=== PATIENT | female | born 1940 | race Caucasian/White ===

== ENCOUNTER 2023-04-19 10:06 | Outpatient (REF) | payer MEDICARE, SELFPAY ==
[2023-04-19 11:56] LABS: Hematocrit 41.5 % (36.0-48.0); Hemoglobin 12.7 g/dL (12.0-16.0); Mean Corpuscular HGB Conc 30.6 g/dL (29.9-35.2); Mean Corpuscular Hemoglobin 26.7 pg (26.7-34.0); Mean Corpuscular Volume 87.4 fL (81.0-99.0); Platelet Count 524 10^3/uL (150-450); Red Blood Count 4.75 10^6/uL (4.20-5.40); Red Cell Distribution Width 16.8 % (11.0-15.0); White Blood Count 25.1 10^3/uL (4.0-11.0)
[2023-04-19 12:40] LABS: Segmented Neut Absolute Manual 22.59 10^3/uL (1.4-6.5)
== END 2023-04-19 10:07 ==
LOC: LAB 10:06
PROVIDERS: PCP Family Medicine; Visit Provider Family Medicine
DX: R71.8 Other abnormality of red blood cells (principal)
CPT/HCPCS: 36415; 85007; 85025; 85027

== ENCOUNTER 2023-07-29 01:03 | Outpatient (REF) | payer MEDICARE, MEDICAID, SELFPAY ==
[2023-07-29 06:58] LABS: Basophils Absolute Auto 0.2 10^3/uL (0.0-0.1); Basophils Percent Auto 0.8 % (0.2-2.0); Eosinophils Percent Auto 0.1 % (0.9-7.0); Hematocrit 43.4 % (36.0-48.0); Hemoglobin 12.8 g/dL (12.0-16.0); Immature Granulocytes Abs Auto 0.49 10^3/uL (0.00-0.03); Immature Granulocytes Pct Auto 2.1 % (0.0-0.5); Lymphocytes Absolute Auto 1.8 10^3/uL (1.2-3.8); Lymphocytes Percent Auto 7.5 % (20.5-60.0); Mean Corpuscular HGB Conc 29.5 g/dL (29.9-35.2); Mean Corpuscular Hemoglobin 24.6 pg (26.7-34.0); Mean Corpuscular Volume 83.3 fL (81.0-99.0); Mean Platelet Volume 9.4 fL (9.5-13.5); Monocytes Absolute Auto 0.4 10^3/uL (0.3-0.8); Monocytes Percent Auto 1.7 % (1.7-12.0); Neutrophils Absolute Auto 20.7 10^3/uL (1.4-6.5); Neutrophils Percent Auto 87.8 % (43.0-75.0); Platelet Count 295 10^3/uL (150-450); Red Blood Count 5.21 10^6/uL (4.20-5.40); Red Cell Distribution Width 22.8 % (11.0-15.0); White Blood Count 23.6 10^3/uL (4.0-11.0)
== END 2023-07-29 01:04 | disposition home or self-care (01) ==
LOC: LAB 01:03
PROVIDERS: PCP Family Medicine; Visit Provider Family Medicine
DX: R71.8 Other abnormality of red blood cells (principal); D72.825 Bandemia
CPT/HCPCS: 36415; 85025

== ENCOUNTER 2023-08-09 14:19 | Outpatient (REF) | payer MEDICARE, MEDICAID, SELFPAY ==
[2023-08-09 14:46] LABS: Bilirubin Urine NEGATIVE (NEGATIVE); Blood Urine TRACE-I (NEGATIVE); Clarity Urine SL CLOUDY (CLEAR); Color Urine LT. YELLOW (YELLOW); Glucose Urine UA NEGATIVE (NEGATIVE); Ketones Urine NEGATIVE (NEGATIVE); Leukocyte Esterase Urine SMALL (NEGATIVE); Nitrite Urine NEGATIVE (NEGATIVE); Protein Urine 30 mg/dL (NEG/TRACE); Urobilinogen Urine 0.2 EU/dL (0.2-1.0)
[2023-08-09 14:48] LABS: Urine Microscopic Indicated YES
[2023-08-09 15:11] LABS: Bacteria Urine SMALL #/HPF (NONE SEEN); WBC Urine 75-100 #/HPF (NONE SEEN)
[2023-08-09 15:12] LABS: Cast Seen? NONE SEEN #/LPF (NONE SEEN); Crystals Seen? None Seen #/HPF (None Seen); Mucus Urine NONE SEEN (NONE SEEN); Squamous Epithelial Cell Urine RARE #/LPF (NONE/RARE); Urine Culture Indicated YES
== END 2023-08-09 14:20 | disposition home or self-care (01) ==
LOC: LAB 14:19
PROVIDERS: PCP Family Medicine; Visit Provider Family Medicine
DX: R41.0 Disorientation, unspecified (principal)
CPT/HCPCS: 81001; 87086; 87150; 87186

== ENCOUNTER 2023-08-14 12:52 | Outpatient (OUT) | payer MEDICARE, MEDICAID, SELFPAY ==
--- NOTE | 2023-08-14 13:40 | MM_ITS ---
Patient: MASSIEL HUNT Exam Date: 08/14/2023 : 1940 Gender:F Ordering : Non-Staff Physician Admission #: [id number] Family : DR NESTOR SANDOVAL M.D. Order #: [id number] CLICK HERE TO VIEW EXAM RADIOLOGY REPORT PROCEDURE: MM TOMOSYNTHESIS SCREENING BI COMPARISON: MG MAMM SCREEN 3D RAI CAD, 08/08/2022. INDICATIONS: Screening Calculator Name NCI Breast Cancer Risk Assessment Tool 5 Year Breast Cancer Risk n/a% Lifetime Breast Cancer Risk n/a% Personal Breast Cancer Yes, Left, Lumpectomy, Unknown age Personal Ovarian Cancer No Treatments Lumpectomy Family Cancers Sister with thyroid cancer at age 30; Sister with skin cancer at age 68; Brother with colon cancer at age 77. LOCATION: [facility] BREAST COMPOSITION: Heterogeneously dense,which may obscure small masses. FINDINGS: DIAGNOSTIC CATEGORY 2--BENIGN FINDING. NO CHANGE FROM COMPARISON. Scattered benign-appearing calcifications are present. Scattered benign-appearing lymph nodes are present. Scattered benign-appearing nodules are present. RIGHT BREAST: No significant suspicious finding. LEFT BREAST: No significant suspicious finding. Asymmetrically small in size. Area of architectural distortion in the upper-outer quadrant deep to a linear scar marker, stable RECOMMENDATIONS: ROUTINE MAMMOGRAM AND CLINICAL EVALUATION IN 12 MONTHS. PLEASE NOTE: A NORMAL MAMMOGRAM DOES NOT EXCLUDE THE POSSIBILITY OF BREAST CANCER. A CLINICALLY SUSPICIOUS PALPABLE LUMP SHOULD BE BIOPSIED. Dictated by: Reji Roque MD on 08/14/2023 at 14:28 Approved by: Reji Roque MD on 08/14/2023 at 14:38
== END 2023-08-14 12:53 | disposition home or self-care (01) ==
LOC: MAMMO 12:52
PROVIDERS: PCP Family Medicine
DX: Z12.31 Encounter for screening mammogram for malignant neoplasm of breast (principal); Z80.0 Family history of malignant neoplasm of digestive organs; Z80.8 Family history of malignant neoplasm of other organs or systems
CPT/HCPCS: 77063; 77067

== ENCOUNTER 2023-08-28 04:29 | Outpatient (REF) | payer MEDICARE, MEDICAID, SELFPAY ==
[2023-08-28 09:40] LABS: Basophils Absolute Auto 0.3 10^3/uL (0.0-0.1); Basophils Percent Auto 0.9 % (0.2-2.0); Eosinophils Percent Auto 0.1 % (0.9-7.0); Hematocrit 47.7 % (36.0-48.0); Hemoglobin 14.3 g/dL (12.0-16.0); Immature Granulocytes Abs Auto 1.12 10^3/uL (0.00-0.03); Immature Granulocytes Pct Auto 3.5 % (0.0-0.5); Lymphocytes Percent Auto 6.3 % (20.5-60.0); Mean Corpuscular Hemoglobin 24.8 pg (26.7-34.0); Mean Corpuscular Volume 82.8 fL (81.0-99.0); Mean Platelet Volume 9.8 fL (9.5-13.5); Monocytes Absolute Auto 0.4 10^3/uL (0.3-0.8); Monocytes Percent Auto 1.4 % (1.7-12.0); Neutrophils Absolute Auto 27.8 10^3/uL (1.4-6.5); Neutrophils Percent Auto 87.8 % (43.0-75.0); Platelet Count 380 10^3/uL (150-450); Red Blood Count 5.76 10^6/uL (4.20-5.40); Red Cell Distribution Width 20.8 % (11.0-15.0)
[2023-08-28 11:03] LABS: Scan Results NEGATIVE; White Blood Count 31.6 10^3/uL (4.0-11.0)
== END 2023-08-28 04:30 | disposition home or self-care (01) ==
LOC: LAB 04:29
PROVIDERS: PCP Family Medicine; Visit Provider Family Medicine
DX: D45 Polycythemia vera (principal); I10 Essential (primary) hypertension
CPT/HCPCS: 36415

== ENCOUNTER 2023-09-18 07:33 | Outpatient (REF) | payer MEDICARE, MEDICAID, SELFPAY ==
[2023-09-18 07:46] LABS: Hematocrit 50.9 % (36.0-48.0); Hemoglobin 15.6 g/dL (12.0-16.0); Mean Corpuscular HGB Conc 30.6 g/dL (29.9-35.2); Mean Corpuscular Hemoglobin 25.4 pg (26.7-34.0); Mean Corpuscular Volume 82.8 fL (81.0-99.0); Platelet Count 312 10^3/uL (150-450); Red Blood Count 6.15 10^6/uL (4.20-5.40); Red Cell Distribution Width 19.9 % (11.0-15.0)
[2023-09-18 08:19] LABS: Alanine Aminotransferase 26 U/L (14-59); Albumin Globulin Ratio 0.7; Albumin Level 3.2 g/dL (3.4-5.0); Alkaline Phosphatase 82 U/L (46-116); Anion Gap 14.3; Aspartate Amino Transferase 29 U/L (15-37); BUN Creatinine Ratio 18.5; Bilirubin Total 0.6 mg/dL (0.2-1.0); Calcium 9.6 mg/dL (8.5-10.1); Carbon Dioxide 22.9 mmol/L (21.0-32.0); Chloride 102 mmol/L (98-107); Estimated GFR (African America 28 (>=60); Estimated GFR (Non-African Ame 23 (>=60); Globulin 4.3 g/dL; Glucose 113 mg/dL (74-106); Potassium 4.2 mmol/L (3.5-5.1); Sodium 135 mmol/L (136-145); Total Protein 7.5 g/dL (6.4-8.2)
[2023-09-18 08:42] LABS: White Blood Count 30.4 10^3/uL (4.0-11.0)
[2023-09-18 08:43] LABS: Band Neutrophils Absolute 0.6 10^3/uL (0.0-0.3); Lymphocytes Absolute Manual 2.43 10^3/uL (1.20-3.80); Monocytes Absolute Manual 1.21 10^3/uL (0.30-0.80); Segmented Neut Absolute Manual 26.14 10^3/uL (1.4-6.5)
== END 2023-09-18 07:34 | disposition home or self-care (01) ==
LOC: LAB 07:33
PROVIDERS: PCP Family Medicine; Visit Provider Family Medicine
DX: N18.30 Chronic kidney disease, stage 3 unspecified (principal); D47.1 Chronic myeloproliferative disease; E08.42 Diabetes mellitus due to underlying condition with diabetic polyneuropathy
CPT/HCPCS: 36415; 80053; 85027

== ENCOUNTER 2023-10-04 04:39 | Outpatient (REF) | payer MEDICARE, MEDICAID, SELFPAY ==
[2023-10-04 09:29] LABS: Calcium 9.6 mg/dL (8.5-10.1); Carbon Dioxide 24.8 mmol/L (21.0-32.0); Chloride 103 mmol/L (98-107); Estimated GFR (African America 28 (>=60); Estimated GFR (Non-African Ame 23 (>=60); Glucose 97 mg/dL (74-106); Potassium 3.8 mmol/L (3.5-5.1); Sodium 140 mmol/L (136-145)
== END 2023-10-04 04:40 | disposition home or self-care (01) ==
LOC: LAB 04:39
PROVIDERS: PCP Family Medicine; Visit Provider Family Medicine
DX: N28.9 Disorder of kidney and ureter, unspecified (principal); N18.9 Chronic kidney disease, unspecified
CPT/HCPCS: 36415; 80048

== ENCOUNTER 2023-10-14 06:46 | Outpatient (REF) | payer MEDICARE, MEDICAID, SELFPAY ==
[2023-10-14 10:02] LABS: Hematocrit 47.2 % (36.0-48.0); Hemoglobin 14.4 g/dL (12.0-16.0); Mean Corpuscular HGB Conc 30.5 g/dL (29.9-35.2); Mean Corpuscular Volume 82.1 fL (81.0-99.0); Mean Platelet Volume 9.6 fL (9.5-13.5); Platelet Count 387 10^3/uL (150-450); Red Blood Count 5.75 10^6/uL (4.20-5.40); Red Cell Distribution Width 18.9 % (11.0-15.0); White Blood Count 28.3 10^3/uL (4.0-11.0)
[2023-10-14 10:24] LABS: Segmented Neut Absolute Manual 25.18 10^3/uL (1.4-6.5)
[2023-10-14 10:25] LABS: Band Neutrophils Absolute 0.6 10^3/uL (0.0-0.3); Lymphocytes Absolute Manual 1.98 10^3/uL (1.20-3.80); Monocytes Absolute Manual 0.56 10^3/uL (0.30-0.80)
== END 2023-10-14 06:47 | disposition home or self-care (01) ==
LOC: LAB 06:46
PROVIDERS: PCP Family Medicine; Visit Provider Family Medicine
DX: Z51.81 Encounter for therapeutic drug level monitoring (principal)
CPT/HCPCS: 36415; 85027

== ENCOUNTER 2023-10-28 05:56 | Outpatient (REF) | payer MEDICARE, MEDICAID, SELFPAY ==
[2023-10-28 09:20] LABS: Hematocrit 50.5 % (36.0-48.0); Mean Corpuscular HGB Conc 29.7 g/dL (29.9-35.2); Mean Corpuscular Hemoglobin 24.7 pg (26.7-34.0); Mean Corpuscular Volume 83.1 fL (81.0-99.0); Mean Platelet Volume 9.8 fL (9.5-13.5); Platelet Count 424 10^3/uL (150-450); Red Blood Count 6.08 10^6/uL (4.20-5.40); Red Cell Distribution Width 19.1 % (11.0-15.0)
[2023-10-28 09:52] LABS: Band Neutrophils Absolute 0.3 10^3/uL (0.0-0.3); Lymphocytes Absolute Manual 3.29 10^3/uL (1.20-3.80); Monocytes Absolute Manual 0.65 10^3/uL (0.30-0.80); Segmented Neut Absolute Manual 28.62 10^3/uL (1.4-6.5); White Blood Count 32.9 10^3/uL (4.0-11.0)
[2023-10-28 09:53] LABS: Anisocytosis 1+; Microcytosis 1+
== END 2023-10-28 05:57 | disposition home or self-care (01) ==
LOC: LAB 05:56
PROVIDERS: PCP Family Medicine; Visit Provider Family Medicine
DX: D64.9 Anemia, unspecified (principal)
CPT/HCPCS: 36415; 85027

== ENCOUNTER 2023-11-27 01:50 | Outpatient (REF) | payer MEDICARE, MEDICAID, SELFPAY ==
--- OUTSIDE RECORDS SUMMARY | 2023-11-27 01:57 | XMS_ITS | CCD ---
Author Name Unknown Address [id number] [place] [address] Organization [facility] Care Team Providers Care Environmental Health And Safety Leader Name Role Phone ARA ROBB Attending Unavailable PETRA ARAIZA Attending Unavailable SELF, SELF Referring Unavailable [facility] Referring Unavailable PETRA ARAIZA Attending Unavailable PETRA ARAIZA Referring Unavailable PETRA ARAIZA Attending Unavailable LOU RANDHAWA Admitting Unavailable LOU RANDHAWA Attending Unavailable BENNIE ALBRIGHT Primary Care Unavailable BENNIE ALBRIGHT Referring Unavailable Duy, Samueli Attending Unavailable SELF, REFERRED Referring Unavailable NATALEE BENNIE Primary Care Unavailable Duy, Hani Admitting Unavailable ALASTAL, YASEEN Admitting Unavailable ISREALSTAL, YASEEN Attending Unavailable BENNIE ALBRIGHT Referring Unavailable NATALEE BENNIE Primary Care Unavailable VÍCTOR, BECK Primary Care Unavailable NATALEE ., DR AVERY Admitting Unavailable HOSailaja ., DR AVERY Attending Unavailable HOY ., DR AVERY Consulting Unavailable VÍCTOR, BECK Primary Care Unavailable ERVIN, BARRAGAN Admitting Unavailable ERVINLAUREL Attending Unavailable ERVIN, BARRAGAN Consulting Unavailable VÍCTOR, BECK Primary Care Unavailable TRACI CARMICHAEL Attending Unavailable JESSICA CARMICHAELA Jany Consulting Unavailable AMOL, TRACI C Admitting Unavailable VÍCTOR, BECK Primary Care Unavailable JOSE CARMICHAELINDA C Admitting Unavailable TRACI CARMICHAEL Attending Unavailable NATALEE ., DR AVERY Admitting Unavailable NATALEE ., DR AVERY Attending Unavailable NATALEE ., DR AVERY Consulting Unavailable [place], DR ROGE Shoemaker Consulting Unavailable JOMAR, DR SON Azevedo Attending UnavailBECK Johnson Primary Care Unavailable JOMAR, DR SON Azevedo Consulting Unavaildario HADLEY, DR SON Azevedo Admitting Unavailabl e WALTER ., TRUPTI MAKI Consulting Unavaildario EDDY, FERMÍN Consulting Unavailable ROGE GORDON Consulting Unavailable MARIETTA MARTEL Consulting Unavailable CLARA HE Consulting Unavailable MENDOZA ., DR FARSHAD Rose Consulting Unavaila ble FAWWAOg, SAN H Admitting Unavailable FARONNY, SAN H Attending Unavailable NATALEE ., DR AVERY Consulting Unavailable CHERYL ., DR JOSHUA Rose Consulting Unavailable QUINCY, DR ROGE Shoemaker Consulting Unavailable RIVERA, DR JORGE Lopez Consulting Unavailable NADERER, DR BLAIRE Love Consulting Unavailable HAY ., DR CLAROS Consulting Unavailable SAMSA ., IJEOMA Consulting Unavailable CLARITZA, SHAIKH Levon Consulting Unavailable BROOKE COSTELLO Consulting Unavailable YOUNG, ROGE Consulting Unavailable KERRI SCHULTZ Consulting Unavailable CATRACHO LEWSI Consulting Unavailable BECK RENEE Primary Care Unavailable NATALEE ., DR AVERY Admitting Unavailable NATALEE ., DR AVERY Attending Unavailable NATALEE ., DR AVERY Consulting Unavailable TRACI CARMICHAEL Attending Unavailable MOUKAMARY LOU MCNULTY Attending Unavailable APLINGANTONIO Attending Unavailable APLINGANTONIO Attending Unavailable APLANTONIO TIJERINA Referring Unavailable Allergies Allergy Classification Reported Allergen(s) Allergy Type Date of Onset Reaction(s) Facility (2 sources) Ciprofloxacin Drug Allergy 03-23-2022 [facility] Repository Problems Active Problems Problem Classification Problem Date Documented Da te Episodic/Chronic Cancer of breast (1 source) Malignant neoplasm of unspecified site of left female breast; Translations: [MAL WILDA UNS SITE LT FEMALE BREAST] Onset: 02-08-2023 Chronic Cardiac dysrhythmias (7 sources) Unspecified atrial fibrillation; Translations: [Paroxysmal atrial fibrillation] Onset: 07-28-2022 Chronic Chronic kidney disease (2 sources) Chronic kidney disease, unspecified; Translations: [Chronic kidney disease, unspecified] Onset: 09-20-2023 Chronic Coagulation and hemorrhagic disorders (1 source) Coagulation defect, unspecified; Translations: [COAGULATION DEFECT UNSPECIFIED] Onset: 04-05-2022 Chronic Delirium, dementia, and amnestic and other cognitive disorders (1 source) Unspecified dementia without behavioral disturbance; Translations: [UNS PARI W/O BEHAVIORAL DIST] Onset: 04-05-2022 Chronic Diabetes mellitus with complications (2 sources) Type 2 diabetes mellitus with hyperglycemia; Translations: [Type 2 diabetes mellitus with diabetic chronic kidney disease] Onset: 04-05-2022 Chronic Diabetes mellitus without complication (1 source) Type 2 diabetes mellitus without complications; Translations: [TYPE 2 DM WITHOUT COMPLICATIONS] Onset: 02-08-2023 Chronic Diseases of white blood cells (5 sources) Elevated white blood cell count, unspecified; Translations: [Bandemia] Onset: 01-18-2023 Chronic E Codes: Fall (1 source) Other fall on same level, initial encounter; Translations: [OTHER FALL ON SAME LEVEL INITIAL] Onset: 02-08-2023 Episodic Genitourinary symptoms and ill-defined conditions (1 source) Personal history of urinary (tract) infections; Translations: [PERS HX URINARY TRACT INFECTIONS] Onset: 02-08-2023 Episodic Leukemias (4 sources) Chronic lymphocytic leukemia of B-cell type not having achieved remission; Translations: [CLL B-CELL TYPE NOT ACHIEVED REMISS] Onset: 03-08-2023 Chronic Neoplasms of unspecified nature or uncertain behavior (1 source) Polycythemia vera; Translations: [POLYCYTHEMIA VERA] Onset: 04-05-2022 Chronic Other aftercare (5 sources) Other terminal superintendent (current) drug therapy; Translations: [OTH MCFP CURRENT DRUG THERAPY] Onset: 02-08-2023 Episodic Other aftercare (1 source) custodial (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 of aspirin; Translations: [MCFP CURRENT USE OF ASPIRIN] Onset: 03-06-2023 Episodic Other aftercare (1 source) custodial (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 of non-steroidal anti-inflammatories (NSAID); Translations: [MCFP USE NSAID] Onset: 02-08-2023 Episodic Other connective tissue disease (2 sources) Repeated falls; Translations: [Repeated falls] Onset: 09-20-2023 Episodic Other diseases of kidney and ureters (2 sources) Disorder of kidney and ureter, unspecified; Translations: [Disorder of kidney and ureter, unspecified] Onset: 09-20-2023 Episodic Other fractures (1 source) Unspecified fracture of right acetabulum, initial encounter for closed fracture; Translations: [UNS FX RT ACETAB INITIAL CLOS FX] Onset: 02-08-2023 Episodic Other fractures (1 source) Other specified fracture of right pubis, initial encounter for closed fracture; Translations: [OTHER SPEC FX RT PUBIS INIT CLOS FX] Onset: 02-08-2023 Episodic Other non-traumatic joint disorders (3 sources) Pain in right hip; Translations: [PAIN IN RIGHT HIP] Onset: 02-06-2023 Episodic Other nutritional; endocrine; and metabolic disorders (1 source) Other disorders of bilirubin metabolism; 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 Other nutritional; endocrine; and metabolic disorders (1 source) Obesity, unspecified; Translations: [OBESITY UNSPECIFIED] Onset: 04-05-2022 Chronic Residual codes; unclassified (1 source) Acquired absence of unspecified breast and nipple; Translations: [ACQUIRED ABSENCE UNS BREAST AND NIPPLE] Onset: 02-08-2023 Episodic Screening and history of mental health and substance abuse codes (1 source) Personal history of nicotine dependence; Translations: [PERSONAL HISTORY OF NICOTINE DEPEND] Onset: 02-08-2023 Episodic Unclassified (1 source) OTHER TOXIC ENCEPHALOPATHY; Translations: [OTHER TOXIC ENCEPHALOPATHY] Onset: 04-05-2022 Unclassified (1 source) CONTACT W/AND (SUSP) EXPOS COVID-19; Translations: [CONTACT W/AND (SUSP) EXPOS COVID-19] Onset: 04-05-2022 Unclassified (1 source) CHRN KIDNEY DISEASE STG 3 UNSP; Translations: [CHRN KIDNEY DISEASE STG 3 UNSP] Onset: 04-05-2022 Urinary tract infections (1 source) Urinary tract infection, site not specified; Translations: [UTI SITE NOT SPECIFIED] Onset: 02-08-2023 Episodic Past or Other Problems Problem Classification Problem Date Documented Da te Episodic/Chronic Acute and unspecified renal failure (1 source) Acute kidney failure, unspecified; Translations: [ACUTE KIDNEY FAILURE UNSPECIFIED] Onset: 04-05-2022 Episodic Aspiration pneumonitis; food/vomitus (1 source) Pneumonitis due to inhalation of food and vomit; Translations: [PNEUMONITIS D/T INHAL FOOD AND VOMIT] Onset: 04-05-2022 Episodic Cancer of breast (1 source) Personal history of malignant neoplasm of breast; Translations: [PERS HX MALIGNANT NEOPLASM BREAST] Onset: 04-05-2022 Episodic Cardiac dysrhythmias (3 sources) Tachycardia, unspecified; Translations: [TACHYCARDIA UNSPECIFIED] Onset: 12-25-2022 Episodic Leukemias (1 source) Myelodysplastic disease, 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; Translations: [MYELODYSPLASTIC DZ NOT CLASSIFIED] Onset: 04-05-2022 Episodic Malaise and fatigue (1 source) Weakness; Translations: [WEAKNESS] Onset: 04-05-2022 Episodic Nonmalignant breast conditions (1 source) Unspecified lump in the left breast, unspecified quadrant; Translations: [UNS LUMP IN LT BREAST UNS QUADRANT] Onset: 04-05-2022 Episodic Other aftercare (1 source) 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; Translations: [MCFP CURRENT USE OF INSULIN] Onset: 04-05-2022 Episodic Other aftercare (1 source) 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 exterminator (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 of anticoagulants; Translations: [TEMPLATE LAYOUT WORKER CURRNT USE ANTICOAGULANTS] Onset: 04-05-2022 Episodic Other gastrointestinal disorders (4 sources) Dysphagia, oropharyngeal phase; Translations: [DYSPHAGIA OROPHARYNGEAL PHASE] Onset: 05-08-2022 Episodic Other liver diseases (1 source) Abnormal levels of other serum enzymes; Translations: [ABNORMAL LEVELS OTHER SERUM ENZYMES] Onset: 04-05-2022 Episodic Other lower respiratory disease (3 sources) Other forms of dyspnea; Translations: [OTHER FORMS OF DYSPNEA] Onset: 12-25-2022 Episodic Other lower respiratory disease (1 source) Other nonspecific abnormal finding of lung field; Translations: [OTH NONSPECIFIC ABN FIND LNG FIELD] Onset: 04-05-2022 Episodic Other nutritional; endocrine; and metabolic disorders (1 source) Body mass index (BMI) 29.0-29.9, adult; Translations: [BODY MASS INDEX BMI 29.0-29.9 ADULT] Onset: 04-05-2022 Episodic Pancreatic disorders (not diabetes) (1 source) Biliary acute pancreatitis without necrosis or infection; Translations: [BILIARY ACUTE PANCREATIT WO NEC/INF] Onset: 04-05-2022 Episodic Pleurisy; pneumothorax; pulmonary collapse (1 source) Pleural effusion, not elsewhere classified; Translations: [PLEURAL EFFUSION NEC] Onset: 04-05-2022 Episodic Respiratory failure; insufficiency; arrest (adult) (1 source) Acute respiratory failure with hypoxia; Translations: [ACUTE RESPIRATORY FAIL W/HYPOXIA] Onset: 04-05-2022 Episodic Septicemia (except in labor) (4 sources) Sepsis, unspecified organism; Translations: [Sepsis due to Escherichia coli [E. coli]] Onset: 03-22-2022 Episodic Results Test Name Value Interpretation Reference Range Facility Office Visiton 09-20-2023 Follow-up visit [id number] Jennifer Tafoya 1940 F Date Provider Department Center 09/20/2023 MARY LOU FELIZ CARD [facility] Family History Problem Relation Age of Onset Diabetes Sister Diabetes Brother Diabetes Maternal Grandfather Family Status - Relation Status Age at Sister Brother Maternal Grandfather Level of Service:[address] [place] OFFICE/OUTPATIENT ESTABLISHED MOD MDM 30-39 MIN Reason for Visit and Comments: Follow-up [302004] Normal [facility] CBC W MANUAL DIFFon 03-08-20 23 ANISOCYTOSIS 1+ Normal [facility] Comment on above: Performed By: #### C OMDI ####[facility] [address] [place] [address]Dr. Yiroxi Barragan ATYPICAL LYMPH # Normal [facility] Comment on above: Performed By: #### C BCJERSON ####[facility] [address] [place] [address]Dr. Yilan Barragan ATYPICAL LYMPH % Normal [facility] Comment on above: Performed By: #### C BCMAN ####[facility] [address] [place] [address]Dr. Yilan Barragan BAND # 1.3 103/ul Critically high 0.0-0.3 [facility] Comment on above: Performed By: #### C BCMAN ####[facility] [address] [place] [address]Dr. Yilan Barragan BAND % 4 % Normal 0-5 [facility] Comment on above: Performed By: #### C BCMAN ####[facility] [address] [place] [address]Dr. Yilan Barragan BASOM # 0.00 103/ul Normal 0.00-0.10 [facility] Comment on above: Performed By: #### C BCMAN ####[facility] [address] [place], [place] [address]Dr. Yilan Barragan BASOM % 0.0 % Critically low 0.2-2.0 [facility] Comment on above: Performed By: #### C OMID ####[facility] [address] [place] [address]Dr. Bhavani Barragan BLAST # Normal [facility] Comment on above: Performed By: #### C OMID ####[facility] [address] [place] [id number]. Bhavani Barragan BLAST % Normal [facility] Comment on above: Performed By: #### C OMID ####[facility] [address] [place] [address]Dr. Bhavani Barragan CORRECTED WBC Normal 4.0-11.0 The [facility] Comment on above: Performed By: #### C OMID ####[facility] [address] [place] [address]Dr. Bhavani Barragan EOS # 0.00 103/ul Normal 0.00-0.70 [facility] Comment on above: Performed By: #### C OMID ####[facility] [address] [place], [place] [address]Dr. Bhavani Barragan EOS% 0.0 % Critically low 0.9-7.0 [facility] Comment on above: Performed By: #### C OMID ####[facility] [address] [place], [place] [address]Dr. Bhavani Barragan HCT 38.1 % Normal 36.0-48.0 [facility] Comment on above: Performed By: #### C OMID ####[facility] [address] [place] [address]Dr. Bhavani Barragan HGB 11.6 g/dl Critically low 12.0-16.0 [facility] Comment on above: Performed By: #### C OMID ####[facility] [address] [place], [place] [address]Dr. Bhavani Barragan LYMPHM # 1.58 103/ul Normal 1.20-3.80 [facility] Comment on above: Performed By: #### C OMID ####[facility] [address] [place], [place] [address]Dr. Bhavani Barragan LYMPHM% 5.0 % Critically low 20.5-60.0 [facility] Comment on above: Performed By: #### C OMID ####[facility] [address] [place] [id number]. Bhavani Barragan MCH 29.7 pg Normal 26.7-34.0 [facility] Comment on above: Performed By: #### C OMID ####[facility] [address] [place] [id number]. Bhavani Barragan MCHC 30.4 g/dl Normal 29.9-35.2 [facility] Comment on above: Performed By: #### C OMID ####[facility] [address] [place] [address]Dr. Bhavani Barragan MCV 97.7 fL Normal 81.0-99.0 [facility] Comment on above: Performed By: #### C OMID ####[facility] [address] [place] [address]Dr. Bhavani Barragan METAMYELOCYTE # Normal [facility] Comment on above: Performed By: #### C OMID ####[facility] [address] [place] [address]Dr. Bhavani Barragan METAMYELOCYTE % Normal [facility] Comment on above: Performed By: #### C OMID ####[facility] [address] [place] [address]Dr. Bhavani Barragan MONOM# 0.95 103/ul Critically high 0.30-0.80 [facility] Comment on above: Performed By: #### C OMID ####[facility] [address] [place] [phone]. Bhavani Barragan MONOM% 3.0 % Normal 1.7-12.0 [facility] Comment on above: Performed By: #### C OMID ####[facility] [address] [place] [address]Dr. Bhavani Barragan MPV 10.6 fL Normal 9.5-13.5 [facility] Comment on above: Performed By: #### C ALICIAMAN ####[facility] [address] [place], [place] [address]Gx. Bhavani Barragan MYELOCYTE # Normal [facility] Comment on above: Performed By: #### C BCMAN ####[facility] [address] [place], [place] [address]Sb. Bhavani Barragan MYELOCYTE % Normal [facility] Comment on above: Performed By: #### C BCMAN ####[facility] [address] [place], [place] [address]Vx. Bhavani Barragan NRBC Normal [facility] Comment on above: Performed By: #### C BCMAN ####[facility] [address] [place] [phone]. Bhavani Barragan PLT 280 103/ul Normal 150-450 [facility] Comment on above: Performed By: #### C BCJERSON ####[facility] [address] [place] [phone]. Bhavani Barragan RBC 3.90 106/ul Critically low 4.20-5.40 [facility] Comment on above: Performed By: #### C BCJERSON ####[facility] [address] [place] [phone]. Bhavani Barragan RDW 18.2 % Critically high 11.0-15.0 [facility] Comment on above: Performed By: #### C BCJERSON ####[facility] [address] [place] [phone]. Bhavani Barragan SEG # 27.90 103/ul Critically high 1.40-6.50 [facility] Comment on above: Performed By: #### C BCJERSON ####[facility] [address] [place], [place] [address]Jf. Bhavani Barragan SEG % 88.0 % Critically high 43.0-75.0 [facility] Comment on above: Performed By: #### C BCMAN ####[facility] [address] [place], [place] [address]Ss. Bhavani Barragan WBC 31.7 103/ul Critically high 4.0-11.0 [facility] Comment on above: Performed By: #### C ALICIAMAN ####[facility] [address] [place] [address]Dr. Bhavani Barragan PERIPHERAL SMEARon 3 Pathologist Cyto stain Nom (Cvx/Vag) [ID] DR. AFTAB SCHAFER Normal [facility] Comment on above: Result Comment: Revi ew of peripheral smear reveals RBCs with anisocytosis. The platelets areadequate in number with normal morphology. There is leukocytosis withneutrophilia. The WBC morphology is unremarkable. No atypical lymphocytes orimmature blasts are seen. The findings are suggestive of a reactive process.Clinical correlation is recommended. Performed By: #### P ERSMR ####[facility] [address] [place], [place] [address]Dr. Bhavani Barragan CBC W MANUAL DIFFon 03-01-20 23 ANISOCYTOSIS 1+ Normal [facility] Comment on above: Performed By: #### C OMID ####[facility] [address] [place], [place] [address]Dr. Bhavani Barragan ATYPICAL LYMPH # Normal [facility] Comment on above: Performed By: #### C OMID ####[facility] [address] [place], [place] [address]Dr. Bhavani Barragan ATYPICAL LYMPH % Normal [facility] Comment on above: Performed By: #### C OMID ####[facility] [address] [place] [address]Dr. Bhavani Barragan BAND # 1.8 103/ul Critically high 0.0-0.3 [facility] Comment on above: Performed By: #### C BCMAN ####[facility] [address] [place] [address]Dr. Bhavani Barragan BAND % 5 % Normal 0-5 [facility] Comment on above: Performed By: #### C BCMAN ####[facility] [address] [place] [address]Dr. Bhavani Barragan BASOM # 0.00 103/ul Normal 0.00-0.10 [facility] Comment on above: Performed By: #### C OMID ####[facility] [address] [place] [phone]. Bhavani Barragan BASOM % 0.0 % Critically low 0.2-2.0 [facility] Comment on above: Performed By: #### C BCMAN ####[facility] [address] [place] [phone]. Bhavani Barragan BLAST # Normal [facility] Comment on above: Performed By: #### C BCMAN ####[facility] [address] [place] [address]Dr. Bhavani Barragan BLAST % Normal [facility] Comment on above: Performed By: #### C BCMAN ####[facility] [address] [place] [address]Dr. Bhavani Barragan CORRECTED WBC Normal 4.0-11.0 [facility] Comment on above: Performed By: #### C BCJERSON ####[facility] [address] [place], [place] [address]Dr. Bhavani Barragan EOS # 0.00 103/ul Normal 0.00-0.70 [facility] Comment on above: Performed By: #### C BCJERSON ####[facility] [address] [place] [address]Dr. Bhavani Barragan EOS% 0.0 % Critically low 0.9-7.0 [facility] Comment on above: Performed By: #### C BCJERSON ####[facility] [address] [place] [address]Dr. Bhavani Barragan HCT 32.6 % Critically low 36.0-48.0 [facility] Comment on above: Performed By: #### C BCMAN ####[facility] [address] [place], [place] [address]Dr. Bhavani Barragan HGB 10.0 g/dl Critically low 12.0-16.0 [facility] Comment on above: Performed By: #### C BCMAN ####[facility] [address] [place], [place] [address]Dr. Bhavani Barragan LYMPHM # 1.75 103/ul Normal 1.20-3.80 [facility] Comment on above: Performed By: #### C OMID ####[facility] [address] [place] [phone]. Bhavani Barragan LYMPHM% 5.0 % Critically low 20.5-60.0 [facility] Comment on above: Performed By: #### C OMID ####[facility] [address] [place] [phone]. Bhavani Barragan MCH 29.6 pg Normal 26.7-34.0 [facility] Comment on above: Performed By: #### C OMID ####[facility] [address] [place] [phone]. Bhavani Barragan MCHC 30.7 g/dl Normal 29.9-35.2 [facility] Comment on above: Performed By: #### C OMID ####[facility] [address] [place] [address]Dr. Bhavani Barragan MCV 96.4 fL Normal 81.0-99.0 [facility] Comment on above: Performed By: #### C OMID ####[facility] [address] [place] [phone]. Bhavani Barragan METAMYELOCYTE # Normal [facility] Comment on above: Performed By: #### C OMID ####[facility] [address] [place] [phone]. Bhavani Barragan METAMYELOCYTE % Normal [facility] Comment on above: Performed By: #### C OMID ####[facility] [address]avus[address] [place] [phone]. Bhavani Barragan MONOM# 0.70 103/ul Normal 0.30-0.80 [facility] Comment on above: Performed By: #### C OMID ####[facility] [address] [place] [phone]. Bhavani Barragan MONOM% 2.0 % Normal 1.7-12.0 [facility] Comment on above: Performed By: #### C OMID ####[facility] [address] [place], [place] [address]Dr. Bhavani Barragan MPV 9.8 fL Normal 9.5-13.5 [facility] Comment on above: Performed By: #### C OMID ####[facility] [address] [place], [place] [address]Yi. Bhavani Barragan MYELOCYTE # Normal [facility] Comment on above: Performed By: #### C OMID ####[facility] [address] [place] [phone]. Bhavani Barragan MYELOCYTE % Normal [facility] Comment on above: Performed By: #### C OMID ####[facility] [address]orph[address] [place] [phone]. Bhavani Barragan NRBC Normal [facility] Comment on above: Performed By: #### C OMID ####[facility] [address]ox[address] [place] [phone]. Bhavani Barragan PLT 382 103/ul Normal 150-450 [facility] Comment on above: Performed By: #### C OMID ####[facility] [address]ib[address]wd[address] [place] [phone]. Bhavani Barragan RBC 3.38 106/ul Critically low 4.20-5.40 [facility] Comment on above: Performed By: #### C OMID ####[facility] [address]kwwnkvr[address] [place] [address]Dr. Bhavani Barragan RDW 17.7 % Critically high 11.0-15.0 [facility] Comment on above: Performed By: #### C OMID ####[facility] Dqwskbnegv4[address] [place] [phone]. Bhavani Barragan SEG # 30.80 103/ul Critically high 1.40-6.50 [facility] Comment on above: Performed By: #### C OMID ####[facility] Ekezbgdwav9[address] [place] [id number]. Bhavani Barragan SEG % 88.0 % Critically high 43.0-75.0 [facility] Comment on above: Performed By: #### C OMID ####[facility] Sumtlextal[address] [place] [address]Dr. Bhavani Barragan WBC 35.0 103/ul Critically high 4.0-11.0 [facility] Comment on above: Performed By: #### C BCMAN ####[facility] Sxwxugrqsc[address] [place] [address]Dr. Bhavani Barragan PROF 14(COMP METB)on 023 Albumin [Mass/Vol] 2.6 g/dL Critically low 3.4-5.0 [facility] Comment on above: Performed By: #### C MP, TSH ####[facility] Zhscsnnlun[address] [place] [address]Dr. Bhavani Barragan Albumin/Globulin [Mass ratio] 0.6 {ratio} Normal [facility] Comment on above: Performed By: #### C MP, TSH ####[facility] Ggqhhzrfav[address] [place] [address]Dr. Bhavani Barragan ALP [Catalytic activity/Vol] 117 U/L Critically high 46-116 [facility] Comment on above: Performed By: #### C MP, TSH ####[facility] Gfueliqutw[address] [place] [address]Dr. Bhavani Barragan ALT [Catalytic activity/Vol] 11 U/L Critically low 14-59 [facility] Comment on above: Performed By: #### C MP, TSH ####[facility] Cqyewsyzav[address] [place] [address]Dr. Bhavani Barragan Anion gap [Moles/Vol] 13.0 mmol/L Normal [facility] Comment on above: Performed By: #### C MP, TSH ####[facility] Wfhvjzffbq56[address] [place] [address]Dr. Bhavani Barragan AST [Catalytic activity/Vol] 19 U/L Normal 15-37 [facility] Comment on above: Performed By: #### C MP, TSH ####[facility] Vpsqftdbqa7[address] [place] [address]Dr. Bhavani Barragan Bilirubin [Mass/Vol] 0.4 mg/dL Normal 0.2-1.0 [facility] Comment on above: Performed By: #### C MP, TSH ####[facility] Elnrrmqike8867 [place] [phone]. Bhavani Barragan Calcium [Mass/Vol] 8.9 mg/dL Normal 8.5-10.1 [facility] Comment on above: Performed By: #### C MP, TSH ####[facility] Hlflugjwiv[address] [place] [address]Dr. Bhavani Barragan Chloride [Moles/Vol] 103 mmol/L Normal 98-107 [facility] Comment on above: Performed By: #### C MP, TSH ####[facility] Przbqrpqoc9304 [place] [address]Dr. Bhavani Barragan CO2 [Moles/Vol] 26.8 mmol/L Normal 21.0-32.0 [facility] Comment on above: Performed By: #### C MP, TSH ####[facility] Mcjvlmdsbs[address] [place] [address]Dr. Bhavani Barragan Creatinine [Mass/Vol] 1.44 mg/dL Critically high 0.55-1.02 [facility] Comment on above: Performed By: #### C MP, TSH ####[facility] Svcmsxngzt2[address] [place] [address]Dr. Bhavani Barragan EGFR-AF SING[place]AN 42 mL/min/1.73m2 Critically low >=60 [facility] Comment on above: Performed By: #### C MP, TSH ####[facility] Orccdozmnb[address] [place], [place] [address]Dr. Bhavani Barragan EGFR-NON AF [place]APOREAN 35 mL/min/1.73m2 Critically low >=60 [facility] Comment on above: Performed By: #### C MP, TSH ####[facility] Ordcvufnyl[address] [place] [address]Dr. Bhavani Barragan Globulin (S) [Mass/Vol] 4.4 g/dL Normal [facility] Comment on above: Performed By: #### C MP, TSH ####[facility] Yrpcpdxuel2743 [place] [address]Dr. Bhavani Barragan Glucose [Mass/Vol] 90 mg/dL Normal 74-106 [facility] Comment on above: Performed By: #### C MP, TSH ####[facility] Srefndjokg5[address] [place] [address]Dr. Bhavani Barragan Potassium [Moles/Vol] 4.8 mmol/L Normal 3.5-5.1 [facility] Comment on above: Performed By: #### C MP, TSH ####[facility] Olekdwfzda4379 [place] [phone]. Bhavani Barragan Protein [Mass/Vol] 7.0 g/dL Normal 6.4-8.2 [facility] Comment on above: Performed By: #### C MP, TSH ####[facility] Aonamhwqwx64[address] [place] [address]Dr. Bhavani Barragan Sodium [Moles/Vol] 138 mmol/L Normal 136-145 [facility] Comment on above: Performed By: #### C MP, TSH ####[facility] Jhmakjjlug[address] [place], [place] [address]Dr. Bhavani Barragan Urea nitrogen [Mass/Vol] 32.0 mg/dL Critically high 7.0-18.0 [facility] Comment on above: Performed By: #### C MP, TSH ####[facility] Zrqiadqffp[address] [place], [place] [address]Dr. Bhavani Barragan Urea nitrogen/Creatinine [Mass ratio] 22.2 mg/mg Normal [facility] Comment on above: Performed By: #### C MP, TSH ####[facility] Cffmunceqw027[address] [place] [address]Dr. Bhavani Barragan TSHon 03-01-2023 TSH 3.630 uIU/mL Normal 0.358-3.740 [facility] Comment on above: Performed By: #### C MP, TSH ####[facility] Znmbphhyth[address] [place], [place] [address]Dr. Bhavani Barragan CULTURE URINEon 02-09-2023 CULTURE URINE Normal [facility] Comment on above: Performed By: #### U RCX ####[facility] Tgwtqoyarz637[address] [place], [place] [address]Dr. Bhavani Barragan CBC W MANUAL DIFFon 02-07-20 ANISOCYTOSIS 1+ Normal [facility] Comment on above: Performed By: #### C BCJERSON ####[facility] Qwfjdsaeme50[address] [place] [address]Dr. Bhavani Barragan ATYPICAL LYMPH # Normal [facility] Comment on above: Performed By: #### C OMID ####[facility] Nrlvnntowi17[address] [place] [phone]. Yilan Barragan ATYPICAL LYMPH % Normal [facility] Comment on above: Performed By: #### C BCJERSON ####[facility] Yvbwktctox60[address] [place] [address]Dr. Bhavani Barragan BAND # 1.2 103/ul Critically high 0.0-0.3 [facility] Comment on above: Performed By: #### C OMID ####[facility] Lopmjzlnzg30[address] [place] [address]Dr. Jayceelan Barragan BAND % 5 % Normal 0-5 [facility] Comment on above: Performed By: #### C OMID ####[facility] Jqpheluswg[address] [place], [place] [address]Dr. Bhavani Barragan BASOM # 0.00 103/ul Normal 0.00-0.10 [facility] Comment on above: Performed By: #### C OMID ####[facility] Yrhqisxhjo49[address] [place] [address]Dr. Bhavani Barragan BASOM % 0.0 % Critically low 0.2-2.0 [facility] Comment on above: Performed By: #### C OMID ####[facility] Gxusperbai85[address] [place] [address]Dr. Bhavani Barragan BLAST # Normal [facility] Comment on above: Performed By: #### C OMID ####[facility] Ibbjgmxxhs[address] [place], [place] [address]Dr. Jayceelan Barragan BLAST % Normal [facility] Comment on above: Performed By: #### C OMID ####[facility] Gjhzxikedv[address] [place], [place] [address]Dr. Jayceelan Barragan CORRECTED WBC Normal 4.0-11.0 [facility] Comment on above: Performed By: #### C OMID ####[facility] Mqerwbjdkq9525 [place], [place] [address]Rq. Bhavani Barragan EOS # 0.00 103/ul Normal 0.00-0.70 [facility] Comment on above: Performed By: #### C OMID ####[facility] Ejwnelnlho0058 [place], [place] [address]Hu. Bhavani Barragan EOS% 0.0 % Critically low 0.9-7.0 [facility] Comment on above: Performed By: #### C OMID ####[facility] Yjasakyrxj6737 [place], [place] [address]Ep. Bhavani Barragan HCT 39.3 % Normal 36.0-48.0 [facility] Comment on above: Performed By: #### C OMID ####[facility] Vpjiwdqwac14[address] [place] [phone]. Bhavani Barragan HGB 12.6 g/dl Normal 12.0-16.0 [facility] Comment on above: Performed By: #### C OMID ####[facility] Mucbmmwgby9931 [place] [phone]. Bhavani Barragan LYMPHM # 2.11 103/ul Normal 1.20-3.80 [facility] Comment on above: Performed By: #### C OMID ####[facility] Rmmzcqaxxg5198 [place] [phone]. Bhavani Barragan LYMPHM% 9.0 % Critically low 20.5-60.0 [facility] Comment on above: Performed By: #### C OMID ####[facility] Glerhzcdab3186 [place], [place] [address]Fw. Bhavani Barragan MCH 29.6 pg Normal 26.7-34.0 [facility] Comment on above: Performed By: #### C OMID ####[facility] Foxbehjeot4[address] [place] [phone]. Bhavani Barragan MCHC 32.1 g/dl Normal 29.9-35.2 [facility] Comment on above: Performed By: #### C OMID ####[facility] Dhzskaoyjq2382 [place] [phone]. Bhavani Barragan MCV 92.3 fL Normal 81.0-99.0 [facility] Comment on above: Performed By: #### C OMID ####[facility] E[address]jmzpco[address] [place] [phone]. Bhavani Barragan METAMYELOCYTE # Normal [facility] Comment on above: Performed By: #### C OMID ####[facility] Qujxifzzks5633 [place] [phone]. Bhavani Barragan METAMYELOCYTE % Normal [facility] Comment on above: Performed By: #### C OMID ####[facility] Opihpygvmf[address] [place], [place] [address]Dr. Bhavani Barragan MONOM# 0.94 103/ul Critically high 0.30-0.80 [facility] Comment on above: Performed By: #### C OMID ####[facility] Oozjhbnany[address] [place], [place] [address]Dr. Bhavani Barragan MONOM% 4.0 % Normal 1.7-12.0 [facility] Comment on above: Performed By: #### C OMID ####[facility] [address]qyziliuj[address] [place], [place] [address]Dr. Bhavani Barragan MPV 11.0 fL Normal 9.5-13.5 [facility] Comment on above: Performed By: #### C OMID ####[facility] [address]agyqkwu[address] [place], [place] [address]Dr. Bhavani Barragan MYELOCYTE # Normal [facility] Comment on above: Performed By: #### C OMID ####[facility] Uvslumrcyr[address] [place], [place] [address]Dr. Bhavani Barragan MYELOCYTE % Normal [facility] Comment on above: Performed By: #### C OMID ####[facility] Igzbcvgqqg[address] [place], [place] [address]Dr. Bhavani Barragan NRBC Normal [facility] Comment on above: Performed By: #### C OMID ####[facility] Wlexhugiuf1828 [place], [place] [address]Mp. Bhavani Barragan PLT 198 103/ul Normal 150-450 [facility] Comment on above: Performed By: #### Jany ANNE ####[facility] Xuxstrxgcx7826 [place] [phone]. Bhavani Barragan RBC 4.26 106/ul Normal 4.20-5.40 [facility] Comment on above: Performed By: #### Jany ANNE ####[facility] Arzulqahyi0529 [place] [phone]. Bhavani Barragan RDW 16.3 % Critically high 11.0-15.0 [facility] Comment on above: Performed By: #### Jany ANNE ####[facility] Gpkcxwecxz2585 [place] [phone]. Bhavani Barragan SEG # 19.19 103/ul Critically high 1.40-6.50 [facility] Comment on above: Performed By: #### Jany ANNE ####[facility] Hryejhrhix9596 [place] [phone]. Bhavani Barragan SEG % 82.0 % Critically high 43.0-75.0 [facility] Comment on above: Performed By: #### Jany ANNE ####[facility] Zhmkhjglad76[address] [place] [phone]. Bhavani Barragan WBC 23.4 103/ul Critically high 4.0-11.0 [facility] Comment on above: Performed By: #### Jany ANNE ####[facility] Txxeizognp39[address] [place] [phone]. Bhavani Barragan CT LSPINE WO CONon 3 CT LSPINE WO CON Normal [facility] CT PELVIS WO CONon 3 CT PELVIS WO CON Normal [facility] CULTURE BLOODon 02-06-2023 Microscopic examination of blood, culture Culture Observations: NO GROWTH AT 5 DAYS. Normal [facility] Comment on above: Performed By: #### B LDCX2 ####[facility] Ksvymfkwue26[address] [place] [address]Dr. Bhavani Barragan Performed By: #### B LDCX1 ####[facility] Rzwfcvgotq6599 [place] [address]Dr. Bhavani Barragan Covid-19 PCR (CVDTB)on 01-17 SARS-CoV-2 (COVID-19) RNA MATTHEW+probe Ql (Unsp spec) Not detected Normal NOT DETECTED [facility] Comment on above: Result Comment: When diagnostic testing is negative, the possibility of a false negative should be considered inthe context of a patient's recent exposures and the presence of clinical signs and symptomsconsistent with SARS-CoV-2.This test is not yet approved or cleared by the [place] FDA. When there are no FDA-approved or cleared tests available, and other criteria are met, FDA can make tests available under an emergency access mechanism called an Emergency Use Authorization (EUA). The EUA for this test is supported by the [place] of Health and Human Service's declaration that circumstances exist to justify the emergency use of in vitro diagnostics for the detection and/or diagnosis of the virus that causes COVID-19. This EUA will remain in effect for the duration of the COVID-19 declaration justifying emergency of IVDs, unless it is terminated or revoked by the FDA (after which the test may no longer be used). Performed By: #### C VDTBH ####[facility] Bhjclsecqo[address] [place], [place] [address]Dr. Bhavani Barragan ER URINE PROFILEon 3 Bilirubin Ql (U) Negative Normal NEGATIVE [facility] Comment on above: Performed By: #### U MICRO, ERUR ####[facility] Ykyyqlgoob[address] [place], [place] [address]Dr. Bhavani Barragan Clarity (U) SL CLOUDY Abnormal CLEAR [facility] Comment on above: Performed By: #### U MICRO, ERUR ####[facility] Jbrmgabnoh196[address] [place], [place] [address]Dr. Bhavani Barragan Color (U) LT. YELLOW Normal YELLOW [facility] Comment on above: Performed By: #### U MICRO, ERUR ####[facility] Yubraexuvb[address] [place], [place] [address]Dr. Bhavani Barragan ERUAHD A micrscopic examination will be performed if indicated. Normal [facility] Comment on above: Performed By: #### U MICRO, ERUR ####[facility] Ktbewjzytr8[address] [place] [address]Dr. Bhavani Barragan Glucose Ql (U) Negative Normal NEGATIVE [facility] Comment on above: Performed By: #### U MICRO, ERUR ####[facility] Devqvwnhsc630[address] [place], [place] [address]Dr. Bhavani Barragan Hemoglobin Ql (U) TRACE-INTACT Abnormal NEGATIVE [facility] Comment on above: Performed By: #### U MICRO, ERUR ####[facility] Zudapsmgpq79[address] [place], [place] [address]Dr. Bhavani Barragan Ketones Ql (U) Negative Normal NEGATIVE [facility] Comment on above: Performed By: #### U MICRO, ERUR ####[facility] Jmxxogntaa[address] [place], [place] [address]Dr. Bhavani Barragan LEUKOCYTES SMALL Abnormal NEGATIVE [facility] Comment on above: Performed By: #### U MICRO, ERUR ####[facility] Wnygpjyhan[address] [place], [place] [address]Dr. Bhavani Barragan Nitrite Ql (U) Positive Abnormal NEGATIVE [facility] Comment on above: Performed By: #### U MICRO, ERUR ####[facility] Ealyvpjohh[address] [place], [place] [address]Dr. Bhavani Barragan pH (U) 6.0 [pH] Normal 5-9 [facility] Comment on above: Performed By: #### U MICRO, ERUR ####[facility] Nprnugroqw[address] [place], [place] [address]Dr. Bhavani Barragan Protein (U) [Mass/Vol] 30 mg/dL Abnormal NEGATIVE/ TRACE [facility] Comment on above: Performed By: #### U MICRO, ERUR ####[facility] Xytxvgnfln[address] [place], [place] [address]Dr. Bhavani Barragan SPEC GRAVITY 1.020 Normal 1.005-<=1.02 5 [facility] Comment on above: Performed By: #### U MICRO, ERUR ####[facility] Tkbcfniamo[address] [place] [address]Dr. Bhavani Barragan UR MICRO IND INDICATED Normal [facility] Comment on above: Performed By: #### U MICRO, ERUR ####[facility] Rgkpgsszcp[address] [place], [place] [address]Dr. Bhavani Barragan Urobilinogen Qn (U) 0.2 {Ridge'U}/dL Normal 0.2 - 1. 0 [facility] Comment on above: Performed By: #### U MICRO, ERUR ####[facility] Uggikopong[address] [place], [place] [address]Dr. Bhavani Barragan LACTATE/LACTIC ACIDon 2022 Lactate [Moles/Vol] 1.5 mmol/L Normal 0.4-2.0 [facility] Comment on above: Performed By: #### L ACT ####[facility] Wulmsmqnip[address] [place], [place] [address]Dr. Bhavani Barragan PROF CHEM 8 (BAS METB)on Anion gap [Moles/Vol] 14.7 mmol/L Normal [facility] Comment on above: Performed By: #### B MP ####[facility] Wlcenorfyd[address] [place], [place] [address]Dr. Bhavani Barragan Calcium [Mass/Vol] 8.2 mg/dL Critically low 8.5-10.1 [facility] Comment on above: Performed By: #### B MP ####[facility] X[address]zqfnvyhf[address] [place], [place] [address]Dr. Bhavani Barragan Chloride [Moles/Vol] 103 mmol/L Normal 98-107 [facility] Comment on above: Performed By: #### B MP ####[facility] Bjnzczujnz[address] [place], [place] [address]Dr. Bhavani Barragan CO2 [Moles/Vol] 22.4 mmol/L Normal 21.0-32.0 [facility] Comment on above: Performed By: #### B MP ####[facility] Hdesqlzamx135[address] [place], [place] [address]Dr. Bhavani Barragan Creatinine [Mass/Vol] 1.39 mg/dL Critically high 0.55-1.02 [facility] Comment on above: Performed By: #### B MP ####[facility] Uqmrsntxsz5[address] [place] [address]Dr. Bhavani Barragan EGFR-AF [place] 44 mL/min/1.73m2 Critically low >=60 [facility] Comment on above: Performed By: #### B MP ####[facility] Rttyazaebw02[address] [place] [phone]. Bhavani Barragan EGFR-NON AF [place] 36 mL/min/1.73m2 Critically low >=60 [facility] Comment on above: Performed By: #### B MP ####[facility] Liabbpwoks[address] [place] [address]Dr. Bhavani Barragan Glucose [Mass/Vol] 161 mg/dL Critically high 74-106 [facility] Comment on above: Performed By: #### B MP ####[facility] Upwdexkdtw9[address] [place] [address]Dr. Bhavani Barragan Potassium [Moles/Vol] 4.1 mmol/L Normal 3.5-5.1 [facility] Comment on above: Performed By: #### B MP ####[facility] Envrqkvvbm[address] [place], [place] [address]Dr. Bhavani Barragan Sodium [Moles/Vol] 136 mmol/L Normal 136-145 [facility] Comment on above: Performed By: #### B MP ####[facility] Kjiblkgmxq14[address] [place] [address]Dr. Bhavani Barragan Urea nitrogen [Mass/Vol] 23.0 mg/dL Critically high 7.0-18.0 [facility] Comment on above: Performed By: #### B MP ####[facility] Hjfsripvhr[address] [place], [place] [address]Dr. Bhavani Barragan Urea nitrogen/Creatinine [Mass ratio] 16.5 mg/mg Normal [facility] Comment on above: Performed By: #### B MP ####[facility] Llghqgqstn3020 [place] [phone]. Bhavani Barragan PROTIMEon 02-06-2023 INR Coag (PPP) [Relative time] 1.12 {INR} Normal [facility] Comment on above: Performed By: #### P TT, PT ####[facility] Ztwcsgnpdb[address] [place], [place] [address]Dr. Bhavani Barragan INR GUIDELINES SEE BELOW Normal [facility] Comment on above: Result Comment: WALKER RED INR: 2.0 - 3.0 CONDITIONS NOT LISTED BELOW 2.5 - 3.5 FOR PROSTHETIC HEART VALVE REPLACEMENT 2.5 - 3.5 RECURRENT THROMBOSIS Performed By: #### P TT, PT ####[facility] Dikppyokgb415[address] [place], [place] [address]Dr. Bhavani Barragan PT Coag (PPP) [Time] 11.8 s Critically high 9.0-11.6 [facility] Comment on above: Performed By: #### P TT, PT ####[facility] [address]fhtwafp[address] [place], [place] [address]Dr. Bhavani Barragan PTTon 02-06-2023 aPTT Coag (Bld) [Time] 23.8 s Normal 22.3-36.2 [facility] Comment on above: Performed By: #### P TT, PT ####[facility] Fhekkxcask[address] [place], [place] [address]Dr. Bhavani Barragan URINE MICROSCOPIC ONLYon BACTERIA LARGE Abnormal NONE SEEN [facility] Comment on above: Performed By: #### U MICRO, ERUR ####[facility] [address]oymnvaxj[address] [place], [place] [address]Dr. Bhavani Barragan Bacteria identified Cx Nom (U) INDICATED Normal [facility] Comment on above: Performed By: #### U MICRO, ERUR ####[facility] Aubynkbogc[address] [place], [place] [address]Dr. Bhavani Barragan CAST NONE SEEN Normal NONE SEEN [facility] Comment on above: Performed By: #### U MICRO, ERUR ####[facility] Adpeqnnhbt[address] [place], [place] [address]Dr. Bhavani Barragan Crystals LM Nom (Urine sed) NONE SEEN Normal NONE SEEN [facility] Comment on above: Performed By: #### U MICRO, ERUR ####[facility] Xntordyhwv6414 [place] [phone]. Bhavani Barragan Epithelial cells LM Ql (Urine sed) RARE Normal NONE SEEN /RARE [facility] Comment on above: Performed By: #### U MICRO, ERUR ####[facility] Zddpetiunr0449 [place], [place] [address]Ja. Bhavani Barragan MUCOUS NONE SEEN Normal NONE SEEN [facility] Comment on above: Performed By: #### U MICRO, ERUR ####[facility] Huatikickv[address] [place] [phone]. Bhavani Barragan RBC 0-2 Normal 0-2 [facility] Comment on above: Performed By: #### U MICRO, ERUR ####[facility] J[address]qjdekmv[address] [place] [address]Dr. Bhavani Barragan WBC 10-20 Abnormal NONE SEEN [facility] Comment on above: Performed By: #### U MICRO, ERUR ####[facility] Bwjobnorar5[address] [place] [phone]. Bhavani Barragan XR CHEST 1 Von 02-06-2023 XR CHEST 1 V Normal [facility] XR FEMUR RTon 02-06-2023 XR FEMUR RT Normal [facility] Orders Onlyon 01-22-2023 Orders Only [id number] Jennifer Tafoya 1940 F Date Provider [facility] Family History Problem Relation Age of Onset Diabetes Sister Diabetes Brother Diabetes Maternal Grandfather Family Status - Relation Status Age at Sister Brother Maternal Grandfather Normal [facility] CBC AUTO DIFFon 01-18-2023 BASO # 0.1 103/ul Normal 0.0-0.1 [facility] Comment on above: Performed By: #### C BC ####[facility] [address]qwxytpcic[address] [place] [address]Dr. Bhavani Barragan Basophils/100 WBC (Bld) 0.7 % Normal 0.2-2.0 [facility] Comment on above: Performed By: #### C BC ####[facility] [address]smrroei[address] [place] [address]Dr. Bhavani Barragan EO # 0.0 103/ul Normal 0.0-0.7 [facility] Comment on above: Performed By: #### C BC ####[facility] Xzslxbshig[address] [place] [address]Dr. Bhavani Barragan Eosinophils/100 WBC (Bld) 0.2 % Critically low 0.9-7.0 [facility] Comment on above: Performed By: #### C BC ####[facility] [address] [place], [place] [address]Dr. Bhavani Barragan Erythrocyte distribution width (RBC) [Ratio] 16.4 % Critically high 11.0-15.0 [facility] Comment on above: Performed By: #### C BC ####[facility] Hun[address]facon[address] [place], [place] [address]Dr. Bhavani Barragan Hematocrit (Bld) [Volume fraction] 41.5 % Normal 36.0-48.0 [facility] Comment on above: Performed By: #### C BC ####[facility] [address] [place], [place] [address]Dr. Bhavani Barragan Hemoglobin (Bld) [Mass/Vol] 13.0 g/dL Normal 12.0-16.0 [facility] Comment on above: Performed By: #### C BC ####[facility] [address] [place], [place] [address]Dr. Bhavani Barragan IG # 0.24 10e3/ul Critically high 0.00-0.03 The [facility] Comment on above: Performed By: #### C BC ####[facility] [address] [place], [place] [address]Dr. Bhavani Barragan IG % 1.3 % Critically high 0.0-0.5 The [facility] Comment on above: Performed By: #### C BC ####[facility] [address] [place], [place] [address]Dr. Bhavani Barragan LYMPH # 1.5 103/ul Normal 1.2-3.8 [facility] Comment on above: Performed By: #### C BC ####[facility] [address] [place] [id number]. Bhavani Barragan Lymphocytes/100 WBC (Bld) 8.1 % Critically low 20.5-60.0 [facility] Comment on above: Performed By: #### C BC ####[facility] [address] [place] [id number]. Jayceeroxi Barragan MANUAL DIFF REQ NO Normal The [facility] Comment on above: Performed By: #### C BC ####[facility] [address] [place] [id number]. Bhavani Laurel MCH (RBC) [Entitic mass] 28.9 pg Normal 26.7-34.0 [facility] Comment on above: Performed By: #### C BC ####[facility] [address] [place] [address]Dr. Bhavani Laurel MCHC (RBC) [Mass/Vol] 31.3 g/dL Normal 29.9-35.2 [facility] Comment on above: Performed By: #### C BC ####[facility] [address] [place] [address]Dr. Bhavani Laurel MCV (RBC) [Entitic vol] 92.2 fL Normal 81.0-99.0 [facility] Comment on above: Performed By: #### C BC ####[facility] [address] [place] [address]Dr. Bhavani Barragan MONO # 0.2 103/ul Critically low 0.3-0.8 The [facility] Comment on above: Performed By: #### C BC ####[facility] [address] [place] [address]Dr. Jayceeroxi Barragan Monocytes/100 WBC (Bld) 1.3 % Critically low 1.7-12.0 [facility] Comment on above: Performed By: #### C BC ####[facility] [address]pcxol[address] [place] [address]Dr. Bhavani Barragan NEUT # 16.0 103/ul Critically high 1.4-6.5 The [facility] Comment on above: Performed By: #### C BC ####[facility] [address] [place] [address]Dr. Bhavani Barragan Neutrophils/100 WBC (Bld) 88.4 % Critically high 43.0-75.0 [facility] Comment on above: Performed By: #### C BC ####[facility] [address] [place] [address]Dr. Bhavani Barragan Platelet mean volume (Bld) [Entitic vol] 12.1 fL Normal 9.5-13.5 [facility] Comment on above: Performed By: #### C BC ####[facility] [address]up[address] [place] [address]Dr. Bhavani Barragan PLT 170 103/ul Normal 150-450 [facility] Comment on above: Performed By: #### C BC ####[facility] [address]yt[address] [place] [address]Dr. Bhavani Barragan RBC 4.50 106/ul Normal 4.20-5.40 [facility] Comment on above: Performed By: #### C BC ####[facility] [address]ts[address] [place] [address]Dr. Bhavani Barragan WBC 18.1 103/ul Critically high 4.0-11.0 The [facility] Comment on above: Performed By: #### C BC ####[facility] [address] [place] [address]Dr. Bhavani Barragan ECHOCARDIO M/2D COMPLETEon 0 01-18-2023 ECHOCARDIO M/2D COMPLETE Normal [facility] Office Visiton 12-25-2022 Follow-up visit [id number] Jennifer Tafoya 1940 F Date Provider Department Center 12/25/2022 TRACI L[facility]A [facility] Family History Problem Relation Age of Onset Diabetes Sister Diabetes Brother Diabetes Maternal Grandfather Family Status - Relation Status Age at Sister Brother Maternal Grandfather Level of Service:10247 [place] OFFICE/OUTPATIENT ESTABLISHED MOD MDM 30-39 MIN Reason for Visit and Comments: Atrial Fibrillation [80] Normal [facility] Endoscopy Reporton 2 Endoscopy Report MR#: [id number] [facility] Pt. Name: María Elena Tafoya Surgery Date: 06/26/2022 Room #: 0C Date of : 1940 PROCEDURE NOTE ATTENDING: You Barillas M.D. PROCEDURE: ERCP. ANESTHESIA: General anesthesia. INDICATIONS: This is an 81-year-old female patient who underwent ERCP 2 months ago for CBD stone, which were removed. Post ERCP, she developed post sphincterotomy bleeding for which she had another ERCP and placement of metallic biliary stent for tamponading with complete hemostasis. The patient presented today for repeat ERCP and stent removal. DESCRIPTION OF PROCEDURE: Informed consent was obtained from the patient after explaining the procedure, benefits, risks, and alternatives. Procedure risks including infection, bleeding, perforation, aspiration, oversedation, anesthesia with complications. The patient was positioned in left lateral position. Anesthesia medications were given by anesthesia team in the room. The patient was under general anesthesia. Side-viewing Olympus video duodenoscope was introduced from the patient's oral cavity into the esophagus, then the first and second part of duodenum with no difficulties. Examination of the major papilla showed no evidence of a stent seen at the major papilla. Examination with fluoroscopy also showed no residual stent seen, so it appeared that the stent has completely migrated distally and is no longer in the biliary tree. Rx-44 sphincterotome loaded by 0.035-inch guidewire was used for biliary cannulation. The biliary cannulation was achieved with no difficulties. Contrast was injected and it showed slightly dilated common bile duct, but no evidence of stones. Injecting below, balloon retrieval catheter 12-15 mm was used to sweep the common bile duct with no stones seen in sweeping. Final clearance of the common bile duct was achieved. The scope was then withdrawn out of the patient. The patient tolerated the procedure well with no acute complications. FINDINGS: 1. Evidence of previous sphincterotomy was seen. 2. Complete spontaneous distal migration of the metallic stent from the biliary tree. The stent was no longer seen in the biliary tree. RECOMMENDATIONS: 1. Followup as needed. 2. We will get abdominal x-ray to see if the stent is still retained somewhere else in the abdomen and follow up as needed. Electronically Signed by: You Barillas M.D. 06/28/2022 02:37 P You Barillas M.D. Date Dict: 06/26/2022/11:02 Kate/You Barillas M.D. Date Trans: 06/27/2022 03:26 A/erik [id number] cc: Bennie Albright M.D. [address], [place] [address] [facility] ABDOMEN 1 on 06-26-2022 ABDOMEN 1 [facility] Department of Radiology [address] [place] [address] ======== Patient Name: MARÍA ELENA TAFOYA : 1940 Sex: F Age: Race: White Pt. Location: OUTP Patient Status: O Ordered Date: 06/26/2022 11:10:00 AM Completed Date: 06/26/2022 11:41 AM Requesting Provider: YOU BARILLAS Attending Provider: YOU BARILLAS Report Copy To: Signs & Symptoms: Check Stent Position, NO History: Comments: Check Stent Position, NO Exam: ABDOMEN 1 ======== ABDOMEN 1 06/26/2022 11:41 AM CLINICAL INDICATIONS: Check Stent Position, NO TECHNOLOGIST COMMENTS: Check Stent Position, QUESTION FOR THE RADIOLOGIST: Check Stent Position, NO PROTOCOL: AP(PA) view was obtained. COMPARISON: None FINDINGS: There is a small amount contrast in the small bowel and a small amount of gas within the biliary system felt to be secondary to the recently performed ERCP. No definite stent is identified. The bowel gas pattern is nonspecific. IMPRESSION: Residual contrast material in the small bowel and gas within the biliary system was performed ERCP. Otherwise normal abdomen. No definite stent is identified. Electronically signed: Roge Bah. Transcribed by: [email or web address], User Resident: Electronically Signed by: ROGE BAH @ 06/26/2022 11:52 AM Normal [facility] Comment on above: Order Comment: Check Stent Position, NO ERCPon 06-26-2022 ERCP [facility] Department of Radiology [address] [place] [id number] ======== Patient Name: MARÍA ELENA TAFOYA : 1940 Sex: F Age: Race: White Pt. Location: [facility] Patient Status: Ordered Date: 06/26/2022 5:00:00 AM Completed Date: 06/26/2022 10:56 AM Requesting Provider: ELIU BRAUN Attending Provider: Report Copy To: Signs & Symptoms: K80.50 Calculus of bile duct w/o cholangitis or cholecyst w/o obst I10 History: [place] Comments: , Appointment Date: 06/26/2022 , Appointment Time: 1014 , Appointment Date: 06/26/2022 , Appointment Time: 1014 , , , Ordering Provider - ELIU BRAUN MD , Exam: ERCP ======== ERCP 06/26/2022 10:56 AM CLINICAL INDICATIONS: K80.50 Calculus of bile duct w/o cholangitis or cholecyst w/o obst I10 TECH COMMENTS:ERCP with Dr Barillas. Fluoro time 1 minute 27 seconds 26.88 mGy 9 images sent COMPARISON: None. FINDINGS: 11 images are submitted for review from ERCP performed by the GI lab. Endoscope is passed in an antegrade fashion, and the tip of the endoscope lies in the second portion of the duodenum. The common bile duct was cannulated and contrast injected in a retrograde direction, opacifying the biliary tree. . Fluoroscopy Time: 88 seconds. IMPRESSION: Intraoperative imaging during ERCP. Refer to final operative report. Please see the GI procedure note for further details. Electronically signed: FARSHAD SILVA. Transcribed by: [email or web address], User Resident: Electronically Signed by: FARSHAD SILVA @ 06/27/2022 09:15 AM Normal [facility] Comment on above: Order Comment: , [place] ointment Date: 06/26/2022 , Appointment Time: 1015 , Appointment Date: 06/26/2022 , Appointment Time: 1015 , , , Ordering Provider - ELIU BRAUN MD , POC GLUCOSE LABon 06-26-2022 Glucose [Mass/Vol] 121 mg/dL High 70-100 [facility] Comment on above: Performed By: #### 8 [id number] #### [facility] [address] [place] [address], [facility] Glucose [Mass/Vol] 116 mg/dL High 70-100 [facility] Comment on above: Performed By: #### 8 5499 #### [facility] [address] [place] [address], [facility] POC SARS COV2 IDon 2 SARS-CoV-2 (COVID-19) RNA MATTHEW+probe Ql (Unsp spec) Negative Normal NEGATIVE [facility] Comment on above: Result Comment: ID N OW COVID-19 assay performed on the ID NOW Instrument is a rapid molecular in vitro diagnostic test utilizing an isothermal nucleic acid amplification technology intended for the qualitative detection of nucleic acid from the SARS-CoV-2 virus in direct anterior nasal (nasal), nasopharyngeal or throat swabs from individuals who are suspected of COVID-19 by their healthcare provider within the first seven days of the onset of symptoms. Testing is limited to laboratories certified under the Clinical Laboratory Improvement Amendments of 1988 (CLIA), 42 U.S.C. ???263a,that meet the requirements to perform high, moderate, or waived complexity tests. The ID NOW COVID-19 assay is also authorized for use at the Point of Care (POC), i.e., in patient care settings operating under a CLIA Certificate of Waiver, Certificate of Compliance, or Certificate of Accreditation. Performed By: #### 8 [id number] #### [facility] [address] [place] [address], [facility] XR MODIFIED BARIUM SWALLOWon 05-08-2022 XR MODIFIED BARIUM SWALLOW Normal [facility] POC GLUCOSE LABon 04-16-2022 Glucose [Mass/Vol] 103 mg/dL High 70-100 [facility] Comment on above: Performed By: #### 8 5499 ####[facility] [place] [address], [facility] POC GLUCOSE LABon 04-15-2022 Glucose [Mass/Vol] 112 mg/dL High 70-100 [facility] Comment on above: Performed By: #### 8 5499 #### [facility] [address] [place] [address], [facility] Glucose [Mass/Vol] 131 mg/dL High 70-100 The [facility] Comment on above: Performed By: #### 8 [id number] #### [facility] [address] [place] [address], [facility] Glucose [Mass/Vol] 122 mg/dL High 70-100 [facility] Comment on above: Performed By: #### 5 0608 #### [facility] [address] [place] [address], [place] Glucose [Mass/Vol] 118 mg/dL High 70-100 [facility] Comment on above: Performed By: #### 8 5499 #### [facility] [address] [place] [address], [place] BASIC METABOLIC PANELon 05-2 Calcium [Mass/Vol] 8.1 mg/dL Low 8.6-10.3 [facility] Comment on above: Order Comment: No: D o not add to previous draw Performed By: #### 2 2706 #### [facility] [address] [place] [address], [place] Chloride [Moles/Vol] 104 mmol/L Normal 98-107 [facility] Comment on above: Order Comment: No: D o not add to previous draw Performed By: #### 2 2706 #### [facility] [address] [place] [address], [place] CO2 [Moles/Vol] 27 mmol/L Normal 21-31 The [facility] Comment on above: Order Comment: No: D o not add to previous draw Performed By: #### 2 2706 #### [facility] [address] [place] [address], [place] Creatinine [Mass/Vol] 1.34 mg/dL High 0.60-1.20 [facility] Comment on above: Order Comment: No: D o not add to previous draw Performed By: #### 2 2706 #### [facility] [address] [place] [address], [place] eGFR- 46 ml/min/1.73sq m Abnormal >60 The [facility] Comment on above: Order Comment: No: D o not add to previous draw Result Comment: Calc ulation may not be valid for patients over 70 years Performed By: #### 2 2706 #### [facility] [address] [place] [address], [facility] eGFR- non- 38 ml/min/1.73sq m Abnormal >60 [facility] Comment on above: Order Comment: No: D o not add to previous draw Result Comment: Calc ulation may not be valid for patients over 70 years Performed By: #### 2 2706 #### [facility] [address] [place] [address], [facility] Glucose [Mass/Vol] 106 mg/dL High 70-100 The [facility] Comment on above: Order Comment: No: D o not add to previous draw Performed By: #### 2 2706 #### [facility] [address] [place] [address], [facility] Potassium [Moles/Vol] 4.9 mmol/L Normal 3.5-5.1 [facility] Comment on above: Order Comment: No: D o not add to previous draw Performed By: #### 2 2706 #### [facility] [address] [place] [address], [place] Sodium [Moles/Vol] 135 mmol/L Low 136-145 [facility] Comment on above: Order Comment: No: D o not add to previous draw Performed By: #### 2 2706 #### [facility] [address] [place] [address], [facility] Urea nitrogen [Mass/Vol] 22 mg/dL Normal 7-25 [facility] Comment on above: Order Comment: No: D o not add to previous draw Performed By: #### 2 2706 #### [facility] [address] [place] [address], [facility] CBC COMPLETE BLOOD COUNTon 0 - Erythrocyte distribution width (RBC) [Ratio] 20.9 % High 11.5-15.0 [facility] Comment on above: Order Comment: No: D o not add to previous draw Performed By: #### 8 [id number] #### [facility] [address] [place] [address], [facility] Hematocrit (Bld) [Volume fraction] 27.5 % Low 36.0-45.0 [facility] Comment on above: Order Comment: No: D o not add to previous draw Performed By: #### 8 [id number] #### [facility] [address] [place] [address], [facility] Hemoglobin (Bld) [Mass/Vol] 8.5 g/dL Low 12.0-15.0 [facility] Comment on above: Order Comment: No: D o not add to previous draw Performed By: #### 8 5499 #### [facility] [address] [place] [address], [facility] IMM PLATELET FRAC 10.2 % High 0.8-6.3 The [facility] Comment on above: Order Comment: No: D o not add to previous draw Performed By: #### 8 5499 #### [facility] [address] [place] [address], [facility] MCH (RBC) [Entitic mass] 31.1 pg Normal 27.0-33.0 [facility] Comment on above: Order Comment: No: D o not add to previous draw Performed By: #### 8 [id number] #### [facility] [address] [place] [address], [facility] MCHC (RBC) [Mass/Vol] 30.9 g/dL Low 32.0-35.0 [facility] Comment on above: Order Comment: No: D o not add to previous draw Performed By: #### 8 [id number] #### [facility] [address] [place] [address], [facility] MCV (RBC) [Entitic vol] 100.7 fL High 82.0-98.0 [facility] Comment on above: Order Comment: No: D o not add to previous draw Performed By: #### 8 [id number] #### [facility] [address] [place] [address], [facility] Nucleated RBC/100 WBC (Bld) [Ratio] 0 % Normal 0-0 [facility] Comment on above: Order Comment: No: D o not add to previous draw Performed By: #### 8 5499 #### [facility] [address] [place] [address], [place] PLAT ESTIMATE Normal Normal The [facility] Comment on above: Order Comment: No: D o not add to previous draw Result Comment: EDTA smear shows platelet clumping, see platelet estimate Performed By: #### 8 5499 #### [facility] [address] [place] [address], [facility] RBC (Bld) [#/Vol] 2.73 10*6/uL Low 3.80-5.00 [facility] Comment on above: Order Comment: No: D o not add to previous draw Performed By: #### 8 5499 #### [facility] [address] [place] [address], [facility] WBC (Bld) [#/Vol] 19.62 10*3/uL High 4.00-10.60 [facility] Comment on above: Order Comment: No: D o not add to previous draw Performed By: #### 8 5499 #### [facility] [address] [place] [address], [facility] MAGNESIUM BLOODon 04-14-2022 Magnesium [Mass/Vol] 1.9 mg/dL Normal 1.9-2.7 [facility] Comment on above: Order Comment: No: D o not add to previous draw Performed By: #### 2 3306 #### [facility] [address] [place] [address], [facility] POC GLUCOSE LABon 04-14-2022 Glucose [Mass/Vol] 117 mg/dL High 70-100 The [facility] Comment on above: Performed By: #### 3 0313 #### [facility] [address] [place] [address], [place] Glucose [Mass/Vol] 119 mg/dL High 70-100 [facility] Comment on above: Performed By: #### 8 5499 #### [facility] [address] [place] [address], [place] Glucose [Mass/Vol] 113 mg/dL High 70-100 [facility] Comment on above: Performed By: #### 8 5499 #### [facility] [address] [place] [address], [place] Glucose [Mass/Vol] 112 mg/dL High 70-100 [facility] Comment on above: Performed By: #### 8 5499 #### [facility] [address] [place] [address], [place] BASIC METABOLIC PANELon 05-2 Calcium [Mass/Vol] 8.4 mg/dL Low 8.6-10.3 [facility] Comment on above: Order Comment: Bleed , altereed mental status Performed By: #### 4 1000, , 78513 ####[facility] [place] [address], [place] Chloride [Moles/Vol] 105 mmol/L Normal 98-107 [facility] Comment on above: Order Comment: Bleed , altereed mental status Performed By: #### 4 999, , 18939 ####[facility] [place] [address], [place] CO2 [Moles/Vol] 24 mmol/L Normal 21-31 The [facility] Comment on above: Order Comment: Bleed , altereed mental status Performed By: #### 4 1000, , 69745 ####[facility] [place] [address], [place] Creatinine [Mass/Vol] 1.31 mg/dL High 0.60-1.20 [facility] Comment on above: Order Comment: Bleed , altereed mental status Performed By: #### 4 1000, , 26243 ####[facility] eGFR- 47 ml/min/1.73sq m Abnormal >60 The [facility] Comment on above: Order Comment: Bleed , altereed mental status Result Comment: Calc ulation may not be valid for patients over 70 years Performed By: #### 4 1000, , 32890 ####[facility] eGFR- non- 39 ml/min/1.73sq m Abnormal >60 [facility] Comment on above: Order Comment: Bleed , altereed mental status Result Comment: Calc ulation may not be valid for patients over 70 years Performed By: #### 4 1000, , 61398 ####[facility] [place] [address], [facility] Glucose [Mass/Vol] 85 mg/dL Normal 70-100 The [facility] Comment on above: Order Comment: Bleed , altereed mental status Performed By: #### 4 1000, , 78799 ####[facility] [place] [address], [facility] Potassium [Moles/Vol] 5.2 mmol/L High 3.5-5.1 [facility] Comment on above: Order Comment: Bleed , altereed mental status Performed By: #### 4 1000, , 56618 ####[facility] [place] [address], [place] Sodium [Moles/Vol] 137 mmol/L Normal 136-145 [facility] Comment on above: Order Comment: Bleed , altereed mental status Performed By: #### 4 1000, , 42266 ####[facility] [place] [address], [facility] Urea nitrogen [Mass/Vol] 21 mg/dL Normal 7-25 [facility] Comment on above: Order Comment: Bleed , altereed mental status Performed By: #### 4 1000, [address]7230, 31210 ####[facility] [place] [address], [facility] CBC COMPLETE BLOOD COUNTon 04-13-2022 Erythrocyte distribution width (RBC) [Ratio] 20.4 % High 11.5-15.0 [facility] Comment on above: Order Comment: No: D o not add to previous draw Performed By: #### 8 [id number] #### [facility] [address] [place] [address], [facility] Hematocrit (Bld) [Volume fraction] 29.2 % Low 36.0-45.0 [facility] Comment on above: Order Comment: No: D o not add to previous draw Performed By: #### 8 5499 #### [facility] [address] [place] [address], [facility] Hemoglobin (Bld) [Mass/Vol] 9.0 g/dL Low 12.0-15.0 [facility] Comment on above: Order Comment: No: D o not add to previous draw Performed By: #### 8 5499 #### [facility] [address] [place] [address], [facility] MCH (RBC) [Entitic mass] 31.0 pg Normal 27.0-33.0 [facility] Comment on above: Order Comment: No: D o not add to previous draw Performed By: #### 8 [id number] #### [facility] [address] [place] [address], [facility] MCHC (RBC) [Mass/Vol] 30.8 g/dL Low 32.0-35.0 [facility] Comment on above: Order Comment: No: D o not add to previous draw Performed By: #### 8 [id number] #### [facility] [address] [place] [address], [facility] MCV (RBC) [Entitic vol] 100.7 fL High 82.0-98.0 [facility] Comment on above: Order Comment: No: D o not add to previous draw Performed By: #### 8 [id number] #### [facility] [address] [place] [address], [facility] Nucleated RBC/100 WBC (Bld) [Ratio] 0 % Normal 0-0 [facility] Comment on above: Order Comment: No: D o not add to previous draw Performed By: #### 8 [id number] #### [facility] [address] [facility] [place] [address], [facility] PLAT CNT 148 10*3/uL Low 150-400 [facility] Comment on above: Order Comment: No: D o not add to previous draw Performed By: #### 8 [id number] #### [facility] [address] [facility] [place] [address], [facility] RBC (Bld) [#/Vol] 2.90 10*6/uL Low 3.80-5.00 [facility] Comment on above: Order Comment: No: D o not add to previous draw Performed By: #### 8 [id number] #### [facility] [address] [place] [address], [facility] WBC (Bld) [#/Vol] 22.15 10*3/uL High 4.00-10.60 [facility] Comment on above: Order Comment: No: D o not add to previous draw Performed By: #### 8 [id number] #### [facility] [address] [place] [id number], [facility] MAGNESIUM BLOODon 04-13-2022 Magnesium [Mass/Vol] 1.7 mg/dL Low 1.9-2.7 [facility] Comment on above: Order Comment: Bleed , altereed mental status Performed By: #### 4 1000, 92808, 34849 ####[facility] [place] [address], [place] PHOSPHORUS BLOODon Phosphate [Mass/Vol] 4.7 mg/dL Normal 2.5-5.0 [facility] Comment on above: Order Comment: Bleed , altereed mental status Performed By: #### 4 1000, 17914, 28889 ####[facility] [place] [address], [place] POC GLUCOSE LABon 04-13-2022 Glucose [Mass/Vol] 119 mg/dL High 70-100 [facility] Comment on above: Performed By: #### 8 5499 #### [facility] [address] [place] [address], [place] Glucose [Mass/Vol] 116 mg/dL High 70-100 [facility] Comment on above: Performed By: #### 8 5499 #### [facility] [address] [place] [address], [place] Glucose [Mass/Vol] 129 mg/dL High 70-100 [facility] Comment on above: Performed By: #### 8 5499 #### [facility] [address] [place] [address], [place] Glucose [Mass/Vol] 109 mg/dL High 70-100 [facility] Comment on above: Performed By: #### 8 5499 ####[facility] [place] [address], [place] POTASSIUM BLOODon 04-13-2022 Potassium [Moles/Vol] 4.7 mmol/L Normal 3.5-5.1 [facility] Comment on above: Order Comment: No: D o not add to previous draw Performed By: #### 2 2706 #### [facility] [address] [place] [address], [place] BASIC METABOLIC PANELon 05- Calcium [Mass/Vol] 8.5 mg/dL Low 8.6-10.3 [facility] Comment on above: Order Comment: Bleed , altereed mental status Performed By: #### 1 0, 34282, 24775 ####[facility] [place] [address], [facility] Chloride [Moles/Vol] 106 mmol/L Normal 98-107 [facility] Comment on above: Order Comment: Bleed , altereed mental status Performed By: #### 1 0, 51986, 70490 ####[facility] [place] [address], [facility] CO2 [Moles/Vol] 24 mmol/L Normal 21-31 [facility] Comment on above: Order Comment: Bleed , altereed mental status Performed By: #### 1 0, , 51134 ####[facility] [place] [address], [facility] Creatinine [Mass/Vol] 1.34 mg/dL High 0.60-1.20 [facility] Comment on above: Order Comment: Bleed , altereed mental status Performed By: #### 1 0, 56315, 86542 ####[facility] eGFR- 46 ml/min/1.73sq m Abnormal >60 [facility] Comment on above: Order Comment: Bleed , altereed mental status Result Comment: Calc ulation may not be valid for patients over 70 years Performed By: #### 1 0070, 50883, 38701 ####[facility] eGFR- non- 38 ml/min/1.73sq m Abnormal >60 [facility] Comment on above: Order Comment: Bleed , altereed mental status Result Comment: Calc ulation may not be valid for patients over 70 years Performed By: #### 1 0, 44089, 09628 ####[facility] [facility] [id number], [facility] Glucose [Mass/Vol] 83 mg/dL Normal 70-100 [facility] Comment on above: Order Comment: Bleed , altereed mental status Performed By: #### 1 0, 97882, 52692 ####[facility] [facility].[place] [address], [facility] Potassium [Moles/Vol] 4.5 mmol/L Normal 3.5-5.1 [facility] Comment on above: Order Comment: Bleed , altereed mental status Performed By: #### 1 0, 35911, 73961 ####[facility] [facility] [address], [facility] Sodium [Moles/Vol] 137 mmol/L Normal 136-145 [facility] Comment on above: Order Comment: Bleed , altereed mental status Performed By: #### 1 0, 74357, 60822 ####[facility] [place] [address], [facility] Urea nitrogen [Mass/Vol] 25 mg/dL Normal 7-25 [facility] Comment on above: Order Comment: Bleed , altereed mental status Performed By: #### 1 0, 74426, 23499 ####[facility] [place] [address], [facility] CBC COMPLETE BLOOD COUNTon 0 - Erythrocyte distribution width (RBC) [Ratio] 19.9 % High 11.5-15.0 [facility] Comment on above: Order Comment: No: D o not add to previous draw Performed By: #### 8 5499 #### [facility] [address] [place] [address], [facility] Hematocrit (Bld) [Volume fraction] 28.9 % Low 36.0-45.0 [facility] Comment on above: Order Comment: No: D o not add to previous draw Performed By: #### 8 5499 #### [facility] [address] [place] [address], [facility] Hemoglobin (Bld) [Mass/Vol] 8.7 g/dL Low 12.0-15.0 [facility] Comment on above: Order Comment: No: D o not add to previous draw Performed By: #### 8 5499 #### [facility] [address] [place] [address], [facility] MCH (RBC) [Entitic mass] 30.1 pg Normal 27.0-33.0 [facility] Comment on above: Order Comment: No: D o not add to previous draw Performed By: #### 8 5499 #### [facility] [address] [place] [address], [facility] MCHC (RBC) [Mass/Vol] 30.1 g/dL Low 32.0-35.0 [facility] Comment on above: Order Comment: No: D o not add to previous draw Performed By: #### 8 5499 #### [facility] [address] [place] [address], [facility] MCV (RBC) [Entitic vol] 100.0 fL High 82.0-98.0 [facility] Comment on above: Order Comment: No: D o not add to previous draw Performed By: #### 8 5499 #### [facility] [address] [place] [address], [facility] Nucleated RBC/100 WBC (Bld) [Ratio] 0 % Normal 0-0 [facility] Comment on above: Order Comment: No: D o not add to previous draw Performed By: #### 8 5499 #### [facility] [address] [place] [address], [facility] PLAT CNT 186 10*3/uL Normal 150-400 [facility] Comment on above: Order Comment: No: D o not add to previous draw Performed By: #### 8 5499 #### [facility] [address] [place] [address], [facility] RBC (Bld) [#/Vol] 2.89 10*6/uL Low 3.80-5.00 [facility] Comment on above: Order Comment: No: D o not add to previous draw Performed By: #### 8 5499 #### [facility] [address] [place] [address], [place] WBC (Bld) [#/Vol] 21.99 10*3/uL High 4.00-10.60 [facility] Comment on above: Order Comment: No: D o not add to previous draw Performed By: #### 8 5499 #### [facility] [address] [place] [id number], [facility] LIVER BATTERYon 04-12-2022 Albumin [Mass/Vol] 3.0 g/dL Low 3.5-5.7 [facility] Comment on above: Order Comment: Bleed , altereed mental status Performed By: #### 1 0, 40045, 37122 ####[facility] [place] [address], [facility] ALKALINE PHOSPH 87 IU/L Normal 34-104 [facility] Comment on above: Order Comment: Bleed , altereed mental status Performed By: #### 1 0, 90636, 75684 ####[facility] [place] [address], [facility] ALT [Catalytic activity/Vol] 7 U/L Normal 7-52 [facility] Comment on above: Order Comment: Bleed , altereed mental status Performed By: #### 1 0, 04874, 98472 ####[facility] [place] [address], [facility] AST [Catalytic activity/Vol] 11 U/L Low 13-39 [facility] Comment on above: Order Comment: Bleed , altereed mental status Performed By: #### 1 0070, 91481, 95389 ####[facility] Bilirubin [Mass/Vol] 0.8 mg/dL Normal 0.3-1.0 [facility] Comment on above: Order Comment: Bleed , altereed mental status Performed By: #### 1 0070, 32283, 28992 ####[facility] [place] [address], [facility] Bilirubin.direct [Mass/Vol] 0.2 mg/dL Normal 0.0-0.2 [facility] Comment on above: Order Comment: Bleed , altereed mental status Performed By: #### 1 0, 12263, 70483 ####[facility] [place] [address], [facility] Protein [Mass/Vol] 6.0 g/dL Normal 6.0-8.3 [facility] Comment on above: Order Comment: Bleed , altereed mental status Performed By: #### 1 0070, 73275, 06025 ####[facility] MAGNESIUM BLOODon 04-12-2022 Magnesium [Mass/Vol] 1.9 mg/dL Normal 1.9-2.7 [facility] Comment on above: Order Comment: Bleed , altereed mental status Performed By: #### 1 0070, 69748, 62258 ####[facility] [facility] Operative Reporton Operative Report MR#: [id number] [facility] Pt. Name: María Elena Tafoya Room #: CCCI Discharge Date: Birthdate: 1940 OPERATIVE REPORT DATE OF SURGERY: 04/12/2022 SURGEON: Sharla Lizama MD Operative report: Laparoscopic cholecystectomy Location: [facility] main or Preoperative diagnosis: Gallstone pancreatitis Postoperative diagnosis: Gallstone pancreatitis Operation performed: Laparoscopic cholecystectomy Surgeon: Sharla Lizama MD Advanced Solutions Architect: Dillon Thomas MD (resident pgy5) Estimated blood loss: 40 mL Wound classification: Clean contaminated Specimens: Gallbladder for permanent specimen Anesthesia: General anesthesia Local anesthetic: Quarter percent ropivacaine with epinephrine, total 15 mL used for subcutaneous and subfascial infiltration Indication: This is a 81-year-old woman who presented on 04/01/2022 with abdominal pain secondary to gallstone pancreatitis and choledocholithiasis. Patient underwent ERCP on 04/02/2022. Postoperatively patient's pancreatitis recovered without issues and patient was able to tolerate diet without pain. Initially patient was hesitant about cholecystectomy, after discussion about risks and benefits of cholecystectomy patient eventually chose to proceed with surgery. Details of the procedure: The patient was greeted in the preoperative holding area. History and physical and surgical consent was updated. Preoperative antibiotic with cefazolin was given. The patient was brought to the operating suite and placed on the surgical table in a supine position with both arms out. Safety straps and SCDs were applied. General anesthesia was induced without complications. Abdominal surgical site was prepped with chlorhexidine and allowed full 3 minutes to dry. Abdominal surgical site was squared off with sterile surgical towels and laparoscopy drape was placed in usual sterile fashion. Per incision safety timeout was performed. Abdominal entry was performed at right upper quadrant subcostal region midclavicular line using 5 mm Optiview. After abdominal entry the abdomen was insufflated. Entry site was checked for trauma, there were no visceral trauma noted. A 5 mm port was placed at the supraumbilical site. A 12 mm port was placed at the epigastric site. Another 5 mm port was placed at the right subcostal region anterior axillary line. Using an atraumatic wavy grasper the fundus of the gallbladder was grasped and retracted anteriorly and cephalad. The infundibulum of the gallbladder was retracted medially and laterally as the peritoneum over the cholecystic triangle was scored open using monopolar electrocautery. Fibrofatty connective tissue within the cholecystic triangle was taken down using monopolar electrocautery and bluntly using laparoscopic Kitner. The cystic duct was isolated using [place] dissector. The cystic artery was also isolated using [place] dissector. The cystic artery was secured using large Hem-o-gualberto clips, 1 clip proximal and 1 clip distal. The cystic artery was divided using laparoscopic scissors. The cystic duct appeared larger than normal in caliber, however considering the etiology of choledocholithiasis this is expected. The cystic duct was secured using large Hem-o-gualberto clips, 2 clips proximal and 1 clip distal. The cystic duct was divided using laparoscopic scissors. The gallbladder was mobilized off of the gallbladder fossa using monopolar electrocautery. There was 1 posterior cystic artery that we encountered after a significant portion of the gallbladder had been mobilized, the posterior cystic artery was secured using another large Hem-o-gualberto clip. Gallbladder was mobilized off of the gallbladder fossa and placed into the Endo Catch bag. Abdomen was suctioned and irrigated. The gallbladder was removed via the epigastric port site. The ports were removed and abdomen was desufflated. Incision sites were closed using buried interrupted 4-0 Monocryl sutures. Skin glue was applied over the incision sites. The patient was extubated without complications and transferred to the postop recovery suite in stable condition. Complications: None Electronically Signed by: Sharla Lizama MD 04/12/2022 05:25 P Sharla Lizama MD Date Dict: 04/12/2022/05:18 P/Sharla Lizama MD Date Trans: 04/12/2022 05:18 P/ [id number] cc: Bennie Albright M.D. [address] [id number] [place] [facility] Operative Report MR#: [id number] [facility] Pt. Name: María Elena Tafoya Room #: 5AB [id number] Discharge Date: Birthdate: 1940 OPERATIVE REPORT DATE OF SURGERY: 04/12/2022 SURGEON: Sharla Lizama MD Operative report: Laparoscopic cholecystectomy Location: [facility] main or Preoperative diagnosis: Gallstone pancreatitis Postoperative diagnosis: Gallstone pancreatitis Operation performed: Laparoscopic cholecystectomy Surgeon: Sharla Lizama MD Advanced Solutions Architect: Dillon Thomas MD (resident pgy5) Estimated blood loss: 40 mL Wound classification: Clean contaminated Specimens: Gallbladder for permanent specimen Anesthesia: General anesthesia Local anesthetic: Quarter percent ropivacaine with epinephrine, total 15 mL used for subcutaneous and subfascial infiltration Indication: This is a 81-year-old woman who presented on 04/01/2022 with abdominal pain secondary to gallstone pancreatitis and choledocholithiasis. Patient underwent ERCP on 04/02/2022. Postoperatively patient's pancreatitis recovered without issues and patient was able to tolerate diet without pain. Initially patient was hesitant about cholecystectomy, after discussion about risks and benefits of cholecystectomy patient eventually chose to proceed with surgery. Details of the procedure: The patient was greeted in the preoperative holding area. History and physical and surgical consent was updated. Preoperative antibiotic with cefazolin was given. The patient was brought to the operating suite and placed on the surgical table in a supine position with both arms out. Safety straps and SCDs were applied. General anesthesia was induced without complications. Abdominal surgical site was prepped with chlorhexidine and allowed full 3 minutes to dry. Abdominal surgical site was squared off with sterile surgical towels and laparoscopy drape was placed in usual sterile fashion. Per incision safety timeout was performed. Abdominal entry was performed at right upper quadrant subcostal region midclavicular line using 5 mm Optiview. After abdominal entry the abdomen was insufflated. Entry site was checked for trauma, there were no visceral trauma noted. A 5 mm port was placed at the supraumbilical site. A 12 mm port was placed at the epigastric site. Another 5 mm port was placed at the right subcostal region anterior axillary line. Using an atraumatic wavy grasper the fundus of the gallbladder was grasped and retracted anteriorly and cephalad. The infundibulum of the gallbladder was retracted medially and laterally as the peritoneum over the cholecystic triangle was scored open using monopolar electrocautery. Fibrofatty connective tissue within the cholecystic triangle was taken down using monopolar electrocautery and bluntly using laparoscopic Kitner. The cystic duct was isolated using [place] dissector. The cystic artery was also isolated using [place] dissector. The cystic artery was secured using large Hem-o-gualberto clips, 1 clip proximal and 1 clip distal. The cystic artery was divided using laparoscopic scissors. The cystic duct appeared larger than normal in caliber, however considering the etiology of choledocholithiasis this is expected. The cystic duct was secured using large Hem-o-gualberto clips, 2 clips proximal and 1 clip distal. The cystic duct was divided using laparoscopic scissors. The gallbladder was mobilized off of the gallbladder fossa using monopolar electrocautery. There was 1 posterior cystic artery that we encountered after a significant portion of the gallbladder had been mobilized, the posterior cystic artery was secured using another large Hem-o-gualberto clip. Gallbladder was mobilized off of the gallbladder fossa and placed into the Endo Catch bag. Abdomen was suctioned and irrigated. The gallbladder was removed via the epigastric port site. The ports were removed and abdomen was desufflated. Incision sites were closed using buried interrupted 4-0 Monocryl sutures. Skin glue was applied over the incision sites. The patient was extubated without complications and transferred to the postop recovery suite in stable condition. Complications: None Electronically Signed by: Sharla Lizama MD 04/12/2022 05:25 P Sharla Lizama MD Date Dict: 04/12/2022/05:18 P/Sharla Lizama MD Date Trans: 04/12/2022 05:18 P/ [id number] cc: Bennie Albright M.D. [address] [id number] Normal [facility] POC GLUCOSE LABon 04-12-2022 Glucose [Mass/Vol] 122 mg/dL High 70-100 [facility] Comment on above: Performed By: #### 8 5499 #### [facility] [address] [place] [address], [place] Glucose [Mass/Vol] 167 mg/dL High 70-100 [facility] Comment on above: Performed By: #### 8 5499 ####[facility] [place] [address], [place] Glucose [Mass/Vol] 105 mg/dL High 70-100 [facility] Comment on above: Performed By: #### 3 0313 #### [facility] [address] [place] [address], [facility] Glucose [Mass/Vol] 111 mg/dL High 70-100 [facility] Comment on above: Performed By: #### 8 5499 ####[facility] [facility] Glucose [Mass/Vol] 109 mg/dL High 70-100 [facility] Comment on above: Performed By: #### 3 0313 #### [facility] [address] POC SARS COV2 IDon 2 SARS-CoV-2 (COVID-19) RNA MATTHEW+probe Ql (Unsp spec) Negative Normal NEGATIVE [facility] Comment on above: Result Comment: ID N OW COVID-19 assay performed on the ID NOW Instrument is a rapid molecular in vitro diagnostic test utilizing an isothermal nucleic acid amplification technology intended for the qualitative detection of nucleic acid from the SARS-CoV-2 virus in direct anterior nasal (nasal), nasopharyngeal or throat swabs from individuals who are suspected of COVID-19 by their healthcare provider within the first seven days of the onset of symptoms. Testing is limited to laboratories certified under the Clinical Laboratory Improvement Amendments of 1988 (CLIA), 42 U.S.C. ???263a,that meet the requirements to perform high, moderate, or waived complexity tests. The ID NOW COVID-19 assay is also authorized for use at the Point of Care (POC), i.e., in patient care settings operating under a CLIA Certificate of Waiver, Certificate of Compliance, or Certificate of Accreditation. Performed By: #### 8 5499 #### [facility] [address] BASIC METABOLIC PANELon 05- Calcium [Mass/Vol] 8.3 mg/dL Low 8.6-10.3 [facility] Comment on above: Order Comment: No: D o not add to previous draw Performed By: #### 8 5499 #### [facility] [address] [place] [address], [place] Chloride [Moles/Vol] 106 mmol/L Normal 98-107 [facility] Comment on above: Order Comment: No: D o not add to previous draw Performed By: #### 8 5499 #### [facility] [address] [place] [address], [place] CO2 [Moles/Vol] 23 mmol/L Normal 21-31 [facility] Comment on above: Order Comment: No: D o not add to previous draw Performed By: #### 8 5499 #### [facility] [address] [place] [address], [place] Creatinine [Mass/Vol] 1.21 mg/dL High 0.60-1.20 [facility] Comment on above: Order Comment: No: D o not add to previous draw Performed By: #### 8 5499 #### [facility] [address] [place] [address], [place] eGFR- 51 ml/min/1.73sq m Abnormal >60 [facility] Comment on above: Order Comment: No: D o not add to previous draw Result Comment: Calc ulation may not be valid for patients over 70 years Performed By: #### 8 5499 #### [facility] [address] [place] [address], [place] eGFR- non- 42 ml/min/1.73sq m Abnormal >60 [facility] Comment on above: Order Comment: No: D o not add to previous draw Result Comment: Calc ulation may not be valid for patients over 70 years Performed By: #### 8 [id number] #### [facility] [address] [place] [address], [place] Glucose [Mass/Vol] 91 mg/dL Normal 70-100 [facility] Comment on above: Order Comment: No: D o not add to previous draw Performed By: #### 8 [id number] #### [facility] [address] [place] [address], [facility] Potassium [Moles/Vol] 4.5 mmol/L Normal 3.5-5.1 [facility] Comment on above: Order Comment: No: D o not add to previous draw Performed By: #### 8 [id number] #### [facility] [address] [place] [address], [place] Sodium [Moles/Vol] 138 mmol/L Normal 136-145 [facility] Comment on above: Order Comment: No: D o not add to previous draw Performed By: #### 8 [id number] #### [facility] [address] [place] [address], [facility] Urea nitrogen [Mass/Vol] 22 mg/dL Normal 7-25 [facility] Comment on above: Order Comment: No: D o not add to previous draw Performed By: #### 8 [id number] #### [facility] [address] [place] [address], [facility] CBC COMPLETE BLOOD COUNTon 0 04-11-2022 Erythrocyte distribution width (RBC) [Ratio] 19.6 % High 11.5-15.0 [facility] Comment on above: Order Comment: No: D o not add to previous draw Performed By: #### 5 [id number] #### [facility] [address] [place] [address], [place] Hematocrit (Bld) [Volume fraction] 29.5 % Low 36.0-45.0 [facility] Comment on above: Order Comment: No: D o not add to previous draw Performed By: #### 5 [id number] #### [facility] [address] [place] [address], [place] Hemoglobin (Bld) [Mass/Vol] 9.2 g/dL Low 12.0-15.[address] [facility] [facility] Comment on above: Order Comment: No: D o not add to previous draw Performed By: #### 5 [id number] #### [facility] [address] [address], [facility] MCH (RBC) [Entitic mass] 31.0 pg Normal 27.0-33.0 [facility] Comment on above: Order Comment: No: D o not add to previous draw Performed By: #### 5 [id number] #### [facility] [address] [place] [address], [facility] MCHC (RBC) [Mass/Vol] 31.2 g/dL Low 32.0-35.0 [facility] Comment on above: Order Comment: No: D o not add to previous draw Performed By: #### 5 [id number] #### [facility] [address] [place] [address], [facility] MCV (RBC) [Entitic vol] 99.3 fL High 82.0-98.0 [facility] Comment on above: Order Comment: No: D o not add to previous draw Performed By: #### 5 [id number] #### [facility] [address] Nucleated RBC/100 WBC (Bld) [Ratio] 0 % Normal 0-0 [facility] Comment on above: Order Comment: No: D o not add to previous draw Performed By: #### 5 [id number] #### [facility] [address] [place] [address], [facility] PLAT CNT 277 10*3/uL Normal 150-400 [facility] Comment on above: Order Comment: No: D o not add to previous draw Performed By: #### 5 [id number] #### [facility] [address] [place] [address], [facility] RBC (Bld) [#/Vol] 2.97 10*6/uL Low 3.80-5.00 The [facility] Comment on above: Order Comment: No: D o not add to previous draw Performed By: #### 5 [id number] #### [facility] [address] [place] [address], [facility] WBC (Bld) [#/Vol] 20.81 10*3/uL High 4.00-10.60 [facility] Comment on above: Order Comment: No: D o not add to previous draw Performed By: #### 5 [id number] #### [facility] [address] [place] [address], [facility] LIVER BATTERYon 04-11-2022 Albumin [Mass/Vol] 3.1 g/dL Low 3.5-5.7 [facility] Comment on above: Order Comment: No: D o not add to previous draw Performed By: #### 8 [id number] #### [facility] [address] [place] [address], [facility] ALKALINE PHOSPH 92 IU/L Normal 34-104 The [facility] Comment on above: Order Comment: No: D o not add to previous draw Performed By: #### 8 [id number] #### [facility] [address] [place] [address], [facility] ALT [Catalytic activity/Vol] 7 U/L Normal 7-52 [facility] Comment on above: Order Comment: No: D o not add to previous draw Performed By: #### 8 [id number] #### [facility] [address] [place] [address], [place] AST [Catalytic activity/Vol] 9 U/L Low 13-39 [facility] Comment on above: Order Comment: No: D o not add to previous draw Performed By: #### 8 [id number] #### [facility] [address] [place] [address], [place] Bilirubin [Mass/Vol] 0.8 mg/dL Normal 0.3-1.0 [facility] Comment on above: Order Comment: No: D o not add to previous draw Performed By: #### 8 [id number] #### [facility] [address] [place] [address], [facility] Bilirubin.direct [Mass/Vol] 0.3 mg/dL High 0.0-0.2 [facility] Comment on above: Order Comment: No: D o not add to previous draw Performed By: #### 8 [id number] #### [facility] [address] [place] [address], [place] Protein [Mass/Vol] 5.7 g/dL Low 6.0-8.3 [facility] Comment on above: Order Comment: No: D o not add to previous draw Performed By: #### 8 [id number] #### [facility] [address] [place] [address], [place] MAGNESIUM BLOODon 04-11-2022 Magnesium [Mass/Vol] 1.7 mg/dL Low 1.9-2.7 [facility] Comment on above: Order Comment: No: D o not add to previous draw Performed By: #### 8 [id number] #### [facility] [address] [place] [address], [place] POC GLUCOSE LABon 04-11-2022 Glucose [Mass/Vol] 143 mg/dL High 70-100 [facility] Comment on above: Performed By: #### 8 [id number] #### [facility] [address] [place] [address], [place] Glucose [Mass/Vol] 142 mg/dL High 70-100 [facility] Comment on above: Performed By: #### 8 [id number] ####[facility] [place] [address], [place] Glucose [Mass/Vol] 125 mg/dL High 70-100 [facility] Comment on above: Performed By: #### 8 [id number] #### [facility] [address] [place] [address], [facility] Glucose [Mass/Vol] 113 mg/dL High 70-100 [facility] Comment on above: Performed By: #### 3 [id number] #### [facility] [address] [place] [address], [facility] URINE SMITH STAIN/EOSon EOSINOPHIL SMEAR NONE SEEN Normal NSN The [facility] Comment on above: Order Comment: No: D o not add to previous draw [place] Normal [facility] Comment on above: Order Comment: No: D o not add to previous draw Result Comment: Test Performed by [facility] [address] [place] [address] - Mkhwkzqw 04/11/2022 22:02 BASIC METABOLIC PANELon 05-2 Calcium [Mass/Vol] 8.3 mg/dL Low 8.6-10.3 [facility] Comment on above: Order Comment: No: D o not add to previous draw Performed By: #### 8 [id number] #### [facility] [address] [place] [address], [facility] Chloride [Moles/Vol] 107 mmol/L Normal 98-107 [facility] Comment on above: Order Comment: No: D o not add to previous draw Performed By: #### 8 [id number] #### [facility] [address] [place] [address], [facility] CO2 [Moles/Vol] 23 mmol/L Normal 21-31 The [facility] Comment on above: Order Comment: No: D o not add to previous draw Performed By: #### 8 [id number] #### [facility] [address] [place] [address], [facility] Creatinine [Mass/Vol] 1.40 mg/dL High 0.60-1.20 [facility] Comment on above: Order Comment: No: D o not add to previous draw Performed By: #### 8 [id number] #### [facility] [address] [place] [address], [place] eGFR- 44 ml/min/1.73sq m Abnormal >60 [facility] Comment on above: Order Comment: No: D o not add to previous draw Result Comment: Calc ulation may not be valid for patients over 70 years Performed By: #### 8 [id number] #### [facility] [address] [place] [address], [place] eGFR- non- 36 ml/min/1.73sq m Abnormal >60 [facility] Comment on above: Order Comment: No: D o not add to previous draw Result Comment: Calc ulation may not be valid for patients over 70 years Performed By: #### 8 [id number] #### [facility] [address] [place] [address], [place] Glucose [Mass/Vol] 101 mg/dL High 70-100 [facility] Comment on above: Order Comment: No: D o not add to previous draw Performed By: #### 8 [id number] #### [facility] [address] [place] [address], [place] Potassium [Moles/Vol] 4.1 mmol/L Normal 3.5-5.1 [facility] Comment on above: Order Comment: No: D o not add to previous draw Performed By: #### 8 [id number] #### [facility] [address] [place] [address], [place] Sodium [Moles/Vol] 138 mmol/L Normal 136-145 [facility] Comment on above: Order Comment: No: D o not add to previous draw Performed By: #### 8 [id number] #### [facility] [address] [place] [address], [place] Urea nitrogen [Mass/Vol] 25 mg/dL Normal 7-25 [facility] Comment on above: Order Comment: No: D o not add to previous draw Performed By: #### 8 [id number] #### [facility] [address] CBC COMPLETE BLOOD COUNTon 0 - Erythrocyte distribution width (RBC) [Ratio] 19.9 % High 11.5-15.0 [facility] Comment on above: Order Comment: No: D o not add to previous draw Performed By: #### 5 [id number] #### [facility] [address] [place] [address], [facility] Hematocrit (Bld) [Volume fraction] 29.1 % Low 36.0-45.0 [facility] Comment on above: Order Comment: No: D o not add to previous draw Performed By: #### 5 [id number] #### [facility] [address] Hemoglobin (Bld) [Mass/Vol] 9.1 g/dL Low 12.0-15.0 [facility] Comment on above: Order Comment: No: D o not add to previous draw Performed By: #### 5 [id number] #### [facility] [address] [facility] [place] [address], [facility] MCH (RBC) [Entitic mass] 30.6 pg Normal 27.0-33.0 [facility] Comment on above: Order Comment: No: D o not add to previous draw Performed By: #### 5 [id number] #### [facility] [address] [place] [address], [facility] MCHC (RBC) [Mass/Vol] 31.3 g/dL Low 32.0-35.0 [facility] Comment on above: Order Comment: No: D o not add to previous draw Performed By: #### 5 [id number] #### [facility] [address] [place] [address], [facility] MCV (RBC) [Entitic vol] 98.0 fL Normal 82.0-98.0 [facility] Comment on above: Order Comment: No: D o not add to previous draw Performed By: #### 5 [id number] #### [facility] [address] [facility] [place] [address], [facility] Nucleated RBC/100 WBC (Bld) [Ratio] 0 % Normal 0-0 [facility] Comment on above: Order Comment: No: D o not add to previous draw Performed By: #### 5 [id number] #### [facility] [address] [place] [address], [facility] PLAT CNT 281 10*3/uL Normal 150-400 [facility] Comment on above: Order Comment: No: D o not add to previous draw Performed By: #### 5 [id number] #### [facility] [address] [place] [address], [facility] RBC (Bld) [#/Vol] 2.97 10*6/uL Low 3.80-5.00 [facility] Comment on above: Order Comment: No: D o not add to previous draw Performed By: #### 5 [id number] #### [facility] [address] [place] [address], [facility] WBC (Bld) [#/Vol] 19.64 10*3/uL High 4.00-10.60 [facility] Comment on above: Order Comment: No: D o not add to previous draw Performed By: #### 5 [id number] #### [facility] [address] [place] [address], [facility] MAGNESIUM BLOODon 04-10-2022 Magnesium [Mass/Vol] 1.6 mg/dL Low 1.9-2.7 [facility] Comment on above: Order Comment: No: D o not add to previous draw Performed By: #### 8 [id number] #### [facility] [address] [place] [address], [facility] POC GLUCOSE LABon 04-10-2022 Glucose [Mass/Vol] 154 mg/dL High 70-100 [facility] Comment on above: Performed By: #### 8 [id number] #### [facility] [address] [place] [address], [place] Glucose [Mass/Vol] 120 mg/dL High 70-100 [facility] Comment on above: Performed By: #### 3 [id number] #### [facility] [address] [place] [address], [place] Glucose [Mass/Vol] 131 mg/dL High 70-100 [facility] Comment on above: Performed By: #### 8 [id number] ####[facility] [place] [address], [place] Glucose [Mass/Vol] 114 mg/dL High 70-100 [facility] Comment on above: Performed By: #### 8 [id number] #### [facility] [address] [place] [address], [place] BASIC METABOLIC PANELon 05-2 -2021 Calcium [Mass/Vol] 8.7 mg/dL Normal 8.6-10.3 [facility] Comment on above: Order Comment: No: D o not add to previous draw Performed By: #### 8 [id number] #### [facility] [address] [place] [address], [place] Chloride [Moles/Vol] 104 mmol/L Normal 98-107 [facility] Comment on above: Order Comment: No: D o not add to previous draw Performed By: #### 8 [id number] #### [facility] [address] [place] [address], [place] CO2 [Moles/Vol] 24 mmol/L Normal 21-31 The [facility] Comment on above: Order Comment: No: D o not add to previous draw Performed By: #### 8 [id number] #### [facility] [address] [place] [address], [place] Creatinine [Mass/Vol] 1.29 mg/dL High 0.60-1.20 [facility] Comment on above: Order Comment: No: D o not add to previous draw Performed By: #### 8 [id number] #### [facility] [address] [place] [address], [place] eGFR- 48 ml/min/1.73sq m Abnormal >60 [facility] Comment on above: Order Comment: No: D o not add to previous draw Result Comment: Calc ulation may not be valid for patients over 70 years Performed By: #### 8 [id number] #### [facility] [address] [place] [address], [place] eGFR- non- 39 ml/min/1.73sq m Abnormal >60 [facility] Comment on above: Order Comment: No: D o not add to previous draw Result Comment: Calc ulation may not be valid for patients over 70 years Performed By: #### 8 [id number] #### [facility] [address] [place] [address], [place] Glucose [Mass/Vol] 90 mg/dL Normal 70-100 [facility] Comment on above: Order Comment: No: D o not add to previous draw Performed By: #### 8 [id number] #### [facility] [address] [place] [address], [place] Potassium [Moles/Vol] 4.3 mmol/L Normal 3.5-5.1 [facility] Comment on above: Order Comment: No: D o not add to previous draw Performed By: #### 8 [id number] #### [facility] [address] [place] [address], [place] Sodium [Moles/Vol] 137 mmol/L Normal 136-145 [facility] Comment on above: Order Comment: No: D o not add to previous draw Performed By: #### 8 [id number] #### [facility] [address] [place] [address], [place] Urea nitrogen [Mass/Vol] 16 mg/dL Normal 7-25 [facility] Comment on above: Order Comment: No: D o not add to previous draw Performed By: #### 8 [id number] #### [facility] [address] [place] [id number], [facility] CBC COMPLETE BLOOD COUNTon 0 - Erythrocyte distribution width (RBC) [Ratio] 19.4 % High 11.5-15.0 [facility] Comment on above: Order Comment: No: D o not add to previous draw Performed By: #### 8 [id number] #### [facility] [address] [place] [address], [facility] Hematocrit (Bld) [Volume fraction] 29.9 % Low 36.0-45.0 [facility] Comment on above: Order Comment: No: D o not add to previous draw Performed By: #### 8 [id number] #### [facility] [address] [place] [address], [facility] Hemoglobin (Bld) [Mass/Vol] 9.4 g/dL Low 12.0-15.0 [facility] Comment on above: Order Comment: No: D o not add to previous draw Performed By: #### 8 [id number] #### [facility] [address] [place] [address], [facility] MCH (RBC) [Entitic mass] 30.4 pg Normal 27.0-33.0 [facility] Comment on above: Order Comment: No: D o not add to previous draw Performed By: #### 8 [id number] #### [facility] [address] [place] [address], [place] MCHC (RBC) [Mass/Vol] 31.4 g/dL Low 32.0-35.0 [facility] Comment on above: Order Comment: No: D o not add to previous draw Performed By: #### 8 [id number] #### [facility] [address] [place] [address], [facility] MCV (RBC) [Entitic vol] 96.8 fL Normal 82.0-98.0 [facility] Comment on above: Order Comment: No: D o not add to previous draw Performed By: #### 8 [id number] #### [facility] [address] [place] [address], [facility] Nucleated RBC/100 WBC (Bld) [Ratio] 0 % Normal 0-0 [facility] Comment on above: Order Comment: No: D o not add to previous draw Performed By: #### 8 [id number] #### [facility] [address] [place] [address], [facility] PLAT CNT 325 10*3/uL Normal 150-400 [facility] Comment on above: Order Comment: No: D o not add to previous draw Performed By: #### 8 [id number] #### [facility] [address] [place] [address], [facility] RBC (Bld) [#/Vol] 3.09 10*6/uL Low 3.80-5.00 [facility] Comment on above: Order Comment: No: D o not add to previous draw Performed By: #### 8 [id number] #### [facility] [address] [place] [address], [facility] WBC (Bld) [#/Vol] 21.91 10*3/uL High 4.00-10.60 [facility] Comment on above: Order Comment: No: D o not add to previous draw Performed By: #### 8 [id number] #### [facility] [address] [place] [address], [facility] CREATININE URINE RANDOMon Creatinine (U) [Mass/Vol] 40.0 mg/dL Normal [facility] Comment on above: Order Comment: The A ptima SARS-CoV-2 assay is a nucleic acid amplification test intended for the qualitative detection of RNA from SARS-CoV-2 isolated and purified from nasopharyngeal ([employer]),oropharyngeal (OP), nasal swab, sputum, and bronchoalveolar lavage (BAL) specimens from patients with signs and symptoms of infection who are suspected of COVID-19. Results are for the identification of SARS-CoV-2 RNA. The SARS-CoV-2 RNA is generally detectable during the acute phase of infection. The Aptima SARS-CoV-2 Assay on the [employer] system is intended for use by laboratory personnel specifically instructed and trained in the operation of the [employer] system. The Aptima SARS-CoV-2 assay is only for use under the Food and Drug Administration Emergency Use Authorization. Testing is limited to laboratories certified under the Clinical Laboratory Improvement Amendments of 1988 (CLIA), 42 U.S.C. ???263a, to perform high complexity tests. Not Detected: Not detected does not preclude SARS-CoV-2 infection and should not be used as the sole basis for patient management decisions. Not detected results must be combined with clinical observations, patient history, and epidemiological information. Result Comment: Ther e are no established reference values for random urine specimens Performed By: #### 3 [id number] #### [facility] [address] [place] [address], [facility] MAGNESIUM BLOODon 04-09-2022 Magnesium [Mass/Vol] 1.9 mg/dL Normal 1.9-2.7 [facility] Comment on above: Order Comment: No: D o not add to previous draw Performed By: #### 8 [id number] #### [facility] [address] [place] [address], [facility] OSMOLALITY URINEon OSMOLALITY 317 mOsm/kg Normal 50-1400 [facility] Comment on above: Order Comment: The A ptima SARS-CoV-2 assay is a nucleic acid amplification test intended for the qualitative detection of RNA from SARS-CoV-2 isolated and purified from nasopharyngeal ([employer]),oropharyngeal (OP), nasal swab, sputum, and bronchoalveolar lavage (BAL) specimens from patients with signs and symptoms of infection who are suspected of COVID-19. Results are for the identification of SARS-CoV-2 RNA. The SARS-CoV-2 RNA is generally detectable during the acute phase of infection. The Aptima SARS-CoV-2 Assay on the [employer] system is intended for use by laboratory personnel specifically instructed and trained in the operation of the [employer] system. The Aptima SARS-CoV-2 assay is only for use under the Food and Drug Administration Emergency Use Authorization. Testing is limited to laboratories certified under the Clinical Laboratory Improvement Amendments of 1988 (CLIA), 42 U.S.C. ???263a, to perform high complexity tests. Not Detected: Not detected does not preclude SARS-CoV-2 infection and should not be used as the sole basis for patient management decisions. Not detected results must be combined with clinical observations, patient history, and epidemiological information. Performed By: #### 3 [id number] #### [facility] [address] [place] [address], [facility] POC GLUCOSE LABon 04-09-2022 Glucose [Mass/Vol] 159 mg/dL High 70-100 [facility] Comment on above: Performed By: #### [id number] #### [facility] [address] [place] [address], [facility] Glucose [Mass/Vol] 141 mg/dL High 70-100 [facility] Comment on above: Performed By: #### 8 [id number] #### [facility] [address] [place] [address], [facility] Glucose [Mass/Vol] 337 mg/dL High 70-100 [facility] Comment on above: Performed By: #### 8 [id number] #### [facility] [address] [place] [address], [facility] Glucose [Mass/Vol] 113 mg/dL High 70-100 [facility] Comment on above: Order Comment: NOTE: Result Checked Performed By: #### 3 [id number] #### [facility] [address] [place] [address], [facility] SODIUM URINE RANDOMon 2021 Sodium (U) [Moles/Vol] 105 mmol/L Normal [facility] Comment on above: Order Comment: The A ptima SARS-CoV-2 assay is a nucleic acid amplification test intended for the qualitative detection of RNA from SARS-CoV-2 isolated and purified from nasopharyngeal ([employer] SKIN),oropharyngeal (OP), nasal swab, sputum, and bronchoalveolar lavage (BAL) specimens from patients with signs and symptoms of infection who are suspected of COVID-19. Results are for the identification of SARS-CoV-2 RNA. The SARS-CoV-2 RNA is generally detectable during the acute phase of infection. The Aptima SARS-CoV-2 Assay on the [employer] system is intended for use by laboratory personnel specifically instructed and trained in the operation of the [employer] system. The Aptima SARS-CoV-2 assay is only for use under the Food and Drug Administration Emergency Use Authorization. Testing is limited to laboratories certified under the Clinical Laboratory Improvement Amendments of 1988 (CLIA), 42 U.S.C. ???263a, to perform high complexity tests. Not Detected: Not detected does not preclude SARS-CoV-2 infection and should not be used as the sole basis for patient management decisions. Not detected results must be combined with clinical observations, patient history, and epidemiological information. Result Comment: Ther e are no established reference values for random urine specimens Performed By: #### 3 [id number] #### [address] UA,MICROSCOPIC REQUIREDon Appearance (U) CLEAR Normal CLEAR The [facility] Comment on above: Order Comment: No: D o not add to previous draw Performed By: #### 8 [id number] #### [facility] [address] Bilirubin Ql (U) Negative Normal NEGATIVE The [facility] Comment on above: Order Comment: No: D o not add to previous draw Performed By: #### 8 [id number] #### [address] BUDDING YEAST FEW Abnormal NONE SEEN The [facility] Comment on above: Order Comment: No: D o not add to previous draw Performed By: #### 8 [id number] #### [facility] [address] [place] [address], [place] Color (U) YELLOW Normal YELLOW [facility] Comment on above: Order Comment: No: D o not add to previous draw Performed By: #### 8 [id number] #### [facility] [address] [place] [address], [place] EPIS NONE SEEN Normal FEW,OCC,NONE SEEN [facility] Comment on above: Order Comment: No: D o not add to previous draw Performed By: #### 8 [id number] #### [facility] [address] [place] [address], [place] Glucose Ql (U) Negative Normal NEGATIVE The [facility] Comment on above: Order Comment: No: D o not add to previous draw Performed By: #### 8 [id number] #### [facility] [address] [place] [address], [place] Hemoglobin Ql (U) SMALL Abnormal NEGATIVE The [facility] Comment on above: Order Comment: No: D o not add to previous draw Performed By: #### 8 [id number] #### [facility] [address] [place] [address], [place] KETONE Negative Normal NEGATIVE [facility] Comment on above: Order Comment: No: D o not add to previous draw Performed By: #### 8 [id number] #### [facility] [address] [place] [address], [place] LEUK LUIS ANTONIO Negative Normal NEGATIVE [facility] Comment on above: Order Comment: No: D o not add to previous draw Performed By: #### 8 [id number] #### [facility] [address] [place] [address], [place] Nitrite Ql (U) Negative Normal NEGATIVE The [facility] Comment on above: Order Comment: No: D o not add to previous draw Performed By: #### 8 [id number] #### [facility] [address] [place] [address], [place] pH (U) 7.0 [pH] Normal 5.0-8.0 [facility] Comment on above: Order Comment: No: D o not add to previous draw Performed By: #### 8 [id number] #### [facility] [address] [place] [address], [facility] Protein Ql (U) Negative Normal NEGATIVE The [facility] Comment on above: Order Comment: No: D o not add to previous draw Performed By: #### 8 [id number] #### [facility] [address] [place] [address], [facility] RBC 0-2 Abnormal NONE SEEN The [facility] Comment on above: Order Comment: No: D o not add to previous draw Performed By: #### 8 [id number] #### [facility] [address] [facility]. [address] SPEC GRAV 1.008 Low 1.015-1.020 The [facility] Comment on above: Order Comment: No: D o not add to previous draw Performed By: #### 8 [id number] #### [facility] [address] [place] [address], [facility] WBC UA NONE SEEN Normal NONE SEEN [facility] Comment on above: Order Comment: No: D o not add to previous draw Performed By: #### 8 [id number] #### [facility] [address] [facility]. [address] *BLOOD CULTUREon 04-08-2022 *BLOOD CULTURE Clinical Report: (D) Specimen: BLOOD CULTURE Collected: 04/08/2022 18:50 Status: Final Last Updated: 04/14/2022 06:21 CULT RES (Final) No Growth Day 5 Normal [facility] Comment on above: Performed By: #### 3 0313 #### [facility] [address] [facility]. [address] *BLOOD CULTURE Clinical Report: (D) Specimen: BLOOD CULTURE Collected: 04/08/2022 15:33 Status: Final Last Updated: 04/14/2022 06:21 (1) Per denisha Fernandez.labs to be drawn at three CULT RES (Final) No Growth Day 5 Normal [facility] Comment on above: Order Comment: No: D o not add to previous draw Performed By: #### 5 0608 #### [facility] [address] [place] [address], [place] BASIC METABOLIC PANELon 03-19 Calcium [Mass/Vol] 8.9 mg/dL Normal 8.6-10.3 [facility] Comment on above: Order Comment: No: D o not add to previous draw Performed By: #### 2 2706 #### [facility] [address] [place] [address], [place] Chloride [Moles/Vol] 105 mmol/L Normal 98-107 [facility] Comment on above: Order Comment: No: D o not add to previous draw Performed By: #### 2 2706 #### [facility] [address] [place] [address], [place] CO2 [Moles/Vol] 24 mmol/L Normal 21-31 [facility] Comment on above: Order Comment: No: D o not add to previous draw Performed By: #### 2 2706 #### [facility] [address] [place] [address], [place] Creatinine [Mass/Vol] 1.03 mg/dL Normal 0.60-1.20 [facility] Comment on above: Order Comment: No: D o not add to previous draw Performed By: #### 2 2706 #### [facility] [address] [place] [address], [place] eGFR- non- 51 ml/min/1.73sq m Abnormal >60 The [facility] Comment on above: Order Comment: No: D o not add to previous draw Result Comment: Calc ulation may not be valid for patients over 70 years Performed By: #### 2 2706 #### [facility] [address] [place] [address], [facility] GFR/1.73 sq M.predicted among blacks MDRD (S/P/Bld) [Vol rate/Area] mL/min/{1.73_m2} Normal >60 [facility] Comment on above: Order Comment: No: D o not add to previous draw Result Comment: Calc ulation may not be valid for patients over 70 years Performed By: #### 2 2706 #### [facility] [address] [place] [address], [facility] Glucose [Mass/Vol] 113 mg/dL High 70-100 [facility] Comment on above: Order Comment: No: D o not add to previous draw Performed By: #### 2 2706 #### [facility] [address] [place] [address], [facility] Potassium [Moles/Vol] 4.1 mmol/L Normal 3.5-5.1 [facility] Comment on above: Order Comment: No: D o not add to previous draw Performed By: #### 2 2706 #### [facility] [address] [place] [address], [facility] Sodium [Moles/Vol] 136 mmol/L Normal 136-145 [facility] Comment on above: Order Comment: No: D o not add to previous draw Performed By: #### 2 2706 #### [facility] [address] [place] [address], [place] Urea nitrogen [Mass/Vol] 11 mg/dL Normal 7-25 [facility] Comment on above: Order Comment: No: D o not add to previous draw Performed By: #### 2 2706 #### [facility] [address] [place] [address], [place] CBC W/DIFFon 04-08-2022 ABS IMM GRANS 0.4 10*3/uL High 0.0-0.2 The [facility] Comment on above: Performed By: #### 8 [id number] #### [facility] [address] [place] [address], [facility] ABS NEUTROPHILS 24.5 10*3/uL High 1.6-7.6 The [facility] Comment on above: Performed By: #### 8 [id number] #### [facility] [address] [place] [address], [facility] ANISO Moderate Normal [facility] Comment on above: Performed By: #### 8 [id number] #### [facility] [address] [place] [address], [facility] Basophils (Bld) [#/Vol] 0.2 10*3/uL Normal 0.0-0.2 [facility] Comment on above: Performed By: #### 8 [id number] #### [facility] [address] [place] [address], [facility] Basophils/100 WBC (Bld) 0.6 % Normal 0.0-1.0 [facility] Comment on above: Performed By: #### 8 [id number] #### [facility] [address] [place] [address], [facility] Eosinophils (Bld) [#/Vol] 0.0 10*3/uL Normal 0.0-0.5 [facility] Comment on above: Performed By: #### 8 [id number] #### [facility] [address] [place] [address], [facility] Eosinophils/100 WBC (Bld) 0.1 % Normal 0.0-6.0 [facility] Comment on above: Performed By: #### 8 [id number] #### [facility] [address] [place] [address], [facility] Erythrocyte distribution width (RBC) [Ratio] 19.1 % High 11.5-15.0 [facility] Comment on above: Performed By: #### 8 [id number] #### [facility] [address] [facility] [address], [facility] Hematocrit (Bld) [Volume fraction] 32.3 % Low 36.0-45.0 [facility] Comment on above: Performed By: #### 8 [id number] #### [facility] [address] [place] [address], [facility] Hemoglobin (Bld) [Mass/Vol] 10.1 g/dL Low 12.0-15.0 [facility] Comment on above: Performed By: #### 8 [id number] #### [facility] [address] [place] [address], [facility] IMMATURE GRANS 1.5 % High 0.0-1.0 The [facility] Comment on above: Performed By: #### 8 [id number] #### [facility] [address] Lymphocytes (Bld) [#/Vol] 1.5 10*3/uL Normal 1.2-4.0 [facility] Comment on above: Performed By: #### 8 5499 #### [facility] [address] [place] [address], [facility] Lymphocytes/100 WBC (Bld) 5.5 % Low 20.0-45.0 [facility] Comment on above: Performed By: #### 8 [id number] #### [facility] [address] [facility]. [address] MCH (RBC) [Entitic mass] 30.4 pg Normal 27.0-33.0 [facility] Comment on above: Performed By: #### 8 [id number] #### [facility] [address] [place] [address], [facility] MCHC (RBC) [Mass/Vol] 31.3 g/dL Low 32.0-35.0 [facility] Comment on above: Performed By: #### 8 [id number] #### [facility] [address] [place] [address], [facility] MCV (RBC) [Entitic vol] 97.3 fL Normal 82.0-98.0 [facility] Comment on above: Performed By: #### 8 [id number] #### [facility] [address] [place] [address], [facility] Monocytes (Bld) [#/Vol] 0.6 10*3/uL Normal 0.1-1.0 [facility] Comment on above: Performed By: #### 8 [id number] #### [facility] [address] [place] [address], [facility] MONOS 2.1 % Low 5.0-12.0 [facility] Comment on above: Performed By: #### 8 [id number] #### [facility] [address] [place] [address], [facility] Neutrophils/100 WBC (Bld) 90.2 % High 40.0-72.0 [facility] Comment on above: Performed By: #### 8 [id number] #### [facility] [address] [place] [address], [facility] Nucleated RBC/100 WBC (Bld) [Ratio] 0 % Normal 0-0 [facility] Comment on above: Performed By: #### 8 [id number] #### [facility] [address] [place] [address], [facility] PLAT CNT 321 10*3/uL Normal 150-400 [facility] Comment on above: Performed By: #### 8 [id number] #### [facility] [address] [place] [address], [facility] POIK Slight Normal [facility] Comment on above: Performed By: #### 8 [id number] #### [facility] [address] [place] [address], [facility] POLY Slight Normal [facility] Comment on above: Performed By: #### 8 [id number] #### [facility] [address] [place] [address], [place] RBC (Bld) [#/Vol] 3.32 10*6/uL Low 3.80-5.00 The [facility] Comment on above: Performed By: #### 8 [id number] #### [facility] [address] [place] [address], [place] WBC (Bld) [#/Vol] 27.12 10*3/uL High 4.00-10.60 [facility] Comment on above: Performed By: #### 8 [id number] #### [facility] [address] [place] [address], [place] MAGNESIUM BLOODon 04-08-2022 Magnesium [Mass/Vol] 1.4 mg/dL Low 1.9-2.7 [facility] Comment on above: Order Comment: No: D o not add to previous draw Performed By: #### 2 2706 #### [facility] [address] [place] [address], [place] POC GLUCOSE LABon 04-08-2022 Glucose [Mass/Vol] 129 mg/dL High 70-100 [facility] Comment on above: Performed By: #### 8 [id number] #### [facility] [address] [place] [address], [place] Glucose [Mass/Vol] 130 mg/dL High 70-100 [facility] Comment on above: Performed By: #### 5 0608 #### [facility] [address] [place] [address], [place] Glucose [Mass/Vol] 132 mg/dL High 70-100 [facility] Comment on above: Performed By: #### 8 [id number] #### [facility] [address] [place] [address], [place] Glucose [Mass/Vol] 129 mg/dL High 70-100 [facility] Comment on above: Performed By: #### 8 [id number] #### [facility] [address] [place] [address], [facility] BASIC METABOLIC PANELon 05-2 Calcium [Mass/Vol] 7.8 mg/dL Low 8.6-10.3 [facility] Comment on above: Order Comment: No: D o not add to previous draw Performed By: #### 8 [id number] #### [facility] [address] [place] [address], [facility] Chloride [Moles/Vol] 107 mmol/L Normal 98-107 [facility] Comment on above: Order Comment: No: D o not add to previous draw Performed By: #### 8 [id number] #### [facility] [address] [place] [address], [place] CO2 [Moles/Vol] 26 mmol/L Normal 21-31 The [facility] Comment on above: Order Comment: No: D o not add to previous draw Performed By: #### 8 [id number] #### [facility] [address] [place] [address], [facility] Creatinine [Mass/Vol] 1.14 mg/dL Normal 0.60-1.20 [facility] Comment on above: Order Comment: No: D o not add to previous draw Performed By: #### 8 [id number] #### [facility] [address] [place] [id number], [facility] eGFR- 55 ml/min/1.73sq m Abnormal >60 The [facility] Comment on above: Order Comment: No: D o not add to previous draw Result Comment: Calc ulation may not be valid for patients over 70 years Performed By: #### 8 [id number] #### [facility] [address] [place] [address], [facility] eGFR- non- 45 ml/min/1.73sq m Abnormal >60 [facility] Comment on above: Order Comment: No: D o not add to previous draw Result Comment: Calc ulation may not be valid for patients over 70 years Performed By: #### 8 [id number] #### [facility] [address] [place] [address], [place] Glucose [Mass/Vol] 96 mg/dL Normal 70-100 The [facility] Comment on above: Order Comment: No: D o not add to previous draw Performed By: #### 8 [id number] #### [facility] [address] [place] [address], [place] Potassium [Moles/Vol] 4.0 mmol/L Normal 3.5-5.1 [facility] Comment on above: Order Comment: No: D o not add to previous draw Performed By: #### 8 [id number] #### [facility] [address] [place] [address], [place] Sodium [Moles/Vol] 139 mmol/L Normal 136-145 [facility] Comment on above: Order Comment: No: D o not add to previous draw Performed By: #### 8 [id number] #### [facility] [address] [place] [address], [place] Urea nitrogen [Mass/Vol] 13 mg/dL Normal 7-25 [facility] Comment on above: Order Comment: No: D o not add to previous draw Performed By: #### 8 [id number] #### [facility] [address] [place] [address], [place] CBC COMPLETE BLOOD COUNTon 0 - Erythrocyte distribution width (RBC) [Ratio] 19.3 % High 11.5-15.0 [facility] Comment on above: Order Comment: No: D o not add to previous draw Performed By: #### 5 0608 #### [facility] [address] [place] [address], [place] Hematocrit (Bld) [Volume fraction] 27.9 % Low 36.0-45.0 [facility] Comment on above: Order Comment: No: D o not add to previous draw Performed By: #### 5 0608 #### [facility] [address] [place] [address], [facility] Hemoglobin (Bld) [Mass/Vol] 8.4 g/dL Low 12.0-15.0 [facility] Comment on above: Order Comment: No: D o not add to previous draw Performed By: #### 5 0608 #### [facility] [address] [place] [address], [facility] MCH (RBC) [Entitic mass] 29.9 pg Normal 27.0-33.0 [facility] Comment on above: Order Comment: No: D o not add to previous draw Performed By: #### 5 0608 #### [facility] [address] [place] [address], [facility] MCHC (RBC) [Mass/Vol] 30.1 g/dL Low 32.0-35.0 [facility] Comment on above: Order Comment: No: D o not add to previous draw Performed By: #### 5 0608 #### [facility] [address] [place] [address], [facility] MCV (RBC) [Entitic vol] 99.3 fL High 82.0-98.0 [facility] Comment on above: Order Comment: No: D o not add to previous draw Performed By: #### 5 0608 #### [facility] [address] [place] [address], [facility] Nucleated RBC/100 WBC (Bld) [Ratio] 0 % Normal 0-0 [facility] Comment on above: Order Comment: No: D o not add to previous draw Performed By: #### 5 0608 #### [facility] [address] [place] [address], [facility] PLAT CNT 281 10*3/uL Normal 150-400 [facility] Comment on above: Order Comment: No: D o not add to previous draw Performed By: #### 5 0608 #### [facility] [address] [place] [address], [place] RBC (Bld) [#/Vol] 2.81 10*6/uL Low 3.80-5.00 The [facility] Comment on above: Order Comment: No: D o not add to previous draw Performed By: #### 5 0608 #### [facility] [address] [place] [address], [place] WBC (Bld) [#/Vol] 22.46 10*3/uL High 4.00-10.60 [facility] Comment on above: Order Comment: No: D o not add to previous draw Performed By: #### 5 0608 #### [facility] [address] [place] [address], [place] MAGNESIUM BLOODon 04-07-2022 Magnesium [Mass/Vol] 1.7 mg/dL Low 1.9-2.7 [facility] Comment on above: Order Comment: No: D o not add to previous draw Performed By: #### 8 [id number] #### [facility] [address] [place] [address], [place] POC GLUCOSE LABon 04-07-2022 Glucose [Mass/Vol] 192 mg/dL High 70-100 [facility] Comment on above: Performed By: #### 8 [id number] ####[facility] [place] [address], [place] Glucose [Mass/Vol] 139 mg/dL High 70-100 [facility] Comment on above: Performed By: #### 8 [id number] #### [facility] [address] [place] [address], [place] Glucose [Mass/Vol] 144 mg/dL High 70-100 [facility] Comment on above: Performed By: #### 8 [id number] #### [facility] [address] [place] [address], [place] Glucose [Mass/Vol] 111 mg/dL High 70-100 [facility] Comment on above: Performed By: #### 8 [id number] #### [facility] [address] [place] [address], [place] BASIC METABOLIC PANELon 05-2 0-2021 Calcium [Mass/Vol] 8.2 mg/dL Low 8.6-10.3 [facility] Comment on above: Order Comment: Bleed , altereed mental status Performed By: #### 0 0071, 89113, 28418, 45011, 67041 ####[facility] [place] [address], [facility] Chloride [Moles/Vol] 106 mmol/L Normal 98-107 [facility] Comment on above: Order Comment: Bleed , altereed mental status Performed By: #### 0 0071, 97857, 05336, 04100, 37906 ####[facility] [place] [address], [facility] CO2 [Moles/Vol] 27 mmol/L Normal 21-31 The [facility] Comment on above: Order Comment: Bleed , altereed mental status Performed By: #### 0 0071, 54298, 93545, 73933, 97616 ####[facility] [place] [address], [facility] Creatinine [Mass/Vol] 1.07 mg/dL Normal 0.60-1.20 [facility] Comment on above: Order Comment: Bleed , altereed mental status Performed By: #### 0 0071, 29638, 07441, 35199, 00605 ####[facility] [place] [address], [facility] eGFR- 59 ml/min/1.73sq m Abnormal >60 [facility] Comment on above: Order Comment: Bleed , altereed mental status Result Comment: Calc ulation may not be valid for patients over 70 years Performed By: #### 0 0071, 91923, 49666, 21762, 64670 ####[facility] [place] [address], [facility] eGFR- non- 49 ml/min/1.73sq m Abnormal >60 [facility] Comment on above: Order Comment: Bleed , altereed mental status Result Comment: Calc ulation may not be valid for patients over 70 years Performed By: #### 0 0071, 27715, 50422, 62344, 76235 ####[facility] [place] [address], [facility] Glucose [Mass/Vol] 100 mg/dL Normal 70-100 [facility] Comment on above: Order Comment: Bleed , altereed mental status Performed By: #### 0 0071, 29745, 84491, 70588, 65665 ####[facility] [place] [address], [place] Potassium [Moles/Vol] 4.0 mmol/L Normal 3.5-5.1 [facility] Comment on above: Order Comment: Bleed , altereed mental status Performed By: #### 0 0071, 46776, 31190, 13034, 44369 ####[facility] [place] [address], [place] Sodium [Moles/Vol] 139 mmol/L Normal 136-145 [facility] Comment on above: Order Comment: Bleed , altereed mental status Performed By: #### 0 0071, [id number], 68243, 03985, 47584 ####[facility] [place] [address], [place] Urea nitrogen [Mass/Vol] 15 mg/dL Normal 7-25 [facility] Comment on above: Order Comment: Bleed , altereed mental status Performed By: #### 0 0071, 46790, 79127, 20159, 35848 ####[facility] [facility] BNP (B-TYPE NATRIURETIC PEPT KAELA)on 04-06-2022 Natriuretic peptide B (Bld) [Mass/Vol] 487 pg/mL High 0-100 The [facility] Comment on above: Order Comment: Yes: Add to Previous draw if able Result Comment: Give n the appropriate clinical setting a BNP result of >100 pg/mL indicates congestive heart failure. Performed By: #### 8 [id number] #### [facility] [address] [place] [address], [facility] CBC W/DIFFon 04-06-2022 ABS IMM GRANS 0.5 10*3/uL High 0.0-0.2 The [facility] Comment on above: Order Comment: No: D o not add to previous draw Performed By: #### 8 [id number] #### [facility] [address] [place] [address], [facility] ABS NEUTROPHILS 18.4 10*3/uL High 1.6-7.6 The [facility] Comment on above: Order Comment: No: D o not add to previous draw Performed By: #### 8 [id number] #### [facility] [address] [place] [address], [facility] Basophils (Bld) [#/Vol] 0.1 10*3/uL Normal 0.0-0.2 [facility] Comment on above: Order Comment: No: D o not add to previous draw Performed By: #### 8 [id number] #### [facility] [address] [place] [address], [facility] Basophils/100 WBC (Bld) 0.5 % Normal 0.0-1.0 [facility] Comment on above: Order Comment: No: D o not add to previous draw Performed By: #### 8 [id number] #### [facility] [address] Eosinophils (Bld) [#/Vol] 0.0 10*3/uL Normal 0.0-0.5 [facility] Comment on above: Order Comment: No: D o not add to previous draw Performed By: #### 8 [id number] #### [facility] [address] [place] [address], [facility] Eosinophils/100 WBC (Bld) 0.0 % Normal 0.0-6.0 [facility] Comment on above: Order Comment: No: D o not add to previous draw Performed By: #### 8 [id number] #### [facility] [address] Erythrocyte distribution width (RBC) [Ratio] 19.4 % High 11.5-15.0 [facility] Comment on above: Order Comment: No: D o not add to previous draw Performed By: #### 8 [id number] #### [facility] [address] [facility] Hematocrit (Bld) [Volume fraction] 28.6 % Low 36.0-45.0 [facility] Comment on above: Order Comment: No: D o not add to previous draw Performed By: #### 8 [id number] #### [facility] [address] [facility] Hemoglobin (Bld) [Mass/Vol] 8.8 g/dL Low 12.0-15.0 [facility] Comment on above: Order Comment: No: D o not add to previous draw Performed By: #### 8 [id number] #### [facility] [address] [place] [address], [facility] IMMATURE GRANS 2.3 % High 0.0-1.0 The [facility] Comment on above: Order Comment: No: D o not add to previous draw Performed By: #### 8 [id number] #### [facility] [address] [facility] [address] Lymphocytes (Bld) [#/Vol] 1.5 10*3/uL Normal 1.2-4.0 [facility] Comment on above: Order Comment: No: D o not add to previous draw Performed By: #### 8 [id number] #### [facility] [address] [place] [address], [facility] Lymphocytes/100 WBC (Bld) 7.2 % Low 20.0-45.0 [facility] Comment on above: Order Comment: No: D o not add to previous draw Performed By: #### 8 [id number] #### [facility] [address] [place] [address], [facility] MCH (RBC) [Entitic mass] 30.1 pg Normal 27.0-33.0 [facility] Comment on above: Order Comment: No: D o not add to previous draw Performed By: #### 8 [id number] #### [facility] [address] [place] [address], [facility] MCHC (RBC) [Mass/Vol] 30.8 g/dL Low 32.0-35.0 [facility] Comment on above: Order Comment: No: D o not add to previous draw Performed By: #### 8 [id number] #### [facility] [address] [place] [address], [facility] MCV (RBC) [Entitic vol] 97.9 fL Normal 82.0-98.0 [facility] Comment on above: Order Comment: No: D o not add to previous draw Performed By: #### 8 [id number] #### [facility] [address] [place] [address], [facility] Monocytes (Bld) [#/Vol] 0.3 10*3/uL Normal 0.1-1.0 [facility] Comment on above: Order Comment: No: D o not add to previous draw Performed By: #### 8 [id number] #### [facility] [address] [place] [address], [facility] MONOS 1.6 % Low 5.0-12.0 [facility] Comment on above: Order Comment: No: D o not add to previous draw Performed By: #### 8 [id number] #### [facility] [address] [place] [id number], [facility] Neutrophils/100 WBC (Bld) 88.4 % High 40.0-72.0 [facility] Comment on above: Order Comment: No: D o not add to previous draw Performed By: #### 8 [id number] #### [facility] [address] [place] [address], [facility] Nucleated RBC/100 WBC (Bld) [Ratio] 0 % Normal 0-0 [facility] Comment on above: Order Comment: No: D o not add to previous draw Performed By: #### 8 [id number] #### [facility] [address] [facility] [place] [id number], [facility] PLAT CNT 279 10*3/uL Normal 150-400 [facility] Comment on above: Order Comment: No: D o not add to previous draw Performed By: #### 8 [id number] #### [facility] [address] [facility] [address], [facility] RBC (Bld) [#/Vol] 2.92 10*6/uL Low 3.80-5.00 The [facility] Comment on above: Order Comment: No: D o not add to previous draw Performed By: #### 8 [id number] #### [facility] [address] [facility] [place] [address], [place] WBC (Bld) [#/Vol] 20.84 10*3/uL High 4.00-10.60 [facility] Comment on above: Order Comment: No: D o not add to previous draw Performed By: #### 8 [id number] #### [facility] [address] [place] [id number], [facility] DIGOXINon 04-06-2022 Digoxin [Mass/Vol] 1.0 ng/mL Normal 0.7-2.0 The [facility] Comment on above: Performed By: #### 0 0071, 58127, 84717, 05923, 28391 ####[facility] [place] [address], [place] LIPASE BLOODon 04-06-2022 LIPASE 68 Units/L Normal 11-82 [facility] Comment on above: Performed By: #### 0 0071, 52536, 94031, 17584, 25551 ####[facility] [place] [address], [place] MAGNESIUM BLOODon 04-06-2022 Magnesium [Mass/Vol] 1.6 mg/dL Low 1.9-2.7 [facility] Comment on above: Order Comment: Bleed , altereed mental status Performed By: #### 0 0071, 90982, 42170, 44779, 39907 ####[facility] [place] [address], [place] PHOSPHORUS BLOODon 2 Phosphate [Mass/Vol] 3.5 mg/dL Normal 2.5-5.0 [facility] Comment on above: Order Comment: No: D o not add to previous draw Performed By: #### 8 [id number] #### [facility] [address] [place] [address], [place] POC GLUCOSE LABon 04-06-2022 Glucose [Mass/Vol] 121 mg/dL High 70-100 [facility] Comment on above: Performed By: #### 3 0313 #### [facility] [address] [place] [address], [place] Glucose [Mass/Vol] 171 mg/dL High 70-100 [facility] Comment on above: Performed By: #### 8 [id number] #### [facility] [address] [place] [address], [place] Glucose [Mass/Vol] 178 mg/dL High 70-100 [facility] Comment on above: Performed By: #### 8 [id number] #### [facility] [address] [facility] [place] [address], [facility] Glucose [Mass/Vol] 102 mg/dL High 70-100 [facility] Comment on above: Performed By: #### 5 0608 #### [facility] [address] APTTon 04-05-2022 aPTT Coag (Bld) [Time] 29.7 s Normal 25.0-35.0 [facility] Comment on above: Order Comment: No: D o not add to previous draw Result Comment: ALL RESULTS MUST BE INTERPRETED WITH RESPECT TO BLOOD DRAWING ARTIFACT OR DILUTION ERROR OF ANTICOAGULANT AT THE TIME OF SAMPLING. THE APTT SHOULD NOT BE USED TO MONITOR UNFRACTIONATED HEPARIN THERAPY, THIS LABORATORY NO LONGER HAS AN ESTABLISHED THERAPEUTIC RANGE BASED ON THE APTT. IT IS RECOMMENDED THAT THE [facility] - HEPARIN ASSAY (ANTI-XA ACTIVITY) BE USED FOR THIS PURPOSE. Performed By: #### 8 [id number] #### [facility] [address] [place] [address], [facility] CBC W/DIFFon 04-05-2022 ABS IMM GRANS 0.4 10*3/uL High 0.0-0.2 The [facility] Comment on above: Order Comment: No: D o not add to previous draw Performed By: #### 8 [id number] #### [facility] [address] [place] [address], [facility] ABS NEUTROPHILS 19.7 10*3/uL High 1.6-7.6 The [facility] Comment on above: Order Comment: No: D o not add to previous draw Performed By: #### 8 [id number] #### [facility] [address] [place] [address], [facility] ANISO Moderate Normal [facility] Comment on above: Order Comment: No: D o not add to previous draw Performed By: #### 8 [id number] #### [facility] [address] [place] [address], [facility] Basophils (Bld) [#/Vol] 0.2 10*3/uL Normal 0.0-0.2 [facility] Comment on above: Order Comment: No: D o not add to previous draw Performed By: #### 8 [id number] #### [facility] [address] [place] [address], [facility] Basophils/100 WBC (Bld) 0.7 % Normal 0.0-1.0 [facility] Comment on above: Order Comment: No: D o not add to previous draw Performed By: #### 8 [id number] #### [facility] [address] [place] [id number], [facility] Eosinophils (Bld) [#/Vol] 0.0 10*3/uL Normal 0.0-0.5 [facility] Comment on above: Order Comment: No: D o not add to previous draw Performed By: #### 8 [id number] #### [facility] [address] [place] [address], [facility] Eosinophils/100 WBC (Bld) 0.1 % Normal 0.0-6.0 [facility] Comment on above: Order Comment: No: D o not add to previous draw Performed By: #### 8 [id number] #### [facility] [address] [facility] [place] [address], [facility] Erythrocyte distribution width (RBC) [Ratio] 19.5 % High 11.5-15.0 [facility] Comment on above: Order Comment: No: D o not add to previous draw Performed By: #### 8 [id number] #### [facility] [address] [place] [address], [facility] Hematocrit (Bld) [Volume fraction] 27.8 % Low 36.0-45.0 [facility] Comment on above: Order Comment: No: D o not add to previous draw Performed By: #### 8 [id number] #### [facility] [address] [place] [address], [facility] Hemoglobin (Bld) [Mass/Vol] 8.6 g/dL Low 12.0-15.0 [facility] Comment on above: Order Comment: No: D o not add to previous draw Performed By: #### 8 [id number] #### [facility] [address] [facility] [place] [address], [facility] IMMATURE GRANS 2.0 % High 0.0-1.0 The [facility] Comment on above: Order Comment: No: D o not add to previous draw Performed By: #### 8 [id number] #### [facility] [address] [facility] [place] [address], [facility] Lymphocytes (Bld) [#/Vol] 1.4 10*3/uL Normal 1.2-4.0 [facility] Comment on above: Order Comment: No: D o not add to previous draw Performed By: #### 8 [id number] #### [facility] [address] [place] [address], [facility] Lymphocytes/100 WBC (Bld) 6.5 % Low 20.0-45.0 [facility] Comment on above: Order Comment: No: D o not add to previous draw Performed By: #### 8 [id number] #### [facility] [address] [place] [address], [facility] MCH (RBC) [Entitic mass] 30.3 pg Normal 27.0-33.0 [facility] Comment on above: Order Comment: No: D o not add to previous draw Performed By: #### 8 [id number] #### [facility] [address] [place] [address], [facility] MCHC (RBC) [Mass/Vol] 30.9 g/dL Low 32.0-35.0 [facility] Comment on above: Order Comment: No: D o not add to previous draw Performed By: #### 8 [id number] #### [facility] [address] [place] [address], [facility] MCV (RBC) [Entitic vol] 97.9 fL Normal 82.0-98.0 [facility] Comment on above: Order Comment: No: D o not add to previous draw Performed By: #### 8 [id number] #### [facility] [address] [place] [address], [facility] Monocytes (Bld) [#/Vol] 0.4 10*3/uL Normal 0.1-1.0 [facility] Comment on above: Order Comment: No: D o not add to previous draw Performed By: #### 8 [id number] #### [facility] [address] [place] [address], [facility] MONOS 1.9 % Low 5.0-12.0 [facility] Comment on above: Order Comment: No: D o not add to previous draw Performed By: #### 8 [id number] #### [facility] [address] [place] [address], [facility] Neutrophils/100 WBC (Bld) 88.8 % High 40.0-72.0 [facility] Comment on above: Order Comment: No: D o not add to previous draw Performed By: #### 8 [id number] #### [facility] [address] [place] [address], [facility] Nucleated RBC/100 WBC (Bld) [Ratio] 0 % Normal 0-0 [facility] Comment on above: Order Comment: No: D o not add to previous draw Performed By: #### 8 [id number] #### [facility] [address] [place] [address], [facility] PLAT CNT 303 10*3/uL Normal 150-400 [facility] Comment on above: Order Comment: No: D o not add to previous draw Performed By: #### 8 [id number] #### [facility] [address] [place] [address], [facility] POIK Slight Normal [facility] Comment on above: Order Comment: No: D o not add to previous draw Performed By: #### 8 [id number] #### [facility] [address] [place] [address], [facility] POLY Slight Normal [facility] Comment on above: Order Comment: No: D o not add to previous draw Performed By: #### 8 [id number] #### [facility] [address] [place] [address], [facility] RBC (Bld) [#/Vol] 2.84 10*6/uL Low 3.80-5.00 [facility] Comment on above: Order Comment: No: D o not add to previous draw Performed By: #### 8 [id number] #### [facility] [address] [place] [address], [facility] WBC (Bld) [#/Vol] 22.20 10*3/uL High 4.00-10.60 [facility] Comment on above: Order Comment: No: D o not add to previous draw Performed By: #### 8 [id number] #### [facility] [address] [place] [address], [facility] COMP METABOLIC PANELon 04-05 Albumin [Mass/Vol] 2.5 g/dL Low 3.5-5.7 [facility] Comment on above: Order Comment: The A ptima SARS-CoV-2 assay is a nucleic acid amplification test intended for the qualitative detection of RNA from SARS-CoV-2 isolated and purified from nasopharyngeal ([employer]),oropharyngeal (OP), nasal swab, sputum, and bronchoalveolar lavage (BAL) specimens from patients with signs and symptoms of infection who are suspected of COVID-19. Results are for the identification of SARS-CoV-2 RNA. The SARS-CoV-2 RNA is generally detectable during the acute phase of infection. The Aptima SARS-CoV-2 Assay on the [employer] system is intended for use by laboratory personnel specifically instructed and trained in the operation of the [employer] system. The Aptima SARS-CoV-2 assay is only for use under the Food and Drug Administration Emergency Use Authorization. Testing is limited to laboratories certified under the Clinical Laboratory Improvement Amendments of 1988 (CLIA), 42 U.S.C. ???263a, to perform high complexity tests. Not Detected: Not detected does not preclude SARS-CoV-2 infection and should not be used as the sole basis for patient management decisions. Not detected results must be combined with clinical observations, patient history, and epidemiological information. Performed By: #### 3 [id number] #### [facility] [address] [facility] ALKALINE PHOSPH 100 IU/L Normal 34-104 [facility] Comment on above: Order Comment: The A ptima SARS-CoV-2 assay is a nucleic acid amplification test intended for the qualitative detection of RNA from SARS-CoV-2 isolated and purified from nasopharyngeal ([employer]),oropharyngeal (OP), nasal swab, sputum, and bronchoalveolar lavage (BAL) specimens from patients with signs and symptoms of infection who are suspected of COVID-19. Results are for the identification of SARS-CoV-2 RNA. The SARS-CoV-2 RNA is generally detectable during the acute phase of infection. The Aptima SARS-CoV-2 Assay on the [employer] system is intended for use by laboratory personnel specifically instructed and trained in the operation of the [employer] system. The Aptima SARS-CoV-2 assay is only for use under the Food and Drug Administration Emergency Use Authorization. Testing is limited to laboratories certified under the Clinical Laboratory Improvement Amendments of 1988 (CLIA), 42 U.S.C. ???263a, to perform high complexity tests. Not Detected: Not detected does not preclude SARS-CoV-2 infection and should not be used as the sole basis for patient management decisions. Not detected results must be combined with clinical observations, patient history, and epidemiological information. Performed By: #### 3 [id number] #### [facility] [address] [place] [address], [facility] ALT [Catalytic activity/Vol] 13 U/L Normal 7-52 [facility] Comment on above: Order Comment: The A ptima SARS-CoV-2 assay is a nucleic acid amplification test intended for the qualitative detection of RNA from SARS-CoV-2 isolated and purified from nasopharyngeal ([employer]),oropharyngeal (OP), nasal swab, sputum, and bronchoalveolar lavage (BAL) specimens from patients with signs and symptoms of infection who are suspected of COVID-19. Results are for the identification of SARS-CoV-2 RNA. The SARS-CoV-2 RNA is generally detectable during the acute phase of infection. The Aptima SARS-CoV-2 Assay on the [employer] system is intended for use by laboratory personnel specifically instructed and trained in the operation of the [employer] system. The Aptima SARS-CoV-2 assay is only for use under the Food and Drug Administration Emergency Use Authorization. Testing is limited to laboratories certified under the Clinical Laboratory Improvement Amendments of 1988 (CLIA), 42 U.S.C. ???263a, to perform high complexity tests. Not Detected: Not detected does not preclude SARS-CoV-2 infection and should not be used as the sole basis for patient management decisions. Not detected results must be combined with clinical observations, patient history, and epidemiological information. Performed By: #### 3 1792 #### [address] AST [Catalytic activity/Vol] 12 U/L Low 13-39 [facility] Comment on above: Order Comment: The A ptima SARS-CoV-2 assay is a nucleic acid amplification test intended for the qualitative detection of RNA from SARS-CoV-2 isolated and purified from nasopharyngeal ([employer]),oropharyngeal (OP), nasal swab, sputum, and bronchoalveolar lavage (BAL) specimens from patients with signs and symptoms of infection who are suspected of COVID-19. Results are for the identification of SARS-CoV-2 RNA. The SARS-CoV-2 RNA is generally detectable during the acute phase of infection. The Aptima SARS-CoV-2 Assay on the [employer] system is intended for use by laboratory personnel specifically instructed and trained in the operation of the [employer] system. The Aptima SARS-CoV-2 assay is only for use under the Food and Drug Administration Emergency Use Authorization. Testing is limited to laboratories certified under the Clinical Laboratory Improvement Amendments of 1988 (CLIA), 42 U.S.C. ???263a, to perform high complexity tests. Not Detected: Not detected does not preclude SARS-CoV-2 infection and should not be used as the sole basis for patient management decisions. Not detected results must be combined with clinical observations, patient history, and epidemiological information. Performed By: #### 3 [id number] #### [facility] [address] [place] [address], [facility] Bilirubin [Mass/Vol] 0.8 mg/dL Normal 0.3-1.0 [facility] Comment on above: Order Comment: The A ptima SARS-CoV-2 assay is a nucleic acid amplification test intended for the qualitative detection of RNA from SARS-CoV-2 isolated and purified from nasopharyngeal ([employer]),oropharyngeal (OP), nasal swab, sputum, and bronchoalveolar lavage (BAL) specimens from patients with signs and symptoms of infection who are suspected of COVID-19. Results are for the identification of SARS-CoV-2 RNA. The SARS-CoV-2 RNA is generally detectable during the acute phase of infection. The Aptima SARS-CoV-2 Assay on the [employer] system is intended for use by laboratory personnel specifically instructed and trained in the operation of the [employer] system. The Aptima SARS-CoV-2 assay is only for use under the Food and Drug Administration Emergency Use Authorization. Testing is limited to laboratories certified under the Clinical Laboratory Improvement Amendments of 1988 (CLIA), 42 U.S.C. ???263a, to perform high complexity tests. Not Detected: Not detected does not preclude SARS-CoV-2 infection and should not be used as the sole basis for patient management decisions. Not detected results must be combined with clinical observations, patient history, and epidemiological information. Performed By: #### 3 179 #### [facility] [address] [place] [address], [facility] Calcium [Mass/Vol] 8.1 mg/dL Low 8.6-10.3 [facility] Comment on above: Order Comment: The A ptima SARS-CoV-2 assay is a nucleic acid amplification test intended for the qualitative detection of RNA from SARS-CoV-2 isolated and purified from nasopharyngeal ([employer]),oropharyngeal (OP), nasal swab, sputum, and bronchoalveolar lavage (BAL) specimens from patients with signs and symptoms of infection who are suspected of COVID-19. Results are for the identification of SARS-CoV-2 RNA. The SARS-CoV-2 RNA is generally detectable during the acute phase of infection. The Aptima SARS-CoV-2 Assay on the [employer] system is intended for use by laboratory personnel specifically instructed and trained in the operation of the [employer] system. The Aptima SARS-CoV-2 assay is only for use under the Food and Drug Administration Emergency Use Authorization. Testing is limited to laboratories certified under the Clinical Laboratory Improvement Amendments of 1988 (CLIA), 42 U.S.C. ???263a, to perform high complexity tests. Not Detected: Not detected does not preclude SARS-CoV-2 infection and should not be used as the sole basis for patient management decisions. Not detected results must be combined with clinical observations, patient history, and epidemiological information. Performed By: #### 3 [id number] #### [address] Chloride [Moles/Vol] 106 mmol/L Normal 98-107 [facility] Comment on above: Order Comment: The A ptima SARS-CoV-2 assay is a nucleic acid amplification test intended for the qualitative detection of RNA from SARS-CoV-2 isolated and purified from nasopharyngeal ([employer]),oropharyngeal (OP), nasal swab, sputum, and bronchoalveolar lavage (BAL) specimens from patients with signs and symptoms of infection who are suspected of COVID-19. Results are for the identification of SARS-CoV-2 RNA. The SARS-CoV-2 RNA is generally detectable during the acute phase of infection. The Aptima SARS-CoV-2 Assay on the [employer] system is intended for use by laboratory personnel specifically instructed and trained in the operation of the [employer] system. The Aptima SARS-CoV-2 assay is only for use under the Food and Drug Administration Emergency Use Authorization. Testing is limited to laboratories certified under the Clinical Laboratory Improvement Amendments of 1988 (CLIA), 42 U.S.C. ???263a, to perform high complexity tests. Not Detected: Not detected does not preclude SARS-CoV-2 infection and should not be used as the sole basis for patient management decisions. Not detected results must be combined with clinical observations, patient history, and epidemiological information. Performed By: #### 3 [id number] #### [facility] [address] [place] [address], [facility] CO2 [Moles/Vol] 26 mmol/L Normal 21-31 [facility] Comment on above: Order Comment: The A ptima SARS-CoV-2 assay is a nucleic acid amplification test intended for the qualitative detection of RNA from SARS-CoV-2 isolated and purified from nasopharyngeal ([employer]),oropharyngeal (OP), nasal swab, sputum, and bronchoalveolar lavage (BAL) specimens from patients with signs and symptoms of infection who are suspected of COVID-19. Results are for the identification of SARS-CoV-2 RNA. The SARS-CoV-2 RNA is generally detectable during the acute phase of infection. The Aptima SARS-CoV-2 Assay on the [employer] system is intended for use by laboratory personnel specifically instructed and trained in the operation of the [employer] system. The Aptima SARS-CoV-2 assay is only for use under the Food and Drug Administration Emergency Use Authorization. Testing is limited to laboratories certified under the Clinical Laboratory Improvement Amendments of 1988 (CLIA), 42 U.S.C. ???263a, to perform high complexity tests. Not Detected: Not detected does not preclude SARS-CoV-2 infection and should not be used as the sole basis for patient management decisions. Not detected results must be combined with clinical observations, patient history, and epidemiological information. Performed By: #### 3 [id number] #### [facility] [address] [place] [address], [facility] Creatinine [Mass/Vol] 1.24 mg/dL High 0.60-1.20 [facility] Comment on above: Order Comment: The A ptima SARS-CoV-2 assay is a nucleic acid amplification test intended for the qualitative detection of RNA from SARS-CoV-2 isolated and purified from nasopharyngeal ([employer]),oropharyngeal (OP), nasal swab, sputum, and bronchoalveolar lavage (BAL) specimens from patients with signs and symptoms of infection who are suspected of COVID-19. Results are for the identification of SARS-CoV-2 RNA. The SARS-CoV-2 RNA is generally detectable during the acute phase of infection. The Aptima SARS-CoV-2 Assay on the [employer] system is intended for use by laboratory personnel specifically instructed and trained in the operation of the [employer] system. The Aptima SARS-CoV-2 assay is only for use under the Food and Drug Administration Emergency Use Authorization. Testing is limited to laboratories certified under the Clinical Laboratory Improvement Amendments of 1988 (CLIA), 42 U.S.C. ???263a, to perform high complexity tests. Not Detected: Not detected does not preclude SARS-CoV-2 infection and should not be used as the sole basis for patient management decisions. Not detected results must be combined with clinical observations, patient history, and epidemiological information. Performed By: #### 3 1792 #### [facility] [address] eGFR- 50 ml/min/1.73sq m Abnormal >60 [facility] Comment on above: Order Comment: The A ptima SARS-CoV-2 assay is a nucleic acid amplification test intended for the qualitative detection of RNA from SARS-CoV-2 isolated and purified from nasopharyngeal ([employer]),oropharyngeal (OP), nasal swab, sputum, and bronchoalveolar lavage (BAL) specimens from patients with signs and symptoms of infection who are suspected of COVID-19. Results are for the identification of SARS-CoV-2 RNA. The SARS-CoV-2 RNA is generally detectable during the acute phase of infection. The Aptima SARS-CoV-2 Assay on the [employer] system is intended for use by laboratory personnel specifically instructed and trained in the operation of the [employer] system. The Aptima SARS-CoV-2 assay is only for use under the Food and Drug Administration Emergency Use Authorization. Testing is limited to laboratories certified under the Clinical Laboratory Improvement Amendments of 1988 (CLIA), 42 U.S.C. ???263a, to perform high complexity tests. Not Detected: Not detected does not preclude SARS-CoV-2 infection and should not be used as the sole basis for patient management decisions. Not detected results must be combined with clinical observations, patient history, and epidemiological information. Result Comment: Calc ulation may not be valid for patients over 70 years Performed By: #### 3 [id number] #### [facility] [address] [facility] eGFR- non- 42 ml/min/1.73sq m Abnormal >60 [facility] Comment on above: Order Comment: The A ptima SARS-CoV-2 assay is a nucleic acid amplification test intended for the qualitative detection of RNA from SARS-CoV-2 isolated and purified from nasopharyngeal ([employer]),oropharyngeal (OP), nasal swab, sputum, and bronchoalveolar lavage (BAL) specimens from patients with signs and symptoms of infection who are suspected of COVID-19. Results are for the identification of SARS-CoV-2 RNA. The SARS-CoV-2 RNA is generally detectable during the acute phase of infection. The Aptima SARS-CoV-2 Assay on the [employer] system is intended for use by laboratory personnel specifically instructed and trained in the operation of the [employer] system. The Aptima SARS-CoV-2 assay is only for use under the Food and Drug Administration Emergency Use Authorization. Testing is limited to laboratories certified under the Clinical Laboratory Improvement Amendments of 1988 (CLIA), 42 U.S.C. ???263a, to perform high complexity tests. Not Detected: Not detected does not preclude SARS-CoV-2 infection and should not be used as the sole basis for patient management decisions. Not detected results must be combined with clinical observations, patient history, and epidemiological information. Result Comment: Calc ulation may not be valid for patients over 70 years Performed By: #### 3 [id number] #### [facility] [address] [place] [address], [facility] Glucose [Mass/Vol] 95 mg/dL Normal 70-100 [facility] Comment on above: Order Comment: The A ptima SARS-CoV-2 assay is a nucleic acid amplification test intended for the qualitative detection of RNA from SARS-CoV-2 isolated and purified from nasopharyngeal ([employer]),oropharyngeal (OP), nasal swab, sputum, and bronchoalveolar lavage (BAL) specimens from patients with signs and symptoms of infection who are suspected of COVID-19. Results are for the identification of SARS-CoV-2 RNA. The SARS-CoV-2 RNA is generally detectable during the acute phase of infection. The Aptima SARS-CoV-2 Assay on the [employer] system is intended for use by laboratory personnel specifically instructed and trained in the operation of the [employer] system. The Aptima SARS-CoV-2 assay is only for use under the Food and Drug Administration Emergency Use Authorization. Testing is limited to laboratories certified under the Clinical Laboratory Improvement Amendments of 1988 (CLIA), 42 U.S.C. ???263a, to perform high complexity tests. Not Detected: Not detected does not preclude SARS-CoV-2 infection and should not be used as the sole basis for patient management decisions. Not detected results must be combined with clinical observations, patient history, and epidemiological information. Performed By: #### 3 1792 #### [address] Potassium [Moles/Vol] 4.1 mmol/L Normal 3.5-5.1 [facility] Comment on above: Order Comment: The A ptima SARS-CoV-2 assay is a nucleic acid amplification test intended for the qualitative detection of RNA from SARS-CoV-2 isolated and purified from nasopharyngeal ([employer]),oropharyngeal (OP), nasal swab, sputum, and bronchoalveolar lavage (BAL) specimens from patients with signs and symptoms of infection who are suspected of COVID-19. Results are for the identification of SARS-CoV-2 RNA. The SARS-CoV-2 RNA is generally detectable during the acute phase of infection. The Aptima SARS-CoV-2 Assay on the [employer] system is intended for use by laboratory personnel specifically instructed and trained in the operation of the [employer] system. The Aptima SARS-CoV-2 assay is only for use under the Food and Drug Administration Emergency Use Authorization. Testing is limited to laboratories certified under the Clinical Laboratory Improvement Amendments of 1988 (CLIA), 42 U.S.C. ???263a, to perform high complexity tests. Not Detected: Not detected does not preclude SARS-CoV-2 infection and should not be used as the sole basis for patient management decisions. Not detected results must be combined with clinical observations, patient history, and epidemiological information. Performed By: #### 3 1792 #### [facility] [address] Protein [Mass/Vol] 5.0 g/dL Low 6.0-8.3 [facility] Comment on above: Order Comment: The A ptima SARS-CoV-2 assay is a nucleic acid amplification test intended for the qualitative detection of RNA from SARS-CoV-2 isolated and purified from nasopharyngeal ([employer]),oropharyngeal (OP), nasal swab, sputum, and bronchoalveolar lavage (BAL) specimens from patients with signs and symptoms of infection who are suspected of COVID-19. Results are for the identification of SARS-CoV-2 RNA. The SARS-CoV-2 RNA is generally detectable during the acute phase of infection. The Aptima SARS-CoV-2 Assay on the [employer] system is intended for use by laboratory personnel specifically instructed and trained in the operation of the [employer] system. The Aptima SARS-CoV-2 assay is only for use under the Food and Drug Administration Emergency Use Authorization. Testing is limited to laboratories certified under the Clinical Laboratory Improvement Amendments of 1988 (CLIA), 42 U.S.C. ???263a, to perform high complexity tests. Not Detected: Not detected does not preclude SARS-CoV-2 infection and should not be used as the sole basis for patient management decisions. Not detected results must be combined with clinical observations, patient history, and epidemiological information. Performed By: #### 3 1792 #### [facility] [address] [place] [address], [facility] Sodium [Moles/Vol] 138 mmol/L Normal 136-145 [facility] Comment on above: Order Comment: The A ptima SARS-CoV-2 assay is a nucleic acid amplification test intended for the qualitative detection of RNA from SARS-CoV-2 isolated and purified from nasopharyngeal ([employer]),oropharyngeal (OP), nasal swab, sputum, and bronchoalveolar lavage (BAL) specimens from patients with signs and symptoms of infection who are suspected of COVID-19. Results are for the identification of SARS-CoV-2 RNA. The SARS-CoV-2 RNA is generally detectable during the acute phase of infection. The Aptima SARS-CoV-2 Assay on the [employer] system is intended for use by laboratory personnel specifically instructed and trained in the operation of the [employer] system. The Aptima SARS-CoV-2 assay is only for use under the Food and Drug Administration Emergency Use Authorization. Testing is limited to laboratories certified under the Clinical Laboratory Improvement Amendments of 1988 (CLIA), 42 U.S.C. ???263a, to perform high complexity tests. Not Detected: Not detected does not preclude SARS-CoV-2 infection and should not be used as the sole basis for patient management decisions. Not detected results must be combined with clinical observations, patient history, and epidemiological information. Performed By: #### 3 [id number] #### [facility] [address] Urea nitrogen [Mass/Vol] 24 mg/dL Normal 7-25 [facility] Comment on above: Order Comment: The A ptima SARS-CoV-2 assay is a nucleic acid amplification test intended for the qualitative detection of RNA from SARS-CoV-2 isolated and purified from nasopharyngeal ([employer]),oropharyngeal (OP), nasal swab, sputum, and bronchoalveolar lavage (BAL) specimens from patients with signs and symptoms of infection who are suspected of COVID-19. Results are for the identification of SARS-CoV-2 RNA. The SARS-CoV-2 RNA is generally detectable during the acute phase of infection. The Aptima SARS-CoV-2 Assay on the [employer] system is intended for use by laboratory personnel specifically instructed and trained in the operation of the [employer] system. The Aptima SARS-CoV-2 assay is only for use under the Food and Drug Administration Emergency Use Authorization. Testing is limited to laboratories certified under the Clinical Laboratory Improvement Amendments of 1988 (CLIA), 42 U.S.C. ???263a, to perform high complexity tests. Not Detected: Not detected does not preclude SARS-CoV-2 infection and should not be used as the sole basis for patient management decisions. Not detected results must be combined with clinical observations, patient history, and epidemiological information. Performed By: #### 3 [id number] #### [facility] [address] [place] [id number], [facility] HEMOGLOBINon 04-05-2022 Hemoglobin (Bld) [Mass/Vol] 8.9 g/dL Low 12.0-15.0 [facility] Comment on above: Order Comment: No: D o not add to previous draw Performed By: #### 8 [id number] #### [facility] [address] [place] [address], [facility] Hemoglobin (Bld) [Mass/Vol] 10.1 g/dL Low 12.0-15.0 [facility] Comment on above: Order Comment: No: D o not add to previous draw Performed By: #### 8 [id number] #### [facility] [address] [place] [address], [facility] MAGNESIUM BLOODon 04-05-2022 Magnesium [Mass/Vol] 1.6 mg/dL Low 1.9-2.7 [facility] Comment on above: Order Comment: The A ptima SARS-CoV-2 assay is a nucleic acid amplification test intended for the qualitative detection of RNA from SARS-CoV-2 isolated and purified from nasopharyngeal ([employer]),oropharyngeal (OP), nasal swab, sputum, and bronchoalveolar lavage (BAL) specimens from patients with signs and symptoms of infection who are suspected of COVID-19. Results are for the identification of SARS-CoV-2 RNA. The SARS-CoV-2 RNA is generally detectable during the acute phase of infection. The Aptima SARS-CoV-2 Assay on the [employer] system is intended for use by laboratory personnel specifically instructed and trained in the operation of the [employer] system. The Aptima SARS-CoV-2 assay is only for use under the Food and Drug Administration Emergency Use Authorization. Testing is limited to laboratories certified under the Clinical Laboratory Improvement Amendments of 1988 (CLIA), 42 U.S.C. ???263a, to perform high complexity tests. Not Detected: Not detected does not preclude SARS-CoV-2 infection and should not be used as the sole basis for patient management decisions. Not detected results must be combined with clinical observations, patient history, and epidemiological information. Performed By: #### 3 1792 #### [facility] [address] [place] [address], [facility] PHOSPHORUS BLOODon 2 Phosphate [Mass/Vol] 3.5 mg/dL Normal 2.5-5.0 [facility] Comment on above: Order Comment: The A ptima SARS-CoV-2 assay is a nucleic acid amplification test intended for the qualitative detection of RNA from SARS-CoV-2 isolated and purified from nasopharyngeal ([employer]),oropharyngeal (OP), nasal swab, sputum, and bronchoalveolar lavage (BAL) specimens from patients with signs and symptoms of infection who are suspected of COVID-19. Results are for the identification of SARS-CoV-2 RNA. The SARS-CoV-2 RNA is generally detectable during the acute phase of infection. The Aptima SARS-CoV-2 Assay on the [employer] system is intended for use by laboratory personnel specifically instructed and trained in the operation of the [employer] system. The Aptima SARS-CoV-2 assay is only for use under the Food and Drug Administration Emergency Use Authorization. Testing is limited to laboratories certified under the Clinical Laboratory Improvement Amendments of 1988 (CLIA), 42 U.S.C. ???263a, to perform high complexity tests. Not Detected: Not detected does not preclude SARS-CoV-2 infection and should not be used as the sole basis for patient management decisions. Not detected results must be combined with clinical observations, patient history, and epidemiological information. Performed By: #### 3 [id number] #### [facility] [address] [place] [address], [facility] POC GLUCOSE LABon 04-05-2022 Glucose [Mass/Vol] 115 mg/dL High 70-100 [facility] Comment on above: Performed By: #### 5 [id number] #### [facility] [address] [place] [address], [facility] Glucose [Mass/Vol] 119 mg/dL High 70-100 [facility] Comment on above: Performed By: #### 8 [id number] #### [facility] [address] [place] [address], [facility] Glucose [Mass/Vol] 145 mg/dL High 70-100 [facility] Comment on above: Performed By: #### 8 [id number] #### [facility] [address] [place] [address], [place] Glucose [Mass/Vol] 108 mg/dL High 70-100 [facility] Comment on above: Performed By: #### 8 [id number] #### [facility] [address] [place] [address], [place] Glucose [Mass/Vol] 117 mg/dL High 70-100 [facility] Comment on above: Performed By: #### 8 [id number] #### [facility] [address] [place] [address], [facility] PROTHROMBIN TIMEon 2 INR Coag (PPP) [Relative time] 1.13 {INR} Normal 0.91-1.16 [facility] Comment on above: Order Comment: No: D o not add to previous draw Result Comment: ACCC P RECOMMENDED INR FOR WARFARIN THERAPY ------ ------- CONDITION INR PROPHYLAXIS OF VENOUS THROMBOSIS 2-3 (HIGH-RISK SURGERY) TREATMENT OF VENOUS THROMBOSIS 2-3 TREATMENT OF PULMONARY EMBOLISM 2-3 PREVENTION OF SYSTEMIC EMBOLISM: 2-3 ACUTE MYOCARDIAL INFARCTION TISSUE HEART VALVES VALVULAR HEART DISEASE ATRIAL FIBRILLATION RECURRENT SYSTEMIC EMBOLISM MECHANICAL HEART VALVE 2.5-3.5 FROM: ORAL ANTICOAGULANTS. MECHANISM OF ACTION, CLINICAL EFFECTIVENESS, AND OPTIMAL THERAPEUTIC RANGE. CHEST 1995;108:231S-246S. Performed By: #### 8 [id number] #### [facility] [address] [place] [address], [facility] PT Coag (PPP) [Time] 14.5 s Normal 12.3-14.8 [facility] Comment on above: Order Comment: No: D o not add to previous draw Result Comment: ALL RESULTS MUST BE INTERPRETED WITH RESPECT TO BLOOD DRAWING ARTIFACT OR DILUTION ERROR OF ANTICOAGULANT AT THE TIME OF SAMPLING. Performed By: #### 8 [id number] #### [facility] [address] [place] [address], [facility] APTTon 04-04-2022 aPTT Coag (Bld) [Time] 31.2 s Normal 25.0-35.0 [facility] Comment on above: Order Comment: No: D o not add to previous draw Result Comment: ALL RESULTS MUST BE INTERPRETED WITH RESPECT TO BLOOD DRAWING ARTIFACT OR DILUTION ERROR OF ANTICOAGULANT AT THE TIME OF SAMPLING. THE APTT SHOULD NOT BE USED TO MONITOR UNFRACTIONATED HEPARIN THERAPY, THIS LABORATORY NO LONGER HAS AN ESTABLISHED THERAPEUTIC RANGE BASED ON THE APTT. IT IS RECOMMENDED THAT THE [facility] - HEPARIN ASSAY (ANTI-XA ACTIVITY) BE USED FOR THIS PURPOSE. Performed By: #### 8 [id number] #### [facility] [address] [place] [address], [facility] ARTERIAL BLOOD GAS WITH ICAo n 04-04-2022 BASE EXCESS 0 mmol/L Normal -2-3 [facility] Comment on above: Performed By: #### 8 [id number] #### [facility] [address] [place] [address], [facility] DELIVERY SYSTEMS NASAL CANNULA Normal [facility] Comment on above: Performed By: #### 8 [id number] #### [facility] [address] [place] [address], [facility] HCO3 (Bld) [Moles/Vol] 26 mmol/L Normal 21-28 [facility] Comment on above: Performed By: #### 8 [id number] #### [facility] [address] [place] [address], [facility] IONIZED CALCIUM 1.18 mmol/L Normal 1.13-1.32 [facility] Comment on above: Performed By: #### 8 [id number] #### [facility] [address] [place] [address], [facility] LPM 2.0 LPM Normal [facility] Comment on above: Performed By: #### 8 [id number] #### [facility] [address] [place] [address], [facility] Oxygen (Bld) [Partial pressure] 74 mm[Hg] Low 83-108 [facility] Comment on above: Performed By: #### 8 [id number] #### [facility] [address] [place] [address], [facility] Oxygen saturation in Blood 95.4 % Normal 94.0-97.0 [facility] Comment on above: Performed By: #### 8 [id number] #### [facility] [address] [place] [address], [facility] PCO2 45 mmHg Normal 35-45 [facility] Comment on above: Performed By: #### 8 [id number] #### [facility] [address] [place] [address], [facility] pH (Bld) 7.37 [pH] Normal 7.35-7.45 [facility] Comment on above: Performed By: #### 8 [id number] #### [facility] [address] [place] [address], [facility] CBC W/DIFFon 04-04-2022 ABS IMM GRANS 0.7 10*3/uL High 0.0-0.2 The [facility] Comment on above: Order Comment: No: D o not add to previous draw Performed By: #### 8 [id number] #### [facility] [address] [place] [address], [facility] ABS NEUTROPHILS 19.9 10*3/uL High 1.6-7.6 The [facility] Comment on above: Order Comment: No: D o not add to previous draw Performed By: #### 8 [id number] #### [facility] [address] [place] [address], [facility] ANISO Moderate Normal [facility] Comment on above: Order Comment: No: D o not add to previous draw Performed By: #### 8 [id number] #### [facility] [address] [place] [address], [facility] Basophils (Bld) [#/Vol] 0.2 10*3/uL Normal 0.0-0.2 [facility] Comment on above: Order Comment: No: D o not add to previous draw Performed By: #### 8 [id number] #### [facility] [address] [place] [address], [facility] Basophils/100 WBC (Bld) 0.7 % Normal 0.0-1.0 [facility] Comment on above: Order Comment: No: D o not add to previous draw Performed By: #### 8 [id number] #### [facility] [address] [place] [address], [facility] Eosinophils (Bld) [#/Vol] 0.0 10*3/uL Normal 0.0-0.5 [facility] Comment on above: Order Comment: No: D o not add to previous draw Performed By: #### 8 [id number] #### [facility] [address] [place] [address], [facility] Eosinophils/100 WBC (Bld) 0.1 % Normal 0.0-6.0 [facility] Comment on above: Order Comment: No: D o not add to previous draw Performed By: #### 8 [id number] #### [facility] [address] [place] [address], [place] Erythrocyte distribution width (RBC) [Ratio] 20.2 % High 11.5-15.0 [facility] Comment on above: Order Comment: No: D o not add to previous draw Performed By: #### 8 [id number] #### [facility] [address] [place] [address], [facility] Hematocrit (Bld) [Volume fraction] 28.0 % Low 36.0-45.0 [facility] Comment on above: Order Comment: No: D o not add to previous draw Performed By: #### 8 [id number] #### [facility] [address] [place] [address], [facility] Hemoglobin (Bld) [Mass/Vol] 8.8 g/dL Low 12.0-15.0 [facility] Comment on above: Order Comment: No: D o not add to previous draw Performed By: #### 8 [id number] #### [facility] [address] [place] [id number], [facility] IMMATURE GRANS 3.0 % High 0.0-1.0 The [facility] Comment on above: Order Comment: No: D o not add to previous draw Performed By: #### 8 [id number] #### [facility] [address] [facility] [place] [address], [facility] Lymphocytes (Bld) [#/Vol] 1.1 10*3/uL Low 1.2-4.0 [facility] Comment on above: Order Comment: No: D o not add to previous draw Performed By: #### 8 [id number] #### [facility] [address] [place] [address], [facility] Lymphocytes/100 WBC (Bld) 5.1 % Low 20.0-45.0 [facility] Comment on above: Order Comment: No: D o not add to previous draw Performed By: #### 8 [id number] #### [facility] [address] [place] [id number], [facility] MCH (RBC) [Entitic mass] 29.9 pg Normal 27.0-33.0 [facility] Comment on above: Order Comment: No: D o not add to previous draw Performed By: #### 8 [id number] #### [facility] [address] [address], [facility] MCHC (RBC) [Mass/Vol] 31.4 g/dL Low 32.0-35.0 [facility] Comment on above: Order Comment: No: D o not add to previous draw Performed By: #### 8 [id number] #### [facility] [address] [place] [address], [facility] MCV (RBC) [Entitic vol] 95.2 fL Normal 82.0-98.0 [facility] Comment on above: Order Comment: No: D o not add to previous draw Performed By: #### 8 [id number] #### [facility] [address] [place] [address], [facility] Monocytes (Bld) [#/Vol] 0.4 10*3/uL Normal 0.1-1.0 [facility] Comment on above: Order Comment: No: D o not add to previous draw Performed By: #### 8 [id number] #### [facility] [address] [place] [address], [facility] MONOS 2.0 % Low 5.0-12.0 [facility] Comment on above: Order Comment: No: D o not add to previous draw Performed By: #### 8 [id number] #### [facility] [address] [place] [address], [facility] Neutrophils/100 WBC (Bld) 89.1 % High 40.0-72.0 [facility] Comment on above: Order Comment: No: D o not add to previous draw Performed By: #### 8 [id number] #### [facility] [address] [place] [address], [facility] Nucleated RBC/100 WBC (Bld) [Ratio] 0 % Normal 0-0 [facility] Comment on above: Order Comment: No: D o not add to previous draw Performed By: #### 8 [id number] #### [facility] [address] [place] [address], [facility] PLAT CNT 303 10*3/uL Normal 150-400 The [facility] Comment on above: Order Comment: No: D o not add to previous draw Performed By: #### 8 [id number] #### [facility] [address] [place] [address], [facility] POIK Slight Normal [facility] Comment on above: Order Comment: No: D o not add to previous draw Performed By: #### 8 [id number] #### [facility] [address] [place] [address], [facility] POLY Slight Normal [facility] Comment on above: Order Comment: No: D o not add to previous draw Performed By: #### 8 [id number] #### [facility] [address] [place] [address], [facility] RBC (Bld) [#/Vol] 2.94 10*6/uL Low 3.80-5.00 [facility] Comment on above: Order Comment: No: D o not add to previous draw Performed By: #### 8 [id number] #### [facility] [address] [place] [address], [facility] WBC (Bld) [#/Vol] 22.35 10*3/uL High 4.00-10.60 [facility] Comment on above: Order Comment: No: D o not add to previous draw Performed By: #### 8 [id number] #### [facility] [address] [place] [id number], [facility] COMP METABOLIC PANELon 04-04 Albumin [Mass/Vol] 2.4 g/dL Low 3.5-5.7 [facility] Comment on above: Order Comment: No: D o not add to previous draw Performed By: #### 8 [id number] #### [facility] [address] [place] [address], [place] ALKALINE PHOSPH 92 IU/L Normal 34-104 The [facility] Comment on above: Order Comment: No: D o not add to previous draw Performed By: #### 8 [id number] #### [facility] [address] [place] [address], [place] ALT [Catalytic activity/Vol] 12 U/L Normal 7-52 [facility] Comment on above: Order Comment: No: D o not add to previous draw Performed By: #### 8 [id number] #### [facility] [address] [place] [address], [place] AST [Catalytic activity/Vol] 10 U/L Low 13-39 [facility] Comment on above: Order Comment: No: D o not add to previous draw Performed By: #### 8 [id number] #### [facility] [address] [place] [address], [place] Bilirubin [Mass/Vol] 1.0 mg/dL Normal 0.3-1.0 [facility] Comment on above: Order Comment: No: D o not add to previous draw Performed By: #### 8 [id number] #### [facility] [address] [place] [address], [place] Calcium [Mass/Vol] 7.7 mg/dL Low 8.6-10.3 The [facility] Comment on above: Order Comment: No: D o not add to previous draw Performed By: #### 8 [id number] #### [facility] [address] [place] [address], [place] Chloride [Moles/Vol] 110 mmol/L High 98-107 [facility] Comment on above: Order Comment: No: D o not add to previous draw Performed By: #### 8 [id number] #### [facility] [address] [place] [address], [place] CO2 [Moles/Vol] 24 mmol/L Normal 21-31 The [facility] Comment on above: Order Comment: No: D o not add to previous draw Performed By: #### 8 [id number] #### [facility] [address] [place] [address], [place] Creatinine [Mass/Vol] 1.18 mg/dL Normal 0.60-1.20 [facility] Comment on above: Order Comment: No: D o not add to previous draw Performed By: #### 8 [id number] #### [facility] [address] [place] [address], [place] eGFR- 53 ml/min/1.73sq m Abnormal >60 [facility] Comment on above: Order Comment: No: D o not add to previous draw Result Comment: Calc ulation may not be valid for patients over 70 years Performed By: #### 8 [id number] #### [facility] [address] [place] [address], [place] eGFR- non- 44 ml/min/1.73sq m Abnormal >60 [facility] Comment on above: Order Comment: No: D o not add to previous draw Result Comment: Calc ulation may not be valid for patients over 70 years Performed By: #### 8 [id number] #### [facility] [address] [place] [address], [place] Glucose [Mass/Vol] 90 mg/dL Normal 70-100 The [facility] Comment on above: Order Comment: No: D o not add to previous draw Performed By: #### 8 [id number] #### [facility] [address] [place] [address], [place] Potassium [Moles/Vol] 4.3 mmol/L Normal 3.5-5.1 [facility] Comment on above: Order Comment: No: D o not add to previous draw Performed By: #### 8 [id number] #### [facility] [address] [place] [address], [place] Protein [Mass/Vol] 4.8 g/dL Low 6.0-8.3 [facility] Comment on above: Order Comment: No: D o not add to previous draw Performed By: #### 8 [id number] #### [facility] [address] [place] [address], [facility] Sodium [Moles/Vol] 140 mmol/L Normal 136-145 [facility] Comment on above: Order Comment: No: D o not add to previous draw Performed By: #### 8 [id number] #### [facility] [address] [place] [id number], [facility] Urea nitrogen [Mass/Vol] 37 mg/dL High 7-25 [facility] Comment on above: Order Comment: No: D o not add to previous draw Performed By: #### 8 [id number] #### [facility] [address] Endoscopy Reporton 2 Endoscopy Report MR#: [id number] [facility] Pt. Name: María Elena Tafoya Surgery Date: 04/03/2022 Room #: [facility] [id number] Date of : 1940 PROCEDURE NOTE ATTENDING: Elizabeth Olivo M.D. PROCEDURE PERFORMED: ERCP with biliary stent placement and controlled bleeding from site of sphincterotomy. MEDICATIONS: General anesthesia administered by Anesthesia team. INDICATIONS: Post sphincterotomy GI bleeding. PROCEDURE IN DETAIL: After obtaining the informed consent, which included the risks, benefits, alternatives, and complications; complications including bleeding, perforation, and reaction to medication and pancreatitis, the patient was placed in the semiprone position after receiving general anesthesia administered by anesthesia team after which the Olympus video side-viewing duodenoscope was introduced through the mouth, down to the esophagus, stomach, then to the 1st and 2nd part of the duodenum with no difficulties. Old blood was noted within the stomach and clot with fresh blood was noted at the level of the papilla. This was cleaned and irrigated with water. With the use of RX-44 sphincterotome loaded with a 0.035 inch guidewire, the common bile duct was cannulated selectively. Contrast was injected. The filling defect was noted within the distal common bile duct. The sphincterotome was then removed over the guidewire and the site of sphincterotomy was injected with 14 mL of 1:10,000 epinephrine and then was flushed with another 6 mL of epinephrine. Another 10 mL of epinephrine were flushed inside the bile duct without injecting it. Injector needle was then removed and 12 x 15 mm injecting below retrieval balloon catheter was then advanced over the guidewire into the common bile duct. The common bile duct was swept a few times and blood clots were removed from the common bile duct. No filling defect was noted after removing the blood clots. No active bleeding was identified. The retrieval balloon catheter was removed over the guidewire and a 10 mm x 40 mm fully covered self-expandable metallic biliary stent was placed into the common bile duct to topple at the site of the bleeding at the level of the sphincterotomy. Two Endoclips were deployed at the site of sphincterotomy. Complete hemostasis was achieved. Bile was noted flowing through the biliary stent. The scope was then withdrawn and the patient tolerated the procedure well and sent to the recovery room in stable condition. The procedure was performed under fluoroscopic guidance and I did interpretation of the fluoroscopic images. IMPRESSION: Post sphincterotomy and GI bleeding was identified. This was successfully treated with injection of epinephrine placing metallic fully covered self-expandable 10 mm x 40 mm biliary stent to topple at the site followed by clipping site of sphincterotomy with two Endoclips. Complete hemostasis was achieved. PLAN: 1. Keep the patient n.p.o. and hold anticoagulation. 2. Follow H and H and transfuse PRBC for hemoglobin less than 7. 3. Consider PPI b.i.d. 4. We will consider to reobserve the patient in medical ICU. 5. We will plan for common bile duct stent removal. Electronically Signed by: Elizabeth Olivo M.D. 04/27/2022 10:51 A Elizabeth Olivo M.D. Date Dict: 04/03/2022/01:39 P/Elizabeth Olivo M.D. Date Trans: 04/04/2022 04:28 A/mmo [id number] cc: Bennie Albright M.D. [address], [place] [address] Normal [facility] HEMOGLOBINon 04-04-2022 Hemoglobin (Bld) [Mass/Vol] 9.4 g/dL Low 12.0-15.0 [facility] Comment on above: Order Comment: No: D o not add to previous draw Performed By: #### 8 [id number] #### [facility] [address] [facility] [place] [address], [facility] Hemoglobin (Bld) [Mass/Vol] 9.5 g/dL Low 12.0-15.0 [facility] Comment on above: Order Comment: No: D o not add to previous draw Performed By: #### 5 [id number] #### [facility] [address] [place] [address], [facility] Hemoglobin (Bld) [Mass/Vol] 8.9 g/dL Low 12.0-15.0 [facility] Comment on above: Order Comment: No: D o not add to previous draw Performed By: #### 8 [id number] #### [facility] [address] [facility] [place] [address], [facility] MAGNESIUM BLOODon 04-04-2022 Magnesium [Mass/Vol] 1.6 mg/dL Low 1.9-2.7 [facility] Comment on above: Order Comment: No: D o not add to previous draw Performed By: #### 8 [id number] #### [facility] [address] [facility] [place] [address], [facility] PHOSPHORUS BLOODon Phosphate [Mass/Vol] 3.8 mg/dL Normal 2.5-5.0 [facility] Comment on above: Order Comment: No: D o not add to previous draw Performed By: #### 8 [id number] #### [facility] [address] [facility] [place] [address], [facility] POC GLUCOSE LABon 04-04-2022 Glucose [Mass/Vol] 123 mg/dL High 70-100 [facility] Comment on above: Performed By: #### 5 0608 #### [facility] [address] [place] [address], [place] Glucose [Mass/Vol] 152 mg/dL High 70-100 The [facility] Comment on above: Performed By: #### 8 [id number] ####[facility] [place] [address], [place] Glucose [Mass/Vol] 111 mg/dL High 70-100 [facility] Comment on above: Performed By: #### 8 [id number] #### [facility] [address] [place] [address], [place] Glucose [Mass/Vol] 109 mg/dL High 70-100 [facility] Comment on above: Performed By: #### 8 [id number] #### [facility] [address] [place] [address], [place] Glucose [Mass/Vol] 94 mg/dL Normal 70-100 [facility] Comment on above: Performed By: #### 8 [id number] ####[facility] [place] [address], [place] PROTHROMBIN TIMEon INR Coag (PPP) [Relative time] 1.18 {INR} High 0.91-1.16 [facility] Comment on above: Order Comment: No: D o not add to previous draw Result Comment: ACCC P RECOMMENDED INR FOR WARFARIN THERAPY ------ ------- CONDITION INR PROPHYLAXIS OF VENOUS THROMBOSIS 2-3 (HIGH-RISK SURGERY) TREATMENT OF VENOUS THROMBOSIS 2-3 TREATMENT OF PULMONARY EMBOLISM 2-3 PREVENTION OF SYSTEMIC EMBOLISM: 2-3 ACUTE MYOCARDIAL INFARCTION TISSUE HEART VALVES VALVULAR HEART DISEASE ATRIAL FIBRILLATION RECURRENT SYSTEMIC EMBOLISM MECHANICAL HEART VALVE 2.5-3.5 FROM: ORAL ANTICOAGULANTS. MECHANISM OF ACTION, CLINICAL EFFECTIVENESS, AND OPTIMAL THERAPEUTIC RANGE. CHEST 1995;108:231S-246S. Performed By: #### 8 [id number] #### [address] PT Coag (PPP) [Time] 14.9 s High 12.3-14.8 [facility] Comment on above: Order Comment: No: D o not add to previous draw Result Comment: ALL RESULTS MUST BE INTERPRETED WITH RESPECT TO BLOOD DRAWING ARTIFACT OR DILUTION ERROR OF ANTICOAGULANT AT THE TIME OF SAMPLING. Performed By: #### 8 [id number] #### [address] UFH HEPARIN ASSAYon 04-04-20 UNFRACTIONATED HEPARIN 0.11 IU/mL Critically low 0.30-0.70 [facility] Comment on above: Result Comment: RESU LTS CHECKED AND CALLED. ACCURATELY READ BACK BY CHAZ LAWLER RN @ [phone] Rivaroxaban and Apixaban will interfere with the anti Xa assay used to monitor UFH and LMWH. Performed By: #### 8 [id number] #### [facility] [address] US GALLBLADDERon 04-04-2022 US GALLBLADDER [facility] Department of Radiology [address] [place] [id number] ======== Patient Name: MARÍA ELENA TAFOYA : 1940 Sex: F Age: Race: NA Pt. Location: [id number] Patient Status: I Ordered Date: 04/03/2022 8:05:00 AM Completed Date: 04/04/2022 07:19 AM Requesting Provider: LOU RANDHAWA Attending Provider: IRA PAT Report Copy To: Signs & Symptoms: RUQ/Abdominal Pain History: See Comments Comments: Stones Exam: US GALLBLADDER ======== US GALLBLADDER 04/04/2022 7:19 AM SIGNS AND SYMPTOMS: RUQ/Abdominal Pain TECHNOLOGIST COMMENTS: QUESTION FOR THE RADIOLOGIST: Stones TECHNIQUE: Limited abdominal ultrasound. COMPARISON: none FINDINGS: The gallbladder appeared normal in size and shape. The gallbladder wall appeared thickened and edematous. Echogenic foci were noted dependently within the gallbladder lumen. Bob's sign was said to be negative. The bile duct measured 14 mm and is known to contain a Wallstent. Focal echogenicity within bile duct visualized on image 32. IMPRESSION: Small calculi or sludge within gallbladder lumen. Wall thickening without dilatation may represent chronic cholecystitis. Suspect retained bile duct calculi. Electronically signed: Brooke Verduzco. Transcribed by: [email or web address], User Resident: Electronically Signed by: BROOKE VERDUZCO @ 04/04/2022 07:46 AM Normal [facility] Comment on above: Order Comment: Stone s VENOUS BLOOD GASon 2 BASE EXCESS 2 mmol/L Normal [facility] Comment on above: Performed By: #### 8 [id number] #### [address] [place] [address], [facility] HCO3 (Bld) [Moles/Vol] 27 mmol/L Normal [facility] Comment on above: Performed By: #### 8 [id number] #### [facility] [address] [place] [address], [facility] Oxygen (Bld) [Partial pressure] 72 mm[Hg] Critically high 35-45 The [facility] Comment on above: Performed By: #### 8 [id number] #### [facility] [address] [place] [address], [facility] Oxygen saturation in Blood 93.8 % High 65.0-75.0 [facility] Comment on above: Performed By: #### 8 [id number] #### [facility] [address] [place] [address], [facility] PCO2 42 mmHg Normal [facility] Comment on above: Performed By: #### 8 [id number] #### [facility] [address] [place] [address], [facility] pH (Bld) 7.41 [pH] Normal 7.31-7.41 [facility] Comment on above: Performed By: #### 8 [id number] #### [facility] [address] [place] [address], [facility] APTTon 04-03-2022 aPTT Coag (Bld) [Time] 32.6 s Normal 25.0-35.0 [facility] Comment on above: Order Comment: Yes: Add to Previous draw if ablept is in or Result Comment: ALL RESULTS MUST BE INTERPRETED WITH RESPECT TO BLOOD DRAWING ARTIFACT OR DILUTION ERROR OF ANTICOAGULANT AT THE TIME OF SAMPLING. THE APTT SHOULD NOT BE USED TO MONITOR UNFRACTIONATED HEPARIN THERAPY, THIS LABORATORY NO LONGER HAS AN ESTABLISHED THERAPEUTIC RANGE BASED ON THE APTT. IT IS RECOMMENDED THAT THE UFH - HEPARIN ASSAY (ANTI-XA ACTIVITY) BE USED FOR THIS PURPOSE. Performed By: #### 8 [id number] #### [facility] [address] [place] [address], [facility] ARTERIAL BLOOD GAS WITH ICAo n 04-03-2022 BASE EXCESS 2 mmol/L Normal -2-3 [facility] Comment on above: Performed By: #### 8 [id number] #### [facility] [address] [place] [address], [facility] [employer] [place] Normal [facility] Comment on above: Performed By: #### 8 [id number] #### [facility] [address] [place] [address], [facility] HCO3 (Bld) [Moles/Vol] 25 mmol/L Normal 21-28 [facility] Comment on above: Performed By: #### 8 [id number] #### [facility] [address] [place] [address], [facility] IONIZED CALCIUM 1.24 mmol/L Normal 1.13-1.32 [facility] Comment on above: Performed By: #### 8 [id number] #### [facility] [address] [place] [address], [facility] LPM 4.0 LPM Normal [facility] Comment on above: Performed By: #### 8 [id number] #### [facility] [address] [place] [address], [place] Oxygen (Bld) [Partial pressure] 76 mm[Hg] Low 83-108 [facility] Comment on above: Performed By: #### 8 [id number] #### [facility] [address] [place] [address], [facility] Oxygen saturation in Blood 94.0 % Normal 94.0-97.0 [facility] Comment on above: Performed By: #### 8 [id number] #### [facility] [address] [place] [address], [place] PCO2 34 mmHg Low 35-45 [facility] Comment on above: Performed By: #### 8 [id number] #### [facility] [address] [place] [address], [place] pH (Bld) 7.48 [pH] High 7.35-7.45 The [facility] Comment on above: Performed By: #### 8 [id number] #### [facility] [address] [place] [address], [facility] BASIC METABOLIC PANELon 05-1 Calcium [Mass/Vol] 8.5 mg/dL Low 8.6-10.3 [facility] Comment on above: Order Comment: No: D o not add to previous draw Performed By: #### 8 [id number] #### [facility] [facility] [address] [place] [address], [facility] Chloride [Moles/Vol] 108 mmol/L High 98-107 [facility] Comment on above: Order Comment: No: D o not add to previous draw Performed By: #### 8 [id number] #### [facility] [address] [place] [address], [facility] CO2 [Moles/Vol] 25 mmol/L Normal 21-31 [facility] Comment on above: Order Comment: No: D o not add to previous draw Performed By: #### 8 [id number] #### [facility] [address] [place] [address], [facility] Creatinine [Mass/Vol] 0.96 mg/dL Normal 0.60-1.20 [facility] Comment on above: Order Comment: No: D o not add to previous draw Performed By: #### 8 [id number] #### [facility] [address] [place] [address], [facility] eGFR- non- 56 ml/min/1.73sq m Abnormal >60 [facility] Comment on above: Order Comment: No: D o not add to previous draw Result Comment: Calc ulation may not be valid for patients over 70 years Performed By: #### 8 [id number] #### [facility] [address] [place] [id number], [facility] GFR/1.73 sq M.predicted among blacks MDRD (S/P/Bld) [Vol rate/Area] mL/min/{1.73_m2} Normal >60 [facility] Comment on above: Order Comment: No: D o not add to previous draw Result Comment: Calc ulation may not be valid for patients over 70 years Performed By: #### 8 [id number] #### [facility] [address] [place] [address], [place] Glucose [Mass/Vol] 122 mg/dL High 70-100 [facility] Comment on above: Order Comment: No: D o not add to previous draw Performed By: #### 8 [id number] #### [facility] [address] [place] [address], [place] Potassium [Moles/Vol] 5.5 mmol/L High 3.5-5.1 [facility] Comment on above: Order Comment: No: D o not add to previous draw Performed By: #### 8 [id number] #### [facility] [address] [place] [address], [place] Sodium [Moles/Vol] 137 mmol/L Normal 136-145 [facility] Comment on above: Order Comment: No: D o not add to previous draw Performed By: #### 8 [id number] #### [facility] [address] [place] [address], [place] Urea nitrogen [Mass/Vol] 30 mg/dL High 7-25 [facility] Comment on above: Order Comment: No: D o not add to previous draw Performed By: #### 8 [id number] #### [facility] [address] [place] [address], [place] BLOOD STOOL GUAIACon 022 BLD STOOL GUAIAC Positive Abnormal NEGATIVE [facility] Comment on above: Order Comment: No: D o not add to previous draw Performed By: #### 2 [id number] #### [facility] [address] [place] [address], [place] CALCIUM IONIZED CBGLon 04-03 IONIZED CALCIUM 1.18 mmol/L Normal 1.12-1.30 [facility] Comment on above: Performed By: #### 8 [id number] #### [facility] [address] [facility]. [address] CBC COMPLETE BLOOD COUNTon 0 04-03-2022 Erythrocyte distribution width (RBC) [Ratio] 17.9 % High 11.5-15.0 [facility] Comment on above: Order Comment: No: D o not add to previous draw Performed By: #### 5 [id number] #### [facility] [address] [facility] [address] Hematocrit (Bld) [Volume fraction] 34.4 % Low 36.0-45.0 [facility] Comment on above: Order Comment: No: D o not add to previous draw Performed By: #### 5 [id number] #### [facility] [address] [facility] [address] Hemoglobin (Bld) [Mass/Vol] 10.6 g/dL Low 12.0-15.0 [facility] Comment on above: Order Comment: No: D o not add to previous draw Performed By: #### 5 [id number] #### [facility] [address] [facility] [place] [address], [facility] MCH (RBC) [Entitic mass] 30.3 pg Normal 27.0-33.0 [facility] Comment on above: Order Comment: No: D o not add to previous draw Performed By: #### 5 [id number] #### [facility] [address] [place] [address], [facility] MCHC (RBC) [Mass/Vol] 30.8 g/dL Low 32.0-35.0 [facility] Comment on above: Order Comment: No: D o not add to previous draw Performed By: #### 5 [id number] #### [facility] [address] [place] [address], [facility] MCV (RBC) [Entitic vol] 98.3 fL High 82.0-98.0 [facility] Comment on above: Order Comment: No: D o not add to previous draw Performed By: #### 5 [id number] #### [facility] [address] [place] [address], [facility] Nucleated RBC/100 WBC (Bld) [Ratio] 0 % Normal 0-0 [facility] Comment on above: Order Comment: No: D o not add to previous draw Performed By: #### 5 [id number] #### [facility] [address] [place] [address], [facility] PLAT CNT 396 10*3/uL Normal 150-400 [facility] Comment on above: Order Comment: No: D o not add to previous draw Performed By: #### 5 [id number] #### [facility] [address] [place] [address], [facility] RBC (Bld) [#/Vol] 3.50 10*6/uL Low 3.80-5.00 [facility] Comment on above: Order Comment: No: D o not add to previous draw Performed By: #### 5 [id number] #### [facility] [address] [facility] [address], [facility] WBC (Bld) [#/Vol] 34.46 10*3/uL High 4.00-10.60 [facility] Comment on above: Order Comment: No: D o not add to previous draw Performed By: #### 5 [id number] #### [facility] [address] [place] [address], [facility] CT BRAIN WO CONTRASTon 04-03 CT BRAIN WO CONTRAST [facility] Department of Radiology [address] [place] [address] [id number] ======== Patient Name: MARÍA ELENA TAFOYA : 1940 Sex: F Age: Race: NA Pt. Location: [place] [address] Patient Status: I Ordered Date: 04/03/2022 8:30:00 PM Completed Date: 04/03/2022 08:52 PM Requesting Provider: MARY LOU EDMONDS Attending Provider: IRA PAT Report Copy To: Signs & Symptoms: Bleed History: See Comments Comments: Bleed, altereed mental status Exam: CT BRAIN WO CONTRAST ======== CT BRAIN WO CONTRAST 04/03/2022 8:52 PM CLINICAL INDICATIONS: Bleed TECHNOLOGIST COMMENTS: rn states pt is having right facial droop and right side weakness QUESTION FOR THE RADIOLOGIST: Bleed alterpipe mental status PROTOCOL: Axial CT images of the head were obtained without IV contrast. TECHNIQUE: Multidetector CT axial slices of the head without IV contrast. Multiplanar reformats were performed and viewed on a separate workstation and reviewed to further define anatomy and possible pathology. All CT scans at this facility use dose modulation, iterative reconstruction, and/or weight based dosing when appropriate to reduce radiation dose to as low as reasonably achievable COMPARISON: None. FINDINGS: No territorial region of diminished riley-white differentiation. No intracranial hemorrhage. No sign of ventricular outflow obstruction. Mild to moderate global parenchymal volume loss, compensatory enlargement of the subarachnoid spaces, ventricular system. Mild heterogeneity throughout the deep deep and periventricular white matter, most often seen in setting of chronic microvascular ischemia. Intracranial vascular calcifications. Unremarkable appearance of the: Orbits, temporal bone structures, paranasal sinuses, scalp soft tissues IMPRESSION: No convincing acute intracranial abnormality, by CT. If there is persistent concern for ischemia, consider MR. Electronically signed: Darrel Chang. Transcribed by: [email or web address], User Resident: Electronically Signed by: DARREL CHANG @ 04/03/2022 09:21 PM Normal [facility] Comment on above: Order Comment: dione Noe mental status ERCPon 04-03-2022 ERCP [facility] Department of Radiology [address] [place] [phone] ======== Patient Name: MARÍA ELENA TAFOYA : 1940 Sex: F Age: Race: NA Pt. Location: [address] [place] [address] Patient Status: I Ordered Date: 04/03/2022 8:50:00 AM Completed Date: 04/03/2022 10:55 AM Requesting Provider: ELIU BRAUN Attending Provider: ELIZABETH OLIVO Report Copy To: Signs & Symptoms: Abdomen Pain Generalized History: Comments: Check Stent Position Exam: ERCP ======== ERCP 04/03/2022 10:55 AM CLINICAL INDICATIONS: Abdomen Pain Generalized TECH COMMENTS:Intra op c-arm, ERCP, EGD with stent placement. Hx of GI bleed Dr. Olivo Fluoro Time: 2 min. 26 sec. mGy: 27.37 Images: 4 C-arm out at 10:55 am COMPARISON: None. FINDINGS: 4 images are submitted for review from ERCP performed by the GI lab. Endoscope is passed in an antegrade fashion, and the tip of the endoscope lies in the second portion of the duodenum. The common bile duct was cannulated and contrast injected in a retrograde direction, opacifying the biliary tree. A Wallstent was placed.. Fluoroscopy Time: 2 minutes and 26 seconds. IMPRESSION: This dictation is for documentation purposes only. Please see the GI procedure note for further details. Electronically signed: Brooke Verduzco. Transcribed by: [email or web address], User Resident: Electronically Signed by: BROOKE VERDUZCO @ 04/03/2022 12:52 PM Normal [facility] Comment on above: Order Comment: Check Stent Position HEMATOCRITon 04-03-2022 Hematocrit (Bld) [Volume fraction] 27.5 % Low 36.0-45.0 [facility] Comment on above: Order Comment: No: D o not add to previous draw Performed By: #### 8 [id number] #### [facility] [address] [place] [address], [facility] Hematocrit (Bld) [Volume fraction] 31.1 % Low 36.0-45.0 [facility] Comment on above: Order Comment: No: D o not add to previous draw Performed By: #### 8 [id number] #### [facility] [address] [place] [address], [facility] Hematocrit (Bld) [Volume fraction] 32.2 % Low 36.0-45.0 [facility] Comment on above: Order Comment: No: D o not add to previous draw Performed By: #### 8 [id number] #### [facility] [address] [place] [address], [facility] HEMOGLOBINon 04-03-2022 Hemoglobin (Bld) [Mass/Vol] 8.8 g/dL Low 12.0-15.0 [facility] Comment on above: Order Comment: No: D o not add to previous draw Performed By: #### 8 [id number] #### [facility] [address] [place] [address], [facility] Hemoglobin (Bld) [Mass/Vol] 9.8 g/dL Low 12.0-15.0 [facility] Comment on above: Order Comment: No: D o not add to previous draw Performed By: #### 8 [id number] #### [facility] [address] [place] [address], [facility] Hemoglobin (Bld) [Mass/Vol] 9.9 g/dL Low 12.0-15.0 [facility] Comment on above: Order Comment: No: D o not add to previous draw Performed By: #### 8 [id number] #### [facility] [address] [place] [address], [place] LIPASE BLOODon 04-03-2022 LIPASE 149 Units/L High 11-82 [facility] Comment on above: Order Comment: No: D o not add to previous draw Performed By: #### 8 [id number] #### [facility] [address] [place] [address], [facility] LIVER BATTERYon 04-03-2022 Albumin [Mass/Vol] 2.8 g/dL Low 3.5-5.7 [facility] Comment on above: Order Comment: No: D o not add to previous draw Performed By: #### 8 [id number] #### [facility] [address] [place] [address], [facility] ALKALINE PHOSPH 137 IU/L High 34-104 [facility] Comment on above: Order Comment: No: D o not add to previous draw Performed By: #### 8 [id number] #### [facility] [address] [place] [address], [place] ALT [Catalytic activity/Vol] 18 U/L Normal 7-52 [facility] Comment on above: Order Comment: No: D o not add to previous draw Performed By: #### 8 [id number] #### [facility] [address] [place] [address], [place] AST [Catalytic activity/Vol] 8 U/L Low 13-39 [facility] Comment on above: Order Comment: No: D o not add to previous draw Performed By: #### 8 [id number] #### [facility] [address] [place] [address], [facility] Bilirubin [Mass/Vol] 1.5 mg/dL High 0.3-1.0 [facility] Comment on above: Order Comment: No: D o not add to previous draw Performed By: #### 8 [id number] #### [facility] [address] [place] [address], [facility] Bilirubin.direct [Mass/Vol] 0.6 mg/dL High 0.0-0.2 [facility] Comment on above: Order Comment: No: D o not add to previous draw Performed By: #### 8 [id number] #### [facility] [address] [place] [address], [facility] Protein [Mass/Vol] 5.8 g/dL Low 6.0-8.3 [facility] Comment on above: Order Comment: No: D o not add to previous draw Performed By: #### 8 [id number] #### [facility] [address] [place] [address], [facility] MAGNESIUM BLOODon 04-03-2022 Magnesium [Mass/Vol] 2.0 mg/dL Normal 1.9-2.7 [facility] Comment on above: Order Comment: No: D o not add to previous draw Performed By: #### 8 [id number] #### [facility] [address] [place] [address], [facility] PHOSPHORUS BLOODon 2 Phosphate [Mass/Vol] 4.2 mg/dL Normal 2.5-5.0 [facility] Comment on above: Order Comment: No: D o not add to previous draw Performed By: #### 8 [id number] #### [facility] [address] [facility] [place] [address], [facility] POC GLUCOSE LABon 04-03-2022 Glucose [Mass/Vol] 121 mg/dL High 70-100 [facility] Comment on above: Performed By: #### 8 [id number] #### [facility] [address] [place] [address], [facility] Glucose [Mass/Vol] 147 mg/dL High 70-100 [facility] Comment on above: Performed By: #### 8 [id number] #### [facility] [address] [place] [address], [facility] Glucose [Mass/Vol] 133 mg/dL High 70-100 [facility] Comment on above: Performed By: #### 3 [id number] #### [facility] [address] [place] [address], [facility] PROTHROMBIN TIMEon 2 INR Coag (PPP) [Relative time] 1.23 {INR} High 0.91-1.16 [facility] Comment on above: Order Comment: Yes: Add to Previous draw if ablePt is in OR Result Comment: ACCC P RECOMMENDED INR FOR WARFARIN THERAPY ------ ------- CONDITION INR PROPHYLAXIS OF VENOUS THROMBOSIS 2-3 (HIGH-RISK SURGERY) TREATMENT OF VENOUS THROMBOSIS 2-3 TREATMENT OF PULMONARY EMBOLISM 2-3 PREVENTION OF SYSTEMIC EMBOLISM: 2-3 ACUTE MYOCARDIAL INFARCTION TISSUE HEART VALVES VALVULAR HEART DISEASE ATRIAL FIBRILLATION RECURRENT SYSTEMIC EMBOLISM MECHANICAL HEART VALVE 2.5-3.5 FROM: ORAL ANTICOAGULANTS. MECHANISM OF ACTION, CLINICAL EFFECTIVENESS, AND OPTIMAL THERAPEUTIC RANGE. CHEST 1995;108:231S-246S. Performed By: #### 8 [id number] #### [facility] [address] [place] [address], [place] PT Coag (PPP) [Time] 15.5 s High 12.3-14.8 [facility] Comment on above: Order Comment: Yes: Add to Previous draw if ablePt is in OR Result Comment: ALL RESULTS MUST BE INTERPRETED WITH RESPECT TO BLOOD DRAWING ARTIFACT OR DILUTION ERROR OF ANTICOAGULANT AT THE TIME OF SAMPLING. Performed By: #### 8 [id number] #### [facility] [address] [place] [address], [facility] RBC'S 1 UNITon 04-03-2022 CROSSMATCH INTERP 1 COMP Normal [facility] Comment on above: Performed By: #### 8 [id number] #### [facility] [address] [place] [address], [facility] PRODUCT CODE 1 E0336 Normal [facility] Comment on above: Performed By: #### 8 [id number] #### [facility] [address] [place] [address], [facility] PRODUCT STATUS 1 RE Normal [facility] Comment on above: Result Comment: Resu lt changed by IF on 04/07/2022 06:43. The previous value was XM. Performed By: #### 8 [id number] #### [facility] [address] [facility] [place] [address], [facility] UNIT ABO 1 A Normal [facility] Comment on above: Performed By: #### 8 [id number] #### [facility] [address] [place] [address], [facility] UNIT ID 1 [id number] Normal [facility] Comment on above: Performed By: #### 8 [id number] #### [facility] [address] [place] [address], [facility] UNIT RH 1 Negative Normal [facility] Comment on above: Performed By: #### 8 [id number] #### [facility] [address] [place] [address], [facility] RBC'S 2 UNITSon 04-03-2022 CROSSMATCH INTERP 1 COMP Normal [facility] Comment on above: Performed By: #### 8 [id number] #### [facility] [address] [place] [address], [place] CROSSMATCH INTERP 2 COMP Normal [facility] Comment on above: Performed By: #### 8 [id number] #### [facility] [address] [place] [address], [facility] PRODUCT CODE 1 E0686 Normal [facility] Comment on above: Performed By: #### 8 [id number] #### [facility] [address] [place] [address], [facility] PRODUCT CODE 2 E0336 Normal [facility] Comment on above: Performed By: #### 8 [id number] #### [facility] [address] [place] [address], [facility] PRODUCT STATUS 1 PT Normal [facility] Comment on above: Result Comment: Resu lt changed by IF on 04/03/2022 10:21. The previous value was XM. Result changed by IF on 04/04/2022 00:30. The previous value was IS. Performed By: #### 8 [id number] #### [facility] [address] [place] [address], [facility] PRODUCT STATUS 2 PT Normal [facility] Comment on above: Result Comment: Resu lt changed by IF on 04/03/2022 10:21. The previous value was XM. Result changed by IF on 04/03/2022 11:27. The previous value was IS. Result changed by IF on 04/03/2022 12:23. The previous value was XM. Result changed by IF on 04/04/2022 00:30. The previous value was IS. Performed By: #### 8 [id number] #### [facility] [address] [place] [address], [place] UNIT ABO 1 A Normal [facility] Comment on above: Performed By: #### 8 [id number] #### [facility] [address] UNIT ABO 2 A Normal [facility] Comment on above: Performed By: #### 8 [id number] #### [facility] [address] UNIT ID 1 [id number] Normal The [facility] Comment on above: Performed By: #### 8 [id number] #### [facility] [address] UNIT ID 2 [id number] Normal [facility] Comment on above: Performed By: #### 8 [id number] #### [facility] [address] UNIT RH 1 Negative Normal [facility] Comment on above: Performed By: #### 8 [id number] #### [facility] [address] UNIT RH 2 Negative Normal [facility] Comment on above: Performed By: #### 8 [id number] #### [facility] [address] [facility]. [address] TYPE AND SCREENon 04-03-2022 ABO INTERPRETATION AB Normal [facility] Comment on above: Performed By: #### 8 [id number] #### [facility] [address] [facility] RH INTERPRETATION Negative Normal [facility] Comment on above: Performed By: #### 8 [id number] #### [facility] [address] [facility] UFH HEPARIN ASSAYon 04-03-20 22 UNFRACTIONATED HEPARIN 0.28 IU/mL Low 0.30-0.70 [facility] Comment on above: Result Comment: Kristy roxaban and Apixaban will interfere with the anti Xa assay used to monitor UFH and LMWH. Performed By: #### 8 [id number] #### [facility] [address] [place] [address], [facility] VENOUS BLOOD GAS W/COOXon BASE EXCESS -3 mmol/L Normal [facility] Comment on above: Order Comment: RESUL TS CHECKED AND CALLED. ACCURATELY READ BACK BY AYANNA PHIPPS Performed By: #### 8 [id number] #### [facility] [address] [place] [address], [facility] COHB 2 % Normal [facility] Comment on above: Order Comment: RESUL TS CHECKED AND CALLED. ACCURATELY READ BACK BY AYANNA PHIPPS Performed By: #### 8 [id number] #### [facility] [address] [place] [address], [facility] HCO3 (Bld) [Moles/Vol] 25 mmol/L Normal [facility] Comment on above: Order Comment: RESUL TS CHECKED AND CALLED. ACCURATELY READ BACK BY AYANNA PHIPPS Performed By: #### 8 [id number] #### [facility] [address] [place] [address], [facility] METHB 0.3 % Normal [facility] Comment on above: Order Comment: RESUL TS CHECKED AND CALLED. ACCURATELY READ BACK BY AYANNA PHIPPS Performed By: #### 8 [id number] #### [facility] [address] [place] [address], [facility] Oxygen (Bld) [Partial pressure] 31 mm[Hg] Low 35-45 [facility] Comment on above: Order Comment: RESUL TS CHECKED AND CALLED. ACCURATELY READ BACK BY AYANNA PHIPPS Performed By: #### 8 [id number] #### [facility] [address] [place] [address], [facility] Oxygen saturation in Blood 38.0 % Low 65.0-75.0 [facility] Comment on above: Order Comment: RESUL TS CHECKED AND CALLED. ACCURATELY READ BACK BY AYANNA PHIPPS Performed By: #### 8 [id number] #### [facility] [address] [place] [address], [facility] PCO2 53 mmHg Normal [facility] Comment on above: Order Comment: RESUL TS CHECKED AND CALLED. ACCURATELY READ BACK BY AYANNA PHIPPS Performed By: #### 8 [id number] #### [facility] [address] [place] [address], [facility] pH (Bld) 7.28 [pH] Low 7.31-7.41 [facility] Comment on above: Order Comment: RESUL TS CHECKED AND CALLED. ACCURATELY READ BACK BY AYANNA PHIPPS Performed By: #### 8 [id number] #### [facility] [address] [place] [address], [facility] THB 9.2 g/dL Normal [facility] Comment on above: Order Comment: RESUL TS CHECKED AND CALLED. ACCURATELY READ BACK BY AYANNA PHIPPS Performed By: #### 8 [id number] #### [facility] [address] BASIC METABOLIC PANELon 05-1 Calcium [Mass/Vol] 8.5 mg/dL Low 8.6-10.3 [facility] Comment on above: Order Comment: The A ptima SARS-CoV-2 assay is a nucleic acid amplification test intended for the qualitative detection of RNA from SARS-CoV-2 isolated and purified from nasopharyngeal ([employer]),oropharyngeal (OP), nasal swab, sputum, and bronchoalveolar lavage (BAL) specimens from patients with signs and symptoms of infection who are suspected of COVID-19. Results are for the identification of SARS-CoV-2 RNA. The SARS-CoV-2 RNA is generally detectable during the acute phase of infection. The Aptima SARS-CoV-2 Assay on the [employer] system is intended for use by laboratory personnel specifically instructed and trained in the operation of the [employer] system. The Aptima SARS-CoV-2 assay is only for use under the Food and Drug Administration Emergency Use Authorization. Testing is limited to laboratories certified under the Clinical Laboratory Improvement Amendments of 1988 (CLIA), 42 U.S.C. ???263a, to perform high complexity tests. Not Detected: Not detected does not preclude SARS-CoV-2 infection and should not be used as the sole basis for patient management decisions. Not detected results must be combined with clinical observations, patient history, and epidemiological information. Performed By: #### 3 [id number] #### [facility] [address] [place] [address], [facility] Chloride [Moles/Vol] 104 mmol/L Normal 98-107 [facility] Comment on above: Order Comment: The A ptima SARS-CoV-2 assay is a nucleic acid amplification test intended for the qualitative detection of RNA from SARS-CoV-2 isolated and purified from nasopharyngeal ([employer]),oropharyngeal (OP), nasal swab, sputum, and bronchoalveolar lavage (BAL) specimens from patients with signs and symptoms of infection who are suspected of COVID-19. Results are for the identification of SARS-CoV-2 RNA. The SARS-CoV-2 RNA is generally detectable during the acute phase of infection. The Aptima SARS-CoV-2 Assay on the [employer] system is intended for use by laboratory personnel specifically instructed and trained in the operation of the [employer] system. The Aptima SARS-CoV-2 assay is only for use under the Food and Drug Administration Emergency Use Authorization. Testing is limited to laboratories certified under the Clinical Laboratory Improvement Amendments of 1988 (CLIA), 42 U.S.C. ???263a, to perform high complexity tests. Not Detected: Not detected does not preclude SARS-CoV-2 infection and should not be used as the sole basis for patient management decisions. Not detected results must be combined with clinical observations, patient history, and epidemiological information. Performed By: #### 3 [id number] #### [facility] [address] [place] [address], [facility] CO2 [Moles/Vol] 23 mmol/L Normal 21-31 [facility] Comment on above: Order Comment: The A ptima SARS-CoV-2 assay is a nucleic acid amplification test intended for the qualitative detection of RNA from SARS-CoV-2 isolated and purified from nasopharyngeal ([employer]),oropharyngeal (OP), nasal swab, sputum, and bronchoalveolar lavage (BAL) specimens from patients with signs and symptoms of infection who are suspected of COVID-19. Results are for the identification of SARS-CoV-2 RNA. The SARS-CoV-2 RNA is generally detectable during the acute phase of infection. The Aptima SARS-CoV-2 Assay on the [employer] system is intended for use by laboratory personnel specifically instructed and trained in the operation of the [employer] system. The Aptima SARS-CoV-2 assay is only for use under the Food and Drug Administration Emergency Use Authorization. Testing is limited to laboratories certified under the Clinical Laboratory Improvement Amendments of 1988 (CLIA), 42 U.S.C. ???263a, to perform high complexity tests. Not Detected: Not detected does not preclude SARS-CoV-2 infection and should not be used as the sole basis for patient management decisions. Not detected results must be combined with clinical observations, patient history, and epidemiological information. Performed By: #### 3 1792 #### [address] Creatinine [Mass/Vol] 1.00 mg/dL Normal 0.60-1.20 [facility] Comment on above: Order Comment: The A ptima SARS-CoV-2 assay is a nucleic acid amplification test intended for the qualitative detection of RNA from SARS-CoV-2 isolated and purified from nasopharyngeal ([employer]),oropharyngeal (OP), nasal swab, sputum, and bronchoalveolar lavage (BAL) specimens from patients with signs and symptoms of infection who are suspected of COVID-19. Results are for the identification of SARS-CoV-2 RNA. The SARS-CoV-2 RNA is generally detectable during the acute phase of infection. The Aptima SARS-CoV-2 Assay on the [employer] system is intended for use by laboratory personnel specifically instructed and trained in the operation of the [employer] system. The Aptima SARS-CoV-2 assay is only for use under the Food and Drug Administration Emergency Use Authorization. Testing is limited to laboratories certified under the Clinical Laboratory Improvement Amendments of 1988 (CLIA), 42 U.S.C. ???263a, to perform high complexity tests. Not Detected: Not detected does not preclude SARS-CoV-2 infection and should not be used as the sole basis for patient management decisions. Not detected results must be combined with clinical observations, patient history, and epidemiological information. Performed By: #### 3 1792 #### [facility] [address] [place] [address], [facility] eGFR- non- 53 ml/min/1.73sq m Abnormal >60 [facility] Comment on above: Order Comment: The A ptima SARS-CoV-2 assay is a nucleic acid amplification test intended for the qualitative detection of RNA from SARS-CoV-2 isolated and purified from nasopharyngeal ([employer]),oropharyngeal (OP), nasal swab, sputum, and bronchoalveolar lavage (BAL) specimens from patients with signs and symptoms of infection who are suspected of COVID-19. Results are for the identification of SARS-CoV-2 RNA. The SARS-CoV-2 RNA is generally detectable during the acute phase of infection. The Aptima SARS-CoV-2 Assay on the [employer] system is intended for use by laboratory personnel specifically instructed and trained in the operation of the [employer] system. The Aptima SARS-CoV-2 assay is only for use under the Food and Drug Administration Emergency Use Authorization. Testing is limited to laboratories certified under the Clinical Laboratory Improvement Amendments of 1988 (CLIA), 42 U.S.C. ???263a, to perform high complexity tests. Not Detected: Not detected does not preclude SARS-CoV-2 infection and should not be used as the sole basis for patient management decisions. Not detected results must be combined with clinical observations, patient history, and epidemiological information. Result Comment: Calc ulation may not be valid for patients over 70 years Performed By: #### 3 1792 #### [facility] [address] [place] [address], [facility] GFR/1.73 sq M.predicted among blacks MDRD (S/P/Bld) [Vol rate/Area] mL/min/{1.73_m2} Normal >60 [facility] Comment on above: Order Comment: The A ptima SARS-CoV-2 assay is a nucleic acid amplification test intended for the qualitative detection of RNA from SARS-CoV-2 isolated and purified from nasopharyngeal ([employer]),oropharyngeal (OP), nasal swab, sputum, and bronchoalveolar lavage (BAL) specimens from patients with signs and symptoms of infection who are suspected of COVID-19. Results are for the identification of SARS-CoV-2 RNA. The SARS-CoV-2 RNA is generally detectable during the acute phase of infection. The Aptima SARS-CoV-2 Assay on the [employer] system is intended for use by laboratory personnel specifically instructed and trained in the operation of the [employer] system. The Aptima SARS-CoV-2 assay is only for use under the Food and Drug Administration Emergency Use Authorization. Testing is limited to laboratories certified under the Clinical Laboratory Improvement Amendments of 1988 (CLIA), 42 U.S.C. ???263a, to perform high complexity tests. Not Detected: Not detected does not preclude SARS-CoV-2 infection and should not be used as the sole basis for patient management decisions. Not detected results must be combined with clinical observations, patient history, and epidemiological information. Result Comment: Calc ulation may not be valid for patients over 70 years Performed By: #### 3 1792 #### [facility] [address] Glucose [Mass/Vol] 87 mg/dL Normal 70-100 [facility] Comment on above: Order Comment: The A ptima SARS-CoV-2 assay is a nucleic acid amplification test intended for the qualitative detection of RNA from SARS-CoV-2 isolated and purified from nasopharyngeal ([employer]),oropharyngeal (OP), nasal swab, sputum, and bronchoalveolar lavage (BAL) specimens from patients with signs and symptoms of infection who are suspected of COVID-19. Results are for the identification of SARS-CoV-2 RNA. The SARS-CoV-2 RNA is generally detectable during the acute phase of infection. The Aptima SARS-CoV-2 Assay on the [employer] system is intended for use by laboratory personnel specifically instructed and trained in the operation of the [employer] system. The Aptima SARS-CoV-2 assay is only for use under the Food and Drug Administration Emergency Use Authorization. Testing is limited to laboratories certified under the Clinical Laboratory Improvement Amendments of 1988 (CLIA), 42 U.S.C. ???263a, to perform high complexity tests. Not Detected: Not detected does not preclude SARS-CoV-2 infection and should not be used as the sole basis for patient management decisions. Not detected results must be combined with clinical observations, patient history, and epidemiological information. Performed By: #### 3 1799 #### [facility] [address] [place] [address], [facility] Potassium [Moles/Vol] 4.1 mmol/L Normal 3.5-5.1 [facility] Comment on above: Order Comment: The A ptima SARS-CoV-2 assay is a nucleic acid amplification test intended for the qualitative detection of RNA from SARS-CoV-2 isolated and purified from nasopharyngeal ([employer]),oropharyngeal (OP), nasal swab, sputum, and bronchoalveolar lavage (BAL) specimens from patients with signs and symptoms of infection who are suspected of COVID-19. Results are for the identification of SARS-CoV-2 RNA. The SARS-CoV-2 RNA is generally detectable during the acute phase of infection. The Aptima SARS-CoV-2 Assay on the [employer] system is intended for use by laboratory personnel specifically instructed and trained in the operation of the [employer] system. The Aptima SARS-CoV-2 assay is only for use under the Food and Drug Administration Emergency Use Authorization. Testing is limited to laboratories certified under the Clinical Laboratory Improvement Amendments of 1988 (CLIA), 42 U.S.C. ???263a, to perform high complexity tests. Not Detected: Not detected does not preclude SARS-CoV-2 infection and should not be used as the sole basis for patient management decisions. Not detected results must be combined with clinical observations, patient history, and epidemiological information. Performed By: #### 3 1792 #### [facility] [address] [place] [address], [facility] Sodium [Moles/Vol] 135 mmol/L Low 136-145 [facility] Comment on above: Order Comment: The A ptima SARS-CoV-2 assay is a nucleic acid amplification test intended for the qualitative detection of RNA from SARS-CoV-2 isolated and purified from nasopharyngeal ([employer]),oropharyngeal (OP), nasal swab, sputum, and bronchoalveolar lavage (BAL) specimens from patients with signs and symptoms of infection who are suspected of COVID-19. Results are for the identification of SARS-CoV-2 RNA. The SARS-CoV-2 RNA is generally detectable during the acute phase of infection. The Aptima SARS-CoV-2 Assay on the [employer] system is intended for use by laboratory personnel specifically instructed and trained in the operation of the [employer] system. The Aptima SARS-CoV-2 assay is only for use under the Food and Drug Administration Emergency Use Authorization. Testing is limited to laboratories certified under the Clinical Laboratory Improvement Amendments of 1988 (CLIA), 42 U.S.C. ???263a, to perform high complexity tests. Not Detected: Not detected does not preclude SARS-CoV-2 infection and should not be used as the sole basis for patient management decisions. Not detected results must be combined with clinical observations, patient history, and epidemiological information. Performed By: #### 3 1792 #### [address] Urea nitrogen [Mass/Vol] 17 mg/dL Normal 7-25 [facility] Comment on above: Order Comment: The A ptima SARS-CoV-2 assay is a nucleic acid amplification test intended for the qualitative detection of RNA from SARS-CoV-2 isolated and purified from nasopharyngeal ([employer]),oropharyngeal (OP), nasal swab, sputum, and bronchoalveolar lavage (BAL) specimens from patients with signs and symptoms of infection who are suspected of COVID-19. Results are for the identification of SARS-CoV-2 RNA. The SARS-CoV-2 RNA is generally detectable during the acute phase of infection. The Aptima SARS-CoV-2 Assay on the [employer] system is intended for use by laboratory personnel specifically instructed and trained in the operation of the [employer] system. The Aptima SARS-CoV-2 assay is only for use under the Food and Drug Administration Emergency Use Authorization. Testing is limited to laboratories certified under the Clinical Laboratory Improvement Amendments of 1988 (CLIA), 42 U.S.C. ???263a, to perform high complexity tests. Not Detected: Not detected does not preclude SARS-CoV-2 infection and should not be used as the sole basis for patient management decisions. Not detected results must be combined with clinical observations, patient history, and epidemiological information. Performed By: #### 3 1792 #### [facility] [address] [place] [address], [facility] CALCIUM IONIZED CBGLon 04-02 IONIZED CALCIUM 1.15 mmol/L Normal 1.12-1.30 [facility] Comment on above: Performed By: #### 8 [id number] #### [facility] [address] [place] [address], [facility] CBC W/DIFFon 04-02-2022 ABS IMM GRANS 0.5 10*3/uL High 0.0-0.2 [facility] Comment on above: Order Comment: No: D o not add to previous draw Performed By: #### 8 [id number] #### [facility] [address] [place] [address], [facility] ABS NEUTROPHILS 27.8 10*3/uL High 1.6-7.6 [facility] Comment on above: Order Comment: No: D o not add to previous draw Performed By: #### 8 [id number] #### [facility] [address] [place] [address], [facility] Basophils (Bld) [#/Vol] 0.2 10*3/uL Normal 0.0-0.2 [facility] Comment on above: Order Comment: No: D o not add to previous draw Performed By: #### 8 [id number] #### [facility] [address] [place] [address], [facility] Basophils/100 WBC (Bld) 0.7 % Normal 0.0-1.0 [facility] Comment on above: Order Comment: No: D o not add to previous draw Performed By: #### 8 [id number] #### [facility] [address] [place] [address], [facility] Eosinophils (Bld) [#/Vol] 0.0 10*3/uL Normal 0.0-0.5 [facility] Comment on above: Order Comment: No: D o not add to previous draw Performed By: #### 8 [id number] #### [facility] [address] [place] [address], [facility] Eosinophils/100 WBC (Bld) 0.1 % Normal 0.0-6.0 [facility] Comment on above: Order Comment: No: D o not add to previous draw Performed By: #### 8 [id number] #### [facility] [address] [place] [address], [facility] Erythrocyte distribution width (RBC) [Ratio] 17.5 % High 11.5-15.0 [facility] Comment on above: Order Comment: No: D o not add to previous draw Performed By: #### 8 [id number] #### [facility] [address] [place] [address], [facility] Hematocrit (Bld) [Volume fraction] 39.1 % Normal 36.0-45.0 [facility] Comment on above: Order Comment: No: D o not add to previous draw Performed By: #### 8 [id number] #### [facility] [address] [place] [address], [facility] Hemoglobin (Bld) [Mass/Vol] 12.1 g/dL Normal 12.0-15.0 [facility] Comment on above: Order Comment: No: D o not add to previous draw Performed By: #### 8 [id number] #### [facility] [address] [place] [address], [facility] IMMATURE GRANS 1.8 % High 0.0-1.0 [facility] Comment on above: Order Comment: No: D o not add to previous draw Performed By: #### 8 [id number] #### [facility] [address] [place] [address], [facility] Lymphocytes (Bld) [#/Vol] 1.1 10*3/uL Low 1.2-4.0 [facility] Comment on above: Order Comment: No: D o not add to previous draw Performed By: #### 8 [id number] #### [facility] [address] [facility] [place] [address], [facility] Lymphocytes/100 WBC (Bld) 3.5 % Low 20.0-45.0 [facility] Comment on above: Order Comment: No: D o not add to previous draw Performed By: #### 8 [id number] #### [facility] [address] [facility] [place] [address], [facility] MCH (RBC) [Entitic mass] 30.1 pg Normal 27.0-33.0 [facility] Comment on above: Order Comment: No: D o not add to previous draw Performed By: #### 8 [id number] #### [facility] [address] [facility] [place] [address], [facility] MCHC (RBC) [Mass/Vol] 30.9 g/dL Low 32.0-35.0 [facility] Comment on above: Order Comment: No: D o not add to previous draw Performed By: #### 8 [id number] #### [facility] [address] [facility] [place] [id number], [facility] MCV (RBC) [Entitic vol] 97.3 fL Normal 82.0-98.0 [facility] Comment on above: Order Comment: No: D o not add to previous draw Performed By: #### 8 [id number] #### [facility] [address] [place] [address], [facility] Monocytes (Bld) [#/Vol] 0.6 10*3/uL Normal 0.1-1.0 [facility] Comment on above: Order Comment: No: D o not add to previous draw Performed By: #### 8 [id number] #### [facility] [address] [place] [id number], [facility] MONOS 1.8 % Low 5.0-12.0 [facility] Comment on above: Order Comment: No: D o not add to previous draw Performed By: #### 8 [id number] #### [facility] [address] [place] [address], [facility] Neutrophils/100 WBC (Bld) 92.1 % High 40.0-72.0 [facility] Comment on above: Order Comment: No: D o not add to previous draw Performed By: #### 8 [id number] #### [facility] [address] [place] [address], [place] Nucleated RBC/100 WBC (Bld) [Ratio] 0 % Normal 0-0 [facility] Comment on above: Order Comment: No: D o not add to previous draw Performed By: #### 8 [id number] #### [facility] [address] [facility] [place] [address], [facility] PLAT CNT 370 10*3/uL Normal 150-400 [facility] Comment on above: Order Comment: No: D o not add to previous draw Performed By: #### 8 [id number] #### [facility] [address] [facility] [place] [address], [facility] RBC (Bld) [#/Vol] 4.02 10*6/uL Normal 3.80-5.00 [facility] Comment on above: Order Comment: No: D o not add to previous draw Performed By: #### 8 [id number] #### [facility] [address] [facility] [place] [address], [place] WBC (Bld) [#/Vol] 30.18 10*3/uL High 4.00-10.60 [facility] Comment on above: Order Comment: No: D o not add to previous draw Performed By: #### 8 [id number] #### [facility] [address] [facility] [place] [address], [place] ERCPon 04-02-2022 [facility] Department of Radiology [address] [place] [address] [id number] ======== Patient Name: MARÍA ELENA TAFOYA : 1940 Sex: F Age: Race: NA Pt. Location: [id number] Patient Status: I Ordered Date: 04/02/2022 3:40:00 PM Completed Date: 04/02/2022 06:07 PM Requesting Provider: ELIU BRAUN Attending Provider: IRA PAT Report Copy To: Signs & Symptoms: Abdomen Pain Generalized History: Comments: Check Stent Position Exam: ERCP ======== ERCP 04/02/2022 6:08 PM CLINICAL INDICATIONS: Abdomen Pain Generalized TECH COMMENTS:ERCP with Dr Olivo. FL time 4.24 minutes. 42.38 mGy. # of images 7 + dose. HFW COMPARISON: None. FINDINGS: 7 images are submitted for review from ERCP performed by the GI lab. Endoscope is passed in an antegrade fashion, and the tip of the endoscope lies in the second portion of the duodenum. The common bile duct was cannulated and contrast injected in a retrograde direction, opacifying the biliary tree. Fluoroscopy Time: 4.24 minutes. IMPRESSION: This dictation is for documentation purposes only. Please see the GI procedure note for further details. Electronically signed: Brooke Verdzuco. Transcribed by: [email or web address], User Resident: Electronically Signed by: BROOKE VERDUZCO @ 04/03/2022 09:48 AM Normal [facility] Comment on above: Order Comment: Check Stent Position Endoscopy Reporton Endoscopy Report MR#: [id number] [facility] Pt. Name: María Elena Tafoya Surgery Date: 04/02/2022 Room #: B 817111 Date of : 1940 PROCEDURE NOTE ATTENDING: Elizabeth Olivo M.D. TAX FORM PREPARER: Felipe Gallo MD. PROCEDURE: ERCP with biliary sphincterotomy and stone removal. INDICATION: This is an 81-year-old female who presented with abdominal pain and abnormal LFTs. She was noted to have choledocholithiasis on MRCP. An ERCP was indicated for CBD stone removal. ANESTHESIA: General anesthesia. CONSENT: Informed consent was obtained after explaining risks including bleeding, perforation, reaction to medication, aspiration, benefits and alternatives to the patient, the patient verbalized understanding and agreed to proceed with the procedure. DESCRIPTION OF PROCEDURE: The patient was placed in semiprone position. Oxygen and cardiac monitoring equipment were attached. The patient's vital signs were continuously monitored throughout the procedure. After appropriate sedation was achieved, an Olympus side-viewing duodenoscope was advanced under direct vision from patient's oral cavity into esophagus, stomach, 1st and 2nd part of duodenum with no difficulties to the level of major papilla. An RX 44 sphincterotome loaded with 0.035 inch guidewire was then advanced to the level of major papilla and CBD was selectively cannulated. The CBD was then deeply cannulated. Contrast was injected. Flow was adequate. I personally interpreted the images. The initial cholangiogram showed 2 filling defects in distal CBD. Biliary sphincterotomy was performed. The sphincterotome was then removed and a 12-15 mm injecting below retrieval balloon catheter was then advanced to the level of major papilla and multiple balloon sweeps were performed and 2 CBD stones were removed. The final cholangiogram did not show any filling defects. The endoscope was then withdrawn out of the patient's oral cavity. There were no immediate complications. The patient tolerated the procedure well. ERCP FINDINGS: The major papilla appeared small. The CBD was selectively cannulated. Initial cholangiogram showed 2 filling defects in distal CBD and dilated proximal biliary tree. Biliary sphincterotomy was performed. Multiple balloon sweeps were performed and 2 black-colored CBD stones were removed. The final cholangiogram did not show any filling defect. RECOMMENDATIONS: 1. N.p.o. today. 2. Monitor LFTs. 3. Hold anticoagulation for 5 days if okay with the prescriber. 4. Consider general surgical consultation to consider cholecystectomy. Electronically Signed by: Elizabeth Olivo M.D. 04/12/2022 05:08 P Elizabeth Olivo M.D. I was present for the entire procedure from insertion of the scope until it was withdrawn. Date Dict: 04/02/2022/05:45 P/Felipe Gallo MD Date Trans: 04/02/2022 07:10 P/mmo [id number] cc: Bennie Albright M.D. [address] [place] [address] [place] [facility] LIVER BATTERYon 04-02-2022 Albumin [Mass/Vol] 3.0 g/dL Low 3.5-5.7 [facility] Comment on above: Order Comment: The A ptima SARS-CoV-2 assay is a nucleic acid amplification test intended for the qualitative detection of RNA from SARS-CoV-2 isolated and purified from nasopharyngeal ([employer]),oropharyngeal (OP), nasal swab, sputum, and bronchoalveolar lavage (BAL) specimens from patients with signs and symptoms of infection who are suspected of COVID-19. Results are for the identification of SARS-CoV-2 RNA. The SARS-CoV-2 RNA is generally detectable during the acute phase of infection. The Aptima SARS-CoV-2 Assay on the [employer] system is intended for use by laboratory personnel specifically instructed and trained in the operation of the [employer] system. The Aptima SARS-CoV-2 assay is only for use under the Food and Drug Administration Emergency Use Authorization. Testing is limited to laboratories certified under the Clinical Laboratory Improvement Amendments of 1988 (CLIA), 42 U.S.C. ???263a, to perform high complexity tests. Not Detected: Not detected does not preclude SARS-CoV-2 infection and should not be used as the sole basis for patient management decisions. Not detected results must be combined with clinical observations, patient history, and epidemiological information. Performed By: #### 3 [id number] #### [facility] [address] ALKALINE PHOSPH 174 IU/L High 34-104 [facility] Comment on above: Order Comment: The A ptima SARS-CoV-2 assay is a nucleic acid amplification test intended for the qualitative detection of RNA from SARS-CoV-2 isolated and purified from nasopharyngeal ([employer]),oropharyngeal (OP), nasal swab, sputum, and bronchoalveolar lavage (BAL) specimens from patients with signs and symptoms of infection who are suspected of COVID-19. Results are for the identification of SARS-CoV-2 RNA. The SARS-CoV-2 RNA is generally detectable during the acute phase of infection. The Aptima SARS-CoV-2 Assay on the [employer] system is intended for use by laboratory personnel specifically instructed and trained in the operation of the [employer] system. The Aptima SARS-CoV-2 assay is only for use under the Food and Drug Administration Emergency Use Authorization. Testing is limited to laboratories certified under the Clinical Laboratory Improvement Amendments of 1988 (CLIA), 42 U.S.C. ???263a, to perform high complexity tests. Not Detected: Not detected does not preclude SARS-CoV-2 infection and should not be used as the sole basis for patient management decisions. Not detected results must be combined with clinical observations, patient history, and epidemiological information. Performed By: #### 3 [id number] #### [facility] [address] ALT [Catalytic activity/Vol] 21 U/L Normal 7-52 [facility] Comment on above: Order Comment: The A ptima SARS-CoV-2 assay is a nucleic acid amplification test intended for the qualitative detection of RNA from SARS-CoV-2 isolated and purified from nasopharyngeal ([employer]),oropharyngeal (OP), nasal swab, sputum, and bronchoalveolar lavage (BAL) specimens from patients with signs and symptoms of infection who are suspected of COVID-19. Results are for the identification of SARS-CoV-2 RNA. The SARS-CoV-2 RNA is generally detectable during the acute phase of infection. The Aptima SARS-CoV-2 Assay on the [employer] system is intended for use by laboratory personnel specifically instructed and trained in the operation of the [employer] system. The Aptima SARS-CoV-2 assay is only for use under the Food and Drug Administration Emergency Use Authorization. Testing is limited to laboratories certified under the Clinical Laboratory Improvement Amendments of 1988 (CLIA), 42 U.S.C. ???263a, to perform high complexity tests. Not Detected: Not detected does not preclude SARS-CoV-2 infection and should not be used as the sole basis for patient management decisions. Not detected results must be combined with clinical observations, patient history, and epidemiological information. Performed By: #### 3 [id number] #### [facility] [address] [place] [address], [facility] AST [Catalytic activity/Vol] 9 U/L Low 13-39 [facility] Comment on above: Order Comment: The A ptima SARS-CoV-2 assay is a nucleic acid amplification test intended for the qualitative detection of RNA from SARS-CoV-2 isolated and purified from nasopharyngeal ([employer]),oropharyngeal (OP), nasal swab, sputum, and bronchoalveolar lavage (BAL) specimens from patients with signs and symptoms of infection who are suspected of COVID-19. Results are for the identification of SARS-CoV-2 RNA. The SARS-CoV-2 RNA is generally detectable during the acute phase of infection. The Aptima SARS-CoV-2 Assay on the [employer] system is intended for use by laboratory personnel specifically instructed and trained in the operation of the [employer] system. The Aptima SARS-CoV-2 assay is only for use under the Food and Drug Administration Emergency Use Authorization. Testing is limited to laboratories certified under the Clinical Laboratory Improvement Amendments of 1988 (CLIA), 42 U.S.C. ???263a, to perform high complexity tests. Not Detected: Not detected does not preclude SARS-CoV-2 infection and should not be used as the sole basis for patient management decisions. Not detected results must be combined with clinical observations, patient history, and epidemiological information. Performed By: #### 3 [id number] #### [facility] [address] [place] [address], [facility] Bilirubin [Mass/Vol] 1.9 mg/dL High 0.3-1.0 [facility] Comment on above: Order Comment: The A ptima SARS-CoV-2 assay is a nucleic acid amplification test intended for the qualitative detection of RNA from SARS-CoV-2 isolated and purified from nasopharyngeal ([employer]),oropharyngeal (OP), nasal swab, sputum, and bronchoalveolar lavage (BAL) specimens from patients with signs and symptoms of infection who are suspected of COVID-19. Results are for the identification of SARS-CoV-2 RNA. The SARS-CoV-2 RNA is generally detectable during the acute phase of infection. The Aptima SARS-CoV-2 Assay on the [employer] system is intended for use by laboratory personnel specifically instructed and trained in the operation of the [employer] system. The Aptima SARS-CoV-2 assay is only for use under the Food and Drug Administration Emergency Use Authorization. Testing is limited to laboratories certified under the Clinical Laboratory Improvement Amendments of 1988 (CLIA), 42 U.S.C. ???263a, to perform high complexity tests. Not Detected: Not detected does not preclude SARS-CoV-2 infection and should not be used as the sole basis for patient management decisions. Not detected results must be combined with clinical observations, patient history, and epidemiological information. Performed By: #### 3 [id number] #### [address] Bilirubin.direct [Mass/Vol] 0.8 mg/dL High 0.0-0.2 [facility] Comment on above: Order Comment: The A ptima SARS-CoV-2 assay is a nucleic acid amplification test intended for the qualitative detection of RNA from SARS-CoV-2 isolated and purified from nasopharyngeal ([employer]),oropharyngeal (OP), nasal swab, sputum, and bronchoalveolar lavage (BAL) specimens from patients with signs and symptoms of infection who are suspected of COVID-19. Results are for the identification of SARS-CoV-2 RNA. The SARS-CoV-2 RNA is generally detectable during the acute phase of infection. The Aptima SARS-CoV-2 Assay on the [employer] system is intended for use by laboratory personnel specifically instructed and trained in the operation of the [employer] system. The Aptima SARS-CoV-2 assay is only for use under the Food and Drug Administration Emergency Use Authorization. Testing is limited to laboratories certified under the Clinical Laboratory Improvement Amendments of 1988 (CLIA), 42 U.S.C. ???263a, to perform high complexity tests. Not Detected: Not detected does not preclude SARS-CoV-2 infection and should not be used as the sole basis for patient management decisions. Not detected results must be combined with clinical observations, patient history, and epidemiological information. Performed By: #### 3 [id number] #### [facility] [address] [place] [address], [facility] Protein [Mass/Vol] 6.1 g/dL Normal 6.0-8.3 [facility] Comment on above: Order Comment: The A ptima SARS-CoV-2 assay is a nucleic acid amplification test intended for the qualitative detection of RNA from SARS-CoV-2 isolated and purified from nasopharyngeal ([employer]),oropharyngeal (OP), nasal swab, sputum, and bronchoalveolar lavage (BAL) specimens from patients with signs and symptoms of infection who are suspected of COVID-19. Results are for the identification of SARS-CoV-2 RNA. The SARS-CoV-2 RNA is generally detectable during the acute phase of infection. The Aptima SARS-CoV-2 Assay on the [employer] system is intended for use by laboratory personnel specifically instructed and trained in the operation of the [employer] system. The Aptima SARS-CoV-2 assay is only for use under the Food and Drug Administration Emergency Use Authorization. Testing is limited to laboratories certified under the Clinical Laboratory Improvement Amendments of 1988 (CLIA), 42 U.S.C. ???263a, to perform high complexity tests. Not Detected: Not detected does not preclude SARS-CoV-2 infection and should not be used as the sole basis for patient management decisions. Not detected results must be combined with clinical observations, patient history, and epidemiological information. Performed By: #### 3 [id number] #### [facility] [address] [place] [address], [facility] MAGNESIUM BLOODon 04-02-2022 Magnesium [Mass/Vol] 1.3 mg/dL Low 1.9-2.7 [facility] Comment on above: Order Comment: The A ptima SARS-CoV-2 assay is a nucleic acid amplification test intended for the qualitative detection of RNA from SARS-CoV-2 isolated and purified from nasopharyngeal ([employer]),oropharyngeal (OP), nasal swab, sputum, and bronchoalveolar lavage (BAL) specimens from patients with signs and symptoms of infection who are suspected of COVID-19. Results are for the identification of SARS-CoV-2 RNA. The SARS-CoV-2 RNA is generally detectable during the acute phase of infection. The Aptima SARS-CoV-2 Assay on the [employer] system is intended for use by laboratory personnel specifically instructed and trained in the operation of the [employer] system. The Aptima SARS-CoV-2 assay is only for use under the Food and Drug Administration Emergency Use Authorization. Testing is limited to laboratories certified under the Clinical Laboratory Improvement Amendments of 1988 (CLIA), 42 U.S.C. ???263a, to perform high complexity tests. Not Detected: Not detected does not preclude SARS-CoV-2 infection and should not be used as the sole basis for patient management decisions. Not detected results must be combined with clinical observations, patient history, and epidemiological information. Performed By: #### 3 [id number] #### [facility] [address] [place] [address], [facility] PHOSPHORUS BLOODon 2 Phosphate [Mass/Vol] 2.9 mg/dL Normal 2.5-5.0 [facility] Comment on above: Order Comment: The A ptima SARS-CoV-2 assay is a nucleic acid amplification test intended for the qualitative detection of RNA from SARS-CoV-2 isolated and purified from nasopharyngeal ([employer]),oropharyngeal (OP), nasal swab, sputum, and bronchoalveolar lavage (BAL) specimens from patients with signs and symptoms of infection who are suspected of COVID-19. Results are for the identification of SARS-CoV-2 RNA. The SARS-CoV-2 RNA is generally detectable during the acute phase of infection. The Aptima SARS-CoV-2 Assay on the [employer] system is intended for use by laboratory personnel specifically instructed and trained in the operation of the [employer] system. The Aptima SARS-CoV-2 assay is only for use under the Food and Drug Administration Emergency Use Authorization. Testing is limited to laboratories certified under the Clinical Laboratory Improvement Amendments of 1988 (CLIA), 42 U.S.C. ???263a, to perform high complexity tests. Not Detected: Not detected does not preclude SARS-CoV-2 infection and should not be used as the sole basis for patient management decisions. Not detected results must be combined with clinical observations, patient history, and epidemiological information. Performed By: #### 3 [id number] #### [facility] [address] [place] [address], [facility] POC GLUCOSE LABon 04-02-2022 Glucose [Mass/Vol] 126 mg/dL High 70-100 [facility] Comment on above: Performed By: #### 8 [id number] #### [facility] [address] [place] [address], [facility] Glucose [Mass/Vol] 102 mg/dL High 70-100 [facility] Comment on above: Performed By: #### 8 [id number] ####[facility] [place] [address], [facility] Glucose [Mass/Vol] 123 mg/dL High 70-100 [facility] Comment on above: Performed By: #### 8 [id number] #### [facility] [address] [place] [address], [facility] Glucose [Mass/Vol] 96 mg/dL Normal 70-100 [facility] Comment on above: Performed By: #### 8 [id number] #### [facility] [address] [place] [address], [facility] POC [facility]2 (COVID-19) RNA MATTHEW+probe Ql (Unsp spec) Negative Normal NEGATIVE [facility] Comment on above: Result Comment: ID N OW COVID-19 assay performed on the ID NOW Instrument is a rapid molecular in vitro diagnostic test utilizing an isothermal nucleic acid amplification technology intended for the qualitative detection of nucleic acid from the SARS-CoV-2 virus in direct anterior nasal (nasal), nasopharyngeal or throat swabs from individuals who are suspected of COVID-19 by their healthcare provider within the first seven days of the onset of symptoms. Testing is limited to laboratories certified under the Clinical Laboratory Improvement Amendments of 1988 (CLIA), 42 U.S.C. ???263a,that meet the requirements to perform high, moderate, or waived complexity tests. The ID NOW COVID-19 assay is also authorized for use at the Point of Care (POC), i.e., in patient care settings operating under a CLIA Certificate of Waiver, Certificate of Compliance, or Certificate of Accreditation. Performed By: #### 3 [id number] #### [facility] [address] [place] [address], [facility] PROTHROMBIN TIMEon 2 INR Coag (PPP) [Relative time] 1.21 {INR} High 0.91-1.16 [facility] Comment on above: Order Comment: No: D o not add to previous draw Result Comment: ACCC P RECOMMENDED INR FOR WARFARIN THERAPY ------ ------- CONDITION INR PROPHYLAXIS OF VENOUS THROMBOSIS 2-3 (HIGH-RISK SURGERY) TREATMENT OF VENOUS THROMBOSIS 2-3 TREATMENT OF PULMONARY EMBOLISM 2-3 PREVENTION OF SYSTEMIC EMBOLISM: 2-3 ACUTE MYOCARDIAL INFARCTION TISSUE HEART VALVES VALVULAR HEART DISEASE ATRIAL FIBRILLATION RECURRENT SYSTEMIC EMBOLISM MECHANICAL HEART VALVE 2.5-3.5 FROM: ORAL ANTICOAGULANTS. MECHANISM OF ACTION, CLINICAL EFFECTIVENESS, AND OPTIMAL THERAPEUTIC RANGE. CHEST 1995;108:231S-246S. Performed By: #### 8 [id number] #### [facility] [address] [place] [address], [facility] PT Coag (PPP) [Time] 15.3 s High 12.3-14.8 [facility] Comment on above: Order Comment: No: D o not add to previous draw Result Comment: ALL RESULTS MUST BE INTERPRETED WITH RESPECT TO BLOOD DRAWING ARTIFACT OR DILUTION ERROR OF ANTICOAGULANT AT THE TIME OF SAMPLING. Performed By: #### 8 [id number] #### [facility] [address] UFH HEPARIN ASSAYon 04-02-20 UNFRACTIONATED HEPARIN 0.96 IU/mL Critically high 0.30-0.70 [facility] Comment on above: Result Comment: Resu lt checked and called. Accurately read back by Eyal Griffin RN at 0543 Rivaroxaban and Apixaban will interfere with the anti Xa assay used to monitor UFH and LMWH. Performed By: #### 8 [id number] #### [facility] [address] [facility] [address] *SARS-CoV-2 COVID-19on 04-01 SARS-CoV-2 (COVID-19) RNA MATTHEW+probe Ql (Unsp spec) Not detected Normal Not Detected [facility] Comment on above: Order Comment: The A ptima SARS-CoV-2 assay is a nucleic acid amplification test intended for the qualitative detection of RNA from SARS-CoV-2 isolated and purified from nasopharyngeal ([employer]),oropharyngeal (OP), nasal swab, sputum, and bronchoalveolar lavage (BAL) specimens from patients with signs and symptoms of infection who are suspected of COVID-19. Results are for the identification of SARS-CoV-2 RNA. The SARS-CoV-2 RNA is generally detectable during the acute phase of infection. The Aptima SARS-CoV-2 Assay on the [employer] system is intended for use by laboratory personnel specifically instructed and trained in the operation of the [employer] system. The Aptima SARS-CoV-2 assay is only for use under the Food and Drug Administration Emergency Use Authorization. Testing is limited to laboratories certified under the Clinical Laboratory Improvement Amendments of 1988 (CLIA), 42 U.S.C. ???263a, to perform high complexity tests. Not Detected: Not detected does not preclude SARS-CoV-2 infection and should not be used as the sole basis for patient management decisions. Not detected results must be combined with clinical observations, patient history, and epidemiological information. Performed By: #### 3 [id number] #### [facility] [address] [facility]. [address] AMMONIAon 04-01-2022 Ammonia (P) [Mass/Vol] ug/dL Critically low 11-32 [facility] Comment on above: Performed By: #### A MM ####[facility] [address] [place], [place] [address]Dr. Bhavani Barragan APTTon 04-01-2022 aPTT Coag (Bld) [Time] 35.4 s High 25.0-35.0 [facility] Comment on above: Order Comment: No: D o not add to previous draw Result Comment: ALL RESULTS MUST BE INTERPRETED WITH RESPECT TO BLOOD DRAWING ARTIFACT OR DILUTION ERROR OF ANTICOAGULANT AT THE TIME OF SAMPLING. THE APTT SHOULD NOT BE USED TO MONITOR UNFRACTIONATED HEPARIN THERAPY, THIS LABORATORY NO LONGER HAS AN ESTABLISHED THERAPEUTIC RANGE BASED ON THE APTT. IT IS RECOMMENDED THAT THE UFH - HEPARIN ASSAY (ANTI-XA ACTIVITY) BE USED FOR THIS PURPOSE. Performed By: #### 8 [id number] #### [facility] [address] [facility]. [address] CBC AUTO DIFFon 04-01-2022 BASO # 0.2 103/ul Critically high 0.0-0.1 [facility] Comment on above: Performed By: #### C BC ####[facility] [address] [place], [place] [address]Dr. Bhavani Barragan Basophils/100 WBC (Bld) 0.6 % Normal 0.2-2.0 [facility] Comment on above: Performed By: #### C BC ####[facility] [address] [place] [address]DrLydia Barragan EO # 0.0 103/ul Normal 0.0-0.7 [facility] Comment on above: Performed By: #### C BC ####[facility] [address] [place] [id number] Barragan Eosinophils/100 WBC (Bld) 0.1 % Critically low 0.9-7.0 [facility] Comment on above: Performed By: #### C BC ####[facility] [address] [place] [address]Dr. Bhavani Barragan Erythrocyte distribution width (RBC) [Ratio] 17.8 % Critically high 11.0-15.0 [facility] Comment on above: Performed By: #### C BC ####[facility] [address] [place], [place] [address]DrLydia Barragan Hematocrit (Bld) [Volume fraction] 39.0 % Normal 36.0-48.0 [facility] Comment on above: Performed By: #### C BC ####[facility] [address] [place], [place] [address]DrLydia Barragan Hemoglobin (Bld) [Mass/Vol] 11.9 g/dL Critically low 12.0-16.0 [facility] Comment on above: Performed By: #### C BC ####[facility] [address] [place], [place] [address]Dr. Bhavani Barragan IG # 0.74 10e3/ul Critically high 0.00-0.03 [facility] Comment on above: Performed By: #### C BC ####[facility] [address] [place], [place] [address]Dr. Bhavani Barragan IG % 2.2 % Critically high 0.0-0.5 [facility] Comment on above: Performed By: #### C BC ####[facility] [address] [place], [place] [address]DrLydia Barragan LYMPH # 0.9 103/ul Critically low 1.2-3.8 [facility] Comment on above: Performed By: #### C BC ####[facility] [address] [place], [place] [address]DrLydia Barragan Lymphocytes/100 WBC (Bld) 2.7 % Critically low 20.5-60.0 [facility] Comment on above: Performed By: #### C BC ####[facility] [address] [place], [place] [address]DrLydia Barragan MANUAL DIFF REQ NO Normal [facility] Comment on above: Performed By: #### C BC ####[facility] [address] [place] [address]Dr. Bhavani Barragan MCH (RBC) [Entitic mass] 29.8 pg Normal 26.7-34.0 [facility] Comment on above: Performed By: #### C BC ####[facility] [address] [place] [address]DrLydia Barragan MCHC (RBC) [Mass/Vol] 30.5 g/dL Normal 29.9-35.2 [facility] Comment on above: Performed By: #### C BC ####[facility] [address] [place], [place] [address]DrLydia Barragan MCV (RBC) [Entitic vol] 97.5 fL Normal 81.0-99.0 [facility] Comment on above: Performed By: #### C BC ####[facility] [address] [place], [place] [address]DrLydia Barragan MONO # 0.6 103/ul Normal 0.3-0.8 [facility] Comment on above: Performed By: #### C BC ####[facility] [address] [place], [place] [address]DrLydia Barragan Monocytes/100 WBC (Bld) 1.7 % Normal 1.7-12.0 [facility] Comment on above: Performed By: #### C BC ####[facility] [address] [place], [place] [address]DrLydia Barragan NEUT # 30.7 103/ul Critically high 1.4-6.5 The [facility] Comment on above: Performed By: #### C BC ####[facility] [address] [place], [place] [address]DrLydia Barragan Neutrophils/100 WBC (Bld) 92.7 % Critically high 43.0-75.0 The [facility] Comment on above: Performed By: #### C BC ####[facility] Oiayu[address]yel[address] [place], [place] [address]DrLydia Barragan Platelet mean volume (Bld) [Entitic vol] 9.8 fL Normal 9.5-13.5 The [facility] Comment on above: Performed By: #### C BC ####[facility] [address] [place] [id number]. Bhavani Barragan PLT 372 103/ul Normal 150-450 The [facility] Comment on above: Performed By: #### C BC ####[facility] Niibiwhrpd[address] [place] [id number]. Bhavani Barragan RBC 4.00 106/ul Critically low 4.20-5.40 The [facility] Comment on above: Performed By: #### C BC ####[facility] Y[address]xonhop[address] [place] [id number]. Bhavani Barragan WBC 33.2 103/ul Critically high 4.0-11.0 The [facility] Comment on above: Performed By: #### C BC ####[facility] Ykmfmeudpz[address] [place] [id number]. Bhavani Barragan CBC W/DIFFon 04-01-2022 ABS IMM GRANS 0.7 10*3/uL High 0.0-0.2 The [facility] Comment on above: Order Comment: No: D o not add to previous draw Performed By: #### 8 [id number] #### [facility] [address] [place] [address], [facility] ABS NEUTROPHILS 30.0 10*3/uL High 1.6-7.6 The [facility] Comment on above: Order Comment: No: D o not add to previous draw Performed By: #### 8 [id number] #### [facility] [address] [facility]. [place] [id number], [facility] Basophils (Bld) [#/Vol] 0.2 10*3/uL Normal 0.0-0.2 The [facility] Comment on above: Order Comment: No: D o not add to previous draw Performed By: #### 8 [id number] #### [facility] [address] [place] [address], [facility] Basophils/100 WBC (Bld) 0.5 % Normal 0.0-1.0 The [facility] Comment on above: Order Comment: No: D o not add to previous draw Performed By: #### 8 [id number] #### [facility] [address] [place] [address], [facility] Eosinophils (Bld) [#/Vol] 0.0 10*3/uL Normal 0.0-0.5 The [facility] Comment on above: Order Comment: No: D o not add to previous draw Performed By: #### 8 [id number] #### [facility] [address] [place] [address], [facility] Eosinophils/100 WBC (Bld) 0.1 % Normal 0.0-6.0 The [facility] Comment on above: Order Comment: No: D o not add to previous draw Performed By: #### 8 [id number] #### [facility] [address] [place] [address], [facility] Erythrocyte distribution width (RBC) [Ratio] 18.3 % High 11.5-15.0 The [facility] Comment on above: Order Comment: No: D o not add to previous draw Performed By: #### 8 [id number] #### [facility] [address] [place] [address], [facility] Hematocrit (Bld) [Volume fraction] 40.4 % Normal 36.0-45.0 The [facility] Comment on above: Order Comment: No: D o not add to previous draw Performed By: #### 8 [id number] #### [facility] [address] [place] [address], [facility] Hemoglobin (Bld) [Mass/Vol] 12.9 g/dL Normal 12.0-15.0 The [facility] Comment on above: Order Comment: No: D o not add to previous draw Performed By: #### 8 5499 #### [facility] [address] IMMATURE GRANS 2.1 % High 0.0-1.0 The [facility] Comment on above: Order Comment: No: D o not add to previous draw Performed By: #### 8 5499 #### [facility] [address] [place] [address], [facility] Lymphocytes (Bld) [#/Vol] 0.8 10*3/uL Low 1.2-4.0 The [facility] Comment on above: Order Comment: No: D o not add to previous draw Performed By: #### 8 5499 #### [facility] [address] [place] [address], [facility] Lymphocytes/100 WBC (Bld) 2.6 % Low 20.0-45.0 The [facility] Comment on above: Order Comment: No: D o not add to previous draw Performed By: #### 8 5499 #### [facility] [address] [place] [address], [facility] MCH (RBC) [Entitic mass] 30.6 pg Normal 27.0-33.0 The [facility] Comment on above: Order Comment: No: D o not add to previous draw Performed By: #### 8 5499 #### [facility] [address] [place] [address], [facility] MCHC (RBC) [Mass/Vol] 31.9 g/dL Low 32.0-35.0 The [facility] Comment on above: Order Comment: No: D o not add to previous draw Performed By: #### 8 5499 #### [facility] [address] [place] [address], [facility] MCV (RBC) [Entitic vol] 96.0 fL Normal 82.0-98.0 The [facility] Comment on above: Order Comment: No: D o not add to previous draw Performed By: #### 8 5499 #### [facility] [address] [facility] [place] [address], [facility] Monocytes (Bld) [#/Vol] 0.5 10*3/uL Normal 0.1-1.0 [facility] Comment on above: Order Comment: No: D o not add to previous draw Performed By: #### 8 [id number] #### [facility] [address] [place] [address], [place] MONOS 1.7 % Low 5.0-12.0 The [facility] Comment on above: Order Comment: No: D o not add to previous draw Performed By: #### 8 5499 #### [facility] [address] [place] [address], [place] Neutrophils/100 WBC (Bld) 93.0 % High 40.0-72.0 The [facility] Comment on above: Order Comment: No: D o not add to previous draw Performed By: #### 8 5499 #### [facility] [address] [place] [address], [place] Nucleated RBC/100 WBC (Bld) [Ratio] 0 % Normal 0-0 The [facility] Comment on above: Order Comment: No: D o not add to previous draw Performed By: #### 8 5499 #### [facility] [address] [place] [address], [place] PLAT CNT 375 10*3/uL Normal 150-400 The [facility] Comment on above: Order Comment: No: D o not add to previous draw Performed By: #### 8 [id number] #### [facility] [address] [place] [address], [place] RBC (Bld) [#/Vol] 4.21 10*6/uL Normal 3.80-5.00 The [facility] Comment on above: Order Comment: No: D o not add to previous draw Performed By: #### 8 [id number] #### [facility] [address] [place] [address], [place] WBC (Bld) [#/Vol] 32.19 10*3/uL High 4.00-10.60 The [facility] Comment on above: Order Comment: No: D o not add to previous draw Performed By: #### 8 5499 #### [facility] [address] [place] [address], [facility] COMP METABOLIC PANELon 04-01 Albumin [Mass/Vol] 3.1 g/dL Low 3.5-5.7 The [facility] Comment on above: Order Comment: No: D o not add to previous draw Performed By: #### 2 2706 #### [facility] [address] [place] [address], [facility] ALKALINE PHOSPH 208 IU/L High 34-104 The [facility] Comment on above: Order Comment: No: D o not add to previous draw Performed By: #### 2 2706 #### [facility] [address] [place] [address], [facility] ALT [Catalytic activity/Vol] 27 U/L Normal 7-52 The [facility] Comment on above: Order Comment: No: D o not add to previous draw Performed By: #### 2 2706 #### [facility] [address] [place] [address], [facility] AST [Catalytic activity/Vol] 12 U/L Low 13-39 The [facility] Comment on above: Order Comment: No: D o not add to previous draw Performed By: #### 2 2706 #### [facility] [address] [place] [address], [place] Bilirubin [Mass/Vol] 1.8 mg/dL High 0.3-1.0 The [facility] Comment on above: Order Comment: No: D o not add to previous draw Performed By: #### 2 2706 #### [facility] [address] [place] [address], [place] Calcium [Mass/Vol] 8.3 mg/dL Low 8.6-10.3 The [facility] Comment on above: Order Comment: No: D o not add to previous draw Performed By: #### 2 2706 #### [facility] [address] [place] [address], [place] Chloride [Moles/Vol] 103 mmol/L Normal 98-107 The [facility] Comment on above: Order Comment: No: D o not add to previous draw Performed By: #### 2 2706 #### [facility] [address] [place] [address], [place] CO2 [Moles/Vol] 20 mmol/L Low 21-31 The [facility] Comment on above: Order Comment: No: D o not add to previous draw Performed By: #### 2 2706 #### [facility] [address] [place] [address], [place] Creatinine [Mass/Vol] 1.12 mg/dL Normal 0.60-1.20 The [facility] Comment on above: Order Comment: No: D o not add to previous draw Performed By: #### 2 2706 #### [facility] [address] [place] [address], [facility] eGFR- 56 ml/min/1.73sq m Abnormal >60 The [facility] Comment on above: Order Comment: No: D o not add to previous draw Result Comment: Calc ulation may not be valid for patients over 70 years Performed By: #### 2 2706 #### [facility] [address] [place] [address], [place] eGFR- non- 47 ml/min/1.73sq m Abnormal >60 The [facility] Comment on above: Order Comment: No: D o not add to previous draw Result Comment: Calc ulation may not be valid for patients over 70 years Performed By: #### 2 2706 #### [facility] [address] [place] [address], [place] Glucose [Mass/Vol] 110 mg/dL High 70-100 The [facility] Comment on above: Order Comment: No: D o not add to previous draw Performed By: #### 2 2706 #### [facility] [address] [place] [address], [facility] Potassium [Moles/Vol] 4.1 mmol/L Normal 3.5-5.1 The [facility] Comment on above: Order Comment: No: D o not add to previous draw Performed By: #### 2 2706 #### [facility] [address] [place] [id number], [facility] Protein [Mass/Vol] 6.1 g/dL Normal 6.0-8.3 The [facility] Comment on above: Order Comment: No: D o not add to previous draw Performed By: #### 2 2706 #### [facility] [address] [place] [address], [facility] Sodium [Moles/Vol] 134 mmol/L Low 136-145 [facility] Comment on above: Order Comment: No: D o not add to previous draw Performed By: #### 2 2706 #### [facility] [address] [place] [address], [facility] Urea nitrogen [Mass/Vol] 21 mg/dL Normal 7-25 The [facility] Comment on above: Order Comment: No: D o not add to previous draw Performed By: #### 2 2706 #### [facility] [address] [place] [id number], [facility] DIGOXINon 04-01-2022 Digoxin [Mass/Vol] 0.6 ng/mL Low 0.7-2.0 The [facility] Comment on above: Performed By: #### 2 2706 #### [facility] [address] [place] [address], [facility] DIRECT BILIon 04-01-2022 Bilirubin.direct [Mass/Vol] 0.7 mg/dL High 0.0-0.2 The [facility] Comment on above: Order Comment: No: D o not add to previous draw Performed By: #### 2 2706 #### [facility] [address] [place] [address], [facility] LIPASEon 04-01-2022 Lipase [Catalytic activity/Vol] 2234.0 U/L Critically high 73.0-393.0 [facility] Comment on above: Performed By: #### L IPA, CMP ####[facility] [address] [place] [address]Dr. Bhavani Barragan LIPASE BLOODon 04-01-2022 LIPASE 354 Units/L High 11-82 The [facility] Comment on above: Order Comment: No: D o not add to previous draw Performed By: #### 2 2706 #### [facility] [address] [place] [address], [facility] POC GLUCOSE LABon 04-01-2022 Glucose [Mass/Vol] 114 mg/dL High 70-100 The [facility] Comment on above: Performed By: #### 8 5499 #### [facility] [address] [facility] [place] [address], [place] Glucose [Mass/Vol] 113 mg/dL High 70-100 The [facility] Comment on above: Performed By: #### 8 5499 #### [facility] [address] [place] [address], [place] Glucose [Mass/Vol] 101 mg/dL High 70-100 The [facility] Comment on above: Performed By: #### 3 0313 #### [facility] [address] [place] [address], [place] PROF 14(COMP METB)on 022 Albumin [Mass/Vol] 2.0 g/dL Critically low 3.4-5.0 [facility] Comment on above: Performed By: #### L IPA, CMP ####[facility] [address] [place] [address]Dr. Bhavani Barragan Albumin/Globulin [Mass ratio] 0.5 {ratio} Normal [facility] Comment on above: Performed By: #### L IPA, CMP ####[facility] [address] [place] [address]Dr. Bhavani Laurel ALP [Catalytic activity/Vol] 247 U/L Critically high 46-116 [facility] Comment on above: Performed By: #### L IPA, CMP ####[facility] [address] [place] [address]Dr. Bhavani Barragan ALT [Catalytic activity/Vol] 50 U/L Normal 14-59 [facility] Comment on above: Performed By: #### L IPA, CMP ####[facility] [address] [place], [place] [address]Dr. Bhavani Barragan Anion gap [Moles/Vol] 11.2 mmol/L Normal [facility] Comment on above: Performed By: #### L IPA, CMP ####[facility] [address] [place], [place] [address]Dr. Bhavani Barragan AST [Catalytic activity/Vol] 19 U/L Normal 15-37 [facility] Comment on above: Performed By: #### L IPA, CMP ####[facility] [address] [place], [place] [address]Dr. Bhavani Barragan Bilirubin [Mass/Vol] 1.5 mg/dL Critically high 0.2-1.0 [facility] Comment on above: Performed By: #### L IPA, CMP ####[facility] [address] [place] [address]Dr. Bhavani Barragan Calcium [Mass/Vol] 8.1 mg/dL Critically low 8.5-10.1 Th [facility] Comment on above: Performed By: #### L IPA, CMP ####[facility] [address] [place], [place] [address]Dr. Bhavani Barragan Chloride [Moles/Vol] 105 mmol/L Normal 98-107 [facility] Comment on above: Performed By: #### L IPA, CMP ####[facility] Ynssef[address] [place], [place] [address]Dr. Bhavani Barragan CO2 [Moles/Vol] 25.1 mmol/L Normal 21.0-32.0 [facility] Comment on above: Performed By: #### L IPA, CMP ####[facility] [address] [place] [address]Dr. Bhavani Barragan Creatinine [Mass/Vol] 1.39 mg/dL Critically high 0.55-1.02 [facility] Comment on above: Performed By: #### L IPA, CMP ####[facility] [address] [place] [address]Dr. Bhavani Laurel EGFR-AF [place]AN 44 mL/min/1.73m2 Critically low >=60 [facility] Comment on above: Performed By: #### L IPA, CMP ####[facility] [address] [place] [address]Dr. Jayceeroxi Barragan EGFR-NON AF [place] 36 mL/min/1.73m2 Critically low >=60 [facility] Comment on above: Performed By: #### L IPA, CMP ####[facility] [address] [place] [address]Dr. Jayceeroxi Barragan Globulin (S) [Mass/Vol] 4.3 g/dL Normal [facility] Comment on above: Performed By: #### L IPA, CMP ####[facility] [address] [place] [address]Dr. Bhavani Barragan Glucose [Mass/Vol] 113 mg/dL Critically high 74-106 [facility] Comment on above: Performed By: #### L IPA, CMP ####[facility] [address] [place] [address]Dr. Bhavani Barragan Potassium [Moles/Vol] 4.3 mmol/L Normal 3.5-5.1 [facility] Comment on above: Performed By: #### L IPA, CMP ####[facility] [address]ccx[address] [place] [address]Dr. Bhavani Barragan Protein [Mass/Vol] 6.3 g/dL Critically low 6.4-8.2 Th [facility] Comment on above: Performed By: #### L IPA, CMP ####[facility] [address]te[address] [place], [place] [address]Dr. Bhavani Barragan Sodium [Moles/Vol] 137 mmol/L Normal 136-145 [facility] Comment on above: Performed By: #### L IPA, CMP ####[facility] [address]im[address] [place], [place] [address]Dr. Bhavani Barragan Urea nitrogen [Mass/Vol] 26.0 mg/dL Critically high 7.0-18.0 [facility] Comment on above: Performed By: #### L IPA, CMP ####[facility] [address] [place], [place] [address]Dr. Bhavani Barragan Urea nitrogen/Creatinine [Mass ratio] 18.7 mg/mg Normal [facility] Comment on above: Performed By: #### L IPA, CMP ####[facility] Cx[address]lw[address] [place], [place] [address]Dr. Bhavani Barragan PROTIMEon 04-01-2022 INR Coag (PPP) [Relative time] 1.14 {INR} Normal [facility] Comment on above: Performed By: #### P TT, PT ####[facility] [address] [place], [place] [address]Dr. Bhavani Barragan INR GUIDELINES SEE BELOW Normal [facility] Comment on above: Result Comment: WALKER RED INR: 2.0 - 3.0 CONDITIONS NOT LISTED BELOW 2.5 - 3.5 FOR PROSTHETIC HEART VALVE REPLACEMENT 2.5 - 3.5 RECURRENT THROMBOSIS Performed By: #### P TT, PT ####[facility] X[address]vs[address] [place], [place] [address]Dr. Bhavani Barragan PT Coag (PPP) [Time] 12.2 s Critically high 9.0-11.6 [facility] Comment on above: Performed By: #### P TT, PT ####[facility] [address] [place], [place] [address]Dr. Bhavani Barragan PTTon 04-01-2022 aPTT Coag (Bld) [Time] 25.4 s Normal 22.3-36.2 [facility] Comment on above: Performed By: #### P TT, PT ####[facility] [address] [place] [address]Dr. Bhavani Barragan TROPONIN-Ion 04-01-2022 Troponin I.cardiac [Mass/Vol] 0.02 ng/mL Normal 0.00-0.04 [facility] Comment on above: Result Comment: REFE RENCE RANGES: 0.00 - 0.04 ng/ml NORMAL 0.05 - 0.50 ng/ml INDETERMINATE > 0.50 ng/ml CONSISTENT WITH AN M.I. Performed By: #### 2 2706 #### [facility] [address] [place] [address], [facility] UFH HEPARIN ASSAYon 04-01-20 22 UNFRACTIONATED HEPARIN >1.00 Critically high 0.30-0.70 [facility] Comment on above: Result Comment: Resu lt checked and called. Accurately read back by EYAL GRIFFIN RN ON 04/01/2022 AT 22:07 Rivaroxaban and Apixaban will interfere with the anti Xa assay used to monitor UFH and LMWH. Performed By: #### 8 [id number] #### [facility] [address] [place] [address], [facility] UNFRACTIONATED HEPARIN >1.00 Critically high 0.30-0.70 [facility] Comment on above: Result Comment: Resu lt checked and called. Accurately read back by YANICK MICHAELS RN ON 04/01/2022 AT 16:07 Rivaroxaban and Apixaban will interfere with the anti Xa assay used to monitor UFH and LMWH. Performed By: #### 8 [id number] #### [facility] [address] [place] [address], [facility] AMMONIAon 03-31-2022 Ammonia (P) [Mass/Vol] ug/dL Critically low 11-32 [facility] Comment on above: Performed By: #### A MM ####[facility] [address] [place] [address]Dr. Bhavani Barragan CBC AUTO DIFFon 03-31-2022 BASO # 0.1 103/ul Normal 0.0-0.1 [facility] Comment on above: Performed By: #### C BC ####[facility] [address] [place], [place] [address]Dr. Bhavani Barragan Basophils/100 WBC (Bld) 0.4 % Normal 0.2-2.0 [facility] Comment on above: Performed By: #### C BC ####[facility] [address] [place], [place] [address]Dr. Bhavani Barragan EO # 0.0 103/ul Normal 0.0-0.7 [facility] Comment on above: Performed By: #### C BC ####[facility] Cof[address] [place], [place] [address]Dr. Bhavani Barragan Eosinophils/100 WBC (Bld) 0.1 % Critically low 0.9-7.0 [facility] Comment on above: Performed By: #### C BC ####[facility] [address]jvf[address] [place], [place] [address]Dr. Bhavani Barragan Erythrocyte distribution width (RBC) [Ratio] 17.7 % Critically high 11.0-15.0 [facility] Comment on above: Performed By: #### C BC ####[facility] [address]rorn[address] [place], [place] [address]Dr. Bhavani Barragan Hematocrit (Bld) [Volume fraction] 36.5 % Normal 36.0-48.0 [facility] Comment on above: Performed By: #### C BC ####[facility] [address]im[address]xr[address] [place], [place] [address]Dr. Bhavani Barragan Hemoglobin (Bld) [Mass/Vol] 11.5 g/dL Critically low 12.0-16.0 [facility] Comment on above: Performed By: #### C BC ####[facility] A[address]ameihht[address] [place], [place] [address]Dr. Bhavani Barragan IG # 0.38 10e3/ul Critically high 0.00-0.03 [facility] Comment on above: Performed By: #### C BC ####[facility] [address] [place], [place] [address]DrLydia Barragan IG % 1.2 % Critically high 0.0-0.5 [facility] Comment on above: Performed By: #### C BC ####[facility] [address] [place] [address]DrLydia Barragan LYMPH # 0.7 103/ul Critically low 1.2-3.8 The [facility] Comment on above: Performed By: #### C BC ####[facility] I[address]fje[address] [place], [place] [address]DrLydia Barragan Lymphocytes/100 WBC (Bld) 2.4 % Critically low 20.5-60.0 [facility] Comment on above: Performed By: #### C BC ####[facility] Jbf[address]enn[address] [place], [place] [address]DrLydia Barragan MANUAL DIFF REQ NO Normal [facility] Comment on above: Performed By: #### C BC ####[facility] [address] [place], [place] [address]DrLydia Barragan MCH (RBC) [Entitic mass] 30.3 pg Normal 26.7-34.0 [facility] Comment on above: Performed By: #### C BC ####[facility] [address]hmw[address] [place], [place] [address]DrLydia Barragan MCHC (RBC) [Mass/Vol] 31.5 g/dL Normal 29.9-35.2 [facility] Comment on above: Performed By: #### C BC ####[facility] [address] [place], [place] [address]DrLydia Barragan MCV (RBC) [Entitic vol] 96.3 fL Normal 81.0-99.0 [facility] Comment on above: Performed By: #### C BC ####[facility] [address] [place], [place] [address]DrLydia Barragan MONO # 0.8 103/ul Normal 0.3-0.8 [facility] Comment on above: Performed By: #### C BC ####[facility] [address] [place], [place] [address]DrLydia Barragan Monocytes/100 WBC (Bld) 2.5 % Normal 1.7-12.0 [facility] Comment on above: Performed By: #### C BC ####[facility] [address] [place] [address]Dr. Bhavani Barragan NEUT # 29.0 103/ul Critically high 1.4-6.5 The [facility] Comment on above: Performed By: #### C BC ####[facility] [address] [place] [id number]. Bhavani Barragan Neutrophils/100 WBC (Bld) 93.4 % Critically high 43.0-75.0 [facility] Comment on above: Performed By: #### C BC ####[facility] [address]em[address] [place], [place] [address]Dr. Bhavani Barragan Platelet mean volume (Bld) [Entitic vol] 10.5 fL Normal 9.5-13.5 [facility] Comment on above: Performed By: #### C BC ####[facility] Dohvuhvayq239[address] [place], [place] [address]Dr. Bhavani Barragan PLT 346 103/ul Normal 150-450 [facility] Comment on above: Performed By: #### C BC ####[facility] Vjmxfpzpby616[address] [place], [place] [address]Dr. Bhavani Barragan RBC 3.79 106/ul Critically low 4.20-5.40 [facility] Comment on above: Performed By: #### C BC ####[facility] Dkgihhdmjr53[address] [place], [place] [address]Dr. Bhavani Barragan WBC 31.0 103/ul Critically high 4.0-11.0 The [facility] Comment on above: Performed By: #### C BC ####[facility] Ynmkhjqset147[address] [place], [place] [address]Dr. Bhavani Barragan CT CHEST WO CONon 03-31-2022 CT CHEST WO CON Normal [facility] LIPASEon 03-31-2022 Lipase [Catalytic activity/Vol] 3577.0 U/L Critically high 73.0-393.0 [facility] Comment on above: Performed By: #### L IPA ####[facility] [address]sz[address] [place] [address]Dr. Bhavani Barragan MRI ABDOMEN WO CONon 022 MRI ABDOMEN WO CON Normal [facility] POINT OF CARE GLUCOSEon 03-18 Glucose [Mass/Vol] 153 mg/dL Critically high 74-106 [facility] Comment on above: Performed By: #### P OCGLUC ####[facility] O[address]zqjhm[address] [place] [address]Dr. Bhavani Barragan Glucose [Mass/Vol] 158 mg/dL Critically high 74-106 [facility] Comment on above: Performed By: #### P OCGLUC ####[facility] Mzscvcgzui611[address] [place], [place] [address]Dr. Bhavani Barragan Glucose [Mass/Vol] 120 mg/dL Critically high 74-106 [facility] Comment on above: Performed By: #### P OCGLUC ####[facility] Yseclasjxh[address] [place], [place] [address]Dr. Bhavani Barragan Glucose [Mass/Vol] 74 mg/dL Normal 74-106 [facility] Comment on above: Performed By: #### P OCGLUC ####[facility] Haqwrtxzka96[address] [place], [place] [address]Dr. Bhavani Barragan PROF 14(COMP METB)on 022 Albumin [Mass/Vol] 1.9 g/dL Critically low 3.4-5.0 [facility] Comment on above: Performed By: #### C MP ####[facility] Igxfswafov[address] [place] [address]Dr. Bhavani Barragan Albumin/Globulin [Mass ratio] 0.5 {ratio} Normal [facility] Comment on above: Performed By: #### C MP ####[facility] Sqryupbspf232[address] [place], [place] [address]Dr. Bhavani Barragan ALP [Catalytic activity/Vol] 283 U/L Critically high 46-116 [facility] Comment on above: Performed By: #### C MP ####[facility] Caegileqqz316[address] [place], [place] [address]Dr. Bhavani Barragan ALT [Catalytic activity/Vol] 64 U/L Critically high 14-59 [facility] Comment on above: Performed By: #### C MP ####[facility] S[address]cbcelss[address] [place] [address]Dr. Jayceeroxi Laurel Anion gap [Moles/Vol] 11.6 mmol/L Normal [facility] Comment on above: Performed By: #### C MP ####[facility] Clnpvqwywy280[address] [place], [place] [address]Dr. Jayceeroxi Barragan AST [Catalytic activity/Vol] 52 U/L Critically high 15-37 [facility] Comment on above: Performed By: #### C MP ####[facility] Jqpiqotcza70[address] [place], [place] [address]Dr. Bhavani Barragan Bilirubin [Mass/Vol] 2.8 mg/dL Critically high 0.2-1.0 [facility] Comment on above: Performed By: #### C MP ####[facility] Ysypzrrkbj37[address] [place], [place] [address]Dr. Bhavani Barragan Calcium [Mass/Vol] 7.9 mg/dL Critically low 8.5-10.1 [facility] Comment on above: Performed By: #### C MP ####[facility] Oltlgtcztv9534[address] [place], [place] [address]Dr. Bhavani Barragan Chloride [Moles/Vol] 102 mmol/L Normal 98-107 [facility] Comment on above: Performed By: #### C MP ####[facility] Ytoqwfndlf39[address] [place], [place] [address]Dr. Bhavani Barragan CO2 [Moles/Vol] 27.4 mmol/L Normal 21.0-32.0 The [facility] Comment on above: Performed By: #### C MP ####[facility] Zsacxypfuq638[address] [place], [place] [address]Dr. Bhavani Barragan Creatinine [Mass/Vol] 1.48 mg/dL Critically high 0.55-1.02 [facility] Comment on above: Performed By: #### C MP ####[facility] Jqvbfbzekv269[address] [place], [place] [address]Dr. Bhavani Barragan EGFR-AF SINGAPOREAN 41 mL/min/1.73m2 Critically low >=60 [facility] Comment on above: Performed By: #### C MP ####[facility] Ifcalsvyhl[address] [place] [id number]. Bhavani Laurel EGFR-NON AF [place]INGAPOREAN 34 mL/min/1.73m2 Critically low >=60 [facility] Comment on above: Performed By: #### C MP ####[facility] Supkqscfxv8064 [place] [phone]. Bhavani Laurel Globulin (S) [Mass/Vol] 4.0 g/dL Normal [facility] Comment on above: Performed By: #### C MP ####[facility] Smiusjyzqa[address] [place] [address]Dr. Bhavani Laurel Glucose [Mass/Vol] 84 mg/dL Normal 74-106 [facility] Comment on above: Performed By: #### C MP ####[facility] Mliffrdxpo6684 [place] [phone]. Bhavani Laurel Potassium [Moles/Vol] 4.0 mmol/L Normal 3.5-5.1 [facility] Comment on above: Performed By: #### C MP ####[facility] H[address]wtsxmpl[address] [place], [place] [address]Dr. Bhavani Laurel Protein [Mass/Vol] 5.9 g/dL Critically low 6.4-8.2 [facility] Comment on above: Performed By: #### C MP ####[facility] Mspglufiei2224 [place] [phone]. Bhavani Laurel Sodium [Moles/Vol] 137 mmol/L Normal 136-145 [facility] Comment on above: Performed By: #### C MP ####[facility] Cecixfqzkr8393 [place] [phone]. Bhavani Laurel Urea nitrogen [Mass/Vol] 26.0 mg/dL Critically high 7.0-18.0 [facility] Comment on above: Performed By: #### C MP ####[facility] Aftxggrpje4657 [place] [phone]. Jayceeroxi Barragan Urea nitrogen/Creatinine [Mass ratio] 17.6 mg/mg Normal [facility] Comment on above: Performed By: #### C MP ####[facility] [address]rbgwojj[address] [place] [address]DrLydia Bhavani Abrragan PROTIMEon 03-31-2022 INR Coag (PPP) [Relative time] 1.34 {INR} Normal [facility] Comment on above: Performed By: #### P T, PTT ####[facility] Xhtgfzecbj[address] [place], [place] [address]DrLydia Jayceeroxi Barragan INR GUIDELINES SEE BELOW Normal [facility] Comment on above: Result Comment: WALKER RED INR: 2.0 - 3.0 CONDITIONS NOT LISTED BELOW 2.5 - 3.5 FOR PROSTHETIC HEART VALVE REPLACEMENT 2.5 - 3.5 RECURRENT THROMBOSIS Performed By: #### P T, PTT ####[facility] Blcgvafhyb474[address] [place], [place] [address]Dr. Bhavani Barragan PT Coag (PPP) [Time] 14.2 s Critically high 9.0-11.6 [facility] Comment on above: Performed By: #### P T, PTT ####[facility] Htxtwagurx[address] [place], [place] [address]DrLydia Jayceeroxi Barragan PTTon 03-31-2022 aPTT Coag (Bld) [Time] 37.6 s Critically high 22.3-36.2 [facility] Comment on above: Performed By: #### P T, PTT ####[facility] Illtupuyso415[address] [place], [place] [address]DrLydia Bhavani Barragan XR CHEST 1 Von 03-31-2022 XR CHEST 1 V Normal [facility] AMMONIAon 03-30-2022 Ammonia (P) [Moles/Vol] 30 umol/L Normal - [facility] Comment on above: Performed By: #### A MM ####[facility] Awzrsuopsm3732[address] [place], [place] [address]DrLydia Barragan CBC W MANUAL DIFFon 03-30-20 ATYPICAL LYMPH # Normal [facility] Comment on above: Performed By: #### C BCMAN ####[facility] G[address]nuyvlbh3[address] [place] [phone]. Bhavani Barragan ATYPICAL LYMPH % Normal [facility] Comment on above: Performed By: #### C BCMAN ####[facility] Yvgciczixo9110 [place] [phone]. Yilan Barragan BAND # Normal 0.0-0.3 [facility] Comment on above: Performed By: #### C BCMAN ####[facility] Wmrkefklto[address] [place] [address]Dr. Yilan Barragan BAND % Normal 0-5 [facility] Comment on above: Performed By: #### C BCJERSON ####[facility] Mopfdlcabv98[address] [place], [place] [address]Dr. Yiroxi Barragan BASOM # 0.00 103/ul Normal 0.00-0.10 [facility] Comment on above: Performed By: #### C OMID ####[facility] Gvugcuvfdv[address] [place], [place] [address]Dr. Yiroxi Barragan BASOM % 0.0 % Critically low 0.2-2.0 [facility] Comment on above: Performed By: #### C OMID ####[facility] Xpdhtfnwiz74[address] [place], [place] [address]Dr. Yilan Barragan BLAST # Normal [facility] Comment on above: Performed By: #### C OMID ####[facility] Zlovzznney224[address] [place], [place] [address]Dr. Yilan Barragan BLAST % Normal [facility] Comment on above: Performed By: #### C BCJERSON ####[facility] Uoxwswnnbd745[address] [place], [place] [address]Dr. Bhavani Barragan CORRECTED WBC Normal 4.0-11.0 [facility] Comment on above: Performed By: #### C OMID ####[facility] Orpftdurou638[address] [place], [place] [address]Dr. Yilan Barragan EOS # 0.00 103/ul Normal 0.00-0.70 [facility] Comment on above: Performed By: #### C OMID ####[facility] Jplvdnxtqf2843 [place] [phone]. Bhavani Barragan EOS% 0.0 % Critically low 0.9-7.0 [facility] Comment on above: Performed By: #### C OMID ####[facility] Ezfjksgxzq7734 [place] [phone]. Bhavani Barragan HCT 39.8 % Normal 36.0-48.0 [facility] Comment on above: Performed By: #### C OMID ####[facility] Tjywammcco0265 [place] [phone]. Bhavani Barragan HGB 12.2 g/dl Normal 12.0-16.0 [facility] Comment on above: Performed By: #### C OMID ####[facility] Rqzmewpgfa0196 [place] [address]Dr. Bhavani Barragan LYMPHM # 0.56 103/ul Critically low 1.20-3.80 [facility] Comment on above: Performed By: #### C OMID ####[facility] Jyntoyoaar[address] [place] [address]Dr. Bhavani Barragan LYMPHM% 2.0 % Critically low 20.5-60.0 [facility] Comment on above: Performed By: #### C OMID ####[facility] Axqjzrpfty0184 [place] [phone]. Bhavani Barragan MCH 29.7 pg Normal 26.7-34.0 [facility] Comment on above: Performed By: #### C OMID ####[facility] Avjrjrcauo3866 [place] [phone]. Bhavani Barragan MCHC 30.7 g/dl Normal 29.9-35.2 [facility] Comment on above: Performed By: #### C OMID ####[facility] Cngserwmkn[address] [place], [place] [address]Dr. Bhavani Barragan MCV 96.8 fL Normal 81.0-99.0 [facility] Comment on above: Performed By: #### C OMID ####[facility] Idcwnjxdjt[address] [place], [place] [address]Dr. Bhavani Barragan METAMYELOCYTE # Normal [facility] Comment on above: Performed By: #### C OMID ####[facility] Imihfotipl7141 [place], [place] [address]Co. Bhavani Barragan METAMYELOCYTE % Normal [facility] Comment on above: Performed By: #### C OMID ####[facility] Dgyranyoog7881 [place], [place] [address]Jo. Bhavani Barragan MONOM# 0.28 103/ul Critically low 0.30-0.80 [facility] Comment on above: Performed By: #### C OMID ####[facility] Akjaoxlwpy0966 [place] [phone]. Bhavani Barragan MONOM% 1.0 % Critically low 1.7-12.0 [facility] Comment on above: Performed By: #### C OMID ####[facility] Iqcxltzdks6170 [place] [phone]. Bhavani Laurel MPV 10.2 fL Normal 9.5-13.5 [facility] Comment on above: Performed By: #### C OMID ####[facility] Ixsadnfddl3113 [place] [phone]. Bhavani Barragan MYELOCYTE # Normal [facility] Comment on above: Performed By: #### C OMID ####[facility] Sgkkbablhy3335 [place], [place] [address]Bb. Bhavani Barragan MYELOCYTE % Normal [facility] Comment on above: Performed By: #### C OMID ####[facility] Kbitmwhrqp20[address] [place] [phone]. Bhavani Barragan NRBC Normal [facility] Comment on above: Performed By: #### C OMID ####[facility] Rxhmydnmrj6392 [place] [phone]. Bhavani Laurel PLT 371 103/ul Normal 150-450 [facility] Comment on above: Performed By: #### C OMID ####[facility] Mpgtmiyyvm3155 [place] [phone]. Bhavani Barragan RBC 4.11 106/ul Critically low 4.20-5.40 [facility] Comment on above: Performed By: #### C BCMAN ####[facility] Vjncgzyowa9353 [place], [place] [address]Nk. Bhavani Barargan RDW 17.4 % Critically high 11.0-15.0 [facility] Comment on above: Performed By: #### C BCMAN ####[facility] Cxjbludawh3452 [place], [place] [address]Bg. Bhavani Barragan SEG # 27.35 103/ul Critically high 1.40-6.50 [facility] Comment on above: Performed By: #### C BCMAN ####[facility] Ofqyhefdob4720 [place], [place] [address]Fa. Bhavani Barragan SEG % 97.0 % Critically high 43.0-75.0 [facility] Comment on above: Performed By: #### C BCMAN ####[facility] Pyfoknzpsx9747 [place], [place] [address]Gp. Bhavani Barragan WBC 28.2 103/ul Critically high 4.0-11.0 [facility] Comment on above: Performed By: #### C BCMAN ####[facility] Roluwajral7453 [place] [phone] Barragan POINT OF CARE GLUCOSEon 03-18 Glucose [Mass/Vol] 92 mg/dL Normal 74-106 [facility] Comment on above: Performed By: #### P OCGLUC ####[facility] Beidigjnhu1754 [place] [phone]. Bhavani Laurel Glucose [Mass/Vol] 122 mg/dL Critically high 74-106 [facility] Comment on above: Result Comment: Foll ow Protocol Performed By: #### P OCGLUC ####[facility] Vrtjoqmkyc8671 [place] [phone]. Bhavani Laurel Glucose [Mass/Vol] 107 mg/dL Critically high 74-106 [facility] Comment on above: Performed By: #### P OCGLUC ####[facility] Gipppalcjd6818 [place] [phone] Barragan PROF 14(COMP METB)on 022 Albumin [Mass/Vol] 2.0 g/dL Critically low 3.4-5.0 [facility] Comment on above: Performed By: #### C MP ####[facility] Gghcrufmmb8925 [place] [address]Dr. Bhavani Barragan Albumin/Globulin [Mass ratio] 0.5 {ratio} Normal [facility] Comment on above: Performed By: #### C MP ####[facility] Kdugjgkbvz8329 [place] [address]Dr. Bhavani Barragan ALP [Catalytic activity/Vol] 298 U/L Critically high 46-116 [facility] Comment on above: Performed By: #### C MP ####[facility] Ovxgtcrvau65[address] [place], [place] [address]Dr. Bhavani Barragan ALT [Catalytic activity/Vol] 94 U/L Critically high 14-59 [facility] Comment on above: Performed By: #### C MP ####[facility] Jsixnxajsm59[address] [place], [place] [address]Dr. Bhavani Barragan Anion gap [Moles/Vol] 12.8 mmol/L Normal [facility] Comment on above: Performed By: #### C MP ####[facility] Efkxwamncz122[address] [place], [place] [address]Dr. Bhavani Barragan AST [Catalytic activity/Vol] 73 U/L Critically high 15-37 [facility] Comment on above: Performed By: #### C MP ####[facility] Khrpbukuta9[address] [place], [place] [address]Dr. Bhavani Barragan Bilirubin [Mass/Vol] 3.6 mg/dL Critically high 0.2-1.0 [facility] Comment on above: Performed By: #### C MP ####[facility] Zxakersiim3375[address] [place], [place] [address]Dr. Bhavani Barragan Calcium [Mass/Vol] 7.8 mg/dL Critically low 8.5-10.1 [facility] Comment on above: Performed By: #### C MP ####[facility] Zgfwqweyzx10[address] [place], [place] [address]Dr. Bhavani Barragan Chloride [Moles/Vol] 103 mmol/L Normal 98-107 [facility] Comment on above: Performed By: #### C MP ####[facility] Kekukjbkoq613[address] [place], [place] [address]Dr. Bhavani Laurel CO2 [Moles/Vol] 25.2 mmol/L Normal 21.0-32.0 [facility] Comment on above: Performed By: #### C MP ####[facility] Jbjriocvfm81[address] [place], [place] [address]Dr. Bhavani Laurel Creatinine [Mass/Vol] 1.38 mg/dL Critically high 0.55-1.02 [facility] Comment on above: Performed By: #### C MP ####[facility] Whcnzhuvhe054[address] [place], [place] [address]Dr. Bhavani Barragan EGFR-AF S[place]AN 44 mL/min/1.73m2 Critically low >=60 [facility] Comment on above: Performed By: #### C MP ####[facility] Ippeijayxd640[address] [place], [place] [address]Dr. Bhavani Laurel EGFR-NON AF [place]AN 37 mL/min/1.73m2 Critically low >=60 [facility] Comment on above: Performed By: #### C MP ####[facility] Juqdbemnla564[address] [place], [place] [address]Dr. Bhavani Barragan Globulin (S) [Mass/Vol] 4.1 g/dL Normal [facility] Comment on above: Performed By: #### C MP ####[facility] Kltpyuxumq786[address] [place], [place] [address]Dr. Bhavani Barragan Glucose [Mass/Vol] 109 mg/dL Critically high 74-106 [facility] Comment on above: Performed By: #### C MP ####[facility] Psvsyvnmvp427[address] [place], [place] [address]Dr. Bhavani Barragan Potassium [Moles/Vol] 4.0 mmol/L Normal 3.5-5.1 [facility] Comment on above: Performed By: #### C MP ####[facility] Irolsaerlw35[address] [place], [place] [address]Dr. Bhavani Barragan Protein [Mass/Vol] 6.1 g/dL Critically low 6.4-8.2 [facility] Comment on above: Performed By: #### C MP ####[facility] Ixnekediij686[address] [place], [place] [address]Dr. Bhavani Barragan Sodium [Moles/Vol] 137 mmol/L Normal 136-145 [facility] Comment on above: Performed By: #### C MP ####[facility] Cbbtxrgxvz9[address] [place], [place] [address]Dr. Bhavani Barragan Urea nitrogen [Mass/Vol] 22.0 mg/dL Critically high 7.0-18.0 [facility] Comment on above: Performed By: #### C MP ####[facility] Clakismvbp46[address] [place], [place] [address]Dr. Bhavani Barragan Urea nitrogen/Creatinine [Mass ratio] 15.9 mg/mg Normal [facility] Comment on above: Performed By: #### C MP ####[facility] Cupmymgyeh1805[address] [place], [place] [address]Dr. Bhavani Barragan PROTIMEon 03-30-2022 INR Coag (PPP) [Relative time] 1.28 {INR} Normal [facility] Comment on above: Performed By: #### P T, PTT ####[facility] Khhulxgkpt[address] [place], [place] [address]Dr. Bhavani Barragan INR GUIDELINES SEE BELOW Normal [facility] Comment on above: Result Comment: WALKER RED INR: 2.0 - 3.0 CONDITIONS NOT LISTED BELOW 2.5 - 3.5 FOR PROSTHETIC HEART VALVE REPLACEMENT 2.5 - 3.5 RECURRENT THROMBOSIS Performed By: #### P T, PTT ####[facility] Dxvxclfjgm97[address] [place], [place] [address]Dr. Bhavani Barragan PT Coag (PPP) [Time] 13.6 s Critically high 9.0-11.6 [facility] Comment on above: Performed By: #### P T, PTT ####[facility] Tlnhyvlcko975[address] [place], [place] [address]Dr. Bhavani Barragan PTTon 03-30-2022 aPTT Coag (Bld) [Time] 34.9 s Normal 22.3-36.2 [facility] Comment on above: Performed By: #### P T, PTT ####[facility] Tcqqzbxeyf06[address] [place], [place] [address]Dr. Bhavani Barragan US SINGLE QUAD RT UPPERon US SINGLE QUAD RT UPPER Normal [facility] AMMONIAon 03-29-2022 Ammonia (P) [Moles/Vol] 17 umol/L Normal 11-32 [facility] Comment on above: Performed By: #### A MM ####[facility] Qicrpjwupt420[address] [place], [place] [address]Dr. Bhavani Barragan CBC W MANUAL DIFFon 03-29-20 ANISOCYTOSIS 2+ Normal [facility] Comment on above: Performed By: #### C BCMAN ####[facility] Bcxsowctpk100[address] [place], [place] [address]Dr. Bhavani Barragan ATYPICAL LYMPH # Normal [facility] Comment on above: Performed By: #### C BCMAN ####[facility] Wyfasxhaup405[address] [place], [place] [address]Dr. Bhavani Barragan ATYPICAL LYMPH % Normal [facility] Comment on above: Performed By: #### C BCMAN ####[facility] Tvwzrislav[address] [place], [place] [address]Dr. Bhavani Barragan BAND # 1.2 103/ul Critically high 0.0-0.3 [facility] Comment on above: Performed By: #### C BCMAN ####[facility] Etjkyceijo158[address] [place], [place] [address]Dr. Bhavani Barragan BAND % 4 % Normal 0-5 [facility] Comment on above: Performed By: #### C BCMAN ####[facility] Lffrhfbjeg210[address] [place], [place] [address]Dr. Bhavani Barragan BASOM # 0.00 103/ul Normal 0.00-0.10 [facility] Comment on above: Performed By: #### C BCMAN ####[facility] Ibjbqvewcr120[address] [place], [place] [address]Dr. Bhavani Barragan BASOM % 0.0 % Critically low 0.2-2.0 [facility] Comment on above: Performed By: #### C BCJERSON ####[facility] [address]fzayhmb[address] [place] [address]Dr. Bhavani Barragan BLAST # Normal [facility] Comment on above: Performed By: #### C OMID ####[facility] Nwtkvywxyw9774 [place] [id number]. Bhavani Barragan BLAST % Normal [facility] Comment on above: Performed By: #### C BCJERSON ####[facility] Hvlzorjglp29[address] [place] [address]Dr. Bhavani Barragan CORRECTED WBC Normal 4.0-11.0 [facility] Comment on above: Performed By: #### C OMID ####[facility] [address]qcnynerc24[address] [place] [address]Dr. Bhavani Barragan EOS # 0.00 103/ul Normal 0.00-0.70 [facility] Comment on above: Performed By: #### C OMID ####[facility] Xxovgzbvgt4411 [place] [address]Dr. Bhavani Barragan EOS% 0.0 % Critically low 0.9-7.0 [facility] Comment on above: Performed By: #### C OMID ####[facility] Ybcxwdeaui85[address] [place] [address]Dr. Bhavani Barragan HCT 41.4 % Normal 36.0-48.0 [facility] Comment on above: Performed By: #### C OMID ####[facility] Oxdkbszgyv48[address] [place] [address]Dr. Bhavain Barragan HGB 12.6 g/dl Normal 12.0-16.0 [facility] Comment on above: Performed By: #### C OMID ####[facility] V[address]sqszsnl[address] [place], [place] [address]Dr. Bhavani Barragan LYMPHM # 0.62 103/ul Critically low 1.20-3.80 [facility] Comment on above: Performed By: #### C OMID ####[facility] [address]wziecx[address] [place], [place] [address]Dr. Bhavani Barragan LYMPHM% 2.0 % Critically low 20.5-60.0 The [facility] Comment on above: Performed By: #### C OMID ####[facility] Jitfbyrovr28[address] [place] [phone]. Bhavani Barragan MCH 29.6 pg Normal 26.7-34.0 [facility] Comment on above: Performed By: #### C OMID ####[facility] Jqircjnxsu4416 [place] [phone]. Bhavani Barragan MCHC 30.4 g/dl Normal 29.9-35.2 [facility] Comment on above: Performed By: #### C OMID ####[facility] Xfgfjqzkxb[address] [place] [address]Dr. Bhavani Barragan MCV 97.4 fL Normal 81.0-99.0 [facility] Comment on above: Performed By: #### C OMID ####[facility] Loojmobsre[address] [place], [place] [address]Dr. Bhavani Barragan METAMYELOCYTE # Normal [facility] Comment on above: Performed By: #### C OMID ####[facility] Dyczuldtdr[address] [place] [address]Dr. Bhavani Barragan METAMYELOCYTE % Normal [facility] Comment on above: Performed By: #### C OMID ####[facility] Kufauofekb[address] [place] [address]Dr. Bhavani Barragan MONOM# 0.93 103/ul Critically high 0.30-0.80 The [facility] Comment on above: Performed By: #### C OMID ####[facility] Xtettqtcvc0326 [place] [phone]. Bhavani Barragan MONOM% 3.0 % Normal 1.7-12.0 [facility] Comment on above: Performed By: #### C OMID ####[facility] Yilzvvsamr9583 [place] [phone]. Bhavani Barragan MPV 9.7 fL Normal 9.5-13.5 [facility] Comment on above: Performed By: #### C OMID ####[facility] Mxhupgqruc3153 [place], [place] [address]Vp. Bhavani Barragan MYELOCYTE # Normal [facility] Comment on above: Performed By: #### C BCMAN ####[facility] Dgkrdoerct0506 [place], [place] [address]Hu. Bhavani Barragan MYELOCYTE % Normal [facility] Comment on above: Performed By: #### C BCMAN ####[facility] Amfrmbybfm5273 [place], [place] [address]Qk. Bhavani Barragan NRBC Normal [facility] Comment on above: Performed By: #### C BCJERSON ####[facility] Qqlhegbzam0292 [place] [phone]. Bhavani Barragan PLT 362 103/ul Normal 150-450 [facility] Comment on above: Performed By: #### C BCJERSON ####[facility] Oopmglfgie6684 [place] [phone]. Bhavani Barragan RBC 4.25 106/ul Normal 4.20-5.40 [facility] Comment on above: Performed By: #### C BCJERSON ####[facility] Dsyygnjbqd4737 [place] [phone]. Bhavani Barragan RDW 17.2 % Critically high 11.0-15.0 [facility] Comment on above: Performed By: #### C BCJERSON ####[facility] Xovxjdxbrc3551 [place] [phone]. Bhavani Barragan SEG # 28.12 103/ul Critically high 1.40-6.50 [facility] Comment on above: Performed By: #### C BCMAN ####[facility] Jtbufuejjn2557 [place], [place] [address]Yj. Bhavani Barragan SEG % 91.0 % Critically high 43.0-75.0 [facility] Comment on above: Performed By: #### C BCMAN ####[facility] Aamopivpqu4523 [place], [place] [address]Cl. Bhavani Barragan WBC 30.9 103/ul Critically high 4.0-11.0 [facility] Comment on above: Result Comment: repe ated Performed By: #### C BCMAN ####[facility] Mbkybhinuw8814 [place] [phone]. Bhavani Laurel CT ABD/PELV W CONon 03-29-[address] ABD/PELV W CON Normal [facility] POINT OF CARE GLUCOSEon 03-18 Glucose [Mass/Vol] 102 mg/dL Normal 74-106 [facility] Comment on above: Performed By: #### P OCGLUC ####[facility] Nyxpqlumxy027[address] [place] [address]Dr. Bhavani Barragan Glucose [Mass/Vol] 100 mg/dL Normal 74-106 [facility] Comment on above: Performed By: #### P OCGLUC ####[facility] Ldlglinaec5414 [place] [address]Dr. Jayceeroxi Barragan Glucose [Mass/Vol] 132 mg/dL Critically high 74-106 [facility] Comment on above: Performed By: #### P OCGLUC ####[facility] Jyqiunzfzg0980 [place] [address]Dr. Bhavani Barragan Glucose [Mass/Vol] 130 mg/dL Critically high 74-106 [facility] Comment on above: Performed By: #### P OCGLUC ####[facility] Awsiwydlor6300 [place] [address]Dr. Bhavani Barragan PROF 14(COMP METB)on 022 Albumin [Mass/Vol] 2.1 g/dL Critically low 3.4-5.0 [facility] Comment on above: Performed By: #### C MP ####[facility] Zbtymefirl5609 [place] [address]Dr. Bhavani Barragan Albumin/Globulin [Mass ratio] 0.6 {ratio} Normal [facility] Comment on above: Performed By: #### C MP ####[facility] Slnleqacei1391 [place] [address]Dr. Bhavani Barragan ALP [Catalytic activity/Vol] 277 U/L Critically high 46-116 [facility] Comment on above: Performed By: #### C MP ####[facility] Utyoszjfuh6281 [place] [phone]. Bhavani Barragan ALT [Catalytic activity/Vol] 90 U/L Critically high 14-59 [facility] Comment on above: Performed By: #### C MP ####[facility] Doijrlzcbx3712 [place] [phone]. Bhavani Barragan Anion gap [Moles/Vol] 13.1 mmol/L Normal [facility] Comment on above: Performed By: #### C MP ####[facility] Bopfqhwofo7773 [place] [address]Dr. Bhavani Barragan AST [Catalytic activity/Vol] 56 U/L Critically high 15-37 [facility] Comment on above: Performed By: #### C MP ####[facility] Rxxzrinspb9588 [place] [address]Dr. Bhavani Barragan Bilirubin [Mass/Vol] 4.1 mg/dL Critically high 0.2-1.0 [facility] Comment on above: Performed By: #### C MP ####[facility] Jxjsepjhkv[address] [place], [place] [address]Dr. Bhavani Barragan Calcium [Mass/Vol] 7.9 mg/dL Critically low 8.5-10.1 [facility] Comment on above: Performed By: #### C MP ####[facility] Wkhdqkvbss[address] [place], [place] [address]Dr. Bhavani Barragan Chloride [Moles/Vol] 103 mmol/L Normal 98-107 [facility] Comment on above: Performed By: #### C MP ####[facility] Cguhzwpfoe9995 [place] [address]Dr. Bhavani Barragan CO2 [Moles/Vol] 25.9 mmol/L Normal 21.0-32.0 The [facility] Comment on above: Performed By: #### C MP ####[facility] Xcfvljcttw9819 [place] [address]Dr. Bhavani Barragan Creatinine [Mass/Vol] 1.32 mg/dL Critically high 0.55-1.02 [facility] Comment on above: Performed By: #### C MP ####[facility] Ktksaemgfh9796 [place] [phone]. Bhavani Barragan EGFR-AF SINGAPOREAN 47 mL/min/1.73m2 Critically low >=60 [facility] Comment on above: Performed By: #### C MP ####[facility] Rntmwjwerw4251 [place] [phone]. Bhavani Barragan EGFR-NON AF SINGAPOREAN 39 mL/min/1.73m2 Critically low >=60 [facility] Comment on above: Performed By: #### C MP ####[facility] Yakpglgwea1455 [place] [phone]. Bhavani Barragan Globulin (S) [Mass/Vol] 3.7 g/dL Normal [facility] Comment on above: Performed By: #### C MP ####[facility] Jmfjydlmek5562 [place] [phone]. Bhavani Barragan Glucose [Mass/Vol] 133 mg/dL Critically high 74-106 [facility] Comment on above: Performed By: #### C MP ####[facility] Crksatbevy2231 [place] [phone]. Bhavani Barragan Potassium [Moles/Vol] 4.0 mmol/L Normal 3.5-5.1 [facility] Comment on above: Performed By: #### C MP ####[facility] Dekthxqanp8313 [place] [phone]. Bhavani Barragan Protein [Mass/Vol] 5.8 g/dL Critically low 6.4-8.2 [facility] Comment on above: Performed By: #### C MP ####[facility] Jblvsvnnxu0829 [place] [phone]. Bhavani Barragan Sodium [Moles/Vol] 138 mmol/L Normal 136-145 [facility] Comment on above: Performed By: #### C MP ####[facility] Yjpesdvrhf9527 [place] [phone]. Bhavani Barragan Urea nitrogen [Mass/Vol] 19.0 mg/dL Critically high 7.0-18.0 [facility] Comment on above: Performed By: #### C MP ####[facility] Kolfjdqwpo0720 [place] [address]Dr. Bhavani Barragan Urea nitrogen/Creatinine [Mass ratio] 14.4 mg/mg Normal [facility] Comment on above: Performed By: #### C MP ####[facility] Qrsqvbzcrn[address] [place], [place] [address]Dr. Bhavani Barragan PROTIMEon 03-29-2022 INR Coag (PPP) [Relative time] 1.33 {INR} Normal [facility] Comment on above: Performed By: #### P T, PTT ####[facility] Ytklbnolga96[address] [place], [place] [address]Dr. Bhavani Barragan INR GUIDELINES SEE BELOW Normal [facility] Comment on above: Result Comment: WALKER RED INR: 2.0 - 3.0 CONDITIONS NOT LISTED BELOW 2.5 - 3.5 FOR PROSTHETIC HEART VALVE REPLACEMENT 2.5 - 3.5 RECURRENT THROMBOSIS Performed By: #### P T, PTT ####[facility] Arxzprlmsm[address] [place], [place] [address]Dr. Bhavani Barragan PT Coag (PPP) [Time] 14.1 s Critically high 9.0-11.6 [facility] Comment on above: Performed By: #### P T, PTT ####[facility] Zjeuoyerjv[address] [place], [place] [address]Dr. Bhavani Barragan PTTon 03-29-2022 aPTT Coag (Bld) [Time] 36.0 s Normal 22.3-36.2 [facility] Comment on above: Performed By: #### P T, PTT ####[facility] Pyyykdpgbn105[address] [place], [place] [address]Dr. Bhavani Barragan AMMONIAon 03-28-2022 Ammonia (P) [Moles/Vol] 22 umol/L Normal - [facility] Comment on above: Performed By: #### A MM ####[facility] Geihfmevqa[address] [place], [place] [address]Dr. Bhavani Barragan CBC W MANUAL DIFFon 03-28-20 ANISOCYTOSIS 2+ Normal [facility] Comment on above: Performed By: #### C BCMAN ####[facility] Dccfkgcfnb4442 [place] [phone]. Bhavani Barragan ATYPICAL LYMPH # Normal [facility] Comment on above: Performed By: #### C BCMAN ####[facility] Lopaenvzhy9888 [place] [address]Dr. Bhavani Barragan ATYPICAL LYMPH % Normal [facility] Comment on above: Performed By: #### C BCJERSON ####[facility] Tvhiyqniim9551 [place] [address]Dr. Bhavani Barragan BAND # 0.8 103/ul Critically high 0.0-0.3 [facility] Comment on above: Performed By: #### C OMID ####[facility] Jhcwceytjc[address] [place], [place] [address]Dr. Bhavani Barragan BAND % 3 % Normal 0-5 [facility] Comment on above: Performed By: #### C OMID ####[facility] Xchqlfqxox30[address] [place], [place] [address]Dr. Bhavani Barragan BASOM # 0.00 103/ul Normal 0.00-0.10 [facility] Comment on above: Performed By: #### C OMID ####[facility] Mnncstxuna92[address] [place], [place] [address]Dr. Bhavani Barragan BASOM % 0.0 % Critically low 0.2-2.0 [facility] Comment on above: Performed By: #### C OMID ####[facility] Odwsmqecrg89[address] [place], [place] [address]Dr. Bhavani Barragan BLAST # Normal [facility] Comment on above: Performed By: #### C OMID ####[facility] Xdnlojjrhp75[address] [place], [place] [address]Dr. Bhavani Barragan BLAST % Normal [facility] Comment on above: Performed By: #### C OMID ####[facility] Tzismamkmh64[address] [place], [place] [address]Dr. Bhavani Barragan CORRECTED WBC Normal 4.0-11.0 The [facility] Comment on above: Performed By: #### C OMID ####[facility] Sou[address]xc[address] [place] [address]Cz. Bhavani Barragan EOS # 0.00 103/ul Normal 0.00-0.70 [facility] Comment on above: Performed By: #### C OMID ####[facility] Ajlfsibvch6310 [place] [phone]. Bhavani Barragan EOS% 0.0 % Critically low 0.9-7.0 [facility] Comment on above: Performed By: #### C OMID ####[facility] Njiwdoojer4895 [place] [phone]. Bhavani Barragan HCT 38.9 % Normal 36.0-48.0 [facility] Comment on above: Performed By: #### C OMID ####[facility] Wvihxgcpbk9303 [place] [phone]. Bhavani Barragan HGB 11.9 g/dl Critically low 12.0-16.0 [facility] Comment on above: Performed By: #### C OMID ####[facility] Kposobmiof9289 [place] [phone]. Bhavani Barragan LYMPHM # 0.78 103/ul Critically low 1.20-3.80 [facility] Comment on above: Performed By: #### C OMID ####[facility] Ufwwhqcadj4099 [place] [phone]. Bhavani Barrgaan LYMPHM% 3.0 % Critically low 20.5-60.0 [facility] Comment on above: Performed By: #### C OMID ####[facility] Ghjfvfugik6010 [place] [phone]. Bhavani Barragan MCH 29.8 pg Normal 26.7-34.0 [facility] Comment on above: Performed By: #### C OMID ####[facility] Elxdotahks2785 [place] [phone]. Bhavani Barragan MCHC 30.6 g/dl Normal 29.9-35.2 [facility] Comment on above: Performed By: #### C OMID ####[facility] Svwvbiiizz3151 [place] [phone]. Bhavani Barragan MCV 97.3 fL Normal 81.0-99.0 [facility] Comment on above: Performed By: #### C OMID ####[facility] Fbcfuhoqal6963 [place] [phone]. Bhavani Barragan METAMYELOCYTE # Normal [facility] Comment on above: Performed By: #### C OMID ####[facility] Yqhbkjpxxf6507 [place], [place] [address]At. Bhavani Barragan METAMYELOCYTE % Normal [facility] Comment on above: Performed By: #### C OMID ####[facility] Fxiuueyqac0451 [place] [phone]. Bhavani Barragan MONOM# 0.78 103/ul Normal 0.30-0.80 [facility] Comment on above: Performed By: #### C OMID ####[facility] Araeraidab2153 [place] [phone]. Bhavani Barragan MONOM% 3.0 % Normal 1.7-12.0 [facility] Comment on above: Performed By: #### C OMID ####[facility] Rnfsqxctnh1538 [place] [phone]. Bhavani Barragan MPV 10.6 fL Normal 9.5-13.5 [facility] Comment on above: Performed By: #### C OMID ####[facility] Vwwilauvbf4142 [place] [phone]. Bhavani Barragan MYELOCYTE # Normal [facility] Comment on above: Performed By: #### C OMID ####[facility] Degzyscnvb1816 [place] [phone]. Bhavani Barragan MYELOCYTE % Normal [facility] Comment on above: Performed By: #### C OMID ####[facility] Zmmmnmqcer[address] [place], [place] [address]Dr. Bhavani Barragan NRBC Normal [facility] Comment on above: Performed By: #### C OMID ####[facility] Pqhjwxypjd9329 [place] [phone]. Bhavani Barragan PLT 402 103/ul Normal 150-450 [facility] Comment on above: Performed By: #### C OMID ####[facility] Bimshqlmon4852 [place], [place] [address]Do. Bhavani Barragan RBC 4.00 106/ul Critically low 4.20-5.40 [facility] Comment on above: Performed By: #### C OMID ####[facility] Celgktisvt8139 [place], [place] [address]Ls. Bhavani Barragan RDW 16.7 % Critically high 11.0-15.0 [facility] Comment on above: Performed By: #### C OMID ####[facility] Qkykccjkuc7682 [place], [place] [address]Cz. Bhavani Barragan SEG # 23.66 103/ul Critically high 1.40-6.50 [facility] Comment on above: Performed By: #### C OMID ####[facility] Ztkrywqdmh4154 [place], [place] [address]Ml. Bhavani Barragan SEG % 91.0 % Critically high 43.0-75.0 [facility] Comment on above: Performed By: #### C OMID ####[facility] Qjwaiiofpe0359 [place], [place] [address]Na. Bhavani Laurel WBC 26.0 103/ul Critically high 4.0-11.0 [facility] Comment on above: Performed By: #### C OMID ####[facility] Mxsqoovyzr0546 [place], [place] [address]DcLydia Barragan PROF 14(COMP METB)on 022 Albumin [Mass/Vol] 2.1 g/dL Critically low 3.4-5.0 [facility] Comment on above: Performed By: #### C MP ####[facility] Kkoijptxzo9422 [place], [place] [address]RtLydia Barragan Albumin/Globulin [Mass ratio] 0.6 {ratio} Normal [facility] Comment on above: Performed By: #### C MP ####[facility] Cspexhrzzl5758 [place], [place] [address]OsLydia Barragan ALP [Catalytic activity/Vol] 235 U/L Critically high 46-116 [facility] Comment on above: Performed By: #### C MP ####[facility] Aeilixbnka9492 [place] [phone]. Bhavani Barragan ALT [Catalytic activity/Vol] 112 U/L Critically high 14-59 [facility] Comment on above: Performed By: #### C MP ####[facility] Rwpnqpxjxk1569 [place] [phone]. Bhavani Barragan Anion gap [Moles/Vol] 12.3 mmol/L Normal [facility] Comment on above: Performed By: #### C MP ####[facility] Xtlmwfwbhl0585 [place] [phone]. Bhavani Barragan AST [Catalytic activity/Vol] 57 U/L Critically high 15-37 [facility] Comment on above: Performed By: #### C MP ####[facility] Leqpqfhedu0985 [place] [phone]. Bhavani Laurel Bilirubin [Mass/Vol] 1.6 mg/dL Critically high 0.2-1.0 [facility] Comment on above: Performed By: #### C MP ####[facility] Edvkduksyl6363 [place] [phone]. Bhavani Laurel Calcium [Mass/Vol] 7.6 mg/dL Critically low 8.5-10.1 [facility] Comment on above: Performed By: #### C MP ####[facility] Ieasxbxjji8776 [place] [phone]. Bhavani Laurel Chloride [Moles/Vol] 104 mmol/L Normal 98-107 [facility] Comment on above: Performed By: #### C MP ####[facility] Sgsnjgrnje8784 [place] [phone]. Bhavani Laurel CO2 [Moles/Vol] 25.5 mmol/L Normal 21.0-32.0 The [facility] Comment on above: Performed By: #### C MP ####[facility] Xfwsgyqncs3047 [place] [phone]. Bhavani Laurel Creatinine [Mass/Vol] 1.28 mg/dL Critically high 0.55-1.02 [facility] Comment on above: Performed By: #### C MP ####[facility] Xyliwsdvyy6328 [place] [phone]. Bhavani Barragan EGFR-AF SINGAPOREAN 48 mL/min/1.73m2 Critically low >=60 [facility] Comment on above: Performed By: #### C MP ####[facility] Zsqwbmuqwo6428 [place] [phone]. Bhavani Barragna EGFR-NON AF SINGAPOREAN 40 mL/min/1.73m2 Critically low >=60 [facility] Comment on above: Performed By: #### C MP ####[facility] Qmjitoitbx2699 [place] [phone]. Bhavani Laurel Globulin (S) [Mass/Vol] 3.7 g/dL Normal [facility] Comment on above: Performed By: #### C MP ####[facility] Xgepgnfzxl5484 [place] [address]Dr. Bhavani Barragan Glucose [Mass/Vol] 69 mg/dL Critically low 74-106 [facility] Comment on above: Performed By: #### C MP ####[facility] Hzfvdbesep4871 [place] [phone]. Bhavani Laurel Potassium [Moles/Vol] 3.8 mmol/L Normal 3.5-5.1 [facility] Comment on above: Performed By: #### C MP ####[facility] Odyhgldycr3537 [place] [phone]. Bhavani Barragan Protein [Mass/Vol] 5.8 g/dL Critically low 6.4-8.2 [facility] Comment on above: Performed By: #### C MP ####[facility] Lqyczfqkqq5916 [place] [address]Dr. Bhavani Barragan Sodium [Moles/Vol] 138 mmol/L Normal 136-145 [facility] Comment on above: Performed By: #### C MP ####[facility] Cbnqsnrnok6554 [place] [phone]. Bhavani Laurel Urea nitrogen [Mass/Vol] 18.0 mg/dL Normal 7.0-18.0 [facility] Comment on above: Performed By: #### C MP ####[facility] Tfnlfxldbi[address] [place], [place] [address]Dr. Bhavani Barragan Urea nitrogen/Creatinine [Mass ratio] 14.1 mg/mg Normal [facility] Comment on above: Performed By: #### C MP ####[facility] Vcwcfneyuj[address] [place], [place] [address]Dr. Bhavani Barragan PROTIMEon 03-28-2022 INR Coag (PPP) [Relative time] 1.38 {INR} Normal [facility] Comment on above: Performed By: #### P T, PTT ####[facility] Vhvvhougno[address] [place], [place] [address]Dr. Bhavani Barragan INR GUIDELINES SEE BELOW Normal [facility] Comment on above: Result Comment: WALKER RED INR: 2.0 - 3.0 CONDITIONS NOT LISTED BELOW 2.5 - 3.5 FOR PROSTHETIC HEART VALVE REPLACEMENT 2.5 - 3.5 RECURRENT THROMBOSIS Performed By: #### P T, PTT ####[facility] Jtlacymhwp[address] [place], [place] [address]Dr. Bhavani Barragan PT Coag (PPP) [Time] 14.6 s Critically high 9.0-11.6 [facility] Comment on above: Performed By: #### P T, PTT ####[facility] Dcjdagmbje44[address] [place], [place] [address]Dr. Bhavani Barragan PTTon 03-28-2022 aPTT Coag (Bld) [Time] 36.6 s Critically high 22.3-36.2 [facility] Comment on above: Performed By: #### P T, PTT ####[facility] Sltpffaeja157[address] [place], [place] [address]Dr. Bhavani Barragan RESPIRATORY PANEL PLUSon Adenovirus Not detected Normal NOT DETECTED [facility] Comment on above: Performed By: #### R SPLUS ####[facility] Zypdsveelp1970[address] [place], [place] [address]Dr. Bhavani Barragan B. Parapertusis Not detected Normal NOT DETECTED [facility] Comment on above: Performed By: #### R SPLUS ####[facility] Vhfpwhyfhs6925 [place] [address]Dr. Yiroxi Barragan B. Pertussis Not detected Normal NOT DETECTED The [facility] Comment on above: Performed By: #### R SPLUS ####[facility] Rvavncnofx[address] [place], [place] [address]Dr. Yilan Barragan Chlamydia Pneumoniae Not detected Normal NOT DETECTED [facility] Comment on above: Performed By: #### R SPLUS ####[facility] Auatxgabhb994[address] [place], [place] [address]Dr. Yiroxi Barragan Coronavirus 229E Not detected Normal NOT DETECTED [facility] Comment on above: Performed By: #### R SPLUS ####[facility] Cezdalczir45[address] [place], [place] [address]Dr. Yiroxi Barragan Coronavirus HKU1 Not detected Normal NOT DETECTED [facility] Comment on above: Performed By: #### R SPLUS ####[facility] Emvirimkci24[address] [place], [place] [address]Dr. Yilan Barragan Coronavirus NL63 Not detected Normal NOT DETECTED [facility] Comment on above: Performed By: #### R SPLUS ####[facility] Kiarbdfzqr[address] [place], [place] [address]Dr. Yilan Barragan Coronavirus OC43 Not detected Normal NOT DETECTED [facility] Comment on above: Performed By: #### R SPLUS ####[facility] Dcbyguhfhm065[address] [place], [place] [address]Dr. Yilan Barragan Influenza A H1 2009 Not detected Normal NOT DETECTED [facility] Comment on above: Performed By: #### R SPLUS ####[facility] Iivijtexwc108[address] [place], [place] [address]Dr. Yilan Barragan Influenza A H3 Not detected Normal NOT DETECTED The [facility] Comment on above: Performed By: #### R SPLUS ####[facility] Javunmkgas299[address] [place], [place] [address]Dr. Yilan Barragan Influenza B Not detected Normal NOT DETECTED The [facility] Comment on above: Performed By: #### R SPLUS ####[facility] Lmcuamflrf[address] [place] [address]Dr. Bhavani Barragan Metapneumovirus Not detected Normal NOT DETECTED The [facility] Comment on above: Performed By: #### R SPLUS ####[facility] Hnxdhkhrce37[address] [place] [address]Dr. Bhavani Barragan Mycoplas. Pneumoniae Not detected Normal NOT DETECTED [facility] Comment on above: Performed By: #### R SPLUS ####[facility] Fkpvpyvwnv40[address] [place] [address]Dr. Bhavani Barragan Parainfluenza 1 Not detected Normal NOT DETECTED The [facility] Comment on above: Performed By: #### R SPLUS ####[facility] Bquphbnvxt36[address] [place], [place] [address]Dr. Bhavani Barragan Parainfluenza 2 Not detected Normal NOT DETECTED The [facility] Comment on above: Performed By: #### R SPLUS ####[facility] Uwquuahwqw[address] [place], [place] [address]Dr. Bhavani Barragan Parainfluenza 3 Not detected Normal NOT DETECTED The [facility] Comment on above: Performed By: #### R SPLUS ####[facility] Hocyiwzvqm211[address] [place], [place] [address]Dr. Bhavani Barragan Parainfluenza 4 Not detected Normal NOT DETECTED The [facility] Comment on above: Performed By: #### R SPLUS ####[facility] Hztvsllcqi8218[address] [place], [place] [address]Dr. Bhavani Barragan Rhino/Enterovirus Not detected Normal NOT DETECTED [facility] Comment on above: Performed By: #### R SPLUS ####[facility] Upadzsahxy[address] [place] [address]Dr. Bhavani Barragan RP2 Header 1 RESPIRATORY PANEL: VIRUSES Normal [facility] Comment on above: Performed By: #### R SPLUS ####[facility] Nnjmkozngf232[address] [place], [place] [address]Dr. Jayceelan Barragan RP2 Header 2 RESPIRATORY PANEL: BACTERIA Normal [facility] Comment on above: Performed By: #### R SPLUS ####[facility] Pesdfwatve0273 [place] [address]Dr. Bhavani Barragan RSV Not detected Normal NOT DETECTED The [facility] Comment on above: Performed By: #### R SPLUS ####[facility] Hgqzxwitss8868 [place] [address]Dr. Bhavani Barragan SARS-CoV-2 (COVID-19) RNA MATTHEW+probe Ql (Unsp spec) Not detected Normal NOT DETECTED [facility] Comment on above: Performed By: #### R SPLUS ####[facility] Ozpwsupmrz978[address] [place], [place] [address]Dr. Bhavani Barragan AMMONIAon 03-27-2022 Ammonia (P) [Moles/Vol] 22 umol/L Normal 11-32 [facility] Comment on above: Performed By: #### A MM ####[facility] Srmthdkvwu[address] [place], [place] [address]Dr. Bhavani Barragan BLOOD GASES BTYon 03-27-2022 02 MODE NASAL CANNULA Normal The [facility] Comment on above: Performed By: #### A BG ####[facility] Izjhwssmlu986[address] [place], [place] [address]Dr. Bhavani Barragan ALLENS TEST Positive Normal [facility] Comment on above: Performed By: #### A BG ####[facility] Hbcgsivmwc214[address] [place], [place] [address]Dr. Bhavani Barragan Base excess Calc (Bld) [Moles/Vol] 1.4 mmol/L Normal -2.0-2.0 [facility] Comment on above: Performed By: #### A BG ####[facility] Cndxmehjzz26[address] [place], [place] [address]Dr. Bhavani Barragan BIPAP PRESSURE Normal The [facility] Comment on above: Performed By: #### A BG ####[facility] Epicpumxiy6622[address] [place], [place] [address]Dr. Bhavani Barragan CO2 [Moles/Vol] 50.8 mmol/L Critically high 23.0-28.0 [facility] Comment on above: Performed By: #### A BG ####[facility] Ldaazrjkrb[address] [place], [place] [address]Dr. Bhavani Barragan CPAP Normal [facility] Comment on above: Performed By: #### A BG ####[facility] Yipintfmzc4474 [place] [address]Dr. Bhavani Barragan FIO2 Normal [facility] Comment on above: Performed By: #### A BG ####[facility] Jgrumamddf054[address] [place], [place] [address]Dr. Bhavani Barragan HCO3 (Bld) [Moles/Vol] 25.6 mmol/L Normal 22.0-26.0 [facility] Comment on above: Performed By: #### A BG ####[facility] Oaekzjakbw34[address] [place], [place] [address]Dr. Bhavani Barragan LPM 5 Normal [facility] Comment on above: Performed By: #### A BG ####[facility] Mcahgplpfs2632[address] [place], [place] [address]Dr. Bhavani Barragan MINUTE VOLUME Normal [facility] Comment on above: Performed By: #### A BG ####[facility] Sjxkwhyuzf3[address] [place], [place] [address]Dr. Bhavani Barragan Oxygen (Bld) [Partial pressure] 56.6 mm[Hg] Critically low 80.0-100.0 [facility] Comment on above: Performed By: #### A BG ####[facility] Mxwrwzdufk30[address] [place], [place] [address]Dr. Bhavani Barragan Oxygen saturation in Blood 91.3 % Critically low 95.0-100.0 [facility] Comment on above: Performed By: #### A BG ####[facility] Unujwwiovu617[address] [place], [place] [address]Dr. Bhavani Barragan PCO2 36.1 mmHg Normal 35.0-45.0 [facility] Comment on above: Performed By: #### A BG ####[facility] Sgtnbcwpbz117[address] [place], [place] [address]Dr. Bhavani Barragan PEEP Normal [facility] Comment on above: Performed By: #### A BG ####[facility] Ehibeqynqu552[address] [place], [place] [address]Dr. Bhavani Barragan pH (Bld) 7.454 [pH] Critically high 7.350-7.450 The [facility] Comment on above: Performed By: #### A BG ####[facility] Qderwwzchq06[address] [place] [address]Dr. Bhavani Barragan PIP [facility] Comment on above: Performed By: #### A BG ####[facility] Qvlrjyqepp0452 [place] [address]Dr. Bhavani Barragan PS [facility] Comment on above: Performed By: #### A BG ####[facility] Dbkeqhagbj6442 [place] [address]Dr. Bhavani Barragan PUNCTURE SITE LR Normal The [facility] Comment on above: Performed By: #### A BG ####[facility] Skaumuqsgk807[address] [place], [place] [address]Dr. Bhavani Barragan RATE [facility] Comment on above: Performed By: #### A BG ####[facility] Dxmkcxkoye194[address] [place], [place] [address]Dr. Bhavani Barragan VENT MODE [facility] Comment on above: Performed By: #### A BG ####[facility] Byyxpryuos936[address] [place], [place] [address]Dr. Bhavani Barragan VT [facility] Comment on above: Performed By: #### A BG ####[facility] Ljhthrnwla20[address] [place], [place] [address]Dr. Bhavani Barragan CBC W MANUAL DIFFon 03-27-20 22 ANISOCYTOSIS 2+ [facility] Comment on above: Performed By: #### C BCMAN ####[facility] Vghqmggfzy97[address] [place] [address]Dr. Bhavani Barragan ATYPICAL LYMPH # Normal [facility] Comment on above: Performed By: #### C BCMAN ####[facility] Umlkigyyee87[address] [place], [place] [address]Dr. Bhavani Barragan ATYPICAL LYMPH % [facility] Comment on above: Performed By: #### C BCMAN ####[facility] Oqyrsdixyj961[address] [place], [place] [address]Dr. Bhavani Barragan BAND # 1.5 103/ul Critically high 0.0-0.3 [facility] Comment on above: Performed By: #### C BCMAN ####[facility] Ikpaferczb8535 [place] [address]Dr. Bhavani Barragan BAND % 5 % Normal 0-5 [facility] Comment on above: Performed By: #### C BCMAN ####[facility] Umvlbwfsae2[address] [place] [address]Dr. Bhavani Barragan BASOM # 0.00 103/ul Normal 0.00-0.10 [facility] Comment on above: Performed By: #### C BCJERSON ####[facility] Dhwndwccqo565[address] [place], [place] [address]Dr. Bhavani Barragan BASOM % 0.0 % Critically low 0.2-2.0 The [facility] Comment on above: Performed By: #### C BCJERSON ####[facility] Okonhlhtgc957[address] [place], [place] [address]Dr. Bhavani Barragan BLAST # Normal [facility] Comment on above: Performed By: #### C BCJERSON ####[facility] Zvucawxpiq7[address] [place], [place] [address]Dr. Bhavani Barragan BLAST % Normal [facility] Comment on above: Performed By: #### C BCJERSON ####[facility] Yswjgwbgkr[address] [place], [place] [address]Dr. Bhavani Barragan CORRECTED WBC Normal 4.0-11.0 The [facility] Comment on above: Performed By: #### C BCMAN ####[facility] Quwnaijqvp805[address] [place], [place] [address]Dr. Bhavani Barragan EOS # 0.00 103/ul Normal 0.00-0.70 [facility] Comment on above: Performed By: #### C BCMAN ####[facility] Xssefaekpk54[address] [place], [place] [address]Dr. Bhavani Barragan EOS% 0.0 % Critically low 0.9-7.0 The [facility] Comment on above: Performed By: #### C BCMAN ####[facility] K[address]vt[address]qxsu0154 [place], [place] [address]Dm. Bhavani Barragan HCT 41.4 % Normal 36.0-48.0 [facility] Comment on above: Performed By: #### C OMID ####[facility] Okthehcnky0967 [place], [place] [address]Wj. Bhavani Barragan HGB 13.0 g/dl Normal 12.0-16.0 [facility] Comment on above: Performed By: #### C OMID ####[facility] Vaviwfgpcb4955 [place] [address]Dr. Bhavani Barragan LYMPHM # 0.60 103/ul Critically low 1.20-3.80 [facility] Comment on above: Performed By: #### C OMID ####[facility] Vhzjwdhvaw1048 [place] [address]Dr. Bhavani Barragan LYMPHM% 2.0 % Critically low 20.5-60.0 The [facility] Comment on above: Performed By: #### C OMID ####[facility] Iejygcdmao3868 [place] [address]Dr. Bhavani Barragan MCH 30.1 pg Normal 26.7-34.0 [facility] Comment on above: Performed By: #### C OMID ####[facility] Qxlwibpivh0188 [place] [address]Dr. Bhavani Barragan MCHC 31.4 g/dl Normal 29.9-35.2 [facility] Comment on above: Performed By: #### C OMID ####[facility] Fpxemwhxbq3841 [place] [address]Dr. Bhavani Barragan MCV 95.8 fL Normal 81.0-99.0 [facility] Comment on above: Performed By: #### C OMID ####[facility] Rmlhhnuuyd6830 [place] [address]Dr. Bhavani Barragan METAMYELOCYTE # Normal [facility] Comment on above: Performed By: #### C OMID ####[facility] Eebchsgjuh8046 [place] [address]Dr. Bhavani Barragan METAMYELOCYTE % Normal [facility] Comment on above: Performed By: #### C OMID ####[facility] Sqirodxwqj0897 [place], [place] [address]Qy. Bhavani Barragan MONOM# 0.91 103/ul Critically high 0.30-0.80 [facility] Comment on above: Performed By: #### C OMID ####[facility] Enjtywxxzf8166 [place], [place] [address]Cm. Bhavani Barragan MONOM% 3.0 % Normal 1.7-12.0 [facility] Comment on above: Performed By: #### C OMID ####[facility] Jzwpvegnyq9447 [place], [place] [address]Tw. Bhavani Barragan MPV 10.4 fL Normal 9.5-13.5 [facility] Comment on above: Performed By: #### C OMID ####[facility] Jcfbqspiqb1292 [place] [phone]. Bhavani Barragan MYELOCYTE # Normal [facility] Comment on above: Performed By: #### C OMID ####[facility] Kqbegqlkiw0781 [place], [place] [address]Vs. Bhavani Barragan MYELOCYTE % Normal [facility] Comment on above: Performed By: #### C OMID ####[facility] Almhhongwc0522 [place], [place] [address]Vy. Bhavani Barragan NRBC Normal [facility] Comment on above: Performed By: #### C OMID ####[facility] Vylmiqtjby9734 [place] [phone]. Bhavani Barragan PLT 431 103/ul Normal 150-450 [facility] Comment on above: Performed By: #### C OMID ####[facility] Hnwroabkiy6416 [place] [phone]. Bhavani Barragan RBC 4.32 106/ul Normal 4.20-5.40 [facility] Comment on above: Performed By: #### C OMID ####[facility] Vsgnpujyyy4130 [place], [place] [address]Yx. Bhavani Barragan RDW 16.4 % Critically high 11.0-15.0 [facility] Comment on above: Performed By: #### C BCMAN ####[facility] Kttnfwzcqg2948 [place] [phone]. Bhavani Barragan SEG # 27.18 103/ul Critically high 1.40-6.50 [facility] Comment on above: Performed By: #### C BCMAN ####[facility] Pdvbixjksz6552 [place] [phone]. Bhavani Barragan SEG % 90.0 % Critically high 43.0-75.0 [facility] Comment on above: Performed By: #### C BCMAN ####[facility] Ixtawrmdfv9660 [place] [address]Dr. Bhavani Barragan WBC 30.2 103/ul Critically high 4.0-11.0 [facility] Comment on above: Performed By: #### C BCMAN ####[facility] Dwnwmdzqpm04[address] [place] [address]Dr. Bhavani Barragan CTA CHEST WO W CONon 022 CTA CHEST WO W CON Normal [facility] POINT OF CARE GLUCOSEon 03-18 0-2021 Glucose [Mass/Vol] 94 mg/dL Normal 74-106 [facility] Comment on above: Performed By: #### P OCGLUC ####[facility] Svzhbjoags5176 [place] [address]Dr. Bhavani Barragan Glucose [Mass/Vol] 131 mg/dL Critically high 74-106 [facility] Comment on above: Performed By: #### P OCGLUC ####[facility] Tlystbabxs5435 [place] [address]Dr. Bhavani Barragan Glucose [Mass/Vol] 134 mg/dL Critically high 74-106 [facility] Comment on above: Performed By: #### P OCGLUC ####[facility] Eetijzwhqa0607 [place] [address]Dr. Bhavani Barragan PROF 14(COMP METB)on 022 Albumin [Mass/Vol] 2.4 g/dL Critically low 3.4-5.0 [facility] Comment on above: Performed By: #### C MP ####[facility] Kjrloskxdc0947 [place] [phone]. Bhavani Barragan Albumin/Globulin [Mass ratio] 0.6 {ratio} Normal [facility] Comment on above: Performed By: #### C MP ####[facility] Ubfkjzdgqy4373 [place] [phone]. Bhavani Barragan ALP [Catalytic activity/Vol] 306 U/L Critically high 46-116 [facility] Comment on above: Performed By: #### C MP ####[facility] Hcuathhxzh7364 [place] [address]Dr. Bhavani Barragan ALT [Catalytic activity/Vol] 152 U/L Critically high 14-59 [facility] Comment on above: Performed By: #### C MP ####[facility] Qlducvkkyb84[address] [place], [place] [address]Dr. Bhavani Barragan Anion gap [Moles/Vol] 8.1 mmol/L Normal [facility] Comment on above: Performed By: #### C MP ####[facility] Spwylkljne517[address] [place], [place] [address]Dr. Bhavani Laurel AST [Catalytic activity/Vol] 98 U/L Critically high 15-37 [facility] Comment on above: Performed By: #### C MP ####[facility] Keilwbehee[address] [place] [address]Dr. Bhavani Laurel Bilirubin [Mass/Vol] 2.7 mg/dL Critically high 0.2-1.0 [facility] Comment on above: Performed By: #### C MP ####[facility] Ugllbzseuc6682 [place] [address]Dr. Bhavani Laurel Calcium [Mass/Vol] 7.4 mg/dL Critically low 8.5-10.1 [facility] Comment on above: Performed By: #### C MP ####[facility] Dtnbbfinnm337[address] [place], [place] [address]Dr. Bhavani Barragan Chloride [Moles/Vol] 103 mmol/L Normal 98-107 [facility] Comment on above: Performed By: #### C MP ####[facility] Qsfxsmoxmt2749 [place] [address]Dr. Bhavani Barragan CO2 [Moles/Vol] 24.7 mmol/L Normal 21.0-32.0 [facility] Comment on above: Performed By: #### C MP ####[facility] Gtxabnqrxh2673 [place] [address]Dr. Bhavani Barragan Creatinine [Mass/Vol] 1.07 mg/dL Critically high 0.55-1.02 [facility] Comment on above: Performed By: #### C MP ####[facility] Qwethewdbs6634[address] [place], [place] [address]Dr. Bhavani Barragan EGFR-AF SINGAPOREAN 60 mL/min/1.73m2 Normal >=60 [facility] Comment on above: Performed By: #### C MP ####[facility] Ogojfquyiy[address] [place], [place] [address]Dr. Bhavani Barragan EGFR-NON AF [place]OREAN 49 mL/min/1.73m2 Critically low >=60 [facility] Comment on above: Performed By: #### C MP ####[facility] Rjgzytkbbw345[address] [place], [place] [address]Dr. Bhavani Barragan Globulin (S) [Mass/Vol] 3.8 g/dL Normal [facility] Comment on above: Performed By: #### C MP ####[facility] Wzyumzpwwn9144 [place] [address]Dr. Bhavani Barragan Glucose [Mass/Vol] 140 mg/dL Critically high 74-106 [facility] Comment on above: Performed By: #### C MP ####[facility] Jrvxowpklv3375 [place] [address]Dr. Bhavani Barragan Potassium [Moles/Vol] 3.8 mmol/L Normal 3.5-5.1 [facility] Comment on above: Performed By: #### C MP ####[facility] Fyqohbbxzu215[address] [place], [place] [address]Dr. Bhavani Barragan Protein [Mass/Vol] 6.2 g/dL Critically low 6.4-8.2 [facility] Comment on above: Performed By: #### C MP ####[facility] Omoclftrqo0948 [place] [phone]. Bhavani Barragan Sodium [Moles/Vol] 132 mmol/L Critically low 136-145 [facility] Comment on above: Performed By: #### C MP ####[facility] Edqilrqisv9765 [place] [phone]. Bhavani Barragan Urea nitrogen [Mass/Vol] 15.0 mg/dL Normal 7.0-18.0 [facility] Comment on above: Performed By: #### C MP ####[facility] Zzjsqzszud0760 [place] [address]Dr. Bhavani Barragan Urea nitrogen/Creatinine [Mass ratio] 14.0 mg/mg Normal [facility] Comment on above: Performed By: #### C MP ####[facility] Wytkxstboc1398 [place] [address]Dr. Bhavani Barragan PROTIMEon 03-27-2022 INR Coag (PPP) [Relative time] 1.37 {INR} Normal [facility] Comment on above: Performed By: #### P T, PTT ####[facility] Uofckwjayq[address] [place] [address]Dr. Bhavani Barragan INR GUIDELINES SEE BELOW Normal [facility] Comment on above: Result Comment: WALKER RED INR: 2.0 - 3.0 CONDITIONS NOT LISTED BELOW 2.5 - 3.5 FOR PROSTHETIC HEART VALVE REPLACEMENT 2.5 - 3.5 RECURRENT THROMBOSIS Performed By: #### P T, PTT ####[facility] Pbkisifarb[address] [place], [place] [address]Dr. Bhavani Barragan PT Coag (PPP) [Time] 14.5 s Critically high 9.0-11.6 [facility] Comment on above: Performed By: #### P T, PTT ####[facility] Rwxnksqybq[address] [place], [place] [address]Dr. Bhavani Barragan PTTon 03-27-2022 aPTT Coag (Bld) [Time] 34.2 s Normal 22.3-36.2 [facility] Comment on above: Performed By: #### P T, PTT ####[facility] Bfplauikdz[address] [place] [address]Dr. Bhavani Laurel XR ABD FLAT_UPon 03-27-2022 XR ABD FLAT_UP Normal [facility] XR CHEST 1 Von 03-27-2022 XR CHEST 1 V Normal [facility] AMMONIAon 03-26-2022 Ammonia (P) [Moles/Vol] 26 umol/L Normal 11-32 [facility] Comment on above: Performed By: #### A MM ####[facility] Agtwaxflle5[address] [place] [address]Dr. Bhavani Barragan CBC AUTO DIFFon 03-26-2022 BASO # 0.2 103/ul Critically high 0.0-0.1 [facility] Comment on above: Performed By: #### C BC ####[facility] Jkzhtovaqk9946 [place] [address]Dr. Bhavani Barragan Basophils/100 WBC (Bld) 0.8 % Normal 0.2-2.0 [facility] Comment on above: Performed By: #### C BC ####[facility] Bljsnybnfx[address] [place], [place] [address]Dr. Bhavani Barragan EO # 0.0 103/ul Normal 0.0-0.7 [facility] Comment on above: Performed By: #### C BC ####[facility] Hhpgbhdoij4986 [place] [address]Dr. Bhavani Barragan Eosinophils/100 WBC (Bld) 0.1 % Critically low 0.9-7.0 [facility] Comment on above: Performed By: #### C BC ####[facility] Hosbymrleu3[address] [place] [address]Dr. Bhavani Barragan Erythrocyte distribution width (RBC) [Ratio] 16.0 % Critically high 11.0-15.0 [facility] Comment on above: Performed By: #### C BC ####[facility] Mwcqchuxjx3046 [place] [address]Dr. Bhavani Barragan Hematocrit (Bld) [Volume fraction] 43.9 % Normal 36.0-48.0 [facility] Comment on above: Performed By: #### C BC ####[facility] Fcwxdigkcq2515 [place] [phone]. Bhavani Barragan Hemoglobin (Bld) [Mass/Vol] 13.6 g/dL Normal 12.0-16.0 [facility] Comment on above: Performed By: #### C BC ####[facility] Chvxbgtipe0871 [place] [phone]. Bhavani Barragan IG # 0.78 10e3/ul Critically high 0.00-0.03 [facility] Comment on above: Performed By: #### C BC ####[facility] Fkjdvqpoge4586 [place] [address]Dr. Bhavani Barragan IG % 3.5 % Critically high 0.0-0.5 [facility] Comment on above: Performed By: #### C BC ####[facility] Ahkfnoxcjc18[address] [place] [address]Dr. Bhavani Barragan LYMPH # 0.9 103/ul Critically low 1.2-3.8 [facility] Comment on above: Performed By: #### C BC ####[facility] Bjapgdfnvz2718 [place] [address]Dr. Bhavani Barragan Lymphocytes/100 WBC (Bld) 3.9 % Critically low 20.5-60.0 [facility] Comment on above: Performed By: #### C BC ####[facility] Jqbxhrotua1119 [place] [address]Dr. Bhavani Barragan MANUAL DIFF REQ NO Normal [facility] Comment on above: Performed By: #### C BC ####[facility] Pagamxymlh6[address] [place], [place] [address]Dr. Bhavani Barragan MCH (RBC) [Entitic mass] 30.0 pg Normal 26.7-34.0 [facility] Comment on above: Performed By: #### C BC ####[facility] Fybagjqitr[address] [place], [place] [address]Dr. Bhavani Barragan MCHC (RBC) [Mass/Vol] 31.0 g/dL Normal 29.9-35.2 [facility] Comment on above: Performed By: #### C BC ####[facility] Yjqxrmcqzz0978 [place] [phone]. Bhavani Barragan MCV (RBC) [Entitic vol] 96.9 fL Normal 81.0-99.0 [facility] Comment on above: Performed By: #### C BC ####[facility] Uijmjpndxd7436 [place] [phone]. Bhavani Barragan MONO # 0.6 103/ul Normal 0.3-0.8 [facility] Comment on above: Performed By: #### C BC ####[facility] [address]buajlt[address] [place], [place] [address]Dr. Bhavani Barragan Monocytes/100 WBC (Bld) 2.7 % Normal 1.7-12.0 [facility] Comment on above: Performed By: #### C BC ####[facility] Qfzcidkzgl[address] [place], [place] [address]Dr. Bhavani Barragan NEUT # 20.1 103/ul Critically high 1.4-6.5 The [facility] Comment on above: Performed By: #### C BC ####[facility] Ypxuchjiyr[address] [place], [place] [id number]. Bhavani Barragan Neutrophils/100 WBC (Bld) 89.0 % Critically high 43.0-75.0 [facility] Comment on above: Performed By: #### C BC ####[facility] Ixvgrexvev5[address] [place], [place] [address]Dr. Bhavani Barragan Platelet mean volume (Bld) [Entitic vol] 9.7 fL Normal 9.5-13.5 [facility] Comment on above: Performed By: #### C BC ####[facility] [address] [place] [phone]. Bhavani Barragan PLT 434 103/ul Normal 150-450 [facility] Comment on above: Performed By: #### C BC ####[facility] Jltkeiezad3098 [place] [phone]. Jayceeroxi Laurel RBC 4.53 106/ul Normal 4.20-5.40 [facility] Comment on above: Performed By: #### C BC ####[facility] Srgobaguyb[address] [place] [address]Dr. Bhavani Barragan WBC 22.6 103/ul Critically high 4.0-11.0 [facility] Comment on above: Performed By: #### C BC ####[facility] Vjwbtzfqwt[address] [place] [address]Dr. Bhavani Barragan ECHOCARDIO M/2D COMPLETEon 0 03-26-2022 ECHOCARDIO M/2D COMPLETE Normal [facility] POINT OF CARE GLUCOSEon Glucose [Mass/Vol] 166 mg/dL Critically high 74-106 [facility] Comment on above: Performed By: #### P OCGLUC ####[facility] Kxgpthkldj9[address] [place], [place] [address]Dr. Bhavani Barragan Glucose [Mass/Vol] 148 mg/dL Critically high 74-106 [facility] Comment on above: Performed By: #### P OCGLUC ####[facility] Xqhhmkknzb[address] [place], [place] [address]Dr. Bhavani Barragan PROF 14(COMP METB)on 022 Albumin [Mass/Vol] 2.4 g/dL Critically low 3.4-5.0 [facility] Comment on above: Performed By: #### C MP ####[facility] Fwfvafipms[address] [place], [place] [address]Dr. Bhavani Barragan Albumin/Globulin [Mass ratio] 0.6 {ratio} Normal [facility] Comment on above: Performed By: #### C MP ####[facility] [address]afsem[address] [place] [address]Dr. Bhavani Barragan ALP [Catalytic activity/Vol] 310 U/L Critically high 46-116 [facility] Comment on above: Performed By: #### C MP ####[facility] Cjbqtjtunj62[address] [place], [place] [address]Dr. Bhavani Barragan ALT [Catalytic activity/Vol] 194 U/L Critically high 14-59 [facility] Comment on above: Performed By: #### C MP ####[facility] Ywgmnpcosr918[address] [place], [place] [address]Dr. Bhavani Barragan Anion gap [Moles/Vol] 8.2 mmol/L Normal [facility] Comment on above: Performed By: #### C MP ####[facility] Lwiqkzyjjy36[address] [place], [place] [address]Dr. Bhavani Laurel AST [Catalytic activity/Vol] 133 U/L Critically high 15-37 [facility] Comment on above: Performed By: #### C MP ####[facility] Uizmelfazh428[address] [place], [place] [address]Dr. Bhavani Barragan Bilirubin [Mass/Vol] 2.8 mg/dL Critically high 0.2-1.0 [facility] Comment on above: Performed By: #### C MP ####[facility] Xcqdjkvufb33[address] [place], [place] [address]Dr. Bhavani Barragan Calcium [Mass/Vol] 7.7 mg/dL Critically low 8.5-10.1 [facility] Comment on above: Performed By: #### C MP ####[facility] Ttqewbixff0132[address] [place], [place] [address]Dr. Bhavani Barragan Chloride [Moles/Vol] 105 mmol/L Normal 98-107 [facility] Comment on above: Performed By: #### C MP ####[facility] Nrykylvhjd425[address] [place], [place] [address]Dr. Bhavani Barragan CO2 [Moles/Vol] 25.8 mmol/L Normal 21.0-32.0 [facility] Comment on above: Performed By: #### C MP ####[facility] Whidvuaqaw[address] [place], [place] [address]Dr. Bhavani Barragan Creatinine [Mass/Vol] 1.07 mg/dL Critically high 0.55-1.02 [facility] Comment on above: Performed By: #### C MP ####[facility] Zrbhnrjcfv[address] [place], [place] [address]Dr. Bhavani Barragan EGFR-AF SINGAPOREAN 60 mL/min/1.73m2 Normal >=60 [facility] Comment on above: Performed By: #### C MP ####[facility] Kbggmybjtc117[address] [place], [place] [address]Dr. Bhavani Barragan EGFR-NON AF [place]INGAPOREAN 49 mL/min/1.73m2 Critically low >=60 [facility] Comment on above: Performed By: #### C MP ####[facility] Ploeczymal[address] [place] [address]Dr. Jayceeroxi Laurel Globulin (S) [Mass/Vol] 3.8 g/dL Normal [facility] Comment on above: Performed By: #### C MP ####[facility] Uxdmscoopp27[address] [place] [address]Dr. Bhavani Barragan Glucose [Mass/Vol] 90 mg/dL Normal 74-106 [facility] Comment on above: Performed By: #### C MP ####[facility] Zxtvudtchr769[address] [place], [place] [address]Dr. Bhavani Barragan Potassium [Moles/Vol] 4.0 mmol/L Normal 3.5-5.1 [facility] Comment on above: Performed By: #### C MP ####[facility] Xtlnbrofmj257[address] [place], [place] [address]Dr. Bhavani Barragan Protein [Mass/Vol] 6.2 g/dL Critically low 6.4-8.2 [facility] Comment on above: Performed By: #### C MP ####[facility] Pqrmvwgvpc55[address] [place], [place] [address]Dr. Bhavani Barragan Sodium [Moles/Vol] 135 mmol/L Critically low 136-145 [facility] Comment on above: Performed By: #### C MP ####[facility] Uisuchzxis569[address] [place], [place] [address]Dr. Bhavani Barragan Urea nitrogen [Mass/Vol] 14.0 mg/dL Normal 7.0-18.0 [facility] Comment on above: Performed By: #### C MP ####[facility] Njywxehhbe179[address] [place], [place] [address]Dr. Bhavani Barragan Urea nitrogen/Creatinine [Mass ratio] 13.1 mg/mg Normal [facility] Comment on above: Performed By: #### C MP ####[facility] Ooueifnnis9[address] [place], [place] [address]Dr. Bhavani Barragan PROTIMEon 03-26-2022 INR Coag (PPP) [Relative time] 1.31 {INR} Normal [facility] Comment on above: Performed By: #### P T, PTT ####[facility] Fsdpoeusxy68[address] [place], [place] [address]DrLydia Braragan INR GUIDELINES SEE BELOW Normal [facility] Comment on above: Result Comment: WALKER RED INR: 2.0 - 3.0 CONDITIONS NOT LISTED BELOW 2.5 - 3.5 FOR PROSTHETIC HEART VALVE REPLACEMENT 2.5 - 3.5 RECURRENT THROMBOSIS Performed By: #### P T, PTT ####[facility] Aajedlutgn773[address] [place], [place] [address]Dr. Bhavani Barragan PT Coag (PPP) [Time] 13.9 s Critically high 9.0-11.6 [facility] Comment on above: Performed By: #### P T, PTT ####[facility] Ltxbiunook[address] [place], [place] [address]DrLydia Barragan PTTon 03-26-2022 aPTT Coag (Bld) [Time] 32.8 s Normal 22.3-36.2 [facility] Comment on above: Performed By: #### P T, PTT ####[facility] Qxiydfhycr[address] [place], [place] [address]DrLydia Barragan AMMONIAon 03-25-2022 Ammonia (P) [Moles/Vol] 17 umol/L Normal 11-32 [facility] Comment on above: Performed By: #### A MM ####[facility] Ctneeiwban[address] [place], [place] [address]DrLydia Barragan CBC W MANUAL DIFFon 03-25-20 22 ATYPICAL LYMPH # Normal [facility] Comment on above: Performed By: #### C BCMAN ####[facility] Ubctrfbqbl356[address] [place], [place] [address]DrLydia Barragan ATYPICAL LYMPH % Normal [facility] Comment on above: Performed By: #### C BCMAN ####[facility] Oorneukbej[address] [place], [place] [address]DrLydia Barragan BAND # 0.3 103/ul Normal 0.0-0.3 [facility] Comment on above: Performed By: #### C BCJERSON ####[facility] Vog[address]ayttt[address] [place] [phone]. Bhavani Barragan BAND % 1 % Normal 0-5 [facility] Comment on above: Performed By: #### C BCJERSON ####[facility] Mtxvvrinbv9901 [place] [phone]. Bhavani Barragan BASOM # 0.27 103/ul Critically high 0.00-0.10 [facility] Comment on above: Performed By: #### C BCJERSON ####[facility] Ytkyeotsan[address] [place] [address]Dr. Bhavani Barragan BASOM % 1.0 % Normal 0.2-2.0 [facility] Comment on above: Performed By: #### C OMID ####[facility] Yvsvdukhgs36[address] [place] [address]Dr. Bhavani Barragan BLAST # Normal [facility] Comment on above: Performed By: #### C BCJERSON ####[facility] A[address]nyzmcp[address] [place], [place] [address]Dr. Bhavani Barragan BLAST % Normal [facility] Comment on above: Performed By: #### C BCJERSON ####[facility] Iqdvwxhbwe[address] [place] [address]Dr. Bhavani Barragan CORRECTED WBC Normal 4.0-11.0 [facility] Comment on above: Performed By: #### C BCJERSON ####[facility] Ifyqqfzeus15[address] [place] [address]Dr. Bhavani Barragan EOS # 0.00 103/ul Normal 0.00-0.70 [facility] Comment on above: Performed By: #### C BCJERSON ####[facility] Zehmdyufpy34[address] [place], [place] [address]Dr. Bhavani Barragan EOS% 0.0 % Critically low 0.9-7.0 [facility] Comment on above: Performed By: #### C BCJERSON ####[facility] Dhhkkmiaeu85[address] [place], [place] [address]Dr. Bhavani Barragan HCT 41.6 % Normal 36.0-48.0 [facility] Comment on above: Performed By: #### C BCJERSON ####[facility] Lhjdnhplcx4336 [place] [phone]. Bhavani Barragan HGB 12.8 g/dl Normal 12.0-16.0 [facility] Comment on above: Performed By: #### C BCJERSON ####[facility] Fgoahmtkka6[address] [place] [phone]. Bhavani Barragan LYMPHM # 0.80 103/ul Critically low 1.20-3.80 [facility] Comment on above: Performed By: #### C OMID ####[facility] Hpmvwivues6243 [place] [phone]. Bhavani Barragan LYMPHM% 3.0 % Critically low 20.5-60.0 [facility] Comment on above: Performed By: #### C OMID ####[facility] Idlqrinkre3497 [place] [phone]. Bhavani Barragan MCH 29.4 pg Normal 26.7-34.0 [facility] Comment on above: Performed By: #### C OMID ####[facility] Kyvbrnwiqr4264 [place] [phone]. Bhavani Barragan MCHC 30.8 g/dl Normal 29.9-35.2 [facility] Comment on above: Performed By: #### C OMID ####[facility] S[address]kbkrqwwx[address] [place] [phone]. Bhavani Barragan MCV 95.6 fL Normal 81.0-99.0 [facility] Comment on above: Performed By: #### C BCJERSON ####[facility] Rmliqytsvy[address] [place], [place] [address]Pp. Bhavani Barragan METAMYELOCYTE # Normal [facility] Comment on above: Performed By: #### C BCJERSON ####[facility] Lqykitxuuc9758 [place], [place] [address]Wr. Bhavani Barragan METAMYELOCYTE % Normal [facility] Comment on above: Performed By: #### C BCJERSON ####[facility] Sllqygymqg1414 [place], [place] [address]Qb. Bhavani Barragan MONOM# 0.80 103/ul Normal 0.30-0.80 [facility] Comment on above: Performed By: #### C OMID ####[facility] Wzstwzoukf8318 [place] [phone]. Bhavani Barragan MONOM% 3.0 % Normal 1.7-12.0 [facility] Comment on above: Performed By: #### C OMID ####[facility] Exdyqhsuej7538 [place] [phone]. Bhavani Barragan MPV 9.9 fL Normal 9.5-13.5 [facility] Comment on above: Performed By: #### C OMID ####[facility] Mzsvhstsgz1184 [place] [phone]. Bhavani Barragan MYELOCYTE # Normal [facility] Comment on above: Performed By: #### C OMID ####[facility] Uozdvnbjto1602 [place] [phone]. Bhavani Barragan MYELOCYTE % Normal [facility] Comment on above: Performed By: #### C OMID ####[facility] Isrrrvaebf9345 [place] [phone]. Bhavani Barragan NRBC Normal [facility] Comment on above: Performed By: #### C OMID ####[facility] Ykmywmehbg2700 [place] [phone]. Bhavani Barragan PLT 448 103/ul Normal 150-450 [facility] Comment on above: Performed By: #### C OMID ####[facility] Is[address]irmqcce0562 [place], [place] [address]Iv. Bhavani Barragan RBC 4.35 106/ul Normal 4.20-5.40 [facility] Comment on above: Performed By: #### C OMID ####[facility] Lkcrmndbmm4541 [place] [phone]. Bhavani Barragan RDW 16.0 % Critically high 11.0-15.0 [facility] Comment on above: Performed By: #### C OMID ####[facility] Pfinfllnoc9002 [place], [place] [address]Wq. Bhavani Barragan SEG # 24.38 103/ul Critically high 1.40-6.50 The [facility] Comment on above: Performed By: #### C BCMAN ####[facility] Zfjqudoezf0900 [place] [phone]. Bhavani Barragan SEG % 92.0 % Critically high 43.0-75.0 [facility] Comment on above: Performed By: #### C BCMAN ####[facility] Qhnerxypzn5767 [place] [phone]. Bhavani Barragan WBC 26.5 103/ul Critically high 4.0-11.0 [facility] Comment on above: Performed By: #### C BCMAN ####[facility] Tyvcctcdvv2967 [place] [phone]. Bhavani Barragan DIFFERENTIAL MANUALon 2021 ATYPICAL LYMPH # Normal [facility] Comment on above: Performed By: #### D IFF ####[facility] Wufnqapweg5701 [place] [phone]. Bhavani Barragan ATYPICAL LYMPH % Normal [facility] Comment on above: Performed By: #### D IFF ####[facility] Yvfzpaiovg1445 [place] [phone]. Bhavani Barragan BAND # 0.3 103/ul Normal 0.0-0.3 [facility] Comment on above: Performed By: #### D IFF ####[facility] Vgzmhtpgde0810 [place] [address]Dr. Bhavani Barragan BAND % 1 % Normal 0-5 [facility] Comment on above: Performed By: #### D IFF ####[facility] Gbwzwhmglx8603 [place] [phone]. Bhavani Barragan BASOM # 0.27 103/ul Critically high 0.00-0.10 [facility] Comment on above: Performed By: #### D IFF ####[facility] Zwmpbschqr3151 [place] [phone]. Bhavani Barragan BASOM % 1.0 % Normal 0.2-2.0 [facility] Comment on above: Performed By: #### D IFF ####[facility] Iyuavgmfux[address] [place] [address]Dr. Bhavani Barragan BLAST # Normal [facility] Comment on above: Performed By: #### D IFF ####[facility] Tytcehckae0771 [place] [phone]. Bhavani Barragan BLAST % Normal [facility] Comment on above: Performed By: #### D IFF ####[facility] Bqwiavwsmm[address] [place], [place] [address]Dr. Bhavani Barragan CORRECTED WBC Normal 4.0-11.0 [facility] Comment on above: Performed By: #### D IFF ####[facility] Dpbkkxxmfy6915[address] [place], [place] [address]Dr. Bhavani Barragan EOS # 0.00 103/ul Normal 0.00-0.70 [facility] Comment on above: Performed By: #### D IFF ####[facility] Mhguxlrasg02[address] [place], [place] [address]Dr. Bhavani Barragan EOS% 0.0 % Critically low 0.9-7.0 [facility] Comment on above: Performed By: #### D IFF ####[facility] Nlncvoaqas9[address] [place], [place] [address]Dr. Bhavani Barragan LYMPHM # 0.80 103/ul Critically low 1.20-3.80 [facility] Comment on above: Performed By: #### D IFF ####[facility] Snvdtycquf2967[address] [place], [place] [address]Dr. Bhavani Barragan LYMPHM% 3.0 % Critically low 20.5-60.0 [facility] Comment on above: Performed By: #### D IFF ####[facility] Xwuaxerekt210[address] [place], [place] [address]Dr. Bhavani Barragan METAMYELOCYTE # Normal [facility] Comment on above: Performed By: #### D IFF ####[facility] Xtejjdnkbu080[address] [place], [place] [address]Dr. Yilan Barragan METAMYELOCYTE % Normal [facility] Comment on above: Performed By: #### D IFF ####[facility] Otyreumoqh8690 [place] [phone]. Bhavani Barragan MONOM# 0.80 103/ul Normal 0.30-0.80 [facility] Comment on above: Performed By: #### D IFF ####[facility] Llhszkcxvt3782 [place] [phone]. Bhavani Barragan MONOM% 3.0 % Normal 1.7-12.0 [facility] Comment on above: Performed By: #### D IFF ####[facility] Unqnzkfnho0017 [place] [phone]. Bhavani Barragan MYELOCYTE # Normal [facility] Comment on above: Performed By: #### D IFF ####[facility] Qqjdysyxas2711 [place] [phone]. Bhavani Barragan MYELOCYTE % Normal [facility] Comment on above: Performed By: #### D IFF ####[facility] Ydhecftrza[address] [place], [place] [address]Dr. Bhavani Barragan NRBC Normal [facility] Comment on above: Performed By: #### D IFF ####[facility] Xnlmzxyehx4889 [place] [phone]. Bhavani Barragan SEG # 24.38 103/ul Critically high 1.40-6.50 [facility] Comment on above: Performed By: #### D IFF ####[facility] Mkzzjjnfai9715 [place] [phone]. Bhavani Barragan SEG % 92.0 % Critically high 43.0-75.0 [facility] Comment on above: Performed By: #### D IFF ####[facility] Fezpbaaaps3707 [place] [phone]. Bhavani Barragan WBC 26.5 103/ul Critically high 4.0-11.0 [facility] Comment on above: Performed By: #### D IFF ####[facility] Awdlvhuobz34[address] [place], [place] [address]Dr. Bhavani Barragan POINT OF CARE GLUCOSEon Glucose [Mass/Vol] 120 mg/dL Critically high 74-106 [facility] Comment on above: Performed By: #### P OCGLUC ####[facility] Nxfmgmiqyq5384 [place] [address]Dr. Bhavani Barragan Glucose [Mass/Vol] 98 mg/dL Normal 74-106 [facility] Comment on above: Performed By: #### P OCGLUC ####[facility] Eyxkcnuyuj2175 [place] [address]Dr. Bhavani Barragan PROF 14(COMP METB)on 022 Albumin [Mass/Vol] 2.3 g/dL Critically low 3.4-5.0 [facility] Comment on above: Performed By: #### C MP ####[facility] Pzfkcltbzx8[address] [place], [place] [address]Dr. Bhavani Barragan Albumin/Globulin [Mass ratio] 0.6 {ratio} Normal [facility] Comment on above: Performed By: #### C MP ####[facility] Tmweyefolx22[address] [place], [place] [address]Dr. Bhavani Barragan ALP [Catalytic activity/Vol] 309 U/L Critically high 46-116 [facility] Comment on above: Performed By: #### C MP ####[facility] Gizebyyvre715[address] [place], [place] [address]Dr. Bhavani Barragan ALT [Catalytic activity/Vol] 163 U/L Critically high 14-59 [facility] Comment on above: Performed By: #### C MP ####[facility] Ajoqdbzcop318[address] [place], [place] [address]Dr. Bhavani Barragan Anion gap [Moles/Vol] 12.2 mmol/L Normal [facility] Comment on above: Performed By: #### C MP ####[facility] Yxngjmrpxa9436[address] [place], [place] [address]Dr. Bhavani Barragan AST [Catalytic activity/Vol] 103 U/L Critically high 15-37 [facility] Comment on above: Performed By: #### C MP ####[facility] Bewgrkychn5992 [place] [address]Dr. Bhavani Barragan Bilirubin [Mass/Vol] 1.5 mg/dL Critically high 0.2-1.0 [facility] Comment on above: Performed By: #### C MP ####[facility] Mjtpqeiraz8[address] [place], [place] [address]Dr. Bhavani Barragan Calcium [Mass/Vol] 7.3 mg/dL Critically low 8.5-10.1 [facility] Comment on above: Performed By: #### C MP ####[facility] Ozjhpejdpa77[address] [place], [place] [address]Dr. Bhavani Barragan Chloride [Moles/Vol] 107 mmol/L Normal 98-107 [facility] Comment on above: Performed By: #### C MP ####[facility] Pobltndxev496[address] [place], [place] [address]Dr. Bhavani Barragan CO2 [Moles/Vol] 21.9 mmol/L Normal 21.0-32.0 [facility] Comment on above: Performed By: #### C MP ####[facility] Tvnkgslzjy56[address] [place], [place] [address]Dr. Bhavani Barragan Creatinine [Mass/Vol] 1.22 mg/dL Critically high 0.55-1.02 [facility] Comment on above: Performed By: #### C MP ####[facility] Mgazjzugsq58[address] [place], [place] [address]Dr. Bhavani Laurel EGFR-AF [place]AN 51 mL/min/1.73m2 Critically low >=60 [facility] Comment on above: Performed By: #### C MP ####[facility] Vszunfbkxd46[address] [place], [place] [address]Dr. Bhavani Laurel EGFR-NON AF [place]AN 42 mL/min/1.73m2 Critically low >=60 [facility] Comment on above: Performed By: #### C MP ####[facility] Xtplfbbjzo095[address] [place], [place] [address]Dr. Bhavani Laurel Globulin (S) [Mass/Vol] 3.7 g/dL Normal [facility] Comment on above: Performed By: #### C MP ####[facility] Mkqrqexllj8835 [place] [phone]. Bhavani Barragan Glucose [Mass/Vol] 165 mg/dL Critically high 74-106 [facility] Comment on above: Performed By: #### C MP ####[facility] Wtxtxifoli5089 [place] [address]Dr. Bhavani Barragan Potassium [Moles/Vol] 4.1 mmol/L Normal 3.5-5.1 [facility] Comment on above: Performed By: #### C MP ####[facility] Ycoegdbcts4313 [place] [address]Dr. Bhavani Barragan Protein [Mass/Vol] 6.0 g/dL Critically low 6.4-8.2 [facility] Comment on above: Performed By: #### C MP ####[facility] Zlughphdbm95[address] [place], [place] [address]Dr. Bhavani Barragan Sodium [Moles/Vol] 137 mmol/L Normal 136-145 [facility] Comment on above: Performed By: #### C MP ####[facility] Uqhxphvlgs200[address] [place], [place] [address]Dr. Bhavani Laurel Urea nitrogen [Mass/Vol] 18.0 mg/dL Normal 7.0-18.0 [facility] Comment on above: Performed By: #### C MP ####[facility] [address]qfjrv4[address] [place] [address]Dr. Jayceeroxi Barragan Urea nitrogen/Creatinine [Mass ratio] 14.8 mg/mg Normal [facility] Comment on above: Performed By: #### C MP ####[facility] Mahvdxskyr23[address] [place] [address]Dr. Jayceeroxi Barragan PROTIMEon 03-25-2022 INR Coag (PPP) [Relative time] 1.18 {INR} Normal [facility] Comment on above: Performed By: #### P TT, PT ####[facility] [address]axvcdfza7[address] [place] [address]Dr. Jayceeroxi Laurel INR GUIDELINES SEE BELOW Normal [facility] Comment on above: Result Comment: WALKER RED INR: 2.0 - 3.0 CONDITIONS NOT LISTED BELOW 2.5 - 3.5 FOR PROSTHETIC HEART VALVE REPLACEMENT 2.5 - 3.5 RECURRENT THROMBOSIS Performed By: #### P TT, PT ####[facility] Iypoidkgdx[address] [place], [place] [address]Dr. Bhavani Barragan PT Coag (PPP) [Time] 12.6 s Critically high 9.0-11.6 [facility] Comment on above: Performed By: #### P TT, PT ####[facility] Zxsommowrx[address] [place], [place] [address]Dr. Bhavani Barragan PTTon 03-25-2022 aPTT Coag (Bld) [Time] 30.6 s Normal 22.3-36.2 [facility] Comment on above: Performed By: #### P TT, PT ####[facility] Ghdxqwxclt[address] [place], [place] [address]Dr. Bhavani Barragan AMMONIAon 03-24-2022 Ammonia (P) [Moles/Vol] 38 umol/L Critically high 11-32 [facility] Comment on above: Performed By: #### A MM ####[facility] Amwrlatalt[address] [place], [place] [address]Dr. Bhavani Barragan BNPon 03-24-2022 Natriuretic peptide B (Bld) [Mass/Vol] 2420.0 pg/mL Critically high <=1,800.0 [facility] Comment on above: Result Comment: repe ated Performed By: #### B [employer], CMP ####[facility] Lksqldcowd[address] [place], [place] [address]Dr. Bhavani Barragan CARDIAC ANDREA 3-6on 2 CK [Catalytic activity/Vol] 20 U/L Critically low 26-192 [facility] Comment on above: Performed By: #### C MREP ####[facility] Ljcpwmfczp[address] [place], [place] [address]Dr. Bhavani Barragan CK.MB [Mass/Vol] ng/mL Normal <=3.60 The [facility] Comment on above: Performed By: #### C MREP ####[facility] Khheuishxv[address] [place], [place] [address]Dr. Bhavani Barragan HSTROP 42.4 pg/mL Normal 4.0-51.3 [facility] Comment on above: Result Comment: CUT- OFF POINTS HAVE BEEN ESTABLISHED BASED ON THE FOURTH UNIVERSAL DEFINITIONS OF MYOCARDIALINFARCTION. THE UPPER REFERENCE LIMIT (URL) OF TROPONIN, DEFINED THE 99TH PERCENTILE OFcTnI DISTRIBUTION IN A REFERENCE POPULATION, HAS BEEN CONFIRMED THE DECISION THRESHOLDFOR [place] DIAGNOSIS. Performed By: #### C MREP ####[facility] [address]xpix[address] [place] [address]Dr. Bhavani Barragan CK [Catalytic activity/Vol] 17 U/L Critically low 26-192 [facility] Comment on above: Performed By: #### C MREP ####[facility] [address]sewyvazdx[address] [place] [address]Dr. Bhavani Laurel CK.MB [Mass/Vol] 0.51 ng/mL Normal <=3.60 [facility] Comment on above: Performed By: #### C MREP ####[facility] Nxaoyqfsmm74[address] [place], [place] [address]Dr. Bhavani Barragan HSTROP 45.4 pg/mL Normal 4.0-51.3 [facility] Comment on above: Result Comment: CUT- OFF POINTS HAVE BEEN ESTABLISHED BASED ON THE FOURTH UNIVERSAL DEFINITIONS OF MYOCARDIALINFARCTION. THE UPPER REFERENCE LIMIT (URL) OF TROPONIN, DEFINED THE 99TH PERCENTILE OFcTnI DISTRIBUTION IN A REFERENCE POPULATION, HAS BEEN CONFIRMED THE DECISION THRESHOLDFOR [place] DIAGNOSIS. Performed By: #### C MREP ####[facility] [address] [place] [address]Dr. Bhavani Laurel CBC W MANUAL DIFFon 03-24-20 22 ANISOCYTOSIS 1+ Normal [facility] Comment on above: Performed By: #### C BCMAN ####[facility] [address]ozbx[address] [place] [address]Dr. Bhavani Barragan ATYPICAL LYMPH # Normal [facility] Comment on above: Performed By: #### C BCMAN ####[facility] X[address]qofduy[address] [place] [address]Dr. Bhavani Barragan ATYPICAL LYMPH % Normal [facility] Comment on above: Performed By: #### C BCMAN ####[facility] Erx[address]rttlkb[address] [place] [id number]. Yilan Barragan BAND # 0.8 103/ul Critically high 0.0-0.3 [facility] Comment on above: Performed By: #### C BCMAN ####[facility] X[address]uahtdzfm[address] [place] [address]Dr. Yilan Barragan BAND % 3 % Normal 0-5 [facility] Comment on above: Performed By: #### C BCJERSON ####[facility] [address]unhaa[address] [place] [address]Dr. Yilan Barragan BASOM # 0.00 103/ul Normal 0.00-0.10 [facility] Comment on above: Performed By: #### C OMID ####[facility] D[address]fdejxys[address] [place] [address]Dr. Yilan Barragan BASOM % 0.0 % Critically low 0.2-2.0 The [facility] Comment on above: Performed By: #### C BCJERSON ####[facility] Clqyxcgocp[address] [place] [address]Dr. Yilan Barragan BLAST # Normal [facility] Comment on above: Performed By: #### C OMID ####[facility] Suoygnuxnu[address] [place], [place] [address]Dr. Yilan Barragan BLAST % Normal [facility] Comment on above: Performed By: #### C OMID ####[facility] [address]iabblkp[address] [place] [address]Dr. Yilan Barragan CORRECTED WBC Normal 4.0-11.0 [facility] Comment on above: Performed By: #### C BCJERSON ####[facility] [address]qqcvel[address] [place] [address]Dr. Yilan Barragan EOS # 0.00 103/ul Normal 0.00-0.70 [facility] Comment on above: Performed By: #### C BCJERSON ####[facility] Iklaacyqah[address] [place] [address]Dr. Yilan Barragan EOS% 0.0 % Critically low 0.9-7.0 The [facility] Comment on above: Performed By: #### Jany ANNE ####[facility] [address]asm[address] [place], [place] [address]Km. Bhavani Barragan HCT 44.0 % Normal 36.0-48.0 [facility] Comment on above: Performed By: #### Jany ANNE ####[facility] Ct[address]reyby[address] [place], [place] [address]Hx. Bhavani Barragan HGB 13.3 g/dl Normal 12.0-16.0 [facility] Comment on above: Performed By: #### Jany ANNE ####[facility] Kuilmcjdzu8[address] [place], [place] [address]Jg. Bhavani Barragan LYMPHM # 1.08 103/ul Critically low 1.20-3.80 [facility] Comment on above: Performed By: #### Jany ANNE ####[facility] Cxuacpcxja0[address] [place] [phone]. Bhavani Barragan LYMPHM% 4.0 % Critically low 20.5-60.0 [facility] Comment on above: Performed By: #### Jany ANNE ####[facility] Glvdtzjbox40[address] [place] [phone]. Bhavani Barragan MCH 29.6 pg Normal 26.7-34.0 [facility] Comment on above: Performed By: #### Jany ANNE ####[facility] Jodhvjtrgy3934 [place] [phone]. Bhavani Barragan MCHC 30.2 g/dl Normal 29.9-35.2 [facility] Comment on above: Performed By: #### Jany ANNE ####[facility] Gyfcjwmrrh3164 [place], [place] [address]Ad. Bhavani Barragan MCV 97.8 fL Normal 81.0-99.0 [facility] Comment on above: Performed By: #### Jany ANNE ####[facility] Tsuigtmcgv6570 [place] [phone]. Bhavani Barragan METAMYELOCYTE # Normal [facility] Comment on above: Performed By: #### Jany ANNE ####[facility] Bqdjettgum75[address] [place] [address]Dr. Bhavani Barragan METAMYELOCYTE % Normal [facility] Comment on above: Performed By: #### C OMID ####[facility] Jdzqtiahqs3920 [place] [phone]. Bhavani Barragan MONOM# 0.54 103/ul Normal 0.30-0.80 [facility] Comment on above: Performed By: #### C OMID ####[facility] Hmfwsymttz9287 [place] [phone]. Bhavani Barragan MONOM% 2.0 % Normal 1.7-12.0 [facility] Comment on above: Performed By: #### C OMID ####[facility] Sluvfiydnt87[address] [place] [phone]. Bhavani Laurel MPV 10.3 fL Normal 9.5-13.5 [facility] Comment on above: Performed By: #### C OMID ####[facility] Eonpwnndly18[address] [place] [phone]. Bhavani Barragan MYELOCYTE # Normal [facility] Comment on above: Performed By: #### C OMID ####[facility] Wzpffrupqz3454 [place] [phone]. Jayceeroxi Barragan MYELOCYTE % Normal [facility] Comment on above: Performed By: #### C OMID ####[facility] Cnfzyenlgr5076 [place] [phone]. Bhavani Barragan NRBC Normal [facility] Comment on above: Performed By: #### C OMID ####[facility] Gmqypmzqyf029[address] [place] [phone]. Jayceeroxi Laurel PLT 424 103/ul Normal 150-450 [facility] Comment on above: Performed By: #### C OMID ####[facility] Ienlxkkjgs9505 [place] [phone]. Jayceeroxi Laurel RBC 4.50 106/ul Normal 4.20-5.40 [facility] Comment on above: Performed By: #### C OMID ####[facility] Iwaovgrrnj6939 [place] [phone]. Bhavani Barragan RDW 15.9 % Critically high 11.0-15.0 [facility] Comment on above: Performed By: #### C OMID ####[facility] Vlkacbknfj9313 [place] [phone]. Bhavani Barragan SEG # 24.48 103/ul Critically high 1.40-6.50 [facility] Comment on above: Performed By: #### C BCMAN ####[facility] Rxrcwdyuqg7325 [place] [phone]. Bhavani Laurel SEG % 91.0 % Critically high 43.0-75.0 [facility] Comment on above: Performed By: #### C BCJERSON ####[facility] Ievdhbxfno9613 [place] [phone] Bhavani Laurel WBC 26.9 103/ul Critically high 4.0-11.0 [facility] Comment on above: Performed By: #### C OMID ####[facility] Ghdbuoikfr96[address] [place] [address]Dr. Jayceeroxi Laurel CULTURE URINEon 03-24-2022 CULTURE URINE Normal [facility] Comment on above: Performed By: #### U RCX ####[facility] Pgospayroi8592 [place] [phone]. Bhavani Barragan POINT OF CARE GLUCOSEon 05- Glucose [Mass/Vol] 113 mg/dL Critically high 74-106 [facility] Comment on above: Performed By: #### P OCGLUC ####[facility] Hwysifihbq5043 [place] [phone] Barragan Glucose [Mass/Vol] 103 mg/dL Normal 74-106 [facility] Comment on above: Performed By: #### P OCGLUC ####[facility] Lbxnxetvbr2850 [place] [address]DrLydia Barragan Glucose [Mass/Vol] 134 mg/dL Critically high 74-106 [facility] Comment on above: Performed By: #### P OCGLUC ####[facility] Bdzorubpmk5639 [place] [address]DrLydia Barragan PROF 14(COMP METB)on 022 Albumin [Mass/Vol] 2.3 g/dL Critically low 3.4-5.0 [facility] Comment on above: Performed By: #### B [employer], CMP ####[facility] Rmrcqbuetg0968 [place] [address]Dr. Bhavani Barragan Albumin/Globulin [Mass ratio] 0.6 {ratio} Normal [facility] Comment on above: Performed By: #### B [employer], CMP ####[facility] Lywdnzyepl8910 [place] [address]Dr. Bhavani Barragan ALP [Catalytic activity/Vol] 239 U/L Critically high 46-116 [facility] Comment on above: Performed By: #### B [employer], CMP ####[facility] Cfvrey[address]lx[address] [place], [place] [address]Dr. Bhavani Barragan ALT [Catalytic activity/Vol] 185 U/L Critically high 14-59 [facility] Comment on above: Performed By: #### B [employer], CMP ####[facility] Idxqugxhlr[address] [place], [place] [address]Dr. Bhavani Barragan Anion gap [Moles/Vol] 13.8 mmol/L Normal [facility] Comment on above: Performed By: #### B [employer], CMP ####[facility] F[address]wietbtpt[address] [place], [place] [address]Dr. Bhavani Barragan AST [Catalytic activity/Vol] 64 U/L Critically high 15-37 [facility] Comment on above: Performed By: #### B [employer], CMP ####[facility] Xelirdphsi8724 [place] [address]Dr. Bhavani Barragan Bilirubin [Mass/Vol] 0.6 mg/dL Normal 0.2-1.0 [facility] Comment on above: Performed By: #### B [employer], CMP ####[facility] Svnyvcuznp[address] [place], [place] [address]Dr. Bhavani Barragan Calcium [Mass/Vol] 7.3 mg/dL Critically low 8.5-10.1 [facility] Comment on above: Performed By: #### B [employer], CMP ####[facility] Egppeojafs6102 [place] [address]Dr. Bhavani Barragan Chloride [Moles/Vol] 105 mmol/L Normal 98-107 [facility] Comment on above: Performed By: #### B [employer], CMP ####[facility] Qsrticbhly67[address] [place], [place] [address]Dr. Bhavani Barragan CO2 [Moles/Vol] 20.9 mmol/L Critically low 21.0-32.0 [facility] Comment on above: Performed By: #### B [employer], CMP ####[facility] Gwpypmmhdh[address] [place], [place] [address]Dr. Bhavani Barragan Creatinine [Mass/Vol] 1.24 mg/dL Critically high 0.55-1.02 [facility] Comment on above: Performed By: #### B [employer], CMP ####[facility] Snkiwtitgf5[address] [place], [place] [address]Dr. Jayceeroxi Laurel EGFR-AF SINGAPOREAN 50 mL/min/1.73m2 Critically low >=60 [facility] Comment on above: Performed By: #### B [employer], CMP ####[facility] Nnqryofovo01[address] [place], [place] [address]Dr. Bhavani Laurel EGFR-NON AF [place] 41 mL/min/1.73m2 Critically low >=60 [facility] Comment on above: Performed By: #### B [employer], CMP ####[facility] Oxxpguadww54[address] [place], [place] [address]Dr. Jayceeroxi Laurel Globulin (S) [Mass/Vol] 3.8 g/dL Normal [facility] Comment on above: Performed By: #### B [employer], CMP ####[facility] Jvmquatscm3393 [place] [address]Dr. Jayceeroxi Laurel Glucose [Mass/Vol] 164 mg/dL Critically high 74-106 [facility] Comment on above: Performed By: #### B [employer], CMP ####[facility] Cqxamumsdg[address] [place], [place] [address]Dr. Bhavani Barragan Potassium [Moles/Vol] 3.7 mmol/L Normal 3.5-5.1 [facility] Comment on above: Performed By: #### B [employer], CMP ####[facility] Uogqsnbekb57[address] [place] [address]Dr. Bhavani Barragan Protein [Mass/Vol] 6.1 g/dL Critically low 6.4-8.2 [facility] Comment on above: Performed By: #### B [employer], CMP ####[facility] Uqwkeuuhfm[address] [place], [place] [address]Dr. Bhavani Barragan Sodium [Moles/Vol] 136 mmol/L Normal 136-145 [facility] Comment on above: Performed By: #### B [employer], CMP ####[facility] R[address]hpgkrkd90[address] [place], [place] [address]Dr. Bhavani Barragan Urea nitrogen [Mass/Vol] 23.0 mg/dL Critically high 7.0-18.0 [facility] Comment on above: Performed By: #### B [employer], CMP ####[facility] L[address]msfzwzow[address] [place], [place] [address]Dr. Bhavani Barragan Urea nitrogen/Creatinine [Mass ratio] 18.5 mg/mg Normal [facility] Comment on above: Performed By: #### B [employer], CMP ####[facility] Tbkhmroezu[address] [place], [place] [address]Dr. Bhavani Barragan PROTIMEon 03-24-2022 INR Coag (PPP) [Relative time] 1.19 {INR} Normal [facility] Comment on above: Performed By: #### P TT, PT ####[facility] [address]jymrdrxv[address] [place], [place] [address]Dr. Bhavani Barragan INR GUIDELINES SEE BELOW Normal [facility] Comment on above: Result Comment: WALKER RED INR: 2.0 - 3.0 CONDITIONS NOT LISTED BELOW 2.5 - 3.5 FOR PROSTHETIC HEART VALVE REPLACEMENT 2.5 - 3.5 RECURRENT THROMBOSIS Performed By: #### P TT, PT ####[facility] [address]wvfnqag[address] [place], [place] [address]Dr. Bhavani Barragan PT Coag (PPP) [Time] 12.7 s Critically high 9.0-11.6 [facility] Comment on above: Performed By: #### P TT, PT ####[facility] Ylgzursfna[address] [place] [address]Dr. Bhavani Barragan PTTon 03-24-2022 aPTT Coag (Bld) [Time] 29.4 s Normal 22.3-36.2 [facility] Comment on above: Performed By: #### P TT, PT ####[facility] Cqdrlixqaf[address] [place], [place] [address]Dr. Bhavani Barragan AMMONIAon 03-23-2022 Ammonia (P) [Moles/Vol] 26 umol/L Normal 11-32 [facility] Comment on above: Performed By: #### A MM ####[facility] Zdhkvxfvul[address] [place], [place] [address]Dr. Bhavani Barragan AMYLASEon 03-23-2022 Amylase [Catalytic activity/Vol] 21 U/L Critically low 25-115 [facility] Comment on above: Performed By: #### A MY, LIPA, BNP ####[facility] Hxlwjgiozn[address] [place], [place] [address]Dr. Bhavani Barragan BNPon 03-23-2022 Natriuretic peptide B (Bld) [Mass/Vol] 6713.0 pg/mL Critically high <=1,800.0 [facility] Comment on above: Result Comment: repe ated Performed By: #### B [employer], CMP ####[facility] Nkbnklvxsv289[address] [place], [place] [address]Dr. Bhavani Barragan Natriuretic peptide B (Bld) [Mass/Vol] 6961.0 pg/mL Critically high <=1,800.0 [facility] Comment on above: Performed By: #### A MY, LIPA, BNP ####[facility] Dngjkfgubr174[address] [place], [place] [address]Dr. Bhavani Barragan CBC W MANUAL DIFFon 03-23-20 22 ANISOCYTOSIS 1+ Normal [facility] Comment on above: Performed By: #### C OMID ####[facility] Amkvpznqjj62[address] [place], [place] [address]Dr. Bhavani Barragan ATYPICAL LYMPH # Normal [facility] Comment on above: Performed By: #### C OMID ####[facility] Nnewwimuoz75[address] [place] [phone]. Bhavani Barragan ATYPICAL LYMPH % Normal [facility] Comment on above: Performed By: #### C BCJERSON ####[facility] Ygwfzxixmw0910 [place] [phone]. Bhavani Barragan BAND # 0.6 103/ul Critically high 0.0-0.3 [facility] Comment on above: Performed By: #### C BCJERSON ####[facility] Kygcjfpkkk25[address] [place] [address]Dr. Yilan Barragan BAND % 2 % Normal 0-5 [facility] Comment on above: Performed By: #### C BCJERSON ####[facility] Jscuvyvdid[address] [place] [address]Dr. Bhavani Barragan BASOM # 0.00 103/ul Normal 0.00-0.10 [facility] Comment on above: Performed By: #### C OMID ####[facility] Irjmbtzfoo12[address] [place], [place] [address]Dr. Bhavani Barragan BASOM % 0.0 % Critically low 0.2-2.0 [facility] Comment on above: Performed By: #### C BCJERSON ####[facility] Xomhjgtjzf[address] [place] [address]Dr. Jayceelan Barragan BLAST # Normal [facility] Comment on above: Performed By: #### C OMID ####[facility] Mmxnqftfgm[address] [place] [address]Dr. Yilan Barragan BLAST % Normal [facility] Comment on above: Performed By: #### C OMID ####[facility] Cpqbnqljkl7[address] [place] [address]Dr. Bhavani Barragan CORRECTED WBC Normal 4.0-11.0 [facility] Comment on above: Performed By: #### C BCJERSON ####[facility] Kavzgivsxy[address] [place] [address]Dr. Bhavani Barragan EOS # 0.30 103/ul Normal 0.00-0.70 [facility] Comment on above: Performed By: #### C BCJERSON ####[facility] Yfzzalnfis6[address] [place], [place] [address]Zr. Bhavani Barragan EOS% 1.0 % Normal 0.9-7.0 [facility] Comment on above: Performed By: #### C OMID ####[facility] Qqzuyeczws3470 [place], [place] [address]Vr. Bhavani Barragan HCT 48.1 % Critically high 36.0-48.0 [facility] Comment on above: Performed By: #### C OMID ####[facility] Mahsgphjsh9965 [place], [place] [address]Xw. Bhavani Barragan HGB 14.6 g/dl Normal 12.0-16.0 [facility] Comment on above: Performed By: #### C OMID ####[facility] Kkelugszxl9808 [place] [phone]. Bhavani Barragan LYMPHM # 0.90 103/ul Critically low 1.20-3.80 [facility] Comment on above: Performed By: #### C OMID ####[facility] Qabdmcxxri8512 [place] [phone]. Bhavani Barragan LYMPHM% 3.0 % Critically low 20.5-60.0 [facility] Comment on above: Performed By: #### C OMID ####[facility] Azsguqldlq2360 [place] [phone]. Bhavani Barragan MCH 29.4 pg Normal 26.7-34.0 [facility] Comment on above: Performed By: #### C OMID ####[facility] Ubnwzdgsda7667 [place], [place] [address]At. Bhavani Barragan MCHC 30.4 g/dl Normal 29.9-35.2 [facility] Comment on above: Performed By: #### C OMID ####[facility] Eyliczvrsh9220 [place] [phone]. Bhavani Barragan MCV 96.8 fL Normal 81.0-99.0 [facility] Comment on above: Performed By: #### C OMID ####[facility] Tebsbfioza4[address] [place] [address]Dr. Bhavani Barragan METAMYELOCYTE # Normal [facility] Comment on above: Performed By: #### C OMID ####[facility] Lxottwqild8421 [place] [phone]. Bhavani Barragan METAMYELOCYTE % Normal [facility] Comment on above: Performed By: #### C OMID ####[facility] Yizzojhclp3420 [place] [phone]. Bhavani Barragan MONOM# 0.60 103/ul Normal 0.30-0.80 [facility] Comment on above: Performed By: #### C OMID ####[facility] Rietkjdpnw9[address] [place] [address]Dr. Bhavani Barragan MONOM% 2.0 % Normal 1.7-12.0 [facility] Comment on above: Performed By: #### C OMID ####[facility] Lyirnzzryi95[address] [place] [address]Dr. Bhavani Barragan MPV 10.2 fL Normal 9.5-13.5 [facility] Comment on above: Performed By: #### C OMID ####[facility] Uudndsfyai4542 [place] [address]Dr. Bhavani Barragan MYELOCYTE # Normal [facility] Comment on above: Performed By: #### C OMID ####[facility] Cefqbyviqf5970 [place] [phone]. Bhavani Barragan MYELOCYTE % Normal [facility] Comment on above: Performed By: #### C OMID ####[facility] Huxbsntytj8928 [place] [phone]. Bhavani Barragan NRBC Normal [facility] Comment on above: Performed By: #### C OMID ####[facility] Ypsqmngdhi8440 [place] [phone]. Bhavani Barragan PLT 391 103/ul Normal 150-450 [facility] Comment on above: Performed By: #### C OMID ####[facility] Pcyobkcdor9220 [place] [phone]. Bhavani Barragan RBC 4.97 106/ul Normal 4.20-5.40 [facility] Comment on above: Performed By: #### C BCMAN ####[facility] Nqunuueuhw14[address] [place] [address]Dr. Bhavani Barragan RDW 15.8 % Critically high 11.0-15.0 [facility] Comment on above: Performed By: #### C BCMAN ####[facility] Sdibbfqndu8801 [place] [address]Dr. Bhavani Barragan SEG # 27.60 103/ul Critically high 1.40-6.50 [facility] Comment on above: Performed By: #### C BCMAN ####[facility] Jtphbckkxd4322 [place] [address]Dr. Bhavani Barragan SEG % 92.0 % Critically high 43.0-75.0 [facility] Comment on above: Performed By: #### C BCMAN ####[facility] [address]fmoliebo[address] [place], [place] [address]Dr. Bhavani Barragan WBC 30.0 103/ul Critically high 4.0-11.0 [facility] Comment on above: Performed By: #### C BCMAN ####[facility] [address]ujkjyvp[address] [place], [place] [address]Dr. Bhavani Barragan LIPASEon 03-23-2022 Lipase [Catalytic activity/Vol] 35.0 U/L Critically low 73.0-393.0 [facility] Comment on above: Performed By: #### A MY, LIPA, BNP ####[facility] Vcaaldscfn[address] [place], [place] [address]Dr. Bhavani Barragan POINT OF CARE GLUCOSEon 05-0 Glucose [Mass/Vol] 141 mg/dL Critically high 74-106 [facility] Comment on above: Performed By: #### P OCGLUC ####[facility] Bvtwrcrafd[address] [place], [place] [address]Dr. Bhavani Barragan Glucose [Mass/Vol] 107 mg/dL Critically high 74-106 [facility] Comment on above: Performed By: #### P OCGLUC ####[facility] O[address]sl[address] [place], [place] [address]Dr. Bhavani Barragan Glucose [Mass/Vol] 152 mg/dL Critically high 74-106 [facility] Comment on above: Performed By: #### P OCGLUC ####[facility] [address] [place] [address]Dr. Bhavani Barragan PROF 14(COMP METB)on 022 Albumin [Mass/Vol] 2.4 g/dL Critically low 3.4-5.0 [facility] Comment on above: Performed By: #### B [employer], CMP ####[facility] M[address]twddkqu[address] [place] [address]Dr. Bhavani Barragan Albumin/Globulin [Mass ratio] 0.6 {ratio} Normal [facility] Comment on above: Performed By: #### B [employer], CMP ####[facility] Gmvgnwiiyw[address] [place], [place] [address]Dr. Bhavani Barragan ALP [Catalytic activity/Vol] 298 U/L Critically high 46-116 [facility] Comment on above: Performed By: #### B [employer], CMP ####[facility] [address]og[address] [place] [address]Dr. Bhavani Barragan ALT [Catalytic activity/Vol] 280 U/L Critically high 14-59 [facility] Comment on above: Performed By: #### B [employer], CMP ####[facility] S[address]zysun[address] [place] [address]Dr. Bhavani Barragan Anion gap [Moles/Vol] 15.2 mmol/L Normal [facility] Comment on above: Performed By: #### B [employer], CMP ####[facility] Ezsldplbpq[address] [place], [place] [address]Dr. Bhavani Barragan AST [Catalytic activity/Vol] 146 U/L Critically high 15-37 [facility] Comment on above: Performed By: #### B [employer], CMP ####[facility] Vocqiejzdk[address] [place], [place] [address]Dr. Bhavani Braragan Bilirubin [Mass/Vol] 1.8 mg/dL Critically high 0.2-1.0 [facility] Comment on above: Performed By: #### B [employer], CMP ####[facility] [address]mfspot[address] [place] [id number]. Bhavani Barragan Calcium [Mass/Vol] 7.7 mg/dL Critically low 8.5-10.1 [facility] Comment on above: Performed By: #### B [employer], CMP ####[facility] Ezlbbetxao[address] [place] [phone]. Bhavani Barragan Chloride [Moles/Vol] 105 mmol/L Normal 98-107 [facility] Comment on above: Performed By: #### B [employer], CMP ####[facility] U[address]afmdiix[address] [place] [address]Dr. Bhavani Barragan CO2 [Moles/Vol] 22.0 mmol/L Normal 21.0-32.0 [facility] Comment on above: Performed By: #### B [employer], CMP ####[facility] Keaarlnyby[address] [place], [place] [address]Dr. Bhavani Barragan Creatinine [Mass/Vol] 1.44 mg/dL Critically high 0.55-1.02 [facility] Comment on above: Performed By: #### B [employer], CMP ####[facility] Zzwesruddk[address] [place], [place] [address]Dr. Bhavani Barragan EGFR-AF SING[place]OREAN 42 mL/min/1.73m2 Critically low >=60 [facility] Comment on above: Performed By: #### B [employer], CMP ####[facility] Nbzyanpxuk[address] [place], [place] [address]Dr. Bhavani Barragan EGFR-NON AF [place]AN 35 mL/min/1.73m2 Critically low >=60 [facility] Comment on above: Performed By: #### B [employer], CMP ####[facility] Febpsszvlx[address] [place], [place] [address]Dr. Bhavani Barragan Globulin (S) [Mass/Vol] 4.0 g/dL Normal [facility] Comment on above: Performed By: #### B [employer], CMP ####[facility] Miuzigmmco7[address] [place], [place] [address]Dr. Bhavani Laurel Glucose [Mass/Vol] 136 mg/dL Critically high 74-106 [facility] Comment on above: Performed By: #### B [employer], CMP ####[facility] Scmspqwrrx[address] [place], [place] [address]Dr. Bhavani Barragan Potassium [Moles/Vol] 4.2 mmol/L Normal 3.5-5.1 [facility] Comment on above: Performed By: #### B [employer], CMP ####[facility] Yzhcpblbro056[address] [place], [place] [address]Dr. Bhavani Barragan Protein [Mass/Vol] 6.4 g/dL Normal 6.4-8.2 [facility] Comment on above: Performed By: #### B [employer], CMP ####[facility] Noknvurcmg[address] [place], [place] [address]Dr. Bhavani Barragan Sodium [Moles/Vol] 138 mmol/L Normal 136-145 [facility] Comment on above: Performed By: #### B [employer], CMP ####[facility] Xfchuxsvap[address] [place], [place] [address]Dr. Bhavani Barragan Urea nitrogen [Mass/Vol] 23.0 mg/dL Critically high 7.0-18.0 [facility] Comment on above: Performed By: #### B [employer], CMP ####[facility] Dqxxlqsymh[address] [place], [place] [address]Dr. Bhavani Barragan Urea nitrogen/Creatinine [Mass ratio] 16.0 mg/mg Normal [facility] Comment on above: Performed By: #### B [employer], CMP ####[facility] Axbczsrmoc[address] [place], [place] [address]Dr. Bhavani Barragan PROTIMEon 03-23-2022 INR Coag (PPP) [Relative time] 1.53 {INR} Normal [facility] Comment on above: Performed By: #### P TT, PT ####[facility] Qxpjxzbugc639[address] [place], [place] [address]Dr. Bhavani Barragan INR GUIDELINES SEE BELOW Normal [facility] Comment on above: Result Comment: WALKER RED INR: 2.0 - 3.0 CONDITIONS NOT LISTED BELOW 2.5 - 3.5 FOR PROSTHETIC HEART VALVE REPLACEMENT 2.5 - 3.5 RECURRENT THROMBOSIS Performed By: #### P TT, PT ####[facility] [address] [place] [address]Dr. Bhavani Barragan PT Coag (PPP) [Time] 16.1 s Critically high 9.0-11.6 [facility] Comment on above: Performed By: #### P TT, PT ####[facility] Excjehmtjw[address] [place], [place] [address]Dr. Bhavani Barragan PTTon 03-23-2022 aPTT Coag (Bld) [Time] 29.9 s Normal 22.3-36.2 [facility] Comment on above: Performed By: #### P TT, PT ####[facility] Hohfpcuiqn[address] [place], [place] [address]Dr. Bhavani Barragan BILIRUBIN CONJUGATED (DIRECT )on 03-22-2022 BILI, CONJUGATED 2.3 mg/dL Critically high 0.0-0.2 [facility] Comment on above: Performed By: #### D RAI ####[facility] Ynhulwxphh[address] [place], [place] [address]Dr. Bhavani Barragan BNPon 03-22-2022 Natriuretic peptide B (Bld) [Mass/Vol] 2436.0 pg/mL Critically high <=1,800.0 [facility] Comment on above: Result Comment: this BNP was run on specimen from ER drawn on 03/22 at 1606 Performed By: #### B [employer] ####[facility] Ojvqfzqlsv[address] [place], [place] [address]Dr. Bhavani Barragan CBC W MANUAL DIFFon 03-22-20 22 ATYPICAL LYMPH # Normal [facility] Comment on above: Performed By: #### C BCJERSON ####[facility] J[address]nu[address] [place], [place] [address]Dr. Bhavani Barragan ATYPICAL LYMPH % Normal [facility] Comment on above: Performed By: #### C BCMAN ####[facility] Djxciwvzkm[address] [place], [place] [address]Dr. Bhavani Barragan BAND # 0.9 103/ul Critically high 0.0-0.3 [facility] Comment on above: Performed By: #### C BCMAN ####[facility] A[address]unukor[address] [place] [phone]. Yiroxi Barragan BAND % 3 % Normal 0-5 [facility] Comment on above: Performed By: #### C BCJERSON ####[facility] Ccwvpcbevu[address] [place] [phone]. Yiroxi Barragan BASOM # 0.00 103/ul Normal 0.00-0.10 [facility] Comment on above: Performed By: #### C BCJERSON ####[facility] [address]owxrr[address] [place] [address]Dr. Yiroxi Barragan BASOM % 0.0 % Critically low 0.2-2.0 [facility] Comment on above: Performed By: #### C BCJERSON ####[facility] [address]pbzvg[address] [place] [address]Dr. Yiroxi Barragan BLAST # Normal [facility] Comment on above: Performed By: #### C BCJERSON ####[facility] J[address]okcoq[address] [place] [address]Dr. Yilan Barragan BLAST % Normal [facility] Comment on above: Performed By: #### C BCJERSON ####[facility] [address]kybmxo[address] [place] [address]Dr. Bhavani Barragan CORRECTED WBC Normal 4.0-11.0 [facility] Comment on above: Performed By: #### C OMID ####[facility] [address]coer[address] [place] [address]Dr. Bhavani Barragan EOS # 0.00 103/ul Normal 0.00-0.70 [facility] Comment on above: Performed By: #### C BCJERSON ####[facility] [address]natphpz[address] [place] [address]Dr. Bhavani Barragan EOS% 0.0 % Critically low 0.9-7.0 [facility] Comment on above: Performed By: #### C BCJERSON ####[facility] [address]njgwd[address] [place] [address]Dr. Yiroxi Barragan HCT 44.6 % Normal 36.0-48.0 [facility] Comment on above: Performed By: #### C BCMAN ####[facility] [address] [place], [place] [address]Wy. Bhavani Barragan HGB 13.9 g/dl Normal 12.0-16.0 [facility] Comment on above: Performed By: #### Jany ANNE ####[facility] Wfq[address]tdrof[address] [place], [place] [address]Vv. Bhavani Barragan LYMPHM # 0.60 103/ul Critically low 1.20-3.80 [facility] Comment on above: Performed By: #### Jany ANNE ####[facility] [address]epkui[address] [place] [phone]. Bhavani Barragan LYMPHM% 2.0 % Critically low 20.5-60.0 [facility] Comment on above: Performed By: #### Jany ANNE ####[facility] Awvwzfvxlq[address] [place] [phone]. Bhavani Barragan MCH 29.8 pg Normal 26.7-34.0 [facility] Comment on above: Performed By: #### Jany ANNE ####[facility] Ucjdnprzbd[address] [place] [address]Dr. Bhavani Barragan MCHC 31.2 g/dl Normal 29.9-35.2 [facility] Comment on above: Performed By: #### Jany ANNE ####[facility] Qyjrtrhfmv9[address] [place] [phone]. Bhavani Barragan MCV 95.7 fL Normal 81.0-99.0 [facility] Comment on above: Performed By: #### Jany ANNE ####[facility] Wenmniwjga[address] [place], [place] [address]Df. Bhavani Barragan METAMYELOCYTE # Normal [facility] Comment on above: Performed By: #### Jany ANNE ####[facility] Gjeefykqnj[address] [place] [phone]. Bhavani Barragan METAMYELOCYTE % Normal [facility] Comment on above: Performed By: #### Jany ANNE ####[facility] Zdbdssvrsu5[address] [place] [phone]. Bhavani Barragan MONOM# 0.60 103/ul Normal 0.30-0.80 [facility] Comment on above: Performed By: #### C OMID ####[facility] Epeddsesjk4[address] [place] [phone]. Bhavani Barragan MONOM% 2.0 % Normal 1.7-12.0 [facility] Comment on above: Performed By: #### C OMID ####[facility] Hndqlsewrz[address] [place] [phone]. Bhavani Barragan MPV 9.7 fL Normal 9.5-13.5 [facility] Comment on above: Performed By: #### C BCJERSON ####[facility] Edx[address]ldhsl[address] [place] [address]Dr. Bhavani Barragan MYELOCYTE # Normal [facility] Comment on above: Performed By: #### C OMID ####[facility] [address]emsawn[address] [place], [place] [address]Dr. Bhavani Barragan MYELOCYTE % Normal [facility] Comment on above: Performed By: #### C OMID ####[facility] Z[address]rltaadjz[address] [place] [address]Dr. Bhavani Barragan NRBC Normal [facility] Comment on above: Performed By: #### C OMID ####[facility] Uvsjsntjds6[address] [place] [phone]. Bhavani Barragan PLT 436 103/ul Normal 150-450 [facility] Comment on above: Performed By: #### C OMID ####[facility] Elhdvwpxsp9[address] [place] [phone]. Bhavani Barragan RBC 4.66 106/ul Normal 4.20-5.40 [facility] Comment on above: Performed By: #### C OMID ####[facility] Toql[address]ymz[address] [place], [place] [address]Dr. Jayceeroxi Laurel RDW 15.2 % Critically high 11.0-15.0 [facility] Comment on above: Performed By: #### C OMID ####[facility] Mjlfqlizfu[address] [place], [place] [address]Dr. Bhavani Barragan SEG # 28.09 103/ul Critically high 1.40-6.50 [facility] Comment on above: Performed By: #### C OMID ####[facility] Divxbthlvt5186 [place], [place] [address]Jc. Bhavani Barragan SEG % 93.0 % Critically high 43.0-75.0 [facility] Comment on above: Performed By: #### C ALICIAMAN ####[facility] Aov[address]helto1358 [place], [place] [address]Et. Bhavani Barragan WBC 30.2 103/ul Critically high 4.0-11.0 [facility] Comment on above: Result Comment: test repeated critical value verified Performed By: #### C OMID ####[facility] Cf[address]hnjmzu5388 [place], [place] [address]TpLydia Barragan CULTURE BLOODon 03-22-2022 Microscopic examination of blood, culture Culture Observations: NO GROWTH AT 5 DAYS. Normal [facility] Comment on above: Performed By: #### B LDCX2 ####[facility] V[address]cdqje4808 [place], [place] [address]Xs. Bhavani Barragan Performed By: #### B LDCX1 ####[facility] Gszsmnwwzw[address] [place] [phone]. Bhavani Barragan Covid-19 PCR (CVDTB)on SARS-CoV-2 (COVID-19) RNA MATTHEW+probe Ql (Unsp spec) Not detected Normal NOT DETECTED [facility] Comment on above: Result Comment: When diagnostic testing is negative, the possibility of a false negative should be considered inthe context of a patient's recent exposures and the presence of clinical signs and symptomsconsistent with SARS-CoV-2.This test is not yet approved or cleared by the [place] FDA. When there are no FDA-approved or cleared tests available, and other criteria are met, FDA can make tests available under an emergency access mechanism called an Emergency Use Authorization (EUA). The EUA for this test is supported by the [place] of Health and Human Service's declaration that circumstances exist to justify the emergency use of in vitro diagnostics for the detection and/or diagnosis of the virus that causes COVID-19. This EUA will remain in effect for the duration of the COVID-19 declaration justifying emergency of IVDs, unless it is terminated or revoked by the FDA (after which the test may no longer be used). Performed By: #### C VDTB ####[facility] [address]axry[address] [place] [address]Dr. Bhavani Barragan ER URINE PROFILEon 2 Bilirubin Ql (U) MODERATE Abnormal NEGATIVE [facility] Comment on above: Performed By: #### U MICRO, ERUR ####[facility] Tobietxpii[address] [place], [place] [address]Dr. Bhavani Barragan Clarity (U) CLEAR Normal CLEAR [facility] Comment on above: Performed By: #### U MICRO, ERUR ####[facility] Evffxujdzj[address] [place], [place] [address]Dr. Bhavani Barragan Color (U) YELLOW Normal YELLOW [facility] Comment on above: Performed By: #### U MICRO, ERUR ####[facility] Jdrlrdiskx[address] [place], [place] [address]Dr. Bhavani Barragan ERUAHD A micrscopic examination will be performed if indicated. Normal [facility] Comment on above: Performed By: #### U MICRO, ERUR ####[facility] Svnenymuxc[address] [place], [place] [address]Dr. Bhavani Barragan Glucose Ql (U) Negative Normal NEGATIVE [facility] Comment on above: Performed By: #### U MICRO, ERUR ####[facility] Hpvxoluwjw[address] [place], [place] [address]Dr. Bhavani Barragan Hemoglobin Ql (U) TRACE-INTACT Abnormal NEGATIVE The [facility] Comment on above: Performed By: #### U MICRO, ERUR ####[facility] Xaupbtpvxl[address] [place], [place] [address]Dr. Bhavani Barragan Ketones Ql (U) Negative Normal NEGATIVE [facility] Comment on above: Performed By: #### U MICRO, ERUR ####[facility] Iqsahgtoie[address] [place], [place] [address]Dr. Bhavani Barragan LEUKOCYTES LARGE Abnormal NEGATIVE [facility] Comment on above: Performed By: #### U MICRO, ERUR ####[facility] [address]ybvchrc[address] [place] [address]Dr. Bhvaani Barragan Nitrite Ql (U) Negative Normal NEGATIVE [facility] Comment on above: Performed By: #### U MICRO, ERUR ####[facility] S[address]ynvvhuf[address] [place] [address]Dr. Bhavani Barragan pH (U) 5.5 [pH] Normal 5-9 [facility] Comment on above: Performed By: #### U MICRO, ERUR ####[facility] [address]irjhu[address] [place] [address]Dr. Bhavani Barragan Protein (U) [Mass/Vol] 30 mg/dL Abnormal NEGATIVE/ TRACE [facility] Comment on above: Performed By: #### U MICRO, ERUR ####[facility] Hujnckirsa[address] [place], [place] [address]Dr. Bhavani Barragan SPEC GRAVITY 1.020 Normal 1.005-<=1.[address] [place] [address] Comment on above: Performed By: #### U MICRO, ERUR ####[facility] Nyumoqrhql[address] [place], [place] [address]Dr. Bhavani Barragan UR MICRO IND INDICATED Normal [facility] Comment on above: Performed By: #### U MICRO, ERUR ####[facility] Eex[address]ysnrxr[address] [place] [address]Dr. Bhavani Barragan Urobilinogen Qn (U) 4 {Ridge'U}/dL Abnormal 0.2 - 1.0 [facility] Comment on above: Performed By: #### U MICRO, ERUR ####[facility] Ysnpotbrsk[address] [place], [place] [address]Dr. Bhavani Barragan LACTATE/LACTIC ACIDon 2021 Lactate [Moles/Vol] 0.9 mmol/L Normal 0.4-2.0 [facility] Comment on above: Performed By: #### L ACT ####[facility] Bavhgwvygo347[address] [place], [place] [address]Dr. Bhavani Barragan Lactate [Moles/Vol] 1.2 mmol/L Normal 0.4-2.0 [facility] Comment on above: Performed By: #### L ACT ####[facility] Yeonngivmt[address] [place] [address]Dr. Bhavani Barragan POINT OF CARE GLUCOSEon Glucose [Mass/Vol] 188 mg/dL Critically high 74-106 [facility] Comment on above: Performed By: #### P OCGLUC ####[facility] Xofyfvisyz[address] [place], [place] [address]DrLydia Barragan PROF 14(COMP METB)on 022 Albumin [Mass/Vol] 2.9 g/dL Critically low 3.4-5.0 [facility] Comment on above: Performed By: #### C MP ####[facility] Jrjefdrniv[address] [place], [place] [address]Dr. Bhavani Barragan Albumin/Globulin [Mass ratio] 0.7 {ratio} Normal [facility] Comment on above: Performed By: #### C MP ####[facility] Mhgesacown[address] [place], [place] [address]Dr. Bhavani Barragan ALP [Catalytic activity/Vol] 372 U/L Critically high 46-116 [facility] Comment on above: Performed By: #### C MP ####[facility] Lwihebxjvj[address] [place], [place] [address]Dr. Bhavani Barragan ALT [Catalytic activity/Vol] 402 U/L Critically high 14-59 [facility] Comment on above: Performed By: #### C MP ####[facility] [address]rmtqpdtvg[address] [place] [address]Dr. Bhavani Barragan Anion gap [Moles/Vol] 10.6 mmol/L Normal [facility] Comment on above: Performed By: #### C MP ####[facility] Dygxuebbno[address] [place], [place] [address]Dr. Bhavani Barragan AST [Catalytic activity/Vol] 346 U/L Critically high 15-37 [facility] Comment on above: Performed By: #### C MP ####[facility] Kekzwlxrpb[address] [place], [place] [address]Dr. Bhavani Barragan Bilirubin [Mass/Vol] 2.8 mg/dL Critically high 0.2-1.0 [facility] Comment on above: Performed By: #### C MP ####[facility] V[address]xbultoov[address] [place], [place] [address]Dr. Bhavani Barragan Calcium [Mass/Vol] 7.9 mg/dL Critically low 8.5-10.1 [facility] Comment on above: Performed By: #### C MP ####[facility] H[address]aqwucbl[address] [place], [place] [address]Dr. Bhavani Barragan Chloride [Moles/Vol] 106 mmol/L Normal 98-107 [facility] Comment on above: Performed By: #### C MP ####[facility] Onydwyuanp405[address] [place], [place] [address]Dr. Bhavani Barragan CO2 [Moles/Vol] 23.5 mmol/L Normal 21.0-32.0 [facility] Comment on above: Performed By: #### C MP ####[facility] [address]mweydkwvp[address] [place], [place] [address]Dr. Bhavani Barragan Creatinine [Mass/Vol] 1.57 mg/dL Critically high 0.55-1.02 [facility] Comment on above: Performed By: #### C MP ####[facility] Ydiluicbof[address] [place], [place] [address]Dr. Bhavani Laurel EGFR-AF [place] 38 mL/min/1.73m2 Critically low >=60 [facility] Comment on above: Performed By: #### C MP ####[facility] X[address]vqumccok[address] [place], [place] [address]Dr. Bhavani Laurel EGFR-NON AF [place] 32 mL/min/1.73m2 Critically low >=60 [facility] Comment on above: Performed By: #### C MP ####[facility] [address]iqxotjuax[address] [place], [place] [address]Dr. Bhavani Laurel Globulin (S) [Mass/Vol] 4.0 g/dL Normal [facility] Comment on above: Performed By: #### C MP ####[facility] Tgzhuxidjm[address] [place], [place] [address]Dr. Jayceeroxi Barragan Glucose [Mass/Vol] 151 mg/dL Critically high 74-106 [facility] Comment on above: Performed By: #### C MP ####[facility] [address]nj[address]juy[address] [place] [address]Dr. Jayceeroxi Barragan Potassium [Moles/Vol] 4.1 mmol/L Normal 3.5-5.1 [facility] Comment on above: Performed By: #### C MP ####[facility] [address]jwshf[address] [place] [address]Dr. Jayceeroxi Barragan Protein [Mass/Vol] 6.9 g/dL Normal 6.4-8.2 [facility] Comment on above: Performed By: #### C MP ####[facility] [address]zzdqdvlt[address] [place] [address]Dr. Bhavani Barragan Sodium [Moles/Vol] 136 mmol/L Normal 136-145 [facility] Comment on above: Performed By: #### C MP ####[facility] [address]unwhuccxe[address] [place] [address]Dr. Bhavani Barragan Urea nitrogen [Mass/Vol] 23.0 mg/dL Critically high 7.0-18.0 [facility] Comment on above: Performed By: #### C MP ####[facility] [address]vfonkfdv[address] [place] [address]Dr. Bhavani Barragan Urea nitrogen/Creatinine [Mass ratio] 14.6 mg/mg Normal [facility] Comment on above: Performed By: #### C MP ####[facility] [address]mzsy[address] [place] [address]Dr. Bhavani Barragan URINE MICROSCOPIC ONLYon BACTERIA LARGE Abnormal NONE SEEN [facility] Comment on above: Performed By: #### U MICRO, ERUR ####[facility] [facility] [id number] [place] [address]Dr. Bhavani Barragan Bacteria identified Cx Nom (U) INDICATED Normal [facility] Comment on above: Performed By: #### U MICRO, ERUR ####[facility] [id number] [place] [address]Dr. Bhavani Barragan CAST NONE SEEN Normal NONE SEEN [facility] Comment on above: Performed By: #### U MICRO, ERUR ####[facility] [address] [place] [address]Dr. Bhavani Barragan Crystals LM Nom (Urine sed) NONE SEEN Normal NONE SEEN [facility] Comment on above: Performed By: #### U MICRO, ERUR ####[facility] [id number] [place] [address]Dr. Bhavani Barragna Epithelial cells LM Ql (Urine sed) FEW Abnormal NONE SEEN /RARE [facility] Comment on above: Performed By: #### U MICRO, ERUR ####[facility] [address] [place] [address]Dr. Bhavani Barragan MUCOUS NONE SEEN Normal NONE SEEN [facility] Comment on above: Performed By: #### U MICRO, ERUR ####[facility] [address] [place], [place] [address]Dr. Bhavani Barragan RBC 2-5 Abnormal 0-2 [facility] Comment on above: Performed By: #### U MICRO, ERUR ####[facility] [address] [place], [place] [address]Dr. Bhavani Barragan WBC (U) [#/Vol] /uL Abnormal NONE SEEN [facility] Comment on above: Performed By: #### U MICRO, ERUR ####[facility] [address] [place], [place] [address]Dr. Bhavani Barragan US SINGLE QUAD RT UPPERon US SINGLE QUAD RT UPPER Normal [facility] XR CHEST 1 Von 03-22-2022 XR CHEST 1 V Normal [facility] CBC AND ELECTRONIC DIFFon Basophils (Bld) [#/Vol] 0.23 10*3/uL High 0.00-0.15 [facility] Comment on above: Performed By: #### R ETIC, [id number] #### [facility] (DEFAULT) [address] [address] Basophils/100 WBC (Bld) 0.9 % Normal [facility] Comment on above: Performed By: #### R ETIC, [id number] #### [facility] (DEFAULT) [address] [place] [address] DIFF STATUS Electronic Differential Normal [facility] Comment on above: Performed By: #### R ETIC, [id number] #### [facility] (DEFAULT) [address] [place] [address] Eosinophils (Bld) [#/Vol] 10*3/uL Normal 0.00-0.42 [facility] Comment on above: Performed By: #### R ETIC, [id number] #### [facility] (DEFAULT) [address] [address] Eosinophils/100 WBC (Bld) 0.0 % Normal [facility] Comment on above: Performed By: #### R ETIC, [id number] #### [facility] (DEFAULT) [address] [place] [address] Hematocrit (Bld) [Volume fraction] 52.1 % High 34.9-44.3 [facility] Comment on above: Performed By: #### R ETIC, [id number] #### [facility] (DEFAULT) [address] [address] Hemoglobin (Bld) [Mass/Vol] 16.8 g/dL High 11.4-15.2 [facility] Comment on above: Performed By: #### R ETIC, [id number] #### [facility] (DEFAULT) [address] [place] [address] Immature Grans % 1.3 % Normal [facility] Comment on above: Performed By: #### R ETIC, [id number] #### [facility] (DEFAULT) [address] [address] Immature Grans Absolute 0.34 K/uL High <=0.09 [facility] Comment on above: Performed By: #### R ETIC, [id number] #### [facility] (DEFAULT) [address] [address] Lymphocytes (Bld) [#/Vol] 1.24 10*3/uL Normal 1.16-3.51 [facility] Comment on above: Performed By: #### R ETIC, [id number] #### [facility] (DEFAULT) [address] [place] [address] Lymphocytes/100 WBC (Bld) 4.9 % Normal [facility] Comment on above: Performed By: #### R ETIC, [id number] #### [facility] (DEFAULT) [address] [place] [address] MCV (RBC) [Entitic vol] 97.4 fL Normal 79.6-97.7 [facility] Comment on above: Performed By: #### R ETIC, [id number] #### [facility] (DEFAULT) [address] [place] [address] Mean Cell Hgb 31.4 pg Normal 25.9-33.9 [facility] Comment on above: Performed By: #### R ETIC, [id number] #### [facility] (DEFAULT) [address] [place] [address] 50059 Mean Cell Hgb Conc 32.2 g/dL Normal 31.4-35.9 [facility] Comment on above: Performed By: #### R ETIC, [id number] #### [facility] (DEFAULT) [address] [place] [address] Monocytes (Bld) [#/Vol] 0.47 10*3/uL Normal 0.22-0.87 [facility] Comment on above: Performed By: #### R ETIC, [id number] #### [facility] (DEFAULT) [address] [address] Monocytes/100 WBC (Bld) 1.9 % Normal [facility] Comment on above: Performed By: #### R ETIC, [id number] #### [facility] (DEFAULT) [address] [place] [address]990 Nucleated RBC 0.1 /100 WBC Normal <=0.2 [facility] Comment on above: Performed By: #### R ETIC, [id number] #### [facility] (DEFAULT) [address] [place] [address] 63898 Platelet mean volume (Bld) [Entitic vol] 11.1 fL Normal 8.5-12.2 [facility] Comment on above: Performed By: #### R ETIC, [id number] #### [facility] (DEFAULT) [address] [place] [address] Platelets (Bld) [#/Vol] 174 10*3/uL Normal 150-393 [facility] Comment on above: Performed By: #### R ETIC, [id number] #### [facility] (DEFAULT) [address] [place] [address]381 RBC (Bld) [#/Vol] 5.35 10*6/uL High 3.91-5.04 [facility] Comment on above: Performed By: #### R ETIC, [id number] #### [facility] (DEFAULT) [address] [place] [address] 00513 RBC Distribution 16.3 % High 10.8-14.9 [facility] Comment on above: Performed By: #### R ETIC, [id number] #### [facility] (DEFAULT) [address] [place] [address] 6[address]19 Segs + Bands Auto 91.0 % Normal [facility] Comment on above: Performed By: #### R ETIC, [id number] #### [facility] (DEFAULT) [address] [place] [address] Segs + Bands,Absolute Auto 23.08 K/uL High 1.64-7.28 [facility] Comment on above: Performed By: #### R ETIC, [id number] #### [facility] (DEFAULT) [address] [place] [address] WBC (Bld) [#/Vol] 25.37 10*3/uL High 3.99-11.19 [facility] Comment on above: Performed By: #### R ETIC, [id number] #### [facility] (DEFAULT) [address] [place] [address] 25863 CMPN WITHOUT GLUCOSEon 11-02 Albumin [Mass/Vol] 4.3 g/dL Normal 3.5-5.0 [facility] Comment on above: Performed By: #### C MPNG #### [facility] (DEFAULT) [address] [place] [address] 12353 ALP [Catalytic activity/Vol] 80 U/L Normal 32-126 [facility] Comment on above: Performed By: #### C MPNG #### [facility] (DEFAULT) [address] [place] [address]26 ALT [Catalytic activity/Vol] 8 U/L Low 9-48 [facility] Comment on above: Performed By: #### C MPNG #### [facility] (DEFAULT) [address] [place] [address] 24716 Anion gap [Moles/Vol] 13 mmol/L Normal 7-17 [facility] Comment on above: Performed By: #### C MPNG #### [facility] (DEFAULT) [address] [place] [address] 81385 AST [Catalytic activity/Vol] 14 U/L Normal 14-40 [facility] Comment on above: Performed By: #### C MPNG #### [facility] (DEFAULT) [address] [place] [address] 96269 Bilirubin [Mass/Vol] 0.5 mg/dL Normal <1.5 [facility] Comment on above: Performed By: #### C MPNG #### [facility] (DEFAULT) [address] [address] Calcium [Mass/Vol] 9.1 mg/dL Normal 8.6-10.5 [facility] Comment on above: Performed By: #### C MPNG #### [facility] (DEFAULT) [address] [place] [address] 06125 Chloride [Moles/Vol] 108 mmol/L Normal 98-108 [facility] Comment on above: Performed By: #### C MPNG #### [facility] (DEFAULT) [address] [place] [address] 31710 CO2 [Moles/Vol] 21 mmol/L Low 22-30 [facility] Comment on above: Performed By: #### C MPNG #### [facility] (DEFAULT) [address] [place] [address] 47447 Creatinine [Mass/Vol] 1.36 mg/dL High 0.50-1.20 [facility] Comment on above: Performed By: #### C MPNG #### [facility] (DEFAULT) [address] [place] [address] 47433 EST GFR, 45 mL/min/1.73sqM Low >=60 [facility] Comment on above: Performed By: #### C MPNG #### [facility] (DEFAULT) [address] [place] [address] 73950 EST GFR,Non 37 mL/min/1.73sqM Low >=60 [facility] Comment on above: Performed By: #### C MPNG #### [facility] (DEFAULT) [address] [place] [address] 22771 Potassium [Moles/Vol] 5.0 mmol/L Normal 3.5-5.0 [facility] Comment on above: Performed By: #### C MPNG #### [facility] (DEFAULT) [address] [place] [address] 29088 Protein [Mass/Vol] 7.6 g/dL Normal 6.4-8.3 [facility] Comment on above: Performed By: #### C MPNG #### [facility] (DEFAULT) [address] [place] [address] 12837 Sodium [Moles/Vol] 137 mmol/L Normal 133-143 [facility] Comment on above: Performed By: #### C MPNG #### [facility] (DEFAULT) [address] [place] [address] 90999 Urea nitrogen [Mass/Vol] 42 mg/dL High 7- [facility] Comment on above: Performed By: #### C MPNG #### [facility] (DEFAULT) [address] [place] [address] 45956 Urea nitrogen/Creatinine [Mass ratio] 31 mg/mg Normal [facility] Comment on above: Performed By: #### C MPNG #### [facility] (DEFAULT) [address] [place] [address] 68864 FERRITINon 11-02-2021 Ferritin [Mass/Vol] 19.2 ng/mL Normal 10.0-291.0 [facility] Comment on above: Performed By: #### F ERIB #### [facility] (DEFAULT) [address] [place] [address] 16583 RETICULOCYTESon 11-02-2021 Retic Absolute 0.1177 M/uL High 0.0324-0.114 2 [facility] Comment on above: Performed By: #### R ETIC, [id number] #### [facility] (DEFAULT) [address] [place] [address] 77933 Retic Count 2.20 % Normal 0.74-2.54 [facility] Comment on above: Performed By: #### R ETIC, [id number] #### [facility] (DEFAULT) [address] [place] [address] 26244 CBC AND ELECTRONIC DIFFon Basophils (Bld) [#/Vol] 0.20 10*3/uL High 0.00-0.15 [facility] Comment on above: Performed By: #### L [id number] #### [facility] (DEFAULT) [address] [place] [address] 46848 Basophils/100 WBC (Bld) 0.9 % Normal [facility] Comment on above: Performed By: #### L [id number] #### [facility] (DEFAULT) [address] [address] DIFF STATUS Electronic Differential Normal [facility] Comment on above: Performed By: #### L [id number] #### [facility] (DEFAULT) [address] [address] Eosinophils (Bld) [#/Vol] 10*3/uL Normal 0.00-0.42 [facility] Comment on above: Performed By: #### L [id number] #### [facility] (DEFAULT) [address] [address] Eosinophils/100 WBC (Bld) 0.1 % Normal [facility] Comment on above: Performed By: #### L [id number] #### [facility] (DEFAULT) [address] [address] Hematocrit (Bld) [Volume fraction] 47.4 % High 34.9-44.3 [facility] Comment on above: Performed By: #### L [id number] #### [facility] (DEFAULT) [address] [address] Hemoglobin (Bld) [Mass/Vol] 15.4 g/dL High 11.4-15.2 [facility] Comment on above: Performed By: #### L [id number] #### [facility] (DEFAULT) [address] [address] Immature Grans % 3.0 % Normal [facility] Comment on above: Performed By: #### L [id number] #### [facility] (DEFAULT) [address] [address] Immature Grans Absolute 0.67 K/uL High <=0.09 [facility] Comment on above: Performed By: #### L [id number] #### [facility] (DEFAULT) [address] [address] Lymphocytes (Bld) [#/Vol] 1.12 10*3/uL Low 1.16-3.51 [facility] Comment on above: Performed By: #### L [id number] #### [facility] (DEFAULT) [address] [place] [address] 92635 Lymphocytes/100 WBC (Bld) 5.0 % Normal [facility] Comment on above: Performed By: #### L [id number] #### [facility] (DEFAULT) [address] [place] [address]606 MCV (RBC) [Entitic vol] 101.5 fL High 79.6-97.7 [facility] Comment on above: Performed By: #### L [id number] #### [facility] (DEFAULT) [address] [place] [address] 19363 Mean Cell Hgb 33.0 pg Normal 25.9-33.9 [facility] Comment on above: Performed By: #### L [id number] #### [facility] (DEFAULT) [address] [place] [address] 88736 Mean Cell Hgb Conc 32.5 g/dL Normal 31.4-35.9 [facility] Comment on above: Performed By: #### L [id number] #### [facility] (DEFAULT) [address] [place] [address] 24000 Monocytes (Bld) [#/Vol] 0.51 10*3/uL Normal 0.22-0.87 [facility] Comment on above: Performed By: #### L [id number] #### [facility] (DEFAULT) [address] [place] [address] 13744 Monocytes/100 WBC (Bld) 2.3 % Normal [facility] Comment on above: Performed By: #### L [id number] #### [facility] (DEFAULT) [address] [place] [address] 50971 Nucleated RBC 0.1 /100 WBC Normal <=0.2 [facility] Comment on above: Performed By: #### L [id number] #### [facility] (DEFAULT) [address] [place] [address] 86116 Platelet mean volume (Bld) [Entitic vol] 10.4 fL Normal 8.5-12.2 [facility] Comment on above: Performed By: #### L [id number] #### [facility] (DEFAULT) [address] [address] Platelets (Bld) [#/Vol] 289 10*3/uL Normal 150-393 [facility] Comment on above: Performed By: #### L [id number] #### [facility] (DEFAULT) [address] [address] RBC (Bld) [#/Vol] 4.67 10*6/uL Normal 3.91-5.04 [facility] Comment on above: Performed By: #### L [id number] #### [facility] (DEFAULT) [address] [address] RBC Distribution 14.8 % Normal 10.8-14.9 [facility] Comment on above: Performed By: #### L [id number] #### [facility] (DEFAULT) [address] [address] Segs + Bands Auto 88.7 % Normal [facility] Comment on above: Performed By: #### L [id number] #### [facility] (DEFAULT) [address] [address] Segs + Bands,Absolute Auto 20.03 K/uL High 1.64-7.28 [facility] Comment on above: Performed By: #### L [id number] #### [facility] (DEFAULT) [address] [address] WBC (Bld) [#/Vol] 22.56 10*3/uL High 3.99-11.19 [facility] Comment on above: Performed By: #### L [id number] #### [facility] (DEFAULT) [address] [address] IMMUNOPHENOTYPING,PERIPH BLO ODon 08-17-2021 BKR DX CODE Use Ordering Normal [facility] Comment on above: Order Comment: IMMUN OPHENOTYPING DIAGNOSIS PATIENT NAME: MARÍA ELENA TAFOYA : 1940 ACCN#: [id number] REVIEWED BY: LAURA Moreno [id number] SAMPLE TYPE: Peripheral Blood LABORATORY INTERPRETATION: There is no immunophenotypic evidence of an abnormal population of B lymphocytes, T lymphocytes or myeloid blasts. PHENOTYPIC DESCRIPTION: Flow cytometric analysis of a peripheral blood was performed using a ten color technique with a gating strategy based on CD45 staining and light side scatter characteristics. Lymphocytes represent 6.1 % of the total events analyzed. Of the lymphocytes: 4.4 % are B cells (CD19+) with a [place]:Lambda ratio of 2:2 , 73.5 % are T cells (CD3+) with a CD4:CD8 ratio of 2.2 and an absolute CD4+/CD3+ count of 549 ABS/mm3 and 23.7 % are NK cells (positive for CD56 and/or CD16 and negative for CD3). ==== MARKER DESCRIPTION LYM REG% ABS/mm3 NORMAL % NML ABS ==== ABSOLUTE LYMPHOCYTE COUNT [phone] ==== CD19+ B CELL 4.4 49 2.0-21.0 20-1008 CD19+/CD20+ B CELL 4.6 52 2.0-21.0 20-1008 SIG SURFACE IG 4 K/L KAPPA/LAMBDA 2:2 RATIO CD2+ T CELL 88.8 995 70.0-92.0 700-4416 CD3+ T CELL 73.5 823 59.0-92.0 590-4416 CD4+/CD3- T CELL 0.1 CD4+/CD3+ T HELPER 49.0 549 32.0-62.0 320-2976 CD8+/CD3- T CELL 9.0 CD8+/CD3+ T SUPPRESSOR 22.0 246 11.0-40.0 110-1920 HSRA CD4/CD8 2.2 RATIO CD5+/CD19- T CELL 74.0 CD5+/CD19+ 0.4 CD23+ B CELL SUBSET 3.0 CD19+/CD10+ 0.0 CD10+ KENTRELL 0.0 CD7+/CD2- T CELL 5.3 CD7+/CD2+ T CELL 81.3 CD13+/HLA DR- MONO/GRAN 0.[address]+/CD13+ 0.2 HLADR+/CD13- 5.1 CD14+/CD13- 0.1 CD13+/CD14+ 0.1 CD56/16+/CD3- NATURAL KILLER 23.7 265 3.0-25.0 30-1200 ==== MARKERS TESTED: CD10, CD13, CD14, CD19, CD2, CD20, CD23, CD3, CD4, CD45, CD5, CD56/16, CD7, CD8, HLA DR, KAPPA, LAMBDA MARKERS BILLED: 17 This test was developed and its performance characteristics determined The [facility] at [facility]. It has not been cleared or approved by the FDA. This laboratory is certified under the Clinical Laboratory Improvement Amendments (CLIA) as qualified to perform high complexity clinical laboratory testing. This test is used for clinical purposes. It should not be regarded as investigational or for research. The [facility] Flow Cytometry Laboratory lower limit of CLL MRD detection is 0.1% of the gated lymphocytes. Performed By: #### P BIPP #### [facility] ([facility]) [address] [place] [address] Flow Interpretation See Comment Normal [facility] Comment on above: Order Comment: IMMUN OPHENOTYPING DIAGNOSIS PATIENT NAME: MARÍA ELENA TAFOYA : 1940 ACCN#: [id number] REVIEWED BY: LAURA Moreno [id number] SAMPLE TYPE: Peripheral Blood LABORATORY INTERPRETATION: There is no immunophenotypic evidence of an abnormal population of B lymphocytes, T lymphocytes or myeloid blasts. PHENOTYPIC DESCRIPTION: Flow cytometric analysis of a peripheral blood was performed using a ten color technique with a gating strategy based on CD45 staining and light side scatter characteristics. Lymphocytes represent 6.1 % of the total events analyzed. Of the lymphocytes: 4.4 % are B cells (CD19+) with a [place]:Lambda ratio of 2:2 , 73.5 % are T cells (CD3+) with a CD4:CD8 ratio of 2.2 and an absolute CD4+/CD3+ count of 549 ABS/mm3 and 23.7 % are NK cells (positive for CD56 and/or CD16 and negative for CD3). ==== MARKER DESCRIPTION LYM REG% ABS/mm3 NORMAL % NML ABS ==== ABSOLUTE LYMPHOCYTE COUNT [phone] ==== CD19+ B CELL 4.4 49 2.0-21.0 20-1008 CD19+/CD20+ B CELL 4.6 52 2.0-21.0 20-1008 SIG SURFACE IG 4 K/L KAPPA/LAMBDA 2:2 RATIO CD2+ T CELL 88.8 995 70.0-92.0 700-4416 CD3+ T CELL 73.5 823 59.0-92.0 590-4416 CD4+/CD3- T CELL 0.1 CD4+/CD3+ T HELPER 49.0 549 32.0-62.0 320-2976 CD8+/CD3- T CELL 9.0 CD8+/CD3+ T SUPPRESSOR 22.0 246 11.0-40.0 110-1920 HSRA CD4/CD8 2.2 RATIO CD5+/CD19- T CELL 74.0 CD5+/CD19+ 0.4 CD23+ B CELL SUBSET 3.0 CD19+/CD10+ 0.0 CD10+ KENTRELL 0.0 CD7+/CD2- T CELL 5.3 CD7+/CD2+ T CELL 81.3 CD13+/HLA DR- MONO/GRAN 0.[address]+/CD13+ 0.2 HLADR+/CD13- 5.1 CD14+/CD13- 0.1 CD13+/CD14+ 0.1 CD56/16+/CD3- NATURAL KILLER 23.7 265 3.0-25.0 30-1200 ==== MARKERS TESTED: CD10, CD13, CD14, CD19, CD2, CD20, CD23, CD3, CD4, CD45, CD5, CD56/16, CD7, CD8, HLA DR, KAPPA, LAMBDA MARKERS BILLED: 17 This test was developed and its performance characteristics determined The [facility] at [facility]. It has not been cleared or approved by the FDA. This laboratory is certified under the Clinical Laboratory Improvement Amendments (CLIA) as qualified to perform high complexity clinical laboratory testing. This test is used for clinical purposes. It should not be regarded as investigational or for research. The [facility] Flow Cytometry Laboratory lower limit of CLL MRD detection is 0.1% of the gated lymphocytes. Performed By: #### P BIPP #### [facility] ([facility]) [address] [place] [address] Flow Interpreted by: Efrem Charlton MD [facility] Comment on above: Order Comment: IMMUN OPHENOTYPING DIAGNOSIS PATIENT NAME: MARÍA ELENA ATFOYA : 1940 ACCN#: [id number] REVIEWED BY: LAURA Moreno [id number] SAMPLE TYPE: Peripheral Blood LABORATORY INTERPRETATION: There is no immunophenotypic evidence of an abnormal population of B lymphocytes, T lymphocytes or myeloid blasts. PHENOTYPIC DESCRIPTION: Flow cytometric analysis of a peripheral blood was performed using a ten color technique with a gating strategy based on CD45 staining and light side scatter characteristics. Lymphocytes represent 6.1 % of the total events analyzed. Of the lymphocytes: 4.4 % are B cells (CD19+) with a [place]:Lambda ratio of 2:2 , 73.5 % are T cells (CD3+) with a CD4:CD8 ratio of 2.2 and an absolute CD4+/CD3+ count of 549 ABS/mm3 and 23.7 % are NK cells (positive for CD56 and/or CD16 and negative for CD3). ==== MARKER DESCRIPTION LYM REG% ABS/mm3 NORMAL % NML ABS ==== ABSOLUTE LYMPHOCYTE COUNT [phone] ==== CD19+ B CELL 4.4 49 2.0-21.0 20-1008 CD19+/CD20+ B CELL 4.6 52 2.0-21.0 20-1008 SIG SURFACE IG 4 K/L KAPPA/LAMBDA 2:2 RATIO CD2+ T CELL 88.8 995 70.0-92.0 700-4416 CD3+ T CELL 73.5 823 59.0-92.0 590-4416 CD4+/CD3- T CELL 0.1 CD4+/CD3+ T HELPER 49.0 549 32.0-62.0 320-2976 CD8+/CD3- T CELL 9.0 CD8+/CD3+ T SUPPRESSOR 22.0 246 11.0-40.0 110-1920 HSRA CD4/CD8 2.2 RATIO CD5+/CD19- T CELL 74.0 CD5+/CD19+ 0.4 CD23+ B CELL SUBSET 3.0 CD19+/CD10+ 0.0 CD10+ KENTRELL 0.0 CD7+/CD2- T CELL 5.3 CD7+/CD2+ T CELL 81.3 CD13+/HLA DR- MONO/GRAN 0.[address]+/CD13+ 0.2 HLADR+/CD13- 5.1 CD14+/CD13- 0.1 CD13+/CD14+ 0.1 CD56/16+/CD3- NATURAL KILLER 23.7 265 3.0-25.0 30-1200 ==== MARKERS TESTED: CD10, CD13, CD14, CD19, CD2, CD20, CD23, CD3, CD4, CD45, CD5, CD56/16, CD7, CD8, HLA DR, KAPPA, LAMBDA MARKERS BILLED: 17 This test was developed and its performance characteristics determined The [facility] at [facility]. It has not been cleared or approved by the FDA. This laboratory is certified under the Clinical Laboratory Improvement Amendments (CLIA) as qualified to perform high complexity clinical laboratory testing. This test is used for clinical purposes. It should not be regarded as investigational or for research. The [facility] Flow Cytometry Laboratory lower limit of CLL MRD detection is 0.1% of the gated lymphocytes. Performed By: #### P BIPP #### [facility] (DEFAULT) [address] [address] [id number] MUTATION DETECTION , BLOODon 08-17-2021 Receiving Status Accessioned in Lab Normal [facility] Comment on above: Performed By: #### J AK2B #### [facility] (DEFAULT) [address] [address] Performed By: #### B CRSCR #### [facility] (DEFAULT) [address] [address] CBC with Differentialon 01-17 Basophils (Bld) [#/Vol] 0.20 thou/mcL Normal 0.00-0.20 [facility] Comment on above: Performed By: #### 5 7021-8 #### [address] [address] Basophils/100 WBC (Bld) 0.9 % Normal 0.0-2.0 [facility] Comment on above: Performed By: #### 5 7021-8 #### [facility] [address] [place] [address] Eosinophils (Bld) [#/Vol] 0.00 thou/mcL Normal 0.00-0.70 [facility] Comment on above: Performed By: #### 5 7021-8 #### [facility] [address] [place] [address] Eosinophils/100 WBC (Bld) 0.1 % Normal 0.0-7.0 [facility] Comment on above: Performed By: #### 5 7021-8 #### [facility] [address] [place] [address] Erythrocyte distribution width (RBC) [Entitic vol] 17.1 % High 11.0-14.8 [facility] Comment on above: Performed By: #### 5 7021-8 #### [facility] [address] [place] [address] Hematocrit (Bld) [Volume fraction] 36.3 % Normal 35.0-45.0 [facility] Comment on above: Performed By: #### 5 7021-8 #### [address] [address] Hemoglobin (Bld) [Mass/Vol] 11.8 g/dL Low 12.0-16.0 [facility] Comment on above: Performed By: #### 5 7021-8 #### [address] [address] Lymphocytes (Bld) [#/Vol] 1.40 thou/mcL Normal 1.00-4.80 [facility] Comment on above: Performed By: #### 5 7021-8 #### [address] [address] Lymphocytes/100 WBC (Bld) 7.1 % Low 22.0-44.0 [facility] Comment on above: Performed By: #### 5 7021-8 #### [address] [address] MCH (RBC) [Entitic mass] 33.0 Picograms Normal 27.0-34.0 [facility] Comment on above: Performed By: #### 5 7021-8 #### [address] [address] MCHC (RBC) [Mass/Vol] 32.5 g/dL Normal 32.0-36.0 [facility] Comment on above: Performed By: #### 5 7021-8 #### [address] [address] MCV (RBC) [Entitic vol] 101.7 fL High 80.0-97.0 [facility] Comment on above: Performed By: #### 5 7021-8 #### [address] [address] Monocytes (Bld) [#/Vol] 0.50 thou/mcL Normal 0.00-0.90 [facility] Comment on above: Performed By: #### 5 7021-8 #### [address] [address] Monocytes/100 WBC (Bld) 2.7 % Normal 0.0-12.0 [facility] Comment on above: Performed By: #### 5 7021-8 #### [facility] [address] [place] [address] Neutrophils (Bld) [#/Vol] 18.10 thou/mcL High 1.80-7.70 [facility] Comment on above: Performed By: #### 5 7021-8 #### [facility] [address] [place] [address] Neutrophils/100 WBC (Bld) 89.2 % High 40.0-70.0 [facility] Comment on above: Performed By: #### 5 7021-8 #### [facility] [address] [place] [address] Platelet mean volume (Bld) [Entitic vol] 8.2 fL Normal 6.2-12.1 [facility] Comment on above: Performed By: #### 5 7021-8 #### [facility] [address] [place] [address] Platelets (Bld) [#/Vol] 355 thou/mcL Normal 142-424 [facility] Comment on above: Performed By: #### 5 7021-8 #### [facility] [address] [place] [address] RBC (Bld) [#/Vol] 3.57 million/mcL Low 3.80-5.10 [facility] Comment on above: Performed By: #### 5 7021-8 #### [facility] [address] [place] [address] WBC (Bld) [#/Vol] 20.3 thou/mcL High 4.6-10.2 [facility] Comment on above: Performed By: #### 5 7021-8 #### [facility] [address] [place] [address] Ammoniaon 09-27-2020 Ammonia (P) [Mass/Vol] 21 umol/L Normal 9-30 [facility] Comment on above: Order Comment: Items in this order include: Ammonia Testing Performed By: [facility] [address] [place] [address] Dr. Donnie Jean, Rn Referral Items in this order include: Ammonia Testing Performed By: [facility] [address] [place] [address] Dr. Donnie Jean, Rn Referral Performed By: #### C 709 #### [facility]. [address] [place] [address] Suite - [place] [id number] B12/Folateon 09-27-2020 Cobalamin (Vitamin B12) [Mass/Vol] 683 pg/mL Normal 239-931 [facility] Comment on above: Order Comment: Items in this order include: Culture, Urine Testing Performed By: [facility] [address] [place] [address] Dr. Donnie Jean, Rn Referral Result Comment: Plea se note: Over the counter high dose supplements of Biotin that are 20 to 300 times greater than the adequate daily intake of 30 mcg/day for adults may cause a bias of 10% or more to be observed in the measured Vitamin B-12 concentrations. Performed By: #### C 734 #### [facility] [address] [place] [address] [place] [address] Folate 9.26 ng/mL Normal 2.80-20.00 [facility] Comment on above: Order Comment: Items in this order include: Culture, Urine Testing Performed By: [facility] [address] [place], [place] [id number] Dr. Donnie Jean, Rn Referral Result Comment: Plea se note: Over the counter high dose supplements of Biotin that are 20 to 300 times greater than the adequate daily intake of 30 mcg/day for adults may cause a bias of 10% or more to be observed in the measured Folate concentrations. Performed By: #### C 734 #### [facility], [facility]. [address] [place] [address] [address] [place] [address] CBC with differentialon 09-18 Erythrocyte distribution width (RBC) [Ratio] 15.4 % Normal 11.5-15.5 [facility] Comment on above: Order Comment: Items in this order include: Culture, Urine Testing Performed By: [facility] [address] [facility] [place] [address] Dr. Donnie Jean, Rn Referral Performed By: #### C 734 #### [facility] [address] [facility] [address] [place] [address] Hematocrit (Bld) [Volume fraction] 39.8 % Normal 37.0-47.0 [facility] Comment on above: Order Comment: Items in this order include: Culture, Urine Testing Performed By: [facility] [address] [place] [address]. [place] [address] Dr. Donnie Jean, Rn Referral Performed By: #### C 734 #### [facility] [address] [place] [address] [address] [place] [address] Hemoglobin (Bld) [Mass/Vol] 12.3 g/dL Normal 11.5-15.5 [facility] Comment on above: Order Comment: Items in this order include: Culture, Urine Testing Performed By: [facility] [address] [place] [address]. [place] [address] Dr. Donnie Jean, Rn Referral Performed By: #### C 734 #### [facility] [address] [facility] [address] [place] [address] MCH (RBC) [Entitic mass] 34.2 pg High 27.0-31.0 [facility] Comment on above: Order Comment: Items in this order include: Culture, Urine Testing Performed By: [facility] [place] [address] Dr. Donnie Jean, Rn Referral Performed By: #### C 734 #### [facility] [address] [place] [address] [address] [place] [address] MCHC (RBC) [Mass/Vol] 30.9 g/dL Low 32.0-36.0 [facility] Comment on above: Order Comment: Items in this order include: Culture, Urine Testing Performed By: [facility] [address] [place] [address]. [place] [address] Dr. Donnie Jean, Rn Referral Performed By: #### C 734 #### [facility] [address] [place] [address] [address] [place] [address] MCV (RBC) [Entitic vol] 110.6 fL High 78.0-100.0 [facility] Comment on above: Order Comment: Items in this order include: Culture, Urine Testing Performed By: [facility] [address] [place] [address]. [place] [address] Dr. Donnie Jean, Rn Referral Performed By: #### C 734 #### [facility] [address] [place] [address] [address] [place] [address] Platelet mean volume (Bld) [Entitic vol] 10.2 fL Normal 8.9-12.6 [facility] Comment on above: Order Comment: Items in this order include: Culture, Urine Testing Performed By: [facility] [address] [place] [address]. [place] [address] Dr. Donnie Jean, Rn Referral Performed By: #### C 734 #### [facility] [address] [place] [address] [place] [address] Platelets (Bld) [#/Vol] 423 K CUMM High 130-400 [facility] Comment on above: Order Comment: Items in this order include: Culture, Urine Testing Performed By: [facility] [address] [place] [address]. [place] [address] Dr. Donnie Jean, Rn Referral Performed By: #### C 734 #### [facility] [address] [place] [address] [address] [place] [address] RBC (Bld) [#/Vol] 3.60 M CUMM Low 3.80-5.10 [facility] Comment on above: Order Comment: Items in this order include: Culture, Urine Testing Performed By: [facility] [address] [place] [address]. [place] [address] Dr. Donnie Jean, Rn Referral Performed By: #### C 734 #### [facility] [address] [place] [address] [address] [place] [address] WBC (Bld) [#/Vol] 28.2 K CUMM Critically high 3.8-10.6 [facility] Comment on above: Order Comment: Items in this order include: Culture, Urine Testing Performed By: [facility] [address] [place] [address]. [place] [address] Dr. Donnie Jean, Rn Referral Performed By: #### C 734 #### [facility] [address] [place] [address] [address] [place] [address] Comprehensive Metabolic Pane donnie 09-27-2020 Albumin [Mass/Vol] 4.4 g/dL Normal 3.5-5.0 [facility] Comment on above: Order Comment: Items in this order include: Comprehensive Metabolic Panel, CBC with differential, TSH w/ reflex to FT4, B12/Folate, , , , Manual Differential if Indicated, Slide Scan, MicroscopeTesting Performed By: [facility] [address] [place] [address]. [place] [address] Dr. Donnie Jean, Rn Referral Performed By: #### C 709 #### [facility] [address] [place] [address] [address] [place] [address] Alk Phos 68 U/L Normal 23-159 [facility] Comment on above: Order Comment: Items in this order include: Comprehensive Metabolic Panel, CBC with differential, TSH w/ reflex to FT4, B12/Folate, , , , Manual Differential if Indicated, Slide Scan, MicroscopeTesting Performed By: [facility] [address] [place] [address]. [place] [address] Dr. Donnie Jean, Rn Referral Performed By: #### C 709 #### [facility], [facility]. [address] [place] [address] [address] [place] [address] ALT [Catalytic activity/Vol] 15 U/L Normal 0-38 [facility] Comment on above: Order Comment: Items in this order include: Comprehensive Metabolic Panel, CBC with differential, TSH w/ reflex to FT4, B12/Folate, , , , Manual Differential if Indicated, Slide Scan, MicroscopeTesting Performed By: [facility] [address] [place] [address] Dr. Donnie Jean, Rn Referral Performed By: #### C 709 #### [facility] [address] [place] [address] [address] [place] [address] AST [Catalytic activity/Vol] 21 U/L Normal 11-43 [facility] Comment on above: Order Comment: Items in this order include: Comprehensive Metabolic Panel, CBC with differential, TSH w/ reflex to FT4, B12/Folate, , , , Manual Differential if Indicated, Slide Scan, MicroscopeTesting Performed By: [facility] [address] [place] [address] Dr. Donnie Jean, Rn Referral Performed By: #### C 709 #### [facility], [facility]. [address] [place] [address] [address] [place] [address] Bilirubin [Mass/Vol] 0.5 mg/dL Normal 0.2-1.3 [facility] Comment on above: Order Comment: Items in this order include: Comprehensive Metabolic Panel, CBC with differential, TSH w/ reflex to FT4, B12/Folate, , , , Manual Differential if Indicated, Slide Scan, MicroscopeTesting Performed By: [facility] [address] [place] [address] Dr. Donnie Jean, Rn Referral Performed By: #### C 709 #### [facility], [facility]. [address] [place] [address] [address] [place] [address] Calcium [Mass/Vol] 9.7 mg/dL Normal 8.5-10.5 [facility] Comment on above: Order Comment: Items in this order include: Comprehensive Metabolic Panel, CBC with differential, TSH w/ reflex to FT4, B12/Folate, , , , Manual Differential if Indicated, Slide Scan, MicroscopeTesting Performed By: [facility] [address] [place] [address] [address] [address] Donnie Jean, Rn Referral Performed By: #### C 709 #### [facility] [address] [place] [address] [place] [address] Chloride [Moles/Vol] 111 mmol/L High 98-107 [facility] Comment on above: Order Comment: Items in this order include: Comprehensive Metabolic Panel, CBC with differential, TSH w/ reflex to FT4, B12/Folate, , , , Manual Differential if Indicated, Slide Scan, MicroscopeTesting Performed By: [facility] [address] [place] [address]. [place] [address] Dr. Donnie Jean, Rn Referral Performed By: #### C 709 #### [facility] [address] [place] [address] [place] [address] CO2 [Moles/Vol] 16.0 mmol/L Low 21.0-32.0 [facility] Comment on above: Order Comment: Items in this order include: Comprehensive Metabolic Panel, CBC with differential, TSH w/ reflex to FT4, B12/Folate, , , , Manual Differential if Indicated, Slide Scan, MicroscopeTesting Performed By: [facility] [address] [place] [address] [address] [address] Donnie Jean, Rn Referral Performed By: #### C 709 #### [facility] [address] [place] [address] [address] [place] [address] Creatinine [Mass/Vol] 1.6 mg/dL High 0.1-1.2 [facility] Comment on above: Order Comment: Items in this order include: Comprehensive Metabolic Panel, CBC with differential, TSH w/ reflex to FT4, B12/Folate, , , , Manual Differential if Indicated, Slide Scan, MicroscopeTesting Performed By: [facility] [address] [place] [address] [address] [address] Donnie Jean, Rn Referral Performed By: #### C 709 #### [facility], [facility]. [address] [place] [address] [place] [address] GFR/1.73 sq M.predicted MDRD (S/P/Bld) [Vol rate/Area] 31 mL/min per 1.73 Low >60 [facility] Comment on above: Order Comment: Items in this order include: Comprehensive Metabolic Panel, CBC with differential, TSH w/ reflex to FT4, B12/Folate, , , , Manual Differential if Indicated, Slide Scan, MicroscopeTesting Performed By: [facility] [address] [place] [address] Dr. Donnie Jean, Rn Referral Result Comment: The GFR estimate is not adjusted for race. If the patient's race is -[place], the GFR estimate must be multiplied by a factor of 1.21. Performed By: #### C 709 #### [facility]. [address] [place] [address] [address] [place] [address] Glucose [Mass/Vol] 112 mg/dL High 74-100 [facility] Comment on above: Order Comment: Items in this order include: Comprehensive Metabolic Panel, CBC with differential, TSH w/ reflex to FT4, B12/Folate, , , , Manual Differential if Indicated, Slide Scan, MicroscopeTesting Performed By: [facility] [address] [place] [address] Dr. Donnie Jean, Rn Referral Performed By: #### C 709 #### [facility], [facility]. [address] [place] [address] [place] [address] Potassium [Moles/Vol] 5.4 mmol/L High 3.5-5.3 [facility] Comment on above: Order Comment: Items in this order include: Comprehensive Metabolic Panel, CBC with differential, TSH w/ reflex to FT4, B12/Folate, , , , Manual Differential if Indicated, Slide Scan, MicroscopeTesting Performed By: [facility] [address] [place] [address] [address] [address] Donnie Jean, Rn Referral Performed By: #### C 709 #### [facility]. [address] [place] [address] [place] [address] Protein [Mass/Vol] 7.4 g/dL Normal 6.3-8.4 [facility] Comment on above: Order Comment: Items in this order include: Comprehensive Metabolic Panel, CBC with differential, TSH w/ reflex to FT4, B12/Folate, , , , Manual Differential if Indicated, Slide Scan, MicroscopeTesting Performed By: [facility] [address] [place] [address] Dr. Donnie Jean, Rn Referral Performed By: #### C 709 #### [facility]. [address] [place] [address] [place] [address] Sodium [Moles/Vol] 140 mmol/L Normal 135-145 [facility] Comment on above: Order Comment: Items in this order include: Comprehensive Metabolic Panel, CBC with differential, TSH w/ reflex to FT4, B12/Folate, , , , Manual Differential if Indicated, Slide Scan, MicroscopeTesting Performed By: [facility] [address] [place] [address] Dr. Donnie Jean, Rn Referral Performed By: #### C 709 #### [facility], [facility]. [address] [place] [address] [place] [address] Urea nitrogen [Mass/Vol] 40 mg/dL High 6-22 [facility] Comment on above: Order Comment: Items in this order include: Comprehensive Metabolic Panel, CBC with differential, TSH w/ reflex to FT4, B12/Folate, , , , Manual Differential if Indicated, Slide Scan, MicroscopeTesting Performed By: [facility] [address] [place] [address] [address] [address] Donnie Jean, Rn Referral Performed By: #### C 709 #### [facility], [facility]. [address] [place] [address] [place] [address] Culture, Urineon 09-27-2020 RPT Microbiology results Normal [facility] Comment on above: Order Comment: Items in this order include: Culture, Urine Testing Performed By: [facility] [address] [place] [address]. [place] [address] Dr. Donnie Jean, Rn Referral Result Comment: Kaylee l Result: No growth at 24 hours. Performed By: #### C 734 #### [facility], [facility]. [address] [place] [address] [address] [place] [address] Manual Differential if Indic atedon 09-27-2020 Anisocytosis Ql (Bld) SLIGHT Normal [facility] Comment on above: Order Comment: Items in this order include: Culture, Urine Testing Performed By: [facility] [address] [place] [address] Dr. Donnie Jean, Rn Referral Performed By: #### C 734 #### [facility] [address] [place] [address] Hellier Cells SLIGHT Normal [facility] Comment on above: Order Comment: Items in this order include: Culture, Urine Testing Performed By: [facility] [address] [place] [address] Dr. Donnie Jean, Rn Referral Performed By: #### C 734 #### [facility] [address] [place] [address] Lymphocytes 2 % Low 20-51 [facility] Comment on above: Order Comment: Items in this order include: Culture, Urine Testing Performed By: [facility] [address] [place] [address] Dr. Donnie Jean, Rn Referral Performed By: #### C 734 #### [facility] [address] [place] [address] Macrocytes Ql (Bld) SLIGHT Normal [facility] Comment on above: Order Comment: Items in this order include: Culture, Urine Testing Performed By: [facility] [address] [place] [address] Dr. Donnie Jean, Rn Referral Performed By: #### C 734 #### [facility] [address] [place] [address] Metamyelocytes 1 % Normal <2 [facility] Comment on above: Order Comment: Items in this order include: Culture, Urine Testing Performed By: [facility] [place] [address] Dr. Donnie Jean, Rn Referral Performed By: #### C 734 #### [facility] [address] [place] [address] Monocytes 2 % Normal 2-9 [facility] Comment on above: Order Comment: Items in this order include: Culture, Urine Testing Performed By: [facility] [address] [place] [address] Dr. Donnie Jean, Rn Referral Performed By: #### C 734 #### [facility] [address] [place] [address] Neutrophils 95 % High 42-75 [facility] Comment on above: Order Comment: Items in this order include: Culture, Urine Testing Performed By: [facility] [address] [place] [address] Dr. Donnie Jean, Rn Referral Performed By: #### C 734 #### [facility] [address] [place] [address] Ovalocytes SLIGHT Normal [facility] Comment on above: Order Comment: Items in this order include: Culture, Urine Testing Performed By: [facility] [address] [place] [address] Dr. Donnie Jean, Rn Referral Performed By: #### C 734 #### [facility] [address] [place] [address] Poikilocytosis MODERATE Normal [facility] Comment on above: Order Comment: Items in this order include: Culture, Urine Testing Performed By: [facility] [address] [place] [address] Dr. Donnie Jean, Rn Referral Performed By: #### C 734 #### [facility] [address] [place] [address] Polychromasia SLIGHT Normal [facility] Comment on above: Order Comment: Items in this order include: Culture, Urine Testing Performed By: [facility] [address] [place] [address] Dr. Donnie Jean, Rn Referral Performed By: #### C 734 #### [facility] [address] [place] [address] [address] [place] [address] Target Cells SLIGHT Normal [facility] Comment on above: Order Comment: Items in this order include: Culture, Urine Testing Performed By: [facility] [facility] [address] [place] [address]. [place] [id number] Dr. Donnie Jean, Rn Referral Performed By: #### C 734 #### [facility] [address] [place] [address] [address] [place] [address] Slide Scan, Microscopeon Platelets (Bld) [#/Vol] RESULTS MAY BE INACCURATE DUE TO PLATELET CLUMPING; SUGGEST REDRAW PLT COUNT IN BLUE-TOP (CITRATED TUBE). ALL OTHER CBC PARAMETERS ARE UNAFFECTED BY THIS IN VITRO PHENOMENON. Normal [facility] Comment on above: Order Comment: Items in this order include: Culture, Urine Testing Performed By: [facility] [address] [place], [place] [id number] Dr. Donnie Jean, Rn Referral Performed By: #### C 734 #### [facility] [address] [place] [address] [address] [place] [id number] TSH w/ reflex to FT4on 09-27 TSH Qn 4.30 MIU/mL Normal 0.50-6.00 [facility] Comment on above: Order Comment: Items in this order include: Culture, Urine Testing Performed By: [facility] [address] [place] [address]. [place] [address] Dr. Donnie Jean, Rn Referral Performed By: #### C 734 #### [facility] [address] [place] [address] [address] [place] [address] CBC with differentialon Erythrocyte distribution width (RBC) [Ratio] 15.4 % Normal 11.5-15.5 [facility] Comment on above: Order Comment: Items in this order include: Comprehensive Metabolic Panel, Lipid Panel, Uric Acid , Vit D 25 [place] (Total), CBC with differential, HgbA1C, , , , Slide Scan if Indicated, Manual Differential if IndicatedTesting Performed By: [facility] [address] [place] [address] Donnie Jean, Rn Referral Performed By: #### C 709 #### [facility]. [address] [place] [address] [address] [place] [address] Hematocrit (Bld) [Volume fraction] 37.9 % Normal 37.0-47.0 [facility] Comment on above: Order Comment: Items in this order include: Comprehensive Metabolic Panel, Lipid Panel, Uric Acid , Vit D 25 [place] (Total), CBC with differential, HgbA1C, , , , Slide Scan if Indicated, Manual Differential if IndicatedTesting Performed By: [facility] [address] [place] [address] Donnie Jean, Rn Referral Performed By: #### C 709 #### [facility], [facility]. [address] [place] [address] [address] [place] [address] Hemoglobin (Bld) [Mass/Vol] 12.1 g/dL Normal 11.5-15.5 [facility] Comment on above: Order Comment: Items in this order include: Comprehensive Metabolic Panel, Lipid Panel, Uric Acid , Vit D 25 [place] (Total), CBC with differential, HgbA1C, , , , Slide Scan if Indicated, Manual Differential if IndicatedTesting Performed By: [facility] [address] [place] [address] Donnie Jean, Rn Referral Performed By: #### C 709 #### [facility], [facility]. [address] [place] [address] [address] [place] [address] MCH (RBC) [Entitic mass] 35.7 pg High 27.0-31.0 [facility] Comment on above: Order Comment: Items in this order include: Comprehensive Metabolic Panel, Lipid Panel, Uric Acid , Vit D 25 [place] (Total), CBC with differential, HgbA1C, , , , Slide Scan if Indicated, Manual Differential if IndicatedTesting Performed By: [facility] [address] [place] [address] [place] [address] [address] Donnie Jean, Rn Referral Performed By: #### C 709 #### [facility] [address] [place] [address] [address] [place] [address] MCHC (RBC) [Mass/Vol] 31.9 g/dL Low 32.0-36.0 [facility] Comment on above: Order Comment: Items in this order include: Comprehensive Metabolic Panel, Lipid Panel, Uric Acid , Vit D 25 [place] (Total), CBC with differential, HgbA1C, , , , Slide Scan if Indicated, Manual Differential if IndicatedTesting Performed By: [facility] [address] [place] [address] Donnie Jean, Rn Referral Performed By: #### C 709 #### [facility] [address] [place] [address] [address] [place] [address] MCV (RBC) [Entitic vol] 111.8 fL High 78.0-100.0 [facility] Comment on above: Order Comment: Items in this order include: Comprehensive Metabolic Panel, Lipid Panel, Uric Acid , Vit D 25 [place] (Total), CBC with differential, HgbA1C, , , , Slide Scan if Indicated, Manual Differential if IndicatedTesting Performed By: [facility] [address] [place] [address] Donnie Jean, Rn Referral Performed By: #### C 709 #### [facility] [address] [place] [address] [address] [place] [address] Platelet mean volume (Bld) [Entitic vol] 10.5 fL Normal 8.9-12.6 [facility] Comment on above: Order Comment: Items in this order include: Comprehensive Metabolic Panel, Lipid Panel, Uric Acid , Vit D 25 [place] (Total), CBC with differential, HgbA1C, , , , Slide Scan if Indicated, Manual Differential if IndicatedTesting Performed By: [facility] [address] [place] [address] Donnie Jean, Rn Referral Performed By: #### C 709 #### [facility] [address] [place] [address] Platelets (Bld) [#/Vol] 356 K CUMM Normal 130-400 [facility] Comment on above: Order Comment: Items in this order include: Comprehensive Metabolic Panel, Lipid Panel, Uric Acid , Vit D 25 [place] (Total), CBC with differential, HgbA1C, , , , Slide Scan if Indicated, Manual Differential if IndicatedTesting Performed By: [facility] [address] [place] [address]. [place] [address] Dr. Donnie Jean, Rn Referral Performed By: #### C 709 #### [facility], [facility]. [address] [place] [address] [address] [place] [address] RBC (Bld) [#/Vol] 3.39 M CUMM Low 3.80-5.10 [facility] Comment on above: Order Comment: Items in this order include: Comprehensive Metabolic Panel, Lipid Panel, Uric Acid , Vit D 25 [place] (Total), CBC with differential, HgbA1C, , , , Slide Scan if Indicated, Manual Differential if IndicatedTesting Performed By: [facility] [address] [place] [address]. [place] [address] Dr. Donnie Jean, Rn Referral Performed By: #### Jany 709 #### [facility] [address] [place] [address] [address] [place] [address] WBC (Bld) [#/Vol] 18.3 K CUMM High 3.8-10.6 [facility] Comment on above: Order Comment: Items in this order include: Comprehensive Metabolic Panel, Lipid Panel, Uric Acid , Vit D 25 [place] (Total), CBC with differential, HgbA1C, , , , Slide Scan if Indicated, Manual Differential if IndicatedTesting Performed By: [facility] [address] [place] [address]. [place] [address] Dr. Donnie Jean, Rn Referral Performed By: #### C 709 #### [facility] [address] [place] [address] Comprehensive Metabolic Pane donnie 06-21-2020 Albumin [Mass/Vol] 4.4 g/dL Normal 3.5-5.0 [facility] Comment on above: Order Comment: Items in this order include: Comprehensive Metabolic Panel, Lipid Panel, Uric Acid , Vit D 25 [place] (Total), CBC with differential, HgbA1C, , , , Slide Scan if Indicated, Manual Differential if IndicatedTesting Performed By: [facility] [address] [place] [address] Dr. Donnie Jena, Lab DirectorItems in this order include: Comprehensive Metabolic Panel, Lipid Panel, Uric Acid , Vit D 25 [place] (Total), CBC with differential, HgbA1C, , , , Manual Differential if Indicated Performed By: #### C 709 #### [facility], [facility]. [address] [place] [address] [address] [place] [id number] Alk Phos 66 U/L Normal 23-159 [facility] Comment on above: Order Comment: Items in this order include: Comprehensive Metabolic Panel, Lipid Panel, Uric Acid , Vit D 25 [place] (Total), CBC with differential, HgbA1C, , , , Slide Scan if Indicated, Manual Differential if IndicatedTesting Performed By: [facility] [address] [place] [address] Donnie Jean, Lab DirectorItems in this order include: Comprehensive Metabolic Panel, Lipid Panel, Uric Acid , Vit D 25 [place] (Total), CBC with differential, HgbA1C, , , , Manual Differential if Indicated Performed By: #### C 709 #### [facility] [address] [place] [address] [address] [place] [address] ALT [Catalytic activity/Vol] 9 U/L Normal 0-38 [facility] Comment on above: Order Comment: Items in this order include: Comprehensive Metabolic Panel, Lipid Panel, Uric Acid , Vit D 25 [place] (Total), CBC with differential, HgbA1C, , , , Slide Scan if Indicated, Manual Differential if IndicatedTesting Performed By: [facility] [address] [place] [address] Donnie Jean, Lab DirectorItems in this order include: Comprehensive Metabolic Panel, Lipid Panel, Uric Acid , Vit D 25 [place] (Total), CBC with differential, HgbA1C, , , , Manual Differential if Indicated Performed By: #### C 709 #### [facility], [facility]. [address] [place] [address] [address] [place] [address] AST [Catalytic activity/Vol] 17 U/L Normal 11-43 [facility] Comment on above: Order Comment: Items in this order include: Comprehensive Metabolic Panel, Lipid Panel, Uric Acid , Vit D 25 [place] (Total), CBC with differential, HgbA1C, , , , Slide Scan if Indicated, Manual Differential if IndicatedTesting Performed By: [facility] [address] [place] [address]. [place] [address] Dr. Donnie Jean, Lab DirectorItems in this order include: Comprehensive Metabolic Panel, Lipid Panel, Uric Acid , Vit D 25 [place] (Total), CBC with differential, HgbA1C, , , , Manual Differential if Indicated Performed By: #### C 709 #### [facility], [facility]. [address] [place] [address] [address] [place] [address] Bilirubin [Mass/Vol] 0.3 mg/dL Normal 0.2-1.3 [facility] Comment on above: Order Comment: Items in this order include: Comprehensive Metabolic Panel, Lipid Panel, Uric Acid , Vit D 25 [place] (Total), CBC with differential, HgbA1C, , , , Slide Scan if Indicated, Manual Differential if IndicatedTesting Performed By: [facility] [address] [place] [address]. [place] [address] Dr. Donnie Jean, Lab DirectorItems in this order include: Comprehensive Metabolic Panel, Lipid Panel, Uric Acid , Vit D 25 [place] (Total), CBC with differential, HgbA1C, , , , Manual Differential if Indicated Performed By: #### C 709 #### [facility], [facility]. [address] [place] [address] [address] [place] [address] Calcium [Mass/Vol] 10.1 mg/dL Normal 8.5-10.5 [facility] Comment on above: Order Comment: Items in this order include: Comprehensive Metabolic Panel, Lipid Panel, Uric Acid , Vit D 25 [place] (Total), CBC with differential, HgbA1C, , , , Slide Scan if Indicated, Manual Differential if IndicatedTesting Performed By: [facility] [address] [place] [address]. [place] [address] Dr. Donnie Jean, Lab DirectorItems in this order include: Comprehensive Metabolic Panel, Lipid Panel, Uric Acid , Vit D 25 [place] (Total), CBC with differential, HgbA1C, , , , Manual Differential if Indicated Performed By: #### C 709 #### [facility] [address] [place] [address] [address] [place] [address] Chloride [Moles/Vol] 106 mmol/L Normal 98-107 [facility] Comment on above: Order Comment: Items in this order include: Comprehensive Metabolic Panel, Lipid Panel, Uric Acid , Vit D 25 [place] (Total), CBC with differential, HgbA1C, , , , Slide Scan if Indicated, Manual Differential if IndicatedTesting Performed By: [facility] [address] [place] [address] Dr. Donnie Jean, Lab DirectorItems in this order include: Comprehensive Metabolic Panel, Lipid Panel, Uric Acid , Vit D 25 [place] (Total), CBC with differential, HgbA1C, , , , Manual Differential if Indicated Performed By: #### C 709 #### [facility] [address] [place] [address] [place] [address] CO2 [Moles/Vol] 17.0 mmol/L Low 21.0-32.0 [facility] Comment on above: Order Comment: Items in this order include: Comprehensive Metabolic Panel, Lipid Panel, Uric Acid , Vit D 25 [place] (Total), CBC with differential, HgbA1C, , , , Slide Scan if Indicated, Manual Differential if IndicatedTesting Performed By: [facility] [address] [place] [address]. [place] [address] Dr. Donnie Jean, Lab DirectorItems in this order include: Comprehensive Metabolic Panel, Lipid Panel, Uric Acid , Vit D 25 [place] (Total), CBC with differential, HgbA1C, , , , Manual Differential if Indicated Performed By: #### C 709 #### [facility] [address] [place] [address] [place] [address] Creatinine [Mass/Vol] 1.5 mg/dL High 0.1-1.2 [facility] Comment on above: Order Comment: Items in this order include: Comprehensive Metabolic Panel, Lipid Panel, Uric Acid , Vit D 25 [place] (Total), CBC with differential, HgbA1C, , , , Slide Scan if Indicated, Manual Differential if IndicatedTesting Performed By: [facility] [address] [place] [address] Donnie Jean, Lab DirectorItems in this order include: Comprehensive Metabolic Panel, Lipid Panel, Uric Acid , Vit D 25 [place] (Total), CBC with differential, HgbA1C, , , , Manual Differential if Indicated Performed By: #### C 709 #### [facility], [facility]. [address] [place] [address] [address] [place] [address] GFR/1.73 sq M.predicted MDRD (S/P/Bld) [Vol rate/Area] 33 mL/min per 1.73 Low >60 [facility] Comment on above: Order Comment: Items in this order include: Comprehensive Metabolic Panel, Lipid Panel, Uric Acid , Vit D 25 [place] (Total), CBC with differential, HgbA1C, , , , Slide Scan if Indicated, Manual Differential if IndicatedTesting Performed By: [facility] [address] [place] [address] [address] Donnie Jean, Lab DirectorItems in this order include: Comprehensive Metabolic Panel, Lipid Panel, Uric Acid , Vit D 25 [place] (Total), CBC with differential, HgbA1C, , , , Manual Differential if Indicated Result Comment: The GFR estimate is not adjusted for race. If the patient's race is -[place], the GFR estimate must be multiplied by a factor of 1.21. Performed By: #### C 709 #### [facility], [facility]. [address] [place] [address] [place] [address] Glucose [Mass/Vol] 108 mg/dL High 74-100 [facility] Comment on above: Order Comment: Items in this order include: Comprehensive Metabolic Panel, Lipid Panel, Uric Acid , Vit D 25 [place] (Total), CBC with differential, HgbA1C, , , , Slide Scan if Indicated, Manual Differential if IndicatedTesting Performed By: [facility] [address] [place] [address] Donnie eJan, Lab DirectorItems in this order include: Comprehensive Metabolic Panel, Lipid Panel, Uric Acid , Vit D 25 [place] (Total), CBC with differential, HgbA1C, , , , Manual Differential if Indicated Performed By: #### C 709 #### [facility] [address] [place] [address] [address] [place] [address] Potassium [Moles/Vol] 4.7 mmol/L Normal 3.5-5.3 [facility] Comment on above: Order Comment: Items in this order include: Comprehensive Metabolic Panel, Lipid Panel, Uric Acid , Vit D 25 [place] (Total), CBC with differential, HgbA1C, , , , Slide Scan if Indicated, Manual Differential if IndicatedTesting Performed By: [facility] [address] [place] [address] Donnie Jean, Lab DirectorItems in this order include: Comprehensive Metabolic Panel, Lipid Panel, Uric Acid , Vit D 25 [place] (Total), CBC with differential, HgbA1C, , , , Manual Differential if Indicated Performed By: #### C 709 #### [facility], [address] [place] [address] Protein [Mass/Vol] 7.4 g/dL Normal 6.3-8.4 [facility] Comment on above: Order Comment: Items in this order include: Comprehensive Metabolic Panel, Lipid Panel, Uric Acid , Vit D 25 [place] (Total), CBC with differential, HgbA1C, , , , Slide Scan if Indicated, Manual Differential if IndicatedTesting Performed By: [facility] [address] [place] [address] Donnie Jean, Lab DirectorItems in this order include: Comprehensive Metabolic Panel, Lipid Panel, Uric Acid , Vit D 25 [place] (Total), CBC with differential, HgbA1C, , , , Manual Differential if Indicated Performed By: #### C 709 #### [facility] [address] [facility] [address] [place] [address] Sodium [Moles/Vol] 139 mmol/L Normal 135-145 [facility] Comment on above: Order Comment: Items in this order include: Comprehensive Metabolic Panel, Lipid Panel, Uric Acid , Vit D 25 [place] (Total), CBC with differential, HgbA1C, , , , Slide Scan if Indicated, Manual Differential if IndicatedTesting Performed By: [facility] [address] [place] [address]. [place] [address] Dr. Donnie Jean, Lab DirectorItems in this order include: Comprehensive Metabolic Panel, Lipid Panel, Uric Acid , Vit D 25 [place] (Total), CBC with differential, HgbA1C, , , , Manual Differential if Indicated Performed By: #### C 709 #### [facility], [facility]. [address] [place] [address] [address] [place] [address] Urea nitrogen [Mass/Vol] 36 mg/dL High 6-22 [facility] Comment on above: Order Comment: Items in this order include: Comprehensive Metabolic Panel, Lipid Panel, Uric Acid , Vit D 25 [place] (Total), CBC with differential, HgbA1C, , , , Slide Scan if Indicated, Manual Differential if IndicatedTesting Performed By: [facility] [address] [place] [address]. [place] [address] Dr. Donnie Jean, Lab DirectorItems in this order include: Comprehensive Metabolic Panel, Lipid Panel, Uric Acid , Vit D 25 [place] (Total), CBC with differential, HgbA1C, , , , Manual Differential if Indicated Performed By: #### C 709 #### [facility] [address] [place] [address] [address] [place] [address] [id number] 06-21-2020 HbA1c (Bld) [Mass fraction] 6.3 % High <5.7 [facility] Comment on above: Order Comment: Items in this order include: Comprehensive Metabolic Panel, Lipid Panel, Uric Acid , Vit D 25 [place] (Total), CBC with differential, HgbA1C, , , , Slide Scan if Indicated, Manual Differential if IndicatedTesting Performed By: [facility] [address] [place] [address]. [place] [address] Dr. Donnie Jean, Lab DirectorItems in this order include: Comprehensive Metabolic Panel, Lipid Panel, Uric Acid , Vit D 25 [place] (Total), CBC with differential, HgbA1C, , , , Manual Differential if Indicated Result Comment: Refe rence Interval: Normal: below 5.7%. Prediabetes: 5.7% to 6.4%. Diabetes: 6.5% or above. Performed By: #### C 709 #### [facility] [address] [facility] [address] [place] [address] Lipid Panelon 06-21-2020 Cholesterol [Mass/Vol] 124 mg/dL Normal <200 [facility] Comment on above: Performed By: #### C 709 #### [facility] [address] [place] [address] [place] [address] Cholesterol in HDL [Mass/Vol] 34 mg/dL Low >50 [facility] Comment on above: Performed By: #### C 709 #### [facility] [address] [facility] [place] [address] Cholesterol in LDL [Mass/Vol] 49 mg/dL Normal <130 [facility] Comment on above: Performed By: #### C 709 #### [facility] [address] [facility] [place] [address] Cholesterol.total/C holesterol in HDL [Mass ratio] 3.6 {ratio} Normal <4.0 [facility] Comment on above: Performed By: #### C 709 #### [facility] [address] [facility] [address] [place] [address] Non-HDL Chol 90 Normal LDL Goal + 30 [facility] Comment on above: Result Comment: LDL and Non-HDL goal dependent upon individual risk Performed By: #### C 709 #### [facility] [address] [facility] [address] [place] [address] Triglyceride [Mass/Vol] 206 mg/dL High <150 [facility] Comment on above: Performed By: #### C 709 #### [facility] [address] [place] [address] [address] [place] [address] VLDL-Calc 41 mg/dl High <30 [facility] Comment on above: Performed By: #### C 709 #### [facility] [address] [place] [address] [address] [place] [address] Manual Differential if Indic atedon 06-21-2020 Anisocytosis Ql (Bld) MODERATE Normal [facility] Comment on above: Order Comment: Items in this order include: Comprehensive Metabolic Panel, Lipid Panel, Uric Acid , Vit D 25 [place] (Total), CBC with differential, HgbA1C, , , , Slide Scan if Indicated, Manual Differential if IndicatedTesting Performed By: [facility] [address] [place] [address]. [place] [address] Dr. Donnie Jean, Lab DirectorItems in this order include: Comprehensive Metabolic Panel, Lipid Panel, Uric Acid , Vit D 25 [place] (Total), CBC with differential, HgbA1C, , , , Manual Differential if IndicatedReceived comment: User comments: Slide comments: Performed By: #### C 709 #### [facility] [address] [place] [address] [address] [place] [address] Basophils 1 % Normal [facility] Comment on above: Order Comment: Items in this order include: Comprehensive Metabolic Panel, Lipid Panel, Uric Acid , Vit D 25 [place] (Total), CBC with differential, HgbA1C, , , , Slide Scan if Indicated, Manual Differential if IndicatedTesting Performed By: [facility] [address] [place] [address]. [place] [address] Dr. Donnie Jean, Lab DirectorItems in this order include: Comprehensive Metabolic Panel, Lipid Panel, Uric Acid , Vit D 25 [place] (Total), CBC with differential, HgbA1C, , , , Manual Differential if IndicatedReceived comment: User comments: Slide comments: Performed By: #### C 709 #### [facility] [address] [place] [address] [address] [place] [address] Lymphocytes 7 % Low 20-51 [facility] Comment on above: Order Comment: Items in this order include: Comprehensive Metabolic Panel, Lipid Panel, Uric Acid , Vit D 25 [place] (Total), CBC with differential, HgbA1C, , , , Slide Scan if Indicated, Manual Differential if IndicatedTesting Performed By: [facility] [address] [place] [address] Dr. Donnie Jean, Lab DirectorItems in this order include: Comprehensive Metabolic Panel, Lipid Panel, Uric Acid , Vit D 25 [place] (Total), CBC with differential, HgbA1C, , , , Manual Differential if IndicatedReceived comment: User comments: Slide comments: Performed By: #### C 709 #### [facility] [address] [place] [address] [address] [place] [address] Macrocytes Ql (Bld) SLIGHT Normal [facility] Comment on above: Order Comment: Items in this order include: Comprehensive Metabolic Panel, Lipid Panel, Uric Acid , Vit D 25 [place] (Total), CBC with differential, HgbA1C, , , , Slide Scan if Indicated, Manual Differential if IndicatedTesting Performed By: [facility] [address] [place] [address] Dr. Donnie Jean, Lab DirectorItems in this order include: Comprehensive Metabolic Panel, Lipid Panel, Uric Acid , Vit D 25 [place] (Total), CBC with differential, HgbA1C, , , , Manual Differential if IndicatedReceived comment: User comments: Slide comments: Performed By: #### C 709 #### [facility] [address] [place] [address] [address] [place] [address] Metamyelocytes 3 % High <2 [facility] Comment on above: Order Comment: Items in this order include: Comprehensive Metabolic Panel, Lipid Panel, Uric Acid , Vit D 25 [place] (Total), CBC with differential, HgbA1C, , , , Slide Scan if Indicated, Manual Differential if IndicatedTesting Performed By: [facility] [address] [place] [address] Donnie Jean, Lab DirectorItems in this order include: Comprehensive Metabolic Panel, Lipid Panel, Uric Acid , Vit D 25 OH (Total), CBC with differential, HgbA1C, , , , Manual Differential if IndicatedReceived comment: User comments: Slide comments: Performed By: #### C 709 #### [facility] [address] [place] [address] [address] [place] [address] Microcytes SLIGHT Normal SLIGHT [facility] Comment on above: Order Comment: Items in this order include: Comprehensive Metabolic Panel, Lipid Panel, Uric Acid , Vit D 25 OH (Total), CBC with differential, HgbA1C, , , , Slide Scan if Indicated, Manual Differential if IndicatedTesting Performed By: [facility] [address] [place] [address]. [place] [address] Dr. Donnie Jean, Lab DirectorItems in this order include: Comprehensive Metabolic Panel, Lipid Panel, Uric Acid , Vit D 25 OH (Total), CBC with differential, HgbA1C, , , , Manual Differential if IndicatedReceived comment: User comments: Slide comments: Performed By: #### C 709 #### [facility] [address] [place] [address] [place] [address] Neutrophils 89 % High 42-75 [facility] Comment on above: Order Comment: Items in this order include: Comprehensive Metabolic Panel, Lipid Panel, Uric Acid , Vit D 25 OH (Total), CBC with differential, HgbA1C, , , , Slide Scan if Indicated, Manual Differential if IndicatedTesting Performed By: [facility] [address] [place] [address]. [place] [address] Dr. Donnie Jean, Lab DirectorItems in this order include: Comprehensive Metabolic Panel, Lipid Panel, Uric Acid , Vit D 25 OH (Total), CBC with differential, HgbA1C, , , , Manual Differential if IndicatedReceived comment: User comments: Slide comments: Performed By: #### C 709 #### [facility] [address] [place] [address] [address] [place] [address] Polychromasia SLIGHT Normal [facility] Comment on above: Order Comment: Items in this order include: Comprehensive Metabolic Panel, Lipid Panel, Uric Acid , Vit D 25 [place] (Total), CBC with differential, HgbA1C, , , , Slide Scan if Indicated, Manual Differential if IndicatedTesting Performed By: [facility] [address] [place] [address] Donnie Jean, Lab DirectorItems in this order include: Comprehensive Metabolic Panel, Lipid Panel, Uric Acid , Vit D 25 OH (Total), CBC with differential, HgbA1C, , , , Manual Differential if IndicatedReceived comment: User comments: Slide comments: Performed By: #### C 709 #### [facility] [address] [place] [address] [place] [address] Uric Acidon 06-21-2020 Urate [Mass/Vol] 9.0 mg/dL High 2.5-6.2 [facility] Comment on above: Performed By: #### C 709 #### [facility] [address] [place] [address] [place] [address] Vit D 25 OH (Total)on 2019 Vit D 25 OH (Total) 36.9 ng/ml Normal 31.0-100.0 [facility] Comment on above: Order Comment: Items in this order include: Comprehensive Metabolic Panel, Lipid Panel, Uric Acid , Vit D 25 OH (Total), CBC with differential, HgbA1C, , , , Slide Scan if Indicated, Manual Differential if IndicatedTesting Performed By: [facility] [address] [place] [address] Donnie Jean, Lab DirectorItems in this order include: Comprehensive Metabolic Panel, Lipid Panel, Uric Acid , Vit D 25 [place] (Total), CBC with differential, HgbA1C, , , , Manual Differential if Indicated Result Comment: Defi ciency <10 ng/ml Insufficiency 10-30 ng/ml Sufficiency 31-100 ng/ml Toxicity >100 ng/ml Performed By: #### C 709 #### [facility] [address] [place] [address] [place] [address] MA Mammo Digital Diag RT w t virgilio (NB)on 02-03-2020 MA Mammo Digital Diag RT w mark (NB) EXAMINATION TYPE: MA Mammo Digital Diag RT w mrak (NB) DATE OF EXAM : 02/03/2020 2:19 PM Digital Breast Tomosynthesis Diagnostic Mammogram with Computer Aided Detection PATIENT HISTORY: Menarche at age 14. First Full-Term at age 20. Postmenopausal. Breast cancer, left, age 76. Breast cancer, left, age 76. Previous chest radiation therapy. Currently using Tamoxifen, beginning at age 76 for 3 years. 11/16/2016, Malignant MA US Bx Breast Perc 1st Lesion LT on the left side. 11/05/2017, Benign MA Stereo Bx Breast Perc 1st Lesion LT on the left side. 1986, Benign Excisional Biopsy on the left side. 12/17/2016, Malignant Lumpectomy on the left side. PRIOR STUDIES: 11/01/2016, 10/21/2017, 04/24/2018, 01/28/2019, 02/01/2020 REASON FOR STUDY: Breast Asymmetry. TECHNIQUE: Multiple low dose images were obtained in each projection. These low-dose images were reconstructed into 1 mm thick slices and reviewed on the soft copy workstation along with additional reconstructed standard digital bilateral mammogram images. Computer-aided detection utilizing R2CAD reader has been performed. BREAST COMPOSITION: There are scattered areas of fibroglandular density FINDINGS: The asymmetry mid subareolar region right breast on MLO view recent screening mammogram is consistent with superimposition of breast tissues. There is no suspicious abnormality within the right breast which is not significantly changed. IMPRESSION: No mammographic evidence of breast malignancy BI-RADS Code: 1-Negative RECOMMENDATION: 1. Screening Mammogram in 1 year COMMENTS: Results of the exam were discussed with the patient and will be immediately mailed to the patient. [place] thanks you for the opportunity to care for your patient. Workstation ID: [id number] - [id number] FINAL REPORT Dictated By: Jazlyn Stuart MD 02/03/2020 14:27 Assigned Physician: Jazlyn Staurt MD Reviewed and Electronically Signed By: Jazlyn Stuart MD 02/03/2020 14:28 Transcribed by: OSKAR 02/03/2020 14:27 Technologist: PRINCE Cam [facility] Mammo Digital Screen bila t w mark(NB)on 02-01-2020 MA Mammo Digital Screen bilat w mark(NB) EXAMINATION TYPE: MA Mammo Digital Screen bilat w mark(NB) DATE OF EXAM : 02/01/2020 1:10 PM Digital Breast Tomosynthesis Screening Mammogram with Computer Aided Detection PATIENT HISTORY: Menarche at age 14. First Full-Term at age 20. Postmenopausal. Breast cancer, left, age 76. Breast cancer, left, age 76. Previous chest radiation therapy. Currently using Tamoxifen, beginning at age 76 for 2 years. 11/16/2016, Malignant MA US Bx Breast Perc 1st Lesion LT on the left side. 11/05/2017, Benign MA Stereo Bx Breast Perc 1st Lesion LT on the left side. 1987, Benign Excisional Biopsy on the left side. 12/17/2016, Malignant Lumpectomy on the left side. PRIOR STUDIES: 05/15/2016, 11/01/2016, 10/21/2017, 04/24/2018, 01/28/2019 REASON FOR STUDY: Breast Screening. TECHNIQUE: Multiple low dose images were obtained in each projection. These low-dose images were reconstructed into 1 mm thick slices and reviewed on the soft copy workstation along with additional reconstructed standard digital bilateral mammogram images. Computer-aided detection utilizing Thubrikar Aortic ValveCAD reader has been performed. BREAST COMPOSITION: There are scattered areas of fibroglandular density FINDINGS: An irregular shaped 8mm asymmetry is present mid subareolar region right breast on MLO view new since prior studies. Left postlumpectomy changes are present. There is no suspicious abnormality within the left breast. IMPRESSION: New asymmetry subareolar region right breast RECOMMENDATION: Diagnostic Tomosynthesis Right Diagnostic Ultrasound Right BI-RADS Code: 0-Needs Additional Imaging Evaluation The findings and recommendations will be called directly to the patient prior department staff who will schedule the diagnostic evaluation. Additionally, the results of the examination will be immediately mailed to the patient. [place] thanks you for the opportunity to care for your patient. Workstation ID: [id number] - [id number] FINAL REPORT Dictated By: Jazlyn Stuart MD 02/01/2020 14:28 Assigned Physician: Jazlyn Stuart MD Reviewed and Electronically Signed By: Jazlyn Stuart MD 02/01/2020 14:29 Transcribed by: OSKAR 02/01/2020 14:28 Technologist: JEROME Cam [facility] CBC with differentialon Erythrocyte distribution width (RBC) [Ratio] 14.7 % Normal 11.5-15.5 [facility] Comment on above: Order Comment: Items in this order include: Cholesterol, Comprehensive Metabolic Panel, Direct LDL , HDL, Uric Acid , CBC with differential, HgbA1C, , , Slide Scan if Indicated, Manual Differential if Indicated Testing Performed By: [facility] [address] [place] [address]. [place] [address] Dr. Donnie Jean, Rn Referral Items in this order include: Cholesterol, Comprehensive Metabolic Panel, Direct LDL , HDL, Uric Acid , CBC with differential, HgbA1C, , , Slide Scan if Indicated, Manual Differential if Indicated Testing Performed By: [facility] [address] [place] [address]. [place] [address] Dr. Donnie Jean, Rn Referral Items in this order include: Cholesterol, Comprehensive Metabolic Panel, Direct LDL , HDL, Uric Acid , CBC with differential, HgbA1C, , , Slide Scan if Indicated, Manual Differential if Indicated Testing Performed By: [facility] [address] [place] [address] Dr. Donnie Jean, Rn Referral Performed By: #### C 120, C141, C116, C406, C4521, C118, C47, C4523, C215 #### [facility], [facility]. [address] [place] [address] [address] [place] [address] Hematocrit (Bld) [Volume fraction] 40.6 % Normal 37.0-47.0 [facility] Comment on above: Order Comment: Items in this order include: Cholesterol, Comprehensive Metabolic Panel, Direct LDL , HDL, Uric Acid , CBC with differential, HgbA1C, , , Slide Scan if Indicated, Manual Differential if Indicated Testing Performed By: [facility] [address] [place] [address]. [place] [address] Dr. Donnie Jean, Rn Referral Items in this order include: Cholesterol, Comprehensive Metabolic Panel, Direct LDL , HDL, Uric Acid , CBC with differential, HgbA1C, , , Slide Scan if Indicated, Manual Differential if Indicated Testing Performed By: [facility] [address] [place] [address]. [place] [address] Dr. Donnie Jean, Rn Referral Items in this order include: Cholesterol, Comprehensive Metabolic Panel, Direct LDL , HDL, Uric Acid , CBC with differential, HgbA1C, , , Slide Scan if Indicated, Manual Differential if Indicated Testing Performed By: [facility] [address] [place] [address]. [place] [address] Dr. Donnie Jean, Rn Referral Performed By: #### C 120, C141, C116, C406, C4521, C118, C47, C4523, C215 #### [facility] [facility] [address] [place] [address] Hemoglobin (Bld) [Mass/Vol] 12.9 g/dL Normal 11.5-15.5 [facility] Comment on above: Order Comment: Items in this order include: Cholesterol, Comprehensive Metabolic Panel, Direct LDL , HDL, Uric Acid , CBC with differential, HgbA1C, , , Slide Scan if Indicated, Manual Differential if Indicated Testing Performed By: [facility] [address] [place] [address]. [place] [address] Dr. Donnie Jean, Rn Referral Items in this order include: Cholesterol, Comprehensive Metabolic Panel, Direct LDL , HDL, Uric Acid , CBC with differential, HgbA1C, , , Slide Scan if Indicated, Manual Differential if Indicated Testing Performed By: [facility] [address] [place] [address] Dr. Donnie Jean, Rn Referral Items in this order include: Cholesterol, Comprehensive Metabolic Panel, Direct LDL , HDL, Uric Acid , CBC with differential, HgbA1C, , , Slide Scan if Indicated, Manual Differential if Indicated Testing Performed By: [facility] [address] [place] [address]. [place] [address] Dr. Donnie Jean, Rn Referral Performed By: #### C 120, C141, C116, C406, C4521, C118, C47, C4523, C215 #### [facility] [address] [facility] [address] [place] [address] MCH (RBC) [Entitic mass] 35.1 pg High 27.0-31.0 [facility] Comment on above: Order Comment: Items in this order include: Cholesterol, Comprehensive Metabolic Panel, Direct LDL , HDL, Uric Acid , CBC with differential, HgbA1C, , , Slide Scan if Indicated, Manual Differential if Indicated Testing Performed By: [facility] [address] [place] [address]. [place] [address] Dr. Donnie Jean, Rn Referral Items in this order include: Cholesterol, Comprehensive Metabolic Panel, Direct LDL , HDL, Uric Acid , CBC with differential, HgbA1C, , , Slide Scan if Indicated, Manual Differential if Indicated Testing Performed By: [facility] [address] [place] [address]. [place] [address] Dr. Donnie Jean, Rn Referral Items in this order include: Cholesterol, Comprehensive Metabolic Panel, Direct LDL , HDL, Uric Acid , CBC with differential, HgbA1C, , , Slide Scan if Indicated, Manual Differential if Indicated Testing Performed By: [facility] [address] [place] [address]. [place] [address] Dr. Donnie Jean, Rn Referral Performed By: #### C 120, C141, C116, C406, C4521, C118, C47, C4523, C215 #### [facility] [address] [place] [address] [address] [place] [address] MCHC (RBC) [Mass/Vol] 31.8 g/dL Low 32.0-36.0 [facility] Comment on above: Order Comment: Items in this order include: Cholesterol, Comprehensive Metabolic Panel, Direct LDL , HDL, Uric Acid , CBC with differential, HgbA1C, , , Slide Scan if Indicated, Manual Differential if Indicated Testing Performed By: [facility] [address] [place], [place] [address] [place] [address] Dr. Donnie Jean, Rn Referral Items in this order include: Cholesterol, Comprehensive Metabolic Panel, Direct LDL , HDL, Uric Acid , CBC with differential, HgbA1C, , , Slide Scan if Indicated, Manual Differential if Indicated Testing Performed By: [facility] [address] [place], [place] [address] [place] [address] Dr. Donnie Jean, Rn Referral Items in this order include: Cholesterol, Comprehensive Metabolic Panel, Direct LDL , HDL, Uric Acid , CBC with differential, HgbA1C, , , Slide Scan if Indicated, Manual Differential if Indicated Testing Performed By: [facility] [address] [place], [place] [id number] Dr. Donnie Jean, Rn Referral Performed By: #### C 120, C141, C116, C406, C4521, C118, C47, C4523, C215 #### [facility] [address] [place] [address] [address] [place] [address] MCV (RBC) [Entitic vol] 110.6 fL High 78.0-100.0 [facility] Comment on above: Order Comment: Items in this order include: Cholesterol, Comprehensive Metabolic Panel, Direct LDL , HDL, Uric Acid , CBC with differential, HgbA1C, , , Slide Scan if Indicated, Manual Differential if Indicated Testing Performed By: [facility] [address] [place], [place] [id number] Dr. Donnie Jean, Rn Referral Items in this order include: Cholesterol, Comprehensive Metabolic Panel, Direct LDL , HDL, Uric Acid , CBC with differential, HgbA1C, , , Slide Scan if Indicated, Manual Differential if Indicated Testing Performed By: [facility] [address] [place] [address] [address] [address] Donnie Jean, Rn Referral Items in this order include: Cholesterol, Comprehensive Metabolic Panel, Direct LDL , HDL, Uric Acid , CBC with differential, HgbA1C, , , Slide Scan if Indicated, Manual Differential if Indicated Testing Performed By: [facility] [address] [place] [address] [address] [address] Donnie Jean, Rn Referral Performed By: #### C 120, C141, C116, C406, C4521, C118, C47, C4523, C215 #### [facility] [address] [facility] [address] [place] [address] Platelet mean volume (Bld) [Entitic vol] 10.6 fL Normal 8.9-12.6 [facility] Comment on above: Order Comment: Items in this order include: Cholesterol, Comprehensive Metabolic Panel, Direct LDL , HDL, Uric Acid , CBC with differential, HgbA1C, , , Slide Scan if Indicated, Manual Differential if Indicated Testing Performed By: [facility] [address] [place] [address] Dr. Donnie Jean, Rn Referral Items in this order include: Cholesterol, Comprehensive Metabolic Panel, Direct LDL , HDL, Uric Acid , CBC with differential, HgbA1C, , , Slide Scan if Indicated, Manual Differential if Indicated Testing Performed By: [facility] [address] [place] [address] Dr. Donnie Jean, Rn Referral Items in this order include: Cholesterol, Comprehensive Metabolic Panel, Direct LDL , HDL, Uric Acid , CBC with differential, HgbA1C, , , Slide Scan if Indicated, Manual Differential if Indicated Testing Performed By: [facility] [address] [place] [address] Dr. Donnie Jean, Rn Referral Performed By: #### C 120, C141, C116, C406, C4521, C118, C47, C4523, C215 #### [facility], [facility]. [address] [place] [address] [address] [place] [address] Platelets (Bld) [#/Vol] 302 K CUMM Normal 130-400 [facility] Comment on above: Order Comment: Items in this order include: Cholesterol, Comprehensive Metabolic Panel, Direct LDL , HDL, Uric Acid , CBC with differential, HgbA1C, , , Slide Scan if Indicated, Manual Differential if Indicated Testing Performed By: [facility] [address] [place] [address] Dr. Donnie Jean, Rn Referral Items in this order include: Cholesterol, Comprehensive Metabolic Panel, Direct LDL , HDL, Uric Acid , CBC with differential, HgbA1C, , , Slide Scan if Indicated, Manual Differential if Indicated Testing Performed By: [facility] [address] [place] [address] Dr. Donnie Jean, Rn Referral Items in this order include: Cholesterol, Comprehensive Metabolic Panel, Direct LDL , HDL, Uric Acid , CBC with differential, HgbA1C, , , Slide Scan if Indicated, Manual Differential if Indicated Testing Performed By: [facility] [address] [facility] [place] [address] Dr. Donnie Jean, Rn Referral Performed By: #### C 120, C141, C116, C406, C4521, C118, C47, C4523, C215 #### [facility] [address] [place] [address] RBC (Bld) [#/Vol] 3.67 M CUMM Low 3.80-5.10 [facility] Comment on above: Order Comment: Items in this order include: Cholesterol, Comprehensive Metabolic Panel, Direct LDL , HDL, Uric Acid , CBC with differential, HgbA1C, , , Slide Scan if Indicated, Manual Differential if Indicated Testing Performed By: [facility] [address] [place] [address]. [place] [id number] Dr. Donnie Jean, Rn Referral Items in this order include: Cholesterol, Comprehensive Metabolic Panel, Direct LDL , HDL, Uric Acid , CBC with differential, HgbA1C, , , Slide Scan if Indicated, Manual Differential if Indicated Testing Performed By: [facility] [facility] [place] [address] Dr. Donnie Jean, Rn Referral Items in this order include: Cholesterol, Comprehensive Metabolic Panel, Direct LDL , HDL, Uric Acid , CBC with differential, HgbA1C, , , Slide Scan if Indicated, Manual Differential if Indicated Testing Performed By: [facility] [facility] [place] [address] Dr. Donnie Jean, Rn Referral Performed By: #### C 120, C141, C116, C406, C4521, C118, C47, C4523, C215 #### [facility] [address] [place] [address] WBC (Bld) [#/Vol] 19.7 K CUMM High 3.8-10.6 [facility] Comment on above: Order Comment: Items in this order include: Cholesterol, Comprehensive Metabolic Panel, Direct LDL , HDL, Uric Acid , CBC with differential, HgbA1C, , , Slide Scan if Indicated, Manual Differential if Indicated Testing Performed By: [facility] [address] [place] [address]. [place] [id number] Dr. Donnie Jean, Rn Referral Items in this order include: Cholesterol, Comprehensive Metabolic Panel, Direct LDL , HDL, Uric Acid , CBC with differential, HgbA1C, , , Slide Scan if Indicated, Manual Differential if Indicated Testing Performed By: [facility] [address] [place] [address]. [place] [address] Dr. Donnie Jean, Rn Referral Items in this order include: Cholesterol, Comprehensive Metabolic Panel, Direct LDL , HDL, Uric Acid , CBC with differential, HgbA1C, , , Slide Scan if Indicated, Manual Differential if Indicated Testing Performed By: [facility] [address] [place] [address]. [place] [id number] Dr. Donnie Jean, Rn Referral Performed By: #### C 120, C141, C116, C406, C4521, C118, C47, C4523, C215 #### [facility] [address] [facility] [address] [place] [address] Cholesterolon 01-18-2020 Cholesterol [Mass/Vol] 112 mg/dL Normal <200 [facility] Comment on above: Order Comment: Items in this order include: Cholesterol, Comprehensive Metabolic Panel, Direct LDL , HDL, Uric Acid , CBC with differential, HgbA1C, , , Slide Scan if Indicated, Manual Differential if Indicated Testing Performed By: [facility] [address] [place] [address]. [place] [address] Dr. Donnie Jean, Rn Referral Performed By: #### C 120, C141, C116, C406, C4521, C118, C47, C4523, C215 #### [facility] [address] [facility] [address] [place] [address] Comprehensive Metabolic Pane donnie 01-18-2020 Albumin [Mass/Vol] 4.0 g/dL Normal 3.5-5.0 [facility] Comment on above: Performed By: #### C 120, C141, C116, C406, C4521, C118, C47, C4523, C215 #### [facility] [address] [place] [address] Alk Phos 74 U/L Normal 23-159 [facility] Comment on above: Performed By: #### C 120, C141, C116, C406, C4521, C118, C47, C4523, C215 #### [facility] [address] [place] [address] ALT [Catalytic activity/Vol] 18 U/L Normal 0-38 [facility] Comment on above: Performed By: #### C 120, C141, C116, C406, C4521, C118, C47, C4523, C215 #### [facility] [address] [place] [address] AST [Catalytic activity/Vol] 22 U/L Normal 11-43 [facility] Comment on above: Performed By: #### C 120, C141, C116, C406, C4521, C118, C47, C4523, C215 #### [facility] [address] [facility] [address] [place] [address] Bilirubin [Mass/Vol] 0.6 mg/dL Normal 0.2-1.3 [facility] Comment on above: Performed By: #### C 120, C141, C116, C406, C4521, C118, C47, C4523, C215 #### [facility] [address] [place] [address] Calcium [Mass/Vol] 9.2 mg/dL Normal 8.5-10.5 [facility] Comment on above: Performed By: #### C 120, C141, C116, C406, C4521, C118, C47, C4523, C215 #### [facility] [address] [place] [address] Chloride [Moles/Vol] 101 mmol/L Normal 98-107 [facility] Comment on above: Performed By: #### C 120, C141, C116, C406, C4521, C118, C47, C4523, C215 #### [facility] [address] [place] [address] CO2 [Moles/Vol] 22.0 mmol/L Normal 21.0-32.0 [facility] Comment on above: Performed By: #### C 120, C141, C116, C406, C4521, C118, C47, C4523, C215 #### [facility] [address] [facility] [address] [place] [address] Creatinine [Mass/Vol] 1.2 mg/dL Normal 0.1-1.2 [facility] Comment on above: Performed By: #### C 120, C141, C116, C406, C4521, C118, C47, C4523, C215 #### [facility] [address] [facility] [address] [place] [address] GFR/1.73 sq M.predicted MDRD (S/P/Bld) [Vol rate/Area] 43 mL/min per 1.73 Low >60 [facility] Comment on above: Result Comment: The GFR estimate is not adjusted for race. If the patient's race is -[place], the GFR estimate must be multiplied by a factor of 1.21. Performed By: #### C 120, C141, C116, C406, C4521, C118, C47, C4523, C215 #### [facility] [address] [place] [address] Glucose [Mass/Vol] 157 mg/dL High 74-100 [facility] Comment on above: Performed By: #### C 120, C141, C116, C406, C4521, C118, C47, C4523, C215 #### [facility] [address] [place] [address] Potassium [Moles/Vol] 4.3 mmol/L Normal 3.5-5.3 [facility] Comment on above: Performed By: #### C 120, C141, C116, C406, C4521, C118, C47, C4523, C215 #### [facility] [address] [facility] [address] [place] [address] Protein [Mass/Vol] 6.7 g/dL Normal 6.3-8.4 [facility] Comment on above: Performed By: #### C 120, C141, C116, C406, C4521, C118, C47, C4523, C215 #### [facility] [facility] [address] [place] [address] Sodium [Moles/Vol] 136 mmol/L Normal 135-145 [facility] Comment on above: Performed By: #### C 120, C141, C116, C406, C4521, C118, C47, C4523, C215 #### [facility] [facility] [address] [place] [address] Urea nitrogen [Mass/Vol] 25 mg/dL High 6-22 [facility] Comment on above: Performed By: #### C 120, C141, C116, C406, C4521, C118, C47, C4523, C215 #### [facility] [address] [place] [address] [address] [place] [address] Direct LDLon 01-18-2020 Cholesterol in LDL [Mass/Vol] 49 mg/dL Normal <130 [facility] Comment on above: Order Comment: Items in this order include: Cholesterol, Comprehensive Metabolic Panel, Direct LDL , HDL, Uric Acid , CBC with differential, HgbA1C, , , Slide Scan if Indicated, Manual Differential if Indicated Testing Performed By: [facility] [address] [place] [address]. [place] [address] Dr. Donnie Jean, Rn Referral Result Comment: LDL goal dependent upon individual risk Performed By: #### C 120, C141, C116, C406, C4521, C118, C47, C4523, C215 #### [facility] [address] [place] [address] HDLon 01-18-2020 Cholesterol in HDL [Mass/Vol] 30 mg/dL Low >50 [facility] Comment on above: Performed By: #### C 120, C141, C116, C406, C4521, C118, C47, C4523, C215 #### [facility] [address] [place] [address] [id number] 01-18-2020 HbA1c (Bld) [Mass fraction] 6.7 % High <5.7 [facility] Comment on above: Order Comment: Items in this order include: Cholesterol, Comprehensive Metabolic Panel, Direct LDL , HDL, Uric Acid , CBC with differential, HgbA1C, , , Slide Scan if Indicated, Manual Differential if IndicatedTesting Performed By: [facility] [facility] [place] [address] Dr. Donnie Jean, Rn Referral Result Comment: Refe rence Interval: Normal: below 5.7%. Prediabetes: 5.7% to 6.4%. Diabetes: 6.5% or above. Performed By: #### C 709 #### [facility] [address] [place] [address] Manual Differential if Indic atedon 01-18-2020 Anisocytosis Ql (Bld) SLIGHT Normal [facility] Comment on above: Order Comment: Recei mandy comment: User comments: Slide comments: Performed By: #### C 120, C141, C116, C406, C4521, C118, C47, C4523, C215 #### [facility] [address] [place] [address] Performed By: #### C 709 #### [facility] [address] [place] [address] Basophils 2 % Normal [facility] Comment on above: Order Comment: Recei mandy comment: User comments: Slide comments: Performed By: #### C 120, C141, C116, C406, C4521, C118, C47, C4523, C215 #### [facility] [address] [place] [address] Hellier Cells SLIGHT Normal [facility] Comment on above: Order Comment: Recei mandy comment: User comments: Slide comments: Performed By: #### C 120, C141, C116, C406, C4521, C118, C47, C4523, C215 #### [facility] [address] [place] [address] Performed By: #### C 709 #### [facility] [address] [place] [address] Hypochromasia SLIGHT Normal SLIGHT [facility] Comment on above: Order Comment: Recei mandy comment: User comments: Slide comments: Performed By: #### C 120, C141, C116, C406, C4521, C118, C47, C4523, C215 #### [facility] [address] [place] [address] Performed By: #### C 709 #### [facility] [address] [place] [address] Lymphocytes 4 % Low 20-51 [facility] Comment on above: Order Comment: Recei mandy comment: User comments: Slide comments: Performed By: #### C 120, C141, C116, C406, C4521, C118, C47, C4523, C215 #### [facility] [address] [place] [address] Macrocytes Ql (Bld) SLIGHT Normal [facility] Comment on above: Order Comment: Recei mandy comment: User comments: Slide comments: Performed By: #### C 120, C141, C116, C406, C4521, C118, C47, C4523, C215 #### [facility] [address] [place] [address] Performed By: #### C 709 #### [facility] [address] [place] [address] Monocytes 3 % Normal 2-9 [facility] Comment on above: Order Comment: Recei mandy comment: User comments: Slide comments: Performed By: #### C 120, C141, C116, C406, C4521, C118, C47, C4523, C215 #### [facility] [address] [place] [address] Neutrophils 91 % High 42-75 [facility] Comment on above: Order Comment: Recei mandy comment: User comments: Slide comments: Performed By: #### C 120, C141, C116, C406, C4521, C118, C47, C4523, C215 #### [facility] [address] [place] [address] Ovalocytes SLIGHT Normal [facility] Comment on above: Order Comment: Recei mandy comment: User comments: Slide comments: Performed By: #### C 120, C141, C116, C406, C4521, C118, C47, C4523, C215 #### [facility] [address] [place] [address] Performed By: #### C 709 #### [facility] [address] [place] [address] Poikilocytosis SLIGHT Normal [facility] Comment on above: Order Comment: Recei mandy comment: User comments: Slide comments: Performed By: #### C 120, C141, C116, C406, C4521, C118, C47, C4523, C215 #### [facility] [address] [place] [address] Performed By: #### C 709 #### [facility] [address] [place] [address] Polychromasia SLIGHT Normal [facility] Comment on above: Order Comment: Jorge L galvan comment: User comments: Slide comments: Performed By: #### C 120, C141, C116, C406, C4521, C118, C47, C4523, C215 #### [facility] [address] [place] [address] Performed By: #### C 709 #### [facility] [address] [place] [address] Uric Acidon 01-18-2020 Urate [Mass/Vol] 5.2 mg/dL Normal 2.5-6.2 [facility] Comment on above: Performed By: #### C 120, C141, C116, C406, C4521, C118, C47, C4523, C215 #### [facility] [address] [place] [address] Encounters Encounter Date Encounter Type Care Provider Facility Start: 10-21-2023 End: 10-21-2023 ambulatory ANTONIO B APLING Not Available Start: 09-30-2023 End: 10-01-2023 ambulatory ANTONIO B APLING Not Available Start: 09-20-2023 End: 09-20-[address] [facility] Start: 03-08-2023 End: 03-08-2023 ambulatory BECK RENEE Facility:[facility] Start: 03-01-2023 End: 03-01-2023 ambulatory BECK RENEE Facility:[facility] Start: 02-19-2023 ambulatory BECK RENEE Facility: [facility] Start: 02-06-2023 End: 02-06-[address] SON HADLEY Facility:[facility] Start: 01-18-2023 End: 01-19-2023 ambulatory BECK RENEE Facility:[facility] Start: 01-18-2023 End: 01-18-2023 ambulatory BECK RENEE Facility:[facility] Start: 12-25-2022 End: 12-25-2022 ambulatory TRACI AMOL [facility] Start: 06-26-2022 End: 06-27-2022 ambulatory YOU BARILLAS Facility:[facility] Start: 05-08-2022 End: 05-09-[address] BENNIE ALBRIGHT . Facility:[facility] Start: 04-03-2022 End: 04-18-2022 ambulatory LOU RANDHAWA Facility:[facility] Start: 04-01-2022 End: 04-16-2022 Evaluation and management of inpatient Genaro Gordillo Facility:[facility] Start: 03-22-2022 End: 04-01-2022 Evaluation and management of inpatient DR FARSHAD DONALDSON . Facility: Start: 11-02-2021 ambulatory PETRA ARAIZA Facility :[facility] Start: 08-17-2021 ambulatory KRZYSZTOF TEMPLELAN Og TURNER CAZENOVIA Facility:[facility] Start: 07-21-2020 End: 07-21-2020 Patient encounter procedure A[facility] Procedures Date Procedure Procedure Detail Performing Clinician Start: 04-03-2022 Antibody screen LOU MUNIZ Comment on above: Performed By: #### 8 5499 #### [facility] [address] Payers Date Payer Category Payer Medicare [id number] 1960 Medicaid [id number] 1960 Medicare [id number] 1960 Private Health Insurance 101 [id number] 1940 Unknown [id number] 1940 Unknown [id number] [id number] 1940 Unknown [id number] 2. 840.1.390643.3.579.2.594 1940 Unknown [id number] 2. 840.1.518954.3.579.2.594 1940 Unknown [id number] .. 40.1.190553.3.579.2.647 1940 Unknown [id number] 2.16.8 40.1.995331.3.579.2.647 1939 Unknown [id number] 2.16.8 40.1.797624.3.579.2.647 1939 Unknown [id number] 2.16.84 0.1.983067.3.579.2.593 1940 Unknown [id number] 2.16.84 0.1.718392.3.579.2.593 1940 Unknown [id number] 2.16.84 0.1.148332.3.579.2.593 1939 Unknown [id number] 2.16.84 0.1.719382.3.579.2.593 1939 Unknown [id number] 2.16.84 0.1.138033.3.579.2.593 1939 Unknown [id number] 2.16.84 0.1.731135.3.579.2.593 1939 Unknown [id number] 2.16.84 0.1.214876.3.579.2.593 1939 Unknown [id number] 2.16.84 0.1.970074.3.579.2.593 1939 Unknown [id number] 2.16.840 .1.103073.3.579.2.1259 1939 Unknown [id number] 2.16.840 .1.889596.3.579.2.1259 1939 Unknown [id number] 2.16.840. 1.374534.3.579.2.1259 Progress note 09-20-2023 Note Date & Type Note Facility 09-20-2023 Note [facility] Subjective María Elena Tafoya is a 83 y.o. year old female patient being seen for Follow-up Patient Active Problem List Diagnosis Bradycardia PAF (paroxysmal atrial fibrillation) (CMS/HCC) Anemia due to blood loss Atherosclerosis of aorta (CMS/HCC) Family History Problem Relation Name Age of Onset Diabetes Sister Diabetes Brother Diabetes Maternal Grandfather Social History Tobacco Use Smoking status: Former Types: Cigarettes Smokeless tobacco: Never Substance Use Topics Alcohol use: Not Currently HPI María Elena is seen in follow-up. She is a 83-year-old woman who in March 2022 was admitted to the [facility] and then [facility] with acute gallstone pancreatitis, acute blood loss anemia, hypovolemic shock, leukocytosis with prior history of CLL, in that setting she had atrial fibrillation with rapid ventricular response. She was managed medically. She reverted to sinus rhythm. She was seen in follow-up in clinic and an event monitor was ordered and showed evidence of wide-complex tachycardia but no clear atrial fibrillation. This was then investigated by a stress test and an echocardiogram that were not revealing for evidence of ischemia. She had normal ventricular function by echocardiogram. Today she reports that she has been doing well. Her main issue is recurrent falls with resultant hip fracture and wrist fracture. She is not very ambulatory. She denies angina and heart failure symptoms. She follows with oncology regarding her blood disorder. Review of Systems All other systems reviewed and are negative. Objective Visit Vitals BP 110/50 (BP Location: Left arm, Patient Position: Sitting, BP Cuff Size: Adult) Pulse 56 Resp 11 Ht 1.651 m (5' 5 ) Wt 76.2 kg (168 lb) SpO2 98% BMI 27.96 kg/m??? OB Status Postmenopausal Smoking Status Former BSA 1.87 m??? Physical Exam Constitutional: Appearance: She is well-developed. She is not ill-appearing. Comments: frail HENT: Head: Normocephalic and atraumatic. Nose: Nose normal. Eyes: General: No scleral icterus. Pupils: Pupils are equal, round, and reactive to light. Neck: Thyroid: No thyromegaly. Vascular: No JVD. Cardiovascular: Rate and Rhythm: Regular rhythm. Bradycardia present. Pulses: Radial pulses are 2+ on the right side and 2+ on the left side. Heart sounds: Normal heart sounds. No murmur heard. No friction rub. No gallop. Pulmonary: Effort: Pulmonary effort is normal. No respiratory distress. Breath sounds: Normal breath sounds. No wheezing or rales. Chest: Chest wall: No tenderness. Abdominal: General: Bowel sounds are normal. There is no distension. Palpations: Abdomen is soft. Tenderness: There is no abdominal tenderness. Musculoskeletal: General: No swelling. Cervical back: Neck supple. Comments: In wheelchair Skin: General: Skin is warm and dry. Neurological: General: No focal deficit present. Mental Status: She is alert and oriented to person, place, and time. Psychiatric: Mood and Affect: Mood normal. Behavior: Behavior is cooperative. Judgment: Judgment normal. Allergies No Known Allergies Medications Current Outpatient Medications: allopurinol (Zyloprim) 100 mg tablet, Take 1 tablet every day by oral route for 30 days., Disp: , Rfl: amiodarone (Pacerone) 200 mg tablet, Take 1 tablet (200 mg) by mouth every other day., Disp: 15 tablet, Rfl: 5 aspirin 81 mg chewable tablet, Chew 1 tablet every day by oral route., Disp: , Rfl: cholecalciferol (Vitamin D-3) 25 MCG (1000 UT) tablet, , Disp: , Rfl: docusate sodium (Colace) 100 mg capsule, , Disp: , Rfl: letrozole (Femara) 2.5 mg chemo tablet, Take 1 tablet every day by oral route for 30 days., Disp: , Rfl: metoprolol tartrate (Lopressor) 25 mg tablet, Take 0.5 tablets twice a day by oral route., Disp: , Rfl: traMADol (Ultram) 50 mg tablet, , Disp: , Rfl: Recent Labs No visits with results within 6 Month(s) from this visit. Latest known visit with results is: Hospital Outpatient Visit on 06/26/2022 Component Date Value POC SARS COV-2, NAAT 06/26/2022 NEGATIVE Glucose POC 06/26/2022 116 (H) Glucose POC 06/26/2022 121 (H) 09/18/2023: WBC 30, hemoglobin 15.6, platelets 312, sodium 135, potassium 4.2, BUN 38, creatinine 2.05. eGFR 23. Imaging and other tests Stress test 02/07/2023: Small fixed apical perfusion defect On gated analysis, there is hypokinetic motion of the apex. LVEF is 49 %. Transient ischemic dilatation ratio (TID) is 1.17. On attenuation correction CT, small bilateral pleural effusions present. The Lexiscan ECG was negative for ischemia. Impression: * Intermediate risk for a cardiovascular event with small apical perfusion defect and LVEF 49%. Echocardiogram 02/07/2023: Left Ventricle: Left ventricle appears normal in size. There is mild concentric increased wall thickness/hypertrophy. Systolic function (more content not included)... [facility] Progress note 12-25-2022 Note Date & Type Note Facility 12-25-2022 Note Cardiovascular [facility] SUBJECTIVE Chief Complaint Patient presents with Atrial Fibrillation María Elena Tafoya is a 82 y.o. female here for follow-up. HPI She is an 82-year-old woman who was admitted in March 2022 to [facility] and then [facility] with acute gallstone pancreatitis, acute blood loss anemia, hypovolemic shock, leukocytosis with history of CLL, atrial fibrillation with rapid ventricular response, pneumonia and respiratory failure in addition to acute on chronic kidney disease. She has prior history of vascular dementia, protein malnutrition, breast cancer. 12/25/2022 -She presents to clinic today for follow-up. She is accompanied by her sister, Jessenia. -She had an event monitor that noted episodes of wide complex tachycardia (possible VT vs aberrant a.fib). -She notes maybe a couple times of month episodes of dizziness, typically while she is sitting, lasts no more than 30 seconds then resolves on its own. -She ambulates with a walker, she does not do much exertion. -She denies CP, dyspnea, orthopnea, PND, LE edema, palpitations, bleeding issues. Patient Active Problem List Diagnosis Bradycardia PAF (paroxysmal atrial fibrillation) (CMS/HCC) Anemia due to blood loss Past Medical History: Diagnosis Date Atrial fibrillation (CMS/HCC) Blood loss anemia Bradycardia Lower extremity edema Ventricular tachycardia Family History Problem Relation Name Age of Onset Diabetes Sister Diabetes Brother Diabetes Maternal Grandfather Social History Tobacco Use Smoking status: Former Types: Cigarettes Smokeless tobacco: Never Substance Use Topics Alcohol use: Not Currently No Known Allergies Review of Systems Constitutional: Negative. Cardiovascular: Negative for chest pain, dyspnea on exertion, irregular heartbeat, leg swelling, near-syncope, orthopnea, palpitations, paroxysmal nocturnal dyspnea and syncope. Neurological: Positive for dizziness. OBJECTIVE Visit Vitals BP 131/82 (BP Location: Left arm, Patient Position: Sitting) Pulse 72 Ht 1.651 m (5' 5 ) Wt 76.2 kg (168 lb) SpO2 95% BMI 27.96 kg/m??? OB Status Postmenopausal Smoking Status Former BSA 1.87 m??? Medications: Current Outpatient Medications: allopurinol (Zyloprim) 100 mg tablet, Take 1 tablet every day by oral route for 30 days., Disp: , Rfl: aspirin 81 mg chewable tablet, Chew 1 tablet every day by oral route., Disp: , Rfl: cholecalciferol (Vitamin D-3) 25 MCG (1000 UT) tablet, , Disp: , Rfl: docusate sodium (Colace) 100 mg capsule, , Disp: , Rfl: hydroxyurea (Hydrea) 500 mg capsule, Take 1 capsule every day by oral route for 30 days., Disp: , Rfl: insulin lispro (HumaLOG) 100 unit/mL injection, , Disp: , Rfl: letrozole (Femara) 2.5 mg chemo tablet, Take 1 tablet every day by oral route for 30 days., Disp: , Rfl: metoprolol tartrate (Lopressor) 25 mg tablet, Take 0.5 tablets twice a day by oral route., Disp: , Rfl: oxybutynin (Ditropan) 5 mg tablet, Take 1 tablet every day by oral route for 30 days., Disp: , Rfl: pantoprazole (ProtoNix) 40 mg EC tablet, Take 40 mg by mouth before breakfast., Disp: , Rfl: tamsulosin (Flomax) 0.4 mg 24 hr capsule, Take 1 capsule every day by oral route for 30 days., Disp: , Rfl: valproate (valproic acid) 250 mg/5 mL oral solution, , Disp: , Rfl: amiodarone (Pacerone) 200 mg tablet, Take 1 tablet (200 mg) by mouth every other day., Disp: 15 tablet, Rfl: 5 Physical Exam Vitals reviewed. Constitutional: Appearance: Normal appearance. She is normal weight. Comments: Ambulates with walker HENT: Head: Normocephalic and atraumatic. Right Ear: External ear normal. Left Ear: External ear normal. Eyes: Extraocular Movements: Extraocular movements intact. Conjunctiva/sclera: Conjunctivae normal. Pupils: Pupils are equal, round, and reactive to light. Neck: Vascular: No carotid bruit. Cardiovascular: Rate and Rhythm: Normal rate and regular rhythm. Pulses: Normal pulses. Heart sounds: Normal heart sounds. Pulmonary: Effort: Pulmonary effort is normal. Breath sounds: Normal breath sounds. Abdominal: General: Bowel sounds are normal. Palpations: Abdomen is soft. Musculoskeletal: Cervical back: Neck supple. Right lower leg: No edema. Left lower leg: No edema. Skin: General: Skin is warm and dry. Neurological: General: No focal deficit present. Mental Status: She is alert and oriented to person, place, and time. Psychiatric: Mood and Affect: Mood normal. Behavior: Behavior normal. Thought Content: Thought content normal. Judgment: Judgment normal. Labs/Testing/Procedures: Event monitor 08/2022 -sinus rhythm with episodes of wide complex tachycardia (a.fib with aberrancy vs ventricular tachycardia). Hospital Outpatient Visit on 06/26/2022 Component Date Value Ref Range Status POC SARS COV-2, NAAT 06/26/2022 NEGATIVE NEGATIVE Final Glucose POC 06/26/2022 11 (more content not included)... [facility] Progress note 12-25-2022 Note Date & Type Note Facility 12-25-2022 Note Patient here for fol low up VT on event monitor per Dr. Leos. Patient denies chest pain and SOB. Feels good. Review of Systems All other systems reviewed and are negative. [facility] Discharge summary note 04-16-2022 Note Date & Type Note Facility 04-16-2022 Note MR#: [id number] [facility] Pt. Name: María Elena Tafoya Admitted: 04/01/2022 Discharged: 04/16/2022 Date of : 1940 Physician: Genaro Gordillo MD DISCHARGE SUMMARY ADDENDUM: I took care of this patient since April 14, and she is leaving today on April 16. The patient was pending discharge placement. The discharge summary already was dictated. For the last couple days, the patient been doing fairly well after her cholecystectomy as well as a gallstone pancreatitis and tolerating her diet. The only thing was lingering little bit is her leukocytosis that felt to be infectious in etiology versus leukemoid reaction. The patient being discharged today and to repeat her CBC tomorrow and to follow up on that make sure her WBC count is improving and back to normal. Again, the patient seems to be tolerating her diet and in no acute distress. PHYSICAL EXAMINATION: HEENT: Eyes, extraocular muscles intact. NECK: Supple. No JVD or adenopathy. LUNGS: Clear to auscultation. HEART: Regularly irregular. ABDOMEN: Soft. Positive bowel sounds. EXTREMITIES: Positive pulses. NEUROLOGIC: The patient is pleasantly confused at times and in no acute distress. Again, the main issue on discharge today is to follow up on her WBC counts and being off antibiotics to make sure resolution. Electronically Signed by: Genaro Gordillo MD 04/24/2022 12:47 P Genaro Gordillo MD Date Dict: 04/16/2022/09:27 A/Genaro Gordillo MD Date Trans: 04/16/2022 09:55 A/erik [id number] cc: Bennie Albright M.D. [address] [address] [facility] Discharge summary note 04-13-2022 Note Date & Type Note Facility 04-13-2022 Note MR#: [id number] [facility] Pt. Name: María Elena Tafoya Admitted: 04/01/2022 Discharged: 04/13/2022 Date of : 1940 Physician: Lucian Ji MD DISCHARGE SUMMARY PRIMARY CARE PHYSICIAN: Bennie Albright M.D. PRINCIPAL DIAGNOSES: 1. Acute gallstone pancreatitis. 2. Acute blood loss anemia secondary to postprocedural sphincterectomy bleeding. 3. Hypovolemic shock secondary to above. 4. Leukocytosis with a history of known chronic lymphocytic leukemia. 5. Atrial fibrillation with RVR. 6. Sick sinus syndrome/tachybrady syndrome. 7. Aspiration pneumonia. 8. Acute hypercapnic and hypoxic respiratory failure. 9. Acute kidney injury on chronic kidney disease 3. 10. Insulin dependent diabetes mellitus 2. 11. Hypertension. 12. Vascular dementia. 13. Protein calorie malnutrition. 14. History of breast cancer. 15. Urinary retention status post Chaney removal and failing voiding trial. CONSULTATIONS: This admission included Cardiology, General Surgery, Gastroenterology, and Infectious Disease. PROCEDURES DURING THIS ADMISSION: Included: On 04/02, ERCP with biliary sphincterectomy and stone removal. 04/03 was a repeat ERCP with biliary stent placement. 04/12, the patient had a lap-cholecystectomy. The patient initially had multiple blood transfusions secondary to postprocedural sphincterectomy bleeding. HOSPITAL COURSE: This patient is an 81-year-old female with a past medical history as above, who was transferred from [facility] secondary to gallstone induced acute pancreatitis. She initially presented there with weakness secondary to UTI, found to have an JAYLON and abnormal liver function. She also developed atrial fibrillation with RVR and hypoxia likely secondary to aspiration pneumonia. She was started on Zosyn with improvement of respiratory status, however, discontinued any oxygen during her stay. The patient's initial lipase was elevated at 35. She did have leukocytosis of 30,000 in the setting of CLL versus acute pancreatitis. Ultrasound was revealing gallbladder thickening with dependent sludge, but negative sonographic Bob sign and the patient was admitted to [facility] for further treatment. She was aggressively rehydrated and had her ERCP x2 as per above, first one was complicated with acute bleeding with hypovolemic shock, which did resolve after blood transfusions and resuscitation. Of note, the patient also went into atrial fibrillation RVR and remained in atrial fibrillation during the stay, however, also had sick sinus/tachy-marion syndrome. Cardiology was on board. She was on amiodarone, digoxin, diltiazem, and metoprolol prior to admission. Cardiology did discontinue her diltiazem and digoxin and only continued the patient on amiodarone 200 mg daily. She was loaded with 400 mg for a week and her last dose of that is 04/13 in the evening; on 04/14, she will be on 200 mg of amiodarone daily and the patient is also taking metoprolol tartrate 12.5 mg every 12 hours with holding parameters given her tachy-marion syndrome as she has marion down into the 40s and gets tachy at 120. Cardiology has put a consult out to Interventional Cardiology to follow up with the patient in the outpatient setting as she would benefit from a pacemaker and the patient knows that they will be following up with her. Initially, the patient did not want to have sheyla completed, however, on 04/11 she eventually agreed and understood the importance and General Surgery took her to surgery on 04/12 and had a lap-sheyla with no complications. Of note, she did have elevated leukocytosis, which was in the setting of CLL. ID was consulted. Blood cultures were negative and they were not recommending any antibiotics at this time. 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 She was on Eliquis for now and will be also having an outpatient evaluation for Watchman procedure. In regard to her anterior aspiration pneumonia and hypoxic/hypercapnic respiratory failure, she remained on 2 L supplemental O2. She received short course of 3 days of Zosyn and was not really in any acute respiratory distress. At this time, she had mild JAYLON secondary to hypovolemia, which essentially resolved after some gentle IV fluid hydration and otherwise, the patient is essentially stable. No acute distress and was appropriate for discharge, however, it was noted that the patient did have her Chaney removed a couple days ago, however, was failing her voiding trial after Chaney removal and did require multiple straight caths with most recent one having retention of 600 mL in her bladder and we have ordered to replace the Chaney at this time and to repeat a voiding trial at the longterm in 1-3 days and follow up with provider at that facility, however, her discharge is currently pending precert, so if she does remain at this facility, we may also just discontinue (more content not included)... [facility] Summary Purpose Family History No Family History Records FoundNo Family History Records FoundNo Family History Records FoundNo Family History Records FoundNo Family History Records FoundNo Family History Records FoundNo Family History Records FoundNo Family History Records FoundNo Family History Records Found Advance Directives No Advanced Directives Records FoundNo Advanced Directives Records FoundNo Advanced Directives Records FoundNo Advanced Directives Records FoundNo Advanced Directives Records FoundNo Advanced Directives Records FoundNo Advanced Directives Records FoundNo Advanced Directives Records FoundNo Advanced Directives Records Found Additional Source Comments INFORMATION SOURCE (unrecogn ized section and content) DATE CREATED AUTHOR 02/04/2020 [facility] DATE CREATED AUTHOR AUTHOR'S ORGANIZ ATION 08/23/2020 [facility] DATE CREATED AUTHOR AUTHOR'S ORGANIZ ATION 09/28/2020 [facility] DATE CREATED AUTHOR AUTHOR'S ORGANIZ ATION 02/12/2021 [facility] DATE CREATED AUTHOR AUTHOR'S ORGANIZ ATION 02/07/2022 [facility] DATE CREATED AUTHOR AUTHOR'S ORGANIZ ATION 07/13/2022 [facility] DATE CREATED AUTHOR AUTHOR'S ORGANIZ ATION 03/15/2023 [facility] DATE CREATED AUTHOR AUTHOR'S ORGANIZ ATION 09/21/2023 [facility] DATE CREATED AUTHOR AUTHOR'S ORGANIZ ATION 10/22/2023 [facility] [employer] FOR RECORDS PERTAINING TO PATIENTS WHO ARE OR HAVE BEEN ENROLLED IN A CHEMICAL DEPENDENCY/SUBSTANCEABUSE PROGRAM, SOME INFORMATION MAY BE OMITTED. This clinical summary was aggregated from multiple sources. Caution should be exercised in using it in the provision of clinical care. This summary normalizes information from multiple sources, and as a consequence, information in this document may materially change the coding, format and clinical context of patient data. In addition, data may be omitted in some cases. CLINICAL DECISIONS SHOULD BE BASED ON THE PRIMARY CLINICAL RECORDS. [facility] [employer] [facility]. provides no warranty or guarantee of the accuracy or completeness of information in this document.
[2023-11-27 08:39] LABS: Hematocrit 52.9 % (36.0-48.0); Hemoglobin 15.9 g/dL (12.0-16.0); Mean Corpuscular HGB Conc 30.1 g/dL (29.9-35.2); Mean Corpuscular Hemoglobin 24.5 pg (26.7-34.0); Mean Corpuscular Volume 81.6 fL (81.0-99.0); Mean Platelet Volume 9.7 fL (9.5-13.5); Platelet Count 394 10^3/uL (150-450); Red Blood Count 6.48 10^6/uL (4.20-5.40); Red Cell Distribution Width 19.9 % (11.0-15.0)
[2023-11-27 10:17] LABS: White Blood Count 35.9 10^3/uL (4.0-11.0)
[2023-11-27 10:33] LABS: Band Neutrophils Absolute 0.7 10^3/uL (0.0-0.3); Eosinophils Absolute Manual 1.07 10^3/uL (0.00-0.70); Lymphocytes Absolute Manual 2.51 10^3/uL (1.20-3.80); Monocytes Absolute Manual 1.07 10^3/uL (0.30-0.80); Segmented Neut Absolute Manual 30.15 10^3/uL (1.4-6.5)
[2023-11-27 10:36] LABS: Basophils Abs Manual 0.35 10^3/uL (0.00-0.10)
[2023-11-27 10:37] LABS: Ovalocytes 1+; Poikilocytosis 1+; Tear Drop Cells 1+
== END 2023-11-27 01:51 | disposition home or self-care (01) ==
LOC: LAB 01:50
PROVIDERS: PCP Family Medicine; Visit Provider Family Medicine
DX: R71.8 Other abnormality of red blood cells (principal); D72.829 Elevated white blood cell count, unspecified; D72.825 Bandemia
CPT/HCPCS: 36415; 85027; 87624

== ENCOUNTER 2024-01-27 01:30 | Outpatient (REF) | payer MEDICARE, MEDICAID, SELFPAY ==
--- OUTSIDE RECORDS SUMMARY | 2024-01-27 01:36 | XMS_ITS | CCD ---
Author Name Unknown Address [address] [place] [address] Organization [employer] Care Team Providers Care Senior Insight Manager Name Role Phone ARA ROBB Attending Unavailable PETRA ARAIZA Attending Unavailable SELF, SELF Referring Unavailable [facility], OTHER Referring Unavailable PETRA ARAIZA Attending Unavailable PETRA ARAIZA Referring Unavailable PETRA ARAIZA Attending Unavailable LOU RANDHAWA Admitting Unavailable LOU RANDHAWA Attending Unavailable BENNIE ALBRIGHT Primary Care Unavailable BENNIE ALBRIGHT Referring Unavailable Duy, Samueli Attending Unavailable SELF, REFERRED Referring Unavailable HOY, BENNIE Primary Care Unavailable Duy, Hani Admitting Unavailable ALASTAL, YASEEN Admitting Unavailable ALASTAL, YASEEN Attending Unavailable BENNIE ALBRIGHT Referring Unavailable BENNIE ALBRIGHT Primary Care Unavailable VÍCTOR, BECK Primary Care Unavailable NATALEE Freeman, DR AVERY Admitting Unavailable NATALEE Freeman, DR AVERY Attending Unavailable SELENEY .DR AVERY Consulting Unavailable VÍCTOR, BECK Primary Care Unavailable ERVIN, LAUREL Admitting Unavailable LAUREL MUELLER Attending Unavailable ERVIN, BARRAGAN Consulting Unavailable VÍCTOR, BECK Primary Care Unavailable TRACI CARMICHAEL Attending Unavailable TRACI CARMICHAEL Consulting Unavailable JESSICA CARMICHAELA Jany Admitting Unavailable VÍCTOR, BECK Primary Care Unavailable JESSICA CARMICHAELA C Admitting Unavailable TRACI CARMICHAEL Attending Unavailable DR BENNIE VERDIN Admitting Unavailable DR BENNIE VERDIN Attending Unavailable DR BENNIE VERDIN Consulting Unavailable LEMON GROVE, DR ROGE Shoemaker Consulting Unavailable JOMAR, DR SON Azevedo Attending UnavailBECK Johnson Primary Care Unavailable JOMAR, DR SON Azevedo Consulting Unavaildario HADLEY, DR SON Azevedo Admitting Unavaildario WATSON ., TRUPTI MAKI Consulting UnavailFERMÍN Gomez Consulting Unavailable ROGE GORDON Consulting Unavailable MARIETTA MARTEL Consulting Unavailable NERI, CLARA Consulting Unavailable GRMAGDY ., DR FARSHAD Rose Consulting Unavaila jose carlos JERRY, H Admitting Unavailable CLARITZA, H Attending Unavailable NATALEE ., DR AVERY Consulting Unavailable CHERYL ., DR JOSHUA Rose Consulting Unavailable WEST, DR ROGE Shoemaker Consulting Unavailable ZINEO, DR JORGE Lopez Consulting Unavailable NADERER, DR BLAIRE Love Consulting Unavailable HAY ., DR CLAROS Consulting Unavailable SAMSA ., IJEOMA Consulting Unavailable CLARITZA, H Consulting Unavailable BROOKE COSTELLO Consulting Unavailable YOUNG, ROGE Consulting Unavailable ANTOINE, KERRI Consulting Unavailable CATRACHO LEWIS Consulting Unavailable VÍCTOR, BECK Primary Care Unavailable NATALEE ., DR AVERY Admitting Unavailable NATALEE ., DR AVERY Attending Unavailable NATALEE ., DR AVERY Consulting Unavailable TRACI CARMICHAEL Attending Unavailable MOUKARBELMARY LOU Attending Unavailable APLING, ANTONIO Stoddard Attending Unavailable APLING, ANTONIO Stoddard Attending Unavailable APLING, ANTONIO Stoddard Attending Unavailable APLING, ANTONIO Stoddard Referring Unavailable Unavailable Primary Care Provider UnavailKEELEY Lopez Referring Unavailable LEIGHTON HORVATH Attending Unavaildario e Allergies Allergy Classification Reported Allergen(s) Allergy Type Date of Onset Reaction(s) Facility (2 sources) Ciprofloxacin Drug Allergy 03-23-2022 [facility] Repository (2 sources) Dexamethasone; Translations: [DEXAMETHASONE] Drug Allergy 06-27-2023 [facility] (2 sources) Erythromycin; Translations: [ERYTHROMYCIN BASE] Drug Allergy 06-27-2023 [facility] (2 sources) Neomycin; Translations: [NEOMYCIN SULFATE] Drug Allergy 06-27-2023 [facility] (2 sources) Polymyxin B; Translations: [POLYMYXIN B] Drug Allergy 06-27-2023 [facility] (2 sources) Tobramycin; Translations: [TOBRAMYCIN] Drug Allergy 06-27-2023 [facility] Medications Current Medications Medication Drug Class(es) Dates Sig (Normalized) Sig (Original) acetaminophen 325 mg oral tablet (1 source) take 2 tablets by mouth every four hours as needed for pain and fever acetaminophen (TYLENOL) 325 mg tablet Take 2 tablets (650 mg total) by mouth every 4 (four) hours as needed for pain or fever. 0 Active allopurinol 100 mg oral tablet (1 source) Xanthine Oxidase Inhibitor take 1 tablet by mouth in the morning allopurinoL (ZYLOPRIM) 100 mg tablet Take 1 tablet (100 mg total) by mouth in the morning. 0 Active aluminum hydroxide 40 mg/ml / magnesium hydroxide 40 mg/ml / simethicone 4 mg/ml oral suspension (1 source) take 15 mL by mouth every four hours as needed alum-mag hydroxide-simeth (MAALOX) 200-200-20 mg/5 mL suspension Take 15 mL by mouth every 4 (four) hours as needed for indigestion. 0 Active amiodarone hydrochloride 200 mg oral tablet (1 source) Antiarrhythmic take 1 tablet by mouth in the morning amiodarone (PACERONE) 200 mg tablet Take 1 tablet (200 mg total) by mouth in the morning. 0 Active ascorbic acid 500 mg oral tablet (1 source) Vitamin C take 1 tablet by mouth in the morning ascorbic acid (VITAMIN C) 500 mg tablet Take 1 tablet (500 mg total) by mouth in the morning. 0 Active aspirin 81 mg delayed release oral tablet (1 source) Platelet Aggregation Inhibitor, Nonsteroidal Anti-inflammatory Drug take 1 tablet by mouth in the morning aspirin 81 mg Take 1 tablet (81 mg total) by mouth in the morning. 0 Active calcium carbonate 1500 mg oral tablet (1 source) take 1 tablet by mouth in the morning, then take 1 tablet by mouth at mealtime calcium carbonate (OS-IVETTE) 600 mg (1,500 mg) tablet Take 1 tablet (600 mg total) by mouth in the morning and 1 tablet (600 mg total) in the evening. Take with meals. 0 Active cholecalciferol 0.025 mg oral tablet (1 source) Vitamin D take 1 tablet by mouth in the morning cholecalciferol (VITAMIN D3) 1,000 units tablet Take 1 tablet (1,000 Units total) by mouth in the morning. 0 Active hydroxyurea 500 mg oral capsule (1 source) Antimetabolite take 1 capsule by mouth once daily hydroxyurea (HYDREA) 500 mg chemo capsule Take 1 capsule every day by oral route for 30 days. 0 Active 3 ml insulin glargine 100 unt/ml pen injector (1 source) Insulin Analog insulin glargine (LANTUS SOLOSTAR U-100 INSULIN) 100 unit/mL (3 mL) insulin pen 3 ml insulin lispro 100 unt/ml pen injector (1 source) Insulin Analog insulin lispro (HumaLOG KwikPen Insulin) 100 unit/mL insulin pen letrozole 2.5 mg oral tablet (1 source) Aromatase Inhibitor take 1 tablet by mouth once daily letrozole (FEMARA) 2.5 mg chemo tablet Take 1 tablet by mouth nightly 0 Active loperamide hydrochloride 2 mg oral tablet (1 source) Opioid Agonist loperamide (IMOD IUM A-D) 2 mg tablet metoprolol tartrate 25 mg oral tablet (1 source) beta-Adrenergic Damaris take 1 tablet by mouth in the morning, then take 1 tablet by mouth at bedtime metoprolol tartrate (LOPRESSOR) 25 mg tablet Take 1 tablet (25 mg total) by mouth in the morning and 1 tablet (25 mg total) before bedtime. 0 Active ondansetron 4 mg oral tablet (1 source) Serotonin-3 Receptor Antagonist ondansetron (ZOFRAN) 4 mg tablet oxybutynin chloride 5 mg oral tablet (1 source) Cholinergic Muscarinic Antagonist Start: 01-26-2023 oxybutynin (DITROPAN) 5 mg tablet pantoprazole 40 mg delayed release oral tablet (1 source) Proton Pump Inhibitor take 1 tablet by mouth twice daily pantoprazole (PROTONIX) 40 mg EC tablet Take 1 tablet twice a day by oral route for 30 days. 0 Active polyethylene glycol 3350 03612 mg powder for oral solution (1 source) Osmotic Laxative polyethylene gl ycol (GLYCOLAX) 17 gram packet Take 17 g by mouth daily as needed (constipation). 0 Active sennosides, retirement 8.6 mg oral tablet (1 source) senna (SENOKOT) 8.6 mg tablet Take 1 tablet (8.6 mg total) by mouth as needed. 0 Active tamsulosin hydrochloride 0.4 mg oral capsule (1 source) alpha-Adrenergic Damaris take 1 capsule by mouth once daily tamsulosin (FLOMAX) 0.4 mg capsule Take 1 capsule every day by oral route for 30 days. 0 Active traMADol hydrochloride 50 mg oral tablet (1 source) Opioid Agonist Start: 08-07-2023 traMADoL (ULTRAM) 50 mg tablet Problems Active Problems Problem Classification Problem Date Documented Date Episodic/Chronic Cancer of breast (1 source) Malignant neoplasm of unspecified site of left female breast; Translations: [MAL WILDA UNS SITE LT FEMALE BREAST] Onset: 02-08-2023 Chronic Cardiac dysrhythmias (8 sources) Unspecified atrial fibrillation; Translations: [Paroxysmal atrial fibrillation] Onset: 07-28-2022 Chronic Chronic kidney disease (2 sources) Chronic kidney disease, unspecified; Translations: [Chronic kidney disease, unspecified] Onset: 09-20-2023 Chronic Coagulation and hemorrhagic disorders (1 source) Coagulation defect, unspecified; Translations: [COAGULATION DEFECT UNSPECIFIED] Onset: 04-05-2022 Chronic Deficiency and other anemia (1 source) Anemia due to blood loss; Translations: [Iron deficiency anemia secondary to blood loss (chronic)] Onset: 07-28-2022 02-07-2023 Chronic Delirium, dementia, and amnestic and other [...] 02-08-2023 Chronic Diseases of white blood cells (6 sources) Elevated white blood cell count, unspecified; Translations: [Bandemia] Onset: 01-18-2022 Chronic E Codes: Fall (1 source) Other [...] Neoplasms of unspecified nature or uncertain behavior (2 sources) Polycythemia vera; Translations: [Polycythemia vera (clinical)] Onset: 01-18-2022 01-18-2022 Chronic Other aftercare (5 sources) Other termite control representative (current) drug therapy; Translations: [OTH ELECTROENCEPHALOGRAPHIC TECHNICIAN CURRENT DRUG THERAPY] Onset: 02-08-2023 Episodic Other aftercare (1 source) terminal supervisor (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 of aspirin; Translations: [CARE HOME CURRENT USE OF ASPIRIN] Onset: 03-06-2023 Episodic Other aftercare (1 source) shelter (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 of non-steroidal anti-inflammatories (NSAID); Translations: [CARE HOME USE NSAID] Onset: 02-08-2023 Episodic Other connective [...] INIT CLOS FX] Onset: 02-08-2023 Episodic Other fractures (2 sources) Closed fracture of right acetabulum; Translations: [Unspecified fracture of right acetabulum, subsequent encounter for fracture with routine healing] Onset: 03-10-2023 01-07-2024 Episodic Other fractures (1 source) Unspecified fracture of right acetabulum, subsequent encounter for fracture with routine healing; Translations: [Unspecified fracture of right acetabulum, subsequent encounter for fracture with routine healing] Onset: 01-07-2024 Episodic Other non-traumatic joint disorders (3 sources) Pain in right hip; Translations: [PAIN IN RIGHT HIP] Onset: 02-06-2023 Episodic Other nutritional; endocrine; and metabolic disorders (1 source) Other disorders of bilirubin metabolism; 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 Other nutritional; endocrine; and metabolic disorders (1 source) Obesity, unspecified; Translations: [OBESITY UNSPECIFIED] Onset: 04-05-2022 Chronic Peripheral and visceral atherosclerosis (1 source) Atherosclerosis of aorta; Translations: [Atherosclerosis of aorta] Onset: 01-22-2023 02-07-2023 Chronic Residual codes; unclassified (1 source) Acquired [...] KIDNEY DISEASE STG 3 UNSP] Onset: 04-05-2022 Unclassified (1 source) Establish Care Onset: 01-06-2024 Urinary tract infections (1 source) Urinary tract [...] VOMIT] Onset: 04-05-2022 Episodic Cancer of breast (2 sources) Personal history of malignant neoplasm of breast; Translations: [History of malignant neoplasm of breast] Onset: 04-05-2022 07-26-2022 Episodic Cardiac dysrhythmias (4 sources) Tachycardia, unspecified; Translations: [Bradycardia] Onset: 07-28-2022 Episodic Fracture of neck of femur (hip) (1 source) Closed fracture of hip; Translations: [Fracture of unspecified part of neck of right femur, initial encounter for closed fracture] Onset: 02-07-2023 02-07-2023 Episodic Leukemias (1 source) Myelodysplastic disease, 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; Translations: [MYELODYSPLASTIC DZ NOT CLASSIFIED] Onset: 04-05-2022 Episodic Malaise and fatigue (1 source) Weakness; Translations: [WEAKNESS] Onset: 04-05-2022 Episodic Nonmalignant breast conditions (1 source) Unspecified lump in the left breast, unspecified quadrant; Translations: [UNS LUMP IN LT BREAST UNS QUADRANT] Onset: 04-05-2022 Episodic Other aftercare (1 source) shelter (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 of insulin; Translations: [ELECTROENCEPHALOGRAPHIC TECHNICIAN CURRENT USE OF INSULIN] Onset: 04-05-2022 Episodic Other aftercare (1 source) terminal supervisor (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 of anticoagulants; Translations: [ELECTROENCEPHALOGRAPHIC TECHNICIAN CURRNT USE ANTICOAGULANTS] Onset: 04-05-2022 Episodic Other [...] Test Name Value Interpretation Reference Range Facility XR PELVIS MIN 3 VWSon 2023 XR PELVIS MIN 3 VWS XR PELVIS MIN 3 VWS Comparison May 30, 2023 XR PELVIS MIN 3 VWS Closed displaced fracture of right acetabulum with routine healing, unspecified portion of acetabulum, subsequent encounter Impression: 1. Stable appearance of fracture and transfixing hardware. Stable positioning and alignment. Finalized by Ruddy Sanders MD on 01/07/2024 3:[address] [facility] Office Visiton 09-20-2023 Follow-up visit [id number] Jennifer Tafoya leo Love 1940 F Date Provider Department Center 09/20/2023 MARY LOU FELIZ [facility] Family History Problem Relation Age of Onset Diabetes Sister Diabetes Brother Diabetes Maternal Grandfather Family Status - Relation Status Age at Sister Brother Maternal Grandfather Level of Service:03433 LA OFFICE/OUTPATIENT ESTABLISHED MOD MDM 30-39 MIN Reason for Visit and Comments: Follow-up [975386] Normal [facility] CBC W MANUAL DIFFon 03-08-20 23 ANISOCYTOSIS 1+ Normal [facility] Comment on above: Performed By: #### C OMID ####[facility] [address] [place] [address]Dr. Bhavani Barragan ATYPICAL LYMPH # Normal [facility] Comment on above: Performed By: #### C OMID ####[facility] [address] [place] [address]Dr. Jayceelan Barragan ATYPICAL LYMPH % Normal [facility] Comment on above: Performed By: #### C BCMAN ####[facility] [address] [place] [address]Dr. Jayceelan Barragan BAND # 1.3 103/ul Critically high 0.0-0.3 [facility] Comment on above: Performed By: #### C OMID ####[facility] [address] [place] [address]Dr. Jayceelan Barragan BAND % 4 % Normal 0-5 [facility] Comment on above: Performed By: #### C OMID ####[facility] [address] [place] [address]Dr. Bhavani Barragan BASOM # 0.00 103/ul Normal 0.00-0.10 [facility] Comment on above: Performed By: #### C BCMAN ####[facility] [address] [place] [address]Dr. Bhavani Barragan BASOM % 0.0 % Critically low 0.2-2.[address] [facility] Comment on above: Performed By: #### C BCMAN ####[facility] [address] [place] [address]Dr. Bhavani Barragan BLAST # Normal [facility] Comment on above: Performed By: #### C BCJERSON ####[facility] [address] [place], [place] [address]Dr. Bhavani Barragan BLAST % Normal [facility] Comment on above: Performed By: #### C BCJERSON ####[facility] [address] [place], [place] [address]Dr. Bhavani Barragan CORRECTED WBC Normal 4.0-11.0 [facility] Comment on above: Performed By: #### C BCJERSON ####[facility] [address] [place], [place] [address]Dr. Bhavani Barragan EOS # 0.00 103/ul Normal 0.00-0.70 [facility] Comment on above: Performed By: #### C BCJERSON ####[facility] [address] [place], [place] [address]Dr. Bhavani Barragan EOS% 0.0 % Critically low 0.9-7.[address] [facility] Comment on above: Performed By: #### C BCMAN ####[facility] [address] [place], [place] [address]Dr. Bhavani Barragan HCT 38.1 % Normal 36.0-48.0 [facility] Comment on above: Performed By: #### C BCMAN ####[facility] [address] [place], [place] [address]Dr. Bhavani Barragan HGB 11.6 g/dl Critically low 12.0-16.[address] [facility] Comment on above: Performed By: #### Jany ANNE ####[facility] [address] [place], [place] [address]Zq. Bhavani Barragan LYMPHM # 1.58 103/ul Normal 1.20-3.80 [facility] Comment on above: Performed By: #### C OMID ####[facility] [address] [place] [id number]. Bhavani Barragan LYMPHM% 5.0 % Critically low 20.5-60.0 [facility] Comment on above: Performed By: #### C OMID ####[facility] [address] [place] [id number]. Bhavani Barragan MCH 29.7 pg Normal 26.7-34.0 [facility] Comment on above: Performed By: #### Jany ANNE ####[facility] [address] [place] [id number]. Bhavani Barragan MCHC 30.4 g/dl Normal 29.9-35.2 [facility] Comment on above: Performed By: #### Jany ANNE ####[facility] [address] [place] [id number]. Bhavani Barragan MCV 97.7 fL Normal 81.0-99.0 [facility] Comment on above: Performed By: #### Jany ANNE ####[facility] [address] [place] [id number]. Bhavani Barragan METAMYELOCYTE # Normal [facility] Comment on above: Performed By: #### Jany ANNE ####[facility] [address] [place] [id number]. Bhavani Barragan METAMYELOCYTE % Normal [facility] Comment on above: Performed By: #### Jany ANNE ####[facility] [address] [place] [id number]. Bhaavni Barragan MONOM# 0.95 103/ul Critically high 0.30-0.80 [facility] Comment on above: Performed By: #### Jany ANNE ####[facility] [address] [place] [id number]. Bhavani Barragan MONOM% 3.0 % Normal 1.7-12.0 [facility] Comment on above: Performed By: #### C OMID ####[facility] [address] [place] [id number]. Bhavani Barragan MPV 10.6 fL Normal 9.5-13.5 [facility] Comment on above: Performed By: #### C OMID ####[facility] [address] [place] [id number]. Bhavani Barragan MYELOCYTE # Normal [facility] Comment on above: Performed By: #### C OMID ####[facility] [address] [place] [id number]. Bhavani Barragan MYELOCYTE % Normal [facility] Comment on above: Performed By: #### C OMID ####[facility] [address] [place] [id number]. Bhavani Barragan NRBC Normal [facility] Comment on above: Performed By: #### C OMID ####[facility] [address] [place] [id number]. Bhavani Barragan PLT 280 103/ul Normal 150-450 [facility] Comment on above: Performed By: #### C OMID ####[facility] [address] [place] [id number]. Bhavani Barragan RBC 3.90 106/ul Critically low 4.20-5.40 [facility] Comment on above: Performed By: #### C OMID ####[facility] [address] [place] [id number]. Bhavani Barragan RDW 18.2 % Critically high 11.0-15.0 [facility] Comment on above: Performed By: #### C OMID ####[facility] [address] [place] [id number]. Bhavani Barragan SEG # 27.90 103/ul Critically high 1.40-6.50 [facility] Comment on above: Performed By: #### C OMID ####[facility] [address] [place], [place] [address]Dr. Bhavani Barragan SEG % 88.0 % Critically high 43.0-75.0 [facility] Comment on above: Performed By: #### C OMID ####[facility] [address] [place] [id number]. Bhavani Barragan WBC 31.7 103/ul Critically high 4.0-11.0 [facility] Comment on above: Performed By: #### C OMID ####[facility] [address] [place] [id number]. Bhavani Barragan PERIPHERAL SMEARon 3 Pathologist Cyto stain Nom (Cvx/Vag) [ID] DR. AFTAB SCHAFER Normal [facility] Comment on above: Result Comment: Revi ew of peripheral smear reveals RBCs with anisocytosis. The platelets areadequate in number with normal morphology. There is leukocytosis withneutrophilia. The WBC morphology is unremarkable. No atypical lymphocytes orimmature blasts are seen. The findings are suggestive of a reactive process.Clinical correlation is recommended. Performed By: #### P ERSMR ####[facility] [address] [place] [address]Dr. Bhavani Barragan CBC W MANUAL DIFFon 03-01-20 23 ANISOCYTOSIS 1+ Normal [facility] Comment on above: Performed By: #### C OMID ####[facility] [address] [place] [id number]. Bhavani Barragan ATYPICAL LYMPH # Normal [facility] Comment on above: Performed By: #### C OMID ####[facility] [address] [place] [id number]. Bhavani Barragan ATYPICAL LYMPH % Normal [facility] Comment on above: Performed By: #### C OMID ####[facility] [address]abs[address] [place] [id number]. Bhavani Barragan BAND # 1.8 103/ul Critically high 0.0-0.3 [facility] Comment on above: Performed By: #### C OMID ####[facility] [address] [place] [id number]. Bhavani Barragan BAND % 5 % Normal 0-5 [facility] Comment on above: Performed By: #### C BCJERSON ####[facility] [address] [place] [address]Dr. Bhavani Barragan BASOM # 0.00 103/ul Normal 0.00-0.10 [facility] Comment on above: Performed By: #### C BCJERSON ####[facility] [address] [place] [address]Dr. Bhavani Barragan BASOM % 0.0 % Critically low 0.2-2.[address] [facility] Comment on above: Performed By: #### C BCMAN ####[facility] [address] [place] [address]Dr. Bhavani Barragan BLAST # Normal [facility] Comment on above: Performed By: #### C BCJERSON ####[facility] [address] [place] [address]Dr. Bhavani Barragan BLAST % Normal [facility] Comment on above: Performed By: #### C BCJERSON ####[facility] [address] [place] [address]Dr. Bhavani Barragan CORRECTED WBC Normal 4.0-11.0 [facility] Comment on above: Performed By: #### C BCJERSON ####[facility] [address] [place] [address]Dr. Bhavani Barragan EOS # 0.00 103/ul Normal 0.00-0.70 [facility] Comment on above: Performed By: #### C BCJERSON ####[facility] [address] [place] [address]Dr. Bhavani Barragan EOS% 0.0 % Critically low 0.9-7.[address] [facility] Comment on above: Performed By: #### C BCJERSON ####[facility] [address] [place] [address]Dr. Bhavani Barragan HCT 32.6 % Critically low 36.0-48.[address] [facility] Comment on above: Performed By: #### C BCJERSON ####[facility] [address] [place], [place] [address]Dr. Bhavani Barragan HGB 10.0 g/dl Critically low 12.0-16.0 [facility] Comment on above: Performed By: #### Jany ANNE ####[facility] [address]fp[address] [place] [id number]. Bhavani Barragan LYMPHM # 1.75 103/ul Normal 1.20-3.80 [facility] Comment on above: Performed By: #### Jany ANNE ####[facility] [address] [place] [id number]. Bhavani Barragan LYMPHM% 5.0 % Critically low 20.5-60.0 [facility] Comment on above: Performed By: #### Jany ANNE ####[facility] [address] [place] [address]Dr. Bhavani Barragan MCH 29.6 pg Normal 26.7-34.0 [facility] Comment on above: Performed By: #### Jany ANNE ####[facility] Ajlyiurkjp7914 [place] [address]Dr. Bhavani Barragan MCHC 30.7 g/dl Normal 29.9-35.2 [facility] Comment on above: Performed By: #### Jany ANNE ####[facility] Pvqqcfnlxw8508 [place] [address]Dr. Bhavani Barragan MCV 96.4 fL Normal 81.0-99.0 [facility] Comment on above: Performed By: #### Jany ANNE ####[facility] Uomlzzjwpv8461 [place] [address]Dr. Bhavani Barragan METAMYELOCYTE # Normal [facility] Comment on above: Performed By: #### Jany ANNE ####[facility] Ordxxafazu9334 [place] [id number]. Bhavani Barragan METAMYELOCYTE % Normal [facility] Comment on above: Performed By: #### Jany ANNE ####[facility] Dqwhkwjjbs5359 [place] [address]Dr. Bhavani Barragan MONOM# 0.70 103/ul Normal 0.30-0.80 [facility] Comment on above: Performed By: #### C OMID ####[facility] Xxbsftkuka4336 [place], [place] [address]Xy. Bhavani Barragan MONOM% 2.0 % Normal 1.7-12.0 [facility] Comment on above: Performed By: #### C OMID ####[facility] Varxthollt3795 [place], [place] [address]Lb. Bhavani Barragan MPV 9.8 fL Normal 9.5-13.5 [facility] Comment on above: Performed By: #### C BCJERSON ####[facility] Tpampswrit6511 [place], [place] [address]Ll. Bhavani Barragan MYELOCYTE # Normal [facility] Comment on above: Performed By: #### C OMID ####[facility] Iizqihicdr4705 [place] [id number]. Bhavani Barragan MYELOCYTE % Normal [facility] Comment on above: Performed By: #### C OMID ####[facility] Qnwuuwmnbk1664 [place] [id number]. Bhavani Barragan NRBC Normal [facility] Comment on above: Performed By: #### C OMID ####[facility] Hpoljsogcl9854 [place] [phone]. Bhavani Barragan PLT 382 103/ul Normal 150-450 [facility] Comment on above: Performed By: #### C OMID ####[facility] Rbohznxftm0801 [place] [id number]. Bhavani Barragan RBC 3.38 106/ul Critically low 4.20-5.40 [facility] Comment on above: Performed By: #### C OMID ####[facility] Klfcfegcbn1956 [place] [id number]. Bhavani Barragan RDW 17.7 % Critically high 11.0-15.0 [facility] Comment on above: Performed By: #### C OMID ####[facility] Ycvabuyzba4362 [place] [phone]. Bhavani Barragan SEG # 30.80 103/ul Critically high 1.40-6.50 [facility] Comment on above: Performed By: #### C ALICIAMAN ####[facility] Qyxqcqyvvm9370 [place] [phone]. Bhavani Barragan SEG % 88.0 % Critically high 43.0-75.0 [facility] Comment on above: Performed By: #### C ALICIAMAN ####[facility] Jtubcmdxdw4547 [place] [phone]. Bhavani Barragan WBC 35.0 103/ul Critically high 4.0-11.0 [facility] Comment on above: Performed By: #### C OMID ####[facility] Cewkaodson1322 [place] [phone]. Bhavani Barragan PROF 14(COMP METB)on 023 Albumin [Mass/Vol] 2.6 g/dL Critically low 3.4-5.0 [facility] Comment on above: Performed By: #### C MP, TSH ####[facility] Hpllowxrmf5719 [place] [address]Dr. Bhavani Barragan Albumin/Globulin [Mass ratio] 0.6 {ratio} Normal [facility] Comment on above: Performed By: #### C MP, TSH ####[facility] Fjdsifotco8443 [place] [address]Dr. Bhavani Barragan ALP [Catalytic activity/Vol] 117 U/L Critically high 46-116 [facility] Comment on above: Performed By: #### C MP, TSH ####[facility] Jrvigmjqmf2636 [place] [address]Dr. Bhavani Barragan ALT [Catalytic activity/Vol] 11 U/L Critically low 14-59 [facility] Comment on above: Performed By: #### C MP, TSH ####[facility] Vuaylomwvs2235 [place] [phone]. Bhavani Barragan Anion gap [Moles/Vol] 13.0 mmol/L Normal [facility] Comment on above: Performed By: #### C MP, TSH ####[facility] Lqbofsgxuo0972 [place] [phone]. Bhavani Barragan AST [Catalytic activity/Vol] 19 U/L Normal 15-37 [facility] Comment on above: Performed By: #### C MP, TSH ####[facility] Qxwzmupwcj9964 [place] [address]Dr. Bhavani Barragan Bilirubin [Mass/Vol] 0.4 mg/dL Normal 0.2-1.0 [facility] Comment on above: Performed By: #### C MP, TSH ####[facility] Nfwcnxgkab2576 [place] [address]Dr. Bhavani Laurel Calcium [Mass/Vol] 8.9 mg/dL Normal 8.5-10.1 [facility] Comment on above: Performed By: #### C MP, TSH ####[facility] Fzypmxwegr3825 [place] [address]Dr. Jayceeroxi Barragan Chloride [Moles/Vol] 103 mmol/L Normal 98-107 [facility] Comment on above: Performed By: #### C MP, TSH ####[facility] Ipyjfwxqbq68[address] [place], [place] [address]Dr. Jayceeroxi Barragan CO2 [Moles/Vol] 26.8 mmol/L Normal 21.0-32.0 [facility] Comment on above: Performed By: #### C MP, TSH ####[facility] Llsigsrenp401[address] [place], [place] [address]Dr. Bhavani Laurel Creatinine [Mass/Vol] 1.44 mg/dL Critically high 0.55-1.02 [facility] Comment on above: Performed By: #### C MP, TSH ####[facility] Epgqupntcn528[address] [place], [place] [address]Dr. Bhavani Laurel EGFR-AF MICRONESIAN 42 mL/min/1.73m2 Critically low >=60 [facility] Comment on above: Performed By: #### C MP, TSH ####[facility] Wkchhghakm86[address] [place], [place] [address]Dr. Bhavani Barragan EGFR-NON AF MICRONESIAN 35 mL/min/1.73m2 Critically low >=60 [facility] Comment on above: Performed By: #### C MP, TSH ####[facility] Bfqvlpamul499[address] [place], [place] [address]Dr. Bhavani Barragan Globulin (S) [Mass/Vol] 4.4 g/dL Normal [facility] Comment on above: Performed By: #### C MP, TSH ####[facility] Buvewsxepg0783 [place] [address]Dr. Bhavani Barragan Glucose [Mass/Vol] 90 mg/dL Normal 74-106 [facility] Comment on above: Performed By: #### C MP, TSH ####[facility] Osiilrjjkd1846 [place] [address]Dr. Bhavani Barragan Potassium [Moles/Vol] 4.8 mmol/L Normal 3.5-5.1 [facility] Comment on above: Performed By: #### C ALISTAIR, TSH ####[facility] Vcqwhexzdz44[address] [place], [place] [address]Dr. Bhavani Barragan Protein [Mass/Vol] 7.0 g/dL Normal 6.4-8.2 [facility] Comment on above: Performed By: #### C ALISTAIR, TSH ####[facility] Lrydpydvsx12[address] [place], [place] [address]Dr. Bhavani Barragan Sodium [Moles/Vol] 138 mmol/L Normal 136-145 [facility] Comment on above: Performed By: #### C ALISTAIR, TSH ####[facility] Tumvjwvwzv[address] [place], [place] [address]Dr. Bhavani Barragan Urea nitrogen [Mass/Vol] 32.0 mg/dL Critically high 7.0-18.0 [facility] Comment on above: Performed By: #### C ALISTAIR, TSH ####[facility] Vncrslvida98[address] [place], [place] [address]Dr. Bhavani Barragan Urea nitrogen/Creatinine [Mass ratio] 22.2 mg/mg Normal [facility] Comment on above: Performed By: #### C MP, TSH ####[facility] Rbompihfms200[address] [place], [place] [address]Dr. Bhavani Barragan TSHon 03-01-2023 TSH 3.630 uIU/mL Normal 0.358-3.740 [facility] Comment on above: Performed By: #### C ALISTAIR, TSH ####[facility] Jhkdatshsh2616 [place] [phone]. Bhavani Barragan CULTURE URINEon 02-09-2023 CULTURE URINE Normal [facility] Comment on above: Performed By: #### U RCX ####[facility] Ipmagbtanb3293 [place] [phone]. Bhavani Barragan CBC W MANUAL DIFFon 02-07-20 23 ANISOCYTOSIS 1+ Normal [facility] Comment on above: Performed By: #### C BCMAN ####[facility] Frucrlobql9675 [place] [address]Dr. Bhavani Barragan ATYPICAL LYMPH # Normal [facility] Comment on above: Performed By: #### C BCMAN ####[facility] Ombrrfozba[address] [place], [place] [address]Dr. Bhavani Barragan ATYPICAL LYMPH % Normal [facility] Comment on above: Performed By: #### C BCJERSON ####[facility] Xspeiofukh69[address] [place], [place] [address]Dr. Bhavani Barragan BAND # 1.2 103/ul Critically high 0.0-0.3 [facility] Comment on above: Performed By: #### C BCJERSON ####[facility] Zqvaijakdj7[address] [place], [place] [address]Dr. Bhavani Barragan BAND % 5 % Normal 0-5 [facility] Comment on above: Performed By: #### C BCMAN ####[facility] Cghdncgftc9121 [place] [address]Dr. Bhavani Barragan BASOM # 0.00 103/ul Normal 0.00-0.10 [facility] Comment on above: Performed By: #### C BCMAN ####[facility] Rstzayhrps9426 [place] [address]Dr. Bhavani Barragan BASOM % 0.0 % Critically low 0.2-2.[address] [facility] Comment on above: Performed By: #### C BCMAN ####[facility] Qrzeljxjfq5344 [place] [address]Dr. Bhavani Barragan BLAST # Normal [facility] Comment on above: Performed By: #### C BCMAN ####[facility] Dbyupqvrez2323 [place] [phone]. Bhavani Barragan BLAST % Normal [facility] Comment on above: Performed By: #### C OMID ####[facility] Hzvsfiezrt7746 [place] [phone]. Bhavani Barragan CORRECTED WBC Normal 4.0-11.0 [facility] Comment on above: Performed By: #### C OMID ####[facility] Raxcrtofjk1199 [place] [phone]. Bhavani Barragan EOS # 0.00 103/ul Normal 0.00-0.70 [facility] Comment on above: Performed By: #### C OMID ####[facility] Vpccnrbxim9640 [place] [address]Dr. Bhavani Barragan EOS% 0.0 % Critically low 0.9-7.[address] [facility] Comment on above: Performed By: #### C OMID ####[facility] Scrwedqdzy55[address] [place], [place] [address]Dr. Bhavani Barragan HCT 39.3 % Normal 36.0-48.0 [facility] Comment on above: Performed By: #### C OMID ####[facility] Avomzhkvap[address] [place], [place] [address]Dr. Bhavani Barragan HGB 12.6 g/dl Normal 12.0-16.0 [facility] Comment on above: Performed By: #### C OMID ####[facility] Zqelaotsjh925[address] [place], [place] [address]Dr. Bhavani Barragan LYMPHM # 2.11 103/ul Normal 1.20-3.80 [facility] Comment on above: Performed By: #### C OMID ####[facility] Fubzxqqqfe69[address] [place], [place] [address]Dr. Bhavani Barragan LYMPHM% 9.0 % Critically low 20.5-60.[address] [facility] Comment on above: Performed By: #### C OMID ####[facility] Czviwtwwux14[address] [place], [place] [address]Dr. Bhavani Barragan MCH 29.6 pg Normal 26.7-34.0 [facility] Comment on above: Performed By: #### C MOID ####[facility] Xupvjlqoli3352 [place] [phone]. Bhavani Barragan MCHC 32.1 g/dl Normal 29.9-35.2 [facility] Comment on above: Performed By: #### C OMDI ####[facility] Jtewmdqgri0986 [place] [phone]. Bhavani Barragan MCV 92.3 fL Normal 81.0-99.0 [facility] Comment on above: Performed By: #### C BCJERSON ####[facility] Mwnhjsnosv000[address] [place], [place] [address]Dr. Bhavani Barragan METAMYELOCYTE # Normal [facility] Comment on above: Performed By: #### C OMID ####[facility] Jjxrxgpumj02[address] [place], [place] [id number]. Bhavani Barragan METAMYELOCYTE % Normal [facility] Comment on above: Performed By: #### C OMID ####[facility] Iokkzechrt3794 [place] [phone]. Bhavani Barragan MONOM# 0.94 103/ul Critically high 0.30-0.80 [facility] Comment on above: Performed By: #### C OMID ####[facility] Zpgymkjobv1288 [place] [phone]. Bhavani Barragan MONOM% 4.0 % Normal 1.7-12.0 [facility] Comment on above: Performed By: #### C OMID ####[facility] Ocbvwjbens1299 [place] [phone]. Bhavani Barragan MPV 11.0 fL Normal 9.5-13.5 [facility] Comment on above: Performed By: #### C OMID ####[facility] Djpabnkcqr9522 [place] [phone]. Bhavani Barragan MYELOCYTE # Normal [facility] Comment on above: Performed By: #### C OMID ####[facility] Nvomsosidd[address] [place], [place] [address]Dr. Bhavani Barragan MYELOCYTE % Normal [facility] Comment on above: Performed By: #### C OMID ####[facility] Gdevjwlcis0787 [place] [phone]. Bhavani Barragan NRBC Normal [facility] Comment on above: Performed By: #### C OMID ####[facility] Xjrojhzayf5392 [place] [phone]. Bhavani Barragan PLT 198 103/ul Normal 150-450 [facility] Comment on above: Performed By: #### C OMID ####[facility] Smmiigjjwj0220 [place], [place] [address]Nk. Bhavani Barragan RBC 4.26 106/ul Normal 4.20-5.40 [facility] Comment on above: Performed By: #### C OMID ####[facility] Emgipkrzdc4954 [place] [phone]. Bhavani Barragan RDW 16.3 % Critically high 11.0-15.0 [facility] Comment on above: Performed By: #### C OMID ####[facility] Kjpolqirqe0542 [place] [phone]. Bhavani Barragan SEG # 19.19 103/ul Critically high 1.40-6.50 [facility] Comment on above: Performed By: #### C OMID ####[facility] Qefuynjoez5311 [place] [phone]. Bhavani Barragan SEG % 82.0 % Critically high 43.0-75.0 [facility] Comment on above: Performed By: #### C OMID ####[facility] Dnincqjapm0212 [place] [phone]. Bhavani Barragan WBC 23.4 103/ul Critically high 4.0-11.0 [facility] Comment on above: Performed By: #### C OMID ####[facility] Xqfobhqfmx3368 [place] [phone]. Bhavani Barragan CT LSPINE WO CONon 3 CT LSPINE WO CON Normal [facility] CT PELVIS WO CONon 3 CT PELVIS WO CON Normal [facility] CULTURE BLOODon 02-06-2023 Microscopic examination of blood, culture Culture Observations: NO GROWTH AT 5 DAYS. Normal The [facility] Comment on above: Performed By: #### B LDCX2 ####[facility] Nrtotlmtya8740 [place] [phone]. Bhavani Barragan Performed By: #### B LDCX1 ####[facility] Juejziexyi6633 [place] [address]Dr. Bhavani Barragan Covid-19 PCR (CVDTB)on 01-17 SARS-CoV-2 (COVID-19) RNA MATTHEW+probe Ql (Unsp spec) Not detected Normal NOT DETECTED [facility] Comment on above: Result Comment: When [...] for this test is supported by the [place] of Health and Human Service's declaration that [...] be used). Performed By: #### C VDTBH ####[facility] Ajiymhnjuj9908 [place] [phone]. Bhavani Barragan ER URINE PROFILEon 3 Bilirubin Ql (U) Negative Normal NEGATIVE [facility] Comment on above: Performed By: #### U MICRO, ERUR ####[facility] Zqlopwtgpw0046 [place] [phone]. Bhavani Barragan Clarity (U) SL CLOUDY Abnormal CLEAR [facility] Comment on above: Performed By: #### U MICRO, ERUR ####[facility] Pmutichbbr[address] [place], [place] [address]Dr. Bhavani Barragan Color (U) LT. YELLOW Normal YELLOW [facility] Comment on above: Performed By: #### U MICRO, ERUR ####[facility] Blwtcybion7[address] [place], [place] [address]Dr. Bhavani Barragan ERUAHD A micrscopic examination will be performed if indicated. Normal [facility] Comment on above: Performed By: #### U MICRO, ERUR ####[facility] Mbvgumikqn704[address] [place], [place] [address]Dr. Bhavani Barragan Glucose Ql (U) Negative Normal NEGATIVE [facility] Comment on above: Performed By: #### U MICRO, ERUR ####[facility] Dkigjinizr815[address] [place], [place] [address]Dr. Bhavani Barragan Hemoglobin Ql (U) TRACE-INTACT Abnormal NEGATIVE [facility] Comment on above: Performed By: #### U MICRO, ERUR ####[facility] Vraypegnxr209[address] [place], [place] [address]Dr. Bhavani Barragan Ketones Ql (U) Negative Normal NEGATIVE The [facility] Comment on above: Performed By: #### U MICRO, ERUR ####[facility] Znowruqhaz39[address] [place], [place] [address]Dr. Bhavani Barragan LEUKOCYTES SMALL Abnormal NEGATIVE [facility] Comment on above: Performed By: #### U MICRO, ERUR ####[facility] Dwcqnncxgv8[address] [place], [place] [address]Dr. Bhavani Barragan Nitrite Ql (U) Positive Abnormal NEGATIVE [facility] Comment on above: Performed By: #### U MICRO, ERUR ####[facility] Tbhhdjqdzq136[address] [place], [place] [address]Dr. Bhavani Barragan pH (U) 6.0 [pH] Normal 5-9 [facility] Comment on above: Performed By: #### U MICRO, ERUR ####[facility] Kwbibzxqir8908[address] [place], [place] [address]Dr. Bhavani Barragan Protein (U) [Mass/Vol] 30 mg/dL Abnormal NEGATIVE/ TRACE [facility] Comment on above: Performed By: #### U MICRO, ERUR ####[facility] Mvmaxjhfgz3594 [place] [address]Dr. Bhavani Barragan SPEC GRAVITY 1.020 Normal 1.005-<=1.02 5 [facility] Comment on above: Performed By: #### U MICRO, ERUR ####[facility] Fenleqlqty7171 [place] [address]Dr. Bhavani Barragan UR MICRO IND INDICATED Normal [facility] Comment on above: Performed By: #### U MICRO, ERUR ####[facility] Tjzjoegttn4547 [place] [address]Dr. Bhavani Barragan Urobilinogen Qn (U) 0.2 {Ridge'U}/dL Normal 0.2 - 1. 0 [facility] Comment on above: Performed By: #### U MICRO, ERUR ####[facility] Ykzffifbjy207[address] [place], [place] [address]Dr. Bhavani Barragan LACTATE/LACTIC ACIDon 2022 Lactate [Moles/Vol] 1.5 mmol/L Normal 0.4-2.0 [facility] Comment on above: Performed By: #### L ACT ####[facility] Adgivoflua4227[address] [place], [place] [address]Dr. Bhavani Barragan PROF CHEM 8 (BAS METB)on Anion gap [Moles/Vol] 14.7 mmol/L Normal [facility] Comment on above: Performed By: #### B MP ####[facility] Muntwfsdib8[address] [place], [place] [address]Dr. Bhavani Barragan Calcium [Mass/Vol] 8.2 mg/dL Critically low 8.5-10.1 [facility] Comment on above: Performed By: #### B MP ####[facility] Gfphdecgxf6[address] [place], [place] [address]Dr. Bhavani Barragan Chloride [Moles/Vol] 103 mmol/L Normal 98-107 [facility] Comment on above: Performed By: #### B MP ####[facility] Enixezptrb1340[address] [place], [place] [address]Dr. Bhavani Barragan CO2 [Moles/Vol] 22.4 mmol/L Normal 21.0-32.0 [facility] Comment on above: Performed By: #### B MP ####[facility] Rnqeqcaael6880 [place] [address]Dr. Bhavani Barragan Creatinine [Mass/Vol] 1.39 mg/dL Critically high 0.55-1.02 [facility] Comment on above: Performed By: #### B MP ####[facility] Bpfjyelmzn9116 [place] [address]Dr. Bhavani Barragan EGFR-AF MICRONESIAN 44 mL/min/1.73m2 Critically low >=60 [facility] Comment on above: Performed By: #### B MP ####[facility] Xhhridrxrx9381 [place] [address]Dr. Bhavani Barragan EGFR-NON AF MICRONESIAN 36 mL/min/1.73m2 Critically low >=60 [facility] Comment on above: Performed By: #### B MP ####[facility] Mrlxyvpowi15[address] [place], [place] [address]Dr. Bhavani Barragan Glucose [Mass/Vol] 161 mg/dL Critically high 74-106 T [facility] Comment on above: Performed By: #### B MP ####[facility] Ludznzmtma080[address] [place], [place] [address]Dr. Bhavani Laurel Potassium [Moles/Vol] 4.1 mmol/L Normal 3.5-5.1 [facility] Comment on above: Performed By: #### B MP ####[facility] Mjcyjnzfis1343 [place] [address]Dr. Bhavani Barragan Sodium [Moles/Vol] 136 mmol/L Normal 136-145 [facility] Comment on above: Performed By: #### B MP ####[facility] Uenppenjpj9475[address] [place], [place] [address]Dr. Bhavani Barragan Urea nitrogen [Mass/Vol] 23.0 mg/dL Critically high 7.0-18.0 [facility] Comment on above: Performed By: #### B MP ####[facility] Oqolnynbhr6387[address] [place], [place] [address]Dr. Bhavani Barragan Urea nitrogen/Creatinine [Mass ratio] 16.5 mg/mg Normal [facility] Comment on above: Performed By: #### B MP ####[facility] Qswfiqnhqp09[address] [place], [place] [address]Dr. Bhavain Barragan PROTIMEon 02-06-2023 INR Coag (PPP) [Relative time] 1.12 {INR} Normal [facility] Comment on above: Performed By: #### P TT, PT ####[facility] Azovcygdsy99[address] [place], [place] [address]Dr. Bhavani Barragan INR GUIDELINES SEE BELOW Normal The [facility] Comment on above: Result Comment: WALKER RED INR: 2.0 - 3.0 CONDITIONS NOT LISTED BELOW 2.5 - 3.5 FOR PROSTHETIC HEART VALVE REPLACEMENT 2.5 - 3.5 RECURRENT THROMBOSIS Performed By: #### P TT, PT ####[facility] Wvfudzdxkl87[address] [place], [place] [address]Dr. Bhavani Barragan PT Coag (PPP) [Time] 11.8 s Critically high 9.0-11.6 [facility] Comment on above: Performed By: #### P TT, PT ####[facility] Mxqfgkuafb66[address] [place], [place] [address]Dr. Bhavani Barragan PTTon 02-06-2023 aPTT Coag (Bld) [Time] 23.8 s Normal 22.3-36.2 [facility] Comment on above: Performed By: #### P TT, PT ####[facility] Csahpjehrk[address] [place], [place] [address]Dr. Bhavani Barragan URINE MICROSCOPIC ONLYon BACTERIA LARGE Abnormal NONE SEEN The [facility] Comment on above: Performed By: #### U MICRO, ERUR ####[facility] Zujoutjwtq3475[address] [place], [place] [address]Dr. Bhavani Barragan Bacteria identified Cx Nom (U) INDICATED Normal [facility] Comment on above: Performed By: #### U MICRO, ERUR ####[facility] Poakngdcja5[address] [place], [place] [address]Dr. Bhavani Barragan CAST NONE SEEN Normal NONE SEEN [facility] Comment on above: Performed By: #### U MICRO, ERUR ####[facility] Zynogteqwt7596 [place] [address]Dr. Bhavani Barragan Crystals LM Nom (Urine sed) NONE SEEN Normal NONE SEEN [facility] Comment on above: Performed By: #### U MICRO, ERUR ####[facility] Cgzwayslcv4251 [place] [phone]. Bhavani Barragan Epithelial cells LM Ql (Urine sed) RARE Normal NONE SEEN /RARE [facility] Comment on above: Performed By: #### U MICRO, ERUR ####[facility] Xmjzikfimv6319 [place] [address]Dr. Bhavani Barragan MUCOUS NONE SEEN Normal NONE SEEN [facility] Comment on above: Performed By: #### U MICRO, ERUR ####[facility] Xcdpjegaps3039 [place] [address]Dr. Bhavnai Barragan RBC 0-2 Normal 0-2 [facility] Comment on above: Performed By: #### U MICRO, ERUR ####[facility] Owksjbebqr0116 [place] [phone]. Bhavani Barragan WBC 10-20 Abnormal NONE SEEN [facility] Comment on above: Performed By: #### U MICRO, ERUR ####[facility] [address] [place] [address]Dr. Bhavani Barragan XR CHEST 1 Von 02-06-2023 XR CHEST 1 V Normal [facility] XR FEMUR RTon 02-06-2023 XR FEMUR RT Normal [facility] Orders Onlyon 01-22-2023 Orders Only [id number] Jennifer Tafoya 1940 F Date Provider Department Center 01/22/[address] Family History Problem Relation Age of Onset Diabetes Sister Diabetes Brother Diabetes Maternal Grandfather Family Status - Relation Status Age at Sister Brother Maternal Grandfather Normal [facility] CBC AUTO DIFFon 01-18-2023 BASO # 0.1 103/ul Normal 0.0-0.1 [facility] Comment on above: Performed By: #### C BC ####[facility] [address] [place] [id number]. Bhavani Barragan Basophils/100 WBC (Bld) 0.7 % Normal 0.2-2.0 [facility] Comment on above: Performed By: #### C BC ####[facility] [address] [place], [place] [id number]. Bhavani Barragan EO # 0.0 103/ul Normal 0.0-0.7 [facility] Comment on above: Performed By: #### C BC ####[facility] [address] [place] [id number]. Bhavani Barragan Eosinophils/100 WBC (Bld) 0.2 % Critically low 0.9-7.0 [facility] Comment on above: Performed By: #### C BC ####[facility] [address] [place], [place] [address]Dr. Bhavani Barragan Erythrocyte distribution width (RBC) [Ratio] 16.4 % Critically high 11.0-15.0 [facility] Comment on above: Performed By: #### C BC ####[facility] [address] [place], [place] [address]Dr. Bhavani Barragan Hematocrit (Bld) [Volume fraction] 41.5 % Normal 36.0-48.0 [facility] Comment on above: Performed By: #### C BC ####[facility] [address]nf[address] [place], [place] [address]Dr. Bhavani Braragan Hemoglobin (Bld) [Mass/Vol] 13.0 g/dL Normal 12.0-16.0 [facility] Comment on above: Performed By: #### C BC ####[facility] [address] [place], [place] [id number]. Bhavani Barragan IG # 0.24 10e3/ul Critically high 0.00-0.03 [facility] Comment on above: Performed By: #### C BC ####[facility] [address] [place], [place] [address]Dr. Bhavani Barragan IG % 1.3 % Critically high 0.0-0.5 [facility] Comment on above: Performed By: #### C BC ####[facility] [address] [place] [id number] Barragan LYMPH # 1.5 103/ul Normal 1.2-3.8 [facility] Comment on above: Performed By: #### C BC ####[facility] [address] [place] [phone]. Bhavani Barragan Lymphocytes/100 WBC (Bld) 8.1 % Critically low 20.5-60.0 [facility] Comment on above: Performed By: #### C BC ####[facility] [address] [place] [address]DrLydia Barragan MANUAL DIFF REQ NO Normal [facility] Comment on above: Performed By: #### C BC ####[facility] [address] [place] [id number] Barragan MCH (RBC) [Entitic mass] 28.9 pg Normal 26.7-34.0 [facility] Comment on above: Performed By: #### C BC ####[facility] [address] [place] [id number]. Bhavani Barragan MCHC (RBC) [Mass/Vol] 31.3 g/dL Normal 29.9-35.2 [facility] Comment on above: Performed By: #### C BC ####[facility] [address] [place] [id number] Barragan MCV (RBC) [Entitic vol] 92.2 fL Normal 81.0-99.0 [facility] Comment on above: Performed By: #### C BC ####[facility] [address] [place] [id number] Barragan MONO # 0.2 103/ul Critically low 0.3-0.8 [facility] Comment on above: Performed By: #### C BC ####[facility] [address] [place] [id number] Barragan Monocytes/100 WBC (Bld) 1.3 % Critically low 1.7-12.0 [facility] Comment on above: Performed By: #### C BC ####[facility] [address] [place] [address]Dr. Bhavani Barragan NEUT # 16.0 103/ul Critically high 1.4-6.5 [facility] Comment on above: Performed By: #### C BC ####[facility] [address] [place] [address]Dr. Bhavani Barragan Neutrophils/100 WBC (Bld) 88.4 % Critically high 43.0-75.0 [facility] Comment on above: Performed By: #### C BC ####[facility] [address] [place] [address]Dr. Bhavani Barragan Platelet mean volume (Bld) [Entitic vol] 12.1 fL Normal 9.5-13.5 [facility] Comment on above: Performed By: #### C BC ####[facility] [address] [place] [address]Dr. Bhavani Barragan PLT 170 103/ul Normal 150-450 [facility] Comment on above: Performed By: #### C BC ####[facility] [address] [place] [address]Dr. Bhavani Barragan RBC 4.50 106/ul Normal 4.20-5.40 [facility] Comment on above: Performed By: #### C BC ####[facility] [address] [place] [address]Dr. Bhavani Barragan WBC 18.1 103/ul Critically high 4.0-11.0 [facility] Comment on above: Performed By: #### C BC ####[facility] [address] [place] [phone]. Bhavani Barragan ECHOCARDIO M/2D COMPLETEon 0 01-18-2023 ECHOCARDIO M/2D COMPLETE Normal [facility] Office Visiton 12-25-2022 Follow-up visit [id number] Jennifer Tafoya 1940 F Date Provider Department Center 12/25/2022 TRACI LICEA [facility] Family History Problem Relation Age of Onset Diabetes Sister Diabetes Brother Diabetes Maternal Grandfather Family Status - Relation Status Age at Sister Brother Maternal Grandfather Level of Service:12811 LA OFFICE/OUTPATIENT ESTABLISHED MOD [facility] 30-39 MIN Reason for Visit and Comments: Atrial Fibrillation [80] Normal [facility] Endoscopy Reporton Endoscopy Report MR#: [id number] [facility] Pt. Name: María Elena Tafoya Surgery Date: 06/26/2022 Room #: 0 Date of : 1940 PROCEDURE NOTE ATTENDING: [...] P You Barillas M.D. Date Dict: 06/26/2022/11:02 A/You Barillas M.D. Date Trans: 06/27/2022 03:26 A/erik [id number] cc: Bennie Albright M.D. [address], [facility] [phone] [place] [facility] ABDOMEN 1 [facility] 06-26-2022 ABDOMEN 1 [facility] Department of Radiology [address] [place] [phone] ======== Patient Name: MARÍA ELENA TAFOYA : 1940 Sex: F Age: Race: White Pt. Location: OUTP Patient Status: O Ordered Date: 06/26/2022 11:10:00 AM Completed Date: 06/26/2022 11:41 AM Requesting Provider: YOU BARILLAS Attending Provider: YOU BARILLAS Report Copy To: Signs & Symptoms: Check Stent Position, NO History: Comments: Check Stent Position, NO Exam: ABDOMEN 1 ======== ABDOMEN 1 VW 06/26/2022 11:41 AM CLINICAL INDICATIONS: Check Stent [...] identified. Electronically signed: Roge Bah. Transcribed by: [email or web address], User Resident: Electronically Signed by: ROGE BAH @ 06/26/2022 11:52 AM Normal [facility] Comment on above: Order Comment: Check Stent Position, NO ERCPon 06-26-2022 ERCP [facility] Department of Radiology [address] [place] [phone] ======== Patient Name: MARÍA ELENA TAFOYA : 1940 Sex: F Age: Race: White Pt. 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 Electronically signed: FARSHAD SILVA. Transcribed by: [email or web address], User Resident: Electronically Signed by: FARSHAD SILVA @ 06/27/2022 09:15 AM Normal [facility] Comment on above: Order Comment: , [place] ointment Date: 06/26/2022 , Appointment Time: 101 , Appointment Date: 06/26/2022 , Appointment Time: 1014 , , , Ordering Provider - ELIU BRAUN MD , POC GLUCOSE LABon 06-26-2022 Glucose [Mass/Vol] 121 mg/dL High 70-100 [facility] Comment on above: Performed By: #### 8 5499 #### [facility] [address] [facility] [place] [address], [facility] Glucose [Mass/Vol] 116 mg/dL High 70-100 [facility] Comment on above: Performed By: #### 8 5499 #### [facility] [address] [facility] [place] [address], [facility] POC SARS COV2 IDon 2 SARS-CoV-2 (COVID-19) RNA MATTHEW+probe Ql (Unsp spec) Negative Normal NEGATIVE [facility] Comment on above: Result Comment: ID [...] Accreditation. Performed By: #### 8 5499 #### [facility] [address] [facility] [place] [address], [facility] XR MODIFIED BARIUM SWALLOWon 05-08-2022 XR MODIFIED BARIUM SWALLOW Normal [facility] POC GLUCOSE LABon 04-16-2022 Glucose [Mass/Vol] 103 mg/dL High 70-100 [facility] Comment on above: Performed By: #### 8 5499 ####[facility] [facility] [place] [address], [facility] POC GLUCOSE LABon 04-15-2022 Glucose [Mass/Vol] 112 mg/dL High 70-100 [facility] Comment on above: Performed By: #### 8 5499 #### [facility] [address] [facility] [place] [address], [facility] Glucose [Mass/Vol] 131 mg/dL High 70-100 [facility] Comment on above: Performed By: #### 8 5499 #### [facility] [address] [place] [address], [place] Glucose [Mass/Vol] 122 mg/dL High 70-100 [facility] Comment on above: Performed By: #### 5 0608 #### [facility] [address] [place] [address], [place] Glucose [Mass/Vol] 118 mg/dL High 70-100 [facility] Comment on above: Performed By: #### 8 5499 #### [facility] [address] [place] [address], [place] BASIC METABOLIC PANELon 05-2 Calcium [Mass/Vol] 8.1 mg/dL Low 8.6-10.3 [facility] Comment on above: Order Comment: No: D o not add to previous draw Performed By: #### 2 2706 #### [facility] [address] [place] [address], [place] Chloride [Moles/Vol] 104 mmol/L Normal 98-107 [facility] Comment on above: Order Comment: No: D o not add to previous draw Performed By: #### 2 2706 #### [facility] [address] [place] [address], [place] CO2 [Moles/Vol] 27 mmol/L Normal 21-31 The [facility] Comment on above: Order Comment: No: D o not add to previous draw Performed By: #### 2 2706 #### [facility] [address] [place] [address], [place] Creatinine [Mass/Vol] 1.34 mg/dL High 0.60-1.20 [facility] Comment on above: Order Comment: No: D o not add to previous draw Performed By: #### 2 2706 #### [facility] [address] [place] [address], [facility] eGFR- 46 ml/min/1.73sq m Abnormal >60 The [facility] Comment on above: Order Comment: No: D o not add to previous draw Result Comment: Calc ulation may not be valid for patients over 70 years Performed By: #### 2 2706 #### [facility] [address] [place] [address], [place] eGFR- non- 38 ml/min/1.73sq m Abnormal >60 [facility] Comment on above: Order Comment: No: D o not add to previous draw Result Comment: Calc ulation may not be valid for patients over 70 years Performed By: #### 2 2706 #### [facility] [address] [place] [address], [place] Glucose [Mass/Vol] 106 mg/dL High 70-100 [facility] Comment on above: Order Comment: No: D o not add to previous draw Performed By: #### 2 2706 #### [facility] [address] [place] [address], [place] Potassium [Moles/Vol] 4.9 mmol/L Normal 3.5-5.1 [facility] Comment on above: Order Comment: No: D o not add to previous draw Performed By: #### 2 2706 #### [facility] [address] [place] [address], [place] Sodium [Moles/Vol] 135 mmol/L Low 136-145 [facility] Comment on above: Order Comment: No: D o not add to previous draw Performed By: #### 2 2706 #### [facility] [address] [place] [address], [place] Urea nitrogen [Mass/Vol] 22 mg/dL Normal 7-25 [facility] Comment on above: Order Comment: No: D o not add to previous draw Performed By: #### 2 2706 #### [facility] [address] CBC COMPLETE BLOOD COUNTon 04-14-2022 Erythrocyte distribution width (RBC) [Ratio] 20.9 % High 11.5-15.0 [facility] Comment on above: Order Comment: No: D o not add to previous draw Performed By: #### 8 5499 #### [facility] [address] [place] [address], [facility] Hematocrit (Bld) [Volume fraction] 27.5 % Low 36.0-45.0 [facility] Comment on above: Order Comment: No: D o not add to previous draw Performed By: #### 8 5499 #### [facility] [address] [place] [address], [facility] Hemoglobin (Bld) [Mass/Vol] 8.5 g/dL Low 12.0-15.0 [facility] Comment on above: Order Comment: No: D o not add to previous draw Performed By: #### 8 5499 #### [facility] [address] [facility] [address], [facility] IMM PLATELET FRAC 10.2 % High 0.8-6.3 The [facility] Comment on above: Order Comment: No: D o not add to previous draw Performed By: #### 8 5499 #### [facility] [address] [facility] [place] [address], [facility] MCH (RBC) [Entitic mass] 31.1 pg Normal 27.0-33.0 [facility] Comment on above: Order Comment: No: D o not add to previous draw Performed By: #### 8 5499 #### [facility] [address] [facility] [place] [place] [address], [facility] MCHC (RBC) [Mass/Vol] 30.9 g/dL Low 32.0-35.0 [facility] Comment on above: Order Comment: No: D o not add to previous draw Performed By: #### 8 5499 #### [facility] [address] [place] [address], [facility] MCV (RBC) [Entitic vol] 100.7 fL High 82.0-98.0 [facility] Comment on above: Order Comment: No: D o not add to previous draw Performed By: #### 8 5499 #### [facility] [address] [place] [address], [facility] Nucleated RBC/100 WBC (Bld) [Ratio] 0 % Normal 0-0 [facility] Comment on above: Order Comment: No: D o not add to previous draw Performed By: #### 8 5499 #### [facility] [address] [place] [address], [facility] PLAT ESTIMATE Normal Normal [facility] Comment on above: Order Comment: No: D o not add to previous draw Result Comment: EDTA smear shows platelet clumping, see platelet estimate Performed By: #### 8 5499 #### [facility] [address] [place] [id number], [facility] RBC (Bld) [#/Vol] 2.73 10*6/uL Low 3.80-5.00 The [facility] Comment on above: Order Comment: No: D o not add to previous draw Performed By: #### 8 5499 #### [facility] [address] [place] [address], [facility] WBC (Bld) [#/Vol] 19.62 10*3/uL High 4.00-10.60 [facility] Comment on above: Order Comment: No: D o not add to previous draw Performed By: #### 8 5499 #### [facility] [address] [place] [id number], [facility] MAGNESIUM BLOODon 04-14-2022 Magnesium [Mass/Vol] 1.9 mg/dL Normal 1.9-2.7 [facility] Comment on above: Order Comment: No: D o not add to previous draw Performed By: #### 2 2706 #### [facility] [address] [place] [address], [place] POC GLUCOSE LABon 04-14-2022 Glucose [Mass/Vol] 117 mg/dL High 70-100 [facility] Comment on above: Performed By: #### 3 0313 #### [facility] [address] [place] [address], [place] Glucose [Mass/Vol] 119 mg/dL High 70-100 [facility] Comment on above: Performed By: #### 8 5499 #### [facility] [address] [place] [address], [place] Glucose [Mass/Vol] 113 mg/dL High 70-100 [facility] Comment on above: Performed By: #### 8 5499 #### [facility] [address] [place] [address], [place] Glucose [Mass/Vol] 112 mg/dL High 70-100 [facility] Comment on above: Performed By: #### 8 5499 #### [facility] [address] [place] [address], [place] BASIC METABOLIC PANELon 03-19 Calcium [Mass/Vol] 8.4 mg/dL Low 8.6-10.3 [facility] Comment on above: Order Comment: Bleed , altereed mental status Performed By: #### 4 1000, , 12122 ####[facility] [place] [address], [place] Chloride [Moles/Vol] 105 mmol/L Normal 98-107 [facility] Comment on above: Order Comment: Bleed , altereed mental status Performed By: #### 4 1000, 595[address], 03307 ####[facility] [place] [address], [place] CO2 [Moles/Vol] 24 mmol/L Normal 21-31 The [facility] Comment on above: Order Comment: Bleed , altereed mental status Performed By: #### 4 1000, , 19656 ####[facility] Creatinine [Mass/Vol] 1.31 mg/dL High 0.60-1.20 [facility] Comment on above: Order Comment: Bleed , altereed mental status Performed By: #### 4 1000, , 97601 ####[facility] [facility].[address] eGFR- 47 ml/min/1.73sq m Abnormal >60 The [facility] Comment on above: Order Comment: Bleed , altereed mental status Result Comment: Calc ulation may not be valid for patients over 70 years Performed By: #### 4 1000, , 13718 ####[facility] eGFR- non- 39 ml/min/1.73sq m Abnormal >60 The [facility] Comment on above: Order Comment: Bleed , altereed mental status Result Comment: Calc ulation may not be valid for patients over 70 years Performed By: #### 4 1000, , 14905 ####[facility] [facility] [place] [address], [facility] Glucose [Mass/Vol] 85 mg/dL Normal 70-[address] [facility] Comment on above: Order Comment: Bleed , altereed mental status Performed By: #### 4 1000, , 04009 ####[facility] [facility] [place] [address], [facility] Potassium [Moles/Vol] 5.2 mmol/L High 3.5-5.1 [facility] Comment on above: Order Comment: Bleed , altereed mental status Performed By: #### 4 1000, , 99102 ####[facility] [place] [address], [facility] Sodium [Moles/Vol] 137 mmol/L Normal 136-145 [facility] Comment on above: Order Comment: Bleed , altereed mental status Performed By: #### 4 1000, [address], 01415 ####[facility] Urea nitrogen [Mass/Vol] 21 mg/dL Normal 7-25 [facility] Comment on above: Order Comment: Bleed , altereed mental status Performed By: #### 4 1000, 03531, 39749 ####[facility] [facility] CBC COMPLETE BLOOD COUNTon 0 - Erythrocyte distribution width (RBC) [Ratio] 20.4 % High 11.5-15.0 [facility] Comment on above: Order Comment: No: D o not add to previous draw Performed By: #### 8 6569 #### [facility] [address] [place] [address], [facility] Hematocrit (Bld) [Volume fraction] 29.2 % Low 36.0-45.0 [facility] Comment on above: Order Comment: No: D o not add to previous draw Performed By: #### 8 1009 #### [facility] [address] [place] [address], [facility] Hemoglobin (Bld) [Mass/Vol] 9.0 g/dL Low 12.0-15.0 [facility] Comment on above: Order Comment: No: D o not add to previous draw Performed By: #### 8 4158 #### [facility] [address] [place] [address], [facility] MCH (RBC) [Entitic mass] 31.0 pg Normal 27.0-33.0 [facility] Comment on above: Order Comment: No: D o not add to previous draw Performed By: #### 8 8989 #### [facility] [address] [place] [id number], [facility] MCHC (RBC) [Mass/Vol] 30.8 g/dL Low 32.0-35.0 [facility] Comment on above: Order Comment: No: D o not add to previous draw Performed By: #### 8 5499 #### [facility] [address] [place] [address], [facility] MCV (RBC) [Entitic vol] 100.7 fL High 82.0-98.0 [facility] Comment on above: Order Comment: No: D o not add to previous draw Performed By: #### 8 5499 #### [facility] [address] [place] [id number], [facility] Nucleated RBC/100 WBC (Bld) [Ratio] 0 % Normal 0-0 [facility] Comment on above: Order Comment: No: D o not add to previous draw Performed By: #### 8 5499 #### [facility] [address] [place] [address], [facility] PLAT CNT 148 10*3/uL Low 150-400 The [facility] Comment on above: Order Comment: No: D o not add to previous draw Performed By: #### 8 5499 #### [facility] [address] [place] [id number], [facility] RBC (Bld) [#/Vol] 2.90 10*6/uL Low 3.80-5.00 [facility] Comment on above: Order Comment: No: D o not add to previous draw Performed By: #### 8 5499 #### [facility] [address] [place] [id number], [place] WBC (Bld) [#/Vol] 22.15 10*3/uL High 4.00-10.60 [facility] Comment on above: Order Comment: No: D o not add to previous draw Performed By: #### 8 5499 #### [facility] [address] [place] [address], [place] MAGNESIUM BLOODon 04-13-2022 Magnesium [Mass/Vol] 1.7 mg/dL Low 1.9-2.7 [facility] Comment on above: Order Comment: Bleed , altereed mental status Performed By: #### 4 1000, 66022, 42662 ####[facility] [place] [address], [place] PHOSPHORUS BLOODon Phosphate [Mass/Vol] 4.7 mg/dL Normal 2.5-5.0 [facility] Comment on above: Order Comment: Bleed , altereed mental status Performed By: #### 4 1000, 72573, 08363 ####[facility] [place] [address], [place] POC GLUCOSE LABon 04-13-2022 Glucose [Mass/Vol] 119 mg/dL High 70-100 [facility] Comment on above: Performed By: #### 8 5499 #### [facility] [address] [place] [address], [place] Glucose [Mass/Vol] 116 mg/dL High 70-100 [facility] Comment on above: Performed By: #### 8 5499 #### [facility] [address] [place] [address], [place] Glucose [Mass/Vol] 129 mg/dL High 70-100 [facility] Comment on above: Performed By: #### 8 5499 #### [facility] [address] [place] [address], [place] Glucose [Mass/Vol] 109 mg/dL High 70-100 [facility] Comment on above: Performed By: #### 8 5499 ####[facility] [place] [address], [place] POTASSIUM BLOODon 04-13-2022 Potassium [Moles/Vol] 4.7 mmol/L Normal 3.5-5.1 [facility] Comment on above: Order Comment: No: D o not add to previous draw Performed By: #### 2 1016 #### [facility] [address] [place] [address], [facility] BASIC METABOLIC PANELon 03-19 Calcium [Mass/Vol] 8.5 mg/dL Low 8.6-10.3 [facility] Comment on above: Order Comment: Bleed , altereed mental status Performed By: #### 1 0070, 78359, 71402 ####[facility] [place] [place] [address], [facility] Chloride [Moles/Vol] 106 mmol/L Normal 98-107 [facility] Comment on above: Order Comment: Bleed , altereed mental status Performed By: #### 1 0070, 24932, 22697 ####[facility] [place] [address], [facility] CO2 [Moles/Vol] 24 mmol/L Normal 21-31 The [facility] Comment on above: Order Comment: Bleed , altereed mental status Performed By: #### 1 0070, 86975, 15757 ####[facility] [facility] [place] [address], [facility] Creatinine [Mass/Vol] 1.34 mg/dL High 0.60-1.20 [facility] Comment on above: Order Comment: Bleed , altereed mental status Performed By: #### 1 0070, 68374, 84674 ####[facility] [place] [address], [facility] eGFR- 46 ml/min/1.73sq m Abnormal >60 The [facility] Comment on above: Order Comment: Bleed , altereed mental status Result Comment: Calc ulation may not be valid for patients over 70 years Performed By: #### 1 0070, 20271, 49341 ####[facility] [place] [address], [facility] eGFR- non- 38 ml/min/1.73sq m Abnormal >60 [facility] Comment on above: Order Comment: Bleed , altereed mental status Result Comment: Calc ulation may not be valid for patients over 70 years Performed By: #### 1 0, 06826, 57370 ####[facility] [place] [address], [place] Glucose [Mass/Vol] 83 mg/dL Normal 70-100 [facility] Comment on above: Order Comment: Bleed , altereed mental status Performed By: #### 1 0, 96781, 56800 ####[facility] [place] [address], [place] Potassium [Moles/Vol] 4.5 mmol/L Normal 3.5-5.1 [facility] Comment on above: Order Comment: Bleed , altereed mental status Performed By: #### 1 0, 31006, 39413 ####[facility] [place] [address], [place] Sodium [Moles/Vol] 137 mmol/L Normal 136-145 [facility] Comment on above: Order Comment: Bleed , altereed mental status Performed By: #### 1 0, 51223, 09701 ####[facility] [place] [address], [place] Urea nitrogen [Mass/Vol] 25 mg/dL Normal 7-25 [facility] Comment on above: Order Comment: Bleed , altereed mental status Performed By: #### 1 0, 61461, 67557 ####[facility] [place] [address], [place] CBC COMPLETE BLOOD COUNTon 0 04-12-2022 Erythrocyte distribution width (RBC) [Ratio] 19.9 % High 11.5-15.0 [facility] Comment on above: Order Comment: No: D o not add to previous draw Performed By: #### 8 5499 #### [facility] [address] [place] [address], [facility] Hematocrit (Bld) [Volume fraction] 28.9 % Low 36.0-45.0 [facility] Comment on above: Order Comment: No: D o not add to previous draw Performed By: #### 8 5499 #### [facility] [address] [place] [address], [facility] Hemoglobin (Bld) [Mass/Vol] 8.7 g/dL Low 12.0-15.0 [facility] Comment on above: Order Comment: No: D o not add to previous draw Performed By: #### 8 5499 #### [facility] [address] [place] [address], [facility] MCH (RBC) [Entitic mass] 30.1 pg Normal 27.0-33.0 [facility] Comment on above: Order Comment: No: D o not add to previous draw Performed By: #### 8 5499 #### [facility] [address] [facility] [place] [address], [facility] MCHC (RBC) [Mass/Vol] 30.1 g/dL Low 32.0-35.0 [facility] Comment on above: Order Comment: No: D o not add to previous draw Performed By: #### 8 5499 #### [facility] [address] [place] [id number], [facility] MCV (RBC) [Entitic vol] 100.0 fL High 82.0-98.0 [facility] Comment on above: Order Comment: No: D o not add to previous draw Performed By: #### 8 5499 #### [facility] [address] [place] [id number], [facility] Nucleated RBC/100 WBC (Bld) [Ratio] 0 % Normal 0-0 [facility] Comment on above: Order Comment: No: D o not add to previous draw Performed By: #### 8 5499 #### [facility] [address] [place] [address], [facility] PLAT CNT 186 10*3/uL Normal 150-400 The [facility] Comment on above: Order Comment: No: D o not add to previous draw Performed By: #### 8 5499 #### [facility] [address] [place] [address], [facility] RBC (Bld) [#/Vol] 2.89 10*6/uL Low 3.80-5.00 [facility] Comment on above: Order Comment: No: D o not add to previous draw Performed By: #### 8 5499 #### [facility] [address] [place] [address], [facility] WBC (Bld) [#/Vol] 21.99 10*3/uL High 4.00-10.60 [facility] Comment on above: Order Comment: No: D o not add to previous draw Performed By: #### 8 5499 #### [facility] [address] [place] [address], [facility] LIVER BATTERYon 04-12-2022 Albumin [Mass/Vol] 3.0 g/dL Low 3.5-5.[address] [facility] Comment on above: Order Comment: Bleed , altereed mental status Performed By: #### 1 0070, 54897, 65989 ####[facility] [facility] ALKALINE PHOSPH 87 IU/L Normal 34-104 [facility] Comment on above: Order Comment: Bleed , altereed mental status Performed By: #### 1 0070, 69208, 06002 ####[facility] ALT [Catalytic activity/Vol] 7 U/L Normal 7-52 [facility] Comment on above: Order Comment: Bleed , altereed mental status Performed By: #### 1 0, 84248, 96202 ####[facility] [place] [address], [facility] AST [Catalytic activity/Vol] 11 U/L Low 13-39 [facility] Comment on above: Order Comment: Bleed , altereed mental status Performed By: #### 1 0, 47121, 68078 ####[facility] [place] [address], [facility] Bilirubin [Mass/Vol] 0.8 mg/dL Normal 0.3-1.0 [facility] Comment on above: Order Comment: Bleed , altereed mental status Performed By: #### 1 0, , 04829 ####[facility] [place] [address], [facility] Bilirubin.direct [Mass/Vol] 0.2 mg/dL Normal 0.0-0.2 [facility] Comment on above: Order Comment: Bleed , altereed mental status Performed By: #### 1 0, , 87008 ####[facility] [place] [address], [facility] Protein [Mass/Vol] 6.0 g/dL Normal 6.0-8.3 [facility] Comment on above: Order Comment: Bleed , altereed mental status Performed By: #### 1 0, , 45368 ####[facility] [id number], [place] MAGNESIUM BLOODon 04-12-2022 Magnesium [Mass/Vol] 1.9 mg/dL Normal 1.9-2.7 [facility] Comment on above: Order Comment: Bleed , altereed mental status Performed By: #### 1 0, 46664, 19782 ####[facility] [place], [place] [address] [place] [address] Operative Reporton Operative Report MR#: [id number] # [facility] Pt. Name: María Elena Tafoya Room #: CCCI Discharge Date: Birthdate: 1940 OPERATIVE REPORT DATE OF SURGERY: 04/12/2022 SURGEON: Sharla Lizama MD Operative report: Laparoscopic cholecystectomy Location: [facility] main or Preoperative diagnosis: Gallstone pancreatitis Postoperative diagnosis: Gallstone pancreatitis Operation performed: Laparoscopic cholecystectomy Surgeon: Sharla Lizama MD Associate Account Executive: Dillon Thomas MD (resident pgy5) Estimated blood [...] Lizama MD Date Trans: 04/12/2022 05:18 P/ [id number] cc: Bennie Albright M.D. [address] [facility] Kate [facility] [id number] Normal [facility] Operative Report MR#: [id number] I [facility] Pt. Name: María Elena Tafoya Room #: [id number] Discharge Date: Birthdate: 1940 OPERATIVE REPORT DATE OF SURGERY: 04/12/2022 SURGEON: Sharla Lizama MD Operative report: Laparoscopic cholecystectomy Location: [facility] main or Preoperative diagnosis: Gallstone pancreatitis Postoperative diagnosis: Gallstone pancreatitis Operation performed: Laparoscopic cholecystectomy Surgeon: Sharla Lizama MD Associate Account Executive: Dillon Thomas MD (resident pgy5) Estimated blood [...] Lizama MD Date Trans: 04/12/2022 05:18 P/ [id number] cc: Bennie Albright M.D. [place] [id number] [facility] [address] Normal [facility] POC GLUCOSE LABon 04-12-2022 Glucose [Mass/Vol] 122 mg/dL High 70-100 [facility] Comment on above: Performed By: #### 8 5499 #### [facility] [address] [place] [address], [place] Glucose [Mass/Vol] 167 mg/dL High 70-100 [facility] Comment on above: Performed By: #### 8 5499 ####[facility] [place] [address], [place] Glucose [Mass/Vol] 105 mg/dL High 70-100 [facility] Comment on above: Performed By: #### 3 0313 #### [facility] [address] [place] [address], [place] Glucose [Mass/Vol] 111 mg/dL High 70-100 [facility] Comment on above: Performed By: #### 8 5499 ####[facility] [place] [address], [place] Glucose [Mass/Vol] 109 mg/dL High 70-100 [facility] Comment on above: Performed By: #### 3 0313 #### [facility] [address] [place] [address], [facility] POC SARS COV2 IDon 2 SARS-CoV-2 (COVID-19) RNA MATTHEW+probe Ql (Unsp spec) Negative Normal NEGATIVE [facility] Comment on above: Result Comment: ID [...] Accreditation. Performed By: #### 8 5499 #### [facility] [address] [place] [address], [facility] BASIC METABOLIC PANELon 05-2 Calcium [Mass/Vol] 8.3 mg/dL Low 8.6-10.[address] [facility] Comment on above: Order Comment: No: D o not add to previous draw Performed By: #### 8 5499 #### [facility] [address] [place] [address], [facility] Chloride [Moles/Vol] 106 mmol/L Normal 98-107 [facility] Comment on above: Order Comment: No: D o not add to previous draw Performed By: #### 8 5499 #### [facility] [address] [place] [address], [facility] CO2 [Moles/Vol] 23 mmol/L Normal 21-31 [facility] Comment on above: Order Comment: No: D o not add to previous draw Performed By: #### 8 5499 #### [facility] [address] [place] [id number], [facility] Creatinine [Mass/Vol] 1.21 mg/dL High 0.60-1.20 [facility] Comment on above: Order Comment: No: D o not add to previous draw Performed By: #### 8 5499 #### [facility] [address] [place] [address], [facility] eGFR- 51 ml/min/1.73sq m Abnormal >60 [facility] Comment on above: Order Comment: No: D o not add to previous draw Result Comment: Calc ulation may not be valid for patients over 70 years Performed By: #### 8 5499 #### [facility] [address] [place] [id number], [facility] eGFR- non- 42 ml/min/1.73sq m Abnormal >60 [facility] Comment on above: Order Comment: No: D o not add to previous draw Result Comment: Calc ulation may not be valid for patients over 70 years Performed By: #### 8 5499 #### [facility] [address] [place] [address], [place] Glucose [Mass/Vol] 91 mg/dL Normal 70-100 [facility] Comment on above: Order Comment: No: D o not add to previous draw Performed By: #### 8 5499 #### [facility] [address] [place] [address], [place] Potassium [Moles/Vol] 4.5 mmol/L Normal 3.5-5.1 [facility] Comment on above: Order Comment: No: D o not add to previous draw Performed By: #### 8 5499 #### [facility] [address] [place] [address], [place] Sodium [Moles/Vol] 138 mmol/L Normal 136-145 [facility] Comment on above: Order Comment: No: D o not add to previous draw Performed By: #### 8 5499 #### [facility] [address] [place] [address], [place] Urea nitrogen [Mass/Vol] 22 mg/dL Normal 7-25 [facility] Comment on above: Order Comment: No: D o not add to previous draw Performed By: #### 8 5499 #### [facility] [address] [place] [address], [place] CBC COMPLETE BLOOD COUNTon 0 - Erythrocyte distribution width (RBC) [Ratio] 19.6 % High 11.5-15.0 [facility] Comment on above: Order Comment: No: D o not add to previous draw Performed By: #### 5 0608 #### [facility] [address] [place] [address], [place] Hematocrit (Bld) [Volume fraction] 29.5 % Low 36.0-45.0 [facility] Comment on above: Order Comment: No: D o not add to previous draw Performed By: #### 5 0608 #### [facility] [address] [place] [address], [facility] Hemoglobin (Bld) [Mass/Vol] 9.2 g/dL Low 12.0-15.0 [facility] Comment on above: Order Comment: No: D o not add to previous draw Performed By: #### 5 0608 #### [facility] [address] [place] [address], [facility] MCH (RBC) [Entitic mass] 31.0 pg Normal 27.0-33.0 [facility] Comment on above: Order Comment: No: D o not add to previous draw Performed By: #### 5 0608 #### [facility] [address] [place] [address], [facility] MCHC (RBC) [Mass/Vol] 31.2 g/dL Low 32.0-35.0 [facility] Comment on above: Order Comment: No: D o not add to previous draw Performed By: #### 5 0608 #### [facility] [address] [facility] [place] [address], [facility] MCV (RBC) [Entitic vol] 99.3 fL High 82.0-98.0 [facility] Comment on above: Order Comment: No: D o not add to previous draw Performed By: #### 5 0608 #### [facility] [address] [facility] [place] [address], [facility] Nucleated RBC/100 WBC (Bld) [Ratio] 0 % Normal 0-0 [facility] Comment on above: Order Comment: No: D o not add to previous draw Performed By: #### 5 0608 #### [facility] [address] [place] [id number], [facility] PLAT CNT 277 10*3/uL Normal 150-400 [facility] Comment on above: Order Comment: No: D o not add to previous draw Performed By: #### 5 0608 #### [facility] [address] [place] [address], [place] RBC (Bld) [#/Vol] 2.97 10*6/uL Low 3.80-5.00 [facility] Comment on above: Order Comment: No: D o not add to previous draw Performed By: #### 5 0608 #### [facility] [address] [place] [address], [place] WBC (Bld) [#/Vol] 20.81 10*3/uL High 4.00-10.60 [facility] Comment on above: Order Comment: No: D o not add to previous draw Performed By: #### 5 0608 #### [facility] [address] [place] [address], [facility] LIVER BATTERYon 04-11-2022 Albumin [Mass/Vol] 3.1 g/dL Low 3.5-5.[address] [facility] Comment on above: Order Comment: No: D o not add to previous draw Performed By: #### 8 5499 #### [facility] [address] [place] [address], [facility] ALKALINE PHOSPH 92 IU/L Normal 34-104 [facility] Comment on above: Order Comment: No: D o not add to previous draw Performed By: #### 8 5499 #### [facility] [address] [place] [address], [place] ALT [Catalytic activity/Vol] 7 U/L Normal 7-52 [facility] Comment on above: Order Comment: No: D o not add to previous draw Performed By: #### 8 5499 #### [facility] [address] [place] [address], [place] AST [Catalytic activity/Vol] 9 U/L Low 13-39 [facility] Comment on above: Order Comment: No: D o not add to previous draw Performed By: #### 8 5499 #### [facility] [address] [place] [address], [place] Bilirubin [Mass/Vol] 0.8 mg/dL Normal 0.3-1.0 [facility] Comment on above: Order Comment: No: D o not add to previous draw Performed By: #### 8 5499 #### [facility] [address] [place] [address], [place] Bilirubin.direct [Mass/Vol] 0.3 mg/dL High 0.0-0.2 [facility] Comment on above: Order Comment: No: D o not add to previous draw Performed By: #### 8 5499 #### [facility] [address] [place] [address], [place] Protein [Mass/Vol] 5.7 g/dL Low 6.0-8.3 [facility] Comment on above: Order Comment: No: D o not add to previous draw Performed By: #### 8 5499 #### [facility] [address] [place] [address], [place] MAGNESIUM BLOODon 04-11-2022 Magnesium [Mass/Vol] 1.7 mg/dL Low 1.9-2.7 [facility] Comment on above: Order Comment: No: D o not add to previous draw Performed By: #### 8 5499 #### [facility] [address] [place] [address], [place] POC GLUCOSE LABon 04-11-2022 Glucose [Mass/Vol] 143 mg/dL High 70-100 [facility] Comment on above: Performed By: #### 8 5499 #### [facility] [address] [place] [address], [place] Glucose [Mass/Vol] 142 mg/dL High 70-100 [facility] Comment on above: Performed By: #### 8 5499 ####[facility] [place] [address], [place] Glucose [Mass/Vol] 125 mg/dL High 70-100 [facility] Comment on above: Performed By: #### 8 5499 #### [facility] [address] [place] [address], [place] Glucose [Mass/Vol] 113 mg/dL High 70-100 [facility] Comment on above: Performed By: #### 3 0313 #### [facility] [address] [place] [address], [place] URINE SMITH STAIN/EOSon EOSINOPHIL SMEAR NONE SEEN Normal NSN [facility] Comment on above: Order Comment: No: D o not add to previous draw [place] Normal [facility] Comment on above: Order Comment: No: D o not add to previous draw Result Comment: Test Performed by [employer] [address] [place] [id number] - Released 04/11/2022 22:02 BASIC METABOLIC PANELon 05-2 Calcium [Mass/Vol] 8.3 mg/dL Low 8.6-10.3 [facility] Comment on above: Order Comment: No: D o not add to previous draw Performed By: #### 8 5499 #### [facility] [address] [place] [address], [place] Chloride [Moles/Vol] 107 mmol/L Normal 98-107 [facility] Comment on above: Order Comment: No: D o not add to previous draw Performed By: #### 8 5499 #### [facility] [address] [place] [address], [place] CO2 [Moles/Vol] 23 mmol/L Normal 21-31 [facility] Comment on above: Order Comment: No: D o not add to previous draw Performed By: #### 8 5499 #### [facility] [address] [place] [address], [facility] Creatinine [Mass/Vol] 1.40 mg/dL High 0.60-1.20 [facility] Comment on above: Order Comment: No: D o not add to previous draw Performed By: #### 8 5499 #### [facility] [address] [place] [address], [facility] eGFR- 44 ml/min/1.73sq m Abnormal >60 [facility] Comment on above: Order Comment: No: D o not add to previous draw Result Comment: Calc ulation may not be valid for patients over 70 years Performed By: #### 8 5499 #### [facility] [address] [place] [address], [facility] eGFR- non- 36 ml/min/1.73sq m Abnormal >60 [facility] Comment on above: Order Comment: No: D o not add to previous draw Result Comment: Calc ulation may not be valid for patients over 70 years Performed By: #### 8 5499 #### [facility] [address] [place] [address], [place] Glucose [Mass/Vol] 101 mg/dL High 70-100 [facility] Comment on above: Order Comment: No: D o not add to previous draw Performed By: #### 8 5499 #### [facility] [address] [place] [address], [place] Potassium [Moles/Vol] 4.1 mmol/L Normal 3.5-5.1 [facility] Comment on above: Order Comment: No: D o not add to previous draw Performed By: #### 8 5499 #### [facility] [address] [place] [address], [place] Sodium [Moles/Vol] 138 mmol/L Normal 136-145 [facility] Comment on above: Order Comment: No: D o not add to previous draw Performed By: #### 8 5499 #### [facility] [address] [place] [address], [facility] Urea nitrogen [Mass/Vol] 25 mg/dL Normal 7-25 [facility] Comment on above: Order Comment: No: D o not add to previous draw Performed By: #### 8 5499 #### [facility] [address] CBC COMPLETE BLOOD COUNTon 0 - Erythrocyte distribution width (RBC) [Ratio] 19.9 % High 11.5-15.0 [facility] Comment on above: Order Comment: No: D o not add to previous draw Performed By: #### 5 0608 #### [facility] [address] [place] [address], [facility] Hematocrit (Bld) [Volume fraction] 29.1 % Low 36.0-45.0 [facility] Comment on above: Order Comment: No: D o not add to previous draw Performed By: #### 5 0608 #### [facility] [address] Hemoglobin (Bld) [Mass/Vol] 9.1 g/dL Low 12.0-15.0 [facility] Comment on above: Order Comment: No: D o not add to previous draw Performed By: #### 5 0608 #### [facility] [address] [place] [address], [facility] MCH (RBC) [Entitic mass] 30.6 pg Normal 27.0-33.0 [facility] Comment on above: Order Comment: No: D o not add to previous draw Performed By: #### 5 0608 #### [facility] [address] [place] [address], [facility] MCHC (RBC) [Mass/Vol] 31.3 g/dL Low 32.0-35.0 [facility] Comment on above: Order Comment: No: D o not add to previous draw Performed By: #### 5 0608 #### [facility] [address] [place] [address], [facility] MCV (RBC) [Entitic vol] 98.0 fL Normal 82.0-98.0 [facility] Comment on above: Order Comment: No: D o not add to previous draw Performed By: #### 5 0608 #### [facility] [address] [place] [address], [facility] Nucleated RBC/100 WBC (Bld) [Ratio] 0 % Normal 0-0 [facility] Comment on above: Order Comment: No: D o not add to previous draw Performed By: #### 5 0608 #### [facility] [address] [place] [address], [facility] PLAT CNT 281 10*3/uL Normal 150-400 [facility] Comment on above: Order Comment: No: D o not add to previous draw Performed By: #### 5 0608 #### [facility] [address] [facility] [place] [address], [facility] RBC (Bld) [#/Vol] 2.97 10*6/uL Low 3.80-5.00 [facility] Comment on above: Order Comment: No: D o not add to previous draw Performed By: #### 5 0608 #### [facility] [address] [facility] [place] [place] [address], [facility] WBC (Bld) [#/Vol] 19.64 10*3/uL High 4.00-10.60 [facility] Comment on above: Order Comment: No: D o not add to previous draw Performed By: #### 5 0608 #### [facility] [address] [place] [id number], [facility] MAGNESIUM BLOODon 04-10-2022 Magnesium [Mass/Vol] 1.6 mg/dL Low 1.9-2.7 [facility] Comment on above: Order Comment: No: D o not add to previous draw Performed By: #### 8 [id number] #### [facility] [facility] [address] [place] [address], [place] POC GLUCOSE LABon 04-10-2022 Glucose [Mass/Vol] 154 mg/dL High 70-100 [facility] Comment on above: Performed By: #### 8 [id number] #### [facility] [address] [place] [address], [place] Glucose [Mass/Vol] 120 mg/dL High 70-100 [facility] Comment on above: Performed By: #### 3 0313 #### [facility] [address] [place] [address], [place] Glucose [Mass/Vol] 131 mg/dL High 70-100 [facility] Comment on above: Performed By: #### 8 [id number] ####[facility] [place] [address], [place] Glucose [Mass/Vol] 114 mg/dL High 70-100 [facility] Comment on above: Performed By: #### 8 [id number] #### [facility] [address] [place] [address], [place] BASIC METABOLIC PANELon 03-19 Calcium [Mass/Vol] 8.7 mg/dL Normal 8.6-10.3 [facility] Comment on above: Order Comment: No: D o not add to previous draw Performed By: #### 8 [id number] #### [facility] [address] [place] [address], [place] Chloride [Moles/Vol] 104 mmol/L Normal 98-107 [facility] Comment on above: Order Comment: No: D o not add to previous draw Performed By: #### 8 [id number] #### [facility] [address] [place] [address], [place] CO2 [Moles/Vol] 24 mmol/L Normal 21-31 [facility] Comment on above: Order Comment: No: D o not add to previous draw Performed By: #### 8 [id number] #### [facility] [address] [place] [address], [facility] Creatinine [Mass/Vol] 1.29 mg/dL High 0.60-1.20 [facility] Comment on above: Order Comment: No: D o not add to previous draw Performed By: #### 8 [id number] #### [facility] [address] [place] [address], [facility] eGFR- 48 ml/min/1.73sq m Abnormal >60 [facility] Comment on above: Order Comment: No: D o not add to previous draw Result Comment: Calc ulation may not be valid for patients over 70 years Performed By: #### 8 [id number] #### [facility] [address] [place] [address], [facility] eGFR- non- 39 ml/min/1.73sq m Abnormal >60 [facility] Comment on above: Order Comment: No: D o not add to previous draw Result Comment: Calc ulation may not be valid for patients over 70 years Performed By: #### 8 [id number] #### [facility] [address] [place] [address], [place] Glucose [Mass/Vol] 90 mg/dL Normal 70-[address] [facility] Comment on above: Order Comment: No: D o not add to previous draw Performed By: #### 8 [id number] #### [facility] [address] [place] [address], [place] Potassium [Moles/Vol] 4.3 mmol/L Normal 3.5-5.1 [facility] Comment on above: Order Comment: No: D o not add to previous draw Performed By: #### 8 [id number] #### [facility] [address] [place] [address], [place] Sodium [Moles/Vol] 137 mmol/L Normal 136-145 [facility] Comment on above: Order Comment: No: D o not add to previous draw Performed By: #### 8 [id number] #### [facility] [address] [place] [address], [place] Urea nitrogen [Mass/Vol] 16 mg/dL Normal 7-25 [facility] Comment on above: Order Comment: No: D o not add to previous draw Performed By: #### 8 [id number] #### [facility] [address] [place] [address], [facility] CBC COMPLETE BLOOD COUNTon - Erythrocyte distribution width (RBC) [Ratio] 19.4 % High 11.5-15.0 [facility] Comment on above: Order Comment: No: D o not add to previous draw Performed By: #### 8 [id number] #### [facility] [address] [place] [id number], [facility] Hematocrit (Bld) [Volume fraction] 29.9 % Low 36.0-45.0 [facility] Comment on above: Order Comment: No: D o not add to previous draw Performed By: #### 8 [id number] #### [facility] [address] [place] [address], [place] Hemoglobin (Bld) [Mass/Vol] 9.4 g/dL Low 12.0-15.0 [facility] Comment on above: Order Comment: No: D o not add to previous draw Performed By: #### 8 [id number] #### [facility] [address] [place] [address], [place] MCH (RBC) [Entitic mass] 30.4 pg Normal 27.0-33.0 [facility] Comment on above: Order Comment: No: D o not add to previous draw Performed By: #### 8 [id number] #### [facility] [address] [place] MCHC (RBC) [Mass/Vol] 31.4 g/dL Low 32.0-35.0 [facility] Comment on above: Order Comment: No: D o not add to previous draw Performed By: #### 8 [id number] #### [facility] [address] [place] [id number], [facility] MCV (RBC) [Entitic vol] 96.8 fL Normal 82.0-98.0 [facility] Comment on above: Order Comment: No: D o not add to previous draw Performed By: #### 8 [id number] #### [facility] [address] [place] [address], [facility] Nucleated RBC/100 WBC (Bld) [Ratio] 0 % Normal 0-0 [facility] Comment on above: Order Comment: No: D o not add to previous draw Performed By: #### 8 [id number] #### [facility] [address] [place] [address], [facility] PLAT CNT 325 10*3/uL Normal 150-400 [facility] Comment on above: Order Comment: No: D o not add to previous draw Performed By: #### 8 [id number] #### [facility] [address] [place] [address], [facility] RBC (Bld) [#/Vol] 3.09 10*6/uL Low 3.80-5.00 [facility] Comment on above: Order Comment: No: D o not add to previous draw Performed By: #### 8 [id number] #### [facility] [address] [place] [id number], [place] WBC (Bld) [#/Vol] 21.91 10*3/uL High 4.00-10.60 [facility] Comment on above: Order Comment: No: D o not add to previous draw Performed By: #### 8 [id number] #### [facility] [address] [place] [id number], [facility] CREATININE URINE RANDOMon 05 -23-2022 Creatinine (U) [Mass/Vol] 40.0 mg/dL Normal [facility] Comment on above: Order Comment: The A ptima SARS-CoV-2 assay is a nucleic acid amplification test intended for the qualitative detection of RNA from SARS-CoV-2 isolated and purified from nasopharyngeal (LUNCH COOK),oropharyngeal (OP), nasal swab, sputum, and bronchoalveolar lavage (BAL) specimens from patients with signs and symptoms of infection who are suspected of COVID-19. Results are for the identification of SARS-CoV-2 RNA. The SARS-CoV-2 RNA is generally detectable during the acute phase of infection. The Aptima SARS-CoV-2 Assay on the Sleep.FM and Sleep.FM Fusion system is intended for use by laboratory personnel specifically instructed and trained in the operation of the Harmony and Sleep.FM Fusion system. The Aptima SARS-CoV-2 assay is [...] specimens Performed By: #### 3 [id number] #### [facility] [address] [place] [address], [facility] MAGNESIUM BLOODon 04-09-2022 Magnesium [Mass/Vol] 1.9 mg/dL Normal 1.9-2.7 [facility] Comment on above: Order Comment: No: D o not add to previous draw Performed By: #### 8 [id number] #### [facility] [address] [place] [address], [facility] OSMOLALITY URINEon OSMOLALITY 317 mOsm/kg Normal 50-1400 [facility] Comment on above: Order Comment: The A ptima SARS-CoV-2 assay is a nucleic acid amplification test intended for the qualitative detection of RNA from SARS-CoV-2 isolated and purified from nasopharyngeal (LUNCH COOK),oropharyngeal (OP), nasal swab, sputum, and bronchoalveolar lavage (BAL) specimens from patients with signs and symptoms of infection who are suspected of COVID-19. Results are for the identification of SARS-CoV-2 RNA. The SARS-CoV-2 RNA is generally detectable during the acute phase of infection. The Aptima SARS-CoV-2 Assay on the Sleep.FM and Sleep.FM Fusion system is intended for use by laboratory personnel specifically instructed and trained in the operation of the Harmony and Harmony Fusion system. The Aptima SARS-CoV-2 assay is [...] information. Performed By: #### 3 [id number] #### [facility] [address] [place] [address], [facility] POC GLUCOSE LABon 04-09-2022 Glucose [Mass/Vol] 159 mg/dL High 70-100 [facility] Comment on above: Performed By: #### 8 [id number] #### [facility] [address] [place] [address], [place] Glucose [Mass/Vol] 141 mg/dL High 70-100 [facility] Comment on above: Performed By: #### 8 [id number] #### [facility] [address] [place] [address], [place] Glucose [Mass/Vol] 337 mg/dL High 70-100 [facility] Comment on above: Performed By: #### 8 [id number] #### [facility] [address] [place] [address], [place] Glucose [Mass/Vol] 113 mg/dL High 70-100 [facility] Comment on above: Order Comment: NOTE: Result Checked Performed By: #### 3 0313 #### [facility] [address] [facility] [place] [address], [facility] SODIUM URINE RANDOMon 2021 Sodium (U) [Moles/Vol] 105 mmol/L Normal [facility] Comment on above: Order Comment: The A ptima SARS-CoV-2 assay is a nucleic acid amplification test intended for the qualitative detection of RNA from SARS-CoV-2 isolated and purified from nasopharyngeal (LUNCH COOK),oropharyngeal (OP), nasal swab, sputum, and bronchoalveolar lavage (BAL) specimens from patients with signs and symptoms of infection who are suspected of COVID-19. Results are for the identification of SARS-CoV-2 RNA. The SARS-CoV-2 RNA is generally detectable during the acute phase of infection. The Aptima SARS-CoV-2 Assay on the Sleep.FM and Sleep.FM Fusion system is intended for use by laboratory personnel specifically instructed and trained in the operation of the Harmony and Sleep.FM Fusion system. The Aptima SARS-CoV-2 assay is [...] specimens Performed By: #### 3 [id number] #### [facility] [address] [facility] [place] [address], [facility] UA,MICROSCOPIC REQUIREDon Appearance (U) CLEAR Normal CLEAR [facility] Comment on above: Order Comment: No: D o not add to previous draw Performed By: #### 8 [id number] #### [facility] [address] [facility] [place] [address], [facility] Bilirubin Ql (U) Negative Normal NEGATIVE [facility] Comment on above: Order Comment: No: D o not add to previous draw Performed By: #### 8 [id number] #### [facility] [address] [place] [address], [place] BUDDING YEAST FEW Abnormal NONE SEEN [facility] Comment on above: Order Comment: No: D o not add to previous draw Performed By: #### 8 [id number] #### [facility] [address] [place] [address], [place] Color (U) YELLOW Normal YELLOW [facility] Comment on above: Order Comment: No: D o not add to previous draw Performed By: #### 8 [id number] #### [facility] [address] [place] [address], [place] EPIS NONE SEEN Normal FEW,OCC,NONE SEEN [facility] Comment on above: Order Comment: No: D o not add to previous draw Performed By: #### 8 [id number] #### [facility] [address] [place] [address], [place] Glucose Ql (U) Negative Normal NEGATIVE The [facility] Comment on above: Order Comment: No: D o not add to previous draw Performed By: #### 8 [id number] #### [facility] [address] [place] [address], [place] Hemoglobin Ql (U) SMALL Abnormal NEGATIVE [facility] Comment on above: Order Comment: No: D o not add to previous draw Performed By: #### 8 [id number] #### [facility] [address] [place] [address], [place] KETONE Negative Normal NEGATIVE [facility] Comment on above: Order Comment: No: D o not add to previous draw Performed By: #### 8 [id number] #### [facility] [address] [place] [address], [place] LEUK LUIS ANTONIO Negative Normal NEGATIVE [facility] Comment on above: Order Comment: No: D o not add to previous draw Performed By: #### 8 [id number] #### [facility] [address] [facility] [place] [place] [address], [facility] Nitrite Ql (U) Negative Normal NEGATIVE The [facility] Comment on above: Order Comment: No: D o not add to previous draw Performed By: #### 8 [id number] #### [facility] [address] [facility] [place] [address], [facility] pH (U) 7.0 [pH] Normal 5.0-8.0 [facility] Comment on above: Order Comment: No: D o not add to previous draw Performed By: #### 8 [id number] #### [facility] [address] [place] [address], [facility] Protein Ql (U) Negative Normal NEGATIVE The [facility] Comment on above: Order Comment: No: D o not add to previous draw Performed By: #### 8 [id number] #### [facility] [address] [facility] [place] [address], [facility] RBC 0-2 Abnormal NONE SEEN [facility] Comment on above: Order Comment: No: D o not add to previous draw Performed By: #### 8 [id number] #### [facility] [address] SPEC GRAV 1.008 Low 1.015-1.020 [facility] Comment on above: Order Comment: No: D o not add to previous draw Performed By: #### 8 [id number] #### [facility] [address] [place] [address], [facility] WBC UA NONE SEEN Normal NONE SEEN [facility] Comment on above: Order Comment: No: D o not add to previous draw Performed By: #### 8 [id number] #### [facility] [address] *BLOOD CULTUREon 04-08-2022 *BLOOD CULTURE Clinical Report: (D) Specimen: BLOOD CULTURE Collected: 04/08/2022 18:50 Status: Final Last Updated: 04/14/2022 06:21 CULT RES (Final) No Growth Day 5 Normal [facility] Comment on above: Performed By: #### 3 0313 #### [facility] [address] [place] [address], [facility] *BLOOD CULTURE Clinical Report: (D) Specimen: BLOOD CULTURE Collected: 04/08/2022 15:33 Status: Final Last Updated: 04/14/2022 06:21 (1) Per denisha Fernandez.labs to be drawn at three CULT RES (Final) No Growth Day 5 Normal [facility] Comment on above: Order Comment: No: D o not add to previous draw Performed By: #### 5 0608 #### [facility] [address] [facility] [place] [address], [facility] BASIC METABOLIC PANELon 03-19 Calcium [Mass/Vol] 8.9 mg/dL Normal 8.6-10.[address] [facility] Comment on above: Order Comment: No: D o not add to previous draw Performed By: #### 2 2706 #### [facility] [address] [place] [address], [place] Chloride [Moles/Vol] 105 mmol/L Normal 98-107 [facility] Comment on above: Order Comment: No: D o not add to previous draw Performed By: #### 2 2706 #### [facility] [address] [place] [address], [place] CO2 [Moles/Vol] 24 mmol/L Normal 21-31 [facility] Comment on above: Order Comment: No: D o not add to previous draw Performed By: #### 2 2706 #### [facility] [address] [place] [address], [place] Creatinine [Mass/Vol] 1.03 mg/dL Normal 0.60-1.20 [facility] Comment on above: Order Comment: No: D o not add to previous draw Performed By: #### 2 2706 #### [facility] [address] [place] [address], [place] eGFR- non- 51 ml/min/1.73sq m Abnormal >60 [facility] Comment on above: Order Comment: No: D o not add to previous draw Result Comment: Calc ulation may not be valid for patients over 70 years Performed By: #### 2 2706 #### [facility] [address] [place] [address], [place] GFR/1.73 sq M.predicted among blacks MDRD (S/P/Bld) [Vol rate/Area] mL/min/{1.73_m2} Normal >60 [facility] Comment on above: Order Comment: No: D o not add to previous draw Result Comment: Calc ulation may not be valid for patients over 70 years Performed By: #### 2 2706 #### [facility] [address] [place] [address], [place] Glucose [Mass/Vol] 113 mg/dL High 70-100 [facility] Comment on above: Order Comment: No: D o not add to previous draw Performed By: #### 2 2706 #### [facility] [address] [place] [address], [place] Potassium [Moles/Vol] 4.1 mmol/L Normal 3.5-5.1 [facility] Comment on above: Order Comment: No: D o not add to previous draw Performed By: #### 2 2706 #### [facility] [address] [place] [address], [place] Sodium [Moles/Vol] 136 mmol/L Normal 136-145 [facility] Comment on above: Order Comment: No: D o not add to previous draw Performed By: #### 2 2706 #### [facility] [address] [place] [address], [place] Urea nitrogen [Mass/Vol] 11 mg/dL Normal 7-25 [facility] Comment on above: Order Comment: No: D o not add to previous draw Performed By: #### 2 2706 #### [facility] [address] [place] [address], [facility] CBC W/DIFFon 04-08-2022 ABS IMM GRANS 0.4 10*3/uL High 0.0-0.2 The [facility] Comment on above: Performed By: #### 8 [id number] #### [facility] [address] [facility] [address], [facility] ABS NEUTROPHILS 24.5 10*3/uL High 1.6-7.6 [facility] Comment on above: Performed By: #### 8 [id number] #### [facility] [address] [facility] [address], [facility] ANISO Moderate Normal [facility] Comment on above: Performed By: #### 8 [id number] #### [facility] [address] [facility] [address], [facility] Basophils (Bld) [#/Vol] 0.2 10*3/uL Normal 0.0-0.2 [facility] Comment on above: Performed By: #### 8 [id number] #### [facility] [address] [facility] [place] [address], [facility] Basophils/100 WBC (Bld) 0.6 % Normal 0.0-1.0 [facility] Comment on above: Performed By: #### 8 [id number] #### [facility] [address] [facility] [address], [facility] Eosinophils (Bld) [#/Vol] 0.0 10*3/uL Normal 0.0-0.5 [facility] Comment on above: Performed By: #### 8 [id number] #### [facility] [address] [place] [address], [facility] Eosinophils/100 WBC (Bld) 0.1 % Normal 0.0-6.0 [facility] Comment on above: Performed By: #### 8 [id number] #### [facility] [address] [facility] [address] Erythrocyte distribution width (RBC) [Ratio] 19.1 % High 11.5-15.0 [facility] Comment on above: Performed By: #### 8 [id number] #### [facility] [address] [facility] [place] [address], [facility] Hematocrit (Bld) [Volume fraction] 32.3 % Low 36.0-45.0 [facility] Comment on above: Performed By: #### 8 [id number] #### [facility] [address] [facility] [address], [facility] Hemoglobin (Bld) [Mass/Vol] 10.1 g/dL Low 12.0-15.0 [facility] Comment on above: Performed By: #### 8 [id number] #### [facility] [address] [facility]. [address] IMMATURE GRANS 1.5 % High 0.0-1.0 The [facility] Comment on above: Performed By: #### 8 [id number] #### [facility] [address] [facility] [address], [facility] Lymphocytes (Bld) [#/Vol] 1.5 10*3/uL Normal 1.2-4.0 [facility] Comment on above: Performed By: #### 8 [id number] #### [facility] [address] [facility] [address], [facility] Lymphocytes/100 WBC (Bld) 5.5 % Low 20.0-45.0 [facility] Comment on above: Performed By: #### 8 [id number] #### [facility] [address] [place] [address], [facility] MCH (RBC) [Entitic mass] 30.4 pg Normal 27.0-33.0 [facility] Comment on above: Performed By: #### 8 [id number] #### [facility] [address] [facility]. [address] MCHC (RBC) [Mass/Vol] 31.3 g/dL Low 32.0-35.0 [facility] Comment on above: Performed By: #### 8 [id number] #### [facility] [address] [facility] [address], [facility] MCV (RBC) [Entitic vol] 97.3 fL Normal 82.0-98.0 [facility] Comment on above: Performed By: #### 8 [id number] #### [facility] [address] [place] [address], [facility] Monocytes (Bld) [#/Vol] 0.6 10*3/uL Normal 0.1-1.0 [facility] Comment on above: Performed By: #### 8 [id number] #### [facility] [address] [facility]. [address] MONOS 2.1 % Low 5.0-12.0 [facility] Comment on above: Performed By: #### 8 [id number] #### [facility] [address] Neutrophils/100 WBC (Bld) 90.2 % High 40.0-72.0 [facility] Comment on above: Performed By: #### 8 [id number] #### [facility] [address] [facility]. [address] Nucleated RBC/100 WBC (Bld) [Ratio] 0 % Normal 0-0 [facility] Comment on above: Performed By: #### 8 [id number] #### [facility] [address] [facility] [address], [facility] PLAT CNT 321 10*3/uL Normal 150-400 The [facility] Comment on above: Performed By: #### 8 [id number] #### [facility] [address] [place] [address], [facility] POIK Slight Normal [facility] Comment on above: Performed By: #### 8 [id number] #### [facility] [address] [place] [address], [place] POLY Slight Normal [facility] Comment on above: Performed By: #### 8 [id number] #### [facility] [address] [place] [address], [place] RBC (Bld) [#/Vol] 3.32 10*6/uL Low 3.80-5.00 [facility] Comment on above: Performed By: #### 8 [id number] #### [facility] [address] [place] [address], [place] WBC (Bld) [#/Vol] 27.12 10*3/uL High 4.00-10.60 [facility] Comment on above: Performed By: #### 8 [id number] #### [facility] [address] [place] [address], [facility] MAGNESIUM BLOODon 04-08-2022 Magnesium [Mass/Vol] 1.4 mg/dL Low 1.9-2.7 [facility] Comment on above: Order Comment: No: D o not add to previous draw Performed By: #### 2 2706 #### [facility] [address] [place] [address], [facility] POC GLUCOSE LABon 04-08-2022 Glucose [Mass/Vol] 129 mg/dL High 70-100 [facility] Comment on above: Performed By: #### 8 [id number] #### [facility] [address] [place] [address], [place] Glucose [Mass/Vol] 130 mg/dL High 70-100 [facility] Comment on above: Performed By: #### 5 0608 #### [facility] [address] [place] [address], [place] Glucose [Mass/Vol] 132 mg/dL High 70-100 [facility] Comment on above: Performed By: #### 8 [id number] #### [facility] [address] [place] [address], [place] Glucose [Mass/Vol] 129 mg/dL High 70-100 [facility] Comment on above: Performed By: #### 8 [id number] #### [facility] [address] [place] [address], [facility] BASIC METABOLIC PANELon 05-2 Calcium [Mass/Vol] 7.8 mg/dL Low 8.6-10.3 [facility] Comment on above: Order Comment: No: D o not add to previous draw Performed By: #### 8 [id number] #### [facility] [address] [place] [address], [place] Chloride [Moles/Vol] 107 mmol/L Normal 98-107 [facility] Comment on above: Order Comment: No: D o not add to previous draw Performed By: #### 8 [id number] #### [facility] [address] [place] [address], [place] CO2 [Moles/Vol] 26 mmol/L Normal 21-31 The [facility] Comment on above: Order Comment: No: D o not add to previous draw Performed By: #### 8 [id number] #### [facility] [address] [place] [address], [place] Creatinine [Mass/Vol] 1.14 mg/dL Normal 0.60-1.20 [facility] Comment on above: Order Comment: No: D o not add to previous draw Performed By: #### 8 [id number] #### [facility] [address] [place] [address], [place] eGFR- 55 ml/min/1.73sq m Abnormal >60 The [facility] Comment on above: Order Comment: No: D o not add to previous draw Result Comment: Calc ulation may not be valid for patients over 70 years Performed By: #### 8 [id number] #### [facility] [address] [place] [address], [place] eGFR- non- 45 ml/min/1.73sq m Abnormal >60 The [facility] Comment on above: Order Comment: No: D o not add to previous draw Result Comment: Calc ulation may not be valid for patients over 70 years Performed By: #### 8 [id number] #### [facility] [address] [place] [address], [place] Glucose [Mass/Vol] 96 mg/dL Normal 70-100 The [facility] Comment on above: Order Comment: No: D o not add to previous draw Performed By: #### 8 [id number] #### [facility] [address] [place] [address], [place] Potassium [Moles/Vol] 4.0 mmol/L Normal 3.5-5.1 [facility] Comment on above: Order Comment: No: D o not add to previous draw Performed By: #### 8 [id number] #### [facility] [address] [place] [address], [place] Sodium [Moles/Vol] 139 mmol/L Normal 136-145 [facility] Comment on above: Order Comment: No: D o not add to previous draw Performed By: #### 8 [id number] #### [facility] [address] [place] [address], [place] Urea nitrogen [Mass/Vol] 13 mg/dL Normal 7-25 [facility] Comment on above: Order Comment: No: D o not add to previous draw Performed By: #### 8 [id number] #### [facility] [address] [place] [address], [place] CBC COMPLETE BLOOD COUNTon 0 - Erythrocyte distribution width (RBC) [Ratio] 19.3 % High 11.5-15.0 [facility] Comment on above: Order Comment: No: D o not add to previous draw Performed By: #### 5 [id number] #### [facility] [address] [place] [address], [facility] Hematocrit (Bld) [Volume fraction] 27.9 % Low 36.0-45.0 [facility] Comment on above: Order Comment: No: D o not add to previous draw Performed By: #### 5 0608 #### [facility] [address] [place] [address], [facility] Hemoglobin (Bld) [Mass/Vol] 8.4 g/dL Low 12.0-15.0 [facility] Comment on above: Order Comment: No: D o not add to previous draw Performed By: #### 5 0608 #### [facility] [address] [facility] [place] [address], [facility] MCH (RBC) [Entitic mass] 29.9 pg Normal 27.0-33.0 [facility] Comment on above: Order Comment: No: D o not add to previous draw Performed By: #### 5 0608 #### [facility] [address] [facility] [place] [address], [facility] MCHC (RBC) [Mass/Vol] 30.1 g/dL Low 32.0-35.0 [facility] Comment on above: Order Comment: No: D o not add to previous draw Performed By: #### 5 0608 #### [facility] [address] [facility] [place] [address], [facility] MCV (RBC) [Entitic vol] 99.3 fL High 82.0-98.0 [facility] Comment on above: Order Comment: No: D o not add to previous draw Performed By: #### 5 0608 #### [facility] [address] [place] [address], [facility] Nucleated RBC/100 WBC (Bld) [Ratio] 0 % Normal 0-0 [facility] Comment on above: Order Comment: No: D o not add to previous draw Performed By: #### 5 0608 #### [facility] [address] [place] [address], [place] PLAT CNT 281 10*3/uL Normal 150-400 The [facility] Comment on above: Order Comment: No: D o not add to previous draw Performed By: #### 5 0608 #### [facility] [address] [place] [address], [facility] RBC (Bld) [#/Vol] 2.81 10*6/uL Low 3.80-5.00 The [facility] Comment on above: Order Comment: No: D o not add to previous draw Performed By: #### 5 0608 #### [facility] [address] [place] [address], [place] WBC (Bld) [#/Vol] 22.46 10*3/uL High 4.00-10.60 [facility] Comment on above: Order Comment: No: D o not add to previous draw Performed By: #### 5 0608 #### [facility] [address] [place] [id number], [facility] MAGNESIUM BLOODon 04-07-2022 Magnesium [Mass/Vol] 1.7 mg/dL Low 1.9-2.7 [facility] Comment on above: Order Comment: No: D o not add to previous draw Performed By: #### 8 [id number] #### [facility] [address] [place] [address], [facility] POC GLUCOSE LABon 04-07-2022 Glucose [Mass/Vol] 192 mg/dL High 70-100 [facility] Comment on above: Performed By: #### 8 [id number] ####[facility] [id number], [place] Glucose [Mass/Vol] 139 mg/dL High 70-100 [facility] Comment on above: Performed By: #### 8 [id number] #### [facility] [address] [place] [address], [place] Glucose [Mass/Vol] 144 mg/dL High 70-100 [facility] Comment on above: Performed By: #### 8 [id number] #### [facility] [address] [place] [address], [place] Glucose [Mass/Vol] 111 mg/dL High 70-100 [facility] Comment on above: Performed By: #### 8 [id number] #### [facility] [address] [place] [address], [place] BASIC METABOLIC PANELon 05-2 -2021 Calcium [Mass/Vol] 8.2 mg/dL Low 8.6-10.3 [facility] Comment on above: Order Comment: Bleed , altereed mental status Performed By: #### 0 0071, 73664, 20127, 55455, 36120 ####[facility] [place] [address], [place] Chloride [Moles/Vol] 106 mmol/L Normal 98-107 [facility] Comment on above: Order Comment: Bleed , altereed mental status Performed By: #### 0 0071, 78040, 90277, 12486, 72109 ####[facility] [place] [address], [place] CO2 [Moles/Vol] 27 mmol/L Normal 21-31 [facility] Comment on above: Order Comment: Bleed , altereed mental status Performed By: #### 0 0071, 88638, 29521, 19623, 35294 ####[facility] [place] [address], [place] Creatinine [Mass/Vol] 1.07 mg/dL Normal 0.60-1.20 [facility] Comment on above: Order Comment: Bleed , altereed mental status Performed By: #### 0 0071, 05836, 23381, 33311, 40890 ####[facility] [place] [address], [facility] eGFR- 59 ml/min/1.73sq m Abnormal >60 [facility] Comment on above: Order Comment: Bleed , altereed mental status Result Comment: Calc ulation may not be valid for patients over 70 years Performed By: #### 0 0071, 59296, 36724, 38562, 14372 ####[facility] [place] [address], [facility] eGFR- non- 49 ml/min/1.73sq m Abnormal >60 [facility] Comment on above: Order Comment: Bleed , altereed mental status Result Comment: Calc ulation may not be valid for patients over 70 years Performed By: #### 0 0071, 69771, 02339, 43058, 10638 ####[facility] [place] [address], [facility] Glucose [Mass/Vol] 100 mg/dL Normal 70-100 [facility] Comment on above: Order Comment: Bleed , altereed mental status Performed By: #### 0 0071, 13304, 45691, 63485, 49482 ####[facility] [place] [address], [place] Potassium [Moles/Vol] 4.0 mmol/L Normal 3.5-5.1 [facility] Comment on above: Order Comment: Bleed , altereed mental status Performed By: #### 0 0071, 11082, 45339, 93218, 78574 ####[facility] [place] [address], [place] Sodium [Moles/Vol] 139 mmol/L Normal 136-145 [facility] Comment on above: Order Comment: Bleed , altereed mental status Performed By: #### 0 0071, 59204, 94559, 43977, 38742 ####[facility] Urea nitrogen [Mass/Vol] 15 mg/dL Normal 7-25 [facility] Comment on above: Order Comment: Bleed , altereed mental status Performed By: #### 0 0071, 99243, 91014, 96080, 22914 ####[facility] BNP (B-TYPE NATRIURETIC PEPT KAELA)on 04-06-2022 Natriuretic peptide B (Bld) [Mass/Vol] 487 pg/mL High 0-100 The [facility] Comment on above: Order Comment: Yes: Add to Previous draw if able Result Comment: Give n the appropriate clinical setting a BNP result of >100 pg/mL indicates congestive heart failure. Performed By: #### 8 [id number] #### [facility] [address] CBC W/DIFFon 04-06-2022 ABS IMM GRANS 0.5 10*3/uL High 0.0-0.2 The [facility] Comment on above: Order Comment: No: D o not add to previous draw Performed By: #### 8 [id number] #### [facility] [address] ABS NEUTROPHILS 18.4 10*3/uL High 1.6-7.6 The [facility] Comment on above: Order Comment: No: D o not add to previous draw Performed By: #### 8 [id number] #### [facility] [address] [place] [address], [facility] Basophils (Bld) [#/Vol] 0.1 10*3/uL Normal 0.0-0.2 [facility] Comment on above: Order Comment: No: D o not add to previous draw Performed By: #### 8 5499 #### [facility] [address] [place] [id number], [facility] Basophils/100 WBC (Bld) 0.5 % Normal 0.0-1.0 [facility] Comment on above: Order Comment: No: D o not add to previous draw Performed By: #### 8 [id number] #### [facility] [address] [place] [address], [facility] Eosinophils (Bld) [#/Vol] 0.0 10*3/uL Normal 0.0-0.5 [facility] Comment on above: Order Comment: No: D o not add to previous draw Performed By: #### 8 [id number] #### [facility] [address] [place] [address], [facility] Eosinophils/100 WBC (Bld) 0.0 % Normal 0.0-6.0 [facility] Comment on above: Order Comment: No: D o not add to previous draw Performed By: #### 8 [id number] #### [facility] [address] [place] [address], [facility] Erythrocyte distribution width (RBC) [Ratio] 19.4 % High 11.5-15.0 [facility] Comment on above: Order Comment: No: D o not add to previous draw Performed By: #### 8 [id number] #### [facility] [address] [place] [address], [facility] Hematocrit (Bld) [Volume fraction] 28.6 % Low 36.0-45.0 [facility] Comment on above: Order Comment: No: D o not add to previous draw Performed By: #### 8 [id number] #### [facility] [address] [place] [address], [facility] Hemoglobin (Bld) [Mass/Vol] 8.8 g/dL Low 12.0-15.0 [facility] Comment on above: Order Comment: No: D o not add to previous draw Performed By: #### 8 [id number] #### [facility] [address] [place] [address], [facility] IMMATURE GRANS 2.3 % High 0.0-1.0 The [facility] Comment on above: Order Comment: No: D o not add to previous draw Performed By: #### 8 [id number] #### [facility] [address] [facility] [place] [address], [facility] Lymphocytes (Bld) [#/Vol] 1.5 10*3/uL Normal 1.2-4.0 [facility] Comment on above: Order Comment: No: D o not add to previous draw Performed By: #### 8 [id number] #### [facility] [address] [place] [address], [facility] Lymphocytes/100 WBC (Bld) 7.2 % Low 20.0-45.0 [facility] Comment on above: Order Comment: No: D o not add to previous draw Performed By: #### 8 [id number] #### [facility] [address] [facility] [place] [address], [facility] MCH (RBC) [Entitic mass] 30.1 pg Normal 27.0-33.0 [facility] Comment on above: Order Comment: No: D o not add to previous draw Performed By: #### 8 [id number] #### [facility] [address] [place] [address], [facility] MCHC (RBC) [Mass/Vol] 30.8 g/dL Low 32.0-35.0 [facility] Comment on above: Order Comment: No: D o not add to previous draw Performed By: #### 8 [id number] #### [facility] [address] [facility] [place] [address], [facility] MCV (RBC) [Entitic vol] 97.9 fL Normal 82.0-98.0 [facility] Comment on above: Order Comment: No: D o not add to previous draw Performed By: #### 8 [id number] #### [facility] [address] [facility] [place] [address], [facility] Monocytes (Bld) [#/Vol] 0.3 10*3/uL Normal 0.1-1.0 [facility] Comment on above: Order Comment: No: D o not add to previous draw Performed By: #### 8 [id number] #### [facility] [address] [place] [id number], [facility] MONOS 1.6 % Low 5.0-12.0 [facility] Comment on above: Order Comment: No: D o not add to previous draw Performed By: #### 8 [id number] #### [facility] [address] [place] [address], [facility] Neutrophils/100 WBC (Bld) 88.4 % High 40.0-72.0 [facility] Comment on above: Order Comment: No: D o not add to previous draw Performed By: #### 8 [id number] #### [facility] [address] [place] [address], [facility] Nucleated RBC/100 WBC (Bld) [Ratio] 0 % Normal 0-0 [facility] Comment on above: Order Comment: No: D o not add to previous draw Performed By: #### 8 [id number] #### [facility] [address] [place] [id number], [place] PLAT CNT 279 10*3/uL Normal 150-400 The [facility] Comment on above: Order Comment: No: D o not add to previous draw Performed By: #### 8 [id number] #### [facility] [address] [place] [address], [place] RBC (Bld) [#/Vol] 2.92 10*6/uL Low 3.80-5.00 The [facility] Comment on above: Order Comment: No: D o not add to previous draw Performed By: #### 8 [id number] #### [facility] [address] [place] [address], [place] WBC (Bld) [#/Vol] 20.84 10*3/uL High 4.00-10.60 [facility] Comment on above: Order Comment: No: D o not add to previous draw Performed By: #### 8 [id number] #### [facility] [address] [facility] [place] [address], [facility] DIGOXINon 04-06-2022 Digoxin [Mass/Vol] 1.0 ng/mL Normal 0.7-2.0 [facility] Comment on above: Performed By: #### 0 0071, 03933, 51215, 32965, 84437 ####[facility] [facility] [place] [address], [facility] LIPASE BLOODon 04-06-2022 LIPASE 68 Units/L Normal 11-82 [facility] Comment on above: Performed By: #### 0 0071, 76405, 95911, 02445, 25941 ####[facility] [facility] MAGNESIUM BLOODon 04-06-2022 Magnesium [Mass/Vol] 1.6 mg/dL Low 1.9-2.7 [facility] Comment on above: Order Comment: Bleed , altereed mental status Performed By: #### 0 0071, 02322, 36176, 20499, 03718 ####[facility] [facility] [place] [address], [facility] PHOSPHORUS BLOODon Phosphate [Mass/Vol] 3.5 mg/dL Normal 2.5-5.0 [facility] Comment on above: Order Comment: No: D o not add to previous draw Performed By: #### 8 [id number] #### [facility] [address] [facility] [place] [address], [facility] POC GLUCOSE LABon 04-06-2022 Glucose [Mass/Vol] 121 mg/dL High 70-100 [facility] Comment on above: Performed By: #### 3 0313 #### [facility] [address] [place] [address], [facility] Glucose [Mass/Vol] 171 mg/dL High 70-100 [facility] Comment on above: Performed By: #### 8 [id number] #### [facility] [address] [place] [address], [place] Glucose [Mass/Vol] 178 mg/dL High 70-100 [facility] Comment on above: Performed By: #### 8 [id number] #### [facility] [address] [place] [address], [place] Glucose [Mass/Vol] 102 mg/dL High 70-100 [facility] Comment on above: Performed By: #### 5 0608 #### [facility] [address] [facility] [place] [address], [facility] APTTon 04-05-2022 aPTT Coag (Bld) [Time] 29.7 s Normal 25.0-35.0 [facility] Comment on above: Order Comment: [...] PURPOSE. Performed By: #### 8 [id number] #### [facility] [address] [place] [address], [place] CBC W/DIFFon 04-05-2022 ABS IMM GRANS 0.4 10*3/uL High 0.0-0.2 The [facility] Comment on above: Order Comment: No: D o not add to previous draw Performed By: #### 8 [id number] #### [facility] [address] [place] [address], [place] ABS NEUTROPHILS 19.7 10*3/uL High 1.6-7.6 The [facility] Comment on above: Order Comment: No: D o not add to previous draw Performed By: #### 8 [id number] #### [facility] [address] [place] [address], [facility] ANISO Moderate Normal [facility] Comment on above: Order Comment: No: D o not add to previous draw Performed By: #### 8 [id number] #### [facility] [address] [place] [address], [facility] Basophils (Bld) [#/Vol] 0.2 10*3/uL Normal 0.0-0.2 [facility] Comment on above: Order Comment: No: D o not add to previous draw Performed By: #### 8 [id number] #### [facility] [address] [place] [address], [facility] Basophils/100 WBC (Bld) 0.7 % Normal 0.0-1.0 [facility] Comment on above: Order Comment: No: D o not add to previous draw Performed By: #### 8 [id number] #### [facility] [address] [place] [address], [facility] Eosinophils (Bld) [#/Vol] 0.0 10*3/uL Normal 0.0-0.5 [facility] Comment on above: Order Comment: No: D o not add to previous draw Performed By: #### 8 [id number] #### [facility] [address] [place] [address], [facility] Eosinophils/100 WBC (Bld) 0.1 % Normal 0.0-6.0 [facility] Comment on above: Order Comment: No: D o not add to previous draw Performed By: #### 8 [id number] #### [facility] [address] [place] [address], [place] Erythrocyte distribution width (RBC) [Ratio] 19.5 % High 11.5-15.0 [facility] Comment on above: Order Comment: No: D o not add to previous draw Performed By: #### 8 [id number] #### [facility] [address] [facility] [address], [facility] Hematocrit (Bld) [Volume fraction] 27.8 % Low 36.0-45.0 [facility] Comment on above: Order Comment: No: D o not add to previous draw Performed By: #### 8 [id number] #### [facility] [address] [facility] [place] [place] [address], [facility] Hemoglobin (Bld) [Mass/Vol] 8.6 g/dL Low 12.0-15.0 [facility] Comment on above: Order Comment: No: D o not add to previous draw Performed By: #### 8 [id number] #### [facility] [address] [facility] [place] [address], [facility] IMMATURE GRANS 2.0 % High 0.0-1.0 The [facility] Comment on above: Order Comment: No: D o not add to previous draw Performed By: #### 8 [id number] #### [facility] [address] [facility] [address], [facility] Lymphocytes (Bld) [#/Vol] 1.4 10*3/uL Normal 1.2-4.0 [facility] Comment on above: Order Comment: No: D o not add to previous draw Performed By: #### 8 [id number] #### [facility] [address] [facility] [place] [address], [facility] Lymphocytes/100 WBC (Bld) 6.5 % Low 20.0-45.0 [facility] Comment on above: Order Comment: No: D o not add to previous draw Performed By: #### 8 [id number] #### [facility] [address] [place] [address], [facility] MCH (RBC) [Entitic mass] 30.3 pg Normal 27.0-33.0 [facility] Comment on above: Order Comment: No: D o not add to previous draw Performed By: #### 8 [id number] #### [facility] [address] [place] [address], [facility] MCHC (RBC) [Mass/Vol] 30.9 g/dL Low 32.0-35.0 [facility] Comment on above: Order Comment: No: D o not add to previous draw Performed By: #### 8 [id number] #### [facility] [address] [place] [address], [facility] MCV (RBC) [Entitic vol] 97.9 fL Normal 82.0-98.0 [facility] Comment on above: Order Comment: No: D o not add to previous draw Performed By: #### 8 [id number] #### [facility] [address] [place] [address], [facility] Monocytes (Bld) [#/Vol] 0.4 10*3/uL Normal 0.1-1.0 [facility] Comment on above: Order Comment: No: D o not add to previous draw Performed By: #### 8 [id number] #### [facility] [address] [facility] [address], [facility] MONOS 1.9 % Low 5.0-12.0 [facility] Comment on above: Order Comment: No: D o not add to previous draw Performed By: #### 8 [id number] #### [facility] [address] [facility] [place] [address], [facility] Neutrophils/100 WBC (Bld) 88.8 % High 40.0-72.0 [facility] Comment on above: Order Comment: No: D o not add to previous draw Performed By: #### 8 [id number] #### [facility] [address] [place] [address], [facility] Nucleated RBC/100 WBC (Bld) [Ratio] 0 % Normal 0-0 [facility] Comment on above: Order Comment: No: D o not add to previous draw Performed By: #### 8 [id number] #### [facility] [address] [place] [address], [facility] PLAT CNT 303 10*3/uL Normal 150-400 The [facility] Comment on above: Order Comment: No: D o not add to previous draw Performed By: #### 8 [id number] #### [facility] [address] [place] [address], [facility] POIK Slight Normal [facility] Comment on above: Order Comment: No: D o not add to previous draw Performed By: #### 8 [id number] #### [facility] [address] [place] [address], [facility] POLY Slight Normal [facility] Comment on above: Order Comment: No: D o not add to previous draw Performed By: #### 8 [id number] #### [facility] [address] [place] [address], [facility] RBC (Bld) [#/Vol] 2.84 10*6/uL Low 3.80-5.00 [facility] Comment on above: Order Comment: No: D o not add to previous draw Performed By: #### 8 [id number] #### [facility] [address] [place] [address], [facility] WBC (Bld) [#/Vol] 22.20 10*3/uL High 4.00-10.60 [facility] Comment on above: Order Comment: No: D o not add to previous draw Performed By: #### 8 [id number] #### [facility] [address] [place] [address], [facility] COMP METABOLIC PANELon 04-05 Albumin [Mass/Vol] 2.5 g/dL Low 3.5-5.7 [facility] Comment on above: Order Comment: The [employer] SARS-CoV-2 assay is a nucleic acid amplification test intended for the qualitative detection of RNA from SARS-CoV-2 isolated and purified from nasopharyngeal (LUNCH COOK),oropharyngeal (OP), nasal swab, sputum, and bronchoalveolar lavage (BAL) specimens from patients with signs and symptoms of infection who are suspected of COVID-19. Results are for the identification of SARS-CoV-2 RNA. The SARS-CoV-2 RNA is generally detectable during the acute phase of infection. The [employer] SARS-CoV-2 Assay on the Harmony and Harmony Fusion system is intended for use by laboratory personnel specifically instructed and trained in the operation of the Harmony [employer] system. The Aptima SARS-CoV-2 assay is [...] information. Performed By: #### 3 1792 #### [address] ALKALINE PHOSPH 100 IU/L Normal 34-104 [facility] Comment on above: Order Comment: The A ptima SARS-CoV-2 assay is a nucleic acid amplification test intended for the qualitative detection of RNA from SARS-CoV-2 isolated and purified from nasopharyngeal (LUNCH COOK),oropharyngeal (OP), nasal swab, sputum, and bronchoalveolar lavage (BAL) specimens from patients with signs and symptoms of infection who are suspected of COVID-19. Results are for the identification of SARS-CoV-2 RNA. The SARS-CoV-2 RNA is generally detectable during the acute phase of infection. The Aptima SARS-CoV-2 Assay on the Harmony [employer] Fusion system is intended for use by laboratory personnel specifically instructed and trained in the operation of the Harmony and [employer] system. The Aptima SARS-CoV-2 assay is [...] information. Performed By: #### 3 1792 #### [facility] [address] ALT [Catalytic activity/Vol] 13 U/L Normal 7-52 [facility] Comment on above: Order Comment: The A ptima SARS-CoV-2 assay is a nucleic acid amplification test intended for the qualitative detection of RNA from SARS-CoV-2 isolated and purified from nasopharyngeal (LUNCH COOK),oropharyngeal (OP), nasal swab, sputum, and bronchoalveolar lavage (BAL) specimens from patients with signs and symptoms of infection who are suspected of COVID-19. Results are for the identification of SARS-CoV-2 RNA. The SARS-CoV-2 RNA is generally detectable during the acute phase of infection. The Aptima SARS-CoV-2 Assay on the Sleep[employer] and Sleep[employer]FM Fusion system is intended for use by laboratory personnel specifically instructed and trained in the operation of the Harmony and Sleep[employer] Fusion system. The Aptima SARS-CoV-2 assay is [...] information. Performed By: #### 3 1792 #### [facility] [address] AST [Catalytic activity/Vol] 12 U/L Low 13-39 The [facility] Comment on above: Order Comment: The A ptima SARS-CoV-2 assay is a nucleic acid amplification test intended for the qualitative detection of RNA from SARS-CoV-2 isolated and purified from nasopharyngeal (LUNCH COOK),oropharyngeal (OP), nasal swab, sputum, and bronchoalveolar lavage (BAL) specimens from patients with signs and symptoms of infection who are suspected of COVID-19. Results are for the identification of SARS-CoV-2 RNA. The SARS-CoV-2 RNA is generally detectable during the acute phase of infection. The Aptima SARS-CoV-2 Assay on the Harmony and Harm[employer] Fusion system is intended for use by laboratory personnel specifically instructed and trained in the operation of the Harmony and [employer] Fusion system. The Aptima SARS-CoV-2 assay is [...] information. Performed By: #### 3 1792 #### [facility] [address] Bilirubin [Mass/Vol] 0.8 mg/dL Normal 0.3-1.0 [facility] Comment on above: Order Comment: The A ptima SARS-CoV-2 assay is a nucleic acid amplification test intended for the qualitative detection of RNA from SARS-CoV-2 isolated and purified from nasopharyngeal (LUNCH COOK),oropharyngeal (OP), nasal swab, sputum, and bronchoalveolar lavage (BAL) specimens from patients with signs and symptoms of infection who are suspected of COVID-19. Results are for the identification of SARS-CoV-2 RNA. The SARS-CoV-2 RNA is generally detectable during the acute phase of infection. The Aptima SARS-CoV-2 Assay on the Harmony and Harm[employer] Fusion system is intended for use by laboratory personnel specifically instructed and trained in the operation of the Harmony and Harm[employer] Fusion system. The Aptima SARS-CoV-2 assay is [...] and epidemiological information. Performed By: #### 3 2452 #### [facility] [address] [place] [address], [facility] Calcium [Mass/Vol] 8.1 mg/dL Low 8.6-10.3 The [facility] Comment on above: Order Comment: The A ptima SARS-CoV-2 assay is a nucleic acid amplification test intended for the qualitative detection of RNA from SARS-CoV-2 isolated and purified from nasopharyngeal (LUNCH COOK),oropharyngeal (OP), nasal swab, sputum, and bronchoalveolar lavage (BAL) specimens from patients with signs and symptoms of infection who are suspected of COVID-19. Results are for the identification of SARS-CoV-2 RNA. The SARS-CoV-2 RNA is generally detectable during the acute phase of infection. The Aptima SARS-CoV-2 Assay on the [employer] system is intended for use by laboratory personnel specifically instructed and trained in the operation of the Harmony and Sleep[employer]FM Fusion system. The Aptima SARS-CoV-2 assay is [...] information. Performed By: #### 3 1792 #### [facility] [address] [facility] [place] [address], [facility] Chloride [Moles/Vol] 106 mmol/L Normal 98-107 [facility] Comment on above: Order Comment: The A ptima SARS-CoV-2 assay is a nucleic acid amplification test intended for the qualitative detection of RNA from SARS-CoV-2 isolated and purified from nasopharyngeal (LUNCH COOK),oropharyngeal (OP), nasal swab, sputum, and bronchoalveolar lavage (BAL) specimens from patients with signs and symptoms of infection who are suspected of COVID-19. Results are for the identification of SARS-CoV-2 RNA. The SARS-CoV-2 RNA is generally detectable during the acute phase of infection. The Aptima SARS-CoV-2 Assay on the Harmony and Harm[employer] Fusion system is intended for use by laboratory personnel specifically instructed and trained in the operation of the Harmony and Harm[employer] Fusion system. The Aptima SARS-CoV-2 assay is [...] information. Performed By: #### 3 1792 #### [facility] [address] [place] [address], [facility] CO2 [Moles/Vol] 26 mmol/L Normal 21-31 [facility] Comment on above: Order Comment: The A ptima SARS-CoV-2 assay is a nucleic acid amplification test intended for the qualitative detection of RNA from SARS-CoV-2 isolated and purified from nasopharyngeal (LUNCH COOK),oropharyngeal (OP), nasal swab, sputum, and bronchoalveolar lavage (BAL) specimens from patients with signs and symptoms of infection who are suspected of COVID-19. Results are for the identification of SARS-CoV-2 RNA. The SARS-CoV-2 RNA is generally detectable during the acute phase of infection. The Aptima SARS-CoV-2 Assay on the Harmony and Harm[employer] Fusion system is intended for use by laboratory personnel specifically instructed and trained in the operation of the Harmony and [employer] Fusion system. The Aptima SARS-CoV-2 assay is [...] information. Performed By: #### 3 1792 #### [facility] [address] [place] [address], [facility] Creatinine [Mass/Vol] 1.24 mg/dL High 0.60-1.20 [facility] Comment on above: Order Comment: The A ptima SARS-CoV-2 assay is a nucleic acid amplification test intended for the qualitative detection of RNA from SARS-CoV-2 isolated and purified from nasopharyngeal (LUNCH COOK),oropharyngeal (OP), nasal swab, sputum, and bronchoalveolar lavage (BAL) specimens from patients with signs and symptoms of infection who are suspected of COVID-19. Results are for the identification of SARS-CoV-2 RNA. The SARS-CoV-2 RNA is generally detectable during the acute phase of infection. The Aptima SARS-CoV-2 Assay on the Sleep[employer] and Sleep[employer]FM Fusion system is intended for use by laboratory personnel specifically instructed and trained in the operation of the Sleep[employer]FM and Sleep[employer]FM Fusion system. The Aptima SARS-CoV-2 assay is [...] information. Performed By: #### 3 1792 #### [facility] [address] eGFR- 50 ml/min/1.73sq m Abnormal >60 The [facility] Comment on above: Order Comment: The A ptima SARS-CoV-2 assay is a nucleic acid amplification test intended for the qualitative detection of RNA from SARS-CoV-2 isolated and purified from nasopharyngeal (LUNCH COOK),oropharyngeal (OP), nasal swab, sputum, and bronchoalveolar lavage (BAL) specimens from patients with signs and symptoms of infection who are suspected of COVID-19. Results are for the identification of SARS-CoV-2 RNA. The SARS-CoV-2 RNA is generally detectable during the acute phase of infection. The Aptima SARS-CoV-2 Assay on the Sleep[employer]FM and Sleep[employer]FM Fusion system is intended for use by laboratory personnel specifically instructed and trained in the operation of the Sleep[employer]FM and Harmony Fusion system. The Aptima SARS-CoV-2 assay is [...] years Performed By: #### 3 1792 #### [facility] [address] [place] [address], [facility] eGFR- non- 42 ml/min/1.73sq m Abnormal >60 The [facility] Comment on above: Order Comment: The A ptima SARS-CoV-2 assay is a nucleic acid amplification test intended for the qualitative detection of RNA from SARS-CoV-2 isolated and purified from nasopharyngeal (LUNCH COOK),oropharyngeal (OP), nasal swab, sputum, and bronchoalveolar lavage (BAL) specimens from patients with signs and symptoms of infection who are suspected of COVID-19. Results are for the identification of SARS-CoV-2 RNA. The SARS-CoV-2 RNA is generally detectable during the acute phase of infection. The Aptima SARS-CoV-2 Assay on the Harmony and Harm[employer] Fusion system is intended for use by laboratory personnel specifically instructed and trained in the operation of the Harmony and Harmony Fusion system. The Aptima SARS-CoV-2 assay is [...] years Performed By: #### 3 1792 #### [facility] [address] [place] [address], [facility] Glucose [Mass/Vol] 95 mg/dL Normal 70-100 [facility] Comment on above: Order Comment: The A ptima SARS-CoV-2 assay is a nucleic acid amplification test intended for the qualitative detection of RNA from SARS-CoV-2 isolated and purified from nasopharyngeal (LUNCH COOK),oropharyngeal (OP), nasal swab, sputum, and bronchoalveolar lavage (BAL) specimens from patients with signs and symptoms of infection who are suspected of COVID-19. Results are for the identification of SARS-CoV-2 RNA. The SARS-CoV-2 RNA is generally detectable during the acute phase of infection. The Aptima SARS-CoV-2 Assay on the Sleep[employer]FM and Sleep[employer]FM Fusion system is intended for use by laboratory personnel specifically instructed and trained in the operation of the Harmony and Harmony Fusion system. The Aptima SARS-CoV-2 assay is [...] information. Performed By: #### 3 1792 #### [facility] [address] [place] [address], [facility] Potassium [Moles/Vol] 4.1 mmol/L Normal 3.5-5.1 [facility] Comment on above: Order Comment: The A ptima SARS-CoV-2 assay is a nucleic acid amplification test intended for the qualitative detection of RNA from SARS-CoV-2 isolated and purified from nasopharyngeal (LUNCH COOK),oropharyngeal (OP), nasal swab, sputum, and bronchoalveolar lavage (BAL) specimens from patients with signs and symptoms of infection who are suspected of COVID-19. Results are for the identification of SARS-CoV-2 RNA. The SARS-CoV-2 RNA is generally detectable during the acute phase of infection. The Aptima SARS-CoV-2 Assay on the Harmony and Harmony Fusion system is intended for use by laboratory personnel specifically instructed and trained in the operation of the Harmony and Harmony Fusion system. The Aptima SARS-CoV-2 assay is [...] information. Performed By: #### 3 1792 #### [facility] [address] [place] [address], [facility] Protein [Mass/Vol] 5.0 g/dL Low 6.0-8.3 [facility] Comment on above: Order Comment: The A ptima SARS-CoV-2 assay is a nucleic acid amplification test intended for the qualitative detection of RNA from SARS-CoV-2 isolated and purified from nasopharyngeal (LUNCH COOK),oropharyngeal (OP), nasal swab, sputum, and bronchoalveolar lavage (BAL) specimens from patients with signs and symptoms of infection who are suspected of COVID-19. Results are for the identification of SARS-CoV-2 RNA. The SARS-CoV-2 RNA is generally detectable during the acute phase of infection. The Aptima SARS-CoV-2 Assay on the Harmony and Harmony Fusion system is intended for use by laboratory personnel specifically instructed and trained in the operation of the Harmony and [employer] Fusion system. The Aptima SARS-CoV-2 assay is [...] information. Performed By: #### 3 1792 #### [facility] [address] [place] [address], [facility] Sodium [Moles/Vol] 138 mmol/L Normal 136-145 [facility] Comment on above: Order Comment: The A ptima SARS-CoV-2 assay is a nucleic acid amplification test intended for the qualitative detection of RNA from SARS-CoV-2 isolated and purified from nasopharyngeal (LUNCH COOK),oropharyngeal (OP), nasal swab, sputum, and bronchoalveolar lavage (BAL) specimens from patients with signs and symptoms of infection who are suspected of COVID-19. Results are for the identification of SARS-CoV-2 RNA. The SARS-CoV-2 RNA is generally detectable during the acute phase of infection. The Aptima SARS-CoV-2 Assay on the Harmony and Harmony Fusion system is intended for use by laboratory personnel specifically instructed and trained in the operation of the Harmony and Harmony Fusion system. The Aptima SARS-CoV-2 assay is [...] information. Performed By: #### 3 1792 #### [address] Urea nitrogen [Mass/Vol] 24 mg/dL Normal 7-25 [facility] Comment on above: Order Comment: The A ptima SARS-CoV-2 assay is a nucleic acid amplification test intended for the qualitative detection of RNA from SARS-CoV-2 isolated and purified from nasopharyngeal (LUNCH COOK),oropharyngeal (OP), nasal swab, sputum, and bronchoalveolar lavage (BAL) specimens from patients with signs and symptoms of infection who are suspected of COVID-19. Results are for the identification of SARS-CoV-2 RNA. The SARS-CoV-2 RNA is generally detectable during the acute phase of infection. The Aptima SARS-CoV-2 Assay on the Harmony and Harmony Fusion system is intended for use by laboratory personnel specifically instructed and trained in the operation of the Harmony and [employer]ony Fusion system. The Aptima SARS-CoV-2 assay is [...] information. Performed By: #### 3 1792 #### [facility] [address] [facility] [address] HEMOGLOBINon 04-05-2022 Hemoglobin (Bld) [Mass/Vol] 8.9 g/dL Low 12.0-15.0 [facility] Comment on above: Order Comment: No: D o not add to previous draw Performed By: #### 8 [id number] #### [facility] [address] Hemoglobin (Bld) [Mass/Vol] 10.1 g/dL Low 12.0-15.0 [facility] Comment on above: Order Comment: No: D o not add to previous draw Performed By: #### 8 [id number] #### [facility] [address] MAGNESIUM BLOODon 04-05-2022 Magnesium [Mass/Vol] 1.6 mg/dL Low 1.9-2.7 [facility] Comment on above: Order Comment: The A ptima SARS-CoV-2 assay is a nucleic acid amplification test intended for the qualitative detection of RNA from SARS-CoV-2 isolated and purified from nasopharyngeal (LUNCH COOK),oropharyngeal (OP), nasal swab, sputum, and bronchoalveolar lavage (BAL) specimens from patients with signs and symptoms of infection who are suspected of COVID-19. Results are for the identification of SARS-CoV-2 RNA. The SARS-CoV-2 RNA is generally detectable during the acute phase of infection. The Aptima SARS-CoV-2 Assay on the Harmony and Harmony Fusion system is intended for use by laboratory personnel specifically instructed and trained in the operation of the Harmony and Harmony Fusion system. The Aptima SARS-CoV-2 assay is [...] information. Performed By: #### 3 1792 #### [facility] [address] [place] [address], [facility] PHOSPHORUS BLOODon 2 Phosphate [Mass/Vol] 3.5 mg/dL Normal 2.5-5.0 [facility] Comment on above: Order Comment: The A ptima SARS-CoV-2 assay is a nucleic acid amplification test intended for the qualitative detection of RNA from SARS-CoV-2 isolated and purified from nasopharyngeal (LUNCH COOK),oropharyngeal (OP), nasal swab, sputum, and bronchoalveolar lavage (BAL) specimens from patients with signs and symptoms of infection who are suspected of COVID-19. Results are for the identification of SARS-CoV-2 RNA. The SARS-CoV-2 RNA is generally detectable during the acute phase of infection. The Aptima SARS-CoV-2 Assay on the Sleep[employer] and Harmony Fusion system is intended for use by laboratory personnel specifically instructed and trained in the operation of the Harmony and Harmony Fusion system. The Aptima SARS-CoV-2 assay is [...] and epidemiological information. Performed By: #### 3 0402 #### [facility] [address] [facility] [place] [address], [facility] POC GLUCOSE LABon 04-05-2022 Glucose [Mass/Vol] 115 mg/dL High 70-100 [facility] Comment on above: Performed By: #### 5 0608 #### [facility] [address] [place] [address], [place] Glucose [Mass/Vol] 119 mg/dL High 70-100 [facility] Comment on above: Performed By: #### 8 [id number] #### [facility] [address] [place] [address], [place] Glucose [Mass/Vol] 145 mg/dL High 70-100 [facility] Comment on above: Performed By: #### 8 [id number] #### [facility] [address] [place] [address], [place] Glucose [Mass/Vol] 108 mg/dL High 70-100 [facility] Comment on above: Performed By: #### 8 [id number] #### [facility] [address] [place] [address], [place] Glucose [Mass/Vol] 117 mg/dL High 70-100 [facility] Comment on above: Performed By: #### 8 [id number] #### [facility] [address] [place] [address], [facility] PROTHROMBIN TIMEon 2 INR Coag (PPP) [Relative time] 1.13 {INR} Normal 0.91-1.16 [facility] Comment on above: Order Comment: No: [...] 1995;[id number]. Performed By: #### 8 [id number] #### [facility] [address] PT Coag (PPP) [Time] 14.5 s Normal 12.3-14.8 [facility] Comment on above: Order Comment: No: D o not add to previous draw Result Comment: ALL RESULTS MUST BE INTERPRETED WITH RESPECT TO BLOOD DRAWING ARTIFACT OR DILUTION ERROR OF ANTICOAGULANT AT THE TIME OF SAMPLING. Performed By: #### 8 [id number] #### [facility] [address] APTTon 04-04-2022 aPTT Coag (Bld) [Time] 31.2 s Normal 25.0-35.0 [facility] Comment on above: Order Comment: No: [...] PURPOSE. Performed By: #### 8 [id number] #### [facility] [address] ARTERIAL BLOOD GAS WITH ICAo n 04-04-2022 BASE EXCESS 0 mmol/L Normal -2-3 [facility] Comment on above: Performed By: #### 8 [id number] #### [facility] [address] DELIVERY SYSTEMS NASAL CANNULA Normal [facility] Comment on above: Performed By: #### 8 [id number] #### [facility] [address] [place] [address], [facility] HCO3 (Bld) [Moles/Vol] 26 mmol/L Normal 21-28 [facility] Comment on above: Performed By: #### 8 [id number] #### [facility] [address] [place] [address], [facility] IONIZED CALCIUM 1.18 mmol/L Normal 1.13-1.32 [facility] Comment on above: Performed By: #### 8 [id number] #### [facility] [address] [place] [address], [facility] LPM 2.0 LPM Normal [facility] Comment on above: Performed By: #### 8 [id number] #### [facility] [address] [place] [address], [facility] Oxygen (Bld) [Partial pressure] 74 mm[Hg] Low 83-108 [facility] Comment on above: Performed By: #### 8 [id number] #### [facility] [address] [facility] [place] [address], [facility] Oxygen saturation in Blood 95.4 % Normal 94.0-97.0 [facility] Comment on above: Performed By: #### 8 [id number] #### [facility] [address] [facility] [place] [address], [facility] PCO2 45 mmHg Normal 35-45 [facility] Comment on above: Performed By: #### 8 [id number] #### [facility] [address] [place] [address], [facility] pH (Bld) 7.37 [pH] Normal 7.35-7.45 [facility] Comment on above: Performed By: #### 8 [id number] #### [facility] [address] [place] [address], [facility] CBC W/DIFFon 04-04-2022 ABS IMM GRANS 0.7 10*3/uL High 0.0-0.2 The [facility] Comment on above: Order Comment: No: D o not add to previous draw Performed By: #### 8 [id number] #### [facility] [address] [place] [address], [place] ABS NEUTROPHILS 19.9 10*3/uL High 1.6-7.6 [facility] Comment on above: Order Comment: No: D o not add to previous draw Performed By: #### 8 [id number] #### [facility] [address] [place] [address], [place] ANISO Moderate Normal [facility] Comment on above: Order Comment: No: D o not add to previous draw Performed By: #### 8 [id number] #### [facility] [address] [place] [address], [place] Basophils (Bld) [#/Vol] 0.2 10*3/uL Normal 0.0-0.2 [facility] Comment on above: Order Comment: No: D o not add to previous draw Performed By: #### 8 [id number] #### [facility] [address] [place] [address], [place] Basophils/100 WBC (Bld) 0.7 % Normal 0.0-1.0 [facility] Comment on above: Order Comment: No: D o not add to previous draw Performed By: #### 8 [id number] #### [facility] [address] [place] [address], [place] Eosinophils (Bld) [#/Vol] 0.0 10*3/uL Normal 0.0-0.5 [facility] Comment on above: Order Comment: No: D o not add to previous draw Performed By: #### 8 [id number] #### [facility] [address] [place] [address], [place] Eosinophils/100 WBC (Bld) 0.1 % Normal 0.0-6.0 [facility] Comment on above: Order Comment: No: D o not add to previous draw Performed By: #### 8 [id number] #### [facility] [address] [place] [address], [facility] Erythrocyte distribution width (RBC) [Ratio] 20.2 % High 11.5-15.0 [facility] Comment on above: Order Comment: No: D o not add to previous draw Performed By: #### 8 [id number] #### [facility] [address] [place] [id number], [facility] Hematocrit (Bld) [Volume fraction] 28.0 % Low 36.0-45.0 [facility] Comment on above: Order Comment: No: D o not add to previous draw Performed By: #### 8 [id number] #### [facility] [address] [place] [id number], [facility] Hemoglobin (Bld) [Mass/Vol] 8.8 g/dL Low 12.0-15.0 [facility] Comment on above: Order Comment: No: D o not add to previous draw Performed By: #### 8 [id number] #### [facility] [address] [facility] [place] [place] [address], [facility] IMMATURE GRANS 3.0 % High 0.0-1.0 The [facility] Comment on above: Order Comment: No: D o not add to previous draw Performed By: #### 8 [id number] #### [facility] [address] [place] [address], [facility] Lymphocytes (Bld) [#/Vol] 1.1 10*3/uL Low 1.2-4.0 [facility] Comment on above: Order Comment: No: D o not add to previous draw Performed By: #### 8 [id number] #### [facility] [address] [place] [id number], [facility] Lymphocytes/100 WBC (Bld) 5.1 % Low 20.0-45.0 [facility] Comment on above: Order Comment: No: D o not add to previous draw Performed By: #### 8 [id number] #### [facility] [address] [place] [address], [facility] MCH (RBC) [Entitic mass] 29.9 pg Normal 27.0-33.0 The [facility] Comment on above: Order Comment: No: D o not add to previous draw Performed By: #### 8 [id number] #### [facility] [address] [place] [id number], [facility] MCHC (RBC) [Mass/Vol] 31.4 g/dL Low 32.0-35.0 [facility] Comment on above: Order Comment: No: D o not add to previous draw Performed By: #### 8 [id number] #### [facility] [address] [place] [id number], [facility] MCV (RBC) [Entitic vol] 95.2 fL Normal 82.0-98.0 [facility] Comment on above: Order Comment: No: D o not add to previous draw Performed By: #### 8 [id number] #### [facility] [address] [facility] [place] [address], [facility] Monocytes (Bld) [#/Vol] 0.4 10*3/uL Normal 0.1-1.0 [facility] Comment on above: Order Comment: No: D o not add to previous draw Performed By: #### 8 [id number] #### [facility] [address] [facility] [place] [address], [facility] MONOS 2.0 % Low 5.0-12.0 [facility] Comment on above: Order Comment: No: D o not add to previous draw Performed By: #### 8 [id number] #### [facility] [address] [place] [address], [facility] Neutrophils/100 WBC (Bld) 89.1 % High 40.0-72.0 [facility] Comment on above: Order Comment: No: D o not add to previous draw Performed By: #### 8 [id number] #### [facility] [address] [place] [address], [facility] Nucleated RBC/100 WBC (Bld) [Ratio] 0 % Normal 0-0 [facility] Comment on above: Order Comment: No: D o not add to previous draw Performed By: #### 8 [id number] #### [facility] [address] [place] [address], [place] PLAT CNT 303 10*3/uL Normal 150-400 [facility] Comment on above: Order Comment: No: D o not add to previous draw Performed By: #### 8 [id number] #### [facility] [address] [place] [address], [facility] POIK Slight Normal [facility] Comment on above: Order Comment: No: D o not add to previous draw Performed By: #### 8 [id number] #### [facility] [address] [place] [address], [place] POLY Slight Normal [facility] Comment on above: Order Comment: No: D o not add to previous draw Performed By: #### 8 [id number] #### [facility] [address] [place] [address], [place] RBC (Bld) [#/Vol] 2.94 10*6/uL Low 3.80-5.00 [facility] Comment on above: Order Comment: No: D o not add to previous draw Performed By: #### 8 [id number] #### [facility] [address] [place] [address], [place] WBC (Bld) [#/Vol] 22.35 10*3/uL High 4.00-10.60 [facility] Comment on above: Order Comment: No: D o not add to previous draw Performed By: #### 8 [id number] #### [facility] [address] [place] [address], [place] COMP METABOLIC PANELon 04-04 Albumin [Mass/Vol] 2.4 g/dL Low 3.5-5.7 [facility] Comment on above: Order Comment: No: D o not add to previous draw Performed By: #### 8 [id number] #### [facility] [address] [place] [address], [place] ALKALINE PHOSPH 92 IU/L Normal 34-104 [facility] Comment on above: Order Comment: No: D o not add to previous draw Performed By: #### 8 [id number] #### [facility] [address] [place] [address], [place] ALT [Catalytic activity/Vol] 12 U/L Normal 7-52 [facility] Comment on above: Order Comment: No: D o not add to previous draw Performed By: #### 8 [id number] #### [facility] [address] [place] [address], [place] AST [Catalytic activity/Vol] 10 U/L Low 13-39 [facility] Comment on above: Order Comment: No: D o not add to previous draw Performed By: #### 8 [id number] #### [facility] [address] [place] [address], [place] Bilirubin [Mass/Vol] 1.0 mg/dL Normal 0.3-1.0 [facility] Comment on above: Order Comment: No: D o not add to previous draw Performed By: #### 8 [id number] #### [facility] [address] [place] [address], [place] Calcium [Mass/Vol] 7.7 mg/dL Low 8.6-10.3 [facility] Comment on above: Order Comment: No: D o not add to previous draw Performed By: #### 8 [id number] #### [facility] [address] [place] [address], [place] Chloride [Moles/Vol] 110 mmol/L High 98-107 [facility] Comment on above: Order Comment: No: D o not add to previous draw Performed By: #### 8 [id number] #### [facility] [address] [place] [address], [place] CO2 [Moles/Vol] 24 mmol/L Normal 21-31 [facility] Comment on above: Order Comment: No: D o not add to previous draw Performed By: #### 8 [id number] #### [facility] [address] [place] [address], [place] Creatinine [Mass/Vol] 1.18 mg/dL Normal 0.60-1.20 [facility] Comment on above: Order Comment: No: D o not add to previous draw Performed By: #### 8 [id number] #### [facility] [address] [place] [address], [facility] eGFR- 53 ml/min/1.73sq m Abnormal >60 The [facility] Comment on above: Order Comment: No: D o not add to previous draw Result Comment: Calc ulation may not be valid for patients over 70 years Performed By: #### 8 [id number] #### [facility] [address] [place] [address], [place] eGFR- non- 44 ml/min/1.73sq m Abnormal >60 [facility] Comment on above: Order Comment: No: D o not add to previous draw Result Comment: Calc ulation may not be valid for patients over 70 years Performed By: #### 8 [id number] #### [facility] [address] [place] [address], [place] Glucose [Mass/Vol] 90 mg/dL Normal 70-[address] [facility] Comment on above: Order Comment: No: D o not add to previous draw Performed By: #### 8 [id number] #### [facility] [address] [place] [address], [place] Potassium [Moles/Vol] 4.3 mmol/L Normal 3.5-5.1 [facility] Comment on above: Order Comment: No: D o not add to previous draw Performed By: #### 8 [id number] #### [facility] [address] [place] [address], [facility] Protein [Mass/Vol] 4.8 g/dL Low 6.0-8.3 [facility] Comment on above: Order Comment: No: D o not add to previous draw Performed By: #### 8 [id number] #### [facility] [address] [place] [address], [place] Sodium [Moles/Vol] 140 mmol/L Normal 136-145 [facility] Comment on above: Order Comment: No: D o not add to previous draw Performed By: #### 8 [id number] #### [facility] [address] [place] [address], [facility] Urea nitrogen [Mass/Vol] 37 mg/dL High 7-25 [facility] Comment on above: Order Comment: No: D o not add to previous draw Performed By: #### 8 [id number] #### [facility] [address] [place] [address], [facility] Endoscopy Reporton 2 Endoscopy Report MR#: [id number] [facility] Pt. Name: María Elena Tafoya Surgery Date: 04/03/2022 Room #: [facility] [id number] Date of : 1940 PROCEDURE NOTE ATTENDING: [...] A Elizabeth Olivo M.D. Date Dict: 04/03/2022/01:39 Janet Olivo M.D. Date Trans: 04/04/2022 04:28 A/erik [id number] cc: Bennie Albright M.D. [address], [place] [address] Normal [facility] HEMOGLOBINon 04-04-2022 Hemoglobin (Bld) [Mass/Vol] 9.4 g/dL Low 12.0-15.0 [facility] Comment on above: Order Comment: No: D o not add to previous draw Performed By: #### 8 [id number] #### [facility] [address] [place] [address], [facility] Hemoglobin (Bld) [Mass/Vol] 9.5 g/dL Low 12.0-15.0 [facility] Comment on above: Order Comment: No: D o not add to previous draw Performed By: #### 5 0608 #### [facility] [address] [facility] [place] [address], [facility] Hemoglobin (Bld) [Mass/Vol] 8.9 g/dL Low 12.0-15.0 [facility] Comment on above: Order Comment: No: D o not add to previous draw Performed By: #### 8 [id number] #### [facility] [address] [facility] [place] [address], [facility] MAGNESIUM BLOODon 04-04-2022 Magnesium [Mass/Vol] 1.6 mg/dL Low 1.9-2.7 [facility] Comment on above: Order Comment: No: D o not add to previous draw Performed By: #### 8 [id number] #### [facility] [address] [facility] [place] [address], [place] PHOSPHORUS BLOODon 2 Phosphate [Mass/Vol] 3.8 mg/dL Normal 2.5-5.0 [facility] Comment on above: Order Comment: No: D o not add to previous draw Performed By: #### 8 [id number] #### [facility] [address] [place] [address], [place] POC GLUCOSE LABon 04-04-2022 Glucose [Mass/Vol] 123 mg/dL High 70-100 [facility] Comment on above: Performed By: #### 5 0608 #### [facility] [address] [place] [address], [place] Glucose [Mass/Vol] 152 mg/dL High 70-100 [facility] Comment on above: Performed By: #### 8 [id number] ####[facility] [place] [address], [place] Glucose [Mass/Vol] 111 mg/dL High 70-100 [facility] Comment on above: Performed By: #### 8 [id number] #### [facility] [address] [place] [address], [place] Glucose [Mass/Vol] 109 mg/dL High 70-100 [facility] Comment on above: Performed By: #### 8 [id number] #### [facility] [address] [place] [address], [place] Glucose [Mass/Vol] 94 mg/dL Normal 70-100 [facility] Comment on above: Performed By: #### 8 [id number] ####[facility] [place] [address], [place] PROTHROMBIN TIMEon 2 INR Coag (PPP) [Relative time] 1.18 {INR} High 0.91-1.16 [facility] Comment on above: Order Comment: [...] 1995;108:[id number]. Performed By: #### 8 5499 #### [facility] [address] PT Coag (PPP) [Time] 14.9 s High 12.3-14.8 [facility] Comment on above: Order Comment: No: D o not add to previous draw Result Comment: ALL RESULTS MUST BE INTERPRETED WITH RESPECT TO BLOOD DRAWING ARTIFACT OR DILUTION ERROR OF ANTICOAGULANT AT THE TIME OF SAMPLING. Performed By: #### 8 [id number] #### [facility] [address] UFH HEPARIN ASSAYon 04-04-20 UNFRACTIONATED HEPARIN 0.11 IU/mL Critically low 0.30-0.70 [facility] Comment on above: Result Comment: RESU LTS CHECKED AND CALLED. ACCURATELY READ BACK BY CHAZ LAWLER RN @ 1036 Rivaroxaban and Apixaban will interfere with the anti Xa assay used to monitor UFH and LMWH. Performed By: #### 8 [id number] #### [facility] [address] US GALLBLADDERon 04-04-2022 US GALLBLADDER [facility] Department of Radiology [address] [place] [address] ======== Patient Name: MARÍA ELENA TAFOYA : 1940 Sex: F Age: Race: NA Pt. Location: [address] [place] [address] Patient Status: I Ordered Date: 04/03/2022 8:05:00 [...] calculi. Electronically signed: Brooke Verduzco. Transcribed by: [email or web address], User Resident: Electronically Signed by: BROOKE VERDUZCO @ 04/04/2022 07:46 AM Normal [facility] Comment on above: Order Comment: Stone s VENOUS BLOOD GASon BASE EXCESS 2 mmol/L Normal [facility] Comment on above: Performed By: #### 8 [id number] #### [facility] [address] [place] [address], [facility] HCO3 (Bld) [Moles/Vol] 27 mmol/L Normal [facility] Comment on above: Performed By: #### 8 [id number] #### [facility] [address] [place] [address], [facility] Oxygen (Bld) [Partial pressure] 72 mm[Hg] Critically high 35-45 [facility] Comment on above: Performed By: #### 8 [id number] #### [facility] [address] Oxygen saturation in Blood 93.8 % High 65.0-75.0 [facility] Comment on above: Performed By: #### 8 [id number] #### [facility] [address] [place] [address], [facility] PCO2 42 mmHg Normal [facility] Comment on above: Performed By: #### 8 [id number] #### [facility] [address] [place] [address], [facility] pH (Bld) 7.41 [pH] Normal 7.31-7.41 [facility] Comment on above: Performed By: #### 8 [id number] #### [facility] [address] [place] [id number], [facility] APTTon 04-03-2022 aPTT Coag (Bld) [Time] 32.6 s Normal 25.0-35.0 [facility] Comment on above: Order Comment: [...] PURPOSE. Performed By: #### 8 [id number] #### [facility] [address] ARTERIAL BLOOD GAS WITH ICAo n 04-03-2022 BASE EXCESS 2 mmol/L Normal -2-3 [facility] Comment on above: Performed By: #### 8 [id number] #### [facility] [address] [place] [address], [facility] [employer] [place] Normal [facility] Comment on above: Performed By: #### 8 [id number] #### [facility] [address] [facility] [address] HCO3 (Bld) [Moles/Vol] 25 mmol/L Normal 21-28 [facility] Comment on above: Performed By: #### 8 [id number] #### [facility] [address] IONIZED CALCIUM 1.24 mmol/L Normal 1.13-1.32 [facility] Comment on above: Performed By: #### 8 [id number] #### [facility] [address] LPM 4.0 LPM Normal [facility] Comment on above: Performed By: #### 8 [id number] #### [facility] [address] Oxygen (Bld) [Partial pressure] 76 mm[Hg] Low 83-108 [facility] Comment on above: Performed By: #### 8 [id number] #### [facility] [address] [place] [address], [facility] Oxygen saturation in Blood 94.0 % Normal 94.0-97.0 [facility] Comment on above: Performed By: #### 8 [id number] #### [facility] [address] [facility] [place] [place] [address], [facility] PCO2 34 mmHg Low 35-45 [facility] Comment on above: Performed By: #### 8 [id number] #### [facility] [address] [place] [address], [facility] pH (Bld) 7.48 [pH] High 7.35-7.45 [facility] Comment on above: Performed By: #### 8 [id number] #### [facility] [address] [place] [address], [facility] BASIC METABOLIC PANELon 05-1 Calcium [Mass/Vol] 8.5 mg/dL Low 8.6-10.[address] [facility] Comment on above: Order Comment: No: D o not add to previous draw Performed By: #### 8 [id number] #### [facility] [address] [place] [address], [facility] Chloride [Moles/Vol] 108 mmol/L High 98-107 [facility] Comment on above: Order Comment: No: D o not add to previous draw Performed By: #### 8 [id number] #### [facility] [address] [facility] [place] [address], [facility] CO2 [Moles/Vol] 25 mmol/L Normal 21-31 [facility] Comment on above: Order Comment: No: D o not add to previous draw Performed By: #### 8 [id number] #### [facility] [address] [place] [address], [facility] Creatinine [Mass/Vol] 0.96 mg/dL Normal 0.60-1.20 [facility] Comment on above: Order Comment: No: D o not add to previous draw Performed By: #### 8 [id number] #### [facility] [address] [place] [address], [facility] eGFR- non- 56 ml/min/1.73sq m Abnormal >60 [facility] Comment on above: Order Comment: No: D o not add to previous draw Result Comment: Calc ulation may not be valid for patients over 70 years Performed By: #### 8 [id number] #### [facility] [address] [place] [address], [place] GFR/1.73 sq M.predicted among blacks MDRD (S/P/Bld) [Vol rate/Area] mL/min/{1.73_m2} Normal >60 [facility] Comment on above: Order Comment: No: D o not add to previous draw Result Comment: Calc ulation may not be valid for patients over 70 years Performed By: #### 8 [id number] #### [facility] [address] [place] [address], [place] Glucose [Mass/Vol] 122 mg/dL High 70-100 [facility] Comment on above: Order Comment: No: D o not add to previous draw Performed By: #### 8 [id number] #### [facility] [address] [place] [address], [place] Potassium [Moles/Vol] 5.5 mmol/L High 3.5-5.1 [facility] Comment on above: Order Comment: No: D o not add to previous draw Performed By: #### 8 [id number] #### [facility] [address] [place] [address], [place] Sodium [Moles/Vol] 137 mmol/L Normal 136-145 [facility] Comment on above: Order Comment: No: D o not add to previous draw Performed By: #### 8 [id number] #### [facility] [address] [place] [address], [place] Urea nitrogen [Mass/Vol] 30 mg/dL High 7-25 [facility] Comment on above: Order Comment: No: D o not add to previous draw Performed By: #### 8 [id number] #### [facility] [address] [place] [address], [place] BLOOD STOOL GUAIACon 022 BLD STOOL GUAIAC Positive Abnormal NEGATIVE [facility] Comment on above: Order Comment: No: D o not add to previous draw Performed By: #### 2 2706 #### [facility] [address] [place] [address], [facility] CALCIUM IONIZED CBGLon 04-03 IONIZED CALCIUM 1.18 mmol/L Normal 1.12-1.30 [facility] Comment on above: Performed By: #### 8 [id number] #### [facility] [address] [place] [id number], [facility] CBC COMPLETE BLOOD COUNTon 04-03-2022 Erythrocyte distribution width (RBC) [Ratio] 17.9 % High 11.5-15.0 [facility] Comment on above: Order Comment: No: D o not add to previous draw Performed By: #### 5 0608 #### [facility] [address] [place] [address], [facility] Hematocrit (Bld) [Volume fraction] 34.4 % Low 36.0-45.0 [facility] Comment on above: Order Comment: No: D o not add to previous draw Performed By: #### 5 0608 #### [facility] [address] [place] [id number], [facility] Hemoglobin (Bld) [Mass/Vol] 10.6 g/dL Low 12.0-15.0 [facility] Comment on above: Order Comment: No: D o not add to previous draw Performed By: #### 5 0608 #### [facility] [address] [place] [id number], [facility] MCH (RBC) [Entitic mass] 30.3 pg Normal 27.0-33.0 [facility] Comment on above: Order Comment: No: D o not add to previous draw Performed By: #### 5 0608 #### [facility] [address] MCHC (RBC) [Mass/Vol] 30.8 g/dL Low 32.0-35.0 [facility] Comment on above: Order Comment: No: D o not add to previous draw Performed By: #### 5 0608 #### [facility] [address] [place] [id number], [facility] MCV (RBC) [Entitic vol] 98.3 fL High 82.0-98.0 [facility] Comment on above: Order Comment: No: D o not add to previous draw Performed By: #### 5 0608 #### [facility] [address] [place] [address], [facility] Nucleated RBC/100 WBC (Bld) [Ratio] 0 % Normal 0-0 [facility] Comment on above: Order Comment: No: D o not add to previous draw Performed By: #### 5 0608 #### [facility] [address] [place] [address], [facility] PLAT CNT 396 10*3/uL Normal 150-400 [facility] Comment on above: Order Comment: No: D o not add to previous draw Performed By: #### 5 0608 #### [facility] [address] [place] [address], [facility] RBC (Bld) [#/Vol] 3.50 10*6/uL Low 3.80-5.00 [facility] Comment on above: Order Comment: No: D o not add to previous draw Performed By: #### 5 0608 #### [facility] [address] [place] [id number], [facility] WBC (Bld) [#/Vol] 34.46 10*3/uL High 4.00-10.60 [facility] Comment on above: Order Comment: No: D o not add to previous draw Performed By: #### 5 0608 #### [facility] [address] [place] [id number] BRAIN WO CONTRASTon 04-03 CT BRAIN WO CONTRAST [facility] Department of Radiology [address] [place] [address] ======== Patient Name: MARÍA ELENA TAFOYA : 1940 Sex: F Age: Race: NA Pt. Location: [place] [address] Patient Status: I Ordered Date: 04/03/2022 8:30:00 PM Completed Date: 04/03/2022 08:52 PM Requesting Provider: MARY LOU EDMONDS Attending Provider: IRA PAT Report Copy To: Signs & Symptoms: Bleed History: See Comments Comments: dione Noe mental status Exam: CT BRAIN WO CONTRAST ======== CT BRAIN WO CONTRAST 04/03/2022 8:52 PM CLINICAL INDICATIONS: Bleed TECHNOLOGIST COMMENTS: rn states pt is having right facial droop and right side weakness QUESTION FOR THE RADIOLOGIST: Blegraham alterpipe mental status PROTOCOL: Axial CT images [...] there is persistent concern for ischemia, consider MRLydia Electronically signed: Darrel Chang. Transcribed by: [email or web address], User Resident: Electronically Signed by: DARREL CHANG @ 04/03/2022 09:21 PM Normal [facility] Comment on above: Order Comment: Bleed , altereed mental status ERCPon 04-03-2022 ERCP [facility] Department of Radiology [address] [place] [address] ======== Patient Name: MARÍA ELENA TAFOYA : 1940 Sex: F Age: Race: NA Pt. Location: [id number] Patient Status: I Ordered Date: 04/03/2022 8:50:00 [...] details. Electronically signed: Brooke Verduzco. Transcribed by: [email or web address], User Resident: Electronically Signed by: BROOKE VERDUZCO @ 04/03/2022 12:52 PM Normal [facility] Comment on above: Order Comment: Check Stent Position HEMATOCRITon 04-03-2022 Hematocrit (Bld) [Volume fraction] 27.5 % Low 36.0-45.0 [facility] Comment on above: Order Comment: No: D o not add to previous draw Performed By: #### 8 [id number] #### [facility] [address] [place] [address], [facility] Hematocrit (Bld) [Volume fraction] 31.1 % Low 36.0-45.0 [facility] Comment on above: Order Comment: No: D o not add to previous draw Performed By: #### 8 [id number] #### [facility] [address] [place] [address], [facility] Hematocrit (Bld) [Volume fraction] 32.2 % Low 36.0-45.0 [facility] Comment on above: Order Comment: No: D o not add to previous draw Performed By: #### 8 [id number] #### [facility] [address] [place] [id number], [facility] HEMOGLOBINon 04-03-2022 Hemoglobin (Bld) [Mass/Vol] 8.8 g/dL Low 12.0-15.0 [facility] Comment on above: Order Comment: No: D o not add to previous draw Performed By: #### 8 [id number] #### [facility] [address] [place] [address], [facility] Hemoglobin (Bld) [Mass/Vol] 9.8 g/dL Low 12.0-15.0 [facility] Comment on above: Order Comment: No: D o not add to previous draw Performed By: #### 8 [id number] #### [facility] [address] [place] [address], [facility] Hemoglobin (Bld) [Mass/Vol] 9.9 g/dL Low 12.0-15.0 [facility] Comment on above: Order Comment: No: D o not add to previous draw Performed By: #### 8 [id number] #### [facility] [address] [place] [id number], [facility] LIPASE BLOODon 04-03-2022 LIPASE 149 Units/L High 11-82 [facility] Comment on above: Order Comment: No: D o not add to previous draw Performed By: #### 8 [id number] #### [facility] [address] [place] [address], [facility] LIVER BATTERYon 04-03-2022 Albumin [Mass/Vol] 2.8 g/dL Low 3.5-5.[address] [facility] Comment on above: Order Comment: No: D o not add to previous draw Performed By: #### 8 [id number] #### [facility] [address] [place] [id number], [facility] ALKALINE PHOSPH 137 IU/L High 34-104 [facility] Comment on above: Order Comment: No: D o not add to previous draw Performed By: #### 8 [id number] #### [facility] [address] [place] [address], [facility] ALT [Catalytic activity/Vol] 18 U/L Normal 7-52 [facility] Comment on above: Order Comment: No: D o not add to previous draw Performed By: #### 8 [id number] #### [facility] [address] [place] [address], [place] AST [Catalytic activity/Vol] 8 U/L Low 13-39 [facility] Comment on above: Order Comment: No: D o not add to previous draw Performed By: #### 8 [id number] #### [facility] [address] [place] [address], [place] Bilirubin [Mass/Vol] 1.5 mg/dL High 0.3-1.0 [facility] Comment on above: Order Comment: No: D o not add to previous draw Performed By: #### 8 [id number] #### [facility] [address] [place] [address], [place] Bilirubin.direct [Mass/Vol] 0.6 mg/dL High 0.0-0.2 [facility] Comment on above: Order Comment: No: D o not add to previous draw Performed By: #### 8 [id number] #### [facility] [address] [place] [address], [place] Protein [Mass/Vol] 5.8 g/dL Low 6.0-8.3 [facility] Comment on above: Order Comment: No: D o not add to previous draw Performed By: #### 8 [id number] #### [facility] [address] [place] [address], [place] MAGNESIUM BLOODon 04-03-2022 Magnesium [Mass/Vol] 2.0 mg/dL Normal 1.9-2.7 [facility] Comment on above: Order Comment: No: D o not add to previous draw Performed By: #### 8 [id number] #### [facility] [address] [place] [address], [place] PHOSPHORUS BLOODon Phosphate [Mass/Vol] 4.2 mg/dL Normal 2.5-5.0 [facility] Comment on above: Order Comment: No: D o not add to previous draw Performed By: #### 8 [id number] #### [facility] [address] [place] [address], [facility] POC GLUCOSE LABon 04-03-2022 Glucose [Mass/Vol] 121 mg/dL High 70-100 [facility] Comment on above: Performed By: #### 8 [id number] #### [facility] [address] [place] [address], [place] Glucose [Mass/Vol] 147 mg/dL High 70-100 [facility] Comment on above: Performed By: #### 8 [id number] #### [facility] [address] [place] [address], [facility] Glucose [Mass/Vol] 133 mg/dL High 70-100 [facility] Comment on above: Performed By: #### 3 [id number] #### [facility] [address] [place] [address], [facility] PROTHROMBIN TIMEon INR Coag (PPP) [Relative time] 1.23 {INR} High 0.91-1.16 [facility] Comment on above: Order Comment: [...] 1995;[id number]. Performed By: #### 8 [id number] #### [facility] [address] [place] [address], [facility] PT Coag (PPP) [Time] 15.5 s High 12.3-14.8 [facility] Comment on above: Order Comment: Yes: Add to Previous draw if ablePt is in [place] Result Comment: ALL RESULTS MUST BE INTERPRETED WITH RESPECT TO BLOOD DRAWING ARTIFACT OR DILUTION ERROR OF ANTICOAGULANT AT THE TIME OF SAMPLING. Performed By: #### 8 [id number] #### [facility] [address] [facility] [place] [address], [facility] RBC'S 1 UNITon 04-03-2022 CROSSMATCH INTERP 1 COMP Normal [facility] Comment on above: Performed By: #### 8 [id number] #### [facility] [address] [facility]. [address] PRODUCT CODE 1 E0336 Normal [facility] Comment on above: Performed By: #### 8 [id number] #### [facility] [address] [facility]. [address] PRODUCT STATUS 1 RE Normal [facility] Comment on above: Result Comment: Resu lt changed by IF on 04/07/2022 06:43. The previous value was XM. Performed By: #### 8 [id number] #### [facility] [address] [facility]. [address] UNIT ABO 1 A Normal [facility] Comment on above: Performed By: #### 8 [id number] #### [facility] [address] [facility]. [address] UNIT ID 1 [id number] Normal [facility] Comment on above: Performed By: #### 8 [id number] #### [facility] [address] [facility] [place] [address], [facility] UNIT RH 1 Negative Normal [facility] Comment on above: Performed By: #### 8 [id number] #### [facility] [address] [place] [address], [facility] RBC'S 2 UNITSon 04-03-2022 CROSSMATCH INTERP 1 COMP Normal [facility] Comment on above: Performed By: #### 8 [id number] #### [facility] [address] [place] [address], [facility] CROSSMATCH INTERP 2 COMP Normal [facility] Comment on above: Performed By: #### 8 [id number] #### [facility] [address] PRODUCT CODE 1 [id number] Normal [facility] Comment on above: Performed By: #### 8 [id number] #### [facility] [address] [place] [address], [facility] PRODUCT CODE 2 E0336 Normal [facility] Comment on above: Performed By: #### 8 [id number] #### [facility] [address] [place] [address], [facility] PRODUCT STATUS 1 PT Normal [facility] Comment on above: Result Comment: Resu lt changed by IF on 04/03/2022 10:21. The previous value was XM. Result changed by IF on 04/04/2022 00:30. The previous value was IS. Performed By: #### 8 [id number] #### [facility] [address] [place] [address], [facility] PRODUCT STATUS 2 PT Normal [facility] Comment on above: Result Comment: Resu lt changed by IF on 04/03/2022 10:21. The previous value was XM. Result changed by IF on 04/03/2022 11:27. The previous value was IS. Result changed by IF on 04/03/2022 12:23. The previous value was XM. Result changed by IF on 04/04/2022 00:30. The previous value was IS. Performed By: #### 8 [id number] #### [facility] [address] [place] [address], [facility] UNIT ABO 1 A Normal [facility] Comment on above: Performed By: #### 8 [id number] #### [facility] [address] [place] [address], [place] UNIT ABO 2 A Normal [facility] Comment on above: Performed By: #### 8 [id number] #### [facility] [address] [place] [address], [facility] UNIT ID 1 [id number] Normal [facility] Comment on above: Performed By: #### 8 [id number] #### [facility] [address] [place] [address], [facility] UNIT ID 2 [id number] Normal [facility] Comment on above: Performed By: #### 8 [id number] #### [facility] [address] [place] [address], [place] UNIT RH 1 Negative Normal [facility] Comment on above: Performed By: #### 8 [id number] #### [facility] [address] [place] [address], [place] UNIT RH 2 Negative Normal [facility] Comment on above: Performed By: #### 8 [id number] #### [facility] [address] [place] [address], [place] TYPE AND SCREENon 04-03-2022 ABO INTERPRETATION AB Normal [facility] Comment on above: Performed By: #### 8 [id number] #### [facility] [address] [place] [address], [place] RH INTERPRETATION Negative Normal [facility] Comment on above: Performed By: #### 8 [id number] #### [facility] [address] UFH HEPARIN ASSAYon 04-03-20 UNFRACTIONATED HEPARIN 0.28 IU/mL Low 0.30-0.70 [facility] Comment on above: Result Comment: Kristy roxaban and Apixaban will interfere with the anti Xa assay used to monitor UFH and LMWH. Performed By: #### 8 [id number] #### [facility] [address] VENOUS BLOOD GAS W/COOXon BASE EXCESS -3 mmol/L Normal [facility] Comment on above: Order Comment: RESUL TS CHECKED AND CALLED. ACCURATELY READ BACK BY AYANNA PHIPPS Performed By: #### 8 [id number] #### [facility] [address] COHB 2 % Normal [facility] Comment on above: Order Comment: RESUL TS CHECKED AND CALLED. ACCURATELY READ BACK BY AYANNA PHIPPS Performed By: #### 8 [id number] #### [facility] [address] [facility] [place] [address], [facility] HCO3 (Bld) [Moles/Vol] 25 mmol/L Normal [facility] Comment on above: Order Comment: RESUL TS CHECKED AND CALLED. ACCURATELY READ BACK BY AYANNA PHIPPS Performed By: #### 8 [id number] #### [facility] [address] [facility] [place] [address], [facility] METHB 0.3 % Normal [facility] Comment on above: Order Comment: RESUL TS CHECKED AND CALLED. ACCURATELY READ BACK BY AYANNA PHIPPS Performed By: #### 8 [id number] #### [facility] [address] [facility] [place] [address], [facility] Oxygen (Bld) [Partial pressure] 31 mm[Hg] Low 35-45 [facility] Comment on above: Order Comment: RESUL TS CHECKED AND CALLED. ACCURATELY READ BACK BY AYANNA PHIPPS Performed By: #### 8 [id number] #### [facility] [address] [facility]. [address] Oxygen saturation in Blood 38.0 % Low 65.0-75.0 [facility] Comment on above: Order Comment: RESUL TS CHECKED AND CALLED. ACCURATELY READ BACK BY AYANNA PHIPPS Performed By: #### 8 [id number] #### [facility] [address] [place] [address], [facility] PCO2 53 mmHg Normal [facility] Comment on above: Order Comment: RESUL TS CHECKED AND CALLED. ACCURATELY READ BACK BY AYANNA PHIPPS Performed By: #### 8 [id number] #### [facility] [address] [facility]. [address] pH (Bld) 7.28 [pH] Low 7.31-7.41 [facility] Comment on above: Order Comment: RESUL TS CHECKED AND CALLED. ACCURATELY READ BACK BY AYANNA PHIPPS Performed By: #### 8 [id number] #### [facility] [address] [facility]. [address] THB 9.2 g/dL Normal [facility] Comment on above: Order Comment: RESUL TS CHECKED AND CALLED. ACCURATELY READ BACK BY AYANNA PHIPPS Performed By: #### 8 [id number] #### [facility] [address] [facility]. [address] BASIC METABOLIC PANELon 05-1 Calcium [Mass/Vol] 8.5 mg/dL Low 8.6-10.3 [facility] Comment on above: Order Comment: The A ptima SARS-CoV-2 assay is a nucleic acid amplification test intended for the qualitative detection of RNA from SARS-CoV-2 isolated and purified from nasopharyngeal (LUNCH COOK),oropharyngeal (OP), nasal swab, sputum, and bronchoalveolar lavage (BAL) specimens from patients with signs and symptoms of infection who are suspected of COVID-19. Results are for the identification of SARS-CoV-2 RNA. The SARS-CoV-2 RNA is generally detectable during the acute phase of infection. The Aptima SARS-CoV-2 Assay on the Sleep.FM and Triviala system is intended for use by laboratory personnel specifically instructed and trained in the operation of the Harmony and Harmony Fusion system. The Aptima SARS-CoV-2 assay is [...] information. Performed By: #### 3 [id number] #### [facility] [address] [place] [address], [facility] Chloride [Moles/Vol] 104 mmol/L Normal 98-107 [facility] Comment on above: Order Comment: The A ptima SARS-CoV-2 assay is a nucleic acid amplification test intended for the qualitative detection of RNA from SARS-CoV-2 isolated and purified from nasopharyngeal (LUNCH COOK),oropharyngeal (OP), nasal swab, sputum, and bronchoalveolar lavage (BAL) specimens from patients with signs and symptoms of infection who are suspected of COVID-19. Results are for the identification of SARS-CoV-2 RNA. The SARS-CoV-2 RNA is generally detectable during the acute phase of infection. The Aptima SARS-CoV-2 Assay on the Harmony and Harmony Fusion system is intended for use by laboratory personnel specifically instructed and trained in the operation of the Harmony and Harmony Fusion system. The Aptima SARS-CoV-2 assay is [...] information. Performed By: #### 3 [id number] #### [facility] [address] [place] [address], [place] CO2 [Moles/Vol] 23 mmol/L Normal 21-31 [facility] Comment on above: Order Comment: The A ptima SARS-CoV-2 assay is a nucleic acid amplification test intended for the qualitative detection of RNA from SARS-CoV-2 isolated and purified from nasopharyngeal (LUNCH COOK),oropharyngeal (OP), nasal swab, sputum, and bronchoalveolar lavage (BAL) specimens from patients with signs and symptoms of infection who are suspected of COVID-19. Results are for the identification of SARS-CoV-2 RNA. The SARS-CoV-2 RNA is generally detectable during the acute phase of infection. The Aptima SARS-CoV-2 Assay on the Harmony and Harmony Fusion system is intended for use by laboratory personnel specifically instructed and trained in the operation of the Harmony and Harmony Fusion system. The Aptima SARS-CoV-2 assay is [...] information. Performed By: #### 3 [id number] #### [place] [address] Creatinine [Mass/Vol] 1.00 mg/dL Normal 0.60-1.20 [facility] Comment on above: Order Comment: The A ptima SARS-CoV-2 assay is a nucleic acid amplification test intended for the qualitative detection of RNA from SARS-CoV-2 isolated and purified from nasopharyngeal (LUNCH COOK),oropharyngeal (OP), nasal swab, sputum, and bronchoalveolar lavage (BAL) specimens from patients with signs and symptoms of infection who are suspected of COVID-19. Results are for the identification of SARS-CoV-2 RNA. The SARS-CoV-2 RNA is generally detectable during the acute phase of infection. The Aptima SARS-CoV-2 Assay on the Harmony and Harmony Fusion system is intended for use by laboratory personnel specifically instructed and trained in the operation of the Harmony and Harmony Fusion system. The Aptima SARS-CoV-2 assay is [...] information. Performed By: #### 3 [id number] #### [facility] [address] [facility] [place] [address], [facility] eGFR- non- 53 ml/min/1.73sq m Abnormal >60 [facility] Comment on above: Order Comment: The A ptima SARS-CoV-2 assay is a nucleic acid amplification test intended for the qualitative detection of RNA from SARS-CoV-2 isolated and purified from nasopharyngeal (LUNCH COOK),oropharyngeal (OP), nasal swab, sputum, and bronchoalveolar lavage (BAL) specimens from patients with signs and symptoms of infection who are suspected of COVID-19. Results are for the identification of SARS-CoV-2 RNA. The SARS-CoV-2 RNA is generally detectable during the acute phase of infection. The Aptima SARS-CoV-2 Assay on the Harmony and Harmony Fusion system is intended for use by laboratory personnel specifically instructed and trained in the operation of the Harmony and Harmony Fusion system. The Aptima SARS-CoV-2 assay is [...] over 70 years Performed By: #### 3 [id number] #### [facility] [address] [place] [address], [facility] GFR/1.73 sq M.predicted among blacks MDRD (S/P/Bld) [Vol rate/Area] mL/min/{1.73_m2} Normal >60 [facility] Comment on above: Order Comment: The A ptima SARS-CoV-2 assay is a nucleic acid amplification test intended for the qualitative detection of RNA from SARS-CoV-2 isolated and purified from nasopharyngeal (LUNCH COOK),oropharyngeal (OP), nasal swab, sputum, and bronchoalveolar lavage (BAL) specimens from patients with signs and symptoms of infection who are suspected of COVID-19. Results are for the identification of SARS-CoV-2 RNA. The SARS-CoV-2 RNA is generally detectable during the acute phase of infection. The Aptima SARS-CoV-2 Assay on the Sleep.FM and Sleep.FM Fusion system is intended for use by laboratory personnel specifically instructed and trained in the operation of the Sleep.FM and Sleep.FM Fusion system. The Aptima SARS-CoV-2 assay is [...] years Performed By: #### 3 [id number] #### [facility] [address] Glucose [Mass/Vol] 87 mg/dL Normal 70-100 [facility] Comment on above: Order Comment: The A ptima SARS-CoV-2 assay is a nucleic acid amplification test intended for the qualitative detection of RNA from SARS-CoV-2 isolated and purified from nasopharyngeal (LUNCH COOK),oropharyngeal (OP), nasal swab, sputum, and bronchoalveolar lavage (BAL) specimens from patients with signs and symptoms of infection who are suspected of COVID-19. Results are for the identification of SARS-CoV-2 RNA. The SARS-CoV-2 RNA is generally detectable during the acute phase of infection. The Aptima SARS-CoV-2 Assay on the Sleep.FM and Sleep.FM Fusion system is intended for use by laboratory personnel specifically instructed and trained in the operation of the Harmony and Harmony Fusion system. The Aptima SARS-CoV-2 assay is [...] information. Performed By: #### 3 [id number] #### [facility] [address] [place] [address], [facility] Potassium [Moles/Vol] 4.1 mmol/L Normal 3.5-5.1 [facility] Comment on above: Order Comment: The A ptima SARS-CoV-2 assay is a nucleic acid amplification test intended for the qualitative detection of RNA from SARS-CoV-2 isolated and purified from nasopharyngeal (LUNCH COOK),oropharyngeal (OP), nasal swab, sputum, and bronchoalveolar lavage (BAL) specimens from patients with signs and symptoms of infection who are suspected of COVID-19. Results are for the identification of SARS-CoV-2 RNA. The SARS-CoV-2 RNA is generally detectable during the acute phase of infection. The Aptima SARS-CoV-2 Assay on the Harmony and Harmony Fusion system is intended for use by laboratory personnel specifically instructed and trained in the operation of the Harmony and Harmony Fusion system. The Aptima SARS-CoV-2 assay is [...] information. Performed By: #### 3 [id number] #### [facility] [address] [place] [address], [place] Sodium [Moles/Vol] 135 mmol/L Low 136-[address] [facility] Comment on above: Order Comment: The A ptima SARS-CoV-2 assay is a nucleic acid amplification test intended for the qualitative detection of RNA from SARS-CoV-2 isolated and purified from nasopharyngeal (LUNCH COOK),oropharyngeal (OP), nasal swab, sputum, and bronchoalveolar lavage (BAL) specimens from patients with signs and symptoms of infection who are suspected of COVID-19. Results are for the identification of SARS-CoV-2 RNA. The SARS-CoV-2 RNA is generally detectable during the acute phase of infection. The Aptima SARS-CoV-2 Assay on the Harmony and Harmony Fusion system is intended for use by laboratory personnel specifically instructed and trained in the operation of the Harmony and Harmony Fusion system. The Aptima SARS-CoV-2 assay is [...] information. Performed By: #### 3 1792 #### [address] Urea nitrogen [Mass/Vol] 17 mg/dL Normal 7-25 [facility] Comment on above: Order Comment: The A ptima SARS-CoV-2 assay is a nucleic acid amplification test intended for the qualitative detection of RNA from SARS-CoV-2 isolated and purified from nasopharyngeal (LUNCH COOK),oropharyngeal (OP), nasal swab, sputum, and bronchoalveolar lavage (BAL) specimens from patients with signs and symptoms of infection who are suspected of COVID-19. Results are for the identification of SARS-CoV-2 RNA. The SARS-CoV-2 RNA is generally detectable during the acute phase of infection. The Aptima SARS-CoV-2 Assay on the Harmony and Harmony Fusion system is intended for use by laboratory personnel specifically instructed and trained in the operation of the Harmony and Harmony Fusion system. The Aptima SARS-CoV-2 assay is [...] information. Performed By: #### 3 1792 #### [address] CALCIUM IONIZED CBGLon 04-02 IONIZED CALCIUM 1.15 mmol/L Normal 1.12-1.30 [facility] Comment on above: Performed By: #### 8 [id number] #### [address] CBC W/DIFFon 04-02-2022 ABS IMM GRANS 0.5 10*3/uL High 0.0-0.2 [facility] Comment on above: Order Comment: No: D o not add to previous draw Performed By: #### 8 [id number] #### [address] ABS NEUTROPHILS 27.8 10*3/uL High 1.6-7.6 [facility] Comment on above: Order Comment: No: D o not add to previous draw Performed By: #### 8 [id number] #### [address] Basophils (Bld) [#/Vol] 0.2 10*3/uL Normal 0.0-0.2 [facility] Comment on above: Order Comment: No: D o not add to previous draw Performed By: #### 8 [id number] #### [facility] [address] Basophils/100 WBC (Bld) 0.7 % Normal 0.0-1.0 [facility] Comment on above: Order Comment: No: D o not add to previous draw Performed By: #### 8 [id number] #### [facility] [address] [place] [address], [facility] Eosinophils (Bld) [#/Vol] 0.0 10*3/uL Normal 0.0-0.5 [facility] Comment on above: Order Comment: No: D o not add to previous draw Performed By: #### 8 [id number] #### [facility] [address] [place] [id number], [facility] Eosinophils/100 WBC (Bld) 0.1 % Normal 0.0-6.0 [facility] Comment on above: Order Comment: No: D o not add to previous draw Performed By: #### 8 [id number] #### [facility] [address] [place] [address], [facility] Erythrocyte distribution width (RBC) [Ratio] 17.5 % High 11.5-15.0 [facility] Comment on above: Order Comment: No: D o not add to previous draw Performed By: #### 8 [id number] #### [facility] [address] [place] [address], [facility] Hematocrit (Bld) [Volume fraction] 39.1 % Normal 36.0-45.0 [facility] Comment on above: Order Comment: No: D o not add to previous draw Performed By: #### 8 [id number] #### [facility] [address] [place] [id number], [facility] Hemoglobin (Bld) [Mass/Vol] 12.1 g/dL Normal 12.0-15.0 [facility] Comment on above: Order Comment: No: D o not add to previous draw Performed By: #### 8 [id number] #### [facility] [address] [place] [id number], [place] IMMATURE GRANS 1.8 % High 0.0-1.0 [facility] Comment on above: Order Comment: No: D o not add to previous draw Performed By: #### 8 [id number] #### [facility] [address] [place] [address], [facility] Lymphocytes (Bld) [#/Vol] 1.1 10*3/uL Low 1.2-4.0 [facility] Comment on above: Order Comment: No: D o not add to previous draw Performed By: #### 8 [id number] #### [facility] [address] [place] [address], [facility] Lymphocytes/100 WBC (Bld) 3.5 % Low 20.0-45.0 [facility] Comment on above: Order Comment: No: D o not add to previous draw Performed By: #### 8 [id number] #### [facility] [address] [place] [address], [facility] MCH (RBC) [Entitic mass] 30.1 pg Normal 27.0-33.0 [facility] Comment on above: Order Comment: No: D o not add to previous draw Performed By: #### 8 [id number] #### [facility] [address] [facility] [place] [address], [facility] MCHC (RBC) [Mass/Vol] 30.9 g/dL Low 32.0-35.0 [facility] Comment on above: Order Comment: No: D o not add to previous draw Performed By: #### 8 [id number] #### [facility] [address] [facility] [place] [address], [facility] MCV (RBC) [Entitic vol] 97.3 fL Normal 82.0-98.0 [facility] Comment on above: Order Comment: No: D o not add to previous draw Performed By: #### 8 [id number] #### [facility] [address] [place] [id number], [facility] Monocytes (Bld) [#/Vol] 0.6 10*3/uL Normal 0.1-1.0 The [facility] Comment on above: Order Comment: No: D o not add to previous draw Performed By: #### 8 [id number] #### [facility] [address] [place] [address], [place] MONOS 1.8 % Low 5.0-12.0 [facility] Comment on above: Order Comment: No: D o not add to previous draw Performed By: #### 8 [id number] #### [facility] [address] [place] [address], [place] Neutrophils/100 WBC (Bld) 92.1 % High 40.0-72.0 [facility] Comment on above: Order Comment: No: D o not add to previous draw Performed By: #### 8 [id number] #### [facility] [address] [place] [address], [place] Nucleated RBC/100 WBC (Bld) [Ratio] 0 % Normal 0-0 [facility] Comment on above: Order Comment: No: D o not add to previous draw Performed By: #### 8 [id number] #### [facility] [address] [place] [address], [place] PLAT CNT 370 10*3/uL Normal 150-400 The [facility] Comment on above: Order Comment: No: D o not add to previous draw Performed By: #### 8 [id number] #### [facility] [address] [place] [address], [place] RBC (Bld) [#/Vol] 4.02 10*6/uL Normal 3.80-5.00 The [facility] Comment on above: Order Comment: No: D o not add to previous draw Performed By: #### 8 [id number] #### [facility] [address] [place] [address], [place] WBC (Bld) [#/Vol] 30.18 10*3/uL High 4.00-10.60 [facility] Comment on above: Order Comment: No: D o not add to previous draw Performed By: #### 8 [id number] #### [address] [address], [facility] ERCPon 04-02-2022 ERCP [facility] Department of Radiology [address] [place] [id number] ======== Patient Name: MARÍA ELENA TAFOYA : 1940 Sex: F Age: Race: NA Pt. Location: [id number] Patient Status: I Ordered Date: 04/02/2022 3:40:00 [...] details. Electronically signed: Brooke Verduzco. Transcribed by: [email or web address], User Resident: Electronically Signed by: BROOKE VERDUZCO @ 04/03/2022 09:48 AM Normal [facility] Comment on above: Order Comment: Check Stent Position Endoscopy Reporton Endoscopy Report MR#: [id number] [facility] Pt. Name: María Elena Tafoya Surgery Date: 04/02/2022 Room #: [id number] Date of : 1940 PROCEDURE NOTE ATTENDING: Elizabeth Olivo M.D. DERRICK OPERATOR: Felipe Gallo MD. PROCEDURE: ERCP with biliary [...] P/Felipe Gallo MD Date Trans: 04/02/2022 07:10 P/erik DN_JN:[id number] cc: Bennie Albright M.D. [address] [facility] [phone] [place] [facility] LIVER BATTERYon 04-02-2022 Albumin [Mass/Vol] 3.0 g/dL Low 3.5-5.7 [facility] Comment on above: Order Comment: The A ptima SARS-CoV-2 assay is a nucleic acid amplification test intended for the qualitative detection of RNA from SARS-CoV-2 isolated and purified from nasopharyngeal (LUNCH COOK),oropharyngeal (OP), nasal swab, sputum, and bronchoalveolar lavage (BAL) specimens from patients with signs and symptoms of infection who are suspected of COVID-19. Results are for the identification of SARS-CoV-2 RNA. The SARS-CoV-2 RNA is generally detectable during the acute phase of infection. The Aptima SARS-CoV-2 Assay on the Sleep.FM and Sleep.FM Fusion system is intended for use by laboratory personnel specifically instructed and trained in the operation of the Harmony and Sleep.FM Fusion system. The Aptima SARS-CoV-2 assay is [...] information. Performed By: #### 3 [id number] #### [facility] [address] [facility] [address], [facility] ALKALINE PHOSPH 174 IU/L High 34-104 [facility] Comment on above: Order Comment: The A ptima SARS-CoV-2 assay is a nucleic acid amplification test intended for the qualitative detection of RNA from SARS-CoV-2 isolated and purified from nasopharyngeal (LUNCH COOK),oropharyngeal (OP), nasal swab, sputum, and bronchoalveolar lavage (BAL) specimens from patients with signs and symptoms of infection who are suspected of COVID-19. Results are for the identification of SARS-CoV-2 RNA. The SARS-CoV-2 RNA is generally detectable during the acute phase of infection. The Aptima SARS-CoV-2 Assay on the Harmony and Harmony Fusion system is intended for use by laboratory personnel specifically instructed and trained in the operation of the Harmony and Harmony Fusion system. The Aptima SARS-CoV-2 assay is [...] information. Performed By: #### 3 1792 #### [facility] [address] [facility] [address], [facility] ALT [Catalytic activity/Vol] 21 U/L Normal 7-52 [facility] Comment on above: Order Comment: The A ptima SARS-CoV-2 assay is a nucleic acid amplification test intended for the qualitative detection of RNA from SARS-CoV-2 isolated and purified from nasopharyngeal (LUNCH COOK),oropharyngeal (OP), nasal swab, sputum, and bronchoalveolar lavage (BAL) specimens from patients with signs and symptoms of infection who are suspected of COVID-19. Results are for the identification of SARS-CoV-2 RNA. The SARS-CoV-2 RNA is generally detectable during the acute phase of infection. The Aptima SARS-CoV-2 Assay on the Harmony and Harmony Fusion system is intended for use by laboratory personnel specifically instructed and trained in the operation of the Harmony and Harmony Fusion system. The Aptima SARS-CoV-2 assay is [...] information. Performed By: #### 3 1792 #### [address] AST [Catalytic activity/Vol] 9 U/L Low 13-39 [facility] Comment on above: Order Comment: The A ptima SARS-CoV-2 assay is a nucleic acid amplification test intended for the qualitative detection of RNA from SARS-CoV-2 isolated and purified from nasopharyngeal (LUNCH COOK),oropharyngeal (OP), nasal swab, sputum, and bronchoalveolar lavage (BAL) specimens from patients with signs and symptoms of infection who are suspected of COVID-19. Results are for the identification of SARS-CoV-2 RNA. The SARS-CoV-2 RNA is generally detectable during the acute phase of infection. The Aptima SARS-CoV-2 Assay on the Harmony and Harmony Fusion system is intended for use by laboratory personnel specifically instructed and trained in the operation of the Harmony and Harmony Fusion system. The Aptima SARS-CoV-2 assay is [...] information. Performed By: #### 3 1792 #### [facility] [address] Bilirubin [Mass/Vol] 1.9 mg/dL High 0.3-1.0 [facility] Comment on above: Order Comment: The A ptima SARS-CoV-2 assay is a nucleic acid amplification test intended for the qualitative detection of RNA from SARS-CoV-2 isolated and purified from nasopharyngeal (LUNCH COOK),oropharyngeal (OP), nasal swab, sputum, and bronchoalveolar lavage (BAL) specimens from patients with signs and symptoms of infection who are suspected of COVID-19. Results are for the identification of SARS-CoV-2 RNA. The SARS-CoV-2 RNA is generally detectable during the acute phase of infection. The Aptima SARS-CoV-2 Assay on the Sleep.FM and Sleep.FM Fusion system is intended for use by laboratory personnel specifically instructed and trained in the operation of the Harmony and Sleep.FM Fusion system. The Aptima SARS-CoV-2 assay is [...] information. Performed By: #### 3 1792 #### [facility] [address] Bilirubin.direct [Mass/Vol] 0.8 mg/dL High 0.0-0.2 [facility] Comment on above: Order Comment: The A ptima SARS-CoV-2 assay is a nucleic acid amplification test intended for the qualitative detection of RNA from SARS-CoV-2 isolated and purified from nasopharyngeal (LUNCH COOK),oropharyngeal (OP), nasal swab, sputum, and bronchoalveolar lavage (BAL) specimens from patients with signs and symptoms of infection who are suspected of COVID-19. Results are for the identification of SARS-CoV-2 RNA. The SARS-CoV-2 RNA is generally detectable during the acute phase of infection. The Aptima SARS-CoV-2 Assay on the Harmony and Harmony Fusion system is intended for use by laboratory personnel specifically instructed and trained in the operation of the Harmony and Harmony Fusion system. The Aptima SARS-CoV-2 assay is [...] information. Performed By: #### 3 1792 #### [facility] [address] Protein [Mass/Vol] 6.1 g/dL Normal 6.0-8.3 [facility] Comment on above: Order Comment: The A ptima SARS-CoV-2 assay is a nucleic acid amplification test intended for the qualitative detection of RNA from SARS-CoV-2 isolated and purified from nasopharyngeal (LUNCH COOK),oropharyngeal (OP), nasal swab, sputum, and bronchoalveolar lavage (BAL) specimens from patients with signs and symptoms of infection who are suspected of COVID-19. Results are for the identification of SARS-CoV-2 RNA. The SARS-CoV-2 RNA is generally detectable during the acute phase of infection. The Aptima SARS-CoV-2 Assay on the Harmony and Harmony Fusion system is intended for use by laboratory personnel specifically instructed and trained in the operation of the Harmony and Harmony Fusion system. The Aptima SARS-CoV-2 assay is [...] and epidemiological information. Performed By: #### 3 7872 #### [facility] [address] [facility] [place] [address], [facility] MAGNESIUM BLOOD 04-02-2022 Magnesium [Mass/Vol] 1.3 mg/dL Low 1.9-2.7 [facility] Comment on above: Order Comment: The A ptima SARS-CoV-2 assay is a nucleic acid amplification test intended for the qualitative detection of RNA from SARS-CoV-2 isolated and purified from nasopharyngeal (LUNCH COOK),oropharyngeal (OP), nasal swab, sputum, and bronchoalveolar lavage (BAL) specimens from patients with signs and symptoms of infection who are suspected of COVID-19. Results are for the identification of SARS-CoV-2 RNA. The SARS-CoV-2 RNA is generally detectable during the acute phase of infection. The Aptima SARS-CoV-2 Assay on the Sleep.FM and Sleep.FM Fusion system is intended for use by laboratory personnel specifically instructed and trained in the operation of the Harmony and Sleep.FM Fusion system. The Aptima SARS-CoV-2 assay is [...] information. Performed By: #### 3 1792 #### [facility] [address] [facility] [place] [address], [facility] PHOSPHORUS BLOOD Phosphate [Mass/Vol] 2.9 mg/dL Normal 2.5-5.0 [facility] Comment on above: Order Comment: The A ptima SARS-CoV-2 assay is a nucleic acid amplification test intended for the qualitative detection of RNA from SARS-CoV-2 isolated and purified from nasopharyngeal (LUNCH COOK),oropharyngeal (OP), nasal swab, sputum, and bronchoalveolar lavage (BAL) specimens from patients with signs and symptoms of infection who are suspected of COVID-19. Results are for the identification of SARS-CoV-2 RNA. The SARS-CoV-2 RNA is generally detectable during the acute phase of infection. The Aptima SARS-CoV-2 Assay on the Harmony and Harmony Fusion system is intended for use by laboratory personnel specifically instructed and trained in the operation of the Harmony and Harmony Fusion system. The Aptima SARS-CoV-2 assay is [...] information. Performed By: #### 3 1792 #### [facility] [address] [facility] [place] [address], [facility] POC GLUCOSE LABon 04-02-2022 Glucose [Mass/Vol] 126 mg/dL High 70-100 The [facility] Comment on above: Performed By: #### 8 [id number] #### [facility] [address] [place] [address], [facility] Glucose [Mass/Vol] 102 mg/dL High 70-100 The [facility] Comment on above: Performed By: #### 8 [id number] ####[facility] [facility] [place] [address], [facility] Glucose [Mass/Vol] 123 mg/dL High 70-100 The [facility] Comment on above: Performed By: #### 8 5499 #### [facility] [address] [place] [address], [place] Glucose [Mass/Vol] 96 mg/dL Normal 70-100 The [facility] Comment on above: Performed By: #### 8 5499 #### [facility] [address] [place] [address], [place] POC SARS COV2 IDon 2 SARS-CoV-2 (COVID-19) RNA MATTHEW+probe Ql (Unsp spec) Negative Normal NEGATIVE [facility] Comment on above: Result Comment: ID Vandana OW COVID-19 assay performed on the ID [...] Accreditation. Performed By: #### 3 1921 #### [facility] [address] PROTHROMBIN TIMEon 2 INR Coag (PPP) [Relative time] 1.21 {INR} High 0.91-1.16 [facility] Comment on above: Order Comment: [...] 1995;[id number]. Performed By: #### 8 5499 #### [facility] [address] PT Coag (PPP) [Time] 15.3 s High 12.3-14.8 [facility] Comment on above: Order Comment: No: D o not add to previous draw Result Comment: ALL RESULTS MUST BE INTERPRETED WITH RESPECT TO BLOOD DRAWING ARTIFACT OR DILUTION ERROR OF ANTICOAGULANT AT THE TIME OF SAMPLING. Performed By: #### 8 [id number] #### [facility] [address] UFH HEPARIN ASSAYon 04-02-20 22 UNFRACTIONATED HEPARIN 0.96 IU/mL Critically high 0.30-0.70 [facility] Comment on above: Result Comment: Resu lt checked and called. Accurately read back by Eyal Griffin RN at 0543 Rivaroxaban and Apixaban will interfere with the anti Xa assay used to monitor UFH and LMWH. Performed By: #### 8 [id number] #### [facility] [address] *SARS-CoV-2 COVID-19on 04-01 SARS-CoV-2 (COVID-19) RNA MATTHEW+probe Ql (Unsp spec) Not detected Normal Not Detected [facility] Comment on above: Order Comment: The A ptima SARS-CoV-2 assay is a nucleic acid amplification test intended for the qualitative detection of RNA from SARS-CoV-2 isolated and purified from nasopharyngeal (LUNCH COOK),oropharyngeal (OP), nasal swab, sputum, and bronchoalveolar lavage (BAL) specimens from patients with signs and symptoms of infection who are suspected of COVID-19. Results are for the identification of SARS-CoV-2 RNA. The SARS-CoV-2 RNA is generally detectable during the acute phase of infection. The Aptima SARS-CoV-2 Assay on the Harmony and Harmony Fusion system is intended for use by laboratory personnel specifically instructed and trained in the operation of the Harmony and Harmony Fusion system. The Aptima SARS-CoV-2 assay is [...] information. Performed By: #### 3 1792 #### [facility] [address] [facility]. [address] AMMONIAon 04-01-2022 Ammonia (P) [Mass/Vol] ug/dL Critically low 11-32 The [facility] Comment on above: Performed By: #### A MM ####[facility] [address] [place], [place] [address]Dr. Bhavani Barragan APTTon 04-01-2022 aPTT Coag (Bld) [Time] 35.4 s High 25.0-35.0 [facility] Comment on above: Order Comment: [...] PURPOSE. Performed By: #### 8 [id number] #### [facility] [address] [facility]. [address] CBC AUTO DIFFon 04-01-2022 BASO # 0.2 103/ul Critically high 0.0-0.1 The [facility] Comment on above: Performed By: #### C BC ####[facility] [address] [place] [address]Dr. Bhavani Barragan Basophils/100 WBC (Bld) 0.6 % Normal 0.2-2.0 The [facility] Comment on above: Performed By: #### C BC ####[facility] [address] [place] [id number]. Bhavani Barragan EO # 0.0 103/ul Normal 0.0-0.7 The [facility] Comment on above: Performed By: #### C BC ####[facility] [address] [place] [address]Dr. Bhavani Barragan Eosinophils/100 WBC (Bld) 0.1 % Critically low 0.9-7.0 The [facility] Comment on above: Performed By: #### C BC ####[facility] [address] [place], [place] [address]Dr. Bhavani Barragan Erythrocyte distribution width (RBC) [Ratio] 17.8 % Critically high 11.0-15.0 The [facility] Comment on above: Performed By: #### C BC ####[facility] [address] [place], [place] [address]Dr. Bhavani Barragan Hematocrit (Bld) [Volume fraction] 39.0 % Normal 36.0-48.0 The [facility] Comment on above: Performed By: #### C BC ####[facility] [address] [place], [place] [id number]. Bhavani Barragan Hemoglobin (Bld) [Mass/Vol] 11.9 g/dL Critically low 12.0-16.0 The [facility] Comment on above: Performed By: #### C BC ####[facility] [address] [place] [address]Dr. Bhavani Barragan IG # 0.74 10e3/ul Critically high 0.00-0.03 The [facility] Comment on above: Performed By: #### C BC ####[facility] [address] [place], [place] [address]Dr. Bhavani Barragan IG % 2.2 % Critically high 0.0-0.5 The [facility] Comment on above: Performed By: #### C BC ####[facility] [address] [place], [place] [address]Dr. Bhavani Barragan LYMPH # 0.9 103/ul Critically low 1.2-3.[address] [facility] Comment on above: Performed By: #### C BC ####[facility] [address] [place] [id number]. Bhavani Barragan Lymphocytes/100 WBC (Bld) 2.7 % Critically low 20.5-60.0 The [facility] Comment on above: Performed By: #### C BC ####[facility] [address] [place] [id number]. Bhavani Laurel MANUAL DIFF REQ NO Normal The [facility] Comment on above: Performed By: #### C BC ####[facility] [address] [place] [address]Dr. Bhavani Laurel MCH (RBC) [Entitic mass] 29.8 pg Normal 26.7-34.0 The [facility] Comment on above: Performed By: #### C BC ####[facility] [address] [place], [place] [address]Dr. Bhavani Laurel MCHC (RBC) [Mass/Vol] 30.5 g/dL Normal 29.9-35.2 The [facility] Comment on above: Performed By: #### C BC ####[facility] [address] [place] [address]Dr. Bhavani Barragan MCV (RBC) [Entitic vol] 97.5 fL Normal 81.0-99.0 The [facility] Comment on above: Performed By: #### C BC ####[facility] [address] [place] [address]Dr. Jayceeroxi Laurel MONO # 0.6 103/ul Normal 0.3-0.8 The [facility] Comment on above: Performed By: #### C BC ####[facility] [address] [place] [address]Dr. Bhavani Laurel Monocytes/100 WBC (Bld) 1.7 % Normal 1.7-12.0 The [facility] Comment on above: Performed By: #### C BC ####[facility] [address] [place], [place] [address]Dr. Jayceeroxi Barragan NEUT # 30.7 103/ul Critically high 1.4-6.5 The [facility] Comment on above: Performed By: #### C BC ####[facility] [address] [place], [place] [address]Jp. Bhavani Barragan Neutrophils/100 WBC (Bld) 92.7 % Critically high 43.0-75.0 [facility] Comment on above: Performed By: #### C BC ####[facility] [address] [place] [id number]. Bhavani Barragan Platelet mean volume (Bld) [Entitic vol] 9.8 fL Normal 9.5-13.5 [facility] Comment on above: Performed By: #### C BC ####[facility] [address] [place] [id number]. Bhavani Barragan PLT 372 103/ul Normal 150-450 The [facility] Comment on above: Performed By: #### C BC ####[facility] [address] [place] [address]Dr. Bhavani Barragan RBC 4.00 106/ul Critically low 4.20-5.40 The [facility] Comment on above: Performed By: #### C BC ####[facility] [address] [place], [place] [address]Dg. Bhavani Barragan WBC 33.2 103/ul Critically high 4.0-11.0 The [facility] Comment on above: Performed By: #### C BC ####[facility] [address] [place] [id number]. Bhavani Barragan CBC W/DIFFon 04-01-2022 ABS IMM GRANS 0.7 10*3/uL High 0.0-0.2 The [facility] Comment on above: Order Comment: No: D o not add to previous draw Performed By: #### 8 5499 #### [facility] [address] [place] [address], [facility] ABS NEUTROPHILS 30.0 10*3/uL High 1.6-7.6 The [facility] Comment on above: Order Comment: No: D o not add to previous draw Performed By: #### 8 5499 #### [facility] [address] [place] [id number], [facility] Basophils (Bld) [#/Vol] 0.2 10*3/uL Normal 0.0-0.2 [facility] Comment on above: Order Comment: No: D o not add to previous draw Performed By: #### 8 5499 #### [facility] [address] [place] [address], [place] Basophils/100 WBC (Bld) 0.5 % Normal 0.0-1.0 [facility] Comment on above: Order Comment: No: D o not add to previous draw Performed By: #### 8 5499 #### [facility] [address] [place] [id number], [facility] Eosinophils (Bld) [#/Vol] 0.0 10*3/uL Normal 0.0-0.5 [facility] Comment on above: Order Comment: No: D o not add to previous draw Performed By: #### 8 5499 #### [facility] [address] [place] [address], [place] Eosinophils/100 WBC (Bld) 0.1 % Normal 0.0-6.0 [facility] Comment on above: Order Comment: No: D o not add to previous draw Performed By: #### 8 5499 #### [facility] [address] [place] [id number], [facility] Erythrocyte distribution width (RBC) [Ratio] 18.3 % High 11.5-15.0 [facility] Comment on above: Order Comment: No: D o not add to previous draw Performed By: #### 8 5499 #### [facility] [address] [place] [id number], [place] Hematocrit (Bld) [Volume fraction] 40.4 % Normal 36.0-45.0 [facility] Comment on above: Order Comment: No: D o not add to previous draw Performed By: #### 8 5499 #### [facility] [address] [place] [address], [facility] Hemoglobin (Bld) [Mass/Vol] 12.9 g/dL Normal 12.0-15.0 [facility] Comment on above: Order Comment: No: D o not add to previous draw Performed By: #### 8 5499 #### [facility] [address] [place] [address], [facility] IMMATURE GRANS 2.1 % High 0.0-1.0 The [facility] Comment on above: Order Comment: No: D o not add to previous draw Performed By: #### 8 5499 #### [facility] [address] [place] [address], [facility] Lymphocytes (Bld) [#/Vol] 0.8 10*3/uL Low 1.2-4.0 The [facility] Comment on above: Order Comment: No: D o not add to previous draw Performed By: #### 8 5499 #### [facility] [address] [facility] [place] [address], [facility] Lymphocytes/100 WBC (Bld) 2.6 % Low 20.0-45.0 [facility] Comment on above: Order Comment: No: D o not add to previous draw Performed By: #### 8 5499 #### [facility] [address] [facility] [place] [address], [facility] MCH (RBC) [Entitic mass] 30.6 pg Normal 27.0-33.0 [facility] Comment on above: Order Comment: No: D o not add to previous draw Performed By: #### 8 5499 #### [facility] [address] [facility]. [place] [id number], [facility] MCHC (RBC) [Mass/Vol] 31.9 g/dL Low 32.0-35.0 [facility] Comment on above: Order Comment: No: D o not add to previous draw Performed By: #### 8 5499 #### [facility] [address] [place] [address], [facility] MCV (RBC) [Entitic vol] 96.0 fL Normal 82.0-98.0 [facility] Comment on above: Order Comment: No: D o not add to previous draw Performed By: #### 8 [id number] #### [facility] [address] [place] [id number], [facility] Monocytes (Bld) [#/Vol] 0.5 10*3/uL Normal 0.1-1.0 [facility] Comment on above: Order Comment: No: D o not add to previous draw Performed By: #### 8 [id number] #### [facility] [address] [facility] [place] [address], [facility] [facility] 1.7 % Low 5.0-12.0 [facility] Comment on above: Order Comment: No: D o not add to previous draw Performed By: #### 8 [id number] #### [facility] [address] [facility] [place] [address], [facility] Neutrophils/100 WBC (Bld) 93.0 % High 40.0-72.0 [facility] Comment on above: Order Comment: No: D o not add to previous draw Performed By: #### 8 [id number] #### [facility] [address] [facility] [place] [address], [facility] Nucleated RBC/100 WBC (Bld) [Ratio] 0 % Normal 0-0 [facility] Comment on above: Order Comment: No: D o not add to previous draw Performed By: #### 8 [id number] #### [facility] [address] [place] [id number], [place] PLAT CNT 375 10*3/uL Normal 150-400 The [facility] Comment on above: Order Comment: No: D o not add to previous draw Performed By: #### 8 [id number] #### [facility] [address] [place] [id number], [facility] RBC (Bld) [#/Vol] 4.21 10*6/uL Normal 3.80-5.00 [facility] Comment on above: Order Comment: No: D o not add to previous draw Performed By: #### 8 [id number] #### [facility] [address] [place] [address], [facility] WBC (Bld) [#/Vol] 32.19 10*3/uL High 4.00-10.60 [facility] Comment on above: Order Comment: No: D o not add to previous draw Performed By: #### 8 [id number] #### [facility] [address] [place] [address], [facility] COMP METABOLIC PANELon 04-01 Albumin [Mass/Vol] 3.1 g/dL Low 3.5-5.[address] [facility] Comment on above: Order Comment: No: D o not add to previous draw Performed By: #### 2 2706 #### [facility] [address] [place] [address], [place] ALKALINE PHOSPH 208 IU/L High 34-104 The [facility] Comment on above: Order Comment: No: D o not add to previous draw Performed By: #### 2 2706 #### [facility] [address] [place] [address], [place] ALT [Catalytic activity/Vol] 27 U/L Normal 7-52 [facility] Comment on above: Order Comment: No: D o not add to previous draw Performed By: #### 2 2706 #### [facility] [address] [place] [address], [place] AST [Catalytic activity/Vol] 12 U/L Low 13-39 [facility] Comment on above: Order Comment: No: D o not add to previous draw Performed By: #### 2 2706 #### [facility] [address] [place] [address], [place] Bilirubin [Mass/Vol] 1.8 mg/dL High 0.3-1.0 The [facility] Comment on above: Order Comment: No: D o not add to previous draw Performed By: #### 2 2706 #### [facility] [address] [place] [address], [place] Calcium [Mass/Vol] 8.3 mg/dL Low 8.6-10.[address] [facility] Comment on above: Order Comment: No: D o not add to previous draw Performed By: #### 2 2706 #### [facility] [address] [place] [address], [place] Chloride [Moles/Vol] 103 mmol/L Normal 98-107 [facility] Comment on above: Order Comment: No: D o not add to previous draw Performed By: #### 2 2706 #### [facility] [address] [place] [address], [place] CO2 [Moles/Vol] 20 mmol/L Low 21-31 [facility] Comment on above: Order Comment: No: D o not add to previous draw Performed By: #### 2 2706 #### [facility] [address] [place] [address], [place] Creatinine [Mass/Vol] 1.12 mg/dL Normal 0.60-1.20 [facility] Comment on above: Order Comment: No: D o not add to previous draw Performed By: #### 2 2706 #### [facility] [address] [place] [address], [place] eGFR- 56 ml/min/1.73sq m Abnormal >60 [facility] Comment on above: Order Comment: No: D o not add to previous draw Result Comment: Calc ulation may not be valid for patients over 70 years Performed By: #### 2 2976 #### [facility] [address] [place] [address], [place] eGFR- non- 47 ml/min/1.73sq m Abnormal >60 [facility] Comment on above: Order Comment: No: D o not add to previous draw Result Comment: Calc ulation may not be valid for patients over 70 years Performed By: #### 2 2706 #### [facility] [address] [place] [address], [place] Glucose [Mass/Vol] 110 mg/dL High 70-100 [facility] Comment on above: Order Comment: No: D o not add to previous draw Performed By: #### 2 2706 #### [facility] [address] [place] [address], [place] Potassium [Moles/Vol] 4.1 mmol/L Normal 3.5-5.1 [facility] Comment on above: Order Comment: No: D o not add to previous draw Performed By: #### 2 2706 #### [facility] [address] [place] [address], [place] Protein [Mass/Vol] 6.1 g/dL Normal 6.0-8.3 [facility] Comment on above: Order Comment: No: D o not add to previous draw Performed By: #### 2 2706 #### [facility] [address] [place] [address], [place] Sodium [Moles/Vol] 134 mmol/L Low 136-145 [facility] Comment on above: Order Comment: No: D o not add to previous draw Performed By: #### 2 2706 #### [facility] [address] [place] [address], [place] Urea nitrogen [Mass/Vol] 21 mg/dL Normal 7-25 [facility] Comment on above: Order Comment: No: D o not add to previous draw Performed By: #### 2 2706 #### [facility] [address] [place] [address], [place] DIGOXINon 04-01-2022 Digoxin [Mass/Vol] 0.6 ng/mL Low 0.7-2.0 [facility] Comment on above: Performed By: #### 2 2706 #### [facility] [address] [place] [address], [place] DIRECT BILIon 04-01-2022 Bilirubin.direct [Mass/Vol] 0.7 mg/dL High 0.0-0.2 [facility] Comment on above: Order Comment: No: D o not add to previous draw Performed By: #### 2 2706 #### [facility] [address] [place] [address], [place] LIPASEon 04-01-2022 Lipase [Catalytic activity/Vol] 2234.0 U/L Critically high 73.0-393.0 [facility] Comment on above: Performed By: #### L IPA, CMP ####[facility] [address] [place], [place] [address]Lj. Bhavani Barragan LIPASE BLOODon 04-01-2022 LIPASE 354 Units/L High 11-82 The [facility] Comment on above: Order Comment: No: D o not add to previous draw Performed By: #### 2 2706 #### [facility] [address] [place] [address], [place] POC GLUCOSE LABon 04-01-2022 Glucose [Mass/Vol] 114 mg/dL High 70-100 [facility] Comment on above: Performed By: #### 8 5499 #### [facility] [address] [place] [address], [place] Glucose [Mass/Vol] 113 mg/dL High 70-100 [facility] Comment on above: Performed By: #### 8 5499 #### [facility] [address] [place] [address], [place] Glucose [Mass/Vol] 101 mg/dL High 70-100 [facility] Comment on above: Performed By: #### 3 0313 #### [facility] PROF 14(COMP METB)on 022 Albumin [Mass/Vol] 2.0 g/dL Critically low 3.4-5.0 [facility] Comment on above: Performed By: #### L IPA, CMP ####[facility] [address]sw[address] [place] [id number]. Bhavani Barragan Albumin/Globulin [Mass ratio] 0.5 {ratio} Normal [facility] Comment on above: Performed By: #### L IPA, CMP ####[facility] [address] [place] [address]Dr. Bhavani Barragan ALP [Catalytic activity/Vol] 247 U/L Critically high 46-116 [facility] Comment on above: Performed By: #### L IPA, CMP ####[facility] Evgyrh[address]wc[address]46 [place] [address]Dr. Bhavani Barragan ALT [Catalytic activity/Vol] 50 U/L Normal 14-59 [facility] Comment on above: Performed By: #### L IPA, CMP ####[facility] Vepcximaxm2979 [place] [address]Dr. Bhavani Barragan Anion gap [Moles/Vol] 11.2 mmol/L Normal [facility] Comment on above: Performed By: #### L IPA, CMP ####[facility] Clflyljxln0650 [place] [address]Dr. Bhavani Barragan AST [Catalytic activity/Vol] 19 U/L Normal 15-37 [facility] Comment on above: Performed By: #### L IPA, CMP ####[facility] Dst[address] [place], [place] [address]Dr. Bhavani Barragan Bilirubin [Mass/Vol] 1.5 mg/dL Critically high 0.2-1.0 [facility] Comment on above: Performed By: #### L IPA, CMP ####[facility] Kmqcbffhma5215 [place] [address]Dr. Bhavani Barragan Calcium [Mass/Vol] 8.1 mg/dL Critically low 8.5-10.1 [facility] Comment on above: Performed By: #### L IPA, CMP ####[facility] Frkwxvnhtx0267 [place] [address]Dr. Bhavani Barragan Chloride [Moles/Vol] 105 mmol/L Normal 98-107 [facility] Comment on above: Performed By: #### L IPA, CMP ####[facility] [address] [place], [place] [address]Dr. Bhavani Barragan CO2 [Moles/Vol] 25.1 mmol/L Normal 21.0-32.0 [facility] Comment on above: Performed By: #### L IPA, CMP ####[facility] Jngtcond[address] [place], [place] [address]Dr. Bhavani Barragan Creatinine [Mass/Vol] 1.39 mg/dL Critically high 0.55-1.02 [facility] Comment on above: Performed By: #### L IPA, CMP ####[facility] [address]fe[address] [place], [place] [address]Dr. Bhavani Barragan EGFR-AF MICRONESIAN 44 mL/min/1.73m2 Critically low >=60 [facility] Comment on above: Performed By: #### L IPA, CMP ####[facility] H[address]ht[address]rc[address] [place], [place] [address]Dr. Bhavani Barragan EGFR-NON AF MICRONESIAN 36 mL/min/1.73m2 Critically low >=60 [facility] Comment on above: Performed By: #### L IPA, CMP ####[facility] [address] [place], [place] [address]Dr. Bhavani Barragan Globulin (S) [Mass/Vol] 4.3 g/dL Normal [facility] Comment on above: Performed By: #### L IPA, CMP ####[facility] Qxdszqkbrr[address] [place], [place] [address]Dr. Bhavani Barragan Glucose [Mass/Vol] 113 mg/dL Critically high 74-106 T [facility] Comment on above: Performed By: #### L IPA, CMP ####[facility] [address] [place], [place] [address]Dr. Bhavani Barragan Potassium [Moles/Vol] 4.3 mmol/L Normal 3.5-5.1 [facility] Comment on above: Performed By: #### L IPA, CMP ####[facility] [address] [place], [place] [address]Dr. Bhavani Barragan Protein [Mass/Vol] 6.3 g/dL Critically low 6.4-8.2 Th e [facility] Comment on above: Performed By: #### L IPA, CMP ####[facility] [address] [place], [place] [address]Dr. Bhavani Barragan Sodium [Moles/Vol] 137 mmol/L Normal 136-145 [facility] Comment on above: Performed By: #### L IPA, CMP ####[facility] Todv[address]gs[address] [place], [place] [address]Dr. Bhavani Barragan Urea nitrogen [Mass/Vol] 26.0 mg/dL Critically high 7.0-18.0 [facility] Comment on above: Performed By: #### L IPA, CMP ####[facility] [address] [place], [place] [address]Dr. Bhavani Barragan Urea nitrogen/Creatinine [Mass ratio] 18.7 mg/mg Normal [facility] Comment on above: Performed By: #### L IPA, CMP ####[facility] [address] [place], [place] [address]Dr. Bhavani Barragan PROTIMEon 04-01-2022 INR Coag (PPP) [Relative time] 1.14 {INR} Normal [facility] Comment on above: Performed By: #### P TT, PT ####[facility] [address] [place], [place] [address]Dr. Bhavani Barragan INR GUIDELINES SEE BELOW Normal The [facility] Comment on above: Result Comment: WALKER RED INR: 2.0 - 3.0 CONDITIONS NOT LISTED BELOW 2.5 - 3.5 FOR PROSTHETIC HEART VALVE REPLACEMENT 2.5 - 3.5 RECURRENT THROMBOSIS Performed By: #### P TT, PT ####[facility] [address]ou[address] [place], [place] [address]Dr. Bhavani Barragan PT Coag (PPP) [Time] 12.2 s Critically high 9.0-11.6 [facility] Comment on above: Performed By: #### P TT, PT ####[facility] [address] [place], [place] [address]Gg. Bhavani Barragan PTTon 04-01-2022 aPTT Coag (Bld) [Time] 25.4 s Normal 22.3-36.2 The [facility] Comment on above: Performed By: #### P TT, PT ####[facility] [address] [place], [place] [address]Hc. Bhavani Barragan TROPONIN-Ion 04-01-2022 Troponin I.cardiac [Mass/Vol] 0.02 ng/mL Normal 0.00-0.04 [facility] Comment on above: Result Comment: REFE RENCE RANGES: 0.00 - 0.04 ng/ml NORMAL 0.05 - 0.50 ng/ml INDETERMINATE > 0.50 ng/ml CONSISTENT WITH AN M.I. Performed By: #### 2 2706 #### [facility] [address] [facility]. [address] UFH HEPARIN ASSAYon 04-01-20 UNFRACTIONATED HEPARIN >1.00 Critically high 0.30-0.70 [facility] Comment on above: Result Comment: Resu lt checked and called. Accurately read back by EYAL GRIFFIN RN ON 04/01/2022 AT 22:07 Rivaroxaban and Apixaban will interfere with the anti Xa assay used to monitor UFH and LMWH. Performed By: #### 8 5499 #### [facility] [address] [facility]. [address] UNFRACTIONATED HEPARIN >1.00 Critically high 0.30-0.70 [facility] Comment on above: Result Comment: Resu lt checked and called. Accurately read back by YANICK MICHAELS RN ON 04/01/2022 AT 16:07 Rivaroxaban and Apixaban will interfere with the anti Xa assay used to monitor UFH and LMWH. Performed By: #### 8 [id number] #### [facility] [address] [facility] [address], [facility] AMMONIAon 03-31-2022 Ammonia (P) [Mass/Vol] ug/dL Critically low 11-32 The [facility] Comment on above: Performed By: #### A MM ####[facility] [address]fe[address] [place], [place] [address]Dr. Bhavani Barragan CBC AUTO DIFFon 03-31-2022 BASO # 0.1 103/ul Normal 0.0-0.1 The [facility] Comment on above: Performed By: #### C BC ####[facility] [address] [place], [place] [address]Dr. Jayceeroxi Barragan Basophils/100 WBC (Bld) 0.4 % Normal 0.2-2.0 The [facility] Comment on above: Performed By: #### C BC ####[facility] [address]xoz[address] [place], [place] [address]Dr. Bhavani Barragan EO # 0.0 103/ul Normal 0.0-0.7 The [facility] Comment on above: Performed By: #### C BC ####[facility] [address] [place], [place] [address]Dr. Jayceeroxi Barragan Eosinophils/100 WBC (Bld) 0.1 % Critically low 0.9-7.0 The [facility] Comment on above: Performed By: #### C BC ####[facility] [address] [place], [place] [address]Dr. Jayceeroxi Barragan Erythrocyte distribution width (RBC) [Ratio] 17.7 % Critically high 11.0-15.0 The [facility] Comment on above: Performed By: #### C BC ####[facility] [address] [place], [place] [address]Dr. Jayceeroxi Barragan Hematocrit (Bld) [Volume fraction] 36.5 % Normal 36.0-48.0 The [facility] Comment on above: Performed By: #### C BC ####[facility] [address] [place], [place] [address]Dr. Bhavani Barragan Hemoglobin (Bld) [Mass/Vol] 11.5 g/dL Critically low 12.0-16.0 The [facility] Comment on above: Performed By: #### C BC ####[facility] [address] [place] [id number]. Bhavani Barragan IG # 0.38 10e3/ul Critically high 0.00-0.03 [facility] Comment on above: Performed By: #### C BC ####[facility] [address]qi[address] [place] [id number]. Bhavani Barragan IG % 1.2 % Critically high 0.0-0.5 The [facility] Comment on above: Performed By: #### C BC ####[facility] [address]qwg[address] [place] [address]Dr. Bhavani Barragan LYMPH # 0.7 103/ul Critically low 1.2-3.[address] [facility] Comment on above: Performed By: #### C BC ####[facility] [address]zd[address]qsed[address] [place] [address]Dr. Jayceeroxi Barragan Lymphocytes/100 WBC (Bld) 2.4 % Critically low 20.5-60.0 [facility] Comment on above: Performed By: #### C BC ####[facility] [address]le[address] [place] [address]Dr. Bhavani Barragan MANUAL DIFF REQ NO Normal The [facility] Comment on above: Performed By: #### C BC ####[facility] [address]lelojmmil[address] [place] [address]Dr. Bhavani Barragan MCH (RBC) [Entitic mass] 30.3 pg Normal 26.7-34.0 [facility] Comment on above: Performed By: #### C BC ####[facility] If[address] [place], [place] [address]Dr. Bhavani Barragan MCHC (RBC) [Mass/Vol] 31.5 g/dL Normal 29.9-35.2 The [facility] Comment on above: Performed By: #### C BC ####[facility] [address]qqpugnv[address] [place] [address]Dr. Bhavani Barragan MCV (RBC) [Entitic vol] 96.3 fL Normal 81.0-99.0 [facility] Comment on above: Performed By: #### C BC ####[facility] Yqpzpsdxth9951 [place] [id number]. Bhavani Barragan MONO # 0.8 103/ul Normal 0.3-0.8 The [facility] Comment on above: Performed By: #### C BC ####[facility] Jbwzbvkhxe7436 [place] [id number]. Bhavani Barragan Monocytes/100 WBC (Bld) 2.5 % Normal 1.7-12.0 The [facility] Comment on above: Performed By: #### C BC ####[facility] Indxzdhllg8944 [place] [phone]. Bhavani Barragan NEUT # 29.0 103/ul Critically high 1.4-6.5 The [facility] Comment on above: Performed By: #### C BC ####[facility] Npqvwxxppg4702 [place] [phone]. Bhavani Barragan Neutrophils/100 WBC (Bld) 93.4 % Critically high 43.0-75.0 The [facility] Comment on above: Performed By: #### C BC ####[facility] Qegxhjqras5791 [place] [phone]. Bhavani Barragan Platelet mean volume (Bld) [Entitic vol] 10.5 fL Normal 9.5-13.5 The [facility] Comment on above: Performed By: #### C BC ####[facility] Ztcptubwmk7686 [place] [phone]. Bhavani Barragan PLT 346 103/ul Normal 150-450 [facility] Comment on above: Performed By: #### C BC ####[facility] Juccwpvzgj1175 [place] [phone]. Bhavani Barragan RBC 3.79 106/ul Critically low 4.20-5.40 [facility] Comment on above: Performed By: #### C BC ####[facility] Cbxnjhvprc0633 [place] [phone]. Bhavani Barragan WBC 31.0 103/ul Critically high 4.0-11.0 [facility] Comment on above: Performed By: #### C BC ####[facility] Accepvpdkw[address] [place] [address]Dr. Bhavani Barragan CT CHEST WO CONon 03-31-2022 CT CHEST WO CON Normal The [facility] LIPASEon 03-31-2022 Lipase [Catalytic activity/Vol] 3577.0 U/L Critically high 73.0-393.0 [facility] Comment on above: Performed By: #### L IPA ####[facility] Yuvetcomkg9[address] [place] [address]Dr. Bhavani Laurel MRI ABDOMEN WO CONon 022 MRI ABDOMEN WO CON Normal The [facility] POINT OF CARE GLUCOSEon 03-18 Glucose [Mass/Vol] 153 mg/dL Critically high 74-106 [facility] Comment on above: Performed By: #### P OCGLUC ####[facility] [address] [place], [place] [address]Dr. Bhavani Barragan Glucose [Mass/Vol] 158 mg/dL Critically high 74-106 [facility] Comment on above: Performed By: #### P OCGLUC ####[facility] Iq[address]jukgb[address] [place], [place] [address]Dr. Bhavani Barragan Glucose [Mass/Vol] 120 mg/dL Critically high 74-106 [facility] Comment on above: Performed By: #### P OCGLUC ####[facility] Uvytqfwgzp2927 [place] [address]Dr. Jayceeroxi Laurel Glucose [Mass/Vol] 74 mg/dL Normal 74-106 [facility] Comment on above: Performed By: #### P OCGLUC ####[facility] Egdeqhtfyr69[address] [place] [address]Dr. Bhavani Barragan PROF 14(COMP METB)on 022 Albumin [Mass/Vol] 1.9 g/dL Critically low 3.4-5.0 [facility] Comment on above: Performed By: #### C MP ####[facility] Sdopreocxl94[address] [place] [address]Dr. Bhavani Barragan Albumin/Globulin [Mass ratio] 0.5 {ratio} Normal [facility] Comment on above: Performed By: #### C MP ####[facility] Btbqiehdkc5625 [place] [phone]. Bhavani Barragan ALP [Catalytic activity/Vol] 283 U/L Critically high 46-116 [facility] Comment on above: Performed By: #### C MP ####[facility] Juyatwvsgd4945 [place] [phone]. Bhavani Barragan ALT [Catalytic activity/Vol] 64 U/L Critically high 14-59 The [facility] Comment on above: Performed By: #### C MP ####[facility] Fybtwsrdkq4126 [place] [phone]. Bhavani Barragan Anion gap [Moles/Vol] 11.6 mmol/L Normal [facility] Comment on above: Performed By: #### C MP ####[facility] Uotbsxxyir[address] [place] [address]Dr. Bhavani Barragan AST [Catalytic activity/Vol] 52 U/L Critically high 15-37 [facility] Comment on above: Performed By: #### C MP ####[facility] Itzzpmkgzu2433 [place] [address]Dr. Bhavani Barragan Bilirubin [Mass/Vol] 2.8 mg/dL Critically high 0.2-1.0 [facility] Comment on above: Performed By: #### C MP ####[facility] Uxcgxeqerw2020 [place] [phone]. Bhavani Barragan Calcium [Mass/Vol] 7.9 mg/dL Critically low 8.5-10.1 Th [facility] Comment on above: Performed By: #### C MP ####[facility] Nzsbmupimm9348 [place] [phone]. Bhavani Barragan Chloride [Moles/Vol] 102 mmol/L Normal 98-107 [facility] Comment on above: Performed By: #### C MP ####[facility] Hjvqpbbkeq5107 [place] [phone]. Bhavani Barragan CO2 [Moles/Vol] 27.4 mmol/L Normal 21.0-32.0 [facility] Comment on above: Performed By: #### C MP ####[facility] Fqemnkprgr9088 [place] [phone]. Bhavani Barragan Creatinine [Mass/Vol] 1.48 mg/dL Critically high 0.55-1.02 [facility] Comment on above: Performed By: #### C MP ####[facility] [address]ssdrpfic[address] [place], [place] [address]Yn. Bhavani Barragan EGFR-AF MICRONESIAN 41 mL/min/1.73m2 Critically low >=60 [facility] Comment on above: Performed By: #### C MP ####[facility] Mwntfbzhsh5060 [place] [phone]. Bhavani Barragan EGFR-NON AF MICRONESIAN 34 mL/min/1.73m2 Critically low >=60 [facility] Comment on above: Performed By: #### C MP ####[facility] Znfthgxjta4386 [place] [phone]. Bhavani Barragan Globulin (S) [Mass/Vol] 4.0 g/dL Normal [facility] Comment on above: Performed By: #### C MP ####[facility] Rgoqmemdoe9665 [place] [phone]. Bhavani Barragan Glucose [Mass/Vol] 84 mg/dL Normal 74-106 [facility] Comment on above: Performed By: #### C MP ####[facility] Bcgbotmwnt7202 [place] [phone]. Bhavani Barragan Potassium [Moles/Vol] 4.0 mmol/L Normal 3.5-5.1 [facility] Comment on above: Performed By: #### C MP ####[facility] Om[address]ajthft8[address] [place] [phone]. Bhavani Barragan Protein [Mass/Vol] 5.9 g/dL Critically low 6.4-8.2 Th [facility] Comment on above: Performed By: #### C MP ####[facility] [address]pvb[address] [place] [id number]. Bhavani Barragan Sodium [Moles/Vol] 137 mmol/L Normal 136-145 [facility] Comment on above: Performed By: #### C MP ####[facility] Owdwjaerni[address] [place] [address]Dr. Bhavani Barragan Urea nitrogen [Mass/Vol] 26.0 mg/dL Critically high 7.0-18.0 The [facility] Comment on above: Performed By: #### C MP ####[facility] Rlkxkmbted1347 [place] [address]Dr. Bhavani Barragan Urea nitrogen/Creatinine [Mass ratio] 17.6 mg/mg Normal The [facility] Comment on above: Performed By: #### C MP ####[facility] Jdzwomigmt8846 [place] [address]Dr. Bhavani Barragan PROTIMEon 03-31-2022 INR Coag (PPP) [Relative time] 1.34 {INR} Normal The [facility] Comment on above: Performed By: #### P T, PTT ####[facility] Gwzheq[address]ccs[address] [place], [place] [address]Dr. Bhavani Barragan INR GUIDELINES SEE BELOW Normal The [facility] Comment on above: Result Comment: WALKER RED INR: 2.0 - 3.0 CONDITIONS NOT LISTED BELOW 2.5 - 3.5 FOR PROSTHETIC HEART VALVE REPLACEMENT 2.5 - 3.5 RECURRENT THROMBOSIS Performed By: #### P T, PTT ####[facility] Vmthvzxzsd[address] [place], [place] [address]Dr. Bhavani Barragan PT Coag (PPP) [Time] 14.2 s Critically high 9.0-11.6 The [facility] Comment on above: Performed By: #### P T, PTT ####[facility] Igznopjiti033[address] [place], [place] [address]Dr. Bhavani Barragan PTTon 03-31-2022 aPTT Coag (Bld) [Time] 37.6 s Critically high 22.3-36.2 The [facility] Comment on above: Performed By: #### P T, PTT ####[facility] Swdzajrqoy[address] [place], [place] [address]Dr. Bhavani Barragan XR CHEST 1 Von 03-31-2022 XR CHEST 1 V Normal The [facility] AMMONIAon 03-30-2022 Ammonia (P) [Moles/Vol] 30 umol/L Normal 11-32 The [facility] Comment on above: Performed By: #### A MM ####[facility] Yeuepmqqpp1046 [place] [address]Dr. Bhavani Barragan CBC W MANUAL DIFFon 03-30-20 22 ATYPICAL LYMPH # Normal The [facility] Comment on above: Performed By: #### C OMID ####[facility] Vwjtlicphc8442 [place] [address]Dr. Bhavani Barragan ATYPICAL LYMPH % Normal The [facility] Comment on above: Performed By: #### C OMID ####[facility] Ffmsunghin2234 [place] [address]Dr. Bhavani Laurel BAND # Normal 0.0-0.3 The [facility] Comment on above: Performed By: #### Jany ANNE ####[facility] Mojyiffjun[address] [place], [place] [address]Dr. Bhavani Barragan BAND % Normal 0-5 The [facility] Comment on above: Performed By: #### Jany ANNE ####[facility] Ccldnudniq[address] [place], [place] [address]Dr. Bhavani Barragan BASOM # 0.00 103/ul Normal 0.00-0.10 The [facility] Comment on above: Performed By: #### Jany ANNE ####[facility] Gfcreyeurc0702 [place] [address]Dr. Bhavani Barragan BASOM % 0.0 % Critically low 0.2-2.[address] [facility] Comment on above: Performed By: #### Jany ANNE ####[facility] Uabvtrvwmc7158 [place] [address]Dr. Bhavani Barragan BLAST # Normal The [facility] Comment on above: Performed By: #### Jany ANNE ####[facility] Qspsgoigid037[address] [place], [place] [address]Dr. Bhavani Barragan BLAST % Normal The [facility] Comment on above: Performed By: #### Jany ANNE ####[facility] Ttkjzdbqfd0476 [place] [address]Dr. Bhavani Barragan CORRECTED WBC Normal 4.0-11.0 The [facility] Comment on above: Performed By: #### C OMID ####[facility] Gflriyivry5153 [place], [place] [address]Cq. Bhavani Barargan EOS # 0.00 103/ul Normal 0.00-0.70 [facility] Comment on above: Performed By: #### C OMID ####[facility] Hwfmmrtqxx9844 [place] [id number]. Bhavani Barragan EOS% 0.0 % Critically low 0.9-7.0 [facility] Comment on above: Performed By: #### C OMID ####[facility] Uhyoxgbfsb0070 [place] [id number]. Bhavani Barragan HCT 39.8 % Normal 36.0-48.0 [facility] Comment on above: Performed By: #### C OMID ####[facility] Uhwkshkgis9406 [place] [id number]. Bhavani Barragan HGB 12.2 g/dl Normal 12.0-16.0 [facility] Comment on above: Performed By: #### Jany ANNE ####[facility] Lmyadxpqze3029 [place] [id number]. Bhavani Barragan LYMPHM # 0.56 103/ul Critically low 1.20-3.80 The [facility] Comment on above: Performed By: #### Jany ANNE ####[facility] Wcfkygdada6183 [place] [id number]. Bhavani Barragan LYMPHM% 2.0 % Critically low 20.5-60.[address] [facility] Comment on above: Performed By: #### Jany ANNE ####[facility] Jujkezjbti9978 [place] [id number]. Bhavani Barragan MCH 29.7 pg Normal 26.7-34.0 The [facility] Comment on above: Performed By: #### C OMID ####[facility] Dbxpkihkon9236 [place] [id number]. Bhavani Barragan MCHC 30.7 g/dl Normal 29.9-35.2 The [facility] Comment on above: Performed By: #### C OMID ####[facility] Tsnzgxeskx6712 [place] [id number]. Bhavani Barragan MCV 96.8 fL Normal 81.0-99.0 [facility] Comment on above: Performed By: #### C OMID ####[facility] Zymfnkrluo5866 [place] [id number]. Bhavani Barragan METAMYELOCYTE # Normal The [facility] Comment on above: Performed By: #### C OMID ####[facility] Jvmldochip7828 [place] [address]Dr. Bhavani Barragan METAMYELOCYTE % Normal [facility] Comment on above: Performed By: #### C OMID ####[facility] Rxvnfjoqlp538[address] [place], [place] [address]Dr. Bhavani Barragan MONOM# 0.28 103/ul Critically low 0.30-0.80 [facility] Comment on above: Performed By: #### C OMID ####[facility] Slugjnmkak[address] [place], [place] [address]Dr. Bhavani Barragan MONOM% 1.0 % Critically low 1.7-12.0 [facility] Comment on above: Performed By: #### Jany ANNE ####[facility] Fzfhrpunji698[address] [place], [place] [address]Dr. Bhavani Barragan MPV 10.2 fL Normal 9.5-13.5 [facility] Comment on above: Performed By: #### C OMID ####[facility] P[address]qcsgjthg[address] [place], [place] [address]Dr. Bhavani Barragan MYELOCYTE # Normal The [facility] Comment on above: Performed By: #### C OMID ####[facility] Citcqfkrad3598 [place] [address]Dr. Bhavani Barragan MYELOCYTE % Normal The [facility] Comment on above: Performed By: #### C OMID ####[facility] Rpnkxdtpyw0692 [place] [address]Dr. Bhavani Barragan NRBC Normal [facility] Comment on above: Performed By: #### C OMID ####[facility] Efpmgxhphk2454 [place], [place] [address]Aa. Bhavani Barragan PLT 371 103/ul Normal 150-450 [facility] Comment on above: Performed By: #### C OMID ####[facility] Hjudkahfcs0639 [place], [place] [address]Sk. Bhavani Barragan RBC 4.11 106/ul Critically low 4.20-5.40 [facility] Comment on above: Performed By: #### C OMID ####[facility] Qnibteyubm9673 [place] [id number]. Bhavani Barragan RDW 17.4 % Critically high 11.0-15.0 [facility] Comment on above: Performed By: #### C OMID ####[facility] Jfzzltvumr1977 [place] [id number]. Bhavani Barragan SEG # 27.35 103/ul Critically high 1.40-6.50 [facility] Comment on above: Performed By: #### C OMID ####[facility] Jkmqvymvfz1298 [place] [id number]. Bhavani Barragan SEG % 97.0 % Critically high 43.0-75.0 [facility] Comment on above: Performed By: #### C OMID ####[facility] Xntkksghjv8768 [place] [id number]. Bhavani Barragan WBC 28.2 103/ul Critically high 4.0-11.0 [facility] Comment on above: Performed By: #### C OMID ####[facility] Gbygtkwwxy4998 [place] [id number]. Bhavani Barraagn POINT OF CARE GLUCOSEon 05-1 Glucose [Mass/Vol] 92 mg/dL Normal 74-106 [facility] Comment on above: Performed By: #### P OCGLUC ####[facility] Fkcjmqaljj6899 [place] [id number]. Bhavani Barragan Glucose [Mass/Vol] 122 mg/dL Critically high 74-106 [facility] Comment on above: Result Comment: Foll ow Protocol Performed By: #### P OCGLUC ####[facility] Vbwivlemlb5984 [place] [address]Dr. Bhavani Barragan Glucose [Mass/Vol] 107 mg/dL Critically high 74-106 T [facility] Comment on above: Performed By: #### P OCGLUC ####[facility] Jesuucwfmm65[address] [place], [place] [address]Dr. Bhavani Barragan PROF 14(COMP METB)on 022 Albumin [Mass/Vol] 2.0 g/dL Critically low 3.4-5.0 Th e [facility] Comment on above: Performed By: #### C MP ####[facility] Mblxylihnj712[address] [place], [place] [address]Dr. Bhavani Barragan Albumin/Globulin [Mass ratio] 0.5 {ratio} Normal [facility] Comment on above: Performed By: #### C MP ####[facility] Wuxhtjogqm206[address] [place], [place] [address]Dr. Bhavani Barragan ALP [Catalytic activity/Vol] 298 U/L Critically high 46-116 [facility] Comment on above: Performed By: #### C MP ####[facility] Iqzzpsycqu998[address] [place], [place] [address]Dr. Bhavani Barragan ALT [Catalytic activity/Vol] 94 U/L Critically high 14-59 [facility] Comment on above: Performed By: #### C MP ####[facility] Bswzqysxrv500[address] [place], [place] [address]Dr. Bhavani Barragan Anion gap [Moles/Vol] 12.8 mmol/L Normal [facility] Comment on above: Performed By: #### C MP ####[facility] Ijhddpageu354[address] [place], [place] [address]Dr. Bhavani Barragan AST [Catalytic activity/Vol] 73 U/L Critically high 15-37 [facility] Comment on above: Performed By: #### C MP ####[facility] Weqavvjqey0059[address] [place], [place] [address]Dr. Bhavani Barragan Bilirubin [Mass/Vol] 3.6 mg/dL Critically high 0.2-1.0 [facility] Comment on above: Performed By: #### C MP ####[facility] Sqymojjtpx4444 [place] [id number]. Bhavani Barragan Calcium [Mass/Vol] 7.8 mg/dL Critically low 8.5-10.1 Th [facility] Comment on above: Performed By: #### C MP ####[facility] Prrhhilace3561 [place] [id number]. Bhavani Barragan Chloride [Moles/Vol] 103 mmol/L Normal 98-107 [facility] Comment on above: Performed By: #### C MP ####[facility] Icjmedgqvo4576 [place] [id number]. Bhavani Barragan CO2 [Moles/Vol] 25.2 mmol/L Normal 21.0-32.0 [facility] Comment on above: Performed By: #### C MP ####[facility] Hjmtlqfbzf0434 [place] [id number]. Bhavani Barragan Creatinine [Mass/Vol] 1.38 mg/dL Critically high 0.55-1.02 [facility] Comment on above: Performed By: #### C MP ####[facility] Alidbejuiw3000 [place] [id number]. Bhavani Barragan EGFR-AF MICRONESIAN 44 mL/min/1.73m2 Critically low >=60 [facility] Comment on above: Performed By: #### C MP ####[facility] Gwhbjquwjb9354 [place] [id number]. Bhavani Laurel EGFR-NON AF MICRONESIAN 37 mL/min/1.73m2 Critically low >=60 [facility] Comment on above: Performed By: #### C MP ####[facility] Hvbzencvtn8282 [place] [id number]. Bhavani Barragan Globulin (S) [Mass/Vol] 4.1 g/dL Normal [facility] Comment on above: Performed By: #### C MP ####[facility] Nevdxifgra9909 [place] [id number]. Bhavani Laurel Glucose [Mass/Vol] 109 mg/dL Critically high 74-106 T [facility] Comment on above: Performed By: #### C MP ####[facility] Kpzirlwoun8116 [place] [id number]. Bhavani Barragan Potassium [Moles/Vol] 4.0 mmol/L Normal 3.5-5.1 [facility] Comment on above: Performed By: #### C MP ####[facility] Zbktjpjbgm[address] [place], [place] [address]Dr. Bhavani Barragan Protein [Mass/Vol] 6.1 g/dL Critically low 6.4-8.2 Th [facility] Comment on above: Performed By: #### C MP ####[facility] Gbjknlepkk5[address] [place], [place] [address]Dr. Bhavani Barragan Sodium [Moles/Vol] 137 mmol/L Normal 136-145 [facility] Comment on above: Performed By: #### C MP ####[facility] Jkghquritn99[address] [place], [place] [address]Dr. Bhavani Barragan Urea nitrogen [Mass/Vol] 22.0 mg/dL Critically high 7.0-18.0 [facility] Comment on above: Performed By: #### C MP ####[facility] Limgkcvbfq05[address] [place], [place] [address]Dr. Bhavani Barragan Urea nitrogen/Creatinine [Mass ratio] 15.9 mg/mg Normal [facility] Comment on above: Performed By: #### C MP ####[facility] Atwpjdnowt197[address] [place], [place] [address]Dr. Bhavani Barragan PROTIMEon 03-30-2022 INR Coag (PPP) [Relative time] 1.28 {INR} Normal [facility] Comment on above: Performed By: #### P T, PTT ####[facility] Ujsnnwmseh9214[address] [place], [place] [address]Dr. Bhavani Barragan INR GUIDELINES SEE BELOW Normal [facility] Comment on above: Result Comment: WALKER RED INR: 2.0 - 3.0 CONDITIONS NOT LISTED BELOW 2.5 - 3.5 FOR PROSTHETIC HEART VALVE REPLACEMENT 2.5 - 3.5 RECURRENT THROMBOSIS Performed By: #### P T, PTT ####[facility] Kjalsijgko6[address] [place], [place] [address]Dr. Bhavani Barragan PT Coag (PPP) [Time] 13.6 s Critically high 9.0-11.6 The [facility] Comment on above: Performed By: #### P T, PTT ####[facility] Pfzdisdgxj5494 [place] [address]Dr. Bahvani Barragan PTTon 03-30-2022 aPTT Coag (Bld) [Time] 34.9 s Normal 22.3-36.2 The [facility] Comment on above: Performed By: #### P T, PTT ####[facility] Stgunqkylw911[address] [place], [place] [address]Dr. Jayceeroxi Barragan US SINGLE QUAD RT UPPERon US SINGLE QUAD RT UPPER Normal The [facility] AMMONIAon 03-29-2022 Ammonia (P) [Moles/Vol] 17 umol/L Normal 11-32 The [facility] Comment on above: Performed By: #### A MM ####[facility] Uedmggvlhl4[address] [place], [place] [address]Dr. Jayceeroxi Laurel CBC W MANUAL DIFFon 03-29-20 ANISOCYTOSIS 2+ Normal The [facility] Comment on above: Performed By: #### C OMID ####[facility] Nrogwxrvsc33[address] [place], [place] [address]Dr. Jayceeroxi Barragan ATYPICAL LYMPH # Normal [facility] Comment on above: Performed By: #### C BCMAN ####[facility] Akvdtcgrqv68[address] [place], [place] [address]Dr. Bhavani Barragan ATYPICAL LYMPH % Normal [facility] Comment on above: Performed By: #### C BCMAN ####[facility] Egwfdveygd5600 [place] [address]Dr. Bhavani Barragan BAND # 1.2 103/ul Critically high 0.0-0.3 [facility] Comment on above: Performed By: #### C BCMAN ####[facility] Ypwqbgoykk9491 [place] [address]Dr. Bhavani Barragan BAND % 4 % Normal 0-5 The [facility] Comment on above: Performed By: #### C BCMAN ####[facility] Tftnyzgjkl6101 [place] [address]Dr. Bhavani Barragan BASOM # 0.00 103/ul Normal 0.00-0.10 [facility] Comment on above: Performed By: #### C OMID ####[facility] Rpagaidsgx0897 [place] [address]Dr. Bhavani Barragan BASOM % 0.0 % Critically low 0.2-2.[address] [facility] Comment on above: Performed By: #### C BCJERSON ####[facility] Vvmweyxjlk1527 [place] [address]Dr. Bhavani Barragan BLAST # Normal [facility] Comment on above: Performed By: #### C OMID ####[facility] Zcyaftbraq[address] [place], [place] [address]Dr. Bhavani Barragan BLAST % Normal [facility] Comment on above: Performed By: #### C OMID ####[facility] Vqzzpzgpei318[address] [place], [place] [address]Dr. Bhavani Barragan CORRECTED WBC Normal 4.0-11.0 The [facility] Comment on above: Performed By: #### C OMID ####[facility] Mgaewvwwgl[address] [place], [place] [address]Dr. Bhavani Barragan EOS # 0.00 103/ul Normal 0.00-0.70 [facility] Comment on above: Performed By: #### C OMID ####[facility] Qtbebipyjm8885[address] [place], [place] [address]Dr. Bhavani Barragan EOS% 0.0 % Critically low 0.9-7.[address] [facility] Comment on above: Performed By: #### C OMID ####[facility] Yzmsepelmg8[address] [place], [place] [address]Dr. Bhavani Barragan HCT 41.4 % Normal 36.0-48.0 [facility] Comment on above: Performed By: #### C OMID ####[facility] Xmmzchnjag794[address] [place], [place] [address]Dr. Bhavani Barragan HGB 12.6 g/dl Normal 12.0-16.0 [facility] Comment on above: Performed By: #### C OMID ####[facility] Ywgucedhej9271 [place], [place] [address]Gj. Bhavani Barragan LYMPHM # 0.62 103/ul Critically low 1.20-3.80 [facility] Comment on above: Performed By: #### C OMID ####[facility] Oyfidgxbgz6830 [place] [id number]. Bhavani Barragan LYMPHM% 2.0 % Critically low 20.5-60.[address] [facility] Comment on above: Performed By: #### C OMID ####[facility] Dwcziafdgr0993 [place] [id number]. Bhavani Barragan MCH 29.6 pg Normal 26.7-34.0 [facility] Comment on above: Performed By: #### C OMID ####[facility] Jslvbxqews4627 [place] [id number]. Bhavani Barragan MCHC 30.4 g/dl Normal 29.9-35.2 [facility] Comment on above: Performed By: #### C OMID ####[facility] Fvafgaxusq7038 [place] [phone]. Bhavani Barragan MCV 97.4 fL Normal 81.0-99.0 The [facility] Comment on above: Performed By: #### C OMID ####[facility] Yrbkhpaxgo0539 [place] [phone]. Bhavani Barragan METAMYELOCYTE # Normal [facility] Comment on above: Performed By: #### C OMID ####[facility] Qxpdznnrib4875 [place] [id number]. Bhavani Barragan METAMYELOCYTE % Normal [facility] Comment on above: Performed By: #### C OMID ####[facility] Jmaqcaollx7684 [place] [id number]. Bhavani Barragan MONOM# 0.93 103/ul Critically high 0.30-0.80 [facility] Comment on above: Performed By: #### C OMID ####[facility] Mzivyrnhjn0493 [place] [id number]. Bhavani Barragan MONOM% 3.0 % Normal 1.7-12.0 [facility] Comment on above: Performed By: #### C OMID ####[facility] Gguyaqimnv2331 [place] [phone]. Bhavani Barragan MPV 9.7 fL Normal 9.5-13.5 [facility] Comment on above: Performed By: #### C OMID ####[facility] Eyvwbdmkoi1858 [place] [phone]. Bhavani Barragan MYELOCYTE # Normal [facility] Comment on above: Performed By: #### C OMID ####[facility] Bbrltfmwqc2932 [place] [phone]. Bhavani Barragan MYELOCYTE % Normal [facility] Comment on above: Performed By: #### C OMID ####[facility] Wcqlsraywx2509 [place] [phone]. Bhavani Barragan NRBC Normal [facility] Comment on above: Performed By: #### C OMID ####[facility] Zbaipztpcy2135 [place] [phone]. Bhavani Barragan PLT 362 103/ul Normal 150-450 [facility] Comment on above: Performed By: #### C OMID ####[facility] Gfvxhrjkze3854 [place] [phone]. Bhavani Barragan RBC 4.25 106/ul Normal 4.20-5.40 [facility] Comment on above: Performed By: #### C OMID ####[facility] Daxgpkvfub5870 [place] [phone]. Bhavani Barragan RDW 17.2 % Critically high 11.0-15.0 [facility] Comment on above: Performed By: #### C OMID ####[facility] Jtcijgbtsn6388 [place] [phone]. Bhavani Barragan SEG # 28.12 103/ul Critically high 1.40-6.50 [facility] Comment on above: Performed By: #### C OMID ####[facility] Kjfmhimwks8128 [place] [phone]. Bhavani Barragan SEG % 91.0 % Critically high 43.0-75.0 [facility] Comment on above: Performed By: #### C BCMAN ####[facility] Gwxmdkbrlx7425 [place] [phone]. Bhavani Barragan WBC 30.9 103/ul Critically high 4.0-11.0 [facility] Comment on above: Result Comment: repe ated Performed By: #### C BCMAN ####[facility] Ngaepnglch4678 [place] [phone]. Bhavani Barragan CT ABD/PELV W CONon 03-29-20 CT ABD/PELV W CON Normal [facility] POINT OF CARE GLUCOSEon 03-18 Glucose [Mass/Vol] 102 mg/dL Normal 74-106 [facility] Comment on above: Performed By: #### P OCGLUC ####[facility] Kvrddbcsko9024 [place] [address]Dr. Bhavani Laurel Glucose [Mass/Vol] 100 mg/dL Normal 74-106 [facility] Comment on above: Performed By: #### P OCGLUC ####[facility] Bfwcckqjtx4323 [place] [phone]. Bhavani Barragan Glucose [Mass/Vol] 132 mg/dL Critically high 74-106 [facility] Comment on above: Performed By: #### P OCGLUC ####[facility] Axvjsrnayw0025 [place] [phone]. Bhavani Laurel Glucose [Mass/Vol] 130 mg/dL Critically high 74-106 [facility] Comment on above: Performed By: #### P OCGLUC ####[facility] Auettzbhcr2064 [place] [phone] Barragan PROF 14(COMP METB)on 022 Albumin [Mass/Vol] 2.1 g/dL Critically low 3.4-5.0 [facility] Comment on above: Performed By: #### C MP ####[facility] Uznjxoguxc1429 [place] [address]DrLydia Bhavani Laurel Albumin/Globulin [Mass ratio] 0.6 {ratio} Normal [facility] Comment on above: Performed By: #### C MP ####[facility] Vrwsjnpfsy2615 [place] [address]Dr. Bhavani Barragan ALP [Catalytic activity/Vol] 277 U/L Critically high 46-116 [facility] Comment on above: Performed By: #### C MP ####[facility] Plcxqavldk0692 [place] [address]Dr. Bhavani Barragan ALT [Catalytic activity/Vol] 90 U/L Critically high 14-59 [facility] Comment on above: Performed By: #### C MP ####[facility] Jonnipvnwg2142 [place] [address]Dr. Bhavani Laurel Anion gap [Moles/Vol] 13.1 mmol/L Normal [facility] Comment on above: Performed By: #### C MP ####[facility] Bqstehrpap3106 [place] [address]Dr. Bhavani Laurel AST [Catalytic activity/Vol] 56 U/L Critically high 15-37 [facility] Comment on above: Performed By: #### C MP ####[facility] Aqjlschuoc5451 [place] [address]Dr. Bhavani Laurel Bilirubin [Mass/Vol] 4.1 mg/dL Critically high 0.2-1.0 [facility] Comment on above: Performed By: #### C MP ####[facility] Rkcidaciwb7936 [place] [address]Dr. Jayceeroxi Laurel Calcium [Mass/Vol] 7.9 mg/dL Critically low 8.5-10.1 Th [facility] Comment on above: Performed By: #### C MP ####[facility] Ycpeyfdbgy350[address] [place] [address]Dr. Bhavani Barragan Chloride [Moles/Vol] 103 mmol/L Normal 98-107 [facility] Comment on above: Performed By: #### C MP ####[facility] Nsjenwhgbc0030 [place] [address]Dr. Bhavani Barragan CO2 [Moles/Vol] 25.9 mmol/L Normal 21.0-32.0 [facility] Comment on above: Performed By: #### C MP ####[facility] Zcijvejsbb1778 [place], [place] [address]Zd. Bhavani Barragan Creatinine [Mass/Vol] 1.32 mg/dL Critically high 0.55-1.02 [facility] Comment on above: Performed By: #### C MP ####[facility] Jqanccfmhk5129 [place], [place] [address]Pm. Bhavani Barragan EGFR-AF MICRONESIAN 47 mL/min/1.73m2 Critically low >=60 [facility] Comment on above: Performed By: #### C MP ####[facility] Wodefsclwj5571 [place] [id number]. Bhavani Barragan EGFR-NON AF MICRONESIAN 39 mL/min/1.73m2 Critically low >=60 [facility] Comment on above: Performed By: #### C MP ####[facility] Ojipgifnjk7539 [place] [phone]. Bhavani Barragan Globulin (S) [Mass/Vol] 3.7 g/dL Normal [facility] Comment on above: Performed By: #### C MP ####[facility] Ahjlvpnrgs5965 [place] [phone]. Bhavani Barragan Glucose [Mass/Vol] 133 mg/dL Critically high 74-106 [facility] Comment on above: Performed By: #### C MP ####[facility] Qisvppswbj9139 [place] [phone]. Bhavani Barragan Potassium [Moles/Vol] 4.0 mmol/L Normal 3.5-5.1 [facility] Comment on above: Performed By: #### C MP ####[facility] Qlcgovzoms9807 [place], [place] [address]Dx. Bhavani Barragan Protein [Mass/Vol] 5.8 g/dL Critically low 6.4-8.2 Th [facility] Comment on above: Performed By: #### C MP ####[facility] Yezyevhyvj1795 [place] [phone]. Bhavani Barragan Sodium [Moles/Vol] 138 mmol/L Normal 136-145 [facility] Comment on above: Performed By: #### C MP ####[facility] Hdpqqbhtdt[address] [place], [place] [address]Dr. Bhavani Barragan Urea nitrogen [Mass/Vol] 19.0 mg/dL Critically high 7.0-18.0 [facility] Comment on above: Performed By: #### C MP ####[facility] Adpiolspgc864[address] [place], [place] [address]Dr. Bhavani Barragan Urea nitrogen/Creatinine [Mass ratio] 14.4 mg/mg Normal [facility] Comment on above: Performed By: #### C MP ####[facility] Esqilukery6969[address] [place], [place] [address]Dr. Jayceeroxi Laurel PROTIMEon 03-29-2022 INR Coag (PPP) [Relative time] 1.33 {INR} Normal [facility] Comment on above: Performed By: #### P T, PTT ####[facility] Mcvwpbwabj14[address] [place], [place] [address]Dr. Bhavani Barragan INR GUIDELINES SEE BELOW Normal The [facility] Comment on above: Result Comment: WALKER RED INR: 2.0 - 3.0 CONDITIONS NOT LISTED BELOW 2.5 - 3.5 FOR PROSTHETIC HEART VALVE REPLACEMENT 2.5 - 3.5 RECURRENT THROMBOSIS Performed By: #### P T, PTT ####[facility] Dmgkuhyyac07[address] [place], [place] [address]Dr. Bhavani Barragan PT Coag (PPP) [Time] 14.1 s Critically high 9.0-11.6 The [facility] Comment on above: Performed By: #### P T, PTT ####[facility] Qagzmihufm9264[address] [place], [place] [address]Dr. Bhavani Barragan PTTon 03-29-2022 aPTT Coag (Bld) [Time] 36.0 s Normal 22.3-36.2 [facility] Comment on above: Performed By: #### P T, PTT ####[facility] Ffnaqhvmln7[address] [place], [place] [address]Dr. Bhavani Barragan AMMONIAon 03-28-2022 Ammonia (P) [Moles/Vol] 22 umol/L Normal 11-32 The [facility] Comment on above: Performed By: #### A MM ####[facility] Tqxqnvlaad0539 [place] [address]Dr. Bhavani Barragan CBC W MANUAL DIFFon 03-28-20 22 ANISOCYTOSIS 2+ Normal [facility] Comment on above: Performed By: #### C BCJERSON ####[facility] Rsipivqreb9406 [place] [address]Dr. Bhavani Barragan ATYPICAL LYMPH # Normal The [facility] Comment on above: Performed By: #### C BCJERSON ####[facility] Ypckjfjkzb6644 [place] [address]Dr. Yiroxi Barragan ATYPICAL LYMPH % Normal [facility] Comment on above: Performed By: #### C OMID ####[facility] Rftfhzvxun68[address] [place], [place] [address]Dr. Bhavani Barragan BAND # 0.8 103/ul Critically high 0.0-0.3 The [facility] Comment on above: Performed By: #### C BCJERSON ####[facility] Rzqanlrjgz[address] [place], [place] [address]Dr. Yilan Barragan BAND % 3 % Normal 0-5 The [facility] Comment on above: Performed By: #### C BCEJRSON ####[facility] Dinmxarprh914[address] [place], [place] [address]Dr. Bhavani Barragan BASOM # 0.00 103/ul Normal 0.00-0.10 The [facility] Comment on above: Performed By: #### C BCJERSON ####[facility] Qyedmzcqdp16[address] [place], [place] [address]Dr. Bhavani Barragan BASOM % 0.0 % Critically low 0.2-2.[address] [facility] Comment on above: Performed By: #### C BCMAN ####[facility] Ygxjlgtemr80[address] [place], [place] [address]Dr. Jayceelan Barragan BLAST # Normal The [facility] Comment on above: Performed By: #### C BCJERSON ####[facility] Pymikbltcp456[address] [place], [place] [address]Dr. Yilan Barragan BLAST % Normal The [facility] Comment on above: Performed By: #### C OMID ####[facility] Jrrtpxmlin1021 [place] [phone]. Bhavani Barragan CORRECTED WBC Normal 4.0-11.0 The [facility] Comment on above: Performed By: #### C OMID ####[facility] Gipjxojlvh1859 [place] [phone]. Bhavani Barragan EOS # 0.00 103/ul Normal 0.00-0.70 [facility] Comment on above: Performed By: #### C OMID ####[facility] Gmvalmcddk0822 [place] [phone]. Bhavani Barragan EOS% 0.0 % Critically low 0.9-7.[address] [facility] Comment on above: Performed By: #### C OMID ####[facility] Hgzpcqhwgx6678 [place] [phone]. Bhavani Barragan HCT 38.9 % Normal 36.0-48.0 [facility] Comment on above: Performed By: #### C OMID ####[facility] Mvngypjrjo1615 [place] [phone]. Bhavani Barragan HGB 11.9 g/dl Critically low 12.0-16.[address] [facility] Comment on above: Performed By: #### Jany ANNE ####[facility] Mkwtnmsxmr2505 [place] [phone]. Bhavani Barragan LYMPHM # 0.78 103/ul Critically low 1.20-3.80 The [facility] Comment on above: Performed By: #### C OMID ####[facility] Ufbosqohrw5203 [place] [phone]. Bhavani Barragan LYMPHM% 3.0 % Critically low 20.5-60.[address] [facility] Comment on above: Performed By: #### C OMID ####[facility] Hzpequhyyn7973 [place] [phone]. Bhavani Barragan MCH 29.8 pg Normal 26.7-34.0 The [facility] Comment on above: Performed By: #### C OMID ####[facility] Xftrnwootz0704 [place] [phone]. Bhavani Barragan MCHC 30.6 g/dl Normal 29.9-35.2 The [facility] Comment on above: Performed By: #### C OMID ####[facility] Zqqilpvknl5042 [place] [phone]. Bhavani Barragan MCV 97.3 fL Normal 81.0-99.0 The [facility] Comment on above: Performed By: #### C OMID ####[facility] Sziyipnjjo9905 [place] [phone]. Bhavani Barragan METAMYELOCYTE # Normal The [facility] Comment on above: Performed By: #### C OMID ####[facility] Vgfmazeunq9096 [place] [phone]. Bhavani Barragan METAMYELOCYTE % Normal The [facility] Comment on above: Performed By: #### Jany ANNE ####[facility] Wqvwokuasi13[address] [place], [place] [address]Dr. Bhavani Barragan MONOM# 0.78 103/ul Normal 0.30-0.80 [facility] Comment on above: Performed By: #### Jany ANNE ####[facility] Ostwudtqtk[address] [place], [place] [address]Dr. Bhavani Barragan MONOM% 3.0 % Normal 1.7-12.0 [facility] Comment on above: Performed By: #### Jany ANNE ####[facility] Xtjxhgwpyv[address] [place], [place] [address]Dr. Bhavani Barragan MPV 10.6 fL Normal 9.5-13.5 The [facility] Comment on above: Performed By: #### Jany ANNE ####[facility] Mzmstysivs4956 [place] [phone]. Bhavani Barragan MYELOCYTE # Normal The [facility] Comment on above: Performed By: #### Jany ANNE ####[facility] Jaleabrwpp6036 [place] [phone]. Bhavani Barragan MYELOCYTE % Normal The [facility] Comment on above: Performed By: #### Jany ANNE ####[facility] Hrfkqfizdm4260 [place], [place] [address]Nj. Bhavani Barragan NRBC Normal [facility] Comment on above: Performed By: #### C OMID ####[facility] Pplcllxpag4170 [place], [place] [address]Lh. Bhavani Barragan PLT 402 103/ul Normal 150-450 [facility] Comment on above: Performed By: #### C OMID ####[facility] Okxoaadzqq6657 [place] [phone]. Bhavani Barragan RBC 4.00 106/ul Critically low 4.20-5.40 [facility] Comment on above: Performed By: #### C OMID ####[facility] Lavjpsovvs6263 [place] [phone]. Bhavani Barragan RDW 16.7 % Critically high 11.0-15.0 [facility] Comment on above: Performed By: #### C OMID ####[facility] Kftgbkpxxz6612 [place] [phone]. Bhavani Barragan SEG # 23.66 103/ul Critically high 1.40-6.50 [facility] Comment on above: Performed By: #### C OMID ####[facility] Hfaiwfxcxc1151 [place] [phone]. Bhavani Barragan SEG % 91.0 % Critically high 43.0-75.0 [facility] Comment on above: Performed By: #### C OMID ####[facility] Qmyhqnidhc5535 [place] [phone]. Bhavani Barragan WBC 26.0 103/ul Critically high 4.0-11.0 [facility] Comment on above: Performed By: #### C OMID ####[facility] Pmchonxvhl3226 [place] [phone]. Bhavani Barragan PROF 14(COMP METB)on 022 Albumin [Mass/Vol] 2.1 g/dL Critically low 3.4-5.0 [facility] Comment on above: Performed By: #### C MP ####[facility] Bjickuhquj2951 [place] [address]Dr. Bhavani Laurel Albumin/Globulin [Mass ratio] 0.6 {ratio} Normal [facility] Comment on above: Performed By: #### C MP ####[facility] Zjxqosdrir7610 [place] [address]Dr. Jayceeroxi Barragan ALP [Catalytic activity/Vol] 235 U/L Critically high 46-116 [facility] Comment on above: Performed By: #### C MP ####[facility] Udrzeyvdcd94[address] [place], [place] [address]Dr. Bhavani Barragan ALT [Catalytic activity/Vol] 112 U/L Critically high 14-59 [facility] Comment on above: Performed By: #### C MP ####[facility] Fapsvusxkh6097[address] [place], [place] [address]Dr. Bhavani Barragan Anion gap [Moles/Vol] 12.3 mmol/L Normal [facility] Comment on above: Performed By: #### C MP ####[facility] Cxahjjcvpb4230[address] [place], [place] [address]Dr. Jayceeroxi Barragan AST [Catalytic activity/Vol] 57 U/L Critically high 15-37 [facility] Comment on above: Performed By: #### C MP ####[facility] Ihbtkaerxy718[address] [place], [place] [address]Dr. Bhavani Barragan Bilirubin [Mass/Vol] 1.6 mg/dL Critically high 0.2-1.0 [facility] Comment on above: Performed By: #### C MP ####[facility] Otxdudzmvt9[address] [place], [place] [address]Dr. Bhavani Barragan Calcium [Mass/Vol] 7.6 mg/dL Critically low 8.5-10.1 Th e [facility] Comment on above: Performed By: #### C MP ####[facility] Aigeqriyvx246[address] [place], [place] [address]Dr. Bhavani Barragan Chloride [Moles/Vol] 104 mmol/L Normal 98-107 The [facility] Comment on above: Performed By: #### C MP ####[facility] Dpviyrpcmu125[address] [place], [place] [address]Dr. Bhavani Barragan CO2 [Moles/Vol] 25.5 mmol/L Normal 21.0-32.0 [facility] Comment on above: Performed By: #### C MP ####[facility] Imssykrgda4[address] [place], [place] [address]Dr. Bhavani Laurel Creatinine [Mass/Vol] 1.28 mg/dL Critically high 0.55-1.02 [facility] Comment on above: Performed By: #### C MP ####[facility] Kpnuzkvhtk13[address] [place], [place] [address]Dr. Bhavani Laurel EGFR-AF MICRONESIAN 48 mL/min/1.73m2 Critically low >=60 [facility] Comment on above: Performed By: #### C MP ####[facility] Bfujfcydnf1717[address] [place], [place] [address]Dr. Bhavani Barragan EGFR-NON AF MICRONESIAN 40 mL/min/1.73m2 Critically low >=60 [facility] Comment on above: Performed By: #### C MP ####[facility] Okedfdspng724[address] [place], [place] [address]Dr. Jayceeroxi Barragan Globulin (S) [Mass/Vol] 3.7 g/dL Normal [facility] Comment on above: Performed By: #### C MP ####[facility] Bqxqtvgsju4499[address] [place], [place] [address]Dr. Bhavani Barragan Glucose [Mass/Vol] 69 mg/dL Critically low 74-106 Th [facility] Comment on above: Performed By: #### C MP ####[facility] Yrnsuzsyzs8798[address] [place], [place] [address]Dr. Bhavani Barragan Potassium [Moles/Vol] 3.8 mmol/L Normal 3.5-5.1 [facility] Comment on above: Performed By: #### C MP ####[facility] Rusvbgqilm8267[address] [place], [place] [address]Dr. Bhavani Barragan Protein [Mass/Vol] 5.8 g/dL Critically low 6.4-8.2 Th [facility] Comment on above: Performed By: #### C MP ####[facility] Qsvzwjezlg20264[address] [place], [place] [address]Dr. Bhavani Barragan Sodium [Moles/Vol] 138 mmol/L Normal 136-145 The [facility] Comment on above: Performed By: #### C MP ####[facility] Ogwkwhwaxu7827 [place] [address]Dr. Bhavani Barragan Urea nitrogen [Mass/Vol] 18.0 mg/dL Normal 7.0-18.0 [facility] Comment on above: Performed By: #### C MP ####[facility] Fdhrjhvlfp5437[address] [place], [place] [address]Dr. Bhavani Barragan Urea nitrogen/Creatinine [Mass ratio] 14.1 mg/mg Normal [facility] Comment on above: Performed By: #### C MP ####[facility] Wtvkycfruo6540[address] [place], [place] [address]Dr. Bhavani Barragan PROTIMEon 03-28-2022 INR Coag (PPP) [Relative time] 1.38 {INR} Normal [facility] Comment on above: Performed By: #### P T, PTT ####[facility] Malzhkuuwl9035[address] [place], [place] [address]Dr. Bhavani Barragan INR GUIDELINES SEE BELOW Normal The [facility] Comment on above: Result Comment: WALKER RED INR: 2.0 - 3.0 CONDITIONS NOT LISTED BELOW 2.5 - 3.5 FOR PROSTHETIC HEART VALVE REPLACEMENT 2.5 - 3.5 RECURRENT THROMBOSIS Performed By: #### P T, PTT ####[facility] Hvvobxrtcj7514[address] [place], [place] [address]Dr. Bhavani Barragan PT Coag (PPP) [Time] 14.6 s Critically high 9.0-11.6 The [facility] Comment on above: Performed By: #### P T, PTT ####[facility] Pdqwbccuyv9097[address] [place], [place] [address]Dr. Bhavani Barragan PTTon 03-28-2022 aPTT Coag (Bld) [Time] 36.6 s Critically high 22.3-36.2 [facility] Comment on above: Performed By: #### P T, PTT ####[facility] Fofzxvffvd16[address] [place], [place] [address]Dr. Bhavani Barragan RESPIRATORY PANEL PLUSon Adenovirus Not detected Normal NOT DETECTED The [facility] Comment on above: Performed By: #### R SPLUS ####[facility] Gnrdzqrkuu4812[address] [place], [place] [address]Dr. Bhavani Barragan B. Parapertusis Not detected Normal NOT DETECTED The [facility] Comment on above: Performed By: #### R SPLUS ####[facility] Bfffiryerv2667[address] [place], [place] [address]Dr. Bhavani Barragan B. Pertussis Not detected Normal NOT DETECTED [facility] Comment on above: Performed By: #### R SPLUS ####[facility] Garjvaactq9938[address] [place], [place] [address]Dr. Bhavani Barragan Chlamydia Pneumoniae Not detected Normal NOT DETECTED The [facility] Comment on above: Performed By: #### R SPLUS ####[facility] Jmnolvufvq6345[address] [place], [place] [address]Dr. roxi Barragan Coronavirus 229E Not detected Normal NOT DETECTED The [facility] Comment on above: Performed By: #### R SPLUS ####[facility] Preoaggaza0933[address] [place], [place] [address]Dr. roxi Barragan Coronavirus HKU1 Not detected Normal NOT DETECTED The [facility] Comment on above: Performed By: #### R SPLUS ####[facility] Ttpkralbpa2497[address] [place], [place] [address]Dr. [facility] Coronavirus NL63 Not detected Normal NOT DETECTED The [facility] Comment on above: Performed By: #### R SPLUS ####[facility] Ukxgijflhu9449[address] [place], [place] [address]Dr. [facility] Coronavirus OC43 Not detected Normal NOT DETECTED The [facility] Comment on above: Performed By: #### R SPLUS ####[facility] Rohthpxgoq5870[address] [place], [place] [address]Dr. Jayceeroxi Barragan Influenza A H1 2009 Not detected Normal NOT DETECTED [facility] Comment on above: Performed By: #### R SPLUS ####[facility] Hmdrlixzta[address] [place], [place] [address]Dr. Bhavani Barragan Influenza A H3 Not detected Normal NOT DETECTED The [facility] Comment on above: Performed By: #### R SPLUS ####[facility] Knilsyhydt3[address] [place] [address]Dr. hBavani Barragan Influenza B Not detected Normal NOT DETECTED [facility] Comment on above: Performed By: #### R SPLUS ####[facility] Dklgutfgfo2027[address] [place], [place] [address]Dr. Bhavani Barragan Metapneumovirus Not detected Normal NOT DETECTED The [facility] Comment on above: Performed By: #### R SPLUS ####[facility] Xgukribqsk8057[address] [place], [place] [address]Dr. Bhavani Barragan Mycoplas. Pneumoniae Not detected Normal NOT DETECTED The [facility] Comment on above: Performed By: #### R SPLUS ####[facility] Mknttwqmwj155[address] [place], [place] [address]Dr. Bhavani Barragan Parainfluenza 1 Not detected Normal NOT DETECTED The [facility] Comment on above: Performed By: #### R SPLUS ####[facility] Ttjtunfhqy316[address] [place], [place] [address]Dr. Bhavani Barragan Parainfluenza 2 Not detected Normal NOT DETECTED The [facility] Comment on above: Performed By: #### R SPLUS ####[facility] Hrdmpgeuip332[address] [place], [place] [address]Dr. Bhavani Barragan Parainfluenza 3 Not detected Normal NOT DETECTED The [facility] Comment on above: Performed By: #### R SPLUS ####[facility] Yexffmtpvr0614[address] [place], [place] [address]Dr. Bhavani Barragan Parainfluenza 4 Not detected Normal NOT DETECTED The [facility] Comment on above: Performed By: #### R SPLUS ####[facility] Qdyryyzmee8432[address] [place], [place] [address]Dr. Bhavani Barragan Rhino/Enterovirus Not detected Normal NOT DETECTED The [facility] Comment on above: Performed By: #### R SPLUS ####[facility] Pkjjjadeit776[address] [place], [place] [address]Dr. Bhavani Barragan RP2 Header 1 RESPIRATORY PANEL: VIRUSES Normal The [facility] Comment on above: Performed By: #### R SPLUS ####[facility] Nbythxedrb6795[address] [place], [place] [address]Dr. Bhavani Barragan RP2 Header 2 RESPIRATORY PANEL: BACTERIA Normal The [facility] Comment on above: Performed By: #### R SPLUS ####[facility] Otpmwpzzqv2097[address] [place], [place] [address]Dr. Bhavani Barragan RSV Not detected Normal NOT DETECTED The [facility] Comment on above: Performed By: #### R SPLUS ####[facility] Dmwrgppllk[address] [place], [place] [address]Dr. Bhavani Barragan SARS-CoV-2 (COVID-19) RNA MATTHEW+probe Ql (Unsp spec) Not detected Normal NOT DETECTED [facility] Comment on above: Performed By: #### R SPLUS ####[facility] Yzpandmipy158[address] [place], [place] [address]Dr. Bhavani Barragan AMMONIAon 03-27-2022 Ammonia (P) [Moles/Vol] 22 umol/L Normal 11-32 [facility] Comment on above: Performed By: #### A MM ####[facility] Zbsekhragp7[address] [place], [place] [address]Dr. Bhavani Barragan BLOOD GASES BTYon 03-27-2022 02 MODE NASAL CANNULA Normal The [facility] Comment on above: Performed By: #### A BG ####[facility] Qklzkjpwam8397[address] [place], [place] [address]Dr. Bhavani Barragan ALLENS TEST Positive Normal The [facility] Comment on above: Performed By: #### A BG ####[facility] Glmbgadgbl1767[address] [place], [place] [address]Dr. Bhavani Barragan Base excess Calc (Bld) [Moles/Vol] 1.4 mmol/L Normal -2.0-2.0 [facility] Comment on above: Performed By: #### A BG ####[facility] Qkpmczotet99264[address] [place], [place] [address]Dr. Bhavani Barragan BIPAP PRESSURE Normal The [facility] Comment on above: Performed By: #### A BG ####[facility] Dmklumiwhp8920 [place] [address]Dr. Bhavani Barragan CO2 [Moles/Vol] 50.8 mmol/L Critically high 23.0-28.0 The [facility] Comment on above: Performed By: #### A BG ####[facility] Conlqijrvg[address] [place] [address]Dr. Bhavani Barragan CPAP Normal [facility] Comment on above: Performed By: #### A BG ####[facility] Wtuvwlivay3670 [place] [address]Dr. Bhavani Barragan FIO2 Normal [facility] Comment on above: Performed By: #### A BG ####[facility] Fixyddzgwk023[address] [place], [place] [address]Dr. Bhavani Barragan HCO3 (Bld) [Moles/Vol] 25.6 mmol/L Normal 22.0-26.0 The [facility] Comment on above: Performed By: #### A BG ####[facility] Dfvqsuyibq3[address] [place], [place] [address]Dr. Bhavain Barragan LPM 5 Normal The [facility] Comment on above: Performed By: #### A BG ####[facility] Nciqebxwjr17[address] [place], [place] [address]Dr. Bhavani Barragan MINUTE VOLUME Normal The [facility] Comment on above: Performed By: #### A BG ####[facility] Xmlroeljqr7745[address] [place], [place] [address]Dr. Bhavani Barragan Oxygen (Bld) [Partial pressure] 56.6 mm[Hg] Critically low 80.0-100.0 The [facility] Comment on above: Performed By: #### A BG ####[facility] Rcewxnatuq5257[address] [place], [place] [address]Dr. Bhavani Barragan Oxygen saturation in Blood 91.3 % Critically low 95.0-100.0 The [facility] Comment on above: Performed By: #### A BG ####[facility] [address]miefosgk217[address] [place], [place] [address]Dr. Bhavani Barragan PCO2 36.1 mmHg Normal 35.0-45.0 The [facility] Comment on above: Performed By: #### A BG ####[facility] Aodxonvqxt6770 [address] [place] [address]Dr. Bhavani Barragan PEEP [facility] Comment on above: Performed By: #### A BG ####[facility] Cirwoubqlc6427 [place] [address]Dr. Bhavani Barragan pH (Bld) 7.454 [pH] Critically high 7.350-7.450 [facility] Comment on above: Performed By: #### A BG ####[facility] Rzhhuvsnmv7786 [place] [address]Dr. Bhavani Barragan PIP [facility] Comment on above: Performed By: #### A BG ####[facility] Wslmgrfgwt[address] [place], [place] [address]Dr. Bhavani Barragan PS [facility] Comment on above: Performed By: #### A BG ####[facility] Gptadxktoe[address] [place], [place] [address]Dr. Bhavani Barragan PUNCTURE SITE LR Normal [facility] Comment on above: Performed By: #### A BG ####[facility] Bhkythzovk[address] [place], [place] [address]Dr. Bhavani Barragan RATE [facility] Comment on above: Performed By: #### A BG ####[facility] Lqjqrhimbd5674 [place] [address]Dr. Bhavani Barragan VENT MODE [facility] Comment on above: Performed By: #### A BG ####[facility] Kaxgmvlxba6350 [place] [address]Dr. Bhavani Barragan [place] [facility] Comment on above: Performed By: #### A BG ####[facility] Jkaoxwjeaq17[address] [place], [place] [address]Dr. Bhavani Barragan CBC W MANUAL DIFFon 03-27-20 22 ANISOCYTOSIS 2+ [facility] Comment on above: Performed By: #### C BCMAN ####[facility] Hcjdybakkw[address] [place], [place] [address]Dr. Bhavani Barragan ATYPICAL LYMPH # Normal [facility] Comment on above: Performed By: #### C BCMAN ####[facility] Jwvhxstifx4925 [place] [phone]. Bhavani Barragan ATYPICAL LYMPH % Normal [facility] Comment on above: Performed By: #### C BCMAN ####[facility] Dfvddwdvms0018 [place], [place] [address]Qs. Yilan Barragan BAND # 1.5 103/ul Critically high 0.0-0.3 [facility] Comment on above: Performed By: #### C BCMAN ####[facility] Vbeepzimzk8480 [place] [phone]. Yilan Barragan BAND % 5 % Normal 0-5 [facility] Comment on above: Performed By: #### C BCJERSON ####[facility] Eqmssikjjk5789 [place] [phone]. Bhavani Barragan BASOM # 0.00 103/ul Normal 0.00-0.10 [facility] Comment on above: Performed By: #### C BCJERSON ####[facility] Bgqhshbdjn6423 [place] [address]Dr. Bhavani Barragan BASOM % 0.0 % Critically low 0.2-2.[address] [facility] Comment on above: Performed By: #### C BCMAN ####[facility] Zkabfhpywl0001 [place] [phone]. Bhavani Barragan BLAST # Normal [facility] Comment on above: Performed By: #### C BCJERSON ####[facility] Rbsqrcxcwh1499 [place] [phone]. Yilan Barragan BLAST % Normal [facility] Comment on above: Performed By: #### C BCJERSON ####[facility] Ojizhymvtx8868 [place] [phone]. Bhavani Barragan CORRECTED WBC Normal 4.0-11.0 The [facility] Comment on above: Performed By: #### C BCJERSON ####[facility] Avwdhzpsfv1500 [place] [phone]. Jayceelan Barragan EOS # 0.00 103/ul Normal 0.00-0.70 [facility] Comment on above: Performed By: #### C OMID ####[facility] Vlihyrlija8760 [place], [place] [address]Tr. Bhavani Barragan EOS% 0.0 % Critically low 0.9-7.0 [facility] Comment on above: Performed By: #### C OMID ####[facility] Grxvkjgich0123 [place], [place] [address]Ok. Bhavani Barragan HCT 41.4 % Normal 36.0-48.0 [facility] Comment on above: Performed By: #### C OMDI ####[facility] Dodviwxypt7493 [place], [place] [address]Ya. Bhavani Barragan HGB 13.0 g/dl Normal 12.0-16.0 [facility] Comment on above: Performed By: #### C OMID ####[facility] Fnwjdbcdvz7986 [place], [place] [address]Nc. Bhavani Barragan LYMPHM # 0.60 103/ul Critically low 1.20-3.80 [facility] Comment on above: Performed By: #### C OMID ####[facility] Lwihtpaxds7984 [place], [place] [address]Vm. Bhavani Barragan LYMPHM% 2.0 % Critically low 20.5-60.[address] [facility] Comment on above: Performed By: #### C OMID ####[facility] Ypnjiuksis2901 [place], [place] [address]Zu. Bhavani Barragan MCH 30.1 pg Normal 26.7-34.0 [facility] Comment on above: Performed By: #### C OMID ####[facility] Hrnqvmqoev5344 [place], [place] [address]Fj. Bhavani Barragan MCHC 31.4 g/dl Normal 29.9-35.2 [facility] Comment on above: Performed By: #### C OMID ####[facility] Dpjahdzain8213 [place], [place] [address]Yx. Bhavani Barragan MCV 95.8 fL Normal 81.0-99.0 [facility] Comment on above: Performed By: #### C OMID ####[facility] Gkycuhfpwx0850 [place] [phone]. Bhavani Barragan METAMYELOCYTE # Normal [facility] Comment on above: Performed By: #### C OMID ####[facility] Flcejdbjjj9790 [place] [phone]. Bhavani Barragan METAMYELOCYTE % Normal [facility] Comment on above: Performed By: #### C OMID ####[facility] Pmuibistpc6320 [place] [phone]. Bhavani Barragan MONOM# 0.91 103/ul Critically high 0.30-0.80 [facility] Comment on above: Performed By: #### C OMID ####[facility] Kordczyrsd46[address] [place], [place] [address]Dr. Bhavani Barragan MONOM% 3.0 % Normal 1.7-12.0 [facility] Comment on above: Performed By: #### C OMID ####[facility] Zbziibjmzy[address] [place], [place] [address]Dr. Bhavani Barragan MPV 10.4 fL Normal 9.5-13.5 [facility] Comment on above: Performed By: #### Jany ANNE ####[facility] Lmsugmmcuf8[address] [place], [place] [address]Dr. Bhavani Barragan MYELOCYTE # Normal [facility] Comment on above: Performed By: #### C OMID ####[facility] Vseluueedh1898 [place] [address]Dr. Bhavani Barragan MYELOCYTE % Normal [facility] Comment on above: Performed By: #### C OMID ####[facility] Nszsqfqqsp4212 [place] [phone]. Bhavani Barragan NRBC Normal [facility] Comment on above: Performed By: #### C OMID ####[facility] Mbowftwkqb212[address] [place], [place] [address]Dr. Bhavani Barragan PLT 431 103/ul Normal 150-450 [facility] Comment on above: Performed By: #### C OMID ####[facility] Kzusodhhwp384[address] [place], [place] [address]Dr. Bhavani Barrgaan RBC 4.32 106/ul Normal 4.20-5.40 [facility] Comment on above: Performed By: #### C OMID ####[facility] Yamwzzxhft4216 [place] [address]Dr. Bhavani Barragan RDW 16.4 % Critically high 11.0-15.0 [facility] Comment on above: Performed By: #### C OMID ####[facility] Skxtzdbhcu4176 [place] [address]Dr. Bhavani Barragan SEG # 27.18 103/ul Critically high 1.40-6.50 [facility] Comment on above: Performed By: #### C OMID ####[facility] Jwlhqqrjvy8482 [place] [address]Dr. Bhavani Barragan SEG % 90.0 % Critically high 43.0-75.0 [facility] Comment on above: Performed By: #### C OMID ####[facility] Eircmjujpz4046 [place] [address]Dr. Bhavani Barragan WBC 30.2 103/ul Critically high 4.0-11.0 [facility] Comment on above: Performed By: #### C OMID ####[facility] Rfcrckyqol2926 [place] [address]Dr. Bhavani Barragan CTA CHEST WO W CONon 022 CTA CHEST WO W CON Normal [facility] POINT OF CARE GLUCOSEon 03-18 Glucose [Mass/Vol] 94 mg/dL Normal 74-106 [facility] Comment on above: Performed By: #### P OCGLUC ####[facility] Ttraygaldo2173 [place] [address]Dr. Bhavani Barragan Glucose [Mass/Vol] 131 mg/dL Critically high 74-106 [facility] Comment on above: Performed By: #### P OCGLUC ####[facility] Tratjbfiyb6231 [place] [address]Dr. Bhavani Barragan Glucose [Mass/Vol] 134 mg/dL Critically high 74-106 [facility] Comment on above: Performed By: #### P OCGLUC ####[facility] Eslcflyocl9949 [place] [address]Dr. Bhavani Barragan PROF 14(COMP METB)on 022 Albumin [Mass/Vol] 2.4 g/dL Critically low 3.4-5.0 [facility] Comment on above: Performed By: #### C MP ####[facility] Tjukvvjmlr4981 [place] [address]Dr. Bhavani Barragan Albumin/Globulin [Mass ratio] 0.6 {ratio} Normal [facility] Comment on above: Performed By: #### C MP ####[facility] Lrqfgbpgbg[address] [place], [place] [address]Dr. Bhavani Barragan ALP [Catalytic activity/Vol] 306 U/L Critically high 46-116 [facility] Comment on above: Performed By: #### C MP ####[facility] Bkavvlyjta17[address] [place], [place] [address]Dr. Bhavani Barragan ALT [Catalytic activity/Vol] 152 U/L Critically high 14-59 [facility] Comment on above: Performed By: #### C MP ####[facility] Rulyitiubt56[address] [place], [place] [address]Dr. Bhavani Barragan Anion gap [Moles/Vol] 8.1 mmol/L Normal [facility] Comment on above: Performed By: #### C MP ####[facility] Tnavmfhbvd6639[address] [place], [place] [address]Dr. Bhavani Barragan AST [Catalytic activity/Vol] 98 U/L Critically high 15-37 [facility] Comment on above: Performed By: #### C MP ####[facility] Pamvovmkmr6[address] [place], [place] [address]Dr. Bhavani Barragan Bilirubin [Mass/Vol] 2.7 mg/dL Critically high 0.2-1.0 [facility] Comment on above: Performed By: #### C MP ####[facility] Hqfkramhbg070[address] [place], [place] [address]Dr. Bhavani Barragan Calcium [Mass/Vol] 7.4 mg/dL Critically low 8.5-10.1 Th [facility] Comment on above: Performed By: #### C MP ####[facility] Rueuprxabi1028 [place] [phone]. Bhavani Barragan Chloride [Moles/Vol] 103 mmol/L Normal 98-107 [facility] Comment on above: Performed By: #### C MP ####[facility] Uapejjugyx0034 [place] [phone]. Bhavani Barragan CO2 [Moles/Vol] 24.7 mmol/L Normal 21.0-32.0 [facility] Comment on above: Performed By: #### C MP ####[facility] Pdddpsjjij2800 [place] [address]Dr. Bhavani Barragan Creatinine [Mass/Vol] 1.07 mg/dL Critically high 0.55-1.02 [facility] Comment on above: Performed By: #### C MP ####[facility] Ikongjiltm1211[address] [place], [place] [address]Dr. Bhavani Laurel EGFR-AF MICRONESIAN 60 mL/min/1.73m2 Normal >=60 [facility] Comment on above: Performed By: #### C MP ####[facility] Fzojwpybmr7946 [place] [address]Dr. Bhavani Barragan EGFR-NON AF MICRONESIAN 49 mL/min/1.73m2 Critically low >=60 [facility] Comment on above: Performed By: #### C MP ####[facility] Qbbuibhqkr0198 [place] [address]Dr. Bhavani Barragan Globulin (S) [Mass/Vol] 3.8 g/dL Normal [facility] Comment on above: Performed By: #### C MP ####[facility] Usxwucylcp7375 [place] [phone]. Bhavani Laurel Glucose [Mass/Vol] 140 mg/dL Critically high 74-106 T [facility] Comment on above: Performed By: #### C MP ####[facility] Aejycoojol2107 [place] [address]Dr. Bhavani Laurel Potassium [Moles/Vol] 3.8 mmol/L Normal 3.5-5.1 [facility] Comment on above: Performed By: #### C MP ####[facility] Kaxalrhtrl3064 [place] [address]Dr. Bhavani Barragan Protein [Mass/Vol] 6.2 g/dL Critically low 6.4-8.2 Th [facility] Comment on above: Performed By: #### C MP ####[facility] Zlschvbfmx8170[address] [place], [place] [address]Dr. Bhavani Barragan Sodium [Moles/Vol] 132 mmol/L Critically low 136-145 Th [facility] Comment on above: Performed By: #### C MP ####[facility] Tnhntkxlmw096[address] [place], [place] [address]Dr. Bhavani Barragan Urea nitrogen [Mass/Vol] 15.0 mg/dL Normal 7.0-18.0 [facility] Comment on above: Performed By: #### C MP ####[facility] Ourjfalylh227344 [address] [place], [place] [address]Dr. Bhavani Barragan Urea nitrogen/Creatinine [Mass ratio] 14.0 mg/mg Normal [facility] Comment on above: Performed By: #### C MP ####[facility] Xwolwqxvia1710[address] [place], [place] [address]Dr. Bhavani Barragan PROTIMEon 03-27-2022 INR Coag (PPP) [Relative time] 1.37 {INR} Normal [facility] Comment on above: Performed By: #### P T, PTT ####[facility] Scyoaxqzuq3635[address] [place], [place] [address]Dr. Bhavani Barragan INR GUIDELINES SEE BELOW Normal The [facility] Comment on above: Result Comment: WALKER RED INR: 2.0 - 3.0 CONDITIONS NOT LISTED BELOW 2.5 - 3.5 FOR PROSTHETIC HEART VALVE REPLACEMENT 2.5 - 3.5 RECURRENT THROMBOSIS Performed By: #### P T, PTT ####[facility] Neqaytggdy525[address] [place], [place] [address]Dr. Bhavani Barragan PT Coag (PPP) [Time] 14.5 s Critically high 9.0-11.6 [facility] Comment on above: Performed By: #### P T, PTT ####[facility] Kslgqdpfgd8717 [place] [phone]. Bhavani Barragan PTTon 03-27-2022 aPTT Coag (Bld) [Time] 34.2 s Normal 22.3-36.2 [facility] Comment on above: Performed By: #### P T, PTT ####[facility] Wkayhltfsg459[address] [place], [place] [address]Dr. Bhavani Barragan XR ABD FLAT_UPon 03-27-2022 XR ABD FLAT_UP Normal The [facility] XR CHEST 1 Von 03-27-2022 XR CHEST 1 V Normal [facility] AMMONIAon 03-26-2022 Ammonia (P) [Moles/Vol] 26 umol/L Normal 11-32 [facility] Comment on above: Performed By: #### A MM ####[facility] Jyhpkuwbvk4617[address] [place], [place] [address]Dr. Bhavani Barragan CBC AUTO DIFFon 03-26-2022 BASO # 0.2 103/ul Critically high 0.0-0.1 [facility] Comment on above: Performed By: #### C BC ####[facility] Qrmgrfjutz0847[address] [place], [place] [address]Dr. Bhavani Laurel Basophils/100 WBC (Bld) 0.8 % Normal 0.2-2.0 [facility] Comment on above: Performed By: #### C BC ####[facility] Zokerefant005[address] [place], [place] [address]Dr. Bhavani Laurel EO # 0.0 103/ul Normal 0.0-0.7 [facility] Comment on above: Performed By: #### C BC ####[facility] Hahgoqizih114[address] [place], [place] [address]Dr. Bhavani Barragan Eosinophils/100 WBC (Bld) 0.1 % Critically low 0.9-7.0 [facility] Comment on above: Performed By: #### C BC ####[facility] Fceqxsxycw9888[address] [place], [place] [address]Dr. Bhavani Barragan Erythrocyte distribution width (RBC) [Ratio] 16.0 % Critically high 11.0-15.0 [facility] Comment on above: Performed By: #### C BC ####[facility] Jlajbfirdh3817 [place] [address]Dr. Bhavani Barragan Hematocrit (Bld) [Volume fraction] 43.9 % Normal 36.0-48.0 [facility] Comment on above: Performed By: #### C BC ####[facility] Gwtssheplk6420 [place] [address]Dr. Bhavani Laurel Hemoglobin (Bld) [Mass/Vol] 13.6 g/dL Normal 12.0-16.0 [facility] Comment on above: Performed By: #### C BC ####[facility] Nmjeorwwjc3434[address] [place], [place] [address]Dr. Bhavani Barragan IG # 0.78 10e3/ul Critically high 0.00-0.03 [facility] Comment on above: Performed By: #### C BC ####[facility] Vxoavxpafp5452 [place] [address]Dr. Bhavani Barragan IG % 3.5 % Critically high 0.0-0.5 [facility] Comment on above: Performed By: #### C BC ####[facility] Mjligoxcnx027[address] [place], [place] [address]DrLydia Barragan LYMPH # 0.9 103/ul Critically low 1.2-3.[address] [facility] Comment on above: Performed By: #### C BC ####[facility] Lvaisfcbhj674[address] [place], [place] [address]DrLydia Barragan Lymphocytes/100 WBC (Bld) 3.9 % Critically low 20.5-60.0 [facility] Comment on above: Performed By: #### C BC ####[facility] Ncfuovijec3347[address] [place], [place] [address]DrLydia Barragan MANUAL DIFF REQ NO Normal [facility] Comment on above: Performed By: #### C BC ####[facility] Ygxjhwjrhs8423[address] [place], [place] [address]Dr. Bhavani Barragan MCH (RBC) [Entitic mass] 30.0 pg Normal 26.7-34.0 [facility] Comment on above: Performed By: #### C BC ####[facility] Hqnpvrhsnn2955 [place] [phone]. Bhavani Barragan MCHC (RBC) [Mass/Vol] 31.0 g/dL Normal 29.9-35.2 [facility] Comment on above: Performed By: #### C BC ####[facility] Vpisxqeswg9808 [place] [phone] Barragan MCV (RBC) [Entitic vol] 96.9 fL Normal 81.0-99.0 [facility] Comment on above: Performed By: #### C BC ####[facility] Xxbrhdhyyu32[address] [place], [place] [address]DrLydia Barragan MONO # 0.6 103/ul Normal 0.3-0.8 [facility] Comment on above: Performed By: #### C BC ####[facility] Gewpmajxvc44[address] [place], [place] [address]Dr. Bhavani Barragan Monocytes/100 WBC (Bld) 2.7 % Normal 1.7-12.0 [facility] Comment on above: Performed By: #### C BC ####[facility] Atobmboavt13[address] [place], [place] [address]DrLydia Barragan NEUT # 20.1 103/ul Critically high 1.4-6.5 [facility] Comment on above: Performed By: #### C BC ####[facility] Wcfaryhxrl3820[address] [place], [place] [address]DrLydia Barragan Neutrophils/100 WBC (Bld) 89.0 % Critically high 43.0-75.0 [facility] Comment on above: Performed By: #### C BC ####[facility] Qwqljefzhg9250[address] [place], [place] [address]DrLydia Barragan Platelet mean volume (Bld) [Entitic vol] 9.7 fL Normal 9.5-13.5 [facility] Comment on above: Performed By: #### C BC ####[facility] Puqjhioqfb406[address] [place], [place] [address]Dr. Bhavani Barragan PLT 434 103/ul Normal 150-450 [facility] Comment on above: Performed By: #### C BC ####[facility] Qvgdycuoeo4833 [place] [address]Dr. Bhavani Barragan RBC 4.53 106/ul Normal 4.20-5.40 [facility] Comment on above: Performed By: #### C BC ####[facility] Pgqcahtise2272 [place] [phone]. Bhavani Barragan WBC 22.6 103/ul Critically high 4.0-11.0 [facility] Comment on above: Performed By: #### C BC ####[facility] Sotdsjtaws0608 [place] [phone]. Jayceeroxi Laurel ECHOCARDIO M/2D COMPLETEon 0 03-26-2022 ECHOCARDIO M/2D COMPLETE Normal [facility] POINT OF CARE GLUCOSEon - Glucose [Mass/Vol] 166 mg/dL Critically high 74-106 [facility] Comment on above: Performed By: #### P OCGLUC ####[facility] Khglxcroal7919 [place] [address]Dr. Jayceeroxi Barragan Glucose [Mass/Vol] 148 mg/dL Critically high 74-106 [facility] Comment on above: Performed By: #### P OCGLUC ####[facility] Jnnkxdswae9890 [place] [address]Dr. Bhavani Barragan PROF 14(COMP METB)on 022 Albumin [Mass/Vol] 2.4 g/dL Critically low 3.4-5.0 [facility] Comment on above: Performed By: #### C MP ####[facility] Yknnuoscao8332 [place] [phone]. Jayceeroxi Barragan Albumin/Globulin [Mass ratio] 0.6 {ratio} Normal [facility] Comment on above: Performed By: #### C MP ####[facility] Xbneplfwic2829 [place] [address]Dr. Bhavani Barragan ALP [Catalytic activity/Vol] 310 U/L Critically high 46-116 [facility] Comment on above: Performed By: #### C MP ####[facility] Qplelwtfaa0605 [place] [phone]. Bhavani Barragan ALT [Catalytic activity/Vol] 194 U/L Critically high 14-59 [facility] Comment on above: Performed By: #### C MP ####[facility] Vfvirvehaj9843 [place] [address]Dr. Bhvaani Barragan Anion gap [Moles/Vol] 8.2 mmol/L Normal [facility] Comment on above: Performed By: #### C MP ####[facility] Ccwldypiom7804 [place] [phone]. Bhavani Barragan AST [Catalytic activity/Vol] 133 U/L Critically high 15-37 [facility] Comment on above: Performed By: #### C MP ####[facility] Vijwrbcmvl0883 [place] [address]Dr. Bhavani Barragan Bilirubin [Mass/Vol] 2.8 mg/dL Critically high 0.2-1.0 [facility] Comment on above: Performed By: #### C MP ####[facility] Mhvltrdqla1079 [place] [address]Dr. Bhavani Barragan Calcium [Mass/Vol] 7.7 mg/dL Critically low 8.5-10.1 Th [facility] Comment on above: Performed By: #### C MP ####[facility] Okkumqqrum4588 [place] [address]Dr. Bhavani Barragan Chloride [Moles/Vol] 105 mmol/L Normal 98-107 [facility] Comment on above: Performed By: #### C MP ####[facility] Rddayknxac5910 [place] [address]Dr. Bhavani Barragan CO2 [Moles/Vol] 25.8 mmol/L Normal 21.0-32.0 [facility] Comment on above: Performed By: #### C MP ####[facility] Zkjnhpsmci9674 [place] [phone]. Bhavani Barragan Creatinine [Mass/Vol] 1.07 mg/dL Critically high 0.55-1.02 [facility] Comment on above: Performed By: #### C MP ####[facility] Rbqrootofn9827 [place] [phone]. Bhavani Barragan EGFR-AF MICRONESIAN 60 mL/min/1.73m2 Normal >=60 Th [facility] Comment on above: Performed By: #### C MP ####[facility] Jrdmrlpigd0457 [place] [phone]. Bhavani Barragan EGFR-NON AF MICRONESIAN 49 mL/min/1.73m2 Critically low >=60 [facility] Comment on above: Performed By: #### C MP ####[facility] Niqzriavth6500 [place] [phone]. Bhavani Barragan Globulin (S) [Mass/Vol] 3.8 g/dL Normal [facility] Comment on above: Performed By: #### C MP ####[facility] Cyucflcknx2829 [place] [phone]. Bhavani Barragan Glucose [Mass/Vol] 90 mg/dL Normal 74-106 [facility] Comment on above: Performed By: #### C MP ####[facility] Pewlfsptpr5540 [place] [phone]. Bhavani Barragan Potassium [Moles/Vol] 4.0 mmol/L Normal 3.5-5.1 [facility] Comment on above: Performed By: #### C MP ####[facility] Lwxqcrunht3051 [place] [phone]. Bhavani Barragan Protein [Mass/Vol] 6.2 g/dL Critically low 6.4-8.2 [facility] Comment on above: Performed By: #### C MP ####[facility] Bepodwiudn1646 [place] [phone]. Bhavani Barragan Sodium [Moles/Vol] 135 mmol/L Critically low 136-145 Th [facility] Comment on above: Performed By: #### C MP ####[facility] Ksyvuurwed9608 [place] [place] [id number]. Bhavani Barragan Urea nitrogen [Mass/Vol] 14.0 mg/dL Normal 7.0-18.0 [facility] Comment on above: Performed By: #### C MP ####[facility] Jngxsmhxsc50[address] [place] [address]Dr. Bhavani Barragan Urea nitrogen/Creatinine [Mass ratio] 13.1 mg/mg Normal [facility] Comment on above: Performed By: #### C MP ####[facility] Hbesacliyv5554 [place] [address]Dr. Bhavani Barragan PROTIMEon 03-26-2022 INR Coag (PPP) [Relative time] 1.31 {INR} Normal The [facility] Comment on above: Performed By: #### P T, PTT ####[facility] Dskzoaogtl[address] [place], [place] [address]Dr. Bhavani Barragan INR GUIDELINES SEE BELOW Normal The [facility] Comment on above: Result Comment: WALKER RED INR: 2.0 - 3.0 CONDITIONS NOT LISTED BELOW 2.5 - 3.5 FOR PROSTHETIC HEART VALVE REPLACEMENT 2.5 - 3.5 RECURRENT THROMBOSIS Performed By: #### P T, PTT ####[facility] Zqcnzsutdr[address] [place], [place] [address]Dr. Bhavani Barragan PT Coag (PPP) [Time] 13.9 s Critically high 9.0-11.6 The [facility] Comment on above: Performed By: #### P T, PTT ####[facility] Alwoduqmlb[address] [place], [place] [address]Dr. Bhavani Barragan PTTon 03-26-2022 aPTT Coag (Bld) [Time] 32.8 s Normal 22.3-36.2 The [facility] Comment on above: Performed By: #### P T, PTT ####[facility] Qrxbatdkwf324[address] [place], [place] [address]Dr. Bhavani Barragan AMMONIAon 03-25-2022 Ammonia (P) [Moles/Vol] 17 umol/L Normal 11-32 The [facility] Comment on above: Performed By: #### A MM ####[facility] Fvdfavfyzk5115 [place] [address]Dr. Bhavani Barragan CBC W MANUAL DIFFon 03-25-20 22 ATYPICAL LYMPH # Normal The [facility] Comment on above: Performed By: #### C BCMAN ####[facility] Vctjehcpdn5344 [place] [address]Dr. Bhavani Barragan ATYPICAL LYMPH % Normal The [facility] Comment on above: Performed By: #### C BCJERSON ####[facility] Necrmwccmw6805 [place] [address]Dr. Yilan Barragan BAND # 0.3 103/ul Normal 0.0-0.3 The [facility] Comment on above: Performed By: #### C BCJERSON ####[facility] Ieiugwraol2961 [place] [address]Dr. Yilan Barragan BAND % 1 % Normal 0-5 The [facility] Comment on above: Performed By: #### C OMID ####[facility] Ntwrlgqnew3[address] [place], [place] [address]Dr. Bhavani Barragan BASOM # 0.27 103/ul Critically high 0.00-0.10 [facility] Comment on above: Performed By: #### C OMID ####[facility] Nxedvvanlt[address] [place], [place] [address]Dr. Yiroxi Barragan BASOM % 1.0 % Normal 0.2-2.0 The [facility] Comment on above: Performed By: #### C OMID ####[facility] Ecjycneyse[address] [place], [place] [address]Dr. Yiroxi Barragan BLAST # Normal The [facility] Comment on above: Performed By: #### C OMID ####[facility] Wnsdsilwts9[address] [place], [place] [address]Dr. Bhavani Barragan BLAST % Normal The [facility] Comment on above: Performed By: #### C OMID ####[facility] Mabwjiginu4508 [place] [address]Dr. Bhavani Barragan CORRECTED WBC Normal 4.0-11.0 The [facility] Comment on above: Performed By: #### C OMID ####[facility] Sqfhnkretl0953 [place] [address]Dr. Jayceelan Barragan EOS # 0.00 103/ul Normal 0.00-0.70 The [facility] Comment on above: Performed By: #### C OMID ####[facility] Ulkjlfwrkb0352 [place], [place] [address]Px. Bhavani Barragan EOS% 0.0 % Critically low 0.9-7.[address] [facility] Comment on above: Performed By: #### Jany ANNE ####[facility] Adwklknevm1937 [place], [place] [address]Ot. Bhavani Barragan HCT 41.6 % Normal 36.0-48.0 The [facility] Comment on above: Performed By: #### Jany ANNE ####[facility] Asxjwwilil5155 [place], [place] [address]Er. Bhavani Barragan HGB 12.8 g/dl Normal 12.0-16.0 The [facility] Comment on above: Performed By: #### aJny ANNE ####[facility] Heizmdsyau8439 [place] [id number]. Bhavani Barragan LYMPHM # 0.80 103/ul Critically low 1.20-3.80 The [facility] Comment on above: Performed By: #### Jany ANNE ####[facility] Movszxmnfa2939 [place] [id number]. Bhavani Barragan LYMPHM% 3.0 % Critically low 20.5-60.[address] [facility] Comment on above: Performed By: #### Jany ANNE ####[facility] Gkkbcilxqm8145 [place] [id number]. Bhavani Barragan MCH 29.4 pg Normal 26.7-34.0 The [facility] Comment on above: Performed By: #### Jany ANNE ####[facility] Cqswdgknqz6953 [place], [place] [address]Nh. Bhavani Barragan MCHC 30.8 g/dl Normal 29.9-35.2 The [facility] Comment on above: Performed By: #### Jany ANNE ####[facility] Xxamtxkqfi9845 [place] [id number]. Bhavani Barragan MCV 95.6 fL Normal 81.0-99.0 The [facility] Comment on above: Performed By: #### Jany ANNE ####[facility] Tuvebtixtz6020 [place] [id number]. Bhavani Barragan METAMYELOCYTE # Normal The [facility] Comment on above: Performed By: #### C OMID ####[facility] Uvorlviyly2624 [place], [place] [address]Xu. Bhavani Barragan METAMYELOCYTE % Normal The [facility] Comment on above: Performed By: #### C OMID ####[facility] Kjulhmnjyj7203 [place], [place] [address]Zk. Bhavani Barragan MONOM# 0.80 103/ul Normal 0.30-0.80 [facility] Comment on above: Performed By: #### C OMID ####[facility] Uzcezjaryw8603 [place], [place] [address]Dw. Bhavani Barragan MONOM% 3.0 % Normal 1.7-12.0 [facility] Comment on above: Performed By: #### C OMID ####[facility] Zifytfwtvt7756 [place] [phone]. Bhavani Barragan MPV 9.9 fL Normal 9.5-13.5 [facility] Comment on above: Performed By: #### C OMID ####[facility] Tqdbwwuksq8698 [place], [place] [address]Ts. Bhavani Barragan MYELOCYTE # Normal The [facility] Comment on above: Performed By: #### C OMID ####[facility] Fhujodsiyq4122 [place], [place] [address]Hs. Bhavani Barragan MYELOCYTE % Normal The [facility] Comment on above: Performed By: #### C OMID ####[facility] Wyebyycsdi3062 [place], [place] [address]Hh. Bhavani Barragan NRBC Normal The [facility] Comment on above: Performed By: #### C OMID ####[facility] Hbiiovodgh7266 [place] [phone]. Bhavani Barragan PLT 448 103/ul Normal 150-450 The [facility] Comment on above: Performed By: #### C OMID ####[facility] Mvwaaxxqso6065 [place], [place] [address]Bq. Bhavani Laurel RBC 4.35 106/ul Normal 4.20-5.40 The [facility] Comment on above: Performed By: #### C BCMAN ####[facility] Ofwquvppti1832 [place], [place] [address]Jw. Bhavani Barragan RDW 16.0 % Critically high 11.0-15.0 The [facility] Comment on above: Performed By: #### C BCMAN ####[facility] Utyxxobjxe4694 [place], [place] [address]Fl. Bhavani Barragan SEG # 24.38 103/ul Critically high 1.40-6.50 [facility] Comment on above: Performed By: #### C BCMAN ####[facility] Amhxmlzgna1647 [place] [phone]. Bhavani Barragan SEG % 92.0 % Critically high 43.0-75.0 The [facility] Comment on above: Performed By: #### C OMID ####[facility] Yioqtsdhae4071 [place] [phone]. Bhavani Barragan WBC 26.5 103/ul Critically high 4.0-11.0 [facility] Comment on above: Performed By: #### C BCMAN ####[facility] Fdrtciphcl8409 [place] [phone]. Bhavani Barragan DIFFERENTIAL MANUALon 2021 ATYPICAL LYMPH # Normal The [facility] Comment on above: Performed By: #### D IFF ####[facility] Abmasnhwyi5755 [place] [phone]. Bhavani Barragan ATYPICAL LYMPH % Normal [facility] Comment on above: Performed By: #### D IFF ####[facility] Itigwoobxr6776 [place] [phone]. Bhavani Barragan BAND # 0.3 103/ul Normal 0.0-0.3 The [facility] Comment on above: Performed By: #### D IFF ####[facility] Dgzfajlrgv1965 [place] [phone]. Bhavani Barragan BAND % 1 % Normal 0-5 The [facility] Comment on above: Performed By: #### D IFF ####[facility] Kbhqhwnbsy9044 [place] [address]Dr. Bhavani Barragan BASOM # 0.27 103/ul Critically high 0.00-0.10 [facility] Comment on above: Performed By: #### D IFF ####[facility] Pkchmmwelh7659 [place] [address]Dr. Bhavani Barragan BASOM % 1.0 % Normal 0.2-2.0 The [facility] Comment on above: Performed By: #### D IFF ####[facility] Daptwuswic6354 [place] [address]Dr. Bhavani Barragan BLAST # Normal The [facility] Comment on above: Performed By: #### D IFF ####[facility] Hhaomvzzuu207[address] [place], [place] [address]Dr. Bhavani Barragan BLAST % Normal The [facility] Comment on above: Performed By: #### D IFF ####[facility] Umbxylszrd55[address] [place], [place] [address]Dr. Bhavani Barragan CORRECTED WBC Normal 4.0-11.0 The [facility] Comment on above: Performed By: #### D IFF ####[facility] R[address]irfqhsb7[address] [place], [place] [address]Dr. Bhavani Barragan EOS # 0.00 103/ul Normal 0.00-0.70 The [facility] Comment on above: Performed By: #### D IFF ####[facility] Iaefsxotmi098[address] [place], [place] [address]Dr. Bhavani Barragan EOS% 0.0 % Critically low 0.9-7.[address] [facility] Comment on above: Performed By: #### D IFF ####[facility] Alelwxxukn887[address] [place], [place] [address]Dr. Bhavani Barragan LYMPHM # 0.80 103/ul Critically low 1.20-3.80 The [facility] Comment on above: Performed By: #### D IFF ####[facility] Nzfykyxieb9632[address] [place], [place] [address]Dr. Bhavani Barragan LYMPHM% 3.0 % Critically low 20.5-60.[address] [facility] Comment on above: Performed By: #### D IFF ####[facility] Njpryflfjr5156 [place] [phone]. Bhavani Barragan METAMYELOCYTE # Normal [facility] Comment on above: Performed By: #### D IFF ####[facility] Zftmvgttes9662 [place] [phone]. Yiroxi Barragan METAMYELOCYTE % Normal The [facility] Comment on above: Performed By: #### D IFF ####[facility] Eyvpepsmop8928 [place] [phone]. Bhavani Barragan MONOM# 0.80 103/ul Normal 0.30-0.80 [facility] Comment on above: Performed By: #### D IFF ####[facility] Vhscmshbnm60[address] [place], [place] [address]Dr. Bhavani Barragan MONOM% 3.0 % Normal 1.7-12.0 [facility] Comment on above: Performed By: #### D IFF ####[facility] Ohbubdldtv8[address] [place], [place] [address]Dr. Bhavani Barragan MYELOCYTE # Normal [facility] Comment on above: Performed By: #### D IFF ####[facility] Wkpztvztho70[address] [place], [place] [address]Dr. Yiroxi Barragan MYELOCYTE % Normal The [facility] Comment on above: Performed By: #### D IFF ####[facility] Zolrgswwok[address] [place], [place] [address]Dr. Bhavani Barragan NRBC Normal The [facility] Comment on above: Performed By: #### D IFF ####[facility] Bbzzvnzxdt8969 [place] [phone]. Bhavani Barragan SEG # 24.38 103/ul Critically high 1.40-6.50 [facility] Comment on above: Performed By: #### D IFF ####[facility] Rbyghdadtr8[address] [place], [place] [address]Dr. Bhavani Barragan SEG % 92.0 % Critically high 43.0-75.0 [facility] Comment on above: Performed By: #### D IFF ####[facility] Zxaaluzfuu8824 [place] [phone]. Bhavani Barragan WBC 26.5 103/ul Critically high 4.0-11.0 [facility] Comment on above: Performed By: #### D IFF ####[facility] Ucxyzyqbmw4908 [place] [address]Dr. Bhavani Barragan POINT OF CARE GLUCOSEon 05-0 Glucose [Mass/Vol] 120 mg/dL Critically high 74-106 T [facility] Comment on above: Performed By: #### P OCGLUC ####[facility] Pwuklbsdiz4998 [place] [address]Dr. Bhavani Barragan Glucose [Mass/Vol] 98 mg/dL Normal 74-106 [facility] Comment on above: Performed By: #### P OCGLUC ####[facility] Veeeslmhrp7359 [place] [address]Dr. Bhavani Barragan PROF 14(COMP METB)on 022 Albumin [Mass/Vol] 2.3 g/dL Critically low 3.4-5.0 [facility] Comment on above: Performed By: #### C MP ####[facility] Ladhmhjxuv6405 [place] [address]Dr. Bhavani Barragan Albumin/Globulin [Mass ratio] 0.6 {ratio} Normal [facility] Comment on above: Performed By: #### C MP ####[facility] Ramfedvpuj3402 [place] [address]Dr. Bhavani Barragan ALP [Catalytic activity/Vol] 309 U/L Critically high 46-116 [facility] Comment on above: Performed By: #### C MP ####[facility] Kkjwdvsxst3732 [place] [address]Dr. Bhavani Barragan ALT [Catalytic activity/Vol] 163 U/L Critically high 14-59 [facility] Comment on above: Performed By: #### C MP ####[facility] Srmonqbmqg6676 [place] [address]Dr. Bhavani Barragan Anion gap [Moles/Vol] 12.2 mmol/L Normal [facility] Comment on above: Performed By: #### C MP ####[facility] Ishuiwfick1398 [place] [phone]. Bhavani Barragan AST [Catalytic activity/Vol] 103 U/L Critically high 15-37 The [facility] Comment on above: Performed By: #### C MP ####[facility] Fsctcppzde7291 [place] [phone]. Bhavani Barragan Bilirubin [Mass/Vol] 1.5 mg/dL Critically high 0.2-1.0 [facility] Comment on above: Performed By: #### C MP ####[facility] Lrqdopxvcf1879 [place] [address]Dr. Bhavani Barragan Calcium [Mass/Vol] 7.3 mg/dL Critically low 8.5-10.1 Th e [facility] Comment on above: Performed By: #### C MP ####[facility] Lphxtobcts[address] [place], [place] [address]Dr. Bhavani Barragan Chloride [Moles/Vol] 107 mmol/L Normal 98-107 The [facility] Comment on above: Performed By: #### C MP ####[facility] Zrqiyeodlj6[address] [place], [place] [address]Dr. Bhavani Barragan CO2 [Moles/Vol] 21.9 mmol/L Normal 21.0-32.0 [facility] Comment on above: Performed By: #### C MP ####[facility] Gfdgekizzo88[address] [place], [place] [address]Dr. Bhavani Barragan Creatinine [Mass/Vol] 1.22 mg/dL Critically high 0.55-1.02 [facility] Comment on above: Performed By: #### C MP ####[facility] Xtrdnkqtlp8685 [place] [phone]. Bhavani Laurel EGFR-AF MICRONESIAN 51 mL/min/1.73m2 Critically low >=60 The [facility] Comment on above: Performed By: #### C MP ####[facility] Jwgoedxkds3952 [place] [address]Dr. Jayceeroxi Laurel EGFR-NON AF MICRONESIAN 42 mL/min/1.73m2 Critically low >=60 The [facility] Comment on above: Performed By: #### C MP ####[facility] Gxekvfnooq4614 [place] [address]Dr. Bhavani Barragan Globulin (S) [Mass/Vol] 3.7 g/dL Normal [facility] Comment on above: Performed By: #### C MP ####[facility] Fvbijasmyw3993 [place] [address]Dr. Bhavani Barragan Glucose [Mass/Vol] 165 mg/dL Critically high 74-106 [facility] Comment on above: Performed By: #### C MP ####[facility] Obioafhmqj1561 [place] [address]Dr. Bhavani Barragan Potassium [Moles/Vol] 4.1 mmol/L Normal 3.5-5.1 [facility] Comment on above: Performed By: #### C MP ####[facility] Hgoyqwpfah0769 [place] [address]Dr. Bhavani Barragan Protein [Mass/Vol] 6.0 g/dL Critically low 6.4-8.2 Th [facility] Comment on above: Performed By: #### C MP ####[facility] Bprbnpilfr9733 [place] [address]Dr. Bhavani Barragan Sodium [Moles/Vol] 137 mmol/L Normal 136-145 [facility] Comment on above: Performed By: #### C MP ####[facility] Qglnvvbypz2817 [place] [address]Dr. Bhavani Barragan Urea nitrogen [Mass/Vol] 18.0 mg/dL Normal 7.0-18.0 [facility] Comment on above: Performed By: #### C MP ####[facility] Tdiqqkqgou411[address] [place], [place] [address]Dr. Bhavani Barragan Urea nitrogen/Creatinine [Mass ratio] 14.8 mg/mg Normal [facility] Comment on above: Performed By: #### C MP ####[facility] Qfioqkrqau3853 [place] [address]Dr. Bhavani Laurel PROTIMEon 03-25-2022 INR Coag (PPP) [Relative time] 1.18 {INR} Normal The [facility] Comment on above: Performed By: #### P TT, PT ####[facility] Omotxzqzdy5299 [place] [address]Dr. Bhavani Barragan INR GUIDELINES SEE BELOW Normal The [facility] Comment on above: Result Comment: WALKER RED INR: 2.0 - 3.0 CONDITIONS NOT LISTED BELOW 2.5 - 3.5 FOR PROSTHETIC HEART VALVE REPLACEMENT 2.5 - 3.5 RECURRENT THROMBOSIS Performed By: #### P TT, PT ####[facility] Xdadjapgrv8363 [place] [address]Dr. Bhavani Barragan PT Coag (PPP) [Time] 12.6 s Critically high 9.0-11.6 The [facility] Comment on above: Performed By: #### P TT, PT ####[facility] Rpifhcmgwq2900 [place] [address]Dr. Jayceeroxi Barragan PTTon 03-25-2022 aPTT Coag (Bld) [Time] 30.6 s Normal 22.3-36.2 The [facility] Comment on above: Performed By: #### P TT, PT ####[facility] Vysdssmccr5309 [place] [address]Dr. roxi Barragan AMMONIAon 03-24-2022 Ammonia (P) [Moles/Vol] 38 umol/L Critically high 11-32 The [facility] Comment on above: Performed By: #### A MM ####[facility] Xokeumtnpn60[address] [place], [place] [address]Dr. roxi Barragan BNPon 03-24-2022 Natriuretic peptide B (Bld) [Mass/Vol] 2420.0 pg/mL Critically high <=1,800.0 The [facility] Comment on above: Result Comment: repe ated Performed By: #### B LUNCH COOK, CMP ####[facility] Ibkiurytjt7[address] [place], [place] [address]Dr. Bhavani Barragan CARDIAC ANDREA 3-6on 2 CK [Catalytic activity/Vol] 20 U/L Critically low 26-192 The [facility] Comment on above: Performed By: #### C MREP ####[facility] Hpxrysqlvr1284 [place] [phone]. Bhavani Barragan CK.MB [Mass/Vol] ng/mL Normal <=3.60 [facility] Comment on above: Performed By: #### C MREP ####[facility] Qdvtwidfpa8469 [place] [phone]. Bhavani Barragan HSTROP 42.4 pg/mL Normal 4.0-51.3 The [facility] Comment on above: Result Comment: CUT- OFF POINTS HAVE BEEN ESTABLISHED BASED ON THE FOURTH UNIVERSAL DEFINITIONS OF MYOCARDIALINFARCTION. THE UPPER REFERENCE LIMIT (URL) OF TROPONIN, DEFINED THE 99TH PERCENTILE OFcTnI DISTRIBUTION IN A REFERENCE POPULATION, HAS BEEN CONFIRMED THE DECISION THRESHOLDFOR HI DIAGNOSIS. Performed By: #### C MREP ####[facility] Pgfnjgtdej0259 [place] [address]Dr. Bhavani Barragan CK [Catalytic activity/Vol] 17 U/L Critically low 26-192 The [facility] Comment on above: Performed By: #### C MREP ####[facility] Ccmrbguxih7912 [place] [phone]. Bhavani Barragan CK.MB [Mass/Vol] 0.51 ng/mL Normal <=3.60 [facility] Comment on above: Performed By: #### C MREP ####[facility] Vnnsbpbrun6740 [place] [address]Dr. Bhavani Barragan HSTROP 45.4 pg/mL Normal 4.0-51.3 The [facility] Comment on above: Result Comment: CUT- OFF POINTS HAVE BEEN ESTABLISHED BASED ON THE [facility] UNIVERSAL DEFINITIONS OF MYOCARDIALINFARCTION. THE UPPER REFERENCE LIMIT (URL) OF TROPONIN, DEFINED THE 99TH PERCENTILE OFcTnI DISTRIBUTION IN A REFERENCE POPULATION, HAS BEEN CONFIRMED THE DECISION THRESHOLDFOR HI DIAGNOSIS. Performed By: #### C MREP ####[facility] Jbbitoyfhf6437 [place] [address]Dr. Bhavani Barragan CBC W MANUAL DIFFon 03-24-20 22 ANISOCYTOSIS 1+ Normal The [facility] Comment on above: Performed By: #### C BCMAN ####[facility] Jwfdchayxp4797 [place] [phone]. Bhavani Barragan ATYPICAL LYMPH # Normal [facility] Comment on above: Performed By: #### C BCMAN ####[facility] Airycyprbh1428 [place] [address]Dr. Bhavani Barragan ATYPICAL LYMPH % Normal [facility] Comment on above: Performed By: #### C BCMAN ####[facility] Ujzhfahvzw3614 [place] [phone]. Bhavani Barragan BAND # 0.8 103/ul Critically high 0.0-0.3 [facility] Comment on above: Performed By: #### C BCMAN ####[facility] Tousynvfwm9934 [place] [address]Dr. Bhavani Barragan BAND % 3 % Normal 0-5 The [facility] Comment on above: Performed By: #### C OMID ####[facility] Jmtauxzaeo064[address] [place], [place] [address]Dr. Bhavani Barragan BASOM # 0.00 103/ul Normal 0.00-0.10 The [facility] Comment on above: Performed By: #### C BCJERSON ####[facility] Vttcpmkfgr2879 [place] [address]Dr. Bhavani Barragan BASOM % 0.0 % Critically low 0.2-2.[address] [facility] Comment on above: Performed By: #### C OMID ####[facility] Kbbggauebv6722 [place] [address]Dr. Bhavani Barragan BLAST # Normal [facility] Comment on above: Performed By: #### C BCJERSON ####[facility] Oqwqlmcbwc9661 [place] [address]Dr. Bhavani Barragan BLAST % Normal [facility] Comment on above: Performed By: #### C OMID ####[facility] Ukypoggdir994[address] [place], [place] [address]Dr. Bhavani Barragan CORRECTED WBC Normal 4.0-11.0 The [facility] Comment on above: Performed By: #### C OMID ####[facility] Dypaoxpgxh57[address] [place], [place] [address]DrLydia Barragan EOS # 0.00 103/ul Normal 0.00-0.70 [facility] Comment on above: Performed By: #### C OMID ####[facility] Ecrigvwgbe2068 [place], [place] [address]UxLydia Barragan EOS% 0.0 % Critically low 0.9-7.[address] [facility] Comment on above: Performed By: #### C OMID ####[facility] Zbkcfnklxb2615 [place], [place] [address]Vb. Bhavani Barragan HCT 44.0 % Normal 36.0-48.0 The [facility] Comment on above: Performed By: #### C OMID ####[facility] Ezivxpgazy7375 [place] [phone]. Bhavani Barragan HGB 13.3 g/dl Normal 12.0-16.0 The [facility] Comment on above: Performed By: #### C OMID ####[facility] Iaskpcudzn3224 [place] [phone]. Bhavani Barragan LYMPHM # 1.08 103/ul Critically low 1.20-3.80 [facility] Comment on above: Performed By: #### C OMID ####[facility] Xdmxdviycy7137 [place] [phone]. Bhavani Barragan LYMPHM% 4.0 % Critically low 20.5-60.[address] [facility] Comment on above: Performed By: #### C OMID ####[facility] Saroaauadg1211 [place] [phone]. Bhavani Barragan MCH 29.6 pg Normal 26.7-34.0 The [facility] Comment on above: Performed By: #### C OMID ####[facility] Bojlymleye8254 [place] [phone]. Bhavani Barragan MCHC 30.2 g/dl Normal 29.9-35.2 The [facility] Comment on above: Performed By: #### C OMID ####[facility] [facility] [address] [place] [id number] Barragan MCV 97.8 fL Normal 81.0-99.0 [facility] Comment on above: Performed By: #### C OMID ####[facility] Whlsmgsyvi86[address] [place] [id number]. Bhavani Barragan METAMYELOCYTE # Normal [facility] Comment on above: Performed By: #### C OMID ####[facility] Kqvghxeqbr7724 [place] [id number]. Bhavani Barragan METAMYELOCYTE % Normal [facility] Comment on above: Performed By: #### C OMID ####[facility] Ufxiyqatzo6816 [place] [id number]. Bhavani Barragan MONOM# 0.54 103/ul Normal 0.30-0.80 [facility] Comment on above: Performed By: #### C OMID ####[facility] [address]zwlw[address] [place], [place] [address]Dr. Bhavani Barragan MONOM% 2.0 % Normal 1.7-12.0 [facility] Comment on above: Performed By: #### C OMID ####[facility] Ecysbtemdk[address] [place], [place] [address]Dr. Bhavani Barragan MPV 10.3 fL Normal 9.5-13.5 [facility] Comment on above: Performed By: #### C OMID ####[facility] Ygoyjfkeoy[address] [place], [place] [address]Dr. Bhavani Barragan MYELOCYTE # Normal [facility] Comment on above: Performed By: #### C OMID ####[facility] Nkddzdsivx[address] [place], [place] [id number]. Bhavani Barragan MYELOCYTE % Normal [facility] Comment on above: Performed By: #### C OMID ####[facility] Dfqemmdcha[address] [place], [place] [address]Dr. Bhavani Barragan NRBC Normal [facility] Comment on above: Performed By: #### C OMID ####[facility] Rqxjimxufa[address] [place] [id number]. Bhavani Barragan PLT 424 103/ul Normal 150-450 [facility] Comment on above: Performed By: #### C OMID ####[facility] Doeuapcfag32[address] [place], [place] [address]Ok. Bhavani Barragan RBC 4.50 106/ul Normal 4.20-5.40 [facility] Comment on above: Performed By: #### C OMID ####[facility] Anvvxzeypb2493 [place], [place] [address]Sn. Bhavani Barragan RDW 15.9 % Critically high 11.0-15.0 [facility] Comment on above: Performed By: #### C OMID ####[facility] Vcnwhkplzo0527 [place], [place] [address]Nq. Bhavani Barragan SEG # 24.48 103/ul Critically high 1.40-6.50 [facility] Comment on above: Performed By: #### C OMID ####[facility] Bhjkeafhio7520 [place], [place] [address]Hp. Bhavani Barragan SEG % 91.0 % Critically high 43.0-75.0 [facility] Comment on above: Performed By: #### C OMID ####[facility] Ftzagturek3883 [place], [place] [address]Ta. Bhavani Barragan WBC 26.9 103/ul Critically high 4.0-11.0 [facility] Comment on above: Performed By: #### C OMID ####[facility] Smhgkghqlg7685 [place], [place] [address]Jb. Bhavani Barragan CULTURE URINEon 03-24-2022 CULTURE URINE Normal [facility] Comment on above: Performed By: #### U RCX ####[facility] Zkbtisvrdp1501 [place], [place] [address]Fh. Bhavani Barragan POINT OF CARE GLUCOSEon 05-0 Glucose [Mass/Vol] 113 mg/dL Critically high 74-106 [facility] Comment on above: Performed By: #### P OCGLUC ####[facility] Qhkkauedjs8473 [place], [place] [address]Qr. Bhavani Barragan Glucose [Mass/Vol] 103 mg/dL Normal 74-106 [facility] Comment on above: Performed By: #### P OCGLUC ####[facility] Qsdksokeko7125 [place] [id number]. Bhavani Barragan Glucose [Mass/Vol] 134 mg/dL Critically high 74-106 T [facility] Comment on above: Performed By: #### P OCGLUC ####[facility] Odblbftzyk[address] [place] [address]Dr. Bhavani Barragan PROF 14(COMP METB)on 022 Albumin [Mass/Vol] 2.3 g/dL Critically low 3.4-5.0 [facility] Comment on above: Performed By: #### B LUNCH COOK, CMP ####[facility] Mdxrexwuhp[address] [place] [address]Dr. Bhavani Barragan Albumin/Globulin [Mass ratio] 0.6 {ratio} Normal [facility] Comment on above: Performed By: #### B LUNCH COOK, CMP ####[facility] Wkdnzevjcy[address] [place], [place] [address]Dr. Bhavani Barragan ALP [Catalytic activity/Vol] 239 U/L Critically high 46-116 [facility] Comment on above: Performed By: #### B LUNCH COOK, CMP ####[facility] Xjbelhcpkd67[address] [place] [address]Dr. Bhavani Barragan ALT [Catalytic activity/Vol] 185 U/L Critically high 14-59 [facility] Comment on above: Performed By: #### B LUNCH COOK, CMP ####[facility] Mjwdmujzka1062 [place] [address]Dr. Bhavani Barragan Anion gap [Moles/Vol] 13.8 mmol/L Normal [facility] Comment on above: Performed By: #### B LUNCH COOK, CMP ####[facility] Ddcidgbadt7475 [place] [address]Dr. Bhavani Barragan AST [Catalytic activity/Vol] 64 U/L Critically high 15-37 [facility] Comment on above: Performed By: #### B LUNCH COOK, CMP ####[facility] Aqbuslctvs9771 [place] [address]Dr. Bhavani Barragan Bilirubin [Mass/Vol] 0.6 mg/dL Normal 0.2-1.0 [facility] Comment on above: Performed By: #### B LUNCH COOK, CMP ####[facility] Jjhzpficgl7101 [place] [address]Dr. Bhavani Barragan Calcium [Mass/Vol] 7.3 mg/dL Critically low 8.5-10.1 [facility] Comment on above: Performed By: #### B LUNCH COOK, CMP ####[facility] Bhviwtdnft220[address] [place], [place] [address]Dr. Bhavani Barragan Chloride [Moles/Vol] 105 mmol/L Normal 98-107 [facility] Comment on above: Performed By: #### B LUNCH COOK, CMP ####[facility] Ootfxbswar116[address] [place], [place] [address]Dr. Bhavani Barragan CO2 [Moles/Vol] 20.9 mmol/L Critically low 21.0-32.0 [facility] Comment on above: Performed By: #### B LUNCH COOK, CMP ####[facility] Pbazmyzwci623[address] [place], [place] [address]Dr. Bhavani Barragan Creatinine [Mass/Vol] 1.24 mg/dL Critically high 0.55-1.02 [facility] Comment on above: Performed By: #### B LUNCH COOK, CMP ####[facility] Wlatctweal7[address] [place], [place] [address]Dr. Bhavani Barragan EGFR-AF MICRONESIAN 50 mL/min/1.73m2 Critically low >=60 [facility] Comment on above: Performed By: #### B LUNCH COOK, CMP ####[facility] Vllnifguzs358[address] [place], [place] [address]Dr. Bhavani Barragan EGFR-NON AF MICRONESIAN 41 mL/min/1.73m2 Critically low >=60 [facility] Comment on above: Performed By: #### B LUNCH COOK, CMP ####[facility] Wnsvutrufb9077[address] [place], [place] [address]Dr. Bhavani Barragan Globulin (S) [Mass/Vol] 3.8 g/dL Normal [facility] Comment on above: Performed By: #### B LUNCH COOK, CMP ####[facility] Lsvbbvcdgc3147[address] [place], [place] [address]Dr. Bhavani Laurel Glucose [Mass/Vol] 164 mg/dL Critically high 74-106 T [facility] Comment on above: Performed By: #### B LUNCH COOK, CMP ####[facility] Xvymrwaeha6[address] [place], [place] [address]Dr. Bhavani Barragan Potassium [Moles/Vol] 3.7 mmol/L Normal 3.5-5.1 [facility] Comment on above: Performed By: #### B LUNCH COOK, CMP ####[facility] Pvdgyspwjj429[address] [place], [place] [address]Dr. Bhavani Barragan Protein [Mass/Vol] 6.1 g/dL Critically low 6.4-8.2 Th [facility] Comment on above: Performed By: #### B LUNCH COOK, CMP ####[facility] Waztcruqqk8314[address] [place], [place] [address]Dr. Bhavani Barragan Sodium [Moles/Vol] 136 mmol/L Normal 136-145 [facility] Comment on above: Performed By: #### B LUNCH COOK, CMP ####[facility] Duhwsbznpt170[address] [place], [place] [address]Dr. Bhavani Barragan Urea nitrogen [Mass/Vol] 23.0 mg/dL Critically high 7.0-18.0 [facility] Comment on above: Performed By: #### B LUNCH COOK, CMP ####[facility] Yttlwxzwih05[address] [place], [place] [address]Dr. Bhavani Barragan Urea nitrogen/Creatinine [Mass ratio] 18.5 mg/mg Normal [facility] Comment on above: Performed By: #### B LUNCH COOK, CMP ####[facility] Tvqzkbctbs16[address] [place], [place] [address]Dr. Bhavani Barragan PROTIMEon 03-24-2022 INR Coag (PPP) [Relative time] 1.19 {INR} Normal [facility] Comment on above: Performed By: #### P TT, PT ####[facility] Rskozkosdh[address] [place], [place] [address]Dr. Bhavani Barragan INR GUIDELINES SEE BELOW Normal [facility] Comment on above: Result Comment: WALKER RED INR: 2.0 - 3.0 CONDITIONS NOT LISTED BELOW 2.5 - 3.5 FOR PROSTHETIC HEART VALVE REPLACEMENT 2.5 - 3.5 RECURRENT THROMBOSIS Performed By: #### P TT, PT ####[facility] Csbsqzdvrv26[address] [place], [place] [address]Dr. Bhavani Barragan PT Coag (PPP) [Time] 12.7 s Critically high 9.0-11.6 [facility] Comment on above: Performed By: #### P TT, PT ####[facility] Ttqpklandm069[address] [place], [place] [address]Dr. Bhavani Barragan PTTon 03-24-2022 aPTT Coag (Bld) [Time] 29.4 s Normal 22.3-36.2 [facility] Comment on above: Performed By: #### P TT, PT ####[facility] Zylgpjqmdd7316[address] [place], [place] [address]Dr. Bhavani Barragan AMMONIAon 03-23-2022 Ammonia (P) [Moles/Vol] 26 umol/L Normal 11-32 [facility] Comment on above: Performed By: #### A MM ####[facility] Pxjeibxkzs67[address] [place], [place] [address]Dr. Bhavani Barragan AMYLASEon 03-23-2022 Amylase [Catalytic activity/Vol] 21 U/L Critically low 25-115 [facility] Comment on above: Performed By: #### A MY, LIPA, BNP ####[facility] Khvgnathhw076[address] [place], [place] [address]Dr. Bhavani Barragan BNPon 03-23-2022 Natriuretic peptide B (Bld) [Mass/Vol] 6713.0 pg/mL Critically high <=1,800.0 [facility] Comment on above: Result Comment: repe ated Performed By: #### B LUNCH COOK, CMP ####[facility] Mhaglocspp9035[address] [place], [place] [address]Dr. Bhavani Barragan Natriuretic peptide B (Bld) [Mass/Vol] 6961.0 pg/mL Critically high <=1,800.0 [facility] Comment on above: Performed By: #### A MY, LIPA, BNP ####[facility] Lrxokzzksc[address] [place], [place] [address]Dr. Bhavani Barragan CBC W MANUAL DIFFon 03-23-20 22 ANISOCYTOSIS 1+ Normal [facility] Comment on above: Performed By: #### C BCMAN ####[facility] [address]aq[address]jqsx[address] [place] [address]Dr. Bhavani Barragan ATYPICAL LYMPH # Normal [facility] Comment on above: Performed By: #### C BCMAN ####[facility] Fyaddeolgz9006 [place] [id number]. Bhavani Barragan ATYPICAL LYMPH % Normal [facility] Comment on above: Performed By: #### C BCJERSON ####[facility] Fbqyhkuxco[address] [place], [place] [address]Dr. Bhavani Barragan BAND # 0.6 103/ul Critically high 0.0-0.3 [facility] Comment on above: Performed By: #### C BCJERSON ####[facility] Dapjzdupdi95[address] [place], [place] [address]Dr. Bhavani Barragan BAND % 2 % Normal 0-5 [facility] Comment on above: Performed By: #### C OMID ####[facility] Hyinupennu699[address] [place], [place] [address]Dr. Bhavani Barragan BASOM # 0.00 103/ul Normal 0.00-0.10 [facility] Comment on above: Performed By: #### C BCJERSON ####[facility] Sxzscoplkn7[address] [place], [place] [address]Dr. Bhavani Barragan BASOM % 0.0 % Critically low 0.2-2.[address] [facility] Comment on above: Performed By: #### C BCJERSON ####[facility] Mchtrotvtb[address] [place], [place] [address]Dr. Bhavani Barragan BLAST # Normal [facility] Comment on above: Performed By: #### C BCMAN ####[facility] Unieggcvig[address] [place], [place] [address]Dr. Bhavani Barragan BLAST % Normal [facility] Comment on above: Performed By: #### C BCJERSON ####[facility] Tfnonwxavd169[address] [place], [place] [address]Dr. Yiroxi Barragan CORRECTED WBC Normal 4.0-11.0 [facility] Comment on above: Performed By: #### C BCMAN ####[facility] Ntmfessupb2833 [place] [id number]. Bhavani Barragan EOS # 0.30 103/ul Normal 0.00-0.70 [facility] Comment on above: Performed By: #### C BCJERSNO ####[facility] Bvmgfkgqtb7158 [place] [phone]. Bhavani Barragan EOS% 1.0 % Normal 0.9-7.0 [facility] Comment on above: Performed By: #### C BCJERSON ####[facility] Nmormbbfma3423 [place] [phone]. Bhavani Barragan HCT 48.1 % Critically high 36.0-48.0 [facility] Comment on above: Performed By: #### C OMID ####[facility] Nioxxpukvk23[address] [place] [address]Dr. Bhavani Barragan HGB 14.6 g/dl Normal 12.0-16.0 [facility] Comment on above: Performed By: #### C OMID ####[facility] Ceqvtswinp1323 [place] [phone]. Bhavani Barragan LYMPHM # 0.90 103/ul Critically low 1.20-3.80 [facility] Comment on above: Performed By: #### C OMID ####[facility] Wuaurswmpc4789 [place] [phone]. Bhavani Barragan LYMPHM% 3.0 % Critically low 20.5-60.[address] [facility] Comment on above: Performed By: #### C BCJERSON ####[facility] Fqjihypmme4043 [place] [id number]. Bhavani Barragan MCH 29.4 pg Normal 26.7-34.0 [facility] Comment on above: Performed By: #### C OMID ####[facility] Wslbqgruot3600 [place] [phone]. Bhavani Barragan MCHC 30.4 g/dl Normal 29.9-35.2 [facility] Comment on above: Performed By: #### C OMID ####[facility] Vyytaskmjo9559 [place] [phone]. Bhavani Barragan MCV 96.8 fL Normal 81.0-99.0 [facility] Comment on above: Performed By: #### Jany ANNE ####[facility] Fevmpqlvkd5473 [place] [phone]. Bhavani Barragan METAMYELOCYTE # Normal [facility] Comment on above: Performed By: #### C OMID ####[facility] Fucfetdcup1777 [place] [address]Dr. Bhavani Barragan METAMYELOCYTE % Normal [facility] Comment on above: Performed By: #### C OMID ####[facility] Pucrpktthl67[address] [place], [place] [address]Dr. Bhavani Barragan MONOM# 0.60 103/ul Normal 0.30-0.80 [facility] Comment on above: Performed By: #### Jany ANNE ####[facility] Dcmwfcgbyr[address] [place], [place] [address]Dr. Bhavani Barragan MONOM% 2.0 % Normal 1.7-12.0 [facility] Comment on above: Performed By: #### Jany ANNE ####[facility] Cemtjspfkb[address] [place], [place] [address]Dr. Bhavani Barragan MPV 10.2 fL Normal 9.5-13.5 [facility] Comment on above: Performed By: #### Jany ANNE ####[facility] Sitbqkjzin6[address] [place], [place] [address]Dr. Bhavani Barragan MYELOCYTE # Normal [facility] Comment on above: Performed By: #### C OMID ####[facility] Mqmjkcajam[address] [place], [place] [address]Dr. Bhavani Barragan MYELOCYTE % Normal [facility] Comment on above: Performed By: #### Jany ANNE ####[facility] Hmblbgaihv[address] [place], [place] [address]Dr. Bhavani Barragna NRBC Normal [facility] Comment on above: Performed By: #### Jany ANNE ####[facility] Dxdyyuibtg7684 [place], [place] [address]Aw. Bhavani Barragan PLT 391 103/ul Normal 150-450 [facility] Comment on above: Performed By: #### C OMID ####[facility] Akwimtaols0707 [place] [phone]. Bhavani Barragan RBC 4.97 106/ul Normal 4.20-5.40 [facility] Comment on above: Performed By: #### C OMID ####[facility] Euhewqaluk8256 [place] [phone]. Bhavani Barragan RDW 15.8 % Critically high 11.0-15.0 [facility] Comment on above: Performed By: #### C OMID ####[facility] Oaegfzjnoj1719 [place] [phone]. Bhavani Barragan SEG # 27.60 103/ul Critically high 1.40-6.50 [facility] Comment on above: Performed By: #### Jany ANNE ####[facility] Nxwbrlrgnu4274 [place] [phone]. Bhavani Barragan SEG % 92.0 % Critically high 43.0-75.0 [facility] Comment on above: Performed By: #### Jany ANNE ####[facility] Bzesjbjjmm4571 [place] [phone]. Bhavani Barragan WBC 30.0 103/ul Critically high 4.0-11.0 [facility] Comment on above: Performed By: #### Jany ANNE ####[facility] Qpvebuufhl5354 [place] [phone]. Bhavani Barragan LIPASEon 03-23-2022 Lipase [Catalytic activity/Vol] 35.0 U/L Critically low 73.0-393.0 [facility] Comment on above: Performed By: #### A MY, LIPA, BNP ####[facility] Ewvbaqigim6145 [place] [phone]. Bhavani Barragan POINT OF CARE GLUCOSEon Glucose [Mass/Vol] 141 mg/dL Critically high 74-106 [facility] Comment on above: Performed By: #### P OCGLUC ####[facility] Xwfgykojpf0104 [place] [address]Dr. Bhavani Braragan Glucose [Mass/Vol] 107 mg/dL Critically high 74-106 [facility] Comment on above: Performed By: #### P OCGLUC ####[facility] Tmivrwlobf1394 [place] [address]Dr. Bhavani Barragan Glucose [Mass/Vol] 152 mg/dL Critically high 74-106 [facility] Comment on above: Performed By: #### P OCGLUC ####[facility] Wdwgorukmm2929 [place] [address]Dr. Bhavani Barragan PROF 14(COMP METB)on 022 Albumin [Mass/Vol] 2.4 g/dL Critically low 3.4-5.0 [facility] Comment on above: Performed By: #### B LUNCH COOK, CMP ####[facility] Yhknlwsgrh[address] [place], [place] [address]Dr. Bhavani Barragan Albumin/Globulin [Mass ratio] 0.6 {ratio} Normal [facility] Comment on above: Performed By: #### B LUNCH COOK, CMP ####[facility] Gtucipscms[address] [place], [place] [address]Dr. Bhavani Barragan ALP [Catalytic activity/Vol] 298 U/L Critically high 46-116 [facility] Comment on above: Performed By: #### B LUNCH COOK, CMP ####[facility] Nmvgiqztro7431 [place] [address]Dr. Bhavani Barragan ALT [Catalytic activity/Vol] 280 U/L Critically high 14-59 [facility] Comment on above: Performed By: #### B LUNCH COOK, CMP ####[facility] Sqkiayiitg6608 [place] [address]Dr. Bhavani Barragan Anion gap [Moles/Vol] 15.2 mmol/L Normal [facility] Comment on above: Performed By: #### B LUNCH COOK, CMP ####[facility] Gtfadehbhc0203 [place] [address]Dr. Bhavani Barragan AST [Catalytic activity/Vol] 146 U/L Critically high 15-37 [facility] Comment on above: Performed By: #### B LUNCH COOK, CMP ####[facility] Ydesnxthvg0406 [place] [address]Dr. Bhavani Barragan Bilirubin [Mass/Vol] 1.8 mg/dL Critically high 0.2-1.0 [facility] Comment on above: Performed By: #### B LUNCH COOK, CMP ####[facility] Euudykjauy[address] [place], [place] [address]Dr. Jayceeroxi Laurel Calcium [Mass/Vol] 7.7 mg/dL Critically low 8.5-10.1 Th e [facility] Comment on above: Performed By: #### B LUNCH COOK, CMP ####[facility] Fhjewqyvuo[address] [place], [place] [address]Dr. Jayceeroxi Laurel Chloride [Moles/Vol] 105 mmol/L Normal 98-107 [facility] Comment on above: Performed By: #### B LUNCH COOK, CMP ####[facility] Auimybpata595[address] [place], [place] [address]Dr. Jayceeroxi Laurel CO2 [Moles/Vol] 22.0 mmol/L Normal 21.0-32.0 [facility] Comment on above: Performed By: #### B LUNCH COOK, CMP ####[facility] Tivowfvvrb5764[address] [place], [place] [address]Dr. Bhavani Laurel Creatinine [Mass/Vol] 1.44 mg/dL Critically high 0.55-1.02 [facility] Comment on above: Performed By: #### B LUNCH COOK, CMP ####[facility] Bczvvpijhf7327[address] [place], [place] [address]Dr. Jayceeroxi Laurel EGFR-AF MICRONESIAN 42 mL/min/1.73m2 Critically low >=60 [facility] Comment on above: Performed By: #### B LUNCH COOK, CMP ####[facility] Eoojduwhaj0264[address] [place], [place] [address]Dr. Jayceeroxi Laurel EGFR-NON AF MICRONESIAN 35 mL/min/1.73m2 Critically low >=60 [facility] Comment on above: Performed By: #### B LUNCH COOK, CMP ####[facility] Duojigotut6160[address] [place], [place] [address]Dr. Bhavani Barragan Globulin (S) [Mass/Vol] 4.0 g/dL Normal [facility] Comment on above: Performed By: #### B LUNCH COOK, CMP ####[facility] Ujuvwyftqr0910[address] [place], [place] [address]Dr. Bhavani Barragan Glucose [Mass/Vol] 136 mg/dL Critically high 74-106 [facility] Comment on above: Performed By: #### B LUNCH COOK, CMP ####[facility] Cwioutbiqu747[address] [place], [place] [address]Dr. Bhavani Barragan Potassium [Moles/Vol] 4.2 mmol/L Normal 3.5-5.1 [facility] Comment on above: Performed By: #### B LUNCH COOK, CMP ####[facility] Svxxxvqgkt100[address] [place], [place] [address]Dr. Bhavani Barragan Protein [Mass/Vol] 6.4 g/dL Normal 6.4-8.2 [facility] Comment on above: Performed By: #### B LUNCH COOK, CMP ####[facility] Edbwznsjqn0417[address] [place], [place] [address]Dr. Bhavani Barragan Sodium [Moles/Vol] 138 mmol/L Normal 136-145 [facility] Comment on above: Performed By: #### B LUNCH COOK, CMP ####[facility] Qtgvucumcp6425[address] [place], [place] [address]Dr. Bhavani Barragan Urea nitrogen [Mass/Vol] 23.0 mg/dL Critically high 7.0-18.0 [facility] Comment on above: Performed By: #### B LUNCH COOK, CMP ####[facility] Atououctox60[address] [place], [place] [address]Dr. Bhavani Barragan Urea nitrogen/Creatinine [Mass ratio] 16.0 mg/mg Normal [facility] Comment on above: Performed By: #### B LUNCH COOK, CMP ####[facility] Kwyqqukyga[address] [place], [place] [address]Dr. Bhavani Barragan PROTIMEon 03-23-2022 INR Coag (PPP) [Relative time] 1.53 {INR} Normal [facility] Comment on above: Performed By: #### P TT, PT ####[facility] Rutwfcqgcr[address] [place], [place] [address]Dr. Bhavani Barragan INR GUIDELINES SEE BELOW Normal The [facility] Comment on above: Result Comment: WALKER RED INR: 2.0 - 3.0 CONDITIONS NOT LISTED BELOW 2.5 - 3.5 FOR PROSTHETIC HEART VALVE REPLACEMENT 2.5 - 3.5 RECURRENT THROMBOSIS Performed By: #### P TT, PT ####[facility] Txjxszjidp[address] [place], [place] [address]Dr. Bhavani Barragan PT Coag (PPP) [Time] 16.1 s Critically high 9.0-11.6 [facility] Comment on above: Performed By: #### P TT, PT ####[facility] Vzjgigemaq[address] [place], [place] [address]Dr. Bhavani Barragan PTTon 03-23-2022 aPTT Coag (Bld) [Time] 29.9 s Normal 22.3-36.2 [facility] Comment on above: Performed By: #### P TT, PT ####[facility] Whwnfvjdvx[address] [place], [place] [address]Dr. Bhavani Barragan BILIRUBIN CONJUGATED (DIRECT )on 03-22-2022 BILI, CONJUGATED 2.3 mg/dL Critically high 0.0-0.2 [facility] Comment on above: Performed By: #### D RAI ####[facility] Odkokv[address]ql[address] [place], [place] [address]Dr. Bhavani Barragan BNPon 03-22-2022 Natriuretic peptide B (Bld) [Mass/Vol] 2436.0 pg/mL Critically high <=1,800.0 [facility] Comment on above: Result Comment: this BNP was run on specimen from ER drawn on 03/22 at 1606 Performed By: #### B LUNCH COOK ####[facility] [address] [place], [place] [address]Dr. Bhavani Barragan CBC W MANUAL DIFFon 03-22-20 22 ATYPICAL LYMPH # Normal [facility] Comment on above: Performed By: #### C BCMAN ####[facility] [address]ecgsdkxmg[address] [place], [place] [address]Dr. Yilan Barragan ATYPICAL LYMPH % Normal [facility] Comment on above: Performed By: #### C BCMAN ####[facility] Pncmbypfae3296 [place] [id number]. Yiroxi Barragan BAND # 0.9 103/ul Critically high 0.0-0.3 The [facility] Comment on above: Performed By: #### C BCMAN ####[facility] Drefsknqkt6209 [place] [phone]. Yilan Barragan BAND % 3 % Normal 0-5 [facility] Comment on above: Performed By: #### C BCMAN ####[facility] Dkybruahsi6320 [place] [id number]. Yiroxi Barragan BASOM # 0.00 103/ul Normal 0.00-0.10 [facility] Comment on above: Performed By: #### C BCMAN ####[facility] Pescocxdkb[address] [place] [address]Dr. Bhavani Barragan BASOM % 0.0 % Critically low 0.2-2.[address] [facility] Comment on above: Performed By: #### C BCMAN ####[facility] Ooxehijwub6986 [place] [phone]. Yilan Barragan BLAST # Normal [facility] Comment on above: Performed By: #### C BCMAN ####[facility] Fjbflqmkxy8049 [place] [phone]. Yiroxi Barragan BLAST % Normal [facility] Comment on above: Performed By: #### C BCJERSON ####[facility] Mjqhcrztfd0833 [place] [phone]. Bhavani Barragan CORRECTED WBC Normal 4.0-11.0 The [facility] Comment on above: Performed By: #### C BCMAN ####[facility] Soxlibxjdi6770 [place] [phone]. Bhavani Barragan EOS # 0.00 103/ul Normal 0.00-0.70 [facility] Comment on above: Performed By: #### C BCJERSON ####[facility] [address]frx[address] [place], [place] [address]Dr. Yilan Barragan EOS% 0.0 % Critically low 0.9-7.0 [facility] Comment on above: Performed By: #### C OMID ####[facility] Ngzvtxjmmy1682 [place] [phone]. Bhavani Barragan HCT 44.6 % Normal 36.0-48.0 [facility] Comment on above: Performed By: #### C OMID ####[facility] Azxhlfjfok6675 [place] [phone]. Bhavani Barragan HGB 13.9 g/dl Normal 12.0-16.0 [facility] Comment on above: Performed By: #### C OMID ####[facility] Wqycqqjjcj6972 [place] [phone]. Bhavani Barragan LYMPHM # 0.60 103/ul Critically low 1.20-3.80 [facility] Comment on above: Performed By: #### Jany ANNE ####[facility] Vbrvvtrwda1728 [place] [phone]. Bhavani Barragan LYMPHM% 2.0 % Critically low 20.5-60.0 [facility] Comment on above: Performed By: #### Jany ANNE ####[facility] Gjvmdidtdm8701 [place] [phone]. Bhavani Barragan MCH 29.8 pg Normal 26.7-34.0 [facility] Comment on above: Performed By: #### Jany ANNE ####[facility] Tnwerpmigk3166 [place] [phone]. Bhavani Barragan MCHC 31.2 g/dl Normal 29.9-35.2 [facility] Comment on above: Performed By: #### C OMID ####[facility] Mbceonskge1824 [place] [phone]. Bhavani Barragan MCV 95.7 fL Normal 81.0-99.0 [facility] Comment on above: Performed By: #### Jany ANNE ####[facility] Ngyqhuujpw0390 [place] [phone]. Bhavani Barragan METAMYELOCYTE # Normal [facility] Comment on above: Performed By: #### C OMID ####[facility] [address]cfhoah[address] [place], [place] [address]Sl. Bhavani Barragan METAMYELOCYTE % Normal [facility] Comment on above: Performed By: #### C OMID ####[facility] Bayyidmlqp7786 [place], [place] [address]Gw. Bhavani Barragan MONOM# 0.60 103/ul Normal 0.30-0.80 [facility] Comment on above: Performed By: #### C OMID ####[facility] Gwzflomycr6602 [place] [phone]. Bhavani Barragan MONOM% 2.0 % Normal 1.7-12.0 [facility] Comment on above: Performed By: #### C OMID ####[facility] Dcrtsybrtn5319 [place] [phone]. Bhavani Barragan MPV 9.7 fL Normal 9.5-13.5 [facility] Comment on above: Performed By: #### C OMID ####[facility] Pquurccime0498 [place] [phone]. Bhavani Barragan MYELOCYTE # Normal [facility] Comment on above: Performed By: #### C OMID ####[facility] Swpgosztda4154 [place] [phone]. Bhavani Barragan MYELOCYTE % Normal [facility] Comment on above: Performed By: #### C OMID ####[facility] Xtggwftrxj2350 [place] [phone]. Bhavani Barragan NRBC Normal [facility] Comment on above: Performed By: #### C OMID ####[facility] Ltwrazwhij8595 [place] [phone]. Bhavani Barragan PLT 436 103/ul Normal 150-450 [facility] Comment on above: Performed By: #### C OMID ####[facility] Ytwdhflvcj2750 [place] [phone]. Bhavani Barragan RBC 4.66 106/ul Normal 4.20-5.40 [facility] Comment on above: Performed By: #### C OMID ####[facility] Qdsxoeyedf2657 [place], [place] [address]Hy. Bhavani Barragan RDW 15.2 % Critically high 11.0-15.0 [facility] Comment on above: Performed By: #### C OMID ####[facility] Khxllymppd0678 [place], [place] [address]Fh. Bhavani Barragan SEG # 28.09 103/ul Critically high 1.40-6.50 [facility] Comment on above: Performed By: #### C OMID ####[facility] Kxeiwgcxiu6228 [place], [place] [address]Da. Bhavani Barragan SEG % 93.0 % Critically high 43.0-75.0 [facility] Comment on above: Performed By: #### C OMID ####[facility] Nrgztvmiwz2897 [place] [phone]. Bhavani Barragan WBC 30.2 103/ul Critically high 4.0-11.0 [facility] Comment on above: Result Comment: test repeated critical value verified Performed By: #### C OMID ####[facility] Hdjeinjjyl8514 [place] [phone]. Bhavani Barragan CULTURE BLOODon 03-22-2022 Microscopic examination of blood, culture Culture Observations: NO GROWTH AT 5 DAYS. Normal [facility] Comment on above: Performed By: #### B LDCX2 ####[facility] Maozonqcyi1847 [place] [phone]. Bhavani Barragan Performed By: #### B LDCX1 ####[facility] Qmyzwakuyv2202 [place] [phone]. Bhavani Barragan Covid-19 PCR (CVDTB)on SARS-CoV-2 (COVID-19) RNA MATTHEW+probe Ql (Unsp spec) Not detected Normal NOT DETECTED [facility] Comment on above: Result Comment: When [...] for this test is supported by the [place] of Health and Human Service's declaration that [...] be used). Performed By: #### C VDTB ####[facility] Adnsitzcdg[address] [place], [place] [address]Dr. Bhavani Barragan ER URINE PROFILEon 2 Bilirubin Ql (U) MODERATE Abnormal NEGATIVE [facility] Comment on above: Performed By: #### U MICRO, ERUR ####[facility] Tlnaytasep[address] [place], [place] [address]Dr. Bhavani Barragan Clarity (U) CLEAR Normal CLEAR [facility] Comment on above: Performed By: #### U MICRO, ERUR ####[facility] [address]ucoagyuv[address] [place], [place] [address]Dr. Bhavani Barragan Color (U) YELLOW Normal YELLOW [facility] Comment on above: Performed By: #### U MICRO, ERUR ####[facility] Ssrzxnkkes[address] [place], [place] [address]Dr. Bhavani Barragan ERUAHD A micrscopic examination will be performed if indicated. Normal [facility] Comment on above: Performed By: #### U MICRO, ERUR ####[facility] Etndbuwqmn[address] [place], [place] [address]Dr. Bhavani Barragan Glucose Ql (U) Negative Normal NEGATIVE The [facility] Comment on above: Performed By: #### U MICRO, ERUR ####[facility] Cwzxnkodwl[address] [place], [place] [address]Dr. Bhavani Barragan Hemoglobin Ql (U) TRACE-INTACT Abnormal NEGATIVE [facility] Comment on above: Performed By: #### U MICRO, ERUR ####[facility] Qyxeuuopkn7599 [place] [address]Dr. Bhavani Barragan Ketones Ql (U) Negative Normal NEGATIVE The [facility] Comment on above: Performed By: #### U MICRO, ERUR ####[facility] Bdefycbopa0290 [place] [address]Dr. Bhavani Barragan LEUKOCYTES LARGE Abnormal NEGATIVE [facility] Comment on above: Performed By: #### U MICRO, ERUR ####[facility] Pqrdggusmo[address] [place], [place] [address]Dr. Bhavani Barragan Nitrite Ql (U) Negative Normal NEGATIVE The [facility] Comment on above: Performed By: #### U MICRO, ERUR ####[facility] V[address]jjoahklf[address] [place], [place] [address]Dr. Bhavani Barragan pH (U) 5.5 [pH] Normal 5-9 [facility] Comment on above: Performed By: #### U MICRO, ERUR ####[facility] Bnmmuwfbrg[address] [place], [place] [address]Dr. Bhavani Barragan Protein (U) [Mass/Vol] 30 mg/dL Abnormal NEGATIVE/ TRACE [facility] Comment on above: Performed By: #### U MICRO, ERUR ####[facility] Hynrnsuhyg[address] [place], [place] [address]Dr. Bhavani Barragan SPEC GRAVITY 1.020 Normal 1.005-<=1.02 5 [facility] Comment on above: Performed By: #### U MICRO, ERUR ####[facility] Iroojcjjlo[address] [place], [place] [address]Dr. Bhavani Barragan UR MICRO IND INDICATED Normal [facility] Comment on above: Performed By: #### U MICRO, ERUR ####[facility] Bnksueaqrc[address] [place], [place] [address]Dr. Bhavani Barragan Urobilinogen Qn (U) 4 {Ridge'U}/dL Abnormal 0.2 - 1.0 [facility] Comment on above: Performed By: #### U MICRO, ERUR ####[facility] Orucjtpeln3[address] [place], [place] [address]Dr. Bhavani Barragan LACTATE/LACTIC ACIDon 05-05- 2022 Lactate [Moles/Vol] 0.9 mmol/L Normal 0.4-2.0 [facility] Comment on above: Performed By: #### L ACT ####[facility] Ckzlokmmxi8267 [place] [address]Dr. Bhavani Barragan Lactate [Moles/Vol] 1.2 mmol/L Normal 0.4-2.0 [facility] Comment on above: Performed By: #### L ACT ####[facility] Wzihtmggvx[address] [place], [place] [address]Dr. Bhavani Barragan POINT OF CARE GLUCOSEon Glucose [Mass/Vol] 188 mg/dL Critically high 74-106 [facility] Comment on above: Performed By: #### P OCGLUC ####[facility] N[address]qqfzqrp[address] [place], [place] [address]Dr. Bhavani Barragan PROF 14(COMP METB)on 022 Albumin [Mass/Vol] 2.9 g/dL Critically low 3.4-5.0 [facility] Comment on above: Performed By: #### C MP ####[facility] [address]qgkiydx10[address] [place], [place] [address]Dr. Bhavani Barragan Albumin/Globulin [Mass ratio] 0.7 {ratio} [facility] Comment on above: Performed By: #### C MP ####[facility] Thgudsskfa[address] [place], [place] [address]Dr. Bhavani Barragan ALP [Catalytic activity/Vol] 372 U/L Critically high 46-116 [facility] Comment on above: Performed By: #### C MP ####[facility] Rymxjihsve[address] [place], [place] [address]Dr. Bhavani Barragan ALT [Catalytic activity/Vol] 402 U/L Critically high 14-59 [facility] Comment on above: Performed By: #### C MP ####[facility] Kmweymkono2376 [place] [address]Dr. Bhavani Barragan Anion gap [Moles/Vol] 10.6 mmol/L Normal [facility] Comment on above: Performed By: #### C MP ####[facility] Aoqohcyhpt2941 [place] [address]Dr. Bhavani Barragan AST [Catalytic activity/Vol] 346 U/L Critically high 15-37 [facility] Comment on above: Performed By: #### C MP ####[facility] Drlkygalvs3179 [place] [phone]. Bhavani Barragan Bilirubin [Mass/Vol] 2.8 mg/dL Critically high 0.2-1.0 [facility] Comment on above: Performed By: #### C MP ####[facility] [address]vohklpqku[address] [place], [place] [address]Dr. Bhavani Barragan Calcium [Mass/Vol] 7.9 mg/dL Critically low 8.5-10.1 [facility] Comment on above: Performed By: #### C MP ####[facility] [address]wvtyirn[address] [place], [place] [address]Dr. Bhavani Barragan Chloride [Moles/Vol] 106 mmol/L Normal 98-107 [facility] Comment on above: Performed By: #### C MP ####[facility] Amgnnrrcyj6[address] [place], [place] [address]Dr. Bhavani Barragan CO2 [Moles/Vol] 23.5 mmol/L Normal 21.0-32.0 [facility] Comment on above: Performed By: #### C MP ####[facility] Sqqnlowziy4[address] [place], [place] [address]Dr. Bhavani Barragan Creatinine [Mass/Vol] 1.57 mg/dL Critically high 0.55-1.02 [facility] Comment on above: Performed By: #### C MP ####[facility] Qqbiashcit57[address] [place], [place] [address]Dr. Bhavani Laurel EGFR-AF MICRONESIAN 38 mL/min/1.73m2 Critically low >=60 [facility] Comment on above: Performed By: #### C MP ####[facility] [address]laesbvgk[address] [place], [place] [address]Dr. Bhavani Laurel EGFR-NON AF MICRONESIAN 32 mL/min/1.73m2 Critically low >=60 [facility] Comment on above: Performed By: #### C MP ####[facility] Zsnoctfemp5762 [place] [address]Dr. Bhavani Barragan Globulin (S) [Mass/Vol] 4.0 g/dL Normal [facility] Comment on above: Performed By: #### C MP ####[facility] Febkptnznh6275 [place] [address]Dr. Bhavani Barragan Glucose [Mass/Vol] 151 mg/dL Critically high 74-106 [facility] Comment on above: Performed By: #### C MP ####[facility] Ljyggybzky3103 [place] [address]Dr. Bhavani Barragan Potassium [Moles/Vol] 4.1 mmol/L Normal 3.5-5.1 [facility] Comment on above: Performed By: #### C MP ####[facility] Bptaheyhfr2[address] [place], [place] [address]Dr. Bhavani Barragan Protein [Mass/Vol] 6.9 g/dL Normal 6.4-8.2 [facility] Comment on above: Performed By: #### C MP ####[facility] Zolqlixbxk6[address] [place], [place] [address]Dr. Bhavani Barragan Sodium [Moles/Vol] 136 mmol/L Normal 136-145 [facility] Comment on above: Performed By: #### C MP ####[facility] Kseyxgxlsf[address] [place], [place] [address]Dr. Bhavani Barragan Urea nitrogen [Mass/Vol] 23.0 mg/dL Critically high 7.0-18.0 [facility] Comment on above: Performed By: #### C MP ####[facility] Gehnracubt6[address] [place], [place] [address]Dr. Bhavani Barragan Urea nitrogen/Creatinine [Mass ratio] 14.6 mg/mg Normal [facility] Comment on above: Performed By: #### C MP ####[facility] Xddnqdekbi1396 [place] [address]Dr. Bhavani Barragan URINE MICROSCOPIC ONLYon BACTERIA LARGE Abnormal NONE SEEN [facility] Comment on above: Performed By: #### U MICRO, ERUR ####[facility] Whrvuqvann5904 [place] [address]Dr. Bhavani Barragan Bacteria identified Cx Nom (U) INDICATED Normal [facility] Comment on above: Performed By: #### U MICRO, ERUR ####[facility] Rszbcmoxyp6026 [place] [address]Dr. Bhavani Barragan CAST NONE SEEN Normal NONE SEEN [facility] Comment on above: Performed By: #### U MICRO, ERUR ####[facility] Dxjjzjhoxf0416 [place] [address]Dr. Bhavani Barragan Crystals LM Nom (Urine sed) NONE SEEN Normal NONE SEEN [facility] Comment on above: Performed By: #### U MICRO, ERUR ####[facility] Bifsffoowg3516 [place] [address]Dr. Bhavani Barragan Epithelial cells LM Ql (Urine sed) FEW Abnormal NONE SEEN /RARE [facility] Comment on above: Performed By: #### U MICRO, ERUR ####[facility] Xotbzgtzqs[address] [place], [place] [address]Dr. Bhavani Barragan MUCOUS NONE SEEN Normal NONE SEEN [facility] Comment on above: Performed By: #### U MICRO, ERUR ####[facility] Ckoyczbazc[address] [place], [place] [address]Dr. Bhavani Barragan RBC 2-5 Abnormal 0-2 [facility] Comment on above: Performed By: #### U MICRO, ERUR ####[facility] C[address]znonywn[address] [place], [place] [address]Dr. Bhavani Barragan WBC (U) [#/Vol] /uL Abnormal NONE SEEN [facility] Comment on above: Performed By: #### U MICRO, ERUR ####[facility] N[address]xzwoyict[address] [place], [place] [address]Dr. Bhavani Barragan US SINGLE QUAD RT UPPERon US SINGLE QUAD RT UPPER Normal [facility] XR CHEST 1 Von 03-22-2022 XR CHEST 1 V Normal [facility] CBC AND ELECTRONIC DIFFon Basophils (Bld) [#/Vol] 0.23 10*3/uL High 0.00-0.15 [facility] Comment on above: Performed By: #### R KERLINE, [id number] #### [facility] [place] [facility] (DEFAULT) [address] [address] Basophils/100 WBC (Bld) 0.9 % Normal [facility] Comment on above: Performed By: #### R KERLINE, [id number] #### [facility] [place] [facility] (DEFAULT) [address] [address] DIFF STATUS Electronic Differential Normal [facility] Comment on above: Performed By: #### R KERLINE, [id number] #### [facility] [place] [facility] (DEFAULT) [address] [address] Eosinophils (Bld) [#/Vol] 10*3/uL Normal 0.00-0.42 [facility] Comment on above: Performed By: #### R KERLINE, [id number] #### [facility] (DEFAULT) [address] [address] Eosinophils/100 WBC (Bld) 0.0 % Normal [facility] Comment on above: Performed By: #### R KERLINE, [id number] #### [facility] (DEFAULT) [address] [place] [address] Hematocrit (Bld) [Volume fraction] 52.1 % High 34.9-44.3 [facility] Comment on above: Performed By: #### R ETIJany, [id number] #### [facility] [place] [facility] (DEFAULT) [address] [address] Hemoglobin (Bld) [Mass/Vol] 16.8 g/dL High 11.4-15.2 [facility] Comment on above: Performed By: #### R ETIJany, [id number] #### [facility] [place] [facility] (DEFAULT) [address] [address] Immature Grans % 1.3 % Normal [facility] Comment on above: Performed By: #### R ETIJany, [id number] #### [facility] [place] [facility] (DEFAULT) [address] [address] Immature Grans Absolute 0.34 K/uL High <=0.09 [facility] Comment on above: Performed By: #### R ETIC, [id number] #### [facility] [place] [facility] (DEFAULT) [address] [address] Lymphocytes (Bld) [#/Vol] 1.24 10*3/uL Normal 1.16-3.51 [facility] Comment on above: Performed By: #### R ETIC, [id number] #### [facility] (DEFAULT) [address] [address] Lymphocytes/100 WBC (Bld) 4.9 % Normal [facility] Comment on above: Performed By: #### R ETIC, [id number] #### [facility] (DEFAULT) [address] [address] MCV (RBC) [Entitic vol] 97.4 fL Normal 79.6-97.7 [facility] Comment on above: Performed By: #### R ETIC, [id number] #### [facility] (DEFAULT) [address] [address] Mean Cell Hgb 31.4 pg Normal 25.9-33.9 [facility] Comment on above: Performed By: #### R ETIC, [id number] #### [facility] (DEFAULT) [address] [address] Mean Cell Hgb Conc 32.2 g/dL Normal 31.4-35.9 [facility] Comment on above: Performed By: #### R ETIC, [id number] #### [facility] [place] [facility] (DEFAULT) [address] [address] Monocytes (Bld) [#/Vol] 0.47 10*3/uL Normal 0.22-0.87 [facility] Comment on above: Performed By: #### R ETIC, [id number] #### [facility] (DEFAULT) [address] [place] [address] Monocytes/100 WBC (Bld) 1.9 % Normal [facility] Comment on above: Performed By: #### R ETIC, [id number] #### [facility] [place] [facility] (DEFAULT) [address] [place] [address] Nucleated RBC 0.1 /100 WBC Normal <=0.2 [facility] Comment on above: Performed By: #### R ETIC, [id number] #### [facility] [place] [facility] (DEFAULT) [address] [place] [address] Platelet mean volume (Bld) [Entitic vol] 11.1 fL Normal 8.5-12.2 [facility] Comment on above: Performed By: #### R ETIC, [id number] #### [facility] [place] [facility] (DEFAULT) [address] [place] [address] Platelets (Bld) [#/Vol] 174 10*3/uL Normal 150-393 [facility] Comment on above: Performed By: #### R ETIC, [id number] #### [facility] [place] [facility] (DEFAULT) [address] [address] RBC (Bld) [#/Vol] 5.35 10*6/uL High 3.91-5.04 [facility] Comment on above: Performed By: #### R ETIC, [id number] #### [facility] (DEFAULT) [address] [place] [address] RBC Distribution 16.3 % High 10.8-14.9 [facility] Comment on above: Performed By: #### R ETIC, [id number] #### [facility] (DEFAULT) [address] [place] [address] Segs + Bands Auto 91.0 % Normal [facility] Comment on above: Performed By: #### R ETIC, [id number] #### [facility] [place] [facility] (DEFAULT) [address] [place] [address] Segs + Bands,Absolute Auto 23.08 K/uL High 1.64-7.28 [facility] Comment on above: Performed By: #### R KERLINE, [id number] #### [facility] (DEFAULT) [address] [place] [address] WBC (Bld) [#/Vol] 25.37 10*3/uL High 3.99-11.19 [facility] Comment on above: Performed By: #### R KERLINE, [id number] #### [facility] (DEFAULT) [address] [place] [address] CMPN WITHOUT GLUCOSEon 11-02 Albumin [Mass/Vol] 4.3 g/dL Normal 3.5-5.0 [facility] Comment on above: Performed By: #### C MPNG #### [facility] [place] [facility] (DEFAULT) [address] [place] [address] ALP [Catalytic activity/Vol] 80 U/L Normal 32-126 [facility] Comment on above: Performed By: #### C MPNG #### [facility] [place] [facility] (DEFAULT) [address] [place] [address] ALT [Catalytic activity/Vol] 8 U/L Low 9-48 [facility] Comment on above: Performed By: #### C MPNG #### [facility] [place] [facility] (DEFAULT) [address] [place] [address] Anion gap [Moles/Vol] 13 mmol/L Normal 7-17 [facility] Comment on above: Performed By: #### C MPNG #### [facility] [place] [facility] (DEFAULT) [address] [place] [address] AST [Catalytic activity/Vol] 14 U/L Normal 14-40 [facility] Comment on above: Performed By: #### C MPNG #### [facility] (DEFAULT) [address] [place] [address] Bilirubin [Mass/Vol] 0.5 mg/dL Normal <1.5 [facility] Comment on above: Performed By: #### C MPNG #### [facility] (DEFAULT) [address] [place] [id number] Calcium [Mass/Vol] 9.1 mg/dL Normal 8.6-10.5 [facility] Comment on above: Performed By: #### C MPNG #### [facility] (DEFAULT) [address] [place] [address] Chloride [Moles/Vol] 108 mmol/L Normal 98-108 [facility] Comment on above: Performed By: #### C MPNG #### [facility] (DEFAULT) [address] [place] [address] CO2 [Moles/Vol] 21 mmol/L Low 22-30 [facility] Comment on above: Performed By: #### C MPNG #### [facility] (DEFAULT) [address] [place] [address] Creatinine [Mass/Vol] 1.36 mg/dL High 0.50-1.20 [facility] Comment on above: Performed By: #### C MPNG #### [facility] (DEFAULT) [address] [place] [address] EST GFR, 45 mL/min/1.73sqM Low >=60 [facility] Comment on above: Performed By: #### C MPNG #### [facility] (DEFAULT) [address] [place] [address] EST GFR,Non 37 mL/min/1.73sqM Low >=60 [facility] Comment on above: Performed By: #### C MPNG #### [facility] (DEFAULT) [address] [place] [address] Potassium [Moles/Vol] 5.0 mmol/L Normal 3.5-5.0 [facility] Comment on above: Performed By: #### C MPNG #### [facility] (DEFAULT) [address] [place] [address] Protein [Mass/Vol] 7.6 g/dL Normal 6.4-8.3 [facility] Comment on above: Performed By: #### C MPNG #### [facility] (DEFAULT) [address] [address] Sodium [Moles/Vol] 137 mmol/L Normal 133-143 [facility] Comment on above: Performed By: #### C MPNG #### [facility] (DEFAULT) [address] [address] Urea nitrogen [Mass/Vol] 42 mg/dL High 06-08 [facility] Comment on above: Performed By: #### C MPNG #### [facility] (DEFAULT) [address] [address] Urea nitrogen/Creatinine [Mass ratio] 31 mg/mg Normal [facility] Comment on above: Performed By: #### C MPNG #### [facility] (DEFAULT) [address] [address] FERRITINon 11-02-2021 Ferritin [Mass/Vol] 19.2 ng/mL Normal 10.0-291.0 [facility] Comment on above: Performed By: #### F ERIB #### [facility] (DEFAULT) [address] [address] RETICULOCYTESon 11-02-2021 Retic Absolute 0.1177 M/uL High 0.0324-0.114 2 [facility] Comment on above: Performed By: #### John CHURCHILL, [id number] #### [facility] (DEFAULT) [address] [address] Retic Count 2.20 % Normal 0.74-2.54 [facility] Comment on above: Performed By: #### John CHURCHILL, [id number] #### [facility] (DEFAULT) [address] [address] CBC AND ELECTRONIC DIFFon Basophils (Bld) [#/Vol] 0.20 10*3/uL High 0.00-0.15 [facility] Comment on above: Performed By: #### L AB980 #### [facility] (DEFAULT) [address] [address] Basophils/100 WBC (Bld) 0.9 % Normal [facility] Comment on above: Performed By: #### L AB980 #### [facility] (DEFAULT) [address] [address] DIFF STATUS Electronic Differential Normal [facility] Comment on above: Performed By: #### L AB980 #### [facility] (DEFAULT) [address] [address] Eosinophils (Bld) [#/Vol] 10*3/uL Normal 0.00-0.42 [facility] Comment on above: Performed By: #### L AB980 #### [facility] (DEFAULT) [address] [address] Eosinophils/100 WBC (Bld) 0.1 % Normal [facility] Comment on above: Performed By: #### L AB980 #### [facility] (DEFAULT) [address] [address] Hematocrit (Bld) [Volume fraction] 47.4 % High 34.9-44.3 [facility] Comment on above: Performed By: #### L AB980 #### [facility] (DEFAULT) [address] [address] Hemoglobin (Bld) [Mass/Vol] 15.4 g/dL High 11.4-15.2 [facility] Comment on above: Performed By: #### L AB980 #### [facility] (DEFAULT) [address] [address] Immature Grans % 3.0 % Normal [facility] Comment on above: Performed By: #### L AB980 #### [facility] (DEFAULT) [address] [address] Immature Grans Absolute 0.67 K/uL High <=0.09 [facility] Comment on above: Performed By: #### L AB980 #### [facility] (DEFAULT) [address] [address] Lymphocytes (Bld) [#/Vol] 1.12 10*3/uL Low 1.16-3.51 [facility] Comment on above: Performed By: #### L AB980 #### [facility] (DEFAULT) [address] [address] Lymphocytes/100 WBC (Bld) 5.0 % Normal [facility] Comment on above: Performed By: #### L AB980 #### [facility] (DEFAULT) [address] [address] MCV (RBC) [Entitic vol] 101.5 fL High 79.6-97.7 [facility] Comment on above: Performed By: #### L AB980 #### [facility] (DEFAULT) [address] [address] Mean Cell Hgb 33.0 pg Normal 25.9-33.9 [facility] Comment on above: Performed By: #### L AB980 #### [facility] (DEFAULT) [address] [address] Mean Cell Hgb Conc 32.5 g/dL Normal 31.4-35.9 [facility] Comment on above: Performed By: #### L AB980 #### [facility] (DEFAULT) [address] [address] Monocytes (Bld) [#/Vol] 0.51 10*3/uL Normal 0.22-0.87 [facility] Comment on above: Performed By: #### L AB980 #### [facility] (DEFAULT) [address] [address] Monocytes/100 WBC (Bld) 2.3 % Normal [facility] Comment on above: Performed By: #### L AB980 #### [facility] (DEFAULT) [address] [place] [address] Nucleated RBC 0.1 /100 WBC Normal <=0.2 [facility] Comment on above: Performed By: #### L AB980 #### [facility] (DEFAULT) [address] [place] [address] Platelet mean volume (Bld) [Entitic vol] 10.4 fL Normal 8.5-12.2 [facility] Comment on above: Performed By: #### L AB980 #### [facility] (DEFAULT) [address] [place] [address] Platelets (Bld) [#/Vol] 289 10*3/uL Normal 150-393 [facility] Comment on above: Performed By: #### L AB980 #### [facility] (DEFAULT) [address] [place] [address] RBC (Bld) [#/Vol] 4.67 10*6/uL Normal 3.91-5.04 [facility] Comment on above: Performed By: #### L AB980 #### [facility] (DEFAULT) [address] [address] RBC Distribution 14.8 % Normal 10.8-14.9 [facility] Comment on above: Performed By: #### L AB980 #### [facility] (DEFAULT) [address] [address] Segs + Bands Auto 88.7 % Normal [facility] Comment on above: Performed By: #### L AB980 #### [facility] (DEFAULT) [address] [place] [address] Segs + Bands,Absolute Auto 20.03 K/uL High 1.64-7.28 [facility] Comment on above: Performed By: #### L AB980 #### [facility] (DEFAULT) [address] [place] [address] WBC (Bld) [#/Vol] 22.56 10*3/uL High 3.99-11.19 [facility] Comment on above: Performed By: #### L AB980 #### [facility] (DEFAULT) [address] [place] [address] IMMUNOPHENOTYPING,CHAPIN Louis 08-17-2021 BKR DX CODE Use Ordering Normal [facility] Comment on above: Order Comment: IMMUN OPHENOTYPING DIAGNOSIS PATIENT NAME: MARÍA ELENA TAFOYA : 1940 ACCN#: [id number] REVIEWED BY: LAURA Moreno [id number] SAMPLE TYPE: Peripheral Blood LABORATORY INTERPRETATION: There [...] % are B cells (CD19+) with a Fisk:Lambda ratio of 2:2 , 73.5 % are T cells (CD3+) with a CD4:CD8 ratio of 2.2 and an absolute CD4+/CD3+ count of 549 ABS/mm3 and 23.7 % are NK cells (positive for CD56 and/or CD16 and negative for CD3). ==== MARKER DESCRIPTION LYM REG% ABS/mm3 NORMAL % NML ABS ==== ABSOLUTE LYMPHOCYTE COUNT [phone] ==== CD19+ B CELL 4.4 49 2.0-21.0 [...] determined The Flow Cytometry Laboratory at [facility]. It has not been cleared or approved by the FDA. This laboratory is certified under the Clinical Laboratory Improvement Amendments (CLIA) as qualified to perform high complexity clinical laboratory testing. This test is used for clinical purposes. It should not be regarded as investigational or for research. The [facility] Flow Cytometry Laboratory lower limit of CLL MRD detection is 0.1% of the gated lymphocytes. Performed By: #### P BIPP #### [facility] (DEFAULT) [address] [place] [address] Flow Interpretation See Comment Normal [facility] Comment on above: Order Comment: IMMUN OPHENOTYPING DIAGNOSIS PATIENT NAME: MARÍA ELENA TAFOYA : 1940 ACCN#: [id number] REVIEWED BY: LAURA Moreno [id number] SAMPLE TYPE: Peripheral Blood LABORATORY INTERPRETATION: There [...] % are B cells (CD19+) with a Fisk:Lambda ratio of 2:2 , 73.5 % are T cells (CD3+) with a CD4:CD8 ratio of 2.2 and an absolute CD4+/CD3+ count of 549 ABS/mm3 and 23.7 % are NK cells (positive for CD56 and/or CD16 and negative for CD3). ==== MARKER DESCRIPTION LYM REG% ABS/mm3 NORMAL % NML ABS ==== ABSOLUTE LYMPHOCYTE COUNT [phone] ==== CD19+ B CELL 4.4 49 2.0-21.0 [...] determined The Flow Cytometry Laboratory at [facility]. It has not been cleared or approved by the FDA. This laboratory is certified under the Clinical Laboratory Improvement Amendments (CLIA) as qualified to perform high complexity clinical laboratory testing. This test is used for clinical purposes. It should not be regarded as investigational or for research. The [facility] Flow Cytometry Laboratory lower limit of CLL MRD detection is 0.1% of the gated lymphocytes. Performed By: #### P BIPP #### [facility] ([facility]) [address] [place] [address] Flow Interpreted by: Efrem Charlton MD [facility] Comment on above: Order Comment: IMMUN OPHENOTYPING DIAGNOSIS PATIENT NAME: MARÍA ELENA TAFOYA : 1940 ACCN#: [id number] REVIEWED BY: LAURA Moreno [id number] SAMPLE TYPE: Peripheral Blood LABORATORY INTERPRETATION: There [...] % are B cells (CD19+) with a Fisk:Lambda ratio of 2:2 , 73.5 % are T cells (CD3+) with a CD4:CD8 ratio of 2.2 and an absolute CD4+/CD3+ count of 549 ABS/mm3 and 23.7 % are NK cells (positive for CD56 and/or CD16 and negative for CD3). ==== MARKER DESCRIPTION LYM REG% ABS/mm3 NORMAL % NML ABS ==== ABSOLUTE LYMPHOCYTE COUNT [phone] ==== CD19+ B CELL 4.4 49 2.0-21.0 [...] determined The Flow Cytometry Laboratory at [facility]. It has not been cleared or approved by the FDA. This laboratory is certified under the Clinical Laboratory Improvement Amendments (CLIA) as qualified to perform high complexity clinical laboratory testing. This test is used for clinical purposes. It should not be regarded as investigational or for research. The [facility] Flow Cytometry Laboratory lower limit of CLL MRD detection is 0.1% of the gated lymphocytes. Performed By: #### P BIPP #### [facility] (DEFAULT) [address] [place] [address] [id number] MUTATION DETECTION , BLOODon 08-17-2021 Receiving Status Accessioned in Lab Normal [facility] Comment on above: Performed By: #### J AK2B #### [facility] (DEFAULT) [address] [place] [address] Performed By: #### B CRSCR #### [facility] (DEFAULT) [address] [place] [address] CBC with Differentialon 01-17 Basophils (Bld) [#/Vol] 0.20 thou/mcL Normal 0.00-0.20 [facility] Comment on above: Performed By: #### 5 7021-8 #### [facility] [address] [place] [address] Basophils/100 WBC (Bld) 0.9 % Normal 0.0-2.0 [facility] Comment on above: Performed By: #### 5 7021-8 #### [facility] [address] [place] [address] Eosinophils (Bld) [#/Vol] 0.00 thou/mcL Normal 0.00-0.70 [facility] Comment on above: Performed By: #### 5 7021-8 #### [facility] [address] [place] [address] Eosinophils/100 WBC (Bld) 0.1 % Normal 0.0-7.0 [facility] Comment on above: Performed By: #### 5 7021-8 #### [facility] [address] [place] [address] Erythrocyte distribution width (RBC) [Entitic vol] 17.1 % High 11.0-14.8 [facility] Comment on above: Performed By: #### 5 7021-8 #### [facility] [address] [place] [address] Hematocrit (Bld) [Volume fraction] 36.3 % Normal 35.0-45.0 [facility] Comment on above: Performed By: #### 5 7021-8 #### [facility] [address] [place] [address] Hemoglobin (Bld) [Mass/Vol] 11.8 g/dL Low 12.0-16.0 [facility] Comment on above: Performed By: #### 5 7021-8 #### [address] [address] Lymphocytes (Bld) [#/Vol] 1.40 thou/mcL Normal 1.00-4.80 [facility] Comment on above: Performed By: #### 5 7021-8 #### [address] [address] Lymphocytes/100 WBC (Bld) 7.1 % Low 22.0-44.0 [facility] Comment on above: Performed By: #### 5 7021-8 #### [address] [address] MCH (RBC) [Entitic mass] 33.0 Picograms Normal 27.0-34.0 [facility] Comment on above: Performed By: #### 5 7021-8 #### [facility] [address] [place] [address] MCHC (RBC) [Mass/Vol] 32.5 g/dL Normal 32.0-36.0 [facility] Comment on above: Performed By: #### 5 7021-8 #### [facility] [address] [place] [address] MCV (RBC) [Entitic vol] 101.7 fL High 80.0-97.0 [facility] Comment on above: Performed By: #### 5 7021-8 #### [facility] [address] [place] [address] Monocytes (Bld) [#/Vol] 0.50 thou/mcL Normal 0.00-0.90 [facility] Comment on above: Performed By: #### 5 7021-8 #### [facility] [address] [place] [address] Monocytes/100 WBC (Bld) 2.7 % Normal 0.0-12.0 [facility] Comment on above: Performed By: #### 5 7021-8 #### [facility] [address] [place] [address] Neutrophils (Bld) [#/Vol] 18.10 thou/mcL High 1.80-7.70 [facility] Comment on above: Performed By: #### 5 7021-8 #### [facility] [address] [place] [address] Neutrophils/100 WBC (Bld) 89.2 % High 40.0-70.0 [facility] Comment on above: Performed By: #### 5 7021-8 #### [facility] [address] [place] [address] Platelet mean volume (Bld) [Entitic vol] 8.2 fL Normal 6.2-12.1 [facility] Comment on above: Performed By: #### 5 7021-8 #### [facility] [address] [place] [address] Platelets (Bld) [#/Vol] 355 thou/mcL Normal 142-424 [facility] Comment on above: Performed By: #### 5 7021-8 #### [facility] [address] [place] [address] RBC (Bld) [#/Vol] 3.57 million/mcL Low 3.80-5.10 [facility] Comment on above: Performed By: #### 5 7021-8 #### [facility] [address] [place] [address] WBC (Bld) [#/Vol] 20.3 thou/mcL High 4.6-10.2 [facility] Comment on above: Performed By: #### 5 7021-8 #### [facility] [address] [place] [address] Ammoniaon 09-27-2020 Ammonia (P) [Mass/Vol] 21 umol/L Normal 9-30 [facility] Comment on above: Order Comment: Items in this order include: Ammonia Testing Performed By: [facility] [address] [place] [address]. [place] [address] Dr. Donnie Jean, Color Printer Operator Items in this order include: Ammonia Testing Performed By: [facility] [address] [place] [address]. [place] [address] Dr. Donnie Jean, Color Printer Operator Performed By: #### C 709 #### [facility]. [address] [place] [address] [address] [place] [address] B12/Folateon 09-27-2020 Cobalamin (Vitamin B12) [Mass/Vol] 683 pg/mL Normal 239-931 [facility] Comment on above: Order Comment: Items in this order include: Culture, Urine Testing Performed By: [facility] [address] [place] [address]. [place] [address] Dr. Donnie Jean, Color Printer Operator Result Comment: Plea se note: Over the counter high dose supplements of Biotin that are 20 to 300 times greater than the adequate daily intake of 30 mcg/day for adults may cause a bias of 10% or more to be observed in the measured Vitamin B-12 concentrations. Performed By: #### C 734 #### [facility] [address] [place] [address] [address] [place] [address] Folate 9.26 ng/mL Normal 2.80-20.00 [facility] Comment on above: Order Comment: Items in this order include: Culture, Urine Testing Performed By: [facility] [address] [place] [address] [address] [address] Donnie Jean, Color Printer Operator Result Comment: Plea se note: Over the counter high dose supplements of Biotin that are 20 to 300 times greater than the adequate daily intake of 30 mcg/day for adults may cause a bias of 10% or more to be observed in the measured Folate concentrations. Performed By: #### C 734 #### [facility] [address] [place] [address] [address] [place] [address] CBC with differentialon 09-18 Erythrocyte distribution width (RBC) [Ratio] 15.4 % Normal 11.5-15.5 [facility] Comment on above: Order Comment: Items in this order include: Culture, Urine Testing Performed By: [facility] [address] [place], [place] [id number] Dr. Donnie Jean, Color Printer Operator Performed By: #### C 734 #### [facility], [facility]. [address] [place] [address] [address] [place] [address] Hematocrit (Bld) [Volume fraction] 39.8 % Normal 37.0-47.0 [facility] Comment on above: Order Comment: Items in this order include: Culture, Urine Testing Performed By: [facility] [address] [place] [address] [address] [address] Donnie Jean, Color Printer Operator Performed By: #### C 734 #### [facility] [address] [place] [address] [address] [place] [address] Hemoglobin (Bld) [Mass/Vol] 12.3 g/dL Normal 11.5-15.5 [facility] Comment on above: Order Comment: Items in this order include: Culture, Urine Testing Performed By: [facility] [address] [place] [address]. [place] [address] Dr. Donnie Jean, Color Printer Operator Performed By: #### C 734 #### [facility] [address] [place] [address] [address] [place] [address] MCH (RBC) [Entitic mass] 34.2 pg High 27.0-31.0 [facility] Comment on above: Order Comment: Items in this order include: Culture, Urine Testing Performed By: [facility] [address] [place] [address]. [place] [address] Dr. Donnie Jean, Color Printer Operator Performed By: #### C 734 #### [facility] [address] [place] [address] MCHC (RBC) [Mass/Vol] 30.9 g/dL Low 32.0-36.0 [facility] Comment on above: Order Comment: Items in this order include: Culture, Urine Testing Performed By: [facility] [address] [place] [address] Dr. Donnie Jean, Color Printer Operator Performed By: #### C 734 #### [facility] [address] [place] [address] MCV (RBC) [Entitic vol] 110.6 fL High 78.0-100.0 [facility] Comment on above: Order Comment: Items in this order include: Culture, Urine Testing Performed By: [facility] [address] [place] [address] Dr. Donnie Jean, Color Printer Operator Performed By: #### C 734 #### [facility] [address] [place] [address] Platelet mean volume (Bld) [Entitic vol] 10.2 fL Normal 8.9-12.6 [facility] Comment on above: Order Comment: Items in this order include: Culture, Urine Testing Performed By: [facility] [address] [place] [address] Dr. Donnie Jean, Color Printer Operator Performed By: #### C 734 #### [facility] [address] [place] [address] Platelets (Bld) [#/Vol] 423 K CUMM High 130-400 [facility] Comment on above: Order Comment: Items in this order include: Culture, Urine Testing Performed By: [facility] [address] [place] [address] Dr. Donnie Jean, Color Printer Operator Performed By: #### C 734 #### [facility] [address] [place] [address] RBC (Bld) [#/Vol] 3.60 M CUMM Low 3.80-5.10 [facility] Comment on above: Order Comment: Items in this order include: Culture, Urine Testing Performed By: [facility] [address] [place] [address]. [place] [id number] Dr. Donnie Jean, Color Printer Operator Performed By: #### C 734 #### [facility] [address] [place] [address] [address] [place] [address] WBC (Bld) [#/Vol] 28.2 K CUMM Critically high 3.8-10.6 [facility] Comment on above: Order Comment: Items in this order include: Culture, Urine Testing Performed By: [facility] [address] [place], [place] [id number] Dr. Donnie Jean, Color Printer Operator Performed By: #### C 734 #### [facility], [facility]. [address] [place] [address] [address] [place] [address] Comprehensive Metabolic Pane [facility] 09-27-2020 Albumin [Mass/Vol] 4.4 g/dL Normal 3.5-5.0 [facility] Comment on above: Order Comment: Items in this order include: Comprehensive Metabolic Panel, CBC with differential, TSH w/ reflex to FT4, B12/Folate, , , , Manual Differential if Indicated, Slide Scan, MicroscopeTesting Performed By: [facility] [address] [place] [address]. [place] [id number] Dr. Donnie Jean, Color Printer Operator Performed By: #### C 709 #### [facility] [address] [place] [address] [address] [place] [address] Alk Phos 68 U/L Normal 23-159 [facility] Comment on above: Order Comment: Items in this order include: Comprehensive Metabolic Panel, CBC with differential, TSH w/ reflex to FT4, B12/Folate, , , , Manual Differential if Indicated, Slide Scan, MicroscopeTesting Performed By: [facility] [address] [place] [address]. [place] [address] Dr. Donnie Jean, Color Printer Operator Performed By: #### C 709 #### [facility], [facility]. [address] [place] [address] ALT [Catalytic activity/Vol] 15 U/L Normal 0-38 [facility] Comment on above: Order Comment: Items in this order include: Comprehensive Metabolic Panel, CBC with differential, TSH w/ reflex to FT4, B12/Folate, , , , Manual Differential if Indicated, Slide Scan, MicroscopeTesting Performed By: [facility] [address] [place] [address]. [place] [address] Dr. Donnie Jean, Color Printer Operator Performed By: #### C 709 #### [facility], [facility]. [address] [place] [address] [address] [place] [address] AST [Catalytic activity/Vol] 21 U/L Normal 11-43 [facility] Comment on above: Order Comment: Items in this order include: Comprehensive Metabolic Panel, CBC with differential, TSH w/ reflex to FT4, B12/Folate, , , , Manual Differential if Indicated, Slide Scan, MicroscopeTesting Performed By: [facility] [address] [place] [address]. [place] [address] Dr. Donnie Jean, Color Printer Operator Performed By: #### C 709 #### [facility], [facility]. [address] [place] [address] [address] [place] [address] Bilirubin [Mass/Vol] 0.5 mg/dL Normal 0.2-1.3 [facility] Comment on above: Order Comment: Items in this order include: Comprehensive Metabolic Panel, CBC with differential, TSH w/ reflex to FT4, B12/Folate, , , , Manual Differential if Indicated, Slide Scan, MicroscopeTesting Performed By: [facility] [address] [place] [address]. [place] [address] Dr. Donnie Jean, Color Printer Operator Performed By: #### C 709 #### [facility], [facility]. [address] [place] [address] [address] [place] [address] Calcium [Mass/Vol] 9.7 mg/dL Normal 8.5-10.5 [facility] Comment on above: Order Comment: Items in this order include: Comprehensive Metabolic Panel, CBC with differential, TSH w/ reflex to FT4, B12/Folate, , , , Manual Differential if Indicated, Slide Scan, MicroscopeTesting Performed By: [facility] [address] [place] [address]. [place] [address] Dr. Donnie Jean, Color Printer Operator Performed By: #### C 709 #### [facility] [address] [place] [address] [address] [place] [address] Chloride [Moles/Vol] 111 mmol/L High 98-107 [facility] Comment on above: Order Comment: Items in this order include: Comprehensive Metabolic Panel, CBC with differential, TSH w/ reflex to FT4, B12/Folate, , , , Manual Differential if Indicated, Slide Scan, MicroscopeTesting Performed By: [facility] [address] [place] [address] Dr. Donnie Jean, Color Printer Operator Performed By: #### C 709 #### [facility] [address] [place] [address] [address] [place] [address] CO2 [Moles/Vol] 16.0 mmol/L Low 21.0-32.0 [facility] Comment on above: Order Comment: Items in this order include: Comprehensive Metabolic Panel, CBC with differential, TSH w/ reflex to FT4, B12/Folate, , , , Manual Differential if Indicated, Slide Scan, MicroscopeTesting Performed By: [facility] [address] [place] [address]. [place] [address] Dr. Donnie Jean, Color Printer Operator Performed By: #### C 709 #### [facility] [address] [place] [address] [address] [place] [address] Creatinine [Mass/Vol] 1.6 mg/dL High 0.1-1.2 [facility] Comment on above: Order Comment: Items in this order include: Comprehensive Metabolic Panel, CBC with differential, TSH w/ reflex to FT4, B12/Folate, , , , Manual Differential if Indicated, Slide Scan, MicroscopeTesting Performed By: [facility] [address] [place] [address]. [place] [id number] Dr. Donnie Jean, Color Printer Operator Performed By: #### C 709 #### [facility], [facility]. [address] [place] [address] [address] [place] [address] GFR/1.73 sq M.predicted MDRD (S/P/Bld) [Vol rate/Area] 31 mL/min per 1.73 Low >60 [facility] Comment on above: Order Comment: Items in this order include: Comprehensive Metabolic Panel, CBC with differential, TSH w/ reflex to FT4, B12/Folate, , , , Manual Differential if Indicated, Slide Scan, MicroscopeTesting Performed By: [facility] [address] [place] [address] Dr. Donnie Jean, Color Printer Operator Result Comment: The GFR estimate is not adjusted for race. If the patient's race is -[place], the GFR estimate must be multiplied by a factor of 1.21. Performed By: #### Jany 709 #### [facility], [facility]. [address] [place] [address] [address] [place] [address] Glucose [Mass/Vol] 112 mg/dL High 74-[address] [facility] Comment on above: Order Comment: Items in this order include: Comprehensive Metabolic Panel, CBC with differential, TSH w/ reflex to FT4, B12/Folate, , , , Manual Differential if Indicated, Slide Scan, MicroscopeTesting Performed By: [facility] [address] [place] [address] [address] [address] Donnie Jean, Color Printer Operator Performed By: #### C 709 #### [facility], [facility]. [address] [place] [address] [place] [address] Potassium [Moles/Vol] 5.4 mmol/L High 3.5-5.3 [facility] Comment on above: Order Comment: Items in this order include: Comprehensive Metabolic Panel, CBC with differential, TSH w/ reflex to FT4, B12/Folate, , , , Manual Differential if Indicated, Slide Scan, MicroscopeTesting Performed By: [facility] [address] [place] [address] [address] [address] Donnie Jean, Color Printer Operator Performed By: #### C 709 #### [facility] [address] [facility] [address] [place] [address] Protein [Mass/Vol] 7.4 g/dL Normal 6.3-8.4 [facility] Comment on above: Order Comment: Items in this order include: Comprehensive Metabolic Panel, CBC with differential, TSH w/ reflex to FT4, B12/Folate, , , , Manual Differential if Indicated, Slide Scan, MicroscopeTesting Performed By: [facility] [address] [place] [address]. [place] [address] Dr. Donnie Jean, Color Printer Operator Performed By: #### C 709 #### [facility], [facility]. [address] [place] [address] [place] [address] Sodium [Moles/Vol] 140 mmol/L Normal 135-145 [facility] Comment on above: Order Comment: Items in this order include: Comprehensive Metabolic Panel, CBC with differential, TSH w/ reflex to FT4, B12/Folate, , , , Manual Differential if Indicated, Slide Scan, MicroscopeTesting Performed By: [facility] [address] [place] [address]. [place] [address] Dr. Donnie Jean, Color Printer Operator Performed By: #### C 709 #### [facility], [facility]. [address] [place] [address] [place] [address] Urea nitrogen [Mass/Vol] 40 mg/dL High 6-22 [facility] Comment on above: Order Comment: Items in this order include: Comprehensive Metabolic Panel, CBC with differential, TSH w/ reflex to FT4, B12/Folate, , , , Manual Differential if Indicated, Slide Scan, MicroscopeTesting Performed By: [facility] [address] [place] [address]. [place] [address] Dr. Donnie Jean, Color Printer Operator Performed By: #### C 709 #### [facility], [facility]. [address] [place] [address] [address] [place] [address] Culture, Urineon 09-27-2020 RPT Microbiology results Normal [facility] Comment on above: Order Comment: Items in this order include: Culture, Urine Testing Performed By: [facility] [place] [address] Dr. Donnie Jean, Color Printer Operator Result Comment: Kaylee l Result: No growth at 24 hours. Performed By: #### C 734 #### [facility] [address] [place] [address] Manual Differential if Indic atedon 09-27-2020 Anisocytosis Ql (Bld) SLIGHT Normal [facility] Comment on above: Order Comment: Items in this order include: Culture, Urine Testing Performed By: [facility] [address] [place] [address]. [place] [address] Dr. Donnie Jean, Color Printer Operator Performed By: #### C 734 #### [facility] [address] [place] [address] Rd [address] [place] [address] Carls[place] Cells SLIGHT Normal [facility] Comment on above: Order Comment: Items in this order include: Culture, Urine Testing Performed By: [facility] [address] [place] [address]. [place] [address] Dr. Donnie Jean, Color Printer Operator Performed By: #### C 734 #### [facility] [address] [place] [address] [address] [place] [address] Lymphocytes 2 % Low 20-51 [facility] Comment on above: Order Comment: Items in this order include: Culture, Urine Testing Performed By: [facility] [address] [place] [address]. [place] [address] Dr. Donnie Jean, Color Printer Operator Performed By: #### C 734 #### [facility] [address] [place] [address] Macrocytes Ql (Bld) SLIGHT Normal [facility] Comment on above: Order Comment: Items in this order include: Culture, Urine Testing Performed By: [facility] [place] [address] Dr. Donnie Jean, Color Printer Operator Performed By: #### C 734 #### [facility] [address] [place] [address] Metamyelocytes 1 % Normal <2 [facility] Comment on above: Order Comment: Items in this order include: Culture, Urine Testing Performed By: [facility] [address] [place] [place] [address] Dr. Donnie Jean, Color Printer Operator Performed By: #### C 734 #### [facility] [address] [place] [address] Monocytes 2 % Normal 2-9 [facility] Comment on above: Order Comment: Items in this order include: Culture, Urine Testing Performed By: [facility] [address] [place] [address] Dr. Donnie Jean, Color Printer Operator Performed By: #### C 734 #### [facility] [address] [place] [address] Neutrophils 95 % High 42-75 [facility] Comment on above: Order Comment: Items in this order include: Culture, Urine Testing Performed By: [facility] [address] [place] [place] [address] Dr. Donnie Jean, Color Printer Operator Performed By: #### C 734 #### [facility] [address] [place] [address] Ovalocytes SLIGHT Normal [facility] Comment on above: Order Comment: Items in this order include: Culture, Urine Testing Performed By: [facility] [address] [place] [address] Dr. Donnie Jean, Color Printer Operator Performed By: #### C 734 #### [facility] [address] [place] [address] Poikilocytosis MODERATE Normal [facility] Comment on above: Order Comment: Items in this order include: Culture, Urine Testing Performed By: [facility] [address] [facility] [address] [place] [address] Dr. Donnie Jean, Color Printer Operator Performed By: #### C 734 #### [facility] [address] [facility] [address] [place] [address] Polychromasia SLIGHT Normal [facility] Comment on above: Order Comment: Items in this order include: Culture, Urine Testing Performed By: [facility] [facility] [place] [address] Dr. Donnie Jean, Color Printer Operator Performed By: #### C 734 #### [facility] [address] [place] [address] [place] [address] Target Cells SLIGHT Normal [facility] Comment on above: Order Comment: Items in this order include: Culture, Urine Testing Performed By: [facility] [address] [place] [address]. [place] [address] Dr. Donnie Jean, Color Printer Operator Performed By: #### C 734 #### [facility] [address] [place] [address] [address] [place] [address] Slide Scan, Microscopeon Platelets (Bld) [#/Vol] RESULTS MAY BE INACCURATE DUE TO PLATELET CLUMPING; SUGGEST REDRAW PLT COUNT IN BLUE-TOP (CITRATED TUBE). ALL OTHER CBC PARAMETERS ARE UNAFFECTED BY THIS IN VITRO PHENOMENON. Normal [facility] Comment on above: Order Comment: Items in this order include: Culture, Urine Testing Performed By: [facility] [address] [place] [address]. [place] [address] Dr. Donnie Jean, Color Printer Operator Performed By: #### C 734 #### [facility] [address] [place] [address] [place] [address] TSH w/ reflex to FT4on 09-27 TSH Qn 4.30 MIU/mL Normal 0.50-6.00 [facility] Comment on above: Order Comment: Items in this order include: Culture, Urine Testing Performed By: [facility] [address] [place] [address]. [place] [address] Dr. Donnie Jean, Color Printer Operator Performed By: #### C 734 #### [facility] [address] [place] [address] [place] [address] CBC with differentialon Erythrocyte distribution width (RBC) [Ratio] 15.4 % Normal 11.5-15.5 [facility] Comment on above: Order Comment: Items in this order include: Comprehensive Metabolic Panel, Lipid Panel, Uric Acid , Vit D 25 [place] (Total), CBC with differential, HgbA1C, , , , Slide Scan if Indicated, Manual Differential if IndicatedTesting Performed By: [facility] [address] [place], [place] [id number] Dr. Donnie Jean, Color Printer Operator Performed By: #### C 709 #### [facility], [facility]. [address] [place] [address] [place] [address] Hematocrit (Bld) [Volume fraction] 37.9 % Normal 37.0-47.0 [facility] Comment on above: Order Comment: Items in this order include: Comprehensive Metabolic Panel, Lipid Panel, Uric Acid , Vit D 25 [place] (Total), CBC with differential, HgbA1C, , , , Slide Scan if Indicated, Manual Differential if IndicatedTesting Performed By: [facility] [address] [place] [address] [address] [address] Donnie Jean, Color Printer Operator Performed By: #### C 709 #### [facility], [facility]. [address] [place] [address] [place] [address] Hemoglobin (Bld) [Mass/Vol] 12.1 g/dL Normal 11.5-15.5 [facility] Comment on above: Order Comment: Items in this order include: Comprehensive Metabolic Panel, Lipid Panel, Uric Acid , Vit D 25 [place] (Total), CBC with differential, HgbA1C, , , , Slide Scan if Indicated, Manual Differential if IndicatedTesting Performed By: [facility] [address] [place] [address] [address] [address] Donnie Jean, Color Printer Operator Performed By: #### C 709 #### [facility], [facility]. [address] [place] [address] [place] [address] MCH (RBC) [Entitic mass] 35.7 pg High 27.0-31.0 [facility] Comment on above: Order Comment: Items in this order include: Comprehensive Metabolic Panel, Lipid Panel, Uric Acid , Vit D 25 [place] (Total), CBC with differential, HgbA1C, , , , Slide Scan if Indicated, Manual Differential if IndicatedTesting Performed By: [facility] [address] [place] [address]. [place] [address] Dr. Donnie Jean, Color Printer Operator Performed By: #### C 709 #### [facility] [address] [place] [address] [place] [address] MCHC (RBC) [Mass/Vol] 31.9 g/dL Low 32.0-36.0 [facility] Comment on above: Order Comment: Items in this order include: Comprehensive Metabolic Panel, Lipid Panel, Uric Acid , Vit D 25 [place] (Total), CBC with differential, HgbA1C, , , , Slide Scan if Indicated, Manual Differential if IndicatedTesting Performed By: [facility] [address] [place] [address] [address] [address] Donnie Jean, Color Printer Operator Performed By: #### C 709 #### [facility] [address] [place] [address] [place] [address] MCV (RBC) [Entitic vol] 111.8 fL High 78.0-100.0 [facility] Comment on above: Order Comment: Items in this order include: Comprehensive Metabolic Panel, Lipid Panel, Uric Acid , Vit D 25 [place] (Total), CBC with differential, HgbA1C, , , , Slide Scan if Indicated, Manual Differential if IndicatedTesting Performed By: [facility] [address] [place] [address] [address] [address] Donnie Jean, Color Printer Operator Performed By: #### C 709 #### [facility]. [address] [place] [address] [place] [address] Platelet mean volume (Bld) [Entitic vol] 10.5 fL Normal 8.9-12.6 [facility] Comment on above: Order Comment: Items in this order include: Comprehensive Metabolic Panel, Lipid Panel, Uric Acid , Vit D 25 [place] (Total), CBC with differential, HgbA1C, , , , Slide Scan if Indicated, Manual Differential if IndicatedTesting Performed By: [facility] [address] [place] [address]. [place] [address] Dr. Donnie Jean, Color Printer Operator Performed By: #### C 709 #### [facility] [address] [place] [address] [address] [place] [address] Platelets (Bld) [#/Vol] 356 K CUMM Normal 130-400 [facility] Comment on above: Order Comment: Items in this order include: Comprehensive Metabolic Panel, Lipid Panel, Uric Acid , Vit D 25 [place] (Total), CBC with differential, HgbA1C, , , , Slide Scan if Indicated, Manual Differential if IndicatedTesting Performed By: [facility] [address] [place] [address]. [place] [address] Dr. Donnie Jean, Color Printer Operator Performed By: #### C 709 #### [facility], [facility]. [address] [place] [address] [address] [place] [address] RBC (Bld) [#/Vol] 3.39 M CUMM Low 3.80-5.10 [facility] Comment on above: Order Comment: Items in this order include: Comprehensive Metabolic Panel, Lipid Panel, Uric Acid , Vit D 25 [place] (Total), CBC with differential, HgbA1C, , , , Slide Scan if Indicated, Manual Differential if IndicatedTesting Performed By: [facility] [address] [place] [address]. [place] [address] Dr. Donnie Jean, Color Printer Operator Performed By: #### C 709 #### [facility] [address] [place] [address] [address] [place] [address] WBC (Bld) [#/Vol] 18.3 K CUMM High 3.8-10.6 [facility] Comment on above: Order Comment: Items in this order include: Comprehensive Metabolic Panel, Lipid Panel, Uric Acid , Vit D 25 [place] (Total), CBC with differential, HgbA1C, , , , Slide Scan if Indicated, Manual Differential if IndicatedTesting Performed By: [facility] [address] [place] [address]. [place] [address] Dr. Donnie Jean, Color Printer Operator Performed By: #### C 709 #### [facility], [facility]. [address] [place] [address] [address] [place] [address] Comprehensive Metabolic Pane donnie 06-21-2020 Albumin [Mass/Vol] 4.4 g/dL Normal 3.5-5.[address] [facility] Comment on above: Order Comment: Items in this order include: Comprehensive Metabolic Panel, Lipid Panel, Uric Acid , Vit D 25 [place] (Total), CBC with differential, HgbA1C, , , , Slide Scan if Indicated, Manual Differential if IndicatedTesting Performed By: [facility] [address] [place], [place] [id number] Dr. Donnie Jean, Lab DirectorItems in this order include: Comprehensive Metabolic Panel, Lipid Panel, Uric Acid , Vit D 25 [place] (Total), CBC with differential, HgbA1C, , , , Manual Differential if Indicated Performed By: #### C 709 #### [facility]. [address] [place] [address] [address] [place] [address] Alk Phos 66 U/L Normal 23-159 [facility] Comment on above: Order Comment: Items in this order include: Comprehensive Metabolic Panel, Lipid Panel, Uric Acid , Vit D 25 [place] (Total), CBC with differential, HgbA1C, , , , Slide Scan if Indicated, Manual Differential if IndicatedTesting Performed By: [facility] [address] [place] [address]. [place] [address] Dr. Donnie Jean, Lab DirectorItems in this order include: Comprehensive Metabolic Panel, Lipid Panel, Uric Acid , Vit D 25 [place] (Total), CBC with differential, HgbA1C, , , , Manual Differential if Indicated Performed By: #### C 709 #### [facility]. [address] [place] [address] [address] [place] [address] ALT [Catalytic activity/Vol] 9 U/L Normal 0-38 [facility] Comment on above: Order Comment: Items in this order include: Comprehensive Metabolic Panel, Lipid Panel, Uric Acid , Vit D 25 [place] (Total), CBC with differential, HgbA1C, , , , Slide Scan if Indicated, Manual Differential if IndicatedTesting Performed By: [facility] [address] [place], [place] [id number] Dr. Donnie Jean, Lab DirectorItems in this order include: Comprehensive Metabolic Panel, Lipid Panel, Uric Acid , Vit D 25 [place] (Total), CBC with differential, HgbA1C, , , , Manual Differential if Indicated Performed By: #### C 709 #### [facility] [address] [place] [address] [address] [place] [address] AST [Catalytic activity/Vol] 17 U/L Normal 11-43 [facility] Comment on above: Order Comment: Items in this order include: Comprehensive Metabolic Panel, Lipid Panel, Uric Acid , Vit D 25 [place] (Total), CBC with differential, HgbA1C, , , , Slide Scan if Indicated, Manual Differential if IndicatedTesting Performed By: [facility] [address] [place], [place] [id number] Dr. Donnie Jean, Lab DirectorItems in this order include: Comprehensive Metabolic Panel, Lipid Panel, Uric Acid , Vit D 25 [place] (Total), CBC with differential, HgbA1C, , , , Manual Differential if Indicated Performed By: #### C 709 #### [facility]. [address] [place] [address] [address] [place] [address] Bilirubin [Mass/Vol] 0.3 mg/dL Normal 0.2-1.3 [facility] Comment on above: Order Comment: Items in this order include: Comprehensive Metabolic Panel, Lipid Panel, Uric Acid , Vit D 25 [place] (Total), CBC with differential, HgbA1C, , , , Slide Scan if Indicated, Manual Differential if IndicatedTesting Performed By: [facility] [address] [place] [address] [address] [address] Donnie Jean, Lab DirectorItems in this order include: Comprehensive Metabolic Panel, Lipid Panel, Uric Acid , Vit D 25 [place] (Total), CBC with differential, HgbA1C, , , , Manual Differential if Indicated Performed By: #### C 709 #### [facility] [address] [place] [address] [address] [place] [address] Calcium [Mass/Vol] 10.1 mg/dL Normal 8.5-10.[address] [facility] Comment on above: Order Comment: Items in this order include: Comprehensive Metabolic Panel, Lipid Panel, Uric Acid , Vit D 25 [place] (Total), CBC with differential, HgbA1C, , , , Slide Scan if Indicated, Manual Differential if IndicatedTesting Performed By: [facility] [address] [place] [address]. [place] [address] Dr. Donnie Jean, Lab DirectorItems in this order include: Comprehensive Metabolic Panel, Lipid Panel, Uric Acid , Vit D 25 [place] (Total), CBC with differential, HgbA1C, , , , Manual Differential if Indicated Performed By: #### C 709 #### [facility], [facility]. [address] [place] [address] [address] [place] [address] Chloride [Moles/Vol] 106 mmol/L Normal 98-107 [facility] Comment on above: Order Comment: Items in this order include: Comprehensive Metabolic Panel, Lipid Panel, Uric Acid , Vit D 25 [place] (Total), CBC with differential, HgbA1C, , , , Slide Scan if Indicated, Manual Differential if IndicatedTesting Performed By: [facility] [address] [place] [address] [address] Donnie Jean, Lab DirectorItems in this order include: Comprehensive Metabolic Panel, Lipid Panel, Uric Acid , Vit D 25 [place] (Total), CBC with differential, HgbA1C, , , , Manual Differential if Indicated Performed By: #### C 709 #### [facility] [address] [place] [address] [address] [place] [address] CO2 [Moles/Vol] 17.0 mmol/L Low 21.0-32.0 [facility] Comment on above: Order Comment: Items in this order include: Comprehensive Metabolic Panel, Lipid Panel, Uric Acid , Vit D 25 [place] (Total), CBC with differential, HgbA1C, , , , Slide Scan if Indicated, Manual Differential if IndicatedTesting Performed By: [facility] [address] [place], [place] [address], [place] [address] Dr. Donnie Jean, Lab DirectorItems in this order include: Comprehensive Metabolic Panel, Lipid Panel, Uric Acid , Vit D 25 [place] (Total), CBC with differential, HgbA1C, , , , Manual Differential if Indicated Performed By: #### C 709 #### [facility], [facility]. [address] [place] [address] [address] [place] [address] Creatinine [Mass/Vol] 1.5 mg/dL High 0.1-1.2 [facility] Comment on above: Order Comment: Items in this order include: Comprehensive Metabolic Panel, Lipid Panel, Uric Acid , Vit D 25 [place] (Total), CBC with differential, HgbA1C, , , , Slide Scan if Indicated, Manual Differential if IndicatedTesting Performed By: [facility] [address] [place] [address] [address] Donnie Jean, Lab DirectorItems in this order include: Comprehensive Metabolic Panel, Lipid Panel, Uric Acid , Vit D 25 [place] (Total), CBC with differential, HgbA1C, , , , Manual Differential if Indicated Performed By: #### C 709 #### [facility], [facility]. [address] [place] [address] [address] [place] [address] GFR/1.73 sq M.predicted MDRD (S/P/Bld) [Vol rate/Area] 33 mL/min per 1.73 Low >60 [facility] Comment on above: Order Comment: Items in this order include: Comprehensive Metabolic Panel, Lipid Panel, Uric Acid , Vit D 25 [place] (Total), CBC with differential, HgbA1C, , , , Slide Scan if Indicated, Manual Differential if IndicatedTesting Performed By: [facility] [address] [place] [address] [address] [address] Donnie Jean, Lab DirectorItems in this order include: Comprehensive Metabolic Panel, Lipid Panel, Uric Acid , Vit D 25 [place] (Total), CBC with differential, HgbA1C, , , , Manual Differential if Indicated Result Comment: The GFR estimate is not adjusted for race. If the patient's race is -[place], the GFR estimate must be multiplied by a factor of 1.21. Performed By: #### C 709 #### [facility] [address] [place] [address] [address] [place] [address] Glucose [Mass/Vol] 108 mg/dL High 74-[address] [facility] Comment on above: Order Comment: Items in this order include: Comprehensive Metabolic Panel, Lipid Panel, Uric Acid , Vit D 25 [place] (Total), CBC with differential, HgbA1C, , , , Slide Scan if Indicated, Manual Differential if IndicatedTesting Performed By: [facility] [address] [place] [address]. [place] [address] Dr. Donnie Jean, Lab DirectorItems in this order include: Comprehensive Metabolic Panel, Lipid Panel, Uric Acid , Vit D 25 [place] (Total), CBC with differential, HgbA1C, , , , Manual Differential if Indicated Performed By: #### C 709 #### [facility] [address] [place] [address] [address] [place] [address] Potassium [Moles/Vol] 4.7 mmol/L Normal 3.5-5.3 [facility] Comment on above: Order Comment: Items in this order include: Comprehensive Metabolic Panel, Lipid Panel, Uric Acid , Vit D 25 [place] (Total), CBC with differential, HgbA1C, , , , Slide Scan if Indicated, Manual Differential if IndicatedTesting Performed By: [facility] [address] [place] [address]. [place] [address] Dr. Donnie Jean, Lab DirectorItems in this order include: Comprehensive Metabolic Panel, Lipid Panel, Uric Acid , Vit D 25 [place] (Total), CBC with differential, HgbA1C, , , , Manual Differential if Indicated Performed By: #### C 709 #### [facility] [address] [place] [address] [address] [place] [address] Protein [Mass/Vol] 7.4 g/dL Normal 6.3-8.[address] [facility] Comment on above: Order Comment: Items in this order include: Comprehensive Metabolic Panel, Lipid Panel, Uric Acid , Vit D 25 [place] (Total), CBC with differential, HgbA1C, , , , Slide Scan if Indicated, Manual Differential if IndicatedTesting Performed By: [facility] [address] [place] [address]. [place] [address] Dr. Donnie Jean, Lab DirectorItems in this order include: Comprehensive Metabolic Panel, Lipid Panel, Uric Acid , Vit D 25 [place] (Total), CBC with differential, HgbA1C, , , , Manual Differential if Indicated Performed By: #### C 709 #### [facility] [address] [place] [address] [place] [address] Sodium [Moles/Vol] 139 mmol/L Normal 135-[address] [facility] Comment on above: Order Comment: Items in this order include: Comprehensive Metabolic Panel, Lipid Panel, Uric Acid , Vit D 25 [place] (Total), CBC with differential, HgbA1C, , , , Slide Scan if Indicated, Manual Differential if IndicatedTesting Performed By: [facility] [address] [place] [address]. [place] [address] Dr. Donnie Jean, Lab DirectorItems in this order include: Comprehensive Metabolic Panel, Lipid Panel, Uric Acid , Vit D 25 [place] (Total), CBC with differential, HgbA1C, , , , Manual Differential if Indicated Performed By: #### C 709 #### [facility] [address] [place] [address] [address] [place] [address] Urea nitrogen [Mass/Vol] 36 mg/dL High 6-22 [facility] Comment on above: Order Comment: Items in this order include: Comprehensive Metabolic Panel, Lipid Panel, Uric Acid , Vit D 25 [place] (Total), CBC with differential, HgbA1C, , , , Slide Scan if Indicated, Manual Differential if IndicatedTesting Performed By: [facility] [address] [place] [address]. [place] [address] Dr. Donnie Jean, Lab DirectorItems in this order include: Comprehensive Metabolic Panel, Lipid Panel, Uric Acid , Vit D 25 [place] (Total), CBC with differential, HgbA1C, , , , Manual Differential if Indicated Performed By: #### C 709 #### [facility] [address] [place] [address] [place] [address] [id number] 06-21-2020 HbA1c (Bld) [Mass fraction] 6.3 % High <5.7 [facility] Comment on above: Order Comment: Items in this order include: Comprehensive Metabolic Panel, Lipid Panel, Uric Acid , Vit D 25 [place] (Total), CBC with differential, HgbA1C, , , , Slide Scan if Indicated, Manual Differential if IndicatedTesting Performed By: [facility] [facility] [place] [address] Dr. Donnie Jean, Lab DirectorItems in this order include: Comprehensive Metabolic Panel, Lipid Panel, Uric Acid , Vit D 25 [place] (Total), CBC with differential, HgbA1C, , , , Manual Differential if Indicated Result Comment: Refe rence Interval: Normal: below 5.7%. Prediabetes: 5.7% to 6.4%. Diabetes: 6.5% or above. Performed By: #### C 709 #### [facility] [address] [facility] [place] [address] Lipid Panelon 06-21-2020 Cholesterol [Mass/Vol] 124 mg/dL Normal <200 [facility] Comment on above: Performed By: #### C 709 #### [facility] [address] [facility] [place] [address] Cholesterol in HDL [Mass/Vol] 34 mg/dL Low >50 [facility] Comment on above: Performed By: #### C 709 #### [facility] [address] [facility] [place] [address] Cholesterol in LDL [Mass/Vol] 49 mg/dL Normal <130 [facility] Comment on above: Performed By: #### C 709 #### [facility] [address] [facility] [address] [place] [address] Cholesterol.total/C holesterol in HDL [Mass ratio] 3.6 {ratio} Normal <4.0 [facility] Comment on above: Performed By: #### C 709 #### [facility] [address] [facility] [address] [place] [address] Non-HDL Chol 90 Normal LDL Goal + 30 [facility] Comment on above: Result Comment: LDL and Non-HDL goal dependent upon individual risk Performed By: #### C 709 #### [facility] [address] [facility] [place] [address] Triglyceride [Mass/Vol] 206 mg/dL High <150 [facility] Comment on above: Performed By: #### C 709 #### [facility] [address] [facility] [place] [address] VLDL-Calc 41 mg/dl High <30 [facility] Comment on above: Performed By: #### C 709 #### [facility] [address] [place] [address] [place] [address] Manual Differential if Indic atedon 06-21-2020 Anisocytosis Ql (Bld) MODERATE Normal [facility] Comment on above: Order Comment: Items in this order include: Comprehensive Metabolic Panel, Lipid Panel, Uric Acid , Vit D 25 [place] (Total), CBC with differential, HgbA1C, , , , Slide Scan if Indicated, Manual Differential if IndicatedTesting Performed By: [facility] [address] [place] [address]. [place] [address] Dr. Donnie Jean, Lab DirectorItems in this order include: Comprehensive Metabolic Panel, Lipid Panel, Uric Acid , Vit D 25 [place] (Total), CBC with differential, HgbA1C, , , , Manual Differential if IndicatedReceived comment: User comments: Slide comments: Performed By: #### C 709 #### [facility] [address] [place] [address] [place] [address] Basophils 1 % Normal [facility] Comment on above: Order Comment: Items in this order include: Comprehensive Metabolic Panel, Lipid Panel, Uric Acid , Vit D 25 [place] (Total), CBC with differential, HgbA1C, , , , Slide Scan if Indicated, Manual Differential if IndicatedTesting Performed By: [facility] [address] [place] [address]. [place] [address] Dr. Donnie Jean, Lab DirectorItems in this order include: Comprehensive Metabolic Panel, Lipid Panel, Uric Acid , Vit D 25 [place] (Total), CBC with differential, HgbA1C, , , , Manual Differential if IndicatedReceived comment: User comments: Slide comments: Performed By: #### C 709 #### [facility] [address] [place] [address] [address] [place] [address] Lymphocytes 7 % Low 20-51 [facility] Comment on above: Order Comment: Items in this order include: Comprehensive Metabolic Panel, Lipid Panel, Uric Acid , Vit D 25 [place] (Total), CBC with differential, HgbA1C, , , , Slide Scan if Indicated, Manual Differential if IndicatedTesting Performed By: [facility] [address] [place] [address]. [place] [address] Dr. Donnie Jean, Lab DirectorItems in this order include: Comprehensive Metabolic Panel, Lipid Panel, Uric Acid , Vit D 25 [place] (Total), CBC with differential, HgbA1C, , , , Manual Differential if IndicatedReceived comment: User comments: Slide comments: Performed By: #### C 709 #### [facility] [address] [place] [address] [address] [place] [address] Macrocytes Ql (Bld) SLIGHT Normal [facility] Comment on above: Order Comment: Items in this order include: Comprehensive Metabolic Panel, Lipid Panel, Uric Acid , Vit D 25 [place] (Total), CBC with differential, HgbA1C, , , , Slide Scan if Indicated, Manual Differential if IndicatedTesting Performed By: [facility] [address] [place] [address]. [place] [address] Dr. Donnie Jean, Lab DirectorItems in this order include: Comprehensive Metabolic Panel, Lipid Panel, Uric Acid , Vit D 25 [place] (Total), CBC with differential, HgbA1C, , , , Manual Differential if IndicatedReceived comment: User comments: Slide comments: Performed By: #### C 709 #### [facility] [address] [place] [address] [address] [place] [address] Metamyelocytes 3 % High <2 [facility] Comment on above: Order Comment: Items in this order include: Comprehensive Metabolic Panel, Lipid Panel, Uric Acid , Vit D 25 [place] (Total), CBC with differential, HgbA1C, , , , Slide Scan if Indicated, Manual Differential if IndicatedTesting Performed By: [facility] [address] [place] [address]. [place] [address] Dr. Donnie Jean, Lab DirectorItems in this order include: Comprehensive Metabolic Panel, Lipid Panel, Uric Acid , Vit D 25 [place] (Total), CBC with differential, HgbA1C, , , , Manual Differential if IndicatedReceived comment: User comments: Slide comments: Performed By: #### C 709 #### [facility] [address] [place] [address] [address] [place] [id number] Microcytes SLIGHT Normal SLIGHT [facility] Comment on above: Order Comment: Items in this order include: Comprehensive Metabolic Panel, Lipid Panel, Uric Acid , Vit D 25 [place] (Total), CBC with differential, HgbA1C, , , , Slide Scan if Indicated, Manual Differential if IndicatedTesting Performed By: [facility] [address] [place] [address] Dr. Donnie Jean, Lab DirectorItems in this order include: Comprehensive Metabolic Panel, Lipid Panel, Uric Acid , Vit D 25 [place] (Total), CBC with differential, HgbA1C, , , , Manual Differential if IndicatedReceived comment: User comments: Slide comments: Performed By: #### C 709 #### [facility] [address] [place] [address] [address] - [place] [id number] Neutrophils 89 % High 42-75 [facility] Comment on above: Order Comment: Items in this order include: Comprehensive Metabolic Panel, Lipid Panel, Uric Acid , Vit D 25 [place] (Total), CBC with differential, HgbA1C, , , , Slide Scan if Indicated, Manual Differential if IndicatedTesting Performed By: [facility] [address] [place] [address]. [place] [id number] Dr. Donnie Jean, Lab DirectorItems in this order include: Comprehensive Metabolic Panel, Lipid Panel, Uric Acid , Vit D 25 [place] (Total), CBC with differential, HgbA1C, , , , Manual Differential if IndicatedReceived comment: User comments: Slide comments: Performed By: #### C 709 #### [facility] [address] [place] [address] Polychromasia SLIGHT Normal [facility] Comment on above: Order Comment: Items in this order include: Comprehensive Metabolic Panel, Lipid Panel, Uric Acid , Vit D 25 [place] (Total), CBC with differential, HgbA1C, , , , Slide Scan if Indicated, Manual Differential if IndicatedTesting Performed By: [facility] [address] [place] [address]. [place] [address] Dr. Donnie Jean, Lab DirectorItems in this order include: Comprehensive Metabolic Panel, Lipid Panel, Uric Acid , Vit D 25 [place] (Total), CBC with differential, HgbA1C, , , , Manual Differential if IndicatedReceived comment: User comments: Slide comments: Performed By: #### C 709 #### [facility] [address] [place] [address] [address] [place] [address] Uric Acidon 06-21-2020 Urate [Mass/Vol] 9.0 mg/dL High 2.5-6.2 [facility] Comment on above: Performed By: #### C 709 #### [facility] [address] [place] [address] [address] [place] [address] Vit D 25 [place] (Total)on 2019 Vit D 25 [place] (Total) 36.9 ng/ml Normal 31.0-100.0 [facility] Comment on above: Order Comment: Items in this order include: Comprehensive Metabolic Panel, Lipid Panel, Uric Acid , Vit D 25 [place] (Total), CBC with differential, HgbA1C, , , , Slide Scan if Indicated, Manual Differential if IndicatedTesting Performed By: [facility] [address] [place] [address]. [place] [address] Dr. Donnie Jean, Lab DirectorItems in this order include: Comprehensive Metabolic Panel, Lipid Panel, Uric Acid , Vit D 25 [place] (Total), CBC with differential, HgbA1C, , , , Manual Differential if Indicated Result Comment: Defi ciency <10 ng/ml Insufficiency 10-30 ng/ml Sufficiency 31-100 ng/ml Toxicity >100 ng/ml Performed By: #### C 709 #### [facility] [address] [facility] [address] [place] [address] MA Mammo Digital Diag RT w t virgilio (NB)on 02-03-2020 MA Mammo Digital Diag RT w mark (NB) EXAMINATION TYPE: MA Mammo Digital Diag RT w mark (NB) DATE OF EXAM : 02/03/2020 2:19 [...] Stuart MD 02/03/2020 14:27 Assigned Physician: Jazlyn Stuart MD Reviewed and Electronically Signed By: Jazlyn Stuart MD 02/03/2020 14:28 Transcribed by: OSKAR 02/03/2020 14:27 Technologist: PRINCE Cam [facility] Mammo Digital Screen bila t w mark(NB)on [...] will be immediately mailed to the patient. [facility] thanks you for the opportunity to care for your patient. Workstation ID: [id number] FINAL REPORT Dictated By: Jazlyn Stuart MD 02/01/2020 14:28 Assigned Physician: Jazlyn Stuart MD Reviewed and Electronically Signed By: Jazlyn Stuart MD 02/01/2020 14:29 Transcribed by: OSKAR 02/01/2020 14:28 Technologist: JEROME Cam [facility] CBC with differentialon Erythrocyte distribution width (RBC) [Ratio] 14.7 % Normal 11.5-15.5 [facility] Comment on above: Order Comment: Items in this order include: Cholesterol, Comprehensive Metabolic Panel, Direct LDL , HDL, Uric Acid , CBC with differential, HgbA1C, , , Slide Scan if Indicated, Manual Differential if Indicated Testing Performed By: [facility] [address] [place] [address]. [place] [address] Dr. Donnie Jean, Color Printer Operator Items in this order include: Cholesterol, Comprehensive Metabolic Panel, Direct LDL , HDL, Uric Acid , CBC with differential, HgbA1C, , , Slide Scan if Indicated, Manual Differential if Indicated Testing Performed By: [facility] [address] [place], [place] [address] [place] [address] Dr. Donnie Jean, Color Printer Operator Items in this order include: Cholesterol, Comprehensive Metabolic Panel, Direct LDL , HDL, Uric Acid , CBC with differential, HgbA1C, , , Slide Scan if Indicated, Manual Differential if Indicated Testing Performed By: [facility] [address] [place] [address]. [place] [address] Dr. Donnie Jean, Color Printer Operator Performed By: #### C 120, C141, C116, C406, C4521, C118, C47, C4523, C215 #### [facility] [address] [place] [address] [address] [place] [address] Hematocrit (Bld) [Volume fraction] 40.6 % Normal 37.0-47.0 [facility] Comment on above: Order Comment: Items in this order include: Cholesterol, Comprehensive Metabolic Panel, Direct LDL , HDL, Uric Acid , CBC with differential, HgbA1C, , , Slide Scan if Indicated, Manual Differential if Indicated Testing Performed By: [facility] [address] [place] [address]. [place] [address] Dr. Donnie Jean, Color Printer Operator Items in this order include: Cholesterol, Comprehensive Metabolic Panel, Direct LDL , HDL, Uric Acid , CBC with differential, HgbA1C, , , Slide Scan if Indicated, Manual Differential if Indicated Testing Performed By: [facility] [address] [place] [address]. [place] [address] Dr. Donnie Jean, Color Printer Operator Items in this order include: Cholesterol, Comprehensive Metabolic Panel, Direct LDL , HDL, Uric Acid , CBC with differential, HgbA1C, , , Slide Scan if Indicated, Manual Differential if Indicated Testing Performed By: [facility] [address] [place] [address]. [place] [address] Dr. Donnie Jean, Color Printer Operator Performed By: #### C 120, C141, C116, C406, C4521, C118, C47, C4523, C215 #### [facility], [facility]. [address] [place] [address] [address] [place] [address] Hemoglobin (Bld) [Mass/Vol] 12.9 g/dL Normal 11.5-15.5 [facility] Comment on above: Order Comment: Items in this order include: Cholesterol, Comprehensive Metabolic Panel, Direct LDL , HDL, Uric Acid , CBC with differential, HgbA1C, , , Slide Scan if Indicated, Manual Differential if Indicated Testing Performed By: [facility] [address] [place] [address]. [place] [address] Dr. Donnie Jean, Color Printer Operator Items in this order include: Cholesterol, Comprehensive Metabolic Panel, Direct LDL , HDL, Uric Acid , CBC with differential, HgbA1C, , , Slide Scan if Indicated, Manual Differential if Indicated Testing Performed By: [facility] [address] [place] [address]. [place] [address] Dr. Donnie Jean, Color Printer Operator Items in this order include: Cholesterol, Comprehensive Metabolic Panel, Direct LDL , HDL, Uric Acid , CBC with differential, HgbA1C, , , Slide Scan if Indicated, Manual Differential if Indicated Testing Performed By: [facility] [address] [place] [address]. [place] [address] Dr. Donnie Jean, Color Printer Operator Performed By: #### C 120, C141, C116, C406, C4521, C118, C47, C4523, C215 #### [facility] [facility] [address] [place] [address] MCH (RBC) [Entitic mass] 35.1 pg High 27.0-31.0 [facility] Comment on above: Order Comment: Items in this order include: Cholesterol, Comprehensive Metabolic Panel, Direct LDL , HDL, Uric Acid , CBC with differential, HgbA1C, , , Slide Scan if Indicated, Manual Differential if Indicated Testing Performed By: [facility] [address] [place] [address] Dr. Donnie Jean, Color Printer Operator Items in this order include: Cholesterol, Comprehensive Metabolic Panel, Direct LDL , HDL, Uric Acid , CBC with differential, HgbA1C, , , Slide Scan if Indicated, Manual Differential if Indicated Testing Performed By: [facility] [address] [place] [address] Dr. Donnie Jean, Color Printer Operator Items in this order include: Cholesterol, Comprehensive Metabolic Panel, Direct LDL , HDL, Uric Acid , CBC with differential, HgbA1C, , , Slide Scan if Indicated, Manual Differential if Indicated Testing Performed By: [facility] [address] [place] [address] Dr. Donnie Jean, Color Printer Operator Performed By: #### C 120, C141, C116, C406, C4521, C118, C47, C4523, C215 #### [facility], [facility]. [address] [place] [address] [address] [place] [address] MCHC (RBC) [Mass/Vol] 31.8 g/dL Low 32.0-36.0 [facility] Comment on above: Order Comment: Items in this order include: Cholesterol, Comprehensive Metabolic Panel, Direct LDL , HDL, Uric Acid , CBC with differential, HgbA1C, , , Slide Scan if Indicated, Manual Differential if Indicated Testing Performed By: [facility] [address] [place] [address] Dr. Donnie Jean, Color Printer Operator Items in this order include: Cholesterol, Comprehensive Metabolic Panel, Direct LDL , HDL, Uric Acid , CBC with differential, HgbA1C, , , Slide Scan if Indicated, Manual Differential if Indicated Testing Performed By: [facility] [address] [place] [address] Dr. Donnie Jean, Color Printer Operator Items in this order include: Cholesterol, Comprehensive Metabolic Panel, Direct LDL , HDL, Uric Acid , CBC with differential, HgbA1C, , , Slide Scan if Indicated, Manual Differential if Indicated Testing Performed By: [facility] [address] [place] [address] Dr. Donnie Jean, Color Printer Operator Performed By: #### C 120, C141, C116, C406, C4521, C118, C47, C4523, C215 #### [facility], [facility]. [address] [place] [address] [address] [place] [address] MCV (RBC) [Entitic vol] 110.6 fL High 78.0-100.0 [facility] Comment on above: Order Comment: Items in this order include: Cholesterol, Comprehensive Metabolic Panel, Direct LDL , HDL, Uric Acid , CBC with differential, HgbA1C, , , Slide Scan if Indicated, Manual Differential if Indicated Testing Performed By: [facility] [address] [place] [address] Dr. Donnie Jean, Color Printer Operator Items in this order include: Cholesterol, Comprehensive Metabolic Panel, Direct LDL , HDL, Uric Acid , CBC with differential, HgbA1C, , , Slide Scan if Indicated, Manual Differential if Indicated Testing Performed By: [facility] [address] [place] [address] Dr. Donnie Jean, Color Printer Operator Items in this order include: Cholesterol, Comprehensive Metabolic Panel, Direct LDL , HDL, Uric Acid , CBC with differential, HgbA1C, , , Slide Scan if Indicated, Manual Differential if Indicated Testing Performed By: [facility] [address] [place] [address] Dr. Donnie Jean, Color Printer Operator Performed By: #### C 120, C141, C116, C406, C4521, C118, C47, C4523, C215 #### [facility] [address] [facility] [address] [place] [address] Platelet mean volume (Bld) [Entitic vol] 10.6 fL Normal 8.9-12.6 [facility] Comment on above: Order Comment: Items in this order include: Cholesterol, Comprehensive Metabolic Panel, Direct LDL , HDL, Uric Acid , CBC with differential, HgbA1C, , , Slide Scan if Indicated, Manual Differential if Indicated Testing Performed By: [facility] [address] [place] [address]. [place] [address] Dr. Donnie Jean, Color Printer Operator Items in this order include: Cholesterol, Comprehensive Metabolic Panel, Direct LDL , HDL, Uric Acid , CBC with differential, HgbA1C, , , Slide Scan if Indicated, Manual Differential if Indicated Testing Performed By: [facility] [address] [place] [address]. [place] [address] Dr. Donnie Jean, Color Printer Operator Items in this order include: Cholesterol, Comprehensive Metabolic Panel, Direct LDL , HDL, Uric Acid , CBC with differential, HgbA1C, , , Slide Scan if Indicated, Manual Differential if Indicated Testing Performed By: [facility] [address] [place] [address]. [place] [address] Dr. Donnie Jean, Color Printer Operator Performed By: #### C 120, C141, C116, C406, C4521, C118, C47, C4523, C215 #### [facility] [facility] [address] [place] [address] Platelets (Bld) [#/Vol] 302 K CUMM Normal 130-400 [facility] Comment on above: Order Comment: Items in this order include: Cholesterol, Comprehensive Metabolic Panel, Direct LDL , HDL, Uric Acid , CBC with differential, HgbA1C, , , Slide Scan if Indicated, Manual Differential if Indicated Testing Performed By: [facility] [address] [place] [address]. [place] [address] Dr. Donnie Jean, Color Printer Operator Items in this order include: Cholesterol, Comprehensive Metabolic Panel, Direct LDL , HDL, Uric Acid , CBC with differential, HgbA1C, , , Slide Scan if Indicated, Manual Differential if Indicated Testing Performed By: [facility] [address] [place] [address]. [place] [address] Dr. Donnie Jean, Color Printer Operator Items in this order include: Cholesterol, Comprehensive Metabolic Panel, Direct LDL , HDL, Uric Acid , CBC with differential, HgbA1C, , , Slide Scan if Indicated, Manual Differential if Indicated Testing Performed By: [facility] [address] [place] [address]. [place] [address] Dr. Donnie Jean, Color Printer Operator Performed By: #### C 120, C141, C116, C406, C4521, C118, C47, C4523, C215 #### [facility] [address] [place] [address] [address] [place] [address] RBC (Bld) [#/Vol] 3.67 M CUMM Low 3.80-5.[address] [facility] Comment on above: Order Comment: Items in this order include: Cholesterol, Comprehensive Metabolic Panel, Direct LDL , HDL, Uric Acid , CBC with differential, HgbA1C, , , Slide Scan if Indicated, Manual Differential if Indicated Testing Performed By: [facility] [address] [place] [address] [address] Dr. Donnie Jean, Color Printer Operator Items in this order include: Cholesterol, Comprehensive Metabolic Panel, Direct LDL , HDL, Uric Acid , CBC with differential, HgbA1C, , , Slide Scan if Indicated, Manual Differential if Indicated Testing Performed By: [facility] [address] [place] [address]. [place] [address] Dr. Donnie Jean, Color Printer Operator Items in this order include: Cholesterol, Comprehensive Metabolic Panel, Direct LDL , HDL, Uric Acid , CBC with differential, HgbA1C, , , Slide Scan if Indicated, Manual Differential if Indicated Testing Performed By: [facility] [address] [place] [address]. [place] [address] Dr. Donnie Jean, Color Printer Operator Performed By: #### C 120, C141, C116, C406, C4521, C118, C47, C4523, C215 #### [facility] [address] [facility] [address] [place] [address] WBC (Bld) [#/Vol] 19.7 K CUMM High 3.8-10.6 [facility] Comment on above: Order Comment: Items in this order include: Cholesterol, Comprehensive Metabolic Panel, Direct LDL , HDL, Uric Acid , CBC with differential, HgbA1C, , , Slide Scan if Indicated, Manual Differential if Indicated Testing Performed By: [facility] [address] [place] [address]. [place] [id number] Dr. Donnie Jean, Color Printer Operator Items in this order include: Cholesterol, Comprehensive Metabolic Panel, Direct LDL , HDL, Uric Acid , CBC with differential, HgbA1C, , , Slide Scan if Indicated, Manual Differential if Indicated Testing Performed By: [facility] [address] [place] [address]. [place] [address] Dr. Donnie Jean, Color Printer Operator Items in this order include: Cholesterol, Comprehensive Metabolic Panel, Direct LDL , HDL, Uric Acid , CBC with differential, HgbA1C, , , Slide Scan if Indicated, Manual Differential if Indicated Testing Performed By: [facility] [address] [place] [address]. [place] [address] Dr. Donnie Jean, Color Printer Operator Performed By: #### C 120, C141, C116, C406, C4521, C118, C47, C4523, C215 #### [facility] [address] [place] [address] [address] [place] [address] Cholesterolon 01-18-2020 Cholesterol [Mass/Vol] 112 mg/dL Normal <200 [facility] Comment on above: Order Comment: Items in this order include: Cholesterol, Comprehensive Metabolic Panel, Direct LDL , HDL, Uric Acid , CBC with differential, HgbA1C, , , Slide Scan if Indicated, Manual Differential if Indicated Testing Performed By: [facility] [address] [place] [address]. [place] [address] Dr. Donnie Jean, Color Printer Operator Performed By: #### C 120, C141, C116, C406, C4521, C118, C47, C4523, C215 #### [facility] [facility] [address] [place] [address] Comprehensive Metabolic Pane donnie 01-18-2020 Albumin [Mass/Vol] 4.0 g/dL Normal 3.5-5.0 [facility] Comment on above: Performed By: #### C 120, C141, C116, C406, C4521, C118, C47, C4523, C215 #### [facility] [address] [place] [address] Alk Phos 74 U/L Normal 23-159 [facility] Comment on above: Performed By: #### C 120, C141, C116, C406, C4521, C118, C47, C4523, C215 #### [facility] [address] [place] [address] ALT [Catalytic activity/Vol] 18 U/L Normal 0-38 [facility] Comment on above: Performed By: #### C 120, C141, C116, C406, C4521, C118, C47, C4523, C215 #### [facility] [address] [place] [address] AST [Catalytic activity/Vol] 22 U/L Normal 11-43 [facility] Comment on above: Performed By: #### C 120, C141, C116, C406, C4521, C118, C47, C4523, C215 #### [facility] [address] [place] [address] Bilirubin [Mass/Vol] 0.6 mg/dL Normal 0.2-1.3 [facility] Comment on above: Performed By: #### C 120, C141, C116, C406, C4521, C118, C47, C4523, C215 #### [facility] [address] [place] [address] Calcium [Mass/Vol] 9.2 mg/dL Normal 8.5-10.5 [facility] Comment on above: Performed By: #### C 120, C141, C116, C406, C4521, C118, C47, C4523, C215 #### [facility] [address] [place] [address] Chloride [Moles/Vol] 101 mmol/L Normal 98-107 [facility] Comment on above: Performed By: #### C 120, C141, C116, C406, C4521, C118, C47, C4523, C215 #### [facility] [address] [place] [address] CO2 [Moles/Vol] 22.0 mmol/L Normal 21.0-32.0 [facility] Comment on above: Performed By: #### C 120, C141, C116, C406, C4521, C118, C47, C4523, C215 #### [facility] [address] [place] [address] Creatinine [Mass/Vol] 1.2 mg/dL Normal 0.1-1.2 [facility] Comment on above: Performed By: #### C 120, C141, C116, C406, C4521, C118, C47, C4523, C215 #### [facility] [address] [place] [address] GFR/1.73 sq M.predicted MDRD (S/P/Bld) [Vol rate/Area] 43 mL/min per 1.73 Low >60 [facility] Comment on above: Result Comment: The GFR estimate is not adjusted for race. If the patient's race is -[place] Island[place], the GFR estimate must be multiplied by a factor of 1.21. Performed By: #### C 120, C141, C116, C406, C4521, C118, C47, C4523, C215 #### [facility] [address] [place] [address] Glucose [Mass/Vol] 157 mg/dL High 74-100 [facility] Comment on above: Performed By: #### C 120, C141, C116, C406, C4521, C118, C47, C4523, C215 #### [facility] [address] [facility] [place] [address] Potassium [Moles/Vol] 4.3 mmol/L Normal 3.5-5.3 [facility] Comment on above: Performed By: #### C 120, C141, C116, C406, C4521, C118, C47, C4523, C215 #### [facility] [address] [facility] [place] [address] Protein [Mass/Vol] 6.7 g/dL Normal 6.3-8.4 [facility] Comment on above: Performed By: #### C 120, C141, C116, C406, C4521, C118, C47, C4523, C215 #### [facility] [address] [facility] [place] [address] Sodium [Moles/Vol] 136 mmol/L Normal 135-145 [facility] Comment on above: Performed By: #### C 120, C141, C116, C406, C4521, C118, C47, C4523, C215 #### [facility] [address] [facility] [place] [address] Urea nitrogen [Mass/Vol] 25 mg/dL High 6-22 [facility] Comment on above: Performed By: #### C 120, C141, C116, C406, C4521, C118, C47, C4523, C215 #### [facility] [address] [facility] [address] [place] [address] Direct LDLon 01-18-2020 Cholesterol in LDL [Mass/Vol] 49 mg/dL Normal <130 [facility] Comment on above: Order Comment: Items in this order include: Cholesterol, Comprehensive Metabolic Panel, Direct LDL , HDL, Uric Acid , CBC with differential, HgbA1C, , , Slide Scan if Indicated, Manual Differential if Indicated Testing Performed By: [facility] [address] [place] [address]. [place] [address] Dr. Donnie Jean, Color Printer Operator Result Comment: LDL goal dependent upon individual risk Performed By: #### C 120, C141, C116, C406, C4521, C118, C47, C4523, C215 #### [facility] [address] [place] [id number] HDLon 01-18-2020 Cholesterol in HDL [Mass/Vol] 30 mg/dL Low >50 [facility] Comment on above: Performed By: #### C 120, C141, C116, C406, C4521, C118, C47, C4523, C215 #### [facility] [address] [place] [address] [address] [place] [id number] 01-18-2020 HbA1c (Bld) [Mass fraction] 6.7 % High <5.7 [facility] Comment on above: Order Comment: Items in this order include: Cholesterol, Comprehensive Metabolic Panel, Direct LDL , HDL, Uric Acid , CBC with differential, HgbA1C, , , Slide Scan if Indicated, Manual Differential if IndicatedTesting Performed By: [facility] [address] [place] [address]. [place] [address] Dr. Donnie Jean, Color Printer Operator Result Comment: Refe rence Interval: Normal: below 5.7%. Prediabetes: 5.7% to 6.4%. Diabetes: 6.5% or above. Performed By: #### C 709 #### [facility] [address] [facility] [facility] [address] [place] [address] Manual Differential if Indic atedon 01-18-2020 Anisocytosis Ql (Bld) SLIGHT Normal [facility] Comment on above: Order Comment: Recei mandy comment: User comments: Slide comments: Performed By: #### C 120, C141, C116, C406, C4521, C118, C47, C4523, C215 #### [facility] [address] [place] [address] Performed By: #### C 709 #### [facility] [address] [place] [address] Basophils 2 % Normal [facility] Comment on above: Order Comment: Recei mandy comment: User comments: Slide comments: Performed By: #### C 120, C141, C116, C406, C4521, C118, C47, C4523, C215 #### [facility] [address] [place] [address] Luna Cells SLIGHT Normal [facility] Comment on above: Order Comment: Recei mandy comment: User comments: Slide comments: Performed By: #### C 120, C141, C116, C406, C4521, C118, C47, C4523, C215 #### [facility] [address] [place] [address] Performed By: #### C 709 #### [facility] [address] [place] [address] Hypochromasia SLIGHT Normal SLIGHT [facility] Comment on above: Order Comment: Recei mandy comment: User comments: Slide comments: Performed By: #### C 120, C141, C116, C406, C4521, C118, C47, C4523, C215 #### [facility] [address] [place] [address] Performed By: #### C 709 #### [facility] [address] [place] [address] Lymphocytes 4 % Low 20-51 [facility] Comment on above: Order Comment: Recei mandy comment: User comments: Slide comments: Performed By: #### C 120, C141, C116, C406, C4521, C118, C47, C4523, C215 #### [facility] [address] [place] [address] Macrocytes Ql (Bld) SLIGHT Normal [facility] Comment on above: Order Comment: Recei mandy comment: User comments: Slide comments: Performed By: #### C 120, C141, C116, C406, C4521, C118, C47, C4523, C215 #### [facility] [address] [place] [address] Performed By: #### C 709 #### [facility] [address] [place] [address] Monocytes 3 % Normal 2-9 [facility] Comment on above: Order Comment: Recei mandy comment: User comments: Slide comments: Performed By: #### C 120, C141, C116, C406, C4521, C118, C47, C4523, C215 #### [facility] [address] [place] [address] Neutrophils 91 % High 42-75 [facility] Comment on above: Order Comment: Recei mandy comment: User comments: Slide comments: Performed By: #### C 120, C141, C116, C406, C4521, C118, C47, C4523, C215 #### [facility] [address] [place] [address] Ovalocytes SLIGHT Normal [facility] Comment on above: Order Comment: Recei mandy comment: User comments: Slide comments: Performed By: #### C 120, C141, C116, C406, C4521, C118, C47, C4523, C215 #### [facility] [address] [place] [address] Performed By: #### C 709 #### [facility] [address] [place] [address] Poikilocytosis SLIGHT Normal [facility] Comment on above: Order Comment: Recei mandy comment: User comments: Slide comments: Performed By: #### C 120, C141, C116, C406, C4521, C118, C47, C4523, C215 #### [facility] [address] [place] [address] Performed By: #### C 709 #### [facility] [address] [place] [address] Polychromasia SLIGHT Normal [facility] Comment on above: Order Comment: Jorge L galvan comment: User comments: Slide comments: Performed By: #### C 120, C141, C116, C406, C4521, C118, C47, C4523, C215 #### [facility] [address] [place] [address] Performed By: #### C 709 #### [facility] [address] [place] [address] Uric Acidon 01-18-2020 Urate [Mass/Vol] 5.2 mg/dL Normal 2.5-6.2 [facility] Comment on above: Performed By: #### C 120, C141, C116, C406, C4521, C118, C47, C4523, C215 #### [facility] [address] [place] [address] Vital Signs Date Time Vital Sign Value Performing Clinician Faci lity 01-06-2024 14:30-0500 Body height 162.6 cm Leighton Horvath MD Work Phone: [facility] 01-06-2024 14:30-0500 Body mass index (BMI) [Ratio] 29.02 kg/m2 Leighton Horvath MD Work Phone: [facility] 01-06-2024 14:30-0500 Body temperature 97.7 [degF] Leighton Horvath MD Work Phone: [facility] 01-06-2024 14:30-0500 Body weight 76.7 kg Leighton Horvath MD Work Phone: [facility] Encounters Encounter Date Encounter Type Care Provider Facility Start: 01-06-2024 End: 01-07-2024 ambulatory [facility] Start: 01-06-2024 End: 01-06-2024 Office outpatient visit 15 minutes Leighton Horvath MD Work Phone: [facility] Comment on above: Closed displaced fra cture of right acetabulum with routine healing, unspecified portion of acetabulum, subsequent encounter (Primary Dx) Start: 12-09-2023 End: 12-09-2023 ambulatory ANTONIO Stoddard APLING Not Available Start: 10-21-2023 End: 10-21-2023 ambulatory ANTONIO Stoddard APLING Not Available Start: 09-30-2023 End: 10-01-2023 ambulatory ANTONIO Stoddard APLING Not Available Start: 09-20-2023 End: 09-20-2023 ambulatory [facility] Start: 03-08-2023 End: 03-08-2023 ambulatory BECK RENEE Facility:[facility] Start: 03-01-2023 End: 03-01-2023 ambulatory BECK RENEE Facility:[facility] Start: 02-19-2023 ambulatory BECK RENEE Facility: [facility] Start: 02-06-2023 End: 02-06-[address] SON HADLEY Facility:[facility] Start: 01-18-2023 End: 01-19-2023 ambulatory BECK RENEE Facility:[facility] Start: 01-18-2023 End: 01-18-2023 ambulatory BECK RENEE Facility:[facility] Start: 12-25-2022 End: 12-25-2022 ambulatory TRACI [facility] Start: 06-26-2022 End: 06-27-2022 ambulatory YOU BARILLAS Facility:[facility] Start: 05-08-2022 End: 05-09-[address] BENNIE ALBRIGHT . Facility:[facility] Start: 04-03-2022 End: 04-18-2022 ambulatory LOU RANDHAWA Facility:[facility] Start: 04-01-2022 End: 04-16-2022 Evaluation and management of inpatient Genaro Gordillo Facility:[facility] Start: 03-22-2022 End: 04-01-2022 Evaluation and management of inpatient DR FARSHAD DONALDSON . Facility:[facility] Start: 11-02-2021 ambulatory CHICAMARIPOSA ARAIZA Facility :[facility] Start: 08-17-2021 ambulatory [facility] Start: 07-21-2020 End: 07-21-2020 Patient encounter procedure ARA COFFMAN [facility] Procedures Date Procedure Procedure Detail Performing Clinician Start: 01-06-2024 Follow-up visit Follow-up LEIGHTON HORVATH Start: 04-03-2022 Antibody screen LOU Mitchell CRISTY Comment on above: Performed By: #### 8 [id number] #### [address] Plan of Treatment Date Care Activity Detail Author Start: 01-06-2025 Adult BMI Screening Adult BMI Screening [facility] Start: 01-06-2025 Tobacco Screening Tobacco Screening [facility] Start: 07-30-2024 End: 07-30-2024 Patient encounter procedure 07/30/2024 1:00 PM EDT Office Visit Amairani Lowry [facility] [address] [place] [phone] Laurel Mueller MD [address] [place] [address] [address] [place], [place] [id number] Amairani Lowry [facility] Start: 07-19-2023 COVID-19 Vaccine ( season) COVID-19 Vaccine ( season) [facility] Start: 07-19-2023 Influenza vaccination [facility]ine [facility] Start: 07-09-2017 Administration of varicella zoster vaccine Zoster (Shingles) Vaccine (1 of 2) [facility] Start: 2004 Fall Risk Screening Fall Risk Screening [facility] [employer] Start: 1958 DTaP,Tdap and Td Vaccines (1 - Tdap) DTaP,Tdap and Td Vaccines (1 - Tdap) [facility] Start: 1958 Adult BMI Follow Up Plan Adult BMI Follow Up Plan [facility] Start: 1952 Depression Screening Depression Screening [facility] Start: 1940 Medicare Annual Wellness Visit Medicare Annual Wellness Visit [facility] Immunizations Immunization Date Immunization Notes Care Provider Fa turner 03-08-2022 COVID-19, mRNA, LNP- S, PF, 100mcg/0.5mL Dose Leighton Horvath MD Work Phone: [facility] 08-10-2021 pneumococcal conjuga te vaccine, 13 valent Leighton Horvath MD Work Phone: [facility] 08-22-2020 Influenza, High-dose , Quadrivalent Leighton Horvath MD Work Phone: [facility] 08-22-2020 pneumococcal conjuga te vaccine, 13 valent Leighton Horvath MD Work Phone: [facility] 08-22-2020 influenza virus vacc ine, unspecified formulation Leighton Horvath MD Work Phone: [facility] 05-10-2020 pneumococcal polysaccharide vaccine, 23 valent Leighton Horvath MD Work Phone: [facility] 09-21-2019 influenza, high dose seasonal, preservative-free Leighton Horvath MD Work Phone: [facility] 10-21-2018 influenza, high dose seasonal, preservative-free Leighton Horvath MD Work Phone: [facility] 05-14-2017 zoster vaccine, live Leighton Horvath MD Work Phone: [facility] 05-14-2017 zoster vaccine, unspecified formulation Leighton Horvath MD Work Phone: [facility] 09-10-2016 influenza, high dose seasonal, preservative-free Leighton Horvath MD Work Phone: [facility] 09-10-2016 pneumococcal conjuga te vaccine, 13 valent Leighton Horvath MD Work Phone: [facility] 09-01-2015 influenza, high dose seasonal, preservative-free Leighton Horvath MD Work Phone: [facility] 08-26-2014 influenza, seasonal, injectable Leighton Horvath MD Work Phone: [facility] 08-26-2014 pneumococcal polysaccharide vaccine, 23 valent Leighton Horvath MD [facility]: [facility] 08-26-2013 influenza, seasonal, injectable Leighton Horvath MD Work Phone: [facility] Payers Date Payer Category Payer Medicare [employer] MEDICARE UHC MEDICARE ADVANTAGE PPO [id number] 2022-Present [phone] [address] [address] [place] [address] [id number] 2021 Medicaid MEDICAID [facility] EDICAID [id number] 2021-Present [phone] [address] [place] [address] [id number] 2019 Medicare [id number] 1960 Medicaid [id number] 1959 Medicare [id number] 1959 Private Health Insurance [id number] 1939 Unknown [id number] 2.16.840.1.863089.3.579. 2.900 1939 Unknown [id number] 2.16.840.1.071013.3.579. 2.594 1939 Unknown [id number] 2.16.840.1.124676.3.579. 2.594 1939 Unknown [id number] 2.16.840.1.949144.3.579. 2.594 1939 Unknown [id number] 2.16.840.1.723352.3.579. 2.647 1939 Unknown [id number] 2.16.840.1.975169.3.579. 2.647 1939 Unknown [id number] 2.16.840.1.599846.3.579. 2.647 1939 Unknown [id number] 2.16.840.1.452751.3.579. 2.593 1939 Unknown [id number] 2.16.840.1.996361.3.579. 2.593 1939 Unknown [id number] 2.16.840.1.155930.3.579. 2.593 1939 Unknown [id number] 2.16.840.1.441565.3.579. 2.593 1939 Unknown [id number] 2.16.840.1.903813.3.579. 2.593 1939 Unknown [id number] 2.16.840.1.899207.3.579. 2.593 1939 Unknown [id number] 2.16.840.1.715324.3.579. 2.593 1939 Unknown [id number] 2.16.840.1.660888.3.579. 2.593 1939 Unknown [id number] 2.16.840.1.463715.3.579. 2.1259 1939 Unknown [id number] 2.16.840.1.280624.3.579. 2.1259 1939 Unknown [id number] 2.16.840.1.947964.3.579. 2.1259 1939 Unknown [id number] 2.16.840.1.581083.3.579. 2.1259 1939 Unknown [id number] 2.16.840.1.025314.3.579. 2.1286 1939 Unknown [id number] 2.16.840.1.163242.3.579. 2.1286 Social History Date Type Detail Facility Start: 02-07-2023 Tobacco smoking stat us [facility]IS Ex-smoker [facility] History of tobacco use Current smoker [facility] History of tobacco use Cigarette Smoker P [facility] Start: 02-07-2023 Tobacco use and exposure Smokeless tobacco non-user [facility] Start: 01-07-2024 Alcohol intake Ex-drinker (finding) [facility] Start: 01-06-2024 End: 01-07-2024 History of Social function [facility] Start: 01-06-2024 End: 01-07-2024 Tobacco use panel [facility] Are you worried or concerned that in the next two months you may not have stable housing that you own, rent or stay in as a part of a household? No [facility] Start: 1940 Sex Assigned At Female P [facility] Medical Equipment Procedure Code Equipment Code Equipment Origin al Text Equipment Identifier Dates Plate Bn [id number] m 1/3 Tblr 6 Hl Colr Ss .5mm 12mm Ns - [id number] Start: 02-08-2023 Screw Bn 26mm 4m m 6mm Sm Hex Sckt Canc Ss 2.5mm Ft Ns Sm - [id number] Start: 02-08-2023 Goals Date Patient Goal Desired Activity /State Personal health goal Comment on above: Formatting of this n ote might be different from the original. Evaluation of progress towards goal: Patient and family are planning to transition to SNF at discharge. History of Present illness Narrative 01-06-2024 Domonique Fernandez MD - 01/06/2024 2:30 PM ESTLeighton Horvath MD - 01/06/2024 2:30 PM EST Note Date & Type Note Facility 01-06-2024 History of Presen t illness Narrative CC: S/P ORIF right acetabular fracture Subjective: HPI DOS: 02/08/2023 11 months María Elena Tafoya is a 83 y.o. female who is here today for a follow-up visit. She is 11 months out from the above injury. The patient reports occasional pains in her right thigh with walking, but otherwise she has no complaints. She continues to work with PT/OT at her care facility. She utilizes a walker for short distances and a wheelchair for long distances. Denies fever/chills/numbness/tingling Past Medical, Surgical, and Family Histories: were reviewed during this visit. Social History Occupational History Not on file Tobacco Use Smoking status: Former Types: Cigarettes Smokeless tobacco: Never Vaping Use Vaping Use: Never used Substance and Sexual Activity Alcohol use: Not Currently Drug use: Never Sexual activity: Not on file Medications & allergies: were reviewed at during this visit. Objective: Physical Exam General: Well-developed well-nourished Mentation: Alert and oriented. Extremity Exam: Patient is seated comfortably in a wheelchair. She has very limited internal external rotation of her right hip while seated. No significant pain with this. Sensation intact to light touch to sural, saphenous, SPN, DPN, and tibial distributions. IMAGING: I personally viewed X-ray images of the pelvis AP and Judet views notable for intact hardware without lucency or failure in stable alignment compared to prior images. Diagnosis: History of right anterior column, posterior latoya transverse acetabular fracture s/p ORIF on 02/09/24 Plan: Patient is doing well ambulating with her weightbearing as tolerated at the facility. Discussed if she would like to discuss further care for fragility/osteoporosis medications, we could refer her to osteoporosis clinic. Otherwise, we discussed unless patient has new hip pain/concerns, we will have her follow up on an as needed basis. Domonique Fernandez MD Orthopaedic Surgery, PGY-2 01/06/24 2:46 PM Attending Attestation: I saw the patient. I performed the critical/rodriguez portions of the service. I was directly involved in the management and treatment plan of the patient. I reviewed the resident's note. Additional Notes/Findings: The patient seems comfortable sitting in a wheelchair. Gentle range of motion of her right hip is nontender. At this point she is stable post open reduction and internal fixation of her anterior column, posterior latoya transverse acetabular fracture. I am going to release this 83-year-old woman from routine follow up and have her come back on an as-needed basis. I do recommend that she consider follow-up in our osteoporosis clinic. Leighton Horvath MD documented in this encounter [employer] [employer] [facility] Progress note 09-20-2023 Note Date & Type Note Facility 09-20-2023 Note [place] [facility] Subjective María Elena Tafoya is a 83 [...] in March 2022 was admitted to the [facility] and then [facility] with acute gallstone pancreatitis, acute blood [...] thickness/hypertrophy. Systolic function (more content not included)... [facility] Progress note 12-25-2022 Note Date & Type Note Facility 12-25-2022 Note Cardiovascular Medic [facility] SUBJECTIVE Chief Complaint Patient presents with Atrial Fibrillation María Elena Tafoya is a 82 y.o. female here for follow-up. HPI She is an 82-year-old woman who was admitted in March 2022 to [facility] and then [facility] with acute gallstone pancreatitis, acute blood [...] POC 06/26/2022 11 (more content not included)... [facility] Progress note 12-25-2022 Note Date & Type Note Facility 12-25-2022 Note Patient here for fol low up [place] on event monitor per Dr. Leos. Patient denies chest pain and SOB. Feels good. Review of Systems All other systems reviewed and are negative. [facility] Discharge summary note 04-16-2022 Note Date & Type Note Facility 04-16-2022 Note MR#: [id number] I [facility] Pt. Name: María Elena Tafoya Admitted: [...] Gordillo MD Date Trans: 04/16/2022 09:55 A/erik [id number] cc: Bennie Albright M.D. [address] [address] [facility] Discharge summary note 04-13-2022 Note Date & Type Note Facility 04-13-2022 Note MR#: [id number] I [facility] Pt. Name: María Elena Tafoya Admitted: [...] history as above, who was transferred from [facility] secondary to gallstone induced acute pancreatitis. [...] sign and the patient was admitted to [facility] for further treatment. She was aggressively [...] to repeat a voiding trial at the detention in 1-3 days and follow up with provider at that facility, however, her discharge is currently pending precert, so if she does remain at this facility, we may also just discontinue (more content not included)... [facility] Evaluation note Note Date & Type Note Facility Evaluation note Diagnosis Closed displaced fracture of right acetabulum with routine healing, unspecified portion of acetabulum, subsequent encounter- Primary documented in this encounter [employer] [facility] Instructions Note Date & Type Note Facility Instructions Not on filedocumented in this en counter [facility] Family History No Family History Records FoundNo Family History Records FoundNo Family History Records FoundNo Family History Records FoundNo Family History Records FoundNo Family History Records FoundNo Family History Records FoundNo Family History Records FoundNo Family History Records FoundNo Family History Records Found Advance Directives No Advanced Directives Records FoundDocuments on File Type Date Recorded Patient [employer] Expl anation Advance Directive 01/18/2022 1:07 PM DNR Advance Directive 01/18/2022 11:00 AM [employer] ENGINEER Latest Code Status on File Code Status Date Activated Date Inactivated Comments Full Code 02/07/2023 12:03 AM 02/12/2023 3:45 PM Healthcare Agents on File Name Relationship Healthcare Agent Relationship Communication Andreea Liz Health Care Agent [email or web address] Additional Source Comments INFORMATION SOURCE (unrecogn ized section and content) DATE CREATED AUTHOR 02/04/[address] [facility] DATE CREATED AUTHOR AUTHOR'S ORGANIZ ATION 08/23/2020 [facility] DATE CREATED AUTHOR AUTHOR'S ORGANIZ ATION 09/28/2020 [facility] DATE CREATED AUTHOR AUTHOR'S ORGANIZ ATION 02/12/[address] [facility] DATE CREATED AUTHOR AUTHOR'S ORGANIZ ATION 02/07/2022 [facility] DATE CREATED AUTHOR AUTHOR'S ORGANIZ ATION 07/13/2022 [facility] DATE CREATED AUTHOR AUTHOR'S ORGANIZ ATION 03/15/2023 [facility] DATE CREATED AUTHOR AUTHOR'S ORGANIZ ATION 09/21/2023 [facility] DATE CREATED AUTHOR AUTHOR'S ORGANIZ ATION 12/09/2023 [facility] DATE CREATED AUTHOR AUTHOR'S ORGANIZ ATION 01/08/2024 [facility] Reason for Visit (unrecogniz ed section and content) Reason Comments Establish Care 6 month f/u right ac etabular fracture Follow-up FOR RECORDS PERTAINING TO PATIENTS WHO ARE [...] BE BASED ON THE PRIMARY CLINICAL RECORDS. [employer] [facility]. provides no warranty or guarantee of the accuracy or completeness of information in this document.
[2024-01-27 07:54] LABS: Hematocrit 47.2 % (36.0-48.0); Hemoglobin 14.4 g/dL (12.0-16.0); Mean Corpuscular HGB Conc 30.5 g/dL (29.9-35.2); Mean Corpuscular Hemoglobin 25.9 pg (26.7-34.0); Mean Corpuscular Volume 84.9 fL (81.0-99.0); Mean Platelet Volume 9.8 fL (9.5-13.5); Platelet Count 365 10^3/uL (150-450); Red Blood Count 5.56 10^6/uL (4.20-5.40); Red Cell Distribution Width 19.9 % (11.0-15.0); White Blood Count 26.4 10^3/uL (4.0-11.0)
[2024-01-27 13:03] LABS: Band Neutrophils Absolute 0.5 10^3/uL (0.0-0.3); Lymphocytes Absolute Manual 2.11 10^3/uL (1.20-3.80); Monocytes Absolute Manual 1.32 10^3/uL (0.30-0.80); Segmented Neut Absolute Manual 22.44 10^3/uL (1.4-6.5)
== END 2024-01-27 01:31 | disposition home or self-care (01) ==
LOC: LAB 01:30
PROVIDERS: PCP Family Medicine; Visit Provider Family Medicine
DX: D72.829 Elevated white blood cell count, unspecified (principal); R71.8 Other abnormality of red blood cells; D72.825 Bandemia; D45 Polycythemia vera
CPT/HCPCS: 36415; 85007; 85027

== ENCOUNTER 2024-02-26 06:03 | Outpatient (REF) | payer MEDICARE, MEDICAID, SELFPAY ==
--- OUTSIDE RECORDS SUMMARY | 2024-02-26 06:07 | XMS_ITS | CCD ---
Author Organization [facility] Care Team Providers Care Crystallography Teacher Name Role Phone ARA ROBB Attending Unavailable PETRA ARAIZA Attending Unavailable SELF, SELF Referring Unavailable [facility] Referring Unavailable PETRA ARAIZA Attending Unavailable PETRA ARAIZA Referring Unavailable PETRA ARAIZA Attending Unavailable LOU RANDHAWA Admitting Unavailable LOU RANDHAWA Attending Unavailable BENNIE ALBRIGHT Primary Care Unavailable BENNIE ALBRIGHT Referring Unavailable Samuel Gordilloi Attending Unavailable SELF, REFERRED Referring Unavailable BENNIE ALBRIGHT Primary Care Unavailable Duy, Hani Admitting Unavailable ALASTAL, YASEEN Admitting Unavailable NARGIS, YASEEN Attending Unavailable BENNIE ALBRIGHT Referring Unavailable BENNIE ALBRIGHT Primary Care Unavailable VÍCTOR, BECK Primary Care Unavailable HOSailaja ., DR AVERY Admitting Unavailable HOY ., DR AVERY Attending Unavailable HOY ., DR AVERY Consulting Unavailable VÍCTOR, BECK Primary Care Unavailable ERVIN, BARRAGAN Admitting Unavailable LAUREL MUELLER Attending Unavailable ERVIN, BARRAGAN Consulting Unavailable VÍCTOR, BECK Primary Care Unavailable JOSE CARMICHAELINDA C Attending Unavailable JESSICA CARMICHAELA C Consulting Unavailable AMOL, TRACI C Admitting Unavailable VÍCTOR, BECK Primary Care Unavailable AMOL, TRACI C Admitting Unavailable TRACI CARMICHAEL C Attending Unavailable NATALEE ., DR AVERY Admitting Unavailable HOY ., DR AVERY Attending Unavailable HOSailaja ., DR AVERY Consulting Unavailable QUINCY, DR ROGE Shoemaker Consulting Unavailable JOMAR, DR SON Azevedo Attending UnavailBECK Johnson Primary Care Unavailable JOMAR, DR SON Azevedo Consulting Unavaildario HADLEY, DR SON Azevedo Admitting Unavaildario WATSON ., TRPUTI MAKI Consulting Unavaildario EDDY, FERMÍN Consulting Unavailable ROGE GORDON Consulting Unavailable MARIETTA MARTEL Consulting Unavailable CLARA HE Consulting Unavailable GRMAGDY ., DR FARSHAD Rose Consulting Unavaila ble FAWWAD, SAN H Admitting Unavailable FAWWAD, SAN H Attending Unavailable NATALEE ., DR AVERY Consulting Unavailable CHERYL ., DR JOSHUA Rose Consulting Unavailable QUINCY, DR ROGE Shoemaker Consulting Unavailable RIVERA, DR JORGE Lopez Consulting Unavailable NADERER, DR BLAIRE Love Consulting Unavailable HAY ., DR CLAROS Consulting Unavailable SAMSA ., IJEOMA Consulting Unavailable FAWWAD, H Consulting Unavailable BROOKE COSTELLO Consulting Unavailable YOUNG, ROGE Consulting Unavailable ANTOINE, KERRI Consulting Unavailable CATRACHO LEWIS Consulting Unavailable BECK RENEE Primary Care Unavailable HOY ., DR AVERY Admitting Unavailable HOY ., DR AVERY Attending Unavailable HOY ., DR AVERY Consulting Unavailable TRACI CARMICHAEL Attending Unavailable MOUKARBELMARY LOU Attending Unavailable APLINGANTONIO Attending Unavailable APLINGANTONIO Attending Unavailable APLINGANTONIO Attending Unavailable APLINGANTONIO Referring Unavailable Unavailable Primary Care Provider UnavailKEELEY Lopez Referring Unavailable LEIGHTON HORVATH Attending Unavailabl e Allergies Allergy Classification Reported Allergen(s) Allergy Type Date of Onset Reaction(s) Facility (2 sources) Ciprofloxacin Drug Allergy 03-23-2022 [facility] Repository (2 sources) Dexamethasone; Translations: [DEXAMETHASONE] Drug Allergy 06-27-2023 [facility] [place] [facility] (2 sources) Erythromycin; Translations: [ERYTHROMYCIN BASE] Drug Allergy 06-27-2023 [facility] [place] [facility] (2 sources) Neomycin; Translations: [NEOMYCIN SULFATE] Drug Allergy 06-27-2023 [facility] [place] [facility] (2 sources) Polymyxin B; Translations: [POLYMYXIN B] Drug Allergy 06-27-2023 [facility] [place] [facility] (2 sources) Tobramycin; Translations: [TOBRAMYCIN] Drug Allergy 06-27-2023 [facility] [place] [facility] Medications Current Medications Medication Drug Class(es) Dates [...] 30 days. 0 Active polyethylene glycol 3350 91972 mg powder for oral solution (1 source) Osmotic Laxative polyethylene gl ycol (GLYCOLAX) 17 gram packet Take 17 g by mouth daily as needed (constipation). 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; Translations: [SENIOR CARE CURRENT USE OF ASPIRIN] Onset: 03-06-2023 Episodic Other aftercare (1 source) assisted (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 of non-steroidal anti-inflammatories (NSAID); Translations: [SENIOR CARE USE NSAID] Onset: 02-08-2023 Episodic Other connective [...] Onset: 04-05-2022 Episodic Other aftercare (1 source) assisted (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 of insulin; Translations: [SENIOR CARE CURRENT USE OF INSULIN] Onset: 04-05-2022 Episodic Other aftercare (1 source) assisted (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 of anticoagulants; Translations: [EXCELSIOR PICKER CURRNT USE ANTICOAGULANTS] Onset: 04-05-2022 Episodic Other [...] Sanders MD on 01/07/2024 3:35 AM Normal [facility] Office Visiton 09-20-2023 Follow-up visit [id number] Jennifer Tafoya elo Love 1940 F Date Provider Department Center 09/20/2023 MARY LOU F[facility] Family History Problem Relation Age of Onset Diabetes Sister Diabetes Brother Diabetes Maternal Grandfather Family Status - Relation Status Age at Sister Brother Maternal Grandfather Level of Service:88839 [place] OFFICE/OUTPATIENT ESTABLISHED MOD MDM 30-39 MIN Reason for Visit and Comments: Follow-up [717743] Normal [facility] CBC W MANUAL DIFFon 03-08-20 23 ANISOCYTOSIS 1+ Normal [facility] Comment on above: Performed By: #### C BCJERSON ####[facility] [address] [place] [address]Dr. Bhavani Barragan ATYPICAL LYMPH # Normal [facility] Comment on above: Performed By: #### C BCMAN ####[facility] G[address]qqoijc[address] [place] [address]Dr. Bhavani Barragan ATYPICAL LYMPH % Normal [facility] Comment on above: Performed By: #### C BCMAN ####[facility] Fqorrxfxuz[address] [place] [address]Dr. Bhavani Barragan BAND # 1.3 103/ul Critically high 0.0-0.3 [facility] Comment on above: Performed By: #### C BCMAN ####[facility] Scglzecfwq[address] [place] [address]Dr. Bhavani Barragan BAND % 4 % Normal 0-5 [facility] Comment on above: Performed By: #### C BCMAN ####[facility] Pyvyvqapxv[address] [place] [address]Dr. Bhavani Barragan BASOM # 0.00 103/ul Normal 0.00-0.10 [facility] Comment on above: Performed By: #### C BCJERSON ####[facility] Wtdmnwkcbx20[address] [place] [address]Dr. Bhavani Barragan BASOM % 0.0 % Critically low 0.2-2.0 [facility] Comment on above: Performed By: #### C BCJERSON ####[facility] Gwabjgfuzq[address] [place] [address]Dr. Bhavani Barragan BLAST # Normal [facility] Comment on above: Performed By: #### C BCJERSON ####[facility] Pliiebcepg[address] [place] [address]Dr. Bhavani Barragan BLAST % Normal [facility] Comment on above: Performed By: #### C OMID ####[facility] Skma[address] [place], [place] [address]Dr. Bhavani Barragan CORRECTED WBC Normal 4.0-11.[address] [facility] Comment on above: Performed By: #### C OMID ####[facility] [address] [place], [place] [address]Dr. Bhavani Barragan EOS # 0.00 103/ul Normal 0.00-0.70 [facility] Comment on above: Performed By: #### C OMID ####[facility] [address] [place], [place] [address]Dr. Bhavani Barragan EOS% 0.0 % Critically low 0.9-7.0 [facility] Comment on above: Performed By: #### C OMID ####[facility] Nsxyims[address] [place], [place] [address]Dr. Bhavani Barragan HCT 38.1 % Normal 36.0-48.0 [facility] Comment on above: Performed By: #### C OMID ####[facility] [address]fse[address] [place], [place] [address]Dr. Bhavani Barragan HGB 11.6 g/dl Critically low 12.0-16.0 [facility] Comment on above: Performed By: #### C OMID ####[facility] Mszuyq[address] [place], [place] [address]Dr. Bhavani Barragan LYMPHM # 1.58 103/ul Normal 1.20-3.80 [facility] Comment on above: Performed By: #### C OMID ####[facility] [address] [place] [id number]. Bhavani Barragan LYMPHM% 5.0 % Critically low 20.5-60.0 [facility] Comment on above: Performed By: #### C OMID ####[facility] Srrgxujspq[address] [place] [address]Dr. Bhavani Barragan MCH 29.7 pg Normal 26.7-34.0 [facility] Comment on above: Performed By: #### C OMID ####[facility] [address]ozaxqa[address] [place] [address]Dr. Bhavani Barragan MCHC 30.4 g/dl Normal 29.9-35.2 [facility] Comment on above: Performed By: #### Jany ANNE ####[facility] [address]tu[address] [place] [address]Dr. Bhavani Barragan MCV 97.7 fL Normal 81.0-99.0 [facility] Comment on above: Performed By: #### Jany ANNE ####[facility] Hfwgnwvwml[address] [place] [address]Dr. Bhavani Barragan METAMYELOCYTE # Normal [facility] Comment on above: Performed By: #### Jany ANNE ####[facility] Idjjwdkpys43[address] [place] [address]Dr. Bhavani Barragan METAMYELOCYTE % Normal [facility] Comment on above: Performed By: #### Jany ANNE ####[facility] Ltfylnycpr[address] [place] [address]Dr. Bhavani Barragan MONOM# 0.95 103/ul Critically high 0.30-0.80 [facility] Comment on above: Performed By: #### C OMID ####[facility] Siuidabvzf35[address] [place] [address]Dr. Bhavani Barragan MONOM% 3.0 % Normal 1.7-12.0 [facility] Comment on above: Performed By: #### C OMID ####[facility] Xpsacqdyyp5648 [place], [place] [address]Bl. Bhavani Barragan MPV 10.6 fL Normal 9.5-13.5 [facility] Comment on above: Performed By: #### C OMID ####[facility] Enatijqyyn0996 [place], [place] [address]Wh. Bhavani Barragan MYELOCYTE # Normal [facility] Comment on above: Performed By: #### C OMID ####[facility] K[address]vcbg1743 [place], [place] [address]Hr. Bhavani Barragan MYELOCYTE % Normal [facility] Comment on above: Performed By: #### C OMID ####[facility] Mfyytrtcfh[address] [place] [address]Dr. Bhavani Barragan NRBC Normal [facility] Comment on above: Performed By: #### C OMID ####[facility] Egxsccjddx12[address] [place] [address]Dr. Bhavani Barragan PLT 280 103/ul Normal 150-450 [facility] Comment on above: Performed By: #### C OMID ####[facility] Begphpxgmz8[address] [place] [address]Dr. Bhavani Barragan RBC 3.90 106/ul Critically low 4.20-5.40 [facility] Comment on above: Performed By: #### C OMID ####[facility] Cqvcnfrled25[address] [place] [address]Dr. Bhavani Barragan RDW 18.2 % Critically high 11.0-15.0 [facility] Comment on above: Performed By: #### C OMID ####[facility] Pcvwywfcdx6585 [place] [address]Dr. Bhavani Barragan SEG # 27.90 103/ul Critically high 1.40-6.50 [facility] Comment on above: Performed By: #### C OMID ####[facility] Oixdefckqd7[address] [place] [address]Dr. Bhavani Barragan SEG % 88.0 % Critically high 43.0-75.0 [facility] Comment on above: Performed By: #### C OMID ####[facility] Kspaictwqf66[address] [place] [address]Dr. Bhavani Barragan WBC 31.7 103/ul Critically high 4.0-11.0 [facility] Comment on above: Performed By: #### C OMID ####[facility] Efgkuqfxba56[address] [place] [address]Dr. Bhavani Barragan PERIPHERAL SMEARon 3 Pathologist Cyto stain Nom (Cvx/Vag) [ID] DR. AFTAB SCHAFER Normal [facility] Comment on above: Result Comment: Revi ew of peripheral smear reveals RBCs with anisocytosis. The platelets areadequate in number with normal morphology. There is leukocytosis withneutrophilia. The WBC morphology is unremarkable. No atypical lymphocytes orimmature blasts are seen. The findings are suggestive of a reactive process.Clinical correlation is recommended. Performed By: #### P ERSMR ####[facility] [address]vbtwf[address] [place] [address]Dr. Bhavani Barragan CBC W MANUAL DIFFon 03-01-20 23 ANISOCYTOSIS 1+ Normal [facility] Comment on above: Performed By: #### C OMID ####[facility] F[address]ldftaju[address] [place] [address]Dr. Bhavani Barragan ATYPICAL LYMPH # Normal [facility] Comment on above: Performed By: #### C OMID ####[facility] Mmpnpbzkrj2026 [place] [address]Dr. Bhavani Barragan ATYPICAL LYMPH % Normal [facility] Comment on above: Performed By: #### C OMID ####[facility] Mkhxvuovkt5260 [place] [address]Dr. Bhavani Barragan BAND # 1.8 103/ul Critically high 0.0-0.3 [facility] Comment on above: Performed By: #### C OMID ####[facility] Emxbkitlud5[address] [place] [address]Dr. Bhavani Barragan BAND % 5 % Normal 0-5 [facility] Comment on above: Performed By: #### C OMID ####[facility] Xdqlotpcoh1206 [place] [address]Dr. Bhavani Barragan BASOM # 0.00 103/ul Normal 0.00-0.10 [facility] Comment on above: Performed By: #### C BCMAN ####[facility] Rttgqlrttz2646 [place] [address]Dr. Bhavani Barragan BASOM % 0.0 % Critically low 0.2-2.0 [facility] Comment on above: Performed By: #### C BCMAN ####[facility] Ujcjsotais[address] [place] [address]Dr. Bhavani Barragan BLAST # Normal [facility] Comment on above: Performed By: #### C BCMAN ####[facility] Ibolmrscui[address] [place] [address]Dr. Bhavani Barragan BLAST % Normal [facility] Comment on above: Performed By: #### C BCJERSON ####[facility] [address]ir[address] [place], [place] [address]Dr. Bhavani Barragan CORRECTED WBC Normal 4.0-11.[address] [facility] Comment on above: Performed By: #### C BCJERSON ####[facility] Roeeqjpzur[address] [place] [address]Dr. Bhavani Barragan EOS # 0.00 103/ul Normal 0.00-0.70 [facility] Comment on above: Performed By: #### C BCMAN ####[facility] Kwnrzzubje[address] [place] [address]Dr. Bhavani Barragan EOS% 0.0 % Critically low 0.9-7.0 [facility] Comment on above: Performed By: #### C BCMAN ####[facility] Aeprkpztjz45[address] [place] [address]Dr. Bhavani Barragan HCT 32.6 % Critically low 36.0-48.0 [facility] Comment on above: Performed By: #### C BCMAN ####[facility] [address] [place], [place] [address]Dr. Bhavani Barragan HGB 10.0 g/dl Critically low 12.0-16.0 [facility] Comment on above: Performed By: #### Jany ANNE ####[facility] Qsuclwfjvo8924 [place] [address]Dr. Bhavani Barragan LYMPHM # 1.75 103/ul Normal 1.20-3.80 [facility] Comment on above: Performed By: #### Jany ANNE ####[facility] Oqcwrfgped5149 [place] [address]Dr. Bhavani Barragan LYMPHM% 5.0 % Critically low 20.5-60.[address] [facility] Comment on above: Performed By: #### C OMID ####[facility] Bwtdjlmmwc1196 [place] [address]Dr. Bhavani Barragan MCH 29.6 pg Normal 26.7-34.0 [facility] Comment on above: Performed By: #### Jany ANNE ####[facility] Zfskevqztc7399 [place] [address]Dr. Bhavani Barragan MCHC 30.7 g/dl Normal 29.9-35.2 [facility] Comment on above: Performed By: #### Jany ANNE ####[facility] Ywehybaeab75[address] [place] [address]Dr. Bhavani Barragan MCV 96.4 fL Normal 81.0-99.0 [facility] Comment on above: Performed By: #### Jany ANNE ####[facility] Tferxfjded6333 [place] [address]Dr. Bhavani Barragan METAMYELOCYTE # Normal [facility] Comment on above: Performed By: #### Jany ANNE ####[facility] Aacgsjjpzj2085 [place] [address]Dr. Bhavani Barragan METAMYELOCYTE % Normal [facility] Comment on above: Performed By: #### Jany ANNE ####[facility] Kdpxuicmpw8338 [place] [address]Dr. Bhavani Barragan MONOM# 0.70 103/ul Normal 0.30-0.80 [facility] Comment on above: Performed By: #### Jany ANNE ####[facility] Qryabmbjbb22[address] [place] [address]Dr. Bhavani Barragan MONOM% 2.0 % Normal 1.7-12.0 [facility] Comment on above: Performed By: #### C OMID ####[facility] Cakrxwtpdz28[address] [place] [address]Dr. Bhavani Barragan MPV 9.8 fL Normal 9.5-13.5 [facility] Comment on above: Performed By: #### C OMID ####[facility] Pnoyhuwpdb0679 [place] [address]Dr. Bhavani Barragan MYELOCYTE # Normal [facility] Comment on above: Performed By: #### C OMID ####[facility] Rqlxdlmpbf1713 [place] [address]Dr. Bhavani Barragan MYELOCYTE % Normal [facility] Comment on above: Performed By: #### C OMID ####[facility] Xnjhlriakh70[address] [place] [address]Dr. Bhavani Barragan NRBC Normal [facility] Comment on above: Performed By: #### C OMID ####[facility] Btndsukgmk4448 [place] [address]Dr. Bhavani Barragan PLT 382 103/ul Normal 150-450 [facility] Comment on above: Performed By: #### C OMID ####[facility] Mjshoccsbt4585 [place] [address]Dr. Bhavani Barragan RBC 3.38 106/ul Critically low 4.20-5.40 [facility] Comment on above: Performed By: #### C OMID ####[facility] Vbpahukwmn4901 [place] [address]Dr. Bhavani Barragan RDW 17.7 % Critically high 11.0-15.0 [facility] Comment on above: Performed By: #### C OMID ####[facility] Nwsbrfqlyx1639 [place] [address]Dr. Bhavani Barragan SEG # 30.80 103/ul Critically high 1.40-6.50 [facility] [place] [facility] Comment on above: Performed By: #### C OMID ####[facility] Qbyvjxaplx7655 [place] [address]Dr. Bhavani Barragan SEG % 88.0 % Critically high 43.0-75.0 [facility] Comment on above: Performed By: #### C OMID ####[facility] Ybwsbommfj9332 [place] [address]Dr. Bhavani Barragan WBC 35.0 103/ul Critically high 4.0-11.0 [facility] Comment on above: Performed By: #### C OMID ####[facility] Uxiuqftxwi27[address] [place] [address]Dr. Bhavani Barragan PROF 14(COMP METB)on 023 Albumin [Mass/Vol] 2.6 g/dL Critically low 3.4-5.0 [facility] Comment on above: Performed By: #### C MP, TSH ####[facility] Ayrhnyckza[address] [place] [address]Dr. Bhavani Barragan Albumin/Globulin [Mass ratio] 0.6 {ratio} Normal [facility] Comment on above: Performed By: #### C MP, TSH ####[facility] Nlqvkikedf5215 [place] [address]Dr. Bhavani Barragan ALP [Catalytic activity/Vol] 117 U/L Critically high 46-116 [facility] Comment on above: Performed By: #### C MP, TSH ####[facility] Suizbxrpse4730 [place] [address]Dr. Bhavani Barragan ALT [Catalytic activity/Vol] 11 U/L Critically low 14-59 [facility] Comment on above: Performed By: #### C MP, TSH ####[facility] Crthkcdqam0193 [place] [address]Dr. Bhavani Barragan Anion gap [Moles/Vol] 13.0 mmol/L Normal [facility] Comment on above: Performed By: #### C MP, TSH ####[facility] Tgrdadkgla8449 [place] [address]Dr. Bhavani Barragan AST [Catalytic activity/Vol] 19 U/L Normal 15-37 [facility] Comment on above: Performed By: #### C MP, TSH ####[facility] Miyipekpxn7614 [place] [address]Dr. Bhavani Barragan Bilirubin [Mass/Vol] 0.4 mg/dL Normal 0.2-1.0 [facility] Comment on above: Performed By: #### C MP, TSH ####[facility] [address]qnvlnhq[address] [place], [place] [address]Dr. Bhavani Barragan Calcium [Mass/Vol] 8.9 mg/dL Normal 8.5-10.1 [facility] Comment on above: Performed By: #### C MP, TSH ####[facility] Eqynyvomjr8[address] [place] [address]Dr. Bhavani Barragan Chloride [Moles/Vol] 103 mmol/L Normal 98-107 [facility] Comment on above: Performed By: #### C MP, TSH ####[facility] [address]mlcdejx[address] [place], [place] [address]Dr. Bhavani Barragan CO2 [Moles/Vol] 26.8 mmol/L Normal 21.0-32.0 [facility] Comment on above: Performed By: #### C MP, TSH ####[facility] K[address]kaojoek[address] [place], [place] [address]Dr. Bhavani Barragan Creatinine [Mass/Vol] 1.44 mg/dL Critically high 0.55-1.02 [facility] Comment on above: Performed By: #### C MP, TSH ####[facility] Zfwtgexiy[address] [place], [place] [address]Dr. Bhavani Barragan EGFR-AF ALBANIAN 42 mL/min/1.73m2 Critically low >=60 [facility] Comment on above: Performed By: #### C MP, TSH ####[facility] Z[address]fpwjlqk[address] [place], [place] [address]Dr. Bhavani Barragan EGFR-NON AF ALBANIAN 35 mL/min/1.73m2 Critically low >=60 [facility] Comment on above: Performed By: #### C MP, TSH ####[facility] Rbqtq[address]mlb[address] [place], [place] [address]Dr. Bhavani Barragan Globulin (S) [Mass/Vol] 4.4 g/dL Normal [facility] Comment on above: Performed By: #### C MP, TSH ####[facility] Nantubcbhg8768 [place] [id number]. Bhavani Barragan Glucose [Mass/Vol] 90 mg/dL Normal 74-[address] [facility] Comment on above: Performed By: #### C MP, TSH ####[facility] Uffdynehbo2243 [place] [address]Dr. Bhavani Barragan Potassium [Moles/Vol] 4.8 mmol/L Normal 3.5-5.1 [facility] Comment on above: Performed By: #### C MP, TSH ####[facility] Posfossdua7268 [place] [address]Dr. Bhavani Barragan Protein [Mass/Vol] 7.0 g/dL Normal 6.4-8.[address] [facility] Comment on above: Performed By: #### C MP, TSH ####[facility] Xmylylkqud[address] [place], [place] [address]Dr. Bhavani Barragan Sodium [Moles/Vol] 138 mmol/L Normal 136-[address] [facility] Comment on above: Performed By: #### C MP, TSH ####[facility] [address]akttezocy[address] [place], [place] [address]Dr. Bhavani Barragan Urea nitrogen [Mass/Vol] 32.0 mg/dL Critically high 7.0-18.0 [facility] Comment on above: Performed By: #### C MP, TSH ####[facility] Ifrzwbmaik[address] [place], [place] [address]Dr. Bhavani Barragan Urea nitrogen/Creatinine [Mass ratio] 22.2 mg/mg Normal [facility] Comment on above: Performed By: #### C MP, TSH ####[facility] [address]pan[address] [place] [address]Dr. Bhavani Barragan TSHon 03-01-2023 TSH 3.630 uIU/mL Normal 0.358-3.[address] [facility] Comment on above: Performed By: #### C MP, TSH ####[facility] Jwrmzagbgk[address] [place], [place] [address]Dr. Bhavani Barragan CULTURE URINEon 02-09-2023 CULTURE URINE Normal The [facility] Comment on above: Performed By: #### U RCX ####[facility] [address]fobje[address] [place] [address]Dr. Bhavani Barragan CBC W MANUAL DIFFon 02-07-20 ANISOCYTOSIS 1+ Normal [facility] Comment on above: Performed By: #### C BCMAN ####[facility] K[address]hikd[address] [place] [address]Dr. Bhavani Barragan ATYPICAL LYMPH # Normal [facility] Comment on above: Performed By: #### C BCMAN ####[facility] [address]ezyw[address]ih[address] [place], [place] [address]Dr. Bhavani Barragan ATYPICAL LYMPH % Normal [facility] Comment on above: Performed By: #### C BCMAN ####[facility] Josuovzmst[address] [place], [place] [address]Dr. Jayceeroxi Barragan BAND # 1.2 103/ul Critically high 0.0-0.3 [facility] Comment on above: Performed By: #### C BCMAN ####[facility] Glwxjjksdl[address] [place], [place] [address]Dr. Bhavani Laurel BAND % 5 % Normal 0-5 [facility] Comment on above: Performed By: #### C BCMAN ####[facility] Rlztivzztt[address] [place], [place] [address]Dr. Bhavani Barragan BASOM # 0.00 103/ul Normal 0.00-0.10 [facility] Comment on above: Performed By: #### C BCMAN ####[facility] Felqjsosnk[address] [place], [place] [address]Dr. Bhavani Laurel BASOM % 0.0 % Critically low 0.2-2.0 [facility] Comment on above: Performed By: #### C BCMAN ####[facility] Ctldjkrijm[address] [place], [place] [address]Dr. Bhavani Barragan BLAST # Normal [facility] Comment on above: Performed By: #### C BCMAN ####[facility] Ymaklxxteq[address] [place], [place] [address]Dr. Bhavani Barragan BLAST % Normal [facility] Comment on above: Performed By: #### C OMID ####[facility] Ydmzxdypue[address] [place] [id number]. Bhavani Barragan CORRECTED WBC Normal 4.0-11.0 [facility] Comment on above: Performed By: #### C OMID ####[facility] Atg[address]kiufy[address] [place] [address]Dr. Bhavani Barragan EOS # 0.00 103/ul Normal 0.00-0.70 [facility] Comment on above: Performed By: #### C OMID ####[facility] Cmhfxmifhz92[address] [place] [address]Dr. Bhavani Barragan EOS% 0.0 % Critically low 0.9-7.0 [facility] Comment on above: Performed By: #### C OMID ####[facility] Qriirhnkiw5[address] [place] [address]Dr. Bhavani Barragan HCT 39.3 % Normal 36.0-48.0 [facility] Comment on above: Performed By: #### C OMID ####[facility] Vfdpwagdxz92[address] [place] [address]Dr. Bhavani Barragan HGB 12.6 g/dl Normal 12.0-16.0 [facility] Comment on above: Performed By: #### C OMID ####[facility] Tkwhbroznf6[address] [place] [address]Dr. Bhavani Barragan LYMPHM # 2.11 103/ul Normal 1.20-3.80 [facility] Comment on above: Performed By: #### C OMID ####[facility] Clwpqyybgv022[address] [place] [address]Dr. Bhavani Barragan LYMPHM% 9.0 % Critically low 20.5-60.0 [facility] Comment on above: Performed By: #### C OMID ####[facility] Ntwnojonfi48[address] [place] [address]Dr. Bhavani Barragan MCH 29.6 pg Normal 26.7-34.0 [facility] Comment on above: Performed By: #### C OMID ####[facility] Kgduuhfpvm5[address] [place] [address]Dr. Bhavani Barragan MCHC 32.1 g/dl Normal 29.9-35.2 [facility] Comment on above: Performed By: #### Jany ANNE ####[facility] Kuvvtsfrvt69[address] [place] [address]Dr. Bhavani Barragan MCV 92.3 fL Normal 81.0-99.0 [facility] Comment on above: Performed By: #### C OMID ####[facility] Hoivsjkzqo[address] [place] [address]Dr. hBavani Barragan METAMYELOCYTE # Normal [facility] Comment on above: Performed By: #### Jany ANNE ####[facility] Lhwadeionp65[address] [place] [address]Dr. Bhavani Barragan METAMYELOCYTE % Normal [facility] Comment on above: Performed By: #### Jany ANNE ####[facility] Xrtibskcng[address] [place], [place] [address]Dr. Bhavani Barragan MONOM# 0.94 103/ul Critically high 0.30-0.80 [facility] Comment on above: Performed By: #### Jany ANNE ####[facility] Mkiptfnkch[address] [place], [place] [address]Dr. Bhavani Barragan MONOM% 4.0 % Normal 1.7-12.0 [facility] Comment on above: Performed By: #### Jany ANNE ####[facility] Cncorsvutw[address] [place] [address]Dr. Bhavani Barragan MPV 11.0 fL Normal 9.5-13.5 [facility] Comment on above: Performed By: #### Jany ANNE ####[facility] [address]zdquhfcw[address] [place], [place] [address]Dr. Bhavani Barragan MYELOCYTE # Normal [facility] Comment on above: Performed By: #### Jany ANNE ####[facility] Yphtiwcehk[address] [place], [place] [address]Dr. Bhavani Barragan MYELOCYTE % Normal [facility] Comment on above: Performed By: #### C OMID ####[facility] Hzzmagptlm2268 [place], [place] [address]Am. Bhavani Barragan NRBC Normal [facility] Comment on above: Performed By: #### C OMID ####[facility] Brrckufzfy23[address] [place] [address]Dr. Bhavani Barragan PLT 198 103/ul Normal 150-450 [facility] Comment on above: Performed By: #### C OMID ####[facility] Igpucspfqp10[address] [place] [address]Dr. Bhavani Barragan RBC 4.26 106/ul Normal 4.20-5.40 [facility] Comment on above: Performed By: #### C OMID ####[facility] Ffakbopfzb[address] [place] [address]Dr. Bhavani Barragan RDW 16.3 % Critically high 11.0-15.0 [facility] Comment on above: Performed By: #### C OMID ####[facility] Ihmhxmjleq44[address] [place] [address]Dr. Bhavani Barragan SEG # 19.19 103/ul Critically high 1.40-6.50 [facility] Comment on above: Performed By: #### C OMID ####[facility] Ebpknfbxnb2334 [place] [address]Dr. Bhavani Barragan SEG % 82.0 % Critically high 43.0-75.0 [facility] Comment on above: Performed By: #### Jany ANNE ####[facility] Vqrdcchylt00[address] [place] [address]Dr. Bhavani Barragan WBC 23.4 103/ul Critically high 4.0-11.0 [facility] Comment on above: Performed By: #### C OMID ####[facility] Lmvocvcvxe[address] [place], [place] [address]Dr. Bhavani Barragan CT LSPINE WO CONon 3 CT LSPINE WO CON Normal [facility] CT PELVIS WO CONon 3 CT PELVIS WO CON Normal [facility] CULTURE BLOODon 02-06-2023 Microscopic examination of blood, culture Culture Observations: NO GROWTH AT 5 DAYS. Normal [facility] Comment on above: Performed By: #### B LDCX2 ####[facility] Txtprjpcmj[address] [place] [address]Dr. Jayceeroxi Barragan Performed By: #### B LDCX1 ####[facility] Hklqqzlylv86[address] [place] [address]Dr. Bhavani Barragan Covid-19 PCR (CVDTB)on 01-17 SARS-CoV-2 (COVID-19) RNA MATTHEW+probe Ql (Unsp spec) Not detected Normal NOT DETECTED [facility] Comment on above: Result Comment: When [...] for this test is supported by the Orthodontist Vice President of Health and Human Service's declaration that [...] be used). Performed By: #### C VDTBH ####[facility] Ysczskachg[address] [place] [address]Dr. Bhavani Laurel ER URINE PROFILEon 3 Bilirubin Ql (U) Negative Normal NEGATIVE [facility] Comment on above: Performed By: #### U MICRO, ERUR ####[facility] Oqcxjgwdif[address] [place], [place] [address]Dr. Bhavani Barragan Clarity (U) SL CLOUDY Abnormal CLEAR [facility] Comment on above: Performed By: #### U MICRO, ERUR ####[facility] Mtkzdxrosh[address] [place], [place] [address]Dr. Yilan Barragan Color (U) LT. YELLOW Normal YELLOW [facility] Comment on above: Performed By: #### U MICRO, ERUR ####[facility] Uchbeggbtf[address] [place], [place] [address]Dr. Bhavani HSUD A micrscopic examination will be performed if indicated. Normal [facility] Comment on above: Performed By: #### U MICRO, ERUR ####[facility] Wbarzaekbp[address] [place], [place] [address]Dr. Bhavani Barragan Glucose Ql (U) Negative Normal NEGATIVE [facility] Comment on above: Performed By: #### U MICRO, ERUR ####[facility] Npcnuqmvpe[address] [place], [place] [address]Dr. Bhavani Barragan Hemoglobin Ql (U) TRACE-INTACT Abnormal NEGATIVE [facility] Comment on above: Performed By: #### U MICRO, ERUR ####[facility] Dlwrjpcvzp[address] [place], [place] [address]Dr. Bhavani Barragan Ketones Ql (U) Negative Normal NEGATIVE [facility] Comment on above: Performed By: #### U MICRO, ERUR ####[facility] Buqvceltpf[address] [place], [place] [address]Dr. Bhavani Barragan LEUKOCYTES SMALL Abnormal NEGATIVE [facility] Comment on above: Performed By: #### U MICRO, ERUR ####[facility] Adnxskedrp[address] [place], [place] [address]Dr. Bhavani Barragan Nitrite Ql (U) Positive Abnormal NEGATIVE [facility] Comment on above: Performed By: #### U MICRO, ERUR ####[facility] [address]rbhkqthp[address] [place], [place] [address]Dr. Bhavani Barragan pH (U) 6.0 [pH] Normal 5-9 [facility] Comment on above: Performed By: #### U MICRO, ERUR ####[facility] Ybhgdfouny[address] [place], [place] [address]Dr. Bhavani Barragan Protein (U) [Mass/Vol] 30 mg/dL Abnormal NEGATIVE/ TRACE [facility] Comment on above: Performed By: #### U MICRO, ERUR ####[facility] Ojsyahovgt[address] [place] [address]Dr. Bhavani Barragan SPEC GRAVITY 1.020 Normal 1.005-<=1.02 5 [facility] Comment on above: Performed By: #### U MICRO, ERUR ####[facility] Kuxnrsrblk6[address] [place] [address]Dr. Bhavani Barragan UR MICRO IND INDICATED Normal [facility] Comment on above: Performed By: #### U MICRO, ERUR ####[facility] Suqgxsgpal68[address] [place] [address]Dr. Bhavani Barragan Urobilinogen Qn (U) 0.2 {Ridge'U}/dL Normal 0.2 - 1. 0 [facility] Comment on above: Performed By: #### U MICRO, ERUR ####[facility] Nftsvhvgnf67[address] [place] [address]Dr. Bhavani Barragan LACTATE/LACTIC ACIDon 2022 Lactate [Moles/Vol] 1.5 mmol/L Normal 0.4-2.0 [facility] Comment on above: Performed By: #### L ACT ####[facility] Immlcgszyj[address] [place], [place] [address]Dr. Bhavani Barragan PROF CHEM 8 (BAS METB)on Anion gap [Moles/Vol] 14.7 mmol/L Normal [facility] Comment on above: Performed By: #### B MP ####[facility] Emhyinbnwk[address] [place] [address]Dr. Bhavani Barragan Calcium [Mass/Vol] 8.2 mg/dL Critically low 8.5-10.1 [facility] e [facility] Comment on above: Performed By: #### B MP ####[facility] Vmbqfruybv13[address] [place] [address]Dr. Bhavani Barragan Chloride [Moles/Vol] 103 mmol/L Normal 98-107 [facility] Comment on above: Performed By: #### B MP ####[facility] Mcofeyydum220[address] [place] [address]Dr. Bhavani Barragan CO2 [Moles/Vol] 22.4 mmol/L Normal 21.0-32.0 [facility] Comment on above: Performed By: #### B MP ####[facility] Nlbtquacsd3598 [place] [address]Dr. Jayceeroxi Laurel Creatinine [Mass/Vol] 1.39 mg/dL Critically high 0.55-1.02 [facility] Comment on above: Performed By: #### B MP ####[facility] Byrekvumph15[address] [place] [address]Dr. Bhavani Barragan EGFR-AF ALBANIAN 44 mL/min/1.73m2 Critically low >=60 [facility] Comment on above: Performed By: #### B MP ####[facility] Nkeanmwxfo65[address] [place] [address]Dr. Bhavani Barragan EGFR-NON AF ALBANIAN 36 mL/min/1.73m2 Critically low >=60 [facility] Comment on above: Performed By: #### B MP ####[facility] S[address]voqjvklf[address] [place], [place] [address]Dr. Bhavani Barragan Glucose [Mass/Vol] 161 mg/dL Critically high 74-106 [facility] Comment on above: Performed By: #### B MP ####[facility] Bzfcgoxjiv[address] [place], [place] [address]Dr. Bhavani Barragan Potassium [Moles/Vol] 4.1 mmol/L Normal 3.5-5.1 [facility] Comment on above: Performed By: #### B MP ####[facility] Fflnrkqahm[address] [place], [place] [address]Dr. Bhavani Barragan Sodium [Moles/Vol] 136 mmol/L Normal 136-145 [facility] Comment on above: Performed By: #### B MP ####[facility] Xpmtfmefse[address] [place], [place] [address]Dr. Bhavani Barragan Urea nitrogen [Mass/Vol] 23.0 mg/dL Critically high 7.0-18.0 [facility] Comment on above: Performed By: #### B MP ####[facility] [address]uc[address]ogrcaw[address] [place], [place] [address]Dr. Bhavani Barragan Urea nitrogen/Creatinine [Mass ratio] 16.5 mg/mg Normal [facility] Comment on above: Performed By: #### B MP ####[facility] Fmtdgqxptz[address] [place], [place] [address]Dr. Bhavani Barragan PROTIMEon 02-06-2023 INR Coag (PPP) [Relative time] 1.12 {INR} Normal [facility] Comment on above: Performed By: #### P TT, PT ####[facility] Lanjshseqp[address] [place], [place] [address]Dr. Bhavani Barragan INR GUIDELINES SEE BELOW Normal [facility] Comment on above: Result Comment: WALKER RED INR: 2.0 - 3.0 CONDITIONS NOT LISTED BELOW 2.5 - 3.5 FOR PROSTHETIC HEART VALVE REPLACEMENT 2.5 - 3.5 RECURRENT THROMBOSIS Performed By: #### P TT, PT ####[facility] [address]wjnnagbg[address] [place], [place] [address]Dr. Bhavani Barragan PT Coag (PPP) [Time] 11.8 s Critically high 9.0-11.6 [facility] Comment on above: Performed By: #### P TT, PT ####[facility] Sbpvuuahcn[address] [place], [place] [address]Dr. Bhavani Barragan PTTon 02-06-2023 aPTT Coag (Bld) [Time] 23.8 s Normal 22.3-36.2 [facility] Comment on above: Performed By: #### P TT, PT ####[facility] Zhlsjhzagl[address] [place], [place] [address]Dr. Bhavani Barragan URINE MICROSCOPIC ONLYon BACTERIA LARGE Abnormal NONE SEEN [facility] Comment on above: Performed By: #### U MICRO, ERUR ####[facility] Tykwyffzyf[address] [place], [place] [address]Dr. Bhavani Barragan Bacteria identified Cx Nom (U) INDICATED Normal [facility] Comment on above: Performed By: #### U MICRO, ERUR ####[facility] Ndjagnpien[address] [place], [place] [address]Dr. Bhavani Barragan CAST NONE SEEN Normal NONE SEEN [facility] Comment on above: Performed By: #### U MICRO, ERUR ####[facility] W[address]ookvesn[address] [place] [address]Dr. Bhavani Barragan Crystals LM Nom (Urine sed) NONE SEEN Normal NONE SEEN [facility] Comment on above: Performed By: #### U MICRO, ERUR ####[facility] Rktwzimlyn5354 [place] [address]Dr. Bhavani Barragan Epithelial cells LM Ql (Urine sed) RARE Normal NONE SEEN /RARE [facility] Comment on above: Performed By: #### U MICRO, ERUR ####[facility] Rigwmvqtqe30[address] [place] [address]Dr. Bhavani Barragan MUCOUS NONE SEEN Normal NONE SEEN [facility] Comment on above: Performed By: #### U MICRO, ERUR ####[facility] Oqsygfmypf9[address] [place] [address]Dr. Bhavani Barragan RBC 0-2 Normal 0-2 [facility] Comment on above: Performed By: #### U MICRO, ERUR ####[facility] Bmpsapypvx36[address] [place] [address]Dr. Bhavani Barragan WBC 10-20 Abnormal NONE SEEN [facility] Comment on above: Performed By: #### U MICRO, ERUR ####[facility] Bigwdxymsp[address] [place] [address]Dr. Bhavani Barragan XR CHEST 1 Von 02-06-2023 XR CHEST 1 V Normal [facility] XR FEMUR RTon 02-06-2023 XR FEMUR RT Normal [facility] Orders Onlyon 01-22-2023 Orders Only [id number] Jennifer Tafoya 1940 F Date Provider [facility] Family History Problem Relation Age of Onset Diabetes Sister Diabetes Brother Diabetes Maternal Grandfather Family Status - Relation Status Age at Sister Brother Maternal Grandfather Normal [facility] CBC AUTO DIFFon 01-18-2023 BASO # 0.1 103/ul Normal 0.0-0.1 [facility] Comment on above: Performed By: #### C BC ####[facility] Mktocmjymf[address] [place] [address]Dr. Bhavani Barragan Basophils/100 WBC (Bld) 0.7 % Normal 0.2-2.0 [facility] Comment on above: Performed By: #### C BC ####[facility] Fgebfubcby340[address] [place] [address]Dr. Bhavani Barragan EO # 0.0 103/ul Normal 0.0-0.7 [facility] Comment on above: Performed By: #### C BC ####[facility] K[address]wepyutp[address] [place] [address]Dr. Bhavani Barragan Eosinophils/100 WBC (Bld) 0.2 % Critically low 0.9-7.0 [facility] Comment on above: Performed By: #### C BC ####[facility] Mhpnadrnmm[address] [place], [place] [address]Dr. Bhavani Barragan Erythrocyte distribution width (RBC) [Ratio] 16.4 % Critically high 11.0-15.0 [facility] Comment on above: Performed By: #### C BC ####[facility] Yyspc[address]wgv[address] [place], [place] [address]Dr. Bhavani Barragan Hematocrit (Bld) [Volume fraction] 41.5 % Normal 36.0-48.0 [facility] Comment on above: Performed By: #### C BC ####[facility] Febwsdeank[address] [place], [place] [address]Dr. Bhavani Barragan Hemoglobin (Bld) [Mass/Vol] 13.0 g/dL Normal 12.0-16.0 [facility] Comment on above: Performed By: #### C BC ####[facility] Vgbrsmwhoc[address] [place] [address]Dr. Bhavani Barragan IG # 0.24 10e3/ul Critically high 0.00-0.03 [facility] Comment on above: Performed By: #### C BC ####[facility] [address]ywrlebsws[address] [place], [place] [address]Dr. Bhavani Barragan IG % 1.3 % Critically high 0.0-0.5 [facility] Comment on above: Performed By: #### C BC ####[facility] Feclxufdvh4624 [place], [place] [address]Db. Bhavani Barragan LYMPH # 1.5 103/ul Normal 1.2-3.8 [facility] Comment on above: Performed By: #### C BC ####[facility] Mjeyvakgun9043 [place], [place] [address]Tz. Bhavani Barragan Lymphocytes/100 WBC (Bld) 8.1 % Critically low 20.5-60.0 [facility] Comment on above: Performed By: #### C BC ####[facility] Vnzblhasuv8183 [place], [place] [address]Tp. Bhavani Laurel MANUAL DIFF REQ NO Normal [facility] Comment on above: Performed By: #### C BC ####[facility] Nwmjuhqvyr8079 [place], [place] [address]Ia. Bhavani Laurel MCH (RBC) [Entitic mass] 28.9 pg Normal 26.7-34.0 [facility] Comment on above: Performed By: #### C BC ####[facility] Nzbbycrgxj13[address] [place] [address]Dr. Bhavani Barragan MCHC (RBC) [Mass/Vol] 31.3 g/dL Normal 29.9-35.2 [facility] Comment on above: Performed By: #### C BC ####[facility] Tveiyhdnja1673 [place], [place] [address]Wm. Bhavani Barraagn MCV (RBC) [Entitic vol] 92.2 fL Normal 81.0-99.0 [facility] Comment on above: Performed By: #### C BC ####[facility] Wexkixmoka[address] [place] [address]Dr. Bhavani Barragan MONO # 0.2 103/ul Critically low 0.3-0.8 [facility] Comment on above: Performed By: #### C BC ####[facility] Lafnyayzja7196 [place], [place] [address]Tp. Bhavani Laurel Monocytes/100 WBC (Bld) 1.3 % Critically low 1.7-12.0 [facility] Comment on above: Performed By: #### C BC ####[facility] Zpktfyushp75[address] [place] [address]Dr. Bhavani Barragan NEUT # 16.0 103/ul Critically high 1.4-6.5 [facility] Comment on above: Performed By: #### C BC ####[facility] Dxnnnnrdgs6436 [place] [address]Dr. Bhavani Barragan Neutrophils/100 WBC (Bld) 88.4 % Critically high 43.0-75.0 [facility] Comment on above: Performed By: #### C BC ####[facility] Nsiuhalfgz[address] [place] [address]Dr. Bhavani Barragan Platelet mean volume (Bld) [Entitic vol] 12.1 fL Normal 9.5-13.5 [facility] Comment on above: Performed By: #### C BC ####[facility] Giziwfzppz6[address] [place] [address]Dr. Bhavani Barragan PLT 170 103/ul Normal 150-450 [facility] Comment on above: Performed By: #### C BC ####[facility] Bwrlshbeio[address] [place] [address]Dr. Bhavani Barragan RBC 4.50 106/ul Normal 4.20-5.40 [facility] Comment on above: Performed By: #### C BC ####[facility] Vwndaqunhm85[address] [place] [address]Dr. Bhavani Barragan WBC 18.1 103/ul Critically high 4.0-11.0 [facility] Comment on above: Performed By: #### C BC ####[facility] Cmzgzuinkq5[address] [place] [address]Dr. Bhavani Barragan ECHOCARDIO M/2D COMPLETEon 0 01-18-2023 ECHOCARDIO M/2D COMPLETE Normal [facility] Office Visiton 12-25-2022 Follow-up visit [id number] Jennifer Tafoya 1940 F Date Provider Department Center 12/25/2022 [facility] L[facility] Family History Problem Relation Age of Onset Diabetes Sister Diabetes Brother Diabetes Maternal Grandfather Family Status - Relation Status Age at Sister Brother Maternal Grandfather Level of Service:[address]771 [place] OFFICE/OUTPATIENT ESTABLISHED MOD MDM 30-39 MIN Reason for Visit and Comments: Atrial Fibrillation [80] Normal [facility] Endoscopy Reporton Endoscopy Report MR#: [id number] [facility] Pt. Name: María [facility] [...] Barillas M.D. Date Trans: 06/27/2022 03:26 A/erik [id number] cc: Bennie Albright M.D. [address], [place] [address] [facility] ABDOMEN 1 [facility] 06-26-2022 ABDOMEN 1 [facility] Department of Radiology [address] [place] [id number] ======== Patient Name: MARÍA ELENA TAFOYA [...] identified. Electronically signed: Roge Bah. Transcribed by: [email or web address], User Resident: Electronically Signed by: ROGE BAH @ 06/26/2022 11:52 AM Normal [facility] Comment on above: Order Comment: Check Stent Position, NO ERCPon 06-26-2022 ERCP [facility] Department of Radiology [address] [place] [id number] ======== Patient Name: MARÍA ELENA TAFOYA : 1940 Sex: F Age: Race: White Pt. Location: [facility] Patient Status: Ordered Date: 06/26/2022 5:00:00 AM [...] details. Electronically signed: FARSHAD SILVA. Transcribed by: [email or web address], User Resident: Electronically Signed by: FARSHAD SILVA @ 06/27/2022 09:15 AM Normal [facility] Comment on above: Order Comment: , [place] ointment Date: 06/26/2022 , Appointment Time: 1015 , Appointment Date: 06/26/2022 , Appointment Time: 1015 , , , Ordering Provider - ELIU BRAUN MD , POC GLUCOSE LABon 06-26-2022 Glucose [Mass/Vol] 121 mg/dL High 70-100 [facility] Comment on above: Performed By: #### 8 5499 #### [facility] [address] [facility] [place] [address], [facility] Glucose [Mass/Vol] 116 mg/dL High 70-100 [facility] Comment on above: Performed By: #### 8 5499 #### [facility] [address] POC SARS COV2 IDon 2 SARS-CoV-2 (COVID-19) RNA MATTHEW+probe Ql (Unsp spec) Negative Normal NEGATIVE [facility] Comment on above: Result Comment: ID [...] Accreditation. Performed By: #### 8 5499 #### [facility] [address] [place] [address], [facility] XR MODIFIED BARIUM SWALLOWon 05-08-2022 XR MODIFIED BARIUM SWALLOW Normal [facility] POC GLUCOSE LABon 04-16-2022 Glucose [Mass/Vol] 103 mg/dL High 70-100 [facility] Comment on above: Performed By: #### 8 5499 ####[facility] POC GLUCOSE LABon 04-15-2022 Glucose [Mass/Vol] 112 mg/dL High 70-100 [facility] Comment on above: Performed By: #### 8 5499 #### [facility] [address] [place] [address], [facility] Glucose [Mass/Vol] 131 mg/dL High 70-100 [facility] Comment on above: Performed By: #### 8 5499 #### [facility] [address] [place] [address], [place] Glucose [Mass/Vol] 122 mg/dL High 70-100 [facility] Comment on above: Performed By: #### 5 0608 #### [facility] [address] [place] [address], [place] Glucose [Mass/Vol] 118 mg/dL High 70-100 [facility] Comment on above: Performed By: #### 8 5499 #### [facility] [address] [place] [address], [place] BASIC METABOLIC PANELon 05-2 Calcium [Mass/Vol] 8.1 mg/dL Low 8.6-10.3 [facility] Comment on above: Order Comment: No: D o not add to previous draw Performed By: #### 2 2706 #### [facility] [address] [place] [address], [place] Chloride [Moles/Vol] 104 mmol/L Normal 98-107 [facility] Comment on above: Order Comment: No: D o not add to previous draw Performed By: #### 2 2706 #### [facility] [address] [place] [address], [place] CO2 [Moles/Vol] 27 mmol/L Normal 21-[address] [facility] Comment on above: Order Comment: No: D o not add to previous draw Performed By: #### 2 2706 #### [facility] [address] [place] [address], [place] Creatinine [Mass/Vol] 1.34 mg/dL High 0.60-1.20 [facility] Comment on above: Order Comment: No: D o not add to previous draw Performed By: #### 2 4376 #### [facility] [address] [place] [address], [place] eGFR- 46 ml/min/1.73sq m Abnormal >60 The [facility] Comment on above: Order Comment: No: D o not add to previous draw Result Comment: Calc ulation may not be valid for patients over 70 years Performed By: #### 2 2706 #### [facility] [address] [place] [address], [facility] eGFR- non- 38 ml/min/1.73sq m Abnormal >60 [facility] Comment on above: Order Comment: No: D o not add to previous draw Result Comment: Calc ulation may not be valid for patients over 70 years Performed By: #### 2 2706 #### [facility] [address] [place] [address], [place] Glucose [Mass/Vol] 106 mg/dL High 70-100 [facility] Comment on above: Order Comment: No: D o not add to previous draw Performed By: #### 2 2706 #### [facility] [address] [place] [address], [place] Potassium [Moles/Vol] 4.9 mmol/L Normal 3.5-5.1 [facility] Comment on above: Order Comment: No: D o not add to previous draw Performed By: #### 2 2706 #### [facility] [address] [place] [address], [place] Sodium [Moles/Vol] 135 mmol/L Low 136-145 [facility] Comment on above: Order Comment: No: D o not add to previous draw Performed By: #### 2 2706 #### [facility] [address] [place] [address], [place] Urea nitrogen [Mass/Vol] 22 mg/dL Normal 7-25 [facility] Comment on above: Order Comment: No: D o not add to previous draw Performed By: #### 2 2706 #### [facility] [address] [place] [address], [place] CBC COMPLETE BLOOD COUNTon 0 5-28-2022 Erythrocyte distribution width (RBC) [Ratio] 20.9 % High 11.5-15.0 [facility] Comment on above: Order Comment: No: D o not add to previous draw Performed By: #### 8 5499 #### [facility] [address] [place] [address], [facility] Hematocrit (Bld) [Volume fraction] 27.5 % Low 36.0-45.0 [facility] Comment on above: Order Comment: No: D o not add to previous draw Performed By: #### 8 5499 #### [facility] [address] [place] [address], [facility] Hemoglobin (Bld) [Mass/Vol] 8.5 g/dL Low 12.0-15.0 [facility] Comment on above: Order Comment: No: D o not add to previous draw Performed By: #### 8 5499 #### [facility] [address] [place] [address], [place] IMM PLATELET FRAC 10.2 % High 0.8-6.3 The [facility] Comment on above: Order Comment: No: D o not add to previous draw Performed By: #### 8 5499 #### [facility] [address] [place] [address], [place] MCH (RBC) [Entitic mass] 31.1 pg Normal 27.0-33.0 [facility] Comment on above: Order Comment: No: D o not add to previous draw Performed By: #### 8 5499 #### [facility] [address] [place] [address], [place] MCHC (RBC) [Mass/Vol] 30.9 g/dL Low 32.0-35.0 [facility] Comment on above: Order Comment: No: D o not add to previous draw Performed By: #### 8 5499 #### [facility] [address] [place] [address], [place] MCV (RBC) [Entitic vol] 100.7 fL High 82.0-98.0 [facility] Comment on above: Order Comment: No: D o not add to previous draw Performed By: #### 8 5499 #### [facility] [address] [place] [address], [facility] Nucleated RBC/100 WBC (Bld) [Ratio] 0 % Normal 0-0 [facility] Comment on above: Order Comment: No: D o not add to previous draw Performed By: #### 8 5499 #### [facility] [address] [place] [address], [facility] PLAT ESTIMATE Normal Normal The [facility] Comment on above: Order Comment: No: D o not add to previous draw Result Comment: EDTA smear shows platelet clumping, see platelet estimate Performed By: #### 8 5499 #### [facility] [address] [place] [address], [facility] RBC (Bld) [#/Vol] 2.73 10*6/uL Low 3.80-5.00 The [facility] Comment on above: Order Comment: No: D o not add to previous draw Performed By: #### 8 5499 #### [facility] [address] [place] [address], [place] WBC (Bld) [#/Vol] 19.62 10*3/uL High 4.00-10.60 [facility] Comment on above: Order Comment: No: D o not add to previous draw Performed By: #### 8 5499 #### [facility] [address] [place] [address], [facility] MAGNESIUM BLOODon 04-14-2022 Magnesium [Mass/Vol] 1.9 mg/dL Normal 1.9-2.7 [facility] Comment on above: Order Comment: No: D o not add to previous draw Performed By: #### 2 2706 #### [facility] [address] [place] [address], [place] POC GLUCOSE LABon 04-14-2022 Glucose [Mass/Vol] 117 mg/dL High 70-100 [facility] Comment on above: Performed By: #### 3 0313 #### [facility] [address] [place] [address], [place] Glucose [Mass/Vol] 119 mg/dL High 70-100 [facility] Comment on above: Performed By: #### 8 5499 #### [facility] [address] [place] [address], [place] Glucose [Mass/Vol] 113 mg/dL High 70-100 [facility] Comment on above: Performed By: #### 8 5499 #### [facility] [address] [place] [address], [place] Glucose [Mass/Vol] 112 mg/dL High 70-100 [facility] Comment on above: Performed By: #### 8 5499 #### [facility] [address] [place] [address], [place] BASIC METABOLIC PANELon 03-19 Calcium [Mass/Vol] 8.4 mg/dL Low 8.6-10.3 [facility] Comment on above: Order Comment: Bleed , altereed mental status Performed By: #### 4 1000, 13470, 00639 ####[facility] [place] [address], [place] Chloride [Moles/Vol] 105 mmol/L Normal 98-107 [facility] Comment on above: Order Comment: Bleed , altereed mental status Performed By: #### 4 1000, 77456, 47451 ####[facility] [place] [address], [place] CO2 [Moles/Vol] 24 mmol/L Normal 21-[address] [facility] Comment on above: Order Comment: Bleed , altereed mental status Performed By: #### 4 1000, , 54306 ####[facility] [place] [address], [facility] Creatinine [Mass/Vol] 1.31 mg/dL High 0.60-1.20 [facility] Comment on above: Order Comment: Bleed , altereed mental status Performed By: #### 4 1000, , 27433 ####[facility] [place] [address], [facility] eGFR- 47 ml/min/1.73sq m Abnormal >60 [facility] Comment on above: Order Comment: Bleed , altereed mental status Result Comment: Calc ulation may not be valid for patients over 70 years Performed By: #### 4 1000, , 24792 ####[facility] [place] [address], [facility] eGFR- non- 39 ml/min/1.73sq m Abnormal >60 [facility] Comment on above: Order Comment: Bleed , altereed mental status Result Comment: Calc ulation may not be valid for patients over 70 years Performed By: #### 4 1000, , 79395 ####[facility] [place] [address], [place] Glucose [Mass/Vol] 85 mg/dL Normal 70-100 [facility] Comment on above: Order Comment: Bleed , altereed mental status Performed By: #### 4 1000, , 29983 ####[facility] [place] [address], [place] Potassium [Moles/Vol] 5.2 mmol/L High 3.5-5.1 [facility] Comment on above: Order Comment: Bleed , altereed mental status Performed By: #### 4 1000, , 99525 ####[facility] [place] [address], [place] Sodium [Moles/Vol] 137 mmol/L Normal 136-145 [facility] Comment on above: Order Comment: Bleed , altereed mental status Performed By: #### 4 1000, 80256, 36766 ####[facility] [place] [address], [facility] Urea nitrogen [Mass/Vol] 21 mg/dL Normal 7-25 [facility] Comment on above: Order Comment: Bleed , altereed mental status Performed By: #### 4 1000, 80595, 94925 ####[facility] [address], [facility] CBC COMPLETE BLOOD COUNT04-13-2022 Erythrocyte distribution width (RBC) [Ratio] 20.4 % High 11.5-15.0 [facility] Comment on above: Order Comment: No: D o not add to previous draw Performed By: #### 8 2009 #### [facility] [address] [place] [address], [facility] Hematocrit (Bld) [Volume fraction] 29.2 % Low 36.0-45.0 [facility] Comment on above: Order Comment: No: D o not add to previous draw Performed By: #### 8 0899 #### [facility] [address] [place] [address], [place] Hemoglobin (Bld) [Mass/Vol] 9.0 g/dL Low 12.0-15.0 [facility] Comment on above: Order Comment: No: D o not add to previous draw Performed By: #### 8 7989 #### [facility] [address] [place] [address], [place] MCH (RBC) [Entitic mass] 31.0 pg Normal 27.0-33.0 [facility] Comment on above: Order Comment: No: D o not add to previous draw Performed By: #### 8 0338 #### [facility] [address] [place] [address], [facility] MCHC (RBC) [Mass/Vol] 30.8 g/dL Low 32.0-35.0 [facility] Comment on above: Order Comment: No: D o not add to previous draw Performed By: #### 8 5499 #### [facility] [address] [place] [address], [facility] MCV (RBC) [Entitic vol] 100.7 fL High 82.0-98.0 [facility] Comment on above: Order Comment: No: D o not add to previous draw Performed By: #### 8 5499 #### [facility] [address] [facility] [place] [address], [facility] Nucleated RBC/100 WBC (Bld) [Ratio] 0 % Normal 0-0 [facility] Comment on above: Order Comment: No: D o not add to previous draw Performed By: #### 8 5499 #### [facility] [address] [place] [address], [facility] PLAT CNT 148 10*3/uL Low 150-400 [facility] Comment on above: Order Comment: No: D o not add to previous draw Performed By: #### 8 5499 #### [facility] [address] [place] [address], [facility] RBC (Bld) [#/Vol] 2.90 10*6/uL Low 3.80-5.00 The [facility] Comment on above: Order Comment: No: D o not add to previous draw Performed By: #### 8 5499 #### [facility] [address] [place] [address], [facility] WBC (Bld) [#/Vol] 22.15 10*3/uL High 4.00-10.60 [facility] Comment on above: Order Comment: No: D o not add to previous draw Performed By: #### 8 5499 #### [facility] [address] [place] [address], [facility] MAGNESIUM BLOODon 04-13-2022 Magnesium [Mass/Vol] 1.7 mg/dL Low 1.9-2.7 [facility] Comment on above: Order Comment: Bleed , altereed mental status Performed By: #### 4 1000, 74663, 87445 ####[facility] [place] [address], [place] PHOSPHORUS BLOODon Phosphate [Mass/Vol] 4.7 mg/dL Normal 2.5-5.0 [facility] Comment on above: Order Comment: Bleed , altereed mental status Performed By: #### 4 1000, 15426, 87038 ####[facility] [facility] [place] [address], [place] POC GLUCOSE LABon 04-13-2022 Glucose [Mass/Vol] 119 mg/dL High 70-100 [facility] Comment on above: Performed By: #### 8 5499 #### [facility] [address] [place] [address], [place] Glucose [Mass/Vol] 116 mg/dL High 70-100 [facility] Comment on above: Performed By: #### 8 5499 #### [facility] [address] [place] [address], [place] Glucose [Mass/Vol] 129 mg/dL High 70-100 [facility] Comment on above: Performed By: #### 8 5499 #### [facility] [address] [place] [address], [place] Glucose [Mass/Vol] 109 mg/dL High 70-100 [facility] Comment on above: Performed By: #### 8 5499 ####[facility] [place] [address], [place] POTASSIUM BLOODon 04-13-2022 Potassium [Moles/Vol] 4.7 mmol/L Normal 3.5-5.1 [facility] Comment on above: Order Comment: No: D o not add to previous draw Performed By: #### 2 2706 #### [facility] [address] [place] [address], [facility] BASIC METABOLIC PANELon 05-2 Calcium [Mass/Vol] 8.5 mg/dL Low 8.6-10.3 [facility] Comment on above: Order Comment: Bleed , altereed mental status Performed By: #### 1 0070, , 30820 ####[facility] [place] [address], [facility] Chloride [Moles/Vol] 106 mmol/L Normal 98-107 [facility] Comment on above: Order Comment: Bleed , altereed mental status Performed By: #### 1 0, , 27205 ####[facility] [place] [address], [facility] CO2 [Moles/Vol] 24 mmol/L Normal 21-[address] [facility] Comment on above: Order Comment: Bleed , altereed mental status Performed By: #### 1 0, 77370, 19837 ####[facility] [place] [address], [facility] Creatinine [Mass/Vol] 1.34 mg/dL High 0.60-1.20 [facility] Comment on above: Order Comment: Bleed , altereed mental status Performed By: #### 1 0, 38546, 29889 ####[facility] [place] [address], [facility] eGFR- 46 ml/min/1.73sq m Abnormal >60 [facility] Comment on above: Order Comment: Bleed , altereed mental status Result Comment: Calc ulation may not be valid for patients over 70 years Performed By: #### 1 0, 81369, 39201 ####[facility] [place] [address], [facility] eGFR- non- 38 ml/min/1.73sq m Abnormal >60 [facility] Comment on above: Order Comment: Bleed , altereed mental status Result Comment: Calc ulation may not be valid for patients over 70 years Performed By: #### 1 0070, 95710, 38196 ####[facility] [address], [facility] Glucose [Mass/Vol] 83 mg/dL Normal 70-100 [facility] Comment on above: Order Comment: Bleed , altereed mental status Performed By: #### 1 0070, 54080, 22020 ####[facility] [facility] [place] [address], [facility] Potassium [Moles/Vol] 4.5 mmol/L Normal 3.5-5.1 [facility] Comment on above: Order Comment: Bleed , altereed mental status Performed By: #### 1 0, 75747, 41597 ####[facility] [place] [address], [facility] Sodium [Moles/Vol] 137 mmol/L Normal 136-145 [facility] Comment on above: Order Comment: Bleed , altereed mental status Performed By: #### 1 0, 24656, 12205 ####[facility] [facility] [place] [address], [facility] Urea nitrogen [Mass/Vol] 25 mg/dL Normal 7-25 [facility] Comment on above: Order Comment: Bleed , altereed mental status Performed By: #### 1 0070, 31198, 15911 ####[facility] [facility] [place] [address], [facility] CBC COMPLETE BLOOD COUNTon 0 - Erythrocyte distribution width (RBC) [Ratio] 19.9 % High 11.5-15.0 [facility] Comment on above: Order Comment: No: D o not add to previous draw Performed By: #### 8 5499 #### [facility] [address] [place] [address], [facility] Hematocrit (Bld) [Volume fraction] 28.9 % Low 36.0-45.0 [facility] Comment on above: Order Comment: No: D o not add to previous draw Performed By: #### 8 5499 #### [facility] [address] [place] [address], [facility] Hemoglobin (Bld) [Mass/Vol] 8.7 g/dL Low 12.0-15.0 [facility] Comment on above: Order Comment: No: D o not add to previous draw Performed By: #### 8 5499 #### [facility] [address] MCH (RBC) [Entitic mass] 30.1 pg Normal 27.0-33.0 [facility] Comment on above: Order Comment: No: D o not add to previous draw Performed By: #### 8 5499 #### [facility] [address] [facility] [place] [address], [facility] MCHC (RBC) [Mass/Vol] 30.1 g/dL Low 32.0-35.0 [facility] Comment on above: Order Comment: No: D o not add to previous draw Performed By: #### 8 5499 #### [facility] [address] [facility] [place] [address], [facility] MCV (RBC) [Entitic vol] 100.0 fL High 82.0-98.0 [facility] Comment on above: Order Comment: No: D o not add to previous draw Performed By: #### 8 5499 #### [facility] [address] [place] [address], [facility] Nucleated RBC/100 WBC (Bld) [Ratio] 0 % Normal 0-0 [facility] Comment on above: Order Comment: No: D o not add to previous draw Performed By: #### 8 5499 #### [facility] [address] [place] [address], [facility] PLAT CNT 186 10*3/uL Normal 150-400 [facility] Comment on above: Order Comment: No: D o not add to previous draw Performed By: #### 8 5499 #### [facility] [address] [place] [address], [facility] RBC (Bld) [#/Vol] 2.89 10*6/uL Low 3.80-5.00 [facility] Comment on above: Order Comment: No: D o not add to previous draw Performed By: #### 8 5499 #### [facility] [address] [place] [address], [facility] WBC (Bld) [#/Vol] 21.99 10*3/uL High 4.00-10.60 [facility] Comment on above: Order Comment: No: D o not add to previous draw Performed By: #### 8 5499 #### [facility] [address] [place] [id number], [facility] LIVER BATTERYon 04-12-2022 Albumin [Mass/Vol] 3.0 g/dL Low 3.5-5.7 [facility] Comment on above: Order Comment: Bleed , altereed mental status Performed By: #### 1 0, 94965, 29605 ####[facility] [place] [address], [facility] ALKALINE PHOSPH 87 IU/L Normal 34-[address] [facility] Comment on above: Order Comment: Bleed , altereed mental status Performed By: #### 1 0, 75686, 98216 ####[facility] [address], [facility] ALT [Catalytic activity/Vol] 7 U/L Normal 7-52 [facility] Comment on above: Order Comment: Bleed , altereed mental status Performed By: #### 1 0070, 76100, 20423 ####[facility] AST [Catalytic activity/Vol] 11 U/L Low 13-39 [facility] Comment on above: Order Comment: Bleed , altereed mental status Performed By: #### 1 0070, 47790, 77371 ####[facility] [place] [address], [facility] Bilirubin [Mass/Vol] 0.8 mg/dL Normal 0.3-1.0 [facility] Comment on above: Order Comment: Bleed , altereed mental status Performed By: #### 1 0070, 18614, 92342 ####[facility] Bilirubin.direct [Mass/Vol] 0.2 mg/dL Normal 0.0-0.2 [facility] Comment on above: Order Comment: Bleed , altereed mental status Performed By: #### 1 0, 25911, 86232 ####[facility] [place] [address], [facility] Protein [Mass/Vol] 6.0 g/dL Normal 6.0-8.3 [facility] Comment on above: Order Comment: Bleed , altereed mental status Performed By: #### 1 0, 02122, 29911 ####[facility] [place] [address], [facility] MAGNESIUM BLOODon 04-12-2022 Magnesium [Mass/Vol] 1.9 mg/dL Normal 1.9-2.7 [facility] Comment on above: Order Comment: Bleed , altereed mental status Performed By: #### 1 0070, [id number], [id number] ####[facility] [place] [address], [facility] Operative Reporton Operative Report MR#: [id number] # [facility] Pt. Name: María Elena Tafoya Room #: CCCI Discharge Date: Birthdate: 1940 OPERATIVE REPORT DATE OF SURGERY: 04/12/2022 SURGEON: Sharla Lizama MD Operative report: Laparoscopic cholecystectomy Location: [facility] main or Preoperative diagnosis: Gallstone pancreatitis Postoperative diagnosis: Gallstone pancreatitis Operation performed: Laparoscopic cholecystectomy Surgeon: Sharla Lizama MD Option Trader: Dillon Thomas MD (resident pgy5) Estimated blood [...] Lizama MD Date Trans: 04/12/2022 05:18 P/ [id number] cc: Bennie Albright M.D. [address] [facility] [id number] Normal [facility] Operative Report MR#: [id number] I [facility] Pt. Name: María Elena Tafoya Room #: [id number] Discharge Date: Birthdate: 1940 OPERATIVE REPORT DATE OF SURGERY: 04/12/2022 SURGEON: Sharla Lizama MD Operative report: Laparoscopic cholecystectomy Location: [facility] main or Preoperative diagnosis: Gallstone pancreatitis Postoperative diagnosis: Gallstone pancreatitis Operation performed: Laparoscopic cholecystectomy Surgeon: Sharla Lizama MD Option Trader: Dillon Thomas MD (resident pgy5) Estimated blood [...] Lizama MD Date Trans: 04/12/2022 05:18 P/ [id number] cc: Bennie Albright M.D. [address] [facility] [address] Normal [facility] POC GLUCOSE LABon 04-12-2022 Glucose [Mass/Vol] 122 mg/dL High 70-100 [facility] Comment on above: Performed By: #### 8 [id number] #### [facility] [address] [place] [address], [facility] Glucose [Mass/Vol] 167 mg/dL High 70-100 [facility] Comment on above: Performed By: #### 8 [id number] ####[facility] [place] [address], [facility] Glucose [Mass/Vol] 105 mg/dL High 70-100 [facility] Comment on above: Performed By: #### 3 0313 #### [facility] [address] [facility] [place] [address], [facility] Glucose [Mass/Vol] 111 mg/dL High 70-100 [facility] Comment on above: Performed By: #### 8 [id number] ####[facility] [facility] [place] [address], [facility] Glucose [Mass/Vol] 109 mg/dL High 70-100 [facility] Comment on above: Performed By: #### 3 0313 #### [facility] [address] POC SARS COV2 IDon 2 SARS-CoV-2 (COVID-19) RNA MATTHEW+probe Ql (Unsp spec) Negative Normal NEGATIVE [facility] Comment on above: Result Comment: ID [...] Accreditation. Performed By: #### 8 [id number] #### [facility] [address] [place] [address], [facility] BASIC METABOLIC PANELon 05-2 Calcium [Mass/Vol] 8.3 mg/dL Low 8.6-10.3 [facility] Comment on above: Order Comment: No: D o not add to previous draw Performed By: #### 8 [id number] #### [facility] [address] [place] [address], [place] Chloride [Moles/Vol] 106 mmol/L Normal 98-107 [facility] Comment on above: Order Comment: No: D o not add to previous draw Performed By: #### 8 [id number] #### [facility] [address] [place] [address], [place] CO2 [Moles/Vol] 23 mmol/L Normal 21-31 [facility] Comment on above: Order Comment: No: D o not add to previous draw Performed By: #### 8 [id number] #### [facility] [address] [place] [address], [facility] Creatinine [Mass/Vol] 1.21 mg/dL High 0.60-1.20 [facility] Comment on above: Order Comment: No: D o not add to previous draw Performed By: #### 8 [id number] #### [facility] [address] [place] [address], [facility] eGFR- 51 ml/min/1.73sq m Abnormal >60 [facility] Comment on above: Order Comment: No: D o not add to previous draw Result Comment: Calc ulation may not be valid for patients over 70 years Performed By: #### 8 [id number] #### [facility] [address] [place] [id number], [facility] eGFR- non- 42 ml/min/1.73sq m Abnormal >60 [facility] Comment on above: Order Comment: No: D o not add to previous draw Result Comment: Calc ulation may not be valid for patients over 70 years Performed By: #### 8 [id number] #### [facility] [address] [place] [address], [place] Glucose [Mass/Vol] 91 mg/dL Normal 70-100 [facility] Comment on above: Order Comment: No: D o not add to previous draw Performed By: #### 8 [id number] #### [facility] [address] [place] [address], [facility] Potassium [Moles/Vol] 4.5 mmol/L Normal 3.5-5.1 [facility] Comment on above: Order Comment: No: D o not add to previous draw Performed By: #### 8 [id number] #### [facility] [address] [place] [address], [place] Sodium [Moles/Vol] 138 mmol/L Normal 136-145 [facility] Comment on above: Order Comment: No: D o not add to previous draw Performed By: #### 8 [id number] #### [facility] [address] [place] [address], [facility] Urea nitrogen [Mass/Vol] 22 mg/dL Normal 7-25 [facility] Comment on above: Order Comment: No: D o not add to previous draw Performed By: #### 8 [id number] #### [facility] [address] [place] [address], [facility] CBC COMPLETE BLOOD COUNTon 0 04-11-2022 Erythrocyte distribution width (RBC) [Ratio] 19.6 % High 11.5-15.0 [facility] Comment on above: Order Comment: No: D o not add to previous draw Performed By: #### 5 0608 #### [facility] [address] [place] [address], [place] Hematocrit (Bld) [Volume fraction] 29.5 % Low 36.0-45.0 [facility] Comment on above: Order Comment: No: D o not add to previous draw Performed By: #### 5 0608 #### [facility] [address] [place] [address], [facility] Hemoglobin (Bld) [Mass/Vol] 9.2 g/dL Low 12.0-15.0 [facility] Comment on above: Order Comment: No: D o not add to previous draw Performed By: #### 5 0608 #### [facility] [address] [place] [address], [facility] MCH (RBC) [Entitic mass] 31.0 pg Normal 27.0-33.0 [facility] Comment on above: Order Comment: No: D o not add to previous draw Performed By: #### 5 0608 #### [facility] [address] [place] [address], [facility] MCHC (RBC) [Mass/Vol] 31.2 g/dL Low 32.0-35.0 [facility] Comment on above: Order Comment: No: D o not add to previous draw Performed By: #### 5 0608 #### [facility] [address] [facility] [place] [address], [facility] MCV (RBC) [Entitic vol] 99.3 fL High 82.0-98.0 [facility] Comment on above: Order Comment: No: D o not add to previous draw Performed By: #### 5 0608 #### [facility] [address] [facility]. [address] Nucleated RBC/100 WBC (Bld) [Ratio] 0 % Normal 0-0 [facility] Comment on above: Order Comment: No: D o not add to previous draw Performed By: #### 5 0608 #### [facility] [address] [facility] [place] [address], [facility] PLAT CNT 277 10*3/uL Normal 150-400 [facility] Comment on above: Order Comment: No: D o not add to previous draw Performed By: #### 5 0608 #### [facility] [address] [place] [address], [facility] RBC (Bld) [#/Vol] 2.97 10*6/uL Low 3.80-5.00 [facility] Comment on above: Order Comment: No: D o not add to previous draw Performed By: #### 5 0608 #### [facility] [address] [place] [address], [facility] WBC (Bld) [#/Vol] 20.81 10*3/uL High 4.00-10.60 [facility] Comment on above: Order Comment: No: D o not add to previous draw Performed By: #### 5 0608 #### [facility] [address] [place] [id number], [facility] LIVER BATTERYon 04-11-2022 Albumin [Mass/Vol] 3.1 g/dL Low 3.5-5.7 [facility] Comment on above: Order Comment: No: D o not add to previous draw Performed By: #### 8 [id number] #### [facility] [address] [place] [id number], [facility] ALKALINE PHOSPH 92 IU/L Normal 34-[address] [facility] Comment on above: Order Comment: No: D o not add to previous draw Performed By: #### 8 [id number] #### [facility] [address] [place] [address], [facility] ALT [Catalytic activity/Vol] 7 U/L Normal 7-52 [facility] Comment on above: Order Comment: No: D o not add to previous draw Performed By: #### 8 [id number] #### [facility] [address] [place] [id number], [facility] AST [Catalytic activity/Vol] 9 U/L Low 13-39 [facility] Comment on above: Order Comment: No: D o not add to previous draw Performed By: #### 8 [id number] #### [facility] [address] [place] [address], [place] Bilirubin [Mass/Vol] 0.8 mg/dL Normal 0.3-1.0 [facility] Comment on above: Order Comment: No: D o not add to previous draw Performed By: #### 8 [id number] #### [facility] [address] [place] [address], [place] Bilirubin.direct [Mass/Vol] 0.3 mg/dL High 0.0-0.2 [facility] Comment on above: Order Comment: No: D o not add to previous draw Performed By: #### 8 [id number] #### [facility] [address] [place] [address], [place] Protein [Mass/Vol] 5.7 g/dL Low 6.0-8.3 [facility] Comment on above: Order Comment: No: D o not add to previous draw Performed By: #### 8 [id number] #### [facility] [address] [place] [address], [place] MAGNESIUM BLOODon 04-11-2022 Magnesium [Mass/Vol] 1.7 mg/dL Low 1.9-2.7 [facility] Comment on above: Order Comment: No: D o not add to previous draw Performed By: #### 8 [id number] #### [facility] [address] [place] [address], [place] POC GLUCOSE LABon 04-11-2022 Glucose [Mass/Vol] 143 mg/dL High 70-100 [facility] Comment on above: Performed By: #### 8 [id number] #### [facility] [address] [place] [address], [place] Glucose [Mass/Vol] 142 mg/dL High 70-100 [facility] Comment on above: Performed By: #### 8 [id number] ####[facility] [place] [address], [facility] Glucose [Mass/Vol] 125 mg/dL High 70-100 [facility] Comment on above: Performed By: #### 8 [id number] #### [facility] [address] [place] [address], [place] Glucose [Mass/Vol] 113 mg/dL High 70-100 [facility] Comment on above: Performed By: #### 3 0313 #### [facility] [address] [place] [address], [place] URINE SMITH STAIN/EOSon EOSINOPHIL SMEAR NONE SEEN Normal NSN [facility] Comment on above: Order Comment: No: D o not add to previous draw [place] Normal [facility] Comment on above: Order Comment: No: D o not add to previous draw Result Comment: Test Performed by [employer] [address] [place] [id number] - Released 04/11/2022 22:02 BASIC METABOLIC PANELon 05-2 Calcium [Mass/Vol] 8.3 mg/dL Low 8.6-10.3 [facility] Comment on above: Order Comment: No: D o not add to previous draw Performed By: #### 8 [id number] #### [facility] [address] [place] [address], [place] Chloride [Moles/Vol] 107 mmol/L Normal 98-107 [facility] Comment on above: Order Comment: No: D o not add to previous draw Performed By: #### 8 [id number] #### [facility] [address] [place] [address], [place] CO2 [Moles/Vol] 23 mmol/L Normal 21-[address] [facility] Comment on above: Order Comment: No: D o not add to previous draw Performed By: #### 8 [id number] #### [facility] [address] [place] [address], [place] Creatinine [Mass/Vol] 1.40 mg/dL High 0.60-1.20 [facility] Comment on above: Order Comment: No: D o not add to previous draw Performed By: #### 8 [id number] #### [facility] [address] [place] [address], [facility] eGFR- 44 ml/min/1.73sq m Abnormal >60 [facility] Comment on above: Order Comment: No: D o not add to previous draw Result Comment: Calc ulation may not be valid for patients over 70 years Performed By: #### 8 [id number] #### [facility] [address] [place] [address], [facility] eGFR- non- 36 ml/min/1.73sq m Abnormal >60 [facility] Comment on above: Order Comment: No: D o not add to previous draw Result Comment: Calc ulation may not be valid for patients over 70 years Performed By: #### 8 [id number] #### [facility] [address] [place] [address], [place] Glucose [Mass/Vol] 101 mg/dL High 70-100 [facility] Comment on above: Order Comment: No: D o not add to previous draw Performed By: #### 8 [id number] #### [facility] [address] [place] [address], [place] Potassium [Moles/Vol] 4.1 mmol/L Normal 3.5-5.1 [facility] Comment on above: Order Comment: No: D o not add to previous draw Performed By: #### 8 [id number] #### [facility] [address] [place] [address], [place] Sodium [Moles/Vol] 138 mmol/L Normal 136-145 [facility] Comment on above: Order Comment: No: D o not add to previous draw Performed By: #### 8 [id number] #### [facility] [address] [place] [address], [place] Urea nitrogen [Mass/Vol] 25 mg/dL Normal 7-25 [facility] Comment on above: Order Comment: No: D o not add to previous draw Performed By: #### 8 [id number] #### [facility] [address] [facility] [address] CBC COMPLETE BLOOD COUNTon 0 - Erythrocyte distribution width (RBC) [Ratio] 19.9 % High 11.5-15.0 [facility] Comment on above: Order Comment: No: D o not add to previous draw Performed By: #### 5 0608 #### [facility] [address] Hematocrit (Bld) [Volume fraction] 29.1 % Low 36.0-45.0 [facility] Comment on above: Order Comment: No: D o not add to previous draw Performed By: #### 5 0608 #### [facility] [address] [facility] [address] Hemoglobin (Bld) [Mass/Vol] 9.1 g/dL Low 12.0-15.0 [facility] Comment on above: Order Comment: No: D o not add to previous draw Performed By: #### 5 0608 #### [facility] [address] [facility] [place] [address], [facility] MCH (RBC) [Entitic mass] 30.6 pg Normal 27.0-33.0 [facility] Comment on above: Order Comment: No: D o not add to previous draw Performed By: #### 5 0608 #### [facility] [address] [facility] [place] [address], [facility] MCHC (RBC) [Mass/Vol] 31.3 g/dL Low 32.0-35.0 [facility] Comment on above: Order Comment: No: D o not add to previous draw Performed By: #### 5 0608 #### [facility] [address] [place] [address], [facility] MCV (RBC) [Entitic vol] 98.0 fL Normal 82.0-98.0 [facility] Comment on above: Order Comment: No: D o not add to previous draw Performed By: #### 5 0608 #### [facility] [address] [facility] [place] [address], [facility] Nucleated RBC/100 WBC (Bld) [Ratio] 0 % Normal 0-0 [facility] Comment on above: Order Comment: No: D o not add to previous draw Performed By: #### 5 0608 #### [facility] [address] [place] [address], [facility] PLAT CNT 281 10*3/uL Normal 150-400 [facility] Comment on above: Order Comment: No: D o not add to previous draw Performed By: #### 5 0608 #### [facility] [address] [place] [address], [facility] RBC (Bld) [#/Vol] 2.97 10*6/uL Low 3.80-5.00 [facility] Comment on above: Order Comment: No: D o not add to previous draw Performed By: #### 5 0608 #### [facility] [address] [facility] [place] [address], [facility] WBC (Bld) [#/Vol] 19.64 10*3/uL High 4.00-10.60 [facility] Comment on above: Order Comment: No: D o not add to previous draw Performed By: #### 5 0608 #### [facility] [address] [facility] [place] [address], [facility] MAGNESIUM BLOODon 04-10-2022 Magnesium [Mass/Vol] 1.6 mg/dL Low 1.9-2.7 [facility] Comment on above: Order Comment: No: D o not add to previous draw Performed By: #### 8 [id number] #### [facility] [address] [place] [address], [place] POC GLUCOSE LABon 04-10-2022 Glucose [Mass/Vol] 154 mg/dL High 70-100 [facility] Comment on above: Performed By: #### 8 [id number] #### [facility] [address] [place] [address], [place] Glucose [Mass/Vol] 120 mg/dL High 70-100 [facility] Comment on above: Performed By: #### 3 0313 #### [facility] [address] [place] [address], [place] Glucose [Mass/Vol] 131 mg/dL High 70-100 [facility] Comment on above: Performed By: #### 8 [id number] ####[facility] [place] [address], [place] Glucose [Mass/Vol] 114 mg/dL High 70-100 [facility] Comment on above: Performed By: #### 8 [id number] #### [facility] [address] [place] [address], [place] BASIC METABOLIC PANELon 05 Calcium [Mass/Vol] 8.7 mg/dL Normal 8.6-10.3 [facility] Comment on above: Order Comment: No: D o not add to previous draw Performed By: #### 8 [id number] #### [facility] [address] [place] [address], [place] Chloride [Moles/Vol] 104 mmol/L Normal 98-107 [facility] Comment on above: Order Comment: No: D o not add to previous draw Performed By: #### 8 [id number] #### [facility] [address] [place] [address], [place] CO2 [Moles/Vol] 24 mmol/L Normal 21-[address] [facility] Comment on above: Order Comment: No: D o not add to previous draw Performed By: #### 8 [id number] #### [facility] [address] [place] [address], [place] Creatinine [Mass/Vol] 1.29 mg/dL High 0.60-1.20 [facility] Comment on above: Order Comment: No: D o not add to previous draw Performed By: #### 8 [id number] #### [facility] [address] [place] [address], [facility] eGFR- 48 ml/min/1.73sq m Abnormal >60 [facility] Comment on above: Order Comment: No: D o not add to previous draw Result Comment: Calc ulation may not be valid for patients over 70 years Performed By: #### 8 [id number] #### [facility] [address] [place] [address], [facility] eGFR- non- 39 ml/min/1.73sq m Abnormal >60 [facility] Comment on above: Order Comment: No: D o not add to previous draw Result Comment: Calc ulation may not be valid for patients over 70 years Performed By: #### 8 [id number] #### [facility] [address] [place] [address], [place] Glucose [Mass/Vol] 90 mg/dL Normal 70-100 [facility] Comment on above: Order Comment: No: D o not add to previous draw Performed By: #### 8 [id number] #### [facility] [address] [place] [address], [place] Potassium [Moles/Vol] 4.3 mmol/L Normal 3.5-5.1 [facility] Comment on above: Order Comment: No: D o not add to previous draw Performed By: #### 8 [id number] #### [facility] [address] [place] [address], [place] Sodium [Moles/Vol] 137 mmol/L Normal 136-145 The [facility] Comment on above: Order Comment: No: D o not add to previous draw Performed By: #### 8 [id number] #### [facility] [address] [place] [address], [facility] Urea nitrogen [Mass/Vol] 16 mg/dL Normal 7-25 [facility] Comment on above: Order Comment: No: D o not add to previous draw Performed By: #### 8 [id number] #### [facility] [address] [place] [address], [facility] CBC COMPLETE BLOOD COUNTon 0 - Erythrocyte distribution width (RBC) [Ratio] 19.4 % High 11.5-15.0 [facility] Comment on above: Order Comment: No: D o not add to previous draw Performed By: #### 8 [id number] #### [facility] [address] [place] [address], [facility] Hematocrit (Bld) [Volume fraction] 29.9 % Low 36.0-45.0 [facility] Comment on above: Order Comment: No: D o not add to previous draw Performed By: #### 8 [id number] #### [facility] [address] [place] [id number], [facility] Hemoglobin (Bld) [Mass/Vol] 9.4 g/dL Low 12.0-15.0 [facility] Comment on above: Order Comment: No: D o not add to previous draw Performed By: #### 8 [id number] #### [facility] [address] [place] [address], [facility] MCH (RBC) [Entitic mass] 30.4 pg Normal 27.0-33.0 [facility] Comment on above: Order Comment: No: D o not add to previous draw Performed By: #### 8 [id number] #### [facility] [address] [place] [address], [place] MCHC (RBC) [Mass/Vol] 31.4 g/dL Low 32.0-35.0 [facility] Comment on above: Order Comment: No: D o not add to previous draw Performed By: #### 8 [id number] #### [facility] [address] [place] [address], [facility] MCV (RBC) [Entitic vol] 96.8 fL Normal 82.0-98.0 [facility] Comment on above: Order Comment: No: D o not add to previous draw Performed By: #### 8 [id number] #### [facility] [address] [place] [address], [facility] Nucleated RBC/100 WBC (Bld) [Ratio] 0 % Normal 0-0 [facility] Comment on above: Order Comment: No: D o not add to previous draw Performed By: #### 8 [id number] #### [facility] [address] [place] [id number], [facility] PLAT CNT 325 10*3/uL Normal 150-400 [facility] Comment on above: Order Comment: No: D o not add to previous draw Performed By: #### 8 [id number] #### [facility] [address] [facility] [place] [address], [facility] RBC (Bld) [#/Vol] 3.09 10*6/uL Low 3.80-5.00 The [facility] Comment on above: Order Comment: No: D o not add to previous draw Performed By: #### 8 [id number] #### [facility] [address] [place] [id number], [place] WBC (Bld) [#/Vol] 21.91 10*3/uL High 4.00-10.60 [facility] Comment on above: Order Comment: No: D o not add to previous draw Performed By: #### 8 [id number] #### [facility] [address] [place] [address], [place] CREATININE URINE RANDOMon Creatinine (U) [Mass/Vol] 40.0 mg/dL Normal The [facility] [facility] Comment on above: Order Comment: The A ptima SARS-CoV-2 assay is a nucleic acid amplification test intended for the qualitative detection of RNA from SARS-CoV-2 isolated and purified from nasopharyngeal (TRAIN CALLER),oropharyngeal (OP), nasal swab, sputum, and bronchoalveolar lavage (BAL) specimens from patients with signs and symptoms of infection who are suspected of COVID-19. Results are for the identification of SARS-CoV-2 RNA. The SARS-CoV-2 RNA is generally detectable during the acute phase of infection. The Aptima SARS-CoV-2 Assay on the [employer] and [employer] Fusion system is intended for use by laboratory personnel specifically instructed and trained in the operation of the [employer] system. The Aptima SARS-CoV-2 assay is [...] specimens Performed By: #### 3 [id number] #### [facility] [address] [place] [address], [facility] MAGNESIUM BLOODon 04-09-2022 Magnesium [Mass/Vol] 1.9 mg/dL Normal 1.9-2.7 [facility] Comment on above: Order Comment: No: D o not add to previous draw Performed By: #### 8 [id number] #### [facility] [address] [place] [address], [facility] OSMOLALITY URINEon OSMOLALITY 317 mOsm/kg Normal 50-1400 [facility] Comment on above: Order Comment: The A ptima SARS-CoV-2 assay is a nucleic acid amplification test intended for the qualitative detection of RNA from SARS-CoV-2 isolated and purified from nasopharyngeal (TRAIN CALLER),oropharyngeal (OP), nasal swab, sputum, and bronchoalveolar lavage (BAL) specimens from patients with signs and symptoms of infection who are suspected of COVID-19. Results are for the identification of SARS-CoV-2 RNA. The SARS-CoV-2 RNA is generally detectable during the acute phase of infection. The Aptima SARS-CoV-2 Assay on the [employer] system is intended for use by laboratory personnel specifically instructed and trained in the operation of the [employer] system. The Aptima SARS-CoV-2 assay is [...] information. Performed By: #### 3 [id number] #### [facility] [address] POC GLUCOSE LABon 04-09-2022 Glucose [Mass/Vol] 159 mg/dL High 70-100 [facility] Comment on above: Performed By: #### 8 [id number] #### [facility] [address] [facility] [place] [address], [facility] Glucose [Mass/Vol] 141 mg/dL High 70-100 [facility] Comment on above: Performed By: #### 8 [id number] #### [facility] [address] [facility] [place] [address], [facility] Glucose [Mass/Vol] 337 mg/dL High 70-100 [facility] Comment on above: Performed By: #### 8 [id number] #### [facility] [address] [facility] [place] [address], [facility] Glucose [Mass/Vol] 113 mg/dL High 70-100 [facility] Comment on above: Order Comment: NOTE: Result Checked Performed By: #### 3 0313 #### [facility] SODIUM URINE RANDOMon 2021 Sodium (U) [Moles/Vol] 105 mmol/L Normal [facility] Comment on above: Order Comment: The A ptima SARS-CoV-2 assay is a nucleic acid amplification test intended for the qualitative detection of RNA from SARS-CoV-2 isolated and purified from nasopharyngeal (TRAIN CALLER),oropharyngeal (OP), nasal swab, sputum, and bronchoalveolar lavage (BAL) specimens from patients with signs and symptoms of infection who are suspected of COVID-19. Results are for the identification of SARS-CoV-2 RNA. The SARS-CoV-2 RNA is generally detectable during the acute phase of infection. The Aptima SARS-CoV-2 Assay on the [employer] system is intended for use by laboratory personnel specifically instructed and trained in the operation of the [employer] system. The Aptima SARS-CoV-2 assay is [...] specimens Performed By: #### 3 [id number] #### [address] UA,MICROSCOPIC REQUIREDon Appearance (U) CLEAR Normal CLEAR [facility] Comment on above: Order Comment: No: D o not add to previous draw Performed By: #### 8 [id number] #### [place] [address], [facility] Bilirubin Ql (U) Negative Normal NEGATIVE [facility] Comment on above: Order Comment: No: D o not add to previous draw Performed By: #### 8 [id number] #### [address] [place] [address], [place] BUDDING YEAST FEW Abnormal NONE SEEN [facility] Comment on above: Order Comment: No: D o not add to previous draw Performed By: #### 8 [id number] #### [facility] [address] [place] [address], [place] Color (U) YELLOW Normal YELLOW [facility] Comment on above: Order Comment: No: D o not add to previous draw Performed By: #### 8 [id number] #### [facility] [address] [place] [address], [place] EPIS NONE SEEN Normal FEW,OCC,NONE SEEN [facility] Comment on above: Order Comment: No: D o not add to previous draw Performed By: #### 8 [id number] #### [facility] [address] [place] [address], [place] Glucose Ql (U) Negative Normal NEGATIVE [facility] Comment on above: Order Comment: No: D o not add to previous draw Performed By: #### 8 [id number] #### [facility] [address] [place] [address], [place] Hemoglobin Ql (U) SMALL Abnormal NEGATIVE [facility] Comment on above: Order Comment: No: D o not add to previous draw Performed By: #### 8 [id number] #### [facility] [address] [place] [address], [place] KETONE Negative Normal NEGATIVE [facility] Comment on above: Order Comment: No: D o not add to previous draw Performed By: #### 8 [id number] #### [facility] [address] [place] [address], [place] LEUK LUIS ANTONIO Negative Normal NEGATIVE [facility] Comment on above: Order Comment: No: D o not add to previous draw Performed By: #### 8 [id number] #### [facility] [address] [place] [address], [place] Nitrite Ql (U) Negative Normal NEGATIVE [facility] Comment on above: Order Comment: No: D o not add to previous draw Performed By: #### 8 [id number] #### [facility] [address] [facility]. [address] pH (U) 7.0 [pH] Normal 5.0-8.0 [facility] Comment on above: Order Comment: No: D o not add to previous draw Performed By: #### 8 [id number] #### [facility] [address] [facility]. [address] Protein Ql (U) Negative Normal NEGATIVE [facility] Comment on above: Order Comment: No: D o not add to previous draw Performed By: #### 8 [id number] #### [facility] [address] [facility]. [address] RBC 0-2 Abnormal NONE SEEN [facility] Comment on above: Order Comment: No: D o not add to previous draw Performed By: #### 8 [id number] #### [facility] [address] [facility]. [address] SPEC GRAV 1.008 Low 1.015-1.020 [facility] Comment on above: Order Comment: No: D o not add to previous draw Performed By: #### 8 [id number] #### [facility] [address] [facility] [place] [address], [facility] WBC UA NONE SEEN Normal NONE SEEN [facility] Comment on above: Order Comment: No: D o not add to previous draw Performed By: #### 8 [id number] #### [facility] [address] *BLOOD CULTUREon 04-08-2022 *BLOOD CULTURE Clinical Report: (D) Specimen: BLOOD CULTURE Collected: 04/08/2022 18:50 Status: Final Last Updated: 04/14/2022 06:21 CULT RES (Final) No Growth Day 5 Normal [facility] Comment on above: Performed By: #### 3 0313 #### [facility] [address] [place] [address], [facility] *BLOOD CULTURE Clinical Report: (D) Specimen: BLOOD CULTURE Collected: 04/08/2022 15:33 Status: Final Last Updated: 04/14/2022 06:21 (1) Per denisha Fernandez.labs to be drawn at three CULT RES (Final) No Growth Day 5 Normal [facility] Comment on above: Order Comment: No: D o not add to previous draw Performed By: #### 5 [id number] #### [facility] [address] [place] [address], [facility] BASIC METABOLIC PANELon 03-19 Calcium [Mass/Vol] 8.9 mg/dL Normal 8.6-10.3 [facility] Comment on above: Order Comment: No: D o not add to previous draw Performed By: #### 2 2706 #### [facility] [address] [place] [address], [place] Chloride [Moles/Vol] 105 mmol/L Normal 98-107 [facility] Comment on above: Order Comment: No: D o not add to previous draw Performed By: #### 2 2706 #### [facility] [address] [place] [address], [place] CO2 [Moles/Vol] 24 mmol/L Normal 21-31 [facility] Comment on above: Order Comment: No: D o not add to previous draw Performed By: #### 2 2706 #### [facility] [address] [place] [address], [place] Creatinine [Mass/Vol] 1.03 mg/dL Normal 0.60-1.20 [facility] Comment on above: Order Comment: No: D o not add to previous draw Performed By: #### 2 2706 #### [facility] [address] [place] [address], [place] eGFR- non- 51 ml/min/1.73sq m Abnormal >60 [facility] Comment on above: Order Comment: No: D o not add to previous draw Result Comment: Calc ulation may not be valid for patients over 70 years Performed By: #### 2 2706 #### [facility] [address] [place] [address], [place] GFR/1.73 sq M.predicted among blacks MDRD (S/P/Bld) [Vol rate/Area] mL/min/{1.73_m2} Normal >60 [facility] Comment on above: Order Comment: No: D o not add to previous draw Result Comment: Calc ulation may not be valid for patients over 70 years Performed By: #### 2 2706 #### [facility] [address] [place] [address], [place] Glucose [Mass/Vol] 113 mg/dL High 70-100 [facility] Comment on above: Order Comment: No: D o not add to previous draw Performed By: #### 2 2706 #### [facility] [address] [place] [address], [place] Potassium [Moles/Vol] 4.1 mmol/L Normal 3.5-5.1 [facility] Comment on above: Order Comment: No: D o not add to previous draw Performed By: #### 2 2706 #### [facility] [address] [place] [address], [place] Sodium [Moles/Vol] 136 mmol/L Normal 136-145 [facility] Comment on above: Order Comment: No: D o not add to previous draw Performed By: #### 2 2706 #### [facility] [address] [place] [address], [place] Urea nitrogen [Mass/Vol] 11 mg/dL Normal 7-25 [facility] Comment on above: Order Comment: No: D o not add to previous draw Performed By: #### 2 2706 #### [facility] [address] [facility]. [address] CBC W/DIFFon 04-08-2022 ABS IMM GRANS 0.4 10*3/uL High 0.0-0.2 [facility] Comment on above: Performed By: #### 8 [id number] #### [facility] [address] [facility] [place] [address], [facility] ABS NEUTROPHILS 24.5 10*3/uL High 1.6-7.6 [facility] Comment on above: Performed By: #### 8 [id number] #### [facility] [address] [facility] [place] [address], [facility] ANISO Moderate Normal [facility] Comment on above: Performed By: #### 8 [id number] #### [facility] [address] [facility]. [address] Basophils (Bld) [#/Vol] 0.2 10*3/uL Normal 0.0-0.2 [facility] Comment on above: Performed By: #### 8 [id number] #### [facility] [address] [facility] [place] [address], [facility] Basophils/100 WBC (Bld) 0.6 % Normal 0.0-1.0 [facility] Comment on above: Performed By: #### 8 [id number] #### [facility] [address] [facility] [place] [address], [facility] Eosinophils (Bld) [#/Vol] 0.0 10*3/uL Normal 0.0-0.5 [facility] Comment on above: Performed By: #### 8 [id number] #### [facility] [address] [facility] [place] [address], [facility] Eosinophils/100 WBC (Bld) 0.1 % Normal 0.0-6.0 [facility] Comment on above: Performed By: #### 8 [id number] #### [facility] [address] [facility]. [address] Erythrocyte distribution width (RBC) [Ratio] 19.1 % High 11.5-15.0 [facility] Comment on above: Performed By: #### 8 [id number] #### [facility] [address] [facility] [place] [address], [facility] Hematocrit (Bld) [Volume fraction] 32.3 % Low 36.0-45.0 [facility] Comment on above: Performed By: #### 8 [id number] #### [facility] [address] [facility] [place] [address], [facility] Hemoglobin (Bld) [Mass/Vol] 10.1 g/dL Low 12.0-15.0 [facility] Comment on above: Performed By: #### 8 [id number] #### [facility] [address] [place] [address], [facility] IMMATURE GRANS 1.5 % High 0.0-1.0 [facility] Comment on above: Performed By: #### 8 [id number] #### [facility] [address] [facility] [place] [address], [facility] Lymphocytes (Bld) [#/Vol] 1.5 10*3/uL Normal 1.2-4.0 [facility] Comment on above: Performed By: #### 8 [id number] #### [facility] [address] [facility] [place] [address], [facility] Lymphocytes/100 WBC (Bld) 5.5 % Low 20.0-45.0 [facility] Comment on above: Performed By: #### 8 [id number] #### [facility] [address] [facility] [place] [address], [facility] MCH (RBC) [Entitic mass] 30.4 pg Normal 27.0-33.0 [facility] Comment on above: Performed By: #### 8 [id number] #### [facility] [address] [facility] [address] MCHC (RBC) [Mass/Vol] 31.3 g/dL Low 32.0-35.0 [facility] Comment on above: Performed By: #### 8 [id number] #### [facility] [address] [place] [address], [facility] MCV (RBC) [Entitic vol] 97.3 fL Normal 82.0-98.0 [facility] Comment on above: Performed By: #### 8 [id number] #### [facility] [address] [facility] [place] [address], [facility] Monocytes (Bld) [#/Vol] 0.6 10*3/uL Normal 0.1-1.0 [facility] Comment on above: Performed By: #### 8 [id number] #### [facility] [address] [facility] [place] [address], [facility] MONOS 2.1 % Low 5.0-12.0 [facility] Comment on above: Performed By: #### 8 [id number] #### [facility] [address] [facility] [place] [address], [facility] Neutrophils/100 WBC (Bld) 90.2 % High 40.0-72.0 [facility] Comment on above: Performed By: #### 8 [id number] #### [facility] [address] [facility] [place] [address], [facility] Nucleated RBC/100 WBC (Bld) [Ratio] 0 % Normal 0-0 [facility] Comment on above: Performed By: #### 8 [id number] #### [facility] [address] [facility] [place] [address], [facility] PLAT CNT 321 10*3/uL Normal 150-400 [facility] Comment on above: Performed By: #### 8 [id number] #### [facility] [address] [place] [address], [facility] POIK Slight Normal [facility] Comment on above: Performed By: #### 8 [id number] #### [facility] [address] [place] [address], [place] POLY Slight Normal [facility] Comment on above: Performed By: #### 8 [id number] #### [facility] [address] [place] [address], [place] RBC (Bld) [#/Vol] 3.32 10*6/uL Low 3.80-5.00 [facility] Comment on above: Performed By: #### 8 [id number] #### [facility] [address] [place] [address], [place] WBC (Bld) [#/Vol] 27.12 10*3/uL High 4.00-10.60 [facility] Comment on above: Performed By: #### 8 [id number] #### [facility] [address] [place] [address], [place] MAGNESIUM BLOODon 04-08-2022 Magnesium [Mass/Vol] 1.4 mg/dL Low 1.9-2.7 [facility] Comment on above: Order Comment: No: D o not add to previous draw Performed By: #### 2 2706 #### [facility] [address] [place] [address], [place] POC GLUCOSE LABon 04-08-2022 Glucose [Mass/Vol] 129 mg/dL High 70-100 [facility] Comment on above: Performed By: #### 8 [id number] #### [facility] [address] [place] [address], [place] Glucose [Mass/Vol] 130 mg/dL High 70-100 [facility] Comment on above: Performed By: #### 5 0608 #### [facility] [address] [place] [address], [place] Glucose [Mass/Vol] 132 mg/dL High 70-100 [facility] Comment on above: Performed By: #### 8 [id number] #### [facility] [address] [place] [address], [place] Glucose [Mass/Vol] 129 mg/dL High 70-100 [facility] Comment on above: Performed By: #### 8 [id number] #### [facility] [address] [place] [address], [place] BASIC METABOLIC PANELon 05-2 Calcium [Mass/Vol] 7.8 mg/dL Low 8.6-10.3 [facility] Comment on above: Order Comment: No: D o not add to previous draw Performed By: #### 8 [id number] #### [facility] [address] [place] [address], [place] Chloride [Moles/Vol] 107 mmol/L Normal 98-107 [facility] Comment on above: Order Comment: No: D o not add to previous draw Performed By: #### 8 [id number] #### [facility] [address] [place] [address], [place] CO2 [Moles/Vol] 26 mmol/L Normal 21-[address] [facility] Comment on above: Order Comment: No: D o not add to previous draw Performed By: #### 8 [id number] #### [facility] [address] [place] [address], [place] Creatinine [Mass/Vol] 1.14 mg/dL Normal 0.60-1.20 [facility] Comment on above: Order Comment: No: D o not add to previous draw Performed By: #### 8 [id number] #### [facility] [address] [place] [address], [place] eGFR- 55 ml/min/1.73sq m Abnormal >60 [facility] Comment on above: Order Comment: No: D o not add to previous draw Result Comment: Calc ulation may not be valid for patients over 70 years Performed By: #### 8 [id number] #### [facility] [address] [place] [address], [facility] eGFR- non- 45 ml/min/1.73sq m Abnormal >60 [facility] Comment on above: Order Comment: No: D o not add to previous draw Result Comment: Calc ulation may not be valid for patients over 70 years Performed By: #### 8 [id number] #### [facility] [address] [place] [address], [place] Glucose [Mass/Vol] 96 mg/dL Normal 70-100 [facility] Comment on above: Order Comment: No: D o not add to previous draw Performed By: #### 8 [id number] #### [facility] [address] [place] [address], [facility] Potassium [Moles/Vol] 4.0 mmol/L Normal 3.5-5.1 [facility] Comment on above: Order Comment: No: D o not add to previous draw Performed By: #### 8 [id number] #### [facility] [address] [place] [address], [place] Sodium [Moles/Vol] 139 mmol/L Normal 136-145 [facility] Comment on above: Order Comment: No: D o not add to previous draw Performed By: #### 8 [id number] #### [facility] [address] [place] [address], [facility] Urea nitrogen [Mass/Vol] 13 mg/dL Normal 7-25 [facility] Comment on above: Order Comment: No: D o not add to previous draw Performed By: #### 8 [id number] #### [facility] [address] [place] [id number], [facility] CBC COMPLETE BLOOD COUNTon 0 5- Erythrocyte distribution width (RBC) [Ratio] 19.3 % High 11.5-15.0 [facility] Comment on above: Order Comment: No: D o not add to previous draw Performed By: #### 5 0608 #### [facility] [address] [place] [address], [facility] Hematocrit (Bld) [Volume fraction] 27.9 % Low 36.0-45.0 [facility] Comment on above: Order Comment: No: D o not add to previous draw Performed By: #### 5 0608 #### [facility] [address] [facility] [place] [address], [facility] Hemoglobin (Bld) [Mass/Vol] 8.4 g/dL Low 12.0-15.0 [facility] Comment on above: Order Comment: No: D o not add to previous draw Performed By: #### 5 0608 #### [facility] [address] MCH (RBC) [Entitic mass] 29.9 pg Normal 27.0-33.0 [facility] Comment on above: Order Comment: No: D o not add to previous draw Performed By: #### 5 0608 #### [facility] [address] MCHC (RBC) [Mass/Vol] 30.1 g/dL Low 32.0-35.0 [facility] Comment on above: Order Comment: No: D o not add to previous draw Performed By: #### 5 0608 #### [facility] [address] [facility]. [address] MCV (RBC) [Entitic vol] 99.3 fL High 82.0-98.0 [facility] Comment on above: Order Comment: No: D o not add to previous draw Performed By: #### 5 0608 #### [facility] [address] [place] [address], [facility] Nucleated RBC/100 WBC (Bld) [Ratio] 0 % Normal 0-0 [facility] Comment on above: Order Comment: No: D o not add to previous draw Performed By: #### 5 0608 #### [facility] [address] [place] [address], [facility] PLAT CNT 281 10*3/uL Normal 150-400 [facility] Comment on above: Order Comment: No: D o not add to previous draw Performed By: #### 5 0608 #### [facility] [address] [place] [address], [facility] RBC (Bld) [#/Vol] 2.81 10*6/uL Low 3.80-5.00 [facility] Comment on above: Order Comment: No: D o not add to previous draw Performed By: #### 5 0608 #### [facility] [address] [place] [address], [facility] WBC (Bld) [#/Vol] 22.46 10*3/uL High 4.00-10.60 [facility] Comment on above: Order Comment: No: D o not add to previous draw Performed By: #### 5 0608 #### [facility] [address] [place] [id number], [facility] MAGNESIUM BLOODon 04-07-2022 Magnesium [Mass/Vol] 1.7 mg/dL Low 1.9-2.7 [facility] Comment on above: Order Comment: No: D o not add to previous draw Performed By: #### 8 [id number] #### [facility] [address] [place] [id number], [facility] POC GLUCOSE LABon 04-07-2022 Glucose [Mass/Vol] 192 mg/dL High 70-100 [facility] Comment on above: Performed By: #### 8 [id number] ####[facility] [address], [facility] Glucose [Mass/Vol] 139 mg/dL High 70-100 [facility] Comment on above: Performed By: #### 8 [id number] #### [facility] [address] [place] [address], [place] Glucose [Mass/Vol] 144 mg/dL High 70-100 [facility] Comment on above: Performed By: #### 8 [id number] #### [facility] [address] [place] [address], [place] Glucose [Mass/Vol] 111 mg/dL High 70-100 [facility] Comment on above: Performed By: #### 8 [id number] #### [facility] [address] [place] [address], [place] BASIC METABOLIC PANELon 05-2 0-2021 Calcium [Mass/Vol] 8.2 mg/dL Low 8.6-10.3 [facility] Comment on above: Order Comment: Bleed , altereed mental status Performed By: #### 0 0071, 42511, 46545, 39732, 37491 ####[facility] [place] [address], [place] Chloride [Moles/Vol] 106 mmol/L Normal 98-107 [facility] Comment on above: Order Comment: Bleed , altereed mental status Performed By: #### 0 0071, 21794, 03269, 64801, 67651 ####[facility] [place] [address], [place] CO2 [Moles/Vol] 27 mmol/L Normal 21-[address] [facility] Comment on above: Order Comment: Bleed , altereed mental status Performed By: #### 0 0071, 98171, 39701, 94564, 29388 ####[facility] [place] [address], [place] Creatinine [Mass/Vol] 1.07 mg/dL Normal 0.60-1.20 [facility] Comment on above: Order Comment: Bleed , altereed mental status Performed By: #### 0 0071, 21898, 55247, 53129, 24055 ####[facility] [place] [address], [facility] eGFR- 59 ml/min/1.73sq m Abnormal >60 [facility] Comment on above: Order Comment: Bleed , altereed mental status Result Comment: Calc ulation may not be valid for patients over 70 years Performed By: #### 0 0071, 59260, 18466, 15020, 65187 ####[facility] [place] [address], [facility] eGFR- non- 49 ml/min/1.73sq m Abnormal >60 [facility] Comment on above: Order Comment: Bleed , altereed mental status Result Comment: Calc ulation may not be valid for patients over 70 years Performed By: #### 0 0071, 25677, 06812, 21761, 02739 ####[facility] [place] [address], [facility] Glucose [Mass/Vol] 100 mg/dL Normal 70-100 [facility] Comment on above: Order Comment: Bleed , altereed mental status Performed By: #### 0 0071, 84051, 28927, 38965, 91595 ####[facility] [place] [address], [facility] Potassium [Moles/Vol] 4.0 mmol/L Normal 3.5-5.1 The [facility] Comment on above: Order Comment: Bleed , altereed mental status Performed By: #### 0 0071, 21908, 37181, 66746, 31705 ####[facility] [place] [address], [place] Sodium [Moles/Vol] 139 mmol/L Normal 136-145 [facility] Comment on above: Order Comment: Bleed , altereed mental status Performed By: #### 0 0071, 53337, 41494, 98629, 26297 ####[facility] Urea nitrogen [Mass/Vol] 15 mg/dL Normal 7-25 The [facility] Comment on above: Order Comment: Bleed , altereed mental status Performed By: #### 0 0071, 75465, 76481, 90104, 02097 ####[facility] BNP (B-TYPE NATRIURETIC PEPT KAELA)on 04-06-2022 Natriuretic peptide B (Bld) [Mass/Vol] 487 pg/mL High 0-100 [facility] Comment on above: Order Comment: Yes: Add to Previous draw if able Result Comment: Give n the appropriate clinical setting a BNP result of >100 pg/mL indicates congestive heart failure. Performed By: #### 8 [id number] #### [facility] [address] CBC W/DIFFon 04-06-2022 ABS IMM GRANS 0.5 10*3/uL High 0.0-0.2 The [facility] Comment on above: Order Comment: No: D o not add to previous draw Performed By: #### 8 [id number] #### [facility] [address] [place] [address], [facility] ABS NEUTROPHILS 18.4 10*3/uL High 1.6-7.6 The [facility] Comment on above: Order Comment: No: D o not add to previous draw Performed By: #### 8 [id number] #### [facility] [address] [facility] [place] [address], [facility] Basophils (Bld) [#/Vol] 0.1 10*3/uL Normal 0.0-0.2 The [facility] Comment on above: Order Comment: No: D o not add to previous draw Performed By: #### 8 [id number] #### [facility] [address] [facility] [place] [address], [facility] Basophils/100 WBC (Bld) 0.5 % Normal 0.0-1.0 The [facility] Comment on above: Order Comment: No: D o not add to previous draw Performed By: #### 8 [id number] #### [facility] [address] [facility] [place] [address], [facility] Eosinophils (Bld) [#/Vol] 0.0 10*3/uL Normal 0.0-0.5 The [facility] Comment on above: Order Comment: No: D o not add to previous draw Performed By: #### 8 [id number] #### [facility] [address] [facility] [place] [address], [facility] Eosinophils/100 WBC (Bld) 0.0 % Normal 0.0-6.0 The [facility] Comment on above: Order Comment: No: D o not add to previous draw Performed By: #### 8 [id number] #### [facility] [address] [facility] [address] Erythrocyte distribution width (RBC) [Ratio] 19.4 % High 11.5-15.0 The [facility] Comment on above: Order Comment: No: D o not add to previous draw Performed By: #### 8 [id number] #### [facility] [address] [facility] [place] [address], [facility] Hematocrit (Bld) [Volume fraction] 28.6 % Low 36.0-45.0 The [facility] Comment on above: Order Comment: No: D o not add to previous draw Performed By: #### 8 [id number] #### [facility] [address] [facility] [place] [address], [facility] Hemoglobin (Bld) [Mass/Vol] 8.8 g/dL Low 12.0-15.0 The [facility] Comment on above: Order Comment: No: D o not add to previous draw Performed By: #### 8 [id number] #### [facility] [address] [place] [address], [facility] IMMATURE GRANS 2.3 % High 0.0-1.0 The [facility] Comment on above: Order Comment: No: D o not add to previous draw Performed By: #### 8 [id number] #### [facility] [address] [facility] [place] [address], [facility] Lymphocytes (Bld) [#/Vol] 1.5 10*3/uL Normal 1.2-4.0 The [facility] Comment on above: Order Comment: No: D o not add to previous draw Performed By: #### 8 [id number] #### [facility] [address] [facility] [address], [facility] Lymphocytes/100 WBC (Bld) 7.2 % Low 20.0-45.0 The [facility] Comment on above: Order Comment: No: D o not add to previous draw Performed By: #### 8 [id number] #### [facility] [address] [facility] [place] [address], [facility] MCH (RBC) [Entitic mass] 30.1 pg Normal 27.0-33.0 The [facility] Comment on above: Order Comment: No: D o not add to previous draw Performed By: #### 8 [id number] #### [facility] [address] [facility] [place] [address], [facility] MCHC (RBC) [Mass/Vol] 30.8 g/dL Low 32.0-35.0 The [facility] Comment on above: Order Comment: No: D o not add to previous draw Performed By: #### 8 [id number] #### [facility] [address] [facility] [place] [id number], [facility] MCV (RBC) [Entitic vol] 97.9 fL Normal 82.0-98.0 The [facility] Comment on above: Order Comment: No: D o not add to previous draw Performed By: #### 8 [id number] #### [facility] [address] [place] [address], [facility] Monocytes (Bld) [#/Vol] 0.3 10*3/uL Normal 0.1-1.0 The [facility] Comment on above: Order Comment: No: D o not add to previous draw Performed By: #### 8 [id number] #### [facility] [address] [place] [id number], [facility] MONOS 1.6 % Low 5.0-12.0 The [facility] Comment on above: Order Comment: No: D o not add to previous draw Performed By: #### 8 [id number] #### [facility] [address] [place] [address], [facility] Neutrophils/100 WBC (Bld) 88.4 % High 40.0-72.0 The [facility] Comment on above: Order Comment: No: D o not add to previous draw Performed By: #### 8 [id number] #### [facility] [address] [place] [address], [facility] Nucleated RBC/100 WBC (Bld) [Ratio] 0 % Normal 0-0 The [facility] Comment on above: Order Comment: No: D o not add to previous draw Performed By: #### 8 [id number] #### [facility] [address] [place] [address], [facility] PLAT CNT 279 10*3/uL Normal 150-400 [facility] Comment on above: Order Comment: No: D o not add to previous draw Performed By: #### 8 [id number] #### [facility] [address] [place] [address], [facility] RBC (Bld) [#/Vol] 2.92 10*6/uL Low 3.80-5.00 The [facility] Comment on above: Order Comment: No: D o not add to previous draw Performed By: #### 8 [id number] #### [facility] [address] [place] [address], [place] WBC (Bld) [#/Vol] 20.84 10*3/uL High 4.00-10.60 The [facility] Comment on above: Order Comment: No: D o not add to previous draw Performed By: #### 8 [id number] #### [facility] [address] [place] [address], [facility] DIGOXINon 04-06-2022 Digoxin [Mass/Vol] 1.0 ng/mL Normal 0.7-2.0 [facility] Comment on above: Performed By: #### 0 0071, 96016, 33064, 49439, 33332 ####[facility] [place] [address], [facility] LIPASE BLOODon 04-06-2022 LIPASE 68 Units/L Normal 11-82 The [facility] Comment on above: Performed By: #### 0 0071, 31841, 34453, 03123, 26341 ####[facility] [place] [address], [facility] MAGNESIUM BLOODon 04-06-2022 Magnesium [Mass/Vol] 1.6 mg/dL Low 1.9-2.7 The [facility] Comment on above: Order Comment: Bleed , altereed mental status Performed By: #### 0 0071, 73137, 59483, 21932, 74483 ####[facility] [place] [address], [facility] PHOSPHORUS BLOODon 2 Phosphate [Mass/Vol] 3.5 mg/dL Normal 2.5-5.0 The [facility] Comment on above: Order Comment: No: D o not add to previous draw Performed By: #### 8 [id number] #### [facility] [address] [place] [address], [place] POC GLUCOSE LABon 04-06-2022 Glucose [Mass/Vol] 121 mg/dL High 70-100 [facility] Comment on above: Performed By: #### 3 0313 #### [facility] [address] [place] [address], [place] Glucose [Mass/Vol] 171 mg/dL High 70-100 [facility] Comment on above: Performed By: #### 8 [id number] #### [facility] [address] [place] [address], [facility] Glucose [Mass/Vol] 178 mg/dL High 70-100 [facility] Comment on above: Performed By: #### 8 [id number] #### [facility] [address] [facility] [place] [address], [facility] Glucose [Mass/Vol] 102 mg/dL High 70-100 [facility] Comment on above: Performed By: #### 5 0608 #### [facility] [address] [facility]. [address] APTTon 04-05-2022 aPTT Coag (Bld) [Time] 29.7 s Normal 25.0-35.0 The [facility] Comment on above: Order Comment: No: [...] PURPOSE. Performed By: #### 8 [id number] #### [facility] [address] [facility] [place] [address], [facility] CBC W/DIFFon 04-05-2022 ABS IMM GRANS 0.4 10*3/uL High 0.0-0.2 The [facility] Comment on above: Order Comment: No: D o not add to previous draw Performed By: #### 8 [id number] #### [facility] [address] [place] [address], [facility] ABS NEUTROPHILS 19.7 10*3/uL High 1.6-7.6 The [facility] Comment on above: Order Comment: No: D o not add to previous draw Performed By: #### 8 [id number] #### [facility] [address] [place] [address], [facility] ANISO Moderate Normal The [facility] Comment on above: Order Comment: No: D o not add to previous draw Performed By: #### 8 [id number] #### [facility] [address] [place] [id number], [facility] Basophils (Bld) [#/Vol] 0.2 10*3/uL Normal 0.0-0.2 The [facility] Comment on above: Order Comment: No: D o not add to previous draw Performed By: #### 8 [id number] #### [facility] [address] [place] [address], [facility] Basophils/100 WBC (Bld) 0.7 % Normal 0.0-1.0 The [facility] Comment on above: Order Comment: No: D o not add to previous draw Performed By: #### 8 [id number] #### [facility] [address] [place] [id number], [facility] Eosinophils (Bld) [#/Vol] 0.0 10*3/uL Normal 0.0-0.5 The [facility] Comment on above: Order Comment: No: D o not add to previous draw Performed By: #### 8 [id number] #### [facility] [address] [place] [address], [facility] Eosinophils/100 WBC (Bld) 0.1 % Normal 0.0-6.0 The [facility] Comment on above: Order Comment: No: D o not add to previous draw Performed By: #### 8 [id number] #### [facility] [address] [place] [address], [facility] Erythrocyte distribution width (RBC) [Ratio] 19.5 % High 11.5-15.0 The [facility] Comment on above: Order Comment: No: D o not add to previous draw Performed By: #### 8 [id number] #### [facility] [address] [place] [address], [facility] Hematocrit (Bld) [Volume fraction] 27.8 % Low 36.0-45.0 The [facility] Comment on above: Order Comment: No: D o not add to previous draw Performed By: #### 8 [id number] #### [facility] [address] [place] [id number], [facility] Hemoglobin (Bld) [Mass/Vol] 8.6 g/dL Low 12.0-15.0 The [facility] Comment on above: Order Comment: No: D o not add to previous draw Performed By: #### 8 [id number] #### [facility] [address] [facility] [place] [address], [facility] IMMATURE GRANS 2.0 % High 0.0-1.0 The [facility] Comment on above: Order Comment: No: D o not add to previous draw Performed By: #### 8 [id number] #### [facility] [address] [facility] [place] [address], [facility] Lymphocytes (Bld) [#/Vol] 1.4 10*3/uL Normal 1.2-4.0 The [facility] Comment on above: Order Comment: No: D o not add to previous draw Performed By: #### 8 [id number] #### [facility] [address] [place] [address], [facility] Lymphocytes/100 WBC (Bld) 6.5 % Low 20.0-45.0 The [facility] Comment on above: Order Comment: No: D o not add to previous draw Performed By: #### 8 [id number] #### [facility] [address] [place] [address], [facility] MCH (RBC) [Entitic mass] 30.3 pg Normal 27.0-33.0 [facility] Comment on above: Order Comment: No: D o not add to previous draw Performed By: #### 8 [id number] #### [facility] [address] [place] [id number], [facility] MCHC (RBC) [Mass/Vol] 30.9 g/dL Low 32.0-35.0 [facility] Comment on above: Order Comment: No: D o not add to previous draw Performed By: #### 8 [id number] #### [facility] [address] [place] [address], [facility] MCV (RBC) [Entitic vol] 97.9 fL Normal 82.0-98.0 The [facility] Comment on above: Order Comment: No: D o not add to previous draw Performed By: #### 8 [id number] #### [facility] [address] [place] [id number], [facility] Monocytes (Bld) [#/Vol] 0.4 10*3/uL Normal 0.1-1.0 The [facility] Comment on above: Order Comment: No: D o not add to previous draw Performed By: #### 8 [id number] #### [facility] [address] [place] [id number], [facility] MONOS 1.9 % Low 5.0-12.0 The [facility] Comment on above: Order Comment: No: D o not add to previous draw Performed By: #### 8 [id number] #### [facility] [address] [place] [address], [facility] Neutrophils/100 WBC (Bld) 88.8 % High 40.0-72.0 The [facility] Comment on above: Order Comment: No: D o not add to previous draw Performed By: #### 8 [id number] #### [facility] [address] [place] [id number], [facility] Nucleated RBC/100 WBC (Bld) [Ratio] 0 % Normal 0-0 [facility] Comment on above: Order Comment: No: D o not add to previous draw Performed By: #### 8 [id number] #### [facility] [address] [place] [address], [facility] PLAT CNT 303 10*3/uL Normal 150-400 [facility] Comment on above: Order Comment: No: D o not add to previous draw Performed By: #### 8 [id number] #### [facility] [address] [facility]. [address] POIK Slight Normal The [facility] Comment on above: Order Comment: No: D o not add to previous draw Performed By: #### 8 [id number] #### [facility] [address] [place] [address], [facility] POLY Slight Normal The [facility] Comment on above: Order Comment: No: D o not add to previous draw Performed By: #### 8 [id number] #### [facility] [address] RBC (Bld) [#/Vol] 2.84 10*6/uL Low 3.80-5.00 The [facility] Comment on above: Order Comment: No: D o not add to previous draw Performed By: #### 8 [id number] #### [facility] [address] [place] [address], [facility] WBC (Bld) [#/Vol] 22.20 10*3/uL High 4.00-10.60 [facility] Comment on above: Order Comment: No: D o not add to previous draw Performed By: #### 8 [id number] #### [facility] [address] COMP METABOLIC PANELon 04-05 Albumin [Mass/Vol] 2.5 g/dL Low 3.5-5.7 [facility] Comment on above: Order Comment: The A ptima SARS-CoV-2 assay is a nucleic acid amplification test intended for the qualitative detection of RNA from SARS-CoV-2 isolated and purified from nasopharyngeal (TRAIN CALLER),oropharyngeal (OP), nasal swab, sputum, and bronchoalveolar lavage (BAL) specimens from patients with signs and symptoms of infection who are suspected of COVID-19. Results are for the identification of SARS-CoV-2 RNA. The SARS-CoV-2 RNA is generally detectable during the acute phase of infection. The Aptima SARS-CoV-2 Assay on the [employer] system is intended for use by laboratory personnel specifically instructed and trained in the operation of the [employer] system. The Aptima SARS-CoV-2 assay is [...] information. Performed By: #### 3 1792 #### [facility] [address] ALKALINE PHOSPH 100 IU/L Normal 34-[address] [facility] Comment on above: Order Comment: The A ptima SARS-CoV-2 assay is a nucleic acid amplification test intended for the qualitative detection of RNA from SARS-CoV-2 isolated and purified from nasopharyngeal (TRAIN CALLER),oropharyngeal (OP), nasal swab, sputum, and bronchoalveolar lavage (BAL) specimens from patients with signs and symptoms of infection who are suspected of COVID-19. Results are for the identification of SARS-CoV-2 RNA. The SARS-CoV-2 RNA is generally detectable during the acute phase of infection. The Aptima SARS-CoV-2 Assay on the [employer] system is intended for use by laboratory personnel specifically instructed and trained in the operation of the [employer] system. The Aptima SARS-CoV-2 assay is [...] information. Performed By: #### 3 1792 #### [facility] [address] [facility]. [place], [place] [id number] [place] [address] ALT [Catalytic activity/Vol] 13 U/L Normal 7-52 The [facility] Comment on above: Order Comment: The A ptima SARS-CoV-2 assay is a nucleic acid amplification test intended for the qualitative detection of RNA from SARS-CoV-2 isolated and purified from nasopharyngeal (TRAIN CALLER),oropharyngeal (OP), nasal swab, sputum, and bronchoalveolar lavage (BAL) specimens from patients with signs and symptoms of infection who are suspected of COVID-19. Results are for the identification of SARS-CoV-2 RNA. The SARS-CoV-2 RNA is generally detectable during the acute phase of infection. The Aptima SARS-CoV-2 Assay on the [employer]s system is intended for use by laboratory personnel specifically instructed and trained in the operation of the [employer] Fusion system. The Aptima SARS-CoV-2 assay is [...] information. Performed By: #### 3 1792 #### [facility] [address] [facility] [place] [place] [address], [facility] AST [Catalytic activity/Vol] 12 U/L Low 13-39 The [facility] Comment on above: Order Comment: The A ptima SARS-CoV-2 assay is a nucleic acid amplification test intended for the qualitative detection of RNA from SARS-CoV-2 isolated and purified from nasopharyngeal (TRAIN CALLER),oropharyngeal (OP), nasal swab, sputum, and bronchoalveolar lavage (BAL) specimens from patients with signs and symptoms of infection who are suspected of COVID-19. Results are for the identification of SARS-CoV-2 RNA. The SARS-CoV-2 RNA is generally detectable during the acute phase of infection. The Aptima SARS-CoV-2 Assay on the [employer] system is intended for use by laboratory personnel specifically instructed and trained in the operation of the [employer] system. The Aptima SARS-CoV-2 assay is [...] information. Performed By: #### 3 1792 #### [facility] [address] Bilirubin [Mass/Vol] 0.8 mg/dL Normal 0.3-1.0 The [facility] Comment on above: Order Comment: The A ptima SARS-CoV-2 assay is a nucleic acid amplification test intended for the qualitative detection of RNA from SARS-CoV-2 isolated and purified from nasopharyngeal (TRAIN CALLER),oropharyngeal (OP), nasal swab, sputum, and bronchoalveolar lavage (BAL) specimens from patients with signs and symptoms of infection who are suspected of COVID-19. Results are for the identification of SARS-CoV-2 RNA. The SARS-CoV-2 RNA is generally detectable during the acute phase of infection. The Aptima SARS-CoV-2 Assay on the [employer] system is intended for use by laboratory personnel specifically instructed and trained in the operation of the [employer] system. The Aptima SARS-CoV-2 assay is [...] information. Performed By: #### 3 1792 #### [facility] [address] [facility] Calcium [Mass/Vol] 8.1 mg/dL Low 8.6-10.3 [facility] Comment on above: Order Comment: The A ptima SARS-CoV-2 assay is a nucleic acid amplification test intended for the qualitative detection of RNA from SARS-CoV-2 isolated and purified from nasopharyngeal (TRAIN CALLER),oropharyngeal (OP), nasal swab, sputum, and bronchoalveolar lavage (BAL) specimens from patients with signs and symptoms of infection who are suspected of COVID-19. Results are for the identification of SARS-CoV-2 RNA. The SARS-CoV-2 RNA is generally detectable during the acute phase of infection. The Aptima SARS-CoV-2 Assay on the [employer] Fusion system is intended for use by laboratory personnel specifically instructed and trained in the operation of the [employer] Fusion system. The Aptima SARS-CoV-2 assay is [...] information. Performed By: #### 3 1792 #### [facility] [employer]. [address] Chloride [Moles/Vol] 106 mmol/L Normal 98-107 The [facility] Comment on above: Order Comment: The A ptima SARS-CoV-2 assay is a nucleic acid amplification test intended for the qualitative detection of RNA from SARS-CoV-2 isolated and purified from nasopharyngeal (TRAIN CALLER),oropharyngeal (OP), nasal swab, sputum, and bronchoalveolar lavage (BAL) specimens from patients with signs and symptoms of infection who are suspected of COVID-19. Results are for the identification of SARS-CoV-2 RNA. The SARS-CoV-2 RNA is generally detectable during the acute phase of infection. The Aptima SARS-CoV-2 Assay on the [employer] system is intended for use by laboratory personnel specifically instructed and trained in the operation of the [employer] system. The Aptima SARS-CoV-2 assay is [...] information. Performed By: #### 3 1792 #### [facility] [address] [place] [address], [facility] CO2 [Moles/Vol] 26 mmol/L Normal 21-31 [facility] Comment on above: Order Comment: The A ptima SARS-CoV-2 assay is a nucleic acid amplification test intended for the qualitative detection of RNA from SARS-CoV-2 isolated and purified from nasopharyngeal (TRAIN CALLER),oropharyngeal (OP), nasal swab, sputum, and bronchoalveolar lavage (BAL) specimens from patients with signs and symptoms of infection who are suspected of COVID-19. Results are for the identification of SARS-CoV-2 RNA. The SARS-CoV-2 RNA is generally detectable during the acute phase of infection. The Aptima SARS-CoV-2 Assay on the [employer] system is intended for use by laboratory personnel specifically instructed and trained in the operation of the [employer] system. The Aptima SARS-CoV-2 assay is [...] information. Performed By: #### 3 [id number] #### [facility] [address] [place] [address], [facility] Creatinine [Mass/Vol] 1.24 mg/dL High 0.60-1.20 [facility] Comment on above: Order Comment: The A ptima SARS-CoV-2 assay is a nucleic acid amplification test intended for the qualitative detection of RNA from SARS-CoV-2 isolated and purified from nasopharyngeal (TRAIN CALLER),oropharyngeal (OP), nasal swab, sputum, and bronchoalveolar lavage (BAL) specimens from patients with signs and symptoms of infection who are suspected of COVID-19. Results are for the identification of SARS-CoV-2 RNA. The SARS-CoV-2 RNA is generally detectable during the acute phase of infection. The Aptima SARS-CoV-2 Assay on the [employer] system is intended for use by laboratory personnel specifically instructed and trained in the operation of the [employer] system. The Aptima SARS-CoV-2 assay is [...] information. Performed By: #### 3 [id number] #### [facility] [address] [facility] eGFR- 50 ml/min/1.73sq m Abnormal >60 [facility] Comment on above: Order Comment: The A ptima SARS-CoV-2 assay is a nucleic acid amplification test intended for the qualitative detection of RNA from SARS-CoV-2 isolated and purified from nasopharyngeal (TRAIN CALLER),oropharyngeal (OP), nasal swab, sputum, and bronchoalveolar lavage (BAL) specimens from patients with signs and symptoms of infection who are suspected of COVID-19. Results are for the identification of SARS-CoV-2 RNA. The SARS-CoV-2 RNA is generally detectable during the acute phase of infection. The Aptima SARS-CoV-2 Assay on the [employer] system is intended for use by laboratory personnel specifically instructed and trained in the operation of the [employer] system. The Aptima SARS-CoV-2 assay is [...] years Performed By: #### 3 [id number] #### [facility] [address] [facility] [place] [address], [facility] eGFR- non- 42 ml/min/1.73sq m Abnormal >60 [facility] Comment on above: Order Comment: The A ptima SARS-CoV-2 assay is a nucleic acid amplification test intended for the qualitative detection of RNA from SARS-CoV-2 isolated and purified from nasopharyngeal (TRAIN CALLER),oropharyngeal (OP), nasal swab, sputum, and bronchoalveolar lavage (BAL) specimens from patients with signs and symptoms of infection who are suspected of COVID-19. Results are for the identification of SARS-CoV-2 RNA. The SARS-CoV-2 RNA is generally detectable during the acute phase of infection. The Aptima SARS-CoV-2 Assay on the [employer] system is intended for use by laboratory personnel specifically instructed and trained in the operation of the [employer] system. The Aptima SARS-CoV-2 assay is [...] years Performed By: #### 3 [id number] #### [facility] [address] [place] [address], [facility] Glucose [Mass/Vol] 95 mg/dL Normal 70-100 [facility] Comment on above: Order Comment: The A ptima SARS-CoV-2 assay is a nucleic acid amplification test intended for the qualitative detection of RNA from SARS-CoV-2 isolated and purified from nasopharyngeal (TRAIN CALLER),oropharyngeal (OP), nasal swab, sputum, and bronchoalveolar lavage (BAL) specimens from patients with signs and symptoms of infection who are suspected of COVID-19. Results are for the identification of SARS-CoV-2 RNA. The SARS-CoV-2 RNA is generally detectable during the acute phase of infection. The Aptima SARS-CoV-2 Assay on the [employer] system is intended for use by laboratory personnel specifically instructed and trained in the operation of the [employer] system. The Aptima SARS-CoV-2 assay is [...] information. Performed By: #### 3 1792 #### [address] Potassium [Moles/Vol] 4.1 mmol/L Normal 3.5-5.1 [facility] Comment on above: Order Comment: The A ptima SARS-CoV-2 assay is a nucleic acid amplification test intended for the qualitative detection of RNA from SARS-CoV-2 isolated and purified from nasopharyngeal (TRAIN CALLER),oropharyngeal (OP), nasal swab, sputum, and bronchoalveolar lavage (BAL) specimens from patients with signs and symptoms of infection who are suspected of COVID-19. Results are for the identification of SARS-CoV-2 RNA. The SARS-CoV-2 RNA is generally detectable during the acute phase of infection. The Aptima SARS-CoV-2 Assay on the [employer] system is intended for use by laboratory personnel specifically instructed and trained in the operation of the [employer] system. The Aptima SARS-CoV-2 assay is [...] information. Performed By: #### 3 [id number] #### [facility] [address] [facility] [address], [facility] Protein [Mass/Vol] 5.0 g/dL Low 6.0-8.3 [facility] Comment on above: Order Comment: The A ptima SARS-CoV-2 assay is a nucleic acid amplification test intended for the qualitative detection of RNA from SARS-CoV-2 isolated and purified from nasopharyngeal (TRAIN CALLER),oropharyngeal (OP), nasal swab, sputum, and bronchoalveolar lavage (BAL) specimens from patients with signs and symptoms of infection who are suspected of COVID-19. Results are for the identification of SARS-CoV-2 RNA. The SARS-CoV-2 RNA is generally detectable during the acute phase of infection. The Aptima SARS-CoV-2 Assay on the [employer] system is intended for use by laboratory personnel specifically instructed and trained in the operation of the [employer] system. The Aptima SARS-CoV-2 assay is [...] and epidemiological information. Performed By: #### 3 1796 #### [facility] [address] [facility] [place] [address], [facility] Sodium [Moles/Vol] 138 mmol/L Normal 136-145 [facility] Comment on above: Order Comment: The A ptima SARS-CoV-2 assay is a nucleic acid amplification test intended for the qualitative detection of RNA from SARS-CoV-2 isolated and purified from nasopharyngeal (TRAIN CALLER),oropharyngeal (OP), nasal swab, sputum, and bronchoalveolar lavage (BAL) specimens from patients with signs and symptoms of infection who are suspected of COVID-19. Results are for the identification of SARS-CoV-2 RNA. The SARS-CoV-2 RNA is generally detectable during the acute phase of infection. The Aptima SARS-CoV-2 Assay on the [employer] system is intended for use by laboratory personnel specifically instructed and trained in the operation of the [employer] system. The Aptima SARS-CoV-2 assay is [...] information. Performed By: #### 3 [id number] #### [facility] [address] Urea nitrogen [Mass/Vol] 24 mg/dL Normal 7-25 [facility] Comment on above: Order Comment: The A ptima SARS-CoV-2 assay is a nucleic acid amplification test intended for the qualitative detection of RNA from SARS-CoV-2 isolated and purified from nasopharyngeal (TRAIN CALLER),oropharyngeal (OP), nasal swab, sputum, and bronchoalveolar lavage (BAL) specimens from patients with signs and symptoms of infection who are suspected of COVID-19. Results are for the identification of SARS-CoV-2 RNA. The SARS-CoV-2 RNA is generally detectable during the acute phase of infection. The Aptima SARS-CoV-2 Assay on the [employer] system is intended for use by laboratory personnel specifically instructed and trained in the operation of the [employer] system. The Aptima SARS-CoV-2 assay is [...] information. Performed By: #### 3 [id number] #### [facility] [address] [facility] [place] [address], [facility] HEMOGLOBINon 04-05-2022 Hemoglobin (Bld) [Mass/Vol] 8.9 g/dL Low 12.0-15.0 [facility] Comment on above: Order Comment: No: D o not add to previous draw Performed By: #### 8 [id number] #### [facility] [address] [facility] [place] [address], [facility] Hemoglobin (Bld) [Mass/Vol] 10.1 g/dL Low 12.0-15.0 [facility] Comment on above: Order Comment: No: D o not add to previous draw Performed By: #### 8 [id number] #### [facility] [address] [place] [address], [facility] MAGNESIUM BLOODon 04-05-2022 Magnesium [Mass/Vol] 1.6 mg/dL Low 1.9-2.7 [facility] Comment on above: Order Comment: The A ptima SARS-CoV-2 assay is a nucleic acid amplification test intended for the qualitative detection of RNA from SARS-CoV-2 isolated and purified from nasopharyngeal (TRAIN CALLER),oropharyngeal (OP), nasal swab, sputum, and bronchoalveolar lavage (BAL) specimens from patients with signs and symptoms of infection who are suspected of COVID-19. Results are for the identification of SARS-CoV-2 RNA. The SARS-CoV-2 RNA is generally detectable during the acute phase of infection. The Aptima SARS-CoV-2 Assay on the [employer] system is intended for use by laboratory personnel specifically instructed and trained in the operation of the [employer] system. The Aptima SARS-CoV-2 assay is [...] information. Performed By: #### 3 [id number] #### [facility] [address] [facility] [place] [address], [facility] PHOSPHORUS BLOODon 2 Phosphate [Mass/Vol] 3.5 mg/dL Normal 2.5-5.0 [facility] Comment on above: Order Comment: The A ptima SARS-CoV-2 assay is a nucleic acid amplification test intended for the qualitative detection of RNA from SARS-CoV-2 isolated and purified from nasopharyngeal (TRAIN CALLER),oropharyngeal (OP), nasal swab, sputum, and bronchoalveolar lavage (BAL) specimens from patients with signs and symptoms of infection who are suspected of COVID-19. Results are for the identification of SARS-CoV-2 RNA. The SARS-CoV-2 RNA is generally detectable during the acute phase of infection. The Aptima SARS-CoV-2 Assay on the [employer] system is intended for use by laboratory personnel specifically instructed and trained in the operation of the [employer] system. The Aptima SARS-CoV-2 assay is [...] information. Performed By: #### 3 [id number] #### [facility] [address] [place] [address], [facility] POC GLUCOSE LABon 04-05-2022 Glucose [Mass/Vol] 115 mg/dL High 70-100 [facility] Comment on above: Performed By: #### 5 [id number] #### [facility] [address] [place] [address], [place] Glucose [Mass/Vol] 119 mg/dL High 70-100 [facility] Comment on above: Performed By: #### 8 [id number] #### [facility] [address] [place] [address], [place] Glucose [Mass/Vol] 145 mg/dL High 70-100 [facility] Comment on above: Performed By: #### 8 [id number] #### [facility] [address] [place] [address], [place] Glucose [Mass/Vol] 108 mg/dL High 70-100 [facility] Comment on above: Performed By: #### 8 [id number] #### [facility] [address] [place] [address], [place] Glucose [Mass/Vol] 117 mg/dL High 70-100 [facility] Comment on above: Performed By: #### 8 [id number] #### [facility] [address] [place] [address], [facility] PROTHROMBIN TIMEon 2 INR Coag (PPP) [Relative time] 1.13 {INR} Normal 0.91-1.16 [facility] Comment on above: Order Comment: No: [...] 1995;[id number]. Performed By: #### 8 [id number] #### [facility] [address] [place] [address], [facility] PT Coag (PPP) [Time] 14.5 s Normal 12.3-14.8 [facility] Comment on above: Order Comment: No: D o not add to previous draw Result Comment: ALL RESULTS MUST BE INTERPRETED WITH RESPECT TO BLOOD DRAWING ARTIFACT OR DILUTION ERROR OF ANTICOAGULANT AT THE TIME OF SAMPLING. Performed By: #### 8 [id number] #### [facility] [address] [facility] APTTon 04-04-2022 aPTT Coag (Bld) [Time] 31.2 s Normal 25.0-35.0 [facility] Comment on above: Order Comment: [...] PURPOSE. Performed By: #### 8 [id number] #### [facility] [address] ARTERIAL BLOOD GAS WITH ICAo n 04-04-2022 BASE EXCESS 0 mmol/L Normal -2-3 [facility] Comment on above: Performed By: #### 8 [id number] #### [facility] [address] [facility] [place] [address], [facility] DEL[employer] NASAL CANNULA Normal [facility] Comment on above: Performed By: #### 8 [id number] #### [facility] [address] [place] [address], [facility] HCO3 (Bld) [Moles/Vol] 26 mmol/L Normal 21-28 [facility] Comment on above: Performed By: #### 8 [id number] #### [facility] [address] [place] [address], [facility] IONIZED CALCIUM 1.18 mmol/L Normal 1.13-1.32 [facility] Comment on above: Performed By: #### 8 [id number] #### [facility] [address] [facility] [place] [address], [facility] LPM 2.0 LPM Normal [facility] Comment on above: Performed By: #### 8 [id number] #### [facility] [address] [facility] [place] [address], [facility] Oxygen (Bld) [Partial pressure] 74 mm[Hg] Low 83-108 [facility] Comment on above: Performed By: #### 8 [id number] #### [facility] [address] [facility] Oxygen saturation in Blood 95.4 % Normal 94.0-97.0 [facility] Comment on above: Performed By: #### 8 [id number] #### [facility] [address] [facility] [place] [address], [facility] PCO2 45 mmHg Normal 35-45 [facility] Comment on above: Performed By: #### 8 [id number] #### [facility] [address] [facility] [place] [address], [facility] pH (Bld) 7.37 [pH] Normal 7.35-7.45 [facility] Comment on above: Performed By: #### 8 [id number] #### [facility] [address] [facility] [place] [address], [facility] CBC W/DIFFon 04-04-2022 ABS IMM GRANS 0.7 10*3/uL High 0.0-0.2 The [facility] Comment on above: Order Comment: No: D o not add to previous draw Performed By: #### 8 [id number] #### [facility] [address] [place] [address], [facility] ABS NEUTROPHILS 19.9 10*3/uL High 1.6-7.6 The [facility] Comment on above: Order Comment: No: D o not add to previous draw Performed By: #### 8 [id number] #### [facility] [address] [place] [address], [facility] ANISO Moderate Normal [facility] Comment on above: Order Comment: No: D o not add to previous draw Performed By: #### 8 [id number] #### [facility] [address] [place] [address], [facility] Basophils (Bld) [#/Vol] 0.2 10*3/uL Normal 0.0-0.2 [facility] Comment on above: Order Comment: No: D o not add to previous draw Performed By: #### 8 [id number] #### [facility] [address] [place] [address], [facility] Basophils/100 WBC (Bld) 0.7 % Normal 0.0-1.0 [facility] Comment on above: Order Comment: No: D o not add to previous draw Performed By: #### 8 [id number] #### [facility] [address] [place] [address], [facility] Eosinophils (Bld) [#/Vol] 0.0 10*3/uL Normal 0.0-0.5 [facility] Comment on above: Order Comment: No: D o not add to previous draw Performed By: #### 8 [id number] #### [facility] [address] [place] [address], [facility] Eosinophils/100 WBC (Bld) 0.1 % Normal 0.0-6.0 [facility] Comment on above: Order Comment: No: D o not add to previous draw Performed By: #### 8 [id number] #### [facility] [address] [place] [address], [facility] Erythrocyte distribution width (RBC) [Ratio] 20.2 % High 11.5-15.0 [facility] Comment on above: Order Comment: No: D o not add to previous draw Performed By: #### 8 [id number] #### [facility] [address] [place] [id number], [facility] Hematocrit (Bld) [Volume fraction] 28.0 % Low 36.0-45.0 [facility] Comment on above: Order Comment: No: D o not add to previous draw Performed By: #### 8 [id number] #### [facility] [address] [place] [id number], [facility] Hemoglobin (Bld) [Mass/Vol] 8.8 g/dL Low 12.0-15.0 [facility] Comment on above: Order Comment: No: D o not add to previous draw Performed By: #### 8 [id number] #### [facility] [address] [place] [address], [facility] IMMATURE GRANS 3.0 % High 0.0-1.0 [facility] Comment on above: Order Comment: No: D o not add to previous draw Performed By: #### 8 [id number] #### [facility] [address] [place] [address], [facility] Lymphocytes (Bld) [#/Vol] 1.1 10*3/uL Low 1.2-4.0 [facility] Comment on above: Order Comment: No: D o not add to previous draw Performed By: #### 8 [id number] #### [facility] [address] [place] [id number], [facility] Lymphocytes/100 WBC (Bld) 5.1 % Low 20.0-45.0 [facility] Comment on above: Order Comment: No: D o not add to previous draw Performed By: #### 8 [id number] #### [facility] [address] [place] [id number], [facility] MCH (RBC) [Entitic mass] 29.9 pg Normal 27.0-33.0 [facility] Comment on above: Order Comment: No: D o not add to previous draw Performed By: #### 8 [id number] #### [facility] [address] [place] [id number], [facility] MCHC (RBC) [Mass/Vol] 31.4 g/dL Low 32.0-35.0 [facility] Comment on above: Order Comment: No: D o not add to previous draw Performed By: #### 8 [id number] #### [facility] [address] [place] [id number], [facility] MCV (RBC) [Entitic vol] 95.2 fL Normal 82.0-98.0 [facility] Comment on above: Order Comment: No: D o not add to previous draw Performed By: #### 8 [id number] #### [facility] [address] [facility] [place] [id number], [facility] Monocytes (Bld) [#/Vol] 0.4 10*3/uL Normal 0.1-1.0 [facility] Comment on above: Order Comment: No: D o not add to previous draw Performed By: #### 8 [id number] #### [facility] [address] [facility] [place] [address], [facility] MONOS 2.0 % Low 5.0-12.0 [facility] Comment on above: Order Comment: No: D o not add to previous draw Performed By: #### 8 [id number] #### [facility] [address] [facility] [place] [address], [facility] Neutrophils/100 WBC (Bld) 89.1 % High 40.0-72.0 [facility] Comment on above: Order Comment: No: D o not add to previous draw Performed By: #### 8 [id number] #### [facility] [address] [place] [address], [facility] Nucleated RBC/100 WBC (Bld) [Ratio] 0 % Normal 0-0 [facility] Comment on above: Order Comment: No: D o not add to previous draw Performed By: #### 8 [id number] #### [facility] [address] [place] [address], [facility] PLAT CNT 303 10*3/uL Normal 150-400 [facility] Comment on above: Order Comment: No: D o not add to previous draw Performed By: #### 8 [id number] #### [facility] [address] [place] [address], [facility] POIK Slight Normal [facility] Comment on above: Order Comment: No: D o not add to previous draw Performed By: #### 8 [id number] #### [facility] [address] [place] [address], [facility] POLY Slight Normal [facility] Comment on above: Order Comment: No: D o not add to previous draw Performed By: #### 8 [id number] #### [facility] [address] [place] [id number], [facility] RBC (Bld) [#/Vol] 2.94 10*6/uL Low 3.80-5.00 [facility] Comment on above: Order Comment: No: D o not add to previous draw Performed By: #### 8 [id number] #### [facility] [address] [place] [address], [place] WBC (Bld) [#/Vol] 22.35 10*3/uL High 4.00-10.60 [facility] Comment on above: Order Comment: No: D o not add to previous draw Performed By: #### 8 [id number] #### [facility] [address] [place] [address], [facility] COMP METABOLIC PANELon 04-04 Albumin [Mass/Vol] 2.4 g/dL Low 3.5-5.7 [facility] Comment on above: Order Comment: No: D o not add to previous draw Performed By: #### 8 [id number] #### [facility] [address] [place] [address], [place] ALKALINE PHOSPH 92 IU/L Normal 34-[address] [facility] Comment on above: Order Comment: No: D o not add to previous draw Performed By: #### 8 [id number] #### [facility] [address] [place] [address], [place] ALT [Catalytic activity/Vol] 12 U/L Normal 7-52 [facility] Comment on above: Order Comment: No: D o not add to previous draw Performed By: #### 8 [id number] #### [facility] [address] [place] [address], [place] AST [Catalytic activity/Vol] 10 U/L Low 13-39 [facility] Comment on above: Order Comment: No: D o not add to previous draw Performed By: #### 8 [id number] #### [facility] [address] [place] [address], [place] Bilirubin [Mass/Vol] 1.0 mg/dL Normal 0.3-1.0 [facility] Comment on above: Order Comment: No: D o not add to previous draw Performed By: #### 8 [id number] #### [facility] [address] [place] [address], [place] Calcium [Mass/Vol] 7.7 mg/dL Low 8.6-10.3 [facility] Comment on above: Order Comment: No: D o not add to previous draw Performed By: #### 8 [id number] #### [facility] [address] [place] [address], [place] Chloride [Moles/Vol] 110 mmol/L High 98-107 [facility] Comment on above: Order Comment: No: D o not add to previous draw Performed By: #### 8 [id number] #### [facility] [address] [place] [address], [place] CO2 [Moles/Vol] 24 mmol/L Normal 21-31 [facility] Comment on above: Order Comment: No: D o not add to previous draw Performed By: #### 8 [id number] #### [facility] [address] [place] [address], [place] Creatinine [Mass/Vol] 1.18 mg/dL Normal 0.60-1.20 [facility] Comment on above: Order Comment: No: D o not add to previous draw Performed By: #### 8 [id number] #### [facility] [address] [place] [address], [facility] eGFR- 53 ml/min/1.73sq m Abnormal >60 [facility] Comment on above: Order Comment: No: D o not add to previous draw Result Comment: Calc ulation may not be valid for patients over 70 years Performed By: #### 8 [id number] #### [facility] [address] [place] [address], [place] eGFR- non- 44 ml/min/1.73sq m Abnormal >60 [facility] Comment on above: Order Comment: No: D o not add to previous draw Result Comment: Calc ulation may not be valid for patients over 70 years Performed By: #### 8 [id number] #### [facility] [address] [place] [address], [place] Glucose [Mass/Vol] 90 mg/dL Normal 70-100 [facility] Comment on above: Order Comment: No: D o not add to previous draw Performed By: #### 8 [id number] #### [facility] [address] [place] [address], [place] Potassium [Moles/Vol] 4.3 mmol/L Normal 3.5-5.1 [facility] Comment on above: Order Comment: No: D o not add to previous draw Performed By: #### 8 [id number] #### [facility] [address] [place] [address], [facility] Protein [Mass/Vol] 4.8 g/dL Low 6.0-8.3 [facility] Comment on above: Order Comment: No: D o not add to previous draw Performed By: #### 8 [id number] #### [facility] [address] [place] [address], [place] Sodium [Moles/Vol] 140 mmol/L Normal 136-145 [facility] Comment on above: Order Comment: No: D o not add to previous draw Performed By: #### 8 [id number] #### [facility] [address] [place] [address], [place] Urea nitrogen [Mass/Vol] 37 mg/dL High 7-25 [facility] Comment on above: Order Comment: No: D o not add to previous draw Performed By: #### 8 [id number] #### [facility] [address] [place] [address], [facility] Endoscopy Reporton 2 Endoscopy Report MR#: [id number] [facility] Pt. Name: María Elena Tafoya Surgery Date: 04/03/2022 Room #: [facility] [id number] Date of : 1940 PROCEDURE NOTE ATTENDING: [...] A Elizabeth Olivo M.D. Date Dict: 04/03/2022/01:39 Venkatesh/Elizabeth Olivo M.D. Date Trans: 04/04/2022 04:28 Kate/erik [id number] cc: Bennie Albright M.D. [address], [place] [phone] Normal [facility] HEMOGLOBINon 04-04-2022 Hemoglobin (Bld) [Mass/Vol] 9.4 g/dL Low 12.0-15.0 [facility] Comment on above: Order Comment: No: D o not add to previous draw Performed By: #### 8 [id number] #### [facility] [address] Hemoglobin (Bld) [Mass/Vol] 9.5 g/dL Low 12.0-15.0 [facility] Comment on above: Order Comment: No: D o not add to previous draw Performed By: #### 5 0608 #### [facility] [address] [place] [address], [facility] Hemoglobin (Bld) [Mass/Vol] 8.9 g/dL Low 12.0-15.0 [facility] Comment on above: Order Comment: No: D o not add to previous draw Performed By: #### 8 [id number] #### [facility] [address] [place] [address], [facility] MAGNESIUM BLOODon 04-04-2022 Magnesium [Mass/Vol] 1.6 mg/dL Low 1.9-2.7 [facility] Comment on above: Order Comment: No: D o not add to previous draw Performed By: #### 8 [id number] #### [facility] [address] [place] [address], [facility] PHOSPHORUS BLOODon Phosphate [Mass/Vol] 3.8 mg/dL Normal 2.5-5.0 [facility] Comment on above: Order Comment: No: D o not add to previous draw Performed By: #### 8 [id number] #### [facility] [address] [place] [address], [place] POC GLUCOSE LABon 04-04-2022 Glucose [Mass/Vol] 123 mg/dL High 70-100 [facility] Comment on above: Performed By: #### 5 0608 #### [facility] [address] [place] [address], [place] Glucose [Mass/Vol] 152 mg/dL High 70-100 [facility] Comment on above: Performed By: #### 8 [id number] ####[facility] [place] [address], [place] Glucose [Mass/Vol] 111 mg/dL High 70-100 [facility] Comment on above: Performed By: #### 8 [id number] #### [facility] [address] [place] [address], [place] Glucose [Mass/Vol] 109 mg/dL High 70-100 [facility] Comment on above: Performed By: #### 8 [id number] #### [facility] [address] [place] [address], [place] Glucose [Mass/Vol] 94 mg/dL Normal 70-100 [facility] Comment on above: Performed By: #### 8 [id number] ####[facility] [place] [address], [place] PROTHROMBIN TIMEon INR Coag (PPP) [Relative time] 1.18 {INR} High 0.91-1.16 [facility] Comment on above: Order Comment: No: [...] 1995;108:231S-246S. Performed By: #### 8 [id number] #### [address] PT Coag (PPP) [Time] 14.9 s High 12.3-14.8 [facility] Comment on above: Order Comment: No: D o not add to previous draw Result Comment: ALL RESULTS MUST BE INTERPRETED WITH RESPECT TO BLOOD DRAWING ARTIFACT OR DILUTION ERROR OF ANTICOAGULANT AT THE TIME OF SAMPLING. Performed By: #### 8 [id number] #### [address] UFH HEPARIN ASSAYon 04-04-20 UNFRACTIONATED HEPARIN 0.11 IU/mL Critically low 0.30-0.70 [facility] Comment on above: Result Comment: RESU LTS CHECKED AND CALLED. ACCURATELY READ BACK BY CHAZ LAWLER RN @ 2109 Rivaroxaban and Apixaban will interfere with the anti Xa assay used to monitor UFH and LMWH. Performed By: #### 8 [id number] #### [address] US GALLBLADDERon 04-04-2022 US GALLBLADDER [facility] Department of Radiology [address] [place] [id number] ======== Patient Name: MARÍA ELENA TAFOYA : 1940 Sex: F Age: Race: NA Pt. Location: [id number] Patient Status: I Ordered Date: 04/03/2022 8:05:00 [...] calculi. Electronically signed: Brooke Verduzco. Transcribed by: [email or web address], User Resident: Electronically Signed by: BROOKE VERDUZCO @ 04/04/2022 07:46 AM Normal [facility] Comment on above: Order Comment: Stone s VENOUS BLOOD GASon BASE EXCESS 2 mmol/L Normal [facility] Comment on above: Performed By: #### 8 [id number] #### [facility] [address] [place] [address], [facility] HCO3 (Bld) [Moles/Vol] 27 mmol/L Normal [facility] Comment on above: Performed By: #### 8 [id number] #### [facility] [address] [place] [address], [facility] Oxygen (Bld) [Partial pressure] 72 mm[Hg] Critically high 35-45 [facility] Comment on above: Performed By: #### 8 [id number] #### [facility] [address] [place] [address], [facility] Oxygen saturation in Blood 93.8 % High 65.0-75.0 [facility] Comment on above: Performed By: #### 8 [id number] #### [facility] [address] [place] [address], [facility] PCO2 42 mmHg Normal [facility] Comment on above: Performed By: #### 8 [id number] #### [facility] [address] [place] [address], [facility] pH (Bld) 7.41 [pH] Normal 7.31-7.41 [facility] Comment on above: Performed By: #### 8 [id number] #### [facility] [address] [place] [address], [facility] APTTon 04-03-2022 aPTT Coag (Bld) [Time] 32.6 s Normal 25.0-35.0 [facility] Comment on above: Order Comment: [...] PURPOSE. Performed By: #### 8 [id number] #### [facility] [address] [place] [address], [facility] ARTERIAL BLOOD GAS WITH ICAo n 04-03-2022 BASE EXCESS 2 mmol/L Normal -2-3 [facility] Comment on above: Performed By: #### 8 [id number] #### [facility] [address] [place] [address], [facility] [employer] [place] Normal [facility] Comment on above: Performed By: #### 8 [id number] #### [facility] [address] [place] [address], [facility] HCO3 (Bld) [Moles/Vol] 25 mmol/L Normal 21-28 [facility] Comment on above: Performed By: #### 8 [id number] #### [facility] [address] [place] [address], [facility] IONIZED CALCIUM 1.24 mmol/L Normal 1.13-1.32 [facility] Comment on above: Performed By: #### 8 [id number] #### [facility] [address] [place] [address], [facility] LPM 4.0 LPM Normal [facility] Comment on above: Performed By: #### 8 [id number] #### [facility] [address] [place] [address], [facility] Oxygen (Bld) [Partial pressure] 76 mm[Hg] Low 83-108 [facility] Comment on above: Performed By: #### 8 [id number] #### [facility] [address] [place] [address], [facility] Oxygen saturation in Blood 94.0 % Normal 94.0-97.0 [facility] Comment on above: Performed By: #### 8 [id number] #### [facility] [address] [place] [address], [facility] PCO2 34 mmHg Low 35-45 [facility] Comment on above: Performed By: #### 8 [id number] #### [facility] [address] [place] [address], [facility] pH (Bld) 7.48 [pH] High 7.35-7.45 [facility] Comment on above: Performed By: #### 8 [id number] #### [facility] [address] [place] [address], [facility] BASIC METABOLIC PANELon 05-1 Calcium [Mass/Vol] 8.5 mg/dL Low 8.6-10.3 [facility] Comment on above: Order Comment: No: D o not add to previous draw Performed By: #### 8 [id number] #### [facility] [address] [place] [address], [facility] Chloride [Moles/Vol] 108 mmol/L High 98-107 [facility] Comment on above: Order Comment: No: D o not add to previous draw Performed By: #### 8 [id number] #### [facility] [address] [place] [address], [facility] CO2 [Moles/Vol] 25 mmol/L Normal 21-31 [facility] Comment on above: Order Comment: No: D o not add to previous draw Performed By: #### 8 [id number] #### [facility] [address] [place] [id number], [facility] Creatinine [Mass/Vol] 0.96 mg/dL Normal 0.60-1.20 [facility] Comment on above: Order Comment: No: D o not add to previous draw Performed By: #### 8 [id number] #### [facility] [address] [place] [address], [facility] eGFR- non- 56 ml/min/1.73sq m Abnormal >60 [facility] Comment on above: Order Comment: No: D o not add to previous draw Result Comment: Calc ulation may not be valid for patients over 70 years Performed By: #### 8 [id number] #### [facility] [address] [place] [address], [place] GFR/1.73 sq M.predicted among blacks MDRD (S/P/Bld) [Vol rate/Area] mL/min/{1.73_m2} Normal >60 [facility] Comment on above: Order Comment: No: D o not add to previous draw Result Comment: Calc ulation may not be valid for patients over 70 years Performed By: #### 8 [id number] #### [facility] [address] [place] [address], [place] Glucose [Mass/Vol] 122 mg/dL High 70-100 [facility] Comment on above: Order Comment: No: D o not add to previous draw Performed By: #### 8 [id number] #### [facility] [address] [place] [address], [place] Potassium [Moles/Vol] 5.5 mmol/L High 3.5-5.1 [facility] Comment on above: Order Comment: No: D o not add to previous draw Performed By: #### 8 [id number] #### [facility] [address] [place] [address], [place] Sodium [Moles/Vol] 137 mmol/L Normal 136-145 [facility] Comment on above: Order Comment: No: D o not add to previous draw Performed By: #### 8 [id number] #### [facility] [address] [place] [address], [place] Urea nitrogen [Mass/Vol] 30 mg/dL High 7-25 [facility] Comment on above: Order Comment: No: D o not add to previous draw Performed By: #### 8 [id number] #### [facility] [address] [place] [address], [place] BLOOD STOOL GUAIACon 022 BLD STOOL GUAIAC Positive Abnormal NEGATIVE [facility] Comment on above: Order Comment: No: D o not add to previous draw Performed By: #### 2 2706 #### [facility] [address] [facility] [place] [address], [facility] CALCIUM IONIZED CBGLon 04-03 IONIZED CALCIUM 1.18 mmol/L Normal 1.12-1.30 [facility] Comment on above: Performed By: #### 8 [id number] #### [facility] [address] [facility] [address] CBC COMPLETE BLOOD COUNTon 0 04-03-2022 Erythrocyte distribution width (RBC) [Ratio] 17.9 % High 11.5-15.0 [facility] Comment on above: Order Comment: No: D o not add to previous draw Performed By: #### 5 0608 #### [facility] [address] [facility]. [address] Hematocrit (Bld) [Volume fraction] 34.4 % Low 36.0-45.0 [facility] Comment on above: Order Comment: No: D o not add to previous draw Performed By: #### 5 0608 #### [facility] [address] [facility] [place] [address], [facility] Hemoglobin (Bld) [Mass/Vol] 10.6 g/dL Low 12.0-15.0 [facility] Comment on above: Order Comment: No: D o not add to previous draw Performed By: #### 5 0608 #### [facility] [address] [facility] [place] [address], [facility] MCH (RBC) [Entitic mass] 30.3 pg Normal 27.0-33.0 [facility] Comment on above: Order Comment: No: D o not add to previous draw Performed By: #### 5 0608 #### [facility] [address] [place] [address], [facility] MCHC (RBC) [Mass/Vol] 30.8 g/dL Low 32.0-35.0 [facility] Comment on above: Order Comment: No: D o not add to previous draw Performed By: #### 5 0608 #### [facility] [address] [place] [address], [facility] MCV (RBC) [Entitic vol] 98.3 fL High 82.0-98.0 [facility] Comment on above: Order Comment: No: D o not add to previous draw Performed By: #### 5 0608 #### [facility] [address] [place] [id number], [facility] Nucleated RBC/100 WBC (Bld) [Ratio] 0 % Normal 0-0 [facility] Comment on above: Order Comment: No: D o not add to previous draw Performed By: #### 5 0608 #### [facility] [address] [place] [address], [place] PLAT CNT 396 10*3/uL Normal 150-400 [facility] Comment on above: Order Comment: No: D o not add to previous draw Performed By: #### 5 0608 #### [facility] [address] [place] [address], [facility] RBC (Bld) [#/Vol] 3.50 10*6/uL Low 3.80-5.00 [facility] Comment on above: Order Comment: No: D o not add to previous draw Performed By: #### 5 0608 #### [facility] [address] [place] [address], [place] WBC (Bld) [#/Vol] 34.46 10*3/uL High 4.00-10.60 [facility] Comment on above: Order Comment: No: D o not add to previous draw Performed By: #### 5 0608 #### [facility] [address] [place] [address], [facility] CT BRAIN WO CONTRASTon 04-03 CT BRAIN WO CONTRAST [facility] Department of Radiology [address] [place] [phone] ======== Patient Name: MARÍA ELENA TAFOYA : 1940 Sex: F Age: Race: NA Pt. Location: [place] [address] Patient Status: I Ordered Date: 04/03/2022 8:30:00 [...] right side weakness QUESTION FOR THE RADIOLOGIST: Bleed, altereed mental status PROTOCOL: Axial CT images of [...] for ischemia, consider MRLydia Electronically signed: Darrel Gordon. Transcribed by: [email or web address], User Resident: Electronically Signed by: DARREL Yesy BERNARDO @ 04/03/2022 09:21 PM Normal [facility] Comment on above: Order Comment: Bleed , altereed mental status ERCPon 04-03-2022 ERCP [facility] Department of Radiology [address] [place] [phone] ======== Patient Name: MARÍA ELENA TAFOYA : 1940 Sex: F Age: Race: NA Pt. Location: [id number] Patient Status: I Ordered Date: 04/03/2022 8:50:00 [...] details. Electronically signed: Brooke Verduzco. Transcribed by: [email or web address], User Resident: Electronically Signed by: BROOKE VERDUZCO @ 04/03/2022 12:52 PM Normal [facility] Comment on above: Order Comment: Check Stent Position HEMATOCRITon 04-03-2022 Hematocrit (Bld) [Volume fraction] 27.5 % Low 36.0-45.0 [facility] Comment on above: Order Comment: No: D o not add to previous draw Performed By: #### 8 [id number] #### [facility] [address] Hematocrit (Bld) [Volume fraction] 31.1 % Low 36.0-45.0 [facility] Comment on above: Order Comment: No: D o not add to previous draw Performed By: #### 8 [id number] #### [facility] [address] [place] [address], [facility] Hematocrit (Bld) [Volume fraction] 32.2 % Low 36.0-45.0 [facility] Comment on above: Order Comment: No: D o not add to previous draw Performed By: #### 8 [id number] #### [facility] [address] [place] [id number], [facility] HEMOGLOBINon 04-03-2022 Hemoglobin (Bld) [Mass/Vol] 8.8 g/dL Low 12.0-15.0 [facility] Comment on above: Order Comment: No: D o not add to previous draw Performed By: #### 8 [id number] #### [facility] [address] [place] [address], [facility] Hemoglobin (Bld) [Mass/Vol] 9.8 g/dL Low 12.0-15.0 [facility] Comment on above: Order Comment: No: D o not add to previous draw Performed By: #### 8 [id number] #### [facility] [address] [place] [address], [facility] Hemoglobin (Bld) [Mass/Vol] 9.9 g/dL Low 12.0-15.0 [facility] Comment on above: Order Comment: No: D o not add to previous draw Performed By: #### 8 [id number] #### [facility] [address] [place] [id number], [facility] LIPASE BLOODon 04-03-2022 LIPASE 149 Units/L High 11-82 [facility] Comment on above: Order Comment: No: D o not add to previous draw Performed By: #### 8 [id number] #### [facility] [address] [place] [address], [facility] LIVER BATTERYon 04-03-2022 Albumin [Mass/Vol] 2.8 g/dL Low 3.5-5.7 [facility] Comment on above: Order Comment: No: D o not add to previous draw Performed By: #### 8 [id number] #### [facility] [address] [place] [address], [facility] ALKALINE PHOSPH 137 IU/L High 34-104 [facility] Comment on above: Order Comment: No: D o not add to previous draw Performed By: #### 8 [id number] #### [facility] [address] [place] [address], [place] ALT [Catalytic activity/Vol] 18 U/L Normal 7-52 [facility] Comment on above: Order Comment: No: D o not add to previous draw Performed By: #### 8 [id number] #### [facility] [address] [place] [address], [facility] AST [Catalytic activity/Vol] 8 U/L Low 13-39 [facility] Comment on above: Order Comment: No: D o not add to previous draw Performed By: #### 8 [id number] #### [facility] [address] [place] [address], [place] Bilirubin [Mass/Vol] 1.5 mg/dL High 0.3-1.0 [facility] Comment on above: Order Comment: No: D o not add to previous draw Performed By: #### 8 [id number] #### [facility] [address] [place] [address], [place] Bilirubin.direct [Mass/Vol] 0.6 mg/dL High 0.0-0.2 [facility] Comment on above: Order Comment: No: D o not add to previous draw Performed By: #### 8 [id number] #### [facility] [address] [place] [address], [place] Protein [Mass/Vol] 5.8 g/dL Low 6.0-8.3 [facility] Comment on above: Order Comment: No: D o not add to previous draw Performed By: #### 8 [id number] #### [facility] [address] [place] [address], [place] MAGNESIUM BLOODon 04-03-2022 Magnesium [Mass/Vol] 2.0 mg/dL Normal 1.9-2.7 [facility] Comment on above: Order Comment: No: D o not add to previous draw Performed By: #### 8 [id number] #### [facility] [address] [place] [address], [place] PHOSPHORUS BLOODon Phosphate [Mass/Vol] 4.2 mg/dL Normal 2.5-5.0 [facility] Comment on above: Order Comment: No: D o not add to previous draw Performed By: #### 8 [id number] #### [facility] [address] [place] [address], [place] POC GLUCOSE LABon 04-03-2022 Glucose [Mass/Vol] 121 mg/dL High 70-100 [facility] Comment on above: Performed By: #### 8 [id number] #### [facility] [address] [place] [address], [place] Glucose [Mass/Vol] 147 mg/dL High 70-100 [facility] Comment on above: Performed By: #### 8 5499 #### [facility] [address] [place] [address], [place] Glucose [Mass/Vol] 133 mg/dL High 70-100 [facility] Comment on above: Performed By: #### 3 0313 #### [facility] [address] [place] [address], [facility] PROTHROMBIN TIMEon INR Coag (PPP) [Relative time] 1.23 {INR} High 0.91-1.16 [facility] Comment on above: Order Comment: Yes: [...] 1995;108:231S-246S. Performed By: #### 8 [id number] #### [facility] [address] [place] [address], [facility] PT Coag (PPP) [Time] 15.5 s High 12.3-14.8 [facility] Comment on above: Order Comment: Yes: Add to Previous draw if ablePt is in [place] Result Comment: ALL RESULTS MUST BE INTERPRETED WITH RESPECT TO BLOOD DRAWING ARTIFACT OR DILUTION ERROR OF ANTICOAGULANT AT THE TIME OF SAMPLING. Performed By: #### 8 [id number] #### [facility] [address] [place] [address], [facility] RBC'S 1 UNITon 04-03-2022 CROSSMATCH INTERP 1 COMP Normal [facility] Comment on above: Performed By: #### 8 [id number] #### [facility] [address] [facility] [place] [address], [facility] PRODUCT CODE 1 E0336 Normal [facility] Comment on above: Performed By: #### 8 [id number] #### [facility] [address] [facility] [place] [address], [facility] PRODUCT STATUS 1 RE Normal [facility] Comment on above: Result Comment: Resu lt changed by IF on 04/07/2022 06:43. The previous value was XM. Performed By: #### 8 [id number] #### [facility] [address] [facility] [place] [place] [address], [facility] UNIT ABO 1 A Normal [facility] Comment on above: Performed By: #### 8 [id number] #### [facility] [address] [facility] [place] [address], [facility] UNIT ID 1 [id number] Normal [facility] Comment on above: Performed By: #### 8 [id number] #### [facility] [address] [place] [address], [facility] UNIT RH 1 Negative Normal [facility] Comment on above: Performed By: #### 8 [id number] #### [facility] [address] [place] [address], [facility] RBC'S 2 UNITSon 04-03-2022 CROSSMATCH INTERP 1 COMP Normal [facility] Comment on above: Performed By: #### 8 [id number] #### [facility] [address] [place] [address], [facility] CROSSMATCH INTERP 2 COMP Normal [facility] Comment on above: Performed By: #### 8 [id number] #### [facility] [address] [place] [address], [facility] PRODUCT CODE 1 E0686 Normal [facility] Comment on above: Performed By: #### 8 [id number] #### [facility] [address] [place] [address], [facility] PRODUCT CODE 2 E0336 Normal [facility] Comment on above: Performed By: #### 8 [id number] #### [facility] [address] [place] [address], [facility] PRODUCT STATUS 1 PT Normal [facility] Comment on above: Result Comment: Resu lt changed by IF on 04/03/2022 10:21. The previous value was XM. Result changed by IF on 04/04/2022 00:30. The previous value was IS. Performed By: #### [id number] #### [facility] [address] [place] [address], [facility] PRODUCT STATUS 2 PT Normal The [facility] Comment on above: Result Comment: Resu lt changed by IF on 04/03/2022 10:21. The previous value was XM. Result changed by IF on 04/03/2022 11:27. The previous value was IS. Result changed by IF on 04/03/2022 12:23. The previous value was XM. Result changed by IF on 04/04/2022 00:30. The previous value was IS. Performed By: #### [id number] #### [facility] [address] [place] [address], [facility] UNIT ABO 1 A Normal The [facility] Comment on above: Performed By: #### 8 [id number] #### [facility] [address] [place] [address], [place] UNIT ABO 2 A Normal The [facility] Comment on above: Performed By: #### 8 [id number] #### [facility] [address] [place] [address], [facility] UNIT ID 1 [id number] Normal [address] [facility] Comment on above: Performed By: #### 8 [id number] #### [facility] [address] [place] [address], [facility] UNIT ID 2 [id number] Normal The [facility] Comment on above: Performed By: #### 8 [id number] #### [facility] [address] [place] [address], [facility] UNIT RH 1 Negative Normal The [facility] Comment on above: Performed By: #### 8 [id number] #### [facility] [address] [place] [address], [place] UNIT RH 2 Negative Normal The [facility] Comment on above: Performed By: #### 8 [id number] #### [facility] [address] [place] [address], [facility] TYPE AND SCREENon 04-03-2022 ABO INTERPRETATION AB Normal [facility] Comment on above: Performed By: #### 8 [id number] #### [facility] [address] [place] [address], [place] RH INTERPRETATION Negative Normal The [facility] Comment on above: Performed By: #### 8 [id number] #### [facility] [address] [place] [address], [place] UFH HEPARIN ASSAYon 04-03-20 22 UNFRACTIONATED HEPARIN 0.28 IU/mL Low 0.30-0.70 The [facility] Comment on above: Result Comment: Kristy roxaban and Apixaban will interfere with the anti Xa assay used to monitor UFH and LMWH. Performed By: #### 8 [id number] #### [facility] [address] [place] [address], [facility] VENOUS BLOOD GAS W/COOXon BASE EXCESS -3 mmol/L Normal The [facility] Comment on above: Order Comment: RESUL TS CHECKED AND CALLED. ACCURATELY READ BACK BY AYANNA PHIPPS Performed By: #### 8 [id number] #### [facility] [address] [facility] [place] [address], [facility] COHB 2 % Normal The [facility] Comment on above: Order Comment: RESUL TS CHECKED AND CALLED. ACCURATELY READ BACK BY AYANNA PHIPPS Performed By: #### 8 [id number] #### [facility] [address] [place] [address], [facility] HCO3 (Bld) [Moles/Vol] 25 mmol/L Normal The [facility] Comment on above: Order Comment: RESUL TS CHECKED AND CALLED. ACCURATELY READ BACK BY AYANNA PHIPPS Performed By: #### 8 [id number] #### [facility] [address] [place] [address], [facility] METHB 0.3 % Normal The [facility] Comment on above: Order Comment: RESUL TS CHECKED AND CALLED. ACCURATELY READ BACK BY AYANNA PHIPPS Performed By: #### 8 [id number] #### [facility] [address] [place] [address], [facility] Oxygen (Bld) [Partial pressure] 31 mm[Hg] Low 35-45 The [facility] Comment on above: Order Comment: RESUL TS CHECKED AND CALLED. ACCURATELY READ BACK BY AYANNA PHIPPS Performed By: #### 8 [id number] #### [facility] [address] [place] [address], [facility] Oxygen saturation in Blood 38.0 % Low 65.0-75.0 [facility] Comment on above: Order Comment: RESUL TS CHECKED AND CALLED. ACCURATELY READ BACK BY AYANNA PHIPPS Performed By: #### 8 [id number] #### [facility] [address] [facility] [place] [address], [facility] PCO2 53 mmHg Normal [facility] Comment on above: Order Comment: RESUL TS CHECKED AND CALLED. ACCURATELY READ BACK BY AYANNA PHIPPS Performed By: #### 8 [id number] #### [facility] [address] [facility] [address] pH (Bld) 7.28 [pH] Low 7.31-7.41 The [facility] Comment on above: Order Comment: RESUL TS CHECKED AND CALLED. ACCURATELY READ BACK BY AYANNA PHIPPS Performed By: #### 8 [id number] #### [facility] [address] [facility]. [address] THB 9.2 g/dL Normal The [facility] Comment on above: Order Comment: RESUL TS CHECKED AND CALLED. ACCURATELY READ BACK BY AYANNA PHIPPS Performed By: #### 8 [id number] #### [facility] [address] BASIC METABOLIC PANELon 05- Calcium [Mass/Vol] 8.5 mg/dL Low 8.6-10.3 The [facility] Comment on above: Order Comment: The A ptima SARS-CoV-2 assay is a nucleic acid amplification test intended for the qualitative detection of RNA from SARS-CoV-2 isolated and purified from nasopharyngeal (TRAIN CALLER),oropharyngeal (OP), nasal swab, sputum, and bronchoalveolar lavage (BAL) specimens from patients with signs and symptoms of infection who are suspected of COVID-19. Results are for the identification of SARS-CoV-2 RNA. The SARS-CoV-2 RNA is generally detectable during the acute phase of infection. The Aptima SARS-CoV-2 Assay on the Coolstuff and Coolstuff Fusion system is intended for use by laboratory personnel specifically instructed and trained in the operation of the [employer]man [employer] Fusion system. The Aptima SARS-CoV-2 assay is [...] information. Performed By: #### 3 [id number] #### [facility] [address] [place] [address], [facility] Chloride [Moles/Vol] 104 mmol/L Normal 98-107 The [facility] Comment on above: Order Comment: The A ptima SARS-CoV-2 assay is a nucleic acid amplification test intended for the qualitative detection of RNA from SARS-CoV-2 isolated and purified from nasopharyngeal (TRAIN CALLER),oropharyngeal (OP), nasal swab, sputum, and bronchoalveolar lavage (BAL) specimens from patients with signs and symptoms of infection who are suspected of COVID-19. Results are for the identification of SARS-CoV-2 RNA. The SARS-CoV-2 RNA is generally detectable during the acute phase of infection. The Aptima SARS-CoV-2 Assay on the [employer] Fusion system is intended for use by laboratory personnel specifically instructed and trained in the operation of the [employer] Fusion system. The Aptima SARS-CoV-2 assay is [...] and epidemiological information. Performed By: #### 3 [id number] #### [facility] [address] [place] [address], [place] CO2 [Moles/Vol] 23 mmol/L Normal 21-[address] [facility] Comment on above: Order Comment: The A ptima SARS-CoV-2 assay is a nucleic acid amplification test intended for the qualitative detection of RNA from SARS-CoV-2 isolated and purified from nasopharyngeal (TRAIN CALLER),oropharyngeal (OP), nasal swab, sputum, and bronchoalveolar lavage (BAL) specimens from patients with signs and symptoms of infection who are suspected of COVID-19. Results are for the identification of SARS-CoV-2 RNA. The SARS-CoV-2 RNA is generally detectable during the acute phase of infection. The Aptima SARS-CoV-2 Assay on the [employer] Fusion system is intended for use by laboratory personnel specifically instructed and trained in the operation of the [employer] Fusion system. The Aptima SARS-CoV-2 assay is [...] information. Performed By: #### 3 [id number] #### [address] Creatinine [Mass/Vol] 1.00 mg/dL Normal 0.60-1.20 The [facility] Comment on above: Order Comment: The A ptima SARS-CoV-2 assay is a nucleic acid amplification test intended for the qualitative detection of RNA from SARS-CoV-2 isolated and purified from nasopharyngeal (TRAIN CALLER),oropharyngeal (OP), nasal swab, sputum, and bronchoalveolar lavage (BAL) specimens from patients with signs and symptoms of infection who are suspected of COVID-19. Results are for the identification of SARS-CoV-2 RNA. The SARS-CoV-2 RNA is generally detectable during the acute phase of infection. The Aptima SARS-CoV-2 Assay on the [employer] Fusion system is intended for use by laboratory personnel specifically instructed and trained in the operation of the [employer] Fusion system. The Aptima SARS-CoV-2 assay is [...] information. Performed By: #### 3 [id number] #### [facility] [address] [facility]. [place], [place] [id number] [place] [address] eGFR- non- 53 ml/min/1.73sq m Abnormal >60 [facility] Comment on above: Order Comment: The A ptima SARS-CoV-2 assay is a nucleic acid amplification test intended for the qualitative detection of RNA from SARS-CoV-2 isolated and purified from nasopharyngeal (TRAIN CALLER),oropharyngeal (OP), nasal swab, sputum, and bronchoalveolar lavage (BAL) specimens from patients with signs and symptoms of infection who are suspected of COVID-19. Results are for the identification of SARS-CoV-2 RNA. The SARS-CoV-2 RNA is generally detectable during the acute phase of infection. The Aptima SARS-CoV-2 Assay on the [employer] Fusion system is intended for use by laboratory personnel specifically instructed and trained in the operation of the [employer] Fusion system. The Aptima SARS-CoV-2 assay is [...] over 70 years Performed By: #### 3 [id number] #### [facility] [address] GFR/1.73 sq M.predicted among blacks MDRD (S/P/Bld) [Vol rate/Area] mL/min/{1.73_m2} Normal >60 The [facility] Comment on above: Order Comment: The A ptima SARS-CoV-2 assay is a nucleic acid amplification test intended for the qualitative detection of RNA from SARS-CoV-2 isolated and purified from nasopharyngeal (TRAIN CALLER),oropharyngeal (OP), nasal swab, sputum, and bronchoalveolar lavage (BAL) specimens from patients with signs and symptoms of infection who are suspected of COVID-19. Results are for the identification of SARS-CoV-2 RNA. The SARS-CoV-2 RNA is generally detectable during the acute phase of infection. The Aptima SARS-CoV-2 Assay on the [employer] Fusion system is intended for use by laboratory personnel specifically instructed and trained in the operation of the [employer] Fusion system. The Aptima SARS-CoV-2 assay is [...] years Performed By: #### 3 [id number] #### [facility] [address] [facility] Glucose [Mass/Vol] 87 mg/dL Normal 70-100 [facility] Comment on above: Order Comment: The A ptima SARS-CoV-2 assay is a nucleic acid amplification test intended for the qualitative detection of RNA from SARS-CoV-2 isolated and purified from nasopharyngeal (TRAIN CALLER),oropharyngeal (OP), nasal swab, sputum, and bronchoalveolar lavage (BAL) specimens from patients with signs and symptoms of infection who are suspected of COVID-19. Results are for the identification of SARS-CoV-2 RNA. The SARS-CoV-2 RNA is generally detectable during the acute phase of infection. The Aptima SARS-CoV-2 Assay on the [employer] Fusion system is intended for use by laboratory personnel specifically instructed and trained in the operation of the [employer] Fusion system. The Aptima SARS-CoV-2 assay is [...] information. Performed By: #### 3 [id number] #### [facility] [address] [facility] [place] [place] [address], [facility] Potassium [Moles/Vol] 4.1 mmol/L Normal 3.5-5.1 [facility] Comment on above: Order Comment: The A ptima SARS-CoV-2 assay is a nucleic acid amplification test intended for the qualitative detection of RNA from SARS-CoV-2 isolated and purified from nasopharyngeal (TRAIN CALLER),oropharyngeal (OP), nasal swab, sputum, and bronchoalveolar lavage (BAL) specimens from patients with signs and symptoms of infection who are suspected of COVID-19. Results are for the identification of SARS-CoV-2 RNA. The SARS-CoV-2 RNA is generally detectable during the acute phase of infection. The Aptima SARS-CoV-2 Assay on the [employer] Fusion system is intended for use by laboratory personnel specifically instructed and trained in the operation of the [employer] Fusion system. The Aptima SARS-CoV-2 assay is [...] and epidemiological information. Performed By: #### 3 1127 #### [facility] [address] [place] [address], [facility] Sodium [Moles/Vol] 135 mmol/L Low 136-145 [facility] Comment on above: Order Comment: The A ptima SARS-CoV-2 assay is a nucleic acid amplification test intended for the qualitative detection of RNA from SARS-CoV-2 isolated and purified from nasopharyngeal (TRAIN CALLER),oropharyngeal (OP), nasal swab, sputum, and bronchoalveolar lavage (BAL) specimens from patients with signs and symptoms of infection who are suspected of COVID-19. Results are for the identification of SARS-CoV-2 RNA. The SARS-CoV-2 RNA is generally detectable during the acute phase of infection. The Aptima SARS-CoV-2 Assay on the [employer] Fusion system is intended for use by laboratory personnel specifically instructed and trained in the operation of the [employer] Fusion system. The Aptima SARS-CoV-2 assay is [...] information. Performed By: #### 3 [id number] #### [address] Urea nitrogen [Mass/Vol] 17 mg/dL Normal 7-25 The [facility] Comment on above: Order Comment: The A ptima SARS-CoV-2 assay is a nucleic acid amplification test intended for the qualitative detection of RNA from SARS-CoV-2 isolated and purified from nasopharyngeal (TRAIN CALLER),oropharyngeal (OP), nasal swab, sputum, and bronchoalveolar lavage (BAL) specimens from patients with signs and symptoms of infection who are suspected of COVID-19. Results are for the identification of SARS-CoV-2 RNA. The SARS-CoV-2 RNA is generally detectable during the acute phase of infection. The Aptima SARS-CoV-2 Assay on the [employer] Fusion system is intended for use by laboratory personnel specifically instructed and trained in the operation of the [employer] Fusion system. The Aptima SARS-CoV-2 assay is [...] information. Performed By: #### 3 [id number] #### [facility] [address] [place] [address], [facility] CALCIUM IONIZED CBGLon 04-02 IONIZED CALCIUM 1.15 mmol/L Normal 1.12-1.30 [facility] Comment on above: Performed By: #### 8 [id number] #### [facility] [address] [place] [address], [facility] CBC W/DIFFon 04-02-2022 ABS IMM GRANS 0.5 10*3/uL High 0.0-0.2 The [facility] Comment on above: Order Comment: No: D o not add to previous draw Performed By: #### 8 [id number] #### [facility] [address] [facility] [place] [address], [facility] ABS NEUTROPHILS 27.8 10*3/uL High 1.6-7.6 The [facility] Comment on above: Order Comment: No: D o not add to previous draw Performed By: #### 8 [id number] #### [facility] [address] [place] [address], [facility] Basophils (Bld) [#/Vol] 0.2 10*3/uL Normal 0.0-0.2 The [facility] Comment on above: Order Comment: No: D o not add to previous draw Performed By: #### 8 [id number] #### [facility] [address] [place] [address], [facility] Basophils/100 WBC (Bld) 0.7 % Normal 0.0-1.0 The [facility] Comment on above: Order Comment: No: D o not add to previous draw Performed By: #### 8 [id number] #### [facility] [address] [place] [address], [facility] Eosinophils (Bld) [#/Vol] 0.0 10*3/uL Normal 0.0-0.5 [facility] Comment on above: Order Comment: No: D o not add to previous draw Performed By: #### 8 [id number] #### [facility] [address] [place] [id number], [facility] Eosinophils/100 WBC (Bld) 0.1 % Normal 0.0-6.0 [facility] Comment on above: Order Comment: No: D o not add to previous draw Performed By: #### 8 [id number] #### [facility] [address] [facility] [place] [address], [facility] Erythrocyte distribution width (RBC) [Ratio] 17.5 % High 11.5-15.0 The [facility] Comment on above: Order Comment: No: D o not add to previous draw Performed By: #### 8 [id number] #### [facility] [address] [place] [address], [facility] Hematocrit (Bld) [Volume fraction] 39.1 % Normal 36.0-45.0 The [facility] Comment on above: Order Comment: No: D o not add to previous draw Performed By: #### 8 [id number] #### [facility] [address] [facility] [place] [address], [facility] Hemoglobin (Bld) [Mass/Vol] 12.1 g/dL Normal 12.0-15.0 The [facility] Comment on above: Order Comment: No: D o not add to previous draw Performed By: #### 8 [id number] #### [facility] [address] [facility] [place] [id number], [facility] IMMATURE GRANS 1.8 % High 0.0-1.0 The [facility] Comment on above: Order Comment: No: D o not add to previous draw Performed By: #### 8 [id number] #### [facility] [address] [place] [address], [facility] Lymphocytes (Bld) [#/Vol] 1.1 10*3/uL Low 1.2-4.0 The [facility] Comment on above: Order Comment: No: D o not add to previous draw Performed By: #### 8 [id number] #### [facility] [address] [facility] [place] [address], [facility] Lymphocytes/100 WBC (Bld) 3.5 % Low 20.0-45.0 The [facility] Comment on above: Order Comment: No: D o not add to previous draw Performed By: #### 8 [id number] #### [facility] [address] [place] [address], [facility] MCH (RBC) [Entitic mass] 30.1 pg Normal 27.0-33.0 The [facility] Comment on above: Order Comment: No: D o not add to previous draw Performed By: #### 8 [id number] #### [facility] [address] [place] [address], [facility] MCHC (RBC) [Mass/Vol] 30.9 g/dL Low 32.0-35.0 [facility] Comment on above: Order Comment: No: D o not add to previous draw Performed By: #### 8 [id number] #### [facility] [address] [place] [address], [facility] MCV (RBC) [Entitic vol] 97.3 fL Normal 82.0-98.0 [facility] Comment on above: Order Comment: No: D o not add to previous draw Performed By: #### 8 [id number] #### [facility] [address] [place] [address], [facility] Monocytes (Bld) [#/Vol] 0.6 10*3/uL Normal 0.1-1.0 The [facility] Comment on above: Order Comment: No: D o not add to previous draw Performed By: #### 8 [id number] #### [facility] [address] [place] [address], [place] MONOS 1.8 % Low 5.0-12.0 [facility] Comment on above: Order Comment: No: D o not add to previous draw Performed By: #### 8 [id number] #### [facility] [address] [place] [address], [place] Neutrophils/100 WBC (Bld) 92.1 % High 40.0-72.0 [facility] Comment on above: Order Comment: No: D o not add to previous draw Performed By: #### 8 [id number] #### [facility] [address] [place] [address], [facility] Nucleated RBC/100 WBC (Bld) [Ratio] 0 % Normal 0-0 The [facility] Comment on above: Order Comment: No: D o not add to previous draw Performed By: #### 8 [id number] #### [facility] [address] [place] [address], [place] PLAT CNT 370 10*3/uL Normal 150-400 [facility] Comment on above: Order Comment: No: D o not add to previous draw Performed By: #### 8 [id number] #### [facility] [address] [place] [address], [place] RBC (Bld) [#/Vol] 4.02 10*6/uL Normal 3.80-5.00 The [facility] Comment on above: Order Comment: No: D o not add to previous draw Performed By: #### 8 [id number] #### [facility] [address] [place] [address], [place] WBC (Bld) [#/Vol] 30.18 10*3/uL High 4.00-10.60 The [facility] Comment on above: Order Comment: No: D o not add to previous draw Performed By: #### 8 [id number] #### [facility] [address] [place] [address], [place] ERCPon 05-16-2022 ERCP [facility] Department of Radiology [address] [place] [address] ======== Patient Name: MARÍA ELENA TAFOYA : 1940 Sex: F Age: Race: NA Pt. Location: [id number] Patient Status: I Ordered Date: 04/02/2022 3:40:00 [...] details. Electronically signed: Brooke Verduzco. Transcribed by: [email or web address], User Resident: Electronically Signed by: BROOKE VERDUZCO @ 04/03/2022 09:48 AM Normal The [facility] Comment on above: Order Comment: Check Stent Position Endoscopy Reporton Endoscopy Report MR#: [id number] [facility] Pt. Name: María Elena Tafoya Surgery Date: 04/02/2022 Room #: 5AB [id number] Date of : 1940 PROCEDURE NOTE ATTENDING: Elizabeth Olivo M.D. LEAD ANDROID DEVELOPER: Felipe Gallo MD. PROCEDURE: ERCP with biliary [...] Gallo MD Date Trans: 04/02/2022 07:10 P/mmo [id number] cc: Bennie Albright M.D. [address] [facility] [address] Normal The [facility] LIVER BATTERYon 04-02-2022 Albumin [Mass/Vol] 3.0 g/dL Low 3.5-5.7 [facility] Comment on above: Order Comment: The A ptima SARS-CoV-2 assay is a nucleic acid amplification test intended for the qualitative detection of RNA from SARS-CoV-2 isolated and purified from nasopharyngeal (TRAIN CALLER),oropharyngeal (OP), nasal swab, sputum, and bronchoalveolar lavage (BAL) specimens from patients with signs and symptoms of infection who are suspected of COVID-19. Results are for the identification of SARS-CoV-2 RNA. The SARS-CoV-2 RNA is generally detectable during the acute phase of infection. The Aptima SARS-CoV-2 Assay on the [employer] Fusion system is intended for use by laboratory personnel specifically instructed and trained in the operation of the [employer] Fusion system. The Aptima SARS-CoV-2 assay is [...] information. Performed By: #### 3 [id number] #### [facility] [address] ALKALINE PHOSPH 174 IU/L High 34-104 [facility] Comment on above: Order Comment: The A ptima SARS-CoV-2 assay is a nucleic acid amplification test intended for the qualitative detection of RNA from SARS-CoV-2 isolated and purified from nasopharyngeal (TRAIN CALLER),oropharyngeal (OP), nasal swab, sputum, and bronchoalveolar lavage (BAL) specimens from patients with signs and symptoms of infection who are suspected of COVID-19. Results are for the identification of SARS-CoV-2 RNA. The SARS-CoV-2 RNA is generally detectable during the acute phase of infection. The Aptima SARS-CoV-2 Assay on the [employer] and [employer] Fusion system is intended for use by laboratory personnel specifically instructed and trained in the operation of the [employer] system. The Aptima SARS-CoV-2 assay is [...] information. Performed By: #### 3 [id number] #### [facility] [address] ALT [Catalytic activity/Vol] 21 U/L Normal 7-52 [facility] Comment on above: Order Comment: The A ptima SARS-CoV-2 assay is a nucleic acid amplification test intended for the qualitative detection of RNA from SARS-CoV-2 isolated and purified from nasopharyngeal (TRAIN CALLER),oropharyngeal (OP), nasal swab, sputum, and bronchoalveolar lavage (BAL) specimens from patients with signs and symptoms of infection who are suspected of COVID-19. Results are for the identification of SARS-CoV-2 RNA. The SARS-CoV-2 RNA is generally detectable during the acute phase of infection. The Aptima SARS-CoV-2 Assay on the [employer] system is intended for use by laboratory personnel specifically instructed and trained in the operation of the [employer] system. The Aptima SARS-CoV-2 assay is [...] information. Performed By: #### 3 1792 #### [facility] [address] AST [Catalytic activity/Vol] 9 U/L Low 13-39 The [facility] Comment on above: Order Comment: The A ptima SARS-CoV-2 assay is a nucleic acid amplification test intended for the qualitative detection of RNA from SARS-CoV-2 isolated and purified from nasopharyngeal (TRAIN CALLER),oropharyngeal (OP), nasal swab, sputum, and bronchoalveolar lavage (BAL) specimens from patients with signs and symptoms of infection who are suspected of COVID-19. Results are for the identification of SARS-CoV-2 RNA. The SARS-CoV-2 RNA is generally detectable during the acute phase of infection. The Aptima SARS-CoV-2 Assay on the [employer] system is intended for use by laboratory personnel specifically instructed and trained in the operation of the [employer] system. The Aptima SARS-CoV-2 assay is [...] and epidemiological information. Performed By: #### 3 0712 #### [facility] 3000 [facility]. [place], [place] [id number] [place] [address] Bilirubin [Mass/Vol] 1.9 mg/dL High 0.3-1.0 The [facility] Comment on above: Order Comment: The A ptima SARS-CoV-2 assay is a nucleic acid amplification test intended for the qualitative detection of RNA from SARS-CoV-2 isolated and purified from nasopharyngeal (TRAIN CALLER),oropharyngeal (OP), nasal swab, sputum, and bronchoalveolar lavage (BAL) specimens from patients with signs and symptoms of infection who are suspected of COVID-19. Results are for the identification of SARS-CoV-2 RNA. The SARS-CoV-2 RNA is generally detectable during the acute phase of infection. The Aptima SARS-CoV-2 Assay on the [employer] system is intended for use by laboratory personnel specifically instructed and trained in the operation of the [employer] system. The Aptima SARS-CoV-2 assay is [...] information. Performed By: #### 3 1792 #### [facility] [address] Bilirubin.direct [Mass/Vol] 0.8 mg/dL High 0.0-0.2 The [facility] Comment on above: Order Comment: The A ptima SARS-CoV-2 assay is a nucleic acid amplification test intended for the qualitative detection of RNA from SARS-CoV-2 isolated and purified from nasopharyngeal (TRAIN CALLER),oropharyngeal (OP), nasal swab, sputum, and bronchoalveolar lavage (BAL) specimens from patients with signs and symptoms of infection who are suspected of COVID-19. Results are for the identification of SARS-CoV-2 RNA. The SARS-CoV-2 RNA is generally detectable during the acute phase of infection. The Aptima SARS-CoV-2 Assay on the [employer] system is intended for use by laboratory personnel specifically instructed and trained in the operation of the [employer] system. The Aptima SARS-CoV-2 assay is [...] information. Performed By: #### 3 1792 #### [facility] [address] [employer] Protein [Mass/Vol] 6.1 g/dL Normal 6.0-8.3 [facility] Comment on above: Order Comment: The A ptima SARS-CoV-2 assay is a nucleic acid amplification test intended for the qualitative detection of RNA from SARS-CoV-2 isolated and purified from nasopharyngeal (TRAIN CALLER),oropharyngeal (OP), nasal swab, sputum, and bronchoalveolar lavage (BAL) specimens from patients with signs and symptoms of infection who are suspected of COVID-19. Results are for the identification of SARS-CoV-2 RNA. The SARS-CoV-2 RNA is generally detectable during the acute phase of infection. The Aptima SARS-CoV-2 Assay on the [employer] system is intended for use by laboratory personnel specifically instructed and trained in the operation of the [employer] system. The Aptima SARS-CoV-2 assay is [...] information. Performed By: #### 3 1792 #### [facility] [address] [place] [address], [facility] MAGNESIUM BLOOD 04-02-2022 Magnesium [Mass/Vol] 1.3 mg/dL Low 1.9-2.7 [facility] Comment on above: Order Comment: The A ptima SARS-CoV-2 assay is a nucleic acid amplification test intended for the qualitative detection of RNA from SARS-CoV-2 isolated and purified from nasopharyngeal (TRAIN CALLER),oropharyngeal (OP), nasal swab, sputum, and bronchoalveolar lavage (BAL) specimens from patients with signs and symptoms of infection who are suspected of COVID-19. Results are for the identification of SARS-CoV-2 RNA. The SARS-CoV-2 RNA is generally detectable during the acute phase of infection. The Aptima SARS-CoV-2 Assay on the goodideazs system is intended for use by laboratory personnel specifically instructed and trained in the operation of the [employer] system. The Aptima SARS-CoV-2 assay is [...] information. Performed By: #### 3 1792 #### [facility] [address] [place] [address], [facility] PHOSPHORUS BLOOD Phosphate [Mass/Vol] 2.9 mg/dL Normal 2.5-5.0 [facility] Comment on above: Order Comment: The A ptima SARS-CoV-2 assay is a nucleic acid amplification test intended for the qualitative detection of RNA from SARS-CoV-2 isolated and purified from nasopharyngeal (TRAIN CALLER),oropharyngeal (OP), nasal swab, sputum, and bronchoalveolar lavage (BAL) specimens from patients with signs and symptoms of infection who are suspected of COVID-19. Results are for the identification of SARS-CoV-2 RNA. The SARS-CoV-2 RNA is generally detectable during the acute phase of infection. The Aptima SARS-CoV-2 Assay on the [employer] system is intended for use by laboratory personnel specifically instructed and trained in the operation of the [employer] system. The Aptima SARS-CoV-2 assay is [...] information. Performed By: #### 3 1792 #### [facility] [address] POC GLUCOSE LABon 04-02-2022 Glucose [Mass/Vol] 126 mg/dL High 70-100 [facility] Comment on above: Performed By: #### 8 [id number] #### [facility] 3000 [place] [address], [facility] Glucose [Mass/Vol] 102 mg/dL High 70-100 [facility] Comment on above: Performed By: #### 8 5499 ####[facility] [place] [address], [facility] Glucose [Mass/Vol] 123 mg/dL High 70-100 [facility] Comment on above: Performed By: #### 8 [id number] #### [facility] [address] [place] [address], [facility] Glucose [Mass/Vol] 96 mg/dL Normal 70-100 [facility] Comment on above: Performed By: #### 8 [id number] #### [facility] [address] [place] [address], [facility] POC SARS COV2 IDon 2 SARS-CoV-2 (COVID-19) RNA MATTHEW+probe Ql (Unsp spec) Negative Normal NEGATIVE [facility] Comment on above: Result Comment: ID [...] Accreditation. Performed By: #### 3 1921 #### [address] PROTHROMBIN TIMEon 2 INR Coag (PPP) [Relative time] 1.21 {INR} High 0.91-1.16 [facility] Comment on above: Order Comment: No: [...] 1995;[id number]. Performed By: #### 8 [id number] #### [facility] 3000 [facility] [address] PT Coag (PPP) [Time] 15.3 s High 12.3-14.8 [facility] Comment on above: Order Comment: No: D o not add to previous draw Result Comment: ALL RESULTS MUST BE INTERPRETED WITH RESPECT TO BLOOD DRAWING ARTIFACT OR DILUTION ERROR OF ANTICOAGULANT AT THE TIME OF SAMPLING. Performed By: #### 8 [id number] #### [facility] [address] UFH HEPARIN ASSAYon 04-02-20 22 UNFRACTIONATED HEPARIN 0.96 IU/mL Critically high 0.30-0.70 [facility] Comment on above: Result Comment: Resu lt checked and called. Accurately read back by Eyal Griffin RN at 0543 Rivaroxaban and Apixaban will interfere with the anti Xa assay used to monitor UFH and LMWH. Performed By: #### 8 [id number] #### [facility] 3000 [facility]. [address] *SARS-CoV-2 COVID-19on 04-01 SARS-CoV-2 (COVID-19) RNA MATTHEW+probe Ql (Unsp spec) Not detected Normal Not Detected [facility] Comment on above: Order Comment: The A ptima SARS-CoV-2 assay is a nucleic acid amplification test intended for the qualitative detection of RNA from SARS-CoV-2 isolated and purified from nasopharyngeal (TRAIN CALLER),oropharyngeal (OP), nasal swab, sputum, and bronchoalveolar lavage (BAL) specimens from patients with signs and symptoms of infection who are suspected of COVID-19. Results are for the identification of SARS-CoV-2 RNA. The SARS-CoV-2 RNA is generally detectable during the acute phase of infection. The Aptima SARS-CoV-2 Assay on the [employer] system is intended for use by laboratory personnel specifically instructed and trained in the operation of the [employer] system. The Aptima SARS-CoV-2 assay is [...] information. Performed By: #### 3 1792 #### [facility] 3000 [facility]. [address] AMMONIAon 04-01-2022 Ammonia (P) [Mass/Vol] ug/dL Critically low 11-32 The [facility] Comment on above: Performed By: #### A MM ####[facility] [address] [place], [place] [address]DrLydia Barragan APTTon 04-01-2022 aPTT Coag (Bld) [Time] 35.4 s High 25.0-35.0 [facility] Comment on above: Order Comment: No: [...] PURPOSE. Performed By: #### 8 [id number] #### [facility] 3000 [facility]. [address] CBC AUTO DIFFon 04-01-2022 BASO # 0.2 103/ul Critically high 0.0-0.1 The [facility] Comment on above: Performed By: #### C BC ####[facility] [address] [place] [address]DrLydia Barragan Basophils/100 WBC (Bld) 0.6 % Normal 0.2-2.0 The [facility] Comment on above: Performed By: #### C BC ####[facility] [address] [place], [place] [address]DrLydia Barragan EO # 0.0 103/ul Normal 0.0-0.7 [facility] Comment on above: Performed By: #### C BC ####[facility] [address] [place] [address]Dr. Bhavani Laurel Eosinophils/100 WBC (Bld) 0.1 % Critically low 0.9-7.0 [facility] Comment on above: Performed By: #### C BC ####[facility] [address] [place], [place] [address]Dr. Jayceeroxi Laurel Erythrocyte distribution width (RBC) [Ratio] 17.8 % Critically high 11.0-15.0 [facility] Comment on above: Performed By: #### C BC ####[facility] [address] [place], [place] [address]Dr. Bhavani Barragan Hematocrit (Bld) [Volume fraction] 39.0 % Normal 36.0-48.0 [facility] Comment on above: Performed By: #### C BC ####[facility] [address] [place], [place] [address]Dr. Bhavani Barragan Hemoglobin (Bld) [Mass/Vol] 11.9 g/dL Critically low 12.0-16.0 [facility] Comment on above: Performed By: #### C BC ####[facility] [address] [place], [place] [address]Dr. Bhavani Barragan IG # 0.74 10e3/ul Critically high 0.00-0.03 [facility] Comment on above: Performed By: #### C BC ####[facility] [address] [place], [place] [address]Dr. Bhavani Barragan IG % 2.2 % Critically high 0.0-0.5 The [facility] Comment on above: Performed By: #### C BC ####[facility] [address] [place], [place] [address]DrLydia Barragan LYMPH # 0.9 103/ul Critically low 1.2-3.8 The [facility] Comment on above: Performed By: #### C BC ####[facility] [address] [place], [place] [address]DrLydia Barragan Lymphocytes/100 WBC (Bld) 2.7 % Critically low 20.5-60.0 [facility] Comment on above: Performed By: #### C BC ####[facility] [address] [place] [address]DrLydia Barragan MANUAL DIFF REQ NO Normal The [facility] Comment on above: Performed By: #### C BC ####[facility] [address] [place] [id number] Barragan MCH (RBC) [Entitic mass] 29.8 pg Normal 26.7-34.0 [facility] Comment on above: Performed By: #### C BC ####[facility] [address] [place], [place] [address]DrLydia Barragan MCHC (RBC) [Mass/Vol] 30.5 g/dL Normal 29.9-35.2 [facility] Comment on above: Performed By: #### C BC ####[facility] [address] [place], [place] [address]DrLydia Barragan MCV (RBC) [Entitic vol] 97.5 fL Normal 81.0-99.0 [facility] Comment on above: Performed By: #### C BC ####[facility] [address] [place], [place] [address]DrLydia Barragan MONO # 0.6 103/ul Normal 0.3-0.8 [facility] Comment on above: Performed By: #### C BC ####[facility] [address] [place], [place] [address]DrLydia Barragan Monocytes/100 WBC (Bld) 1.7 % Normal 1.7-12.0 [facility] Comment on above: Performed By: #### C BC ####[facility] [address] [place], [place] [address]DrLydia Barragan NEUT # 30.7 103/ul Critically high 1.4-6.5 The [facility] Comment on above: Performed By: #### C BC ####[facility] [address] [place], [place] [address]DrLydia Barragan Neutrophils/100 WBC (Bld) 92.7 % Critically high 43.0-75.0 [facility] Comment on above: Performed By: #### C BC ####[facility] [address] [place] [id number]. Bhavani Barragan Platelet mean volume (Bld) [Entitic vol] 9.8 fL Normal 9.5-13.5 [facility] Comment on above: Performed By: #### C BC ####[facility] [address] [place] [address]Dr. Bhavani Barragan PLT 372 103/ul Normal 150-450 [facility] Comment on above: Performed By: #### C BC ####[facility] [address] [place] [address]Dr. Bhavani Barragan RBC 4.00 106/ul Critically low 4.20-5.40 The [facility] Comment on above: Performed By: #### C BC ####[facility] [address] [place] [address]Dr. Bhavani Barragan WBC 33.2 103/ul Critically high 4.0-11.0 The [facility] Comment on above: Performed By: #### C BC ####[facility] [address] [place] [address]Dr. Bhavani Barragan CBC W/DIFFon 04-01-2022 ABS IMM GRANS 0.7 10*3/uL High 0.0-0.2 The [facility] Comment on above: Order Comment: No: D o not add to previous draw Performed By: #### 8 5499 #### [facility] [address] [place] [address], [facility] ABS NEUTROPHILS 30.0 10*3/uL High 1.6-7.6 The [facility] Comment on above: Order Comment: No: D o not add to previous draw Performed By: #### 8 5499 #### [facility] [address] [place] [address], [place] Basophils (Bld) [#/Vol] 0.2 10*3/uL Normal 0.0-0.2 The [facility] Comment on above: Order Comment: No: D o not add to previous draw Performed By: #### 8 5499 #### [facility] [address] [place] [address], [facility] Basophils/100 WBC (Bld) 0.5 % Normal 0.0-1.0 [facility] Comment on above: Order Comment: No: D o not add to previous draw Performed By: #### 8 5499 #### [facility] [address] [place] [address], [facility] Eosinophils (Bld) [#/Vol] 0.0 10*3/uL Normal 0.0-0.5 [facility] Comment on above: Order Comment: No: D o not add to previous draw Performed By: #### 8 5499 #### [facility] [address] [place] [address], [facility] Eosinophils/100 WBC (Bld) 0.1 % Normal 0.0-6.0 [facility] Comment on above: Order Comment: No: D o not add to previous draw Performed By: #### 8 [id number] #### [facility] 3000 [facility] [place] [address], [facility] Erythrocyte distribution width (RBC) [Ratio] 18.3 % High 11.5-15.0 [facility] Comment on above: Order Comment: No: D o not add to previous draw Performed By: #### 8 [id number] #### [facility] [address] [place] [address], [place] Hematocrit (Bld) [Volume fraction] 40.4 % Normal 36.0-45.0 [facility] Comment on above: Order Comment: No: D o not add to previous draw Performed By: #### 8 [id number] #### [facility] [address] [place] [address], [facility] Hemoglobin (Bld) [Mass/Vol] 12.9 g/dL Normal 12.0-15.0 [facility] Comment on above: Order Comment: No: D o not add to previous draw Performed By: #### 8 [id number] #### [facility] [address] [place] [address], [facility] IMMATURE GRANS 2.1 % High 0.0-1.0 The [facility] Comment on above: Order Comment: No: D o not add to previous draw Performed By: #### 8 [id number] #### [facility] [address] [place] [address], [facility] Lymphocytes (Bld) [#/Vol] 0.8 10*3/uL Low 1.2-4.0 [facility] Comment on above: Order Comment: No: D o not add to previous draw Performed By: #### 8 [id number] #### [facility] 3000 [facility] [place] [address], [facility] Lymphocytes/100 WBC (Bld) 2.6 % Low 20.0-45.0 [facility] Comment on above: Order Comment: No: D o not add to previous draw Performed By: #### 8 [id number] #### [facility] 3000 [facility] [place] [address], [facility] MCH (RBC) [Entitic mass] 30.6 pg Normal 27.0-33.0 [facility] Comment on above: Order Comment: No: D o not add to previous draw Performed By: #### 8 [id number] #### [facility] [address] [facility] [place] [address], [facility] MCHC (RBC) [Mass/Vol] 31.9 g/dL Low 32.0-35.0 [facility] Comment on above: Order Comment: No: D o not add to previous draw Performed By: #### 8 [id number] #### [facility] [address] [place] [id number], [facility] MCV (RBC) [Entitic vol] 96.0 fL Normal 82.0-98.0 [facility] Comment on above: Order Comment: No: D o not add to previous draw Performed By: #### 8 [id number] #### [facility] [address] [place] [address], [facility] Monocytes (Bld) [#/Vol] 0.5 10*3/uL Normal 0.1-1.0 [facility] Comment on above: Order Comment: No: D o not add to previous draw Performed By: #### 8 [id number] #### [facility] [address] [place] [id number], [facility] MONOS 1.7 % Low 5.0-12.0 [facility] Comment on above: Order Comment: No: D o not add to previous draw Performed By: #### 8 [id number] #### [facility] [address] [place] [id number], [facility] Neutrophils/100 WBC (Bld) 93.0 % High 40.0-72.0 [facility] Comment on above: Order Comment: No: D o not add to previous draw Performed By: #### 8 [id number] #### [facility] [address] [facility] [place] [address], [facility] Nucleated RBC/100 WBC (Bld) [Ratio] 0 % Normal 0-0 [facility] Comment on above: Order Comment: No: D o not add to previous draw Performed By: #### 8 [id number] #### [facility] [address] [place] [address], [facility] PLAT CNT 375 10*3/uL Normal 150-400 [facility] Comment on above: Order Comment: No: D o not add to previous draw Performed By: #### 8 [id number] #### [facility] [address] [place] [address], [facility] RBC (Bld) [#/Vol] 4.21 10*6/uL Normal 3.80-5.00 [facility] Comment on above: Order Comment: No: D o not add to previous draw Performed By: #### 8 [id number] #### [facility] [address] [place] [address], [facility] WBC (Bld) [#/Vol] 32.19 10*3/uL High 4.00-10.60 [facility] Comment on above: Order Comment: No: D o not add to previous draw Performed By: #### 8 [id number] #### [facility] [address] [place] [address], [facility] COMP METABOLIC PANELon 04-01 Albumin [Mass/Vol] 3.1 g/dL Low 3.5-5.7 [facility] Comment on above: Order Comment: No: D o not add to previous draw Performed By: #### 2 2706 #### [facility] [address] [facility] [place] [address], [facility] ALKALINE PHOSPH 208 IU/L High 34-104 [facility] Comment on above: Order Comment: No: D o not add to previous draw Performed By: #### 2 2706 #### [facility] [address] [facility] [place] [address], [facility] ALT [Catalytic activity/Vol] 27 U/L Normal 7-52 [facility] Comment on above: Order Comment: No: D o not add to previous draw Performed By: #### 2 2706 #### [facility] [address] [facility] [place] [address], [facility] AST [Catalytic activity/Vol] 12 U/L Low 13-39 [facility] Comment on above: Order Comment: No: D o not add to previous draw Performed By: #### 2 2706 #### [facility] [address] [place] [address], [facility] Bilirubin [Mass/Vol] 1.8 mg/dL High 0.3-1.0 [facility] Comment on above: Order Comment: No: D o not add to previous draw Performed By: #### 2 2706 #### [facility] [address] [place] [address], [place] Calcium [Mass/Vol] 8.3 mg/dL Low 8.6-10.3 [facility] Comment on above: Order Comment: No: D o not add to previous draw Performed By: #### 2 2706 #### [facility] [address] [place] [address], [place] Chloride [Moles/Vol] 103 mmol/L Normal 98-107 [facility] Comment on above: Order Comment: No: D o not add to previous draw Performed By: #### 2 2706 #### [facility] [address] [place] [address], [place] CO2 [Moles/Vol] 20 mmol/L Low 21-31 [facility] Comment on above: Order Comment: No: D o not add to previous draw Performed By: #### 2 2706 #### [facility] [address] [place] [address], [place] Creatinine [Mass/Vol] 1.12 mg/dL Normal 0.60-1.20 [facility] Comment on above: Order Comment: No: D o not add to previous draw Performed By: #### 2 2706 #### [facility] [address] [place] [address], [facility] eGFR- 56 ml/min/1.73sq m Abnormal >60 [facility] Comment on above: Order Comment: No: D o not add to previous draw Result Comment: Calc ulation may not be valid for patients over 70 years Performed By: #### 2 2706 #### [facility] [address] [place] [address], [place] eGFR- non- 47 ml/min/1.73sq m Abnormal >60 [facility] Comment on above: Order Comment: No: D o not add to previous draw Result Comment: Calc ulation may not be valid for patients over 70 years Performed By: #### 2 2706 #### [facility] [facility] [address] [place] [address], [facility] Glucose [Mass/Vol] 110 mg/dL High 70-100 [facility] Comment on above: Order Comment: No: D o not add to previous draw Performed By: #### 2 2706 #### [facility] [address] [place] [address], [facility] Potassium [Moles/Vol] 4.1 mmol/L Normal 3.5-5.1 The [facility] Comment on above: Order Comment: No: D o not add to previous draw Performed By: #### 2 2706 #### [facility] [address] [place] [address], [facility] Protein [Mass/Vol] 6.1 g/dL Normal 6.0-8.3 [facility] Comment on above: Order Comment: No: D o not add to previous draw Performed By: #### 2 2706 #### [facility] [address] [place] [address], [facility] Sodium [Moles/Vol] 134 mmol/L Low 136-145 [facility] Comment on above: Order Comment: No: D o not add to previous draw Performed By: #### 2 2706 #### [facility] [address] [place] [address], [facility] Urea nitrogen [Mass/Vol] 21 mg/dL Normal 7-25 The [facility] Comment on above: Order Comment: No: D o not add to previous draw Performed By: #### 2 2706 #### [facility] [address] [place] [address], [place] DIGOXINon 04-01-2022 Digoxin [Mass/Vol] 0.6 ng/mL Low 0.7-2.0 [facility] Comment on above: Performed By: #### 2 2686 #### [facility] [address] [place] [address], [place] DIRECT BILIon 04-01-2022 Bilirubin.direct [Mass/Vol] 0.7 mg/dL High 0.0-0.2 [facility] Comment on above: Order Comment: No: D o not add to previous draw Performed By: #### 2 2706 #### [facility] [address] [place] [address], [place] LIPASEon 04-01-2022 Lipase [Catalytic activity/Vol] 2234.0 U/L Critically high 73.0-393.0 [facility] Comment on above: Performed By: #### L IPA, CMP ####[facility] [address] [place] [id number]. Bhavani Barragan LIPASE BLOODon 04-01-2022 LIPASE 354 Units/L High 11-82 The [place] [facility] Comment on above: Order Comment: No: D o not add to previous draw Performed By: #### 2 2706 #### [facility] [address] [place] [address], [place] POC GLUCOSE LABon 04-01-2022 Glucose [Mass/Vol] 114 mg/dL High 70-100 [facility] Comment on above: Performed By: #### 8 5499 #### [facility] [address] [place] [address], [place] Glucose [Mass/Vol] 113 mg/dL High 70-100 [facility] Comment on above: Performed By: #### 8 5499 #### [facility] [address] [place] [address], [place] Glucose [Mass/Vol] 101 mg/dL High 70-100 [facility] Comment on above: Performed By: #### 3 0313 #### [facility] [address] [place] [address], [place] PROF 14(COMP METB)on 022 Albumin [Mass/Vol] 2.0 g/dL Critically low 3.4-5.0 [facility] Comment on above: Performed By: #### L IPA, CMP ####[facility] [address] [place] [address]Dr. Bhavnai Barragan Albumin/Globulin [Mass ratio] 0.5 {ratio} Normal [facility] Comment on above: Performed By: #### L IPA, CMP ####[facility] [address] [place] [address]Dr. Bhavani Barragan ALP [Catalytic activity/Vol] 247 U/L Critically high 46-116 [facility] Comment on above: Performed By: #### L IPA, CMP ####[facility] Xmrm[address]oku[address] [place], [place] [address]Dr. Bhavani Barragan ALT [Catalytic activity/Vol] 50 U/L Normal 14-59 [facility] Comment on above: Performed By: #### L IPA, CMP ####[facility] [address]hw[address]ms[address] [place], [place] [address]Dr. Bhavani Barragan Anion gap [Moles/Vol] 11.2 mmol/L Normal [facility] Comment on above: Performed By: #### L IPA, CMP ####[facility] Mphvzjswxc[address] [place], [place] [address]Dr. Bhavani Barragan AST [Catalytic activity/Vol] 19 U/L Normal 15-37 [facility] Comment on above: Performed By: #### L IPA, CMP ####[facility] J[address]cmqdjei[address] [place], [place] [address]Dr. Bhavani Barragan Bilirubin [Mass/Vol] 1.5 mg/dL Critically high 0.2-1.0 [facility] Comment on above: Performed By: #### L IPA, CMP ####[facility] Rmdxrcq[address] [place], [place] [address]Dr. Bhavani Barragan Calcium [Mass/Vol] 8.1 mg/dL Critically low 8.5-10.1 [facility] Comment on above: Performed By: #### L IPA, CMP ####[facility] [address] [place] [address]Dr. Bhavani Barragan Chloride [Moles/Vol] 105 mmol/L Normal 98-107 The [facility] Comment on above: Performed By: #### L IPA, CMP ####[facility] Jpgtiqaltt[address] [place], [place] [address]Dr. Bhavani Barragan CO2 [Moles/Vol] 25.1 mmol/L Normal 21.0-32.0 The [facility] Comment on above: Performed By: #### L IPA, CMP ####[facility] Lmivuhxoug[address] [place], [place] [address]Dr. Bhavani Barragan Creatinine [Mass/Vol] 1.39 mg/dL Critically high 0.55-1.02 [facility] Comment on above: Performed By: #### L IPA, CMP ####[facility] Br[address]ks[address] [place], [place] [address]Dr. Bhavani Barragan EGFR-AF ALBANIAN 44 mL/min/1.73m2 Critically low >=60 [facility] Comment on above: Performed By: #### L IPA, CMP ####[facility] Rjmiolzhew[address] [place], [place] [address]Dr. Bhavani Barragan EGFR-NON AF ALBANIAN 36 mL/min/1.73m2 Critically low >=60 The [facility] Comment on above: Performed By: #### L IPA, CMP ####[facility] Ffnfxmigqp[address] [place], [place] [address]Dr. Bhavani Barragan Globulin (S) [Mass/Vol] 4.3 g/dL Normal [facility] Comment on above: Performed By: #### L IPA, CMP ####[facility] Xaxecuzeyj[address] [place], [place] [address]Dr. Bhavani Barragan Glucose [Mass/Vol] 113 mg/dL Critically high 74-106 [facility] Comment on above: Performed By: #### L IPA, CMP ####[facility] Srpnixxkzj[address] [place], [place] [address]Dr. Bhavani Barragan Potassium [Moles/Vol] 4.3 mmol/L Normal 3.5-5.1 The [facility] Comment on above: Performed By: #### L IPA, CMP ####[facility] [address] [place] [address]Dr. Bhavani Barragan Protein [Mass/Vol] 6.3 g/dL Critically low 6.4-8.2 Th e [facility] Comment on above: Performed By: #### L IPA, CMP ####[facility] [address] [place] [address]Dr. Bhavani Barragan Sodium [Moles/Vol] 137 mmol/L Normal 136-145 [facility] Comment on above: Performed By: #### L IPA, CMP ####[facility] [address]cuc[address] [place], [place] [address]Dr. Bhavani Barragan Urea nitrogen [Mass/Vol] 26.0 mg/dL Critically high 7.0-18.0 [facility] Comment on above: Performed By: #### L IPA, CMP ####[facility] [address]ok[address] [place], [place] [address]Dr. Bhavani Barragan Urea nitrogen/Creatinine [Mass ratio] 18.7 mg/mg Normal [facility] Comment on above: Performed By: #### L IPA, CMP ####[facility] Wzltlyztdn[address] [place], [place] [address]Dr. Bhavani Barragan PROTIMEon 04-01-2022 INR Coag (PPP) [Relative time] 1.14 {INR} Normal [facility] Comment on above: Performed By: #### P TT, PT ####[facility] [address] [place], [place] [address]Dr. Bhavani Barragan INR GUIDELINES SEE BELOW Normal The [facility] Comment on above: Result Comment: WALKER RED INR: 2.0 - 3.0 CONDITIONS NOT LISTED BELOW 2.5 - 3.5 FOR PROSTHETIC HEART VALVE REPLACEMENT 2.5 - 3.5 RECURRENT THROMBOSIS Performed By: #### P TT, PT ####[facility] [address]zz[address] [place], [place] [address]Dr. Bhavani Barragan PT Coag (PPP) [Time] 12.2 s Critically high 9.0-11.6 [facility] Comment on above: Performed By: #### P TT, PT ####[facility] [address] [place], [place] [address]Ht. Bhavani Barragan PTTon 04-01-2022 aPTT Coag (Bld) [Time] 25.4 s Normal 22.3-36.2 [facility] Comment on above: Performed By: #### P TT, PT ####[facility] [address] [place], [place] [address]Az. Bhavani Barragan TROPONIN-Ion 04-01-2022 Troponin I.cardiac [Mass/Vol] 0.02 ng/mL Normal 0.00-0.04 [facility] Comment on above: Result Comment: REFE RENCE RANGES: 0.00 - 0.04 ng/ml NORMAL 0.05 - 0.50 ng/ml INDETERMINATE > 0.50 ng/ml CONSISTENT WITH AN M.I. Performed By: #### 2 2706 #### [facility] [address] UFH HEPARIN ASSAYon 04-01-20 UNFRACTIONATED HEPARIN >1.00 Critically high 0.30-0.70 [facility] Comment on above: Result Comment: Resu lt checked and called. Accurately read back by EYAL GRIFFIN RN ON 04/01/2022 AT 22:07 Rivaroxaban and Apixaban will interfere with the anti Xa assay used to monitor UFH and LMWH. Performed By: #### 8 [id number] #### [facility] 3000 [facility]. [address] UNFRACTIONATED HEPARIN >1.00 Critically high 0.30-0.70 The [facility] Comment on above: Result Comment: Resu lt checked and called. Accurately read back by YANICK MICHAELS RN ON 04/01/2022 AT 16:07 Rivaroxaban and Apixaban will interfere with the anti Xa assay used to monitor UFH and LMWH. Performed By: #### 8 [id number] #### [facility] 3000 [facility] [place] [place] [address], [facility] AMMONIAon 03-31-2022 Ammonia (P) [Mass/Vol] ug/dL Critically low 11-32 The [facility] Comment on above: Performed By: #### A MM ####[facility] [address] [place] [address]Dr. Bhavani Barragan CBC AUTO DIFFon 03-31-2022 BASO # 0.1 103/ul Normal 0.0-0.1 The [facility] Comment on above: Performed By: #### C BC ####[facility] Jkalveot[address] [place], [place] [address]Dr. Bhavani Barragan Basophils/100 WBC (Bld) 0.4 % Normal 0.2-2.0 [facility] Comment on above: Performed By: #### C BC ####[facility] X[address] [place], [place] [address]Dr. Bhavani Barragan EO # 0.0 103/ul Normal 0.0-0.7 [facility] Comment on above: Performed By: #### C BC ####[facility] Tvmuerwshz[address] [place], [place] [address]Dr. Bhavani Barragan Eosinophils/100 WBC (Bld) 0.1 % Critically low 0.9-7.0 The [facility] Comment on above: Performed By: #### C BC ####[facility] [address]qlleama[address] [place], [place] [address]Dr. Bhavani Barragan Erythrocyte distribution width (RBC) [Ratio] 17.7 % Critically high 11.0-15.0 [facility] Comment on above: Performed By: #### C BC ####[facility] Gianjmtbj[address] [place], [place] [address]Dr. Bhavani Barragan Hematocrit (Bld) [Volume fraction] 36.5 % Normal 36.0-48.0 [facility] Comment on above: Performed By: #### C BC ####[facility] Ieamrombeh[address] [place], [place] [address]Dr. Bhavani Barragan Hemoglobin (Bld) [Mass/Vol] 11.5 g/dL Critically low 12.0-16.0 [facility] Comment on above: Performed By: #### C BC ####[facility] [address] [place], [place] [address]Dr. Bhavani Barragan IG # 0.38 10e3/ul Critically high 0.00-0.03 [facility] Comment on above: Performed By: #### C BC ####[facility] [address] [place] [address]DrLydia Championroxi Laurel IG % 1.2 % Critically high 0.0-0.5 [facility] Comment on above: Performed By: #### C BC ####[facility] [address] [place] [address]DrLydia Barragan LYMPH # 0.7 103/ul Critically low 1.2-3.[address] [facility] Comment on above: Performed By: #### C BC ####[facility] [address] [place], [place] [address]DrLydia Barragan Lymphocytes/100 WBC (Bld) 2.4 % Critically low 20.5-60.0 [facility] Comment on above: Performed By: #### C BC ####[facility] [address]txk[address] [place], [place] [address]DrLydia Barragan MANUAL DIFF REQ NO Normal [facility] Comment on above: Performed By: #### C BC ####[facility] [address]om[address] [place], [place] [address]DrLydia Barragan MCH (RBC) [Entitic mass] 30.3 pg Normal 26.7-34.0 [facility] Comment on above: Performed By: #### C BC ####[facility] Xq[address]ug[address] [place], [place] [address]DrLydia Barragan MCHC (RBC) [Mass/Vol] 31.5 g/dL Normal 29.9-35.2 [facility] Comment on above: Performed By: #### C BC ####[facility] [address]xf[address]ugp[address] [place], [place] [address]DrLydia Barragan MCV (RBC) [Entitic vol] 96.3 fL Normal 81.0-99.0 [facility] Comment on above: Performed By: #### C BC ####[facility] Bnahowueqv[address] [place], [place] [address]Dr. Bhavani Barragan MONO # 0.8 103/ul Normal 0.3-0.8 [facility] Comment on above: Performed By: #### C BC ####[facility] [address] [place] [address]Dr. Bhavani Barragan Monocytes/100 WBC (Bld) 2.5 % Normal 1.7-12.0 [facility] Comment on above: Performed By: #### C BC ####[facility] [address] [place] [address]Dr. Bhavani Barragan NEUT # 29.0 103/ul Critically high 1.4-6.5 The [facility] Comment on above: Performed By: #### C BC ####[facility] [address] [place] [address]Dr. Bhavani Barragan Neutrophils/100 WBC (Bld) 93.4 % Critically high 43.0-75.0 [facility] Comment on above: Performed By: #### C BC ####[facility] [address]qrm[address] [place] [address]Dr. Bhavani Barragan Platelet mean volume (Bld) [Entitic vol] 10.5 fL Normal 9.5-13.5 [facility] Comment on above: Performed By: #### C BC ####[facility] [address] [place] [address]Dr. Bhavani Barragan PLT 346 103/ul Normal 150-450 [facility] Comment on above: Performed By: #### C BC ####[facility] [address]ew[address] [place] [address]Dr. Bhavani Barragan RBC 3.79 106/ul Critically low 4.20-5.40 The [facility] Comment on above: Performed By: #### C BC ####[facility] [address]fhz[address] [place] [address]Dr. Bhavani Barragan WBC 31.0 103/ul Critically high 4.0-11.0 The [facility] Comment on above: Performed By: #### C BC ####[facility] Y[address]ptbsjuk[address] [place] [address]Dr. Bhavani Barragan CT CHEST WO CONon 03-31-2022 CT CHEST WO CON Normal The [facility] LIPASEon 03-31-2022 Lipase [Catalytic activity/Vol] 3577.0 U/L Critically high 73.0-393.0 [facility] Comment on above: Performed By: #### L IPA ####[facility] [address] [place] [address]Dr. Bhavani Barragan MRI ABDOMEN WO CONon 022 MRI ABDOMEN WO CON Normal The [facility] POINT OF CARE GLUCOSEon 03-18 Glucose [Mass/Vol] 153 mg/dL Critically high 74-106 [facility] Comment on above: Performed By: #### P OCGLUC ####[facility] [address]afe[address]dryem[address] [place], [place] [address]Dr. Bhavani Barragan Glucose [Mass/Vol] 158 mg/dL Critically high 74-106 [facility] Comment on above: Performed By: #### P OCGLUC ####[facility] Thjxpxbhjy[address] [place], [place] [address]Dr. Bhavani Barragan Glucose [Mass/Vol] 120 mg/dL Critically high 74-106 [facility] Comment on above: Performed By: #### P OCGLUC ####[facility] Bbriujizzr[address] [place], [place] [address]Dr. Bhavani Barragan Glucose [Mass/Vol] 74 mg/dL Normal 74-106 [facility] Comment on above: Performed By: #### P OCGLUC ####[facility] [address]ktpdqcfxm[address] [place], [place] [address]Dr. Bhavani Barragan PROF 14(COMP METB)on 022 Albumin [Mass/Vol] 1.9 g/dL Critically low 3.4-5.0 [facility] Comment on above: Performed By: #### C MP ####[facility] Dkmfwembdx[address] [place], [place] [address]Dr. Bhavani Barragan Albumin/Globulin [Mass ratio] 0.5 {ratio} Normal [facility] Comment on above: Performed By: #### C MP ####[facility] Tlograsbfc[address] [place], [place] [address]Dr. Bhavani Barragan ALP [Catalytic activity/Vol] 283 U/L Critically high 46-116 [facility] Comment on above: Performed By: #### C MP ####[facility] [address]ls[address] [place] [address]Dr. Bhavani Barragan ALT [Catalytic activity/Vol] 64 U/L Critically high 14-59 [facility] Comment on above: Performed By: #### C MP ####[facility] Ls[address]qkdept[address] [place], [place] [address]Dr. Bhavani Laurel Anion gap [Moles/Vol] 11.6 mmol/L Normal [facility] Comment on above: Performed By: #### C MP ####[facility] T[address]akzmlfz[address] [place], [place] [address]Dr. Bhavani Laurel AST [Catalytic activity/Vol] 52 U/L Critically high 15-37 [facility] Comment on above: Performed By: #### C MP ####[facility] Vhkiugfuxf[address] [place], [place] [address]Dr. Bhavani Laurel Bilirubin [Mass/Vol] 2.8 mg/dL Critically high 0.2-1.0 [facility] Comment on above: Performed By: #### C MP ####[facility] [address]qlbp[address] [place], [place] [address]Dr. Bhavani Laurel Calcium [Mass/Vol] 7.9 mg/dL Critically low 8.5-10.1 [facility] Comment on above: Performed By: #### C MP ####[facility] [address]ihxpecr[address] [place], [place] [address]Dr. Bhavani Laurel Chloride [Moles/Vol] 102 mmol/L Normal 98-107 [facility] Comment on above: Performed By: #### C MP ####[facility] Smndtcpmae[address] [place], [place] [address]Dr. Bhavani Barragan CO2 [Moles/Vol] 27.4 mmol/L Normal 21.0-32.0 The [facility] Comment on above: Performed By: #### C MP ####[facility] Zqezvhquyt[address] [place], [place] [address]Dr. Jayceeroxi Barragan Creatinine [Mass/Vol] 1.48 mg/dL Critically high 0.55-1.02 [facility] Comment on above: Performed By: #### C MP ####[facility] [address] [place] [address]Dr. Bhavani Laurel EGFR-AF ALBANIAN 41 mL/min/1.73m2 Critically low >=60 [facility] Comment on above: Performed By: #### C MP ####[facility] C[address]dpvvwzj[address] [place] [address]Dr. Jayceeroxi Laurel EGFR-NON AF ALBANIAN 34 mL/min/1.73m2 Critically low >=60 [facility] Comment on above: Performed By: #### C MP ####[facility] [address]weaxtwi[address] [place], [place] [address]Dr. Bhavani Barragan Globulin (S) [Mass/Vol] 4.0 g/dL Normal [facility] Comment on above: Performed By: #### C MP ####[facility] Igtbknadur[address] [place], [place] [address]Dr. Bhavani Barragan Glucose [Mass/Vol] 84 mg/dL Normal 74-106 [facility] Comment on above: Performed By: #### C MP ####[facility] [address]lnygiq[address] [place], [place] [address]Dr. Bhavani Barragan Potassium [Moles/Vol] 4.0 mmol/L Normal 3.5-5.1 [facility] Comment on above: Performed By: #### C MP ####[facility] [address]cckiwxd[address] [place], [place] [address]Dr. Bhavani Barragan Protein [Mass/Vol] 5.9 g/dL Critically low 6.4-8.2 [facility] Comment on above: Performed By: #### C MP ####[facility] [address]xq[address]ailx[address] [place], [place] [address]Dr. Bhavani Barragan Sodium [Moles/Vol] 137 mmol/L Normal 136-145 [facility] Comment on above: Performed By: #### C MP ####[facility] Qpefkrjyyh[address] [place], [place] [address]Dr. Bhavani Barragan Urea nitrogen [Mass/Vol] 26.0 mg/dL Critically high 7.0-18.0 [facility] Comment on above: Performed By: #### C MP ####[facility] [address]ndwhooh[address] [place], [place] [address]Dr. Bhavani Barragan Urea nitrogen/Creatinine [Mass ratio] 17.6 mg/mg Normal [facility] Comment on above: Performed By: #### C MP ####[facility] [address]aihyorfbr[address] [place], [place] [address]Dr. Bhavani Laurel PROTIMEon 03-31-2022 INR Coag (PPP) [Relative time] 1.34 {INR} Normal [facility] Comment on above: Performed By: #### P T, PTT ####[facility] Xhfle[address] [place], [place] [address]Dr. Bhavani Laurel INR GUIDELINES SEE BELOW Normal The [facility] Comment on above: Result Comment: WALKER RED INR: 2.0 - 3.0 CONDITIONS NOT LISTED BELOW 2.5 - 3.5 FOR PROSTHETIC HEART VALVE REPLACEMENT 2.5 - 3.5 RECURRENT THROMBOSIS Performed By: #### P T, PTT ####[facility] Odwpbeqqzv[address] [place], [place] [address]Dr. Bhavani Barragan PT Coag (PPP) [Time] 14.2 s Critically high 9.0-11.6 [facility] Comment on above: Performed By: #### P T, PTT ####[facility] [address]mtjdle[address] [place], [place] [address]Dr. Bhavani Laurel PTTon 03-31-2022 aPTT Coag (Bld) [Time] 37.6 s Critically high 22.3-36.2 [facility] Comment on above: Performed By: #### P T, PTT ####[facility] [address]jzqyw[address]ut[address] [place], [place] [address]Dr. Bhavani Laurel XR CHEST 1 Von 03-31-2022 XR CHEST 1 V Normal [facility] AMMONIAon 03-30-2022 Ammonia (P) [Moles/Vol] 30 umol/L Normal 11-32 [facility] Comment on above: Performed By: #### A MM ####[facility] [address] [place] [address]Dr. Bhavani Barragan CBC W MANUAL DIFFon 03-30-20 22 ATYPICAL LYMPH # Normal The [facility] Comment on above: Performed By: #### C OMID ####[facility] [address] [place] [address]Dr. Bhavani Barragan ATYPICAL LYMPH % Normal The [facility] Comment on above: Performed By: #### C OMID ####[facility] [address] [place] [address]Dr. Bhavani Barragan BAND # Normal 0.0-0.3 [facility] Comment on above: Performed By: #### C OMID ####[facility] [address]dauifzkf[address] [place], [place] [address]Dr. Bhavani Barragan BAND % Normal 0-5 [facility] Comment on above: Performed By: #### C OMID ####[facility] Z[address]jwnm[address] [place], [place] [address]Dr. Bhavani Barragan BASOM # 0.00 103/ul Normal 0.00-0.10 [facility] Comment on above: Performed By: #### C OMID ####[facility] [address]uprilslr[address] [place], [place] [address]Dr. Bhavani Barragan BASOM % 0.0 % Critically low 0.2-2.0 [facility] Comment on above: Performed By: #### C OMID ####[facility] [address]wkfq[address] [place], [place] [address]Dr. Bhavani Barragan BLAST # Normal [facility] Comment on above: Performed By: #### C OMID ####[facility] Bfjaudmxcv[address] [place] [address]Dr. Bhavani Barragan BLAST % Normal [facility] Comment on above: Performed By: #### C OMID ####[facility] Kkhwuiqvkh[address] [place] [address]Dr. Bhavani Barragan CORRECTED WBC Normal 4.0-11.[address] [facility] Comment on above: Performed By: #### C OMID ####[facility] Fhilihvxig25[address] [place] [address]Dr. Bhavani Barragan EOS # 0.00 103/ul Normal 0.00-0.70 [facility] Comment on above: Performed By: #### C OMID ####[facility] Hxwyylrkgz7490 [place] [address]Dr. Bhavani Barragan EOS% 0.0 % Critically low 0.9-7.0 The [facility] Comment on above: Performed By: #### C OMID ####[facility] Uomxlqdqln3587 [place] [address]Dr. Bhavani Barragan HCT 39.8 % Normal 36.0-48.0 [facility] Comment on above: Performed By: #### C OMID ####[facility] Bnyblcasjg0690 [place] [address]Dr. Bhavani Barragan HGB 12.2 g/dl Normal 12.0-16.0 [facility] Comment on above: Performed By: #### C OMID ####[facility] Emvsfmjusy0499 [place] [address]Dr. Bhavani Barragan LYMPHM # 0.56 103/ul Critically low 1.20-3.80 The [facility] Comment on above: Performed By: #### C OMID ####[facility] Vezfmgkkeq5179 [place] [address]Dr. Bhavani Barragan LYMPHM% 2.0 % Critically low 20.5-60.0 The [facility] Comment on above: Performed By: #### C OMID ####[facility] Limqtuwolf6110 [place] [address]Dr. Bhavani Barragan MCH 29.7 pg Normal 26.7-34.0 [facility] Comment on above: Performed By: #### C OMID ####[facility] Wqyvsohkka6295 [place] [address]Dr. Bhavani Barragan MCHC 30.7 g/dl Normal 29.9-35.2 [facility] Comment on above: Performed By: #### C OMID ####[facility] Hbjyudrabt[address] [place], [place] [address]Dr. Bhavani Barragan MCV 96.8 fL Normal 81.0-99.0 The [facility] Comment on above: Performed By: #### C OMID ####[facility] Agghibuxma8484 [place], [place] [address]Yw. Bhavani Barragan METAMYELOCYTE # Normal The [facility] Comment on above: Performed By: #### C OMID ####[facility] Fmmexlmgtn8005 [place], [place] [address]Ai. Bhavani Barragan METAMYELOCYTE % Normal The [facility] Comment on above: Performed By: #### C OMID ####[facility] Cdvtvsrubp2567 [place], [place] [address]Ws. Bhavani Barragan MONOM# 0.28 103/ul Critically low 0.30-0.80 The [facility] Comment on above: Performed By: #### C OMID ####[facility] Nvbpdnewlc7042 [place] [address]Dr. Bhavani Barragan MONOM% 1.0 % Critically low 1.7-12.[address] [facility] Comment on above: Performed By: #### C OMID ####[facility] Orbvlwftue2245 [place] [address]Dr. Bhavani Barragan MPV 10.2 fL Normal 9.5-13.5 The [facility] Comment on above: Performed By: #### C OMID ####[facility] Luiscfjgdt6439 [place] [address]Dr. Bhavani Barragan MYELOCYTE # Normal [facility] Comment on above: Performed By: #### C OMID ####[facility] Dqowxnieni2752 [place], [place] [address]Jo. Bhavani Barragan MYELOCYTE % Normal [facility] Comment on above: Performed By: #### C OMID ####[facility] Snokpbtuhv1815 [place] [address]Dr. Bhavani Barragan NRBC Normal [facility] Comment on above: Performed By: #### C OMID ####[facility] Mqwwczluir8088 [place] [address]Dr. Bhavani Barragan PLT 371 103/ul Normal 150-450 [facility] Comment on above: Performed By: #### C BCMAN ####[facility] Qxbvklujlt7705 [place], [place] [address]Vg. Bhavani Barragan RBC 4.11 106/ul Critically low 4.20-5.40 [facility] Comment on above: Performed By: #### C BCMAN ####[facility] Mwphxqysxu2603 [place], [place] [address]Yf. Bhavani Barragan RDW 17.4 % Critically high 11.0-15.0 [facility] Comment on above: Performed By: #### C BCJERSON ####[facility] Bpejfpouus2439 [place], [place] [address]Lc. Bhavani Barragan SEG # 27.35 103/ul Critically high 1.40-6.50 [facility] Comment on above: Performed By: #### C BCJERSON ####[facility] Pwtsugulhr1051 [place], [place] [address]Vx. Bhavani Barragan SEG % 97.0 % Critically high 43.0-75.0 [facility] Comment on above: Performed By: #### C BCJERSON ####[facility] Ywmtaucpup4858 [place], [place] [address]Cx. Bhavani Barragan WBC 28.2 103/ul Critically high 4.0-11.0 [facility] Comment on above: Performed By: #### C BCMAN ####[facility] Vrfbgnaclk4658 [place], [place] [address]Yg. Bhavani Barragan POINT OF CARE GLUCOSEon 05- Glucose [Mass/Vol] 92 mg/dL Normal 74-106 [facility] Comment on above: Performed By: #### P OCGLUC ####[facility] Rendyaaqex6055 [place], [place] [address]Mb. Bhavani Barragan Glucose [Mass/Vol] 122 mg/dL Critically high 74-106 [facility] Comment on above: Result Comment: Foll ow Protocol Performed By: #### P OCGLUC ####[facility] Ndorosjzot9154 [place] [address]Dr. Bhavani Barragan Glucose [Mass/Vol] 107 mg/dL Critically high 74-106 T [facility] Comment on above: Performed By: #### P OCGLUC ####[facility] Ifwvnrwoac[address] [place], [place] [address]Dr. Bhavani Barragan PROF 14(COMP METB)on 022 Albumin [Mass/Vol] 2.0 g/dL Critically low 3.4-5.0 Th e [facility] Comment on above: Performed By: #### C MP ####[facility] Xmcvicdvtp[address] [place], [place] [address]Dr. Bhavani Barragan Albumin/Globulin [Mass ratio] 0.5 {ratio} Normal [facility] Comment on above: Performed By: #### C MP ####[facility] Bstfxadkjy[address] [place], [place] [address]Dr. Bhavani Barragan ALP [Catalytic activity/Vol] 298 U/L Critically high 46-116 [facility] Comment on above: Performed By: #### C MP ####[facility] Grnhwftmff[address] [place], [place] [address]Dr. Bhavani Barragan ALT [Catalytic activity/Vol] 94 U/L Critically high 14-59 [facility] Comment on above: Performed By: #### C MP ####[facility] Lwwfpiqjic[address] [place], [place] [address]Dr. Bhavani Barragan Anion gap [Moles/Vol] 12.8 mmol/L Normal [facility] Comment on above: Performed By: #### C MP ####[facility] Qubapnarlm[address] [place], [place] [address]Dr. Bhavani Barragan AST [Catalytic activity/Vol] 73 U/L Critically high 15-37 [facility] Comment on above: Performed By: #### C MP ####[facility] Srdmuewxpu[address] [place], [place] [address]Dr. Bhavani Barragan Bilirubin [Mass/Vol] 3.6 mg/dL Critically high 0.2-1.0 [facility] Comment on above: Performed By: #### C MP ####[facility] Bceggaoyrb[address] [place], [place] [address]Dr. Bhavani Barragan Calcium [Mass/Vol] 7.8 mg/dL Critically low 8.5-10.1 Th [facility] Comment on above: Performed By: #### C MP ####[facility] Qefsarmwyq125[address] [place], [place] [address]Dr. Bhavani Barragan Chloride [Moles/Vol] 103 mmol/L Normal 98-107 [facility] Comment on above: Performed By: #### C MP ####[facility] Dpenovkkig[address] [place], [place] [address]Dr. Bhavani Barragan CO2 [Moles/Vol] 25.2 mmol/L Normal 21.0-32.0 [facility] Comment on above: Performed By: #### C MP ####[facility] Knuhdkwkvc[address] [place], [place] [address]Dr. Bhavani Barragan Creatinine [Mass/Vol] 1.38 mg/dL Critically high 0.55-1.02 [facility] Comment on above: Performed By: #### C MP ####[facility] Segmumzasa[address] [place], [place] [address]Dr. Bhavani Barragan EGFR-AF ALBANIAN 44 mL/min/1.73m2 Critically low >=60 [facility] Comment on above: Performed By: #### C MP ####[facility] Qkbpocoirf[address] [place], [place] [address]Dr. Bhavani Barragan EGFR-NON AF ALBANIAN 37 mL/min/1.73m2 Critically low >=60 [facility] Comment on above: Performed By: #### C MP ####[facility] Yqaumvpxkj[address] [place], [place] [address]Dr. Bhavani Barragan Globulin (S) [Mass/Vol] 4.1 g/dL Normal [facility] Comment on above: Performed By: #### C MP ####[facility] Ldqiqwrwlb7[address] [place], [place] [address]Dr. Bhavani Barragan Glucose [Mass/Vol] 109 mg/dL Critically high 74-106 T [facility] Comment on above: Performed By: #### C MP ####[facility] Lygcaprgks[address] [place], [place] [address]Dr. Bhavani Barragan Potassium [Moles/Vol] 4.0 mmol/L Normal 3.5-5.1 [facility] Comment on above: Performed By: #### C MP ####[facility] Huvvybwvyu65[address] [place], [place] [address]Dr. Bhavani Barragan Protein [Mass/Vol] 6.1 g/dL Critically low 6.4-8.2 Th e [facility] Comment on above: Performed By: #### C MP ####[facility] Kkykcpzfsb[address] [place], [place] [address]Dr. Bhavani Barragan Sodium [Moles/Vol] 137 mmol/L Normal 136-145 [facility] Comment on above: Performed By: #### C MP ####[facility] Mqycrdldqj86[address] [place], [place] [address]Dr. Bhavani Barragan Urea nitrogen [Mass/Vol] 22.0 mg/dL Critically high 7.0-18.0 [facility] Comment on above: Performed By: #### C MP ####[facility] Bndpqfqdtu67[address] [place], [place] [address]Dr. Bhavani Barragan Urea nitrogen/Creatinine [Mass ratio] 15.9 mg/mg Normal [facility] Comment on above: Performed By: #### C MP ####[facility] Gisgrjatte[address] [place], [place] [address]Dr. Bhavani Barragan PROTIMEon 03-30-2022 INR Coag (PPP) [Relative time] 1.28 {INR} Normal [facility] Comment on above: Performed By: #### P T, PTT ####[facility] Lqryanzmmg[address] [place], [place] [address]Dr. Bhavani Barragan INR GUIDELINES SEE BELOW Normal The [facility] Comment on above: Result Comment: WALKER RED INR: 2.0 - 3.0 CONDITIONS NOT LISTED BELOW 2.5 - 3.5 FOR PROSTHETIC HEART VALVE REPLACEMENT 2.5 - 3.5 RECURRENT THROMBOSIS Performed By: #### P T, PTT ####[facility] Ryzlofiprq[address] [place], [place] [address]Dr. Bhavani Barragan PT Coag (PPP) [Time] 13.6 s Critically high 9.0-11.6 [facility] Comment on above: Performed By: #### P T, PTT ####[facility] Qdddlsegke[address] [place], [place] [address]Dr. Bhavani Barragan PTTon 03-30-2022 aPTT Coag (Bld) [Time] 34.9 s Normal 22.3-36.2 [facility] Comment on above: Performed By: #### P T, PTT ####[facility] Lkayetavht[address] [place], [place] [address]Dr. Bhavani Barragan US SINGLE QUAD RT UPPERon US SINGLE QUAD RT UPPER Normal [facility] AMMONIAon 03-29-2022 Ammonia (P) [Moles/Vol] 17 umol/L Normal 11-32 [facility] Comment on above: Performed By: #### A MM ####[facility] Npmmsakzbg[address] [place], [place] [address]Dr. Bhavani Barragan CBC W MANUAL DIFFon 03-29-20 ANISOCYTOSIS 2+ Normal [facility] Comment on above: Performed By: #### C OMID ####[facility] Ylbjhlsdsc[address] [place], [place] [address]Dr. Bhavani Laurel ATYPICAL LYMPH # Normal The [facility] Comment on above: Performed By: #### C OMID ####[facility] Ordatscmwz207[address] [place], [place] [address]Dr. Jayceeroxi Laurel ATYPICAL LYMPH % Normal The [facility] Comment on above: Performed By: #### C BCJERSON ####[facility] Pxmyvqglji[address] [place], [place] [address]Dr. Bhavani Barragan BAND # 1.2 103/ul Critically high 0.0-0.3 The [facility] Comment on above: Performed By: #### C BCJERSON ####[facility] Jbsmhloiai025[address] [place], [place] [address]Dr. Bhavani Barragan BAND % 4 % Normal 0-5 [facility] Comment on above: Performed By: #### C BCMAN ####[facility] Zkhjmhpxpe[address] [place], [place] [address]Dr. Bhavani Barragan BASOM # 0.00 103/ul Normal 0.00-0.10 [facility] Comment on above: Performed By: #### C OMID ####[facility] Mylxuqirkd1193 [place] [address]Dr. Bhavani Barragan BASOM % 0.0 % Critically low 0.2-2.0 [facility] Comment on above: Performed By: #### C BCJERSON ####[facility] Ngedsfbdqr7946 [place] [address]Dr. Bhavani Barragan BLAST # Normal [facility] Comment on above: Performed By: #### C OMID ####[facility] Rfkrxowvzl3305 [place] [address]Dr. Bhavani Barragan BLAST % Normal [facility] Comment on above: Performed By: #### C OMID ####[facility] Fibuhegkcg065[address] [place], [place] [address]Dr. Bhavani Barragan CORRECTED WBC Normal 4.0-11.[address] [facility] Comment on above: Performed By: #### C OMID ####[facility] Bueeojodmp[address] [place], [place] [address]Dr. Bhavani Barragan EOS # 0.00 103/ul Normal 0.00-0.70 [facility] Comment on above: Performed By: #### C OMID ####[facility] Pcrwyniclu[address] [place], [place] [address]Dr. Bhavani Barragan EOS% 0.0 % Critically low 0.9-7.0 [facility] Comment on above: Performed By: #### C OMID ####[facility] Ofwgxnhscq106[address] [place], [place] [address]Dr. Bhavani Barragan HCT 41.4 % Normal 36.0-48.0 [facility] Comment on above: Performed By: #### C OMID ####[facility] Ghohctfwbg[address] [place], [place] [address]Dr. Bhavani Barragan HGB 12.6 g/dl Normal 12.0-16.0 [facility] Comment on above: Performed By: #### C OMID ####[facility] Tsnspzovuh[address] [place], [place] [address]Dr. Bhavani Barragan LYMPHM # 0.62 103/ul Critically low 1.20-3.80 The [facility] Comment on above: Performed By: #### C OMID ####[facility] Vivwbxeajd1702 [place] [address]Dr. Bhavani Barragan LYMPHM% 2.0 % Critically low 20.5-60.0 [facility] Comment on above: Performed By: #### C OMID ####[facility] Dwztcjqpkl9151 [place] [address]Dr. Bhavani Barragan MCH 29.6 pg Normal 26.7-34.0 [facility] Comment on above: Performed By: #### C OMID ####[facility] Iniwqhqttc[address] [place], [place] [address]Dr. Bhavani Barragan MCHC 30.4 g/dl Normal 29.9-35.2 [facility] Comment on above: Performed By: #### Jany ANNE ####[facility] Buyancfple[address] [place], [place] [address]Dr. Bhavani Barragan MCV 97.4 fL Normal 81.0-99.0 [facility] Comment on above: Performed By: #### Jany ANNE ####[facility] Huolvfdhfx[address] [place], [place] [address]Dr. Bhavani Barragan METAMYELOCYTE # Normal The [facility] Comment on above: Performed By: #### Jany ANNE ####[facility] Wwayezuqts5490 [place] [address]Dr. Bhavani Barragan METAMYELOCYTE % Normal The [facility] Comment on above: Performed By: #### C OMID ####[facility] Risgnlsnvx9407 [place] [address]Dr. Bhavani Barragan MONOM# 0.93 103/ul Critically high 0.30-0.80 The [facility] Comment on above: Performed By: #### C OMID ####[facility] Yhqekgzzqh0772 [place] [address]Dr. Bhavani Barragan MONOM% 3.0 % Normal 1.7-12.0 [facility] Comment on above: Performed By: #### C OMID ####[facility] Vlqtremygx5829 [place], [place] [address]Tt. Bhavani Barragan MPV 9.7 fL Normal 9.5-13.5 [facility] Comment on above: Performed By: #### C OMID ####[facility] Upnezfxrgj2820 [place], [place] [address]Sj. Bhavani Barragan MYELOCYTE # Normal [facility] Comment on above: Performed By: #### C OMID ####[facility] Psijgqiykt3252 [place], [place] [address]Fg. Bhavani Barragan MYELOCYTE % Normal [facility] Comment on above: Performed By: #### C OMID ####[facility] Jxxygmhatc9803 [place] [address]Dr. Bhavani Barragan NRBC Normal [facility] Comment on above: Performed By: #### C OMID ####[facility] Jwfjsretyl5913 [place] [address]Dr. Bhavani Barragan PLT 362 103/ul Normal 150-450 [facility] Comment on above: Performed By: #### C OMID ####[facility] Xfvfexqaxy1337 [place] [address]Dr. Bhavani Barragan RBC 4.25 106/ul Normal 4.20-5.40 [facility] Comment on above: Performed By: #### C OMID ####[facility] Cjxoavlkyp7623 [place] [address]Dr. Bhavani Barragan RDW 17.2 % Critically high 11.0-15.0 The [facility] Comment on above: Performed By: #### C OMID ####[facility] Zulnclvdpe5412 [place], [place] [address]Oc. Bhavani Barragan SEG # 28.12 103/ul Critically high 1.40-6.50 [facility] Comment on above: Performed By: #### C OMID ####[facility] Mmqsswvtuc9168 [place] [address]Dr. Bhavani Barragan SEG % 91.0 % Critically high 43.0-75.0 [facility] Comment on above: Performed By: #### C BCMAN ####[facility] Jokwacvcpc8022 [place] [address]Dr. Bhavani Barragan WBC 30.9 103/ul Critically high 4.0-11.0 [facility] Comment on above: Result Comment: repe ated Performed By: #### C BCMAN ####[facility] Egeovvutyx4318 [place] [address]Dr. Bhavani Barragan CT ABD/PELV W CONon 03-29-[address] ABD/PELV W CON Normal [facility] POINT OF CARE GLUCOSEon 03-18 Glucose [Mass/Vol] 102 mg/dL Normal 74-106 [facility] Comment on above: Performed By: #### P OCGLUC ####[facility] Eaambfttgm0500 [place] [address]Dr. Bhavani Barragan Glucose [Mass/Vol] 100 mg/dL Normal 74-106 [facility] Comment on above: Performed By: #### P OCGLUC ####[facility] Toemiezxkr9527 [place] [address]Dr. Bhavani Barragan Glucose [Mass/Vol] 132 mg/dL Critically high 74-106 [facility] Comment on above: Performed By: #### P OCGLUC ####[facility] Nyrnzzsiux6043 [place] [address]Dr. Bhavani Barragan Glucose [Mass/Vol] 130 mg/dL Critically high 74-106 [facility] Comment on above: Performed By: #### P OCGLUC ####[facility] Tivkwxhwfm3476 [place] [address]Dr. Bhavani Laurel PROF 14(COMP METB)on 022 Albumin [Mass/Vol] 2.1 g/dL Critically low 3.4-5.0 [facility] Comment on above: Performed By: #### C MP ####[facility] Vwujzwxymh1202 [place] [address]Dr. Bhavani Barragan Albumin/Globulin [Mass ratio] 0.6 {ratio} Normal [facility] Comment on above: Performed By: #### C MP ####[facility] Gfishfkhmr5059 [place] [address]Dr. Bhavani Barragan ALP [Catalytic activity/Vol] 277 U/L Critically high 46-116 [facility] Comment on above: Performed By: #### C MP ####[facility] Sicuzaeubx4855 [place] [address]Dr. Bhavani Barragan ALT [Catalytic activity/Vol] 90 U/L Critically high 14-59 [facility] Comment on above: Performed By: #### C MP ####[facility] Gifszxmlzt3688 [place] [address]Dr. Bhavani Barragan Anion gap [Moles/Vol] 13.1 mmol/L Normal [facility] Comment on above: Performed By: #### C MP ####[facility] Hpdfcspnuu6699 [place] [address]Dr. Bhavani Barragan AST [Catalytic activity/Vol] 56 U/L Critically high 15-37 [facility] Comment on above: Performed By: #### C MP ####[facility] [address]lnrffojl[address] [place], [place] [address]Dr. Bhavani Barragan Bilirubin [Mass/Vol] 4.1 mg/dL Critically high 0.2-1.0 [facility] Comment on above: Performed By: #### C MP ####[facility] Imqkvfeows[address] [place], [place] [address]Dr. Bhavani Barragan Calcium [Mass/Vol] 7.9 mg/dL Critically low 8.5-10.1 [facility] Comment on above: Performed By: #### C MP ####[facility] Ctmkbiryvn9703 [place] [address]Dr. Bhavani Barragan Chloride [Moles/Vol] 103 mmol/L Normal 98-107 [facility] Comment on above: Performed By: #### C MP ####[facility] Bpuearekii0806 [place] [address]Dr. Bhavani Barragan CO2 [Moles/Vol] 25.9 mmol/L Normal 21.0-32.0 The [facility] Comment on above: Performed By: #### C MP ####[facility] Utajbyxucc7440 [place] [address]Dr. Bhavani Barragan Creatinine [Mass/Vol] 1.32 mg/dL Critically high 0.55-1.02 [facility] Comment on above: Performed By: #### C MP ####[facility] Gsupllovwr8202 [place] [address]Dr. Bhavani Barragan EGFR-AF ALBANIAN 47 mL/min/1.73m2 Critically low >=60 [facility] Comment on above: Performed By: #### C MP ####[facility] Tbtexeujkf9799 [place] [address]Dr. Bhavani Barragan EGFR-NON AF ALBANIAN 39 mL/min/1.73m2 Critically low >=60 [facility] Comment on above: Performed By: #### C MP ####[facility] Sipipohcdd8294 [place] [address]Dr. Bhavani Barragan Globulin (S) [Mass/Vol] 3.7 g/dL Normal [facility] Comment on above: Performed By: #### C MP ####[facility] Xymbodxubj4754 [place] [address]Dr. Bhavani Barragan Glucose [Mass/Vol] 133 mg/dL Critically high 74-106 [facility] Comment on above: Performed By: #### C MP ####[facility] Fkipudvhbg9832 [place] [address]Dr. Bhavani Barragan Potassium [Moles/Vol] 4.0 mmol/L Normal 3.5-5.1 [facility] Comment on above: Performed By: #### C MP ####[facility] Aspzhsftfo0286 [place] [address]Dr. Bhavani Barragan Protein [Mass/Vol] 5.8 g/dL Critically low 6.4-8.2 [facility] Comment on above: Performed By: #### C MP ####[facility] Dzqkwowhlo4485 [place] [address]Dr. Bhavani Barragan Sodium [Moles/Vol] 138 mmol/L Normal 136-145 [facility] Comment on above: Performed By: #### C MP ####[facility] [address]mbbis[address] [place] [address]Dr. Bhavani Barragan Urea nitrogen [Mass/Vol] 19.0 mg/dL Critically high 7.0-18.0 [facility] Comment on above: Performed By: #### C MP ####[facility] Pjpfbobxvk[address] [place] [address]Dr. Bhavani Barragan Urea nitrogen/Creatinine [Mass ratio] 14.4 mg/mg Normal [facility] Comment on above: Performed By: #### C MP ####[facility] Hsxinebedd[address] [place], [place] [address]Dr. Bhavani Barragan PROTIMEon 03-29-2022 INR Coag (PPP) [Relative time] 1.33 {INR} Normal [facility] Comment on above: Performed By: #### P T, PTT ####[facility] Yfzhyfdaru8[address] [place], [place] [address]Dr. Jayceeroxi Barragan INR GUIDELINES SEE BELOW Normal The [facility] Comment on above: Result Comment: WALKER RED INR: 2.0 - 3.0 CONDITIONS NOT LISTED BELOW 2.5 - 3.5 FOR PROSTHETIC HEART VALVE REPLACEMENT 2.5 - 3.5 RECURRENT THROMBOSIS Performed By: #### P T, PTT ####[facility] Czcdjhjtkd[address] [place], [place] [address]Dr. Bhavani Barragan PT Coag (PPP) [Time] 14.1 s Critically high 9.0-11.6 [facility] Comment on above: Performed By: #### P T, PTT ####[facility] Wsjuqixrfu[address] [place], [place] [address]Dr. Bhavani Barragan PTTon 03-29-2022 aPTT Coag (Bld) [Time] 36.0 s Normal 22.3-36.2 [facility] Comment on above: Performed By: #### P T, PTT ####[facility] Swogwqeowc[address] [place], [place] [address]Dr. Bhavani Barragan AMMONIAon 03-28-2022 Ammonia (P) [Moles/Vol] 22 umol/L Normal -32 [facility] Comment on above: Performed By: #### A MM ####[facility] Ydamxaxfxn[address] [place] [address]Dr. Bhavani Barragan CBC W MANUAL DIFFon 03-28-20 22 ANISOCYTOSIS 2+ Normal [facility] Comment on above: Performed By: #### C BCMAN ####[facility] Ivmsmetzio[address] [place] [address]Dr. Bhavani Barragan ATYPICAL LYMPH # Normal The [facility] Comment on above: Performed By: #### C BCMAN ####[facility] Xqctmfcell7[address] [place] [address]Dr. Bhavani Barragan ATYPICAL LYMPH % Normal The [facility] Comment on above: Performed By: #### C BCMAN ####[facility] Jxywkqfuri32[address] [place], [place] [address]Dr. Bhavani Barragan BAND # 0.8 103/ul Critically high 0.0-0.3 The [facility] Comment on above: Performed By: #### C BCMAN ####[facility] Nxhaybakeu[address] [place], [place] [address]Dr. Bhavani Barragan BAND % 3 % Normal 0-5 [facility] Comment on above: Performed By: #### C BCJERSON ####[facility] Znfrctrluw[address] [place], [place] [address]Dr. Bhavani Barragan BASOM # 0.00 103/ul Normal 0.00-0.10 [facility] Comment on above: Performed By: #### C BCMAN ####[facility] Kwdkmnypug[address] [place], [place] [address]Dr. Bhavani Barragan BASOM % 0.0 % Critically low 0.2-2.0 The [facility] Comment on above: Performed By: #### C BCMAN ####[facility] Rtszlsojyw[address] [place], [place] [address]Dr. Bhavani Barragan BLAST # Normal [facility] Comment on above: Performed By: #### C BCMAN ####[facility] Kwmeohqqzc41[address] [place], [place] [address]Dr. Bhavani Barragan BLAST % Normal [facility] Comment on above: Performed By: #### C BCMAN ####[facility] Nxcaohwyqu8865 [place], [place] [address]Ag. Bhavani Barragan CORRECTED WBC Normal 4.0-11.[address] [facility] Comment on above: Performed By: #### C OMID ####[facility] [address]xmjqywbhc[address] [place] [address]Dr. Bhavani Barragan EOS # 0.00 103/ul Normal 0.00-0.70 [facility] Comment on above: Performed By: #### C OMID ####[facility] Gshszeooet340[address] [place] [address]Dr. Bhavani Barragan EOS% 0.0 % Critically low 0.9-7.0 The [facility] Comment on above: Performed By: #### C OMID ####[facility] Yjsgzssaqi112[address] [place] [address]Dr. Bhavani Barragan HCT 38.9 % Normal 36.0-48.0 [facility] Comment on above: Performed By: #### C OMID ####[facility] Ekwbgsuayo10[address] [place] [address]Dr. Bhavani Barragan HGB 11.9 g/dl Critically low 12.0-16.0 The [facility] Comment on above: Performed By: #### C OMID ####[facility] Mculogfskb89[address] [place] [address]Dr. Bhavani Barragan LYMPHM # 0.78 103/ul Critically low 1.20-3.80 The [facility] Comment on above: Performed By: #### C OMID ####[facility] Mdhuwbjadd[address] [place] [address]Dr. Bhavani Barragan LYMPHM% 3.0 % Critically low 20.5-60.0 The [facility] Comment on above: Performed By: #### C OMID ####[facility] Fjmrrgkxex3[address] [place] [address]Dr. Bhavani Barragan MCH 29.8 pg Normal 26.7-34.0 [facility] Comment on above: Performed By: #### C OMID ####[facility] Uinkgudhwn[address] [place], [place] [address]Dr. Bhavani Barragan MCHC 30.6 g/dl Normal 29.9-35.2 [facility] Comment on above: Performed By: #### C OMID ####[facility] Cqrixawavr[address] [place] [address]Dr. Bhavani Barragan MCV 97.3 fL Normal 81.0-99.0 The [facility] Comment on above: Performed By: #### C OMID ####[facility] Tgwzqmkhvl05[address] [place] [address]Dr. Bhavani Barragan METAMYELOCYTE # Normal The [facility] Comment on above: Performed By: #### C OMID ####[facility] Jvunwttvdv9[address] [place] [address]Dr. Bhavani Barragan METAMYELOCYTE % Normal The [facility] Comment on above: Performed By: #### C OMID ####[facility] Uanonfqrld49[address] [place] [address]Dr. Bhavani Barragan MONOM# 0.78 103/ul Normal 0.30-0.80 The [facility] Comment on above: Performed By: #### C OMID ####[facility] Aqapsnplev87[address] [place] [address]Dr. Bhavani Barragan MONOM% 3.0 % Normal 1.7-12.0 [facility] Comment on above: Performed By: #### C OMID ####[facility] Buvcwdpsxk9[address] [place] [address]Dr. Bhavani Barragan MPV 10.6 fL Normal 9.5-13.5 [facility] Comment on above: Performed By: #### C OMID ####[facility] Hqjbbypcdx86[address] [place] [address]Dr. Bhavani Barragan MYELOCYTE # Normal [facility] Comment on above: Performed By: #### C OMID ####[facility] Cygehnllyq4[address] [place] [address]Dr. Bhavani Barragan MYELOCYTE % Normal [facility] Comment on above: Performed By: #### C OMID ####[facility] Lajfnybzmi0[address] [place], [place] [address]Dr. Bhavani Barragan NRBC Normal The [facility] Comment on above: Performed By: #### C OMID ####[facility] Blddtioxaf7359 [place], [place] [address]Vb. Bhavani Barragan PLT 402 103/ul Normal 150-450 The [facility] Comment on above: Performed By: #### C OMID ####[facility] Kxmrgsqnjk8364 [place], [place] [address]DfLydia Bhavani Laurel RBC 4.00 106/ul Critically low 4.20-5.40 [facility] Comment on above: Performed By: #### C OMID ####[facility] Rhckwcxyzl0184 [place], [place] [address]Lv. Bhavani Laurel RDW 16.7 % Critically high 11.0-15.0 [facility] Comment on above: Performed By: #### C OMID ####[facility] Oygtklwsqa1626 [place], [place] [address]JyLydia Barragan SEG # 23.66 103/ul Critically high 1.40-6.50 [facility] Comment on above: Performed By: #### C OMID ####[facility] Ljywhsvmps4781 [place], [place] [address]Fa. Bhavani Barragan SEG % 91.0 % Critically high 43.0-75.0 [facility] Comment on above: Performed By: #### C OMID ####[facility] Ufuhmmsisl2326 [place], [place] [address]WsLydia Bhavani Laurel WBC 26.0 103/ul Critically high 4.0-11.0 [facility] Comment on above: Performed By: #### C OMID ####[facility] Mbpmlrxzua1545 [place], [place] [address]RrLydia Barragan PROF 14(COMP METB)on 022 Albumin [Mass/Vol] 2.1 g/dL Critically low 3.4-5.0 [facility] Comment on above: Performed By: #### C MP ####[facility] Xejzlmqpzp2340 [place], [place] [address]BqLydia Barragan Albumin/Globulin [Mass ratio] 0.6 {ratio} Normal The [facility] Comment on above: Performed By: #### C MP ####[facility] Vtgczsqoir[address] [place] [address]Dr. Bhavani Barragan ALP [Catalytic activity/Vol] 235 U/L Critically high 46-116 The [facility] Comment on above: Performed By: #### C MP ####[facility] Nbveseqezi96[address] [place] [address]Dr. Bhavani Laurel ALT [Catalytic activity/Vol] 112 U/L Critically high 14-59 The [facility] Comment on above: Performed By: #### C MP ####[facility] Dwkztfqtaj95[address] [place] [address]Dr. Bhavani Barragan Anion gap [Moles/Vol] 12.3 mmol/L Normal The [facility] Comment on above: Performed By: #### C MP ####[facility] Lbqisafhon70[address] [place] [address]Dr. Bhavani Barragan AST [Catalytic activity/Vol] 57 U/L Critically high 15-37 [facility] Comment on above: Performed By: #### C MP ####[facility] Mqnhgqxdkd3603 [place] [address]Dr. Jayceeroxi Laurel Bilirubin [Mass/Vol] 1.6 mg/dL Critically high 0.2-1.0 [facility] Comment on above: Performed By: #### C MP ####[facility] Djojpmouqs035[address] [place] [address]Dr. Bhavani Barragan Calcium [Mass/Vol] 7.6 mg/dL Critically low 8.5-10.1 [facility] Comment on above: Performed By: #### C MP ####[facility] Inlgxdfskj57[address] [place] [address]Dr. Bhavani Barragan Chloride [Moles/Vol] 104 mmol/L Normal 98-107 [facility] Comment on above: Performed By: #### C MP ####[facility] Wirgmfcrde1454 [place] [address]Dr. Bhavani Barragan CO2 [Moles/Vol] 25.5 mmol/L Normal 21.0-32.0 [facility] Comment on above: Performed By: #### C MP ####[facility] Sfmvtsswqo[address] [place] [address]Dr. Bhavani Barragan Creatinine [Mass/Vol] 1.28 mg/dL Critically high 0.55-1.02 [facility] Comment on above: Performed By: #### C MP ####[facility] Pnzjbwpxgc4[address] [place] [address]Dr. Bhavani Barragan EGFR-AF ALBANIAN 48 mL/min/1.73m2 Critically low >=60 The [facility] Comment on above: Performed By: #### C MP ####[facility] Gkprmmdqox[address] [place] [address]Dr. Bhavani Barragan EGFR-NON AF ALBANIAN 40 mL/min/1.73m2 Critically low >=60 The [facility] Comment on above: Performed By: #### C MP ####[facility] Rgkvrzkhji9[address] [place] [address]Dr. Bhavani Barragan Globulin (S) [Mass/Vol] 3.7 g/dL Normal The [facility] Comment on above: Performed By: #### C MP ####[facility] Dqlmkgxwmt5777 [place] [address]Dr. Bhavani Barragan Glucose [Mass/Vol] 69 mg/dL Critically low 74-106 [facility] Comment on above: Performed By: #### C MP ####[facility] Bcivycqeej1624 [place] [address]Dr. Bhavani Barragan Potassium [Moles/Vol] 3.8 mmol/L Normal 3.5-5.1 [facility] Comment on above: Performed By: #### C MP ####[facility] Xaqhazsbmk2137 [place] [address]Dr. Bhavain Barragan Protein [Mass/Vol] 5.8 g/dL Critically low 6.4-8.2 Th [facility] Comment on above: Performed By: #### C MP ####[facility] Tfwpwodeqj3120 [place] [address]Dr. Bhavani Barragan Sodium [Moles/Vol] 138 mmol/L Normal 136-145 [facility] Comment on above: Performed By: #### C MP ####[facility] Covoblvemv2490 [place] [address]Dr. Bhavani Barragan Urea nitrogen [Mass/Vol] 18.0 mg/dL Normal 7.0-18.0 [facility] Comment on above: Performed By: #### C MP ####[facility] Cxmuzihsng367[address] [place], [place] [address]Dr. Bhavani Barragan Urea nitrogen/Creatinine [Mass ratio] 14.1 mg/mg Normal The [facility] Comment on above: Performed By: #### C MP ####[facility] Yftzgbhefn[address] [place], [place] [address]Dr. Bhavani Barragan PROTIMEon 03-28-2022 INR Coag (PPP) [Relative time] 1.38 {INR} Normal [facility] Comment on above: Performed By: #### P T, PTT ####[facility] Kqknltdppc[address] [place], [place] [address]Dr. Bhavani Barragan INR GUIDELINES SEE BELOW Normal The [facility] Comment on above: Result Comment: WALKER RED INR: 2.0 - 3.0 CONDITIONS NOT LISTED BELOW 2.5 - 3.5 FOR PROSTHETIC HEART VALVE REPLACEMENT 2.5 - 3.5 RECURRENT THROMBOSIS Performed By: #### P T, PTT ####[facility] Imuoqjzmea[address] [place], [place] [address]Dr. Bhavani Barragan PT Coag (PPP) [Time] 14.6 s Critically high 9.0-11.6 [facility] Comment on above: Performed By: #### P T, PTT ####[facility] Benfhissgl25[address] [place], [place] [address]Dr. Bhavani Barragan PTTon 03-28-2022 aPTT Coag (Bld) [Time] 36.6 s Critically high 22.3-36.2 [facility] Comment on above: Performed By: #### P T, PTT ####[facility] Exdiachcnz635[address] [place], [place] [address]Dr. Bhavani Barragan RESPIRATORY PANEL PLUSon Adenovirus Not detected Normal NOT DETECTED [facility] Comment on above: Performed By: #### R SPLUS ####[facility] Tyqnipbxut9373 [place] [address]Dr. Bhavani Barragan B. Parapertusis Not detected Normal NOT DETECTED The [facility] Comment on above: Performed By: #### R SPLUS ####[facility] Vomebqjsht5238 [place] [address]Dr. Bhavani Barragan B. Pertussis Not detected Normal NOT DETECTED The [facility] Comment on above: Performed By: #### R SPLUS ####[facility] Cyyqsedlgs[address] [place], [place] [address]Dr. Bhavani Barragan Chlamydia Pneumoniae Not detected Normal NOT DETECTED [facility] Comment on above: Performed By: #### R SPLUS ####[facility] Cwwdmbrbuj72[address] [place], [place] [address]Dr. Bhavani Barragan Coronavirus 229E Not detected Normal NOT DETECTED [facility] Comment on above: Performed By: #### R SPLUS ####[facility] Clfgsayrba77[address] [place], [place] [address]Dr. roxi Barragan Coronavirus HKU1 Not detected Normal NOT DETECTED [facility] Comment on above: Performed By: #### R SPLUS ####[facility] Oeakmtdnkz812[address] [place], [place] [address]Dr. Bhavani Barragan Coronavirus NL63 Not detected Normal NOT DETECTED [facility] Comment on above: Performed By: #### R SPLUS ####[facility] Sdzxckgbdq99[address] [place], [place] [address]Dr. Bhavani Barragan Coronavirus OC43 Not detected Normal NOT DETECTED [facility] Comment on above: Performed By: #### R SPLUS ####[facility] Szildhazmf[address] [place], [place] [address]Dr. Bhavani Barragan Influenza A H1 2009 Not detected Normal NOT DETECTED [facility] Comment on above: Performed By: #### R SPLUS ####[facility] Mjmnazrahi065[address] [place], [place] [address]Dr. Bhavani Barragan Influenza A H3 Not detected Normal NOT DETECTED The [facility] Comment on above: Performed By: #### R SPLUS ####[facility] Otccjplnfu9[address] [place] [address]Dr. Bhavani Barragan Influenza B Not detected Normal NOT DETECTED The [facility] Comment on above: Performed By: #### R SPLUS ####[facility] Wccwzhcbwd8116 [place] [address]Dr. Bhavani Barragan Metapneumovirus Not detected Normal NOT DETECTED The [facility] Comment on above: Performed By: #### R SPLUS ####[facility] Rzjomhzpwo4021 [place] [address]Dr. Jayceeroxi Barragan Mycoplas. Pneumoniae Not detected Normal NOT DETECTED [facility] Comment on above: Performed By: #### R SPLUS ####[facility] Hkfxrhcixn56[address] [place], [place] [address]Dr. Bhavani Barragan Parainfluenza 1 Not detected Normal NOT DETECTED The [facility] Comment on above: Performed By: #### R SPLUS ####[facility] Dcrtxkvmgw05[address] [place], [place] [address]Dr. Bhavani Barragan Parainfluenza 2 Not detected Normal NOT DETECTED [facility] Comment on above: Performed By: #### R SPLUS ####[facility] Jjdkfgurxc360[address] [place], [place] [address]Dr. Bhavani Barragan Parainfluenza 3 Not detected Normal NOT DETECTED The [facility] Comment on above: Performed By: #### R SPLUS ####[facility] Tkrfstmhro876[address] [place], [place] [address]Dr. Jayceeroxi Barragan Parainfluenza 4 Not detected Normal NOT DETECTED The [facility] Comment on above: Performed By: #### R SPLUS ####[facility] Xsribyvccs89[address] [place], [place] [address]Dr. Bhavani Barragan Rhino/Enterovirus Not detected Normal NOT DETECTED [facility] Comment on above: Performed By: #### R SPLUS ####[facility] Qnumlblnro232[address] [place], [place] [address]Dr. Bhavani Barragan RP2 Header 1 RESPIRATORY PANEL: VIRUSES Normal [facility] Comment on above: Performed By: #### R SPLUS ####[facility] Difwaqveqn8[address] [place] [address]Dr. Bhavani Barragan RP2 Header 2 RESPIRATORY PANEL: BACTERIA Normal [facility] Comment on above: Performed By: #### R SPLUS ####[facility] Yqfsiuafxp184[address] [place], [place] [address]Dr. Bhavani Barragan RSV Not detected Normal NOT DETECTED [facility] Comment on above: Performed By: #### R SPLUS ####[facility] Fhhwhwkwqw327[address] [place], [place] [address]Dr. Bhavani Barragan SARS-CoV-2 (COVID-19) RNA MATTHEW+probe Ql (Unsp spec) Not detected Normal NOT DETECTED [facility] Comment on above: Performed By: #### R SPLUS ####[facility] Xhwoxpaqvu25[address] [place], [place] [address]Dr. Bhavani Barragan AMMONIAon 03-27-2022 Ammonia (P) [Moles/Vol] 22 umol/L Normal 11-32 [facility] Comment on above: Performed By: #### A MM ####[facility] Cbnaixghdi[address] [place], [place] [address]Dr. Bhavani Barragan BLOOD GASES BTYon 03-27-2022 02 MODE NASAL CANNULA Normal The [facility] Comment on above: Performed By: #### A BG ####[facility] Vouvvltgjn[address] [place], [place] [address]Dr. Bhavani Barragan ALLENS TEST Positive Normal [facility] Comment on above: Performed By: #### A BG ####[facility] Bnokfbhecw39[address] [place], [place] [address]Dr. Bhavani Barragan Base excess Calc (Bld) [Moles/Vol] 1.4 mmol/L Normal -2.0-2.0 [facility] Comment on above: Performed By: #### A BG ####[facility] Zeelpwxsyp649[address] [place], [place] [address]Dr. Bhavani Barragan BIPAP PRESSURE Normal [facility] Comment on above: Performed By: #### A BG ####[facility] Kqfypcpxll435[address] [place], [place] [address]Dr. Bhavani Barragan CO2 [Moles/Vol] 50.8 mmol/L Critically high 23.0-28.0 [facility] Comment on above: Performed By: #### A BG ####[facility] Lolayqvzuy264[address] [place] [address]Dr. Bhavani Barragan CPAP Normal [facility] Comment on above: Performed By: #### A BG ####[facility] Kejfabpdpd3442 [place] [address]Dr. Bhavani Barragan FIO2 Normal [facility] Comment on above: Performed By: #### A BG ####[facility] Sivuealzgf[address] [place], [place] [address]Dr. Bhavani Barragan HCO3 (Bld) [Moles/Vol] 25.6 mmol/L Normal 22.0-26.0 [facility] Comment on above: Performed By: #### A BG ####[facility] Uukatlaslk08[address] [place], [place] [address]Dr. Bhavani Barragan LPM 5 Normal [facility] Comment on above: Performed By: #### A BG ####[facility] Gacnvekbfs232[address] [place], [place] [address]Dr. Bhavani Barragan MINUTE VOLUME Normal The [facility] Comment on above: Performed By: #### A BG ####[facility] Bujiltspox6[address] [place], [place] [address]Dr. Bhavani Barragan Oxygen (Bld) [Partial pressure] 56.6 mm[Hg] Critically low 80.0-100.0 [facility] Comment on above: Performed By: #### A BG ####[facility] Wfhesmutss[address] [place], [place] [address]Dr. Bhavani Barragan Oxygen saturation in Blood 91.3 % Critically low 95.0-100.0 [facility] Comment on above: Performed By: #### A BG ####[facility] Harcbdffso[address] [place], [place] [address]Dr. Bhavani Barragan PCO2 36.1 mmHg Normal 35.0-45.0 [facility] Comment on above: Performed By: #### A BG ####[facility] Ibjvqjadpg15[address] [place] [address]Dr. Bhavani Barragan PEEP Normal The [facility] Comment on above: Performed By: #### A BG ####[facility] Besibpemjv0[address] [place] [address]Dr. Bhavani Barragan pH (Bld) 7.454 [pH] Critically high 7.350-7.450 [facility] Comment on above: Performed By: #### A BG ####[facility] Zcuabodoal79[address] [place] [address]Dr. Bhavani Barragan PIP [facility] Comment on above: Performed By: #### A BG ####[facility] Wbzrymkhkc[address] [place], [place] [address]Dr. Bhavani Barragan PS [facility] Comment on above: Performed By: #### A BG ####[facility] Brqmggtovp[address] [place], [place] [address]Dr. Bhavani Barragan PUNCTURE SITE LR Normal The [facility] Comment on above: Performed By: #### A BG ####[facility] Jghkiiinvv[address] [place], [place] [address]Dr. Bhavani Barragan RATE [facility] Comment on above: Performed By: #### A BG ####[facility] Lsemkfkywh[address] [place], [place] [address]Dr. Bhavani Barragan VENT MODE [facility] Comment on above: Performed By: #### A BG ####[facility] Mrjlzkbevf23[address] [place] [address]Dr. Bhavani Barragan [facility] Comment on above: Performed By: #### A BG ####[facility] Uejpazgzip38[address] [place] [address]Dr. Bhavani Barragan CBC W MANUAL DIFFon 03-27-20 22 ANIS[address]YTOSIS 2+ [facility] Comment on above: Performed By: #### C BCMAN ####[facility] [facility] [address]scbv[address] [place] [address]Dr. Bhavani Barragan ATYPICAL LYMPH # Normal [facility] Comment on above: Performed By: #### C BCJERSON ####[facility] Umjsvunbzf[address] [place] [phone]. Bhavani Barragan ATYPICAL LYMPH % Normal The [facility] Comment on above: Performed By: #### C BCMAN ####[facility] Cklbkbtirg4087 [place] [id number]. Bhavani Barragan BAND # 1.5 103/ul Critically high 0.0-0.3 The [facility] Comment on above: Performed By: #### C BCMAN ####[facility] Nobemafgfg[address] [place] [address]Dr. Jayceelan Barragan BAND % 5 % Normal 0-5 [facility] Comment on above: Performed By: #### C OMID ####[facility] Jdbfpsdozw9[address] [place] [address]Dr. Bhavani Barragan BASOM # 0.00 103/ul Normal 0.00-0.10 [facility] Comment on above: Performed By: #### C OMID ####[facility] Augmxhihhq16[address] [place] [address]Dr. Bhavani Barragan BASOM % 0.0 % Critically low 0.2-2.0 The [facility] Comment on above: Performed By: #### C OMID ####[facility] Qnfhzifyoe[address] [place], [place] [address]Dr. Bhavani Barragan BLAST # Normal [facility] Comment on above: Performed By: #### C OMID ####[facility] Wktxludzxp3[address] [place] [address]Dr. Bhavani Barragan BLAST % Normal [facility] Comment on above: Performed By: #### C BCJERSON ####[facility] Uumjtsivqp[address] [place] [address]Dr. Bhavani Barragan CORRECTED WBC Normal 4.0-11.[address] [facility] Comment on above: Performed By: #### C OMID ####[facility] Gqeghdgqip[address] [place] [address]Dr. Bhavani Barragan EOS # 0.00 103/ul Normal 0.00-0.70 [facility] Comment on above: Performed By: #### C BCJERSON ####[facility] Oewqmdcznv7361 [place], [place] [address]Ge. Bhavani Barragan EOS% 0.0 % Critically low 0.9-7.0 The [facility] Comment on above: Performed By: #### Jany ANNE ####[facility] Xcfwusobee79[address] [place] [address]Dr. Bhavani Barragan HCT 41.4 % Normal 36.0-48.0 [facility] Comment on above: Performed By: #### Jany ANNE ####[facility] Znbwaboexk5389 [place] [address]Dr. Bhavani Barragan HGB 13.0 g/dl Normal 12.0-16.0 [facility] Comment on above: Performed By: #### Jany ANNE ####[facility] Thfqyxkiog8716 [place] [address]Dr. Bhavani Barragan LYMPHM # 0.60 103/ul Critically low 1.20-3.80 The [facility] Comment on above: Performed By: #### Jany ANNE ####[facility] Ahswwquoma8580 [place] [address]Dr. Bhavani Barragan LYMPHM% 2.0 % Critically low 20.5-60.0 The [facility] Comment on above: Performed By: #### Jany ANNE ####[facility] Itolwgvesg6727 [place] [address]Dr. Bhavani Barragan MCH 30.1 pg Normal 26.7-34.0 The [facility] Comment on above: Performed By: #### Jany ANNE ####[facility] Ybgrxwzdwb2726 [place] [address]Dr. Bhavani Barragan MCHC 31.4 g/dl Normal 29.9-35.2 [facility] Comment on above: Performed By: #### Jany ANNE ####[facility] Ohfvaokyvo4828 [place] [address]Dr. Bhavani Barragan MCV 95.8 fL Normal 81.0-99.0 [facility] Comment on above: Performed By: #### Jany ANNE ####[facility] Dkthirlgmj0511 [place] [address]Dr. Bhavani Barragan METAMYELOCYTE # Normal The [facility] Comment on above: Performed By: #### C OMID ####[facility] Lxdtastyoi8027 [place], [place] [address]Xn. Bhavani Barragan METAMYELOCYTE % Normal The [facility] Comment on above: Performed By: #### C OMID ####[facility] Zmxvskcybt0124 [place] [address]Dr. Bhavani Barragan MONOM# 0.91 103/ul Critically high 0.30-0.80 [facility] Comment on above: Performed By: #### C OMID ####[facility] Fucuaduyiy3808 [place] [address]Dr. Bhavani Barragan MONOM% 3.0 % Normal 1.7-12.0 The [facility] Comment on above: Performed By: #### C OMID ####[facility] Gwvssnhipa7351 [place] [address]Dr. Bhavani Barragan MPV 10.4 fL Normal 9.5-13.5 The [facility] Comment on above: Performed By: #### C OMID ####[facility] Hoorzukzrj6274 [place] [address]Dr. Bhavani Barragan MYELOCYTE # Normal [facility] Comment on above: Performed By: #### C OMID ####[facility] Hjrnkxvqcx3508 [place] [address]Dr. Bhavani Barragan MYELOCYTE % Normal [facility] Comment on above: Performed By: #### C OMID ####[facility] Quigiroqmr9434 [place] [address]Dr. Bhavani Barragan NRBC Normal [facility] Comment on above: Performed By: #### C OMID ####[facility] Xjbsnbgebw6017 [place] [address]Dr. Bhavani Barragan PLT 431 103/ul Normal 150-450 [facility] Comment on above: Performed By: #### C OMID ####[facility] Evzynjebpl5159 [place] [address]Dr. Jayceeroxi Laurel RBC 4.32 106/ul Normal 4.20-5.40 The [facility] Comment on above: Performed By: #### C BCMAN ####[facility] Vaijlvhzxt7953 [place] [address]Dr. Bhavani Barragan RDW 16.4 % Critically high 11.0-15.0 [facility] Comment on above: Performed By: #### C BCMAN ####[facility] Yeyvlojggw4933 [place] [address]Dr. Bhavani Barragan SEG # 27.18 103/ul Critically high 1.40-6.50 [facility] Comment on above: Performed By: #### C BCMAN ####[facility] Brlclroaub0838 [place] [address]Dr. Bhavani Barragan SEG % 90.0 % Critically high 43.0-75.0 [facility] Comment on above: Performed By: #### C BCMAN ####[facility] Lchqihujfn9844 [place] [address]Dr. Bhavani Barragan WBC 30.2 103/ul Critically high 4.0-11.0 [facility] Comment on above: Performed By: #### C BCMAN ####[facility] Nrhsqzmtaq6586 [place] [address]Dr. Bhavani Barragan CTA CHEST WO W CONon 03-27- 022 CTA CHEST WO W CON Normal [facility] POINT OF CARE GLUCOSEon 05 0 Glucose [Mass/Vol] 94 mg/dL Normal 74-106 [facility] Comment on above: Performed By: #### P OCGLUC ####[facility] Eovhetxily9959 [place] [address]Dr. Bhavani Barragan Glucose [Mass/Vol] 131 mg/dL Critically high 74-106 [facility] Comment on above: Performed By: #### P OCGLUC ####[facility] Yivrznftqi0348 [place] [address]Dr. Bhavani Barragan Glucose [Mass/Vol] 134 mg/dL Critically high 74-106 [facility] Comment on above: Performed By: #### P OCGLUC ####[facility] Yseczmdzod5205 [place] [address]Dr. Bhavani Barragan PROF 14(COMP METB)on 022 Albumin [Mass/Vol] 2.4 g/dL Critically low 3.4-5.0 [facility] Comment on above: Performed By: #### C MP ####[facility] Kexpfldrpl4799 [place] [address]Dr. Bhavani Barragan Albumin/Globulin [Mass ratio] 0.6 {ratio} Normal [facility] Comment on above: Performed By: #### C MP ####[facility] Giqberxxng5561 [place] [address]Dr. Bhavani Barragan ALP [Catalytic activity/Vol] 306 U/L Critically high 46-116 [facility] Comment on above: Performed By: #### C MP ####[facility] Beiixzkdjc2384 [place] [address]Dr. Bhavani Barragan ALT [Catalytic activity/Vol] 152 U/L Critically high 14-59 [facility] Comment on above: Performed By: #### C MP ####[facility] Xsokicpzrr[address] [place], [place] [address]Dr. Bhavani Barragan Anion gap [Moles/Vol] 8.1 mmol/L Normal [facility] Comment on above: Performed By: #### C MP ####[facility] Rhmkfyjglm[address] [place], [place] [address]Dr. Bhavani Barragan AST [Catalytic activity/Vol] 98 U/L Critically high 15-37 [facility] Comment on above: Performed By: #### C MP ####[facility] Wjngfbqqgt3812 [place] [address]Dr. Bhavani Barragan Bilirubin [Mass/Vol] 2.7 mg/dL Critically high 0.2-1.0 [facility] Comment on above: Performed By: #### C MP ####[facility] Jsoggioijh1640 [place] [address]Dr. Bhavani Barragan Calcium [Mass/Vol] 7.4 mg/dL Critically low 8.5-10.1 [facility] Comment on above: Performed By: #### C MP ####[facility] Dztddjmqty8413 [place] [phone]. Bhavani Barragan Chloride [Moles/Vol] 103 mmol/L Normal 98-107 [facility] Comment on above: Performed By: #### C MP ####[facility] Ludakxfndy6334 [place] [address]Dr. Bhavani Barragan CO2 [Moles/Vol] 24.7 mmol/L Normal 21.0-32.0 [facility] Comment on above: Performed By: #### C MP ####[facility] Bmmxzuofep9140 [place] [address]Dr. Bhavani Barragan Creatinine [Mass/Vol] 1.07 mg/dL Critically high 0.55-1.02 [facility] Comment on above: Performed By: #### C MP ####[facility] Azaxfkdqob[address] [place], [place] [address]Dr. Bhavani Laurel EGFR-AF ALBANIAN 60 mL/min/1.73m2 Normal >=60 Th [facility] Comment on above: Performed By: #### C MP ####[facility] Blwloddtzd[address] [place], [place] [address]Dr. Bhavani Laurel EGFR-NON AF ALBANIAN 49 mL/min/1.73m2 Critically low >=60 [facility] Comment on above: Performed By: #### C MP ####[facility] Mlnyluhkkp2700 [place] [address]Dr. Bhavani Laurel Globulin (S) [Mass/Vol] 3.8 g/dL Normal [facility] Comment on above: Performed By: #### C MP ####[facility] Mcbragpnwq8137 [place] [address]Dr. Bhavani Laurel Glucose [Mass/Vol] 140 mg/dL Critically high 74-106 T [facility] Comment on above: Performed By: #### C MP ####[facility] Fqdqosmvyq3024 [place] [address]Dr. Bhavani Laurel Potassium [Moles/Vol] 3.8 mmol/L Normal 3.5-5.1 [facility] Comment on above: Performed By: #### C MP ####[facility] Zamiirtpkv[address] [place], [place] [address]Dr. Bhavani Barragan Protein [Mass/Vol] 6.2 g/dL Critically low 6.4-8.2 Th [facility] Comment on above: Performed By: #### C MP ####[facility] Pmogvxqcbl[address] [place], [place] [address]Dr. Bhavani Barragan Sodium [Moles/Vol] 132 mmol/L Critically low 136-145 [facility] Comment on above: Performed By: #### C MP ####[facility] Wwuwrxumla[address] [place], [place] [address]Dr. Bhavani Barragan Urea nitrogen [Mass/Vol] 15.0 mg/dL Normal 7.0-18.0 [facility] Comment on above: Performed By: #### C MP ####[facility] Wnfdebnrjt[address] [place], [place] [address]Dr. Bhavani Barragan Urea nitrogen/Creatinine [Mass ratio] 14.0 mg/mg Normal [facility] Comment on above: Performed By: #### C MP ####[facility] Qiwahlgwfn[address] [place], [place] [address]Dr. Bhavani Barragan PROTIMEon 03-27-2022 INR Coag (PPP) [Relative time] 1.37 {INR} Normal [facility] Comment on above: Performed By: #### P T, PTT ####[facility] Kqgcyxgkfr[address] [place], [place] [address]Dr. Bhavani Barragan INR GUIDELINES SEE BELOW Normal [facility] Comment on above: Result Comment: WALKER RED INR: 2.0 - 3.0 CONDITIONS NOT LISTED BELOW 2.5 - 3.5 FOR PROSTHETIC HEART VALVE REPLACEMENT 2.5 - 3.5 RECURRENT THROMBOSIS Performed By: #### P T, PTT ####[facility] Aftrmdoxut6[address] [place], [place] [address]Dr. Bhavani Barragan PT Coag (PPP) [Time] 14.5 s Critically high 9.0-11.6 [facility] Comment on above: Performed By: #### P T, PTT ####[facility] [address]ntljypjal[address] [place], [place] [address]Dr. Bhavani Barragan PTTon 03-27-2022 aPTT Coag (Bld) [Time] 34.2 s Normal 22.3-36.2 [facility] Comment on above: Performed By: #### P T, PTT ####[facility] Qzqdqrwjha[address] [place], [place] [address]Dr. Bhavani Barragan XR ABD FLAT_UPon 03-27-2022 XR ABD FLAT_UP Normal [facility] XR CHEST 1 Von 03-27-2022 XR CHEST 1 V Normal [facility] AMMONIAon 03-26-2022 Ammonia (P) [Moles/Vol] 26 umol/L Normal 11-32 [facility] Comment on above: Performed By: #### A MM ####[facility] Tpbshkwsbt[address] [place], [place] [address]Dr. Bhavani Barragan CBC AUTO DIFFon 03-26-2022 BASO # 0.2 103/ul Critically high 0.0-0.1 The [facility] Comment on above: Performed By: #### C BC ####[facility] Jrdzqakpdn[address] [place], [place] [address]Dr. Jayceeroxi Barragan Basophils/100 WBC (Bld) 0.8 % Normal 0.2-2.0 [facility] Comment on above: Performed By: #### C BC ####[facility] [address]lgrvgqlv[address] [place], [place] [address]Dr. Bhavani Laurel EO # 0.0 103/ul Normal 0.0-0.7 [facility] Comment on above: Performed By: #### C BC ####[facility] Qghxhccjvr[address] [place], [place] [address]Dr. Jayceeroxi Barragan Eosinophils/100 WBC (Bld) 0.1 % Critically low 0.9-7.0 [facility] Comment on above: Performed By: #### C BC ####[facility] [address]ozkpdzzcw[address] [place], [place] [address]Dr. Bhavani Laurel Erythrocyte distribution width (RBC) [Ratio] 16.0 % Critically high 11.0-15.0 [facility] Comment on above: Performed By: #### C BC ####[facility] Zrvbxncihv4639 [place] [address]Dr. Bhavani Barragan Hematocrit (Bld) [Volume fraction] 43.9 % Normal 36.0-48.0 [facility] Comment on above: Performed By: #### C BC ####[facility] Owfsltppce4148 [place] [address]Dr. Bhavani Barragan Hemoglobin (Bld) [Mass/Vol] 13.6 g/dL Normal 12.0-16.0 [facility] Comment on above: Performed By: #### C BC ####[facility] Lbqjriblhn0512 [place] [address]Dr. Bhavani Barragan IG # 0.78 10e3/ul Critically high 0.00-0.03 [facility] Comment on above: Performed By: #### C BC ####[facility] Fyqhlalpfm2089 [place] [address]Dr. Bhavani Barragan IG % 3.5 % Critically high 0.0-0.5 [facility] Comment on above: Performed By: #### C BC ####[facility] Xkwivajjxv6725 [place] [address]Dr. Bhavani Barragan LYMPH # 0.9 103/ul Critically low 1.2-3.8 [facility] Comment on above: Performed By: #### C BC ####[facility] Prgoormeru3389 [place] [address]Dr. Bhavani Barragan Lymphocytes/100 WBC (Bld) 3.9 % Critically low 20.5-60.0 [facility] Comment on above: Performed By: #### C BC ####[facility] Mmwfgrcusk0987 [place] [address]Dr. Bhavani Barragan MANUAL DIFF REQ NO Normal [facility] Comment on above: Performed By: #### C BC ####[facility] Veyxnnadcm[address] [place], [place] [address]Dr. Jayceeroxi Barragan MCH (RBC) [Entitic mass] 30.0 pg Normal 26.7-34.0 [facility] Comment on above: Performed By: #### C BC ####[facility] Ppyfbwuqrr8252 [place] [address]Dr. Bhavani Barragan MCHC (RBC) [Mass/Vol] 31.0 g/dL Normal 29.9-35.2 [facility] Comment on above: Performed By: #### C BC ####[facility] Uepyjxtrii7347 [place] [address]Dr. Bhavani Barragan MCV (RBC) [Entitic vol] 96.9 fL Normal 81.0-99.0 [facility] Comment on above: Performed By: #### C BC ####[facility] Dyladjkvlr3249 [place] [address]Dr. Bhavani Barragan MONO # 0.6 103/ul Normal 0.3-0.8 [facility] Comment on above: Performed By: #### C BC ####[facility] Xbgcrgnciw0564 [place] [address]Dr. Jayceeroxi Barragan Monocytes/100 WBC (Bld) 2.7 % Normal 1.7-12.0 [facility] Comment on above: Performed By: #### C BC ####[facility] Rttthoewfv8105 [place] [address]Dr. Bhavani Barragan NEUT # 20.1 103/ul Critically high 1.4-6.5 The [facility] Comment on above: Performed By: #### C BC ####[facility] Auheqbrydu3047 [place] [address]Dr. Bhavani Laurel Neutrophils/100 WBC (Bld) 89.0 % Critically high 43.0-75.0 [facility] Comment on above: Performed By: #### C BC ####[facility] Txkgkcmzky6352 [place] [address]Dr. Bhavani Laurel Platelet mean volume (Bld) [Entitic vol] 9.7 fL Normal 9.5-13.5 [facility] Comment on above: Performed By: #### C BC ####[facility] Pqkvayebzl7487 [place] [address]Dr. Jayceeroxi Barragan PLT 434 103/ul Normal 150-450 [facility] Comment on above: Performed By: #### C BC ####[facility] Gxgtdbznry6266 [place] [address]Dr. Bhavani Barragan RBC 4.53 106/ul Normal 4.20-5.40 [facility] Comment on above: Performed By: #### C BC ####[facility] Blwdysorbo5168 [place] [address]Dr. Bhavani Barragan WBC 22.6 103/ul Critically high 4.0-11.0 [facility] Comment on above: Performed By: #### C BC ####[facility] Cgkxwqecmb9309 [place] [address]Dr. Bhavani Barragan ECHOCARDIO M/2D COMPLETEon 0 03-26-2022 ECHOCARDIO M/2D COMPLETE Normal [facility] POINT OF CARE GLUCOSEon Glucose [Mass/Vol] 166 mg/dL Critically high 74-106 [facility] Comment on above: Performed By: #### P OCGLUC ####[facility] Fkjmtgxtoo3379 [place] [address]Dr. Bhavani Barragan Glucose [Mass/Vol] 148 mg/dL Critically high 74-106 [facility] Comment on above: Performed By: #### P OCGLUC ####[facility] Fcawwsgebw[address] [place], [place] [address]Dr. Bhavani Barragan PROF 14(COMP METB)on 022 Albumin [Mass/Vol] 2.4 g/dL Critically low 3.4-5.0 [facility] Comment on above: Performed By: #### C MP ####[facility] Ajribgqjsm5525 [place] [address]Dr. Bhavani Barragan Albumin/Globulin [Mass ratio] 0.6 {ratio} Normal [facility] Comment on above: Performed By: #### C MP ####[facility] Qqpyfcmlmb9846 [place] [address]Dr. Bhavani Barragan ALP [Catalytic activity/Vol] 310 U/L Critically high 46-116 [facility] Comment on above: Performed By: #### C MP ####[facility] Llgnjhrcll1083 [place] [address]Dr. Bhavani Barragan ALT [Catalytic activity/Vol] 194 U/L Critically high 14-59 [facility] Comment on above: Performed By: #### C MP ####[facility] Cbmiklgpdi1215 [place] [address]Dr. Jayceeroxi Laurel Anion gap [Moles/Vol] 8.2 mmol/L Normal [facility] Comment on above: Performed By: #### C MP ####[facility] Qcjydqrmsj[address] [place], [place] [address]Dr. Bhavani Laurel AST [Catalytic activity/Vol] 133 U/L Critically high 15-37 [facility] Comment on above: Performed By: #### C MP ####[facility] Krpkrddymj54[address] [place], [place] [address]Dr. Bhavani Barragan Bilirubin [Mass/Vol] 2.8 mg/dL Critically high 0.2-1.0 [facility] Comment on above: Performed By: #### C MP ####[facility] Itolkedcng7[address] [place], [place] [address]Dr. Bhavani Barragan Calcium [Mass/Vol] 7.7 mg/dL Critically low 8.5-10.1 [facility] Comment on above: Performed By: #### C MP ####[facility] Sjjheninah[address] [place], [place] [address]Dr. Bhavani Barragan Chloride [Moles/Vol] 105 mmol/L Normal 98-107 [facility] Comment on above: Performed By: #### C MP ####[facility] Cyearcwuat90[address] [place], [place] [address]Dr. Bhavani Barragan CO2 [Moles/Vol] 25.8 mmol/L Normal 21.0-32.0 [facility] Comment on above: Performed By: #### C MP ####[facility] Gvhskdxsdc[address] [place], [place] [address]Dr. Bhavani Barragan Creatinine [Mass/Vol] 1.07 mg/dL Critically high 0.55-1.02 [facility] Comment on above: Performed By: #### C MP ####[facility] [address]qyaivvkm[address] [place], [place] [address]Dr. Bhavani Barragan EGFR-AF ALBANIAN 60 mL/min/1.73m2 Normal >=60 [facility] Comment on above: Performed By: #### C MP ####[facility] Cgzyheypmi9930 [place] [address]Dr. Bhavani Laurel EGFR-NON AF ALB[place]IAN 49 mL/min/1.73m2 Critically low >=60 [facility] Comment on above: Performed By: #### C MP ####[facility] Hknqheoiiy0845 [place] [address]Dr. Bhavani Laurel Globulin (S) [Mass/Vol] 3.8 g/dL Normal [facility] Comment on above: Performed By: #### C MP ####[facility] Wgjpotacwr[address] [place], [place] [address]Dr. Bhavani Barragan Glucose [Mass/Vol] 90 mg/dL Normal 74-106 [facility] Comment on above: Performed By: #### C MP ####[facility] Kvbleoclnr[address] [place], [place] [address]Dr. Bhavani Barragan Potassium [Moles/Vol] 4.0 mmol/L Normal 3.5-5.1 [facility] Comment on above: Performed By: #### C MP ####[facility] Dxfmqzvheb[address] [place], [place] [address]Dr. Jayceeroxi Laurel Protein [Mass/Vol] 6.2 g/dL Critically low 6.4-8.2 Th [facility] Comment on above: Performed By: #### C MP ####[facility] Otjknmsqlv[address] [place], [place] [address]Dr. Bhavani Barragan Sodium [Moles/Vol] 135 mmol/L Critically low 136-145 Th [facility] Comment on above: Performed By: #### C MP ####[facility] Rdifdrreos[address] [place], [place] [address]Dr. Bhavani Barragan Urea nitrogen [Mass/Vol] 14.0 mg/dL Normal 7.0-18.0 [facility] Comment on above: Performed By: #### C MP ####[facility] Jbrdrlptzm[address] [place], [place] [address]Dr. Bhavani Barragan Urea nitrogen/Creatinine [Mass ratio] 13.1 mg/mg Normal [facility] Comment on above: Performed By: #### C MP ####[facility] I[address]ilgkpnu[address] [place], [place] [address]DrLydia Barragan PROTIMEon 03-26-2022 INR Coag (PPP) [Relative time] 1.31 {INR} Normal [facility] Comment on above: Performed By: #### P T, PTT ####[facility] [address]eejixypr[address] [place], [place] [address]DrLydia Barragan INR GUIDELINES SEE BELOW Normal [facility] Comment on above: Result Comment: WALKER RED INR: 2.0 - 3.0 CONDITIONS NOT LISTED BELOW 2.5 - 3.5 FOR PROSTHETIC HEART VALVE REPLACEMENT 2.5 - 3.5 RECURRENT THROMBOSIS Performed By: #### P T, PTT ####[facility] [address] [place], [place] [address]Dr. Bhavani Barragan PT Coag (PPP) [Time] 13.9 s Critically high 9.0-11.6 [facility] Comment on above: Performed By: #### P T, PTT ####[facility] [address]rsq[address] [place], [place] [address]DrLydia Barragan PTTon 03-26-2022 aPTT Coag (Bld) [Time] 32.8 s Normal 22.3-36.2 [facility] Comment on above: Performed By: #### P T, PTT ####[facility] Ntvsjarq[address] [place], [place] [address]Dr. Bhavani Barragan AMMONIAon 03-25-2022 Ammonia (P) [Moles/Vol] 17 umol/L Normal 11-32 [facility] Comment on above: Performed By: #### A MM ####[facility] [address]whpxud[address]dw[address] [place], [place] [address]DrLydia Barragan CBC W MANUAL DIFFon 03-25-20 22 ATYPICAL LYMPH # Normal The [facility] Comment on above: Performed By: #### C BCMAN ####[facility] Dvsysoheyt[address] [place], [place] [address]Dr. Yilan Barragan ATYPICAL LYMPH % Normal [facility] Comment on above: Performed By: #### C BCMAN ####[facility] Wooltvdhhh[address] [place] [id number]. Bhavani Barragan BAND # 0.3 103/ul Normal 0.0-0.3 [facility] Comment on above: Performed By: #### C BCMAN ####[facility] Prjjoxfcwe[address] [place] [address]Dr. Jayceelan Barragan BAND % 1 % Normal 0-5 [facility] Comment on above: Performed By: #### C BCJERSON ####[facility] Traqjtfgsf3[address] [place] [address]Dr. Bhavani Barragan BASOM # 0.27 103/ul Critically high 0.00-0.10 The [facility] Comment on above: Performed By: #### C BCJERSON ####[facility] Fnvazbjlpm6[address] [place] [address]Dr. Bhavani Barragan BASOM % 1.0 % Normal 0.2-2.0 [facility] Comment on above: Performed By: #### C BCJERSON ####[facility] Cuiepfzkpe[address] [place] [address]Dr. Bhavani Barragan BLAST # Normal [facility] Comment on above: Performed By: #### C BCJERSON ####[facility] Jbnpetcrrt47[address] [place] [id number]. Bhavani Barragan BLAST % Normal [facility] Comment on above: Performed By: #### C BCJERSON ####[facility] Symoqogvrr[address] [place] [address]Dr. Bhavani Barragan CORRECTED WBC Normal 4.0-11.[address] [facility] Comment on above: Performed By: #### C OMID ####[facility] Vagnkpszrp03[address] [place] [address]Dr. Bhavani Barragan EOS # 0.00 103/ul Normal 0.00-0.70 [facility] Comment on above: Performed By: #### C BCJERSON ####[facility] Rajiaqubwf[address] [place], [place] [address]Dr. Bhavnai Barragan EOS% 0.0 % Critically low 0.9-7.[address] [facility] Comment on above: Performed By: #### C OMID ####[facility] Yjwpllymoc40[address] [place] [address]Dr. Bhavani Barragan HCT 41.6 % Normal 36.0-48.0 The [facility] Comment on above: Performed By: #### C OMID ####[facility] Ablnnuktvy5[address] [place] [address]Dr. Bhavani Barragan HGB 12.8 g/dl Normal 12.0-16.0 [facility] Comment on above: Performed By: #### C OMID ####[facility] Txweshtfbo28[address] [place] [address]Dr. Bhavani Barragan LYMPHM # 0.80 103/ul Critically low 1.20-3.80 [facility] Comment on above: Performed By: #### Jany ANNE ####[facility] Kvlmbrfkyq66[address] [place] [address]Dr. Bhavani Barragan LYMPHM% 3.0 % Critically low 20.5-60.[address] [facility] Comment on above: Performed By: #### Jany ANNE ####[facility] Ghwrbecqeb[address] [place], [place] [address]Dr. Bhavani Barragan MCH 29.4 pg Normal 26.7-34.0 [facility] Comment on above: Performed By: #### Jany ANNE ####[facility] Tddggzymna16[address] [place] [address]Dr. Bhavani Barragan MCHC 30.8 g/dl Normal 29.9-35.2 [facility] Comment on above: Performed By: #### Jany ANNE ####[facility] Iobtbmalck4428 [place] [id number]. Bhavani Barragan MCV 95.6 fL Normal 81.0-99.0 [facility] Comment on above: Performed By: #### Jany ANNE ####[facility] Rxweuhtsrf95[address] [place] [address]Dr. Bhavani Barragan METAMYELOCYTE # Normal The [facility] Comment on above: Performed By: #### C OMID ####[facility] Kmykepmcmh8294 [place], [place] [address]Lv. Bhavani Barragan METAMYELOCYTE % Normal The [facility] Comment on above: Performed By: #### C OMID ####[facility] Wyjbcmtwlv6949 [place], [place] [address]Ek. Bhavani Barragan MONOM# 0.80 103/ul Normal 0.30-0.80 [facility] Comment on above: Performed By: #### Jany ANNE ####[facility] Xrnpkkmhbz9110 [place], [place] [address]By. Bhavani aBrragan MONOM% 3.0 % Normal 1.7-12.0 [facility] Comment on above: Performed By: #### Jany ANNE ####[facility] Etxwrhmvnn0427 [place] [address]Dr. Bhavani Barragan MPV 9.9 fL Normal 9.5-13.5 [facility] Comment on above: Performed By: #### Jany ANNE ####[facility] Cbbjwpjznv8822 [place] [address]Dr. Bhavani Barragan MYELOCYTE # Normal [facility] Comment on above: Performed By: #### Jany ANNE ####[facility] Phhspniizc9533 [place] [address]Dr. Bhavani Barragan MYELOCYTE % Normal [facility] Comment on above: Performed By: #### Jany ANNE ####[facility] Ldhimoosfw5835 [place] [address]Dr. Bhavani Barragan NRBC Normal [facility] Comment on above: Performed By: #### aJny ANNE ####[facility] Jnoisqiqsi1844 [place], [place] [address]Dc. Bhavani Barragan PLT 448 103/ul Normal 150-450 [facility] Comment on above: Performed By: #### Jany ANNE ####[facility] Mytlbdsvta7731 [place], [place] [address]Cn. Bhavani Barragan RBC 4.35 106/ul Normal 4.20-5.40 [facility] Comment on above: Performed By: #### Jany ANNE ####[facility] Qoqcibbjhy1511 [place], [place] [address]Pk. Bhavani Barragan RDW 16.0 % Critically high 11.0-15.0 The [facility] Comment on above: Performed By: #### C BCMAN ####[facility] Mxgcqjaedw4825 [place], [place] [address]Pe. Bhavani Barragan SEG # 24.38 103/ul Critically high 1.40-6.50 The [place] [facility] Comment on above: Performed By: #### C BCMAN ####[facility] Ziofafaneu2231 [place] [address]Dr. Bhavani Barragan SEG % 92.0 % Critically high 43.0-75.0 The [facility] Comment on above: Performed By: #### C OMID ####[facility] Tpdmaihlre3325 [place] [address]Dr. Bhavani Barragan WBC 26.5 103/ul Critically high 4.0-11.0 The [facility] Comment on above: Performed By: #### C BCJERSON ####[facility] Riuynbdote0394 [place] [address]Dr. Bhavani Barragan DIFFERENTIAL MANUALon 2021 ATYPICAL LYMPH # Normal The [facility] Comment on above: Performed By: #### D IFF ####[facility] Eewumcdlhe9486 [place] [address]Dr. Bhavani Barragan ATYPICAL LYMPH % Normal [facility] Comment on above: Performed By: #### D IFF ####[facility] Lmxdkliqdc9996 [place] [address]Dr. Bhavani Barragan BAND # 0.3 103/ul Normal 0.0-0.3 [facility] Comment on above: Performed By: #### D IFF ####[facility] Uhwyvucizl75[address] [place] [address]Dr. Bhavani Barragan BAND % 1 % Normal 0-5 [facility] Comment on above: Performed By: #### D IFF ####[facility] Xuggpehuwa1951 [place] [address]Dr. Bhavani Barragan BASOM # 0.27 103/ul Critically high 0.00-0.10 [facility] Comment on above: Performed By: #### D IFF ####[facility] Kygfdqnqjl0598 [place] [address]Dr. Bhavani Barragan BASOM % 1.0 % Normal 0.2-2.0 [facility] Comment on above: Performed By: #### D IFF ####[facility] Tjhuujhzqi5061 [place] [address]Dr. Bhavani Barragan BLAST # Normal [facility] Comment on above: Performed By: #### D IFF ####[facility] Kfgcftksgv3088 [place] [address]Dr. Bhavani Barragan BLAST % Normal [facility] Comment on above: Performed By: #### D IFF ####[facility] Ykgdykwbfj[address] [place], [place] [address]Dr. Bhavani Barragan CORRECTED WBC Normal 4.0-11.[address] [facility] Comment on above: Performed By: #### D IFF ####[facility] Bgoutwylol[address] [place], [place] [address]Dr. Bhavani Barragan EOS # 0.00 103/ul Normal 0.00-0.70 [facility] Comment on above: Performed By: #### D IFF ####[facility] Irbqhqnxgc[address] [place], [place] [address]Dr. Bhavani Barragan EOS% 0.0 % Critically low 0.9-7.0 The [facility] Comment on above: Performed By: #### D IFF ####[facility] L[address]fwdgmxb[address] [place], [place] [address]Dr. Bhavani Barragan LYMPHM # 0.80 103/ul Critically low 1.20-3.80 The [facility] Comment on above: Performed By: #### D IFF ####[facility] [address]jswkvtzj[address] [place], [place] [address]Dr. Bhavani Barragan LYMPHM% 3.0 % Critically low 20.5-60.0 The [facility] Comment on above: Performed By: #### D IFF ####[facility] [address]qsxihvh[address] [place], [place] [address]Dr. Bhavani Barragan METAMYELOCYTE # Normal [facility] Comment on above: Performed By: #### D IFF ####[facility] Hiyjmyqkgg2873 [place] [phone]. Bhavani Barragan METAMYELOCYTE % Normal The [facility] Comment on above: Performed By: #### D IFF ####[facility] Txpmmobswz4754 [place] [address]Dr. Bhavani Barragan MONOM# 0.80 103/ul Normal 0.30-0.80 [facility] Comment on above: Performed By: #### D IFF ####[facility] Mvklbjcxcp8386 [place] [address]Dr. Bhavani Barragan MONOM% 3.0 % Normal 1.7-12.0 [facility] Comment on above: Performed By: #### D IFF ####[facility] [address]qauwgxep[address] [place], [place] [address]Dr. Bhavani Barragan MYELOCYTE # Normal [facility] Comment on above: Performed By: #### D IFF ####[facility] Iqkokwnpmt[address] [place], [place] [address]Dr. Bhavani Barragan MYELOCYTE % Normal [facility] Comment on above: Performed By: #### D IFF ####[facility] Eeyutzkyhg3233 [place] [address]Dr. Bhavani Barragan NRBC Normal [facility] Comment on above: Performed By: #### D IFF ####[facility] Jhmzvtuzws5948 [place] [address]Dr. Bhavani Barragan SEG # 24.38 103/ul Critically high 1.40-6.50 [facility] Comment on above: Performed By: #### D IFF ####[facility] Rwgljsjuyn[address] [place], [place] [address]Dr. Bhavani Barragan SEG % 92.0 % Critically high 43.0-75.0 [facility] Comment on above: Performed By: #### D IFF ####[facility] Dbnfevrgkt[address] [place], [place] [address]Dr. Bhavani Barragan WBC 26.5 103/ul Critically high 4.0-11.0 [facility] Comment on above: Performed By: #### D IFF ####[facility] Hgkbjwwdpk7863 [place] [address]Dr. Bhavani Barragan POINT OF CARE GLUCOSEon 05- Glucose [Mass/Vol] 120 mg/dL Critically high 74-106 [facility] Comment on above: Performed By: #### P OCGLUC ####[facility] Brknynbfte4954 [place] [address]Dr. Bhavani Barragan Glucose [Mass/Vol] 98 mg/dL Normal 74-106 [facility] Comment on above: Performed By: #### P OCGLUC ####[facility] Jhvedjxnjc1923 [place] [address]Dr. Bhavani Barragan PROF 14(COMP METB)on 022 Albumin [Mass/Vol] 2.3 g/dL Critically low 3.4-5.0 [facility] Comment on above: Performed By: #### C MP ####[facility] Vdcsrrfvkw4196 [place] [address]Dr. Bhavani Barragan Albumin/Globulin [Mass ratio] 0.6 {ratio} Normal [facility] Comment on above: Performed By: #### C MP ####[facility] Ksqygeqyyk4990 [place] [address]Dr. Bhavani Barragan ALP [Catalytic activity/Vol] 309 U/L Critically high 46-116 [facility] Comment on above: Performed By: #### C MP ####[facility] Razaoyckag9928 [place] [address]Dr. Bhavani Barragan ALT [Catalytic activity/Vol] 163 U/L Critically high 14-59 [facility] Comment on above: Performed By: #### C MP ####[facility] Lcpdosisrp5416 [place] [address]Dr. Bhavani Barragan Anion gap [Moles/Vol] 12.2 mmol/L Normal [facility] Comment on above: Performed By: #### C MP ####[facility] Fhauhmysdz5841 [place] [id number]. Bhavani Barragan AST [Catalytic activity/Vol] 103 U/L Critically high 15-37 [facility] Comment on above: Performed By: #### C MP ####[facility] Zbagkuizpl8692 [place] [address]Dr. Bhavani Barragan Bilirubin [Mass/Vol] 1.5 mg/dL Critically high 0.2-1.0 [facility] Comment on above: Performed By: #### C MP ####[facility] Rdrvqidbtl2812 [place] [address]Dr. Bhavani Barragan Calcium [Mass/Vol] 7.3 mg/dL Critically low 8.5-10.1 Th e [facility] Comment on above: Performed By: #### C MP ####[facility] Quhcimzvdz[address] [place], [place] [address]Dr. Bhavani Barragan Chloride [Moles/Vol] 107 mmol/L Normal 98-107 [facility] Comment on above: Performed By: #### C MP ####[facility] Qnlfiouxoo8[address] [place], [place] [address]Dr. Bhavani Barragan CO2 [Moles/Vol] 21.9 mmol/L Normal 21.0-32.0 The [facility] Comment on above: Performed By: #### C MP ####[facility] Lphajzobgq[address] [place], [place] [address]Dr. Bhavani Barragan Creatinine [Mass/Vol] 1.22 mg/dL Critically high 0.55-1.02 [facility] Comment on above: Performed By: #### C MP ####[facility] Tclphlftqp0042 [place] [address]Dr. Bhavani Barragan EGFR-AF ALBANIAN 51 mL/min/1.73m2 Critically low >=60 [facility] Comment on above: Performed By: #### C MP ####[facility] Gfrddsgbkn1029 [place] [address]Dr. Bhavani Barragan EGFR-NON AF ALBANIAN 42 mL/min/1.73m2 Critically low >=60 [facility] Comment on above: Performed By: #### C MP ####[facility] Tjbgrcjort8494 [place] [address]Dr. Bhavani Barragan Globulin (S) [Mass/Vol] 3.7 g/dL Normal [facility] Comment on above: Performed By: #### C MP ####[facility] Dmdtuqdflu6241 [place] [address]Dr. Bhavani Barragan Glucose [Mass/Vol] 165 mg/dL Critically high 74-106 T [facility] Comment on above: Performed By: #### C MP ####[facility] Xdoyowtetg2756 [place] [address]Dr. Bhavani Barragan Potassium [Moles/Vol] 4.1 mmol/L Normal 3.5-5.1 [facility] Comment on above: Performed By: #### C MP ####[facility] Lmnprqpzpj[address] [place], [place] [address]Dr. Bhavani Barragan Protein [Mass/Vol] 6.0 g/dL Critically low 6.4-8.2 [facility] Comment on above: Performed By: #### C MP ####[facility] Hbbkcjbbea[address] [place], [place] [address]Dr. Bhavani Barragan Sodium [Moles/Vol] 137 mmol/L Normal 136-145 [facility] Comment on above: Performed By: #### C MP ####[facility] [address]ztnzozzhr74[address] [place], [place] [address]Dr. Bhavani Barragan Urea nitrogen [Mass/Vol] 18.0 mg/dL Normal 7.0-18.0 [facility] Comment on above: Performed By: #### C MP ####[facility] Xysiunzspd[address] [place], [place] [address]Dr. Bhavani Barragan Urea nitrogen/Creatinine [Mass ratio] 14.8 mg/mg Normal [facility] Comment on above: Performed By: #### C MP ####[facility] Knbhnzjtao[address] [place], [place] [address]Dr. Bhavani Barragan PROTIMEon 03-25-2022 INR Coag (PPP) [Relative time] 1.18 {INR} Normal [facility] Comment on above: Performed By: #### P TT, PT ####[facility] Ggarqltdxl13[address] [place] [address]Dr. Bhavani Barragan INR GUIDELINES SEE BELOW Normal [facility] Comment on above: Result Comment: WALKER RED INR: 2.0 - 3.0 CONDITIONS NOT LISTED BELOW 2.5 - 3.5 FOR PROSTHETIC HEART VALVE REPLACEMENT 2.5 - 3.5 RECURRENT THROMBOSIS Performed By: #### P TT, PT ####[facility] Fenuhzhtzg[address] [place], [place] [address]Dr. Bhavani Barragan PT Coag (PPP) [Time] 12.6 s Critically high 9.0-11.6 [facility] Comment on above: Performed By: #### P TT, PT ####[facility] S[address]cljvxdn[address] [place], [place] [address]Dr. Bhavani Barragan PTTon 03-25-2022 aPTT Coag (Bld) [Time] 30.6 s Normal 22.3-36.2 [facility] Comment on above: Performed By: #### P TT, PT ####[facility] Knjorqehxh[address] [place], [place] [address]Dr. Bhavani Barragan AMMONIAon 03-24-2022 Ammonia (P) [Moles/Vol] 38 umol/L Critically high 11-32 [facility] Comment on above: Performed By: #### A MM ####[facility] [address]khvdmczuf[address] [place], [place] [address]Dr. Bhavani Barragan BNPon 03-24-2022 Natriuretic peptide B (Bld) [Mass/Vol] 2420.0 pg/mL Critically high <=1,800.0 [facility] Comment on above: Result Comment: repe ated Performed By: #### B TRAIN CALLER, CMP ####[facility] Pwwhijvhca[address] [place], [place] [address]Dr. Bhavani Barragan CARDIAC ANDREA 3-6on 2 CK [Catalytic activity/Vol] 20 U/L Critically low 26-192 [facility] Comment on above: Performed By: #### C MREP ####[facility] [address]kvfkrbb[address] [place], [place] [address]Dr. Bhavani Barragan CK.MB [Mass/Vol] ng/mL Normal <=3.60 [facility] Comment on above: Performed By: #### C MREP ####[facility] Zsrqtrpkib6470 [place] [address]Dr. Bhavani Barragan HSTROP 42.4 pg/mL Normal 4.0-51.3 [facility] Comment on above: Result Comment: CUT- OFF POINTS HAVE BEEN ESTABLISHED BASED ON THE FOURTH UNIVERSAL DEFINITIONS OF MYOCARDIALINFARCTION. THE UPPER REFERENCE LIMIT (URL) OF TROPONIN, DEFINED THE 99TH PERCENTILE OFcTnI DISTRIBUTION IN A REFERENCE POPULATION, HAS BEEN CONFIRMED THE DECISION THRESHOLDFOR KS DIAGNOSIS. Performed By: #### C MREP ####[facility] Dfgzadwunu5732 [place] [address]Dr. Bhavani Barragan CK [Catalytic activity/Vol] 17 U/L Critically low 26-192 [facility] Comment on above: Performed By: #### C MREP ####[facility] Hrjwhkwvuz[address] [place], [place] [address]Dr. Jayceeroxi Barragan CK.MB [Mass/Vol] 0.51 ng/mL Normal <=3.60 [facility] Comment on above: Performed By: #### C MREP ####[facility] Hocahuscio[address] [place], [place] [address]Dr. Bhavani Laurel HSTROP 45.4 pg/mL Normal 4.0-51.3 [facility] Comment on above: Result Comment: CUT- OFF POINTS HAVE BEEN ESTABLISHED BASED ON THE FOURTH UNIVERSAL DEFINITIONS OF MYOCARDIALINFARCTION. THE UPPER REFERENCE LIMIT (URL) OF TROPONIN, DEFINED THE 99TH PERCENTILE OFcTnI DISTRIBUTION IN A REFERENCE POPULATION, HAS BEEN CONFIRMED THE DECISION THRESHOLDFOR KS DIAGNOSIS. Performed By: #### C MREP ####[facility] Vgupfgxelg4256 [place] [address]Dr. Bhavani Barragan CBC W MANUAL DIFFon 03-24-20 22 ANISOCYTOSIS 1+ Normal [facility] Comment on above: Performed By: #### C BCMAN ####[facility] Hqobstqxsw8732 [place] [address]Dr. Bhavani Barragan ATYPICAL LYMPH # Normal [facility] Comment on above: Performed By: #### C OMID ####[facility] Pntktylpzt9645 [place] [id number]. Bhavani Barragan ATYPICAL LYMPH % Normal [facility] Comment on above: Performed By: #### C OMID ####[facility] Gsqufuowwe2934 [place], [place] [address]Zt. Yilan Barragan BAND # 0.8 103/ul Critically high 0.0-0.3 The [facility] Comment on above: Performed By: #### C OMID ####[facility] Jspwduwcgf7096 [place] [address]Dr. Yilan Barragan BAND % 3 % Normal 0-5 [facility] Comment on above: Performed By: #### C OMID ####[facility] Gpqvazlimj7592 [place] [address]Dr. Bhavani Barragan BASOM # 0.00 103/ul Normal 0.00-0.10 [facility] Comment on above: Performed By: #### C OMID ####[facility] Epvhjzfsqk1734 [place] [address]Dr. Bhavani Barragan BASOM % 0.0 % Critically low 0.2-2.0 [facility] Comment on above: Performed By: #### C OMID ####[facility] Ckazjmrokp2887 [place] [address]Dr. Yiroxi Barragan BLAST # Normal [facility] Comment on above: Performed By: #### C OMID ####[facility] Spudyykviy38[address] [place] [address]Dr. Yilan Barragan BLAST % Normal [facility] Comment on above: Performed By: #### C OMID ####[facility] Tfxmglpshd1709 [place] [address]Dr. Bhavani Barragan CORRECTED WBC Normal 4.0-11.[address] [facility] Comment on above: Performed By: #### C OMID ####[facility] Oeeyqvhvwt9184 [place] [id number]. Jayceelan Barragan EOS # 0.00 103/ul Normal 0.00-0.70 [facility] Comment on above: Performed By: #### Jany ANNE ####[facility] Jrynhuxadz1138 [place], [place] [address]Wj. Bhavani Barragan EOS% 0.0 % Critically low 0.9-7.0 [facility] Comment on above: Performed By: #### Jany ANNE ####[facility] Sluxcuazsw1514 [place], [place] [address]Ov. Bhavani Barragan HCT 44.0 % Normal 36.0-48.0 [facility] Comment on above: Performed By: #### C OMID ####[facility] Tjlqzreiar2697 [place], [place] [address]Zc. Bhavani Barragan HGB 13.3 g/dl Normal 12.0-16.0 [facility] Comment on above: Performed By: #### Jany ANNE ####[facility] Juqbpethzp4717 [place] [id number]. Bhavani Barragan LYMPHM # 1.08 103/ul Critically low 1.20-3.80 The [facility] Comment on above: Performed By: #### Jany ANNE ####[facility] Ntdpbbrsww9384 [place], [place] [address]Lo. Bhavani Barragan LYMPHM% 4.0 % Critically low 20.5-60.0 The [facility] Comment on above: Performed By: #### Jany ANNE ####[facility] Tioirgzphi2929 [place], [place] [address]Wf. Bhavani Barragan MCH 29.6 pg Normal 26.7-34.0 [facility] Comment on above: Performed By: #### Jany ANNE ####[facility] Fvhrrjlxnn8506 [place], [place] [address]Xl. Bhavani Barragan MCHC 30.2 g/dl Normal 29.9-35.2 [facility] Comment on above: Performed By: #### Jany ANNE ####[facility] Oidhedtwsr5486 [place], [place] [address]Xl. Bhavani Barragan MCV 97.8 fL Normal 81.0-99.0 [facility] Comment on above: Performed By: #### Jany ANNE ####[facility] Nxnifqtrmt6670 [place] [address]Dr. Bhavani Barragan METAMYELOCYTE # Normal [facility] Comment on above: Performed By: #### C OMID ####[facility] Dzzvfibene4112 [place] [address]Dr. Bhavani Barragan METAMYELOCYTE % Normal [facility] Comment on above: Performed By: #### C OMID ####[facility] Kldzxuezng6373 [place] [address]Dr. Bhavani Barragan MONOM# 0.54 103/ul Normal 0.30-0.80 [facility] Comment on above: Performed By: #### C OMID ####[facility] Ryjyidvqsb2340 [place] [address]Dr. Bhavani Barragan MONOM% 2.0 % Normal 1.7-12.0 [facility] Comment on above: Performed By: #### C OMID ####[facility] Ivweaxvytq[address] [place], [place] [address]Dr. Bhavani Barragan MPV 10.3 fL Normal 9.5-13.5 [facility] Comment on above: Performed By: #### C OMID ####[facility] Rxtuqdelgc[address] [place], [place] [address]Dr. Bhavani Barragan MYELOCYTE # Normal [facility] Comment on above: Performed By: #### C OMID ####[facility] Kyazstfxub0236 [place] [address]Dr. Bhavani Barragan MYELOCYTE % Normal [facility] Comment on above: Performed By: #### C OMID ####[facility] Bxmbmhqhxh6942 [place] [address]Dr. Bhavani Barragan NRBC Normal [facility] Comment on above: Performed By: #### C OMID ####[facility] Dhkpbrpvqr5036 [place] [address]Dr. Bhavani Barragan PLT 424 103/ul Normal 150-450 [facility] Comment on above: Performed By: #### C OMID ####[facility] Bprnuqcgzw2603 [place] [address]Dr. Bhavani Barragan RBC 4.50 106/ul Normal 4.20-5.40 [facility] Comment on above: Performed By: #### C OMID ####[facility] Ajbqisnldu1132 [place] [address]Dr. Bhavani Barragan RDW 15.9 % Critically high 11.0-15.0 [facility] Comment on above: Performed By: #### C OMID ####[facility] Nbjblrtygh6717 [place] [address]Dr. Bhavani Barragan SEG # 24.48 103/ul Critically high 1.40-6.50 [facility] Comment on above: Performed By: #### C OMID ####[facility] Fhjtpsbcpu6381 [place] [address]Dr. Bhavani Barragan SEG % 91.0 % Critically high 43.0-75.0 [facility] Comment on above: Performed By: #### C OMID ####[facility] Eztuqfdlpb8558 [place] [address]Dr. Bhavani Barragan WBC 26.9 103/ul Critically high 4.0-11.0 [facility] Comment on above: Performed By: #### C OMID ####[facility] Gzcqigcngz1134 [place] [address]Dr. Bhavani Barragan CULTURE URINEon 03-24-2022 CULTURE URINE Normal [facility] Comment on above: Performed By: #### U RCX ####[facility] Didgzwuwmf1099 [place] [address]Dr. Bhavani Barragan POINT OF CARE GLUCOSEon 05- Glucose [Mass/Vol] 113 mg/dL Critically high 74-106 [facility] Comment on above: Performed By: #### P OCGLUC ####[facility] Xbczxpmjzd3666 [place] [address]Dr. Bhavani Barragan Glucose [Mass/Vol] 103 mg/dL Normal 74-106 [facility] Comment on above: Performed By: #### P OCGLUC ####[facility] Rawtpuvrpz0296 [place] [address]Dr. Bhavani Barragan Glucose [Mass/Vol] 134 mg/dL Critically high 74-106 T [facility] Comment on above: Performed By: #### P OCGLUC ####[facility] Fzblsffchr4921 [place] [address]Dr. Jayceeroxi Barragan PROF 14(COMP METB)on 022 Albumin [Mass/Vol] 2.3 g/dL Critically low 3.4-5.0 [facility] Comment on above: Performed By: #### B TRAIN CALLER, CMP ####[facility] Qzwsgqjtlf[address] [place], [place] [address]Dr. Bhavani Barragan Albumin/Globulin [Mass ratio] 0.6 {ratio} Normal [facility] Comment on above: Performed By: #### B TRAIN CALLER, CMP ####[facility] Cekujynesa[address] [place], [place] [address]Dr. Bhavani Barragan ALP [Catalytic activity/Vol] 239 U/L Critically high 46-116 [facility] Comment on above: Performed By: #### B TRAIN CALLER, CMP ####[facility] Uhnndvudfb9[address] [place], [place] [address]Dr. Bhavani Barragan ALT [Catalytic activity/Vol] 185 U/L Critically high 14-59 [facility] Comment on above: Performed By: #### B TRAIN CALLER, CMP ####[facility] Gspkmdotar01[address] [place], [place] [address]Dr. Bhavani Barragan Anion gap [Moles/Vol] 13.8 mmol/L Normal [facility] Comment on above: Performed By: #### B TRAIN CALLER, CMP ####[facility] Mxjmtgyrfd104[address] [place], [place] [address]Dr. Bhavani Barragan AST [Catalytic activity/Vol] 64 U/L Critically high 15-37 [facility] Comment on above: Performed By: #### B TRAIN CALLER, CMP ####[facility] Rynvjolobf[address] [place], [place] [address]Dr. Bhavani Barragan Bilirubin [Mass/Vol] 0.6 mg/dL Normal 0.2-1.0 [facility] Comment on above: Performed By: #### B TRAIN CALLER, CMP ####[facility] Tsetwrfisz04[address] [place], [place] [address]Dr. Bhavani Barragan Calcium [Mass/Vol] 7.3 mg/dL Critically low 8.5-10.1 [facility] Comment on above: Performed By: #### B TRAIN CALLER, CMP ####[facility] Bjjhkemxya214[address] [place], [place] [address]Dr. Bhavani Barragan Chloride [Moles/Vol] 105 mmol/L Normal 98-107 [facility] Comment on above: Performed By: #### B TRAIN CALLER, CMP ####[facility] Oappakkmsi186[address] [place], [place] [address]Dr. Bhavani Barragan CO2 [Moles/Vol] 20.9 mmol/L Critically low 21.0-32.0 [facility] Comment on above: Performed By: #### B TRAIN CALLER, CMP ####[facility] Gvtrzbmzux[address] [place], [place] [address]Dr. Bhavani Barragan Creatinine [Mass/Vol] 1.24 mg/dL Critically high 0.55-1.02 [facility] Comment on above: Performed By: #### B TRAIN CALLER, CMP ####[facility] Qphiyavqyx[address] [place], [place] [address]Dr. Bhavani Barragan EGFR-AF ALBANIAN 50 mL/min/1.73m2 Critically low >=60 [facility] Comment on above: Performed By: #### B TRAIN CALLER, CMP ####[facility] Bxqcezzjwv[address] [place], [place] [address]Dr. Bhavani Barragan EGFR-NON AF ALBANIAN 41 mL/min/1.73m2 Critically low >=60 [facility] Comment on above: Performed By: #### B TRAIN CALLER, CMP ####[facility] Opzjihncao02[address] [place], [place] [address]Dr. Bhavani Barragan Globulin (S) [Mass/Vol] 3.8 g/dL Normal [facility] Comment on above: Performed By: #### B TRAIN CALLER, CMP ####[facility] Ocfqquvlgx[address] [place], [place] [address]Dr. Bhavani Barragan Glucose [Mass/Vol] 164 mg/dL Critically high 74-106 T [facility] Comment on above: Performed By: #### B TRAIN CALLER, CMP ####[facility] Eckhiluczk[address] [place], [place] [address]Dr. Jayceeroxi Barragan Potassium [Moles/Vol] 3.7 mmol/L Normal 3.5-5.1 [facility] Comment on above: Performed By: #### B TRAIN CALLER, CMP ####[facility] Vzhpulxife[address] [place], [place] [address]Dr. Jayceeroxi Barragan Protein [Mass/Vol] 6.1 g/dL Critically low 6.4-8.2 [facility] Comment on above: Performed By: #### B TRAIN CALLER, CMP ####[facility] Zcbdlfnvhd[address] [place], [place] [address]Dr. Bhavani Barragan Sodium [Moles/Vol] 136 mmol/L Normal 136-145 [facility] Comment on above: Performed By: #### B TRAIN CALLER, CMP ####[facility] Ucyyhphjwr[address] [place], [place] [address]Dr. Bhavani Barragan Urea nitrogen [Mass/Vol] 23.0 mg/dL Critically high 7.0-18.0 [facility] Comment on above: Performed By: #### B TRAIN CALLER, CMP ####[facility] Wgctmedycf[address] [place], [place] [address]Dr. Bhavani Barragan Urea nitrogen/Creatinine [Mass ratio] 18.5 mg/mg Normal [facility] Comment on above: Performed By: #### B TRAIN CALLER, CMP ####[facility] Geimbxjfpv[address] [place], [place] [address]Dr. Bhavani Barragan PROTIMEon 03-24-2022 INR Coag (PPP) [Relative time] 1.19 {INR} Normal [facility] Comment on above: Performed By: #### P TT, PT ####[facility] Tgugbujbxv224[address] [place], [place] [address]Dr. Bhvaani Barragan INR GUIDELINES SEE BELOW Normal [facility] Comment on above: Result Comment: WALKER RED INR: 2.0 - 3.0 CONDITIONS NOT LISTED BELOW 2.5 - 3.5 FOR PROSTHETIC HEART VALVE REPLACEMENT 2.5 - 3.5 RECURRENT THROMBOSIS Performed By: #### P TT, PT ####[facility] Hrdvzertab1257 [place] [address]Dr. Bhavani Barragan PT Coag (PPP) [Time] 12.7 s Critically high 9.0-11.6 [facility] Comment on above: Performed By: #### P TT, PT ####[facility] Fyrevatwei2841 [place] [address]Dr. Bhavani Barragan PTTon 03-24-2022 aPTT Coag (Bld) [Time] 29.4 s Normal 22.3-36.2 [facility] Comment on above: Performed By: #### P TT, PT ####[facility] Sjwnpbxsap[address] [place], [place] [address]Dr. Jayceeroxi Barragan AMMONIAon 03-23-2022 Ammonia (P) [Moles/Vol] 26 umol/L Normal 11-32 [facility] Comment on above: Performed By: #### A MM ####[facility] Srpgbsakge9[address] [place], [place] [address]Dr. Jayceeroxi Laurel AMYLASEon 03-23-2022 Amylase [Catalytic activity/Vol] 21 U/L Critically low 25-115 [facility] Comment on above: Performed By: #### A MY LIPA, BNP ####[facility] Xapcvfxfos[address] [place], [place] [address]Dr. Jayceeroxi Laurel BNPon 03-23-2022 Natriuretic peptide B (Bld) [Mass/Vol] 6713.0 pg/mL Critically high <=1,800.0 [facility] Comment on above: Result Comment: repe ated Performed By: #### B TRAIN CALLER, CMP ####[facility] Bjczjlftnf[address] [place], [place] [address]Dr. Bhavani Barragan Natriuretic peptide B (Bld) [Mass/Vol] 6961.0 pg/mL Critically high <=1,800.0 [facility] Comment on above: Performed By: #### A MY, LIPA, BNP ####[facility] Gfxakeeune[address] [place], [place] [address]Dr. Jayceeroxi Barragan CBC W MANUAL DIFFon 03-23-20 ANISOCYTOSIS 1+ Normal [facility] Comment on above: Performed By: #### C BCJERSON ####[facility] Oowvuoomai75[address] [place] [address]Dr. Yilan Barragan ATYPICAL LYMPH # Normal [facility] Comment on above: Performed By: #### C BCMAN ####[facility] Ozeumvnrml4148 [place] [address]Dr. Yilan Barragan ATYPICAL LYMPH % Normal [facility] Comment on above: Performed By: #### C BCJERSON ####[facility] Qzfwpyxbnf0881 [place] [address]Dr. Yilan Barragan BAND # 0.6 103/ul Critically high 0.0-0.3 [facility] Comment on above: Performed By: #### C OMID ####[facility] Nslfbguukg4006 [place] [address]Dr. Yilan Barragan BAND % 2 % Normal 0-5 [facility] Comment on above: Performed By: #### C OMID ####[facility] Oucpqkayuq[address] [place], [place] [address]Dr. Yilan Barragan BASOM # 0.00 103/ul Normal 0.00-0.10 [facility] Comment on above: Performed By: #### C OMID ####[facility] Gratvvrrby9[address] [place], [place] [address]Dr. Yilan Barragan BASOM % 0.0 % Critically low 0.2-2.0 [facility] Comment on above: Performed By: #### C OMID ####[facility] Avhohgjczc[address] [place], [place] [address]Dr. Yilan Barragan BLAST # Normal [facility] Comment on above: Performed By: #### C OMID ####[facility] Txstvafvvf[address] [place], [place] [address]Dr. Yilan Barragan BLAST % Normal [facility] Comment on above: Performed By: #### C BCJERSON ####[facility] Llfgkbpauh[address] [place], [place] [address]Dr. Jayceelan Barragan CORRECTED WBC Normal 4.0-11.[address] [facility] Comment on above: Performed By: #### C BCJERSON ####[facility] Qouhduybem2033 [place], [place] [address]Ll. Bhavani Barragan EOS # 0.30 103/ul Normal 0.00-0.70 [facility] Comment on above: Performed By: #### C OMID ####[facility] Tgibzcrtbc4782 [place], [place] [address]Jk. Bhavani Barragan EOS% 1.0 % Normal 0.9-7.0 [facility] Comment on above: Performed By: #### C OMID ####[facility] Hpbalktusc0837 [place], [place] [address]Qn. Bhavani Barragan HCT 48.1 % Critically high 36.0-48.0 [facility] Comment on above: Performed By: #### C OMID ####[facility] Fhtnrygdub5751 [place] [address]Dr. Bhavani Barragan HGB 14.6 g/dl Normal 12.0-16.0 [facility] Comment on above: Performed By: #### C OMID ####[facility] Rfqindjioo9196 [place] [address]Dr. Bhavani Barragan LYMPHM # 0.90 103/ul Critically low 1.20-3.80 [facility] Comment on above: Performed By: #### C OMID ####[facility] Sbocxqerca1616 [place] [address]Dr. Bhavani Barragan LYMPHM% 3.0 % Critically low 20.5-60.0 [facility] Comment on above: Performed By: #### C OMID ####[facility] Ajjmkvpcko5548 [place], [place] [address]Xg. Bhavani Barragan MCH 29.4 pg Normal 26.7-34.0 [facility] Comment on above: Performed By: #### C OMID ####[facility] Gabvywmmjt5873 [place] [address]Dr. Bhavani Barragan MCHC 30.4 g/dl Normal 29.9-35.2 [facility] Comment on above: Performed By: #### C OMID ####[facility] Lhsvhoaxoq9590 [place] [address]Dr. Bhavani Barragan MCV 96.8 fL Normal 81.0-99.0 [facility] Comment on above: Performed By: #### C OMID ####[facility] Qjcxsgoyjz2462 [place] [address]Dr. Bhavani Barragan METAMYELOCYTE # Normal [facility] Comment on above: Performed By: #### C OMID ####[facility] Sqfuvwnlrs4219 [place] [address]Dr. Bhavani Barragan METAMYELOCYTE % Normal [facility] Comment on above: Performed By: #### C OMID ####[facility] Ocyvwhdbwv[address] [place], [place] [address]Dr. Bhavani Barragan MONOM# 0.60 103/ul Normal 0.30-0.80 [facility] Comment on above: Performed By: #### C OMID ####[facility] Ergsfshxxv537[address] [place], [place] [address]Dr. Bhavani Barragan MONOM% 2.0 % Normal 1.7-12.0 [facility] Comment on above: Performed By: #### C OMID ####[facility] Penewxspou65[address] [place], [place] [address]Dr. Bhavani Laurel MPV 10.2 fL Normal 9.5-13.5 [facility] Comment on above: Performed By: #### C OMID ####[facility] [address]hmejnqrs[address] [place], [place] [address]Dr. Bhavani Barragan MYELOCYTE # Normal [facility] Comment on above: Performed By: #### C OMID ####[facility] Zqgewdrjba5643 [place] [address]Dr. Jayceeroxi Barragan MYELOCYTE % Normal [facility] Comment on above: Performed By: #### C OMID ####[facility] Emlfcdytqx[address] [place], [place] [address]Dr. Bhavani Barragan NRBC Normal [facility] Comment on above: Performed By: #### C OMID ####[facility] Fxzldnbpvv[address] [place], [place] [address]Dr. Bhavani Barragan PLT 391 103/ul Normal 150-450 [facility] Comment on above: Performed By: #### C BCMAN ####[facility] Zudwwogatd4004 [place] [address]Dr. Bhavani Barragan RBC 4.97 106/ul Normal 4.20-5.40 [facility] Comment on above: Performed By: #### C BCJERSON ####[facility] Zcutiidjll5338 [place] [address]Dr. Bhavani Barragan RDW 15.8 % Critically high 11.0-15.0 [facility] Comment on above: Performed By: #### C BCJERSON ####[facility] Tkvuclyvnd9599 [place] [address]Dr. Bhavnai Barragan SEG # 27.60 103/ul Critically high 1.40-6.50 [facility] Comment on above: Performed By: #### C OMID ####[facility] Vuiarvlyuv1263 [place] [address]Dr. Bhavani Barragan SEG % 92.0 % Critically high 43.0-75.0 [facility] Comment on above: Performed By: #### C OMID ####[facility] Srgjxzsynr[address] [place], [place] [address]Dr. Bhavani Barragan WBC 30.0 103/ul Critically high 4.0-11.0 [facility] Comment on above: Performed By: #### C OMID ####[facility] Axduprwaig5403 [place] [address]Dr. Bhavani Barragan LIPASEon 03-23-2022 Lipase [Catalytic activity/Vol] 35.0 U/L Critically low 73.0-393.0 [facility] Comment on above: Performed By: #### A MY, LIPA, BNP ####[facility] Nekdynetbw69[address] [place], [place] [address]Dr. Bhavani Barragan POINT OF CARE GLUCOSEon Glucose [Mass/Vol] 141 mg/dL Critically high 74-106 [facility] Comment on above: Performed By: #### P OCGLUC ####[facility] Nrajiwwwre9627 [place] [address]Dr. Bhavani Barragan Glucose [Mass/Vol] 107 mg/dL Critically high 74-106 [facility] Comment on above: Performed By: #### P OCGLUC ####[facility] Jxvyaonjpj0596 [place] [address]Dr. Jayceeroxi Barragan Glucose [Mass/Vol] 152 mg/dL Critically high 74-106 [facility] Comment on above: Performed By: #### P OCGLUC ####[facility] Haucbdhwmf6537 [place] [address]Dr. Bhavani Barragan PROF 14(COMP METB)on 022 Albumin [Mass/Vol] 2.4 g/dL Critically low 3.4-5.0 [facility] Comment on above: Performed By: #### B TRAIN CALLER, CMP ####[facility] Pcjwymlwqo[address] [place], [place] [address]Dr. Bhavani Barragan Albumin/Globulin [Mass ratio] 0.6 {ratio} Normal [facility] Comment on above: Performed By: #### B TRAIN CALLER, CMP ####[facility] Klsgvxwnxa[address] [place], [place] [address]Dr. Bhavani Barragan ALP [Catalytic activity/Vol] 298 U/L Critically high 46-116 [facility] Comment on above: Performed By: #### B TRAIN CALLER, CMP ####[facility] Xtkrgfpuez360[address] [place], [place] [address]Dr. Bhavani Barragan ALT [Catalytic activity/Vol] 280 U/L Critically high 14-59 [facility] Comment on above: Performed By: #### B TRAIN CALLER, CMP ####[facility] Hcalhquanb[address] [place], [place] [address]Dr. Bhavani Barragan Anion gap [Moles/Vol] 15.2 mmol/L Normal [facility] Comment on above: Performed By: #### B TRAIN CALLER, CMP ####[facility] Pckuprptrj[address] [place], [place] [address]Dr. Bhavani Barragan AST [Catalytic activity/Vol] 146 U/L Critically high 15-37 [facility] Comment on above: Performed By: #### B TRAIN CALLER, CMP ####[facility] Loirvurzrn4178 [place] [address]Dr. Bhavani Barragan Bilirubin [Mass/Vol] 1.8 mg/dL Critically high 0.2-1.0 [facility] Comment on above: Performed By: #### B TRAIN CALLER, CMP ####[facility] Agdzalbjyk1495 [place] [address]Dr. Bhavani Barragan Calcium [Mass/Vol] 7.7 mg/dL Critically low 8.5-10.1 [facility] Comment on above: Performed By: #### B TRAIN CALLER, CMP ####[facility] Prcoywskzh[address] [place], [place] [address]Dr. Bhavani Barragan Chloride [Moles/Vol] 105 mmol/L Normal 98-107 [facility] Comment on above: Performed By: #### B TRAIN CALLER, CMP ####[facility] Ctcxctkypq[address] [place], [place] [address]Dr. Bhavani Barragan CO2 [Moles/Vol] 22.0 mmol/L Normal 21.0-32.0 The [facility] Comment on above: Performed By: #### B TRAIN CALLER, CMP ####[facility] Mytcvnndpq[address] [place], [place] [address]Dr. Bhavani Barragan Creatinine [Mass/Vol] 1.44 mg/dL Critically high 0.55-1.02 [facility] Comment on above: Performed By: #### B TRAIN CALLER, CMP ####[facility] Rvobtprxep[address] [place], [place] [address]Dr. Bhavani Barragan EGFR-AF ALBANIAN 42 mL/min/1.73m2 Critically low >=60 [facility] Comment on above: Performed By: #### B TRAIN CALLER, CMP ####[facility] Fpyfvobnoa[address] [place], [place] [address]Dr. Bhavani Barragan EGFR-NON AF ALBANIAN 35 mL/min/1.73m2 Critically low >=60 [facility] Comment on above: Performed By: #### B TRAIN CALLER, CMP ####[facility] Nuzedjrfxi[address] [place], [place] [address]Dr. Bhavani Barragan Globulin (S) [Mass/Vol] 4.0 g/dL Normal [facility] Comment on above: Performed By: #### B TRAIN CALLER, CMP ####[facility] Rjkjqfxqws[address] [place], [place] [address]Dr. Bhavani Barragan Glucose [Mass/Vol] 136 mg/dL Critically high 74-106 [facility] Comment on above: Performed By: #### B TRAIN CALLER, CMP ####[facility] Nxdcyhtrjy[address] [place], [place] [address]Dr. Jayceeroxi Laurel Potassium [Moles/Vol] 4.2 mmol/L Normal 3.5-5.1 [facility] Comment on above: Performed By: #### B TRAIN CALLER, CMP ####[facility] Ybxeyshiva[address] [place], [place] [address]Dr. Bhavani Barragan Protein [Mass/Vol] 6.4 g/dL Normal 6.4-8.2 [facility] Comment on above: Performed By: #### B TRAIN CALLER, CMP ####[facility] Myeigxlfjj[address] [place], [place] [address]Dr. Bhavani Barragan Sodium [Moles/Vol] 138 mmol/L Normal 136-145 [facility] Comment on above: Performed By: #### B TRAIN CALLER, CMP ####[facility] Dyvhzbvtse[address] [place], [place] [address]Dr. Bhavani Barragan Urea nitrogen [Mass/Vol] 23.0 mg/dL Critically high 7.0-18.0 [facility] Comment on above: Performed By: #### B TRAIN CALLER, CMP ####[facility] Tsutj[address]cmg[address] [place], [place] [address]Dr. Bhavani Barragan Urea nitrogen/Creatinine [Mass ratio] 16.0 mg/mg Normal [facility] Comment on above: Performed By: #### B TRAIN CALLER, CMP ####[facility] Wvilbdsrzf[address] [place], [place] [address]Dr. Bhavani Barragan PROTIMEon 03-23-2022 INR Coag (PPP) [Relative time] 1.53 {INR} Normal [facility] Comment on above: Performed By: #### P TT, PT ####[facility] Galnndwbg[address] [place], [place] [address]Dr. Bhavani Barragan INR GUIDELINES SEE BELOW Normal [facility] Comment on above: Result Comment: WALKER RED INR: 2.0 - 3.0 CONDITIONS NOT LISTED BELOW 2.5 - 3.5 FOR PROSTHETIC HEART VALVE REPLACEMENT 2.5 - 3.5 RECURRENT THROMBOSIS Performed By: #### P TT, PT ####[facility] [address]qprdm[address] [place] [address]Dr. Bhavani Barragan PT Coag (PPP) [Time] 16.1 s Critically high 9.0-11.6 [facility] Comment on above: Performed By: #### P TT, PT ####[facility] Ahilgscwap[address] [place], [place] [address]Dr. Bhavani Barragan PTTon 03-23-2022 aPTT Coag (Bld) [Time] 29.9 s Normal 22.3-36.2 [facility] Comment on above: Performed By: #### P TT, PT ####[facility] Cmutvfuose[address] [place], [place] [address]Dr. Bhavani Barragan BILIRUBIN CONJUGATED (DIRECT )on 03-22-2022 BILI, CONJUGATED 2.3 mg/dL Critically high 0.0-0.2 [facility] Comment on above: Performed By: #### D RAI ####[facility] Lhibifdcjb[address] [place], [place] [address]Dr. Bhavani Barragan BNPon 03-22-2022 Natriuretic peptide B (Bld) [Mass/Vol] 2436.0 pg/mL Critically high <=1,800.0 [facility] Comment on above: Result Comment: this BNP was run on specimen from ER drawn on 03/22 at 1606 Performed By: #### B TRAIN CALLER ####[facility] Cq[address]iwj[address] [place], [place] [address]Dr. Bhavani Barragan CBC W MANUAL DIFFon 03-22-20 ATYPICAL LYMPH # Normal [facility] Comment on above: Performed By: #### C BCJERSON ####[facility] Yjev[address]ebou[address] [place], [place] [address]Dr. Bhavani Barragan ATYPICAL LYMPH % Normal [facility] Comment on above: Performed By: #### C BCMAN ####[facility] [address]jpt[address] [place] [id number]. Yilan Barragan BAND # 0.9 103/ul Critically high 0.0-0.3 The [facility] Comment on above: Performed By: #### C BCJERSON ####[facility] Ipsaapguxj[address] [place] [address]Dr. Yilan Barragan BAND % 3 % Normal 0-5 [facility] Comment on above: Performed By: #### C BCJERSON ####[facility] Knthwscksx[address] [place] [address]Dr. Yilan Barragan BASOM # 0.00 103/ul Normal 0.00-0.10 [facility] Comment on above: Performed By: #### C OMID ####[facility] Gpjmiwiiud[address] [place] [address]Dr. Yilan Barragan BASOM % 0.0 % Critically low 0.2-2.0 [facility] Comment on above: Performed By: #### C OMID ####[facility] Uisdfsktnj8[address] [place] [address]Dr. Yilan Barragan BLAST # Normal [facility] Comment on above: Performed By: #### C OMID ####[facility] Wljomdeij[address] [place], [place] [address]Dr. Yilan Barragan BLAST % Normal [facility] Comment on above: Performed By: #### C OMID ####[facility] Fdhhjfwybv[address] [place] [address]Dr. Yilan Barragan CORRECTED WBC Normal 4.0-11.[address] [facility] Comment on above: Performed By: #### C OMID ####[facility] Ngylrxdflv32[address] [place] [address]Dr. Yilan Barragan EOS # 0.00 103/ul Normal 0.00-0.70 [facility] Comment on above: Performed By: #### C BCJERSON ####[facility] Quldjppmzw9[address] [place] [address]Dr. Yilan Barragan EOS% 0.0 % Critically low 0.9-7.0 [facility] Comment on above: Performed By: #### Jany ANNE ####[facility] Mfrwmdgzct7472 [place], [place] [address]Rr. Bhavani Barragan HCT 44.6 % Normal 36.0-48.0 [facility] Comment on above: Performed By: #### Jany ANNE ####[facility] [address]qeykcuis[address] [place], [place] [address]Mr. Bhavani Barragan HGB 13.9 g/dl Normal 12.0-16.0 [facility] Comment on above: Performed By: #### Jany ANNE ####[facility] Nopyujhooi[address] [place] [address]Dr. Bhavani Barragan LYMPHM # 0.60 103/ul Critically low 1.20-3.80 The [facility] Comment on above: Performed By: #### Jany ANNE ####[facility] Byxqwhkmhm63[address] [place] [address]Dr. Bhavani Barragan LYMPHM% 2.0 % Critically low 20.5-60.0 [facility] Comment on above: Performed By: #### Jany ANNE ####[facility] Osjltpvsyn17[address] [place] [address]Dr. Bhavani Barragan MCH 29.8 pg Normal 26.7-34.0 [facility] Comment on above: Performed By: #### Jany ANNE ####[facility] Iuubzkzbkk0[address] [place] [address]Dr. Bhavani Barragan MCHC 31.2 g/dl Normal 29.9-35.2 [facility] Comment on above: Performed By: #### Jany ANNE ####[facility] Cyowktrwrz36[address] [place] [address]Dr. Bhavani Barragan MCV 95.7 fL Normal 81.0-99.0 [facility] Comment on above: Performed By: #### Jany ANNE ####[facility] Qfakyqcdkb4837 [place] [address]Dr. Bhavani Barragan METAMYELOCYTE # Normal The [facility] Comment on above: Performed By: #### Jany ANNE ####[facility] Bvsnsmowme5[address] [place] [address]Dr. Jayceeroxi Barragan METAMYELOCYTE % Normal [facility] Comment on above: Performed By: #### C OMID ####[facility] Rboxeqdwli6822 [place] [address]Dr. Bhavani Barragan MONOM# 0.60 103/ul Normal 0.30-0.80 [facility] Comment on above: Performed By: #### C OMID ####[facility] Pjbwrmofuq3403 [place] [address]Dr. Bhavani Barragan MONOM% 2.0 % Normal 1.7-12.0 [facility] Comment on above: Performed By: #### C OMID ####[facility] Ziphisbfzf8760 [place] [address]Dr. Bhavani Laurel MPV 9.7 fL Normal 9.5-13.5 [facility] Comment on above: Performed By: #### C OMID ####[facility] Pdcdqizdqv[address] [place], [place] [address]Dr. Bhavani Barragan MYELOCYTE # Normal [facility] Comment on above: Performed By: #### C OMID ####[facility] Axblkw[address]im[address] [place], [place] [address]Dr. Jayceeroxi Barragan MYELOCYTE % Normal [facility] Comment on above: Performed By: #### C OMID ####[facility] Juffurubqw07[address] [place] [address]Dr. Bhavani Barragan NRBC Normal [facility] Comment on above: Performed By: #### C OMID ####[facility] Ljgrtphsos5[address] [place] [address]Dr. Bhavani Barragan PLT 436 103/ul Normal 150-450 [facility] Comment on above: Performed By: #### C OMID ####[facility] Nuglfjqzpi33[address] [place] [address]Dr. Jayceeroxi Laurel RBC 4.66 106/ul Normal 4.20-5.40 [facility] Comment on above: Performed By: #### C OMID ####[facility] Tbacjs[address]gg[address] [place], [place] [address]Dr. Bhavani Barragan RDW 15.2 % Critically high 11.0-15.0 [facility] Comment on above: Performed By: #### C OMID ####[facility] Mppetimqxg4[address] [place] [address]DrLydia Barragan SEG # 28.09 103/ul Critically high 1.40-6.50 [facility] Comment on above: Performed By: #### C OMID ####[facility] Rsvztmolva80[address] [place] [address]DrLydia Barragan SEG % 93.0 % Critically high 43.0-75.0 [facility] Comment on above: Performed By: #### C OMID ####[facility] Vnaesdsfpz27[address] [place] [address]DrLydia Barragan WBC 30.2 103/ul Critically high 4.0-11.0 [facility] Comment on above: Result Comment: test repeated critical value verified Performed By: #### C OMID ####[facility] Vspymrupyw85[address] [place] [address]DrLydia Barragan CULTURE BLOODon 03-22-2022 Microscopic examination of blood, culture Culture Observations: NO GROWTH AT 5 DAYS. Normal [facility] Comment on above: Performed By: #### B LDCX2 ####[facility] Qtvqlmidto10[address] [place] [phone] Barragan Performed By: #### B LDCX1 ####[facility] Mvrzyljssf80[address] [place] [address]DrLydia Barragan [facility]on SARS-CoV-2 (COVID-19) RNA MATTHEW+probe Ql (Unsp spec) Not detected Normal NOT DETECTED [facility] Comment on above: Result Comment: When [...] for this test is supported by the [place] of Health and Human Service's declaration that [...] be used). Performed By: #### C VDTBH ####[facility] Acpboadwtj[address] [place], [place] [address]Dr. Bhavani Barragan ER URINE PROFILEon 2 Bilirubin Ql (U) MODERATE Abnormal NEGATIVE The [facility] Comment on above: Performed By: #### U MICRO, ERUR ####[facility] Vtczvnqkks[address] [place], [place] [address]Dr. Bhavani Barragan Clarity (U) CLEAR Normal CLEAR [facility] Comment on above: Performed By: #### U MICRO, ERUR ####[facility] Jappxprxsq[address] [place], [place] [address]Dr. Bhavani Barragan Color (U) YELLOW Normal YELLOW [facility] Comment on above: Performed By: #### U MICRO, ERUR ####[facility] Bwsxezasrs[address] [place], [place] [address]Dr. Bhavani Barragan ERUAHD A micrscopic examination will be performed if indicated. Normal [facility] Comment on above: Performed By: #### U MICRO, ERUR ####[facility] Kgehcdvimz[address] [place], [place] [address]Dr. Bhavani Barragan Glucose Ql (U) Negative Normal NEGATIVE [facility] Comment on above: Performed By: #### U MICRO, ERUR ####[facility] Pdtshumhhd[address] [place], [place] [address]Dr. Bhavani Barragan Hemoglobin Ql (U) TRACE-INTACT Abnormal NEGATIVE [facility] Comment on above: Performed By: #### U MICRO, ERUR ####[facility] Jkgikbhyox[address] [place], [place] [address]Dr. Bhavani Barragan Ketones Ql (U) Negative Normal NEGATIVE [facility] Comment on above: Performed By: #### U MICRO, ERUR ####[facility] Glqfebayec[address] [place] [address]Dr. Bhavani Barragan LEUKOCYTES LARGE Abnormal NEGATIVE [facility] Comment on above: Performed By: #### U MICRO, ERUR ####[facility] Pezskfsaeu[address] [place], [place] [address]Dr. Bhavani Barragan Nitrite Ql (U) Negative Normal NEGATIVE [facility] Comment on above: Performed By: #### U MICRO, ERUR ####[facility] Dzmbyflnqm[address] [place], [place] [address]Dr. Bhavani Barragan pH (U) 5.5 [pH] Normal 5-9 [facility] Comment on above: Performed By: #### U MICRO, ERUR ####[facility] Jwueovdvgt[address] [place], [place] [address]Dr. Bhavani Barragan Protein (U) [Mass/Vol] 30 mg/dL Abnormal NEGATIVE/ TRACE [facility] Comment on above: Performed By: #### U MICRO, ERUR ####[facility] Pbucjpvdqq[address] [place], [place] [address]Dr. Bhavani Barragan SPEC GRAVITY 1.020 Normal 1.005-<=1.[address] [place] [address] Comment on above: Performed By: #### U MICRO, ERUR ####[facility] Ifkmsnwkjy[address] [place], [place] [address]Dr. Bhavani Barragan UR MICRO IND INDICATED Normal [facility] Comment on above: Performed By: #### U MICRO, ERUR ####[facility] Hvjchomblk[address] [place], [place] [address]Dr. Bhavani Barragan Urobilinogen Qn (U) 4 {Ridge'U}/dL Abnormal 0.2 - 1.0 [facility] Comment on above: Performed By: #### U MICRO, ERUR ####[facility] Pxtwxkcbzj[address] [place], [place] [address]Dr. Bhavani Barragan LACTATE/LACTIC ACIDon 2021 Lactate [Moles/Vol] 0.9 mmol/L Normal 0.4-2.0 [facility] Comment on above: Performed By: #### L ACT ####[facility] Fodmktlztg[address] [place] [address]Dr. Bhavani Barragan Lactate [Moles/Vol] 1.2 mmol/L Normal 0.4-2.0 [facility] Comment on above: Performed By: #### L ACT ####[facility] Axbnmmghai0099 [place] [address]Dr. Bhavani Barragan POINT OF CARE GLUCOSEon Glucose [Mass/Vol] 188 mg/dL Critically high 74-106 [facility] Comment on above: Performed By: #### P OCGLUC ####[facility] Zaflhcrzop[address] [place], [place] [address]Dr. Bhavani Barragan PROF 14(COMP METB)on 022 Albumin [Mass/Vol] 2.9 g/dL Critically low 3.4-5.0 [facility] Comment on above: Performed By: #### C MP ####[facility] Lspcnpfsgv[address] [place], [place] [address]Dr. Bhavani Barragan Albumin/Globulin [Mass ratio] 0.7 {ratio} [facility] Comment on above: Performed By: #### C MP ####[facility] Oxtaxqkwem4[address] [place] [address]Dr. Bhavani Barragan ALP [Catalytic activity/Vol] 372 U/L Critically high 46-116 [facility] Comment on above: Performed By: #### C MP ####[facility] Ovmqwjvnew25[address] [place] [address]Dr. Bhavani Barragan ALT [Catalytic activity/Vol] 402 U/L Critically high 14-59 [facility] Comment on above: Performed By: #### C MP ####[facility] Fpflorjzuk[address] [place] [address]Dr. Bhavani Barragan Anion gap [Moles/Vol] 10.6 mmol/L Normal [facility] Comment on above: Performed By: #### C MP ####[facility] Nemgfllemo17[address] [place] [address]Dr. Bhavani Barragan AST [Catalytic activity/Vol] 346 U/L Critically high 15-37 [facility] Comment on above: Performed By: #### C MP ####[facility] Ixrrctlehp9086 [place] [address]Dr. Bhavani Barragan Bilirubin [Mass/Vol] 2.8 mg/dL Critically high 0.2-1.0 [facility] Comment on above: Performed By: #### C MP ####[facility] Qtbgozyppz[address] [place], [place] [address]Dr. Bhavani Barragan Calcium [Mass/Vol] 7.9 mg/dL Critically low 8.5-10.1 Th e [facility] Comment on above: Performed By: #### C MP ####[facility] Eseriwhebx43[address] [place], [place] [address]Dr. Bhavani Barragan Chloride [Moles/Vol] 106 mmol/L Normal 98-107 [facility] Comment on above: Performed By: #### C MP ####[facility] Gcvpkzwkxc[address] [place], [place] [address]Dr. Bhavani Barragan CO2 [Moles/Vol] 23.5 mmol/L Normal 21.0-32.0 [facility] Comment on above: Performed By: #### C MP ####[facility] Kh[address]mswkzva[address] [place], [place] [address]Dr. Bhavani Barragan Creatinine [Mass/Vol] 1.57 mg/dL Critically high 0.55-1.02 [facility] Comment on above: Performed By: #### C MP ####[facility] Pohhyzgfzw[address] [place] [address]Dr. Bhavani Barragan EGFR-AF ALBANIAN 38 mL/min/1.73m2 Critically low >=60 [facility] Comment on above: Performed By: #### C MP ####[facility] Phgrggnurk[address] [place], [place] [address]Dr. Bhavani Barragan EGFR-NON AF ALBANIAN 32 mL/min/1.73m2 Critically low >=60 [facility] Comment on above: Performed By: #### C MP ####[facility] Ydxysiashm[address]39 [place] [address]Dr. Bhavani Barragan Globulin (S) [Mass/Vol] 4.0 g/dL Normal [facility] Comment on above: Performed By: #### C MP ####[facility] Xdsknyvoss[address] [place], [place] [address]Dr. Bhavani Barragan Glucose [Mass/Vol] 151 mg/dL Critically high 74-106 T [facility] Comment on above: Performed By: #### C MP ####[facility] Cigdzeatvl[address] [place], [place] [address]Dr. Bhavani Barragan Potassium [Moles/Vol] 4.1 mmol/L Normal 3.5-5.1 [facility] Comment on above: Performed By: #### C MP ####[facility] Hvbheuizlw[address] [place], [place] [address]Dr. Bhavani Barragan Protein [Mass/Vol] 6.9 g/dL Normal 6.4-8.[address] [facility] Comment on above: Performed By: #### C MP ####[facility] Hmfhvwdxwx[address] [place], [place] [address]Dr. Bhavani Barragan Sodium [Moles/Vol] 136 mmol/L Normal 136-145 [facility] Comment on above: Performed By: #### C MP ####[facility] Tnbindobnm[address] [place], [place] [address]Dr. Bhavani Barragan Urea nitrogen [Mass/Vol] 23.0 mg/dL Critically high 7.0-18.0 [facility] Comment on above: Performed By: #### C MP ####[facility] Yhzepjdnvk[address] [place], [place] [address]Dr. Bhavani Barragan Urea nitrogen/Creatinine [Mass ratio] 14.6 mg/mg Normal [facility] Comment on above: Performed By: #### C MP ####[facility] Aoxmplynra[address] [place], [place] [address]Dr. Bhavani Barragan URINE MICROSCOPIC ONLYon BACTERIA LARGE Abnormal NONE SEEN [facility] Comment on above: Performed By: #### U MICRO, ERUR ####[facility] Vzosbpqjce[address] [place], [place] [address]Dr. Bhavani Barragan Bacteria identified Cx Nom (U) INDICATED Normal [facility] Comment on above: Performed By: #### U MICRO, ERUR ####[facility] H[address]qawvivs[address] [place] [address]Dr. Bhavani Barragan CAST NONE SEEN Normal NONE SEEN [facility] Comment on above: Performed By: #### U MICRO, ERUR ####[facility] Ujgwubrwxw38[address] [place] [address]Dr. Bhavani Barragan Crystals LM Nom (Urine sed) NONE SEEN Normal NONE SEEN [facility] Comment on above: Performed By: #### U MICRO, ERUR ####[facility] Qwmtnpwkxd1448 [place] [address]Dr. Bhavani Barragan Epithelial cells LM Ql (Urine sed) FEW Abnormal NONE SEEN /RARE [facility] Comment on above: Performed By: #### U MICRO, ERUR ####[facility] [address]qknpcxbo[address] [place] [address]Dr. Bhavani Barragan MUCOUS NONE SEEN Normal NONE SEEN [facility] Comment on above: Performed By: #### U MICRO, ERUR ####[facility] Sitabhxknr[address] [place] [address]Dr. Bhavani Barragan RBC 2-5 Abnormal 0-2 [facility] Comment on above: Performed By: #### U MICRO, ERUR ####[facility] Dlalczvvbk[address] [place] [address]Dr. Bhavani Barragan WBC (U) [#/Vol] /uL Abnormal NONE SEEN [facility] Comment on above: Performed By: #### U MICRO, ERUR ####[facility] Frraykibzt[address] [place] [address]Dr. Bhavani Barragan US SINGLE QUAD RT UPPERon US SINGLE QUAD RT UPPER Normal [facility] XR CHEST 1 Von 03-22-2022 XR CHEST 1 V Normal [facility] CBC AND ELECTRONIC DIFFon Basophils (Bld) [#/Vol] 0.23 10*3/uL High 0.00-0.15 [facility] Comment on above: Performed By: #### R ETIC, [id number] #### [facility] (DEFAULT) [address] [place] [address] Basophils/100 WBC (Bld) 0.9 % Normal [facility] Comment on above: Performed By: #### R ETIC, [id number] #### [facility] (DEFAULT) [address] [place] [address] DIFF STATUS Electronic Differential Normal [facility] Comment on above: Performed By: #### R ETIC, [id number] #### [facility] (DEFAULT) [address] [place] [address] Eosinophils (Bld) [#/Vol] 10*3/uL Normal 0.00-0.42 [facility] Comment on above: Performed By: #### R ETIC, [id number] #### [facility] (DEFAULT) [address] [place] [address] Eosinophils/100 WBC (Bld) 0.0 % Normal [facility] Comment on above: Performed By: #### R ETIC, [id number] #### [facility] (DEFAULT) [address] [place] [address]67 Hematocrit (Bld) [Volume fraction] 52.1 % High 34.9-44.3 [facility] Comment on above: Performed By: #### R ETIC, [id number] #### [facility] (DEFAULT) [address] [place] [address] Hemoglobin (Bld) [Mass/Vol] 16.8 g/dL High 11.4-15.2 [facility] Comment on above: Performed By: #### R ETIC, [id number] #### [facility] (DEFAULT) [address] [address] Immature Grans % 1.3 % Normal [facility] Comment on above: Performed By: #### R ETIC, [id number] #### [facility] (DEFAULT) [address] [place] [address] 14020 Immature Grans Absolute 0.34 K/uL High <=0.09 [facility] Comment on above: Performed By: #### R ETIC, [id number] #### [facility] (DEFAULT) [address] [place] [address]53 Lymphocytes (Bld) [#/Vol] 1.24 10*3/uL Normal 1.16-3.51 [facility] Comment on above: Performed By: #### R ETIC, [id number] #### [facility] (DEFAULT) [address] [place] [address] 71360 Lymphocytes/100 WBC (Bld) 4.9 % Normal [facility] Comment on above: Performed By: #### R ETIC, [id number] #### [facility] (DEFAULT) [address] [address] MCV (RBC) [Entitic vol] 97.4 fL Normal 79.6-97.7 [facility] Comment on above: Performed By: #### R ETIC, [id number] #### [facility] (DEFAULT) [address] [place] [address]2579 Mean Cell Hgb 31.4 pg Normal 25.9-33.9 [facility] Comment on above: Performed By: #### R ETIC, [id number] #### [facility] (DEFAULT) [address] [address] Mean Cell Hgb Conc 32.2 g/dL Normal 31.4-35.9 [facility] Comment on above: Performed By: #### R ETIC, [id number] #### [facility] (DEFAULT) [address] [place] [address] 08299 Monocytes (Bld) [#/Vol] 0.47 10*3/uL Normal 0.22-0.87 [facility] Comment on above: Performed By: #### R ETIC, [id number] #### [facility] (DEFAULT) [address] [place] [address]646 Monocytes/100 WBC (Bld) 1.9 % Normal [facility] Comment on above: Performed By: #### R ETIC, [id number] #### [facility] (DEFAULT) [address] [address] Nucleated RBC 0.1 /100 WBC Normal <=0.2 [place] Comment on above: Performed By: #### R ETIC, [id number] #### [facility] (DEFAULT) [address] [address] Platelet mean volume (Bld) [Entitic vol] 11.1 fL Normal 8.5-12.2 [facility] Comment on above: Performed By: #### R KELLYC, [id number] #### [facility] (DEFAULT) [address] [address] Platelets (Bld) [#/Vol] 174 10*3/uL Normal 150-393 [facility] Comment on above: Performed By: #### R ETIC, [id number] #### [facility] (DEFAULT) [address] [address] RBC (Bld) [#/Vol] 5.35 10*6/uL High 3.91-5.04 [facility] Comment on above: Performed By: #### R ETIC, [id number] #### [facility] (DEFAULT) [address] [address] RBC Distribution 16.3 % High 10.8-14.9 [facility] Comment on above: Performed By: #### R ETIC, [id number] #### [facility] (DEFAULT) [address] [address] Segs + Bands Auto 91.0 % Normal [facility] Comment on above: Performed By: #### R ETIC, [id number] #### [facility] (DEFAULT) [address] [address] Segs + Bands,Absolute Auto 23.08 K/uL High 1.64-7.28 [facility] Comment on above: Performed By: #### R ETIC, [id number] #### [facility] (DEFAULT) [address] [place] [address] WBC (Bld) [#/Vol] 25.37 10*3/uL High 3.99-11.19 [facility] Comment on above: Performed By: #### R KERLINE, [id number] #### [facility] (DEFAULT) [address] [place] [address] CMPN WITHOUT GLUCOSEon 11-02 Albumin [Mass/Vol] 4.3 g/dL Normal 3.5-5.0 [facility] Comment on above: Performed By: #### C MPNG #### [facility] (DEFAULT) [address] [place] [address] ALP [Catalytic activity/Vol] 80 U/L Normal 32-126 [facility] Comment on above: Performed By: #### C MPNG #### [facility] (DEFAULT) [address] [place] [address]77 ALT [Catalytic activity/Vol] 8 U/L Low 9-48 [facility] Comment on above: Performed By: #### C MPNG #### [facility] (DEFAULT) [address] [place] [address] Anion gap [Moles/Vol] 13 mmol/L Normal 7-17 [facility] Comment on above: Performed By: #### C MPNG #### [facility] (DEFAULT) [address] [place] [address] 9[address]66 AST [Catalytic activity/Vol] 14 U/L Normal 14-40 [facility] Comment on above: Performed By: #### C MPNG #### [facility] (DEFAULT) [address] [address] Bilirubin [Mass/Vol] 0.5 mg/dL Normal <1.5 [facility] Comment on above: Performed By: #### C MPNG #### [facility] (DEFAULT) [address] [place] [address] Calcium [Mass/Vol] 9.1 mg/dL Normal 8.6-10.5 [facility] Comment on above: Performed By: #### C MPNG #### [facility] (DEFAULT) [address] [place] [address] Chloride [Moles/Vol] 108 mmol/L Normal 98-108 [facility] Comment on above: Performed By: #### C MPNG #### [facility] (DEFAULT) [address] [place] [address] 48099 CO2 [Moles/Vol] 21 mmol/L Low 22-30 [place] Comment on above: Performed By: #### C MPNG #### [facility] (DEFAULT) [address] [place] [address] Creatinine [Mass/Vol] 1.36 mg/dL High 0.50-1.20 [facility] Comment on above: Performed By: #### C MPNG #### [facility] (DEFAULT) [address] [place] [address] EST GFR, 45 mL/min/1.73sqM Low >=60 [facility] Comment on above: Performed By: #### C MPNG #### [facility] (DEFAULT) [address] [place] [address] EST GFR,Non 37 mL/min/1.73sqM Low >=60 [facility] Comment on above: Performed By: #### C MPNG #### [facility] (DEFAULT) [address] [place] [address] Potassium [Moles/Vol] 5.0 mmol/L Normal 3.5-5.0 [facility] Comment on above: Performed By: #### C MPNG #### [facility] (DEFAULT) [address] [place] [address] Protein [Mass/Vol] 7.6 g/dL Normal 6.4-8.3 [facility] Comment on above: Performed By: #### C MPNG #### [facility] (DEFAULT) [address] [place] [address] Sodium [Moles/Vol] 137 mmol/L Normal 133-143 [facility] Comment on above: Performed By: #### C MPNG #### [facility] (DEFAULT) [address] [place] [address]42 Urea nitrogen [Mass/Vol] 42 mg/dL High 06-08 [facility] Comment on above: Performed By: #### C MPNG #### [facility] (DEFAULT) [address] [place] [address] Urea nitrogen/Creatinine [Mass ratio] 31 mg/mg Normal [facility] Comment on above: Performed By: #### C MPNG #### [facility] (DEFAULT) [address] [place] [address] FERRITINon 11-02-2021 Ferritin [Mass/Vol] 19.2 ng/mL Normal 10.0-291.0 [facility] Comment on above: Performed By: #### F ERIB #### [facility] (DEFAULT) [address] [place] [address] RETICULOCYTESon 11-02-2021 Retic Absolute 0.1177 M/uL High 0.0324-0.114 2 [facility] Comment on above: Performed By: #### R ETIC, [id number] #### [facility] (DEFAULT) [address] [place] [address] Retic Count 2.20 % Normal 0.74-2.54 [facility] Comment on above: Performed By: #### R ETIC, [id number] #### [facility] (DEFAULT) [address] [place] [address] CBC AND ELECTRONIC DIFFon Basophils (Bld) [#/Vol] 0.20 10*3/uL High 0.00-0.15 [facility] Comment on above: Performed By: #### L [id number] #### [facility] (DEFAULT) [address] [place] [address] Basophils/100 WBC (Bld) 0.9 % Normal [facility] Comment on above: Performed By: #### L [id number] #### [facility] (DEFAULT) [address] [place] [address] DIFF STATUS Electronic Differential Normal [facility] Comment on above: Performed By: #### L [id number] #### [facility] (DEFAULT) [address] [place] [address] Eosinophils (Bld) [#/Vol] 10*3/uL Normal 0.00-0.42 [facility] Comment on above: Performed By: #### L [id number] #### [facility] (DEFAULT) [address] [place] [address] Eosinophils/100 WBC (Bld) 0.1 % Normal [facility] Comment on above: Performed By: #### L [id number] #### [facility] (DEFAULT) [address] [place] [address] Hematocrit (Bld) [Volume fraction] 47.4 % High 34.9-44.3 [facility] Comment on above: Performed By: #### L [id number] #### [facility] (DEFAULT) [address] [place] [address] Hemoglobin (Bld) [Mass/Vol] 15.4 g/dL High 11.4-15.2 [facility] Comment on above: Performed By: #### L AB980 #### [facility] (DEFAULT) [address] [place] [address] Immature Grans % 3.0 % Normal [facility] Comment on above: Performed By: #### L [id number] #### [facility] (DEFAULT) [address] [place] [address] Immature Grans Absolute 0.67 K/uL High <=0.09 [facility] Comment on above: Performed By: #### L [id number] #### [facility] (DEFAULT) [address] [place] [address] Lymphocytes (Bld) [#/Vol] 1.12 10*3/uL Low 1.16-3.51 [facility] Comment on above: Performed By: #### L [id number] #### [facility] (DEFAULT) [address] [place] [address] Lymphocytes/100 WBC (Bld) 5.0 % Normal [facility] Comment on above: Performed By: #### L [id number] #### [facility] (DEFAULT) [address] [address] MCV (RBC) [Entitic vol] 101.5 fL High 79.6-97.7 [facility] Comment on above: Performed By: #### L [id number] #### [facility] (DEFAULT) [address] [address] Mean Cell Hgb 33.0 pg Normal 25.9-33.9 [facility] Comment on above: Performed By: #### L [id number] #### [facility] (DEFAULT) [address] [address] Mean Cell Hgb Conc 32.5 g/dL Normal 31.4-35.9 [facility] Comment on above: Performed By: #### L AB980 #### [facility] (DEFAULT) [address] [address] Monocytes (Bld) [#/Vol] 0.51 10*3/uL Normal 0.22-0.87 [facility] Comment on above: Performed By: #### L [id number] #### [facility] (DEFAULT) [address] [address] Monocytes/100 WBC (Bld) 2.3 % Normal [facility] Comment on above: Performed By: #### L [id number] #### [facility] (DEFAULT) [address] [address] Nucleated RBC 0.1 /100 WBC Normal <=0.2 [place] Comment on above: Performed By: #### L [id number] #### [facility] (DEFAULT) [address] [address] Platelet mean volume (Bld) [Entitic vol] 10.4 fL Normal 8.5-12.2 [facility] Comment on above: Performed By: #### L [id number] #### [facility] (DEFAULT) [address] [address] Platelets (Bld) [#/Vol] 289 10*3/uL Normal 150-393 [facility] Comment on above: Performed By: #### L [id number] #### [facility] (DEFAULT) [address] [address] RBC (Bld) [#/Vol] 4.67 10*6/uL Normal 3.91-5.04 [facility] Comment on above: Performed By: #### L [id number] #### [facility] (DEFAULT) [address] [address] RBC Distribution 14.8 % Normal 10.8-14.9 [facility] Comment on above: Performed By: #### L [id number] #### [facility] (DEFAULT) [address] [address] Segs + Bands Auto 88.7 % Normal [facility] Comment on above: Performed By: #### L [id number] #### [facility] (DEFAULT) [address] [address] Segs + Bands,Absolute Auto 20.03 K/uL High 1.64-7.28 [facility] Comment on above: Performed By: #### L [id number] #### [facility] (DEFAULT) [address] [address] WBC (Bld) [#/Vol] 22.56 10*3/uL High 3.99-11.19 [facility] Comment on above: Performed By: #### L [id number] #### [facility] (DEFAULT) [address] [place] [address] IMMUNOPHENOTYPING,PERIPH BLO ODon 08-17-2021 BKR DX CODE Use Ordering Normal [facility] Comment on above: Order Comment: IMMUN OPHENOTYPING DIAGNOSIS PATIENT NAME: MARÍA ELENA TAFOYA : 1940 ACCN#: [id number] REVIEWED BY: LAURA Moreno [id number] SAMPLE TYPE: Peripheral Blood LABORATORY INTERPRETATION: There [...] % are B cells (CD19+) with a [place]:Lambda ratio of 2:2 , 73.5 % are T cells (CD3+) with a CD4:CD8 ratio of 2.2 and an absolute CD4+/CD3+ count of 549 ABS/mm3 and 23.7 % are NK cells (positive for CD56 and/or CD16 and negative for CD3). ==== MARKER DESCRIPTION LYM REG% ABS/mm3 NORMAL % NML ABS ==== ABSOLUTE LYMPHOCYTE COUNT [phone] ==== CD19+ B CELL 4.4 49 2.0-21.0 [...] determined The Flow Cytometry Laboratory at [facility]. It has not been cleared or approved by the FDA. This laboratory is certified under the Clinical Laboratory Improvement Amendments (CLIA) as qualified to perform high complexity clinical laboratory testing. This test is used for clinical purposes. It should not be regarded as investigational or for research. The [facility] Flow Cytometry Laboratory lower limit of CLL MRD detection is 0.1% of the gated lymphocytes. Performed By: #### P BIPP #### [facility] (DEFAULT) [address] [place] [address] Flow Interpretation See Comment Normal [facility] Comment on above: Order Comment: IMMUN OPHENOTYPING DIAGNOSIS PATIENT NAME: MARÍA ELENA TAFOYA : 1940 ACCN#: [id number] REVIEWED BY: LAURA Moreno [id number] SAMPLE TYPE: Peripheral Blood LABORATORY INTERPRETATION: There [...] % are B cells (CD19+) with a [place]:Lambda ratio of 2:2 , 73.5 % are T cells (CD3+) with a CD4:CD8 ratio of 2.2 and an absolute CD4+/CD3+ count of 549 ABS/mm3 and 23.7 % are NK cells (positive for CD56 and/or CD16 and negative for CD3). ==== MARKER DESCRIPTION LYM REG% ABS/mm3 NORMAL % NML ABS ==== ABSOLUTE LYMPHOCYTE COUNT [phone] ==== CD19+ B CELL 4.4 49 2.0-21.0 [...] determined The [facility]ometry Laboratory at [facility]. It has not been cleared or approved by the FDA. This laboratory is certified under the Clinical Laboratory Improvement Amendments (CLIA) as qualified to perform high complexity clinical laboratory testing. This test is used for clinical purposes. It should not be regarded as investigational or for research. The [facility] Flow Cytometry Laboratory lower limit of CLL MRD detection is 0.1% of the gated lymphocytes. Performed By: #### P BIPP #### [facility] (DEFAULT) [address] [place] [address] Flow Interpreted by: Efrem Charlton MD [facility] Comment on above: Order Comment: IMMUN OPHENOTYPING DIAGNOSIS PATIENT NAME: MARÍA ELENA TAFOYA : 1940 ACCN#: [id number] REVIEWED BY: LAURA Moreno [id number] SAMPLE TYPE: Peripheral Blood LABORATORY INTERPRETATION: There [...] % are B cells (CD19+) with a [place]:Lambda ratio of 2:2 , 73.5 % are T cells (CD3+) with a CD4:CD8 ratio of 2.2 and an absolute CD4+/CD3+ count of 549 ABS/mm3 and 23.7 % are NK cells (positive for CD56 and/or CD16 and negative for CD3). ==== MARKER DESCRIPTION LYM REG% ABS/mm3 NORMAL % NML ABS ==== ABSOLUTE LYMPHOCYTE COUNT [phone] ==== CD19+ B CELL 4.4 49 2.0-21.0 [...] determined The Flow Cytometry Laboratory at [facility]. It has not been cleared or approved by the FDA. This laboratory is certified under the Clinical Laboratory Improvement Amendments (CLIA) as qualified to perform high complexity clinical laboratory testing. This test is used for clinical purposes. It should not be regarded as investigational or for research. The [facility] Flow Cytometry Laboratory lower limit of CLL MRD detection is 0.1% of the gated lymphocytes. Performed By: #### P BIPP #### [facility] (DEFAULT) [address] [address] [id number] MUTATION DETECTION , BLOODon 08-17-2021 Receiving Status Accessioned in Lab Normal [facility] Comment on above: Performed By: #### J AK2B #### [facility] (DEFAULT) [address] [place] [address] Performed By: #### B CRSCR #### [facility] (DEFAULT) [address] [place] [address] CBC with Differentialon 01-17 Basophils (Bld) [#/Vol] 0.20 thou/mcL Normal 0.00-0.20 [facility] Comment on above: Performed By: #### 5 7021-8 #### [facility] [address] [place] [address] Basophils/100 WBC (Bld) 0.9 % Normal 0.0-2.0 [facility] Comment on above: Performed By: #### 5 7021-8 #### [facility] [address] [place] [address] Eosinophils (Bld) [#/Vol] 0.00 thou/mcL Normal 0.00-0.70 [facility] Comment on above: Performed By: #### 5 7021-8 #### [facility] [address] [place] [address] Eosinophils/100 WBC (Bld) 0.1 % Normal 0.0-7.0 [facility] Comment on above: Performed By: #### 5 7021-8 #### [facility] [address] [place] [address] Erythrocyte distribution width (RBC) [Entitic vol] 17.1 % High 11.0-14.8 [facility] Comment on above: Performed By: #### 5 7021-8 #### [address] [address] Hematocrit (Bld) [Volume fraction] 36.3 % Normal 35.0-45.0 [facility] Comment on above: Performed By: #### 5 7021-8 #### [address] [address] Hemoglobin (Bld) [Mass/Vol] 11.8 g/dL Low 12.0-16.0 [facility] Comment on above: Performed By: #### 5 7021-8 #### [address] [address] Lymphocytes (Bld) [#/Vol] 1.40 thou/mcL Normal 1.00-4.80 [facility] Comment on above: Performed By: #### 5 7021-8 #### [address] [address] Lymphocytes/100 WBC (Bld) 7.1 % Low 22.0-44.0 [facility] Comment on above: Performed By: #### 5 7021-8 #### [address] [address] MCH (RBC) [Entitic mass] 33.0 Picograms Normal 27.0-34.0 [facility] Comment on above: Performed By: #### 5 7021-8 #### [address] [address] MCHC (RBC) [Mass/Vol] 32.5 g/dL Normal 32.0-36.0 [facility] Comment on above: Performed By: #### 5 7021-8 #### [address] [address] MCV (RBC) [Entitic vol] 101.7 fL High 80.0-97.0 [facility] Comment on above: Performed By: #### 5 7021-8 #### [address] [address] Monocytes (Bld) [#/Vol] 0.50 thou/mcL Normal 0.00-0.90 [facility] Comment on above: Performed By: #### 5 7021-8 #### [facility] [address] [place] [address] Monocytes/100 WBC (Bld) 2.7 % Normal 0.0-12.0 [facility] Comment on above: Performed By: #### 5 7021-8 #### [facility] [address] [place] [address] Neutrophils (Bld) [#/Vol] 18.10 thou/mcL High 1.80-7.70 [facility] Comment on above: Performed By: #### 5 7021-8 #### [facility] [address] [place] [address] Neutrophils/100 WBC (Bld) 89.2 % High 40.0-70.0 [facility] Comment on above: Performed By: #### 5 7021-8 #### [facility] [address] [place] [address] Platelet mean volume (Bld) [Entitic vol] 8.2 fL Normal 6.2-12.1 [facility] Comment on above: Performed By: #### 5 7021-8 #### [facility] [address] [place] [address] Platelets (Bld) [#/Vol] 355 thou/mcL Normal 142-424 [facility] Comment on above: Performed By: #### 5 7021-8 #### [facility] [address] [place] [address] RBC (Bld) [#/Vol] 3.57 million/mcL Low 3.80-5.10 [facility] Comment on above: Performed By: #### 5 7021-8 #### [facility] [address] [place] [address] WBC (Bld) [#/Vol] 20.3 thou/mcL High 4.6-10.2 [facility] Comment on above: Performed By: #### 5 7021-8 #### [facility] [address] [place] [address] Ammoniaon 09-27-2020 Ammonia (P) [Mass/Vol] 21 umol/L Normal 9-30 [facility] Comment on above: Order Comment: Items in this order include: Ammonia Testing Performed By: [facility] [address] [place] [address]. [place] [address] Dr. Donnie Jean, Poultry Picker Items in this order include: Ammonia Testing Performed By: [facility] [address] [place], [place] [id number] Dr. Donnie Jean, Poultry Picker Performed By: #### C 709 #### [facility] [address] [place] [address] [place] [address] B12/Folateon 09-27-2020 Cobalamin (Vitamin B12) [Mass/Vol] 683 pg/mL Normal 239-931 [facility] Comment on above: Order Comment: Items in this order include: Culture, Urine Testing Performed By: [facility] [address] [place] [address] [address] [address] Donnie Jean, Poultry Picker Result Comment: Plea se note: Over the counter high dose supplements of Biotin that are 20 to 300 times greater than the adequate daily intake of 30 mcg/day for adults may cause a bias of 10% or more to be observed in the measured Vitamin B-12 concentrations. Performed By: #### C 734 #### [facility] [address] [place] [address] [address] [place] [address] Folate 9.26 ng/mL Normal 2.80-20.00 [facility] Comment on above: Order Comment: Items in this order include: Culture, Urine Testing Performed By: [facility] [address] [place] [address] [address] Donnie Jean, Poultry Picker Result Comment: Plea se note: Over the counter high dose supplements of Biotin that are 20 to 300 times greater than the adequate daily intake of 30 mcg/day for adults may cause a bias of 10% or more to be observed in the measured Folate concentrations. Performed By: #### C 734 #### [facility] [address] [place] [address] CBC with differentialon 09-18 Erythrocyte distribution width (RBC) [Ratio] 15.4 % Normal 11.5-15.5 [facility] Comment on above: Order Comment: Items in this order include: Culture, Urine Testing Performed By: [facility] [address] [place] [address] Dr. Donnie Jean, Poultry Picker Performed By: #### C 734 #### [facility] [address] [place] [address] Hematocrit (Bld) [Volume fraction] 39.8 % Normal 37.0-47.0 [facility] Comment on above: Order Comment: Items in this order include: Culture, Urine Testing Performed By: [facility] [place] [address] Dr. Donnie Jean, Poultry Picker Performed By: #### C 734 #### [facility] [address] [place] [address] Hemoglobin (Bld) [Mass/Vol] 12.3 g/dL Normal 11.5-15.5 [facility] Comment on above: Order Comment: Items in this order include: Culture, Urine Testing Performed By: [facility] [place] [address] Dr. Donnie Jean, Poultry Picker Performed By: #### C 734 #### [facility] [address] [place] [address] MCH (RBC) [Entitic mass] 34.2 pg High 27.0-31.0 [facility] Comment on above: Order Comment: Items in this order include: Culture, Urine Testing Performed By: [facility] [address] [place] [address] Dr. Donnie Jean, Poultry Picker Performed By: #### C 734 #### [facility] [address] [place] [address] MCHC (RBC) [Mass/Vol] 30.9 g/dL Low 32.0-36.0 [facility] Comment on above: Order Comment: Items in this order include: Culture, Urine Testing Performed By: [facility] [address] [place] [address]. [place] [address] Dr. Donnie Jean, Poultry Picker Performed By: #### C 734 #### [facility] [address] [place] [address] [address] [place] [address] MCV (RBC) [Entitic vol] 110.6 fL High 78.0-100.0 [facility] Comment on above: Order Comment: Items in this order include: Culture, Urine Testing Performed By: [facility] [address] [place] [address]. [place] [address] Dr. Donnie Jean, Poultry Picker Performed By: #### C 734 #### [facility] [address] [place] [address] [address] [place] [address] Platelet mean volume (Bld) [Entitic vol] 10.2 fL Normal 8.9-12.6 [facility] Comment on above: Order Comment: Items in this order include: Culture, Urine Testing Performed By: [facility] [address] [place] [address]. [place] [address] Dr. Donnie Jean, Poultry Picker Performed By: #### C 734 #### [facility] [address] [place] [address] [address] [place] [address] Platelets (Bld) [#/Vol] 423 K CUMM High 130-400 [facility] Comment on above: Order Comment: Items in this order include: Culture, Urine Testing Performed By: [facility] [address] [place] [address]. [place] [address] Dr. Donnie Jean, Poultry Picker Performed By: #### C 734 #### [facility] [address] [place] [address] Rd [address] [place] [address] RBC (Bld) [#/Vol] 3.60 M CUMM Low 3.80-5.10 [facility] Comment on above: Order Comment: Items in this order include: Culture, Urine Testing Performed By: [facility] [address] [place] [address]. [place] [id number] Dr. Donnie Jean, Poultry Picker Performed By: #### C 734 #### [facility], [facility]. [address] [place] [address] [address] [place] [address] WBC (Bld) [#/Vol] 28.2 K CUMM Critically high 3.8-10.6 [facility] Comment on above: Order Comment: Items in this order include: Culture, Urine Testing Performed By: [facility] [address] [place] [address]. [place] [id number] Dr. Donnie Jean, Poultry Picker Performed By: #### C 734 #### [facility], [facility]. [address] [place] [address] [address] [place] [address] Comprehensive Metabolic Pane [facility] 09-27-2020 Albumin [Mass/Vol] 4.4 g/dL Normal 3.5-5.0 [facility] Comment on above: Order Comment: Items in this order include: Comprehensive Metabolic Panel, CBC with differential, TSH w/ reflex to FT4, B12/Folate, , , , Manual Differential if Indicated, Slide Scan, MicroscopeTesting Performed By: [facility] [address] [place] [address]. [place] [address] Dr. Donnie Jean, Poultry Picker Performed By: #### C 709 #### [facility], [facility]. [address] [place] [address] [address] [place] [address] Alk Phos 68 U/L Normal 23-159 [facility] Comment on above: Order Comment: Items in this order include: Comprehensive Metabolic Panel, CBC with differential, TSH w/ reflex to FT4, B12/Folate, , , , Manual Differential if Indicated, Slide Scan, MicroscopeTesting Performed By: [facility] [address] [place] [address]. [place] [address] Dr. Donnie Jean, Poultry Picker Performed By: #### C 709 #### [facility], [facility]. [address] [place] [address] [address] [place] [address] ALT [Catalytic activity/Vol] 15 U/L Normal 0-38 [facility] Comment on above: Order Comment: Items in this order include: Comprehensive Metabolic Panel, CBC with differential, TSH w/ reflex to FT4, B12/Folate, , , , Manual Differential if Indicated, Slide Scan, MicroscopeTesting Performed By: [facility] [address] [place] [address]. [place] [address] Dr. Donnie Jean, Poultry Picker Performed By: #### C 709 #### [facility], [facility]. [address] [place] [address] [address] [place] [address] AST [Catalytic activity/Vol] 21 U/L Normal 11-43 [facility] Comment on above: Order Comment: Items in this order include: Comprehensive Metabolic Panel, CBC with differential, TSH w/ reflex to FT4, B12/Folate, , , , Manual Differential if Indicated, Slide Scan, MicroscopeTesting Performed By: [facility] [address] [place] [address] [address] Donnie Jean, Poultry Picker Performed By: #### C 709 #### [facility], [facility]. [address] [place] [address] [address] [place] [address] Bilirubin [Mass/Vol] 0.5 mg/dL Normal 0.2-1.3 [facility] Comment on above: Order Comment: Items in this order include: Comprehensive Metabolic Panel, CBC with differential, TSH w/ reflex to FT4, B12/Folate, , , , Manual Differential if Indicated, Slide Scan, MicroscopeTesting Performed By: [facility] [address] [place] [address] [address] [address] Donnie Jean, Poultry Picker Performed By: #### C 709 #### [facility], [facility]. [address] [place] [address] [address] [place] [address] Calcium [Mass/Vol] 9.7 mg/dL Normal 8.5-10.[address] [facility] Comment on above: Order Comment: Items in this order include: Comprehensive Metabolic Panel, CBC with differential, TSH w/ reflex to FT4, B12/Folate, , , , Manual Differential if Indicated, Slide Scan, MicroscopeTesting Performed By: [facility] [address] [place] [address] Dr. Donnie Jean, Poultry Picker Performed By: #### C 709 #### [facility] [address] [place] [address] [address] [place] [address] Chloride [Moles/Vol] 111 mmol/L High 98-107 [facility] Comment on above: Order Comment: Items in this order include: Comprehensive Metabolic Panel, CBC with differential, TSH w/ reflex to FT4, B12/Folate, , , , Manual Differential if Indicated, Slide Scan, MicroscopeTesting Performed By: [facility] [address] [place] [address] Dr. Donnie Jean, Poultry Picker Performed By: #### C 709 #### [facility], [facility]. [address] [place] [address] [address] [place] [address] CO2 [Moles/Vol] 16.0 mmol/L Low 21.0-32.0 [facility] Comment on above: Order Comment: Items in this order include: Comprehensive Metabolic Panel, CBC with differential, TSH w/ reflex to FT4, B12/Folate, , , , Manual Differential if Indicated, Slide Scan, MicroscopeTesting Performed By: [facility] [address] [place] [address] Dr. Donnie Jean, Poultry Picker Performed By: #### C 709 #### [facility], [facility]. [address] [place] [address] [address] [place] [address] Creatinine [Mass/Vol] 1.6 mg/dL High 0.1-1.2 [facility] Comment on above: Order Comment: Items in this order include: Comprehensive Metabolic Panel, CBC with differential, TSH w/ reflex to FT4, B12/Folate, , , , Manual Differential if Indicated, Slide Scan, MicroscopeTesting Performed By: [facility] [address] [place] [address] [address] [address] Donnie Jean, Poultry Picker Performed By: #### C 709 #### [facility], [facility]. [address] [facility] [place] [address] GFR/1.73 sq M.predicted MDRD (S/P/Bld) [Vol rate/Area] 31 mL/min per 1.73 Low >60 [facility] Comment on above: Order Comment: Items in this order include: Comprehensive Metabolic Panel, CBC with differential, TSH w/ reflex to FT4, B12/Folate, , , , Manual Differential if Indicated, Slide Scan, MicroscopeTesting Performed By: [facility] [address] [place] [address] Dr. Donnie Jean, Poultry Picker Result Comment: The GFR estimate is not adjusted for race. If the patient's race is -[place]ub[place], the GFR estimate must be multiplied by a factor of 1.21. Performed By: #### C 709 #### [facility], [facility]. [address] [place] [address] [address] [place] [id number] Glucose [Mass/Vol] 112 mg/dL High 74-100 [facility] Comment on above: Order Comment: Items in this order include: Comprehensive Metabolic Panel, CBC with differential, TSH w/ reflex to FT4, B12/Folate, , , , Manual Differential if Indicated, Slide Scan, MicroscopeTesting Performed By: [facility] [address] [place] [address] Dr. Donnie Jean, Poultry Picker Performed By: #### C 709 #### [facility], [facility]. [address] [place] [address] [place] [address] Potassium [Moles/Vol] 5.4 mmol/L High 3.5-5.3 [facility] Comment on above: Order Comment: Items in this order include: Comprehensive Metabolic Panel, CBC with differential, TSH w/ reflex to FT4, B12/Folate, , , , Manual Differential if Indicated, Slide Scan, MicroscopeTesting Performed By: [facility] [address] [place] [address] [address] [address] Donnie Jean, Poultry Picker Performed By: #### C 709 #### [facility] [address] [place] [address] [address] [place] [address] Protein [Mass/Vol] 7.4 g/dL Normal 6.3-8.4 [facility] Comment on above: Order Comment: Items in this order include: Comprehensive Metabolic Panel, CBC with differential, TSH w/ reflex to FT4, B12/Folate, , , , Manual Differential if Indicated, Slide Scan, MicroscopeTesting Performed By: [facility] [address] [place] [address]. [place] [address] Dr. Donnie Jean, Poultry Picker Performed By: #### C 709 #### [facility], [facility]. [address] [place] [address] [place] [address] Sodium [Moles/Vol] 140 mmol/L Normal 135-145 [facility] Comment on above: Order Comment: Items in this order include: Comprehensive Metabolic Panel, CBC with differential, TSH w/ reflex to FT4, B12/Folate, , , , Manual Differential if Indicated, Slide Scan, MicroscopeTesting Performed By: [facility] [address] [place] [address] [address] [address] Donnie Jean, Poultry Picker Performed By: #### Jany 709 #### [facility], [facility]. [address] [place] [address] [place] [address] Urea nitrogen [Mass/Vol] 40 mg/dL High 6-22 [facility] Comment on above: Order Comment: Items in this order include: Comprehensive Metabolic Panel, CBC with differential, TSH w/ reflex to FT4, B12/Folate, , , , Manual Differential if Indicated, Slide Scan, MicroscopeTesting Performed By: [facility] [address] [place] [address] [address] [address] Donnie Jean, Poultry Picker Performed By: #### C 709 #### [facility], [facility]. [address] [place] [address] [address] [place] [address] Culture, Urineon 09-27-2020 RPT Microbiology results Normal [facility] Comment on above: Order Comment: Items in this order include: Culture, Urine Testing Performed By: [facility] [address] [place] [address], [place] [address] Dr. Donnie Jean, Poultry Picker Result Comment: Kaylee l Result: No growth at 24 hours. Performed By: #### C 734 #### [facility] [address] [place] [address] [address] [place] [address] Manual Differential if Indic atedon 09-27-2020 Anisocytosis Ql (Bld) SLIGHT Normal [facility] Comment on above: Order Comment: Items in this order include: Culture, Urine Testing Performed By: [facility] [address] [place] [address]. [place] [address] Dr. Donnie Jean, Poultry Picker Performed By: #### C 734 #### [facility] [address] [place] [address] [place] [address] Luna Cells SLIGHT Normal [facility] Comment on above: Order Comment: Items in this order include: Culture, Urine Testing Performed By: [facility] [address] [place] [address]. [place] [address] Dr. Donnie Jean, Poultry Picker Performed By: #### C 734 #### [facility] [address] [place] [address] [place] [address] Lymphocytes 2 % Low 20-51 [facility] Comment on above: Order Comment: Items in this order include: Culture, Urine Testing Performed By: [facility] [address] [place] [address]. [place] [address] Dr. Donnie Jean, Poultry Picker Performed By: #### C 734 #### [facility] [address] [place] [address] [address] [place] [address] Macrocytes Ql (Bld) SLIGHT Normal [facility] Comment on above: Order Comment: Items in this order include: Culture, Urine Testing Performed By: [facility] [address] [place] [address]. [place] [address] Dr. Donnie Jean, Poultry Picker Performed By: #### C 734 #### [facility] [address] [place] [address] [address] [place] [address] Metamyelocytes 1 % Normal <2 [facility] Comment on above: Order Comment: Items in this order include: Culture, Urine Testing Performed By: [facility] [address] [place] [address] Dr. Donnie Jean, Poultry Picker Performed By: #### C 734 #### [facility] [address] [place] [address] Monocytes 2 % Normal 2-9 [facility] Comment on above: Order Comment: Items in this order include: Culture, Urine Testing Performed By: [facility] [address] [place] [address] Dr. Donnie Jean, Poultry Picker Performed By: #### C 734 #### [facility] [address] [place] [address] Neutrophils 95 % High 42-75 [facility] Comment on above: Order Comment: Items in this order include: Culture, Urine Testing Performed By: [facility] [address] [place] [address] Dr. Donnie Jean, Poultry Picker Performed By: #### C 734 #### [facility] [address] [place] [address] Ovalocytes SLIGHT Normal [facility] Comment on above: Order Comment: Items in this order include: Culture, Urine Testing Performed By: [facility] [address] [place] [address] Dr. Donnie Jean, Poultry Picker Performed By: #### C 734 #### [facility] [address] [place] [address] Poikilocytosis MODERATE Normal [facility] Comment on above: Order Comment: Items in this order include: Culture, Urine Testing Performed By: [facility] [address] [place] [address] Dr. Donnie Jean, Poultry Picker Performed By: #### C 734 #### [facility] [address] [place] [address] Polychromasia SLIGHT Normal [facility] Comment on above: Order Comment: Items in this order include: Culture, Urine Testing Performed By: [facility] [address] [place] [address]. [place] [address] Dr. Donnie Jean, Poultry Picker Performed By: #### C 734 #### [facility] [address] [place] [address] [address] [place] [address] Target Cells SLIGHT Normal [facility] Comment on above: Order Comment: Items in this order include: Culture, Urine Testing Performed By: [facility] [address] [place] [address]. [place] [address] Dr. Donnie Jean, Poultry Picker Performed By: #### C 734 #### [facility] [address] [place] [address] [address] [place] [address] Slide Scan, Microscopeon Platelets (Bld) [#/Vol] RESULTS MAY BE INACCURATE DUE TO PLATELET CLUMPING; SUGGEST REDRAW PLT COUNT IN BLUE-TOP (CITRATED TUBE). ALL OTHER CBC PARAMETERS ARE UNAFFECTED BY THIS IN VITRO PHENOMENON. Normal [facility] Comment on above: Order Comment: Items in this order include: Culture, Urine Testing Performed By: [facility] [address] [place] [address]. [place] [address] Dr. Donnie Jean, Poultry Picker Performed By: #### C 734 #### [facility] [address] [place] [address] [address] [place] [address] TSH w/ reflex to FT4on 09-27 TSH Qn 4.30 MIU/mL Normal 0.50-6.00 [facility] Comment on above: Order Comment: Items in this order include: Culture, Urine Testing Performed By: [facility] [address] [place] [address]. [place] [address] Dr. Donnie Jean, Poultry Picker Performed By: #### C 734 #### [facility] [address] [place] [address] [place] [address] CBC with differentialon 08-0 4-2020 Erythrocyte distribution width (RBC) [Ratio] 15.4 % Normal 11.5-15.5 [facility] Comment on above: Order Comment: Items in this order include: Comprehensive Metabolic Panel, Lipid Panel, Uric Acid , Vit D 25 [place] (Total), CBC with differential, HgbA1C, , , , Slide Scan if Indicated, Manual Differential if IndicatedTesting Performed By: [facility] [address] [place] [address]. [place] [address] Dr. Donnie Jean, Poultry Picker Performed By: #### C 709 #### [facility], [facility]. [address] [place] [address] [place] [address] Hematocrit (Bld) [Volume fraction] 37.9 % Normal 37.0-47.0 [facility] Comment on above: Order Comment: Items in this order include: Comprehensive Metabolic Panel, Lipid Panel, Uric Acid , Vit D 25 [place] (Total), CBC with differential, HgbA1C, , , , Slide Scan if Indicated, Manual Differential if IndicatedTesting Performed By: [facility] [address] [place] [address] [address] [address] Donnie Jean, Poultry Picker Performed By: #### C 709 #### [facility], [facility]. [address] [place] [address] [place] [address] Hemoglobin (Bld) [Mass/Vol] 12.1 g/dL Normal 11.5-15.5 [facility] Comment on above: Order Comment: Items in this order include: Comprehensive Metabolic Panel, Lipid Panel, Uric Acid , Vit D 25 [place] (Total), CBC with differential, HgbA1C, , , , Slide Scan if Indicated, Manual Differential if IndicatedTesting Performed By: [facility] [address] [place] [address] [address] [address] Donnie Jean, Poultry Picker Performed By: #### C 709 #### [facility], [facility]. [address] [place] [address] [place] [address] MCH (RBC) [Entitic mass] 35.7 pg High 27.0-31.0 [facility] Comment on above: Order Comment: Items in this order include: Comprehensive Metabolic Panel, Lipid Panel, Uric Acid , Vit D 25 [place] (Total), CBC with differential, HgbA1C, , , , Slide Scan if Indicated, Manual Differential if IndicatedTesting Performed By: [facility] [address] [place] [address] Dr. Donnie Jean, Poultry Picker Performed By: #### C 709 #### [facility], [facility]. [address] [place] [address] [place] [address] MCHC (RBC) [Mass/Vol] 31.9 g/dL Low 32.0-36.0 [facility] Comment on above: Order Comment: Items in this order include: Comprehensive Metabolic Panel, Lipid Panel, Uric Acid , Vit D 25 [place] (Total), CBC with differential, HgbA1C, , , , Slide Scan if Indicated, Manual Differential if IndicatedTesting Performed By: [facility] [address] [place] [address] Dr. Donnie Jean, Poultry Picker Performed By: #### C 709 #### [facility], [facility]. [address] [place] [address] [place] [address] MCV (RBC) [Entitic vol] 111.8 fL High 78.0-100.0 [facility] Comment on above: Order Comment: Items in this order include: Comprehensive Metabolic Panel, Lipid Panel, Uric Acid , Vit D 25 [place] (Total), CBC with differential, HgbA1C, , , , Slide Scan if Indicated, Manual Differential if IndicatedTesting Performed By: [facility] [address] [place] [address] [address] [address] Donnie Jean, Poultry Picker Performed By: #### C 709 #### [facility], [facility]. [address] [place] [address] [place] [address] Platelet mean volume (Bld) [Entitic vol] 10.5 fL Normal 8.9-12.6 [facility] Comment on above: Order Comment: Items in this order include: Comprehensive Metabolic Panel, Lipid Panel, Uric Acid , Vit D 25 [place] (Total), CBC with differential, HgbA1C, , , , Slide Scan if Indicated, Manual Differential if IndicatedTesting Performed By: [facility] [address] [place] [address]. [place] [address] Dr. Donnie Jean, Poultry Picker Performed By: #### C 709 #### [facility], [facility]. [address] [place] [address] [address] [place] [address] Platelets (Bld) [#/Vol] 356 K CUMM Normal 130-400 [facility] Comment on above: Order Comment: Items in this order include: Comprehensive Metabolic Panel, Lipid Panel, Uric Acid , Vit D 25 [place] (Total), CBC with differential, HgbA1C, , , , Slide Scan if Indicated, Manual Differential if IndicatedTesting Performed By: [facility] [address] [place] [address]. [place] [address] Dr. Donnie Jean, Poultry Picker Performed By: #### C 709 #### [facility]. [address] [place] [address] [address] [place] [address] RBC (Bld) [#/Vol] 3.39 M CUMM Low 3.80-5.10 [facility] Comment on above: Order Comment: Items in this order include: Comprehensive Metabolic Panel, Lipid Panel, Uric Acid , Vit D 25 [place] (Total), CBC with differential, HgbA1C, , , , Slide Scan if Indicated, Manual Differential if IndicatedTesting Performed By: [facility] [address] [place] [address]. [place] [address] Dr. Donnie Jean, Poultry Picker Performed By: #### C 709 #### [facility], [facility]. [address] [place] [address] [address] [place] [address] WBC (Bld) [#/Vol] 18.3 K CUMM High 3.8-10.6 [facility] Comment on above: Order Comment: Items in this order include: Comprehensive Metabolic Panel, Lipid Panel, Uric Acid , Vit D 25 [place] (Total), CBC with differential, HgbA1C, , , , Slide Scan if Indicated, Manual Differential if IndicatedTesting Performed By: [facility] [address] [place] [address]. [place] [address] Dr. Donnie Jean, Poultry Picker Performed By: #### C 709 #### [facility], [facility]. [address] [place] [address] [place] [address] Comprehensive Metabolic Pane donnie 06-21-2020 Albumin [Mass/Vol] 4.4 g/dL Normal 3.5-5.0 [facility] Comment on above: Order Comment: Items in this order include: Comprehensive Metabolic Panel, Lipid Panel, Uric Acid , Vit D 25 [place] (Total), CBC with differential, HgbA1C, , , , Slide Scan if Indicated, Manual Differential if IndicatedTesting Performed By: [facility] [address] [place] [address]. [place] [id number] Dr. Donnie Jean, Lab DirectorItems in this order include: Comprehensive Metabolic Panel, Lipid Panel, Uric Acid , Vit D 25 [place] (Total), CBC with differential, HgbA1C, , , , Manual Differential if Indicated Performed By: #### C 709 #### [facility] [address] [place] [address] [place] [address] Alk Phos 66 U/L Normal 23-159 [facility] Comment on above: Order Comment: Items in this order include: Comprehensive Metabolic Panel, Lipid Panel, Uric Acid , Vit D 25 [place] (Total), CBC with differential, HgbA1C, , , , Slide Scan if Indicated, Manual Differential if IndicatedTesting Performed By: [facility] [facility] [address] [place] [address]. [place] [address] Dr. Donnie Jean, Lab DirectorItems in this order include: Comprehensive Metabolic Panel, Lipid Panel, Uric Acid , Vit D 25 [place] (Total), CBC with differential, HgbA1C, , , , Manual Differential if Indicated Performed By: #### C 709 #### [facility] [address] [place] [address] [address] [place] [address] ALT [Catalytic activity/Vol] 9 U/L Normal 0-38 [facility] Comment on above: Order Comment: Items in this order include: Comprehensive Metabolic Panel, Lipid Panel, Uric Acid , Vit D 25 [place] (Total), CBC with differential, HgbA1C, , , , Slide Scan if Indicated, Manual Differential if IndicatedTesting Performed By: [facility] [address] [place] [address]. [place] [address] Dr. Donnie Jean, Lab DirectorItems in this order include: Comprehensive Metabolic Panel, Lipid Panel, Uric Acid , Vit D 25 [place] (Total), CBC with differential, HgbA1C, , , , Manual Differential if Indicated Performed By: #### C 709 #### [facility] [address] [place] [address] [place] [address] AST [Catalytic activity/Vol] 17 U/L Normal 11-43 [facility] Comment on above: Order Comment: Items in this order include: Comprehensive Metabolic Panel, Lipid Panel, Uric Acid , Vit D 25 [place] (Total), CBC with differential, HgbA1C, , , , Slide Scan if Indicated, Manual Differential if IndicatedTesting Performed By: [facility] [address] [place] [address]. [place] [address] Dr. Donnie Jean, Lab DirectorItems in this order include: Comprehensive Metabolic Panel, Lipid Panel, Uric Acid , Vit D 25 [place] (Total), CBC with differential, HgbA1C, , , , Manual Differential if Indicated Performed By: #### C 709 #### [facility] [address] [place] [address] [place] [address] Bilirubin [Mass/Vol] 0.3 mg/dL Normal 0.2-1.3 [facility] Comment on above: Order Comment: Items in this order include: Comprehensive Metabolic Panel, Lipid Panel, Uric Acid , Vit D 25 [place] (Total), CBC with differential, HgbA1C, , , , Slide Scan if Indicated, Manual Differential if IndicatedTesting Performed By: [facility] [address] [place] [address]. [place] [address] Dr. Donnie Jean, Lab DirectorItems in this order include: Comprehensive Metabolic Panel, Lipid Panel, Uric Acid , Vit D 25 [place] (Total), CBC with differential, HgbA1C, , , , Manual Differential if Indicated Performed By: #### C 709 #### [facility] [address] [place] [address] [address] [place] [address] Calcium [Mass/Vol] 10.1 mg/dL Normal 8.5-10.5 [facility] Comment on above: Order Comment: Items in this order include: Comprehensive Metabolic Panel, Lipid Panel, Uric Acid , Vit D 25 [place] (Total), CBC with differential, HgbA1C, , , , Slide Scan if Indicated, Manual Differential if IndicatedTesting Performed By: [facility] [address] [place] [address]. [place] [address] Dr. Donnie Jean, Lab DirectorItems in this order include: Comprehensive Metabolic Panel, Lipid Panel, Uric Acid , Vit D 25 [place] (Total), CBC with differential, HgbA1C, , , , Manual Differential if Indicated Performed By: #### C 709 #### [facility] [address] [place] [address] [place] [address] Chloride [Moles/Vol] 106 mmol/L Normal 98-107 [facility] Comment on above: Order Comment: Items in this order include: Comprehensive Metabolic Panel, Lipid Panel, Uric Acid , Vit D 25 [place] (Total), CBC with differential, HgbA1C, , , , Slide Scan if Indicated, Manual Differential if IndicatedTesting Performed By: [facility] [address] [place] [address] [address] Donnie Jean, Lab DirectorItems in this order include: Comprehensive Metabolic Panel, Lipid Panel, Uric Acid , Vit D 25 [place] (Total), CBC with differential, HgbA1C, , , , Manual Differential if Indicated Performed By: #### C 709 #### [facility] [address] [place] [address] [place] [address] CO2 [Moles/Vol] 17.0 mmol/L Low 21.0-32.0 [facility] Comment on above: Order Comment: Items in this order include: Comprehensive Metabolic Panel, Lipid Panel, Uric Acid , Vit D 25 [place] (Total), CBC with differential, HgbA1C, , , , Slide Scan if Indicated, Manual Differential if IndicatedTesting Performed By: [facility] [address] [place] [address] [address] [address] Donnie Jean, Lab DirectorItems in this order include: Comprehensive Metabolic Panel, Lipid Panel, Uric Acid , Vit D 25 [place] (Total), CBC with differential, HgbA1C, , , , Manual Differential if Indicated Performed By: #### C 709 #### [facility], [facility]. [address] [place] [address] [place] [address] Creatinine [Mass/Vol] 1.5 mg/dL High 0.1-1.2 [facility] Comment on above: Order Comment: Items in this order include: Comprehensive Metabolic Panel, Lipid Panel, Uric Acid , Vit D 25 [place] (Total), CBC with differential, HgbA1C, , , , Slide Scan if Indicated, Manual Differential if IndicatedTesting Performed By: [facility] [address] [place] [address] Donnie Jean, Lab DirectorItems in this order include: Comprehensive Metabolic Panel, Lipid Panel, Uric Acid , Vit D 25 [place] (Total), CBC with differential, HgbA1C, , , , Manual Differential if Indicated Performed By: #### C 709 #### [address] [place] [address] GFR/1.73 sq M.predicted MDRD (S/P/Bld) [Vol rate/Area] 33 mL/min per 1.73 Low >60 [facility] Comment on above: Order Comment: Items in this order include: Comprehensive Metabolic Panel, Lipid Panel, Uric Acid , Vit D 25 [place] (Total), CBC with differential, HgbA1C, , , , Slide Scan if Indicated, Manual Differential if IndicatedTesting Performed By: [facility] [address] [place] [address] [address] [address] Donnie Jean, Lab DirectorItems in this order include: Comprehensive Metabolic Panel, Lipid Panel, Uric Acid , Vit D 25 [place] (Total), CBC with differential, HgbA1C, , , , Manual Differential if Indicated Result Comment: The GFR estimate is not adjusted for race. If the patient's race is -Cub[place], the GFR estimate must be multiplied by a factor of 1.21. Performed By: #### C 709 #### [facility], [facility]. [address] [place] [address] [address] [place] [address] Glucose [Mass/Vol] 108 mg/dL High 74-100 [facility] Comment on above: Order Comment: Items in this order include: Comprehensive Metabolic Panel, Lipid Panel, Uric Acid , Vit D 25 [place] (Total), CBC with differential, HgbA1C, , , , Slide Scan if Indicated, Manual Differential if IndicatedTesting Performed By: [facility] [address] [place] [address] [address] Donnie Jean, Lab DirectorItems in this order include: Comprehensive Metabolic Panel, Lipid Panel, Uric Acid , Vit D 25 [place] (Total), CBC with differential, HgbA1C, , , , Manual Differential if Indicated Performed By: #### C 709 #### [facility], [facility]. [address] [place] [address] [place] [address] Potassium [Moles/Vol] 4.7 mmol/L Normal 3.5-5.3 [facility] Comment on above: Order Comment: Items in this order include: Comprehensive Metabolic Panel, Lipid Panel, Uric Acid , Vit D 25 [place] (Total), CBC with differential, HgbA1C, , , , Slide Scan if Indicated, Manual Differential if IndicatedTesting Performed By: [facility] [address] [place] [address] [address] Donnie Jean, Lab DirectorItems in this order include: Comprehensive Metabolic Panel, Lipid Panel, Uric Acid , Vit D 25 [place] (Total), CBC with differential, HgbA1C, , , , Manual Differential if Indicated Performed By: #### C 709 #### [facility], [facility]. [address] [place] [address] [address] [place] [address] Protein [Mass/Vol] 7.4 g/dL Normal 6.3-8.4 [facility] Comment on above: Order Comment: Items in this order include: Comprehensive Metabolic Panel, Lipid Panel, Uric Acid , Vit D 25 [place] (Total), CBC with differential, HgbA1C, , , , Slide Scan if Indicated, Manual Differential if IndicatedTesting Performed By: [facility] [address] [place] [address] Donnie Jean, Lab DirectorItems in this order include: Comprehensive Metabolic Panel, Lipid Panel, Uric Acid , Vit D 25 [place] (Total), CBC with differential, HgbA1C, , , , Manual Differential if Indicated Performed By: #### C 709 #### [facility], [facility]. [address] [place] [address] [address] [place] [address] Sodium [Moles/Vol] 139 mmol/L Normal 135-145 [facility] Comment on above: Order Comment: Items in this order include: Comprehensive Metabolic Panel, Lipid Panel, Uric Acid , Vit D 25 [place] (Total), CBC with differential, HgbA1C, , , , Slide Scan if Indicated, Manual Differential if IndicatedTesting Performed By: [facility] [address] [place] [address]. [place] [address] Dr. Donnie Jean, Lab DirectorItems in this order include: Comprehensive Metabolic Panel, Lipid Panel, Uric Acid , Vit D 25 [place] (Total), CBC with differential, HgbA1C, , , , Manual Differential if Indicated Performed By: #### C 709 #### [facility], [facility]. [address] [place] [address] [place] [address] Urea nitrogen [Mass/Vol] 36 mg/dL High 6-22 [facility] Comment on above: Order Comment: Items in this order include: Comprehensive Metabolic Panel, Lipid Panel, Uric Acid , Vit D 25 [place] (Total), CBC with differential, HgbA1C, , , , Slide Scan if Indicated, Manual Differential if IndicatedTesting Performed By: [facility] [address] [place] [address]. [place] [address] Dr. Donnie Jean, Lab DirectorItems in this order include: Comprehensive Metabolic Panel, Lipid Panel, Uric Acid , Vit D 25 [place] (Total), CBC with differential, HgbA1C, , , , Manual Differential if Indicated Performed By: #### C 709 #### [facility], [facility]. [address] [place] [address] [address] [place] [address] [id number] 06-21-2020 HbA1c (Bld) [Mass fraction] 6.3 % High <5.7 [facility] Comment on above: Order Comment: Items in this order include: Comprehensive Metabolic Panel, Lipid Panel, Uric Acid , Vit D 25 [place] (Total), CBC with differential, HgbA1C, , , , Slide Scan if Indicated, Manual Differential if IndicatedTesting Performed By: [facility] [address] [place] [address]. [place] [address] Dr. Donnie Jean, Lab DirectorItems in this order include: Comprehensive Metabolic Panel, Lipid Panel, Uric Acid , Vit D 25 [place] (Total), CBC with differential, HgbA1C, , , , Manual Differential if Indicated Result Comment: Refe rence Interval: Normal: below 5.7%. Prediabetes: 5.7% to 6.4%. Diabetes: 6.5% or above. Performed By: #### C 709 #### [facility] [address] [place] [address] [place] [address] Lipid Panelon 06-21-2020 Cholesterol [Mass/Vol] 124 mg/dL Normal <200 [facility] Comment on above: Performed By: #### C 709 #### [facility] [address] [place] [address] [place] [address] Cholesterol in HDL [Mass/Vol] 34 mg/dL Low >50 [facility] Comment on above: Performed By: #### C 709 #### [facility] [address] [place] [address] [address] [place] [address] Cholesterol in LDL [Mass/Vol] 49 mg/dL Normal <130 [facility] Comment on above: Performed By: #### C 709 #### [facility] [address] [place] [address] [address] [place] [address] Cholesterol.total/C holesterol in HDL [Mass ratio] 3.6 {ratio} Normal <4.0 [facility] Comment on above: Performed By: #### C 709 #### [facility] [address] [place] [address] [address] [place] [address] Non-HDL Chol 90 Normal LDL Goal + 30 [facility] Comment on above: Result Comment: LDL and Non-HDL goal dependent upon individual risk Performed By: #### C 709 #### [facility] [address] [place] [address] [address] [place] [address] Triglyceride [Mass/Vol] 206 mg/dL High <150 [facility] Comment on above: Performed By: #### C 709 #### [facility] [address] [place] [address] [address] [place] [address] VLDL-Calc 41 mg/dl High <30 [facility] Comment on above: Performed By: #### C 709 #### [facility] [address] [place] [address] [address] [place] [address] Manual Differential if Indic atedon 06-21-2020 Anisocytosis Ql (Bld) MODERATE Normal [facility] Comment on above: Order Comment: Items in this order include: Comprehensive Metabolic Panel, Lipid Panel, Uric Acid , Vit D 25 [place] (Total), CBC with differential, HgbA1C, , , , Slide Scan if Indicated, Manual Differential if IndicatedTesting Performed By: [facility] [address] [place] [address] [address] Donnie Jean, Lab DirectorItems in this order include: Comprehensive Metabolic Panel, Lipid Panel, Uric Acid , Vit D 25 [place] (Total), CBC with differential, HgbA1C, , , , Manual Differential if IndicatedReceived comment: User comments: Slide comments: Performed By: #### C 709 #### [facility] [address] [place] [address] [address] [place] [address] Basophils 1 % Normal [facility] Comment on above: Order Comment: Items in this order include: Comprehensive Metabolic Panel, Lipid Panel, Uric Acid , Vit D 25 [place] (Total), CBC with differential, HgbA1C, , , , Slide Scan if Indicated, Manual Differential if IndicatedTesting Performed By: [facility] [address] [place] [address] [address] Donnie Jean, Lab DirectorItems in this order include: Comprehensive Metabolic Panel, Lipid Panel, Uric Acid , Vit D 25 [place] (Total), CBC with differential, HgbA1C, , , , Manual Differential if IndicatedReceived comment: User comments: Slide comments: Performed By: #### C 709 #### [facility] [address] [place] [address] [address] [place] [address] Lymphocytes 7 % Low 20-51 [facility] Comment on above: Order Comment: Items in this order include: Comprehensive Metabolic Panel, Lipid Panel, Uric Acid , Vit D 25 [place] (Total), CBC with differential, HgbA1C, , , , Slide Scan if Indicated, Manual Differential if IndicatedTesting Performed By: [facility] [address] [place] [address]. [place] [address] Dr. Donnie Jean, Lab DirectorItems in this order include: Comprehensive Metabolic Panel, Lipid Panel, Uric Acid , Vit D 25 [place] (Total), CBC with differential, HgbA1C, , , , Manual Differential if IndicatedReceived comment: User comments: Slide comments: Performed By: #### C 709 #### [facility] [address] [place] [address] [address] [place] [address] Macrocytes Ql (Bld) SLIGHT Normal [facility] Comment on above: Order Comment: Items in this order include: Comprehensive Metabolic Panel, Lipid Panel, Uric Acid , Vit D 25 [place] (Total), CBC with differential, HgbA1C, , , , Slide Scan if Indicated, Manual Differential if IndicatedTesting Performed By: [facility] [address] [place] [address]. [place] [address] Dr. Donnie Jean, Lab DirectorItems in this order include: Comprehensive Metabolic Panel, Lipid Panel, Uric Acid , Vit D 25 [place] (Total), CBC with differential, HgbA1C, , , , Manual Differential if IndicatedReceived comment: User comments: Slide comments: Performed By: #### C 709 #### [facility] [address] [place] [address] [address] [place] [address] Metamyelocytes 3 % High <2 [facility] Comment on above: Order Comment: Items in this order include: Comprehensive Metabolic Panel, Lipid Panel, Uric Acid , Vit D 25 [place] (Total), CBC with differential, HgbA1C, , , , Slide Scan if Indicated, Manual Differential if IndicatedTesting Performed By: [facility] [address] [place] [address]. [place] [address] Dr. Donnie Jean, Lab DirectorItems in this order include: Comprehensive Metabolic Panel, Lipid Panel, Uric Acid , Vit D 25 [place] (Total), CBC with differential, HgbA1C, , , , Manual Differential if IndicatedReceived comment: User comments: Slide comments: Performed By: #### C 709 #### [facility] [address] [place] [address] [address] [place] [address] Microcytes SLIGHT Normal SLIGHT [facility] Comment on above: Order Comment: Items in this order include: Comprehensive Metabolic Panel, Lipid Panel, Uric Acid , Vit D 25 [place] (Total), CBC with differential, HgbA1C, , , , Slide Scan if Indicated, Manual Differential if IndicatedTesting Performed By: [facility] [address] [place] [address]. [place] [address] Dr. Donnie Jean, Lab DirectorItems in this order include: Comprehensive Metabolic Panel, Lipid Panel, Uric Acid , Vit D 25 [place] (Total), CBC with differential, HgbA1C, , , , Manual Differential if IndicatedReceived comment: User comments: Slide comments: Performed By: #### C 709 #### [facility] [address] [place] [address] [address] - [place] [id number] Neutrophils 89 % High 42-75 [facility] Comment on above: Order Comment: Items in this order include: Comprehensive Metabolic Panel, Lipid Panel, Uric Acid , Vit D 25 [place] (Total), CBC with differential, HgbA1C, , , , Slide Scan if Indicated, Manual Differential if IndicatedTesting Performed By: [facility] [address] [place] [address]. [place] [address] Dr. Donnie Jean, Lab DirectorItems in this order include: Comprehensive Metabolic Panel, Lipid Panel, Uric Acid , Vit D 25 [place] (Total), CBC with differential, HgbA1C, , , , Manual Differential if IndicatedReceived comment: User comments: Slide comments: Performed By: #### C 709 #### [facility] [address] [place] [address] [place] [address] Polychromasia SLIGHT Normal [facility] Comment on above: Order Comment: Items in this order include: Comprehensive Metabolic Panel, Lipid Panel, Uric Acid , Vit D 25 [place] (Total), CBC with differential, HgbA1C, , , , Slide Scan if Indicated, Manual Differential if IndicatedTesting Performed By: [facility] [address] [place] [address]. [place] [address] Dr. Donnie Jean, Lab DirectorItems in this order include: Comprehensive Metabolic Panel, Lipid Panel, Uric Acid , Vit D 25 [place] (Total), CBC with differential, HgbA1C, , , , Manual Differential if IndicatedReceived comment: User comments: Slide comments: Performed By: #### C 709 #### [facility] [address] [place] [address] [place] [address] Uric Acidon 06-21-2020 Urate [Mass/Vol] 9.0 mg/dL High 2.5-6.2 [facility] Comment on above: Performed By: #### C 709 #### [facility] [address] [place] [address] [place] [address] Vit D 25 [place] (Total)on 2019 Vit D 25 [place] (Total) 36.9 ng/ml Normal 31.0-100.0 [facility] Comment on above: Order Comment: Items in this order include: Comprehensive Metabolic Panel, Lipid Panel, Uric Acid , Vit D 25 [place] (Total), CBC with differential, HgbA1C, , , , Slide Scan if Indicated, Manual Differential if IndicatedTesting Performed By: [facility] [address] [place] [address]. [place] [address] Dr. Donnie Jean, Lab DirectorItems in this order include: Comprehensive Metabolic Panel, Lipid Panel, Uric Acid , Vit D 25 [place] (Total), CBC with differential, HgbA1C, , , , Manual Differential if Indicated Result Comment: Defi ciency <10 ng/ml Insufficiency 10-30 ng/ml Sufficiency 31-100 ng/ml Toxicity >100 ng/ml Performed By: #### C 709 #### [facility] [address] [place] [address] [place] [address] SHADY Mammo Digital Diag RT w t virgilio [...] be immediately mailed to the patient. Jeffrey Ayoub thanks you for the opportunity to care for your patient. Workstation ID: [id number] - [id number] FINAL REPORT Dictated By: Jazlyn Stuart MD 02/03/2020 14:27 Assigned Physician: Jazlyn Stuart MD Reviewed and Electronically Signed By: Jazlyn Stuart MD 02/03/2020 14:28 Transcribed by: OSKAR 02/03/2020 14:27 Technologist: PRINCE Cam [facility] Mammo Digital Screen bila t w [...] will be immediately mailed to the patient. [place] thanks you for the opportunity to care for your patient. Workstation ID: [id number] - [id number] FINAL REPORT Dictated By: Jazlyn Stuart MD 02/01/2020 14:28 Assigned Physician: Jazlyn Stuart MD Reviewed and Electronically Signed By: Jazlyn Stuart MD 02/01/2020 14:29 Transcribed by: OSKAR 02/01/2020 14:28 Technologist: JEROME Cam [facility] CBC with differentialon Erythrocyte distribution width (RBC) [Ratio] 14.7 % Normal 11.5-15.5 [facility] Comment on above: Order Comment: Items in this order include: Cholesterol, Comprehensive Metabolic Panel, Direct LDL , HDL, Uric Acid , CBC with differential, HgbA1C, , , Slide Scan if Indicated, Manual Differential if Indicated Testing Performed By: [facility] [address] [place], [place] [email or web address] [place] [address] Dr. Donnie Jean, Poultry Picker Items in this order include: Cholesterol, Comprehensive Metabolic Panel, Direct LDL , HDL, Uric Acid , CBC with differential, HgbA1C, , , Slide Scan if Indicated, Manual Differential if Indicated Testing Performed By: [facility] [address] [place], [place] [address] [place] [address] Dr. Donnie Jean, Poultry Picker Items in this order include: Cholesterol, Comprehensive Metabolic Panel, Direct LDL , HDL, Uric Acid , CBC with differential, HgbA1C, , , Slide Scan if Indicated, Manual Differential if Indicated Testing Performed By: [facility] [address] [place], [place] [email or web address] [place] [address] Dr. Donnie Jean, Poultry Picker Performed By: #### C 120, C141, C116, C406, C4521, C118, C47, C4523, C215 #### [facility] [address] [place] [address] [address] [place] [address] Hematocrit (Bld) [Volume fraction] 40.6 % Normal 37.0-47.0 [facility] Comment on above: Order Comment: Items in this order include: Cholesterol, Comprehensive Metabolic Panel, Direct LDL , HDL, Uric Acid , CBC with differential, HgbA1C, , , Slide Scan if Indicated, Manual Differential if Indicated Testing Performed By: [facility] [address] [place], [place] [email or web address] [place] [address] Dr. Donnie Jean, Poultry Picker Items in this order include: Cholesterol, Comprehensive Metabolic Panel, Direct LDL , HDL, Uric Acid , CBC with differential, HgbA1C, , , Slide Scan if Indicated, Manual Differential if Indicated Testing Performed By: [facility] [address] [place] [address] Dr. Donnie Jean, Poultry Picker Items in this order include: Cholesterol, Comprehensive Metabolic Panel, Direct LDL , HDL, Uric Acid , CBC with differential, HgbA1C, , , Slide Scan if Indicated, Manual Differential if Indicated Testing Performed By: [facility] Laboratory [address] [place] [address] Dr. Donnie Jean, Poultry Picker Performed By: #### C 120, C141, C116, C406, C4521, C118, C47, C4523, C215 #### [facility], [facility]. [address] [place] [address] [address] [place] [address] Hemoglobin (Bld) [Mass/Vol] 12.9 g/dL Normal 11.5-15.5 [facility] Comment on above: Order Comment: Items in this order include: Cholesterol, Comprehensive Metabolic Panel, Direct LDL , HDL, Uric Acid , CBC with differential, HgbA1C, , , Slide Scan if Indicated, Manual Differential if Indicated Testing Performed By: [facility] [address] [place] [address] Dr. Donnie Jean, Poultry Picker Items in this order include: Cholesterol, Comprehensive Metabolic Panel, Direct LDL , HDL, Uric Acid , CBC with differential, HgbA1C, , , Slide Scan if Indicated, Manual Differential if Indicated Testing Performed By: [facility] [address] [place] [address] Dr. Donnie Jean, Poultry Picker Items in this order include: Cholesterol, Comprehensive Metabolic Panel, Direct LDL , HDL, Uric Acid , CBC with differential, HgbA1C, , , Slide Scan if Indicated, Manual Differential if Indicated Testing Performed By: [facility] [address] [place] [address] Dr. Donnie Jean, Poultry Picker Performed By: #### C 120, C141, C116, C406, C4521, C118, C47, C4523, C215 #### [facility] [address] [facility] [address] [place] [address] MCH (RBC) [Entitic mass] 35.1 pg High 27.0-31.0 [facility] Comment on above: Order Comment: Items in this order include: Cholesterol, Comprehensive Metabolic Panel, Direct LDL , HDL, Uric Acid , CBC with differential, HgbA1C, , , Slide Scan if Indicated, Manual Differential if Indicated Testing Performed By: [facility] [address] [place] [address]. [place] [id number] Dr. Donnie Jean, Poultry Picker Items in this order include: Cholesterol, Comprehensive Metabolic Panel, Direct LDL , HDL, Uric Acid , CBC with differential, HgbA1C, , , Slide Scan if Indicated, Manual Differential if Indicated Testing Performed By: [facility] [address] [place] [address]. [place] [address] Dr. Donnie Jean, Poultry Picker Items in this order include: Cholesterol, Comprehensive Metabolic Panel, Direct LDL , HDL, Uric Acid , CBC with differential, HgbA1C, , , Slide Scan if Indicated, Manual Differential if Indicated Testing Performed By: [facility] [address] [place] [address]. [place] [id number] Dr. Donnie Jean, Poultry Picker Performed By: #### C 120, C141, C116, C406, C4521, C118, C47, C4523, C215 #### [facility] [address] [place] [address] [address] [place] [address] MCHC (RBC) [Mass/Vol] 31.8 g/dL Low 32.0-36.0 [facility] Comment on above: Order Comment: Items in this order include: Cholesterol, Comprehensive Metabolic Panel, Direct LDL , HDL, Uric Acid , CBC with differential, HgbA1C, , , Slide Scan if Indicated, Manual Differential if Indicated Testing Performed By: [facility] [address] [place] [address]. [place] [id number] Dr. Donnie Jean, Poultry Picker Items in this order include: Cholesterol, Comprehensive Metabolic Panel, Direct LDL , HDL, Uric Acid , CBC with differential, HgbA1C, , , Slide Scan if Indicated, Manual Differential if Indicated Testing Performed By: [facility] [address] [place] [address] Dr. Donnie Jean, Poultry Picker Items in this order include: Cholesterol, Comprehensive Metabolic Panel, Direct LDL , HDL, Uric Acid , CBC with differential, HgbA1C, , , Slide Scan if Indicated, Manual Differential if Indicated Testing Performed By: [facility] [address] [place] [address] Dr. Donnie Jean, Poultry Picker Performed By: #### C 120, C141, C116, C406, C4521, C118, C47, C4523, C215 #### [facility] [address] [place] [address] [address] [place] [address] MCV (RBC) [Entitic vol] 110.6 fL High 78.0-100.0 [facility] Comment on above: Order Comment: Items in this order include: Cholesterol, Comprehensive Metabolic Panel, Direct LDL , HDL, Uric Acid , CBC with differential, HgbA1C, , , Slide Scan if Indicated, Manual Differential if Indicated Testing Performed By: [facility] [address] [place] [address] Dr. Donnie Jean, Poultry Picker Items in this order include: Cholesterol, Comprehensive Metabolic Panel, Direct LDL , HDL, Uric Acid , CBC with differential, HgbA1C, , , Slide Scan if Indicated, Manual Differential if Indicated Testing Performed By: [facility] [address] [place] [address] Dr. Donnie Jean, Poultry Picker Items in this order include: Cholesterol, Comprehensive Metabolic Panel, Direct LDL , HDL, Uric Acid , CBC with differential, HgbA1C, , , Slide Scan if Indicated, Manual Differential if Indicated Testing Performed By: [facility] [address] [place] [address] Dr. Donnie Jean, Poultry Picker Performed By: #### C 120, C141, C116, C406, C4521, C118, C47, C4523, C215 #### [facility] [address] [facility] [address] [place] [address] Platelet mean volume (Bld) [Entitic vol] 10.6 fL Normal 8.9-12.6 [facility] Comment on above: Order Comment: Items in this order include: Cholesterol, Comprehensive Metabolic Panel, Direct LDL , HDL, Uric Acid , CBC with differential, HgbA1C, , , Slide Scan if Indicated, Manual Differential if Indicated Testing Performed By: [facility] [address] [place] [address]. [place] [address] Dr. Donnie Jean, Poultry Picker Items in this order include: Cholesterol, Comprehensive Metabolic Panel, Direct LDL , HDL, Uric Acid , CBC with differential, HgbA1C, , , Slide Scan if Indicated, Manual Differential if Indicated Testing Performed By: [facility] [address] [place] [address]. [place] [id number] Dr. Donnie Jean, Poultry Picker Items in this order include: Cholesterol, Comprehensive Metabolic Panel, Direct LDL , HDL, Uric Acid , CBC with differential, HgbA1C, , , Slide Scan if Indicated, Manual Differential if Indicated Testing Performed By: [facility] [address] [place] [address]. [place] [address] Dr. Donnie Jean, Poultry Picker Performed By: #### C 120, C141, C116, C406, C4521, C118, C47, C4523, C215 #### [facility], [facility]. [address] [place] [address] [address] [place] [address] Platelets (Bld) [#/Vol] 302 K CUMM Normal 130-400 [facility] Comment on above: Order Comment: Items in this order include: Cholesterol, Comprehensive Metabolic Panel, Direct LDL , HDL, Uric Acid , CBC with differential, HgbA1C, , , Slide Scan if Indicated, Manual Differential if Indicated Testing Performed By: [facility] [address] [place] [address]. [place] [address] Dr. Donnie Jean, Poultry Picker Items in this order include: Cholesterol, Comprehensive Metabolic Panel, Direct LDL , HDL, Uric Acid , CBC with differential, HgbA1C, , , Slide Scan if Indicated, Manual Differential if Indicated Testing Performed By: [facility] [address] [place] [address] [place] [address] Dr. Donnie Jean, Poultry Picker Items in this order include: Cholesterol, Comprehensive Metabolic Panel, Direct LDL , HDL, Uric Acid , CBC with differential, HgbA1C, , , Slide Scan if Indicated, Manual Differential if Indicated Testing Performed By: [facility] [address] [place] [address] [place] [address] Dr. Donnie Jean, Poultry Picker Performed By: #### C 120, C141, C116, C406, C4521, C118, C47, C4523, C215 #### [facility] [address] [place] [address] RBC (Bld) [#/Vol] 3.67 M CUMM Low 3.80-5.10 [facility] Comment on above: Order Comment: Items in this order include: Cholesterol, Comprehensive Metabolic Panel, Direct LDL , HDL, Uric Acid , CBC with differential, HgbA1C, , , Slide Scan if Indicated, Manual Differential if Indicated Testing Performed By: [facility] [address] [place] [address] [place] [address] Dr. Donnie Jean, Poultry Picker Items in this order include: Cholesterol, Comprehensive Metabolic Panel, Direct LDL , HDL, Uric Acid , CBC with differential, HgbA1C, , , Slide Scan if Indicated, Manual Differential if Indicated Testing Performed By: [facility] [address] [place] [address]. [place] [address] Dr. Donnie Jean, Poultry Picker Items in this order include: Cholesterol, Comprehensive Metabolic Panel, Direct LDL , HDL, Uric Acid , CBC with differential, HgbA1C, , , Slide Scan if Indicated, Manual Differential if Indicated Testing Performed By: [facility] [address] [place] [address]. [place] [address] Dr. Donnie Jean, Poultry Picker Performed By: #### C 120, C141, C116, C406, C4521, C118, C47, C4523, C215 #### [facility] [address] [place] [address] WBC (Bld) [#/Vol] 19.7 K CUMM High 3.8-10.6 [facility] Comment on above: Order Comment: Items in this order include: Cholesterol, Comprehensive Metabolic Panel, Direct LDL , HDL, Uric Acid , CBC with differential, HgbA1C, , , Slide Scan if Indicated, Manual Differential if Indicated Testing Performed By: [facility] [address] [place] [address] Dr. Donnie Jean, Poultry Picker Items in this order include: Cholesterol, Comprehensive Metabolic Panel, Direct LDL , HDL, Uric Acid , CBC with differential, HgbA1C, , , Slide Scan if Indicated, Manual Differential if Indicated Testing Performed By: [facility] [place] [address] Dr. Donnie Jean, Poultry Picker Items in this order include: Cholesterol, Comprehensive Metabolic Panel, Direct LDL , HDL, Uric Acid , CBC with differential, HgbA1C, , , Slide Scan if Indicated, Manual Differential if Indicated Testing Performed By: [facility] [place] [address] Dr. Donnie Jean, Poultry Picker Performed By: #### C 120, C141, C116, C406, C4521, C118, C47, C4523, C215 #### [facility] [address] [place] [id number] Cholesterolon 01-18-2020 Cholesterol [Mass/Vol] 112 mg/dL Normal <200 [facility] Comment on above: Order Comment: Items in this order include: Cholesterol, Comprehensive Metabolic Panel, Direct LDL , HDL, Uric Acid , CBC with differential, HgbA1C, , , Slide Scan if Indicated, Manual Differential if Indicated Testing Performed By: [facility] [place] [id number] Dr. Donnie Jean, Poultry Picker Performed By: #### C 120, C141, C116, C406, C4521, C118, C47, C4523, C215 #### [facility] [address] [place] [address] Comprehensive Metabolic Pane donnie 03-02-2020 Albumin [Mass/Vol] 4.0 g/dL Normal 3.5-5.0 [facility] Comment on above: Performed By: #### C 120, C141, C116, C406, C4521, C118, C47, C4523, C215 #### [facility] [address] [place] [address] Alk Phos 74 U/L Normal 23-159 [facility] Comment on above: Performed By: #### C 120, C141, C116, C406, C4521, C118, C47, C4523, C215 #### [facility] [address] [facility] [address] [place] [address] ALT [Catalytic activity/Vol] 18 U/L Normal 0-38 [facility] Comment on above: Performed By: #### C 120, C141, C116, C406, C4521, C118, C47, C4523, C215 #### [facility] [address] [facility] [address] [place] [address] AST [Catalytic activity/Vol] 22 U/L Normal 11-43 [facility] Comment on above: Performed By: #### C 120, C141, C116, C406, C4521, C118, C47, C4523, C215 #### [facility] [address] [facility] [address] [place] [address] Bilirubin [Mass/Vol] 0.6 mg/dL Normal 0.2-1.3 [facility] Comment on above: Performed By: #### C 120, C141, C116, C406, C4521, C118, C47, C4523, C215 #### [facility] [address] [facility] [address] [place] [address] Calcium [Mass/Vol] 9.2 mg/dL Normal 8.5-10.5 [facility] Comment on above: Performed By: #### C 120, C141, C116, C406, C4521, C118, C47, C4523, C215 #### [facility] [address] [place] [address] Chloride [Moles/Vol] 101 mmol/L Normal 98-107 [facility] Comment on above: Performed By: #### C 120, C141, C116, C406, C4521, C118, C47, C4523, C215 #### [facility] [address] [place] [address] CO2 [Moles/Vol] 22.0 mmol/L Normal 21.0-32.0 [facility] Comment on above: Performed By: #### C 120, C141, C116, C406, C4521, C118, C47, C4523, C215 #### [facility] [address] [facility] [place] [address] Creatinine [Mass/Vol] 1.2 mg/dL Normal 0.1-1.2 [facility] Comment on above: Performed By: #### C 120, C141, C116, C406, C4521, C118, C47, C4523, C215 #### [facility] [address] [facility] [place] [address] GFR/1.73 sq M.predicted MDRD (S/P/Bld) [Vol rate/Area] 43 mL/min per 1.73 Low >60 [facility] Comment on above: Result Comment: The GFR estimate is not adjusted for race. If the patient's race is -Cub[place], the GFR estimate must be multiplied by a factor of 1.21. Performed By: #### C 120, C141, C116, C406, C4521, C118, C47, C4523, C215 #### [facility] [address] [place] [address] Glucose [Mass/Vol] 157 mg/dL High 74-100 [facility] Comment on above: Performed By: #### C 120, C141, C116, C406, C4521, C118, C47, C4523, C215 #### [facility] [address] [facility] [address] [place] [address] Potassium [Moles/Vol] 4.3 mmol/L Normal 3.5-5.3 [facility] Comment on above: Performed By: #### C 120, C141, C116, C406, C4521, C118, C47, C4523, C215 #### [facility] [address] [facility] [address] [place] [address] Protein [Mass/Vol] 6.7 g/dL Normal 6.3-8.4 [facility] Comment on above: Performed By: #### C 120, C141, C116, C406, C4521, C118, C47, C4523, C215 #### [facility] [address] [facility] [address] [place] [address] Sodium [Moles/Vol] 136 mmol/L Normal 135-145 [facility] Comment on above: Performed By: #### C 120, C141, C116, C406, C4521, C118, C47, C4523, C215 #### [facility] [facility] [address] [place] [address] Urea nitrogen [Mass/Vol] 25 mg/dL High 6-22 [facility] Comment on above: Performed By: #### C 120, C141, C116, C406, C4521, C118, C47, C4523, C215 #### [facility] [address] [facility] [address] [place] [address] Direct LDLon 01-18-2020 Cholesterol in LDL [Mass/Vol] 49 mg/dL Normal <130 [facility] Comment on above: Order Comment: Items in this order include: Cholesterol, Comprehensive Metabolic Panel, Direct LDL , HDL, Uric Acid , CBC with differential, HgbA1C, , , Slide Scan if Indicated, Manual Differential if Indicated Testing Performed By: [facility] [address] [place] [address]. [place] [id number] Dr. Donnie Jean, Poultry Picker Result Comment: LDL goal dependent upon individual risk Performed By: #### C 120, C141, C116, C406, C4521, C118, C47, C4523, C215 #### [facility] [address] [facility] [address] [place] [address] HDLon 01-18-2020 Cholesterol in HDL [Mass/Vol] 30 mg/dL Low >50 [facility] Comment on above: Performed By: #### C 120, C141, C116, C406, C4521, C118, C47, C4523, C215 #### [facility] [facility] [address] [place] [id number] 01-18-2020 HbA1c (Bld) [Mass fraction] 6.7 % High <5.7 [facility] Comment on above: Order Comment: Items in this order include: Cholesterol, Comprehensive Metabolic Panel, Direct LDL , HDL, Uric Acid , CBC with differential, HgbA1C, , , Slide Scan if Indicated, Manual Differential if IndicatedTesting Performed By: [facility] [address] [place] [address]. [place] [id number] Dr. Donnie Jean, Poultry Picker Result Comment: Refe rence Interval: Normal: below 5.7%. Prediabetes: 5.7% to 6.4%. Diabetes: 6.5% or above. Performed By: #### C 709 #### [facility] [facility] [place] [address] Manual Differential if Indic atedon 01-18-2020 Anisocytosis Ql (Bld) SLIGHT Normal [facility] Comment on above: Order Comment: Jorge L galvan comment: User comments: Slide comments: Performed By: #### C 120, C141, C116, C406, C4521, C118, C47, C4523, C215 #### [facility] [facility] [place] [address] Performed By: #### C 709 #### [facility] [address] [place] [address] Basophils 2 % Normal [facility] Comment on above: Order Comment: Recei mandy comment: User comments: Slide comments: Performed By: #### C 120, C141, C116, C406, C4521, C118, C47, C4523, C215 #### [facility] [address] [place] [address] [place] Cells SLIGHT Normal [facility] Comment on above: Order Comment: Recei mandy comment: User comments: Slide comments: Performed By: #### C 120, C141, C116, C406, C4521, C118, C47, C4523, C215 #### [facility] [address] [place] [address] Performed By: #### C 709 #### [facility] [address] [place] [address] Hypochromasia SLIGHT Normal SLIGHT [facility] Comment on above: Order Comment: Recei mandy comment: User comments: Slide comments: Performed By: #### C 120, C141, C116, C406, C4521, C118, C47, C4523, C215 #### [facility] [address] [place] [address] Performed By: #### C 709 #### [facility] [address] [place] [address] Lymphocytes 4 % Low 20-51 [facility] Comment on above: Order Comment: Recei mandy comment: User comments: Slide comments: Performed By: #### C 120, C141, C116, C406, C4521, C118, C47, C4523, C215 #### [facility] [address] [place] [address] Macrocytes Ql (Bld) SLIGHT Normal [facility] Comment on above: Order Comment: Recei mandy comment: User comments: Slide comments: Performed By: #### C 120, C141, C116, C406, C4521, C118, C47, C4523, C215 #### [facility] [address] [place] [address] Performed By: #### C 709 #### [facility] [address] [place] [address] Monocytes 3 % Normal 2-9 [facility] Comment on above: Order Comment: Recei mandy comment: User comments: Slide comments: Performed By: #### C 120, C141, C116, C406, C4521, C118, C47, C4523, C215 #### [facility] [address] [place] [address] Neutrophils 91 % High 42-75 [facility] Comment on above: Order Comment: Recei mandy comment: User comments: Slide comments: Performed By: #### C 120, C141, C116, C406, C4521, C118, C47, C4523, C215 #### [facility] [address] [place] [address] Ovalocytes SLIGHT Normal [facility] Comment on above: Order Comment: Recei mandy comment: User comments: Slide comments: Performed By: #### C 120, C141, C116, C406, C4521, C118, C47, C4523, C215 #### [facility] [address] [place] [address] Performed By: #### C 709 #### [facility] [address] [place] [address] Poikilocytosis SLIGHT Normal [facility] Comment on above: Order Comment: Recei mandy comment: User comments: Slide comments: Performed By: #### C 120, C141, C116, C406, C4521, C118, C47, C4523, C215 #### [facility] [address] [place] [address] Performed By: #### C 709 #### [facility] [address] [place] [address] Polychromasia SLIGHT Normal [facility] Comment on above: Order Comment: Jorge L galvan comment: User comments: Slide comments: Performed By: #### C 120, C141, C116, C406, C4521, C118, C47, C4523, C215 #### [facility] [address] [place] [address] Performed By: #### C 709 #### [facility] [address] [place] [address] Uric Acidon 01-18-2020 Urate [Mass/Vol] 5.2 mg/dL Normal 2.5-6.2 [facility] Comment on above: Performed By: #### C 120, C141, C116, C406, C4521, C118, C47, C4523, C215 #### [facility] [address] [place] [address] Vital Signs Date Time Vital Sign Value Performing Clinician Faci lity 01-06-2024 14:30-0500 Body height 162.6 cm Leighton Horvath MD Work Phone: [facility] 01-06-2024 14:30-0500 Body mass index (BMI) [Ratio] 29.02 kg/m2 Leighton Horvath MD Work Phone: [facility] 01-06-2024 14:30-0500 Body temperature 97.7 [degF] Leighton Horvath MD Work Phone: [facility] 01-06-2024 14:30-0500 Body weight 76.7 kg Leighton Horvath MD Work Phone: [facility] Encounters Encounter Date Encounter Type Care Provider Facility Start: 01-06-2024 End: 01-07-2024 ambulatory [facility] Start: 01-06-2024 End: 01-06-2024 Office outpatient visit 15 minutes Leighton Horvath MD Work Phone: [facility] Comment on above: Closed displaced fra cture of right acetabulum with routine healing, unspecified portion of acetabulum, subsequent encounter (Primary Dx) Start: 12-09-2023 End: 12-09-2023 ambulatory ANTONIO Stoddard [facility]PL[facility] Not Available Start: 10-21-2023 End: 10-21-2023 ambulatory ANTONIO Stoddard APLING Not Available Start: 09-30-2023 End: 10-01-2023 ambulatory ANTONIO Stoddard APLING Not Available Start: 09-20-2023 End: 09-20-2023 ambulatory [facility] Start: 03-08-2023 End: 03-08-2023 ambulatory BECK RENEE Facility:[facility] Start: 03-01-2023 End: 03-01-2023 ambulatory BECK RENEE Facility:[facility] Start: 02-19-2023 ambulatory BECK RENEE Facility: [facility] Start: 02-06-2023 End: 02-06-[address] SON HADLEY Facility:[facility] Start: 01-18-2023 End: 01-19-2023 ambulatory BECK RENEE Facility:[facility] Start: 01-18-2023 End: 01-18-2023 ambulatory BECK RENEE Facility:[facility] Start: 12-25-2022 End: 12-25-2022 [facility] Start: 06-26-2022 End: 06-27-2022 ambulatory YOU BARILLAS Facility:[facility] Start: 05-08-2022 End: 05-09-[address] BENNIE ALBRIGHT . Facility:[facility] Start: 04-03-2022 End: 04-18-2022 ambulatory LOU RANDHAWA Facility:[facility] Start: 04-01-2022 End: 04-16-2022 Evaluation and management of inpatient Genaro Torrezd Facility:[facility] Start: 03-22-2022 End: 04-01-2022 Evaluation and management of inpatient DR FARSHAD DONALDSON . Facility:[facility] Start: 11-02-2021 ambulatory CHICARO MARIANOCHELI Facility :[facility] Start: 08-17-2021 ambulatory [facility] Facility:[facility] Start: 07-21-2020 End: 07-21-2020 Patient encounter procedure ARA COFFMAN [facility] Procedures Date Procedure Procedure Detail Performing Clinician Start: 01-06-2024 Follow-up visit Follow-up LEIGHTON HORVATH Start: 04-03-2022 Antibody screen LOU Stephen CRISTY Comment on above: Performed By: #### [id number] #### [address] Plan of Treatment Date Care Activity Detail Author Start: 01-06-2025 Adult BMI Screening Adult BMI Screening [facility] [employer] Start: 01-06-2025 Tobacco Screening Tobacco Screening [facility] Start: 07-30-2024 End: 07-30-2024 Patient encounter procedure 07/30/2024 1:00 PM EDT Office Visit Amairani Lowry [facility] [address] [place] [id number] Laurel Mueller MD [address] [place] [address] [address] [place] [address] Amairani Lowry [facility] Start: 07-19-2023 COVID-19 Vaccine ( season) COVID-19 Vaccine ( season) [facility] [employer] [facility] Start: 07-19-2023 Influenza vaccination Influenza Vaccine [facility] [employer] [facility] Start: 07-09-2017 Administration of varicella zoster vaccine Zoster (Shingles) [facility] (1 of 2[facility] Start: 2004 Fall Risk Screening Fall [facility] Start: 1958 DTaP,Tdap and Td Vaccines (1 - Tdap) DTaP,Tdap and Td Vaccines (1 - Tdap) [facility] Start: 1957 Adult BMI Follow Up Plan Adult BMI Follow Up Plan [facility] Start: 1951 Depression Screening Depression Screening [facility] Start: 1940 Medicare Annual Wellness Visit Medicare Annual Wellness Visit [facility] Immunizations Immunization Date Immunization Notes Care Provider Junior tompkins 03-08-2022 COVID-19, mRNA, LNP- S, PF, 100mcg/0.5mL Dose Leighton Horvath MD Work Phone: [facility] 08-10-2021 pneumococcal conjuga te vaccine, 13 faraz Horvath MD Work Phone: [facility] 08-22-2020 Influenza, High-dose , Quadrivalent Leighton Horvath MD Work Phone: [facility] 08-22-2020 pneumococcal conjuga te vaccine, 13 faraz Horvath MD Work Phone: [facility] 08-22-2020 influenza virus vacc ine, unspecified formulation Leighton Horvath MD Work Phone: [facility] 05-10-2020 pneumococcal polysaccharide vaccine, 23 emmieent Leighton Horvath MD Work Phone: [facility] 09-21-2019 influenza, high dose seasonal, preservative-free Leighton Horvath MD Work Phone: [facility] 10-21-2018 influenza, high dose seasonal, preservative-free Leighton Horvath MD Work Phone: [facility] 05-14-2017 zoster vaccine, live Leighton Horvath MD Work Phone: [facility] 05-14-2017 zoster vaccine, unspecified formulation Leighton Horvath MD Work Phone: [facility] 09-10-2016 influenza, high dose seasonal, preservative-free Leighton Horvath MD Work Phone: [facility] 09-10-2016 pneumococcal conjuga te vaccine, 13 faraz Horvath MD Work Phone: [facility] 09-01-2015 influenza, high dose seasonal, preservative-free Leighton Horvath MD Work Phone: [employer] 08-26-2014 influenza, seasonal, injectable Leighton Horvath MD Work Phone: [employer] 08-26-2014 pneumococcal polysaccharide vaccine, 23 valent Leighton Horvath MD Work Phone: [employer] 08-26-2013 influenza, seasonal, injectable [facility] P[facility] Date Payer Category Payer Medicare [employer] MEDICARE UHC MEDICARE ADVANTAGE PPO [id number] 2022-Present [phone] [address] [address] [place] [address] [id number] 2021 Medicaid MEDICAID [facility] EDICAID [id number] 2021-Present [phone] [address] [place] [address] [id number] 2019 Medicare [id number] 1960 Medicaid [id number] 1959 Medicare [id number] 1959 Private Health Insurance [id number] 1939 Unknown [id number] 2.16.840.1.408700.3.579. 2.900 1939 Unknown [id number] 2.16.840.1.198836.3.579. 2.594 1939 Unknown [id number] 2.16.840.1.954121.3.579. 2.594 1939 Unknown [id number] 2.16.840.1.092919.3.579. 2.594 1939 Unknown [id number] 2.16.840.1.036034.3.579. 2.647 1939 Unknown [id number] 2.16.840.1.135570.3.579. 2.647 1939 Unknown [id number] 2.16.840.1.859013.3.579. 2.647 1939 Unknown [id number] 2.16.840.1.332386.3.579. 2.593 1939 Unknown [id number] 2.16.840.1.133680.3.579. 2.593 1939 Unknown [id number] 2.16.840.1.595905.3.579. 2.593 1939 Unknown [id number] 2.16.840.1.744504.3.579. 2.593 1939 Unknown [id number] 2.16.840.1.277734.3.579. 2.593 1939 Unknown [id number] 2.16.840.1.907845.3.579. 2.593 1939 Unknown [id number] 2.16.840.1.885445.3.579. 2.593 1939 Unknown [id number] 2.16.840.1.908838.3.579. 2.593 1939 Unknown [id number] 2.16.840.1.662989.3.579. 2.1259 1939 Unknown [id number] 2.16.840.1.614556.3.579. 2.1259 1939 Unknown [id number] 2.16.840.1.543901.3.579. 2.1259 1939 Unknown [id number] 2.16.840.1.850295.3.579. 2.1259 1939 Unknown [id number] 2.16.840.1.047541.3.579. 2.1286 1939 Unknown [id number] 2.16.840.1.398397.3.579. 2.1286 Social History Date Type Detail Facility Start: 02-07-2023 Tobacco smoking stat NHIS Ex-smoker [facility] History of tobacco use Current smoker [facility] History of tobacco use Cigarette Smoker [facility] Start: 02-07-2023 Tobacco use and exposure Smokeless tobacco non-user [facility] Start: 01-07-2024 Alcohol intake Ex-drinker (finding) [facility] Start: 01-06-2024 End: 01-07-2024 History of Social function [facility] Start: 01-06-2024 End: 01-07-2024 Tobacco use panel [facility] Are you worried or concerned that in the next two months you may not have stable housing that you own, rent or stay in as a part of a household? No [facility] Start: 1940 Sex Assigned At Female [facility] Medical Equipment Procedure Code Equipment Code Equipment Origin al Text Equipment Identifier Dates Plate Bn [id number] m / Tblr 6 Hl Colr Ss .5mm 12mm Ns - [id number] Start: 02-08-2023 Screw Bn 26mm 4m m 6mm Sm Hex Sckt Canc Ss 2.5mm Ft Ns Sm - [id number] Start: 02-08-2023 Goals Date Patient Goal Desired Activity /State Personal health goal Comment on above: Formatting of this n ote might be different from the original. Evaluation of progress towards goal: Patient and family are planning to transition to SNF at discharge. History of Present illness Narrative 01-06-2024 Domonique Fernandez MD - 01/06/2024 2:30 PM Anabell Horvath MD - 01/06/2024 2:30 PM EST [...] Leighton Horvath MD documented in this encounter [employer] Progress note 09-20-2023 Note Date & Type Note Facility 09-20-2023 Note [place] Cardiology - [facility] Subjective María Elena Tafoya is a [...] in March 2022 was admitted to the [facility] and then [facility] with acute gallstone pancreatitis, acute blood loss [...] thickness/hypertrophy. Systolic function (more content not included)... [facility] Progress note 12-25-2022 Note Date & Type Note Facility 12-25-2022 Note Cardiovascular Medic ine [facility] SUBJECTIVE Chief Complaint Patient presents with Atrial Fibrillation María Elena Tafoya is a 82 y.o. female here for follow-up. HPI She is an 82-year-old woman who was admitted in March 2022 to [facility] and then [facility] with acute gallstone pancreatitis, acute blood loss [...] POC 06/26/2022 11 (more content not included)... [facility] Progress note 12-25-2022 Note Date & Type Note Facility 12-25-2022 Note Patient here for fol low up [place] on event monitor per Dr. Leos. Patient denies chest pain and SOB. Feels good. Review of Systems All other systems reviewed and are negative. [facility] Discharge summary note 04-16-2022 Note Date & Type Note Facility 04-16-2022 Note MR#: [id number] [facility] Pt. Name: María Elena Tafoya Admitted: [...] Gordillo MD Date Trans: 04/16/2022 09:55 A/erik [id number] cc: Bennie Albright M.D. [address] [address] [facility] Discharge summary note 04-13-2022 Note Date & Type Note Facility 04-13-2022 Note MR#: [id number] [facility] Pt. Name: María Elena Tafoya Admitted: [...] history as above, who was transferred from [facility] secondary to gallstone induced acute pancreatitis. [...] sign and the patient was admitted to [facility] for further treatment. She was aggressively rehydrated [...] to repeat a voiding trial at the retirement in 1-3 days and follow up with provider at that facility, however, her discharge is currently pending precert, so if she does remain at this facility, we may also just discontinue (more content not included)... [facility] Evaluation note Note Date & Type Note Facility Evaluation note Diagnosis Closed displaced fracture of right acetabulum with routine healing, unspecified portion of acetabulum, subsequent encounter- Primary documented in this encounter [employer] Instructions Note Date & Type Note Facility Instructions Not on filedocumented in this en counter [facility] Summary Purpose Family History No Family History Records FoundNo Family History Records FoundNo Family History Records FoundNo Family History Records FoundNo Family History Records FoundNo Family History Records FoundNo Family History Records FoundNo Family History Records FoundNo Family History Records FoundNo Family History Records Found Advance Directives No Advanced Directives Records FoundDocuments on File Type Date Recorded 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 Expl 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 Advance Directive 01/18/2022 1:07 PM DNR Advance Directive 01/18/2022 11:00 AM [employer] 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 Latest Code Status on File Code Status Date Activated Date Inactivated Comments Full Code 02/07/2023 12:03 AM 02/12/2023 3:45 PM Healthcare Agents on File Name Relationship Healthcare Agent Relationship Communication Andreea Liz Health Care Agent .Schvey Additional Source Comments INFORMATION SOURCE (unrecogn ized section and content) DATE CREATED AUTHOR 02/04/2020 [facility] DATE CREATED AUTHOR AUTHOR'S ORGANIZ ATION 08/23/2020 [facility] DATE CREATED AUTHOR AUTHOR'S ORGANIZ ATION 09/28/2020 [facility] DATE CREATED AUTHOR AUTHOR'S ORGANIZ ATION 02/12/2021 [facility] DATE CREATED AUTHOR AUTHOR'S ORGANIZ ATION 02/07/2022 [facility] DATE CREATED AUTHOR AUTHOR'S ORGANIZ ATION 07/13/2022 [facility] DATE CREATED AUTHOR AUTHOR'S ORGANIZ ATION 03/15/2023 [facility] DATE CREATED AUTHOR AUTHOR'S ORGANIZ ATION 09/21/2023 [facility] DATE CREATED AUTHOR AUTHOR'S ORGANIZ ATION 12/09/2023 [facility] DATE CREATED AUTHOR AUTHOR'S ORGANIZ ATION 01/08/2024 [facility] Reason for Visit (unrecogniz ed section and [...] BE BASED ON THE PRIMARY CLINICAL RECORDS. [facility] [employer] [facility]. provides no warranty or guarantee of the accuracy or completeness of information in this document.
[2024-02-26 09:06] LABS: Hematocrit 48.7 % (36.0-48.0); Hemoglobin 14.8 g/dL (12.0-16.0); Mean Corpuscular HGB Conc 30.4 g/dL (29.9-35.2); Mean Corpuscular Hemoglobin 25.9 pg (26.7-34.0); Mean Corpuscular Volume 85.1 fL (81.0-99.0); Mean Platelet Volume 10.2 fL (9.5-13.5); Platelet Count 385 10^3/uL (150-450); Red Blood Count 5.72 10^6/uL (4.20-5.40); Red Cell Distribution Width 18.8 % (11.0-15.0); White Blood Count 27.6 10^3/uL (4.0-11.0)
[2024-02-26 09:46] LABS: Band Neutrophils Absolute 0.8 10^3/uL (0.0-0.3); Lymphocytes Absolute Manual 2.76 10^3/uL (1.20-3.80); Monocytes Absolute Manual 0.55 10^3/uL (0.30-0.80); Segmented Neut Absolute Manual 23.46 10^3/uL (1.4-6.5)
[2024-02-26 09:47] LABS: Anisocytosis 1+; Microcytosis 1+
== END 2024-02-26 06:04 | disposition home or self-care (01) ==
LOC: LAB 06:03
PROVIDERS: PCP Family Medicine; Visit Provider Family Medicine
DX: I10 Essential (primary) hypertension (principal)
CPT/HCPCS: 36415; 85007; 85027

== ENCOUNTER 2024-02-29 09:34 | Inpatient (IN) | payer MEDICARE, MEDICAID, SELFPAY ==
[2024-02-29] VITALS (37 sets, daily range): BP systolic 110–159; BP diastolic 63–88; PULSE 74–110; TEMP 36.1–38.2; O2SAT 89–98; BMI 29.6; BMI 25.9
--- OUTSIDE RECORDS SUMMARY | 2024-02-29 09:42 | XMS_ITS | CCD ---
Author Organization [facility] Care Team Providers Care Social Service Assistant Name Role Phone ARA ROBB Attending Unavailable PETRA ARAIZA Attending Unavailable SELF, SELF Referring Unavailable [facility] Referring Unavailable PETRA ARAIZA [...] Admitting Unavaildario WATSON ., TRUPTI MAKI Consulting Unavaildario EDDY, FERMÍN [...] sources) Ciprofloxacin Drug Allergy 03-23-2022 [facility] Repository (2 sources) Dexamethasone; Translations: [DEXAMETHASONE] Drug Allergy 06-27-2023 [facility] (2 sources) Erythromycin; Translations: [ERYTHROMYCIN BASE] Drug Allergy 06-27-2023 [facility] (2 sources) Neomycin; Translations: [NEOMYCIN SULFATE] Drug Allergy 06-27-2023 [facility] (2 sources) Polymyxin B; Translations: [POLYMYXIN B] Drug Allergy 06-27-2023 [facility] (2 sources) Tobramycin; Translations: [TOBRAMYCIN] Drug Allergy 06-27-2023 [facility] Medications Current Medications Medication Drug Class(es) [...] 30 days. 0 Active polyethylene glycol 3350 46859 mg powder for oral solution (1 source) Osmotic Laxative polyethylene gl ycol (GLYCOLAX) 17 gram packet Take 17 g by mouth daily as needed (constipation). 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; Translations: [SENIOR LIVING CURRENT USE OF ASPIRIN] Onset: 03-06-2023 Episodic Other aftercare (1 source) senior living (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 of non-steroidal anti-inflammatories (NSAID); Translations: [SENIOR LIVING USE NSAID] Onset: 02-08-2023 Episodic Other connective [...] Onset: 04-05-2022 Episodic Other aftercare (1 source) senior living (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 of insulin; Translations: [SENIOR LIVING CURRENT USE OF INSULIN] Onset: 04-05-2022 Episodic Other aftercare (1 source) senior living (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 of anticoagulants; Translations: [IMPREGNATOR OPERATOR CURRNT USE ANTICOAGULANTS] Onset: 04-05-2022 Episodic Other [...] Sanders MD on 01/07/2024 3:35 AM Normal [facility] Office Visiton 09-20-2023 Follow-up visit [id number] Jennifer Tafoya leo Love 1940 F Date Provider Department Center 09/20/2023 MARY LOU FELIZ [facility] Family History Problem Relation Age of Onset Diabetes Sister Diabetes Brother Diabetes Maternal Grandfather Family Status - Relation Status Age at Sister Brother Maternal Grandfather Level of Service:60323 [place] OFFICE/OUTPATIENT ESTABLISHED MOD MDM 30-39 MIN Reason for Visit and Comments: Follow-up [816578] Normal [facility] CBC W MANUAL DIFFon 03-08-20 23 ANISOCYTOSIS 1+ Normal [facility] Comment on above: Performed By: #### C BCJERSON ####[facility] [address] [place] [address]Dr. Bhavani Barragan ATYPICAL LYMPH # Normal [facility] Comment on above: Performed By: #### C BCMAN ####[facility] Vlfdcjgign[address] [place] [address]Dr. Bhavani Barragan ATYPICAL LYMPH % Normal [facility] Comment on above: Performed By: #### C BCMAN ####[facility] Ewsucjupwx04[address] [place] [address]Dr. Bhavani Barragan BAND # 1.3 103/ul Critically high 0.0-0.3 [facility] Comment on above: Performed By: #### C BCMAN ####[facility] F[address]uhtogop[address] [place] [address]Dr. Bhavani Barragan BAND % 4 % Normal 0-5 [facility] Comment on above: Performed By: #### C BCMAN ####[facility] Hgxwnvkdrh8260 [place] [address]Dr. Bhavani Barragan BASOM # 0.00 103/ul Normal 0.00-0.10 [facility] Comment on above: Performed By: #### C BCJERSON ####[facility] Mgubcwzalk18[address] [place] [address]Dr. Bhavani Barragan BASOM % 0.0 % Critically low 0.2-2.0 [facility] Comment on above: Performed By: #### C BCJERSON ####[facility] Ldtuqtmwkx4[address] [place] [address]Dr. Bhavani Barragan BLAST # Normal [facility] Comment on above: Performed By: #### C BCJERSON ####[facility] Uopeekymdw[address] [place] [address]Dr. Bhavani Barragan BLAST % Normal [facility] Comment on above: Performed By: #### C OMID ####[facility] Zscwlts[address] [place], [place] [address]Dr. Bhavani Barragan CORRECTED WBC Normal 4.0-11.0 [facility] Comment on above: Performed By: #### C OMID ####[facility] Vgoqmrzwcr[address] [place], [place] [address]Dr. Bhavani Barragan EOS # 0.00 103/ul Normal 0.00-0.70 [facility] Comment on above: Performed By: #### C OMID ####[facility] Wwrv[address]ud[address] [place], [place] [address]Dr. Bhavani Barragan EOS% 0.0 % Critically low 0.9-7.0 [facility] Comment on above: Performed By: #### C OMID ####[facility] Ijih[address] [place], [place] [address]Dr. Bhavani Barragan HCT 38.1 % Normal 36.0-48.0 [facility] Comment on above: Performed By: #### C OMID ####[facility] Xjpdtcprft[address] [place], [place] [address]Dr. Bhavani Barragan HGB 11.6 g/dl Critically low 12.0-16.0 [facility] Comment on above: Performed By: #### C OMID ####[facility] [address]pe[address] [place], [place] [address]Dr. Bhavani Barraagn LYMPHM # 1.58 103/ul Normal 1.20-3.80 [facility] Comment on above: Performed By: #### C OMID ####[facility] [address]w74[address] [place] [id number]. Bhavani Barragan LYMPHM% 5.0 % Critically low 20.5-60.0 [facility] Comment on above: Performed By: #### C OMID ####[facility] Algf[address]qbrs96[address] [place] [id number]. Bhavani Barragan MCH 29.7 pg Normal 26.7-34.0 [facility] Comment on above: Performed By: #### C OMID ####[facility] Uxsxegkmng54[address] [place] [address]Dr. Bhavani Barragan MCHC 30.4 g/dl Normal 29.9-35.2 [facility] Comment on above: Performed By: #### Jany ANNE ####[facility] Otckjgxrgd6[address] [place] [address]Dr. Bhavani Barragan MCV 97.7 fL Normal 81.0-99.0 [facility] Comment on above: Performed By: #### Jany ANNE ####[facility] Hjoylimvka[address] [place] [address]Dr. Bhavani Barragan METAMYELOCYTE # Normal [facility] Comment on above: Performed By: #### Jany ANNE ####[facility] [address]ypksqbmbp64[address] [place] [address]Dr. Bhavani Barragan METAMYELOCYTE % Normal [facility] Comment on above: Performed By: #### Jany ANNE ####[facility] [address]wcqptqqtw1773 [place] [id number]. Bhavani Barragan MONOM# 0.95 103/ul Critically high 0.30-0.80 [facility] Comment on above: Performed By: #### C OMID ####[facility] Sqemtybmrx[address] [place] [address]Dr. Bhavani Barragan MONOM% 3.0 % Normal 1.7-12.0 [facility] Comment on above: Performed By: #### C OMID ####[facility] [address] [place], [place] [address]Cc. Bhavani Barragan MPV 10.6 fL Normal 9.5-13.5 [facility] Comment on above: Performed By: #### C OMID ####[facility] [address]rm[address] [place], [place] [address]Hm. Bhavani Barragan MYELOCYTE # Normal [facility] Comment on above: Performed By: #### C OMID ####[facility] Muediooinr4976 [place], [place] [address]Dm. Bhavani Barragan MYELOCYTE % Normal [facility] Comment on above: Performed By: #### C OMID ####[facility] Lwlsuzeqxt35[address] [place] [id number]. Bhavani Barragan NRBC Normal [facility] Comment on above: Performed By: #### C OMID ####[facility] Qrsyqpqobl2446 [place] [id number]. Bhavani Barragan PLT 280 103/ul Normal 150-450 [facility] Comment on above: Performed By: #### C OMID ####[facility] Esrgevtrin37[address] [place] [id number]. Bhavani Barragan RBC 3.90 106/ul Critically low 4.20-5.40 [facility] Comment on above: Performed By: #### C OMID ####[facility] Ewluwxbnwl3[address] [place] [id number]. Bhavani Barragan RDW 18.2 % Critically high 11.0-15.0 [facility] Comment on above: Performed By: #### C OMID ####[facility] Ztmbluimfm0890 [place] [id number]. Bhavani Barragan SEG # 27.90 103/ul Critically high 1.40-6.50 [facility] Comment on above: Performed By: #### C OMID ####[facility] Objxiwwhku77[address] [place] [id number]. Bhavani Barragan SEG % 88.0 % Critically high 43.0-75.0 [facility] Comment on above: Performed By: #### C OMID ####[facility] Ilzmbadyhp8425 [place] [id number]. Bhavani Barragan WBC 31.7 103/ul Critically high 4.0-11.0 [facility] Comment on above: Performed By: #### C OMID ####[facility] Zcecdvkdla6743 [place] [phone]. Bhavani Barragan PERIPHERAL SMEARon 3 Pathologist Cyto stain Nom (Cvx/Vag) [ID] DR. AFTAB SCHAFER Normal [facility] Comment on above: Result Comment: Revi ew of peripheral smear reveals RBCs with anisocytosis. The platelets areadequate in number with normal morphology. There is leukocytosis withneutrophilia. The WBC morphology is unremarkable. No atypical lymphocytes orimmature blasts are seen. The findings are suggestive of a reactive process.Clinical correlation is recommended. Performed By: #### P ERSMR ####[facility] [address]umk[address] [place] [address]Dr. Bhavani Barragan CBC W MANUAL DIFFon 03-01-20 23 ANISOCYTOSIS 1+ Normal [facility] Comment on above: Performed By: #### C OMID ####[facility] Iukwxstrzi0433 [place] [id number]. Bhavani Barragan ATYPICAL LYMPH # Normal [facility] Comment on above: Performed By: #### C OMID ####[facility] C[address]pguuud98[address] [place] [phone]. Bhavani Barragan ATYPICAL LYMPH % Normal [facility] Comment on above: Performed By: #### C OMID ####[facility] Vylxhckqca5633 [place] [phone]. Bhavani Barragan BAND # 1.8 103/ul Critically high 0.0-0.3 [facility] Comment on above: Performed By: #### C OMID ####[facility] Wmuhvcvovn29[address] [place] [phone]. Bhavani Barragan BAND % 5 % Normal 0-5 [facility] Comment on above: Performed By: #### C OMID ####[facility] Pchjdwggok3440 [place] [phone]. Bhavani Barragan BASOM # 0.00 103/ul Normal 0.00-0.10 [facility] Comment on above: Performed By: #### C BCMAN ####[facility] Tvycnmoxmt5984 [place] [phone]. Bhavani Barragan BASOM % 0.0 % Critically low 0.2-2.0 [facility] Comment on above: Performed By: #### C BCMAN ####[facility] Unjtyabnpo19[address] [place] [address]Dr. Bhavani Barragan BLAST # Normal [facility] Comment on above: Performed By: #### C BCMAN ####[facility] Wekiaukdct[address] [place] [address]Dr. Bhavani Barragan BLAST % Normal [facility] Comment on above: Performed By: #### C BCJERSON ####[facility] Hztwrqdyld[address] [place], [place] [address]Dr. Bhavani Barragan CORRECTED WBC Normal 4.0-11.0 [facility] Comment on above: Performed By: #### C BCJERSON ####[facility] Plxnlvmhoj[address] [place] [address]Dr. Bhavani Barragan EOS # 0.00 103/ul Normal 0.00-0.70 [facility] Comment on above: Performed By: #### C BCMAN ####[facility] Ktudvqwdbx7798 [place] [address]Dr. Bhavani Barragan EOS% 0.0 % Critically low 0.9-7.0 [facility] Comment on above: Performed By: #### C BCMAN ####[facility] Qbresjmudn8881 [place] [address]Dr. Bhavani Barragan HCT 32.6 % Critically low 36.0-48.0 [facility] Comment on above: Performed By: #### C BCMAN ####[facility] [address]vzh[address] [place], [place] [address]Dr. Bhavani Barragan HGB 10.0 g/dl Critically low 12.0-16.0 [facility] Comment on above: Performed By: #### Jany ANNE ####[facility] Ekgeovoegk[address] [place] [phone]. Bhavani Barragan LYMPHM # 1.75 103/ul Normal 1.20-3.80 [facility] Comment on above: Performed By: #### Jany ANNE ####[facility] Agiyqrpskn4458 [place] [phone]. Bhavani Barragan LYMPHM% 5.0 % Critically low 20.5-60.0 [facility] Comment on above: Performed By: #### C OMID ####[facility] Warrpjxvpu3047 [place] [phone]. Bhavani Barragan MCH 29.6 pg Normal 26.7-34.0 [facility] Comment on above: Performed By: #### Jany ANNE ####[facility] Pwthgithka1324 [place] [phone]. Bhavani Barragan MCHC 30.7 g/dl Normal 29.9-35.2 [facility] Comment on above: Performed By: #### Jany ANNE ####[facility] Tzzjeoyrwc5973 [place] [phone]. Bhavani Barragan MCV 96.4 fL Normal 81.0-99.0 [facility] Comment on above: Performed By: #### Jany ANNE ####[facility] Fhpdeixitp4280 [place] [phone]. Bhavani Barragan METAMYELOCYTE # Normal [facility] Comment on above: Performed By: #### Jany ANNE ####[facility] Wluxhspoih9415 [place] [phone]. Bhavani Barragan METAMYELOCYTE % Normal [facility] Comment on above: Performed By: #### Jany ANNE ####[facility] Dcotxfxylp8878 [place] [phone]. Bhavani Barragan MONOM# 0.70 103/ul Normal 0.30-0.80 [facility] Comment on above: Performed By: #### Jany ANNE ####[facility] Jhqsoxwmcm5439 [place] [phone]. Bhavani Barragan MONOM% 2.0 % Normal 1.7-12.0 [facility] Comment on above: Performed By: #### C OMID ####[facility] Jlfszmubbp3236 [place] [phone]. Bhavani Barragan MPV 9.8 fL Normal 9.5-13.5 [facility] Comment on above: Performed By: #### C OMID ####[facility] Ycckvmengd0985 [place] [phone]. Bhavani Barragan MYELOCYTE # Normal [facility] Comment on above: Performed By: #### C OMID ####[facility] Ylbmbfybaa6933 [place] [phone]. Bhavani Barragan MYELOCYTE % Normal [facility] Comment on above: Performed By: #### C OMID ####[facility] Gwytxjeqcf1090 [place] [phone]. Bhavani Barragan NRBC Normal [facility] Comment on above: Performed By: #### C OMID ####[facility] Tnfsavcutn2599 [place] [phone]. Bhavani Barragan PLT 382 103/ul Normal 150-450 [facility] Comment on above: Performed By: #### C OMID ####[facility] Baovsxoozh0783 [place] [phone]. Bhavani Barragan RBC 3.38 106/ul Critically low 4.20-5.40 [facility] Comment on above: Performed By: #### C OMID ####[facility] Zinttnpiti3972 [place] [phone]. Bahvani Barragan RDW 17.7 % Critically high 11.0-15.0 [facility] Comment on above: Performed By: #### C OMID ####[facility] Vumdamwhbj2859 [place] [phone]. Bhavani Barragan SEG # 30.80 103/ul Critically high 1.40-6.50 The [facility] Comment on above: Performed By: #### C OMID ####[facility] Tsqeebvgjd6311 [place] [address]Dr. Bhavani Barragan SEG % 88.0 % Critically high 43.0-75.0 [facility] Comment on above: Performed By: #### C OMID ####[facility] Cedxnrfipv16[address] [place] [address]Dr. Bhavani Barragan WBC 35.0 103/ul Critically high 4.0-11.0 [facility] Comment on above: Performed By: #### C OMID ####[facility] Bidpjvhwkb1212 [place] [address]Dr. Bhavani Barragan PROF 14(COMP METB)on 023 Albumin [Mass/Vol] 2.6 g/dL Critically low 3.4-5.0 [facility] Comment on above: Performed By: #### C MP, TSH ####[facility] Shqtpovkyp9582 [place] [address]Dr. Bhavani Barragan Albumin/Globulin [Mass ratio] 0.6 {ratio} Normal [facility] Comment on above: Performed By: #### C MP, TSH ####[facility] Zvcvjlfmwv7263 [place] [address]Dr. Bhavani Barragan ALP [Catalytic activity/Vol] 117 U/L Critically high 46-116 [facility] Comment on above: Performed By: #### C MP, TSH ####[facility] Xacissobcd2235 [place] [address]Dr. Bhavani Barragan ALT [Catalytic activity/Vol] 11 U/L Critically low 14-59 [facility] Comment on above: Performed By: #### C MP, TSH ####[facility] Ycenvcqghp2044 [place] [address]Dr. Bhavani Barragan Anion gap [Moles/Vol] 13.0 mmol/L Normal [facility] Comment on above: Performed By: #### C MP, TSH ####[facility] Aftfqetsuw9431 [place] [address]Dr. Bhavani Barragan AST [Catalytic activity/Vol] 19 U/L Normal 15-37 [facility] Comment on above: Performed By: #### C MP, TSH ####[facility] Kwpdlnhksj2674 [place] [phone]. Bhavani Barragan Bilirubin [Mass/Vol] 0.4 mg/dL Normal 0.2-1.0 [facility] Comment on above: Performed By: #### C MP, TSH ####[facility] [address]qrm[address] [place], [place] [address]Dr. Bhavani Barragan Calcium [Mass/Vol] 8.9 mg/dL Normal 8.5-10.1 [facility] Comment on above: Performed By: #### C MP, TSH ####[facility] Xoyrytizml7909 [place] [address]Dr. Bhavani Barragan Chloride [Moles/Vol] 103 mmol/L Normal 98-107 [facility] Comment on above: Performed By: #### C MP, TSH ####[facility] Sy[address]pebacz[address] [place], [place] [address]Dr. Bhavani Barragan CO2 [Moles/Vol] 26.8 mmol/L Normal 21.0-32.0 [facility] Comment on above: Performed By: #### C MP, TSH ####[facility] Lclfjdmupf[address] [place], [place] [address]Dr. Bhavani Barragan Creatinine [Mass/Vol] 1.44 mg/dL Critically high 0.55-1.02 [facility] Comment on above: Performed By: #### C MP, TSH ####[facility] Qztvyzmkpn[address] [place], [place] [address]Dr. Bhavani Barragan EGFR-AF MOZAMBICAN 42 mL/min/1.73m2 Critically low >=60 [facility] Comment on above: Performed By: #### C MP, TSH ####[facility] Fuwolpbfqm[address] [place], [place] [address]Dr. Bhavani Barragan EGFR-NON AF MOZAMBICAN 35 mL/min/1.73m2 Critically low >=60 [facility] Comment on above: Performed By: #### C MP, TSH ####[facility] Wsbgejjxrz[address] [place], [place] [address]Dr. Bhavani Barragan Globulin (S) [Mass/Vol] 4.4 g/dL Normal [facility] Comment on above: Performed By: #### C MP, TSH ####[facility] Kfydqxnuog0498 [place] [phone]. Bhavani Barragan Glucose [Mass/Vol] 90 mg/dL Normal 74-106 [facility] Comment on above: Performed By: #### C MP, TSH ####[facility] Okccuyorso0549 [place] [address]Dr. Bhavani Barragan Potassium [Moles/Vol] 4.8 mmol/L Normal 3.5-5.1 [facility] Comment on above: Performed By: #### C MP, TSH ####[facility] Ofnipxgqch0095 [place] [address]Dr. Bhavani Barragan Protein [Mass/Vol] 7.0 g/dL Normal 6.4-8.2 [facility] Comment on above: Performed By: #### C MP, TSH ####[facility] Jplpnkgmmb[address] [place], [place] [address]Dr. Bhavani Barragan Sodium [Moles/Vol] 138 mmol/L Normal 136-145 [facility] Comment on above: Performed By: #### C MP, TSH ####[facility] Jnvrdmlyjm[address] [place], [place] [address]Dr. Bhavani Barragan Urea nitrogen [Mass/Vol] 32.0 mg/dL Critically high 7.0-18.0 [facility] Comment on above: Performed By: #### C MP, TSH ####[facility] Vaoomdhrwm[address] [place], [place] [address]Dr. Bhavani Barragan Urea nitrogen/Creatinine [Mass ratio] 22.2 mg/mg Normal [facility] Comment on above: Performed By: #### C MP, TSH ####[facility] Plkskcqvbd8218 [place] [address]Dr. Bhavani Barragan TSHon 03-01-2023 TSH 3.630 uIU/mL Normal 0.358-3.740 [facility] Comment on above: Performed By: #### C MP, TSH ####[facility] Bymrounlx[address] [place], [place] [address]Dr. hBavani Barragan CULTURE URINEon 02-09-2023 CULTURE URINE Normal [facility] Comment on above: Performed By: #### U RCX ####[facility] Mcmvrmuhwk2828 [place] [address]Dr. Bhavani Barragan CBC W MANUAL DIFFon 02-07-20 ANISOCYTOSIS 1+ Normal [facility] Comment on above: Performed By: #### C BCMAN ####[facility] Nwkwwioiwj1623 [place] [address]Dr. Bhavani Barragan ATYPICAL LYMPH # Normal [facility] Comment on above: Performed By: #### C BCMAN ####[facility] Anbirt[address]ym[address] [place], [place] [address]Dr. Bhavani Barragan ATYPICAL LYMPH % Normal [facility] Comment on above: Performed By: #### C BCMAN ####[facility] Ladxdbstml[address] [place], [place] [address]Dr. Jayceeroxi Barragan BAND # 1.2 103/ul Critically high 0.0-0.3 [facility] Comment on above: Performed By: #### C BCMAN ####[facility] Byqiibxhai[address] [place], [place] [address]Dr. Bhavani Laurel BAND % 5 % Normal 0-5 [facility] Comment on above: Performed By: #### C BCMAN ####[facility] Nubqgskioc[address] [place], [place] [address]Dr. Bhavani Barragan BASOM # 0.00 103/ul Normal 0.00-0.10 [facility] Comment on above: Performed By: #### C BCMAN ####[facility] Eytgnqqjvh4[address] [place], [place] [address]Dr. Bhavani Laurel BASOM % 0.0 % Critically low 0.2-2.0 The [facility] Comment on above: Performed By: #### C BCMAN ####[facility] Shpluowvhi[address] [place], [place] [address]Dr. Bhavani Barragan BLAST # Normal [facility] Comment on above: Performed By: #### C BCMAN ####[facility] Ltiogaokse[address] [place], [place] [address]Dr. Bhavani Barragan BLAST % Normal [facility] Comment on above: Performed By: #### C OMID ####[facility] Lfkcsgecqn0055 [place] [id number]. Bhavani Barragan CORRECTED WBC Normal 4.0-11.0 [facility] Comment on above: Performed By: #### C OMID ####[facility] Mbvxfbnvci9691 [place] [id number]. Bhavani Barragan EOS # 0.00 103/ul Normal 0.00-0.70 [facility] Comment on above: Performed By: #### C OMID ####[facility] Jzzzbbjcil3857 [place] [id number]. Bhavani Barragan EOS% 0.0 % Critically low 0.9-7.0 The [facility] Comment on above: Performed By: #### C OMID ####[facility] Ufwtqwdndd7554 [place] [id number]. Bhavani Barragan HCT 39.3 % Normal 36.0-48.0 [facility] Comment on above: Performed By: #### C OMID ####[facility] Snvvkjloqp4556 [place] [phone]. Bhavani Barragan HGB 12.6 g/dl Normal 12.0-16.0 [facility] Comment on above: Performed By: #### C OMID ####[facility] Yptdbsqgff7909 [place] [phone]. Bhavani Barragan LYMPHM # 2.11 103/ul Normal 1.20-3.80 [facility] Comment on above: Performed By: #### C OMID ####[facility] Dpkjwbukrh7752 [place] [id number]. Bhavani Barragan LYMPHM% 9.0 % Critically low 20.5-60.0 The [facility] Comment on above: Performed By: #### C OMID ####[facility] Zglmvnwwuv9031 [place] [id number]. Bhavani Barragan MCH 29.6 pg Normal 26.7-34.0 [facility] Comment on above: Performed By: #### C OMID ####[facility] Safecnlvsp1156 [place] [phone]. Bhavani Barragan MCHC 32.1 g/dl Normal 29.9-35.2 [facility] Comment on above: Performed By: #### Jany ANNE ####[facility] Ongbdsaeyu9699 [place] [id number]. Bhavani Barragan MCV 92.3 fL Normal 81.0-99.0 [facility] Comment on above: Performed By: #### C OMID ####[facility] Llhtknmnjt2530 [place] [address]Dr. Bhavani Barragan METAMYELOCYTE # Normal [facility] Comment on above: Performed By: #### Jany ANNE ####[facility] Hdmrgwzqul2617 [place] [address]Dr. Bhavani Barragan METAMYELOCYTE % Normal [facility] Comment on above: Performed By: #### Jany ANNE ####[facility] Bkjrartsli82[address] [place], [place] [address]Dr. Bhavani Barragan MONOM# 0.94 103/ul Critically high 0.30-0.80 [facility] Comment on above: Performed By: #### Jany ANNE ####[facility] Livphwikcp4368[address] [place], [place] [address]Dr. Bhavani Barragan MONOM% 4.0 % Normal 1.7-12.0 [facility] Comment on above: Performed By: #### Jany ANNE ####[facility] Lcssjlvzsu4199 [place] [address]Dr. Bhavani Barragan MPV 11.0 fL Normal 9.5-13.5 [facility] Comment on above: Performed By: #### Jany ANNE ####[facility] Vehjyzngdl[address] [place], [place] [address]Dr. Bhavani Barragan MYELOCYTE # Normal [facility] Comment on above: Performed By: #### Jany ANNE ####[facility] Wvwsoxqncg16[address] [place], [place] [address]Dr. Bhavani Barragan MYELOCYTE % Normal [facility] Comment on above: Performed By: #### C OMID ####[facility] Bbwtygduqe2849 [place], [place] [address]Td. Bhavani Barragan NRBC Normal [facility] Comment on above: Performed By: #### C OMID ####[facility] Pnipxgtaus0485 [place] [phone]. Bhavani Barragan PLT 198 103/ul Normal 150-450 [facility] Comment on above: Performed By: #### C OMID ####[facility] Vymjoiwsvn3634 [place] [phone]. Bhavani Barragan RBC 4.26 106/ul Normal 4.20-5.40 [facility] Comment on above: Performed By: #### C OMID ####[facility] Wpibkvgqth1321 [place] [address]Dr. Bhavani Barragan RDW 16.3 % Critically high 11.0-15.0 [facility] Comment on above: Performed By: #### C OMID ####[facility] Djtqmpqhka7429 [place] [phone]. Bhavani Barragan SEG # 19.19 103/ul Critically high 1.40-6.50 [facility] Comment on above: Performed By: #### C OMID ####[facility] Wtbuamiheo6946 [place] [phone]. Bhavani Barragan SEG % 82.0 % Critically high 43.0-75.0 [facility] Comment on above: Performed By: #### Jany ANNE ####[facility] Egvjvwgjjg1784 [place] [phone]. Bhavani Barragan WBC 23.4 103/ul Critically high 4.0-11.0 [facility] Comment on above: Performed By: #### C OMID ####[facility] Tgwxyaspdr[address] [place], [place] [address]Dr. Bhavani Barragan CT LSPINE WO CONon 3 CT LSPINE WO CON Normal [facility] CT PELVIS WO CONon 3 CT PELVIS WO CON Normal [facility] CULTURE BLOODon 02-06-2023 Microscopic examination of blood, culture Culture Observations: NO GROWTH AT 5 DAYS. Normal The [facility] Comment on above: Performed By: #### B LDCX2 ####[facility] Luarzqihdp9419 [place] [address]Dr. Jayceeroxi Barragan Performed By: #### B LDCX1 ####[facility] Dlctothnqd4670 [place] [address]Dr. Bhavani Barragan Covid-19 PCR (CVDTB)on 01-17 SARS-CoV-2 (COVID-19) RNA MATTHEW+probe Ql (Unsp spec) Not detected Normal NOT DETECTED [facility] Comment on above: Result Comment: When [...] for this test is supported by the [employer] of [employer] and Human Service's declaration that [...] used). Performed By: #### C VDTBH ####[facility] Vncayklrci5475 [place] [address]Dr. Bhavani Laurel ER URINE PROFILEon 3 Bilirubin Ql (U) Negative Normal NEGATIVE [facility] Comment on above: Performed By: #### U MICRO, ERUR ####[facility] Hobibclvzu5360[address] [place], [place] [address]Dr. Bhavani Barragan Clarity (U) SL CLOUDY Abnormal CLEAR [facility] Comment on above: Performed By: #### U MICRO, ERUR ####[facility] Sracgexlkh9158[address] [place], [place] [address]Dr. Yilan Barragan Color (U) LT. YELLOW Normal YELLOW [facility] Comment on above: Performed By: #### U MICRO, ERUR ####[facility] Rhhfrgwgqj486[address] [place], [place] [address]Dr. Bhavani HSUD A micrscopic examination will be performed if indicated. Normal [facility] Comment on above: Performed By: #### U MICRO, ERUR ####[facility] Tsxsbfwgcz098[address] [place], [place] [address]Dr. Bhavani Barragan Glucose Ql (U) Negative Normal NEGATIVE [facility] Comment on above: Performed By: #### U MICRO, ERUR ####[facility] Vfzaubresj5575[address] [place], [place] [address]Dr. Bhavani Barragan Hemoglobin Ql (U) TRACE-INTACT Abnormal NEGATIVE [facility] Comment on above: Performed By: #### U MICRO, ERUR ####[facility] Atagqomyxx4184[address] [place], [place] [address]Dr. Bhavani Barragan Ketones Ql (U) Negative Normal NEGATIVE [facility] Comment on above: Performed By: #### U MICRO, ERUR ####[facility] Njmqftyxnr77[address] [place], [place] [address]Dr. Bhavani Barragan LEUKOCYTES SMALL Abnormal NEGATIVE [facility] Comment on above: Performed By: #### U MICRO, ERUR ####[facility] Yhbhamgejf687[address] [place], [place] [address]Dr. Bhavani Barragan Nitrite Ql (U) Positive Abnormal NEGATIVE [facility] Comment on above: Performed By: #### U MICRO, ERUR ####[facility] Ccuyhqduoz85[address] [place], [place] [address]Dr. Bhavani Barragan pH (U) 6.0 [pH] Normal 5-9 [facility] Comment on above: Performed By: #### U MICRO, ERUR ####[facility] Eqdiscvplg037[address] [place], [place] [address]Dr. Bhavani Barragan Protein (U) [Mass/Vol] 30 mg/dL Abnormal NEGATIVE/ TRACE [facility] Comment on above: Performed By: #### U MICRO, ERUR ####[facility] Ggnwprzekj6788 [place] [address]Dr. Bhavani Barragan SPEC GRAVITY 1.020 Normal 1.005-<=1.02 5 [facility] Comment on above: Performed By: #### U MICRO, ERUR ####[facility] Oixevehlnl9336 [place] [address]Dr. Bhavani Barragan UR MICRO IND INDICATED Normal [facility] Comment on above: Performed By: #### U MICRO, ERUR ####[facility] Bxicxcscmx0390 [place] [address]Dr. Bhavani Barragan Urobilinogen Qn (U) 0.2 {Ridge'U}/dL Normal 0.2 - 1. 0 [facility] Comment on above: Performed By: #### U MICRO, ERUR ####[facility] Fbngymwags7464 [place] [address]Dr. Bhavani Barragan LACTATE/LACTIC ACIDon 2022 Lactate [Moles/Vol] 1.5 mmol/L Normal 0.4-2.0 [facility] Comment on above: Performed By: #### L ACT ####[facility] Plynuswrkx625[address] [place], [place] [address]Dr. Bhavani Barragan PROF CHEM 8 (BAS METB)on Anion gap [Moles/Vol] 14.7 mmol/L Normal [facility] Comment on above: Performed By: #### B MP ####[facility] Bxlhigfiqf3125 [place] [address]Dr. Bhavani Barragan Calcium [Mass/Vol] 8.2 mg/dL Critically low 8.5-10.1 Th e [facility] Comment on above: Performed By: #### B MP ####[facility] Cqcbwwtphw2170 [place] [address]Dr. Bhavani Barragan Chloride [Moles/Vol] 103 mmol/L Normal 98-107 [facility] Comment on above: Performed By: #### B MP ####[facility] Xzjfqfxzrb3820 [place] [address]Dr. Bhavani Barragan CO2 [Moles/Vol] 22.4 mmol/L Normal 21.0-32.0 [facility] Comment on above: Performed By: #### B MP ####[facility] Pyvzlghzqs6594 [place] [phone]. Jayceeroxi Laurel Creatinine [Mass/Vol] 1.39 mg/dL Critically high 0.55-1.02 [facility] Comment on above: Performed By: #### B MP ####[facility] Lrouvodkpq8893 [place] [phone]. Bhavani Barragan EGFR-AF MOZAMBICAN 44 mL/min/1.73m2 Critically low >=60 [facility] Comment on above: Performed By: #### B MP ####[facility] Lkkycejoyi7406 [place] [address]Dr. Bhavani Barragan EGFR-NON AF MOZAMBICAN 36 mL/min/1.73m2 Critically low >=60 [facility] Comment on above: Performed By: #### B MP ####[facility] Ezwrisunah697[address] [place], [place] [address]Dr. Bhavani Barragan Glucose [Mass/Vol] 161 mg/dL Critically high 74-106 [facility] Comment on above: Performed By: #### B MP ####[facility] Mqwjdacytl98[address] [place], [place] [address]Dr. Bhavani Barragan Potassium [Moles/Vol] 4.1 mmol/L Normal 3.5-5.1 [facility] Comment on above: Performed By: #### B MP ####[facility] Zhruplcvfj5265[address] [place], [place] [address]Dr. Bhavani Barragan Sodium [Moles/Vol] 136 mmol/L Normal 136-145 [facility] Comment on above: Performed By: #### B MP ####[facility] Ddgtjfbyid[address] [place], [place] [address]Dr. Bhavani Barragan Urea nitrogen [Mass/Vol] 23.0 mg/dL Critically high 7.0-18.0 [facility] Comment on above: Performed By: #### B MP ####[facility] Ofcafpympe[address] [place], [place] [address]Dr. Bhavani Barragan Urea nitrogen/Creatinine [Mass ratio] 16.5 mg/mg Normal [facility] Comment on above: Performed By: #### B MP ####[facility] Riffriwngt23[address] [place], [place] [address]Dr. Bhavani Barragan PROTIMEon 02-06-2023 INR Coag (PPP) [Relative time] 1.12 {INR} Normal [facility] Comment on above: Performed By: #### P TT, PT ####[facility] Weilxajimq838[address] [place], [place] [address]Dr. Bhavani Barragan INR GUIDELINES SEE BELOW Normal [facility] Comment on above: Result Comment: WALKER RED INR: 2.0 - 3.0 CONDITIONS NOT LISTED BELOW 2.5 - 3.5 FOR PROSTHETIC HEART VALVE REPLACEMENT 2.5 - 3.5 RECURRENT THROMBOSIS Performed By: #### P TT, PT ####[facility] Cjrmtefvua98[address] [place], [place] [address]Dr. Bhavani Barragan PT Coag (PPP) [Time] 11.8 s Critically high 9.0-11.6 [facility] Comment on above: Performed By: #### P TT, PT ####[facility] Ndiiunnzsr52[address] [place], [place] [address]Dr. Bhavani Barragan PTTon 02-06-2023 aPTT Coag (Bld) [Time] 23.8 s Normal 22.3-36.2 [facility] Comment on above: Performed By: #### P TT, PT ####[facility] Unjtgoiqxn8804[address] [place], [place] [address]Dr. Bhaavni Barragan URINE MICROSCOPIC ONLYon BACTERIA LARGE Abnormal NONE SEEN The [facility] Comment on above: Performed By: #### U MICRO, ERUR ####[facility] Ivaqcqikvx7[address] [place], [place] [address]Dr. Bhavani Barragan Bacteria identified Cx Nom (U) INDICATED Normal [facility] Comment on above: Performed By: #### U MICRO, ERUR ####[facility] Epjcvfuxuy[address] [place], [place] [address]Dr. Bhavani Barragan CAST NONE SEEN Normal NONE SEEN [facility] Comment on above: Performed By: #### U MICRO, ERUR ####[facility] Upzgnnqzuz2220 [place] [address]Dr. Bhavani Barragan Crystals LM Nom (Urine sed) NONE SEEN Normal NONE SEEN [facility] Comment on above: Performed By: #### U MICRO, ERUR ####[facility] Licctfeltg8073 [place] [phone]. Bhavani Barragan Epithelial cells LM Ql (Urine sed) RARE Normal NONE SEEN /RARE [facility] Comment on above: Performed By: #### U MICRO, ERUR ####[facility] Pawqznrfbt3063 [place] [phone]. Bhavani Barragan MUCOUS NONE SEEN Normal NONE SEEN [facility] Comment on above: Performed By: #### U MICRO, ERUR ####[facility] Amgckisxcg6959 [place] [address]Dr. Bhavani Barragan RBC 0-2 Normal 0-2 [facility] Comment on above: Performed By: #### U MICRO, ERUR ####[facility] Nrdjtivteg3975 [place] [address]Dr. Bhavani Barragan WBC 10-20 Abnormal NONE SEEN [facility] Comment on above: Performed By: #### U MICRO, ERUR ####[facility] Kmsasbntja3253 [place] [address]Dr. Bhavani Barragan XR CHEST 1 Von 02-06-2023 XR CHEST 1 V Normal [facility] XR FEMUR RTon 02-06-2023 XR FEMUR RT Normal [facility] Orders Onlyon 01-22-2023 Orders Only [id number] Jennifer Tafoya 1940 F Date Provider [facility] Family History Problem Relation Age of Onset Diabetes Sister Diabetes Brother Diabetes Maternal Grandfather Family Status - Relation Status Age at Sister Brother Maternal Grandfather Normal [facility] CBC AUTO DIFFon 01-18-2023 BASO # 0.1 103/ul Normal 0.0-0.1 [facility] Comment on above: Performed By: #### C BC ####[facility] Avhhxkpfje3564 [place] [phone]. Bhavani Barragan Basophils/100 WBC (Bld) 0.7 % Normal 0.2-2.0 [facility] Comment on above: Performed By: #### C BC ####[facility] Trlmhplyoe2478 [place] [phone]. Bhavani Barragan EO # 0.0 103/ul Normal 0.0-0.7 [facility] Comment on above: Performed By: #### C BC ####[facility] Quvbuvuvfs6160 [place] [address]Dr. Bhavani Barragan Eosinophils/100 WBC (Bld) 0.2 % Critically low 0.9-7.0 [facility] Comment on above: Performed By: #### C BC ####[facility] Ywitglytia18[address] [place], [place] [address]Dr. Bhavani Barragan Erythrocyte distribution width (RBC) [Ratio] 16.4 % Critically high 11.0-15.0 [facility] Comment on above: Performed By: #### C BC ####[facility] Inwurfcsew15[address] [place], [place] [address]Dr. Bhavani Barragan Hematocrit (Bld) [Volume fraction] 41.5 % Normal 36.0-48.0 [facility] Comment on above: Performed By: #### C BC ####[facility] Ikxfzbjqsa[address] [place], [place] [address]Dr. Bhavani Barragan Hemoglobin (Bld) [Mass/Vol] 13.0 g/dL Normal 12.0-16.0 [facility] Comment on above: Performed By: #### C BC ####[facility] Zpmizocnrt1639 [place] [phone]. Bhavani Barragan IG # 0.24 10e3/ul Critically high 0.00-0.03 The [facility] Comment on above: Performed By: #### C BC ####[facility] Mzqzusttfl[address] [place], [place] [address]Dr. Bhavani Barragan IG % 1.3 % Critically high 0.0-0.5 [facility] Comment on above: Performed By: #### C BC ####[facility] Gtsaozwogd6252 [place], [place] [address]Oi. Bhavani Barragan LYMPH # 1.5 103/ul Normal 1.2-3.8 [facility] Comment on above: Performed By: #### C BC ####[facility] Gqsbsrvlkb5739 [place], [place] [address]Za. Bhavani Barragan Lymphocytes/100 WBC (Bld) 8.1 % Critically low 20.5-60.0 [facility] Comment on above: Performed By: #### C BC ####[facility] Hx[address]jcpvra[address] [place], [place] [address]Ol. Bhavani Laurel MANUAL DIFF REQ NO Normal [facility] Comment on above: Performed By: #### C BC ####[facility] Xowxnezous9833 [place], [place] [address]Gu. Bhavani Laurel MCH (RBC) [Entitic mass] 28.9 pg Normal 26.7-34.0 [facility] Comment on above: Performed By: #### C BC ####[facility] Nnroyzyvvz5238 [place] [phone]. Bhavani Barragan MCHC (RBC) [Mass/Vol] 31.3 g/dL Normal 29.9-35.2 [facility] Comment on above: Performed By: #### C BC ####[facility] Eklnxofqhf1848 [place], [place] [address]Gd. Bhavani Barragan MCV (RBC) [Entitic vol] 92.2 fL Normal 81.0-99.0 [facility] Comment on above: Performed By: #### C BC ####[facility] Clhfrzgwkj8676 [place] [phone]. Bhavani Barragan MONO # 0.2 103/ul Critically low 0.3-0.8 [facility] Comment on above: Performed By: #### C BC ####[facility] Lxlxmbtrzc1595 [place], [place] [address]Ai. Bhavani Laurel Monocytes/100 WBC (Bld) 1.3 % Critically low 1.7-12.0 [facility] Comment on above: Performed By: #### C BC ####[facility] Tzobgyanlw6504 [place] [phone]. Bhavani Barragan NEUT # 16.0 103/ul Critically high 1.4-6.5 [facility] Comment on above: Performed By: #### C BC ####[facility] Ykmqepnxvl8458 [place] [phone]. Bhavani Barragan Neutrophils/100 WBC (Bld) 88.4 % Critically high 43.0-75.0 [facility] Comment on above: Performed By: #### C BC ####[facility] Xsxvejokhm1794 [place] [phone]. Bhavani Barragan Platelet mean volume (Bld) [Entitic vol] 12.1 fL Normal 9.5-13.5 [facility] Comment on above: Performed By: #### C BC ####[facility] Exlwydowit6871 [place] [phone]. Bhavani Barragan PLT 170 103/ul Normal 150-450 [facility] Comment on above: Performed By: #### C BC ####[facility] Qkpxlfvkch0727 [place] [phone]. Bhavani Barragan RBC 4.50 106/ul Normal 4.20-5.40 [facility] Comment on above: Performed By: #### C BC ####[facility] Zvzmwlisqy1138 [place] [phone]. Bhavani Barragan WBC 18.1 103/ul Critically high 4.0-11.0 [facility] Comment on above: Performed By: #### C BC ####[facility] Gqtgggzgec7654 [place] [phone]. Bhavani Barragan ECHOCARDIO M/2D COMPLETEon 0 01-18-2023 ECHOCARDIO M/2D COMPLETE Normal [facility] Office Visiton 12-25-2022 Follow-up visit [id number] Jennifer Tafoya 1940 F Date Provider Department Center 12/25/2022 TRACI LICEA [facility] Family History Problem Relation Age of Onset Diabetes Sister Diabetes Brother Diabetes Maternal Grandfather Family Status - Relation Status Age at Sister Brother Maternal Grandfather Level of Service:64186 [place] OFFICE/OUTPATIENT ESTABLISHED MOD MDM 30-39 MIN Reason for Visit and Comments: Atrial Fibrillation [80] Normal [facility] Endoscopy Reporton Endoscopy Report MR#: [id number] [facility] Pt. Name: María Elena Tafoya Surgery Date: [...] Barillas M.D. Date Trans: 06/27/2022 03:26 A/erik [id number] cc: Bennie Albright M.D. [address], [place] [address] [facility] ABDOMEN 1 [facility] 06-26-2022 ABDOMEN 1 [facility] Department of Radiology [address] [place] [id number] ======== Patient Name: MARÍA ELENA TAFOYA [...] identified. Electronically signed: Roge Bah. Transcribed by: [email or web address], User Resident: Electronically Signed by: ROGE BAH @ 06/26/2022 11:52 AM Normal The [facility] Comment on above: Order Comment: Check Stent Position, NO ERCPon 06-26-2022 ERCP [facility] Department of Radiology [address] [place] [id number] ======== Patient Name: MARÍA ELENA TAFOYA : 1940 Sex: F Age: Race: White Pt. Location: [facility] Patient Status: Ordered Date: 06/26/2022 5:00:00 AM [...] details. Electronically signed: FARSHAD SILVA. Transcribed by: [email or web address], User Resident: Electronically Signed by: FARSHAD SILVA @ 06/27/2022 09:15 AM Normal [facility] Comment on above: Order Comment: , [place] ointment Date: 06/26/2022 , Appointment Time: 1015 , Appointment Date: 06/26/2022 , Appointment Time: 1015 , , , Ordering Provider - ELIU BRAUN MD , POC GLUCOSE LABon 06-26-2022 Glucose [Mass/Vol] 121 mg/dL High 70-100 [facility] Comment on above: Performed By: #### 8 5499 #### [facility] [address] [facility] [place] [address], [facility] Glucose [Mass/Vol] 116 mg/dL High 70-100 The [facility] Comment on above: Performed By: #### 8 5499 #### [facility] [address] POC SARS COV2 IDon 2 SARS-CoV-2 (COVID-19) RNA MATTHEW+probe Ql (Unsp spec) Negative Normal NEGATIVE The [facility] Comment on above: Result Comment: ID N [...] Performed By: #### 8 5499 #### [facility] [address] [place] [address], [facility] XR MODIFIED BARIUM SWALLOWon 05-08-2022 XR MODIFIED BARIUM SWALLOW Normal [facility] POC GLUCOSE LABon 04-16-2022 Glucose [Mass/Vol] 103 mg/dL High 70-100 [facility] Comment on above: Performed By: #### 8 5499 ####[facility] [address] POC GLUCOSE LABon 04-15-2022 Glucose [Mass/Vol] 112 mg/dL High 70-100 [facility] Comment on above: Performed By: #### 8 5499 #### [facility] [address] [place] [address], [facility] Glucose [Mass/Vol] 131 mg/dL High 70-100 The [facility] Comment on above: Performed By: #### 8 5499 #### [facility] [address] [place] [address], [place] Glucose [Mass/Vol] 122 mg/dL High 70-100 The [facility] Comment on above: Performed By: #### 5 0608 #### [facility] [address] [place] [address], [place] Glucose [Mass/Vol] 118 mg/dL High 70-100 The [facility] Comment on above: Performed By: #### 8 5499 #### [facility] [address] [place] [address], [place] BASIC METABOLIC PANELon 05-2 Calcium [Mass/Vol] 8.1 mg/dL Low 8.6-10.3 The [facility] Comment on above: Order Comment: No: D o not add to previous draw Performed By: #### 2 2706 #### [facility] [address] [place] [address], [place] Chloride [Moles/Vol] 104 mmol/L Normal 98-107 The [facility] Comment on above: Order Comment: No: D o not add to previous draw Performed By: #### 2 2706 #### [facility] [address] [place] [address], [place] CO2 [Moles/Vol] 27 mmol/L Normal 21-31 The [facility] Comment on above: Order Comment: No: D o not add to previous draw Performed By: #### 2 2706 #### [facility] [address] [place] [address], [place] Creatinine [Mass/Vol] 1.34 mg/dL High 0.60-1.20 The [facility] Comment on above: Order Comment: No: D o not add to previous draw Performed By: #### 2 1096 #### [facility] [address] [place] [address], [place] eGFR- 46 ml/min/1.73sq m Abnormal >60 The [facility] Comment on above: Order Comment: No: D o not add to previous draw Result Comment: Calc ulation may not be valid for patients over 70 years Performed By: #### 2 2706 #### [facility] [address] [place] [address], [facility] eGFR- non- 38 ml/min/1.73sq m Abnormal >60 The [facility] Comment on above: Order Comment: No: D o not add to previous draw Result Comment: Calc ulation may not be valid for patients over 70 years Performed By: #### 2 2706 #### [facility] [address] [place] [address], [place] Glucose [Mass/Vol] 106 mg/dL High 70-100 The [facility] Comment on above: Order Comment: No: D o not add to previous draw Performed By: #### 2 2706 #### [facility] [address] [place] [address], [place] Potassium [Moles/Vol] 4.9 mmol/L Normal 3.5-5.1 The [facility] Comment on above: Order Comment: No: D o not add to previous draw Performed By: #### 2 2706 #### [facility] [address] [place] [address], [place] Sodium [Moles/Vol] 135 mmol/L Low 136-145 The [facility] Comment on above: Order Comment: No: D o not add to previous draw Performed By: #### 2 2706 #### [facility] [address] [place] [address], [place] Urea nitrogen [Mass/Vol] 22 mg/dL Normal 7-25 The [facility] Comment on above: Order Comment: No: D o not add to previous draw Performed By: #### 2 2706 #### [facility] [address] [place] [address], [place] CBC COMPLETE BLOOD COUNTon 0 5-28-2022 Erythrocyte distribution width (RBC) [Ratio] 20.9 % High 11.5-15.0 The [facility] Comment on above: Order Comment: No: D o not add to previous draw Performed By: #### 8 5499 #### [facility] [address] [place] [address], [facility] Hematocrit (Bld) [Volume fraction] 27.5 % Low 36.0-45.0 The [facility] Comment on above: Order Comment: No: D o not add to previous draw Performed By: #### 8 5499 #### [facility] [address] [place] [address], [facility] Hemoglobin (Bld) [Mass/Vol] 8.5 g/dL Low 12.0-15.0 The [facility] Comment on above: Order Comment: No: D o not add to previous draw Performed By: #### 8 5499 #### [facility] [address] [place] [address], [place] IMM PLATELET FRAC 10.2 % High 0.8-6.[address] [facility] Comment on above: Order Comment: No: D o not add to previous draw Performed By: #### 8 5499 #### [facility] [address] [place] [address], [place] MCH (RBC) [Entitic mass] 31.1 pg Normal 27.0-33.0 The [facility] Comment on above: Order Comment: No: D o not add to previous draw Performed By: #### 8 5499 #### [facility] [address] [place] [address], [place] MCHC (RBC) [Mass/Vol] 30.9 g/dL Low 32.0-35.0 The [facility] Comment on above: Order Comment: No: D o not add to previous draw Performed By: #### 8 5499 #### [facility] [address] [place] [address], [place] MCV (RBC) [Entitic vol] 100.7 fL High 82.0-98.0 The [facility] Comment on above: Order Comment: No: D o not add to previous draw Performed By: #### 8 5499 #### [facility] [address] [place] [id number], [facility] Nucleated RBC/100 WBC (Bld) [Ratio] 0 % Normal 0-0 The [facility] Comment on above: Order Comment: No: D o not add to previous draw Performed By: #### 8 5499 #### [facility] [address] [place] [address], [facility] PLAT ESTIMATE Normal Normal The [facility] Comment on above: Order Comment: No: D o not add to previous draw Result Comment: EDTA smear shows platelet clumping, see platelet estimate Performed By: #### 8 5499 #### [facility] [address] [place] [id number], [facility] RBC (Bld) [#/Vol] 2.73 10*6/uL Low 3.80-5.00 The [facility] Comment on above: Order Comment: No: D o not add to previous draw Performed By: #### 8 5499 #### [facility] [address] [place] [address], [place] WBC (Bld) [#/Vol] 19.62 10*3/uL High 4.00-10.60 The [facility] Comment on above: Order Comment: No: D o not add to previous draw Performed By: #### 8 5499 #### [facility] [address] [place] [id number], [facility] MAGNESIUM BLOODon 04-14-2022 Magnesium [Mass/Vol] 1.9 mg/dL Normal 1.9-2.7 The [facility] Comment on above: Order Comment: No: D o not add to previous draw Performed By: #### 2 2706 #### [facility] [address] [place] [address], [place] POC GLUCOSE LABon 04-14-2022 Glucose [Mass/Vol] 117 mg/dL High 70-100 The [facility] Comment on above: Performed By: #### 3 0313 #### [facility] [address] [place] [address], [place] Glucose [Mass/Vol] 119 mg/dL High 70-100 The [facility] Comment on above: Performed By: #### 8 5499 #### [facility] [address] [place] [address], [place] Glucose [Mass/Vol] 113 mg/dL High 70-100 The [facility] Comment on above: Performed By: #### 8 5499 #### [facility] [address] [place] [address], [place] Glucose [Mass/Vol] 112 mg/dL High 70-100 The [facility] Comment on above: Performed By: #### 8 5499 #### [facility] [address] [place] [address], [place] BASIC METABOLIC PANELon 03-19 Calcium [Mass/Vol] 8.4 mg/dL Low 8.6-10.3 The [facility] Comment on above: Order Comment: Bleed , altereed mental status Performed By: #### 4 1000, 29598, 80227 ####[facility] [place] [address], [place] Chloride [Moles/Vol] 105 mmol/L Normal 98-107 The [facility] Comment on above: Order Comment: Bleed , altereed mental status Performed By: #### 4 1000, 38437, 88927 ####[facility] [place] [address], [place] CO2 [Moles/Vol] 24 mmol/L Normal 21-31 The [facility] Comment on above: Order Comment: Bleed , altereed mental status Performed By: #### 4 1000, , 00428 ####[facility] [place] [address], [facility] Creatinine [Mass/Vol] 1.31 mg/dL High 0.60-1.20 [facility] Comment on above: Order Comment: Bleed , altereed mental status Performed By: #### 4 1000, , 51063 ####[facility] [place] [address], [facility] eGFR- 47 ml/min/1.73sq m Abnormal >60 The [facility] Comment on above: Order Comment: Bleed , altereed mental status Result Comment: Calc ulation may not be valid for patients over 70 years Performed By: #### 4 1000, , 62061 ####[facility] [place] [address], [facility] eGFR- non- 39 ml/min/1.73sq m Abnormal >60 The [facility] Comment on above: Order Comment: Bleed , altereed mental status Result Comment: Calc ulation may not be valid for patients over 70 years Performed By: #### 4 1000, , 02476 ####[facility] [place] [address], [place] Glucose [Mass/Vol] 85 mg/dL Normal 70-100 [facility] Comment on above: Order Comment: Bleed , altereed mental status Performed By: #### 4 1000, , 35664 ####[facility] [place] [address], [place] Potassium [Moles/Vol] 5.2 mmol/L High 3.5-5.1 The [facility] Comment on above: Order Comment: Bleed , altereed mental status Performed By: #### 4 1000, , 98511 ####[facility] [place] [address], [place] Sodium [Moles/Vol] 137 mmol/L Normal 136-145 The [facility] Comment on above: Order Comment: Bleed , altereed mental status Performed By: #### 4 1000, 65500, 46127 ####[facility] [place] [address], [facility] Urea nitrogen [Mass/Vol] 21 mg/dL Normal 7-25 The [facility] Comment on above: Order Comment: Bleed , altereed mental status Performed By: #### 4 1000, 72425, 68372 ####[facility] [id number], [facility] CBC COMPLETE BLOOD COUNT04-13-2022 Erythrocyte distribution width (RBC) [Ratio] 20.4 % High 11.5-15.0 The [facility] Comment on above: Order Comment: No: D o not add to previous draw Performed By: #### 8 2999 #### [facility] [address] [place] [address], [facility] Hematocrit (Bld) [Volume fraction] 29.2 % Low 36.0-45.0 The [facility] Comment on above: Order Comment: No: D o not add to previous draw Performed By: #### 8 1039 #### [facility] [address] [place] [address], [place] Hemoglobin (Bld) [Mass/Vol] 9.0 g/dL Low 12.0-15.0 The [facility] Comment on above: Order Comment: No: D o not add to previous draw Performed By: #### 8 6829 #### [facility] [address] [place] [address], [place] MCH (RBC) [Entitic mass] 31.0 pg Normal 27.0-33.0 The [facility] Comment on above: Order Comment: No: D o not add to previous draw Performed By: #### 8 3351 #### [facility] [address] [place] [address], [facility] MCHC (RBC) [Mass/Vol] 30.8 g/dL Low 32.0-35.0 The [facility] Comment on above: Order Comment: No: D o not add to previous draw Performed By: #### 8 5499 #### [facility] [address] [place] [id number], [facility] MCV (RBC) [Entitic vol] 100.7 fL High 82.0-98.0 The [facility] Comment on above: Order Comment: No: D o not add to previous draw Performed By: #### 8 5499 #### [facility] [address] [facility] [place] [address], [facility] Nucleated RBC/100 WBC (Bld) [Ratio] 0 % Normal 0-0 The [facility] Comment on above: Order Comment: No: D o not add to previous draw Performed By: #### 8 5499 #### [facility] [address] [place] [address], [facility] PLAT CNT 148 10*3/uL Low 150-400 The [facility] Comment on above: Order Comment: No: D o not add to previous draw Performed By: #### 8 5499 #### [facility] [address] [place] [address], [facility] RBC (Bld) [#/Vol] 2.90 10*6/uL Low 3.80-5.00 The [facility] Comment on above: Order Comment: No: D o not add to previous draw Performed By: #### 8 5499 #### [facility] [address] [place] [address], [facility] WBC (Bld) [#/Vol] 22.15 10*3/uL High 4.00-10.60 The [facility] Comment on above: Order Comment: No: D o not add to previous draw Performed By: #### 8 5499 #### [facility] [address] [place] [address], [facility] MAGNESIUM BLOODon 04-13-2022 Magnesium [Mass/Vol] 1.7 mg/dL Low 1.9-2.7 The [facility] Comment on above: Order Comment: Bleed , altereed mental status Performed By: #### 4 1000, 07820, 68379 ####[facility] [place] [address], [place] PHOSPHORUS BLOODon Phosphate [Mass/Vol] 4.7 mg/dL Normal 2.5-5.0 The [facility] Comment on above: Order Comment: Bleed , altereed mental status Performed By: #### 4 1000, 83118, 30341 ####[facility] [facility] [place] [address], [place] POC GLUCOSE LABon 04-13-2022 Glucose [Mass/Vol] 119 mg/dL High 70-100 The [facility] Comment on above: Performed By: #### 8 5499 #### [facility] [address] [place] [address], [place] Glucose [Mass/Vol] 116 mg/dL High 70-100 The [facility] Comment on above: Performed By: #### 8 5499 #### [facility] [address] [place] [address], [place] Glucose [Mass/Vol] 129 mg/dL High 70-100 [facility] Comment on above: Performed By: #### 8 5499 #### [facility] [address] [place] [address], [place] Glucose [Mass/Vol] 109 mg/dL High 70-100 [facility] Comment on above: Performed By: #### 8 5499 ####[facility] [place] [address], [place] POTASSIUM BLOODon 04-13-2022 Potassium [Moles/Vol] 4.7 mmol/L Normal 3.5-5.1 The [facility] Comment on above: Order Comment: No: D o not add to previous draw Performed By: #### 2 2706 #### [facility] [address] [place] [address], [facility] BASIC METABOLIC PANELon 05-2 Calcium [Mass/Vol] 8.5 mg/dL Low 8.6-10.3 [facility] Comment on above: Order Comment: Bleed , altereed mental status Performed By: #### 1 0070, , 62218 ####[facility] [place] [address], [facility] Chloride [Moles/Vol] 106 mmol/L Normal 98-107 The [facility] Comment on above: Order Comment: Bleed , altereed mental status Performed By: #### 1 0, , 06710 ####[facility] [place] [address], [facility] CO2 [Moles/Vol] 24 mmol/L Normal 21-31 The [facility] Comment on above: Order Comment: Bleed , altereed mental status Performed By: #### 1 0, 05741, 09068 ####[facility] [place] [address], [facility] Creatinine [Mass/Vol] 1.34 mg/dL High 0.60-1.20 The [facility] Comment on above: Order Comment: Bleed , altereed mental status Performed By: #### 1 0, 47640, 35176 ####[facility] [place] [address], [facility] eGFR- 46 ml/min/1.73sq m Abnormal >60 The [facility] Comment on above: Order Comment: Bleed , altereed mental status Result Comment: Calc ulation may not be valid for patients over 70 years Performed By: #### 1 0, 17746, 00705 ####[facility] [place] [address], [facility] eGFR- non- 38 ml/min/1.73sq m Abnormal >60 [facility] Comment on above: Order Comment: Bleed , altereed mental status Result Comment: Calc ulation may not be valid for patients over 70 years Performed By: #### 1 0070, 55082, 47107 ####[facility] [id number], [facility] Glucose [Mass/Vol] 83 mg/dL Normal 70-100 The [facility] Comment on above: Order Comment: Bleed , altereed mental status Performed By: #### 1 0070, 03365, 85398 ####[facility] [facility] [place] [address], [facility] Potassium [Moles/Vol] 4.5 mmol/L Normal 3.5-5.1 The [facility] Comment on above: Order Comment: Bleed , altereed mental status Performed By: #### 1 0, 24242, 71806 ####[facility] [place] [address], [facility] Sodium [Moles/Vol] 137 mmol/L Normal 136-145 [facility] Comment on above: Order Comment: Bleed , altereed mental status Performed By: #### 1 0, 76627, 72363 ####[facility] [facility] [place] [address], [facility] Urea nitrogen [Mass/Vol] 25 mg/dL Normal 7-25 The [facility] Comment on above: Order Comment: Bleed , altereed mental status Performed By: #### 1 0070, 85010, 48331 ####[facility] [facility] [place] [address], [facility] CBC COMPLETE BLOOD COUNTon 0 - Erythrocyte distribution width (RBC) [Ratio] 19.9 % High 11.5-15.0 The [facility] Comment on above: Order Comment: No: D o not add to previous draw Performed By: #### 8 5499 #### [facility] [address] [place] [address], [facility] Hematocrit (Bld) [Volume fraction] 28.9 % Low 36.0-45.0 The [facility] Comment on above: Order Comment: No: D o not add to previous draw Performed By: #### 8 5499 #### [facility] [address] [place] [address], [facility] Hemoglobin (Bld) [Mass/Vol] 8.7 g/dL Low 12.0-15.0 The [facility] Comment on above: Order Comment: No: D o not add to previous draw Performed By: #### 8 5499 #### [facility] [address] MCH (RBC) [Entitic mass] 30.1 pg Normal 27.0-33.0 The [facility] Comment on above: Order Comment: No: D o not add to previous draw Performed By: #### 8 5499 #### [facility] [address] [facility] [place] [address], [facility] MCHC (RBC) [Mass/Vol] 30.1 g/dL Low 32.0-35.0 The [facility] Comment on above: Order Comment: No: D o not add to previous draw Performed By: #### 8 5499 #### [facility] [address] [facility] [place] [address], [facility] MCV (RBC) [Entitic vol] 100.0 fL High 82.0-98.0 The [facility] Comment on above: Order Comment: No: D o not add to previous draw Performed By: #### 8 5499 #### [facility] [address] [place] [address], [facility] Nucleated RBC/100 WBC (Bld) [Ratio] 0 % Normal 0-0 The [facility] Comment on above: Order Comment: No: D o not add to previous draw Performed By: #### 8 5499 #### [facility] [address] [place] [address], [facility] PLAT CNT 186 10*3/uL Normal 150-400 The [facility] Comment on above: Order Comment: No: D o not add to previous draw Performed By: #### 8 5499 #### [facility] [address] [place] [address], [facility] RBC (Bld) [#/Vol] 2.89 10*6/uL Low 3.80-5.00 [facility] Comment on above: Order Comment: No: D o not add to previous draw Performed By: #### 8 5499 #### [facility] [address] [place] [address], [facility] WBC (Bld) [#/Vol] 21.99 10*3/uL High 4.00-10.60 [facility] Comment on above: Order Comment: No: D o not add to previous draw Performed By: #### 8 5499 #### [facility] [address] [place] [id number], [facility] LIVER BATTERYon 04-12-2022 Albumin [Mass/Vol] 3.0 g/dL Low 3.5-5.7 [facility] Comment on above: Order Comment: Bleed , altereed mental status Performed By: #### 1 0, 51205, 64245 ####[facility] [place] [address], [facility] ALKALINE PHOSPH 87 IU/L Normal 34-104 [facility] Comment on above: Order Comment: Bleed , altereed mental status Performed By: #### 1 0, 59205, 78643 ####[facility] [facility] [id number], [facility] ALT [Catalytic activity/Vol] 7 U/L Normal 7-52 The [facility] Comment on above: Order Comment: Bleed , altereed mental status Performed By: #### 1 0070, [id number], [id number] ####[facility] AST [Catalytic activity/Vol] 11 U/L Low 13-39 The [facility] Comment on above: Order Comment: Bleed , altereed mental status Performed By: #### 1 0070, 16061, 82945 ####[facility] [place] [address], [facility] Bilirubin [Mass/Vol] 0.8 mg/dL Normal 0.3-1.0 The [facility] Comment on above: Order Comment: Bleed , altereed mental status Performed By: #### 1 0070, 25310, 92954 ####[facility] Bilirubin.direct [Mass/Vol] 0.2 mg/dL Normal 0.0-0.2 The [facility] Comment on above: Order Comment: Bleed , altereed mental status Performed By: #### 1 0, 64904, 51211 ####[facility] [place] [address], [facility] Protein [Mass/Vol] 6.0 g/dL Normal 6.0-8.3 The [facility] Comment on above: Order Comment: Bleed , altereed mental status Performed By: #### 1 0, 21137, 77453 ####[facility] [place] [address], [facility] MAGNESIUM BLOODon 04-12-2022 Magnesium [Mass/Vol] 1.9 mg/dL Normal 1.9-2.7 The [facility] Comment on above: Order Comment: Bleed , altereed mental status Performed By: #### 1 0070, 17386, 20241 ####[facility] [place] [address], [facility] Operative Reporton Operative Report MR#: [id number] # [facility] Pt. Name: María Elena Tafoya Room #: CCCI Discharge Date: Birthdate: 1940 OPERATIVE REPORT DATE OF SURGERY: 04/12/2022 SURGEON: Sharla Lizama MD Operative report: Laparoscopic cholecystectomy Location: [facility] main or Preoperative diagnosis: Gallstone pancreatitis Postoperative diagnosis: Gallstone pancreatitis Operation performed: Laparoscopic cholecystectomy Surgeon: Sharla Lizama MD Us Administrative Law Judge: Dillon Thomas MD (resident pgy5) Estimated blood [...] Lizama MD Date Trans: 04/12/2022 05:18 P/ [id number]_JN:[id number] cc: Bennie Albright M.D. [address] [facility] [address] Normal The [facility] Operative Report MR#: [id number] I [facility] Pt. Name: María Elena Tafoya Room #: [id number] Discharge Date: Birthdate: 1940 OPERATIVE REPORT DATE OF SURGERY: 04/12/2022 SURGEON: Sharla Lizama MD Operative report: Laparoscopic cholecystectomy Location: [facility] main or Preoperative diagnosis: Gallstone pancreatitis Postoperative diagnosis: Gallstone pancreatitis Operation performed: Laparoscopic cholecystectomy Surgeon: Sharla Lizama MD Us Administrative Law Judge: Dillon Thomas MD (resident pgy5) Estimated blood [...] Lizama MD Date Trans: 04/12/2022 05:18 P/ [id number] cc: Bennie Albright M.D. [address] [facility] [address] Normal The [facility] POC GLUCOSE LABon 04-12-2022 Glucose [Mass/Vol] 122 mg/dL High 70-100 The [facility] Comment on above: Performed By: #### 8 5499 #### [facility] [address] [place] [address], [facility] Glucose [Mass/Vol] 167 mg/dL High 70-100 The [facility] Comment on above: Performed By: #### 8 5499 ####[facility] [place] [address], [facility] Glucose [Mass/Vol] 105 mg/dL High 70-100 The [facility] Comment on above: Performed By: #### 3 0313 #### [facility] [address] [facility] [place] [address], [facility] Glucose [Mass/Vol] 111 mg/dL High 70-100 The [facility] Comment on above: Performed By: #### 8 5499 ####[facility] [facility] [place] [address], [facility] Glucose [Mass/Vol] 109 mg/dL High 70-100 The [facility] Comment on above: Performed By: #### 3 0313 #### [facility] [address] POC SARS COV2 IDon 2 SARS-CoV-2 (COVID-19) RNA MATTHEW+probe Ql (Unsp spec) Negative Normal NEGATIVE The [facility] Comment on above: Result Comment: ID N [...] Performed By: #### 8 5499 #### [facility] [address] [place] [address], [facility] BASIC METABOLIC PANELon 05-2 Calcium [Mass/Vol] 8.3 mg/dL Low 8.6-10.3 [facility] Comment on above: Order Comment: No: D o not add to previous draw Performed By: #### 8 5499 #### [facility] [address] [place] [address], [place] Chloride [Moles/Vol] 106 mmol/L Normal 98-107 The [facility] Comment on above: Order Comment: No: D o not add to previous draw Performed By: #### 8 5499 #### [facility] [address] [place] [address], [place] CO2 [Moles/Vol] 23 mmol/L Normal 21-31 [facility] Comment on above: Order Comment: No: D o not add to previous draw Performed By: #### 8 5499 #### [facility] [address] [place] [address], [facility] Creatinine [Mass/Vol] 1.21 mg/dL High 0.60-1.20 The [facility] Comment on above: Order Comment: No: D o not add to previous draw Performed By: #### 8 5499 #### [facility] [address] [place] [address], [facility] eGFR- 51 ml/min/1.73sq m Abnormal >60 The [facility] Comment on above: Order Comment: No: D o not add to previous draw Result Comment: Calc ulation may not be valid for patients over 70 years Performed By: #### 8 5499 #### [facility] [address] [place] [id number], [facility] eGFR- non- 42 ml/min/1.73sq m Abnormal >60 The [facility] Comment on above: Order Comment: No: D o not add to previous draw Result Comment: Calc ulation may not be valid for patients over 70 years Performed By: #### 8 5499 #### [facility] [address] [place] [address], [place] Glucose [Mass/Vol] 91 mg/dL Normal 70-100 The [facility] Comment on above: Order Comment: No: D o not add to previous draw Performed By: #### 8 5499 #### [facility] [address] [place] [address], [facility] Potassium [Moles/Vol] 4.5 mmol/L Normal 3.5-5.1 The [facility] Comment on above: Order Comment: No: D o not add to previous draw Performed By: #### 8 5499 #### [facility] [address] [place] [address], [place] Sodium [Moles/Vol] 138 mmol/L Normal 136-145 The [facility] Comment on above: Order Comment: No: D o not add to previous draw Performed By: #### 8 5499 #### [facility] [address] [place] [address], [facility] Urea nitrogen [Mass/Vol] 22 mg/dL Normal 7-25 The [facility] Comment on above: Order Comment: No: D o not add to previous draw Performed By: #### 8 5499 #### [facility] [address] [place] [address], [facility] CBC COMPLETE BLOOD COUNTon 0 04-11-2022 Erythrocyte distribution width (RBC) [Ratio] 19.6 % High 11.5-15.0 The [facility] Comment on above: Order Comment: No: D o not add to previous draw Performed By: #### 5 0608 #### [facility] [address] [place] [address], [place] Hematocrit (Bld) [Volume fraction] 29.5 % Low 36.0-45.0 The [facility] Comment on above: Order Comment: No: D o not add to previous draw Performed By: #### 5 0608 #### [facility] [address] [place] [address], [facility] Hemoglobin (Bld) [Mass/Vol] 9.2 g/dL Low 12.0-15.0 The [facility] Comment on above: Order Comment: No: D o not add to previous draw Performed By: #### 5 0608 #### [facility] [address] [place] [address], [facility] MCH (RBC) [Entitic mass] 31.0 pg Normal 27.0-33.0 The [facility] Comment on above: Order Comment: No: D o not add to previous draw Performed By: #### 5 0608 #### [facility] [address] [place] [address], [facility] MCHC (RBC) [Mass/Vol] 31.2 g/dL Low 32.0-35.0 The [facility] Comment on above: Order Comment: No: D o not add to previous draw Performed By: #### 5 0608 #### [facility] [address] [facility] [place] [address], [facility] MCV (RBC) [Entitic vol] 99.3 fL High 82.0-98.0 The [facility] Comment on above: Order Comment: No: D o not add to previous draw Performed By: #### 5 0608 #### [facility] [address] [facility]. [address] Nucleated RBC/100 WBC (Bld) [Ratio] 0 % Normal 0-0 The [facility] Comment on above: Order Comment: No: D o not add to previous draw Performed By: #### 5 0608 #### [facility] [address] [facility] [place] [address], [facility] PLAT CNT 277 10*3/uL Normal 150-400 The [facility] Comment on above: Order Comment: No: D o not add to previous draw Performed By: #### 5 0608 #### [facility] [address] [place] [address], [facility] RBC (Bld) [#/Vol] 2.97 10*6/uL Low 3.80-5.00 [facility] Comment on above: Order Comment: No: D o not add to previous draw Performed By: #### 5 0608 #### [facility] [address] [place] [address], [facility] WBC (Bld) [#/Vol] 20.81 10*3/uL High 4.00-10.60 The [facility] Comment on above: Order Comment: No: D o not add to previous draw Performed By: #### 5 0608 #### [facility] [address] [place] [id number], [facility] LIVER BATTERYon 04-11-2022 Albumin [Mass/Vol] 3.1 g/dL Low 3.5-5.7 [facility] Comment on above: Order Comment: No: D o not add to previous draw Performed By: #### 8 [id number] #### [facility] [address] [place] [id number], [facility] ALKALINE PHOSPH 92 IU/L Normal 34-104 The [facility] Comment on above: Order Comment: No: D o not add to previous draw Performed By: #### 8 [id number] #### [facility] [address] [place] [address], [facility] ALT [Catalytic activity/Vol] 7 U/L Normal 7-52 The [facility] Comment on above: Order Comment: No: D o not add to previous draw Performed By: #### 8 5499 #### [facility] [address] [place] [id number], [facility] AST [Catalytic activity/Vol] 9 U/L Low 13-39 The [facility] Comment on above: Order Comment: No: D o not add to previous draw Performed By: #### 8 5499 #### [facility] [address] [place] [address], [place] Bilirubin [Mass/Vol] 0.8 mg/dL Normal 0.3-1.0 The [facility] Comment on above: Order Comment: No: D o not add to previous draw Performed By: #### 8 [id number] #### [facility] [address] [place] [address], [place] Bilirubin.direct [Mass/Vol] 0.3 mg/dL High 0.0-0.2 The [facility] Comment on above: Order Comment: No: D o not add to previous draw Performed By: #### 8 [id number] #### [facility] [address] [place] [address], [place] Protein [Mass/Vol] 5.7 g/dL Low 6.0-8.3 [facility] Comment on above: Order Comment: No: D o not add to previous draw Performed By: #### 8 5499 #### [facility] [address] [place] [address], [place] MAGNESIUM BLOODon 04-11-2022 Magnesium [Mass/Vol] 1.7 mg/dL Low 1.9-2.7 The [facility] Comment on above: Order Comment: No: D o not add to previous draw Performed By: #### 8 [id number] #### [facility] [address] [place] [address], [place] POC GLUCOSE LABon 04-11-2022 Glucose [Mass/Vol] 143 mg/dL High 70-100 [facility] Comment on above: Performed By: #### 8 [id number] #### [facility] [address] [place] [address], [place] Glucose [Mass/Vol] 142 mg/dL High 70-100 [facility] Comment on above: Performed By: #### 8 5499 ####[facility] [place] [address], [facility] Glucose [Mass/Vol] 125 mg/dL High 70-100 The [facility] Comment on above: Performed By: #### 8 5499 #### [facility] [address] [place] [address], [place] Glucose [Mass/Vol] 113 mg/dL High 70-100 The [facility] Comment on above: Performed By: #### 3 0313 #### [facility] [address] [place] [address], [place] URINE SMITH STAIN/EOSon EOSINOPHIL SMEAR NONE SEEN Normal NSN The [facility] Comment on above: Order Comment: No: D o not add to previous draw [place] Normal The [facility] Comment on above: Order Comment: No: D o not add to previous draw Result Comment: Test Performed by [employer] [address] [place] [id number] - Released 04/11/2022 22:02 BASIC METABOLIC PANELon 05-2 Calcium [Mass/Vol] 8.3 mg/dL Low 8.6-10.3 The [facility] Comment on above: Order Comment: No: D o not add to previous draw Performed By: #### 8 [id number] #### [facility] [address] [place] [address], [place] Chloride [Moles/Vol] 107 mmol/L Normal 98-107 The [facility] Comment on above: Order Comment: No: D o not add to previous draw Performed By: #### 8 5499 #### [facility] [address] [place] [address], [place] CO2 [Moles/Vol] 23 mmol/L Normal 21-31 The [facility] Comment on above: Order Comment: No: D o not add to previous draw Performed By: #### 8 5499 #### [facility] [address] [place] [address], [place] Creatinine [Mass/Vol] 1.40 mg/dL High 0.60-1.20 The [facility] Comment on above: Order Comment: No: D o not add to previous draw Performed By: #### 8 5499 #### [facility] [address] [place] [address], [facility] eGFR- 44 ml/min/1.73sq m Abnormal >60 The [facility] Comment on above: Order Comment: No: D o not add to previous draw Result Comment: Calc ulation may not be valid for patients over 70 years Performed By: #### 8 5499 #### [facility] [address] [place] [address], [facility] eGFR- non- 36 ml/min/1.73sq m Abnormal >60 The [facility] Comment on above: Order Comment: No: D o not add to previous draw Result Comment: Calc ulation may not be valid for patients over 70 years Performed By: #### 8 5499 #### [facility] [address] [place] [address], [place] Glucose [Mass/Vol] 101 mg/dL High 70-100 The [facility] Comment on above: Order Comment: No: D o not add to previous draw Performed By: #### 8 5499 #### [facility] [address] [place] [address], [place] Potassium [Moles/Vol] 4.1 mmol/L Normal 3.5-5.1 The [facility] Comment on above: Order Comment: No: D o not add to previous draw Performed By: #### 8 [id number] #### [facility] [address] [place] [address], [place] Sodium [Moles/Vol] 138 mmol/L Normal 136-145 [facility] Comment on above: Order Comment: No: D o not add to previous draw Performed By: #### 8 5499 #### [facility] [address] [place] [address], [place] Urea nitrogen [Mass/Vol] 25 mg/dL Normal 7-25 The [facility] Comment on above: Order Comment: No: D o not add to previous draw Performed By: #### 8 5499 #### [facility] [address] [facility] [address] CBC COMPLETE BLOOD COUNTon 0 - Erythrocyte distribution width (RBC) [Ratio] 19.9 % High 11.5-15.0 The [facility] Comment on above: Order Comment: No: D o not add to previous draw Performed By: #### 5 0608 #### [facility] [address] Hematocrit (Bld) [Volume fraction] 29.1 % Low 36.0-45.0 The [facility] Comment on above: Order Comment: No: D o not add to previous draw Performed By: #### 5 0608 #### [facility] [address] [facility] [address] Hemoglobin (Bld) [Mass/Vol] 9.1 g/dL Low 12.0-15.0 The [facility] Comment on above: Order Comment: No: D o not add to previous draw Performed By: #### 5 0608 #### [facility] [address] [facility] [place] [address], [facility] MCH (RBC) [Entitic mass] 30.6 pg Normal 27.0-33.0 The [facility] Comment on above: Order Comment: No: D o not add to previous draw Performed By: #### 5 0608 #### [facility] [address] [facility] [place] [address], [facility] MCHC (RBC) [Mass/Vol] 31.3 g/dL Low 32.0-35.0 The [facility] Comment on above: Order Comment: No: D o not add to previous draw Performed By: #### 5 0608 #### [facility] [address] [place] [address], [facility] MCV (RBC) [Entitic vol] 98.0 fL Normal 82.0-98.0 The [facility] Comment on above: Order Comment: No: D o not add to previous draw Performed By: #### 5 0608 #### [facility] [address] [facility] [place] [address], [facility] Nucleated RBC/100 WBC (Bld) [Ratio] 0 % Normal 0-0 The [facility] Comment on above: Order Comment: No: D o not add to previous draw Performed By: #### 5 0608 #### [facility] [address] [place] [address], [facility] PLAT CNT 281 10*3/uL Normal 150-400 The [facility] Comment on above: Order Comment: No: D o not add to previous draw Performed By: #### 5 0608 #### [facility] [address] [place] [address], [facility] RBC (Bld) [#/Vol] 2.97 10*6/uL Low 3.80-5.00 [facility] Comment on above: Order Comment: No: D o not add to previous draw Performed By: #### 5 0608 #### [facility] [address] [facility] [place] [address], [facility] WBC (Bld) [#/Vol] 19.64 10*3/uL High 4.00-10.60 The [facility] Comment on above: Order Comment: No: D o not add to previous draw Performed By: #### 5 0608 #### [facility] [address] [facility] [place] [address], [facility] MAGNESIUM BLOODon 04-10-2022 Magnesium [Mass/Vol] 1.6 mg/dL Low 1.9-2.7 The [facility] Comment on above: Order Comment: No: D o not add to previous draw Performed By: #### 8 [id number] #### [facility] [address] [place] [address], [place] POC GLUCOSE LABon 04-10-2022 Glucose [Mass/Vol] 154 mg/dL High 70-100 The [facility] Comment on above: Performed By: #### 8 [id number] #### [facility] [address] [place] [address], [place] Glucose [Mass/Vol] 120 mg/dL High 70-100 [facility] Comment on above: Performed By: #### 3 0313 #### [facility] [address] [place] [address], [place] Glucose [Mass/Vol] 131 mg/dL High 70-100 [facility] Comment on above: Performed By: #### 8 [id number] ####[facility] [place] [address], [place] Glucose [Mass/Vol] 114 mg/dL High 70-100 [facility] Comment on above: Performed By: #### 8 [id number] #### [facility] [address] [place] [address], [place] BASIC METABOLIC PANELon 05 Calcium [Mass/Vol] 8.7 mg/dL Normal 8.6-10.3 [facility] Comment on above: Order Comment: No: D o not add to previous draw Performed By: #### 8 [id number] #### [facility] [address] [place] [address], [place] Chloride [Moles/Vol] 104 mmol/L Normal 98-107 The [facility] Comment on above: Order Comment: No: D o not add to previous draw Performed By: #### 8 [id number] #### [facility] [address] [place] [address], [place] CO2 [Moles/Vol] 24 mmol/L Normal 21-31 The [facility] Comment on above: Order Comment: No: D o not add to previous draw Performed By: #### 8 [id number] #### [facility] [address] [place] [address], [place] Creatinine [Mass/Vol] 1.29 mg/dL High 0.60-1.20 The [facility] Comment on above: Order Comment: No: D o not add to previous draw Performed By: #### 8 [id number] #### [facility] [address] [place] [address], [facility] eGFR- 48 ml/min/1.73sq m Abnormal >60 The [facility] Comment on above: Order Comment: No: D o not add to previous draw Result Comment: Calc ulation may not be valid for patients over 70 years Performed By: #### 8 [id number] #### [facility] [address] [place] [address], [facility] eGFR- non- 39 ml/min/1.73sq m Abnormal >60 The [facility] Comment on above: Order Comment: No: D o not add to previous draw Result Comment: Calc ulation may not be valid for patients over 70 years Performed By: #### 8 [id number] #### [facility] [address] [place] [address], [place] Glucose [Mass/Vol] 90 mg/dL Normal 70-100 The [facility] Comment on above: Order Comment: No: D o not add to previous draw Performed By: #### 8 [id number] #### [facility] [address] [place] [address], [place] Potassium [Moles/Vol] 4.3 mmol/L Normal 3.5-5.1 The [facility] Comment on above: Order Comment: No: D o not add to previous draw Performed By: #### 8 [id number] #### [facility] [address] [place] [address], [place] Sodium [Moles/Vol] 137 mmol/L Normal 136-145 [facility] Comment on above: Order Comment: No: D o not add to previous draw Performed By: #### 8 [id number] #### [facility] [address] [place] [address], [facility] Urea nitrogen [Mass/Vol] 16 mg/dL Normal 7-25 The [facility] Comment on above: Order Comment: No: D o not add to previous draw Performed By: #### 8 [id number] #### [facility] [address] [place] [address], [facility] CBC COMPLETE BLOOD COUNTon 0 - Erythrocyte distribution width (RBC) [Ratio] 19.4 % High 11.5-15.0 The [facility] Comment on above: Order Comment: No: D o not add to previous draw Performed By: #### 8 [id number] #### [facility] [address] [place] [address], [facility] Hematocrit (Bld) [Volume fraction] 29.9 % Low 36.0-45.0 The [facility] Comment on above: Order Comment: No: D o not add to previous draw Performed By: #### 8 [id number] #### [facility] [address] [place] [id number], [facility] Hemoglobin (Bld) [Mass/Vol] 9.4 g/dL Low 12.0-15.0 The [facility] Comment on above: Order Comment: No: D o not add to previous draw Performed By: #### 8 [id number] #### [facility] [address] [place] [address], [facility] MCH (RBC) [Entitic mass] 30.4 pg Normal 27.0-33.0 The [facility] Comment on above: Order Comment: No: D o not add to previous draw Performed By: #### 8 [id number] #### [facility] [address] [place] [address], [place] MCHC (RBC) [Mass/Vol] 31.4 g/dL Low 32.0-35.0 The [facility] Comment on above: Order Comment: No: D o not add to previous draw Performed By: #### 8 [id number] #### [facility] [address] [place] [address], [facility] MCV (RBC) [Entitic vol] 96.8 fL Normal 82.0-98.0 The [facility] Comment on above: Order Comment: No: D o not add to previous draw Performed By: #### 8 [id number] #### [facility] [address] [place] [address], [facility] Nucleated RBC/100 WBC (Bld) [Ratio] 0 % Normal 0-0 The [facility] Comment on above: Order Comment: No: D o not add to previous draw Performed By: #### 8 [id number] #### [facility] [address] [place] [id number], [facility] PLAT CNT 325 10*3/uL Normal 150-400 The [facility] Comment on above: Order Comment: No: D o not add to previous draw Performed By: #### 8 [id number] #### [facility] [address] [facility] [place] [address], [facility] RBC (Bld) [#/Vol] 3.09 10*6/uL Low 3.80-5.00 The [facility] Comment on above: Order Comment: No: D o not add to previous draw Performed By: #### 8 [id number] #### [facility] [address] [place] [id number], [place] WBC (Bld) [#/Vol] 21.91 10*3/uL High 4.00-10.60 The [facility] Comment on above: Order Comment: No: D o not add to previous draw Performed By: #### 8 [id number] #### [facility] [address] [place] [address], [place] CREATININE URINE RANDOMon Creatinine (U) [Mass/Vol] 40.0 mg/dL Normal The [facility] Comment on above: Order Comment: The A ptima SARS-CoV-2 assay is a nucleic acid amplification test intended for the qualitative detection of RNA from SARS-CoV-2 isolated and purified from nasopharyngeal (RESEARCH SPECIALIST),oropharyngeal (OP), nasal swab, sputum, and bronchoalveolar lavage (BAL) specimens from patients with signs and symptoms of infection who are suspected of COVID-19. Results are for the identification of SARS-CoV-2 RNA. The SARS-CoV-2 RNA is generally detectable during the acute phase of infection. The Aptima SARS-CoV-2 Assay on the [employer] system is intended for use by laboratory personnel specifically instructed and trained in the operation of the [employer] system. The Aptima SARS-CoV-2 assay is [...] Performed By: #### 3 [id number] #### [facility] [address] [place] [address], [facility] MAGNESIUM BLOODon 04-09-2022 Magnesium [Mass/Vol] 1.9 mg/dL Normal 1.9-2.7 [facility] Comment on above: Order Comment: No: D o not add to previous draw Performed By: #### 8 [id number] #### [facility] [address] [place] [address], [facility] OSMOLALITY URINEon OSMOLALITY 317 mOsm/kg Normal 50-1400 The [facility] Comment on above: Order Comment: The A ptima SARS-CoV-2 assay is a nucleic acid amplification test intended for the qualitative detection of RNA from SARS-CoV-2 isolated and purified from nasopharyngeal (RESEARCH SPECIALIST),oropharyngeal (OP), nasal swab, sputum, and bronchoalveolar lavage (BAL) specimens from patients with signs and symptoms of infection who are suspected of COVID-19. Results are for the identification of SARS-CoV-2 RNA. The SARS-CoV-2 RNA is generally detectable during the acute phase of infection. The Aptima SARS-CoV-2 Assay on the [employer] system is intended for use by laboratory personnel specifically instructed and trained in the operation of the [employer] system. The Aptima SARS-CoV-2 assay is [...] Performed By: #### 3 [id number] #### [facility] [address] POC GLUCOSE LABon 04-09-2022 Glucose [Mass/Vol] 159 mg/dL High 70-100 The [facility] Comment on above: Performed By: #### 8 [id number] #### [facility] [address] [facility] [place] [address], [facility] Glucose [Mass/Vol] 141 mg/dL High 70-100 The [facility] Comment on above: Performed By: #### 8 [id number] #### [facility] [address] [facility] [place] [address], [facility] Glucose [Mass/Vol] 337 mg/dL High 70-100 The [facility] Comment on above: Performed By: #### 8 [id number] #### [facility] [address] [facility] [place] [address], [facility] Glucose [Mass/Vol] 113 mg/dL High 70-100 The [facility] Comment on above: Order Comment: NOTE: Result Checked Performed By: #### 3 0313 #### [facility] SODIUM URINE RANDOMon 2021 Sodium (U) [Moles/Vol] 105 mmol/L Normal [facility] Comment on above: Order Comment: The A ptima SARS-CoV-2 assay is a nucleic acid amplification test intended for the qualitative detection of RNA from SARS-CoV-2 isolated and purified from nasopharyngeal (RESEARCH SPECIALIST),oropharyngeal (OP), nasal swab, sputum, and bronchoalveolar lavage (BAL) specimens from patients with signs and symptoms of infection who are suspected of COVID-19. Results are for the identification of SARS-CoV-2 RNA. The SARS-CoV-2 RNA is generally detectable during the acute phase of infection. The Aptima SARS-CoV-2 Assay on the [employer] system is intended for use by laboratory personnel specifically instructed and trained in the operation of the [employer] system. The Aptima SARS-CoV-2 assay is [...] specimens Performed By: #### 3 [id number] #### [address] UA,MICROSCOPIC REQUIREDon Appearance (U) CLEAR Normal CLEAR The [facility] Comment on above: Order Comment: No: D o not add to previous draw Performed By: #### 8 [id number] #### [place] [address], [facility] Bilirubin Ql (U) Negative Normal NEGATIVE The [facility] Comment on above: Order Comment: No: D o not add to previous draw Performed By: #### 8 [id number] #### [address] [place] [address], [place] BUDDING YEAST FEW Abnormal NONE SEEN The [facility] Comment on above: Order Comment: No: D o not add to previous draw Performed By: #### 8 [id number] #### [facility] [address] [place] [address], [place] Color (U) YELLOW Normal YELLOW The [facility] Comment on above: Order Comment: No: D o not add to previous draw Performed By: #### 8 [id number] #### [facility] [address] [place] [address], [place] EPIS NONE SEEN Normal FEW,OCC,NONE SEEN The [facility] Comment on above: Order Comment: No: D o not add to previous draw Performed By: #### 8 [id number] #### [facility] [address] [place] [address], [place] Glucose Ql (U) Negative Normal NEGATIVE The [facility] Comment on above: Order Comment: No: D o not add to previous draw Performed By: #### 8 [id number] #### [facility] [address] [place] [address], [place] Hemoglobin Ql (U) SMALL Abnormal NEGATIVE The [facility] Comment on above: Order Comment: No: D o not add to previous draw Performed By: #### 8 [id number] #### [facility] [address] [place] [address], [place] KETONE Negative Normal NEGATIVE The [facility] Comment on above: Order Comment: No: D o not add to previous draw Performed By: #### 8 [id number] #### [facility] [address] [place] [address], [place] LEUK LUIS ANTONIO Negative Normal NEGATIVE The [facility] Comment on above: Order Comment: No: D o not add to previous draw Performed By: #### 8 [id number] #### [facility] [address] [place] [address], [place] Nitrite Ql (U) Negative Normal NEGATIVE The [facility] Comment on above: Order Comment: No: D o not add to previous draw Performed By: #### 8 [id number] #### [facility] 3000 [facility]. [address] pH (U) 7.0 [pH] Normal 5.0-8.0 The [facility] Comment on above: Order Comment: No: D o not add to previous draw Performed By: #### 8 [id number] #### [facility] [address] [facility]. [address] Protein Ql (U) Negative Normal NEGATIVE The [facility] Comment on above: Order Comment: No: D o not add to previous draw Performed By: #### 8 [id number] #### [facility] [address] [facility]. [address] RBC 0-2 Abnormal NONE SEEN The [facility] Comment on above: Order Comment: No: D o not add to previous draw Performed By: #### 8 [id number] #### [facility] [address] [facility]. [address] SPEC GRAV 1.008 Low 1.015-1.020 The [facility] Comment on above: Order Comment: No: D o not add to previous draw Performed By: #### 8 [id number] #### [facility] [address] [facility] [place] [address], [facility] WBC UA NONE SEEN Normal NONE SEEN The [facility] Comment on above: Order Comment: No: D o not add to previous draw Performed By: #### 8 [id number] #### [facility] [address] *BLOOD CULTUREon 04-08-2022 *BLOOD CULTURE Clinical Report: (D) Specimen: BLOOD CULTURE Collected: 04/08/2022 18:50 Status: Final Last Updated: 04/14/2022 06:21 CULT RES (Final) No Growth Day 5 Normal The [facility] Comment on above: Performed By: #### 3 0313 #### [facility] [address] [place] [address], [facility] *BLOOD CULTURE Clinical Report: (D) Specimen: BLOOD CULTURE Collected: 04/08/2022 15:33 Status: Final Last Updated: 04/14/2022 06:21 (1) Per denisha Fernandez.labs to be drawn at three CULT RES (Final) No Growth Day 5 Normal The [facility] Comment on above: Order Comment: No: D o not add to previous draw Performed By: #### 5 [id number] #### [facility] [address] [place] [address], [facility] BASIC METABOLIC PANELon 03-19 Calcium [Mass/Vol] 8.9 mg/dL Normal 8.6-10.3 [facility] Comment on above: Order Comment: No: D o not add to previous draw Performed By: #### 2 2706 #### [facility] [address] [place] [address], [place] Chloride [Moles/Vol] 105 mmol/L Normal 98-107 The [facility] Comment on above: Order Comment: No: D o not add to previous draw Performed By: #### 2 2706 #### [facility] [address] [place] [address], [place] CO2 [Moles/Vol] 24 mmol/L Normal 21-31 [facility] Comment on above: Order Comment: No: D o not add to previous draw Performed By: #### 2 2706 #### [facility] [address] [place] [address], [place] Creatinine [Mass/Vol] 1.03 mg/dL Normal 0.60-1.20 The [facility] Comment on above: Order Comment: No: D o not add to previous draw Performed By: #### 2 2706 #### [facility] [address] [place] [address], [place] eGFR- non- 51 ml/min/1.73sq m Abnormal >60 The [facility] Comment on above: Order Comment: No: D o not add to previous draw Result Comment: Calc ulation may not be valid for patients over 70 years Performed By: #### 2 2706 #### [facility] [address] [place] [address], [place] GFR/1.73 sq M.predicted among blacks MDRD (S/P/Bld) [Vol rate/Area] mL/min/{1.73_m2} Normal >60 The [facility] Comment on above: Order Comment: No: D o not add to previous draw Result Comment: Calc ulation may not be valid for patients over 70 years Performed By: #### 2 2706 #### [facility] [address] [place] [address], [place] Glucose [Mass/Vol] 113 mg/dL High 70-100 The [facility] Comment on above: Order Comment: No: D o not add to previous draw Performed By: #### 2 2706 #### [facility] [address] [place] [address], [place] Potassium [Moles/Vol] 4.1 mmol/L Normal 3.5-5.1 The [facility] Comment on above: Order Comment: No: D o not add to previous draw Performed By: #### 2 2706 #### [facility] [address] [place] [address], [place] Sodium [Moles/Vol] 136 mmol/L Normal 136-145 The [facility] Comment on above: Order Comment: No: D o not add to previous draw Performed By: #### 2 2706 #### [facility] [address] [place] [address], [place] Urea nitrogen [Mass/Vol] 11 mg/dL Normal 7-25 The [facility] Comment on above: Order Comment: No: D o not add to previous draw Performed By: #### 2 2706 #### [facility] [address] [facility]. [address] CBC W/DIFFon 04-08-2022 ABS IMM GRANS 0.4 10*3/uL High 0.0-0.2 The [facility] Comment on above: Performed By: #### 8 [id number] #### [facility] [address] [facility] [place] [address], [facility] ABS NEUTROPHILS 24.5 10*3/uL High 1.6-7.[address] [facility] Comment on above: Performed By: #### 8 [id number] #### [facility] [address] [facility] [place] [address], [facility] ANISO Moderate Normal The [facility] Comment on above: Performed By: #### 8 [id number] #### [facility] [address] [facility]. [address] Basophils (Bld) [#/Vol] 0.2 10*3/uL Normal 0.0-0.2 The [facility] Comment on above: Performed By: #### 8 [id number] #### [facility] [address] [facility] [place] [address], [facility] Basophils/100 WBC (Bld) 0.6 % Normal 0.0-1.0 The [facility] Comment on above: Performed By: #### 8 [id number] #### [facility] [address] [facility] [place] [address], [facility] Eosinophils (Bld) [#/Vol] 0.0 10*3/uL Normal 0.0-0.5 The [facility] Comment on above: Performed By: #### 8 [id number] #### [facility] [address] [facility] [place] [address], [facility] Eosinophils/100 WBC (Bld) 0.1 % Normal 0.0-6.0 The [facility] Comment on above: Performed By: #### 8 [id number] #### [facility] [address] [facility]. [address] Erythrocyte distribution width (RBC) [Ratio] 19.1 % High 11.5-15.0 The [facility] Comment on above: Performed By: #### 8 [id number] #### [facility] [address] [facility] [place] [address], [facility] Hematocrit (Bld) [Volume fraction] 32.3 % Low 36.0-45.0 The [facility] Comment on above: Performed By: #### 8 [id number] #### [facility] [address] [facility] [place] [address], [facility] Hemoglobin (Bld) [Mass/Vol] 10.1 g/dL Low 12.0-15.0 The [facility] Comment on above: Performed By: #### 8 [id number] #### [facility] [address] [place] [address], [facility] IMMATURE GRANS 1.5 % High 0.0-1.0 The [facility] Comment on above: Performed By: #### 8 [id number] #### [facility] [address] [facility] [place] [address], [facility] Lymphocytes (Bld) [#/Vol] 1.5 10*3/uL Normal 1.2-4.0 The [facility] Comment on above: Performed By: #### 8 [id number] #### [facility] [address] [facility] [place] [address], [facility] Lymphocytes/100 WBC (Bld) 5.5 % Low 20.0-45.0 The [facility] Comment on above: Performed By: #### 8 [id number] #### [facility] [address] [facility] [place] [address], [facility] MCH (RBC) [Entitic mass] 30.4 pg Normal 27.0-33.0 The [facility] Comment on above: Performed By: #### 8 [id number] #### [facility] [address] [facility] [address] MCHC (RBC) [Mass/Vol] 31.3 g/dL Low 32.0-35.0 The [facility] Comment on above: Performed By: #### 8 [id number] #### [facility] [address] [place] [address], [facility] MCV (RBC) [Entitic vol] 97.3 fL Normal 82.0-98.0 The [facility] Comment on above: Performed By: #### 8 [id number] #### [facility] [address] [facility] [place] [address], [facility] Monocytes (Bld) [#/Vol] 0.6 10*3/uL Normal 0.1-1.0 The [facility] Comment on above: Performed By: #### 8 [id number] #### [facility] [address] [facility] [place] [address], [facility] MONOS 2.1 % Low 5.0-12.0 The [facility] Comment on above: Performed By: #### 8 [id number] #### [facility] [address] [facility] [place] [address], [facility] Neutrophils/100 WBC (Bld) 90.2 % High 40.0-72.0 The [facility] Comment on above: Performed By: #### 8 [id number] #### [facility] [address] [facility] [place] [address], [facility] Nucleated RBC/100 WBC (Bld) [Ratio] 0 % Normal 0-0 The [facility] Comment on above: Performed By: #### 8 [id number] #### [facility] [address] [facility] [place] [address], [facility] PLAT CNT 321 10*3/uL Normal 150-400 The [facility] Comment on above: Performed By: #### 8 [id number] #### [facility] [address] [place] [address], [facility] POIK Slight Normal The [facility] Comment on above: Performed By: #### 8 [id number] #### [facility] [address] [place] [address], [place] POLY Slight Normal The [facility] Comment on above: Performed By: #### 8 [id number] #### [facility] [address] [place] [address], [place] RBC (Bld) [#/Vol] 3.32 10*6/uL Low 3.80-5.00 [facility] Comment on above: Performed By: #### 8 [id number] #### [facility] [address] [place] [address], [place] WBC (Bld) [#/Vol] 27.12 10*3/uL High 4.00-10.60 The [facility] Comment on above: Performed By: #### 8 [id number] #### [facility] [address] [place] [address], [place] MAGNESIUM BLOODon 04-08-2022 Magnesium [Mass/Vol] 1.4 mg/dL Low 1.9-2.7 The [facility] Comment on above: Order Comment: No: D o not add to previous draw Performed By: #### 2 2706 #### [facility] [address] [place] [address], [place] POC GLUCOSE LABon 04-08-2022 Glucose [Mass/Vol] 129 mg/dL High 70-100 The [facility] Comment on above: Performed By: #### 8 [id number] #### [facility] [address] [place] [address], [place] Glucose [Mass/Vol] 130 mg/dL High 70-100 The [facility] Comment on above: Performed By: #### 5 0608 #### [facility] [address] [place] [address], [place] Glucose [Mass/Vol] 132 mg/dL High 70-100 The [facility] Comment on above: Performed By: #### 8 [id number] #### [facility] [address] [place] [address], [place] Glucose [Mass/Vol] 129 mg/dL High 70-100 The [facility] Comment on above: Performed By: #### 8 [id number] #### [facility] [address] [place] [address], [place] BASIC METABOLIC PANELon 05-2 Calcium [Mass/Vol] 7.8 mg/dL Low 8.6-10.3 The [facility] Comment on above: Order Comment: No: D o not add to previous draw Performed By: #### 8 [id number] #### [facility] [address] [place] [address], [place] Chloride [Moles/Vol] 107 mmol/L Normal 98-107 The [facility] Comment on above: Order Comment: No: D o not add to previous draw Performed By: #### 8 [id number] #### [facility] [address] [place] [address], [place] CO2 [Moles/Vol] 26 mmol/L Normal 21-31 The [facility] Comment on above: Order Comment: No: D o not add to previous draw Performed By: #### 8 [id number] #### [facility] [address] [place] [address], [place] Creatinine [Mass/Vol] 1.14 mg/dL Normal 0.60-1.20 The [facility] Comment on above: Order Comment: No: D o not add to previous draw Performed By: #### 8 [id number] #### [facility] [address] [place] [address], [place] eGFR- 55 ml/min/1.73sq m Abnormal >60 The [facility] Comment on above: Order Comment: No: D o not add to previous draw Result Comment: Calc ulation may not be valid for patients over 70 years Performed By: #### 8 [id number] #### [facility] [address] [place] [address], [facility] eGFR- non- 45 ml/min/1.73sq m Abnormal >60 The [facility] Comment on above: Order Comment: No: D o not add to previous draw Result Comment: Calc ulation may not be valid for patients over 70 years Performed By: #### 8 [id number] #### [facility] [address] [place] [address], [place] Glucose [Mass/Vol] 96 mg/dL Normal 70-100 The [facility] Comment on above: Order Comment: No: D o not add to previous draw Performed By: #### 8 [id number] #### [facility] [address] [place] [address], [facility] Potassium [Moles/Vol] 4.0 mmol/L Normal 3.5-5.1 The [facility] Comment on above: Order Comment: No: D o not add to previous draw Performed By: #### 8 [id number] #### [facility] [address] [place] [address], [place] Sodium [Moles/Vol] 139 mmol/L Normal 136-145 [facility] Comment on above: Order Comment: No: D o not add to previous draw Performed By: #### 8 [id number] #### [facility] [address] [place] [address], [facility] Urea nitrogen [Mass/Vol] 13 mg/dL Normal 7-25 [facility] [facility] Comment on above: Order Comment: No: D o not add to previous draw Performed By: #### 8 [id number] #### [facility] [address] [place] [id number], [facility] CBC COMPLETE BLOOD COUNTon 0 5- Erythrocyte distribution width (RBC) [Ratio] 19.3 % High 11.5-15.0 The [facility] Comment on above: Order Comment: No: D o not add to previous draw Performed By: #### 5 0608 #### [facility] [address] [place] [address], [facility] Hematocrit (Bld) [Volume fraction] 27.9 % Low 36.0-45.0 The [facility] Comment on above: Order Comment: No: D o not add to previous draw Performed By: #### 5 0608 #### [facility] [address] [facility] [place] [address], [facility] Hemoglobin (Bld) [Mass/Vol] 8.4 g/dL Low 12.0-15.0 The [facility] Comment on above: Order Comment: No: D o not add to previous draw Performed By: #### 5 0608 #### [facility] [address] MCH (RBC) [Entitic mass] 29.9 pg Normal 27.0-33.0 The [facility] Comment on above: Order Comment: No: D o not add to previous draw Performed By: #### 5 0608 #### [facility] [address] MCHC (RBC) [Mass/Vol] 30.1 g/dL Low 32.0-35.0 The [facility] Comment on above: Order Comment: No: D o not add to previous draw Performed By: #### 5 0608 #### [facility] 3000 [facility]. [address] MCV (RBC) [Entitic vol] 99.3 fL High 82.0-98.0 The [facility] Comment on above: Order Comment: No: D o not add to previous draw Performed By: #### 5 0608 #### [facility] [address] [place] [address], [facility] Nucleated RBC/100 WBC (Bld) [Ratio] 0 % Normal 0-0 The [facility] Comment on above: Order Comment: No: D o not add to previous draw Performed By: #### 5 0608 #### [facility] [address] [place] [address], [facility] PLAT CNT 281 10*3/uL Normal 150-400 The [facility] Comment on above: Order Comment: No: D o not add to previous draw Performed By: #### 5 0608 #### [facility] [address] [place] [address], [facility] RBC (Bld) [#/Vol] 2.81 10*6/uL Low 3.80-5.00 The [facility] Comment on above: Order Comment: No: D o not add to previous draw Performed By: #### 5 0608 #### [facility] [address] [place] [address], [facility] WBC (Bld) [#/Vol] 22.46 10*3/uL High 4.00-10.60 The [facility] Comment on above: Order Comment: No: D o not add to previous draw Performed By: #### 5 0608 #### [facility] [address] [place] [id number], [facility] MAGNESIUM BLOODon 04-07-2022 Magnesium [Mass/Vol] 1.7 mg/dL Low 1.9-2.7 The [facility] Comment on above: Order Comment: No: D o not add to previous draw Performed By: #### 8 [id number] #### [facility] [address] [place] [id number], [facility] POC GLUCOSE LABon 04-07-2022 Glucose [Mass/Vol] 192 mg/dL High 70-100 The [facility] Comment on above: Performed By: #### 8 [id number] ####[facility] [id number], [facility] Glucose [Mass/Vol] 139 mg/dL High 70-100 The [facility] Comment on above: Performed By: #### 8 [id number] #### [facility] [address] [place] [address], [place] Glucose [Mass/Vol] 144 mg/dL High 70-100 The [facility] Comment on above: Performed By: #### 8 [id number] #### [facility] [address] [place] [address], [place] Glucose [Mass/Vol] 111 mg/dL High 70-100 The [facility] Comment on above: Performed By: #### 8 [id number] #### [facility] [address] [place] [address], [place] BASIC METABOLIC PANELon 05-2 0-2021 Calcium [Mass/Vol] 8.2 mg/dL Low 8.6-10.3 The [facility] Comment on above: Order Comment: Bleed , altereed mental status Performed By: #### 0 0071, 72651, 80619, 14626, 99435 ####[facility] [place] [address], [place] Chloride [Moles/Vol] 106 mmol/L Normal 98-107 The [facility] Comment on above: Order Comment: Bleed , altereed mental status Performed By: #### 0 0071, 77581, 07732, 79755, 27113 ####[facility] [place] [address], [place] CO2 [Moles/Vol] 27 mmol/L Normal 21-31 The [facility] Comment on above: Order Comment: Bleed , altereed mental status Performed By: #### 0 0071, 50803, 47354, 04288, 91071 ####[facility] [place] [address], [place] Creatinine [Mass/Vol] 1.07 mg/dL Normal 0.60-1.20 The [facility] Comment on above: Order Comment: Bleed , altereed mental status Performed By: #### 0 0071, 53911, 01559, 72759, 49516 ####[facility] [place] [address], [facility] eGFR- 59 ml/min/1.73sq m Abnormal >60 The [facility] Comment on above: Order Comment: Bleed , altereed mental status Result Comment: Calc ulation may not be valid for patients over 70 years Performed By: #### 0 0071, 87203, 24274, 27651, 46898 ####[facility] [place] [address], [facility] eGFR- non- 49 ml/min/1.73sq m Abnormal >60 The [facility] Comment on above: Order Comment: Bleed , altereed mental status Result Comment: Calc ulation may not be valid for patients over 70 years Performed By: #### 0 0071, 42838, 98742, 16168, 29100 ####[facility] [place] [address], [facility] Glucose [Mass/Vol] 100 mg/dL Normal 70-100 The [facility] Comment on above: Order Comment: Bleed , altereed mental status Performed By: #### 0 0071, 59034, 89244, 20244, 17540 ####[facility] [place] [address], [facility] Potassium [Moles/Vol] 4.0 mmol/L Normal 3.5-5.1 The [facility] Comment on above: Order Comment: Bleed , altereed mental status Performed By: #### 0 0071, 50259, 64934, 88576, 26285 ####[facility] [place] [address], [place] Sodium [Moles/Vol] 139 mmol/L Normal 136-145 The [facility] Comment on above: Order Comment: Bleed , altereed mental status Performed By: #### 0 0071, 80400, 00751, 34178, 40635 ####[facility] Urea nitrogen [Mass/Vol] 15 mg/dL Normal 7-25 The [facility] Comment on above: Order Comment: Bleed , altereed mental status Performed By: #### 0 0071, 59425, 48190, 73164, 78832 ####[facility] BNP (B-TYPE NATRIURETIC PEPT KAELA)on 04-06-2022 Natriuretic peptide B (Bld) [Mass/Vol] 487 pg/mL High 0-100 The [facility] Comment on above: Order Comment: Yes: Add to Previous draw if able Result Comment: Give n the appropriate clinical setting a BNP result of >100 pg/mL indicates congestive heart failure. Performed By: #### 8 [id number] #### [facility] [address] CBC W/DIFFon 04-06-2022 ABS IMM GRANS 0.5 10*3/uL High 0.0-0.2 The [facility] Comment on above: Order Comment: No: D o not add to previous draw Performed By: #### 8 5499 #### [facility] [address] [place] [address], [facility] ABS NEUTROPHILS 18.4 10*3/uL High 1.6-7.[address] [facility] Comment on above: Order Comment: No: D o not add to previous draw Performed By: #### 8 [id number] #### [facility] 3000 [facility] [place] [address], [facility] Basophils (Bld) [#/Vol] 0.1 10*3/uL Normal 0.0-0.2 The [facility] Comment on above: Order Comment: No: D o not add to previous draw Performed By: #### 8 [id number] #### [facility] [address] [facility] [place] [address], [facility] Basophils/100 WBC (Bld) 0.5 % Normal 0.0-1.0 The [facility] Comment on above: Order Comment: No: D o not add to previous draw Performed By: #### 8 [id number] #### [facility] [address] [facility] [place] [address], [facility] Eosinophils (Bld) [#/Vol] 0.0 10*3/uL Normal 0.0-0.5 The [facility] Comment on above: Order Comment: No: D o not add to previous draw Performed By: #### 8 [id number] #### [facility] [address] [facility] [place] [address], [facility] Eosinophils/100 WBC (Bld) 0.0 % Normal 0.0-6.0 The [facility] Comment on above: Order Comment: No: D o not add to previous draw Performed By: #### 8 [id number] #### [facility] [address] [facility] [address] Erythrocyte distribution width (RBC) [Ratio] 19.4 % High 11.5-15.0 The [facility] Comment on above: Order Comment: No: D o not add to previous draw Performed By: #### 8 [id number] #### [facility] [address] [facility] [place] [address], [facility] Hematocrit (Bld) [Volume fraction] 28.6 % Low 36.0-45.0 The [facility] Comment on above: Order Comment: No: D o not add to previous draw Performed By: #### 8 [id number] #### [facility] [address] [facility] [place] [address], [facility] Hemoglobin (Bld) [Mass/Vol] 8.8 g/dL Low 12.0-15.0 The [facility] Comment on above: Order Comment: No: D o not add to previous draw Performed By: #### 8 [id number] #### [facility] [address] [place] [address], [facility] IMMATURE GRANS 2.3 % High 0.0-1.0 The [facility] Comment on above: Order Comment: No: D o not add to previous draw Performed By: #### 8 [id number] #### [facility] [address] [facility] [place] [address], [facility] Lymphocytes (Bld) [#/Vol] 1.5 10*3/uL Normal 1.2-4.0 The [facility] Comment on above: Order Comment: No: D o not add to previous draw Performed By: #### 8 [id number] #### [facility] [address] [facility] [place] [address], [facility] Lymphocytes/100 WBC (Bld) 7.2 % Low 20.0-45.0 The [facility] Comment on above: Order Comment: No: D o not add to previous draw Performed By: #### 8 [id number] #### [facility] [address] [facility] [place] [address], [facility] MCH (RBC) [Entitic mass] 30.1 pg Normal 27.0-33.0 The [facility] Comment on above: Order Comment: No: D o not add to previous draw Performed By: #### 8 [id number] #### [facility] [address] [facility] [place] [address], [facility] MCHC (RBC) [Mass/Vol] 30.8 g/dL Low 32.0-35.0 The [facility] Comment on above: Order Comment: No: D o not add to previous draw Performed By: #### 8 [id number] #### [facility] [address] [facility] [place] [id number], [facility] MCV (RBC) [Entitic vol] 97.9 fL Normal 82.0-98.0 The [facility] Comment on above: Order Comment: No: D o not add to previous draw Performed By: #### 8 [id number] #### [facility] [address] [place] [address], [facility] Monocytes (Bld) [#/Vol] 0.3 10*3/uL Normal 0.1-1.0 The [facility] Comment on above: Order Comment: No: D o not add to previous draw Performed By: #### 8 [id number] #### [facility] [address] [place] [id number], [facility] MONOS 1.6 % Low 5.0-12.0 The [facility] Comment on above: Order Comment: No: D o not add to previous draw Performed By: #### 8 [id number] #### [facility] [address] [place] [address], [facility] Neutrophils/100 WBC (Bld) 88.4 % High 40.0-72.0 The [facility] Comment on above: Order Comment: No: D o not add to previous draw Performed By: #### 8 [id number] #### [facility] [address] [place] [address], [facility] Nucleated RBC/100 WBC (Bld) [Ratio] 0 % Normal 0-0 The [facility] Comment on above: Order Comment: No: D o not add to previous draw Performed By: #### 8 [id number] #### [facility] [address] [place] [address], [facility] PLAT CNT 279 10*3/uL Normal 150-400 The [facility] Comment on above: Order Comment: No: D o not add to previous draw Performed By: #### 8 [id number] #### [facility] [address] [place] [address], [facility] RBC (Bld) [#/Vol] 2.92 10*6/uL Low 3.80-5.00 The [facility] Comment on above: Order Comment: No: D o not add to previous draw Performed By: #### 8 [id number] #### [facility] [address] [place] [address], [place] WBC (Bld) [#/Vol] 20.84 10*3/uL High 4.00-10.60 The [facility] Comment on above: Order Comment: No: D o not add to previous draw Performed By: #### 8 [id number] #### [facility] [address] [place] [address], [facility] DIGOXINon 04-06-2022 Digoxin [Mass/Vol] 1.0 ng/mL Normal 0.7-2.0 [facility] Comment on above: Performed By: #### 0 0071, 58964, 08400, 43252, 82496 ####[facility] [place] [address], [facility] LIPASE BLOODon 04-06-2022 LIPASE 68 Units/L Normal 11-82 The [facility] Comment on above: Performed By: #### 0 0071, 59687, 84369, 31911, 89332 ####[facility] [place] [address], [facility] MAGNESIUM BLOODon 04-06-2022 Magnesium [Mass/Vol] 1.6 mg/dL Low 1.9-2.7 The [facility] Comment on above: Order Comment: Bleed , altereed mental status Performed By: #### 0 0071, 89050, 00456, 73023, 72947 ####[facility] [place] [address], [facility] PHOSPHORUS BLOODon 2 Phosphate [Mass/Vol] 3.5 mg/dL Normal 2.5-5.0 The [facility] Comment on above: Order Comment: No: D o not add to previous draw Performed By: #### 8 [id number] #### [facility] [address] [place] [address], [place] POC GLUCOSE LABon 04-06-2022 Glucose [Mass/Vol] 121 mg/dL High 70-100 The [facility] Comment on above: Performed By: #### 3 0313 #### [facility] [address] [place] [address], [place] Glucose [Mass/Vol] 171 mg/dL High 70-100 The [facility] Comment on above: Performed By: #### 8 [id number] #### [facility] [address] [place] [address], [facility] Glucose [Mass/Vol] 178 mg/dL High 70-100 The [facility] Comment on above: Performed By: #### 8 [id number] #### [facility] [address] [facility] [place] [address], [facility] Glucose [Mass/Vol] 102 mg/dL High 70-100 The [facility] Comment on above: Performed By: #### 5 0608 #### [facility] [address] [facility]. [address] APTTon 04-05-2022 aPTT Coag (Bld) [Time] 29.7 s Normal 25.0-35.0 The [facility] Comment on above: Order Comment: No: D [...] Performed By: #### 8 [id number] #### [facility] [address] [facility] [place] [address], [facility] CBC W/DIFFon 04-05-2022 ABS IMM GRANS 0.4 10*3/uL High 0.0-0.2 The [facility] Comment on above: Order Comment: No: D o not add to previous draw Performed By: #### 8 [id number] #### [facility] [address] [place] [address], [facility] ABS NEUTROPHILS 19.7 10*3/uL High 1.6-7.[address] [facility] Comment on above: Order Comment: No: D o not add to previous draw Performed By: #### 8 [id number] #### [facility] [address] [place] [address], [facility] ANISO Moderate Normal The [facility] Comment on above: Order Comment: No: D o not add to previous draw Performed By: #### 8 [id number] #### [facility] [address] [place] [id number], [facility] Basophils (Bld) [#/Vol] 0.2 10*3/uL Normal 0.0-0.2 The [facility] Comment on above: Order Comment: No: D o not add to previous draw Performed By: #### 8 [id number] #### [facility] [address] [place] [address], [facility] Basophils/100 WBC (Bld) 0.7 % Normal 0.0-1.0 The [facility] Comment on above: Order Comment: No: D o not add to previous draw Performed By: #### 8 [id number] #### [facility] [address] [place] [id number], [facility] Eosinophils (Bld) [#/Vol] 0.0 10*3/uL Normal 0.0-0.5 The [facility] Comment on above: Order Comment: No: D o not add to previous draw Performed By: #### 8 [id number] #### [facility] [address] [place] [address], [facility] Eosinophils/100 WBC (Bld) 0.1 % Normal 0.0-6.0 The [facility] Comment on above: Order Comment: No: D o not add to previous draw Performed By: #### 8 [id number] #### [facility] [address] [place] [address], [facility] Erythrocyte distribution width (RBC) [Ratio] 19.5 % High 11.5-15.0 The [facility] Comment on above: Order Comment: No: D o not add to previous draw Performed By: #### 8 [id number] #### [facility] [address] [place] [address], [facility] Hematocrit (Bld) [Volume fraction] 27.8 % Low 36.0-45.0 The [facility] Comment on above: Order Comment: No: D o not add to previous draw Performed By: #### 8 [id number] #### [facility] [address] [place] [id number], [facility] Hemoglobin (Bld) [Mass/Vol] 8.6 g/dL Low 12.0-15.0 The [facility] Comment on above: Order Comment: No: D o not add to previous draw Performed By: #### 8 [id number] #### [facility] [address] [facility] [place] [address], [facility] IMMATURE GRANS 2.0 % High 0.0-1.0 The [facility] Comment on above: Order Comment: No: D o not add to previous draw Performed By: #### 8 [id number] #### [facility] [address] [facility] [place] [address], [facility] Lymphocytes (Bld) [#/Vol] 1.4 10*3/uL Normal 1.2-4.0 The [facility] Comment on above: Order Comment: No: D o not add to previous draw Performed By: #### 8 [id number] #### [facility] [address] [place] [address], [facility] Lymphocytes/100 WBC (Bld) 6.5 % Low 20.0-45.0 The [facility] Comment on above: Order Comment: No: D o not add to previous draw Performed By: #### 8 [id number] #### [facility] [address] [place] [address], [facility] MCH (RBC) [Entitic mass] 30.3 pg Normal 27.0-33.0 The [facility] Comment on above: Order Comment: No: D o not add to previous draw Performed By: #### 8 [id number] #### [facility] [address] [place] [id number], [facility] MCHC (RBC) [Mass/Vol] 30.9 g/dL Low 32.0-35.0 The [facility] Comment on above: Order Comment: No: D o not add to previous draw Performed By: #### 8 [id number] #### [facility] [address] [place] [address], [facility] MCV (RBC) [Entitic vol] 97.9 fL Normal 82.0-98.0 The [facility] Comment on above: Order Comment: No: D o not add to previous draw Performed By: #### 8 [id number] #### [facility] [address] [place] [id number], [facility] Monocytes (Bld) [#/Vol] 0.4 10*3/uL Normal 0.1-1.0 The [facility] Comment on above: Order Comment: No: D o not add to previous draw Performed By: #### 8 [id number] #### [facility] [address] [place] [id number], [facility] MONOS 1.9 % Low 5.0-12.0 The [facility] Comment on above: Order Comment: No: D o not add to previous draw Performed By: #### 8 [id number] #### [facility] [address] [place] [id number], [facility] Neutrophils/100 WBC (Bld) 88.8 % High 40.0-72.0 The [facility] Comment on above: Order Comment: No: D o not add to previous draw Performed By: #### 8 [id number] #### [facility] [address] [place] [id number], [facility] Nucleated RBC/100 WBC (Bld) [Ratio] 0 % Normal 0-0 The [facility] Comment on above: Order Comment: No: D o not add to previous draw Performed By: #### 8 [id number] #### [facility] [address] [place] [address], [facility] PLAT CNT 303 10*3/uL Normal 150-400 The [facility] Comment on above: Order Comment: No: D o not add to previous draw Performed By: #### 8 [id number] #### [facility] [address] [facility]. [address] POIK Slight Normal The [facility] Comment on above: Order Comment: No: D o not add to previous draw Performed By: #### 8 [id number] #### [facility] [address] [place] [address], [facility] POLY Slight Normal The [facility] Comment on above: Order Comment: No: D o not add to previous draw Performed By: #### 8 [id number] #### [facility] [address] RBC (Bld) [#/Vol] 2.84 10*6/uL Low 3.80-5.00 The [facility] Comment on above: Order Comment: No: D o not add to previous draw Performed By: [id number] #### [facility] [address] [place] [address], [facility] WBC (Bld) [#/Vol] 22.20 10*3/uL High 4.00-10.60 [facility] Comment on above: Order Comment: No: D o not add to previous draw Performed By: #### [id number] #### [facility] [address] COMP METABOLIC PANELon 04-05 Albumin [Mass/Vol] 2.5 g/dL Low 3.5-5.7 The [facility] Comment on above: Order Comment: The A ptima SARS-CoV-2 assay is a nucleic acid amplification test intended for the qualitative detection of RNA from SARS-CoV-2 isolated and purified from nasopharyngeal (RESEARCH SPECIALIST),oropharyngeal (OP), nasal swab, sputum, and bronchoalveolar lavage (BAL) specimens from patients with signs and symptoms of infection who are suspected of COVID-19. Results are for the identification of SARS-CoV-2 RNA. The SARS-CoV-2 RNA is generally detectable during the acute phase of infection. The Aptima SARS-CoV-2 Assay on the [employer] system is intended for use by laboratory personnel specifically instructed and trained in the operation of the [employer] system. The Aptima SARS-CoV-2 assay is [...] Performed By: #### 3 1792 #### [facility] [address] ALKALINE PHOSPH 100 IU/L Normal 34-104 The [facility] Comment on above: Order Comment: The A ptima SARS-CoV-2 assay is a nucleic acid amplification test intended for the qualitative detection of RNA from SARS-CoV-2 isolated and purified from nasopharyngeal (RESEARCH SPECIALIST),oropharyngeal (OP), nasal swab, sputum, and bronchoalveolar lavage (BAL) specimens from patients with signs and symptoms of infection who are suspected of COVID-19. Results are for the identification of SARS-CoV-2 RNA. The SARS-CoV-2 RNA is generally detectable during the acute phase of infection. The Aptima SARS-CoV-2 Assay on the [employer] system is intended for use by laboratory personnel specifically instructed and trained in the operation of the [employer] system. The Aptima SARS-CoV-2 assay is [...] Performed By: #### 3 [id number] #### [facility] 3000 [facility] [place], [place] [id number] [place] [address] ALT [Catalytic activity/Vol] 13 U/L Normal 7-52 The [facility] Comment on above: Order Comment: The A ptima SARS-CoV-2 assay is a nucleic acid amplification test intended for the qualitative detection of RNA from SARS-CoV-2 isolated and purified from nasopharyngeal (RESEARCH SPECIALIST),oropharyngeal (OP), nasal swab, sputum, and bronchoalveolar lavage (BAL) specimens from patients with signs and symptoms of infection who are suspected of COVID-19. Results are for the identification of SARS-CoV-2 RNA. The SARS-CoV-2 RNA is generally detectable during the acute phase of infection. The Aptima SARS-CoV-2 Assay on the [employer] system is intended for use by laboratory personnel specifically instructed and trained in the operation of the [employer] system. The Aptima SARS-CoV-2 assay is [...] Performed By: #### 3 1792 #### [facility] 3000 [facility] [place] [address], [facility] AST [Catalytic activity/Vol] 12 U/L Low 13-39 The [facility] Comment on above: Order Comment: The A ptima SARS-CoV-2 assay is a nucleic acid amplification test intended for the qualitative detection of RNA from SARS-CoV-2 isolated and purified from nasopharyngeal (RESEARCH SPECIALIST),oropharyngeal (OP), nasal swab, sputum, and bronchoalveolar lavage (BAL) specimens from patients with signs and symptoms of infection who are suspected of COVID-19. Results are for the identification of SARS-CoV-2 RNA. The SARS-CoV-2 RNA is generally detectable during the acute phase of infection. The Aptima SARS-CoV-2 Assay on the [employer] system is intended for use by laboratory personnel specifically instructed and trained in the operation of the [employer] system. The Aptima SARS-CoV-2 assay is [...] Performed By: #### 3 1792 #### [facility] [address] Bilirubin [Mass/Vol] 0.8 mg/dL Normal 0.3-1.0 The [facility] Comment on above: Order Comment: The A ptima SARS-CoV-2 assay is a nucleic acid amplification test intended for the qualitative detection of RNA from SARS-CoV-2 isolated and purified from nasopharyngeal (RESEARCH SPECIALIST),oropharyngeal (OP), nasal swab, sputum, and bronchoalveolar lavage (BAL) specimens from patients with signs and symptoms of infection who are suspected of COVID-19. Results are for the identification of SARS-CoV-2 RNA. The SARS-CoV-2 RNA is generally detectable during the acute phase of infection. The Aptima SARS-CoV-2 Assay on the [employer] system is intended for use by laboratory personnel specifically instructed and trained in the operation of the [employer] system. The Aptima SARS-CoV-2 assay is [...] Performed By: #### 3 1792 #### [facility] 3000 [facility] Calcium [Mass/Vol] 8.1 mg/dL Low 8.6-10.3 The [facility] Comment on above: Order Comment: The A ptima SARS-CoV-2 assay is a nucleic acid amplification test intended for the qualitative detection of RNA from SARS-CoV-2 isolated and purified from nasopharyngeal (RESEARCH SPECIALIST),oropharyngeal (OP), nasal swab, sputum, and bronchoalveolar lavage (BAL) specimens from patients with signs and symptoms of infection who are suspected of COVID-19. Results are for the identification of SARS-CoV-2 RNA. The SARS-CoV-2 RNA is generally detectable during the acute phase of infection. The Aptima SARS-CoV-2 Assay on the [employer] system is intended for use by laboratory personnel specifically instructed and trained in the operation of the [employer] system. The Aptima SARS-CoV-2 assay is [...] Performed By: #### 3 1792 #### [facility] [employer]. [address] Chloride [Moles/Vol] 106 mmol/L Normal 98-107 The [facility] Comment on above: Order Comment: The A ptima SARS-CoV-2 assay is a nucleic acid amplification test intended for the qualitative detection of RNA from SARS-CoV-2 isolated and purified from nasopharyngeal (RESEARCH SPECIALIST),oropharyngeal (OP), nasal swab, sputum, and bronchoalveolar lavage (BAL) specimens from patients with signs and symptoms of infection who are suspected of COVID-19. Results are for the identification of SARS-CoV-2 RNA. The SARS-CoV-2 RNA is generally detectable during the acute phase of infection. The Aptima SARS-CoV-2 Assay on the [employer] system is intended for use by laboratory personnel specifically instructed and trained in the operation of the [employer] system. The Aptima SARS-CoV-2 assay is [...] Performed By: #### 3 1792 #### [facility] [address] [place] [address], [facility] CO2 [Moles/Vol] 26 mmol/L Normal 21-31 [facility] Comment on above: Order Comment: The A ptima SARS-CoV-2 assay is a nucleic acid amplification test intended for the qualitative detection of RNA from SARS-CoV-2 isolated and purified from nasopharyngeal (RESEARCH SPECIALIST),oropharyngeal (OP), nasal swab, sputum, and bronchoalveolar lavage (BAL) specimens from patients with signs and symptoms of infection who are suspected of COVID-19. Results are for the identification of SARS-CoV-2 RNA. The SARS-CoV-2 RNA is generally detectable during the acute phase of infection. The Aptima SARS-CoV-2 Assay on the [employer] system is intended for use by laboratory personnel specifically instructed and trained in the operation of the [employer] system. The Aptima SARS-CoV-2 assay is [...] Performed By: #### 3 1792 #### [facility] [address] [place] [address], [facility] Creatinine [Mass/Vol] 1.24 mg/dL High 0.60-1.20 The [facility] Comment on above: Order Comment: The A ptima SARS-CoV-2 assay is a nucleic acid amplification test intended for the qualitative detection of RNA from SARS-CoV-2 isolated and purified from nasopharyngeal (RESEARCH SPECIALIST),oropharyngeal (OP), nasal swab, sputum, and bronchoalveolar lavage (BAL) specimens from patients with signs and symptoms of infection who are suspected of COVID-19. Results are for the identification of SARS-CoV-2 RNA. The SARS-CoV-2 RNA is generally detectable during the acute phase of infection. The Aptima SARS-CoV-2 Assay on the [employer] system is intended for use by laboratory personnel specifically instructed and trained in the operation of the [employer] system. The Aptima SARS-CoV-2 assay is [...] Performed By: #### 3 1792 #### [facility] 3000 [facility] eGFR- 50 ml/min/1.73sq m Abnormal >60 The [facility] Comment on above: Order Comment: The A ptima SARS-CoV-2 assay is a nucleic acid amplification test intended for the qualitative detection of RNA from SARS-CoV-2 isolated and purified from nasopharyngeal (RESEARCH SPECIALIST),oropharyngeal (OP), nasal swab, sputum, and bronchoalveolar lavage (BAL) specimens from patients with signs and symptoms of infection who are suspected of COVID-19. Results are for the identification of SARS-CoV-2 RNA. The SARS-CoV-2 RNA is generally detectable during the acute phase of infection. The Aptima SARS-CoV-2 Assay on the [employer] system is intended for use by laboratory personnel specifically instructed and trained in the operation of the [employer] system. The Aptima SARS-CoV-2 assay is [...] Performed By: #### 3 1792 #### [facility] 3000 [facility] [place] [place] [address], [facility] eGFR- non- 42 ml/min/1.73sq m Abnormal >60 The [facility] Comment on above: Order Comment: The A ptima SARS-CoV-2 assay is a nucleic acid amplification test intended for the qualitative detection of RNA from SARS-CoV-2 isolated and purified from nasopharyngeal (RESEARCH SPECIALIST),oropharyngeal (OP), nasal swab, sputum, and bronchoalveolar lavage (BAL) specimens from patients with signs and symptoms of infection who are suspected of COVID-19. Results are for the identification of SARS-CoV-2 RNA. The SARS-CoV-2 RNA is generally detectable during the acute phase of infection. The Aptima SARS-CoV-2 Assay on the [employer] system is intended for use by laboratory personnel specifically instructed and trained in the operation of the [employer] system. The Aptima SARS-CoV-2 assay is [...] Performed By: #### 3 1792 #### [facility] [address] [place] [address], [facility] Glucose [Mass/Vol] 95 mg/dL Normal 70-100 [facility] Comment on above: Order Comment: The A ptima SARS-CoV-2 assay is a nucleic acid amplification test intended for the qualitative detection of RNA from SARS-CoV-2 isolated and purified from nasopharyngeal (RESEARCH SPECIALIST),oropharyngeal (OP), nasal swab, sputum, and bronchoalveolar lavage (BAL) specimens from patients with signs and symptoms of infection who are suspected of COVID-19. Results are for the identification of SARS-CoV-2 RNA. The SARS-CoV-2 RNA is generally detectable during the acute phase of infection. The Aptima SARS-CoV-2 Assay on the [employer] system is intended for use by laboratory personnel specifically instructed and trained in the operation of the [employer] system. The Aptima SARS-CoV-2 assay is [...] information. Performed By: #### 3 1792 #### [address] Potassium [Moles/Vol] 4.1 mmol/L Normal 3.5-5.1 The [facility] Comment on above: Order Comment: The A ptima SARS-CoV-2 assay is a nucleic acid amplification test intended for the qualitative detection of RNA from SARS-CoV-2 isolated and purified from nasopharyngeal (RESEARCH SPECIALIST),oropharyngeal (OP), nasal swab, sputum, and bronchoalveolar lavage (BAL) specimens from patients with signs and symptoms of infection who are suspected of COVID-19. Results are for the identification of SARS-CoV-2 RNA. The SARS-CoV-2 RNA is generally detectable during the acute phase of infection. The Aptima SARS-CoV-2 Assay on the [employer] system is intended for use by laboratory personnel specifically instructed and trained in the operation of the [employer] system. The Aptima SARS-CoV-2 assay is [...] Performed By: #### 3 1792 #### [facility] 3000 [facility] [place] [address], [facility] Protein [Mass/Vol] 5.0 g/dL Low 6.0-8.3 The [facility] Comment on above: Order Comment: The A ptima SARS-CoV-2 assay is a nucleic acid amplification test intended for the qualitative detection of RNA from SARS-CoV-2 isolated and purified from nasopharyngeal (RESEARCH SPECIALIST),oropharyngeal (OP), nasal swab, sputum, and bronchoalveolar lavage (BAL) specimens from patients with signs and symptoms of infection who are suspected of COVID-19. Results are for the identification of SARS-CoV-2 RNA. The SARS-CoV-2 RNA is generally detectable during the acute phase of infection. The Aptima SARS-CoV-2 Assay on the [employer] system is intended for use by laboratory personnel specifically instructed and trained in the operation of the [employer] system. The Aptima SARS-CoV-2 assay is [...] and epidemiological information. Performed By: #### 3 1793 #### [facility] 3000 [facility] [place] [address], [facility] Sodium [Moles/Vol] 138 mmol/L Normal 136-145 The [facility] Comment on above: Order Comment: The A ptima SARS-CoV-2 assay is a nucleic acid amplification test intended for the qualitative detection of RNA from SARS-CoV-2 isolated and purified from nasopharyngeal (RESEARCH SPECIALIST),oropharyngeal (OP), nasal swab, sputum, and bronchoalveolar lavage (BAL) specimens from patients with signs and symptoms of infection who are suspected of COVID-19. Results are for the identification of SARS-CoV-2 RNA. The SARS-CoV-2 RNA is generally detectable during the acute phase of infection. The Aptima SARS-CoV-2 Assay on the [employer] system is intended for use by laboratory personnel specifically instructed and trained in the operation of the [employer] system. The Aptima SARS-CoV-2 assay is [...] Performed By: #### 3 1792 #### [facility] [address] Urea nitrogen [Mass/Vol] 24 mg/dL Normal 7-25 The [facility] Comment on above: Order Comment: The A ptima SARS-CoV-2 assay is a nucleic acid amplification test intended for the qualitative detection of RNA from SARS-CoV-2 isolated and purified from nasopharyngeal (RESEARCH SPECIALIST),oropharyngeal (OP), nasal swab, sputum, and bronchoalveolar lavage (BAL) specimens from patients with signs and symptoms of infection who are suspected of COVID-19. Results are for the identification of SARS-CoV-2 RNA. The SARS-CoV-2 RNA is generally detectable during the acute phase of infection. The Aptima SARS-CoV-2 Assay on the [employer] system is intended for use by laboratory personnel specifically instructed and trained in the operation of the [employer] system. The Aptima SARS-CoV-2 assay is [...] Performed By: #### 3 1792 #### [facility] 3000 [facility] [place] [address], [facility] HEMOGLOBINon 04-05-2022 Hemoglobin (Bld) [Mass/Vol] 8.9 g/dL Low 12.0-15.0 The [facility] Comment on above: Order Comment: No: D o not add to previous draw Performed By: #### 8 [id number] #### [facility] [address] [facility] [place] [address], [facility] Hemoglobin (Bld) [Mass/Vol] 10.1 g/dL Low 12.0-15.0 The [facility] Comment on above: Order Comment: No: D o not add to previous draw Performed By: #### 8 [id number] #### [facility] 3000 [place] [address], [facility] MAGNESIUM BLOODon 04-05-2022 Magnesium [Mass/Vol] 1.6 mg/dL Low 1.9-2.7 The [facility] Comment on above: Order Comment: The A ptima SARS-CoV-2 assay is a nucleic acid amplification test intended for the qualitative detection of RNA from SARS-CoV-2 isolated and purified from nasopharyngeal (RESEARCH SPECIALIST),oropharyngeal (OP), nasal swab, sputum, and bronchoalveolar lavage (BAL) specimens from patients with signs and symptoms of infection who are suspected of COVID-19. Results are for the identification of SARS-CoV-2 RNA. The SARS-CoV-2 RNA is generally detectable during the acute phase of infection. The Aptima SARS-CoV-2 Assay on the [employer] system is intended for use by laboratory personnel specifically instructed and trained in the operation of the [employer] system. The Aptima SARS-CoV-2 assay is [...] Performed By: #### 3 1792 #### [facility] 3000 [facility] [place] [address], [facility] PHOSPHORUS BLOODon 2 Phosphate [Mass/Vol] 3.5 mg/dL Normal 2.5-5.0 [facility] Comment on above: Order Comment: The A ptima SARS-CoV-2 assay is a nucleic acid amplification test intended for the qualitative detection of RNA from SARS-CoV-2 isolated and purified from nasopharyngeal (RESEARCH SPECIALIST),oropharyngeal (OP), nasal swab, sputum, and bronchoalveolar lavage (BAL) specimens from patients with signs and symptoms of infection who are suspected of COVID-19. Results are for the identification of SARS-CoV-2 RNA. The SARS-CoV-2 RNA is generally detectable during the acute phase of infection. The Aptima SARS-CoV-2 Assay on the [employer] system is intended for use by laboratory personnel specifically instructed and trained in the operation of the [employer] system. The Aptima SARS-CoV-2 assay is [...] Performed By: #### 3 1792 #### [facility] 3000 [place] [address], [facility] POC GLUCOSE LABon 04-05-2022 Glucose [Mass/Vol] 115 mg/dL High 70-100 The [facility] Comment on above: Performed By: #### 5 [id number] #### [facility] [address] [place] [address], [place] Glucose [Mass/Vol] 119 mg/dL High 70-100 The [facility] Comment on above: Performed By: #### 8 [id number] #### [facility] [address] [place] [address], [place] Glucose [Mass/Vol] 145 mg/dL High 70-100 The [facility] Comment on above: Performed By: #### 8 [id number] #### [facility] [address] [place] [address], [place] Glucose [Mass/Vol] 108 mg/dL High 70-100 The [facility] Comment on above: Performed By: #### 8 [id number] #### [facility] [address] [place] [address], [place] Glucose [Mass/Vol] 117 mg/dL High 70-100 The [facility] Comment on above: Performed By: #### 8 [id number] #### [facility] [address] [place] [address], [facility] PROTHROMBIN TIMEon 2 INR Coag (PPP) [Relative time] 1.13 {INR} Normal 0.91-1.16 The [facility] Comment on above: Order Comment: No: D [...] Performed By: #### 8 [id number] #### [facility] [address] [place] [address], [facility] PT Coag (PPP) [Time] 14.5 s Normal 12.3-14.8 [facility] Comment on above: Order Comment: No: D o not add to previous draw Result Comment: ALL RESULTS MUST BE INTERPRETED WITH RESPECT TO BLOOD DRAWING ARTIFACT OR DILUTION ERROR OF ANTICOAGULANT AT THE TIME OF SAMPLING. Performed By: #### 8 [id number] #### [facility] 3000 [facility] [address] APTTon 04-04-2022 aPTT Coag (Bld) [Time] 31.2 s Normal 25.0-35.0 [facility] Comment on above: Order Comment: [...] Performed By: #### 8 [id number] #### [facility] [address] ARTERIAL BLOOD GAS WITH ICAo n 04-04-2022 BASE EXCESS 0 mmol/L Normal -2-3 The [facility] Comment on above: Performed By: #### 8 [id number] #### [facility] [address] [facility] [place] [address], [facility] DELIVERY SYSTEM[employer] NASAL CANNULA Normal The [facility] Comment on above: Performed By: #### 8 [id number] #### [facility] [address] [place] [address], [facility] HCO3 (Bld) [Moles/Vol] 26 mmol/L Normal 21-28 The [facility] Comment on above: Performed By: #### 8 [id number] #### [facility] [address] [place] [address], [facility] IONIZED CALCIUM 1.18 mmol/L Normal 1.13-1.[address] [facility] Comment on above: Performed By: #### 8 [id number] #### [facility] [address] [facility] [place] [address], [facility] LPM 2.0 LPM Normal [facility] Comment on above: Performed By: #### 8 [id number] #### [facility] [address] [facility] [place] [address], [facility] Oxygen (Bld) [Partial pressure] 74 mm[Hg] Low 83-108 The [facility] Comment on above: Performed By: #### 8 [id number] #### [facility] [address] [facility] Oxygen saturation in Blood 95.4 % Normal 94.0-97.0 The [facility] Comment on above: Performed By: #### 8 [id number] #### [facility] [address] [facility] [place] [address], [facility] PCO2 45 mmHg Normal 35-45 The [facility] Comment on above: Performed By: #### 8 [id number] #### [facility] [address] [facility] [address], [facility] pH (Bld) 7.37 [pH] Normal 7.35-7.45 The [facility] Comment on above: Performed By: #### 8 [id number] #### [facility] [address] [place] [address], [facility] CBC W/DIFFon 04-04-2022 ABS IMM GRANS 0.7 10*3/uL High 0.0-0.2 The [facility] Comment on above: Order Comment: No: D o not add to previous draw Performed By: #### 8 [id number] #### [facility] [address] [place] [address], [facility] ABS NEUTROPHILS 19.9 10*3/uL High 1.6-7.[address] [facility] Comment on above: Order Comment: No: D o not add to previous draw Performed By: #### 8 [id number] #### [facility] [address] [place] [address], [facility] ANISO Moderate Normal The [facility] Comment on above: Order Comment: No: D o not add to previous draw Performed By: #### 8 [id number] #### [facility] [address] [place] [address], [facility] Basophils (Bld) [#/Vol] 0.2 10*3/uL Normal 0.0-0.2 The [facility] Comment on above: Order Comment: No: D o not add to previous draw Performed By: #### 8 [id number] #### [facility] [address] [place] [address], [facility] Basophils/100 WBC (Bld) 0.7 % Normal 0.0-1.0 The [facility] Comment on above: Order Comment: No: D o not add to previous draw Performed By: #### 8 [id number] #### [facility] [address] [place] [address], [facility] Eosinophils (Bld) [#/Vol] 0.0 10*3/uL Normal 0.0-0.5 The [facility] Comment on above: Order Comment: No: D o not add to previous draw Performed By: #### 8 [id number] #### [facility] [address] [place] [address], [facility] Eosinophils/100 WBC (Bld) 0.1 % Normal 0.0-6.0 The [facility] Comment on above: Order Comment: No: D o not add to previous draw Performed By: #### 8 [id number] #### [facility] [address] [place] [address], [facility] Erythrocyte distribution width (RBC) [Ratio] 20.2 % High 11.5-15.0 The [facility] Comment on above: Order Comment: No: D o not add to previous draw Performed By: #### 8 [id number] #### [facility] [address] [place] [id number], [facility] Hematocrit (Bld) [Volume fraction] 28.0 % Low 36.0-45.0 The [facility] Comment on above: Order Comment: No: D o not add to previous draw Performed By: #### 8 [id number] #### [facility] [address] [place] [id number], [facility] Hemoglobin (Bld) [Mass/Vol] 8.8 g/dL Low 12.0-15.0 The [facility] Comment on above: Order Comment: No: D o not add to previous draw Performed By: #### 8 [id number] #### [facility] [address] [place] [address], [facility] IMMATURE GRANS 3.0 % High 0.0-1.0 The [facility] Comment on above: Order Comment: No: D o not add to previous draw Performed By: #### 8 [id number] #### [facility] [address] [place] [address], [facility] Lymphocytes (Bld) [#/Vol] 1.1 10*3/uL Low 1.2-4.0 The [facility] Comment on above: Order Comment: No: D o not add to previous draw Performed By: #### 8 [id number] #### [facility] [address] [place] [id number], [facility] Lymphocytes/100 WBC (Bld) 5.1 % Low 20.0-45.0 The [facility] Comment on above: Order Comment: No: D o not add to previous draw Performed By: #### 8 [id number] #### [facility] [address] [place] [id number], [facility] MCH (RBC) [Entitic mass] 29.9 pg Normal 27.0-33.0 The [facility] Comment on above: Order Comment: No: D o not add to previous draw Performed By: #### 8 [id number] #### [facility] [address] [place] [id number], [facility] MCHC (RBC) [Mass/Vol] 31.4 g/dL Low 32.0-35.0 The [facility] Comment on above: Order Comment: No: D o not add to previous draw Performed By: #### 8 [id number] #### [facility] [address] [place] [id number], [facility] MCV (RBC) [Entitic vol] 95.2 fL Normal 82.0-98.0 The [facility] Comment on above: Order Comment: No: D o not add to previous draw Performed By: #### 8 [id number] #### [facility] [address] [facility] [place] [id number], [facility] Monocytes (Bld) [#/Vol] 0.4 10*3/uL Normal 0.1-1.0 The [facility] Comment on above: Order Comment: No: D o not add to previous draw Performed By: #### 8 [id number] #### [facility] [address] [facility] [place] [address], [facility] MONOS 2.0 % Low 5.0-12.0 The [facility] Comment on above: Order Comment: No: D o not add to previous draw Performed By: #### 8 [id number] #### [facility] [address] [facility] [place] [address], [facility] Neutrophils/100 WBC (Bld) 89.1 % High 40.0-72.0 The [facility] Comment on above: Order Comment: No: D o not add to previous draw Performed By: #### 8 [id number] #### [facility] [address] [place] [address], [facility] Nucleated RBC/100 WBC (Bld) [Ratio] 0 % Normal 0-0 The [facility] Comment on above: Order Comment: No: D o not add to previous draw Performed By: #### 8 [id number] #### [facility] [address] [place] [address], [facility] PLAT CNT 303 10*3/uL Normal 150-400 The [facility] Comment on above: Order Comment: No: D o not add to previous draw Performed By: #### 8 [id number] #### [facility] [address] [place] [address], [facility] POIK Slight Normal The [facility] Comment on above: Order Comment: No: D o not add to previous draw Performed By: #### 8 [id number] #### [facility] [address] [place] [address], [facility] POLY Slight Normal The [facility] Comment on above: Order Comment: No: D o not add to previous draw Performed By: #### 8 [id number] #### [facility] [address] [place] [id number], [facility] RBC (Bld) [#/Vol] 2.94 10*6/uL Low 3.80-5.00 The [facility] Comment on above: Order Comment: No: D o not add to previous draw Performed By: #### 8 [id number] #### [facility] [address] [place] [address], [place] WBC (Bld) [#/Vol] 22.35 10*3/uL High 4.00-10.60 The [facility] Comment on above: Order Comment: No: D o not add to previous draw Performed By: #### 8 [id number] #### [facility] [address] [place] [address], [facility] COMP METABOLIC PANELon 04-04 Albumin [Mass/Vol] 2.4 g/dL Low 3.5-5.7 The [facility] Comment on above: Order Comment: No: D o not add to previous draw Performed By: #### 8 [id number] #### [facility] [address] [place] [address], [place] ALKALINE PHOSPH 92 IU/L Normal 34-104 The [facility] Comment on above: Order Comment: No: D o not add to previous draw Performed By: #### 8 [id number] #### [facility] [address] [place] [address], [place] ALT [Catalytic activity/Vol] 12 U/L Normal 7-52 The [facility] Comment on above: Order Comment: No: D o not add to previous draw Performed By: #### 8 [id number] #### [facility] [address] [place] [address], [place] AST [Catalytic activity/Vol] 10 U/L Low 13-39 The [facility] Comment on above: Order Comment: No: D o not add to previous draw Performed By: #### 8 [id number] #### [facility] [address] [place] [address], [place] Bilirubin [Mass/Vol] 1.0 mg/dL Normal 0.3-1.0 The [facility] Comment on above: Order Comment: No: D o not add to previous draw Performed By: #### 8 [id number] #### [facility] [address] [place] [address], [place] Calcium [Mass/Vol] 7.7 mg/dL Low 8.6-10.3 The [facility] Comment on above: Order Comment: No: D o not add to previous draw Performed By: #### 8 [id number] #### [facility] [address] [place] [address], [place] Chloride [Moles/Vol] 110 mmol/L High 98-107 The [facility] Comment on above: Order Comment: No: D o not add to previous draw Performed By: #### 8 [id number] #### [facility] [address] [place] [address], [place] CO2 [Moles/Vol] 24 mmol/L Normal 21-31 [facility] Comment on above: Order Comment: No: D o not add to previous draw Performed By: #### 8 [id number] #### [facility] [address] [place] [address], [place] Creatinine [Mass/Vol] 1.18 mg/dL Normal 0.60-1.20 The [facility] Comment on above: Order Comment: No: D o not add to previous draw Performed By: #### 8 [id number] #### [facility] [address] [place] [address], [facility] eGFR- 53 ml/min/1.73sq m Abnormal >60 The [facility] Comment on above: Order Comment: No: D o not add to previous draw Result Comment: Calc ulation may not be valid for patients over 70 years Performed By: #### 8 [id number] #### [facility] [address] [place] [address], [place] eGFR- non- 44 ml/min/1.73sq m Abnormal >60 The [facility] Comment on above: Order Comment: No: D o not add to previous draw Result Comment: Calc ulation may not be valid for patients over 70 years Performed By: #### 8 [id number] #### [facility] [address] [place] [address], [place] Glucose [Mass/Vol] 90 mg/dL Normal 70-100 [facility] Comment on above: Order Comment: No: D o not add to previous draw Performed By: #### 8 [id number] #### [facility] [address] [place] [address], [place] Potassium [Moles/Vol] 4.3 mmol/L Normal 3.5-5.1 The [facility] Comment on above: Order Comment: No: D o not add to previous draw Performed By: #### 8 [id number] #### [facility] [address] [place] [address], [facility] Protein [Mass/Vol] 4.8 g/dL Low 6.0-8.3 The [facility] Comment on above: Order Comment: No: D o not add to previous draw Performed By: #### 8 [id number] #### [facility] [address] [place] [address], [place] Sodium [Moles/Vol] 140 mmol/L Normal 136-145 The [facility] Comment on above: Order Comment: No: D o not add to previous draw Performed By: #### 8 [id number] #### [facility] [address] [place] [address], [place] Urea nitrogen [Mass/Vol] 37 mg/dL High 7-25 The [facility] Comment on above: Order Comment: No: D o not add to previous draw Performed By: #### 8 [id number] #### [facility] [address] [place] [address], [facility] Endoscopy Reporton 2 Endoscopy Report MR#: [id number] [facility] Pt. Name: María Elena Tafoya Surgery Date: 04/03/2022 Room #: [facility] [id number] Date of : 1940 PROCEDURE NOTE ATTENDING: [...] Olivo M.D. Date Trans: 04/04/2022 04:28 Kate/erik [id number] cc: Bennie Albright M.D. [address], [place] [id number] Normal The [facility] HEMOGLOBINon 04-04-2022 Hemoglobin (Bld) [Mass/Vol] 9.4 g/dL Low 12.0-15.0 The [facility] Comment on above: Order Comment: No: D o not add to previous draw Performed By: #### 8 [id number] #### [facility] [address] Hemoglobin (Bld) [Mass/Vol] 9.5 g/dL Low 12.0-15.0 The [facility] Comment on above: Order Comment: No: D o not add to previous draw Performed By: #### 5 [id number] #### [facility] [address] [place] [address], [facility] Hemoglobin (Bld) [Mass/Vol] 8.9 g/dL Low 12.0-15.0 The [facility] Comment on above: Order Comment: No: D o not add to previous draw Performed By: #### 8 [id number] #### [facility] [address] [place] [address], [facility] MAGNESIUM BLOODon 04-04-2022 Magnesium [Mass/Vol] 1.6 mg/dL Low 1.9-2.7 The [facility] Comment on above: Order Comment: No: D o not add to previous draw Performed By: #### 8 [id number] #### [facility] [address] [place] [address], [facility] PHOSPHORUS BLOODon Phosphate [Mass/Vol] 3.8 mg/dL Normal 2.5-5.0 The [facility] Comment on above: Order Comment: No: D o not add to previous draw Performed By: #### 8 [id number] #### [facility] [address] [place] [address], [place] POC GLUCOSE LABon 04-04-2022 Glucose [Mass/Vol] 123 mg/dL High 70-100 [facility] Comment on above: Performed By: #### 5 [id number] #### [facility] [address] [place] [address], [place] Glucose [Mass/Vol] 152 mg/dL High 70-100 The [facility] Comment on above: Performed By: #### 8 [id number] ####[facility] [place] [address], [place] Glucose [Mass/Vol] 111 mg/dL High 70-100 The [facility] Comment on above: Performed By: #### 8 [id number] #### [facility] [address] [place] [address], [place] Glucose [Mass/Vol] 109 mg/dL High 70-100 The [facility] Comment on above: Performed By: #### 8 [id number] #### [facility] [address] [place] [address], [place] Glucose [Mass/Vol] 94 mg/dL Normal 70-100 The [facility] Comment on above: Performed By: #### 8 [id number] ####[facility] [place] [address], [place] PROTHROMBIN TIMEon INR Coag (PPP) [Relative time] 1.18 {INR} High 0.91-1.16 The [facility] Comment on above: Order Comment: No: D [...] 1995;[id number]. Performed By: #### 8 [id number] #### [address] PT Coag (PPP) [Time] 14.9 s High 12.3-14.8 [facility] Comment on above: Order Comment: No: D o not add to previous draw Result Comment: ALL RESULTS MUST BE INTERPRETED WITH RESPECT TO BLOOD DRAWING ARTIFACT OR DILUTION ERROR OF ANTICOAGULANT AT THE TIME OF SAMPLING. Performed By: #### 8 [id number] #### [address] UFH HEPARIN ASSAYon 04-04-20 UNFRACTIONATED HEPARIN 0.11 IU/mL Critically low 0.30-0.70 The [facility] Comment on above: Result Comment: RESU LTS CHECKED AND CALLED. ACCURATELY READ BACK BY CHAZ LAWLER RN @ [phone] Rivaroxaban and Apixaban will interfere with the anti Xa assay used to monitor UFH and LMWH. Performed By: #### 8 [id number] #### [address] US GALLBLADDERon 04-04-2022 US GALLBLADDER [facility] Department of Radiology [address] [place] [id number] ======== Patient Name: MARÍA ELENA TAFOYA : 1940 Sex: F Age: Race: NA Pt. Location: [id number] Patient Status: I Ordered Date: 04/03/2022 8:05:00 [...] calculi. Electronically signed: Brooke Verduzco. Transcribed by: [email or web address], User Resident: Electronically Signed by: BROOKE VERDUZCO @ 04/04/2022 07:46 AM Normal The [facility] Comment on above: Order Comment: Stone s VENOUS BLOOD GASon BASE EXCESS 2 mmol/L Normal The [facility] Comment on above: Performed By: #### 8 [id number] #### [facility] [address] [place] [address], [facility] HCO3 (Bld) [Moles/Vol] 27 mmol/L Normal [facility] Comment on above: Performed By: #### 8 [id number] #### [facility] [address] [place] [address], [facility] Oxygen (Bld) [Partial pressure] 72 mm[Hg] Critically high 35-45 [facility] Comment on above: Performed By: #### 8 [id number] #### [facility] [address] [place] [address], [facility] Oxygen saturation in Blood 93.8 % High 65.0-75.0 [facility] Comment on above: Performed By: #### 8 [id number] #### [facility] [address] [place] [address], [facility] PCO2 42 mmHg Normal [facility] Comment on above: Performed By: #### 8 [id number] #### [facility] [address] [place] [address], [facility] pH (Bld) 7.41 [pH] Normal 7.31-7.41 [facility] Comment on above: Performed By: #### 8 [id number] #### [facility] [address] [place] [address], [facility] APTTon 04-03-2022 aPTT Coag (Bld) [Time] 32.6 s Normal 25.0-35.0 [facility] Comment on above: Order Comment: Yes: Add [...] Performed By: #### 8 [id number] #### [facility] [address] [place] [address], [facility] ARTERIAL BLOOD GAS WITH ICAo n 04-03-2022 BASE EXCESS 2 mmol/L Normal -2-3 [facility] Comment on above: Performed By: #### 8 [id number] #### [facility] [address] [place] [address], [facility] DELIVERY SYSTEMS NC Normal The [facility] Comment on above: Performed By: #### 8 [id number] #### [facility] [address] [place] [address], [facility] HCO3 (Bld) [Moles/Vol] 25 mmol/L Normal 21-28 The [facility] Comment on above: Performed By: #### 8 [id number] #### [facility] [address] [place] [address], [facility] IONIZED CALCIUM 1.24 mmol/L Normal 1.13-1.[address] [facility] Comment on above: Performed By: #### 8 [id number] #### [facility] [address] [place] [address], [facility] LPM 4.0 LPM Normal The [facility] Comment on above: Performed By: #### 8 [id number] #### [facility] [address] [place] [address], [facility] Oxygen (Bld) [Partial pressure] 76 mm[Hg] Low 83-108 [facility] Comment on above: Performed By: #### 8 [id number] #### [facility] [address] [place] [address], [facility] Oxygen saturation in Blood 94.0 % Normal 94.0-97.0 The [facility] Comment on above: Performed By: #### 8 [id number] #### [facility] [address] [place] [address], [facility] PCO2 34 mmHg Low 35-45 [facility] Comment on above: Performed By: #### 8 [id number] #### [facility] [address] [place] [address], [facility] pH (Bld) 7.48 [pH] High 7.35-7.45 The [facility] Comment on above: Performed By: #### 8 [id number] #### [facility] [address] [place] [address], [facility] BASIC METABOLIC PANELon 05-1 Calcium [Mass/Vol] 8.5 mg/dL Low 8.6-10.3 [facility] Comment on above: Order Comment: No: D o not add to previous draw Performed By: #### 8 [id number] #### [facility] [address] [place] [address], [facility] Chloride [Moles/Vol] 108 mmol/L High 98-107 The [facility] Comment on above: Order Comment: No: D o not add to previous draw Performed By: #### 8 [id number] #### [facility] [address] [place] [address], [facility] CO2 [Moles/Vol] 25 mmol/L Normal 21-31 [facility] Comment on above: Order Comment: No: D o not add to previous draw Performed By: #### 8 [id number] #### [facility] [address] [place] [id number], [facility] Creatinine [Mass/Vol] 0.96 mg/dL Normal 0.60-1.20 The [facility] Comment on above: Order Comment: No: D o not add to previous draw Performed By: #### 8 [id number] #### [facility] [address] [place] [address], [facility] eGFR- non- 56 ml/min/1.73sq m Abnormal >60 The [facility] Comment on above: Order Comment: No: D o not add to previous draw Result Comment: Calc ulation may not be valid for patients over 70 years Performed By: #### 8 [id number] #### [facility] [address] [place] [address], [place] GFR/1.73 sq M.predicted among blacks MDRD (S/P/Bld) [Vol rate/Area] mL/min/{1.73_m2} Normal >60 The [facility] Comment on above: Order Comment: No: D o not add to previous draw Result Comment: Calc ulation may not be valid for patients over 70 years Performed By: #### 8 [id number] #### [facility] [address] [place] [address], [place] Glucose [Mass/Vol] 122 mg/dL High 70-100 [facility] Comment on above: Order Comment: No: D o not add to previous draw Performed By: #### 8 [id number] #### [facility] [address] [place] [address], [place] Potassium [Moles/Vol] 5.5 mmol/L High 3.5-5.1 The [facility] Comment on above: Order Comment: No: D o not add to previous draw Performed By: #### 8 [id number] #### [facility] [address] [place] [address], [place] Sodium [Moles/Vol] 137 mmol/L Normal 136-145 [facility] Comment on above: Order Comment: No: D o not add to previous draw Performed By: #### 8 [id number] #### [facility] [address] [place] [address], [place] Urea nitrogen [Mass/Vol] 30 mg/dL High 7-25 The [facility] Comment on above: Order Comment: No: D o not add to previous draw Performed By: #### 8 [id number] #### [facility] [address] [place] [address], [place] BLOOD STOOL GUAIACon 022 BLD STOOL GUAIAC Positive Abnormal NEGATIVE The [facility] Comment on above: Order Comment: No: D o not add to previous draw Performed By: #### 2 2706 #### [facility] [address] [place] [address], [facility] CALCIUM IONIZED CBGLon 04-03 IONIZED CALCIUM 1.18 mmol/L Normal 1.12-1.[address] [facility] Comment on above: Performed By: #### 8 [id number] #### [facility] [address] [facility] [address] CBC COMPLETE BLOOD COUNTon 0 04-03-2022 Erythrocyte distribution width (RBC) [Ratio] 17.9 % High 11.5-15.0 The [facility] Comment on above: Order Comment: No: D o not add to previous draw Performed By: #### 5 [id number] #### [facility] [address] [facility]. [address] Hematocrit (Bld) [Volume fraction] 34.4 % Low 36.0-45.0 The [facility] Comment on above: Order Comment: No: D o not add to previous draw Performed By: #### 5 [id number] #### [facility] [address] [facility] [place] [address], [facility] Hemoglobin (Bld) [Mass/Vol] 10.6 g/dL Low 12.0-15.0 The [facility] Comment on above: Order Comment: No: D o not add to previous draw Performed By: #### 5 [id number] #### [facility] [address] [facility] [place] [address], [facility] MCH (RBC) [Entitic mass] 30.3 pg Normal 27.0-33.0 The [facility] Comment on above: Order Comment: No: D o not add to previous draw Performed By: #### 5 [id number] #### [facility] [address] [place] [address], [facility] MCHC (RBC) [Mass/Vol] 30.8 g/dL Low 32.0-35.0 The [facility] Comment on above: Order Comment: No: D o not add to previous draw Performed By: #### 5 [id number] #### [facility] [address] [place] [address], [facility] MCV (RBC) [Entitic vol] 98.3 fL High 82.0-98.0 The [facility] Comment on above: Order Comment: No: D o not add to previous draw Performed By: #### 5 [id number] #### [facility] [address] [place] [id number], [facility] Nucleated RBC/100 WBC (Bld) [Ratio] 0 % Normal 0-0 The [facility] Comment on above: Order Comment: No: D o not add to previous draw Performed By: #### 5 [id number] #### [facility] [address] [place] [address], [place] PLAT CNT 396 10*3/uL Normal 150-400 [facility] Comment on above: Order Comment: No: D o not add to previous draw Performed By: #### 5 [id number] #### [facility] [address] [place] [address], [facility] RBC (Bld) [#/Vol] 3.50 10*6/uL Low 3.80-5.00 [facility] Comment on above: Order Comment: No: D o not add to previous draw Performed By: #### 5 [id number] #### [facility] [address] [place] [address], [place] WBC (Bld) [#/Vol] 34.46 10*3/uL High 4.00-10.60 The [facility] Comment on above: Order Comment: No: D o not add to previous draw Performed By: #### 5 [id number] #### [facility] [address] [place] [address], [facility] CT BRAIN WO CONTRASTon 04-03 CT BRAIN WO CONTRAST [facility] Department of Radiology [address] [place] [id number] ======== Patient Name: MARÍA ELENA TAFOYA : 1940 Sex: F Age: Race: NA Pt. Location: [place] [address] Patient Status: I Ordered Date: 04/03/2022 8:30:00 [...] MRLydia Electronically signed: Darrel Gordon. Transcribed by: [email or web address], User Resident: Electronically Signed by: DARREL Yesy BERNARDO @ 04/03/2022 09:21 PM Normal The [facility] Comment on above: Order Comment: Bleed , altereed mental status ERCPon 04-03-2022 ERCP [facility] Department of Radiology [address] [place] [id number] ======== Patient Name: MARÍA ELENA TAFOYA : 1940 Sex: F Age: Race: NA Pt. Location: [id number] Patient Status: I Ordered Date: 04/03/2022 8:50:00 [...] details. Electronically signed: Brooke Verduzco. Transcribed by: [email or web address], User Resident: Electronically Signed by: BROOKE VERDUZCO @ 04/03/2022 12:52 PM Normal The [facility] Comment on above: Order Comment: Check Stent Position HEMATOCRITon 04-03-2022 Hematocrit (Bld) [Volume fraction] 27.5 % Low 36.0-45.0 The [facility] Comment on above: Order Comment: No: D o not add to previous draw Performed By: #### 8 [id number] #### [facility] [address] Hematocrit (Bld) [Volume fraction] 31.1 % Low 36.0-45.0 The [facility] Comment on above: Order Comment: No: D o not add to previous draw Performed By: #### 8 [id number] #### [facility] [address] [place] [address], [facility] Hematocrit (Bld) [Volume fraction] 32.2 % Low 36.0-45.0 The [facility] Comment on above: Order Comment: No: D o not add to previous draw Performed By: #### 8 [id number] #### [facility] [address] [place] [id number], [facility] HEMOGLOBINon 04-03-2022 Hemoglobin (Bld) [Mass/Vol] 8.8 g/dL Low 12.0-15.0 The [facility] Comment on above: Order Comment: No: D o not add to previous draw Performed By: #### 8 [id number] #### [facility] [address] [place] [address], [facility] Hemoglobin (Bld) [Mass/Vol] 9.8 g/dL Low 12.0-15.0 [facility] Comment on above: Order Comment: No: D o not add to previous draw Performed By: #### 8 [id number] #### [facility] [address] [place] [address], [facility] Hemoglobin (Bld) [Mass/Vol] 9.9 g/dL Low 12.0-15.0 The [facility] Comment on above: Order Comment: No: D o not add to previous draw Performed By: #### 8 [id number] #### [facility] [address] [place] [id number], [facility] LIPASE BLOODon 04-03-2022 LIPASE 149 Units/L High 11-82 [facility] Comment on above: Order Comment: No: D o not add to previous draw Performed By: #### 8 [id number] #### [facility] [address] [place] [address], [facility] LIVER BATTERYon 04-03-2022 Albumin [Mass/Vol] 2.8 g/dL Low 3.5-5.7 [facility] Comment on above: Order Comment: No: D o not add to previous draw Performed By: #### 8 [id number] #### [facility] [address] [place] [address], [facility] ALKALINE PHOSPH 137 IU/L High 34-104 [facility] Comment on above: Order Comment: No: D o not add to previous draw Performed By: #### 8 [id number] #### [facility] [address] [place] [address], [place] ALT [Catalytic activity/Vol] 18 U/L Normal 7-52 [facility] Comment on above: Order Comment: No: D o not add to previous draw Performed By: #### 8 [id number] #### [facility] [address] [place] [address], [facility] AST [Catalytic activity/Vol] 8 U/L Low 13-39 [facility] Comment on above: Order Comment: No: D o not add to previous draw Performed By: #### 8 [id number] #### [facility] [address] [place] [address], [place] Bilirubin [Mass/Vol] 1.5 mg/dL High 0.3-1.0 The [facility] Comment on above: Order Comment: No: D o not add to previous draw Performed By: #### 8 [id number] #### [facility] [address] [place] [address], [place] Bilirubin.direct [Mass/Vol] 0.6 mg/dL High 0.0-0.2 [facility] Comment on above: Order Comment: No: D o not add to previous draw Performed By: #### 8 [id number] #### [facility] [address] [place] [address], [place] Protein [Mass/Vol] 5.8 g/dL Low 6.0-8.3 The [facility] Comment on above: Order Comment: No: D o not add to previous draw Performed By: #### 8 [id number] #### [facility] [address] [place] [address], [place] MAGNESIUM BLOODon 04-03-2022 Magnesium [Mass/Vol] 2.0 mg/dL Normal 1.9-2.7 The [facility] Comment on above: Order Comment: No: D o not add to previous draw Performed By: #### 8 [id number] #### [facility] [address] [place] [address], [place] PHOSPHORUS BLOODon Phosphate [Mass/Vol] 4.2 mg/dL Normal 2.5-5.0 The [facility] Comment on above: Order Comment: No: D o not add to previous draw Performed By: #### 8 [id number] #### [facility] [address] [place] [address], [place] POC GLUCOSE LABon 04-03-2022 Glucose [Mass/Vol] 121 mg/dL High 70-100 The [facility] Comment on above: Performed By: #### 8 [id number] #### [facility] [address] [place] [address], [place] Glucose [Mass/Vol] 147 mg/dL High 70-100 The [facility] Comment on above: Performed By: #### 8 [id number] #### [facility] [address] [place] [address], [place] Glucose [Mass/Vol] 133 mg/dL High 70-100 [facility] Comment on above: Performed By: #### 3 0313 #### [facility] [address] [place] [address], [facility] PROTHROMBIN TIMEon INR Coag (PPP) [Relative time] 1.23 {INR} High 0.91-1.16 The [facility] Comment on above: Order Comment: Yes: Add [...] Performed By: #### 8 [id number] #### [facility] [address] [place] [address], [facility] PT Coag (PPP) [Time] 15.5 s High 12.3-14.8 [facility] Comment on above: Order Comment: Yes: Add to Previous draw if ablePt is in [place] Result Comment: ALL RESULTS MUST BE INTERPRETED WITH RESPECT TO BLOOD DRAWING ARTIFACT OR DILUTION ERROR OF ANTICOAGULANT AT THE TIME OF SAMPLING. Performed By: #### 8 [id number] #### [facility] [address] [place] [address], [facility] RBC'S 1 UNITon 04-03-2022 CROSSMATCH INTERP 1 COMP Normal [facility] Comment on above: Performed By: #### 8 [id number] #### [facility] [address] [facility] [place] [address], [facility] PRODUCT CODE 1 E0336 Normal [facility] Comment on above: Performed By: #### 8 [id number] #### [facility] [address] [facility] [place] [address], [facility] PRODUCT STATUS [address] [facility] Comment on above: Result Comment: Resu lt changed by IF on 04/07/2022 06:43. The previous value was XM. Performed By: #### 8 [id number] #### [facility] [address] [facility] [place] [address], [facility] UNIT ABO 1 A Normal [facility] Comment on above: Performed By: #### 8 [id number] #### [facility] [address] [facility] [place] [place] [address], [facility] UNIT ID 1 [id number] Normal The [facility] Comment on above: Performed By: #### 8 [id number] #### [facility] [address] [place] [address], [facility] UNIT RH 1 Negative Normal The [facility] Comment on above: Performed By: #### 8 [id number] #### [facility] [address] [place] [address], [facility] RBC'S 2 UNITSon 04-03-2022 CROSSMATCH INTERP 1 COMP Normal [facility] Comment on above: Performed By: #### 8 [id number] #### [facility] [address] [place] [address], [facility] CROSSMATCH INTERP 2 COMP Normal [facility] Comment on above: Performed By: #### 8 [id number] #### [facility] [address] [place] [address], [facility] PRODUCT CODE 1 E0686 Normal The [facility] Comment on above: Performed By: #### 8 [id number] #### [facility] [address] [place] [address], [facility] PRODUCT CODE 2 E0336 Normal The [facility] Comment on above: Performed By: #### 8 [id number] #### [facility] [address] [place] [address], [facility] PRODUCT STATUS [address] [facility] Comment on above: Result Comment: Resu lt changed by IF on 04/03/2022 10:21. The previous value was XM. Result changed by IF on 04/04/2022 00:30. The previous value was IS. Performed By: #### 8 [id number] #### [facility] [address] [place] [address], [facility] PRODUCT STATUS [address] [facility] Comment on above: Result Comment: Resu lt changed by IF on 04/03/2022 10:21. The previous value was XM. Result changed by IF on 04/03/2022 11:27. The previous value was IS. Result changed by IF on 04/03/2022 12:23. The previous value was XM. Result changed by IF on 04/04/2022 00:30. The previous value was IS. Performed By: #### 8 [id number] #### [facility] [address] [place] [address], [facility] UNIT ABO 1 A Normal The [facility] Comment on above: Performed By: #### 8 [id number] #### [facility] [address] [place] [address], [place] UNIT ABO 2 A Normal The [facility] Comment on above: Performed By: #### 8 [id number] #### [facility] [address] [place] [address], [facility] UNIT ID 1 [id number] Normal The [facility] Comment on above: Performed By: #### 8 [id number] #### [facility] [address] [place] [address], [facility] UNIT ID 2 [id number] Normal [facility] Comment on above: Performed By: #### 8 [id number] #### [facility] [address] [place] [address], [facility] UNIT RH 1 Negative Normal The [facility] Comment on above: Performed By: #### 8 [id number] #### [facility] [address] [place] [address], [place] UNIT RH 2 Negative Normal The [facility] Comment on above: Performed By: #### 8 [id number] #### [facility] [address] [place] [address], [facility] TYPE AND SCREENon 04-03-2022 ABO INTERPRETATION AB Normal [facility] Comment on above: Performed By: #### 8 [id number] #### [facility] [address] [place] [address], [place] RH INTERPRETATION Negative Normal The [facility] Comment on above: Performed By: #### 8 [id number] #### [facility] [address] [place] [address], [place] UFH HEPARIN ASSAYon 04-03-20 22 UNFRACTIONATED HEPARIN 0.28 IU/mL Low 0.30-0.70 The [facility] Comment on above: Result Comment: Kristy roxaban and Apixaban will interfere with the anti Xa assay used to monitor UFH and LMWH. Performed By: #### 8 [id number] #### [facility] [address] [place] [address], [facility] VENOUS BLOOD GAS W/COOXon BASE EXCESS -3 mmol/L Normal The [facility] Comment on above: Order Comment: RESUL TS CHECKED AND CALLED. ACCURATELY READ BACK BY AYANNA PHIPPS Performed By: #### 8 [id number] #### [facility] [address] [facility] [place] [address], [facility] COHB 2 % Normal The [facility] Comment on above: Order Comment: RESUL TS CHECKED AND CALLED. ACCURATELY READ BACK BY AYANNA PHIPPS Performed By: #### 8 [id number] #### [facility] [address] [place] [address], [facility] HCO3 (Bld) [Moles/Vol] 25 mmol/L Normal The [facility] Comment on above: Order Comment: RESUL TS CHECKED AND CALLED. ACCURATELY READ BACK BY AYANNA PHIPPS Performed By: #### 8 [id number] #### [facility] [address] [place] [address], [facility] METHB 0.3 % Normal The [facility] Comment on above: Order Comment: RESUL TS CHECKED AND CALLED. ACCURATELY READ BACK BY AYANNA PHIPPS Performed By: #### 8 [id number] #### [facility] [address] [place] [address], [facility] Oxygen (Bld) [Partial pressure] 31 mm[Hg] Low 35-45 The [facility] Comment on above: Order Comment: RESUL TS CHECKED AND CALLED. ACCURATELY READ BACK BY AYANNA PHIPPS Performed By: #### 8 [id number] #### [facility] [address] [place] [address], [facility] Oxygen saturation in Blood 38.0 % Low 65.0-75.0 [facility] Comment on above: Order Comment: RESUL TS CHECKED AND CALLED. ACCURATELY READ BACK BY AYANNA PHIPPS Performed By: #### 8 [id number] #### [facility] [address] [facility] [place] [address], [facility] PCO2 53 mmHg Normal [facility] Comment on above: Order Comment: RESUL TS CHECKED AND CALLED. ACCURATELY READ BACK BY AYANNA PHIPPS Performed By: #### 8 [id number] #### [facility] [address] [facility] [address] pH (Bld) 7.28 [pH] Low 7.31-7.41 The [facility] Comment on above: Order Comment: RESUL TS CHECKED AND CALLED. ACCURATELY READ BACK BY AYANNA PHIPPS Performed By: #### 8 [id number] #### [facility] [address] [facility]. [address] THB 9.2 g/dL Normal The [facility] Comment on above: Order Comment: RESUL TS CHECKED AND CALLED. ACCURATELY READ BACK BY AYANNA PHIPPS Performed By: #### 8 [id number] #### [facility] [address] BASIC METABOLIC PANELon 05- Calcium [Mass/Vol] 8.5 mg/dL Low 8.6-10.3 The [facility] Comment on above: Order Comment: The A ptima SARS-CoV-2 assay is a nucleic acid amplification test intended for the qualitative detection of RNA from SARS-CoV-2 isolated and purified from nasopharyngeal (RESEARCH SPECIALIST),oropharyngeal (OP), nasal swab, sputum, and bronchoalveolar lavage (BAL) specimens from patients with signs and symptoms of infection who are suspected of COVID-19. Results are for the identification of SARS-CoV-2 RNA. The SARS-CoV-2 RNA is generally detectable during the acute phase of infection. The Aptima SARS-CoV-2 Assay on the [employer] system is intended for use by laboratory personnel specifically instructed and trained in the operation of the [employer] system. The Aptima SARS-CoV-2 assay is [...] Performed By: #### 3 1792 #### [facility] [address] [place] [address], [facility] Chloride [Moles/Vol] 104 mmol/L Normal 98-107 The [facility] Comment on above: Order Comment: The A ptima SARS-CoV-2 assay is a nucleic acid amplification test intended for the qualitative detection of RNA from SARS-CoV-2 isolated and purified from nasopharyngeal (RESEARCH SPECIALIST),oropharyngeal (OP), nasal swab, sputum, and bronchoalveolar lavage (BAL) specimens from patients with signs and symptoms of infection who are suspected of COVID-19. Results are for the identification of SARS-CoV-2 RNA. The SARS-CoV-2 RNA is generally detectable during the acute phase of infection. The Aptima SARS-CoV-2 Assay on the [employer] system is intended for use by laboratory personnel specifically instructed and trained in the operation of the [employer] system. The Aptima SARS-CoV-2 assay is [...] and epidemiological information. Performed By: #### 3 0762 #### [facility] [address] [place] [address], [place] CO2 [Moles/Vol] 23 mmol/L Normal 21-31 The [facility] Comment on above: Order Comment: The A ptima SARS-CoV-2 assay is a nucleic acid amplification test intended for the qualitative detection of RNA from SARS-CoV-2 isolated and purified from nasopharyngeal (RESEARCH SPECIALIST),oropharyngeal (OP), nasal swab, sputum, and bronchoalveolar lavage (BAL) specimens from patients with signs and symptoms of infection who are suspected of COVID-19. Results are for the identification of SARS-CoV-2 RNA. The SARS-CoV-2 RNA is generally detectable during the acute phase of infection. The Aptima SARS-CoV-2 Assay on the [employer] system is intended for use by laboratory personnel specifically instructed and trained in the operation of the [employer] system. The Aptima SARS-CoV-2 assay is [...] information. Performed By: #### 3 1792 #### [address] Creatinine [Mass/Vol] 1.00 mg/dL Normal 0.60-1.20 The [facility] Comment on above: Order Comment: The A ptima SARS-CoV-2 assay is a nucleic acid amplification test intended for the qualitative detection of RNA from SARS-CoV-2 isolated and purified from nasopharyngeal (RESEARCH SPECIALIST),oropharyngeal (OP), nasal swab, sputum, and bronchoalveolar lavage (BAL) specimens from patients with signs and symptoms of infection who are suspected of COVID-19. Results are for the identification of SARS-CoV-2 RNA. The SARS-CoV-2 RNA is generally detectable during the acute phase of infection. The Aptima SARS-CoV-2 Assay on the [employer] system is intended for use by laboratory personnel specifically instructed and trained in the operation of the [employer] system. The Aptima SARS-CoV-2 assay is [...] Performed By: #### 3 [id number] #### [facility] [address] [facility] [place], [place] [id number] [place] [address] eGFR- non- 53 ml/min/1.73sq m Abnormal >60 The [facility] Comment on above: Order Comment: The A ptima SARS-CoV-2 assay is a nucleic acid amplification test intended for the qualitative detection of RNA from SARS-CoV-2 isolated and purified from nasopharyngeal (RESEARCH SPECIALIST),oropharyngeal (OP), nasal swab, sputum, and bronchoalveolar lavage (BAL) specimens from patients with signs and symptoms of infection who are suspected of COVID-19. Results are for the identification of SARS-CoV-2 RNA. The SARS-CoV-2 RNA is generally detectable during the acute phase of infection. The Aptima SARS-CoV-2 Assay on the [employer] system is intended for use by laboratory personnel specifically instructed and trained in the operation of the [employer] system. The Aptima SARS-CoV-2 assay is [...] over 70 years Performed By: #### 3 5281 #### [facility] [address] GFR/1.73 sq M.predicted among blacks MDRD (S/P/Bld) [Vol rate/Area] mL/min/{1.73_m2} Normal >60 The [facility] Comment on above: Order Comment: The A ptima SARS-CoV-2 assay is a nucleic acid amplification test intended for the qualitative detection of RNA from SARS-CoV-2 isolated and purified from nasopharyngeal (RESEARCH SPECIALIST),oropharyngeal (OP), nasal swab, sputum, and bronchoalveolar lavage (BAL) specimens from patients with signs and symptoms of infection who are suspected of COVID-19. Results are for the identification of SARS-CoV-2 RNA. The SARS-CoV-2 RNA is generally detectable during the acute phase of infection. The Aptima SARS-CoV-2 Assay on the [employer] system is intended for use by laboratory personnel specifically instructed and trained in the operation of the [employer] system. The Aptima SARS-CoV-2 assay is [...] Performed By: #### 3 [id number] #### [facility] [address] [facility] Glucose [Mass/Vol] 87 mg/dL Normal 70-100 [facility] Comment on above: Order Comment: The A ptima SARS-CoV-2 assay is a nucleic acid amplification test intended for the qualitative detection of RNA from SARS-CoV-2 isolated and purified from nasopharyngeal (RESEARCH SPECIALIST),oropharyngeal (OP), nasal swab, sputum, and bronchoalveolar lavage (BAL) specimens from patients with signs and symptoms of infection who are suspected of COVID-19. Results are for the identification of SARS-CoV-2 RNA. The SARS-CoV-2 RNA is generally detectable during the acute phase of infection. The Aptima SARS-CoV-2 Assay on the [employer] system is intended for use by laboratory personnel specifically instructed and trained in the operation of the [employer] system. The Aptima SARS-CoV-2 assay is [...] Performed By: #### 3 [id number] #### [facility] [address] [facility] [place] [address], [facility] Potassium [Moles/Vol] 4.1 mmol/L Normal 3.5-5.1 [facility] Comment on above: Order Comment: The A ptima SARS-CoV-2 assay is a nucleic acid amplification test intended for the qualitative detection of RNA from SARS-CoV-2 isolated and purified from nasopharyngeal (RESEARCH SPECIALIST),oropharyngeal (OP), nasal swab, sputum, and bronchoalveolar lavage (BAL) specimens from patients with signs and symptoms of infection who are suspected of COVID-19. Results are for the identification of SARS-CoV-2 RNA. The SARS-CoV-2 RNA is generally detectable during the acute phase of infection. The Aptima SARS-CoV-2 Assay on the [employer] system is intended for use by laboratory personnel specifically instructed and trained in the operation of the [employer] system. The Aptima SARS-CoV-2 assay is [...] and epidemiological information. Performed By: #### 3 [id number] #### [facility] [address] [place] [address], [facility] Sodium [Moles/Vol] 135 mmol/L Low 136-145 [facility] Comment on above: Order Comment: The A ptima SARS-CoV-2 assay is a nucleic acid amplification test intended for the qualitative detection of RNA from SARS-CoV-2 isolated and purified from nasopharyngeal (RESEARCH SPECIALIST),oropharyngeal (OP), nasal swab, sputum, and bronchoalveolar lavage (BAL) specimens from patients with signs and symptoms of infection who are suspected of COVID-19. Results are for the identification of SARS-CoV-2 RNA. The SARS-CoV-2 RNA is generally detectable during the acute phase of infection. The Aptima SARS-CoV-2 Assay on the [employer] system is intended for use by laboratory personnel specifically instructed and trained in the operation of the [employer] system. The Aptima SARS-CoV-2 assay is [...] information. Performed By: #### 3 1792 #### [address] Urea nitrogen [Mass/Vol] 17 mg/dL Normal 7-25 The [facility] Comment on above: Order Comment: The A ptima SARS-CoV-2 assay is a nucleic acid amplification test intended for the qualitative detection of RNA from SARS-CoV-2 isolated and purified from nasopharyngeal (RESEARCH SPECIALIST),oropharyngeal (OP), nasal swab, sputum, and bronchoalveolar lavage (BAL) specimens from patients with signs and symptoms of infection who are suspected of COVID-19. Results are for the identification of SARS-CoV-2 RNA. The SARS-CoV-2 RNA is generally detectable during the acute phase of infection. The Aptima SARS-CoV-2 Assay on the [employer] system is intended for use by laboratory personnel specifically instructed and trained in the operation of the [employer] system. The Aptima SARS-CoV-2 assay is [...] Performed By: #### 3 [id number] #### [facility] [address] [place] [address], [facility] CALCIUM IONIZED CBGLon 04-02 IONIZED CALCIUM 1.15 mmol/L Normal 1.12-1.[address] [facility] Comment on above: Performed By: #### 8 [id number] #### [facility] [address] [place] [address], [facility] CBC W/DIFFon 04-02-2022 ABS IMM GRANS 0.5 10*3/uL High 0.0-0.2 The [facility] Comment on above: Order Comment: No: D o not add to previous draw Performed By: #### 8 [id number] #### [facility] [address] [facility] [place] [address], [facility] ABS NEUTROPHILS 27.8 10*3/uL High 1.6-7.[address] [facility] Comment on above: Order Comment: No: D o not add to previous draw Performed By: #### 8 [id number] #### [facility] [address] [place] [address], [facility] Basophils (Bld) [#/Vol] 0.2 10*3/uL Normal 0.0-0.2 The [facility] Comment on above: Order Comment: No: D o not add to previous draw Performed By: #### 8 [id number] #### [facility] [address] [place] [address], [facility] Basophils/100 WBC (Bld) 0.7 % Normal 0.0-1.0 The [facility] Comment on above: Order Comment: No: D o not add to previous draw Performed By: #### 8 [id number] #### [facility] [address] [place] [address], [facility] Eosinophils (Bld) [#/Vol] 0.0 10*3/uL Normal 0.0-0.5 The [facility] Comment on above: Order Comment: No: D o not add to previous draw Performed By: #### 8 [id number] #### [facility] [address] [place] [id number], [facility] Eosinophils/100 WBC (Bld) 0.1 % Normal 0.0-6.0 The [facility] Comment on above: Order Comment: No: D o not add to previous draw Performed By: #### 8 [id number] #### [facility] [address] [facility] [place] [address], [facility] Erythrocyte distribution width (RBC) [Ratio] 17.5 % High 11.5-15.0 The [facility] Comment on above: Order Comment: No: D o not add to previous draw Performed By: #### 8 [id number] #### [facility] [address] [place] [address], [facility] Hematocrit (Bld) [Volume fraction] 39.1 % Normal 36.0-45.0 The [facility] Comment on above: Order Comment: No: D o not add to previous draw Performed By: #### 8 [id number] #### [facility] [address] [facility] [place] [address], [facility] Hemoglobin (Bld) [Mass/Vol] 12.1 g/dL Normal 12.0-15.0 The [facility] Comment on above: Order Comment: No: D o not add to previous draw Performed By: #### 8 [id number] #### [facility] [address] [facility] [place] [id number], [facility] IMMATURE GRANS 1.8 % High 0.0-1.0 The [facility] Comment on above: Order Comment: No: D o not add to previous draw Performed By: #### 8 [id number] #### [facility] [address] [place] [address], [facility] Lymphocytes (Bld) [#/Vol] 1.1 10*3/uL Low 1.2-4.0 The [facility] Comment on above: Order Comment: No: D o not add to previous draw Performed By: #### 8 [id number] #### [facility] [address] [facility] [place] [address], [facility] Lymphocytes/100 WBC (Bld) 3.5 % Low 20.0-45.0 The [facility] Comment on above: Order Comment: No: D o not add to previous draw Performed By: #### 8 [id number] #### [facility] [address] [place] [address], [facility] MCH (RBC) [Entitic mass] 30.1 pg Normal 27.0-33.0 The [facility] Comment on above: Order Comment: No: D o not add to previous draw Performed By: #### 8 [id number] #### [facility] [address] [place] [address], [facility] MCHC (RBC) [Mass/Vol] 30.9 g/dL Low 32.0-35.0 The [facility] Comment on above: Order Comment: No: D o not add to previous draw Performed By: #### 8 [id number] #### [facility] [address] [place] [address], [facility] MCV (RBC) [Entitic vol] 97.3 fL Normal 82.0-98.0 The [facility] Comment on above: Order Comment: No: D o not add to previous draw Performed By: #### 8 [id number] #### [facility] [address] [place] [address], [facility] Monocytes (Bld) [#/Vol] 0.6 10*3/uL Normal 0.1-1.0 The [facility] Comment on above: Order Comment: No: D o not add to previous draw Performed By: #### 8 [id number] #### [facility] [address] [place] [address], [place] MONOS 1.8 % Low 5.0-12.0 The [facility] Comment on above: Order Comment: No: D o not add to previous draw Performed By: #### 8 [id number] #### [facility] [address] [place] [address], [place] Neutrophils/100 WBC (Bld) 92.1 % High 40.0-72.0 The [facility] Comment on above: Order Comment: No: D o not add to previous draw Performed By: #### 8 [id number] #### [facility] [address] [place] [address], [facility] Nucleated RBC/100 WBC (Bld) [Ratio] 0 % Normal 0-0 The [facility] Comment on above: Order Comment: No: D o not add to previous draw Performed By: #### 8 [id number] #### [facility] [address] [place] [address], [place] PLAT CNT 370 10*3/uL Normal 150-400 The [facility] Comment on above: Order Comment: No: D o not add to previous draw Performed By: #### 8 [id number] #### [facility] [address] [place] [address], [place] RBC (Bld) [#/Vol] 4.02 10*6/uL Normal 3.80-5.00 The [facility] Comment on above: Order Comment: No: D o not add to previous draw Performed By: #### 8 [id number] #### [facility] [address] [place] [address], [place] WBC (Bld) [#/Vol] 30.18 10*3/uL High 4.00-10.60 The [facility] Comment on above: Order Comment: No: D o not add to previous draw Performed By: #### 8 [id number] #### [facility] [address] [place] [address], [place] ERCPon 05-16-2022 ERCP [facility] Department of Radiology [address] [place] [address] ======== Patient Name: MARÍA ELENA TAFOYA : 1940 Sex: F Age: Race: NA Pt. Location: [id number] Patient Status: I Ordered Date: 04/02/2022 3:40:00 [...] details. Electronically signed: Brooke Verduzco. Transcribed by: [email or web address], User Resident: Electronically Signed by: BROOKE VERDUZCO @ 04/03/2022 09:48 AM Normal The [facility] Comment on above: Order Comment: Check Stent Position Endoscopy Reporton Endoscopy Report MR#: [id number] [facility] Pt. Name: María Elena Tafoya Surgery Date: 04/02/2022 Room #: [id number] Date of : 1940 PROCEDURE NOTE ATTENDING: Elizabeth Olivo M.D. PASTE MIXING SUPERVISOR: Felipe Gallo MD. PROCEDURE: ERCP with biliary [...] Gallo MD Date Trans: 04/02/2022 07:10 P/mmo [id number] cc: Bennie Albright M.D. [address] [facility] [id number] Normal The [facility] LIVER BATTERYon 04-02-2022 Albumin [Mass/Vol] 3.0 g/dL Low 3.5-5.7 [facility] Comment on above: Order Comment: The A ptima SARS-CoV-2 assay is a nucleic acid amplification test intended for the qualitative detection of RNA from SARS-CoV-2 isolated and purified from nasopharyngeal (RESEARCH SPECIALIST),oropharyngeal (OP), nasal swab, sputum, and bronchoalveolar lavage (BAL) specimens from patients with signs and symptoms of infection who are suspected of COVID-19. Results are for the identification of SARS-CoV-2 RNA. The SARS-CoV-2 RNA is generally detectable during the acute phase of infection. The Aptima SARS-CoV-2 Assay on the [employer] system is intended for use by laboratory personnel specifically instructed and trained in the operation of the [employer] system. The Aptima SARS-CoV-2 assay is [...] Performed By: #### 3 1792 #### [facility] [address] ALKALINE PHOSPH 174 IU/L High 34-104 [facility] Comment on above: Order Comment: The A ptima SARS-CoV-2 assay is a nucleic acid amplification test intended for the qualitative detection of RNA from SARS-CoV-2 isolated and purified from nasopharyngeal (RESEARCH SPECIALIST),oropharyngeal (OP), nasal swab, sputum, and bronchoalveolar lavage (BAL) specimens from patients with signs and symptoms of infection who are suspected of COVID-19. Results are for the identification of SARS-CoV-2 RNA. The SARS-CoV-2 RNA is generally detectable during the acute phase of infection. The Aptima SARS-CoV-2 Assay on the [employer] system is intended for use by laboratory personnel specifically instructed and trained in the operation of the [employer] system. The Aptima SARS-CoV-2 assay is [...] Performed By: #### 3 1792 #### [facility] [address] ALT [Catalytic activity/Vol] 21 U/L Normal 7-52 [facility] Comment on above: Order Comment: The A ptima SARS-CoV-2 assay is a nucleic acid amplification test intended for the qualitative detection of RNA from SARS-CoV-2 isolated and purified from nasopharyngeal (RESEARCH SPECIALIST),oropharyngeal (OP), nasal swab, sputum, and bronchoalveolar lavage (BAL) specimens from patients with signs and symptoms of infection who are suspected of COVID-19. Results are for the identification of SARS-CoV-2 RNA. The SARS-CoV-2 RNA is generally detectable during the acute phase of infection. The Aptima SARS-CoV-2 Assay on the [employer] system is intended for use by laboratory personnel specifically instructed and trained in the operation of the [employer] system. The Aptima SARS-CoV-2 assay is [...] Performed By: #### 3 1792 #### [facility] [address] AST [Catalytic activity/Vol] 9 U/L Low 13-39 The [facility] Comment on above: Order Comment: The A ptima SARS-CoV-2 assay is a nucleic acid amplification test intended for the qualitative detection of RNA from SARS-CoV-2 isolated and purified from nasopharyngeal (RESEARCH SPECIALIST),oropharyngeal (OP), nasal swab, sputum, and bronchoalveolar lavage (BAL) specimens from patients with signs and symptoms of infection who are suspected of COVID-19. Results are for the identification of SARS-CoV-2 RNA. The SARS-CoV-2 RNA is generally detectable during the acute phase of infection. The Aptima SARS-CoV-2 Assay on the [employer] Fusion system is intended for use by laboratory personnel specifically instructed and trained in the operation of the [employer] system. The Aptima SARS-CoV-2 assay is [...] and epidemiological information. Performed By: #### 3 [id number] #### [facility] [address] [facility] [place], [place] [id number] [place] [address] Bilirubin [Mass/Vol] 1.9 mg/dL High 0.3-1.0 The [facility] Comment on above: Order Comment: The A ptima SARS-CoV-2 assay is a nucleic acid amplification test intended for the qualitative detection of RNA from SARS-CoV-2 isolated and purified from nasopharyngeal (RESEARCH SPECIALIST),oropharyngeal (OP), nasal swab, sputum, and bronchoalveolar lavage (BAL) specimens from patients with signs and symptoms of infection who are suspected of COVID-19. Results are for the identification of SARS-CoV-2 RNA. The SARS-CoV-2 RNA is generally detectable during the acute phase of infection. The Aptima SARS-CoV-2 Assay on the [employer] system is intended for use by laboratory personnel specifically instructed and trained in the operation of the [employer] system. The Aptima SARS-CoV-2 assay is [...] Performed By: #### 3 1792 #### [facility] [address] Bilirubin.direct [Mass/Vol] 0.8 mg/dL High 0.0-0.2 The [facility] Comment on above: Order Comment: The A ptima SARS-CoV-2 assay is a nucleic acid amplification test intended for the qualitative detection of RNA from SARS-CoV-2 isolated and purified from nasopharyngeal (RESEARCH SPECIALIST),oropharyngeal (OP), nasal swab, sputum, and bronchoalveolar lavage (BAL) specimens from patients with signs and symptoms of infection who are suspected of COVID-19. Results are for the identification of SARS-CoV-2 RNA. The SARS-CoV-2 RNA is generally detectable during the acute phase of infection. The Aptima SARS-CoV-2 Assay on the [employer] and [employer] Fusion system is intended for use by laboratory personnel specifically instructed and trained in the operation of the [employer] and [employer] system. The Aptima SARS-CoV-2 assay is [...] Performed By: #### 3 1792 #### [facility] [address] Protein [Mass/Vol] 6.1 g/dL Normal 6.0-8.3 The [facility] Comment on above: Order Comment: The A ptima SARS-CoV-2 assay is a nucleic acid amplification test intended for the qualitative detection of RNA from SARS-CoV-2 isolated and purified from nasopharyngeal (RESEARCH SPECIALIST),oropharyngeal (OP), nasal swab, sputum, and bronchoalveolar lavage (BAL) specimens from patients with signs and symptoms of infection who are suspected of COVID-19. Results are for the identification of SARS-CoV-2 RNA. The SARS-CoV-2 RNA is generally detectable during the acute phase of infection. The Aptima SARS-CoV-2 Assay on the [employer] system is intended for use by laboratory personnel specifically instructed and trained in the operation of the [employer] and [employer] system. The Aptima SARS-CoV-2 assay is [...] Performed By: #### 3 1792 #### [facility] [address] [place] [address], [facility] MAGNESIUM BLOOD 04-02-2022 Magnesium [Mass/Vol] 1.3 mg/dL Low 1.9-2.7 The [facility] Comment on above: Order Comment: The A ptima SARS-CoV-2 assay is a nucleic acid amplification test intended for the qualitative detection of RNA from SARS-CoV-2 isolated and purified from nasopharyngeal (RESEARCH SPECIALIST),oropharyngeal (OP), nasal swab, sputum, and bronchoalveolar lavage (BAL) specimens from patients with signs and symptoms of infection who are suspected of COVID-19. Results are for the identification of SARS-CoV-2 RNA. The SARS-CoV-2 RNA is generally detectable during the acute phase of infection. The Aptima SARS-CoV-2 Assay on the [employer] system is intended for use by laboratory personnel specifically instructed and trained in the operation of the [employer] and [employer] system. The Aptima SARS-CoV-2 assay is [...] Performed By: #### 3 1792 #### [facility] [address] [place] [address], [facility] PHOSPHORUS BLOOD Phosphate [Mass/Vol] 2.9 mg/dL Normal 2.5-5.0 The [facility] Comment on above: Order Comment: The A ptima SARS-CoV-2 assay is a nucleic acid amplification test intended for the qualitative detection of RNA from SARS-CoV-2 isolated and purified from nasopharyngeal (RESEARCH SPECIALIST),oropharyngeal (OP), nasal swab, sputum, and bronchoalveolar lavage (BAL) specimens from patients with signs and symptoms of infection who are suspected of COVID-19. Results are for the identification of SARS-CoV-2 RNA. The SARS-CoV-2 RNA is generally detectable during the acute phase of infection. The Aptima SARS-CoV-2 Assay on the [employer] and [employer] system is intended for use by laboratory personnel specifically instructed and trained in the operation of the [employer] and [employer] system. The Aptima SARS-CoV-2 assay is [...] Performed By: #### 3 1792 #### [facility] [address] POC GLUCOSE LABon 04-02-2022 Glucose [Mass/Vol] 126 mg/dL High 70-100 The [facility] Comment on above: Performed By: #### 8 [id number] #### [facility] [address] [place] [address], [facility] Glucose [Mass/Vol] 102 mg/dL High 70-100 The [facility] Comment on above: Performed By: #### 8 [id number] ####[facility] [place] [address], [facility] Glucose [Mass/Vol] 123 mg/dL High 70-100 The [facility] Comment on above: Performed By: #### 8 [id number] #### [facility] [address] [place] [address], [facility] Glucose [Mass/Vol] 96 mg/dL Normal 70-100 The [facility] Comment on above: Performed By: #### 8 [id number] #### [facility] [address] [place] [address], [facility] POC SARS COV2 IDon 2 SARS-CoV-2 (COVID-19) RNA MATTHEW+probe Ql (Unsp spec) Negative Normal NEGATIVE The [facility] Comment on above: Result Comment: ID N [...] Accreditation. Performed By: #### 3 1921 #### [address] PROTHROMBIN TIMEon 2 INR Coag (PPP) [Relative time] 1.21 {INR} High 0.91-1.16 The [facility] Comment on above: Order Comment: No: D [...] Performed By: #### 8 [id number] #### [facility] [address] [facility] [address] PT Coag (PPP) [Time] 15.3 s High 12.3-14.8 The [facility] Comment on above: Order Comment: No: D o not add to previous draw Result Comment: ALL RESULTS MUST BE INTERPRETED WITH RESPECT TO BLOOD DRAWING ARTIFACT OR DILUTION ERROR OF ANTICOAGULANT AT THE TIME OF SAMPLING. Performed By: #### 8 [id number] #### [facility] [address] UFH HEPARIN ASSAYon 04-02-20 22 UNFRACTIONATED HEPARIN 0.96 IU/mL Critically high 0.30-0.70 The [facility] Comment on above: Result Comment: Resu lt checked and called. Accurately read back by Eyal Griffin RN at 0543 Rivaroxaban and Apixaban will interfere with the anti Xa assay used to monitor UFH and LMWH. Performed By: #### 8 [id number] #### [facility] [address] [facility]. [address] *SARS-CoV-2 COVID-19on 04-01 SARS-CoV-2 (COVID-19) RNA MATTHEW+probe Ql (Unsp spec) Not detected Normal Not Detected The [facility] Comment on above: Order Comment: The A ptima SARS-CoV-2 assay is a nucleic acid amplification test intended for the qualitative detection of RNA from SARS-CoV-2 isolated and purified from nasopharyngeal (RESEARCH SPECIALIST),oropharyngeal (OP), nasal swab, sputum, and bronchoalveolar lavage (BAL) specimens from patients with signs and symptoms of infection who are suspected of COVID-19. Results are for the identification of SARS-CoV-2 RNA. The SARS-CoV-2 RNA is generally detectable during the acute phase of infection. The Aptima SARS-CoV-2 Assay on the [employer] system is intended for use by laboratory personnel specifically instructed and trained in the operation of the [employer] system. The Aptima SARS-CoV-2 assay is [...] Performed By: #### 3 [id number] #### [facility] [address] [facility]. [address] AMMONIAon 04-01-2022 Ammonia (P) [Mass/Vol] ug/dL Critically low 11-32 The [facility] Comment on above: Performed By: #### A MM ####[facility] [address] [place], [place] [address]DrLydia Barragan APTTon 04-01-2022 aPTT Coag (Bld) [Time] 35.4 s High 25.0-35.0 The [facility] Comment on above: Order Comment: No: D [...] Performed By: #### 8 [id number] #### [facility] [address] [facility]. [address] CBC AUTO DIFFon 04-01-2022 BASO # 0.2 103/ul Critically high 0.0-0.1 The [facility] Comment on above: Performed By: #### C BC ####[facility] [address] [place] [address]DrLydia Barragan Basophils/100 WBC (Bld) 0.6 % Normal 0.2-2.0 [facility] Comment on above: Performed By: #### C BC ####[facility] [address] [place], [place] [address]DrLydia Barragan EO # 0.0 103/ul Normal 0.0-0.7 The [facility] Comment on above: Performed By: #### C BC ####[facility] [address] [place] [address]Dr. Bhavani Laurel Eosinophils/100 WBC (Bld) 0.1 % Critically low 0.9-7.0 The [facility] Comment on above: Performed By: #### C BC ####[facility] [address] [place], [place] [address]Dr. Jayceeroxi Laurel Erythrocyte distribution width (RBC) [Ratio] 17.8 % Critically high 11.0-15.0 [facility] Comment on above: Performed By: #### C BC ####[facility] [address] [place], [place] [address]Dr. Bhavani Barragan Hematocrit (Bld) [Volume fraction] 39.0 % Normal 36.0-48.0 [facility] Comment on above: Performed By: #### C BC ####[facility] [address] [place], [place] [address]Dr. Bhavani Barragan Hemoglobin (Bld) [Mass/Vol] 11.9 g/dL Critically low 12.0-16.0 [facility] Comment on above: Performed By: #### C BC ####[facility] [address] [place], [place] [address]Dr. Bhavani Barragan IG # 0.74 10e3/ul Critically high 0.00-0.03 [facility] Comment on above: Performed By: #### C BC ####[facility] [id number] [address] [place], [place] [address]Dr. Bhavani Barragan IG % 2.2 % Critically high 0.0-0.5 The [facility] Comment on above: Performed By: #### C BC ####[facility] Nfbxdfgxwn[address] [place], [place] [address]DrLydia Barragan LYMPH # 0.9 103/ul Critically low 1.2-3.8 The [facility] Comment on above: Performed By: #### C BC ####[facility] Efwcyydeox[address] [place], [place] [address]DrLydia Barragan Lymphocytes/100 WBC (Bld) 2.7 % Critically low 20.5-60.0 The [facility] Comment on above: Performed By: #### C BC ####[facility] [address] [place] [address]DrLydia Barragan MANUAL DIFF REQ NO Normal [facility] Comment on above: Performed By: #### C BC ####[facility] Rzcgeybetv1659 [place] [id number] Barragan MCH (RBC) [Entitic mass] 29.8 pg Normal 26.7-34.0 The [facility] Comment on above: Performed By: #### C BC ####[facility] Rrqnzdwaiu[address] [place], [place] [address]DrLydia Barragan MCHC (RBC) [Mass/Vol] 30.5 g/dL Normal 29.9-35.2 The [facility] Comment on above: Performed By: #### C BC ####[facility] Ceagdqglig[address] [place], [place] [address]DrLydia Barragan MCV (RBC) [Entitic vol] 97.5 fL Normal 81.0-99.0 The [facility] Comment on above: Performed By: #### C BC ####[facility] Pgnguaedlz[address] [place], [place] [address]DrLydia Barragan MONO # 0.6 103/ul Normal 0.3-0.8 The [facility] Comment on above: Performed By: #### C BC ####[facility] Sfhaanrlmg[address] [place], [place] [address]DrLydia Barragan Monocytes/100 WBC (Bld) 1.7 % Normal 1.7-12.0 The [facility] Comment on above: Performed By: #### C BC ####[facility] Ldczjsrdun[address] [place], [place] [address]DrLydia Barragan NEUT # 30.7 103/ul Critically high 1.4-6.5 The [facility] Comment on above: Performed By: #### C BC ####[facility] Smaknloobs[address] [place], [place] [address]DrLydia Barragan Neutrophils/100 WBC (Bld) 92.7 % Critically high 43.0-75.0 The [facility] Comment on above: Performed By: #### C BC ####[facility] Xigwefcwzw49[address] [place] [id number]. Bhavani Barragan Platelet mean volume (Bld) [Entitic vol] 9.8 fL Normal 9.5-13.5 The [facility] Comment on above: Performed By: #### C BC ####[facility] Uy[address]wzj[address] [place] [phone]. Bhavani Barragan PLT 372 103/ul Normal 150-450 The [facility] Comment on above: Performed By: #### C BC ####[facility] Ylouawomjk33[address] [place] [phone]. Bhavani Barragan RBC 4.00 106/ul Critically low 4.20-5.40 [facility] Comment on above: Performed By: #### C BC ####[facility] Kqiqnuheyo750[address] [place] [phone]. Bhavani Barragan WBC 33.2 103/ul Critically high 4.0-11.0 The [facility] Comment on above: Performed By: #### C BC ####[facility] Rmimqbdhdi5[address] [place] [id number]. Bhavani Barragan CBC W/DIFFon 04-01-2022 ABS IMM GRANS 0.7 10*3/uL High 0.0-0.2 The [facility] Comment on above: Order Comment: No: D o not add to previous draw Performed By: #### 8 [id number] #### [facility] [address] [place] [address], [facility] ABS NEUTROPHILS 30.0 10*3/uL High 1.6-7.[address] [facility] Comment on above: Order Comment: No: D o not add to previous draw Performed By: #### 8 5499 #### [facility] [address] [place] [address], [place] Basophils (Bld) [#/Vol] 0.2 10*3/uL Normal 0.0-0.2 The [facility] Comment on above: Order Comment: No: D o not add to previous draw Performed By: #### 8 [id number] #### [facility] [address] [place] [address], [facility] Basophils/100 WBC (Bld) 0.5 % Normal 0.0-1.0 The [facility] Comment on above: Order Comment: No: D o not add to previous draw Performed By: #### 8 [id number] #### [facility] [address] [place] [address], [facility] Eosinophils (Bld) [#/Vol] 0.0 10*3/uL Normal 0.0-0.5 The [facility] Comment on above: Order Comment: No: D o not add to previous draw Performed By: #### 8 [id number] #### [facility] [address] [place] [address], [facility] Eosinophils/100 WBC (Bld) 0.1 % Normal 0.0-6.0 The [facility] Comment on above: Order Comment: No: D o not add to previous draw Performed By: #### 8 [id number] #### [facility] [address] [facility] [place] [address], [facility] Erythrocyte distribution width (RBC) [Ratio] 18.3 % High 11.5-15.0 The [facility] Comment on above: Order Comment: No: D o not add to previous draw Performed By: #### 8 [id number] #### [facility] [address] [place] [address], [place] Hematocrit (Bld) [Volume fraction] 40.4 % Normal 36.0-45.0 The [facility] Comment on above: Order Comment: No: D o not add to previous draw Performed By: #### 8 [id number] #### [facility] [address] [place] [address], [facility] Hemoglobin (Bld) [Mass/Vol] 12.9 g/dL Normal 12.0-15.0 The [facility] Comment on above: Order Comment: No: D o not add to previous draw Performed By: #### 8 [id number] #### [facility] [address] [place] [address], [facility] IMMATURE GRANS 2.1 % High 0.0-1.0 The [facility] Comment on above: Order Comment: No: D o not add to previous draw Performed By: #### 8 [id number] #### [facility] [address] [place] [address], [facility] Lymphocytes (Bld) [#/Vol] 0.8 10*3/uL Low 1.2-4.0 The [facility] Comment on above: Order Comment: No: D o not add to previous draw Performed By: #### 8 [id number] #### [facility] [address] [facility] [place] [place] [address], [facility] Lymphocytes/100 WBC (Bld) 2.6 % Low 20.0-45.0 The [facility] Comment on above: Order Comment: No: D o not add to previous draw Performed By: #### 8 [id number] #### [facility] [address] [facility] [place] [address], [facility] MCH (RBC) [Entitic mass] 30.6 pg Normal 27.0-33.0 The [facility] Comment on above: Order Comment: No: D o not add to previous draw Performed By: #### 8 [id number] #### [facility] [address] [facility] [place] [address], [facility] MCHC (RBC) [Mass/Vol] 31.9 g/dL Low 32.0-35.0 The [facility] Comment on above: Order Comment: No: D o not add to previous draw Performed By: #### 8 [id number] #### [facility] [address] [place] [id number], [facility] MCV (RBC) [Entitic vol] 96.0 fL Normal 82.0-98.0 The [facility] Comment on above: Order Comment: No: D o not add to previous draw Performed By: #### 8 [id number] #### [facility] [address] [place] [address], [facility] Monocytes (Bld) [#/Vol] 0.5 10*3/uL Normal 0.1-1.0 The [facility] Comment on above: Order Comment: No: D o not add to previous draw Performed By: #### 8 [id number] #### [facility] [address] [place] [id number], [facility] MONOS 1.7 % Low 5.0-12.0 The [facility] Comment on above: Order Comment: No: D o not add to previous draw Performed By: #### 8 [id number] #### [facility] [address] [place] [id number], [facility] Neutrophils/100 WBC (Bld) 93.0 % High 40.0-72.0 The [facility] Comment on above: Order Comment: No: D o not add to previous draw Performed By: #### 8 [id number] #### [facility] [address] [facility] [place] [address], [facility] Nucleated RBC/100 WBC (Bld) [Ratio] 0 % Normal 0-0 The [facility] Comment on above: Order Comment: No: D o not add to previous draw Performed By: #### 8 [id number] #### [facility] [address] [place] [address], [facility] PLAT CNT 375 10*3/uL Normal 150-400 The [facility] Comment on above: Order Comment: No: D o not add to previous draw Performed By: #### 8 [id number] #### [facility] [address] [place] [address], [facility] RBC (Bld) [#/Vol] 4.21 10*6/uL Normal 3.80-5.00 The [facility] Comment on above: Order Comment: No: D o not add to previous draw Performed By: #### 8 [id number] #### [facility] [address] [place] [address], [facility] WBC (Bld) [#/Vol] 32.19 10*3/uL High 4.00-10.60 [facility] Comment on above: Order Comment: No: D o not add to previous draw Performed By: #### 8 [id number] #### [facility] [address] [place] [address], [facility] COMP METABOLIC PANELon 04-01 Albumin [Mass/Vol] 3.1 g/dL Low 3.5-5.7 [facility] Comment on above: Order Comment: No: D o not add to previous draw Performed By: #### 2 2706 #### [facility] [address] [facility] [place] [address], [facility] ALKALINE PHOSPH 208 IU/L High 34-104 [facility] Comment on above: Order Comment: No: D o not add to previous draw Performed By: #### 2 2706 #### [facility] [address] [facility] [place] [address], [facility] ALT [Catalytic activity/Vol] 27 U/L Normal 7-52 The [facility] Comment on above: Order Comment: No: D o not add to previous draw Performed By: #### 2 2706 #### [facility] [address] [facility] [place] [address], [facility] AST [Catalytic activity/Vol] 12 U/L Low 13-39 The [facility] Comment on above: Order Comment: No: D o not add to previous draw Performed By: #### 2 2706 #### [facility] [address] [place] [address], [facility] Bilirubin [Mass/Vol] 1.8 mg/dL High 0.3-1.0 The [facility] Comment on above: Order Comment: No: D o not add to previous draw Performed By: #### 2 2706 #### [facility] [address] [place] [address], [place] Calcium [Mass/Vol] 8.3 mg/dL Low 8.6-10.3 [facility] Comment on above: Order Comment: No: D o not add to previous draw Performed By: #### 2 2706 #### [facility] [address] [place] [address], [place] Chloride [Moles/Vol] 103 mmol/L Normal 98-107 The [facility] Comment on above: Order Comment: No: D o not add to previous draw Performed By: #### 2 2706 #### [facility] [address] [place] [address], [place] CO2 [Moles/Vol] 20 mmol/L Low 21-31 [facility] Comment on above: Order Comment: No: D o not add to previous draw Performed By: #### 2 2706 #### [facility] [address] [place] [address], [place] Creatinine [Mass/Vol] 1.12 mg/dL Normal 0.60-1.20 The [facility] Comment on above: Order Comment: No: D o not add to previous draw Performed By: #### 2 2706 #### [facility] [address] [place] [address], [facility] eGFR- 56 ml/min/1.73sq m Abnormal >60 The [facility] Comment on above: Order Comment: No: D o not add to previous draw Result Comment: Calc ulation may not be valid for patients over 70 years Performed By: #### 2 2706 #### [facility] [address] [place] [address], [place] eGFR- non- 47 ml/min/1.73sq m Abnormal >60 The [facility] Comment on above: Order Comment: No: D o not add to previous draw Result Comment: Calc ulation may not be valid for patients over 70 years Performed By: #### 2 2706 #### [facility] [address] [place] [address], [facility] Glucose [Mass/Vol] 110 mg/dL High 70-100 The [facility] Comment on above: Order Comment: No: D o not add to previous draw Performed By: #### 2 2706 #### [facility] [address] [place] [address], [facility] Potassium [Moles/Vol] 4.1 mmol/L Normal 3.5-5.1 The [facility] Comment on above: Order Comment: No: D o not add to previous draw Performed By: #### 2 2706 #### [facility] [address] [place] [address], [facility] Protein [Mass/Vol] 6.1 g/dL Normal 6.0-8.3 [facility] Comment on above: Order Comment: No: D o not add to previous draw Performed By: #### 2 2706 #### [facility] [address] [place] [address], [facility] Sodium [Moles/Vol] 134 mmol/L Low 136-145 The [facility] Comment on above: Order Comment: No: D o not add to previous draw Performed By: #### 2 2706 #### [facility] [address] [place] [address], [facility] Urea nitrogen [Mass/Vol] 21 mg/dL Normal 7-25 The [facility] Comment on above: Order Comment: No: D o not add to previous draw Performed By: #### 2 2706 #### [facility] [address] [place] [address], [place] DIGOXINon 04-01-2022 Digoxin [Mass/Vol] 0.6 ng/mL Low 0.7-2.0 The [facility] Comment on above: Performed By: #### 2 0126 #### [facility] [address] [place] [address], [place] DIRECT BILIon 04-01-2022 Bilirubin.direct [Mass/Vol] 0.7 mg/dL High 0.0-0.2 [facility] Comment on above: Order Comment: No: D o not add to previous draw Performed By: #### 2 2706 #### [facility] [address] [place] [address], [place] LIPASEon 04-01-2022 Lipase [Catalytic activity/Vol] 2234.0 U/L Critically high 73.0-393.0 [facility] Comment on above: Performed By: #### L IPA, CMP ####[facility] [address] [place] [id number]. Bhavani Barragan LIPASE BLOODon 04-01-2022 LIPASE 354 Units/L High 11-82 The [facility] Comment on above: Order Comment: No: D o not add to previous draw Performed By: #### 2 2706 #### [facility] [address] [place] [address], [place] POC GLUCOSE LABon 04-01-2022 Glucose [Mass/Vol] 114 mg/dL High 70-100 The [facility] Comment on above: Performed By: #### 8 5499 #### [facility] [address] [place] [address], [place] Glucose [Mass/Vol] 113 mg/dL High 70-100 The [facility] Comment on above: Performed By: #### 8 5499 #### [facility] [address] [place] [address], [place] Glucose [Mass/Vol] 101 mg/dL High 70-100 The [facility] Comment on above: Performed By: #### 3 0313 #### [facility] [address] [place] [address], [place] PROF 14(COMP METB)on 022 Albumin [Mass/Vol] 2.0 g/dL Critically low 3.4-5.0 [facility] Comment on above: Performed By: #### L IPA, CMP ####[facility] [address] [place] [address]Dr. Bhavani Barragan Albumin/Globulin [Mass ratio] 0.5 {ratio} Normal [facility] Comment on above: Performed By: #### L IPA, CMP ####[facility] [address] [place] [address]Dr. Bhavani Barragan ALP [Catalytic activity/Vol] 247 U/L Critically high 46-116 [facility] Comment on above: Performed By: #### L IPA, CMP ####[facility] Awwbignwwa[address] [place], [place] [address]Dr. Bhavani Barragan ALT [Catalytic activity/Vol] 50 U/L Normal 14-59 [facility] Comment on above: Performed By: #### L IPA, CMP ####[facility] Bazkw[address] [place], [place] [address]Dr. Bhavani Barragan Anion gap [Moles/Vol] 11.2 mmol/L Normal [facility] Comment on above: Performed By: #### L IPA, CMP ####[facility] Eiskconkyb[address] [place], [place] [address]Dr. Bhavani Barragna AST [Catalytic activity/Vol] 19 U/L Normal 15-37 [facility] Comment on above: Performed By: #### L IPA, CMP ####[facility] Cwnzpdezru[address] [place], [place] [address]Dr. Bhavani Barragan Bilirubin [Mass/Vol] 1.5 mg/dL Critically high 0.2-1.0 [facility] Comment on above: Performed By: #### L IPA, CMP ####[facility] Mzrigcpnme[address] [place], [place] [address]Dr. Bhavani Barragan Calcium [Mass/Vol] 8.1 mg/dL Critically low 8.5-10.1 [facility] Comment on above: Performed By: #### L IPA, CMP ####[facility] [address] [place] [address]Dr. Bhavani Barragan Chloride [Moles/Vol] 105 mmol/L Normal 98-107 The [facility] Comment on above: Performed By: #### L IPA, CMP ####[facility] Qcgzrdwapm[address] [place], [place] [address]Dr. Bhavani Barragan CO2 [Moles/Vol] 25.1 mmol/L Normal 21.0-32.0 [facility] Comment on above: Performed By: #### L IPA, CMP ####[facility] Doxkwkaakh84[address] [place], [place] [address]Dr. Bhavani Barragan Creatinine [Mass/Vol] 1.39 mg/dL Critically high 0.55-1.02 [facility] Comment on above: Performed By: #### L IPA, CMP ####[facility] Swkegzkpgr[address] [place], [place] [address]Dr. Bhavani Barragan EGFR-AF MOZAMBICAN 44 mL/min/1.73m2 Critically low >=60 [facility] Comment on above: Performed By: #### L IPA, CMP ####[facility] A[address]im[address] [place], [place] [address]Dr. Bhavani Barragan EGFR-NON AF MOZAMBICAN 36 mL/min/1.73m2 Critically low >=60 The [facility] Comment on above: Performed By: #### L IPA, CMP ####[facility] [address]ptz[address] [place], [place] [address]Dr. Bhavani Barragan Globulin (S) [Mass/Vol] 4.3 g/dL Normal [facility] Comment on above: Performed By: #### L IPA, CMP ####[facility] Mtwn[address]ori[address] [place], [place] [address]Dr. Bhavani Barragan Glucose [Mass/Vol] 113 mg/dL Critically high 74-106 [facility] Comment on above: Performed By: #### L IPA, CMP ####[facility] Nlqnffbyqv232[address] [place], [place] [address]Dr. Bhavani Barragan Potassium [Moles/Vol] 4.3 mmol/L Normal 3.5-5.1 The [facility] Comment on above: Performed By: #### L IPA, CMP ####[facility] [address] [place] [address]Dr. Bhavani Barragan Protein [Mass/Vol] 6.3 g/dL Critically low 6.4-8.2 Th e [facility] Comment on above: Performed By: #### L IPA, CMP ####[facility] [address]wmaz[address] [place] [address]Dr. Bhavani Barragan Sodium [Moles/Vol] 137 mmol/L Normal 136-145 [facility] Comment on above: Performed By: #### L IPA, CMP ####[facility] [address] [place], [place] [address]Dr. Bhavani Barragan Urea nitrogen [Mass/Vol] 26.0 mg/dL Critically high 7.0-18.0 [facility] Comment on above: Performed By: #### L IPA, CMP ####[facility] X[address]ta[address] [place], [place] [address]Dr. Bhavani Barragan Urea nitrogen/Creatinine [Mass ratio] 18.7 mg/mg Normal [facility] Comment on above: Performed By: #### L IPA, CMP ####[facility] Y[address] [place], [place] [address]Dr. Bhavani Barragan PROTIMEon 04-01-2022 INR Coag (PPP) [Relative time] 1.14 {INR} Normal [facility] Comment on above: Performed By: #### P TT, PT ####[facility] R[address]rs[address] [place], [place] [address]Dr. Bhavani Barragan INR GUIDELINES SEE BELOW Normal The [facility] Comment on above: Result Comment: WALKER RED INR: 2.0 - 3.0 CONDITIONS NOT LISTED BELOW 2.5 - 3.5 FOR PROSTHETIC HEART VALVE REPLACEMENT 2.5 - 3.5 RECURRENT THROMBOSIS Performed By: #### P TT, PT ####[facility] L[address]xkw[address] [place], [place] [address]Dr. Bhavani Barragan PT Coag (PPP) [Time] 12.2 s Critically high 9.0-11.6 [facility] Comment on above: Performed By: #### P TT, PT ####[facility] [address] [place], [place] [address]Gl. Bhavani Barragan PTTon 04-01-2022 aPTT Coag (Bld) [Time] 25.4 s Normal 22.3-36.2 [facility] Comment on above: Performed By: #### P TT, PT ####[facility] [address] [place], [place] [address]Zb. Bhavani Barragan TROPONIN-Ion 04-01-2022 Troponin I.cardiac [Mass/Vol] 0.02 ng/mL Normal 0.00-0.04 [facility] Comment on above: Result Comment: REFE RENCE RANGES: 0.00 - 0.04 ng/ml NORMAL 0.05 - 0.50 ng/ml INDETERMINATE > 0.50 ng/ml CONSISTENT WITH AN M.I. Performed By: #### 2 2706 #### [facility] [address] UFH HEPARIN ASSAYon 04-01-20 UNFRACTIONATED HEPARIN >1.00 Critically high 0.30-0.70 [facility] Comment on above: Result Comment: Resu lt checked and called. Accurately read back by EYAL GRIFFIN RN ON 04/01/2022 AT 22:07 Rivaroxaban and Apixaban will interfere with the anti Xa assay used to monitor UFH and LMWH. Performed By: #### 8 [id number] #### [facility] 3000 [facility]. [address] UNFRACTIONATED HEPARIN >1.00 Critically high 0.30-0.70 The [facility] Comment on above: Result Comment: Resu lt checked and called. Accurately read back by YANICK MICHAELS RN ON 04/01/2022 AT 16:07 Rivaroxaban and Apixaban will interfere with the anti Xa assay used to monitor UFH and LMWH. Performed By: #### 8 [id number] #### [facility] [address] [facility] [place] [address], [facility] AMMONIAon 03-31-2022 Ammonia (P) [Mass/Vol] ug/dL Critically low 11-32 The [facility] Comment on above: Performed By: #### A MM ####[facility] [address] [place] [address]Dr. Bhavani Barragan CBC AUTO DIFFon 03-31-2022 BASO # 0.1 103/ul Normal 0.0-0.1 The [facility] Comment on above: Performed By: #### C BC ####[facility] [address] [place], [place] [address]Dr. Bhavani Barragan Basophils/100 WBC (Bld) 0.4 % Normal 0.2-2.0 [facility] Comment on above: Performed By: #### C BC ####[facility] Bjudtbgarb204[address] [place], [place] [address]Dr. Bhavani Barragan EO # 0.0 103/ul Normal 0.0-0.7 [facility] Comment on above: Performed By: #### C BC ####[facility] Uxyuygiqdo39[address] [place], [place] [address]Dr. Bhavani Barragan Eosinophils/100 WBC (Bld) 0.1 % Critically low 0.9-7.0 [facility] Comment on above: Performed By: #### C BC ####[facility] Vcwuaqxran90[address] [place], [place] [address]Dr. Bhavani Barragan Erythrocyte distribution width (RBC) [Ratio] 17.7 % Critically high 11.0-15.0 [facility] Comment on above: Performed By: #### C BC ####[facility] Drcoytxtgc846[address] [place], [place] [address]Dr. Bhavani Barragan Hematocrit (Bld) [Volume fraction] 36.5 % Normal 36.0-48.0 [facility] Comment on above: Performed By: #### C BC ####[facility] Msdqdndtfw[address] [place], [place] [address]Dr. Bhavani Barragan Hemoglobin (Bld) [Mass/Vol] 11.5 g/dL Critically low 12.0-16.0 [facility] Comment on above: Performed By: #### C BC ####[facility] Zhfyrvokem054[address] [place], [place] [address]Dr. Bhavani Barragan IG # 0.38 10e3/ul Critically high 0.00-0.03 [facility] Comment on above: Performed By: #### C BC ####[facility] Mguvdicvri[address] [place] [address]DrLydia Championroxi Laurel IG % 1.2 % Critically high 0.0-0.5 [facility] Comment on above: Performed By: #### C BC ####[facility] Kgltgjtpmo8822 [place] [address]DrLydia Barragan LYMPH # 0.7 103/ul Critically low 1.2-3.8 [facility] Comment on above: Performed By: #### C BC ####[facility] Ofotquwkfo8301[address] [place], [place] [address]DrLydia Barragan Lymphocytes/100 WBC (Bld) 2.4 % Critically low 20.5-60.0 [facility] Comment on above: Performed By: #### C BC ####[facility] Wyjhotfzvp206[address] [place], [place] [address]DrLydia Barragan MANUAL DIFF REQ NO Normal [facility] Comment on above: Performed By: #### C BC ####[facility] Bfaupfgtuy[address] [place], [place] [address]DrLydia Barragan MCH (RBC) [Entitic mass] 30.3 pg Normal 26.7-34.0 [facility] Comment on above: Performed By: #### C BC ####[facility] Cqasmsbyqd9620[address] [place], [place] [address]DrLydia Barragan MCHC (RBC) [Mass/Vol] 31.5 g/dL Normal 29.9-35.2 [facility] Comment on above: Performed By: #### C BC ####[facility] Vplukudyfi12[address] [place], [place] [address]DrLydia Barragan MCV (RBC) [Entitic vol] 96.3 fL Normal 81.0-99.0 [facility] Comment on above: Performed By: #### C BC ####[facility] Tcyvfcjyly859[address] [place], [place] [address]Dr. Bhavani Barragan MONO # 0.8 103/ul Normal 0.3-0.8 [facility] Comment on above: Performed By: #### C BC ####[facility] Umfxlwsjkx8642 [place] [id number]. Bhavani Barragan Monocytes/100 WBC (Bld) 2.5 % Normal 1.7-12.0 [facility] Comment on above: Performed By: #### C BC ####[facility] Swcwfkwwio4411 [place] [id number]. Bhavani Barragan NEUT # 29.0 103/ul Critically high 1.4-6.5 [facility] Comment on above: Performed By: #### C BC ####[facility] Dszkiyqkqq9617 [place] [id number]. Bhavani Barragan Neutrophils/100 WBC (Bld) 93.4 % Critically high 43.0-75.0 [facility] Comment on above: Performed By: #### C BC ####[facility] Nmwyzudjun2256 [place] [id number]. Bhavani Barragan Platelet mean volume (Bld) [Entitic vol] 10.5 fL Normal 9.5-13.5 [facility] Comment on above: Performed By: #### C BC ####[facility] Zgwnzoomci2221 [place] [phone]. Bhavani Barragan PLT 346 103/ul Normal 150-450 [facility] Comment on above: Performed By: #### C BC ####[facility] Nepbembeff3870 [place] [phone]. Bhavani Barragan RBC 3.79 106/ul Critically low 4.20-5.40 [facility] Comment on above: Performed By: #### C BC ####[facility] Mhanywwlhf0283 [place] [id number]. Bhavani Barragan WBC 31.0 103/ul Critically high 4.0-11.0 [facility] Comment on above: Performed By: #### C BC ####[facility] Xbhgmvfsyh3316 [place] [id number]. Bhavani Barragan CT CHEST WO CONon 03-31-2022 CT CHEST WO CON Normal [facility] LIPASEon 03-31-2022 Lipase [Catalytic activity/Vol] 3577.0 U/L Critically high 73.0-393.0 [facility] Comment on above: Performed By: #### L IPA ####[facility] Qrmshhcxuy5322 [place] [address]Dr. Bhavani Barragan MRI ABDOMEN WO CONon 022 MRI ABDOMEN WO CON Normal The [facility] POINT OF CARE GLUCOSEon 03-18 Glucose [Mass/Vol] 153 mg/dL Critically high 74-106 [facility] Comment on above: Performed By: #### P OCGLUC ####[facility] Icprhmeply59[address] [place], [place] [address]Dr. Bhavani Barragan Glucose [Mass/Vol] 158 mg/dL Critically high 74-106 [facility] Comment on above: Performed By: #### P OCGLUC ####[facility] Badigvtton3434[address] [place], [place] [address]Dr. Bhavani Barragan Glucose [Mass/Vol] 120 mg/dL Critically high 74-106 [facility] Comment on above: Performed By: #### P OCGLUC ####[facility] Qylquwoajb0677[address] [place], [place] [address]Dr. Bhavani Barragan Glucose [Mass/Vol] 74 mg/dL Normal 74-106 [facility] Comment on above: Performed By: #### P OCGLUC ####[facility] Khpmptovrb7510[address] [place], [place] [address]Dr. Bhavani Barragan PROF 14(COMP METB)on 022 Albumin [Mass/Vol] 1.9 g/dL Critically low 3.4-5.0 [facility] Comment on above: Performed By: #### C MP ####[facility] Mheipkcxou7810[address] [place], [place] [address]Dr. Bhavani Barragan Albumin/Globulin [Mass ratio] 0.5 {ratio} Normal [facility] Comment on above: Performed By: #### C MP ####[facility] Xfypvooygo1587[address] [place], [place] [address]Dr. Bhavani Barragan ALP [Catalytic activity/Vol] 283 U/L Critically high 46-116 [facility] Comment on above: Performed By: #### C MP ####[facility] Sncgmwzeoh0057 [place] [address]Dr. Bhavani Barragan ALT [Catalytic activity/Vol] 64 U/L Critically high 14-59 [facility] Comment on above: Performed By: #### C MP ####[facility] Kwknxkhweq979[address] [place], [place] [address]Dr. Bhavani Laurel Anion gap [Moles/Vol] 11.6 mmol/L Normal [facility] Comment on above: Performed By: #### C MP ####[facility] Ttpvamhlhv4[address] [place], [place] [address]Dr. Bhavani Laurel AST [Catalytic activity/Vol] 52 U/L Critically high 15-37 [facility] Comment on above: Performed By: #### C MP ####[facility] Btoaoozvzt898[address] [place], [place] [address]Dr. Bhavani Laurel Bilirubin [Mass/Vol] 2.8 mg/dL Critically high 0.2-1.0 [facility] Comment on above: Performed By: #### C MP ####[facility] Caaybqwelp817[address] [place], [place] [address]Dr. Bhavani Laurel Calcium [Mass/Vol] 7.9 mg/dL Critically low 8.5-10.1 [facility] Comment on above: Performed By: #### C MP ####[facility] Sgmibrvrlk1975[address] [place], [place] [address]Dr. Bhavani Laurel Chloride [Moles/Vol] 102 mmol/L Normal 98-107 [facility] Comment on above: Performed By: #### C MP ####[facility] Niofjnbcel2275[address] [place], [place] [address]Dr. Bhavani Barragan CO2 [Moles/Vol] 27.4 mmol/L Normal 21.0-32.0 [facility] Comment on above: Performed By: #### C MP ####[facility] Uysueuzcet118[address] [place], [place] [address]Dr. Jayceeroxi Barragan Creatinine [Mass/Vol] 1.48 mg/dL Critically high 0.55-1.02 [facility] Comment on above: Performed By: #### C MP ####[facility] Wbsbtpsqfc8464 [place] [address]Dr. Bhavani Laurel EGFR-AF MOZAMBICAN 41 mL/min/1.73m2 Critically low >=60 [facility] Comment on above: Performed By: #### C MP ####[facility] Qroblkhxap5517 [place] [address]Dr. Jayceeroxi Laurel EGFR-NON AF MOZAMBICAN 34 mL/min/1.73m2 Critically low >=60 [facility] Comment on above: Performed By: #### C MP ####[facility] Ljkrxklxlz2115[address] [place], [place] [address]Dr. Bhavani Barragan Globulin (S) [Mass/Vol] 4.0 g/dL Normal [facility] Comment on above: Performed By: #### C MP ####[facility] Okmfkozgtt3888[address] [place], [place] [address]Dr. Bhavani Barragan Glucose [Mass/Vol] 84 mg/dL Normal 74-106 [facility] Comment on above: Performed By: #### C MP ####[facility] Fkvgfvhywj6735[address] [place], [place] [address]Dr. Bhavani Barragan Potassium [Moles/Vol] 4.0 mmol/L Normal 3.5-5.1 [facility] Comment on above: Performed By: #### C MP ####[facility] Hxzollrmcb2548[address] [place], [place] [address]Dr. Bhavani Barragan Protein [Mass/Vol] 5.9 g/dL Critically low 6.4-8.2 [facility] Comment on above: Performed By: #### C MP ####[facility] Lonpzhudzi360[address] [place], [place] [address]Dr. Bhavani Barragan Sodium [Moles/Vol] 137 mmol/L Normal 136-145 [facility] Comment on above: Performed By: #### C MP ####[facility] Lfikdjtwal768[address] [place], [place] [address]Dr. Bhavani Barragan Urea nitrogen [Mass/Vol] 26.0 mg/dL Critically high 7.0-18.0 [facility] Comment on above: Performed By: #### C MP ####[facility] Npzaqzsoum08[address] [place], [place] [address]Dr. Bhavani Barragan Urea nitrogen/Creatinine [Mass ratio] 17.6 mg/mg Normal [facility] Comment on above: Performed By: #### C MP ####[facility] Etcfwatvqo703[address] [place], [place] [address]Dr. Bhavani Laurel PROTIMEon 03-31-2022 INR Coag (PPP) [Relative time] 1.34 {INR} Normal [facility] Comment on above: Performed By: #### P T, PTT ####[facility] Nsigcakelz187[address] [place], [place] [address]Dr. Bhavani Laurel INR GUIDELINES SEE BELOW Normal [facility] Comment on above: Result Comment: WALKER RED INR: 2.0 - 3.0 CONDITIONS NOT LISTED BELOW 2.5 - 3.5 FOR PROSTHETIC HEART VALVE REPLACEMENT 2.5 - 3.5 RECURRENT THROMBOSIS Performed By: #### P T, PTT ####[facility] Phcaxqxupo8834[address] [place], [place] [address]Dr. Bhavani Barragan PT Coag (PPP) [Time] 14.2 s Critically high 9.0-11.6 [facility] Comment on above: Performed By: #### P T, PTT ####[facility] Yvganixtsa6[address] [place], [place] [address]Dr. Bhavani Laurel PTTon 03-31-2022 aPTT Coag (Bld) [Time] 37.6 s Critically high 22.3-36.2 [facility] Comment on above: Performed By: #### P T, PTT ####[facility] Tyvesccevf1860[address] [place], [place] [address]Dr. Bhavani Laurel XR CHEST 1 Von 03-31-2022 XR CHEST 1 V Normal [facility] AMMONIAon 03-30-2022 Ammonia (P) [Moles/Vol] 30 umol/L Normal 11-32 [facility] Comment on above: Performed By: #### A MM ####[facility] Wnlkoovguq9832 [place] [address]Dr. Bhavani Barragan CBC W MANUAL DIFFon 03-30-20 22 ATYPICAL LYMPH # Normal [facility] Comment on above: Performed By: #### C OMID ####[facility] Fpchyhrrvn7354 [place] [address]Dr. Bhavani Barragan ATYPICAL LYMPH % Normal [facility] Comment on above: Performed By: #### C OMID ####[facility] Tokzhfuody7604 [place] [address]Dr. Bhavani Barragan BAND # Normal 0.0-0.3 [facility] Comment on above: Performed By: #### C OMID ####[facility] Sczpnbmayk360[address] [place], [place] [address]Dr. Bhavani Barragan BAND % Normal 0-5 [facility] Comment on above: Performed By: #### C OMID ####[facility] Eqnhlxnkqx1404[address] [place], [place] [address]Dr. Bhavani Barragan BASOM # 0.00 103/ul Normal 0.00-0.10 [facility] Comment on above: Performed By: #### C OMID ####[facility] Mfutdjljgg3834[address] [place], [place] [address]Dr. Bhavani Barragan BASOM % 0.0 % Critically low 0.2-2.0 [facility] Comment on above: Performed By: #### C OMID ####[facility] Himvwvbaph8358[address] [place], [place] [address]Dr. Bhavani Barragan BLAST # Normal [facility] Comment on above: Performed By: #### C OMID ####[facility] Eptvxhkdjx3642 [place] [address]Dr. Bhavani Barragan BLAST % Normal [facility] Comment on above: Performed By: #### C OMID ####[facility] Ylvjpvxths4175 [place] [address]Dr. Bhavani Barragan CORRECTED WBC Normal 4.0-11.0 [facility] Comment on above: Performed By: #### C OMID ####[facility] Trtrxpijqy5150 [place] [id number]. Bhavani Barragan EOS # 0.00 103/ul Normal 0.00-0.70 [facility] Comment on above: Performed By: #### C OMID ####[facility] Cooazxrbfv1554 [place] [phone]. Bhavani Barragan EOS% 0.0 % Critically low 0.9-7.0 [facility] Comment on above: Performed By: #### C OMID ####[facility] Nhsoorhwtz8959 [place] [phone]. Bhavani Barragan HCT 39.8 % Normal 36.0-48.0 [facility] Comment on above: Performed By: #### C OMID ####[facility] Bkrasownuz0792 [place] [address]Dr. Bhavani Barragan HGB 12.2 g/dl Normal 12.0-16.0 [facility] Comment on above: Performed By: #### C OMID ####[facility] Pflmwtyxdg7774 [place] [phone]. Bhavani Barragan LYMPHM # 0.56 103/ul Critically low 1.20-3.80 [facility] Comment on above: Performed By: #### C OMID ####[facility] Kbginrbjpq8088 [place] [phone]. Bhavani Barragan LYMPHM% 2.0 % Critically low 20.5-60.0 [facility] Comment on above: Performed By: #### C OMID ####[facility] Pehufhenod1794 [place] [phone]. Bhavani Barragan MCH 29.7 pg Normal 26.7-34.0 [facility] Comment on above: Performed By: #### C OMID ####[facility] Wfpjvspbzn7029 [place] [phone]. Bhavani Barragan MCHC 30.7 g/dl Normal 29.9-35.2 [facility] Comment on above: Performed By: #### C OMID ####[facility] Pttbexqlju[address] [place], [place] [address]Dr. Bhavani Barragan MCV 96.8 fL Normal 81.0-99.0 [facility] Comment on above: Performed By: #### C OMID ####[facility] [address]ev[address]kgumj33[address] [place], [place] [address]Oy. Bhavani Barragan METAMYELOCYTE # Normal [facility] Comment on above: Performed By: #### C OMID ####[facility] Nzriwdbhqu3599 [place], [place] [address]Uz. Bhavain Barragan METAMYELOCYTE % Normal [facility] Comment on above: Performed By: #### C OMID ####[facility] Icztqzhfdf6916 [place], [place] [address]Qb. Bhavani Barragan MONOM# 0.28 103/ul Critically low 0.30-0.80 [facility] Comment on above: Performed By: #### C OMID ####[facility] Fdupnhqptq5309 [place] [phone]. Bhavani Barragan MONOM% 1.0 % Critically low 1.7-12.0 [facility] Comment on above: Performed By: #### C OMID ####[facility] Xpdcqiyjoe5714 [place] [phone]. Bhavani Barragan MPV 10.2 fL Normal 9.5-13.5 [facility] Comment on above: Performed By: #### C OMID ####[facility] Hocxokpuaw0883 [place] [phone]. Bhavani Barragan MYELOCYTE # Normal [facility] Comment on above: Performed By: #### C OMID ####[facility] Wcdibcqeqp2538 [place], [place] [address]Pc. Bhavani Barragan MYELOCYTE % Normal [facility] Comment on above: Performed By: #### C OMID ####[facility] Yzqbbuysvf3634 [place] [phone]. Bhavani Barragan NRBC Normal [facility] Comment on above: Performed By: #### C OMID ####[facility] Zuovsdenho7859 [place] [phone]. Bhavani Barragan PLT 371 103/ul Normal 150-450 [facility] Comment on above: Performed By: #### C BCMAN ####[facility] Vekdogmvlb8502 [place], [place] [address]Eu. Bhavani Barragan RBC 4.11 106/ul Critically low 4.20-5.40 [facility] Comment on above: Performed By: #### C BCMAN ####[facility] Adxblqrfjf9125 [place], [place] [address]Pw. Bhavani Barragan RDW 17.4 % Critically high 11.0-15.0 [facility] Comment on above: Performed By: #### C BCJERSON ####[facility] Jstfbycwdx3108 [place], [place] [address]Eb. Bhavani Barragan SEG # 27.35 103/ul Critically high 1.40-6.50 [facility] Comment on above: Performed By: #### C BCJERSON ####[facility] Ljarbkdpah7940 [place], [place] [address]Ap. Bhavani Barragan SEG % 97.0 % Critically high 43.0-75.0 [facility] Comment on above: Performed By: #### C BCJERSON ####[facility] Hinnwezkwh2799 [place], [place] [address]Fu. Bhavani Barragan WBC 28.2 103/ul Critically high 4.0-11.0 [facility] Comment on above: Performed By: #### C BCMAN ####[facility] Dqohmlgmrt4793 [place], [place] [address]Ny. Bhavani Barragan POINT OF CARE GLUCOSEon 05- Glucose [Mass/Vol] 92 mg/dL Normal 74-106 [facility] Comment on above: Performed By: #### P OCGLUC ####[facility] Psoisozhns3266 [place], [place] [address]Df. Bhavani Barragan Glucose [Mass/Vol] 122 mg/dL Critically high 74-106 [facility] Comment on above: Result Comment: Foll ow Protocol Performed By: #### P OCGLUC ####[facility] Obbqwhaslq1965 [place] [phone]. Bhavani Barragan Glucose [Mass/Vol] 107 mg/dL Critically high 74-106 [facility] Comment on above: Performed By: #### P OCGLUC ####[facility] Avkzojqemp75[address] [place], [place] [address]Dr. Bhavani Barragan PROF 14(COMP METB)on 022 Albumin [Mass/Vol] 2.0 g/dL Critically low 3.4-5.0 Th e [facility] Comment on above: Performed By: #### C MP ####[facility] Qefpvwdkhh8648[address] [place], [place] [address]Dr. Bhavani Barragan Albumin/Globulin [Mass ratio] 0.5 {ratio} Normal [facility] Comment on above: Performed By: #### C MP ####[facility] Kmczgqhbhb7[address] [place], [place] [address]Dr. Bhavani Barragan ALP [Catalytic activity/Vol] 298 U/L Critically high 46-116 [facility] Comment on above: Performed By: #### C MP ####[facility] Owgpjzdzve858[address] [place], [place] [address]Dr. Bhavani Barragan ALT [Catalytic activity/Vol] 94 U/L Critically high 14-59 [facility] Comment on above: Performed By: #### C MP ####[facility] Yccyhrgwoa180[address] [place], [place] [address]Dr. Bhavani Barragan Anion gap [Moles/Vol] 12.8 mmol/L Normal [facility] Comment on above: Performed By: #### C MP ####[facility] Xskvybrrkw8287[address] [place], [place] [address]Dr. Bhavani Barragan AST [Catalytic activity/Vol] 73 U/L Critically high 15-37 [facility] Comment on above: Performed By: #### C MP ####[facility] Ldsnqcinup0314[address] [place], [place] [address]Dr. Bhavani Barragan Bilirubin [Mass/Vol] 3.6 mg/dL Critically high 0.2-1.0 [facility] Comment on above: Performed By: #### C MP ####[facility] Kindqgznsl8584[address] [place], [place] [address]Dr. Bhavani Barragan Calcium [Mass/Vol] 7.8 mg/dL Critically low 8.5-10.1 [facility] Comment on above: Performed By: #### C MP ####[facility] Etrvyzjadf417[address] [place], [place] [address]Dr. Bhavani Barragan Chloride [Moles/Vol] 103 mmol/L Normal 98-107 [facility] Comment on above: Performed By: #### C MP ####[facility] Temykhgeoi8[address] [place], [place] [address]Dr. Bhavani Barragan CO2 [Moles/Vol] 25.2 mmol/L Normal 21.0-32.0 [facility] Comment on above: Performed By: #### C MP ####[facility] Pwugaayynf295[address] [place], [place] [address]Dr. Bhavani Barragan Creatinine [Mass/Vol] 1.38 mg/dL Critically high 0.55-1.02 [facility] Comment on above: Performed By: #### C MP ####[facility] Eoqucjlonw[address] [place], [place] [address]Dr. Bhavani Barragan EGFR-AF MOZAMBICAN 44 mL/min/1.73m2 Critically low >=60 [facility] Comment on above: Performed By: #### C MP ####[facility] Dokewuvbyo422[address] [place], [place] [address]Dr. Bhavani Barragan EGFR-NON AF MOZAMBICAN 37 mL/min/1.73m2 Critically low >=60 [facility] Comment on above: Performed By: #### C MP ####[facility] Sgatlodkcj168[address] [place], [place] [address]Dr. Bhavani Barragan Globulin (S) [Mass/Vol] 4.1 g/dL Normal [facility] Comment on above: Performed By: #### C MP ####[facility] Pxycghssdd000[address] [place], [place] [address]Dr. Bhavani Barragan Glucose [Mass/Vol] 109 mg/dL Critically high 74-106 T [facility] Comment on above: Performed By: #### C MP ####[facility] Hlqoqcodif[address] [place], [place] [address]Dr. Bhavani Barragan Potassium [Moles/Vol] 4.0 mmol/L Normal 3.5-5.1 [facility] Comment on above: Performed By: #### C MP ####[facility] Mrsvenuwxg448[address] [place], [place] [address]Dr. Bhavani Barragan Protein [Mass/Vol] 6.1 g/dL Critically low 6.4-8.2 Th e [facility] Comment on above: Performed By: #### C MP ####[facility] Kxfzkmkd[address] [place], [place] [address]Dr. Bhavani Barragan Sodium [Moles/Vol] 137 mmol/L Normal 136-145 [facility] Comment on above: Performed By: #### C MP ####[facility] Fhwnskwgnh[address] [place], [place] [address]Dr. Bhavani Barragan Urea nitrogen [Mass/Vol] 22.0 mg/dL Critically high 7.0-18.0 [facility] Comment on above: Performed By: #### C MP ####[facility] Ohcfrbygfz[address] [place], [place] [address]Dr. Bhavani Barragan Urea nitrogen/Creatinine [Mass ratio] 15.9 mg/mg Normal [facility] Comment on above: Performed By: #### C MP ####[facility] Etbagkwuvl[address] [place], [place] [address]Dr. Bhavani Barragan PROTIMEon 03-30-2022 INR Coag (PPP) [Relative time] 1.28 {INR} Normal [facility] Comment on above: Performed By: #### P T, PTT ####[facility] Vogavyawsj[address] [place], [place] [address]Dr. Bhavani Barragan INR GUIDELINES SEE BELOW Normal [facility] Comment on above: Result Comment: WALKER RED INR: 2.0 - 3.0 CONDITIONS NOT LISTED BELOW 2.5 - 3.5 FOR PROSTHETIC HEART VALVE REPLACEMENT 2.5 - 3.5 RECURRENT THROMBOSIS Performed By: #### P T, PTT ####[facility] Zngcdgicvy[address] [place], [place] [address]Dr. Bhavani Barragan PT Coag (PPP) [Time] 13.6 s Critically high 9.0-11.6 [facility] Comment on above: Performed By: #### P T, PTT ####[facility] Bnwyfbhcxb7[address] [place], [place] [address]Dr. Bhavani Barragan PTTon 03-30-2022 aPTT Coag (Bld) [Time] 34.9 s Normal 22.3-36.2 The [facility] Comment on above: Performed By: #### P T, PTT ####[facility] Ezevfdhefy[address] [place], [place] [address]Dr. Bhavani Barragan US SINGLE QUAD RT UPPERon US SINGLE QUAD RT UPPER Normal The [facility] AMMONIAon 03-29-2022 Ammonia (P) [Moles/Vol] 17 umol/L Normal 11-32 The [facility] Comment on above: Performed By: #### A MM ####[facility] Weeqiibtnn32[address] [place], [place] [address]Dr. Bhavani Barragan CBC W MANUAL DIFFon 03-29-20 ANISOCYTOSIS 2+ Normal The [facility] Comment on above: Performed By: #### C OMID ####[facility] Neplhxrwaz8[address] [place], [place] [address]Dr. Bhavani Laurel ATYPICAL LYMPH # Normal [facility] Comment on above: Performed By: #### C OMID ####[facility] Mnbnzznlyc[address] [place], [place] [address]Dr. Jayceeroxi Laurel ATYPICAL LYMPH % Normal [facility] Comment on above: Performed By: #### C BCJERSON ####[facility] Dsrsactydq404[address] [place], [place] [address]Dr. Bhavani Barragan BAND # 1.2 103/ul Critically high 0.0-0.3 [facility] Comment on above: Performed By: #### C BCJERSON ####[facility] Bvzeqmtqzd726[address] [place], [place] [address]Dr. Bhavani Barragan BAND % 4 % Normal 0-5 The [facility] Comment on above: Performed By: #### C BCMAN ####[facility] Yzxhegvxgz77[address] [place], [place] [address]Dr. Bhavani Barragan BASOM # 0.00 103/ul Normal 0.00-0.10 The [facility] Comment on above: Performed By: #### C OMID ####[facility] [address] [place] [address]Dr. Bhavani Barragan BASOM % 0.0 % Critically low 0.2-2.0 The [facility] Comment on above: Performed By: #### C BCJERSON ####[facility] [address]wvbjhkq[address] [place] [address]Dr. Bhavani Barragan BLAST # Normal [facility] Comment on above: Performed By: #### C OMID ####[facility] Tecszsyxfc[address] [place] [address]Dr. Bhavani Barragan BLAST % Normal The [facility] Comment on above: Performed By: #### C OMID ####[facility] Mqobpkdcoi[address] [place], [place] [address]Dr. Bhavani Barragan CORRECTED WBC Normal 4.0-11.0 The [facility] Comment on above: Performed By: #### C OMID ####[facility] Ddmqpoyoer8154[address] [place], [place] [address]Dr. Bhavani Barragan EOS # 0.00 103/ul Normal 0.00-0.70 The [facility] Comment on above: Performed By: #### C OMID ####[facility] Bdyjogqiev67[address] [place], [place] [address]Dr. Bhavani Barragan EOS% 0.0 % Critically low 0.9-7.0 The [facility] Comment on above: Performed By: #### C OMID ####[facility] Kywwirssxz[address] [place], [place] [address]Dr. Bhavani Barragan HCT 41.4 % Normal 36.0-48.0 The [facility] Comment on above: Performed By: #### C OMID ####[facility] Mochdyprjj[address] [place], [place] [address]Dr. Bhavani Barragan HGB 12.6 g/dl Normal 12.0-16.0 The [facility] Comment on above: Performed By: #### C OMID ####[facility] Gqbfpkybtc6[address] [place], [place] [address]Dr. Bhavani Barragan LYMPHM # 0.62 103/ul Critically low 1.20-3.80 [facility] Comment on above: Performed By: #### C OMID ####[facility] [address]xb[address] [place] [address]Dr. Bhavani Barragan LYMPHM% 2.0 % Critically low 20.5-60.0 The [facility] Comment on above: Performed By: #### C OMID ####[facility] Xpxtpujoen[address] [place] [address]Dr. Bhavani Barragan MCH 29.6 pg Normal 26.7-34.0 The [facility] Comment on above: Performed By: #### C OMID ####[facility] [address]jzpizpj[address] [place], [place] [address]Dr. Bhavani Barragan MCHC 30.4 g/dl Normal 29.9-35.2 The [facility] Comment on above: Performed By: #### Jany ANNE ####[facility] Nmhvgkqmug[address] [place], [place] [address]Dr. Bhavani Barragan MCV 97.4 fL Normal 81.0-99.0 The [facility] Comment on above: Performed By: #### Jany ANNE ####[facility] Nchchbtvry[address] [place], [place] [address]Dr. Bhavani Barragan METAMYELOCYTE # Normal [facility] Comment on above: Performed By: #### Jany ANNE ####[facility] [address]um[address]zlh[address] [place] [address]Dr. Bhavani Barragan METAMYELOCYTE % Normal [facility] Comment on above: Performed By: #### C OMID ####[facility] [address]xscpezzih[address] [place] [address]Dr. Bhavani Barragan MONOM# 0.93 103/ul Critically high 0.30-0.80 [facility] Comment on above: Performed By: #### C OMID ####[facility] Tmfzvvectv6964 [place] [address]Dr. Bhavani Barragan MONOM% 3.0 % Normal 1.7-12.0 The [facility] Comment on above: Performed By: #### C OMID ####[facility] [address]ox[address] [place], [place] [address]Et. Bhavani Barragan MPV 9.7 fL Normal 9.5-13.5 [facility] Comment on above: Performed By: #### C OMID ####[facility] [address]qcc[address] [place], [place] [address]Ft. Bhavani Barragan MYELOCYTE # Normal [facility] Comment on above: Performed By: #### C OMID ####[facility] [address] [place], [place] [address]Gf. Bhavani Barragan MYELOCYTE % Normal [facility] Comment on above: Performed By: #### C OMID ####[facility] Dnswjjiouo4[address] [place] [id number]. Bhavani Barragan NRBC Normal [facility] Comment on above: Performed By: #### C OMID ####[facility] Ir[address]xqzaob87[address] [place] [id number]. Bhavani Barragan PLT 362 103/ul Normal 150-450 [facility] Comment on above: Performed By: #### C OMID ####[facility] Y[address]afmzizlo[address] [place] [id number]. Bhavani Barragan RBC 4.25 106/ul Normal 4.20-5.40 [facility] Comment on above: Performed By: #### C OMID ####[facility] Fhdliwylxr58[address] [place] [phone]. Bhavani Barragan RDW 17.2 % Critically high 11.0-15.0 [facility] Comment on above: Performed By: #### C OMID ####[facility] V[address]hjops[address]67 [place], [place] [address]Ub. Bhavani Barragan SEG # 28.12 103/ul Critically high 1.40-6.50 [facility] Comment on above: Performed By: #### C OMID ####[facility] [address]rsfhcz5737 [place] [id number]. Bhavani Barragan SEG % 91.0 % Critically high 43.0-75.0 [facility] Comment on above: Performed By: #### C BCMAN ####[facility] Retle[address]oclo[address] [place] [id number]. Bhavani Barragan WBC 30.9 103/ul Critically high 4.0-11.0 [facility] Comment on above: Result Comment: repe ated Performed By: #### C BCMAN ####[facility] Knp[address]kmbyf[address] [place] [id number]. Bhavani Barragan CT ABD/PELV W CONon 03-29-[address] ABD/PELV W CON Normal [facility] POINT OF CARE GLUCOSEon 03-18 Glucose [Mass/Vol] 102 mg/dL Normal 74-106 [facility] Comment on above: Performed By: #### P OCGLUC ####[facility] Ztsdpsxvcv6543 [place] [address]Dr. Bhavani Barragan Glucose [Mass/Vol] 100 mg/dL Normal 74-106 [facility] Comment on above: Performed By: #### P OCGLUC ####[facility] Qiatocrbas4302 [place] [address]Dr. Bhavani Barragan Glucose [Mass/Vol] 132 mg/dL Critically high 74-106 [facility] Comment on above: Performed By: #### P OCGLUC ####[facility] Yjnkyyzrsa55[address] [place] [address]Dr. Bhavani Barragan Glucose [Mass/Vol] 130 mg/dL Critically high 74-106 [facility] Comment on above: Performed By: #### P OCGLUC ####[facility] Sioissywxe[address] [place] [address]Dr. Bhavani Laurel PROF 14(COMP METB)on 022 Albumin [Mass/Vol] 2.1 g/dL Critically low 3.4-5.0 [facility] Comment on above: Performed By: #### C MP ####[facility] Tw[address]gmkara[address] [place] [address]Dr. Bhavani Barragan Albumin/Globulin [Mass ratio] 0.6 {ratio} Normal [facility] Comment on above: Performed By: #### C MP ####[facility] Cpiqgdcjfz3583 [place] [phone]. Bhavani Barragan ALP [Catalytic activity/Vol] 277 U/L Critically high 46-116 [facility] Comment on above: Performed By: #### C MP ####[facility] Iucykmcbrp2570 [place] [phone]. Bhavani Barragan ALT [Catalytic activity/Vol] 90 U/L Critically high 14-59 [facility] Comment on above: Performed By: #### C MP ####[facility] Fboiixjmqo1700 [place] [phone]. Bhavani Barragan Anion gap [Moles/Vol] 13.1 mmol/L Normal [facility] Comment on above: Performed By: #### C MP ####[facility] Iacfvjtefb3449 [place] [address]Dr. Bhavani Barragan AST [Catalytic activity/Vol] 56 U/L Critically high 15-37 [facility] Comment on above: Performed By: #### C MP ####[facility] Fwrqkbzcni[address] [place], [place] [address]Dr. Bhavani Barragan Bilirubin [Mass/Vol] 4.1 mg/dL Critically high 0.2-1.0 [facility] Comment on above: Performed By: #### C MP ####[facility] Ukkauktjto[address] [place], [place] [address]Dr. Bhavani Barragan Calcium [Mass/Vol] 7.9 mg/dL Critically low 8.5-10.1 [facility] Comment on above: Performed By: #### C MP ####[facility] Zjtrxmqips9419 [place] [address]Dr. Bhavani Barragan Chloride [Moles/Vol] 103 mmol/L Normal 98-107 [facility] Comment on above: Performed By: #### C MP ####[facility] Xlzwouulue5799 [place] [address]Dr. Bhavani Barragan CO2 [Moles/Vol] 25.9 mmol/L Normal 21.0-32.0 [facility] Comment on above: Performed By: #### C MP ####[facility] Iemhzpmxao8732 [place] [phone]. Bhavani Barragan Creatinine [Mass/Vol] 1.32 mg/dL Critically high 0.55-1.02 [facility] Comment on above: Performed By: #### C MP ####[facility] Wsxtgcaiiv2622 [place] [phone]. Bhavani Barragan EGFR-AF MOZAMBICAN 47 mL/min/1.73m2 Critically low >=60 [facility] Comment on above: Performed By: #### C MP ####[facility] Auiggrkuyd4447 [place] [phone]. Bhavani Barragan EGFR-NON AF MOZAMBICAN 39 mL/min/1.73m2 Critically low >=60 [facility] Comment on above: Performed By: #### C MP ####[facility] Mehcsigbjr0688 [place] [phone]. Bhavani Barragan Globulin (S) [Mass/Vol] 3.7 g/dL Normal [facility] Comment on above: Performed By: #### C MP ####[facility] Hpituvvgxv2915 [place] [phone]. Bhavani Barragan Glucose [Mass/Vol] 133 mg/dL Critically high 74-106 [facility] Comment on above: Performed By: #### C MP ####[facility] Lkqplhdbsh0111 [place] [phone]. Bhavani Barragan Potassium [Moles/Vol] 4.0 mmol/L Normal 3.5-5.1 [facility] Comment on above: Performed By: #### C MP ####[facility] Iqpzeidmug1080 [place] [phone]. Bhavani Barragan Protein [Mass/Vol] 5.8 g/dL Critically low 6.4-8.2 Th [facility] Comment on above: Performed By: #### C MP ####[facility] Mopswqklei0185 [place] [phone]. Bhavani Barragan Sodium [Moles/Vol] 138 mmol/L Normal 136-145 [facility] Comment on above: Performed By: #### C MP ####[facility] Lvlsthevrr6068 [place] [address]Dr. Bhavani Barragan Urea nitrogen [Mass/Vol] 19.0 mg/dL Critically high 7.0-18.0 [facility] Comment on above: Performed By: #### C MP ####[facility] Mbgqdeckll9741 [place] [address]Dr. Bhavani Barragan Urea nitrogen/Creatinine [Mass ratio] 14.4 mg/mg Normal [facility] Comment on above: Performed By: #### C MP ####[facility] Ylmdelcfgj[address] [place], [place] [address]Dr. Bhavani Barragan PROTIMEon 03-29-2022 INR Coag (PPP) [Relative time] 1.33 {INR} Normal [facility] Comment on above: Performed By: #### P T, PTT ####[facility] Ttezznweio377[address] [place], [place] [address]Dr. Jayceeroxi Barragan INR GUIDELINES SEE BELOW Normal [facility] Comment on above: Result Comment: WALKER RED INR: 2.0 - 3.0 CONDITIONS NOT LISTED BELOW 2.5 - 3.5 FOR PROSTHETIC HEART VALVE REPLACEMENT 2.5 - 3.5 RECURRENT THROMBOSIS Performed By: #### P T, PTT ####[facility] Bzrcczhzwq9[address] [place], [place] [address]Dr. Bhavani Barragan PT Coag (PPP) [Time] 14.1 s Critically high 9.0-11.6 [facility] Comment on above: Performed By: #### P T, PTT ####[facility] Icxdmchder[address] [place], [place] [address]Dr. Bhavani Barragan PTTon 03-29-2022 aPTT Coag (Bld) [Time] 36.0 s Normal 22.3-36.2 [facility] Comment on above: Performed By: #### P T, PTT ####[facility] Vwgaioftym12[address] [place], [place] [address]Dr. Bhavani Barragan AMMONIAon 03-28-2022 Ammonia (P) [Moles/Vol] 22 umol/L Normal -32 [facility] Comment on above: Performed By: #### A MM ####[facility] Khhplrgomb9[address] [place] [address]Dr. Bhavani Barragan CBC W MANUAL DIFFon 03-28-20 22 ANISOCYTOSIS 2+ Normal [facility] Comment on above: Performed By: #### C BCMAN ####[facility] Vkxoyuxcto7914 [place] [address]Dr. Bhavani Barragan ATYPICAL LYMPH # Normal [facility] Comment on above: Performed By: #### C BCMAN ####[facility] Mxuadjrocw9390 [place] [address]Dr. Bhavani Barragan ATYPICAL LYMPH % Normal [facility] Comment on above: Performed By: #### C BCMAN ####[facility] Piqisldduo[address] [place], [place] [address]Dr. Bhavani Barragan BAND # 0.8 103/ul Critically high 0.0-0.3 [facility] Comment on above: Performed By: #### C BCMAN ####[facility] Zibvwaangh[address] [place], [place] [address]Dr. Bhavani Barragan BAND % 3 % Normal 0-5 [facility] Comment on above: Performed By: #### C BCJERSON ####[facility] Usqlmoetcu34[address] [place], [place] [address]Dr. Bhavani Barragan BASOM # 0.00 103/ul Normal 0.00-0.10 [facility] Comment on above: Performed By: #### C BCMAN ####[facility] Dubuablrmi[address] [place], [place] [address]Dr. Bhavani Barragan BASOM % 0.0 % Critically low 0.2-2.0 [facility] Comment on above: Performed By: #### C BCMAN ####[facility] Xygupxwzxn8[address] [place], [place] [address]Dr. Bhavani Barragan BLAST # Normal [facility] Comment on above: Performed By: #### C BCMAN ####[facility] Cpowbyrxua8[address] [place], [place] [address]Dr. Bhavani Barragan BLAST % Normal [facility] Comment on above: Performed By: #### C BCMAN ####[facility] Fgnsygldpd0892 [place], [place] [address]Ib. Bhavani Barragan CORRECTED WBC Normal 4.0-11.0 [facility] Comment on above: Performed By: #### C OMID ####[facility] Zpmqhpezxm3300 [place] [phone]. Bhavani Barragan EOS # 0.00 103/ul Normal 0.00-0.70 [facility] Comment on above: Performed By: #### C OMID ####[facility] Fygeltewxs3777 [place] [phone]. Bhavani Barragan EOS% 0.0 % Critically low 0.9-7.0 [facility] Comment on above: Performed By: #### C OMID ####[facility] Nypjsihxbd4797 [place] [phone]. Bhavani Barragan HCT 38.9 % Normal 36.0-48.0 [facility] Comment on above: Performed By: #### C OMID ####[facility] Tvzgieqeyq4578 [place] [phone]. Bhavani Barragan HGB 11.9 g/dl Critically low 12.0-16.0 [facility] Comment on above: Performed By: #### C OMID ####[facility] Mctczylxgm6089 [place] [phone]. Bhavani Barragan LYMPHM # 0.78 103/ul Critically low 1.20-3.80 [facility] Comment on above: Performed By: #### C OMID ####[facility] Gsvauhikjr2021 [place] [phone]. Bhavani Barragan LYMPHM% 3.0 % Critically low 20.5-60.0 [facility] Comment on above: Performed By: #### C OMID ####[facility] Pediznpilu4488 [place] [phone]. Bhavani Barragan MCH 29.8 pg Normal 26.7-34.0 [facility] Comment on above: Performed By: #### C OMID ####[facility] Xwfgasrc[address] [place], [place] [address]Dr. Bhavani Barragan MCHC 30.6 g/dl Normal 29.9-35.2 [facility] Comment on above: Performed By: #### C OMID ####[facility] Prwijfqyqg5372 [place] [phone]. Bhavani Barragan MCV 97.3 fL Normal 81.0-99.0 [facility] Comment on above: Performed By: #### C OMID ####[facility] Gglgevxzlb9802 [place] [phone]. Bhavani Barragan METAMYELOCYTE # Normal [facility] Comment on above: Performed By: #### C OMID ####[facility] Znvxscdmeu8094 [place] [phone]. Bhavani Barragan METAMYELOCYTE % Normal [facility] Comment on above: Performed By: #### C OMID ####[facility] Mpuhzuunfi8496 [place] [phone]. Bhavani Barragan MONOM# 0.78 103/ul Normal 0.30-0.80 [facility] Comment on above: Performed By: #### C OMID ####[facility] Yojtnxsxcc4439 [place] [phone]. Bhavani Barragan MONOM% 3.0 % Normal 1.7-12.0 [facility] Comment on above: Performed By: #### C OMID ####[facility] Bxslmntqup1795 [place] [phone]. Bhavani Barragan MPV 10.6 fL Normal 9.5-13.5 [facility] Comment on above: Performed By: #### C OMID ####[facility] Hkpfhabelg2743 [place] [phone]. Bhavani Barragan MYELOCYTE # Normal [facility] Comment on above: Performed By: #### C OMID ####[facility] Dzfvvohmep2384 [place] [phone]. Bhavani Barragan MYELOCYTE % Normal [facility] Comment on above: Performed By: #### C OMID ####[facility] [address]jb[address]hzr[address] [place], [place] [address]Dr. Bhavani Barragan NRBC Normal [facility] Comment on above: Performed By: #### C OMID ####[facility] Fwjrezkxyj4296 [place], [place] [address]Is. Bhavani Barragan PLT 402 103/ul Normal 150-450 [facility] Comment on above: Performed By: #### C OMID ####[facility] Nqzredifxo9302 [place], [place] [address]TyLydia Bhavani Laurel RBC 4.00 106/ul Critically low 4.20-5.40 [facility] Comment on above: Performed By: #### C OMID ####[facility] Tinocgolbb7091 [place], [place] [address]Sl. Bhavani Laurel RDW 16.7 % Critically high 11.0-15.0 [facility] Comment on above: Performed By: #### C OMID ####[facility] Evprlbawqf0066 [place], [place] [address]BpLydia Barragan SEG # 23.66 103/ul Critically high 1.40-6.50 [facility] Comment on above: Performed By: #### C OMID ####[facility] Shcczujocc0828 [place], [place] [address]Xx. Bhavani Barragan SEG % 91.0 % Critically high 43.0-75.0 [facility] Comment on above: Performed By: #### C OMID ####[facility] Xqxwhnkdpn7172 [place], [place] [address]CrLydia Bhavani Laurel WBC 26.0 103/ul Critically high 4.0-11.0 [facility] Comment on above: Performed By: #### C OMID ####[facility] Dcgbpoapvb1003 [place], [place] [address]WgLydia Barragan PROF 14(COMP METB)on 022 Albumin [Mass/Vol] 2.1 g/dL Critically low 3.4-5.0 [facility] Comment on above: Performed By: #### C MP ####[facility] Kufsgnppbt3547 [place], [place] [address]RuLydia Barragan Albumin/Globulin [Mass ratio] 0.6 {ratio} Normal [facility] Comment on above: Performed By: #### C MP ####[facility] Jngrceccwm5[address] [place] [address]Dr. Bhavani Barragan ALP [Catalytic activity/Vol] 235 U/L Critically high 46-116 [facility] Comment on above: Performed By: #### C MP ####[facility] Gnlzpbojgk39[address] [place] [address]Dr. Bhavani Laurel ALT [Catalytic activity/Vol] 112 U/L Critically high 14-59 [facility] Comment on above: Performed By: #### C MP ####[facility] Gsobqsmfit6398 [place] [address]Dr. Bhavani Barragan Anion gap [Moles/Vol] 12.3 mmol/L Normal [facility] Comment on above: Performed By: #### C MP ####[facility] Munbfvnrzl67[address] [place] [address]Dr. Bhavani Barragan AST [Catalytic activity/Vol] 57 U/L Critically high 15-37 [facility] Comment on above: Performed By: #### C MP ####[facility] Pflexcmdqw8616 [place] [address]Dr. Jayceeroxi Laurel Bilirubin [Mass/Vol] 1.6 mg/dL Critically high 0.2-1.0 [facility] Comment on above: Performed By: #### C MP ####[facility] Wqccojfvga1572 [place] [address]Dr. Bhavani Barragan Calcium [Mass/Vol] 7.6 mg/dL Critically low 8.5-10.1 [facility] Comment on above: Performed By: #### C MP ####[facility] Gzcwlsrrbr7784 [place] [address]Dr. Bhavani Barragan Chloride [Moles/Vol] 104 mmol/L Normal 98-107 [facility] Comment on above: Performed By: #### C MP ####[facility] Joybnnhbsy4939 [place] [address]Dr. Bhavani Barragan CO2 [Moles/Vol] 25.5 mmol/L Normal 21.0-32.0 [facility] Comment on above: Performed By: #### C MP ####[facility] Hpseorbimg8399 [place] [id number]. Bhavani Barragan Creatinine [Mass/Vol] 1.28 mg/dL Critically high 0.55-1.02 [facility] Comment on above: Performed By: #### C MP ####[facility] Gtdycuhsds2195 [place] [phone]. Bhavani Barragan EGFR-AF MOZAMBICAN 48 mL/min/1.73m2 Critically low >=60 [facility] Comment on above: Performed By: #### C MP ####[facility] Vdwpbyixdd4091 [place] [phone]. Bhavani Barragan EGFR-NON AF MOZAMBICAN 40 mL/min/1.73m2 Critically low >=60 [facility] Comment on above: Performed By: #### C MP ####[facility] Lujqdmvuck4425 [place] [phone]. Bhavani Barragan Globulin (S) [Mass/Vol] 3.7 g/dL Normal [facility] Comment on above: Performed By: #### C MP ####[facility] Sfywrbummb2653 [place] [phone]. Bhavani Barragan Glucose [Mass/Vol] 69 mg/dL Critically low 74-106 [facility] Comment on above: Performed By: #### C MP ####[facility] Twqrubelkk9137 [place] [phone]. Bhavani Barragan Potassium [Moles/Vol] 3.8 mmol/L Normal 3.5-5.1 [facility] Comment on above: Performed By: #### C MP ####[facility] Tkxellxict4752 [place] [phone]. Bhavani Barragan Protein [Mass/Vol] 5.8 g/dL Critically low 6.4-8.2 [facility] Comment on above: Performed By: #### C MP ####[facility] Eeqkceugya5483 [place] [phone]. Bhavani Barragan Sodium [Moles/Vol] 138 mmol/L Normal 136-145 [facility] Comment on above: Performed By: #### C MP ####[facility] Dpauiliono8137 [place] [address]Dr. Bhavani Barragan Urea nitrogen [Mass/Vol] 18.0 mg/dL Normal 7.0-18.0 [facility] Comment on above: Performed By: #### C MP ####[facility] Hcoxfzioic[address] [place], [place] [address]Dr. Bhavani Barragan Urea nitrogen/Creatinine [Mass ratio] 14.1 mg/mg Normal [facility] Comment on above: Performed By: #### C MP ####[facility] Zdijhcgbsz[address] [place], [place] [address]Dr. Bhavani Barragan PROTIMEon 03-28-2022 INR Coag (PPP) [Relative time] 1.38 {INR} Normal [facility] Comment on above: Performed By: #### P T, PTT ####[facility] Tshatmvrui[address] [place], [place] [address]Dr. Bhavani Barragan INR GUIDELINES SEE BELOW Normal [facility] Comment on above: Result Comment: WALKER RED INR: 2.0 - 3.0 CONDITIONS NOT LISTED BELOW 2.5 - 3.5 FOR PROSTHETIC HEART VALVE REPLACEMENT 2.5 - 3.5 RECURRENT THROMBOSIS Performed By: #### P T, PTT ####[facility] Wiwkrabpyl869[address] [place], [place] [address]Dr. Bhavani Barragan PT Coag (PPP) [Time] 14.6 s Critically high 9.0-11.6 [facility] Comment on above: Performed By: #### P T, PTT ####[facility] Fxryvdbozr[address] [place], [place] [address]Dr. Bhavani Barragan PTTon 03-28-2022 aPTT Coag (Bld) [Time] 36.6 s Critically high 22.3-36.2 [facility] Comment on above: Performed By: #### P T, PTT ####[facility] Oiupcbwmdu[address] [place], [place] [address]Dr. Bhavani Barragan RESPIRATORY PANEL PLUSon Adenovirus Not detected Normal NOT DETECTED [facility] Comment on above: Performed By: #### R SPLUS ####[facility] Speucudxbn9101 [place] [address]Dr. Bhavani Barragan B. Parapertusis Not detected Normal NOT DETECTED [facility] Comment on above: Performed By: #### R SPLUS ####[facility] Ykqtpyblgn0424 [place] [address]Dr. Bhavani Barragan B. Pertussis Not detected Normal NOT DETECTED [facility] Comment on above: Performed By: #### R SPLUS ####[facility] Omuxfssfrq64[address] [place], [place] [address]Dr. Bhavani Barragan Chlamydia Pneumoniae Not detected Normal NOT DETECTED [facility] Comment on above: Performed By: #### R SPLUS ####[facility] Nsfjxzmnhl14[address] [place], [place] [address]Dr. Bhavani Barragan Coronavirus 229E Not detected Normal NOT DETECTED [facility] Comment on above: Performed By: #### R SPLUS ####[facility] Uzapprqwjq206[address] [place], [place] [address]Dr. roxi Barragan Coronavirus HKU1 Not detected Normal NOT DETECTED [facility] Comment on above: Performed By: #### R SPLUS ####[facility] Serkexonrb2[address] [place], [place] [address]Dr. Bhavani Barragan Coronavirus NL63 Not detected Normal NOT DETECTED [facility] Comment on above: Performed By: #### R SPLUS ####[facility] Yqznxzqale68[address] [place], [place] [address]Dr. Bhavani Barragan Coronavirus OC43 Not detected Normal NOT DETECTED [facility] Comment on above: Performed By: #### R SPLUS ####[facility] Ovfscdppkw06[address] [place], [place] [address]Dr. Bhavani Barragan Influenza A H1 2009 Not detected Normal NOT DETECTED [facility] Comment on above: Performed By: #### R SPLUS ####[facility] Brhmtorkxg293[address] [place], [place] [address]Dr. Bhavani Barragan Influenza A H3 Not detected Normal NOT DETECTED [facility] Comment on above: Performed By: #### R SPLUS ####[facility] Lueqgptfaq6250 [place] [address]Dr. Bhavani Barragan Influenza B Not detected Normal NOT DETECTED [facility] Comment on above: Performed By: #### R SPLUS ####[facility] Aokjimlmiy3273 [place] [address]Dr. Bhavani Barragan Metapneumovirus Not detected Normal NOT DETECTED [facility] Comment on above: Performed By: #### R SPLUS ####[facility] Aciprdwbkp9514 [place] [address]Dr. Jayceeroxi Barragan Mycoplas. Pneumoniae Not detected Normal NOT DETECTED [facility] Comment on above: Performed By: #### R SPLUS ####[facility] Qzqyaapdut004[address] [place], [place] [address]Dr. Bhavani Barragan Parainfluenza 1 Not detected Normal NOT DETECTED [facility] Comment on above: Performed By: #### R SPLUS ####[facility] Jfpzpcwunx355[address] [place], [place] [address]Dr. Bhavani Barragan Parainfluenza 2 Not detected Normal NOT DETECTED [facility] Comment on above: Performed By: #### R SPLUS ####[facility] Ghbuuctmcg[address] [place], [place] [address]Dr. Bhavani Barragan Parainfluenza 3 Not detected Normal NOT DETECTED [facility] Comment on above: Performed By: #### R SPLUS ####[facility] Nvnguukqct259[address] [place], [place] [address]Dr. Jayceeroxi Barragan Parainfluenza 4 Not detected Normal NOT DETECTED [facility] Comment on above: Performed By: #### R SPLUS ####[facility] Xroppvayhb[address] [place], [place] [address]Dr. Bhavani Barragan Rhino/Enterovirus Not detected Normal NOT DETECTED [facility] Comment on above: Performed By: #### R SPLUS ####[facility] Vmqdbpfquc423[address] [place], [place] [address]Dr. Bhavani Barragan RP2 Header 1 RESPIRATORY PANEL: VIRUSES Normal [facility] Comment on above: Performed By: #### R SPLUS ####[facility] Zhhfdrmzwq8631 [place] [address]Dr. Bhavani Barragan RP2 Header 2 RESPIRATORY PANEL: BACTERIA Normal [facility] Comment on above: Performed By: #### R SPLUS ####[facility] Zvvhpcpktc[address] [place], [place] [address]Dr. Bhavani Barragan RSV Not detected Normal NOT DETECTED [facility] Comment on above: Performed By: #### R SPLUS ####[facility] Mxebkqkico40[address] [place], [place] [address]Dr. Bhavani Barragan SARS-CoV-2 (COVID-19) RNA MATTHEW+probe Ql (Unsp spec) Not detected Normal NOT DETECTED [facility] Comment on above: Performed By: #### R SPLUS ####[facility] Cbrpcpvalc[address] [place], [place] [address]Dr. Bhavani Barragan AMMONIAon 03-27-2022 Ammonia (P) [Moles/Vol] 22 umol/L Normal 11-32 [facility] Comment on above: Performed By: #### A MM ####[facility] Qhxmruipfl01[address] [place], [place] [address]Dr. Bhavani Barragan BLOOD GASES BTYon 03-27-2022 02 MODE NASAL CANNULA Normal [facility] Comment on above: Performed By: #### A BG ####[facility] Dkjvlzpxhf[address] [place], [place] [address]Dr. Bhavani Barragan ALLENS TEST Positive Normal [facility] Comment on above: Performed By: #### A BG ####[facility] Uigblvyyin388[address] [place], [place] [address]Dr. Bhavani Barragan Base excess Calc (Bld) [Moles/Vol] 1.4 mmol/L Normal -2.0-2.0 [facility] Comment on above: Performed By: #### A BG ####[facility] Nzguvjnkww4[address] [place], [place] [address]Dr. Bhavani Barragan BIPAP PRESSURE Normal [facility] Comment on above: Performed By: #### A BG ####[facility] Rfkcndrjnm[address] [place], [place] [address]Dr. Bhavani Barragan CO2 [Moles/Vol] 50.8 mmol/L Critically high 23.0-28.0 [facility] Comment on above: Performed By: #### A BG ####[facility] Pbmslwaivh1373 [place] [address]Dr. Bhavani Barragan CPAP Normal [facility] Comment on above: Performed By: #### A BG ####[facility] Trmgksgcsl3713 [place] [address]Dr. Bhavani Barragan FIO2 Normal [facility] Comment on above: Performed By: #### A BG ####[facility] Awyplwkfde[address] [place], [place] [address]Dr. Bhavani Barragan HCO3 (Bld) [Moles/Vol] 25.6 mmol/L Normal 22.0-26.0 [facility] Comment on above: Performed By: #### A BG ####[facility] Kguvdblgnb[address] [place], [place] [address]Dr. Bhavani Barragan LPM 5 Normal [facility] Comment on above: Performed By: #### A BG ####[facility] Xnjfsnlmjy4[address] [place], [place] [address]Dr. Bhavani Barragan MINUTE VOLUME Normal [facility] Comment on above: Performed By: #### A BG ####[facility] Gniihhrryr17[address] [place], [place] [address]Dr. Bhavani Barragan Oxygen (Bld) [Partial pressure] 56.6 mm[Hg] Critically low 80.0-100.0 [facility] Comment on above: Performed By: #### A BG ####[facility] Jaqxeoynyy3[address] [place], [place] [address]Dr. Bhavani Barragan Oxygen saturation in Blood 91.3 % Critically low 95.0-100.0 [facility] Comment on above: Performed By: #### A BG ####[facility] Ltbcqxkrdd2007[address] [place], [place] [address]Dr. Bhavani Barragan PCO2 36.1 mmHg Normal 35.0-45.0 [facility] Comment on above: Performed By: #### A BG ####[facility] Ukshdvvgxg2621 [place] [address]Dr. Bhavani Barragan PEEP Normal [facility] Comment on above: Performed By: #### A BG ####[facility] Nxpmabeldo9923 [place] [address]Dr. Bhavani Barragan pH (Bld) 7.454 [pH] Critically high 7.350-7.450 [facility] Comment on above: Performed By: #### A BG ####[facility] Fmmnjytlzl4439 [place] [address]Dr. Bhavani Barragan PIP [facility] Comment on above: Performed By: #### A BG ####[facility] Axkfafnfaf[address] [place], [place] [address]Dr. Bhavani Barragan PS [facility] Comment on above: Performed By: #### A BG ####[facility] Gvmbsoxwxt[address] [place], [place] [address]Dr. Bhavani Barragan PUNCTURE SITE LR Normal [facility] Comment on above: Performed By: #### A BG ####[facility] Ukxvdfjtwo67[address] [place], [place] [address]Dr. Bhavani Barragan RATE [facility] Comment on above: Performed By: #### A BG ####[facility] Tcuibalkrz[address] [place], [place] [address]Dr. Bhavani Barragan VENT MODE [facility] Comment on above: Performed By: #### A BG ####[facility] Xobupqmxjy[address] [place] [address]Dr. Bhavani Barragan [place] [facility] Comment on above: Performed By: #### A BG ####[facility] Gwyoxtbpvz6389 [place] [address]Dr. Bhavani Barragan CBC W MANUAL DIFFon 03-27-20 22 ANISOCYTOSIS 2+ [facility] Comment on above: Performed By: #### C BCMAN ####[facility] Ykzrwlcugf8592 [place] [address]Dr. Bhavani Barragan ATYPICAL LYMPH # Normal [facility] Comment on above: Performed By: #### C BCJERSON ####[facility] Hqlufqcnjb5268 [place] [phone]. Bhavani Barragan ATYPICAL LYMPH % Normal [facility] Comment on above: Performed By: #### C BCMAN ####[facility] Zajzcytgtz7479 [place] [phone]. Bhavani Barragan BAND # 1.5 103/ul Critically high 0.0-0.3 [facility] Comment on above: Performed By: #### C BCMAN ####[facility] Llrfukxcdm1282 [place] [address]Dr. Jayceelan Barragan BAND % 5 % Normal 0-5 [facility] Comment on above: Performed By: #### C OMID ####[facility] Etlewnfqpl5405 [place] [address]Dr. Bhavani Barragan BASOM # 0.00 103/ul Normal 0.00-0.10 [facility] Comment on above: Performed By: #### C OMID ####[facility] Zjuptzhwgg7900 [place] [address]Dr. Bhavani Barragan BASOM % 0.0 % Critically low 0.2-2.0 [facility] Comment on above: Performed By: #### C OMID ####[facility] Mrvcpdtdtr[address] [place], [place] [address]Dr. Bhavani Barragan BLAST # Normal [facility] Comment on above: Performed By: #### C OMID ####[facility] Uavdwetlkz8500 [place] [address]Dr. Bhavani Barragan BLAST % Normal [facility] Comment on above: Performed By: #### C BCJERSON ####[facility] Gundbbwncw2365 [place] [address]Dr. Bhavani Barragan CORRECTED WBC Normal 4.0-11.0 [facility] Comment on above: Performed By: #### C OMID ####[facility] Sxcnvcwoeh0493 [place] [address]Dr. Bhavani Barragan EOS # 0.00 103/ul Normal 0.00-0.70 [facility] Comment on above: Performed By: #### C BCJERSON ####[facility] Ssseuaymxz7295 [place], [place] [address]Xb. Bhavani Barragan EOS% 0.0 % Critically low 0.9-7.0 [facility] Comment on above: Performed By: #### Jany ANNE ####[facility] Oivezlootc7746 [place] [phone]. Bhavani Barragan HCT 41.4 % Normal 36.0-48.0 [facility] Comment on above: Performed By: #### Jany ANNE ####[facility] Vizwhyzrls7750 [place] [phone]. Bhavani Barragan HGB 13.0 g/dl Normal 12.0-16.0 [facility] Comment on above: Performed By: #### Jany ANNE ####[facility] Mdkjzivxsv5525 [place] [phone]. Bhavani Barragan LYMPHM # 0.60 103/ul Critically low 1.20-3.80 [facility] Comment on above: Performed By: #### Jany ANNE ####[facility] Zzviqcriyz6100 [place] [phone]. Bhavani Barragan LYMPHM% 2.0 % Critically low 20.5-60.0 [facility] Comment on above: Performed By: #### Jany ANNE ####[facility] Ombkzclgkq1965 [place] [phone]. Bhavani Barragan MCH 30.1 pg Normal 26.7-34.0 [facility] Comment on above: Performed By: #### Jany ANNE ####[facility] Wnucnrwhac5559 [place] [phone]. Bhavani Barragan MCHC 31.4 g/dl Normal 29.9-35.2 [facility] Comment on above: Performed By: #### Jany ANNE ####[facility] Gfwoelxyur5603 [place] [phone]. Bhavani Barragan MCV 95.8 fL Normal 81.0-99.0 [facility] Comment on above: Performed By: #### Jany ANNE ####[facility] Jbjxfzcacy4613 [place] [phone]. Bhavani Barragan METAMYELOCYTE # Normal [facility] Comment on above: Performed By: #### C OMID ####[facility] Qpejxwanzk0277 [place], [place] [address]Wz. Bhavani Barragan METAMYELOCYTE % Normal [facility] Comment on above: Performed By: #### C OMID ####[facility] Xhfjcqojzi8344 [place] [phone]. Bhavani Barragan MONOM# 0.91 103/ul Critically high 0.30-0.80 [facility] Comment on above: Performed By: #### C OMID ####[facility] Qqxcidiuoi2927 [place] [phone]. Bhavani Barragan MONOM% 3.0 % Normal 1.7-12.0 [facility] Comment on above: Performed By: #### C OMID ####[facility] Awkikmppqf1336 [place] [phone]. Bhavani Barragan MPV 10.4 fL Normal 9.5-13.5 [facility] Comment on above: Performed By: #### C OMID ####[facility] Wbfapjcqau1658 [place] [phone]. Bhavani Barragan MYELOCYTE # Normal [facility] Comment on above: Performed By: #### C OMID ####[facility] Hvxpwhlrdv0178 [place] [phone]. Bhavani Barragan MYELOCYTE % Normal [facility] Comment on above: Performed By: #### C OMID ####[facility] Vbwqtrhsng7473 [place] [phone]. Bhavani Barragan NRBC Normal [facility] Comment on above: Performed By: #### C OMID ####[facility] Pwyplpujky8068 [place] [phone]. Bhavani Barragan PLT 431 103/ul Normal 150-450 [facility] Comment on above: Performed By: #### C OMID ####[facility] Tksvhpzklr3261 [place] [phone]. Jayceeroxi Laurel RBC 4.32 106/ul Normal 4.20-5.40 [facility] Comment on above: Performed By: #### C BCMAN ####[facility] Hycsxwaykg3877 [place] [phone]. Bhavani Barragan RDW 16.4 % Critically high 11.0-15.0 [facility] Comment on above: Performed By: #### C BCMAN ####[facility] Buynlrwsrr7308 [place] [phone]. Bhavani Barragna SEG # 27.18 103/ul Critically high 1.40-6.50 [facility] Comment on above: Performed By: #### C BCMAN ####[facility] Dncmmtlhhd1629 [place] [phone]. Bhavani Barragan SEG % 90.0 % Critically high 43.0-75.0 [facility] Comment on above: Performed By: #### C BCMAN ####[facility] Dxdotyvwps7371 [place] [address]Dr. Bhavani Barragan WBC 30.2 103/ul Critically high 4.0-11.0 [facility] Comment on above: Performed By: #### C BCMAN ####[facility] Sexcsnjmvp6308 [place] [address]Dr. Bhavani Barragan CTA CHEST WO W CONon 03-27- 022 CTA CHEST WO W CON Normal [facility] POINT OF CARE GLUCOSEon 05 0 Glucose [Mass/Vol] 94 mg/dL Normal 74-106 [facility] Comment on above: Performed By: #### P OCGLUC ####[facility] Kjrqrezpwx[address] [place] [address]Dr. Bhavani Barragan Glucose [Mass/Vol] 131 mg/dL Critically high 74-106 [facility] Comment on above: Performed By: #### P OCGLUC ####[facility] Pzmyiaawtp4490 [place] [address]Dr. Bhavani Barragan Glucose [Mass/Vol] 134 mg/dL Critically high 74-106 [facility] Comment on above: Performed By: #### P OCGLUC ####[facility] Tdxwvanlug[address] [place] [address]Dr. Bhavani Barragan PROF 14(COMP METB)on 022 Albumin [Mass/Vol] 2.4 g/dL Critically low 3.4-5.0 [facility] Comment on above: Performed By: #### C MP ####[facility] Mydwmxobcw35[address] [place] [address]Dr. Bhavani Barragan Albumin/Globulin [Mass ratio] 0.6 {ratio} Normal [facility] Comment on above: Performed By: #### C MP ####[facility] Lyzbpopnvg6956 [place] [address]Dr. Bhavani Barragan ALP [Catalytic activity/Vol] 306 U/L Critically high 46-116 [facility] Comment on above: Performed By: #### C MP ####[facility] Vuqbvngzdt2464 [place] [address]Dr. Bhavani Barragan ALT [Catalytic activity/Vol] 152 U/L Critically high 14-59 [facility] Comment on above: Performed By: #### C MP ####[facility] [address]kdpk[address]ktp[address] [place], [place] [address]Dr. Bhavani Barragan Anion gap [Moles/Vol] 8.1 mmol/L Normal [facility] Comment on above: Performed By: #### C MP ####[facility] Rbtdcmdpxd[address] [place], [place] [address]Dr. Bhavani Barragan AST [Catalytic activity/Vol] 98 U/L Critically high 15-37 [facility] Comment on above: Performed By: #### C MP ####[facility] Frfpiagcyr[address] [place] [address]Dr. Bhavani Barragan Bilirubin [Mass/Vol] 2.7 mg/dL Critically high 0.2-1.0 [facility] Comment on above: Performed By: #### C MP ####[facility] Eaxjtgmmum[address] [place] [address]Dr. Bhavani Barragan Calcium [Mass/Vol] 7.4 mg/dL Critically low 8.5-10.1 [facility] Comment on above: Performed By: #### C MP ####[facility] Dhsvlkcjap8[address] [place] [id number]. Bhavani Barragan Chloride [Moles/Vol] 103 mmol/L Normal 98-107 [facility] Comment on above: Performed By: #### C MP ####[facility] Wzggwudcbw59[address] [place] [address]Dr. Bhavani Barragan CO2 [Moles/Vol] 24.7 mmol/L Normal 21.0-32.0 [facility] Comment on above: Performed By: #### C MP ####[facility] Npldaydhsi8045 [place] [address]Dr. Bhvaani Barragan Creatinine [Mass/Vol] 1.07 mg/dL Critically high 0.55-1.02 [facility] Comment on above: Performed By: #### C MP ####[facility] Zercaiopmo[address] [place], [place] [address]Dr. Bhavani Laurel EGFR-AF MOZAMBICAN 60 mL/min/1.73m2 Normal >=60 [facility] Comment on above: Performed By: #### C MP ####[facility] Aufxdwoxtt[address] [place], [place] [address]Dr. Bhavani Laurel EGFR-NON AF MOZAMBICAN 49 mL/min/1.73m2 Critically low >=60 [facility] Comment on above: Performed By: #### C MP ####[facility] Ibkcrczoyy26[address] [place] [address]Dr. Bhavani Laurel Globulin (S) [Mass/Vol] 3.8 g/dL Normal [facility] Comment on above: Performed By: #### C MP ####[facility] Cqyjvvxfjt6179 [place] [address]Dr. Bhavani Laurel Glucose [Mass/Vol] 140 mg/dL Critically high 74-106 [facility] Comment on above: Performed By: #### C MP ####[facility] Gkbvcomphy2465 [place] [address]Dr. Bhavani Laurel Potassium [Moles/Vol] 3.8 mmol/L Normal 3.5-5.1 [facility] Comment on above: Performed By: #### C MP ####[facility] Jnarykvgod7[address] [place], [place] [address]Dr. Bhavani Barragan Protein [Mass/Vol] 6.2 g/dL Critically low 6.4-8.2 Th [facility] Comment on above: Performed By: #### C MP ####[facility] Shlkcykoxj[address] [place], [place] [address]Dr. Bhavani Barragan Sodium [Moles/Vol] 132 mmol/L Critically low 136-145 [facility] Comment on above: Performed By: #### C MP ####[facility] Ilmwjytcxh25[address] [place], [place] [address]Dr. Bhavani Barragan Urea nitrogen [Mass/Vol] 15.0 mg/dL Normal 7.0-18.0 [facility] Comment on above: Performed By: #### C MP ####[facility] Nccqqcekaa[address] [place], [place] [address]Dr. Bhavani Barragan Urea nitrogen/Creatinine [Mass ratio] 14.0 mg/mg Normal [facility] Comment on above: Performed By: #### C MP ####[facility] Ovmqcisxzm93[address] [place], [place] [address]Dr. Bhavani Barragan PROTIMEon 03-27-2022 INR Coag (PPP) [Relative time] 1.37 {INR} Normal [facility] Comment on above: Performed By: #### P T, PTT ####[facility] Xpmyxeiucc245[address] [place], [place] [address]Dr. Bhavani Barragan INR GUIDELINES SEE BELOW Normal [facility] Comment on above: Result Comment: WALKER RED INR: 2.0 - 3.0 CONDITIONS NOT LISTED BELOW 2.5 - 3.5 FOR PROSTHETIC HEART VALVE REPLACEMENT 2.5 - 3.5 RECURRENT THROMBOSIS Performed By: #### P T, PTT ####[facility] Nvycojezkk[address] [place], [place] [address]Dr. Bhavani Barragan PT Coag (PPP) [Time] 14.5 s Critically high 9.0-11.6 [facility] Comment on above: Performed By: #### P T, PTT ####[facility] Irxqnmnjjf25[address] [place], [place] [address]Dr. Bhavani Barragan PTTon 03-27-2022 aPTT Coag (Bld) [Time] 34.2 s Normal 22.3-36.2 [facility] Comment on above: Performed By: #### P T, PTT ####[facility] Ggkyykgqlq[address] [place], [place] [address]Dr. Bhavani Barragan XR ABD FLAT_UPon 03-27-2022 XR ABD FLAT_UP Normal [facility] XR CHEST 1 Von 03-27-2022 XR CHEST 1 V Normal [facility] AMMONIAon 03-26-2022 Ammonia (P) [Moles/Vol] 26 umol/L Normal 11-32 [facility] Comment on above: Performed By: #### A MM ####[facility] Mzgcbsdmft[address] [place], [place] [address]Dr. Bhavani Barragan CBC AUTO DIFFon 03-26-2022 BASO # 0.2 103/ul Critically high 0.0-0.1 [facility] Comment on above: Performed By: #### C BC ####[facility] Yhevfufrmd235[address] [place], [place] [address]Dr. Jayceeroxi Barragan Basophils/100 WBC (Bld) 0.8 % Normal 0.2-2.0 [facility] Comment on above: Performed By: #### C BC ####[facility] Rxrubowpdh[address] [place], [place] [address]Dr. Bhavani Laurel EO # 0.0 103/ul Normal 0.0-0.7 [facility] Comment on above: Performed By: #### C BC ####[facility] Gxdojipoyz[address] [place], [place] [address]Dr. Jayceeroxi Barragan Eosinophils/100 WBC (Bld) 0.1 % Critically low 0.9-7.0 [facility] Comment on above: Performed By: #### C BC ####[facility] Fchzrjmbnn248[address] [place], [place] [address]Dr. Bhavani Laurel Erythrocyte distribution width (RBC) [Ratio] 16.0 % Critically high 11.0-15.0 [facility] Comment on above: Performed By: #### C BC ####[facility] Gzdygcutkv[address] [place] [address]Dr. Bhavani Barragan Hematocrit (Bld) [Volume fraction] 43.9 % Normal 36.0-48.0 [facility] Comment on above: Performed By: #### C BC ####[facility] Sz[address]fqppuss35[address] [place] [address]Dr. Bhavani Barragan Hemoglobin (Bld) [Mass/Vol] 13.6 g/dL Normal 12.0-16.0 [facility] Comment on above: Performed By: #### C BC ####[facility] Oihxobkggn[address] [place] [address]Dr. Bhavani Barragan IG # 0.78 10e3/ul Critically high 0.00-0.03 [facility] Comment on above: Performed By: #### C BC ####[facility] Eprqfefedl14[address] [place] [address]Dr. Bhavani Barragan IG % 3.5 % Critically high 0.0-0.5 [facility] Comment on above: Performed By: #### C BC ####[facility] Mmxufgktmo95[address] [place] [address]Dr. Bhavani Barragan LYMPH # 0.9 103/ul Critically low 1.2-3.8 [facility] Comment on above: Performed By: #### C BC ####[facility] Wsriujrfhr34[address] [place] [address]Dr. Bhavani Barragan Lymphocytes/100 WBC (Bld) 3.9 % Critically low 20.5-60.0 [facility] Comment on above: Performed By: #### C BC ####[facility] Beorgosgav4[address] [place] [address]Dr. Bhavani Barragan MANUAL DIFF REQ NO Normal [facility] Comment on above: Performed By: #### C BC ####[facility] Vkvizdrxdi[address] [place], [place] [address]Dr. Jayceeroxi Barragan MCH (RBC) [Entitic mass] 30.0 pg Normal 26.7-34.0 [facility] Comment on above: Performed By: #### C BC ####[facility] F[address]hfliutb75[address] [place] [id number]. Bhavani Barragan MCHC (RBC) [Mass/Vol] 31.0 g/dL Normal 29.9-35.2 [facility] Comment on above: Performed By: #### C BC ####[facility] Ssmotmmywm3096 [place] [id number]. Bhavani Barragan MCV (RBC) [Entitic vol] 96.9 fL Normal 81.0-99.0 [facility] Comment on above: Performed By: #### C BC ####[facility] Ujzvuffbkq4259 [place] [id number]. Bhavani Barragan MONO # 0.6 103/ul Normal 0.3-0.8 [facility] Comment on above: Performed By: #### C BC ####[facility] Bkebrarjhq2744 [place] [phone]. Jayceeroxi Barragan Monocytes/100 WBC (Bld) 2.7 % Normal 1.7-12.0 [facility] Comment on above: Performed By: #### C BC ####[facility] Fuzrflijhz6670 [place] [phone]. Bhavani Barragan NEUT # 20.1 103/ul Critically high 1.4-6.5 [facility] Comment on above: Performed By: #### C BC ####[facility] Eikuafynau5073 [place] [phone]. Bhavani Laurel Neutrophils/100 WBC (Bld) 89.0 % Critically high 43.0-75.0 [facility] Comment on above: Performed By: #### C BC ####[facility] Zfjvvnvhnw1037 [place] [id number]. Bhavani Laurel Platelet mean volume (Bld) [Entitic vol] 9.7 fL Normal 9.5-13.5 [facility] Comment on above: Performed By: #### C BC ####[facility] Vrsjdcudvm1036 [place] [phone]. Jayceeroxi Barragan PLT 434 103/ul Normal 150-450 [facility] Comment on above: Performed By: #### C BC ####[facility] Zeewopiyqj3687 [place] [phone]. Bhavani Barragan RBC 4.53 106/ul Normal 4.20-5.40 [facility] Comment on above: Performed By: #### C BC ####[facility] Tjiuzlbgqf1704 [place] [address]Dr. Bhavani Barragan WBC 22.6 103/ul Critically high 4.0-11.0 [facility] Comment on above: Performed By: #### C BC ####[facility] Loriognoco450[address] [place] [address]Dr. Bhavani Barragan ECHOCARDIO M/2D COMPLETEon 0 03-26-2022 ECHOCARDIO M/2D COMPLETE Normal [facility] POINT OF CARE GLUCOSEon Glucose [Mass/Vol] 166 mg/dL Critically high 74-106 [facility] Comment on above: Performed By: #### P OCGLUC ####[facility] Dsisezkfsp5463 [place] [address]Dr. Bhavani Barragan Glucose [Mass/Vol] 148 mg/dL Critically high 74-106 [facility] Comment on above: Performed By: #### P OCGLUC ####[facility] Bfzreybovd[address] [place], [place] [address]Dr. Bhavani Barragan PROF 14(COMP METB)on 022 Albumin [Mass/Vol] 2.4 g/dL Critically low 3.4-5.0 [facility] Comment on above: Performed By: #### C MP ####[facility] Ppxhbgeahc5656 [place] [address]Dr. Bhavani Barragan Albumin/Globulin [Mass ratio] 0.6 {ratio} Normal [facility] Comment on above: Performed By: #### C MP ####[facility] Vvvbktpacp9200 [place] [address]Dr. Bhavani Barragan ALP [Catalytic activity/Vol] 310 U/L Critically high 46-116 [facility] Comment on above: Performed By: #### C MP ####[facility] Otrofemlks2243 [place] [address]Dr. Bhavani Barragan ALT [Catalytic activity/Vol] 194 U/L Critically high 14-59 [facility] Comment on above: Performed By: #### C MP ####[facility] Jvshtjmpvo7081 [place] [address]Dr. Jayceeroxi Laurel Anion gap [Moles/Vol] 8.2 mmol/L Normal [facility] Comment on above: Performed By: #### C MP ####[facility] Wsazdfskjo[address] [place], [place] [address]Dr. Bhavani Laurel AST [Catalytic activity/Vol] 133 U/L Critically high 15-37 [facility] Comment on above: Performed By: #### C MP ####[facility] Urlahupliy[address] [place], [place] [address]Dr. Bhavani Barragan Bilirubin [Mass/Vol] 2.8 mg/dL Critically high 0.2-1.0 [facility] Comment on above: Performed By: #### C MP ####[facility] Vpwuddjviq46[address] [place], [place] [address]Dr. Bhavani Barragna Calcium [Mass/Vol] 7.7 mg/dL Critically low 8.5-10.1 [facility] Comment on above: Performed By: #### C MP ####[facility] Fnqfguewdh[address] [place], [place] [address]Dr. Bhavani Barragan Chloride [Moles/Vol] 105 mmol/L Normal 98-107 [facility] Comment on above: Performed By: #### C MP ####[facility] Lxdezfryno10[address] [place], [place] [address]Dr. Bhavani Barragan CO2 [Moles/Vol] 25.8 mmol/L Normal 21.0-32.0 [facility] Comment on above: Performed By: #### C MP ####[facility] Gbmewhzwmp9170[address] [place], [place] [address]Dr. Bhavani Barragan Creatinine [Mass/Vol] 1.07 mg/dL Critically high 0.55-1.02 [facility] Comment on above: Performed By: #### C MP ####[facility] Kquenbrjjd065[address] [place], [place] [address]Dr. Bhavani Barragan EGFR-AF MOZAMBICAN 60 mL/min/1.73m2 Normal >=60 [facility] Comment on above: Performed By: #### C MP ####[facility] Dwwfkeeibg7659 [place] [address]Dr. Bhavani Laurel EGFR-NON AF MOZAMBICAN 49 mL/min/1.73m2 Critically low >=60 [facility] Comment on above: Performed By: #### C MP ####[facility] Ulzfnqscqp2689 [place] [address]Dr. Bhavani Laurel Globulin (S) [Mass/Vol] 3.8 g/dL Normal [facility] Comment on above: Performed By: #### C MP ####[facility] Ocmywjazkf[address] [place], [place] [address]Dr. Bhavani Barragan Glucose [Mass/Vol] 90 mg/dL Normal 74-106 [facility] Comment on above: Performed By: #### C MP ####[facility] Bdbxamiiht6[address] [place], [place] [address]Dr. Bhavani Barragan Potassium [Moles/Vol] 4.0 mmol/L Normal 3.5-5.1 [facility] Comment on above: Performed By: #### C MP ####[facility] Rnaqymaajq125[address] [place], [place] [address]Dr. Jayceeroxi Laurel Protein [Mass/Vol] 6.2 g/dL Critically low 6.4-8.2 [facility] Comment on above: Performed By: #### C MP ####[facility] Tvhssdxtpy[address] [place], [place] [address]Dr. Bhavani Barragan Sodium [Moles/Vol] 135 mmol/L Critically low 136-145 [facility] Comment on above: Performed By: #### C MP ####[facility] Mjmdsfkgbt978[address] [place], [place] [address]Dr. Bhavani Barragan Urea nitrogen [Mass/Vol] 14.0 mg/dL Normal 7.0-18.0 [facility] Comment on above: Performed By: #### C MP ####[facility] Itovmjcmvj576[address] [place], [place] [address]Dr. Bhavani Barragan Urea nitrogen/Creatinine [Mass ratio] 13.1 mg/mg Normal [facility] Comment on above: Performed By: #### C MP ####[facility] Vfpwhmtdpb[address] [place], [place] [address]DrLydia Barragan PROTIMEon 03-26-2022 INR Coag (PPP) [Relative time] 1.31 {INR} Normal [facility] Comment on above: Performed By: #### P T, PTT ####[facility] Ajyvybyhfl[address] [place], [place] [address]DrLydia Barragan INR GUIDELINES SEE BELOW Normal [facility] Comment on above: Result Comment: WALKER RED INR: 2.0 - 3.0 CONDITIONS NOT LISTED BELOW 2.5 - 3.5 FOR PROSTHETIC HEART VALVE REPLACEMENT 2.5 - 3.5 RECURRENT THROMBOSIS Performed By: #### P T, PTT ####[facility] Gkwpjmsgje[address] [place], [place] [address]Dr. Bhavani Barragan PT Coag (PPP) [Time] 13.9 s Critically high 9.0-11.6 [facility] Comment on above: Performed By: #### P T, PTT ####[facility] V[address]jczm[address] [place], [place] [address]DrLydia Barragan PTTon 03-26-2022 aPTT Coag (Bld) [Time] 32.8 s Normal 22.3-36.2 [facility] Comment on above: Performed By: #### P T, PTT ####[facility] Uhyzboggqq[address] [place], [place] [address]Dr. Bhavani Barragan AMMONIAon 03-25-2022 Ammonia (P) [Moles/Vol] 17 umol/L Normal 11-32 [facility] Comment on above: Performed By: #### A MM ####[facility] Xgjrdscrmw[address] [place], [place] [address]DrLydia Barragan CBC W MANUAL DIFFon 03-25-20 22 ATYPICAL LYMPH # Normal [facility] Comment on above: Performed By: #### C BCMAN ####[facility] Cmdtrcaulo[address] [place], [place] [address]Dr. Yilan Barragan ATYPICAL LYMPH % Normal [facility] Comment on above: Performed By: #### C BCMAN ####[facility] Tltuzibpzm8106 [place] [phone]. Bhavani Barragan BAND # 0.3 103/ul Normal 0.0-0.3 [facility] Comment on above: Performed By: #### C BCMAN ####[facility] Nnvbpjjlwl2389 [place] [address]Dr. Jayceelan Barragan BAND % 1 % Normal 0-5 [facility] Comment on above: Performed By: #### C BCJERSON ####[facility] Ujkbpfqpwq8781 [place] [address]Dr. Bhavani Barragan BASOM # 0.27 103/ul Critically high 0.00-0.10 [facility] Comment on above: Performed By: #### C BCJERSON ####[facility] Rwstrnwyft4815 [place] [address]Dr. Bhavani Barragan BASOM % 1.0 % Normal 0.2-2.0 [facility] Comment on above: Performed By: #### C BCJERSON ####[facility] Mnomjigrou[address] [place] [address]Dr. Bhavani Barragan BLAST # Normal [facility] Comment on above: Performed By: #### C BCJERSON ####[facility] Mybrwuxnqh68[address] [place] [phone]. Bhavani Barragan BLAST % Normal [facility] Comment on above: Performed By: #### C BCJERSON ####[facility] Mvgebgaeob4554 [place] [address]Dr. Bhavani Barragan CORRECTED WBC Normal 4.0-11.0 [facility] Comment on above: Performed By: #### C OMID ####[facility] Jvwiddtwco2416 [place] [address]Dr. Bhavani Barragan EOS # 0.00 103/ul Normal 0.00-0.70 [facility] Comment on above: Performed By: #### C BCJERSON ####[facility] Jmjdjgdgwj[address] [place], [place] [address]Dr. Bhavani Barragan EOS% 0.0 % Critically low 0.9-7.0 [facility] Comment on above: Performed By: #### C OMID ####[facility] Sosgsyquxw3364 [place] [address]Dr. Bhavani Barragan HCT 41.6 % Normal 36.0-48.0 [facility] Comment on above: Performed By: #### C OMID ####[facility] Epctqapvqj3461 [place] [phone]. Bhavani Barragan HGB 12.8 g/dl Normal 12.0-16.0 [facility] Comment on above: Performed By: #### C OMID ####[facility] Prtmlprecb6370 [place] [address]Dr. Bhavani Barragan LYMPHM # 0.80 103/ul Critically low 1.20-3.80 [facility] Comment on above: Performed By: #### Jany ANNE ####[facility] Wykqzapwsh82[address] [place] [address]Dr. Bhavani Barragan LYMPHM% 3.0 % Critically low 20.5-60.0 [facility] Comment on above: Performed By: #### Jany ANNE ####[facility] [address]xlhusvv[address] [place], [place] [address]Dr. Bhavani Barragan MCH 29.4 pg Normal 26.7-34.0 [facility] Comment on above: Performed By: #### Jany ANNE ####[facility] Odkqqhgiak7[address] [place] [address]Dr. Bhavani Barragan MCHC 30.8 g/dl Normal 29.9-35.2 [facility] Comment on above: Performed By: #### Jany ANNE ####[facility] Ebsfcoakle[address] [place] [phone]. Bhavani Barragan MCV 95.6 fL Normal 81.0-99.0 [facility] Comment on above: Performed By: #### Jany ANNE ####[facility] Chnanejynh2[address] [place] [address]Dr. Bhavani Barragan METAMYELOCYTE # Normal [facility] Comment on above: Performed By: #### C OMID ####[facility] [address]heywbkj34[address] [place], [place] [address]Yr. Bhavani Barragan METAMYELOCYTE % Normal [facility] Comment on above: Performed By: #### C OMID ####[facility] Swdvhblnxd1406 [place], [place] [address]Nw. Bhavani Barragan MONOM# 0.80 103/ul Normal 0.30-0.80 [facility] Comment on above: Performed By: #### Jany ANNE ####[facility] Iexfzonxpl3749 [place], [place] [address]Im. Bhavani Barragan MONOM% 3.0 % Normal 1.7-12.0 [facility] Comment on above: Performed By: #### Jany ANNE ####[facility] Tgqaqoeeyg4617 [place] [phone]. Bhavani Barragan MPV 9.9 fL Normal 9.5-13.5 [facility] Comment on above: Performed By: #### Jany ANNE ####[facility] Sjhykxiddb3993 [place] [phone]. Bhavani Barragan MYELOCYTE # Normal [facility] Comment on above: Performed By: #### Jany ANNE ####[facility] Snppzroyue4[address] [place] [phone]. Bhavani Barragan MYELOCYTE % Normal [facility] Comment on above: Performed By: #### Jany ANNE ####[facility] Augungigvi8570 [place] [phone]. Bhavani Barragan NRBC Normal [facility] Comment on above: Performed By: #### Jany ANNE ####[facility] Edeklbckmc3047 [place], [place] [address]Ft. Bhavani Barragan PLT 448 103/ul Normal 150-450 [facility] Comment on above: Performed By: #### Jany ANNE ####[facility] [address]qalmqanc9302 [place], [place] [address]Hm. Bhavani Barragan RBC 4.35 106/ul Normal 4.20-5.40 [facility] Comment on above: Performed By: #### Jany ANNE ####[facility] Xrwzqxbnxx6796 [place], [place] [address]Qk. Bhavani Barragan RDW 16.0 % Critically high 11.0-15.0 The [facility] Comment on above: Performed By: #### C BCMAN ####[facility] Mpbdfeennj4182 [place], [place] [address]Se. Bhavani Barragan SEG # 24.38 103/ul Critically high 1.40-6.50 The [facility] Comment on above: Performed By: #### C BCMAN ####[facility] Zmoxgvngmu3424 [place] [id number]. Bhavani Barragan SEG % 92.0 % Critically high 43.0-75.0 [facility] Comment on above: Performed By: #### C OMID ####[facility] Bosibjsxex3511 [place] [id number]. Bhavani Barragan WBC 26.5 103/ul Critically high 4.0-11.0 [facility] Comment on above: Performed By: #### C BCJERSON ####[facility] Nbcbtvvpnp9143 [place] [phone]. Bhavani Barragan DIFFERENTIAL MANUALon 2021 ATYPICAL LYMPH # Normal [facility] Comment on above: Performed By: #### D IFF ####[facility] Rppibjsnmq5007 [place] [id number]. Bhavani Barragan ATYPICAL LYMPH % Normal [facility] Comment on above: Performed By: #### D IFF ####[facility] Seynzassiy8238 [place] [id number]. Bhavani Barragan BAND # 0.3 103/ul Normal 0.0-0.3 [facility] Comment on above: Performed By: #### D IFF ####[facility] Obctdouywa34[address] [place] [address]Dr. Bhavani Barragan BAND % 1 % Normal 0-5 The [facility] Comment on above: Performed By: #### D IFF ####[facility] Iktyswcffq2970 [place] [phone]. Bhavani Barragan BASOM # 0.27 103/ul Critically high 0.00-0.10 [facility] Comment on above: Performed By: #### D IFF ####[facility] Qlxhwvhzhu3826 [place] [address]Dr. Bhavani Barragan BASOM % 1.0 % Normal 0.2-2.0 [facility] Comment on above: Performed By: #### D IFF ####[facility] Odfodkqqcf6920 [place] [address]Dr. Bhavani Barragan BLAST # Normal [facility] Comment on above: Performed By: #### D IFF ####[facility] Fhqeueuzmq1252 [place] [address]Dr. Bhavani Barragan BLAST % Normal [facility] Comment on above: Performed By: #### D IFF ####[facility] Nlafqlbykw[address] [place], [place] [address]Dr. Bhavani Barragan CORRECTED WBC Normal 4.0-11.0 The [facility] Comment on above: Performed By: #### D IFF ####[facility] Ounwsajrhu[address] [place], [place] [address]Dr. Bhavani Barragan EOS # 0.00 103/ul Normal 0.00-0.70 The [facility] Comment on above: Performed By: #### D IFF ####[facility] Chtjagrkkq[address] [place], [place] [address]Dr. Bhavani Barragan EOS% 0.0 % Critically low 0.9-7.0 The [facility] Comment on above: Performed By: #### D IFF ####[facility] Tipqspsyis18[address] [place], [place] [address]Dr. Bhavani Barragan LYMPHM # 0.80 103/ul Critically low 1.20-3.80 [facility] Comment on above: Performed By: #### D IFF ####[facility] Oklblrfdvg[address] [place], [place] [address]Dr. Bhavani Barragan LYMPHM% 3.0 % Critically low 20.5-60.0 The [facility] Comment on above: Performed By: #### D IFF ####[facility] Iujxhlalur[address] [place], [place] [address]Dr. Bhavani Barragan METAMYELOCYTE # Normal [facility] Comment on above: Performed By: #### D IFF ####[facility] Qyxqxtfexb3916 [place] [phone]. Bhavani Barragan METAMYELOCYTE % Normal [facility] Comment on above: Performed By: #### D IFF ####[facility] Kbcphejyrl0692 [place] [phone]. Bhavani Barragan MONOM# 0.80 103/ul Normal 0.30-0.80 [facility] Comment on above: Performed By: #### D IFF ####[facility] Qnuxoqrcar4783 [place] [address]Dr. Bhavani Barragan MONOM% 3.0 % Normal 1.7-12.0 [facility] Comment on above: Performed By: #### D IFF ####[facility] Vgdcmfxlre[address] [place], [place] [address]Dr. Bhavani Barragan MYELOCYTE # Normal [facility] Comment on above: Performed By: #### D IFF ####[facility] Ucaosfadjs[address] [place], [place] [address]Dr. Bhavani Barragan MYELOCYTE % Normal [facility] Comment on above: Performed By: #### D IFF ####[facility] Wfngqgpwnt1212 [place] [address]Dr. Bhavani Barragan NRBC Normal [facility] Comment on above: Performed By: #### D IFF ####[facility] Mngpsskmwc8738 [place] [address]Dr. Bhavani Barragan SEG # 24.38 103/ul Critically high 1.40-6.50 [facility] Comment on above: Performed By: #### D IFF ####[facility] Wdyckdsnhq[address] [place], [place] [address]Dr. Bhavani Barragan SEG % 92.0 % Critically high 43.0-75.0 [facility] Comment on above: Performed By: #### D IFF ####[facility] Tqahpx[address]df[address] [place], [place] [address]Dr. Bhavani Barragan WBC 26.5 103/ul Critically high 4.0-11.0 [facility] Comment on above: Performed By: #### D IFF ####[facility] Wmmtornxhc7177 [place] [address]Dr. Bhavani Barragan POINT OF CARE GLUCOSEon 05- Glucose [Mass/Vol] 120 mg/dL Critically high 74-106 [facility] Comment on above: Performed By: #### P OCGLUC ####[facility] Wojmepundu1378 [place] [address]Dr. Bhavani Barragan Glucose [Mass/Vol] 98 mg/dL Normal 74-106 [facility] Comment on above: Performed By: #### P OCGLUC ####[facility] Uiignqynib3573 [place] [address]Dr. Bhavani Barragan PROF 14(COMP METB)on 022 Albumin [Mass/Vol] 2.3 g/dL Critically low 3.4-5.0 [facility] Comment on above: Performed By: #### C MP ####[facility] Gwivexgdmm7949 [place] [address]Dr. Bhavani Barragan Albumin/Globulin [Mass ratio] 0.6 {ratio} Normal [facility] Comment on above: Performed By: #### C MP ####[facility] Xinymwwews8142 [place] [address]Dr. Bhavani Barragan ALP [Catalytic activity/Vol] 309 U/L Critically high 46-116 [facility] Comment on above: Performed By: #### C MP ####[facility] Zuohozmktb2904 [place] [address]Dr. Bhavani Barragan ALT [Catalytic activity/Vol] 163 U/L Critically high 14-59 [facility] Comment on above: Performed By: #### C MP ####[facility] Somdkxkhlf9680 [place] [address]Dr. Bhavani Barragan Anion gap [Moles/Vol] 12.2 mmol/L Normal [facility] Comment on above: Performed By: #### C MP ####[facility] Nfbymxysir0262 [place] [phone]. Bhavani Barragan AST [Catalytic activity/Vol] 103 U/L Critically high 15-37 [facility] Comment on above: Performed By: #### C MP ####[facility] Vxceznshpl7904 [place] [phone]. Bhavani Barragan Bilirubin [Mass/Vol] 1.5 mg/dL Critically high 0.2-1.0 The [facility] Comment on above: Performed By: #### C MP ####[facility] Difvkjfnod6333 [place] [address]Dr. hBavani Barragan Calcium [Mass/Vol] 7.3 mg/dL Critically low 8.5-10.1 Th e [facility] Comment on above: Performed By: #### C MP ####[facility] Kzpobryjlq[address] [place], [place] [address]Dr. Bhavani Barragan Chloride [Moles/Vol] 107 mmol/L Normal 98-107 [facility] Comment on above: Performed By: #### C MP ####[facility] Yuzfgdjuqy[address] [place], [place] [address]Dr. Bhavani Barragan CO2 [Moles/Vol] 21.9 mmol/L Normal 21.0-32.0 [facility] Comment on above: Performed By: #### C MP ####[facility] Vpmvniuhto[address] [place], [place] [address]Dr. Bhavani Barragan Creatinine [Mass/Vol] 1.22 mg/dL Critically high 0.55-1.02 [facility] Comment on above: Performed By: #### C MP ####[facility] Vxpyxgtyfy4703 [place] [phone]. Bhavani Barragan EGFR-AF MOZAMBICAN 51 mL/min/1.73m2 Critically low >=60 The [facility] Comment on above: Performed By: #### C MP ####[facility] Iodqygzwsc7568 [place] [phone]. Bhavani Barragan EGFR-NON AF MOZAMBICAN 42 mL/min/1.73m2 Critically low >=60 The [facility] Comment on above: Performed By: #### C MP ####[facility] Ecneiiiend3496 [place] [phone]. Bhavani Barragan Globulin (S) [Mass/Vol] 3.7 g/dL Normal [facility] Comment on above: Performed By: #### C MP ####[facility] Aifmnbcpeg6430 [place] [address]Dr. Bhavani Barragan Glucose [Mass/Vol] 165 mg/dL Critically high 74-106 [facility] Comment on above: Performed By: #### C MP ####[facility] Wlsemvlchc7457 [place] [address]Dr. Bhavani Braragan Potassium [Moles/Vol] 4.1 mmol/L Normal 3.5-5.1 [facility] Comment on above: Performed By: #### C MP ####[facility] Zizndnqssm[address] [place], [place] [address]Dr. Bhavani Barragan Protein [Mass/Vol] 6.0 g/dL Critically low 6.4-8.2 Th [facility] Comment on above: Performed By: #### C MP ####[facility] Xucnjwihyx[address] [place], [place] [address]Dr. Bhavani Barragan Sodium [Moles/Vol] 137 mmol/L Normal 136-145 [facility] Comment on above: Performed By: #### C MP ####[facility] Zixdaozyrb406[address] [place], [place] [address]Dr. Bhavani Barragan Urea nitrogen [Mass/Vol] 18.0 mg/dL Normal 7.0-18.0 [facility] Comment on above: Performed By: #### C MP ####[facility] Ypshyyaohq7[address] [place], [place] [address]Dr. Bhavani Barragan Urea nitrogen/Creatinine [Mass ratio] 14.8 mg/mg Normal [facility] Comment on above: Performed By: #### C MP ####[facility] Bxsmdntvjs[address] [place], [place] [address]Dr. Bhavani Barragan PROTIMEon 03-25-2022 INR Coag (PPP) [Relative time] 1.18 {INR} Normal [facility] Comment on above: Performed By: #### P TT, PT ####[facility] Zmsydhpezw8362 [place] [address]Dr. Bhavani Barragan INR GUIDELINES SEE BELOW Normal The [facility] Comment on above: Result Comment: WALKER RED INR: 2.0 - 3.0 CONDITIONS NOT LISTED BELOW 2.5 - 3.5 FOR PROSTHETIC HEART VALVE REPLACEMENT 2.5 - 3.5 RECURRENT THROMBOSIS Performed By: #### P TT, PT ####[facility] Pihvkilplx[address] [place], [place] [address]Dr. Bhavani Barragan PT Coag (PPP) [Time] 12.6 s Critically high 9.0-11.6 The [facility] Comment on above: Performed By: #### P TT, PT ####[facility] Ldvspekgfa[address] [place], [place] [address]Dr. Bhavani Barragan PTTon 03-25-2022 aPTT Coag (Bld) [Time] 30.6 s Normal 22.3-36.2 The [facility] Comment on above: Performed By: #### P TT, PT ####[facility] Iwqmfyvhxi22[address] [place], [place] [address]Dr. Bhavani Barragan AMMONIAon 03-24-2022 Ammonia (P) [Moles/Vol] 38 umol/L Critically high 11-32 The [facility] Comment on above: Performed By: #### A MM ####[facility] Vsaogdnuou[address] [place], [place] [address]Dr. Bhavani Barragan BNPon 03-24-2022 Natriuretic peptide B (Bld) [Mass/Vol] 2420.0 pg/mL Critically high <=1,800.0 The [facility] Comment on above: Result Comment: repe ated Performed By: #### B RESEARCH SPECIALIST, CMP ####[facility] Vjttfgnnrx[address] [place], [place] [address]Dr. Bhavani Barragan CARDIAC ANDREA 3-6on 2 CK [Catalytic activity/Vol] 20 U/L Critically low 26-192 [facility] Comment on above: Performed By: #### C MREP ####[facility] Uhxwmaplsv7[address] [place], [place] [address]Dr. Bhavani Barragan CK.MB [Mass/Vol] ng/mL Normal <=3.60 [facility] Comment on above: Performed By: #### C MREP ####[facility] Tltxjfxkas5496 [place] [address]Dr. Bhavani Barragan HSTROP 42.4 pg/mL Normal 4.0-51.3 The [facility] Comment on above: Result Comment: CUT- OFF POINTS HAVE BEEN ESTABLISHED BASED ON THE FOURTH UNIVERSAL DEFINITIONS OF MYOCARDIALINFARCTION. THE UPPER REFERENCE LIMIT (URL) OF TROPONIN, DEFINED THE 99TH PERCENTILE OFcTnI DISTRIBUTION IN A REFERENCE POPULATION, HAS BEEN CONFIRMED THE DECISION THRESHOLDFOR HI DIAGNOSIS. Performed By: #### C MREP ####[facility] Hliumqjjqa4232 [place] [address]Dr. Bhavani Barragan CK [Catalytic activity/Vol] 17 U/L Critically low 26-192 [facility] Comment on above: Performed By: #### C MREP ####[facility] Wojtvwwuco[address] [place], [place] [address]Dr. Jayceeroxi Barragan CK.MB [Mass/Vol] 0.51 ng/mL Normal <=3.60 [facility] Comment on above: Performed By: #### C MREP ####[facility] Zgasbmlnwl8[address] [place], [place] [address]Dr. Bhavani Laurel HSTROP 45.4 pg/mL Normal 4.0-51.3 The [facility] Comment on above: Result Comment: CUT- OFF POINTS HAVE BEEN ESTABLISHED BASED ON THE FOURTH UNIVERSAL DEFINITIONS OF MYOCARDIALINFARCTION. THE UPPER REFERENCE LIMIT (URL) OF TROPONIN, DEFINED THE 99TH PERCENTILE OFcTnI DISTRIBUTION IN A REFERENCE POPULATION, HAS BEEN CONFIRMED THE DECISION THRESHOLDFOR HI DIAGNOSIS. Performed By: #### C MREP ####[facility] Wnszveilga8[address] [place] [address]Dr. Bhavani Barragan CBC W MANUAL DIFFon 03-24-20 22 ANISOCYTOSIS 1+ Normal [facility] Comment on above: Performed By: #### C BCMAN ####[facility] Aqwqzozudd2558 [place] [address]Dr. Bhavani Barragan ATYPICAL LYMPH # Normal [facility] Comment on above: Performed By: #### C OMID ####[facility] Shdtjgwefs7050 [place] [phone]. Bhavani Barragan ATYPICAL LYMPH % Normal [facility] Comment on above: Performed By: #### C OMID ####[facility] Uwriztdaws7815 [place], [place] [address]Nx. Yilan Barragan BAND # 0.8 103/ul Critically high 0.0-0.3 [facility] Comment on above: Performed By: #### C OMID ####[facility] Rofmulzgnf1559 [place] [phone]. Yilan Barragan BAND % 3 % Normal 0-5 [facility] Comment on above: Performed By: #### C OMID ####[facility] Jtyqlkgoqy3001 [place] [address]Dr. Bhavani Barragan BASOM # 0.00 103/ul Normal 0.00-0.10 [facility] Comment on above: Performed By: #### C OMID ####[facility] Rwskbpbvzd8015 [place] [address]Dr. Bhavani Barragan BASOM % 0.0 % Critically low 0.2-2.0 The [facility] Comment on above: Performed By: #### C OMID ####[facility] Gnckvkwuwz7751 [place] [address]Dr. Yiroxi Barragan BLAST # Normal [facility] Comment on above: Performed By: #### C OMID ####[facility] Ebqljhtzjs8885 [place] [address]Dr. Yilan Barragan BLAST % Normal [facility] Comment on above: Performed By: #### C OMID ####[facility] Lqegxmaolh8860 [place] [address]Dr. Bhavani Barragan CORRECTED WBC Normal 4.0-11.0 [facility] Comment on above: Performed By: #### C OMID ####[facility] Plobfzxtdc5617 [place] [phone]. Jayceelan Barragan EOS # 0.00 103/ul Normal 0.00-0.70 [facility] Comment on above: Performed By: #### Jany ANNE ####[facility] Ymkolzoamz9803 [place], [place] [address]Ro. Bhavani Barragan EOS% 0.0 % Critically low 0.9-7.0 The [facility] Comment on above: Performed By: #### Jany ANNE ####[facility] Vkfhoirxue9762 [place], [place] [address]Yi. Bhavani Barragan HCT 44.0 % Normal 36.0-48.0 [facility] Comment on above: Performed By: #### C OMID ####[facility] Onfzilqqak4077 [place], [place] [address]Lk. Bhavani Barragan HGB 13.3 g/dl Normal 12.0-16.0 [facility] Comment on above: Performed By: #### Jany ANNE ####[facility] Dssyqbqflh0262 [place] [phone]. Bhavani Barragan LYMPHM # 1.08 103/ul Critically low 1.20-3.80 [facility] Comment on above: Performed By: #### Jany ANNE ####[facility] Tdqahtskwk2878 [place], [place] [address]Mz. Bhavani Barragan LYMPHM% 4.0 % Critically low 20.5-60.0 The [facility] Comment on above: Performed By: #### Jany ANNE ####[facility] Lziltqahfi5811 [place], [place] [address]Sz. Bhavani Barragan MCH 29.6 pg Normal 26.7-34.0 [facility] Comment on above: Performed By: #### Jany ANNE ####[facility] Jyqutuoxlp6457 [place], [place] [address]So. Bhavani Barragan MCHC 30.2 g/dl Normal 29.9-35.2 [facility] Comment on above: Performed By: #### Jany ANNE ####[facility] Euzcrsejft8990 [place], [place] [address]By. Bhavani Barragan MCV 97.8 fL Normal 81.0-99.0 [facility] Comment on above: Performed By: #### Jany ANNE ####[facility] Kptkyyztne7739 [place] [phone]. Bhavani Barragan METAMYELOCYTE # Normal [facility] Comment on above: Performed By: #### C OMID ####[facility] Ypnbvrtxtl9593 [place] [phone]. Bhavani Barragan METAMYELOCYTE % Normal [facility] Comment on above: Performed By: #### C OMID ####[facility] Pezzjxlvfc0464 [place] [phone]. Bhavani Barragan MONOM# 0.54 103/ul Normal 0.30-0.80 [facility] Comment on above: Performed By: #### C OMID ####[facility] Trupsvmlop7419 [place] [phone]. Bhavani Barragan MONOM% 2.0 % Normal 1.7-12.0 [facility] Comment on above: Performed By: #### C OMID ####[facility] [address]mwmwrlviz[address] [place], [place] [address]Dr. Bhavani Barragan MPV 10.3 fL Normal 9.5-13.5 [facility] Comment on above: Performed By: #### C OMID ####[facility] [address]vs[address]hrm[address] [place], [place] [address]Dr. Bhavani Barragan MYELOCYTE # Normal [facility] Comment on above: Performed By: #### C OMID ####[facility] Vtdqwwfgrz9387 [place] [phone]. Bhavani Barragan MYELOCYTE % Normal [facility] Comment on above: Performed By: #### C OMID ####[facility] Kddizsaikc6172 [place] [phone]. Bhavani Barragan NRBC Normal [facility] Comment on above: Performed By: #### C OMID ####[facility] Rsmranbwvf7491 [place] [phone]. Bhavani Barragan PLT 424 103/ul Normal 150-450 [facility] Comment on above: Performed By: #### C OMID ####[facility] Ihliwyxroz6327 [place] [phone]. Bhavani Barragan RBC 4.50 106/ul Normal 4.20-5.40 [facility] Comment on above: Performed By: #### C OMID ####[facility] Okaaogjwkf5714 [place] [phone]. Bhavani Barragan RDW 15.9 % Critically high 11.0-15.0 [facility] Comment on above: Performed By: #### C OMID ####[facility] Bfioyhasfc3145 [place] [phone]. Bhavani Barragan SEG # 24.48 103/ul Critically high 1.40-6.50 [facility] Comment on above: Performed By: #### C OMID ####[facility] Lrguilwpab8043 [place] [phone]. Bhavani Barragan SEG % 91.0 % Critically high 43.0-75.0 [facility] Comment on above: Performed By: #### C OMID ####[facility] Cwgoypwptv9690 [place] [phone]. Bhavani Barragan WBC 26.9 103/ul Critically high 4.0-11.0 [facility] Comment on above: Performed By: #### C OMID ####[facility] Hbazndwgrj5983 [place] [phone]. Bhavani Barragan CULTURE URINEon 03-24-[address] [facility] Comment on above: Performed By: #### U RCX ####[facility] Rtdhncthnn9493 [place] [phone]. Bhavani Barragan POINT OF CARE GLUCOSEon 05- Glucose [Mass/Vol] 113 mg/dL Critically high 74-106 [facility] Comment on above: Performed By: #### P OCGLUC ####[facility] Ntevcisugv2634 [place] [phone]. Bhavani Barragan Glucose [Mass/Vol] 103 mg/dL Normal 74-106 [facility] Comment on above: Performed By: #### P OCGLUC ####[facility] Gbqvfafpeg2863 [place] [phone]. Bhavani Barragan Glucose [Mass/Vol] 134 mg/dL Critically high 74-106 [facility] Comment on above: Performed By: #### P OCGLUC ####[facility] Zwdrmkkoeg4051 [place] [address]Dr. Jayceeroxi Barragan PROF 14(COMP METB)on 022 Albumin [Mass/Vol] 2.3 g/dL Critically low 3.4-5.0 Th [facility] Comment on above: Performed By: #### B RESEARCH SPECIALIST, CMP ####[facility] Ngovfcyedf[address] [place], [place] [address]Dr. Bhavani Barragan Albumin/Globulin [Mass ratio] 0.6 {ratio} Normal [facility] Comment on above: Performed By: #### B RESEARCH SPECIALIST, CMP ####[facility] Aprgtkzlkz[address] [place], [place] [address]Dr. Bhavani Barragan ALP [Catalytic activity/Vol] 239 U/L Critically high 46-116 [facility] Comment on above: Performed By: #### B RESEARCH SPECIALIST, CMP ####[facility] [address]anypmhncp[address] [place], [place] [address]Dr. Bhavani Barragan ALT [Catalytic activity/Vol] 185 U/L Critically high 14-59 [facility] [facility] Comment on above: Performed By: #### B RESEARCH SPECIALIST, CMP ####[facility] Y[address] [place], [place] [address]Dr. Bhavani Barragan Anion gap [Moles/Vol] 13.8 mmol/L Normal [facility] Comment on above: Performed By: #### B RESEARCH SPECIALIST, CMP ####[facility] Bczmtpgaws[address] [place], [place] [address]Dr. Bhavani Barragan AST [Catalytic activity/Vol] 64 U/L Critically high 15-37 [facility] Comment on above: Performed By: #### B RESEARCH SPECIALIST, CMP ####[facility] Opjxclurzj[address] [place], [place] [address]Dr. Bhavani Barragan Bilirubin [Mass/Vol] 0.6 mg/dL Normal 0.2-1.0 [facility] Comment on above: Performed By: #### B RESEARCH SPECIALIST, CMP ####[facility] Cwpbvyzrcz[address] [place], [place] [address]Dr. Bhavani Barragan Calcium [Mass/Vol] 7.3 mg/dL Critically low 8.5-10.1 [facility] Comment on above: Performed By: #### B RESEARCH SPECIALIST, CMP ####[facility] Xqnhwvzhdk[address] [place], [place] [address]Dr. Bhavani Barragan Chloride [Moles/Vol] 105 mmol/L Normal 98-107 [facility] Comment on above: Performed By: #### B RESEARCH SPECIALIST, CMP ####[facility] Rrlegbtzim9[address] [place], [place] [address]Dr. Bhavani Barragan CO2 [Moles/Vol] 20.9 mmol/L Critically low 21.0-32.0 [facility] Comment on above: Performed By: #### B RESEARCH SPECIALIST, CMP ####[facility] Jwnffepvqw8[address] [place], [place] [address]Dr. Bhavani Barragan Creatinine [Mass/Vol] 1.24 mg/dL Critically high 0.55-1.02 [facility] Comment on above: Performed By: #### B RESEARCH SPECIALIST, CMP ####[facility] Krkohpgqjo85[address] [place], [place] [address]Dr. Bhavani Barragan EGFR-AF MOZAMBICAN 50 mL/min/1.73m2 Critically low >=60 [facility] Comment on above: Performed By: #### B RESEARCH SPECIALIST, CMP ####[facility] Qppbrenssl[address] [place], [place] [address]Dr. Bhavani Barragan EGFR-NON AF MOZAMBICAN 41 mL/min/1.73m2 Critically low >=60 [facility] Comment on above: Performed By: #### B RESEARCH SPECIALIST, CMP ####[facility] Ftaxxonmqh[address] [place], [place] [address]Dr. Bhavani Barragan Globulin (S) [Mass/Vol] 3.8 g/dL Normal [facility] Comment on above: Performed By: #### B RESEARCH SPECIALIST, CMP ####[facility] Fcwflbfdtm00[address] [place], [place] [address]Dr. Bhavani Barragan Glucose [Mass/Vol] 164 mg/dL Critically high 74-106 [facility] Comment on above: Performed By: #### B RESEARCH SPECIALIST, CMP ####[facility] Tnnnnrpavp28[address] [place], [place] [address]Dr. Jayceeroxi Barragan Potassium [Moles/Vol] 3.7 mmol/L Normal 3.5-5.1 [facility] Comment on above: Performed By: #### B RESEARCH SPECIALIST, CMP ####[facility] Jaeqlptepl9864[address] [place], [place] [address]Dr. Jayceeroxi Barragan Protein [Mass/Vol] 6.1 g/dL Critically low 6.4-8.2 [facility] Comment on above: Performed By: #### B RESEARCH SPECIALIST, CMP ####[facility] Lsrvyprlbb2630[address] [place], [place] [address]Dr. Bhavani Barragan Sodium [Moles/Vol] 136 mmol/L Normal 136-145 [facility] Comment on above: Performed By: #### B RESEARCH SPECIALIST, CMP ####[facility] Hchspgkzxx9[address] [place], [place] [address]Dr. Bhavani Barragan Urea nitrogen [Mass/Vol] 23.0 mg/dL Critically high 7.0-18.0 [facility] Comment on above: Performed By: #### B RESEARCH SPECIALIST, CMP ####[facility] Ypimczhpzm[address]25[address] [place], [place] [address]Dr. Bhavani Barragan Urea nitrogen/Creatinine [Mass ratio] 18.5 mg/mg Normal [facility] Comment on above: Performed By: #### B RESEARCH SPECIALIST, CMP ####[facility] Efneeasibg[address] [place], [place] [address]Dr. Bhavani Barragan PROTIMEon 03-24-2022 INR Coag (PPP) [Relative time] 1.19 {INR} Normal [facility] Comment on above: Performed By: #### P TT, PT ####[facility] Zgxmaoamkz[address] [place], [place] [address]Dr. Bhavani Barragan INR GUIDELINES SEE BELOW Normal [facility] Comment on above: Result Comment: WALKER RED INR: 2.0 - 3.0 CONDITIONS NOT LISTED BELOW 2.5 - 3.5 FOR PROSTHETIC HEART VALVE REPLACEMENT 2.5 - 3.5 RECURRENT THROMBOSIS Performed By: #### P TT, PT ####[facility] [address] [place] [address]Dr. Bhavani Barragan PT Coag (PPP) [Time] 12.7 s Critically high 9.0-11.6 [facility] Comment on above: Performed By: #### P TT, PT ####[facility] [address]kw[address]rr[address] [place] [address]Dr. Bhavani Barragan PTTon 03-24-2022 aPTT Coag (Bld) [Time] 29.4 s Normal 22.3-36.2 [facility] Comment on above: Performed By: #### P TT, PT ####[facility] Hdyferjsst[address] [place], [place] [address]Dr. Jayceeroxi Barragan AMMONIAon 03-23-2022 Ammonia (P) [Moles/Vol] 26 umol/L Normal 11-32 [facility] Comment on above: Performed By: #### A MM ####[facility] Dfbbxwzkph95[address] [place], [place] [address]Dr. Jayceeroxi Laurel AMYLASEon 03-23-2022 Amylase [Catalytic activity/Vol] 21 U/L Critically low 25-115 [facility] Comment on above: Performed By: #### A MY LIPA, BNP ####[facility] Jjkyyceudf[address] [place], [place] [address]Dr. Jayceeroxi Laurel BNPon 03-23-2022 Natriuretic peptide B (Bld) [Mass/Vol] 6713.0 pg/mL Critically high <=1,800.0 [facility] Comment on above: Result Comment: repe ated Performed By: #### B RESEARCH SPECIALIST, CMP ####[facility] Beudewvvwn[address] [place], [place] [address]Dr. Bhavani Barragan Natriuretic peptide B (Bld) [Mass/Vol] 6961.0 pg/mL Critically high <=1,800.0 [facility] Comment on above: Performed By: #### A MY, LIPA, BNP ####[facility] Cfczqzqxie69[address] [place], [place] [address]Dr. Jayceeroxi Barragan CBC W MANUAL DIFFon 03-23-20 ANISOCYTOSIS 1+ Normal [facility] Comment on above: Performed By: #### C BCJERSON ####[facility] [address] [place] [address]Dr. Yilan Barragan ATYPICAL LYMPH # Normal [facility] Comment on above: Performed By: #### C BCMAN ####[facility] [address]ze[address] [place] [id number]. Yilan Barragan ATYPICAL LYMPH % Normal [facility] Comment on above: Performed By: #### C BCJERSON ####[facility] [address]fvpqmenju[address] [place] [address]Dr. Yilan Barragan BAND # 0.6 103/ul Critically high 0.0-0.3 [facility] Comment on above: Performed By: #### C OMID ####[facility] [address]cxdr[address] [place] [address]Dr. Yilan Barragan BAND % 2 % Normal 0-5 [facility] Comment on above: Performed By: #### C OMID ####[facility] Pasnxsouuv[address] [place], [place] [address]Dr. Yilan Barragan BASOM # 0.00 103/ul Normal 0.00-0.10 [facility] Comment on above: Performed By: #### C OMID ####[facility] Izejjavzrs[address] [place], [place] [address]Dr. Yilan Barragan BASOM % 0.0 % Critically low 0.2-2.0 [facility] Comment on above: Performed By: #### C OMID ####[facility] V[address]os[address]fjm[address] [place], [place] [address]Dr. Yilan Barragan BLAST # Normal [facility] Comment on above: Performed By: #### C OMID ####[facility] Rglpmbzyki6[address] [place], [place] [address]Dr. Yilan Barragan BLAST % Normal [facility] Comment on above: Performed By: #### C BCJERSON ####[facility] Ffogvrjyvi[address] [place], [place] [address]Dr. Jayceelan Barragan CORRECTED WBC Normal 4.0-11.0 [facility] Comment on above: Performed By: #### C BCJERSON ####[facility] [address] [place], [place] [address]Ac. Bhavani Barragan EOS # 0.30 103/ul Normal 0.00-0.70 [facility] Comment on above: Performed By: #### C OMID ####[facility] [address] [place], [place] [address]Jo. Bhavani Barragan EOS% 1.0 % Normal 0.9-7.0 [facility] Comment on above: Performed By: #### C OMID ####[facility] [address] [place], [place] [address]Mm. Bhavani Barragan HCT 48.1 % Critically high 36.0-48.0 [facility] Comment on above: Performed By: #### C OMID ####[facility] [address] [place] [id number]. Bhavani Barragan HGB 14.6 g/dl Normal 12.0-16.0 [facility] Comment on above: Performed By: #### C OMID ####[facility] [address]fjzz39[address] [place] [id number]. Bhavani Barragan LYMPHM # 0.90 103/ul Critically low 1.20-3.80 [facility] Comment on above: Performed By: #### C OMID ####[facility] [address] [place] [id number]. Bhavani Barragan LYMPHM% 3.0 % Critically low 20.5-60.0 [facility] Comment on above: Performed By: #### C OMID ####[facility] [address]ix[address]sfxf3[address] [place], [place] [address]Ie. Bhavani Barragan MCH 29.4 pg Normal 26.7-34.0 [facility] Comment on above: Performed By: #### C OMID ####[facility] S[address]jo[address]azd[address] [place] [id number]. Bhavani Barragan MCHC 30.4 g/dl Normal 29.9-35.2 [facility] Comment on above: Performed By: #### C OMID ####[facility] Ipnjbuaisc[address] [place] [id number]. Bhavani Barragan MCV 96.8 fL Normal 81.0-99.0 [facility] Comment on above: Performed By: #### C OMID ####[facility] W[address]fssbns8[address] [place] [id number]. Bhavani Barragan METAMYELOCYTE # Normal [facility] Comment on above: Performed By: #### C OMID ####[facility] Xc[address]we[address]fcu3[address] [place] [id number]. Bhavani Barragan METAMYELOCYTE % Normal [facility] Comment on above: Performed By: #### C OMID ####[facility] O[address]kvmxaak[address] [place], [place] [address]Dr. Bhavani Barragan MONOM# 0.60 103/ul Normal 0.30-0.80 [facility] Comment on above: Performed By: #### C OMID ####[facility] Xlbsamfajt364[address] [place], [place] [address]Dr. Bhavani Barragan MONOM% 2.0 % Normal 1.7-12.0 [facility] Comment on above: Performed By: #### C OMID ####[facility] Vuyiokmwuu9[address] [place], [place] [address]Dr. Bhavani Laurel MPV 10.2 fL Normal 9.5-13.5 [facility] Comment on above: Performed By: #### C OMID ####[facility] Wqcngcuqaq[address] [place], [place] [address]Dr. Bhavani Barragan MYELOCYTE # Normal [facility] Comment on above: Performed By: #### C OMID ####[facility] Son[address]ktlf[address] [place] [phone]. Jayceeroxi Barragan MYELOCYTE % Normal [facility] Comment on above: Performed By: #### C OMID ####[facility] Nriztkvdka[address] [place], [place] [address]Dr. Bhavani Barragan NRBC Normal [facility] Comment on above: Performed By: #### C OMID ####[facility] Qwfibtadkt9067[address] [place], [place] [address]Dr. Bhavani Barragan PLT 391 103/ul Normal 150-450 [facility] Comment on above: Performed By: #### C BCMAN ####[facility] Teyktfvdmy[address] [place] [phone]. Bhavani Barragan RBC 4.97 106/ul Normal 4.20-5.40 [facility] Comment on above: Performed By: #### C BCJERSON ####[facility] T[address]ojrpd[address] [place] [phone]. Bhavani Barragan RDW 15.8 % Critically high 11.0-15.0 [facility] Comment on above: Performed By: #### C BCJERSON ####[facility] Kdmqzsiyfz6[address] [place] [phone]. Bhavani Barragan SEG # 27.60 103/ul Critically high 1.40-6.50 [facility] Comment on above: Performed By: #### C OMID ####[facility] Dfdxvbiebk1783 [place] [phone]. Bhavani Barragan SEG % 92.0 % Critically high 43.0-75.0 [facility] Comment on above: Performed By: #### C OMID ####[facility] F[address]pj[address] [place], [place] [address]Dr. Bhavani Barragan WBC 30.0 103/ul Critically high 4.0-11.0 [facility] Comment on above: Performed By: #### C OMID ####[facility] Ab[address]qjlwpz98[address] [place] [phone]. Bhavani Barragan LIPASEon 03-23-2022 Lipase [Catalytic activity/Vol] 35.0 U/L Critically low 73.0-393.0 [facility] Comment on above: Performed By: #### A MY, LIPA, BNP ####[facility] [address]uw[address]jryq[address] [place], [place] [address]Dr. Bhavani Barragan POINT OF CARE GLUCOSEon Glucose [Mass/Vol] 141 mg/dL Critically high 74-106 [facility] Comment on above: Performed By: #### P OCGLUC ####[facility] [address]ht[address] [place] [address]Dr. Bhavani Barragan Glucose [Mass/Vol] 107 mg/dL Critically high 74-106 [facility] Comment on above: Performed By: #### P OCGLUC ####[facility] Gypzlgaeay75[address] [place] [address]Dr. Jayceeroxi Barragan Glucose [Mass/Vol] 152 mg/dL Critically high 74-106 [facility] Comment on above: Performed By: #### P OCGLUC ####[facility] Dqrvzemomv99[address] [place] [address]Dr. Bhavani Barragan PROF 14(COMP METB)on 022 Albumin [Mass/Vol] 2.4 g/dL Critically low 3.4-5.0 [facility] Comment on above: Performed By: #### B RESEARCH SPECIALIST, CMP ####[facility] Riycdhxwda8[address] [place], [place] [address]Dr. Bhavnai Barragan Albumin/Globulin [Mass ratio] 0.6 {ratio} Normal [facility] Comment on above: Performed By: #### B RESEARCH SPECIALIST, CMP ####[facility] Gderxfqnjn[address] [place], [place] [address]Dr. Bhavani Barragan ALP [Catalytic activity/Vol] 298 U/L Critically high 46-116 [facility] Comment on above: Performed By: #### B RESEARCH SPECIALIST, CMP ####[facility] Buwsmgbiio[address] [place], [place] [address]Dr. Bhavani Barragan ALT [Catalytic activity/Vol] 280 U/L Critically high 14-59 [facility] Comment on above: Performed By: #### B RESEARCH SPECIALIST, CMP ####[facility] Tsqohlwyxv398[address] [place], [place] [address]Dr. Bhavani Barragan Anion gap [Moles/Vol] 15.2 mmol/L Normal [facility] Comment on above: Performed By: #### B RESEARCH SPECIALIST, CMP ####[facility] Boxefkgytq67[address] [place], [place] [address]Dr. Bhavani Barragan AST [Catalytic activity/Vol] 146 U/L Critically high 15-37 [facility] Comment on above: Performed By: #### B RESEARCH SPECIALIST, CMP ####[facility] Acxatqmcqr6266 [place] [phone]. Bhavani Barragan Bilirubin [Mass/Vol] 1.8 mg/dL Critically high 0.2-1.0 [facility] Comment on above: Performed By: #### B RESEARCH SPECIALIST, CMP ####[facility] Tsrxdlyykt2245 [place] [phone]. Bhavani Barragan Calcium [Mass/Vol] 7.7 mg/dL Critically low 8.5-10.1 [facility] Comment on above: Performed By: #### B RESEARCH SPECIALIST, CMP ####[facility] Jsiakwgkof[address] [place], [place] [address]Dr. Bhavani Barragan Chloride [Moles/Vol] 105 mmol/L Normal 98-107 [facility] Comment on above: Performed By: #### B RESEARCH SPECIALIST, CMP ####[facility] Tjiechklgo[address] [place], [place] [address]Dr. Bhavani Barragan CO2 [Moles/Vol] 22.0 mmol/L Normal 21.0-32.0 [facility] Comment on above: Performed By: #### B RESEARCH SPECIALIST, CMP ####[facility] Kxmqesyfow26[address] [place], [place] [address]Dr. Bhavani Barragan Creatinine [Mass/Vol] 1.44 mg/dL Critically high 0.55-1.02 [facility] Comment on above: Performed By: #### B RESEARCH SPECIALIST, CMP ####[facility] Ahoidmghcc9[address] [place], [place] [address]Dr. Bhavani Barragan EGFR-AF MOZAMBICAN 42 mL/min/1.73m2 Critically low >=60 [facility] Comment on above: Performed By: #### B RESEARCH SPECIALIST, CMP ####[facility] R[address]tnlqr[address] [place], [place] [address]Dr. Bhavani Barragan EGFR-NON AF MOZAMBICAN 35 mL/min/1.73m2 Critically low >=60 [facility] Comment on above: Performed By: #### B RESEARCH SPECIALIST, CMP ####[facility] Resagzyzsz[address] [place], [place] [address]Dr. Bhavani Barragan Globulin (S) [Mass/Vol] 4.0 g/dL Normal [facility] Comment on above: Performed By: #### B RESEARCH SPECIALIST, CMP ####[facility] Vqmfbdigcn92[address] [place], [place] [address]Dr. Bhavani Barragan Glucose [Mass/Vol] 136 mg/dL Critically high 74-106 [facility] Comment on above: Performed By: #### B RESEARCH SPECIALIST, CMP ####[facility] Nsuiknbdre[address] [place], [place] [address]Dr. Jayceeroxi Laurel Potassium [Moles/Vol] 4.2 mmol/L Normal 3.5-5.1 [facility] Comment on above: Performed By: #### B RESEARCH SPECIALIST, CMP ####[facility] Crzugcexui[address] [place], [place] [address]Dr. Bhavani Barragan Protein [Mass/Vol] 6.4 g/dL Normal 6.4-8.2 [facility] Comment on above: Performed By: #### B RESEARCH SPECIALIST, CMP ####[facility] O[address]hjefofp[address] [place], [place] [address]Dr. Bhavani Barragan Sodium [Moles/Vol] 138 mmol/L Normal 136-145 [facility] Comment on above: Performed By: #### B RESEARCH SPECIALIST, CMP ####[facility] Twolsxhvcc[address] [place], [place] [address]Dr. Bhavani Barragan Urea nitrogen [Mass/Vol] 23.0 mg/dL Critically high 7.0-18.0 [facility] Comment on above: Performed By: #### B RESEARCH SPECIALIST, CMP ####[facility] Rroyhudtfy[address] [place], [place] [address]Dr. Bhavani Barragan Urea nitrogen/Creatinine [Mass ratio] 16.0 mg/mg Normal [facility] Comment on above: Performed By: #### B RESEARCH SPECIALIST, CMP ####[facility] Vroyrkguxd7[address] [place], [place] [address]Dr. Bhavani Barragan PROTIMEon 03-23-2022 INR Coag (PPP) [Relative time] 1.53 {INR} Normal [facility] Comment on above: Performed By: #### P TT, PT ####[facility] Qpepwitbqb[address] [place], [place] [address]Dr. Bhavani Barragan INR GUIDELINES SEE BELOW Normal [facility] Comment on above: Result Comment: WALKER RED INR: 2.0 - 3.0 CONDITIONS NOT LISTED BELOW 2.5 - 3.5 FOR PROSTHETIC HEART VALVE REPLACEMENT 2.5 - 3.5 RECURRENT THROMBOSIS Performed By: #### P TT, PT ####[facility] [address]zdszxvl5[address] [place] [address]Dr. Bhavani Barragan PT Coag (PPP) [Time] 16.1 s Critically high 9.0-11.6 [facility] Comment on above: Performed By: #### P TT, PT ####[facility] Oekllefwyl[address] [place], [place] [address]Dr. Bhavani Barragan PTTon 03-23-2022 aPTT Coag (Bld) [Time] 29.9 s Normal 22.3-36.2 [facility] Comment on above: Performed By: #### P TT, PT ####[facility] Htsvzcrkmw[address] [place], [place] [address]Dr. Bhavani Barragan BILIRUBIN CONJUGATED (DIRECT )on 03-22-2022 BILI, CONJUGATED 2.3 mg/dL Critically high 0.0-0.2 [facility] Comment on above: Performed By: #### D RAI ####[facility] Gvbwjm[address]bw[address] [place], [place] [address]Dr. Bhavani Barragan BNPon 03-22-2022 Natriuretic peptide B (Bld) [Mass/Vol] 2436.0 pg/mL Critically high <=1,800.0 [facility] Comment on above: Result Comment: this BNP was run on specimen from ER drawn on 03/22 at 1606 Performed By: #### B RESEARCH SPECIALIST ####[facility] Momkvpvejw[address] [place], [place] [address]Dr. Bhavani Barragan CBC W MANUAL DIFFon 03-22-20 ATYPICAL LYMPH # Normal [facility] Comment on above: Performed By: #### C BCJERSON ####[facility] J[address]sgopdco[address] [place], [place] [address]Dr. Bhavani Barragan ATYPICAL LYMPH % Normal [facility] Comment on above: Performed By: #### C BCMAN ####[facility] Jqtftyxsfn9639 [place] [phone]. Yilan Barragan BAND # 0.9 103/ul Critically high 0.0-0.3 [facility] Comment on above: Performed By: #### C BCJERSON ####[facility] Vtwtppmvzb3184 [place] [address]Dr. Yilan Barragan BAND % 3 % Normal 0-5 [facility] Comment on above: Performed By: #### C BCJERSON ####[facility] [address]fojbpxhu[address] [place] [address]Dr. Yilan Barragan BASOM # 0.00 103/ul Normal 0.00-0.10 [facility] Comment on above: Performed By: #### C OMID ####[facility] Fwftsbgjpf5048 [place] [address]Dr. Yilan Barragan BASOM % 0.0 % Critically low 0.2-2.0 [facility] Comment on above: Performed By: #### C OMID ####[facility] M[address]gouqtsm87[address] [place] [address]Dr. Yilan Barragan BLAST # Normal [facility] Comment on above: Performed By: #### C OMID ####[facility] [address]fc[address]wnsfaw[address] [place], [place] [address]Dr. Yilan Barragan BLAST % Normal [facility] Comment on above: Performed By: #### C OMID ####[facility] Hjdyzntqtm6065 [place] [address]Dr. Yilan Barragan CORRECTED WBC Normal 4.0-11.0 [facility] Comment on above: Performed By: #### C OMID ####[facility] Gczuprqier3[address] [place] [address]Dr. Yilan Barragan EOS # 0.00 103/ul Normal 0.00-0.70 [facility] Comment on above: Performed By: #### C BCJERSON ####[facility] [address]ngxpostrg[address] [place] [address]Dr. Yilan Barragan EOS% 0.0 % Critically low 0.9-7.0 The [facility] Comment on above: Performed By: #### Jany ANNE ####[facility] Rezotomiqf1442 [place], [place] [address]Pn. Bhavani Barragan HCT 44.6 % Normal 36.0-48.0 [facility] Comment on above: Performed By: #### Jany ANNE ####[facility] Crmklsjchm0249 [place], [place] [address]Yp. Bhavani Barragan HGB 13.9 g/dl Normal 12.0-16.0 [facility] Comment on above: Performed By: #### Jany ANNE ####[facility] Rdjmmoviuw4597 [place] [id number]. Bhavani Barragan LYMPHM # 0.60 103/ul Critically low 1.20-3.80 The [facility] Comment on above: Performed By: #### Jany ANNE ####[facility] Xfglaoouqw5192 [place] [id number]. Bhavani Barragan LYMPHM% 2.0 % Critically low 20.5-60.0 The [facility] Comment on above: Performed By: #### Jany ANNE ####[facility] Swdwkwwedd78[address] [place] [id number]. Bhavani Barragan MCH 29.8 pg Normal 26.7-34.0 [facility] Comment on above: Performed By: #### Jany ANNE ####[facility] Ocgwxbzpgh7188 [place] [phone]. Bhavani Barragan MCHC 31.2 g/dl Normal 29.9-35.2 [facility] Comment on above: Performed By: #### Jany ANNE ####[facility] Onjjmbqixr0693 [place] [id number]. Bhavani Barragan MCV 95.7 fL Normal 81.0-99.0 [facility] Comment on above: Performed By: #### Jany ANNE ####[facility] Nphlllrwun5036 [place] [phone]. Bhavani Barragan METAMYELOCYTE # Normal [facility] Comment on above: Performed By: #### Jany ANNE ####[facility] Zumwmmgjet5055 [place] [phone]. Jayceeroxi Barragan METAMYELOCYTE % Normal [facility] Comment on above: Performed By: #### C OMID ####[facility] Jpfyekljko0995 [place] [phone]. Bhavani Barragan MONOM# 0.60 103/ul Normal 0.30-0.80 [facility] Comment on above: Performed By: #### C OMID ####[facility] Qxzihpqzzt6622 [place] [phone]. Bhavani Barragan MONOM% 2.0 % Normal 1.7-12.0 [facility] Comment on above: Performed By: #### C OMID ####[facility] Qfstoygbed9159 [place] [phone]. Bhavani Laurel MPV 9.7 fL Normal 9.5-13.5 [facility] Comment on above: Performed By: #### C OMID ####[facility] [address]xct[address] [place], [place] [address]Dr. Bhavani Barragan MYELOCYTE # Normal [facility] Comment on above: Performed By: #### C OMID ####[facility] Hxofhdrzzp[address] [place], [place] [address]Dr. Jayceeroxi Barragan MYELOCYTE % Normal [facility] Comment on above: Performed By: #### C OMID ####[facility] Rjaxywmidg3025 [place] [phone]. Bhavani Barragan NRBC Normal [facility] Comment on above: Performed By: #### C OMID ####[facility] Nvztmdmchs7987 [place] [phone]. Bhavani Barragan PLT 436 103/ul Normal 150-450 [facility] Comment on above: Performed By: #### C OMID ####[facility] Nytsayhsru1914 [place] [phone]. Jayceeroxi Laurel RBC 4.66 106/ul Normal 4.20-5.40 [facility] Comment on above: Performed By: #### C OMID ####[facility] Klzmlxjfkd[address] [place], [place] [address]Dr. Bhavani Barragan RDW 15.2 % Critically high 11.0-15.0 [facility] Comment on above: Performed By: #### C OMID ####[facility] Xohlqlxcnq1912 [place] [phone] Barragan SEG # 28.09 103/ul Critically high 1.40-6.50 [facility] Comment on above: Performed By: #### C OMID ####[facility] Wnwicoyuxh5582 [place] [phone] Barragan SEG % 93.0 % Critically high 43.0-75.0 [facility] Comment on above: Performed By: #### C OMID ####[facility] Kenqlfiiob5647 [place] [address]DrLydia Barragan WBC 30.2 103/ul Critically high 4.0-11.0 [facility] Comment on above: Result Comment: test repeated critical value verified Performed By: #### C OMID ####[facility] Gdmlsjzvvw89[address] [place] [address]DrLydia Barragan CULTURE BLOODon 03-22-2022 Microscopic examination of blood, culture Culture Observations: NO GROWTH AT 5 DAYS. Normal [facility] Comment on above: Performed By: #### B LDCX2 ####[facility] Uvhcjcohiu0714 [place] [phone] Barragan Performed By: #### B LDCX1 ####[facility] Fcionpojoe1316 [place] [address]DrLydia Barragan Covid-19 PCR ([facility])on SARS-CoV-2 (COVID-19) RNA MATTHEW+probe Ql (Unsp spec) Not detected Normal NOT DETECTED [facility] Comment on above: Result Comment: When [...] for this test is supported by the [place] of Health and Human Service's declaration that [...] used). Performed By: #### C VDTBH ####[facility] Fshraclpbj[address] [place], [place] [address]Dr. Bhavani Barragan ER URINE PROFILEon 2 Bilirubin Ql (U) MODERATE Abnormal NEGATIVE [facility] Comment on above: Performed By: #### U MICRO, ERUR ####[facility] Kbqcoirjsa[address] [place], [place] [address]Dr. Bhavani aBrragan Clarity (U) CLEAR Normal CLEAR [facility] Comment on above: Performed By: #### U MICRO, ERUR ####[facility] Fbxooqyufe[address] [place], [place] [address]Dr. Bhavani Barragan Color (U) YELLOW Normal YELLOW [facility] Comment on above: Performed By: #### U MICRO, ERUR ####[facility] Uiounotmqv64[address] [place], [place] [address]Dr. Bhavani Barragan ERUAHD A micrscopic examination will be performed if indicated. Normal [facility] Comment on above: Performed By: #### U MICRO, ERUR ####[facility] Bhymmgtmjc09[address] [place], [place] [address]Dr. Bhavani Barragan Glucose Ql (U) Negative Normal NEGATIVE The [facility] Comment on above: Performed By: #### U MICRO, ERUR ####[facility] Rjltsgjmwz[address] [place], [place] [address]Dr. Bhavani Barragan Hemoglobin Ql (U) TRACE-INTACT Abnormal NEGATIVE [facility] Comment on above: Performed By: #### U MICRO, ERUR ####[facility] Ywyrylricx2[address] [place], [place] [address]Dr. Bhavani Barragan Ketones Ql (U) Negative Normal NEGATIVE [facility] Comment on above: Performed By: #### U MICRO, ERUR ####[facility] Nqxbjjrzcl2850 [place] [address]Dr. Bhavnai Barragan LEUKOCYTES LARGE Abnormal NEGATIVE [facility] Comment on above: Performed By: #### U MICRO, ERUR ####[facility] Ltkziembzm11[address] [place], [place] [address]Dr. Bhavani Barragan Nitrite Ql (U) Negative Normal NEGATIVE [facility] Comment on above: Performed By: #### U MICRO, ERUR ####[facility] Pnjhitauso[address] [place], [place] [address]Dr. Bhavani Barragan pH (U) 5.5 [pH] Normal 5-9 [facility] Comment on above: Performed By: #### U MICRO, ERUR ####[facility] Rgpfeyntqa[address] [place], [place] [address]Dr. Bhavani Barragan Protein (U) [Mass/Vol] 30 mg/dL Abnormal NEGATIVE/ TRACE [facility] Comment on above: Performed By: #### U MICRO, ERUR ####[facility] Xwfoyiyjkn[address] [place], [place] [address]Dr. Bhavani Barragan SPEC GRAVITY 1.020 Normal 1.005-<=1.[address] [place] [address] Comment on above: Performed By: #### U MICRO, ERUR ####[facility] Uzsforbh[address] [place], [place] [address]Dr. Bhavani Barragan UR MICRO IND INDICATED Normal [facility] Comment on above: Performed By: #### U MICRO, ERUR ####[facility] Gqaoafcvxw[address] [place], [place] [address]Dr. Bhavani Barragan Urobilinogen Qn (U) 4 {Ridge'U}/dL Abnormal 0.2 - 1.0 [facility] Comment on above: Performed By: #### U MICRO, ERUR ####[facility] Ammboundai[address] [place], [place] [address]Dr. Bhavani Barragan LACTATE/LACTIC ACIDon 2021 Lactate [Moles/Vol] 0.9 mmol/L Normal 0.4-2.0 [facility] Comment on above: Performed By: #### L ACT ####[facility] Zpljvtrvjx[address] [place] [address]Dr. Bhavani Barragan Lactate [Moles/Vol] 1.2 mmol/L Normal 0.4-2.0 [facility] Comment on above: Performed By: #### L ACT ####[facility] Tumvwqsegf8[address] [place] [address]Dr. Bhavani Barragan POINT OF CARE GLUCOSEon Glucose [Mass/Vol] 188 mg/dL Critically high 74-106 [facility] Comment on above: Performed By: #### P OCGLUC ####[facility] Wrhlnlpapx[address] [place], [place] [address]Dr. Bhavani Barragan PROF 14(COMP METB)on 022 Albumin [Mass/Vol] 2.9 g/dL Critically low 3.4-5.0 [facility] Comment on above: Performed By: #### C MP ####[facility] Xbiqkgresb[address] [place], [place] [address]Dr. Bhavani Barragan Albumin/Globulin [Mass ratio] 0.7 {ratio} [facility] Comment on above: Performed By: #### C MP ####[facility] [address] [place] [address]Dr. Bhavani Barragan ALP [Catalytic activity/Vol] 372 U/L Critically high 46-116 [facility] Comment on above: Performed By: #### C MP ####[facility] Gvfbvvqcwq5478 [place] [address]Dr. Bhavani Barragan ALT [Catalytic activity/Vol] 402 U/L Critically high 14-59 [facility] Comment on above: Performed By: #### C MP ####[facility] Pppftvsxof3351 [place] [address]Dr. Bhavani Barragan Anion gap [Moles/Vol] 10.6 mmol/L Normal [facility] Comment on above: Performed By: #### C MP ####[facility] Ivdpfvaahn4411 [place] [address]Dr. Bhavani Barragan AST [Catalytic activity/Vol] 346 U/L Critically high 15-37 [facility] Comment on above: Performed By: #### C MP ####[facility] Conttkbgal7208 [place] [address]Dr. Bhavani Barragan Bilirubin [Mass/Vol] 2.8 mg/dL Critically high 0.2-1.0 [facility] Comment on above: Performed By: #### C MP ####[facility] Qzxmjlglpc[address] [place], [place] [address]Dr. Bhavani Barragan Calcium [Mass/Vol] 7.9 mg/dL Critically low 8.5-10.1 Th e [facility] Comment on above: Performed By: #### C MP ####[facility] Nughosbuie[address] [place], [place] [address]Dr. Bhavani Barragan Chloride [Moles/Vol] 106 mmol/L Normal 98-107 [facility] Comment on above: Performed By: #### C MP ####[facility] Wymmfrrrwz[address] [place], [place] [address]Dr. Bhavani Barragan CO2 [Moles/Vol] 23.5 mmol/L Normal 21.0-32.0 [facility] Comment on above: Performed By: #### C MP ####[facility] Kjwyqbuwsu[address] [place], [place] [address]Dr. Bhavani Barragan Creatinine [Mass/Vol] 1.57 mg/dL Critically high 0.55-1.02 [facility] Comment on above: Performed By: #### C MP ####[facility] Oxvdxyawif[address] [place] [address]Dr. Bhavani Barragan EGFR-AF MOZAMBICAN 38 mL/min/1.73m2 Critically low >=60 [facility] Comment on above: Performed By: #### C MP ####[facility] Mjeitlzodw[address] [place], [place] [address]Dr. Bhavani Barragan EGFR-NON AF MOZAMBICAN 32 mL/min/1.73m2 Critically low >=60 [facility] Comment on above: Performed By: #### C MP ####[facility] Mcpbunylob68[address] [place] [address]Dr. Bhavani Barragan Globulin (S) [Mass/Vol] 4.0 g/dL Normal [facility] Comment on above: Performed By: #### C MP ####[facility] Yvgqhqhfjw[address] [place], [place] [address]Dr. Bhavani Barragan Glucose [Mass/Vol] 151 mg/dL Critically high 74-106 [facility] Comment on above: Performed By: #### C MP ####[facility] Hjvuairapi[address] [place], [place] [address]Dr. Bhavani Barragan Potassium [Moles/Vol] 4.1 mmol/L Normal 3.5-5.1 [facility] Comment on above: Performed By: #### C MP ####[facility] Ahwrqsshcc[address] [place], [place] [address]Dr. Bhavani Barragan Protein [Mass/Vol] 6.9 g/dL Normal 6.4-8.2 The [facility] Comment on above: Performed By: #### C MP ####[facility] Xubfmvrzjl[address] [place], [place] [address]Dr. Bhavani Barragan Sodium [Moles/Vol] 136 mmol/L Normal 136-145 [facility] Comment on above: Performed By: #### C MP ####[facility] Advnqkqqjr[address] [place], [place] [address]Dr. Bhavani Barragan Urea nitrogen [Mass/Vol] 23.0 mg/dL Critically high 7.0-18.0 [facility] Comment on above: Performed By: #### C MP ####[facility] Bbgkyjbwsm[address] [place], [place] [address]Dr. Bhavani Barragan Urea nitrogen/Creatinine [Mass ratio] 14.6 mg/mg Normal [facility] Comment on above: Performed By: #### C MP ####[facility] Zanorbhzxf[address] [place], [place] [address]Dr. Bhavani Barragan URINE MICROSCOPIC ONLYon BACTERIA LARGE Abnormal NONE SEEN The [facility] Comment on above: Performed By: #### U MICRO, ERUR ####[facility] Uddloghylz[address] [place], [place] [address]Dr. Bhavani Barragan Bacteria identified Cx Nom (U) INDICATED Normal [facility] Comment on above: Performed By: #### U MICRO, ERUR ####[facility] Wbehseujiy56[address] [place] [address]Dr. Bhavani Barragan CAST NONE SEEN Normal NONE SEEN [facility] Comment on above: Performed By: #### U MICRO, ERUR ####[facility] Ejnnbdwiwk1257 [place] [address]Dr. Bhavani Barragan Crystals LM Nom (Urine sed) NONE SEEN Normal NONE SEEN [facility] Comment on above: Performed By: #### U MICRO, ERUR ####[facility] Knddedmrfw4716 [place] [address]Dr. Bhavani Barragan Epithelial cells LM Ql (Urine sed) FEW Abnormal NONE SEEN /RARE [facility] Comment on above: Performed By: #### U MICRO, ERUR ####[facility] Nqhghetwda4774 [place] [address]Dr. Bhavani Barragan MUCOUS NONE SEEN Normal NONE SEEN [facility] Comment on above: Performed By: #### U MICRO, ERUR ####[facility] Zlhkaonimy66[address] [place] [address]Dr. Bhavani Barragan RBC 2-5 Abnormal 0-2 [facility] Comment on above: Performed By: #### U MICRO, ERUR ####[facility] Dwygrfvugx7929 [place] [address]Dr. Bhavani Barragan WBC (U) [#/Vol] /uL Abnormal NONE SEEN [facility] Comment on above: Performed By: #### U MICRO, ERUR ####[facility] Jnynjulwwi[address] [place] [address]Dr. Bhavani Barragan US SINGLE QUAD RT UPPERon US SINGLE QUAD RT UPPER Normal [facility] XR CHEST 1 Von 03-22-2022 XR CHEST 1 V Normal [facility] CBC AND ELECTRONIC DIFFon Basophils (Bld) [#/Vol] 0.23 10*3/uL High 0.00-0.15 [facility] Comment on above: Performed By: #### R ETIC, [id number] #### [facility] (DEFAULT) [address] [place] [address] Basophils/100 WBC (Bld) 0.9 % Normal [facility] Comment on above: Performed By: #### R ETIC, [id number] #### [facility] (DEFAULT) [address] [place] [address] DIFF STATUS Electronic Differential Normal [facility] Comment on above: Performed By: #### R ETIC, [id number] #### [facility] (DEFAULT) [address] [place] [address] Eosinophils (Bld) [#/Vol] 10*3/uL Normal 0.00-0.42 [facility] Comment on above: Performed By: #### R ETIC, [id number] #### [facility] (DEFAULT) [address] [place] [address] Eosinophils/100 WBC (Bld) 0.0 % Normal [facility] Comment on above: Performed By: #### R ETIC, [id number] #### [facility] (DEFAULT) [address] [place] [address]62 Hematocrit (Bld) [Volume fraction] 52.1 % High 34.9-44.3 [facility] Comment on above: Performed By: #### R ETIC, [id number] #### [facility] (DEFAULT) [address] [place] [address] Hemoglobin (Bld) [Mass/Vol] 16.8 g/dL High 11.4-15.2 [facility] Comment on above: Performed By: #### R ETIC, [id number] #### [facility] (DEFAULT) [address] [address] Immature Grans % 1.3 % Normal [facility] Comment on above: Performed By: #### R ETIC, [id number] #### [facility] (DEFAULT) [address] [place] [address] Immature Grans Absolute 0.34 K/uL High <=0.09 [facility] Comment on above: Performed By: #### R ETIC, [id number] #### [facility] (DEFAULT) [address] [place] [address] Lymphocytes (Bld) [#/Vol] 1.24 10*3/uL Normal 1.16-3.51 [facility] Comment on above: Performed By: #### R ETIC, [id number] #### [facility] (DEFAULT) [address] [place] [address]6847 Lymphocytes/100 WBC (Bld) 4.9 % Normal [facility] Comment on above: Performed By: #### R ETIC, [id number] #### [facility] (DEFAULT) [address] [address] MCV (RBC) [Entitic vol] 97.4 fL Normal 79.6-97.7 [facility] Comment on above: Performed By: #### R ETIC, [id number] #### [facility] (DEFAULT) [address] [place] [address]387 Mean Cell Hgb 31.4 pg Normal 25.9-33.9 [facility] Comment on above: Performed By: #### R ETIC, [id number] #### [facility] (DEFAULT) [address] [address] Mean Cell Hgb Conc 32.2 g/dL Normal 31.4-35.9 [facility] Comment on above: Performed By: #### R ETIC, [id number] #### [facility] (DEFAULT) [address] [place] [address]39 Monocytes (Bld) [#/Vol] 0.47 10*3/uL Normal 0.22-0.87 [facility] Comment on above: Performed By: #### R ETIC, [id number] #### [facility] (DEFAULT) [address] [place] [address] Monocytes/100 WBC (Bld) 1.9 % Normal [facility] Comment on above: Performed By: #### R ETIC, [id number] #### [facility] (DEFAULT) [address] [address] Nucleated RBC 0.1 /100 WBC Normal <=0.2 [facility] Comment on above: Performed By: #### R ETIC, [id number] #### [facility] (DEFAULT) [address] [address] Platelet mean volume (Bld) [Entitic vol] 11.1 fL Normal 8.5-12.2 [facility] Comment on above: Performed By: #### R KELLYC, [id number] #### [facility] (DEFAULT) [address] [address] Platelets (Bld) [#/Vol] 174 10*3/uL Normal 150-393 [facility] Comment on above: Performed By: #### R ETIC, [id number] #### [facility] (DEFAULT) [address] [address] RBC (Bld) [#/Vol] 5.35 10*6/uL High 3.91-5.04 [facility] Comment on above: Performed By: #### R ETIC, [id number] #### [facility] (DEFAULT) [address] [address] RBC Distribution 16.3 % High 10.8-14.9 [facility] Comment on above: Performed By: #### R ETIC, [id number] #### [facility] (DEFAULT) [address] [address] Segs + Bands Auto 91.0 % Normal [facility] Comment on above: Performed By: #### R ETIC, [id number] #### [facility] (DEFAULT) [address] [address] Segs + Bands,Absolute Auto 23.08 K/uL High 1.64-7.28 [facility] Comment on above: Performed By: #### R ETIC, [id number] #### [facility] (DEFAULT) [address] [place] [address] WBC (Bld) [#/Vol] 25.37 10*3/uL High 3.99-11.19 [facility] Comment on above: Performed By: #### R KERLINE, [id number] #### [facility] (DEFAULT) [address] [place] [address] CMPN WITHOUT GLUCOSEon 11-02 Albumin [Mass/Vol] 4.3 g/dL Normal 3.5-5.0 [facility] Comment on above: Performed By: #### C MPNG #### [facility] (DEFAULT) [address] [place] [address] ALP [Catalytic activity/Vol] 80 U/L Normal 32-126 [facility] Comment on above: Performed By: #### C MPNG #### [facility] (DEFAULT) [address] [place] [address]44 ALT [Catalytic activity/Vol] 8 U/L Low 9-48 [facility] Comment on above: Performed By: #### C MPNG #### [facility] (DEFAULT) [address] [place] [address]97 Anion gap [Moles/Vol] 13 mmol/L Normal 7-17 [facility] Comment on above: Performed By: #### C MPNG #### [facility] (DEFAULT) [address] [place] [address]8418 AST [Catalytic activity/Vol] 14 U/L Normal 14-40 [facility] Comment on above: Performed By: #### C MPNG #### [facility] (DEFAULT) [address] [address] Bilirubin [Mass/Vol] 0.5 mg/dL Normal <1.5 [facility] Comment on above: Performed By: #### C MPNG #### [facility] (DEFAULT) [address] [place] [address] Calcium [Mass/Vol] 9.1 mg/dL Normal 8.6-10.5 [facility] Comment on above: Performed By: #### C MPNG #### [facility] (DEFAULT) [address] [place] [address]479 Chloride [Moles/Vol] 108 mmol/L Normal 98-108 [facility] Comment on above: Performed By: #### C MPNG #### [facility] (DEFAULT) [address] [place] [address] CO2 [Moles/Vol] 21 mmol/L Low 22-30 [facility] Comment on above: Performed By: #### C MPNG #### [facility] [facility] (DEFAULT) [address] [place] [address] 97598 Creatinine [Mass/Vol] 1.36 mg/dL High 0.50-1.20 [facility] Comment on above: Performed By: #### C MPNG #### [facility] (DEFAULT) [address] [place] [address] 90826 EST GFR, 45 mL/min/1.73sqM Low >=60 [facility] Comment on above: Performed By: #### C MPNG #### [facility] (DEFAULT) [address] [place] [address] 45974 EST GFR,Non 37 mL/min/1.73sqM Low >=60 [facility] Comment on above: Performed By: #### C MPNG #### [facility] (DEFAULT) [address] [place] [address] 34578 Potassium [Moles/Vol] 5.0 mmol/L Normal 3.5-5.0 [facility] Comment on above: Performed By: #### C MPNG #### [facility] (DEFAULT) [address] [place] [address] 80915 Protein [Mass/Vol] 7.6 g/dL Normal 6.4-8.3 [facility] Comment on above: Performed By: #### C MPNG #### [facility] (DEFAULT) [address] [place] [address] 08925 Sodium [Moles/Vol] 137 mmol/L Normal 133-143 [facility] Comment on above: Performed By: #### C MPNG #### [facility] (DEFAULT) [address] [place] [address] 80607 Urea nitrogen [Mass/Vol] 42 mg/dL High 06-08 [facility] Comment on above: Performed By: #### C MPNG #### [facility] (DEFAULT) [address] [place] [address] 70295 Urea nitrogen/Creatinine [Mass ratio] 31 mg/mg Normal [facility] Comment on above: Performed By: #### C MPNG #### [facility] (DEFAULT) [address] [place] [address] 65826 FERRITINon 11-02-2021 Ferritin [Mass/Vol] 19.2 ng/mL Normal 10.0-291.0 [facility] Comment on above: Performed By: #### F ERIB #### [facility] (DEFAULT) [address] [place] [address] 05128 RETICULOCYTESon 11-02-2021 Retic Absolute 0.1177 M/uL High 0.0324-0.114 2 [facility] Comment on above: Performed By: #### R ETIC, [id number] #### [facility] (DEFAULT) [address] [place] [address] 17277 Retic Count 2.20 % Normal 0.74-2.54 [facility] Comment on above: Performed By: #### R ETIC, [id number] #### [facility] (DEFAULT) [address] [place] [address] 10575 CBC AND ELECTRONIC DIFFon Basophils (Bld) [#/Vol] 0.20 10*3/uL High 0.00-0.15 [facility] Comment on above: Performed By: #### L [id number] #### [facility] (DEFAULT) [address] [place] [address] 84320 Basophils/100 WBC (Bld) 0.9 % Normal [facility] Comment on above: Performed By: #### L [id number] #### [facility] (DEFAULT) [address] [place] [address] 92332 DIFF STATUS Electronic Differential Normal [facility] Comment on above: Performed By: #### L [id number] #### [facility] (DEFAULT) [address] [place] [address] 21658 Eosinophils (Bld) [#/Vol] 10*3/uL Normal 0.00-0.42 [facility] Comment on above: Performed By: #### L [id number] #### [facility] (DEFAULT) [address] [place] [address] 97916 Eosinophils/100 WBC (Bld) 0.1 % Normal [facility] Comment on above: Performed By: #### L AB980 #### [facility] (DEFAULT) [address] [place] [address] 00875 Hematocrit (Bld) [Volume fraction] 47.4 % High 34.9-44.3 [facility] Comment on above: Performed By: #### L AB980 #### [facility] (DEFAULT) [address] [place] [address] 70355 Hemoglobin (Bld) [Mass/Vol] 15.4 g/dL High 11.4-15.2 [facility] Comment on above: Performed By: #### L AB980 #### [facility] (DEFAULT) [address] [place] [address] 57560 Immature Grans % 3.0 % Normal [facility] Comment on above: Performed By: #### L AB980 #### [facility] (DEFAULT) [address] [place] [address] 28286 Immature Grans Absolute 0.67 K/uL High <=0.09 [facility] Comment on above: Performed By: #### L [id number] #### [facility] (DEFAULT) [address] [place] [address] 71470 Lymphocytes (Bld) [#/Vol] 1.12 10*3/uL Low 1.16-3.51 [facility] Comment on above: Performed By: #### L AB980 #### [facility] (DEFAULT) [address] [place] [address] 06031 Lymphocytes/100 WBC (Bld) 5.0 % Normal [facility] Comment on above: Performed By: #### L AB980 #### [facility] (DEFAULT) [address] [address] MCV (RBC) [Entitic vol] 101.5 fL High 79.6-97.7 [facility] Comment on above: Performed By: #### L AB980 #### [facility] (DEFAULT) [address] [address] Mean Cell Hgb 33.0 pg Normal 25.9-33.9 [facility] Comment on above: Performed By: #### L AB980 #### [facility] (DEFAULT) [address] [address] Mean Cell Hgb Conc 32.5 g/dL Normal 31.4-35.9 [facility] Comment on above: Performed By: #### L AB980 #### [facility] (DEFAULT) [address] [address] Monocytes (Bld) [#/Vol] 0.51 10*3/uL Normal 0.22-0.87 [facility] Comment on above: Performed By: #### L AB980 #### [facility] (DEFAULT) [address] [address] Monocytes/100 WBC (Bld) 2.3 % Normal [facility] Comment on above: Performed By: #### L AB980 #### [facility] (DEFAULT) [address] [address] Nucleated RBC 0.1 /100 WBC Normal <=0.2 [facility] Comment on above: Performed By: #### L AB980 #### [facility] (DEFAULT) [address] [address] Platelet mean volume (Bld) [Entitic vol] 10.4 fL Normal 8.5-12.2 [facility] Comment on above: Performed By: #### L AB980 #### [facility] (DEFAULT) [address] [address] Platelets (Bld) [#/Vol] 289 10*3/uL Normal 150-393 [facility] Comment on above: Performed By: #### L AB980 #### [facility] (DEFAULT) [address] [address] RBC (Bld) [#/Vol] 4.67 10*6/uL Normal 3.91-5.04 [facility] Comment on above: Performed By: #### L AB980 #### [facility] (DEFAULT) [address] [address] RBC Distribution 14.8 % Normal 10.8-14.9 [facility] Comment on above: Performed By: #### L AB980 #### [facility] (DEFAULT) [address] [address] Segs + Bands Auto 88.7 % Normal [facility] Comment on above: Performed By: #### L AB980 #### [facility] (DEFAULT) [address] [address] Segs + Bands,Absolute Auto 20.03 K/uL High 1.64-7.28 [facility] Comment on above: Performed By: #### L AB980 #### [facility] (DEFAULT) [address] [address] WBC (Bld) [#/Vol] 22.56 10*3/uL High 3.99-11.19 [facility] Comment on above: Performed By: #### L AB980 #### [facility] (DEFAULT) [address] [place] [address] IMMUNOPHENOTYPING,PERIPH BLO ODon 08-17-2021 BKR DX CODE Use Ordering Normal [facility] Comment on above: Order Comment: IMMUN OPHENOTYPING DIAGNOSIS PATIENT NAME: MARÍA ELENA TAFOYA : 1940 ACCN#: [id number] REVIEWED BY: LAURA Moreno [id number] SAMPLE TYPE: Peripheral Blood LABORATORY INTERPRETATION: There [...] % are B cells (CD19+) with a [place]:Lambda ratio of 2:2 , 73.5 % are T cells (CD3+) with a CD4:CD8 ratio of 2.2 and an absolute CD4+/CD3+ count of 549 ABS/mm3 and 23.7 % are NK cells (positive for CD56 and/or CD16 and negative for CD3). ==== MARKER DESCRIPTION LYM REG% ABS/mm3 NORMAL % NML ABS ==== ABSOLUTE LYMPHOCYTE COUNT [phone] ==== CD19+ B CELL 4.4 49 2.0-21.0 [...] determined The Flow Cytometry Laboratory at [facility]. It has not been cleared or approved by the FDA. This laboratory is certified under the Clinical Laboratory Improvement Amendments (CLIA) as qualified to perform high complexity clinical laboratory testing. This test is used for clinical purposes. It should not be regarded as investigational or for research. The [facility] Flow Cytometry Laboratory lower limit of CLL MRD detection is 0.1% of the gated lymphocytes. Performed By: #### P BIPP #### [facility] (DEFAULT) [address] [place] [address] Flow Interpretation See Comment Normal [facility] Comment on above: Order Comment: IMMUN OPHENOTYPING DIAGNOSIS PATIENT NAME: MARÍA ELENA TAFOYA : 1940 ACCN#: [id number] REVIEWED BY: LAURA Moreno [id number] SAMPLE TYPE: Peripheral Blood LABORATORY INTERPRETATION: There [...] % are B cells (CD19+) with a [place]:Lambda ratio of 2:2 , 73.5 % are T cells (CD3+) with a CD4:CD8 ratio of 2.2 and an absolute CD4+/CD3+ count of 549 ABS/mm3 and 23.7 % are NK cells (positive for CD56 and/or CD16 and negative for CD3). ==== MARKER DESCRIPTION LYM REG% ABS/mm3 NORMAL % NML ABS ==== ABSOLUTE LYMPHOCYTE COUNT [phone] ==== CD19+ B CELL 4.4 49 2.0-21.0 [...] determined The Flow Cytometry Laboratory at [facility]. It has not been cleared or approved by the FDA. This laboratory is certified under the Clinical Laboratory Improvement Amendments (CLIA) as qualified to perform high complexity clinical laboratory testing. This test is used for clinical purposes. It should not be regarded as investigational or for research. The [facility] Flow Cytometry Laboratory lower limit of CLL MRD detection is 0.1% of the gated lymphocytes. Performed By: #### P BIPP #### [facility] (DEFAULT) [address] [place] [address] Flow Interpreted by: Efrem Charlton MD [facility] Comment on above: Order Comment: IMMUN OPHENOTYPING DIAGNOSIS PATIENT NAME: MARÍA ELENA TAFOYA : 1940 ACCN#: [id number] REVIEWED BY: LAURA Moreno [id number] SAMPLE TYPE: Peripheral Blood LABORATORY INTERPRETATION: There [...] % are B cells (CD19+) with a [place]:Lambda ratio of 2:2 , 73.5 % are T cells (CD3+) with a CD4:CD8 ratio of 2.2 and an absolute CD4+/CD3+ count of 549 ABS/mm3 and 23.7 % are NK cells (positive for CD56 and/or CD16 and negative for CD3). ==== MARKER DESCRIPTION LYM REG% ABS/mm3 NORMAL % NML ABS ==== ABSOLUTE LYMPHOCYTE COUNT [phone] ==== CD19+ B CELL 4.4 49 2.0-21.0 [...] determined The Flow Cytometry Laboratory at [facility]. It has not been cleared or approved by the FDA. This laboratory is certified under the Clinical Laboratory Improvement Amendments (CLIA) as qualified to perform high complexity clinical laboratory testing. This test is used for clinical purposes. It should not be regarded as investigational or for research. The [facility] Flow Cytometry Laboratory lower limit of CLL MRD detection is 0.1% of the gated lymphocytes. Performed By: #### P BIPP #### [facility] (DEFAULT) [address] [address] [id number] MUTATION DETECTION , BLOODon 08-17-2021 Receiving Status Accessioned in Lab Normal [facility] Comment on above: Performed By: #### J AK2B #### [facility] (DEFAULT) [address] [place] [address]46 Performed By: #### B CRSCR #### [facility] (DEFAULT) [address] [place] [address] 38989 CBC with Differentialon 01-17 Basophils (Bld) [#/Vol] 0.20 thou/mcL Normal 0.00-0.20 [facility] Comment on above: Performed By: #### 5 7021-8 #### [facility] [address] [place] [address] 36576 Basophils/100 WBC (Bld) 0.9 % Normal 0.0-2.0 [facility] Comment on above: Performed By: #### 5 7021-8 #### [facility] [address] [place] [address] 74339 Eosinophils (Bld) [#/Vol] 0.00 thou/mcL Normal 0.00-0.70 [facility] Comment on above: Performed By: #### 5 7021-8 #### [facility] [address] [place] [address] 29407 Eosinophils/100 WBC (Bld) 0.1 % Normal 0.0-7.0 [facility] Comment on above: Performed By: #### 5 7021-8 #### [facility] [address] [place] [address] 66021 Erythrocyte distribution width (RBC) [Entitic vol] 17.1 % High 11.0-14.8 [facility] Comment on above: Performed By: #### 5 7021-8 #### [address] [address] Hematocrit (Bld) [Volume fraction] 36.3 % Normal 35.0-45.0 [facility] Comment on above: Performed By: #### 5 7021-8 #### [address] [address] Hemoglobin (Bld) [Mass/Vol] 11.8 g/dL Low 12.0-16.0 [facility] Comment on above: Performed By: #### 5 7021-8 #### [address] [address] Lymphocytes (Bld) [#/Vol] 1.40 thou/mcL Normal 1.00-4.80 [facility] Comment on above: Performed By: #### 5 7021-8 #### [address] [address] Lymphocytes/100 WBC (Bld) 7.1 % Low 22.0-44.0 [facility] Comment on above: Performed By: #### 5 7021-8 #### [address] [address] MCH (RBC) [Entitic mass] 33.0 Picograms Normal 27.0-34.0 [facility] Comment on above: Performed By: #### 5 7021-8 #### [address] [address] MCHC (RBC) [Mass/Vol] 32.5 g/dL Normal 32.0-36.0 [facility] Comment on above: Performed By: #### 5 7021-8 #### [address] [address] MCV (RBC) [Entitic vol] 101.7 fL High 80.0-97.0 [facility] Comment on above: Performed By: #### 5 7021-8 #### [address] [address] Monocytes (Bld) [#/Vol] 0.50 thou/mcL Normal 0.00-0.90 [facility] Comment on above: Performed By: #### 5 7021-8 #### [facility] [address] [place] [address]87 Monocytes/100 WBC (Bld) 2.7 % Normal 0.0-12.0 [facility] Comment on above: Performed By: #### 5 7021-8 #### [facility] [address] [place] [address] 63514 Neutrophils (Bld) [#/Vol] 18.10 thou/mcL High 1.80-7.70 [facility] Comment on above: Performed By: #### 5 7021-8 #### [facility] [address] [place] [address]791 Neutrophils/100 WBC (Bld) 89.2 % High 40.0-70.0 [facility] Comment on above: Performed By: #### 5 7021-8 #### [facility] [address] [place] [address]58 Platelet mean volume (Bld) [Entitic vol] 8.2 fL Normal 6.2-12.1 [facility] Comment on above: Performed By: #### 5 7021-8 #### [facility] [address] [place] [address]00 Platelets (Bld) [#/Vol] 355 thou/mcL Normal 142-424 [facility] Comment on above: Performed By: #### 5 7021-8 #### [facility] [address] [place] [address]281 RBC (Bld) [#/Vol] 3.57 million/mcL Low 3.80-5.10 [facility] Comment on above: Performed By: #### 5 7021-8 #### [facility] [address] [place] [address] WBC (Bld) [#/Vol] 20.3 thou/mcL High 4.6-10.2 [facility] Comment on above: Performed By: #### 5 7021-8 #### [facility] [address] [place] [address] Ammoniaon 09-27-2020 Ammonia (P) [Mass/Vol] 21 umol/L Normal 9-30 [facility] Comment on above: Order Comment: Items in this order include: Ammonia Testing Performed By: [facility] [address] [place] [address]. [place] [address] Dr. Donnie Jean, Commodities Broker Items in this order include: Ammonia Testing Performed By: [facility] [address] [place], [place] [id number] Dr. Donnie Jean, Commodities Broker Performed By: #### C 709 #### [facility]. [address] [place] [address] [place] [address] B12/Folateon 09-27-2020 Cobalamin (Vitamin B12) [Mass/Vol] 683 pg/mL Normal 239-931 [facility] Comment on above: Order Comment: Items in this order include: Culture, Urine Testing Performed By: [facility] [address] [place] [address] [address] [address] Donnie Jean, Commodities Broker Result Comment: Plea se note: Over the counter high dose supplements of Biotin that are 20 to 300 times greater than the adequate daily intake of 30 mcg/day for adults may cause a bias of 10% or more to be observed in the measured Vitamin B-12 concentrations. Performed By: #### C 734 #### [facility] [address] [place] [address] [address] [place] [address] Folate 9.26 ng/mL Normal 2.80-20.00 [facility] Comment on above: Order Comment: Items in this order include: Culture, Urine Testing Performed By: [facility] [address] [place] [address] Donnie Jean, Commodities Broker Result Comment: Plea se note: Over the counter high dose supplements of Biotin that are 20 to 300 times greater than the adequate daily intake of 30 mcg/day for adults may cause a bias of 10% or more to be observed in the measured Folate concentrations. Performed By: #### C 734 #### [facility] [address] [place] [address] CBC with differentialon 09-18 Erythrocyte distribution width (RBC) [Ratio] 15.4 % Normal 11.5-15.5 [facility] Comment on above: Order Comment: Items in this order include: Culture, Urine Testing Performed By: [facility] [address] [place] [address] Dr. Donnie Jean, Commodities Broker Performed By: #### C 734 #### [facility] [address] [place] [address] Hematocrit (Bld) [Volume fraction] 39.8 % Normal 37.0-47.0 [facility] Comment on above: Order Comment: Items in this order include: Culture, Urine Testing Performed By: [facility] [employer] [place] [address] Dr. Donnie Jean, Commodities Broker Performed By: #### C 734 #### [facility] [address] [place] [address] Hemoglobin (Bld) [Mass/Vol] 12.3 g/dL Normal 11.5-15.5 [facility] Comment on above: Order Comment: Items in this order include: Culture, Urine Testing Performed By: [facility] [employer] [place] [address] Dr. Donnie Jean, Commodities Broker Performed By: #### C 734 #### [facility] [address] [place] [address] MCH (RBC) [Entitic mass] 34.2 pg High 27.0-31.0 [facility] Comment on above: Order Comment: Items in this order include: Culture, Urine Testing Performed By: [facility] [address] [place] [address] Dr. Donnie Jean, Commodities Broker Performed By: #### C 734 #### [facility] [address] [place] [address] MCHC (RBC) [Mass/Vol] 30.9 g/dL Low 32.0-36.0 [facility] Comment on above: Order Comment: Items in this order include: Culture, Urine Testing Performed By: [facility] [address] [place] [address]. [place] [address] Dr. Donnie Jean, Commodities Broker Performed By: #### C 734 #### [facility] [address] [place] [address] [address] [place] [address] MCV (RBC) [Entitic vol] 110.6 fL High 78.0-100.0 [facility] Comment on above: Order Comment: Items in this order include: Culture, Urine Testing Performed By: [facility] [address] [place] [address]. [place] [address] Dr. Donnie Jean, Commodities Broker Performed By: #### C 734 #### [facility] [address] [place] [address] [address] [place] [address] Platelet mean volume (Bld) [Entitic vol] 10.2 fL Normal 8.9-12.6 [facility] Comment on above: Order Comment: Items in this order include: Culture, Urine Testing Performed By: [facility] [address] [place] [address]. [place] [address] Dr. Donnie Jean, Commodities Broker Performed By: #### C 734 #### [facility] [address] [place] [address] [address] [place] [address] Platelets (Bld) [#/Vol] 423 K CUMM High 130-400 [facility] Comment on above: Order Comment: Items in this order include: Culture, Urine Testing Performed By: [facility] [address] [place] [address]. [place] [address] Dr. Donnie Jean, Commodities Broker Performed By: #### C 734 #### [facility] [address] [place] [address] [address] [place] [address] RBC (Bld) [#/Vol] 3.60 M CUMM Low 3.80-5.10 [facility] Comment on above: Order Comment: Items in this order include: Culture, Urine Testing Performed By: [facility] [address] [place] [address]. [place] [id number] Dr. Donnie Jean, Commodities Broker Performed By: #### C 734 #### [facility], [facility]. [address] [place] [address] [address] [place] [address] WBC (Bld) [#/Vol] 28.2 K CUMM Critically high 3.8-10.6 [facility] Comment on above: Order Comment: Items in this order include: Culture, Urine Testing Performed By: [facility] [address] [place] [address]. [place] [id number] Dr. Donnie Jean, Commodities Broker Performed By: #### C 734 #### [facility], [facility]. [address] [place] [address] [address] [place] [address] Comprehensive Metabolic Pane [facility] 09-27-2020 Albumin [Mass/Vol] 4.4 g/dL Normal 3.5-5.0 [facility] Comment on above: Order Comment: Items in this order include: Comprehensive Metabolic Panel, CBC with differential, TSH w/ reflex to FT4, B12/Folate, , , , Manual Differential if Indicated, Slide Scan, MicroscopeTesting Performed By: [facility] [address] [place] [address]. [place] [address] Dr. Donnie Jean, Commodities Broker Performed By: #### C 709 #### [facility], [facility]. [address] [place] [address] [address] [place] [address] Alk Phos 68 U/L Normal 23-159 [facility] Comment on above: Order Comment: Items in this order include: Comprehensive Metabolic Panel, CBC with differential, TSH w/ reflex to FT4, B12/Folate, , , , Manual Differential if Indicated, Slide Scan, MicroscopeTesting Performed By: [facility] [address] [place] [address]. [place] [address] Dr. Donnie Jean, Commodities Broker Performed By: #### C 709 #### [facility], [facility]. [address] [place] [address] [address] [place] [address] ALT [Catalytic activity/Vol] 15 U/L Normal 0-38 [facility] Comment on above: Order Comment: Items in this order include: Comprehensive Metabolic Panel, CBC with differential, TSH w/ reflex to FT4, B12/Folate, , , , Manual Differential if Indicated, Slide Scan, MicroscopeTesting Performed By: [facility] [address] [place] [address]. [place] [address] Dr. Donnie Jean, Commodities Broker Performed By: #### C 709 #### [facility], [facility]. [address] [place] [address] [address] [place] [address] AST [Catalytic activity/Vol] 21 U/L Normal 11-43 [facility] Comment on above: Order Comment: Items in this order include: Comprehensive Metabolic Panel, CBC with differential, TSH w/ reflex to FT4, B12/Folate, , , , Manual Differential if Indicated, Slide Scan, MicroscopeTesting Performed By: [facility] [address] [place] [address] [address] Donnie Jean, Commodities Broker Performed By: #### C 709 #### [facility], [facility]. [address] [place] [address] [address] [place] [address] Bilirubin [Mass/Vol] 0.5 mg/dL Normal 0.2-1.3 [facility] Comment on above: Order Comment: Items in this order include: Comprehensive Metabolic Panel, CBC with differential, TSH w/ reflex to FT4, B12/Folate, , , , Manual Differential if Indicated, Slide Scan, MicroscopeTesting Performed By: [facility] [address] [place] [address] [address] Donnie Jaen, Commodities Broker Performed By: #### C 709 #### [facility], [facility]. [address] [place] [address] [address] [place] [address] Calcium [Mass/Vol] 9.7 mg/dL Normal 8.5-10.[address] [facility] Comment on above: Order Comment: Items in this order include: Comprehensive Metabolic Panel, CBC with differential, TSH w/ reflex to FT4, B12/Folate, , , , Manual Differential if Indicated, Slide Scan, MicroscopeTesting Performed By: [facility] [address] [place] [address] Dr. Donnie Jean, Commodities Broker Performed By: #### C 709 #### [facility] [address] [place] [address] [address] [place] [address] Chloride [Moles/Vol] 111 mmol/L High 98-107 [facility] Comment on above: Order Comment: Items in this order include: Comprehensive Metabolic Panel, CBC with differential, TSH w/ reflex to FT4, B12/Folate, , , , Manual Differential if Indicated, Slide Scan, MicroscopeTesting Performed By: [facility] [address] [place] [address] Dr. Donnie Jean, Commodities Broker Performed By: #### C 709 #### [facility], [facility]. [address] [place] [address] [address] [place] [address] CO2 [Moles/Vol] 16.0 mmol/L Low 21.0-32.0 [facility] Comment on above: Order Comment: Items in this order include: Comprehensive Metabolic Panel, CBC with differential, TSH w/ reflex to FT4, B12/Folate, , , , Manual Differential if Indicated, Slide Scan, MicroscopeTesting Performed By: [facility] [address] [place] [address] Dr. Donnie Jean, Commodities Broker Performed By: #### C 709 #### [facility], [facility]. [address] [place] [address] [address] [place] [address] Creatinine [Mass/Vol] 1.6 mg/dL High 0.1-1.2 [facility] Comment on above: Order Comment: Items in this order include: Comprehensive Metabolic Panel, CBC with differential, TSH w/ reflex to FT4, B12/Folate, , , , Manual Differential if Indicated, Slide Scan, MicroscopeTesting Performed By: [facility] [address] [place] [address] Donnie Jean, Commodities Broker Performed By: #### C 709 #### [facility], [facility]. [address] [facility] [place] [address] GFR/1.73 sq M.predicted MDRD (S/P/Bld) [Vol rate/Area] 31 mL/min per 1.73 Low >60 [facility] Comment on above: Order Comment: Items in this order include: Comprehensive Metabolic Panel, CBC with differential, TSH w/ reflex to FT4, B12/Folate, , , , Manual Differential if Indicated, Slide Scan, MicroscopeTesting Performed By: [facility] [address] [place] [address] Dr. Donnie Jean, Commodities Broker Result Comment: The GFR estimate is not adjusted for race. If the patient's race is -[place], the GFR estimate must be multiplied by a factor of 1.21. Performed By: #### C 709 #### [facility], [facility]. [address] [place] [address] [address] [place] [id number] Glucose [Mass/Vol] 112 mg/dL High 74-100 [facility] Comment on above: Order Comment: Items in this order include: Comprehensive Metabolic Panel, CBC with differential, TSH w/ reflex to FT4, B12/Folate, , , , Manual Differential if Indicated, Slide Scan, MicroscopeTesting Performed By: [facility] [address] [place] [address] Dr. Donnie Jean, Commodities Broker Performed By: #### C 709 #### [facility], [facility]. [address] [place] [address] [place] [address] Potassium [Moles/Vol] 5.4 mmol/L High 3.5-5.3 [facility] Comment on above: Order Comment: Items in this order include: Comprehensive Metabolic Panel, CBC with differential, TSH w/ reflex to FT4, B12/Folate, , , , Manual Differential if Indicated, Slide Scan, MicroscopeTesting Performed By: [facility] [address] [place] [address] Donnie Jean, Commodities Broker Performed By: #### C 709 #### [facility] [address] [place] [address] [address] [place] [address] Protein [Mass/Vol] 7.4 g/dL Normal 6.3-8.4 [facility] Comment on above: Order Comment: Items in this order include: Comprehensive Metabolic Panel, CBC with differential, TSH w/ reflex to FT4, B12/Folate, , , , Manual Differential if Indicated, Slide Scan, MicroscopeTesting Performed By: [facility] [address] [place] [address]. [place] [address] Dr. Donnie Jean, Commodities Broker Performed By: #### C 709 #### [facility], [facility]. [address] [place] [address] [place] [address] Sodium [Moles/Vol] 140 mmol/L Normal 135-145 [facility] Comment on above: Order Comment: Items in this order include: Comprehensive Metabolic Panel, CBC with differential, TSH w/ reflex to FT4, B12/Folate, , , , Manual Differential if Indicated, Slide Scan, MicroscopeTesting Performed By: [facility] [address] [place] [address] Donnie Jean, Commodities Broker Performed By: #### Jany 709 #### [facility], [facility]. [address] [place] [address] [place] [address] Urea nitrogen [Mass/Vol] 40 mg/dL High 6-22 [facility] Comment on above: Order Comment: Items in this order include: Comprehensive Metabolic Panel, CBC with differential, TSH w/ reflex to FT4, B12/Folate, , , , Manual Differential if Indicated, Slide Scan, MicroscopeTesting Performed By: [facility] [address] [place] [address] Donnie Jean, Commodities Broker Performed By: #### C 709 #### [facility], [facility]. [address] [place] [address] [address] [place] [address] Culture, Urineon 09-27-2020 RPT Microbiology results Normal [facility] Comment on above: Order Comment: Items in this order include: Culture, Urine Testing Performed By: [facility] [address] [place] [address], [place] [address] Dr. Donnie Jean, Commodities Broker Result Comment: Kaylee l Result: No growth at 24 hours. Performed By: #### C 734 #### [facility] [address] [place] [address] [address] [place] [address] Manual Differential if Indic atedon 09-27-2020 Anisocytosis Ql (Bld) SLIGHT Normal [facility] Comment on above: Order Comment: Items in this order include: Culture, Urine Testing Performed By: [facility] [address] [place] [address]. [place] [address] Dr. Donnie Jean, Commodities Broker Performed By: #### C 734 #### [facility] [address] [place] [address] [place] [address] Luna Cells SLIGHT Normal [facility] Comment on above: Order Comment: Items in this order include: Culture, Urine Testing Performed By: [facility] [address] [place] [address]. [place] [address] Dr. Donnie Jean, Commodities Broker Performed By: #### C 734 #### [facility] [address] [place] [address] [place] [address] Lymphocytes 2 % Low 20-51 [facility] Comment on above: Order Comment: Items in this order include: Culture, Urine Testing Performed By: [facility] [address] [place] [address]. [place] [address] Dr. Donnie Jean, Commodities Broker Performed By: #### C 734 #### [facility] [address] [place] [address] [address] [place] [address] Macrocytes Ql (Bld) SLIGHT Normal [facility] Comment on above: Order Comment: Items in this order include: Culture, Urine Testing Performed By: [facility] [address] [place] [address]. [place] [address] Dr. Donnie Jean, Commodities Broker Performed By: #### C 734 #### [facility] [address] [place] [address] [address] [place] [address] Metamyelocytes 1 % Normal <2 [facility] Comment on above: Order Comment: Items in this order include: Culture, Urine Testing Performed By: [facility] [address] [place] [address] Dr. Donnie Jean, Commodities Broker Performed By: #### C 734 #### [facility] [address] [place] [address] Monocytes 2 % Normal 2-9 [facility] Comment on above: Order Comment: Items in this order include: Culture, Urine Testing Performed By: [facility] [address] [place] [address] Dr. Donnie Jean, Commodities Broker Performed By: #### C 734 #### [facility] [address] [place] [address] Neutrophils 95 % High 42-75 [facility] Comment on above: Order Comment: Items in this order include: Culture, Urine Testing Performed By: [facility] [address] [place] [address] Dr. Donnie Jean, Commodities Broker Performed By: #### C 734 #### [facility] [address] [place] [address] Ovalocytes SLIGHT Normal [facility] Comment on above: Order Comment: Items in this order include: Culture, Urine Testing Performed By: [facility] [address] [place] [address] Dr. Donnie Jean, Commodities Broker Performed By: #### C 734 #### [facility] [address] [place] [address] Poikilocytosis MODERATE Normal [facility] Comment on above: Order Comment: Items in this order include: Culture, Urine Testing Performed By: [facility] [address] [place] [address] Dr. Donnie Jean, Commodities Broker Performed By: #### C 734 #### [facility] [address] [place] [address] Polychromasia SLIGHT Normal [facility] Comment on above: Order Comment: Items in this order include: Culture, Urine Testing Performed By: [facility] [address] [place] [address]. [place] [address] Dr. Donnie Jean, Commodities Broker Performed By: #### C 734 #### [facility] [address] [place] [address] [address] [place] [address] Target Cells SLIGHT Normal [facility] Comment on above: Order Comment: Items in this order include: Culture, Urine Testing Performed By: [facility] [address] [place] [address]. [place] [address] Dr. Donnie Jean, Commodities Broker Performed By: #### C 734 #### [facility] [address] [place] [address] [address] [place] [address] Slide Scan, Microscopeon Platelets (Bld) [#/Vol] RESULTS MAY BE INACCURATE DUE TO PLATELET CLUMPING; SUGGEST REDRAW PLT COUNT IN BLUE-TOP (CITRATED TUBE). ALL OTHER CBC PARAMETERS ARE UNAFFECTED BY THIS IN VITRO PHENOMENON. Normal [facility] Comment on above: Order Comment: Items in this order include: Culture, Urine Testing Performed By: [facility] [address] [place] [address]. [place] [address] Dr. Donnie Jean, Commodities Broker Performed By: #### C 734 #### [facility] [address] [place] [address] [address] [place] [address] TSH w/ reflex to FT4on 09-27 TSH Qn 4.30 MIU/mL Normal 0.50-6.00 [facility] Comment on above: Order Comment: Items in this order include: Culture, Urine Testing Performed By: [facility] [address] [place] [address]. [place] [address] Dr. Donnie Jean, Commodities Broker Performed By: #### C 734 #### [facility] [address] [place] [address] [place] [address] CBC with differentialon 08-0 4-2020 Erythrocyte distribution width (RBC) [Ratio] 15.4 % Normal 11.5-15.5 [facility] Comment on above: Order Comment: Items in this order include: Comprehensive Metabolic Panel, Lipid Panel, Uric Acid , Vit D 25 [place] (Total), CBC with differential, HgbA1C, , , , Slide Scan if Indicated, Manual Differential if IndicatedTesting Performed By: [facility] [address] [place] [address]. [place] [address] Dr. Donnie Jean, Commodities Broker Performed By: #### C 709 #### [facility], [facility]. [address] [place] [address] [place] [address] Hematocrit (Bld) [Volume fraction] 37.9 % Normal 37.0-47.0 [facility] Comment on above: Order Comment: Items in this order include: Comprehensive Metabolic Panel, Lipid Panel, Uric Acid , Vit D 25 [place] (Total), CBC with differential, HgbA1C, , , , Slide Scan if Indicated, Manual Differential if IndicatedTesting Performed By: [facility] [address] [place] [address] [address] [address] Donnie Jean, Commodities Broker Performed By: #### C 709 #### [facility], [facility]. [address] [place] [address] [place] [address] Hemoglobin (Bld) [Mass/Vol] 12.1 g/dL Normal 11.5-15.5 [facility] Comment on above: Order Comment: Items in this order include: Comprehensive Metabolic Panel, Lipid Panel, Uric Acid , Vit D 25 [place] (Total), CBC with differential, HgbA1C, , , , Slide Scan if Indicated, Manual Differential if IndicatedTesting Performed By: [facility] [address] [place] [address] [address] [address] Donnie Jean, Commodities Broker Performed By: #### C 709 #### [facility], [facility]. [address] [place] [address] [place] [address] MCH (RBC) [Entitic mass] 35.7 pg High 27.0-31.0 [facility] Comment on above: Order Comment: Items in this order include: Comprehensive Metabolic Panel, Lipid Panel, Uric Acid , Vit D 25 [place] (Total), CBC with differential, HgbA1C, , , , Slide Scan if Indicated, Manual Differential if IndicatedTesting Performed By: [facility] [address] [place] [address] Dr. Donnie Jean, Commodities Broker Performed By: #### C 709 #### [facility], [facility]. [address] [place] [address] [place] [address] MCHC (RBC) [Mass/Vol] 31.9 g/dL Low 32.0-36.0 [facility] Comment on above: Order Comment: Items in this order include: Comprehensive Metabolic Panel, Lipid Panel, Uric Acid , Vit D 25 [place] (Total), CBC with differential, HgbA1C, , , , Slide Scan if Indicated, Manual Differential if IndicatedTesting Performed By: [facility] [address] [place] [address] Dr. Donnie Jean, Commodities Broker Performed By: #### C 709 #### [facility], [facility]. [address] [place] [address] [place] [address] MCV (RBC) [Entitic vol] 111.8 fL High 78.0-100.0 [facility] Comment on above: Order Comment: Items in this order include: Comprehensive Metabolic Panel, Lipid Panel, Uric Acid , Vit D 25 [place] (Total), CBC with differential, HgbA1C, , , , Slide Scan if Indicated, Manual Differential if IndicatedTesting Performed By: [facility] [address] [place] [address] [address] [address] Donnie Jean, Commodities Broker Performed By: #### C 709 #### [facility], [facility]. [address] [place] [address] [place] [address] Platelet mean volume (Bld) [Entitic vol] 10.5 fL Normal 8.9-12.6 [facility] Comment on above: Order Comment: Items in this order include: Comprehensive Metabolic Panel, Lipid Panel, Uric Acid , Vit D 25 [place] (Total), CBC with differential, HgbA1C, , , , Slide Scan if Indicated, Manual Differential if IndicatedTesting Performed By: [facility] [address] [place] [address]. [place] [address] Dr. Donnie Jean, Commodities Broker Performed By: #### C 709 #### [facility], [facility]. [address] [place] [address] [address] [place] [address] Platelets (Bld) [#/Vol] 356 K CUMM Normal 130-400 [facility] Comment on above: Order Comment: Items in this order include: Comprehensive Metabolic Panel, Lipid Panel, Uric Acid , Vit D 25 [place] (Total), CBC with differential, HgbA1C, , , , Slide Scan if Indicated, Manual Differential if IndicatedTesting Performed By: [facility] [address] [place] [address]. [place] [address] Dr. Donnie Jean, Commodities Broker Performed By: #### C 709 #### [facility], [facility]. [address] [place] [address] [address] [place] [address] RBC (Bld) [#/Vol] 3.39 M CUMM Low 3.80-5.10 [facility] Comment on above: Order Comment: Items in this order include: Comprehensive Metabolic Panel, Lipid Panel, Uric Acid , Vit D 25 [place] (Total), CBC with differential, HgbA1C, , , , Slide Scan if Indicated, Manual Differential if IndicatedTesting Performed By: [facility] [address] [place] [address]. [place] [address] Dr. Donnie Jean, Commodities Broker Performed By: #### C 709 #### [facility], [facility]. [address] [place] [address] [address] [place] [address] WBC (Bld) [#/Vol] 18.3 K CUMM High 3.8-10.6 [facility] Comment on above: Order Comment: Items in this order include: Comprehensive Metabolic Panel, Lipid Panel, Uric Acid , Vit D 25 [place] (Total), CBC with differential, HgbA1C, , , , Slide Scan if Indicated, Manual Differential if IndicatedTesting Performed By: [facility] [address] [place] [address]. [place] [address] Dr. Donnie Jean, Commodities Broker Performed By: #### C 709 #### [facility], [facility]. [address] [place] [address] [place] [address] Comprehensive Metabolic Pane donnie 06-21-2020 Albumin [Mass/Vol] 4.4 g/dL Normal 3.5-5.0 [facility] Comment on above: Order Comment: Items in this order include: Comprehensive Metabolic Panel, Lipid Panel, Uric Acid , Vit D 25 [place] (Total), CBC with differential, HgbA1C, , , , Slide Scan if Indicated, Manual Differential if IndicatedTesting Performed By: [facility] [address] [place] [address]. [place] [id number] Dr. Donnie Jean, Lab DirectorItems in this order include: Comprehensive Metabolic Panel, Lipid Panel, Uric Acid , Vit D 25 [place] (Total), CBC with differential, HgbA1C, , , , Manual Differential if Indicated Performed By: #### C 709 #### [facility] [address] [place] [address] [place] [address] Alk Phos 66 U/L Normal 23-159 [facility] Comment on above: Order Comment: Items in this order include: Comprehensive Metabolic Panel, Lipid Panel, Uric Acid , Vit D 25 [place] (Total), CBC with differential, HgbA1C, , , , Slide Scan if Indicated, Manual Differential if IndicatedTesting Performed By: [facility] [address] [place] [address]. [place] [address] Dr. Donnie Jean, Lab DirectorItems in this order include: Comprehensive Metabolic Panel, Lipid Panel, Uric Acid , Vit D 25 [place] (Total), CBC with differential, HgbA1C, , , , Manual Differential if Indicated Performed By: #### C 709 #### [facility] [address] [place] [address] [address] [place] [address] ALT [Catalytic activity/Vol] 9 U/L Normal 0-38 [facility] Comment on above: Order Comment: Items in this order include: Comprehensive Metabolic Panel, Lipid Panel, Uric Acid , Vit D 25 [place] (Total), CBC with differential, HgbA1C, , , , Slide Scan if Indicated, Manual Differential if IndicatedTesting Performed By: [facility] [address] [place] [address]. [place] [address] Dr. Donnie Jean, Lab DirectorItems in this order include: Comprehensive Metabolic Panel, Lipid Panel, Uric Acid , Vit D 25 [place] (Total), CBC with differential, HgbA1C, , , , Manual Differential if Indicated Performed By: #### C 709 #### [facility] [address] [place] [address] [place] [address] AST [Catalytic activity/Vol] 17 U/L Normal 11-43 [facility] Comment on above: Order Comment: Items in this order include: Comprehensive Metabolic Panel, Lipid Panel, Uric Acid , Vit D 25 [place] (Total), CBC with differential, HgbA1C, , , , Slide Scan if Indicated, Manual Differential if IndicatedTesting Performed By: [facility] [address] [place] [address]. [place] [address] Dr. Donnie Jean, Lab DirectorItems in this order include: Comprehensive Metabolic Panel, Lipid Panel, Uric Acid , Vit D 25 [place] (Total), CBC with differential, HgbA1C, , , , Manual Differential if Indicated Performed By: #### C 709 #### [facility] [address] [place] [address] [place] [address] Bilirubin [Mass/Vol] 0.3 mg/dL Normal 0.2-1.3 [facility] Comment on above: Order Comment: Items in this order include: Comprehensive Metabolic Panel, Lipid Panel, Uric Acid , Vit D 25 [place] (Total), CBC with differential, HgbA1C, , , , Slide Scan if Indicated, Manual Differential if IndicatedTesting Performed By: [facility] [address] [place] [address]. [place] [address] Dr. Donnie Jean, Lab DirectorItems in this order include: Comprehensive Metabolic Panel, Lipid Panel, Uric Acid , Vit D 25 [place] (Total), CBC with differential, HgbA1C, , , , Manual Differential if Indicated Performed By: #### C 709 #### [facility] [address] [place] [address] [address] [place] [address] Calcium [Mass/Vol] 10.1 mg/dL Normal 8.5-10.5 [facility] Comment on above: Order Comment: Items in this order include: Comprehensive Metabolic Panel, Lipid Panel, Uric Acid , Vit D 25 [place] (Total), CBC with differential, HgbA1C, , , , Slide Scan if Indicated, Manual Differential if IndicatedTesting Performed By: [facility] [address] [place] [address]. [place] [address] Dr. Donnie Jean, Lab DirectorItems in this order include: Comprehensive Metabolic Panel, Lipid Panel, Uric Acid , Vit D 25 [place] (Total), CBC with differential, HgbA1C, , , , Manual Differential if Indicated Performed By: #### C 709 #### [facility] [address] [place] [address] [place] [address] Chloride [Moles/Vol] 106 mmol/L Normal 98-107 [facility] Comment on above: Order Comment: Items in this order include: Comprehensive Metabolic Panel, Lipid Panel, Uric Acid , Vit D 25 [place] (Total), CBC with differential, HgbA1C, , , , Slide Scan if Indicated, Manual Differential if IndicatedTesting Performed By: [facility] [address] [place] [address] [address] [address] Donnie Jean, Lab DirectorItems in this order include: Comprehensive Metabolic Panel, Lipid Panel, Uric Acid , Vit D 25 [place] (Total), CBC with differential, HgbA1C, , , , Manual Differential if Indicated Performed By: #### C 709 #### [facility] [address] [place] [address] [place] [address] CO2 [Moles/Vol] 17.0 mmol/L Low 21.0-32.0 [facility] Comment on above: Order Comment: Items in this order include: Comprehensive Metabolic Panel, Lipid Panel, Uric Acid , Vit D 25 [place] (Total), CBC with differential, HgbA1C, , , , Slide Scan if Indicated, Manual Differential if IndicatedTesting Performed By: [facility] [address] [place] [address] [address] [address] Donnie Jean, Lab DirectorItems in this order include: Comprehensive Metabolic Panel, Lipid Panel, Uric Acid , Vit D 25 [place] (Total), CBC with differential, HgbA1C, , , , Manual Differential if Indicated Performed By: #### C 709 #### [facility], [facility]. [address] [place] [address] [place] [address] Creatinine [Mass/Vol] 1.5 mg/dL High 0.1-1.2 [facility] Comment on above: Order Comment: Items in this order include: Comprehensive Metabolic Panel, Lipid Panel, Uric Acid , Vit D 25 [place] (Total), CBC with differential, HgbA1C, , , , Slide Scan if Indicated, Manual Differential if IndicatedTesting Performed By: [facility] [address] [place] [address] Donnie Jean, Lab DirectorItems in this order include: Comprehensive Metabolic Panel, Lipid Panel, Uric Acid , Vit D 25 [place] (Total), CBC with differential, HgbA1C, , , , Manual Differential if Indicated Performed By: #### C 709 #### [address] [place] [address] GFR/1.73 sq M.predicted MDRD (S/P/Bld) [Vol rate/Area] 33 mL/min per 1.73 Low >60 [facility] Comment on above: Order Comment: Items in this order include: Comprehensive Metabolic Panel, Lipid Panel, Uric Acid , Vit D 25 [place] (Total), CBC with differential, HgbA1C, , , , Slide Scan if Indicated, Manual Differential if IndicatedTesting Performed By: [facility] [address] [place] [address] Donnie Jean, Lab DirectorItems in this order include: Comprehensive Metabolic Panel, Lipid Panel, Uric Acid , Vit D 25 [place] (Total), CBC with differential, HgbA1C, , , , Manual Differential if Indicated Result Comment: The GFR estimate is not adjusted for race. If the patient's race is -[place], the GFR estimate must be multiplied by a factor of 1.21. Performed By: #### C 709 #### [facility], [facility]. [address] [place] [address] [address] [place] [address] Glucose [Mass/Vol] 108 mg/dL High 74-100 [facility] Comment on above: Order Comment: Items in this order include: Comprehensive Metabolic Panel, Lipid Panel, Uric Acid , Vit D 25 [place] (Total), CBC with differential, HgbA1C, , , , Slide Scan if Indicated, Manual Differential if IndicatedTesting Performed By: [facility] [address] [place] [address] Donnie Jean, Lab DirectorItems in this order include: Comprehensive Metabolic Panel, Lipid Panel, Uric Acid , Vit D 25 [place] (Total), CBC with differential, HgbA1C, , , , Manual Differential if Indicated Performed By: #### C 709 #### [facility], [facility]. [address] [place] [address] [place] [address] Potassium [Moles/Vol] 4.7 mmol/L Normal 3.5-5.3 [facility] Comment on above: Order Comment: Items in this order include: Comprehensive Metabolic Panel, Lipid Panel, Uric Acid , Vit D 25 [place] (Total), CBC with differential, HgbA1C, , , , Slide Scan if Indicated, Manual Differential if IndicatedTesting Performed By: [facility] [address] [place] [address] Donnie Jean, Lab DirectorItems in this order include: Comprehensive Metabolic Panel, Lipid Panel, Uric Acid , Vit D 25 [place] (Total), CBC with differential, HgbA1C, , , , Manual Differential if Indicated Performed By: #### C 709 #### [facility], [facility]. [address] [place] [address] [address] [place] [address] Protein [Mass/Vol] 7.4 g/dL Normal 6.3-8.4 [facility] Comment on above: Order Comment: Items in this order include: Comprehensive Metabolic Panel, Lipid Panel, Uric Acid , Vit D 25 [place] (Total), CBC with differential, HgbA1C, , , , Slide Scan if Indicated, Manual Differential if IndicatedTesting Performed By: [facility] [address] [place] [address] [address] Donnie Jean, Lab DirectorItems in this order include: Comprehensive Metabolic Panel, Lipid Panel, Uric Acid , Vit D 25 [place] (Total), CBC with differential, HgbA1C, , , , Manual Differential if Indicated Performed By: #### C 709 #### [facility], [facility]. [address] [place] [address] [address] [place] [address] Sodium [Moles/Vol] 139 mmol/L Normal 135-145 [facility] Comment on above: Order Comment: Items in this order include: Comprehensive Metabolic Panel, Lipid Panel, Uric Acid , Vit D 25 [place] (Total), CBC with differential, HgbA1C, , , , Slide Scan if Indicated, Manual Differential if IndicatedTesting Performed By: [facility] [address] [place] [address]. [place] [address] Dr. Donnie Jean, Lab DirectorItems in this order include: Comprehensive Metabolic Panel, Lipid Panel, Uric Acid , Vit D 25 [place] (Total), CBC with differential, HgbA1C, , , , Manual Differential if Indicated Performed By: #### C 709 #### [facility], [facility]. [address] [place] [address] [place] [address] Urea nitrogen [Mass/Vol] 36 mg/dL High 6-22 [facility] Comment on above: Order Comment: Items in this order include: Comprehensive Metabolic Panel, Lipid Panel, Uric Acid , Vit D 25 [place] (Total), CBC with differential, HgbA1C, , , , Slide Scan if Indicated, Manual Differential if IndicatedTesting Performed By: [facility] [address] [place] [address]. [place] [address] Dr. Donnie Jean, Lab DirectorItems in this order include: Comprehensive Metabolic Panel, Lipid Panel, Uric Acid , Vit D 25 [place] (Total), CBC with differential, HgbA1C, , , , Manual Differential if Indicated Performed By: #### C 709 #### [facility], [facility]. [address] [place] [address] [address] [place] [address] [id number] 06-21-2020 HbA1c (Bld) [Mass fraction] 6.3 % High <5.7 [facility] Comment on above: Order Comment: Items in this order include: Comprehensive Metabolic Panel, Lipid Panel, Uric Acid , Vit D 25 [place] (Total), CBC with differential, HgbA1C, , , , Slide Scan if Indicated, Manual Differential if IndicatedTesting Performed By: [facility] [address] [place] [address]. [place] [address] Dr. Donnie Jean, Lab DirectorItems in this order include: Comprehensive Metabolic Panel, Lipid Panel, Uric Acid , Vit D 25 [place] (Total), CBC with differential, HgbA1C, , , , Manual Differential if Indicated Result Comment: Refe rence Interval: Normal: below 5.7%. Prediabetes: 5.7% to 6.4%. Diabetes: 6.5% or above. Performed By: #### C 709 #### [facility] [address] [place] [address] [place] [address] Lipid Panelon 06-21-2020 Cholesterol [Mass/Vol] 124 mg/dL Normal <200 [facility] Comment on above: Performed By: #### C 709 #### [facility] [address] [place] [address] [place] [address] Cholesterol in HDL [Mass/Vol] 34 mg/dL Low >50 [facility] Comment on above: Performed By: #### C 709 #### [facility] [address] [place] [address] [address] [place] [address] Cholesterol in LDL [Mass/Vol] 49 mg/dL Normal <130 [facility] Comment on above: Performed By: #### C 709 #### [facility] [address] [place] [address] [address] [place] [address] Cholesterol.total/C holesterol in HDL [Mass ratio] 3.6 {ratio} Normal <4.0 [facility] Comment on above: Performed By: #### C 709 #### [facility] [address] [place] [address] [address] [place] [address] Non-HDL Chol 90 Normal LDL Goal + 30 [facility] Comment on above: Result Comment: LDL and Non-HDL goal dependent upon individual risk Performed By: #### C 709 #### [facility] [address] [place] [address] [address] [place] [address] Triglyceride [Mass/Vol] 206 mg/dL High <150 [facility] Comment on above: Performed By: #### C 709 #### [facility] [address] [place] [address] [address] [place] [address] VLDL-Calc 41 mg/dl High <30 [facility] Comment on above: Performed By: #### C 709 #### [facility] [address] [place] [address] [address] [place] [address] Manual Differential if Indic atedon 06-21-2020 Anisocytosis Ql (Bld) MODERATE Normal [facility] Comment on above: Order Comment: Items in this order include: Comprehensive Metabolic Panel, Lipid Panel, Uric Acid , Vit D 25 [place] (Total), CBC with differential, HgbA1C, , , , Slide Scan if Indicated, Manual Differential if IndicatedTesting Performed By: [facility] [address] [place] [address] [address] [address] Donnie Jean, Lab DirectorItems in this order include: Comprehensive Metabolic Panel, Lipid Panel, Uric Acid , Vit D 25 [place] (Total), CBC with differential, HgbA1C, , , , Manual Differential if IndicatedReceived comment: User comments: Slide comments: Performed By: #### C 709 #### [facility] [address] [place] [address] [address] [place] [address] Basophils 1 % Normal [facility] Comment on above: Order Comment: Items in this order include: Comprehensive Metabolic Panel, Lipid Panel, Uric Acid , Vit D 25 [place] (Total), CBC with differential, HgbA1C, , , , Slide Scan if Indicated, Manual Differential if IndicatedTesting Performed By: [facility] [address] [place] [address] Donine Jean, Lab DirectorItems in this order include: Comprehensive Metabolic Panel, Lipid Panel, Uric Acid , Vit D 25 [place] (Total), CBC with differential, HgbA1C, , , , Manual Differential if IndicatedReceived comment: User comments: Slide comments: Performed By: #### C 709 #### [facility] [address] [place] [address] [address] [place] [address] Lymphocytes 7 % Low 20-51 [facility] Comment on above: Order Comment: Items in this order include: Comprehensive Metabolic Panel, Lipid Panel, Uric Acid , Vit D 25 [place] (Total), CBC with differential, HgbA1C, , , , Slide Scan if Indicated, Manual Differential if IndicatedTesting Performed By: [facility] [address] [place] [address]. [place] [address] Dr. Donnie Jean, Lab DirectorItems in this order include: Comprehensive Metabolic Panel, Lipid Panel, Uric Acid , Vit D 25 [place] (Total), CBC with differential, HgbA1C, , , , Manual Differential if IndicatedReceived comment: User comments: Slide comments: Performed By: #### C 709 #### [facility] [address] [place] [address] [address] [place] [address] Macrocytes Ql (Bld) SLIGHT Normal [facility] Comment on above: Order Comment: Items in this order include: Comprehensive Metabolic Panel, Lipid Panel, Uric Acid , Vit D 25 [place] (Total), CBC with differential, HgbA1C, , , , Slide Scan if Indicated, Manual Differential if IndicatedTesting Performed By: [facility] [address] [place] [address]. [place] [address] Dr. Donnie Jena, Lab DirectorItems in this order include: Comprehensive Metabolic Panel, Lipid Panel, Uric Acid , Vit D 25 [place] (Total), CBC with differential, HgbA1C, , , , Manual Differential if IndicatedReceived comment: User comments: Slide comments: Performed By: #### C 709 #### [facility] [address] [place] [address] [address] [place] [address] Metamyelocytes 3 % High <2 [facility] Comment on above: Order Comment: Items in this order include: Comprehensive Metabolic Panel, Lipid Panel, Uric Acid , Vit D 25 [place] (Total), CBC with differential, HgbA1C, , , , Slide Scan if Indicated, Manual Differential if IndicatedTesting Performed By: [facility] [address] [place] [address]. [place] [address] Dr. Donnie Jean, Lab DirectorItems in this order include: Comprehensive Metabolic Panel, Lipid Panel, Uric Acid , Vit D 25 [place] (Total), CBC with differential, HgbA1C, , , , Manual Differential if IndicatedReceived comment: User comments: Slide comments: Performed By: #### C 709 #### [facility] [address] [place] [address] [address] [place] [address] Microcytes SLIGHT Normal SLIGHT [facility] Comment on above: Order Comment: Items in this order include: Comprehensive Metabolic Panel, Lipid Panel, Uric Acid , Vit D 25 [place] (Total), CBC with differential, HgbA1C, , , , Slide Scan if Indicated, Manual Differential if IndicatedTesting Performed By: [facility] [address] [place] [address]. [place] [address] Dr. Donnie Jean, Lab DirectorItems in this order include: Comprehensive Metabolic Panel, Lipid Panel, Uric Acid , Vit D 25 [place] (Total), CBC with differential, HgbA1C, , , , Manual Differential if IndicatedReceived comment: User comments: Slide comments: Performed By: #### C 709 #### [facility] [address] [place] [address] Suite - [place] [id number] Neutrophils 89 % High 42-75 [facility] Comment on above: Order Comment: Items in this order include: Comprehensive Metabolic Panel, Lipid Panel, Uric Acid , Vit D 25 [place] (Total), CBC with differential, HgbA1C, , , , Slide Scan if Indicated, Manual Differential if IndicatedTesting Performed By: [facility] [address] [place] [address]. [place] [address] Dr. Donnie Jean, Lab DirectorItems in this order include: Comprehensive Metabolic Panel, Lipid Panel, Uric Acid , Vit D 25 [place] (Total), CBC with differential, HgbA1C, , , , Manual Differential if IndicatedReceived comment: User comments: Slide comments: Performed By: #### C 709 #### [facility] [address] [place] [address] [place] [address] Polychromasia SLIGHT Normal [facility] Comment on above: Order Comment: Items in this order include: Comprehensive Metabolic Panel, Lipid Panel, Uric Acid , Vit D 25 [place] (Total), CBC with differential, HgbA1C, , , , Slide Scan if Indicated, Manual Differential if IndicatedTesting Performed By: [facility] [address] [place] [address]. [place] [address] Dr. Donnie Jean, Lab DirectorItems in this order include: Comprehensive Metabolic Panel, Lipid Panel, Uric Acid , Vit D 25 [place] (Total), CBC with differential, HgbA1C, , , , Manual Differential if IndicatedReceived comment: User comments: Slide comments: Performed By: #### C 709 #### [facility] [address] [place] [address] [place] [address] Uric Acidon 06-21-2020 Urate [Mass/Vol] 9.0 mg/dL High 2.5-6.2 [facility] Comment on above: Performed By: #### C 709 #### [facility] [address] [place] [address] [place] [address] Vit D 25 [place] (Total)on 2019 Vit D 25 [place] (Total) 36.9 ng/ml Normal 31.0-100.0 [facility] Comment on above: Order Comment: Items in this order include: Comprehensive Metabolic Panel, Lipid Panel, Uric Acid , Vit D 25 [place] (Total), CBC with differential, HgbA1C, , , , Slide Scan if Indicated, Manual Differential if IndicatedTesting Performed By: [facility] [address] [place] [address]. [place] [address] Dr. Donnie Jean, Lab DirectorItems in this order include: Comprehensive Metabolic Panel, Lipid Panel, Uric Acid , Vit D 25 [place] (Total), CBC with differential, HgbA1C, , , , Manual Differential if Indicated Result Comment: Defi ciency <10 ng/ml Insufficiency 10-30 ng/ml Sufficiency 31-100 ng/ml Toxicity >100 ng/ml Performed By: #### C 709 #### [facility] [address] [place] [address] [place] [address] SHADY Mammo Digital Diag RT w t [...] by: OSKAR 02/03/2020 14:27 Technologist: PRINCE Cam [facility] Mammo Digital Screen bila t w mark(NB)on [...] will be immediately mailed to the patient. [facility] thanks you for the opportunity to care for your patient. Workstation ID: [id number] - [id number] FINAL REPORT Dictated By: Jazlyn Stuart MD 02/01/2020 14:28 Assigned Physician: Jazlyn Stuart MD Reviewed and Electronically Signed By: Jazlyn Stuart MD 02/01/2020 14:29 Transcribed by: OSKAR 02/01/2020 14:28 Technologist: JEROME Cam [facility] CBC with differentialon Erythrocyte distribution width (RBC) [Ratio] 14.7 % Normal 11.5-15.5 [facility] Comment on above: Order Comment: Items in this order include: Cholesterol, Comprehensive Metabolic Panel, Direct LDL , HDL, Uric Acid , CBC with differential, HgbA1C, , , Slide Scan if Indicated, Manual Differential if Indicated Testing Performed By: [facility] [address] [place], [place] [address] [place] [address] Dr. Donnie Jean, Commodities Broker Items in this order include: Cholesterol, Comprehensive Metabolic Panel, Direct LDL , HDL, Uric Acid , CBC with differential, HgbA1C, , , Slide Scan if Indicated, Manual Differential if Indicated Testing Performed By: [facility] [address] [place], [place] [address] [facility] [place] [address] Dr. Donnie Jean, Commodities Broker Items in this order include: Cholesterol, Comprehensive Metabolic Panel, Direct LDL , HDL, Uric Acid , CBC with differential, HgbA1C, , , Slide Scan if Indicated, Manual Differential if Indicated Testing Performed By: [facility] [address] [place], [place] [address] [place] [address] Dr. Donnie Jean, Commodities Broker Performed By: #### C 120, C141, C116, C406, C4521, C118, C47, C4523, C215 #### [facility] [address] [place] [address] [address] [place] [address] Hematocrit (Bld) [Volume fraction] 40.6 % Normal 37.0-47.0 [facility] Comment on above: Order Comment: Items in this order include: Cholesterol, Comprehensive Metabolic Panel, Direct LDL , HDL, Uric Acid , CBC with differential, HgbA1C, , , Slide Scan if Indicated, Manual Differential if Indicated Testing Performed By: [facility] [address] [place], [place] [address] [place] [address] Dr. Donnie Jean, Commodities Broker Items in this order include: Cholesterol, Comprehensive Metabolic Panel, Direct LDL , HDL, Uric Acid , CBC with differential, HgbA1C, , , Slide Scan if Indicated, Manual Differential if Indicated Testing Performed By: [facility] [address] [place] [address] Dr. Donnie Jean, Commodities Broker Items in this order include: Cholesterol, Comprehensive Metabolic Panel, Direct LDL , HDL, Uric Acid , CBC with differential, HgbA1C, , , Slide Scan if Indicated, Manual Differential if Indicated Testing Performed By: [facility] [address] [place] [address] Dr. Donnie Jean, Commodities Broker Performed By: #### C 120, C141, C116, C406, C4521, C118, C47, C4523, C215 #### [facility], [facility]. [address] [place] [address] [address] [place] [address] Hemoglobin (Bld) [Mass/Vol] 12.9 g/dL Normal 11.5-15.5 [facility] Comment on above: Order Comment: Items in this order include: Cholesterol, Comprehensive Metabolic Panel, Direct LDL , HDL, Uric Acid , CBC with differential, HgbA1C, , , Slide Scan if Indicated, Manual Differential if Indicated Testing Performed By: [facility] [address] [place] [address] Dr. Donnie Jean, Commodities Broker Items in this order include: Cholesterol, Comprehensive Metabolic Panel, Direct LDL , HDL, Uric Acid , CBC with differential, HgbA1C, , , Slide Scan if Indicated, Manual Differential if Indicated Testing Performed By: [facility] [address] [place] [address] Dr. Donnie Jean, Commodities Broker Items in this order include: Cholesterol, Comprehensive Metabolic Panel, Direct LDL , HDL, Uric Acid , CBC with differential, HgbA1C, , , Slide Scan if Indicated, Manual Differential if Indicated Testing Performed By: [facility] [address] [place] [address] Dr. Donnie Jean, Commodities Broker Performed By: #### C 120, C141, C116, C406, C4521, C118, C47, C4523, C215 #### [facility] [address] [place] [address] MCH (RBC) [Entitic mass] 35.1 pg High 27.0-31.0 [facility] Comment on above: Order Comment: Items in this order include: Cholesterol, Comprehensive Metabolic Panel, Direct LDL , HDL, Uric Acid , CBC with differential, HgbA1C, , , Slide Scan if Indicated, Manual Differential if Indicated Testing Performed By: [facility] [address] [place] [address]. [place] [id number] Dr. Donnie Jean, Commodities Broker Items in this order include: Cholesterol, Comprehensive Metabolic Panel, Direct LDL , HDL, Uric Acid , CBC with differential, HgbA1C, , , Slide Scan if Indicated, Manual Differential if Indicated Testing Performed By: [facility] [address] [place] [address]. [place] [address] Dr. Donnie Jean, Commodities Broker Items in this order include: Cholesterol, Comprehensive Metabolic Panel, Direct LDL , HDL, Uric Acid , CBC with differential, HgbA1C, , , Slide Scan if Indicated, Manual Differential if Indicated Testing Performed By: [facility] [address] [place] [address]. [place] [id number] Dr. Donnie Jean, Commodities Broker Performed By: #### C 120, C141, C116, C406, C4521, C118, C47, C4523, C215 #### [facility] [address] [place] [address] [address] [place] [address] MCHC (RBC) [Mass/Vol] 31.8 g/dL Low 32.0-36.0 [facility] Comment on above: Order Comment: Items in this order include: Cholesterol, Comprehensive Metabolic Panel, Direct LDL , HDL, Uric Acid , CBC with differential, HgbA1C, , , Slide Scan if Indicated, Manual Differential if Indicated Testing Performed By: [facility] [address] [place] [address]. [place] [id number] Dr. Donnie Jean, Commodities Broker Items in this order include: Cholesterol, Comprehensive Metabolic Panel, Direct LDL , HDL, Uric Acid , CBC with differential, HgbA1C, , , Slide Scan if Indicated, Manual Differential if Indicated Testing Performed By: [facility] [address] [place] [address] Dr. Donnie Jean, Commodities Broker Items in this order include: Cholesterol, Comprehensive Metabolic Panel, Direct LDL , HDL, Uric Acid , CBC with differential, HgbA1C, , , Slide Scan if Indicated, Manual Differential if Indicated Testing Performed By: [facility] [address] [place] [address] Dr. Donnie Jean, Commodities Broker Performed By: #### C 120, C141, C116, C406, C4521, C118, C47, C4523, C215 #### [facility] [address] [place] [address] [address] [place] [address] MCV (RBC) [Entitic vol] 110.6 fL High 78.0-100.0 [facility] Comment on above: Order Comment: Items in this order include: Cholesterol, Comprehensive Metabolic Panel, Direct LDL , HDL, Uric Acid , CBC with differential, HgbA1C, , , Slide Scan if Indicated, Manual Differential if Indicated Testing Performed By: [facility] [address] [place] [address] Dr. Donnie Jean, Commodities Broker Items in this order include: Cholesterol, Comprehensive Metabolic Panel, Direct LDL , HDL, Uric Acid , CBC with differential, HgbA1C, , , Slide Scan if Indicated, Manual Differential if Indicated Testing Performed By: [facility] [address] [place] [address] Dr. Donnie Jean, Commodities Broker Items in this order include: Cholesterol, Comprehensive Metabolic Panel, Direct LDL , HDL, Uric Acid , CBC with differential, HgbA1C, , , Slide Scan if Indicated, Manual Differential if Indicated Testing Performed By: [facility] [address] [place] [address] Dr. Donnie Jean, Commodities Broker Performed By: #### C 120, C141, C116, C406, C4521, C118, C47, C4523, C215 #### [facility] [address] [place] [address] Platelet mean volume (Bld) [Entitic vol] 10.6 fL Normal 8.9-12.6 [facility] Comment on above: Order Comment: Items in this order include: Cholesterol, Comprehensive Metabolic Panel, Direct LDL , HDL, Uric Acid , CBC with differential, HgbA1C, , , Slide Scan if Indicated, Manual Differential if Indicated Testing Performed By: [facility] [address] [place] [address]. [place] [address] Dr. Donnie Jean, Commodities Broker Items in this order include: Cholesterol, Comprehensive Metabolic Panel, Direct LDL , HDL, Uric Acid , CBC with differential, HgbA1C, , , Slide Scan if Indicated, Manual Differential if Indicated Testing Performed By: [facility] [address] [place] [address]. [place] [id number] Dr. Donnie Jean, Commodities Broker Items in this order include: Cholesterol, Comprehensive Metabolic Panel, Direct LDL , HDL, Uric Acid , CBC with differential, HgbA1C, , , Slide Scan if Indicated, Manual Differential if Indicated Testing Performed By: [facility] [address] [place] [address]. [place] [address] Dr. Donnie Jean, Commodities Broker Performed By: #### C 120, C141, C116, C406, C4521, C118, C47, C4523, C215 #### [facility], [facility] [address] [place] [address] [address] [place] [address] Platelets (Bld) [#/Vol] 302 K CUMM Normal 130-400 [facility] Comment on above: Order Comment: Items in this order include: Cholesterol, Comprehensive Metabolic Panel, Direct LDL , HDL, Uric Acid , CBC with differential, HgbA1C, , , Slide Scan if Indicated, Manual Differential if Indicated Testing Performed By: [facility] [address] [place] [address]. [place] [address] Dr. Donnie Jean, Commodities Broker Items in this order include: Cholesterol, Comprehensive Metabolic Panel, Direct LDL , HDL, Uric Acid , CBC with differential, HgbA1C, , , Slide Scan if Indicated, Manual Differential if Indicated Testing Performed By: [facility] [address] [place] [address] [place] [address] Dr. Donnie Jean, Commodities Broker Items in this order include: Cholesterol, Comprehensive Metabolic Panel, Direct LDL , HDL, Uric Acid , CBC with differential, HgbA1C, , , Slide Scan if Indicated, Manual Differential if Indicated Testing Performed By: [facility] [address] [place] [address] [place] [address] Dr. Donnie Jean, Commodities Broker Performed By: #### C 120, C141, C116, C406, C4521, C118, C47, C4523, C215 #### [facility] [address] [place] [address] RBC (Bld) [#/Vol] 3.67 M CUMM Low 3.80-5.10 [facility] Comment on above: Order Comment: Items in this order include: Cholesterol, Comprehensive Metabolic Panel, Direct LDL , HDL, Uric Acid , CBC with differential, HgbA1C, , , Slide Scan if Indicated, Manual Differential if Indicated Testing Performed By: [facility] [address] [place] [address] [place] [address] Dr. Donnie Jean, Commodities Broker Items in this order include: Cholesterol, Comprehensive Metabolic Panel, Direct LDL , HDL, Uric Acid , CBC with differential, HgbA1C, , , Slide Scan if Indicated, Manual Differential if Indicated Testing Performed By: [facility] [address] [place] [address]. [place] [address] Dr. Donnie Jean, Commodities Broker Items in this order include: Cholesterol, Comprehensive Metabolic Panel, Direct LDL , HDL, Uric Acid , CBC with differential, HgbA1C, , , Slide Scan if Indicated, Manual Differential if Indicated Testing Performed By: [facility] [address] [place] [address]. [place] [address] Dr. Donnie Jean, Commodities Broker Performed By: #### C 120, C141, C116, C406, C4521, C118, C47, C4523, C215 #### [facility] [address] [place] [address] WBC (Bld) [#/Vol] 19.7 K CUMM High 3.8-10.6 [facility] Comment on above: Order Comment: Items in this order include: Cholesterol, Comprehensive Metabolic Panel, Direct LDL , HDL, Uric Acid , CBC with differential, HgbA1C, , , Slide Scan if Indicated, Manual Differential if Indicated Testing Performed By: [facility] [address] [place] [address] Dr. Donnie Jean, Commodities Broker Items in this order include: Cholesterol, Comprehensive Metabolic Panel, Direct LDL , HDL, Uric Acid , CBC with differential, HgbA1C, , , Slide Scan if Indicated, Manual Differential if Indicated Testing Performed By: [facility] [employer] [place] [address] Dr. Donnie Jean, Commodities Broker Items in this order include: Cholesterol, Comprehensive Metabolic Panel, Direct LDL , HDL, Uric Acid , CBC with differential, HgbA1C, , , Slide Scan if Indicated, Manual Differential if Indicated Testing Performed By: [facility] [employer] [place] [address] Dr. Donnie Jean, Commodities Broker Performed By: #### C 120, C141, C116, C406, C4521, C118, C47, C4523, C215 #### [facility] [address] [place] [id number] Cholesterolon 01-18-2020 Cholesterol [Mass/Vol] 112 mg/dL Normal <200 [facility] Comment on above: Order Comment: Items in this order include: Cholesterol, Comprehensive Metabolic Panel, Direct LDL , HDL, Uric Acid , CBC with differential, HgbA1C, , , Slide Scan if Indicated, Manual Differential if Indicated Testing Performed By: [facility] [employer] [place] [id number] Dr. Donnie Jean, Commodities Broker Performed By: #### C 120, C141, C116, C406, C4521, C118, C47, C4523, C215 #### [facility] [address] [place] [address] Comprehensive Metabolic Pane donnie 03-02-2020 Albumin [Mass/Vol] 4.0 g/dL Normal 3.5-5.0 [facility] Comment on above: Performed By: #### C 120, C141, C116, C406, C4521, C118, C47, C4523, C215 #### [facility] [address] [place] [address] Alk Phos 74 U/L Normal 23-159 [facility] Comment on above: Performed By: #### C 120, C141, C116, C406, C4521, C118, C47, C4523, C215 #### [facility] [address] [place] [address] ALT [Catalytic activity/Vol] 18 U/L Normal 0-38 [facility] Comment on above: Performed By: #### C 120, C141, C116, C406, C4521, C118, C47, C4523, C215 #### [facility] [address] [place] [address] AST [Catalytic activity/Vol] 22 U/L Normal 11-43 [facility] Comment on above: Performed By: #### C 120, C141, C116, C406, C4521, C118, C47, C4523, C215 #### [facility] [address] [place] [address] Bilirubin [Mass/Vol] 0.6 mg/dL Normal 0.2-1.3 [facility] Comment on above: Performed By: #### C 120, C141, C116, C406, C4521, C118, C47, C4523, C215 #### [facility] [address] [place] [address] Calcium [Mass/Vol] 9.2 mg/dL Normal 8.5-10.5 [facility] Comment on above: Performed By: #### C 120, C141, C116, C406, C4521, C118, C47, C4523, C215 #### [facility] [address] [place] [address] Chloride [Moles/Vol] 101 mmol/L Normal 98-107 [facility] Comment on above: Performed By: #### C 120, C141, C116, C406, C4521, C118, C47, C4523, C215 #### [facility] [address] [place] [address] CO2 [Moles/Vol] 22.0 mmol/L Normal 21.0-32.0 [facility] Comment on above: Performed By: #### C 120, C141, C116, C406, C4521, C118, C47, C4523, C215 #### [facility] [address] [place] [address] Creatinine [Mass/Vol] 1.2 mg/dL Normal 0.1-1.2 [facility] Comment on above: Performed By: #### C 120, C141, C116, C406, C4521, C118, C47, C4523, C215 #### [facility] [address] [place] [address] GFR/1.73 sq M.predicted MDRD (S/P/Bld) [Vol rate/Area] 43 mL/min per 1.73 Low >60 [facility] Comment on above: Result Comment: The GFR estimate is not adjusted for race. If the patient's race is -Pu[place]ican, the GFR estimate must be multiplied by a factor of 1.21. Performed By: #### C 120, C141, C116, C406, C4521, C118, C47, C4523, C215 #### [facility] [address] [place] [address] Glucose [Mass/Vol] 157 mg/dL High 74-100 [facility] Comment on above: Performed By: #### C 120, C141, C116, C406, C4521, C118, C47, C4523, C215 #### [facility] [address] [place] [address] Potassium [Moles/Vol] 4.3 mmol/L Normal 3.5-5.3 [facility] Comment on above: Performed By: #### C 120, C141, C116, C406, C4521, C118, C47, C4523, C215 #### [facility] [address] [place] [address] Protein [Mass/Vol] 6.7 g/dL Normal 6.3-8.4 [facility] Comment on above: Performed By: #### C 120, C141, C116, C406, C4521, C118, C47, C4523, C215 #### [facility] [address] [place] [address] Sodium [Moles/Vol] 136 mmol/L Normal 135-145 [facility] Comment on above: Performed By: #### C 120, C141, C116, C406, C4521, C118, C47, C4523, C215 #### [facility] [employer] [place] [address] Urea nitrogen [Mass/Vol] 25 mg/dL High 6-22 [facility] Comment on above: Performed By: #### C 120, C141, C116, C406, C4521, C118, C47, C4523, C215 #### [facility] [address] [place] [address] Direct LDLon 01-18-2020 Cholesterol in LDL [Mass/Vol] 49 mg/dL Normal <130 [facility] Comment on above: Order Comment: Items in this order include: Cholesterol, Comprehensive Metabolic Panel, Direct LDL , HDL, Uric Acid , CBC with differential, HgbA1C, , , Slide Scan if Indicated, Manual Differential if Indicated Testing Performed By: [facility] [address] [place] [address]. [place] [id number] Dr. Donnie Jean, Commodities Broker Result Comment: LDL goal dependent upon individual risk Performed By: #### C 120, C141, C116, C406, C4521, C118, C47, C4523, C215 #### [facility] [address] [place] [address] HDLon 01-18-2020 Cholesterol in HDL [Mass/Vol] 30 mg/dL Low >50 [facility] Comment on above: Performed By: #### C 120, C141, C116, C406, C4521, C118, C47, C4523, C215 #### [facility] [employer] [place] [id number] 01-18-2020 HbA1c (Bld) [Mass fraction] 6.7 % High <5.7 [facility] Comment on above: Order Comment: Items in this order include: Cholesterol, Comprehensive Metabolic Panel, Direct LDL , HDL, Uric Acid , CBC with differential, HgbA1C, , , Slide Scan if Indicated, Manual Differential if IndicatedTesting Performed By: [facility] [address] [place] [address]. [place] [id number] Dr. Donnie Jean, Commodities Broker Result Comment: Refe rence Interval: Normal: below 5.7%. Prediabetes: 5.7% to 6.4%. Diabetes: 6.5% or above. Performed By: #### C 709 #### [facility] [employer] [place] [address] Manual Differential if Indic atedon 01-18-2020 Anisocytosis Ql (Bld) SLIGHT Normal [facility] Comment on above: Order Comment: Jorge L galvan comment: User comments: Slide comments: Performed By: #### C 120, C141, C116, C406, C4521, C118, C47, C4523, C215 #### [facility] [employer] [place] [address] Performed By: #### C 709 #### [facility] [address] [place] [address] Basophils 2 % Normal [facility] Comment on above: Order Comment: Recei mandy comment: User comments: Slide comments: Performed By: #### C 120, C141, C116, C406, C4521, C118, C47, C4523, C215 #### [facility] [address] [place] [address] Villas Cells SLIGHT Normal [facility] Comment on above: Order Comment: Recei mandy comment: User comments: Slide comments: Performed By: #### C 120, C141, C116, C406, C4521, C118, C47, C4523, C215 #### [facility] [address] [place] [address] Performed By: #### C 709 #### [facility] [address] [place] [address] Hypochromasia SLIGHT Normal SLIGHT [facility] Comment on above: Order Comment: Recei mandy comment: User comments: Slide comments: Performed By: #### C 120, C141, C116, C406, C4521, C118, C47, C4523, C215 #### [facility] [address] [place] [address] Performed By: #### C 709 #### [facility] [address] [place] [address] Lymphocytes 4 % Low 20-51 [facility] Comment on above: Order Comment: Recei mandy comment: User comments: Slide comments: Performed By: #### C 120, C141, C116, C406, C4521, C118, C47, C4523, C215 #### [facility] [address] [place] [address] Macrocytes Ql (Bld) SLIGHT Normal [facility] Comment on above: Order Comment: Recei mandy comment: User comments: Slide comments: Performed By: #### C 120, C141, C116, C406, C4521, C118, C47, C4523, C215 #### [facility] [address] [place] [address] Performed By: #### C 709 #### [facility] [address] [place] [address] Monocytes 3 % Normal 2-9 [facility] Comment on above: Order Comment: Recei mandy comment: User comments: Slide comments: Performed By: #### C 120, C141, C116, C406, C4521, C118, C47, C4523, C215 #### [facility] [address] [place] [address] Neutrophils 91 % High 42-75 [facility] Comment on above: Order Comment: Recei mandy comment: User comments: Slide comments: Performed By: #### C 120, C141, C116, C406, C4521, C118, C47, C4523, C215 #### [facility] [address] [place] [address] Ovalocytes SLIGHT Normal [facility] Comment on above: Order Comment: Recei mandy comment: User comments: Slide comments: Performed By: #### C 120, C141, C116, C406, C4521, C118, C47, C4523, C215 #### [facility] [address] [place] [address] Performed By: #### C 709 #### [facility] [address] [place] [address] Poikilocytosis SLIGHT Normal [facility] Comment on above: Order Comment: Recei mandy comment: User comments: Slide comments: Performed By: #### C 120, C141, C116, C406, C4521, C118, C47, C4523, C215 #### [facility] [address] [place] [address] Performed By: #### C 709 #### [facility] [address] [place] [address] Polychromasia SLIGHT Normal [facility] Comment on above: Order Comment: Jorge L galvan comment: User comments: Slide comments: Performed By: #### C 120, C141, C116, C406, C4521, C118, C47, C4523, C215 #### [facility] [address] [place] [address] Performed By: #### C 709 #### [facility] [address] [place] [address] Uric Acidon 01-18-2020 Urate [Mass/Vol] 5.2 mg/dL Normal 2.5-6.2 [facility] Comment on above: Performed By: #### C 120, C141, C116, C406, C4521, C118, C47, C4523, C215 #### [facility] [address] [place] [address] Vital Signs Date Time Vital Sign Value Performing Clinician Faci lity 01-06-2024 14:30-0500 Body height 162.6 cm Leighton Horvath MD Work Phone: [facility] 01-06-2024 14:30-0500 Body mass index (BMI) [Ratio] 29.02 kg/m2 Leighton Horvath MD Work Phone: [facility] 01-06-2024 14:30-0500 Body temperature 97.7 [degF] Leighton Horvath MD Work Phone: [facility] 01-06-2024 14:30-0500 Body weight 76.7 kg Leighton Horvath MD Work Phone: [facility] Encounters Encounter Date Encounter Type Care Provider Facility Start: 01-06-2024 End: 01-07-2024 ambulatory [facility] Start: 01-06-2024 End: 01-06-2024 Office outpatient visit 15 minutes Leighton Horvath MD Work Phone: [facility] Comment on above: Closed displaced fra cture of right acetabulum with routine healing, unspecified portion of acetabulum, subsequent encounter (Primary Dx) Start: 12-09-2023 End: 12-09-2023 ambulatory ANTONIO Stoddard APLING Not Available Start: 10-21-2023 End: 10-21-2023 ambulatory ANTONIO Stoddard APLING Not Available Start: 09-30-2023 End: 10-01-2023 ambulatory ANTONIO Stoddard APLING Not Available Start: 09-20-2023 End: 09-20-2023 ambulatory [facility] Start: 03-08-2023 End: 03-08-2023 ambulatory BECK RENEE Facility:[facility] Start: 03-01-2023 End: 03-01-2023 ambulatory BECK RENEE Facility:[facility] Start: 02-19-2023 ambulatory BECK RENEE Facility: [facility] Start: 02-06-2023 End: 02-06-[address] SON HADLEY Facility:[facility] Start: 01-18-2023 End: 01-19-2023 ambulatory BECK RENEE Facility:[facility] Start: 01-18-2023 End: 01-18-2023 ambulatory BECK RENEE Facility:[facility] Start: 12-25-2022 End: 12-25-2022 [facility] Start: 06-26-2022 End: 06-27-2022 ambulatory YOU BARILLAS Facility:[facility] Start: 05-08-2022 End: 05-09-[address] BENNIE ALBRIGHT . Facility:[facility] Start: 04-03-2022 End: 04-18-2022 ambulatory LOU RANDHAWA Facility:[facility] Start: 04-01-2022 End: 04-16-2022 Evaluation and management of inpatient Genaro Torrezd Facility:[facility] Start: 03-22-2022 End: 04-01-2022 Evaluation and management of inpatient DR FARSHAD DONALDSON . Facility:[facility] Start: 11-02-2021 ambulatory CHICARO MARIANOCHELI Facility :[facility] Start: 08-17-2021 [facility]ulatory [facility] Facility:[facility] Start: 07-21-2020 End: 07-21-2020 Patient encounter procedure ARA COFFMAN [facility] Procedures Date Procedure Procedure Detail Performing Clinician Start: 01-06-2024 Follow-up visit Follow-up LEIGHTON HORVATH Start: 04-03-2022 Antibody screen LOU Stephen CRISTY Comment on above: Performed By: #### [id number] #### [address] Plan of Treatment Date Care Activity Detail Author Start: 01-06-2025 Adult BMI Screening Adult BMI Screening [facility] Start: 01-06-2025 Tobacco Screening Tobacco Screening [facility] Start: 07-30-2024 End: 07-30-2024 Patient encounter procedure 07/30/2024 1:00 PM EDT Office Visit Amairani Lowry [facility] - Medical Oncology [address] [place] [phone] Laurel Mueller MD [address] [place] [address] [address] [place] [address] Amairani Lowry [facility] Start: 07-19-2023 COVID-19 Vaccine ( season) COVID-19 Vaccine ( season) [facility] Start: 07-19-2023 Influenza vaccination Influenza Vaccine [facility] Start: 07-09-2017 Administration of varicella zoster vaccine Z[facility] (Shingles[facility] Start: 2004 Fall [facility]ening [facility] Start: 1958 DTaP,Tdap and Td Vaccines (1 - Tdap) DTaP,Tdap and Td Vaccines (1 - Tdap) [facility] Start: 1957 Adult BMI Follow Up Plan Adult [facility] Start: 1951 Depression Screening Depression Screening [facility] Start: 1940 Medicare Annual Wellness Visit Medicare Annual Wellness Visit [facility] Immunizations Immunization Date Immunization Notes Care Provider Junior tompkins 03-08-2022 COVID-19, mRNA, LNP- S, PF, 100mcg/0.5mL Dose Leighton Horvath MD Work Phone: [facility] 08-10-2021 pneumococcal conjuga te vaccine, 13 faraz Horvath MD Work Phone: [facility] 08-22-2020 Influenza, High-dose , Quadrivalent Leighton Horvath MD Work Phone: [facility] 08-22-2020 pneumococcal conjuga te vaccine, 13 faraz Horvath MD Work Phone: [facility] 08-22-2020 influenza virus vacc ine, unspecified formulation Leighton Horvath MD Work Phone: [facility] 05-10-2020 pneumococcal polysaccharide vaccine, 23 emmieent Leighton Horvath MD Work Phone: [facility] 09-21-2019 influenza, high dose seasonal, preservative-free Leighton Horvath MD Work Phone: [facility] 10-21-2018 influenza, high dose seasonal, preservative-free Leighton Horvath MD Work Phone: [facility] 05-14-2017 zoster vaccine, live Leighton Horvath MD Work Phone: [facility] 05-14-2017 zoster vaccine, unspecified formulation Leighton Horvath MD Work Phone: [facility] 09-10-2016 influenza, high dose seasonal, preservative-free Leighton Horvath MD Work Phone: [facility] 09-10-2016 pneumococcal conjuga te vaccine, 13 faraz Horvath MD Work Phone: [facility] 09-01-2015 influenza, high dose seasonal, preservative-free Leighton Horvath MD Work Phone: [employer] 08-26-2014 influenza, seasonal, injectable Leighton Horvath MD Work Phone: [employer] 08-26-2014 pneumococcal polysaccharide vaccine, 23 valent Leighton Horvath MD Work Phone: [employer] 08-26-2013 influenza, seasonal, injectable [facility]vath MD [facility] Payers Date Payer Category Payer Medicare [employer] MEDICARE UHC MEDICARE ADVANTAGE PPO [id number] 2022-Present [phone] [address] [address] [place] [address] [id number] [facility] EDICAID [id number] 2021-Present [phone] [address] [place] [address] [id number] 2019 Medicare [id number] Medicaid [id number] 1959 Medicare [id number] 1959 Private Health Insurance [id number] 1940 Unknown [id number] 2.16.840.1.564401.3.579. 2.900 1939 Unknown [id number] 2.16.840.1.312590.3.579. 2.594 1939 Unknown [id number] 2.16.840.1.670074.3.579. 2.594 1939 Unknown [id number] 2.16.840.1.242577.3.579. 2.594 1939 Unknown [id number] 2.16.840.1.550493.3.579. 2.647 1939 Unknown [id number] 2.16.840.1.636525.3.579. 2.647 1939 Unknown [id number] 2.16.840.1.967112.3.579. 2.647 1939 Unknown [id number] 2.16.840.1.295585.3.579. 2.593 1939 Unknown [id number] 2.16.840.1.503261.3.579. 2.593 1939 Unknown [id number] 2.16.840.1.554192.3.579. 2.593 1939 Unknown [id number] 2.16.840.1.284425.3.579. 2.593 1939 Unknown [id number] 2.16.840.1.966316.3.579. 2.593 1939 Unknown [id number] 2.16.840.1.409201.3.579. 2.593 1939 Unknown [id number] 2.16.840.1.109202.3.579. 2.593 1939 Unknown [id number] 2.16.840.1.114194.3.579. 2.593 1939 Unknown [id number] 2.16.840.1.046637.3.579. 2.1259 1939 Unknown [id number] 2.16.840.1.072673.3.579. 2.1259 1939 Unknown [id number] 2.16.840.1.686382.3.579. 2.1259 1939 Unknown [id number] 2.16.840.1.021601.3.579. 2.1259 1939 Unknown [id number] 2.16.840.1.739334.3.579. 2.1286 1939 Unknown [id number] 2.16.840.1.488215.3.579. 2.1286 Social History Date Type Detail Facility Start: 02-07-2023 Tobacco smoking stat NHIS Ex-smoker [facility] History of tobacco use Current smoker Pro [facility] History of tobacco use Cigarette Smoker P [facility] Start: 02-07-2023 Tobacco use and exposure Smokeless tobacco non-user [facility] Start: 01-07-2024 Alcohol intake Ex-drinker (finding) [facility] Start: 01-06-2024 End: 01-07-2024 History of Social function [facility] Start: 01-06-2024 End: 01-07-2024 Tobacco use panel [facility] Are you worried or concerned that in the next two months you may not have stable housing that you own, rent or stay in as a part of a household? No [facility] Start: 1940 Sex Assigned At Female P [facility] Medical Equipment Procedure Code Equipment Code Equipment Origin al Text Equipment Identifier Dates Plate Bn [id number] m / Tblr 6 Hl Colr Ss .5mm 12mm Ns - [id number] Start: 02-08-2023 Screw Bn 26mm 4m m 6mm Sm Hex Sckt Canc Ss 2.5mm Ft Ns Sm - [id number] Start: 02-08-2023 Goals Date Patient Goal [...] Leighton Horvath MD documented in this encounter [employer] [facility] Progress note 09-20-2023 Note Date & Type Note Facility 09-20-2023 Note [place] [facility] Subjective María Elena Tafoya [...] March 2022 was admitted to the [facility] and then [facility] with acute gallstone pancreatitis, acute blood [...] thickness/hypertrophy. Systolic function (more content not included)... [facility] Progress note 12-25-2022 Note Date & Type Note Facility 12-25-2022 Note Cardiovascular Medic [facility] SUBJECTIVE Chief Complaint Patient presents with Atrial Fibrillation María Elena Tafoya is a 82 y.o. female here for follow-up. HPI She is an 82-year-old woman who was admitted in March 2022 to [facility] and then [facility] with acute gallstone pancreatitis, acute blood [...] POC 06/26/2022 11 (more content not included)... [facility] Progress note 12-25-2022 Note Date & Type Note Facility 12-25-2022 Note Patient here for fol low up [place] on event monitor per Dr. Leos. Patient denies chest pain and SOB. Feels good. Review of Systems All other systems reviewed and are negative. [facility] Discharge summary note 04-16-2022 Note Date & Type Note Facility 04-16-2022 Note MR#: [id number] I [facility] Pt. Name: María Elena Tafoya Admitted: 04/01/2022 [...] Gordillo MD Date Trans: 04/16/2022 09:55 A/erik [id number] cc: Bennie Albright M.D. [address] [id number] [facility] Discharge summary note 04-13-2022 Note Date & Type Note Facility 04-13-2022 Note MR#: [id number] I [facility] Pt. Name: María Elena Tafoya Admitted: 04/01/2022 [...] as above, who was transferred from [facility] secondary to gallstone induced acute pancreatitis. [...] sign and the patient was admitted to [facility] for further treatment. She was aggressively [...] to repeat a voiding trial at the senior care in 1-3 days and follow up with provider at that facility, however, her discharge is currently pending precert, so if she does remain at this facility, we may also just discontinue (more content not included)... 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 Additional Source Comments INFORMATION SOURCE (unrecogn ized section and content) DATE CREATED AUTHOR 02/04/2020 [facility] DATE CREATED AUTHOR AUTHOR'S ORGANIZ ATION 08/23/2020 [facility] DATE CREATED AUTHOR AUTHOR'S ORGANIZ ATION 09/28/2020 [facility] DATE CREATED AUTHOR AUTHOR'S ORGANIZ ATION 02/12/2021 [facility] DATE CREATED AUTHOR AUTHOR'S ORGANIZ ATION 02/07/2022 [facility] DATE CREATED AUTHOR AUTHOR'S ORGANIZ ATION 07/13/2022 [facility] DATE CREATED AUTHOR AUTHOR'S ORGANIZ ATION 03/15/2023 [facility] DATE CREATED AUTHOR AUTHOR'S ORGANIZ ATION 09/21/2023 [facility] DATE CREATED AUTHOR AUTHOR'S ORGANIZ ATION 12/09/2023 [facility] DATE CREATED AUTHOR AUTHOR'S ORGANIZ ATION 01/08/2024 [facility] Reason for Visit (unrecogniz ed section [...] BE BASED ON THE PRIMARY CLINICAL RECORDS. [facility] [employer] [facility]. provides no warranty or guarantee of the accuracy or completeness of information in this document.
--- NOTE | 2024-02-29 09:43 | ECG_ITS ---
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
--- NOTE | 2024-02-29 09:43 | XR_ITS ---
The [address] [address] Patient Name: MASSIEL HUNT MRN: [id number] date: 1940 Sex: F Assigned Patient Location: ED.MAIN Current Patient Location: ER Accession/Order Number: [id number] Exam Date: 02/29/2024 10:14 Report Date: 02/29/2024 10:40 At the request of: FRIDA ARIZMENDI Procedure: XR chest 1V EXAM: XR chest 1V INDICATION: ams. COMPARISON: Chest radiograph 02/06/2023. TECHNIQUE: Single frontal view of the chest FINDINGS: Normal cardiomediastinal contours. Mild airspace opacities versus atelectasis in the left lower lung. No pleural effusion or pneumothorax. No acute osseous abnormality. XR/XR chest 1V IMPRESSION: Mild left lower lung airspace disease versus atelectasis. Electronically authenticated by: CHA JADE Date: 02/29/2024 10:40
--- NOTE | 2024-02-29 09:44 | ED_ITS ---
HPI - Altered Mental Status General Chief Complaint: Altered Mental Status Stated Complaint: Altered Mental Status Time Seen by Provider: 02/29/24 09:43 Source: caregiver Mode of arrival: ambulance Limitations: no limitations History of Present Illness HPI narrative: The patient have history of CLL presenting to us from a correction facility after she had a COVID-vaccine yesterday, the patient has been noted to be mostly weak and tired since yesterday, she also has some cough denying any abdominal pain or chest pain in the ER, it was noted that her pulse ox is 90% at room air. The patient does look if tired but she is denying any specific pain or complaints Related Data Allergies Allergy/AdvReac Type Severity Reaction Status Date / Time bacitracin Allergy Intermediate Verified 02/29/24 09:43 dexamethasone [From TobraDex] Allergy Intermediate Verified 02/29/24 09:43 erythromycin base Allergy Intermediate Verified 02/29/24 09:43 ibuprofen Allergy Intermediate Verified 02/29/24 09:43 Iodinated Contrast Media Allergy Intermediate Verified 02/29/24 09:43 Latex, Natural Rubber Allergy Intermediate Verified 02/29/24 09:43 neomycin Allergy Intermediate Verified 02/29/24 09:43 shellfish derived Allergy Intermediate Verified 02/29/24 09:43 Sulfa (Sulfonamide Allergy Intermediate Verified 02/29/24 09:43 Antibiotics) tobramycin [From TobraDex] Allergy Intermediate Verified 02/29/24 09:43 Review of Systems ROS Status of ROS 10 or more systems reviewed and unremark able except as noted in history and below Exam Narrative Exam Narrative: Nurses notes and vital signs reviewed and patient is not hypoxic. General: Well-appearing and in no apparent distress. Skin: Warm, dry, no pallor noted. No rash. Head: Normocephalic, atraumatic. Neck: Supple, non-tender. Eye: Pupils are equal, round and EOMI. No scleral icterus. Ears, Nose, Mouth, and Throat: TM are clear, no nasal mucosal hypertrophy. Oral mucosa is moist, no posterior oropharynx erythema, uvula is mid-line Cardiovascular: Regular Rate and Rhythm without murmur, gallop or rub. Respiratory: Decreased air entry in the bases. Back: No midline thoracic or lumbar vertebral tenderness. No CVA tenderness Musculoskeletal: normal ROM, no calf or popliteal tenderness, no lower extremity edema/swelling GI: Abdomen is soft, non-distended. Normal bowel sounds. No masses appreciated. No tenderness to palpation. No rebound, guarding, or rigidity noted. Neurological: A&O x4. No cranial nerve dysfunction observed. No truncal ataxia. Moves all extremities. Sensation intact. Psychiatric: Cooperative and interactive. Normal mood and affect. Constitutional Vital Signs, click to edit/add: Last Vital Signs Temp 98.0 F 02/29/24 09:38 Pulse 76 02/29/24 11:01 Resp 22 H 02/29/24 11:01 BP 144/76 H 02/29/24 10:00 Pulse Ox 95 02/29/24 11:01 O2 Del Method Nasal Cannula 02/29/24 11:01 O2 Flow Rate 2 02/29/24 11:01 Course Vital Signs Vital signs: Vital Signs Temperature 98.0 F 02/29/24 09:38 Pulse Rate 87 02/29/24 09:38 Respiratory Rate 18 02/29/24 09:38 Blood Pressure 144/86 H 02/29/24 09:38 Pulse Oximetry 90 L 02/29/24 09:38 Oxygen Delivery Method Room Air 02/29/24 09:38 Temperature 98.0 F 02/29/24 09:38 Pulse Rate 76 02/29/24 11:01 Respiratory Rate 22 H 02/29/24 11:01 Blood Pressure 144/76 H 02/29/24 10:00 Pulse Oximetry 95 02/29/24 11:01 Oxygen Delivery Method Nasal Cannula 02/29/24 11:01 Oxygen Delivery Flow Rate 2 02/29/24 11:01 MDM - Altered Mental Status MDM Narrative Medical decision making narrative: The patient EKG upon presentation showing sinus rhythm with a heart rate of [address] elevation or depression. The patient have a baseline leukocytosis it does not seem that she have a active treatment for CLL at the moment her baseline is 27 and right now she is not far away from baseline Chest x-ray shows possible infiltrate in the left lung The patient is requiring oxygen to maintain pulse ox of 93% with 2 L nasal cannula and she is 90% in room air The patient right now chemistry showing chronic kidney disease there is some acidosis which is mostly metabolic it could be secondary to the hyperglycemia that she had yesterday but with the patient lactic acid being elevated of 2.5 the patient will be covered for possible sepsis. IV fluids started according to the sepsis protocol the patient was started on doxycycline and ceftriaxone The patient also had a urinalysis that shows possible UTI will obtain urine culture The patient case was discussed with Dr. Arvizu and he agreed with above- mentioned plan The paperwork provided from the correction facility showed that the patient is a full code Sister at the bedside had her questions answered and she is aware of the patient current dx Lab Data Labs: Lab Results 02/29/24 02/29/24 02/29/24 Range/Units 09:53 09:57 09:59 WBC 28.0 H (4.0-11.0) 10^3/uL RBC 6.00 H (4.20-5.40) 10^6/uL Hgb 15.5 (12.0-16.0) g/dL Hct 50.7 H (36.0-48.0) % MCV 84.5 (81.0-99.0) fL MCH 25.8 L (26.7-34.0) pg MCHC 30.6 (29.9-35.2) g/dL RDW 18.8 H (11.0-15.0) % Plt Count 320 (150-450) 10^3/uL MPV 9.8 (9.5-13.5) fL Seg Neuts % (Manual) 83.0 Band Neutrophils % 10.0 H (0-5) % Lymphocytes % (Manual) 2.0 L (20.5-60.0) % Monocytes % (Manual) 4.0 (1.7-12.0) % Eosinophils % (Manual) 0.0 L (0.9-7.0) % Basophils % (Manual) 0.0 L (0.2-2.0) % Metamyelocytes % 1.0 Neutrophils # (Manual) 23.24 H (1.4-6.5) 10^3/uL Band Neutrophils # 2.8 H (0.0-0.3) 10^3/uL Lymphocytes # (Manual) 0.56 L (1.20-3.80) 10^3/uL Monocytes # (Manual) 1.12 H (0.30-0.80) 10^3/uL Eosinophils # (Manual) 0.00 (0.00-0.70) 10^3/uL Basophils # (Manual) 0.00 (0.00-0.10) 10^3/uL Metamyelocytes # 0.28 Sodium 137 (136-145) mmol/L Potassium 4.6 (3.5-5.1) mmol/L Chloride 102 (98-107) mmol/L Carbon Dioxide 20.1 L (21.0-32.0) mmol/L Anion Gap 19.5 BUN 34.0 H (7.0-18.0) mg/dL Creatinine 2.00 H (0.55-1.02) mg/dL Est GFR ( Amer) 29 L (>=60) Est GFR (Non-Af Amer) 24 L (>=60) BUN/Creatinine Ratio 17.0 Glucose 163 H (74-106) mg/dL Lactate 2.6 H* (0.4-2.0) mmol/L Calcium 9.2 (8.5-10.1) mg/dL Total Bilirubin 0.6 (0.2-1.0) mg/dL AST 38 H (15-37) U/L ALT 68 H (14-59) U/L Alkaline Phosphatase 92 (46-116) U/L Troponin I High Sens 29.7 (4.0-51.3) pg/mL Total Protein 7.6 (6.4-8.2) g/dL Albumin 3.0 L (3.4-5.0) g/dL Globulin 4.6 g/dL Albumin/Globulin Ratio 0.7 Urine Color Lt. yellow (YELLOW) Urine Clarity Clear (CLEAR) Urine pH 6.0 (5.0-9.0) Ur Specific [place] >=1.030 A (1.005-1.025) Urine Protein >=300 A (NEG/TRACE) mg/dL Urine Glucose (UA) Negative (NEGATIVE) mg/dL Urine Ketones Negative (NEGATIVE) mg/dL Urine Occult Blood Moderate A (NEGATIVE) Urine Nitrite Negative (NEGATIVE) Urine Bilirubin Negative (NEGATIVE) Urine Urobilinogen 0.2 (0.2-1.0) EU/dL Ur Leukocyte Esterase Large A (NEGATIVE) Urine RBC 10-20 A (0-2) #/HPF Urine WBC 75-100 A (NONE SEEN) #/HPF Ur Squamous Epith Cells None seen (NONE/RARE) #/LPF Urine Crystals None seen (None Seen) #/HPF Urine Bacteria Moderate A (NONE SEEN) #/HPF Urine Casts None seen (NONE SEEN) #/LPF Urine Mucus None seen (NONE SEEN) Ur Culture Indicated? Yes Adenovirus (PCR) Not detected (NOT DETECTE) C. pneumoniae DNA (PCR) Not detected (NOT DETECTE) Coronavirus Type OC43 Not detected (NOT DETECTE) Coronavirus Type HKU1 Not detected (NOT DETECTE) Coronavirus Type 229E Not detected (NOT DETECTE) Coronavirus Type NL63 Not detected (NOT DETECTE) Human Metapneumovir PCR Not detected (NOT DETECTE) M. pneumoniae (PCR) Not detected (NOT DETECTE) Parainfluenza PCR Not detected (NOT DETECTE) Parainfluenza 2 (PCR) Not detected (NOT DETECTE) Parainfluenza 3 (PCR) Not detected (NOT DETECTE) Parainfluenza 4 (PCR) Not detected (NOT DETECTE) RSV (RT-PCR) Not detected (NOT DETECTE) Entero/Rhino (PCR) Detected A (NOT DETECTE) SARS-CoV-2 (PCR) Not detected (NOT DETECTE) Bordetella pertussis (PCR) Not detected (NOT DETECTE) B parapertussis DNA PCR Not detected (NOT DETECTE) Influenza Type A (PCR) Not detected (NOT DETECTE) Influenza Type B (PCR) Not detected (NOT DETECTE) Discharge Plan Discharge Chief Complaint: Altered Mental Status Clinical Impression: Altered mental status Qualifiers: Altered mental status type: somnolence Qualified Code(s): R40.0 - Somnolence Sepsis Qualifiers: Sepsis type: sepsis due to unspecified organism Sepsis acute organ dysfunction status: with acute organ dysfunction Severe sepsis acute organ dysfunction type: unspecified Severe sepsis shock status: without septic shock Qualified Code(s): A41.9 - Sepsis, unspecified organism Pneumonia Qualifiers: Pneumonia type: due to unspecified organism Laterality: left Lung location: unspecified part of lung Qualified Code(s): J18.9 - Pneumonia, unspecified organism Patient Disposition: Admitted As Inpatient Time of Disposition Decision: 11:12
[2024-02-29 10:05] LABS: Adenovirus NOT DETECTED (NOT DETECTE); Bordetella parapertussis NOT DETECTED (NOT DETECTE); Coronavirus 229E NOT DETECTED (NOT DETECTE); Coronavirus HKU1 NOT DETECTED (NOT DETECTE); Coronavirus NL63 NOT DETECTED (NOT DETECTE); Coronavirus OC43 NOT DETECTED (NOT DETECTE); Human Metapneumovirus NOT DETECTED (NOT DETECTE); Influenza A NOT DETECTED (NOT DETECTE); Influenza B NOT DETECTED (NOT DETECTE); Mycoplasma pneumoniae NOT DETECTED (NOT DETECTE); Parainfluenza Virus 1 NOT DETECTED (NOT DETECTE); Parainfluenza Virus 2 NOT DETECTED (NOT DETECTE); Parainfluenza Virus 3 NOT DETECTED (NOT DETECTE); Parainfluenza Virus 4 NOT DETECTED (NOT DETECTE); Respiratory Syncytial Virus NOT DETECTED (NOT DETECTE); SARS-CoV-2 NOT DETECTED (NOT DETECTE)
[2024-02-29 10:12] LABS: Hematocrit 50.7 % (36.0-48.0); Hemoglobin 15.5 g/dL (12.0-16.0); Mean Corpuscular HGB Conc 30.6 g/dL (29.9-35.2); Mean Corpuscular Hemoglobin 25.8 pg (26.7-34.0); Mean Corpuscular Volume 84.5 fL (81.0-99.0); Mean Platelet Volume 9.8 fL (9.5-13.5); Platelet Count 320 10^3/uL (150-450); Red Cell Distribution Width 18.8 % (11.0-15.0)
[2024-02-29 10:13] LABS: Bilirubin Urine NEGATIVE (NEGATIVE); Blood Urine MODERATE (NEGATIVE); Clarity Urine CLEAR (CLEAR); Color Urine LT. YELLOW (YELLOW); Glucose Urine UA NEGATIVE (NEGATIVE); Ketones Urine NEGATIVE (NEGATIVE); Leukocyte Esterase Urine LARGE (NEGATIVE); Nitrite Urine NEGATIVE (NEGATIVE); Protein Urine >=300 mg/dL (NEG/TRACE); Specific Gravity Urine >=1.030 (1.005-1.025); Urobilinogen Urine 0.2 EU/dL (0.2-1.0)
[2024-02-29 10:14] LABS: Urine Microscopic Indicated YES
[2024-02-29 10:22] LABS: Anion Gap 19.5
[2024-02-29 10:25] LABS: Alanine Aminotransferase 68 U/L (14-59); Albumin Globulin Ratio 0.7; Alkaline Phosphatase 92 U/L (46-116); Aspartate Amino Transferase 38 U/L (15-37); Bilirubin Total 0.6 mg/dL (0.2-1.0); Calcium 9.2 mg/dL (8.5-10.1); Carbon Dioxide 20.1 mmol/L (21.0-32.0); Chloride 102 mmol/L (98-107); Estimated GFR (African America 29 (>=60); Estimated GFR (Non-African Ame 24 (>=60); Globulin 4.6 g/dL; Glucose 163 mg/dL (74-106); Potassium 4.6 mmol/L (3.5-5.1); Sodium 137 mmol/L (136-145); Total Protein 7.6 g/dL (6.4-8.2); Troponin I High Sensitivity 29.7 pg/mL (4.0-51.3)
[2024-02-29 10:35] LABS: Lactate/Lactic Acid 2.6 mmol/L (0.4-2.0)
[2024-02-29 10:38] LABS: WBC Urine 75-100 #/HPF (NONE SEEN)
[2024-02-29 10:39] LABS: Bacteria Urine MODERATE #/HPF (NONE SEEN); Cast Seen? NONE SEEN #/LPF (NONE SEEN); Crystals Seen? None Seen #/HPF (None Seen); Mucus Urine NONE SEEN (NONE SEEN); Squamous Epithelial Cell Urine NONE SEEN #/LPF (NONE/RARE); Urine Culture Indicated YES
[2024-02-29 10:52] LABS: Band Neutrophils Absolute 2.8 10^3/uL (0.0-0.3); Lymphocytes Absolute Manual 0.56 10^3/uL (1.20-3.80); Metamyelocytes Absolute Manual 0.28; Monocytes Absolute Manual 1.12 10^3/uL (0.30-0.80); Segmented Neut Absolute Manual 23.24 10^3/uL (1.4-6.5)
[2024-02-29] MEDS: 0.9 % SODIUM CHLORIDE 1,000 ML 999 ML IV (10:57)
[2024-02-29] MEDS: IPRATROPIUM/ALBUTEROL SULFATE 3 ML AMPUL.NEB IH ×3 (11:01→20:25)
[2024-02-29] MEDS: CEFTRIAXONE 1,000 MG in 0.9 % SODIUM CHLORIDE 50 ML 100 MG IV (11:08)
[2024-02-29 11:09] LABS: Human Rhinovirus/Enterovirus DETECTED (NOT DETECTE)
[2024-02-29 11:24] LABS: PROCALCITONIN 0.46 ng/mL (0.00-0.50)
[2024-02-29] MEDS: DOXYCYCLINE HYCLATE 100 MG in 0.9 % SODIUM CHLORIDE 100 ML IV (11:39)
--- OUTSIDE RECORDS SUMMARY | 2024-02-29 12:04 | XMS_ITS | CCD ---
Author Organization [facility] Care Team Providers Care Rehabilitation Worker Name Role Phone ARA ROBB Attending Unavailable PETRA ARAIZA Attending Unavailable SELF, SELF Referring Unavailable [facility] Referring Unavailable PETRA ARAIZA Attending [...] (2 sources) Ciprofloxacin Drug Allergy 03-23-2022 [facility] [place] Repository (2 sources) Dexamethasone; Translations: [DEXAMETHASONE] Drug Allergy 06-27-2023 [facility] (2 sources) Erythromycin; Translations: [ERYTHROMYCIN BASE] Drug Allergy 06-27-2023 [facility] (2 sources) Neomycin; Translations: [NEOMYCIN SULFATE] Drug Allergy 06-27-2023 [facility] (2 sources) Polymyxin B; Translations: [POLYMYXIN B] Drug Allergy 06-27-2023 [facility] (2 sources) Tobramycin; Translations: [TOBRAMYCIN] Drug Allergy 06-27-2023 [facility] Medications Current Medications Medication Drug Class(es) [...] 30 days. 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 of aspirin; Translations: [PRISON CURRENT USE OF ASPIRIN] Onset: 03-06-2023 Episodic Other aftercare (1 source) assisted (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 of non-steroidal anti-inflammatories (NSAID); Translations: [PRISON USE NSAID] Onset: 02-08-2023 Episodic Other connective [...] source) assisted (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 of insulin; Translations: [PRISON CURRENT USE OF INSULIN] Onset: 04-05-2022 Episodic Other aftercare (1 source) assisted (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 of anticoagulants; Translations: [OPERATIONS MANAGEMENT TRAINEE CURRNT USE ANTICOAGULANTS] Onset: 04-05-2022 Episodic Other [...] Sanders MD on 01/07/2024 3:35 AM Normal [facility] Office Visiton 09-20-2023 Follow-up visit [id number] Jennifer Tafoya leo Love 1940 F Date Provider Department Center 09/20/2023 MARY LOU FELIZ [facility] Family History Problem Relation Age of Onset Diabetes Sister Diabetes Brother Diabetes Maternal Grandfather Family Status - Relation Status Age at Sister Brother Maternal Grandfather Level of Service:07027 MT OFFICE/OUTPATIENT ESTABLISHED MOD MDM 30-39 MIN Reason for Visit and Comments: Follow-up [451178] Normal [facility] CBC W MANUAL DIFFon 03-08-20 23 ANISOCYTOSIS 1+ Normal [facility] [place] Comment on above: Performed By: #### C BCJERSON ####[facility] [place] Xvmuioiate[address] [place] [address]Dr. Bhavani Barragan ATYPICAL LYMPH # Normal [facility] Comment on above: Performed By: #### C BCMAN ####[facility] [place] Fzgcdghhae[address] [place] [address]Dr. Bhavani Barragan ATYPICAL LYMPH % Normal [facility] Comment on above: Performed By: #### C BCMAN ####[facility] [place] Zkdxjrhogu18[address] [place] [address]Dr. Bhavani Barragan BAND # 1.3 103/ul Critically high 0.0-0.[address] [facility] Comment on above: Performed By: #### C BCMAN ####[facility] [place] Pekfqklryl[address] [place] [address]Dr. Bhavani Barragan BAND % 4 % Normal 0-5 [facility] [place] Comment on above: Performed By: #### C BCMAN ####[facility] [place] Tpzpjkbgah5837 [place] [address]Dr. Bhavani Barragan BASOM # 0.00 103/ul Normal 0.00-0.10 [facility] [place] Comment on above: Performed By: #### C BCJERSON ####[facility] [place] Wraovlymfd16[address] [place] [address]Dr. Bhavani Barragan BASOM % 0.0 % Critically low 0.2-2.0 [facility] Comment on above: Performed By: #### C BCJERSON ####[facility] [place] Kvivslorfz17[address] [place] [address]Dr. Bhavani Barragan BLAST # Normal [facility] Comment on above: Performed By: #### C BCJERSON ####[facility] [place] Jgspkcugvr2502 [place] [address]Dr. Bhavani Barragan BLAST % Normal [facility] [place] Comment on above: Performed By: #### C OMID ####[facility] [place] Vodxepfbke[address] [place], [place] [address]Dr. Bhavani Barragan CORRECTED WBC Normal 4.0-11.0 [facility] Comment on above: Performed By: #### C OMID ####[facility] [place] Thfoyojdbo[address] [place], [place] [address]Dr. Bhavani Barragan EOS # 0.00 103/ul Normal 0.00-0.70 [facility] [place] Comment on above: Performed By: #### C OMID ####[facility] [place] Cbsiuitbgz[address] [place], [place] [address]Dr. Bhavani Barragan EOS% 0.0 % Critically low 0.9-7.0 [facility] Comment on above: Performed By: #### C OMID ####[facility] [place] Qcgbpfsxyp60[address] [place], [place] [address]Dr. Bhavani Barragan HCT 38.1 % Normal 36.0-48.0 [facility] [place] Comment on above: Performed By: #### C OMID ####[facility] [place] Jdpvhuzmlm39[address] [place], [place] [address]Dr. Bhavani Barragan HGB 11.6 g/dl Critically low 12.0-16.0 [facility] Comment on above: Performed By: #### C OMID ####[facility] [place] Lbrymkurxt[address] [place], [place] [address]Dr. Bhavani Barragan LYMPHM # 1.58 103/ul Normal 1.20-3.80 [facility] [place] Comment on above: Performed By: #### C OMID ####[facility] [place] Jqtxxvuxqh9[address] [place] [id number]. Bhavani Barragan LYMPHM% 5.0 % Critically low 20.5-60.0 [facility] Comment on above: Performed By: #### C OMID ####[facility] [place] Bsemadphkh9033 [place] [id number]. Bhavani Barragan MCH 29.7 pg Normal 26.7-34.0 [facility] [place] Comment on above: Performed By: #### C OMID ####[facility] [place] Znpfiqmrqp15[address] [place] [address]Dr. Bhavani Barragan MCHC 30.4 g/dl Normal 29.9-35.2 [facility] [place] Comment on above: Performed By: #### Jany ANNE ####[facility] [place] Dwedqhzuey[address] [place] [address]Dr. Bhavani Barragan MCV 97.7 fL Normal 81.0-99.0 [facility] [place] Comment on above: Performed By: #### Jany ANNE ####[facility] [place] Rhurszelab40[address] [place] [address]Dr. Bhavani Barragan METAMYELOCYTE # Normal [facility] Comment on above: Performed By: #### aJny ANNE ####[facility] [place] Jtuvfzdykt48[address] [place] [address]Dr. Bhavani Barragan METAMYELOCYTE % Normal [facility] Comment on above: Performed By: #### Jany ANNE ####[facility] [place] Pswdukrchm8343 [place] [id number]. Bhavani Barragan MONOM# 0.95 103/ul Critically high 0.30-0.80 [facility] Comment on above: Performed By: #### C OMID ####[facility] [place] Vxycktioqd06[address] [place] [address]Dr. Bhavani Barragan MONOM% 3.0 % Normal 1.7-12.0 [facility] [place] Comment on above: Performed By: #### C OMID ####[facility] [place] Gwjclzphcw32[address] [place], [place] [address]Sq. Bhavani Barragan MPV 10.6 fL Normal 9.5-13.5 [facility] Comment on above: Performed By: #### C OMID ####[facility] [place] Heuqkypagk[address] [place], [place] [address]Ln. Bhavani Barragan MYELOCYTE # Normal [facility] Comment on above: Performed By: #### C OMID ####[facility] [place] Capxlgdkmw1726 [place], [place] [address]Dt. Bhavani Barragan MYELOCYTE % Normal [facility] [place] Comment on above: Performed By: #### C OMID ####[facility] [place] [address] [place] [address]Dr. Bhavani Barragan NRBC Normal [facility] [place] Comment on above: Performed By: #### C OMID ####[facility] [place] Jxavarconu8251 [place] [address]Dr. Bhavani Barragan PLT 280 103/ul Normal 150-450 [facility] Comment on above: Performed By: #### C OMID ####[facility] [place] Mvzqmhrwhr36[address] [place] [address]Dr. Bhavani Barragan RBC 3.90 106/ul Critically low 4.20-5.40 [facility] Comment on above: Performed By: #### C OMID ####[facility] [place] Ptoeccbdas5739 [place] [address]Dr. Bhavani Barragan RDW 18.2 % Critically high 11.0-15.[address] [facility] Comment on above: Performed By: #### C OMID ####[facility] [place] Slqddifswg6820 [place] [address]Dr. Bhavani Barragan SEG # 27.90 103/ul Critically high 1.40-6.50 [facility] Comment on above: Performed By: #### C OMID ####[facility] [place] Klghmvtzbv9440 [place] [address]Dr. Bhavani Barragan SEG % 88.0 % Critically high 43.0-75.[address] [facility] Comment on above: Performed By: #### C OMID ####[facility] [place] Jwqnvsgljl6725 [place] [address]Dr. Bhavani Barragan WBC 31.7 103/ul Critically high 4.0-11.0 [facility] Comment on above: Performed By: #### C OMID ####[facility] [place] Qaigmdfeco8024 [place] [id number]. Bhavani Barragan PERIPHERAL SMEARon 3 Pathologist Cyto stain Nom (Cvx/Vag) [ID] DR. AFTAB SCHAFER Normal [facility] Comment on above: Result Comment: Revi ew of peripheral smear reveals RBCs with anisocytosis. The platelets areadequate in number with normal morphology. There is leukocytosis withneutrophilia. The WBC morphology is unremarkable. No atypical lymphocytes orimmature blasts are seen. The findings are suggestive of a reactive process.Clinical correlation is recommended. Performed By: #### P ERSMR ####[facility] [place] Cszalupqtm[address] [place] [address]Dr. Bhavani Barragan CBC W MANUAL DIFFon 03-01-20 23 ANISOCYTOSIS 1+ Normal [facility] [place] Comment on above: Performed By: #### C OMID ####[facility] [place] O[address]znkyp39[address] [place] [id number]. Bhavani Barragan ATYPICAL LYMPH # Normal [facility] Comment on above: Performed By: #### C OMID ####[facility] [place] Drzdzfvpod7763 [place] [id number]. Bhavani Barragan ATYPICAL LYMPH % Normal [facility] Comment on above: Performed By: #### C OMID ####[facility] [place] Fyopknqswp5274 [place] [address]Dr. Bhavani Barragan BAND # 1.8 103/ul Critically high 0.0-0.[address] [facility] Comment on above: Performed By: #### C OMID ####[facility] [place] Qlwfakguec9912 [place] [address]Dr. Bhavani Barragan BAND % 5 % Normal 0-5 [facility] [place] Comment on above: Performed By: #### C OMID ####[facility] [place] Cnxrsswmze3007 [place] [address]Dr. Bhavani Barragan BASOM # 0.00 103/ul Normal 0.00-0.10 [facility] [place] Comment on above: Performed By: #### C BCMAN ####[facility] [place] Jyyxpstviz8697 [place] [address]Dr. Bhavani Barragan BASOM % 0.0 % Critically low 0.2-2.0 [facility] Comment on above: Performed By: #### C BCMAN ####[facility] [place] Requxeutlb[address] [place] [address]Dr. Bhavani Barragan BLAST # Normal [facility] Comment on above: Performed By: #### C BCMAN ####[facility] [place] Qfsraiqdcv5804 [place] [address]Dr. Bhavani Barragan BLAST % Normal [facility] [place] Comment on above: Performed By: #### C BCJERSON ####[facility] [place] Pdzziresul[address] [place], [place] [address]Dr. Bhavani Barragan CORRECTED WBC Normal 4.0-11.0 [facility] Comment on above: Performed By: #### C BCJERSON ####[facility] [place] Fxwaawbvmu18[address] [place] [address]Dr. Bhavani Barragan EOS # 0.00 103/ul Normal 0.00-0.70 [facility] [place] Comment on above: Performed By: #### C BCMAN ####[facility] [place] Kswepzmlwl3[address] [place] [address]Dr. Bhavani Barragan EOS% 0.0 % Critically low 0.9-7.0 [facility] Comment on above: Performed By: #### C BCMAN ####[facility] [place] Xiiutehwlh55[address] [place] [address]Dr. Bhavani Barragan HCT 32.6 % Critically low 36.0-48.0 [facility] Comment on above: Performed By: #### C BCMAN ####[facility] [place] Kpyrxjwdtd[address] [place], [place] [address]Dr. Bhavani Barragan HGB 10.0 g/dl Critically low 12.0-16.0 [facility] Comment on above: Performed By: #### Jany ANNE ####[facility] [place] Lbrsraxwam0149 [place] [id number]. Bhavani Barragan LYMPHM # 1.75 103/ul Normal 1.20-3.80 [facility] [place] Comment on above: Performed By: #### Jany ANNE ####[facility] [place] Jktpelwdzq1332 [place] [address]Dr. Bhavani Barragan LYMPHM% 5.0 % Critically low 20.5-60.0 [facility] Comment on above: Performed By: #### C OMID ####[facility] [place] Kcqqgycbic3309 [place] [id number]. Bhavani Barragan MCH 29.6 pg Normal 26.7-34.0 [facility] [place] Comment on above: Performed By: #### Jany ANNE ####[facility] [place] Dqcyaqdksl6501 [place] [address]Dr. Bhavani Barragan MCHC 30.7 g/dl Normal 29.9-35.2 [facility] Comment on above: Performed By: #### Jany ANNE ####[facility] [place] Jvszqchakt6273 [place] [address]Dr. Bhavani Barragan MCV 96.4 fL Normal 81.0-99.0 [facility] [place] Comment on above: Performed By: #### Jany ANNE ####[facility] [place] Dcaxgxkikl0460 [place] [address]Dr. Bhavani Barragan METAMYELOCYTE # Normal [facility] Comment on above: Performed By: #### Jany ANNE ####[facility] [place] Ucgdmcppgc1360 [place] [address]Dr. Bhavani Barragan METAMYELOCYTE % Normal [facility] Comment on above: Performed By: #### Jany ANNE ####[facility] [place] Trmvygmvtt9330 [place] [address]Dr. Bhavani Barragan MONOM# 0.70 103/ul Normal 0.30-0.80 [facility] [place] Comment on above: Performed By: #### Jany ANNE ####[facility] [place] Xziggrrunr0112 [place] [address]Dr. Bhavani Barragan MONOM% 2.0 % Normal 1.7-12.0 [facility] [place] Comment on above: Performed By: #### C OMID ####[facility] [place] Yzcknzducz5172 [place] [address]Dr. Bhavani Barragan MPV 9.8 fL Normal 9.5-13.5 [facility] [place] Comment on above: Performed By: #### C OMID ####[facility] [place] Uzhocnfmer3830 [place] [id number]. Bhavani Barragan MYELOCYTE # Normal [facility] Comment on above: Performed By: #### C OMID ####[facility] [place] Cfmmttfphe6008 [place] [id number]. Bhavani Barragan MYELOCYTE % Normal [facility] [place] Comment on above: Performed By: #### C OMID ####[facility] [place] Xcckqgawoz9958 [place] [address]Dr. Bhavani Barragan NRBC Normal [facility] [place] Comment on above: Performed By: #### C OMID ####[facility] [place] Uacyrantzc3262 [place] [address]Dr. Bhavani Barragan PLT 382 103/ul Normal 150-450 [facility] [place] Comment on above: Performed By: #### C OMID ####[facility] [place] Csobrgdzbg3534 [place] [address]Dr. Bhavani Barragan RBC 3.38 106/ul Critically low 4.20-5.[address] [facility] Comment on above: Performed By: #### C OMID ####[facility] [place] Spawkrpqsl5104 [place] [address]Dr. Bhavani Barragan RDW 17.7 % Critically high 11.0-15.[address] [facility] Comment on above: Performed By: #### C OMID ####[facility] [place] Frcqkgjmar1935 [place] [address]Dr. Bhavani Barragan SEG # 30.80 103/ul Critically high 1.40-6.50 [facility] Comment on above: Performed By: #### C OMID ####[facility] [place] Yzboaukcxn0372 [place] [address]Dr. Bhavani Barragan SEG % 88.0 % Critically high 43.0-75.0 [facility] Comment on above: Performed By: #### C OMID ####[facility] [place] Zbuycchtwo3779 [place] [address]Dr. Bhavani Barragan WBC 35.0 103/ul Critically high 4.0-11.[address] [facility] Comment on above: Performed By: #### C OMID ####[facility] [place] Kalawhtvnl[address] [place] [address]Dr. Bhavani Barragan PROF 14(COMP METB)on 023 Albumin [Mass/Vol] 2.6 g/dL Critically low 3.4-5.0 [facility] Comment on above: Performed By: #### C MP, TSH ####[facility] [place] Qyzidfkgkv8725 [place] [address]Dr. Bhavani Barragan Albumin/Globulin [Mass ratio] 0.6 {ratio} Normal [facility] Comment on above: Performed By: #### C MP, TSH ####[facility] [place] Tswrshjhzo7523 [place] [address]Dr. Bhavani Barragan ALP [Catalytic activity/Vol] 117 U/L Critically high 46-116 [facility] Comment on above: Performed By: #### C MP, TSH ####[facility] [place] Agfauogjwt7768 [place] [address]Dr. Bhavani Barragan ALT [Catalytic activity/Vol] 11 U/L Critically low 14-59 [facility] Comment on above: Performed By: #### C MP, TSH ####[facility] [place] Saurfmvcle9846 [place] [address]Dr. Bhavani Barragan Anion gap [Moles/Vol] 13.0 mmol/L Normal [facility] Comment on above: Performed By: #### C MP, TSH ####[facility] [place] Wfzbvhszvz4078 [place] [address]Dr. Bhavani Barragan AST [Catalytic activity/Vol] 19 U/L Normal 15-37 [facility] Comment on above: Performed By: #### C MP, TSH ####[facility] [place] Mrecvizsgt6151 [place] [id number]. Bhavani Barragan Bilirubin [Mass/Vol] 0.4 mg/dL Normal 0.2-1.0 [facility] [place] Comment on above: Performed By: #### C MP, TSH ####[facility] [place] Rmjgcjvrii[address] [place], [place] [address]Dr. Bhavani Barragan Calcium [Mass/Vol] 8.9 mg/dL Normal 8.5-10.1 [facility] Comment on above: Performed By: #### C MP, TSH ####[facility] [place] Pdrcvddzpb0559 [place] [address]Dr. Bhavani Barragan Chloride [Moles/Vol] 103 mmol/L Normal 98-107 [facility] Comment on above: Performed By: #### C MP, TSH ####[facility] [place] Nkclprjmqy033[address] [place], [place] [address]Dr. Bhavani Barragan CO2 [Moles/Vol] 26.8 mmol/L Normal 21.0-32.0 [facility] Comment on above: Performed By: #### C MP, TSH ####[facility] [place] Gyrudvybnw[address] [place], [place] [address]Dr. Bhavani Barragan Creatinine [Mass/Vol] 1.44 mg/dL Critically high 0.55-1.02 [facility] Comment on above: Performed By: #### C MP, TSH ####[facility] [place] Wnylgmtupy3[address] [place], [place] [address]Dr. Bhavani Barragan EGFR-[place] 42 mL/min/1.73m2 Critically low >=60 [facility] [place] Comment on above: Performed By: #### C MP, TSH ####[facility] [place] Ucmfwadjvq[address] [place], [place] [address]Dr. Bhavani Barragan EGFR-NON AF [place]IZ[place] 35 mL/min/1.73m2 Critically low >=60 [facility] [place] Comment on above: Performed By: #### C MP, TSH ####[facility] [place] Ymvbzdotae954[address] [place], [place] [address]Dr. Bhavani Barragan Globulin (S) [Mass/Vol] 4.4 g/dL Normal [facility] Comment on above: Performed By: #### C MP, TSH ####[facility] [place] Cxhvsphakg5345 [place] [id number]. Bhavani Barragan Glucose [Mass/Vol] 90 mg/dL Normal 74-[address] [facility] Comment on above: Performed By: #### C MP, TSH ####[facility] [place] Dfipitzdrn3916 [place] [address]Dr. Bhavani Barragan Potassium [Moles/Vol] 4.8 mmol/L Normal 3.5-5.1 [facility] Comment on above: Performed By: #### C MP, TSH ####[facility] [place] Apglrsnstr0093 [place] [address]Dr. Bhavani Barragan Protein [Mass/Vol] 7.0 g/dL Normal 6.4-8.[address] [facility] Comment on above: Performed By: #### C MP, TSH ####[facility] [place] Nhqpeutgdo[address] [place], [place] [address]Dr. Bhavani Barragan Sodium [Moles/Vol] 138 mmol/L Normal 136-[address] [facility] Comment on above: Performed By: #### C MP, TSH ####[facility] [place] Zeyhgsforv7[address] [place], [place] [address]Dr. Bhavani Barragan Urea nitrogen [Mass/Vol] 32.0 mg/dL Critically high 7.0-18.0 [facility] Comment on above: Performed By: #### C MP, TSH ####[facility] [place] Xdouvqrnbc[address] [place], [place] [address]Dr. Bhavani Barragan Urea nitrogen/Creatinine [Mass ratio] 22.2 mg/mg Normal [facility] Comment on above: Performed By: #### C MP, TSH ####[facility] [place] Mtkxkhxnqx8097 [place] [address]Dr. Bhavani Barragan TSHon 03-01-2023 TSH 3.630 uIU/mL Normal 0.358-3.740 [facility] Comment on above: Performed By: #### C MP, TSH ####[facility] [place] Xmjlqcwgrv[address] [place], [place] [address]Dr. Bhavani Barragan CULTURE URINEon 02-09-2023 CULTURE URINE Normal [facility] Comment on above: Performed By: #### U RCX ####[facility] [place] Tumuwwfymz6[address] [place] [address]Dr. Bhavani Barragan CBC W MANUAL DIFFon 02-07-20 ANISOCYTOSIS 1+ Normal [facility] Comment on above: Performed By: #### C BCMAN ####[facility] [place] Sxxyalenfn3813 [place] [address]Dr. Bhavani Barragan ATYPICAL LYMPH # Normal [facility] Comment on above: Performed By: #### C BCMAN ####[facility] [place] Bgaicxhzwn[address] [place], [place] [address]Dr. Bhavani Barragan ATYPICAL LYMPH % Normal [facility] Comment on above: Performed By: #### C BCMAN ####[facility] [place] Fdbtpenwcy[address] [place], [place] [address]Dr. Jayceeroxi Barragan BAND # 1.2 103/ul Critically high 0.0-0.3 [facility] Comment on above: Performed By: #### C BCMAN ####[facility] [place] Glyubxasqt719[address] [place], [place] [address]Dr. Bhavani Laurel BAND % 5 % Normal 0-5 [facility] [place] Comment on above: Performed By: #### C BCMAN ####[facility] [place] Zbshizhqys[address] [place], [place] [address]Dr. Bhavani Barragan BASOM # 0.00 103/ul Normal 0.00-0.10 [facility] [place] Comment on above: Performed By: #### C BCMAN ####[facility] [place] Aqokupjbmn[address] [place], [place] [address]Dr. Bhavani Laurel BASOM % 0.0 % Critically low 0.2-2.0 [facility] Comment on above: Performed By: #### C BCMAN ####[facility] [place] Mwlyndjutj[address] [place], [place] [address]Dr. Bhavani Barragan BLAST # Normal [facility] Comment on above: Performed By: #### C BCMAN ####[facility] [place] Bwfyhkbtsf[address] [place], [place] [address]Dr. Bhavani Barragan BLAST % Normal [facility] Comment on above: Performed By: #### C OMID ####[facility] [place] Utzsigbilt[address] [place] [id number]. Bhavani Barragan CORRECTED WBC Normal 4.0-11.0 [facility] Comment on above: Performed By: #### C OMID ####[facility] [place] Zkjscqkimn[address] [place] [id number]. Bhavani Barragan EOS # 0.00 103/ul Normal 0.00-0.70 [facility] Comment on above: Performed By: #### C OMID ####[facility] [place] Ltoxomnewq[address] [place] [id number]. Bhavani Barragan EOS% 0.0 % Critically low 0.9-7.0 [facility] Comment on above: Performed By: #### C OMID ####[facility] [place] Dthhkwkrfp9[address] [place] [id number]. Bhavani Barragan HCT 39.3 % Normal 36.0-48.0 [facility] Comment on above: Performed By: #### C OMID ####[facility] [place] Hmahxglnes[address] [place] [id number]. Bhavani Barragan HGB 12.6 g/dl Normal 12.0-16.0 [facility] Comment on above: Performed By: #### C OMID ####[facility] [place] Izjfqpcvsf[address] [place] [id number]. Bhavani Barragan LYMPHM # 2.11 103/ul Normal 1.20-3.80 [facility] [place] Comment on above: Performed By: #### C OMID ####[facility] [place] Zhrrpoeqxo35[address] [place] [id number]. Bhavani Barragan LYMPHM% 9.0 % Critically low 20.5-60.0 [facility] Comment on above: Performed By: #### C OMID ####[facility] [place] Dskgwlpdkq57[address] [place] [id number]. Bhavani Barragan MCH 29.6 pg Normal 26.7-34.0 The [facility] [place] Comment on above: Performed By: #### C OMID ####[facility] [place] Wwrnjyatju6[address] [place] [id number]. Bhavani Barragan MCHC 32.1 g/dl Normal 29.9-35.2 [facility] Comment on above: Performed By: #### Jany ANNE ####[facility] [place] Tswtadlvdo32[address] [place] [id number]. Bhavani Barragan MCV 92.3 fL Normal 81.0-99.0 [facility] [place] Comment on above: Performed By: #### C OMID ####[facility] [place] Pvaftbnpdm[address] [place] [address]Dr. Bhavani Barragan METAMYELOCYTE # Normal [facility] Comment on above: Performed By: #### Jany ANNE ####[facility] [place] Jaorroemmn[address] [place] [address]Dr. Bhavani Barragan METAMYELOCYTE % Normal [facility] Comment on above: Performed By: #### Jany ANNE ####[facility] [place] Ijeakkahbx[address] [place], [place] [address]Dr. Bhavani Barragan MONOM# 0.94 103/ul Critically high 0.30-0.[address] [facility] Comment on above: Performed By: #### Jany ANNE ####[facility] [place] Ufybgejwmp[address] [place], [place] [address]Dr. Bhavani Barragan MONOM% 4.0 % Normal 1.7-12.0 [facility] Comment on above: Performed By: #### Jany ANNE ####[facility] [place] Xejyumcocm[address] [place] [address]Dr. Bhavani Barragan MPV 11.0 fL Normal 9.5-13.5 The [facility] [place] Comment on above: Performed By: #### Jany ANNE ####[facility] [place] Yypnlxdwud[address] [place], [place] [address]Dr. Bhavani Barragan MYELOCYTE # Normal The [facility] [place] Comment on above: Performed By: #### Jany ANNE ####[facility] [place] Kmymwaegij[address] [place], [place] [address]Dr. Bhavani Barragan MYELOCYTE % Normal The [facility] [place] Comment on above: Performed By: #### C OMID ####[facility] [place] Ekztgbzinq1155 [place], [place] [address]Je. Bhavani Barragan NRBC Normal The [facility] [place] Comment on above: Performed By: #### C OMID ####[facility] [place] Gxyyrlmvdl[address] [place] [id number]. Bhavani Barragan PLT 198 103/ul Normal 150-450 [facility] [place] Comment on above: Performed By: #### C OMID ####[facility] [place] Xbgvamfpad045[address] [place] [id number]. Bhavani Barragan RBC 4.26 106/ul Normal 4.20-5.40 [facility] [place] Comment on above: Performed By: #### C OMID ####[facility] [place] Ryidsxcqau[address] [place] [address]Dr. Bhavani Barragan RDW 16.3 % Critically high 11.0-15.[address] [facility] Comment on above: Performed By: #### C OMID ####[facility] [place] Hyahfvvzpz75[address] [place] [id number]. Bhavani Barragan SEG # 19.19 103/ul Critically high 1.40-6.50 [facility] Comment on above: Performed By: #### C OMID ####[facility] [place] Gmyuqhfpgz70[address] [place] [address]Dr. Bhavani Barragan SEG % 82.0 % Critically high 43.0-75.[address] [facility] Comment on above: Performed By: #### Jany ANNE ####[facility] [place] Azybtxwbzx9603 [place] [address]Dr. Bhavani Barragan WBC 23.4 103/ul Critically high 4.0-11.0 [facility] Comment on above: Performed By: #### C OMID ####[facility] [place] Pbtzofm[address] [place], [place] [address]Dr. Bhavani Barragan CT LSPINE WO CONon 3 CT LSPINE WO CON Normal [facility] CT PELVIS WO CONon 3 CT PELVIS WO CON Normal [facility] CULTURE BLOODon 02-06-2023 Microscopic examination of blood, culture Culture Observations: NO GROWTH AT 5 DAYS. Normal The [facility] [place] Comment on above: Performed By: #### B LDCX2 ####[facility] [place] Rrqvnkutdw[address] [place] [address]Dr. Jayceeroxi Barragan Performed By: #### B LDCX1 ####[facility] [place] Yjlhbjdplp[address] [place] [address]Dr. Bhavani Barragan Covid-19 PCR (CVDTB)on 01-17 SARS-CoV-2 (COVID-19) RNA MATTHEW+probe Ql (Unsp spec) Not detected Normal NOT DETECTED The [facility] [place] Comment on above: Result Comment: When diagnostic [...] for this test is supported by the Community Services Officer of Health and Human Service's declaration that [...] be used). Performed By: #### C VDTBH ####[facility] [place] Rbvwmfapjy22[address] [place] [address]Dr. Bhavani Laurel ER URINE PROFILEon 3 Bilirubin Ql (U) Negative Normal NEGATIVE [facility] Comment on above: Performed By: #### U MICRO, ERUR ####[facility] [place] Itfaff[address] [place], [place] [address]Dr. Bhavani Barragan Clarity (U) SL CLOUDY Abnormal CLEAR The [facility] [place] Comment on above: Performed By: #### U MICRO, ERUR ####[facility] [place] Rqnttdqiqo[address] [place], [place] [address]Dr. Yilan Barragan Color (U) LT. YELLOW Normal YELLOW [facility] Comment on above: Performed By: #### U MICRO, ERUR ####[facility] [place] Pwpyptcqno[address] [place], [place] [address]Dr. Bhavani HSUD A micrscopic examination will be performed if indicated. Normal The [facility] [place] Comment on above: Performed By: #### U MICRO, ERUR ####[facility] [place] Thzxcetvvb[address] [place], [place] [address]Dr. Bhavani Barragan Glucose Ql (U) Negative Normal NEGATIVE [facility] Comment on above: Performed By: #### U MICRO, ERUR ####[facility] [place] Hhbzizviac8[address] [place], [place] [address]Dr. Bhavani Barragan Hemoglobin Ql (U) TRACE-INTACT Abnormal NEGATIVE [facility] Comment on above: Performed By: #### U MICRO, ERUR ####[facility] [place] Vrylvtruey[address] [place], [place] [address]Dr. Bhavani Barragan Ketones Ql (U) Negative Normal NEGATIVE [facility] Comment on above: Performed By: #### U MICRO, ERUR ####[facility] [place] Xqhpsxwshl[address] [place], [place] [address]Dr. Bhavani Barragan LEUKOCYTES SMALL Abnormal NEGATIVE [facility] Comment on above: Performed By: #### U MICRO, ERUR ####[facility] [place] Cclxwsuhsw[address] [place], [place] [address]Dr. Bhavani Barragan Nitrite Ql (U) Positive Abnormal NEGATIVE [facility] Comment on above: Performed By: #### U MICRO, ERUR ####[facility] [place] Gqjoytihkj[address] [place], [place] [address]Dr. Bhavani Barragan pH (U) 6.0 [pH] Normal 5-9 [facility] Comment on above: Performed By: #### U MICRO, ERUR ####[facility] [place] Uymprejusk[address] [place], [place] [address]Dr. Bhavani Barragan Protein (U) [Mass/Vol] 30 mg/dL Abnormal NEGATIVE/ TRACE [facility] Comment on above: Performed By: #### U MICRO, ERUR ####[facility] [place] Xcqtpngodd[address] [place] [address]Dr. Bhavani Barragan SPEC GRAVITY 1.020 Normal 1.005-<=1.02 5 [facility] Comment on above: Performed By: #### U MICRO, ERUR ####[facility] [place] Ieljpsjvqg[address] [place] [address]Dr. Bhavani Barragan UR MICRO IND INDICATED Normal [facility] [place] Comment on above: Performed By: #### U MICRO, ERUR ####[facility] [place] Voxnvsyxgu[address] [place] [address]Dr. Bhavani Barragan Urobilinogen Qn (U) 0.2 {Ridge'U}/dL Normal 0.2 - 1. 0 The [facility] [place] Comment on above: Performed By: #### U MICRO, ERUR ####[facility] [place] Saltgjyqpw[address] [place] [address]Dr. Bhavani Barragan LACTATE/LACTIC ACIDon 2022 Lactate [Moles/Vol] 1.5 mmol/L Normal 0.4-2.0 [facility] Comment on above: Performed By: #### L ACT ####[facility] [place] Gatprpxksx[address] [place], [place] [address]Dr. Bhavani Barragan PROF CHEM 8 (BAS METB)on Anion gap [Moles/Vol] 14.7 mmol/L Normal [facility] Comment on above: Performed By: #### B MP ####[facility] [place] Qgiktrmcwy[address] [place] [address]Dr. Bhavani Barragan Calcium [Mass/Vol] 8.2 mg/dL Critically low 8.5-10.1 Th e [facility] [place] Comment on above: Performed By: #### B MP ####[facility] [place] Zyagwctpez[address] [place] [address]Dr. Bhavani Barragan Chloride [Moles/Vol] 103 mmol/L Normal 98-107 [facility] Comment on above: Performed By: #### B MP ####[facility] [place] Batqinuulv4[address] [place] [address]Dr. Bhavani Barragan CO2 [Moles/Vol] 22.4 mmol/L Normal 21.0-32.[address] [facility] Comment on above: Performed By: #### B MP ####[facility] [place] Jxsyupcjle57[address] [place] [address]Dr. Jayceeroxi Laurel Creatinine [Mass/Vol] 1.39 mg/dL Critically high 0.55-1.02 [facility] Comment on above: Performed By: #### B MP ####[facility] [place] Jgjllsqhye[address] [place] [address]Dr. Bhavani Barragan EGFR-[place] 44 mL/min/1.73m2 Critically low >=60 [facility] Comment on above: Performed By: #### B MP ####[facility] [place] Rzlaikzrqy[address] [place] [address]Dr. Bhavani Barragan EGFR-NON AF [place]IZ[place] 36 mL/min/1.73m2 Critically low >=60 [facility] Comment on above: Performed By: #### B MP ####[facility] [place] Klzwnspslh[address] [place], [place] [address]Dr. Bhavani Barragan Glucose [Mass/Vol] 161 mg/dL Critically high 74-106 [facility] Comment on above: Performed By: #### B MP ####[facility] [place] Anfvmvpnfh[address] [place], [place] [address]Dr. Bhavani Barragan Potassium [Moles/Vol] 4.1 mmol/L Normal 3.5-5.1 [facility] Comment on above: Performed By: #### B MP ####[facility] [place] Lutdlhoixq8[address] [place], [place] [address]Dr. Bhavani Barragan Sodium [Moles/Vol] 136 mmol/L Normal 136-145 [facility] Comment on above: Performed By: #### B MP ####[facility] [place] N[address]wk[address] [place], [place] [address]Dr. Bhavani Barragan Urea nitrogen [Mass/Vol] 23.0 mg/dL Critically high 7.0-18.0 [facility] Comment on above: Performed By: #### B MP ####[facility] [place] T[address]xyw[address] [place], [place] [address]Dr. Bhavani Barragan Urea nitrogen/Creatinine [Mass ratio] 16.5 mg/mg Normal The [facility] [place] Comment on above: Performed By: #### B MP ####[facility] [place] Sqjeblrsrr[address] [place], [place] [address]Dr. Bhavani Barragan PROTIMEon 02-06-2023 INR Coag (PPP) [Relative time] 1.12 {INR} Normal The [facility] [place] Comment on above: Performed By: #### P TT, PT ####[facility] [place] Znvzipgkwh[address] [place], [place] [address]Dr. Bhavani Barragan INR GUIDELINES SEE BELOW Normal [facility] Comment on above: Result Comment: WALKER RED INR: 2.0 - 3.0 CONDITIONS NOT LISTED BELOW 2.5 - 3.5 FOR PROSTHETIC HEART VALVE REPLACEMENT 2.5 - 3.5 RECURRENT THROMBOSIS Performed By: #### P TT, PT ####[facility] [place] Bjeecqraxn[address] [place], [place] [address]Dr. Bhavani Barragan PT Coag (PPP) [Time] 11.8 s Critically high 9.0-11.6 The [facility] [place] Comment on above: Performed By: #### P TT, PT ####[facility] [place] Zfuewhhejv[address] [place], [place] [address]Dr. Bhavani Barragan PTTon 02-06-2023 aPTT Coag (Bld) [Time] 23.8 s Normal 22.3-36.2 The [facility] [place] Comment on above: Performed By: #### P TT, PT ####[facility] [place] Liploefjwo[address] [place], [place] [address]Dr. Bhavani Barragan URINE MICROSCOPIC ONLYon BACTERIA LARGE Abnormal NONE SEEN The [facility] [place] Comment on above: Performed By: #### U MICRO, ERUR ####[facility] [place] Nnxkesiqll[address] [place], [place] [address]Dr. Bhavani Barragan Bacteria identified Cx Nom (U) INDICATED Normal The [facility] [place] Comment on above: Performed By: #### U MICRO, ERUR ####[facility] [place] Cxevknigoi[address] [place], [place] [address]Dr. Bhavani Barragan CAST NONE SEEN Normal NONE SEEN The [facility] [place] Comment on above: Performed By: #### U MICRO, ERUR ####[facility] [place] Fvgnuudmfk[address] [place] [address]Dr. Bhavani Barragan Crystals LM Nom (Urine sed) NONE SEEN Normal NONE SEEN The [facility] [place] Comment on above: Performed By: #### U MICRO, ERUR ####[facility] [place] Gqzcqlzjwj99[address] [place] [address]Dr. Bhavani Barragan Epithelial cells LM Ql (Urine sed) RARE Normal NONE SEEN /RARE The [facility] [place] Comment on above: Performed By: #### U MICRO, ERUR ####[facility] [place] Uvzvuibjie9[address] [place] [address]Dr. Bhavani Barragan MUCOUS NONE SEEN Normal NONE SEEN The [facility] [place] Comment on above: Performed By: #### U MICRO, ERUR ####[facility] [place] Ttosftyshj[address] [place] [address]Dr. Bhavani Barragan RBC 0-2 Normal 0-2 The [facility] [place] Comment on above: Performed By: #### U MICRO, ERUR ####[facility] [place] Oqdyzhidnw98[address] [place] [address]Dr. Bhavani Barragan WBC 10-20 Abnormal NONE SEEN The [facility] [place] Comment on above: Performed By: #### U MICRO, ERUR ####[facility] [place] P[address]wvijqmo[address] [place] [address]Dr. Bhavani Barragan XR CHEST 1 Von 02-06-2023 XR CHEST 1 V Normal [facility] [place] XR FEMUR RTon 02-06-2023 XR FEMUR RT Normal [facility] [place] Orders Onlyon 01-22-2023 Orders Only [id number] Jennifer Tafoya 1940 F Date Provider Department [facility]/2023 [facility] Family History Problem Relation Age of Onset Diabetes Sister Diabetes Brother Diabetes Maternal Grandfather Family Status - Relation Status Age at Sister Brother Maternal Grandfather Normal [facility] CBC AUTO DIFFon 01-18-2023 BASO # 0.1 103/ul Normal 0.0-0.1 The [facility] [place] Comment on above: Performed By: #### C BC ####[facility] [place] Mcdmxhtbrm[address] [place] [address]Dr. Bhavani Barragan Basophils/100 WBC (Bld) 0.7 % Normal 0.2-2.0 The [facility] [place] Comment on above: Performed By: #### C BC ####[facility] [place] Hycsvkppoq[address] [place] [address]Dr. Bhavani Barragan EO # 0.0 103/ul Normal 0.0-0.7 The [facility] [place] Comment on above: Performed By: #### C BC ####[facility] [place] Ysbqclxyhy[address] [place] [address]Dr. Bhavani Barragan Eosinophils/100 WBC (Bld) 0.2 % Critically low 0.9-7.0 The [facility] [place] Comment on above: Performed By: #### C BC ####[facility] [place] Xcpvsodkiy[address] [place], [place] [address]Dr. Bhavani Barragan Erythrocyte distribution width (RBC) [Ratio] 16.4 % Critically high 11.0-15.0 The [facility] [place] Comment on above: Performed By: #### C BC ####[facility] [place] V[address]ys[address] [place], [place] [address]Dr. Bhavani Barragan Hematocrit (Bld) [Volume fraction] 41.5 % Normal 36.0-48.0 The [facility] [place] Comment on above: Performed By: #### C BC ####[facility] [place] X[address]fe[address]we[address] [place], [place] [address]Dr. Bhavani Barragan Hemoglobin (Bld) [Mass/Vol] 13.0 g/dL Normal 12.0-16.0 The [facility] [place] Comment on above: Performed By: #### C BC ####[facility] [place] Bfxzuadcia[address] [place] [address]Dr. Bhavani Barragan IG # 0.24 10e3/ul Critically high 0.00-0.03 The [facility] Comment on above: Performed By: #### C BC ####[facility] [place] [address] [place], [place] [address]Dr. Bhavani Barragan IG % 1.3 % Critically high 0.0-0.[address] [facility] Comment on above: Performed By: #### C BC ####[facility] [place] Yrhnmlpwwb0746 [place], [place] [address]Th. Bhavani Barragan LYMPH # 1.5 103/ul Normal 1.2-3.8 The [facility] [place] Comment on above: Performed By: #### C BC ####[facility] [place] Itxlixbogb5013 [place], [place] [address]Nc. Bhavani Barragan Lymphocytes/100 WBC (Bld) 8.1 % Critically low 20.5-60.0 The [facility] [place] Comment on above: Performed By: #### C BC ####[facility] [place] Ofubxinocf5792 [place], [place] [address]Cn. Bhavani Laurel MANUAL DIFF REQ NO Normal [facility] Comment on above: Performed By: #### C BC ####[facility] [place] Jrwfjquiaw6166 [place], [place] [address]Wy. Bhavani Laurel MCH (RBC) [Entitic mass] 28.9 pg Normal 26.7-34.0 The [facility] [place] Comment on above: Performed By: #### C BC ####[facility] [place] Qnvhlzntsn7767 [place] [address]Dr. Bhavani Barragan MCHC (RBC) [Mass/Vol] 31.3 g/dL Normal 29.9-35.2 The [facility] [place] Comment on above: Performed By: #### C BC ####[facility] [place] Dvqgdctqfu8426 [place], [place] [address]Ul. Bhavani Barragan MCV (RBC) [Entitic vol] 92.2 fL Normal 81.0-99.0 The [facility] [place] Comment on above: Performed By: #### C BC ####[facility] [place] Ixeonukejr[address] [place] [address]Dr. Bhavani Barragan MONO # 0.2 103/ul Critically low 0.3-0.8 [facility] Comment on above: Performed By: #### C BC ####[facility] [place] Gemxrhfudg7735 [place], [place] [address]Cv. Bhavani Laurel Monocytes/100 WBC (Bld) 1.3 % Critically low 1.7-12.0 The [facility] [place] Comment on above: Performed By: #### C BC ####[facility] [place] Wnrleggdlq0653 [place] [address]Dr. Bhavani Barragan NEUT # 16.0 103/ul Critically high 1.4-6.5 [facility] Comment on above: Performed By: #### C BC ####[facility] [place] Xjtlawjtcz9779 [place] [address]Dr. Bhavani Barragan Neutrophils/100 WBC (Bld) 88.4 % Critically high 43.0-75.0 The [facility] [place] Comment on above: Performed By: #### C BC ####[facility] [place] Ncjxohwqow1349 [place] [address]Dr. Bhavani Barragan Platelet mean volume (Bld) [Entitic vol] 12.1 fL Normal 9.5-13.5 The [facility] [place] Comment on above: Performed By: #### C BC ####[facility] [place] Vjxgciacth264[address] [place] [address]Dr. Bhavani Barragan PLT 170 103/ul Normal 150-450 The [facility] [place] Comment on above: Performed By: #### C BC ####[facility] [place] Kwdvaiiggl2147 [place] [address]Dr. Bhavani Barragan RBC 4.50 106/ul Normal 4.20-5.40 The [facility] [place] Comment on above: Performed By: #### C BC ####[facility] [place] Nghcqytoef6862 [place] [address]Dr. Bhavani Barragan WBC 18.1 103/ul Critically high 4.0-11.0 [facility] Comment on above: Performed By: #### C BC ####[facility] [place] Dsznrtkaor9975 [place] [address]Dr. Bhavani Barragan ECHOCARDIO M/2D COMPLETEon 0 01-18-2023 ECHOCARDIO M/2D COMPLETE Normal [facility] [place] Office Visiton 12-25-2022 Follow-up visit [id number] Jennifer Tafoya 1940 F Date Provider Department Center 12/25/2022 TRACI LICEA [facility] Family History Problem Relation Age of Onset Diabetes Sister Diabetes Brother Diabetes Maternal Grandfather Family Status - Relation Status Age at Sister Brother Maternal Grandfather Level of Service:72585 [place] OFFICE/OUTPATIENT ESTABLISHED MOD MDM 30-39 MIN Reason for Visit and Comments: Atrial Fibrillation [80] Normal [facility] Endoscopy Reporton Endoscopy Report MR#: [id number] [facility] Pt. Name: María Elena Tafoya Surgery Date: [...] Barillas M.D. Date Trans: 06/27/2022 03:26 A/erik [id number] cc: Bennie Albright M.D. [address], [place] [address] [facility] ABDOMEN 1 [facility] 06-26-2022 ABDOMEN 1 [facility] Department of Radiology [address] [place] [id number] ======== Patient Name: MARÍA ELENA TAFOYA [...] identified. Electronically signed: Roge Bah. Transcribed by: [email or web address], User Resident: Electronically Signed by: ROGE BAH @ 06/26/2022 11:52 AM Normal The [facility] Comment on above: Order Comment: Check Stent Position, NO ERCPon 06-26-2022 ERCP [facility] Department of Radiology [address] [place] [id number] ======== Patient Name: MARÍA ELENA TAFOYA : 1940 Sex: F Age: Race: White Pt. Location: [facility] Patient Status: Ordered Date: 06/26/2022 5:00:00 AM [...] details. Electronically signed: FARSHAD SILVA. Transcribed by: [email or web address], User Resident: Electronically Signed by: FARSHAD SILVA @ 06/27/2022 09:15 AM Normal The [facility] Comment on above: Order Comment: , [place] ointment Date: 06/26/2022 , Appointment Time: 1015 , Appointment Date: 06/26/2022 , Appointment Time: 1015 , , , Ordering Provider - ELIU BRAUN MD , POC GLUCOSE LABon 06-26-2022 Glucose [Mass/Vol] 121 mg/dL High 70-100 [facility] Comment on above: Performed By: #### 8 [id number] #### [facility] [address] [facility] [place] [address], [facility] Glucose [Mass/Vol] 116 mg/dL High 70-100 [facility] Comment on above: Performed By: #### 8 [id number] #### [facility] [address] POC SARS COV2 IDon 2 SARS-CoV-2 (COVID-19) RNA MATTHEW+probe Ql (Unsp spec) Negative Normal NEGATIVE [facility] Comment on above: Result Comment: ID N [...] Accreditation. Performed By: #### 8 5499 #### [facility] [address] [place] [address], [facility] XR MODIFIED BARIUM SWALLOWon 05-08-2022 XR MODIFIED BARIUM SWALLOW Normal [facility] POC GLUCOSE LABon 04-16-2022 Glucose [Mass/Vol] 103 mg/dL High 70-100 [facility] Comment on above: Performed By: #### 8 5499 ####[facility] POC GLUCOSE LABon 04-15-2022 Glucose [Mass/Vol] 112 mg/dL High 70-100 [facility] Comment on above: Performed By: #### 8 5499 #### [facility] [address] [place] [address], [facility] Glucose [Mass/Vol] 131 mg/dL High 70-100 [facility] Comment on above: Performed By: #### 8 5499 #### [facility] [address] [place] [address], [place] Glucose [Mass/Vol] 122 mg/dL High 70-100 The [facility] Comment on above: Performed By: #### 5 0608 #### [facility] [address] [place] [address], [place] Glucose [Mass/Vol] 118 mg/dL High 70-100 [facility] Comment on above: Performed By: #### 8 5499 #### [facility] [address] [place] [address], [place] BASIC METABOLIC PANELon 05-2 Calcium [Mass/Vol] 8.1 mg/dL Low 8.6-10.3 The [facility] Comment on above: Order Comment: No: D o not add to previous draw Performed By: #### 2 2706 #### [facility] [address] [place] [address], [place] Chloride [Moles/Vol] 104 mmol/L Normal 98-107 [facility] Comment on above: Order Comment: No: D o not add to previous draw Performed By: #### 2 2706 #### [facility] [address] [place] [address], [place] CO2 [Moles/Vol] 27 mmol/L Normal 21-31 The [facility] Comment on above: Order Comment: No: D o not add to previous draw Performed By: #### 2 2706 #### [facility] [address] [place] [address], [place] Creatinine [Mass/Vol] 1.34 mg/dL High 0.60-1.20 [facility] Comment on above: Order Comment: No: D o not add to previous draw Performed By: #### 2 2836 #### [facility] [address] [place] [address], [place] eGFR- 46 ml/min/1.73sq m Abnormal >60 The [facility] Comment on above: Order Comment: No: D o not add to previous draw Result Comment: Calc ulation may not be valid for patients over 70 years Performed By: #### 2 2706 #### [facility] [address] [place] [address], [facility] eGFR- non- 38 ml/min/1.73sq m Abnormal >60 The [facility] Comment on above: Order Comment: No: D o not add to previous draw Result Comment: Calc ulation may not be valid for patients over 70 years Performed By: #### 2 2706 #### [facility] [address] [place] [address], [place] Glucose [Mass/Vol] 106 mg/dL High 70-100 The [facility] Comment on above: Order Comment: No: D o not add to previous draw Performed By: #### 2 2706 #### [facility] [address] [place] [address], [place] Potassium [Moles/Vol] 4.9 mmol/L Normal 3.5-5.1 [facility] Comment on above: Order Comment: No: D o not add to previous draw Performed By: #### 2 2706 #### [facility] [address] [place] [address], [place] Sodium [Moles/Vol] 135 mmol/L Low 136-145 The [facility] Comment on above: Order Comment: No: D o not add to previous draw Performed By: #### 2 2706 #### [facility] [address] [place] [address], [place] Urea nitrogen [Mass/Vol] 22 mg/dL Normal 7-25 [facility] Comment on above: Order Comment: No: D o not add to previous draw Performed By: #### 2 2706 #### [facility] [address] [place] [address], [place] CBC COMPLETE BLOOD COUNTon 0 5-28-2022 Erythrocyte distribution width (RBC) [Ratio] 20.9 % High 11.5-15.0 [facility] Comment on above: Order Comment: No: D o not add to previous draw Performed By: #### 8 5499 #### [facility] [address] [place] [address], [facility] Hematocrit (Bld) [Volume fraction] 27.5 % Low 36.0-45.0 [facility] Comment on above: Order Comment: No: D o not add to previous draw Performed By: #### 8 5499 #### [facility] [address] [place] [address], [facility] Hemoglobin (Bld) [Mass/Vol] 8.5 g/dL Low 12.0-15.0 [facility] Comment on above: Order Comment: No: D o not add to previous draw Performed By: #### 8 5499 #### [facility] [address] [place] [address], [place] IMM PLATELET FRAC 10.2 % High 0.8-6.3 The [facility] Comment on above: Order Comment: No: D o not add to previous draw Performed By: #### 8 5499 #### [facility] [address] [place] [address], [place] MCH (RBC) [Entitic mass] 31.1 pg Normal 27.0-33.0 [facility] Comment on above: Order Comment: No: D o not add to previous draw Performed By: #### 8 5499 #### [facility] [address] [place] [address], [place] MCHC (RBC) [Mass/Vol] 30.9 g/dL Low 32.0-35.0 [facility] Comment on above: Order Comment: No: D o not add to previous draw Performed By: #### 8 5499 #### [facility] [address] [place] [address], [place] MCV (RBC) [Entitic vol] 100.7 fL High 82.0-98.0 [facility] Comment on above: Order Comment: No: D o not add to previous draw Performed By: #### 8 5499 #### [facility] [address] [place] [id number], [facility] Nucleated RBC/100 WBC (Bld) [Ratio] 0 % Normal 0-0 [facility] Comment on above: Order Comment: No: D o not add to previous draw Performed By: #### 8 5499 #### [facility] [address] [place] [address], [facility] PLAT ESTIMATE Normal Normal The [facility] Comment on above: Order Comment: No: D o not add to previous draw Result Comment: EDTA smear shows platelet clumping, see platelet estimate Performed By: #### 8 5499 #### [facility] [address] [place] [id number], [facility] RBC (Bld) [#/Vol] 2.73 10*6/uL Low 3.80-5.00 The [facility] Comment on above: Order Comment: No: D o not add to previous draw Performed By: #### 8 5499 #### [facility] [address] [place] [address], [place] WBC (Bld) [#/Vol] 19.62 10*3/uL High 4.00-10.60 [facility] Comment on above: Order Comment: No: D o not add to previous draw Performed By: #### 8 5499 #### [facility] [address] [place] [id number], [facility] MAGNESIUM BLOODon 04-14-2022 Magnesium [Mass/Vol] 1.9 mg/dL Normal 1.9-2.7 [facility] Comment on above: Order Comment: No: D o not add to previous draw Performed By: #### 2 2706 #### [facility] [address] [place] [address], [place] POC GLUCOSE LABon 04-14-2022 Glucose [Mass/Vol] 117 mg/dL High 70-100 [facility] Comment on above: Performed By: #### 3 0313 #### [facility] [address] [place] [address], [place] Glucose [Mass/Vol] 119 mg/dL High 70-100 [facility] Comment on above: Performed By: #### 8 5499 #### [facility] [address] [place] [address], [place] Glucose [Mass/Vol] 113 mg/dL High 70-100 [facility] Comment on above: Performed By: #### 8 5499 #### [facility] [address] [place] [address], [place] Glucose [Mass/Vol] 112 mg/dL High 70-100 [facility] Comment on above: Performed By: #### 8 5499 #### [facility] [address] [place] [address], [place] BASIC METABOLIC PANELon 03-19 Calcium [Mass/Vol] 8.4 mg/dL Low 8.6-10.3 [facility] Comment on above: Order Comment: Bleed , altereed mental status Performed By: #### 4 1000, 30832, 47657 ####[facility] [place] [address], [place] Chloride [Moles/Vol] 105 mmol/L Normal 98-107 [facility] Comment on above: Order Comment: Bleed , altereed mental status Performed By: #### 4 1000, 22768, 16137 ####[facility] [place] [address], [place] CO2 [Moles/Vol] 24 mmol/L Normal 21-31 [facility] Comment on above: Order Comment: Bleed , altereed mental status Performed By: #### 4 1000, , 68930 ####[facility] [place] [address], [facility] Creatinine [Mass/Vol] 1.31 mg/dL High 0.60-1.20 [facility] Comment on above: Order Comment: Bleed , altereed mental status Performed By: #### 4 1000, , 51352 ####[facility] [place] [address], [facility] eGFR- 47 ml/min/1.73sq m Abnormal >60 The [facility] Comment on above: Order Comment: Bleed , altereed mental status Result Comment: Calc ulation may not be valid for patients over 70 years Performed By: #### 4 1000, , 35918 ####[facility] [place] [address], [facility] eGFR- non- 39 ml/min/1.73sq m Abnormal >60 [facility] Comment on above: Order Comment: Bleed , altereed mental status Result Comment: Calc ulation may not be valid for patients over 70 years Performed By: #### 4 1000, , 68898 ####[facility] [place] [address], [place] Glucose [Mass/Vol] 85 mg/dL Normal 70-100 [facility] Comment on above: Order Comment: Bleed , altereed mental status Performed By: #### 4 1000, , 14840 ####[facility] [place] [address], [place] Potassium [Moles/Vol] 5.2 mmol/L High 3.5-5.1 [facility] Comment on above: Order Comment: Bleed , altereed mental status Performed By: #### 4 1000, , 22268 ####[facility] [place] [address], [place] Sodium [Moles/Vol] 137 mmol/L Normal 136-145 [facility] Comment on above: Order Comment: Bleed , altereed mental status Performed By: #### 4 1000, 00795, 44442 ####[facility] [place] [address], [facility] Urea nitrogen [Mass/Vol] 21 mg/dL Normal 7-25 [facility] Comment on above: Order Comment: Bleed , altereed mental status Performed By: #### 4 1000, 28735, 14564 ####[facility] [id number], [facility] CBC COMPLETE BLOOD COUNT04-13-2022 Erythrocyte distribution width (RBC) [Ratio] 20.4 % High 11.5-15.0 [facility] Comment on above: Order Comment: No: D o not add to previous draw Performed By: #### 8 7259 #### [facility] [address] [place] [address], [facility] Hematocrit (Bld) [Volume fraction] 29.2 % Low 36.0-45.0 [facility] Comment on above: Order Comment: No: D o not add to previous draw Performed By: #### 8 0429 #### [facility] [address] [place] [address], [place] Hemoglobin (Bld) [Mass/Vol] 9.0 g/dL Low 12.0-15.0 [facility] Comment on above: Order Comment: No: D o not add to previous draw Performed By: #### 8 2269 #### [facility] [address] [place] [address], [place] MCH (RBC) [Entitic mass] 31.0 pg Normal 27.0-33.0 [facility] Comment on above: Order Comment: No: D o not add to previous draw Performed By: #### 8 0022 #### [facility] [address] [place] [address], [facility] MCHC (RBC) [Mass/Vol] 30.8 g/dL Low 32.0-35.0 [facility] Comment on above: Order Comment: No: D o not add to previous draw Performed By: #### 8 5499 #### [facility] [address] [place] [id number], [facility] MCV (RBC) [Entitic vol] 100.7 fL High 82.0-98.0 [facility] Comment on above: Order Comment: No: D o not add to previous draw Performed By: #### 8 5499 #### [facility] [address] [facility] [place] [address], [facility] Nucleated RBC/100 WBC (Bld) [Ratio] 0 % Normal 0-0 [facility] Comment on above: Order Comment: No: D o not add to previous draw Performed By: #### 8 5499 #### [facility] [address] [place] [address], [facility] PLAT CNT 148 10*3/uL Low 150-400 The [facility] Comment on above: Order Comment: No: D o not add to previous draw Performed By: #### 8 5499 #### [facility] [address] [place] [address], [facility] RBC (Bld) [#/Vol] 2.90 10*6/uL Low 3.80-5.00 The [facility] Comment on above: Order Comment: No: D o not add to previous draw Performed By: #### 8 5499 #### [facility] [address] [place] [address], [facility] WBC (Bld) [#/Vol] 22.15 10*3/uL High 4.00-10.60 [facility] Comment on above: Order Comment: No: D o not add to previous draw Performed By: #### 8 5499 #### [facility] [address] [place] [address], [facility] MAGNESIUM BLOODon 04-13-2022 Magnesium [Mass/Vol] 1.7 mg/dL Low 1.9-2.7 [facility] Comment on above: Order Comment: Bleed , altereed mental status Performed By: #### 4 1000, 52228, 14667 ####[facility] [place] [address], [place] PHOSPHORUS BLOODon Phosphate [Mass/Vol] 4.7 mg/dL Normal 2.5-5.0 [facility] Comment on above: Order Comment: Bleed , altereed mental status Performed By: #### 4 1000, 65797, 14083 ####[facility] [facility] [address], [place] POC GLUCOSE LABon 04-13-2022 Glucose [Mass/Vol] 119 mg/dL High 70-100 The [facility] Comment on above: Performed By: #### 8 5499 #### [facility] [address] [place] [address], [place] Glucose [Mass/Vol] 116 mg/dL High 70-100 [facility] Comment on above: Performed By: #### 8 5499 #### [facility] [address] [place] [address], [place] Glucose [Mass/Vol] 129 mg/dL High 70-100 [facility] Comment on above: Performed By: #### 8 5499 #### [facility] [address] [place] [address], [place] Glucose [Mass/Vol] 109 mg/dL High 70-100 [facility] Comment on above: Performed By: #### 8 5499 ####[facility] [place] [address], [place] POTASSIUM BLOODon 04-13-2022 Potassium [Moles/Vol] 4.7 mmol/L Normal 3.5-5.1 [facility] Comment on above: Order Comment: No: D o not add to previous draw Performed By: #### 2 2706 #### [facility] [address] [place] [address], [facility] BASIC METABOLIC PANELon 05-2 Calcium [Mass/Vol] 8.5 mg/dL Low 8.6-10.3 [facility] Comment on above: Order Comment: Bleed , altereed mental status Performed By: #### 1 0070, , 46068 ####[facility] [place] [address], [facility] Chloride [Moles/Vol] 106 mmol/L Normal 98-107 [facility] Comment on above: Order Comment: Bleed , altereed mental status Performed By: #### 1 0, , 44753 ####[facility] [place] [address], [facility] CO2 [Moles/Vol] 24 mmol/L Normal 21-31 [facility] Comment on above: Order Comment: Bleed , altereed mental status Performed By: #### 1 0, 58325, 64922 ####[facility] [place] [address], [facility] Creatinine [Mass/Vol] 1.34 mg/dL High 0.60-1.20 [facility] Comment on above: Order Comment: Bleed , altereed mental status Performed By: #### 1 0, 93484, 77049 ####[facility] [place] [address], [facility] eGFR- 46 ml/min/1.73sq m Abnormal >60 [facility] Comment on above: Order Comment: Bleed , altereed mental status Result Comment: Calc ulation may not be valid for patients over 70 years Performed By: #### 1 0, 33685, 79692 ####[facility] [place] [address], [facility] eGFR- non- 38 ml/min/1.73sq m Abnormal >60 [facility] Comment on above: Order Comment: Bleed , altereed mental status Result Comment: Calc ulation may not be valid for patients over 70 years Performed By: #### 1 0070, 32454, 01110 ####[facility] [id number], [facility] Glucose [Mass/Vol] 83 mg/dL Normal 70-100 [facility] Comment on above: Order Comment: Bleed , altereed mental status Performed By: #### 1 0070, 53999, 25133 ####[facility] [facility] [place] [address], [facility] Potassium [Moles/Vol] 4.5 mmol/L Normal 3.5-5.1 [facility] Comment on above: Order Comment: Bleed , altereed mental status Performed By: #### 1 0, 34166, 36923 ####[facility] [place] [address], [facility] Sodium [Moles/Vol] 137 mmol/L Normal 136-145 [facility] Comment on above: Order Comment: Bleed , altereed mental status Performed By: #### 1 0, 56243, 62560 ####[facility] [facility] [place] [address], [facility] Urea nitrogen [Mass/Vol] 25 mg/dL Normal 7-25 [facility] Comment on above: Order Comment: Bleed , altereed mental status Performed By: #### 1 0070, 29796, 73842 ####[facility] [facility] [place] [address], [facility] CBC COMPLETE BLOOD COUNTon 0 - Erythrocyte distribution width (RBC) [Ratio] 19.9 % High 11.5-15.0 [facility] Comment on above: Order Comment: No: D o not add to previous draw Performed By: #### 8 5499 #### [facility] [address] [place] [address], [facility] Hematocrit (Bld) [Volume fraction] 28.9 % Low 36.0-45.0 [facility] Comment on above: Order Comment: No: D o not add to previous draw Performed By: #### 8 5499 #### [facility] [address] [place] [address], [facility] Hemoglobin (Bld) [Mass/Vol] 8.7 g/dL Low 12.0-15.0 [facility] Comment on above: Order Comment: No: D o not add to previous draw Performed By: #### 8 5499 #### [facility] [address] MCH (RBC) [Entitic mass] 30.1 pg Normal 27.0-33.0 [facility] Comment on above: Order Comment: No: D o not add to previous draw Performed By: #### 8 5499 #### [facility] [address] [facility] [place] [address], [facility] MCHC (RBC) [Mass/Vol] 30.1 g/dL Low 32.0-35.0 [facility] Comment on above: Order Comment: No: D o not add to previous draw Performed By: #### 8 5499 #### [facility] [address] [facility] [place] [address], [facility] MCV (RBC) [Entitic vol] 100.0 fL High 82.0-98.0 [facility] Comment on above: Order Comment: No: D o not add to previous draw Performed By: #### 8 5499 #### [facility] [address] [place] [address], [facility] Nucleated RBC/100 WBC (Bld) [Ratio] 0 % Normal 0-0 [facility] Comment on above: Order Comment: No: D o not add to previous draw Performed By: #### 8 5499 #### [facility] [address] [place] [address], [facility] PLAT CNT 186 10*3/uL Normal 150-400 The [facility] Comment on above: Order Comment: No: D o not add to previous draw Performed By: #### 8 5499 #### [facility] [address] [place] [address], [facility] RBC (Bld) [#/Vol] 2.89 10*6/uL Low 3.80-5.00 [facility] Comment on above: Order Comment: No: D o not add to previous draw Performed By: #### 8 5499 #### [facility] [address] [place] [address], [facility] WBC (Bld) [#/Vol] 21.99 10*3/uL High 4.00-10.60 [facility] Comment on above: Order Comment: No: D o not add to previous draw Performed By: #### 8 5499 #### [facility] [address] [place] [id number], [facility] LIVER BATTERYon 04-12-2022 Albumin [Mass/Vol] 3.0 g/dL Low 3.5-5.7 [facility] Comment on above: Order Comment: Bleed , altereed mental status Performed By: #### 1 0, 50185, 27125 ####[facility] [place] [address], [facility] ALKALINE PHOSPH 87 IU/L Normal 34-104 [facility] Comment on above: Order Comment: Bleed , altereed mental status Performed By: #### 1 0, 96562, 15437 ####[facility] [id number], [facility] ALT [Catalytic activity/Vol] 7 U/L Normal 7-52 [facility] Comment on above: Order Comment: Bleed , altereed mental status Performed By: #### 1 0070, 88198, 62531 ####[facility] AST [Catalytic activity/Vol] 11 U/L Low 13-39 [facility] Comment on above: Order Comment: Bleed , altereed mental status Performed By: #### 1 0070, 36367, 89831 ####[facility] [place] [address], [facility] Bilirubin [Mass/Vol] 0.8 mg/dL Normal 0.3-1.0 [facility] Comment on above: Order Comment: Bleed , altereed mental status Performed By: #### 1 0070, 76181, 25866 ####[facility] Bilirubin.direct [Mass/Vol] 0.2 mg/dL Normal 0.0-0.2 [facility] Comment on above: Order Comment: Bleed , altereed mental status Performed By: #### 1 0, 21348, 98742 ####[facility] [place] [address], [facility] Protein [Mass/Vol] 6.0 g/dL Normal 6.0-8.3 [facility] Comment on above: Order Comment: Bleed , altereed mental status Performed By: #### 1 0, 44246, 24790 ####[facility] [place] [address], [facility] MAGNESIUM BLOODon 04-12-2022 Magnesium [Mass/Vol] 1.9 mg/dL Normal 1.9-2.7 [facility] Comment on above: Order Comment: Bleed , altereed mental status Performed By: #### 1 0070, 37462, 16576 ####[facility] [place] [address], [facility] Operative Reporton Operative Report MR#: [id number] # [facility] Pt. Name: María Elena Tafoya Room #: CCCI Discharge Date: Birthdate: 1940 OPERATIVE REPORT DATE OF SURGERY: 04/12/2022 SURGEON: Sharla Lizama MD Operative report: Laparoscopic cholecystectomy Location: [facility] main or Preoperative diagnosis: Gallstone pancreatitis Postoperative diagnosis: Gallstone pancreatitis Operation performed: Laparoscopic cholecystectomy Surgeon: Sharla Lizama MD Truck Body Builder: Dillon Thomas MD (resident pgy5) Estimated blood [...] Lizama MD Date Trans: 04/12/2022 05:18 P/ [id number] cc: Bennie Albright M.D. [address] [facility] [address] Normal The [facility] Operative Report MR#: [id number] I [facility] Pt. Name: María Elena Tafoya Room #: [id number] Discharge Date: Birthdate: 1940 OPERATIVE REPORT DATE OF SURGERY: 04/12/2022 SURGEON: Sharla Lizama MD Operative report: Laparoscopic cholecystectomy Location: [facility] main or Preoperative diagnosis: Gallstone pancreatitis Postoperative diagnosis: Gallstone pancreatitis Operation performed: Laparoscopic cholecystectomy Surgeon: Sharla Lizama MD Truck Body Builder: Dillon Thomas MD (resident pgy5) Estimated blood [...] Lizama MD Date Trans: 04/12/2022 05:18 P/ [id number] cc: Bennie Albright M.D. [address] [facility] [id number] Normal [facility] POC GLUCOSE LABon 04-12-2022 Glucose [Mass/Vol] 122 mg/dL High 70-100 [facility] Comment on above: Performed By: #### 8 [id number] #### [facility] [address] [place] [address], [facility] Glucose [Mass/Vol] 167 mg/dL High 70-100 [facility] Comment on above: Performed By: #### 8 [id number] ####[facility] [place] [address], [facility] Glucose [Mass/Vol] 105 mg/dL High 70-100 [facility] Comment on above: Performed By: #### 3 0313 #### [facility] [address] [facility] [place] [address], [facility] Glucose [Mass/Vol] 111 mg/dL High 70-100 [facility] Comment on above: Performed By: #### 8 [id number] ####[facility] [facility] [place] [address], [facility] Glucose [Mass/Vol] 109 mg/dL High 70-100 [facility] Comment on above: Performed By: #### 3 0313 #### [facility] [address] POC SARS COV2 IDon 2 SARS-CoV-2 (COVID-19) RNA MATTHEW+probe Ql (Unsp spec) Negative Normal NEGATIVE [facility] Comment on above: Result Comment: ID N [...] Accreditation. Performed By: #### 8 [id number] #### [facility] [address] [place] [address], [facility] BASIC METABOLIC PANELon 05-2 Calcium [Mass/Vol] 8.3 mg/dL Low 8.6-10.3 [facility] Comment on above: Order Comment: No: D o not add to previous draw Performed By: #### 8 [id number] #### [facility] [address] [place] [address], [place] Chloride [Moles/Vol] 106 mmol/L Normal 98-107 [facility] Comment on above: Order Comment: No: D o not add to previous draw Performed By: #### 8 [id number] #### [facility] [address] [place] [address], [place] CO2 [Moles/Vol] 23 mmol/L Normal 21-31 [facility] Comment on above: Order Comment: No: D o not add to previous draw Performed By: #### 8 [id number] #### [facility] [address] [place] [address], [facility] Creatinine [Mass/Vol] 1.21 mg/dL High 0.60-1.20 [facility] Comment on above: Order Comment: No: D o not add to previous draw Performed By: #### 8 [id number] #### [facility] [address] [place] [address], [facility] eGFR- 51 ml/min/1.73sq m Abnormal >60 [facility] Comment on above: Order Comment: No: D o not add to previous draw Result Comment: Calc ulation may not be valid for patients over 70 years Performed By: #### 8 [id number] #### [facility] [address] [place] [id number], [facility] eGFR- non- 42 ml/min/1.73sq m Abnormal >60 [facility] Comment on above: Order Comment: No: D o not add to previous draw Result Comment: Calc ulation may not be valid for patients over 70 years Performed By: #### 8 [id number] #### [facility] [address] [place] [address], [place] Glucose [Mass/Vol] 91 mg/dL Normal 70-100 [facility] Comment on above: Order Comment: No: D o not add to previous draw Performed By: #### 8 [id number] #### [facility] [address] [place] [address], [facility] Potassium [Moles/Vol] 4.5 mmol/L Normal 3.5-5.1 [facility] Comment on above: Order Comment: No: D o not add to previous draw Performed By: #### 8 [id number] #### [facility] [address] [place] [address], [place] Sodium [Moles/Vol] 138 mmol/L Normal 136-145 [facility] Comment on above: Order Comment: No: D o not add to previous draw Performed By: #### 8 [id number] #### [facility] [address] [place] [address], [facility] Urea nitrogen [Mass/Vol] 22 mg/dL Normal 7-25 [facility] Comment on above: Order Comment: No: D o not add to previous draw Performed By: #### 8 [id number] #### [facility] [address] [place] [address], [facility] CBC COMPLETE BLOOD COUNTon 0 04-11-2022 Erythrocyte distribution width (RBC) [Ratio] 19.6 % High 11.5-15.0 [facility] Comment on above: Order Comment: No: D o not add to previous draw Performed By: #### 5 0608 #### [facility] [address] [place] [address], [place] Hematocrit (Bld) [Volume fraction] 29.5 % Low 36.0-45.0 [facility] Comment on above: Order Comment: No: D o not add to previous draw Performed By: #### 5 0608 #### [facility] [address] [place] [address], [facility] Hemoglobin (Bld) [Mass/Vol] 9.2 g/dL Low 12.0-15.0 [facility] Comment on above: Order Comment: No: D o not add to previous draw Performed By: #### 5 0608 #### [facility] [address] [place] [address], [facility] MCH (RBC) [Entitic mass] 31.0 pg Normal 27.0-33.0 [facility] Comment on above: Order Comment: No: D o not add to previous draw Performed By: #### 5 0608 #### [facility] [address] [place] [address], [facility] MCHC (RBC) [Mass/Vol] 31.2 g/dL Low 32.0-35.0 [facility] Comment on above: Order Comment: No: D o not add to previous draw Performed By: #### 5 0608 #### [facility] [address] [facility] [place] [address], [facility] MCV (RBC) [Entitic vol] 99.3 fL High 82.0-98.0 [facility] Comment on above: Order Comment: No: D o not add to previous draw Performed By: #### 5 0608 #### [facility] [address] [facility]. [address] Nucleated RBC/100 WBC (Bld) [Ratio] 0 % Normal 0-0 [facility] Comment on above: Order Comment: No: D o not add to previous draw Performed By: #### 5 0608 #### [facility] [address] [facility] [place] [address], [facility] PLAT CNT 277 10*3/uL Normal 150-400 [facility] Comment on above: Order Comment: No: D o not add to previous draw Performed By: #### 5 0608 #### [facility] [address] [place] [address], [facility] RBC (Bld) [#/Vol] 2.97 10*6/uL Low 3.80-5.00 [facility] Comment on above: Order Comment: No: D o not add to previous draw Performed By: #### 5 0608 #### [facility] [address] [place] [address], [facility] WBC (Bld) [#/Vol] 20.81 10*3/uL High 4.00-10.60 [facility] Comment on above: Order Comment: No: D o not add to previous draw Performed By: #### 5 0608 #### [facility] [address] [place] [id number], [facility] LIVER BATTERYon 04-11-2022 Albumin [Mass/Vol] 3.1 g/dL Low 3.5-5.7 [facility] Comment on above: Order Comment: No: D o not add to previous draw Performed By: #### 8 [id number] #### [facility] [address] [place] [id number], [facility] ALKALINE PHOSPH 92 IU/L Normal 34-104 [facility] Comment on above: Order Comment: No: D o not add to previous draw Performed By: #### 8 [id number] #### [facility] [address] [place] [address], [facility] ALT [Catalytic activity/Vol] 7 U/L Normal 7-52 [facility] Comment on above: Order Comment: No: D o not add to previous draw Performed By: #### 8 [id number] #### [facility] [address] [place] [id number], [facility] AST [Catalytic activity/Vol] 9 U/L Low 13-39 [facility] Comment on above: Order Comment: No: D o not add to previous draw Performed By: #### 8 [id number] #### [facility] [address] [place] [address], [place] Bilirubin [Mass/Vol] 0.8 mg/dL Normal 0.3-1.0 [facility] Comment on above: Order Comment: No: D o not add to previous draw Performed By: #### 8 [id number] #### [facility] [address] [place] [address], [place] Bilirubin.direct [Mass/Vol] 0.3 mg/dL High 0.0-0.2 [facility] Comment on above: Order Comment: No: D o not add to previous draw Performed By: #### 8 [id number] #### [facility] [address] [place] [address], [place] Protein [Mass/Vol] 5.7 g/dL Low 6.0-8.3 [facility] Comment on above: Order Comment: No: D o not add to previous draw Performed By: #### 8 [id number] #### [facility] [address] [place] [address], [place] MAGNESIUM BLOODon 04-11-2022 Magnesium [Mass/Vol] 1.7 mg/dL Low 1.9-2.7 [facility] Comment on above: Order Comment: No: D o not add to previous draw Performed By: #### 8 [id number] #### [facility] [address] [place] [address], [place] POC GLUCOSE LABon 04-11-2022 Glucose [Mass/Vol] 143 mg/dL High 70-100 [facility] Comment on above: Performed By: #### 8 [id number] #### [facility] [address] [place] [address], [place] Glucose [Mass/Vol] 142 mg/dL High 70-100 [facility] Comment on above: Performed By: #### 8 [id number] ####[facility] [place] [address], [facility] Glucose [Mass/Vol] 125 mg/dL High 70-100 [facility] Comment on above: Performed By: #### 8 [id number] #### [facility] [address] [place] [address], [place] Glucose [Mass/Vol] 113 mg/dL High 70-100 [facility] Comment on above: Performed By: #### 3 0313 #### [facility] [address] [place] [address], [place] URINE SMITH STAIN/EOSon EOSINOPHIL SMEAR NONE SEEN Normal NSN [facility] Comment on above: Order Comment: No: D o not add to previous draw [place] Normal [facility] Comment on above: Order Comment: No: D o not add to previous draw Result Comment: Test Performed by [employer] [address] [place] [id number] - Released 04/11/2022 22:02 BASIC METABOLIC PANELon 05-2 Calcium [Mass/Vol] 8.3 mg/dL Low 8.6-10.3 [facility] Comment on above: Order Comment: No: D o not add to previous draw Performed By: #### 8 [id number] #### [facility] [address] [place] [address], [place] Chloride [Moles/Vol] 107 mmol/L Normal 98-107 [facility] Comment on above: Order Comment: No: D o not add to previous draw Performed By: #### 8 [id number] #### [facility] [address] [place] [address], [place] CO2 [Moles/Vol] 23 mmol/L Normal 21-31 [facility] Comment on above: Order Comment: No: D o not add to previous draw Performed By: #### 8 [id number] #### [facility] [address] [place] [address], [place] Creatinine [Mass/Vol] 1.40 mg/dL High 0.60-1.20 [facility] Comment on above: Order Comment: No: D o not add to previous draw Performed By: #### 8 [id number] #### [facility] [address] [place] [address], [facility] eGFR- 44 ml/min/1.73sq m Abnormal >60 [facility] Comment on above: Order Comment: No: D o not add to previous draw Result Comment: Calc ulation may not be valid for patients over 70 years Performed By: #### 8 [id number] #### [facility] [address] [place] [address], [facility] eGFR- non- 36 ml/min/1.73sq m Abnormal >60 [facility] Comment on above: Order Comment: No: D o not add to previous draw Result Comment: Calc ulation may not be valid for patients over 70 years Performed By: #### 8 [id number] #### [facility] [address] [place] [address], [place] Glucose [Mass/Vol] 101 mg/dL High 70-100 [facility] Comment on above: Order Comment: No: D o not add to previous draw Performed By: #### 8 5499 #### [facility] [address] [place] [address], [place] Potassium [Moles/Vol] 4.1 mmol/L Normal 3.5-5.1 [facility] Comment on above: Order Comment: No: D o not add to previous draw Performed By: #### 8 [id number] #### [facility] [address] [place] [address], [place] Sodium [Moles/Vol] 138 mmol/L Normal 136-145 [facility] Comment on above: Order Comment: No: D o not add to previous draw Performed By: #### 8 [id number] #### [facility] [address] [place] [address], [place] Urea nitrogen [Mass/Vol] 25 mg/dL Normal 7-25 [facility] Comment on above: Order Comment: No: D o not add to previous draw Performed By: #### 8 [id number] #### [facility] [address] [facility] [address] CBC COMPLETE BLOOD COUNTon 0 - Erythrocyte distribution width (RBC) [Ratio] 19.9 % High 11.5-15.0 [facility] Comment on above: Order Comment: No: D o not add to previous draw Performed By: #### 5 0608 #### [facility] [address] Hematocrit (Bld) [Volume fraction] 29.1 % Low 36.0-45.0 [facility] Comment on above: Order Comment: No: D o not add to previous draw Performed By: #### 5 0608 #### [facility] [address] [facility] [address] Hemoglobin (Bld) [Mass/Vol] 9.1 g/dL Low 12.0-15.0 [facility] Comment on above: Order Comment: No: D o not add to previous draw Performed By: #### 5 0608 #### [facility] [address] [facility] [place] [address], [facility] MCH (RBC) [Entitic mass] 30.6 pg Normal 27.0-33.0 [facility] Comment on above: Order Comment: No: D o not add to previous draw Performed By: #### 5 0608 #### [facility] [address] [facility] [place] [address], [facility] MCHC (RBC) [Mass/Vol] 31.3 g/dL Low 32.0-35.0 [facility] Comment on above: Order Comment: No: D o not add to previous draw Performed By: #### 5 0608 #### [facility] [address] [place] [address], [facility] MCV (RBC) [Entitic vol] 98.0 fL Normal 82.0-98.0 [facility] Comment on above: Order Comment: No: D o not add to previous draw Performed By: #### 5 0608 #### [facility] [address] [facility] [place] [address], [facility] Nucleated RBC/100 WBC (Bld) [Ratio] 0 % Normal 0-0 [facility] Comment on above: Order Comment: No: D o not add to previous draw Performed By: #### 5 0608 #### [facility] [address] [place] [address], [facility] PLAT CNT 281 10*3/uL Normal 150-400 [facility] Comment on above: Order Comment: No: D o not add to previous draw Performed By: #### 5 0608 #### [facility] [address] [place] [address], [facility] RBC (Bld) [#/Vol] 2.97 10*6/uL Low 3.80-5.00 [facility] Comment on above: Order Comment: No: D o not add to previous draw Performed By: #### 5 0608 #### [facility] [address] [facility] [place] [address], [facility] WBC (Bld) [#/Vol] 19.64 10*3/uL High 4.00-10.60 [facility] Comment on above: Order Comment: No: D o not add to previous draw Performed By: #### 5 0608 #### [facility] [address] [facility] [place] [address], [facility] MAGNESIUM BLOODon 04-10-2022 Magnesium [Mass/Vol] 1.6 mg/dL Low 1.9-2.7 [facility] Comment on above: Order Comment: No: D o not add to previous draw Performed By: #### 8 [id number] #### [facility] [address] [place] [address], [place] POC GLUCOSE LABon 04-10-2022 Glucose [Mass/Vol] 154 mg/dL High 70-100 [facility] Comment on above: Performed By: #### 8 [id number] #### [facility] [address] [place] [address], [place] Glucose [Mass/Vol] 120 mg/dL High 70-100 [facility] Comment on above: Performed By: #### 3 0313 #### [facility] [address] [place] [address], [place] Glucose [Mass/Vol] 131 mg/dL High 70-100 [facility] Comment on above: Performed By: #### 8 [id number] ####[facility] [place] [address], [place] Glucose [Mass/Vol] 114 mg/dL High 70-100 [facility] Comment on above: Performed By: #### 8 [id number] #### [facility] [address] [place] [address], [place] BASIC METABOLIC PANELon 05 Calcium [Mass/Vol] 8.7 mg/dL Normal 8.6-10.3 [facility] Comment on above: Order Comment: No: D o not add to previous draw Performed By: #### 8 [id number] #### [facility] [address] [place] [address], [place] Chloride [Moles/Vol] 104 mmol/L Normal 98-107 [facility] Comment on above: Order Comment: No: D o not add to previous draw Performed By: #### 8 [id number] #### [facility] [address] [place] [address], [place] CO2 [Moles/Vol] 24 mmol/L Normal 21-31 [facility] Comment on above: Order Comment: No: D o not add to previous draw Performed By: #### 8 [id number] #### [facility] [address] [place] [address], [place] Creatinine [Mass/Vol] 1.29 mg/dL High 0.60-1.20 [facility] Comment on above: Order Comment: No: D o not add to previous draw Performed By: #### 8 [id number] #### [facility] [address] [place] [address], [facility] eGFR- 48 ml/min/1.73sq m Abnormal >60 [facility] Comment on above: Order Comment: No: D o not add to previous draw Result Comment: Calc ulation may not be valid for patients over 70 years Performed By: #### 8 [id number] #### [facility] [address] [place] [address], [facility] eGFR- non- 39 ml/min/1.73sq m Abnormal >60 [facility] Comment on above: Order Comment: No: D o not add to previous draw Result Comment: Calc ulation may not be valid for patients over 70 years Performed By: #### 8 [id number] #### [facility] [address] [place] [address], [place] Glucose [Mass/Vol] 90 mg/dL Normal 70-100 [facility] Comment on above: Order Comment: No: D o not add to previous draw Performed By: #### 8 [id number] #### [facility] [address] [place] [address], [place] Potassium [Moles/Vol] 4.3 mmol/L Normal 3.5-5.1 [facility] Comment on above: Order Comment: No: D o not add to previous draw Performed By: #### 8 [id number] #### [facility] [address] [place] [address], [place] Sodium [Moles/Vol] 137 mmol/L Normal 136-145 [facility] Comment on above: Order Comment: No: D o not add to previous draw Performed By: #### 8 [id number] #### [facility] [address] [place] [address], [facility] Urea nitrogen [Mass/Vol] 16 mg/dL Normal 7-25 [facility] Comment on above: Order Comment: No: D o not add to previous draw Performed By: #### 8 [id number] #### [facility] [address] [place] [address], [facility] CBC COMPLETE BLOOD COUNTon 0 - Erythrocyte distribution width (RBC) [Ratio] 19.4 % High 11.5-15.0 [facility] Comment on above: Order Comment: No: D o not add to previous draw Performed By: #### 8 [id number] #### [facility] [address] [place] [address], [facility] Hematocrit (Bld) [Volume fraction] 29.9 % Low 36.0-45.0 [facility] Comment on above: Order Comment: No: D o not add to previous draw Performed By: #### 8 [id number] #### [facility] [address] [place] [id number], [facility] Hemoglobin (Bld) [Mass/Vol] 9.4 g/dL Low 12.0-15.0 [facility] Comment on above: Order Comment: No: D o not add to previous draw Performed By: #### 8 [id number] #### [facility] [address] [place] [address], [facility] MCH (RBC) [Entitic mass] 30.4 pg Normal 27.0-33.0 [facility] Comment on above: Order Comment: No: D o not add to previous draw Performed By: #### 8 [id number] #### [facility] [address] [place] [address], [place] MCHC (RBC) [Mass/Vol] 31.4 g/dL Low 32.0-35.0 [facility] Comment on above: Order Comment: No: D o not add to previous draw Performed By: #### 8 [id number] #### [facility] [address] [place] [address], [facility] MCV (RBC) [Entitic vol] 96.8 fL Normal 82.0-98.0 [facility] Comment on above: Order Comment: No: D o not add to previous draw Performed By: #### 8 [id number] #### [facility] [address] [place] [address], [facility] Nucleated RBC/100 WBC (Bld) [Ratio] 0 % Normal 0-0 [facility] Comment on above: Order Comment: No: D o not add to previous draw Performed By: #### 8 [id number] #### [facility] [address] [place] [id number], [facility] PLAT CNT 325 10*3/uL Normal 150-400 [facility] Comment on above: Order Comment: No: D o not add to previous draw Performed By: #### 8 [id number] #### [facility] [address] [facility] [place] [address], [facility] RBC (Bld) [#/Vol] 3.09 10*6/uL Low 3.80-5.00 The [facility] Comment on above: Order Comment: No: D o not add to previous draw Performed By: #### 8 [id number] #### [facility] [address] [place] [id number], [place] WBC (Bld) [#/Vol] 21.91 10*3/uL High 4.00-10.60 [facility] Comment on above: Order Comment: No: D o not add to previous draw Performed By: #### 8 [id number] #### [facility] [address] [place] [address], [place] CREATININE URINE RANDOMon Creatinine (U) [Mass/Vol] 40.0 mg/dL Normal The [facility] [place] [facility] Comment on above: Order Comment: The A ptima SARS-CoV-2 assay is a nucleic acid amplification test intended for the qualitative detection of RNA from SARS-CoV-2 isolated and purified from nasopharyngeal (CONSTRUCTION LABORER),oropharyngeal (OP), nasal swab, sputum, and bronchoalveolar lavage (BAL) specimens from patients with signs and symptoms of infection who are suspected of COVID-19. Results are for the identification of SARS-CoV-2 RNA. The SARS-CoV-2 RNA is generally detectable during the acute phase of infection. The Aptima SARS-CoV-2 Assay on the [email or web address] Fusion system is intended for use by laboratory personnel specifically instructed and trained in the operation of the [place] [employer] system. The Aptima SARS-CoV-2 assay is [...] specimens Performed By: #### 3 [id number] #### [facility] [address] [place] [address], [facility] MAGNESIUM BLOODon 04-09-2022 Magnesium [Mass/Vol] 1.9 mg/dL Normal 1.9-2.7 [facility] Comment on above: Order Comment: No: D o not add to previous draw Performed By: #### 8 [id number] #### [facility] [address] [place] [address], [facility] OSMOLALITY URINEon OSMOLALITY 317 mOsm/kg Normal 50-1400 [facility] Comment on above: Order Comment: The A ptima SARS-CoV-2 assay is a nucleic acid amplification test intended for the qualitative detection of RNA from SARS-CoV-2 isolated and purified from nasopharyngeal (CONSTRUCTION LABORER),oropharyngeal (OP), nasal swab, sputum, and bronchoalveolar lavage (BAL) specimens from patients with signs and symptoms of infection who are suspected of COVID-19. Results are for the identification of SARS-CoV-2 RNA. The SARS-CoV-2 RNA is generally detectable during the acute phase of infection. The [employer]ima SARS-CoV-2 Assay on the [place] [employer] system is intended for use by laboratory personnel specifically instructed and trained in the operation of the [place] [employer] system. The [employer] SARS-CoV-2 assay is [...] information. Performed By: #### 3 1792 #### [facility] [address] POC GLUCOSE LABon 04-09-2022 Glucose [Mass/Vol] 159 mg/dL High 70-100 [facility] Comment on above: Performed By: #### 8 [id number] #### [facility] [address] [facility] [place] [address], [facility] Glucose [Mass/Vol] 141 mg/dL High 70-100 [facility] Comment on above: Performed By: #### 8 [id number] #### [facility] [address] [facility] [place] [address], [facility] Glucose [Mass/Vol] 337 mg/dL High 70-100 [facility] Comment on above: Performed By: #### 8 [id number] #### [facility] [address] [facility] [place] [address], [facility] Glucose [Mass/Vol] 113 mg/dL High 70-100 [facility] Comment on above: Order Comment: NOTE: Result Checked Performed By: #### 3 0313 #### [facility] SODIUM URINE RANDOMon 2021 Sodium (U) [Moles/Vol] 105 mmol/L Normal [facility] Comment on above: Order Comment: The A ptima SARS-CoV-2 assay is a nucleic acid amplification test intended for the qualitative detection of RNA from SARS-CoV-2 isolated and purified from nasopharyngeal (CONSTRUCTION LABORER),oropharyngeal (OP), nasal swab, sputum, and bronchoalveolar lavage (BAL) specimens from patients with signs and symptoms of infection who are suspected of COVID-19. Results are for the identification of SARS-CoV-2 RNA. The SARS-CoV-2 RNA is generally detectable during the acute phase of infection. The Aptima SARS-CoV-2 Assay on the [employer] and [employer] Fusion system is intended for use by laboratory personnel specifically instructed and trained in the operation of the [place] [employer] [place] Fusion system. The Aptima SARS-CoV-2 assay is [...] specimens Performed By: #### 3 1792 #### [address] UA,MICROSCOPIC REQUIREDon Appearance (U) CLEAR Normal CLEAR The [facility] Comment on above: Order Comment: No: D o not add to previous draw Performed By: #### 8 5499 #### [place] [address], [facility] Bilirubin Ql (U) Negative Normal NEGATIVE [facility] Comment on above: Order Comment: No: D o not add to previous draw Performed By: #### 8 5499 #### [address] [place] [address], [place] BUDDING YEAST FEW Abnormal NONE SEEN The [facility] Comment on above: Order Comment: No: D o not add to previous draw Performed By: #### 8 5499 #### [facility] [address] [place] [address], [place] Color (U) YELLOW Normal YELLOW [facility] Comment on above: Order Comment: No: D o not add to previous draw Performed By: #### 8 5499 #### [facility] [address] [place] [address], [place] EPIS NONE SEEN Normal FEW,OCC,NONE SEEN [facility] Comment on above: Order Comment: No: D o not add to previous draw Performed By: #### 8 5499 #### [facility] [address] [place] [address], [place] Glucose Ql (U) Negative Normal NEGATIVE The [facility] Comment on above: Order Comment: No: D o not add to previous draw Performed By: #### 8 5499 #### [facility] [address] [place] [address], [place] Hemoglobin Ql (U) SMALL Abnormal NEGATIVE The [facility] Comment on above: Order Comment: No: D o not add to previous draw Performed By: #### 8 5499 #### [facility] [address] [place] [address], [place] KETONE Negative Normal NEGATIVE The [facility] Comment on above: Order Comment: No: D o not add to previous draw Performed By: #### 8 5499 #### [facility] [address] [place] [address], [place] LEUK LUIS ANTONIO Negative Normal NEGATIVE [facility] Comment on above: Order Comment: No: D o not add to previous draw Performed By: #### 8 5499 #### [facility] [address] [place] [address], [place] Nitrite Ql (U) Negative Normal NEGATIVE The [facility] Comment on above: Order Comment: No: D o not add to previous draw Performed By: #### 8 5499 #### [facility] [address] [facility]. [address] pH (U) 7.0 [pH] Normal 5.0-8.0 [facility] Comment on above: Order Comment: No: D o not add to previous draw Performed By: #### 8 5499 #### [facility] [address] [facility]. [address] Protein Ql (U) Negative Normal NEGATIVE The [facility] Comment on above: Order Comment: No: D o not add to previous draw Performed By: #### 8 5499 #### [facility] [address] [facility]. [address] RBC 0-2 Abnormal NONE SEEN [facility] Comment on above: Order Comment: No: D o not add to previous draw Performed By: #### 8 5499 #### [facility] [address] [facility]. [address] SPEC GRAV 1.008 Low 1.015-1.020 The [facility] Comment on above: Order Comment: No: D o not add to previous draw Performed By: #### 8 5499 #### [facility] [address] [facility] [place] [address], [facility] WBC UA NONE SEEN Normal NONE SEEN The [facility] Comment on above: Order Comment: No: D o not add to previous draw Performed By: #### 8 5499 #### [facility] [address] *BLOOD CULTUREon 04-08-2022 *BLOOD CULTURE Clinical Report: (D) Specimen: BLOOD CULTURE Collected: 04/08/2022 18:50 Status: Final Last Updated: 04/14/2022 06:21 CULT RES (Final) No Growth Day 5 Normal [facility] Comment on above: Performed By: #### 3 0313 #### [facility] [address] [place] [address], [facility] *BLOOD CULTURE Clinical Report: (D) Specimen: BLOOD CULTURE Collected: 04/08/2022 15:33 Status: Final Last Updated: 04/14/2022 06:21 (1) Per denisha Fernandez.labs to be drawn at three CULT RES (Final) No Growth Day 5 Normal [facility] Comment on above: Order Comment: No: D o not add to previous draw Performed By: #### 5 0608 #### [facility] [address] [place] [address], [facility] BASIC METABOLIC PANELon 03-19 Calcium [Mass/Vol] 8.9 mg/dL Normal 8.6-10.3 [facility] Comment on above: Order Comment: No: D o not add to previous draw Performed By: #### 2 2706 #### [facility] [address] [place] [address], [place] Chloride [Moles/Vol] 105 mmol/L Normal 98-107 [facility] Comment on above: Order Comment: No: D o not add to previous draw Performed By: #### 2 2706 #### [facility] [address] [place] [address], [place] CO2 [Moles/Vol] 24 mmol/L Normal 21-31 [facility] Comment on above: Order Comment: No: D o not add to previous draw Performed By: #### 2 2706 #### [facility] [address] [place] [address], [place] Creatinine [Mass/Vol] 1.03 mg/dL Normal 0.60-1.20 [facility] Comment on above: Order Comment: No: D o not add to previous draw Performed By: #### 2 2706 #### [facility] [address] [place] [address], [place] eGFR- non- 51 ml/min/1.73sq m Abnormal >60 The [facility] Comment on above: Order Comment: No: D o not add to previous draw Result Comment: Calc ulation may not be valid for patients over 70 years Performed By: #### 2 2706 #### [facility] [address] [place] [address], [place] GFR/1.73 sq M.predicted among blacks MDRD (S/P/Bld) [Vol rate/Area] mL/min/{1.73_m2} Normal >60 [facility] Comment on above: Order Comment: No: D o not add to previous draw Result Comment: Calc ulation may not be valid for patients over 70 years Performed By: #### 2 2706 #### [facility] [address] [place] [address], [place] Glucose [Mass/Vol] 113 mg/dL High 70-100 [facility] Comment on above: Order Comment: No: D o not add to previous draw Performed By: #### 2 2706 #### [facility] [address] [place] [address], [place] Potassium [Moles/Vol] 4.1 mmol/L Normal 3.5-5.1 [facility] Comment on above: Order Comment: No: D o not add to previous draw Performed By: #### 2 2706 #### [facility] [address] [place] [address], [place] Sodium [Moles/Vol] 136 mmol/L Normal 136-145 [facility] Comment on above: Order Comment: No: D o not add to previous draw Performed By: #### 2 2706 #### [facility] [address] [place] [address], [place] Urea nitrogen [Mass/Vol] 11 mg/dL Normal 7-25 [facility] Comment on above: Order Comment: No: D o not add to previous draw Performed By: #### 2 2706 #### [facility] 3000 [facility]. [address] CBC W/DIFFon 04-08-2022 ABS IMM GRANS 0.4 10*3/uL High 0.0-0.2 [facility] Comment on above: Performed By: #### 8 5499 #### [facility] [address] [facility] [place] [address], [facility] ABS NEUTROPHILS 24.5 10*3/uL High 1.6-7.6 The [facility] Comment on above: Performed By: #### 8 5499 #### [facility] [address] [facility] [place] [address], [facility] ANISO Moderate Normal [facility] Comment on above: Performed By: #### 8 5499 #### [facility] [address] [facility]. [address] Basophils (Bld) [#/Vol] 0.2 10*3/uL Normal 0.0-0.2 [facility] Comment on above: Performed By: #### 8 5499 #### [facility] [address] [facility] [place] [address], [facility] Basophils/100 WBC (Bld) 0.6 % Normal 0.0-1.0 [facility] Comment on above: Performed By: #### 8 5499 #### [facility] [address] [facility] [place] [address], [facility] Eosinophils (Bld) [#/Vol] 0.0 10*3/uL Normal 0.0-0.5 [facility] Comment on above: Performed By: #### 8 5499 #### [facility] [address] [facility] [place] [address], [facility] Eosinophils/100 WBC (Bld) 0.1 % Normal 0.0-6.0 [facility] Comment on above: Performed By: #### 8 5499 #### [facility] [address] [facility]. [address] Erythrocyte distribution width (RBC) [Ratio] 19.1 % High 11.5-15.0 [facility] Comment on above: Performed By: #### 8 5499 #### [facility] [address] [facility] [place] [address], [facility] Hematocrit (Bld) [Volume fraction] 32.3 % Low 36.0-45.0 [facility] Comment on above: Performed By: #### 8 5499 #### [facility] [address] [facility] [place] [address], [facility] Hemoglobin (Bld) [Mass/Vol] 10.1 g/dL Low 12.0-15.0 [facility] Comment on above: Performed By: #### 8 5499 #### [facility] [address] [place] [address], [facility] IMMATURE GRANS 1.5 % High 0.0-1.0 The [facility] Comment on above: Performed By: #### 8 5499 #### [facility] [address] [facility] [place] [address], [facility] Lymphocytes (Bld) [#/Vol] 1.5 10*3/uL Normal 1.2-4.0 [facility] Comment on above: Performed By: #### 8 5499 #### [facility] [address] [facility] [place] [address], [facility] Lymphocytes/100 WBC (Bld) 5.5 % Low 20.0-45.0 [facility] Comment on above: Performed By: #### 8 5499 #### [facility] [address] [facility] [place] [address], [facility] MCH (RBC) [Entitic mass] 30.4 pg Normal 27.0-33.0 [facility] Comment on above: Performed By: #### 8 5499 #### [facility] [address] [facility] [address] MCHC (RBC) [Mass/Vol] 31.3 g/dL Low 32.0-35.0 [facility] Comment on above: Performed By: #### 8 5499 #### [facility] [address] [place] [address], [facility] MCV (RBC) [Entitic vol] 97.3 fL Normal 82.0-98.0 [facility] Comment on above: Performed By: #### 8 5499 #### [facility] [address] [facility] [place] [address], [facility] Monocytes (Bld) [#/Vol] 0.6 10*3/uL Normal 0.1-1.0 [facility] Comment on above: Performed By: #### 8 5499 #### [facility] [address] [facility] [place] [address], [facility] MONOS 2.1 % Low 5.0-12.0 [facility] Comment on above: Performed By: #### 8 5499 #### [facility] [address] [facility] [place] [address], [facility] Neutrophils/100 WBC (Bld) 90.2 % High 40.0-72.0 [facility] Comment on above: Performed By: #### 8 5499 #### [facility] [address] [facility] [place] [address], [facility] Nucleated RBC/100 WBC (Bld) [Ratio] 0 % Normal 0-0 [facility] Comment on above: Performed By: #### 8 [id number] #### [facility] [address] [facility] [place] [address], [facility] PLAT CNT 321 10*3/uL Normal 150-400 [facility] Comment on above: Performed By: #### 8 5499 #### [facility] [address] [place] [address], [facility] POIK Slight Normal [facility] Comment on above: Performed By: #### 8 5499 #### [facility] [address] [place] [address], [place] POLY Slight Normal [facility] Comment on above: Performed By: #### 8 5499 #### [facility] [address] [place] [address], [place] RBC (Bld) [#/Vol] 3.32 10*6/uL Low 3.80-5.00 The [facility] Comment on above: Performed By: #### 8 5499 #### [facility] [address] [place] [address], [place] WBC (Bld) [#/Vol] 27.12 10*3/uL High 4.00-10.60 [facility] Comment on above: Performed By: #### 8 5499 #### [facility] [address] [place] [address], [place] MAGNESIUM BLOODon 04-08-2022 Magnesium [Mass/Vol] 1.4 mg/dL Low 1.9-2.7 [facility] Comment on above: Order Comment: No: D o not add to previous draw Performed By: #### 2 2706 #### [facility] [address] [place] [address], [place] POC GLUCOSE LABon 04-08-2022 Glucose [Mass/Vol] 129 mg/dL High 70-100 [facility] Comment on above: Performed By: #### 8 5499 #### [facility] [address] [place] [address], [place] Glucose [Mass/Vol] 130 mg/dL High 70-100 [facility] Comment on above: Performed By: #### 5 0608 #### [facility] [address] [place] [address], [place] Glucose [Mass/Vol] 132 mg/dL High 70-100 [facility] Comment on above: Performed By: #### 8 5499 #### [facility] [address] [place] [address], [place] Glucose [Mass/Vol] 129 mg/dL High 70-100 [facility] Comment on above: Performed By: #### 8 5499 #### [facility] [address] [place] [address], [place] BASIC METABOLIC PANELon 05-2 Calcium [Mass/Vol] 7.8 mg/dL Low 8.6-10.3 [facility] Comment on above: Order Comment: No: D o not add to previous draw Performed By: #### 8 5499 #### [facility] [address] [place] [address], [place] Chloride [Moles/Vol] 107 mmol/L Normal 98-107 [facility] Comment on above: Order Comment: No: D o not add to previous draw Performed By: #### 8 5499 #### [facility] [address] [place] [address], [place] CO2 [Moles/Vol] 26 mmol/L Normal 21-31 The [facility] Comment on above: Order Comment: No: D o not add to previous draw Performed By: #### 8 5499 #### [facility] [address] [place] [address], [place] Creatinine [Mass/Vol] 1.14 mg/dL Normal 0.60-1.20 [facility] Comment on above: Order Comment: No: D o not add to previous draw Performed By: #### 8 5499 #### [facility] [address] [place] [address], [place] eGFR- 55 ml/min/1.73sq m Abnormal >60 [facility] Comment on above: Order Comment: No: D o not add to previous draw Result Comment: Calc ulation may not be valid for patients over 70 years Performed By: #### 8 5499 #### [facility] [address] [place] [address], [facility] eGFR- non- 45 ml/min/1.73sq m Abnormal >60 [facility] Comment on above: Order Comment: No: D o not add to previous draw Result Comment: Calc ulation may not be valid for patients over 70 years Performed By: #### 8 5499 #### [facility] [address] [place] [address], [place] Glucose [Mass/Vol] 96 mg/dL Normal 70-100 [facility] Comment on above: Order Comment: No: D o not add to previous draw Performed By: #### 8 5499 #### [facility] [address] [place] [address], [facility] Potassium [Moles/Vol] 4.0 mmol/L Normal 3.5-5.1 [facility] Comment on above: Order Comment: No: D o not add to previous draw Performed By: #### 8 5499 #### [facility] [address] [place] [address], [place] Sodium [Moles/Vol] 139 mmol/L Normal 136-145 [facility] Comment on above: Order Comment: No: D o not add to previous draw Performed By: #### 8 5499 #### [facility] [address] [place] [address], [facility] Urea nitrogen [Mass/Vol] 13 mg/dL Normal 7-25 [facility] Comment on above: Order Comment: No: D o not add to previous draw Performed By: #### 8 [id number] #### [facility] [address] [place] [id number], [facility] CBC COMPLETE BLOOD COUNTon 0 5- Erythrocyte distribution width (RBC) [Ratio] 19.3 % High 11.5-15.0 [facility] Comment on above: Order Comment: No: D o not add to previous draw Performed By: #### 5 0608 #### [facility] [address] [place] [address], [facility] Hematocrit (Bld) [Volume fraction] 27.9 % Low 36.0-45.0 [facility] Comment on above: Order Comment: No: D o not add to previous draw Performed By: #### 5 0608 #### [facility] [address] [facility] [place] [address], [facility] Hemoglobin (Bld) [Mass/Vol] 8.4 g/dL Low 12.0-15.0 [facility] Comment on above: Order Comment: No: D o not add to previous draw Performed By: #### 5 0608 #### [facility] [address] MCH (RBC) [Entitic mass] 29.9 pg Normal 27.0-33.0 [facility] Comment on above: Order Comment: No: D o not add to previous draw Performed By: #### 5 0608 #### [facility] [address] MCHC (RBC) [Mass/Vol] 30.1 g/dL Low 32.0-35.0 [facility] Comment on above: Order Comment: No: D o not add to previous draw Performed By: #### 5 0608 #### [facility] 3000 [facility]. [address] MCV (RBC) [Entitic vol] 99.3 fL High 82.0-98.0 [facility] Comment on above: Order Comment: No: D o not add to previous draw Performed By: #### 5 0608 #### [facility] [address] [place] [address], [facility] Nucleated RBC/100 WBC (Bld) [Ratio] 0 % Normal 0-0 [facility] Comment on above: Order Comment: No: D o not add to previous draw Performed By: #### 5 0608 #### [facility] [address] [place] [address], [facility] PLAT CNT 281 10*3/uL Normal 150-400 [facility] Comment on above: Order Comment: No: D o not add to previous draw Performed By: #### 5 0608 #### [facility] [address] [place] [address], [facility] RBC (Bld) [#/Vol] 2.81 10*6/uL Low 3.80-5.00 [facility] Comment on above: Order Comment: No: D o not add to previous draw Performed By: #### 5 0608 #### [facility] [address] [place] [address], [facility] WBC (Bld) [#/Vol] 22.46 10*3/uL High 4.00-10.60 [facility] Comment on above: Order Comment: No: D o not add to previous draw Performed By: #### 5 0608 #### [facility] [address] [place] [id number], [facility] MAGNESIUM BLOODon 04-07-2022 Magnesium [Mass/Vol] 1.7 mg/dL Low 1.9-2.7 [facility] Comment on above: Order Comment: No: D o not add to previous draw Performed By: #### 8 [id number] #### [facility] [address] [place] [id number], [facility] POC GLUCOSE LABon 04-07-2022 Glucose [Mass/Vol] 192 mg/dL High 70-100 [facility] Comment on above: Performed By: #### 8 5499 ####[facility] [id number], [facility] Glucose [Mass/Vol] 139 mg/dL High 70-100 [facility] Comment on above: Performed By: #### 8 5499 #### [facility] [address] [place] [address], [place] Glucose [Mass/Vol] 144 mg/dL High 70-100 [facility] Comment on above: Performed By: #### 8 5499 #### [facility] [address] [place] [address], [place] Glucose [Mass/Vol] 111 mg/dL High 70-100 [facility] Comment on above: Performed By: #### 8 5499 #### [facility] [address] [place] [address], [place] BASIC METABOLIC PANELon 05-2 0-2021 Calcium [Mass/Vol] 8.2 mg/dL Low 8.6-10.3 [facility] Comment on above: Order Comment: Bleed , altereed mental status Performed By: #### 0 0071, 82484, 33577, 19067, 35636 ####[facility] [place] [address], [place] Chloride [Moles/Vol] 106 mmol/L Normal 98-107 [facility] Comment on above: Order Comment: Bleed , altereed mental status Performed By: #### 0 0071, 93943, 09197, 88032, 53021 ####[facility] [place] [address], [place] CO2 [Moles/Vol] 27 mmol/L Normal 21-31 [facility] Comment on above: Order Comment: Bleed , altereed mental status Performed By: #### 0 0071, 20072, 14463, 47431, 94720 ####[facility] [place] [address], [place] Creatinine [Mass/Vol] 1.07 mg/dL Normal 0.60-1.20 [facility] Comment on above: Order Comment: Bleed , altereed mental status Performed By: #### 0 0071, 12624, 94040, 62765, 37233 ####[facility] [place] [address], [facility] eGFR- 59 ml/min/1.73sq m Abnormal >60 [facility] Comment on above: Order Comment: Bleed , altereed mental status Result Comment: Calc ulation may not be valid for patients over 70 years Performed By: #### 0 0071, 20069, 09648, 99770, 35511 ####[facility] [place] [address], [facility] eGFR- non- 49 ml/min/1.73sq m Abnormal >60 [facility] Comment on above: Order Comment: Bleed , altereed mental status Result Comment: Calc ulation may not be valid for patients over 70 years Performed By: #### 0 0071, 46283, 85972, 06605, 88186 ####[facility] [place] [address], [facility] Glucose [Mass/Vol] 100 mg/dL Normal 70-100 [facility] Comment on above: Order Comment: Bleed , altereed mental status Performed By: #### 0 0071, 48469, 90943, 02210, 93900 ####[facility] [place] [address], [facility] Potassium [Moles/Vol] 4.0 mmol/L Normal 3.5-5.1 [facility] Comment on above: Order Comment: Bleed , altereed mental status Performed By: #### 0 0071, 81984, 11824, 38660, 10047 ####[facility] [place] [address], [place] Sodium [Moles/Vol] 139 mmol/L Normal 136-145 The [facility] Comment on above: Order Comment: Bleed , altereed mental status Performed By: #### 0 0071, 49008, 84738, 40309, 55356 ####[facility] Urea nitrogen [Mass/Vol] 15 mg/dL Normal 7-25 The [facility] Comment on above: Order Comment: Bleed , altereed mental status Performed By: #### 0 0071, 97635, 51660, 82955, 71797 ####[facility] BNP (B-TYPE NATRIURETIC PEPT KAELA)on 04-06-2022 Natriuretic peptide B (Bld) [Mass/Vol] 487 pg/mL High 0-100 The [facility] Comment on above: Order Comment: Yes: Add to Previous draw if able Result Comment: Give n the appropriate clinical setting a BNP result of >100 pg/mL indicates congestive heart failure. Performed By: #### 8 [id number] #### [facility] [address] CBC W/DIFFon 04-06-2022 ABS IMM GRANS 0.5 10*3/uL High 0.0-0.2 The [facility] Comment on above: Order Comment: No: D o not add to previous draw Performed By: #### 8 [id number] #### [facility] [address] [place] [address], [facility] ABS NEUTROPHILS 18.4 10*3/uL High 1.6-7.6 The [facility] Comment on above: Order Comment: No: D o not add to previous draw Performed By: #### 8 [id number] #### [facility] [address] [facility] [place] [address], [facility] Basophils (Bld) [#/Vol] 0.1 10*3/uL Normal 0.0-0.2 The [facility] Comment on above: Order Comment: No: D o not add to previous draw Performed By: #### 8 [id number] #### [facility] [address] [facility] [place] [address], [facility] Basophils/100 WBC (Bld) 0.5 % Normal 0.0-1.0 The [facility] Comment on above: Order Comment: No: D o not add to previous draw Performed By: #### 8 [id number] #### [facility] [address] [facility] [place] [address], [facility] Eosinophils (Bld) [#/Vol] 0.0 10*3/uL Normal 0.0-0.5 The [facility] Comment on above: Order Comment: No: D o not add to previous draw Performed By: #### 8 [id number] #### [facility] [address] [facility] [place] [address], [facility] Eosinophils/100 WBC (Bld) 0.0 % Normal 0.0-6.0 The [facility] Comment on above: Order Comment: No: D o not add to previous draw Performed By: #### 8 [id number] #### [facility] [address] [facility] [address] Erythrocyte distribution width (RBC) [Ratio] 19.4 % High 11.5-15.0 The [facility] Comment on above: Order Comment: No: D o not add to previous draw Performed By: #### 8 [id number] #### [facility] [address] [facility] [place] [address], [facility] Hematocrit (Bld) [Volume fraction] 28.6 % Low 36.0-45.0 The [facility] Comment on above: Order Comment: No: D o not add to previous draw Performed By: #### 8 [id number] #### [facility] [address] [facility] [place] [address], [facility] Hemoglobin (Bld) [Mass/Vol] 8.8 g/dL Low 12.0-15.0 The [facility] Comment on above: Order Comment: No: D o not add to previous draw Performed By: #### 8 [id number] #### [facility] [address] [place] [address], [facility] IMMATURE GRANS 2.3 % High 0.0-1.0 The [facility] Comment on above: Order Comment: No: D o not add to previous draw Performed By: #### 8 [id number] #### [facility] [address] [facility] [place] [address], [facility] Lymphocytes (Bld) [#/Vol] 1.5 10*3/uL Normal 1.2-4.0 The [facility] Comment on above: Order Comment: No: D o not add to previous draw Performed By: #### 8 [id number] #### [facility] [address] [facility] [place] [address], [facility] Lymphocytes/100 WBC (Bld) 7.2 % Low 20.0-45.0 The [facility] Comment on above: Order Comment: No: D o not add to previous draw Performed By: #### 8 [id number] #### [facility] [address] [facility] [place] [address], [facility] MCH (RBC) [Entitic mass] 30.1 pg Normal 27.0-33.0 The [facility] Comment on above: Order Comment: No: D o not add to previous draw Performed By: #### 8 [id number] #### [facility] [address] [facility] [place] [address], [facility] MCHC (RBC) [Mass/Vol] 30.8 g/dL Low 32.0-35.0 The [facility] Comment on above: Order Comment: No: D o not add to previous draw Performed By: #### 8 [id number] #### [facility] [address] [facility] [place] [id number], [facility] MCV (RBC) [Entitic vol] 97.9 fL Normal 82.0-98.0 The [facility] Comment on above: Order Comment: No: D o not add to previous draw Performed By: #### 8 [id number] #### [facility] [address] [place] [address], [facility] Monocytes (Bld) [#/Vol] 0.3 10*3/uL Normal 0.1-1.0 The [facility] Comment on above: Order Comment: No: D o not add to previous draw Performed By: #### 8 [id number] #### [facility] [address] [place] [id number], [facility] MONOS 1.6 % Low 5.0-12.0 The [facility] Comment on above: Order Comment: No: D o not add to previous draw Performed By: #### 8 [id number] #### [facility] [address] [place] [address], [facility] Neutrophils/100 WBC (Bld) 88.4 % High 40.0-72.0 The [facility] Comment on above: Order Comment: No: D o not add to previous draw Performed By: #### 8 [id number] #### [facility] [address] [place] [address], [facility] Nucleated RBC/100 WBC (Bld) [Ratio] 0 % Normal 0-0 The [facility] Comment on above: Order Comment: No: D o not add to previous draw Performed By: #### 8 [id number] #### [facility] [address] [place] [address], [facility] PLAT CNT 279 10*3/uL Normal 150-400 The [facility] Comment on above: Order Comment: No: D o not add to previous draw Performed By: #### 8 [id number] #### [facility] [address] [place] [address], [facility] RBC (Bld) [#/Vol] 2.92 10*6/uL Low 3.80-5.00 The [facility] Comment on above: Order Comment: No: D o not add to previous draw Performed By: #### 8 [id number] #### [facility] [address] [place] [address], [place] WBC (Bld) [#/Vol] 20.84 10*3/uL High 4.00-10.60 The [facility] Comment on above: Order Comment: No: D o not add to previous draw Performed By: #### 8 [id number] #### [facility] [address] [place] [address], [facility] DIGOXINon 04-06-2022 Digoxin [Mass/Vol] 1.0 ng/mL Normal 0.7-2.0 [facility] Comment on above: Performed By: #### 0 0071, 91119, 34278, 32652, 65021 ####[facility] [place] [address], [facility] LIPASE BLOODon 04-06-2022 LIPASE 68 Units/L Normal 11-82 The [facility] Comment on above: Performed By: #### 0 0071, 18040, 34996, 16209, 68854 ####[facility] [place] [address], [facility] MAGNESIUM BLOODon 04-06-2022 Magnesium [Mass/Vol] 1.6 mg/dL Low 1.9-2.7 The [facility] Comment on above: Order Comment: Bleed , altereed mental status Performed By: #### 0 0071, 40513, 27497, 72211, 63250 ####[facility] [place] [address], [facility] PHOSPHORUS BLOODon 2 Phosphate [Mass/Vol] 3.5 mg/dL Normal 2.5-5.0 The [facility] Comment on above: Order Comment: No: D o not add to previous draw Performed By: #### 8 [id number] #### [facility] [address] [place] [address], [place] POC GLUCOSE LABon 04-06-2022 Glucose [Mass/Vol] 121 mg/dL High 70-100 The [facility] Comment on above: Performed By: #### 3 0313 #### [facility] [address] [place] [address], [place] Glucose [Mass/Vol] 171 mg/dL High 70-100 The [facility] Comment on above: Performed By: #### 8 [id number] #### [facility] [address] [place] [address], [facility] Glucose [Mass/Vol] 178 mg/dL High 70-100 The [facility] Comment on above: Performed By: #### 8 5499 #### [facility] [address] [facility] [place] [address], [facility] Glucose [Mass/Vol] 102 mg/dL High 70-100 The [facility] Comment on above: Performed By: #### 5 0608 #### [facility] [address] [facility]. [address] APTTon 04-05-2022 aPTT Coag (Bld) [Time] 29.7 s Normal 25.0-35.0 The [facility] Comment on above: Order Comment: No: D [...] PURPOSE. Performed By: #### 8 [id number] #### [facility] [address] [facility] [place] [address], [facility] CBC W/DIFFon 04-05-2022 ABS IMM GRANS 0.4 10*3/uL High 0.0-0.2 The [facility] Comment on above: Order Comment: No: D o not add to previous draw Performed By: #### 8 [id number] #### [facility] [address] [place] [address], [facility] ABS NEUTROPHILS 19.7 10*3/uL High 1.6-7.6 The [facility] Comment on above: Order Comment: No: D o not add to previous draw Performed By: #### 8 [id number] #### [facility] [address] [place] [address], [facility] ANISO Moderate Normal The [facility] Comment on above: Order Comment: No: D o not add to previous draw Performed By: #### 8 5499 #### [facility] [address] [place] [id number], [facility] Basophils (Bld) [#/Vol] 0.2 10*3/uL Normal 0.0-0.2 The [facility] Comment on above: Order Comment: No: D o not add to previous draw Performed By: #### 8 [id number] #### [facility] [address] [place] [address], [facility] Basophils/100 WBC (Bld) 0.7 % Normal 0.0-1.0 The [facility] Comment on above: Order Comment: No: D o not add to previous draw Performed By: #### 8 [id number] #### [facility] [address] [place] [id number], [facility] Eosinophils (Bld) [#/Vol] 0.0 10*3/uL Normal 0.0-0.5 The [facility] Comment on above: Order Comment: No: D o not add to previous draw Performed By: #### 8 [id number] #### [facility] [address] [place] [address], [facility] Eosinophils/100 WBC (Bld) 0.1 % Normal 0.0-6.0 The [facility] Comment on above: Order Comment: No: D o not add to previous draw Performed By: #### 8 [id number] #### [facility] [address] [place] [address], [facility] Erythrocyte distribution width (RBC) [Ratio] 19.5 % High 11.5-15.0 The [facility] Comment on above: Order Comment: No: D o not add to previous draw Performed By: #### 8 [id number] #### [facility] [address] [place] [address], [facility] Hematocrit (Bld) [Volume fraction] 27.8 % Low 36.0-45.0 The [facility] Comment on above: Order Comment: No: D o not add to previous draw Performed By: #### 8 [id number] #### [facility] [address] [place] [id number], [facility] Hemoglobin (Bld) [Mass/Vol] 8.6 g/dL Low 12.0-15.0 [facility] Comment on above: Order Comment: No: D o not add to previous draw Performed By: #### 8 [id number] #### [facility] [address] [facility] [place] [address], [facility] IMMATURE GRANS 2.0 % High 0.0-1.0 The [facility] Comment on above: Order Comment: No: D o not add to previous draw Performed By: #### 8 [id number] #### [facility] [address] [facility] [place] [address], [facility] Lymphocytes (Bld) [#/Vol] 1.4 10*3/uL Normal 1.2-4.0 The [facility] Comment on above: Order Comment: No: D o not add to previous draw Performed By: #### 8 5499 #### [facility] [address] [place] [address], [facility] Lymphocytes/100 WBC (Bld) 6.5 % Low 20.0-45.0 [facility] Comment on above: Order Comment: No: D o not add to previous draw Performed By: #### 8 5499 #### [facility] [address] [place] [address], [facility] MCH (RBC) [Entitic mass] 30.3 pg Normal 27.0-33.0 [facility] Comment on above: Order Comment: No: D o not add to previous draw Performed By: #### 8 5499 #### [facility] [address] [place] [id number], [facility] MCHC (RBC) [Mass/Vol] 30.9 g/dL Low 32.0-35.0 [facility] Comment on above: Order Comment: No: D o not add to previous draw Performed By: #### 8 5499 #### [facility] [address] [place] [address], [facility] MCV (RBC) [Entitic vol] 97.9 fL Normal 82.0-98.0 [facility] Comment on above: Order Comment: No: D o not add to previous draw Performed By: #### 8 5499 #### [facility] [address] [place] [id number], [facility] Monocytes (Bld) [#/Vol] 0.4 10*3/uL Normal 0.1-1.0 [facility] Comment on above: Order Comment: No: D o not add to previous draw Performed By: #### 8 [id number] #### [facility] [address] [place] [id number], [facility] MONOS 1.9 % Low 5.0-12.0 [facility] Comment on above: Order Comment: No: D o not add to previous draw Performed By: #### 8 5499 #### [facility] [address] [place] [id number], [facility] Neutrophils/100 WBC (Bld) 88.8 % High 40.0-72.0 [facility] Comment on above: Order Comment: No: D o not add to previous draw Performed By: #### 8 5499 #### [facility] [address] [place] [id number], [facility] Nucleated RBC/100 WBC (Bld) [Ratio] 0 % Normal 0-0 [facility] Comment on above: Order Comment: No: D o not add to previous draw Performed By: #### 8 [id number] #### [facility] [address] [place] [address], [facility] PLAT CNT 303 10*3/uL Normal 150-400 The [facility] Comment on above: Order Comment: No: D o not add to previous draw Performed By: #### 8 5499 #### [facility] [address] [facility]. [address] POIK Slight Normal The [facility] Comment on above: Order Comment: No: D o not add to previous draw Performed By: #### 8 5499 #### [facility] [address] [place] [address], [facility] POLY Slight Normal The [facility] Comment on above: Order Comment: No: D o not add to previous draw Performed By: #### 8 5499 #### [facility] [address] RBC (Bld) [#/Vol] 2.84 10*6/uL Low 3.80-5.00 The [facility] Comment on above: Order Comment: No: D o not add to previous draw Performed By: #### 8 5499 #### [facility] [address] [place] [address], [facility] WBC (Bld) [#/Vol] 22.20 10*3/uL High 4.00-10.60 [facility] Comment on above: Order Comment: No: D o not add to previous draw Performed By: #### 8 5499 #### [facility] [address] COMP METABOLIC PANELon 04-05 Albumin [Mass/Vol] 2.5 g/dL Low 3.5-5.7 The [facility] Comment on above: Order Comment: The A ptima SARS-CoV-2 assay is a nucleic acid amplification test intended for the qualitative detection of RNA from SARS-CoV-2 isolated and purified from nasopharyngeal (CONSTRUCTION LABORER),oropharyngeal (OP), nasal swab, sputum, and bronchoalveolar lavage (BAL) specimens from patients with signs and symptoms of infection who are suspected of COVID-19. Results are for the identification of SARS-CoV-2 RNA. The SARS-CoV-2 RNA is generally detectable during the acute phase of infection. The Aptima SARS-CoV-2 Assay on the [place] [employer] system is intended for use by laboratory personnel specifically instructed and trained in the operation of the [place] [employer] system. The Aptima SARS-CoV-2 assay is [...] information. Performed By: #### 3 1792 #### [facility] [address] ALKALINE PHOSPH 100 IU/L Normal 34-104 The [facility] Comment on above: Order Comment: The A ptima SARS-CoV-2 assay is a nucleic acid amplification test intended for the qualitative detection of RNA from SARS-CoV-2 isolated and purified from nasopharyngeal (CONSTRUCTION LABORER),oropharyngeal (OP), nasal swab, sputum, and bronchoalveolar lavage (BAL) specimens from patients with signs and symptoms of infection who are suspected of COVID-19. Results are for the identification of SARS-CoV-2 RNA. The SARS-CoV-2 RNA is generally detectable during the acute phase of infection. The Aptima SARS-CoV-2 Assay on the [place] [employer] system is intended for use by laboratory personnel specifically instructed and trained in the operation of the [place] [employer] system. The Aptima SARS-CoV-2 assay is [...] information. Performed By: #### 3 1792 #### [facility] [address] [facility] [place], [place] [id number] [place] [address] ALT [Catalytic activity/Vol] 13 U/L Normal 7-52 [facility] Comment on above: Order Comment: The A ptima SARS-CoV-2 assay is a nucleic acid amplification test intended for the qualitative detection of RNA from SARS-CoV-2 isolated and purified from nasopharyngeal (CONSTRUCTION LABORER),oropharyngeal (OP), nasal swab, sputum, and bronchoalveolar lavage (BAL) specimens from patients with signs and symptoms of infection who are suspected of COVID-19. Results are for the identification of SARS-CoV-2 RNA. The SARS-CoV-2 RNA is generally detectable during the acute phase of infection. The Aptima SARS-CoV-2 Assay on the [employer] system is intended for use by laboratory personnel specifically instructed and trained in the operation of the [place] [employer] Fusion system. The Aptima SARS-CoV-2 assay is [...] information. Performed By: #### 3 1792 #### [facility] [address] [facility] [place] [address], [facility] AST [Catalytic activity/Vol] 12 U/L Low 13-39 [facility] Comment on above: Order Comment: The A ptima SARS-CoV-2 assay is a nucleic acid amplification test intended for the qualitative detection of RNA from SARS-CoV-2 isolated and purified from nasopharyngeal (CONSTRUCTION LABORER),oropharyngeal (OP), nasal swab, sputum, and bronchoalveolar lavage (BAL) specimens from patients with signs and symptoms of infection who are suspected of COVID-19. Results are for the identification of SARS-CoV-2 RNA. The SARS-CoV-2 RNA is generally detectable during the acute phase of infection. The Aptima SARS-CoV-2 Assay on the [place] [employer] system is intended for use by laboratory personnel specifically instructed and trained in the operation of the [place] [employer] system. The Aptima SARS-CoV-2 assay is [...] information. Performed By: #### 3 1792 #### [facility] [address] Bilirubin [Mass/Vol] 0.8 mg/dL Normal 0.3-1.0 The [facility] Comment on above: Order Comment: The A ptima SARS-CoV-2 assay is a nucleic acid amplification test intended for the qualitative detection of RNA from SARS-CoV-2 isolated and purified from nasopharyngeal (CONSTRUCTION LABORER),oropharyngeal (OP), nasal swab, sputum, and bronchoalveolar lavage (BAL) specimens from patients with signs and symptoms of infection who are suspected of COVID-19. Results are for the identification of SARS-CoV-2 RNA. The SARS-CoV-2 RNA is generally detectable during the acute phase of infection. The Aptima SARS-CoV-2 Assay on the [place] [employer] [place] [employer] system is intended for use by laboratory personnel specifically instructed and trained in the operation of the [place] [employer] system. The Aptima SARS-CoV-2 assay is [...] information. Performed By: #### 3 1792 #### [facility] [address] [facility] [place] [address] Calcium [Mass/Vol] 8.1 mg/dL Low 8.6-10.3 The [facility] Comment on above: Order Comment: The A ptima SARS-CoV-2 assay is a nucleic acid amplification test intended for the qualitative detection of RNA from SARS-CoV-2 isolated and purified from nasopharyngeal (CONSTRUCTION LABORER),oropharyngeal (OP), nasal swab, sputum, and bronchoalveolar lavage (BAL) specimens from patients with signs and symptoms of infection who are suspected of COVID-19. Results are for the identification of SARS-CoV-2 RNA. The SARS-CoV-2 RNA is generally detectable during the acute phase of infection. The Aptima SARS-CoV-2 Assay on the [employer] system is intended for use by laboratory personnel specifically instructed and trained in the operation of the [employer] Fusion system. The Aptima SARS-CoV-2 assay is [...] information. Performed By: #### 3 1792 #### [facility] [employer]. [address] Chloride [Moles/Vol] 106 mmol/L Normal 98-107 The [facility] Comment on above: Order Comment: The A ptima SARS-CoV-2 assay is a nucleic acid amplification test intended for the qualitative detection of RNA from SARS-CoV-2 isolated and purified from nasopharyngeal (CONSTRUCTION LABORER),oropharyngeal (OP), nasal swab, sputum, and bronchoalveolar lavage (BAL) specimens from patients with signs and symptoms of infection who are suspected of COVID-19. Results are for the identification of SARS-CoV-2 RNA. The SARS-CoV-2 RNA is generally detectable during the acute phase of infection. The Aptima SARS-CoV-2 Assay on the [employer] and [employer] Fusion system is intended for use by laboratory personnel specifically instructed and trained in the operation of the [place] [employer] system. The Aptima SARS-CoV-2 assay is [...] information. Performed By: #### 3 1792 #### [facility] [address] [place] [address], [facility] CO2 [Moles/Vol] 26 mmol/L Normal 21-31 [facility] Comment on above: Order Comment: The A ptima SARS-CoV-2 assay is a nucleic acid amplification test intended for the qualitative detection of RNA from SARS-CoV-2 isolated and purified from nasopharyngeal (CONSTRUCTION LABORER),oropharyngeal (OP), nasal swab, sputum, and bronchoalveolar lavage (BAL) specimens from patients with signs and symptoms of infection who are suspected of COVID-19. Results are for the identification of SARS-CoV-2 RNA. The SARS-CoV-2 RNA is generally detectable during the acute phase of infection. The Aptima SARS-CoV-2 Assay on the [place] [employer] system is intended for use by laboratory personnel specifically instructed and trained in the operation of the [place] [employer] [place] [employer] system. The Aptima SARS-CoV-2 assay is [...] information. Performed By: #### 3 1792 #### [facility] [address] [place] [address], [facility] Creatinine [Mass/Vol] 1.24 mg/dL High 0.60-1.20 [facility] [place] Comment on above: Order Comment: The A ptima SARS-CoV-2 assay is a nucleic acid amplification test intended for the qualitative detection of RNA from SARS-CoV-2 isolated and purified from nasopharyngeal (CONSTRUCTION LABORER),oropharyngeal (OP), nasal swab, sputum, and bronchoalveolar lavage (BAL) specimens from patients with signs and symptoms of infection who are suspected of COVID-19. Results are for the identification of SARS-CoV-2 RNA. The SARS-CoV-2 RNA is generally detectable during the acute phase of infection. The Aptima SARS-CoV-2 Assay on the [place] [employer] [place] [employer] system is intended for use by laboratory personnel specifically instructed and trained in the operation of the [place] [employer] [place] [employer] system. The Aptima SARS-CoV-2 assay is [...] information. Performed By: #### 3 1792 #### [facility] [address] [facility] eGFR- 50 ml/min/1.73sq m Abnormal >60 The [facility] Comment on above: Order Comment: The A ptima SARS-CoV-2 assay is a nucleic acid amplification test intended for the qualitative detection of RNA from SARS-CoV-2 isolated and purified from nasopharyngeal (CONSTRUCTION LABORER),oropharyngeal (OP), nasal swab, sputum, and bronchoalveolar lavage (BAL) specimens from patients with signs and symptoms of infection who are suspected of COVID-19. Results are for the identification of SARS-CoV-2 RNA. The SARS-CoV-2 RNA is generally detectable during the acute phase of infection. The Aptima SARS-CoV-2 Assay on the [place] [employer] [place] [employer] system is intended for use by laboratory personnel specifically instructed and trained in the operation of the [place] [employer] [place] [employer] system. The Aptima SARS-CoV-2 assay is [...] years Performed By: #### 3 1792 #### [facility] [address] [facility] [place] [address], [facility] eGFR- non- 42 ml/min/1.73sq m Abnormal >60 The [facility] Comment on above: Order Comment: The A ptima SARS-CoV-2 assay is a nucleic acid amplification test intended for the qualitative detection of RNA from SARS-CoV-2 isolated and purified from nasopharyngeal (CONSTRUCTION LABORER),oropharyngeal (OP), nasal swab, sputum, and bronchoalveolar lavage (BAL) specimens from patients with signs and symptoms of infection who are suspected of COVID-19. Results are for the identification of SARS-CoV-2 RNA. The SARS-CoV-2 RNA is generally detectable during the acute phase of infection. The Aptima SARS-CoV-2 Assay on the [employer] [place] [employer] system is intended for use by laboratory personnel specifically instructed and trained in the operation of the [place] [employer] [place] [employer] system. The Aptima SARS-CoV-2 assay is [...] years Performed By: #### 3 1792 #### [facility] [address] [place] [address], [facility] Glucose [Mass/Vol] 95 mg/dL Normal 70-100 [facility] Comment on above: Order Comment: The A ptima SARS-CoV-2 assay is a nucleic acid amplification test intended for the qualitative detection of RNA from SARS-CoV-2 isolated and purified from nasopharyngeal (CONSTRUCTION LABORER),oropharyngeal (OP), nasal swab, sputum, and bronchoalveolar lavage (BAL) specimens from patients with signs and symptoms of infection who are suspected of COVID-19. Results are for the identification of SARS-CoV-2 RNA. The SARS-CoV-2 RNA is generally detectable during the acute phase of infection. The Aptima SARS-CoV-2 Assay on the [place] [employer] [place] [employer] system is intended for use by laboratory personnel specifically instructed and trained in the operation of the [place] [employer] [place] [employer] system. The Aptima SARS-CoV-2 assay is [...] information. Performed By: #### 3 1792 #### [address] Potassium [Moles/Vol] 4.1 mmol/L Normal 3.5-5.1 The [facility] [place] Comment on above: Order Comment: The A ptima SARS-CoV-2 assay is a nucleic acid amplification test intended for the qualitative detection of RNA from SARS-CoV-2 isolated and purified from nasopharyngeal (CONSTRUCTION LABORER),oropharyngeal (OP), nasal swab, sputum, and bronchoalveolar lavage (BAL) specimens from patients with signs and symptoms of infection who are suspected of COVID-19. Results are for the identification of SARS-CoV-2 RNA. The SARS-CoV-2 RNA is generally detectable during the acute phase of infection. The Aptima SARS-CoV-2 Assay on the [place] [employer] [place] [employer] system is intended for use by laboratory personnel specifically instructed and trained in the operation of the [place] [employer] [place] [employer] system. The Aptima SARS-CoV-2 assay is [...] information. Performed By: #### 3 1792 #### [facility] [address] [facility] [place] [address], [facility] Protein [Mass/Vol] 5.0 g/dL Low 6.0-8.3 The [facility] Comment on above: Order Comment: The A ptima SARS-CoV-2 assay is a nucleic acid amplification test intended for the qualitative detection of RNA from SARS-CoV-2 isolated and purified from nasopharyngeal (CONSTRUCTION LABORER),oropharyngeal (OP), nasal swab, sputum, and bronchoalveolar lavage (BAL) specimens from patients with signs and symptoms of infection who are suspected of COVID-19. Results are for the identification of SARS-CoV-2 RNA. The SARS-CoV-2 RNA is generally detectable during the acute phase of infection. The Aptima SARS-CoV-2 Assay on the [employer] [place] [employer] system is intended for use by laboratory personnel specifically instructed and trained in the operation of the [place] [employer] [place] [employer] system. The Aptima SARS-CoV-2 assay is [...] and epidemiological information. Performed By: #### 3 1794 #### [facility] [address] [facility] [place] [address], [facility] Sodium [Moles/Vol] 138 mmol/L Normal 136-145 The [facility] Comment on above: Order Comment: The A ptima SARS-CoV-2 assay is a nucleic acid amplification test intended for the qualitative detection of RNA from SARS-CoV-2 isolated and purified from nasopharyngeal (CONSTRUCTION LABORER),oropharyngeal (OP), nasal swab, sputum, and bronchoalveolar lavage (BAL) specimens from patients with signs and symptoms of infection who are suspected of COVID-19. Results are for the identification of SARS-CoV-2 RNA. The SARS-CoV-2 RNA is generally detectable during the acute phase of infection. The Aptima SARS-CoV-2 Assay on the [place] [employer] [place] [employer] system is intended for use by laboratory personnel specifically instructed and trained in the operation of the [place] [employer] [place] [employer] system. The Aptima SARS-CoV-2 assay is [...] information. Performed By: #### 3 1792 #### [facility] [address] Urea nitrogen [Mass/Vol] 24 mg/dL Normal 7-25 The [facility] [place] Comment on above: Order Comment: The A ptima SARS-CoV-2 assay is a nucleic acid amplification test intended for the qualitative detection of RNA from SARS-CoV-2 isolated and purified from nasopharyngeal (CONSTRUCTION LABORER),oropharyngeal (OP), nasal swab, sputum, and bronchoalveolar lavage (BAL) specimens from patients with signs and symptoms of infection who are suspected of COVID-19. Results are for the identification of SARS-CoV-2 RNA. The SARS-CoV-2 RNA is generally detectable during the acute phase of infection. The Aptima SARS-CoV-2 Assay on the [place] [employer] [place] [employer] system is intended for use by laboratory personnel specifically instructed and trained in the operation of the [place] [employer] [place] [employer] system. The Aptima SARS-CoV-2 assay is [...] information. Performed By: #### 3 1792 #### [facility] [address] [facility] [place] [address], [facility] HEMOGLOBINon 04-05-2022 Hemoglobin (Bld) [Mass/Vol] 8.9 g/dL Low 12.0-15.0 The [facility] [place] Comment on above: Order Comment: No: D o not add to previous draw Performed By: #### 8 [id number] #### [facility] [address] [facility] [place] [address], [facility] Hemoglobin (Bld) [Mass/Vol] 10.1 g/dL Low 12.0-15.0 [facility] [place] Comment on above: Order Comment: No: D o not add to previous draw Performed By: #### 8 [id number] #### [facility] [address] [place] [address], [facility] MAGNESIUM BLOODon 04-05-2022 Magnesium [Mass/Vol] 1.6 mg/dL Low 1.9-2.7 The [facility] [place] Comment on above: Order Comment: The A ptima SARS-CoV-2 assay is a nucleic acid amplification test intended for the qualitative detection of RNA from SARS-CoV-2 isolated and purified from nasopharyngeal (CONSTRUCTION LABORER),oropharyngeal (OP), nasal swab, sputum, and bronchoalveolar lavage (BAL) specimens from patients with signs and symptoms of infection who are suspected of COVID-19. Results are for the identification of SARS-CoV-2 RNA. The SARS-CoV-2 RNA is generally detectable during the acute phase of infection. The Aptima SARS-CoV-2 Assay on the [place] [employer] [place] [employer] system is intended for use by laboratory personnel specifically instructed and trained in the operation of the [place] [employer] [place] [employer] system. The Aptima SARS-CoV-2 assay is [...] information. Performed By: #### 3 1792 #### [facility] [address] [facility] [address], [facility] PHOSPHORUS BLOODon 2 Phosphate [Mass/Vol] 3.5 mg/dL Normal 2.5-5.0 [facility] Comment on above: Order Comment: The A ptima SARS-CoV-2 assay is a nucleic acid amplification test intended for the qualitative detection of RNA from SARS-CoV-2 isolated and purified from nasopharyngeal (CONSTRUCTION LABORER),oropharyngeal (OP), nasal swab, sputum, and bronchoalveolar lavage (BAL) specimens from patients with signs and symptoms of infection who are suspected of COVID-19. Results are for the identification of SARS-CoV-2 RNA. The SARS-CoV-2 RNA is generally detectable during the acute phase of infection. The Aptima SARS-CoV-2 Assay on the [employer] and [place] [employer] system is intended for use by laboratory personnel specifically instructed and trained in the operation of the [place] [employer] system. The Aptima SARS-CoV-2 assay is [...] information. Performed By: #### 3 1792 #### [facility] [address] [place] [address], [facility] POC GLUCOSE LABon 04-05-2022 Glucose [Mass/Vol] 115 mg/dL High 70-100 The [facility] Comment on above: Performed By: #### 5 0608 #### [facility] 3000 [place] [address], [place] Glucose [Mass/Vol] 119 mg/dL High 70-100 [facility] Comment on above: Performed By: #### 8 [id number] #### [facility] [address] [place] [address], [place] Glucose [Mass/Vol] 145 mg/dL High 70-100 [facility] Comment on above: Performed By: #### 8 5499 #### [facility] [address] [place] [address], [place] Glucose [Mass/Vol] 108 mg/dL High 70-100 [facility] Comment on above: Performed By: #### 8 5499 #### [facility] [address] [place] [address], [place] Glucose [Mass/Vol] 117 mg/dL High 70-100 [facility] Comment on above: Performed By: #### 8 [id number] #### [facility] [address] [place] [address], [facility] PROTHROMBIN TIMEon 2 INR Coag (PPP) [Relative time] 1.13 {INR} Normal 0.91-1.16 The [facility] [place] Comment on above: Order Comment: No: D [...] 1995;[id number]. Performed By: #### 8 [id number] #### [facility] [address] [place] [address], [facility] PT Coag (PPP) [Time] 14.5 s Normal 12.3-14.8 [facility] Comment on above: Order Comment: No: D o not add to previous draw Result Comment: ALL RESULTS MUST BE INTERPRETED WITH RESPECT TO BLOOD DRAWING ARTIFACT OR DILUTION ERROR OF ANTICOAGULANT AT THE TIME OF SAMPLING. Performed By: #### 8 5499 #### [facility] [address] [facility] APTTon 04-04-2022 aPTT Coag (Bld) [Time] 31.2 s Normal 25.0-35.0 [facility] Comment on above: Order Comment: No: D [...] PURPOSE. Performed By: #### 8 [id number] #### [facility] [address] ARTERIAL BLOOD GAS WITH ICAo n 04-04-2022 BASE EXCESS 0 mmol/L Normal -2-3 The [facility] Comment on above: Performed By: #### 8 [id number] #### [facility] [address] [facility] [place] [address], [facility] DELIVERY SYSTEMS NASAL CANNULA Normal The [facility] Comment on above: Performed By: #### 8 [id number] #### [facility] [address] [place] [address], [facility] HCO3 (Bld) [Moles/Vol] 26 mmol/L Normal 21-28 [facility] [place] Comment on above: Performed By: #### 8 [id number] #### [facility] [address] [place] [address], [facility] IONIZED CALCIUM 1.18 mmol/L Normal 1.13-1.32 The [facility] Comment on above: Performed By: #### 8 [id number] #### [facility] [address] [facility] [place] [address], [facility] LPM 2.0 LPM Normal [facility] Comment on above: Performed By: #### 8 [id number] #### [facility] [address] [facility] [place] [address], [facility] Oxygen (Bld) [Partial pressure] 74 mm[Hg] Low 83-108 [facility] Comment on above: Performed By: #### 8 [id number] #### [facility] [address] [facility] [address] Oxygen saturation in Blood 95.4 % Normal 94.0-97.0 [facility] [place] Comment on above: Performed By: #### 8 [id number] #### [facility] [address] [facility] [place] [address], [facility] PCO2 45 mmHg Normal 35-45 [facility] [place] Comment on above: Performed By: #### 8 [id number] #### [facility] [address] [place] [address], [facility] pH (Bld) 7.37 [pH] Normal 7.35-7.45 [facility] [place] Comment on above: Performed By: #### 8 [id number] #### [facility] [address] [place] [address], [facility] CBC W/DIFFon 04-04-2022 ABS IMM GRANS 0.7 10*3/uL High 0.0-0.2 The [facility] Comment on above: Order Comment: No: D o not add to previous draw Performed By: #### 8 [id number] #### [facility] [address] [place] [address], [facility] ABS NEUTROPHILS 19.9 10*3/uL High 1.6-7.6 The [facility] Comment on above: Order Comment: No: D o not add to previous draw Performed By: #### 8 [id number] #### [facility] [address] [place] [address], [facility] ANISO Moderate Normal [facility] [place] Comment on above: Order Comment: No: D o not add to previous draw Performed By: #### 8 [id number] #### [facility] [address] [place] [address], [facility] Basophils (Bld) [#/Vol] 0.2 10*3/uL Normal 0.0-0.2 [facility] [place] Comment on above: Order Comment: No: D o not add to previous draw Performed By: #### 8 5499 #### [facility] [address] [place] [address], [facility] Basophils/100 WBC (Bld) 0.7 % Normal 0.0-1.0 [facility] [place] Comment on above: Order Comment: No: D o not add to previous draw Performed By: #### 8 [id number] #### [facility] [address] [place] [address], [facility] Eosinophils (Bld) [#/Vol] 0.0 10*3/uL Normal 0.0-0.5 [facility] [place] Comment on above: Order Comment: No: D o not add to previous draw Performed By: #### 8 [id number] #### [facility] [address] [place] [address], [facility] Eosinophils/100 WBC (Bld) 0.1 % Normal 0.0-6.0 [facility] [place] Comment on above: Order Comment: No: D o not add to previous draw Performed By: #### 8 [id number] #### [facility] [address] [place] [address], [facility] Erythrocyte distribution width (RBC) [Ratio] 20.2 % High 11.5-15.0 [facility] [place] Comment on above: Order Comment: No: D o not add to previous draw Performed By: #### 8 [id number] #### [facility] [address] [place] [id number], [facility] Hematocrit (Bld) [Volume fraction] 28.0 % Low 36.0-45.0 [facility] [place] Comment on above: Order Comment: No: D o not add to previous draw Performed By: #### 8 [id number] #### [facility] [address] [place] [id number], [facility] Hemoglobin (Bld) [Mass/Vol] 8.8 g/dL Low 12.0-15.0 [facility] [place] Comment on above: Order Comment: No: D o not add to previous draw Performed By: #### 8 5499 #### [facility] [address] [place] [address], [facility] IMMATURE GRANS 3.0 % High 0.0-1.0 The [facility] Comment on above: Order Comment: No: D o not add to previous draw Performed By: #### 8 [id number] #### [facility] [address] [place] [address], [facility] Lymphocytes (Bld) [#/Vol] 1.1 10*3/uL Low 1.2-4.0 [facility] [place] Comment on above: Order Comment: No: D o not add to previous draw Performed By: #### 8 [id number] #### [facility] [address] [place] [id number], [facility] Lymphocytes/100 WBC (Bld) 5.1 % Low 20.0-45.0 [facility] [place] Comment on above: Order Comment: No: D o not add to previous draw Performed By: #### 8 [id number] #### [facility] [address] [place] [id number], [facility] MCH (RBC) [Entitic mass] 29.9 pg Normal 27.0-33.0 [facility] [place] Comment on above: Order Comment: No: D o not add to previous draw Performed By: #### 8 [id number] #### [facility] [address] [place] [id number], [facility] MCHC (RBC) [Mass/Vol] 31.4 g/dL Low 32.0-35.0 [facility] [place] Comment on above: Order Comment: No: D o not add to previous draw Performed By: #### 8 [id number] #### [facility] [address] [place] [id number], [facility] MCV (RBC) [Entitic vol] 95.2 fL Normal 82.0-98.0 [facility] [place] Comment on above: Order Comment: No: D o not add to previous draw Performed By: #### 8 [id number] #### [facility] [address] [facility] [place] [id number], [facility] Monocytes (Bld) [#/Vol] 0.4 10*3/uL Normal 0.1-1.0 [facility] [place] Comment on above: Order Comment: No: D o not add to previous draw Performed By: #### 8 [id number] #### [facility] [address] [facility] [place] [address], [facility] MONOS 2.0 % Low 5.0-12.0 [facility] [place] Comment on above: Order Comment: No: D o not add to previous draw Performed By: #### 8 [id number] #### [facility] [address] [facility] [place] [address], [facility] Neutrophils/100 WBC (Bld) 89.1 % High 40.0-72.0 [facility] [place] Comment on above: Order Comment: No: D o not add to previous draw Performed By: #### 8 [id number] #### [facility] [address] [place] [address], [facility] Nucleated RBC/100 WBC (Bld) [Ratio] 0 % Normal 0-0 [facility] [place] Comment on above: Order Comment: No: D o not add to previous draw Performed By: #### 8 [id number] #### [facility] [address] [place] [address], [facility] PLAT CNT 303 10*3/uL Normal 150-400 [facility] Comment on above: Order Comment: No: D o not add to previous draw Performed By: #### 8 [id number] #### [facility] [address] [place] [address], [facility] POIK Slight Normal [facility] [place] Comment on above: Order Comment: No: D o not add to previous draw Performed By: #### 8 [id number] #### [facility] [address] [place] [address], [facility] POLY Slight Normal [facility] [place] Comment on above: Order Comment: No: D o not add to previous draw Performed By: #### 8 [id number] #### [facility] [address] [place] [id number], [facility] RBC (Bld) [#/Vol] 2.94 10*6/uL Low 3.80-5.00 The [facility] Comment on above: Order Comment: No: D o not add to previous draw Performed By: #### 8 [id number] #### [facility] [address] [place] [address], [place] WBC (Bld) [#/Vol] 22.35 10*3/uL High 4.00-10.60 [facility] [place] Comment on above: Order Comment: No: D o not add to previous draw Performed By: #### 8 [id number] #### [facility] [address] [place] [address], [facility] COMP METABOLIC PANELon 04-04 Albumin [Mass/Vol] 2.4 g/dL Low 3.5-5.7 The [facility] Comment on above: Order Comment: No: D o not add to previous draw Performed By: #### 8 [id number] #### [facility] [address] [place] [address], [place] ALKALINE PHOSPH 92 IU/L Normal 34-104 The [facility] Comment on above: Order Comment: No: D o not add to previous draw Performed By: #### 8 [id number] #### [facility] [address] [place] [address], [place] ALT [Catalytic activity/Vol] 12 U/L Normal 7-52 [facility] [place] Comment on above: Order Comment: No: D o not add to previous draw Performed By: #### 8 [id number] #### [facility] [address] [place] [address], [place] AST [Catalytic activity/Vol] 10 U/L Low 13-39 [facility] [place] Comment on above: Order Comment: No: D o not add to previous draw Performed By: #### 8 [id number] #### [facility] [address] [place] [address], [place] Bilirubin [Mass/Vol] 1.0 mg/dL Normal 0.3-1.0 [facility] [place] Comment on above: Order Comment: No: D o not add to previous draw Performed By: #### 8 [id number] #### [facility] [address] [place] [address], [place] Calcium [Mass/Vol] 7.7 mg/dL Low 8.6-10.3 The [facility] Comment on above: Order Comment: No: D o not add to previous draw Performed By: #### 8 [id number] #### [facility] [address] [place] [address], [place] Chloride [Moles/Vol] 110 mmol/L High 98-107 [facility] [place] Comment on above: Order Comment: No: D o not add to previous draw Performed By: #### 8 [id number] #### [facility] [address] [place] [address], [place] CO2 [Moles/Vol] 24 mmol/L Normal 21-31 [facility] Comment on above: Order Comment: No: D o not add to previous draw Performed By: #### 8 [id number] #### [facility] [address] [place] [address], [place] Creatinine [Mass/Vol] 1.18 mg/dL Normal 0.60-1.20 [facility] [place] Comment on above: Order Comment: No: D o not add to previous draw Performed By: #### 8 [id number] #### [facility] [address] [place] [address], [facility] eGFR- 53 ml/min/1.73sq m Abnormal >60 [facility] Comment on above: Order Comment: No: D o not add to previous draw Result Comment: Calc ulation may not be valid for patients over 70 years Performed By: #### 8 [id number] #### [facility] [address] [place] [address], [place] eGFR- non- 44 ml/min/1.73sq m Abnormal >60 [facility] Comment on above: Order Comment: No: D o not add to previous draw Result Comment: Calc ulation may not be valid for patients over 70 years Performed By: #### 8 [id number] #### [facility] [address] [place] [address], [place] Glucose [Mass/Vol] 90 mg/dL Normal 70-100 [facility] Comment on above: Order Comment: No: D o not add to previous draw Performed By: #### 8 [id number] #### [facility] [address] [place] [address], [place] Potassium [Moles/Vol] 4.3 mmol/L Normal 3.5-5.1 [facility] Comment on above: Order Comment: No: D o not add to previous draw Performed By: #### 8 [id number] #### [facility] [address] [place] [address], [facility] Protein [Mass/Vol] 4.8 g/dL Low 6.0-8.3 [facility] Comment on above: Order Comment: No: D o not add to previous draw Performed By: #### 8 [id number] #### [facility] [address] [place] [address], [place] Sodium [Moles/Vol] 140 mmol/L Normal 136-145 [facility] Comment on above: Order Comment: No: D o not add to previous draw Performed By: #### 8 [id number] #### [facility] [address] [place] [address], [place] Urea nitrogen [Mass/Vol] 37 mg/dL High 7-25 [facility] Comment on above: Order Comment: No: D o not add to previous draw Performed By: #### 8 [id number] #### [facility] [address] [place] [address], [facility] Endoscopy Reporton 2 Endoscopy Report MR#: [id number] [facility] Pt. Name: María Elena Tafoya Surgery Date: 04/03/2022 Room #: [facility] [id number] Date of : 1940 PROCEDURE NOTE ATTENDING: [...] Olivo M.D. Date Trans: 04/04/2022 04:28 Kate/erik [id number] cc: Bennie Albright M.D. [address], [facility] [place] [phone] Normal [facility] HEMOGLOBINon 04-04-2022 Hemoglobin (Bld) [Mass/Vol] 9.4 g/dL Low 12.0-15.0 [facility] Comment on above: Order Comment: No: D o not add to previous draw Performed By: #### 8 [id number] #### [facility] [address] Hemoglobin (Bld) [Mass/Vol] 9.5 g/dL Low 12.0-15.0 [facility] Comment on above: Order Comment: No: D o not add to previous draw Performed By: #### 5 0608 #### [facility] [address] [place] [address], [facility] Hemoglobin (Bld) [Mass/Vol] 8.9 g/dL Low 12.0-15.0 [facility] Comment on above: Order Comment: No: D o not add to previous draw Performed By: #### 8 [id number] #### [facility] [address] [place] [address], [facility] MAGNESIUM BLOODon 04-04-2022 Magnesium [Mass/Vol] 1.6 mg/dL Low 1.9-2.7 [facility] Comment on above: Order Comment: No: D o not add to previous draw Performed By: #### 8 [id number] #### [facility] [address] [place] [address], [facility] PHOSPHORUS BLOODon Phosphate [Mass/Vol] 3.8 mg/dL Normal 2.5-5.0 [facility] Comment on above: Order Comment: No: D o not add to previous draw Performed By: #### 8 [id number] #### [facility] [address] [place] [address], [place] POC GLUCOSE LABon 04-04-2022 Glucose [Mass/Vol] 123 mg/dL High 70-100 [facility]: Performed By: #### 5 0608 #### [facility] [address] [place] [address], [place] Glucose [Mass/Vol] 152 mg/dL High 70-100 [facility] Comment on above: Performed By: #### 8 [id number] ####[facility] [place] [address], [place] Glucose [Mass/Vol] 111 mg/dL High 70-100 [facility] Comment on above: Performed By: #### 8 5499 #### [facility] [address] [place] [address], [place] Glucose [Mass/Vol] 109 mg/dL High 70-100 [facility] Comment on above: Performed By: #### 8 5499 #### [facility] [address] [place] [address], [place] Glucose [Mass/Vol] 94 mg/dL Normal 70-100 [facility] Comment on above: Performed By: #### 8 5499 ####[facility] [place] [address], [place] PROTHROMBIN TIMEon INR Coag (PPP) [Relative time] 1.18 {INR} High 0.91-1.16 [facility] Comment on above: Order Comment: No: D [...] 1995;108:231S-246S. Performed By: #### 8 5499 #### [address] PT Coag (PPP) [Time] 14.9 s High 12.3-14.8 [facility] Comment on above: Order Comment: No: D o not add to previous draw Result Comment: ALL RESULTS MUST BE INTERPRETED WITH RESPECT TO BLOOD DRAWING ARTIFACT OR DILUTION ERROR OF ANTICOAGULANT AT THE TIME OF SAMPLING. Performed By: #### 8 5499 #### [address] UFH HEPARIN ASSAYon 04-04-20 UNFRACTIONATED HEPARIN 0.11 IU/mL Critically low 0.30-0.70 [facility] Comment on above: Result Comment: RESU LTS CHECKED AND CALLED. ACCURATELY READ BACK BY CHAZ LAWLER RN @ 3950 Rivaroxaban and Apixaban will interfere with the anti Xa assay used to monitor UFH and LMWH. Performed By: #### 8 [id number] #### [address] US GALLBLADDERon 04-04-2022 US GALLBLADDER [facility] Department of Radiology [address] [place] [id number] ======== Patient Name: MARÍA ELENA TAFOYA : 1940 Sex: F Age: Race: NA Pt. Location: [id number] Patient Status: I Ordered Date: 04/03/2022 8:05:00 [...] calculi. Electronically signed: Brooke Verduzco. Transcribed by: [email or web address], User Resident: Electronically Signed by: BROOKE VERDUZCO @ 04/04/2022 07:46 AM Normal [facility] Comment on above: Order Comment: Stone s VENOUS BLOOD GASon BASE EXCESS 2 mmol/L Normal [facility] Comment on above: Performed By: #### 8 [id number] #### [facility] [address] [place] [address], [facility] HCO3 (Bld) [Moles/Vol] 27 mmol/L Normal [facility] Comment on above: Performed By: #### 8 [id number] #### [facility] [address] [place] [address], [facility] Oxygen (Bld) [Partial pressure] 72 mm[Hg] Critically high 35-45 [facility] Comment on above: Performed By: #### 8 [id number] #### [facility] [address] [place] [address], [facility] Oxygen saturation in Blood 93.8 % High 65.0-75.0 [facility] Comment on above: Performed By: #### 8 [id number] #### [facility] [address] [place] [address], [facility] PCO2 42 mmHg Normal [facility] Comment on above: Performed By: #### 8 [id number] #### [facility] [address] [place] [address], [facility] pH (Bld) 7.41 [pH] Normal 7.31-7.41 [facility] Comment on above: Performed By: #### 8 [id number] #### [facility] [address] [place] [address], [facility] APTTon 04-03-2022 aPTT Coag (Bld) [Time] 32.6 s Normal 25.0-35.0 [facility] Comment on above: Order Comment: Yes: Add [...] PURPOSE. Performed By: #### 8 [id number] #### [facility] [address] [place] [address], [facility] ARTERIAL BLOOD GAS WITH ICAo n 04-03-2022 BASE EXCESS 2 mmol/L Normal -2-3 [facility] Comment on above: Performed By: #### 8 [id number] #### [facility] [address] [place] [address], [facility] [employer] [place] Normal [facility] Comment on above: Performed By: #### 8 5499 #### [facility] [address] [place] [address], [facility] HCO3 (Bld) [Moles/Vol] 25 mmol/L Normal 21-28 [facility] Comment on above: Performed By: #### 8 5499 #### [facility] [address] [place] [address], [facility] IONIZED CALCIUM 1.24 mmol/L Normal 1.13-1.32 [facility] Comment on above: Performed By: #### 8 5499 #### [facility] [address] [place] [address], [facility] LPM 4.0 LPM Normal [facility] Comment on above: Performed By: #### 8 5499 #### [facility] [address] [place] [address], [facility] Oxygen (Bld) [Partial pressure] 76 mm[Hg] Low 83-108 [facility] Comment on above: Performed By: #### 8 5499 #### [facility] [address] [place] [address], [facility] Oxygen saturation in Blood 94.0 % Normal 94.0-97.0 [facility] Comment on above: Performed By: #### 8 5499 #### [facility] [address] [place] [address], [facility] PCO2 34 mmHg Low 35-45 [facility] Comment on above: Performed By: #### 8 5499 #### [facility] [address] [place] [address], [facility] pH (Bld) 7.48 [pH] High 7.35-7.45 [facility] Comment on above: Performed By: #### 8 5499 #### [facility] [address] [place] [address], [facility] BASIC METABOLIC PANELon 05-1 Calcium [Mass/Vol] 8.5 mg/dL Low 8.6-10.3 [facility] Comment on above: Order Comment: No: D o not add to previous draw Performed By: #### 8 5499 #### [facility] [address] [place] [address], [facility] Chloride [Moles/Vol] 108 mmol/L High 98-107 [facility] Comment on above: Order Comment: No: D o not add to previous draw Performed By: #### 8 5499 #### [facility] [address] [place] [address], [facility] CO2 [Moles/Vol] 25 mmol/L Normal 21-31 [facility] Comment on above: Order Comment: No: D o not add to previous draw Performed By: #### 8 5499 #### [facility] [address] [place] [id number], [facility] Creatinine [Mass/Vol] 0.96 mg/dL Normal 0.60-1.20 [facility] Comment on above: Order Comment: No: D o not add to previous draw Performed By: #### 8 5499 #### [facility] [address] [place] [address], [facility] eGFR- non- 56 ml/min/1.73sq m Abnormal >60 [facility] Comment on above: Order Comment: No: D o not add to previous draw Result Comment: Calc ulation may not be valid for patients over 70 years Performed By: #### 8 5499 #### [facility] [address] [place] [address], [place] GFR/1.73 sq M.predicted among blacks MDRD (S/P/Bld) [Vol rate/Area] mL/min/{1.73_m2} Normal >60 [facility] Comment on above: Order Comment: No: D o not add to previous draw Result Comment: Calc ulation may not be valid for patients over 70 years Performed By: #### 8 5499 #### [facility] [address] [place] [address], [place] Glucose [Mass/Vol] 122 mg/dL High 70-100 [facility] Comment on above: Order Comment: No: D o not add to previous draw Performed By: #### 8 5499 #### [facility] [address] [place] [address], [place] Potassium [Moles/Vol] 5.5 mmol/L High 3.5-5.1 [facility] Comment on above: Order Comment: No: D o not add to previous draw Performed By: #### 8 5499 #### [facility] [address] [place] [address], [place] Sodium [Moles/Vol] 137 mmol/L Normal 136-145 [facility] Comment on above: Order Comment: No: D o not add to previous draw Performed By: #### 8 5499 #### [facility] [address] [place] [address], [place] Urea nitrogen [Mass/Vol] 30 mg/dL High 7-25 [facility] Comment on above: Order Comment: No: D o not add to previous draw Performed By: #### 8 5499 #### [facility] [address] [place] [address], [place] BLOOD STOOL GUAIACon 022 BLD STOOL GUAIAC Positive Abnormal NEGATIVE [facility] Comment on above: Order Comment: No: D o not add to previous draw Performed By: #### 2 2706 #### [facility] [address] [facility] [address], [facility] CALCIUM IONIZED CBGLon 04-03 IONIZED CALCIUM 1.18 mmol/L Normal 1.12-1.30 [facility] Comment on above: Performed By: #### 8 [id number] #### [facility] [address] [facility] CBC COMPLETE BLOOD COUNTon 0 04-03-2022 Erythrocyte distribution width (RBC) [Ratio] 17.9 % High 11.5-15.0 [facility] Comment on above: Order Comment: No: D o not add to previous draw Performed By: #### 5 0608 #### [facility] [address] [facility]. [address] Hematocrit (Bld) [Volume fraction] 34.4 % Low 36.0-45.0 [facility] Comment on above: Order Comment: No: D o not add to previous draw Performed By: #### 5 0608 #### [facility] [address] [facility] [place] [address], [facility] Hemoglobin (Bld) [Mass/Vol] 10.6 g/dL Low 12.0-15.0 [facility] Comment on above: Order Comment: No: D o not add to previous draw Performed By: #### 5 0608 #### [facility] [address] [facility] [place] [address], [facility] MCH (RBC) [Entitic mass] 30.3 pg Normal 27.0-33.0 [facility] Comment on above: Order Comment: No: D o not add to previous draw Performed By: #### 5 0608 #### [facility] [address] [place] [address], [facility] MCHC (RBC) [Mass/Vol] 30.8 g/dL Low 32.0-35.0 [facility] Comment on above: Order Comment: No: D o not add to previous draw Performed By: #### 5 0608 #### [facility] [address] [place] [address], [facility] MCV (RBC) [Entitic vol] 98.3 fL High 82.0-98.0 [facility] Comment on above: Order Comment: No: D o not add to previous draw Performed By: #### 5 0608 #### [facility] [address] [place] [id number], [facility] Nucleated RBC/100 WBC (Bld) [Ratio] 0 % Normal 0-0 [facility] Comment on above: Order Comment: No: D o not add to previous draw Performed By: #### 5 0608 #### [facility] [address] [place] [address], [place] PLAT CNT 396 10*3/uL Normal 150-400 [facility] Comment on above: Order Comment: No: D o not add to previous draw Performed By: #### 5 0608 #### [facility] [address] [place] [address], [facility] RBC (Bld) [#/Vol] 3.50 10*6/uL Low 3.80-5.00 [facility] Comment on above: Order Comment: No: D o not add to previous draw Performed By: #### 5 0608 #### [facility] [address] [place] [address], [place] WBC (Bld) [#/Vol] 34.46 10*3/uL High 4.00-10.60 [facility] Comment on above: Order Comment: No: D o not add to previous draw Performed By: #### 5 0608 #### [facility] [address] [place] [address], [facility] CT BRAIN WO CONTRASTon 04-03 CT BRAIN WO CONTRAST [facility] Department of Radiology [address] [place] [phone] ======== Patient Name: MARÍA ELENA TAFOYA : 1940 Sex: F Age: Race: NA Pt. Location: [place] [address] Patient Status: I Ordered Date: 04/03/2022 8:30:00 [...] MRLydia Electronically signed: Darrel Gordon. Transcribed by: [email or web address], User Resident: Electronically Signed by: DARREL Yesy BERNARDO @ 04/03/2022 09:21 PM Normal [facility] Comment on above: Order Comment: Bleed , altereed mental status ERCPon 04-03-2022 ERCP [facility] Department of Radiology [address] [place] [phone] ======== Patient Name: MARÍA ELENA TAFOYA : 1940 Sex: F Age: Race: NA Pt. Location: [id number] Patient Status: I Ordered Date: 04/03/2022 8:50:00 [...] details. Electronically signed: Brooke Verduzco. Transcribed by: [email or web address], User Resident: Electronically Signed by: BROOKE VERDUZCO @ 04/03/2022 12:52 PM Normal [facility] Comment on above: Order Comment: Check Stent Position HEMATOCRITon 04-03-2022 Hematocrit (Bld) [Volume fraction] 27.5 % Low 36.0-45.0 [facility] Comment on above: Order Comment: No: D o not add to previous draw Performed By: #### 8 [id number] #### [facility] [address] Hematocrit (Bld) [Volume fraction] 31.1 % Low 36.0-45.0 [facility] Comment on above: Order Comment: No: D o not add to previous draw Performed By: #### 8 [id number] #### [facility] [address] [place] [address], [facility] Hematocrit (Bld) [Volume fraction] 32.2 % Low 36.0-45.0 [facility] Comment on above: Order Comment: No: D o not add to previous draw Performed By: #### 8 [id number] #### [facility] [address] [place] [id number], [facility] HEMOGLOBINon 04-03-2022 Hemoglobin (Bld) [Mass/Vol] 8.8 g/dL Low 12.0-15.0 [facility] Comment on above: Order Comment: No: D o not add to previous draw Performed By: #### 8 [id number] #### [facility] [address] [place] [address], [facility] Hemoglobin (Bld) [Mass/Vol] 9.8 g/dL Low 12.0-15.0 [facility] Comment on above: Order Comment: No: D o not add to previous draw Performed By: #### 8 5499 #### [facility] [address] [place] [address], [facility] Hemoglobin (Bld) [Mass/Vol] 9.9 g/dL Low 12.0-15.0 [facility] Comment on above: Order Comment: No: D o not add to previous draw Performed By: #### 8 5499 #### [facility] [address] [place] [id number], [facility] LIPASE BLOODon 04-03-2022 LIPASE 149 Units/L High 11-82 [facility] Comment on above: Order Comment: No: D o not add to previous draw Performed By: #### 8 [id number] #### [facility] [address] [place] [address], [facility] LIVER BATTERYon 04-03-2022 Albumin [Mass/Vol] 2.8 g/dL Low 3.5-5.7 [facility] Comment on above: Order Comment: No: D o not add to previous draw Performed By: #### 8 5499 #### [facility] [address] [place] [address], [facility] ALKALINE PHOSPH 137 IU/L High 34-104 [facility] Comment on above: Order Comment: No: D o not add to previous draw Performed By: #### 8 5499 #### [facility] [address] [place] [address], [place] ALT [Catalytic activity/Vol] 18 U/L Normal 7-52 [facility] Comment on above: Order Comment: No: D o not add to previous draw Performed By: #### 8 5499 #### [facility] [address] [place] [address], [facility] AST [Catalytic activity/Vol] 8 U/L Low 13-39 [facility] Comment on above: Order Comment: No: D o not add to previous draw Performed By: #### 8 5499 #### [facility] [address] [place] [address], [place] Bilirubin [Mass/Vol] 1.5 mg/dL High 0.3-1.0 [facility] Comment on above: Order Comment: No: D o not add to previous draw Performed By: #### 8 5499 #### [facility] [address] [place] [address], [place] Bilirubin.direct [Mass/Vol] 0.6 mg/dL High 0.0-0.2 [facility] Comment on above: Order Comment: No: D o not add to previous draw Performed By: #### 8 5499 #### [facility] [address] [place] [address], [place] Protein [Mass/Vol] 5.8 g/dL Low 6.0-8.3 [facility] Comment on above: Order Comment: No: D o not add to previous draw Performed By: #### 8 5499 #### [facility] [address] [place] [address], [place] MAGNESIUM BLOODon 04-03-2022 Magnesium [Mass/Vol] 2.0 mg/dL Normal 1.9-2.7 [facility] Comment on above: Order Comment: No: D o not add to previous draw Performed By: #### 8 5499 #### [facility] [address] [place] [address], [place] PHOSPHORUS BLOODon Phosphate [Mass/Vol] 4.2 mg/dL Normal 2.5-5.0 [facility] Comment on above: Order Comment: No: D o not add to previous draw Performed By: #### 8 5499 #### [facility] [address] [place] [address], [place] POC GLUCOSE LABon 04-03-2022 Glucose [Mass/Vol] 121 mg/dL High 70-100 [facility] Comment on above: Performed By: #### 8 5499 #### [facility] [address] [place] [address], [place] Glucose [Mass/Vol] 147 mg/dL High 70-100 [facility] Comment on above: Performed By: #### 8 5499 #### [facility] [address] [place] [address], [place] Glucose [Mass/Vol] 133 mg/dL High 70-100 [facility] Comment on above: Performed By: #### 3 0313 #### [facility] [address] [place] [address], [facility] PROTHROMBIN TIMEon INR Coag (PPP) [Relative time] 1.23 {INR} High 0.91-1.16 [facility] Comment on above: Order Comment: Yes: Add [...] 1995;108:231S-246S. Performed By: #### 8 5499 #### [facility] [address] [place] [address], [facility] PT Coag (PPP) [Time] 15.5 s High 12.3-14.8 [facility] Comment on above: Order Comment: Yes: Add to Previous draw if ablePt is in [place] Result Comment: ALL RESULTS MUST BE INTERPRETED WITH RESPECT TO BLOOD DRAWING ARTIFACT OR DILUTION ERROR OF ANTICOAGULANT AT THE TIME OF SAMPLING. Performed By: #### 8 5499 #### [facility] [address] [place] [address], [facility] RBC'S 1 UNITon 04-03-2022 CROSSMATCH INTERP 1 COMP Normal [facility] Comment on above: Performed By: #### 8 [id number] #### [facility] [address] [facility] [place] [address], [facility] PRODUCT CODE 1 E0336 Normal [facility] Comment on above: Performed By: #### 8 5499 #### [facility] [address] [facility] [place] [address], [facility] PRODUCT STATUS 1 RE Normal [facility] Comment on above: Result Comment: Resu lt changed by IF on 04/07/2022 06:43. The previous value was XM. Performed By: #### 8 [id number] #### [facility] [address] [facility] [place] [address], [facility] UNIT ABO 1 A Normal [facility] Comment on above: Performed By: #### 8 5499 #### [facility] [address] [facility] [place] [address], [facility] UNIT ID 1 [id number] Normal [facility] Comment on above: Performed By: #### 8 5499 #### [facility] [address] [place] [address], [facility] UNIT RH 1 Negative Normal [facility] Comment on above: Performed By: #### 8 5499 #### [facility] [address] [place] [address], [facility] RBC'S 2 UNITSon 04-03-2022 CROSSMATCH INTERP 1 COMP Normal [facility] Comment on above: Performed By: #### 8 [id number] #### [facility] [address] [place] [address], [facility] CROSSMATCH INTERP 2 COMP Normal [facility] Comment on above: Performed By: #### 8 5499 #### [facility] [address] [place] [address], [facility] PRODUCT CODE 1 E0686 Normal [facility] Comment on above: Performed By: #### 8 5499 #### [facility] [address] [place] [address], [facility] PRODUCT CODE 2 E0336 Normal [facility] Comment on above: Performed By: #### 8 5499 #### [facility] [address] [place] [address], [facility] PRODUCT STATUS 1 PT Normal [facility] Comment on above: Result Comment: Resu lt changed by IF on 04/03/2022 10:21. The previous value was XM. Result changed by IF on 04/04/2022 00:30. The previous value was IS. Performed By: #### 8 [id number] #### [facility] [address] [place] [address], [facility] PRODUCT STATUS 2 PT Normal [facility] Comment on above: Result Comment: Resu lt changed by IF on 04/03/2022 10:21. The previous value was XM. Result changed by IF on 04/03/2022 11:27. The previous value was IS. Result changed by IF on 04/03/2022 12:23. The previous value was XM. Result changed by IF on 04/04/2022 00:30. The previous value was IS. Performed By: #### 8 [id number] #### [facility] [address] [place] [address], [facility] UNIT ABO 1 A Normal [facility] Comment on above: Performed By: #### 8 [id number] #### [facility] [address] [place] [address], [place] UNIT ABO 2 A Normal [facility] Comment on above: Performed By: #### 8 [id number] #### [facility] [address] [place] [address], [facility] UNIT ID 1 [id number] Normal The [facility] Comment on above: Performed By: #### 8 [id number] #### [facility] [address] [place] [address], [facility] UNIT ID 2 [id number] Normal [facility] Comment on above: Performed By: #### 8 [id number] #### [facility] [address] [place] [address], [facility] UNIT RH 1 Negative Normal [facility] Comment on above: Performed By: #### 8 [id number] #### [facility] [address] [place] [address], [place] UN[place] RH 2 Negative Normal [facility] Comment on above: Performed By: #### 8 [id number] #### [facility] [address] [place] [address], [facility] TYPE AND SCREENon 04-03-2022 ABO INTERPRETATION AB Normal [facility] Comment on above: Performed By: #### 8 [id number] #### [facility] [address] [place] [address], [place] RH INTERPRETATION Negative Normal The [facility] Comment on above: Performed By: #### 8 [id number] #### [facility] [address] [place] [address], [place] UFH HEPARIN ASSAYon 04-03-20 22 UNFRACTIONATED HEPARIN 0.28 IU/mL Low 0.30-0.70 The [facility] Comment on above: Result Comment: Kristy roxaban and Apixaban will interfere with the anti Xa assay used to monitor UFH and LMWH. Performed By: #### 8 [id number] #### [facility] [address] [place] [address], [facility] VENOUS BLOOD GAS W/COOXon BASE EXCESS -3 mmol/L Normal The [facility] Comment on above: Order Comment: RESUL TS CHECKED AND CALLED. ACCURATELY READ BACK BY AYANNA PHIPPS Performed By: #### 8 [id number] #### [facility] [address] [facility] [place] [address], [facility] COHB 2 % Normal The [facility] Comment on above: Order Comment: RESUL TS CHECKED AND CALLED. ACCURATELY READ BACK BY AYANNA PHIPPS Performed By: #### 8 [id number] #### [facility] [address] [place] [address], [facility] HCO3 (Bld) [Moles/Vol] 25 mmol/L Normal The [facility] Comment on above: Order Comment: RESUL TS CHECKED AND CALLED. ACCURATELY READ BACK BY AYANNA PHIPPS Performed By: #### 8 [id number] #### [facility] [address] [place] [address], [facility] METHB 0.3 % Normal The [facility] Comment on above: Order Comment: RESUL TS CHECKED AND CALLED. ACCURATELY READ BACK BY AYANNA PHIPPS Performed By: #### 8 [id number] #### [facility] [address] [place] [address], [facility] Oxygen (Bld) [Partial pressure] 31 mm[Hg] Low 35-45 The [facility] Comment on above: Order Comment: RESUL TS CHECKED AND CALLED. ACCURATELY READ BACK BY AYANNA PHIPPS Performed By: #### 8 [id number] #### [facility] [address] [place] [address], [facility] Oxygen saturation in Blood 38.0 % Low 65.0-75.0 [facility] Comment on above: Order Comment: RESUL TS CHECKED AND CALLED. ACCURATELY READ BACK BY AYANNA PHIPPS Performed By: #### 8 [id number] #### [facility] [address] [facility] [place] [address], [facility] PCO2 53 mmHg Normal [facility] Comment on above: Order Comment: RESUL TS CHECKED AND CALLED. ACCURATELY READ BACK BY AYANNA PHIPPS Performed By: #### 8 [id number] #### [facility] [address] [facility] [address] pH (Bld) 7.28 [pH] Low 7.31-7.41 [facility] Comment on above: Order Comment: RESUL TS CHECKED AND CALLED. ACCURATELY READ BACK BY AYANNA PHIPPS Performed By: #### 8 [id number] #### [facility] [address] [facility]. [address] THB 9.2 g/dL Normal The [facility] Comment on above: Order Comment: RESUL TS CHECKED AND CALLED. ACCURATELY READ BACK BY AYANNA PHIPPS Performed By: #### 8 [id number] #### [facility] [address] BASIC METABOLIC PANELon 05- Calcium [Mass/Vol] 8.5 mg/dL Low 8.6-10.3 The [facility] Comment on above: Order Comment: The A ptima SARS-CoV-2 assay is a nucleic acid amplification test intended for the qualitative detection of RNA from SARS-CoV-2 isolated and purified from nasopharyngeal (CONSTRUCTION LABORER),oropharyngeal (OP), nasal swab, sputum, and bronchoalveolar lavage (BAL) specimens from patients with signs and symptoms of infection who are suspected of COVID-19. Results are for the identification of SARS-CoV-2 RNA. The SARS-CoV-2 RNA is generally detectable during the acute phase of infection. The Aptima SARS-CoV-2 Assay on the [employer] and [employer] Fusion system is intended for use by laboratory personnel specifically instructed and trained in the operation of the [place] [employer] [place] [employer] system. The Aptima SARS-CoV-2 assay is [...] information. Performed By: #### 3 1792 #### [facility] [address] [place] [address], [facility] Chloride [Moles/Vol] 104 mmol/L Normal 98-107 The [facility] Comment on above: Order Comment: The A ptima SARS-CoV-2 assay is a nucleic acid amplification test intended for the qualitative detection of RNA from SARS-CoV-2 isolated and purified from nasopharyngeal (CONSTRUCTION LABORER),oropharyngeal (OP), nasal swab, sputum, and bronchoalveolar lavage (BAL) specimens from patients with signs and symptoms of infection who are suspected of COVID-19. Results are for the identification of SARS-CoV-2 RNA. The SARS-CoV-2 RNA is generally detectable during the acute phase of infection. The Aptima SARS-CoV-2 Assay on the [place] [employer] [place] [employer] system is intended for use by laboratory personnel specifically instructed and trained in the operation of the [place] [employer] [place] [employer] system. The Aptima SARS-CoV-2 assay is [...] and epidemiological information. Performed By: #### 3 1372 #### [facility] [address] [place] [address], [place] CO2 [Moles/Vol] 23 mmol/L Normal 21-31 [facility] Comment on above: Order Comment: The A ptima SARS-CoV-2 assay is a nucleic acid amplification test intended for the qualitative detection of RNA from SARS-CoV-2 isolated and purified from nasopharyngeal (CONSTRUCTION LABORER),oropharyngeal (OP), nasal swab, sputum, and bronchoalveolar lavage (BAL) specimens from patients with signs and symptoms of infection who are suspected of COVID-19. Results are for the identification of SARS-CoV-2 RNA. The SARS-CoV-2 RNA is generally detectable during the acute phase of infection. The Aptima SARS-CoV-2 Assay on the [place] [employer] [place] [employer] system is intended for use by laboratory personnel specifically instructed and trained in the operation of the [place] [employer] [place] [employer] system. The Aptima SARS-CoV-2 assay is [...] information. Performed By: #### 3 1792 #### [address] Creatinine [Mass/Vol] 1.00 mg/dL Normal 0.60-1.20 [facility] Comment on above: Order Comment: The A ptima SARS-CoV-2 assay is a nucleic acid amplification test intended for the qualitative detection of RNA from SARS-CoV-2 isolated and purified from nasopharyngeal (CONSTRUCTION LABORER),oropharyngeal (OP), nasal swab, sputum, and bronchoalveolar lavage (BAL) specimens from patients with signs and symptoms of infection who are suspected of COVID-19. Results are for the identification of SARS-CoV-2 RNA. The SARS-CoV-2 RNA is generally detectable during the acute phase of infection. The Aptima SARS-CoV-2 Assay on the [place] [employer] [place] [employer] system is intended for use by laboratory personnel specifically instructed and trained in the operation of the [place] [employer] [place] [employer] system. The Aptima SARS-CoV-2 assay is [...] information. Performed By: #### 3 1792 #### [facility] [address] [facility] [place], [place] [id number] [place] [address] eGFR- non- 53 ml/min/1.73sq m Abnormal >60 The [facility] Comment on above: Order Comment: The A ptima SARS-CoV-2 assay is a nucleic acid amplification test intended for the qualitative detection of RNA from SARS-CoV-2 isolated and purified from nasopharyngeal (CONSTRUCTION LABORER),oropharyngeal (OP), nasal swab, sputum, and bronchoalveolar lavage (BAL) specimens from patients with signs and symptoms of infection who are suspected of COVID-19. Results are for the identification of SARS-CoV-2 RNA. The SARS-CoV-2 RNA is generally detectable during the acute phase of infection. The Aptima SARS-CoV-2 Assay on the [employer] and [place] [employer] system is intended for use by laboratory personnel specifically instructed and trained in the operation of the [place] [employer] [place] [employer] system. The Aptima SARS-CoV-2 assay is [...] over 70 years Performed By: #### 3 3216 #### [facility] [address] GFR/1.73 sq M.predicted among blacks MDRD (S/P/Bld) [Vol rate/Area] mL/min/{1.73_m2} Normal >60 The [facility] Comment on above: Order Comment: The A ptima SARS-CoV-2 assay is a nucleic acid amplification test intended for the qualitative detection of RNA from SARS-CoV-2 isolated and purified from nasopharyngeal (CONSTRUCTION LABORER),oropharyngeal (OP), nasal swab, sputum, and bronchoalveolar lavage (BAL) specimens from patients with signs and symptoms of infection who are suspected of COVID-19. Results are for the identification of SARS-CoV-2 RNA. The SARS-CoV-2 RNA is generally detectable during the acute phase of infection. The Aptima SARS-CoV-2 Assay on the [place] [employer] [place] [employer] system is intended for use by laboratory personnel specifically instructed and trained in the operation of the [place] [employer] [place] [employer] system. The Aptima SARS-CoV-2 assay is [...] years Performed By: #### 3 1792 #### [facility] [address] [facility] [place] [address] Glucose [Mass/Vol] 87 mg/dL Normal 70-100 [facility] Comment on above: Order Comment: The A ptima SARS-CoV-2 assay is a nucleic acid amplification test intended for the qualitative detection of RNA from SARS-CoV-2 isolated and purified from nasopharyngeal (CONSTRUCTION LABORER),oropharyngeal (OP), nasal swab, sputum, and bronchoalveolar lavage (BAL) specimens from patients with signs and symptoms of infection who are suspected of COVID-19. Results are for the identification of SARS-CoV-2 RNA. The SARS-CoV-2 RNA is generally detectable during the acute phase of infection. The Aptima SARS-CoV-2 Assay on the [place] [employer] [place] [employer] system is intended for use by laboratory personnel specifically instructed and trained in the operation of the [place] [employer] [place] [employer] system. The Aptima SARS-CoV-2 assay is [...] information. Performed By: #### 3 1792 #### [facility] [address] [facility] [place] [address], [facility] Potassium [Moles/Vol] 4.1 mmol/L Normal 3.5-5.1 [facility] Comment on above: Order Comment: The A ptima SARS-CoV-2 assay is a nucleic acid amplification test intended for the qualitative detection of RNA from SARS-CoV-2 isolated and purified from nasopharyngeal (CONSTRUCTION LABORER),oropharyngeal (OP), nasal swab, sputum, and bronchoalveolar lavage (BAL) specimens from patients with signs and symptoms of infection who are suspected of COVID-19. Results are for the identification of SARS-CoV-2 RNA. The SARS-CoV-2 RNA is generally detectable during the acute phase of infection. The Aptima SARS-CoV-2 Assay on the [place] [employer] [place] [employer] system is intended for use by laboratory personnel specifically instructed and trained in the operation of the [place] [employer] [place] [employer] system. The Aptima SARS-CoV-2 assay is [...] and epidemiological information. Performed By: #### 3 9512 #### [facility] [address] [place] [address], [facility] Sodium [Moles/Vol] 135 mmol/L Low 136-145 [facility] Comment on above: Order Comment: The A ptima SARS-CoV-2 assay is a nucleic acid amplification test intended for the qualitative detection of RNA from SARS-CoV-2 isolated and purified from nasopharyngeal (CONSTRUCTION LABORER),oropharyngeal (OP), nasal swab, sputum, and bronchoalveolar lavage (BAL) specimens from patients with signs and symptoms of infection who are suspected of COVID-19. Results are for the identification of SARS-CoV-2 RNA. The SARS-CoV-2 RNA is generally detectable during the acute phase of infection. The Aptima SARS-CoV-2 Assay on the [place] [employer] [place] [employer] system is intended for use by laboratory personnel specifically instructed and trained in the operation of the [place] [employer] [place] [employer] system. The Aptima SARS-CoV-2 assay is [...] information. Performed By: #### 3 1792 #### [address] Urea nitrogen [Mass/Vol] 17 mg/dL Normal 7-25 The [facility] Comment on above: Order Comment: The A ptima SARS-CoV-2 assay is a nucleic acid amplification test intended for the qualitative detection of RNA from SARS-CoV-2 isolated and purified from nasopharyngeal (CONSTRUCTION LABORER),oropharyngeal (OP), nasal swab, sputum, and bronchoalveolar lavage (BAL) specimens from patients with signs and symptoms of infection who are suspected of COVID-19. Results are for the identification of SARS-CoV-2 RNA. The SARS-CoV-2 RNA is generally detectable during the acute phase of infection. The Aptima SARS-CoV-2 Assay on the [place] [employer] [place] [employer] system is intended for use by laboratory personnel specifically instructed and trained in the operation of the [place] [employer] [place] [employer] system. The Aptima SARS-CoV-2 assay is [...] information. Performed By: #### 3 1792 #### [facility] [address] [place] [address], [facility] CALCIUM IONIZED CBGLon 04-02 IONIZED CALCIUM 1.15 mmol/L Normal 1.12-1.30 The [facility] Comment on above: Performed By: #### 8 [id number] #### [facility] [address] [place] [address], [facility] CBC W/DIFFon 04-02-2022 ABS IMM GRANS 0.5 10*3/uL High 0.0-0.2 The [facility] Comment on above: Order Comment: No: D o not add to previous draw Performed By: #### 8 [id number] #### [facility] [address] [facility] [place] [address], [facility] ABS NEUTROPHILS 27.8 10*3/uL High 1.6-7.6 The [facility] Comment on above: Order Comment: No: D o not add to previous draw Performed By: #### 8 [id number] #### [facility] [address] [place] [address], [facility] Basophils (Bld) [#/Vol] 0.2 10*3/uL Normal 0.0-0.2 The [facility] Comment on above: Order Comment: No: D o not add to previous draw Performed By: #### 8 [id number] #### [facility] [address] [place] [address], [facility] Basophils/100 WBC (Bld) 0.7 % Normal 0.0-1.0 The [facility] Comment on above: Order Comment: No: D o not add to previous draw Performed By: #### 8 [id number] #### [facility] [address] [place] [address], [facility] Eosinophils (Bld) [#/Vol] 0.0 10*3/uL Normal 0.0-0.5 The [facility] Comment on above: Order Comment: No: D o not add to previous draw Performed By: #### 8 [id number] #### [facility] [address] [place] [id number], [facility] Eosinophils/100 WBC (Bld) 0.1 % Normal 0.0-6.0 [facility] Comment on above: Order Comment: No: D o not add to previous draw Performed By: #### 8 [id number] #### [facility] [address] [facility] [place] [address], [facility] Erythrocyte distribution width (RBC) [Ratio] 17.5 % High 11.5-15.0 The [facility] Comment on above: Order Comment: No: D o not add to previous draw Performed By: #### 8 [id number] #### [facility] [address] [place] [address], [facility] Hematocrit (Bld) [Volume fraction] 39.1 % Normal 36.0-45.0 The [facility] Comment on above: Order Comment: No: D o not add to previous draw Performed By: #### 8 [id number] #### [facility] [address] [facility] [place] [address], [facility] Hemoglobin (Bld) [Mass/Vol] 12.1 g/dL Normal 12.0-15.0 The [facility] Comment on above: Order Comment: No: D o not add to previous draw Performed By: #### 8 [id number] #### [facility] [address] [facility] [place] [id number], [facility] IMMATURE GRANS 1.8 % High 0.0-1.0 The [facility] Comment on above: Order Comment: No: D o not add to previous draw Performed By: #### 8 [id number] #### [facility] [address] [place] [address], [facility] Lymphocytes (Bld) [#/Vol] 1.1 10*3/uL Low 1.2-4.0 The [facility] Comment on above: Order Comment: No: D o not add to previous draw Performed By: #### 8 [id number] #### [facility] [address] [facility] [place] [address], [facility] Lymphocytes/100 WBC (Bld) 3.5 % Low 20.0-45.0 The [facility] Comment on above: Order Comment: No: D o not add to previous draw Performed By: #### 8 [id number] #### [facility] [address] [place] [address], [facility] MCH (RBC) [Entitic mass] 30.1 pg Normal 27.0-33.0 The [facility] Comment on above: Order Comment: No: D o not add to previous draw Performed By: #### 8 [id number] #### [facility] [address] [place] [address], [facility] MCHC (RBC) [Mass/Vol] 30.9 g/dL Low 32.0-35.0 The [facility] Comment on above: Order Comment: No: D o not add to previous draw Performed By: #### 8 [id number] #### [facility] [address] [place] [address], [facility] MCV (RBC) [Entitic vol] 97.3 fL Normal 82.0-98.0 The [facility] Comment on above: Order Comment: No: D o not add to previous draw Performed By: #### 8 [id number] #### [facility] [address] [place] [address], [facility] Monocytes (Bld) [#/Vol] 0.6 10*3/uL Normal 0.1-1.0 The [facility] Comment on above: Order Comment: No: D o not add to previous draw Performed By: #### 8 [id number] #### [facility] [address] [place] [address], [place] MONOS 1.8 % Low 5.0-12.0 The [facility] Comment on above: Order Comment: No: D o not add to previous draw Performed By: #### 8 5499 #### [facility] [address] [place] [address], [place] Neutrophils/100 WBC (Bld) 92.1 % High 40.0-72.0 The [facility] Comment on above: Order Comment: No: D o not add to previous draw Performed By: #### 8 [id number] #### [facility] [address] [place] [address], [facility] Nucleated RBC/100 WBC (Bld) [Ratio] 0 % Normal 0-0 The [facility] Comment on above: Order Comment: No: D o not add to previous draw Performed By: #### 8 [id number] #### [facility] [address] [place] [address], [place] PLAT CNT 370 10*3/uL Normal 150-400 The [facility] Comment on above: Order Comment: No: D o not add to previous draw Performed By: #### 8 [id number] #### [facility] [address] [place] [address], [place] RBC (Bld) [#/Vol] 4.02 10*6/uL Normal 3.80-5.00 The [facility] Comment on above: Order Comment: No: D o not add to previous draw Performed By: #### 8 [id number] #### [facility] [address] [place] [address], [place] WBC (Bld) [#/Vol] 30.18 10*3/uL High 4.00-10.60 The [facility] Comment on above: Order Comment: No: D o not add to previous draw Performed By: #### 8 [id number] #### [facility] [address] [place] [address], [place] ERCPon 05-16-2022 ERCP [facility] Department of Radiology [address] [place] [address] ======== Patient Name: MARÍA ELENA TAFOYA : 1940 Sex: F Age: Race: NA Pt. Location: [id number] Patient Status: I Ordered Date: 04/02/2022 3:40:00 [...] details. Electronically signed: Brooke Verduzco. Transcribed by: [email or web address], User Resident: Electronically Signed by: BROOKE VERDUZCO @ 04/03/2022 09:48 AM Normal The [facility] Comment on above: Order Comment: Check Stent Position Endoscopy Reporton Endoscopy Report MR#: [id number] [facility] Pt. Name: María Elena aTfoya Surgery Date: 04/02/2022 Room #: [id number] Date of : 1940 PROCEDURE NOTE ATTENDING: Elizabeth Olivo M.D. WET END OPERATOR: Felipe Gallo MD. PROCEDURE: ERCP with [...] Gallo MD Date Trans: 04/02/2022 07:10 P/mmo [id number] cc: Bennie Albright M.D. [address] [facility] [address] Normal The [facility] LIVER BATTERYon 04-02-2022 Albumin [Mass/Vol] 3.0 g/dL Low 3.5-5.7 [facility] Comment on above: Order Comment: The A ptima SARS-CoV-2 assay is a nucleic acid amplification test intended for the qualitative detection of RNA from SARS-CoV-2 isolated and purified from nasopharyngeal (CONSTRUCTION LABORER),oropharyngeal (OP), nasal swab, sputum, and bronchoalveolar lavage (BAL) specimens from patients with signs and symptoms of infection who are suspected of COVID-19. Results are for the identification of SARS-CoV-2 RNA. The SARS-CoV-2 RNA is generally detectable during the acute phase of infection. The Aptima SARS-CoV-2 Assay on the [employer] and [employer] Fusion system is intended for use by laboratory personnel specifically instructed and trained in the operation of the [place] and [employer] Fusion system. The Aptima SARS-CoV-2 assay is [...] information. Performed By: #### 3 1792 #### [facility] [address] ALKALINE PHOSPH 174 IU/L High 34-104 [facility] Comment on above: Order Comment: The A ptima SARS-CoV-2 assay is a nucleic acid amplification test intended for the qualitative detection of RNA from SARS-CoV-2 isolated and purified from nasopharyngeal (CONSTRUCTION LABORER),oropharyngeal (OP), nasal swab, sputum, and bronchoalveolar lavage (BAL) specimens from patients with signs and symptoms of infection who are suspected of COVID-19. Results are for the identification of SARS-CoV-2 RNA. The SARS-CoV-2 RNA is generally detectable during the acute phase of infection. The Aptima SARS-CoV-2 Assay on the [employer] and [employer] Fusion system is intended for use by laboratory personnel specifically instructed and trained in the operation of the [place] [employer] [place] [employer] system. The Aptima SARS-CoV-2 assay is [...] information. Performed By: #### 3 1792 #### [facility] [address] ALT [Catalytic activity/Vol] 21 U/L Normal 7-52 [facility] Comment on above: Order Comment: The A ptima SARS-CoV-2 assay is a nucleic acid amplification test intended for the qualitative detection of RNA from SARS-CoV-2 isolated and purified from nasopharyngeal (CONSTRUCTION LABORER),oropharyngeal (OP), nasal swab, sputum, and bronchoalveolar lavage (BAL) specimens from patients with signs and symptoms of infection who are suspected of COVID-19. Results are for the identification of SARS-CoV-2 RNA. The SARS-CoV-2 RNA is generally detectable during the acute phase of infection. The Aptima SARS-CoV-2 Assay on the [place] [employer] [place] [employer] system is intended for use by laboratory personnel specifically instructed and trained in the operation of the [place] [employer] [place] [employer] system. The Aptima SARS-CoV-2 assay is [...] information. Performed By: #### 3 1792 #### [facility] [address] AST [Catalytic activity/Vol] 9 U/L Low 13-39 The [facility] Comment on above: Order Comment: The A ptima SARS-CoV-2 assay is a nucleic acid amplification test intended for the qualitative detection of RNA from SARS-CoV-2 isolated and purified from nasopharyngeal (CONSTRUCTION LABORER),oropharyngeal (OP), nasal swab, sputum, and bronchoalveolar lavage (BAL) specimens from patients with signs and symptoms of infection who are suspected of COVID-19. Results are for the identification of SARS-CoV-2 RNA. The SARS-CoV-2 RNA is generally detectable during the acute phase of infection. The Aptima SARS-CoV-2 Assay on the [place] [employer] [place] [employer] system is intended for use by laboratory personnel specifically instructed and trained in the operation of the [place] [employer] [place] [employer] system. The Aptima SARS-CoV-2 assay is [...] and epidemiological information. Performed By: #### 3 8472 #### [facility] 3000 [facility] [place], [place] [id number] [place] [address] Bilirubin [Mass/Vol] 1.9 mg/dL High 0.3-1.0 The [facility] Comment on above: Order Comment: The A ptima SARS-CoV-2 assay is a nucleic acid amplification test intended for the qualitative detection of RNA from SARS-CoV-2 isolated and purified from nasopharyngeal (CONSTRUCTION LABORER),oropharyngeal (OP), nasal swab, sputum, and bronchoalveolar lavage (BAL) specimens from patients with signs and symptoms of infection who are suspected of COVID-19. Results are for the identification of SARS-CoV-2 RNA. The SARS-CoV-2 RNA is generally detectable during the acute phase of infection. The Aptima SARS-CoV-2 Assay on the [employer] Fusion system is intended for use by laboratory personnel specifically instructed and trained in the operation of the [place] [employer] [place] [employer] system. The Aptima SARS-CoV-2 assay is [...] information. Performed By: #### 3 1792 #### [facility] [address] Bilirubin.direct [Mass/Vol] 0.8 mg/dL High 0.0-0.2 The [facility] Comment on above: Order Comment: The A ptima SARS-CoV-2 assay is a nucleic acid amplification test intended for the qualitative detection of RNA from SARS-CoV-2 isolated and purified from nasopharyngeal (CONSTRUCTION LABORER),oropharyngeal (OP), nasal swab, sputum, and bronchoalveolar lavage (BAL) specimens from patients with signs and symptoms of infection who are suspected of COVID-19. Results are for the identification of SARS-CoV-2 RNA. The SARS-CoV-2 RNA is generally detectable during the acute phase of infection. The Aptima SARS-CoV-2 Assay on the [place] [employer] [place] [employer] system is intended for use by laboratory personnel specifically instructed and trained in the operation of the [place] [employer] [place] [employer] system. The Aptima SARS-CoV-2 assay is [...] information. Performed By: #### 3 1792 #### [facility] [address] [employer] Protein [Mass/Vol] 6.1 g/dL Normal 6.0-8.3 The [facility] Comment on above: Order Comment: The A ptima SARS-CoV-2 assay is a nucleic acid amplification test intended for the qualitative detection of RNA from SARS-CoV-2 isolated and purified from nasopharyngeal (CONSTRUCTION LABORER),oropharyngeal (OP), nasal swab, sputum, and bronchoalveolar lavage (BAL) specimens from patients with signs and symptoms of infection who are suspected of COVID-19. Results are for the identification of SARS-CoV-2 RNA. The SARS-CoV-2 RNA is generally detectable during the acute phase of infection. The Aptima SARS-CoV-2 Assay on the [place] [employer] [place] [employer] system is intended for use by laboratory personnel specifically instructed and trained in the operation of the [place] [employer] [place] [employer] system. The Aptima SARS-CoV-2 assay is [...] information. Performed By: #### 3 1792 #### [facility] [address] [place] [address], [facility] MAGNESIUM BLOOD 04-02-2022 Magnesium [Mass/Vol] 1.3 mg/dL Low 1.9-2.7 The [facility] Comment on above: Order Comment: The A ptima SARS-CoV-2 assay is a nucleic acid amplification test intended for the qualitative detection of RNA from SARS-CoV-2 isolated and purified from nasopharyngeal (CONSTRUCTION LABORER),oropharyngeal (OP), nasal swab, sputum, and bronchoalveolar lavage (BAL) specimens from patients with signs and symptoms of infection who are suspected of COVID-19. Results are for the identification of SARS-CoV-2 RNA. The SARS-CoV-2 RNA is generally detectable during the acute phase of infection. The Aptima SARS-CoV-2 Assay on the [employer] system is intended for use by laboratory personnel specifically instructed and trained in the operation of the [place] [employer] Fusion system. The Aptima SARS-CoV-2 assay is [...] information. Performed By: #### 3 1792 #### [facility] [address] [place] [address], [facility] PHOSPHORUS BLOOD Phosphate [Mass/Vol] 2.9 mg/dL Normal 2.5-5.0 The [facility] Comment on above: Order Comment: The A ptima SARS-CoV-2 assay is a nucleic acid amplification test intended for the qualitative detection of RNA from SARS-CoV-2 isolated and purified from nasopharyngeal (CONSTRUCTION LABORER),oropharyngeal (OP), nasal swab, sputum, and bronchoalveolar lavage (BAL) specimens from patients with signs and symptoms of infection who are suspected of COVID-19. Results are for the identification of SARS-CoV-2 RNA. The SARS-CoV-2 RNA is generally detectable during the acute phase of infection. The Aptima SARS-CoV-2 Assay on the [place] [employer] [place] [employer] system is intended for use by laboratory personnel specifically instructed and trained in the operation of the [place] [employer] [place] [employer] system. The Aptima SARS-CoV-2 assay is [...] information. Performed By: #### 3 1792 #### [facility] [address] POC GLUCOSE LABon 04-02-2022 Glucose [Mass/Vol] 126 mg/dL High 70-100 The [facility] Comment on above: Performed By: #### 8 [id number] #### [facility] 3000 [place] [address], [facility] Glucose [Mass/Vol] 102 mg/dL High 70-100 The [facility] Comment on above: Performed By: #### 8 5499 ####[facility] [place] [address], [facility] Glucose [Mass/Vol] 123 mg/dL High 70-100 The [facility] Comment on above: Performed By: #### 8 5499 #### [facility] [address] [place] [address], [facility] Glucose [Mass/Vol] 96 mg/dL Normal 70-100 [facility] Comment on above: Performed By: #### 8 5499 #### [facility] 3000 [place] [address], [facility] POC SARS COV2 IDon 2 SARS-CoV-2 (COVID-19) RNA MATTHEW+probe Ql (Unsp spec) Negative Normal NEGATIVE The [facility] Comment on above: Result Comment: ID N [...] Accreditation. Performed By: #### 3 1921 #### [address] PROTHROMBIN TIMEon 2 INR Coag (PPP) [Relative time] 1.21 {INR} High 0.91-1.16 [facility] Comment on above: Order Comment: No: D [...] 1995;[id number]. Performed By: #### 8 5499 #### [facility] 3000 [facility] [address] PT Coag (PPP) [Time] 15.3 s High 12.3-14.8 [facility] Comment on above: Order Comment: No: D o not add to previous draw Result Comment: ALL RESULTS MUST BE INTERPRETED WITH RESPECT TO BLOOD DRAWING ARTIFACT OR DILUTION ERROR OF ANTICOAGULANT AT THE TIME OF SAMPLING. Performed By: #### 8 5499 #### [facility] [address] UFH HEPARIN ASSAYon 04-02-20 22 UNFRACTIONATED HEPARIN 0.96 IU/mL Critically high 0.30-0.70 [facility] Comment on above: Result Comment: Resu lt checked and called. Accurately read back by Eyal Griffin RN at 0543 Rivaroxaban and Apixaban will interfere with the anti Xa assay used to monitor UFH and LMWH. Performed By: #### 8 5499 #### [facility] 3000 [facility]. [address] *SARS-CoV-2 COVID-19on 04-01 SARS-CoV-2 (COVID-19) RNA MATTHEW+probe Ql (Unsp spec) Not detected Normal Not Detected [facility] Comment on above: Order Comment: The A ptima SARS-CoV-2 assay is a nucleic acid amplification test intended for the qualitative detection of RNA from SARS-CoV-2 isolated and purified from nasopharyngeal (CONSTRUCTION LABORER),oropharyngeal (OP), nasal swab, sputum, and bronchoalveolar lavage (BAL) specimens from patients with signs and symptoms of infection who are suspected of COVID-19. Results are for the identification of SARS-CoV-2 RNA. The SARS-CoV-2 RNA is generally detectable during the acute phase of infection. The Aptima SARS-CoV-2 Assay on the [place] [employer] [place] [employer] system is intended for use by laboratory personnel specifically instructed and trained in the operation of the [place] [employer] [place] [employer] system. The Aptima SARS-CoV-2 assay is [...] information. Performed By: #### 3 1792 #### [facility] 3000 [facility]. [address] AMMONIAon 04-01-2022 Ammonia (P) [Mass/Vol] ug/dL Critically low 11-32 The [facility] Comment on above: Performed By: #### A MM ####[facility] Rog[address] [place], [place] [address]DrLydia Barragan APTTon 04-01-2022 aPTT Coag (Bld) [Time] 35.4 s High 25.0-35.0 The [facility] Comment on above: Order Comment: No: D [...] PURPOSE. Performed By: #### 8 [id number] #### [facility] 3000 [facility]. [address] CBC AUTO DIFFon 04-01-2022 BASO # 0.2 103/ul Critically high 0.0-0.[address] [facility] Comment on above: Performed By: #### C BC ####[facility] [address] [place] [address]DrLydia Barragan Basophils/100 WBC (Bld) 0.6 % Normal 0.2-2.0 [facility] Comment on above: Performed By: #### C BC ####[facility] Jeb[address] [place], [place] [address]DrLydia Barragan EO # 0.0 103/ul Normal 0.0-0.7 The [facility] Comment on above: Performed By: #### C BC ####[facility] [address] [place] [address]Dr. Bhavani Laurel Eosinophils/100 WBC (Bld) 0.1 % Critically low 0.9-7.0 The [facility] Comment on above: Performed By: #### C BC ####[facility] Vhipdtzing[address] [place], [place] [address]Dr. Jayceeroxi Laurel Erythrocyte distribution width (RBC) [Ratio] 17.8 % Critically high 11.0-15.0 [facility] Comment on above: Performed By: #### C BC ####[facility] Iqiwufwgxj[address] [place], [place] [address]Dr. Bhavani Barragan Hematocrit (Bld) [Volume fraction] 39.0 % Normal 36.0-48.0 [facility] Comment on above: Performed By: #### C BC ####[facility] J[address]we[address] [place], [place] [address]Dr. Bhavani Barragan Hemoglobin (Bld) [Mass/Vol] 11.9 g/dL Critically low 12.0-16.0 [facility] Comment on above: Performed By: #### C BC ####[facility] Vwk[address] [place], [place] [address]Dr. Bhavani Barragan IG # 0.74 10e3/ul Critically high 0.00-0.03 [facility] Comment on above: Performed By: #### C BC ####[facility] T[address] [place], [place] [address]Dr. Bhavani Barragan IG % 2.2 % Critically high 0.0-0.[address] [facility] Comment on above: Performed By: #### C BC ####[facility] H[address]vifrcd[address] [place], [place] [address]DrLydia Barragan LYMPH # 0.9 103/ul Critically low 1.2-3.8 The [facility] Comment on above: Performed By: #### C BC ####[facility] Mrkkwajrgn[address] [place], [place] [address]DrLydia Barragan Lymphocytes/100 WBC (Bld) 2.7 % Critically low 20.5-60.0 The [facility] Comment on above: Performed By: #### C BC ####[facility] [address] [place] [address]DrLydia Barragan MANUAL DIFF REQ NO Normal The [facility] Comment on above: Performed By: #### C BC ####[facility] [address] [place] [id number] Barragan MCH (RBC) [Entitic mass] 29.8 pg Normal 26.7-34.0 The [facility] Comment on above: Performed By: #### C BC ####[facility] Z[address]rel[address] [place], [place] [address]DrLydia Barragan MCHC (RBC) [Mass/Vol] 30.5 g/dL Normal 29.9-35.2 The [facility] Comment on above: Performed By: #### C BC ####[facility] [address] [place], [place] [address]DrLydia Barragan MCV (RBC) [Entitic vol] 97.5 fL Normal 81.0-99.0 The [facility] Comment on above: Performed By: #### C BC ####[facility] [address] [place], [place] [address]DrLydia Barragan MONO # 0.6 103/ul Normal 0.3-0.8 The [facility] Comment on above: Performed By: #### C BC ####[facility] [address] [place], [place] [address]DrLydia Barragan Monocytes/100 WBC (Bld) 1.7 % Normal 1.7-12.0 The [facility] Comment on above: Performed By: #### C BC ####[facility] Sp[address]af[address]as[address] [place], [place] [address]DrLydia Barragan NEUT # 30.7 103/ul Critically high 1.4-6.5 The [facility] Comment on above: Performed By: #### C BC ####[facility] C[address]zms[address] [place], [place] [address]DrLydia Barragan Neutrophils/100 WBC (Bld) 92.7 % Critically high 43.0-75.0 The [facility] Comment on above: Performed By: #### C BC ####[facility] [address] [place] [id number]. Bhavani Barragan Platelet mean volume (Bld) [Entitic vol] 9.8 fL Normal 9.5-13.5 The [facility] Comment on above: Performed By: #### C BC ####[facility] [address] [place] [id number]. Bhavani Barragan PLT 372 103/ul Normal 150-450 The [facility] Comment on above: Performed By: #### C BC ####[facility] [address]xs[address] [place] [id number]. Bhavani Barragan RBC 4.00 106/ul Critically low 4.20-5.[address] [facility] Comment on above: Performed By: #### C BC ####[facility] [address] [place] [id number]. Bhavani Barragan WBC 33.2 103/ul Critically high 4.0-11.0 The [facility] Comment on above: Performed By: #### C BC ####[facility] [address] [place] [id number]. Bhavani Barragan CBC W/DIFFon 04-01-2022 ABS IMM GRANS 0.7 10*3/uL High 0.0-0.2 The [facility] Comment on above: Order Comment: No: D o not add to previous draw Performed By: #### 8 5499 #### [facility] [address] [place] [address], [facility] ABS NEUTROPHILS 30.0 10*3/uL High 1.6-7.6 The [facility] Comment on above: Order Comment: No: D o not add to previous draw Performed By: #### 8 5499 #### [facility] [address] [place] [address], [place] Basophils (Bld) [#/Vol] 0.2 10*3/uL Normal 0.0-0.2 The [facility] Comment on above: Order Comment: No: D o not add to previous draw Performed By: #### 8 5499 #### [facility] [address] [place] [address], [facility] Basophils/100 WBC (Bld) 0.5 % Normal 0.0-1.0 [facility] Comment on above: Order Comment: No: D o not add to previous draw Performed By: #### 8 5499 #### [facility] [address] [place] [address], [facility] Eosinophils (Bld) [#/Vol] 0.0 10*3/uL Normal 0.0-0.5 [facility] Comment on above: Order Comment: No: D o not add to previous draw Performed By: #### 8 5499 #### [facility] [address] [place] [address], [facility] Eosinophils/100 WBC (Bld) 0.1 % Normal 0.0-6.0 [facility] Comment on above: Order Comment: No: D o not add to previous draw Performed By: #### 8 5499 #### [facility] [address] [facility] [place] [address], [facility] Erythrocyte distribution width (RBC) [Ratio] 18.3 % High 11.5-15.0 [facility] Comment on above: Order Comment: No: D o not add to previous draw Performed By: #### 8 5499 #### [facility] [address] [place] [address], [place] Hematocrit (Bld) [Volume fraction] 40.4 % Normal 36.0-45.0 [facility] Comment on above: Order Comment: No: D o not add to previous draw Performed By: #### 8 5499 #### [facility] [address] [place] [address], [facility] Hemoglobin (Bld) [Mass/Vol] 12.9 g/dL Normal 12.0-15.0 [facility] Comment on above: Order Comment: No: D o not add to previous draw Performed By: #### 8 5499 #### [facility] [address] [place] [address], [facility] IMMATURE GRANS 2.1 % High 0.0-1.0 The [facility] Comment on above: Order Comment: No: D o not add to previous draw Performed By: #### 8 5499 #### [facility] [address] [place] [address], [facility] Lymphocytes (Bld) [#/Vol] 0.8 10*3/uL Low 1.2-4.0 [facility] Comment on above: Order Comment: No: D o not add to previous draw Performed By: #### 8 5499 #### [facility] 3000 [facility] [place] [address], [facility] Lymphocytes/100 WBC (Bld) 2.6 % Low 20.0-45.0 [facility] Comment on above: Order Comment: No: D o not add to previous draw Performed By: #### 8 5499 #### [facility] 3000 [facility] [place] [address], [facility] MCH (RBC) [Entitic mass] 30.6 pg Normal 27.0-33.0 [facility] Comment on above: Order Comment: No: D o not add to previous draw Performed By: #### 8 5499 #### [facility] 3000 [facility] [place] [address], [facility] MCHC (RBC) [Mass/Vol] 31.9 g/dL Low 32.0-35.0 [facility] Comment on above: Order Comment: No: D o not add to previous draw Performed By: #### 8 5499 #### [facility] [address] [place] [id number], [facility] MCV (RBC) [Entitic vol] 96.0 fL Normal 82.0-98.0 [facility] Comment on above: Order Comment: No: D o not add to previous draw Performed By: #### 8 5499 #### [facility] [address] [place] [address], [facility] Monocytes (Bld) [#/Vol] 0.5 10*3/uL Normal 0.1-1.0 [facility] Comment on above: Order Comment: No: D o not add to previous draw Performed By: #### 8 5499 #### [facility] [address] [place] [id number], [facility] MONOS 1.7 % Low 5.0-12.0 [facility] Comment on above: Order Comment: No: D o not add to previous draw Performed By: #### 8 5499 #### [facility] [address] [place] [id number], [facility] Neutrophils/100 WBC (Bld) 93.0 % High 40.0-72.0 [facility] Comment on above: Order Comment: No: D o not add to previous draw Performed By: #### 8 5499 #### [facility] 3000 [facility] [place] [address], [facility] Nucleated RBC/100 WBC (Bld) [Ratio] 0 % Normal 0-0 [facility] Comment on above: Order Comment: No: D o not add to previous draw Performed By: #### 8 5499 #### [facility] [address] [place] [address], [facility] PLAT CNT 375 10*3/uL Normal 150-400 The [facility] Comment on above: Order Comment: No: D o not add to previous draw Performed By: #### 8 5499 #### [facility] [address] [place] [address], [facility] RBC (Bld) [#/Vol] 4.21 10*6/uL Normal 3.80-5.00 The [facility] Comment on above: Order Comment: No: D o not add to previous draw Performed By: #### 8 [id number] #### [facility] [address] [place] [address], [facility] WBC (Bld) [#/Vol] 32.19 10*3/uL High 4.00-10.60 [facility] Comment on above: Order Comment: No: D o not add to previous draw Performed By: #### 8 [id number] #### [facility] [address] [place] [address], [facility] COMP METABOLIC PANELon 04-01 Albumin [Mass/Vol] 3.1 g/dL Low 3.5-5.7 [facility] Comment on above: Order Comment: No: D o not add to previous draw Performed By: #### 2 2706 #### [facility] [address] [facility] [place] [address], [facility] ALKALINE PHOSPH 208 IU/L High 34-104 [facility] Comment on above: Order Comment: No: D o not add to previous draw Performed By: #### 2 2706 #### [facility] [address] [facility] [place] [address], [facility] ALT [Catalytic activity/Vol] 27 U/L Normal 7-52 [facility] Comment on above: Order Comment: No: D o not add to previous draw Performed By: #### 2 2706 #### [facility] [address] [facility] [place] [address], [facility] AST [Catalytic activity/Vol] 12 U/L Low 13-39 [facility] Comment on above: Order Comment: No: D o not add to previous draw Performed By: #### 2 2706 #### [facility] [address] [place] [address], [facility] Bilirubin [Mass/Vol] 1.8 mg/dL High 0.3-1.0 [facility] Comment on above: Order Comment: No: D o not add to previous draw Performed By: #### 2 2706 #### [facility] [address] [place] [address], [place] Calcium [Mass/Vol] 8.3 mg/dL Low 8.6-10.3 [facility] Comment on above: Order Comment: No: D o not add to previous draw Performed By: #### 2 2706 #### [facility] [address] [place] [address], [place] Chloride [Moles/Vol] 103 mmol/L Normal 98-107 [facility] Comment on above: Order Comment: No: D o not add to previous draw Performed By: #### 2 2706 #### [facility] [address] [place] [address], [place] CO2 [Moles/Vol] 20 mmol/L Low 21-31 [facility] Comment on above: Order Comment: No: D o not add to previous draw Performed By: #### 2 2706 #### [facility] [address] [place] [address], [place] Creatinine [Mass/Vol] 1.12 mg/dL Normal 0.60-1.20 [facility] Comment on above: Order Comment: No: D o not add to previous draw Performed By: #### 2 2706 #### [facility] [address] [place] [address], [facility] eGFR- 56 ml/min/1.73sq m Abnormal >60 The [facility] [facility] Comment on above: Order Comment: No: D o not add to previous draw Result Comment: Calc ulation may not be valid for patients over 70 years Performed By: #### 2 2706 #### [facility] [address] [place] [address], [place] eGFR- non- 47 ml/min/1.73sq m Abnormal >60 The [facility] Comment on above: Order Comment: No: D o not add to previous draw Result Comment: Calc ulation may not be valid for patients over 70 years Performed By: #### 2 2706 #### [facility] [address] [place] [address], [facility] Glucose [Mass/Vol] 110 mg/dL High 70-100 The [facility] Comment on above: Order Comment: No: D o not add to previous draw Performed By: #### 2 2706 #### [facility] [address] [place] [address], [facility] Potassium [Moles/Vol] 4.1 mmol/L Normal 3.5-5.1 The [facility] Comment on above: Order Comment: No: D o not add to previous draw Performed By: #### 2 2706 #### [facility] [address] [place] [address], [facility] Protein [Mass/Vol] 6.1 g/dL Normal 6.0-8.3 [facility] Comment on [facility]: Order Comment: No: D o not add to previous draw Performed By: #### 2 2706 #### [facility] [address] [place] [address], [facility] Sodium [Moles/Vol] 134 mmol/L Low 136-145 The [facility] Comment on above: Order Comment: No: D o not add to previous draw Performed By: #### 2 2706 #### [facility] [address] [place] [address], [facility] Urea nitrogen [Mass/Vol] 21 mg/dL Normal 7-25 The [facility] Comment on above: Order Comment: No: D o not add to previous draw Performed By: #### 2 2706 #### [facility] [address] [place] [address], [place] DIGOXINon 04-01-2022 Digoxin [Mass/Vol] 0.6 ng/mL Low 0.7-2.0 The [facility] Comment on above: Performed By: #### 2 0246 #### [facility] [address] [place] [address], [place] DIRECT BILIon 04-01-2022 Bilirubin.direct [Mass/Vol] 0.7 mg/dL High 0.0-0.2 [facility] Comment on above: Order Comment: No: D o not add to previous draw Performed By: #### 2 2706 #### [facility] [address] [place] [address], [place] LIPASEon 04-01-2022 Lipase [Catalytic activity/Vol] 2234.0 U/L Critically high 73.0-393.0 [facility] Comment on above: Performed By: #### L IPA, CMP ####[facility] [place] [address] [place] [id number]. Bhavani Barragan LIPASE BLOODon 04-01-2022 LIPASE 354 Units/L High 11-82 The [facility] Comment on above: Order Comment: No: D o not add to previous draw Performed By: #### 2 2706 #### [facility] [address] [place] [address], [place] POC GLUCOSE LABon 04-01-2022 Glucose [Mass/Vol] 114 mg/dL High 70-100 [facility] Comment on above: Performed By: #### 8 5499 #### [facility] [address] [place] [address], [place] Glucose [Mass/Vol] 113 mg/dL High 70-100 [facility] Comment on above: Performed By: #### 8 5499 #### [facility] [address] [place] [address], [place] Glucose [Mass/Vol] 101 mg/dL High 70-100 [facility] Comment on above: Performed By: #### 3 0313 #### [facility] [address] [place] [address], [place] PROF 14(COMP METB)on 022 Albumin [Mass/Vol] 2.0 g/dL Critically low 3.4-5.0 [facility] Comment on above: Performed By: #### L IPA, CMP ####[facility] [place] [address] [place] [address]Dr. Bhavani Barragan Albumin/Globulin [Mass ratio] 0.5 {ratio} Normal [facility] Comment on above: Performed By: #### L IPA, CMP ####[facility] [place] [address]prcuss[address] [place] [address]Dr. Bhavani Barragan ALP [Catalytic activity/Vol] 247 U/L Critically high 46-116 [facility] Comment on above: Performed By: #### L IPA, CMP ####[facility] [place] Xhythsmkfi[address] [place], [place] [address]Dr. Bhavani Barragan ALT [Catalytic activity/Vol] 50 U/L Normal 14-59 [facility] Comment on above: Performed By: #### L IPA, CMP ####[facility] [place] Cmswcvpdpp9[address] [place], [place] [address]Dr. Bhavani Barragan Anion gap [Moles/Vol] 11.2 mmol/L Normal [facility] Comment on above: Performed By: #### L IPA, CMP ####[facility] [place] Lemxnnqzwz9[address] [place], [place] [address]Dr. Bhavani Barragan AST [Catalytic activity/Vol] 19 U/L Normal 15-37 [facility] Comment on above: Performed By: #### L IPA, CMP ####[facility] [place] Gmfnwvmgjb[address] [place], [place] [address]Dr. Bhavani Barragan Bilirubin [Mass/Vol] 1.5 mg/dL Critically high 0.2-1.0 [facility] Comment on above: Performed By: #### L IPA, CMP ####[facility] [place] Cawuujadmx64[address] [place], [place] [address]Dr. Bhavani Barragan Calcium [Mass/Vol] 8.1 mg/dL Critically low 8.5-10.1 [facility] Comment on above: Performed By: #### L IPA, CMP ####[facility] [place] N[address]fuskgfr[address] [place] [address]Dr. Bhavani Barragan Chloride [Moles/Vol] 105 mmol/L Normal 98-107 The [facility] [place] Comment on above: Performed By: #### L IPA, CMP ####[facility] [place] Erkiirwzgt05[address] [place], [place] [address]Dr. Bhavani Barragan CO2 [Moles/Vol] 25.1 mmol/L Normal 21.0-32.0 [facility] Comment on above: Performed By: #### L IPA, CMP ####[facility] [place] Vvtfjvewth[address] [place], [place] [address]Dr. Bhavani Barragan Creatinine [Mass/Vol] 1.39 mg/dL Critically high 0.55-1.02 [facility] Comment on above: Performed By: #### L IPA, CMP ####[facility] [place] Ftalgrdtso25[address] [place], [place] [address]Dr. Bhavani Barragan EGFR-AF [place] 44 mL/min/1.73m2 Critically low >=60 [facility] Comment on above: Performed By: #### L IPA, CMP ####[facility] [place] Xwhbdiaffy4[address] [place], [place] [address]Dr. Bhavani Barragan EGFR-NON AF [place] 36 mL/min/1.73m2 Critically low >=60 The [facility] [place] Comment on above: Performed By: #### L IPA, CMP ####[facility] [place] Gdaspncqeg3267[address] [place], [place] [address]Dr. Bhavani Barragan Globulin (S) [Mass/Vol] 4.3 g/dL Normal [facility] Comment on above: Performed By: #### L IPA, CMP ####[facility] [place] Hyjusqeibr3767[address] [place], [place] [address]Dr. Bhavani Barrgaan Glucose [Mass/Vol] 113 mg/dL Critically high 74-106 [facility] Comment on above: Performed By: #### L IPA, CMP ####[facility] [place] Wwxtrqracs9813[address] [place], [place] [address]Dr. Bhavani Barragan Potassium [Moles/Vol] 4.3 mmol/L Normal 3.5-5.1 The [facility] [place] Comment on above: Performed By: #### L IPA, CMP ####[facility] [place] G[address]qrhey[address] [place] [address]Dr. Bhavani Barragan Protein [Mass/Vol] 6.3 g/dL Critically low 6.4-8.2 Th e [facility] [place] Comment on above: Performed By: #### L IPA, CMP ####[facility] [place] X[address]wr[address]zzg[address] [place] [address]Dr. Bhavani Barragan Sodium [Moles/Vol] 137 mmol/L Normal 136-145 [facility] Comment on above: Performed By: #### L IPA, CMP ####[facility] [place] Wpwwedorxq5[address] [place], [place] [address]Dr. Bhavani Barragan Urea nitrogen [Mass/Vol] 26.0 mg/dL Critically high 7.0-18.0 [facility] Comment on above: Performed By: #### L IPA, CMP ####[facility] [place] Gubmytbkne[address] [place], [place] [address]Dr. Bhavani Barragan Urea nitrogen/Creatinine [Mass ratio] 18.7 mg/mg Normal [facility] Comment on above: Performed By: #### L IPA, CMP ####[facility] [place] Mcegicfqww[address] [place], [place] [address]Dr. Bhavani Barragan PROTIMEon 04-01-2022 INR Coag (PPP) [Relative time] 1.14 {INR} Normal [facility] Comment on above: Performed By: #### P TT, PT ####[facility] [place] Zatvndhgxo[address] [place], [place] [address]Dr. Bhavani Barragan INR GUIDELINES SEE BELOW Normal The [facility] Comment on above: Result Comment: WALKER RED INR: 2.0 - 3.0 CONDITIONS NOT LISTED BELOW 2.5 - 3.5 FOR PROSTHETIC HEART VALVE REPLACEMENT 2.5 - 3.5 RECURRENT THROMBOSIS Performed By: #### P TT, PT ####[facility] [place] Rkefxoutrp[address] [place], [place] [address]Dr. Bhavani Barragan PT Coag (PPP) [Time] 12.2 s Critically high 9.0-11.6 [facility] Comment on above: Performed By: #### P TT, PT ####[facility] [place] [address] [place], [place] [address]Gg. Bhavani Barragan PTTon 04-01-2022 aPTT Coag (Bld) [Time] 25.4 s Normal 22.3-36.2 [facility] Comment on above: Performed By: #### P TT, PT ####[facility] [place] [address]ss[address] [place], [place] [address]Gs. Bhavani Barragan TROPONIN-Ion 04-01-2022 Troponin I.cardiac [Mass/Vol] 0.02 ng/mL Normal 0.00-0.04 [facility] Comment on above: Result Comment: REFE RENCE RANGES: 0.00 - 0.04 ng/ml NORMAL 0.05 - 0.50 ng/ml INDETERMINATE > 0.50 ng/ml CONSISTENT WITH AN M.I. Performed By: #### 2 2706 #### [facility] [address] UFH HEPARIN ASSAYon 04-01-20 UNFRACTIONATED HEPARIN >1.00 Critically high 0.30-0.70 [facility] Comment on above: Result Comment: Resu lt checked and called. Accurately read back by EYAL GRIFFIN RN ON 04/01/2022 AT 22:07 Rivaroxaban and Apixaban will interfere with the anti Xa assay used to monitor UFH and LMWH. Performed By: #### 8 5499 #### [facility] [address] [facility]. [address] UNFRACTIONATED HEPARIN >1.00 Critically high 0.30-0.70 The [facility] Comment on above: Result Comment: Resu lt checked and called. Accurately read back by YANICK MICHAELS RN ON 04/01/2022 AT 16:07 Rivaroxaban and Apixaban will interfere with the anti Xa assay used to monitor UFH and LMWH. Performed By: #### 8 5499 #### [facility] [address] [facility] [place] [address], [facility] AMMONIAon 03-31-2022 Ammonia (P) [Mass/Vol] ug/dL Critically low 11-32 The [facility] [place] Comment on above: Performed By: #### A MM ####[facility] [place] [address] [place] [address]Dr. Bhavani Barragan CBC AUTO DIFFon 03-31-2022 BASO # 0.1 103/ul Normal 0.0-0.1 The [facility] [place] Comment on above: Performed By: #### C BC ####[facility] [place] Abbwubugip[address] [place], [place] [address]Dr. Bhavani Barragan Basophils/100 WBC (Bld) 0.4 % Normal 0.2-2.0 The [facility] [place] Comment on above: Performed By: #### C BC ####[facility] [place] N[address]zpajpd[address] [place], [place] [address]Dr. Bhavani Barragan EO # 0.0 103/ul Normal 0.0-0.7 The [facility] [place] Comment on above: Performed By: #### C BC ####[facility] [place] Bu[address]muotj[address] [place], [place] [address]Dr. Bhavani Barragan Eosinophils/100 WBC (Bld) 0.1 % Critically low 0.9-7.0 The [facility] [place] Comment on above: Performed By: #### C BC ####[facility] [place] Tuodivssow[address] [place], [place] [address]Dr. Bhavani Barragan Erythrocyte distribution width (RBC) [Ratio] 17.7 % Critically high 11.0-15.0 [facility] Comment on above: Performed By: #### C BC ####[facility] [place] Gswcypyhed2210[address] [place], [place] [address]Dr. Bhavani Barragan Hematocrit (Bld) [Volume fraction] 36.5 % Normal 36.0-48.0 The [facility] [place] Comment on above: Performed By: #### C BC ####[facility] [place] Gvrjgwqxzw[address] [place], [place] [address]Dr. Bhavani Barragan Hemoglobin (Bld) [Mass/Vol] 11.5 g/dL Critically low 12.0-16.0 The [facility] [place] Comment on above: Performed By: #### C BC ####[facility] [place] Sdltsfusgq[address] [place], [place] [address]Dr. Bhavani Barragan IG # 0.38 10e3/ul Critically high 0.00-0.03 [facility] Comment on above: Performed By: #### C BC ####[facility] [place] J[address]cs[address] [place] [address]DrLydia Championroxi Laurel IG % 1.2 % Critically high 0.0-0.5 [facility] Comment on above: Performed By: #### C BC ####[facility] [place] T[address]axibwzu[address] [place] [address]DrLydia Barragan LYMPH # 0.7 103/ul Critically low 1.2-3.8 [facility] Comment on above: Performed By: #### C BC ####[facility] [place] Wmbpalmvff52[address] [place], [place] [address]DrLydia Barragan Lymphocytes/100 WBC (Bld) 2.4 % Critically low 20.5-60.0 [facility] Comment on above: Performed By: #### C BC ####[facility] [place] St[address]hgsms[address] [place], [place] [address]DrLydia Barragan MANUAL DIFF REQ NO Normal [facility] Comment on above: Performed By: #### C BC ####[facility] [place] Pkflxjsgaa39[address] [place], [place] [address]DrLydia Barragan MCH (RBC) [Entitic mass] 30.3 pg Normal 26.7-34.0 [facility] Comment on above: Performed By: #### C BC ####[facility] [place] Pcqjrvlrxs[address] [place], [place] [address]DrLydia Barragan MCHC (RBC) [Mass/Vol] 31.5 g/dL Normal 29.9-35.2 The [facility] [place] Comment on above: Performed By: #### C BC ####[facility] [place] Qrrjaogogv[address] [place], [place] [address]DrLydia Barragan MCV (RBC) [Entitic vol] 96.3 fL Normal 81.0-99.0 [facility] Comment on above: Performed By: #### C BC ####[facility] [place] Azxfedvvdz[address]10[address] [place], [place] [address]Dr. Bhavani Barragan MONO # 0.8 103/ul Normal 0.3-0.8 The [facility] [place] Comment on above: Performed By: #### C BC ####[facility] [place] [address] [place] [id number]. Bhavani Barragan Monocytes/100 WBC (Bld) 2.5 % Normal 1.7-12.0 The [facility] [place] Comment on above: Performed By: #### C BC ####[facility] [place] Htwfxvrorj[address] [place] [id number]. Bhavani Barragan NEUT # 29.0 103/ul Critically high 1.4-6.5 [facility] Comment on above: Performed By: #### C BC ####[facility] [place] Z[address]vefxui[address] [place] [id number]. Bhavani Barragan Neutrophils/100 WBC (Bld) 93.4 % Critically high 43.0-75.0 The [facility] [place] Comment on above: Performed By: #### C BC ####[facility] [place] Fnwhjzweqy[address] [place] [id number]. Bhavani Barragan Platelet mean volume (Bld) [Entitic vol] 10.5 fL Normal 9.5-13.5 The [facility] [place] Comment on above: Performed By: #### C BC ####[facility] [place] T[address]zkpv[address] [place] [id number]. Bhavani Barragan PLT 346 103/ul Normal 150-450 The [facility] [place] Comment on above: Performed By: #### C BC ####[facility] [place] Y[address]owrbyvv3[address] [place] [id number]. Bhavani Barragan RBC 3.79 106/ul Critically low 4.20-5.[address] [facility] Comment on above: Performed By: #### C BC ####[facility] [place] [address]vdrbmoo37[address] [place] [id number]. Bhavani Barragan WBC 31.0 103/ul Critically high 4.0-11.0 [facility] Comment on above: Performed By: #### C BC ####[facility] [place] V[address]ib[address]rnsi[address] [place] [id number]. Bhavani Barragan CT CHEST WO CONon 03-31-2022 CT CHEST WO CON Normal The [facility] LIPASEon 03-31-2022 Lipase [Catalytic activity/Vol] 3577.0 U/L Critically high 73.0-393.0 [facility] Comment on above: Performed By: #### L IPA ####[facility] [place] V[address]azkc[address] [place] [address]Dr. Bhavani Barragan MRI ABDOMEN WO CONon 022 MRI ABDOMEN WO CON Normal The [facility] POINT OF CARE GLUCOSEon 03-18 Glucose [Mass/Vol] 153 mg/dL Critically high 74-106 [facility] Comment on above: Performed By: #### P OCGLUC ####[facility] [place] Qynfsdknpt[address] [place], [place] [address]Dr. Bhavani Barragan Glucose [Mass/Vol] 158 mg/dL Critically high 74-106 [facility] Comment on above: Performed By: #### P OCGLUC ####[facility] [place] Qhwhpsvdhb[address] [place], [place] [address]Dr. Bhavani Barragan Glucose [Mass/Vol] 120 mg/dL Critically high 74-106 [facility] Comment on above: Performed By: #### P OCGLUC ####[facility] [place] Kvukltzmuj3869[address] [place], [place] [address]Dr. Bhavani Barragan Glucose [Mass/Vol] 74 mg/dL Normal 74-106 [facility] Comment on above: Performed By: #### P OCGLUC ####[facility] [place] Qzsyhgzjke38[address] [place], [place] [address]Dr. Bhavani Barragan PROF 14(COMP METB)on 022 Albumin [Mass/Vol] 1.9 g/dL Critically low 3.4-5.0 [facility] Comment on above: Performed By: #### C MP ####[facility] [place] Stwfqsfobj14[address] [place], [place] [address]Dr. Bhavani Barragan Albumin/Globulin [Mass ratio] 0.5 {ratio} Normal [facility] Comment on above: Performed By: #### C MP ####[facility] [place] Cnyzhnbsuk[address] [place], [place] [address]Dr. Bhavani Barragan ALP [Catalytic activity/Vol] 283 U/L Critically high 46-116 [facility] Comment on above: Performed By: #### C MP ####[facility] [place] [address]qfjcxldy[address] [place] [address]Dr. Bhavani Barragan ALT [Catalytic activity/Vol] 64 U/L Critically high 14-59 [facility] Comment on above: Performed By: #### C MP ####[facility] [place] Dukaugzoms[address] [place], [place] [address]Dr. Bhavani Laurel Anion gap [Moles/Vol] 11.6 mmol/L Normal [facility] Comment on above: Performed By: #### C MP ####[facility] [place] Nbauxzaall[address] [place], [place] [address]Dr. Bhavani Laurel AST [Catalytic activity/Vol] 52 U/L Critically high 15-37 [facility] Comment on above: Performed By: #### C MP ####[facility] [place] Ktgdnbtfyb4620[address] [place], [place] [address]Dr. Bhavani Laurel Bilirubin [Mass/Vol] 2.8 mg/dL Critically high 0.2-1.0 [facility] Comment on above: Performed By: #### C MP ####[facility] [place] Soinznthnv7[address] [place], [place] [address]Dr. Bhavani Laurel Calcium [Mass/Vol] 7.9 mg/dL Critically low 8.5-10.1 [facility] Comment on above: Performed By: #### C MP ####[facility] [place] Ecfkctaimq0064[address] [place], [place] [address]Dr. Bhavani Laurel Chloride [Moles/Vol] 102 mmol/L Normal 98-107 The [facility] [place] Comment on above: Performed By: #### C MP ####[facility] [place] Fipivuwvef3308[address] [place], [place] [address]Dr. Bhavani Barragan CO2 [Moles/Vol] 27.4 mmol/L Normal 21.0-32.0 [facility] Comment on above: Performed By: #### C MP ####[facility] [place] Wpffbllrox4[address] [place], [place] [address]Dr. Jayceeroxi Barragan Creatinine [Mass/Vol] 1.48 mg/dL Critically high 0.55-1.02 [facility] Comment on above: Performed By: #### C MP ####[facility] [place] Nfjo[address]dnfj[address] [place] [address]Dr. Bhavani Laurel EGFR-AF [place] 41 mL/min/1.73m2 Critically low >=60 [facility] Comment on above: Performed By: #### C MP ####[facility] [place] J[address]ibdmgcz[address] [place] [address]Dr. Jayceeroxi Laurel EGFR-NON AF [place] 34 mL/min/1.73m2 Critically low >=60 [facility] Comment on above: Performed By: #### C MP ####[facility] [place] Hfhhwssnlu782[address] [place], [place] [address]Dr. Bhavani Barragan Globulin (S) [Mass/Vol] 4.0 g/dL Normal [facility] Comment on above: Performed By: #### C MP ####[facility] [place] Dbfwifkoen4098[address] [place], [place] [address]Dr. Bhavani Barragan Glucose [Mass/Vol] 84 mg/dL Normal 74-106 [facility] Comment on above: Performed By: #### C MP ####[facility] [place] Goiimzzxgg0667[address] [place], [place] [address]Dr. Bhavani Barragan Potassium [Moles/Vol] 4.0 mmol/L Normal 3.5-5.1 [facility] Comment on above: Performed By: #### C MP ####[facility] [place] Zpkvurmaps[address] [place], [place] [address]Dr. Bhavani Barragan Protein [Mass/Vol] 5.9 g/dL Critically low 6.4-8.2 Th [facility] Comment on above: Performed By: #### C MP ####[facility] [place] Ryfwdrflfl[address] [place], [place] [address]Dr. Bhavani Barragan Sodium [Moles/Vol] 137 mmol/L Normal 136-145 [facility] Comment on above: Performed By: #### C MP ####[facility] [place] Lmglntuoxy[address] [place], [place] [address]Dr. Bhavani Barragan Urea nitrogen [Mass/Vol] 26.0 mg/dL Critically high 7.0-18.0 [facility] Comment on above: Performed By: #### C MP ####[facility] [place] Vkffrzponw[address] [place], [place] [address]Dr. Bhavani Barragan Urea nitrogen/Creatinine [Mass ratio] 17.6 mg/mg Normal The [facility] [place] Comment on above: Performed By: #### C MP ####[facility] [place] Pgsflcpycj[address] [place], [place] [address]Dr. Bhavani Laurel PROTIMEon 03-31-2022 INR Coag (PPP) [Relative time] 1.34 {INR} Normal [facility] [place] Comment on above: Performed By: #### P T, PTT ####[facility] [place] Rprkfdpycs[address] [place], [place] [address]Dr. Bhavani Laurel INR GUIDELINES SEE BELOW Normal The [facility] Comment on above: Result Comment: WALKER RED INR: 2.0 - 3.0 CONDITIONS NOT LISTED BELOW 2.5 - 3.5 FOR PROSTHETIC HEART VALVE REPLACEMENT 2.5 - 3.5 RECURRENT THROMBOSIS Performed By: #### P T, PTT ####[facility] [place] R[address]wkjiobk[address] [place], [place] [address]Dr. Bhavani Barragan PT Coag (PPP) [Time] 14.2 s Critically high 9.0-11.6 [facility] [place] Comment on above: Performed By: #### P T, PTT ####[facility] [place] R[address]qeaklcg[address] [place], [place] [address]Dr. Bhavani Laurel PTTon 03-31-2022 aPTT Coag (Bld) [Time] 37.6 s Critically high 22.3-36.2 [facility] [place] Comment on above: Performed By: #### P T, PTT ####[facility] [place] Lhvuuskltv[address] [place], [place] [address]Dr. Bhavani Laurel XR CHEST 1 Von 03-31-2022 XR CHEST 1 V Normal [facility] [place] AMMONIAon 03-30-2022 Ammonia (P) [Moles/Vol] 30 umol/L Normal 11-32 [facility] [place] Comment on above: Performed By: #### A MM ####[facility] [place] [address]wdqt[address] [place] [address]Dr. Bhavani Barragan CBC W MANUAL DIFFon 03-30-20 22 ATYPICAL LYMPH # Normal [facility] Comment on above: Performed By: #### C OMID ####[facility] [place] Qjqekvcora[address] [place] [address]Dr. Bhavani Barragan ATYPICAL LYMPH % Normal [facility] Comment on above: Performed By: #### C OMID ####[facility] [place] Hsfvlsnxtp[address] [place] [address]Dr. Bhavani Barragan BAND # Normal 0.0-0.3 The [facility] [place] Comment on above: Performed By: #### C OMID ####[facility] [place] Nsmaadynyv[address] [place], [place] [address]Dr. Bhavani Barragan BAND % Normal 0-5 The [facility] [place] Comment on above: Performed By: #### C OMID ####[facility] [place] Thqrkpjsti07[address] [place], [place] [address]Dr. Bhavani Barragan BASOM # 0.00 103/ul Normal 0.00-0.10 [facility] [place] Comment on above: Performed By: #### C OMID ####[facility] [place] Xjeajvifcn[address] [place], [place] [address]Dr. Bhavani Barragan BASOM % 0.0 % Critically low 0.2-2.0 The [facility] Comment on above: Performed By: #### C OMID ####[facility] [place] Vxeaoznopx[address] [place], [place] [address]Dr. Bhavani Barragan BLAST # Normal The [facility] [place] Comment on above: Performed By: #### C OMID ####[facility] [place] Kleewhxzwp45[address] [place] [address]Dr. Bhavani Barragan BLAST % Normal The [facility] [place] Comment on above: Performed By: #### C OMID ####[facility] [place] Efnykpabwb4[address] [place] [address]Dr. Bhavani Barragan CORRECTED WBC Normal 4.0-11.0 The [facility] Comment on above: Performed By: #### C OMID ####[facility] [place] Lymasxooec5483 [place] [id number]. Bhavani Barragan EOS # 0.00 103/ul Normal 0.00-0.70 The [facility] [place] Comment on above: Performed By: #### C OMID ####[facility] [place] Wldadljmao8331 [place] [id number]. Bhavani Barragan EOS% 0.0 % Critically low 0.9-7.0 The [facility] Comment on above: Performed By: #### C OMID ####[facility] [place] Ppmeymkpvs1850 [place] [id number]. Bhavani Barragan HCT 39.8 % Normal 36.0-48.0 The [facility] [place] Comment on above: Performed By: #### C OMID ####[facility] [place] Kwgqeiphjp23[address] [place] [address]Dr. Bhavani Barragan HGB 12.2 g/dl Normal 12.0-16.0 The [facility] [place] Comment on above: Performed By: #### C OMID ####[facility] [place] Dgpsstmjal8671 [place] [address]Dr. Bhavani Barragan LYMPHM # 0.56 103/ul Critically low 1.20-3.[address] [facility] Comment on above: Performed By: #### C OMID ####[facility] [place] Zvxcopsduh0968 [place] [address]Dr. Bhavani Barragan LYMPHM% 2.0 % Critically low 20.5-60.0 The [facility] Comment on above: Performed By: #### C OMID ####[facility] [place] Woxkrqsliv0138 [place] [address]Dr. Bhavani Barragan MCH 29.7 pg Normal 26.7-34.0 The [facility] [place] Comment on above: Performed By: #### C OMID ####[facility] [place] Hbfejkrlud6837 [place] [address]Dr. Bhavani Barragan MCHC 30.7 g/dl Normal 29.9-35.2 The [facility] [place] Comment on above: Performed By: #### C OMID ####[facility] [place] Ryttzkfpra[address] [place], [place] [address]Dr. Bhavani Barragan MCV 96.8 fL Normal 81.0-99.0 [facility] Comment on above: Performed By: #### C OMID ####[facility] [place] Hmiyifzyby3412 [place], [place] [address]Ks. Bhavani Barragan METAMYELOCYTE # Normal [facility] Comment on above: Performed By: #### C OMID ####[facility] [place] Dswgtrhpww7787 [place], [place] [address]Ev. Bhavani Barragan METAMYELOCYTE % Normal [facility] Comment on above: Performed By: #### C OMID ####[facility] [place] Aetbiphmry4362 [place], [place] [address]Hn. Bhavani Barragan MONOM# 0.28 103/ul Critically low 0.30-0.[address] [facility] Comment on above: Performed By: #### C OMID ####[facility] [place] Yldrasuxoh9881 [place] [address]Dr. Bhavani Barragan MONOM% 1.0 % Critically low 1.7-12.0 [facility] Comment on above: Performed By: #### C OMID ####[facility] [place] Uemcfjdeqy3307 [place] [address]Dr. Bhavani Barragan MPV 10.2 fL Normal 9.5-13.5 [facility] Comment on above: Performed By: #### C OMID ####[facility] [place] Nkhvaqhxpw6384 [place] [address]Dr. Bhavani Barragan MYELOCYTE # Normal The [facility] [place] Comment on above: Performed By: #### C OMID ####[facility] [place] Whjiihjhbc2822 [place], [place] [address]Av. Bhavani Barragan MYELOCYTE % Normal The [facility] [place] Comment on above: Performed By: #### C OMID ####[facility] [place] Ukxfrqtrgg7032 [place] [address]Dr. Bhavani Barragan NRBC Normal The [facility] [place] Comment on above: Performed By: #### C OMID ####[facility] [place] Rsyncaomsu6025 [place] [address]Dr. Bhavani Barragan PLT 371 103/ul Normal 150-450 [facility] Comment on above: Performed By: #### C BCMAN ####[facility] [place] Wqzonkqzbb0727 [place], [place] [address]Zr. Bhavani Barragan RBC 4.11 106/ul Critically low 4.20-5.40 [facility] Comment on above: Performed By: #### C BCMAN ####[facility] [place] Kuksuchzqv2520 [place], [place] [address]Ka. Bhavani Barragan RDW 17.4 % Critically high 11.0-15.0 [facility] Comment on above: Performed By: #### C BCJERSON ####[facility] [place] Uerlxlxept3579 [place], [place] [address]Ql. Bhavani Barragan SEG # 27.35 103/ul Critically high 1.40-6.50 [facility] Comment on above: Performed By: #### C BCJERSON ####[facility] [place] Pmmcrifqvq9428 [place], [place] [address]Yy. Bhavani Barragan SEG % 97.0 % Critically high 43.0-75.0 [facility] Comment on above: Performed By: #### C BCJERSON ####[facility] [place] Vombxugybl6435 [place], [place] [address]Jl. Bhavani Barragan WBC 28.2 103/ul Critically high 4.0-11.[address] [facility] Comment on above: Performed By: #### C BCMAN ####[facility] [place] Uukyprwifj7136 [place], [place] [address]Gr. Bhavani Barragan POINT OF CARE GLUCOSEon 05- Glucose [Mass/Vol] 92 mg/dL Normal 74-106 [facility] Comment on above: Performed By: #### P OCGLUC ####[facility] [place] Vpawcadtud2050 [place], [place] [address]Aj. Bhavani Barragan Glucose [Mass/Vol] 122 mg/dL Critically high 74-106 [facility] Comment on above: Result Comment: Foll ow Protocol Performed By: #### P OCGLUC ####[facility] [place] Lsyoqwltyt1523 [place] [id number]. Bhavani Barragan Glucose [Mass/Vol] 107 mg/dL Critically high 74-106 [facility] Comment on above: Performed By: #### P OCGLUC ####[facility] [place] Ifxkangtwh127[address] [place], [place] [address]Dr. Bhavani Barragan PROF 14(COMP METB)on 022 Albumin [Mass/Vol] 2.0 g/dL Critically low 3.4-5.0 Th e [facility] [place] Comment on above: Performed By: #### C MP ####[facility] [place] Pujndcybxk819[address] [place], [place] [address]Dr. Bhavani Barragan Albumin/Globulin [Mass ratio] 0.5 {ratio} Normal [facility] Comment on above: Performed By: #### C MP ####[facility] [place] Ixlodkabno68[address] [place], [place] [address]Dr. Bhavani Barragna ALP [Catalytic activity/Vol] 298 U/L Critically high 46-116 [facility] Comment on above: Performed By: #### C MP ####[facility] [place] Rdiebaoulf[address] [place], [place] [address]Dr. Bhavani Barragan ALT [Catalytic activity/Vol] 94 U/L Critically high 14-59 [facility] Comment on above: Performed By: #### C MP ####[facility] [place] Nbydgguoof9338[address] [place], [place] [address]Dr. Bhavani Barragan Anion gap [Moles/Vol] 12.8 mmol/L Normal [facility] Comment on above: Performed By: #### C MP ####[facility] [place] Ttnjhccknw47264[address] [place], [place] [address]Dr. Bhavani Barragan AST [Catalytic activity/Vol] 73 U/L Critically high 15-37 [facility] Comment on above: Performed By: #### C MP ####[facility] [place] Zydmytnxkj4099[address] [place], [place] [address]Dr. Bhavani Barragan Bilirubin [Mass/Vol] 3.6 mg/dL Critically high 0.2-1.0 [facility] Comment on above: Performed By: #### C MP ####[facility] [place] Awsztibohd2390[address] [place], [place] [address]Dr. Bhavani Barragan Calcium [Mass/Vol] 7.8 mg/dL Critically low 8.5-10.1 [facility] Comment on above: Performed By: #### C MP ####[facility] [place] Pbectwdbmx3201[address] [place], [place] [address]Dr. Bhavani Barragan Chloride [Moles/Vol] 103 mmol/L Normal 98-107 [facility] Comment on above: Performed By: #### C MP ####[facility] [place] Rjyrutbnwd3295[address] [place], [place] [address]Dr. Bhavani Barragan CO2 [Moles/Vol] 25.2 mmol/L Normal 21.0-32.[address] [facility] Comment on above: Performed By: #### C MP ####[facility] [place] Nzjweyyowu832[address] [place], [place] [address]Dr. Bhavani Barragan Creatinine [Mass/Vol] 1.38 mg/dL Critically high 0.55-1.02 [facility] Comment on above: Performed By: #### C MP ####[facility] [place] Wbeglsommz953[address] [place], [place] [address]Dr. Bhavani Barragan EGFR-AF [place] 44 mL/min/1.73m2 Critically low >=60 [facility] Comment on above: Performed By: #### C MP ####[facility] [place] Ymbujirkry6[address] [place], [place] [address]Dr. Bhavani Barragan EGFR-NON AF [place]IZ[place] 37 mL/min/1.73m2 Critically low >=60 [facility] Comment on above: Performed By: #### C MP ####[facility] [place] Uyqsdsszpd089[address] [place], [place] [address]Dr. Bhavani Barragan Globulin (S) [Mass/Vol] 4.1 g/dL Normal [facility] Comment on above: Performed By: #### C MP ####[facility] [place] Trhqpbbfie295[address] [place], [place] [address]Dr. Bhavani Barragan Glucose [Mass/Vol] 109 mg/dL Critically high 74-106 [facility] Comment on above: Performed By: #### C MP ####[facility] [place] Ifizbskrxe1465[address] [place], [place] [address]Dr. Bhavani Barragan Potassium [Moles/Vol] 4.0 mmol/L Normal 3.5-5.1 [facility] Comment on above: Performed By: #### C MP ####[facility] [place] Bjenbwgydx0105[address] [place], [place] [address]Dr. Bhavani Barragan Protein [Mass/Vol] 6.1 g/dL Critically low 6.4-8.2 Th e [facility] [place] Comment on above: Performed By: #### C MP ####[facility] [place] Leajbhwsjf9560[address] [place], [place] [address]Dr. Bhavani Barragan Sodium [Moles/Vol] 137 mmol/L Normal 136-145 [facility] Comment on above: Performed By: #### C MP ####[facility] [place] Iitikhrctq933[address] [place], [place] [address]Dr. Bhavani Barragan Urea nitrogen [Mass/Vol] 22.0 mg/dL Critically high 7.0-18.0 [facility] Comment on above: Performed By: #### C MP ####[facility] [place] Rivlkawdmb4214[address] [place], [place] [address]Dr. Bhavani Barragan Urea nitrogen/Creatinine [Mass ratio] 15.9 mg/mg Normal [facility] Comment on above: Performed By: #### C MP ####[facility] [place] Xnwocutjqq7[address] [place], [place] [address]Dr. Bhavani Barragan PROTIMEon 03-30-2022 INR Coag (PPP) [Relative time] 1.28 {INR} Normal [facility] Comment on above: Performed By: #### P T, PTT ####[facility] [place] Gvrewpkvff0200[address] [place], [place] [address]Dr. Bhavani Barragan INR GUIDELINES SEE BELOW Normal [facility] Comment on above: Result Comment: WALKER RED INR: 2.0 - 3.0 CONDITIONS NOT LISTED BELOW 2.5 - 3.5 FOR PROSTHETIC HEART VALVE REPLACEMENT 2.5 - 3.5 RECURRENT THROMBOSIS Performed By: #### P T, PTT ####[facility] [place] Pgchcjvlqo8[address] [place], [place] [address]Dr. Bhavani Barragan PT Coag (PPP) [Time] 13.6 s Critically high 9.0-11.6 [facility] Comment on above: Performed By: #### P T, PTT ####[facility] [place] Vlnlvpyzkl[address] [place], [place] [address]Dr. Bhavani Barragan PTTon 03-30-2022 aPTT Coag (Bld) [Time] 34.9 s Normal 22.3-36.2 [facility] [place] Comment on above: Performed By: #### P T, PTT ####[facility] [place] Jbyabzrwwt8585[address] [place], [place] [address]Dr. Bhavani Barragan US SINGLE QUAD RT UPPERon US SINGLE QUAD RT UPPER Normal The [facility] [place] AMMONIAon 03-29-2022 Ammonia (P) [Moles/Vol] 17 umol/L Normal 11-32 [facility] [place] Comment on above: Performed By: #### A MM ####[facility] [place] Othszeipjb97[address] [place], [place] [address]Dr. Bhavani Barragan CBC W MANUAL DIFFon 03-29-20 ANISOCYTOSIS 2+ Normal [facility] [place] Comment on above: Performed By: #### C OMID ####[facility] [place] Hgfgtngmri375[address] [place], [place] [address]Dr. Bhavani Laurel ATYPICAL LYMPH # Normal [facility] Comment on above: Performed By: #### C OMID ####[facility] [place] Bgcrzbuxdx1580[address] [place], [place] [address]Dr. Jayceeroxi Laurel ATYPICAL LYMPH % Normal [facility] Comment on above: Performed By: #### C BCJERSON ####[facility] [place] Wagflkcjpa6601[address] [place], [place] [address]Dr. Bhavani Barragan BAND # 1.2 103/ul Critically high 0.0-0.[address] [facility] Comment on above: Performed By: #### C BCJERSON ####[facility] [place] Uyyaeytlii8240[address] [place], [place] [address]Dr. Bhavani Barragan BAND % 4 % Normal 0-5 [facility] [place] Comment on above: Performed By: #### C BCMAN ####[facility] [place] Ikrjrebbje080[address] [place], [place] [address]Dr. Bhavani Barragan BASOM # 0.00 103/ul Normal 0.00-0.10 [facility] [place] Comment on above: Performed By: #### C OMID ####[facility] [place] Oxwpmpbrii0309 [place] [address]Dr. Bhavani Barragan BASOM % 0.0 % Critically low 0.2-2.0 [facility] Comment on above: Performed By: #### C BCJERSON ####[facility] [place] Yabpvplxvr1524 [place] [address]Dr. Bhavani Barragan BLAST # Normal [facility] Comment on above: Performed By: #### C OMID ####[facility] [place] Nnolafadnb0898 [place] [address]Dr. Bhavani Barragan BLAST % Normal [facility] [place] Comment on above: Performed By: #### C OMID ####[facility] [place] Cgxsyggfam119[address] [place], [place] [address]Dr. Bhavani Barragan CORRECTED WBC Normal 4.0-11.0 [facility] Comment on above: Performed By: #### C OMID ####[facility] [place] Bcjazdsgkc2216[address] [place], [place] [address]Dr. Bhavani Barragan EOS # 0.00 103/ul Normal 0.00-0.70 [facility] [place] Comment on above: Performed By: #### C OMID ####[facility] [place] Sdsqawyblj[address] [place], [place] [address]Dr. Bhavani Barragan EOS% 0.0 % Critically low 0.9-7.0 [facility] Comment on above: Performed By: #### C OMID ####[facility] [place] Peaidwbprh9[address] [place], [place] [address]Dr. Bhavani Barragan HCT 41.4 % Normal 36.0-48.0 [facility] [place] Comment on above: Performed By: #### C OMID ####[facility] [place] Yhveeiauoo8667[address] [place], [place] [address]Dr. Bhavani Barragan HGB 12.6 g/dl Normal 12.0-16.0 [facility] [place] Comment on above: Performed By: #### C OMID ####[facility] [place] Nhbmlmckbq6444[address] [place], [place] [address]Dr. Bhavani Barragan LYMPHM # 0.62 103/ul Critically low 1.20-3.[address] [facility] Comment on above: Performed By: #### C OMID ####[facility] [place] Vdudeuvvtu6206 [place] [address]Dr. Bhavani Barragan LYMPHM% 2.0 % Critically low 20.5-60.0 [facility] Comment on above: Performed By: #### C OMID ####[facility] [place] Ukhcbqnacd9171 [place] [address]Dr. Bhavani Barragan MCH 29.6 pg Normal 26.7-34.0 [facility] [place] Comment on above: Performed By: #### C OMID ####[facility] [place] Fysfrfxsqw89[address] [place], [place] [address]Dr. Bhavani Barragan MCHC 30.4 g/dl Normal 29.9-35.2 [facility] [place] Comment on above: Performed By: #### Jany ANNE ####[facility] [place] Emuemtlopv76[address] [place], [place] [address]Dr. Bhavani Barragan MCV 97.4 fL Normal 81.0-99.0 [facility] [place] Comment on above: Performed By: #### Jany ANNE ####[facility] [place] Itazyazety[address] [place], [place] [address]Dr. Bhavani Barragan METAMYELOCYTE # Normal [facility] Comment on above: Performed By: #### Jany ANNE ####[facility] [place] Jdakphyiiq5851 [place] [address]Dr. Bhavani Barragan METAMYELOCYTE % Normal [facility] Comment on above: Performed By: #### C OMID ####[facility] [place] Etcrhgpyhp5720 [place] [address]Dr. Bhavani Barragan MONOM# 0.93 103/ul Critically high 0.30-0.80 [facility] Comment on above: Performed By: #### C OMID ####[facility] [place] Aubbhdxapu3337 [place] [address]Dr. Bhavani Barragan MONOM% 3.0 % Normal 1.7-12.0 [facility] [place] Comment on above: Performed By: #### C OMID ####[facility] [place] Rinzotrmlg2116 [place], [place] [address]Fu. Bhavani Barragan MPV 9.7 fL Normal 9.5-13.5 [facility] Comment on above: Performed By: #### C OMID ####[facility] [place] Jvlxuswmjz0089 [place], [place] [address]Sc. Bhavani Barragan MYELOCYTE # Normal [facility] Comment on above: Performed By: #### C OMID ####[facility] [place] Kchqclzict7180 [place], [place] [address]Yj. Bhavani Barragan MYELOCYTE % Normal [facility] [place] Comment on above: Performed By: #### C OMID ####[facility] [place] Qeivqahrhf0654 [place] [address]Dr. Bhavani Barragan NRBC Normal [facility] [place] Comment on above: Performed By: #### C OMID ####[facility] [place] Jdfemyklmg8384 [place] [address]Dr. Bhavani Barragan PLT 362 103/ul Normal 150-450 [facility] Comment on above: Performed By: #### C OMID ####[facility] [place] Sabirciphw5384 [place] [address]Dr. Bhavani Barragan RBC 4.25 106/ul Normal 4.20-5.40 [facility] Comment on above: Performed By: #### C OMID ####[facility] [place] Zfitjbipkh5098 [place] [address]Dr. Bhavani Barragan RDW 17.2 % Critically high 11.0-15.[address] [facility] Comment on above: Performed By: #### C OMID ####[facility] [place] Qdbzgwmcrk9602 [place], [place] [address]Ye. Bhavani Barragan SEG # 28.12 103/ul Critically high 1.40-6.50 [facility] Comment on above: Performed By: #### C OMID ####[facility] [place] Vfpwnuyltw9900 [place] [address]Dr. Bhavani Barragan SEG % 91.0 % Critically high 43.0-75.0 [facility] Comment on above: Performed By: #### C BCMAN ####[facility] [place] Cfduwqifxz4644 [place] [address]Dr. Bhavani Barragan WBC 30.9 103/ul Critically high 4.0-11.[address] [facility] Comment on above: Result Comment: repe ated Performed By: #### C BCMAN ####[facility] [place] Udngmhtthg6793 [place] [address]Dr. Bhavani Barragan CT ABD/PELV W CONon 03-29-[address] ABD/PELV W CON Normal [facility] POINT OF CARE GLUCOSEon 03-18 Glucose [Mass/Vol] 102 mg/dL Normal 74-106 [facility] Comment on above: Performed By: #### P OCGLUC ####[facility] [place] Vugkpppkef97[address] [place] [address]Dr. Bhavani Barragan Glucose [Mass/Vol] 100 mg/dL Normal 74-106 [facility] Comment on above: Performed By: #### P OCGLUC ####[facility] [place] Igezikijmr3191 [place] [address]Dr. Bhavani Barragan Glucose [Mass/Vol] 132 mg/dL Critically high 74-106 [facility] Comment on above: Performed By: #### P OCGLUC ####[facility] [place] Geyemekbqq9008 [place] [address]Dr. Bhavani Barragan Glucose [Mass/Vol] 130 mg/dL Critically high 74-106 [facility] Comment on above: Performed By: #### P OCGLUC ####[facility] [place] Fyanhywenw3422 [place] [address]Dr. Bhavani Laurel PROF 14(COMP METB)on 022 Albumin [Mass/Vol] 2.1 g/dL Critically low 3.4-5.0 [facility] Comment on above: Performed By: #### C MP ####[facility] [place] Rrojmkgzuz3975 [place] [address]Dr. Bhavani Barragan Albumin/Globulin [Mass ratio] 0.6 {ratio} Normal [facility] Comment on above: Performed By: #### C MP ####[facility] [place] Goaupohiog9068 [place] [id number]. Bhavani Barragan ALP [Catalytic activity/Vol] 277 U/L Critically high 46-116 [facility] Comment on above: Performed By: #### C MP ####[facility] [place] Gnxsqnbboi9077 [place] [address]Dr. Bhavani Barragan ALT [Catalytic activity/Vol] 90 U/L Critically high 14-59 [facility] [place] Comment on above: Performed By: #### C MP ####[facility] [place] Vvxxatupgz3005 [place] [address]Dr. Bhavani Barragan Anion gap [Moles/Vol] 13.1 mmol/L Normal [facility] Comment on above: Performed By: #### C MP ####[facility] [place] Spkbuytrwe8182 [place] [address]Dr. Bhavani Barragan AST [Catalytic activity/Vol] 56 U/L Critically high 15-37 [facility] Comment on above: Performed By: #### C MP ####[facility] [place] Lvcnjlfbpx[address] [place], [place] [address]Dr. Bhavani Barragan Bilirubin [Mass/Vol] 4.1 mg/dL Critically high 0.2-1.0 [facility] Comment on above: Performed By: #### C MP ####[facility] [place] Lkrnilbbri[address] [place], [place] [address]Dr. Bhavani Barragan Calcium [Mass/Vol] 7.9 mg/dL Critically low 8.5-10.1 [facility] Comment on above: Performed By: #### C MP ####[facility] [place] Ipmiwuvzlk6562 [place] [address]Dr. Bhavani Barragan Chloride [Moles/Vol] 103 mmol/L Normal 98-107 [facility] [place] Comment on above: Performed By: #### C MP ####[facility] [place] Nrbpndwhkr2177 [place] [address]Dr. Bhavani Barragan CO2 [Moles/Vol] 25.9 mmol/L Normal 21.0-32.0 [facility] Comment on above: Performed By: #### C MP ####[facility] [place] Gxrafiuomc7787 [place] [id number]. Bhavani Barragan Creatinine [Mass/Vol] 1.32 mg/dL Critically high 0.55-1.02 [facility] Comment on above: Performed By: #### C MP ####[facility] [place] Juqmuranwd0932 [place] [id number]. Bhavani Barragan EGFR-AF [place] 47 mL/min/1.73m2 Critically low >=60 [facility] Comment on above: Performed By: #### C MP ####[facility] [facility] [address]cycm[address] [place] [id number]. Bhavani Barragan EGFR-NON AF [place]IZ[place] 39 mL/min/1.73m2 Critically low >=60 [facility] Comment on above: Performed By: #### C MP ####[facility] Gbpeggevth[address] [place] [id number]. Bhavani Barragan Globulin (S) [Mass/Vol] 3.7 g/dL Normal [facility] Comment on above: Performed By: #### C MP ####[facility] Fcloumyncp15[address] [place] [id number]. Bhavani Barragan Glucose [Mass/Vol] 133 mg/dL Critically high 74-106 [facility] Comment on above: Performed By: #### C MP ####[facility] Keywxkawte23[address] [place] [id number]. Bhavani Barragan Potassium [Moles/Vol] 4.0 mmol/L Normal 3.5-5.1 [facility] Comment on above: Performed By: #### C MP ####[facility] [place] Jmajzgdurx8[address] [place] [id number]. Bhavani Barragan Protein [Mass/Vol] 5.8 g/dL Critically low 6.4-8.2 [facility] Comment on above: Performed By: #### C MP ####[facility] [place] Tnwudmjgvq47[address] [place] [id number]. Bhavani Barragan Sodium [Moles/Vol] 138 mmol/L Normal 136-145 [facility] Comment on above: Performed By: #### C MP ####[facility] Pzpmtjqlip[address] [place] [address]Dr. Bhavani Barragan Urea nitrogen [Mass/Vol] 19.0 mg/dL Critically high 7.0-18.0 [facility] Comment on above: Performed By: #### C MP ####[facility] Mcbvygwpwa[address] [place] [address]Dr. Bhavani Barragan Urea nitrogen/Creatinine [Mass ratio] 14.4 mg/mg Normal [facility] Comment on above: Performed By: #### C MP ####[facility] Nxirqmeazj[address] [place], [place] [address]Dr. Bhavani Barragan PROTIMEon 03-29-2022 INR Coag (PPP) [Relative time] 1.33 {INR} Normal [facility] Comment on above: Performed By: #### P T, PTT ####[facility] Vrblkkvtfv6[address] [place], [place] [address]Dr. Jayceeroxi Barragan INR GUIDELINES SEE BELOW Normal [facility] Comment on above: Result Comment: WALKER RED INR: 2.0 - 3.0 CONDITIONS NOT LISTED BELOW 2.5 - 3.5 FOR PROSTHETIC HEART VALVE REPLACEMENT 2.5 - 3.5 RECURRENT THROMBOSIS Performed By: #### P T, PTT ####[facility] Wnhgywzjuv6[address] [place], [place] [address]Dr. Bhavani Barragan PT Coag (PPP) [Time] 14.1 s Critically high 9.0-11.6 [facility] Comment on above: Performed By: #### P T, PTT ####[facility] [place] Tivgtsgpsf[address] [place], [place] [address]Dr. Bhavani Barragan PTTon 03-29-2022 aPTT Coag (Bld) [Time] 36.0 s Normal 22.3-36.2 [facility] Comment on above: Performed By: #### P T, PTT ####[facility] Rydhoaovbh[address] [place], [place] [address]Dr. Bhavani Barragan AMMONIAon 03-28-2022 Ammonia (P) [Moles/Vol] 22 umol/L Normal -32 [facility] Comment on above: Performed By: #### A MM ####[facility] Lpqsbkpzjk6[address] [place] [address]Dr. Bhavani Barragan CBC W MANUAL DIFFon 03-28-20 22 ANISOCYTOSIS 2+ Normal [facility] Comment on above: Performed By: #### C BCMAN ####[facility] [place] Pzyltiqmxq6[address] [place] [address]Dr. Bhavani Barragan ATYPICAL LYMPH # Normal [facility] Comment on above: Performed By: #### C BCMAN ####[facility] Idbwfficlz[address] [place] [address]Dr. Bhavani Barragan ATYPICAL LYMPH % Normal [facility] Comment on above: Performed By: #### C BCMAN ####[facility] [place] Omzpnxydvc[address] [place], [place] [address]Dr. Bhavani Barragan BAND # 0.8 103/ul Critically high 0.0-0.[address] [facility] Comment on above: Performed By: #### C BCMAN ####[facility] [place] Wrabgouhog87[address] [place], [place] [address]Dr. Bhavani Barragan BAND % 3 % Normal 0-5 [facility] Comment on above: Performed By: #### C BCJERSON ####[facility] [place] Ybpuhvgklg1025[address] [place], [place] [address]Dr. Bhavani Barragan BASOM # 0.00 103/ul Normal 0.00-0.10 [facility] Comment on above: Performed By: #### C BCMAN ####[facility] Dtpbjafcow59[address] [place], [place] [address]Dr. Bhavani Barragan BASOM % 0.0 % Critically low 0.2-2.0 [facility] Comment on above: Performed By: #### C BCMAN ####[facility] [place] Kkxudnbmjc414[address] [place], [place] [address]Dr. Bhavani Barragan BLAST # Normal [facility] Comment on above: Performed By: #### C BCMAN ####[facility] [place] Sqekboiyos[address] [place], [place] [address]Dr. Bhavani Barragan BLAST % Normal [facility] [place] Comment on above: Performed By: #### C BCMAN ####[facility] [place] Kcezipybjv3112 [place], [place] [address]Tu. Bhavani Barragan CORRECTED WBC Normal 4.0-11.0 [facility] Comment on above: Performed By: #### C OMID ####[facility] Mtovemzdzf38[address] [place] [id number]. Bhavani Barragan EOS # 0.00 103/ul Normal 0.00-0.70 [facility] Comment on above: Performed By: #### C OMID ####[facility] Wbbtpbaazp8206 [place] [id number]. Bhavani Barragan EOS% 0.0 % Critically low 0.9-7.0 [facility] Comment on above: Performed By: #### C OMID ####[facility] [place] Zszzfqaupq3[address] [place] [id number]. Bhavani Barragan HCT 38.9 % Normal 36.0-48.0 [facility] Comment on above: Performed By: #### C OMID ####[facility] Tmocyotdea4423 [place] [id number]. Bhavani Barragan HGB 11.9 g/dl Critically low 12.0-16.0 [facility] Comment on above: Performed By: #### C OMID ####[facility] [place] Ihsspkaowf9[address] [place] [phone]. Bhavani Barragan LYMPHM # 0.78 103/ul Critically low 1.20-3.[address] [facility] Comment on above: Performed By: #### C OMID ####[facility] Topukzizso16[address] [place] [id number]. Bhavani Barragan LYMPHM% 3.0 % Critically low 20.5-60.0 [facility] Comment on above: Performed By: #### C OMID ####[facility] [place] Wecwlllgtp89[address] [place] [id number]. Bhavani Barragan MCH 29.8 pg Normal 26.7-34.0 [facility] Comment on above: Performed By: #### C OMID ####[facility] [place] Pbynclapur[address] [place], [place] [address]Dr. Bhavani Barragan MCHC 30.6 g/dl Normal 29.9-35.2 [facility] Comment on above: Performed By: #### C OMID ####[facility] Mzquyyaaeg6[address] [place] [id number]. Bhavani Barragan MCV 97.3 fL Normal 81.0-99.0 [facility] Comment on above: Performed By: #### C OMID ####[facility] Cbuwnqyayn14[address] [place] [id number]. Bhavani Barragan METAMYELOCYTE # Normal [facility] Comment on above: Performed By: #### C OMID ####[facility] Pkceacsgfs17[address] [place] [id number]. Bhavani Barragan METAMYELOCYTE % Normal [facility] Comment on above: Performed By: #### C OMID ####[facility] Uqreiyfngc8[address] [place] [address]Dr. Bhavani Barragan MONOM# 0.78 103/ul Normal 0.30-0.80 [facility] Comment on above: Performed By: #### C OMID ####[facility] [place] Lmcipyowei76[address] [place] [address]Dr. Bhavani Barragan MONOM% 3.0 % Normal 1.7-12.0 [facility] Comment on above: Performed By: #### C OMID ####[facility] [place] Qcayhiugno80[address] [place] [address]Dr. Bhavani Barragan MPV 10.6 fL Normal 9.5-13.5 [facility] Comment on above: Performed By: #### C OMID ####[facility] [place] Wgwhlaptec[address] [place] [id number]. Bhavani Barragan MYELOCYTE # Normal [facility] Comment on above: Performed By: #### C OMID ####[facility] Homqbtojyt7294 [place] [address]Dr. Bhavani Barragan MYELOCYTE % Normal [facility] Comment on above: Performed By: #### C OMID ####[facility] [place] L[address]dlwurmz[address] [place], [place] [address]Dr. Bhavani Barragan NRBC Normal [facility] Comment on above: Performed By: #### C OMID ####[facility] [place] Dtutihkyjp8169 [place], [place] [address]Dh. Bhavani Barragan PLT 402 103/ul Normal 150-450 [facility] Comment on above: Performed By: #### C OMID ####[facility] [place] Fqppmotbjo6195 [place], [place] [address]TrLydia Bhavani Laurel RBC 4.00 106/ul Critically low 4.20-5.40 [facility] Comment on above: Performed By: #### C OMID ####[facility] [place] Jrwmrwnrtb5592 [place], [place] [address]Hy. Bhavani Laurel RDW 16.7 % Critically high 11.0-15.0 [facility] Comment on above: Performed By: #### C OMID ####[facility] [place] Xltanfvrma4491 [place], [place] [address]IiLydia Barragan SEG # 23.66 103/ul Critically high 1.40-6.50 [facility] Comment on above: Performed By: #### C OMID ####[facility] [place] Ruwfishkrb9049 [place], [place] [address]Aq. Bhavani Barragan SEG % 91.0 % Critically high 43.0-75.0 [facility] Comment on above: Performed By: #### C OMID ####[facility] [place] Mhwfkhylwi9667 [place], [place] [address]QxLydia Bhavani Laurel WBC 26.0 103/ul Critically high 4.0-11.[address] [facility] Comment on above: Performed By: #### C OMID ####[facility] [place] Jcmbulexfy4650 [place], [place] [address]QzLydia Barragan PROF 14(COMP METB)on 022 Albumin [Mass/Vol] 2.1 g/dL Critically low 3.4-5.0 [facility] Comment on above: Performed By: #### C MP ####[facility] [place] Kxyekrgfkp4330 [place], [place] [address]OoLydia Barragan Albumin/Globulin [Mass ratio] 0.6 {ratio} Normal [facility] Comment on above: Performed By: #### C MP ####[facility] [place] Yyfdnqrdtp14[address] [place] [address]Dr. Bhavani Barragan ALP [Catalytic activity/Vol] 235 U/L Critically high 46-116 [facility] Comment on above: Performed By: #### C MP ####[facility] [place] Unzgygqbyv6[address] [place] [address]Dr. Bhavani Laurel ALT [Catalytic activity/Vol] 112 U/L Critically high 14-59 [facility] Comment on above: Performed By: #### C MP ####[facility] [place] Anmrajemqs69[address] [place] [address]Dr. Bhavani Barragan Anion gap [Moles/Vol] 12.3 mmol/L Normal [facility] Comment on above: Performed By: #### C MP ####[facility] [place] Jwaidqzhof022[address] [place] [address]Dr. Bhavani Barragan AST [Catalytic activity/Vol] 57 U/L Critically high 15-37 [facility] Comment on above: Performed By: #### C MP ####[facility] [place] Qottzvhunl99[address] [place] [address]Dr. Jayceeroxi Laurel Bilirubin [Mass/Vol] 1.6 mg/dL Critically high 0.2-1.0 [facility] Comment on above: Performed By: #### C MP ####[facility] [place] Optarhcwqc64[address] [place] [address]Dr. Bhavani Barragan Calcium [Mass/Vol] 7.6 mg/dL Critically low 8.5-10.1 [facility] Comment on above: Performed By: #### C MP ####[facility] [place] Oipcvgiieb7406 [place] [address]Dr. Bhavani Barragan Chloride [Moles/Vol] 104 mmol/L Normal 98-107 [facility] Comment on above: Performed By: #### C MP ####[facility] [place] Feyfpnrufg9[address] [place] [address]Dr. Bhavani Barragan CO2 [Moles/Vol] 25.5 mmol/L Normal 21.0-32.[address] [facility] Comment on above: Performed By: #### C MP ####[facility] [place] Njmwajaxxw7552 [place] [id number]. Bhavani Barragan Creatinine [Mass/Vol] 1.28 mg/dL Critically high 0.55-1.02 [facility] Comment on above: Performed By: #### C MP ####[facility] [place] Rvgvldkujj2027 [place] [id number]. Bhavani Barragan EGFR-AF [place] 48 mL/min/1.73m2 Critically low >=60 [facility] Comment on above: Performed By: #### C MP ####[facility] [place] Nswehbqdrl9257 [place] [address]Dr. Bhavani Barragan EGFR-NON AF [place] 40 mL/min/1.73m2 Critically low >=60 [facility] Comment on above: Performed By: #### C MP ####[facility] [place] Rrpiirpqza2507 [place] [id number]. Bhavani Barragan Globulin (S) [Mass/Vol] 3.7 g/dL Normal [facility] Comment on above: Performed By: #### C MP ####[facility] [place] Oqsypgjmie0515 [place] [address]Dr. Bhavani Barragan Glucose [Mass/Vol] 69 mg/dL Critically low 74-106 [facility] Comment on above: Performed By: #### C MP ####[facility] [place] Wivmafphlz9542 [place] [id number]. Bhavani Barragan Potassium [Moles/Vol] 3.8 mmol/L Normal 3.5-5.1 [facility] Comment on above: Performed By: #### C MP ####[facility] [place] Juzfmlafht9204 [place] [address]Dr. Bhavani Barragan Protein [Mass/Vol] 5.8 g/dL Critically low 6.4-8.2 [facility] Comment on above: Performed By: #### C MP ####[facility] [place] Ddkkkablvg0796 [place] [id number]. Bhavani Barragan Sodium [Moles/Vol] 138 mmol/L Normal 136-145 [facility] Comment on above: Performed By: #### C MP ####[facility] [place] Wrkyazqwly8734 [place] [address]Dr. Bhavani Barragan Urea nitrogen [Mass/Vol] 18.0 mg/dL Normal 7.0-18.0 [facility] Comment on above: Performed By: #### C MP ####[facility] [place] Xmciwmqcht1924[address] [place], [place] [address]Dr. Bhavani Barragan Urea nitrogen/Creatinine [Mass ratio] 14.1 mg/mg Normal [facility] Comment on above: Performed By: #### C MP ####[facility] [place] Tjravpzfdg[address] [place], [place] [address]Dr. Bhavani Barragan PROTIMEon 03-28-2022 INR Coag (PPP) [Relative time] 1.38 {INR} Normal [facility] Comment on above: Performed By: #### P T, PTT ####[facility] [place] Odnfnxyogi[address] [place], [place] [address]Dr. Bhavani Barragan INR GUIDELINES SEE BELOW Normal [facility] Comment on above: Result Comment: WALKER RED INR: 2.0 - 3.0 CONDITIONS NOT LISTED BELOW 2.5 - 3.5 FOR PROSTHETIC HEART VALVE REPLACEMENT 2.5 - 3.5 RECURRENT THROMBOSIS Performed By: #### P T, PTT ####[facility] [place] Jrtvnwpogy7775[address] [place], [place] [address]Dr. Bhavani Barragan PT Coag (PPP) [Time] 14.6 s Critically high 9.0-11.6 [facility] Comment on above: Performed By: #### P T, PTT ####[facility] [place] Oawaxvnxjd913[address] [place], [place] [address]Dr. Bhavani Barragan PTTon 03-28-2022 aPTT Coag (Bld) [Time] 36.6 s Critically high 22.3-36.2 [facility] Comment on above: Performed By: #### P T, PTT ####[facility] [place] Zxeeszqvkq5060[address] [place], [place] [address]Dr. Bhavani Barragan RESPIRATORY PANEL PLUSon Adenovirus Not detected Normal NOT DETECTED [facility] Comment on above: Performed By: #### R SPLUS ####[facility] [place] Gqqrkgydia9[address] [place] [address]Dr. Bhavani Barragan B. Parapertusis Not detected Normal NOT DETECTED [facility] Comment on above: Performed By: #### R SPLUS ####[facility] [place] Unvrhbhvia4888 [place] [address]Dr. Bhavani Barragan B. Pertussis Not detected Normal NOT DETECTED [facility] Comment on above: Performed By: #### R SPLUS ####[facility] [place] Eibahfbpci210[address] [place], [place] [address]Dr. Bhavani Barragan Chlamydia Pneumoniae Not detected Normal NOT DETECTED [facility] Comment on above: Performed By: #### R SPLUS ####[facility] [place] Efbgafocys264[address] [place], [place] [address]Dr. Bhavani Barragan Coronavirus 229E Not detected Normal NOT DETECTED [facility] Comment on above: Performed By: #### R SPLUS ####[facility] [place] Kdwjgythhn8[address] [place], [place] [address]Dr. roxi Barragan Coronavirus HKU1 Not detected Normal NOT DETECTED [facility] Comment on above: Performed By: #### R SPLUS ####[facility] [place] Sknpgilddc[address] [place], [place] [address]Dr. Bhavani Barragan Coronavirus NL63 Not detected Normal NOT DETECTED [facility] Comment on above: Performed By: #### R SPLUS ####[facility] [place] Auydcgwekz9784[address] [place], [place] [address]Dr. Bhavani Barragan Coronavirus OC43 Not detected Normal NOT DETECTED [facility] Comment on above: Performed By: #### R SPLUS ####[facility] [place] Hzsoxjxmpp2495[address] [place], [place] [address]Dr. Bhavani Barragan Influenza A H1 2009 Not detected Normal NOT DETECTED [facility] Comment on above: Performed By: #### R SPLUS ####[facility] [place] Avjynxrorm13[address] [place], [place] [address]Dr. Bhavani Barragan Influenza A H3 Not detected Normal NOT DETECTED [facility] Comment on above: Performed By: #### R SPLUS ####[facility] [place] Envqdzbvud5416 [place] [address]Dr. Bhavani Barragan Influenza B Not detected Normal NOT DETECTED [facility] Comment on above: Performed By: #### R SPLUS ####[facility] [place] Fyrdorbtyy7492 [place] [address]Dr. Bhavani Barragan Metapneumovirus Not detected Normal NOT DETECTED [facility] Comment on above: Performed By: #### R SPLUS ####[facility] [place] Qnguradtmk0459 [place] [address]Dr. Jayceeroxi Barragan Mycoplas. Pneumoniae Not detected Normal NOT DETECTED [facility] Comment on above: Performed By: #### R SPLUS ####[facility] [place] Mtieccdhqy57[address] [place], [place] [address]Dr. Bhavani Barragan Parainfluenza 1 Not detected Normal NOT DETECTED [facility] Comment on above: Performed By: #### R SPLUS ####[facility] [place] Ahzufyavel998[address] [place], [place] [address]Dr. Bhavani Barragan Parainfluenza 2 Not detected Normal NOT DETECTED [facility] Comment on above: Performed By: #### R SPLUS ####[facility] [place] Ybtdawmydh307[address] [place], [place] [address]Dr. Bhavani Barragan Parainfluenza 3 Not detected Normal NOT DETECTED [facility] Comment on above: Performed By: #### R SPLUS ####[facility] [place] Vikoelfjjg[address] [place], [place] [address]Dr. Jayceeroxi Barragan Parainfluenza 4 Not detected Normal NOT DETECTED [facility] Comment on above: Performed By: #### R SPLUS ####[facility] [place] Pfcmgitdna39[address] [place], [place] [address]Dr. Bhavani Barragan Rhino/Enterovirus Not detected Normal NOT DETECTED [facility] Comment on above: Performed By: #### R SPLUS ####[facility] [place] Baxopjzdpy38[address] [place], [place] [address]Dr. Bhavani Barragan RP2 Header 1 RESPIRATORY PANEL: VIRUSES Normal [facility] [place] Comment on above: Performed By: #### R SPLUS ####[facility] [place] Xyqphwkxon5740 [place] [address]Dr. Bhavani Barragan RP2 Header 2 RESPIRATORY PANEL: BACTERIA Normal [facility] [place] Comment on above: Performed By: #### R SPLUS ####[facility] [place] Zlpgwqdcom97[address] [place], [place] [address]Dr. Bhavani Barragan RSV Not detected Normal NOT DETECTED [facility] Comment on above: Performed By: #### R SPLUS ####[facility] [place] Djmuteimfa7188[address] [place], [place] [address]Dr. Bhavani Barragan SARS-CoV-2 (COVID-19) RNA MATTHEW+probe Ql (Unsp spec) Not detected Normal NOT DETECTED [facility] [place] Comment on above: Performed By: #### R SPLUS ####[facility] [place] Eiezzrbsie827[address] [place], [place] [address]Dr. Bhavani Barragan AMMONIAon 03-27-2022 Ammonia (P) [Moles/Vol] 22 umol/L Normal 11-32 [facility] Comment on above: Performed By: #### A MM ####[facility] [place] Bxjbsvtjrj664[address] [place], [place] [address]Dr. Bhavani Barragan BLOOD GASES BTYon 03-27-2022 02 MODE NASAL CANNULA Normal [facility] Comment on above: Performed By: #### A BG ####[facility] [place] Ehvarfgphx1085[address] [place], [place] [address]Dr. Bhavani Barragan ALLENS TEST Positive Normal [facility] [place] Comment on above: Performed By: #### A BG ####[facility] [place] Xrirlvhsjg6225[address] [place], [place] [address]Dr. Bhavani Barragan Base excess Calc (Bld) [Moles/Vol] 1.4 mmol/L Normal -2.0-2.0 [facility] [place] Comment on above: Performed By: #### A BG ####[facility] [place] Svicfosome5264[address] [place], [place] [address]Dr. Bhavani Barragan BIPAP PRESSURE Normal [facility] Comment on above: Performed By: #### A BG ####[facility] [place] Bftytfvaum[address] [place], [place] [address]Dr. Bhavani Barragan CO2 [Moles/Vol] 50.8 mmol/L Critically high 23.0-28.0 [facility] [place] Comment on above: Performed By: #### A BG ####[facility] [place] Pctkvzjlox4076 [place] [address]Dr. Bhavani Barragan CPAP Normal [facility] Comment on above: Performed By: #### A BG ####[facility] [place] Lhtfouhsrw3848 [place] [address]Dr. Bhavani Barragan FIO2 Normal [facility] Comment on above: Performed By: #### A BG ####[facility] [place] Vrzmxyyfxq10[address] [place], [place] [address]Dr. Bhavani Barragan HCO3 (Bld) [Moles/Vol] 25.6 mmol/L Normal 22.0-26.0 [facility] [place] Comment on above: Performed By: #### A BG ####[facility] [place] Bfrwkfjxew[address] [place], [place] [address]Dr. Bhavani Barragan LPM 5 Normal [facility] [place] Comment on above: Performed By: #### A BG ####[facility] [place] Iabvradugw147[address] [place], [place] [address]Dr. Bhavani Barragan MINUTE VOLUME Normal [facility] Comment on above: Performed By: #### A BG ####[facility] [place] Srivwshllj22[address] [place], [place] [address]Dr. Bhavani Barragan Oxygen (Bld) [Partial pressure] 56.6 mm[Hg] Critically low 80.0-100.0 [facility] [place] Comment on above: Performed By: #### A BG ####[facility] [place] Fjlmwciqzl89[address] [place], [place] [address]Dr. Bhavani Barragan Oxygen saturation in Blood 91.3 % Critically low 95.0-100.0 [facility] Comment on above: Performed By: #### A BG ####[facility] [place] Pruxmgotzh[address] [place], [place] [address]Dr. Bhavani Barragan PCO2 36.1 mmHg Normal 35.0-45.0 [facility] [place] Comment on above: Performed By: #### A BG ####[facility] [place] Aqyfsgshlw[address] [place] [address]Dr. Bhavani Barragan PEEP Normal [facility] Comment on above: Performed By: #### A BG ####[facility] [place] Xxozqggjvp6471 [place] [address]Dr. Bhavani Barragan pH (Bld) 7.454 [pH] Critically high 7.350-7.[address] [facility] Comment on above: Performed By: #### A BG ####[facility] [place] Yiwmioiwqa3759 [place] [address]Dr. Bhavani Barragan PIP [facility] Comment on above: Performed By: #### A BG ####[facility] [place] Npxujsutdx[address] [place], [place] [address]Dr. Bhavani Barragan PS [facility] Comment on above: Performed By: #### A BG ####[facility] [place] Iuwbdlsves[address] [place], [place] [address]Dr. Bhavani Barragan PUNCTURE SITE LR Normal [facility] Comment on above: Performed By: #### A BG ####[facility] [place] Tmhwxbrpfu[address] [place], [place] [address]Dr. Bhavani Barragan RATE [facility] Comment on above: Performed By: #### A BG ####[facility] [place] Dtkcfyrmqz[address] [place], [place] [address]Dr. Bhavnai Barragan VENT MODE [facility] Comment on above: Performed By: #### A BG ####[facility] [place] Lskafjmxbk96[address] [place] [address]Dr. Bhavani Barragan VT [facility] Comment on above: Performed By: #### A BG ####[facility] [place] Ujfuxdqxle7[address] [place] [address]Dr. Bhavani Barragan CBC W MANUAL DIFFon 03-27-20 22 ANISOCYTOSIS 2+ [facility] Comment on above: Performed By: #### C BCMAN ####[facility] [place] Kfpfrobzel7[address] [place] [address]Dr. Bhavani Barragan ATYPICAL LYMPH # Normal [facility] Comment on above: Performed By: #### C BCJERSON ####[facility] [place] Phuubbhqoa3984 [place] [id number]. Bhavani Barragan ATYPICAL LYMPH % Normal [facility] Comment on above: Performed By: #### C BCMAN ####[facility] [place] Dxgbwdymfw8788 [place] [phone]. Bhavani Barragan BAND # 1.5 103/ul Critically high 0.0-0.[address] [facility] Comment on above: Performed By: #### C BCMAN ####[facility] [place] Ztkkcbfytz9696 [place] [address]Dr. Jayceelan Barragan BAND % 5 % Normal 0-5 [facility] [place] Comment on above: Performed By: #### C OMID ####[facility] [place] Mijynprfcb9177 [place] [address]Dr. Bhavani Barragan BASOM # 0.00 103/ul Normal 0.00-0.10 [facility] [place] Comment on above: Performed By: #### C OMID ####[facility] [place] Jjorqllebh5052 [place] [address]Dr. Bhavani Barragan BASOM % 0.0 % Critically low 0.2-2.0 [facility] Comment on above: Performed By: #### C OMID ####[facility] [place] Ngyoxupdkz[address] [place], [place] [address]Dr. Bhavani Barragan BLAST # Normal [facility] [place] Comment on above: Performed By: #### C OMID ####[facility] [place] Bqeiswdutr6916 [place] [address]Dr. Bhavani Barragan BLAST % Normal [facility] [place] Comment on above: Performed By: #### C BCJEROSN ####[facility] [place] Ewprmlgpca27[address] [place] [address]Dr. Bhavani Barragan CORRECTED WBC Normal 4.0-11.0 [facility] Comment on above: Performed By: #### C OMID ####[facility] [place] Avvpomwvhs5322 [place] [address]Dr. Bhavani Barragan EOS # 0.00 103/ul Normal 0.00-0.70 [facility] [place] Comment on above: Performed By: #### C BCJERSON ####[facility] [place] Hkphutgxlu1075 [place], [place] [address]Zl. Bhavani Barragan EOS% 0.0 % Critically low 0.9-7.0 [facility] Comment on above: Performed By: #### Jany ANNE ####[facility] [place] Qzfvhydvbf6856 [place] [id number]. Bhavani Barragan HCT 41.4 % Normal 36.0-48.0 [facility] [place] Comment on above: Performed By: #### Jany ANNE ####[facility] [place] Xpalaxypdb4582 [place] [phone]. Bhavani Barragan HGB 13.0 g/dl Normal 12.0-16.0 [facility] [place] Comment on above: Performed By: #### Jany ANNE ####[facility] [place] Rjnsbthtyr4560 [place] [id number]. Bhavani Barragan LYMPHM # 0.60 103/ul Critically low 1.20-3.[address] [facility] Comment on above: Performed By: #### Jany ANNE ####[facility] [place] Mdgtsytstq5323 [place] [phone]. Bhavani Barragan LYMPHM% 2.0 % Critically low 20.5-60.0 [facility] Comment on above: Performed By: #### Jany ANNE ####[facility] [place] Yqdcjfcijh1271 [place] [id number]. Bhavani Barragan MCH 30.1 pg Normal 26.7-34.0 [facility] [place] Comment on above: Performed By: #### Jany ANNE ####[facility] [place] Kzndgslyee9479 [place] [phone]. Bhavani Barragan MCHC 31.4 g/dl Normal 29.9-35.2 [facility] [place] Comment on above: Performed By: #### Jany ANNE ####[facility] [place] Wiluiioamk2853 [place] [phone]. Bhavani Barragan MCV 95.8 fL Normal 81.0-99.0 [facility] [place] Comment on above: Performed By: #### Jany ANNE ####[facility] [place] Xnfrcnfpbv3688 [place] [phone]. Bhavani Barragan METAMYELOCYTE # Normal [facility] Comment on above: Performed By: #### C OMID ####[facility] [place] Kvhkcvynix7111 [place], [place] [address]Uj. Bhavani Barragan METAMYELOCYTE % Normal [facility] Comment on above: Performed By: #### C OMID ####[facility] [place] Cpaigvoxbs5504 [place] [phone]. Bhavani Barragan MONOM# 0.91 103/ul Critically high 0.30-0.[address] [facility] Comment on above: Performed By: #### C OMID ####[facility] [place] Dfswelofza8710 [place] [phone]. Bhavani Barragan MONOM% 3.0 % Normal 1.7-12.0 [facility] Comment on above: Performed By: #### C OMID ####[facility] [place] Ylzculdlmz2772 [place] [phone]. Bhavani Barragan MPV 10.4 fL Normal 9.5-13.5 [facility] Comment on above: Performed By: #### C OMID ####[facility] [place] Szfkcgjzke8846 [place] [phone]. Bhavani Barragan MYELOCYTE # Normal [facility] [place] Comment on above: Performed By: #### C OMID ####[facility] [place] Pqcwwjjifd5184 [place] [phone]. Bhavani Barragan MYELOCYTE % Normal [facility] [place] Comment on above: Performed By: #### C OMID ####[facility] [place] Aewbqgnkxd9786 [place] [phone]. Bhavani Barragan NRBC Normal [facility] [place] Comment on above: Performed By: #### C OMID ####[facility] [place] Ixjhehfsah0083 [place] [phone]. Bhavani Barragan PLT 431 103/ul Normal 150-450 [facility] [place] Comment on above: Performed By: #### C OMID ####[facility] [place] Kpkzydkgmg9725 [place] [phone]. Jayceeroxi Laurel RBC 4.32 106/ul Normal 4.20-5.40 [facility] Comment on above: Performed By: #### C BCMAN ####[facility] [place] Fmafvpgmmo7611 [place] [phone]. Bhavani Barragan RDW 16.4 % Critically high 11.0-15.0 [facility] Comment on above: Performed By: #### C BCMAN ####[facility] [place] Mbkdpkbmqk7339 [place] [phone]. Bhavani Barragan SEG # 27.18 103/ul Critically high 1.40-6.50 [facility] Comment on above: Performed By: #### C BCMAN ####[facility] [place] Gnzqpfrdof8007 [place] [phone]. Bhavani Barragan SEG % 90.0 % Critically high 43.0-75.0 [facility] Comment on above: Performed By: #### C BCMAN ####[facility] [place] Vruwgjikgk5704 [place] [address]Dr. Bhavani Barragan WBC 30.2 103/ul Critically high 4.0-11.[address] [facility] Comment on above: Performed By: #### C BCMAN ####[facility] [place] Knyraypmtb5563 [place] [address]Dr. Bhavani Barragan CTA CHEST WO W CONon 03-27- 022 CTA CHEST WO W CON Normal [facility] POINT OF CARE GLUCOSEon 05 0 Glucose [Mass/Vol] 94 mg/dL Normal 74-106 [facility] Comment on above: Performed By: #### P OCGLUC ####[facility] [place] Vbvguxtpye1687 [place] [address]Dr. Bhavani Barragan Glucose [Mass/Vol] 131 mg/dL Critically high 74-106 [facility] Comment on above: Performed By: #### P OCGLUC ####[facility] [place] Myozhfdssj3105 [place] [address]Dr. Bhavani Barragan Glucose [Mass/Vol] 134 mg/dL Critically high 74-106 [facility] Comment on above: Performed By: #### P OCGLUC ####[facility] [place] Xnrgxvwfjk2014 [place] [address]Dr. Bhavani Barragan PROF 14(COMP METB)on 022 Albumin [Mass/Vol] 2.4 g/dL Critically low 3.4-5.0 [facility] Comment on above: Performed By: #### C MP ####[facility] [place] Emqjlqhvrg5396 [place] [address]Dr. Bhavani Barragan Albumin/Globulin [Mass ratio] 0.6 {ratio} Normal [facility] Comment on above: Performed By: #### C MP ####[facility] [place] Kxyjgbhnrb0018 [place] [address]Dr. Bhavani Barragan ALP [Catalytic activity/Vol] 306 U/L Critically high 46-116 [facility] Comment on above: Performed By: #### C MP ####[facility] [place] Xziljojbfj9522 [place] [address]Dr. Bhavani Barragan ALT [Catalytic activity/Vol] 152 U/L Critically high 14-59 [facility] Comment on above: Performed By: #### C MP ####[facility] [place] Izyqtuildt[address] [place], [place] [address]Dr. Bhavani Barragan Anion gap [Moles/Vol] 8.1 mmol/L Normal [facility] Comment on above: Performed By: #### C MP ####[facility] [place] Fapudlnuae[address] [place], [place] [address]Dr. Bhavani Barragan AST [Catalytic activity/Vol] 98 U/L Critically high 15-37 [facility] Comment on above: Performed By: #### C MP ####[facility] [place] Nenorgpkkr3924 [place] [address]Dr. Bhavani Barragan Bilirubin [Mass/Vol] 2.7 mg/dL Critically high 0.2-1.0 [facility] Comment on above: Performed By: #### C MP ####[facility] [place] Bfgxfgfnht2626 [place] [address]Dr. Bhavani Barragan Calcium [Mass/Vol] 7.4 mg/dL Critically low 8.5-10.1 [facility] Comment on above: Performed By: #### C MP ####[facility] [place] Qhtehunodn5404 [place] [phone]. Bhavani Barragan Chloride [Moles/Vol] 103 mmol/L Normal 98-107 [facility] Comment on above: Performed By: #### C MP ####[facility] [place] Hcjguausui3623 [place] [address]Dr. Bhavani Barragan CO2 [Moles/Vol] 24.7 mmol/L Normal 21.0-32.[address] [facility] Comment on above: Performed By: #### C MP ####[facility] [place] Wkrvbccrho4706 [place] [address]Dr. Bhavani Barragan Creatinine [Mass/Vol] 1.07 mg/dL Critically high 0.55-1.02 [facility] Comment on above: Performed By: #### C MP ####[facility] [place] Zdjkvcrpyc[address] [place], [place] [address]Dr. Bhavani Laurel EGFR-[place] 60 mL/min/1.73m2 Normal >=60 [facility] Comment on above: Performed By: #### C MP ####[facility] [place] Kuralmddum[address] [place], [place] [address]Dr. Bhavani Laurel EGFR-NON AF [place]IZ[place] 49 mL/min/1.73m2 Critically low >=60 [facility] Comment on above: Performed By: #### C MP ####[facility] [place] Opemdsmpni8752 [place] [address]Dr. Bhavani Laurel Globulin (S) [Mass/Vol] 3.8 g/dL Normal [facility] Comment on above: Performed By: #### C MP ####[facility] [place] Tlghlcfksj8611 [place] [address]Dr. Bhavani Laurel Glucose [Mass/Vol] 140 mg/dL Critically high 74-106 [facility] Comment on above: Performed By: #### C MP ####[facility] [place] Fztjfzatox2133 [place] [address]Dr. Bhavani Laurle Potassium [Moles/Vol] 3.8 mmol/L Normal 3.5-5.1 [facility] Comment on above: Performed By: #### C MP ####[facility] [place] Vusfeubiys[address] [place], [place] [address]Dr. Bhavani Braragan Protein [Mass/Vol] 6.2 g/dL Critically low 6.4-8.2 [facility] Comment on above: Performed By: #### C MP ####[facility] [place] Vaswdstcpo[address] [place], [place] [address]Dr. Bhavani Barragan Sodium [Moles/Vol] 132 mmol/L Critically low 136-145 [facility] Comment on above: Performed By: #### C MP ####[facility] [place] Xluktrsfag05[address] [place], [place] [address]Dr. Bhavani Barragan Urea nitrogen [Mass/Vol] 15.0 mg/dL Normal 7.0-18.0 [facility] Comment on above: Performed By: #### C MP ####[facility] [place] Qgkraqcpyu412[address] [place], [place] [address]Dr. Bhavani Barragan Urea nitrogen/Creatinine [Mass ratio] 14.0 mg/mg Normal [facility] Comment on above: Performed By: #### C MP ####[facility] [place] Gtizntjhiz[address] [place], [place] [address]Dr. Bhavani Barragan PROTIMEon 03-27-2022 INR Coag (PPP) [Relative time] 1.37 {INR} Normal [facility] Comment on above: Performed By: #### P T, PTT ####[facility] [place] Fboxbocabz[address] [place], [place] [address]Dr. Bhavani Barragan INR GUIDELINES SEE BELOW Normal [facility] Comment on above: Result Comment: WALKER RED INR: 2.0 - 3.0 CONDITIONS NOT LISTED BELOW 2.5 - 3.5 FOR PROSTHETIC HEART VALVE REPLACEMENT 2.5 - 3.5 RECURRENT THROMBOSIS Performed By: #### P T, PTT ####[facility] [place] Mnqjsyjbkb79[address] [place], [place] [address]Dr. Bhavani Barragan PT Coag (PPP) [Time] 14.5 s Critically high 9.0-11.6 [facility] Comment on above: Performed By: #### P T, PTT ####[facility] [place] Ynfhiedagf80[address] [place], [place] [address]Dr. Bhavani Barragan PTTon 03-27-2022 aPTT Coag (Bld) [Time] 34.2 s Normal 22.3-36.2 [facility] [place] Comment on above: Performed By: #### P T, PTT ####[facility] [place] Sdbebelcrm[address] [place], [place] [address]Dr. Bhavani Barragan XR ABD FLAT_UPon 03-27-2022 XR ABD FLAT_UP Normal [facility] XR CHEST 1 Von 03-27-2022 XR CHEST 1 V Normal [facility] [place] AMMONIAon 03-26-2022 Ammonia (P) [Moles/Vol] 26 umol/L Normal 11-32 [facility] [place] Comment on above: Performed By: #### A MM ####[facility] [place] Wggajtmoqv6[address] [place], [place] [address]Dr. Bhavani Barragan CBC AUTO DIFFon 03-26-2022 BASO # 0.2 103/ul Critically high 0.0-0.[address] [facility] Comment on above: Performed By: #### C BC ####[facility] [place] Aceumafmfl0[address] [place], [place] [address]Dr. Jayceeroxi Barragan Basophils/100 WBC (Bld) 0.8 % Normal 0.2-2.0 [facility] [place] Comment on above: Performed By: #### C BC ####[facility] [place] Zllkfixead[address] [place], [place] [address]Dr. Bhavani Laurel EO # 0.0 103/ul Normal 0.0-0.7 [facility] [place] Comment on above: Performed By: #### C BC ####[facility] [place] Sfoczwydko[address] [place], [place] [address]Dr. Jayceeroxi Barragan Eosinophils/100 WBC (Bld) 0.1 % Critically low 0.9-7.0 [facility] [place] Comment on above: Performed By: #### C BC ####[facility] [place] Scuvqmrfmd[address] [place], [place] [address]Dr. Bhavani Laurel Erythrocyte distribution width (RBC) [Ratio] 16.0 % Critically high 11.0-15.0 [facility] [place] Comment on above: Performed By: #### C BC ####[facility] [place] Xdtcmespud8153 [place] [address]Dr. Bhavani Barragan Hematocrit (Bld) [Volume fraction] 43.9 % Normal 36.0-48.0 [facility] [place] Comment on above: Performed By: #### C BC ####[facility] [place] Mjwgushcur0881 [place] [address]Dr. Bhavani Barragan Hemoglobin (Bld) [Mass/Vol] 13.6 g/dL Normal 12.0-16.0 [facility] [place] Comment on above: Performed By: #### C BC ####[facility] [place] Jmbaccvgks2291 [place] [address]Dr. Bhavani Barragan IG # 0.78 10e3/ul Critically high 0.00-0.03 [facility] Comment on above: Performed By: #### C BC ####[facility] [place] Jvyqmkdjfb6454 [place] [address]Dr. Bhavani Barragan IG % 3.5 % Critically high 0.0-0.[address] [facility] Comment on above: Performed By: #### C BC ####[facility] [place] Lpjnygmvuo9874 [place] [address]Dr. Bhavani Barragan LYMPH # 0.9 103/ul Critically low 1.2-3.8 [facility] Comment on above: Performed By: #### C BC ####[facility] [place] Szzpqdyhte1302 [place] [address]Dr. Bhavani Barragan Lymphocytes/100 WBC (Bld) 3.9 % Critically low 20.5-60.0 [facility] [place] Comment on above: Performed By: #### C BC ####[facility] [place] Plpylcempz5754 [place] [address]Dr. Bhavani Barragan MANUAL DIFF REQ NO Normal [facility] Comment on above: Performed By: #### C BC ####[facility] [place] Cdletazbkt[address] [place], [place] [address]Dr. Jayceeroxi Barragan MCH (RBC) [Entitic mass] 30.0 pg Normal 26.7-34.0 [facility] [place] Comment on above: Performed By: #### C BC ####[facility] [place] Dlqiwgtyqa2822 [place] [phone]. Bhavani Barragan MCHC (RBC) [Mass/Vol] 31.0 g/dL Normal 29.9-35.2 [facility] [place] Comment on above: Performed By: #### C BC ####[facility] [place] Qxtvrjpyeg5117 [place] [phone]. Bhavani Barragan MCV (RBC) [Entitic vol] 96.9 fL Normal 81.0-99.0 [facility] [place] Comment on above: Performed By: #### C BC ####[facility] [place] Ewfhprzqgs8550 [place] [address]Dr. Bhavani Barragan MONO # 0.6 103/ul Normal 0.3-0.8 [facility] [place] Comment on above: Performed By: #### C BC ####[facility] [place] Payrbxbrly9601 [place] [address]Dr. Jayceeroxi Barragan Monocytes/100 WBC (Bld) 2.7 % Normal 1.7-12.0 [facility] [place] Comment on above: Performed By: #### C BC ####[facility] [place] Tdzxwzmddq3680 [place] [address]Dr. Bhavani Barragan NEUT # 20.1 103/ul Critically high 1.4-6.5 [facility] Comment on above: Performed By: #### C BC ####[facility] [place] Abvvkqlcjj3789 [place] [address]Dr. Bhavani Laurel Neutrophils/100 WBC (Bld) 89.0 % Critically high 43.0-75.0 [facility] [place] Comment on above: Performed By: #### C BC ####[facility] [place] Ghzebftlat1802 [place] [phone]. Bhavani Laurel Platelet mean volume (Bld) [Entitic vol] 9.7 fL Normal 9.5-13.5 [facility] [place] Comment on above: Performed By: #### C BC ####[facility] [place] Rrhcjineio6871 [place] [id number]. Jayceeroxi Barragan PLT 434 103/ul Normal 150-450 [facility] [place] Comment on above: Performed By: #### C BC ####[facility] [place] Zwsmquibyj2619 [place] [address]Dr. Bhavani Barragan RBC 4.53 106/ul Normal 4.20-5.40 [facility] Comment on above: Performed By: #### C BC ####[facility] [place] Ohxzmhpoio3805 [place] [address]Dr. Bhavani Barragan WBC 22.6 103/ul Critically high 4.0-11.[address] [facility] Comment on above: Performed By: #### C BC ####[facility] [place] Tfgkyzbkro0413 [place] [address]Dr. Bhavani Barragan ECHOCARDIO M/2D COMPLETEon 0 03-26-2022 ECHOCARDIO M/2D COMPLETE Normal [facility] POINT OF CARE GLUCOSEon Glucose [Mass/Vol] 166 mg/dL Critically high 74-106 [facility] Comment on above: Performed By: #### P OCGLUC ####[facility] [place] Tluznuqxsm9926 [place] [address]Dr. Bhavani Barragan Glucose [Mass/Vol] 148 mg/dL Critically high 74-106 [facility] Comment on above: Performed By: #### P OCGLUC ####[facility] [place] Rrcgsmyhge[address] [place], [place] [address]Dr. Bhavani Barragan PROF 14(COMP METB)on 022 Albumin [Mass/Vol] 2.4 g/dL Critically low 3.4-5.0 [facility] Comment on above: Performed By: #### C MP ####[facility] [place] Nawpbevajl7245 [place] [address]Dr. Bhavani Barragan Albumin/Globulin [Mass ratio] 0.6 {ratio} Normal [facility] Comment on above: Performed By: #### C MP ####[facility] [place] Kfwgqtncgr1843 [place] [address]Dr. Bhavani Barragan ALP [Catalytic activity/Vol] 310 U/L Critically high 46-116 [facility] Comment on above: Performed By: #### C MP ####[facility] [place] Koivjjwovo6673 [place] [address]Dr. Bhavani Barragan ALT [Catalytic activity/Vol] 194 U/L Critically high 14-59 [facility] Comment on above: Performed By: #### C MP ####[facility] [place] Ckhunbxbtk7212 [place] [address]Dr. Jayceeroxi Laurel Anion gap [Moles/Vol] 8.2 mmol/L Normal [facility] Comment on above: Performed By: #### C MP ####[facility] [place] Ixwvczabxy9[address] [place], [place] [address]Dr. Bhavani Laurel AST [Catalytic activity/Vol] 133 U/L Critically high 15-37 [facility] Comment on above: Performed By: #### C MP ####[facility] [place] Vyzhwjxfbb377[address] [place], [place] [address]Dr. Bhavani Barragan Bilirubin [Mass/Vol] 2.8 mg/dL Critically high 0.2-1.0 [facility] Comment on above: Performed By: #### C MP ####[facility] [place] Orbmwaqenl6[address] [place], [place] [address]Dr. Bhavani Barragan Calcium [Mass/Vol] 7.7 mg/dL Critically low 8.5-10.1 [facility] Comment on above: Performed By: #### C MP ####[facility] [place] Nhvgrumylw22[address] [place], [place] [address]Dr. Bhavani Barragan Chloride [Moles/Vol] 105 mmol/L Normal 98-107 [facility] Comment on above: Performed By: #### C MP ####[facility] [place] Yiphcuvqwc[address] [place], [place] [address]Dr. Bhavani Barragan CO2 [Moles/Vol] 25.8 mmol/L Normal 21.0-32.0 [facility] Comment on above: Performed By: #### C MP ####[facility] [place] Cddzbqxzeb11[address] [place], [place] [address]Dr. Bhavani Barragan Creatinine [Mass/Vol] 1.07 mg/dL Critically high 0.55-1.02 [facility] Comment on above: Performed By: #### C MP ####[facility] [facility] Qnsvypmd[address] [place], [place] [address]Dr. Bhavani Barragan EGFR-AF [place]IZ[place] 60 mL/min/1.73m2 Normal >=60 [facility] Comment on above: Performed By: #### C MP ####[facility] Ot[address]gzdhwo[address] [place] [address]Dr. Bhavani Laurel EGFR-NON AF [place]IZ[place] 49 mL/min/1.73m2 Critically low >=60 [facility] Comment on above: Performed By: #### C MP ####[facility] Wkaqvcohhf[address] [place] [address]Dr. Bhavani Laurel Globulin (S) [Mass/Vol] 3.8 g/dL Normal [facility] Comment on above: Performed By: #### C MP ####[facility] [place] Vaclzquxwp[address] [place], [place] [address]Dr. Bhavani Barragan Glucose [Mass/Vol] 90 mg/dL Normal 74-106 [facility] Comment on above: Performed By: #### C MP ####[facility] [place] Tqyqkyvrga[address] [place], [place] [address]Dr. Bhavani Barragan Potassium [Moles/Vol] 4.0 mmol/L Normal 3.5-5.1 [facility] Comment on above: Performed By: #### C MP ####[facility] [place] Dzimqkrgqe[address] [place], [place] [address]Dr. Jayceeroxi Laurel Protein [Mass/Vol] 6.2 g/dL Critically low 6.4-8.2 [facility] Comment on above: Performed By: #### C MP ####[facility] Lebjvkvecu[address] [place], [place] [address]Dr. Bhavani Barragan Sodium [Moles/Vol] 135 mmol/L Critically low 136-145 [facility] Comment on above: Performed By: #### C MP ####[facility] [place] Vcgdzxbadn9[address] [place], [place] [address]Dr. Bhavani Barragan Urea nitrogen [Mass/Vol] 14.0 mg/dL Normal 7.0-18.0 [facility] Comment on above: Performed By: #### C MP ####[facility] Aanevafvtz[address] [place], [place] [address]Dr. Bhavani Barragan Urea nitrogen/Creatinine [Mass ratio] 13.1 mg/mg Normal [facility] Comment on above: Performed By: #### C MP ####[facility] Umhuoainyv[address] [place], [place] [address]DrLydia Barragan PROTIMEon 03-26-2022 INR Coag (PPP) [Relative time] 1.31 {INR} Normal [facility] Comment on above: Performed By: #### P T, PTT ####[facility] Uixeaddmxl[address] [place], [place] [address]DrLydia Barragan INR GUIDELINES SEE BELOW Normal [facility] Comment on above: Result Comment: WALKER RED INR: 2.0 - 3.0 CONDITIONS NOT LISTED BELOW 2.5 - 3.5 FOR PROSTHETIC HEART VALVE REPLACEMENT 2.5 - 3.5 RECURRENT THROMBOSIS Performed By: #### P T, PTT ####[facility] Giaocysznk7[address] [place], [place] [address]Dr. Bhavani Barragan PT Coag (PPP) [Time] 13.9 s Critically high 9.0-11.6 [facility] Comment on above: Performed By: #### P T, PTT ####[facility] Untsakemeh[address] [place], [place] [address]DrLydia Barragan PTTon 03-26-2022 aPTT Coag (Bld) [Time] 32.8 s Normal 22.3-36.2 [facility] Comment on above: Performed By: #### P T, PTT ####[facility] Vihvmqssts[address] [place], [place] [address]Dr. Bhavani Barragan AMMONIAon 03-25-2022 Ammonia (P) [Moles/Vol] 17 umol/L Normal 11-32 [facility] Comment on above: Performed By: #### A MM ####[facility] Byrtixqbng[address]64[address] [place], [place] [address]DrLydia Barragan CBC W MANUAL DIFFon 03-25-20 22 ATYPICAL LYMPH # Normal [facility] Comment on above: Performed By: #### C BCMAN ####[facility] Dszlxkfqrz89[address] [place], [place] [address]Dr. Yilan Barragan ATYPICAL LYMPH % Normal [facility] Comment on above: Performed By: #### C BCMAN ####[facility] I[address]gskartu[address] [place] [id number]. Bhavani Barragan BAND # 0.3 103/ul Normal 0.0-0.3 [facility] Comment on above: Performed By: #### C BCMAN ####[facility] Bubwluiwjx[address] [place] [address]Dr. Jayceelan Barragan BAND % 1 % Normal 0-5 [facility] Comment on above: Performed By: #### C BCJERSON ####[facility] Ivxnxoflhx57[address] [place] [address]Dr. Bhavani Barragan BASOM # 0.27 103/ul Critically high 0.00-0.10 [facility] Comment on above: Performed By: #### C BCJERSON ####[facility] [place] Dopksgiqri37[address] [place] [address]Dr. Bhavani Barragan BASOM % 1.0 % Normal 0.2-2.0 [facility] Comment on above: Performed By: #### C BCJERSON ####[facility] [place] Uizbxkpeks6[address] [place] [address]Dr. Bhavani Barragan BLAST # Normal [facility] Comment on above: Performed By: #### C BCJERSON ####[facility] [place] Nthniifxzd6[address] [place] [id number]. Bhavani Barragan BLAST % Normal [facility] Comment on above: Performed By: #### C BCJERSON ####[facility] [place] Kmuqzhuynf[address] [place] [address]Dr. Bhavani Barragan CORRECTED WBC Normal 4.0-11.0 [facility] Comment on above: Performed By: #### C OMID ####[facility] Waevdnkkri9[address] [place] [address]Dr. Bhavani Barragan EOS # 0.00 103/ul Normal 0.00-0.70 [facility] Comment on above: Performed By: #### C BCJERSON ####[facility] [place] Trmpgfdktb90[address] [place], [place] [address]Dr. Bhavani Barragan EOS% 0.0 % Critically low 0.9-7.0 [facility] Comment on above: Performed By: #### C OMID ####[facility] [place] Qmvrehjcuu87[address] [place] [address]Dr. Bhavani Barragan HCT 41.6 % Normal 36.0-48.0 [facility] Comment on above: Performed By: #### C OMID ####[facility] Hmdngxvckt7[address] [place] [id number]. Bhavani Barragan HGB 12.8 g/dl Normal 12.0-16.0 [facility] Comment on above: Performed By: #### C OMID ####[facility] Hhytqqlvju[address] [place] [address]Dr. Bhavani Barragan LYMPHM # 0.80 103/ul Critically low 1.20-3.80 [facility] Comment on above: Performed By: #### Jany ANNE ####[facility] Ev[address]irrnma[address] [place] [address]Dr. Bhavani Barragan LYMPHM% 3.0 % Critically low 20.5-60.0 [facility] Comment on above: Performed By: #### Jany ANNE ####[facility] [place] Lbczqrijyc[address] [place], [place] [address]Dr. Bhavani Barragan MCH 29.4 pg Normal 26.7-34.0 [facility] Comment on above: Performed By: #### Jany ANNE ####[facility] Ktjynupwxl[address] [place] [address]Dr. Bhavani Barragan MCHC 30.8 g/dl Normal 29.9-35.2 [facility] Comment on above: Performed By: #### Jany ANNE ####[facility] Hrngkqbmmg35[address] [place] [id number]. Bhavani Barragan MCV 95.6 fL Normal 81.0-99.0 [facility] Comment on above: Performed By: #### Jany ANNE ####[facility] Kujyerxaon4[address] [place] [address]Dr. Bhavani Barragan METAMYELOCYTE # Normal [facility] Comment on above: Performed By: #### C OMID ####[facility] Xqraiialeo8892 [place], [place] [address]Ay. Bhavani Barragan METAMYELOCYTE % Normal [facility] Comment on above: Performed By: #### C OMID ####[facility] Ozvxivbmoq8405 [place], [place] [address]Nj. Bhavani Barragan MONOM# 0.80 103/ul Normal 0.30-0.80 [facility] Comment on above: Performed By: #### Jany ANNE ####[facility] [place] Wmnginijxp6398 [place], [place] [address]Yq. Bhavani Barragan MONOM% 3.0 % Normal 1.7-12.0 [facility] Comment on above: Performed By: #### Jany ANNE ####[facility] [place] Loshbpuazg4203 [place] [phone]. Bhavani Barragan MPV 9.9 fL Normal 9.5-13.5 [facility] Comment on above: Performed By: #### Jany ANNE ####[facility] [place] Qvwufkbgnn66[address] [place] [phone]. Bhavani Barragan MYELOCYTE # Normal [facility] Comment on above: Performed By: #### Jany ANNE ####[facility] [place] Blxtzelhaf23[address] [place] [phone]. Bhavani Barragan MYELOCYTE % Normal [facility] Comment on above: Performed By: #### Jany ANNE ####[facility] [place] Bzoestpzug25[address] [place] [phone]. Bhavani Barragan NRBC Normal [facility] Comment on above: Performed By: #### Jany ANNE ####[facility] [place] Nxlaiesite9136 [place], [place] [address]Ej. Bhavani Barragan PLT 448 103/ul Normal 150-450 [facility] Comment on above: Performed By: #### Jany ANNE ####[facility] Tekrcvbhif9472 [place], [place] [address]Zh. Bhavani Barragan RBC 4.35 106/ul Normal 4.20-5.40 [facility] Comment on above: Performed By: #### Jany ANNE ####[facility] [place] Dzlmbltcur9780 [place], [place] [address]Bt. Bhavani Barragan RDW 16.0 % Critically high 11.0-15.[address] [facility] Comment on above: Performed By: #### C BCMAN ####[facility] [place] Etdzfpmuak0692 [place], [place] [address]Kr. Bhavani Barragan SEG # 24.38 103/ul Critically high 1.40-6.50 The [facility] Comment on above: Performed By: #### C BCMAN ####[facility] [place] Affaovjoqp58[address] [place] [id number]. Bhavani Barragan SEG % 92.0 % Critically high 43.0-75.[address] [facility] Comment on above: Performed By: #### C OMID ####[facility] [place] Alyhvfeqzf1760 [place] [phone]. Bhavani Barragan WBC 26.5 103/ul Critically high 4.0-11.0 [facility] Comment on above: Performed By: #### C BCJERSON ####[facility] [place] F[address]hsayyu[address] [place] [phone]. Bhavani Barragan DIFFERENTIAL MANUALon 2021 ATYPICAL LYMPH # Normal [facility] Comment on above: Performed By: #### D IFF ####[facility] [place] Ganqlgoijb8981 [place] [phone]. Bhavani Barragan ATYPICAL LYMPH % Normal [facility] Comment on above: Performed By: #### D IFF ####[facility] [place] Chtrvyfyzs74[address] [place] [phone]. Bhavani Barragan BAND # 0.3 103/ul Normal 0.0-0.3 [facility] Comment on above: Performed By: #### D IFF ####[facility] [place] Vikjfiiqeg75[address] [place] [address]Dr. Bhavani Barragan BAND % 1 % Normal 0-5 [facility] Comment on above: Performed By: #### D IFF ####[facility] [place] Vcaeftjede1523 [place] [phone]. Bhavani Barragan BASOM # 0.27 103/ul Critically high 0.00-0.10 [facility] Comment on above: Performed By: #### D IFF ####[facility] [place] Tpfurjzwaf8[address] [place] [address]Dr. Bhavani Barragan BASOM % 1.0 % Normal 0.2-2.0 The [facility] Comment on above: Performed By: #### D IFF ####[facility] [place] Wdubjgbjok85[address] [place] [address]Dr. Bhavani Barragan BLAST # Normal [facility] Comment on above: Performed By: #### D IFF ####[facility] [place] Rbmkrztdgi9550 [place] [address]Dr. Bhavani Barragan BLAST % Normal [facility] Comment on above: Performed By: #### D IFF ####[facility] [place] Poryfcogdq6[address] [place], [place] [address]Dr. Bhavani Barragan CORRECTED WBC Normal 4.0-11.0 [facility] Comment on above: Performed By: #### D IFF ####[facility] [place] Qepfcwcvxh98[address] [place], [place] [address]Dr. Bhavani Barragan EOS # 0.00 103/ul Normal 0.00-0.70 [facility] Comment on above: Performed By: #### D IFF ####[facility] [place] Ovgakiwhep56[address] [place], [place] [address]Dr. Bhavani Barragan EOS% 0.0 % Critically low 0.9-7.0 [facility] Comment on above: Performed By: #### D IFF ####[facility] [place] Rzdfafgraj[address] [place], [place] [address]Dr. Bhavani Barragan LYMPHM # 0.80 103/ul Critically low 1.20-3.[address] [facility] Comment on above: Performed By: #### D IFF ####[facility] Jonjiikzrw09[address] [place], [place] [address]Dr. Bhavani Barragan LYMPHM% 3.0 % Critically low 20.5-60.0 [facility] Comment on above: Performed By: #### D IFF ####[facility] [place] Xpyysnzoxt[address] [place], [place] [address]Dr. Bhavani Barragan METAMYELOCYTE # Normal [facility] Comment on above: Performed By: #### D IFF ####[facility] [place] Ikcwpnqyka2514 [place] [phone]. Bhavani Barragan METAMYELOCYTE % Normal [facility] Comment on above: Performed By: #### D IFF ####[facility] [place] Mjerczcjhn4132 [place] [phone]. Bhavani Barragan MONOM# 0.80 103/ul Normal 0.30-0.80 [facility] Comment on above: Performed By: #### D IFF ####[facility] Ahshderrzg6686 [place] [address]Dr. Bhavani Barragan MONOM% 3.0 % Normal 1.7-12.0 [facility] Comment on above: Performed By: #### D IFF ####[facility] [place] Yrjqcvyvxo5[address] [place], [place] [address]Dr. Bhavani Barragan MYELOCYTE # Normal [facility] Comment on above: Performed By: #### D IFF ####[facility] [place] Kjjsqoqiso24[address] [place], [place] [address]Dr. Bhavani Barragan MYELOCYTE % Normal [facility] Comment on above: Performed By: #### D IFF ####[facility] [place] Najfdktzyz99[address] [place] [address]Dr. Bhavani Barragan NRBC Normal [facility] Comment on above: Performed By: #### D IFF ####[facility] [place] Wsjdefvyrx2035 [place] [address]Dr. Bhavani Barragan SEG # 24.38 103/ul Critically high 1.40-6.50 [facility] Comment on above: Performed By: #### D IFF ####[facility] [place] Amjkhifdms[address]39[address] [place], [place] [address]Dr. Bhavani Barragan SEG % 92.0 % Critically high 43.0-75.0 [facility] Comment on above: Performed By: #### D IFF ####[facility] [place] Vwpgapfxri4[address] [place], [place] [address]Dr. Bhavani Barragan WBC 26.5 103/ul Critically high 4.0-11.[address] [facility] Comment on above: Performed By: #### D IFF ####[facility] [place] Utprauuyxe9[address] [place] [address]Dr. Bhavani Barragan POINT OF CARE GLUCOSEon 05- Glucose [Mass/Vol] 120 mg/dL Critically high 74-106 [facility] Comment on above: Performed By: #### P OCGLUC ####[facility] [place] Sbgiekslyx13[address] [place] [address]Dr. Bhavani Barragan Glucose [Mass/Vol] 98 mg/dL Normal 74-106 [facility] Comment on above: Performed By: #### P OCGLUC ####[facility] [place] Nnhhufpbfp1194 [place] [address]Dr. Bhavani Barragan PROF 14(COMP METB)on 022 Albumin [Mass/Vol] 2.3 g/dL Critically low 3.4-5.0 [facility] Comment on above: Performed By: #### C MP ####[facility] [place] Lkdobrklxj9[address] [place] [address]Dr. Bhavani Barragan Albumin/Globulin [Mass ratio] 0.6 {ratio} Normal [facility] Comment on above: Performed By: #### C MP ####[facility] [place] Zlcjkljzpf78[address] [place] [address]Dr. Bhavani Barragan ALP [Catalytic activity/Vol] 309 U/L Critically high 46-116 [facility] Comment on above: Performed By: #### C MP ####[facility] [place] Mzscapbkfh67[address] [place] [address]Dr. Bhavani Barragan ALT [Catalytic activity/Vol] 163 U/L Critically high 14-59 [facility] Comment on above: Performed By: #### C MP ####[facility] [place] Ytppwhjzej5308 [place] [address]Dr. Bhavani Barragan Anion gap [Moles/Vol] 12.2 mmol/L Normal [facility] Comment on above: Performed By: #### C MP ####[facility] [place] Jqsmneenot9783 [place] [phone]. Bhavani Barragan AST [Catalytic activity/Vol] 103 U/L Critically high 15-37 [facility] Comment on above: Performed By: #### C MP ####[facility] [place] Fjekcyzhgz6764 [place] [phone]. Bhavani Barragan Bilirubin [Mass/Vol] 1.5 mg/dL Critically high 0.2-1.0 The [facility] Comment on above: Performed By: #### C MP ####[facility] [place] Beabfhxflu0204 [place] [address]Dr. Bhavani Barragan Calcium [Mass/Vol] 7.3 mg/dL Critically low 8.5-10.1 Th e [facility] [place] Comment on above: Performed By: #### C MP ####[facility] [place] Rybxyixbac[address] [place], [place] [address]Dr. Bhavani Barragan Chloride [Moles/Vol] 107 mmol/L Normal 98-107 [facility] Comment on above: Performed By: #### C MP ####[facility] [place] Dopcdoinmd[address] [place], [place] [address]Dr. Bhavani Barragan CO2 [Moles/Vol] 21.9 mmol/L Normal 21.0-32.0 [facility] Comment on above: Performed By: #### C MP ####[facility] [place] Ouzsxnesbw[address] [place], [place] [address]Dr. Bhavani Barragan Creatinine [Mass/Vol] 1.22 mg/dL Critically high 0.55-1.02 [facility] Comment on above: Performed By: #### C MP ####[facility] [place] Pvbuvayajv3575 [place] [id number]. Bhavani Barragan EGFR-AF [place] 51 mL/min/1.73m2 Critically low >=60 The [facility] Comment on above: Performed By: #### C MP ####[facility] [place] Klcbyjgkel0780 [place] [id number]. Bhavani Barragan EGFR-NON AF [place] 42 mL/min/1.73m2 Critically low >=60 The [facility] Comment on above: Performed By: #### C MP ####[facility] Browaphkmp1215 [place] [phone]. Bhavani Barragan Globulin (S) [Mass/Vol] 3.7 g/dL Normal [facility] Comment on above: Performed By: #### C MP ####[facility] [place] Ywwrosmlgd3265 [place] [address]Dr. Bhavani Barragan Glucose [Mass/Vol] 165 mg/dL Critically high 74-106 [facility] Comment on above: Performed By: #### C MP ####[facility] [place] Wusmwwaxrj2771 [place] [address]Dr. Bhavani Barragan Potassium [Moles/Vol] 4.1 mmol/L Normal 3.5-5.1 [facility] Comment on above: Performed By: #### C MP ####[facility] [place] Qkhdtgvdok8[address] [place], [place] [address]Dr. Bhavani Barragan Protein [Mass/Vol] 6.0 g/dL Critically low 6.4-8.2 [facility] Comment on above: Performed By: #### C MP ####[facility] [place] Deijbgxegi2157[address] [place], [place] [address]Dr. Bhavani Barragan Sodium [Moles/Vol] 137 mmol/L Normal 136-145 [facility] Comment on above: Performed By: #### C MP ####[facility] [place] Nvqgziypec6355[address] [place], [place] [address]Dr. Bhavani Barragan Urea nitrogen [Mass/Vol] 18.0 mg/dL Normal 7.0-18.0 [facility] Comment on above: Performed By: #### C MP ####[facility] [place] Vyakbrjyve0095[address] [place], [place] [address]Dr. Bhavani Barragan Urea nitrogen/Creatinine [Mass ratio] 14.8 mg/mg Normal [facility] Comment on above: Performed By: #### C MP ####[facility] [place] Alcymvkkza029[address] [place], [place] [address]Dr. Bhavani Barragan PROTIMEon 03-25-2022 INR Coag (PPP) [Relative time] 1.18 {INR} Normal [facility] Comment on above: Performed By: #### P TT, PT ####[facility] [place] Uhmygixmph4175 [place] [address]Dr. Bhavani Barragan INR GUIDELINES SEE BELOW Normal [facility] Comment on above: Result Comment: WALKER RED INR: 2.0 - 3.0 CONDITIONS NOT LISTED BELOW 2.5 - 3.5 FOR PROSTHETIC HEART VALVE REPLACEMENT 2.5 - 3.5 RECURRENT THROMBOSIS Performed By: #### P TT, PT ####[facility] [place] Ogqbuvqjvg67[address] [place], [place] [address]Dr. Bhavani Barragan PT Coag (PPP) [Time] 12.6 s Critically high 9.0-11.6 [facility] [place] Comment on above: Performed By: #### P TT, PT ####[facility] [place] Dgfeankryq0107[address] [place], [place] [address]Dr. Bhavani Barragan PTTon 03-25-2022 aPTT Coag (Bld) [Time] 30.6 s Normal 22.3-36.2 [facility] [place] Comment on above: Performed By: #### P TT, PT ####[facility] [place] Lddudahzjy59[address] [place], [place] [address]Dr. Bhavani Barragan AMMONIAon 03-24-2022 Ammonia (P) [Moles/Vol] 38 umol/L Critically high 11-32 The [facility] [place] Comment on above: Performed By: #### A MM ####[facility] [place] Jnnxtwebfj5280[address] [place], [place] [address]Dr. Bhavain Barragan BNPon 03-24-2022 Natriuretic peptide B (Bld) [Mass/Vol] 2420.0 pg/mL Critically high <=1,800.0 The [facility] [place] Comment on above: Result Comment: repe ated Performed By: #### B CONSTRUCTION LABORER, CMP ####[facility] [place] Hvqplxtrlt35[address] [place], [place] [address]Dr. Bhavani Barragan CARDIAC ANDREA 3-6on 2 CK [Catalytic activity/Vol] 20 U/L Critically low 26-192 [facility] [place] Comment on above: Performed By: #### C MREP ####[facility] [place] Dpzidvxfxv23[address] [place], [place] [address]Dr. Bhavani Barragan CK.MB [Mass/Vol] ng/mL Normal <=3.60 [facility] Comment on above: Performed By: #### C MREP ####[facility] [place] Tdrawmeooo7409 [place] [address]Dr. Bhavani Barragan HSTROP 42.4 pg/mL Normal 4.0-51.3 The [facility] [place] Comment on above: Result Comment: CUT- OFF POINTS HAVE BEEN ESTABLISHED BASED ON THE FOURTH UNIVERSAL DEFINITIONS OF MYOCARDIALINFARCTION. THE UPPER REFERENCE LIMIT (URL) OF TROPONIN, DEFINED THE 99TH PERCENTILE OFcTnI DISTRIBUTION IN A REFERENCE POPULATION, HAS BEEN CONFIRMED THE DECISION THRESHOLDFOR IA DIAGNOSIS. Performed By: #### C MREP ####[facility] [place] Wdmujpjkxs35[address] [place] [address]Dr. Bhavani Barragan CK [Catalytic activity/Vol] 17 U/L Critically low 26-192 [facility] Comment on above: Performed By: #### C MREP ####[facility] [place] Dpvkizhacg[address] [place], [place] [address]Dr. Jayceeroxi Barragan CK.MB [Mass/Vol] 0.51 ng/mL Normal <=3.60 [facility] Comment on above: Performed By: #### C MREP ####[facility] [place] Qmcerbkhvm76[address] [place], [place] [address]Dr. Bhavani Laurel HSTROP 45.4 pg/mL Normal 4.0-51.3 [facility] [place] Comment on above: Result Comment: CUT- OFF POINTS HAVE BEEN ESTABLISHED BASED ON THE FOURTH UNIVERSAL DEFINITIONS OF MYOCARDIALINFARCTION. THE UPPER REFERENCE LIMIT (URL) OF TROPONIN, DEFINED THE 99TH PERCENTILE OFcTnI DISTRIBUTION IN A REFERENCE POPULATION, HAS BEEN CONFIRMED THE DECISION THRESHOLDFOR IA DIAGNOSIS. Performed By: #### C MREP ####[facility] [place] Zwjszdqxab09[address] [place] [address]Dr. Bhavani Barragan CBC W MANUAL DIFFon 03-24-20 22 ANISOCYTOSIS 1+ Normal [facility] [facility] Comment on above: Performed By: #### C BCMAN ####[facility] [place] S[address]klb[address] [place] [address]Dr. Bhavani Barragan ATYPICAL LYMPH # Normal [facility] Comment on above: Performed By: #### C OMID ####[facility] [place] Gfltievdyg4[address] [place] [id number]. Bhavani Barragan ATYPICAL LYMPH % Normal [facility] Comment on above: Performed By: #### C OMID ####[facility] [place] Aqgkzrcsgp9665 [place], [place] [address]Mv. Yilan Barragan BAND # 0.8 103/ul Critically high 0.0-0.[address] [facility] Comment on above: Performed By: #### C OMID ####[facility] [place] Llyzwuscga8[address] [place] [id number]. Yilan Barragan BAND % 3 % Normal 0-5 [facility] [place] Comment on above: Performed By: #### C OMID ####[facility] [place] Laurlfkcbk[address] [place] [address]Dr. Bhavani Barragan BASOM # 0.00 103/ul Normal 0.00-0.10 [facility] [place] Comment on above: Performed By: #### C OMID ####[facility] [place] Xvzhrwztch[address] [place] [address]Dr. Bhavani Barragan BASOM % 0.0 % Critically low 0.2-2.0 [facility] Comment on above: Performed By: #### C OMID ####[facility] [place] Ppbgoxgpwn[address] [place] [address]Dr. Yiroxi Barragan BLAST # Normal [facility] [place] Comment on above: Performed By: #### C OMID ####[facility] [place] Vkftzlflnz[address] [place] [address]Dr. Yilan Barragan BLAST % Normal [facility] [place] Comment on above: Performed By: #### C OMID ####[facility] [place] Fzgolelwhz[address] [place] [address]Dr. Bhavani Barragan CORRECTED WBC Normal 4.0-11.0 [facility] Comment on above: Performed By: #### C OMID ####[facility] [place] Qkumzqpalx3103 [place] [id number]. Jayceelan Barragan EOS # 0.00 103/ul Normal 0.00-0.70 [facility] [place] Comment on above: Performed By: #### Jany ANNE ####[facility] [place] Thyygliohf4205 [place], [place] [address]Pv. Bhavani Barragan EOS% 0.0 % Critically low 0.9-7.0 [facility] Comment on above: Performed By: #### Jany ANNE ####[facility] [place] Ptgfxrtuan7669 [place], [place] [address]Mw. Bhavani Barragan HCT 44.0 % Normal 36.0-48.0 [facility] [place] Comment on above: Performed By: #### C OMID ####[facility] [place] Lbchtpnfmq8558 [place], [place] [address]Bm. Bhavani Barragan HGB 13.3 g/dl Normal 12.0-16.0 [facility] [place] Comment on above: Performed By: #### Jany ANNE ####[facility] [place] R[address]aufmkce[address] [place] [id number]. Bhavani Barragan LYMPHM # 1.08 103/ul Critically low 1.20-3.[address] [facility] Comment on above: Performed By: #### Jany ANNE ####[facility] [place] Vwvxkshlts2405 [place], [place] [address]Oc. Bhavani Barragan LYMPHM% 4.0 % Critically low 20.5-60.0 [facility] Comment on above: Performed By: #### Jany ANNE ####[facility] [place] Hawtpdvycr7067 [place], [place] [address]Io. Bhavani Barragan MCH 29.6 pg Normal 26.7-34.0 [facility] [place] Comment on above: Performed By: #### Jany ANNE ####[facility] [place] Jkhojgqkoc1080 [place], [place] [address]Lw. Bhavani Barragan MCHC 30.2 g/dl Normal 29.9-35.2 [facility] [place] Comment on above: Performed By: #### Jnay ANNE ####[facility] [place] Lhotbjeomb6641 [place], [place] [address]Lv. Bhavani Barragan MCV 97.8 fL Normal 81.0-99.0 [facility] [place] Comment on above: Performed By: #### Jany ANNE ####[facility] [place] Lpjtlemgom2796 [place] [id number]. Bhavani Barragan METAMYELOCYTE # Normal [facility] Comment on above: Performed By: #### C OMID ####[facility] [place] Vlbosnxsex5100 [place] [id number]. Bhavani Barragan METAMYELOCYTE % Normal [facility] Comment on above: Performed By: #### C OMID ####[facility] [place] Znvcjeounl0123 [place] [address]Dr. Bhavani Barragan MONOM# 0.54 103/ul Normal 0.30-0.80 [facility] Comment on above: Performed By: #### C OMID ####[facility] [place] Uzrshnygwi6855 [place] [address]Dr. Bhavani Barragan MONOM% 2.0 % Normal 1.7-12.0 [facility] Comment on above: Performed By: #### C OMID ####[facility] [place] Vdsoc[address]vv[address] [place], [place] [address]Dr. Bhavani Barragan MPV 10.3 fL Normal 9.5-13.5 [facility] Comment on above: Performed By: #### C OMID ####[facility] [place] Fkcrmrrwxq[address] [place], [place] [address]Dr. Bhavani Barragan MYELOCYTE # Normal [facility] [place] Comment on above: Performed By: #### C OMID ####[facility] [place] Ynjwpdianh2909 [place] [address]Dr. Bhavani Barragan MYELOCYTE % Normal [facility] [place] Comment on above: Performed By: #### C OMID ####[facility] [place] Hmilsxndhc3761 [place] [address]Dr. Bhavani Barragan NRBC Normal [facility] [place] Comment on above: Performed By: #### C OMID ####[facility] [place] Byamjwpdyo5145 [place] [address]Dr. Bhavani Barragan PLT 424 103/ul Normal 150-450 [facility] [place] Comment on above: Performed By: #### C OMID ####[facility] [place] Rbcrmqiewj3517 [place] [address]Dr. Bhavani Barragan RBC 4.50 106/ul Normal 4.20-5.40 [facility] Comment on above: Performed By: #### C OMID ####[facility] [place] Vbahkpwzah7785 [place] [address]Dr. Bhavani Barragan RDW 15.9 % Critically high 11.0-15.0 [facility] Comment on above: Performed By: #### C OMID ####[facility] [place] Gjvphjjmij6017 [place] [address]Dr. Bhavani Barragan SEG # 24.48 103/ul Critically high 1.40-6.50 [facility] Comment on above: Performed By: #### C OMID ####[facility] [place] Fdzueqtizc2614 [place] [address]Dr. Bhavani Barragan SEG % 91.0 % Critically high 43.0-75.0 [facility] Comment on above: Performed By: #### C OMID ####[facility] [place] Njqggrsspg7194 [place] [address]Dr. Bhavani Barragan WBC 26.9 103/ul Critically high 4.0-11.[address] [facility] Comment on above: Performed By: #### C OMID ####[facility] [place] Fvhxixayvz8041 [place] [address]Dr. Bhavani Barragan CULTURE URINEon 03-24-2022 CULTURE URINE Normal [facility] Comment on above: Performed By: #### U RCX ####[facility] [place] Trmsgikoao7787 [place] [address]Dr. Bhavani Barragan POINT OF CARE GLUCOSEon 05- Glucose [Mass/Vol] 113 mg/dL Critically high 74-106 [facility] Comment on above: Performed By: #### P OCGLUC ####[facility] [place] Wdgiilujum3194 [place] [address]Dr. Bhavani Barragan Glucose [Mass/Vol] 103 mg/dL Normal 74-106 [facility] Comment on above: Performed By: #### P OCGLUC ####[facility] [place] Gcowuaqpqc6670 [place] [address]Dr. Bhavani Barragan Glucose [Mass/Vol] 134 mg/dL Critically high 74-106 [facility] Comment on above: Performed By: #### P OCGLUC ####[facility] [place] Ypnvchkaat119[address] [place] [address]Dr. Jayceeroxi Barragan PROF 14(COMP METB)on 022 Albumin [Mass/Vol] 2.3 g/dL Critically low 3.4-5.0 [facility] Comment on above: Performed By: #### B CONSTRUCTION LABORER, CMP ####[facility] [place] Odrprcbwkr[address] [place], [place] [address]Dr. Bhavani Barragan Albumin/Globulin [Mass ratio] 0.6 {ratio} Normal [facility] Comment on above: Performed By: #### B CONSTRUCTION LABORER, CMP ####[facility] [place] Lerrkxjgkg[address] [place], [place] [address]Dr. Bhavani Barragan ALP [Catalytic activity/Vol] 239 U/L Critically high 46-116 [facility] Comment on above: Performed By: #### B CONSTRUCTION LABORER, CMP ####[facility] [place] Lfunbhwfcb63[address] [place], [place] [address]Dr. Bhavani Barragan ALT [Catalytic activity/Vol] 185 U/L Critically high 14-59 [facility] Comment on above: Performed By: #### B CONSTRUCTION LABORER, CMP ####[facility] [place] Osyqnceqil[address] [place], [place] [address]Dr. Bhavani Barragan Anion gap [Moles/Vol] 13.8 mmol/L Normal [facility] Comment on above: Performed By: #### B CONSTRUCTION LABORER, CMP ####[facility] [place] Fxdowceznc475[address] [place], [place] [address]Dr. Bhavani Barragan AST [Catalytic activity/Vol] 64 U/L Critically high 15-37 [facility] Comment on above: Performed By: #### B CONSTRUCTION LABORER, CMP ####[facility] [place] Fsfxpwnbrd2216[address] [place], [place] [address]Dr. Bhavani Barragan Bilirubin [Mass/Vol] 0.6 mg/dL Normal 0.2-1.0 [facility] Comment on above: Performed By: #### B CONSTRUCTION LABORER, CMP ####[facility] [place] Julewwxmrg118[address] [place], [place] [address]Dr. Bhavani Barragan Calcium [Mass/Vol] 7.3 mg/dL Critically low 8.5-10.1 [facility] Comment on above: Performed By: #### B CONSTRUCTION LABORER, CMP ####[facility] [place] Lllspuncgv3[address] [place], [place] [address]Dr. Bhavani Barragan Chloride [Moles/Vol] 105 mmol/L Normal 98-107 [facility] Comment on above: Performed By: #### B CONSTRUCTION LABORER, CMP ####[facility] [place] Uolphittdp[address]25[address] [place], [place] [address]Dr. Bhavani Barragan CO2 [Moles/Vol] 20.9 mmol/L Critically low 21.0-32.0 [facility] Comment on above: Performed By: #### B CONSTRUCTION LABORER, CMP ####[facility] [place] Gmtnoziydz8[address] [place], [place] [address]Dr. Bhavani Barragan Creatinine [Mass/Vol] 1.24 mg/dL Critically high 0.55-1.02 [facility] Comment on above: Performed By: #### B CONSTRUCTION LABORER, CMP ####[facility] [place] Mafcofascx18[address] [place], [place] [address]Dr. Bhavani Barragan EGFR-[place] 50 mL/min/1.73m2 Critically low >=60 [facility] Comment on above: Performed By: #### B CONSTRUCTION LABORER, CMP ####[facility] [place] Buhhmmhakj16[address] [place], [place] [address]Dr. Bhavani Barragan EGFR-NON AF [place]IZ[place] 41 mL/min/1.73m2 Critically low >=60 [facility] Comment on above: Performed By: #### B CONSTRUCTION LABORER, CMP ####[facility] [place] Grbfpssuge4715[address] [place], [place] [address]Dr. Bhavani Barragan Globulin (S) [Mass/Vol] 3.8 g/dL Normal [facility] Comment on above: Performed By: #### B CONSTRUCTION LABORER, CMP ####[facility] [place] Mrhnbdhrof236[address] [place], [place] [address]Dr. Bhavani Barragan Glucose [Mass/Vol] 164 mg/dL Critically high 74-106 [facility] Comment on above: Performed By: #### B CONSTRUCTION LABORER, CMP ####[facility] [place] Jfijvovzbd[address] [place], [place] [address]Dr. Jayceeroxi Barragan Potassium [Moles/Vol] 3.7 mmol/L Normal 3.5-5.1 [facility] Comment on above: Performed By: #### B CONSTRUCTION LABORER, CMP ####[facility] [place] Ahgxqyktxy[address] [place], [place] [address]Dr. Jayceeroxi Barragan Protein [Mass/Vol] 6.1 g/dL Critically low 6.4-8.2 [facility] Comment on above: Performed By: #### B CONSTRUCTION LABORER, CMP ####[facility] [place] Uctxubmovq5464[address] [place], [place] [address]Dr. Bhavani Barragan Sodium [Moles/Vol] 136 mmol/L Normal 136-145 [facility] Comment on above: Performed By: #### B CONSTRUCTION LABORER, CMP ####[facility] [place] Htfrvkthxj[address] [place], [place] [address]Dr. Bhavani Barragan Urea nitrogen [Mass/Vol] 23.0 mg/dL Critically high 7.0-18.0 [facility] Comment on above: Performed By: #### B CONSTRUCTION LABORER, CMP ####[facility] [place] Veieouyody[address] [place], [place] [address]Dr. Bhavani Barragan Urea nitrogen/Creatinine [Mass ratio] 18.5 mg/mg Normal [facility] Comment on above: Performed By: #### B CONSTRUCTION LABORER, CMP ####[facility] [place] Irabybnrfu0[address] [place], [place] [address]Dr. Bhavani Barragan PROTIMEon 03-24-2022 INR Coag (PPP) [Relative time] 1.19 {INR} Normal [facility] Comment on above: Performed By: #### P TT, PT ####[facility] [place] Pddgwogfkw[address] [place], [place] [address]Dr. Bhavani Barragan INR GUIDELINES SEE BELOW Normal [facility] Comment on above: Result Comment: WALKER RED INR: 2.0 - 3.0 CONDITIONS NOT LISTED BELOW 2.5 - 3.5 FOR PROSTHETIC HEART VALVE REPLACEMENT 2.5 - 3.5 RECURRENT THROMBOSIS Performed By: #### P TT, PT ####[facility] [place] Qrrxfyuapx87[address] [place] [address]Dr. Bhavani Barragan PT Coag (PPP) [Time] 12.7 s Critically high 9.0-11.6 [facility] [place] Comment on above: Performed By: #### P TT, PT ####[facility] [place] Xqscfnssap5[address] [place] [address]Dr. Bhavani Barragan PTTon 03-24-2022 aPTT Coag (Bld) [Time] 29.4 s Normal 22.3-36.2 [facility] [place] Comment on above: Performed By: #### P TT, PT ####[facility] [place] Ooaeuclkja[address] [place], [place] [address]Dr. Jayceeroxi Barragan AMMONIAon 03-23-2022 Ammonia (P) [Moles/Vol] 26 umol/L Normal 11-32 [facility] [place] Comment on above: Performed By: #### A MM ####[facility] [place] Ydvvwgwlie[address] [place], [place] [address]Dr. Jayceeroxi Laurel AMYLASEon 03-23-2022 Amylase [Catalytic activity/Vol] 21 U/L Critically low 25-115 [facility] Comment on above: Performed By: #### A MY LIPA, BNP ####[facility] [place] Ecphhkcncw65[address] [place], [place] [address]Dr. Jayceeroxi Laurel BNPon 03-23-2022 Natriuretic peptide B (Bld) [Mass/Vol] 6713.0 pg/mL Critically high <=1,800.0 [facility] [place] Comment on above: Result Comment: repe ated Performed By: #### B CONSTRUCTION LABORER, CMP ####[facility] [place] Cktzawosoa[address] [place], [place] [address]Dr. Bhavani Barragan Natriuretic peptide B (Bld) [Mass/Vol] 6961.0 pg/mL Critically high <=1,800.0 [facility] [place] Comment on above: Performed By: #### A MY, LIPA, BNP ####[facility] [place] Zftacyyxla[address] [place], [place] [address]Dr. Jayceeroxi Barragan CBC W MANUAL DIFFon 03-23-20 ANISOCYTOSIS 1+ Normal [facility] [place] Comment on above: Performed By: #### C BCJERSON ####[facility] [place] Xclsvuecun5[address] [place] [address]Dr. Yilan Barragan ATYPICAL LYMPH # Normal [facility] Comment on above: Performed By: #### C BCMAN ####[facility] [place] Jeferpyauf6[address] [place] [id number]. Yilan Barragan ATYPICAL LYMPH % Normal [facility] Comment on above: Performed By: #### C BCJERSON ####[facility] [place] Szaumpaabv16[address] [place] [address]Dr. Yilan Barragan BAND # 0.6 103/ul Critically high 0.0-0.[address] [facility] Comment on above: Performed By: #### C OMID ####[facility] [place] Yvegwrxwlk36[address] [place] [address]Dr. Yilan Barragan BAND % 2 % Normal 0-5 [facility] [place] Comment on above: Performed By: #### C OMID ####[facility] [place] Aluuzuucja35[address] [place], [place] [address]Dr. Yilan Barragan BASOM # 0.00 103/ul Normal 0.00-0.10 [facility] [place] Comment on above: Performed By: #### C OMID ####[facility] [place] Igvusiyqid[address] [place], [place] [address]Dr. Yilan Barragan BASOM % 0.0 % Critically low 0.2-2.0 [facility] Comment on above: Performed By: #### C OMID ####[facility] [place] Afgheavbmz67[address] [place], [place] [address]Dr. Yilan Barragan BLAST # Normal [facility] [place] Comment on above: Performed By: #### C OMID ####[facility] [place] Sxlerlykif[address] [place], [place] [address]Dr. Yilan Barragan BLAST % Normal [facility] [place] Comment on above: Performed By: #### C BCJERSON ####[facility] [place] Wqpbniuygf98[address] [place], [place] [address]Dr. Jayceelan Barragan CORRECTED WBC Normal 4.0-11.0 [facility] Comment on above: Performed By: #### C BCJERSON ####[facility] [place] Ncxbuyilsn1408 [place], [place] [address]De. Bhavani Barragan EOS # 0.30 103/ul Normal 0.00-0.70 [facility] [place] Comment on above: Performed By: #### C OMID ####[facility] [place] Ehbhodopam1211 [place], [place] [address]Cw. Bhavani Barragan EOS% 1.0 % Normal 0.9-7.0 [facility] [place] Comment on above: Performed By: #### C OMID ####[facility] [place] Nbkfuqcuhm4306 [place], [place] [address]Pb. Bhavani Barragan HCT 48.1 % Critically high 36.0-48.[address] [facility] Comment on above: Performed By: #### C OMID ####[facility] [place] Phmldfmepg9550 [place] [address]Dr. Bhavani Barragan HGB 14.6 g/dl Normal 12.0-16.0 [facility] [place] Comment on above: Performed By: #### C OMID ####[facility] [place] Efgqmvjctz0302 [place] [address]Dr. Bhavani Barragan LYMPHM # 0.90 103/ul Critically low 1.20-3.[address] [facility] Comment on above: Performed By: #### C OMID ####[facility] [place] Lzxxlxbesf4373 [place] [address]Dr. Bhavani Barragan LYMPHM% 3.0 % Critically low 20.5-60.0 [facility] Comment on above: Performed By: #### C OMID ####[facility] [place] Tvcmlpjxwp1453 [place], [place] [address]Au. Bhavani Barragan MCH 29.4 pg Normal 26.7-34.0 [facility] [place] Comment on above: Performed By: #### C OMID ####[facility] [place] Njjpvyrlgl8444 [place] [address]Dr. Bhavani Barragan MCHC 30.4 g/dl Normal 29.9-35.2 [facility] [place] Comment on above: Performed By: #### C OMID ####[facility] [place] Lcflnpqmrx7573 [place] [address]Dr. Bhavani Barragan MCV 96.8 fL Normal 81.0-99.0 [facility] [place] Comment on above: Performed By: #### C OMID ####[facility] [place] Drujppmwdo4736 [place] [address]Dr. Bhavani Barragan METAMYELOCYTE # Normal [facility] Comment on above: Performed By: #### C OMID ####[facility] [place] Byvornyiwa7778 [place] [address]Dr. Bhavani Barragan METAMYELOCYTE % Normal [facility] Comment on above: Performed By: #### C OMID ####[facility] [place] Jvcqyjcdyp[address] [place], [place] [address]Dr. Bhavani Barragan MONOM# 0.60 103/ul Normal 0.30-0.80 [facility] Comment on above: Performed By: #### C OMID ####[facility] [place] Btspiobpef[address] [place], [place] [address]Dr. Bhavani Barragan MONOM% 2.0 % Normal 1.7-12.0 [facility] Comment on above: Performed By: #### C OMID ####[facility] [place] Xzmplpnigm[address] [place], [place] [address]Dr. Bhavani Laurel MPV 10.2 fL Normal 9.5-13.5 [facility] Comment on above: Performed By: #### C OMID ####[facility] [place] Afdejqtqxe[address] [place], [place] [address]Dr. Bhavani Barragan MYELOCYTE # Normal [facility] [place] Comment on above: Performed By: #### C OMID ####[facility] [place] Gwgafilorb8004 [place] [id number]. Jayceeroxi Barragan MYELOCYTE % Normal [facility] [place] Comment on above: Performed By: #### C OMID ####[facility] [place] Azwxktmqrs[address] [place], [place] [address]Dr. Bhavani Barragan NRBC Normal [facility] [place] Comment on above: Performed By: #### C OMID ####[facility] [place] Mmokqptuqm[address] [place], [place] [address]Dr. Bhavani Barragan PLT 391 103/ul Normal 150-450 [facility] Comment on above: Performed By: #### C BCMAN ####[facility] [place] Iaiblczuwe8[address] [place] [address]Dr. Bhavani Barragan RBC 4.97 106/ul Normal 4.20-5.40 [facility] Comment on above: Performed By: #### C BCJERSON ####[facility] [place] Birnipsjgy1489 [place] [address]Dr. Bhavani Barragan RDW 15.8 % Critically high 11.0-15.0 [facility] Comment on above: Performed By: #### C BCJERSON ####[facility] [place] Phhduczypf9952 [place] [address]Dr. Bhavani Barragan SEG # 27.60 103/ul Critically high 1.40-6.50 [facility] Comment on above: Performed By: #### C OMID ####[facility] [place] Sqsvrlayms9739 [place] [address]Dr. Bhavani Barragan SEG % 92.0 % Critically high 43.0-75.0 [facility] Comment on above: Performed By: #### C OMID ####[facility] [place] Fa[address]lasbkw[address] [place], [place] [address]Dr. Bhavani Barragan WBC 30.0 103/ul Critically high 4.0-11.[address] [facility] Comment on above: Performed By: #### C OMID ####[facility] [place] Zquhyqebwh3208 [place] [id number]. Bhavani Barragan LIPASEon 03-23-2022 Lipase [Catalytic activity/Vol] 35.0 U/L Critically low 73.0-393.0 [facility] Comment on above: Performed By: #### A MY, LIPA, BNP ####[facility] [place] Vrmpoduwje[address] [place], [place] [address]Dr. Bhavani Barragan POINT OF CARE GLUCOSEon Glucose [Mass/Vol] 141 mg/dL Critically high 74-106 [facility] Comment on above: Performed By: #### P OCGLUC ####[facility] [place] Giapflpoae[address] [place] [address]Dr. Bhavani Barragan Glucose [Mass/Vol] 107 mg/dL Critically high 74-106 [facility] Comment on above: Performed By: #### P OCGLUC ####[facility] [place] Weumwbmrtt[address] [place] [address]Dr. Jayceeroxi Barragan Glucose [Mass/Vol] 152 mg/dL Critically high 74-106 [facility] Comment on above: Performed By: #### P OCGLUC ####[facility] [place] Lidhsqjfkm[address] [place] [address]Dr. Bhavani Barragan PROF 14(COMP METB)on 022 Albumin [Mass/Vol] 2.4 g/dL Critically low 3.4-5.0 [facility] Comment on above: Performed By: #### B CONSTRUCTION LABORER, CMP ####[facility] [place] Fonvkqhjim[address] [place], [place] [address]Dr. Bhavani Barragan Albumin/Globulin [Mass ratio] 0.6 {ratio} Normal [facility] Comment on above: Performed By: #### B CONSTRUCTION LABORER, CMP ####[facility] [place] Sukcruldek[address] [place], [place] [address]Dr. Bhavani Barragan ALP [Catalytic activity/Vol] 298 U/L Critically high 46-116 [facility] Comment on above: Performed By: #### B CONSTRUCTION LABORER, CMP ####[facility] [place] Lb[address]jdvjchs[address] [address] [place], [place] [address]Dr. Bhavani Barragan ALT [Catalytic activity/Vol] 280 U/L Critically high 14-59 [facility] Comment on above: Performed By: #### B CONSTRUCTION LABORER, CMP ####[facility] [place] Orkkeejvoc[address] [place], [place] [address]Dr. Bhavani Barragan Anion gap [Moles/Vol] 15.2 mmol/L Normal [facility] Comment on above: Performed By: #### B CONSTRUCTION LABORER, CMP ####[facility] [place] Xroazclidk4[address] [place], [place] [address]Dr. Bhavani Barragan AST [Catalytic activity/Vol] 146 U/L Critically high 15-37 [facility] Comment on above: Performed By: #### B CONSTRUCTION LABORER, CMP ####[facility] [place] [address]zwakhqt[address] [place] [id number]. Bhavani Barragan Bilirubin [Mass/Vol] 1.8 mg/dL Critically high 0.2-1.0 [facility] Comment on above: Performed By: #### B CONSTRUCTION LABORER, CMP ####[facility] [place] Nnvrjeqmuh6207 [place] [id number]. Bhavani Barragan Calcium [Mass/Vol] 7.7 mg/dL Critically low 8.5-10.1 [facility] Comment on above: Performed By: #### B CONSTRUCTION LABORER, CMP ####[facility] [place] Jpwrnpqesl205[address] [place], [place] [address]Dr. Bhavani Barragan Chloride [Moles/Vol] 105 mmol/L Normal 98-107 [facility] Comment on above: Performed By: #### B CONSTRUCTION LABORER, CMP ####[facility] [place] Ryniicbqww[address] [place], [place] [address]Dr. Bhavani Barragan CO2 [Moles/Vol] 22.0 mmol/L Normal 21.0-32.0 [facility] Comment on above: Performed By: #### B CONSTRUCTION LABORER, CMP ####[facility] [place] Cabsmkvnoe[address] [place], [place] [address]Dr. Bhavani Barragan Creatinine [Mass/Vol] 1.44 mg/dL Critically high 0.55-1.02 [facility] Comment on above: Performed By: #### B CONSTRUCTION LABORER, CMP ####[facility] [place] Wgpnscjpsr7[address] [place], [place] [address]Dr. Bhavani Barragan EGFR-AF [place] 42 mL/min/1.73m2 Critically low >=60 [facility] [place] Comment on above: Performed By: #### B CONSTRUCTION LABORER, CMP ####[facility] [place] Gujzpwobeb[address] [place], [place] [address]Dr. Bhavani Barragan EGFR-NON AF [place]IZ[place] 35 mL/min/1.73m2 Critically low >=60 [facility] [place] Comment on above: Performed By: #### B CONSTRUCTION LABORER, CMP ####[facility] [place] Xpxmjcefkb906[address] [place], [place] [address]Dr. Bhavani Barragan Globulin (S) [Mass/Vol] 4.0 g/dL Normal [facility] [place] Comment on above: Performed By: #### B CONSTRUCTION LABORER, CMP ####[facility] [place] Aqhqmhgmdz467[address] [place], [place] [address]Dr. Bhavani Barragan Glucose [Mass/Vol] 136 mg/dL Critically high 74-106 [facility] Comment on above: Performed By: #### B CONSTRUCTION LABORER, CMP ####[facility] [place] Wrlvuhsjav9634[address] [place], [place] [address]Dr. Jayceeroxi Laurel Potassium [Moles/Vol] 4.2 mmol/L Normal 3.5-5.1 [facility] Comment on above: Performed By: #### B CONSTRUCTION LABORER, CMP ####[facility] [place] Cxugdvkgmz3059[address] [place], [place] [address]Dr. Bhavani Barragan Protein [Mass/Vol] 6.4 g/dL Normal 6.4-8.2 [facility] Comment on above: Performed By: #### B CONSTRUCTION LABORER, CMP ####[facility] [place] Jmhwprxzqz[address] [place], [place] [address]Dr. Bhavani Barragan Sodium [Moles/Vol] 138 mmol/L Normal 136-145 [facility] Comment on above: Performed By: #### B CONSTRUCTION LABORER, CMP ####[facility] [place] Xvozthgpua69[address] [place], [place] [address]Dr. Bhavani Barragan Urea nitrogen [Mass/Vol] 23.0 mg/dL Critically high 7.0-18.0 [facility] Comment on above: Performed By: #### B CONSTRUCTION LABORER, CMP ####[facility] [place] Padedvbict[address] [place], [place] [address]Dr. Bhavani Barragan Urea nitrogen/Creatinine [Mass ratio] 16.0 mg/mg Normal [facility] Comment on above: Performed By: #### B CONSTRUCTION LABORER, CMP ####[facility] [place] Ukettqbklz5[address] [place], [place] [address]Dr. Bhavani Barragan PROTIMEon 03-23-2022 INR Coag (PPP) [Relative time] 1.53 {INR} Normal [facility] Comment on above: Performed By: #### P TT, PT ####[facility] [place] Bpxsbylagy[address] [place], [place] [address]Dr. Bhavani Barragan INR GUIDELINES SEE BELOW Normal [facility] Comment on above: Result Comment: WALKER RED INR: 2.0 - 3.0 CONDITIONS NOT LISTED BELOW 2.5 - 3.5 FOR PROSTHETIC HEART VALVE REPLACEMENT 2.5 - 3.5 RECURRENT THROMBOSIS Performed By: #### P TT, PT ####[facility] [place] [address]hwvtook[address] [place] [address]Dr. Bhavani Barragan PT Coag (PPP) [Time] 16.1 s Critically high 9.0-11.6 [facility] [place] Comment on above: Performed By: #### P TT, PT ####[facility] [place] Mvlfdpqwuo[address] [place], [place] [address]Dr. Bhavani Barragan PTTon 03-23-2022 aPTT Coag (Bld) [Time] 29.9 s Normal 22.3-36.2 [facility] [place] Comment on above: Performed By: #### P TT, PT ####[facility] [place] Kcavoijjsc16[address] [place], [place] [address]Dr. Bhavani Barragan BILIRUBIN CONJUGATED (DIRECT )on 03-22-2022 BILI, CONJUGATED 2.3 mg/dL Critically high 0.0-0.2 [facility] [place] Comment on above: Performed By: #### D RAI ####[facility] [place] Ohtnrgdukm[address] [place], [place] [address]Dr. Bhavani Barragan BNPon 03-22-2022 Natriuretic peptide B (Bld) [Mass/Vol] 2436.0 pg/mL Critically high <=1,800.0 [facility] [place] Comment on above: Result Comment: this BNP was run on specimen from ER drawn on 03/22 at 1606 Performed By: #### B CONSTRUCTION LABORER ####[facility] [place] Bzrjehscnm5[address] [place], [place] [address]Dr. Bhavani Barragan CBC W MANUAL DIFFon 03-22-20 ATYPICAL LYMPH # Normal [facility] Comment on above: Performed By: #### C BCJERSON ####[facility] [place] Wfidrqethq64[address] [place], [place] [address]Dr. Bhavani Barragan ATYPICAL LYMPH % Normal [facility] Comment on above: Performed By: #### C BCMAN ####[facility] [place] Qadcngwloc[address] [place] [id number]. Yilan Barragan BAND # 0.9 103/ul Critically high 0.0-0.[address] [facility] Comment on above: Performed By: #### C BCJERSON ####[facility] [place] Ftmwtxyakf[address] [place] [address]Dr. Yilan Barragan BAND % 3 % Normal 0-5 [facility] [place] Comment on above: Performed By: #### C BCJERSON ####[facility] [place] Qndfdvmilx6[address] [place] [address]Dr. Yilan Barragan BASOM # 0.00 103/ul Normal 0.00-0.10 [facility] [place] Comment on above: Performed By: #### C OMID ####[facility] [place] [address]ahuax[address] [place] [address]Dr. Yilan Barragan BASOM % 0.0 % Critically low 0.2-2.0 [facility] Comment on above: Performed By: #### C OMID ####[facility] [place] [address]rfbtxsmnu[address] [place] [address]Dr. Yilan Barragan BLAST # Normal [facility] [place] Comment on above: Performed By: #### C OMID ####[facility] [place] Yrmqianhgc[address] [place], [place] [address]Dr. Yilan Barragan BLAST % Normal [facility] [place] Comment on above: Performed By: #### C OMID ####[facility] [place] [address]ysstkas[address] [place] [address]Dr. Yilan Barragan CORRECTED WBC Normal 4.0-11.0 [facility] Comment on above: Performed By: #### C OMID ####[facility] [place] Wnivdgbtif[address] [place] [address]Dr. Yilan Barragan EOS # 0.00 103/ul Normal 0.00-0.70 [facility] [place] Comment on above: Performed By: #### C BCJERSON ####[facility] [place] Xxbeyxmgij[address] [place] [address]Dr. Yilan Barragan EOS% 0.0 % Critically low 0.9-7.0 [facility] Comment on above: Performed By: #### Jany ANNE ####[facility] [place] Ixxwfc[address]qi8[address] [place], [place] [address]Rl. Bhavani Barragan HCT 44.6 % Normal 36.0-48.0 [facility] Comment on above: Performed By: #### Jany ANNE ####[facility] [place] [address]tgmuj55[address] [place], [place] [address]Lc. Bhavani Barragan HGB 13.9 g/dl Normal 12.0-16.0 [facility] [place] Comment on above: Performed By: #### Jany ANNE ####[facility] [place] Fq[address]yljxr38[address] [place] [id number]. Bhavani Barragan LYMPHM # 0.60 103/ul Critically low 1.20-3.[address] [facility] Comment on above: Performed By: #### Jany ANNE ####[facility] [place] Gfmymwcckr[address] [place] [id number]. Bhavani Barragan LYMPHM% 2.0 % Critically low 20.5-60.0 [facility] Comment on above: Performed By: #### Jany ANNE ####[facility] [place] Xuygualwco[address] [place] [id number]. Bhavani Barragan MCH 29.8 pg Normal 26.7-34.0 [facility] Comment on above: Performed By: #### Jany ANNE ####[facility] [place] Rphbryvpjp[address] [place] [id number]. Bhavani Barragan MCHC 31.2 g/dl Normal 29.9-35.2 [facility] [place] Comment on above: Performed By: #### Jany ANNE ####[facility] [place] Hmcjfovpsa64[address] [place] [id number]. Bhavani Barragan MCV 95.7 fL Normal 81.0-99.0 [facility] [place] Comment on above: Performed By: #### Jany ANNE ####[facility] [place] Hsebhxfvxt60[address] [place] [id number]. Bhavani Barragan METAMYELOCYTE # Normal [facility] Comment on above: Performed By: #### Jany ANNE ####[facility] [place] Rbiviqqklr1312 [place] [id number]. Jayceeroxi Barragan METAMYELOCYTE % Normal [facility] Comment on above: Performed By: #### C OMID ####[facility] [place] Yasjojphce9661 [place] [id number]. Bhavani Barragan MONOM# 0.60 103/ul Normal 0.30-0.80 [facility] Comment on above: Performed By: #### C OMID ####[facility] [place] Caq[address]ut[address] [place] [id number]. Bhavani Barragan MONOM% 2.0 % Normal 1.7-12.0 [facility] Comment on above: Performed By: #### C OMID ####[facility] [place] Rjondajhsv1535 [place] [id number]. Bhavani Laurel MPV 9.7 fL Normal 9.5-13.5 [facility] Comment on above: Performed By: #### C OMID ####[facility] [place] Gldvmvpkfd[address] [place], [place] [address]Dr. Bhavani Barragan MYELOCYTE # Normal [facility] Comment on above: Performed By: #### C OMID ####[facility] [place] Ngdjivibrp[address] [place], [place] [address]Dr. Jayceeroxi Barragan MYELOCYTE % Normal [facility] [place] Comment on above: Performed By: #### C OMID ####[facility] [place] Acltlgqghz4083 [place] [id number]. Bhavani Barragan NRBC Normal [facility] [place] Comment on above: Performed By: #### C OMID ####[facility] [place] Uuzwcmzxeq1712 [place] [id number]. Bhavani Barragan PLT 436 103/ul Normal 150-450 [facility] [place] Comment on above: Performed By: #### C OMID ####[facility] [place] Tjyvyebodj3341 [place] [id number]. Jayceeroxi Laurel RBC 4.66 106/ul Normal 4.20-5.40 [facility] [place] Comment on above: Performed By: #### C OMID ####[facility] [place] Ywtjqsudnk[address] [place], [place] [address]Dr. Bhavani Barragan RDW 15.2 % Critically high 11.0-15.[address] [facility] Comment on above: Performed By: #### C OMID ####[facility] [place] Vwmfzpysjv5439 [place] [id number] Barragan SEG # 28.09 103/ul Critically high 1.40-6.50 [facility] Comment on above: Performed By: #### C OMID ####[facility] [place] Eowfoudvxf67[address] [place] [id number] Barragan SEG % 93.0 % Critically high 43.0-75.[address] [facility] Comment on above: Performed By: #### C OMID ####[facility] [place] Yhotogkhir7209 [place] [address]DrLydia Barragan WBC 30.2 103/ul Critically high 4.0-11.0 [facility] Comment on above: Result Comment: test repeated critical value verified Performed By: #### C OMID ####[facility] [place] Haurmsdozv7[address] [place] [address]DrLydia Barragan CULTURE BLOODon 03-22-2022 Microscopic examination of blood, culture Culture Observations: NO GROWTH AT 5 DAYS. Normal The [facility] [place] Comment on above: Performed By: #### B LDCX2 ####[facility] [place] Etonrujruv7[address] [place] [id number] Barragan Performed By: #### B LDCX1 ####[facility] [place] Pjfeirzfmu38[address] [place] [address]DrLydia Barragan Covid-19 PCR ([facility])on SARS-CoV-2 (COVID-19) RNA MATTHEW+probe Ql (Unsp spec) Not detected Normal NOT DETECTED The [facility] [place] Comment on above: Result Comment: When diagnostic [...] for this test is supported by the [place] of Health and Human Service's declaration that [...] be used). Performed By: #### C VDTBH ####[facility] [place] Ifhequxzcq76[address] [place], [place] [address]Dr. Bhavani Barragan ER URINE PROFILEon 2 Bilirubin Ql (U) MODERATE Abnormal NEGATIVE [facility] Comment on above: Performed By: #### U MICRO, ERUR ####[facility] [place] Hlqwjakhpk40[address] [place], [place] [address]Dr. Bhavani Barragan Clarity (U) CLEAR Normal CLEAR [facility] Comment on above: Performed By: #### U MICRO, ERUR ####[facility] [place] Xsycowpzzo[address] [place], [place] [address]Dr. Bhavani Barragan Color (U) YELLOW Normal YELLOW [facility] Comment on above: Performed By: #### U MICRO, ERUR ####[facility] [place] Xfzuuizbpq311[address] [place], [place] [address]Dr. Bhavani Barragan ERUAHD A micrscopic examination will be performed if indicated. Normal The [facility] [place] Comment on above: Performed By: #### U MICRO, ERUR ####[facility] [place] Fbzwmvetnc8[address] [place], [place] [address]Dr. Bhavani Barragan Glucose Ql (U) Negative Normal NEGATIVE [facility] Comment on above: Performed By: #### U MICRO, ERUR ####[facility] [place] Qpmczjknsb7[address] [place], [place] [address]Dr. Bhavani Barragan Hemoglobin Ql (U) TRACE-INTACT Abnormal NEGATIVE [facility] Comment on above: Performed By: #### U MICRO, ERUR ####[facility] [place] Eqjdtsbcip8[address] [place], [place] [address]Dr. Bhavani Barragan Ketones Ql (U) Negative Normal NEGATIVE [facility] Comment on above: Performed By: #### U MICRO, ERUR ####[facility] [place] Nrzgnrnxsk69[address] [place] [address]Dr. Bhavani Barragan LEUKOCYTES LARGE Abnormal NEGATIVE [facility] Comment on above: Performed By: #### U MICRO, ERUR ####[facility] [place] Lfjanxazdr8067[address] [place], [place] [address]Dr. Bhavani Barragan Nitrite Ql (U) Negative Normal NEGATIVE [facility] Comment on above: Performed By: #### U MICRO, ERUR ####[facility] [place] Dhhjflntse186[address] [place], [place] [address]Dr. Bhavani Barragan pH (U) 5.5 [pH] Normal 5-9 [facility] Comment on above: Performed By: #### U MICRO, ERUR ####[facility] [place] Lnlcahctmw3[address] [place], [place] [address]Dr. Bhavani Barragan Protein (U) [Mass/Vol] 30 mg/dL Abnormal NEGATIVE/ TRACE [facility] Comment on above: Performed By: #### U MICRO, ERUR ####[facility] [place] Uiqlhxyocr[address] [place], [place] [address]Dr. Bhavani Barragan SPEC GRAVITY 1.020 Normal 1.005-<=1.[address] [place] [address] Comment on above: Performed By: #### U MICRO, ERUR ####[facility] [place] Lxevnoonnm[address] [place], [place] [address]Dr. Bhavani Barragan UR MICRO IND INDICATED Normal [facility] [place] Comment on above: Performed By: #### U MICRO, ERUR ####[facility] [place] Egvknynkaa[address] [place], [place] [address]Dr. Bhavani Barragan Urobilinogen Qn (U) 4 {Ridge'U}/dL Abnormal 0.2 - 1.0 [facility] Comment on above: Performed By: #### U MICRO, ERUR ####[facility] [place] Kvnpnsjagp[address] [place], [place] [address]Dr. Bhavani Barragan LACTATE/LACTIC ACIDon 2021 Lactate [Moles/Vol] 0.9 mmol/L Normal 0.4-2.0 [facility] Comment on above: Performed By: #### L ACT ####[facility] [place] Jblefxjsnk[address] [place] [address]Dr. Bhavani Barragan Lactate [Moles/Vol] 1.2 mmol/L Normal 0.4-2.0 [facility] Comment on above: Performed By: #### L ACT ####[facility] [place] Azgawupqis[address] [place] [address]Dr. Bhavani Barragan POINT OF CARE GLUCOSEon Glucose [Mass/Vol] 188 mg/dL Critically high 74-106 [facility] Comment on above: Performed By: #### P OCGLUC ####[facility] [place] Ozqlsiiphe54[address] [place], [place] [address]Dr. Bhavani Barragan PROF 14(COMP METB)on 022 Albumin [Mass/Vol] 2.9 g/dL Critically low 3.4-5.0 [facility] Comment on above: Performed By: #### C MP ####[facility] [place] Bqdqkqsdcp2[address] [place], [place] [address]Dr. Bhavani Barragan Albumin/Globulin [Mass ratio] 0.7 {ratio} [facility] Comment on above: Performed By: #### C MP ####[facility] [place] Iqfduueftp99[address] [place] [address]Dr. Bhavani Barragan ALP [Catalytic activity/Vol] 372 U/L Critically high 46-116 [facility] Comment on above: Performed By: #### C MP ####[facility] [place] Hhvoelyakz74[address] [place] [address]Dr. Bhavani Barragan ALT [Catalytic activity/Vol] 402 U/L Critically high 14-59 [facility] Comment on above: Performed By: #### C MP ####[facility] [place] Llbienrdhb9767 [place] [address]Dr. Bhavani Barragan Anion gap [Moles/Vol] 10.6 mmol/L Normal [facility] Comment on above: Performed By: #### C MP ####[facility] [place] Scvnukptgz8073 [place] [address]Dr. Bhavani Barragan AST [Catalytic activity/Vol] 346 U/L Critically high 15-37 [facility] [place] Comment on above: Performed By: #### C MP ####[facility] [place] Okkjawuajt49[address] [place] [address]Dr. Bhavani Barragan Bilirubin [Mass/Vol] 2.8 mg/dL Critically high 0.2-1.0 [facility] Comment on above: Performed By: #### C MP ####[facility] [place] Ovtzpspxcy[address] [place], [place] [address]Dr. Bhavani Barragan Calcium [Mass/Vol] 7.9 mg/dL Critically low 8.5-10.1 Th e [facility] [place] Comment on above: Performed By: #### C MP ####[facility] [place] Yyjquxyuna[address] [place], [place] [address]Dr. Bhavani Barragan Chloride [Moles/Vol] 106 mmol/L Normal 98-107 [facility] [place] Comment on above: Performed By: #### C MP ####[facility] [place] Giwxjwxhzs2034[address] [place], [place] [address]Dr. Bhavani Barragan CO2 [Moles/Vol] 23.5 mmol/L Normal 21.0-32.0 [facility] Comment on above: Performed By: #### C MP ####[facility] [place] Qhdizbssoh[address] [place], [place] [address]Dr. Bhavani Barragan Creatinine [Mass/Vol] 1.57 mg/dL Critically high 0.55-1.02 [facility] Comment on above: Performed By: #### C MP ####[facility] [place] Udzdnlosqs25[address] [place] [address]Dr. Bhavani Barragan EGFR-AF [place] 38 mL/min/1.73m2 Critically low >=60 [facility] [place] Comment on above: Performed By: #### C MP ####[facility] [place] Aubexdmyzm333[address] [place], [place] [address]Dr. Bhavani Barragan EGFR-NON AF [place] 32 mL/min/1.73m2 Critically low >=60 [facility] [place] Comment on above: Performed By: #### C MP ####[facility] [place] Fkcapcvjwi6278 [place] [address]Dr. Bhavani Barragan Globulin (S) [Mass/Vol] 4.0 g/dL Normal [facility] Comment on above: Performed By: #### C MP ####[facility] [place] Skpzjlfmtw268[address] [place], [place] [address]Dr. Bhavani Barragan Glucose [Mass/Vol] 151 mg/dL Critically high 74-106 [facility] Comment on above: Performed By: #### C MP ####[facility] [place] Tmbzlmmifs2[address] [place], [place] [address]Dr. Bhavani Barragan Potassium [Moles/Vol] 4.1 mmol/L Normal 3.5-5.1 [facility] Comment on above: Performed By: #### C MP ####[facility] [place] Jyltizgles[address] [place], [place] [address]Dr. Bhavani Barragan Protein [Mass/Vol] 6.9 g/dL Normal 6.4-8.[address] [facility] Comment on above: Performed By: #### C MP ####[facility] [place] Rnnchxzxbt3[address] [place], [place] [address]Dr. Bhavani Barragan Sodium [Moles/Vol] 136 mmol/L Normal 136-145 [facility] Comment on above: Performed By: #### C MP ####[facility] [place] Ncaphwaxcn[address] [place], [place] [address]Dr. Bhavani Barragan Urea nitrogen [Mass/Vol] 23.0 mg/dL Critically high 7.0-18.0 [facility] Comment on above: Performed By: #### C MP ####[facility] [place] Xohcmxghgu3299[address] [place], [place] [address]Dr. Bhavani Barragan Urea nitrogen/Creatinine [Mass ratio] 14.6 mg/mg Normal [facility] [place] Comment on above: Performed By: #### C MP ####[facility] [place] Ykygzkvtqx23[address] [place], [place] [address]Dr. Bhavani Barragan URINE MICROSCOPIC ONLYon BACTERIA LARGE Abnormal NONE SEEN The [facility] [place] Comment on above: Performed By: #### U MICRO, ERUR ####[facility] [place] Wkqhkylajz[address] [place], [place] [address]Dr. Bhavani Barragan Bacteria identified Cx Nom (U) INDICATED Normal [facility] [place] Comment on above: Performed By: #### U MICRO, ERUR ####[facility] [place] Keldfbrlum[address] [place] [address]Dr. Bhavani Barragan CAST NONE SEEN Normal NONE SEEN [facility] [place] Comment on above: Performed By: #### U MICRO, ERUR ####[facility] [place] Dbwulcxjvq70[address] [place] [address]Dr. Bhavani Barragan Crystals LM Nom (Urine sed) NONE SEEN Normal NONE SEEN The [facility] [place] Comment on above: Performed By: #### U MICRO, ERUR ####[facility] [place] Lksmjlvtct[address] [place] [address]Dr. Bhavani Barragan Epithelial cells LM Ql (Urine sed) FEW Abnormal NONE SEEN /RARE The [facility] [place] Comment on above: Performed By: #### U MICRO, ERUR ####[facility] [place] [address]iquvrjkzn[address] [place] [address]Dr. Bhavani Barragan MUCOUS NONE SEEN Normal NONE SEEN The [facility] [place] Comment on above: Performed By: #### U MICRO, ERUR ####[facility] [place] Wrjdtnmevt69[address] [place] [address]Dr. Bhavani Barragan RBC 2-5 Abnormal 0-2 [facility] Comment on above: Performed By: #### U MICRO, ERUR ####[facility] [id number] [address]Dr. Bhavani Barragan WBC (U) [#/Vol] /uL Abnormal NONE SEEN [facility] Comment on above: Performed By: #### U MICRO, ERUR ####[facility] [id number] [address]Dr. Bhavani Barragan US SINGLE QUAD RT UPPERon US SINGLE QUAD RT UPPER Normal [facility] XR CHEST 1 Von 03-22-2022 XR CHEST 1 V Normal [facility] CBC AND ELECTRONIC DIFFon Basophils (Bld) [#/Vol] 0.23 10*3/uL High 0.00-0.15 [facility] Comment on above: Performed By: #### R ETIC, [id number] #### [facility] (DEFAULT) [address] [place] [address]12 Basophils/100 WBC (Bld) 0.9 % Normal [facility] Comment on above: Performed By: #### R ETIC, [id number] #### [facility] (DEFAULT) [address] [place] [address]18 DIFF STATUS Electronic Differential Normal [facility] Comment on above: Performed By: #### R ETIC, [id number] #### [facility] (DEFAULT) [address] [place] [address]93 Eosinophils (Bld) [#/Vol] 10*3/uL Normal 0.00-0.42 [facility] Comment on above: Performed By: #### R ETIC, [id number] #### [facility] (DEFAULT) [address] [place] [address]244 Eosinophils/100 WBC (Bld) 0.0 % Normal [facility] Comment on above: Performed By: #### R ETIC, [id number] #### [facility] (DEFAULT) [address] [place] [address]387 Hematocrit (Bld) [Volume fraction] 52.1 % High 34.9-44.3 [facility] Comment on above: Performed By: #### R ETIC, [id number] #### [facility] (DEFAULT) [address] [place] [address]111 Hemoglobin (Bld) [Mass/Vol] 16.8 g/dL High 11.4-15.2 [facility] Comment on above: Performed By: #### R ETIC, [id number] #### [facility] (DEFAULT) [address] [address] Immature Grans % 1.3 % Normal [facility] Comment on above: Performed By: #### R ETIC, [id number] #### [facility] (DEFAULT) [address] [place] [address]375 Immature Grans Absolute 0.34 K/uL High <=0.09 [facility] Comment on above: Performed By: #### R ETIC, [id number] #### [facility] (DEFAULT) [address] [place] [address]153 Lymphocytes (Bld) [#/Vol] 1.24 10*3/uL Normal 1.16-3.51 [facility] Comment on above: Performed By: #### R ETIC, [id number] #### [facility] (DEFAULT) [address] [place] [address] 99361 Lymphocytes/100 WBC (Bld) 4.9 % Normal [facility] Comment on above: Performed By: #### R ETIC, [id number] #### [facility] (DEFAULT) [address] [address] MCV (RBC) [Entitic vol] 97.4 fL Normal 79.6-97.7 [facility] Comment on above: Performed By: #### R ETIC, [id number] #### [facility] (DEFAULT) [address] [place] [address] 48932 Mean Cell Hgb 31.4 pg Normal 25.9-33.9 [facility] Comment on above: Performed By: #### R ETIC, [id number] #### [facility] (DEFAULT) [address] [address] Mean Cell Hgb Conc 32.2 g/dL Normal 31.4-35.9 [facility] Comment on above: Performed By: #### R ETIC, [id number] #### [facility] (DEFAULT) [address] [place] [address] 45554 Monocytes (Bld) [#/Vol] 0.47 10*3/uL Normal 0.22-0.87 [facility] Comment on above: Performed By: #### R ETIC, [id number] #### [facility] (DEFAULT) [address] [place] [address] 10511 Monocytes/100 WBC (Bld) 1.9 % Normal [facility] Comment on above: Performed By: #### R ETIC, [id number] #### [facility] (DEFAULT) [address] [address] Nucleated RBC 0.1 /100 WBC Normal <=0.2 [facility] Comment on above: Performed By: #### R ETIC, [id number] #### [facility] (DEFAULT) [address] [address] Platelet mean volume (Bld) [Entitic vol] 11.1 fL Normal 8.5-12.2 [facility] Comment on above: Performed By: #### R KELLYC, [id number] #### [facility] (DEFAULT) [address] [address] Platelets (Bld) [#/Vol] 174 10*3/uL Normal 150-393 [facility] Comment on above: Performed By: #### R ETIC, [id number] #### [facility] (DEFAULT) [address] [address] RBC (Bld) [#/Vol] 5.35 10*6/uL High 3.91-5.04 [facility] Comment on above: Performed By: #### R ETIC, [id number] #### [facility] (DEFAULT) [address] [address] RBC Distribution 16.3 % High 10.8-14.9 [facility] Comment on above: Performed By: #### R ETIC, [id number] #### [facility] (DEFAULT) [address] [address] Segs + Bands Auto 91.0 % Normal [facility] Comment on above: Performed By: #### R ETIC, [id number] #### [facility] (DEFAULT) [address] [address] Segs + Bands,Absolute Auto 23.08 K/uL High 1.64-7.28 [facility] Comment on above: Performed By: #### R ETIC, [id number] #### [facility] (DEFAULT) [address] [place] [address] 05733 WBC (Bld) [#/Vol] 25.37 10*3/uL High 3.99-11.19 [facility] Comment on above: Performed By: #### R KERLINE, [id number] #### [facility] (DEFAULT) [address] [place] [address]75 CMPN WITHOUT GLUCOSEon 11-02 Albumin [Mass/Vol] 4.3 g/dL Normal 3.5-5.0 [facility] Comment on above: Performed By: #### C MPNG #### [facility] (DEFAULT) [address] [place] [address] 51068 ALP [Catalytic activity/Vol] 80 U/L Normal 32-126 [facility] Comment on above: Performed By: #### C MPNG #### [facility] (DEFAULT) [address] [place] [address] 72246 ALT [Catalytic activity/Vol] 8 U/L Low 9-48 [facility] Comment on above: Performed By: #### C MPNG #### [facility] (DEFAULT) [address] [place] [address] 17288 Anion gap [Moles/Vol] 13 mmol/L Normal 7-17 [facility] Comment on above: Performed By: #### C MPNG #### [facility] (DEFAULT) [address] [place] [address] 03681 AST [Catalytic activity/Vol] 14 U/L Normal 14-40 [facility] Comment on above: Performed By: #### C MPNG #### [facility] (DEFAULT) [address] [address] Bilirubin [Mass/Vol] 0.5 mg/dL Normal <1.5 [facility] Comment on above: Performed By: #### C MPNG #### [facility] (DEFAULT) [address] [place] [address] 53676 Calcium [Mass/Vol] 9.1 mg/dL Normal 8.6-10.5 [facility] Comment on above: Performed By: #### C MPNG #### [facility] (DEFAULT) [address] [place] [address] 65056 Chloride [Moles/Vol] 108 mmol/L Normal 98-108 [facility] Comment on above: Performed By: #### C MPNG #### [facility] (DEFAULT) [address] [place] [address] 55876 CO2 [Moles/Vol] 21 mmol/L Low 22-30 [facility] Comment on above: Performed By: #### C MPNG #### [facility] (DEFAULT) [address] [place] [address] 78377 Creatinine [Mass/Vol] 1.36 mg/dL High 0.50-1.20 [facility] Comment on above: Performed By: #### C MPNG #### [facility] (DEFAULT) [address] [place] [address] 79298 EST GFR, 45 mL/min/1.73sqM Low >=60 [facility] Comment on above: Performed By: #### C MPNG #### [facility] (DEFAULT) [address] [place] [address] 77264 EST GFR,Non 37 mL/min/1.73sqM Low >=60 [facility] Comment on above: Performed By: #### C MPNG #### [facility] (DEFAULT) [address] [place] [address] 11527 Potassium [Moles/Vol] 5.0 mmol/L Normal 3.5-5.0 [facility] Comment on above: Performed By: #### C MPNG #### [facility] (DEFAULT) [address] [place] [address] 21651 Protein [Mass/Vol] 7.6 g/dL Normal 6.4-8.3 [facility] Comment on above: Performed By: #### C MPNG #### [facility] (DEFAULT) [address] [place] [address] 87854 Sodium [Moles/Vol] 137 mmol/L Normal 133-143 [facility] Comment on above: Performed By: #### C MPNG #### [facility] (DEFAULT) [address] [place] [address] 14675 Urea nitrogen [Mass/Vol] 42 mg/dL High 06-08 [facility] Comment on above: Performed By: #### C MPNG #### [facility] (DEFAULT) [address] [place] [address] 44427 Urea nitrogen/Creatinine [Mass ratio] 31 mg/mg Normal [facility] Comment on above: Performed By: #### C MPNG #### [facility] (DEFAULT) [address] [place] [address] 33789 FERRITINon 11-02-2021 Ferritin [Mass/Vol] 19.2 ng/mL Normal 10.0-291.0 [facility] Comment on above: Performed By: #### F ERIB #### [facility] (DEFAULT) [address] [place] [address] 76258 RETICULOCYTESon 11-02-2021 Retic Absolute 0.1177 M/uL High 0.0324-0.114 2 [facility] Comment on above: Performed By: #### R ETIC, [id number] #### [facility] (DEFAULT) [address] [place] [address] 50242 Retic Count 2.20 % Normal 0.74-2.54 [facility] Comment on above: Performed By: #### R ETIC, [id number] #### [facility] (DEFAULT) [address] [place] [address] 99289 CBC AND ELECTRONIC DIFFon Basophils (Bld) [#/Vol] 0.20 10*3/uL High 0.00-0.15 [facility] Comment on above: Performed By: #### L [id number] #### [facility] (DEFAULT) [address] [place] [address] 82603 Basophils/100 WBC (Bld) 0.9 % Normal [facility] Comment on above: Performed By: #### L [id number] #### [facility] (DEFAULT) [address] [place] [address] 27293 DIFF STATUS Electronic Differential Normal [facility] Comment on above: Performed By: #### L [id number] #### [facility] (DEFAULT) [address] [place] [address] 92664 Eosinophils (Bld) [#/Vol] 10*3/uL Normal 0.00-0.42 [facility] Comment on above: Performed By: #### L [id number] #### [facility] (DEFAULT) [address] [place] [address] 95489 Eosinophils/100 WBC (Bld) 0.1 % Normal [facility] Comment on above: Performed By: #### L [id number] #### [facility] (DEFAULT) [address] [place] [address] 94668 Hematocrit (Bld) [Volume fraction] 47.4 % High 34.9-44.3 [facility] Comment on above: Performed By: #### L [id number] #### [facility] (DEFAULT) [address] [place] [address] 88476 Hemoglobin (Bld) [Mass/Vol] 15.4 g/dL High 11.4-15.2 [facility] Comment on above: Performed By: #### L [id number] #### [facility] (DEFAULT) [address] [place] [address] 97712 Immature Grans % 3.0 % Normal [facility] Comment on above: Performed By: #### L [id number] #### [facility] (DEFAULT) [address] [place] [address] 17730 Immature Grans Absolute 0.67 K/uL High <=0.09 [facility] Comment on above: Performed By: #### L [id number] #### [facility] (DEFAULT) [address] [place] [address] 16580 Lymphocytes (Bld) [#/Vol] 1.12 10*3/uL Low 1.16-3.51 [facility] Comment on above: Performed By: #### L [id number] #### [facility] (DEFAULT) [address] [place] [address] 92543 Lymphocytes/100 WBC (Bld) 5.0 % Normal [facility] Comment on above: Performed By: #### L [id number] #### [facility] (DEFAULT) [address] [address] MCV (RBC) [Entitic vol] 101.5 fL High 79.6-97.7 [facility] Comment on above: Performed By: #### L [id number] #### [facility] (DEFAULT) [address] [address] Mean Cell Hgb 33.0 pg Normal 25.9-33.9 [facility] Comment on above: Performed By: #### L [id number] #### [facility] (DEFAULT) [address] [address] Mean Cell Hgb Conc 32.5 g/dL Normal 31.4-35.9 [facility] Comment on above: Performed By: #### L [id number] #### [facility] (DEFAULT) [address] [address] Monocytes (Bld) [#/Vol] 0.51 10*3/uL Normal 0.22-0.87 [facility] Comment on above: Performed By: #### L [id number] #### [facility] (DEFAULT) [address] [address] Monocytes/100 WBC (Bld) 2.3 % Normal [facility] Comment on above: Performed By: #### L [id number] #### [facility] (DEFAULT) [address] [address] Nucleated RBC 0.1 /100 WBC Normal <=0.2 [facility] Comment on above: Performed By: #### L [id number] #### [facility] (DEFAULT) [address] [address] Platelet mean volume (Bld) [Entitic vol] 10.4 fL Normal 8.5-12.2 [facility] Comment on above: Performed By: #### L [id number] #### [facility] (DEFAULT) [address] [address] Platelets (Bld) [#/Vol] 289 10*3/uL Normal 150-393 [facility] Comment on above: Performed By: #### L [id number] #### [facility] (DEFAULT) [address] [address] RBC (Bld) [#/Vol] 4.67 10*6/uL Normal 3.91-5.04 [facility] Comment on above: Performed By: #### L [id number] #### [facility] (DEFAULT) [address] [address] RBC Distribution 14.8 % Normal 10.8-14.9 [facility] Comment on above: Performed By: #### L [id number] #### [facility] (DEFAULT) [address] [address] Segs + Bands Auto 88.7 % Normal [facility] Comment on above: Performed By: #### L [id number] #### [facility] (DEFAULT) [address] [address] Segs + Bands,Absolute Auto 20.03 K/uL High 1.64-7.28 [facility] Comment on above: Performed By: #### L [id number] #### [facility] (DEFAULT) [address] [address] WBC (Bld) [#/Vol] 22.56 10*3/uL High 3.99-11.19 [facility] Comment on above: Performed By: #### L [id number] #### [facility] (DEFAULT) [address] [place] [address] IMMUNOPHENOTYPING,PERIPH BLO ODon 08-17-2021 BKR DX CODE Use Ordering Normal [facility] Comment on above: Order Comment: IMMUN OPHENOTYPING DIAGNOSIS PATIENT NAME: MARÍA ELENA TAFOYA : 1940 ACCN#: [id number] REVIEWED BY: LAURA Moreno [id number] SAMPLE TYPE: Peripheral Blood LABORATORY INTERPRETATION: There [...] % are B cells (CD19+) with a [place]:Lambda ratio of 2:2 , 73.5 % are T cells (CD3+) with a CD4:CD8 ratio of 2.2 and an absolute CD4+/CD3+ count of 549 ABS/mm3 and 23.7 % are NK cells (positive for CD56 and/or CD16 and negative for CD3). ==== MARKER DESCRIPTION LYM REG% ABS/mm3 NORMAL % NML ABS ==== ABSOLUTE LYMPHOCYTE COUNT [phone] ==== CD19+ B CELL 4.4 49 2.0-21.0 [...] determined The [facility] at [facility]. It has not been cleared or approved by the FDA. This laboratory is certified under the Clinical Laboratory Improvement Amendments (CLIA) as qualified to perform high complexity clinical laboratory testing. This test is used for clinical purposes. It should not be regarded as investigational or for research. The [facility] Flow Cytometry Laboratory lower limit of CLL MRD detection is 0.1% of the gated lymphocytes. Performed By: #### P BIPP #### [facility] (DEFAULT) [address] [place] [address] Flow Interpretation See Comment Normal [facility] Comment on above: Order Comment: IMMUN OPHENOTYPING DIAGNOSIS PATIENT NAME: MARÍA ELENA TAFOYA : 1940 ACCN#: [id number] REVIEWED BY: LAURA Moreno [id number] SAMPLE TYPE: Peripheral Blood LABORATORY INTERPRETATION: There [...] % are B cells (CD19+) with a [place]:Lambda ratio of 2:2 , 73.5 % are T cells (CD3+) with a CD4:CD8 ratio of 2.2 and an absolute CD4+/CD3+ count of 549 ABS/mm3 and 23.7 % are NK cells (positive for CD56 and/or CD16 and negative for CD3). ==== MARKER DESCRIPTION LYM REG% ABS/mm3 NORMAL % NML ABS ==== ABSOLUTE LYMPHOCYTE COUNT [phone] ==== CD19+ B CELL 4.4 49 2.0-21.0 [...] determined The [facility]. It has not been cleared or approved by the FDA. This laboratory is certified under the Clinical Laboratory Improvement Amendments (CLIA) as qualified to perform high complexity clinical laboratory testing. This test is used for clinical purposes. It should not be regarded as investigational or for research. The [facility] Flow [facility]ometry Laboratory lower limit of CLL MRD detection is 0.1% of the gated lymphocytes. Performed By: #### P BIPP #### [facility] (DEFAULT) [address] [place] [address] Flow Interpreted by: Efrem Charlton MD [facility] Comment on above: Order Comment: IMMUN OPHENOTYPING DIAGNOSIS PATIENT NAME: MARÍA ELENA TAFOYA : 1940 ACCN#: [id number] REVIEWED BY: LAURA Moreno [id number] SAMPLE TYPE: Peripheral Blood LABORATORY INTERPRETATION: There [...] % are B cells (CD19+) with a [place]:Lambda ratio of 2:2 , 73.5 % are T cells (CD3+) with a CD4:CD8 ratio of 2.2 and an absolute CD4+/CD3+ count of 549 ABS/mm3 and 23.7 % are NK cells (positive for CD56 and/or CD16 and negative for CD3). ==== MARKER DESCRIPTION LYM REG% ABS/mm3 NORMAL % NML ABS ==== ABSOLUTE LYMPHOCYTE COUNT [phone] ==== CD19+ B CELL 4.4 49 2.0-21.0 [...] determined The [facility]. It has not been cleared or approved by the FDA. This laboratory is certified under the Clinical Laboratory Improvement Amendments (CLIA) as qualified to perform high complexity clinical laboratory testing. This test is used for clinical purposes. It should not be regarded as investigational or for research. The [facility] Flow Cytometry Laboratory lower limit of CLL MRD detection is 0.1% of the gated lymphocytes. Performed By: #### P BIPP #### [facility] (DEFAULT) [address] [address] JAK2 [id number] MUTATION DETECTION , BLOODon 08-17-2021 Receiving Status Accessioned in Lab Normal [facility] Comment on above: Performed By: #### J AK2B #### [facility] (DEFAULT) [address] [place] [address] Performed By: #### B CRSCR #### [facility] (DEFAULT) [address] [place] [address] CBC with Differentialon 01-17 Basophils (Bld) [#/Vol] 0.20 thou/mcL Normal 0.00-0.20 [facility] Comment on above: Performed By: #### 5 7021-8 #### [facility] [address] [place] [address] 52455 Basophils/100 WBC (Bld) 0.9 % Normal 0.0-2.0 [facility] Comment on above: Performed By: #### 5 7021-8 #### [facility] [address] [place] [address] 6[address]86 Eosinophils (Bld) [#/Vol] 0.00 thou/mcL Normal 0.00-0.70 [facility] Comment on above: Performed By: #### 5 7021-8 #### [facility] [address] [place] [address] 97472 Eosinophils/100 WBC (Bld) 0.1 % Normal 0.0-7.0 [facility] Comment on above: Performed By: #### 5 7021-8 #### [facility] [address] [place] [address] 17802 Erythrocyte distribution width (RBC) [Entitic vol] 17.1 % High 11.0-14.8 [facility] Comment on above: Performed By: #### 5 7021-8 #### [address] [address] Hematocrit (Bld) [Volume fraction] 36.3 % Normal 35.0-45.0 [facility] Comment on above: Performed By: #### 5 7021-8 #### [address] [address] Hemoglobin (Bld) [Mass/Vol] 11.8 g/dL Low 12.0-16.0 [facility] Comment on above: Performed By: #### 5 7021-8 #### [address] [address] Lymphocytes (Bld) [#/Vol] 1.40 thou/mcL Normal 1.00-4.80 [facility] Comment on above: Performed By: #### 5 7021-8 #### [address] [address] Lymphocytes/100 WBC (Bld) 7.1 % Low 22.0-44.0 [facility] Comment on above: Performed By: #### 5 7021-8 #### [address] [address] MCH (RBC) [Entitic mass] 33.0 Picograms Normal 27.0-34.0 [facility] Comment on above: Performed By: #### 5 7021-8 #### [address] [address] MCHC (RBC) [Mass/Vol] 32.5 g/dL Normal 32.0-36.0 [facility] Comment on above: Performed By: #### 5 7021-8 #### [address] [address] MCV (RBC) [Entitic vol] 101.7 fL High 80.0-97.0 [facility] Comment on above: Performed By: #### 5 7021-8 #### [address] [address] Monocytes (Bld) [#/Vol] 0.50 thou/mcL Normal 0.00-0.90 [facility] Comment on above: Performed By: #### 5 7021-8 #### [facility] [address] [place] [address]774 Monocytes/100 WBC (Bld) 2.7 % Normal 0.0-12.0 [facility] Comment on above: Performed By: #### 5 7021-8 #### [facility] [address] [place] [address] 03636 Neutrophils (Bld) [#/Vol] 18.10 thou/mcL High 1.80-7.70 [facility] Comment on above: Performed By: #### 5 7021-8 #### [facility] [address] [place] [address]6077 Neutrophils/100 WBC (Bld) 89.2 % High 40.0-70.0 [facility] Comment on above: Performed By: #### 5 7021-8 #### [facility] [address] [place] [address] 36050 Platelet mean volume (Bld) [Entitic vol] 8.2 fL Normal 6.2-12.1 [facility] Comment on above: Performed By: #### 5 7021-8 #### [facility] [address] [place] [address] 30260 Platelets (Bld) [#/Vol] 355 thou/mcL Normal 142-424 [facility] Comment on above: Performed By: #### 5 7021-8 #### [facility] [address] [place] [address]752 RBC (Bld) [#/Vol] 3.57 million/mcL Low 3.80-5.10 [facility] Comment on above: Performed By: #### 5 7021-8 #### [facility] [address] [place] [address] 09536 WBC (Bld) [#/Vol] 20.3 thou/mcL High 4.6-10.2 [facility] Comment on above: Performed By: #### 5 7021-8 #### [facility] [address] [place] [address] Ammoniaon 09-27-2020 Ammonia (P) [Mass/Vol] 21 umol/L Normal 9-30 [facility] Comment on above: Order Comment: Items in this order include: Ammonia Testing Performed By: [facility] [address] [place] [address]. [place] [address] Dr. Donnie Jean, [place] Items in this order include: Ammonia Testing Performed By: [facility] [address] [place], [place] [address] Dr. Donnie Jean, [place] Performed By: #### C 709 #### [facility]. [address] [place] [address] [place] [address] B12/Folateon 09-27-2020 Cobalamin (Vitamin B12) [Mass/Vol] 683 pg/mL Normal 239-931 [facility] Comment on above: Order Comment: Items in this order include: Culture, Urine Testing Performed By: [facility] [address] [place] [address] [address] [address] Donnie Jean, [place] Result Comment: Plea se note: Over the counter high dose supplements of Biotin that are 20 to 300 times greater than the adequate daily intake of 30 mcg/day for adults may cause a bias of 10% or more to be observed in the measured Vitamin B-12 concentrations. Performed By: #### C 734 #### [facility] [address] [place] [address] [address] [place] [address] Folate 9.26 ng/mL Normal 2.80-20.00 [facility] Comment on above: Order Comment: Items in this order include: Culture, Urine Testing Performed By: [facility] [address] [place] [address] [address] Donnie Jean, [place] Result Comment: Plea se note: Over the counter high dose supplements of Biotin that are 20 to 300 times greater than the adequate daily intake of 30 mcg/day for adults may cause a bias of 10% or more to be observed in the measured Folate concentrations. Performed By: #### C 734 #### [facility] [address] [place] [address] CBC with differentialon 09-18 Erythrocyte distribution width (RBC) [Ratio] 15.4 % Normal 11.5-15.5 [facility] Comment on above: Order Comment: Items in this order include: Culture, Urine Testing Performed By: [facility] [address] [place] [address] Dr. Donnie Jean, Wool Brusher Performed By: #### C 734 #### [facility] [address] [place] [address] Hematocrit (Bld) [Volume fraction] 39.8 % Normal 37.0-47.0 [facility] Comment on above: Order Comment: Items in this order include: Culture, Urine Testing Performed By: [facility] [place] [address] Dr. Donnie Jean, Wool Brusher Performed By: #### C 734 #### [facility] [address] [place] [address] Hemoglobin (Bld) [Mass/Vol] 12.3 g/dL Normal 11.5-15.5 [facility] Comment on above: Order Comment: Items in this order include: Culture, Urine Testing Performed By: [facility] [place] [address] Dr. Donnie Jean, Wool Brusher Performed By: #### C 734 #### [facility] [address] [place] [address] MCH (RBC) [Entitic mass] 34.2 pg High 27.0-31.0 [facility] Comment on above: Order Comment: Items in this order include: Culture, Urine Testing Performed By: [facility] [address] [place] [address] Dr. Donnie Jean, Wool Brusher Performed By: #### C 734 #### [facility] [address] [place] [address] MCHC (RBC) [Mass/Vol] 30.9 g/dL Low 32.0-36.0 [facility] Comment on above: Order Comment: Items in this order include: Culture, Urine Testing Performed By: [facility] [address] [place] [address]. [place] [address] Dr. Donnie Jean, Wool Brusher Performed By: #### C 734 #### [facility] [address] [place] [address] [address] [place] [address] MCV (RBC) [Entitic vol] 110.6 fL High 78.0-100.0 [facility] Comment on above: Order Comment: Items in this order include: Culture, Urine Testing Performed By: [facility] [address] [place] [address]. [place] [address] Dr. Donnie Jean, Wool Brusher Performed By: #### C 734 #### [facility] [address] [place] [address] [address] [place] [address] Platelet mean volume (Bld) [Entitic vol] 10.2 fL Normal 8.9-12.6 [facility] Comment on above: Order Comment: Items in this order include: Culture, Urine Testing Performed By: [facility] [address] [place] [address]. [place] [address] Dr. Donnie Jean, Wool Brusher Performed By: #### C 734 #### [facility] [address] [place] [address] [address] [place] [address] Platelets (Bld) [#/Vol] 423 K CUMM High 130-400 [facility] Comment on above: Order Comment: Items in this order include: Culture, Urine Testing Performed By: [facility] [address] [place] [address]. [place] [address] Dr. Donnie Jean, Wool Brusher Performed By: #### C 734 #### [facility] [address] [place] [address] Rd [address] [place] [address] RBC (Bld) [#/Vol] 3.60 M CUMM Low 3.80-5.10 [facility] Comment on above: Order Comment: Items in this order include: Culture, Urine Testing Performed By: [facility] [address] [place] [address]. [place] [id number] Dr. Donnie Jean, Wool Brusher Performed By: #### C 734 #### [facility], [facility]. [address] [place] [address] [address] [place] [address] WBC (Bld) [#/Vol] 28.2 K CUMM Critically high 3.8-10.6 [facility] Comment on above: Order Comment: Items in this order include: Culture, Urine Testing Performed By: [facility] [address] [place] [address]. [place] [id number] Dr. Donnie Jean, Wool Brusher Performed By: #### C 734 #### [facility], [facility]. [address] [place] [address] [address] [place] [address] [facility] 09-27-2020 Albumin [Mass/Vol] 4.4 g/dL Normal 3.5-5.0 [facility] Comment on above: Order Comment: Items in this order include: Comprehensive Metabolic Panel, CBC with differential, TSH w/ reflex to FT4, B12/Folate, , , , Manual Differential if Indicated, Slide Scan, MicroscopeTesting Performed By: [facility] [address] [place] [address]. [place] [address] Dr. Donnie Jean, Wool Brusher Performed By: #### C 709 #### [facility], [facility]. [address] [place] [address] [address] [place] [address] Alk Phos 68 U/L Normal 23-159 [facility] Comment on above: Order Comment: Items in this order include: Comprehensive Metabolic Panel, CBC with differential, TSH w/ reflex to FT4, B12/Folate, , , , Manual Differential if Indicated, Slide Scan, MicroscopeTesting Performed By: [facility] [address] [place] [address]. [place] [address] Dr. Donnie Jean, Wool Brusher Performed By: #### C 709 #### [facility], [facility]. [address] [place] [address] [address] [place] [address] ALT [Catalytic activity/Vol] 15 U/L Normal 0-38 [facility] Comment on above: Order Comment: Items in this order include: Comprehensive Metabolic Panel, CBC with differential, TSH w/ reflex to FT4, B12/Folate, , , , Manual Differential if Indicated, Slide Scan, MicroscopeTesting Performed By: [facility] [address] [place] [address]. [place] [address] Dr. Donnie Jean, Wool Brusher Performed By: #### C 709 #### [facility], [facility]. [address] [place] [address] [address] [place] [address] AST [Catalytic activity/Vol] 21 U/L Normal 11-43 [facility] Comment on above: Order Comment: Items in this order include: Comprehensive Metabolic Panel, CBC with differential, TSH w/ reflex to FT4, B12/Folate, , , , Manual Differential if Indicated, Slide Scan, MicroscopeTesting Performed By: [facility] [address] [place] [address] [address] [address] Donnie Jean, Wool Brusher Performed By: #### C 709 #### [facility], [facility]. [address] [place] [address] [address] [place] [address] Bilirubin [Mass/Vol] 0.5 mg/dL Normal 0.2-1.3 [facility] Comment on above: Order Comment: Items in this order include: Comprehensive Metabolic Panel, CBC with differential, TSH w/ reflex to FT4, B12/Folate, , , , Manual Differential if Indicated, Slide Scan, MicroscopeTesting Performed By: [facility] [address] [place] [address] [address] [address] Donnie Jean, Wool Brusher Performed By: #### C 709 #### [facility], [facility]. [address] [place] [address] [address] [place] [address] Calcium [Mass/Vol] 9.7 mg/dL Normal 8.5-10.5 [facility] Comment on above: Order Comment: Items in this order include: Comprehensive Metabolic Panel, CBC with differential, TSH w/ reflex to FT4, B12/Folate, , , , Manual Differential if Indicated, Slide Scan, MicroscopeTesting Performed By: [facility] [address] [place] [address] Dr. Donnie Jean, Wool Brusher Performed By: #### C 709 #### [facility] [address] [place] [address] [address] [place] [address] Chloride [Moles/Vol] 111 mmol/L High 98-107 [facility] Comment on above: Order Comment: Items in this order include: Comprehensive Metabolic Panel, CBC with differential, TSH w/ reflex to FT4, B12/Folate, , , , Manual Differential if Indicated, Slide Scan, MicroscopeTesting Performed By: [facility] [address] [place] [address] Dr. Donnie Jean, Wool Brusher Performed By: #### C 709 #### [facility], [facility]. [address] [place] [address] [address] [place] [address] CO2 [Moles/Vol] 16.0 mmol/L Low 21.0-32.0 [facility] Comment on above: Order Comment: Items in this order include: Comprehensive Metabolic Panel, CBC with differential, TSH w/ reflex to FT4, B12/Folate, , , , Manual Differential if Indicated, Slide Scan, MicroscopeTesting Performed By: [facility] [address] [place] [address] Dr. Donnie Jean, Wool Brusher Performed By: #### C 709 #### [facility], [facility]. [address] [place] [address] [address] [place] [address] Creatinine [Mass/Vol] 1.6 mg/dL High 0.1-1.2 [facility] Comment on above: Order Comment: Items in this order include: Comprehensive Metabolic Panel, CBC with differential, TSH w/ reflex to FT4, B12/Folate, , , , Manual Differential if Indicated, Slide Scan, MicroscopeTesting Performed By: [facility] [address] [place] [address] [address] [address] Donnie Jean, Wool Brusher Performed By: #### C 709 #### [facility], [facility]. [address] [facility] [place] [address] GFR/1.73 sq M.predicted MDRD (S/P/Bld) [Vol rate/Area] 31 mL/min per 1.73 Low >60 [facility] Comment on above: Order Comment: Items in this order include: Comprehensive Metabolic Panel, CBC with differential, TSH w/ reflex to FT4, B12/Folate, , , , Manual Differential if Indicated, Slide Scan, MicroscopeTesting Performed By: [facility] [address] [place] [address] Dr. Donnie Jean, Wool Brusher Result Comment: The GFR estimate is not adjusted for race. If the patient's race is -[place], the GFR estimate must be multiplied by a factor of 1.21. Performed By: #### C 709 #### [facility], [facility]. [address] [place] [address] [address] - [place] [id number] Glucose [Mass/Vol] 112 mg/dL High 74-100 [facility] Comment on above: Order Comment: Items in this order include: Comprehensive Metabolic Panel, CBC with differential, TSH w/ reflex to FT4, B12/Folate, , , , Manual Differential if Indicated, Slide Scan, MicroscopeTesting Performed By: [facility] [address] [place] [address] Dr. Donnie Jean, Wool Brusher Performed By: #### C 709 #### [facility], [facility]. [address] [place] [address] [place] [address] Potassium [Moles/Vol] 5.4 mmol/L High 3.5-5.3 [facility] Comment on above: Order Comment: Items in this order include: Comprehensive Metabolic Panel, CBC with differential, TSH w/ reflex to FT4, B12/Folate, , , , Manual Differential if Indicated, Slide Scan, MicroscopeTesting Performed By: [facility] [address] [place] [address] [address] [address] Donnie Jean, Wool Brusher Performed By: #### C 709 #### [facility] [address] [place] [address] [address] [place] [address] Protein [Mass/Vol] 7.4 g/dL Normal 6.3-8.4 [facility] Comment on above: Order Comment: Items in this order include: Comprehensive Metabolic Panel, CBC with differential, TSH w/ reflex to FT4, B12/Folate, , , , Manual Differential if Indicated, Slide Scan, MicroscopeTesting Performed By: [facility] [address] [place] [address]. [place] [address] Dr. Donnie Jean, Wool Brusher Performed By: #### C 709 #### [facility], [facility]. [address] [place] [address] [place] [address] Sodium [Moles/Vol] 140 mmol/L Normal 135-145 [facility] Comment on above: Order Comment: Items in this order include: Comprehensive Metabolic Panel, CBC with differential, TSH w/ reflex to FT4, B12/Folate, , , , Manual Differential if Indicated, Slide Scan, MicroscopeTesting Performed By: [facility] [address] [place] [address] [address] [address] Donnie Jean, Wool Brusher Performed By: #### Jany 709 #### [facility], [facility]. [address] [place] [address] [place] [address] Urea nitrogen [Mass/Vol] 40 mg/dL High 6-22 [facility] Comment on above: Order Comment: Items in this order include: Comprehensive Metabolic Panel, CBC with differential, TSH w/ reflex to FT4, B12/Folate, , , , Manual Differential if Indicated, Slide Scan, MicroscopeTesting Performed By: [facility] [address] [place] [address] [address] [address] Donnie Jean, Wool Brusher Performed By: #### C 709 #### [facility], [facility]. [address] [place] [address] [address] [place] [address] Culture, Urineon 09-27-2020 RPT Microbiology results Normal [facility] Comment on above: Order Comment: Items in this order include: Culture, Urine Testing Performed By: [facility] [address] [place] [address], [place] [address] Dr. Donnie Jean, Wool Brusher Result Comment: Kaylee l Result: No growth at 24 hours. Performed By: #### C 734 #### [facility] [address] [place] [address] [address] [place] [address] Manual Differential if Indic atedon 09-27-2020 Anisocytosis Ql (Bld) SLIGHT Normal [facility] Comment on above: Order Comment: Items in this order include: Culture, Urine Testing Performed By: [facility] [address] [place] [address]. [place] [address] Dr. Donnie Jean, Wool Brusher Performed By: #### C 734 #### [facility] [address] [place] [address] [place] [address] Luna Cells SLIGHT Normal [facility] Comment on above: Order Comment: Items in this order include: Culture, Urine Testing Performed By: [facility] [address] [place] [address]. [place] [address] Dr. Donnie Jean, Wool Brusher Performed By: #### C 734 #### [facility] [address] [place] [address] [place] [address] Lymphocytes 2 % Low 20-51 [facility] Comment on above: Order Comment: Items in this order include: Culture, Urine Testing Performed By: [facility] [address] [place] [address]. [place] [address] Dr. Donnie Jean, Wool Brusher Performed By: #### C 734 #### [facility] [address] [place] [address] [address] [place] [address] Macrocytes Ql (Bld) SLIGHT Normal [facility] Comment on above: Order Comment: Items in this order include: Culture, Urine Testing Performed By: [facility] [address] [place] [address]. [place] [address] Dr. Donnie Jean, Wool Brusher Performed By: #### C 734 #### [facility] [address] [place] [address] [address] [place] [address] Metamyelocytes 1 % Normal <2 [facility] Comment on above: Order Comment: Items in this order include: Culture, Urine Testing Performed By: [facility] [address] [place] [address] Dr. Donnie Jean, Wool Brusher Performed By: #### C 734 #### [facility] [address] [place] [address] Monocytes 2 % Normal 2-9 [facility] Comment on above: Order Comment: Items in this order include: Culture, Urine Testing Performed By: [facility] [address] [place] [address] Dr. Donnie Jean, Wool Brusher Performed By: #### C 734 #### [facility] [address] [place] [address] Neutrophils 95 % High 42-75 [facility] Comment on above: Order Comment: Items in this order include: Culture, Urine Testing Performed By: [facility] [address] [place] [address] Dr. Donnie Jean, Wool Brusher Performed By: #### C 734 #### [facility] [address] [place] [address] Ovalocytes SLIGHT Normal [facility] Comment on above: Order Comment: Items in this order include: Culture, Urine Testing Performed By: [facility] [address] [place] [address] Dr. Donnie Jean, Wool Brusher Performed By: #### C 734 #### [facility] [address] [place] [address] Poikilocytosis MODERATE Normal [facility] Comment on above: Order Comment: Items in this order include: Culture, Urine Testing Performed By: [facility] [address] [place] [address] Dr. Donnie Jean, Wool Brusher Performed By: #### C 734 #### [facility] [address] [place] [address] Polychromasia SLIGHT Normal [facility] Comment on above: Order Comment: Items in this order include: Culture, Urine Testing Performed By: [facility] [address] [place] [address]. [place] [address] Dr. Donnie Jean, Wool Brusher Performed By: #### C 734 #### [facility] [address] [place] [address] [address] [place] [address] Target Cells SLIGHT Normal [facility] Comment on above: Order Comment: Items in this order include: Culture, Urine Testing Performed By: [facility] [address] [place] [address]. [place] [address] Dr. Donnie Jean, Wool Brusher Performed By: #### C 734 #### [facility] [address] [place] [address] [address] [place] [address] Slide Scan, Microscopeon Platelets (Bld) [#/Vol] RESULTS MAY BE INACCURATE DUE TO PLATELET CLUMPING; SUGGEST REDRAW PLT COUNT IN BLUE-TOP (CITRATED TUBE). ALL OTHER CBC PARAMETERS ARE UNAFFECTED BY THIS IN VITRO PHENOMENON. Normal [facility] Comment on above: Order Comment: Items in this order include: Culture, Urine Testing Performed By: [facility] [address] [place] [address]. [place] [address] Dr. Donnie Jean, Wool Brusher Performed By: #### C 734 #### [facility] [address] [place] [address] [address] [place] [address] TSH w/ reflex to FT4on 09-27 TSH Qn 4.30 MIU/mL Normal 0.50-6.00 [facility] Comment on above: Order Comment: Items in this order include: Culture, Urine Testing Performed By: [facility] [address] [place] [address]. [place] [address] Dr. Donnie Jean, Wool Brusher Performed By: #### C 734 #### [facility] [address] [place] [address] [place] [address] CBC with differentialon 08-0 4-2020 Erythrocyte distribution width (RBC) [Ratio] 15.4 % Normal 11.5-15.5 [facility] Comment on above: Order Comment: Items in this order include: Comprehensive Metabolic Panel, Lipid Panel, Uric Acid , Vit D 25 [place] (Total), CBC with differential, HgbA1C, , , , Slide Scan if Indicated, Manual Differential if IndicatedTesting Performed By: [facility] [address] [place] [address]. [place] [address] Dr. Donnie Jean, Wool Brusher Performed By: #### C 709 #### [facility], [facility]. [address] [place] [address] [place] [address] Hematocrit (Bld) [Volume fraction] 37.9 % Normal 37.0-47.0 [facility] Comment on above: Order Comment: Items in this order include: Comprehensive Metabolic Panel, Lipid Panel, Uric Acid , Vit D 25 [place] (Total), CBC with differential, HgbA1C, , , , Slide Scan if Indicated, Manual Differential if IndicatedTesting Performed By: [facility] [address] [place] [address] [address] [address] Donnie Jean, Wool Brusher Performed By: #### C 709 #### [facility], [facility]. [address] [place] [address] [place] [address] Hemoglobin (Bld) [Mass/Vol] 12.1 g/dL Normal 11.5-15.5 [facility] Comment on above: Order Comment: Items in this order include: Comprehensive Metabolic Panel, Lipid Panel, Uric Acid , Vit D 25 [place] (Total), CBC with differential, HgbA1C, , , , Slide Scan if Indicated, Manual Differential if IndicatedTesting Performed By: [facility] [address] [place] [address] [address] [address] Donnie Jean, Wool Brusher Performed By: #### C 709 #### [facility], [facility]. [address] [place] [address] [place] [address] MCH (RBC) [Entitic mass] 35.7 pg High 27.0-31.0 [facility] Comment on above: Order Comment: Items in this order include: Comprehensive Metabolic Panel, Lipid Panel, Uric Acid , Vit D 25 [place] (Total), CBC with differential, HgbA1C, , , , Slide Scan if Indicated, Manual Differential if IndicatedTesting Performed By: [facility] [address] [place] [address] Dr. Donnie Jean, Wool Brusher Performed By: #### C 709 #### [facility], [facility]. [address] [place] [address] [place] [address] MCHC (RBC) [Mass/Vol] 31.9 g/dL Low 32.0-36.0 [facility] Comment on above: Order Comment: Items in this order include: Comprehensive Metabolic Panel, Lipid Panel, Uric Acid , Vit D 25 [place] (Total), CBC with differential, HgbA1C, , , , Slide Scan if Indicated, Manual Differential if IndicatedTesting Performed By: [facility] [address] [place] [address] Dr. Donnie Jean, Wool Brusher Performed By: #### C 709 #### [facility], [facility]. [address] [place] [address] [place] [address] MCV (RBC) [Entitic vol] 111.8 fL High 78.0-100.0 [facility] Comment on above: Order Comment: Items in this order include: Comprehensive Metabolic Panel, Lipid Panel, Uric Acid , Vit D 25 [place] (Total), CBC with differential, HgbA1C, , , , Slide Scan if Indicated, Manual Differential if IndicatedTesting Performed By: [facility] [address] [place] [address] [address] [address] Donnie Jean, Wool Brusher Performed By: #### C 709 #### [facility], [facility]. [address] [place] [address] [place] [address] Platelet mean volume (Bld) [Entitic vol] 10.5 fL Normal 8.9-12.6 [facility] Comment on above: Order Comment: Items in this order include: Comprehensive Metabolic Panel, Lipid Panel, Uric Acid , Vit D 25 [place] (Total), CBC with differential, HgbA1C, , , , Slide Scan if Indicated, Manual Differential if IndicatedTesting Performed By: [facility] [address] [place] [address]. [place] [address] Dr. Donnie Jean, Wool Brusher Performed By: #### C 709 #### [facility], [facility]. [address] [place] [address] [address] [place] [address] Platelets (Bld) [#/Vol] 356 K CUMM Normal 130-400 [facility] Comment on above: Order Comment: Items in this order include: Comprehensive Metabolic Panel, Lipid Panel, Uric Acid , Vit D 25 [place] (Total), CBC with differential, HgbA1C, , , , Slide Scan if Indicated, Manual Differential if IndicatedTesting Performed By: [facility] [address] [place] [address]. [place] [address] Dr. Donnie Jean, Wool Brusher Performed By: #### C 709 #### [facility], [facility]. [address] [place] [address] [address] [place] [address] RBC (Bld) [#/Vol] 3.39 M CUMM Low 3.80-5.10 [facility] Comment on above: Order Comment: Items in this order include: Comprehensive Metabolic Panel, Lipid Panel, Uric Acid , Vit D 25 [place] (Total), CBC with differential, HgbA1C, , , , Slide Scan if Indicated, Manual Differential if IndicatedTesting Performed By: [facility] [address] [place] [address]. [place] [address] Dr. Donnie Jean, Wool Brusher Performed By: #### C 709 #### [facility], [facility]. [address] [place] [address] [address] [place] [address] WBC (Bld) [#/Vol] 18.3 K CUMM High 3.8-10.6 [facility] Comment on above: Order Comment: Items in this order include: Comprehensive Metabolic Panel, Lipid Panel, Uric Acid , Vit D 25 [place] (Total), CBC with differential, HgbA1C, , , , Slide Scan if Indicated, Manual Differential if IndicatedTesting Performed By: [facility] [address] [place] [address]. [place] [address] Dr. Donnie Jean, Wool Brusher Performed By: #### C 709 #### [facility], [facility]. [address] [place] [address] [place] [address] Comprehensive Metabolic Pane donnie 06-21-2020 Albumin [Mass/Vol] 4.4 g/dL Normal 3.5-5.0 [facility] Comment on above: Order Comment: Items in this order include: Comprehensive Metabolic Panel, Lipid Panel, Uric Acid , Vit D 25 [place] (Total), CBC with differential, HgbA1C, , , , Slide Scan if Indicated, Manual Differential if IndicatedTesting Performed By: [facility] [address] [place] [address]. [place] [id number] Dr. Donnie Jean, Lab DirectorItems in this order include: Comprehensive Metabolic Panel, Lipid Panel, Uric Acid , Vit D 25 [place] (Total), CBC with differential, HgbA1C, , , , Manual Differential if Indicated Performed By: #### C 709 #### [facility] [address] [place] [address] [place] [address] Alk Phos 66 U/L Normal 23-159 [facility] Comment on above: Order Comment: Items in this order include: Comprehensive Metabolic Panel, Lipid Panel, Uric Acid , Vit D 25 [place] (Total), CBC with differential, HgbA1C, , , , Slide Scan if Indicated, Manual Differential if IndicatedTesting Performed By: [facility] [address] [place] [address]. [place] [address] Dr. Donnie Jean, Lab DirectorItems in this order include: Comprehensive Metabolic Panel, Lipid Panel, Uric Acid , Vit D 25 [place] (Total), CBC with differential, HgbA1C, , , , Manual Differential if Indicated Performed By: #### C 709 #### [facility] [address] [place] [address] [address] [place] [address] ALT [Catalytic activity/Vol] 9 U/L Normal 0-38 [facility] Comment on above: Order Comment: Items in this order include: Comprehensive Metabolic Panel, Lipid Panel, Uric Acid , Vit D 25 [place] (Total), CBC with differential, HgbA1C, , , , Slide Scan if Indicated, Manual Differential if IndicatedTesting Performed By: [facility] [address] [place] [address]. [place] [address] Dr. Donnie Jean, Lab DirectorItems in this order include: Comprehensive Metabolic Panel, Lipid Panel, Uric Acid , Vit D 25 [place] (Total), CBC with differential, HgbA1C, , , , Manual Differential if Indicated Performed By: #### C 709 #### [facility] [address] [place] [address] [place] [address] AST [Catalytic activity/Vol] 17 U/L Normal 11-43 [facility] Comment on above: Order Comment: Items in this order include: Comprehensive Metabolic Panel, Lipid Panel, Uric Acid , Vit D 25 [place] (Total), CBC with differential, HgbA1C, , , , Slide Scan if Indicated, Manual Differential if IndicatedTesting Performed By: [facility] [address] [place] [address]. [place] [address] Dr. Donnie Jean, Lab DirectorItems in this order include: Comprehensive Metabolic Panel, Lipid Panel, Uric Acid , Vit D 25 [place] (Total), CBC with differential, HgbA1C, , , , Manual Differential if Indicated Performed By: #### C 709 #### [facility] [address] [place] [address] [place] [address] Bilirubin [Mass/Vol] 0.3 mg/dL Normal 0.2-1.3 [facility] Comment on above: Order Comment: Items in this order include: Comprehensive Metabolic Panel, Lipid Panel, Uric Acid , Vit D 25 [place] (Total), CBC with differential, HgbA1C, , , , Slide Scan if Indicated, Manual Differential if IndicatedTesting Performed By: [facility] [address] [place] [address]. [place] [address] Dr. Donnie Jean, Lab DirectorItems in this order include: Comprehensive Metabolic Panel, Lipid Panel, Uric Acid , Vit D 25 [place] (Total), CBC with differential, HgbA1C, , , , Manual Differential if Indicated Performed By: #### C 709 #### [facility] [address] [place] [address] [address] [place] [address] Calcium [Mass/Vol] 10.1 mg/dL Normal 8.5-10.5 [facility] Comment on above: Order Comment: Items in this order include: Comprehensive Metabolic Panel, Lipid Panel, Uric Acid , Vit D 25 [place] (Total), CBC with differential, HgbA1C, , , , Slide Scan if Indicated, Manual Differential if IndicatedTesting Performed By: [facility] [address] [place] [address]. [place] [address] Dr. Donnie Jean, Lab DirectorItems in this order include: Comprehensive Metabolic Panel, Lipid Panel, Uric Acid , Vit D 25 [place] (Total), CBC with differential, HgbA1C, , , , Manual Differential if Indicated Performed By: #### C 709 #### [facility] [address] [place] [address] [place] [address] Chloride [Moles/Vol] 106 mmol/L Normal 98-107 [facility] Comment on above: Order Comment: Items in this order include: Comprehensive Metabolic Panel, Lipid Panel, Uric Acid , Vit D 25 [place] (Total), CBC with differential, HgbA1C, , , , Slide Scan if Indicated, Manual Differential if IndicatedTesting Performed By: [facility] [address] [place] [address] [address] [address] Donnie Jean, Lab DirectorItems in this order include: Comprehensive Metabolic Panel, Lipid Panel, Uric Acid , Vit D 25 [place] (Total), CBC with differential, HgbA1C, , , , Manual Differential if Indicated Performed By: #### C 709 #### [facility] [address] [place] [address] [place] [address] CO2 [Moles/Vol] 17.0 mmol/L Low 21.0-32.0 [facility] Comment on above: Order Comment: Items in this order include: Comprehensive Metabolic Panel, Lipid Panel, Uric Acid , Vit D 25 [place] (Total), CBC with differential, HgbA1C, , , , Slide Scan if Indicated, Manual Differential if IndicatedTesting Performed By: [facility] [address] [place] [address] [address] [address] Donnie Jean, Lab DirectorItems in this order include: Comprehensive Metabolic Panel, Lipid Panel, Uric Acid , Vit D 25 [place] (Total), CBC with differential, HgbA1C, , , , Manual Differential if Indicated Performed By: #### C 709 #### [facility], [facility]. [address] [place] [address] [place] [address] Creatinine [Mass/Vol] 1.5 mg/dL High 0.1-1.2 [facility] Comment on above: Order Comment: Items in this order include: Comprehensive Metabolic Panel, Lipid Panel, Uric Acid , Vit D 25 [place] (Total), CBC with differential, HgbA1C, , , , Slide Scan if Indicated, Manual Differential if IndicatedTesting Performed By: [facility] [address] [place] [address] [address] [address] Donnie Jean, Lab DirectorItems in this order include: Comprehensive Metabolic Panel, Lipid Panel, Uric Acid , Vit D 25 [place] (Total), CBC with differential, HgbA1C, , , , Manual Differential if Indicated Performed By: #### C 709 #### [address] [place] [address] GFR/1.73 sq M.predicted MDRD (S/P/Bld) [Vol rate/Area] 33 mL/min per 1.73 Low >60 [facility] Comment on above: Order Comment: Items in this order include: Comprehensive Metabolic Panel, Lipid Panel, Uric Acid , Vit D 25 [place] (Total), CBC with differential, HgbA1C, , , , Slide Scan if Indicated, Manual Differential if IndicatedTesting Performed By: [facility] [address] [place] [address] [address] [address] Donnie Jean, Lab DirectorItems in this order include: Comprehensive Metabolic Panel, Lipid Panel, Uric Acid , Vit D 25 [place] (Total), CBC with differential, HgbA1C, , , , Manual Differential if Indicated Result Comment: The GFR estimate is not adjusted for race. If the patient's race is -[place], the GFR estimate must be multiplied by a factor of 1.21. Performed By: #### C 709 #### [facility], [facility]. [address] [place] [address] [address] [place] [address] Glucose [Mass/Vol] 108 mg/dL High 74-100 [facility] Comment on above: Order Comment: Items in this order include: Comprehensive Metabolic Panel, Lipid Panel, Uric Acid , Vit D 25 [place] (Total), CBC with differential, HgbA1C, , , , Slide Scan if Indicated, Manual Differential if IndicatedTesting Performed By: [facility] [address] [place] [address] [address] [address] Donnie Jean, Lab DirectorItems in this order include: Comprehensive Metabolic Panel, Lipid Panel, Uric Acid , Vit D 25 [place] (Total), CBC with differential, HgbA1C, , , , Manual Differential if Indicated Performed By: #### C 709 #### [facility], [facility]. [address] [place] [address] [place] [address] Potassium [Moles/Vol] 4.7 mmol/L Normal 3.5-5.3 [facility] Comment on above: Order Comment: Items in this order include: Comprehensive Metabolic Panel, Lipid Panel, Uric Acid , Vit D 25 [place] (Total), CBC with differential, HgbA1C, , , , Slide Scan if Indicated, Manual Differential if IndicatedTesting Performed By: [facility] [address] [place] [address] [address] [address] Donnie Jean, Lab DirectorItems in this order include: Comprehensive Metabolic Panel, Lipid Panel, Uric Acid , Vit D 25 [place] (Total), CBC with differential, HgbA1C, , , , Manual Differential if Indicated Performed By: #### C 709 #### [facility], [facility]. [address] [place] [address] [address] [place] [address] Protein [Mass/Vol] 7.4 g/dL Normal 6.3-8.4 [facility] Comment on above: Order Comment: Items in this order include: Comprehensive Metabolic Panel, Lipid Panel, Uric Acid , Vit D 25 [place] (Total), CBC with differential, HgbA1C, , , , Slide Scan if Indicated, Manual Differential if IndicatedTesting Performed By: [facility] [address] [place] [address] [address] [address] Donnie Jean, Lab DirectorItems in this order include: Comprehensive Metabolic Panel, Lipid Panel, Uric Acid , Vit D 25 [place] (Total), CBC with differential, HgbA1C, , , , Manual Differential if Indicated Performed By: #### C 709 #### [facility], [facility]. [address] [place] [address] [address] [place] [address] Sodium [Moles/Vol] 139 mmol/L Normal 135-145 [facility] Comment on above: Order Comment: Items in this order include: Comprehensive Metabolic Panel, Lipid Panel, Uric Acid , Vit D 25 [place] (Total), CBC with differential, HgbA1C, , , , Slide Scan if Indicated, Manual Differential if IndicatedTesting Performed By: [facility] [address] [place] [address]. [place] [address] Dr. Donnie Jean, Lab DirectorItems in this order include: Comprehensive Metabolic Panel, Lipid Panel, Uric Acid , Vit D 25 [place] (Total), CBC with differential, HgbA1C, , , , Manual Differential if Indicated Performed By: #### C 709 #### [facility], [facility]. [address] [place] [address] [place] [address] Urea nitrogen [Mass/Vol] 36 mg/dL High 6-22 [facility] Comment on above: Order Comment: Items in this order include: Comprehensive Metabolic Panel, Lipid Panel, Uric Acid , Vit D 25 [place] (Total), CBC with differential, HgbA1C, , , , Slide Scan if Indicated, Manual Differential if IndicatedTesting Performed By: [facility] [address] [place] [address]. [place] [address] Dr. Donnie Jean, Lab DirectorItems in this order include: Comprehensive Metabolic Panel, Lipid Panel, Uric Acid , Vit D 25 [place] (Total), CBC with differential, HgbA1C, , , , Manual Differential if Indicated Performed By: #### C 709 #### [facility], [facility]. [address] [place] [address] [address] [place] [address] [id number] 06-21-2020 HbA1c (Bld) [Mass fraction] 6.3 % High <5.7 [facility] Comment on above: Order Comment: Items in this order include: Comprehensive Metabolic Panel, Lipid Panel, Uric Acid , Vit D 25 [place] (Total), CBC with differential, HgbA1C, , , , Slide Scan if Indicated, Manual Differential if IndicatedTesting Performed By: [facility] [address] [place] [address]. [place] [address] Dr. Donnie Jean, Lab DirectorItems in this order include: Comprehensive Metabolic Panel, Lipid Panel, Uric Acid , Vit D 25 [place] (Total), CBC with differential, HgbA1C, , , , Manual Differential if Indicated Result Comment: Refe rence Interval: Normal: below 5.7%. Prediabetes: 5.7% to 6.4%. Diabetes: 6.5% or above. Performed By: #### C 709 #### [facility] [address] [place] [address] [place] [address] Lipid Panelon 06-21-2020 Cholesterol [Mass/Vol] 124 mg/dL Normal <200 [facility] Comment on above: Performed By: #### C 709 #### [facility] [address] [place] [address] [place] [address] Cholesterol in HDL [Mass/Vol] 34 mg/dL Low >50 [facility] Comment on above: Performed By: #### C 709 #### [facility] [address] [place] [address] [address] [place] [address] Cholesterol in LDL [Mass/Vol] 49 mg/dL Normal <130 [facility] Comment on above: Performed By: #### C 709 #### [facility] [address] [place] [address] [address] [place] [address] Cholesterol.total/C holesterol in HDL [Mass ratio] 3.6 {ratio} Normal <4.0 [facility] Comment on above: Performed By: #### C 709 #### [facility] [address] [place] [address] [address] [place] [address] Non-HDL Chol 90 Normal LDL Goal + 30 [facility] Comment on above: Result Comment: LDL and Non-HDL goal dependent upon individual risk Performed By: #### C 709 #### [facility] [address] [place] [address] [address] [place] [address] Triglyceride [Mass/Vol] 206 mg/dL High <150 [facility] Comment on above: Performed By: #### C 709 #### [facility] [address] [place] [address] [address] [place] [address] VLDL-Calc 41 mg/dl High <30 [facility] Comment on above: Performed By: #### C 709 #### [facility] [address] [place] [address] [address] [place] [address] Manual Differential if Indic atedon 06-21-2020 Anisocytosis Ql (Bld) MODERATE Normal [facility] Comment on above: Order Comment: Items in this order include: Comprehensive Metabolic Panel, Lipid Panel, Uric Acid , Vit D 25 [place] (Total), CBC with differential, HgbA1C, , , , Slide Scan if Indicated, Manual Differential if IndicatedTesting Performed By: [facility] [address] [place] [address] [address] [address] Donnie Jean, Lab DirectorItems in this order include: Comprehensive Metabolic Panel, Lipid Panel, Uric Acid , Vit D 25 [place] (Total), CBC with differential, HgbA1C, , , , Manual Differential if IndicatedReceived comment: User comments: Slide comments: Performed By: #### C 709 #### [facility] [address] [place] [address] [address] [place] [address] Basophils 1 % Normal [facility] Comment on above: Order Comment: Items in this order include: Comprehensive Metabolic Panel, Lipid Panel, Uric Acid , Vit D 25 [place] (Total), CBC with differential, HgbA1C, , , , Slide Scan if Indicated, Manual Differential if IndicatedTesting Performed By: [facility] [address] [place] [address] [address] [address] Donnie Jean, Lab DirectorItems in this order include: Comprehensive Metabolic Panel, Lipid Panel, Uric Acid , Vit D 25 [place] (Total), CBC with differential, HgbA1C, , , , Manual Differential if IndicatedReceived comment: User comments: Slide comments: Performed By: #### C 709 #### [facility] [address] [place] [address] [address] [place] [address] Lymphocytes 7 % Low 20-51 [facility] Comment on above: Order Comment: Items in this order include: Comprehensive Metabolic Panel, Lipid Panel, Uric Acid , Vit D 25 [place] (Total), CBC with differential, HgbA1C, , , , Slide Scan if Indicated, Manual Differential if IndicatedTesting Performed By: [facility] [address] [place] [address]. [place] [address] Dr. Donnie Jean, Lab DirectorItems in this order include: Comprehensive Metabolic Panel, Lipid Panel, Uric Acid , Vit D 25 [place] (Total), CBC with differential, HgbA1C, , , , Manual Differential if IndicatedReceived comment: User comments: Slide comments: Performed By: #### C 709 #### [facility] [address] [place] [address] [address] [place] [address] Macrocytes Ql (Bld) SLIGHT Normal [facility] Comment on above: Order Comment: Items in this order include: Comprehensive Metabolic Panel, Lipid Panel, Uric Acid , Vit D 25 [place] (Total), CBC with differential, HgbA1C, , , , Slide Scan if Indicated, Manual Differential if IndicatedTesting Performed By: [facility] [address] [place] [address]. [place] [address] Dr. Donnie Jean, Lab DirectorItems in this order include: Comprehensive Metabolic Panel, Lipid Panel, Uric Acid , Vit D 25 [place] (Total), CBC with differential, HgbA1C, , , , Manual Differential if IndicatedReceived comment: User comments: Slide comments: Performed By: #### C 709 #### [facility] [address] [place] [address] [address] [place] [address] Metamyelocytes 3 % High <2 [facility] Comment on above: Order Comment: Items in this order include: Comprehensive Metabolic Panel, Lipid Panel, Uric Acid , Vit D 25 [place] (Total), CBC with differential, HgbA1C, , , , Slide Scan if Indicated, Manual Differential if IndicatedTesting Performed By: [facility] [address] [place] [address]. [place] [address] Dr. Donnie Jean, Lab DirectorItems in this order include: Comprehensive Metabolic Panel, Lipid Panel, Uric Acid , Vit D 25 [place] (Total), CBC with differential, HgbA1C, , , , Manual Differential if IndicatedReceived comment: User comments: Slide comments: Performed By: #### C 709 #### [facility] [address] [place] [address] [address] [place] [address] Microcytes SLIGHT Normal SLIGHT [facility] Comment on above: Order Comment: Items in this order include: Comprehensive Metabolic Panel, Lipid Panel, Uric Acid , Vit D 25 [place] (Total), CBC with differential, HgbA1C, , , , Slide Scan if Indicated, Manual Differential if IndicatedTesting Performed By: [facility] [address] [place] [address]. [place] [address] Dr. Donnie Jean, Lab DirectorItems in this order include: Comprehensive Metabolic Panel, Lipid Panel, Uric Acid , Vit D 25 [place] (Total), CBC with differential, HgbA1C, , , , Manual Differential if IndicatedReceived comment: User comments: Slide comments: Performed By: #### C 709 #### [facility] [address] [place] [address] [address] - [place] [id number] Neutrophils 89 % High 42-75 [facility] Comment on above: Order Comment: Items in this order include: Comprehensive Metabolic Panel, Lipid Panel, Uric Acid , Vit D 25 [place] (Total), CBC with differential, HgbA1C, , , , Slide Scan if Indicated, Manual Differential if IndicatedTesting Performed By: [facility] [address] [place] [address]. [place] [address] Dr. Donnie Jean, Lab DirectorItems in this order include: Comprehensive Metabolic Panel, Lipid Panel, Uric Acid , Vit D 25 [place] (Total), CBC with differential, HgbA1C, , , , Manual Differential if IndicatedReceived comment: User comments: Slide comments: Performed By: #### C 709 #### [facility] [address] [place] [address] [place] [address] Polychromasia SLIGHT Normal [facility] Comment on above: Order Comment: Items in this order include: Comprehensive Metabolic Panel, Lipid Panel, Uric Acid , Vit D 25 [place] (Total), CBC with differential, HgbA1C, , , , Slide Scan if Indicated, Manual Differential if IndicatedTesting Performed By: [facility] [address] [place] [address]. [place] [address] Dr. Donnie Jean, Lab DirectorItems in this order include: Comprehensive Metabolic Panel, Lipid Panel, Uric Acid , Vit D 25 [place] (Total), CBC with differential, HgbA1C, , , , Manual Differential if IndicatedReceived comment: User comments: Slide comments: Performed By: #### C 709 #### [facility] [address] [place] [address] [place] [address] Uric Acidon 06-21-2020 Urate [Mass/Vol] 9.0 mg/dL High 2.5-6.2 [facility] Comment on above: Performed By: #### C 709 #### [facility] [address] [place] [address] [place] [address] Vit D 25 [place] (Total)on 2019 Vit D 25 [place] (Total) 36.9 ng/ml Normal 31.0-100.0 [facility] Comment on above: Order Comment: Items in this order include: Comprehensive Metabolic Panel, Lipid Panel, Uric Acid , Vit D 25 [place] (Total), CBC with differential, HgbA1C, , , , Slide Scan if Indicated, Manual Differential if IndicatedTesting Performed By: [facility] [address] [place] [address]. [place] [address] Dr. Donnie Jean, Lab DirectorItems in this order include: Comprehensive Metabolic Panel, Lipid Panel, Uric Acid , Vit D 25 [place] (Total), CBC with differential, HgbA1C, , , , Manual Differential if Indicated Result Comment: Defi ciency <10 ng/ml Insufficiency 10-30 ng/ml Sufficiency 31-100 ng/ml Toxicity >100 ng/ml Performed By: #### C 709 #### [facility] [address] [place] [address] [place] [address] SHADY Mammo Digital Diag RT w t [...] by: OSKAR 02/03/2020 14:27 Technologist: PRINCE Cam [facility] Mammo Digital Screen bila t w [...] will be immediately mailed to the patient. [facility] thanks you for the opportunity to care for your patient. Workstation ID: [id number] - [id number] FINAL REPORT Dictated By: Jazlyn Stuart MD 02/01/2020 14:28 Assigned Physician: Jazlyn Stuart MD Reviewed and Electronically Signed By: Jazlyn Stuart MD 02/01/2020 14:29 Transcribed by: OSKAR 02/01/2020 14:28 Technologist: JEROME Cam [facility] CBC with differentialon Erythrocyte distribution width (RBC) [Ratio] 14.7 % Normal 11.5-15.5 [facility] Comment on above: Order Comment: Items in this order include: Cholesterol, Comprehensive Metabolic Panel, Direct LDL , HDL, Uric Acid , CBC with differential, HgbA1C, , , Slide Scan if Indicated, Manual Differential if Indicated Testing Performed By: [facility] [address] [place], [place] [address] [place] [address] Dr. Donnie Jean, Wool Brusher Items in this order include: Cholesterol, Comprehensive Metabolic Panel, Direct LDL , HDL, Uric Acid , CBC with differential, HgbA1C, , , Slide Scan if Indicated, Manual Differential if Indicated Testing Performed By: [facility] [address] [place], [place] [address] [place] [address] Dr. Donnie Jean, Wool Brusher Items in this order include: Cholesterol, Comprehensive Metabolic Panel, Direct LDL , HDL, Uric Acid , CBC with differential, HgbA1C, , , Slide Scan if Indicated, Manual Differential if Indicated Testing Performed By: [facility] [address] [place], [place] [address] [place] [address] Dr. Donnie Jean, Wool Brusher Performed By: #### C 120, C141, C116, C406, C4521, C118, C47, C4523, C215 #### [facility] [address] [place] [address] [address] [place] [address] Hematocrit (Bld) [Volume fraction] 40.6 % Normal 37.0-47.0 [facility] Comment on above: Order Comment: Items in this order include: Cholesterol, Comprehensive Metabolic Panel, Direct LDL , HDL, Uric Acid , CBC with differential, HgbA1C, , , Slide Scan if Indicated, Manual Differential if Indicated Testing Performed By: [facility] [address] [place], [place] [address] [place] [address] Dr. Donnie Jean, Wool Brusher Items in this order include: Cholesterol, Comprehensive Metabolic Panel, Direct LDL , HDL, Uric Acid , CBC with differential, HgbA1C, , , Slide Scan if Indicated, Manual Differential if Indicated Testing Performed By: [facility] [address] [place] [address] Dr. Donnie Jean, Wool Brusher Items in this order include: Cholesterol, Comprehensive Metabolic Panel, Direct LDL , HDL, Uric Acid , CBC with differential, HgbA1C, , , Slide Scan if Indicated, Manual Differential if Indicated Testing Performed By: [facility] [address] [place] [address] Dr. Donnie Jean, Wool Brusher Performed By: #### C 120, C141, C116, C406, C4521, C118, C47, C4523, C215 #### [facility], [facility]. [address] [place] [address] [address] [place] [address] Hemoglobin (Bld) [Mass/Vol] 12.9 g/dL Normal 11.5-15.5 [facility] Comment on above: Order Comment: Items in this order include: Cholesterol, Comprehensive Metabolic Panel, Direct LDL , HDL, Uric Acid , CBC with differential, HgbA1C, , , Slide Scan if Indicated, Manual Differential if Indicated Testing Performed By: [facility] [address] [place] [address] Dr. Donnie Jean, Wool Brusher Items in this order include: Cholesterol, Comprehensive Metabolic Panel, Direct LDL , HDL, Uric Acid , CBC with differential, HgbA1C, , , Slide Scan if Indicated, Manual Differential if Indicated Testing Performed By: [facility] [address] [place] [address] Dr. Donnie Jean, Wool Brusher Items in this order include: Cholesterol, Comprehensive Metabolic Panel, Direct LDL , HDL, Uric Acid , CBC with differential, HgbA1C, , , Slide Scan if Indicated, Manual Differential if Indicated Testing Performed By: [facility] [address] [place] [address] Dr. Donnie Jean, Wool Brusher Performed By: #### C 120, C141, C116, C406, C4521, C118, C47, C4523, C215 #### [facility] [address] [facility] [address] [place] [address] MCH (RBC) [Entitic mass] 35.1 pg High 27.0-31.0 [facility] Comment on above: Order Comment: Items in this order include: Cholesterol, Comprehensive Metabolic Panel, Direct LDL , HDL, Uric Acid , CBC with differential, HgbA1C, , , Slide Scan if Indicated, Manual Differential if Indicated Testing Performed By: [facility] [address] [place] [address]. [place] [id number] Dr. Donnie Jean, Wool Brusher Items in this order include: Cholesterol, Comprehensive Metabolic Panel, Direct LDL , HDL, Uric Acid , CBC with differential, HgbA1C, , , Slide Scan if Indicated, Manual Differential if Indicated Testing Performed By: [facility] [address] [place] [address]. [place] [address] Dr. Donnie Jean, Wool Brusher Items in this order include: Cholesterol, Comprehensive Metabolic Panel, Direct LDL , HDL, Uric Acid , CBC with differential, HgbA1C, , , Slide Scan if Indicated, Manual Differential if Indicated Testing Performed By: [facility] [address] [place] [address]. [place] [id number] Dr. Donnie Jean, Wool Brusher Performed By: #### C 120, C141, C116, C406, C4521, C118, C47, C4523, C215 #### [facility] [address] [place] [address] [address] [place] [address] MCHC (RBC) [Mass/Vol] 31.8 g/dL Low 32.0-36.0 [facility] Comment on above: Order Comment: Items in this order include: Cholesterol, Comprehensive Metabolic Panel, Direct LDL , HDL, Uric Acid , CBC with differential, HgbA1C, , , Slide Scan if Indicated, Manual Differential if Indicated Testing Performed By: [facility] [address] [place] [address]. [place] [id number] Dr. Donnie Jean, Wool Brusher Items in this order include: Cholesterol, Comprehensive Metabolic Panel, Direct LDL , HDL, Uric Acid , CBC with differential, HgbA1C, , , Slide Scan if Indicated, Manual Differential if Indicated Testing Performed By: [facility] [address] [place] [address] Dr. Donnie Jean, Wool Brusher Items in this order include: Cholesterol, Comprehensive Metabolic Panel, Direct LDL , HDL, Uric Acid , CBC with differential, HgbA1C, , , Slide Scan if Indicated, Manual Differential if Indicated Testing Performed By: [facility] [address] [place] [address] Dr. Donnie Jean, Wool Brusher Performed By: #### C 120, C141, C116, C406, C4521, C118, C47, C4523, C215 #### [facility] [address] [place] [address] [address] [place] [address] MCV (RBC) [Entitic vol] 110.6 fL High 78.0-100.0 [facility] Comment on above: Order Comment: Items in this order include: Cholesterol, Comprehensive Metabolic Panel, Direct LDL , HDL, Uric Acid , CBC with differential, HgbA1C, , , Slide Scan if Indicated, Manual Differential if Indicated Testing Performed By: [facility] [address] [place] [address] Dr. Donnie Jean, Wool Brusher Items in this order include: Cholesterol, Comprehensive Metabolic Panel, Direct LDL , HDL, Uric Acid , CBC with differential, HgbA1C, , , Slide Scan if Indicated, Manual Differential if Indicated Testing Performed By: [facility] [address] [place] [address] Dr. Donnie Jean, Wool Brusher Items in this order include: Cholesterol, Comprehensive Metabolic Panel, Direct LDL , HDL, Uric Acid , CBC with differential, HgbA1C, , , Slide Scan if Indicated, Manual Differential if Indicated Testing Performed By: [facility] [address] [place] [address] Dr. Donnie Jean, Wool Brusher Performed By: #### C 120, C141, C116, C406, C4521, C118, C47, C4523, C215 #### [facility] [address] [facility] [address] [place] [address] Platelet mean volume (Bld) [Entitic vol] 10.6 fL Normal 8.9-12.6 [facility] Comment on above: Order Comment: Items in this order include: Cholesterol, Comprehensive Metabolic Panel, Direct LDL , HDL, Uric Acid , CBC with differential, HgbA1C, , , Slide Scan if Indicated, Manual Differential if Indicated Testing Performed By: [facility] [address] [place] [address]. [place] [address] Dr. Donnie Jean, Wool Brusher Items in this order include: Cholesterol, Comprehensive Metabolic Panel, Direct LDL , HDL, Uric Acid , CBC with differential, HgbA1C, , , Slide Scan if Indicated, Manual Differential if Indicated Testing Performed By: [facility] [address] [place] [address]. [place] [id number] Dr. Donnie Jean, Wool Brusher Items in this order include: Cholesterol, Comprehensive Metabolic Panel, Direct LDL , HDL, Uric Acid , CBC with differential, HgbA1C, , , Slide Scan if Indicated, Manual Differential if Indicated Testing Performed By: [facility] [address] [place] [address]. [place] [address] Dr. Donnie Jean, Wool Brusher Performed By: #### C 120, C141, C116, C406, C4521, C118, C47, C4523, C215 #### [facility], [facility]. [address] [place] [address] [address] [place] [address] Platelets (Bld) [#/Vol] 302 K CUMM Normal 130-400 [facility] Comment on above: Order Comment: Items in this order include: Cholesterol, Comprehensive Metabolic Panel, Direct LDL , HDL, Uric Acid , CBC with differential, HgbA1C, , , Slide Scan if Indicated, Manual Differential if Indicated Testing Performed By: [facility] [address] [place] [address]. [place] [address] Dr. Donnie Jean, Wool Brusher Items in this order include: Cholesterol, Comprehensive Metabolic Panel, Direct LDL , HDL, Uric Acid , CBC with differential, HgbA1C, , , Slide Scan if Indicated, Manual Differential if Indicated Testing Performed By: [facility] [address] [place] [address] [place] [address] Dr. Donnie Jean, Wool Brusher Items in this order include: Cholesterol, Comprehensive Metabolic Panel, Direct LDL , HDL, Uric Acid , CBC with differential, HgbA1C, , , Slide Scan if Indicated, Manual Differential if Indicated Testing Performed By: [facility] [address] [place] [address] [place] [address] Dr. Donnie Jean, Wool Brusher Performed By: #### C 120, C141, C116, C406, C4521, C118, C47, C4523, C215 #### [facility] [address] [place] [address] RBC (Bld) [#/Vol] 3.67 M CUMM Low 3.80-5.10 [facility] Comment on above: Order Comment: Items in this order include: Cholesterol, Comprehensive Metabolic Panel, Direct LDL , HDL, Uric Acid , CBC with differential, HgbA1C, , , Slide Scan if Indicated, Manual Differential if Indicated Testing Performed By: [facility] [address] [place] [address] [place] [address] Dr. Donnie Jean, Wool Brusher Items in this order include: Cholesterol, Comprehensive Metabolic Panel, Direct LDL , HDL, Uric Acid , CBC with differential, HgbA1C, , , Slide Scan if Indicated, Manual Differential if Indicated Testing Performed By: [facility] [address] [place] [address]. [place] [address] Dr. Donnie Jean, Wool Brusher Items in this order include: Cholesterol, Comprehensive Metabolic Panel, Direct LDL , HDL, Uric Acid , CBC with differential, HgbA1C, , , Slide Scan if Indicated, Manual Differential if Indicated Testing Performed By: [facility] [address] [place] [address]. [place] [address] Dr. Donnie Jean, Wool Brusher Performed By: #### C 120, C141, C116, C406, C4521, C118, C47, C4523, C215 #### [facility] [address] [place] [address] WBC (Bld) [#/Vol] 19.7 K CUMM High 3.8-10.6 [facility] Comment on above: Order Comment: Items in this order include: Cholesterol, Comprehensive Metabolic Panel, Direct LDL , HDL, Uric Acid , CBC with differential, HgbA1C, , , Slide Scan if Indicated, Manual Differential if Indicated Testing Performed By: [facility] [address] [facility] [address] [address] Dr. Donnie Jean, Wool Brusher Items in this order include: Cholesterol, Comprehensive Metabolic Panel, Direct LDL , HDL, Uric Acid , CBC with differential, HgbA1C, , , Slide Scan if Indicated, Manual Differential if Indicated Testing Performed By: [facility] [place] [address] Dr. Donnie Jean, Wool Brusher Items in this order include: Cholesterol, Comprehensive Metabolic Panel, Direct LDL , HDL, Uric Acid , CBC with differential, HgbA1C, , , Slide Scan if Indicated, Manual Differential if Indicated Testing Performed By: [facility] [place] [address] Dr. Donnie Jean, Wool Brusher Performed By: #### C 120, C141, C116, C406, C4521, C118, C47, C4523, C215 #### [facility] [address] [place] [id number] Cholesterolon 01-18-2020 Cholesterol [Mass/Vol] 112 mg/dL Normal <200 [facility] Comment on above: Order Comment: Items in this order include: Cholesterol, Comprehensive Metabolic Panel, Direct LDL , HDL, Uric Acid , CBC with differential, HgbA1C, , , Slide Scan if Indicated, Manual Differential if Indicated Testing Performed By: [facility] [place] [id number] Dr. Donnie Jean, Wool Brusher Performed By: #### C 120, C141, C116, C406, C4521, C118, C47, C4523, C215 #### [facility] [address] [place] [address] Comprehensive Metabolic Pane donnie 03-02-2020 Albumin [Mass/Vol] 4.0 g/dL Normal 3.5-5.0 [facility] Comment on above: Performed By: #### C 120, C141, C116, C406, C4521, C118, C47, C4523, C215 #### [facility] [address] [place] [address] Alk Phos 74 U/L Normal 23-159 [facility] Comment on above: Performed By: #### C 120, C141, C116, C406, C4521, C118, C47, C4523, C215 #### [facility] [address] [facility] [address] [place] [address] ALT [Catalytic activity/Vol] 18 U/L Normal 0-38 [facility] Comment on above: Performed By: #### C 120, C141, C116, C406, C4521, C118, C47, C4523, C215 #### [facility] [address] [facility] [address] [place] [address] AST [Catalytic activity/Vol] 22 U/L Normal 11-43 [facility] Comment on above: Performed By: #### C 120, C141, C116, C406, C4521, C118, C47, C4523, C215 #### [facility] [address] [facility] [address] [place] [address] Bilirubin [Mass/Vol] 0.6 mg/dL Normal 0.2-1.3 [facility] Comment on above: Performed By: #### C 120, C141, C116, C406, C4521, C118, C47, C4523, C215 #### [facility] [address] [facility] [address] [place] [address] Calcium [Mass/Vol] 9.2 mg/dL Normal 8.5-10.5 [facility] Comment on above: Performed By: #### C 120, C141, C116, C406, C4521, C118, C47, C4523, C215 #### [facility] [address] [place] [address] Chloride [Moles/Vol] 101 mmol/L Normal 98-107 [facility] Comment on above: Performed By: #### C 120, C141, C116, C406, C4521, C118, C47, C4523, C215 #### [facility] [address] [place] [address] CO2 [Moles/Vol] 22.0 mmol/L Normal 21.0-32.0 [facility] Comment on above: Performed By: #### C 120, C141, C116, C406, C4521, C118, C47, C4523, C215 #### [facility] [address] [facility] [place] [address] Creatinine [Mass/Vol] 1.2 mg/dL Normal 0.1-1.2 [facility] Comment on above: Performed By: #### C 120, C141, C116, C406, C4521, C118, C47, C4523, C215 #### [facility] [address] [facility] [place] [address] GFR/1.73 sq M.predicted MDRD (S/P/Bld) [Vol rate/Area] 43 mL/min per 1.73 Low >60 [facility] Comment on above: Result Comment: The GFR estimate is not adjusted for race. If the patient's race is -[place], the GFR estimate must be multiplied by a factor of 1.21. Performed By: #### C 120, C141, C116, C406, C4521, C118, C47, C4523, C215 #### [facility] [address] [place] [address] Glucose [Mass/Vol] 157 mg/dL High 74-100 [facility] Comment on above: Performed By: #### C 120, C141, C116, C406, C4521, C118, C47, C4523, C215 #### [facility] [address] [facility] [address] [place] [address] Potassium [Moles/Vol] 4.3 mmol/L Normal 3.5-5.3 [facility] Comment on above: Performed By: #### C 120, C141, C116, C406, C4521, C118, C47, C4523, C215 #### [facility] [address] [facility] [address] [place] [address] Protein [Mass/Vol] 6.7 g/dL Normal 6.3-8.4 [facility] Comment on above: Performed By: #### C 120, C141, C116, C406, C4521, C118, C47, C4523, C215 #### [facility] [address] [facility] [address] [place] [address] Sodium [Moles/Vol] 136 mmol/L Normal 135-145 [facility] Comment on above: Performed By: #### C 120, C141, C116, C406, C4521, C118, C47, C4523, C215 #### [facility] [facility] [address] [place] [address] Urea nitrogen [Mass/Vol] 25 mg/dL High 6-22 [facility] Comment on above: Performed By: #### C 120, C141, C116, C406, C4521, C118, C47, C4523, C215 #### [facility] [address] [facility] [address] [place] [address] Direct LDLon 01-18-2020 Cholesterol in LDL [Mass/Vol] 49 mg/dL Normal <130 [facility] Comment on above: Order Comment: Items in this order include: Cholesterol, Comprehensive Metabolic Panel, Direct LDL , HDL, Uric Acid , CBC with differential, HgbA1C, , , Slide Scan if Indicated, Manual Differential if Indicated Testing Performed By: [facility] [address] [place] [address]. [place] [id number] Dr. Donnie Jean, Wool Brusher Result Comment: LDL goal dependent upon individual risk Performed By: #### C 120, C141, C116, C406, C4521, C118, C47, C4523, C215 #### [facility] [address] [facility] [address] [place] [address] HDLon 01-18-2020 Cholesterol in HDL [Mass/Vol] 30 mg/dL Low >50 [facility] Comment on above: Performed By: #### C 120, C141, C116, C406, C4521, C118, C47, C4523, C215 #### [facility] [facility] [address] [place] [id number] 01-18-2020 HbA1c (Bld) [Mass fraction] 6.7 % High <5.7 [facility] Comment on above: Order Comment: Items in this order include: Cholesterol, Comprehensive Metabolic Panel, Direct LDL , HDL, Uric Acid , CBC with differential, HgbA1C, , , Slide Scan if Indicated, Manual Differential if IndicatedTesting Performed By: [facility] [address] [place] [address]. [place] [id number] Dr. Donnie Jean, Wool Brusher Result Comment: Refe rence Interval: Normal: below 5.7%. Prediabetes: 5.7% to 6.4%. Diabetes: 6.5% or above. Performed By: #### C 709 #### [facility] [facility] [place] [address] Manual Differential if Indic atedon 01-18-2020 Anisocytosis Ql (Bld) SLIGHT Normal [facility] Comment on above: Order Comment: Jorge L galvan comment: User comments: Slide comments: Performed By: #### C 120, C141, C116, C406, C4521, C118, C47, C4523, C215 #### [facility] [facility] [place] [address] Performed By: #### C 709 #### [facility] [address] [place] [address] Basophils 2 % Normal [facility] Comment on above: Order Comment: Recei mandy comment: User comments: Slide comments: Performed By: #### C 120, C141, C116, C406, C4521, C118, C47, C4523, C215 #### [facility] [address] [place] [address] [place] Cells SLIGHT Normal [facility] Comment on above: Order Comment: Recei mandy comment: User comments: Slide comments: Performed By: #### C 120, C141, C116, C406, C4521, C118, C47, C4523, C215 #### [facility] [address] [place] [address] Performed By: #### C 709 #### [facility] [address] [place] [address] Hypochromasia SLIGHT Normal SLIGHT [facility] Comment on above: Order Comment: Recei mandy comment: User comments: Slide comments: Performed By: #### C 120, C141, C116, C406, C4521, C118, C47, C4523, C215 #### [facility] [address] [place] [address] Performed By: #### C 709 #### [facility] [address] [place] [address] Lymphocytes 4 % Low 20-51 [facility] Comment on above: Order Comment: Recei mandy comment: User comments: Slide comments: Performed By: #### C 120, C141, C116, C406, C4521, C118, C47, C4523, C215 #### [facility] [address] [place] [address] Macrocytes Ql (Bld) SLIGHT Normal [facility] Comment on above: Order Comment: Recei mandy comment: User comments: Slide comments: Performed By: #### C 120, C141, C116, C406, C4521, C118, C47, C4523, C215 #### [facility] [address] [place] [address] Performed By: #### C 709 #### [facility] [address] [place] [address] Monocytes 3 % Normal 2-9 [facility] Comment on above: Order Comment: Recei mandy comment: User comments: Slide comments: Performed By: #### C 120, C141, C116, C406, C4521, C118, C47, C4523, C215 #### [facility] [address] [place] [address] Neutrophils 91 % High 42-75 [facility] Comment on above: Order Comment: Recei mandy comment: User comments: Slide comments: Performed By: #### C 120, C141, C116, C406, C4521, C118, C47, C4523, C215 #### [facility] [address] [place] [address] Ovalocytes SLIGHT Normal [facility] Comment on above: Order Comment: Recei mandy comment: User comments: Slide comments: Performed By: #### C 120, C141, C116, C406, C4521, C118, C47, C4523, C215 #### [facility] [address] [place], [place] [address] Performed By: #### C 709 #### [facility] [address] [place] [address] Poikilocytosis SLIGHT Normal [facility] Comment on above: Order Comment: Recei mandy comment: User comments: Slide comments: Performed By: #### C 120, C141, C116, C406, C4521, C118, C47, C4523, C215 #### [facility] [address] [place] [address] Performed By: #### C 709 #### [facility] [address] [place] [address] Polychromasia SLIGHT Normal [facility] Comment on above: Order Comment: Jorge L galvan comment: User comments: Slide comments: Performed By: #### C 120, C141, C116, C406, C4521, C118, C47, C4523, C215 #### [facility] [address] [place] [address] Performed By: #### C 709 #### [facility] [address] [place] [address] Uric Acidon 01-18-2020 Urate [Mass/Vol] 5.2 mg/dL Normal 2.5-6.2 [facility] Comment on above: Performed By: #### C 120, C141, C116, C406, C4521, C118, C47, C4523, C215 #### [facility] [address] [place] [address] Vital Signs Date Time Vital Sign Value Performing Clinician Faci lity 01-06-2024 14:30-0500 Body height 162.6 cm Leighton Horvath MD Work Phone: [facility] 01-06-2024 14:30-0500 Body mass index (BMI) [Ratio] 29.02 kg/m2 Leighton Horvath MD Work Phone: [facility] 01-06-2024 14:30-0500 Body temperature 97.7 [degF] Leighton Horvath MD Work Phone: [facility] 01-06-2024 14:30-0500 Body weight 76.7 kg Leighton Horvath MD Work Phone: [facility] Encounters Encounter Date Encounter Type Care Provider Facility Start: 01-06-2024 End: 01-07-2024 ambulatory [facility] Start: 01-06-2024 End: 01-06-2024 Office outpatient visit 15 minutes Leighton Horvath MD Work Phone: [facility] Comment on above: Closed displaced fra cture of right acetabulum with routine healing, unspecified portion of acetabulum, subsequent encounter (Primary Dx) Start: 12-09-2023 End: 12-09-2023 ambulatory ANTONIO Stoddard APLING Not Available Start: 10-21-2023 End: 10-21-2023 ambulatory ANTONIO Stoddard APLING Not Available Start: 09-30-2023 End: 10-01-2023 ambulatory ANTONIO Stoddard APLING Not Available Start: 09-20-2023 End: 09-20-2023 ambulatory [facility] Start: 03-08-2023 End: 03-08-2023 ambulatory BECK RENEE Facility:[facility] Start: 03-01-2023 End: 03-01-2023 ambulatory BECK RENEE Facility:[facility] Start: 02-19-2023 ambulatory BECK RENEE Facility: [facility] Start: 02-06-2023 End: 02-06-[address] SON HADLEY Facility:[facility] Start: 01-18-2023 End: 01-19-2023 ambulatory BECK RENEE Facility:[facility] Start: 01-18-2023 End: 01-18-2023 ambulatory BECK RENEE Facility:[facility] Start: 12-25-2022 End: 12-25-2022 [facility] Start: 06-26-2022 End: 06-27-2022 ambulatory YOU BARILLAS Facility:[facility] Start: 05-08-2022 End: 05-09-[address] BENNIE ALBRIGHT . Facility:[facility] Start: 04-03-2022 End: 04-18-2022 ambulatory LOU RANDHAWA Facility:[facility] Start: 04-01-2022 End: 04-16-2022 Evaluation and management of inpatient Genaro Torrezd Facility:[facility] Start: 03-22-2022 End: 04-01-2022 Evaluation and management of inpatient DR FARSHAD DONALDSON . Facility:[facility] Start: 11-02-2021 ambulatory CHICARO MARIANOCHELI Facility :[facility] Start: 08-17-2021 [facility] Start: 07-21-2020 End: 07-21-2020 Patient encounter procedure ARA COFFMAN [facility] Procedures Date Procedure Procedure Detail Performing Clinician Start: 01-06-2024 Follow-up visit Follow-up LEIGHTON HORVATH Start: 04-03-2022 Antibody screen LOU Stephen CRISTY Comment on above: Performed By: #### 8 [id number] #### [address] Plan of Treatment Date Care Activity Detail Author Start: 01-06-2025 Adult BMI Screening Adult BMI Screening [facility] Start: 01-06-2025 Tobacco Screening Tobacco Screening [facility] Start: 07-30-2024 End: 07-30-2024 Patient encounter procedure 07/30/2024 1:00 PM EDT Office Visit Amairani Lowry [facility] [address] [place] [id number] Laurel Mueller MD [address] [place] [address] [address] [place] [address] Amairani Lowry [facility] Start: 07-19-2023 COVID-19 Vaccine ( season) COVID-19 Vaccine ( season) [facility] Start: 07-19-2023 Influenza vaccination Influenza Vaccine [facility] Start: 07-09-2017 Administration of varicella zoster vaccine Zoster (Shingles) Vaccine (1 of 2) [facility] Start: 2004 Fall Risk Screening Fall Risk Screening [facility] Start: 1958 DTaP,Tdap and Td Vaccines (1 - Tdap) DTaP,Tdap and Td Vaccines (1 - Tdap) [facility] Start: 1957 Adult BMI Follow Up Plan Adult BMI Follow Up Plan [facility] Start: 1951 Depression Screening Depression Screening [facility] Start: 1940 Medicare Annual Wellness Visit Medicare Annual Wellness Visit [facility] Immunizations Immunization Date Immunization Notes Care Provider Junior tompkins 03-08-2022 COVID-19, mRNA, LNP- S, PF, 100mcg/0.5mL Dose Leighton Horvath MD Work Phone: [facility] 08-10-2021 pneumococcal conjuga te vaccine, 13 faraz Horvath MD Work Phone: [facility] 08-22-2020 Influenza, High-dose , Quadrivalent Leighton Horvath MD Work Phone: [facility] 08-22-2020 pneumococcal conjuga te vaccine, 13 faraz Horvath MD Work Phone: [facility] 08-22-2020 influenza virus vacc ine, unspecified formulation Leighton Horvath MD Work Phone: [facility] 05-10-2020 pneumococcal polysaccharide vaccine, 23 emmieent Leighton Horvath MD Work Phone: [facility] 09-21-2019 influenza, high dose seasonal, preservative-free Leighton Horvath MD Work Phone: [facility] 10-21-2018 influenza, high dose seasonal, preservative-free Leighton Horvath MD Work Phone: [facility] 05-14-2017 zoster vaccine, live Leighton Horvath MD Work Phone: [facility] 05-14-2017 zoster vaccine, unspecified formulation Leighton Horvath MD Work Phone: [facility] 09-10-2016 influenza, high dose seasonal, preservative-free Leighton Horvath MD Work Phone: [facility] 09-10-2016 pneumococcal conjuga te vaccine, 13 faraz Horvath MD Work Phone: [facility] 09-01-2015 influenza, high dose seasonal, preservative-free Leighton Horvath MD Work Phone: [facility] 08-26-2014 influenza, seasonal, injectable Leighton Horvath MD Work Phone: [facility] 08-26-2014 pneumococcal polysaccharide vaccine, 23 valent Leighton Horvath MD Work Phone: [facility] 08-26-2013 influenza, seasonal, injectable Leighton Horvath MD [facility] Payers Date Payer Category Payer Medicare [employer] MEDICARE UHC MEDICARE ADVANTAGE PPO [id number] 2022-Present [phone] [address] [address] [place] [address] [id number] 2021 Medicaid MEDICAID [facility] EDICAID [id number] 2021-Present [phone] [address] [place] [address] [id number] 2019 Medicare [id number] 1960 Medicaid [id number] 1959 Medicare [id number] 1959 Private Health Insurance [id number] 1940 Unknown [id number] 2.16.840.1.300100.3.579. 2.900 1939 Unknown [id number] 2.16.840.1.259433.3.579. 2.594 1939 Unknown [id number] 2.16.840.1.716966.3.579. 2.594 1939 Unknown [id number] 2.16.840.1.294823.3.579. 2.594 1939 Unknown [id number] 2.16.840.1.506634.3.579. 2.647 1939 Unknown [id number] 2.16.840.1.071403.3.579. 2.647 1939 Unknown [id number] 2.16.840.1.528058.3.579. 2.647 1939 Unknown [id number] 2.16.840.1.026174.3.579. 2.593 1939 Unknown [id number] 2.16.840.1.889825.3.579. 2.593 1939 Unknown [id number] 2.16.840.1.044391.3.579. 2.593 1939 Unknown [id number] 2.16.840.1.510936.3.579. 2.593 1939 Unknown [id number] 2.16.840.1.965702.3.579. 2.593 1939 Unknown [id number] 2.16.840.1.291073.3.579. 2.593 1939 Unknown [id number] 2.16.840.1.738505.3.579. 2.593 1939 Unknown [id number] 2.16.840.1.368837.3.579. 2.593 1939 Unknown [id number] 2.16.840.1.983704.3.579. 2.1259 1939 Unknown [id number] 2.16.840.1.064733.3.579. 2.1259 1939 Unknown [id number] 2.16.840.1.703886.3.579. 2.1259 1939 Unknown [id number] 2.16.840.1.125745.3.579. 2.1259 1939 Unknown [id number] 2.16.840.1.102248.3.579. 2.1286 1939 Unknown [id number] 2.16.840.1.724192.3.579. 2.1286 Social History Date Type Detail Facility Start: 02-07-2023 Tobacco smoking stat NHIS Ex-smoker [facility] History of tobacco use Current smoker [facility] History of tobacco use Cigarette Smoker [facility] Start: 02-07-2023 Tobacco use and exposure Smokeless tobacco non-user [facility] Start: 01-07-2024 Alcohol intake Ex-drinker (finding) [facility] Start: 01-06-2024 End: 01-07-2024 History of Social function [facility] Start: 01-06-2024 End: 01-07-2024 Tobacco use panel [facility] Are you worried or concerned that in the next two months you may not have stable housing that you own, rent or stay in as a part of a household? No [facility] Start: 1940 Sex Assigned At Female [facility] Medical Equipment Procedure Code Equipment Code Equipment Origin al Text Equipment Identifier Dates Plate Bn [id number] m / Tblr 6 Hl Colr Ss .5mm 12mm Ns - [id number] Start: 02-08-2023 Screw Bn 26mm 4m m 6mm Sm Hex Sckt Canc Ss 2.5mm Ft Ns Sm - [id number] Start: 02-08-2023 Goals Date Patient Goal [...] Leighton Horvath MD documented in this encounter [facility] Progress note 09-20-2023 Note Date & Type Note Facility 09-20-2023 Note [facility] Subjective María Elena Tafoya is a [...] in March 2022 was admitted to the [facility] and then [facility] with acute gallstone pancreatitis, acute blood loss [...] thickness/hypertrophy. Systolic function (more content not included)... [facility] Progress note 12-25-2022 Note Date & Type Note Facility 12-25-2022 Note Cardiovascular Medic ine [facility] SUBJECTIVE Chief Complaint Patient presents with Atrial Fibrillation María Elena Tafoya is a 82 y.o. female here for follow-up. HPI She is an 82-year-old woman who was admitted in March 2022 to [facility] and then [facility] with acute gallstone pancreatitis, acute blood loss [...] POC 06/26/2022 11 (more content not included)... [facility] Progress note 12-25-2022 Note Date & Type Note Facility 12-25-2022 Note Patient here for fol low up [place] on event monitor per Dr. Leos. Patient denies chest pain and SOB. Feels good. Review of Systems All other systems reviewed and are negative. [facility] Discharge summary note 04-16-2022 Note Date & Type Note Facility 04-16-2022 Note MR#: [id number] [facility] Pt. Name: María Elena Tafoya Admitted: 04/01/2022 [...] Gordillo MD Date Trans: 04/16/2022 09:55 A/erik [id number] cc: Bennie Albright M.D. [address] [address] [facility] Discharge summary note 04-13-2022 Note Date & Type Note Facility 04-13-2022 Note MR#: [id number] [facility] Pt. Name: María Elena Tafoya Admitted: 04/01/2022 [...] history as above, who was transferred from [facility] secondary to gallstone induced acute pancreatitis. She [...] sign and the patient was admitted to [facility] for further treatment. She was aggressively rehydrated [...] to repeat a voiding trial at the correction in 1-3 days and follow up with provider at that facility, however, her discharge is currently pending precert, so if she does remain at this facility, we may also just discontinue (more content not included)... [facility] Evaluation note Note Date & Type Note Facility Evaluation note Diagnosis Closed displaced fracture of right acetabulum with routine healing, unspecified portion of acetabulum, subsequent encounter- Primary documented in this encounter [employer] Instructions Note Date & Type Note [...] FoundDocuments on File Type Date Recorded Patient [employer] Cutter Expl anation Advance Directive 01/18/2022 1:07 PM DNR Advance Directive 01/18/2022 11:00 AM [employer] Latest Code Status on File Code Status Date Activated Date Inactivated Comments Full Code 02/07/2023 12:03 AM 02/12/2023 3:45 PM Healthcare Agents on File Name Relationship Healthcare Agent Relationship Communication Andreea Liz Health Care Agent [email or web address] Additional Source Comments INFORMATION SOURCE (unrecogn ized section and content) DATE CREATED AUTHOR 02/04/2020 [facility] DATE CREATED AUTHOR AUTHOR'S ORGANIZ ATION 08/23/2020 [facility] DATE CREATED AUTHOR AUTHOR'S ORGANIZ ATION 09/28/2020 [facility] DATE CREATED AUTHOR AUTHOR'S ORGANIZ ATION 02/12/2021 [facility] DATE CREATED AUTHOR AUTHOR'S ORGANIZ ATION 02/07/2022 [facility] DATE CREATED AUTHOR AUTHOR'S ORGANIZ ATION 07/13/2022 [facility] DATE CREATED AUTHOR AUTHOR'S ORGANIZ ATION 03/15/2023 [facility] DATE CREATED AUTHOR AUTHOR'S ORGANIZ ATION 09/21/2023 [facility] DATE CREATED AUTHOR AUTHOR'S ORGANIZ ATION 12/09/2023 [facility] DATE CREATED AUTHOR AUTHOR'S ORGANIZ ATION 01/08/2024 [facility] Reason for Visit (unrecogniz ed section [...] BE BASED ON THE PRIMARY CLINICAL RECORDS. [facility] [employer] [facility]. provides no warranty or guarantee of the accuracy or completeness of information in this document.
--- NOTE | 2024-02-29 13:18 | CT_ITS ---
The [address] [address] Patient Name: MASSIEL HUNT MRN: [id number] date: 1940 Sex: F Assigned Patient Location: [place] Current Patient Location: [place] Accession/Order Number: [id number] Exam Date: 02/29/2024 13:45 Report Date: 02/29/2024 14:23 At the request of: SHAIKH CLARITZA Procedure: CT head/brain wo con CT head/brain wo con, 02/29/2024 1:45 PM EDT INDICATION: Altered mental status COMPARISON: There is no appropriate prior study for comparison. TECHNIQUE: Axial CT images of the brain from skull base to vertex, including portions of the face and sinuses, were obtained without contrast . Multiplanar reformatted images were generated and reviewed as needed. Dose reduction techniques were achieved by using automated exposure control and/or adjustment of mA and/or kV according to patient size and/or use of iterative reconstruction technique. FINDINGS: The cerebral sulci as well as ventricular system are appropriate for age. There is no intracranial mass, mass effect, midline shift, intra or extra-axial fluid collection or hemorrhage. Periventricular and centrum semiovale hypodensities are most likely consistent with microvascular ischemic changes. Lacunar infarct versus enlarged perivascular space within the left basal ganglia is noted. Mild mucosal thickening within the maxillary sinuses and ethmoidal cells is noted. The visualized portions of orbits, mastoid air cells as well as remainder of paranasal sinuses are unremarkable. There is no suspicious osteolytic or osteoblastic lesion. CT/CT head/brain wo con IMPRESSION: No acute intracranial process is noted. Electronically authenticated by: ALTON MAHMOOD Date: 02/29/2024 14:23
--- NOTE | 2024-02-29 13:19 | P.HP_ITS ---
HPI H&P: HPI History of Present Illness Chief complaint: Altered Mental Status Pneumonia Hypoxemia Sepsis Narrative: 83 y o female sent from group home for generalized weakness, malaise along with Cough x2 days. She also received COVID vaccine around the same time and initially it was presumed that her symptoms are related to COVID vaccine. Patient was evaluated in ED and her work revealed sepsis sec to left lower lobe Pneumonia and she was admitted for inpatient management. I evaluated her when she arrived on floor. She is drowsy, easily arousable. Patient is also confused and disoriented to place and time. I could not get any meaningful information from her as she kept dozing off during my assessment. She was noted to be tachypneic during exam and otherwise did not appear to be in any respiratory distress. She also appears very dry on clinical exam. I will start her on IVF NS 1 L bolus, check stat ABG and CTH for altered mental status to r/o acute intracranial pathology and acute resp acidosis. Care plan discussed with RN. Opioid HPI Opioid Management Most Recent Opioid Data: Last ORT Total Score 0 02/29/24 12:35 Last ORT Risk Category Low Risk 02/29/24 12:35 Review of Systems ROS Status of ROS unobtainable due to mental status PFSH [facility] Medical History (Updated 02/29/24 @ 13:41 by Shaikh Nolberto MD) Afib ?I48.91 - Unspecified atrial fibrillation (ICD-10) CKD (chronic kidney disease) stage 4, GFR 15-29 ml/min ?N18.4 - Chronic kidney disease, stage 4 (severe) (ICD-10) CLL (chronic lymphocytic leukemia) ?C91.10 - Chronic lymphocytic leukemia of B-cell type not having achieved remission (ICD-10) Broken ankle ?S82.899A - Other fracture of unspecified lower leg, initial encounter for closed fracture (ICD-10) Broken wrist ?S62.109A - Fracture of unspecified carpal bone, unspecified wrist, initial encounter for closed fracture (ICD-10) Diabetes mellitus ?E11.9 - Type 2 diabetes mellitus without complications (ICD-10) Alzheimer's dementia ?G30.9 - Alzheimer's disease, unspecified (ICD-10) ?F02.80 - Dementia in other diseases classified elsewhere, unspecified severity, without behavioral disturbance, psychotic disturbance, mood disturbance, and anxiety (ICD-10) HX: breast cancer ?Z85.3 - Personal history of malignant neoplasm of breast (ICD-10) Surgical History (Updated 02/29/24 @ 12:55 by Alba Jennings LPN) H/O right mastectomy ?Z90.11 - Acquired absence of right breast and nipple (ICD-10) Meds Home Medications and Allergies Home Medications ?Medication ?Instructions ?Recorded ?Confirmed ?Type acetaminophen 325 mg tablet 650 mg PO Q4H PRN fever or pain 02/29/24 02/29/24 History albuterol sulfate 2.5 mg/3 mL 2.5 mg inhalation Q6H PRN 02/29/24 02/29/24 History (0.083 %) solution for nebulization shortness of breath allopurinol 100 mg tablet 100 mg PO DAILY 02/29/24 02/29/24 History aluminum-mag hydroxide-simethicone 15 ml PO Q4H PRN indigestion 02/29/24 02/29/24 History 200 mg-200 mg-20 mg/5 mL oral susp (Advanced Antacid-[place]) amiodarone 200 mg tablet 200 mg PO DAILY 02/29/24 02/29/24 History ascorbic acid (vitamin C) 500 mg 500 mg PO DAILY 02/29/24 02/29/24 History tablet (Vitamin C) aspirin 81 mg tablet,delayed 81 mg PO DAILY 02/29/24 02/29/24 History release (Adult Aspirin Regimen) calcium carbonate 600 mg calcium 600 mg PO TID 02/29/24 02/29/24 History (1,500 mg) tablet (Calcium) cholecalciferol (vitamin D3) 25 1,000 unit PO DAILY 02/29/24 02/29/24 History mcg (1,000 unit) tablet (Vitamin D3) letrozole 2.5 mg tablet 2.5 mg PO BEDTIME 02/29/24 02/29/24 History metoprolol tartrate 25 mg tablet 25 mg PO Q12H 02/29/24 02/29/24 History multivitamin 1 tab PO BID 02/29/24 02/29/24 History polyethylene glycol 3350 17 gram 17 g PO DAILY PRN constipation 02/29/24 02/29/24 History oral powder packet (Miralax) sennosides 8.6 mg-docusate sodium 1 tab-cap PO BID PRN constipation 02/29/24 02/29/24 History 50 mg tablet (Senna with Docusate Sodium) tramadol 50 mg tablet 50 mg PO Q6H PRN pain 02/29/24 02/29/24 History Allergies Allergy/AdvReac Type Severity Reaction Status Date / Time bacitracin Allergy Intermediate Verified 02/29/24 09:43 dexamethasone [From TobraDex] Allergy Intermediate Verified 02/29/24 09:43 erythromycin base Allergy Intermediate Verified 02/29/24 09:43 ibuprofen Allergy Intermediate Verified 02/29/24 09:43 Iodinated Contrast Media Allergy Intermediate Verified 02/29/24 09:43 Latex, Natural Rubber Allergy Intermediate Verified 02/29/24 09:43 neomycin Allergy Intermediate Verified 02/29/24 09:43 shellfish derived Allergy Intermediate Verified 02/29/24 09:43 Sulfa (Sulfonamide Allergy Intermediate Verified 02/29/24 09:43 Antibiotics) tobramycin [From TobraDex] Allergy Intermediate Verified 02/29/24 09:43 Exam Constitutional Vital Signs, click to edit/add: Last Vital Signs Temp 97.0 F L 02/29/24 12:43 Pulse 90 02/29/24 12:43 Resp 18 02/29/24 12:43 BP 157/82 H 02/29/24 12:43 Pulse Ox 92 L 02/29/24 12:43 O2 Del Method Nasal Cannula 02/29/24 12:43 O2 Flow Rate 2 02/29/24 12:43 Exam limitations: altered mental status General appearance: lethargic and frail appearing Orientation/consciousness: Yes confused and Yes lethargic Respiratory Effort & inspection: tachypneic, decreased respiratory effort and actively coughing Auscultation: rhonchi throughout and diminished lung sounds Cardio Common normals: regular rate, regular rhythm, S1 normal heart sound and S2 normal heart sound GI Common normals: Normal to inspection, nondistended, normoactive bowel sounds present, soft to palpation and non-tender Extremity Common normals: normal to inspection and no clubbing, cyanosis or edema Neuro Celeste Coma Scale: document GCS findings [place] coma scale eye opening: Spontaneous Celeste coma scale verbal response: Confused Celeste coma scale motor response: Obey commands Celeste coma scale total score: 14 Common normals: moves all extremities Sensorium/orientation: orientation impaired, lethargic and somnolent Meningeal signs: no meningeal signs Gait (neuro): unable to assess gait Psych Appearance: grossly normal Speech: incoherent Thought process: confused Results Labs Labs: Short CBC 02/29/24 Range/Units 09:57 WBC 28.0 H (4.0-11.0) 10^3/uL Hgb 15.5 (12.0-16.0) g/dL Hct 50.7 H (36.0-48.0) % Plt Count 320 (150-450) 10^3/uL BMP 02/29/24 09:57 Sodium 137 Potassium 4.6 Chloride 102 Carbon Dioxide 20.1 L BUN 34.0 H Creatinine 2.00 H Glucose 163 H Calcium 9.2 Liver Function 02/29/24 Range/Units 09:57 Total Bilirubin 0.6 (0.2-1.0) mg/dL AST 38 H (15-37) U/L ALT 68 H (14-59) U/L Alkaline Phosphatase 92 (46-116) U/L Albumin 3.0 L (3.4-5.0) g/dL Urine 02/29/24 Range/Units 09:53 Urine Color Lt. yellow (YELLOW) Urine Clarity Clear (CLEAR) Urine pH 6.0 (5.0-9.0) Ur Specific [place] >=1.030 A (1.005-1.025) Urine Protein >=300 A (NEG/TRACE) mg/dL Urine Glucose (UA) Negative (NEGATIVE) mg/dL Assessment and Plan Assessment and Plan (1) Sepsis: Assessment and Plan: Meets SIRS criteria (HR 105, RR > 30), source of infection left lower lobe Pna Severe sepsis as patient also has altered mental status. BP is stable but patient appears clinically dry. Received one litre IVF in ED, Ordered one more L Saline. Will be careful with IVF due to her age and hx of CKD 4 Follow up blood, sputum and urine cx. C/w IV rocephin/Levaquin. Qualifiers: Sepsis acute organ dysfunction status: with acute organ dysfunction Sepsis type: sepsis due to unspecified organism Severe sepsis acute organ dysfunction type: unspecified Severe sepsis shock status: without septic shock Qualified Code(s): A41.9 - Sepsis, unspecified organism; R65.20 - Severe sepsis without septic shock (2) Rhinovirus infection: Assessment and Plan: Tested positive for rhinovirus and her current presentation could be from viral pneumonia. However, empirically treating for bacterial PNA and UTI. (3) Acute respiratory failure with hypoxia: Assessment and Plan: Likely due to pneumonia ( viral vs bacterial or concurrent viral and bacterial PNA) C/w duonebs, IVF. Will start on PO prednisone to help with inflammatory process and help improve air movement. Monitor closely. Patient was 89% on RA on arrival. (4) Pneumonia: Assessment and Plan: Left lower lobe infiltrate. Also tested positive for rhinovirus. I will treat empirically for bacterial PNA also due to her comorbid conditions and high risk of poor prognosis and outcome. Follow up blood and sputum cx. Qualifiers: Laterality: left Lung location: lower lobe of lung Pneumonia type: due to unspecified organism Qualified Code(s): J18.9 - Pneumonia, unspecified organism (5) Altered mental status: Assessment and Plan: William has hx of dementia at baseline. Currently drowsy/confused. Could be due to sepsis, dehydration - however, will order stat CTH and ABG to ro acute intracranial pathology or acute resp acidosis. Qualifiers: Altered mental status type: somnolence Qualified Code(s): R40.0 - Somnolence (6) UTI (urinary tract infection): Assessment and Plan: Abnormal UA. unsure whether or not patient has urinary symptoms. Urine cx ordered On appropriate abx. Qualifiers: Urinary tract infection type: acute cystitis Hematuria presence: with hematuria Qualified Code(s): N30.01 - Acute cystitis with hematuria (7) Lactic acidosis: Assessment and Plan: due to sepsis, dehydration. Repeat lactic acid. Patient is on IVF. (8) CKD (chronic kidney disease) stage 4, GFR 15-29 ml/min: Assessment and Plan: CKD with baseline Cr of 2 At baseline. Monitor. (9) Afib: Assessment and Plan: Unable to obtain information due to patients mental status. On amiodarone. Qualifiers: Atrial fibrillation type: paroxysmal Qualified Code(s): I48.0 - Paroxysmal atrial fibrillation (10) CLL (chronic lymphocytic leukemia): Assessment and Plan: In remission. Baseline WBC is 20-30 K Monitor. (11) Alzheimer's dementia: Assessment and Plan: Hx of dementia. In fdc. Qualifiers: Alzheimer's disease onset: late onset Dementia severity: unspecified severity Dementia behavioral or psychological symptom: unspecified whether behavioral, psychotic, or mood disturbance or anxiety Qualified Code(s): G30.1 - Alzheimer's disease with late onset; F02.80 - Dementia in other diseases classified elsewhere, unspecified severity, without behavioral disturbance, psychotic disturbance, mood disturbance, and anxiety (12) HX: breast cancer: Assessment and Plan: s/p mastectomy. on letrozole. Plan Patient presents with sepsis, hypoxia, altered mental status. Has multiple comorbidities, including CLL, Afib, dementia, CKD 4 and at high risk of poor outcome. Treatment plan discussed with RN, ED provider and RT. 65 minutes of Critical care time spent including but not limited to patients assessment, review of her past hx, care co ordination, forming treatment plan.
[2024-02-29 13:34] LABS: Lactate/Lactic Acid 2.8 mmol/L (0.4-2.0)
[2024-02-29 13:42] LABS: pH ABG 7.417 (7.350-7.450)
[2024-02-29 13:43] LABS: Allen Test POSITIVE (POSITIVE); Base Excess ABG -4.6 mmol/L (-2.0-2.0); Liters per Minute 4L; O2 Mode NC; Oxygen Saturation ABG 90.3 %; PO2 ABG 64.3 mmHg (80.0-100.0); Puncture Site R RADIAL
[2024-02-29] MEDS: GUAIFENESIN 600 MG TAB.ER.12H PO ×2 (14:10→21:37)
[2024-02-29] MEDS: 0.9 % SODIUM CHLORIDE 1,000 ML 1000 ML IV (14:10)
[2024-02-29] MEDS: LACTATED RINGER'S SOLUTION 1,000 ML 125 ML IV (15:26)
[2024-02-29] MEDS: LEVOFLOXACIN IN DEXTROSE 5 % 750 MG/150 ML IV.SOLN 100 MG IV (15:26)
[2024-02-29 16:15] LABS: Lactate/Lactic Acid 3.6 mmol/L (0.4-2.0)
[2024-02-29] MEDS: ACETAMINOPHEN 325 MG TABLET 650 MG PO (16:24)
[2024-02-29] MEDS: PREDNISONE 20 MG TABLET 40 MG PO (16:36)
[2024-02-29 17:03] LABS: Anion Gap 15.8; BUN Creatinine Ratio 16.5; Calcium 8.3 mg/dL (8.5-10.1); Carbon Dioxide 22.5 mmol/L (21.0-32.0); Chloride 105 mmol/L (98-107); Estimated GFR (African America 31 (>=60); Estimated GFR (Non-African Ame 25 (>=60); Glucose 162 mg/dL (74-106); Potassium 4.3 mmol/L (3.5-5.1); Sodium 139 mmol/L (136-145)
[2024-02-29 17:06] LABS: Ammonia 29 umol/L (11-32)
[2024-02-29 19:28] LABS: Lactate/Lactic Acid 3.2 mmol/L (0.4-2.0)
--- NOTE | 2024-02-29 20:49 | PC.NURSE ---
IV infiltrated. Right arm edematous and hard. IV removed and right arm elevated with warm compress.
[2024-02-29] MEDS: ENOXAPARIN SODIUM 30 MG/0.3 ML SYRINGE SUBQ (21:37)
[2024-02-29] MEDS: METOPROLOL TARTRATE 25 MG TABLET PO (21:37)
[2024-03-01] VITALS (21 sets, daily range): BP systolic 110–156; BP diastolic 56–89; PULSE 63–94; TEMP 36.1–36.8; O2SAT 90–98
[2024-03-01] MEDS: LACTATED RINGER'S SOLUTION 1,000 ML 125 ML IV (00:05)
[2024-03-01 05:13] LABS: Basophils Absolute Auto 0.1 10^3/uL (0.0-0.1); Basophils Percent Auto 0.4 % (0.2-2.0); Hemoglobin 13.6 g/dL (12.0-16.0); Immature Granulocytes Abs Auto 1.37 10^3/uL (0.00-0.03); Immature Granulocytes Pct Auto 4.7 % (0.0-0.5); Lymphocytes Absolute Auto 0.5 10^3/uL (1.2-3.8); Lymphocytes Percent Auto 1.8 % (20.5-60.0); Mean Corpuscular HGB Conc 30.2 g/dL (29.9-35.2); Mean Corpuscular Volume 85.9 fL (81.0-99.0); Mean Platelet Volume 10.5 fL (9.5-13.5); Monocytes Absolute Auto 0.3 10^3/uL (0.3-0.8); Monocytes Percent Auto 1.1 % (1.7-12.0); Neutrophils Absolute Auto 26.6 10^3/uL (1.4-6.5); Platelet Count 279 10^3/uL (150-450); Red Blood Count 5.24 10^6/uL (4.20-5.40)
[2024-03-01 05:45] LABS: Alanine Aminotransferase 44 U/L (14-59); Albumin Globulin Ratio 0.7; Albumin Level 2.6 g/dL (3.4-5.0); Alkaline Phosphatase 73 U/L (46-116); Anion Gap 18.1; Aspartate Amino Transferase 18 U/L (15-37); Bilirubin Total 0.3 mg/dL (0.2-1.0); Calcium 8.3 mg/dL (8.5-10.1); Carbon Dioxide 19.4 mmol/L (21.0-32.0); Chloride 106 mmol/L (98-107); Estimated GFR (African America 30 (>=60); Estimated GFR (Non-African Ame 24 (>=60); Globulin 3.9 g/dL; Glucose 240 mg/dL (74-106); Potassium 4.5 mmol/L (3.5-5.1); Sodium 139 mmol/L (136-145); Total Protein 6.5 g/dL (6.4-8.2)
[2024-03-01 08:43] LABS: Lactate/Lactic Acid 2.1 mmol/L (0.4-2.0)
[2024-03-01] MEDS: GUAIFENESIN 600 MG TAB.ER.12H PO ×2 (08:48→21:35)
[2024-03-01] MEDS: ASPIRIN 81 MG TABLET.DR PO (08:48)
[2024-03-01] MEDS: METOPROLOL TARTRATE 25 MG TABLET PO ×2 (08:48→21:35)
[2024-03-01] MEDS: AMIODARONE HCL 200 MG TABLET PO (08:48)
[2024-03-01] MEDS: ALLOPURINOL 100 MG TABLET PO (08:48)
[2024-03-01] MEDS: PREDNISONE 20 MG TABLET 40 MG PO (08:48)
[2024-03-01] MEDS: IPRATROPIUM/ALBUTEROL SULFATE 3 ML AMPUL.NEB IH ×3 (09:15→20:21)
[2024-03-01] MEDS: CEFTRIAXONE 1,000 MG in 0.9 % SODIUM CHLORIDE 50 ML 100 MG IV (10:23)
[2024-03-01] MEDS: 0.9 % SODIUM CHLORIDE 250 ML 10 ML IV (10:23)
--- NOTE | 2024-03-01 10:32 | P.IMPN_ITS ---
Progress Note: A&P Assessment and Plan (1) Sepsis: Assessment and Plan: Resolved. Stable hemodynamics. C/w Levaquin/Rocephin. F/u blood cx. Qualifiers: Sepsis acute organ dysfunction status: with acute organ dysfunction Sepsis type: sepsis due to unspecified organism Severe sepsis acute organ dysfunction type: unspecified Severe sepsis shock status: without septic shock Qualified Code(s): A41.9 - Sepsis, unspecified organism; R65.20 - Severe sepsis without septic shock (2) Rhinovirus infection: Assessment and Plan: Supportive care. Monitor. (3) Acute respiratory failure with hypoxia: Assessment and Plan: On RA now. Monitor. C/w abx, duonebs and Prednisone still has mild JIMÉNEZ. Otherwise no resp symptoms or complaints. (4) Pneumonia: Assessment and Plan: On IV levaquin/rocephin. Suspect superimposed bacterial PNA. Doing better from resp pov. Qualifiers: Laterality: left Lung location: lower lobe of lung Pneumonia type: due to unspecified organism Qualified Code(s): J18.9 - Pneumonia, unspecified organism (5) Altered mental status: Assessment and Plan: Back to her baseline. AAO3. Answering questions appropriately. Qualifiers: Altered mental status type: somnolence Qualified Code(s): R40.0 - Somnolence (6) UTI (urinary tract infection): Assessment and Plan: Abnormal UA. Denies any urinary complaints. Unclear if she truly has UTI or not. However, she is on abx for pna also that would adequately cover UTI. Qualifiers: Urinary tract infection type: acute cystitis Hematuria presence: with hematuria Qualified Code(s): N30.01 - Acute cystitis with hematuria (7) Lactic acidosis: Assessment and Plan: Improved with hydration (8) CKD (chronic kidney disease) stage 4, GFR 15-29 ml/min: Assessment and Plan: Stable. Monitor. (9) Afib: Assessment and Plan: On amidarone and Eliquis. Qualifiers: Atrial fibrillation type: paroxysmal Qualified Code(s): I48.0 - Paroxysmal atrial fibrillation (10) CLL (chronic lymphocytic leukemia): Assessment and Plan: In remission. Monitor. (11) Alzheimer's dementia: Assessment and Plan: Mild intermittent confusion and difficulty with memory. She is at her baseline now Qualifiers: Alzheimer's disease onset: late onset Dementia severity: unspecified severity Dementia behavioral or psychological symptom: unspecified whether behavioral, psychotic, or mood disturbance or anxiety Qualified Code(s): G30.1 - Alzheimer's disease with late onset; F02.80 - Dementia in other diseases classified elsewhere, unspecified severity, without behavioral disturbance, psychotic disturbance, mood disturbance, and anxiety (12) HX: breast cancer: Assessment and Plan: On letrozole. Plan Given her age, frailty, underlying immunocompromised status, hx of dementia and continued JIMÉNEZ - will c/w inpatient monitoring and treatment. Continue to reassess and monitor. D/c back to longterm once medically stable. Internal Medicine - PN: Subj Subjective Interval history: Seen and examined. Doing much better today. She is not confused anymore. Awake and alert. She is still quite weak and experiencing mild JIMÉNEZ. No overnight events. Exam Constitutional Vital Signs, click to edit/add: Last Vital Signs Temp 97.0 F L 03/01/24 08:30 Pulse 90 03/01/24 09:53 Resp 79 H 03/01/24 09:17 BP 152/87 H 03/01/24 08:30 Pulse Ox 94 L 03/01/24 09:17 O2 Del Method Room Air 03/01/24 09:17 O2 Flow Rate 2 03/01/24 00:03 Documenting provider has reviewed patient's vital signs: yes Common normals: no apparent distress and oriented x3 General appearance: cooperative Respiratory Common normals: normal respiratory effort and clear to auscultation bilaterally Effort & inspection: able to speak in complete sentences Auscultation: clear to auscultation bilaterally Cardio Common normals: regular rate, S1 normal heart sound and S2 normal heart sound Rate: regular rate Heart sounds: S1 normal and S2 normal GI Common normals: Normal to inspection, nondistended, normoactive bowel sounds present, soft to palpation, non-tender and no hepatosplenomegaly Palpation: soft and no hepatosplenomegaly Extremity Common normals: no clubbing, cyanosis or edema Neuro Common normals: oriented x3, moves all extremities and no focal motor deficits Psych Common normals: mental status grossly normal, denies hallucinations, denies homicidal ideation and denies suicidal ideation Internal Medicine - PN: Obj Da Labs Labs: Laboratory Results - last 24 hr 02/29/24 02/29/24 02/29/24 09:53 09:57 09:59 WBC RBC Hgb Hct MCV MCH MCHC RDW Plt Count MPV Neut % (Auto) Lymph % (Auto) Patrick % (Auto) Eos % (Auto) Baso % (Auto) Neut # (Auto) Lymph # (Auto) Patrick # (Auto) Eos # (Auto) Baso # (Auto) Abs Immat Gran (auto) Seg Neuts % (Manual) 83.0 Band Neutrophils % 10.0 H Lymphocytes % (Manual) 2.0 L Monocytes % (Manual) 4.0 Eosinophils % (Manual) 0.0 L Basophils % (Manual) 0.0 L Metamyelocytes % 1.0 Imm/Tot Granulo (auto) Neutrophils # (Manual) 23.24 H Band Neutrophils # 2.8 H Lymphocytes # (Manual) 0.56 L Monocytes # (Manual) 1.12 H Eosinophils # (Manual) 0.00 Basophils # (Manual) 0.00 Metamyelocytes # 0.28 Puncture Site ABG pH ABG pCO2 ABG pO2 ABG HCO3 ABG O2 Saturation ABG Base Excess Ian Test O2 Liters/Min Sodium Potassium Chloride Carbon Dioxide Anion Gap BUN Creatinine Est GFR ( Amer) Est GFR (Non-Af Amer) BUN/Creatinine Ratio Glucose Lactate 2.6 H* Calcium Total Bilirubin AST ALT Alkaline Phosphatase Ammonia Total Protein Albumin Globulin Albumin/Globulin Ratio Procalcitonin 0.46 Urine RBC 10-20 A Urine WBC 75-100 A Ur Squamous Epith Cells None seen Urine Crystals None seen Urine Bacteria Moderate A Urine Casts None seen Urine Mucus None seen Ur Culture Indicated? Yes Adenovirus (PCR) Not detected C. pneumoniae DNA (PCR) Not detected Coronavirus Type OC43 Not detected Coronavirus Type HKU1 Not detected Coronavirus Type 229E Not detected Coronavirus Type NL63 Not detected Human Metapneumovir PCR Not detected M. pneumoniae (PCR) Not detected Parainfluenza PCR Not detected Parainfluenza 2 (PCR) Not detected Parainfluenza 3 (PCR) Not detected Parainfluenza 4 (PCR) Not detected RSV (RT-PCR) Not detected Entero/Rhino (PCR) Detected A SARS-CoV-2 (PCR) Not detected Bordetella pertussis (PCR) Not detected B parapertussis DNA PCR Not detected Influenza Type A (PCR) Not detected Influenza Type B (PCR) Not detected 02/29/24 02/29/24 02/29/24 13:05 13:35 15:43 WBC RBC Hgb Hct MCV MCH MCHC RDW Plt Count MPV Neut % (Auto) Lymph % (Auto) Patrick % (Auto) Eos % (Auto) Baso % (Auto) Neut # (Auto) Lymph # (Auto) Patrick # (Auto) Eos # (Auto) Baso # (Auto) Abs Immat Gran (auto) Seg Neuts % (Manual) Band Neutrophils % Lymphocytes % (Manual) Monocytes % (Manual) Eosinophils % (Manual) Basophils % (Manual) Metamyelocytes % Imm/Tot Granulo (auto) Neutrophils # (Manual) Band Neutrophils # Lymphocytes # (Manual) Monocytes # (Manual) Eosinophils # (Manual) Basophils # (Manual) Metamyelocytes # Puncture Site R radial ABG pH 7.417 ABG pCO2 31.0 L ABG pO2 64.3 L ABG HCO3 20.0 L ABG O2 Saturation 90.3 ABG Base Excess -4.6 L Ina Test Positive O2 Liters/Min 4l Sodium Potassium Chloride Carbon Dioxide Anion Gap BUN Creatinine Est GFR ( Amer) Est GFR (Non-Af Amer) BUN/Creatinine Ratio Glucose Lactate 2.8 H* 3.6 H* Calcium Total Bilirubin AST ALT Alkaline Phosphatase Ammonia Total Protein Albumin Globulin Albumin/Globulin Ratio Procalcitonin Urine RBC Urine WBC Ur Squamous Epith Cells Urine Crystals Urine Bacteria Urine Casts Urine Mucus Ur Culture Indicated? Adenovirus (PCR) C. pneumoniae DNA (PCR) Coronavirus Type OC43 Coronavirus Type HKU1 Coronavirus Type 229E Coronavirus Type NL63 Human Metapneumovir PCR M. pneumoniae (PCR) Parainfluenza PCR Parainfluenza 2 (PCR) Parainfluenza 3 (PCR) Parainfluenza 4 (PCR) RSV (RT-PCR) Entero/Rhino (PCR) SARS-CoV-2 (PCR) Bordetella pertussis (PCR) B parapertussis DNA PCR Influenza Type A (PCR) Influenza Type B (PCR) 02/29/24 02/29/24 03/01/24 16:44 18:55 04:39 WBC 29.0 H RBC 5.24 Hgb 13.6 Hct 45.0 MCV 85.9 MCH 26.0 L MCHC 30.2 RDW 18.0 H Plt Count 279 MPV 10.5 Neut % (Auto) 92.0 H Lymph % (Auto) 1.8 L Patrick % (Auto) 1.1 L Eos % (Auto) 0.0 L Baso % (Auto) 0.4 Neut # (Auto) 26.6 H Lymph # (Auto) 0.5 L Patrick # (Auto) 0.3 Eos # (Auto) 0.0 Baso # (Auto) 0.1 Abs Immat Gran (auto) 1.37 H Seg Neuts % (Manual) Band Neutrophils % Lymphocytes % (Manual) Monocytes % (Manual) Eosinophils % (Manual) Basophils % (Manual) Metamyelocytes % Imm/Tot Granulo (auto) 4.7 H Neutrophils # (Manual) Band Neutrophils # Lymphocytes # (Manual) Monocytes # (Manual) Eosinophils # (Manual) Basophils # (Manual) Metamyelocytes # Puncture Site ABG pH ABG pCO2 ABG pO2 ABG HCO3 ABG O2 Saturation ABG Base Excess Ian Test O2 Liters/Min Sodium 139 139 Potassium 4.3 4.5 Chloride 105 106 Carbon Dioxide 22.5 19.4 L Anion Gap 15.8 18.1 BUN 31.0 H 37.0 H Creatinine 1.88 H 1.95 H Est GFR ( Amer) 31 L 30 L Est GFR (Non-Af Amer) 25 L 24 L BUN/Creatinine Ratio 16.5 19.0 Glucose 162 H 240 H Lactate 3.2 H* 4.0 H* Calcium 8.3 L 8.3 L Total Bilirubin 0.3 AST 18 ALT 44 Alkaline Phosphatase 73 Ammonia 29 Total Protein 6.5 Albumin 2.6 L Globulin 3.9 Albumin/Globulin Ratio 0.7 Procalcitonin Urine RBC Urine WBC Ur Squamous Epith Cells Urine Crystals Urine Bacteria Urine Casts Urine Mucus Ur Culture Indicated? Adenovirus (PCR) C. pneumoniae DNA (PCR) Coronavirus Type OC43 Coronavirus Type HKU1 Coronavirus Type 229E Coronavirus Type NL63 Human Metapneumovir PCR M. pneumoniae (PCR) Parainfluenza PCR Parainfluenza 2 (PCR) Parainfluenza 3 (PCR) Parainfluenza 4 (PCR) RSV (RT-PCR) Entero/Rhino (PCR) SARS-CoV-2 (PCR) Bordetella pertussis (PCR) B parapertussis DNA PCR Influenza Type A (PCR) Influenza Type B (PCR) 03/01/24 08:15 WBC RBC Hgb Hct MCV MCH MCHC RDW Plt Count MPV Neut % (Auto) Lymph % (Auto) Patrick % (Auto) Eos % (Auto) Baso % (Auto) Neut # (Auto) Lymph # (Auto) Patrick # (Auto) Eos # (Auto) Baso # (Auto) Abs Immat Gran (auto) Seg Neuts % (Manual) Band Neutrophils % Lymphocytes % (Manual) Monocytes % (Manual) Eosinophils % (Manual) Basophils % (Manual) Metamyelocytes % Imm/Tot Granulo (auto) Neutrophils # (Manual) Band Neutrophils # Lymphocytes # (Manual) Monocytes # (Manual) Eosinophils # (Manual) Basophils # (Manual) Metamyelocytes # Puncture Site ABG pH ABG pCO2 ABG pO2 ABG HCO3 ABG O2 Saturation ABG Base Excess Ian Test O2 Liters/Min Sodium Potassium Chloride Carbon Dioxide Anion Gap BUN Creatinine Est GFR ( Amer) Est GFR (Non-Af Amer) BUN/Creatinine Ratio Glucose Lactate 2.1 H Calcium Total Bilirubin AST ALT Alkaline Phosphatase Ammonia Total Protein Albumin Globulin Albumin/Globulin Ratio Procalcitonin Urine RBC Urine WBC Ur Squamous Epith Cells Urine Crystals Urine Bacteria Urine Casts Urine Mucus Ur Culture Indicated? Adenovirus (PCR) C. pneumoniae DNA (PCR) Coronavirus Type OC43 Coronavirus Type HKU1 Coronavirus Type 229E Coronavirus Type NL63 Human Metapneumovir PCR M. pneumoniae (PCR) Parainfluenza PCR Parainfluenza 2 (PCR) Parainfluenza 3 (PCR) Parainfluenza 4 (PCR) RSV (RT-PCR) Entero/Rhino (PCR) SARS-CoV-2 (PCR) Bordetella pertussis (PCR) B parapertussis DNA PCR Influenza Type A (PCR) Influenza Type B (PCR) Urinary Catheter Management Urinary Catheter Management Urethral: Cath placed during this visit: yes Urethral indwelling: Yes Reason for continuing: decision to DC catheter Insertion date: 02/29/24 Insertion time: 16:30
[2024-03-01] MEDS: ENOXAPARIN SODIUM 30 MG/0.3 ML SYRINGE SUBQ (21:35)
[2024-03-02] VITALS (10 sets, daily range): BP systolic 164–171; BP diastolic 81–84; PULSE 59–75; TEMP 36.1–36.3; O2SAT 92–96; BMI 25.9
[2024-03-02] MEDS: HYDRALAZINE HCL 20 MG/ML VIAL 10 MG IVP (04:33)
[2024-03-02 05:21] LABS: Basophils Absolute Auto 0.2 10^3/uL (0.0-0.1); Basophils Percent Auto 0.5 % (0.2-2.0); Hematocrit 44.6 % (36.0-48.0); Immature Granulocytes Abs Auto 1.43 10^3/uL (0.00-0.03); Immature Granulocytes Pct Auto 4.1 % (0.0-0.5); Lymphocytes Absolute Auto 0.9 10^3/uL (1.2-3.8); Lymphocytes Percent Auto 2.5 % (20.5-60.0); Mean Corpuscular HGB Conc 31.4 g/dL (29.9-35.2); Mean Corpuscular Hemoglobin 26.6 pg (26.7-34.0); Mean Corpuscular Volume 84.8 fL (81.0-99.0); Mean Platelet Volume 10.4 fL (9.5-13.5); Monocytes Absolute Auto 0.6 10^3/uL (0.3-0.8); Monocytes Percent Auto 1.8 % (1.7-12.0); Neutrophils Absolute Auto 31.5 10^3/uL (1.4-6.5); Neutrophils Percent Auto 91.1 % (43.0-75.0); Platelet Count 345 10^3/uL (150-450); Red Blood Count 5.26 10^6/uL (4.20-5.40); Red Cell Distribution Width 18.6 % (11.0-15.0)
[2024-03-02 05:34] LABS: White Blood Count 34.5 10^3/uL (4.0-11.0)
[2024-03-02 05:42] LABS: Alanine Aminotransferase 36 U/L (14-59); Albumin Globulin Ratio 0.7; Albumin Level 2.7 g/dL (3.4-5.0); Alkaline Phosphatase 73 U/L (46-116); Anion Gap 14.7; Aspartate Amino Transferase 14 U/L (15-37); BUN Creatinine Ratio 23.9; Bilirubin Total 0.3 mg/dL (0.2-1.0); Calcium 8.2 mg/dL (8.5-10.1); Carbon Dioxide 21.9 mmol/L (21.0-32.0); Chloride 104 mmol/L (98-107); Estimated GFR (African America 36 (>=60); Estimated GFR (Non-African Ame 30 (>=60); Globulin 3.9 g/dL; Glucose 193 mg/dL (74-106); Potassium 4.6 mmol/L (3.5-5.1); Sodium 136 mmol/L (136-145); Total Protein 6.6 g/dL (6.4-8.2)
--- NOTE | 2024-03-02 06:00 | PC.NURSE ---
Patient has not slept throughout entire shift. No complaints of pain and patient turned self through out the night.
--- NOTE | 2024-03-02 07:05 | CM.NOTE ---
Faxed updates to [facility], Physician notes and Case Management referral bundle.
[2024-03-02] MEDS: ASPIRIN 81 MG TABLET.DR PO (08:59)
[2024-03-02] MEDS: ALLOPURINOL 100 MG TABLET PO (08:59)
[2024-03-02] MEDS: GUAIFENESIN 600 MG TAB.ER.12H PO (08:59)
[2024-03-02] MEDS: METOPROLOL TARTRATE 25 MG TABLET PO (08:59)
[2024-03-02] MEDS: AMIODARONE HCL 200 MG TABLET PO (08:59)
[2024-03-02] MEDS: PREDNISONE 20 MG TABLET 40 MG PO (09:00)
[2024-03-02] MEDS: IPRATROPIUM/ALBUTEROL SULFATE 3 ML AMPUL.NEB IH (09:45)
--- NOTE | 2024-03-02 09:54 | PC.NURSE ---
[id number] Chaney catheter removed. No complications. Patient tolerated well. Rhiannon care done after removal.
[2024-03-02] MEDS: CEFTRIAXONE 1,000 MG in 0.9 % SODIUM CHLORIDE 50 ML 100 MG IV (10:35)
[2024-03-02] MEDS: 0.9 % SODIUM CHLORIDE 250 ML 10 ML IV (10:41)
--- NOTE | 2024-03-02 10:49 | P.DS_ITS ---
<Statement entered by Shaikh Nolberto MD - 03/02/24 15:14> This documentation has been reviewed and approved. Patient seen and examined. Case discussed with Vicky. Agree with clinical documentation, treatment plan. Patient doing well today. No active complaints to offer. Denies cough, SOB. No overnight events. Exam: Comfortable, was ambulating with walker. CTA b/l, no wheezing or rhonchi Normal S1,S2. No murmurs Assessment and Plan Sepsis sec to E coli UTI sec to E coli Rhinovirus infection Pneumonia. Dementia Altered mental status Lactic acidosis CKD 3 Stable for discharge on oral Levaquin. Patient denies any resp complaints. Mental status back to baseline. Stable hemodynamics. Follow up with PCP in 1 week. Will go back to senior care. DS: Providers Provider Date of admission: 02/29/24 11:51 Primary care physician: NESTOR SANDOVAL Consults: 02/29/24 13:09 Occupational Therapy Eval and Treat Routine Reason for consultation: Ambulatory dysfunction/weakness Physical Therapy Eval and Treat Routine Reason for consultation: Ambulatory dysfunction/weakness Discharging clinician: Vicky Clemens DS: Diagnosis Discharge Diagnosis (1) Sepsis: Qualifiers: Sepsis acute organ dysfunction status: with acute organ dysfunction Sepsis type: sepsis due to unspecified organism Severe sepsis acute organ dysfunction type: unspecified Severe sepsis shock status: without septic shock Qualified Code(s): A41.9 - Sepsis, unspecified organism; R65.20 - Severe sepsis without septic shock (2) Rhinovirus infection: (3) Acute respiratory failure with hypoxia: (4) Pneumonia: Qualifiers: Laterality: left Lung location: lower lobe of lung Pneumonia type: due to unspecified organism Qualified Code(s): J18.9 - Pneumonia, unspecified organism (5) Altered mental status: Qualifiers: Altered mental status type: somnolence Qualified Code(s): R40.0 - Somnolence (6) UTI (urinary tract infection): Qualifiers: Urinary tract infection type: acute cystitis Hematuria presence: with hematuria Qualified Code(s): N30.01 - Acute cystitis with hematuria (7) Lactic acidosis: (8) CKD (chronic kidney disease) stage 4, GFR 15-29 ml/min: (9) Afib: Qualifiers: Atrial fibrillation type: paroxysmal Qualified Code(s): I48.0 - Paroxysmal atrial fibrillation (10) CLL (chronic lymphocytic leukemia): (11) Alzheimer's dementia: Qualifiers: Alzheimer's disease onset: late onset Dementia severity: unspecified severity Dementia behavioral or psychological symptom: unspecified whether behavioral, psychotic, or mood disturbance or anxiety Qualified Code(s): G30.1 - Alzheimer's disease with late onset; F02.80 - Dementia in other diseases classified elsewhere, unspecified severity, without behavioral disturbance, psychotic disturbance, mood disturbance, and anxiety (12) HX: breast cancer: DS: Summary Hospital Course Hospital Course: The patient was admitted with sepsis from pneumonia and a UTI with associated acute respiratory failure with hypoxia, acute metabolic encephalopathy (AMS), and lactic acidosis. She was also positive for rhinovirus on admission. She was treated with IVPB Levaquin and Rocephin, oral steroids, and IV fluids. Her lactic acidosis, altered mentation, hypoxia, and sepsis resolved with these measures. She had persistent leukocytosis likely due to her baseline CLL, exacerbated by steroid administration. As the patient's mentation is back to baseline, she is afebrile x 48 hours, and no longer requires O2 supplementation, she is being discharged back to her home long-term care facility in stable condition. She has been prescribed a 7-day course of Levaquin, and a prednisone taper. She should follow-up with her PCP/LTC provider in 3 to 5 days. Time Spent with Patient Time attestation: Total time spent providing and/or coordinating discharge services: Time spent: greater than 30 minutes Specific discharge activities: Physical exam, discussion of discharge plan, questions answered. Exam Constitutional Vital Signs, click to edit/add: Last Vital Signs Temp 97 F L 03/02/24 08:00 Pulse 70 03/02/24 10:00 Resp 18 03/02/24 08:00 BP 164/84 H 03/02/24 08:00 Pulse Ox 96 03/02/24 09:46 O2 Del Method Room Air 03/02/24 09:46 O2 Flow Rate 2 03/01/24 00:03 Common normals: no apparent distress and alert General appearance: cooperative Orientation/consciousness: Yes awake, Yes oriented to person, Yes oriented to place and Yes confused (Pleasantly confused at times (baseline)); not oriented to time [facility] Common normals: normocephalic and head/scalp atraumatic Eye Common normals: PERRL, EOMs intact bilaterally, conjunctivae normal and no scleral icterus Neck & C-Spine Common normals: no JVD Respiratory Common normals: normal respiratory effort, no use of accessory muscles and clear to auscultation bilaterally Effort & inspection: able to speak in complete sentences and symmetric chest movement Cardio Common normals: no JVD, regular rate, regular rhythm, S1 normal heart sound, S2 normal heart sound, no murmurs and peripheral pulses 2+ throughout GI Common normals: Normal to inspection, nondistended, normoactive bowel sounds present, soft to palpation and non-tender Bladder/kidney exam: bladder normal to palpation Extremity Common normals: normal to inspection, full ROM, normal capillary refill and no pedal edema General: no clubbing and no cyanosis Neuro Common normals: moves all extremities, no focal motor deficits and no sensory deficits noted Speech: speech normal Psych Common normals: mental status grossly normal and activity/motor behavior normal DS: Data Data Completed and Pending Labs on day of discharge: Labs from last 24 hours 03/02/24 04:47 WBC 34.5 H* RBC 5.26 Hgb 14.0 Hct 44.6 MCV 84.8 MCH 26.6 L MCHC 31.4 RDW 18.6 H Plt Count 345 MPV 10.4 Neut % (Auto) 91.1 H Lymph % (Auto) 2.5 L Union % (Auto) 1.8 Eos % (Auto) 0.0 L Baso % (Auto) 0.5 Neut # (Auto) 31.5 H Lymph # (Auto) 0.9 L Union # (Auto) 0.6 Eos # (Auto) 0.0 Baso # (Auto) 0.2 H Abs Immat Gran (auto) 1.43 H Imm/Tot Granulo (auto) 4.1 H Sodium 136 Potassium 4.6 Chloride 104 Carbon Dioxide 21.9 Anion Gap 14.7 BUN 39.0 H Creatinine 1.63 H Est GFR ( Amer) 36 L Est GFR (Non-Af Amer) 30 L BUN/Creatinine Ratio 23.9 Glucose 193 H Calcium 8.2 L Total Bilirubin 0.3 AST 14 L ALT 36 Alkaline Phosphatase 73 Total Protein 6.6 Albumin 2.7 L Globulin 3.9 Albumin/Globulin Ratio 0.7 Procalcitonin 0.30 Imaging Chest x-ray: Radiologist's impression: IMPRESSION: Mild left lower lung airspace disease versus atelectasis. CT scan - head: Radiologist's impression: IMPRESSION: No acute intracranial process is noted. Discharge Plan Discharge Disposition: er [facility] Discharge Medications: New prednisone 10 mg tablet See Rx Instructions .ROUTE .COMPLEX 12 Days Qty: 42 0RF Rx Instructions: 6 tabs daily x 2 days, then 5 tabs daily x 2 days, then 4 tabs daily x 2 days, then 3 tabs daily x 2 days, then 2 tabs daily x 2 days, then 1 tab daily x 2 days, then STOP levofloxacin 750 mg tablet 750 mg PO DAILY 7 Days Qty: 7 0RF Continued allopurinol 100 mg tablet 100 mg PO DAILY amiodarone 200 mg tablet 200 mg PO DAILY letrozole 2.5 mg tablet 2.5 mg PO BEDTIME metoprolol tartrate 25 mg tablet 25 mg PO Q12H acetaminophen 325 mg tablet 650 mg PO Q4H PRN (Reason: fever or pain) alum-mag hydroxide-simeth [Advanced Antacid-Antigas] 200-200-20 mg/5 mL suspension 15 ml PO Q4H PRN (Reason: indigestion) albuterol sulfate 2.5 mg /3 mL (0.083 %) solution for nebulization 2.5 mg inhalation Q6H PRN (Reason: shortness of breath) aspirin [Adult Aspirin Regimen] 81 mg tablet,delayed release (DR/EC) 81 mg PO DAILY calcium carbonate [Calcium 600] 600 mg calcium (1,500 mg) tablet 600 mg PO TID cholecalciferol (vitamin D3) [Vitamin D3] 25 mcg (1,000 unit) tablet 1,000 unit PO DAILY multivitamin Tablet 1 tab PO BID polyethylene glycol 3350 [Miralax] 17 gram powder in packet 17 g PO DAILY PRN (Reason: constipation) sennosides-docusate sodium [Senna with Docusate Sodium] 8.6-50 mg tablet 1 tab-cap PO BID PRN (Reason: constipation) tramadol 50 mg tablet 50 mg PO Q6H PRN (Reason: pain) ascorbic acid (vitamin C) [Vitamin C] 500 mg tablet 500 mg PO DAILY Print Language: Georgian Forms: Portal Instructions
--- NOTE | 2024-03-02 10:58 | CM.NOTE ---
Rounds made with Dr. Arvizu, pt will discharge back to [facility]. Updated Ashley from [facility].
--- NOTE | 2024-03-02 11:23 | CM.NOTE ---
Faxed discharge summary and med list to [facility], notified pt's sister Na at [facility] of transport time Noon with [facility] today.
--- NOTE | 2024-03-02 13:00 | CM.NOTE ---
Important Message From [employer] discussed with pt, pt verbalizes understanding and signs paper. Original given to pt and copy placed in pt's chart.
--- OUTSIDE RECORDS SUMMARY | 2024-03-04 08:28 | XMS_ITS | CCD ---
Author Organization [facility] Care Team Providers Care [place] Name Role Phone ARA ROBB Attending Unavailable PETRA ARAIZA Attending Unavailable SELF, SELF Referring Unavailable [facility] Referring Unavailable PETRA ARAIZA Attending Unavailable PETRA ARAIZA Referring Unavailable EPTRA ARAIZA Attending Unavailable LOU RANDHAWA Admitting Unavailable [...] JOSE CARMICHAELINDA C Attending Unavailable JESSICA CARMICHAELA [employer] Consulting Unavailable AMOL, TRACI C Admitting Unavailable VÍCTOR, BECK Primary Care Unavailable AMOL, TRACI C Admitting Unavailable TRACI CARMICHAEL C Attending Unavailable NATALEE ., DR AVERY Admitting Unavailable HOY ., DR AVERY Attending Unavailable HOSailaja ., DR AEVRY Consulting Unavailable QUINCY, DR ROGE Shoemaker Consulting [...] Unavailable QUINCY, DR ROGE Shoemaker Consulting Unavailable RIEVRA, DR JORGE Lopez Consulting Unavailable NADERER, DR [...] (2 sources) Ciprofloxacin Drug Allergy 03-23-2022 [facility] Repository (2 sources) Dexamethasone; Translations: [DEXAMETHASONE] Drug Allergy 06-27-2023 [facility] (2 sources) Erythromycin; Translations: [ERYTHROMYCIN BASE] Drug Allergy 06-27-2023 [facility] (2 sources) Neomycin; Translations: [NEOMYCIN SULFATE] Drug Allergy 06-27-2023 [facility] (2 sources) Polymyxin B; Translations: [POLYMYXIN B] Drug Allergy 06-27-2023 [facility] (2 sources) Tobramycin; Translations: [TOBRAMYCIN] Drug Allergy 06-27-2023 [facility] Medications Current Medications Medication Drug Class(es) [...] 30 days. 0 Active polyethylene glycol 3350 04507 mg powder for oral solution (1 source) Osmotic Laxative polyethylene gl ycol (GLYCOLAX) 17 gram packet Take 17 g by mouth daily as needed (constipation). 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] Onset: 02-08-2023 Episodic Other aftercare (1 source) meterman (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 of aspirin; Translations: [LONG-TERM CURRENT USE OF ASPIRIN] Onset: 03-06-2023 Episodic Other aftercare (1 source) correction (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 of non-steroidal anti-inflammatories (NSAID); Translations: [LONG-TERM USE NSAID] Onset: 02-08-2023 Episodic Other connective [...] Onset: 04-05-2022 Episodic Other aftercare (1 source) correction (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 of insulin; Translations: [LONG-TERM CURRENT USE OF INSULIN] Onset: 04-05-2022 Episodic Other aftercare (1 source) correction (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 of anticoagulants; Translations: [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 Office Visiton 09-20-2023 Follow-up visit [id number] Jennifer Tafoya leo Love 1940 F Date Provider Department Center 09/20/2023 MARY LOU FELIZ [facility] Family History Problem Relation Age of Onset Diabetes Sister Diabetes Brother Diabetes Maternal Grandfather Family Status - Relation Status Age at Sister Brother Maternal Grandfather Level of Service:73080 [place] OFFICE/OUTPATIENT ESTABLISHED MOD MDM 30-39 MIN Reason for Visit and Comments: Follow-up [197631] Normal [facility] CBC W MANUAL DIFFon 03-08-20 23 ANISOCYTOSIS 1+ Normal [facility] Comment on above: Performed By: #### C BCJERSON ####[facility] [address]knfss[address] [place] [address]Dr. Bhavani Barragan ATYPICAL LYMPH # Normal [facility] Comment on above: Performed By: #### C BCMAN ####[facility] Ghrbfbqgns[address] [place] [address]Dr. Bhavani Barragan ATYPICAL LYMPH % Normal [facility] Comment on above: Performed By: #### C BCMAN ####[facility] Hbhrnaaldo42[address] [place] [address]Dr. Bhavani Barragan BAND # 1.3 103/ul Critically high 0.0-0.3 The [facility] Comment on above: Performed By: #### C BCMAN ####[facility] Kzejqdljye6[address] [place] [address]Dr. Bhavani Barragan BAND % 4 % Normal 0-5 [facility] Comment on above: Performed By: #### C BCMAN ####[facility] Zyktxbqdpt1284 [place] [address]Dr. Bhavani Barragan BASOM # 0.00 103/ul Normal 0.00-0.10 [facility] Comment on above: Performed By: #### C BCJERSON ####[facility] Dbhbjfuura2086 [place] [address]Dr. Bhavani Barragan BASOM % 0.0 % Critically low 0.2-2.0 The [facility] Comment on above: Performed By: #### C BCJERSON ####[facility] Ytujirhahj[address] [place] [address]Dr. Bhavani Barragan BLAST # Normal [facility] Comment on above: Performed By: #### C BCJERSON ####[facility] Jnubedfsex40[address] [place] [address]Dr. Bhavani Barragan BLAST % Normal [facility] Comment on above: Performed By: #### C OMID ####[facility] Idbnyqvsbw[address] [place], [place] [address]Dr. Bhavani Barragan CORRECTED WBC Normal 4.0-11.0 The [facility] Comment on above: Performed By: #### C OMID ####[facility] Ykmdadyt[address] [place], [place] [address]Dr. Bhavani Barragan EOS # 0.00 103/ul Normal 0.00-0.70 [facility] Comment on above: Performed By: #### C OMID ####[facility] Hntbwwmoav[address] [place], [place] [address]Dr. Bhavani Barragan EOS% 0.0 % Critically low 0.9-7.0 The [facility] Comment on above: Performed By: #### C OMID ####[facility] Hnlcspnrmv[address] [place], [place] [address]Dr. Bhavani Barragan HCT 38.1 % Normal 36.0-48.0 [facility] Comment on above: Performed By: #### C OMID ####[facility] Dmskcpgieu[address] [place], [place] [address]Dr. Bhavani Barragan HGB 11.6 g/dl Critically low 12.0-16.0 [facility] Comment on above: Performed By: #### C OMID ####[facility] Uitvfwxssl[address] [place], [place] [address]Dr. Bhavani Barragan LYMPHM # 1.58 103/ul Normal 1.20-3.80 [facility] Comment on above: Performed By: #### C OMID ####[facility] Vgtpqzkjqz88[address] [place] [id number]. Bhavani Barragan LYMPHM% 5.0 % Critically low 20.5-60.0 [facility] Comment on above: Performed By: #### C OMID ####[facility] Ygxoswoyfu5[address] [place] [id number]. Bhavani Barragan MCH 29.7 pg Normal 26.7-34.0 [facility] Comment on above: Performed By: #### C OMID ####[facility] Wkrqkuvxda49[address] [place] [address]Dr. Bhavani Barragan MCHC 30.4 g/dl Normal 29.9-35.2 [facility] Comment on above: Performed By: #### Jany ANNE ####[facility] Ijcpleflck27[address] [place] [address]Dr. Bhavani Barragan MCV 97.7 fL Normal 81.0-99.0 [facility] Comment on above: Performed By: #### Jany ANNE ####[facility] Tsdsrlwzpu380[address] [place] [address]Dr. Bhavani Barragan METAMYELOCYTE # Normal The [facility] Comment on above: Performed By: #### Jany ANNE ####[facility] Jysehqspex[address] [place] [address]Dr. Bhavani Barragan METAMYELOCYTE % Normal The [facility] Comment on above: Performed By: #### Jany ANNE ####[facility] Gfifrqcqzt7828 [place] [id number]. Bhavani Barragan MONOM# 0.95 103/ul Critically high 0.30-0.80 The [facility] Comment on above: Performed By: #### C OMID ####[facility] Qxblnbxzbq8138 [place] [address]Dr. Bhavani Barragan MONOM% 3.0 % Normal 1.7-12.0 [facility] Comment on above: Performed By: #### C OMID ####[facility] [address]yszxav26[address] [place], [place] [address]Rc. Bhavani Barragan MPV 10.6 fL Normal 9.5-13.5 [facility] Comment on above: Performed By: #### C OMID ####[facility] K[address]frrr01[address] [place], [place] [address]Go. Bhavani Barragan MYELOCYTE # Normal [facility] Comment on above: Performed By: #### C OMID ####[facility] Yqmxkynpgn0071 [place], [place] [address]Dr. Bhavani Barragan MYELOCYTE % Normal [facility] Comment on above: Performed By: #### C OMID ####[facility] Vhmutlqvvt2374 [place] [id number]. Bhavani Barragan NRBC Normal [facility] Comment on above: Performed By: #### C OMID ####[facility] Eadqmfwdvh8704 [place] [phone]. Bhavani Barragan PLT 280 103/ul Normal 150-450 [facility] Comment on above: Performed By: #### C OMID ####[facility] Kxhjemqgcn3639 [place] [phone]. Bhavani Barragan RBC 3.90 106/ul Critically low 4.20-5.40 [facility] Comment on above: Performed By: #### C OMID ####[facility] Crqwhjjytk9010 [place] [phone]. Bhavani Barragan RDW 18.2 % Critically high 11.0-15.0 The [facility] Comment on above: Performed By: #### C OMID ####[facility] Fjcwkvbpxu9327 [place] [phone]. Bhavani Barragan SEG # 27.90 103/ul Critically high 1.40-6.50 [facility] Comment on above: Performed By: #### C OMID ####[facility] Ivfsocaaih1752 [place] [phone]. Bhavani Barragan SEG % 88.0 % Critically high 43.0-75.0 The [facility] Comment on above: Performed By: #### C OMID ####[facility] Gauggrqvof0863 [place] [phone]. Bhavani Barragan WBC 31.7 103/ul Critically high 4.0-11.0 The [facility] Comment on above: Performed By: #### C OMID ####[facility] Xnuuwqulom3[address] [place] [phone]. Bhavani Barragan PERIPHERAL SMEARon 3 Pathologist Cyto stain Nom (Cvx/Vag) [ID] DR. AFTAB SCHAFER Normal The [facility] Comment on above: Result Comment: Revi ew of peripheral smear reveals RBCs with anisocytosis. The platelets areadequate in number with normal morphology. There is leukocytosis withneutrophilia. The WBC morphology is unremarkable. No atypical lymphocytes orimmature blasts are seen. The findings are suggestive of a reactive process.Clinical correlation is recommended. Performed By: #### P ERSMR ####[facility] N[address]nggyi[address] [place] [address]Dr. Bhavani Barragan CBC W MANUAL DIFFon 03-01-20 23 ANISOCYTOSIS 1+ Normal [facility] Comment on above: Performed By: #### C OMID ####[facility] Ieoivmrsms8100 [place] [phone]. Bhavani Barragan ATYPICAL LYMPH # Normal [facility] Comment on above: Performed By: #### C OMID ####[facility] Zsxoqkgugv4008 [place] [phone]. Bhavani Barragan ATYPICAL LYMPH % Normal [facility] Comment on above: Performed By: #### C OMID ####[facility] Xcxwkxlwmp5741 [place] [phone]. Bhavani Barragan BAND # 1.8 103/ul Critically high 0.0-0.3 The [facility] Comment on above: Performed By: #### C OMID ####[facility] Ggwowsembi9539 [place] [phone]. Bhavani Barragan BAND % 5 % Normal 0-5 [facility] Comment on above: Performed By: #### C OMID ####[facility] Faypeflviv1446 [place] [phone]. Bhavani Barragan BASOM # 0.00 103/ul Normal 0.00-0.10 [facility] Comment on above: Performed By: #### C BCMAN ####[facility] Ussjhsgisr4238 [place] [phone]. Bhavani Barragan BASOM % 0.0 % Critically low 0.2-2.0 [facility] Comment on above: Performed By: #### C BCMAN ####[facility] Qsotvnasau[address]661 [place] [address]Dr. Bhavani Barragan BLAST # Normal [facility] Comment on above: Performed By: #### C BCMAN ####[facility] Yiudzvsfqp0157 [place] [address]Dr. Bhavani Barragan BLAST % Normal [facility] Comment on above: Performed By: #### C BCJERSON ####[facility] Isamtj[address] [place], [place] [address]Dr. Bhavani Barragan CORRECTED WBC Normal 4.0-11.0 The [facility] Comment on above: Performed By: #### C BCJERSON ####[facility] Xcqlmetiap10[address] [place] [address]Dr. Bhavani Barragan EOS # 0.00 103/ul Normal 0.00-0.70 [facility] Comment on above: Performed By: #### C BCMAN ####[facility] Dtosnhlucd9039 [place] [address]Dr. Bhavani Barragan EOS% 0.0 % Critically low 0.9-7.0 [facility] Comment on above: Performed By: #### C BCMAN ####[facility] Qdmwvmktpv1208 [place] [address]Dr. Bhavani Barragan HCT 32.6 % Critically low 36.0-48.0 [facility] Comment on above: Performed By: #### C BCMAN ####[facility] Nhqqosaowy[address] [place], [place] [address]Dr. Bhavani Barragan HGB 10.0 g/dl Critically low 12.0-16.0 [facility] Comment on above: Performed By: #### Jany ANNE ####[facility] Mxxxzqdcnh1356 [place] [phone]. Bhavani Barragan LYMPHM # 1.75 103/ul Normal 1.20-3.80 [facility] Comment on above: Performed By: #### Jany ANNE ####[facility] Jlkvqjsvsb5635 [place] [phone]. Bhavani Barragan LYMPHM% 5.0 % Critically low 20.5-60.0 [facility] Comment on above: Performed By: #### C OMID ####[facility] Guqniaijct0576 [place] [phone]. Bhavani Barragan MCH 29.6 pg Normal 26.7-34.0 [facility] Comment on above: Performed By: #### Jany ANNE ####[facility] Xsdiefmdiq7767 [place] [phone]. Bhavani Barragan MCHC 30.7 g/dl Normal 29.9-35.2 [facility] Comment on above: Performed By: #### Jany ANNE ####[facility] Bilwexzzaw0202 [place] [phone]. Bhavani Barragan MCV 96.4 fL Normal 81.0-99.0 [facility] Comment on above: Performed By: #### Jany ANNE ####[facility] Cysdssemjd2368 [place] [phone]. Bhavani Barragan METAMYELOCYTE # Normal The [facility] Comment on above: Performed By: #### Jany ANNE ####[facility] Glumuspaxr0525 [place] [phone]. Bhavani Barragan METAMYELOCYTE % Normal [facility] Comment on above: Performed By: #### Jany ANNE ####[facility] Tbnisoxulm6536 [place] [phone]. Bhavani Barragan MONOM# 0.70 103/ul Normal 0.30-0.80 [facility] Comment on above: Performed By: #### Jany ANNE ####[facility] Ncocyblfxz9046 [place] [phone]. Bhavani Barragan MONOM% 2.0 % Normal 1.7-12.0 [facility] Comment on above: Performed By: #### C OMID ####[facility] Qbbipjtigx2027 [place] [phone]. Bhavani Barragan MPV 9.8 fL Normal 9.5-13.5 [facility] Comment on above: Performed By: #### C OMID ####[facility] Spmgovksbp2866 [place] [phone]. Bhavani Barragan MYELOCYTE # Normal [facility] Comment on above: Performed By: #### C OMID ####[facility] Bspxytrffh9379 [place] [phone]. Bhavani Barragan MYELOCYTE % Normal [facility] Comment on above: Performed By: #### C OMID ####[facility] Hnqizptybe2891 [place] [phone]. Bhavani Barragan NRBC Normal [facility] Comment on above: Performed By: #### C OMID ####[facility] Sxrxqmgzea3341 [place] [phone]. Bhavani Barragan PLT 382 103/ul Normal 150-450 [facility] Comment on above: Performed By: #### C OMID ####[facility] Kpmijdhgeo1312 [place] [phone]. Bhavani Barragan RBC 3.38 106/ul Critically low 4.20-5.40 The [facility] Comment on above: Performed By: #### C OMID ####[facility] Mkeuqsnjpi9170 [place] [phone]. Bhavani Barragan RDW 17.7 % Critically high 11.0-15.0 The [facility] Comment on above: Performed By: #### C OMID ####[facility] Qlsjasvsyf1871 [place] [phone]. Bhavani Barragan SEG # 30.80 103/ul Critically high 1.40-6.50 The [facility] Comment on above: Performed By: #### C OMID ####[facility] Jwvsbxepph9879 [place] [address]Dr. Bhavani Barragan SEG % 88.0 % Critically high 43.0-75.0 [facility] Comment on above: Performed By: #### C OMID ####[facility] Hkzwcgvgbw8983 [place] [address]Dr. Bhavani Barragan WBC 35.0 103/ul Critically high 4.0-11.0 [facility] Comment on above: Performed By: #### C OMID ####[facility] Xafgspcona5799 [place] [address]Dr. Bhavani Barragan PROF 14(COMP METB)on 023 Albumin [Mass/Vol] 2.6 g/dL Critically low 3.4-5.0 [facility] Comment on above: Performed By: #### C MP, TSH ####[facility] Yrtdrtfllr9147 [place] [address]Dr. Bhavani Barragan Albumin/Globulin [Mass ratio] 0.6 {ratio} Normal [facility] Comment on above: Performed By: #### C MP, TSH ####[facility] Zeojlponng5517 [place] [address]Dr. Bhavani Barragan ALP [Catalytic activity/Vol] 117 U/L Critically high 46-116 [facility] Comment on above: Performed By: #### C MP, TSH ####[facility] Ozqhnetoac5746 [place] [address]Dr. Bhavani Barragan ALT [Catalytic activity/Vol] 11 U/L Critically low 14-59 [facility] Comment on above: Performed By: #### C MP, TSH ####[facility] Vzkeaounci6383 [place] [address]Dr. Bhavani Barragan Anion gap [Moles/Vol] 13.0 mmol/L Normal [facility] Comment on above: Performed By: #### C MP, TSH ####[facility] Ervzcrsawp2643 [place] [address]Dr. Bhavani Barragan AST [Catalytic activity/Vol] 19 U/L Normal 15-37 [facility] Comment on above: Performed By: #### C MP, TSH ####[facility] Tdnlciunwn9674 [place] [phone]. Bhavani Braragan Bilirubin [Mass/Vol] 0.4 mg/dL Normal 0.2-1.0 [facility] Comment on above: Performed By: #### C MP, TSH ####[facility] Gbuetvtfgc[address] [place], [place] [address]Dr. Bhavani Barragan Calcium [Mass/Vol] 8.9 mg/dL Normal 8.5-10.1 [facility] Comment on above: Performed By: #### C MP, TSH ####[facility] Wdkqbytqec0625 [place] [address]Dr. Bhavani Barragan Chloride [Moles/Vol] 103 mmol/L Normal 98-107 [facility] Comment on above: Performed By: #### C MP, TSH ####[facility] Lyrzigcxre[address] [place], [place] [address]Dr. Bhavani Barragan CO2 [Moles/Vol] 26.8 mmol/L Normal 21.0-32.0 The [facility] Comment on above: Performed By: #### C MP, TSH ####[facility] Uxxphihnja7[address] [place], [place] [address]Dr. Bhavani Barragan Creatinine [Mass/Vol] 1.44 mg/dL Critically high 0.55-1.02 [facility] Comment on above: Performed By: #### C MP, TSH ####[facility] Kmctctdlux[address] [place], [place] [address]Dr. Bhavani Barragan EGFR-AF ICELANDIC 42 mL/min/1.73m2 Critically low >=60 [facility] Comment on above: Performed By: #### C MP, TSH ####[facility] Yfyytduovd[address] [place], [place] [address]Dr. Bhavani Barragan EGFR-NON AF ICELANDIC 35 mL/min/1.73m2 Critically low >=60 [facility] Comment on above: Performed By: #### C MP, TSH ####[facility] Ewxuouqiap[address] [place], [place] [address]Dr. Bhavani Barragan Globulin (S) [Mass/Vol] 4.4 g/dL Normal [facility] Comment on above: Performed By: #### C MP, TSH ####[facility] Omjclonfww1447 [place] [phone]. Bhavani Barragan Glucose [Mass/Vol] 90 mg/dL Normal 74-106 The [facility] Comment on above: Performed By: #### C MP, TSH ####[facility] Zmyhgbubnb7733 [place] [address]Dr. Bhavani Barragan Potassium [Moles/Vol] 4.8 mmol/L Normal 3.5-5.1 [facility] Comment on above: Performed By: #### C MP, TSH ####[facility] Osmhfvukph4062 [place] [address]Dr. Bhavani Barragan Protein [Mass/Vol] 7.0 g/dL Normal 6.4-8.2 The [facility] Comment on above: Performed By: #### C MP, TSH ####[facility] Zuyygxsgeo[address] [place], [place] [address]Dr. Bhavani Barragan Sodium [Moles/Vol] 138 mmol/L Normal 136-145 The [facility] Comment on above: Performed By: #### C MP, TSH ####[facility] Xgrmnsfdls[address] [place], [place] [address]Dr. Bhavani Barragan Urea nitrogen [Mass/Vol] 32.0 mg/dL Critically high 7.0-18.0 [facility] Comment on above: Performed By: #### C MP, TSH ####[facility] Yigyrlzvej[address] [place], [place] [address]Dr. Bhavani Barragan Urea nitrogen/Creatinine [Mass ratio] 22.2 mg/mg Normal [facility] Comment on above: Performed By: #### C MP, TSH ####[facility] Himcakbmyk1570 [place] [address]Dr. Bhavani Barragan TSHon 03-01-2023 TSH 3.630 uIU/mL Normal 0.358-3.740 The [facility] Comment on above: Performed By: #### C MP, TSH ####[facility] Lscpavspld[address] [place], [place] [address]Dr. Bhavani Barragan CULTURE URINEon 02-09-2023 CULTURE URINE Normal [facility] Comment on above: Performed By: #### U RCX ####[facility] Donezviryg2543 [place] [address]Dr. Bhavani Barragan CBC W MANUAL DIFFon 02-07-20 ANISOCYTOSIS 1+ Normal [facility] Comment on above: Performed By: #### C BCMAN ####[facility] Tedkverlbc1502 [place] [address]Dr. Bhavani Barragan ATYPICAL LYMPH # Normal [facility] Comment on above: Performed By: #### C BCMAN ####[facility] Jcyayozvqu[address] [place], [place] [address]Dr. Bhavani Barragan ATYPICAL LYMPH % Normal [facility] Comment on above: Performed By: #### C BCMAN ####[facility] Reemtesfhn[address] [place], [place] [address]Dr. Jayceeroxi Barragan BAND # 1.2 103/ul Critically high 0.0-0.3 [facility] Comment on above: Performed By: #### C BCMAN ####[facility] Aizswsjwbr[address] [place], [place] [address]Dr. Bhavani Laurel BAND % 5 % Normal 0-5 [facility] Comment on above: Performed By: #### C BCMAN ####[facility] Stibosfxva[address] [place], [place] [address]Dr. Bhavani Barragan BASOM # 0.00 103/ul Normal 0.00-0.10 [facility] Comment on above: Performed By: #### C BCMAN ####[facility] Ayycvoxgdq[address] [place], [place] [address]Dr. Bhavani Laurel BASOM % 0.0 % Critically low 0.2-2.0 [facility] Comment on above: Performed By: #### C BCMAN ####[facility] Oczjvxmyly[address] [place], [place] [address]Dr. Bhavani Barragan BLAST # Normal [facility] Comment on above: Performed By: #### C BCMAN ####[facility] Mawjklveer[address] [place], [place] [address]Dr. Bhavani Barragan BLAST % Normal [facility] Comment on above: Performed By: #### C OMID ####[facility] Jbqwbtixdz0721 [place] [id number]. Bhavani Barragan CORRECTED WBC Normal 4.0-11.0 [facility] Comment on above: Performed By: #### C OMID ####[facility] Mxttndorzq1670 [place] [phone]. Bhavani Barragan EOS # 0.00 103/ul Normal 0.00-0.70 [facility] Comment on above: Performed By: #### C OMID ####[facility] Rjfwwdagph7633 [place] [phone]. Bhavani Barragan EOS% 0.0 % Critically low 0.9-7.0 [facility] Comment on above: Performed By: #### C OMID ####[facility] Jnaausqukm8618 [place] [id number]. Bhavani Barragan HCT 39.3 % Normal 36.0-48.0 [facility] Comment on above: Performed By: #### C OMID ####[facility] Lzufbisycv3008 [place] [id number]. Bhavani Barragan HGB 12.6 g/dl Normal 12.0-16.0 [facility] Comment on above: Performed By: #### C OMID ####[facility] Ecvwovihhe7099 [place] [id number]. Bhavani Barragan LYMPHM # 2.11 103/ul Normal 1.20-3.80 [facility] Comment on above: Performed By: #### C OMID ####[facility] Rhsoxlapyz5317 [place] [id number]. Bhavani Barragan LYMPHM% 9.0 % Critically low 20.5-60.0 The [facility] Comment on above: Performed By: #### C OMID ####[facility] Kruyxijlgg1634 [place] [phone]. Bhavani Barragan MCH 29.6 pg Normal 26.7-34.0 [facility] Comment on above: Performed By: #### C OMID ####[facility] Pccaabtvec1489 [place] [address]Dr. Bhavani Barragan MCHC 32.1 g/dl Normal 29.9-35.2 [facility] Comment on above: Performed By: #### Jany ANNE ####[facility] Ogskpcequz7512 [place] [id number]. Bhavani Barragan MCV 92.3 fL Normal 81.0-99.0 [facility] Comment on above: Performed By: #### C OMID ####[facility] Pqztvphzqg5403 [place] [address]Dr. Bhavani Barragan METAMYELOCYTE # Normal The [facility] Comment on above: Performed By: #### Jany ANNE ####[facility] Lhrfhbhvdm6345 [place] [address]Dr. Bhavani Barragan METAMYELOCYTE % Normal The [facility] Comment on above: Performed By: #### Jany ANNE ####[facility] Sarjbcetsk[address] [place], [place] [address]Dr. Bhavani Barragan MONOM# 0.94 103/ul Critically high 0.30-0.80 [facility] Comment on above: Performed By: #### Jany ANNE ####[facility] Bxsuzrhzfj[address] [place], [place] [address]Dr. Bhavani Barragan MONOM% 4.0 % Normal 1.7-12.0 [facility] Comment on above: Performed By: #### Jany ANNE ####[facility] Tdqcwnccev0343 [place] [address]Dr. Bhavani Barragan MPV 11.0 fL Normal 9.5-13.5 [facility] Comment on above: Performed By: #### Jany ANNE ####[facility] Dtlkspktun[address] [place], [place] [address]Dr. Bhavani Barragan MYELOCYTE # Normal [facility] Comment on above: Performed By: #### Jany ANNE ####[facility] Oyoshlejng[address] [place], [place] [address]Dr. Bhavani Barragan MYELOCYTE % Normal [facility] Comment on above: Performed By: #### C OMID ####[facility] Jkshvxxttd0955 [place], [place] [address]Ok. Bhavani Barragan NRBC Normal [facility] Comment on above: Performed By: #### C OMID ####[facility] Nkworhibwu0506 [place] [id number]. Bahvani Barragan PLT 198 103/ul Normal 150-450 [facility] Comment on above: Performed By: #### C OMID ####[facility] Qugcbziblz6728 [place] [phone]. Bhavani Barragan RBC 4.26 106/ul Normal 4.20-5.40 [facility] Comment on above: Performed By: #### C OMID ####[facility] Inmafuxgdy4406 [place] [address]Dr. Bhavani Barragan RDW 16.3 % Critically high 11.0-15.0 The [facility] Comment on above: Performed By: #### C OMID ####[facility] Dyrpoicrss5800 [place] [address]Dr. Bhavani Barragan SEG # 19.19 103/ul Critically high 1.40-6.50 [facility] Comment on above: Performed By: #### C OMID ####[facility] Sgcdylgnmq4477 [place] [address]Dr. Bhavani Barragan SEG % 82.0 % Critically high 43.0-75.0 The [facility] Comment on above: Performed By: #### Jany ANNE ####[facility] Vlrlidubnt3940 [place] [phone]. Bhavani Barragan WBC 23.4 103/ul Critically high 4.0-11.0 The [facility] Comment on above: Performed By: #### C OMID ####[facility] Oubuufsxwl[address] [place], [place] [address]Dr. Bhavani Barragan CT LSPINE WO CONon 3 CT LSPINE WO CON Normal The [facility] CT PELVIS WO CONon 3 CT PELVIS WO CON Normal The [facility] CULTURE BLOODon 02-06-2023 Microscopic examination of blood, culture Culture Observations: NO GROWTH AT 5 DAYS. Normal The [facility] Comment on above: Performed By: #### B LDCX2 ####[facility] Ngkijgcbav0884 [place] [address]Dr. Jayceeroxi Barragan Performed By: #### B LDCX1 ####[facility] Zjqhhqyxng3610 [place] [address]Dr. Bhavani Barragan Covid-19 PCR (CVDTB)on 01-17 SARS-CoV-2 (COVID-19) RNA MATTHEW+probe Ql (Unsp spec) Not detected Normal NOT DETECTED [facility] Comment on above: Result Comment: When [...] for this test is supported by the [employer] Operator of Health and Human Service's declaration [...] be used). Performed By: #### C VDTBH ####[facility] Ebmorkjukw9357 [place] [address]Dr. Bhavani Laurel ER URINE PROFILEon 3 Bilirubin Ql (U) Negative Normal NEGATIVE The [facility] Comment on above: Performed By: #### U MICRO, ERUR ####[facility] Lvajbpdptn[address] [place], [place] [address]Dr. Bhavani Barragan Clarity (U) SL CLOUDY Abnormal CLEAR [facility] Comment on above: Performed By: #### U MICRO, ERUR ####[facility] Onxxtjdxuj335[address] [place], [place] [address]Dr. Yilan Barragan Color (U) LT. YELLOW Normal YELLOW [facility] Comment on above: Performed By: #### U MICRO, ERUR ####[facility] Uvwjhblomi475[address] [place], [place] [address]Dr. Bhavani HSUD A micrscopic examination will be performed if indicated. Normal [facility] Comment on above: Performed By: #### U MICRO, ERUR ####[facility] Btrbbcpooo7[address] [place], [place] [address]Dr. Bhavani Barragan Glucose Ql (U) Negative Normal NEGATIVE [facility] Comment on above: Performed By: #### U MICRO, ERUR ####[facility] Fvasxljyrt638[address] [place], [place] [address]Dr. Bhavani Barragan Hemoglobin Ql (U) TRACE-INTACT Abnormal NEGATIVE [facility] Comment on above: Performed By: #### U MICRO, ERUR ####[facility] Nsnwbbvgff457[address] [place], [place] [address]Dr. Bhavani Barragan Ketones Ql (U) Negative Normal NEGATIVE [facility] Comment on above: Performed By: #### U MICRO, ERUR ####[facility] Kmmtvjirmv[address] [place], [place] [address]Dr. Bhavani Barragan LEUKOCYTES SMALL Abnormal NEGATIVE [facility] Comment on above: Performed By: #### U MICRO, ERUR ####[facility] Bowiexczhb[address] [place], [place] [address]Dr. Bhavani Barragan Nitrite Ql (U) Positive Abnormal NEGATIVE [facility] Comment on above: Performed By: #### U MICRO, ERUR ####[facility] Sgbcbalxkw[address] [place], [place] [address]Dr. Bhavani Barragan pH (U) 6.0 [pH] Normal 5-9 [facility] Comment on above: Performed By: #### U MICRO, ERUR ####[facility] Iyxpivvhkq[address] [place], [place] [address]Dr. Bhavani Barragan Protein (U) [Mass/Vol] 30 mg/dL Abnormal NEGATIVE/ TRACE [facility] Comment on above: Performed By: #### U MICRO, ERUR ####[facility] Yzoyelzjmd1258 [place] [address]Dr. Bhavani Barragan SPEC GRAVITY 1.020 Normal 1.005-<=1.02 5 [facility] Comment on above: Performed By: #### U MICRO, ERUR ####[facility] Rfugkrtgxy3162 [place] [address]Dr. hBavani Barragan UR MICRO IND INDICATED Normal [facility] Comment on above: Performed By: #### U MICRO, ERUR ####[facility] Tonxfyoxvo2709 [place] [address]Dr. Bhavani Barragan Urobilinogen Qn (U) 0.2 {Ridge'U}/dL Normal 0.2 - 1. 0 [facility] Comment on above: Performed By: #### U MICRO, ERUR ####[facility] Jcrdksipdn3669 [place] [address]Dr. Bhavani Barragan LACTATE/LACTIC ACIDon 2022 Lactate [Moles/Vol] 1.5 mmol/L Normal 0.4-2.0 [facility] Comment on above: Performed By: #### L ACT ####[facility] Maobpbkeua[address] [place], [place] [address]Dr. Bhavani Barragan PROF CHEM 8 (BAS METB)on Anion gap [Moles/Vol] 14.7 mmol/L Normal [facility] Comment on above: Performed By: #### B MP ####[facility] Jzdyaelrtz5260 [place] [address]Dr. Bhavani Barragan Calcium [Mass/Vol] 8.2 mg/dL Critically low 8.5-10.1 [facility] Comment on above: Performed By: #### B MP ####[facility] Zochnnkyag7719 [place] [address]Dr. Bhavani Barragan Chloride [Moles/Vol] 103 mmol/L Normal 98-107 [facility] Comment on above: Performed By: #### B MP ####[facility] Wsiudellst5480 [place] [address]Dr. Bhavani Barragan CO2 [Moles/Vol] 22.4 mmol/L Normal 21.0-32.0 [facility] Comment on above: Performed By: #### B MP ####[facility] Tzhzbhipkz7968 [place] [address]Dr. Jayceeroxi Laurel Creatinine [Mass/Vol] 1.39 mg/dL Critically high 0.55-1.02 [facility] Comment on above: Performed By: #### B MP ####[facility] Aasrxekwuj0798 [place] [address]Dr. Bhavani Barragan EGFR-AF ICELANDIC 44 mL/min/1.73m2 Critically low >=60 [facility] Comment on above: Performed By: #### B MP ####[facility] Kumeujjfpp6251 [place] [address]Dr. Bhavani Barragan EGFR-NON AF ICELANDIC 36 mL/min/1.73m2 Critically low >=60 [facility] Comment on above: Performed By: #### B MP ####[facility] Iavjhandbi[address] [place], [place] [address]Dr. Bhavani Barragan Glucose [Mass/Vol] 161 mg/dL Critically high 74-106 [facility] Comment on above: Performed By: #### B MP ####[facility] Vnluuasymb05[address] [place], [place] [address]Dr. Bhavani Barragan Potassium [Moles/Vol] 4.1 mmol/L Normal 3.5-5.1 [facility] Comment on above: Performed By: #### B MP ####[facility] Pqlgyadbzj57[address] [place], [place] [address]Dr. Bhavani Barragan Sodium [Moles/Vol] 136 mmol/L Normal 136-145 [facility] Comment on above: Performed By: #### B MP ####[facility] Pvidyulgby[address] [place], [place] [address]Dr. Bhavani Barragan Urea nitrogen [Mass/Vol] 23.0 mg/dL Critically high 7.0-18.0 [facility] Comment on above: Performed By: #### B MP ####[facility] Nlsmtrxmit46[address] [place], [place] [address]Dr. Bhavani Barragan Urea nitrogen/Creatinine [Mass ratio] 16.5 mg/mg Normal [facility] Comment on above: Performed By: #### B MP ####[facility] Kthbicnlov[address] [place], [place] [address]Dr. Bhavani Barragan PROTIMEon 02-06-2023 INR Coag (PPP) [Relative time] 1.12 {INR} Normal [facility] Comment on above: Performed By: #### P TT, PT ####[facility] Ffdpfbzict[address] [place], [place] [address]Dr. Bhavani Barragan INR GUIDELINES SEE BELOW Normal The [facility] Comment on above: Result Comment: WALKER RED INR: 2.0 - 3.0 CONDITIONS NOT LISTED BELOW 2.5 - 3.5 FOR PROSTHETIC HEART VALVE REPLACEMENT 2.5 - 3.5 RECURRENT THROMBOSIS Performed By: #### P TT, PT ####[facility] Ybdgkdehry01[address] [place], [place] [address]Dr. Bhavani Barragan PT Coag (PPP) [Time] 11.8 s Critically high 9.0-11.6 [facility] Comment on above: Performed By: #### P TT, PT ####[facility] Stnzsaiwxc99[address] [place], [place] [address]Dr. Bhavani Barragan PTTon 02-06-2023 aPTT Coag (Bld) [Time] 23.8 s Normal 22.3-36.2 [facility] Comment on above: Performed By: #### P TT, PT ####[facility] Fdvwdlhuig[address] [place], [place] [address]Dr. Bhavani Barragan URINE MICROSCOPIC ONLYon BACTERIA LARGE Abnormal NONE SEEN [facility] Comment on above: Performed By: #### U MICRO, ERUR ####[facility] Dmckejzsju[address] [place], [place] [address]Dr. Bhavani Barragan Bacteria identified Cx Nom (U) INDICATED Normal [facility] Comment on above: Performed By: #### U MICRO, ERUR ####[facility] Lnnqgbajhc[address] [place], [place] [address]Dr. Bhavani Barragan CAST NONE SEEN Normal NONE SEEN [facility] Comment on above: Performed By: #### U MICRO, ERUR ####[facility] Bvdsbyxcoa0435 [place] [address]Dr. Bhavani Barragan Crystals LM Nom (Urine sed) NONE SEEN Normal NONE SEEN [facility] Comment on above: Performed By: #### U MICRO, ERUR ####[facility] Pyrggeecoq6964 [place] [address]Dr. Bhavani Barragan Epithelial cells LM Ql (Urine sed) RARE Normal NONE SEEN /RARE [facility] Comment on above: Performed By: #### U MICRO, ERUR ####[facility] Ddzxlbgklm2718 [place] [address]Dr. Bhavani Barragan MUCOUS NONE SEEN Normal NONE SEEN [facility] Comment on above: Performed By: #### U MICRO, ERUR ####[facility] Fsoruczyqu0945 [place] [address]Dr. Bhavani Barragan RBC 0-2 Normal 0-2 [facility] Comment on above: Performed By: #### U MICRO, ERUR ####[facility] Fmretzvolp2507 [place] [address]Dr. Bhavani Barragan WBC 10-20 Abnormal NONE SEEN [facility] Comment on above: Performed By: #### U MICRO, ERUR ####[facility] Yoaskjhvsf2360 [place] [address]Dr. Bhavani Barragan XR CHEST 1 Von 02-06-2023 XR CHEST 1 V Normal [facility] XR FEMUR RTon 02-06-2023 XR FEMUR RT Normal [facility] Orders Onlyon 01-22-2023 Orders Only [id number] Jennifer Tafoya 1940 F Date Provider Department [facility] Family History Problem Relation Age of Onset Diabetes Sister Diabetes Brother Diabetes Maternal Grandfather Family Status - Relation Status Age at Sister Brother Maternal Grandfather Normal [facility] CBC AUTO DIFFon 01-18-2023 BASO # 0.1 103/ul Normal 0.0-0.1 [facility] Comment on above: Performed By: #### C BC ####[facility] Wxpvezedky9039 [place] [address]Dr. Bhavani Barragan Basophils/100 WBC (Bld) 0.7 % Normal 0.2-2.0 [facility] Comment on above: Performed By: #### C BC ####[facility] Pcmxlsosqh3455 [place] [address]Dr. Bhavani Barragan EO # 0.0 103/ul Normal 0.0-0.7 [facility] Comment on above: Performed By: #### C BC ####[facility] Irqpkfpvsq7492 [place] [address]Dr. Bhavani Barragan Eosinophils/100 WBC (Bld) 0.2 % Critically low 0.9-7.0 [facility] Comment on above: Performed By: #### C BC ####[facility] Eyankqezsy[address] [place], [place] [address]Dr. Bhavani Barragan Erythrocyte distribution width (RBC) [Ratio] 16.4 % Critically high 11.0-15.0 [facility] Comment on above: Performed By: #### C BC ####[facility] Vzakhdrdtf[address] [place], [place] [address]Dr. Bhavani Barragan Hematocrit (Bld) [Volume fraction] 41.5 % Normal 36.0-48.0 [facility] Comment on above: Performed By: #### C BC ####[facility] Fzsgfrwbgo[address] [place], [place] [address]Dr. Bhavani Barragan Hemoglobin (Bld) [Mass/Vol] 13.0 g/dL Normal 12.0-16.0 [facility] Comment on above: Performed By: #### C BC ####[facility] Mcshjpyzkv8142 [place] [address]Dr. Bhavani Barragan IG # 0.24 10e3/ul Critically high 0.00-0.03 The [facility] Comment on above: Performed By: #### C BC ####[facility] Ouaeidcfkd[address] [place], [place] [address]Dr. Bhavani Barragan IG % 1.3 % Critically high 0.0-0.5 The [facility] Comment on above: Performed By: #### C BC ####[facility] Vbcxwuxokj4065 [place], [place] [address]Jn. Bhavani Barragan LYMPH # 1.5 103/ul Normal 1.2-3.8 [facility] Comment on above: Performed By: #### C BC ####[facility] Cxkrqvevdv3620 [place], [place] [address]Ku. Bhavani Barragan Lymphocytes/100 WBC (Bld) 8.1 % Critically low 20.5-60.0 [facility] Comment on above: Performed By: #### C BC ####[facility] Nmgmiiessj6283 [place], [place] [address]Hy. Bhavani Laurel MANUAL DIFF REQ NO Normal [facility] Comment on above: Performed By: #### C BC ####[facility] Isprafgapj0963 [place], [place] [address]Gj. Bhavani Laurel MCH (RBC) [Entitic mass] 28.9 pg Normal 26.7-34.0 [facility] Comment on above: Performed By: #### C BC ####[facility] Hkpwkzomdo3859 [place] [address]Dr. Bhavani Barragan MCHC (RBC) [Mass/Vol] 31.3 g/dL Normal 29.9-35.2 [facility] Comment on above: Performed By: #### C BC ####[facility] Uanynmmcjw6500 [place], [place] [address]Yh. Bhavani Barragan MCV (RBC) [Entitic vol] 92.2 fL Normal 81.0-99.0 [facility] Comment on above: Performed By: #### C BC ####[facility] Jqtpuvioio2084 [place] [address]Dr. Bhavani Barragan MONO # 0.2 103/ul Critically low 0.3-0.8 [facility] Comment on above: Performed By: #### C BC ####[facility] Ebcaiccvzs7005 [place], [place] [address]Kl. Bhavani Laurel Monocytes/100 WBC (Bld) 1.3 % Critically low 1.7-12.0 [facility] Comment on above: Performed By: #### C BC ####[facility] Vqircnmcex4218 [place] [address]Dr. Bhavani Barragan NEUT # 16.0 103/ul Critically high 1.4-6.5 The [facility] Comment on above: Performed By: #### C BC ####[facility] Oqyxphuvja4879 [place] [address]Dr. Bhavani Barragan Neutrophils/100 WBC (Bld) 88.4 % Critically high 43.0-75.0 [facility] Comment on above: Performed By: #### C BC ####[facility] Feajqchzdp5235 [place] [address]Dr. Bhavani Barragan Platelet mean volume (Bld) [Entitic vol] 12.1 fL Normal 9.5-13.5 [facility] Comment on above: Performed By: #### C BC ####[facility] Xvvferqwfy0294 [place] [address]Dr. Bhavani Barragan PLT 170 103/ul Normal 150-450 [facility] Comment on above: Performed By: #### C BC ####[facility] Misqeakvgu7538 [place] [address]Dr. Bhavani Barragan RBC 4.50 106/ul Normal 4.20-5.40 [facility] Comment on above: Performed By: #### C BC ####[facility] Cbxsapresg3939 [place] [address]Dr. Bhavani Barragan WBC 18.1 103/ul Critically high 4.0-11.0 The [facility] Comment on above: Performed By: #### C BC ####[facility] Amsukllaqh5955 [place] [address]Dr. Bhavani Barragan ECHOCARDIO M/2D COMPLETEon 0 01-18-2023 ECHOCARDIO M/2D COMPLETE Normal [facility] Office Visiton 12-25-2022 Follow-up visit [id number] Jennifer Tafoya 1940 F Date Provider Department Center 12/25/2022 TRACI LICEA [facility] Family History Problem Relation Age of Onset Diabetes Sister Diabetes Brother Diabetes Maternal Grandfather Family Status - Relation Status Age at Sister Brother Maternal Grandfather Level of Service:46351 [place] OFFICE/OUTPATIENT ESTABLISHED MOD MDM 30-39 MIN Reason for Visit and Comments: Atrial Fibrillation [80] Normal [facility] Endoscopy Reporton Endoscopy Report MR#: [id number] [facility] Pt. Name: María Elena Tafoya Surgery Date: [...] Barillas M.D. Date Trans: 06/27/2022 03:26 A/erik [id number] cc: Bennie Albright M.D. [address], [place] [address] [facility] ABDOMEN 1 [facility] 06-26-2022 ABDOMEN 1 [facility] Department of Radiology [address] [place] [id number] ======== Patient Name: MARÍA ELENA TAFOYA [...] identified. Electronically signed: Roge Bah. Transcribed by: [email or web address], User Resident: Electronically Signed by: ROGE BAH @ 06/26/2022 11:52 AM Normal The [facility] Comment on above: Order Comment: Check Stent Position, NO ERCPon 06-26-2022 ERCP [facility] Department of Radiology [address] [place] [phone] ======== Patient Name: MARÍA ELENA TAFOYA : 1940 Sex: F Age: Race: White Pt. Location: [facility] Patient Status: Ordered Date: 06/26/2022 5:00:00 [...] procedure note for further details. Electronically signed: FRASHAD SILVA. Transcribed by: [email or web address], User Resident: Electronically Signed by: FARSHAD SILVA @ 06/27/2022 09:15 AM Normal The [facility] Comment on above: Order Comment: , [place] ointment Date: 06/26/2022 , Appointment Time: 1015 , Appointment Date: 06/26/2022 , Appointment Time: 1015 , , , Ordering Provider - ELIU BRAUN MD , POC GLUCOSE LABon 06-26-2022 Glucose [Mass/Vol] 121 mg/dL High 70-100 [facility] Comment on above: Performed By: #### 8 [id number] #### [facility] [address] [place] [address], [facility] Glucose [Mass/Vol] 116 mg/dL High 70-100 [facility] Comment on above: Performed By: #### 8 5499 #### [facility] [address] POC SARS COV2 IDon 2 SARS-CoV-2 (COVID-19) RNA MATTHEW+probe Ql (Unsp spec) Negative Normal NEGATIVE The [facility] Comment on above: Result Comment: ID N [...] Accreditation. Performed By: #### 8 [id number] #### [facility] [address] [place] [address], [facility] XR MODIFIED BARIUM SWALLOWon 05-08-2022 XR MODIFIED BARIUM SWALLOW Normal [facility] POC GLUCOSE LABon 04-16-2022 Glucose [Mass/Vol] 103 mg/dL High 70-100 [facility] Comment on above: Performed By: #### 8 [id number] ####[facility] [address] POC GLUCOSE LABon 04-15-2022 Glucose [Mass/Vol] 112 mg/dL High 70-100 [facility] Comment on above: Performed By: #### 8 5499 #### [facility] [address] [place] [address], [facility] Glucose [Mass/Vol] 131 mg/dL High 70-100 [facility] Comment on above: Performed By: #### 8 5499 #### [facility] [address] [place] [address], [place] Glucose [Mass/Vol] 122 mg/dL High 70-100 The [facility] Comment on above: Performed By: #### 5 0608 #### [facility] [address] [place] [address], [place] Glucose [Mass/Vol] 118 mg/dL High 70-100 The [facility] Comment on above: Performed By: #### 8 [id number] #### [facility] [address] [place] [address], [place] BASIC METABOLIC PANELon 05-2 Calcium [Mass/Vol] 8.1 mg/dL Low 8.6-10.3 The [facility] Comment on above: Order Comment: No: D o not add to previous draw Performed By: #### 2 2706 #### [facility] [address] [place] [address], [place] Chloride [Moles/Vol] 104 mmol/L Normal 98-107 The [facility] Comment on above: Order Comment: No: D o not add to previous draw Performed By: #### 2 2706 #### [facility] [address] [place] [address], [place] CO2 [Moles/Vol] 27 mmol/L Normal 21-31 The [facility] Comment on above: Order Comment: No: D o not add to previous draw Performed By: #### 2 2706 #### [facility] [address] [place] [address], [place] Creatinine [Mass/Vol] 1.34 mg/dL High 0.60-1.20 The [facility] Comment on above: Order Comment: No: D o not add to previous draw Performed By: #### 2 7576 #### [facility] [address] [place] [address], [place] eGFR- 46 ml/min/1.73sq m Abnormal >60 [facility] Comment on above: Order Comment: No: D o not add to previous draw Result Comment: Calc ulation may not be valid for patients over 70 years Performed By: #### 2 2706 #### [facility] [address] [place] [address], [facility] eGFR- non- 38 ml/min/1.73sq m Abnormal >60 [facility] Comment on above: Order Comment: No: D o not add to previous draw Result Comment: Calc ulation may not be valid for patients over 70 years Performed By: #### 2 2706 #### [facility] [address] [place] [address], [place] Glucose [Mass/Vol] 106 mg/dL High 70-100 [facility] Comment on above: Order Comment: No: D o not add to previous draw Performed By: #### 2 2706 #### [facility] [address] [place] [address], [place] Potassium [Moles/Vol] 4.9 mmol/L Normal 3.5-5.1 The [facility] Comment on above: Order Comment: No: D o not add to previous draw Performed By: #### 2 2706 #### [facility] [address] [place] [address], [place] Sodium [Moles/Vol] 135 mmol/L Low 136-145 [facility] Comment on above: Order Comment: No: D o not add to previous draw Performed By: #### 2 2706 #### [facility] [address] [place] [address], [place] Urea nitrogen [Mass/Vol] 22 mg/dL Normal 7-25 The [facility] Comment on above: Order Comment: No: D o not add to previous draw Performed By: #### 2 2706 #### [facility] [address] [place] [address], [place] CBC COMPLETE BLOOD COUNTon 0 5-28-2022 Erythrocyte distribution width (RBC) [Ratio] 20.9 % High 11.5-15.0 The [facility] Comment on above: Order Comment: No: D o not add to previous draw Performed By: #### 8 5499 #### [facility] [address] [place] [address], [facility] Hematocrit (Bld) [Volume fraction] 27.5 % Low 36.0-45.0 The [facility] Comment on above: Order Comment: No: D o not add to previous draw Performed By: #### 8 5499 #### [facility] [address] [place] [address], [facility] Hemoglobin (Bld) [Mass/Vol] 8.5 g/dL Low 12.0-15.0 The [facility] Comment on above: Order Comment: No: D o not add to previous draw Performed By: #### 8 5499 #### [facility] [address] [place] [address], [place] IMM PLATELET FRAC 10.2 % High 0.8-6.3 The [facility] Comment on above: Order Comment: No: D o not add to previous draw Performed By: #### 8 5499 #### [facility] [address] [place] [address], [place] MCH (RBC) [Entitic mass] 31.1 pg Normal 27.0-33.0 The [facility] Comment on above: Order Comment: No: D o not add to previous draw Performed By: #### 8 5499 #### [facility] [address] [place] [address], [place] MCHC (RBC) [Mass/Vol] 30.9 g/dL Low 32.0-35.0 The [facility] Comment on above: Order Comment: No: D o not add to previous draw Performed By: #### 8 5499 #### [facility] [address] [place] [address], [place] MCV (RBC) [Entitic vol] 100.7 fL High 82.0-98.0 The [facility] Comment on above: Order Comment: No: D o not add to previous draw Performed By: #### 8 5499 #### [facility] [address] [place] [address], [facility] Nucleated RBC/100 WBC (Bld) [Ratio] 0 % Normal 0-0 The [facility] Comment on above: Order Comment: No: D o not add to previous draw Performed By: #### 8 5499 #### [facility] [address] [place] [address], [facility] PLAT ESTIMATE Normal Normal The [facility] Comment on above: Order Comment: No: D o not add to previous draw Result Comment: EDTA smear shows platelet clumping, see platelet estimate Performed By: #### 8 5499 #### [facility] [address] [place] [address], [facility] RBC (Bld) [#/Vol] 2.73 10*6/uL Low 3.80-5.00 The [facility] Comment on above: Order Comment: No: D o not add to previous draw Performed By: #### 8 5499 #### [facility] [address] [place] [address], [place] WBC (Bld) [#/Vol] 19.62 10*3/uL High 4.00-10.60 The [facility] Comment on above: Order Comment: No: D o not add to previous draw Performed By: #### 8 5499 #### [facility] [address] [place] [address], [facility] MAGNESIUM BLOODon 04-14-2022 Magnesium [Mass/Vol] 1.9 mg/dL Normal 1.9-2.7 The [facility] Comment on above: Order Comment: No: D o not add to previous draw Performed By: #### 2 2706 #### [facility] [address] [place] [address], [place] POC GLUCOSE LABon 04-14-2022 Glucose [Mass/Vol] 117 mg/dL High 70-100 [facility] Comment on above: Performed By: #### 3 0313 #### [facility] [address] [place] [address], [place] Glucose [Mass/Vol] 119 mg/dL High 70-100 [facility] Comment on above: Performed By: #### 8 5499 #### [facility] [address] [place] [address], [place] Glucose [Mass/Vol] 113 mg/dL High 70-100 [facility] Comment on above: Performed By: #### 8 5499 #### [facility] [address] [place] [address], [place] Glucose [Mass/Vol] 112 mg/dL High 70-100 [facility] Comment on above: Performed By: #### 8 5499 #### [facility] [address] [place] [address], [place] BASIC METABOLIC PANELon 03-19 Calcium [Mass/Vol] 8.4 mg/dL Low 8.6-10.3 [facility] Comment on above: Order Comment: Bleed , altereed mental status Performed By: #### 4 1000, 96142, 06146 ####[facility] [place] [address], [place] Chloride [Moles/Vol] 105 mmol/L Normal 98-107 The [facility] Comment on above: Order Comment: Bleed , altereed mental status Performed By: #### 4 1000, 82307, 64612 ####[facility] [place] [address], [place] CO2 [Moles/Vol] 24 mmol/L Normal 21-31 The [facility] Comment on above: Order Comment: Bleed , altereed mental status Performed By: #### 4 1000, , 26746 ####[facility] [place] [address], [facility] Creatinine [Mass/Vol] 1.31 mg/dL High 0.60-1.20 [facility] Comment on above: Order Comment: Bleed , altereed mental status Performed By: #### 4 1000, , 81954 ####[facility] [place] [address], [facility] eGFR- 47 ml/min/1.73sq m Abnormal >60 [facility] Comment on above: Order Comment: Bleed , altereed mental status Result Comment: Calc ulation may not be valid for patients over 70 years Performed By: #### 4 1000, , 76823 ####[facility] [place] [address], [facility] eGFR- non- 39 ml/min/1.73sq m Abnormal >60 [facility] Comment on above: Order Comment: Bleed , altereed mental status Result Comment: Calc ulation may not be valid for patients over 70 years Performed By: #### 4 1000, , 68558 ####[facility] [place] [address], [place] Glucose [Mass/Vol] 85 mg/dL Normal 70-100 [facility] Comment on above: Order Comment: Bleed , altereed mental status Performed By: #### 4 1000, , 52165 ####[facility] [place] [address], [place] Potassium [Moles/Vol] 5.2 mmol/L High 3.5-5.1 The [facility] Comment on above: Order Comment: Bleed , altereed mental status Performed By: #### 4 1000, , 51515 ####[facility] [place] [address], [place] Sodium [Moles/Vol] 137 mmol/L Normal 136-145 [facility] Comment on above: Order Comment: Bleed , altereed mental status Performed By: #### 4 1000, 28698, 71574 ####[facility] [place] [address], [facility] Urea nitrogen [Mass/Vol] 21 mg/dL Normal 7-25 The [facility] Comment on above: Order Comment: Bleed , altereed mental status Performed By: #### 4 1000, 76322, 01487 ####[facility] [address], [facility] CBC COMPLETE BLOOD COUNT04-13-2022 Erythrocyte distribution width (RBC) [Ratio] 20.4 % High 11.5-15.0 The [facility] Comment on above: Order Comment: No: D o not add to previous draw Performed By: #### 8 5619 #### [facility] [address] [place] [address], [facility] Hematocrit (Bld) [Volume fraction] 29.2 % Low 36.0-45.0 The [facility] Comment on above: Order Comment: No: D o not add to previous draw Performed By: #### 8 0109 #### [facility] [address] [place] [address], [place] Hemoglobin (Bld) [Mass/Vol] 9.0 g/dL Low 12.0-15.0 The [facility] Comment on above: Order Comment: No: D o not add to previous draw Performed By: #### 8 3189 #### [facility] [address] [place] [address], [place] MCH (RBC) [Entitic mass] 31.0 pg Normal 27.0-33.0 The [facility] Comment on above: Order Comment: No: D o not add to previous draw Performed By: #### 8 4830 #### [facility] [address] [place] [address], [facility] MCHC (RBC) [Mass/Vol] 30.8 g/dL Low 32.0-35.0 The [facility] Comment on above: Order Comment: No: D o not add to previous draw Performed By: #### 8 5499 #### [facility] [address] [place] [address], [facility] MCV (RBC) [Entitic vol] 100.7 fL High 82.0-98.0 The [facility] Comment on above: Order Comment: No: D o not add to previous draw Performed By: #### 8 5499 #### [facility] [address] [place] [address], [facility] Nucleated RBC/100 WBC (Bld) [Ratio] 0 % Normal 0-0 The [facility] Comment on above: Order Comment: No: D o not add to previous draw Performed By: #### 8 5499 #### [facility] [address] [place] [address], [facility] PLAT CNT 148 10*3/uL Low 150-400 [facility] Comment on above: Order Comment: No: D o not add to previous draw Performed By: #### 8 5499 #### [facility] [address] [place] [address], [facility] RBC (Bld) [#/Vol] 2.90 10*6/uL Low 3.80-5.00 The [facility] Comment on above: Order Comment: No: D o not add to previous draw Performed By: #### 8 5499 #### [facility] [address] [place] [address], [facility] WBC (Bld) [#/Vol] 22.15 10*3/uL High 4.00-10.60 The [facility] Comment on above: Order Comment: No: D o not add to previous draw Performed By: #### 8 5499 #### [facility] [address] [place] [address], [facility] MAGNESIUM BLOODon 04-13-2022 Magnesium [Mass/Vol] 1.7 mg/dL Low 1.9-2.7 The [facility] Comment on above: Order Comment: Bleed , altereed mental status Performed By: #### 4 1000, 23201, 43330 ####[facility] [place] [address], [place] PHOSPHORUS BLOODon Phosphate [Mass/Vol] 4.7 mg/dL Normal 2.5-5.0 The [facility] Comment on above: Order Comment: Bleed , altereed mental status Performed By: #### 4 1000, 14156, 20835 ####[facility] [place] [address], [place] POC GLUCOSE LABon 04-13-2022 Glucose [Mass/Vol] 119 mg/dL High 70-100 [facility] Comment on above: Performed By: #### 8 5499 #### [facility] [address] [place] [address], [place] Glucose [Mass/Vol] 116 mg/dL High 70-100 [facility] Comment on above: Performed By: #### 8 5499 #### [facility] [address] [place] [address], [place] Glucose [Mass/Vol] 129 mg/dL High 70-100 [facility] Comment on above: Performed By: #### 8 5499 #### [facility] [address] [place] [address], [place] Glucose [Mass/Vol] 109 mg/dL High 70-100 [facility] Comment on above: Performed By: #### 8 5499 ####[facility] [place] [address], [place] POTASSIUM BLOODon 04-13-2022 Potassium [Moles/Vol] 4.7 mmol/L Normal 3.5-5.1 The [facility] Comment on above: Order Comment: No: D o not add to previous draw Performed By: #### 2 2706 #### [facility] [address] [place] [address], [facility] BASIC METABOLIC PANELon 05-2 Calcium [Mass/Vol] 8.5 mg/dL Low 8.6-10.3 [facility] Comment on above: Order Comment: Bleed , altereed mental status Performed By: #### 1 0070, , 97563 ####[facility] [place] [address], [facility] Chloride [Moles/Vol] 106 mmol/L Normal 98-107 The [facility] Comment on above: Order Comment: Bleed , altereed mental status Performed By: #### 1 0, , 43522 ####[facility] [place] [address], [facility] CO2 [Moles/Vol] 24 mmol/L Normal 21-31 The [facility] Comment on above: Order Comment: Bleed , altereed mental status Performed By: #### 1 0, 24215, 97823 ####[facility] [place] [address], [facility] Creatinine [Mass/Vol] 1.34 mg/dL High 0.60-1.20 The [facility] Comment on above: Order Comment: Bleed , altereed mental status Performed By: #### 1 0, 86337, 51655 ####[facility] [place] [address], [facility] eGFR- 46 ml/min/1.73sq m Abnormal >60 [facility] Comment on above: Order Comment: Bleed , altereed mental status Result Comment: Calc ulation may not be valid for patients over 70 years Performed By: #### 1 0, 88633, 54927 ####[facility] [place] [address], [facility] eGFR- non- 38 ml/min/1.73sq m Abnormal >60 [facility] Comment on above: Order Comment: Bleed , altereed mental status Result Comment: Calc ulation may not be valid for patients over 70 years Performed By: #### 1 0070, 67818, 93628 ####[facility] [address], [facility] Glucose [Mass/Vol] 83 mg/dL Normal 70-100 [facility] Comment on above: Order Comment: Bleed , altereed mental status Performed By: #### 1 0070, 11479, 40385 ####[facility] [place] [address], [facility] Potassium [Moles/Vol] 4.5 mmol/L Normal 3.5-5.1 The [facility] Comment on above: Order Comment: Bleed , altereed mental status Performed By: #### 1 0, 83435, 73251 ####[facility] [place] [address], [facility] Sodium [Moles/Vol] 137 mmol/L Normal 136-145 [facility] Comment on above: Order Comment: Bleed , altereed mental status Performed By: #### 1 0, 54498, 85915 ####[facility] [place] [address], [facility] Urea nitrogen [Mass/Vol] 25 mg/dL Normal 7-25 The [facility] Comment on above: Order Comment: Bleed , altereed mental status Performed By: #### 1 0070, 94976, 11878 ####[facility] [place] [address], [facility] CBC COMPLETE BLOOD COUNTon 0 - Erythrocyte distribution width (RBC) [Ratio] 19.9 % High 11.5-15.0 The [facility] Comment on above: Order Comment: No: D o not add to previous draw Performed By: #### 8 5499 #### [facility] [address] [place] [address], [facility] Hematocrit (Bld) [Volume fraction] 28.9 % Low 36.0-45.0 The [facility] Comment on above: Order Comment: No: D o not add to previous draw Performed By: #### 8 5499 #### [facility] [address] [place] [address], [facility] Hemoglobin (Bld) [Mass/Vol] 8.7 g/dL Low 12.0-15.0 The [facility] Comment on above: Order Comment: No: D o not add to previous draw Performed By: #### 8 5499 #### [facility] [address] MCH (RBC) [Entitic mass] 30.1 pg Normal 27.0-33.0 The [facility] Comment on above: Order Comment: No: D o not add to previous draw Performed By: #### 8 5499 #### [facility] [address] [place] [address], [facility] MCHC (RBC) [Mass/Vol] 30.1 g/dL Low 32.0-35.0 The [facility] Comment on above: Order Comment: No: D o not add to previous draw Performed By: #### 8 5499 #### [facility] [address] [place] [address], [facility] MCV (RBC) [Entitic vol] 100.0 fL High 82.0-98.0 The [facility] Comment on above: Order Comment: No: D o not add to previous draw Performed By: #### 8 5499 #### [facility] [address] [place] [address], [facility] Nucleated RBC/100 WBC (Bld) [Ratio] 0 % Normal 0-0 The [facility] Comment on above: Order Comment: No: D o not add to previous draw Performed By: #### 8 5499 #### [facility] [address] [place] [address], [facility] PLAT CNT 186 10*3/uL Normal 150-400 [facility] Comment on above: Order Comment: No: D o not add to previous draw Performed By: #### 8 5499 #### [facility] [address] [place] [address], [facility] RBC (Bld) [#/Vol] 2.89 10*6/uL Low 3.80-5.00 [facility] Comment on above: Order Comment: No: D o not add to previous draw Performed By: #### 8 5499 #### [facility] [address] [place] [address], [facility] WBC (Bld) [#/Vol] 21.99 10*3/uL High 4.00-10.60 [facility] Comment on above: Order Comment: No: D o not add to previous draw Performed By: #### 8 5499 #### [facility] [address] [place] [address], [facility] LIVER BATTERYon 04-12-2022 Albumin [Mass/Vol] 3.0 g/dL Low 3.5-5.7 [facility] Comment on above: Order Comment: Bleed , altereed mental status Performed By: #### 1 0, 13308, 10353 ####[facility] [place] [address], [facility] ALKALINE PHOSPH 87 IU/L Normal 34-104 [facility] Comment on above: Order Comment: Bleed , altereed mental status Performed By: #### 1 0, 54980, 46459 ####[facility] [address], [facility] ALT [Catalytic activity/Vol] 7 U/L Normal 7-52 The [facility] Comment on above: Order Comment: Bleed , altereed mental status Performed By: #### 1 0070, 62367, 10311 ####[facility] AST [Catalytic activity/Vol] 11 U/L Low 13-39 The [facility] Comment on above: Order Comment: Bleed , altereed mental status Performed By: #### 1 0070, 25014, 59088 ####[facility] [place] [address], [facility] Bilirubin [Mass/Vol] 0.8 mg/dL Normal 0.3-1.0 The [facility] Comment on above: Order Comment: Bleed , altereed mental status Performed By: #### 1 0070, 11999, 52355 ####[facility] Bilirubin.direct [Mass/Vol] 0.2 mg/dL Normal 0.0-0.2 The [facility] Comment on above: Order Comment: Bleed , altereed mental status Performed By: #### 1 0, 58833, 36380 ####[facility] [place] [address], [facility] Protein [Mass/Vol] 6.0 g/dL Normal 6.0-8.3 [facility] Comment on above: Order Comment: Bleed , altereed mental status Performed By: #### 1 0, 34331, 44709 ####[facility] [place] [address], [facility] MAGNESIUM BLOODon 04-12-2022 Magnesium [Mass/Vol] 1.9 mg/dL Normal 1.9-2.7 The [facility] Comment on above: Order Comment: Bleed , altereed mental status Performed By: #### 1 0070, 49254, 69501 ####[facility] [place] [address], [facility] Operative Reporton Operative Report MR#: [id number] # [facility] Pt. Name: María Elena Tafoya Room #: CCCI Discharge Date: Birthdate: 1940 OPERATIVE REPORT DATE OF SURGERY: 04/12/2022 SURGEON: Sharla Lizama MD Operative report: Laparoscopic cholecystectomy Location: [facility] main or Preoperative diagnosis: Gallstone pancreatitis Postoperative diagnosis: Gallstone pancreatitis Operation performed: Laparoscopic cholecystectomy Surgeon: Sharla Lizama MD Train Announcer: Dillon Thomas MD (resident pgy5) Estimated blood [...] Lizama MD Date Trans: 04/12/2022 05:18 P/ [id number] cc: Bennie Albright M.D. [address] [facility] [id number] Normal The [facility] Operative Report MR#: [id number] I [facility] Pt. Name: María Elena Tafoya Room #: [id number] Discharge Date: Birthdate: 1940 OPERATIVE REPORT DATE OF SURGERY: 04/12/2022 SURGEON: Sharla Lizama MD Operative report: Laparoscopic cholecystectomy Location: [facility] main or Preoperative diagnosis: Gallstone pancreatitis Postoperative diagnosis: Gallstone pancreatitis Operation performed: Laparoscopic cholecystectomy Surgeon: Sharla Lizama MD Train Announcer: Dillon Thomas MD (resident pgy5) Estimated blood [...] Lizama MD Date Trans: 04/12/2022 05:18 P/ [id number] cc: Bennie Albright M.D. [address] [facility] [id number] Normal The [facility] POC GLUCOSE LABon 04-12-2022 Glucose [Mass/Vol] 122 mg/dL High 70-100 [facility] Comment on above: Performed By: #### 8 5499 #### [facility] [address] [place] [address], [facility] Glucose [Mass/Vol] 167 mg/dL High 70-100 [facility] Comment on above: Performed By: #### 8 5499 ####[facility] [place] [address], [facility] Glucose [Mass/Vol] 105 mg/dL High 70-100 [facility] Comment on above: Performed By: #### 3 0313 #### [facility] [address] [facility] [place] [address], [facility] Glucose [Mass/Vol] 111 mg/dL High 70-100 [facility] Comment on above: Performed By: #### 8 5499 ####[facility] [facility] [place] [address], [facility] Glucose [Mass/Vol] 109 mg/dL High 70-100 [facility] Comment on above: Performed By: #### 3 0313 #### [facility] [address] POC SARS COV2 IDon 2 SARS-CoV-2 (COVID-19) RNA MATTHEW+probe Ql (Unsp spec) Negative Normal NEGATIVE The [facility] Comment on above: Result Comment: ID N [...] Accreditation. Performed By: #### 8 5499 #### [facility] [address] [place] [address], [facility] BASIC METABOLIC PANELon 05-2 Calcium [Mass/Vol] 8.3 mg/dL Low 8.6-10.3 [facility] Comment on above: Order Comment: No: D o not add to previous draw Performed By: #### 8 [id number] #### [facility] [address] [place] [address], [place] Chloride [Moles/Vol] 106 mmol/L Normal 98-107 [facility] Comment on above: Order Comment: No: D o not add to previous draw Performed By: #### 8 [id number] #### [facility] [address] [place] [address], [place] CO2 [Moles/Vol] 23 mmol/L Normal 21-31 [facility] Comment on above: Order Comment: No: D o not add to previous draw Performed By: #### 8 [id number] #### [facility] [address] [place] [address], [facility] Creatinine [Mass/Vol] 1.21 mg/dL High 0.60-1.20 [facility] [place] Comment on above: Order Comment: No: D o not add to previous draw Performed By: #### 8 [id number] #### [facility] [address] [place] [address], [facility] eGFR- 51 ml/min/1.73sq m Abnormal >60 The [facility] Comment on above: Order Comment: No: D o not add to previous draw Result Comment: Calc ulation may not be valid for patients over 70 years Performed By: #### 8 [id number] #### [facility] [address] [place] [id number], [facility] eGFR- non- 42 ml/min/1.73sq m Abnormal >60 [facility] Comment on above: Order Comment: No: D o not add to previous draw Result Comment: Calc ulation may not be valid for patients over 70 years Performed By: #### 8 [id number] #### [facility] [address] [place] [address], [place] Glucose [Mass/Vol] 91 mg/dL Normal 70-100 The [facility] Comment on above: Order Comment: No: D o not add to previous draw Performed By: #### 8 [id number] #### [facility] [address] [place] [address], [facility] Potassium [Moles/Vol] 4.5 mmol/L Normal 3.5-5.1 [facility] Comment on above: Order Comment: No: D o not add to previous draw Performed By: #### 8 [id number] #### [facility] [address] [place] [address], [place] Sodium [Moles/Vol] 138 mmol/L Normal 136-145 [facility] Comment on above: Order Comment: No: D o not add to previous draw Performed By: #### 8 [id number] #### [facility] [address] [place] [address], [facility] Urea nitrogen [Mass/Vol] 22 mg/dL Normal 7-25 [facility] Comment on above: Order Comment: No: D o not add to previous draw Performed By: #### 8 [id number] #### [facility] [address] [place] [address], [facility] CBC COMPLETE BLOOD COUNTon 0 04-11-2022 Erythrocyte distribution width (RBC) [Ratio] 19.6 % High 11.5-15.0 [facility] [place] Comment on above: Order Comment: No: D o not add to previous draw Performed By: #### 5 [id number] #### [facility] [address] [place] [address], [place] Hematocrit (Bld) [Volume fraction] 29.5 % Low 36.0-45.0 [facility] Comment on above: Order Comment: No: D o not add to previous draw Performed By: #### 5 [id number] #### [facility] [address] [place] [address], [facility] Hemoglobin (Bld) [Mass/Vol] 9.2 g/dL Low 12.0-15.0 [facility] Comment on above: Order Comment: No: D o not add to previous draw Performed By: #### 5 [id number] #### [facility] [address] [place] [address], [facility] MCH (RBC) [Entitic mass] 31.0 pg Normal 27.0-33.0 [facility] Comment on above: Order Comment: No: D o not add to previous draw Performed By: #### 5 [id number] #### [facility] [address] [place] [address], [facility] MCHC (RBC) [Mass/Vol] 31.2 g/dL Low 32.0-35.0 [facility] Comment on above: Order Comment: No: D o not add to previous draw Performed By: #### 5 [id number] #### [facility] [address] [facility] [place] [address], [facility] MCV (RBC) [Entitic vol] 99.3 fL High 82.0-98.0 [facility] Comment on above: Order Comment: No: D o not add to previous draw Performed By: #### 5 [id number] #### [facility] [address] [facility]. [address] Nucleated RBC/100 WBC (Bld) [Ratio] 0 % Normal 0-0 [facility] Comment on above: Order Comment: No: D o not add to previous draw Performed By: #### 5 [id number] #### [facility] [address] [place] [address], [facility] PLAT CNT 277 10*3/uL Normal 150-400 [facility] Comment on above: Order Comment: No: D o not add to previous draw Performed By: #### 5 [id number] #### [facility] [address] [place] [address], [facility] RBC (Bld) [#/Vol] 2.97 10*6/uL Low 3.80-5.00 [facility] Comment on above: Order Comment: No: D o not add to previous draw Performed By: #### 5 [id number] #### [facility] [address] [place] [address], [facility] WBC (Bld) [#/Vol] 20.81 10*3/uL High 4.00-10.60 [facility] Comment on above: Order Comment: No: D o not add to previous draw Performed By: #### 5 [id number] #### [facility] [address] [place] [id number], [facility] LIVER BATTERYon 04-11-2022 Albumin [Mass/Vol] 3.1 g/dL Low 3.5-5.7 [facility] Comment on above: Order Comment: No: D o not add to previous draw Performed By: #### 8 [id number] #### [facility] [address] [place] [address], [facility] ALKALINE PHOSPH 92 IU/L Normal 34-104 The [facility] Comment on above: Order Comment: No: D o not add to previous draw Performed By: #### 8 [id number] #### [facility] [address] [place] [address], [facility] ALT [Catalytic activity/Vol] 7 U/L Normal 7-52 [facility] Comment on above: Order Comment: No: D o not add to previous draw Performed By: #### 8 [id number] #### [facility] [address] [place] [id number], [facility] AST [Catalytic activity/Vol] 9 U/L Low 13-39 [facility] [place] Comment on above: Order Comment: No: D o not add to previous draw Performed By: #### 8 [id number] #### [facility] [address] [place] [address], [place] Bilirubin [Mass/Vol] 0.8 mg/dL Normal 0.3-1.0 [facility] Comment on above: Order Comment: No: D o not add to previous draw Performed By: #### 8 [id number] #### [facility] [address] [place] [address], [place] Bilirubin.direct [Mass/Vol] 0.3 mg/dL High 0.0-0.2 [facility] Comment on above: Order Comment: No: D o not add to previous draw Performed By: #### 8 [id number] #### [facility] [address] [place] [address], [place] Protein [Mass/Vol] 5.7 g/dL Low 6.0-8.3 [facility] Comment on above: Order Comment: No: D o not add to previous draw Performed By: #### 8 [id number] #### [facility] [address] [place] [address], [place] MAGNESIUM BLOODon 04-11-2022 Magnesium [Mass/Vol] 1.7 mg/dL Low 1.9-2.7 [facility] Comment on above: Order Comment: No: D o not add to previous draw Performed By: #### 8 [id number] #### [facility] [address] [place] [address], [place] POC GLUCOSE LABon 04-11-2022 Glucose [Mass/Vol] 143 mg/dL High 70-100 [facility] Comment on above: Performed By: #### 8 [id number] #### [facility] [address] [place] [address], [place] Glucose [Mass/Vol] 142 mg/dL High 70-100 [facility] Comment on above: Performed By: #### 8 [id number] ####[facility] [place] [address], [facility] Glucose [Mass/Vol] 125 mg/dL High 70-100 The [facility] Comment on above: Performed By: #### 8 [id number] #### [facility] [address] [place] [address], [place] Glucose [Mass/Vol] 113 mg/dL High 70-100 [facility] Comment on above: Performed By: #### 3 0313 #### [facility] [address] [place] [address], [place] URINE SMITH STAIN/EOSon EOSINOPHIL SMEAR NONE SEEN Normal NSN The [facility] Comment on above: Order Comment: No: D o not add to previous draw [place] Normal The [facility] Comment on above: Order Comment: No: D o not add to previous draw Result Comment: Test Performed by [facility] [address] [place] [id number] - Released 04/11/2022 22:02 BASIC METABOLIC PANELon 05-2 Calcium [Mass/Vol] 8.3 mg/dL Low 8.6-10.3 The [facility] Comment on above: Order Comment: No: D o not add to previous draw Performed By: #### 8 [id number] #### [facility] [address] [place] [address], [place] Chloride [Moles/Vol] 107 mmol/L Normal 98-107 [facility] [place] Comment on above: Order Comment: No: D o not add to previous draw Performed By: #### 8 [id number] #### [facility] [address] [place] [address], [place] CO2 [Moles/Vol] 23 mmol/L Normal 21-31 The [facility] Comment on above: Order Comment: No: D o not add to previous draw Performed By: #### 8 [id number] #### [facility] [address] [place] [address], [place] Creatinine [Mass/Vol] 1.40 mg/dL High 0.60-1.20 [facility] [place] Comment on above: Order Comment: No: D o not add to previous draw Performed By: #### 8 [id number] #### [facility] [address] [place] [address], [facility] eGFR- 44 ml/min/1.73sq m Abnormal >60 [facility] Comment on above: Order Comment: No: D o not add to previous draw Result Comment: Calc ulation may not be valid for patients over 70 years Performed By: #### 8 [id number] #### [facility] [address] [place] [address], [facility] eGFR- non- 36 ml/min/1.73sq m Abnormal >60 [facility] Comment on above: Order Comment: No: D o not add to previous draw Result Comment: Calc ulation may not be valid for patients over 70 years Performed By: #### 8 [id number] #### [facility] [address] [place] [address], [place] Glucose [Mass/Vol] 101 mg/dL High 70-100 The [facility] Comment on above: Order Comment: No: D o not add to previous draw Performed By: #### 8 [id number] #### [facility] [address] [place] [address], [place] Potassium [Moles/Vol] 4.1 mmol/L Normal 3.5-5.1 [facility] Comment on above: Order Comment: No: D o not add to previous draw Performed By: #### 8 [id number] #### [facility] [address] [place] [address], [place] Sodium [Moles/Vol] 138 mmol/L Normal 136-145 [facility] Comment on above: Order Comment: No: D o not add to previous draw Performed By: #### 8 [id number] #### [facility] [address] [place] [address], [place] Urea nitrogen [Mass/Vol] 25 mg/dL Normal 7-25 [facility] Comment on above: Order Comment: No: D o not add to previous draw Performed By: #### 8 [id number] #### [facility] [address] CBC COMPLETE BLOOD COUNTon 0 - Erythrocyte distribution width (RBC) [Ratio] 19.9 % High 11.5-15.0 [facility] Comment on above: Order Comment: No: D o not add to previous draw Performed By: #### 5 [id number] #### [facility] [address] Hematocrit (Bld) [Volume fraction] 29.1 % Low 36.0-45.0 [facility] Comment on above: Order Comment: No: D o not add to previous draw Performed By: #### 5 [id number] #### [facility] [address] Hemoglobin (Bld) [Mass/Vol] 9.1 g/dL Low 12.0-15.0 [facility] Comment on above: Order Comment: No: D o not add to previous draw Performed By: #### 5 [id number] #### [facility] [address] [place] [address], [facility] MCH (RBC) [Entitic mass] 30.6 pg Normal 27.0-33.0 [facility] Comment on above: Order Comment: No: D o not add to previous draw Performed By: #### 5 [id number] #### [facility] [address] [facility] [place] [address], [facility] MCHC (RBC) [Mass/Vol] 31.3 g/dL Low 32.0-35.0 [facility] Comment on above: Order Comment: No: D o not add to previous draw Performed By: #### 5 [id number] #### [facility] [address] [place] [address], [facility] MCV (RBC) [Entitic vol] 98.0 fL Normal 82.0-98.0 [facility] Comment on above: Order Comment: No: D o not add to previous draw Performed By: #### 5 [id number] #### [facility] [address] [place] [address], [facility] Nucleated RBC/100 WBC (Bld) [Ratio] 0 % Normal 0-0 [facility] Comment on above: Order Comment: No: D o not add to previous draw Performed By: #### 5 [id number] #### [facility] [address] [place] [address], [facility] PLAT CNT 281 10*3/uL Normal 150-400 [facility] Comment on above: Order Comment: No: D o not add to previous draw Performed By: #### 5 [id number] #### [facility] [address] [place] [address], [facility] RBC (Bld) [#/Vol] 2.97 10*6/uL Low 3.80-5.00 [facility] Comment on above: Order Comment: No: D o not add to previous draw Performed By: #### 5 [id number] #### [facility] [address] [facility] [place] [address], [facility] WBC (Bld) [#/Vol] 19.64 10*3/uL High 4.00-10.60 [facility] [place] Comment on above: Order Comment: No: D o not add to previous draw Performed By: #### 5 [id number] #### [facility] [address] [facility] [place] [address], [facility] MAGNESIUM BLOODon 04-10-2022 Magnesium [Mass/Vol] 1.6 mg/dL Low 1.9-2.7 The [facility] Comment on above: Order Comment: No: D o not add to previous draw Performed By: #### 8 [id number] #### [facility] [address] [place] [address], [place] POC GLUCOSE LABon 04-10-2022 Glucose [Mass/Vol] 154 mg/dL High 70-100 The [facility] Comment on above: Performed By: #### 8 [id number] #### [facility] [address] [place] [address], [place] Glucose [Mass/Vol] 120 mg/dL High 70-100 [facility] Comment on above: Performed By: #### 3 0313 #### [facility] [address] [place] [address], [place] Glucose [Mass/Vol] 131 mg/dL High 70-100 [facility] Comment on above: Performed By: #### 8 [id number] ####[facility] [place] [address], [place] Glucose [Mass/Vol] 114 mg/dL High 70-100 [facility] Comment on above: Performed By: #### 8 [id number] #### [facility] [address] [place] [address], [place] BASIC METABOLIC PANELon 05 Calcium [Mass/Vol] 8.7 mg/dL Normal 8.6-10.3 [facility] Comment on above: Order Comment: No: D o not add to previous draw Performed By: #### 8 [id number] #### [facility] [address] [place] [address], [place] Chloride [Moles/Vol] 104 mmol/L Normal 98-107 The [facility] Comment on above: Order Comment: No: D o not add to previous draw Performed By: #### 8 [id number] #### [facility] [address] [place] [address], [place] CO2 [Moles/Vol] 24 mmol/L Normal 21-31 The [facility] Comment on above: Order Comment: No: D o not add to previous draw Performed By: #### 8 [id number] #### [facility] [address] [place] [address], [place] Creatinine [Mass/Vol] 1.29 mg/dL High 0.60-1.20 [facility] Comment on above: Order Comment: No: D o not add to previous draw Performed By: #### 8 [id number] #### [facility] [address] [place] [address], [facility] eGFR- 48 ml/min/1.73sq m Abnormal >60 [facility] Comment on above: Order Comment: No: D o not add to previous draw Result Comment: Calc ulation may not be valid for patients over 70 years Performed By: #### 8 [id number] #### [facility] [address] [place] [address], [facility] eGFR- non- 39 ml/min/1.73sq m Abnormal >60 [facility] Comment on above: Order Comment: No: D o not add to previous draw Result Comment: Calc ulation may not be valid for patients over 70 years Performed By: #### 8 [id number] #### [facility] [address] [place] [address], [place] Glucose [Mass/Vol] 90 mg/dL Normal 70-100 [facility] Comment on above: Order Comment: No: D o not add to previous draw Performed By: #### 8 [id number] #### [facility] [address] [place] [address], [place] Potassium [Moles/Vol] 4.3 mmol/L Normal 3.5-5.1 [facility] Comment on above: Order Comment: No: D o not add to previous draw Performed By: #### 8 [id number] #### [facility] [address] [place] [address], [place] Sodium [Moles/Vol] 137 mmol/L Normal 136-145 The [facility] Comment on above: Order Comment: No: D o not add to previous draw Performed By: #### 8 [id number] #### [facility] [address] [place] [address], [facility] Urea nitrogen [Mass/Vol] 16 mg/dL Normal 7-25 [facility] Comment on above: Order Comment: No: D o not add to previous draw Performed By: #### 8 [id number] #### [facility] [address] [place] [address], [facility] CBC COMPLETE BLOOD COUNTon 0 - Erythrocyte distribution width (RBC) [Ratio] 19.4 % High 11.5-15.0 [facility] Comment on above: Order Comment: No: D o not add to previous draw Performed By: #### 8 [id number] #### [facility] [address] [place] [address], [facility] Hematocrit (Bld) [Volume fraction] 29.9 % Low 36.0-45.0 [facility] Comment on above: Order Comment: No: D o not add to previous draw Performed By: #### 8 [id number] #### [facility] [address] [place] [address], [facility] Hemoglobin (Bld) [Mass/Vol] 9.4 g/dL Low 12.0-15.0 [facility] Comment on above: Order Comment: No: D o not add to previous draw Performed By: #### 8 [id number] #### [facility] [address] [place] [address], [facility] MCH (RBC) [Entitic mass] 30.4 pg Normal 27.0-33.0 [facility] Comment on above: Order Comment: No: D o not add to previous draw Performed By: #### 8 [id number] #### [facility] [address] [place] [address], [place] MCHC (RBC) [Mass/Vol] 31.4 g/dL Low 32.0-35.0 [facility] Comment on above: Order Comment: No: D o not add to previous draw Performed By: #### 8 [id number] #### [facility] [address] [place] [address], [facility] MCV (RBC) [Entitic vol] 96.8 fL Normal 82.0-98.0 [facility] Comment on above: Order Comment: No: D o not add to previous draw Performed By: #### 8 [id number] #### [facility] [address] [place] [address], [facility] Nucleated RBC/100 WBC (Bld) [Ratio] 0 % Normal 0-0 [facility] Comment on above: Order Comment: No: D o not add to previous draw Performed By: #### 8 [id number] #### [facility] [address] [place] [address], [facility] PLAT CNT 325 10*3/uL Normal 150-400 [facility] Comment on above: Order Comment: No: D o not add to previous draw Performed By: #### 8 [id number] #### [facility] [address] [facility] [place] [address], [facility] RBC (Bld) [#/Vol] 3.09 10*6/uL Low 3.80-5.00 The [facility] Comment on above: Order Comment: No: D o not add to previous draw Performed By: #### 8 [id number] #### [facility] [address] [place] [address], [place] WBC (Bld) [#/Vol] 21.91 10*3/uL High 4.00-10.60 The [facility] Comment on above: Order Comment: No: D o not add to previous draw Performed By: #### 8 [id number] #### [facility] [address] [place] [address], [place] CREATININE URINE RANDOMon Creatinine (U) [Mass/Vol] 40.0 mg/dL Normal The [facility] [facility] Comment on above: Order Comment: The A ptima SARS-CoV-2 assay is a nucleic acid amplification test intended for the qualitative detection of RNA from SARS-CoV-2 isolated and purified from nasopharyngeal (ASSOCIATE ACCOUNT EXECUTIVE),oropharyngeal (OP), nasal swab, sputum, and bronchoalveolar lavage (BAL) specimens from patients with signs and symptoms of infection who are suspected of COVID-19. Results are for the identification of SARS-CoV-2 RNA. The SARS-CoV-2 RNA is generally detectable during the acute phase of infection. The Aptima SARS-CoV-2 Assay on the [employer] Fusion system is intended for use by laboratory personnel specifically instructed and trained in the operation of the [employer] system. The Aptima SARS-CoV-2 assay is [...] specimens Performed By: #### 3 [id number] #### [facility] [address] [place] [address], [facility] MAGNESIUM BLOODon 04-09-2022 Magnesium [Mass/Vol] 1.9 mg/dL Normal 1.9-2.7 [facility] Comment on above: Order Comment: No: D o not add to previous draw Performed By: #### 8 [id number] #### [facility] [address] [place] [address], [facility] OSMOLALITY URINEon OSMOLALITY 317 mOsm/kg Normal 50-1400 The [facility] Comment on above: Order Comment: The A [employer]ima SARS-CoV-2 assay is a nucleic acid amplification test intended for the qualitative detection of RNA from SARS-CoV-2 isolated and purified from nasopharyngeal (ASSOCIATE ACCOUNT EXECUTIVE),oropharyngeal (OP), nasal swab, sputum, and bronchoalveolar lavage (BAL) specimens from patients with signs and symptoms of infection who are suspected of COVID-19. Results are for the identification of SARS-CoV-2 RNA. The SARS-CoV-2 RNA is generally detectable during the acute phase of infection. The [employer]ptima SARS-CoV-2 Assay on the [employer] system is intended for use by laboratory personnel specifically instructed and trained in the operation of the [employer] system. The Apt[employer] SARS-CoV-2 assay is [...] information. Performed By: #### 3 [id number] #### [facility] [address] POC GLUCOSE LABon 04-09-2022 Glucose [Mass/Vol] 159 mg/dL High 70-100 The [facility] Comment on above: Performed By: #### 8 [id number] #### [facility] [address] [facility] [place] [address], [facility] Glucose [Mass/Vol] 141 mg/dL High 70-100 [facility] Comment on above: Performed By: #### 8 [id number] #### [facility] [address] [facility] [place] [address], [facility] Glucose [Mass/Vol] 337 mg/dL High 70-100 [facility] Comment on above: Performed By: #### 8 [id number] #### [facility] [address] [facility] [place] [address], [facility] Glucose [Mass/Vol] 113 mg/dL High 70-100 [facility] Comment on above: Order Comment: NOTE: Result Checked Performed By: #### 3 0313 #### [facility] SODIUM URINE RANDOMon 2021 Sodium (U) [Moles/Vol] 105 mmol/L Normal [facility] Comment on above: Order Comment: The A ptima SARS-CoV-2 assay is a nucleic acid amplification test intended for the qualitative detection of RNA from SARS-CoV-2 isolated and purified from nasopharyngeal (ASSOCIATE ACCOUNT EXECUTIVE),oropharyngeal (OP), nasal swab, sputum, and bronchoalveolar lavage (BAL) specimens from patients with signs and symptoms of infection who are suspected of COVID-19. Results are for the identification of SARS-CoV-2 RNA. The SARS-CoV-2 RNA is generally detectable during the acute phase of infection. The Aptima SARS-CoV-2 Assay on the [employer] Fusion system is intended for use by laboratory personnel specifically instructed and trained in the operation of the [employer] [place] [employer] Fusion system. The Aptima SARS-CoV-2 assay is [...] specimens Performed By: #### 3 [id number] #### [address] UA,MICROSCOPIC REQUIREDon Appearance (U) CLEAR Normal CLEAR The [facility] Comment on above: Order Comment: No: D o not add to previous draw Performed By: #### 8 [id number] #### [place] [address], [facility] Bilirubin Ql (U) Negative Normal NEGATIVE The [facility] Comment on above: Order Comment: No: D o not add to previous draw Performed By: #### 8 [id number] #### [address] [place] [address], [place] BUDDING YEAST FEW Abnormal NONE SEEN The [facility] Comment on above: Order Comment: No: D o not add to previous draw Performed By: #### 8 [id number] #### [facility] [address] [place] [address], [place] Color (U) YELLOW Normal YELLOW The [facility] Comment on above: Order Comment: No: D o not add to previous draw Performed By: #### 8 [id number] #### [facility] [address] [place] [address], [place] EPIS NONE SEEN Normal FEW,OCC,NONE SEEN The [facility] Comment on above: Order Comment: No: D o not add to previous draw Performed By: #### 8 [id number] #### [facility] [address] [place] [address], [place] Glucose Ql (U) Negative Normal NEGATIVE The [facility] Comment on above: Order Comment: No: D o not add to previous draw Performed By: #### 8 [id number] #### [facility] [address] [place] [address], [place] Hemoglobin Ql (U) SMALL Abnormal NEGATIVE The [facility] Comment on above: Order Comment: No: D o not add to previous draw Performed By: #### 8 [id number] #### [facility] [address] [place] [address], [place] KETONE Negative Normal NEGATIVE The [facility] Comment on above: Order Comment: No: D o not add to previous draw Performed By: #### 8 [id number] #### [facility] [address] [place] [address], [place] LEUK LUIS ANTONIO Negative Normal NEGATIVE The [facility] Comment on above: Order Comment: No: D o not add to previous draw Performed By: #### 8 [id number] #### [facility] [address] [place] [address], [place] Nitrite Ql (U) Negative Normal NEGATIVE The [facility] Comment on above: Order Comment: No: D o not add to previous draw Performed By: #### 8 [id number] #### [facility] [address] [facility]. [address] pH (U) 7.0 [pH] Normal 5.0-8.0 The [facility] Comment on above: Order Comment: No: D o not add to previous draw Performed By: #### 8 [id number] #### [facility] [address] [facility]. [address] Protein Ql (U) Negative Normal NEGATIVE The [facility] Comment on above: Order Comment: No: D o not add to previous draw Performed By: #### 8 [id number] #### [facility] [address] [facility]. [address] RBC 0-2 Abnormal NONE SEEN The [facility] Comment on above: Order Comment: No: D o not add to previous draw Performed By: #### 8 [id number] #### [facility] [address] [facility]. [address] SPEC GRAV 1.008 Low 1.015-1.020 The [facility] Comment on above: Order Comment: No: D o not add to previous draw Performed By: #### 8 [id number] #### [facility] [address] [facility] [place] [address], [facility] WBC UA NONE SEEN Normal NONE SEEN The [facility] Comment on above: Order Comment: No: D o not add to previous draw Performed By: #### 8 [id number] #### [facility] [address] *BLOOD CULTUREon 04-08-2022 *BLOOD CULTURE Clinical Report: (D) Specimen: BLOOD CULTURE Collected: 04/08/2022 18:50 Status: Final Last Updated: 04/14/2022 06:21 CULT RES (Final) No Growth Day 5 Normal The [facility] Comment on above: Performed By: #### 3 0313 #### [facility] [address] [place] [address], [facility] *BLOOD CULTURE Clinical Report: (D) Specimen: BLOOD CULTURE Collected: 04/08/2022 15:33 Status: Final Last Updated: 04/14/2022 06:21 (1) Per denisha Fernandez.labs to be drawn at three CULT RES (Final) No Growth Day 5 Normal The [facility] Comment on above: Order Comment: No: D o not add to previous draw Performed By: #### 5 0608 #### [facility] [address] [place] [address], [facility] BASIC METABOLIC PANELon 03-19 Calcium [Mass/Vol] 8.9 mg/dL Normal 8.6-10.3 [facility] Comment on above: Order Comment: No: D o not add to previous draw Performed By: #### 2 2706 #### [facility] [address] [place] [address], [place] Chloride [Moles/Vol] 105 mmol/L Normal 98-107 The [facility] Comment on above: Order Comment: No: D o not add to previous draw Performed By: #### 2 2706 #### [facility] [address] [place] [address], [place] CO2 [Moles/Vol] 24 mmol/L Normal 21-31 [facility] Comment on above: Order Comment: No: D o not add to previous draw Performed By: #### 2 2706 #### [facility] [address] [place] [address], [place] Creatinine [Mass/Vol] 1.03 mg/dL Normal 0.60-1.20 The [facility] Comment on above: Order Comment: No: D o not add to previous draw Performed By: #### 2 2706 #### [facility] [address] [place] [address], [place] eGFR- non- 51 ml/min/1.73sq m Abnormal >60 The [facility] Comment on above: Order Comment: No: D o not add to previous draw Result Comment: Calc ulation may not be valid for patients over 70 years Performed By: #### 2 2706 #### [facility] [address] [place] [address], [place] GFR/1.73 sq M.predicted among blacks MDRD (S/P/Bld) [Vol rate/Area] mL/min/{1.73_m2} Normal >60 The [facility] Comment on above: Order Comment: No: D o not add to previous draw Result Comment: Calc ulation may not be valid for patients over 70 years Performed By: #### 2 2706 #### [facility] [address] [place] [address], [place] Glucose [Mass/Vol] 113 mg/dL High 70-100 The [facility] Comment on above: Order Comment: No: D o not add to previous draw Performed By: #### 2 2706 #### [facility] [address] [place] [address], [place] Potassium [Moles/Vol] 4.1 mmol/L Normal 3.5-5.1 The [facility] Comment on above: Order Comment: No: D o not add to previous draw Performed By: #### 2 2706 #### [facility] [address] [place] [address], [place] Sodium [Moles/Vol] 136 mmol/L Normal 136-145 The [facility] Comment on above: Order Comment: No: D o not add to previous draw Performed By: #### 2 2706 #### [facility] [address] [place] [address], [place] Urea nitrogen [Mass/Vol] 11 mg/dL Normal 7-25 The [facility] Comment on above: Order Comment: No: D o not add to previous draw Performed By: #### 2 2706 #### [facility] [address] [facility]. [address] CBC W/DIFFon 04-08-2022 ABS IMM GRANS 0.4 10*3/uL High 0.0-0.2 The [facility] Comment on above: Performed By: #### 8 [id number] #### [facility] [address] [facility] [place] [address], [facility] ABS NEUTROPHILS 24.5 10*3/uL High 1.6-7.6 The [facility] Comment on above: Performed By: #### 8 [id number] #### [facility] [address] [facility] [place] [address], [facility] ANISO Moderate Normal The [facility] Comment on above: Performed By: #### 8 [id number] #### [facility] [address] [facility]. [address] Basophils (Bld) [#/Vol] 0.2 10*3/uL Normal 0.0-0.2 The [facility] Comment on above: Performed By: #### 8 [id number] #### [facility] [address] [facility] [place] [address], [facility] Basophils/100 WBC (Bld) 0.6 % Normal 0.0-1.0 The [facility] Comment on above: Performed By: #### 8 [id number] #### [facility] [address] [facility] [place] [address], [facility] Eosinophils (Bld) [#/Vol] 0.0 10*3/uL Normal 0.0-0.5 The [facility] Comment on above: Performed By: #### 8 [id number] #### [facility] [address] [facility] [place] [address], [facility] Eosinophils/100 WBC (Bld) 0.1 % Normal 0.0-6.0 The [facility] Comment on above: Performed By: #### 8 [id number] #### [facility] [address] [facility]. [address] Erythrocyte distribution width (RBC) [Ratio] 19.1 % High 11.5-15.0 The [facility] Comment on above: Performed By: #### 8 [id number] #### [facility] [address] [place] [address], [facility] Hematocrit (Bld) [Volume fraction] 32.3 % Low 36.0-45.0 The [facility] Comment on above: Performed By: #### 8 [id number] #### [facility] [address] [facility] [place] [address], [facility] Hemoglobin (Bld) [Mass/Vol] 10.1 g/dL Low 12.0-15.0 The [facility] Comment on above: Performed By: #### 8 [id number] #### [facility] [address] [place] [address], [facility] IMMATURE GRANS 1.5 % High 0.0-1.0 The [facility] Comment on above: Performed By: #### 8 [id number] #### [facility] [address] [facility] [place] [address], [facility] Lymphocytes (Bld) [#/Vol] 1.5 10*3/uL Normal 1.2-4.0 The [facility] Comment on above: Performed By: #### 8 [id number] #### [facility] [address] [facility] [place] [address], [facility] Lymphocytes/100 WBC (Bld) 5.5 % Low 20.0-45.0 The [facility] Comment on above: Performed By: #### 8 [id number] #### [facility] [address] [facility] [place] [address], [facility] MCH (RBC) [Entitic mass] 30.4 pg Normal 27.0-33.0 The [facility] Comment on above: Performed By: #### 8 [id number] #### [facility] [address] [facility] MCHC (RBC) [Mass/Vol] 31.3 g/dL Low 32.0-35.0 The [facility] Comment on above: Performed By: #### 8 [id number] #### [facility] [address] [place] [address], [facility] MCV (RBC) [Entitic vol] 97.3 fL Normal 82.0-98.0 The [facility] Comment on above: Performed By: #### 8 [id number] #### [facility] [address] [place] [address], [facility] Monocytes (Bld) [#/Vol] 0.6 10*3/uL Normal 0.1-1.0 The [facility] Comment on above: Performed By: #### 8 [id number] #### [facility] [address] [facility] [place] [address], [facility] MONOS 2.1 % Low 5.0-12.0 The [facility] Comment on above: Performed By: #### 8 [id number] #### [facility] [address] [facility] [place] [address], [facility] Neutrophils/100 WBC (Bld) 90.2 % High 40.0-72.0 The [facility] Comment on above: Performed By: #### 8 [id number] #### [facility] [address] [facility] [place] [address], [facility] Nucleated RBC/100 WBC (Bld) [Ratio] 0 % Normal 0-0 The [facility] Comment on above: Performed By: #### 8 [id number] #### [facility] [address] [facility] [place] [address], [facility] PLAT CNT 321 10*3/uL Normal 150-400 The [facility] Comment on above: Performed By: #### 8 [id number] #### [facility] [address] [place] [address], [facility] POIK Slight Normal The [facility] Comment on above: Performed By: #### 8 [id number] #### [facility] [address] [place] [address], [place] POLY Slight Normal The [facility] Comment on above: Performed By: #### 8 [id number] #### [facility] [address] [place] [address], [place] RBC (Bld) [#/Vol] 3.32 10*6/uL Low 3.80-5.00 The [facility] Comment on above: Performed By: #### 8 [id number] #### [facility] [address] [place] [address], [place] WBC (Bld) [#/Vol] 27.12 10*3/uL High 4.00-10.60 The [facility] Comment on above: Performed By: #### 8 [id number] #### [facility] [address] [place] [address], [place] MAGNESIUM BLOODon 04-08-2022 Magnesium [Mass/Vol] 1.4 mg/dL Low 1.9-2.7 The [facility] Comment on above: Order Comment: No: D o not add to previous draw Performed By: #### 2 2706 #### [facility] [address] [place] [address], [place] POC GLUCOSE LABon 04-08-2022 Glucose [Mass/Vol] 129 mg/dL High 70-100 The [facility] Comment on above: Performed By: #### 8 [id number] #### [facility] [address] [place] [address], [place] Glucose [Mass/Vol] 130 mg/dL High 70-100 The [facility] Comment on above: Performed By: #### 5 0608 #### [facility] [address] [place] [address], [place] Glucose [Mass/Vol] 132 mg/dL High 70-100 The [facility] Comment on above: Performed By: #### 8 [id number] #### [facility] [address] [place] [address], [place] Glucose [Mass/Vol] 129 mg/dL High 70-100 The [facility] Comment on above: Performed By: #### 8 [id number] #### [facility] [address] [place] [address], [place] BASIC METABOLIC PANELon 05-2 Calcium [Mass/Vol] 7.8 mg/dL Low 8.6-10.3 The [facility] Comment on above: Order Comment: No: D o not add to previous draw Performed By: #### 8 [id number] #### [facility] [address] [place] [address], [place] Chloride [Moles/Vol] 107 mmol/L Normal 98-107 The [facility] Comment on above: Order Comment: No: D o not add to previous draw Performed By: #### 8 [id number] #### [facility] [address] [place] [address], [place] CO2 [Moles/Vol] 26 mmol/L Normal 21-31 The [facility] Comment on above: Order Comment: No: D o not add to previous draw Performed By: #### 8 [id number] #### [facility] [address] [place] [address], [place] Creatinine [Mass/Vol] 1.14 mg/dL Normal 0.60-1.20 The [facility] Comment on above: Order Comment: No: D o not add to previous draw Performed By: #### 8 [id number] #### [facility] [address] [place] [address], [place] eGFR- 55 ml/min/1.73sq m Abnormal >60 The [facility] Comment on above: Order Comment: No: D o not add to previous draw Result Comment: Calc ulation may not be valid for patients over 70 years Performed By: #### 8 [id number] #### [facility] [address] [place] [address], [facility] eGFR- non- 45 ml/min/1.73sq m Abnormal >60 The [facility] Comment on above: Order Comment: No: D o not add to previous draw Result Comment: Calc ulation may not be valid for patients over 70 years Performed By: #### 8 [id number] #### [facility] [address] [place] [address], [place] Glucose [Mass/Vol] 96 mg/dL Normal 70-100 The [facility] Comment on above: Order Comment: No: D o not add to previous draw Performed By: #### 8 [id number] #### [facility] [address] [place] [address], [facility] Potassium [Moles/Vol] 4.0 mmol/L Normal 3.5-5.1 The [facility] Comment on above: Order Comment: No: D o not add to previous draw Performed By: #### 8 [id number] #### [facility] [address] [place] [address], [place] Sodium [Moles/Vol] 139 mmol/L Normal 136-145 The [facility] Comment on above: Order Comment: No: D o not add to previous draw Performed By: #### 8 [id number] #### [facility] [address] [place] [address], [facility] Urea nitrogen [Mass/Vol] 13 mg/dL Normal 7-25 The [facility] Comment on above: Order Comment: No: D o not add to previous draw Performed By: #### 8 [id number] #### [facility] [address] [place] [address], [facility] CBC COMPLETE BLOOD COUNTon 0 5- Erythrocyte distribution width (RBC) [Ratio] 19.3 % High 11.5-15.0 The [facility] Comment on above: Order Comment: No: D o not add to previous draw Performed By: #### 5 0608 #### [facility] [address] [place] [address], [facility] Hematocrit (Bld) [Volume fraction] 27.9 % Low 36.0-45.0 The [facility] Comment on above: Order Comment: No: D o not add to previous draw Performed By: #### 5 0608 #### [facility] [address] [facility] [place] [address], [facility] Hemoglobin (Bld) [Mass/Vol] 8.4 g/dL Low 12.0-15.0 The [facility] Comment on above: Order Comment: No: D o not add to previous draw Performed By: #### 5 0608 #### [facility] [address] MCH (RBC) [Entitic mass] 29.9 pg Normal 27.0-33.0 The [facility] Comment on above: Order Comment: No: D o not add to previous draw Performed By: #### 5 0608 #### [facility] [address] MCHC (RBC) [Mass/Vol] 30.1 g/dL Low 32.0-35.0 The [facility] Comment on above: Order Comment: No: D o not add to previous draw Performed By: #### 5 0608 #### [facility] [address] [facility]. [address] MCV (RBC) [Entitic vol] 99.3 fL High 82.0-98.0 The [facility] Comment on above: Order Comment: No: D o not add to previous draw Performed By: #### 5 0608 #### [facility] [address] [place] [address], [facility] Nucleated RBC/100 WBC (Bld) [Ratio] 0 % Normal 0-0 The [facility] Comment on above: Order Comment: No: D o not add to previous draw Performed By: #### 5 0608 #### [facility] [address] [place] [address], [facility] PLAT CNT 281 10*3/uL Normal 150-400 The [facility] Comment on above: Order Comment: No: D o not add to previous draw Performed By: #### 5 0608 #### [facility] [address] [place] [address], [facility] RBC (Bld) [#/Vol] 2.81 10*6/uL Low 3.80-5.00 The [facility] Comment on above: Order Comment: No: D o not add to previous draw Performed By: #### 5 0608 #### [facility] [address] [place] [address], [facility] WBC (Bld) [#/Vol] 22.46 10*3/uL High 4.00-10.60 The [facility] Comment on above: Order Comment: No: D o not add to previous draw Performed By: #### 5 0608 #### [facility] [address] [place] [address], [facility] MAGNESIUM BLOODon 04-07-2022 Magnesium [Mass/Vol] 1.7 mg/dL Low 1.9-2.7 The [facility] Comment on above: Order Comment: No: D o not add to previous draw Performed By: #### 8 [id number] #### [facility] [address] [place] [address], [facility] POC GLUCOSE LABon 04-07-2022 Glucose [Mass/Vol] 192 mg/dL High 70-100 The [facility] Comment on above: Performed By: #### 8 [id number] ####[facility] [address], [facility] Glucose [Mass/Vol] 139 mg/dL High 70-100 The [facility] Comment on above: Performed By: #### 8 [id number] #### [facility] [address] [place] [address], [place] Glucose [Mass/Vol] 144 mg/dL High 70-100 The [facility] Comment on above: Performed By: #### 8 [id number] #### [facility] [address] [place] [address], [place] Glucose [Mass/Vol] 111 mg/dL High 70-100 The [facility] Comment on above: Performed By: #### 8 [id number] #### [facility] [address] [place] [address], [place] BASIC METABOLIC PANELon 05-2 0-2021 Calcium [Mass/Vol] 8.2 mg/dL Low 8.6-10.3 The [facility] Comment on above: Order Comment: Bleed , altereed mental status Performed By: #### 0 0071, 97457, 87305, 95732, 99088 ####[facility] [place] [address], [place] Chloride [Moles/Vol] 106 mmol/L Normal 98-107 The [facility] Comment on above: Order Comment: Bleed , altereed mental status Performed By: #### 0 0071, 97057, 47071, 07433, 04313 ####[facility] [place] [address], [place] CO2 [Moles/Vol] 27 mmol/L Normal 21-31 The [facility] Comment on above: Order Comment: Bleed , altereed mental status Performed By: #### 0 0071, 17263, 97883, 71126, 13224 ####[facility] [place] [address], [place] Creatinine [Mass/Vol] 1.07 mg/dL Normal 0.60-1.20 The [facility] Comment on above: Order Comment: Bleed , altereed mental status Performed By: #### 0 0071, 70603, 90948, 58554, 45923 ####[facility] [place] [address], [facility] eGFR- 59 ml/min/1.73sq m Abnormal >60 The [facility] Comment on above: Order Comment: Bleed , altereed mental status Result Comment: Calc ulation may not be valid for patients over 70 years Performed By: #### 0 0071, 84550, 39663, 30327, 37252 ####[facility] [place] [address], [facility] eGFR- non- 49 ml/min/1.73sq m Abnormal >60 The [facility] Comment on above: Order Comment: Bleed , altereed mental status Result Comment: Calc ulation may not be valid for patients over 70 years Performed By: #### 0 0071, 42124, 48331, 59407, 57440 ####[facility] [place] [address], [facility] Glucose [Mass/Vol] 100 mg/dL Normal 70-100 The [facility] Comment on above: Order Comment: Bleed , altereed mental status Performed By: #### 0 0071, 53410, 72722, 70938, 19894 ####[facility] [place] [address], [facility] Potassium [Moles/Vol] 4.0 mmol/L Normal 3.5-5.1 The [facility] [place] Comment on above: Order Comment: Bleed , altereed mental status Performed By: #### 0 0071, 86435, 05450, 00144, 95766 ####[facility] [place] [address], [place] Sodium [Moles/Vol] 139 mmol/L Normal 136-145 The [facility] Comment on above: Order Comment: Bleed , altereed mental status Performed By: #### 0 0071, 75851, 48568, 18444, 56205 ####[facility] Urea nitrogen [Mass/Vol] 15 mg/dL Normal 7-25 The [facility] [place] Comment on above: Order Comment: Bleed , altereed mental status Performed By: #### 0 0071, 50233, 06780, 54620, 92154 ####[facility] [address] BNP (B-TYPE NATRIURETIC PEPT KAELA)on 04-06-2022 Natriuretic peptide B (Bld) [Mass/Vol] 487 pg/mL High 0-100 The [facility] Comment on above: Order Comment: Yes: Add to Previous draw if able Result Comment: Give n the appropriate clinical setting a BNP result of >100 pg/mL indicates congestive heart failure. Performed By: #### 8 [id number] #### [facility] [address] CBC W/DIFFon 04-06-2022 ABS IMM GRANS 0.5 10*3/uL High 0.0-0.2 The [facility] Comment on above: Order Comment: No: D o not add to previous draw Performed By: #### 8 [id number] #### [facility] [address] [place] [address], [facility] ABS NEUTROPHILS 18.4 10*3/uL High 1.6-7.6 The [facility] Comment on above: Order Comment: No: D o not add to previous draw Performed By: #### 8 [id number] #### [facility] [address] [facility] [place] [address], [facility] Basophils (Bld) [#/Vol] 0.1 10*3/uL Normal 0.0-0.2 The [facility] [place] Comment on above: Order Comment: No: D o not add to previous draw Performed By: #### 8 [id number] #### [facility] [address] [facility] [place] [address], [facility] Basophils/100 WBC (Bld) 0.5 % Normal 0.0-1.0 The [facility] [place] Comment on above: Order Comment: No: D o not add to previous draw Performed By: #### 8 [id number] #### [facility] [address] [facility] [place] [address], [facility] Eosinophils (Bld) [#/Vol] 0.0 10*3/uL Normal 0.0-0.5 The [facility] [place] Comment on above: Order Comment: No: D o not add to previous draw Performed By: #### 8 [id number] #### [facility] [address] [place] [address], [facility] Eosinophils/100 WBC (Bld) 0.0 % Normal 0.0-6.0 The [facility] [place] Comment on above: Order Comment: No: D o not add to previous draw Performed By: #### 8 [id number] #### [facility] [address] [place] Erythrocyte distribution width (RBC) [Ratio] 19.4 % High 11.5-15.0 The [facility] [place] Comment on above: Order Comment: No: D o not add to previous draw Performed By: #### 8 [id number] #### [facility] [address] [facility] [place] [address], [facility] Hematocrit (Bld) [Volume fraction] 28.6 % Low 36.0-45.0 The [facility] [place] Comment on above: Order Comment: No: D o not add to previous draw Performed By: #### 8 [id number] #### [facility] [address] [facility] [place] [address], [facility] Hemoglobin (Bld) [Mass/Vol] 8.8 g/dL Low 12.0-15.0 The [facility] [place] Comment on above: Order Comment: No: D o not add to previous draw Performed By: #### 8 [id number] #### [facility] [address] [place] [address], [facility] IMMATURE GRANS 2.3 % High 0.0-1.0 The [facility] Comment on above: Order Comment: No: D o not add to previous draw Performed By: #### 8 [id number] #### [facility] [address] [facility] [place] [address], [facility] Lymphocytes (Bld) [#/Vol] 1.5 10*3/uL Normal 1.2-4.0 The [facility] [place] Comment on above: Order Comment: No: D o not add to previous draw Performed By: #### 8 [id number] #### [facility] [address] [place] [address], [facility] Lymphocytes/100 WBC (Bld) 7.2 % Low 20.0-45.0 The [facility] [place] Comment on above: Order Comment: No: D o not add to previous draw Performed By: #### 8 [id number] #### [facility] [address] [place] [address], [facility] MCH (RBC) [Entitic mass] 30.1 pg Normal 27.0-33.0 The [facility] [place] Comment on above: Order Comment: No: D o not add to previous draw Performed By: #### 8 [id number] #### [facility] [address] [place] [address], [facility] MCHC (RBC) [Mass/Vol] 30.8 g/dL Low 32.0-35.0 The [facility] [place] Comment on above: Order Comment: No: D o not add to previous draw Performed By: #### 8 [id number] #### [facility] [address] [address] [place] [id number], [facility] MCV (RBC) [Entitic vol] 97.9 fL Normal 82.0-98.0 The [facility] [place] Comment on above: Order Comment: No: D o not add to previous draw Performed By: #### 8 [id number] #### [facility] [address] [place] [address], [facility] Monocytes (Bld) [#/Vol] 0.3 10*3/uL Normal 0.1-1.0 The [facility] [place] Comment on above: Order Comment: No: D o not add to previous draw Performed By: #### 8 [id number] #### [facility] [address] [place] [address], [facility] MONOS 1.6 % Low 5.0-12.0 The [facility] [place] Comment on above: Order Comment: No: D o not add to previous draw Performed By: #### 8 [id number] #### [facility] [address] [place] [address], [facility] Neutrophils/100 WBC (Bld) 88.4 % High 40.0-72.0 The [facility] [place] Comment on above: Order Comment: No: D o not add to previous draw Performed By: #### 8 [id number] #### [facility] [address] [place] [address], [facility] Nucleated RBC/100 WBC (Bld) [Ratio] 0 % Normal 0-0 The [facility] [place] Comment on above: Order Comment: No: D o not add to previous draw Performed By: #### 8 [id number] #### [facility] [address] [place] [address], [facility] PLAT CNT 279 10*3/uL Normal 150-400 The [facility] Comment on above: Order Comment: No: D o not add to previous draw Performed By: #### 8 [id number] #### [facility] [address] [place] [address], [facility] RBC (Bld) [#/Vol] 2.92 10*6/uL Low 3.80-5.00 The [facility] Comment on above: Order Comment: No: D o not add to previous draw Performed By: #### 8 [id number] #### [facility] [address] [place] [address], [place] WBC (Bld) [#/Vol] 20.84 10*3/uL High 4.00-10.60 The [facility] [place] Comment on above: Order Comment: No: D o not add to previous draw Performed By: #### 8 [id number] #### [facility] [address] [place] [address], [facility] DIGOXINon 04-06-2022 Digoxin [Mass/Vol] 1.0 ng/mL Normal 0.7-2.0 [facility] Comment on above: Performed By: #### 0 0071, 43391, 27750, 57656, 86628 ####[facility] [place] [address], [facility] LIPASE BLOODon 04-06-2022 LIPASE 68 Units/L Normal 11-82 The [facility] [place] Comment on above: Performed By: #### 0 0071, 58992, 31939, 61259, 78714 ####[facility] [place] [address], [facility] MAGNESIUM BLOODon 04-06-2022 Magnesium [Mass/Vol] 1.6 mg/dL Low 1.9-2.7 The [facility] [place] Comment on above: Order Comment: Bleed , altereed mental status Performed By: #### 0 0071, 72310, 62209, 35071, 08716 ####[facility] [place] [address], [facility] PHOSPHORUS BLOODon 2 Phosphate [Mass/Vol] 3.5 mg/dL Normal 2.5-5.0 The [facility] [place] Comment on above: Order Comment: No: D o not add to previous draw Performed By: #### 8 [id number] #### [facility] [address] [place] [address], [place] POC GLUCOSE LABon 04-06-2022 Glucose [Mass/Vol] 121 mg/dL High 70-100 The [facility] Comment on above: Performed By: #### 3 0313 #### [facility] [address] [place] [address], [place] Glucose [Mass/Vol] 171 mg/dL High 70-100 The [facility] Comment on above: Performed By: #### 8 [id number] #### [facility] [address] [place] [address], [facility] Glucose [Mass/Vol] 178 mg/dL High 70-100 The [facility] Comment on above: Performed By: #### 8 [id number] #### [facility] [address] [facility] [place] [address], [facility] Glucose [Mass/Vol] 102 mg/dL High 70-100 The [facility] Comment on above: Performed By: #### 5 0608 #### [facility] [address] [facility]. [address] APTTon 04-05-2022 aPTT Coag (Bld) [Time] 29.7 s Normal 25.0-35.0 The [facility] [place] Comment on above: Order Comment: No: D [...] PURPOSE. Performed By: #### 8 [id number] #### [facility] [address] [facility] [place] [address], [facility] CBC W/DIFFon 04-05-2022 ABS IMM GRANS 0.4 10*3/uL High 0.0-0.2 The [facility] Comment on above: Order Comment: No: D o not add to previous draw Performed By: #### 8 [id number] #### [facility] [address] [place] [address], [facility] ABS NEUTROPHILS 19.7 10*3/uL High 1.6-7.6 The [facility] Comment on above: Order Comment: No: D o not add to previous draw Performed By: #### 8 [id number] #### [facility] [address] [place] [address], [facility] ANISO Moderate Normal The [facility] [place] Comment on above: Order Comment: No: D o not add to previous draw Performed By: #### 8 [id number] #### [facility] [address] [place] [address], [facility] Basophils (Bld) [#/Vol] 0.2 10*3/uL Normal 0.0-0.2 The [facility] [place] Comment on above: Order Comment: No: D o not add to previous draw Performed By: #### 8 [id number] #### [facility] [address] [place] [address], [facility] Basophils/100 WBC (Bld) 0.7 % Normal 0.0-1.0 The [facility] [place] Comment on above: Order Comment: No: D o not add to previous draw Performed By: #### 8 [id number] #### [facility] [address] [place] [address], [facility] Eosinophils (Bld) [#/Vol] 0.0 10*3/uL Normal 0.0-0.5 The [facility] [place] Comment on above: Order Comment: No: D o not add to previous draw Performed By: #### 8 [id number] #### [facility] [address] [place] [address], [facility] Eosinophils/100 WBC (Bld) 0.1 % Normal 0.0-6.0 The [facility] [place] Comment on above: Order Comment: No: D o not add to previous draw Performed By: #### 8 [id number] #### [facility] [address] [place] [address], [facility] Erythrocyte distribution width (RBC) [Ratio] 19.5 % High 11.5-15.0 The [facility] [place] Comment on above: Order Comment: No: D o not add to previous draw Performed By: #### 8 [id number] #### [facility] [address] [place] [address], [facility] Hematocrit (Bld) [Volume fraction] 27.8 % Low 36.0-45.0 The [facility] [place] Comment on above: Order Comment: No: D o not add to previous draw Performed By: #### 8 [id number] #### [facility] [address] [place] [address], [facility] Hemoglobin (Bld) [Mass/Vol] 8.6 g/dL Low 12.0-15.0 The [facility] [place] Comment on above: Order Comment: No: D o not add to previous draw Performed By: #### 8 [id number] #### [facility] [address] [facility] [place] [address], [facility] IMMATURE GRANS 2.0 % High 0.0-1.0 The [facility] Comment on above: Order Comment: No: D o not add to previous draw Performed By: #### 8 [id number] #### [facility] [address] [facility] [place] [address], [facility] Lymphocytes (Bld) [#/Vol] 1.4 10*3/uL Normal 1.2-4.0 The [facility] [place] Comment on above: Order Comment: No: D o not add to previous draw Performed By: #### 8 [id number] #### [facility] [address] [place] [address], [facility] Lymphocytes/100 WBC (Bld) 6.5 % Low 20.0-45.0 The [facility] [place] Comment on above: Order Comment: No: D o not add to previous draw Performed By: #### 8 [id number] #### [facility] [address] [place] [address], [facility] MCH (RBC) [Entitic mass] 30.3 pg Normal 27.0-33.0 The [facility] [place] Comment on above: Order Comment: No: D o not add to previous draw Performed By: #### 8 [id number] #### [facility] [address] [place] [address], [facility] MCHC (RBC) [Mass/Vol] 30.9 g/dL Low 32.0-35.0 The [facility] [place] Comment on above: Order Comment: No: D o not add to previous draw Performed By: #### 8 [id number] #### [facility] [address] [place] [address], [facility] MCV (RBC) [Entitic vol] 97.9 fL Normal 82.0-98.0 The [facility] [place] Comment on above: Order Comment: No: D o not add to previous draw Performed By: #### 8 [id number] #### [facility] [address] [place] [address], [facility] Monocytes (Bld) [#/Vol] 0.4 10*3/uL Normal 0.1-1.0 The [facility] [place] Comment on above: Order Comment: No: D o not add to previous draw Performed By: #### 8 [id number] #### [facility] [address] [place] [address], [facility] MONOS 1.9 % Low 5.0-12.0 The [facility] [place] Comment on above: Order Comment: No: D o not add to previous draw Performed By: #### 8 [id number] #### [facility] [address] [place] [address], [facility] Neutrophils/100 WBC (Bld) 88.8 % High 40.0-72.0 The [facility] [place] Comment on above: Order Comment: No: D o not add to previous draw Performed By: #### 8 [id number] #### [facility] [address] [place] [address], [facility] Nucleated RBC/100 WBC (Bld) [Ratio] 0 % Normal 0-0 The [facility] [place] Comment on above: Order Comment: No: D o not add to previous draw Performed By: #### 8 [id number] #### [facility] [address] [place] [address], [facility] PLAT CNT 303 10*3/uL Normal 150-400 The [facility] Comment on above: Order Comment: No: D o not add to previous draw Performed By: #### 8 [id number] #### [facility] [address] [facility] [address] POIK Slight Normal The [facility] [place] Comment on above: Order Comment: No: D o not add to previous draw Performed By: #### 8 [id number] #### [facility] [address] [place] [address], [facility] POLY Slight Normal The [facility] [place] Comment on above: Order Comment: No: D o not add to previous draw Performed By: #### 8 [id number] #### [facility] [address] RBC (Bld) [#/Vol] 2.84 10*6/uL Low 3.80-5.00 The [facility] Comment on above: Order Comment: No: D o not add to previous draw Performed By: #### 8 [id number] #### [facility] [address] [place] [address], [facility] WBC (Bld) [#/Vol] 22.20 10*3/uL High 4.00-10.60 [facility] Comment on above: Order Comment: No: D o not add to previous draw Performed By: #### 8 [id number] #### [facility] [address] COMP METABOLIC PANELon 04-05 Albumin [Mass/Vol] 2.5 g/dL Low 3.5-5.7 The [facility] Comment on above: Order Comment: The A ptima SARS-CoV-2 assay is a nucleic acid amplification test intended for the qualitative detection of RNA from SARS-CoV-2 isolated and purified from nasopharyngeal (ASSOCIATE ACCOUNT EXECUTIVE),oropharyngeal (OP), nasal swab, sputum, and bronchoalveolar lavage (BAL) specimens from patients with signs and symptoms of infection who are suspected of COVID-19. Results are for the identification of SARS-CoV-2 RNA. The SARS-CoV-2 RNA is generally detectable during the acute phase of infection. The Aptima SARS-CoV-2 Assay on the [employer] system is intended for use by laboratory personnel specifically instructed and trained in the operation of the [employer] system. The Aptima SARS-CoV-2 assay is [...] information. Performed By: #### 3 1792 #### [facility] [address] ALKALINE PHOSPH 100 IU/L Normal 34-104 The [facility] Comment on above: Order Comment: The A ptima SARS-CoV-2 assay is a nucleic acid amplification test intended for the qualitative detection of RNA from SARS-CoV-2 isolated and purified from nasopharyngeal (ASSOCIATE ACCOUNT EXECUTIVE),oropharyngeal (OP), nasal swab, sputum, and bronchoalveolar lavage (BAL) specimens from patients with signs and symptoms of infection who are suspected of COVID-19. Results are for the identification of SARS-CoV-2 RNA. The SARS-CoV-2 RNA is generally detectable during the acute phase of infection. The Aptima SARS-CoV-2 Assay on the [employer] system is intended for use by laboratory personnel specifically instructed and trained in the operation of the [employer] system. The Aptima SARS-CoV-2 assay is [...] information. Performed By: #### 3 1792 #### [facility] [address] [facility] [place], [place] [address] [place] [address] ALT [Catalytic activity/Vol] 13 U/L Normal 7-52 The [facility] [place] Comment on above: Order Comment: The A ptima SARS-CoV-2 assay is a nucleic acid amplification test intended for the qualitative detection of RNA from SARS-CoV-2 isolated and purified from nasopharyngeal (ASSOCIATE ACCOUNT EXECUTIVE),oropharyngeal (OP), nasal swab, sputum, and bronchoalveolar lavage (BAL) specimens from patients with signs and symptoms of infection who are suspected of COVID-19. Results are for the identification of SARS-CoV-2 RNA. The SARS-CoV-2 RNA is generally detectable during the acute phase of infection. The Aptima SARS-CoV-2 Assay on the [email or web address] system is intended for use by laboratory personnel specifically instructed and trained in the operation of the [employer] Fusion system. The Aptima SARS-CoV-2 assay is [...] information. Performed By: #### 3 1792 #### [facility] [address] [facility] [place] [address], [facility] AST [Catalytic activity/Vol] 12 U/L Low 13-39 The [facility] [place] Comment on above: Order Comment: The A ptima SARS-CoV-2 assay is a nucleic acid amplification test intended for the qualitative detection of RNA from SARS-CoV-2 isolated and purified from nasopharyngeal (ASSOCIATE ACCOUNT EXECUTIVE),oropharyngeal (OP), nasal swab, sputum, and bronchoalveolar lavage (BAL) specimens from patients with signs and symptoms of infection who are suspected of COVID-19. Results are for the identification of SARS-CoV-2 RNA. The SARS-CoV-2 RNA is generally detectable during the acute phase of infection. The Aptima SARS-CoV-2 Assay on the [employer] system is intended for use by laboratory personnel specifically instructed and trained in the operation of the [employer] system. The Aptima SARS-CoV-2 assay is [...] information. Performed By: #### 3 1792 #### [facility] [address] Bilirubin [Mass/Vol] 0.8 mg/dL Normal 0.3-1.0 The [facility] [place] Comment on above: Order Comment: The A ptima SARS-CoV-2 assay is a nucleic acid amplification test intended for the qualitative detection of RNA from SARS-CoV-2 isolated and purified from nasopharyngeal (ASSOCIATE ACCOUNT EXECUTIVE),oropharyngeal (OP), nasal swab, sputum, and bronchoalveolar lavage (BAL) specimens from patients with signs and symptoms of infection who are suspected of COVID-19. Results are for the identification of SARS-CoV-2 RNA. The SARS-CoV-2 RNA is generally detectable during the acute phase of infection. The Aptima SARS-CoV-2 Assay on the [employer] system is intended for use by laboratory personnel specifically instructed and trained in the operation of the [employer] system. The Aptima SARS-CoV-2 assay is [...] information. Performed By: #### 3 1792 #### [facility] [address] Calcium [Mass/Vol] 8.1 mg/dL Low 8.6-10.3 The [facility] Comment on above: Order Comment: The A ptima SARS-CoV-2 assay is a nucleic acid amplification test intended for the qualitative detection of RNA from SARS-CoV-2 isolated and purified from nasopharyngeal (ASSOCIATE ACCOUNT EXECUTIVE),oropharyngeal (OP), nasal swab, sputum, and bronchoalveolar lavage (BAL) specimens from patients with signs and symptoms of infection who are suspected of COVID-19. Results are for the identification of SARS-CoV-2 RNA. The SARS-CoV-2 RNA is generally detectable during the acute phase of infection. The Aptima SARS-CoV-2 Assay on the [employer] system is intended for use by laboratory personnel specifically instructed and trained in the operation of the [employer] Fusion system. The Aptima SARS-CoV-2 assay is [...] information. Performed By: #### 3 1792 #### [facility] [employer]. [address] Chloride [Moles/Vol] 106 mmol/L Normal 98-107 The [facility] [place] Comment on above: Order Comment: The A ptima SARS-CoV-2 assay is a nucleic acid amplification test intended for the qualitative detection of RNA from SARS-CoV-2 isolated and purified from nasopharyngeal (ASSOCIATE ACCOUNT EXECUTIVE),oropharyngeal (OP), nasal swab, sputum, and bronchoalveolar lavage (BAL) specimens from patients with signs and symptoms of infection who are suspected of COVID-19. Results are for the identification of SARS-CoV-2 RNA. The SARS-CoV-2 RNA is generally detectable during the acute phase of infection. The Aptima SARS-CoV-2 Assay on the [employer] Fusion system is intended for use by laboratory personnel specifically instructed and trained in the operation of the [employer] system. The Aptima SARS-CoV-2 assay is [...] information. Performed By: #### 3 1792 #### [facility] [address] [place] [address], [facility] CO2 [Moles/Vol] 26 mmol/L Normal 21-31 [facility] Comment on above: Order Comment: The A ptima SARS-CoV-2 assay is a nucleic acid amplification test intended for the qualitative detection of RNA from SARS-CoV-2 isolated and purified from nasopharyngeal (ASSOCIATE ACCOUNT EXECUTIVE),oropharyngeal (OP), nasal swab, sputum, and bronchoalveolar lavage (BAL) specimens from patients with signs and symptoms of infection who are suspected of COVID-19. Results are for the identification of SARS-CoV-2 RNA. The SARS-CoV-2 RNA is generally detectable during the acute phase of infection. The Aptima SARS-CoV-2 Assay on the [employer] system is intended for use by laboratory personnel specifically instructed and trained in the operation of the [employer] system. The Aptima SARS-CoV-2 assay is [...] information. Performed By: #### 3 [id number] #### [facility] [address] [place] [address], [facility] Creatinine [Mass/Vol] 1.24 mg/dL High 0.60-1.20 The [facility] [place] Comment on above: Order Comment: The A ptima SARS-CoV-2 assay is a nucleic acid amplification test intended for the qualitative detection of RNA from SARS-CoV-2 isolated and purified from nasopharyngeal (ASSOCIATE ACCOUNT EXECUTIVE),oropharyngeal (OP), nasal swab, sputum, and bronchoalveolar lavage (BAL) specimens from patients with signs and symptoms of infection who are suspected of COVID-19. Results are for the identification of SARS-CoV-2 RNA. The SARS-CoV-2 RNA is generally detectable during the acute phase of infection. The Aptima SARS-CoV-2 Assay on the [employer] system is intended for use by laboratory personnel specifically instructed and trained in the operation of the [employer] system. The Aptima SARS-CoV-2 assay is [...] information. Performed By: #### 3 1792 #### [facility] [address] [facility] eGFR- 50 ml/min/1.73sq m Abnormal >60 [facility] Comment on above: Order Comment: The A ptima SARS-CoV-2 assay is a nucleic acid amplification test intended for the qualitative detection of RNA from SARS-CoV-2 isolated and purified from nasopharyngeal (ASSOCIATE ACCOUNT EXECUTIVE),oropharyngeal (OP), nasal swab, sputum, and bronchoalveolar lavage (BAL) specimens from patients with signs and symptoms of infection who are suspected of COVID-19. Results are for the identification of SARS-CoV-2 RNA. The SARS-CoV-2 RNA is generally detectable during the acute phase of infection. The Aptima SARS-CoV-2 Assay on the [employer] system is intended for use by laboratory personnel specifically instructed and trained in the operation of the [employer] system. The Aptima SARS-CoV-2 assay is [...] years Performed By: #### 3 1792 #### [facility] [address] [place] [address], [facility] eGFR- non- 42 ml/min/1.73sq m Abnormal >60 [facility] Comment on above: Order Comment: The A ptima SARS-CoV-2 assay is a nucleic acid amplification test intended for the qualitative detection of RNA from SARS-CoV-2 isolated and purified from nasopharyngeal (ASSOCIATE ACCOUNT EXECUTIVE),oropharyngeal (OP), nasal swab, sputum, and bronchoalveolar lavage (BAL) specimens from patients with signs and symptoms of infection who are suspected of COVID-19. Results are for the identification of SARS-CoV-2 RNA. The SARS-CoV-2 RNA is generally detectable during the acute phase of infection. The Aptima SARS-CoV-2 Assay on the [employer] and [employer] system is intended for use by laboratory personnel specifically instructed and trained in the operation of the [employer] system. The Aptima SARS-CoV-2 assay is [...] years Performed By: #### 3 1792 #### [facility] [address] [place] [address], [facility] Glucose [Mass/Vol] 95 mg/dL Normal 70-100 [facility] Comment on above: Order Comment: The A ptima SARS-CoV-2 assay is a nucleic acid amplification test intended for the qualitative detection of RNA from SARS-CoV-2 isolated and purified from nasopharyngeal (ASSOCIATE ACCOUNT EXECUTIVE),oropharyngeal (OP), nasal swab, sputum, and bronchoalveolar lavage (BAL) specimens from patients with signs and symptoms of infection who are suspected of COVID-19. Results are for the identification of SARS-CoV-2 RNA. The SARS-CoV-2 RNA is generally detectable during the acute phase of infection. The Aptima SARS-CoV-2 Assay on the [employer] system is intended for use by laboratory personnel specifically instructed and trained in the operation of the [employer] system. The Aptima SARS-CoV-2 assay is [...] information. Performed By: #### 3 1792 #### [address] Potassium [Moles/Vol] 4.1 mmol/L Normal 3.5-5.1 The [facility] [place] Comment on above: Order Comment: The A ptima SARS-CoV-2 assay is a nucleic acid amplification test intended for the qualitative detection of RNA from SARS-CoV-2 isolated and purified from nasopharyngeal (ASSOCIATE ACCOUNT EXECUTIVE),oropharyngeal (OP), nasal swab, sputum, and bronchoalveolar lavage (BAL) specimens from patients with signs and symptoms of infection who are suspected of COVID-19. Results are for the identification of SARS-CoV-2 RNA. The SARS-CoV-2 RNA is generally detectable during the acute phase of infection. The Aptima SARS-CoV-2 Assay on the [employer] system is intended for use by laboratory personnel specifically instructed and trained in the operation of the [employer] system. The Aptima SARS-CoV-2 assay is [...] information. Performed By: #### 3 1792 #### [facility] [address] [facility] [place] [address], [facility] Protein [Mass/Vol] 5.0 g/dL Low 6.0-8.3 The [facility] Comment on above: Order Comment: The A ptima SARS-CoV-2 assay is a nucleic acid amplification test intended for the qualitative detection of RNA from SARS-CoV-2 isolated and purified from nasopharyngeal (ASSOCIATE ACCOUNT EXECUTIVE),oropharyngeal (OP), nasal swab, sputum, and bronchoalveolar lavage (BAL) specimens from patients with signs and symptoms of infection who are suspected of COVID-19. Results are for the identification of SARS-CoV-2 RNA. The SARS-CoV-2 RNA is generally detectable during the acute phase of infection. The Aptima SARS-CoV-2 Assay on the [employer] and [employer] system is intended for use by laboratory personnel specifically instructed and trained in the operation of the [employer] system. The Aptima SARS-CoV-2 assay is [...] and epidemiological information. Performed By: #### 3 1791 #### [facility] [address] [place] [address], [facility] Sodium [Moles/Vol] 138 mmol/L Normal 136-145 The [facility] Comment on above: Order Comment: The A ptima SARS-CoV-2 assay is a nucleic acid amplification test intended for the qualitative detection of RNA from SARS-CoV-2 isolated and purified from nasopharyngeal (ASSOCIATE ACCOUNT EXECUTIVE),oropharyngeal (OP), nasal swab, sputum, and bronchoalveolar lavage (BAL) specimens from patients with signs and symptoms of infection who are suspected of COVID-19. Results are for the identification of SARS-CoV-2 RNA. The SARS-CoV-2 RNA is generally detectable during the acute phase of infection. The Aptima SARS-CoV-2 Assay on the [employer] system is intended for use by laboratory personnel specifically instructed and trained in the operation of the [employer] system. The Aptima SARS-CoV-2 assay is [...] information. Performed By: #### 3 1792 #### [facility] [address] Urea nitrogen [Mass/Vol] 24 mg/dL Normal 7-25 The [facility] [place] Comment on above: Order Comment: The A ptima SARS-CoV-2 assay is a nucleic acid amplification test intended for the qualitative detection of RNA from SARS-CoV-2 isolated and purified from nasopharyngeal (ASSOCIATE ACCOUNT EXECUTIVE),oropharyngeal (OP), nasal swab, sputum, and bronchoalveolar lavage (BAL) specimens from patients with signs and symptoms of infection who are suspected of COVID-19. Results are for the identification of SARS-CoV-2 RNA. The SARS-CoV-2 RNA is generally detectable during the acute phase of infection. The Aptima SARS-CoV-2 Assay on the [employer] system is intended for use by laboratory personnel specifically instructed and trained in the operation of the [employer] system. The Aptima SARS-CoV-2 assay is [...] information. Performed By: #### 3 [id number] #### [facility] [address] [place] [address], [facility] HEMOGLOBINon 04-05-2022 Hemoglobin (Bld) [Mass/Vol] 8.9 g/dL Low 12.0-15.0 The [facility] [place] Comment on above: Order Comment: No: D o not add to previous draw Performed By: #### 8 [id number] #### [facility] [address] [place] [address], [facility] Hemoglobin (Bld) [Mass/Vol] 10.1 g/dL Low 12.0-15.0 The [facility] [place] Comment on above: Order Comment: No: D o not add to previous draw Performed By: #### 8 [id number] #### [facility] [address] [place] [address], [facility] MAGNESIUM BLOODon 04-05-2022 Magnesium [Mass/Vol] 1.6 mg/dL Low 1.9-2.7 The [facility] [place] Comment on above: Order Comment: The A ptima SARS-CoV-2 assay is a nucleic acid amplification test intended for the qualitative detection of RNA from SARS-CoV-2 isolated and purified from nasopharyngeal (ASSOCIATE ACCOUNT EXECUTIVE),oropharyngeal (OP), nasal swab, sputum, and bronchoalveolar lavage (BAL) specimens from patients with signs and symptoms of infection who are suspected of COVID-19. Results are for the identification of SARS-CoV-2 RNA. The SARS-CoV-2 RNA is generally detectable during the acute phase of infection. The Aptima SARS-CoV-2 Assay on the [employer] system is intended for use by laboratory personnel specifically instructed and trained in the operation of the [employer] system. The Aptima SARS-CoV-2 assay is [...] information. Performed By: #### 3 [id number] #### [facility] [address] [facility] [place] [address], [facility] PHOSPHORUS BLOODon 2 Phosphate [Mass/Vol] 3.5 mg/dL Normal 2.5-5.0 [facility] Comment on above: Order Comment: The A ptima SARS-CoV-2 assay is a nucleic acid amplification test intended for the qualitative detection of RNA from SARS-CoV-2 isolated and purified from nasopharyngeal (ASSOCIATE ACCOUNT EXECUTIVE),oropharyngeal (OP), nasal swab, sputum, and bronchoalveolar lavage (BAL) specimens from patients with signs and symptoms of infection who are suspected of COVID-19. Results are for the identification of SARS-CoV-2 RNA. The SARS-CoV-2 RNA is generally detectable during the acute phase of infection. The Aptima SARS-CoV-2 Assay on the [employer] and [employer] system is intended for use by laboratory personnel specifically instructed and trained in the operation of the [employer] and [employer] Fusion system. The Aptima SARS-CoV-2 assay is [...] information. Performed By: #### 3 [id number] #### [facility] [address] [place] [address], [facility] POC GLUCOSE LABon 04-05-2022 Glucose [Mass/Vol] 115 mg/dL High 70-100 The [facility] Comment on above: Performed By: #### 5 [id number] #### [facility] [address] [place] [address], [place] Glucose [Mass/Vol] 119 mg/dL High 70-100 The [facility] Comment on above: Performed By: #### 8 [id number] #### [facility] [address] [place] [address], [place] Glucose [Mass/Vol] 145 mg/dL High 70-100 The [facility] Comment on above: Performed By: #### 8 [id number] #### [facility] [address] [place] [address], [place] Glucose [Mass/Vol] 108 mg/dL High 70-100 The [facility] Comment on above: Performed By: #### 8 [id number] #### [facility] [address] [place] [address], [place] Glucose [Mass/Vol] 117 mg/dL High 70-100 [facility] Comment on above: Performed By: #### 8 [id number] #### [facility] [address] [place] [address], [facility] PROTHROMBIN TIMEon 2 INR Coag (PPP) [Relative time] 1.13 {INR} Normal 0.91-1.16 The [facility] [place] Comment on above: Order Comment: No: D [...] 1995;[id number]. Performed By: #### 8 [id number] #### [facility] [address] [place] [address], [facility] PT Coag (PPP) [Time] 14.5 s Normal 12.3-14.8 [facility] Comment on above: Order Comment: No: D o not add to previous draw Result Comment: ALL RESULTS MUST BE INTERPRETED WITH RESPECT TO BLOOD DRAWING ARTIFACT OR DILUTION ERROR OF ANTICOAGULANT AT THE TIME OF SAMPLING. Performed By: #### 8 [id number] #### [facility] [address] APTTon 04-04-2022 aPTT Coag (Bld) [Time] 31.2 s Normal 25.0-35.0 [facility] Comment on above: Order Comment: No: [...] PURPOSE. Performed By: #### 8 [id number] #### [facility] [address] ARTERIAL BLOOD GAS WITH ICAo n 04-04-2022 BASE EXCESS 0 mmol/L Normal -2-3 The [facility] Comment on above: Performed By: #### 8 [id number] #### [facility] [address] [facility] [place] [address], [facility] [employer] NASAL CANNULA Normal The [facility] Comment on above: Performed By: #### 8 [id number] #### [facility] [address] [place] [address], [facility] HCO3 (Bld) [Moles/Vol] 26 mmol/L Normal 21-28 The [facility] [place] Comment on above: Performed By: #### 8 [id number] #### [facility] [address] [place] [address], [facility] IONIZED CALCIUM 1.18 mmol/L Normal 1.13-1.32 The [facility] Comment on above: Performed By: #### 8 [id number] #### [facility] [address] [facility] [place] [address], [facility] LPM 2.0 LPM Normal [facility] Comment on above: Performed By: #### 8 [id number] #### [facility] [address] [place] [address], [facility] Oxygen (Bld) [Partial pressure] 74 mm[Hg] Low 83-108 [facility] Comment on above: Performed By: #### 8 [id number] #### [facility] [address] [facility] Oxygen saturation in Blood 95.4 % Normal 94.0-97.0 The [facility] [place] Comment on above: Performed By: #### 8 [id number] #### [facility] [address] [facility] [place] [address], [facility] PCO2 45 mmHg Normal 35-45 The [facility] [place] Comment on above: Performed By: #### 8 [id number] #### [facility] [address] [place] [address], [facility] pH (Bld) 7.37 [pH] Normal 7.35-7.45 The [facility] [place] Comment on above: Performed By: #### 8 [id number] #### [facility] [address] [place] [address], [facility] CBC W/DIFFon 04-04-2022 ABS IMM GRANS 0.7 10*3/uL High 0.0-0.2 The [facility] Comment on above: Order Comment: No: D o not add to previous draw Performed By: #### 8 [id number] #### [facility] [address] [place] [address], [facility] ABS NEUTROPHILS 19.9 10*3/uL High 1.6-7.6 The [facility] Comment on above: Order Comment: No: D o not add to previous draw Performed By: #### 8 [id number] #### [facility] [address] [place] [address], [facility] ANISO Moderate Normal The [facility] [place] Comment on above: Order Comment: No: D o not add to previous draw Performed By: #### 8 [id number] #### [facility] [address] [place] [address], [facility] Basophils (Bld) [#/Vol] 0.2 10*3/uL Normal 0.0-0.2 The [facility] [place] Comment on above: Order Comment: No: D o not add to previous draw Performed By: #### 8 [id number] #### [facility] [address] [place] [address], [facility] Basophils/100 WBC (Bld) 0.7 % Normal 0.0-1.0 The [facility] [place] Comment on above: Order Comment: No: D o not add to previous draw Performed By: #### 8 [id number] #### [facility] [address] [place] [address], [facility] Eosinophils (Bld) [#/Vol] 0.0 10*3/uL Normal 0.0-0.5 The [facility] [place] Comment on above: Order Comment: No: D o not add to previous draw Performed By: #### 8 [id number] #### [facility] [address] [place] [address], [facility] Eosinophils/100 WBC (Bld) 0.1 % Normal 0.0-6.0 The [facility] [place] Comment on above: Order Comment: No: D o not add to previous draw Performed By: #### 8 [id number] #### [facility] [address] [place] [address], [facility] Erythrocyte distribution width (RBC) [Ratio] 20.2 % High 11.5-15.0 The [facility] [place] Comment on above: Order Comment: No: D o not add to previous draw Performed By: #### 8 [id number] #### [facility] [address] [place] [id number], [facility] Hematocrit (Bld) [Volume fraction] 28.0 % Low 36.0-45.0 The [facility] [place] Comment on above: Order Comment: No: D o not add to previous draw Performed By: #### 8 [id number] #### [facility] [address] [place] [address], [facility] Hemoglobin (Bld) [Mass/Vol] 8.8 g/dL Low 12.0-15.0 The [facility] [place] Comment on above: Order Comment: No: D o not add to previous draw Performed By: #### 8 [id number] #### [facility] [address] [place] [address], [facility] IMMATURE GRANS 3.0 % High 0.0-1.0 The [facility] Comment on above: Order Comment: No: D o not add to previous draw Performed By: #### 8 [id number] #### [facility] [address] [place] [address], [facility] Lymphocytes (Bld) [#/Vol] 1.1 10*3/uL Low 1.2-4.0 The [facility] [place] Comment on above: Order Comment: No: D o not add to previous draw Performed By: #### 8 [id number] #### [facility] [address] [place] [address], [facility] Lymphocytes/100 WBC (Bld) 5.1 % Low 20.0-45.0 The [facility] [place] Comment on above: Order Comment: No: D o not add to previous draw Performed By: #### 8 [id number] #### [facility] [address] [place] [address], [facility] MCH (RBC) [Entitic mass] 29.9 pg Normal 27.0-33.0 The [facility] [place] Comment on above: Order Comment: No: D o not add to previous draw Performed By: #### 8 [id number] #### [facility] [address] [place] [address], [facility] MCHC (RBC) [Mass/Vol] 31.4 g/dL Low 32.0-35.0 The [facility] [place] Comment on above: Order Comment: No: D o not add to previous draw Performed By: #### 8 [id number] #### [facility] [address] [place] [address], [facility] MCV (RBC) [Entitic vol] 95.2 fL Normal 82.0-98.0 The [facility] [place] Comment on above: Order Comment: No: D o not add to previous draw Performed By: #### 8 [id number] #### [facility] [address] [facility] [facility] [place] [address], [facility] Monocytes (Bld) [#/Vol] 0.4 10*3/uL Normal 0.1-1.0 The [facility] [place] Comment on above: Order Comment: No: D o not add to previous draw Performed By: #### 8 [id number] #### [facility] [address] [place] [address], [facility] MONOS 2.0 % Low 5.0-12.0 The [facility] [place] Comment on above: Order Comment: No: D o not add to previous draw Performed By: #### 8 [id number] #### [facility] [address] [place] [address], [facility] Neutrophils/100 WBC (Bld) 89.1 % High 40.0-72.0 The [facility] [place] Comment on above: Order Comment: No: D o not add to previous draw Performed By: #### 8 [id number] #### [facility] [address] [place] [address], [facility] Nucleated RBC/100 WBC (Bld) [Ratio] 0 % Normal 0-0 The [facility] [place] Comment on above: Order Comment: No: D o not add to previous draw Performed By: #### 8 [id number] #### [facility] [address] [place] [address], [facility] PLAT CNT 303 10*3/uL Normal 150-400 [facility] Comment on above: Order Comment: No: D o not add to previous draw Performed By: #### 8 [id number] #### [facility] [address] [place] [address], [facility] POIK Slight Normal The [facility] [place] Comment on above: Order Comment: No: D o not add to previous draw Performed By: #### 8 [id number] #### [facility] [address] [place] [address], [facility] POLY Slight Normal The [facility] [place] Comment on above: Order Comment: No: D o not add to previous draw Performed By: #### 8 [id number] #### [facility] [address] [place] [id number], [facility] RBC (Bld) [#/Vol] 2.94 10*6/uL Low 3.80-5.00 The [facility] Comment on above: Order Comment: No: D o not add to previous draw Performed By: #### 8 [id number] #### [facility] [address] [place] [address], [place] WBC (Bld) [#/Vol] 22.35 10*3/uL High 4.00-10.60 The [facility] [place] Comment on above: Order Comment: No: D o not add to previous draw Performed By: #### 8 [id number] #### [facility] [address] [place] [address], [facility] COMP METABOLIC PANELon 04-04 Albumin [Mass/Vol] 2.4 g/dL Low 3.5-5.7 The [facility] Comment on above: Order Comment: No: D o not add to previous draw Performed By: #### 8 [id number] #### [facility] [address] [place] [address], [place] ALKALINE PHOSPH 92 IU/L Normal 34-104 The [facility] Comment on above: Order Comment: No: D o not add to previous draw Performed By: #### 8 [id number] #### [facility] [address] [place] [address], [place] ALT [Catalytic activity/Vol] 12 U/L Normal 7-52 The [facility] Comment on above: Order Comment: No: D o not add to previous draw Performed By: #### 8 [id number] #### [facility] [address] [place] [address], [place] AST [Catalytic activity/Vol] 10 U/L Low 13-39 The [facility] Comment on above: Order Comment: No: D o not add to previous draw Performed By: #### 8 [id number] #### [facility] [address] [place] [address], [place] Bilirubin [Mass/Vol] 1.0 mg/dL Normal 0.3-1.0 The [facility] Comment on above: Order Comment: No: D o not add to previous draw Performed By: #### 8 [id number] #### [facility] [address] [place] [address], [place] Calcium [Mass/Vol] 7.7 mg/dL Low 8.6-10.3 The [facility] Comment on above: Order Comment: No: D o not add to previous draw Performed By: #### 8 [id number] #### [facility] [address] [place] [address], [place] Chloride [Moles/Vol] 110 mmol/L High 98-107 The [facility] Comment on above: Order Comment: No: D o not add to previous draw Performed By: #### 8 [id number] #### [facility] [address] [place] [address], [place] CO2 [Moles/Vol] 24 mmol/L Normal 21-31 [facility] Comment on above: Order Comment: No: D o not add to previous draw Performed By: #### 8 [id number] #### [facility] [address] [place] [address], [place] Creatinine [Mass/Vol] 1.18 mg/dL Normal 0.60-1.20 [facility] Comment on above: Order Comment: No: D o not add to previous draw Performed By: #### 8 [id number] #### [facility] [address] [place] [address], [facility] eGFR- 53 ml/min/1.73sq m Abnormal >60 [facility] Comment on above: Order Comment: No: D o not add to previous draw Result Comment: Calc ulation may not be valid for patients over 70 years Performed By: #### 8 [id number] #### [facility] [address] [place] [address], [place] eGFR- non- 44 ml/min/1.73sq m Abnormal >60 [facility] Comment on above: Order Comment: No: D o not add to previous draw Result Comment: Calc ulation may not be valid for patients over 70 years Performed By: #### 8 [id number] #### [facility] [address] [place] [address], [place] Glucose [Mass/Vol] 90 mg/dL Normal 70-100 [facility] Comment on above: Order Comment: No: D o not add to previous draw Performed By: #### 8 [id number] #### [facility] [address] [place] [address], [place] Potassium [Moles/Vol] 4.3 mmol/L Normal 3.5-5.1 [facility] Comment on above: Order Comment: No: D o not add to previous draw Performed By: #### 8 [id number] #### [facility] [address] [place] [address], [facility] Protein [Mass/Vol] 4.8 g/dL Low 6.0-8.3 [facility] Comment on above: Order Comment: No: D o not add to previous draw Performed By: #### 8 [id number] #### [facility] [address] [place] [address], [place] Sodium [Moles/Vol] 140 mmol/L Normal 136-145 [facility] Comment on above: Order Comment: No: D o not add to previous draw Performed By: #### 8 [id number] #### [facility] [address] [place] [address], [place] Urea nitrogen [Mass/Vol] 37 mg/dL High 7-25 [facility] Comment on above: Order Comment: No: D o not add to previous draw Performed By: #### 8 [id number] #### [facility] [address] [place] [address], [facility] Endoscopy Reporton 2 Endoscopy Report MR#: [id number] [facility] Pt. Name: María Elena Tafoya Surgery Date: 04/03/2022 Room #: [facility] [id number] Date of : 1940 PROCEDURE NOTE ATTENDING: [...] Olivo M.D. Date Trans: 04/04/2022 04:28 Kate/erik [id number] cc: Bennie Albright M.D. [address], [facility] [place] [phone] Normal The [facility] HEMOGLOBINon 04-04-2022 Hemoglobin (Bld) [Mass/Vol] 9.4 g/dL Low 12.0-15.0 [facility] Comment on above: Order Comment: No: D o not add to previous draw Performed By: #### 8 [id number] #### [facility] [address] Hemoglobin (Bld) [Mass/Vol] 9.5 g/dL Low 12.0-15.0 [facility] Comment on above: Order Comment: No: D o not add to previous draw Performed By: #### 5 [id number] #### [facility] [address] [place] [address], [facility] Hemoglobin (Bld) [Mass/Vol] 8.9 g/dL Low 12.0-15.0 The [facility] Comment on above: Order Comment: No: D o not add to previous draw Performed By: #### 8 [id number] #### [facility] [address] [place] [address], [facility] MAGNESIUM BLOODon 04-04-2022 Magnesium [Mass/Vol] 1.6 mg/dL Low 1.9-2.7 The [facility] Comment on above: Order Comment: No: D o not add to previous draw Performed By: #### 8 [id number] #### [facility] [address] [place] [address], [facility] PHOSPHORUS BLOODon Phosphate [Mass/Vol] 3.8 mg/dL Normal 2.5-5.0 [facility] Comment on above: Order Comment: No: D o not add to previous draw Performed By: #### 8 [id number] #### [facility] [address] [place] [address], [place] POC GLUCOSE LABon 04-04-2022 Glucose [Mass/Vol] 123 mg/dL High 70-100 [facility] Comment on above: Performed By: #### 5 [id number] #### [facility] [address] [place] [address], [place] Glucose [Mass/Vol] 152 mg/dL High 70-100 [facility] Comment on above: Performed By: #### 8 [id number] ####[facility] [place] [address], [place] Glucose [Mass/Vol] 111 mg/dL High 70-100 [facility] Comment on above: Performed By: #### 8 [id number] #### [facility] [address] [place] [address], [place] Glucose [Mass/Vol] 109 mg/dL High 70-100 [facility] Comment on above: Performed By: #### 8 [id number] #### [facility] [address] [place] [address], [place] Glucose [Mass/Vol] 94 mg/dL Normal 70-100 [facility] Comment on above: Performed By: #### 8 [id number] ####[facility] [place] [address], [place] PROTHROMBIN TIMEon INR Coag (PPP) [Relative time] 1.18 {INR} High 0.91-1.16 [facility] Comment on above: Order Comment: No: D [...] 1995;108:231S-246S. Performed By: #### 8 [id number] #### [address] PT Coag (PPP) [Time] 14.9 s High 12.3-14.8 [facility] Comment on above: Order Comment: No: D o not add to previous draw Result Comment: ALL RESULTS MUST BE INTERPRETED WITH RESPECT TO BLOOD DRAWING ARTIFACT OR DILUTION ERROR OF ANTICOAGULANT AT THE TIME OF SAMPLING. Performed By: #### 8 [id number] #### [address] UFH HEPARIN ASSAYon 04-04-20 UNFRACTIONATED HEPARIN 0.11 IU/mL Critically low 0.30-0.70 [facility] Comment on above: Result Comment: RESU LTS CHECKED AND CALLED. ACCURATELY READ BACK BY CHAZ LAWLER RN @ [id number] Rivaroxaban and Apixaban will interfere with the anti Xa assay used to monitor UFH and LMWH. Performed By: #### 8 [id number] #### [address] US GALLBLADDERon 04-04-2022 US GALLBLADDER [facility] Department of Radiology [address] [place] [id number] ======== Patient Name: MARÍA ELENA TAFOYA : 1940 Sex: F Age: Race: NA Pt. Location: [id number] Patient Status: I Ordered Date: 04/03/2022 8:05:00 [...] calculi. Electronically signed: Brooke Verduzco. Transcribed by: [email or web address], User Resident: Electronically Signed by: BROOKE VERDUZCO @ 04/04/2022 07:46 AM Normal [facility] Comment on above: Order Comment: Stone s VENOUS BLOOD GASon BASE EXCESS 2 mmol/L Normal [facility] Comment on above: Performed By: #### 8 [id number] #### [facility] [address] [place] [address], [facility] HCO3 (Bld) [Moles/Vol] 27 mmol/L Normal [facility] Comment on above: Performed By: #### 8 [id number] #### [facility] [address] [place] [address], [facility] Oxygen (Bld) [Partial pressure] 72 mm[Hg] Critically high 35-45 [facility] Comment on above: Performed By: #### 8 [id number] #### [facility] [address] [place] [address], [facility] Oxygen saturation in Blood 93.8 % High 65.0-75.0 [facility] Comment on above: Performed By: #### 8 [id number] #### [facility] [address] [place] [address], [facility] PCO2 42 mmHg Normal [facility] Comment on above: Performed By: #### 8 [id number] #### [facility] [address] [place] [address], [facility] pH (Bld) 7.41 [pH] Normal 7.31-7.41 [facility] Comment on above: Performed By: #### 8 [id number] #### [facility] [address] [place] [address], [facility] APTTon 04-03-2022 aPTT Coag (Bld) [Time] 32.6 s Normal 25.0-35.0 [facility] Comment on above: Order Comment: Yes: [...] PURPOSE. Performed By: #### 8 [id number] #### [facility] [address] [place] [address], [facility] ARTERIAL BLOOD GAS WITH ICAo n 04-03-2022 BASE EXCESS 2 mmol/L Normal -2-3 [facility] Comment on above: Performed By: #### 8 [id number] #### [facility] [address] [place] [address], [facility] [employer] [place] Normal The [facility] Comment on above: Performed By: #### 8 [id number] #### [facility] [address] [place] [address], [facility] HCO3 (Bld) [Moles/Vol] 25 mmol/L Normal 21-28 [facility] Comment on above: Performed By: #### 8 [id number] #### [facility] [address] [place] [address], [facility] IONIZED CALCIUM 1.24 mmol/L Normal 1.13-1.32 [facility] Comment on above: Performed By: #### 8 [id number] #### [facility] [address] [place] [address], [facility] LPM 4.0 LPM Normal The [facility] Comment on above: Performed By: #### 8 [id number] #### [facility] [address] [place] [address], [facility] Oxygen (Bld) [Partial pressure] 76 mm[Hg] Low 83-108 [facility] Comment on above: Performed By: #### 8 [id number] #### [facility] [address] [place] [address], [facility] Oxygen saturation in Blood 94.0 % Normal 94.0-97.0 [facility] Comment on above: Performed By: #### 8 [id number] #### [facility] [address] [place] [address], [facility] PCO2 34 mmHg Low 35-45 [facility] Comment on above: Performed By: #### 8 [id number] #### [facility] [address] [place] [address], [facility] pH (Bld) 7.48 [pH] High 7.35-7.45 [facility] Comment on above: Performed By: #### 8 [id number] #### [facility] [address] [place] [address], [facility] BASIC METABOLIC PANELon 05-1 Calcium [Mass/Vol] 8.5 mg/dL Low 8.6-10.3 [facility] Comment on above: Order Comment: No: D o not add to previous draw Performed By: #### 8 [id number] #### [facility] [address] [place] [address], [facility] Chloride [Moles/Vol] 108 mmol/L High 98-107 The [facility] Comment on above: Order Comment: No: D o not add to previous draw Performed By: #### 8 [id number] #### [facility] [address] [place] [address], [facility] CO2 [Moles/Vol] 25 mmol/L Normal 21-31 [facility] Comment on above: Order Comment: No: D o not add to previous draw Performed By: #### 8 [id number] #### [facility] [address] [place] [address], [facility] Creatinine [Mass/Vol] 0.96 mg/dL Normal 0.60-1.20 The [facility] Comment on above: Order Comment: No: D o not add to previous draw Performed By: #### 8 [id number] #### [facility] [address] [place] [address], [facility] eGFR- non- 56 ml/min/1.73sq m Abnormal >60 [facility] Comment on above: Order Comment: No: D o not add to previous draw Result Comment: Calc ulation may not be valid for patients over 70 years Performed By: #### 8 [id number] #### [facility] [address] [place] [address], [place] GFR/1.73 sq M.predicted among blacks MDRD (S/P/Bld) [Vol rate/Area] mL/min/{1.73_m2} Normal >60 The [facility] Comment on above: Order Comment: No: D o not add to previous draw Result Comment: Calc ulation may not be valid for patients over 70 years Performed By: #### 8 [id number] #### [facility] [address] [place] [address], [place] Glucose [Mass/Vol] 122 mg/dL High 70-100 [facility] Comment on above: Order Comment: No: D o not add to previous draw Performed By: #### 8 [id number] #### [facility] [address] [place] [address], [place] Potassium [Moles/Vol] 5.5 mmol/L High 3.5-5.1 [facility] Comment on above: Order Comment: No: D o not add to previous draw Performed By: #### 8 [id number] #### [facility] [address] [place] [address], [place] Sodium [Moles/Vol] 137 mmol/L Normal 136-145 [facility] Comment on above: Order Comment: No: D o not add to previous draw Performed By: #### 8 [id number] #### [facility] [address] [place] [address], [place] Urea nitrogen [Mass/Vol] 30 mg/dL High 7-25 [facility] Comment on above: Order Comment: No: D o not add to previous draw Performed By: #### 8 [id number] #### [facility] [address] [place] [address], [place] BLOOD STOOL GUAIACon 022 BLD STOOL GUAIAC Positive Abnormal NEGATIVE The [facility] Comment on above: Order Comment: No: D o not add to previous draw Performed By: #### 2 2706 #### [facility] [address] [place] [address], [facility] CALCIUM IONIZED CBGLon 04-03 IONIZED CALCIUM 1.18 mmol/L Normal 1.12-1.30 The [facility] Comment on above: Performed By: #### 8 [id number] #### [facility] [address] CBC COMPLETE BLOOD COUNTon 0 04-03-2022 Erythrocyte distribution width (RBC) [Ratio] 17.9 % High 11.5-15.0 The [facility] Comment on above: Order Comment: No: D o not add to previous draw Performed By: #### 5 [id number] #### [facility] [address] [facility]. [address] Hematocrit (Bld) [Volume fraction] 34.4 % Low 36.0-45.0 The [facility] Comment on above: Order Comment: No: D o not add to previous draw Performed By: #### 5 0608 #### [facility] [address] [facility] [place] [address], [facility] Hemoglobin (Bld) [Mass/Vol] 10.6 g/dL Low 12.0-15.0 The [facility] Comment on above: Order Comment: No: D o not add to previous draw Performed By: #### 5 0608 #### [facility] [address] [place] [address], [facility] MCH (RBC) [Entitic mass] 30.3 pg Normal 27.0-33.0 The [facility] Comment on above: Order Comment: No: D o not add to previous draw Performed By: #### 5 0608 #### [facility] [address] [place] [address], [facility] MCHC (RBC) [Mass/Vol] 30.8 g/dL Low 32.0-35.0 The [facility] Comment on above: Order Comment: No: D o not add to previous draw Performed By: #### 5 0608 #### [facility] [address] [place] [address], [facility] MCV (RBC) [Entitic vol] 98.3 fL High 82.0-98.0 The [facility] Comment on above: Order Comment: No: D o not add to previous draw Performed By: #### 5 0608 #### [facility] [address] [place] [address], [facility] Nucleated RBC/100 WBC (Bld) [Ratio] 0 % Normal 0-0 The [facility] Comment on above: Order Comment: No: D o not add to previous draw Performed By: #### 5 0608 #### [facility] [address] [place] [address], [place] PLAT CNT 396 10*3/uL Normal 150-400 [facility] Comment on above: Order Comment: No: D o not add to previous draw Performed By: #### 5 0608 #### [facility] [address] [place] [address], [facility] RBC (Bld) [#/Vol] 3.50 10*6/uL Low 3.80-5.00 The [facility] Comment on above: Order Comment: No: D o not add to previous draw Performed By: #### 5 0608 #### [facility] [address] [place] [address], [place] WBC (Bld) [#/Vol] 34.46 10*3/uL High 4.00-10.60 The [facility] Comment on above: Order Comment: No: D o not add to previous draw Performed By: #### 5 0608 #### [facility] [address] [place] [address], [facility] CT BRAIN WO CONTRASTon 04-03 CT BRAIN WO CONTRAST [facility] Department of Radiology [address] [place] [phone] ======== Patient Name: MARÍA ELENA TAFOYA : 1940 Sex: F Age: Race: NA Pt. Location: [place] [address] Patient Status: I Ordered Date: 04/03/2022 8:30:00 [...] MRLydia Electronically signed: Darrel Gordon. Transcribed by: [email or web address], User Resident: Electronically Signed by: DARREL Yesy BERNARDO @ 04/03/2022 09:21 PM Normal The [facility] Comment on above: Order Comment: Bleed , altereed mental status ERCPon 04-03-2022 ERCP [facility] Department of Radiology [address] [place] [phone] ======== Patient Name: MARÍA ELENA TAFOYA : 1940 Sex: F Age: Race: NA Pt. Location: [id number] Patient Status: I Ordered Date: 04/03/2022 8:50:00 [...] details. Electronically signed: Brooke Verduzco. Transcribed by: [email or web address], User Resident: Electronically Signed by: BROOKE VERDUZCO @ 04/03/2022 12:52 PM Normal The [facility] Comment on above: Order Comment: Check Stent Position HEMATOCRITon 04-03-2022 Hematocrit (Bld) [Volume fraction] 27.5 % Low 36.0-45.0 The [facility] Comment on above: Order Comment: No: D o not add to previous draw Performed By: #### 8 [id number] #### [facility] [address] Hematocrit (Bld) [Volume fraction] 31.1 % Low 36.0-45.0 The [facility] Comment on above: Order Comment: No: D o not add to previous draw Performed By: #### 8 [id number] #### [facility] [address] [place] [address], [facility] Hematocrit (Bld) [Volume fraction] 32.2 % Low 36.0-45.0 The [facility] Comment on above: Order Comment: No: D o not add to previous draw Performed By: #### 8 [id number] #### [facility] [address] [place] [address], [facility] HEMOGLOBINon 04-03-2022 Hemoglobin (Bld) [Mass/Vol] 8.8 g/dL Low 12.0-15.0 The [facility] Comment on above: Order Comment: No: D o not add to previous draw Performed By: #### 8 [id number] #### [facility] [address] [place] [address], [facility] Hemoglobin (Bld) [Mass/Vol] 9.8 g/dL Low 12.0-15.0 [facility] Comment on above: Order Comment: No: D o not add to previous draw Performed By: #### 8 [id number] #### [facility] [address] [place] [address], [facility] Hemoglobin (Bld) [Mass/Vol] 9.9 g/dL Low 12.0-15.0 The [facility] Comment on above: Order Comment: No: D o not add to previous draw Performed By: #### 8 [id number] #### [facility] [address] [place] [address], [facility] LIPASE BLOODon 04-03-2022 LIPASE 149 Units/L High 11-82 [facility] Comment on above: Order Comment: No: D o not add to previous draw Performed By: #### 8 [id number] #### [facility] [address] [place] [address], [facility] LIVER BATTERYon 04-03-2022 Albumin [Mass/Vol] 2.8 g/dL Low 3.5-5.7 [facility] Comment on above: Order Comment: No: D o not add to previous draw Performed By: #### 8 [id number] #### [facility] [address] [place] [address], [facility] ALKALINE PHOSPH 137 IU/L High 34-104 [facility] Comment on above: Order Comment: No: D o not add to previous draw Performed By: #### 8 [id number] #### [facility] [address] [place] [address], [place] ALT [Catalytic activity/Vol] 18 U/L Normal 7-52 The [facility] Comment on above: Order Comment: No: D o not add to previous draw Performed By: #### 8 [id number] #### [facility] [address] [place] [address], [facility] AST [Catalytic activity/Vol] 8 U/L Low 13-39 The [facility] Comment on above: Order Comment: No: D o not add to previous draw Performed By: #### 8 [id number] #### [facility] [address] [place] [address], [place] Bilirubin [Mass/Vol] 1.5 mg/dL High 0.3-1.0 The [facility] Comment on above: Order Comment: No: D o not add to previous draw Performed By: #### 8 [id number] #### [facility] [address] [place] [address], [place] Bilirubin.direct [Mass/Vol] 0.6 mg/dL High 0.0-0.2 The [facility] Comment on above: Order Comment: No: D o not add to previous draw Performed By: #### 8 [id number] #### [facility] [address] [place] [address], [place] Protein [Mass/Vol] 5.8 g/dL Low 6.0-8.3 [facility] Comment on above: Order Comment: No: D o not add to previous draw Performed By: #### 8 [id number] #### [facility] [address] [place] [address], [place] MAGNESIUM BLOODon 04-03-2022 Magnesium [Mass/Vol] 2.0 mg/dL Normal 1.9-2.7 The [facility] Comment on above: Order Comment: No: D o not add to previous draw Performed By: #### 8 [id number] #### [facility] [address] [place] [address], [place] PHOSPHORUS BLOODon Phosphate [Mass/Vol] 4.2 mg/dL Normal 2.5-5.0 The [facility] Comment on above: Order Comment: No: D o not add to previous draw Performed By: #### 8 [id number] #### [facility] [address] [place] [address], [place] POC GLUCOSE LABon 04-03-2022 Glucose [Mass/Vol] 121 mg/dL High 70-100 The [facility] Comment on above: Performed By: #### 8 [id number] #### [facility] [address] [place] [address], [place] Glucose [Mass/Vol] 147 mg/dL High 70-100 [facility] Comment on above: Performed By: #### 8 [id number] #### [facility] [address] [place] [address], [place] Glucose [Mass/Vol] 133 mg/dL High 70-100 [facility] Comment on above: Performed By: #### 3 0313 #### [facility] [address] [place] [address], [facility] PROTHROMBIN TIMEon INR Coag (PPP) [Relative time] 1.23 {INR} High 0.91-1.16 The [facility] Comment on above: Order Comment: Yes: Add [...] 1995;108:231S-246S. Performed By: #### 8 [id number] #### [facility] [address] [place] [address], [facility] PT Coag (PPP) [Time] 15.5 s High 12.3-14.8 [facility] Comment on above: Order Comment: Yes: Add to Previous draw if ablePt is in [place] Result Comment: ALL RESULTS MUST BE INTERPRETED WITH RESPECT TO BLOOD DRAWING ARTIFACT OR DILUTION ERROR OF ANTICOAGULANT AT THE TIME OF SAMPLING. Performed By: #### 8 [id number] #### [facility] [address] [place] [address], [facility] RBC'S 1 UNITon 04-03-2022 CROSSMATCH INTERP 1 COMP Normal [facility] Comment on above: Performed By: #### 8 [id number] #### [facility] [address] [place] [address], [facility] PRODUCT CODE 1 E0336 Normal [facility] Comment on above: Performed By: #### 8 [id number] #### [facility] [address] [facility] [place] [address], [facility] PRODUCT STATUS 1 RE Normal [facility] Comment on above: Result Comment: Resu lt changed by IF on 04/07/2022 06:43. The previous value was XM. Performed By: #### 8 [id number] #### [facility] [address] [place] [address], [facility] UNIT ABO 1 A Normal [facility] Comment on above: Performed By: #### [id number] #### [facility] [address] [place] [address], [facility] UNIT ID 1 [id number] Normal The [facility] Comment on above: Performed By: #### 8 [id number] #### [facility] [address] [place] [address], [facility] UNIT RH 1 Negative Normal The [facility] Comment on above: Performed By: #### 8 [id number] #### [facility] [address] [place] [address], [facility] RBC'S 2 UNITSon 04-03-2022 CROSSMATCH INTERP 1 COMP Normal [facility] Comment on above: Performed By: #### 8 [id number] #### [facility] [address] [place] [address], [facility] CROSSMATCH INTERP 2 COMP Normal [facility] Comment on above: Performed By: #### 8 [id number] #### [facility] [address] [place] [address], [facility] PRODUCT CODE 1 [id number] Normal The [facility] Comment on above: Performed By: #### 8 [id number] #### [facility] [address] [place] [address], [facility] PRODUCT CODE 2 [id number] Normal The [facility] Comment on above: Performed By: #### 8 [id number] #### [facility] [address] [place] [address], [facility] PRODUCT STATUS 1 PT Normal The [facility] Comment on above: Result Comment: Resu lt changed by IF on 04/03/2022 10:21. The previous value was XM. Result changed by IF on 04/04/2022 00:30. The previous value was IS. Performed By: #### 8 [id number] #### [facility] [address] [place] [address], [facility] PRODUCT STATUS 2 PT Normal The [facility] Comment on above: Result Comment: Resu lt changed by IF on 04/03/2022 10:21. The previous value was XM. Result changed by IF on 04/03/2022 11:27. The previous value was IS. Result changed by IF on 04/03/2022 12:23. The previous value was XM. Result changed by IF on 04/04/2022 00:30. The previous value was IS. Performed By: #### 8 [id number] #### [facility] [address] [place] [address], [facility] UNIT ABO 1 A Normal The [facility] Comment on above: Performed By: #### 8 [id number] #### [facility] [address] [place] [address], [place] UNIT ABO 2 A Normal The [facility] Comment on above: Performed By: #### 8 [id number] #### [facility] [address] [place] [address], [facility] UNIT ID 1 [id number] Normal The [facility] Comment on above: Performed By: #### 8 [id number] #### [facility] [address] [place] [address], [facility] UNIT ID 2 [id number] Normal The [facility] Comment on above: Performed By: #### 8 [id number] #### [facility] [address] [place] [address], [facility] UNIT RH 1 Negative Normal The [facility] Comment on above: Performed By: #### 8 [id number] #### [facility] [address] [place] [address], [place] UNIT RH 2 Negative Normal The [facility] Comment on above: Performed By: #### 8 [id number] #### [facility] [address] [place] [address], [facility] TYPE AND SCREENon 04-03-2022 ABO INTERPRETATION AB Normal [facility] Comment on above: Performed By: #### 8 [id number] #### [facility] [address] [place] [address], [place] RH INTERPRETATION Negative Normal The [facility] Comment on above: Performed By: #### 8 [id number] #### [facility] [address] [place] [address], [place] UFH HEPARIN ASSAYon 04-03-20 22 UNFRACTIONATED HEPARIN 0.28 IU/mL Low 0.30-0.70 The [facility] Comment on above: Result Comment: Kristy roxaban and Apixaban will interfere with the anti Xa assay used to monitor UFH and LMWH. Performed By: #### 8 [id number] #### [facility] [address] [place] [address], [facility] VENOUS BLOOD GAS W/COOXon BASE EXCESS -3 mmol/L Normal The [facility] Comment on above: Order Comment: RESUL TS CHECKED AND CALLED. ACCURATELY READ BACK BY AYANNA PHIPPS Performed By: #### 8 [id number] #### [facility] [address] [place] [place] [address], [facility] COHB 2 % Normal The [facility] Comment on above: Order Comment: RESUL TS CHECKED AND CALLED. ACCURATELY READ BACK BY AYANNA PHIPPS Performed By: #### 8 [id number] #### [facility] [address] [place] [address], [facility] HCO3 (Bld) [Moles/Vol] 25 mmol/L Normal The [facility] Comment on above: Order Comment: RESUL TS CHECKED AND CALLED. ACCURATELY READ BACK BY AYANNA PHIPPS Performed By: #### 8 [id number] #### [facility] [address] [place] [address], [facility] METHB 0.3 % Normal The [facility] Comment on above: Order Comment: RESUL TS CHECKED AND CALLED. ACCURATELY READ BACK BY AYANNA PHIPPS Performed By: #### 8 [id number] #### [facility] [address] [place] [address], [facility] Oxygen (Bld) [Partial pressure] 31 mm[Hg] Low 35-45 The [facility] Comment on above: Order Comment: RESUL TS CHECKED AND CALLED. ACCURATELY READ BACK BY AYANNA PHIPPS Performed By: #### 8 [id number] #### [facility] [address] [place] [address], [facility] Oxygen saturation in Blood 38.0 % Low 65.0-75.0 [facility] Comment on above: Order Comment: RESUL TS CHECKED AND CALLED. ACCURATELY READ BACK BY AYANNA PHIPPS Performed By: #### 8 [id number] #### [facility] [address] [facility] [place] [address], [facility] PCO2 53 mmHg Normal [facility] Comment on above: Order Comment: RESUL TS CHECKED AND CALLED. ACCURATELY READ BACK BY AYANNA PHIPPS Performed By: #### 8 [id number] #### [facility] [address] pH (Bld) 7.28 [pH] Low 7.31-7.41 The [facility] Comment on above: Order Comment: RESUL TS CHECKED AND CALLED. ACCURATELY READ BACK BY AYANNA PHIPPS Performed By: #### 8 [id number] #### [facility] [address] [facility] THB 9.2 g/dL Normal The [facility] Comment on above: Order Comment: RESUL TS CHECKED AND CALLED. ACCURATELY READ BACK BY AYANNA PHIPPS Performed By: #### 8 [id number] #### [facility] [address] BASIC METABOLIC PANELon 05- Calcium [Mass/Vol] 8.5 mg/dL Low 8.6-10.3 The [facility] Comment on above: Order Comment: The A ptima SARS-CoV-2 assay is a nucleic acid amplification test intended for the qualitative detection of RNA from SARS-CoV-2 isolated and purified from nasopharyngeal (ASSOCIATE ACCOUNT EXECUTIVE),oropharyngeal (OP), nasal swab, sputum, and bronchoalveolar lavage (BAL) specimens from patients with signs and symptoms of infection who are suspected of COVID-19. Results are for the identification of SARS-CoV-2 RNA. The SARS-CoV-2 RNA is generally detectable during the acute phase of infection. The Aptima SARS-CoV-2 Assay on the [employer] Fusion system is intended for use by laboratory personnel specifically instructed and trained in the operation of the [employer] system. The Aptima SARS-CoV-2 assay is [...] information. Performed By: #### 3 [id number] #### [facility] [address] [place] [address], [facility] Chloride [Moles/Vol] 104 mmol/L Normal 98-107 The [facility] Comment on above: Order Comment: The A [employer] SARS-CoV-2 assay is a nucleic acid amplification test intended for the qualitative detection of RNA from SARS-CoV-2 isolated and purified from nasopharyngeal (ASSOCIATE ACCOUNT EXECUTIVE),oropharyngeal (OP), nasal swab, sputum, and bronchoalveolar lavage (BAL) specimens from patients with signs and symptoms of infection who are suspected of COVID-19. Results are for the identification of SARS-CoV-2 RNA. The SARS-CoV-2 RNA is generally detectable during the acute phase of infection. The [employer]ima SARS-CoV-2 Assay on the [employer] system is intended for use by laboratory personnel specifically instructed and trained in the operation of the [employer] system. The [employer]ptima SARS-CoV-2 assay is [...] and epidemiological information. Performed By: #### 3 [id number] #### [facility] [address] [place] [address], [place] CO2 [Moles/Vol] 23 mmol/L Normal 21-31 The [facility] Comment on above: Order Comment: The A [employer]ima SARS-CoV-2 assay is a nucleic acid amplification test intended for the qualitative detection of RNA from SARS-CoV-2 isolated and purified from nasopharyngeal (ASSOCIATE ACCOUNT EXECUTIVE),oropharyngeal (OP), nasal swab, sputum, and bronchoalveolar lavage (BAL) specimens from patients with signs and symptoms of infection who are suspected of COVID-19. Results are for the identification of SARS-CoV-2 RNA. The SARS-CoV-2 RNA is generally detectable during the acute phase of infection. The [employer]ptima SARS-CoV-2 Assay on the [employer] system is intended for use by laboratory personnel specifically instructed and trained in the operation of the [employer] system. The [employer] SARS-CoV-2 assay is [...] information. Performed By: #### 3 [id number] #### [address] Creatinine [Mass/Vol] 1.00 mg/dL Normal 0.60-1.20 The [facility] Comment on above: Order Comment: The A [employer] SARS-CoV-2 assay is a nucleic acid amplification test intended for the qualitative detection of RNA from SARS-CoV-2 isolated and purified from nasopharyngeal (ASSOCIATE ACCOUNT EXECUTIVE),oropharyngeal (OP), nasal swab, sputum, and bronchoalveolar lavage (BAL) specimens from patients with signs and symptoms of infection who are suspected of COVID-19. Results are for the identification of SARS-CoV-2 RNA. The SARS-CoV-2 RNA is generally detectable during the acute phase of infection. The [employer] SARS-CoV-2 Assay on the [employer] system is intended for use by laboratory personnel specifically instructed and trained in the operation of the [employer] system. The [employer]ptima SARS-CoV-2 assay is [...] information. Performed By: #### 3 [id number] #### [facility] [address] [facility] [place], [place] [address] [place] [address] eGFR- non- 53 ml/min/1.73sq m Abnormal >60 The [facility] Comment on above: Order Comment: The A [employer] SARS-CoV-2 assay is a nucleic acid amplification test intended for the qualitative detection of RNA from SARS-CoV-2 isolated and purified from nasopharyngeal (ASSOCIATE ACCOUNT EXECUTIVE),oropharyngeal (OP), nasal swab, sputum, and bronchoalveolar lavage (BAL) specimens from patients with signs and symptoms of infection who are suspected of COVID-19. Results are for the identification of SARS-CoV-2 RNA. The SARS-CoV-2 RNA is generally detectable during the acute phase of infection. The [employer]ptima SARS-CoV-2 Assay on the [employer] system is intended for use by laboratory personnel specifically instructed and trained in the operation of the [employer] system. The Aptima SARS-CoV-2 assay is [...] over 70 years Performed By: #### 3 1762 #### [facility] [address] GFR/1.73 sq M.predicted among blacks MDRD (S/P/Bld) [Vol rate/Area] mL/min/{1.73_m2} Normal >60 The [facility] Comment on above: Order Comment: The A [employer]ima SARS-CoV-2 assay is a nucleic acid amplification test intended for the qualitative detection of RNA from SARS-CoV-2 isolated and purified from nasopharyngeal (ASSOCIATE ACCOUNT EXECUTIVE),oropharyngeal (OP), nasal swab, sputum, and bronchoalveolar lavage (BAL) specimens from patients with signs and symptoms of infection who are suspected of COVID-19. Results are for the identification of SARS-CoV-2 RNA. The SARS-CoV-2 RNA is generally detectable during the acute phase of infection. The Aptima SARS-CoV-2 Assay on the [employer] system is intended for use by laboratory personnel specifically instructed and trained in the operation of the [employer] system. The Aptima SARS-CoV-2 assay is [...] years Performed By: #### 3 [id number] #### [facility] [address] Glucose [Mass/Vol] 87 mg/dL Normal 70-100 [facility] Comment on above: Order Comment: The A ptima SARS-CoV-2 assay is a nucleic acid amplification test intended for the qualitative detection of RNA from SARS-CoV-2 isolated and purified from nasopharyngeal (ASSOCIATE ACCOUNT EXECUTIVE),oropharyngeal (OP), nasal swab, sputum, and bronchoalveolar lavage (BAL) specimens from patients with signs and symptoms of infection who are suspected of COVID-19. Results are for the identification of SARS-CoV-2 RNA. The SARS-CoV-2 RNA is generally detectable during the acute phase of infection. The [employer]ptima SARS-CoV-2 Assay on the [employer] system is intended for use by laboratory personnel specifically instructed and trained in the operation of the [employer] system. The Aptima SARS-CoV-2 assay is [...] information. Performed By: #### 3 [id number] #### [facility] [address] [facility] [place] [address], [facility] Potassium [Moles/Vol] 4.1 mmol/L Normal 3.5-5.1 [facility] Comment on above: Order Comment: The A [employer]ima SARS-CoV-2 assay is a nucleic acid amplification test intended for the qualitative detection of RNA from SARS-CoV-2 isolated and purified from nasopharyngeal (ASSOCIATE ACCOUNT EXECUTIVE),oropharyngeal (OP), nasal swab, sputum, and bronchoalveolar lavage (BAL) specimens from patients with signs and symptoms of infection who are suspected of COVID-19. Results are for the identification of SARS-CoV-2 RNA. The SARS-CoV-2 RNA is generally detectable during the acute phase of infection. The [employer]ptima SARS-CoV-2 Assay on the [employer] system is intended for use by laboratory personnel specifically instructed and trained in the operation of the [employer] system. The Aptima SARS-CoV-2 assay is [...] and epidemiological information. Performed By: #### 3 [id number] #### [facility] [address] [place] [address], [facility] Sodium [Moles/Vol] 135 mmol/L Low 136-145 [facility] Comment on above: Order Comment: The A ptima SARS-CoV-2 assay is a nucleic acid amplification test intended for the qualitative detection of RNA from SARS-CoV-2 isolated and purified from nasopharyngeal (ASSOCIATE ACCOUNT EXECUTIVE),oropharyngeal (OP), nasal swab, sputum, and bronchoalveolar lavage (BAL) specimens from patients with signs and symptoms of infection who are suspected of COVID-19. Results are for the identification of SARS-CoV-2 RNA. The SARS-CoV-2 RNA is generally detectable during the acute phase of infection. The Aptima SARS-CoV-2 Assay on the [employer] system is intended for use by laboratory personnel specifically instructed and trained in the operation of the [employer] system. The Aptima SARS-CoV-2 assay is [...] information. Performed By: #### 3 1792 #### [address] Urea nitrogen [Mass/Vol] 17 mg/dL Normal 7-25 The [facility] Comment on above: Order Comment: The A ptima SARS-CoV-2 assay is a nucleic acid amplification test intended for the qualitative detection of RNA from SARS-CoV-2 isolated and purified from nasopharyngeal (ASSOCIATE ACCOUNT EXECUTIVE),oropharyngeal (OP), nasal swab, sputum, and bronchoalveolar lavage (BAL) specimens from patients with signs and symptoms of infection who are suspected of COVID-19. Results are for the identification of SARS-CoV-2 RNA. The SARS-CoV-2 RNA is generally detectable during the acute phase of infection. The Aptima SARS-CoV-2 Assay on the [employer] system is intended for use by laboratory personnel specifically instructed and trained in the operation of the [employer] system. The Aptima SARS-CoV-2 assay is [...] information. Performed By: #### 3 [id number] #### [facility] [address] [place] [address], [facility] CALCIUM IONIZED CBGLon 04-02 IONIZED CALCIUM 1.15 mmol/L Normal 1.12-1.30 The [facility] Comment on above: Performed By: #### 8 [id number] #### [facility] [address] [place] [address], [facility] CBC W/DIFFon 04-02-2022 ABS IMM GRANS 0.5 10*3/uL High 0.0-0.2 The [facility] Comment on above: Order Comment: No: D o not add to previous draw Performed By: #### 8 [id number] #### [facility] [address] [facility] [place] [address], [facility] ABS NEUTROPHILS 27.8 10*3/uL High 1.6-7.6 The [facility] Comment on above: Order Comment: No: D o not add to previous draw Performed By: #### 8 [id number] #### [facility] [address] [place] [address], [facility] Basophils (Bld) [#/Vol] 0.2 10*3/uL Normal 0.0-0.2 The [facility] Comment on above: Order Comment: No: D o not add to previous draw Performed By: #### 8 [id number] #### [facility] [address] [place] [address], [facility] Basophils/100 WBC (Bld) 0.7 % Normal 0.0-1.0 The [facility] Comment on above: Order Comment: No: D o not add to previous draw Performed By: #### 8 [id number] #### [facility] [address] [place] [address], [facility] Eosinophils (Bld) [#/Vol] 0.0 10*3/uL Normal 0.0-0.5 The [facility] Comment on above: Order Comment: No: D o not add to previous draw Performed By: #### 8 [id number] #### [facility] [address] [place] [address], [facility] Eosinophils/100 WBC (Bld) 0.1 % Normal 0.0-6.0 The [facility] Comment on above: Order Comment: No: D o not add to previous draw Performed By: #### 8 [id number] #### [facility] [address] [place] [address], [facility] Erythrocyte distribution width (RBC) [Ratio] 17.5 % High 11.5-15.0 The [facility] Comment on above: Order Comment: No: D o not add to previous draw Performed By: #### 8 [id number] #### [facility] [address] [place] [address], [facility] Hematocrit (Bld) [Volume fraction] 39.1 % Normal 36.0-45.0 The [facility] Comment on above: Order Comment: No: D o not add to previous draw Performed By: #### 8 [id number] #### [facility] [address] [place] [address], [facility] Hemoglobin (Bld) [Mass/Vol] 12.1 g/dL Normal 12.0-15.0 The [facility] Comment on above: Order Comment: No: D o not add to previous draw Performed By: #### 8 [id number] #### [facility] [address] [place] [address], [facility] IMMATURE GRANS 1.8 % High 0.0-1.0 The [facility] Comment on above: Order Comment: No: D o not add to previous draw Performed By: #### 8 [id number] #### [facility] [address] [place] [address], [facility] Lymphocytes (Bld) [#/Vol] 1.1 10*3/uL Low 1.2-4.0 The [facility] Comment on above: Order Comment: No: D o not add to previous draw Performed By: #### 8 [id number] #### [facility] [address] [place] [address], [facility] Lymphocytes/100 WBC (Bld) 3.5 % Low 20.0-45.0 The [facility] Comment on above: Order Comment: No: D o not add to previous draw Performed By: #### 8 [id number] #### [facility] [address] [place] [address], [facility] MCH (RBC) [Entitic mass] 30.1 pg Normal 27.0-33.0 The [facility] Comment on above: Order Comment: No: D o not add to previous draw Performed By: #### 8 [id number] #### [facility] [address] [place] [address], [facility] MCHC (RBC) [Mass/Vol] 30.9 g/dL Low 32.0-35.0 The [facility] Comment on above: Order Comment: No: D o not add to previous draw Performed By: #### 8 [id number] #### [facility] [address] [place] [address], [facility] MCV (RBC) [Entitic vol] 97.3 fL Normal 82.0-98.0 The [facility] Comment on above: Order Comment: No: D o not add to previous draw Performed By: #### 8 [id number] #### [facility] [address] [place] [address], [facility] Monocytes (Bld) [#/Vol] 0.6 10*3/uL Normal 0.1-1.0 The [facility] Comment on above: Order Comment: No: D o not add to previous draw Performed By: #### 8 [id number] #### [facility] [address] [place] [address], [place] MONOS 1.8 % Low 5.0-12.0 The [facility] Comment on above: Order Comment: No: D o not add to previous draw Performed By: #### 8 [id number] #### [facility] [address] [place] [address], [place] Neutrophils/100 WBC (Bld) 92.1 % High 40.0-72.0 The [facility] Comment on above: Order Comment: No: D o not add to previous draw Performed By: #### 8 [id number] #### [facility] [address] [place] [address], [facility] Nucleated RBC/100 WBC (Bld) [Ratio] 0 % Normal 0-0 The [facility] Comment on above: Order Comment: No: D o not add to previous draw Performed By: #### 8 [id number] #### [facility] [address] [place] [address], [place] PLAT CNT 370 10*3/uL Normal 150-400 The [facility] Comment on above: Order Comment: No: D o not add to previous draw Performed By: #### 8 [id number] #### [facility] [address] [place] [address], [place] RBC (Bld) [#/Vol] 4.02 10*6/uL Normal 3.80-5.00 The [facility] Comment on above: Order Comment: No: D o not add to previous draw Performed By: #### 8 [id number] #### [facility] [address] [place] [address], [place] WBC (Bld) [#/Vol] 30.18 10*3/uL High 4.00-10.60 The [facility] Comment on above: Order Comment: No: D o not add to previous draw Performed By: #### 8 [id number] #### [facility] [address] [place] [address], [place] ERCPon 05-16-2022 ERCP [facility] Department of Radiology [address] [place] [address] ======== Patient Name: MARÍA ELENA TAFOYA : 1940 Sex: F Age: Race: NA Pt. Location: [id number] Patient Status: I Ordered Date: 04/02/2022 3:40:00 [...] details. Electronically signed: Brooke Verduzco. Transcribed by: [email or web address], User Resident: Electronically Signed by: BROOKE VERDUZCO @ 04/03/2022 09:48 AM Normal The [facility] Comment on above: Order Comment: Check Stent Position Endoscopy Reporton Endoscopy Report MR#: [id number] [facility] [facility] [place] Pt. Name: María Elena Tafoya Surgery Date: 04/02/2022 Room #: [id number] Date of : 1940 PROCEDURE NOTE ATTENDING: Elizabeth Olivo M.D. CABLE FERRYBOAT OPERATOR: Felipe Gallo MD. PROCEDURE: ERCP with [...] Gallo MD Date Trans: 04/02/2022 07:10 P/mmo [id number] cc: Bennie Albright M.D. [address] [facility] [id number] Normal The [facility] [place] LIVER BATTERYon 04-02-2022 Albumin [Mass/Vol] 3.0 g/dL Low 3.5-5.7 [facility] Comment on above: Order Comment: The A ptima SARS-CoV-2 assay is a nucleic acid amplification test intended for the qualitative detection of RNA from SARS-CoV-2 isolated and purified from nasopharyngeal (ASSOCIATE ACCOUNT EXECUTIVE),oropharyngeal (OP), nasal swab, sputum, and bronchoalveolar lavage (BAL) specimens from patients with signs and symptoms of infection who are suspected of COVID-19. Results are for the identification of SARS-CoV-2 RNA. The SARS-CoV-2 RNA is generally detectable during the acute phase of infection. The Aptima SARS-CoV-2 Assay on the [employer] and [employer] Fusion system is intended for use by laboratory personnel specifically instructed and trained in the operation of the [employer] and [employer] Fusion system. The Aptima SARS-CoV-2 assay is [...] information. Performed By: #### 3 [id number] #### [facility] [address] ALKALINE PHOSPH 174 IU/L High 34-104 [facility] Comment on above: Order Comment: The A ptima SARS-CoV-2 assay is a nucleic acid amplification test intended for the qualitative detection of RNA from SARS-CoV-2 isolated and purified from nasopharyngeal (ASSOCIATE ACCOUNT EXECUTIVE),oropharyngeal (OP), nasal swab, sputum, and bronchoalveolar lavage (BAL) specimens from patients with signs and symptoms of infection who are suspected of COVID-19. Results are for the identification of SARS-CoV-2 RNA. The SARS-CoV-2 RNA is generally detectable during the acute phase of infection. The Aptima SARS-CoV-2 Assay on the [employer] and [employer] Fusion system is intended for use by laboratory personnel specifically instructed and trained in the operation of the [employer] Fusion system. The Aptima SARS-CoV-2 assay is [...] information. Performed By: #### 3 1792 #### [facility] [address] ALT [Catalytic activity/Vol] 21 U/L Normal 7-52 [facility] Comment on above: Order Comment: The A ptima SARS-CoV-2 assay is a nucleic acid amplification test intended for the qualitative detection of RNA from SARS-CoV-2 isolated and purified from nasopharyngeal (ASSOCIATE ACCOUNT EXECUTIVE),oropharyngeal (OP), nasal swab, sputum, and bronchoalveolar lavage (BAL) specimens from patients with signs and symptoms of infection who are suspected of COVID-19. Results are for the identification of SARS-CoV-2 RNA. The SARS-CoV-2 RNA is generally detectable during the acute phase of infection. The Aptima SARS-CoV-2 Assay on the [employer] system is intended for use by laboratory personnel specifically instructed and trained in the operation of the [employer] system. The Aptima SARS-CoV-2 assay is [...] information. Performed By: #### 3 [id number] #### [facility] [address] AST [Catalytic activity/Vol] 9 U/L Low 13-39 The [facility] [place] Comment on above: Order Comment: The A ptima SARS-CoV-2 assay is a nucleic acid amplification test intended for the qualitative detection of RNA from SARS-CoV-2 isolated and purified from nasopharyngeal (ASSOCIATE ACCOUNT EXECUTIVE),oropharyngeal (OP), nasal swab, sputum, and bronchoalveolar lavage (BAL) specimens from patients with signs and symptoms of infection who are suspected of COVID-19. Results are for the identification of SARS-CoV-2 RNA. The SARS-CoV-2 RNA is generally detectable during the acute phase of infection. The Aptima SARS-CoV-2 Assay on the [employer] system is intended for use by laboratory personnel specifically instructed and trained in the operation of the [employer] system. The Aptima SARS-CoV-2 assay is [...] and epidemiological information. Performed By: #### 3 [id number] #### [facility] 3000 [facility] [place], [place] [id number] [place] [address] Bilirubin [Mass/Vol] 1.9 mg/dL High 0.3-1.0 The [facility] [place] Comment on above: Order Comment: The A ptima SARS-CoV-2 assay is a nucleic acid amplification test intended for the qualitative detection of RNA from SARS-CoV-2 isolated and purified from nasopharyngeal (ASSOCIATE ACCOUNT EXECUTIVE),oropharyngeal (OP), nasal swab, sputum, and bronchoalveolar lavage (BAL) specimens from patients with signs and symptoms of infection who are suspected of COVID-19. Results are for the identification of SARS-CoV-2 RNA. The SARS-CoV-2 RNA is generally detectable during the acute phase of infection. The Aptima SARS-CoV-2 Assay on the [employer] and [employer] Fusion system is intended for use by laboratory personnel specifically instructed and trained in the operation of the [employer] system. The Aptima SARS-CoV-2 assay is [...] information. Performed By: #### 3 1792 #### [facility] [address] Bilirubin.direct [Mass/Vol] 0.8 mg/dL High 0.0-0.2 The [facility] [place] Comment on above: Order Comment: The A ptima SARS-CoV-2 assay is a nucleic acid amplification test intended for the qualitative detection of RNA from SARS-CoV-2 isolated and purified from nasopharyngeal (ASSOCIATE ACCOUNT EXECUTIVE),oropharyngeal (OP), nasal swab, sputum, and bronchoalveolar lavage (BAL) specimens from patients with signs and symptoms of infection who are suspected of COVID-19. Results are for the identification of SARS-CoV-2 RNA. The SARS-CoV-2 RNA is generally detectable during the acute phase of infection. The Aptima SARS-CoV-2 Assay on the [employer] system is intended for use by laboratory personnel specifically instructed and trained in the operation of the [employer] and [employer] Fusion system. The Aptima SARS-CoV-2 assay is [...] information. Performed By: #### 3 1792 #### [facility] [address] [employer] Protein [Mass/Vol] 6.1 g/dL Normal 6.0-8.3 The [facility] Comment on above: Order Comment: The A ptima SARS-CoV-2 assay is a nucleic acid amplification test intended for the qualitative detection of RNA from SARS-CoV-2 isolated and purified from nasopharyngeal (ASSOCIATE ACCOUNT EXECUTIVE),oropharyngeal (OP), nasal swab, sputum, and bronchoalveolar lavage (BAL) specimens from patients with signs and symptoms of infection who are suspected of COVID-19. Results are for the identification of SARS-CoV-2 RNA. The SARS-CoV-2 RNA is generally detectable during the acute phase of infection. The Aptima SARS-CoV-2 Assay on the [employer] system is intended for use by laboratory personnel specifically instructed and trained in the operation of the [employer] system. The Aptima SARS-CoV-2 assay is [...] information. Performed By: #### 3 1792 #### [facility] [address] [place] [address], [facility] MAGNESIUM BLOOD 04-02-2022 Magnesium [Mass/Vol] 1.3 mg/dL Low 1.9-2.7 The [facility] [place] Comment on above: Order Comment: The A ptima SARS-CoV-2 assay is a nucleic acid amplification test intended for the qualitative detection of RNA from SARS-CoV-2 isolated and purified from nasopharyngeal (ASSOCIATE ACCOUNT EXECUTIVE),oropharyngeal (OP), nasal swab, sputum, and bronchoalveolar lavage (BAL) specimens from patients with signs and symptoms of infection who are suspected of COVID-19. Results are for the identification of SARS-CoV-2 RNA. The SARS-CoV-2 RNA is generally detectable during the acute phase of infection. The Aptima SARS-CoV-2 Assay on the [employer] system is intended for use by laboratory personnel specifically instructed and trained in the operation of the [employer] and [employer] Fusion system. The Aptima SARS-CoV-2 assay is [...] information. Performed By: #### 3 1792 #### [facility] [address] [place] [address], [facility] PHOSPHORUS BLOOD Phosphate [Mass/Vol] 2.9 mg/dL Normal 2.5-5.0 The [facility] [place] Comment on above: Order Comment: The A ptima SARS-CoV-2 assay is a nucleic acid amplification test intended for the qualitative detection of RNA from SARS-CoV-2 isolated and purified from nasopharyngeal (ASSOCIATE ACCOUNT EXECUTIVE),oropharyngeal (OP), nasal swab, sputum, and bronchoalveolar lavage (BAL) specimens from patients with signs and symptoms of infection who are suspected of COVID-19. Results are for the identification of SARS-CoV-2 RNA. The SARS-CoV-2 RNA is generally detectable during the acute phase of infection. The Aptima SARS-CoV-2 Assay on the [employer] Fusion system is intended for use by laboratory personnel specifically instructed and trained in the operation of the [employer] and [employer] Fusion system. The Aptima SARS-CoV-2 assay is [...] information. Performed By: #### 3 1792 #### [facility] [address] POC GLUCOSE LABon 04-02-2022 Glucose [Mass/Vol] 126 mg/dL High 70-100 The [facility] Comment on above: Performed By: #### 8 [id number] #### [facility] [address] [place] [address], [facility] Glucose [Mass/Vol] 102 mg/dL High 70-100 The [facility] Comment on above: Performed By: #### 8 5499 ####[facility] [place] [address], [facility] Glucose [Mass/Vol] 123 mg/dL High 70-100 The [facility] Comment on above: Performed By: #### 8 [id number] #### [facility] [address] [place] [address], [facility] Glucose [Mass/Vol] 96 mg/dL Normal 70-100 The [facility] Comment on above: Performed By: #### 8 [id number] #### [facility] [address] [place] [address], [facility] POC SARS COV2 IDon 2 SARS-CoV-2 (COVID-19) RNA MATTHEW+probe Ql (Unsp spec) Negative Normal NEGATIVE The [facility] [place] Comment on above: Result Comment: ID N [...] Accreditation. Performed By: #### 3 1921 #### [address] PROTHROMBIN TIMEon 2 INR Coag (PPP) [Relative time] 1.21 {INR} High 0.91-1.16 The [facility] [place] Comment on above: Order Comment: No: D [...] 1995;[id number]. Performed By: #### 8 [id number] #### [facility] [address] [place] PT Coag (PPP) [Time] 15.3 s High 12.3-14.8 The [facility] [place] Comment on above: Order Comment: No: D o not add to previous draw Result Comment: ALL RESULTS MUST BE INTERPRETED WITH RESPECT TO BLOOD DRAWING ARTIFACT OR DILUTION ERROR OF ANTICOAGULANT AT THE TIME OF SAMPLING. Performed By: #### 8 [id number] #### [facility] [address] UFH HEPARIN ASSAYon 04-02-20 22 UNFRACTIONATED HEPARIN 0.96 IU/mL Critically high 0.30-0.70 The [facility] [place] Comment on above: Result Comment: Resu lt checked and called. Accurately read back by Eyal Griffin RN at 0543 Rivaroxaban and Apixaban will interfere with the anti Xa assay used to monitor UFH and LMWH. Performed By: #### 8 [id number] #### [facility] 3000 [facility]. [address] *SARS-CoV-2 COVID-19on 04-01 SARS-CoV-2 (COVID-19) RNA MATTHEW+probe Ql (Unsp spec) Not detected Normal Not Detected The [facility] [place] Comment on above: Order Comment: The A ptima SARS-CoV-2 assay is a nucleic acid amplification test intended for the qualitative detection of RNA from SARS-CoV-2 isolated and purified from nasopharyngeal (ASSOCIATE ACCOUNT EXECUTIVE),oropharyngeal (OP), nasal swab, sputum, and bronchoalveolar lavage (BAL) specimens from patients with signs and symptoms of infection who are suspected of COVID-19. Results are for the identification of SARS-CoV-2 RNA. The SARS-CoV-2 RNA is generally detectable during the acute phase of infection. The Aptima SARS-CoV-2 Assay on the [employer] system is intended for use by laboratory personnel specifically instructed and trained in the operation of the [employer] system. The Aptima SARS-CoV-2 assay is [...] information. Performed By: #### 3 1792 #### [facility] 3000 [facility]. [address] AMMONIAon 04-01-2022 Ammonia (P) [Mass/Vol] ug/dL Critically low 11-32 The [facility] Comment on above: Performed By: #### A MM ####[facility] [address] [place], [place] [address]DrLydia Barragan APTTon 04-01-2022 aPTT Coag (Bld) [Time] 35.4 s High 25.0-35.0 The [facility] [place] Comment on above: Order Comment: No: D [...] PURPOSE. Performed By: #### 8 [id number] #### [facility] 3000 [facility]. [address] CBC AUTO DIFFon 04-01-2022 BASO # 0.2 103/ul Critically high 0.0-0.1 The [facility] Comment on above: Performed By: #### C BC ####[facility] [address] [place] [address]DrLydia Barragan Basophils/100 WBC (Bld) 0.6 % Normal 0.2-2.0 [facility] Comment on above: Performed By: #### C BC ####[facility] [address] [place], [place] [address]DrLydia Barragan EO # 0.0 103/ul Normal 0.0-0.7 The [facility] Comment on above: Performed By: #### C BC ####[facility] [address] [place] [address]Dr. Bhavani Laurel Eosinophils/100 WBC (Bld) 0.1 % Critically low 0.9-7.0 The [facility] Comment on above: Performed By: #### C BC ####[facility] [address] [place], [place] [address]Dr. Jayceeroxi Laurel Erythrocyte distribution width (RBC) [Ratio] 17.8 % Critically high 11.0-15.0 [facility] Comment on above: Performed By: #### C BC ####[facility] Vonbf[address] [place], [place] [address]Dr. Bhavani Barragan Hematocrit (Bld) [Volume fraction] 39.0 % Normal 36.0-48.0 [facility] Comment on above: Performed By: #### C BC ####[facility] [address] [place], [place] [address]Dr. Bhavani Barragan Hemoglobin (Bld) [Mass/Vol] 11.9 g/dL Critically low 12.0-16.0 [facility] Comment on above: Performed By: #### C BC ####[facility] N[address] [place], [place] [address]Dr. Bhavani Barragan IG # 0.74 10e3/ul Critically high 0.00-0.03 [facility] Comment on above: Performed By: #### C BC ####[facility] [address] [place], [place] [address]Dr. Bhavani Barragan IG % 2.2 % Critically high 0.0-0.5 The [facility] Comment on above: Performed By: #### C BC ####[facility] [address] [place], [place] [address]DrLydia Barragan LYMPH # 0.9 103/ul Critically low 1.2-3.8 The [facility] Comment on above: Performed By: #### C BC ####[facility] [address] [place], [place] [address]DrLydia Barragan Lymphocytes/100 WBC (Bld) 2.7 % Critically low 20.5-60.0 The [facility] Comment on above: Performed By: #### C BC ####[facility] [address] [place] [address]DrLydia Barragan MANUAL DIFF REQ NO Normal The [facility] Comment on above: Performed By: #### C BC ####[facility] [address] [place] [id number] Barragan MCH (RBC) [Entitic mass] 29.8 pg Normal 26.7-34.0 The [facility] Comment on above: Performed By: #### C BC ####[facility] [address] [place], [place] [address]DrLydia Barragan MCHC (RBC) [Mass/Vol] 30.5 g/dL Normal 29.9-35.2 The [facility] Comment on above: Performed By: #### C BC ####[facility] Cf[address] [place], [place] [address]DrLydia Barragan MCV (RBC) [Entitic vol] 97.5 fL Normal 81.0-99.0 The [facility] Comment on above: Performed By: #### C BC ####[facility] [address] [place], [place] [address]DrLydia Barragan MONO # 0.6 103/ul Normal 0.3-0.8 The [facility] Comment on above: Performed By: #### C BC ####[facility] [address] [place], [place] [address]DrLydia Barragan Monocytes/100 WBC (Bld) 1.7 % Normal 1.7-12.0 The [facility] Comment on above: Performed By: #### C BC ####[facility] [address] [place], [place] [address]DrLydia Barragan NEUT # 30.7 103/ul Critically high 1.4-6.5 The [facility] Comment on above: Performed By: #### C BC ####[facility] [address] [place], [place] [address]DrLydia Barragan Neutrophils/100 WBC (Bld) 92.7 % Critically high 43.0-75.0 The [facility] Comment on above: Performed By: #### C BC ####[facility] [address] [place] [id number]. Bhavani Barragan Platelet mean volume (Bld) [Entitic vol] 9.8 fL Normal 9.5-13.5 The [facility] Comment on above: Performed By: #### C BC ####[facility] [address] [place] [id number]. Bhavani Barragan PLT 372 103/ul Normal 150-450 The [facility] Comment on above: Performed By: #### C BC ####[facility] [address] [place] [id number]. Bhavani Barragan RBC 4.00 106/ul Critically low 4.20-5.40 The [facility] Comment on above: Performed By: #### C BC ####[facility] [address] [place] [id number]. Bhavani Barragan WBC 33.2 103/ul Critically high 4.0-11.0 The [facility] Comment on above: Performed By: #### C BC ####[facility] [address] [place] [id number]. Bhavani Barragan CBC W/DIFFon 04-01-2022 ABS IMM GRANS 0.7 10*3/uL High 0.0-0.2 The [facility] Comment on above: Order Comment: No: D o not add to previous draw Performed By: #### 8 [id number] #### [facility] [address] [place] [address], [facility] ABS NEUTROPHILS 30.0 10*3/uL High 1.6-7.6 The [facility] Comment on above: Order Comment: No: D o not add to previous draw Performed By: #### 8 [id number] #### [facility] [address] [place] [address], [place] Basophils (Bld) [#/Vol] 0.2 10*3/uL Normal 0.0-0.2 The [facility] [place] Comment on above: Order Comment: No: D o not add to previous draw Performed By: #### 8 5499 #### [facility] [address] [place] [address], [facility] Basophils/100 WBC (Bld) 0.5 % Normal 0.0-1.0 The [facility] [place] Comment on above: Order Comment: No: D o not add to previous draw Performed By: #### 8 5499 #### [facility] [address] [place] [address], [facility] Eosinophils (Bld) [#/Vol] 0.0 10*3/uL Normal 0.0-0.5 The [facility] [place] Comment on above: Order Comment: No: D o not add to previous draw Performed By: #### 8 5499 #### [facility] [address] [place] [address], [facility] Eosinophils/100 WBC (Bld) 0.1 % Normal 0.0-6.0 The [facility] [place] Comment on above: Order Comment: No: D o not add to previous draw Performed By: #### 8 [id number] #### [facility] [address] [facility] [address], [facility] Erythrocyte distribution width (RBC) [Ratio] 18.3 % High 11.5-15.0 The [facility] [place] Comment on above: Order Comment: No: D o not add to previous draw Performed By: #### 8 [id number] #### [facility] [address] [place] [address], [place] Hematocrit (Bld) [Volume fraction] 40.4 % Normal 36.0-45.0 The [facility] [place] Comment on above: Order Comment: No: D o not add to previous draw Performed By: #### 8 [id number] #### [facility] [address] [place] [address], [facility] Hemoglobin (Bld) [Mass/Vol] 12.9 g/dL Normal 12.0-15.0 The [facility] [place] Comment on above: Order Comment: No: D o not add to previous draw Performed By: #### 8 [id number] #### [facility] [address] [place] [address], [facility] IMMATURE GRANS 2.1 % High 0.0-1.0 The [facility] Comment on above: Order Comment: No: D o not add to previous draw Performed By: #### 8 [id number] #### [facility] [address] [place] [address], [facility] Lymphocytes (Bld) [#/Vol] 0.8 10*3/uL Low 1.2-4.0 The [facility] [place] Comment on above: Order Comment: No: D o not add to previous draw Performed By: #### 8 5499 #### [facility] [address] [place] [address], [facility] Lymphocytes/100 WBC (Bld) 2.6 % Low 20.0-45.0 The [facility] [place] Comment on above: Order Comment: No: D o not add to previous draw Performed By: #### 8 [id number] #### [facility] [address] [facility] [place] [address], [facility] MCH (RBC) [Entitic mass] 30.6 pg Normal 27.0-33.0 The [facility] [place] Comment on above: Order Comment: No: D o not add to previous draw Performed By: #### 8 [id number] #### [facility] [address] [place] [address], [facility] MCHC (RBC) [Mass/Vol] 31.9 g/dL Low 32.0-35.0 The [facility] [place] Comment on above: Order Comment: No: D o not add to previous draw Performed By: #### 8 [id number] #### [facility] [address] [place] [address], [facility] MCV (RBC) [Entitic vol] 96.0 fL Normal 82.0-98.0 The [facility] [place] Comment on above: Order Comment: No: D o not add to previous draw Performed By: #### 8 [id number] #### [facility] [address] [place] [address], [facility] Monocytes (Bld) [#/Vol] 0.5 10*3/uL Normal 0.1-1.0 The [facility] [place] Comment on above: Order Comment: No: D o not add to previous draw Performed By: #### 8 [id number] #### [facility] [address] [place] [address], [facility] MONOS 1.7 % Low 5.0-12.0 The [facility] [place] Comment on above: Order Comment: No: D o not add to previous draw Performed By: #### 8 [id number] #### [facility] [address] [place] [address], [facility] Neutrophils/100 WBC (Bld) 93.0 % High 40.0-72.0 The [facility] [place] Comment on above: Order Comment: No: D o not add to previous draw Performed By: #### 8 [id number] #### [facility] [address] [place] [address], [facility] Nucleated RBC/100 WBC (Bld) [Ratio] 0 % Normal 0-0 The [facility] [place] Comment on above: Order Comment: No: D o not add to previous draw Performed By: #### 8 [id number] #### [facility] [address] [place] [address], [facility] PLAT CNT 375 10*3/uL Normal 150-400 The [facility] Comment on above: Order Comment: No: D o not add to previous draw Performed By: #### 8 [id number] #### [facility] [address] [place] [address], [facility] RBC (Bld) [#/Vol] 4.21 10*6/uL Normal 3.80-5.00 The [facility] Comment on above: Order Comment: No: D o not add to previous draw Performed By: #### 8 [id number] #### [facility] [address] [place] [address], [facility] WBC (Bld) [#/Vol] 32.19 10*3/uL High 4.00-10.60 [facility] Comment on above: Order Comment: No: D o not add to previous draw Performed By: #### 8 [id number] #### [facility] [address] [place] [address], [facility] COMP METABOLIC PANELon 04-01 Albumin [Mass/Vol] 3.1 g/dL Low 3.5-5.7 [facility] Comment on above: Order Comment: No: D o not add to previous draw Performed By: #### 2 2706 #### [facility] [address] [place] [address], [facility] ALKALINE PHOSPH 208 IU/L High 34-104 [facility] Comment on above: Order Comment: No: D o not add to previous draw Performed By: #### 2 2706 #### [facility] [address] [place] [address], [facility] ALT [Catalytic activity/Vol] 27 U/L Normal 7-52 [facility] Comment on above: Order Comment: No: D o not add to previous draw Performed By: #### 2 2706 #### [facility] [address] [place] [address], [facility] AST [Catalytic activity/Vol] 12 U/L Low 13-39 [facility] Comment on above: Order Comment: No: D o not add to previous draw Performed By: #### 2 2706 #### [facility] [address] [place] [address], [facility] Bilirubin [Mass/Vol] 1.8 mg/dL High 0.3-1.0 [facility] Comment on above: Order Comment: No: D o not add to previous draw Performed By: #### 2 2706 #### [facility] [address] [place] [address], [place] Calcium [Mass/Vol] 8.3 mg/dL Low 8.6-10.3 [facility] Comment on above: Order Comment: No: D o not add to previous draw Performed By: #### 2 2706 #### [facility] [address] [place] [address], [place] Chloride [Moles/Vol] 103 mmol/L Normal 98-107 [facility] Comment on above: Order Comment: No: D o not add to previous draw Performed By: #### 2 2706 #### [facility] [address] [place] [address], [place] CO2 [Moles/Vol] 20 mmol/L Low 21-31 [facility] Comment on above: Order Comment: No: D o not add to previous draw Performed By: #### 2 2706 #### [facility] [address] [place] [address], [place] Creatinine [Mass/Vol] 1.12 mg/dL Normal 0.60-1.20 [facility] Comment on above: Order Comment: No: D o not add to previous draw Performed By: #### 2 2706 #### [facility] [address] [place] [address], [facility] eGFR- 56 ml/min/1.73sq m Abnormal >60 [facility] Comment on above: Order Comment: No: D o not add to previous draw Result Comment: Calc ulation may not be valid for patients over 70 years Performed By: #### 2 2706 #### [facility] [address] [place] [address], [place] eGFR- non- 47 ml/min/1.73sq m Abnormal >60 [facility] Comment on above: Order Comment: No: D o not add to previous draw Result Comment: Calc ulation may not be valid for patients over 70 years Performed By: #### 2 2706 #### [facility] [address] [place] [address], [facility] Glucose [Mass/Vol] 110 mg/dL High 70-100 [facility] Comment on above: Order Comment: No: D o not add to previous draw Performed By: #### 2 2706 #### [facility] [address] [place] [address], [facility] Potassium [Moles/Vol] 4.1 mmol/L Normal 3.5-5.1 [facility] Comment on above: Order Comment: No: D o not add to previous draw Performed By: #### 2 2706 #### [facility] [address] [place] [address], [facility] Protein [Mass/Vol] 6.1 g/dL Normal 6.0-8.3 [facility] Comment on above: Order Comment: No: D o not add to previous draw Performed By: #### 2 2706 #### [facility] [address] [place] [address], [facility] Sodium [Moles/Vol] 134 mmol/L Low 136-145 [facility] Comment on above: Order Comment: No: D o not add to previous draw Performed By: #### 2 2706 #### [facility] [address] [place] [address], [facility] Urea nitrogen [Mass/Vol] 21 mg/dL Normal 7-25 [facility] Comment on above: Order Comment: No: D o not add to previous draw Performed By: #### 2 2706 #### [facility] [address] [place] [address], [place] DIGOXINon 04-01-2022 Digoxin [Mass/Vol] 0.6 ng/mL Low 0.7-2.0 [facility] Comment on above: Performed By: #### 2 2496 #### [facility] [address] [place] [address], [place] DIRECT BILIon 04-01-2022 Bilirubin.direct [Mass/Vol] 0.7 mg/dL High 0.0-0.2 [facility] Comment on above: Order Comment: No: D o not add to previous draw Performed By: #### 2 2706 #### [facility] [address] [place] [address], [place] LIPASEon 04-01-2022 Lipase [Catalytic activity/Vol] 2234.0 U/L Critically high 73.0-393.0 [facility] Comment on above: Performed By: #### L IPA, CMP ####[facility] [address] [place] [id number]. Bhavani Barragan LIPASE BLOODon 04-01-2022 LIPASE 354 Units/L High 11-82 [facility] Comment on above: Order Comment: No: D o not add to previous draw Performed By: #### 2 2706 #### [facility] [address] [place] [address], [place] POC GLUCOSE LABon 04-01-2022 Glucose [Mass/Vol] 114 mg/dL High 70-100 [facility] Comment on above: Performed By: #### 8 [id number] #### [facility] [address] [place] [address], [place] Glucose [Mass/Vol] 113 mg/dL High 70-100 [facility] Comment on above: Performed By: #### 8 5499 #### [facility] [address] [place] [address], [place] Glucose [Mass/Vol] 101 mg/dL High 70-100 [facility] Comment on above: Performed By: #### 3 0313 #### [facility] [address] [place] [address], [place] PROF 14(COMP METB)on 022 Albumin [Mass/Vol] 2.0 g/dL Critically low 3.4-5.0 [facility] Comment on above: Performed By: #### L IPA, CMP ####[facility] [address] [place] [address]Dr. Bhavani Barragan Albumin/Globulin [Mass ratio] 0.5 {ratio} Normal [facility] Comment on above: Performed By: #### L IPA, CMP ####[facility] [address] [place] [address]Dr. Bhavani Barragan ALP [Catalytic activity/Vol] 247 U/L Critically high 46-116 [facility] Comment on above: Performed By: #### L IPA, CMP ####[facility] Ehiswupfj[address] [place], [place] [address]Dr. Bhavani Barragan ALT [Catalytic activity/Vol] 50 U/L Normal 14-59 [facility] Comment on above: Performed By: #### L IPA, CMP ####[facility] Jcsqz[address]url[address] [place], [place] [address]Dr. Bhavani Barragan Anion gap [Moles/Vol] 11.2 mmol/L Normal [facility] Comment on above: Performed By: #### L IPA, CMP ####[facility] W[address]rvnb[address] [place], [place] [address]Dr. Bhavani Barragan AST [Catalytic activity/Vol] 19 U/L Normal 15-37 [facility] Comment on above: Performed By: #### L IPA, CMP ####[facility] Ypexiorhys[address] [place], [place] [address]Dr. Bhavani Barragan Bilirubin [Mass/Vol] 1.5 mg/dL Critically high 0.2-1.0 [facility] Comment on above: Performed By: #### L IPA, CMP ####[facility] Qhtocumefw[address] [place], [place] [address]Dr. Bhavani Barragan Calcium [Mass/Vol] 8.1 mg/dL Critically low 8.5-10.1 [facility] Comment on above: Performed By: #### L IPA, CMP ####[facility] [address] [place] [address]Dr. Bhavani Barragan Chloride [Moles/Vol] 105 mmol/L Normal 98-107 [facility] Comment on above: Performed By: #### L IPA, CMP ####[facility] Fisecumere[address] [place], [place] [address]Dr. Bhavani Barragan CO2 [Moles/Vol] 25.1 mmol/L Normal 21.0-32.0 The [facility] Comment on above: Performed By: #### L IPA, CMP ####[facility] Qjpkejvrwg[address] [place], [place] [address]Dr. Bhavani Barragan Creatinine [Mass/Vol] 1.39 mg/dL Critically high 0.55-1.02 [facility] Comment on above: Performed By: #### L IPA, CMP ####[facility] Olxmytivrw[address] [place], [place] [address]Dr. Bhavani Barargan EGFR-AF ICELANDIC 44 mL/min/1.73m2 Critically low >=60 [facility] Comment on above: Performed By: #### L IPA, CMP ####[facility] Vmbr[address] [place], [place] [address]Dr. Bhavani Barragan EGFR-NON AF ICELANDIC 36 mL/min/1.73m2 Critically low >=60 [facility] Comment on above: Performed By: #### L IPA, CMP ####[facility] Sasglwrwnk[address] [place], [place] [address]Dr. Bhavani Barragan Globulin (S) [Mass/Vol] 4.3 g/dL Normal [facility] Comment on above: Performed By: #### L IPA, CMP ####[facility] Edkycjomyp[address] [place], [place] [address]Dr. Bhavani Barragan Glucose [Mass/Vol] 113 mg/dL Critically high 74-106 [facility] Comment on above: Performed By: #### L IPA, CMP ####[facility] Slspuwiusy[address] [place], [place] [address]Dr. Bhavani Barragan Potassium [Moles/Vol] 4.3 mmol/L Normal 3.5-5.1 [facility] Comment on above: Performed By: #### L IPA, CMP ####[facility] [address] [place] [address]Dr. Bhavani Barragan Protein [Mass/Vol] 6.3 g/dL Critically low 6.4-8.2 Th e [facility] Comment on above: Performed By: #### L IPA, CMP ####[facility] [address] [place] [address]Dr. Bhavani Barragan Sodium [Moles/Vol] 137 mmol/L Normal 136-145 [facility] Comment on above: Performed By: #### L IPA, CMP ####[facility] Yzkzkzlzkm[address] [place], [place] [address]Dr. Bhavani Barragan Urea nitrogen [Mass/Vol] 26.0 mg/dL Critically high 7.0-18.0 [facility] Comment on above: Performed By: #### L IPA, CMP ####[facility] Xanpwwqsep[address] [place], [place] [address]Dr. Bhavani Barragan Urea nitrogen/Creatinine [Mass ratio] 18.7 mg/mg Normal [facility] Comment on above: Performed By: #### L IPA, CMP ####[facility] Gpbivgclxk[address] [place], [place] [address]Dr. Bhavani Barragan PROTIMEon 04-01-2022 INR Coag (PPP) [Relative time] 1.14 {INR} Normal [facility] Comment on above: Performed By: #### P TT, PT ####[facility] Wxuuwgpknq[address] [place], [place] [address]Dr. Bhavani Barragan INR GUIDELINES SEE BELOW Normal [facility] Comment on above: Result Comment: WALKER RED INR: 2.0 - 3.0 CONDITIONS NOT LISTED BELOW 2.5 - 3.5 FOR PROSTHETIC HEART VALVE REPLACEMENT 2.5 - 3.5 RECURRENT THROMBOSIS Performed By: #### P TT, PT ####[facility] [address] [place], [place] [address]Dr. Bhavani Barragan PT Coag (PPP) [Time] 12.2 s Critically high 9.0-11.6 [facility] Comment on above: Performed By: #### P TT, PT ####[facility] [address] [place], [place] [address]Cn. Bhavani Barragan PTTon 04-01-2022 aPTT Coag (Bld) [Time] 25.4 s Normal 22.3-36.2 [facility] Comment on above: Performed By: #### P TT, PT ####[facility] [address] [place], [place] [address]Jy. Bhavani Barragan TROPONIN-Ion 04-01-2022 Troponin I.cardiac [Mass/Vol] 0.02 ng/mL Normal 0.00-0.04 [facility] Comment on above: Result Comment: REFE RENCE RANGES: 0.00 - 0.04 ng/ml NORMAL 0.05 - 0.50 ng/ml INDETERMINATE > 0.50 ng/ml CONSISTENT WITH AN M.I. Performed By: #### 2 2706 #### [facility] [address] UFH HEPARIN ASSAYon 04-01-20 UNFRACTIONATED HEPARIN >1.00 Critically high 0.30-0.70 [facility] Comment on above: Result Comment: Resu lt checked and called. Accurately read back by EYAL GRIFFIN RN ON 04/01/2022 AT 22:07 Rivaroxaban and Apixaban will interfere with the anti Xa assay used to monitor UFH and LMWH. Performed By: #### 8 [id number] #### [facility] [address] [facility]. [address] UNFRACTIONATED HEPARIN >1.00 Critically high 0.30-0.70 [facility] Comment on above: Result Comment: Resu lt checked and called. Accurately read back by YANICK MICHAELS RN ON 04/01/2022 AT 16:07 Rivaroxaban and Apixaban will interfere with the anti Xa assay used to monitor UFH and LMWH. Performed By: #### 8 [id number] #### [facility] [address] [facility] [place] [address], [facility] AMMONIAon 03-31-2022 Ammonia (P) [Mass/Vol] ug/dL Critically low 11-32 [facility] Comment on above: Performed By: #### A MM ####[facility] [address] [place] [address]Dr. Bhavani Barragan CBC AUTO DIFFon 03-31-2022 BASO # 0.1 103/ul Normal 0.0-0.1 [facility] Comment on above: Performed By: #### C BC ####[facility] Mtfjjnjnwj[address] [place], [place] [address]Dr. Bhavani Barragan Basophils/100 WBC (Bld) 0.4 % Normal 0.2-2.0 [facility] Comment on above: Performed By: #### C BC ####[facility] Kqvfawrmlw[address] [place], [place] [address]Dr. Bhavani Barragan EO # 0.0 103/ul Normal 0.0-0.7 [facility] Comment on above: Performed By: #### C BC ####[facility] Tsftkupdip[address] [place], [place] [address]Dr. Bhavani Barragan Eosinophils/100 WBC (Bld) 0.1 % Critically low 0.9-7.0 [facility] Comment on above: Performed By: #### C BC ####[facility] Sw[address]egtsyq[address] [place], [place] [address]Dr. Bhavani Barragan Erythrocyte distribution width (RBC) [Ratio] 17.7 % Critically high 11.0-15.0 [facility] Comment on above: Performed By: #### C BC ####[facility] Zgruhabjsg[address] [place], [place] [address]Dr. Bhavani Barragan Hematocrit (Bld) [Volume fraction] 36.5 % Normal 36.0-48.0 [facility] Comment on above: Performed By: #### C BC ####[facility] Cmwbqjnqti[address] [place], [place] [address]Dr. Bhavani Barragan Hemoglobin (Bld) [Mass/Vol] 11.5 g/dL Critically low 12.0-16.0 [facility] Comment on above: Performed By: #### C BC ####[facility] Psnqnkav[address] [place], [place] [address]Dr. Bhavani Barragan IG # 0.38 10e3/ul Critically high 0.00-0.03 [facility] Comment on above: Performed By: #### C BC ####[facility] [address] [place] [address]DrLydia Championroxi Laurel IG % 1.2 % Critically high 0.0-0.5 [facility] Comment on above: Performed By: #### C BC ####[facility] [address] [place] [address]DrLydia Barragan LYMPH # 0.7 103/ul Critically low 1.2-3.8 [facility] Comment on above: Performed By: #### C BC ####[facility] Ryoxooghse[address] [place], [place] [address]DrLydia Barragan Lymphocytes/100 WBC (Bld) 2.4 % Critically low 20.5-60.0 [facility] Comment on above: Performed By: #### C BC ####[facility] Omqgtuutrw[address] [place], [place] [address]DrLydia Barragan MANUAL DIFF REQ NO Normal [facility] Comment on above: Performed By: #### C BC ####[facility] Dgizbvdcds[address] [place], [place] [address]DrLydia Barragan MCH (RBC) [Entitic mass] 30.3 pg Normal 26.7-34.0 [facility] Comment on above: Performed By: #### C BC ####[facility] Tyjxcphait[address] [place], [place] [address]DrLydia Barragan MCHC (RBC) [Mass/Vol] 31.5 g/dL Normal 29.9-35.2 [facility] Comment on above: Performed By: #### C BC ####[facility] F[address]wvhyav[address] [place], [place] [address]DrLydia Barragan MCV (RBC) [Entitic vol] 96.3 fL Normal 81.0-99.0 [facility] Comment on above: Performed By: #### C BC ####[facility] Cqgkhwpapl[address] [place], [place] [address]Dr. Bhavani Barragan MONO # 0.8 103/ul Normal 0.3-0.8 [facility] Comment on above: Performed By: #### C BC ####[facility] [address] [place] [id number]. Bhavani Barragan Monocytes/100 WBC (Bld) 2.5 % Normal 1.7-12.0 [facility] Comment on above: Performed By: #### C BC ####[facility] [address] [place] [id number]. Bhavani Barragan NEUT # 29.0 103/ul Critically high 1.4-6.5 The [facility] Comment on above: Performed By: #### C BC ####[facility] [address] [place] [id number]. Bhavani Barragan Neutrophils/100 WBC (Bld) 93.4 % Critically high 43.0-75.0 [facility] Comment on above: Performed By: #### C BC ####[facility] [address] [place] [id number]. Bhavani Barragan Platelet mean volume (Bld) [Entitic vol] 10.5 fL Normal 9.5-13.5 [facility] Comment on above: Performed By: #### C BC ####[facility] [address] [place] [id number]. Bhavani Barragan PLT 346 103/ul Normal 150-450 [facility] Comment on above: Performed By: #### C BC ####[facility] [address]mf[address] [place] [id number]. Bhavani Barragan RBC 3.79 106/ul Critically low 4.20-5.40 The [facility] Comment on above: Performed By: #### C BC ####[facility] [address]dx[address] [place] [id number]. Bhavani Barragan WBC 31.0 103/ul Critically high 4.0-11.0 The [facility] Comment on above: Performed By: #### C BC ####[facility] [address]xl[address] [place] [id number]. Bhavani Barragan CT CHEST WO CONon 03-31-2022 CT CHEST WO CON Normal The [facility] LIPASEon 03-31-2022 Lipase [Catalytic activity/Vol] 3577.0 U/L Critically high 73.0-393.0 [facility] Comment on above: Performed By: #### L IPA ####[facility] [address] [place] [address]Dr. Bhavani Barragan MRI ABDOMEN WO CONon 022 MRI ABDOMEN WO CON Normal The [facility] POINT OF CARE GLUCOSEon 03-18 Glucose [Mass/Vol] 153 mg/dL Critically high 74-106 [facility] Comment on above: Performed By: #### P OCGLUC ####[facility] Phpsfvivtc[address] [place], [place] [address]Dr. Bhavani Barragan Glucose [Mass/Vol] 158 mg/dL Critically high 74-106 [facility] Comment on above: Performed By: #### P OCGLUC ####[facility] Smyqigmvpw[address] [place], [place] [address]Dr. Bhavani Barragan Glucose [Mass/Vol] 120 mg/dL Critically high 74-106 [facility] Comment on above: Performed By: #### P OCGLUC ####[facility] Ncy[address]zxqdc[address] [place], [place] [address]Dr. Bhavani Barragan Glucose [Mass/Vol] 74 mg/dL Normal 74-106 [facility] Comment on above: Performed By: #### P OCGLUC ####[facility] Svpljqymrj[address] [place], [place] [address]Dr. Bhavani Barragan PROF 14(COMP METB)on 022 Albumin [Mass/Vol] 1.9 g/dL Critically low 3.4-5.0 [facility] Comment on above: Performed By: #### C MP ####[facility] Kcftfjqiyu[address] [place], [place] [address]Dr. Bhavani Barragan Albumin/Globulin [Mass ratio] 0.5 {ratio} Normal [facility] Comment on above: Performed By: #### C MP ####[facility] Tgmgtumefw[address] [place], [place] [address]Dr. Bhavani Barragan ALP [Catalytic activity/Vol] 283 U/L Critically high 46-116 [facility] Comment on above: Performed By: #### C MP ####[facility] [address] [place] [address]Dr. Bhavani Barragan ALT [Catalytic activity/Vol] 64 U/L Critically high 14-59 [facility] Comment on above: Performed By: #### C MP ####[facility] Wxofkgswnu[address] [place], [place] [address]Dr. Bhavani Laurel Anion gap [Moles/Vol] 11.6 mmol/L Normal [facility] Comment on above: Performed By: #### C MP ####[facility] Uhekwailim[address] [place], [place] [address]Dr. Bhavani Laurel AST [Catalytic activity/Vol] 52 U/L Critically high 15-37 [facility] Comment on above: Performed By: #### C MP ####[facility] Jcixiamlxb[address] [place], [place] [address]Dr. Bhavani Laurel Bilirubin [Mass/Vol] 2.8 mg/dL Critically high 0.2-1.0 [facility] Comment on above: Performed By: #### C MP ####[facility] Qbsoltebyv[address] [place], [place] [address]Dr. Bhavani Laurel Calcium [Mass/Vol] 7.9 mg/dL Critically low 8.5-10.1 [facility] Comment on above: Performed By: #### C MP ####[facility] Xinhfgntqm[address] [place], [place] [address]Dr. Bhavani Laurel Chloride [Moles/Vol] 102 mmol/L Normal 98-107 [facility] Comment on above: Performed By: #### C MP ####[facility] Ghkhzdyngd[address] [place], [place] [address]Dr. Bhavani Barragan CO2 [Moles/Vol] 27.4 mmol/L Normal 21.0-32.0 The [facility] Comment on above: Performed By: #### C MP ####[facility] Qttobuqsou[address] [place], [place] [address]Dr. Jayceeroxi Barragan Creatinine [Mass/Vol] 1.48 mg/dL Critically high 0.55-1.02 [facility] Comment on above: Performed By: #### C MP ####[facility] [address] [place] [address]Dr. Bhavani Laurel EGFR-AF ICELANDIC 41 mL/min/1.73m2 Critically low >=60 [facility] Comment on above: Performed By: #### C MP ####[facility] [address] [place] [address]Dr. Jayceeroxi Laurel EGFR-NON AF ICELANDIC 34 mL/min/1.73m2 Critically low >=60 [facility] Comment on above: Performed By: #### C MP ####[facility] Gptygcrjmf[address] [place], [place] [address]Dr. Bhavani Barragan Globulin (S) [Mass/Vol] 4.0 g/dL Normal [facility] Comment on above: Performed By: #### C MP ####[facility] Blnbiguwsy[address] [place], [place] [address]Dr. Bhavani Barragan Glucose [Mass/Vol] 84 mg/dL Normal 74-106 [facility] Comment on above: Performed By: #### C MP ####[facility] Qcxtlrhzuz[address] [place], [place] [address]Dr. Bhavani Barragan Potassium [Moles/Vol] 4.0 mmol/L Normal 3.5-5.1 [facility] Comment on above: Performed By: #### C MP ####[facility] Auywxgcird[address] [place], [place] [address]Dr. Bhavani Barragan Protein [Mass/Vol] 5.9 g/dL Critically low 6.4-8.2 [facility] Comment on above: Performed By: #### C MP ####[facility] Rqvxeuzcwv[address] [place], [place] [address]Dr. Bhavani Barragan Sodium [Moles/Vol] 137 mmol/L Normal 136-145 [facility] Comment on above: Performed By: #### C MP ####[facility] Csifffdauh[address] [place], [place] [address]Dr. Bhavani Barragan Urea nitrogen [Mass/Vol] 26.0 mg/dL Critically high 7.0-18.0 [facility] Comment on above: Performed By: #### C MP ####[facility] [address]vzelxck[address] [place], [place] [address]Dr. Bhavani Barragan Urea nitrogen/Creatinine [Mass ratio] 17.6 mg/mg Normal [facility] Comment on above: Performed By: #### C MP ####[facility] [address]nsqeszyic[address] [place], [place] [address]Dr. Bhavani Laurle PROTIMEon 03-31-2022 INR Coag (PPP) [Relative time] 1.34 {INR} Normal [facility] Comment on above: Performed By: #### P T, PTT ####[facility] [address] [place], [place] [address]Dr. Bhavani Laurel INR GUIDELINES SEE BELOW Normal [facility] Comment on above: Result Comment: WALKER RED INR: 2.0 - 3.0 CONDITIONS NOT LISTED BELOW 2.5 - 3.5 FOR PROSTHETIC HEART VALVE REPLACEMENT 2.5 - 3.5 RECURRENT THROMBOSIS Performed By: #### P T, PTT ####[facility] Wtojpoojum[address] [place], [place] [address]Dr. Bhavani Barragan PT Coag (PPP) [Time] 14.2 s Critically high 9.0-11.6 [facility] Comment on above: Performed By: #### P T, PTT ####[facility] Yqjodygktt[address] [place], [place] [address]Dr. Bhavani Laurel PTTon 03-31-2022 aPTT Coag (Bld) [Time] 37.6 s Critically high 22.3-36.2 [facility] Comment on above: Performed By: #### P T, PTT ####[facility] Fovlzlomzp[address] [place], [place] [address]Dr. Bhavani Laurel XR CHEST 1 Von 03-31-2022 XR CHEST 1 V Normal [facility] AMMONIAon 03-30-2022 Ammonia (P) [Moles/Vol] 30 umol/L Normal 11-32 [facility] Comment on above: Performed By: #### A MM ####[facility] Ysjsrffgns75[address] [place] [address]Dr. Bhavani Barragan CBC W MANUAL DIFFon 03-30-20 22 ATYPICAL LYMPH # Normal The [facility] Comment on above: Performed By: #### C OMID ####[facility] Ppxqxmlxmy18[address] [place] [address]Dr. Bhavani Barragan ATYPICAL LYMPH % Normal [facility] Comment on above: Performed By: #### C OMID ####[facility] Uqxggadaki9104 [place] [address]Dr. Bhavani Barragan BAND # Normal 0.0-0.3 [facility] Comment on above: Performed By: #### C OMID ####[facility] Ozgnpargou[address] [place], [place] [address]Dr. Bhavani Barragan BAND % Normal 0-5 [facility] Comment on above: Performed By: #### C OMID ####[facility] Bamvjinfxe[address] [place], [place] [address]Dr. Bhavani Barragan BASOM # 0.00 103/ul Normal 0.00-0.10 [facility] Comment on above: Performed By: #### C OMID ####[facility] Ypkdflibwj[address] [place], [place] [address]Dr. Bhavani Barragan BASOM % 0.0 % Critically low 0.2-2.0 [facility] Comment on above: Performed By: #### C OMID ####[facility] Oadikojqqq[address] [place], [place] [address]Dr. Bhavani Barragan BLAST # Normal [facility] Comment on above: Performed By: #### C OMID ####[facility] Vzjkmihzll34[address] [place] [address]Dr. Bhavani Barragan BLAST % Normal [facility] Comment on above: Performed By: #### C OMID ####[facility] Gwvtkrmaaw63[address] [place] [address]Dr. Bhavani Barragan CORRECTED WBC Normal 4.0-11.0 The [facility] Comment on above: Performed By: #### C OMID ####[facility] Hmhtgvwgxd0834 [place] [id number]. Bhavani Barragan EOS # 0.00 103/ul Normal 0.00-0.70 [facility] Comment on above: Performed By: #### C OMID ####[facility] Ftirutsbwb7742 [place] [address]Dr. Bhavani Barragan EOS% 0.0 % Critically low 0.9-7.0 [facility] Comment on above: Performed By: #### C OMID ####[facility] Zosokspigb1625 [place] [address]Dr. Bhavani Barragan HCT 39.8 % Normal 36.0-48.0 [facility] Comment on above: Performed By: #### C OMID ####[facility] Mlqqkbyybr8383 [place] [address]Dr. Bhavani Barragan HGB 12.2 g/dl Normal 12.0-16.0 [facility] Comment on above: Performed By: #### C OMID ####[facility] Jaqmjvtekt1527 [place] [address]Dr. Bhavani Barragan LYMPHM # 0.56 103/ul Critically low 1.20-3.80 The [facility] Comment on above: Performed By: #### C OMID ####[facility] Tftclvfzzz9259 [place] [id number]. Bhavani Barragan LYMPHM% 2.0 % Critically low 20.5-60.0 [facility] Comment on above: Performed By: #### C OMID ####[facility] Qgdoncjhli9694 [place] [phone]. Bhavani Barragan MCH 29.7 pg Normal 26.7-34.0 [facility] Comment on above: Performed By: #### C OMID ####[facility] Jlsahqlwvn1712 [place] [phone]. Bhavani Barragan MCHC 30.7 g/dl Normal 29.9-35.2 [facility] Comment on above: Performed By: #### C OMID ####[facility] [address]zbp[address] [place], [place] [address]Dr. Bhavani Barragan MCV 96.8 fL Normal 81.0-99.0 [facility] Comment on above: Performed By: #### C OMID ####[facility] A[address] [place], [place] [address]Xy. Bhavani Barragan METAMYELOCYTE # Normal The [facility] Comment on above: Performed By: #### C OMID ####[facility] Acmzrhqfdf7650 [place], [place] [address]Ki. Bhavani Barragan METAMYELOCYTE % Normal The [facility] Comment on above: Performed By: #### C OMID ####[facility] Burxetjbnw5052 [place], [place] [address]Wu. Bhavani Barragan MONOM# 0.28 103/ul Critically low 0.30-0.80 The [facility] Comment on above: Performed By: #### C OMID ####[facility] Dtexbheohm8061 [place] [address]Dr. Bhavani Barragan MONOM% 1.0 % Critically low 1.7-12.0 [facility] Comment on above: Performed By: #### C OMDI ####[facility] Oicayyyide7278 [place] [phone]. Bhavani Barragan MPV 10.2 fL Normal 9.5-13.5 [facility] Comment on above: Performed By: #### C OMID ####[facility] Gepccrrkeg4873 [place] [phone]. Bhavani Barragan MYELOCYTE # Normal [facility] Comment on above: Performed By: #### C OMID ####[facility] Zjsobfifqi9506 [place], [place] [address]Uv. Bhavani Barragan MYELOCYTE % Normal [facility] Comment on above: Performed By: #### C OMID ####[facility] Dwtremasud2089 [place] [phone]. Bhavani Barragan NRBC Normal [facility] Comment on above: Performed By: #### C OMID ####[facility] Lwjsvtsnyq2917 [place] [phone]. Bhavani Barragan PLT 371 103/ul Normal 150-450 [facility] Comment on above: Performed By: #### C BCMAN ####[facility] Rxvmmhsuyf7061 [place], [place] [address]Um. Bhavani Barragan RBC 4.11 106/ul Critically low 4.20-5.40 [facility] Comment on above: Performed By: #### C BCMAN ####[facility] Hvbsymueqk0236 [place], [place] [address]Rg. Bhavani Barragan RDW 17.4 % Critically high 11.0-15.0 [facility] Comment on above: Performed By: #### C BCJERSON ####[facility] Voffgsjlst2621 [place], [place] [address]Nx. Bhavani Barragan SEG # 27.35 103/ul Critically high 1.40-6.50 [facility] Comment on above: Performed By: #### C BCJERSON ####[facility] Uszziwjkqs1412 [place], [place] [address]Ko. Bhavani Barragan SEG % 97.0 % Critically high 43.0-75.0 [facility] Comment on above: Performed By: #### C BCJERSON ####[facility] Ztzlnxbcmd5872 [place], [place] [address]Tt. Bhavani Barragan WBC 28.2 103/ul Critically high 4.0-11.0 [facility] Comment on above: Performed By: #### C BCMAN ####[facility] Lnmvjbiyxk3728 [place], [place] [address]Tw. Bhavani Barragan POINT OF CARE GLUCOSEon 05- Glucose [Mass/Vol] 92 mg/dL Normal 74-106 [facility] Comment on above: Performed By: #### P OCGLUC ####[facility] Ierswcjwpc4304 [place], [place] [address]Na. Bhavani Barragan Glucose [Mass/Vol] 122 mg/dL Critically high 74-106 [facility] Comment on above: Result Comment: Foll ow Protocol Performed By: #### P OCGLUC ####[facility] Pwvwnxgdnm4333 [place] [phone]. Bhavani Barragan Glucose [Mass/Vol] 107 mg/dL Critically high 74-106 T [facility] [place] Comment on above: Performed By: #### P OCGLUC ####[facility] Bkgjscflro[address] [place], [place] [address]Dr. Bhavani Barragan PROF 14(COMP METB)on 022 Albumin [Mass/Vol] 2.0 g/dL Critically low 3.4-5.0 Th e [facility] Comment on above: Performed By: #### C MP ####[facility] Qeqkimghwt[address] [place], [place] [address]Dr. Bhavani Barragan Albumin/Globulin [Mass ratio] 0.5 {ratio} Normal [facility] Comment on above: Performed By: #### C MP ####[facility] Hjcdozcxkh[address] [place], [place] [address]Dr. Bhavani Barragan ALP [Catalytic activity/Vol] 298 U/L Critically high 46-116 [facility] Comment on above: Performed By: #### C MP ####[facility] Utevvcdect[address] [place], [place] [address]Dr. Bhavani Barragan ALT [Catalytic activity/Vol] 94 U/L Critically high 14-59 [facility] Comment on above: Performed By: #### C MP ####[facility] Rkxgfixtli[address] [place], [place] [address]Dr. Bhavani Barragan Anion gap [Moles/Vol] 12.8 mmol/L Normal [facility] Comment on above: Performed By: #### C MP ####[facility] Izekarkzqg80[address] [place], [place] [address]Dr. Bhavani Barragan AST [Catalytic activity/Vol] 73 U/L Critically high 15-37 [facility] Comment on above: Performed By: #### C MP ####[facility] Mxnniorlry9[address] [place], [place] [address]Dr. Bhavani Barragan Bilirubin [Mass/Vol] 3.6 mg/dL Critically high 0.2-1.0 [facility] Comment on above: Performed By: #### C MP ####[facility] Uypfzsbovb[address] [place], [place] [address]Dr. Bhavani Barragan Calcium [Mass/Vol] 7.8 mg/dL Critically low 8.5-10.1 Th [facility] Comment on above: Performed By: #### C MP ####[facility] Hwjjpdatas8[address] [place], [place] [address]Dr. Bhavani Barragan Chloride [Moles/Vol] 103 mmol/L Normal 98-107 [facility] Comment on above: Performed By: #### C MP ####[facility] Nusqobdppf70[address] [place], [place] [address]Dr. Bhavani Barragan CO2 [Moles/Vol] 25.2 mmol/L Normal 21.0-32.0 [facility] Comment on above: Performed By: #### C MP ####[facility] Lfelpwboxp46[address] [place], [place] [address]Dr. Bhavani Barragan Creatinine [Mass/Vol] 1.38 mg/dL Critically high 0.55-1.02 [facility] Comment on above: Performed By: #### C MP ####[facility] Pwoqhbcqkr0140[address] [place], [place] [address]Dr. Bhavani Barragan EGFR-AF ICELANDIC 44 mL/min/1.73m2 Critically low >=60 [facility] Comment on above: Performed By: #### C MP ####[facility] Owcitdwmro3660[address] [place], [place] [address]Dr. Bhavani Barragan EGFR-NON AF ICELANDIC 37 mL/min/1.73m2 Critically low >=60 [facility] Comment on above: Performed By: #### C MP ####[facility] Zazuraukim76[address] [place], [place] [address]Dr. Bhavani Barragan Globulin (S) [Mass/Vol] 4.1 g/dL Normal [facility] Comment on above: Performed By: #### C MP ####[facility] Wdglgzberr[address] [place], [place] [address]Dr. Bhavani Barragan Glucose [Mass/Vol] 109 mg/dL Critically high 74-106 T [facility] [place] Comment on above: Performed By: #### C MP ####[facility] Ickzzckbtq[address] [place], [place] [address]Dr. Bhavani Barragan Potassium [Moles/Vol] 4.0 mmol/L Normal 3.5-5.1 [facility] Comment on above: Performed By: #### C MP ####[facility] Lfszzaakyu[address] [place], [place] [address]Dr. Bhavani Barragan Protein [Mass/Vol] 6.1 g/dL Critically low 6.4-8.2 Th e [facility] Comment on above: Performed By: #### C MP ####[facility] Xdvjaifiam325[address] [place], [place] [address]Dr. Bhavani Barragan Sodium [Moles/Vol] 137 mmol/L Normal 136-145 [facility] Comment on above: Performed By: #### C MP ####[facility] Xoprqgltwi679[address] [place], [place] [address]Dr. Bhavani Barragan Urea nitrogen [Mass/Vol] 22.0 mg/dL Critically high 7.0-18.0 [facility] Comment on above: Performed By: #### C MP ####[facility] Nlutespdky5[address] [place], [place] [address]Dr. Bhavani Barragan Urea nitrogen/Creatinine [Mass ratio] 15.9 mg/mg Normal [facility] Comment on above: Performed By: #### C MP ####[facility] Qeohlxpnee[address] [place], [place] [address]Dr. Bhavani Barragan PROTIMEon 03-30-2022 INR Coag (PPP) [Relative time] 1.28 {INR} Normal [facility] Comment on above: Performed By: #### P T, PTT ####[facility] Nypwrbdmvn[address] [place], [place] [address]Dr. Bhavani Barragan INR GUIDELINES SEE BELOW Normal [facility] Comment on above: Result Comment: WALKER RED INR: 2.0 - 3.0 CONDITIONS NOT LISTED BELOW 2.5 - 3.5 FOR PROSTHETIC HEART VALVE REPLACEMENT 2.5 - 3.5 RECURRENT THROMBOSIS Performed By: #### P T, PTT ####[facility] Mkngxakfjb[address] [place], [place] [address]Dr. Bhavani Barragan PT Coag (PPP) [Time] 13.6 s Critically high 9.0-11.6 [facility] Comment on above: Performed By: #### P T, PTT ####[facility] Tcolpmpdvk6[address] [place], [place] [address]Dr. Bhavani Barragan PTTon 03-30-2022 aPTT Coag (Bld) [Time] 34.9 s Normal 22.3-36.2 [facility] Comment on above: Performed By: #### P T, PTT ####[facility] Wlnelsdoqn8426[address] [place], [place] [address]Dr. Bhavani Barragan US SINGLE QUAD RT UPPERon US SINGLE QUAD RT UPPER Normal [facility] AMMONIAon 03-29-2022 Ammonia (P) [Moles/Vol] 17 umol/L Normal 11-32 [facility] Comment on above: Performed By: #### A MM ####[facility] Zgkattldgq607[address] [place], [place] [address]Dr. Bhavani Barragan CBC W MANUAL DIFFon 03-29-20 ANISOCYTOSIS 2+ Normal [facility] Comment on above: Performed By: #### C OMID ####[facility] Uczudxsetj[address] [place], [place] [address]Dr. Bhavani Laurel ATYPICAL LYMPH # Normal [facility] Comment on above: Performed By: #### C OMID ####[facility] Jkvlozipdb[address] [place], [place] [address]Dr. Jayceeroxi Laurel ATYPICAL LYMPH % Normal [facility] Comment on above: Performed By: #### C BCJERSON ####[facility] Sadmxdhlyy7[address] [place], [place] [address]Dr. Bhavani Barragan BAND # 1.2 103/ul Critically high 0.0-0.3 [facility] Comment on above: Performed By: #### C BCJERSON ####[facility] Yvbbhkjwst89[address] [place], [place] [address]Dr. Bhavani Barragan BAND % 4 % Normal 0-5 [facility] Comment on above: Performed By: #### C BCMAN ####[facility] Jayncjxrzk1112[address] [place], [place] [address]Dr. Bhavani Barragan BASOM # 0.00 103/ul Normal 0.00-0.10 [facility] Comment on above: Performed By: #### C OMID ####[facility] Xwsbuhxzma9000 [place] [address]Dr. Bhavani Barragan BASOM % 0.0 % Critically low 0.2-2.0 [facility] Comment on above: Performed By: #### C BCJERSON ####[facility] Eukouhouxa0339 [place] [address]Dr. Bhavani Barragan BLAST # Normal [facility] Comment on above: Performed By: #### C OMID ####[facility] Dikmqqjmkg9040 [place] [address]Dr. Bhavani Barragan BLAST % Normal [facility] Comment on above: Performed By: #### C OMID ####[facility] Xnllljyori05[address] [place], [place] [address]Dr. Bhavani Barragan CORRECTED WBC Normal 4.0-11.0 The [facility] Comment on above: Performed By: #### C OMID ####[facility] Wfplhpfsob72[address] [place], [place] [address]Dr. Bhavani Barragan EOS # 0.00 103/ul Normal 0.00-0.70 [facility] Comment on above: Performed By: #### C OMID ####[facility] Zciuwstjiy174[address] [place], [place] [address]Dr. Bhavani Barragan EOS% 0.0 % Critically low 0.9-7.0 [facility] Comment on above: Performed By: #### C OMID ####[facility] Xgdxjyhmeu[address] [place], [place] [address]Dr. Bhavani Barragan HCT 41.4 % Normal 36.0-48.0 [facility] Comment on above: Performed By: #### C OMID ####[facility] Vvsfltbgog994[address] [place], [place] [address]Dr. Bhavani Barragan HGB 12.6 g/dl Normal 12.0-16.0 [facility] Comment on above: Performed By: #### C OMID ####[facility] Icgotakhdb007[address] [place], [place] [address]Dr. Bhavani Barragan LYMPHM # 0.62 103/ul Critically low 1.20-3.80 The [facility] Comment on above: Performed By: #### C OMID ####[facility] Haodndnufy8925 [place] [address]Dr. Bhavani Barragan LYMPHM% 2.0 % Critically low 20.5-60.0 [facility] Comment on above: Performed By: #### C OMID ####[facility] Loqudhmbtg9517 [place] [address]Dr. Bhavani Barragan MCH 29.6 pg Normal 26.7-34.0 [facility] Comment on above: Performed By: #### C OMID ####[facility] Civdrxtlyq[address] [place], [place] [address]Dr. Bhavani Barragan MCHC 30.4 g/dl Normal 29.9-35.2 [facility] Comment on above: Performed By: #### Jany ANNE ####[facility] Qvgkfahbpk604[address] [place], [place] [address]Dr. Bhavani Barragan MCV 97.4 fL Normal 81.0-99.0 [facility] Comment on above: Performed By: #### Jany ANNE ####[facility] Bbxwiofxnl[address] [place], [place] [address]Dr. Bhavani Barragan METAMYELOCYTE # Normal The [facility] Comment on above: Performed By: #### Jany ANNE ####[facility] Fcddfskbpj7636 [place] [address]Dr. Bhavani Barragan METAMYELOCYTE % Normal [facility] Comment on above: Performed By: #### C OMID ####[facility] Sligqmimhp0449 [place] [address]Dr. Bhavani Barragan MONOM# 0.93 103/ul Critically high 0.30-0.80 [facility] Comment on above: Performed By: #### C OMID ####[facility] Mwfzrogfot5376 [place] [address]Dr. Bhavani Barragan MONOM% 3.0 % Normal 1.7-12.0 [facility] Comment on above: Performed By: #### C OMID ####[facility] Sawzwatvzs9[address] [place], [place] [address]Fp. Bhavani Barragan MPV 9.7 fL Normal 9.5-13.5 [facility] Comment on above: Performed By: #### C OMID ####[facility] Uuebghjlyb4732 [place], [place] [address]Tp. Bhavani Barragan MYELOCYTE # Normal [facility] Comment on above: Performed By: #### C OMID ####[facility] Mbkwkedqwo1776 [place], [place] [address]Kh. Bhavani Barragan MYELOCYTE % Normal [facility] Comment on above: Performed By: #### C OMID ####[facility] Toopirpazt5[address] [place] [address]Dr. Bhavani Barragan NRBC Normal [facility] Comment on above: Performed By: #### C OMID ####[facility] Rpilmeznba6065 [place] [address]Dr. Bhavani Barragan PLT 362 103/ul Normal 150-450 [facility] Comment on above: Performed By: #### C OMID ####[facility] Nuzbdxcmyq4242 [place] [address]Dr. Bhavani Barragan RBC 4.25 106/ul Normal 4.20-5.40 [facility] Comment on above: Performed By: #### C OMID ####[facility] Dumlmtdaoy0227 [place] [address]Dr. Bhavani Barragan RDW 17.2 % Critically high 11.0-15.0 The [facility] Comment on above: Performed By: #### C OMID ####[facility] Uvqjwzrqir5525 [place], [place] [address]Pa. Bhavani Barragan SEG # 28.12 103/ul Critically high 1.40-6.50 [facility] Comment on above: Performed By: #### C OMID ####[facility] Oxogdmktfj5904 [place] [address]Dr. Bhavani Barragan SEG % 91.0 % Critically high 43.0-75.0 [facility] Comment on above: Performed By: #### C BCMAN ####[facility] Yuwpxtdcox4921 [place] [address]Dr. Bhavani Barragan WBC 30.9 103/ul Critically high 4.0-11.0 [facility] Comment on above: Result Comment: repe ated Performed By: #### C BCMAN ####[facility] Fyqmdnkblg3302 [place] [address]Dr. Bhavani Barragan CT ABD/PELV W CONon 03-29-[address] ABD/PELV W CON Normal [facility] POINT OF CARE GLUCOSEon 03-18 Glucose [Mass/Vol] 102 mg/dL Normal 74-106 [facility] Comment on above: Performed By: #### P OCGLUC ####[facility] Ndgxfoxvtf0472 [place] [address]Dr. Bhavani Barragan Glucose [Mass/Vol] 100 mg/dL Normal 74-106 [facility] Comment on above: Performed By: #### P OCGLUC ####[facility] Kvilcbvsuy0159 [place] [address]Dr. Bhavani Barragan Glucose [Mass/Vol] 132 mg/dL Critically high 74-106 [facility] Comment on above: Performed By: #### P OCGLUC ####[facility] Daajutwzsb8656 [place] [address]Dr. Bhavani Barragan Glucose [Mass/Vol] 130 mg/dL Critically high 74-106 [facility] Comment on above: Performed By: #### P OCGLUC ####[facility] Omspxbjdpd2523 [place] [address]Dr. Bhavani Laurel PROF 14(COMP METB)on 022 Albumin [Mass/Vol] 2.1 g/dL Critically low 3.4-5.0 [facility] Comment on above: Performed By: #### C MP ####[facility] Rcydfyiwbx5337 [place] [address]Dr. Bhavani Barragan Albumin/Globulin [Mass ratio] 0.6 {ratio} Normal [facility] Comment on above: Performed By: #### C MP ####[facility] Mfblfhucby5958 [place] [address]Dr. Bhavani Barragan ALP [Catalytic activity/Vol] 277 U/L Critically high 46-116 [facility] Comment on above: Performed By: #### C MP ####[facility] Zqbpvcwedt3968 [place] [address]Dr. Bhavani Barragan ALT [Catalytic activity/Vol] 90 U/L Critically high 14-59 [facility] Comment on above: Performed By: #### C MP ####[facility] Otqmwmikcz6886 [place] [address]Dr. Bhavani Barragan Anion gap [Moles/Vol] 13.1 mmol/L Normal [facility] Comment on above: Performed By: #### C MP ####[facility] Spykzfxzfu7048 [place] [address]Dr. Bhavani Barragan AST [Catalytic activity/Vol] 56 U/L Critically high 15-37 [facility] Comment on above: Performed By: #### C MP ####[facility] Qwzhcguumq[address] [place], [place] [address]Dr. Bhavani Barragan Bilirubin [Mass/Vol] 4.1 mg/dL Critically high 0.2-1.0 [facility] Comment on above: Performed By: #### C MP ####[facility] Rftbioygzb[address] [place], [place] [address]Dr. Bhavani Barragan Calcium [Mass/Vol] 7.9 mg/dL Critically low 8.5-10.1 [facility] Comment on above: Performed By: #### C MP ####[facility] Kipipswgdy0693 [place] [address]Dr. Bhavani Barragan Chloride [Moles/Vol] 103 mmol/L Normal 98-107 [facility] Comment on above: Performed By: #### C MP ####[facility] Myaoncirot9217 [place] [address]Dr. Bhavani Barragan CO2 [Moles/Vol] 25.9 mmol/L Normal 21.0-32.0 The [facility] Comment on above: Performed By: #### C MP ####[facility] Fwbfjwryoo1595 [place] [phone]. Bhavani Barragan Creatinine [Mass/Vol] 1.32 mg/dL Critically high 0.55-1.02 [facility] Comment on above: Performed By: #### C MP ####[facility] Chukbbqgyl8239 [place] [phone]. Bhavani Barragan EGFR-AF ICELANDIC 47 mL/min/1.73m2 Critically low >=60 [facility] Comment on above: Performed By: #### C MP ####[facility] Zqzdmjfogn6604 [place] [phone]. Bhavani Barragan EGFR-NON AF ICELANDIC 39 mL/min/1.73m2 Critically low >=60 [facility] Comment on above: Performed By: #### C MP ####[facility] Wnitjulnev3071 [place] [id number]. Bhavani Barragan Globulin (S) [Mass/Vol] 3.7 g/dL Normal [facility] Comment on above: Performed By: #### C MP ####[facility] Uhllzygecn2651 [place] [id number]. Bhavani Barragan Glucose [Mass/Vol] 133 mg/dL Critically high 74-106 [facility] Comment on above: Performed By: #### C MP ####[facility] Bjchjvnnft3114 [place] [phone]. Bhavani Barragan Potassium [Moles/Vol] 4.0 mmol/L Normal 3.5-5.1 [facility] Comment on above: Performed By: #### C MP ####[facility] Zefessnwpx3002 [place] [phone]. Bhavani Barragan Protein [Mass/Vol] 5.8 g/dL Critically low 6.4-8.2 [facility] Comment on above: Performed By: #### C MP ####[facility] Gttqttigrz8152 [place] [phone]. Bhavani Barragan Sodium [Moles/Vol] 138 mmol/L Normal 136-145 [facility] Comment on above: Performed By: #### C MP ####[facility] Ongduedyvs3870 [place] [address]Dr. Bhavani Barragan Urea nitrogen [Mass/Vol] 19.0 mg/dL Critically high 7.0-18.0 [facility] Comment on above: Performed By: #### C MP ####[facility] Jgzrejxlpj2012 [place] [address]Dr. Bhavani Barragan Urea nitrogen/Creatinine [Mass ratio] 14.4 mg/mg Normal [facility] Comment on above: Performed By: #### C MP ####[facility] Qvlfvxoesa9[address] [place], [place] [address]Dr. Bhavani Barragan PROTIMEon 03-29-2022 INR Coag (PPP) [Relative time] 1.33 {INR} Normal [facility] Comment on above: Performed By: #### P T, PTT ####[facility] Sfhmrikjpb[address] [place], [place] [address]Dr. Jayceeroxi Barragan INR GUIDELINES SEE BELOW Normal [facility] Comment on above: Result Comment: WALKER RED INR: 2.0 - 3.0 CONDITIONS NOT LISTED BELOW 2.5 - 3.5 FOR PROSTHETIC HEART VALVE REPLACEMENT 2.5 - 3.5 RECURRENT THROMBOSIS Performed By: #### P T, PTT ####[facility] Gqjyqhitlb[address] [place], [place] [address]Dr. Bhavani Barragan PT Coag (PPP) [Time] 14.1 s Critically high 9.0-11.6 [facility] Comment on above: Performed By: #### P T, PTT ####[facility] Jbhryebffu64[address] [place], [place] [address]Dr. Bhavani Barragan PTTon 03-29-2022 aPTT Coag (Bld) [Time] 36.0 s Normal 22.3-36.2 [facility] Comment on above: Performed By: #### P T, PTT ####[facility] Vpwjotnruc[address] [place], [place] [address]Dr. Bhavani Barragan AMMONIAon 03-28-2022 Ammonia (P) [Moles/Vol] 22 umol/L Normal -32 [facility] Comment on above: Performed By: #### A MM ####[facility] Mdeyymrymj2048 [place] [address]Dr. Bhavani Barragan CBC W MANUAL DIFFon 03-28-20 22 ANISOCYTOSIS 2+ Normal [facility] Comment on above: Performed By: #### C BCMAN ####[facility] Orqahjimoc9170 [place] [address]Dr. Bhavani Barragan ATYPICAL LYMPH # Normal The [facility] Comment on above: Performed By: #### C BCMAN ####[facility] Fcyowvmput8731 [place] [address]Dr. Bhavani Barragan ATYPICAL LYMPH % Normal [facility] Comment on above: Performed By: #### C BCMAN ####[facility] Zrdipfrtir11[address] [place], [place] [address]Dr. Bhavani Barragan BAND # 0.8 103/ul Critically high 0.0-0.3 The [facility] Comment on above: Performed By: #### C BCMAN ####[facility] Qvcinyccdv01[address] [place], [place] [address]Dr. Bhavani Barragan BAND % 3 % Normal 0-5 [facility] Comment on above: Performed By: #### C BCJERSON ####[facility] Cfesbjnkaw192[address] [place], [place] [address]Dr. Bhavani Barragan BASOM # 0.00 103/ul Normal 0.00-0.10 [facility] Comment on above: Performed By: #### C BCMAN ####[facility] Okijdbavjx27[address] [place], [place] [address]Dr. Bhavani Barragan BASOM % 0.0 % Critically low 0.2-2.0 [facility] Comment on above: Performed By: #### C BCMAN ####[facility] Dfsviuldte[address] [place], [place] [address]Dr. Bhavani Barragan BLAST # Normal [facility] Comment on above: Performed By: #### C BCMAN ####[facility] Xoyuukfdox44[address] [place], [place] [address]Dr. Bhavani Barragan BLAST % Normal [facility] Comment on above: Performed By: #### C BCMAN ####[facility] Pyyxhqygud17[address] [place], [place] [address]Ql. Bhavani Barragan CORRECTED WBC Normal 4.0-11.0 The [facility] Comment on above: Performed By: #### C OMID ####[facility] Ekkoqbelfh9798 [place] [phone]. Bhavani Barragan EOS # 0.00 103/ul Normal 0.00-0.70 [facility] Comment on above: Performed By: #### C OMID ####[facility] Mgqnhcatox8340 [place] [phone]. Bhavani Barragan EOS% 0.0 % Critically low 0.9-7.0 [facility] Comment on above: Performed By: #### C OMID ####[facility] Ifyxjqcycu3259 [place] [phone]. Bhavani Barragan HCT 38.9 % Normal 36.0-48.0 [facility] Comment on above: Performed By: #### C OMID ####[facility] Xwonseedqb0111 [place] [phone]. Bhavani Barragan HGB 11.9 g/dl Critically low 12.0-16.0 [facility] Comment on above: Performed By: #### C OMID ####[facility] Qqsfdlorxl0058 [place] [phone]. Bhavani Barragan LYMPHM # 0.78 103/ul Critically low 1.20-3.80 The [facility] Comment on above: Performed By: #### C OMID ####[facility] Navmxumnfs1793 [place] [phone]. Bhavani Barragan LYMPHM% 3.0 % Critically low 20.5-60.0 [facility] Comment on above: Performed By: #### C OMID ####[facility] Tqseixmclp4303 [place] [phone]. Bhavani Barragan MCH 29.8 pg Normal 26.7-34.0 [facility] Comment on above: Performed By: #### C OMID ####[facility] Pwmesftggd[address] [place], [place] [address]Dr. Bhavani Barragan MCHC 30.6 g/dl Normal 29.9-35.2 [facility] Comment on above: Performed By: #### C OMID ####[facility] Rvzbcyogwi0766 [place] [phone]. Bhavani Barragan MCV 97.3 fL Normal 81.0-99.0 [facility] Comment on above: Performed By: #### C OMID ####[facility] Nxrzfvehft7564 [place] [phone]. Bhavani Barragan METAMYELOCYTE # Normal [facility] Comment on above: Performed By: #### C OMID ####[facility] Schyrbobzz6666 [place] [phone]. Bhavani Barragan METAMYELOCYTE % Normal [facility] Comment on above: Performed By: #### C OMID ####[facility] Cejgllomyz0830 [place] [phone]. Bhavani Barragan MONOM# 0.78 103/ul Normal 0.30-0.80 [facility] Comment on above: Performed By: #### C OMID ####[facility] Ypbfcfkwxb7977 [place] [phone]. Bhavani Barragan MONOM% 3.0 % Normal 1.7-12.0 [facility] Comment on above: Performed By: #### C OMID ####[facility] Dwhbwessgx0679 [place] [phone]. Bhavani Barragan MPV 10.6 fL Normal 9.5-13.5 [facility] Comment on above: Performed By: #### C OMID ####[facility] Zucsfoyrql2252 [place] [phone]. Bhavani Barragan MYELOCYTE # Normal [facility] Comment on above: Performed By: #### C OMID ####[facility] Valuemkudt5805 [place] [phone]. Bhavani Barragan MYELOCYTE % Normal [facility] Comment on above: Performed By: #### C OMID ####[facility] Pyrtymb[address] [place], [place] [address]Dr. Bhavani Barragan NRBC Normal [facility] Comment on above: Performed By: #### C OMID ####[facility] Kbdlojxbas1479 [place], [place] [address]Fz. Bhavani Barragan PLT 402 103/ul Normal 150-450 [facility] Comment on above: Performed By: #### C OMID ####[facility] Lcebobqjag6625 [place], [place] [address]LcLydia Bhavani Laurel RBC 4.00 106/ul Critically low 4.20-5.40 [facility] Comment on above: Performed By: #### C OMID ####[facility] Apboffytzj5532 [place], [place] [address]Zi. Bhavani Laurel RDW 16.7 % Critically high 11.0-15.0 [facility] Comment on above: Performed By: #### C OMID ####[facility] Huuurlizfc1639 [place], [place] [address]PkLydia Barragan SEG # 23.66 103/ul Critically high 1.40-6.50 [facility] Comment on above: Performed By: #### C OMID ####[facility] Dgszijlhjf8983 [place], [place] [address]It. Bhavani Barragan SEG % 91.0 % Critically high 43.0-75.0 [facility] Comment on above: Performed By: #### C OMID ####[facility] Tvothmgycg8010 [place], [place] [address]SbLydia Bhavani [place] WBC 26.0 103/ul Critically high 4.0-11.0 [facility] Comment on above: Performed By: #### C OMID ####[facility] Sqvnmamtul0844 [place], [place] [address]DvLydia Barragan PROF 14(COMP METB)on 022 Albumin [Mass/Vol] 2.1 g/dL Critically low 3.4-5.0 [facility] Comment on above: Performed By: #### C MP ####[facility] Nlzfisctfk2928 [place], [place] [address]OaLydia Barragan Albumin/Globulin [Mass ratio] 0.6 {ratio} Normal [facility] Comment on above: Performed By: #### C MP ####[facility] Gsrodohkrh1316 [place] [address]Dr. Bhavani Barragan ALP [Catalytic activity/Vol] 235 U/L Critically high 46-116 [facility] Comment on above: Performed By: #### C MP ####[facility] Eofcosxhdd2204 [place] [address]Dr. Bhavani Laurel ALT [Catalytic activity/Vol] 112 U/L Critically high 14-59 [facility] Comment on above: Performed By: #### C MP ####[facility] Uvehygzkht7654 [place] [address]Dr. Bhavani Barragan Anion gap [Moles/Vol] 12.3 mmol/L Normal [facility] Comment on above: Performed By: #### C MP ####[facility] Myxlhtcsiv5644 [place] [address]Dr. Bhavani Barragan AST [Catalytic activity/Vol] 57 U/L Critically high 15-37 [facility] Comment on above: Performed By: #### C MP ####[facility] Gvtafutbfi3116 [place] [address]Dr. Jayceeroxi Laurel Bilirubin [Mass/Vol] 1.6 mg/dL Critically high 0.2-1.0 [facility] Comment on above: Performed By: #### C MP ####[facility] Sgiqqjuclr2287 [place] [address]Dr. Bhavani Barragan Calcium [Mass/Vol] 7.6 mg/dL Critically low 8.5-10.1 [facility] Comment on above: Performed By: #### C MP ####[facility] Bxzstwtmxp4480 [place] [address]Dr. Bhavani Barragan Chloride [Moles/Vol] 104 mmol/L Normal 98-107 [facility] Comment on above: Performed By: #### C MP ####[facility] Jvincakusw8063 [place] [address]Dr. Bhavani Barragan CO2 [Moles/Vol] 25.5 mmol/L Normal 21.0-32.0 [facility] Comment on above: Performed By: #### C MP ####[facility] Jimojoygzi0546 [place] [phone]. Bhavani Barragan Creatinine [Mass/Vol] 1.28 mg/dL Critically high 0.55-1.02 [facility] Comment on above: Performed By: #### C MP ####[facility] Wuloovoinl7495 [place] [phone]. Bhavani Barragan EGFR-AF ICELANDIC 48 mL/min/1.73m2 Critically low >=60 [facility] Comment on above: Performed By: #### C MP ####[facility] Hkxtxipdpc4010 [place] [phone]. Bhavani Barragan EGFR-NON AF ICELANDIC 40 mL/min/1.73m2 Critically low >=60 [facility] Comment on above: Performed By: #### C MP ####[facility] Nnlfiiaqve1045 [place] [phone]. Bhavani Barragan Globulin (S) [Mass/Vol] 3.7 g/dL Normal [facility] Comment on above: Performed By: #### C MP ####[facility] Rsblyqxkkh2345 [place] [phone]. Bhavani Barragan Glucose [Mass/Vol] 69 mg/dL Critically low 74-106 [facility] Comment on above: Performed By: #### C MP ####[facility] Yjjzxoipfd8392 [place] [phone]. Bhavani Barragan Potassium [Moles/Vol] 3.8 mmol/L Normal 3.5-5.1 [facility] Comment on above: Performed By: #### C MP ####[facility] Lzjzclxtbp0679 [place] [phone]. Bhavani Barragan Protein [Mass/Vol] 5.8 g/dL Critically low 6.4-8.2 [facility] Comment on above: Performed By: #### C MP ####[facility] Lcajpunyxw3220 [place] [phone]. Bhavani Barragan Sodium [Moles/Vol] 138 mmol/L Normal 136-145 [facility] Comment on above: Performed By: #### C MP ####[facility] Numzfrpchx6574 [place] [address]Dr. Bhavani Barragan Urea nitrogen [Mass/Vol] 18.0 mg/dL Normal 7.0-18.0 [facility] Comment on above: Performed By: #### C MP ####[facility] Uqyrohnlzi96[address] [place], [place] [address]Dr. Bhavani Barragan Urea nitrogen/Creatinine [Mass ratio] 14.1 mg/mg Normal [facility] Comment on above: Performed By: #### C MP ####[facility] Yordhmwhuq[address] [place], [place] [address]Dr. Bhavani Barragan PROTIMEon 03-28-2022 INR Coag (PPP) [Relative time] 1.38 {INR} Normal [facility] Comment on above: Performed By: #### P T, PTT ####[facility] Absgmxsyyl66[address] [place], [place] [address]Dr. Bhavani Barragan INR GUIDELINES SEE BELOW Normal [facility] Comment on above: Result Comment: WALKER RED INR: 2.0 - 3.0 CONDITIONS NOT LISTED BELOW 2.5 - 3.5 FOR PROSTHETIC HEART VALVE REPLACEMENT 2.5 - 3.5 RECURRENT THROMBOSIS Performed By: #### P T, PTT ####[facility] Bhugpksjco4037[address] [place], [place] [address]Dr. Bhavani Barragan PT Coag (PPP) [Time] 14.6 s Critically high 9.0-11.6 [facility] Comment on above: Performed By: #### P T, PTT ####[facility] Xfbgflgwrb33[address] [place], [place] [address]Dr. Bhavani Barragan PTTon 03-28-2022 aPTT Coag (Bld) [Time] 36.6 s Critically high 22.3-36.2 [facility] Comment on above: Performed By: #### P T, PTT ####[facility] Bozpqduvti8[address] [place], [place] [address]Dr. Bhavani Barragan RESPIRATORY PANEL PLUSon Adenovirus Not detected Normal NOT DETECTED [facility] Comment on above: Performed By: #### R SPLUS ####[facility] Sozlaiieue4898 [place] [address]Dr. Bhavani Barragan B. Parapertusis Not detected Normal NOT DETECTED [facility] Comment on above: Performed By: #### R SPLUS ####[facility] Gobxzsgimj9612 [place] [address]Dr. Bhavani Barragan B. Pertussis Not detected Normal NOT DETECTED [facility] Comment on above: Performed By: #### R SPLUS ####[facility] Rkgspymozs040[address] [place], [place] [address]Dr. Bhavani Barragan Chlamydia Pneumoniae Not detected Normal NOT DETECTED [facility] Comment on above: Performed By: #### R SPLUS ####[facility] Nsyiuqpmlk3425[address] [place], [place] [address]Dr. Bhavani Barragan Coronavirus 229E Not detected Normal NOT DETECTED [facility] Comment on above: Performed By: #### R SPLUS ####[facility] Zfygfyoehn77[address] [place], [place] [address]Dr. roxi Barragan Coronavirus HKU1 Not detected Normal NOT DETECTED [facility] Comment on above: Performed By: #### R SPLUS ####[facility] Hqbhztnvjc1564[address] [place], [place] [address]Dr. Bhavani Barragan Coronavirus NL63 Not detected Normal NOT DETECTED [facility] Comment on above: Performed By: #### R SPLUS ####[facility] Fatjnqifpt698[address] [place], [place] [address]Dr. Bhavani Barragan Coronavirus OC43 Not detected Normal NOT DETECTED [facility] Comment on above: Performed By: #### R SPLUS ####[facility] Sishwybzcj54[address] [place], [place] [address]Dr. Bhavani Barragan Influenza A H1 2009 Not detected Normal NOT DETECTED [facility] Comment on above: Performed By: #### R SPLUS ####[facility] Reseceaczq8764[address] [place], [place] [address]Dr. Bhavani Barragan Influenza A H3 Not detected Normal NOT DETECTED The [facility] Comment on above: Performed By: #### R SPLUS ####[facility] Wbqrkmqvsk3164 [place] [address]Dr. Bhavani Barragan Influenza B Not detected Normal NOT DETECTED [facility] Comment on above: Performed By: #### R SPLUS ####[facility] Pavmaocavr2820 [place] [address]Dr. Bhavani Barragan Metapneumovirus Not detected Normal NOT DETECTED [facility] Comment on above: Performed By: #### R SPLUS ####[facility] Tcxwjkrhbk5577 [place] [address]Dr. Jayceeroxi Barragan Mycoplas. Pneumoniae Not detected Normal NOT DETECTED [facility] Comment on above: Performed By: #### R SPLUS ####[facility] Bzatdbldjq[address] [place], [place] [address]Dr. Bhavani Barragan Parainfluenza 1 Not detected Normal NOT DETECTED [facility] Comment on above: Performed By: #### R SPLUS ####[facility] Gxkxpalnud[address] [place], [place] [address]Dr. Bhavani Barragan Parainfluenza 2 Not detected Normal NOT DETECTED [facility] Comment on above: Performed By: #### R SPLUS ####[facility] Vkrxbgxflb11[address] [place], [place] [address]Dr. Bhavani Barragan Parainfluenza 3 Not detected Normal NOT DETECTED [facility] Comment on above: Performed By: #### R SPLUS ####[facility] Kkntsxzbuc[address] [place], [place] [address]Dr. Jayceeroxi Barragan Parainfluenza 4 Not detected Normal NOT DETECTED [facility] Comment on above: Performed By: #### R SPLUS ####[facility] Dzkbeqfjqi6840[address] [place], [place] [address]Dr. Bhavani Barragan Rhino/Enterovirus Not detected Normal NOT DETECTED [facility] Comment on above: Performed By: #### R SPLUS ####[facility] Ozcornxkkp75[address] [place], [place] [address]Dr. Bhavani Barragan RP2 Header 1 RESPIRATORY PANEL: VIRUSES Normal [facility] Comment on above: Performed By: #### R SPLUS ####[facility] Rwjxthqver8714 [place] [address]Dr. Bhavani Barragan RP2 Header 2 RESPIRATORY PANEL: BACTERIA Normal [facility] Comment on above: Performed By: #### R SPLUS ####[facility] Hjolhhzmbe0[address] [place], [place] [address]Dr. Bhavani Barragan RSV Not detected Normal NOT DETECTED [facility] Comment on above: Performed By: #### R SPLUS ####[facility] Jbouvwtufr803[address] [place], [place] [address]Dr. Bhavani Barragan SARS-CoV-2 (COVID-19) RNA MATTHEW+probe Ql (Unsp spec) Not detected Normal NOT DETECTED [facility] Comment on above: Performed By: #### R SPLUS ####[facility] Lonlvqekdr18[address] [place], [place] [address]Dr. Bhavani Barragan AMMONIAon 03-27-2022 Ammonia (P) [Moles/Vol] 22 umol/L Normal 11-32 [facility] Comment on above: Performed By: #### A MM ####[facility] Kededxuntt10[address] [place], [place] [address]Dr. Bhavani Barragan BLOOD GASES BTYon 03-27-2022 02 MODE NASAL CANNULA Normal The [facility] Comment on above: Performed By: #### A BG ####[facility] Irwlzuhdfs14[address] [place], [place] [address]Dr. Bhavani Barragan ALLENS TEST Positive Normal [facility] Comment on above: Performed By: #### A BG ####[facility] Akleskfyvj49[address] [place], [place] [address]Dr. Bhavani Barragan Base excess Calc (Bld) [Moles/Vol] 1.4 mmol/L Normal -2.0-2.0 [facility] Comment on above: Performed By: #### A BG ####[facility] Zwqcpeidbr79[address] [place], [place] [address]Dr. Bhavani Barragan BIPAP PRESSURE Normal [facility] Comment on above: Performed By: #### A BG ####[facility] Lxfkmqanck374[address] [place], [place] [address]Dr. Bhavani Barragan CO2 [Moles/Vol] 50.8 mmol/L Critically high 23.0-28.0 [facility] Comment on above: Performed By: #### A BG ####[facility] Sfwbmqvbny6831 [place] [address]Dr. Bhavani Barragan CPAP Normal [facility] Comment on above: Performed By: #### A BG ####[facility] Qyfocifmtu4516 [place] [address]Dr. Bhaavni Barragan FIO2 Normal [facility] Comment on above: Performed By: #### A BG ####[facility] Rflqundaqq6[address] [place], [place] [address]Dr. Bhavani Barragan HCO3 (Bld) [Moles/Vol] 25.6 mmol/L Normal 22.0-26.0 [facility] Comment on above: Performed By: #### A BG ####[facility] Mqvhbdewbc104[address] [place], [place] [address]Dr. Bhavani Barragan LPM 5 Normal [facility] Comment on above: Performed By: #### A BG ####[facility] Lweotvmgyw[address] [place], [place] [address]Dr. Bhavani Barragan MINUTE VOLUME Normal The [facility] Comment on above: Performed By: #### A BG ####[facility] Oddcqizdms1649[address] [place], [place] [address]Dr. Bhavani Barragan Oxygen (Bld) [Partial pressure] 56.6 mm[Hg] Critically low 80.0-100.0 [facility] Comment on above: Performed By: #### A BG ####[facility] Vblpffyxap014[address] [place], [place] [address]Dr. Bhavani Barragan Oxygen saturation in Blood 91.3 % Critically low 95.0-100.0 [facility] Comment on above: Performed By: #### A BG ####[facility] Nflmfmvtwv8[address] [place], [place] [address]Dr. Bhavani Barragan PCO2 36.1 mmHg Normal 35.0-45.0 [facility] Comment on above: Performed By: #### A BG ####[facility] Wprwzktxpt1935 [place] [address]Dr. Bhavani Barragan PEEP Normal [facility] Comment on above: Performed By: #### A BG ####[facility] Galuycirrk7180 [place] [address]Dr. Bhavani Barragan pH (Bld) 7.454 [pH] Critically high 7.350-7.450 [facility] Comment on above: Performed By: #### A BG ####[facility] Edjjhafjbr7505 [place] [address]Dr. Bhavani Barragan PIP [facility] Comment on above: Performed By: #### A BG ####[facility] Kybkcuadhg[address] [place], [place] [address]Dr. Bhavani Barragan PS [facility] Comment on above: Performed By: #### A BG ####[facility] Fzlrbbkpqn5[address] [place], [place] [address]Dr. Bhavani Barragan PUNCTURE SITE LR Normal [facility] Comment on above: Performed By: #### A BG ####[facility] Gxmjehjvrz[address] [place], [place] [address]Dr. Bhavani Barragan RATE [facility] Comment on above: Performed By: #### A BG ####[facility] Tmmcwbadpy[address] [place], [place] [address]Dr. Bhavani Barragan VENT MODE [facility] Comment on above: Performed By: #### A BG ####[facility] Paxkaevsor3787 [place] [address]Dr. Bhavani Barragan [place] [facility] Comment on above: Performed By: #### A BG ####[facility] Shrwobqrxw3222 [place] [address]Dr. Bhavani Barragan CBC W MANUAL DIFFon 03-27-20 22 ANISOCYTOSIS 2+ [facility] Comment on above: Performed By: #### C BCMAN ####[facility] Aatpfeqyqz0430 [place] [address]Dr. Bhavnai Barragan ATYPICAL LYMPH # Normal [facility] Comment on above: Performed By: #### C BCJERSON ####[facility] Enjakrpazt7652 [place] [place] [id number]. Bhavani Barragan ATYPICAL LYMPH % Normal The [facility] Comment on above: Performed By: #### C BCMAN ####[facility] Hiqfdonbuc8493 [place] [phone]. Bhavani Barragan BAND # 1.5 103/ul Critically high 0.0-0.3 The [facility] Comment on above: Performed By: #### C BCMAN ####[facility] Giwdzkejax6369 [place] [address]Dr. Jayceelan Barragan BAND % 5 % Normal 0-5 [facility] Comment on above: Performed By: #### C OMID ####[facility] Wibwzxjhnb0414 [place] [address]Dr. Bhavani Barragan BASOM # 0.00 103/ul Normal 0.00-0.10 [facility] Comment on above: Performed By: #### C OMID ####[facility] Cobygsglcn3218 [place] [address]Dr. Bhavani Barragan BASOM % 0.0 % Critically low 0.2-2.0 The [facility] Comment on above: Performed By: #### C OMID ####[facility] Hqwjluzeqy[address] [place], [place] [address]Dr. Bhavani Barragan BLAST # Normal [facility] Comment on above: Performed By: #### C OMID ####[facility] Iafbkbeukg6429 [place] [address]Dr. Bhavani Barragan BLAST % Normal [facility] Comment on above: Performed By: #### C BCJERSON ####[facility] Iaytcbjkuo5631 [place] [address]Dr. Bhavani Barragan CORRECTED WBC Normal 4.0-11.0 The [facility] Comment on above: Performed By: #### C OMID ####[facility] Bgtsobptim6384 [place] [address]Dr. Bhavani Barragan EOS # 0.00 103/ul Normal 0.00-0.70 [facility] Comment on above: Performed By: #### C BCJERSON ####[facility] Atxmzmvwbi0420 [place], [place] [address]Ox. Bhavani Barragan EOS% 0.0 % Critically low 0.9-7.0 The [facility] Comment on above: Performed By: #### Jany ANNE ####[facility] Oujjajfknq7058 [place] [id number]. Bhavani Barragan HCT 41.4 % Normal 36.0-48.0 [facility] Comment on above: Performed By: #### Jany ANNE ####[facility] Makogyptdv6973 [place] [id number]. Bhavani Barragan HGB 13.0 g/dl Normal 12.0-16.0 [facility] Comment on above: Performed By: #### Jany ANNE ####[facility] Quopkmfgks8678 [place] [phone]. Bhavani Barragan LYMPHM # 0.60 103/ul Critically low 1.20-3.80 The [facility] Comment on above: Performed By: #### Jany ANNE ####[facility] Jprkvsxcng4652 [place] [id number]. Bhavani Barragan LYMPHM% 2.0 % Critically low 20.5-60.0 The [facility] Comment on above: Performed By: #### Jany ANNE ####[facility] Jyjrbpltvt2792 [place] [phone]. Bhavani Barragan MCH 30.1 pg Normal 26.7-34.0 [facility] Comment on above: Performed By: #### Jany ANNE ####[facility] Kpwklvxjyi5026 [place] [phone]. Bhavani Barragan MCHC 31.4 g/dl Normal 29.9-35.2 [facility] Comment on above: Performed By: #### Jany ANNE ####[facility] Zmfaewljkl0450 [place] [phone]. Bhavani Barragan MCV 95.8 fL Normal 81.0-99.0 [facility] Comment on above: Performed By: #### Jany ANNE ####[facility] Pjhryorzle6120 [place] [phone]. Bhavani Barragan METAMYELOCYTE # Normal The [facility] Comment on above: Performed By: #### C OMID ####[facility] Xyryzboxwz4634 [place], [place] [address]Ov. Bhavani Barragan METAMYELOCYTE % Normal The [facility] Comment on above: Performed By: #### C OIMD ####[facility] Jmefmjnogu9283 [place] [phone]. Bhavani Barragan MONOM# 0.91 103/ul Critically high 0.30-0.80 [facility] Comment on above: Performed By: #### C OMID ####[facility] Kdwbziebhj9085 [place] [phone]. Bhavani Barragan MONOM% 3.0 % Normal 1.7-12.0 [facility] Comment on above: Performed By: #### C OMID ####[facility] Xhqmebmlyw8475 [place] [phone]. Bhavani Barragan MPV 10.4 fL Normal 9.5-13.5 [facility] Comment on above: Performed By: #### C OMID ####[facility] Oukukslaxp2288 [place] [phone]. Bhavani Barragan MYELOCYTE # Normal [facility] Comment on above: Performed By: #### C OMID ####[facility] Rvwkztxpgx3555 [place] [phone]. Bhavani Barragan MYELOCYTE % Normal [facility] Comment on above: Performed By: #### C OMID ####[facility] Nhqtilqfpm4887 [place] [phone]. Bhavani Barragan NRBC Normal [facility] Comment on above: Performed By: #### C OMID ####[facility] Gwdtxmvxeh3048 [place] [phone]. Bhavani Barragan PLT 431 103/ul Normal 150-450 [facility] Comment on above: Performed By: #### C OMID ####[facility] Tsxzneyzer5887 [place] [phone]. Jayceeroxi Laurel RBC 4.32 106/ul Normal 4.20-5.40 The [facility] Comment on above: Performed By: #### C BCMAN ####[facility] Tgkguwxrgv9377 [place] [phone]. Bhavani Barragan RDW 16.4 % Critically high 11.0-15.0 [facility] Comment on above: Performed By: #### C BCMAN ####[facility] Kxousblfld6518 [place] [phone]. Bhavani Barragan SEG # 27.18 103/ul Critically high 1.40-6.50 [facility] Comment on above: Performed By: #### C BCMAN ####[facility] Zzntdlmwcg8576 [place] [phone]. Bhavani Barragan SEG % 90.0 % Critically high 43.0-75.0 [facility] Comment on above: Performed By: #### C BCMAN ####[facility] Scfvqyeayb2116 [place] [address]Dr. Bhavani Barragan WBC 30.2 103/ul Critically high 4.0-11.0 [facility] Comment on above: Performed By: #### C BCMAN ####[facility] Kqsvqcafum9541 [place] [address]Dr. Bhavani Barragan CTA CHEST WO W CONon 03-27- 022 CTA CHEST WO W CON Normal [facility] POINT OF CARE GLUCOSEon 05 0 Glucose [Mass/Vol] 94 mg/dL Normal 74-106 [facility] Comment on above: Performed By: #### P OCGLUC ####[facility] Gijsqwuhma4770 [place] [address]Dr. Bhavani Barragan Glucose [Mass/Vol] 131 mg/dL Critically high 74-106 [facility] Comment on above: Performed By: #### P OCGLUC ####[facility] Sgvtcpkqbc0137 [place] [address]Dr. Bhavani Barragan Glucose [Mass/Vol] 134 mg/dL Critically high 74-106 [facility] Comment on above: Performed By: #### P OCGLUC ####[facility] Nbwfypzsbt2802 [place] [address]Dr. Bhavani Barragan PROF 14(COMP METB)on 022 Albumin [Mass/Vol] 2.4 g/dL Critically low 3.4-5.0 [facility] Comment on above: Performed By: #### C MP ####[facility] Vnocgnwulh0589 [place] [address]Dr. Bhavani Barragan Albumin/Globulin [Mass ratio] 0.6 {ratio} Normal [facility] Comment on above: Performed By: #### C MP ####[facility] Ynijdohqez8872 [place] [address]Dr. Bhvaani Barragan ALP [Catalytic activity/Vol] 306 U/L Critically high 46-116 [facility] Comment on above: Performed By: #### C MP ####[facility] Oggjdctvsv4166 [place] [address]Dr. Bhavani Barragan ALT [Catalytic activity/Vol] 152 U/L Critically high 14-59 [facility] Comment on above: Performed By: #### C MP ####[facility] Edqjhgaprp[address] [place], [place] [address]Dr. Bhavani Barragan Anion gap [Moles/Vol] 8.1 mmol/L Normal [facility] Comment on above: Performed By: #### C MP ####[facility] Kdnjjhydob25[address] [place], [place] [address]Dr. Bhavani Barragan AST [Catalytic activity/Vol] 98 U/L Critically high 15-37 [facility] Comment on above: Performed By: #### C MP ####[facility] Jcryisdyox0812 [place] [address]Dr. Bhavani Barragan Bilirubin [Mass/Vol] 2.7 mg/dL Critically high 0.2-1.0 [facility] Comment on above: Performed By: #### C MP ####[facility] Xxmfuodels3433 [place] [address]Dr. Bhavani Barragan Calcium [Mass/Vol] 7.4 mg/dL Critically low 8.5-10.1 [facility] Comment on above: Performed By: #### C MP ####[facility] Myduolfrou1051 [place] [phone]. Bhavani Barragan Chloride [Moles/Vol] 103 mmol/L Normal 98-107 [facility] Comment on above: Performed By: #### C MP ####[facility] Uleoclzbrj0701 [place] [address]Dr. Bhavani Barragan CO2 [Moles/Vol] 24.7 mmol/L Normal 21.0-32.0 [facility] Comment on above: Performed By: #### C MP ####[facility] Eqbuunejab8881 [place] [address]Dr. Bhavani Barragan Creatinine [Mass/Vol] 1.07 mg/dL Critically high 0.55-1.02 [facility] Comment on above: Performed By: #### C MP ####[facility] Asnuahbwqa[address] [place], [place] [address]Dr. Bhavani Laurel EGFR-AF ICELANDIC 60 mL/min/1.73m2 Normal >=60 Th [facility] Comment on above: Performed By: #### C MP ####[facility] Ydmksyzkrp299[address] [place], [place] [address]Dr. Bhavani Laurel EGFR-NON AF ICELANDIC 49 mL/min/1.73m2 Critically low >=60 [facility] Comment on above: Performed By: #### C MP ####[facility] Ukvuglybrw9332 [place] [address]Dr. Bhavani Laurel Globulin (S) [Mass/Vol] 3.8 g/dL Normal [facility] Comment on above: Performed By: #### C MP ####[facility] Ztcehhsvcq8568 [place] [address]Dr. Bhavani Laurel Glucose [Mass/Vol] 140 mg/dL Critically high 74-106 [facility] [place] Comment on above: Performed By: #### C MP ####[facility] Uxjudujqwg6384 [place] [address]Dr. Bhavani Laurel Potassium [Moles/Vol] 3.8 mmol/L Normal 3.5-5.1 [facility] Comment on above: Performed By: #### C MP ####[facility] Qpkrkfvdhr27[address] [place], [place] [address]Dr. Bhavani Barragan Protein [Mass/Vol] 6.2 g/dL Critically low 6.4-8.2 Th [facility] Comment on above: Performed By: #### C MP ####[facility] Bhvapbsxdg564[address] [place], [place] [address]Dr. Bhavani Barragan Sodium [Moles/Vol] 132 mmol/L Critically low 136-145 Th [facility] Comment on above: Performed By: #### C MP ####[facility] Kzrpwewvip125[address] [place], [place] [address]Dr. Bhavani Barragan Urea nitrogen [Mass/Vol] 15.0 mg/dL Normal 7.0-18.0 [facility] Comment on above: Performed By: #### C MP ####[facility] Oxseeviovn0122[address] [place], [place] [address]Dr. Bhavani Barragan Urea nitrogen/Creatinine [Mass ratio] 14.0 mg/mg Normal [facility] Comment on above: Performed By: #### C MP ####[facility] Vhoutmanef6[address] [place], [place] [address]Dr. Bhavani Barragan PROTIMEon 03-27-2022 INR Coag (PPP) [Relative time] 1.37 {INR} Normal [facility] Comment on above: Performed By: #### P T, PTT ####[facility] Zzepctuqyu30[address] [place], [place] [address]Dr. Bhavani Barragan INR GUIDELINES SEE BELOW Normal [facility] Comment on above: Result Comment: WALKER RED INR: 2.0 - 3.0 CONDITIONS NOT LISTED BELOW 2.5 - 3.5 FOR PROSTHETIC HEART VALVE REPLACEMENT 2.5 - 3.5 RECURRENT THROMBOSIS Performed By: #### P T, PTT ####[facility] Pyytoslzkm85[address] [place], [place] [address]Dr. Bhavani Barragan PT Coag (PPP) [Time] 14.5 s Critically high 9.0-11.6 [facility] Comment on above: Performed By: #### P T, PTT ####[facility] Syenbtrkyu[address] [place], [place] [address]Dr. Bhavani Barragan PTTon 03-27-2022 aPTT Coag (Bld) [Time] 34.2 s Normal 22.3-36.2 [facility] Comment on above: Performed By: #### P T, PTT ####[facility] Ymgvxwlhdg6415[address] [place], [place] [address]Dr. Bhavani Barragan XR ABD FLAT_UPon 03-27-2022 XR ABD FLAT_UP Normal [facility] XR CHEST 1 Von 03-27-2022 XR CHEST 1 V Normal [facility] AMMONIAon 03-26-2022 Ammonia (P) [Moles/Vol] 26 umol/L Normal 11-32 [facility] Comment on above: Performed By: #### A MM ####[facility] Oyvxdrdylu30[address] [place], [place] [address]Dr. Bhavani Barragan CBC AUTO DIFFon 03-26-2022 BASO # 0.2 103/ul Critically high 0.0-0.1 The [facility] Comment on above: Performed By: #### C BC ####[facility] Pfjdcwzhyi8[address] [place], [place] [address]Dr. Jayceeroxi Barragan Basophils/100 WBC (Bld) 0.8 % Normal 0.2-2.0 [facility] Comment on above: Performed By: #### C BC ####[facility] Jrnqflfhlv9[address] [place], [place] [address]Dr. Bhavani Laurel EO # 0.0 103/ul Normal 0.0-0.7 [facility] Comment on above: Performed By: #### C BC ####[facility] Cdedwfworv045[address] [place], [place] [address]Dr. Jayceeroxi Barragan Eosinophils/100 WBC (Bld) 0.1 % Critically low 0.9-7.0 [facility] Comment on above: Performed By: #### C BC ####[facility] Erajazwwpm8889[address] [place], [place] [address]Dr. Bhavani Laurel Erythrocyte distribution width (RBC) [Ratio] 16.0 % Critically high 11.0-15.0 [facility] Comment on above: Performed By: #### C BC ####[facility] Aacrxntolc7750 [place] [address]Dr. Bhavani Barragan Hematocrit (Bld) [Volume fraction] 43.9 % Normal 36.0-48.0 [facility] Comment on above: Performed By: #### C BC ####[facility] Vzlayaozxo4588 [place] [address]Dr. Bhavani Barragan Hemoglobin (Bld) [Mass/Vol] 13.6 g/dL Normal 12.0-16.0 [facility] Comment on above: Performed By: #### C BC ####[facility] Cidueiurdt9447 [place] [address]Dr. Bhavani Barragan IG # 0.78 10e3/ul Critically high 0.00-0.03 [facility] Comment on above: Performed By: #### C BC ####[facility] Pzesmcubro3247 [place] [address]Dr. Bhavani Barragan IG % 3.5 % Critically high 0.0-0.5 [facility] Comment on above: Performed By: #### C BC ####[facility] Cvqrdapbkj2428 [place] [address]Dr. Bhavani Barragan LYMPH # 0.9 103/ul Critically low 1.2-3.8 [facility] Comment on above: Performed By: #### C BC ####[facility] Kzoolojlbw3700 [place] [address]Dr. Bhavani Barragan Lymphocytes/100 WBC (Bld) 3.9 % Critically low 20.5-60.0 [facility] Comment on above: Performed By: #### C BC ####[facility] Jhbxbbtrzj9561 [place] [address]Dr. Bhavani Barragan MANUAL DIFF REQ NO Normal [facility] Comment on above: Performed By: #### C BC ####[facility] Otcmltthxs8[address] [place], [place] [address]Dr. Jayceeroxi Barragan MCH (RBC) [Entitic mass] 30.0 pg Normal 26.7-34.0 [facility] Comment on above: Performed By: #### C BC ####[facility] Xbxfuxozgq7960 [place] [phone]. Bhavani Barragan MCHC (RBC) [Mass/Vol] 31.0 g/dL Normal 29.9-35.2 [facility] Comment on above: Performed By: #### C BC ####[facility] Scivdlimgl3576 [place] [phone]. Bhavani Barragan MCV (RBC) [Entitic vol] 96.9 fL Normal 81.0-99.0 [facility] Comment on above: Performed By: #### C BC ####[facility] Yuguemizqg9995 [place] [phone]. Bhavani Barragan MONO # 0.6 103/ul Normal 0.3-0.8 [facility] Comment on above: Performed By: #### C BC ####[facility] Hlgcqfprde1740 [place] [phone]. Jayceeroxi Barragan Monocytes/100 WBC (Bld) 2.7 % Normal 1.7-12.0 [facility] Comment on above: Performed By: #### C BC ####[facility] Zprzhqgkpx6904 [place] [phone]. Bhavani Barragan NEUT # 20.1 103/ul Critically high 1.4-6.5 The [facility] Comment on above: Performed By: #### C BC ####[facility] Mpphjdxerj0662 [place] [phone]. Bhavani Laurel Neutrophils/100 WBC (Bld) 89.0 % Critically high 43.0-75.0 [facility] Comment on above: Performed By: #### C BC ####[facility] Iivibkzrlm0381 [place] [phone]. Bhavani Laurel Platelet mean volume (Bld) [Entitic vol] 9.7 fL Normal 9.5-13.5 [facility] Comment on above: Performed By: #### C BC ####[facility] Ylcetiwvfp8618 [place] [phone]. Jayceeroxi Barragan PLT 434 103/ul Normal 150-450 [facility] Comment on above: Performed By: #### C BC ####[facility] Sqcqjuzgjc1750 [place] [phone]. Bhavani Barragan RBC 4.53 106/ul Normal 4.20-5.40 [facility] Comment on above: Performed By: #### C BC ####[facility] Pnqrdquszv6829 [place] [address]Dr. Bhavani Barragan WBC 22.6 103/ul Critically high 4.0-11.0 [facility] Comment on above: Performed By: #### C BC ####[facility] Mrsdzsvman4260 [place] [address]Dr. Bhavani Barragan ECHOCARDIO M/2D COMPLETEon 0 03-26-2022 ECHOCARDIO M/2D COMPLETE Normal [facility] POINT OF CARE GLUCOSEon Glucose [Mass/Vol] 166 mg/dL Critically high 74-106 [facility] Comment on above: Performed By: #### P OCGLUC ####[facility] Wpvoiwxzpf6489 [place] [address]Dr. Bhavani Barragan Glucose [Mass/Vol] 148 mg/dL Critically high 74-106 [facility] Comment on above: Performed By: #### P OCGLUC ####[facility] Pjtmkipaic117[address] [place], [place] [address]Dr. Bhavani Barragan PROF 14(COMP METB)on 022 Albumin [Mass/Vol] 2.4 g/dL Critically low 3.4-5.0 [facility] Comment on above: Performed By: #### C MP ####[facility] Ovtiyvflsb7526 [place] [address]Dr. Bhavani Barragan Albumin/Globulin [Mass ratio] 0.6 {ratio} Normal [facility] Comment on above: Performed By: #### C MP ####[facility] Uzfskwgptd0828 [place] [address]Dr. Bhavani Barragan ALP [Catalytic activity/Vol] 310 U/L Critically high 46-116 [facility] Comment on above: Performed By: #### C MP ####[facility] Tspsoqtxes2438 [place] [address]Dr. Bhavani Barragan ALT [Catalytic activity/Vol] 194 U/L Critically high 14-59 [facility] Comment on above: Performed By: #### C MP ####[facility] Rentjwoonw6632 [place] [address]Dr. Jayceeroxi Laurel Anion gap [Moles/Vol] 8.2 mmol/L Normal [facility] Comment on above: Performed By: #### C MP ####[facility] Ptwtbtaxeg98[address] [place], [place] [address]Dr. Bhavani Laurel AST [Catalytic activity/Vol] 133 U/L Critically high 15-37 [facility] Comment on above: Performed By: #### C MP ####[facility] Umgmoqshda877[address] [place], [place] [address]Dr. Bhavani Barragan Bilirubin [Mass/Vol] 2.8 mg/dL Critically high 0.2-1.0 [facility] Comment on above: Performed By: #### C MP ####[facility] Qnmokvaswy427[address] [place], [place] [address]Dr. Bhavani Barragan Calcium [Mass/Vol] 7.7 mg/dL Critically low 8.5-10.1 [facility] Comment on above: Performed By: #### C MP ####[facility] Xkoifvsvxl3355[address] [place], [place] [address]Dr. Bhavani Barragan Chloride [Moles/Vol] 105 mmol/L Normal 98-107 [facility] Comment on above: Performed By: #### C MP ####[facility] Ejfeijjqtb3813[address] [place], [place] [address]Dr. Bhavani Barragan CO2 [Moles/Vol] 25.8 mmol/L Normal 21.0-32.0 [facility] Comment on above: Performed By: #### C MP ####[facility] Taxerpjcum75[address] [place], [place] [address]Dr. Bhavani Barragan Creatinine [Mass/Vol] 1.07 mg/dL Critically high 0.55-1.02 [facility] Comment on above: Performed By: #### C MP ####[facility] Hrrlmhbsfg064[address] [place], [place] [address]Dr. Bhavani Barragan EGFR-AF ICELANDIC 60 mL/min/1.73m2 Normal >=60 [facility] Comment on above: Performed By: #### C MP ####[facility] Zbndpencvh7743 [place] [address]Dr. Bhavani Laurel EGFR-NON AF ICELANDIC 49 mL/min/1.73m2 Critically low >=60 [facility] Comment on above: Performed By: #### C MP ####[facility] Oqfhxjfege3904 [place] [address]Dr. Bhavani Laurel Globulin (S) [Mass/Vol] 3.8 g/dL Normal [facility] Comment on above: Performed By: #### C MP ####[facility] Loqffwvulp437[address] [place], [place] [address]Dr. Bhavani Barragan Glucose [Mass/Vol] 90 mg/dL Normal 74-106 [facility] Comment on above: Performed By: #### C MP ####[facility] Unklmrvqni125[address] [place], [place] [address]Dr. Bhavani Barragan Potassium [Moles/Vol] 4.0 mmol/L Normal 3.5-5.1 [facility] Comment on above: Performed By: #### C MP ####[facility] Dzspqcygbh0035[address] [place], [place] [address]Dr. Jayceeroxi Laurel Protein [Mass/Vol] 6.2 g/dL Critically low 6.4-8.2 [facility] Comment on above: Performed By: #### C MP ####[facility] Kzlcjisxgt613[address] [place], [place] [address]Dr. Bhavani Barragan Sodium [Moles/Vol] 135 mmol/L Critically low 136-145 [facility] Comment on above: Performed By: #### C MP ####[facility] Pbhytbqgcz9[address] [place], [place] [address]Dr. Bhavani Barragan Urea nitrogen [Mass/Vol] 14.0 mg/dL Normal 7.0-18.0 [facility] Comment on above: Performed By: #### C MP ####[facility] Abnlwxntkv[address] [place], [place] [address]Dr. Bhavani Barragan Urea nitrogen/Creatinine [Mass ratio] 13.1 mg/mg Normal [facility] Comment on above: Performed By: #### C MP ####[facility] Navozvykag[address] [place], [place] [address]DrLydia Barragan PROTIMEon 03-26-2022 INR Coag (PPP) [Relative time] 1.31 {INR} Normal [facility] Comment on above: Performed By: #### P T, PTT ####[facility] Ebuhbsxmhu84[address] [place], [place] [address]DrLydia Barragan INR GUIDELINES SEE BELOW Normal [facility] Comment on above: Result Comment: WALKER RED INR: 2.0 - 3.0 CONDITIONS NOT LISTED BELOW 2.5 - 3.5 FOR PROSTHETIC HEART VALVE REPLACEMENT 2.5 - 3.5 RECURRENT THROMBOSIS Performed By: #### P T, PTT ####[facility] Waeewkjodr[address] [place], [place] [address]Dr. Bhavani Barragan PT Coag (PPP) [Time] 13.9 s Critically high 9.0-11.6 [facility] Comment on above: Performed By: #### P T, PTT ####[facility] Nblyvbvjtj117[address] [place], [place] [address]DrLydia Barragan PTTon 03-26-2022 aPTT Coag (Bld) [Time] 32.8 s Normal 22.3-36.2 [facility] Comment on above: Performed By: #### P T, PTT ####[facility] Eupzdkvfgt25[address] [place], [place] [address]Dr. Bhavani Barragan AMMONIAon 03-25-2022 Ammonia (P) [Moles/Vol] 17 umol/L Normal 11-32 [facility] Comment on above: Performed By: #### A MM ####[facility] Jokkgivrct[address] [place], [place] [address]DrLydia Barragan CBC W MANUAL DIFFon 03-25-20 22 ATYPICAL LYMPH # Normal [facility] Comment on above: Performed By: #### C BCMAN ####[facility] Qzypgsmgqg[address] [place], [place] [address]Dr. Yilan Barragan ATYPICAL LYMPH % Normal [facility] Comment on above: Performed By: #### C BCMAN ####[facility] Mmvdsbgkzf3765 [place] [id number]. Bhavani Barragan BAND # 0.3 103/ul Normal 0.0-0.3 [facility] Comment on above: Performed By: #### C BCMAN ####[facility] Ixpeldpnwq1906 [place] [address]Dr. Jayceelan Barragan BAND % 1 % Normal 0-5 [facility] Comment on above: Performed By: #### C BCJERSON ####[facility] Vsrlbkcwig28[address] [place] [address]Dr. Bhavani Barragan BASOM # 0.27 103/ul Critically high 0.00-0.10 The [facility] Comment on above: Performed By: #### C BCJERSON ####[facility] Trtkmmjsnj2514 [place] [address]Dr. Bhavani Barragan BASOM % 1.0 % Normal 0.2-2.0 [facility] Comment on above: Performed By: #### C BCJERSON ####[facility] Bwevadnjgr7136 [place] [address]Dr. Bhavani Barragan BLAST # Normal [facility] Comment on above: Performed By: #### C BCJERSON ####[facility] Xudvvpaceh1894 [place] [id number]. Bhavani Barragan BLAST % Normal [facility] Comment on above: Performed By: #### C BCJERSON ####[facility] Dpgipqfuyv8128 [place] [address]Dr. Bhavani Barragan CORRECTED WBC Normal 4.0-11.0 The [facility] Comment on above: Performed By: #### C OMID ####[facility] Ueruregmto6046 [place] [address]Dr. Bhavani Barragan EOS # 0.00 103/ul Normal 0.00-0.70 [facility] Comment on above: Performed By: #### C BCJERSON ####[facility] Mdlwpogehn[address] [place], [place] [address]Dr. Bhavani Barragan EOS% 0.0 % Critically low 0.9-7.0 [facility] Comment on above: Performed By: #### C OMID ####[facility] Fanddoasdz5399 [place] [address]Dr. Bhavani Barragan HCT 41.6 % Normal 36.0-48.0 [facility] Comment on above: Performed By: #### C OMID ####[facility] Wqzwdnjlts3928 [place] [id number]. Bhavani Barragan HGB 12.8 g/dl Normal 12.0-16.0 [facility] Comment on above: Performed By: #### C OMID ####[facility] Mducogethy4093 [place] [address]Dr. Bhavani Barragan LYMPHM # 0.80 103/ul Critically low 1.20-3.80 [facility] Comment on above: Performed By: #### Jany ANNE ####[facility] Wowssrgfvq7025 [place] [address]Dr. Bhavani Barragan LYMPHM% 3.0 % Critically low 20.5-60.0 [facility] Comment on above: Performed By: #### Jany ANNE ####[facility] Ylonjplfqg[address] [place], [place] [address]Dr. Bhavani Barragan MCH 29.4 pg Normal 26.7-34.0 [facility] Comment on above: Performed By: #### Jany ANNE ####[facility] Bwrexcfryd7337 [place] [address]Dr. Bhavani Barragan MCHC 30.8 g/dl Normal 29.9-35.2 [facility] Comment on above: Performed By: #### Jany ANNE ####[facility] Ttebdfwmef4317 [place] [phone]. Bhavani Barragan MCV 95.6 fL Normal 81.0-99.0 The [facility] Comment on above: Performed By: #### Jany ANNE ####[facility] Gnhisjbtei3972 [place] [address]Dr. Bhavani Barragan METAMYELOCYTE # Normal The [facility] Comment on above: Performed By: #### C OMID ####[facility] Wfpgwivyhu3230 [place], [place] [address]Ff. Bhavani Barragan METAMYELOCYTE % Normal The [facility] Comment on above: Performed By: #### C OMID ####[facility] Xnpzzpopbl0599 [place], [place] [address]Yq. Bhavani Barragan MONOM# 0.80 103/ul Normal 0.30-0.80 [facility] Comment on above: Performed By: #### Jany ANNE ####[facility] Qhucnsojyw1361 [place], [place] [address]Ok. Bhavani Barragan MONOM% 3.0 % Normal 1.7-12.0 [facility] Comment on above: Performed By: #### Jany ANNE ####[facility] Daxnyhhogq5552 [place] [phone]. Bhavani Barragan MPV 9.9 fL Normal 9.5-13.5 [facility] Comment on above: Performed By: #### Jany ANNE ####[facility] Uydxocoiri8557 [place] [phone]. Bhavani Barragan MYELOCYTE # Normal [facility] Comment on above: Performed By: #### Jany ANNE ####[facility] Yoxytensks8104 [place] [phone]. Bhavani Barragan MYELOCYTE % Normal [facility] Comment on above: Performed By: #### Jany ANNE ####[facility] Hqamyjoxft8015 [place] [phone]. Bhavani Barragan NRBC Normal [facility] Comment on above: Performed By: #### Jany ANNE ####[facility] Ccrlwxdydn9065 [place], [place] [address]Ao. Bhavani Barragan PLT 448 103/ul Normal 150-450 [facility] Comment on above: Performed By: #### Jany ANNE ####[facility] Niwjlzytrp2739 [place], [place] [address]Mw. Bhavani Barragan RBC 4.35 106/ul Normal 4.20-5.40 [facility] Comment on above: Performed By: #### Jany ANNE ####[facility] Xleexsodtc5115 [place], [place] [address]Dh. Bhavani Barragan RDW 16.0 % Critically high 11.0-15.0 The [facility] Comment on above: Performed By: #### C BCMAN ####[facility] Aykeguiwhk0844 [place], [place] [address]Rs. Bhavani Barragan SEG # 24.38 103/ul Critically high 1.40-6.50 The [facility] Comment on above: Performed By: #### C BCMAN ####[facility] Aywjklehff2609 [place] [phone]. Bhavani Barragan SEG % 92.0 % Critically high 43.0-75.0 The [facility] Comment on above: Performed By: #### C OMID ####[facility] Fxskhnievf7026 [place] [phone]. Bhavani Barragan WBC 26.5 103/ul Critically high 4.0-11.0 The [facility] Comment on above: Performed By: #### C BCJERSON ####[facility] Bxaqtqqidy0936 [place] [phone]. Bhavani Barragan DIFFERENTIAL MANUALon 2021 ATYPICAL LYMPH # Normal The [facility] Comment on above: Performed By: #### D IFF ####[facility] Reenwdzvpp9799 [place] [phone]. Bhavani Barragan ATYPICAL LYMPH % Normal The [facility] Comment on above: Performed By: #### D IFF ####[facility] Xwdcjzmzbo1215 [place] [phone]. Bhavani Barragan BAND # 0.3 103/ul Normal 0.0-0.3 [facility] Comment on above: Performed By: #### D IFF ####[facility] Ajuimmlbdd8649 [place] [address]Dr. Bhavani Barragan BAND % 1 % Normal 0-5 [facility] Comment on above: Performed By: #### D IFF ####[facility] Hpotyddvfl9343 [place] [phone]. Bhavani Barragan BASOM # 0.27 103/ul Critically high 0.00-0.10 The [facility] Comment on above: Performed By: #### D IFF ####[facility] Rubtiaajuk3335 [place] [address]Dr. Bhavani Barragan BASOM % 1.0 % Normal 0.2-2.0 [facility] Comment on above: Performed By: #### D IFF ####[facility] Iabvysfgjj8073 [place] [address]Dr. Bhavani Barragan BLAST # Normal [facility] Comment on above: Performed By: #### D IFF ####[facility] Wbememuxvs0643 [place] [address]Dr. Bhavani Barragan BLAST % Normal [facility] Comment on above: Performed By: #### D IFF ####[facility] Weewifamkh[address] [place], [place] [address]Dr. Bhavani Barragan CORRECTED WBC Normal 4.0-11.0 The [facility] Comment on above: Performed By: #### D IFF ####[facility] Slouddhvtz205[address] [place], [place] [address]Dr. Bhavani Barragan EOS # 0.00 103/ul Normal 0.00-0.70 [facility] Comment on above: Performed By: #### D IFF ####[facility] Ylvlrehkae72[address] [place], [place] [address]Dr. Bhavani Barragan EOS% 0.0 % Critically low 0.9-7.0 The [facility] Comment on above: Performed By: #### D IFF ####[facility] Alkelbyrgy28[address] [place], [place] [address]Dr. Bhavani Barragan LYMPHM # 0.80 103/ul Critically low 1.20-3.80 The [facility] Comment on above: Performed By: #### D IFF ####[facility] Cifbzplygq054[address] [place], [place] [address]Dr. Bhavani Barragan LYMPHM% 3.0 % Critically low 20.5-60.0 The [facility] Comment on above: Performed By: #### D IFF ####[facility] Mchlovxpjp[address] [place], [place] [address]Dr. Bhavani Barragan METAMYELOCYTE # Normal [facility] Comment on above: Performed By: #### D IFF ####[facility] Tomsmajwdt5582 [place] [phone]. Bhavani Barragan METAMYELOCYTE % Normal The [facility] Comment on above: Performed By: #### D IFF ####[facility] Fqduqkgcni5999 [place] [phone]. Bhavani Barragan MONOM# 0.80 103/ul Normal 0.30-0.80 [facility] Comment on above: Performed By: #### D IFF ####[facility] Yamcnmvvgp8465 [place] [address]Dr. Bhavani Barragan MONOM% 3.0 % Normal 1.7-12.0 [facility] Comment on above: Performed By: #### D IFF ####[facility] Xswxsvufoy[address] [place], [place] [address]Dr. Bhavani Barragan MYELOCYTE # Normal [facility] Comment on above: Performed By: #### D IFF ####[facility] Lweumtnrfz[address] [place], [place] [address]Dr. Bhavani Barragan MYELOCYTE % Normal [facility] Comment on above: Performed By: #### D IFF ####[facility] Iufxfalakq2645 [place] [address]Dr. Bhavani Barragan NRBC Normal [facility] Comment on above: Performed By: #### D IFF ####[facility] Rksrmtayil2693 [place] [address]Dr. Bhavani Barragan SEG # 24.38 103/ul Critically high 1.40-6.50 [facility] Comment on above: Performed By: #### D IFF ####[facility] Jichvcaecd36[address] [place], [place] [address]Dr. Bhavani Barragan SEG % 92.0 % Critically high 43.0-75.0 [facility] Comment on above: Performed By: #### D IFF ####[facility] Waclklqhcl[address] [place], [place] [address]Dr. Bhavani Barragan WBC 26.5 103/ul Critically high 4.0-11.0 [facility] Comment on above: Performed By: #### D IFF ####[facility] Ygxzfmoyji0291 [place] [address]Dr. Bhavani Barragan POINT OF CARE GLUCOSEon 05- Glucose [Mass/Vol] 120 mg/dL Critically high 74-106 [facility] Comment on above: Performed By: #### P OCGLUC ####[facility] Fsvivggsir4901 [place] [address]Dr. Bhavani Barragan Glucose [Mass/Vol] 98 mg/dL Normal 74-106 [facility] Comment on above: Performed By: #### P OCGLUC ####[facility] Vycffxfmto3958 [place] [address]Dr. Bhavani Barragan PROF 14(COMP METB)on 022 Albumin [Mass/Vol] 2.3 g/dL Critically low 3.4-5.0 [facility] Comment on above: Performed By: #### C MP ####[facility] Zyliphmmpk4624 [place] [address]Dr. Bhavani Barragan Albumin/Globulin [Mass ratio] 0.6 {ratio} Normal [facility] Comment on above: Performed By: #### C MP ####[facility] Jdrbnhbpky4745 [place] [address]Dr. Bhavani Barragan ALP [Catalytic activity/Vol] 309 U/L Critically high 46-116 [facility] Comment on above: Performed By: #### C MP ####[facility] Pnqosowuwr5566 [place] [address]Dr. Bhavani Barragan ALT [Catalytic activity/Vol] 163 U/L Critically high 14-59 [facility] Comment on above: Performed By: #### C MP ####[facility] Txcrjhhddi5694 [place] [address]Dr. Bhavani Barragan Anion gap [Moles/Vol] 12.2 mmol/L Normal [facility] Comment on above: Performed By: #### C MP ####[facility] Pmfiowoaur1326 [place] [phone]. Bhavani Barragan AST [Catalytic activity/Vol] 103 U/L Critically high 15-37 [facility] Comment on above: Performed By: #### C MP ####[facility] Nldifwanpc8540 [place] [phone]. Bhavani Barragan Bilirubin [Mass/Vol] 1.5 mg/dL Critically high 0.2-1.0 [facility] Comment on above: Performed By: #### C MP ####[facility] Itkzgoskzk8525 [place] [address]Dr. Bhavani Barragan Calcium [Mass/Vol] 7.3 mg/dL Critically low 8.5-10.1 [facility] Comment on above: Performed By: #### C MP ####[facility] Wawccxrykr[address] [place], [place] [address]Dr. Bhavani Barragan Chloride [Moles/Vol] 107 mmol/L Normal 98-107 [facility] Comment on above: Performed By: #### C MP ####[facility] Yasyecfckz7[address] [place], [place] [address]Dr. Bhavani Barragan CO2 [Moles/Vol] 21.9 mmol/L Normal 21.0-32.0 The [facility] Comment on above: Performed By: #### C MP ####[facility] Pxhnshpehp[address] [place], [place] [address]Dr. Bhavani Barragan Creatinine [Mass/Vol] 1.22 mg/dL Critically high 0.55-1.02 [facility] Comment on above: Performed By: #### C MP ####[facility] Nqajxspkrp4180 [place] [phone]. Bhavani Barragan EGFR-AF ICELANDIC 51 mL/min/1.73m2 Critically low >=60 [facility] Comment on above: Performed By: #### C MP ####[facility] Zefhfayxct2911 [place] [phone]. Bhavani Barragan EGFR-NON AF ICELANDIC 42 mL/min/1.73m2 Critically low >=60 [facility] Comment on above: Performed By: #### C MP ####[facility] Deayujihhf0870 [place] [phone]. Bhavani Barragan Globulin (S) [Mass/Vol] 3.7 g/dL Normal [facility] Comment on above: Performed By: #### C MP ####[facility] Lxvzsvebnp2989 [place] [address]Dr. Bhavani Barragan Glucose [Mass/Vol] 165 mg/dL Critically high 74-106 [facility] [place] Comment on above: Performed By: #### C MP ####[facility] Nokyxhjkkb4382 [place] [address]Dr. Bhavani Barragan Potassium [Moles/Vol] 4.1 mmol/L Normal 3.5-5.1 [facility] Comment on above: Performed By: #### C MP ####[facility] Vqndpbbkod02[address] [place], [place] [address]Dr. Bhavani Barragan Protein [Mass/Vol] 6.0 g/dL Critically low 6.4-8.2 Th [facility] Comment on above: Performed By: #### C MP ####[facility] Ggbyaskdqu4[address] [place], [place] [address]Dr. Bhavani Barragan Sodium [Moles/Vol] 137 mmol/L Normal 136-145 [facility] Comment on above: Performed By: #### C MP ####[facility] Sbkuwcyclx49[address] [place], [place] [address]Dr. Bhavani Barragan Urea nitrogen [Mass/Vol] 18.0 mg/dL Normal 7.0-18.0 [facility] Comment on above: Performed By: #### C MP ####[facility] Ixewiypaup48[address] [place], [place] [address]Dr. Bhavani Barragan Urea nitrogen/Creatinine [Mass ratio] 14.8 mg/mg Normal [facility] Comment on above: Performed By: #### C MP ####[facility] Hyudbfekmk199[address] [place], [place] [address]Dr. Bhavani Barragan PROTIMEon 03-25-2022 INR Coag (PPP) [Relative time] 1.18 {INR} Normal [facility] Comment on above: Performed By: #### P TT, PT ####[facility] Whtpmaawyp2799 [place] [address]Dr. Bhavani Barragan INR GUIDELINES SEE BELOW Normal The [facility] Comment on above: Result Comment: WALKER RED INR: 2.0 - 3.0 CONDITIONS NOT LISTED BELOW 2.5 - 3.5 FOR PROSTHETIC HEART VALVE REPLACEMENT 2.5 - 3.5 RECURRENT THROMBOSIS Performed By: #### P TT, PT ####[facility] Zcshuvsypj[address] [place], [place] [address]Dr. Bhavani Barragan PT Coag (PPP) [Time] 12.6 s Critically high 9.0-11.6 [facility] Comment on above: Performed By: #### P TT, PT ####[facility] Ehpslxlwye01[address] [place], [place] [address]Dr. Bhavani Barragan PTTon 03-25-2022 aPTT Coag (Bld) [Time] 30.6 s Normal 22.3-36.2 [facility] Comment on above: Performed By: #### P TT, PT ####[facility] Wpazgmzaqw[address] [place], [place] [address]Dr. Bhavani Barragan AMMONIAon 03-24-2022 Ammonia (P) [Moles/Vol] 38 umol/L Critically high 11-32 [facility] Comment on above: Performed By: #### A MM ####[facility] Jycdzappav[address] [place], [place] [address]Dr. Bhavani Barragan BNPon 03-24-2022 Natriuretic peptide B (Bld) [Mass/Vol] 2420.0 pg/mL Critically high <=1,800.0 [facility] Comment on above: Result Comment: repe ated Performed By: #### B ASSOCIATE ACCOUNT EXECUTIVE, CMP ####[facility] Lfvlzrmlvr[address] [place], [place] [address]Dr. Bhavani Barragan CARDIAC ANDREA 3-6on 2 CK [Catalytic activity/Vol] 20 U/L Critically low 26-192 [facility] Comment on above: Performed By: #### C MREP ####[facility] Nuvkfdoetv6[address] [place], [place] [address]Dr. Bhavani Barragan CK.MB [Mass/Vol] ng/mL Normal <=3.60 The [facility] Comment on above: Performed By: #### C MREP ####[facility] Kovhusubpj7520 [place] [address]Dr. Bhavani Barragan HSTROP 42.4 pg/mL Normal 4.0-51.3 [facility] Comment on above: Result Comment: CUT- OFF POINTS HAVE BEEN ESTABLISHED BASED ON THE FOURTH UNIVERSAL DEFINITIONS OF MYOCARDIALINFARCTION. THE UPPER REFERENCE LIMIT (URL) OF TROPONIN, DEFINED THE 99TH PERCENTILE OFcTnI DISTRIBUTION IN A REFERENCE POPULATION, HAS BEEN CONFIRMED THE DECISION THRESHOLDFOR [place] DIAGNOSIS. Performed By: #### C MREP ####[facility] Wepinevgir9714 [place] [address]Dr. Bhavani Barragan CK [Catalytic activity/Vol] 17 U/L Critically low 26-192 [facility] Comment on above: Performed By: #### C MREP ####[facility] Psmohnkegb[address] [place], [place] [address]Dr. Jayceeroxi Barragan CK.MB [Mass/Vol] 0.51 ng/mL Normal <=3.60 The [facility] Comment on above: Performed By: #### C MREP ####[facility] Beutxezcns[address] [place], [place] [address]Dr. Bhavani Laurel HSTROP 45.4 pg/mL Normal 4.0-51.3 [facility] Comment on above: Result Comment: CUT- OFF POINTS HAVE BEEN ESTABLISHED BASED ON THE FOURTH UNIVERSAL DEFINITIONS OF MYOCARDIALINFARCTION. THE UPPER REFERENCE LIMIT (URL) OF TROPONIN, DEFINED THE 99TH PERCENTILE OFcTnI DISTRIBUTION IN A REFERENCE POPULATION, HAS BEEN CONFIRMED THE DECISION THRESHOLDFOR VT DIAGNOSIS. Performed By: #### C MREP ####[facility] Gmcpegtxyw2321 [place] [address]Dr. Bhavani Barragan CBC W MANUAL DIFFon 03-24-20 22 ANISOCYTOSIS 1+ Normal [facility] Comment on above: Performed By: #### C BCMAN ####[facility] Bmapzlgrip5670 [place] [address]Dr. Bhavani Barragan ATYPICAL LYMPH # Normal [facility] Comment on above: Performed By: #### C OMID ####[facility] Tjlxfperuk4519 [place] [phone]. Bhavani Barragan ATYPICAL LYMPH % Normal [facility] Comment on above: Performed By: #### C OMID ####[facility] Fianzmldtr8911 [place], [place] [address]Rw. Yilan Barragan BAND # 0.8 103/ul Critically high 0.0-0.3 The [facility] Comment on above: Performed By: #### C OMID ####[facility] Czmzykrvfx1715 [place] [address]Dr. Yilan Barragan BAND % 3 % Normal 0-5 [facility] Comment on above: Performed By: #### C OMID ####[facility] Bennhvknmq3317 [place] [address]Dr. Bhavani Barragan BASOM # 0.00 103/ul Normal 0.00-0.10 [facility] Comment on above: Performed By: #### C OMID ####[facility] Uphcnbcqwy1254 [place] [address]Dr. Bhavani Barragan BASOM % 0.0 % Critically low 0.2-2.0 [facility] Comment on above: Performed By: #### C OMID ####[facility] Stqwdrwsbf3770 [place] [address]Dr. Yiroxi Barragan BLAST # Normal [facility] Comment on above: Performed By: #### C OMID ####[facility] Nbmhnljptu3902 [place] [address]Dr. Yilan Barragan BLAST % Normal [facility] Comment on above: Performed By: #### C OMID ####[facility] Iwerrezfsp0472 [place] [address]Dr. Bhavani Barragan CORRECTED WBC Normal 4.0-11.0 The [facility] Comment on above: Performed By: #### C OMID ####[facility] Szcgkubuii6721 [place] [address]Dr. Jayceelan Barragan EOS # 0.00 103/ul Normal 0.00-0.70 [facility] Comment on above: Performed By: #### Jany ANNE ####[facility] Ooafckizfw6157 [place], [place] [address]Ub. Bhavani Barragan EOS% 0.0 % Critically low 0.9-7.0 [facility] Comment on above: Performed By: #### Jany ANNE ####[facility] Udkxvtelqt4224 [place], [place] [address]Xw. Bhavani Barragan HCT 44.0 % Normal 36.0-48.0 [facility] Comment on above: Performed By: #### C OMID ####[facility] Jachcwsjfs6459 [place], [place] [address]Un. Bhavani Barragan HGB 13.3 g/dl Normal 12.0-16.0 [facility] Comment on above: Performed By: #### Jany ANNE ####[facility] Cujaddzuyy2453 [place] [address]Dr. Bhavani Barragan LYMPHM # 1.08 103/ul Critically low 1.20-3.80 The [facility] Comment on above: Performed By: #### Jany ANNE ####[facility] Lzbmreovev4944 [place], [place] [address]Cu. Bhavani Barragan LYMPHM% 4.0 % Critically low 20.5-60.0 [facility] Comment on above: Performed By: #### Jany ANNE ####[facility] Fggmmqybky3783 [place], [place] [address]Is. Bhavani Barragan MCH 29.6 pg Normal 26.7-34.0 [facility] Comment on above: Performed By: #### Jany ANNE ####[facility] Czuzztsbeq1841 [place], [place] [address]Yc. Bhavani Barragan MCHC 30.2 g/dl Normal 29.9-35.2 [facility] Comment on above: Performed By: #### Jany ANNE ####[facility] Ydfbmqdeuv9262 [place], [place] [address]Gl. Bhavani Barragan MCV 97.8 fL Normal 81.0-99.0 [facility] Comment on above: Performed By: #### Jany ANNE ####[facility] Nqjdgfrqrx1725 [place] [phone]. Bhavani Barragan METAMYELOCYTE # Normal The [facility] Comment on above: Performed By: #### C OMID ####[facility] Wyvboeevzb3285 [place] [phone]. Bhavani Barragan METAMYELOCYTE % Normal The [facility] Comment on above: Performed By: #### C OMID ####[facility] Fadqerterx3827 [place] [address]Dr. Bhavani Barragan MONOM# 0.54 103/ul Normal 0.30-0.80 [facility] Comment on above: Performed By: #### C OMID ####[facility] Aghupgbzto1051 [place] [address]Dr. Bhavani Barragan MONOM% 2.0 % Normal 1.7-12.0 [facility] Comment on above: Performed By: #### C OMID ####[facility] Wenw[address]jb[address] [place], [place] [address]Dr. Bhavani Barragan MPV 10.3 fL Normal 9.5-13.5 [facility] Comment on above: Performed By: #### C OMID ####[facility] Hxidwbdbns[address] [place], [place] [address]Dr. Bhavani Barragan MYELOCYTE # Normal [facility] Comment on above: Performed By: #### C OMID ####[facility] Xwyoumziba6755 [place] [phone]. Bhavani Barragan MYELOCYTE % Normal [facility] Comment on above: Performed By: #### C OMID ####[facility] Gsdatqauzq5274 [place] [address]Dr. Bhavani Barragan NRBC Normal [facility] Comment on above: Performed By: #### C OMID ####[facility] Dcznrnbgfw9380 [place] [address]Dr. Bhavani Barragan PLT 424 103/ul Normal 150-450 [facility] Comment on above: Performed By: #### C OMID ####[facility] Ctzgrnoile2533 [place] [address]Dr. Bhavani Barragan RBC 4.50 106/ul Normal 4.20-5.40 [facility] Comment on above: Performed By: #### C OMID ####[facility] Isetgunbgl7668 [place] [address]Dr. Bhavani Barragan RDW 15.9 % Critically high 11.0-15.0 [facility] Comment on above: Performed By: #### C OMID ####[facility] Zofbnyyuds0425 [place] [phone]. Bhavani Barragan SEG # 24.48 103/ul Critically high 1.40-6.50 [facility] Comment on above: Performed By: #### C OMID ####[facility] [address]ju[address] [place] [id number]. Bhavani Barragan SEG % 91.0 % Critically high 43.0-75.0 [facility] Comment on above: Performed By: #### C OMID ####[facility] Javiotswpe4665 [place] [id number]. Bhavani Barragan WBC 26.9 103/ul Critically high 4.0-11.0 [facility] Comment on above: Performed By: #### C OMID ####[facility] Puqjdifwti[address] [place] [id number]. Bhavani Barragan CULTURE URINEon 03-24-2022 CULTURE URINE Normal [facility] Comment on above: Performed By: #### U RCX ####[facility] Qzvzfzixxx7523 [place] [id number]. Bhavani Barragan POINT OF CARE GLUCOSEon 05- Glucose [Mass/Vol] 113 mg/dL Critically high 74-106 [facility] Comment on above: Performed By: #### P OCGLUC ####[facility] Rlfacgcyfi3469 [place] [id number]. Bhavani Barragan Glucose [Mass/Vol] 103 mg/dL Normal 74-106 [facility] Comment on above: Performed By: #### P OCGLUC ####[facility] Tqncqpwxyo400[address] [place] [id number]. Bhavani Barragan Glucose [Mass/Vol] 134 mg/dL Critically high 74-106 [facility] [place] Comment on above: Performed By: #### P OCGLUC ####[facility] Gxdxxuzygb7[address] [place] [address]Dr. Jayceeroxi Barragan PROF 14(COMP METB)on 022 Albumin [Mass/Vol] 2.3 g/dL Critically low 3.4-5.0 [facility] Comment on above: Performed By: #### B ASSOCIATE ACCOUNT EXECUTIVE, CMP ####[facility] Opeymzpisb[address] [place], [place] [address]Dr. Bhavani Barragan Albumin/Globulin [Mass ratio] 0.6 {ratio} Normal [facility] Comment on above: Performed By: #### B ASSOCIATE ACCOUNT EXECUTIVE, CMP ####[facility] Skvkoxsxiu84[address] [place], [place] [address]Dr. Bhavani Barragan ALP [Catalytic activity/Vol] 239 U/L Critically high 46-116 [facility] Comment on above: Performed By: #### B ASSOCIATE ACCOUNT EXECUTIVE, CMP ####[facility] Qrhrtwrkyb[address] [place], [place] [address]Dr. Bhavani Barragan ALT [Catalytic activity/Vol] 185 U/L Critically high 14-59 [facility] Comment on above: Performed By: #### B ASSOCIATE ACCOUNT EXECUTIVE, CMP ####[facility] Qgroyffptt[address] [place], [place] [address]Dr. Bhavani Barragan Anion gap [Moles/Vol] 13.8 mmol/L Normal [facility] Comment on above: Performed By: #### B ASSOCIATE ACCOUNT EXECUTIVE, CMP ####[facility] Pxzgkowhid[address] [place], [place] [address]Dr. Bhavani Barragan AST [Catalytic activity/Vol] 64 U/L Critically high 15-37 [facility] Comment on above: Performed By: #### B ASSOCIATE ACCOUNT EXECUTIVE, CMP ####[facility] Cydzbqfvvo60[address] [place], [place] [address]Dr. Bhavani Barragan Bilirubin [Mass/Vol] 0.6 mg/dL Normal 0.2-1.0 [facility] Comment on above: Performed By: #### B ASSOCIATE ACCOUNT EXECUTIVE, CMP ####[facility] Lddblaispb9[address] [place], [place] [address]Dr. Bhavani Barragan Calcium [Mass/Vol] 7.3 mg/dL Critically low 8.5-10.1 [facility] Comment on above: Performed By: #### B ASSOCIATE ACCOUNT EXECUTIVE, CMP ####[facility] Vgzdswnafb02[address] [place], [place] [address]Dr. Bhavani Barragan Chloride [Moles/Vol] 105 mmol/L Normal 98-107 [facility] Comment on above: Performed By: #### B ASSOCIATE ACCOUNT EXECUTIVE, CMP ####[facility] Pzlmgfawvm[address] [place], [place] [address]Dr. Bhavani Barragan CO2 [Moles/Vol] 20.9 mmol/L Critically low 21.0-32.0 [facility] Comment on above: Performed By: #### B ASSOCIATE ACCOUNT EXECUTIVE, CMP ####[facility] Qhwkabmxui174[address] [place], [place] [address]Dr. Bhavani Barragan Creatinine [Mass/Vol] 1.24 mg/dL Critically high 0.55-1.02 [facility] Comment on above: Performed By: #### B ASSOCIATE ACCOUNT EXECUTIVE, CMP ####[facility] Olpjvhrywb229[address] [place], [place] [address]Dr. Bhavani Barragan EGFR-AF ICELANDIC 50 mL/min/1.73m2 Critically low >=60 [facility] Comment on above: Performed By: #### B ASSOCIATE ACCOUNT EXECUTIVE, CMP ####[facility] Cbcdfrhmjx340[address] [place], [place] [address]Dr. Bhavani Barragan EGFR-NON AF ICELANDIC 41 mL/min/1.73m2 Critically low >=60 [facility] Comment on above: Performed By: #### B ASSOCIATE ACCOUNT EXECUTIVE, CMP ####[facility] Hcyhueswfe26[address] [place], [place] [address]Dr. Bhavani Barragan Globulin (S) [Mass/Vol] 3.8 g/dL Normal [facility] Comment on above: Performed By: #### B ASSOCIATE ACCOUNT EXECUTIVE, CMP ####[facility] Lqkqgowecm9[address] [place], [place] [address]Dr. Bhavani Barragan Glucose [Mass/Vol] 164 mg/dL Critically high 74-106 T [facility] [place] Comment on above: Performed By: #### B ASSOCIATE ACCOUNT EXECUTIVE, CMP ####[facility] Vmakwwytip[address] [place], [place] [address]Dr. Jayceeroxi Barragan Potassium [Moles/Vol] 3.7 mmol/L Normal 3.5-5.1 [facility] Comment on above: Performed By: #### B ASSOCIATE ACCOUNT EXECUTIVE, CMP ####[facility] Jfimppvepg6636[address] [place], [place] [address]Dr. Jayceeroxi Barragan Protein [Mass/Vol] 6.1 g/dL Critically low 6.4-8.2 [facility] Comment on above: Performed By: #### B ASSOCIATE ACCOUNT EXECUTIVE, CMP ####[facility] Xphqiqcmie456[address] [place], [place] [address]Dr. Bhavani Barragan Sodium [Moles/Vol] 136 mmol/L Normal 136-145 [facility] Comment on above: Performed By: #### B ASSOCIATE ACCOUNT EXECUTIVE, CMP ####[facility] Lgwnwesrjc04[address] [place], [place] [address]Dr. Bhavani Barragan Urea nitrogen [Mass/Vol] 23.0 mg/dL Critically high 7.0-18.0 [facility] Comment on above: Performed By: #### B ASSOCIATE ACCOUNT EXECUTIVE, CMP ####[facility] Houdreqhai04[address] [place], [place] [address]Dr. Bhavani Barragan Urea nitrogen/Creatinine [Mass ratio] 18.5 mg/mg Normal [facility] Comment on above: Performed By: #### B ASSOCIATE ACCOUNT EXECUTIVE, CMP ####[facility] Zczsdzaspv[address] [place], [place] [address]Dr. Bhavani Barragan PROTIMEon 03-24-2022 INR Coag (PPP) [Relative time] 1.19 {INR} Normal [facility] Comment on above: Performed By: #### P TT, PT ####[facility] Mepgvntrlx[address] [place], [place] [address]Dr. Bhavani Barragan INR GUIDELINES SEE BELOW Normal [facility] Comment on above: Result Comment: WALKER RED INR: 2.0 - 3.0 CONDITIONS NOT LISTED BELOW 2.5 - 3.5 FOR PROSTHETIC HEART VALVE REPLACEMENT 2.5 - 3.5 RECURRENT THROMBOSIS Performed By: #### P TT, PT ####[facility] [address]zw[address] [place] [address]Dr. Bhavani Barragan PT Coag (PPP) [Time] 12.7 s Critically high 9.0-11.6 [facility] Comment on above: Performed By: #### P TT, PT ####[facility] Gzgajujjhg[address] [place] [address]Dr. Bhavani Barragan PTTon 03-24-2022 aPTT Coag (Bld) [Time] 29.4 s Normal 22.3-36.2 [facility] Comment on above: Performed By: #### P TT, PT ####[facility] Vkvnkfvbrw[address] [place], [place] [address]Dr. Jayceeroxi Barragan AMMONIAon 03-23-2022 Ammonia (P) [Moles/Vol] 26 umol/L Normal 11-32 [facility] Comment on above: Performed By: #### A MM ####[facility] Aocobhpzht[address] [place], [place] [address]Dr. Jayceeroxi Laurel AMYLASEon 03-23-2022 Amylase [Catalytic activity/Vol] 21 U/L Critically low 25-115 [facility] Comment on above: Performed By: #### A MY LIPA, BNP ####[facility] Hzbparydfn63[address] [place], [place] [address]Dr. Jayceeroxi Laurel BNPon 03-23-2022 Natriuretic peptide B (Bld) [Mass/Vol] 6713.0 pg/mL Critically high <=1,800.0 [facility] Comment on above: Result Comment: repe ated Performed By: #### B ASSOCIATE ACCOUNT EXECUTIVE, CMP ####[facility] Rkrnjapvyx[address] [place], [place] [address]Dr. Bhavani Barragan Natriuretic peptide B (Bld) [Mass/Vol] 6961.0 pg/mL Critically high <=1,800.0 [facility] Comment on above: Performed By: #### A MY, LIPA, BNP ####[facility] Qccumvjyhh[address] [place], [place] [address]Dr. Jayceeroxi Barragan CBC W MANUAL DIFFon 03-23-20 ANISOCYTOSIS 1+ Normal [facility] Comment on above: Performed By: #### C BCJERSON ####[facility] Ncrexrwpkx[address] [place] [address]Dr. Yilan Barragan ATYPICAL LYMPH # Normal [facility] Comment on above: Performed By: #### C BCMAN ####[facility] Fruledfrgx34[address] [place] [id number]. Yilan Barragan ATYPICAL LYMPH % Normal [facility] Comment on above: Performed By: #### C BCJERSON ####[facility] Qdhntxiynb7664 [place] [address]Dr. Yilan Barragan BAND # 0.6 103/ul Critically high 0.0-0.3 [facility] Comment on above: Performed By: #### C OMID ####[facility] Hopqnsjzmc[address] [place] [address]Dr. Yilan Barragan BAND % 2 % Normal 0-5 [facility] Comment on above: Performed By: #### C OMID ####[facility] Mfpgwjxrxg[address] [place], [place] [address]Dr. Yilan Barragan BASOM # 0.00 103/ul Normal 0.00-0.10 [facility] Comment on above: Performed By: #### C OMID ####[facility] Xsgyguitks[address] [place], [place] [address]Dr. Yilan Barragan BASOM % 0.0 % Critically low 0.2-2.0 [facility] Comment on above: Performed By: #### C OMID ####[facility] Xzdktiuxma[address] [place], [place] [address]Dr. Yilan Barragan BLAST # Normal [facility] Comment on above: Performed By: #### C OMID ####[facility] Hwexyefjbm[address] [place], [place] [address]Dr. Yilan Barragan BLAST % Normal [facility] Comment on above: Performed By: #### C BCJERSON ####[facility] Vhfvmfaynd[address] [place], [place] [address]Dr. Jayceelan Barragan CORRECTED WBC Normal 4.0-11.0 The [facility] Comment on above: Performed By: #### C BCJERSON ####[facility] [address]we[address] [place], [place] [address]Dq. Bhavani Barragan EOS # 0.30 103/ul Normal 0.00-0.70 [facility] Comment on above: Performed By: #### C OMID ####[facility] Fzksambtlg5759 [place], [place] [address]Ko. Bhavani Barragan EOS% 1.0 % Normal 0.9-7.0 [facility] Comment on above: Performed By: #### C OMID ####[facility] Zsoblwztph9521 [place], [place] [address]Jt. Bhavani Barragan HCT 48.1 % Critically high 36.0-48.0 [facility] Comment on above: Performed By: #### C OMID ####[facility] K[address]igjchmpy5[address] [place] [id number]. Bhavani Barragan HGB 14.6 g/dl Normal 12.0-16.0 [facility] Comment on above: Performed By: #### C OMID ####[facility] Jqffsopnth05[address] [place] [phone]. Bhavani Barragan LYMPHM # 0.90 103/ul Critically low 1.20-3.80 [facility] Comment on above: Performed By: #### C OMID ####[facility] Uftrhsamcl7353 [place] [id number]. Bhavani Barragan LYMPHM% 3.0 % Critically low 20.5-60.0 [facility] Comment on above: Performed By: #### C OMID ####[facility] Bhzsxwirem7453 [place], [place] [address]Io. Bhavani Barragan MCH 29.4 pg Normal 26.7-34.0 [facility] Comment on above: Performed By: #### C OMID ####[facility] Gcentuegmf9617 [place] [id number]. Bhavani Barragan MCHC 30.4 g/dl Normal 29.9-35.2 [facility] Comment on above: Performed By: #### C OMID ####[facility] Sbljxhifjk85[address] [place] [phone]. Bhavani Barragan MCV 96.8 fL Normal 81.0-99.0 [facility] Comment on above: Performed By: #### C OMID ####[facility] Agaczfvwyh98[address] [place] [id number]. Bhavani Barragan METAMYELOCYTE # Normal [facility] Comment on above: Performed By: #### C OMID ####[facility] Ljtkdwuses8858 [place] [phone]. Bhavani Barragan METAMYELOCYTE % Normal [facility] Comment on above: Performed By: #### C OMID ####[facility] Orgastrszx[address] [place], [place] [address]Dr. Bhavani Barragan MONOM# 0.60 103/ul Normal 0.30-0.80 [facility] Comment on above: Performed By: #### C OMID ####[facility] Vjttcarewq[address] [place], [place] [address]Dr. Bhavani Barragan MONOM% 2.0 % Normal 1.7-12.0 [facility] Comment on above: Performed By: #### C OMID ####[facility] Sfmjvdczuu[address] [place], [place] [address]Dr. Bhavani Laurel MPV 10.2 fL Normal 9.5-13.5 [facility] Comment on above: Performed By: #### C OMID ####[facility] Vvholbrecm[address] [place], [place] [id number]. Bhavani Barragan MYELOCYTE # Normal [facility] Comment on above: Performed By: #### C OMID ####[facility] Ctkxjijxyc7031 [place] [phone]. Jayceeroxi Barragan MYELOCYTE % Normal [facility] Comment on above: Performed By: #### C OMID ####[facility] Jddohwgpzp[address] [place], [place] [address]Dr. Bhavani Barragan NRBC Normal [facility] Comment on above: Performed By: #### C OMID ####[facility] Wnbmoavjoq[address] [place], [place] [address]Dr. Bhavani Barragan PLT 391 103/ul Normal 150-450 [facility] Comment on above: Performed By: #### C BCMAN ####[facility] Tfcczugwro9[address] [place] [phone]. Bhavani Barragan RBC 4.97 106/ul Normal 4.20-5.40 [facility] Comment on above: Performed By: #### C BCJERSON ####[facility] Vdzcwqxsyw6137 [place] [phone]. Bhavani Barragan RDW 15.8 % Critically high 11.0-15.0 [facility] Comment on above: Performed By: #### C BCJERSON ####[facility] Okgpowkdwh3587 [place] [phone]. Bhavani Barragan SEG # 27.60 103/ul Critically high 1.40-6.50 [facility] Comment on above: Performed By: #### C OMID ####[facility] Feapzvhyuq1272 [place] [id number]. Bhavani Barragan SEG % 92.0 % Critically high 43.0-75.0 [facility] Comment on above: Performed By: #### C OMID ####[facility] Cxfrooxxmb[address] [place], [place] [id number]. Bhavani Barragan WBC 30.0 103/ul Critically high 4.0-11.0 [facility] Comment on above: Performed By: #### C OMID ####[facility] Logwkrpfzd3759 [place] [phone]. Bhavani Barragan LIPASEon 03-23-2022 Lipase [Catalytic activity/Vol] 35.0 U/L Critically low 73.0-393.0 [facility] Comment on above: Performed By: #### A MY, LIPA, BNP ####[facility] Lwsclrbftx[address] [place], [place] [address]Dr. Bhavani Barragan POINT OF CARE GLUCOSEon Glucose [Mass/Vol] 141 mg/dL Critically high 74-106 [facility] Comment on above: Performed By: #### P OCGLUC ####[facility] Jzrygzdlzy9484 [place] [address]Dr. Bhavani Barragan Glucose [Mass/Vol] 107 mg/dL Critically high 74-106 [facility] Comment on above: Performed By: #### P OCGLUC ####[facility] Alsmmsqfnc25[address] [place] [address]Dr. Jayceeroxi Barragan Glucose [Mass/Vol] 152 mg/dL Critically high 74-106 [facility] Comment on above: Performed By: #### P OCGLUC ####[facility] Tzxecrdlxm28[address] [place] [address]Dr. Bhavani Barragan PROF 14(COMP METB)on 022 Albumin [Mass/Vol] 2.4 g/dL Critically low 3.4-5.0 [facility] Comment on above: Performed By: #### B ASSOCIATE ACCOUNT EXECUTIVE, CMP ####[facility] Ujzkkhczjx[address] [place], [place] [address]Dr. Bhavani Barragan Albumin/Globulin [Mass ratio] 0.6 {ratio} Normal [facility] Comment on above: Performed By: #### B ASSOCIATE ACCOUNT EXECUTIVE, CMP ####[facility] Unscdolakv4[address] [place], [place] [address]Dr. Bhavani Barragan ALP [Catalytic activity/Vol] 298 U/L Critically high 46-116 [facility] Comment on above: Performed By: #### B ASSOCIATE ACCOUNT EXECUTIVE, CMP ####[facility] Qlpuhmjgnj[address] [place], [place] [address]Dr. Bhavani Barragan ALT [Catalytic activity/Vol] 280 U/L Critically high 14-59 [facility] Comment on above: Performed By: #### B ASSOCIATE ACCOUNT EXECUTIVE, CMP ####[facility] Hprxxnzprh[address] [place], [place] [address]Dr. Bhavani Barragan Anion gap [Moles/Vol] 15.2 mmol/L Normal [facility] Comment on above: Performed By: #### B ASSOCIATE ACCOUNT EXECUTIVE, CMP ####[facility] Zkefwnzjge[address] [place], [place] [address]Dr. Bhavani Barragan AST [Catalytic activity/Vol] 146 U/L Critically high 15-37 [facility] Comment on above: Performed By: #### B ASSOCIATE ACCOUNT EXECUTIVE, CMP ####[facility] Mbvwtottgr3523 [place] [id number]. Bhavani Barragan Bilirubin [Mass/Vol] 1.8 mg/dL Critically high 0.2-1.0 [facility] Comment on above: Performed By: #### B ASSOCIATE ACCOUNT EXECUTIVE, CMP ####[facility] Kavzwlaxrq28[address] [place] [phone]. Bhavani Barragan Calcium [Mass/Vol] 7.7 mg/dL Critically low 8.5-10.1 [facility] Comment on above: Performed By: #### B ASSOCIATE ACCOUNT EXECUTIVE, CMP ####[facility] Ryyehaeiel[address] [place], [place] [address]Dr. Bhavani Barragan Chloride [Moles/Vol] 105 mmol/L Normal 98-107 [facility] Comment on above: Performed By: #### B ASSOCIATE ACCOUNT EXECUTIVE, CMP ####[facility] Nnpeejgada24[address] [place], [place] [address]Dr. Bhavani Barragan CO2 [Moles/Vol] 22.0 mmol/L Normal 21.0-32.0 [facility] Comment on above: Performed By: #### B ASSOCIATE ACCOUNT EXECUTIVE, CMP ####[facility] Dsjattwikr[address] [place], [place] [address]Dr. Bhavani Barragan Creatinine [Mass/Vol] 1.44 mg/dL Critically high 0.55-1.02 [facility] Comment on above: Performed By: #### B ASSOCIATE ACCOUNT EXECUTIVE, CMP ####[facility] Apucnrwida[address] [place], [place] [address]Dr. hBavani Barragan EGFR-AF ICELANDIC 42 mL/min/1.73m2 Critically low >=60 [facility] Comment on above: Performed By: #### B ASSOCIATE ACCOUNT EXECUTIVE, CMP ####[facility] Knbsvlqoxz[address] [place], [place] [address]Dr. Bhavani Barragan EGFR-NON AF ICELANDIC 35 mL/min/1.73m2 Critically low >=60 [facility] Comment on above: Performed By: #### B ASSOCIATE ACCOUNT EXECUTIVE, CMP ####[facility] Qrciwriasi409[address] [place], [place] [address]Dr. Bhavani Barragan Globulin (S) [Mass/Vol] 4.0 g/dL Normal [facility] Comment on above: Performed By: #### B ASSOCIATE ACCOUNT EXECUTIVE, CMP ####[facility] Rmwgqbzvvj[address] [place], [place] [address]Dr. Bhavani Barragan Glucose [Mass/Vol] 136 mg/dL Critically high 74-106 [facility] Comment on above: Performed By: #### B ASSOCIATE ACCOUNT EXECUTIVE, CMP ####[facility] Afroppffrf8[address] [place], [place] [address]Dr. Jayceeroxi Laurel Potassium [Moles/Vol] 4.2 mmol/L Normal 3.5-5.1 [facility] Comment on above: Performed By: #### B ASSOCIATE ACCOUNT EXECUTIVE, CMP ####[facility] Yjbimjapir5[address] [place], [place] [address]Dr. Bhavani Barragan Protein [Mass/Vol] 6.4 g/dL Normal 6.4-8.2 [facility] Comment on above: Performed By: #### B ASSOCIATE ACCOUNT EXECUTIVE, CMP ####[facility] Erkmoyaglj7[address] [place], [place] [address]Dr. Bhavani Barragan Sodium [Moles/Vol] 138 mmol/L Normal 136-145 [facility] Comment on above: Performed By: #### B ASSOCIATE ACCOUNT EXECUTIVE, CMP ####[facility] Kousobsihc[address] [place], [place] [address]Dr. Bhavani Barragan Urea nitrogen [Mass/Vol] 23.0 mg/dL Critically high 7.0-18.0 [facility] Comment on above: Performed By: #### B ASSOCIATE ACCOUNT EXECUTIVE, CMP ####[facility] Jswrjqieke[address] [place], [place] [address]Dr. Bhavani Barragan Urea nitrogen/Creatinine [Mass ratio] 16.0 mg/mg Normal [facility] Comment on above: Performed By: #### B ASSOCIATE ACCOUNT EXECUTIVE, CMP ####[facility] Alrpwnvuet[address] [place], [place] [address]Dr. Bhavani Barragan PROTIMEon 03-23-2022 INR Coag (PPP) [Relative time] 1.53 {INR} Normal [facility] Comment on above: Performed By: #### P TT, PT ####[facility] Pwwecpemiw[address] [place], [place] [address]Dr. Bhavani Barragan INR GUIDELINES SEE BELOW Normal [facility] Comment on above: Result Comment: WALKER RED INR: 2.0 - 3.0 CONDITIONS NOT LISTED BELOW 2.5 - 3.5 FOR PROSTHETIC HEART VALVE REPLACEMENT 2.5 - 3.5 RECURRENT THROMBOSIS Performed By: #### P TT, PT ####[facility] Qhmgdludty07[address] [place] [address]Dr. Bhavani Barragan PT Coag (PPP) [Time] 16.1 s Critically high 9.0-11.6 [facility] Comment on above: Performed By: #### P TT, PT ####[facility] Cuydfmjwhj[address] [place], [place] [address]Dr. Bhavani Barragan PTTon 03-23-2022 aPTT Coag (Bld) [Time] 29.9 s Normal 22.3-36.2 [facility] Comment on above: Performed By: #### P TT, PT ####[facility] Xjdjiypido[address] [place], [place] [address]Dr. Bhavani Barragan BILIRUBIN CONJUGATED (DIRECT )on 03-22-2022 BILI, CONJUGATED 2.3 mg/dL Critically high 0.0-0.2 [facility] Comment on above: Performed By: #### D RAI ####[facility] Shqujriesl[address] [place], [place] [address]Dr. Bhavani Barragan BNPon 03-22-2022 Natriuretic peptide B (Bld) [Mass/Vol] 2436.0 pg/mL Critically high <=1,800.0 [facility] Comment on above: Result Comment: this BNP was run on specimen from ER drawn on 03/22 at 1606 Performed By: #### B ASSOCIATE ACCOUNT EXECUTIVE ####[facility] Xqobzfsszi[address] [place], [place] [address]Dr. Bhavani Barragan CBC W MANUAL DIFFon 03-22-20 ATYPICAL LYMPH # Normal [facility] Comment on above: Performed By: #### C BCJERSON ####[facility] [address]poxxfxtch[address] [place], [place] [address]Dr. Bhavani Barragan ATYPICAL LYMPH % Normal [facility] Comment on above: Performed By: #### C BCMAN ####[facility] Yzjskyhdrc76[address] [place] [id number]. Yilan Barragan BAND # 0.9 103/ul Critically high 0.0-0.3 [facility] Comment on above: Performed By: #### C BCJERSON ####[facility] Fpbwfrygmd668[address] [place] [address]Dr. Yilan Barragan BAND % 3 % Normal 0-5 [facility] Comment on above: Performed By: #### C BCJERSON ####[facility] Lhjxjugasx00[address] [place] [address]Dr. Yilan Barragan BASOM # 0.00 103/ul Normal 0.00-0.10 [facility] Comment on above: Performed By: #### C OMID ####[facility] Rmwkargyyk94[address] [place] [address]Dr. Yilan Barragan BASOM % 0.0 % Critically low 0.2-2.0 [facility] Comment on above: Performed By: #### C OMID ####[facility] Fturrsoqqt[address] [place] [address]Dr. Yilan Barragan BLAST # Normal [facility] Comment on above: Performed By: #### C OMID ####[facility] F[address]hrpqf[address] [place], [place] [address]Dr. Yilan Barragan BLAST % Normal [facility] Comment on above: Performed By: #### C OMID ####[facility] Apkzdmltas9137 [place] [address]Dr. Yilan Barragan CORRECTED WBC Normal 4.0-11.0 The [facility] Comment on above: Performed By: #### C OMID ####[facility] Kzostphdzz2755 [place] [address]Dr. Yilan Barragan EOS # 0.00 103/ul Normal 0.00-0.70 [facility] Comment on above: Performed By: #### C BCJERSON ####[facility] Zmobnqwnpm3648 [place] [address]Dr. Yilan Barragan EOS% 0.0 % Critically low 0.9-7.0 The [facility] Comment on above: Performed By: #### Jany ANNE ####[facility] Mhufhwaqne1126 [place], [place] [address]Ke. Bhavani Barragan HCT 44.6 % Normal 36.0-48.0 [facility] Comment on above: Performed By: #### Jany ANNE ####[facility] Ctchogdhki6090 [place], [place] [address]Vr. Bhavani Barragan HGB 13.9 g/dl Normal 12.0-16.0 [facility] Comment on above: Performed By: #### Jany ANNE ####[facility] Qzcuaqgfgw3175 [place] [phone]. Bhavani Barragan LYMPHM # 0.60 103/ul Critically low 1.20-3.80 The [facility] Comment on above: Performed By: #### Jany ANNE ####[facility] Exdzxcjyfr2751 [place] [phone]. Bhavani Barragan LYMPHM% 2.0 % Critically low 20.5-60.0 The [facility] Comment on above: Performed By: #### Jany ANNE ####[facility] Xzjoycnlnd3030 [place] [phone]. Bhavani Barragan MCH 29.8 pg Normal 26.7-34.0 [facility] Comment on above: Performed By: #### Jany ANNE ####[facility] Jvpdxofcrs8307 [place] [phone]. Bhavani Barragan MCHC 31.2 g/dl Normal 29.9-35.2 [facility] Comment on above: Performed By: #### Jany ANNE ####[facility] Kyolgjpuai8504 [place] [phone]. Bhavani Barragan MCV 95.7 fL Normal 81.0-99.0 [facility] Comment on above: Performed By: #### Jany ANNE ####[facility] Qggomtsgai6853 [place] [phone]. Bhavani Barragan METAMYELOCYTE # Normal The [facility] Comment on above: Performed By: #### Jany ANNE ####[facility] Evgmazzsae0573 [place] [phone]. Jayceeroxi Braragan METAMYELOCYTE % Normal The [facility] Comment on above: Performed By: #### C OIMD ####[facility] Mkcnnakdff1591 [place] [phone]. Bhavani Barragan MONOM# 0.60 103/ul Normal 0.30-0.80 [facility] Comment on above: Performed By: #### C OMID ####[facility] Fqjlyjxxcl3410 [place] [phone]. Bhavani Barragan MONOM% 2.0 % Normal 1.7-12.0 [facility] Comment on above: Performed By: #### C OMID ####[facility] Hfojscazun8118 [place] [phone]. Bhavani Laurel MPV 9.7 fL Normal 9.5-13.5 [facility] Comment on above: Performed By: #### C OMID ####[facility] Xhluutumld[address] [place], [place] [address]Dr. Bhavani Barragan MYELOCYTE # Normal [facility] Comment on above: Performed By: #### C OMID ####[facility] Qharruuzaq[address] [place], [place] [id number]. Jayceeroxi Barragan MYELOCYTE % Normal [facility] Comment on above: Performed By: #### C OMID ####[facility] Xatcedkzwk5683 [place] [phone]. Bhavani Barragan NRBC Normal [facility] Comment on above: Performed By: #### C OMID ####[facility] Khomdnzxad1950 [place] [phone]. Bhavani Barragan PLT 436 103/ul Normal 150-450 [facility] Comment on above: Performed By: #### C OMID ####[facility] Voggvocich8024 [place] [phone]. Jayceeroxi Laurel RBC 4.66 106/ul Normal 4.20-5.40 [facility] Comment on above: Performed By: #### C OMID ####[facility] Qfaoxekitp[address] [place], [place] [id number]. Bhavnai Barragan RDW 15.2 % Critically high 11.0-15.0 The [facility] Comment on above: Performed By: #### C OMID ####[facility] Hcnpeiqvoq0682 [place] [phone] Barragan SEG # 28.09 103/ul Critically high 1.40-6.50 [facility] Comment on above: Performed By: #### C OMID ####[facility] Iszdoxpigl2007 [place] [phone] Barragan SEG % 93.0 % Critically high 43.0-75.0 The [facility] Comment on above: Performed By: #### C OMID ####[facility] Wefrwuiidw8027 [place] [address]DrLydia Barragan WBC 30.2 103/ul Critically high 4.0-11.0 The [facility] Comment on above: Result Comment: test repeated critical value verified Performed By: #### C OMID ####[facility] Jysvuvdgpi6436 [place] [address]DrLydia Barragan CULTURE BLOODon 03-22-2022 Microscopic examination of blood, culture Culture Observations: NO GROWTH AT 5 DAYS. Normal [facility] Comment on above: Performed By: #### B LDCX2 ####[facility] Efmexdjylp0950 [place] [phone] Barragan Performed By: #### B LDCX1 ####[facility] Eeucgwhtty3294 [place] [address]DrLydia Barragan [facility]-19 [facility]on SARS-CoV-2 (COVID-19) RNA MATTHEW+probe Ql (Unsp spec) Not detected Normal NOT DETECTED [facility] Comment on above: Result Comment: When [...] for this test is supported by the [place] of [employer] and Human Service's declaration that [...] be used). Performed By: #### C VDTBH ####[facility] Zhkpnzaxbv[address] [place], [place] [address]Dr. Bhavani Barragan ER URINE PROFILEon 2 Bilirubin Ql (U) MODERATE Abnormal NEGATIVE The [facility] Comment on above: Performed By: #### U MICRO, ERUR ####[facility] Uxvkuydzzq106[address] [place], [place] [address]Dr. Bhavani Barragan Clarity (U) CLEAR Normal CLEAR [facility] Comment on above: Performed By: #### U MICRO, ERUR ####[facility] Rqathxxwxu[address] [place], [place] [address]Dr. Bhavani Barragan Color (U) YELLOW Normal YELLOW [facility] Comment on above: Performed By: #### U MICRO, ERUR ####[facility] Medkmcicmh25[address] [place], [place] [address]Dr. Bhavani Barragan ERUAHD A micrscopic examination will be performed if indicated. Normal [facility] Comment on above: Performed By: #### U MICRO, ERUR ####[facility] Wrfzgbaklp01[address] [place], [place] [address]Dr. Bhavani Barragan Glucose Ql (U) Negative Normal NEGATIVE The [facility] Comment on above: Performed By: #### U MICRO, ERUR ####[facility] Wpnbeebggv139[address] [place], [place] [address]Dr. Bhavani Barragan Hemoglobin Ql (U) TRACE-INTACT Abnormal NEGATIVE [facility] Comment on above: Performed By: #### U MICRO, ERUR ####[facility] Udkgelbxge777[address] [place], [place] [address]Dr. Bhavani Barragan Ketones Ql (U) Negative Normal NEGATIVE The [facility] Comment on above: Performed By: #### U MICRO, ERUR ####[facility] Yxoaavdgvz1695 [place] [address]Dr. Bhavani Barragan LEUKOCYTES LARGE Abnormal NEGATIVE [facility] Comment on above: Performed By: #### U MICRO, ERUR ####[facility] Myknjuasyd329[address] [place], [place] [address]Dr. Bhavani Barragan Nitrite Ql (U) Negative Normal NEGATIVE [facility] Comment on above: Performed By: #### U MICRO, ERUR ####[facility] Wqqgrxcrbh09[address] [place], [place] [address]Dr. Bhavani Barragan pH (U) 5.5 [pH] Normal 5-9 [facility] Comment on above: Performed By: #### U MICRO, ERUR ####[facility] Lipxnvpjqm7[address] [place], [place] [address]Dr. Bhavani Barragan Protein (U) [Mass/Vol] 30 mg/dL Abnormal NEGATIVE/ TRACE [facility] Comment on above: Performed By: #### U MICRO, ERUR ####[facility] Xglrzddkdl[address] [place], [place] [address]Dr. Bhavani Barragan SPEC GRAVITY 1.020 Normal 1.005-<=1.[address] [place] [address] Comment on above: Performed By: #### U MICRO, ERUR ####[facility] Iunfgkcppe[address] [place], [place] [address]Dr. Bhavani Barragan UR MICRO IND INDICATED Normal [facility] Comment on above: Performed By: #### U MICRO, ERUR ####[facility] Lqzzrdnses09[address] [place], [place] [address]Dr. Bhavani Barragan Urobilinogen Qn (U) 4 {Ridge'U}/dL Abnormal 0.2 - 1.0 [facility] Comment on above: Performed By: #### U MICRO, ERUR ####[facility] Jxdmwgjwpr[address] [place], [place] [address]Dr. Bhavani Barragan LACTATE/LACTIC ACIDon 2021 Lactate [Moles/Vol] 0.9 mmol/L Normal 0.4-2.0 [facility] Comment on above: Performed By: #### L ACT ####[facility] Tkzsokdvxt4668 [place] [address]Dr. Bhavani Barragan Lactate [Moles/Vol] 1.2 mmol/L Normal 0.4-2.0 [facility] Comment on above: Performed By: #### L ACT ####[facility] Enabuodrqs3794 [place] [address]Dr. Bhavani Barragan POINT OF CARE GLUCOSEon Glucose [Mass/Vol] 188 mg/dL Critically high 74-106 [facility] Comment on above: Performed By: #### P OCGLUC ####[facility] Uznlzlizpe[address] [place], [place] [address]Dr. Bhavani Barragan PROF 14(COMP METB)on 022 Albumin [Mass/Vol] 2.9 g/dL Critically low 3.4-5.0 [facility] Comment on above: Performed By: #### C MP ####[facility] Icianlotkx[address] [place], [place] [address]Dr. Bhavain Barragan Albumin/Globulin [Mass ratio] 0.7 {ratio} [facility] Comment on above: Performed By: #### C MP ####[facility] Xscjabetao6536 [place] [address]Dr. Bhavani Barragan ALP [Catalytic activity/Vol] 372 U/L Critically high 46-116 [facility] Comment on above: Performed By: #### C MP ####[facility] Qwchweklky1645 [place] [address]Dr. Bhavani Barragan ALT [Catalytic activity/Vol] 402 U/L Critically high 14-59 [facility] Comment on above: Performed By: #### C MP ####[facility] Zwebijlsdu1443 [place] [address]Dr. Bhavani Barragan Anion gap [Moles/Vol] 10.6 mmol/L Normal [facility] Comment on above: Performed By: #### C MP ####[facility] Aosfcrzqqv1995 [place] [address]Dr. Bhavani Barragan AST [Catalytic activity/Vol] 346 U/L Critically high 15-37 [facility] Comment on above: Performed By: #### C MP ####[facility] Qelkikhfwd7198 [place] [address]Dr. Bhavani Barragan Bilirubin [Mass/Vol] 2.8 mg/dL Critically high 0.2-1.0 [facility] Comment on above: Performed By: #### C MP ####[facility] Rbndpgbbuo74[address] [place], [place] [address]Dr. Bhavani Barragan Calcium [Mass/Vol] 7.9 mg/dL Critically low 8.5-10.1 [facility] Comment on above: Performed By: #### C MP ####[facility] Ahypbiwryc50[address] [place], [place] [address]Dr. Bhavani Barragan Chloride [Moles/Vol] 106 mmol/L Normal 98-107 [facility] Comment on above: Performed By: #### C MP ####[facility] Ayhtohyhme[address] [place], [place] [address]Dr. Bhavani Barragan CO2 [Moles/Vol] 23.5 mmol/L Normal 21.0-32.0 The [facility] Comment on above: Performed By: #### C MP ####[facility] Kymasotiwo52[address] [place], [place] [address]Dr. Bhavani Barragan Creatinine [Mass/Vol] 1.57 mg/dL Critically high 0.55-1.02 [facility] Comment on above: Performed By: #### C MP ####[facility] Qarmuohimj8328 [place] [address]Dr. Bhavani Barragan EGFR-AF ICELANDIC 38 mL/min/1.73m2 Critically low >=60 [facility] Comment on above: Performed By: #### C MP ####[facility] Beemhteeov[address] [place], [place] [address]Dr. Bhavani Barragan EGFR-NON AF ICELANDIC 32 mL/min/1.73m2 Critically low >=60 [facility] Comment on above: Performed By: #### C MP ####[facility] Kxsupzpdkr7557 [place] [address]Dr. Bhavani Barragan Globulin (S) [Mass/Vol] 4.0 g/dL Normal [facility] Comment on above: Performed By: #### C MP ####[facility] Tpddvbdynq[address] [place], [place] [address]Dr. Bhavani Barragan Glucose [Mass/Vol] 151 mg/dL Critically high 74-106 [facility] [place] Comment on above: Performed By: #### C MP ####[facility] Ijmkuujouw[address] [place], [place] [address]Dr. Bhavani Barragan Potassium [Moles/Vol] 4.1 mmol/L Normal 3.5-5.1 [facility] Comment on above: Performed By: #### C MP ####[facility] Wdzbnoahmr[address] [place], [place] [address]Dr. Bhavani Barragan Protein [Mass/Vol] 6.9 g/dL Normal 6.4-8.2 The [facility] Comment on above: Performed By: #### C MP ####[facility] Coflhredpp65[address] [place], [place] [address]Dr. Bhavani Barragan Sodium [Moles/Vol] 136 mmol/L Normal 136-145 [facility] Comment on above: Performed By: #### C MP ####[facility] Khklnhblkq225[address] [place], [place] [address]Dr. Bhavani Barragan Urea nitrogen [Mass/Vol] 23.0 mg/dL Critically high 7.0-18.0 [facility] Comment on above: Performed By: #### C MP ####[facility] Ollmzskvwl[address] [place], [place] [address]Dr. Bhavani Barragan Urea nitrogen/Creatinine [Mass ratio] 14.6 mg/mg Normal [facility] Comment on above: Performed By: #### C MP ####[facility] Zyrfwtmqtv39[address] [place], [place] [address]Dr. Bhavani Barragan URINE MICROSCOPIC ONLYon BACTERIA LARGE Abnormal NONE SEEN [facility] Comment on above: Performed By: #### U MICRO, ERUR ####[facility] Rlxvmqzxli[address] [place], [place] [address]Dr. Bhavani Barragan Bacteria identified Cx Nom (U) INDICATED Normal [facility] Comment on above: Performed By: #### U MICRO, ERUR ####[facility] Kysylvmzgs0229 [place] [address]Dr. Bhavani Barragan CAST NONE SEEN Normal NONE SEEN [facility] Comment on above: Performed By: #### U MICRO, ERUR ####[facility] Fdlsxnaonz8761 [place] [address]Dr. Bhavani Barragan Crystals LM Nom (Urine sed) NONE SEEN Normal NONE SEEN [facility] Comment on above: Performed By: #### U MICRO, ERUR ####[facility] Prvkrsfanx6318 [place] [address]Dr. Bhavani Barragan Epithelial cells LM Ql (Urine sed) FEW Abnormal NONE SEEN /RARE [facility] Comment on above: Performed By: #### U MICRO, ERUR ####[facility] Acbhitfqhi1573 [place] [address]Dr. Bhavani Barragan MUCOUS NONE SEEN Normal NONE SEEN [facility] Comment on above: Performed By: #### U MICRO, ERUR ####[facility] Tvuhztsecz1113 [place] [address]Dr. Bhavani Barragan RBC 2-5 Abnormal 0-2 [facility] Comment on above: Performed By: #### U MICRO, ERUR ####[facility] Ekxwcldczm6732 [place] [address]Dr. Bhavani Barragan WBC (U) [#/Vol] /uL Abnormal NONE SEEN The [facility] Comment on above: Performed By: #### U MICRO, ERUR ####[facility] Bdhpzgmlyr9929 [place] [address]Dr. Bhavani Barragan US SINGLE QUAD RT UPPERon US SINGLE QUAD RT UPPER Normal [facility] XR CHEST 1 Von 03-22-2022 XR CHEST 1 V Normal [facility] CBC AND ELECTRONIC DIFFon Basophils (Bld) [#/Vol] 0.23 10*3/uL High 0.00-0.15 [facility] Comment on above: Performed By: #### R ETIC, [id number] #### [facility] [place] [facility] (DEFAULT) [address] [place] [address] Basophils/100 WBC (Bld) 0.9 % Normal [facility] Comment on above: Performed By: #### R ETIC, [id number] #### [facility] [place] [facility] (DEFAULT) [address] [place] [address] DIFF STATUS Electronic Differential Normal [facility] Comment on above: Performed By: #### R ETIC, [id number] #### [facility] (DEFAULT) [address] [place] [address] Eosinophils (Bld) [#/Vol] 10*3/uL Normal 0.00-0.42 [facility] Comment on above: Performed By: #### R ETIC, [id number] #### [facility] (DEFAULT) [address] [place] [address] Eosinophils/100 WBC (Bld) 0.0 % Normal [facility] Comment on above: Performed By: #### R ETIC, [id number] #### [facility] (DEFAULT) [address] [place] [address] Hematocrit (Bld) [Volume fraction] 52.1 % High 34.9-44.3 [facility] Comment on above: Performed By: #### R ETIC, [id number] #### [facility] (DEFAULT) [address] [place] [address] Hemoglobin (Bld) [Mass/Vol] 16.8 g/dL High 11.4-15.2 [facility] Comment on above: Performed By: #### R ETIC, [id number] #### U [facility] (DEFAULT) [address] [address] Immature Grans % 1.3 % Normal [facility] Comment on above: Performed By: #### R ETIC, [id number] #### [facility] [place] [facility] (DEFAULT) [address] [place] [address] Immature Grans Absolute 0.34 K/uL High <=0.09 [facility] Comment on above: Performed By: #### R ETIC, [id number] #### [facility] (DEFAULT) [address] [place] [address] Lymphocytes (Bld) [#/Vol] 1.24 10*3/uL Normal 1.16-3.51 [facility] Comment on above: Performed By: #### R ETIC, [id number] #### U [facility] (DEFAULT) [address] [place] [address] Lymphocytes/100 WBC (Bld) 4.9 % Normal [facility] Comment on above: Performed By: #### R ETIC, [id number] #### U [facility] (DEFAULT) [address] [address] MCV (RBC) [Entitic vol] 97.4 fL Normal 79.6-97.7 [facility] Comment on above: Performed By: #### R ETIC, [id number] #### [facility] (DEFAULT) [address] [place] [address] Mean Cell Hgb 31.4 pg Normal 25.9-33.9 [facility] Comment on above: Performed By: #### R ETIC, [id number] #### [facility] (DEFAULT) [address] [address] Mean Cell Hgb Conc 32.2 g/dL Normal 31.4-35.9 [facility] Comment on above: Performed By: #### R ETIC, [id number] #### [facility] (DEFAULT) [address] [place] [address] Monocytes (Bld) [#/Vol] 0.47 10*3/uL Normal 0.22-0.87 [facility] Comment on above: Performed By: #### R ETIC, [id number] #### [facility] (DEFAULT) [address] [place] [address] Monocytes/100 WBC (Bld) 1.9 % Normal [facility] Comment on above: Performed By: #### R ETIC, [id number] #### [facility] (DEFAULT) [address] [address] Nucleated RBC 0.1 /100 WBC Normal <=0.2 [facility] Comment on above: Performed By: #### R ETIC, [id number] #### [facility] (DEFAULT) [address] [address] Platelet mean volume (Bld) [Entitic vol] 11.1 fL Normal 8.5-12.2 [facility] Comment on above: Performed By: #### R KELLYC, [id number] #### U [facility] (DEFAULT) [address] [address] Platelets (Bld) [#/Vol] 174 10*3/uL Normal 150-393 [facility] Comment on above: Performed By: #### R ETIC, [id number] #### [facility] (DEFAULT) [address] [address] RBC (Bld) [#/Vol] 5.35 10*6/uL High 3.91-5.04 [facility] Comment on above: Performed By: #### R ETIC, [id number] #### U [facility] (DEFAULT) [address] [address] RBC Distribution 16.3 % High 10.8-14.9 [facility] Comment on above: Performed By: #### R ETIC, [id number] #### [facility] (DEFAULT) [address] [address] Segs + Bands Auto 91.0 % Normal [facility] Comment on above: Performed By: #### R ETIC, [id number] #### [facility] (DEFAULT) [address] [address] Segs + Bands,Absolute Auto 23.08 K/uL High 1.64-7.28 [facility] Comment on above: Performed By: #### R ETIC, [id number] #### U [facility] (DEFAULT) [address] [place] [address] WBC (Bld) [#/Vol] 25.37 10*3/uL High 3.99-11.19 [facility] Comment on above: Performed By: #### R KERLINE, [id number] #### U [facility] (DEFAULT) [address] [place] [address] CMPN WITHOUT GLUCOSEon 11-02 Albumin [Mass/Vol] 4.3 g/dL Normal 3.5-5.0 [facility] Comment on above: Performed By: #### C MPNG #### U [facility] (DEFAULT) [address] [place] [address] ALP [Catalytic activity/Vol] 80 U/L Normal 32-126 [facility] Comment on above: Performed By: #### C MPNG #### [facility] (DEFAULT) [address] [place] [address]202 ALT [Catalytic activity/Vol] 8 U/L Low 9-48 [facility] Comment on above: Performed By: #### C MPNG #### [facility] (DEFAULT) [address] [place] [address]772 Anion gap [Moles/Vol] 13 mmol/L Normal 7-17 [facility] Comment on above: Performed By: #### C MPNG #### [facility] (DEFAULT) [address] [place] [address] 45227 AST [Catalytic activity/Vol] 14 U/L Normal 14-40 [facility] Comment on above: Performed By: #### C MPNG #### [facility] (DEFAULT) [address] [address] Bilirubin [Mass/Vol] 0.5 mg/dL Normal <1.5 [facility] Comment on above: Performed By: #### C MPNG #### [facility] (DEFAULT) [address] [place] [address] Calcium [Mass/Vol] 9.1 mg/dL Normal 8.6-10.5 [facility] Comment on above: Performed By: #### C MPNG #### U [facility] (DEFAULT) [address] [place] [address] Chloride [Moles/Vol] 108 mmol/L Normal 98-108 [facility] Comment on above: Performed By: #### C MPNG #### [facility] (DEFAULT) [address] [place] [address]596 CO2 [Moles/Vol] 21 mmol/L Low 22-30 [facility] Comment on above: Performed By: #### C MPNG #### U [facility] (DEFAULT) [address] [place] [address]998 Creatinine [Mass/Vol] 1.36 mg/dL High 0.50-1.20 [facility] Comment on above: Performed By: #### C MPNG #### U [facility] (DEFAULT) [address] [place] [address] EST GFR, 45 mL/min/1.73sqM Low >=60 [facility] Comment on above: Performed By: #### C MPNG #### U [facility] (DEFAULT) [address] [place] [address] EST GFR,Non 37 mL/min/1.73sqM Low >=60 [facility] Comment on above: Performed By: #### C MPNG #### U [facility] (DEFAULT) [address] [place] [address] Potassium [Moles/Vol] 5.0 mmol/L Normal 3.5-5.0 [facility] Comment on above: Performed By: #### C MPNG #### U [facility] (DEFAULT) [address] [place] [address]214 Protein [Mass/Vol] 7.6 g/dL Normal 6.4-8.3 [facility] Comment on above: Performed By: #### C MPNG #### U [facility] (DEFAULT) [address] [place] [address] Sodium [Moles/Vol] 137 mmol/L Normal 133-143 [facility] Comment on above: Performed By: #### C MPNG #### [facility] (DEFAULT) [address] [place] [address] 73248 Urea nitrogen [Mass/Vol] 42 mg/dL High 06-08 [facility] Comment on above: Performed By: #### C MPNG #### U [facility] (DEFAULT) [address] [place] [address] 06755 Urea nitrogen/Creatinine [Mass ratio] 31 mg/mg Normal [facility] Comment on above: Performed By: #### C MPNG #### [facility] (DEFAULT) [address] [place] [address] 94283 FERRITINon 11-02-2021 Ferritin [Mass/Vol] 19.2 ng/mL Normal 10.0-291.0 [facility] Comment on above: Performed By: #### F ERIB #### [facility] (DEFAULT) [address] [place] [address] 13884 RETICULOCYTESon 11-02-2021 Retic Absolute 0.1177 M/uL High 0.0324-0.114 2 [facility] Comment on above: Performed By: #### R ETIC, [id number] #### [facility] (DEFAULT) [address] [place] [address] 56884 Retic Count 2.20 % Normal 0.74-2.54 [facility] Comment on above: Performed By: #### R ETIC, [id number] #### [facility] (DEFAULT) [address] [place] [address] 22463 CBC AND ELECTRONIC DIFFon Basophils (Bld) [#/Vol] 0.20 10*3/uL High 0.00-0.15 [facility] Comment on above: Performed By: #### L [id number] #### [facility] (DEFAULT) [address] [place] [address] 71897 Basophils/100 WBC (Bld) 0.9 % Normal [facility] Comment on above: Performed By: #### L AB980 #### [facility] (DEFAULT) [address] [place] [address] 56494 DIFF STATUS Electronic Differential Normal [facility] Comment on above: Performed By: #### L AB980 #### [facility] (DEFAULT) [address] [place] [address] 02373 Eosinophils (Bld) [#/Vol] 10*3/uL Normal 0.00-0.42 [facility] Comment on above: Performed By: #### L AB980 #### [facility] (DEFAULT) [address] [place] [address] 92576 Eosinophils/100 WBC (Bld) 0.1 % Normal [facility] Comment on above: Performed By: #### L [id number] #### [facility] (DEFAULT) [address] [place] [address] 85941 Hematocrit (Bld) [Volume fraction] 47.4 % High 34.9-44.3 [facility] Comment on above: Performed By: #### L AB980 #### [facility] (DEFAULT) [address] [place] [address] 64948 Hemoglobin (Bld) [Mass/Vol] 15.4 g/dL High 11.4-15.2 [facility] Comment on above: Performed By: #### L AB980 #### [facility] (DEFAULT) [address] [place] [address] 45908 Immature Grans % 3.0 % Normal [facility] Comment on above: Performed By: #### L AB980 #### [facility] (DEFAULT) [address] [place] [address] 28316 Immature Grans Absolute 0.67 K/uL High <=0.09 [facility] Comment on above: Performed By: #### L [id number] #### [facility] (DEFAULT) [address] [place] [address] 04592 Lymphocytes (Bld) [#/Vol] 1.12 10*3/uL Low 1.16-3.51 [facility] Comment on above: Performed By: #### L AB980 #### [facility] (DEFAULT) [address] [place] [address] 11115 Lymphocytes/100 WBC (Bld) 5.0 % Normal [facility] Comment on above: Performed By: #### L AB980 #### [facility] (DEFAULT) [address] [address] MCV (RBC) [Entitic vol] 101.5 fL High 79.6-97.7 [facility] Comment on above: Performed By: #### L AB980 #### [facility] (DEFAULT) [address] [address] Mean Cell Hgb 33.0 pg Normal 25.9-33.9 [facility] Comment on above: Performed By: #### L AB980 #### [facility] (DEFAULT) [address] [address] Mean Cell Hgb Conc 32.5 g/dL Normal 31.4-35.9 [facility] Comment on above: Performed By: #### L AB980 #### [facility] (DEFAULT) [address] [address] Monocytes (Bld) [#/Vol] 0.51 10*3/uL Normal 0.22-0.87 [facility] Comment on above: Performed By: #### L AB980 #### [facility] (DEFAULT) [address] [address] Monocytes/100 WBC (Bld) 2.3 % Normal [facility] Comment on above: Performed By: #### L AB980 #### [facility] (DEFAULT) [address] [address] Nucleated RBC 0.1 /100 WBC Normal <=0.2 [facility] Comment on above: Performed By: #### L AB980 #### [facility] (DEFAULT) [address] [address] Platelet mean volume (Bld) [Entitic vol] 10.4 fL Normal 8.5-12.2 [facility] Comment on above: Performed By: #### L AB980 #### [facility] (DEFAULT) [address] [address] Platelets (Bld) [#/Vol] 289 10*3/uL Normal 150-393 [facility] Comment on above: Performed By: #### L AB980 #### [facility] (DEFAULT) [address] [address] RBC (Bld) [#/Vol] 4.67 10*6/uL Normal 3.91-5.04 [facility] Comment on above: Performed By: #### L AB980 #### [facility] (DEFAULT) [address] [address] RBC Distribution 14.8 % Normal 10.8-14.9 [facility] Comment on above: Performed By: #### L AB980 #### [facility] (DEFAULT) [address] [address] Segs + Bands Auto 88.7 % Normal [facility] Comment on above: Performed By: #### L AB980 #### [facility] (DEFAULT) [address] [address] Segs + Bands,Absolute Auto 20.03 K/uL High 1.64-7.28 [facility] Comment on above: Performed By: #### L AB980 #### [facility] (DEFAULT) [address] [address] WBC (Bld) [#/Vol] 22.56 10*3/uL High 3.99-11.19 [facility] Comment on above: Performed By: #### L AB980 #### [facility] (DEFAULT) [address] [place] [address] IMMUNOPHENOTYPING,PERIPH BLO ODon 08-17-2021 BKR DX CODE Use Ordering Normal [facility] Comment on above: Order Comment: IMMUN OPHENOTYPING DIAGNOSIS PATIENT NAME: MARÍA ELENA TAFOYA : 1940 ACCN#: [id number] REVIEWED BY: LAURA Moreno [id number] SAMPLE TYPE: Peripheral Blood LABORATORY INTERPRETATION: There [...] % are B cells (CD19+) with a Wilber:Lambda ratio of 2:2 , 73.5 % are T cells (CD3+) with a CD4:CD8 ratio of 2.2 and an absolute CD4+/CD3+ count of 549 ABS/mm3 and 23.7 % are NK cells (positive for CD56 and/or CD16 and negative for CD3). ==== MARKER DESCRIPTION LYM REG% ABS/mm3 NORMAL % NML ABS ==== ABSOLUTE LYMPHOCYTE COUNT [phone] ==== CD19+ B CELL 4.4 49 2.0-21.0 [...] determined The Flow Cytometry Laboratory at [facility]. It has not been cleared or approved by the FDA. This laboratory is certified under the Clinical Laboratory Improvement Amendments (CLIA) as qualified to perform high complexity clinical laboratory testing. This test is used for clinical purposes. It should not be regarded as investigational or for research. The [facility] lower limit of CLL MRD detection is 0.1% of the gated lymphocytes. Performed By: #### P BIPP #### [facility] (DEFAULT) [address] [place] [address] Flow Interpretation See Comment Normal [facility] Comment on above: Order Comment: IMMUN OPHENOTYPING DIAGNOSIS PATIENT NAME: MARÍA ELENA TAFOYA : 1940 ACCN#: [id number] REVIEWED BY: LAURA Moreno [id number] SAMPLE TYPE: Peripheral Blood LABORATORY INTERPRETATION: There [...] % are B cells (CD19+) with a Wilber:Lambda ratio of 2:2 , 73.5 % are T cells (CD3+) with a CD4:CD8 ratio of 2.2 and an absolute CD4+/CD3+ count of 549 ABS/mm3 and 23.7 % are NK cells (positive for CD56 and/or CD16 and negative for CD3). ==== MARKER DESCRIPTION LYM REG% ABS/mm3 NORMAL % NML ABS ==== ABSOLUTE LYMPHOCYTE COUNT [phone] ==== CD19+ B CELL 4.4 49 2.0-21.0 [...] determined The Flow Cytometry Laboratory at [facility]. It has not been cleared or approved by the FDA. This laboratory is certified under the Clinical Laboratory Improvement Amendments (CLIA) as qualified to perform high complexity clinical laboratory testing. This test is used for clinical purposes. It should not be regarded as investigational or for research. The [facility] Flow [facility] lower limit of CLL MRD detection is 0.1% of the gated lymphocytes. Performed By: #### P BIPP #### [facility] (DEFAULT) [address] [place] [address] Flow Interpreted by: Efrem Charlton MD [facility] Comment on above: Order Comment: IMMUN OPHENOTYPING DIAGNOSIS PATIENT NAME: MARÍA ELENA TAFOYA : 1940 ACCN#: [id number] REVIEWED BY: LAURA Moreno [id number] SAMPLE TYPE: Peripheral Blood LABORATORY INTERPRETATION: There [...] % are B cells (CD19+) with a Wilber:Lambda ratio of 2:2 , 73.5 % are T cells (CD3+) with a CD4:CD8 ratio of 2.2 and an absolute CD4+/CD3+ count of 549 ABS/mm3 and 23.7 % are NK cells (positive for CD56 and/or CD16 and negative for CD3). ==== MARKER DESCRIPTION LYM REG% ABS/mm3 NORMAL % NML ABS ==== ABSOLUTE LYMPHOCYTE COUNT [phone] ==== CD19+ B CELL 4.4 49 2.0-21.0 [...] determined The Flow Cytometry Laboratory at [facility]. It has not been cleared or approved by the FDA. This laboratory is certified under the Clinical Laboratory Improvement Amendments (CLIA) as qualified to perform high complexity clinical laboratory testing. This test is used for clinical purposes. It should not be regarded as investigational or for research. The [facility] Flow [facility] Laboratory lower limit of CLL MRD detection is 0.1% of the gated lymphocytes. Performed By: #### P BIPP #### [facility] (DEFAULT) [address] [address] [id number] MUTATION DETECTION , BLOODon 08-17-2021 Receiving Status Accessioned in Lab Normal [facility] Comment on above: Performed By: #### J AK2B #### [facility] (DEFAULT) [address] [place] [address] Performed By: #### B CRSCR #### [facility] (DEFAULT) [address] [place] [address] 76739 CBC with Differentialon 01-17 Basophils (Bld) [#/Vol] 0.20 thou/mcL Normal 0.00-0.20 [facility] Comment on above: Performed By: #### 5 7021-8 #### [facility] [address] [place] [address] 63312 Basophils/100 WBC (Bld) 0.9 % Normal 0.0-2.0 [facility] Comment on above: Performed By: #### 5 7021-8 #### [facility] [address] [place] [address] 47456 Eosinophils (Bld) [#/Vol] 0.00 thou/mcL Normal 0.00-0.70 [facility] Comment on above: Performed By: #### 5 7021-8 #### [facility] [address] [place] [address] 01654 Eosinophils/100 WBC (Bld) 0.1 % Normal 0.0-7.0 [facility] Comment on above: Performed By: #### 5 7021-8 #### [facility] [address] [place] [address] 84632 Erythrocyte distribution width (RBC) [Entitic vol] 17.1 % High 11.0-14.8 [facility] Comment on above: Performed By: #### 5 7021-8 #### [address] [address] Hematocrit (Bld) [Volume fraction] 36.3 % Normal 35.0-45.0 [facility] Comment on above: Performed By: #### 5 7021-8 #### [address] [address] Hemoglobin (Bld) [Mass/Vol] 11.8 g/dL Low 12.0-16.0 [facility] Comment on above: Performed By: #### 5 7021-8 #### [address] [address] Lymphocytes (Bld) [#/Vol] 1.40 thou/mcL Normal 1.00-4.80 [facility] Comment on above: Performed By: #### 5 7021-8 #### [address] [address] Lymphocytes/100 WBC (Bld) 7.1 % Low 22.0-44.0 [facility] Comment on above: Performed By: #### 5 7021-8 #### [address] [address] MCH (RBC) [Entitic mass] 33.0 Picograms Normal 27.0-34.0 [facility] Comment on above: Performed By: #### 5 7021-8 #### [address] [address] MCHC (RBC) [Mass/Vol] 32.5 g/dL Normal 32.0-36.0 [facility] Comment on above: Performed By: #### 5 7021-8 #### [address] [address] MCV (RBC) [Entitic vol] 101.7 fL High 80.0-97.0 [facility] Comment on above: Performed By: #### 5 7021-8 #### [address] [address] Monocytes (Bld) [#/Vol] 0.50 thou/mcL Normal 0.00-0.90 [facility] Comment on above: Performed By: #### 5 7021-8 #### [facility] [address] [place] [address] 11454 Monocytes/100 WBC (Bld) 2.7 % Normal 0.0-12.0 [facility] Comment on above: Performed By: #### 5 7021-8 #### [facility] [address] [place] [address]358 Neutrophils (Bld) [#/Vol] 18.10 thou/mcL High 1.80-7.70 [facility] Comment on above: Performed By: #### 5 7021-8 #### [facility] [address] [place] [address] 41034 Neutrophils/100 WBC (Bld) 89.2 % High 40.0-70.0 [facility] Comment on above: Performed By: #### 5 7021-8 #### [facility] [address] [place] [address] 41172 Platelet mean volume (Bld) [Entitic vol] 8.2 fL Normal 6.2-12.1 [facility] Comment on above: Performed By: #### 5 7021-8 #### [facility] [address] [place] [address] Platelets (Bld) [#/Vol] 355 thou/mcL Normal 142-424 [facility] Comment on above: Performed By: #### 5 7021-8 #### [facility] [address] [place] [address] 10466 RBC (Bld) [#/Vol] 3.57 million/mcL Low 3.80-5.10 [facility] Comment on above: Performed By: #### 5 7021-8 #### [facility] [address] [place] [address] WBC (Bld) [#/Vol] 20.3 thou/mcL High 4.6-10.2 [facility] Comment on above: Performed By: #### 5 7021-8 #### [facility] [address] [place] [address] Ammoniaon 09-27-2020 Ammonia (P) [Mass/Vol] 21 umol/L Normal 9-30 [facility] Comment on above: Order Comment: Items in this order include: Ammonia Testing Performed By: [facility] [address] [place] [address]. [place] [address] Dr. Donnie Jean, Inspector Mechanical Items in this order include: Ammonia Testing Performed By: [facility] [address] [place], [place] [address] Dr. Donnie Jean, Inspector Mechanical Performed By: #### C 709 #### [facility]. [address] [place] [address] [place] [address] B12/Folateon 09-27-2020 Cobalamin (Vitamin B12) [Mass/Vol] 683 pg/mL Normal 239-931 [facility] Comment on above: Order Comment: Items in this order include: Culture, Urine Testing Performed By: [facility] [address] [place] [address] Donnie Jean, Inspector Mechanical Result Comment: Plea se note: Over the counter high dose supplements of Biotin that are 20 to 300 times greater than the adequate daily intake of 30 mcg/day for adults may cause a bias of 10% or more to be observed in the measured Vitamin B-12 concentrations. Performed By: #### C 734 #### [facility] [address] [place] [address] [address] [place] [address] Folate 9.26 ng/mL Normal 2.80-20.00 [facility] Comment on above: Order Comment: Items in this order include: Culture, Urine Testing Performed By: [facility] [address] [place] [address] Donnie Jean, Inspector Mechanical Result Comment: Plea se note: Over the counter high dose supplements of Biotin that are 20 to 300 times greater than the adequate daily intake of 30 mcg/day for adults may cause a bias of 10% or more to be observed in the measured Folate concentrations. Performed By: #### C 734 #### [facility] [address] [place] [address] CBC with differentialon 09-18 Erythrocyte distribution width (RBC) [Ratio] 15.4 % Normal 11.5-15.5 [facility] Comment on above: Order Comment: Items in this order include: Culture, Urine Testing Performed By: [facility] [address] [place] [address] Dr. Donnie Jean, Inspector Mechanical Performed By: #### C 734 #### [facility] [address] [place] [address] Hematocrit (Bld) [Volume fraction] 39.8 % Normal 37.0-47.0 [facility] Comment on above: Order Comment: Items in this order include: Culture, Urine Testing Performed By: [facility] [place] [address] Dr. Donnie Jean, Inspector Mechanical Performed By: #### C 734 #### [facility] [address] [place] [address] Hemoglobin (Bld) [Mass/Vol] 12.3 g/dL Normal 11.5-15.5 [facility] Comment on above: Order Comment: Items in this order include: Culture, Urine Testing Performed By: [facility] [place] [address] Dr. Donnie Jean, Inspector Mechanical Performed By: #### C 734 #### [facility] [address] [place] [address] MCH (RBC) [Entitic mass] 34.2 pg High 27.0-31.0 [facility] Comment on above: Order Comment: Items in this order include: Culture, Urine Testing Performed By: [facility] [address] [place] [address] Dr. Donnie Jean, Inspector Mechanical Performed By: #### C 734 #### [facility] [address] [place] [address] MCHC (RBC) [Mass/Vol] 30.9 g/dL Low 32.0-36.0 [facility] Comment on above: Order Comment: Items in this order include: Culture, Urine Testing Performed By: [facility] [address] [place] [address]. [place] [address] Dr. Donnie Jean, Inspector Mechanical Performed By: #### C 734 #### [facility] [address] [place] [address] [address] [place] [address] MCV (RBC) [Entitic vol] 110.6 fL High 78.0-100.0 [facility] Comment on above: Order Comment: Items in this order include: Culture, Urine Testing Performed By: [facility] [address] [place] [address]. [place] [address] Dr. Donnie Jean, Inspector Mechanical Performed By: #### C 734 #### [facility] [address] [place] [address] [address] [place] [address] Platelet mean volume (Bld) [Entitic vol] 10.2 fL Normal 8.9-12.6 [facility] Comment on above: Order Comment: Items in this order include: Culture, Urine Testing Performed By: [facility] [address] [place] [address]. [place] [address] Dr. Donnie Jean, Inspector Mechanical Performed By: #### C 734 #### [facility] [address] [place] [address] [address] [place] [address] Platelets (Bld) [#/Vol] 423 K CUMM High 130-400 [facility] Comment on above: Order Comment: Items in this order include: Culture, Urine Testing Performed By: [facility] [address] [place] [address]. [place] [address] Dr. Donnie Jean, Inspector Mechanical Performed By: #### C 734 #### [facility] [address] [place] [address] Rd [address] [place] [address] RBC (Bld) [#/Vol] 3.60 M CUMM Low 3.80-5.10 [facility] Comment on above: Order Comment: Items in this order include: Culture, Urine Testing Performed By: [facility] [address] [place] [address]. [place] [id number] Dr. Donnie Jean, Inspector Mechanical Performed By: #### C 734 #### [facility]. [address] [place] [address] [address] [place] [address] WBC (Bld) [#/Vol] 28.2 K CUMM Critically high 3.8-10.6 [facility] Comment on above: Order Comment: Items in this order include: Culture, Urine Testing Performed By: [facility] [address] [place] [address]. [place] [id number] Dr. Donnie Jean, Inspector Mechanical Performed By: #### C 734 #### [facility]. [address] [place] [address] [address] [place] [address] Comprehensive Metabolic Pane [facility] 09-27-2020 Albumin [Mass/Vol] 4.4 g/dL Normal 3.5-5.0 [facility] Comment on above: Order Comment: Items in this order include: Comprehensive Metabolic Panel, CBC with differential, TSH w/ reflex to FT4, B12/Folate, , , , Manual Differential if Indicated, Slide Scan, MicroscopeTesting Performed By: [facility] [address] [place] [address]. [place] [address] Dr. Donnie Jean, Inspector Mechanical Performed By: #### C 709 #### [facility]. [address] [place] [address] [address] [place] [address] Alk Phos 68 U/L Normal 23-159 [facility] Comment on above: Order Comment: Items in this order include: Comprehensive Metabolic Panel, CBC with differential, TSH w/ reflex to FT4, B12/Folate, , , , Manual Differential if Indicated, Slide Scan, MicroscopeTesting Performed By: [facility] [address] [place] [address]. [place] [address] Dr. Donnie Jean, Inspector Mechanical Performed By: #### C 709 #### [facility]. [address] [place] [address] [address] [place] [address] ALT [Catalytic activity/Vol] 15 U/L Normal 0-38 [facility] Comment on above: Order Comment: Items in this order include: Comprehensive Metabolic Panel, CBC with differential, TSH w/ reflex to FT4, B12/Folate, , , , Manual Differential if Indicated, Slide Scan, MicroscopeTesting Performed By: [facility] [address] [place] [address]. [place] [address] Dr. Donnie Jean, Inspector Mechanical Performed By: #### C 709 #### [facility]. [address] [place] [address] [address] [place] [address] AST [Catalytic activity/Vol] 21 U/L Normal 11-43 [facility] Comment on above: Order Comment: Items in this order include: Comprehensive Metabolic Panel, CBC with differential, TSH w/ reflex to FT4, B12/Folate, , , , Manual Differential if Indicated, Slide Scan, MicroscopeTesting Performed By: [facility] [address] [place] [address] [address] [address] Donnie Jean, Inspector Mechanical Performed By: #### C 709 #### [facility]. [address] [place] [address] [address] [place] [address] Bilirubin [Mass/Vol] 0.5 mg/dL Normal 0.2-1.3 [facility] Comment on above: Order Comment: Items in this order include: Comprehensive Metabolic Panel, CBC with differential, TSH w/ reflex to FT4, B12/Folate, , , , Manual Differential if Indicated, Slide Scan, MicroscopeTesting Performed By: [facility] [address] [place] [address] [address] [address] Donnie Jean, Inspector Mechanical Performed By: #### C 709 #### [facility]. [address] [place] [address] [address] [place] [place] [address] Calcium [Mass/Vol] 9.7 mg/dL Normal 8.5-10.[address] [facility] Comment on above: Order Comment: Items in this order include: Comprehensive Metabolic Panel, CBC with differential, TSH w/ reflex to FT4, B12/Folate, , , , Manual Differential if Indicated, Slide Scan, MicroscopeTesting Performed By: [facility] [address] [place] [address] Dr. Donnie Jean, Inspector Mechanical Performed By: #### C 709 #### [facility] [address] [place] [address] [address] [place] [address] Chloride [Moles/Vol] 111 mmol/L High 98-107 [facility] Comment on above: Order Comment: Items in this order include: Comprehensive Metabolic Panel, CBC with differential, TSH w/ reflex to FT4, B12/Folate, , , , Manual Differential if Indicated, Slide Scan, MicroscopeTesting Performed By: [facility] [address] [place] [address] Dr. Donnie Jean, Inspector Mechanical Performed By: #### C 709 #### [facility]. [address] [place] [address] [address] [place] [address] CO2 [Moles/Vol] 16.0 mmol/L Low 21.0-32.0 [facility] Comment on above: Order Comment: Items in this order include: Comprehensive Metabolic Panel, CBC with differential, TSH w/ reflex to FT4, B12/Folate, , , , Manual Differential if Indicated, Slide Scan, MicroscopeTesting Performed By: [facility] [address] [place] [address] Dr. Donnie Jean, Inspector Mechanical Performed By: #### C 709 #### [facility]. [address] [place] [address] [address] [place] [address] Creatinine [Mass/Vol] 1.6 mg/dL High 0.1-1.2 [facility] Comment on above: Order Comment: Items in this order include: Comprehensive Metabolic Panel, CBC with differential, TSH w/ reflex to FT4, B12/Folate, , , , Manual Differential if Indicated, Slide Scan, MicroscopeTesting Performed By: [facility] [address] [place] [address] Donnie Jean, Inspector Mechanical Performed By: #### C 709 #### [facility]. [address] [facility] [place] [address] GFR/1.73 sq M.predicted MDRD (S/P/Bld) [Vol rate/Area] 31 mL/min per 1.73 Low >60 [facility] Comment on above: Order Comment: Items in this order include: Comprehensive Metabolic Panel, CBC with differential, TSH w/ reflex to FT4, B12/Folate, , , , Manual Differential if Indicated, Slide Scan, MicroscopeTesting Performed By: [facility] [address] [place] [address] Dr. Donnie Jean, Inspector Mechanical Result Comment: The GFR estimate is not adjusted for race. If the patient's race is -Samoan, the GFR estimate must be multiplied by a factor of 1.21. Performed By: #### C 709 #### [facility]. [address] [place] [address] Suite - [place] [id number] Glucose [Mass/Vol] 112 mg/dL High 74-100 [facility] Comment on above: Order Comment: Items in this order include: Comprehensive Metabolic Panel, CBC with differential, TSH w/ reflex to FT4, B12/Folate, , , , Manual Differential if Indicated, Slide Scan, MicroscopeTesting Performed By: [facility] [address] [place] [address] Dr. Donnie Jean, Inspector Mechanical Performed By: #### C 709 #### [facility]. [address] [place] [address] [place] [address] Potassium [Moles/Vol] 5.4 mmol/L High 3.5-5.3 [facility] Comment on above: Order Comment: Items in this order include: Comprehensive Metabolic Panel, CBC with differential, TSH w/ reflex to FT4, B12/Folate, , , , Manual Differential if Indicated, Slide Scan, MicroscopeTesting Performed By: [facility] [address] [place] [address] Donnie Jean, Inspector Mechanical Performed By: #### C 709 #### [facility] [address] [place] [address] [address] [place] [address] Protein [Mass/Vol] 7.4 g/dL Normal 6.3-8.4 [facility] Comment on above: Order Comment: Items in this order include: Comprehensive Metabolic Panel, CBC with differential, TSH w/ reflex to FT4, B12/Folate, , , , Manual Differential if Indicated, Slide Scan, MicroscopeTesting Performed By: [facility] [address] [place] [address]. [place] [address] Dr. Donnie Jean, Inspector Mechanical Performed By: #### C 709 #### [facility]. [address] [place] [address] [place] [address] Sodium [Moles/Vol] 140 mmol/L Normal 135-145 [facility] Comment on above: Order Comment: Items in this order include: Comprehensive Metabolic Panel, CBC with differential, TSH w/ reflex to FT4, B12/Folate, , , , Manual Differential if Indicated, Slide Scan, MicroscopeTesting Performed By: [facility] [address] [place] [address] Donnie Jean, Inspector Mechanical Performed By: #### Jany 709 #### [facility]. [address] [place] [address] [place] [address] Urea nitrogen [Mass/Vol] 40 mg/dL High 6-22 [facility] Comment on above: Order Comment: Items in this order include: Comprehensive Metabolic Panel, CBC with differential, TSH w/ reflex to FT4, B12/Folate, , , , Manual Differential if Indicated, Slide Scan, MicroscopeTesting Performed By: [facility] [address] [place] [address] Donnie Jean, Inspector Mechanical Performed By: #### C 709 #### [facility]. [address] [place] [address] [address] [place] [address] Culture, Urineon 09-27-2020 RPT Microbiology results Normal [facility] Comment on above: Order Comment: Items in this order include: Culture, Urine Testing Performed By: [facility] [address] [place] [address], [place] [address] Dr. Donnie Jean, Inspector Mechanical Result Comment: Kaylee l Result: No growth at 24 hours. Performed By: #### C 734 #### [facility] [address] [place] [address] Rd [address] [place] [address] Manual Differential if Indic atedon 09-27-2020 Anisocytosis Ql (Bld) SLIGHT Normal [facility] Comment on above: Order Comment: Items in this order include: Culture, Urine Testing Performed By: [facility] [address] [place] [address]. [place] [address] Dr. Donnie Jean, Inspector Mechanical Performed By: #### C 734 #### [facility] [address] [place] [address] [place] [address] Luna Cells SLIGHT Normal [facility] Comment on above: Order Comment: Items in this order include: Culture, Urine Testing Performed By: [facility] [address] [place] [address]. [place] [address] Dr. Donnie Jean, Inspector Mechanical Performed By: #### C 734 #### [facility] [address] [place] [address] [place] [address] Lymphocytes 2 % Low 20-51 [facility] Comment on above: Order Comment: Items in this order include: Culture, Urine Testing Performed By: [facility] [address] [place] [address]. [place] [address] Dr. Donnie Jean, Inspector Mechanical Performed By: #### C 734 #### [facility] [address] [place] [address] [address] [place] [address] Macrocytes Ql (Bld) SLIGHT Normal [facility] Comment on above: Order Comment: Items in this order include: Culture, Urine Testing Performed By: [facility] [address] [place] [address]. [place] [address] Dr. Donnie Jean, Inspector Mechanical Performed By: #### C 734 #### [facility] [address] [place] [address] [address] [place] [address] Metamyelocytes 1 % Normal <2 [facility] Comment on above: Order Comment: Items in this order include: Culture, Urine Testing Performed By: [facility] [address] [place] [address] Dr. Donnie Jean, Inspector Mechanical Performed By: #### C 734 #### [facility] [address] [place] [address] Monocytes 2 % Normal 2-9 [facility] Comment on above: Order Comment: Items in this order include: Culture, Urine Testing Performed By: [facility] [address] [facility] [address] [place] [address] Dr. Donnie Jean, Inspector Mechanical Performed By: #### C 734 #### [facility] [address] [place] [address] Neutrophils 95 % High 42-75 [facility] Comment on above: Order Comment: Items in this order include: Culture, Urine Testing Performed By: [facility] [address] [place] [address] Dr. Donnie Jean, Inspector Mechanical Performed By: #### C 734 #### [facility] [address] [place] [address] Ovalocytes SLIGHT Normal [facility] Comment on above: Order Comment: Items in this order include: Culture, Urine Testing Performed By: [facility] [address] [place] [address] Dr. Donnie Jean, Inspector Mechanical Performed By: #### C 734 #### [facility] [address] [place] [address] Poikilocytosis MODERATE Normal [facility] Comment on above: Order Comment: Items in this order include: Culture, Urine Testing Performed By: [facility] [address] [place] [address] Dr. Donnie Jean, Inspector Mechanical Performed By: #### C 734 #### [facility] [address] [place] [address] Polychromasia SLIGHT Normal [facility] Comment on above: Order Comment: Items in this order include: Culture, Urine Testing Performed By: [facility] [address] [place] [address]. [place] [address] Dr. Donnie Jean, Inspector Mechanical Performed By: #### C 734 #### [facility] [address] [place] [address] [address] [place] [address] Target Cells SLIGHT Normal [facility] Comment on above: Order Comment: Items in this order include: Culture, Urine Testing Performed By: [facility] [address] [place] [address]. [place] [address] Dr. Donnie Jean, Inspector Mechanical Performed By: #### C 734 #### [facility] [address] [place] [address] [address] [place] [address] Slide Scan, Microscopeon Platelets (Bld) [#/Vol] RESULTS MAY BE INACCURATE DUE TO PLATELET CLUMPING; SUGGEST REDRAW PLT COUNT IN BLUE-TOP (CITRATED TUBE). ALL OTHER CBC PARAMETERS ARE UNAFFECTED BY THIS IN VITRO PHENOMENON. Normal [facility] Comment on above: Order Comment: Items in this order include: Culture, Urine Testing Performed By: [facility] [address] [place] [address]. [place] [address] Dr. Donnie Jean, Inspector Mechanical Performed By: #### C 734 #### [facility] [address] [place] [address] [address] [place] [address] TSH w/ reflex to FT4on 09-27 TSH Qn 4.30 MIU/mL Normal 0.50-6.00 [facility] Comment on above: Order Comment: Items in this order include: Culture, Urine Testing Performed By: [facility] [address] [place] [address]. [place] [address] Dr. Donnie Jean, Inspector Mechanical Performed By: #### C 734 #### [facility] [address] [place] [address] [place] [address] CBC with differentialon 08-0 4-2020 Erythrocyte distribution width (RBC) [Ratio] 15.4 % Normal 11.5-15.5 [facility] Comment on above: Order Comment: Items in this order include: Comprehensive Metabolic Panel, Lipid Panel, Uric Acid , Vit D 25 [place] (Total), CBC with differential, HgbA1C, , , , Slide Scan if Indicated, Manual Differential if IndicatedTesting Performed By: [facility] [address] [place] [address]. [place] [address] Dr. Donnie Jean, Inspector Mechanical Performed By: #### C 709 #### [facility]. [address] [place] [address] [place] [address] Hematocrit (Bld) [Volume fraction] 37.9 % Normal 37.0-47.0 [facility] Comment on above: Order Comment: Items in this order include: Comprehensive Metabolic Panel, Lipid Panel, Uric Acid , Vit D 25 [place] (Total), CBC with differential, HgbA1C, , , , Slide Scan if Indicated, Manual Differential if IndicatedTesting Performed By: [facility] [address] [place] [address] Donnie Jean, Inspector Mechanical Performed By: #### C 709 #### [facility]. [address] [place] [address] [place] [address] Hemoglobin (Bld) [Mass/Vol] 12.1 g/dL Normal 11.5-15.5 [facility] Comment on above: Order Comment: Items in this order include: Comprehensive Metabolic Panel, Lipid Panel, Uric Acid , Vit D 25 [place] (Total), CBC with differential, HgbA1C, , , , Slide Scan if Indicated, Manual Differential if IndicatedTesting Performed By: [facility] [address] [place] [address] [address] [address] Donnie Jean, Inspector Mechanical Performed By: #### C 709 #### [facility]. [address] [place] [address] [place] [address] MCH (RBC) [Entitic mass] 35.7 pg High 27.0-31.0 [facility] Comment on above: Order Comment: Items in this order include: Comprehensive Metabolic Panel, Lipid Panel, Uric Acid , Vit D 25 [place] (Total), CBC with differential, HgbA1C, , , , Slide Scan if Indicated, Manual Differential if IndicatedTesting Performed By: [facility] [address] [place] [address] Dr. Donnie Jean, Inspector Mechanical Performed By: #### C 709 #### [facility]. [address] [place] [address] [place] [address] MCHC (RBC) [Mass/Vol] 31.9 g/dL Low 32.0-36.0 [facility] Comment on above: Order Comment: Items in this order include: Comprehensive Metabolic Panel, Lipid Panel, Uric Acid , Vit D 25 [place] (Total), CBC with differential, HgbA1C, , , , Slide Scan if Indicated, Manual Differential if IndicatedTesting Performed By: [facility] [address] [place] [address] Dr. Donnie Jean, Inspector Mechanical Performed By: #### C 709 #### [facility]. [address] [place] [address] [place] [address] MCV (RBC) [Entitic vol] 111.8 fL High 78.0-100.0 [facility] Comment on above: Order Comment: Items in this order include: Comprehensive Metabolic Panel, Lipid Panel, Uric Acid , Vit D 25 [place] (Total), CBC with differential, HgbA1C, , , , Slide Scan if Indicated, Manual Differential if IndicatedTesting Performed By: [facility] [address] [place] [address] [address] [address] Donnie Jean, Inspector Mechanical Performed By: #### C 709 #### [facility]. [address] [place] [address] [place] [address] Platelet mean volume (Bld) [Entitic vol] 10.5 fL Normal 8.9-12.6 [facility] Comment on above: Order Comment: Items in this order include: Comprehensive Metabolic Panel, Lipid Panel, Uric Acid , Vit D 25 [place] (Total), CBC with differential, HgbA1C, , , , Slide Scan if Indicated, Manual Differential if IndicatedTesting Performed By: [facility] [address] [place] [address]. [place] [address] Dr. Donnie Jean, Inspector Mechanical Performed By: #### C 709 #### [facility]. [address] [place] [address] Rd [address] [place] [address] Platelets (Bld) [#/Vol] 356 K CUMM Normal 130-400 [facility] Comment on above: Order Comment: Items in this order include: Comprehensive Metabolic Panel, Lipid Panel, Uric Acid , Vit D 25 [place] (Total), CBC with differential, HgbA1C, , , , Slide Scan if Indicated, Manual Differential if IndicatedTesting Performed By: [facility] [address] [place] [address]. [place] [address] Dr. Donnie Jean, Inspector Mechanical Performed By: #### C 709 #### [facility]. [address] [place] [address] [address] [place] [address] RBC (Bld) [#/Vol] 3.39 M CUMM Low 3.80-5.10 [facility] Comment on above: Order Comment: Items in this order include: Comprehensive Metabolic Panel, Lipid Panel, Uric Acid , Vit D 25 [place] (Total), CBC with differential, HgbA1C, , , , Slide Scan if Indicated, Manual Differential if IndicatedTesting Performed By: [facility] [address] [place] [address]. [place] [address] Dr. Donnie Jean, Inspector Mechanical Performed By: #### C 709 #### [facility]. [address] [place] [address] Rd [address] [place] [address] WBC (Bld) [#/Vol] 18.3 K CUMM High 3.8-10.6 [facility] Comment on above: Order Comment: Items in this order include: Comprehensive Metabolic Panel, Lipid Panel, Uric Acid , Vit D 25 [place] (Total), CBC with differential, HgbA1C, , , , Slide Scan if Indicated, Manual Differential if IndicatedTesting Performed By: [facility] [address] [place] [address]. [place] [address] Dr. Donnie Jean, Inspector Mechanical Performed By: #### C 709 #### [facility]. [address] [place] [address] [place] [address] Comprehensive Metabolic Pane donnie 06-21-2020 Albumin [Mass/Vol] 4.4 g/dL Normal 3.5-5.0 [facility] Comment on above: Order Comment: Items in this order include: Comprehensive Metabolic Panel, Lipid Panel, Uric Acid , Vit D 25 [place] (Total), CBC with differential, HgbA1C, , , , Slide Scan if Indicated, Manual Differential if IndicatedTesting Performed By: [facility] [address] [place] [address]. [place] [id number] Dr. Donnie Jean, Lab DirectorItems in this order include: Comprehensive Metabolic Panel, Lipid Panel, Uric Acid , Vit D 25 [place] (Total), CBC with differential, HgbA1C, , , , Manual Differential if Indicated Performed By: #### C 709 #### [facility] [address] [place] [address] [place] [address] Alk Phos 66 U/L Normal 23-159 [facility] Comment on above: Order Comment: Items in this order include: Comprehensive Metabolic Panel, Lipid Panel, Uric Acid , Vit D 25 [place] (Total), CBC with differential, HgbA1C, , , , Slide Scan if Indicated, Manual Differential if IndicatedTesting Performed By: [facility] [address] [place] [address]. [place] [address] Dr. Donnie Jean, Lab DirectorItems in this order include: Comprehensive Metabolic Panel, Lipid Panel, Uric Acid , Vit D 25 [place] (Total), CBC with differential, HgbA1C, , , , Manual Differential if Indicated Performed By: #### C 709 #### [facility] [address] [place] [address] [address] [place] [address] ALT [Catalytic activity/Vol] 9 U/L Normal 0-38 [facility] Comment on above: Order Comment: Items in this order include: Comprehensive Metabolic Panel, Lipid Panel, Uric Acid , Vit D 25 [place] (Total), CBC with differential, HgbA1C, , , , Slide Scan if Indicated, Manual Differential if IndicatedTesting Performed By: [facility] [address] [place] [address]. [place] [address] Dr. Donnie Jean, Lab DirectorItems in this order include: Comprehensive Metabolic Panel, Lipid Panel, Uric Acid , Vit D 25 [place] (Total), CBC with differential, HgbA1C, , , , Manual Differential if Indicated Performed By: #### C 709 #### [facility] [address] [place] [address] [place] [address] AST [Catalytic activity/Vol] 17 U/L Normal 11-43 [facility] Comment on above: Order Comment: Items in this order include: Comprehensive Metabolic Panel, Lipid Panel, Uric Acid , Vit D 25 [place] (Total), CBC with differential, HgbA1C, , , , Slide Scan if Indicated, Manual Differential if IndicatedTesting Performed By: [facility] [address] [place] [address]. [place] [address] Dr. Donnie Jean, Lab DirectorItems in this order include: Comprehensive Metabolic Panel, Lipid Panel, Uric Acid , Vit D 25 [place] (Total), CBC with differential, HgbA1C, , , , Manual Differential if Indicated Performed By: #### C 709 #### [facility] [address] [place] [address] [place] [address] Bilirubin [Mass/Vol] 0.3 mg/dL Normal 0.2-1.3 [facility] Comment on above: Order Comment: Items in this order include: Comprehensive Metabolic Panel, Lipid Panel, Uric Acid , Vit D 25 [place] (Total), CBC with differential, HgbA1C, , , , Slide Scan if Indicated, Manual Differential if IndicatedTesting Performed By: [facility] [address] [place] [address]. [place] [address] Dr. oDnnie Jean, Lab DirectorItems in this order include: Comprehensive Metabolic Panel, Lipid Panel, Uric Acid , Vit D 25 [place] (Total), CBC with differential, HgbA1C, , , , Manual Differential if Indicated Performed By: #### C 709 #### [facility] [address] [place] [address] [address] [place] [address] Calcium [Mass/Vol] 10.1 mg/dL Normal 8.5-10.5 [facility] Comment on above: Order Comment: Items in this order include: Comprehensive Metabolic Panel, Lipid Panel, Uric Acid , Vit D 25 [place] (Total), CBC with differential, HgbA1C, , , , Slide Scan if Indicated, Manual Differential if IndicatedTesting Performed By: [facility] [address] [place] [address]. [place] [address] Dr. Donnie Jean, Lab DirectorItems in this order include: Comprehensive Metabolic Panel, Lipid Panel, Uric Acid , Vit D 25 [place] (Total), CBC with differential, HgbA1C, , , , Manual Differential if Indicated Performed By: #### C 709 #### [facility] [address] [place] [address] [place] [address] Chloride [Moles/Vol] 106 mmol/L Normal 98-107 [facility] Comment on above: Order Comment: Items in this order include: Comprehensive Metabolic Panel, Lipid Panel, Uric Acid , Vit D 25 [place] (Total), CBC with differential, HgbA1C, , , , Slide Scan if Indicated, Manual Differential if IndicatedTesting Performed By: [facility] [address] [place] [address] Donnie Jean, Lab DirectorItems in this order include: Comprehensive Metabolic Panel, Lipid Panel, Uric Acid , Vit D 25 [place] (Total), CBC with differential, HgbA1C, , , , Manual Differential if Indicated Performed By: #### C 709 #### [facility] [address] [place] [address] [place] [address] CO2 [Moles/Vol] 17.0 mmol/L Low 21.0-32.0 [facility] Comment on above: Order Comment: Items in this order include: Comprehensive Metabolic Panel, Lipid Panel, Uric Acid , Vit D 25 [place] (Total), CBC with differential, HgbA1C, , , , Slide Scan if Indicated, Manual Differential if IndicatedTesting Performed By: [facility] [address] [place] [address] Donnie Jean, Lab DirectorItems in this order include: Comprehensive Metabolic Panel, Lipid Panel, Uric Acid , Vit D 25 [place] (Total), CBC with differential, HgbA1C, , , , Manual Differential if Indicated Performed By: #### C 709 #### [facility]. [address] [place] [address] [place] [address] Creatinine [Mass/Vol] 1.5 mg/dL High 0.1-1.2 [facility] Comment on above: Order Comment: Items in this order include: Comprehensive Metabolic Panel, Lipid Panel, Uric Acid , Vit D 25 [place] (Total), CBC with differential, HgbA1C, , , , Slide Scan if Indicated, Manual Differential if IndicatedTesting Performed By: [facility] [address] [place] [id number] Donnie Jean, Lab DirectorItems in this order include: Comprehensive Metabolic Panel, Lipid Panel, Uric Acid , Vit D 25 [place] (Total), CBC with differential, HgbA1C, , , , Manual Differential if Indicated Performed By: #### C 709 #### [address] [place] [address] GFR/1.73 sq M.predicted MDRD (S/P/Bld) [Vol rate/Area] 33 mL/min per 1.73 Low >60 [facility] Comment on above: Order Comment: Items in this order include: Comprehensive Metabolic Panel, Lipid Panel, Uric Acid , Vit D 25 [place] (Total), CBC with differential, HgbA1C, , , , Slide Scan if Indicated, Manual Differential if IndicatedTesting Performed By: [facility] [address] [place] [address] Donnie Jean, Lab DirectorItems in this order include: Comprehensive Metabolic Panel, Lipid Panel, Uric Acid , Vit D 25 [place] (Total), CBC with differential, HgbA1C, , , , Manual Differential if Indicated Result Comment: The GFR estimate is not adjusted for race. If the patient's race is -[place]amo[place], the GFR estimate must be multiplied by a factor of 1.21. Performed By: #### C 709 #### [facility]. [address] [place] [address] [address] [place] [address] Glucose [Mass/Vol] 108 mg/dL High 74-100 [facility] Comment on above: Order Comment: Items in this order include: Comprehensive Metabolic Panel, Lipid Panel, Uric Acid , Vit D 25 [place] (Total), CBC with differential, HgbA1C, , , , Slide Scan if Indicated, Manual Differential if IndicatedTesting Performed By: [facility] [address] [place] [address] Donnie Jean, Lab DirectorItems in this order include: Comprehensive Metabolic Panel, Lipid Panel, Uric Acid , Vit D 25 [place] (Total), CBC with differential, HgbA1C, , , , Manual Differential if Indicated Performed By: #### C 709 #### [facility]. [address] [place] [address] [place] [address] Potassium [Moles/Vol] 4.7 mmol/L Normal 3.5-5.3 [facility] Comment on above: Order Comment: Items in this order include: Comprehensive Metabolic Panel, Lipid Panel, Uric Acid , Vit D 25 [place] (Total), CBC with differential, HgbA1C, , , , Slide Scan if Indicated, Manual Differential if IndicatedTesting Performed By: [facility] [address] [place] [address] Donnie Jean, Lab DirectorItems in this order include: Comprehensive Metabolic Panel, Lipid Panel, Uric Acid , Vit D 25 [place] (Total), CBC with differential, HgbA1C, , , , Manual Differential if Indicated Performed By: #### C 709 #### [facility]. [address] [place] [address] [address] [place] [address] Protein [Mass/Vol] 7.4 g/dL Normal 6.3-8.4 [facility] Comment on above: Order Comment: Items in this order include: Comprehensive Metabolic Panel, Lipid Panel, Uric Acid , Vit D 25 [place] (Total), CBC with differential, HgbA1C, , , , Slide Scan if Indicated, Manual Differential if IndicatedTesting Performed By: [facility] [address] [place] [address] Donnie Jean, Lab DirectorItems in this order include: Comprehensive Metabolic Panel, Lipid Panel, Uric Acid , Vit D 25 [place] (Total), CBC with differential, HgbA1C, , , , Manual Differential if Indicated Performed By: #### C 709 #### [facility]. [address] [place] [address] [address] [place] [address] Sodium [Moles/Vol] 139 mmol/L Normal 135-145 [facility] Comment on above: Order Comment: Items in this order include: Comprehensive Metabolic Panel, Lipid Panel, Uric Acid , Vit D 25 [place] (Total), CBC with differential, HgbA1C, , , , Slide Scan if Indicated, Manual Differential if IndicatedTesting Performed By: [facility] [address] [place] [address]. [place] [address] Dr. Donnie Jean, Lab DirectorItems in this order include: Comprehensive Metabolic Panel, Lipid Panel, Uric Acid , Vit D 25 [place] (Total), CBC with differential, HgbA1C, , , , Manual Differential if Indicated Performed By: #### C 709 #### [facility]. [address] [place] [address] [place] [address] Urea nitrogen [Mass/Vol] 36 mg/dL High 6-22 [facility] Comment on above: Order Comment: Items in this order include: Comprehensive Metabolic Panel, Lipid Panel, Uric Acid , Vit D 25 [place] (Total), CBC with differential, HgbA1C, , , , Slide Scan if Indicated, Manual Differential if IndicatedTesting Performed By: [facility] [address] [place] [address]. [place] [address] Dr. Donnie Jean, Lab DirectorItems in this order include: Comprehensive Metabolic Panel, Lipid Panel, Uric Acid , Vit D 25 [place] (Total), CBC with differential, HgbA1C, , , , Manual Differential if Indicated Performed By: #### C 709 #### [facility]. [address] [place] [address] [address] [place] [address] [id number] 06-21-2020 HbA1c (Bld) [Mass fraction] 6.3 % High <5.7 [facility] Comment on above: Order Comment: Items in this order include: Comprehensive Metabolic Panel, Lipid Panel, Uric Acid , Vit D 25 [place] (Total), CBC with differential, HgbA1C, , , , Slide Scan if Indicated, Manual Differential if IndicatedTesting Performed By: [facility] [address] [place] [address]. [place] [address] Dr. Donnie Jean, Lab DirectorItems in this order include: Comprehensive Metabolic Panel, Lipid Panel, Uric Acid , Vit D 25 [place] (Total), CBC with differential, HgbA1C, , , , Manual Differential if Indicated Result Comment: Refe rence Interval: Normal: below 5.7%. Prediabetes: 5.7% to 6.4%. Diabetes: 6.5% or above. Performed By: #### C 709 #### [facility] [address] [place] [address] [place] [address] Lipid Panelon 06-21-2020 Cholesterol [Mass/Vol] 124 mg/dL Normal <200 [facility] Comment on above: Performed By: #### C 709 #### [facility] [address] [place] [address] [place] [address] Cholesterol in HDL [Mass/Vol] 34 mg/dL Low >50 [facility] Comment on above: Performed By: #### C 709 #### [facility] [address] [place] [address] [address] [place] [address] Cholesterol in LDL [Mass/Vol] 49 mg/dL Normal <130 [facility] Comment on above: Performed By: #### C 709 #### [facility] [address] [place] [address] [address] [place] [address] Cholesterol.total/C holesterol in HDL [Mass ratio] 3.6 {ratio} Normal <4.0 [facility] Comment on above: Performed By: #### C 709 #### [facility] [address] [place] [address] [address] [place] [address] Non-HDL Chol 90 Normal LDL Goal + 30 [facility] Comment on above: Result Comment: LDL and Non-HDL goal dependent upon individual risk Performed By: #### C 709 #### [facility] [address] [place] [address] [address] [place] [address] Triglyceride [Mass/Vol] 206 mg/dL High <150 [facility] Comment on above: Performed By: #### C 709 #### [facility] [address] [place] [address] [address] [place] [address] VLDL-Calc 41 mg/dl High <30 [facility] Comment on above: Performed By: #### C 709 #### [facility] [address] [place] [address] [address] [place] [address] Manual Differential if Indic atedon 06-21-2020 Anisocytosis Ql (Bld) MODERATE Normal [facility] Comment on above: Order Comment: Items in this order include: Comprehensive Metabolic Panel, Lipid Panel, Uric Acid , Vit D 25 [place] (Total), CBC with differential, HgbA1C, , , , Slide Scan if Indicated, Manual Differential if IndicatedTesting Performed By: [facility] [address] [place] [address] Donnie Jean, Lab DirectorItems in this order include: Comprehensive Metabolic Panel, Lipid Panel, Uric Acid , Vit D 25 [place] (Total), CBC with differential, HgbA1C, , , , Manual Differential if IndicatedReceived comment: User comments: Slide comments: Performed By: #### C 709 #### [facility] [address] [place] [address] [address] [place] [address] Basophils 1 % Normal [facility] Comment on above: Order Comment: Items in this order include: Comprehensive Metabolic Panel, Lipid Panel, Uric Acid , Vit D 25 [place] (Total), CBC with differential, HgbA1C, , , , Slide Scan if Indicated, Manual Differential if IndicatedTesting Performed By: [facility] [address] [place] [address] Donnie Jean, Lab DirectorItems in this order include: Comprehensive Metabolic Panel, Lipid Panel, Uric Acid , Vit D 25 [place] (Total), CBC with differential, HgbA1C, , , , Manual Differential if IndicatedReceived comment: User comments: Slide comments: Performed By: #### C 709 #### [facility] [address] [place] [address] [address] [place] [address] Lymphocytes 7 % Low 20-51 [facility] Comment on above: Order Comment: Items in this order include: Comprehensive Metabolic Panel, Lipid Panel, Uric Acid , Vit D 25 [place] (Total), CBC with differential, HgbA1C, , , , Slide Scan if Indicated, Manual Differential if IndicatedTesting Performed By: [facility] [address] [place] [address]. [place] [address] Dr. Donnie Jean, Lab DirectorItems in this order include: Comprehensive Metabolic Panel, Lipid Panel, Uric Acid , Vit D 25 [place] (Total), CBC with differential, HgbA1C, , , , Manual Differential if IndicatedReceived comment: User comments: Slide comments: Performed By: #### C 709 #### [facility] [address] [place] [address] [address] [place] [address] Macrocytes Ql (Bld) SLIGHT Normal [facility] Comment on above: Order Comment: Items in this order include: Comprehensive Metabolic Panel, Lipid Panel, Uric Acid , Vit D 25 [place] (Total), CBC with differential, HgbA1C, , , , Slide Scan if Indicated, Manual Differential if IndicatedTesting Performed By: [facility] [address] [place] [address]. [place] [address] Dr. Donnie Jean, Lab DirectorItems in this order include: Comprehensive Metabolic Panel, Lipid Panel, Uric Acid , Vit D 25 [place] (Total), CBC with differential, HgbA1C, , , , Manual Differential if IndicatedReceived comment: User comments: Slide comments: Performed By: #### C 709 #### [facility] [address] [place] [address] [address] [place] [address] Metamyelocytes 3 % High <2 [facility] Comment on above: Order Comment: Items in this order include: Comprehensive Metabolic Panel, Lipid Panel, Uric Acid , Vit D 25 [place] (Total), CBC with differential, HgbA1C, , , , Slide Scan if Indicated, Manual Differential if IndicatedTesting Performed By: [facility] [address] [place] [address]. [place] [address] Dr. Donnei Jean, Lab DirectorItems in this order include: Comprehensive Metabolic Panel, Lipid Panel, Uric Acid , Vit D 25 [place] (Total), CBC with differential, HgbA1C, , , , Manual Differential if IndicatedReceived comment: User comments: Slide comments: Performed By: #### C 709 #### [facility] [address] [place] [address] [address] [place] [address] Microcytes SLIGHT Normal SLIGHT [facility] Comment on above: Order Comment: Items in this order include: Comprehensive Metabolic Panel, Lipid Panel, Uric Acid , Vit D 25 [place] (Total), CBC with differential, HgbA1C, , , , Slide Scan if Indicated, Manual Differential if IndicatedTesting Performed By: [facility] [address] [place] [address]. [place] [address] Dr. Donnie Jean, Lab DirectorItems in this order include: Comprehensive Metabolic Panel, Lipid Panel, Uric Acid , Vit D 25 [place] (Total), CBC with differential, HgbA1C, , , , Manual Differential if IndicatedReceived comment: User comments: Slide comments: Performed By: #### C 709 #### [facility] [address] [place] [address] [address] - [place] [id number] Neutrophils 89 % High 42-75 [facility] Comment on above: Order Comment: Items in this order include: Comprehensive Metabolic Panel, Lipid Panel, Uric Acid , Vit D 25 [place] (Total), CBC with differential, HgbA1C, , , , Slide Scan if Indicated, Manual Differential if IndicatedTesting Performed By: [facility] [address] [place] [address]. [place] [address] Dr. Donnie Jean, Lab DirectorItems in this order include: Comprehensive Metabolic Panel, Lipid Panel, Uric Acid , Vit D 25 [place] (Total), CBC with differential, HgbA1C, , , , Manual Differential if IndicatedReceived comment: User comments: Slide comments: Performed By: #### C 709 #### [facility] [address] [place] [address] [place] [address] Polychromasia SLIGHT Normal [facility] Comment on above: Order Comment: Items in this order include: Comprehensive Metabolic Panel, Lipid Panel, Uric Acid , Vit D 25 [place] (Total), CBC with differential, HgbA1C, , , , Slide Scan if Indicated, Manual Differential if IndicatedTesting Performed By: [facility] [address] [place] [address]. [place] [address] Dr. Donnie Jean, Lab DirectorItems in this order include: Comprehensive Metabolic Panel, Lipid Panel, Uric Acid , Vit D 25 [place] (Total), CBC with differential, HgbA1C, , , , Manual Differential if IndicatedReceived comment: User comments: Slide comments: Performed By: #### C 709 #### [facility] [address] [place] [address] [place] [address] Uric Acidon 06-21-2020 Urate [Mass/Vol] 9.0 mg/dL High 2.5-6.2 [facility] Comment on above: Performed By: #### C 709 #### [facility] [address] [place] [address] [place] [address] Vit D 25 [place] (Total)on 2019 Vit D 25 [place] (Total) 36.9 ng/ml Normal 31.0-100.0 [facility] Comment on above: Order Comment: Items in this order include: Comprehensive Metabolic Panel, Lipid Panel, Uric Acid , Vit D 25 [place] (Total), CBC with differential, HgbA1C, , , , Slide Scan if Indicated, Manual Differential if IndicatedTesting Performed By: [facility] [address] [place] [address]. [place] [address] Dr. Donnie Jean, Lab DirectorItems in this order include: Comprehensive Metabolic Panel, Lipid Panel, Uric Acid , Vit D 25 [place] (Total), CBC with differential, HgbA1C, , , , Manual Differential if Indicated Result Comment: Defi ciency <10 ng/ml Insufficiency 10-30 ng/ml Sufficiency 31-100 ng/ml Toxicity >100 ng/ml Performed By: #### C 709 #### [facility] [address] [place] [address] [place] [address] SHADY Mammo Digital Diag RT w t [...] by: OSKAR 02/03/2020 14:27 Technologist: PRINCE [facility] Mammo Digital Screen bila t w [...] will be immediately mailed to the patient. [facility] thanks you for the opportunity to care for your patient. Workstation ID: [id number] - [id number] FINAL REPORT Dictated By: Jazlyn Stuart MD 02/01/2020 14:28 Assigned Physician: Jazlyn Stuart MD Reviewed and Electronically Signed By: Jazlyn Stuart MD 02/01/2020 14:29 Transcribed by: OSKAR 02/01/2020 14:28 Technologist: JEROME [facility] CBC with differentialon Erythrocyte distribution width (RBC) [Ratio] 14.7 % Normal 11.5-15.5 [facility] Comment on above: Order Comment: Items in this order include: Cholesterol, Comprehensive Metabolic Panel, Direct LDL , HDL, Uric Acid , CBC with differential, HgbA1C, , , Slide Scan if Indicated, Manual Differential if Indicated Testing Performed By: [facility] [address] [place], [place] [address] [place] [address] Dr. Donnie Jean, Inspector Mechanical Items in this order include: Cholesterol, Comprehensive Metabolic Panel, Direct LDL , HDL, Uric Acid , CBC with differential, HgbA1C, , , Slide Scan if Indicated, Manual Differential if Indicated Testing Performed By: [facility] [address] [place], [place] [address] [place] [address] Dr. Donnie Jean, Inspector Mechanical Items in this order include: Cholesterol, Comprehensive Metabolic Panel, Direct LDL , HDL, Uric Acid , CBC with differential, HgbA1C, , , Slide Scan if Indicated, Manual Differential if Indicated Testing Performed By: [facility] [address] [place], [place] [address] [place] [address] Dr. Donnie Jean, Inspector Mechanical Performed By: #### C 120, C141, C116, C406, C4521, C118, C47, C4523, C215 #### [facility] [address] [place] [address] [address] [place] [address] Hematocrit (Bld) [Volume fraction] 40.6 % Normal 37.0-47.0 [facility] Comment on above: Order Comment: Items in this order include: Cholesterol, Comprehensive Metabolic Panel, Direct LDL , HDL, Uric Acid , CBC with differential, HgbA1C, , , Slide Scan if Indicated, Manual Differential if Indicated Testing Performed By: [facility] [address] [place], [place] [address] [place] [address] Dr. Donnie Jean, Inspector Mechanical Items in this order include: Cholesterol, Comprehensive Metabolic Panel, Direct LDL , HDL, Uric Acid , CBC with differential, HgbA1C, , , Slide Scan if Indicated, Manual Differential if Indicated Testing Performed By: [facility] [address] [place] [address] Dr. Donnie Jean, Inspector Mechanical Items in this order include: Cholesterol, Comprehensive Metabolic Panel, Direct LDL , HDL, Uric Acid , CBC with differential, HgbA1C, , , Slide Scan if Indicated, Manual Differential if Indicated Testing Performed By: [facility] [address] [place] [address] Dr. Donnie Jean, Inspector Mechanical Performed By: #### C 120, C141, C116, C406, C4521, C118, C47, C4523, C215 #### [facility]. [address] [place] [address] [address] [place] [address] Hemoglobin (Bld) [Mass/Vol] 12.9 g/dL Normal 11.5-15.5 [facility] Comment on above: Order Comment: Items in this order include: Cholesterol, Comprehensive Metabolic Panel, Direct LDL , HDL, Uric Acid , CBC with differential, HgbA1C, , , Slide Scan if Indicated, Manual Differential if Indicated Testing Performed By: [facility] [address] [place] [address] Dr. Donnie Jean, Inspector Mechanical Items in this order include: Cholesterol, Comprehensive Metabolic Panel, Direct LDL , HDL, Uric Acid , CBC with differential, HgbA1C, , , Slide Scan if Indicated, Manual Differential if Indicated Testing Performed By: [facility] [address] [place] [address] Dr. Donnie Jean, Inspector Mechanical Items in this order include: Cholesterol, Comprehensive Metabolic Panel, Direct LDL , HDL, Uric Acid , CBC with differential, HgbA1C, , , Slide Scan if Indicated, Manual Differential if Indicated Testing Performed By: [facility] [address] [place] [address] Dr. Donnie Jean, Inspector Mechanical Performed By: #### C 120, C141, C116, C406, C4521, C118, C47, C4523, C215 #### [facility] [address] [facility] [address] [place] [address] MCH (RBC) [Entitic mass] 35.1 pg High 27.0-31.0 [facility] Comment on above: Order Comment: Items in this order include: Cholesterol, Comprehensive Metabolic Panel, Direct LDL , HDL, Uric Acid , CBC with differential, HgbA1C, , , Slide Scan if Indicated, Manual Differential if Indicated Testing Performed By: [facility] [address] [place] [address]. [place] [id number] Dr. Donnie Jean, Inspector Mechanical Items in this order include: Cholesterol, Comprehensive Metabolic Panel, Direct LDL , HDL, Uric Acid , CBC with differential, HgbA1C, , , Slide Scan if Indicated, Manual Differential if Indicated Testing Performed By: [facility] [address] [place] [address]. [place] [address] Dr. Donnie Jean, Inspector Mechanical Items in this order include: Cholesterol, Comprehensive Metabolic Panel, Direct LDL , HDL, Uric Acid , CBC with differential, HgbA1C, , , Slide Scan if Indicated, Manual Differential if Indicated Testing Performed By: [facility] [address] [place] [address]. [place] [id number] Dr. Donnie Jean, Inspector Mechanical Performed By: #### C 120, C141, C116, C406, C4521, C118, C47, C4523, C215 #### [facility] [address] [place] [address] [address] [place] [address] MCHC (RBC) [Mass/Vol] 31.8 g/dL Low 32.0-36.0 [facility] Comment on above: Order Comment: Items in this order include: Cholesterol, Comprehensive Metabolic Panel, Direct LDL , HDL, Uric Acid , CBC with differential, HgbA1C, , , Slide Scan if Indicated, Manual Differential if Indicated Testing Performed By: [facility] [address] [place] [address]. [place] [id number] Dr. Donnie Jean, Inspector Mechanical Items in this order include: Cholesterol, Comprehensive Metabolic Panel, Direct LDL , HDL, Uric Acid , CBC with differential, HgbA1C, , , Slide Scan if Indicated, Manual Differential if Indicated Testing Performed By: [facility] [address] [place] [address] Dr. Donnie Jean, Inspector Mechanical Items in this order include: Cholesterol, Comprehensive Metabolic Panel, Direct LDL , HDL, Uric Acid , CBC with differential, HgbA1C, , , Slide Scan if Indicated, Manual Differential if Indicated Testing Performed By: [facility] [address] [place] [address] Dr. Donnie Jean, Inspector Mechanical Performed By: #### C 120, C141, C116, C406, C4521, C118, C47, C4523, C215 #### [facility] [address] [place] [address] [address] [place] [address] MCV (RBC) [Entitic vol] 110.6 fL High 78.0-100.0 [facility] Comment on above: Order Comment: Items in this order include: Cholesterol, Comprehensive Metabolic Panel, Direct LDL , HDL, Uric Acid , CBC with differential, HgbA1C, , , Slide Scan if Indicated, Manual Differential if Indicated Testing Performed By: [facility] [address] [place] [address] Dr. Donnie Jean, Inspector Mechanical Items in this order include: Cholesterol, Comprehensive Metabolic Panel, Direct LDL , HDL, Uric Acid , CBC with differential, HgbA1C, , , Slide Scan if Indicated, Manual Differential if Indicated Testing Performed By: [facility] [address] [place] [address] Dr. Donnie Jean, Inspector Mechanical Items in this order include: Cholesterol, Comprehensive Metabolic Panel, Direct LDL , HDL, Uric Acid , CBC with differential, HgbA1C, , , Slide Scan if Indicated, Manual Differential if Indicated Testing Performed By: [facility] [address] [place] [address] Dr. Donnie Jean, Inspector Mechanical Performed By: #### C 120, C141, C116, C406, C4521, C118, C47, C4523, C215 #### [facility] [address] [place] [address] Platelet mean volume (Bld) [Entitic vol] 10.6 fL Normal 8.9-12.6 [facility] Comment on above: Order Comment: Items in this order include: Cholesterol, Comprehensive Metabolic Panel, Direct LDL , HDL, Uric Acid , CBC with differential, HgbA1C, , , Slide Scan if Indicated, Manual Differential if Indicated Testing Performed By: [facility] [address] [place] [address]. [place] [address] Dr. Donnie Jean, Inspector Mechanical Items in this order include: Cholesterol, Comprehensive Metabolic Panel, Direct LDL , HDL, Uric Acid , CBC with differential, HgbA1C, , , Slide Scan if Indicated, Manual Differential if Indicated Testing Performed By: [facility] [address] [place] [address]. [place] [id number] Dr. Donnie Jean, Inspector Mechanical Items in this order include: Cholesterol, Comprehensive Metabolic Panel, Direct LDL , HDL, Uric Acid , CBC with differential, HgbA1C, , , Slide Scan if Indicated, Manual Differential if Indicated Testing Performed By: [facility] [address] [place] [address]. [place] [address] Dr. Donnie Jean, Inspector Mechanical Performed By: #### C 120, C141, C116, C406, C4521, C118, C47, C4523, C215 #### [facility]. [address] [place] [address] [address] [place] [address] Platelets (Bld) [#/Vol] 302 K CUMM Normal 130-400 [facility] Comment on above: Order Comment: Items in this order include: Cholesterol, Comprehensive Metabolic Panel, Direct LDL , HDL, Uric Acid , CBC with differential, HgbA1C, , , Slide Scan if Indicated, Manual Differential if Indicated Testing Performed By: [facility] [address] [place] [address]. [place] [address] Dr. Donnie Jean, Inspector Mechanical Items in this order include: Cholesterol, Comprehensive Metabolic Panel, Direct LDL , HDL, Uric Acid , CBC with differential, HgbA1C, , , Slide Scan if Indicated, Manual Differential if Indicated Testing Performed By: [facility] [address] [place] [address] [place] [address] Dr. Donnie Jean, Inspector Mechanical Items in this order include: Cholesterol, Comprehensive Metabolic Panel, Direct LDL , HDL, Uric Acid , CBC with differential, HgbA1C, , , Slide Scan if Indicated, Manual Differential if Indicated Testing Performed By: [facility] [address] [place] [address] [place] [address] Dr. Donnie Jean, Inspector Mechanical Performed By: #### C 120, C141, C116, C406, C4521, C118, C47, C4523, C215 #### [facility] [address] [place] [address] RBC (Bld) [#/Vol] 3.67 M CUMM Low 3.80-5.10 [facility] Comment on above: Order Comment: Items in this order include: Cholesterol, Comprehensive Metabolic Panel, Direct LDL , HDL, Uric Acid , CBC with differential, HgbA1C, , , Slide Scan if Indicated, Manual Differential if Indicated Testing Performed By: [facility] [address] [place] [address] [place] [address] Dr. Donnie Jean, Inspector Mechanical Items in this order include: Cholesterol, Comprehensive Metabolic Panel, Direct LDL , HDL, Uric Acid , CBC with differential, HgbA1C, , , Slide Scan if Indicated, Manual Differential if Indicated Testing Performed By: [facility] [address] [place] [address]. [place] [address] Dr. Donnie Jean, Inspector Mechanical Items in this order include: Cholesterol, Comprehensive Metabolic Panel, Direct LDL , HDL, Uric Acid , CBC with differential, HgbA1C, , , Slide Scan if Indicated, Manual Differential if Indicated Testing Performed By: [facility] [address] [place] [address]. [place] [address] Dr. Donnie Jean, Inspector Mechanical Performed By: #### C 120, C141, C116, C406, C4521, C118, C47, C4523, C215 #### [facility] [address] [place] [address] WBC (Bld) [#/Vol] 19.7 K CUMM High 3.8-10.6 [facility] Comment on above: Order Comment: Items in this order include: Cholesterol, Comprehensive Metabolic Panel, Direct LDL , HDL, Uric Acid , CBC with differential, HgbA1C, , , Slide Scan if Indicated, Manual Differential if Indicated Testing Performed By: [facility] [address] [place] [address] Dr. Donnie Jean, Inspector Mechanical Items in this order include: Cholesterol, Comprehensive Metabolic Panel, Direct LDL , HDL, Uric Acid , CBC with differential, HgbA1C, , , Slide Scan if Indicated, Manual Differential if Indicated Testing Performed By: [facility] [place] [address] Dr. Donnie Jean, Inspector Mechanical Items in this order include: Cholesterol, Comprehensive Metabolic Panel, Direct LDL , HDL, Uric Acid , CBC with differential, HgbA1C, , , Slide Scan if Indicated, Manual Differential if Indicated Testing Performed By: [facility] [place] [address] Dr. Donnie Jean, Inspector Mechanical Performed By: #### C 120, C141, C116, C406, C4521, C118, C47, C4523, C215 #### [facility] [address] [place] [id number] Cholesterolon 01-18-2020 Cholesterol [Mass/Vol] 112 mg/dL Normal <200 [facility] Comment on above: Order Comment: Items in this order include: Cholesterol, Comprehensive Metabolic Panel, Direct LDL , HDL, Uric Acid , CBC with differential, HgbA1C, , , Slide Scan if Indicated, Manual Differential if Indicated Testing Performed By: [facility] [place] [id number] Dr. Donnie Jean, Inspector Mechanical Performed By: #### C 120, C141, C116, C406, C4521, C118, C47, C4523, C215 #### [facility] [address] [place] [address] Comprehensive Metabolic Pane donnie 03-02-2020 Albumin [Mass/Vol] 4.0 g/dL Normal 3.5-5.0 [facility] Comment on above: Performed By: #### C 120, C141, C116, C406, C4521, C118, C47, C4523, C215 #### [facility] [address] [place] [address] Alk Phos 74 U/L Normal 23-159 [facility] Comment on above: Performed By: #### C 120, C141, C116, C406, C4521, C118, C47, C4523, C215 #### [facility] [address] [place] [address] ALT [Catalytic activity/Vol] 18 U/L Normal 0-38 [facility] Comment on above: Performed By: #### C 120, C141, C116, C406, C4521, C118, C47, C4523, C215 #### [facility] [address] [place] [address] AST [Catalytic activity/Vol] 22 U/L Normal 11-43 [facility] Comment on above: Performed By: #### C 120, C141, C116, C406, C4521, C118, C47, C4523, C215 #### [facility] [address] [place] [address] Bilirubin [Mass/Vol] 0.6 mg/dL Normal 0.2-1.3 [facility] Comment on above: Performed By: #### C 120, C141, C116, C406, C4521, C118, C47, C4523, C215 #### [facility] [address] [place] [address] Calcium [Mass/Vol] 9.2 mg/dL Normal 8.5-10.5 [facility] Comment on above: Performed By: #### C 120, C141, C116, C406, C4521, C118, C47, C4523, C215 #### [facility] [address] [place] [address] Chloride [Moles/Vol] 101 mmol/L Normal 98-107 [facility] Comment on above: Performed By: #### C 120, C141, C116, C406, C4521, C118, C47, C4523, C215 #### [facility] [address] [place] [address] CO2 [Moles/Vol] 22.0 mmol/L Normal 21.0-32.0 [facility] Comment on above: Performed By: #### C 120, C141, C116, C406, C4521, C118, C47, C4523, C215 #### [facility] [address] [place] [address] Creatinine [Mass/Vol] 1.2 mg/dL Normal 0.1-1.2 [facility] Comment on above: Performed By: #### C 120, C141, C116, C406, C4521, C118, C47, C4523, C215 #### [facility] [address] [place] [address] GFR/1.73 sq M.predicted MDRD (S/P/Bld) [Vol rate/Area] 43 mL/min per 1.73 Low >60 [facility] Comment on above: Result Comment: The GFR estimate is not adjusted for race. If the patient's race is -[place]amo[place], the GFR estimate must be multiplied by a factor of 1.21. Performed By: #### C 120, C141, C116, C406, C4521, C118, C47, C4523, C215 #### [facility] [address] [place] [address] Glucose [Mass/Vol] 157 mg/dL High 74-100 [facility] Comment on above: Performed By: #### C 120, C141, C116, C406, C4521, C118, C47, C4523, C215 #### [facility] [address] [place] [address] Potassium [Moles/Vol] 4.3 mmol/L Normal 3.5-5.3 [facility] Comment on above: Performed By: #### C 120, C141, C116, C406, C4521, C118, C47, C4523, C215 #### [facility] [address] [place] [address] Protein [Mass/Vol] 6.7 g/dL Normal 6.3-8.4 [facility] Comment on above: Performed By: #### C 120, C141, C116, C406, C4521, C118, C47, C4523, C215 #### [facility] [address] [place] [address] Sodium [Moles/Vol] 136 mmol/L Normal 135-145 [facility] Comment on above: Performed By: #### C 120, C141, C116, C406, C4521, C118, C47, C4523, C215 #### [facility] [place] [address] Urea nitrogen [Mass/Vol] 25 mg/dL High 6-22 [facility] Comment on above: Performed By: #### C 120, C141, C116, C406, C4521, C118, C47, C4523, C215 #### [facility] [address] [place] [address] Direct LDLon 01-18-2020 Cholesterol in LDL [Mass/Vol] 49 mg/dL Normal <130 [facility] Comment on above: Order Comment: Items in this order include: Cholesterol, Comprehensive Metabolic Panel, Direct LDL , HDL, Uric Acid , CBC with differential, HgbA1C, , , Slide Scan if Indicated, Manual Differential if Indicated Testing Performed By: [facility] [address] [place] [address]. [place] [id number] Dr. Donnie Jean, Inspector Mechanical Result Comment: LDL goal dependent upon individual risk Performed By: #### C 120, C141, C116, C406, C4521, C118, C47, C4523, C215 #### [facility] [address] [place] [address] HDLon 01-18-2020 Cholesterol in HDL [Mass/Vol] 30 mg/dL Low >50 [facility] Comment on above: Performed By: #### C 120, C141, C116, C406, C4521, C118, C47, C4523, C215 #### [facility] [place] [id number] 01-18-2020 HbA1c (Bld) [Mass fraction] 6.7 % High <5.7 [facility] Comment on above: Order Comment: Items in this order include: Cholesterol, Comprehensive Metabolic Panel, Direct LDL , HDL, Uric Acid , CBC with differential, HgbA1C, , , Slide Scan if Indicated, Manual Differential if IndicatedTesting Performed By: [facility] [address] [place] [address]. [place] [id number] Dr. Donnie Jean, Inspector Mechanical Result Comment: Refe rence Interval: Normal: below 5.7%. Prediabetes: 5.7% to 6.4%. Diabetes: 6.5% or above. Performed By: #### C 709 #### [facility] [place] [address] Manual Differential if Indic atedon 01-18-2020 Anisocytosis Ql (Bld) SLIGHT Normal [facility] Comment on above: Order Comment: Jorge L galvan comment: User comments: Slide comments: Performed By: #### C 120, C141, C116, C406, C4521, C118, C47, C4523, C215 #### [facility] [place] [address] Performed By: #### C 709 #### [facility] [address] [place] [address] Basophils 2 % Normal [facility] Comment on above: Order Comment: Recei mandy comment: User comments: Slide comments: Performed By: #### C 120, C141, C116, C406, C4521, C118, C47, C4523, C215 #### [facility] [address] [place] [address] [place] Cells SLIGHT Normal [facility] Comment on above: Order Comment: Recei mandy comment: User comments: Slide comments: Performed By: #### C 120, C141, C116, C406, C4521, C118, C47, C4523, C215 #### [facility] [address] [place] [address] Performed By: #### C 709 #### [facility] [address] [place] [address] Hypochromasia SLIGHT Normal SLIGHT [facility] Comment on above: Order Comment: Recei mandy comment: User comments: Slide comments: Performed By: #### C 120, C141, C116, C406, C4521, C118, C47, C4523, C215 #### [facility] [address] [place] [address] Performed By: #### C 709 #### [facility] [address] [place] [address] Lymphocytes 4 % Low 20-51 [facility] Comment on above: Order Comment: Recei mandy comment: User comments: Slide comments: Performed By: #### C 120, C141, C116, C406, C4521, C118, C47, C4523, C215 #### [facility] [address] [place] [address] Macrocytes Ql (Bld) SLIGHT Normal [facility] Comment on above: Order Comment: Recei mandy comment: User comments: Slide comments: Performed By: #### C 120, C141, C116, C406, C4521, C118, C47, C4523, C215 #### [facility] [address] [place] [address] Performed By: #### C 709 #### [facility] [address] [place] [address] Monocytes 3 % Normal 2-9 [facility] Comment on above: Order Comment: Recei mandy comment: User comments: Slide comments: Performed By: #### C 120, C141, C116, C406, C4521, C118, C47, C4523, C215 #### [facility] [address] [place] [address] Neutrophils 91 % High 42-75 [facility] Comment on above: Order Comment: Recei mandy comment: User comments: Slide comments: Performed By: #### C 120, C141, C116, C406, C4521, C118, C47, C4523, C215 #### [facility] [address] [place] [address] Ovalocytes SLIGHT Normal [facility] Comment on above: Order Comment: Recei mandy comment: User comments: Slide comments: Performed By: #### C 120, C141, C116, C406, C4521, C118, C47, C4523, C215 #### [facility] [address] [place] [address] Performed By: #### C 709 #### [facility] [address] [place] [address] Poikilocytosis SLIGHT Normal [facility] Comment on above: Order Comment: Recei mandy comment: User comments: Slide comments: Performed By: #### C 120, C141, C116, C406, C4521, C118, C47, C4523, C215 #### [facility] [address] [place] [address] Performed By: #### C 709 #### [facility] [address] [place] [address] Polychromasia SLIGHT Normal [facility] Comment on above: Order Comment: Jorge L galvan comment: User comments: Slide comments: Performed By: #### C 120, C141, C116, C406, C4521, C118, C47, C4523, C215 #### [facility] [address] [place] [address] Performed By: #### C 709 #### [facility] [address] [place] [address] Uric Acidon 01-18-2020 Urate [Mass/Vol] 5.2 mg/dL Normal 2.5-6.2 [facility] Comment on above: Performed By: #### C 120, C141, C116, C406, C4521, C118, C47, C4523, C215 #### [facility] [address] [place] [address] Vital Signs Date Time Vital Sign Value Performing Clinician Faci lity 01-06-2024 14:30-0500 Body height 162.6 cm Leighton Horvath MD Work Phone: [facility] 01-06-2024 14:30-0500 Body mass index (BMI) [Ratio] 29.02 kg/m2 Leighton Horvath MD Work Phone: [facility] 01-06-2024 14:30-0500 Body temperature 97.7 [degF] Leighton Horvath MD Work Phone: [facility] 01-06-2024 14:30-0500 Body weight 76.7 kg Leighton Horvath MD Work Phone: [facility] Encounters Encounter Date Encounter Type Care Provider Facility Start: 01-06-2024 End: 01-07-2024 ambulatory [facility] Start: 01-06-2024 End: 01-06-2024 Office outpatient visit 15 minutes Leighton Horvath MD Work Phone: [facility] Comment on above: Closed displaced fra cture of right acetabulum with routine healing, unspecified portion of acetabulum, subsequent encounter (Primary Dx) Start: 12-09-2023 End: 12-09-2023 ambulatory ANTONIO Stoddard APLING Not Available Start: 10-21-2023 End: 10-21-2023 ambulatory ANTONIO Stoddard APLING Not Available Start: 09-30-2023 End: 10-01-2023 ambulatory ANTONIO Stoddard APLING Not Available Start: 09-20-2023 End: 09-20-2023 ambulatory [facility] Start: 03-08-2023 End: 03-08-2023 ambulatory BECK RENEE Facility:[facility] Start: 03-01-2023 End: 03-01-2023 ambulatory BECK RENEE Facility:[facility] Start: 02-19-2023 ambulatory BECK RENEE Facility: [facility] Start: 02-06-2023 End: 02-06-[address] SON HADLEY Facility:[facility] Start: 01-18-2023 End: 01-19-2023 ambulatory BECK RENEE Facility:[facility] Start: 01-18-2023 End: 01-18-2023 ambulatory BECK RENEE Facility:[facility] Start: 12-25-2022 End: 12-25-2022 [facility]ulatory [facility] Start: 06-26-2022 End: 06-27-2022 ambulatory YOU BARILLAS Facility:[facility] Start: 05-08-2022 End: 05-09-[address] BENNIE ALBRIGHT . Facility:[facility] Start: 04-03-2022 End: 04-18-2022 ambulatory LOU RANDHAWA Facility:[facility] Start: 04-01-2022 End: 04-16-2022 Evaluation and management of inpatient Genaro Torrezd Facility:[facility] Start: 03-22-2022 End: 04-01-2022 Evaluation and management of inpatient DR FARSHAD DONALDSON . Facility:[facility] Start: 11-02-2021 ambulatory CHCIARO MARIANOCHELI Facility :[facility] Start: 08-17-2021 ambulatory OTHER [facility] Start: 07-21-2020 End: 07-21-2020 Patient encounter procedure ARA COFFMAN [facility] Procedures Date Procedure Procedure Detail Performing Clinician Start: 01-06-2024 Follow-up visit Follow-up LEIGHTON HORVATH Start: 04-03-2022 Antibody screen LOU Stephen CRISTY Comment on above: Performed By: #### 8 [id number] #### [address] Plan of Treatment Date Care Activity Detail Author Start: 01-06-2025 Adult BMI Screening Adult BMI Screening [facility] Start: 01-06-2025 Tobacco Screening Tobacco Screening [facility] Start: 07-30-2024 End: 07-30-2024 Patient encounter procedure 07/30/2024 1:00 PM EDT Office Visit Amairani Lowry [facility] [address] [place] [phone] Laurel Mueller MD [address] [place] [address] [address] [place] [address] Amairani Lowry [facility] Start: 07-19-2023 COVID-19 Vaccine ( season) COVID-19 Vaccine ( season) [facility] Start: 07-19-2023 Influenza vaccination Influenza Vaccine [facility] Start: 07-09-2017 Administration of varicella zoster vaccine Zoster (Shingles) Vaccine (1 of 2) [facility] Start: 2004 Fall Risk Screening Fall Risk Screening [facility] Start: 1958 DTaP,Tdap and Td Vaccines (1 - Tdap) DTaP,Tdap and Td Vaccines (1 - Tdap) [facility] Start: 1957 Adult BMI Follow Up Plan Adult BMI Follow Up Plan [facility] Start: 1951 Depression Screening Depression Screening [facility] Start: 1939 Medicare Annual Wellness Visit Medicare Annual Wellness Visit [facility] Immunizations Immunization Date Immunization Notes Care Provider Junior tompkins 03-08-2022 COVID-19, mRNA, LNP- S, PF, 100mcg/0.5mL Dose Leighton Horvath MD Work Phone: [facility] 08-10-2021 pneumococcal conjuga te vaccine, 13 faraz Horvath MD Work Phone: [facility] 08-22-2020 Influenza, High-dose , Quadrivalent Leighton Horvath MD Work Phone: [facility] 08-22-2020 pneumococcal conjuga te vaccine, 13 faraz Horvath MD Work Phone: [facility] 08-22-2020 influenza virus vacc ine, unspecified formulation Leighton Horvath MD Work Phone: [facility] 05-10-2020 pneumococcal polysaccharide vaccine, 23 emmieent Leighton Horvath MD Work Phone: [facility] 09-21-2019 influenza, high dose seasonal, preservative-free Leighton Horvath MD Work Phone: [facility] 10-21-2018 influenza, high dose seasonal, preservative-free Leighton Horvath MD Work Phone: [facility] 05-14-2017 zoster vaccine, live Leighton Horvath MD Work Phone: [facility] 05-14-2017 zoster vaccine, unspecified formulation Leighton Horvath MD Work Phone: [facility] 09-10-2016 influenza, high dose seasonal, preservative-free Leighton Horvath MD Work Phone: [facility] 09-10-2016 pneumococcal conjuga te vaccine, 13 faraz Horvath MD Work Phone: [facility] 09-01-2015 influenza, high dose seasonal, preservative-free Leighton Horvath MD Work Phone: [employer] 08-26-2014 influenza, seasonal, injectable Leighton Horvath MD Work Phone: [employer] 08-26-2014 pneumococcal polysaccharide vaccine, 23 valent Leighton Horvath MD Work Phone: [employer] 08-26-2013 influenza, seasonal, injectable [facility]ighton [facility]vath MD [facility] Payers Date Payer Category Payer Medicare [employer] MEDICARE UHC MEDICARE ADVANTAGE PPO [id number] 2022-Present [phone] [address] [address] [place] [address] [id number] 2021 Medicaid MEDICAID [facility] EDICAID [id number] 2021-Present [phone] [address] [place] [address] [id number] 2019 Medicare [id number] Medicaid [id number] 1959 Medicare [id number] 1959 Private Health Insurance [id number] 1939 Unknown [id number] 2.16.840.1.354870.3.579. 2.900 1939 Unknown [id number] 2.16.840.1.904566.3.579. 2.594 1939 Unknown [id number] 2.16.840.1.092032.3.579. 2.594 1939 Unknown [id number] 2.16.840.1.515823.3.579. 2.594 1939 Unknown [id number] 2.16.840.1.190663.3.579. 2.647 1939 Unknown [id number] 2.16.840.1.173236.3.579. 2.647 1939 Unknown [id number] 2.16.840.1.512368.3.579. 2.647 1939 Unknown [id number] 2.16.840.1.934973.3.579. 2.593 1939 Unknown [id number] 2.16.840.1.097576.3.579. 2.593 1939 Unknown [id number] 2.16.840.1.036396.3.579. 2.593 1939 Unknown [id number] 2.16.840.1.609165.3.579. 2.593 1939 Unknown [id number] 2.16.840.1.654854.3.579. 2.593 1939 Unknown [id number] 2.16.840.1.559028.3.579. 2.593 1939 Unknown [id number] 2.16.840.1.370974.3.579. 2.593 1939 Unknown [id number] 2.16.840.1.707272.3.579. 2.593 1939 Unknown [id number] 2.16.840.1.289841.3.579. 2.1259 1939 Unknown [id number] 2.16.840.1.356403.3.579. 2.1259 1939 Unknown [id number] 2.16.840.1.950966.3.579. 2.1259 1939 Unknown [id number] 2.16.840.1.501317.3.579. 2.1259 1939 Unknown [id number] 2.16.840.1.658065.3.579. 2.1286 1939 Unknown [id number] 2.16.840.1.833568.3.579. 2.1286 Social History Date Type Detail Facility Start: 02-07-2023 Tobacco smoking stat NHIS Ex-smoker [facility] History of tobacco use Current smoker [facility] History of tobacco use Cigarette Smoker [facility] Start: 02-07-2023 Tobacco use and exposure Smokeless tobacco non-user [facility] Start: 01-07-2024 Alcohol intake Ex-drinker (finding) [facility] Start: 01-06-2024 End: 01-07-2024 History of Social function [facility] Start: 01-06-2024 End: 01-07-2024 Tobacco use panel [facility] Are you worried or concerned that in the next two months you may not have stable housing that you own, rent or stay in as a part of a household? No [facility] Start: 1940 Sex Assigned At Female [facility] Medical Equipment Procedure Code Equipment Code Equipment Origin al Text Equipment Identifier Dates Plate Bn [id number] m / Tblr 6 Hl Colr Ss .5mm 12mm Ns - [id number] Start: 02-08-2023 Screw Bn 26mm 4m m 6mm Sm Hex Sckt Canc Ss 2.5mm Ft Ns Sm - [id number] Start: 02-08-2023 Goals Date Patient Goal [...] Leighton Horvath MD documented in this encounter [facility] Progress note 09-20-2023 Note Date & Type Note Facility 09-20-2023 Note DC Cardiology - [facility] Subjective María Elena Tafoya is [...] in March 2022 was admitted to the [facility] and then [facility] with [...] function (more content not included)... [facility] Progress note 12-25-2022 Note Date & Type Note Facility 12-25-2022 Note Cardiovascular Medic ine [facility] SUBJECTIVE Chief Complaint Patient presents with Atrial Fibrillation María Elena Tafoya is a 82 y.o. female here for follow-up. HPI She is an 82-year-old woman who was admitted in March 2022 to [facility] and then [facility] with [...] 11 (more content not included)... [facility] Progress note 12-25-2022 Note Date & Type Note Facility 12-25-2022 Note Patient here for fol low up [place] on event monitor per Dr. Leos. Patient denies chest pain and SOB. Feels good. Review of Systems All other systems reviewed and are negative. [facility] Discharge summary note 04-16-2022 Note Date & Type Note Facility 04-16-2022 Note MR#: [id number] I [facility] Pt. Name: María Elena Tafoya Admitted: 04/01/2022 [...] Gordillo MD Date Trans: 04/16/2022 09:55 A/erik [id number] cc: Bennie Albright M.D. [address] [address] [facility] Discharge summary note 04-13-2022 Note Date & Type Note Facility 04-13-2022 Note MR#: [id number] I [facility] Pt. Name: María Elena Tafoya Admitted: 04/01/2022 [...] history as above, who was transferred from [facility] secondary to gallstone induced acute pancreatitis. [...] to repeat a voiding trial at the half-way in 1-3 days and follow up with provider at that facility, however, her discharge is currently pending precert, so if she does remain at this facility, we may also just discontinue (more content not included)... 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 ADVISOR Latest Code Status on File Code Status Date Activated Date Inactivated Comments Full Code 02/07/2023 12:03 AM 02/12/2023 3:45 PM Healthcare Agents on File Name Relationship Healthcare Agent Relationship Communication Andreea Liz Health Care Agent [email or web address] Additional Source Comments INFORMATION SOURCE (unrecogn ized section and content) DATE CREATED AUTHOR 02/04/2020 [facility] DATE CREATED AUTHOR AUTHOR'S ORGANIZ ATION 08/23/2020 [facility] DATE CREATED AUTHOR AUTHOR'S ORGANIZ ATION 09/28/2020 [facility] DATE CREATED AUTHOR AUTHOR'S ORGANIZ ATION 02/12/2021 [facility] DATE CREATED AUTHOR AUTHOR'S ORGANIZ ATION 02/07/2022 [facility] DATE CREATED AUTHOR AUTHOR'S ORGANIZ ATION 07/13/2022 [facility] DATE CREATED AUTHOR AUTHOR'S ORGANIZ ATION 03/15/[address] [facility] DATE CREATED AUTHOR AUTHOR'S ORGANIZ ATION 09/21/2023 [facility] DATE CREATED AUTHOR AUTHOR'S ORGANIZ ATION 12/09/2023 [facility] DATE CREATED AUTHOR AUTHOR'S ORGANIZ ATION 01/08/[address] [facility] Reason for Visit (unrecogniz ed section [...] BE BASED ON THE PRIMARY CLINICAL RECORDS. [facility] [employer] [facility]. provides no warranty or guarantee of the accuracy or completeness of information in this document.
== END 2024-03-02 12:02 | DRG 193 ==
LOC: ER 11:12 → MS 03-02 06:28
PROVIDERS: Nurse Practitioner Acute Care; Admitting Provider Internal Medicine; Emergency Provider Emergency Medicine; PCP Family Medicine; Visit Provider Nurse Practitioner
DX: J18.9 Pneumonia, unspecified organism (principal); G93.41 Metabolic encephalopathy; J96.01 Acute respiratory failure with hypoxia; R65.20 Severe sepsis without septic shock; N39.0 Urinary tract infection, site not specified; E87.20 Acidosis, unspecified; N18.4 Chronic kidney disease, stage 4 (severe); C91.11 Chronic lymphocytic leukemia of B-cell type in remission; E11.29 Type 2 diabetes mellitus with other diabetic kidney complication; I12.9 Hypertensive chronic kidney disease with stage 1 through stage 4 chronic kidney disease, or unspecified chronic kidney disease; B34.8 Other viral infections of unspecified site; I48.0 Paroxysmal atrial fibrillation; G30.1 Alzheimer's disease with late onset; F02.80 Dementia in other diseases classified elsewhere, unspecified severity, without behavioral disturbance, psychotic disturbance, mood disturbance, and anxiety; Z85.3 Personal history of malignant neoplasm of breast; Z20.822 Contact with and (suspected) exposure to COVID-19; Z90.11 Acquired absence of right breast and nipple; Z79.82 Long term (current) use of aspirin; Z79.01 Long term (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 of anticoagulants; Z79.899 Other long term (current) drug therapy; B96.20 Unspecified Escherichia coli [E. coli] as the cause of diseases classified elsewhere
CPT/HCPCS: 36415; 36600; 51702; 70450; 71045; 80048; 80053; 81001; 82140; 82805; 83605; 84145; 84484; 85007; 85025; 85027; 87040; 87086; 87150; 87186; 93005; 94640; 94761; 96361; 96365; 96366; 96367; 96372; 96375; 97161; 97165; 99285; 0202U; J0360; J0696; J1650; J7512

== ENCOUNTER 2024-04-03 02:40 | Outpatient (REF) | payer MEDICARE, MEDICAID, SELFPAY ==
--- OUTSIDE RECORDS SUMMARY | 2024-04-03 02:45 | XMS_ITS | CCD ---
Author Organization [facility] Care Team Providers Care Chief Chemist Name Role Phone KING ARA COFFMAN Attending Unavailable PETRA ARAIZA Attending Unavailable SELF, SELF Referring Unavailable [facility] Referring Unavailable PETRA ARAIZA Attending Unavailable PETRA ARAIZA Referring Unavailable PETRA ARAIZA Attending Unavailable LOU RANDHAWA Admitting Unavailable LOU RANDHAWA Attending Unavailable BENNIE ALBRIGHT Primary Care Unavailable BENNIE ALBRIGHT Referring Unavailable Samuel Gordilloi Attending Unavailable SELF, REFERRED Referring Unavailable BENNIE ALBRIGHT Primary Care Unavailable Duy Hani Admitting Unavailable ALASTAL, YASEEN Admitting Unavailable NARGIS, YASEEN Attending Unavailable BENNIE ALBRIGHT Referring Unavailable BENNIE ALBRIGHT Primary Care Unavailable VÍCTOR, BECK Primary Care Unavailable NATALEE ., DR AVERY Admitting Unavailable HOY ., DR AVERY Attending Unavailable HOY ., DR AVERY Consulting Unavailable VÍCTOR, EBCK Primary Care Unavailable LAUREL MUELLER Admitting Unavailable LAUREL MUELLER Attending Unavailable ERVINLAUREL Consulting Unavailable VÍCTOR, BECK Primary Care Unavailable TRACI CARMICHAEL Attending Unavailable JESSICA CARMICHAELA C Consulting Unavailable AMOL, TRACI C Admitting Unavailable VÍCTOR, BECK Primary Care Unavailable AMOL, TRACI C Admitting Unavailable TRACI CARMICHAEL C Attending Unavailable NATALEE ., DR AVERY Admitting Unavailable SELENEY ., DR AVERY Attending Unavailable NATALEE ., DR AVERY Consulting Unavailable QUINCY, DR ROGE Shoemaker Consulting Unavailable JOMAR, DR SON Azevedo Attending Unavaildario RENEE, BECK Primary Care Unavailable JOMAR, DR SON Azevedo Consulting Unavaildario HADLEY, DR SON Azevedo Admitting Unavailabl milton WATSON .TRUPTI Consulting UnavailFERMÍN Gomez Consulting Unavailable ROGE GORDON Consulting Unavailable NEFEVERTON, MARIETTA Consulting Unavailable CLARA HE Consulting Unavailable MENDOZA ., DR FARSHAD Rose Consulting Unavaila jose carlos MCDANIELWDARIO, SAN H Admitting Unavailable FARONNY, SAN H Attending Unavailable NATALEE ., DR AVERY Consulting Unavailable CHERYL ., DR JOSHUA Rose Consulting Unavailable QUINCY, DR ROGE Shoemaker Consulting Unavailable RIVERA, DR JORGE Lopez Consulting Unavailable COURTNEY, DR BLAIRE Love Consulting Unavailable HAY ., DR CLAROS Consulting Unavailable SAMSA ., IJEOMA Consulting Unavailable CLARITZA, SHAIKH Levon Consulting Unavailable BROOKE COSTELLO Consulting Unavailable YOUNG, ROGE Consulting Unavailable KERRI SCHULTZ Consulting Unavailable CATRACHO LEWIS Consulting Unavailable BECK RENEE Primary Care Unavailable NATALEE ., DR AVERY Admitting Unavailable NATALEE ., DR AVERY Attending Unavailable NATALEE ., DR AVERY Consulting Unavailable TRACI CARMICHAEL Attending Unavailable MARY LOU LEOS Attending Unavailable APLINGANTONIO Attending Unavailable APLINGANTONIO Attending Unavailable APLINGANTONIO Attending Unavailable APLINGANTONIO Referring Unavailable Unavailable Primary Care Provider UnavailKEELEY Lopez Referring Unavailable LEIGHTON HORVATH Attending Unavailabl e Allergies Allergy Classification Reported Allergen(s) Allergy Type Date of Onset Reaction(s) Facility (2 sources) Ciprofloxacin Drug Allergy 03-23-2022 [facility] Repository (2 sources) Dexamethasone; Translations: [DEXAMETHASONE] Drug Allergy 06-27-2023 [facility] (2 sources) Erythromycin; Translations: [ERYTHROMYCIN BASE] Drug Allergy 06-27-2023 [facility] (2 sources) Neomycin; Translations: [NEOMYCIN SULFATE] Drug Allergy 06-27-2023 [facility] (2 sources) Polymyxin B; Translations: [POLYMYXIN B] Drug Allergy 06-27-2023 [facility] (2 sources) Tobramycin; Translations: [TOBRAMYCIN] Drug Allergy 06-27-2023 [facility] Medications Current Medications Medication Drug [...] 30 days. 0 Active polyethylene glycol 3350 21093 mg powder for oral solution (1 source) Osmotic Laxative polyethylene gl ycol (GLYCOLAX) 17 gram packet Take 17 g by mouth daily as needed (constipation). 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 WAREHOUSING SPECIALIST CURRENT USE OF ASPIRIN] Onset: 03-06-2023 Episodic Other aftercare (1 source) alf (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 of non-steroidal anti-inflammatories (NSAID); Translations: [DATA WAREHOUSING SPECIALIST USE NSAID] Onset: 02-08-2023 Episodic Other connective [...] Onset: 04-05-2022 Episodic Other aftercare (1 source) 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; Translations: [DATA WAREHOUSING SPECIALIST CURRENT USE OF INSULIN] Onset: 04-05-2022 Episodic Other aftercare (1 source) 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 manager (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 of anticoagulants; Translations: [[facility] CURRNT USE ANTICOAGULANTS] Onset: 04-05-2022 Episodic Other [...] Sanders MD on 01/07/2024 3:35 AM Normal [facility] Office Visiton 09-20-2023 Follow-up visit [id number] Jennifer Tafoya 1940 F Date Provider Department Center 09/20/2023 MARY LOU FELIZ [facility] Family History Problem Relation Age of Onset Diabetes Sister Diabetes Brother Diabetes Maternal Grandfather Family Status - Relation Status Age at Sister Brother Maternal Grandfather Level of Service:98373 [place] OFFICE/OUTPATIENT ESTABLISHED MOD MDM 30-39 MIN Reason for Visit and Comments: Follow-up [847355] Normal [facility] CBC W MANUAL DIFFon 03-08-20 ANISOCYTOSIS 1+ Normal [facility] Comment on above: Performed By: #### C BCMAN ####[facility] [address]woq[address] [place] [address]Dr. Bhavani [facility] ATYPICAL LYMPH # Normal [facility] Comment on above: Performed By: #### C BCMAN ####[facility] Odsporcqdr[address] [place] [address]Dr. Jayceeroxi Camargo ATYPICAL LYMPH % Normal [facility] Comment on above: Performed By: #### C BCMAN ####[facility] Pjfywkknzm43[address] [place] [address]Dr. Bhavani Camargo BAND # 1.3 103/ul Critically high 0.0-0.3 [facility] Comment on above: Performed By: #### C BCMAN ####[facility] Bnrhsmeaod37[address] [place] [address]Dr. Jayceelan Camargo BAND % 4 % Normal 0-5 [facility] Comment on above: Performed By: #### C BCMAN ####[facility] Aeadbwxisu5[address] [place] [address]Dr. Bhavani Camargo BASOM # 0.00 103/ul Normal 0.00-0.10 [facility] Comment on above: Performed By: #### C OMID ####[facility] Rtchjkmucd2287 [place] [address]Dr. Bhavani Camargo BASOM % 0.0 % Critically low 0.2-2.0 [facility] Comment on above: Performed By: #### C OMID ####[facility] Huxizknmgm5[address] [place] [address]Dr. Bhavani Camargo BLAST # Normal [facility] Comment on above: Performed By: #### C BCJERSON ####[facility] Baxfkziacb2189 [place] [address]Dr. Bhavani Camargo BLAST % Normal [facility] Comment on above: Performed By: #### C OMID ####[facility] Vlkby[address]con[address] [place], [place] [address]Dr. Bhavani Camargo CORRECTED WBC Normal 4.0-11.0 [facility] Comment on above: Performed By: #### C OMID ####[facility] Rekipuaodu[address] [place], [place] [address]Dr. Bhavani Camargo EOS # 0.00 103/ul Normal 0.00-0.70 [facility] Comment on above: Performed By: #### C OMID ####[facility] Ah[address] [place], [place] [address]Dr. Bhavani Camargo EOS% 0.0 % Critically low 0.9-7.0 [facility] Comment on above: Performed By: #### C OMID ####[facility] Dozrtnnkkr[address] [place], [place] [address]Dr. Bhavani Camargo HCT 38.1 % Normal 36.0-48.0 [facility] Comment on above: Performed By: #### C OMID ####[facility] Dhmwxgosti[address] [place], [place] [address]Dr. Bhavani Camargo HGB 11.6 g/dl Critically low 12.0-16.0 [facility] Comment on above: Performed By: #### C OMID ####[facility] Abbjhbmoed[address] [place], [place] [address]Dr. Bhavani Camargo LYMPHM # 1.58 103/ul Normal 1.20-3.80 [facility] Comment on above: Performed By: #### C OMID ####[facility] Fhrxdkkpel58[address] [place] [phone]. Bhavani Camargo LYMPHM% 5.0 % Critically low 20.5-60.0 [facility] Comment on above: Performed By: #### C OMID ####[facility] Vormkfqqhx4[address] [place] [phone]. Bhavani Camargo MCH 29.7 pg Normal 26.7-34.0 [facility] Comment on above: Performed By: #### C OMID ####[facility] Zpgvsiygsr6917 [place] [phone]. Bhavani Camargo MCHC 30.4 g/dl Normal 29.9-35.2 [facility] Comment on above: Performed By: #### C OMID ####[facility] Kcsqoqkklu8[address] [place] [address]Dr. Bhavani Camargo MCV 97.7 fL Normal 81.0-99.0 [facility] Comment on above: Performed By: #### C OMID ####[facility] Efcayimtsu9657 [place] [phone]. Bhavani Camargo METAMYELOCYTE # Normal [facility] Comment on above: Performed By: #### C OMID ####[facility] Ipovtkkttj4566 [place] [phone]. Bhavani Camargo METAMYELOCYTE % Normal [facility] Comment on above: Performed By: #### C OMID ####[facility] Wqkvqhlamn8627 [place] [phone]. Bhavani Camargo MONOM# 0.95 103/ul Critically high 0.30-0.80 [facility] Comment on above: Performed By: #### C OMID ####[facility] Bonpnecrpf[address] [place] [phone]. Bhavani Camargo MONOM% 3.0 % Normal 1.7-12.0 [facility] Comment on above: Performed By: #### C OMID ####[facility] Uhfdktokor1231 [place], [place] [address]Rn. Bhavani Camargo MPV 10.6 fL Normal 9.5-13.5 [facility] Comment on above: Performed By: #### C OMID ####[facility] Khppuxetfe8813 [place] [phone]. Bhavani Camargo MYELOCYTE # Normal [facility] Comment on above: Performed By: #### C OMID ####[facility] Vyhedltfrx9499 [place] [phone]. Bhavani Camargo MYELOCYTE % Normal [facility] Comment on above: Performed By: #### C OMID ####[facility] Pthoptybqv1753 [place] [phone]. Bhavani Camargo NRBC Normal [facility] Comment on above: Performed By: #### C OMID ####[facility] Zvkffyfvot1526 [place] [phone]. Bhavani Camargo PLT 280 103/ul Normal 150-450 [facility] Comment on above: Performed By: #### C OMID ####[facility] Cdmuivcaeu3342 [place] [phone]. Bhavani Camargo RBC 3.90 106/ul Critically low 4.20-5.40 [facility] Comment on above: Performed By: #### C OMID ####[facility] Djscnaznol9904 [place] [phone]. Bhavani Camargo RDW 18.2 % Critically high 11.0-15.0 [facility] Comment on above: Performed By: #### C OMID ####[facility] Mdkswicovr1986 [place] [phone]. Bhavani Camargo SEG # 27.90 103/ul Critically high 1.40-6.50 [facility] Comment on above: Performed By: #### C OMID ####[facility] Zqtqgsangc7051 [place] [phone]. Bhavani Camargo SEG % 88.0 % Critically high 43.0-75.0 [facility] Comment on above: Performed By: #### C OMID ####[facility] Pzgdjgpsmg1763 [place] [phone]. Bhavani Camargo WBC 31.7 103/ul Critically high 4.0-11.0 [facility] Comment on above: Performed By: #### C OMID ####[facility] Exonkuyzxh2530 [place] [phone]. Bhavani Camargo PERIPHERAL SMEARon 3 Pathologist Cyto stain Nom (Cvx/Vag) [ID] DR. AFTAB SCHAFER Normal [facility] Comment on above: Result Comment: Revi ew of peripheral smear reveals RBCs with anisocytosis. The platelets areadequate in number with normal morphology. There is leukocytosis withneutrophilia. The WBC morphology is unremarkable. No atypical lymphocytes orimmature blasts are seen. The findings are suggestive of a reactive process.Clinical correlation is recommended. Performed By: #### P ERSMR ####[facility] [address] [place], [place] [address]Dr. Bhavani Camargo CBC W MANUAL DIFFon 03-01-20 23 ANISOCYTOSIS 1+ Normal [facility] Comment on above: Performed By: #### C OMID ####[facility] Wnb[address]jwnvef4[address] [place] [address]Dr. Bhavani Camargo ATYPICAL LYMPH # Normal [facility] Comment on above: Performed By: #### C OMID ####[facility] Lydjyidlhz3698 [place] [phone]. Bhavani Camargo ATYPICAL LYMPH % Normal [facility] Comment on above: Performed By: #### C OMID ####[facility] Hstpykbqjf9671 [place] [phone]. Bhavani Camargo BAND # 1.8 103/ul Critically high 0.0-0.3 [facility] Comment on above: Performed By: #### C OMID ####[facility] Hyqwroevwx3515 [place] [phone]. Bhavani Camargo BAND % 5 % Normal 0-5 [facility] Comment on above: Performed By: #### C OMID ####[facility] Zjcabsevkb1733 [place] [phone]. Bhavani Camargo BASOM # 0.00 103/ul Normal 0.00-0.10 [facility] Comment on above: Performed By: #### C BCMAN ####[facility] Tkzbvefzae26[address] [place] [address]Dr. Bhavani Camargo BASOM % 0.0 % Critically low 0.2-2.0 [facility] Comment on above: Performed By: #### C BCMAN ####[facility] Sqpsotszop8904 [place] [address]Dr. Bhavani Camargo BLAST # Normal [facility] Comment on above: Performed By: #### C BCMAN ####[facility] Hoexhcfgtj4498 [place] [address]Dr. Bhavani Camargo BLAST % Normal [facility] Comment on above: Performed By: #### C BCJERSON ####[facility] Xujlfqqiie[address] [place], [place] [address]Dr. Bhavani Camargo CORRECTED WBC Normal 4.0-11.0 [facility] Comment on above: Performed By: #### C BCMAN ####[facility] Qcibymlkcc[address] [place], [place] [address]Dr. Bhavani Camargo EOS # 0.00 103/ul Normal 0.00-0.70 [facility] Comment on above: Performed By: #### C BCMAN ####[facility] [address]wznff[address] [place], [place] [address]Dr. Bhavani Camargo EOS% 0.0 % Critically low 0.9-7.0 [facility] Comment on above: Performed By: #### C BCMAN ####[facility] Wygoxrskzw[address] [place], [place] [address]Dr. Bhavani Camargo HCT 32.6 % Critically low 36.0-48.0 [facility] Comment on above: Performed By: #### C BCMAN ####[facility] [address]juqnmfwi[address] [place], [place] [address]Dr. Bhavani Camargo HGB 10.0 g/dl Critically low 12.0-16.0 [facility] Comment on above: Performed By: #### C BCMAN ####[facility] Bsyxgbetmp3466 [place], [place] [address]Up. Bhavani Camargo LYMPHM # 1.75 103/ul Normal 1.20-3.80 [facility] Comment on above: Performed By: #### C OMID ####[facility] Hhazsyplzg2188 [place], [place] [address]Ia. Bhavani Camargo LYMPHM% 5.0 % Critically low 20.5-60.0 [facility] Comment on above: Performed By: #### C OMID ####[facility] Dswgnmbdwz7363 [place] [phone]. Bhavani Camargo MCH 29.6 pg Normal 26.7-34.0 [facility] Comment on above: Performed By: #### C OMID ####[facility] Nkaqlgwohq3315 [place] [phone]. Bhavani Camargo MCHC 30.7 g/dl Normal 29.9-35.2 [facility] Comment on above: Performed By: #### C OMID ####[facility] Skilgakzwl3143 [place] [phone]. Bhavani Camargo MCV 96.4 fL Normal 81.0-99.0 [facility] Comment on above: Performed By: #### C OMID ####[facility] Ehequnpgmy2792 [place] [phone]. Bhavani Camargo METAMYELOCYTE # Normal [facility] Comment on above: Performed By: #### C OMID ####[facility] Emjtbtncgx1340 [place] [phone]. Bhavani Camargo METAMYELOCYTE % Normal [facility] Comment on above: Performed By: #### C OMID ####[facility] Hwmzsxmqup2651 [place] [phone]. Bhavani Camargo MONOM# 0.70 103/ul Normal 0.30-0.80 [facility] Comment on above: Performed By: #### C OMID ####[facility] Rhirlescxy4071 [place] [phone]. Bhavani Camargo MONOM% 2.0 % Normal 1.7-12.0 [facility] Comment on above: Performed By: #### C OMID ####[facility] Kitsmyypws1323 [place] [phone]. Bhavani Camargo MPV 9.8 fL Normal 9.5-13.5 [facility] Comment on above: Performed By: #### C OMID ####[facility] Cwemasixbg8343 [place] [phone]. Bhavani Camargo MYELOCYTE # Normal [facility] Comment on above: Performed By: #### C OIMD ####[facility] Cwslxwrubi6753 [place] [phone]. Bhavani Camargo MYELOCYTE % Normal [facility] Comment on above: Performed By: #### C OMID ####[facility] Dgpgifjfbi7716 [place] [address]Dr. Bhavani Camargo NRBC Normal [facility] Comment on above: Performed By: #### C OMID ####[facility] Ohdygcbmjc8950 [place] [phone]. Bhavani Camargo PLT 382 103/ul Normal 150-450 [facility] Comment on above: Performed By: #### C OMID ####[facility] Nf[address] [place], [place] [address]Dr. Bhavani Camargo RBC 3.38 106/ul Critically low 4.20-5.40 [facility] Comment on above: Performed By: #### C OMID ####[facility] Sdqmwkeqpl9168 [place] [phone]. Bhavani Camargo RDW 17.7 % Critically high 11.0-15.0 [facility] Comment on above: Performed By: #### C OMID ####[facility] Xxeyciqucr0344 [place] [phone]. Bhavani Camargo SEG # 30.80 103/ul Critically high 1.40-6.50 [facility] Comment on above: Performed By: #### C OMID ####[facility] F[address]ukyctsx[address] [place], [place] [address]Dr. Bhavani Camargo SEG % 88.0 % Critically high 43.0-75.0 [facility] Comment on above: Performed By: #### C OMID ####[facility] Khwttenvif67[address] [place] [address]Dr. Bhavani Camargo WBC 35.0 103/ul Critically high 4.0-11.0 [facility] Comment on above: Performed By: #### C OMID ####[facility] Cesmxolsnm3560 [place] [address]Dr. Bhavani Camargo PROF 14(COMP METB)on 023 Albumin [Mass/Vol] 2.6 g/dL Critically low 3.4-5.0 [facility] Comment on above: Performed By: #### C ALISTAIR, TSH ####[facility] Zieptefeuu2618 [place] [address]Dr. Bhavani Camargo Albumin/Globulin [Mass ratio] 0.6 {ratio} Normal [facility] Comment on above: Performed By: #### C ALISTAIR, TSH ####[facility] Rkdrrzlixc7084 [place] [address]Dr. Bhavani Camargo ALP [Catalytic activity/Vol] 117 U/L Critically high 46-116 [facility] Comment on above: Performed By: #### C ALISTAIR, TSH ####[facility] Wfchazkxew2038 [place] [address]Dr. Bhavani Camargo ALT [Catalytic activity/Vol] 11 U/L Critically low 14-59 [facility] Comment on above: Performed By: #### C ALISTAIR, TSH ####[facility] Epjcxcvzuk9468 [place] [address]Dr. Bhavani Camargo Anion gap [Moles/Vol] 13.0 mmol/L Normal [facility] Comment on above: Performed By: #### C MP, TSH ####[facility] Vxdarqmbut2433 [place] [address]Dr. Bhavani Camargo AST [Catalytic activity/Vol] 19 U/L Normal 15-37 [facility] Comment on above: Performed By: #### C ALISTAIR, TSH ####[facility] C[address]bfucqfw[address] [place], [place] [address]Dr. Bhavani Camargo Bilirubin [Mass/Vol] 0.4 mg/dL Normal 0.2-1.0 [facility] Comment on above: Performed By: #### C MP, TSH ####[facility] Ypdqblwyso0192 [place] [address]Dr. Bhavani Camargo Calcium [Mass/Vol] 8.9 mg/dL Normal 8.5-10.1 [facility] Comment on above: Performed By: #### C MP, TSH ####[facility] Lmzsjvuenp8033 [place] [address]Dr. Bhavani Camargo Chloride [Moles/Vol] 103 mmol/L Normal 98-107 [facility] Comment on above: Performed By: #### C MP, TSH ####[facility] [address]fcfmgn[address] [place], [place] [address]Dr. Bhavani Camargo CO2 [Moles/Vol] 26.8 mmol/L Normal 21.0-32.0 [facility] Comment on above: Performed By: #### C MP, TSH ####[facility] R[address]jblhjhy[address] [place], [place] [address]Dr. Bhavani Camargo Creatinine [Mass/Vol] 1.44 mg/dL Critically high 0.55-1.02 [facility] Comment on above: Performed By: #### C MP, TSH ####[facility] Esnwmbzsfs[address] [place], [place] [address]Dr. Bhavani Camargo EGFR-AF MALAYSIAN 42 mL/min/1.73m2 Critically low >=60 [facility] Comment on above: Performed By: #### C MP, TSH ####[facility] Mesabtjxus4[address] [place] [address]Dr. Bhavani Camargo EGFR-NON AF MALAYSIAN 35 mL/min/1.73m2 Critically low >=60 [facility] Comment on above: Performed By: #### C MP, TSH ####[facility] E[address]xcluyuy[address] [place], [place] [address]Dr. Bhavani Camargo Globulin (S) [Mass/Vol] 4.4 g/dL Normal [facility] Comment on above: Performed By: #### C MP, TSH ####[facility] Xrpadaeinn5875 [place] [phone]. Bhavani Camargo Glucose [Mass/Vol] 90 mg/dL Normal 74-106 [facility] Comment on above: Performed By: #### C MP, TSH ####[facility] Iavpsdghjn7813 [place] [phone]. Bhavani Camargo Potassium [Moles/Vol] 4.8 mmol/L Normal 3.5-5.1 [facility] Comment on above: Performed By: #### C MP, TSH ####[facility] Oxqiooojuf3101 [place] [phone]. Bhavani Camargo Protein [Mass/Vol] 7.0 g/dL Normal 6.4-8.2 [facility] Comment on above: Performed By: #### C ALISTAIR, TSH ####[facility] Tubpcvinni1870 [place] [address]Dr. Bhavani Camargo Sodium [Moles/Vol] 138 mmol/L Normal 136-145 [facility] Comment on above: Performed By: #### C ALISTAIR, TSH ####[facility] Vldlpfiasc1787 [place] [phone]. Bhavani Camargo Urea nitrogen [Mass/Vol] 32.0 mg/dL Critically high 7.0-18.0 [facility] Comment on above: Performed By: #### C ALISTAIR, TSH ####[facility] Qbuzmjrzjv6912 [place] [phone]. Bhavani Camargo Urea nitrogen/Creatinine [Mass ratio] 22.2 mg/mg Normal [facility] Comment on above: Performed By: #### C ALISTAIR, TSH ####[facility] Qymjpajxev4346 [place] [phone]. Bhavani Camargo TSHon 03-01-2023 TSH 3.630 uIU/mL Normal 0.358-3.740 [facility] Comment on above: Performed By: #### C MP, TSH ####[facility] Ntdfniwuaz0717 [place] [phone]. Bhavani Camargo CULTURE URINEon 02-09-2023 CULTURE URINE Normal [facility] Comment on above: Performed By: #### U RCX ####[facility] Oeifvmwjpx1102 [place] [address]Dr. Bhavani Camargo CBC W MANUAL DIFFon 02-07-20 23 ANISOCYTOSIS 1+ Normal [facility] Comment on above: Performed By: #### C OMID ####[facility] Eikeziyjub8925 [place] [address]Dr. Bhavani Camargo ATYPICAL LYMPH # Normal [facility] Comment on above: Performed By: #### C BCJERSON ####[facility] Xupfqnzlad6278 [place] [address]Dr. Bhavani Camargo ATYPICAL LYMPH % Normal [facility] Comment on above: Performed By: #### C BCJERSON ####[facility] Qsvsbywjls[address] [place], [place] [address]Dr. Bhavani Camargo BAND # 1.2 103/ul Critically high 0.0-0.3 [facility] Comment on above: Performed By: #### C BCJERSON ####[facility] [address]bcduje[address] [place], [place] [address]Dr. Bhavani Camargo BAND % 5 % Normal 0-5 [facility] Comment on above: Performed By: #### C BCJERSON ####[facility] Xnrzljsden[address] [place], [place] [address]Dr. Bhavani Camargo BASOM # 0.00 103/ul Normal 0.00-0.10 [facility] [facility] Comment on above: Performed By: #### C BCJERSON ####[facility] [address] [place], [place] [address]Dr. Bhavani Camargo BASOM % 0.0 % Critically low 0.2-2.0 [facility] Comment on above: Performed By: #### C BCMAN ####[facility] Gofslfyafm[address] [place], [place] [address]Dr. Bhavani Camargo BLAST # Normal [facility] Comment on above: Performed By: #### C BCJERSON ####[facility] [address] [place], [place] [address]Dr. Bhavani Camargo BLAST % Normal [facility] Comment on above: Performed By: #### C OMID ####[facility] Zzxzzoxrma2916 [place] [id number]. Bhavani Camargo CORRECTED WBC Normal 4.0-11.0 The [facility] Comment on above: Performed By: #### C OMID ####[facility] Ebbjgiwaak9208 [place], [place] [address]Qf. Bhavani Camargo EOS # 0.00 103/ul Normal 0.00-0.70 [facility] Comment on above: Performed By: #### C OMID ####[facility] Oqbwrttsyn0222 [place] [id number]. Bhavani Camargo EOS% 0.0 % Critically low 0.9-7.0 [facility] Comment on above: Performed By: #### C OMID ####[facility] Hqcmzoztvw6901 [place] [phone]. Bhavani Camargo HCT 39.3 % Normal 36.0-48.0 [facility] Comment on above: Performed By: #### C OMID ####[facility] Skfcameneh0393 [place] [phone]. Bhavani Camargo HGB 12.6 g/dl Normal 12.0-16.0 [facility] Comment on above: Performed By: #### C OMID ####[facility] Y[address]ef[address] [place], [place] [address]Dr. Bhavani Camargo LYMPHM # 2.11 103/ul Normal 1.20-3.80 [facility] Comment on above: Performed By: #### C OMID ####[facility] Oyeuwkgwws[address] [place], [place] [address]Dr. Bhavani Camargo LYMPHM% 9.0 % Critically low 20.5-60.0 [facility] Comment on above: Performed By: #### C OMID ####[facility] Nvufcidjky9782 [place] [phone]. Bhavani Camargo MCH 29.6 pg Normal 26.7-34.0 [facility] Comment on above: Performed By: #### C OMID ####[facility] Tjvdsfkxva1632 [place] [phone]. Bhavani Camargo MCHC 32.1 g/dl Normal 29.9-35.2 [facility] Comment on above: Performed By: #### C OMID ####[facility] Jlixqbdker0475 [place] [phone]. Bhavani Camargo MCV 92.3 fL Normal 81.0-99.0 [facility] Comment on above: Performed By: #### C OMID ####[facility] Ehlugfzbgx3554 [place] [phone]. Bhavani Camargo METAMYELOCYTE # Normal [facility] Comment on above: Performed By: #### C OMID ####[facility] Scfpuwgwrq[address] [place], [place] [address]Dr. Bhavani Camargo METAMYELOCYTE % Normal [facility] Comment on above: Performed By: #### C OMID ####[facility] Kldiejkqlk125[address] [place], [place] [address]Dr. Bhavani Camargo MONOM# 0.94 103/ul Critically high 0.30-0.80 [facility] Comment on above: Performed By: #### C OMID ####[facility] M[address]nvaqtsg[address] [place], [place] [address]Dr. Bhavani Camargo MONOM% 4.0 % Normal 1.7-12.0 [facility] Comment on above: Performed By: #### C OMID ####[facility] Ehljwdyyku[address] [place], [place] [address]Dr. Bhavani Camargo MPV 11.0 fL Normal 9.5-13.5 [facility] Comment on above: Performed By: #### C OMID ####[facility] Iwnejmokji[address] [place], [place] [address]Dr. Bhavani Camargo MYELOCYTE # Normal [facility] Comment on above: Performed By: #### C OMID ####[facility] Flkgorpiso[address] [place], [place] [address]Dr. Bhavani Camargo MYELOCYTE % Normal [facility] Comment on above: Performed By: #### C OMID ####[facility] Eptovjvegm9982 [place], [place] [address]Dl. Bhavani Camargo NRBC Normal [facility] Comment on above: Performed By: #### C OMID ####[facility] Aacfpujdkw6167 [place], [place] [address]Ax. Bhavani Camargo PLT 198 103/ul Normal 150-450 [facility] Comment on above: Performed By: #### C OMID ####[facility] Mjczxdawhq5256 [place], [place] [address]Ui. Bhavani Camargo RBC 4.26 106/ul Normal 4.20-5.40 [facility] Comment on above: Performed By: #### C OMID ####[facility] Krsifgpoyj3992 [place] [phone]. Bhavani Camargo RDW 16.3 % Critically high 11.0-15.0 [facility] Comment on above: Performed By: #### C OMID ####[facility] Ldqxglimcu3776 [place] [phone]. Bhavani Camargo SEG # 19.19 103/ul Critically high 1.40-6.50 [facility] Comment on above: Performed By: #### C OMID ####[facility] Tkfwbbjetd3557 [place] [phone]. Bhavani Camargo SEG % 82.0 % Critically high 43.0-75.0 [facility] Comment on above: Performed By: #### C OMID ####[facility] Unfativmsq3861 [place] [phone]. Bhavani Camargo WBC 23.4 103/ul Critically high 4.0-11.0 [facility] Comment on above: Performed By: #### C OMID ####[facility] Kfmuiqxxxt1520 [place] [phone]. Bhavani Camargo CT LSPINE WO CONon 3 CT LSPINE WO CON Normal [facility] CT PELVIS WO CONon 3 CT PELVIS WO CON Normal [facility] CULTURE BLOODon 02-06-2023 Microscopic examination of blood, culture Culture Observations: NO GROWTH AT 5 DAYS. Normal [facility] Comment on above: Performed By: #### B LDCX2 ####[facility] Ngvrkhaabo9528 [place] [address]Dr. Bhavani Camargo Performed By: #### B LDCX1 ####[facility] Jlkkkezyir14[address] [place] [address]Dr. Bhavani Camargo Covid-19 PCR (CVDTB)on 01-17 SARS-CoV-2 (COVID-19) RNA MATTHEW+probe Ql (Unsp spec) Not detected Normal NOT DETECTED [facility] Comment on above: Result Comment: When [...] for this test is supported by the [place] of Health and Human Service's declaration that [...] be used). Performed By: #### C VDTBH ####[facility] Dwvwhngtod[address] [place], [place] [address]Dr. Bhavani Camargo ER URINE PROFILEon 3 Bilirubin Ql (U) Negative Normal NEGATIVE [facility] Comment on above: Performed By: #### U MICRO, ERUR ####[facility] Zovpdixgit[address] [place], [place] [address]Dr. Bhavani Camargo Clarity (U) SL CLOUDY Abnormal CLEAR [facility] Comment on above: Performed By: #### U MICRO, ERUR ####[facility] Cu[address]wqxlz06[address] [place], [place] [address]Dr. Bhavani Camargo Color (U) LT. YELLOW Normal YELLOW [facility] Comment on above: Performed By: #### U MICRO, ERUR ####[facility] Esfqwvqdir[address] [place], [place] [address]Dr. Bhavani FERMIN A micrscopic examination will be performed if indicated. Normal [facility] Comment on above: Performed By: #### U MICRO, ERUR ####[facility] Xpzrcoscem0784 [place] [address]Dr. Bhavani Camargo Glucose Ql (U) Negative Normal NEGATIVE [facility] Comment on above: Performed By: #### U MICRO, ERUR ####[facility] Oszytcanwk[address] [place], [place] [address]Dr. Bhavani Camargo Hemoglobin Ql (U) TRACE-INTACT Abnormal NEGATIVE [facility] Comment on above: Performed By: #### U MICRO, ERUR ####[facility] Gzxlfevimk[address] [place], [place] [address]Dr. Bhavani Camargo Ketones Ql (U) Negative Normal NEGATIVE [facility] Comment on above: Performed By: #### U MICRO, ERUR ####[facility] Mi[address]crtomu[address] [place], [place] [address]Dr. Bhavani Camargo LEUKOCYTES SMALL Abnormal NEGATIVE [facility] Comment on above: Performed By: #### U MICRO, ERUR ####[facility] Tsqzpwzovg[address] [place], [place] [address]Dr. Bhavani Camargo Nitrite Ql (U) Positive Abnormal NEGATIVE [facility] Comment on above: Performed By: #### U MICRO, ERUR ####[facility] Tobjlirsyf[address] [place], [place] [address]Dr. Bhavani Camargo pH (U) 6.0 [pH] Normal 5-9 [facility] Comment on above: Performed By: #### U MICRO, ERUR ####[facility] Wpcjc[address]atfz[address] [place], [place] [address]Dr. Bhavani Camargo Protein (U) [Mass/Vol] 30 mg/dL Abnormal NEGATIVE/ TRACE [facility] Comment on above: Performed By: #### U MICRO, ERUR ####[facility] Qhxiigbynw[address] [place], [place] [address]Dr. Bhavani Camargo SPEC GRAVITY 1.020 Normal 1.005-<=1.02 5 [facility] Comment on above: Performed By: #### U MICRO, ERUR ####[facility] Cnienbgyya[address] [place] [address]Dr. Bhavani Camargo UR MICRO IND INDICATED Normal [facility] Comment on above: Performed By: #### U MICRO, ERUR ####[facility] Jjlnxkjlde7362 [place] [address]Dr. Bhavani Camargo Urobilinogen Qn (U) 0.2 {Ridge'U}/dL Normal 0.2 - 1. 0 [facility] Comment on above: Performed By: #### U MICRO, ERUR ####[facility] J[address]emahvva[address] [place], [place] [address]Dr. Bhavani Camargo LACTATE/LACTIC ACIDon 2022 Lactate [Moles/Vol] 1.5 mmol/L Normal 0.4-2.0 [facility] Comment on above: Performed By: #### L ACT ####[facility] [address]fphtwz[address] [place], [place] [address]Dr. Bhavani Camargo PROF CHEM 8 (BAS METB)on Anion gap [Moles/Vol] 14.7 mmol/L Normal [facility] Comment on above: Performed By: #### B MP ####[facility] Ehxsoemuzs87[address] [place] [address]Dr. Bhavani Camargo Calcium [Mass/Vol] 8.2 mg/dL Critically low 8.5-10.1 [facility] Comment on above: Performed By: #### B MP ####[facility] Rxzsyvvdkh2752 [place] [address]Dr. Bhavani Camargo Chloride [Moles/Vol] 103 mmol/L Normal 98-107 [facility] Comment on above: Performed By: #### B MP ####[facility] Zydtzdpygc1437 [place] [address]Dr. Bhavani Camargo CO2 [Moles/Vol] 22.4 mmol/L Normal 21.0-32.0 [facility] Comment on above: Performed By: #### B MP ####[facility] Vmuzlswkdt8978 [place] [address]Dr. Bhavani Camargo Creatinine [Mass/Vol] 1.39 mg/dL Critically high 0.55-1.02 [facility] Comment on above: Performed By: #### B MP ####[facility] Bintvozvni6823 [place] [address]Dr. Bhavani Camargo EGFR-AF MALAYSIAN 44 mL/min/1.73m2 Critically low >=60 [facility] Comment on above: Performed By: #### B MP ####[facility] Urosrtdehx[address] [place], [place] [address]Dr. Bhavani Camargo EGFR-NON AF MALAYSIAN 36 mL/min/1.73m2 Critically low >=60 [facility] Comment on above: Performed By: #### B MP ####[facility] X[address]qfqkkqpq[address] [place], [place] [address]Dr. Bhavani Camargo Glucose [Mass/Vol] 161 mg/dL Critically high 74-106 [facility] Comment on above: Performed By: #### B MP ####[facility] Paxdxpsyrk[address] [place], [place] [address]Dr. Bhavani Laurel Potassium [Moles/Vol] 4.1 mmol/L Normal 3.5-5.1 [facility] Comment on above: Performed By: #### B MP ####[facility] Ajdwqvhkhw[address] [place], [place] [address]Dr. Bhavani Laurel Sodium [Moles/Vol] 136 mmol/L Normal 136-145 [facility] Comment on above: Performed By: #### B MP ####[facility] Zbidnrxedl[address] [place], [place] [address]Dr. Bhavani Camargo Urea nitrogen [Mass/Vol] 23.0 mg/dL Critically high 7.0-18.0 [facility] Comment on above: Performed By: #### B MP ####[facility] [address]iboozadga[address] [place], [place] [address]Dr. Bhavani Camargo Urea nitrogen/Creatinine [Mass ratio] 16.5 mg/mg Normal [facility] Comment on above: Performed By: #### B MP ####[facility] Uvufwkesmf[address] [place] [address]Dr. Bhavani Camargo PROTIMEon 02-06-2023 INR Coag (PPP) [Relative time] 1.12 {INR} Normal [facility] Comment on above: Performed By: #### P TT, PT ####[facility] Itzcktrthf16[address] [place] [address]Dr. Bhavani Camargo INR GUIDELINES SEE BELOW Normal [facility] Comment on above: Result Comment: WALKER RED INR: 2.0 - 3.0 CONDITIONS NOT LISTED BELOW 2.5 - 3.5 FOR PROSTHETIC HEART VALVE REPLACEMENT 2.5 - 3.5 RECURRENT THROMBOSIS Performed By: #### P TT, PT ####[facility] [address] [place], [place] [address]Dr. Bhavani Camargo PT Coag (PPP) [Time] 11.8 s Critically high 9.0-11.6 [facility] Comment on above: Performed By: #### P TT, PT ####[facility] [address]df[address]wrsw[address] [place], [place] [address]Dr. Bhavani Camargo PTTon 02-06-2023 aPTT Coag (Bld) [Time] 23.8 s Normal 22.3-36.2 [facility] Comment on above: Performed By: #### P TT, PT ####[facility] Odohcqqgla38[address] [place] [address]Dr. Bhavani Camargo URINE MICROSCOPIC ONLYon BACTERIA LARGE Abnormal NONE SEEN [facility] Comment on above: Performed By: #### U MICRO, ERUR ####[facility] Mlmssanjgf4[address] [place] [address]Dr. Bhavani Camargo Bacteria identified Cx Nom (U) INDICATED Normal [facility] Comment on above: Performed By: #### U MICRO, ERUR ####[facility] Vqmefmtmpp6806 [place] [address]Dr. Bhavani Camargo CAST NONE SEEN Normal NONE SEEN [facility] Comment on above: Performed By: #### U MICRO, ERUR ####[facility] Lrocqvmvni216[address] [place] [address]Dr. Bhavani Camargo Crystals LM Nom (Urine sed) NONE SEEN Normal NONE SEEN [facility] Comment on above: Performed By: #### U MICRO, ERUR ####[facility] Aronrzjrex3755 [place] [address]Dr. Bhavani Camargo Epithelial cells LM Ql (Urine sed) RARE Normal NONE SEEN /RARE [facility] Comment on above: Performed By: #### U MICRO, ERUR ####[facility] Trxmpvuayl9614 [place] [id number]. Bhavani Camargo MUCOUS NONE SEEN Normal NONE SEEN [facility] Comment on above: Performed By: #### U MICRO, ERUR ####[facility] Xxdsnmhyxq5891 [place] [address]Dr. Bhavani Camargo RBC 0-2 Normal 0-2 [facility] Comment on above: Performed By: #### U MICRO, ERUR ####[facility] Vvduogbibe1259 [place] [address]Dr. Bhavani Camargo WBC 10-20 Abnormal NONE SEEN [facility] Comment on above: Performed By: #### U MICRO, ERUR ####[facility] Bkxwgcvgtj0639 [place] [address]Dr. Bhavani Camargo XR CHEST 1 Von 02-06-2023 XR CHEST 1 V Normal [facility] XR FEMUR RTon 02-06-2023 XR FEMUR RT Normal [facility] Orders Onlyon 01-22-2023 Orders Only [id number] Jennifer Tafoya 1940 F Date Provider Department [facility]. Family History Problem Relation Age of Onset Diabetes Sister Diabetes Brother Diabetes Maternal Grandfather Family Status - Relation Status Age at Sister Brother Maternal Grandfather Normal [facility] CBC AUTO DIFFon 01-18-2023 BASO # 0.1 103/ul Normal 0.0-0.1 [facility] Comment on above: Performed By: #### C BC ####[facility] Egyvdcxdjh5[address] [place] [address]Dr. Bhavani Camargo Basophils/100 WBC (Bld) 0.7 % Normal 0.2-2.0 [facility] Comment on above: Performed By: #### C BC ####[facility] Cclauqgqwn[address] [place], [place] [address]Dr. Bhavani Camargo EO # 0.0 103/ul Normal 0.0-0.7 [facility] Comment on above: Performed By: #### C BC ####[facility] Elqqdyvepg[address] [place], [place] [address]Dr. Bhavani Camargo Eosinophils/100 WBC (Bld) 0.2 % Critically low 0.9-7.0 [facility] Comment on above: Performed By: #### C BC ####[facility] Negheanzil[address] [place], [place] [address]Dr. Bhavani Camargo Erythrocyte distribution width (RBC) [Ratio] 16.4 % Critically high 11.0-15.0 [facility] Comment on above: Performed By: #### C BC ####[facility] Owskwkhwfn[address] [place], [place] [address]Dr. Bhavani Camargo Hematocrit (Bld) [Volume fraction] 41.5 % Normal 36.0-48.0 [facility] Comment on above: Performed By: #### C BC ####[facility] Wzeclzxxni[address] [place], [place] [address]Dr. Bhavani Camargo Hemoglobin (Bld) [Mass/Vol] 13.0 g/dL Normal 12.0-16.0 [facility] Comment on above: Performed By: #### C BC ####[facility] Z[address]pekcyzf[address] [place], [place] [address]Dr. Bhavani Camargo IG # 0.24 10e3/ul Critically high 0.00-0.03 [facility] Comment on above: Performed By: #### C BC ####[facility] [address]sztqumnef[address] [place], [place] [address]Dr. Bhavani Camargo IG % 1.3 % Critically high 0.0-0.5 [facility] Comment on above: Performed By: #### C BC ####[facility] [address]jgigzfv[address] [place], [place] [address]Dr. Bhavani Laurel LYMPH # 1.5 103/ul Normal 1.2-3.8 [facility] Comment on above: Performed By: #### C BC ####[facility] Ykbopgndev3563 [place] [address]Dr. Bhavani Laurel Lymphocytes/100 WBC (Bld) 8.1 % Critically low 20.5-60.0 [facility] Comment on above: Performed By: #### C BC ####[facility] Udnidqgbeh2308 [place] [address]Dr. Bhavani Camargo MANUAL DIFF REQ NO Normal [facility] Comment on above: Performed By: #### C BC ####[facility] Dsoljyawlk4460 [place] [address]Dr. Bhvaani Laurel MCH (RBC) [Entitic mass] 28.9 pg Normal 26.7-34.0 [facility] Comment on above: Performed By: #### C BC ####[facility] Dzsloofbmn9664 [place] [address]Dr. Bhavani Laurel MCHC (RBC) [Mass/Vol] 31.3 g/dL Normal 29.9-35.2 [facility] Comment on above: Performed By: #### C BC ####[facility] Qhphyvpkjq7139 [place] [address]Dr. Bhavani Camargo MCV (RBC) [Entitic vol] 92.2 fL Normal 81.0-99.0 [facility] Comment on above: Performed By: #### C BC ####[facility] Bmmlvmhuvm5056 [place] [address]Dr. Bhavani Camargo MONO # 0.2 103/ul Critically low 0.3-0.8 [facility] Comment on above: Performed By: #### C BC ####[facility] Asjeileulb24[address] [place] [address]Dr. Bhavani Camargo Monocytes/100 WBC (Bld) 1.3 % Critically low 1.7-12.0 [facility] Comment on above: Performed By: #### C BC ####[facility] Ptcdmbxhag5631 [place] [id number]. Bhavani Camargo NEUT # 16.0 103/ul Critically high 1.4-6.5 [facility] Comment on above: Performed By: #### C BC ####[facility] Tmvkqcyuey8102 [place] [address]Dr. Bhavani Camargo Neutrophils/100 WBC (Bld) 88.4 % Critically high 43.0-75.0 [facility] Comment on above: Performed By: #### C BC ####[facility] Ktytdtgoul9822 [place] [address]Dr. Bhavani Camargo Platelet mean volume (Bld) [Entitic vol] 12.1 fL Normal 9.5-13.5 [facility] Comment on above: Performed By: #### C BC ####[facility] Bxirnfcdbh2302 [place] [address]Dr. Bhavani Camargo PLT 170 103/ul Normal 150-450 [facility] Comment on above: Performed By: #### C BC ####[facility] Xroyajyiji5960 [place] [address]Dr. Bhavani Camargo RBC 4.50 106/ul Normal 4.20-5.40 [facility] Comment on above: Performed By: #### C BC ####[facility] Jrhvfklxys5975 [place] [address]Dr. Bhavani Camargo WBC 18.1 103/ul Critically high 4.0-11.0 [facility] Comment on above: Performed By: #### C BC ####[facility] Lnxohatmfs40[address] [place] [address]Dr. Bhavani Camargo ECHOCARDIO M/2D COMPLETEon 0 01-18-2023 ECHOCARDIO M/2D COMPLETE Normal [facility] Office Visiton 12-25-2022 Follow-up visit [id number] Jennifer Tafoya 1940 F Date Provider Department Center 12/25/2022 [facility] Family History Problem Relation Age of Onset Diabetes Sister Diabetes Brother Diabetes Maternal Grandfather Family Status - Relation Status Age at Sister Brother Maternal Grandfather Level of Service:04345 [place] OFFICE/OUTPATIENT ESTABLISHED MOD MDM 30-39 MIN Reason for Visit and Comments: Atrial Fibrillation [80] Normal [facility] Endoscopy Reporton Endoscopy Report MR#: [id number] [facility] Pt. Name: María Elena Tafoya Surgery Date: 06/26/2022 Room #: Date of : 1940 PROCEDURE NOTE ATTENDING: [...] Barillas M.D. Date Trans: 06/27/2022 03:26 A/erik [id number] cc: Bennie Albright M.D. [address], [facility] [place] [address] Roy [facility] ABDOMEN 1 on 06-26-2022 ABDOMEN 1 [facility] Department of Radiology [address] [place] [id number] ======== Patient Name: MARÍA ELENA TAFOYA [...] identified. Electronically signed: Roge Bah. Transcribed by: [email or web address], User Resident: Electronically Signed by: ROGE BAH @ 06/26/2022 11:52 AM Normal [facility] Comment on above: Order Comment: Check Stent Position, NO ERCPon 06-26-2022 ERCP [facility] Department of Radiology [address] [place] [id number] ======== Patient Name: MARÍA ELENA TAFOYA : 1940 Sex: F Age: Race: White Pt. 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 Electronically signed: FARSHAD SILVA. Transcribed by: [email or web address], User Resident: Electronically Signed by: FARSHAD SILVA @ 06/27/2022 09:15 AM Normal [facility] Comment on above: Order Comment: , [place] ointment Date: 06/26/2022 , Appointment Time: 101 , Appointment Date: 06/26/2022 , Appointment Time: 101 , , , Ordering Provider - ELIU BRAUN MD , POC GLUCOSE LABon 06-26-2022 Glucose [Mass/Vol] 121 mg/dL High 70-100 [facility] Comment on above: Performed By: #### [id number] #### [facility] [address] [place] [address], [place] Glucose [Mass/Vol] 116 mg/dL High 70-100 [facility] Comment on above: Performed By: #### 8 [id number] #### [facility] [address] [place] [address], [place] POC SARS COV2 IDon 2 SARS-CoV-2 (COVID-19) RNA MATTHEW+probe Ql (Unsp spec) Negative Normal NEGATIVE [facility] Comment on above: Result Comment: ID [...] Accreditation. Performed By: #### 8 [id number] #### [facility] [address] [facility] [place] [address], [facility] XR MODIFIED BARIUM SWALLOWon 05-08-2022 XR MODIFIED BARIUM SWALLOW Normal [facility] POC GLUCOSE LABon 04-16-2022 Glucose [Mass/Vol] 103 mg/dL High 70-100 The [facility] Comment on above: Performed By: #### 8 [id number] ####[facility] [facility] [place] [address], [facility] POC GLUCOSE LABon 04-15-2022 Glucose [Mass/Vol] 112 mg/dL High 70-100 [facility] Comment on above: Performed By: #### 8 [id number] #### [facility] [address] [facility] [place] [address], [facility] Glucose [Mass/Vol] 131 mg/dL High 70-100 The [facility] Comment on above: Performed By: #### 8 [id number] #### [facility] [address] [facility] [place] [address], [place] Glucose [Mass/Vol] 122 mg/dL High 70-100 The [facility] Comment on above: Performed By: #### 5 [id number] #### [facility] [address] [place] [address], [place] Glucose [Mass/Vol] 118 mg/dL High 70-100 The [facility] Comment on above: Performed By: #### 8 [id number] #### [facility] [address] [place] [address], [facility] BASIC METABOLIC PANELon 05-2 Calcium [Mass/Vol] 8.1 mg/dL Low 8.6-10.3 The [facility] Comment on above: Order Comment: No: D o not add to previous draw Performed By: #### 2 2706 #### [facility] [address] [place] [address], [place] Chloride [Moles/Vol] 104 mmol/L Normal 98-107 The [facility] Comment on above: Order Comment: No: D o not add to previous draw Performed By: #### 2 2706 #### [facility] [address] [place] [address], [place] CO2 [Moles/Vol] 27 mmol/L Normal 21-31 The [facility] Comment on above: Order Comment: No: D o not add to previous draw Performed By: #### 2 2706 #### [facility] [address] [place] [address], [place] Creatinine [Mass/Vol] 1.34 mg/dL High 0.60-1.20 [facility] Comment on above: Order Comment: No: D o not add to previous draw Performed By: #### 2 2706 #### [facility] [address] [place] [address], [place] eGFR- 46 ml/min/1.73sq m Abnormal >60 The [facility] Comment on above: Order Comment: No: D o not add to previous draw Result Comment: Calc ulation may not be valid for patients over 70 years Performed By: #### 2 2706 #### [facility] [address] [place] [address], [facility] eGFR- non- 38 ml/min/1.73sq m Abnormal >60 [facility] Comment on above: Order Comment: No: D o not add to previous draw Result Comment: Calc ulation may not be valid for patients over 70 years Performed By: #### 2 2706 #### [facility] [address] [place] [address], [place] Glucose [Mass/Vol] 106 mg/dL High 70-100 The [facility] Comment on above: Order Comment: No: D o not add to previous draw Performed By: #### 2 2706 #### [facility] [address] [place] [address], [place] Potassium [Moles/Vol] 4.9 mmol/L Normal 3.5-5.1 [facility] Comment on above: Order Comment: No: D o not add to previous draw Performed By: #### 2 2706 #### [facility] [address] [place] [address], [place] Sodium [Moles/Vol] 135 mmol/L Low 136-145 The [facility] Comment on above: Order Comment: No: D o not add to previous draw Performed By: #### 2 2706 #### [facility] [address] [place] [address], [place] Urea nitrogen [Mass/Vol] 22 mg/dL Normal 7-25 The [facility] Comment on above: Order Comment: No: D o not add to previous draw Performed By: #### 2 2706 #### [facility] [address] [place] [address], [place] CBC COMPLETE BLOOD COUNTon 04-14-2022 Erythrocyte distribution width (RBC) [Ratio] 20.9 % High 11.5-15.0 The [facility] Comment on above: Order Comment: No: D o not add to previous draw Performed By: #### 8 5499 #### [facility] [address] [place] [address], [facility] Hematocrit (Bld) [Volume fraction] 27.5 % Low 36.0-45.0 The [facility] Comment on above: Order Comment: No: D o not add to previous draw Performed By: #### 8 5499 #### [facility] [address] [place] [address], [facility] Hemoglobin (Bld) [Mass/Vol] 8.5 g/dL Low 12.0-15.0 The [facility] Comment on above: Order Comment: No: D o not add to previous draw Performed By: #### 8 5499 #### [facility] [address] [facility] [place] [id number], [facility] IMM PLATELET FRAC 10.2 % High 0.8-6.3 The [facility] Comment on above: Order Comment: No: D o not add to previous draw Performed By: #### 8 5499 #### [facility] [address] [facility] [place] [id number], [facility] MCH (RBC) [Entitic mass] 31.1 pg Normal 27.0-33.0 [facility] Comment on above: Order Comment: No: D o not add to previous draw Performed By: #### 8 5499 #### [facility] [address] [place] [address], [facility] MCHC (RBC) [Mass/Vol] 30.9 g/dL Low 32.0-35.0 [facility] Comment on above: Order Comment: No: D o not add to previous draw Performed By: #### 8 5499 #### [facility] [address] [place] [id number], [facility] MCV (RBC) [Entitic vol] 100.7 fL High 82.0-98.0 [facility] Comment on above: Order Comment: No: D o not add to previous draw Performed By: #### 8 5499 #### [facility] [address] [place] [address], [facility] Nucleated RBC/100 WBC (Bld) [Ratio] 0 % Normal 0-0 [facility] Comment on above: Order Comment: No: D o not add to previous draw Performed By: #### 8 5499 #### [facility] [address] [place] [address], [place] PLAT ESTIMATE Normal Normal The [facility] Comment on above: Order Comment: No: D o not add to previous draw Result Comment: EDTA smear shows platelet clumping, see platelet estimate Performed By: #### 8 5499 #### [facility] [address] [place] [address], [facility] RBC (Bld) [#/Vol] 2.73 10*6/uL Low 3.80-5.00 The [facility] Comment on above: Order Comment: No: D o not add to previous draw Performed By: #### 8 5499 #### [facility] [address] [place] [address], [facility] WBC (Bld) [#/Vol] 19.62 10*3/uL High 4.00-10.60 [facility] Comment on above: Order Comment: No: D o not add to previous draw Performed By: #### 8 5499 #### [facility] [address] [place] [address], [place] MAGNESIUM BLOODon 04-14-2022 Magnesium [Mass/Vol] 1.9 mg/dL Normal 1.9-2.7 [facility] Comment on above: Order Comment: No: D o not add to previous draw Performed By: #### 2 2706 #### [facility] [address] [place] [address], [place] POC GLUCOSE LABon 04-14-2022 Glucose [Mass/Vol] 117 mg/dL High 70-100 The [facility] Comment on above: Performed By: #### 3 0313 #### [facility] [address] [place] [address], [place] Glucose [Mass/Vol] 119 mg/dL High 70-100 The [facility] Comment on above: Performed By: #### 8 5499 #### [facility] [address] [place] [address], [place] Glucose [Mass/Vol] 113 mg/dL High 70-100 The [facility] Comment on above: Performed By: #### 8 5499 #### [facility] [address] [place] [address], [place] Glucose [Mass/Vol] 112 mg/dL High 70-100 The [facility] Comment on above: Performed By: #### 8 5499 #### [facility] [address] [place] [address], [place] BASIC METABOLIC PANELon 03-19 Calcium [Mass/Vol] 8.4 mg/dL Low 8.6-10.3 The [facility] Comment on above: Order Comment: Bleed , altereed mental status Performed By: #### 4 1000, 57545, 68758 ####[facility] [place] [address], [place] Chloride [Moles/Vol] 105 mmol/L Normal 98-107 [facility] Comment on above: Order Comment: Bleed , altereed mental status Performed By: #### 4 1000, , 29529 ####[facility] [place] [address], [place] CO2 [Moles/Vol] 24 mmol/L Normal 21-31 The [facility] Comment on above: Order Comment: Bleed , altereed mental status Performed By: #### 4 1000, , 43652 ####[facility] [place] [address], [place] Creatinine [Mass/Vol] 1.31 mg/dL High 0.60-1.20 [facility] Comment on above: Order Comment: Bleed , altereed mental status Performed By: #### 4 1000, , 96675 ####[facility] [place] [address], [facility] eGFR- 47 ml/min/1.73sq m Abnormal >60 [facility] Comment on above: Order Comment: Bleed , altereed mental status Result Comment: Calc ulation may not be valid for patients over 70 years Performed By: #### 4 1000, , 26846 ####[facility] [place] [address], [facility] eGFR- non- 39 ml/min/1.73sq m Abnormal >60 [facility] Comment on above: Order Comment: Bleed , altereed mental status Result Comment: Calc ulation may not be valid for patients over 70 years Performed By: #### 4 1000, , 16069 ####[facility] [place] [address], [place] Glucose [Mass/Vol] 85 mg/dL Normal 70-100 The [facility] Comment on above: Order Comment: Bleed , altereed mental status Performed By: #### 4 1000, , 44064 ####[facility] [place] [address], [place] Potassium [Moles/Vol] 5.2 mmol/L High 3.5-5.1 [facility] Comment on above: Order Comment: Bleed , altereed mental status Performed By: #### 4 1000, , 55633 ####[facility] [place] [address], [place] Sodium [Moles/Vol] 137 mmol/L Normal 136-145 The [facility] Comment on above: Order Comment: Bleed , altereed mental status Performed By: #### 4 1000, 55129, 73941 ####[facility] [place] [address], [facility] Urea nitrogen [Mass/Vol] 21 mg/dL Normal 7-25 The [facility] Comment on above: Order Comment: Bleed , altereed mental status Performed By: #### 4 1000, 06943, 46871 ####[facility] [address], [facility] CBC COMPLETE BLOOD COUNTon 04-13-2022 Erythrocyte distribution width (RBC) [Ratio] 20.4 % High 11.5-15.0 The [facility] Comment on above: Order Comment: No: D o not add to previous draw Performed By: #### 8 5499 #### [facility] [address] [place] [id number], [facility] Hematocrit (Bld) [Volume fraction] 29.2 % Low 36.0-45.0 [facility] Comment on above: Order Comment: No: D o not add to previous draw Performed By: #### 8 2689 #### [facility] [address] [place] [address], [facility] Hemoglobin (Bld) [Mass/Vol] 9.0 g/dL Low 12.0-15.0 [facility] Comment on above: Order Comment: No: D o not add to previous draw Performed By: #### 8 5499 #### [facility] [address] [place] [address], [place] MCH (RBC) [Entitic mass] 31.0 pg Normal 27.0-33.0 [facility] Comment on above: Order Comment: No: D o not add to previous draw Performed By: #### 8 5499 #### [facility] [address] [place] [address], [place] MCHC (RBC) [Mass/Vol] 30.8 g/dL Low 32.0-35.0 [facility] Comment on above: Order Comment: No: D o not add to previous draw Performed By: #### 8 5499 #### [facility] [address] [place] [address], [facility] MCV (RBC) [Entitic vol] 100.7 fL High 82.0-98.0 [facility] Comment on above: Order Comment: No: D o not add to previous draw Performed By: #### 8 5499 #### [facility] [address] [place] [address], [facility] Nucleated RBC/100 WBC (Bld) [Ratio] 0 % Normal 0-0 [facility] Comment on above: Order Comment: No: D o not add to previous draw Performed By: #### 8 5499 #### [facility] [address] [facility] [place] [address], [facility] PLAT CNT 148 10*3/uL Low 150-400 [facility] Comment on above: Order Comment: No: D o not add to previous draw Performed By: #### 8 5499 #### [facility] [address] [place] [address], [facility] RBC (Bld) [#/Vol] 2.90 10*6/uL Low 3.80-5.00 The [facility] Comment on above: Order Comment: No: D o not add to previous draw Performed By: #### 8 5499 #### [facility] [address] [place] [id number], [facility] WBC (Bld) [#/Vol] 22.15 10*3/uL High 4.00-10.60 [facility] Comment on above: Order Comment: No: D o not add to previous draw Performed By: #### 8 5499 #### [facility] [address] [place] [address], [facility] MAGNESIUM BLOODon 04-13-2022 Magnesium [Mass/Vol] 1.7 mg/dL Low 1.9-2.7 [facility] Comment on above: Order Comment: Bleed , altereed mental status Performed By: #### 4 1000, 23912, 17647 ####[facility] [place] [address], [facility] PHOSPHORUS BLOODon Phosphate [Mass/Vol] 4.7 mg/dL Normal 2.5-5.0 [facility] Comment on above: Order Comment: Bleed , altereed mental status Performed By: #### 4 1000, 93174, 51061 ####[facility] [place] [address], [place] POC GLUCOSE LABon 04-13-2022 Glucose [Mass/Vol] 119 mg/dL High 70-100 [facility] above: Performed By: #### 8 5499 #### [facility] [address] [place] [address], [place] Glucose [Mass/Vol] 116 mg/dL High 70-100 [facility] Comment on above: Performed By: #### 8 5499 #### [facility] [address] [place] [address], [place] Glucose [Mass/Vol] 129 mg/dL High 70-100 [facility] Comment on above: Performed By: #### 8 5499 #### [facility] [address] [place] [address], [place] Glucose [Mass/Vol] 109 mg/dL High 70-100 [facility] Comment on above: Performed By: #### 8 5499 ####[facility] [place] [address], [place] POTASSIUM BLOODon 04-13-2022 Potassium [Moles/Vol] 4.7 mmol/L Normal 3.5-5.1 [facility] Comment on above: Order Comment: No: D o not add to previous draw Performed By: #### 2 2706 #### [facility] [address] [place] [address], [facility] BASIC METABOLIC PANELon 05-2 Calcium [Mass/Vol] 8.5 mg/dL Low 8.6-10.[address] [facility] Comment on above: Order Comment: Bleed , altereed mental status Performed By: #### 1 0070, 60547, 95918 ####[facility] [place] [address], [facility] Chloride [Moles/Vol] 106 mmol/L Normal 98-107 [facility] Comment on above: Order Comment: Bleed , altereed mental status Performed By: #### 1 0, 14029, 23226 ####[facility] [place] [address], [facility] CO2 [Moles/Vol] 24 mmol/L Normal 21-31 [facility] Comment on above: Order Comment: Bleed , altereed mental status Performed By: #### 1 0, 89471, 79704 ####[facility] [place] [address], [facility] Creatinine [Mass/Vol] 1.34 mg/dL High 0.60-1.20 [facility] Comment on above: Order Comment: Bleed , altereed mental status Performed By: #### 1 0, 95927, 92968 ####[facility] [place] [address], [facility] eGFR- 46 ml/min/1.73sq m Abnormal >60 [facility] Comment on above: Order Comment: Bleed , altereed mental status Result Comment: Calc ulation may not be valid for patients over 70 years Performed By: #### 1 0, 66453, 51127 ####[facility], [place] [address] eGFR- non- 38 ml/min/1.73sq m Abnormal >60 [facility] Comment on above: Order Comment: Bleed , altereed mental status Result Comment: Calc ulation may not be valid for patients over 70 years Performed By: #### 1 0070, 87886, 68478 ####[facility] [place] [address], [facility] Glucose [Mass/Vol] 83 mg/dL Normal 70-100 The [facility] Comment on above: Order Comment: Bleed , altereed mental status Performed By: #### 1 0070, 15008, 10739 ####[facility] [place] [address], [facility] Potassium [Moles/Vol] 4.5 mmol/L Normal 3.5-5.1 [facility] Comment on above: Order Comment: Bleed , altereed mental status Performed By: #### 1 0070, 91604, 90928 ####[facility] [place] [address], [place] Sodium [Moles/Vol] 137 mmol/L Normal 136-145 [facility] Comment on above: Order Comment: Bleed , altereed mental status Performed By: #### 1 0, 79695, 18102 ####[facility] [place] [address], [facility] Urea nitrogen [Mass/Vol] 25 mg/dL Normal 7-25 [facility] Comment on above: Order Comment: Bleed , altereed mental status Performed By: #### 1 0070, 72819, 68004 ####[facility] [place] [address], [facility] CBC COMPLETE BLOOD COUNTon 0 - Erythrocyte distribution width (RBC) [Ratio] 19.9 % High 11.5-15.0 [facility] Comment on above: Order Comment: No: D o not add to previous draw Performed By: #### 8 5499 #### [facility] [address] [place] [address], [facility] Hematocrit (Bld) [Volume fraction] 28.9 % Low 36.0-45.0 [facility] Comment on above: Order Comment: No: D o not add to previous draw Performed By: #### 8 5499 #### [facility] [address] [place] [id number], [facility] Hemoglobin (Bld) [Mass/Vol] 8.7 g/dL Low 12.0-15.0 [facility] Comment on above: Order Comment: No: D o not add to previous draw Performed By: #### 8 5499 #### [facility] [address] [facility] [place] [address], [facility] MCH (RBC) [Entitic mass] 30.1 pg Normal 27.0-33.0 [facility] Comment on above: Order Comment: No: D o not add to previous draw Performed By: #### 8 5499 #### [facility] [address] [facility] [place] [address], [facility] MCHC (RBC) [Mass/Vol] 30.1 g/dL Low 32.0-35.0 [facility] Comment on above: Order Comment: No: D o not add to previous draw Performed By: #### 8 5499 #### [facility] [address] [facility] [place] [address], [facility] MCV (RBC) [Entitic vol] 100.0 fL High 82.0-98.0 [facility] Comment on above: Order Comment: No: D o not add to previous draw Performed By: #### 8 5499 #### [facility] [address] [place] [address], [facility] Nucleated RBC/100 WBC (Bld) [Ratio] 0 % Normal 0-0 [facility] Comment on above: Order Comment: No: D o not add to previous draw Performed By: #### 8 5499 #### [facility] [address] [place] [address], [facility] PLAT CNT 186 10*3/uL Normal 150-400 [facility] Comment on above: Order Comment: No: D o not add to previous draw Performed By: #### 8 5499 #### [facility] [address] [place] [address], [facility] RBC (Bld) [#/Vol] 2.89 10*6/uL Low 3.80-5.00 [facility] Comment on above: Order Comment: No: D o not add to previous draw Performed By: #### 8 5499 #### [facility] [address] [place] [address], [facility] WBC (Bld) [#/Vol] 21.99 10*3/uL High 4.00-10.60 [facility] Comment on above: Order Comment: No: D o not add to previous draw Performed By: #### 8 5499 #### [facility] [address] [place] [address], [facility] LIVER BATTERYon 04-12-2022 Albumin [Mass/Vol] 3.0 g/dL Low 3.5-5.[address] [facility] Comment on above: Order Comment: Bleed , altereed mental status Performed By: #### 1 0070, 94748, 99248 ####[facility] [facility] ALKALINE PHOSPH 87 IU/L Normal 34-104 The [facility] Comment on above: Order Comment: Bleed , altereed mental status Performed By: #### 1 0070, 75445, 48123 ####[facility] [facility].[address] ALT [Catalytic activity/Vol] 7 U/L Normal 7-52 [facility] Comment on above: Order Comment: Bleed , altereed mental status Performed By: #### 1 0070, 83826, 80851 ####[facility] AST [Catalytic activity/Vol] 11 U/L Low 13-39 [facility] Comment on above: Order Comment: Bleed , altereed mental status Performed By: #### 1 0, 69333, 17073 ####[facility] [place] [address], [facility] Bilirubin [Mass/Vol] 0.8 mg/dL Normal 0.3-1.0 [facility] Comment on above: Order Comment: Bleed , altereed mental status Performed By: #### 1 0, 94731, 78730 ####[facility] Bilirubin.direct [Mass/Vol] 0.2 mg/dL Normal 0.0-0.2 [facility] Comment on above: Order Comment: Bleed , altereed mental status Performed By: #### 1 0, , 11588 ####[facility] Protein [Mass/Vol] 6.0 g/dL Normal 6.0-8.3 [facility] Comment on above: Order Comment: Bleed , altereed mental status Performed By: #### 1 0, 52547, 62414 ####[facility] [place] [address], [facility] MAGNESIUM BLOODon 04-12-2022 Magnesium [Mass/Vol] 1.9 mg/dL Normal 1.9-2.7 [facility] Comment on above: Order Comment: Bleed , altereed mental status Performed By: #### 1 0, 94037, 09265 ####[facility] [place] [address], [facility] Operative Reporton 2 Operative Report MR#: [id number] # [facility] Pt. Name: María Elena Tafoya Room #: CCCI Discharge Date: Birthdate: 1940 OPERATIVE REPORT DATE OF SURGERY: 04/12/2022 SURGEON: Sharla Lizama MD Operative report: Laparoscopic cholecystectomy Location: [facility] main or Preoperative diagnosis: Gallstone pancreatitis Postoperative diagnosis: Gallstone pancreatitis Operation performed: Laparoscopic cholecystectomy Surgeon: Sharla Lizama MD Cold Roll Catcher: Dillon Thomas MD (resident pgy5) Estimated blood [...] Lizama MD Date Trans: 04/12/2022 05:18 P/ [id number] cc: Bennie Albright M.D. [address], [facility] [id number] Normal The [facility] Operative Report MR#: [id number] I [facility] Pt. Name: María Elena Tafoya Room #: [id number] Discharge Date: Birthdate: 1940 OPERATIVE REPORT DATE OF SURGERY: 04/12/2022 SURGEON: Sharla Lizama MD Operative report: Laparoscopic cholecystectomy Location: [facility] main or Preoperative diagnosis: Gallstone pancreatitis Postoperative diagnosis: Gallstone pancreatitis Operation performed: Laparoscopic cholecystectomy Surgeon: Sharla Lizama MD Cold Roll Catcher: Dillon Thomas MD (resident pgy5) Estimated blood [...] Lizama MD Date Trans: 04/12/2022 05:18 P/ [id number]:[id number] cc: Bennie Albright M.D. [address] [facility] [address] Normal The [facility] POC GLUCOSE LABon 04-12-2022 Glucose [Mass/Vol] 122 mg/dL High 70-100 [facility] Comment on above: Performed By: #### 8 [id number] #### [facility] [address] [facility] [place] [address], [facility] Glucose [Mass/Vol] 167 mg/dL High 70-100 [facility] Comment on above: Performed By: #### 8 [id number] ####[facility] [place] [place] [address], [facility] Glucose [Mass/Vol] 105 mg/dL High 70-100 [facility] Comment on above: Performed By: #### 3 [id number] #### [facility] [address] [facility] [place] [address], [facility] Glucose [Mass/Vol] 111 mg/dL High 70-100 [facility] Comment on above: Performed By: #### 8 [id number] ####[facility] [place] [place] [address], [facility] Glucose [Mass/Vol] 109 mg/dL High 70-100 [facility] Comment on above: Performed By: #### 3 [id number] #### [facility] [address] [place], [place] [id number] [place] [address] POC SARS COV2 IDon 2 SARS-CoV-2 (COVID-19) RNA MATTHEW+probe Ql (Unsp spec) Negative Normal NEGATIVE [facility] Comment on above: Result Comment: ID [...] Accreditation. Performed By: #### 8 [id number] #### [facility] [address] [facility] [place] [address], [facility] BASIC METABOLIC PANELon 05-2 Calcium [Mass/Vol] 8.3 mg/dL Low 8.6-10.[address] [facility] Comment on above: Order Comment: No: D o not add to previous draw Performed By: #### 8 [id number] #### [facility] [address] [place] [address], [place] Chloride [Moles/Vol] 106 mmol/L Normal 98-107 [facility] Comment on above: Order Comment: No: D o not add to previous draw Performed By: #### 8 [id number] #### [facility] [address] [place] [address], [place] CO2 [Moles/Vol] 23 mmol/L Normal 21-31 [facility] Comment on above: Order Comment: No: D o not add to previous draw Performed By: #### 8 [id number] #### [facility] [address] [place] [address], [place] Creatinine [Mass/Vol] 1.21 mg/dL High 0.60-1.20 [facility] Comment on above: Order Comment: No: D o not add to previous draw Performed By: #### 8 [id number] #### [facility] [address] [place] [address], [facility] eGFR- 51 ml/min/1.73sq m Abnormal >60 [facility] Comment on above: Order Comment: No: D o not add to previous draw Result Comment: Calc ulation may not be valid for patients over 70 years Performed By: #### 8 [id number] #### [facility] [address] [place] [address], [facility] eGFR- non- 42 ml/min/1.73sq m Abnormal >60 [facility] Comment on above: Order Comment: No: D o not add to previous draw Result Comment: Calc ulation may not be valid for patients over 70 years Performed By: #### 8 [id number] #### [facility] [address] [place] [address], [place] Glucose [Mass/Vol] 91 mg/dL Normal 70-100 [facility] Comment on above: Order Comment: No: D o not add to previous draw Performed By: #### 8 [id number] #### [facility] [address] [place] [address], [place] Potassium [Moles/Vol] 4.5 mmol/L Normal 3.5-5.1 [facility] Comment on above: Order Comment: No: D o not add to previous draw Performed By: #### 8 [id number] #### [facility] [address] [place] [address], [place] Sodium [Moles/Vol] 138 mmol/L Normal 136-145 [facility] Comment on above: Order Comment: No: D o not add to previous draw Performed By: #### 8 [id number] #### [facility] [address] [place] [address], [place] Urea nitrogen [Mass/Vol] 22 mg/dL Normal 7-25 [facility] Comment on above: Order Comment: No: D o not add to previous draw Performed By: #### 8 [id number] #### [facility] [address] [place] [address], [place] CBC COMPLETE BLOOD COUNTon 0 04-11-2022 Erythrocyte distribution width (RBC) [Ratio] 19.6 % High 11.5-15.0 [facility] Comment on above: Order Comment: No: D o not add to previous draw Performed By: #### 5 [id number] #### [facility] [address] [place] [address], [place] Hematocrit (Bld) [Volume fraction] 29.5 % Low 36.0-45.0 [facility] Comment on above: Order Comment: No: D o not add to previous draw Performed By: #### 5 [id number] #### [facility] [address] Hemoglobin (Bld) [Mass/Vol] 9.2 g/dL Low 12.0-15.0 [facility] Comment on above: Order Comment: No: D o not add to previous draw Performed By: #### 5 [id number] #### [facility] [address] [place] [address], [facility] MCH (RBC) [Entitic mass] 31.0 pg Normal 27.0-33.0 [facility] Comment on above: Order Comment: No: D o not add to previous draw Performed By: #### 5 [id number] #### [facility] [address] [facility] MCHC (RBC) [Mass/Vol] 31.2 g/dL Low 32.0-35.0 [facility] Comment on above: Order Comment: No: D o not add to previous draw Performed By: #### 5 [id number] #### [facility] [address] [facility] MCV (RBC) [Entitic vol] 99.3 fL High 82.0-98.0 [facility] Comment on above: Order Comment: No: D o not add to previous draw Performed By: #### 5 [id number] #### [facility] [address] [facility] Nucleated RBC/100 WBC (Bld) [Ratio] 0 % Normal 0-0 [facility] Comment on above: Order Comment: No: D o not add to previous draw Performed By: #### 5 [id number] #### [facility] [address] [facility] [place] [address], [facility] PLAT CNT 277 10*3/uL Normal 150-400 [facility] Comment on above: Order Comment: No: D o not add to previous draw Performed By: #### 5 [id number] #### [facility] [address] [facility] [place] [address], [facility] RBC (Bld) [#/Vol] 2.97 10*6/uL Low 3.80-5.00 [facility] Comment on above: Order Comment: No: D o not add to previous draw Performed By: #### 5 [id number] #### [facility] [address] [place] [address], [facility] WBC (Bld) [#/Vol] 20.81 10*3/uL High 4.00-10.60 [facility] Comment on above: Order Comment: No: D o not add to previous draw Performed By: #### 5 [id number] #### [facility] [address] [facility] [place] [address], [facility] LIVER BATTERYon 04-11-2022 Albumin [Mass/Vol] 3.1 g/dL Low 3.5-5.[address] [facility] Comment on above: Order Comment: No: D o not add to previous draw Performed By: #### 8 [id number] #### [facility] [address] [place] [id number], [facility] ALKALINE PHOSPH 92 IU/L Normal 34-104 The [facility] Comment on above: Order Comment: No: D o not add to previous draw Performed By: #### 8 [id number] #### [facility] [address] [place] [id number], [facility] ALT [Catalytic activity/Vol] 7 U/L Normal 7-52 [facility] Comment on above: Order Comment: No: D o not add to previous draw Performed By: #### 8 [id number] #### [facility] [address] [place] [id number], [facility] AST [Catalytic activity/Vol] 9 U/L Low 13-39 [facility] Comment on above: Order Comment: No: D o not add to previous draw Performed By: #### 8 [id number] #### [facility] [address] [place] [address], [place] Bilirubin [Mass/Vol] 0.8 mg/dL Normal 0.3-1.0 [facility] Comment on above: Order Comment: No: D o not add to previous draw Performed By: #### 8 [id number] #### [facility] [address] [place] [address], [place] Bilirubin.direct [Mass/Vol] 0.3 mg/dL High 0.0-0.2 [facility] Comment on above: Order Comment: No: D o not add to previous draw Performed By: #### 8 [id number] #### [facility] [address] [place] [address], [place] Protein [Mass/Vol] 5.7 g/dL Low 6.0-8.3 [facility] Comment on above: Order Comment: No: D o not add to previous draw Performed By: #### 8 [id number] #### [facility] [address] [place] [address], [place] MAGNESIUM BLOODon 04-11-2022 Magnesium [Mass/Vol] 1.7 mg/dL Low 1.9-2.7 [facility] Comment on above: Order Comment: No: D o not add to previous draw Performed By: #### 8 [id number] #### [facility] [address] [place] [address], [place] POC GLUCOSE LABon 04-11-2022 Glucose [Mass/Vol] 143 mg/dL High 70-100 [facility] Comment on above: Performed By: #### 8 [id number] #### [facility] [address] [place] [address], [place] Glucose [Mass/Vol] 142 mg/dL High 70-100 [facility] Comment on above: Performed By: #### 8 [id number] ####[facility] [place] [address], [place] Glucose [Mass/Vol] 125 mg/dL High 70-100 [facility] Comment on above: Performed By: #### 8 [id number] #### [facility] [address] [place] [address], [place] Glucose [Mass/Vol] 113 mg/dL High 70-100 [facility] Comment on above: Performed By: #### 3 0313 #### [facility] [address] [place] [address], [place] URINE SMITH STAIN/EOSon EOSINOPHIL SMEAR NONE SEEN Normal NSN [facility] Comment on above: Order Comment: No: D o not add to previous draw [place] Normal [facility] Comment on above: Order Comment: No: D o not add to previous draw Result Comment: Test Performed by [employer] [address] [place], [place] [id number] - Released 04/11/2022 22:02 BASIC METABOLIC PANELon 05-2 Calcium [Mass/Vol] 8.3 mg/dL Low 8.6-10.3 [facility] Comment on above: Order Comment: No: D o not add to previous draw Performed By: #### 8 [id number] #### [facility] [address] [place] [address], [place] Chloride [Moles/Vol] 107 mmol/L Normal 98-107 [facility] Comment on above: Order Comment: No: D o not add to previous draw Performed By: #### 8 [id number] #### [facility] [address] [place] [address], [place] CO2 [Moles/Vol] 23 mmol/L Normal 21-31 The [facility] Comment on above: Order Comment: No: D o not add to previous draw Performed By: #### 8 [id number] #### [facility] [address] [place] [address], [place] Creatinine [Mass/Vol] 1.40 mg/dL High 0.60-1.20 [facility] Comment on above: Order Comment: No: D o not add to previous draw Performed By: #### 8 [id number] #### [facility] [address] [place] [address], [place] eGFR- 44 ml/min/1.73sq m Abnormal >60 [facility] Comment on above: Order Comment: No: D o not add to previous draw Result Comment: Calc ulation may not be valid for patients over 70 years Performed By: #### 8 [id number] #### [facility] [address] [place] [address], [place] eGFR- non- 36 ml/min/1.73sq m Abnormal >60 [facility] Comment on above: Order Comment: No: D o not add to previous draw Result Comment: Calc ulation may not be valid for patients over 70 years Performed By: #### 8 [id number] #### [facility] [address] [place] [address], [place] Glucose [Mass/Vol] 101 mg/dL High 70-100 [facility] Comment on above: Order Comment: No: D o not add to previous draw Performed By: #### 8 [id number] #### [facility] [address] [place] [address], [place] Potassium [Moles/Vol] 4.1 mmol/L Normal 3.5-5.1 [facility] Comment on above: Order Comment: No: D o not add to previous draw Performed By: #### 8 [id number] #### [facility] [address] [place] [address], [place] Sodium [Moles/Vol] 138 mmol/L Normal 136-145 [facility] Comment on above: Order Comment: No: D o not add to previous draw Performed By: #### 8 [id number] #### [facility] [address] [place] [address], [place] Urea nitrogen [Mass/Vol] 25 mg/dL Normal 7-25 [facility] Comment on above: Order Comment: No: D o not add to previous draw Performed By: #### 8 [id number] #### [facility] [address] [place] [address], [facility] CBC COMPLETE BLOOD COUNTon 0 - Erythrocyte distribution width (RBC) [Ratio] 19.9 % High 11.5-15.0 [facility] Comment on above: Order Comment: No: D o not add to previous draw Performed By: #### 5 [id number] #### [facility] [address] [place] [address], [facility] Hematocrit (Bld) [Volume fraction] 29.1 % Low 36.0-45.0 [facility] Comment on above: Order Comment: No: D o not add to previous draw Performed By: #### 5 [id number] #### [facility] [address] Hemoglobin (Bld) [Mass/Vol] 9.1 g/dL Low 12.0-15.0 [facility] Comment on above: Order Comment: No: D o not add to previous draw Performed By: #### 5 [id number] #### [facility] [address] [place] [address], [facility] MCH (RBC) [Entitic mass] 30.6 pg Normal 27.0-33.0 [facility] Comment on above: Order Comment: No: D o not add to previous draw Performed By: #### 5 [id number] #### [facility] [address] [place] [address], [facility] MCHC (RBC) [Mass/Vol] 31.3 g/dL Low 32.0-35.0 [facility] Comment on above: Order Comment: No: D o not add to previous draw Performed By: #### 5 [id number] #### [facility] [address] [place] [address], [facility] MCV (RBC) [Entitic vol] 98.0 fL Normal 82.0-98.0 [facility] Comment on above: Order Comment: No: D o not add to previous draw Performed By: #### 5 [id number] #### [facility] [address] [place] [address], [facility] Nucleated RBC/100 WBC (Bld) [Ratio] 0 % Normal 0-0 [facility] Comment on above: Order Comment: No: D o not add to previous draw Performed By: #### 5 [id number] #### [facility] [address] [place] [address], [facility] PLAT CNT 281 10*3/uL Normal 150-400 [facility] Comment on above: Order Comment: No: D o not add to previous draw Performed By: #### 5 [id number] #### [facility] [address] [place] [address], [facility] RBC (Bld) [#/Vol] 2.97 10*6/uL Low 3.80-5.00 The [facility] Comment on above: Order Comment: No: D o not add to previous draw Performed By: #### 5 [id number] #### [facility] [address] [place] [address], [facility] WBC (Bld) [#/Vol] 19.64 10*3/uL High 4.00-10.60 [facility] Comment on above: Order Comment: No: D o not add to previous draw Performed By: #### 5 [id number] #### [facility] [address] [place] [id number], [facility] MAGNESIUM BLOODon 04-10-2022 Magnesium [Mass/Vol] 1.6 mg/dL Low 1.9-2.7 [facility] Comment on above: Order Comment: No: D o not add to previous draw Performed By: #### 8 [id number] #### [facility] [address] [place] [address], [place] POC GLUCOSE LABon 04-10-2022 Glucose [Mass/Vol] 154 mg/dL High 70-100 [facility] Comment on above: Performed By: #### 8 [id number] #### [facility] [address] [place] [address], [place] Glucose [Mass/Vol] 120 mg/dL High 70-100 [facility] Comment on above: Performed By: #### 3 [id number] #### [facility] [address] [place] [address], [place] Glucose [Mass/Vol] 131 mg/dL High 70-100 [facility] Comment on above: Performed By: #### 8 [id number] ####[facility] [place] [address], [place] Glucose [Mass/Vol] 114 mg/dL High 70-100 [facility] Comment on above: Performed By: #### 8 [id number] #### [facility] [address] [place] [address], [place] BASIC METABOLIC PANELon 03-19 Calcium [Mass/Vol] 8.7 mg/dL Normal 8.6-10.3 [facility] Comment on above: Order Comment: No: D o not add to previous draw Performed By: #### 8 [id number] #### [facility] [address] [place] [address], [place] Chloride [Moles/Vol] 104 mmol/L Normal 98-107 [facility] Comment on above: Order Comment: No: D o not add to previous draw Performed By: #### 8 [id number] #### [facility] [address] [place] [address], [place] CO2 [Moles/Vol] 24 mmol/L Normal 21-31 The [facility] Comment on above: Order Comment: No: D o not add to previous draw Performed By: #### 8 [id number] #### [facility] [address] [place] [address], [place] Creatinine [Mass/Vol] 1.29 mg/dL High 0.60-1.20 [facility] Comment on above: Order Comment: No: D o not add to previous draw Performed By: #### 8 [id number] #### [facility] [address] [place] [address], [place] eGFR- 48 ml/min/1.73sq m Abnormal >60 [facility] Comment on above: Order Comment: No: D o not add to previous draw Result Comment: Calc ulation may not be valid for patients over 70 years Performed By: #### 8 [id number] #### [facility] [address] [place] [address], [place] eGFR- non- 39 ml/min/1.73sq m Abnormal >60 [facility] Comment on above: Order Comment: No: D o not add to previous draw Result Comment: Calc ulation may not be valid for patients over 70 years Performed By: #### 8 [id number] #### [facility] [address] [place] [address], [place] Glucose [Mass/Vol] 90 mg/dL Normal 70-100 [facility] Comment on above: Order Comment: No: D o not add to previous draw Performed By: #### 8 [id number] #### [facility] [address] [place] [address], [place] Potassium [Moles/Vol] 4.3 mmol/L Normal 3.5-5.1 [facility] Comment on above: Order Comment: No: D o not add to previous draw Performed By: #### 8 [id number] #### [facility] [address] [place] [address], [place] Sodium [Moles/Vol] 137 mmol/L Normal 136-145 [facility] Comment on above: Order Comment: No: D o not add to previous draw Performed By: #### 8 [id number] #### [facility] [address] [place] [address], [facility] Urea nitrogen [Mass/Vol] 16 mg/dL Normal 7-25 [facility] Comment on above: Order Comment: No: D o not add to previous draw Performed By: #### 8 [id number] #### [facility] [address] [place] [address], [facility] CBC COMPLETE BLOOD COUNTon 04-09-2022 Erythrocyte distribution width (RBC) [Ratio] 19.4 % High 11.5-15.0 [facility] Comment on above: Order Comment: No: D o not add to previous draw Performed By: #### 8 [id number] #### [facility] [address] [place] [id number] Hematocrit (Bld) [Volume fraction] 29.9 % Low 36.0-45.0 [facility] Comment on above: Order Comment: No: D o not add to previous draw Performed By: #### 8 [id number] #### [facility] [address] [place] [address], [facility] Hemoglobin (Bld) [Mass/Vol] 9.4 g/dL Low 12.0-15.0 [facility] Comment on above: Order Comment: No: D o not add to previous draw Performed By: #### 8 [id number] #### [facility] [address] [place] [address], [facility] MCH (RBC) [Entitic mass] 30.4 pg Normal 27.0-33.0 [facility] Comment on above: Order Comment: No: D o not add to previous draw Performed By: #### 8 [id number] #### [facility] [address] [place] [id number], [facility] MCHC (RBC) [Mass/Vol] 31.4 g/dL Low 32.0-35.0 [facility] Comment on above: Order Comment: No: D o not add to previous draw Performed By: #### 8 [id number] #### [facility] [address] [place] [address], [facility] MCV (RBC) [Entitic vol] 96.8 fL Normal 82.0-98.0 [facility] Comment on above: Order Comment: No: D o not add to previous draw Performed By: #### 8 [id number] #### [facility] [address] [place] [address], [facility] Nucleated RBC/100 WBC (Bld) [Ratio] 0 % Normal 0-0 [facility] Comment on above: Order Comment: No: D o not add to previous draw Performed By: #### 8 [id number] #### [facility] [address] [place] [address], [facility] PLAT CNT 325 10*3/uL Normal 150-400 [facility] Comment on above: Order Comment: No: D o not add to previous draw Performed By: #### 8 [id number] #### [facility] [address] [facility] [place] [address], [facility] RBC (Bld) [#/Vol] 3.09 10*6/uL Low 3.80-5.00 The [facility] Comment on above: Order Comment: No: D o not add to previous draw Performed By: #### 8 [id number] #### [facility] [address] [place] [address], [facility] WBC (Bld) [#/Vol] 21.91 10*3/uL High 4.00-10.60 [facility] Comment on above: Order Comment: No: D o not add to previous draw Performed By: #### 8 [id number] #### [facility] [address] [place] [address], [facility] CREATININE URINE RANDOMon Creatinine (U) [Mass/Vol] 40.0 mg/dL Normal [facility] Comment on above: Order Comment: The A ptima SARS-CoV-2 assay is a nucleic acid amplification test intended for the qualitative detection of RNA from SARS-CoV-2 isolated and purified from nasopharyngeal (MEDICATION SPECIALIST),oropharyngeal (OP), nasal swab, sputum, and bronchoalveolar lavage (BAL) specimens from patients with signs and symptoms of infection who are suspected of COVID-19. Results are for the identification of SARS-CoV-2 RNA. The SARS-CoV-2 RNA is generally detectable during the acute phase of infection. The Aptima SARS-CoV-2 Assay on the [employer] Fusion system is intended for use by laboratory personnel specifically instructed and trained in the operation of the [employer] Fusion system. The Aptima SARS-CoV-2 assay is [...] specimens Performed By: #### 3 [id number] #### [facility] [address] [place] [address], [facility] MAGNESIUM BLOODon 04-09-2022 Magnesium [Mass/Vol] 1.9 mg/dL Normal 1.9-2.7 [facility] Comment on above: Order Comment: No: D o not add to previous draw Performed By: #### [id number] #### [facility] [address] [place] [address], [facility] OSMOLALITY URINEon OSMOLALITY 317 mOsm/kg Normal 50-1400 [facility] Comment on above: Order Comment: The A ptima SARS-CoV-2 assay is a nucleic acid amplification test intended for the qualitative detection of RNA from SARS-CoV-2 isolated and purified from nasopharyngeal (MEDICATION SPECIALIST),oropharyngeal (OP), nasal swab, sputum, and bronchoalveolar lavage (BAL) specimens from patients with signs and symptoms of infection who are suspected of COVID-19. Results are for the identification of SARS-CoV-2 RNA. The SARS-CoV-2 RNA is generally detectable during the acute phase of infection. The Aptima SARS-CoV-2 Assay on the [employer] system is intended for use by laboratory personnel specifically instructed and trained in the operation of the [employer] system. The Aptima SARS-CoV-2 assay is [...] information. Performed By: #### 3 [id number] #### [facility] [address] [place] [address], [facility] POC GLUCOSE LABon 04-09-2022 Glucose [Mass/Vol] 159 mg/dL High 70-100 The [facility] Comment on above: Performed By: #### [id number] #### [facility] [address] [place] [address], [place] Glucose [Mass/Vol] 141 mg/dL High 70-100 [facility] Comment on above: Performed By: #### [id number] #### [facility] [address] [place] [address], [place] Glucose [Mass/Vol] 337 mg/dL High 70-100 [facility] Comment on above: Performed By: #### [id number] #### [facility] [address] [place] [address], [place] Glucose [Mass/Vol] 113 mg/dL High 70-100 [facility] Comment on above: Order Comment: NOTE: Result Checked Performed By: #### 3 [id number] #### [facility] [address] [place] [address], [place] SODIUM URINE RANDOMon 05-23- 2022 Sodium (U) [Moles/Vol] 105 mmol/L Normal The [facility] Comment on above: Order Comment: The A ptima SARS-CoV-2 assay is a nucleic acid amplification test intended for the qualitative detection of RNA from SARS-CoV-2 isolated and purified from nasopharyngeal (MEDICATION SPECIALIST),oropharyngeal (OP), nasal swab, sputum, and bronchoalveolar lavage (BAL) specimens from patients with signs and symptoms of infection who are suspected of COVID-19. Results are for the identification of SARS-CoV-2 RNA. The SARS-CoV-2 RNA is generally detectable during the acute phase of infection. The Aptima SARS-CoV-2 Assay on the [employer] Fusion system is intended for use by laboratory personnel specifically instructed and trained in the operation of the [employer] system. The Aptima SARS-CoV-2 assay is [...] specimens Performed By: #### 3 [id number] #### [facility] [address] [facility] [place] [address], [facility] UA,MICROSCOPIC REQUIREDon Appearance (U) CLEAR Normal CLEAR [facility] Comment on above: Order Comment: No: D o not add to previous draw Performed By: #### [id number] #### [facility] [address] [facility] [place] [address], [facility] Bilirubin Ql (U) Negative Normal NEGATIVE The [facility] Comment on above: Order Comment: No: D o not add to previous draw Performed By: #### [id number] #### [facility] [address] [facility] [place] [address], [place] BUDDING YEAST FEW Abnormal NONE SEEN The [facility] Comment on above: Order Comment: No: D o not add to previous draw Performed By: #### 8 [id number] #### [facility] [address] [place] [address], [place] Color (U) YELLOW Normal YELLOW [facility] Comment on above: Order Comment: No: D o not add to previous draw Performed By: #### [id number] #### [facility] [address] [place] [address], [place] EPIS NONE SEEN Normal FEW,OCC,NONE SEEN [facility] Comment on above: Order Comment: No: D o not add to previous draw Performed By: #### [id number] #### [facility] [address] [place] [address], [place] Glucose Ql (U) Negative Normal NEGATIVE [facility] Comment on above: Order Comment: No: D o not add to previous draw Performed By: #### 8 [id number] #### [facility] [address] [place] [address], [place] Hemoglobin Ql (U) SMALL Abnormal NEGATIVE The [facility] Comment on above: Order Comment: No: D o not add to previous draw Performed By: #### 8 [id number] #### [facility] [address] [place] [address], [place] KETONE Negative Normal NEGATIVE [facility] Comment on above: Order Comment: No: D o not add to previous draw Performed By: #### 8 [id number] #### [facility] [address] [place] [address], [place] LEUK LUIS ANTONIO Negative Normal NEGATIVE [facility] Comment on above: Order Comment: No: D o not add to previous draw Performed By: #### 8 [id number] #### [facility] [address] [place] [address], [place] Nitrite Ql (U) Negative Normal NEGATIVE [facility] Comment on above: Order Comment: No: D o not add to previous draw Performed By: #### 8 [id number] #### [facility] [address] [place] [address], [facility] pH (U) 7.0 [pH] Normal 5.0-8.0 [facility] Comment on above: Order Comment: No: D o not add to previous draw Performed By: #### [id number] #### [facility] [address] [place] [address], [facility] Protein Ql (U) Negative Normal NEGATIVE [facility] Comment on above: Order Comment: No: D o not add to previous draw Performed By: #### 8 [id number] #### [facility] [address] [place] [address], [facility] RBC 0-2 Abnormal NONE SEEN [facility] Comment on above: Order Comment: No: D o not add to previous draw Performed By: #### 8 [id number] #### [facility] [address] [place] [address], [facility] SPEC GRAV 1.008 Low 1.015-1.020 [facility] Comment on above: Order Comment: No: D o not add to previous draw Performed By: #### 8 [id number] #### [facility] [address] [place] [address], [facility] WBC UA NONE SEEN Normal NONE SEEN [facility] Comment on above: Order Comment: No: D o not add to previous draw Performed By: #### 8 [id number] #### [facility] [address] [place] [address], [facility] *BLOOD CULTUREon 04-08-2022 *BLOOD CULTURE Clinical Report: (D) Specimen: BLOOD CULTURE Collected: 04/08/2022 18:50 Status: Final Last Updated: 04/14/2022 06:21 CULT RES (Final) No Growth Day 5 Normal [facility] Comment on above: Performed By: #### 3 [id number] #### [facility] [address] [place] [address], [facility] *BLOOD CULTURE Clinical Report: (D) Specimen: BLOOD CULTURE Collected: 04/08/2022 15:33 Status: Final Last Updated: 04/14/2022 06:21 (1) Per denisha Fernandez.labs to be drawn at three CULT RES (Final) No Growth Day 5 Normal [facility] Comment on above: Order Comment: No: D o not add to previous draw Performed By: #### 5 [id number] #### [facility] [address] [place] [address], [facility] BASIC METABOLIC PANELon 03-19 Calcium [Mass/Vol] 8.9 mg/dL Normal 8.6-10.[address] [facility] Comment on above: Order Comment: No: D o not add to previous draw Performed By: #### 2 [id number] #### [facility] [address] [place] [address], [facility] Chloride [Moles/Vol] 105 mmol/L Normal 98-107 [facility] Comment on above: Order Comment: No: D o not add to previous draw Performed By: #### 2 [id number] #### [facility] [address] [facility] [place] [address], [place] CO2 [Moles/Vol] 24 mmol/L Normal 21-31 The [facility] Comment on above: Order Comment: No: D o not add to previous draw Performed By: #### 2 2706 #### [facility] [address] [place] [address], [place] Creatinine [Mass/Vol] 1.03 mg/dL Normal 0.60-1.20 [facility] Comment on above: Order Comment: No: D o not add to previous draw Performed By: #### 2 2706 #### [facility] [address] [place] [address], [facility] eGFR- non- 51 ml/min/1.73sq m Abnormal >60 [facility] Comment on above: Order Comment: No: D o not add to previous draw Result Comment: Calc ulation may not be valid for patients over 70 years Performed By: #### 2 [id number] #### [facility] [address] [place] [address], [place] GFR/1.73 sq M.predicted among blacks MDRD (S/P/Bld) [Vol rate/Area] mL/min/{1.73_m2} Normal >60 [facility] Comment on above: Order Comment: No: D o not add to previous draw Result Comment: Calc ulation may not be valid for patients over 70 years Performed By: #### 2 [id number] #### [facility] [address] [place] [address], [place] Glucose [Mass/Vol] 113 mg/dL High 70-100 [facility] Comment on above: Order Comment: No: D o not add to previous draw Performed By: #### 2 [id number] #### [facility] [address] [place] [address], [place] Potassium [Moles/Vol] 4.1 mmol/L Normal 3.5-5.1 [facility] Comment on above: Order Comment: No: D o not add to previous draw Performed By: #### 2 [id number] #### [facility] [address] [place] [address], [place] Sodium [Moles/Vol] 136 mmol/L Normal 136-145 [facility] Comment on above: Order Comment: No: D o not add to previous draw Performed By: #### 2 [id number] #### [facility] [address] [place] [address], [place] Urea nitrogen [Mass/Vol] 11 mg/dL Normal 7-25 [facility] Comment on above: Order Comment: No: D o not add to previous draw Performed By: #### 2 [id number] #### [facility] [address] CBC W/DIFFon 04-08-2022 ABS IMM GRANS 0.4 10*3/uL High 0.0-0.2 [facility] Comment on above: Performed By: #### 8 [id number] #### [facility] [address] [place] [address], [facility] ABS NEUTROPHILS 24.5 10*3/uL High 1.6-7.6 The [facility] Comment on above: Performed By: #### 8 [id number] #### [facility] [address] [facility] [place] [address], [facility] ANISO Moderate Normal [facility] Comment on above: Performed By: #### 8 [id number] #### [facility] [address] [facility] [place] [address], [facility] Basophils (Bld) [#/Vol] 0.2 10*3/uL Normal 0.0-0.2 [facility] Comment on above: Performed By: #### 8 [id number] #### [facility] [address] [place] [address], [facility] Basophils/100 WBC (Bld) 0.6 % Normal 0.0-1.0 [facility] Comment on above: Performed By: #### 8 [id number] #### [facility] [address] [place] [address], [facility] Eosinophils (Bld) [#/Vol] 0.0 10*3/uL Normal 0.0-0.5 [facility] Comment on above: Performed By: #### 8 [id number] #### [facility] [address] [place] [address], [facility] Eosinophils/100 WBC (Bld) 0.1 % Normal 0.0-6.0 [facility] Comment on above: Performed By: #### 8 [id number] #### [facility] [address] [place] [address], [facility] Erythrocyte distribution width (RBC) [Ratio] 19.1 % High 11.5-15.0 [facility] Comment on above: Performed By: #### 8 [id number] #### [facility] [address] [facility] [place] [address], [facility] Hematocrit (Bld) [Volume fraction] 32.3 % Low 36.0-45.0 [facility] Comment on above: Performed By: #### 8 [id number] #### [facility] [address] [facility] [place] [address], [facility] Hemoglobin (Bld) [Mass/Vol] 10.1 g/dL Low 12.0-15.0 [facility] Comment on above: Performed By: #### 8 [id number] #### [facility] [address] [facility] [place] [address], [facility] IMMATURE GRANS 1.5 % High 0.0-1.0 [facility] Comment on above: Performed By: #### 8 [id number] #### [facility] [address] [facility] [place] [address], [facility] Lymphocytes (Bld) [#/Vol] 1.5 10*3/uL Normal 1.2-4.0 [facility] Comment on above: Performed By: #### 8 [id number] #### [facility] [address] [facility] [place] [address], [facility] Lymphocytes/100 WBC (Bld) 5.5 % Low 20.0-45.0 [facility] Comment on above: Performed By: #### 8 [id number] #### [facility] [address] [facility] [place] [address], [facility] MCH (RBC) [Entitic mass] 30.4 pg Normal 27.0-33.0 [facility] Comment on above: Performed By: #### 8 [id number] #### [facility] [address] [place] [address], [facility] MCHC (RBC) [Mass/Vol] 31.3 g/dL Low 32.0-35.0 [facility] Comment on above: Performed By: #### 8 [id number] #### [facility] [address] [place] [address], [facility] MCV (RBC) [Entitic vol] 97.3 fL Normal 82.0-98.0 [facility] Comment on above: Performed By: #### 8 [id number] #### [facility] [address] [facility] [place] [address], [facility] Monocytes (Bld) [#/Vol] 0.6 10*3/uL Normal 0.1-1.0 [facility] Comment on above: Performed By: #### 8 [id number] #### [facility] [address] [place] [address], [facility] MONOS 2.1 % Low 5.0-12.0 [facility] Comment on above: Performed By: #### 8 [id number] #### [facility] [address] [facility] [place] [address], [facility] Neutrophils/100 WBC (Bld) 90.2 % High 40.0-72.0 [facility] Comment on above: Performed By: #### 8 [id number] #### [facility] [address] [facility] [place] [address], [facility] Nucleated RBC/100 WBC (Bld) [Ratio] 0 % Normal 0-0 [facility] Comment on above: Performed By: #### 8 [id number] #### [facility] [address] [place] [address], [facility] PLAT CNT 321 10*3/uL Normal 150-400 [facility] Comment on above: Performed By: #### 8 [id number] #### [facility] [address] [place] [address], [facility] POIK Slight Normal [facility] Comment on above: Performed By: #### 8 [id number] #### [facility] [address] [place] [address], [place] POLY Slight Normal [facility] Comment on above: Performed By: #### 8 [id number] #### [facility] [address] [place] [address], [place] RBC (Bld) [#/Vol] 3.32 10*6/uL Low 3.80-5.00 The [facility] Comment on above: Performed By: #### 8 [id number] #### [facility] [address] [place] [address], [place] WBC (Bld) [#/Vol] 27.12 10*3/uL High 4.00-10.60 [facility] Comment on above: Performed By: #### 8 [id number] #### [facility] [address] [place] [address], [place] MAGNESIUM BLOODon 04-08-2022 Magnesium [Mass/Vol] 1.4 mg/dL Low 1.9-2.7 [facility] Comment on above: Order Comment: No: D o not add to previous draw Performed By: #### 2 [id number] #### [facility] [address] [place] [address], [place] POC GLUCOSE LABon 04-08-2022 Glucose [Mass/Vol] 129 mg/dL High 70-100 The [facility] Comment on above: Performed By: #### 8 [id number] #### [facility] [address] [place] [address], [place] Glucose [Mass/Vol] 130 mg/dL High 70-100 [facility] Comment on above: Performed By: #### 5 [id number] #### [facility] [address] [place] [address], [place] Glucose [Mass/Vol] 132 mg/dL High 70-100 [facility] Comment on above: Performed By: #### 8 [id number] #### [facility] [address] [place] [address], [place] Glucose [Mass/Vol] 129 mg/dL High 70-100 [facility] Comment on above: Performed By: #### 8 [id number] #### [facility] [address] [place] [address], [place] BASIC METABOLIC PANELon 05-2 Calcium [Mass/Vol] 7.8 mg/dL Low 8.6-10.3 [facility] Comment on above: Order Comment: No: D o not add to previous draw Performed By: #### 8 [id number] #### [facility] [address] [place] [address], [place] Chloride [Moles/Vol] 107 mmol/L Normal 98-107 [facility] Comment on above: Order Comment: No: D o not add to previous draw Performed By: #### 8 [id number] #### [facility] [address] [place] [address], [place] CO2 [Moles/Vol] 26 mmol/L Normal 21-31 The [facility] Comment on above: Order Comment: No: D o not add to previous draw Performed By: #### 8 [id number] #### [facility] [address] [place] [address], [place] Creatinine [Mass/Vol] 1.14 mg/dL Normal 0.60-1.20 [facility] Comment on above: Order Comment: No: D o not add to previous draw Performed By: #### 8 [id number] #### [facility] [address] [place] [address], [place] eGFR- 55 ml/min/1.73sq m Abnormal >60 [facility] Comment on above: Order Comment: No: D o not add to previous draw Result Comment: Calc ulation may not be valid for patients over 70 years Performed By: #### 8 [id number] #### [facility] [address] [place] [address], [facility] eGFR- non- 45 ml/min/1.73sq m Abnormal >60 [facility] Comment on above: Order Comment: No: D o not add to previous draw Result Comment: Calc ulation may not be valid for patients over 70 years Performed By: #### 8 [id number] #### [facility] [address] [place] [address], [place] Glucose [Mass/Vol] 96 mg/dL Normal 70-100 [facility] Comment on above: Order Comment: No: D o not add to previous draw Performed By: #### 8 [id number] #### [facility] [address] [place] [address], [place] Potassium [Moles/Vol] 4.0 mmol/L Normal 3.5-5.1 [facility] Comment on above: Order Comment: No: D o not add to previous draw Performed By: #### 8 [id number] #### [facility] [address] [place] [address], [place] Sodium [Moles/Vol] 139 mmol/L Normal 136-145 [facility] Comment on above: Order Comment: No: D o not add to previous draw Performed By: #### 8 [id number] #### [facility] [address] [place] [address], [place] Urea nitrogen [Mass/Vol] 13 mg/dL Normal 7-25 [facility] Comment on above: Order Comment: No: D o not add to previous draw Performed By: #### 8 [id number] #### [facility] [address] [place] [address], [place] CBC COMPLETE BLOOD COUNTon 0 - Erythrocyte distribution width (RBC) [Ratio] 19.3 % High 11.5-15.0 [facility] Comment on above: Order Comment: No: D o not add to previous draw Performed By: #### 5 [id number] #### [facility] [address] [place] [address], [facility] Hematocrit (Bld) [Volume fraction] 27.9 % Low 36.0-45.0 [facility] Comment on above: Order Comment: No: D o not add to previous draw Performed By: #### 5 [id number] #### [facility] [address] [place] [address], [facility] Hemoglobin (Bld) [Mass/Vol] 8.4 g/dL Low 12.0-15.0 [facility] Comment on above: Order Comment: No: D o not add to previous draw Performed By: #### 5 [id number] #### [facility] [address] [facility] [place] [address], [facility] MCH (RBC) [Entitic mass] 29.9 pg Normal 27.0-33.0 [facility] Comment on above: Order Comment: No: D o not add to previous draw Performed By: #### 5 [id number] #### [facility] [address] [facility] [place] [address], [facility] MCHC (RBC) [Mass/Vol] 30.1 g/dL Low 32.0-35.0 [facility] Comment on above: Order Comment: No: D o not add to previous draw Performed By: #### 5 [id number] #### [facility] [address] [facility] [place] [address], [facility] MCV (RBC) [Entitic vol] 99.3 fL High 82.0-98.0 [facility] Comment on above: Order Comment: No: D o not add to previous draw Performed By: #### 5 [id number] #### [facility] [address] [facility] [place] [address], [facility] Nucleated RBC/100 WBC (Bld) [Ratio] 0 % Normal 0-0 [facility] Comment on above: Order Comment: No: D o not add to previous draw Performed By: #### 5 [id number] #### [facility] [address] [place] [address], [place] PLAT CNT 281 10*3/uL Normal 150-400 [facility] Comment on above: Order Comment: No: D o not add to previous draw Performed By: #### 5 [id number] #### [facility] [address] [place] [address], [place] RBC (Bld) [#/Vol] 2.81 10*6/uL Low 3.80-5.00 The [facility] Comment on above: Order Comment: No: D o not add to previous draw Performed By: #### 5 [id number] #### [facility] [address] [place] [address], [place] WBC (Bld) [#/Vol] 22.46 10*3/uL High 4.00-10.60 [facility] Comment on above: Order Comment: No: D o not add to previous draw Performed By: #### 5 [id number] #### [facility] [address] [place] [address], [place] MAGNESIUM BLOODon 04-07-2022 Magnesium [Mass/Vol] 1.7 mg/dL Low 1.9-2.7 [facility] Comment on above: Order Comment: No: D o not add to previous draw Performed By: #### 8 [id number] #### [facility] [address] [place] [address], [place] POC GLUCOSE LABon 04-07-2022 Glucose [Mass/Vol] 192 mg/dL High 70-100 The [facility] Comment on above: Performed By: #### 8 [id number] ####[facility] [place] [address], [place] Glucose [Mass/Vol] 139 mg/dL High 70-100 [facility] Comment on above: Performed By: #### 8 [id number] #### [facility] [address] [place] [address], [place] Glucose [Mass/Vol] 144 mg/dL High 70-100 [facility] Comment on above: Performed By: #### 8 [id number] #### [facility] [address] [place] [address], [place] Glucose [Mass/Vol] 111 mg/dL High 70-100 [facility] Comment on above: Performed By: #### 8 [id number] #### [facility] [address] [place] [address], [place] BASIC METABOLIC PANELon 05-2 0-2021 Calcium [Mass/Vol] 8.2 mg/dL Low 8.6-10.3 The [facility] Comment on above: Order Comment: Bleed , altereed mental status Performed By: #### 0 0071, 37445, 07178, 13106, 04310 ####[facility] [place] [address], [place] Chloride [Moles/Vol] 106 mmol/L Normal 98-107 The [facility] Comment on above: Order Comment: Bleed , altereed mental status Performed By: #### 0 0071, 80966, 88817, 74579, 15345 ####[facility] [place] [address], [place] CO2 [Moles/Vol] 27 mmol/L Normal 21-31 The [facility] Comment on above: Order Comment: Bleed , altereed mental status Performed By: #### 0 0071, 86366, 98818, 87371, 33237 ####[facility] [place] [address], [place] Creatinine [Mass/Vol] 1.07 mg/dL Normal 0.60-1.20 The [facility] Comment on above: Order Comment: Bleed , altereed mental status Performed By: #### 0 0071, 86865, 68051, 77013, 39672 ####[facility] [place] [address], [facility] eGFR- 59 ml/min/1.73sq m Abnormal >60 The [facility] Comment on above: Order Comment: Bleed , altereed mental status Result Comment: Calc ulation may not be valid for patients over 70 years Performed By: #### 0 0071, 87024, 36958, 69928, 84919 ####[facility] [place] [address], [facility] eGFR- non- 49 ml/min/1.73sq m Abnormal >60 The [facility] Comment on above: Order Comment: Bleed , altereed mental status Result Comment: Calc ulation may not be valid for patients over 70 years Performed By: #### 0 0071, 86248, 33372, 29525, 07625 ####[facility] [place] [address], [facility] Glucose [Mass/Vol] 100 mg/dL Normal 70-100 The [facility] Comment on above: Order Comment: Bleed , altereed mental status Performed By: #### 0 0071, 59267, 56157, 32936, 77981 ####[facility] [facility] [place] [address], [facility] Potassium [Moles/Vol] 4.0 mmol/L Normal 3.5-5.1 The [facility] Comment on above: Order Comment: Bleed , altereed mental status Performed By: #### 0 0071, 38075, 89900, 25192, 72820 ####[facility] [place] [address], [place] Sodium [Moles/Vol] 139 mmol/L Normal 136-145 The [facility] Comment on above: Order Comment: Bleed , altereed mental status Performed By: #### 0 0071, 48826, 56167, 25633, 16430 ####[facility] [place] [address], [place] Urea nitrogen [Mass/Vol] 15 mg/dL Normal 7-25 The [facility] Comment on above: Order Comment: Bleed , altereed mental status Performed By: #### 0 0071, 11593, 91703, 06493, 68490 ####[facility] BNP (B-TYPE NATRIURETIC PEPT KAELA)on 04-06-2022 Natriuretic peptide B (Bld) [Mass/Vol] 487 pg/mL High 0-100 The [facility] Comment on above: Order Comment: Yes: Add to Previous draw if able Result Comment: Give n the appropriate clinical setting a BNP result of >100 pg/mL indicates congestive heart failure. Performed By: #### 8 [id number] #### [facility] [address] [place] [address], [facility] CBC W/DIFFon 04-06-2022 ABS IMM GRANS 0.5 10*3/uL High 0.0-0.2 The [facility] Comment on above: Order Comment: No: D o not add to previous draw Performed By: #### 8 5499 #### [facility] [address] [place] [address], [facility] ABS NEUTROPHILS 18.4 10*3/uL High 1.6-7.6 The [facility] Comment on above: Order Comment: No: D o not add to previous draw Performed By: #### 8 [id number] #### [facility] [address] [place] [address], [facility] Basophils (Bld) [#/Vol] 0.1 10*3/uL Normal 0.0-0.2 The [facility] Comment on above: Order Comment: No: D o not add to previous draw Performed By: #### 8 [id number] #### [facility] [address] [place] [address], [facility] Basophils/100 WBC (Bld) 0.5 % Normal 0.0-1.0 The [facility] Comment on above: Order Comment: No: D o not add to previous draw Performed By: #### 8 [id number] #### [facility] [address] [place] [address], [facility] Eosinophils (Bld) [#/Vol] 0.0 10*3/uL Normal 0.0-0.5 The [facility] Comment on above: Order Comment: No: D o not add to previous draw Performed By: #### 8 5499 #### [facility] [address] [place] [address], [facility] Eosinophils/100 WBC (Bld) 0.0 % Normal 0.0-6.0 The [facility] Comment on above: Order Comment: No: D o not add to previous draw Performed By: #### 8 [id number] #### [facility] [address] [place] [address], [facility] Erythrocyte distribution width (RBC) [Ratio] 19.4 % High 11.5-15.0 The [facility] Comment on above: Order Comment: No: D o not add to previous draw Performed By: #### 8 [id number] #### [facility] [address] [place] [address], [facility] Hematocrit (Bld) [Volume fraction] 28.6 % Low 36.0-45.0 The [facility] Comment on above: Order Comment: No: D o not add to previous draw Performed By: #### 8 [id number] #### [facility] [address] [place] [address], [facility] Hemoglobin (Bld) [Mass/Vol] 8.8 g/dL Low 12.0-15.0 The [facility] Comment on above: Order Comment: No: D o not add to previous draw Performed By: #### 8 5499 #### [facility] [address] [place] [address], [place] IMMATURE GRANS 2.3 % High 0.0-1.0 The [facility] Comment on above: Order Comment: No: D o not add to previous draw Performed By: #### 8 5499 #### [facility] [address] [place] [address], [facility] Lymphocytes (Bld) [#/Vol] 1.5 10*3/uL Normal 1.2-4.0 The [facility] Comment on above: Order Comment: No: D o not add to previous draw Performed By: #### 8 5499 #### [facility] [address] [place] [address], [facility] Lymphocytes/100 WBC (Bld) 7.2 % Low 20.0-45.0 The [facility] Comment on above: Order Comment: No: D o not add to previous draw Performed By: #### 8 5499 #### [facility] [address] [place] [id number], [facility] MCH (RBC) [Entitic mass] 30.1 pg Normal 27.0-33.0 The [facility] Comment on above: Order Comment: No: D o not add to previous draw Performed By: #### 8 [id number] #### [facility] [address] [facility] [place] [id number], [facility] MCHC (RBC) [Mass/Vol] 30.8 g/dL Low 32.0-35.0 The [facility] Comment on above: Order Comment: No: D o not add to previous draw Performed By: #### 8 5499 #### [facility] [address] [place] [id number], [facility] MCV (RBC) [Entitic vol] 97.9 fL Normal 82.0-98.0 The [facility] Comment on above: Order Comment: No: D o not add to previous draw Performed By: #### 8 [id number] #### [facility] [address] [place] [address], [facility] Monocytes (Bld) [#/Vol] 0.3 10*3/uL Normal 0.1-1.0 The [facility] Comment on above: Order Comment: No: D o not add to previous draw Performed By: #### 8 [id number] #### [facility] [address] [place] [address], [facility] MONOS 1.6 % Low 5.0-12.0 The [facility] Comment on above: Order Comment: No: D o not add to previous draw Performed By: #### 8 5499 #### [facility] [address] [place] [id number], [facility] Neutrophils/100 WBC (Bld) 88.4 % High 40.0-72.0 The [facility] Comment on above: Order Comment: No: D o not add to previous draw Performed By: #### 8 [id number] #### [facility] [address] [place] [address], [facility] Nucleated RBC/100 WBC (Bld) [Ratio] 0 % Normal 0-0 The [facility] Comment on above: Order Comment: No: D o not add to previous draw Performed By: #### 8 [id number] #### [facility] [address] [place] [address], [place] PLAT CNT 279 10*3/uL Normal 150-400 The [facility] Comment on above: Order Comment: No: D o not add to previous draw Performed By: #### 8 [id number] #### [facility] [address] [place] [id number], [facility] RBC (Bld) [#/Vol] 2.92 10*6/uL Low 3.80-5.00 The [facility] Comment on above: Order Comment: No: D o not add to previous draw Performed By: #### 8 [id number] #### [facility] [address] [place] [address], [place] WBC (Bld) [#/Vol] 20.84 10*3/uL High 4.00-10.60 The [facility] Comment on above: Order Comment: No: D o not add to previous draw Performed By: #### 8 [id number] #### [facility] [address] [place] [address], [facility] DIGOXINon 04-06-2022 Digoxin [Mass/Vol] 1.0 ng/mL Normal 0.7-2.0 The [facility] Comment on above: Performed By: #### 0 0071, 64884, 36148, 02088, 79915 ####[facility] [place] [address], [facility] LIPASE BLOODon 04-06-2022 LIPASE 68 Units/L Normal 11-82 The [facility] Comment on above: Performed By: #### 0 0071, 80125, 67739, 06710, 91433 ####[facility] [facility] [place] [address], [facility] MAGNESIUM BLOODon 04-06-2022 Magnesium [Mass/Vol] 1.6 mg/dL Low 1.9-2.7 The [facility] Comment on above: Order Comment: Bleed , altereed mental status Performed By: #### 0 0071, 99233, 73730, 38545, 96374 ####[facility] [facility] [place] [address], [facility] PHOSPHORUS BLOODon Phosphate [Mass/Vol] 3.5 mg/dL Normal 2.5-5.0 The [facility] Comment on above: Order Comment: No: D o not add to previous draw Performed By: #### 8 [id number] #### [facility] [address] [place] [address], [facility] POC GLUCOSE LABon 04-06-2022 Glucose [Mass/Vol] 121 mg/dL High 70-100 The [facility] Comment on above: Performed By: #### 3 0313 #### [facility] [address] [place] [address], [place] Glucose [Mass/Vol] 171 mg/dL High 70-100 The [facility] Comment on above: Performed By: #### 8 [id number] #### [facility] [address] [place] [address], [facility] Glucose [Mass/Vol] 178 mg/dL High 70-100 The [facility] Comment on above: Performed By: #### 8 [id number] #### [facility] [address] [facility] [place] [address], [facility] Glucose [Mass/Vol] 102 mg/dL High 70-100 The [facility] Comment on above: Performed By: #### 5 0608 #### [facility] [address] [facility]. [address] APTTon 04-05-2022 aPTT Coag (Bld) [Time] 29.7 s Normal 25.0-35.0 The [facility] Comment on above: Order Comment: No: [...] PURPOSE. Performed By: #### 8 [id number] #### [facility] [address] [facility]. [address] CBC W/DIFFon 04-05-2022 ABS IMM GRANS 0.4 10*3/uL High 0.0-0.2 The [facility] Comment on above: Order Comment: No: D o not add to previous draw Performed By: #### 8 5499 #### [facility] [address] [facility] [place] [place] [address], [facility] ABS NEUTROPHILS 19.7 10*3/uL High 1.6-7.6 The [facility] Comment on above: Order Comment: No: D o not add to previous draw Performed By: #### 8 [id number] #### [facility] [address] [place] [address], [facility] ANISO Moderate Normal The [facility] Comment on above: Order Comment: No: D o not add to previous draw Performed By: #### 8 5499 #### [facility] [address] [place] [address], [place] Basophils (Bld) [#/Vol] 0.2 10*3/uL Normal 0.0-0.2 The [facility] Comment on above: Order Comment: No: D o not add to previous draw Performed By: #### 8 [id number] #### [facility] [address] [place] [address], [facility] Basophils/100 WBC (Bld) 0.7 % Normal 0.0-1.0 The [facility] Comment on above: Order Comment: No: D o not add to previous draw Performed By: #### 8 [id number] #### [facility] [address] [place] [address], [place] Eosinophils (Bld) [#/Vol] 0.0 10*3/uL Normal 0.0-0.5 The [facility] Comment on above: Order Comment: No: D o not add to previous draw Performed By: #### 8 5499 #### [facility] [address] [place] [address], [facility] Eosinophils/100 WBC (Bld) 0.1 % Normal 0.0-6.0 The [facility] Comment on above: Order Comment: No: D o not add to previous draw Performed By: #### 8 [id number] #### [facility] [address] [place] [address], [place] Erythrocyte distribution width (RBC) [Ratio] 19.5 % High 11.5-15.0 The [facility] Comment on above: Order Comment: No: D o not add to previous draw Performed By: #### 8 [id number] #### [facility] [address] Hematocrit (Bld) [Volume fraction] 27.8 % Low 36.0-45.0 The [facility] Comment on above: Order Comment: No: D o not add to previous draw Performed By: #### 8 [id number] #### [facility] [address] [facility] [place] [address], [facility] Hemoglobin (Bld) [Mass/Vol] 8.6 g/dL Low 12.0-15.0 The [facility] Comment on above: Order Comment: No: D o not add to previous draw Performed By: #### 8 [id number] #### [facility] [address] [place] [address], [facility] IMMATURE GRANS 2.0 % High 0.0-1.0 The [facility] Comment on above: Order Comment: No: D o not add to previous draw Performed By: #### 8 5499 #### [facility] [address] [facility] [place] [address], [facility] Lymphocytes (Bld) [#/Vol] 1.4 10*3/uL Normal 1.2-4.0 The [facility] Comment on above: Order Comment: No: D o not add to previous draw Performed By: #### 8 5499 #### [facility] [address] [place] [address], [facility] Lymphocytes/100 WBC (Bld) 6.5 % Low 20.0-45.0 The [facility] Comment on above: Order Comment: No: D o not add to previous draw Performed By: #### 8 [id number] #### [facility] [address] [place] [address], [facility] MCH (RBC) [Entitic mass] 30.3 pg Normal 27.0-33.0 The [facility] Comment on above: Order Comment: No: D o not add to previous draw Performed By: #### 8 [id number] #### [facility] [address] [facility] MCHC (RBC) [Mass/Vol] 30.9 g/dL Low 32.0-35.0 The [facility] Comment on above: Order Comment: No: D o not add to previous draw Performed By: #### 8 5499 #### [facility] [address] [place] [id number], [facility] MCV (RBC) [Entitic vol] 97.9 fL Normal 82.0-98.0 The [facility] Comment on above: Order Comment: No: D o not add to previous draw Performed By: #### 8 [id number] #### [facility] [address] [place] [address], [facility] Monocytes (Bld) [#/Vol] 0.4 10*3/uL Normal 0.1-1.0 The [facility] Comment on above: Order Comment: No: D o not add to previous draw Performed By: #### 8 [id number] #### [facility] [address] [place] [address], [facility] MONOS 1.9 % Low 5.0-12.0 [facility] Comment on above: Order Comment: No: D o not add to previous draw Performed By: #### 8 [id number] #### [facility] [address] [place] [address], [facility] Neutrophils/100 WBC (Bld) 88.8 % High 40.0-72.0 The [facility] Comment on above: Order Comment: No: D o not add to previous draw Performed By: #### 8 [id number] #### [facility] [address] [place] [address], [facility] Nucleated RBC/100 WBC (Bld) [Ratio] 0 % Normal 0-0 The [facility] Comment on above: Order Comment: No: D o not add to previous draw Performed By: #### 8 [id number] #### [facility] [address] [place] [id number], [facility] PLAT CNT 303 10*3/uL Normal 150-400 The [facility] Comment on above: Order Comment: No: D o not add to previous draw Performed By: #### 8 [id number] #### [facility] [address] POIK Slight Normal The [facility] Comment on above: Order Comment: No: D o not add to previous draw Performed By: #### 8 5499 #### [facility] [address] [facility]. [address] POLY Slight Normal [facility] Comment on above: Order Comment: No: D o not add to previous draw Performed By: #### 8 [id number] #### [facility] [address] RBC (Bld) [#/Vol] 2.84 10*6/uL Low 3.80-5.00 The [facility] Comment on above: Order Comment: No: D o not add to previous draw Performed By: #### 8 [id number] #### [facility] [address] [facility]. [address] WBC (Bld) [#/Vol] 22.20 10*3/uL High 4.00-10.60 [facility] Comment on above: Order Comment: No: D o not add to previous draw Performed By: #### 8 [id number] #### [facility] [address] [facility]. [address] COMP METABOLIC PANELon 04-05 Albumin [Mass/Vol] 2.5 g/dL Low 3.5-5.[address] [facility] Comment on above: Order Comment: The A ptima SARS-CoV-2 assay is a nucleic acid amplification test intended for the qualitative detection of RNA from SARS-CoV-2 isolated and purified from nasopharyngeal (MEDICATION SPECIALIST),oropharyngeal (OP), nasal swab, sputum, and bronchoalveolar lavage (BAL) specimens from patients with signs and symptoms of infection who are suspected of COVID-19. Results are for the identification of SARS-CoV-2 RNA. The SARS-CoV-2 RNA is generally detectable during the acute phase of infection. The Aptima SARS-CoV-2 Assay on the [employer] system is intended for use by laboratory personnel specifically instructed and trained in the operation of the [employer] system. The Aptima SARS-CoV-2 assay is [...] information. Performed By: #### 3 1792 #### [facility] [address] [facility] [address] ALKALINE PHOSPH 100 IU/L Normal 34-104 The [facility] Comment on above: Order Comment: The A ptima SARS-CoV-2 assay is a nucleic acid amplification test intended for the qualitative detection of RNA from SARS-CoV-2 isolated and purified from nasopharyngeal (MEDICATION SPECIALIST),oropharyngeal (OP), nasal swab, sputum, and bronchoalveolar lavage (BAL) specimens from patients with signs and symptoms of infection who are suspected of COVID-19. Results are for the identification of SARS-CoV-2 RNA. The SARS-CoV-2 RNA is generally detectable during the acute phase of infection. The Aptima SARS-CoV-2 Assay on the [employer] system is intended for use by laboratory personnel specifically instructed and trained in the operation of the [employer] system. The Aptima SARS-CoV-2 assay is [...] and epidemiological information. Performed By: #### 3 1272 #### [facility] [address] [facility] [place] [address], [facility] ALT [Catalytic activity/Vol] 13 U/L Normal 7-52 The [facility] Comment on above: Order Comment: The A ptima SARS-CoV-2 assay is a nucleic acid amplification test intended for the qualitative detection of RNA from SARS-CoV-2 isolated and purified from nasopharyngeal (MEDICATION SPECIALIST),oropharyngeal (OP), nasal swab, sputum, and bronchoalveolar lavage (BAL) specimens from patients with signs and symptoms of infection who are suspected of COVID-19. Results are for the identification of SARS-CoV-2 RNA. The SARS-CoV-2 RNA is generally detectable during the acute phase of infection. The Aptima SARS-CoV-2 Assay on the [employer] Fusion system is intended for use by laboratory personnel specifically instructed and trained in the operation of the [employer] system. The Aptima SARS-CoV-2 assay is [...] information. Performed By: #### 3 1792 #### [facility] [address] [facility] [place] [address], [facility] AST [Catalytic activity/Vol] 12 U/L Low 13-39 The [facility] Comment on above: Order Comment: The A ptima SARS-CoV-2 assay is a nucleic acid amplification test intended for the qualitative detection of RNA from SARS-CoV-2 isolated and purified from nasopharyngeal (MEDICATION SPECIALIST),oropharyngeal (OP), nasal swab, sputum, and bronchoalveolar lavage (BAL) specimens from patients with signs and symptoms of infection who are suspected of COVID-19. Results are for the identification of SARS-CoV-2 RNA. The SARS-CoV-2 RNA is generally detectable during the acute phase of infection. The Aptima SARS-CoV-2 Assay on the [employer] system is intended for use by laboratory personnel specifically instructed and trained in the operation of the [employer] system. The Aptima SARS-CoV-2 assay is [...] information. Performed By: #### 3 1792 #### [facility] [address] [place] [address], [facility] Bilirubin [Mass/Vol] 0.8 mg/dL Normal 0.3-1.0 The [facility] Comment on above: Order Comment: The A ptima SARS-CoV-2 assay is a nucleic acid amplification test intended for the qualitative detection of RNA from SARS-CoV-2 isolated and purified from nasopharyngeal (MEDICATION SPECIALIST),oropharyngeal (OP), nasal swab, sputum, and bronchoalveolar lavage (BAL) specimens from patients with signs and symptoms of infection who are suspected of COVID-19. Results are for the identification of SARS-CoV-2 RNA. The SARS-CoV-2 RNA is generally detectable during the acute phase of infection. The Aptima SARS-CoV-2 Assay on the [employer] system is intended for use by laboratory personnel specifically instructed and trained in the operation of the [employer] system. The Aptima SARS-CoV-2 assay is [...] information. Performed By: #### 3 1792 #### [facility] [address] [place] [address], [facility] Calcium [Mass/Vol] 8.1 mg/dL Low 8.6-10.3 [facility] Comment on above: Order Comment: The A ptima SARS-CoV-2 assay is a nucleic acid amplification test intended for the qualitative detection of RNA from SARS-CoV-2 isolated and purified from nasopharyngeal (MEDICATION SPECIALIST),oropharyngeal (OP), nasal swab, sputum, and bronchoalveolar lavage (BAL) specimens from patients with signs and symptoms of infection who are suspected of COVID-19. Results are for the identification of SARS-CoV-2 RNA. The SARS-CoV-2 RNA is generally detectable during the acute phase of infection. The Aptima SARS-CoV-2 Assay on the Entigo and Entigo Fusion system is intended for use by laboratory personnel specifically instructed and trained in the operation of the Entigo [employer] system. The Aptima SARS-CoV-2 assay is [...] information. Performed By: #### 3 1792 #### [address] Chloride [Moles/Vol] 106 mmol/L Normal 98-107 [facility] Comment on above: Order Comment: The A ptima SARS-CoV-2 assay is a nucleic acid amplification test intended for the qualitative detection of RNA from SARS-CoV-2 isolated and purified from nasopharyngeal (MEDICATION SPECIALIST),oropharyngeal (OP), nasal swab, sputum, and bronchoalveolar lavage (BAL) specimens from patients with signs and symptoms of infection who are suspected of COVID-19. Results are for the identification of SARS-CoV-2 RNA. The SARS-CoV-2 RNA is generally detectable during the acute phase of infection. The Aptima SARS-CoV-2 Assay on the [employer]igo [employer] Entigo Fusion system is intended for use by laboratory personnel specifically instructed and trained in the operation of the [employer]arre [employer] system. The Aptima SARS-CoV-2 assay is [...] information. Performed By: #### 3 [id number] #### [facility] [address] [place] [address], [facility] CO2 [Moles/Vol] 26 mmol/L Normal 21-31 [facility] Comment on above: Order Comment: The A ptima SARS-CoV-2 assay is a nucleic acid amplification test intended for the qualitative detection of RNA from SARS-CoV-2 isolated and purified from nasopharyngeal (MEDICATION SPECIALIST),oropharyngeal (OP), nasal swab, sputum, and bronchoalveolar lavage (BAL) specimens from patients with signs and symptoms of infection who are suspected of COVID-19. Results are for the identification of SARS-CoV-2 RNA. The SARS-CoV-2 RNA is generally detectable during the acute phase of infection. The Aptima SARS-CoV-2 Assay on the [employer]arre and Navarre Fusion system is intended for use by laboratory personnel specifically instructed and trained in the operation of the Navarre [employer]arre [employer] system. The Aptima SARS-CoV-2 assay is [...] information. Performed By: #### 3 [id number] #### [facility] [address] [place] [address], [facility] Creatinine [Mass/Vol] 1.24 mg/dL High 0.60-1.20 [facility] Comment on above: Order Comment: The A ptima SARS-CoV-2 assay is a nucleic acid amplification test intended for the qualitative detection of RNA from SARS-CoV-2 isolated and purified from nasopharyngeal (MEDICATION SPECIALIST),oropharyngeal (OP), nasal swab, sputum, and bronchoalveolar lavage (BAL) specimens from patients with signs and symptoms of infection who are suspected of COVID-19. Results are for the identification of SARS-CoV-2 RNA. The SARS-CoV-2 RNA is generally detectable during the acute phase of infection. The Aptima SARS-CoV-2 Assay on the [employer]arre and Navarre Fusion system is intended for use by laboratory personnel specifically instructed and trained in the operation of the [employer]arre and [employer] system. The Aptima SARS-CoV-2 assay is [...] information. Performed By: #### 3 1792 #### [facility] [address] [facility]. [address] eGFR- 50 ml/min/1.73sq m Abnormal >60 [facility] Comment on above: Order Comment: The A ptima SARS-CoV-2 assay is a nucleic acid amplification test intended for the qualitative detection of RNA from SARS-CoV-2 isolated and purified from nasopharyngeal (MEDICATION SPECIALIST),oropharyngeal (OP), nasal swab, sputum, and bronchoalveolar lavage (BAL) specimens from patients with signs and symptoms of infection who are suspected of COVID-19. Results are for the identification of SARS-CoV-2 RNA. The SARS-CoV-2 RNA is generally detectable during the acute phase of infection. The Aptima SARS-CoV-2 Assay on the [employer] and [employer]arre Fusion system is intended for use by laboratory personnel specifically instructed and trained in the operation of the Navarre and [employer] system. The Aptima SARS-CoV-2 assay is [...] years Performed By: #### 3 1792 #### [facility] [address] [place] [address], [facility] eGFR- non- 42 ml/min/1.73sq m Abnormal >60 [facility] Comment on above: Order Comment: The A ptima SARS-CoV-2 assay is a nucleic acid amplification test intended for the qualitative detection of RNA from SARS-CoV-2 isolated and purified from nasopharyngeal (MEDICATION SPECIALIST),oropharyngeal (OP), nasal swab, sputum, and bronchoalveolar lavage (BAL) specimens from patients with signs and symptoms of infection who are suspected of COVID-19. Results are for the identification of SARS-CoV-2 RNA. The SARS-CoV-2 RNA is generally detectable during the acute phase of infection. The Aptima SARS-CoV-2 Assay on the [employer]re and [employer]arre Fusion system is intended for use by laboratory personnel specifically instructed and trained in the operation of the Navarre and [employer]arre Fusion system. The Aptima SARS-CoV-2 assay is [...] years Performed By: #### 3 1792 #### [facility] [address] [place] [address], [facility] Glucose [Mass/Vol] 95 mg/dL Normal 70-100 [facility] Comment on above: Order Comment: The A ptima SARS-CoV-2 assay is a nucleic acid amplification test intended for the qualitative detection of RNA from SARS-CoV-2 isolated and purified from nasopharyngeal (MEDICATION SPECIALIST),oropharyngeal (OP), nasal swab, sputum, and bronchoalveolar lavage (BAL) specimens from patients with signs and symptoms of infection who are suspected of COVID-19. Results are for the identification of SARS-CoV-2 RNA. The SARS-CoV-2 RNA is generally detectable during the acute phase of infection. The Aptima SARS-CoV-2 Assay on the Nav[employer]re and Navarre Fusion system is intended for use by laboratory personnel specifically instructed and trained in the operation of the Navarre and [employer]arre Fusion system. The Aptima SARS-CoV-2 assay is [...] information. Performed By: #### 3 1792 #### [address] Potassium [Moles/Vol] 4.1 mmol/L Normal 3.5-5.1 [facility] Comment on above: Order Comment: The A ptima SARS-CoV-2 assay is a nucleic acid amplification test intended for the qualitative detection of RNA from SARS-CoV-2 isolated and purified from nasopharyngeal (MEDICATION SPECIALIST),oropharyngeal (OP), nasal swab, sputum, and bronchoalveolar lavage (BAL) specimens from patients with signs and symptoms of infection who are suspected of COVID-19. Results are for the identification of SARS-CoV-2 RNA. The SARS-CoV-2 RNA is generally detectable during the acute phase of infection. The Aptima SARS-CoV-2 Assay on the [employer] and Navarre Fusion system is intended for use by laboratory personnel specifically instructed and trained in the operation of the Navarre and [employer]ar[employer] Fusion system. The Aptima SARS-CoV-2 assay is [...] information. Performed By: #### 3 1792 #### [facility] [address] [facility] [place] [address], [facility] Protein [Mass/Vol] 5.0 g/dL Low 6.0-8.3 [facility] Comment on above: Order Comment: The A ptima SARS-CoV-2 assay is a nucleic acid amplification test intended for the qualitative detection of RNA from SARS-CoV-2 isolated and purified from nasopharyngeal (MEDICATION SPECIALIST),oropharyngeal (OP), nasal swab, sputum, and bronchoalveolar lavage (BAL) specimens from patients with signs and symptoms of infection who are suspected of COVID-19. Results are for the identification of SARS-CoV-2 RNA. The SARS-CoV-2 RNA is generally detectable during the acute phase of infection. The Aptima SARS-CoV-2 Assay on the Entigo and [employer] Fusion system is intended for use by laboratory personnel specifically instructed and trained in the operation of the Navarre and Entigo Fusion system. The Aptima SARS-CoV-2 assay is [...] information. Performed By: #### 3 1792 #### [facility] [address] [facility] [place] [address], [facility] Sodium [Moles/Vol] 138 mmol/L Normal 136-145 [facility] Comment on above: Order Comment: The A ptima SARS-CoV-2 assay is a nucleic acid amplification test intended for the qualitative detection of RNA from SARS-CoV-2 isolated and purified from nasopharyngeal (MEDICATION SPECIALIST),oropharyngeal (OP), nasal swab, sputum, and bronchoalveolar lavage (BAL) specimens from patients with signs and symptoms of infection who are suspected of COVID-19. Results are for the identification of SARS-CoV-2 RNA. The SARS-CoV-2 RNA is generally detectable during the acute phase of infection. The Aptima SARS-CoV-2 Assay on the Navarre and Navarre Fusion system is intended for use by laboratory personnel specifically instructed and trained in the operation of the Navarre and Navarre Fusion system. The Aptima SARS-CoV-2 assay is [...] information. Performed By: #### 3 1792 #### [address] Urea nitrogen [Mass/Vol] 24 mg/dL Normal 7-25 [facility] Comment on above: Order Comment: The A ptima SARS-CoV-2 assay is a nucleic acid amplification test intended for the qualitative detection of RNA from SARS-CoV-2 isolated and purified from nasopharyngeal (MEDICATION SPECIALIST),oropharyngeal (OP), nasal swab, sputum, and bronchoalveolar lavage (BAL) specimens from patients with signs and symptoms of infection who are suspected of COVID-19. Results are for the identification of SARS-CoV-2 RNA. The SARS-CoV-2 RNA is generally detectable during the acute phase of infection. The Aptima SARS-CoV-2 Assay on the Navarre and Navarre Fusion system is intended for use by laboratory personnel specifically instructed and trained in the operation of the Navarre and [employer]arre Fusion system. The Aptima SARS-CoV-2 assay is [...] information. Performed By: #### 3 1792 #### [facility] [address] [facility] [place] [address], [facility] HEMOGLOBINon 04-05-2022 Hemoglobin (Bld) [Mass/Vol] 8.9 g/dL Low 12.0-15.0 [facility] Comment on above: Order Comment: No: D o not add to previous draw Performed By: #### 8 [id number] #### [facility] [address] [facility] [place] [address], [facility] Hemoglobin (Bld) [Mass/Vol] 10.1 g/dL Low 12.0-15.0 [facility] Comment on above: Order Comment: No: D o not add to previous draw Performed By: #### 8 [id number] #### [facility] [address] MAGNESIUM BLOODon 04-05-2022 Magnesium [Mass/Vol] 1.6 mg/dL Low 1.9-2.7 [facility] Comment on above: Order Comment: The A ptima SARS-CoV-2 assay is a nucleic acid amplification test intended for the qualitative detection of RNA from SARS-CoV-2 isolated and purified from nasopharyngeal (MEDICATION SPECIALIST),oropharyngeal (OP), nasal swab, sputum, and bronchoalveolar lavage (BAL) specimens from patients with signs and symptoms of infection who are suspected of COVID-19. Results are for the identification of SARS-CoV-2 RNA. The SARS-CoV-2 RNA is generally detectable during the acute phase of infection. The Aptima SARS-CoV-2 Assay on the Entigo and [employer] Fusion system is intended for use by laboratory personnel specifically instructed and trained in the operation of the Navarre and Navarre Fusion system. The Aptima SARS-CoV-2 assay is [...] and epidemiological information. Performed By: #### 3 [id number] #### [facility] [address] [place] [address], [facility] PHOSPHORUS BLOODon Phosphate [Mass/Vol] 3.5 mg/dL Normal 2.5-5.0 [facility] Comment on above: Order Comment: The A ptima SARS-CoV-2 assay is a nucleic acid amplification test intended for the qualitative detection of RNA from SARS-CoV-2 isolated and purified from nasopharyngeal (MEDICATION SPECIALIST),oropharyngeal (OP), nasal swab, sputum, and bronchoalveolar lavage (BAL) specimens from patients with signs and symptoms of infection who are suspected of COVID-19. Results are for the identification of SARS-CoV-2 RNA. The SARS-CoV-2 RNA is generally detectable during the acute phase of infection. The Aptima SARS-CoV-2 Assay on the Entigo and Navarre Fusion system is intended for use by laboratory personnel specifically instructed and trained in the operation of the Navarre and Navarre Fusion system. The Aptima SARS-CoV-2 assay is [...] and epidemiological information. Performed By: #### 3 [id number] #### [facility] [address] [place] [address], [facility] POC GLUCOSE LABon 04-05-2022 Glucose [Mass/Vol] 115 mg/dL High 70-100 [facility] Comment on above: Performed By: #### 5 [id number] #### [facility] [address] [place] [address], [facility] Glucose [Mass/Vol] 119 mg/dL High 70-100 [facility] Comment on above: Performed By: #### 8 [id number] #### [facility] [address] [place] [address], [facility] Glucose [Mass/Vol] 145 mg/dL High 70-100 [facility] Comment on above: Performed By: #### 8 [id number] #### [facility] [address] [facility] [place] [id number], [facility] Glucose [Mass/Vol] 108 mg/dL High 70-100 [facility] Comment on above: Performed By: #### 8 [id number] #### [facility] [address] [facility] [place] [address], [facility] Glucose [Mass/Vol] 117 mg/dL High 70-100 [facility] Comment on above: Performed By: #### 8 [id number] #### [facility] [address] PROTHROMBIN TIMEon 2 INR Coag (PPP) [Relative time] 1.13 {INR} Normal 0.91-1.16 [facility] Comment on above: Order Comment: No: [...] 1995;[id number]. Performed By: #### 8 [id number] #### [facility] [address] PT Coag (PPP) [Time] 14.5 s Normal 12.3-14.8 [facility] Comment on above: Order Comment: No: D o not add to previous draw Result Comment: ALL RESULTS MUST BE INTERPRETED WITH RESPECT TO BLOOD DRAWING ARTIFACT OR DILUTION ERROR OF ANTICOAGULANT AT THE TIME OF SAMPLING. Performed By: #### 8 [id number] #### [facility] [address] [facility]. [address] APTTon 04-04-2022 aPTT Coag (Bld) [Time] 31.2 s Normal 25.0-35.0 [facility] Comment on above: Order Comment: No: [...] PURPOSE. Performed By: #### 8 [id number] #### [facility] [address] [facility]. [address] ARTERIAL BLOOD GAS WITH ICAo n 04-04-2022 BASE EXCESS 0 mmol/L Normal -2-3 [facility] Comment on above: Performed By: #### 8 [id number] #### [facility] [address] [facility] [place] [place] [address], [facility] [employer] NASAL CANNULA Normal [facility] Comment on above: Performed By: #### 8 [id number] #### [facility] [address] [place] [address], [facility] HCO3 (Bld) [Moles/Vol] 26 mmol/L Normal 21-28 [facility] Comment on above: Performed By: #### 8 [id number] #### [facility] [address] IONIZED CALCIUM 1.18 mmol/L Normal 1.13-1.32 [facility] Comment on above: Performed By: #### 8 [id number] #### [facility] [address] [facility]. [address] LPM 2.[address] [facility] Comment on above: Performed By: #### 8 [id number] #### [facility] [address] Oxygen (Bld) [Partial pressure] 74 mm[Hg] Low 83-108 [facility] Comment on above: Performed By: #### 8 [id number] #### [facility] [address] Oxygen saturation in Blood 95.4 % Normal 94.0-97.0 [facility] Comment on above: Performed By: #### 8 [id number] #### [facility] [address] PCO2 45 mmHg Normal 35-45 [facility] Comment on above: Performed By: #### 8 [id number] #### [facility] [address] pH (Bld) 7.37 [pH] Normal 7.35-7.45 [facility] Comment on above: Performed By: #### 8 [id number] #### [facility] [address] CBC W/DIFFon 04-04-2022 ABS IMM GRANS 0.7 10*3/uL High 0.0-0.2 [facility] Comment on above: Order Comment: No: D o not add to previous draw Performed By: #### 8 [id number] #### [facility] [address] [place] [address], [facility] ABS NEUTROPHILS 19.9 10*3/uL High 1.6-7.6 [facility] Comment on above: Order Comment: No: D o not add to previous draw Performed By: #### 8 [id number] #### [facility] [address] [place] [address], [place] ANISO Moderate Normal [facility] Comment on above: Order Comment: No: D o not add to previous draw Performed By: #### 8 [id number] #### [facility] [address] [place] [address], [facility] Basophils (Bld) [#/Vol] 0.2 10*3/uL Normal 0.0-0.2 [facility] Comment on above: Order Comment: No: D o not add to previous draw Performed By: #### 8 [id number] #### [facility] [address] [place] [address], [facility] Basophils/100 WBC (Bld) 0.7 % Normal 0.0-1.0 [facility] Comment on above: Order Comment: No: D o not add to previous draw Performed By: #### 8 [id number] #### [facility] [address] [place] [address], [facility] Eosinophils (Bld) [#/Vol] 0.0 10*3/uL Normal 0.0-0.5 [facility] Comment on above: Order Comment: No: D o not add to previous draw Performed By: #### 8 [id number] #### [facility] [address] [place] [address], [facility] Eosinophils/100 WBC (Bld) 0.1 % Normal 0.0-6.0 [facility] Comment on above: Order Comment: No: D o not add to previous draw Performed By: #### 8 [id number] #### [facility] [address] Erythrocyte distribution width (RBC) [Ratio] 20.2 % High 11.5-15.0 [facility] Comment on above: Order Comment: No: D o not add to previous draw Performed By: #### 8 [id number] #### [facility] [address] [place] [id number], [facility] Hematocrit (Bld) [Volume fraction] 28.0 % Low 36.0-45.0 [facility] Comment on above: Order Comment: No: D o not add to previous draw Performed By: #### 8 [id number] #### [facility] [address] [facility] [place] [address], [facility] Hemoglobin (Bld) [Mass/Vol] 8.8 g/dL Low 12.0-15.0 [facility] Comment on above: Order Comment: No: D o not add to previous draw Performed By: #### 8 [id number] #### [facility] [address] [facility] [place] [address], [facility] IMMATURE GRANS 3.0 % High 0.0-1.0 [facility] Comment on above: Order Comment: No: D o not add to previous draw Performed By: #### 8 [id number] #### [facility] [address] [facility] [place] [address], [facility] Lymphocytes (Bld) [#/Vol] 1.1 10*3/uL Low 1.2-4.0 [facility] Comment on above: Order Comment: No: D o not add to previous draw Performed By: #### 8 [id number] #### [facility] [address] [facility] [place] [address], [facility] Lymphocytes/100 WBC (Bld) 5.1 % Low 20.0-45.0 [facility] Comment on above: Order Comment: No: D o not add to previous draw Performed By: #### 8 [id number] #### [facility] [address] [facility] [place] [address], [facility] MCH (RBC) [Entitic mass] 29.9 pg Normal 27.0-33.0 [facility] Comment on above: Order Comment: No: D o not add to previous draw Performed By: #### 8 [id number] #### [facility] [address] [place] [id number], [facility] MCHC (RBC) [Mass/Vol] 31.4 g/dL Low 32.0-35.0 [facility] Comment on above: Order Comment: No: D o not add to previous draw Performed By: #### 8 [id number] #### [facility] [address] [facility] [place] [address], [facility] MCV (RBC) [Entitic vol] 95.2 fL Normal 82.0-98.0 [facility] Comment on above: Order Comment: No: D o not add to previous draw Performed By: #### 8 [id number] #### [facility] [address] [place] [address], [facility] Monocytes (Bld) [#/Vol] 0.4 10*3/uL Normal 0.1-1.0 [facility] Comment on above: Order Comment: No: D o not add to previous draw Performed By: #### 8 [id number] #### [facility] [address] [facility] [place] [address], [facility] MONOS 2.0 % Low 5.0-12.0 [facility] Comment on above: Order Comment: No: D o not add to previous draw Performed By: #### 8 [id number] #### [facility] [address] [facility] [place] [address], [facility] Neutrophils/100 WBC (Bld) 89.1 % High 40.0-72.0 [facility] Comment on above: Order Comment: No: D o not add to previous draw Performed By: #### 8 [id number] #### [facility] [address] Nucleated RBC/100 WBC (Bld) [Ratio] 0 % Normal 0-0 [facility] Comment on above: Order Comment: No: D o not add to previous draw Performed By: #### 8 [id number] #### [facility] [address] [place] [id number], [facility] PLAT CNT 303 10*3/uL Normal 150-400 [facility] Comment on above: Order Comment: No: D o not add to previous draw Performed By: #### 8 [id number] #### [facility] [address] [place] [address], [facility] POIK Slight Normal [facility] Comment on above: Order Comment: No: D o not add to previous draw Performed By: #### 8 [id number] #### [facility] [address] [place] [address], [facility] POLY Slight Normal [facility] Comment on above: Order Comment: No: D o not add to previous draw Performed By: #### 8 [id number] #### [facility] [address] [place] [address], [facility] RBC (Bld) [#/Vol] 2.94 10*6/uL Low 3.80-5.00 [facility] Comment on above: Order Comment: No: D o not add to previous draw Performed By: #### 8 [id number] #### [facility] [address] [place] [address], [facility] WBC (Bld) [#/Vol] 22.35 10*3/uL High 4.00-10.60 [facility] Comment on above: Order Comment: No: D o not add to previous draw Performed By: #### 8 [id number] #### [facility] [address] [place] [id number], [facility] COMP METABOLIC PANELon 04-04 Albumin [Mass/Vol] 2.4 g/dL Low 3.5-5.7 [facility] Comment on above: Order Comment: No: D o not add to previous draw Performed By: #### 8 [id number] #### [facility] [address] [place] [address], [facility] ALKALINE PHOSPH 92 IU/L Normal 34-104 The [facility] Comment on above: Order Comment: No: D o not add to previous draw Performed By: #### 8 [id number] #### [facility] [address] [place] [address], [place] ALT [Catalytic activity/Vol] 12 U/L Normal 7-52 The [facility] Comment on above: Order Comment: No: D o not add to previous draw Performed By: #### 8 [id number] #### [facility] [address] [place] [address], [place] AST [Catalytic activity/Vol] 10 U/L Low 13-39 [facility] Comment on above: Order Comment: No: D o not add to previous draw Performed By: #### 8 [id number] #### [facility] [address] [place] [address], [place] Bilirubin [Mass/Vol] 1.0 mg/dL Normal 0.3-1.0 [facility] Comment on above: Order Comment: No: D o not add to previous draw Performed By: #### 8 [id number] #### [facility] [address] [place] [address], [place] Calcium [Mass/Vol] 7.7 mg/dL Low 8.6-10.3 The [facility] Comment on above: Order Comment: No: D o not add to previous draw Performed By: #### 8 [id number] #### [facility] [address] [place] [address], [place] Chloride [Moles/Vol] 110 mmol/L High 98-107 [facility] Comment on above: Order Comment: No: D o not add to previous draw Performed By: #### 8 [id number] #### [facility] [address] [place] [address], [place] CO2 [Moles/Vol] 24 mmol/L Normal 21-31 [facility] Comment on above: Order Comment: No: D o not add to previous draw Performed By: #### 8 [id number] #### [facility] [address] [place] [address], [place] Creatinine [Mass/Vol] 1.18 mg/dL Normal 0.60-1.20 [facility] Comment on above: Order Comment: No: D o not add to previous draw Performed By: #### 8 [id number] #### [facility] [address] [place] [address], [facility] eGFR- 53 ml/min/1.73sq m Abnormal >60 [facility] Comment on above: Order Comment: No: D o not add to previous draw Result Comment: Calc ulation may not be valid for patients over 70 years Performed By: #### 8 [id number] #### [facility] [address] [place] [address], [facility] eGFR- non- 44 ml/min/1.73sq m Abnormal >60 [facility] Comment on above: Order Comment: No: D o not add to previous draw Result Comment: Calc ulation may not be valid for patients over 70 years Performed By: #### 8 [id number] #### [facility] [address] [place] [address], [place] Glucose [Mass/Vol] 90 mg/dL Normal 70-[address] [facility] Comment on above: Order Comment: No: D o not add to previous draw Performed By: #### 8 [id number] #### [facility] [address] [place] [address], [place] Potassium [Moles/Vol] 4.3 mmol/L Normal 3.5-5.1 [facility] Comment on above: Order Comment: No: D o not add to previous draw Performed By: #### 8 [id number] #### [facility] [address] [place] [address], [facility] Protein [Mass/Vol] 4.8 g/dL Low 6.0-8.3 The [facility] Comment on above: Order Comment: No: D o not add to previous draw Performed By: #### 8 [id number] #### [facility] [address] [place] [address], [facility] Sodium [Moles/Vol] 140 mmol/L Normal 136-145 The [facility] Comment on above: Order Comment: No: D o not add to previous draw Performed By: #### 8 [id number] #### [facility] [address] [place] [address], [facility] Urea nitrogen [Mass/Vol] 37 mg/dL High 7-25 [facility] Comment on above: Order Comment: No: D o not add to previous draw Performed By: #### 8 [id number] #### [facility] [address] [place] [address], [facility] Endoscopy Reporton 2 Endoscopy Report MR#: [id number] [facility] Pt. Name: María Elena Tafoya Surgery Date: 04/03/2022 Room #: [facility] [id number] Date of : 1940 PROCEDURE NOTE ATTENDING: [...] Janet Olivo M.D. Date Trans: 04/04/2022 04:28 Kate/erik [id number] cc: Bennie Albright M.D. [address], [facility] [place] [address] Normal [facility] HEMOGLOBINon 04-04-2022 Hemoglobin (Bld) [Mass/Vol] 9.4 g/dL Low 12.0-15.0 [facility] Comment on above: Order Comment: No: D o not add to previous draw Performed By: #### 8 [id number] #### [facility] [address] [address], [facility] Hemoglobin (Bld) [Mass/Vol] 9.5 g/dL Low 12.0-15.0 [facility] Comment on above: Order Comment: No: D o not add to previous draw Performed By: #### 5 [id number] #### [facility] [address] [place] [address], [facility] Hemoglobin (Bld) [Mass/Vol] 8.9 g/dL Low 12.0-15.0 [facility] Comment on above: Order Comment: No: D o not add to previous draw Performed By: #### 8 [id number] #### [facility] [address] [place] [address], [facility] MAGNESIUM BLOODon 04-04-2022 Magnesium [Mass/Vol] 1.6 mg/dL Low 1.9-2.7 [facility] Comment on above: Order Comment: No: D o not add to previous draw Performed By: #### 8 [id number] #### [facility] [address] [place] [address], [facility] PHOSPHORUS BLOODon Phosphate [Mass/Vol] 3.8 mg/dL Normal 2.5-5.0 [facility] Comment on above: Order Comment: No: D o not add to previous draw Performed By: #### 8 [id number] #### [facility] [address] [place] [address], [place] POC GLUCOSE LABon 04-04-2022 Glucose [Mass/Vol] 123 mg/dL High 70-100 [facility] Comment on above: Performed By: #### 5 [id number] #### [facility] [address] [place] [address], [place] Glucose [Mass/Vol] 152 mg/dL High 70-100 The [facility] Comment on above: Performed By: #### 8 [id number] ####[facility] [place] [address], [place] Glucose [Mass/Vol] 111 mg/dL High 70-100 [facility] Comment on above: Performed By: #### 8 [id number] #### [facility] [address] [place] [address], [place] Glucose [Mass/Vol] 109 mg/dL High 70-100 The [facility] Comment on above: Performed By: #### 8 [id number] #### [facility] [address] [place] [address], [place] Glucose [Mass/Vol] 94 mg/dL Normal 70-100 [facility] Comment on above: Performed By: #### 8 [id number] ####[facility] [place] [address], [place] PROTHROMBIN TIMEon INR Coag (PPP) [Relative time] 1.18 {INR} High 0.91-1.16 [facility] Comment on above: Order Comment: No: [...] 1995;[id number]. Performed By: #### 8 [id number] #### [address] PT Coag (PPP) [Time] 14.9 s High 12.3-14.8 [facility] Comment on above: Order Comment: No: D o not add to previous draw Result Comment: ALL RESULTS MUST BE INTERPRETED WITH RESPECT TO BLOOD DRAWING ARTIFACT OR DILUTION ERROR OF ANTICOAGULANT AT THE TIME OF SAMPLING. Performed By: #### 8 [id number] #### [address] UFH HEPARIN ASSAYon 04-04-20 22 UNFRACTIONATED HEPARIN 0.11 IU/mL Critically low 0.30-0.70 [facility] Comment on above: Result Comment: RESU LTS CHECKED AND CALLED. ACCURATELY READ BACK BY CHAZ LAWLER RN @ [phone] Rivaroxaban and Apixaban will interfere with the anti Xa assay used to monitor UFH and LMWH. Performed By: #### 8 [id number] #### [address] US GALLBLADDERon 04-04-2022 US GALLBLADDER [facility] Department of Radiology [address] [place] [phone] ======== Patient Name: MARÍA ELENA TAFOYA : 1940 Sex: F Age: Race: NA Pt. Location: [address] [place] [address] Patient Status: I Ordered Date: 04/03/2022 8:05:00 [...] calculi. Electronically signed: Brooke Verduzco. Transcribed by: [email or web address], User Resident: Electronically Signed by: BROOKE VERDUZCO @ 04/04/2022 07:46 AM Normal [facility] Comment on above: Order Comment: Stone s VENOUS BLOOD GASon BASE EXCESS 2 mmol/L Normal [facility] Comment on above: Performed By: #### 8 [id number] #### [facility] [address] [place] [address], [facility] HCO3 (Bld) [Moles/Vol] 27 mmol/L Normal [facility] Comment on above: Performed By: #### 8 [id number] #### [facility] [address] [place] [address], [facility] Oxygen (Bld) [Partial pressure] 72 mm[Hg] Critically high 35-45 [facility] Comment on above: Performed By: #### 8 [id number] #### [facility] [address] [place] [address], [facility] Oxygen saturation in Blood 93.8 % High 65.0-75.0 [facility] Comment on above: Performed By: #### 8 [id number] #### [facility] [address] [place] [address], [facility] PCO2 [address] [facility] Comment on above: Performed By: #### 8 [id number] #### [facility] [address] [place] [address], [facility] pH (Bld) 7.41 [pH] Normal 7.31-7.41 [facility] Comment on above: Performed By: #### 8 [id number] #### [facility] [address] [place] [address], [facility] APTTon 04-03-2022 aPTT Coag (Bld) [Time] 32.6 s Normal 25.0-35.0 [facility] Comment on above: Order Comment: Yes: [...] PURPOSE. Performed By: #### 8 [id number] #### [facility] [address] [place] [address], [place] ARTERIAL BLOOD GAS WITH ICAo n 04-03-2022 BASE EXCESS 2 mmol/L Normal -2-3 [facility] Comment on above: Performed By: #### 8 [id number] #### [facility] [address] [place] [address], [place] [employer] [place] Normal [facility] Comment on above: Performed By: #### 8 [id number] #### [facility] [address] [place] [address], [place] HCO3 (Bld) [Moles/Vol] 25 mmol/L Normal 21-28 [facility] Comment on above: Performed By: #### 8 [id number] #### [facility] [address] [place] [address], [place] IONIZED CALCIUM 1.24 mmol/L Normal 1.13-1.32 [facility] Comment on above: Performed By: #### 8 [id number] #### [facility] [address] [place] [address], [place] LPM 4.0 LPM Normal [facility] Comment on above: Performed By: #### 8 [id number] #### [facility] [address] [place] [address], [place] Oxygen (Bld) [Partial pressure] 76 mm[Hg] Low 83-108 [facility] Comment on above: Performed By: #### 8 [id number] #### [facility] [address] [place] [address], [place] Oxygen saturation in Blood 94.0 % Normal 94.0-97.0 [facility] Comment on above: Performed By: #### 8 [id number] #### [facility] [address] [place] [address], [place] PCO2 34 mmHg Low 35-45 [facility] Comment on above: Performed By: #### 8 [id number] #### [facility] [address] [place] [address], [facility] pH (Bld) 7.48 [pH] High 7.35-7.45 [facility] Comment on above: Performed By: #### 8 [id number] #### [facility] [address] [place] [address], [facility] BASIC METABOLIC PANELon 05-1 Calcium [Mass/Vol] 8.5 mg/dL Low 8.6-10.[address] [facility] Comment on above: Order Comment: No: D o not add to previous draw Performed By: #### 8 [id number] #### [facility] [address] [place] [address], [place] Chloride [Moles/Vol] 108 mmol/L High 98-107 [facility] Comment on above: Order Comment: No: D o not add to previous draw Performed By: #### 8 [id number] #### [facility] [address] [place] [address], [facility] CO2 [Moles/Vol] 25 mmol/L Normal 21-31 [facility] Comment on above: Order Comment: No: D o not add to previous draw Performed By: #### 8 [id number] #### [facility] [address] [place] [address], [facility] Creatinine [Mass/Vol] 0.96 mg/dL Normal 0.60-1.20 [facility] Comment on above: Order Comment: No: D o not add to previous draw Performed By: #### 8 [id number] #### [facility] [address] [place] [address], [facility] eGFR- non- 56 ml/min/1.73sq m Abnormal >60 [facility] Comment on above: Order Comment: No: D o not add to previous draw Result Comment: Calc ulation may not be valid for patients over 70 years Performed By: #### 8 [id number] #### [facility] [address] [place] [address], [place] GFR/1.73 sq M.predicted among blacks MDRD (S/P/Bld) [Vol rate/Area] mL/min/{1.73_m2} Normal >60 [facility] Comment on above: Order Comment: No: D o not add to previous draw Result Comment: Calc ulation may not be valid for patients over 70 years Performed By: #### 8 [id number] #### [facility] [address] [place] [address], [place] Glucose [Mass/Vol] 122 mg/dL High 70-100 [facility] Comment on above: Order Comment: No: D o not add to previous draw Performed By: #### 8 [id number] #### [facility] [address] [place] [address], [place] Potassium [Moles/Vol] 5.5 mmol/L High 3.5-5.1 [facility] Comment on above: Order Comment: No: D o not add to previous draw Performed By: #### 8 [id number] #### [facility] [address] [place] [address], [place] Sodium [Moles/Vol] 137 mmol/L Normal 136-145 [facility] Comment on above: Order Comment: No: D o not add to previous draw Performed By: #### 8 [id number] #### [facility] [address] [place] [address], [place] Urea nitrogen [Mass/Vol] 30 mg/dL High 7-25 [facility] Comment on above: Order Comment: No: D o not add to previous draw Performed By: #### 8 [id number] #### [facility] [address] [place] [address], [place] BLOOD STOOL GUAIACon 022 BLD STOOL GUAIAC Positive Abnormal NEGATIVE [facility] Comment on above: Order Comment: No: D o not add to previous draw Performed By: #### 2 2706 #### [facility] [address] [place] [address], [facility] CALCIUM IONIZED CBGLon 04-03 IONIZED CALCIUM 1.18 mmol/L Normal 1.12-1.30 [facility] Comment on above: Performed By: #### 8 [id number] #### [facility] [address] [facility] CBC COMPLETE BLOOD COUNTon 04-03-2022 Erythrocyte distribution width (RBC) [Ratio] 17.9 % High 11.5-15.0 [facility] Comment on above: Order Comment: No: D o not add to previous draw Performed By: #### 5 [id number] #### [facility] [address] Hematocrit (Bld) [Volume fraction] 34.4 % Low 36.0-45.0 [facility] Comment on above: Order Comment: No: D o not add to previous draw Performed By: #### 5 [id number] #### [facility] [address] [facility] [place] [address], [facility] Hemoglobin (Bld) [Mass/Vol] 10.6 g/dL Low 12.0-15.0 [facility] Comment on above: Order Comment: No: D o not add to previous draw Performed By: #### 5 [id number] #### [facility] [address] [facility] [place] [address], [facility] MCH (RBC) [Entitic mass] 30.3 pg Normal 27.0-33.0 [facility] Comment on above: Order Comment: No: D o not add to previous draw Performed By: #### 5 [id number] #### [facility] [address] [place] [address], [facility] MCHC (RBC) [Mass/Vol] 30.8 g/dL Low 32.0-35.0 [facility] Comment on above: Order Comment: No: D o not add to previous draw Performed By: #### 5 [id number] #### [facility] [address] [place] [address], [facility] MCV (RBC) [Entitic vol] 98.3 fL High 82.0-98.0 [facility] Comment on above: Order Comment: No: D o not add to previous draw Performed By: #### 5 [id number] #### [facility] [address] [place] [address], [facility] Nucleated RBC/100 WBC (Bld) [Ratio] 0 % Normal 0-0 [facility] Comment on above: Order Comment: No: D o not add to previous draw Performed By: #### 5 [id number] #### [facility] [address] [place] [address], [facility] PLAT CNT 396 10*3/uL Normal 150-400 [facility] Comment on above: Order Comment: No: D o not add to previous draw Performed By: #### 5 [id number] #### [facility] [address] [facility] [place] [address], [facility] RBC (Bld) [#/Vol] 3.50 10*6/uL Low 3.80-5.00 [facility] Comment on above: Order Comment: No: D o not add to previous draw Performed By: #### 5 [id number] #### [facility] [address] [facility] [place] [address], [facility] WBC (Bld) [#/Vol] 34.46 10*3/uL High 4.00-10.60 [facility] Comment on above: Order Comment: No: D o not add to previous draw Performed By: #### 5 [id number] #### [facility] [address] [place] [address], [facility] CT BRAIN WO CONTRASTon 04-03 CT BRAIN WO CONTRAST [facility] Department of Radiology [address] [place] [phone] ======== Patient Name: MARÍA ELENA TAFOYA : 1940 Sex: F Age: Race: NA Pt. Location: [id number] Patient Status: I Ordered Date: 04/03/2022 8:30:00 [...] MR. Electronically signed: Darrel Chang. Transcribed by: [email or web address], User Resident: Electronically Signed by: DARREL CHANG @ 04/03/2022 09:21 PM Normal [facility] Comment on above: Order Comment: Bleed , altereed mental status ERCPon 04-03-2022 ERCP [facility] Department of Radiology [address] [place] [phone] ======== Patient Name: MARÍA ELENA TAFOYA : 1940 Sex: F Age: Race: NA Pt. Location: [id number] Patient Status: I Ordered Date: 04/03/2022 8:50:00 [...] details. Electronically signed: Brooke Verduzco. Transcribed by: [email or web address], User Resident: Electronically Signed by: BROOKE VERDUZCO @ 04/03/2022 12:52 PM Normal [facility] Comment on above: Order Comment: Check Stent Position HEMATOCRITon 04-03-2022 Hematocrit (Bld) [Volume fraction] 27.5 % Low 36.0-45.0 [facility] Comment on above: Order Comment: No: D o not add to previous draw Performed By: #### 8 [id number] #### [facility] [address] [place] [address], [facility] Hematocrit (Bld) [Volume fraction] 31.1 % Low 36.0-45.0 [facility] Comment on above: Order Comment: No: D o not add to previous draw Performed By: #### 8 [id number] #### [facility] [address] [place] [id number], [facility] Hematocrit (Bld) [Volume fraction] 32.2 % Low 36.0-45.0 [facility] Comment on above: Order Comment: No: D o not add to previous draw Performed By: #### 8 [id number] #### [facility] [address] [place] [address], [place] HEMOGLOBINon 04-03-2022 Hemoglobin (Bld) [Mass/Vol] 8.8 g/dL Low 12.0-15.0 [facility] Comment on above: Order Comment: No: D o not add to previous draw Performed By: #### 8 [id number] #### [facility] [address] [place] [address], [facility] Hemoglobin (Bld) [Mass/Vol] 9.8 g/dL Low 12.0-15.0 [facility] Comment on above: Order Comment: No: D o not add to previous draw Performed By: #### 8 [id number] #### [facility] [address] [place] [address], [facility] Hemoglobin (Bld) [Mass/Vol] 9.9 g/dL Low 12.0-15.0 [facility] Comment on above: Order Comment: No: D o not add to previous draw Performed By: #### 8 [id number] #### [facility] [address] [place] [address], [facility] LIPASE BLOODon 04-03-2022 LIPASE 149 Units/L High 11-82 [facility] Comment on above: Order Comment: No: D o not add to previous draw Performed By: #### 8 [id number] #### [facility] [address] [place] [address], [place] LIVER BATTERYon 04-03-2022 Albumin [Mass/Vol] 2.8 g/dL Low 3.5-5.[address] [facility] Comment on above: Order Comment: No: D o not add to previous draw Performed By: #### 8 [id number] #### [facility] [address] [place] [address], [facility] ALKALINE PHOSPH 137 IU/L High 34-104 The [facility] Comment on above: Order Comment: No: D o not add to previous draw Performed By: #### 8 [id number] #### [facility] [address] [place] [address], [place] ALT [Catalytic activity/Vol] 18 U/L Normal 7-52 [facility] Comment on above: Order Comment: No: D o not add to previous draw Performed By: #### 8 [id number] #### [facility] [address] [place] [address], [place] AST [Catalytic activity/Vol] 8 U/L Low 13-39 [facility] Comment on above: Order Comment: No: D o not add to previous draw Performed By: #### 8 [id number] #### [facility] [address] [place] [address], [place] Bilirubin [Mass/Vol] 1.5 mg/dL High 0.3-1.0 [facility] Comment on above: Order Comment: No: D o not add to previous draw Performed By: #### 8 [id number] #### [facility] [address] [place] [address], [place] Bilirubin.direct [Mass/Vol] 0.6 mg/dL High 0.0-0.2 [facility] Comment on above: Order Comment: No: D o not add to previous draw Performed By: #### 8 [id number] #### [facility] [address] [place] [address], [place] Protein [Mass/Vol] 5.8 g/dL Low 6.0-8.3 [facility] Comment on above: Order Comment: No: D o not add to previous draw Performed By: #### 8 [id number] #### [facility] [address] [place] [address], [facility] MAGNESIUM BLOODon 04-03-2022 Magnesium [Mass/Vol] 2.0 mg/dL Normal 1.9-2.7 [facility] Comment on above: Order Comment: No: D o not add to previous draw Performed By: #### 8 [id number] #### [facility] [address] [place] [address], [place] PHOSPHORUS BLOODon Phosphate [Mass/Vol] 4.2 mg/dL Normal 2.5-5.0 [facility] Comment on above: Order Comment: No: D o not add to previous draw Performed By: #### 8 [id number] #### [facility] [address] [place] [address], [place] POC GLUCOSE LABon 04-03-2022 Glucose [Mass/Vol] 121 mg/dL High 70-100 [facility] Comment on above: Performed By: #### 8 [id number] #### [facility] [address] [facility] [place] [address], [facility] Glucose [Mass/Vol] 147 mg/dL High 70-[address] [facility] Comment on above: Performed By: #### [id number] #### [facility] [address] [place] [address], [facility] Glucose [Mass/Vol] 133 mg/dL High 70-[address] [facility] Comment on above: Performed By: #### 3 [id number] #### [facility] [address] PROTHROMBIN TIMEon 2 INR Coag (PPP) [Relative time] 1.23 {INR} High 0.91-1.16 [facility] Comment on above: Order Comment: Yes: [...] 1995;[id number]. Performed By: #### 8 [id number] #### [facility] [address] [place] [address], [facility] PT Coag (PPP) [Time] 15.5 s High 12.3-14.8 [facility] Comment on above: Order Comment: Yes: Add to Previous draw if ablePt is in OR Result Comment: ALL RESULTS MUST BE INTERPRETED WITH RESPECT TO BLOOD DRAWING ARTIFACT OR DILUTION ERROR OF ANTICOAGULANT AT THE TIME OF SAMPLING. Performed By: #### 8 [id number] #### [facility] [address] [place] [address], [facility] RBC'S 1 UNITon 04-03-2022 CROSSMATCH INTERP 1 COMP Normal [facility] Comment on above: Performed By: #### [id number] #### [facility] [address] [place] [address], [facility] PRODUCT CODE 1 E0336 Normal [facility] Comment on above: Performed By: #### [id number] #### [facility] [address] [facility] [place] [address], [facility] PRODUCT STATUS 1 RE Normal [facility] Comment on above: Result Comment: Resu lt changed by IF on 04/07/2022 06:43. The previous value was XM. Performed By: #### [id number] #### [facility] [address] [facility] [place] [address], [facility] UNIT ABO 1 A Normal [facility] Comment on above: Performed By: #### 8 [id number] #### [facility] [address] [place] [address], [facility] UNIT ID 1 [id number] Normal The [facility] Comment on above: Performed By: #### 8 [id number] #### [facility] [address] [place] [address], [facility] UNIT RH 1 Negative Normal [facility] Comment on above: Performed By: #### 8 [id number] #### [facility] [address] [place] [address], [facility] RBC'S 2 UNITSon 04-03-2022 CROSSMATCH INTERP 1 COMP Normal [facility] Comment on above: Performed By: #### [id number] #### [facility] [address] [place] [address], [facility] CROSSMATCH INTERP 2 COMP Normal [facility] Comment on above: Performed By: #### 8 [id number] #### [facility] [address] [place] [address], [facility] PRODUCT CODE 1 E0686 Normal [facility] Comment on above: Performed By: #### 8 [id number] #### [facility] [address] [place] [address], [facility] PRODUCT CODE 2 E0336 Normal [facility] Comment on above: Performed By: #### 8 [id number] #### [facility] [address] [place], [place] [id number] [place] [address] PRODUCT STATUS 1 PT Normal [facility] Comment on above: Result Comment: Resu lt changed by IF on 04/03/2022 10:21. The previous value was XM. Result changed by IF on 04/04/2022 00:30. The previous value was IS. Performed By: #### 8 [id number] #### [facility] [address] [place] [address], [facility] PRODUCT STATUS 2 PT Normal [facility] Comment on above: Result Comment: Resu lt changed by IF on 04/03/2022 10:21. The previous value was XM. Result changed by IF on 04/03/2022 11:27. The previous value was IS. Result changed by IF on 04/03/2022 12:23. The previous value was XM. Result changed by IF on 04/04/2022 00:30. The previous value was IS. Performed By: #### 8 [id number] #### [facility] [address] UNIT ABO [address] [facility] Comment on above: Performed By: #### 8 [id number] #### [facility] [address] [place] [address], [facility] UNIT ABO 2 A Normal [facility] Comment on above: Performed By: #### 8 [id number] #### [facility] [address] [place] [address], [facility] UNIT ID 1 [id number] Normal The [facility] Comment on above: Performed By: #### 8 [id number] #### [facility] [address] UNIT ID 2 [id number] Normal [facility] Comment on above: Performed By: #### 8 [id number] #### [facility] [address] UNIT RH 1 Negative Normal [facility] Comment on above: Performed By: #### 8 [id number] #### [facility] [address] [place] [address], [facility] UNIT RH 2 Negative Normal [facility] Comment on above: Performed By: #### 8 [id number] #### [facility] [address] TYPE AND SCREENon 04-03-2022 ABO INTERPRETATION AB Normal The [facility] Comment on above: Performed By: #### 8 [id number] #### [facility] [address] [place] [address], [facility] RH INTERPRETATION Negative Normal [facility] Comment on above: Performed By: #### 8 [id number] #### [facility] [address] [place] [address], [facility] UFH HEPARIN ASSAYon 04-03-20 22 UNFRACTIONATED HEPARIN 0.28 IU/mL Low 0.30-0.70 [facility] Comment on above: Result Comment: Rkisty roxaban and Apixaban will interfere with the anti Xa assay used to monitor UFH and LMWH. Performed By: #### 8 [id number] #### [facility] [address] [place] [address], [facility] VENOUS BLOOD GAS W/COOXon BASE EXCESS -3 mmol/L Normal [facility] Comment on above: Order Comment: RESUL TS CHECKED AND CALLED. ACCURATELY READ BACK BY AYANNA PHIPPS Performed By: #### 8 [id number] #### [facility] [address] [place] [address], [facility] COHB 2 % Normal [facility] Comment on above: Order Comment: RESUL TS CHECKED AND CALLED. ACCURATELY READ BACK BY AYANNA PHIPPS Performed By: #### 8 [id number] #### [facility] [address] [place] [address], [facility] HCO3 (Bld) [Moles/Vol] 25 mmol/L Normal [facility] Comment on above: Order Comment: RESUL TS CHECKED AND CALLED. ACCURATELY READ BACK BY AYANNA PHIPPS Performed By: #### 8 [id number] #### [facility] [address] [place] [address], [facility] METHB 0.3 % Normal [facility] Comment on above: Order Comment: RESUL TS CHECKED AND CALLED. ACCURATELY READ BACK BY AYANNA PHIPPS Performed By: #### 8 [id number] #### [facility] [address] [place] [address], [facility] Oxygen (Bld) [Partial pressure] 31 mm[Hg] Low 35-45 [facility] Comment on above: Order Comment: RESUL TS CHECKED AND CALLED. ACCURATELY READ BACK BY AYANNA PHIPPS Performed By: #### 8 [id number] #### [facility] [address] [place] [address], [facility] Oxygen saturation in Blood 38.0 % Low 65.0-75.0 [facility] Comment on above: Order Comment: RESUL TS CHECKED AND CALLED. ACCURATELY READ BACK BY AYANNA PHIPPS Performed By: #### 8 [id number] #### [facility] [address] [place] [address], [facility] PCO2 53 mmHg Normal [facility] Comment on above: Order Comment: RESUL TS CHECKED AND CALLED. ACCURATELY READ BACK BY AYANNA RN Performed By: #### 8 [id number] #### [facility] [address] [facility] pH (Bld) 7.28 [pH] Low 7.31-7.41 [facility] Comment on above: Order Comment: RESUL TS CHECKED AND CALLED. ACCURATELY READ BACK BY AYANNA PHIPPS Performed By: #### 8 [id number] #### [facility] [address] [facility] THB 9.2 g/dL Normal [facility] Comment on above: Order Comment: RESUL TS CHECKED AND CALLED. ACCURATELY READ BACK BY AYANNA PHIPPS Performed By: #### 8 [id number] #### [facility] [address] [facility] BASIC METABOLIC PANELon 05-1 Calcium [Mass/Vol] 8.5 mg/dL Low 8.6-10.3 [facility] Comment on above: Order Comment: The A ptima SARS-CoV-2 assay is a nucleic acid amplification test intended for the qualitative detection of RNA from SARS-CoV-2 isolated and purified from nasopharyngeal (MEDICATION SPECIALIST),oropharyngeal (OP), nasal swab, sputum, and bronchoalveolar lavage (BAL) specimens from patients with signs and symptoms of infection who are suspected of COVID-19. Results are for the identification of SARS-CoV-2 RNA. The SARS-CoV-2 RNA is generally detectable during the acute phase of infection. The Aptima SARS-CoV-2 Assay on the [employer] system is intended for use by laboratory personnel specifically instructed and trained in the operation of the [employer] system. The Aptima SARS-CoV-2 assay is [...] information. Performed By: #### 3 [id number] #### [facility] [address] [place] [address], [facility] Chloride [Moles/Vol] 104 mmol/L Normal 98-107 [facility] Comment on above: Order Comment: The A ptima SARS-CoV-2 assay is a nucleic acid amplification test intended for the qualitative detection of RNA from SARS-CoV-2 isolated and purified from nasopharyngeal (MEDICATION SPECIALIST),oropharyngeal (OP), nasal swab, sputum, and bronchoalveolar lavage (BAL) specimens from patients with signs and symptoms of infection who are suspected of COVID-19. Results are for the identification of SARS-CoV-2 RNA. The SARS-CoV-2 RNA is generally detectable during the acute phase of infection. The Aptima SARS-CoV-2 Assay on the [employer] system is intended for use by laboratory personnel specifically instructed and trained in the operation of the [employer] system. The Aptima SARS-CoV-2 assay is [...] and epidemiological information. Performed By: #### 3 [id number] #### [facility] [address] [facility] [place] [address], [facility] CO2 [Moles/Vol] 23 mmol/L Normal 21-31 [facility] Comment on above: Order Comment: The A ptima SARS-CoV-2 assay is a nucleic acid amplification test intended for the qualitative detection of RNA from SARS-CoV-2 isolated and purified from nasopharyngeal (MEDICATION SPECIALIST),oropharyngeal (OP), nasal swab, sputum, and bronchoalveolar lavage (BAL) specimens from patients with signs and symptoms of infection who are suspected of COVID-19. Results are for the identification of SARS-CoV-2 RNA. The SARS-CoV-2 RNA is generally detectable during the acute phase of infection. The Aptima SARS-CoV-2 Assay on the [employer] system is intended for use by laboratory personnel specifically instructed and trained in the operation of the [employer] system. The Aptima SARS-CoV-2 assay is [...] information. Performed By: #### 3 [id number] #### [address] Creatinine [Mass/Vol] 1.00 mg/dL Normal 0.60-1.20 [facility] Comment on above: Order Comment: The A ptima SARS-CoV-2 assay is a nucleic acid amplification test intended for the qualitative detection of RNA from SARS-CoV-2 isolated and purified from nasopharyngeal (MEDICATION SPECIALIST),oropharyngeal (OP), nasal swab, sputum, and bronchoalveolar lavage (BAL) specimens from patients with signs and symptoms of infection who are suspected of COVID-19. Results are for the identification of SARS-CoV-2 RNA. The SARS-CoV-2 RNA is generally detectable during the acute phase of infection. The Aptima SARS-CoV-2 Assay on the [employer] system is intended for use by laboratory personnel specifically instructed and trained in the operation of the [employer] system. The Aptima SARS-CoV-2 assay is [...] information. Performed By: #### 3 [id number] #### [facility] [address] [place] [address], [facility] eGFR- non- 53 ml/min/1.73sq m Abnormal >60 [facility] Comment on above: Order Comment: The A ptima SARS-CoV-2 assay is a nucleic acid amplification test intended for the qualitative detection of RNA from SARS-CoV-2 isolated and purified from nasopharyngeal (MEDICATION SPECIALIST),oropharyngeal (OP), nasal swab, sputum, and bronchoalveolar lavage (BAL) specimens from patients with signs and symptoms of infection who are suspected of COVID-19. Results are for the identification of SARS-CoV-2 RNA. The SARS-CoV-2 RNA is generally detectable during the acute phase of infection. The Aptima SARS-CoV-2 Assay on the [employer] system is intended for use by laboratory personnel specifically instructed and trained in the operation of the [employer] system. The Aptima SARS-CoV-2 assay is [...] years Performed By: #### 3 [id number] #### [facility] [address] [place] [address], [facility] GFR/1.73 sq M.predicted among blacks MDRD (S/P/Bld) [Vol rate/Area] mL/min/{1.73_m2} Normal >60 [facility] Comment on above: Order Comment: The A ptima SARS-CoV-2 assay is a nucleic acid amplification test intended for the qualitative detection of RNA from SARS-CoV-2 isolated and purified from nasopharyngeal (MEDICATION SPECIALIST),oropharyngeal (OP), nasal swab, sputum, and bronchoalveolar lavage (BAL) specimens from patients with signs and symptoms of infection who are suspected of COVID-19. Results are for the identification of SARS-CoV-2 RNA. The SARS-CoV-2 RNA is generally detectable during the acute phase of infection. The Aptima SARS-CoV-2 Assay on the [employer] system is intended for use by laboratory personnel specifically instructed and trained in the operation of the [employer] system. The Aptima SARS-CoV-2 assay is [...] years Performed By: #### 3 [id number] #### [facility] [address] Glucose [Mass/Vol] 87 mg/dL Normal 70-100 [facility] Comment on above: Order Comment: The A ptima SARS-CoV-2 assay is a nucleic acid amplification test intended for the qualitative detection of RNA from SARS-CoV-2 isolated and purified from nasopharyngeal (MEDICATION SPECIALIST),oropharyngeal (OP), nasal swab, sputum, and bronchoalveolar lavage (BAL) specimens from patients with signs and symptoms of infection who are suspected of COVID-19. Results are for the identification of SARS-CoV-2 RNA. The SARS-CoV-2 RNA is generally detectable during the acute phase of infection. The Aptima SARS-CoV-2 Assay on the [employer] system is intended for use by laboratory personnel specifically instructed and trained in the operation of the [employer] system. The Aptima SARS-CoV-2 assay is [...] information. Performed By: #### 3 [id number] #### [facility] [address] [place] [address], [facility] Potassium [Moles/Vol] 4.1 mmol/L Normal 3.5-5.1 [facility] Comment on above: Order Comment: The A ptima SARS-CoV-2 assay is a nucleic acid amplification test intended for the qualitative detection of RNA from SARS-CoV-2 isolated and purified from nasopharyngeal (MEDICATION SPECIALIST),oropharyngeal (OP), nasal swab, sputum, and bronchoalveolar lavage (BAL) specimens from patients with signs and symptoms of infection who are suspected of COVID-19. Results are for the identification of SARS-CoV-2 RNA. The SARS-CoV-2 RNA is generally detectable during the acute phase of infection. The Aptima SARS-CoV-2 Assay on the [employer] system is intended for use by laboratory personnel specifically instructed and trained in the operation of the [employer] system. The Aptima SARS-CoV-2 assay is [...] information. Performed By: #### 3 [id number] #### [facility] [address] [place] [address], [facility] Sodium [Moles/Vol] 135 mmol/L Low 136-[address] [facility] Comment on above: Order Comment: The A ptima SARS-CoV-2 assay is a nucleic acid amplification test intended for the qualitative detection of RNA from SARS-CoV-2 isolated and purified from nasopharyngeal (MEDICATION SPECIALIST),oropharyngeal (OP), nasal swab, sputum, and bronchoalveolar lavage (BAL) specimens from patients with signs and symptoms of infection who are suspected of COVID-19. Results are for the identification of SARS-CoV-2 RNA. The SARS-CoV-2 RNA is generally detectable during the acute phase of infection. The Aptima SARS-CoV-2 Assay on the [employer] system is intended for use by laboratory personnel specifically instructed and trained in the operation of the [employer] system. The Aptima SARS-CoV-2 assay is [...] information. Performed By: #### 3 [id number] #### [address] Urea nitrogen [Mass/Vol] 17 mg/dL Normal 7-25 [facility] Comment on above: Order Comment: The A ptima SARS-CoV-2 assay is a nucleic acid amplification test intended for the qualitative detection of RNA from SARS-CoV-2 isolated and purified from nasopharyngeal (MEDICATION SPECIALIST),oropharyngeal (OP), nasal swab, sputum, and bronchoalveolar lavage (BAL) specimens from patients with signs and symptoms of infection who are suspected of COVID-19. Results are for the identification of SARS-CoV-2 RNA. The SARS-CoV-2 RNA is generally detectable during the acute phase of infection. The Aptima SARS-CoV-2 Assay on the [employer] system is intended for use by laboratory personnel specifically instructed and trained in the operation of the [employer] system. The Aptima SARS-CoV-2 assay is [...] information. Performed By: #### 3 [id number] #### [facility] [address] CALCIUM IONIZED CBGLon 04-02 IONIZED CALCIUM 1.15 mmol/L Normal 1.12-1.30 [facility] Comment on above: Performed By: #### 8 [id number] #### [facility] [address] [facility] [place] [address], [facility] CBC W/DIFFon 04-02-2022 ABS IMM GRANS 0.5 10*3/uL High 0.0-0.2 [facility] Comment on above: Order Comment: No: D o not add to previous draw Performed By: #### 8 [id number] #### [facility] [address] [facility] [place] [address], [facility] ABS NEUTROPHILS 27.8 10*3/uL High 1.6-7.6 [facility] Comment on above: Order Comment: No: D o not add to previous draw Performed By: #### 8 [id number] #### [facility] [address] [place] [address], [facility] Basophils (Bld) [#/Vol] 0.2 10*3/uL Normal 0.0-0.2 [facility] Comment on above: Order Comment: No: D o not add to previous draw Performed By: #### 8 [id number] #### [facility] [address] [place] [address], [facility] Basophils/100 WBC (Bld) 0.7 % Normal 0.0-1.0 [facility] Comment on above: Order Comment: No: D o not add to previous draw Performed By: #### 8 [id number] #### [facility] [address] [place] [address], [facility] Eosinophils (Bld) [#/Vol] 0.0 10*3/uL Normal 0.0-0.5 [facility] Comment on above: Order Comment: No: D o not add to previous draw Performed By: #### 8 [id number] #### [facility] [address] [place] [address], [facility] Eosinophils/100 WBC (Bld) 0.1 % Normal 0.0-6.0 [facility] Comment on above: Order Comment: No: D o not add to previous draw Performed By: #### 8 [id number] #### [facility] [address] Erythrocyte distribution width (RBC) [Ratio] 17.5 % High 11.5-15.0 [facility] Comment on above: Order Comment: No: D o not add to previous draw Performed By: #### 8 [id number] #### [facility] [address] Hematocrit (Bld) [Volume fraction] 39.1 % Normal 36.0-45.0 [facility] Comment on above: Order Comment: No: D o not add to previous draw Performed By: #### 8 [id number] #### [facility] [address] [place] [address], [facility] Hemoglobin (Bld) [Mass/Vol] 12.1 g/dL Normal 12.0-15.0 [facility] Comment on above: Order Comment: No: D o not add to previous draw Performed By: #### 8 [id number] #### [facility] [address] [place] [address], [facility] IMMATURE GRANS 1.8 % High 0.0-1.0 [facility] Comment on above: Order Comment: No: D o not add to previous draw Performed By: #### 8 [id number] #### [facility] [address] [place] [address] [place] Lymphocytes (Bld) [#/Vol] 1.1 10*3/uL Low 1.2-4.0 [facility] Comment on above: Order Comment: No: D o not add to previous draw Performed By: #### 8 [id number] #### [facility] [address] [place] [address], [facility] Lymphocytes/100 WBC (Bld) 3.5 % Low 20.0-45.0 [facility] Comment on above: Order Comment: No: D o not add to previous draw Performed By: #### 8 [id number] #### [facility] [address] [place] [address], [facility] MCH (RBC) [Entitic mass] 30.1 pg Normal 27.0-33.0 [facility] Comment on above: Order Comment: No: D o not add to previous draw Performed By: #### 8 [id number] #### [facility] [address] MCHC (RBC) [Mass/Vol] 30.9 g/dL Low 32.0-35.0 [facility] Comment on above: Order Comment: No: D o not add to previous draw Performed By: #### 8 [id number] #### [facility] [address] [place] [address], [facility] MCV (RBC) [Entitic vol] 97.3 fL Normal 82.0-98.0 [facility] Comment on above: Order Comment: No: D o not add to previous draw Performed By: #### 8 [id number] #### [facility] [address] [place] [address], [facility] Monocytes (Bld) [#/Vol] 0.6 10*3/uL Normal 0.1-1.0 [facility] Comment on above: Order Comment: No: D o not add to previous draw Performed By: #### 8 [id number] #### [facility] [address] [place] [address], [facility] MONOS 1.8 % Low 5.0-12.0 [facility] Comment on above: Order Comment: No: D o not add to previous draw Performed By: #### 8 [id number] #### [facility] [address] [place] [address], [place] Neutrophils/100 WBC (Bld) 92.1 % High 40.0-72.0 [facility] Comment on above: Order Comment: No: D o not add to previous draw Performed By: #### 8 [id number] #### [facility] [address] [place] [address], [facility] Nucleated RBC/100 WBC (Bld) [Ratio] 0 % Normal 0-0 [facility] Comment on above: Order Comment: No: D o not add to previous draw Performed By: #### 8 [id number] #### [facility] [address] [place] [address], [place] PLAT [employer] 370 10*3/uL Normal 150-400 [facility] Comment on above: Order Comment: No: D o not add to previous draw Performed By: #### 8 [id number] #### [facility] [address] [place] [id number], [facility] RBC (Bld) [#/Vol] 4.02 10*6/uL Normal 3.80-5.00 [facility] Comment on above: Order Comment: No: D o not add to previous draw Performed By: #### 8 [id number] #### [facility] [address] [place] [address], [place] WBC (Bld) [#/Vol] 30.18 10*3/uL High 4.00-10.60 [facility] Comment on above: Order Comment: No: D o not add to previous draw Performed By: #### 8 [id number] #### [facility] [address] [place] [address], [facility] ERCPon 04-02-2022 [facility] Department of Radiology [address] [place] [address] ======== Patient Name: MARÍA ELENA TAFOYA : 1940 Sex: F Age: Race: NA Pt. Location: [address] [place] [address] Patient Status: I Ordered Date: 04/02/2022 3:40:00 [...] details. Electronically signed: Brooke Verduzco. Transcribed by: [email or web address], User Resident: Electronically Signed by: BROOKE VERDUZCO @ 04/03/2022 09:48 AM Normal [facility] Comment on above: Order Comment: Check Stent Position Endoscopy Reporton 2 Endoscopy Report MR#: [id number] [facility] Pt. Name: María Elena Tafoya Surgery Date: 04/02/2022 Room #: 5AB [id number] Date of : 1940 PROCEDURE NOTE ATTENDING: Elizabeth Olivo M.D. PROJECT COORDINATOR: Felipe Gallo MD. PROCEDURE: ERCP with biliary [...] Gallo MD Date Trans: 04/02/2022 07:10 P/mmo [id number] cc: Bennie Albright M.D. [address] [facility] [id number] Normal [facility] LIVER BATTERYon 04-02-2022 Albumin [Mass/Vol] 3.0 g/dL Low 3.5-5.7 The [facility] Comment on above: Order Comment: The A ptima SARS-CoV-2 assay is a nucleic acid amplification test intended for the qualitative detection of RNA from SARS-CoV-2 isolated and purified from nasopharyngeal (MEDICATION SPECIALIST),oropharyngeal (OP), nasal swab, sputum, and bronchoalveolar lavage (BAL) specimens from patients with signs and symptoms of infection who are suspected of COVID-19. Results are for the identification of SARS-CoV-2 RNA. The SARS-CoV-2 RNA is generally detectable during the acute phase of infection. The Aptima SARS-CoV-2 Assay on the Navarre [employer] Nav[employer]re Fusion system is intended for use by laboratory personnel specifically instructed and trained in the operation of the Navarre [employer] Fusion system. The Aptima SARS-CoV-2 assay is [...] information. Performed By: #### 3 [id number] #### [facility] [address] ALKALINE PHOSPH 174 IU/L High 34-104 [facility] Comment on above: Order Comment: The A ptima SARS-CoV-2 assay is a nucleic acid amplification test intended for the qualitative detection of RNA from SARS-CoV-2 isolated and purified from nasopharyngeal (MEDICATION SPECIALIST),oropharyngeal (OP), nasal swab, sputum, and bronchoalveolar lavage (BAL) specimens from patients with signs and symptoms of infection who are suspected of COVID-19. Results are for the identification of SARS-CoV-2 RNA. The SARS-CoV-2 RNA is generally detectable during the acute phase of infection. The Aptima SARS-CoV-2 Assay on the Entigo and Entigo Fusion system is intended for use by laboratory personnel specifically instructed and trained in the operation of the Navarre [employer] Fusion system. The Aptima SARS-CoV-2 assay is [...] information. Performed By: #### 3 [id number] #### [facility] [address] ALT [Catalytic activity/Vol] 21 U/L Normal 7-52 [facility] Comment on above: Order Comment: The A ptima SARS-CoV-2 assay is a nucleic acid amplification test intended for the qualitative detection of RNA from SARS-CoV-2 isolated and purified from nasopharyngeal (MEDICATION SPECIALIST),oropharyngeal (OP), nasal swab, sputum, and bronchoalveolar lavage (BAL) specimens from patients with signs and symptoms of infection who are suspected of COVID-19. Results are for the identification of SARS-CoV-2 RNA. The SARS-CoV-2 RNA is generally detectable during the acute phase of infection. The Aptima SARS-CoV-2 Assay on the [employer] Fusion system is intended for use by laboratory personnel specifically instructed and trained in the operation of the Navarre and Navarre Fusion system. The Aptima SARS-CoV-2 assay is [...] information. Performed By: #### 3 [id number] #### [facility] [address] [facility]. [address] AST [Catalytic activity/Vol] 9 U/L Low 13-39 [facility] Comment on above: Order Comment: The A ptima SARS-CoV-2 assay is a nucleic acid amplification test intended for the qualitative detection of RNA from SARS-CoV-2 isolated and purified from nasopharyngeal (MEDICATION SPECIALIST),oropharyngeal (OP), nasal swab, sputum, and bronchoalveolar lavage (BAL) specimens from patients with signs and symptoms of infection who are suspected of COVID-19. Results are for the identification of SARS-CoV-2 RNA. The SARS-CoV-2 RNA is generally detectable during the acute phase of infection. The Aptima SARS-CoV-2 Assay on the [employer]re Fusion system is intended for use by laboratory personnel specifically instructed and trained in the operation of the [employer]arre and [employer]arre Fusion system. The Aptima SARS-CoV-2 assay is [...] information. Performed By: #### 3 1792 #### [facility] [address] Bilirubin [Mass/Vol] 1.9 mg/dL High 0.3-1.0 [facility] Comment on above: Order Comment: The A ptima SARS-CoV-2 assay is a nucleic acid amplification test intended for the qualitative detection of RNA from SARS-CoV-2 isolated and purified from nasopharyngeal (MEDICATION SPECIALIST),oropharyngeal (OP), nasal swab, sputum, and bronchoalveolar lavage (BAL) specimens from patients with signs and symptoms of infection who are suspected of COVID-19. Results are for the identification of SARS-CoV-2 RNA. The SARS-CoV-2 RNA is generally detectable during the acute phase of infection. The Aptima SARS-CoV-2 Assay on the Get[employer] system is intended for use by laboratory personnel specifically instructed and trained in the operation of the Entigo and Entigo Fusion system. The Aptima SARS-CoV-2 assay is [...] information. Performed By: #### 3 1792 #### [address] Bilirubin.direct [Mass/Vol] 0.8 mg/dL High 0.0-0.2 [facility] Comment on above: Order Comment: The A ptima SARS-CoV-2 assay is a nucleic acid amplification test intended for the qualitative detection of RNA from SARS-CoV-2 isolated and purified from nasopharyngeal (MEDICATION SPECIALIST),oropharyngeal (OP), nasal swab, sputum, and bronchoalveolar lavage (BAL) specimens from patients with signs and symptoms of infection who are suspected of COVID-19. Results are for the identification of SARS-CoV-2 RNA. The SARS-CoV-2 RNA is generally detectable during the acute phase of infection. The Aptima SARS-CoV-2 Assay on the [employer] Fusion system is intended for use by laboratory personnel specifically instructed and trained in the operation of the [employer]re [employer]re Fusion system. The Aptima SARS-CoV-2 assay is [...] information. Performed By: #### 3 [id number] #### [facility] [address] [place] [address], [facility] Protein [Mass/Vol] 6.1 g/dL Normal 6.0-8.3 [facility] Comment on above: Order Comment: The A ptima SARS-CoV-2 assay is a nucleic acid amplification test intended for the qualitative detection of RNA from SARS-CoV-2 isolated and purified from nasopharyngeal (MEDICATION SPECIALIST),oropharyngeal (OP), nasal swab, sputum, and bronchoalveolar lavage (BAL) specimens from patients with signs and symptoms of infection who are suspected of COVID-19. Results are for the identification of SARS-CoV-2 RNA. The SARS-CoV-2 RNA is generally detectable during the acute phase of infection. The Aptima SARS-CoV-2 Assay on the [employer]re Fusion system is intended for use by laboratory personnel specifically instructed and trained in the operation of the [employer] and [employer]arre Fusion system. The Aptima SARS-CoV-2 assay is [...] information. Performed By: #### 3 [id number] #### [facility] [address] [place] [address], [facility] MAGNESIUM BLOODon 04-02-2022 Magnesium [Mass/Vol] 1.3 mg/dL Low 1.9-2.7 [facility] Comment on above: Order Comment: The A ptima SARS-CoV-2 assay is a nucleic acid amplification test intended for the qualitative detection of RNA from SARS-CoV-2 isolated and purified from nasopharyngeal (MEDICATION SPECIALIST),oropharyngeal (OP), nasal swab, sputum, and bronchoalveolar lavage (BAL) specimens from patients with signs and symptoms of infection who are suspected of COVID-19. Results are for the identification of SARS-CoV-2 RNA. The SARS-CoV-2 RNA is generally detectable during the acute phase of infection. The Aptima SARS-CoV-2 Assay on the Get[employer] system is intended for use by laboratory personnel specifically instructed and trained in the operation of the Entigo [employer] Fusion system. The Aptima SARS-CoV-2 assay is [...] information. Performed By: #### 3 [id number] #### [facility] [address] [place] [address], [facility] PHOSPHORUS BLOODon Phosphate [Mass/Vol] 2.9 mg/dL Normal 2.5-5.0 [facility] Comment on above: Order Comment: The A ptima SARS-CoV-2 assay is a nucleic acid amplification test intended for the qualitative detection of RNA from SARS-CoV-2 isolated and purified from nasopharyngeal (MEDICATION SPECIALIST),oropharyngeal (OP), nasal swab, sputum, and bronchoalveolar lavage (BAL) specimens from patients with signs and symptoms of infection who are suspected of COVID-19. Results are for the identification of SARS-CoV-2 RNA. The SARS-CoV-2 RNA is generally detectable during the acute phase of infection. The Aptima SARS-CoV-2 Assay on the [employer]igo Fusion system is intended for use by laboratory personnel specifically instructed and trained in the operation of the Navarre [employer]arre Fusion system. The Aptima SARS-CoV-2 assay is [...] information. Performed By: #### 3 1792 #### [facility] [address] [place] [address], [facility] POC GLUCOSE LABon 04-02-2022 Glucose [Mass/Vol] 126 mg/dL High 70-100 [facility] Comment on above: Performed By: #### 8 [id number] #### [facility] [address] [facility] [place] [address], [facility] Glucose [Mass/Vol] 102 mg/dL High 70-100 [facility] Comment on above: Performed By: #### 8 [id number] ####[facility] [facility] [address], [facility] Glucose [Mass/Vol] 123 mg/dL High 70-100 [facility] Comment on above: Performed By: #### 8 [id number] #### [facility] [address] [place] [address], [facility] Glucose [Mass/Vol] 96 mg/dL Normal 70-100 [facility] Comment on above: Performed By: #### 8 [id number] #### [facility] [address] [place] [address], [facility] POC SARS COV2 IDon 2 SARS-CoV-2 (COVID-19) RNA MATTHEW+probe Ql (Unsp spec) Negative Normal NEGATIVE [facility] Comment on above: Result Comment: ID [...] Accreditation. Performed By: #### 3 1921 #### [facility] [address] PROTHROMBIN TIMEon 2 INR Coag (PPP) [Relative time] 1.21 {INR} High 0.91-1.16 [facility] Comment on above: Order Comment: No: [...] 1995;[id number]. Performed By: #### 8 [id number] #### [facility] [address] [facility]. [address] PT Coag (PPP) [Time] 15.3 s High 12.3-14.8 [facility] Comment on above: Order Comment: No: D o not add to previous draw Result Comment: ALL RESULTS MUST BE INTERPRETED WITH RESPECT TO BLOOD DRAWING ARTIFACT OR DILUTION ERROR OF ANTICOAGULANT AT THE TIME OF SAMPLING. Performed By: #### 8 [id number] #### [facility] [address] [facility]. [address] UFH HEPARIN ASSAYon 04-02-20 22 UNFRACTIONATED HEPARIN 0.96 IU/mL Critically high 0.30-0.70 [facility] Comment on above: Result Comment: Resu lt checked and called. Accurately read back by Eyal Griffin RN at 0543 Rivaroxaban and Apixaban will interfere with the anti Xa assay used to monitor UFH and LMWH. Performed By: #### 8 [id number] #### [facility] [address] [facility]. [address] *SARS-CoV-2 COVID-19on 04-01 SARS-CoV-2 (COVID-19) RNA MATTHEW+probe Ql (Unsp spec) Not detected Normal Not Detected [facility] Comment on above: Order Comment: The A ptima SARS-CoV-2 assay is a nucleic acid amplification test intended for the qualitative detection of RNA from SARS-CoV-2 isolated and purified from nasopharyngeal (MEDICATION SPECIALIST),oropharyngeal (OP), nasal swab, sputum, and bronchoalveolar lavage (BAL) specimens from patients with signs and symptoms of infection who are suspected of COVID-19. Results are for the identification of SARS-CoV-2 RNA. The SARS-CoV-2 RNA is generally detectable during the acute phase of infection. The Aptima SARS-CoV-2 Assay on the Navarre and Navarre Fusion system is intended for use by laboratory personnel specifically instructed and trained in the operation of the Navarre and Navarre Fusion system. The Aptima SARS-CoV-2 assay is [...] information. Performed By: #### 3 1792 #### [facility] [address] [facility]. [address] AMMONIAon 04-01-2022 Ammonia (P) [Mass/Vol] ug/dL Critically low 11-32 [facility] Comment on above: Performed By: #### A MM ####[facility] [address] [place], [place] [address]Dr. Bhavani Camargo APTTon 04-01-2022 aPTT Coag (Bld) [Time] 35.4 s High 25.0-35.0 [facility] Comment on above: Order Comment: No: [...] PURPOSE. Performed By: #### 8 [id number] #### [facility] [address] [facility] [address] CBC AUTO DIFFon 04-01-2022 BASO # 0.2 103/ul Critically high 0.0-0.1 [facility] Comment on above: Performed By: #### C BC ####[facility] [address] [place] [id number] Camargo Basophils/100 WBC (Bld) 0.6 % Normal 0.2-2.0 [facility] Comment on above: Performed By: #### C BC ####[facility] [address] [place] [id number] Camargo EO # 0.0 103/ul Normal 0.0-0.7 [facility] Comment on above: Performed By: #### C BC ####[facility] C[address]ox[address] [place] [id number]. Bhavani Camargo Eosinophils/100 WBC (Bld) 0.1 % Critically low 0.9-7.0 [facility] Comment on above: Performed By: #### C BC ####[facility] [address] [place] [phone]. Bhavani Camargo Erythrocyte distribution width (RBC) [Ratio] 17.8 % Critically high 11.0-15.0 [facility] Comment on above: Performed By: #### C BC ####[facility] [address] [place] [phone]. Bhavani Camargo Hematocrit (Bld) [Volume fraction] 39.0 % Normal 36.0-48.0 [facility] Comment on above: Performed By: #### C BC ####[facility] [address] [place], [place] [address]Dr. Bhavani Camargo Hemoglobin (Bld) [Mass/Vol] 11.9 g/dL Critically low 12.0-16.0 [facility] Comment on above: Performed By: #### C BC ####[facility] [address] [place], [place] [id number]. Bhavani Camargo IG # 0.74 10e3/ul Critically high 0.00-0.03 [facility] Comment on above: Performed By: #### C BC ####[facility] [address] [place] [id number]. Bhavani Camargo IG % 2.2 % Critically high 0.0-0.5 [facility] Comment on above: Performed By: #### C BC ####[facility] [address] [place] [phone]. Bhavani Camargo LYMPH # 0.9 103/ul Critically low 1.2-3.8 [facility] Comment on above: Performed By: #### C BC ####[facility] [address] [place] [phone]. Bhavani Camargo Lymphocytes/100 WBC (Bld) 2.7 % Critically low 20.5-60.0 [facility] Comment on above: Performed By: #### C BC ####[facility] [address] [place] [address]Dr. Bhavani Camargo MANUAL DIFF REQ NO Normal [facility] Comment on above: Performed By: #### C BC ####[facility] [address] [place] [phone]. Bhavani Camargo MCH (RBC) [Entitic mass] 29.8 pg Normal 26.7-34.0 [facility] Comment on above: Performed By: #### C BC ####[facility] [address] [place] [address]Dr. Bhavani Camargo MCHC (RBC) [Mass/Vol] 30.5 g/dL Normal 29.9-35.2 [facility] Comment on above: Performed By: #### C BC ####[facility] [address] [place], [place] [address]Dr. Bhavani Camargo MCV (RBC) [Entitic vol] 97.5 fL Normal 81.0-99.0 [facility] Comment on above: Performed By: #### C BC ####[facility] [address] [place], [place] [address]Dr. Bhavani Camargo MONO # 0.6 103/ul Normal 0.3-0.8 [facility] Comment on above: Performed By: #### C BC ####[facility] [address] [place] [address]Dr. Bhavani Camargo Monocytes/100 WBC (Bld) 1.7 % Normal 1.7-12.0 [facility] Comment on above: Performed By: #### C BC ####[facility] [address] [place] [phone] Camargo NEUT # 30.7 103/ul Critically high 1.4-6.5 [facility] Comment on above: Performed By: #### C BC ####[facility] F[address]mlrjo[address] [place] [id number] Camargo Neutrophils/100 WBC (Bld) 92.7 % Critically high 43.0-75.0 [facility] Comment on above: Performed By: #### C BC ####[facility] [address] [place] [address]Dr. Bhavani Camargo Platelet mean volume (Bld) [Entitic vol] 9.8 fL Normal 9.5-13.5 [facility] Comment on above: Performed By: #### C BC ####[facility] [address] [place] [address]Dr. Bhavani Camargo PLT 372 103/ul Normal 150-450 [facility] Comment on above: Performed By: #### C BC ####[facility] [address] [place] [phone]. Bhavani Camargo RBC 4.00 106/ul Critically low 4.20-5.40 [facility] Comment on above: Performed By: #### C BC ####[facility] [address] [place] [phone]. Bhavani Camargo WBC 33.2 103/ul Critically high 4.0-11.0 [facility] Comment on above: Performed By: #### C BC ####[facility] [address] [place] [phone]. Bhavani Camargo CBC W/DIFFon 04-01-2022 ABS IMM GRANS 0.7 10*3/uL High 0.0-0.2 The [facility] Comment on above: Order Comment: No: D o not add to previous draw Performed By: #### 8 5499 #### [facility] [address] [facility] [place] [address], [facility] ABS NEUTROPHILS 30.0 10*3/uL High 1.6-7.6 The [facility] Comment on above: Order Comment: No: D o not add to previous draw Performed By: #### 8 [id number] #### [facility] [address] [place] [address], [facility] Basophils (Bld) [#/Vol] 0.2 10*3/uL Normal 0.0-0.2 [facility] Comment on above: Order Comment: No: D o not add to previous draw Performed By: #### 8 [id number] #### [facility] [address] [place] [address], [facility] Basophils/100 WBC (Bld) 0.5 % Normal 0.0-1.0 [facility] Comment on above: Order Comment: No: D o not add to previous draw Performed By: #### 8 5499 #### [facility] [address] [place] [address], [place] Eosinophils (Bld) [#/Vol] 0.0 10*3/uL Normal 0.0-0.5 [facility] Comment on above: Order Comment: No: D o not add to previous draw Performed By: #### 8 [id number] #### [facility] [address] [place] [address], [facility] Eosinophils/100 WBC (Bld) 0.1 % Normal 0.0-6.0 [facility] Comment on above: Order Comment: No: D o not add to previous draw Performed By: #### 8 [id number] #### [facility] [address] [place] [address], [facility] Erythrocyte distribution width (RBC) [Ratio] 18.3 % High 11.5-15.0 [facility] Comment on above: Order Comment: No: D o not add to previous draw Performed By: #### 8 [id number] #### [facility] [address] [place] [address], [facility] Hematocrit (Bld) [Volume fraction] 40.4 % Normal 36.0-45.0 [facility] Comment on above: Order Comment: No: D o not add to previous draw Performed By: #### 8 [id number] #### [facility] [address] [place] [address], [place] Hemoglobin (Bld) [Mass/Vol] 12.9 g/dL Normal 12.0-15.0 [facility] Comment on above: Order Comment: No: D o not add to previous draw Performed By: #### 8 [id number] #### [facility] [address] [place] [address], [facility] IMMATURE GRANS 2.1 % High 0.0-1.0 The [facility] Comment on above: Order Comment: No: D o not add to previous draw Performed By: #### 8 [id number] #### [facility] [address] [facility] [place] [address], [facility] Lymphocytes (Bld) [#/Vol] 0.8 10*3/uL Low 1.2-4.0 [facility] Comment on above: Order Comment: No: D o not add to previous draw Performed By: #### 8 [id number] #### [facility] [address] [facility] [place] [address], [facility] Lymphocytes/100 WBC (Bld) 2.6 % Low 20.0-45.0 [facility] Comment on above: Order Comment: No: D o not add to previous draw Performed By: #### 8 [id number] #### [facility] [address] [facility] [place] [address], [facility] MCH (RBC) [Entitic mass] 30.6 pg Normal 27.0-33.0 [facility] Comment on above: Order Comment: No: D o not add to previous draw Performed By: #### 8 [id number] #### [facility] [address] [facility]. [place] [id number], [facility] MCHC (RBC) [Mass/Vol] 31.9 g/dL Low 32.0-35.0 [facility] Comment on above: Order Comment: No: D o not add to previous draw Performed By: #### 8 [id number] #### [facility] [address] [place] [id number], [facility] MCV (RBC) [Entitic vol] 96.0 fL Normal 82.0-98.0 [facility] Comment on above: Order Comment: No: D o not add to previous draw Performed By: #### 8 [id number] #### [facility] [address] [place] [address], [facility] Monocytes (Bld) [#/Vol] 0.5 10*3/uL Normal 0.1-1.0 [facility] Comment on above: Order Comment: No: D o not add to previous draw Performed By: #### 8 [id number] #### [facility] [address] [place] [address], [facility] MONOS 1.7 % Low 5.0-12.0 [facility] Comment on above: Order Comment: No: D o not add to previous draw Performed By: #### 8 [id number] #### [facility] [address] [place] [address], [facility] Neutrophils/100 WBC (Bld) 93.0 % High 40.0-72.0 [facility] Comment on above: Order Comment: No: D o not add to previous draw Performed By: #### 8 [id number] #### [facility] [address] [place] [address], [facility] Nucleated RBC/100 WBC (Bld) [Ratio] 0 % Normal 0-0 [facility] Comment on above: Order Comment: No: D o not add to previous draw Performed By: #### 8 [id number] #### [facility] [address] [facility] [place] [address], [facility] PLAT CNT 375 10*3/uL Normal 150-400 [facility] Comment on above: Order Comment: No: D o not add to previous draw Performed By: #### 8 [id number] #### [facility] [address] [place] [address], [facility] RBC (Bld) [#/Vol] 4.21 10*6/uL Normal 3.80-5.00 [facility] Comment on above: Order Comment: No: D o not add to previous draw Performed By: #### 8 [id number] #### [facility] [address] [place] [address], [facility] WBC (Bld) [#/Vol] 32.19 10*3/uL High 4.00-10.60 [facility] Comment on above: Order Comment: No: D o not add to previous draw Performed By: #### 8 [id number] #### [facility] [address] [place] [address], [facility] COMP METABOLIC PANELon 04-01 Albumin [Mass/Vol] 3.1 g/dL Low 3.5-5.[address] [facility] Comment on above: Order Comment: No: D o not add to previous draw Performed By: #### 2 2706 #### [facility] [address] [place] [id number], [facility] ALKALINE PHOSPH 208 IU/L High 34-104 [facility] Comment on above: Order Comment: No: D o not add to previous draw Performed By: #### 2 2706 #### [facility] [address] [place] [id number], [facility] ALT [Catalytic activity/Vol] 27 U/L Normal 7-52 [facility] Comment on above: Order Comment: No: D o not add to previous draw Performed By: #### 2 2706 #### [facility] [address] [place] [address], [facility] AST [Catalytic activity/Vol] 12 U/L Low 13-39 [facility] Comment on above: Order Comment: No: D o not add to previous draw Performed By: #### 2 2706 #### [facility] [address] [place] [address], [facility] Bilirubin [Mass/Vol] 1.8 mg/dL High 0.3-1.0 [facility] Comment on above: Order Comment: No: D o not add to previous draw Performed By: #### 2 2706 #### [facility] [address] [place] [address], [place] Calcium [Mass/Vol] 8.3 mg/dL Low 8.6-10.[address] [facility] Comment on above: Order Comment: No: D o not add to previous draw Performed By: #### 2 2706 #### [facility] [address] [place] [address], [place] Chloride [Moles/Vol] 103 mmol/L Normal 98-107 [facility] Comment on above: Order Comment: No: D o not add to previous draw Performed By: #### 2 2706 #### [facility] [address] [place] [address], [place] CO2 [Moles/Vol] 20 mmol/L Low 21-31 [facility] Comment on above: Order Comment: No: D o not add to previous draw Performed By: #### 2 2706 #### [facility] [address] [place] [address], [place] Creatinine [Mass/Vol] 1.12 mg/dL Normal 0.60-1.20 [facility] Comment on above: Order Comment: No: D o not add to previous draw Performed By: #### 2 2706 #### [facility] [address] [place] [address], [facility] eGFR- 56 ml/min/1.73sq m Abnormal >60 [facility] Comment on above: Order Comment: No: D o not add to previous draw Result Comment: Calc ulation may not be valid for patients over 70 years Performed By: #### 2 2706 #### [facility] [address] [place] [address], [facility] eGFR- non- 47 ml/min/1.73sq m Abnormal >60 [facility] Comment on above: Order Comment: No: D o not add to previous draw Result Comment: Calc ulation may not be valid for patients over 70 years Performed By: #### 2 2706 #### [facility] [address] [place] [address], [place] Glucose [Mass/Vol] 110 mg/dL High 70-100 [facility] Comment on above: Order Comment: No: D o not add to previous draw Performed By: #### 2 2706 #### [facility] [address] [place] [address], [place] Potassium [Moles/Vol] 4.1 mmol/L Normal 3.5-5.1 [facility] Comment on above: Order Comment: No: D o not add to previous draw Performed By: #### 2 2706 #### [facility] [address] [place] [address], [place] Protein [Mass/Vol] 6.1 g/dL Normal 6.0-8.3 [facility] Comment on above: Order Comment: No: D o not add to previous draw Performed By: #### 2 2706 #### [facility] [address] [place] [address], [place] Sodium [Moles/Vol] 134 mmol/L Low 136-145 [facility] Comment on above: Order Comment: No: D o not add to previous draw Performed By: #### 2 2706 #### [facility] [address] [place] [address], [place] Urea nitrogen [Mass/Vol] 21 mg/dL Normal 7-25 [facility] Comment on above: Order Comment: No: D o not add to previous draw Performed By: #### 2 2706 #### [facility] [address] [place] [address], [place] DIGOXINon 04-01-2022 Digoxin [Mass/Vol] 0.6 ng/mL Low 0.7-2.0 [facility] Comment on above: Performed By: #### 2 2706 #### [facility] [address] [place] [address], [place] DIRECT BILIon 04-01-2022 Bilirubin.direct [Mass/Vol] 0.7 mg/dL High 0.0-0.2 [facility] Comment on above: Order Comment: No: D o not add to previous draw Performed By: #### 2 2706 #### [facility] [address] [place] [address], [place] LIPASEon 04-01-2022 Lipase [Catalytic activity/Vol] 2234.0 U/L Critically high 73.0-393.0 [facility] Comment on above: Performed By: #### L IPA, CMP ####[facility] [address] [place], [place] [address]Ma. Bhavani Camargo LIPASE BLOODon 04-01-2022 LIPASE 354 Units/L High 11-82 [facility] Comment on above: Order Comment: No: D o not add to previous draw Performed By: #### 2 2706 #### [facility] [address] [place] [address], [place] POC GLUCOSE LABon 04-01-2022 Glucose [Mass/Vol] 114 mg/dL High 70-100 [facility] Comment on above: Performed By: #### 8 5499 #### [facility] [address] [place] [address], [place] Glucose [Mass/Vol] 113 mg/dL High 70-100 [facility] Comment on above: Performed By: #### 8 5499 #### [facility] [address] [place] [address], [place] Glucose [Mass/Vol] 101 mg/dL High 70-100 [facility] Comment on above: Performed By: #### 3 0313 #### [facility] [address] [place] [address], [place] PROF 14(COMP METB)on 022 Albumin [Mass/Vol] 2.0 g/dL Critically low 3.4-5.0 [facility] Comment on above: Performed By: #### L IPA, CMP ####[facility] [address] [place] [address]Dr. Bhavani Camargo Albumin/Globulin [Mass ratio] 0.5 {ratio} Normal [facility] Comment on above: Performed By: #### L IPA, CMP ####[facility] [address] [place] [address]Dr. Bhavani Camargo ALP [Catalytic activity/Vol] 247 U/L Critically high 46-116 [facility] Comment on above: Performed By: #### L IPA, CMP ####[facility] H[address] [place], [place] [address]Dr. Bhavani Camargo ALT [Catalytic activity/Vol] 50 U/L Normal 14-59 [facility] Comment on above: Performed By: #### L IPA, CMP ####[facility] Pddepcaars[address] [place], [place] [address]Dr. Bhavani Camargo Anion gap [Moles/Vol] 11.2 mmol/L Normal [facility] Comment on above: Performed By: #### L IPA, CMP ####[facility] Ym[address] [place], [place] [address]Dr. Bhavani Camargo AST [Catalytic activity/Vol] 19 U/L Normal 15-37 [facility] Comment on above: Performed By: #### L IPA, CMP ####[facility] [address]qfw[address]uzn[address] [place], [place] [address]Dr. Bhavani Camargo Bilirubin [Mass/Vol] 1.5 mg/dL Critically high 0.2-1.0 [facility] Comment on above: Performed By: #### L IPA, CMP ####[facility] [address] [place], [place] [address]Dr. Bhavani Camargo Calcium [Mass/Vol] 8.1 mg/dL Critically low 8.5-10.1 [facility] Comment on above: Performed By: #### L IPA, CMP ####[facility] [address] [place], [place] [address]Dr. Bhavani Camargo Chloride [Moles/Vol] 105 mmol/L Normal 98-107 [facility] Comment on above: Performed By: #### L IPA, CMP ####[facility] T[address] [place], [place] [address]Dr. Bhavani Camargo CO2 [Moles/Vol] 25.1 mmol/L Normal 21.0-32.0 [facility] Comment on above: Performed By: #### L IPA, CMP ####[facility] Ppnmkizucj[address] [place], [place] [address]Dr. Bhavani Camargo Creatinine [Mass/Vol] 1.39 mg/dL Critically high 0.55-1.02 [facility] Comment on above: Performed By: #### L IPA, CMP ####[facility] [address]rwv[address] [place], [place] [address]Dr. Bhavani Camargo EGFR-AF MALAYSIAN 44 mL/min/1.73m2 Critically low >=60 [facility] Comment on above: Performed By: #### L IPA, CMP ####[facility] [address] [place], [place] [address]Dr. Bhavani Camargo EGFR-NON AF MALAYSIAN 36 mL/min/1.73m2 Critically low >=60 [facility] Comment on above: Performed By: #### L IPA, CMP ####[facility] K[address] [place], [place] [address]Dr. Bhavani Camargo Globulin (S) [Mass/Vol] 4.3 g/dL Normal [facility] Comment on above: Performed By: #### L IPA, CMP ####[facility] [address] [place], [place] [address]Dr. Bhavani Camargo Glucose [Mass/Vol] 113 mg/dL Critically high 74-106 [facility] Comment on above: Performed By: #### L IPA, CMP ####[facility] [address]utqjx[address] [place], [place] [address]Dr. Bhavani Camargo Potassium [Moles/Vol] 4.3 mmol/L Normal 3.5-5.1 [facility] Comment on above: Performed By: #### L IPA, CMP ####[facility] [address] [place] [address]Dr. Bhavani Camargo Protein [Mass/Vol] 6.3 g/dL Critically low 6.4-8.2 Th e [facility] Comment on above: Performed By: #### L IPA, CMP ####[facility] [address] [place], [place] [address]Dr. Bhavani Camargo Sodium [Moles/Vol] 137 mmol/L Normal 136-145 [facility] Comment on above: Performed By: #### L IPA, CMP ####[facility] R[address] [place], [place] [address]Dr. Bhavani Camargo Urea nitrogen [Mass/Vol] 26.0 mg/dL Critically high 7.0-18.0 [facility] Comment on above: Performed By: #### L IPA, CMP ####[facility] [address] [place], [place] [address]Dr. Bhavani Camargo Urea nitrogen/Creatinine [Mass ratio] 18.7 mg/mg Normal [facility] Comment on above: Performed By: #### L IPA, CMP ####[facility] [address]wfc[address] [place], [place] [address]Dr. Bhavani Camargo PROTIMEon 04-01-2022 INR Coag (PPP) [Relative time] 1.14 {INR} Normal [facility] Comment on above: Performed By: #### P TT, PT ####[facility] [address] [place], [place] [address]Dr. Bhavani Camargo INR GUIDELINES SEE BELOW Normal [facility] Comment on above: Result Comment: WALKER RED INR: 2.0 - 3.0 CONDITIONS NOT LISTED BELOW 2.5 - 3.5 FOR PROSTHETIC HEART VALVE REPLACEMENT 2.5 - 3.5 RECURRENT THROMBOSIS Performed By: #### P TT, PT ####[facility] [address] [place], [place] [address]Dr. Bhavani Camargo PT Coag (PPP) [Time] 12.2 s Critically high 9.0-11.6 [facility] Comment on above: Performed By: #### P TT, PT ####[facility] [address] [place], [place] [address]Dr. Bhavani Camargo PTTon 04-01-2022 aPTT Coag (Bld) [Time] 25.4 s Normal 22.3-36.2 [facility] Comment on above: Performed By: #### P TT, PT ####[facility] [address] [place] [phone]. Bhavani Camargo TROPONIN-Ion 04-01-2022 Troponin I.cardiac [Mass/Vol] 0.02 ng/mL Normal 0.00-0.04 [facility] Comment on above: Result Comment: REFE RENCE RANGES: 0.00 - 0.04 ng/ml NORMAL 0.05 - 0.50 ng/ml INDETERMINATE > 0.50 ng/ml CONSISTENT WITH AN M.I. Performed By: #### 2 2706 #### [facility] [address] [facility]. [address] UFH HEPARIN ASSAYon 04-01-20 UNFRACTIONATED HEPARIN >1.00 Critically high 0.30-0.70 [facility] Comment on above: Result Comment: Resu lt checked and called. Accurately read back by EYAL GRIFFIN RN ON 04/01/2022 AT 22:07 Rivaroxaban and Apixaban will interfere with the anti Xa assay used to monitor UFH and LMWH. Performed By: #### 8 [id number] #### [facility] [address] [facility] [place] [place] [address], [facility] UNFRACTIONATED HEPARIN >1.00 Critically high 0.30-0.70 [facility] Comment on above: Result Comment: Resu lt checked and called. Accurately read back by YANICK MICHAELS RN ON 04/01/2022 AT 16:07 Rivaroxaban and Apixaban will interfere with the anti Xa assay used to monitor UFH and LMWH. Performed By: #### 8 [id number] #### [facility] [address] [facility] [address], [facility] AMMONIAon 03-31-2022 Ammonia (P) [Mass/Vol] ug/dL Critically low 11-32 [facility] Comment on above: Performed By: #### A MM ####[facility] [address] [place] [phone]. Bhavani Camargo CBC AUTO DIFFon 03-31-2022 BASO # 0.1 103/ul Normal 0.0-0.1 [facility] Comment on above: Performed By: #### C BC ####[facility] [address] [place] [address]Dr. Jayceeroxi Camargo Basophils/100 WBC (Bld) 0.4 % Normal 0.2-2.0 [facility] Comment on above: Performed By: #### C BC ####[facility] Y[address] [place] [address]Dr. Bhavani Laurel EO # 0.0 103/ul Normal 0.0-0.7 [facility] Comment on above: Performed By: #### C BC ####[facility] [address] [place], [place] [address]Dr. Jayceeroxi Camargo Eosinophils/100 WBC (Bld) 0.1 % Critically low 0.9-7.0 [facility] Comment on above: Performed By: #### C BC ####[facility] [address] [place], [place] [address]Dr. Bhavani Camargo Erythrocyte distribution width (RBC) [Ratio] 17.7 % Critically high 11.0-15.0 [facility] Comment on above: Performed By: #### C BC ####[facility] [address] [place], [place] [address]Dr. Jayceeroxi Camargo Hematocrit (Bld) [Volume fraction] 36.5 % Normal 36.0-48.0 [facility] Comment on above: Performed By: #### C BC ####[facility] Rh[address]odf[address] [place], [place] [address]Dr. Jayceeroxi Camargo Hemoglobin (Bld) [Mass/Vol] 11.5 g/dL Critically low 12.0-16.0 [facility] Comment on above: Performed By: #### C BC ####[facility] [address] [place], [place] [address]Dr. Bhavani Camargo IG # 0.38 10e3/ul Critically high 0.00-0.03 [facility] Comment on above: Performed By: #### C BC ####[facility] [address] [place] [phone] Bhavani Laurel IG % 1.2 % Critically high 0.0-0.5 [facility] Comment on above: Performed By: #### C BC ####[facility] Y[address]cfmot[address] [place] [phone] Bhavani Laurel LYMPH # 0.7 103/ul Critically low 1.2-3.8 [facility] Comment on above: Performed By: #### C BC ####[facility] Patkcmzffw[address] [place] [phone] Bhavani Laurel Lymphocytes/100 WBC (Bld) 2.4 % Critically low 20.5-60.0 [facility] Comment on above: Performed By: #### C BC ####[facility] [address]lueme[address] [place] [phone] Camargo MANUAL DIFF REQ NO Normal [facility] Comment on above: Performed By: #### C BC ####[facility] [address]rug[address] [place] [phone]. Bhavani Laurel MCH (RBC) [Entitic mass] 30.3 pg Normal 26.7-34.0 [facility] Comment on above: Performed By: #### C BC ####[facility] Ldztbkximw32[address] [place] [phone]. Bhavani Laurel MCHC (RBC) [Mass/Vol] 31.5 g/dL Normal 29.9-35.2 [facility] Comment on above: Performed By: #### C BC ####[facility] [address]jcwy[address] [place] [phone] Jayceeroxi Camargo MCV (RBC) [Entitic vol] 96.3 fL Normal 81.0-99.0 [facility] Comment on above: Performed By: #### C BC ####[facility] Bms[address]ds[address] [place] [phone] Camargo MONO # 0.8 103/ul Normal 0.3-0.8 [facility] Comment on above: Performed By: #### C BC ####[facility] Pedzdwmamh[address] [place] [phone]. Bhavani Camargo Monocytes/100 WBC (Bld) 2.5 % Normal 1.7-12.0 [facility] Comment on above: Performed By: #### C BC ####[facility] Bzqhqgkqgv40[address] [place] [phone]. Bhavani Camargo NEUT # 29.0 103/ul Critically high 1.4-6.5 [facility] Comment on above: Performed By: #### C BC ####[facility] [address] [place] [address]Dr. Bhavani Camargo Neutrophils/100 WBC (Bld) 93.4 % Critically high 43.0-75.0 [facility] Comment on above: Performed By: #### C BC ####[facility] V[address]kwfttkf[address] [place] [address]Dr. Bhavani Camargo Platelet mean volume (Bld) [Entitic vol] 10.5 fL Normal 9.5-13.5 [facility] Comment on above: Performed By: #### C BC ####[facility] H[address]oppsiaa[address] [place] [address]Dr. Bhavani Camargo PLT 346 103/ul Normal 150-450 [facility] Comment on above: Performed By: #### C BC ####[facility] Bfznnidfdz[address] [place] [address]Dr. Bhavani Camargo RBC 3.79 106/ul Critically low 4.20-5.40 [facility] Comment on above: Performed By: #### C BC ####[facility] Bomnhdvbed[address] [place] [phone]. Bhavani Camargo WBC 31.0 103/ul Critically high 4.0-11.0 [facility] Comment on above: Performed By: #### C BC ####[facility] Kmdzwlslth[address] [place] [phone]. Bhavani Camargo CT CHEST WO CONon 03-31-2022 CT CHEST WO CON Normal [facility] LIPASEon 03-31-2022 Lipase [Catalytic activity/Vol] 3577.0 U/L Critically high 73.0-393.0 [facility] Comment on above: Performed By: #### L IPA ####[facility] [address]cgat[address] [place] [address]Dr. Bhavani Camargo MRI ABDOMEN WO CONon 022 MRI ABDOMEN WO CON Normal [facility] POINT OF CARE GLUCOSEon 03-18 Glucose [Mass/Vol] 153 mg/dL Critically high 74-106 [facility] Comment on above: Performed By: #### P OCGLUC ####[facility] [address] [place] [address]Dr. Bhavani Camargo Glucose [Mass/Vol] 158 mg/dL Critically high 74-106 [facility] Comment on above: Performed By: #### P OCGLUC ####[facility] [address] [place], [place] [address]Dr. Bhavani Camargo Glucose [Mass/Vol] 120 mg/dL Critically high 74-106 [facility] Comment on above: Performed By: #### P OCGLUC ####[facility] Fcyqgmcpnk7[address] [place] [address]Dr. Bhavani Camargo Glucose [Mass/Vol] 74 mg/dL Normal 74-106 [facility] Comment on above: Performed By: #### P OCGLUC ####[facility] Pelfaqzdvx54[address] [place] [address]Dr. Bhavani Camargo PROF 14(COMP METB)on 022 Albumin [Mass/Vol] 1.9 g/dL Critically low 3.4-5.0 [facility] Comment on above: Performed By: #### C MP ####[facility] Cpjfiftjsf[address] [place] [address]Dr. Bhavani Camargo Albumin/Globulin [Mass ratio] 0.5 {ratio} Normal [facility] Comment on above: Performed By: #### C MP ####[facility] Sm[address]ztowz[address] [place] [address]Dr. Bhavani Camargo ALP [Catalytic activity/Vol] 283 U/L Critically high 46-116 [facility] Comment on above: Performed By: #### C MP ####[facility] Dhswljuvfr0223 [place] [phone]. Bhavani Camargo ALT [Catalytic activity/Vol] 64 U/L Critically high 14-59 [facility] Comment on above: Performed By: #### C MP ####[facility] Gorjqtfdoz5575 [place] [phone]. Bhavani Camargo Anion gap [Moles/Vol] 11.6 mmol/L Normal [facility] Comment on above: Performed By: #### C MP ####[facility] Lukajjmjfa[address] [place] [phone]. Bhavani Camargo AST [Catalytic activity/Vol] 52 U/L Critically high 15-37 [facility] Comment on above: Performed By: #### C MP ####[facility] O[address]qmtqn45[address] [place] [phone]. Bhavani Laurel Bilirubin [Mass/Vol] 2.8 mg/dL Critically high 0.2-1.0 [facility] Comment on above: Performed By: #### C MP ####[facility] Ahtelvjegp[address] [place] [phone]. Bhavani Camargo Calcium [Mass/Vol] 7.9 mg/dL Critically low 8.5-10.1 Th e [facility] Comment on above: Performed By: #### C MP ####[facility] Kiiardnehe[address] [place] [phone]. Bhavani Laurel Chloride [Moles/Vol] 102 mmol/L Normal 98-107 [facility] Comment on above: Performed By: #### C MP ####[facility] Pgkuiutayi2580 [place] [phone]. Bhavani Camargo CO2 [Moles/Vol] 27.4 mmol/L Normal 21.0-32.0 [facility] Comment on above: Performed By: #### C MP ####[facility] Dqdasuuguw3827 [place] [phone]. Bhavani Laurel Creatinine [Mass/Vol] 1.48 mg/dL Critically high 0.55-1.02 [facility] Comment on above: Performed By: #### C MP ####[facility] Jtxmoqsjcz1760 [place] [phone]. Bhavani Camargo EGFR-AF MALAYSIAN 41 mL/min/1.73m2 Critically low >=60 [facility] Comment on above: Performed By: #### C MP ####[facility] Fkeziuaajz7838 [place] [phone]. Bhavani Laurel EGFR-NON AF MALAYSIAN 34 mL/min/1.73m2 Critically low >=60 [facility] Comment on above: Performed By: #### C MP ####[facility] Sfhorolnwi64[address] [place] [address]Dr. Bhavani Laurel Globulin (S) [Mass/Vol] 4.0 g/dL Normal [facility] Comment on above: Performed By: #### C MP ####[facility] Ruez[address]uttj[address] [place] [address]Dr. Bhavani Laurel Glucose [Mass/Vol] 84 mg/dL Normal 74-106 [facility] Comment on above: Performed By: #### C MP ####[facility] Crsisipkaa[address] [place] [address]Dr. Bhavani Laurel Potassium [Moles/Vol] 4.0 mmol/L Normal 3.5-5.1 [facility] Comment on above: Performed By: #### C MP ####[facility] Yrgxslmjrx3751 [place] [address]Dr. Bhavani Laurel Protein [Mass/Vol] 5.9 g/dL Critically low 6.4-8.2 [facility] Comment on above: Performed By: #### C MP ####[facility] Wjpdcnojko[address] [place] [address]Dr. Bhavani Camargo Sodium [Moles/Vol] 137 mmol/L Normal 136-145 [facility] Comment on above: Performed By: #### C MP ####[facility] L[address]jsepphlp79[address] [place] [phone]. Bhavani Laurel Urea nitrogen [Mass/Vol] 26.0 mg/dL Critically high 7.0-18.0 [facility] Comment on above: Performed By: #### C MP ####[facility] [address] [place], [place] [address]Dr. Bhavani Camargo Urea nitrogen/Creatinine [Mass ratio] 17.6 mg/mg Normal [facility] Comment on above: Performed By: #### C MP ####[facility] Q[address]rpet[address] [place], [place] [address]Dr. Bhavani Camargo PROTIMEon 03-31-2022 INR Coag (PPP) [Relative time] 1.34 {INR} Normal [facility] Comment on above: Performed By: #### P T, PTT ####[facility] [address] [place], [place] [address]Dr. Bhavani Camargo INR GUIDELINES SEE BELOW Normal [facility] Comment on above: Result Comment: WALKER RED INR: 2.0 - 3.0 CONDITIONS NOT LISTED BELOW 2.5 - 3.5 FOR PROSTHETIC HEART VALVE REPLACEMENT 2.5 - 3.5 RECURRENT THROMBOSIS Performed By: #### P T, PTT ####[facility] [address]pacz[address] [place], [place] [address]Dr. Bhavani Camargo PT Coag (PPP) [Time] 14.2 s Critically high 9.0-11.6 [facility] Comment on above: Performed By: #### P T, PTT ####[facility] Uuiysygetb[address] [place], [place] [address]Dr. Bhavani Camargo PTTon 03-31-2022 aPTT Coag (Bld) [Time] 37.6 s Critically high 22.3-36.2 [facility] Comment on above: Performed By: #### P T, PTT ####[facility] Bchxit[address]qf[address] [place], [place] [address]Dr. Bhavani Camarog XR CHEST 1 Von 03-31-2022 XR CHEST 1 V Normal [facility] AMMONIAon 03-30-2022 Ammonia (P) [Moles/Vol] 30 umol/L Normal 11-32 [facility] Comment on above: Performed By: #### A MM ####[facility] Ppsdnzbjze[address] [place], [place] [address]Dr. Bhavani Camargo CBC W MANUAL DIFFon 03-30-20 22 ATYPICAL LYMPH # Normal [facility] Comment on above: Performed By: #### C OMID ####[facility] [address]tcjhnuezb[address] [place] [address]Dr. Bhavani Camargo ATYPICAL LYMPH % Normal [facility] Comment on above: Performed By: #### C OMID ####[facility] F[address]ijvuk[address] [place] [address]Dr. Bhavani Camargo BAND # Normal 0.0-0.3 [facility] Comment on above: Performed By: #### C OMID ####[facility] Smfielocpr[address] [place] [address]Dr. Bhavani Camargo BAND % Normal 0-5 [facility] Comment on above: Performed By: #### C OMID ####[facility] Reeefsfeyw7[address] [place] [address]Dr. Bhavani Camargo BASOM # 0.00 103/ul Normal 0.00-0.10 [facility] Comment on above: Performed By: #### C OMID ####[facility] Xdcwimqvym1592 [place] [address]Dr. Bhavani Laurel BASOM % 0.0 % Critically low 0.2-2.0 [facility] Comment on above: Performed By: #### C OMID ####[facility] Vljvammokd8967 [place] [address]Dr. Bhavani Camargo BLAST # Normal [facility] Comment on above: Performed By: #### C OMID ####[facility] Guzwjgxcli6413 [place] [address]Dr. Bhavani Camargo BLAST % Normal [facility] Comment on above: Performed By: #### C OMID ####[facility] Seqhznszxz4646 [place] [address]Dr. Bhavani Laurel CORRECTED WBC Normal 4.0-11.0 [facility] Comment on above: Performed By: #### C OMID ####[facility] Kkndakxnjw8165 [place] [address]DrLydia Camargo EOS # 0.00 103/ul Normal 0.00-0.70 [facility] Comment on above: Performed By: #### C OMID ####[facility] Mwplhdbnxv1927 [place], [place] [address]Yu. Bhavani Camargo EOS% 0.0 % Critically low 0.9-7.0 [facility] Comment on above: Performed By: #### C OMID ####[facility] Cgqstpenjh2888 [place], [place] [address]Fj. Bhavani Camargo HCT 39.8 % Normal 36.0-48.0 [facility] Comment on above: Performed By: #### C OMID ####[facility] Zvrgsjoxnr0036 [place] [phone]. Bhavani Camargo HGB 12.2 g/dl Normal 12.0-16.0 [facility] Comment on above: Performed By: #### C OMID ####[facility] Zdfghttwqi8219 [place] [phone]. Bhavani Camargo LYMPHM # 0.56 103/ul Critically low 1.20-3.80 [facility] Comment on above: Performed By: #### C OMID ####[facility] Lbyzwfvohc0590 [place] [phone]. Bhavani Camargo LYMPHM% 2.0 % Critically low 20.5-60.0 [facility] Comment on above: Performed By: #### C OMID ####[facility] Djqnpuqedh4915 [place] [phone]. Bhavani Camargo MCH 29.7 pg Normal 26.7-34.0 [facility] Comment on above: Performed By: #### C OMID ####[facility] Odkogklagi0520 [place] [phone]. Bhavani Camargo MCHC 30.7 g/dl Normal 29.9-35.2 [facility] Comment on above: Performed By: #### C OMID ####[facility] Zhnlewsiop8700 [place], [place] [address]AaLydia Camargo MCV 96.8 fL Normal 81.0-99.0 [facility] Comment on above: Performed By: #### C OMID ####[facility] Uokxgvqwtn5612 [place] [phone]. Bhavani Camargo METAMYELOCYTE # Normal [facility] Comment on above: Performed By: #### C OMID ####[facility] Lbprubvuiv0917 [place] [phone]. Bhavani Camargo METAMYELOCYTE % Normal [facility] Comment on above: Performed By: #### C OMID ####[facility] Qeymagwmrx3420 [place] [phone]. Bhavani Camargo MONOM# 0.28 103/ul Critically low 0.30-0.80 [facility] Comment on above: Performed By: #### C OMID ####[facility] Wqydscgdfo9790 [place] [address]Dr. Bhavani Camargo MONOM% 1.0 % Critically low 1.7-12.0 [facility] Comment on above: Performed By: #### C OMID ####[facility] Vcevadrdfe[address] [place], [place] [address]Dr. Bhavani Camargo MPV 10.2 fL Normal 9.5-13.5 [facility] Comment on above: Performed By: #### C OMID ####[facility] Dfdzlvoszd[address] [place], [place] [address]Dr. Bhavani Camargo MYELOCYTE # Normal [facility] Comment on above: Performed By: #### C OMID ####[facility] Gkcjsippve9283 [place] [address]Dr. Bhavani Camargo MYELOCYTE % Normal [facility] Comment on above: Performed By: #### C OMID ####[facility] Qojmnnplhy[address] [place], [place] [address]Dr. Bhavani Camargo NRBC Normal [facility] Comment on above: Performed By: #### C OMID ####[facility] Dsmtpudzjb9595 [place] [address]Dr. Bhavani Camargo PLT 371 103/ul Normal 150-450 [facility] Comment on above: Performed By: #### C OMID ####[facility] Ukablyenro7598 [place], [place] [address]Yl. Bhavani Camargo RBC 4.11 106/ul Critically low 4.20-5.40 [facility] Comment on above: Performed By: #### C OMID ####[facility] Glssvmxvqt1113 [place], [place] [address]Sl. Bhavani Camargo RDW 17.4 % Critically high 11.0-15.0 [facility] Comment on above: Performed By: #### C OMID ####[facility] Jwjifeinlp0917 [place], [place] [address]Cm. Bhavani Camargo SEG # 27.35 103/ul Critically high 1.40-6.50 [facility] Comment on above: Performed By: #### C OMID ####[facility] Qfelxjkaol0072 [place] [phone]. Bhavani Camargo SEG % 97.0 % Critically high 43.0-75.0 [facility] Comment on above: Performed By: #### C OMID ####[facility] Lnxrbclxlt8997 [place] [phone]. Bhavani Camargo WBC 28.2 103/ul Critically high 4.0-11.0 [facility] Comment on above: Performed By: #### C OMID ####[facility] Owaymltwaf0480 [place] [phone]. hBavani Camargo POINT OF CARE GLUCOSEon 05-1 Glucose [Mass/Vol] 92 mg/dL Normal 74-106 [facility] Comment on above: Performed By: #### P OCGLUC ####[facility] Ucrzlgmtwo5420 [place] [phone]. Bhavani Camargo Glucose [Mass/Vol] 122 mg/dL Critically high 74-106 [facility] Comment on above: Result Comment: Foll ow Protocol Performed By: #### P OCGLUC ####[facility] Zcwtoyxujr8509 [place] [phone]. Bhavani Camargo Glucose [Mass/Vol] 107 mg/dL Critically high 74-106 [facility] Comment on above: Performed By: #### P OCGLUC ####[facility] Gqoyfflgbs7742 [place] [address]Dr. Bhavani Camargo PROF 14(COMP METB)on 022 Albumin [Mass/Vol] 2.0 g/dL Critically low 3.4-5.0 [facility] Comment on above: Performed By: #### C MP ####[facility] Grsvnvdocu7503 [place] [address]Dr. Bhavani Camargo Albumin/Globulin [Mass ratio] 0.5 {ratio} Normal [facility] Comment on above: Performed By: #### C MP ####[facility] Hlmacgtjlx9266 [place] [address]Dr. Bhavani Camargo ALP [Catalytic activity/Vol] 298 U/L Critically high 46-116 [facility] Comment on above: Performed By: #### C MP ####[facility] Jllwqicyds[address] [place], [place] [address]Dr. Bhavani Camargo ALT [Catalytic activity/Vol] 94 U/L Critically high 14-59 [facility] Comment on above: Performed By: #### C MP ####[facility] Dyyehyqvty[address] [place], [place] [address]Dr. Bhavani Camargo Anion gap [Moles/Vol] 12.8 mmol/L Normal [facility] Comment on above: Performed By: #### C MP ####[facility] Awtothzvwb[address] [place], [place] [address]Dr. Bhavani Camargo AST [Catalytic activity/Vol] 73 U/L Critically high 15-37 [facility] Comment on above: Performed By: #### C MP ####[facility] Gxjepdxbxd7343 [place] [address]Dr. Bhavani Camargo Bilirubin [Mass/Vol] 3.6 mg/dL Critically high 0.2-1.0 [facility] Comment on above: Performed By: #### C MP ####[facility] Qsrztpnsss[address] [place], [place] [address]Dr. Bhavani Camargo Calcium [Mass/Vol] 7.8 mg/dL Critically low 8.5-10.1 [facility] Comment on above: Performed By: #### C MP ####[facility] Hrmopqpovr9296 [place] [address]Dr. Bhavani Camargo Chloride [Moles/Vol] 103 mmol/L Normal 98-107 [facility] Comment on above: Performed By: #### C MP ####[facility] Zjvkpppxlr4360 [place] [phone]. Bhavani Camargo CO2 [Moles/Vol] 25.2 mmol/L Normal 21.0-32.0 [facility] Comment on above: Performed By: #### C MP ####[facility] Qypcaoabvp2989 [place] [address]Dr. Bhavani Laurel Creatinine [Mass/Vol] 1.38 mg/dL Critically high 0.55-1.02 [facility] Comment on above: Performed By: #### C MP ####[facility] Cxzvynxoat[address] [place], [place] [address]Dr. Jayceeroxi Laurel EGFR-AF MALAYSIAN 44 mL/min/1.73m2 Critically low >=60 [facility] Comment on above: Performed By: #### C MP ####[facility] Kiughscemr[address] [place], [place] [address]Dr. Bhavani Laurel EGFR-NON AF MALAYSIAN 37 mL/min/1.73m2 Critically low >=60 [facility] Comment on above: Performed By: #### C MP ####[facility] Xloqigyvwe1695 [place] [address]Dr. Bhavani Laurel Globulin (S) [Mass/Vol] 4.1 g/dL Normal [facility] Comment on above: Performed By: #### C MP ####[facility] Ohvbcpsnxf8365 [place] [address]Dr. Bhavani Camargo Glucose [Mass/Vol] 109 mg/dL Critically high 74-106 [facility] Comment on above: Performed By: #### C MP ####[facility] Udhxohxkod9860 [place] [address]Dr. Bhavani Camargo Potassium [Moles/Vol] 4.0 mmol/L Normal 3.5-5.1 [facility] Comment on above: Performed By: #### C MP ####[facility] Jgtgqsalsr5165 [place] [address]Dr. Bhavani Camargo Protein [Mass/Vol] 6.1 g/dL Critically low 6.4-8.2 [facility] Comment on above: Performed By: #### C MP ####[facility] Ttaideazno6[address] [place], [place] [address]Dr. Bhavani Camagro Sodium [Moles/Vol] 137 mmol/L Normal 136-145 [facility] Comment on above: Performed By: #### C MP ####[facility] Blpbhjmnki[address] [place], [place] [address]Dr. Bhavani Camargo Urea nitrogen [Mass/Vol] 22.0 mg/dL Critically high 7.0-18.0 [facility] Comment on above: Performed By: #### C MP ####[facility] Nlqpwffnoz024[address] [place], [place] [address]Dr. Bhavani Camargo Urea nitrogen/Creatinine [Mass ratio] 15.9 mg/mg Normal [facility] Comment on above: Performed By: #### C MP ####[facility] Gnobqjxgfx[address] [place], [place] [address]Dr. Bhavani Camargo PROTIMEon 03-30-2022 INR Coag (PPP) [Relative time] 1.28 {INR} Normal [facility] Comment on above: Performed By: #### P T, PTT ####[facility] Atdlfgybrn9[address] [place], [place] [address]Dr. Bhavani Camargo INR GUIDELINES SEE BELOW Normal [facility] Comment on above: Result Comment: WALKER RED INR: 2.0 - 3.0 CONDITIONS NOT LISTED BELOW 2.5 - 3.5 FOR PROSTHETIC HEART VALVE REPLACEMENT 2.5 - 3.5 RECURRENT THROMBOSIS Performed By: #### P T, PTT ####[facility] Vphyeqhktn52[address] [place], [place] [address]Dr. Bhavani Camargo PT Coag (PPP) [Time] 13.6 s Critically high 9.0-11.6 [facility] Comment on above: Performed By: #### P T, PTT ####[facility] Qdavsbqiut1661 [place] [address]Dr. Bhavani Camargo PTTon 03-30-2022 aPTT Coag (Bld) [Time] 34.9 s Normal 22.3-36.2 [facility] Comment on above: Performed By: #### P T, PTT ####[facility] V[address]qjhbssbz[address] [place], [place] [address]Dr. Bhavani Camargo US SINGLE QUAD RT UPPERon US SINGLE QUAD RT UPPER Normal [facility] AMMONIAon 03-29-2022 Ammonia (P) [Moles/Vol] 17 umol/L Normal 11-32 [facility] Comment on above: Performed By: #### A MM ####[facility] Nuxiwjrxou[address] [place], [place] [address]Dr. Bhavani Camargo CBC W MANUAL DIFFon 03-29-20 ANISOCYTOSIS 2+ Normal [facility] Comment on above: Performed By: #### C BCMAN ####[facility] Yabioqxmdc[address] [place], [place] [address]Dr. Bhavani Camargo ATYPICAL LYMPH # Normal [facility] Comment on above: Performed By: #### C BCMAN ####[facility] Rsdsjkkvbo04[address] [place], [place] [address]Dr. Bhavani Laurel ATYPICAL LYMPH % Normal [facility] Comment on above: Performed By: #### C BCMAN ####[facility] H[address]hqbjzty8[address] [place], [place] [address]Dr. Bhavani Camargo BAND # 1.2 103/ul Critically high 0.0-0.3 [facility] Comment on above: Performed By: #### C BCMAN ####[facility] Gexhjhaafr7[address] [place], [place] [address]Dr. Bhavani Camargo BAND % 4 % Normal 0-5 [facility] Comment on above: Performed By: #### C BCMAN ####[facility] Crgsnjvmbf77[address] [place], [place] [address]Dr. Bhavani Camargo BASOM # 0.00 103/ul Normal 0.00-0.10 [facility] Comment on above: Performed By: #### C OMID ####[facility] Nrorjfygag8655 [place] [address]Dr. Bhavani Camargo BASOM % 0.0 % Critically low 0.2-2.0 [facility] Comment on above: Performed By: #### C OMID ####[facility] Fxrvdckjde4518 [place] [address]Dr. Bhavani Camargo BLAST # Normal [facility] Comment on above: Performed By: #### C BCJERSON ####[facility] Lxjnvjszlz0556 [place] [address]Dr. Bhavani Camargo BLAST % Normal [facility] Comment on above: Performed By: #### C OMID ####[facility] Zmyihdmfxs65[address] [place], [place] [address]Dr. Bhavani Camargo CORRECTED WBC Normal 4.0-11.0 [facility] Comment on above: Performed By: #### C OMID ####[facility] Lrqewwzxxh[address] [place], [place] [address]Dr. Bhavani Camargo EOS # 0.00 103/ul Normal 0.00-0.70 [facility] Comment on above: Performed By: #### C OMID ####[facility] Bwyqfvqwsa14[address] [place], [place] [address]Dr. Bhavani Camargo EOS% 0.0 % Critically low 0.9-7.0 [facility] Comment on above: Performed By: #### C OMID ####[facility] Qwwhwybayp[address] [place], [place] [address]Dr. Bhavani Camargo HCT 41.4 % Normal 36.0-48.0 [facility] Comment on above: Performed By: #### C OMID ####[facility] Uvjqatvmzr[address] [place], [place] [address]Dr. Bhavani Camargo HGB 12.6 g/dl Normal 12.0-16.0 [facility] Comment on above: Performed By: #### C OMID ####[facility] C[address]vlczfypv7[address] [place], [place] [address]Dr. Bhavani Camargo LYMPHM # 0.62 103/ul Critically low 1.20-3.80 [facility] Comment on above: Performed By: #### C OMID ####[facility] Pgmvjrftwg2879 [place] [address]Dr. Bhavani Camargo LYMPHM% 2.0 % Critically low 20.5-60.0 [facility] Comment on above: Performed By: #### C OMID ####[facility] Ozkhxillya4954 [place] [address]Dr. Bhavani Camargo MCH 29.6 pg Normal 26.7-34.0 [facility] Comment on above: Performed By: #### C OMID ####[facility] Mnoryvisrs6913 [place] [address]Dr. Bhavani Camargo MCHC 30.4 g/dl Normal 29.9-35.2 [facility] Comment on above: Performed By: #### C OMID ####[facility] Vpiqrqzfrh3811 [place] [address]Dr. Bhavani Camargo MCV 97.4 fL Normal 81.0-99.0 [facility] Comment on above: Performed By: #### C OMID ####[facility] Rfafwhldbf9[address] [place], [place] [address]Dr. Bhavani Camargo METAMYELOCYTE # Normal [facility] Comment on above: Performed By: #### C OMID ####[facility] Hgjelmnsht4561 [place] [phone]. Bhavani Camargo METAMYELOCYTE % Normal [facility] Comment on above: Performed By: #### C OMID ####[facility] Lzhhztpjbx4039 [place] [phone]. Bhavani Camargo MONOM# 0.93 103/ul Critically high 0.30-0.80 [facility] Comment on above: Performed By: #### C OMID ####[facility] Fyurzpgfvh9911 [place] [phone]. Bhavani Camargo MONOM% 3.0 % Normal 1.7-12.0 [facility] Comment on above: Performed By: #### C OMID ####[facility] Jmwgkboyoj8947 [place], [place] [address]Vr. Bhavani Camargo MPV 9.7 fL Normal 9.5-13.5 [facility] Comment on above: Performed By: #### C OMID ####[facility] Crfrehhhuz1020 [place], [place] [address]Cg. Bhavani Camargo MYELOCYTE # Normal [facility] Comment on above: Performed By: #### C OMID ####[facility] Yxogsbqzof0398 [place], [place] [address]Fq. Bhavani Camargo MYELOCYTE % Normal [facility] Comment on above: Performed By: #### C OMID ####[facility] Qawtgdenjh6185 [place] [phone]. Bhavani Camargo NRBC Normal [facility] Comment on above: Performed By: #### C OMID ####[facility] Kcxgzjootz9223 [place], [place] [address]Gy. Bhavani Camargo PLT 362 103/ul Normal 150-450 [facility] Comment on above: Performed By: #### C OMID ####[facility] Lraszzrtuj5621 [place], [place] [address]Uu. Bhavani Camargo RBC 4.25 106/ul Normal 4.20-5.40 [facility] Comment on above: Performed By: #### C OMID ####[facility] Cunhljxqvs9106 [place], [place] [address]Ru. Bhavani Camargo RDW 17.2 % Critically high 11.0-15.0 [facility] Comment on above: Performed By: #### C OMID ####[facility] Swuqheklig5217 [place], [place] [address]Gs. Bhavani Camargo SEG # 28.12 103/ul Critically high 1.40-6.50 The [facility] Comment on above: Performed By: #### C OMID ####[facility] Hyeyvmcoar4091 [place], [place] [address]Af. Bhavani Camargo SEG % 91.0 % Critically high 43.0-75.0 [facility] Comment on above: Performed By: #### C OMID ####[facility] Iacvzrcdtf9382 [place] [phone]. Bhavani Camargo WBC 30.9 103/ul Critically high 4.0-11.0 [facility] Comment on above: Result Comment: repe ated Performed By: #### C BCMAN ####[facility] Tdpqzfmwxp6799 [place] [address]Dr. Bhavani La[address] CT ABD/PELV W CONon 03-29-[address] ABD/PELV W CON Normal [facility] POINT OF CARE GLUCOSEon 03-18 Glucose [Mass/Vol] 102 mg/dL Normal 74-106 [facility] Comment on above: Performed By: #### P OCGLUC ####[facility] Fuuzfowxet118[address] [place], [place] [address]Dr. Bhavani Laurel Glucose [Mass/Vol] 100 mg/dL Normal 74-106 [facility] Comment on above: Performed By: #### P OCGLUC ####[facility] Hmjwgyihwx4941 [place] [address]Dr. Bhavani Laurel Glucose [Mass/Vol] 132 mg/dL Critically high 74-106 [facility] Comment on above: Performed By: #### P OCGLUC ####[facility] Xnseqdvuxt[address] [place], [place] [address]Dr. Bhavani Laurel Glucose [Mass/Vol] 130 mg/dL Critically high 74-106 [facility] Comment on above: Performed By: #### P OCGLUC ####[facility] Fyrsaxuqcb686[address] [place], [place] [address]Dr. Bhavani Laurel PROF 14(COMP METB)on 022 Albumin [Mass/Vol] 2.1 g/dL Critically low 3.4-5.0 [facility] Comment on above: Performed By: #### C MP ####[facility] Pzuroqzgmz5463 [place] [address]Dr. Bhavani Laurel Albumin/Globulin [Mass ratio] 0.6 {ratio} Normal [facility] Comment on above: Performed By: #### C MP ####[facility] Iyekftkmed3103 [place] [address]Dr. Bhavani Laurel ALP [Catalytic activity/Vol] 277 U/L Critically high 46-116 [facility] Comment on above: Performed By: #### C MP ####[facility] Ftzruxnloi4232 [place] [address]Dr. Jayceeroxi Laurel ALT [Catalytic activity/Vol] 90 U/L Critically high 14-59 [facility] Comment on above: Performed By: #### C MP ####[facility] Lwdjqzybkf8[address] [place], [place] [address]Dr. Bhavani Camargo Anion gap [Moles/Vol] 13.1 mmol/L Normal [facility] Comment on above: Performed By: #### C MP ####[facility] Rwoydybzfh[address] [place], [place] [address]Dr. Bhavani Camargo AST [Catalytic activity/Vol] 56 U/L Critically high 15-37 [facility] Comment on above: Performed By: #### C MP ####[facility] Ceiejnssha74[address] [place], [place] [address]Dr. Bhavani Camargo Bilirubin [Mass/Vol] 4.1 mg/dL Critically high 0.2-1.0 [facility] Comment on above: Performed By: #### C MP ####[facility] Ndlydpyvsn[address] [place], [place] [address]Dr. Bhavani Camargo Calcium [Mass/Vol] 7.9 mg/dL Critically low 8.5-10.1 Th [facility] Comment on above: Performed By: #### C MP ####[facility] Lnqvrqdezz98[address] [place], [place] [address]Dr. Bhavani Camargo Chloride [Moles/Vol] 103 mmol/L Normal 98-107 [facility] Comment on above: Performed By: #### C MP ####[facility] Tamexoqtgx[address] [place], [place] [address]Dr. Bhavani Camargo CO2 [Moles/Vol] 25.9 mmol/L Normal 21.0-32.0 [facility] Comment on above: Performed By: #### C MP ####[facility] Bxewuuqxtz[address] [place], [place] [address]Dr. Bhavani Camargo Creatinine [Mass/Vol] 1.32 mg/dL Critically high 0.55-1.02 [facility] Comment on above: Performed By: #### C MP ####[facility] Sbsuabfljh7108 [place] [address]Dr. Bhavani Camargo EGFR-AF MALAYSIAN 47 mL/min/1.73m2 Critically low >=60 [facility] Comment on above: Performed By: #### C MP ####[facility] Zsxobhsrwh3406 [place] [address]Dr. Bhavani Laurel EGFR-NON AF MALAYSIAN 39 mL/min/1.73m2 Critically low >=60 [facility] Comment on above: Performed By: #### C MP ####[facility] Dbohxxziee0284 [place] [address]Dr. Bhavani Camargo Globulin (S) [Mass/Vol] 3.7 g/dL Normal [facility] Comment on above: Performed By: #### C MP ####[facility] Kqvkxblulh7209 [place] [address]Dr. Bhavani Camargo Glucose [Mass/Vol] 133 mg/dL Critically high 74-106 [facility] Comment on above: Performed By: #### C MP ####[facility] Rejxyziatn1627 [place] [address]Dr. Bhavani Camargo Potassium [Moles/Vol] 4.0 mmol/L Normal 3.5-5.1 [facility] Comment on above: Performed By: #### C MP ####[facility] Oyjvxubakq9263 [place] [address]Dr. Bhavani Camargo Protein [Mass/Vol] 5.8 g/dL Critically low 6.4-8.2 Th [facility] Comment on above: Performed By: #### C MP ####[facility] Vpybsqzile3942 [place] [address]Dr. Bhavani Camargo Sodium [Moles/Vol] 138 mmol/L Normal 136-145 [facility] Comment on above: Performed By: #### C MP ####[facility] Kcfnoxcord[address] [place], [place] [address]Dr. Bhavani Camargo Urea nitrogen [Mass/Vol] 19.0 mg/dL Critically high 7.0-18.0 [facility] Comment on above: Performed By: #### C MP ####[facility] [address] [place] [address]. Bhavani Camargo Urea nitrogen/Creatinine [Mass ratio] 14.4 mg/mg Normal [facility] Comment on above: Performed By: #### C MP ####[facility] Hverexvour[address] [place], [place] [address]Dr. Bhavani Camargo PROTIMEon 03-29-2022 INR Coag (PPP) [Relative time] 1.33 {INR} Normal [facility] Comment on above: Performed By: #### P T, PTT ####[facility] F[address] [place] [address]. Bhavani Camargo INR GUIDELINES SEE BELOW Normal [facility] Comment on above: Result Comment: WALKER RED INR: 2.0 - 3.0 CONDITIONS NOT LISTED BELOW 2.5 - 3.5 FOR PROSTHETIC HEART VALVE REPLACEMENT 2.5 - 3.5 RECURRENT THROMBOSIS Performed By: #### P T, PTT ####[facility] Qtpolmbnwh[address] [place] [address]. Bhavani Camargo PT Coag (PPP) [Time] 14.1 s Critically high 9.0-11.6 [facility] Comment on above: Performed By: #### P T, PTT ####[facility] R[address]qim[address] [place] [address]. Bhavani Camargo PTTon 03-29-2022 aPTT Coag (Bld) [Time] 36.0 s Normal 22.3-36.2 [facility] Comment on above: Performed By: #### P T, PTT ####[facility] Dozicslrsx[address] [place] [address]. Bhavani Camargo AMMONIAon 03-28-2022 Ammonia (P) [Moles/Vol] 22 umol/L Normal 11-32 [facility] Comment on above: Performed By: #### A MM ####[facility] Pzual[address]st[address] [place] [address]. Jayceeroxi Camargo CBC W MANUAL DIFFon 03-28-20 22 ANISOCYTOSIS 2+ Normal [facility] Comment on above: Performed By: #### C BCMAN ####[facility] Fktqmaegqg[address] [place] [address]Dr. Bhavani Camargo ATYPICAL LYMPH # Normal [facility] Comment on above: Performed By: #### C BCJERSON ####[facility] Ugvegqsziu16[address] [place] [address]Dr. Bhavani Camargo ATYPICAL LYMPH % Normal [facility] Comment on above: Performed By: #### C BCJERSON ####[facility] Ljztvdmdtc[address] [place], [place] [address]Dr. Bhavani Camargo BAND # 0.8 103/ul Critically high 0.0-0.3 [facility] Comment on above: Performed By: #### C BCJERSON ####[facility] Dvieqcvlnb[address] [place], [place] [address]Dr. Bhavani Camargo BAND % 3 % Normal 0-5 [facility] Comment on above: Performed By: #### C OMID ####[facility] Pxtqqppxui7[address] [place], [place] [address]Dr. Bhavani Laurel BASOM # 0.00 103/ul Normal 0.00-0.10 [facility] Comment on above: Performed By: #### C OMID ####[facility] Dpigbfnxqj[address] [place], [place] [address]Dr. Bhavani Camargo BASOM % 0.0 % Critically low 0.2-2.0 [facility] Comment on above: Performed By: #### C OMID ####[facility] Vgmxuywzny[address] [place], [place] [address]Dr. Bhavani Camargo BLAST # Normal [facility] Comment on above: Performed By: #### C BCJERSON ####[facility] Wkxgzyqlat01[address] [place], [place] [address]Dr. Bhavani Camargo BLAST % Normal [facility] Comment on above: Performed By: #### C OMID ####[facility] Wgmrhfrnnp17[address] [place], [place] [address]DrLydia Camargo CORRECTED WBC Normal 4.0-11.0 [facility] Comment on above: Performed By: #### C OMID ####[facility] Lncbtuqwfa9231 [place] [phone] Camargo EOS # 0.00 103/ul Normal 0.00-0.70 [facility] Comment on above: Performed By: #### C OMID ####[facility] Rtfumivzry4530 [place] [phone]. Bhavani Camargo EOS% 0.0 % Critically low 0.9-7.0 [facility] Comment on above: Performed By: #### C OMID ####[facility] Rbytmaqfsy7425 [place] [phone]. Bhavani Camargo HCT 38.9 % Normal 36.0-48.0 [facility] Comment on above: Performed By: #### C OMID ####[facility] Iieyhaztry4384 [place] [phone]. Bhavani Camargo HGB 11.9 g/dl Critically low 12.0-16.0 [facility] Comment on above: Performed By: #### C OMID ####[facility] Cdtagjnhbn1649 [place] [phone]. Bhavani Camargo LYMPHM # 0.78 103/ul Critically low 1.20-3.80 [facility] Comment on above: Performed By: #### C OMID ####[facility] Sfbwxmycfy3684 [place] [phone]. Bhavani Camargo LYMPHM% 3.0 % Critically low 20.5-60.0 [facility] Comment on above: Performed By: #### C OMID ####[facility] Kzkartwhpw0442 [place] [phone] Camargo MCH 29.8 pg Normal 26.7-34.0 [facility] Comment on above: Performed By: #### C OMID ####[facility] Syadzcmksk4300 [place] [phone] Camargo MCHC 30.6 g/dl Normal 29.9-35.2 [facility] Comment on above: Performed By: #### C OMID ####[facility] Jtoldvexql6843 [place] [phone]. Bhavani Camargo MCV 97.3 fL Normal 81.0-99.0 [facility] Comment on above: Performed By: #### C OMID ####[facility] Gjpceynaed2494 [place] [phone]. Bhavani Camargo METAMYELOCYTE # Normal [facility] Comment on above: Performed By: #### C OMID ####[facility] Imbzehhspd3244 [place] [phone]. Bhavani Camargo METAMYELOCYTE % Normal [facility] Comment on above: Performed By: #### C OMID ####[facility] Phugehihrv[address] [place], [place] [address]Dr. Bhavani Camargo MONOM# 0.78 103/ul Normal 0.30-0.80 [facility] Comment on above: Performed By: #### C OMID ####[facility] Zkzckedjve[address] [place], [place] [address]Dr. Bhavani Camargo MONOM% 3.0 % Normal 1.7-12.0 [facility] Comment on above: Performed By: #### C OMID ####[facility] Gipocrsany0318 [place] [phone]. Bhavani Camargo MPV 10.6 fL Normal 9.5-13.5 [facility] Comment on above: Performed By: #### C OMID ####[facility] Bvuhicwqop4008 [place] [phone]. Bhavani Camargo MYELOCYTE # Normal [facility] Comment on above: Performed By: #### C OMID ####[facility] Lstbphwaxq2896 [place] [phone]. Bhavani Camargo MYELOCYTE % Normal [facility] Comment on above: Performed By: #### C OMID ####[facility] Lhvylxvnuj[address] [place], [place] [address]Dr. Bhavani Camargo NRBC Normal [facility] Comment on above: Performed By: #### C OMID ####[facility] Eejoenbntq8568 [place], [place] [address]Ht. Bhavani Camargo PLT 402 103/ul Normal 150-450 [facility] Comment on above: Performed By: #### C OMID ####[facility] Pvhpkxtgfo9599 [place], [place] [address]Lk. Bhavani Camargo RBC 4.00 106/ul Critically low 4.20-5.40 [facility] Comment on above: Performed By: #### C OMID ####[facility] Zhwpsfnreu6487 [place], [place] [address]Ml. Bhavani Camargo RDW 16.7 % Critically high 11.0-15.0 [facility] Comment on above: Performed By: #### C OMID ####[facility] Ymhxaoiyhj7484 [place], [place] [address]Ms. Bhavani Camargo SEG # 23.66 103/ul Critically high 1.40-6.50 [facility] Comment on above: Performed By: #### C OMID ####[facility] Bybujlgvbc7571 [place], [place] [address]Zm. Bhavani Camargo SEG % 91.0 % Critically high 43.0-75.0 [facility] Comment on above: Performed By: #### C OMID ####[facility] Qetunfpaep5126 [place], [place] [address]Kk. Bhavani Camargo WBC 26.0 103/ul Critically high 4.0-11.0 [facility] Comment on above: Performed By: #### C OMID ####[facility] Mtjebhbgjm5615 [place], [place] [address]Wf. Jayceeroxi Camargo PROF 14(COMP METB)on 022 Albumin [Mass/Vol] 2.1 g/dL Critically low 3.4-5.0 [facility] Comment on above: Performed By: #### C ALISTAIR ####[facility] Faevxollow4936 [place], [place] [address]Ud. Bhavani Camargo Albumin/Globulin [Mass ratio] 0.6 {ratio} Normal [facility] Comment on above: Performed By: #### C MP ####[facility] Nqavljfizg7331 [place] [phone]. Bhavani Camargo ALP [Catalytic activity/Vol] 235 U/L Critically high 46-116 [facility] Comment on above: Performed By: #### C MP ####[facility] Unusfcyuru9992 [place] [phone]. Bhavani Camargo ALT [Catalytic activity/Vol] 112 U/L Critically high 14-59 [facility] Comment on above: Performed By: #### C MP ####[facility] Xmtgwrpkzu3348 [place] [phone]. Bhavani Camargo Anion gap [Moles/Vol] 12.3 mmol/L Normal [facility] Comment on above: Performed By: #### C MP ####[facility] Bnpkhzxkru7904 [place] [address]Dr. Bhavani Camargo AST [Catalytic activity/Vol] 57 U/L Critically high 15-37 [facility] Comment on above: Performed By: #### C MP ####[facility] Bxzfxxyrhn4280 [place] [address]Dr. Bhavani Camargo Bilirubin [Mass/Vol] 1.6 mg/dL Critically high 0.2-1.0 [facility] Comment on above: Performed By: #### C MP ####[facility] Uarrandlig4921 [place] [address]Dr. Bhavani Camargo Calcium [Mass/Vol] 7.6 mg/dL Critically low 8.5-10.1 [facility] Comment on above: Performed By: #### C MP ####[facility] Atkbbeqhdk4192 [place] [address]Dr. Bhavani Camargo Chloride [Moles/Vol] 104 mmol/L Normal 98-107 [facility] Comment on above: Performed By: #### C MP ####[facility] Dylbuyizsy86[address] [place], [place] [address]Dr. Bhavani Camargo CO2 [Moles/Vol] 25.5 mmol/L Normal 21.0-32.0 [facility] Comment on above: Performed By: #### C MP ####[facility] Cuhcqpqota8069 [place] [phone]. Bhavani Camargo Creatinine [Mass/Vol] 1.28 mg/dL Critically high 0.55-1.02 [facility] Comment on above: Performed By: #### C MP ####[facility] Spzslkwwpo2061 [place] [phone]. Bhavani Camargo EGFR-AF MALAYSIAN 48 mL/min/1.73m2 Critically low >=60 [facility] Comment on above: Performed By: #### C MP ####[facility] Hivyybiysi0471 [place] [phone]. Bhavani Camargo EGFR-NON AF MALAYSIAN 40 mL/min/1.73m2 Critically low >=60 [facility] Comment on above: Performed By: #### C MP ####[facility] Fqjjgpvklc2466 [place] [address]Dr. Bhavani Camargo Globulin (S) [Mass/Vol] 3.7 g/dL Normal [facility] Comment on above: Performed By: #### C MP ####[facility] Zjweipqrja4241 [place] [phone]. Bhavani Camargo Glucose [Mass/Vol] 69 mg/dL Critically low 74-106 [facility] Comment on above: Performed By: #### C MP ####[facility] Adkixdgenu2622 [place] [phone]. Bhavani Camargo Potassium [Moles/Vol] 3.8 mmol/L Normal 3.5-5.1 [facility] Comment on above: Performed By: #### C MP ####[facility] Dzjezpcjnn5203 [place] [phone]. Bhavani Camargo Protein [Mass/Vol] 5.8 g/dL Critically low 6.4-8.2 [facility] Comment on above: Performed By: #### C MP ####[facility] Adxtkntove2373 [place] [phone]. Bhavani Camargo Sodium [Moles/Vol] 138 mmol/L Normal 136-145 [facility] Comment on above: Performed By: #### C MP ####[facility] Dwxxsstcqp7105 [place] [address]Dr. Bhavani Camargo Urea nitrogen [Mass/Vol] 18.0 mg/dL Normal 7.0-18.0 [facility] Comment on above: Performed By: #### C MP ####[facility] Fzvzjfkemq4314 [place] [address]Dr. Bhavani Camargo Urea nitrogen/Creatinine [Mass ratio] 14.1 mg/mg Normal [facility] Comment on above: Performed By: #### C MP ####[facility] Ktcnvzvbek3351 [place] [address]Dr. Bhavani Camargo PROTIMEon 03-28-2022 INR Coag (PPP) [Relative time] 1.38 {INR} Normal [facility] Comment on above: Performed By: #### P T, PTT ####[facility] Jvxpamjrxf[address] [place], [place] [address]Dr. Bhavani Camargo INR GUIDELINES SEE BELOW Normal [facility] Comment on above: Result Comment: WALKER RED INR: 2.0 - 3.0 CONDITIONS NOT LISTED BELOW 2.5 - 3.5 FOR PROSTHETIC HEART VALVE REPLACEMENT 2.5 - 3.5 RECURRENT THROMBOSIS Performed By: #### P T, PTT ####[facility] Tycoucshrn63[address] [place], [place] [address]Dr. Bhavani Camargo PT Coag (PPP) [Time] 14.6 s Critically high 9.0-11.6 [facility] Comment on above: Performed By: #### P T, PTT ####[facility] Lrvbvsyzop[address] [place], [place] [address]Dr. Bhavani Camargo PTTon 03-28-2022 aPTT Coag (Bld) [Time] 36.6 s Critically high 22.3-36.2 [facility] Comment on above: Performed By: #### P T, PTT ####[facility] Ggvbahphre[address] [place], [place] [address]Dr. Bhavani Camargo RESPIRATORY PANEL PLUSon Adenovirus Not detected Normal NOT DETECTED [facility] Comment on above: Performed By: #### R SPLUS ####[facility] Jnlylwyqon0740 [place] [address]Dr. Bhavani Camargo B. Parapertusis Not detected Normal NOT DETECTED [facility] Comment on above: Performed By: #### R SPLUS ####[facility] Bnbtkrbvut6602 [place] [address]Dr. Bhavani Camargo B. Pertussis Not detected Normal NOT DETECTED [facility] Comment on above: Performed By: #### R SPLUS ####[facility] Zsmzmigdli[address] [place], [place] [address]Dr. Bhavani Camargo Chlamydia Pneumoniae Not detected Normal NOT DETECTED [facility] Comment on above: Performed By: #### R SPLUS ####[facility] Zodklvwntf[address] [place], [place] [address]Dr. Bhavani Camargo Coronavirus 229E Not detected Normal NOT DETECTED [facility] Comment on above: Performed By: #### R SPLUS ####[facility] Ekbukhiuxr9[address] [place], [place] [address]Dr. roxi Camargo Coronavirus HKU1 Not detected Normal NOT DETECTED [facility] Comment on above: Performed By: #### R SPLUS ####[facility] Yyrxxdtwje0725[address] [place], [place] [address]Dr. Bhavani Camargo Coronavirus NL63 Not detected Normal NOT DETECTED [facility] Comment on above: Performed By: #### R SPLUS ####[facility] Osuyidcvcf007[address] [place], [place] [address]Dr. Bhavani Camargo Coronavirus OC43 Not detected Normal NOT DETECTED [facility] Comment on above: Performed By: #### R SPLUS ####[facility] Ueyugobpjk[address] [place], [place] [address]Dr. Bhavani Camargo Influenza A H1 2009 Not detected Normal NOT DETECTED [facility] Comment on above: Performed By: #### R SPLUS ####[facility] Nypudqccle[address] [place], [place] [address]Dr. Jayceeroxi Camargo Influenza A H3 Not detected Normal NOT DETECTED [facility] Comment on above: Performed By: #### R SPLUS ####[facility] Wixnfzqfjw2896 [place] [address]Dr. Bhavani Camargo Influenza B Not detected Normal NOT DETECTED [facility] Comment on above: Performed By: #### R SPLUS ####[facility] Ywfqitduli1210[address] [place], [place] [address]Dr. Bhavani Camargo Metapneumovirus Not detected Normal NOT DETECTED [facility] Comment on above: Performed By: #### R SPLUS ####[facility] Gbavabgyhw8587[address] [place], [place] [address]Dr. Bhavani Camargo Mycoplas. Pneumoniae Not detected Normal NOT DETECTED [facility] Comment on above: Performed By: #### R SPLUS ####[facility] Pcitywqzds082[address] [place], [place] [address]Dr. Bhavani Camargo Parainfluenza 1 Not detected Normal NOT DETECTED [facility] Comment on above: Performed By: #### R SPLUS ####[facility] Qtctwihfan0028[address] [place], [place] [address]Dr. Bhavani Camargo Parainfluenza 2 Not detected Normal NOT DETECTED [facility] Comment on above: Performed By: #### R SPLUS ####[facility] Uxoidswjby310[address] [place], [place] [address]Dr. Bhavani Camargo Parainfluenza 3 Not detected Normal NOT DETECTED [facility] Comment on above: Performed By: #### R SPLUS ####[facility] Zbqccrminu224[address] [place], [place] [address]Dr. Bhavani Camargo Parainfluenza 4 Not detected Normal NOT DETECTED [facility] Comment on above: Performed By: #### R SPLUS ####[facility] Nschzyedwr6922[address] [place], [place] [address]Dr. Bhavani Camargo Rhino/Enterovirus Not detected Normal NOT DETECTED [facility] Comment on above: Performed By: #### R SPLUS ####[facility] Lqspwwlqdm01[address] [place], [place] [address]Dr. Bhavani Camargo RP2 Header 1 RESPIRATORY PANEL: VIRUSES Normal [facility] Comment on above: Performed By: #### R SPLUS ####[facility] Mrdyiauzoo418[address] [place], [place] [address]Dr. Bhavani Camargo RP2 Header 2 RESPIRATORY PANEL: BACTERIA Normal [facility] Comment on above: Performed By: #### R SPLUS ####[facility] Ihcelivwwr1787[address] [place], [place] [address]Dr. Bhavani Camargo RSV Not detected Normal NOT DETECTED [facility] Comment on above: Performed By: #### R SPLUS ####[facility] Qtourzjgpl728[address] [place], [place] [address]Dr. Bhavani Camargo SARS-CoV-2 (COVID-19) RNA MATTHEW+probe Ql (Unsp spec) Not detected Normal NOT DETECTED [facility] Comment on above: Performed By: #### R SPLUS ####[facility] Libjnqogku1975[address] [place], [place] [address]Dr. Bhavani Camargo AMMONIAon 03-27-2022 Ammonia (P) [Moles/Vol] 22 umol/L Normal 11-32 [facility] Comment on above: Performed By: #### A MM ####[facility] Pdfbnxglsj[address] [place], [place] [address]Dr. Bhavani Camargo BLOOD GASES BTYon 03-27-2022 02 MODE NASAL CANNULA Normal [facility] Comment on above: Performed By: #### A BG ####[facility] Tjcgcyreuh23[address] [place], [place] [address]Dr. Bhavani Camargo ALLENS TEST Positive Normal [facility] Comment on above: Performed By: #### A BG ####[facility] Nflnxeqqyy8265[address] [place], [place] [address]Dr. Bhavani Camargo Base excess Calc (Bld) [Moles/Vol] 1.4 mmol/L Normal -2.0-2.0 [facility] Comment on above: Performed By: #### A BG ####[facility] Odvwpnbxns8535[address] [place], [place] [address]Dr. Bhavani Camargo BIPAP PRESSURE Normal [facility] Comment on above: Performed By: #### A BG ####[facility] Ecomfdazks6225[address] [place], [place] [address]Dr. Bhavani Camargo CO2 [Moles/Vol] 50.8 mmol/L Critically high 23.0-28.0 [facility] Comment on above: Performed By: #### A BG ####[facility] Lopnkceqjz6026 [place] [address]Dr. Bhavani Camargo CPAP Normal [facility] Comment on above: Performed By: #### A BG ####[facility] Nictpuhvns6019 [place] [address]Dr. Bhavani Camargo FIO2 Normal [facility] Comment on above: Performed By: #### A BG ####[facility] Fqkrehhtji[address] [place], [place] [address]Dr. Bhavani Camargo HCO3 (Bld) [Moles/Vol] 25.6 mmol/L Normal 22.0-26.0 [facility] Comment on above: Performed By: #### A BG ####[facility] Lmpxzvdsrx29[address] [place], [place] [address]Dr. Bhavani Camargo LPM 5 Normal [facility] Comment on above: Performed By: #### A BG ####[facility] Ygcyzfqstj9[address] [place], [place] [address]Dr. Bhavani Camargo MINUTE VOLUME Normal [facility] Comment on above: Performed By: #### A BG ####[facility] Hevlnyhbxd69[address] [place], [place] [address]Dr. Bhavani Camargo Oxygen (Bld) [Partial pressure] 56.6 mm[Hg] Critically low 80.0-100.0 [facility] Comment on above: Performed By: #### A BG ####[facility] Bpzujpulqo8[address] [place], [place] [address]Dr. Bhavani Camargo Oxygen saturation in Blood 91.3 % Critically low 95.0-100.0 [facility] Comment on above: Performed By: #### A BG ####[facility] Jlaplqbyhk12[address] [place], [place] [address]Dr. Bhavani Camargo PCO2 36.1 mmHg Normal 35.0-45.0 [facility] Comment on above: Performed By: #### A BG ####[facility] Qnvxbxkwwi177[address] [place], [place] [address]Dr. Bhavani Camargo PEEP Normal [facility] Comment on above: Performed By: #### A BG ####[facility] Dlvwdxrmoq0182 [place] [address]Dr. Bhavani Camargo pH (Bld) 7.454 [pH] Critically high 7.350-7.450 [facility] Comment on above: Performed By: #### A BG ####[facility] Jahqmvshwo6445 [place] [address]Dr. Bhavani Camargo PIP [facility] Comment on above: Performed By: #### A BG ####[facility] Avhimioefm8709 [place] [address]Dr. Bhavani Camargo PS [facility] Comment on above: Performed By: #### A BG ####[facility] Qfsvxpbwoe25[address] [place], [place] [address]Dr. Bhavani Camargo PUNCTURE SITE LR Normal [facility] Comment on above: Performed By: #### A BG ####[facility] Kfthvmwfpb014[address] [place], [place] [address]Dr. Bhavani Camargo RATE [facility] Comment on above: Performed By: #### A BG ####[facility] Hmlwvigmix23[address] [place], [place] [address]Dr. Bhavani Camargo VENT MODE [facility] Comment on above: Performed By: #### A BG ####[facility] Ywjxrkwvgp5219 [place] [address]Dr. Bhavani Camargo VT [facility] Comment on above: Performed By: #### A BG ####[facility] Leduakervs5123 [place] [address]Dr. Bhavani Camargo CBC W MANUAL DIFFon 03-27-20 22 ANISOCYTOSIS 2+ [facility] Comment on above: Performed By: #### C BCMAN ####[facility] Qpwymggxjx9491 [place] [address]Dr. Bhavani Camargo ATYPICAL LYMPH # Normal [facility] Comment on above: Performed By: #### C BCMAN ####[facility] Pjdgalvstp65[address] [place], [place] [address]Dr. Bhavani Camargo ATYPICAL LYMPH % Normal [facility] Comment on above: Performed By: #### C BCMAN ####[facility] Nzzkssnwdk4124 [place] [phone]. Bhavani Camargo BAND # 1.5 103/ul Critically high 0.0-0.3 [facility] Comment on above: Performed By: #### C BCMAN ####[facility] Pxnmmrynyf4983 [place] [phone]. Yilan Camargo BAND % 5 % Normal 0-5 [facility] Comment on above: Performed By: #### C BCMAN ####[facility] Wbwabbrhks7155 [place] [phone]. Bhavani Camargo BASOM # 0.00 103/ul Normal 0.00-0.10 [facility] Comment on above: Performed By: #### C BCMAN ####[facility] Ysosairjzh0994 [place] [address]Dr. Bhavani Camargo BASOM % 0.0 % Critically low 0.2-2.0 [facility] Comment on above: Performed By: #### C BCMAN ####[facility] Gaihsogpuy0500 [place] [address]Dr. Bhavani Camargo BLAST # Normal [facility] Comment on above: Performed By: #### C BCMAN ####[facility] Ustdqcpxtt2393 [place] [phone]. Bhavani Camargo BLAST % Normal [facility] Comment on above: Performed By: #### C BCMAN ####[facility] Xmjwemezbr5154 [place] [phone]. Bhavani Camargo CORRECTED WBC Normal 4.0-11.0 [facility] Comment on above: Performed By: #### C BCMAN ####[facility] Feqysgqhrb5272 [place] [phone]. Bhavani Camargo EOS # 0.00 103/ul Normal 0.00-0.70 [facility] Comment on above: Performed By: #### C BCMAN ####[facility] Zmkitrfsis3091 [place] [phone]. Bhavani Camargo EOS% 0.0 % Critically low 0.9-7.0 [facility] Comment on above: Performed By: #### C OMID ####[facility] Ipyegmmdwa5627 [place] [phone]. Bhavani Camargo HCT 41.4 % Normal 36.0-48.0 [facility] Comment on above: Performed By: #### C OMID ####[facility] Amcayehkiw2709 [place] [phone]. Bhavani Camargo HGB 13.0 g/dl Normal 12.0-16.0 [facility] Comment on above: Performed By: #### Jany ANNE ####[facility] Nggwfdmdhd1150 [place] [address]Dr. Bhavani Camargo LYMPHM # 0.60 103/ul Critically low 1.20-3.80 [facility] [facility] Comment on above: Performed By: #### Jany ANNE ####[facility] Tlxdufwdhw40[address] [place] [address]Dr. Bhavani Camargo LYMPHM% 2.0 % Critically low 20.5-60.0 [facility] Comment on above: Performed By: #### Jany ANNE ####[facility] Insydfgduk[address] [place] [address]Dr. Bhavani Camargo MCH 30.1 pg Normal 26.7-34.0 [facility] Comment on above: Performed By: #### Jany ANNE ####[facility] Tcvvtduydu9574 [place] [address]Dr. Bhavani Camargo MCHC 31.4 g/dl Normal 29.9-35.2 [facility] Comment on above: Performed By: #### Jany ANNE ####[facility] Rhiujxfvit4[address] [place] [address]Dr. Bhavani Camargo MCV 95.8 fL Normal 81.0-99.0 [facility] Comment on above: Performed By: #### Jany ANNE ####[facility] Iezsxoougt6492 [place] [address]Dr. Bhavani Camargo METAMYELOCYTE # Normal [facility] Comment on above: Performed By: #### C OMID ####[facility] Ywetyafkvs1761 [place], [place] [address]Wh. Bhavani Camargo METAMYELOCYTE % Normal [facility] Comment on above: Performed By: #### C OMID ####[facility] Qaxmyyrfjy7546 [place], [place] [address]Ok. Bhavani Camargo MONOM# 0.91 103/ul Critically high 0.30-0.80 [facility] Comment on above: Performed By: #### C OMID ####[facility] Bwndyqdesf37[address] [place] [phone]. Bhavani Camargo MONOM% 3.0 % Normal 1.7-12.0 [facility] Comment on above: Performed By: #### C OMID ####[facility] Ptgqbzxwuf8039 [place] [phone]. Bhavani Camargo MPV 10.4 fL Normal 9.5-13.5 [facility] Comment on above: Performed By: #### C OMID ####[facility] Uvohschkyi4055 [place] [phone]. Bhavani Camargo MYELOCYTE # Normal [facility] Comment on above: Performed By: #### C OMID ####[facility] Xudpdfqzvq5972 [place] [phone]. Bhavani Camargo MYELOCYTE % Normal [facility] Comment on above: Performed By: #### C OMID ####[facility] Csepspjkug3418 [place] [phone]. Bhavani Camargo NRBC Normal [facility] Comment on above: Performed By: #### C OMID ####[facility] Fbpuhetyjq8612 [place] [phone]. Bhavani Camargo PLT 431 103/ul Normal 150-450 [facility] Comment on above: Performed By: #### C OMID ####[facility] Myhvmnertg4930 [place] [phone]. Bhavani Camargo RBC 4.32 106/ul Normal 4.20-5.40 [facility] Comment on above: Performed By: #### C ALICIAJERSON ####[facility] Ceubrsbteu7122 [place] [phone]. Jayceeroxi Laurel RDW 16.4 % Critically high 11.0-15.0 [facility] Comment on above: Performed By: #### C BCMAN ####[facility] Hoxgbfnoxj8124 [place] [phone]. Bhavani Camargo SEG # 27.18 103/ul Critically high 1.40-6.50 [facility] Comment on above: Performed By: #### C BCMAN ####[facility] Cfkpfyqqha9891 [place] [phone]. Bhavani Camargo SEG % 90.0 % Critically high 43.0-75.0 [facility] Comment on above: Performed By: #### C BCJERSON ####[facility] Cxvvmudqsk8287 [place] [address]Dr. Bhavani Camargo WBC 30.2 103/ul Critically high 4.0-11.0 [facility] Comment on above: Performed By: #### C BCMAN ####[facility] Ocwuwhlnls3618 [place] [address]Dr. Bhavani Camargo CTA CHEST WO W CONon 022 CTA CHEST WO W CON Normal [facility] POINT OF CARE GLUCOSEon 03-18 0-2021 Glucose [Mass/Vol] 94 mg/dL Normal 74-106 [facility] Comment on above: Performed By: #### P OCGLUC ####[facility] Athiqyqpst3434 [place] [address]Dr. Bhavani Camargo Glucose [Mass/Vol] 131 mg/dL Critically high 74-106 [facility] Comment on above: Performed By: #### P OCGLUC ####[facility] Hesqxhjmst8650 [place] [address]Dr. Bhavani Camargo Glucose [Mass/Vol] 134 mg/dL Critically high 74-106 [facility] Comment on above: Performed By: #### P OCGLUC ####[facility] Xbpfekttur9662 [place] [address]Dr. Bhavani Camargo PROF 14(COMP METB)on 022 Albumin [Mass/Vol] 2.4 g/dL Critically low 3.4-5.0 [facility] Comment on above: Performed By: #### C MP ####[facility] Yatailitgc7127 [place] [address]Dr. Bhavani Camargo Albumin/Globulin [Mass ratio] 0.6 {ratio} Normal [facility] Comment on above: Performed By: #### C MP ####[facility] Uaelrmlvlj9829 [place] [address]Dr. Bhavani Camargo ALP [Catalytic activity/Vol] 306 U/L Critically high 46-116 [facility] Comment on above: Performed By: #### C MP ####[facility] Wxcugdebkj[address] [place], [place] [address]Dr. Bhavani Camargo ALT [Catalytic activity/Vol] 152 U/L Critically high 14-59 [facility] Comment on above: Performed By: #### C MP ####[facility] Lrbgxazufg[address] [place], [place] [address]Dr. Bhavani Camargo Anion gap [Moles/Vol] 8.1 mmol/L Normal [facility] Comment on above: Performed By: #### C MP ####[facility] Tmojevkljq[address] [place], [place] [address]Dr. Bhavani Camargo AST [Catalytic activity/Vol] 98 U/L Critically high 15-37 [facility] Comment on above: Performed By: #### C MP ####[facility] Ehwwsumytd0213[address] [place], [place] [address]Dr. Bhavani Camargo Bilirubin [Mass/Vol] 2.7 mg/dL Critically high 0.2-1.0 [facility] Comment on above: Performed By: #### C MP ####[facility] Gpogdlztho9[address] [place], [place] [address]Dr. Bhavani Camargo Calcium [Mass/Vol] 7.4 mg/dL Critically low 8.5-10.1 [facility] Comment on above: Performed By: #### C MP ####[facility] Yyjpkmiflc[address] [place], [place] [address]Dr. Bhavani Camargo Chloride [Moles/Vol] 103 mmol/L Normal 98-107 [facility] Comment on above: Performed By: #### C MP ####[facility] Bpcuvsghis1411 [place] [address]Dr. Bhavani Laurel CO2 [Moles/Vol] 24.7 mmol/L Normal 21.0-32.0 [facility] Comment on above: Performed By: #### C MP ####[facility] Wwnhgpfjoe258[address] [place], [place] [address]Dr. Bhavani Camargo Creatinine [Mass/Vol] 1.07 mg/dL Critically high 0.55-1.02 [facility] Comment on above: Performed By: #### C MP ####[facility] Vufylluaud110[address] [place], [place] [address]Dr. Bhavani Camargo EGFR-AF MALAYSIAN 60 mL/min/1.73m2 Normal >=60 [facility] Comment on above: Performed By: #### C MP ####[facility] Vwicfmufhv814[address] [place], [place] [address]Dr. Bhavani Camargo EGFR-NON AF MALAYSIAN 49 mL/min/1.73m2 Critically low >=60 [facility] Comment on above: Performed By: #### C MP ####[facility] Iaileqkrao55[address] [place], [place] [address]Dr. Bhavani Camargo Globulin (S) [Mass/Vol] 3.8 g/dL Normal [facility] Comment on above: Performed By: #### C MP ####[facility] Imnmhbvyxs8544[address] [place], [place] [address]Dr. Bhavani Camargo Glucose [Mass/Vol] 140 mg/dL Critically high 74-106 [facility] Comment on above: Performed By: #### C MP ####[facility] Reqrkuisok4640[address] [place], [place] [address]Dr. Bhavani Camargo Potassium [Moles/Vol] 3.8 mmol/L Normal 3.5-5.1 [facility] Comment on above: Performed By: #### C MP ####[facility] Iftykyvvvz760[address] [place], [place] [address]Dr. Bhavani Camargo Protein [Mass/Vol] 6.2 g/dL Critically low 6.4-8.2 [facility] Comment on above: Performed By: #### C MP ####[facility] Cxaxoapuhd95[address] [place], [place] [address]Dr. Bhavani Camargo Sodium [Moles/Vol] 132 mmol/L Critically low 136-145 [facility] Comment on above: Performed By: #### C MP ####[facility] Phlvochpae[address] [place], [place] [address]Dr. Bhavani Camargo Urea nitrogen [Mass/Vol] 15.0 mg/dL Normal 7.0-18.0 [facility] Comment on above: Performed By: #### C MP ####[facility] Safjgacqbm285[address] [place], [place] [address]Dr. Bhavani Camargo Urea nitrogen/Creatinine [Mass ratio] 14.0 mg/mg Normal [facility] Comment on above: Performed By: #### C MP ####[facility] Umajkyxusv83[address] [place], [place] [address]Dr. Bhavani Camargo PROTIMEon 03-27-2022 INR Coag (PPP) [Relative time] 1.37 {INR} Normal [facility] Comment on above: Performed By: #### P T, PTT ####[facility] Pdaihmiwop[address] [place], [place] [address]Dr. Bhavani Camargo INR GUIDELINES SEE BELOW Normal [facility] Comment on above: Result Comment: WALKER RED INR: 2.0 - 3.0 CONDITIONS NOT LISTED BELOW 2.5 - 3.5 FOR PROSTHETIC HEART VALVE REPLACEMENT 2.5 - 3.5 RECURRENT THROMBOSIS Performed By: #### P T, PTT ####[facility] Yqppbfupzq[address] [place], [place] [address]Dr. Bhavani Camargo PT Coag (PPP) [Time] 14.5 s Critically high 9.0-11.6 [facility] Comment on above: Performed By: #### P T, PTT ####[facility] Ekivwuogre019[address] [place], [place] [address]Dr. Bhavani Camargo PTTon 03-27-2022 aPTT Coag (Bld) [Time] 34.2 s Normal 22.3-36.2 [facility] Comment on above: Performed By: #### P T, PTT ####[facility] Tndisimoqh98[address] [place], [place] [address]DrLydia Camargo XR ABD FLAT_UPon 03-27-2022 XR ABD FLAT_UP Normal [facility] XR CHEST 1 Von 03-27-2022 XR CHEST 1 V Normal [facility] AMMONIAon 03-26-2022 Ammonia (P) [Moles/Vol] 26 umol/L Normal 11-32 [facility] Comment on above: Performed By: #### A MM ####[facility] Yyjdcrleja69[address] [place], [place] [address]DrLydia Camargo CBC AUTO DIFFon 03-26-2022 BASO # 0.2 103/ul Critically high 0.0-0.1 [facility] Comment on above: Performed By: #### C BC ####[facility] Cydtjcvvqk45[address] [place], [place] [address]DrLydia Camargo Basophils/100 WBC (Bld) 0.8 % Normal 0.2-2.0 [facility] Comment on above: Performed By: #### C BC ####[facility] Pbpesostvr16[address] [place], [place] [address]DrLydia Camargo EO # 0.0 103/ul Normal 0.0-0.7 [facility] Comment on above: Performed By: #### C BC ####[facility] Fgtxetllxe8[address] [place], [place] [address]DrLydia Camargo Eosinophils/100 WBC (Bld) 0.1 % Critically low 0.9-7.0 [facility] Comment on above: Performed By: #### C BC ####[facility] Ervjshzmws268[address] [place], [place] [address]DrLydia Camargo Erythrocyte distribution width (RBC) [Ratio] 16.0 % Critically high 11.0-15.0 [facility] Comment on above: Performed By: #### C BC ####[facility] Jujslruuip[address] [place], [place] [address]DrLydia Camargo Hematocrit (Bld) [Volume fraction] 43.9 % Normal 36.0-48.0 [facility] Comment on above: Performed By: #### C BC ####[facility] Xhebmpcxmr7197 [place] [address]DrLydia Camargo Hemoglobin (Bld) [Mass/Vol] 13.6 g/dL Normal 12.0-16.0 [facility] Comment on above: Performed By: #### C BC ####[facility] Rgwfrffjxs[address] [place], [place] [address]DrLydia Camargo IG # 0.78 10e3/ul Critically high 0.00-0.03 [facility] Comment on above: Performed By: #### C BC ####[facility] Qfqljunmtq523[address] [place], [place] [address]DrLydia Camargo IG % 3.5 % Critically high 0.0-0.5 [facility] Comment on above: Performed By: #### C BC ####[facility] Appfteqouv7300[address] [place], [place] [address]DrLydia Camargo LYMPH # 0.9 103/ul Critically low 1.2-3.8 [facility] Comment on above: Performed By: #### C BC ####[facility] Fyxhlnnqqi2024 [place] [address]DrLydia Camargo Lymphocytes/100 WBC (Bld) 3.9 % Critically low 20.5-60.0 [facility] Comment on above: Performed By: #### C BC ####[facility] Dtiucyyoru3854 [place] [address]DrLydia Camargo MANUAL DIFF REQ NO Normal [facility] Comment on above: Performed By: #### C BC ####[facility] Ybmarfljxq[address] [place], [place] [address]DrLydia Camargo MCH (RBC) [Entitic mass] 30.0 pg Normal 26.7-34.0 [facility] Comment on above: Performed By: #### C BC ####[facility] Mpxydmzitl51[address] [place], [place] [address]DrLydia Camargo MCHC (RBC) [Mass/Vol] 31.0 g/dL Normal 29.9-35.2 [facility] Comment on above: Performed By: #### C BC ####[facility] Kvkjvdfhzf3174 [place] [phone]. Bhavani Laurel MCV (RBC) [Entitic vol] 96.9 fL Normal 81.0-99.0 [facility] Comment on above: Performed By: #### C BC ####[facility] Reucofncjr20[address] [place], [place] [address]DrLydia Camargo MONO # 0.6 103/ul Normal 0.3-0.8 [facility] Comment on above: Performed By: #### C BC ####[facility] Lapoxzterj15[address] [place], [place] [address]Dr. Bhavani Camargo Monocytes/100 WBC (Bld) 2.7 % Normal 1.7-12.0 [facility] Comment on above: Performed By: #### C BC ####[facility] Rewqbaxhri036[address] [place], [place] [address]Dr. Bhavani Camargo NEUT # 20.1 103/ul Critically high 1.4-6.5 [facility] Comment on above: Performed By: #### C BC ####[facility] Vbokvecduy[address] [place], [place] [address]Dr. Bhavani Camargo Neutrophils/100 WBC (Bld) 89.0 % Critically high 43.0-75.0 [facility] Comment on above: Performed By: #### C BC ####[facility] Lirxbwubxz[address] [place], [place] [address]Dr. Bhavani Camargo Platelet mean volume (Bld) [Entitic vol] 9.7 fL Normal 9.5-13.5 [facility] Comment on above: Performed By: #### C BC ####[facility] Ycnhycndrz[address] [place], [place] [address]Dr. Bhavani Camargo PLT 434 103/ul Normal 150-450 [facility] Comment on above: Performed By: #### C BC ####[facility] Mswzwbejqz5[address] [place], [place] [address]Dr. Bhavani Camargo RBC 4.53 106/ul Normal 4.20-5.40 [facility] Comment on above: Performed By: #### C BC ####[facility] Vyzptdchuc55[address] [place] [address]Dr. Jayceeroxi Laurel WBC 22.6 103/ul Critically high 4.0-11.0 [facility] Comment on above: Performed By: #### C BC ####[facility] Nwkyuwyedt7124 [place] [address]Dr. Bhavani Camargo ECHOCARDIO M/2D COMPLETEon 0 03-26-2022 ECHOCARDIO M/2D COMPLETE Normal [facility] POINT OF CARE GLUCOSEon Glucose [Mass/Vol] 166 mg/dL Critically high 74-106 [facility] Comment on above: Performed By: #### P OCGLUC ####[facility] Lclzeprnwa5304 [place] [address]Dr. Bhavani Camargo Glucose [Mass/Vol] 148 mg/dL Critically high 74-106 [facility] Comment on above: Performed By: #### P OCGLUC ####[facility] Uyvtbdhsxn0947 [place] [address]DrLydia Camargo PROF 14(COMP METB)on 022 Albumin [Mass/Vol] 2.4 g/dL Critically low 3.4-5.0 [facility] Comment on above: Performed By: #### C MP ####[facility] Qaorzcnkdf6234 [place] [address]DrLydia Camargo Albumin/Globulin [Mass ratio] 0.6 {ratio} Normal [facility] Comment on above: Performed By: #### C MP ####[facility] Dvgryfwdvk2271 [place] [address]DrLydia Camargo ALP [Catalytic activity/Vol] 310 U/L Critically high 46-116 [facility] Comment on above: Performed By: #### C MP ####[facility] Hluovjgphy1533 [place] [address]DrLydia Camargo ALT [Catalytic activity/Vol] 194 U/L Critically high 14-59 [facility] Comment on above: Performed By: #### C MP ####[facility] Mcxcepwpcd6513 [place] [phone]. Bhavani Camargo Anion gap [Moles/Vol] 8.2 mmol/L Normal [facility] Comment on above: Performed By: #### C MP ####[facility] Gkyolimfue3781 [place] [phone]. Bhavani Camargo AST [Catalytic activity/Vol] 133 U/L Critically high 15-37 [facility] Comment on above: Performed By: #### C MP ####[facility] Amtxbfqbnj1653 [place] [phone]. Bhavani Camargo Bilirubin [Mass/Vol] 2.8 mg/dL Critically high 0.2-1.0 [facility] Comment on above: Performed By: #### C MP ####[facility] Vkbwojfrrj2799 [place] [phone]. Bhavani Laurel Calcium [Mass/Vol] 7.7 mg/dL Critically low 8.5-10.1 [facility] Comment on above: Performed By: #### C MP ####[facility] Djxdclztoj3342 [place] [address]Dr. Bhavani Laurel Chloride [Moles/Vol] 105 mmol/L Normal 98-107 [facility] Comment on above: Performed By: #### C MP ####[facility] Tzrnjrened8327 [place] [phone]. Bhavani Laurel CO2 [Moles/Vol] 25.8 mmol/L Normal 21.0-32.0 [facility] Comment on above: Performed By: #### C MP ####[facility] Mwqvavjxfa0726 [place] [phone]. Bhavani Camargo Creatinine [Mass/Vol] 1.07 mg/dL Critically high 0.55-1.02 [facility] Comment on above: Performed By: #### C MP ####[facility] Zepgiaerrp7915 [place] [phone]. Bhavani Laurel EGFR-AF MALAYSIAN 60 mL/min/1.73m2 Normal >=60 [facility] Comment on above: Performed By: #### C MP ####[facility] Xveczjyzmi8472 [place] [phone]. Bhavani Camargo EGFR-NON AF MALAYSIAN 49 mL/min/1.73m2 Critically low >=60 [facility] Comment on above: Performed By: #### C MP ####[facility] Izfsovpbfx2563 [place] [phone]. Bhavani Camargo Globulin (S) [Mass/Vol] 3.8 g/dL Normal [facility] Comment on above: Performed By: #### C MP ####[facility] Jnrcjvmazt4697 [place] [phone]. Bhavani Camargo Glucose [Mass/Vol] 90 mg/dL Normal 74-106 [facility] Comment on above: Performed By: #### C MP ####[facility] Rbrskneekd9248 [place] [phone]. Bhavani Camargo Potassium [Moles/Vol] 4.0 mmol/L Normal 3.5-5.1 [facility] Comment on above: Performed By: #### C MP ####[facility] Elsrgofpnj7606 [place] [phone]. Bhavani Camargo Protein [Mass/Vol] 6.2 g/dL Critically low 6.4-8.2 [facility] Comment on above: Performed By: #### C MP ####[facility] Jhvwzavefw7681 [place] [phone]. Bhavani Camargo Sodium [Moles/Vol] 135 mmol/L Critically low 136-145 [facility] Comment on above: Performed By: #### C MP ####[facility] Xuiopbzlbr2379 [place] [phone]. Bhavani Camargo Urea nitrogen [Mass/Vol] 14.0 mg/dL Normal 7.0-18.0 [facility] Comment on above: Performed By: #### C MP ####[facility] Uhbwresvtg4212 [place] [phone]. Bhavani Laurel Urea nitrogen/Creatinine [Mass ratio] 13.1 mg/mg Normal [facility] Comment on above: Performed By: #### C MP ####[facility] Niqidmhcps9463 [place] [address]Dr. Bhavani Camargo PROTIMEon 03-26-2022 INR Coag (PPP) [Relative time] 1.31 {INR} Normal [facility] Comment on above: Performed By: #### P T, PTT ####[facility] Ekicxqxnyp[address] [place], [place] [address]Dr. Bhavani Camargo INR GUIDELINES SEE BELOW Normal [facility] Comment on above: Result Comment: WALKER RED INR: 2.0 - 3.0 CONDITIONS NOT LISTED BELOW 2.5 - 3.5 FOR PROSTHETIC HEART VALVE REPLACEMENT 2.5 - 3.5 RECURRENT THROMBOSIS Performed By: #### P T, PTT ####[facility] Jtdxyqojxi655[address] [place], [place] [address]Dr. Bhavani Camargo PT Coag (PPP) [Time] 13.9 s Critically high 9.0-11.6 [facility] Comment on above: Performed By: #### P T, PTT ####[facility] Nmgkjatcsp[address] [place], [place] [address]Dr. Bhavani Camargo PTTon 03-26-2022 aPTT Coag (Bld) [Time] 32.8 s Normal 22.3-36.2 [facility] Comment on above: Performed By: #### P T, PTT ####[facility] Twnaxyuojm[address] [place], [place] [address]Dr. Bhavani Camargo AMMONIAon 03-25-2022 Ammonia (P) [Moles/Vol] 17 umol/L Normal 11-32 [facility] Comment on above: Performed By: #### A MM ####[facility] Qxnqbkbksk[address] [place], [place] [address]DrLydia Camargo CBC W MANUAL DIFFon 03-25-20 22 ATYPICAL LYMPH # Normal [facility] Comment on above: Performed By: #### Jany ANNE ####[facility] Uxwltxnwkw[address] [place], [place] [address]DrLydia Camargo ATYPICAL LYMPH % Normal [facility] Comment on above: Performed By: #### C OMID ####[facility] Waqfuurcfe3188 [place] [phone]. Yilan Camargo BAND # 0.3 103/ul Normal 0.0-0.3 [facility] Comment on above: Performed By: #### C BCMAN ####[facility] Vbahksdmux3942 [place] [address]Dr. Yilan Camargo BAND % 1 % Normal 0-5 [facility] Comment on above: Performed By: #### C BCJERSON ####[facility] Rytefxdeoz5423 [place] [address]Dr. Yilan Camargo BASOM # 0.27 103/ul Critically high 0.00-0.10 [facility] Comment on above: Performed By: #### C OMID ####[facility] Jeojxelztk2229 [place] [address]Dr. Yiroxi Camargo BASOM % 1.0 % Normal 0.2-2.0 [facility] Comment on above: Performed By: #### C OMID ####[facility] M[address]ctfytim[address] [place], [place] [address]Dr. Yilan Camargo BLAST # Normal [facility] Comment on above: Performed By: #### C OMID ####[facility] Hymvcisajs5[address] [place] [address]Dr. Yilan Camargo BLAST % Normal [facility] Comment on above: Performed By: #### C OMID ####[facility] Mnvqjaihen0551 [place] [address]Dr. Bhavani Camargo CORRECTED WBC Normal 4.0-11.0 [facility] Comment on above: Performed By: #### C OMID ####[facility] Pswwztlbar8858 [place] [address]Dr. Yiroxi Camargo EOS # 0.00 103/ul Normal 0.00-0.70 [facility] Comment on above: Performed By: #### C BCJERSON ####[facility] Msmulsuohr1257 [place] [address]Dr. Bhavani Camargo EOS% 0.0 % Critically low 0.9-7.0 [facility] Comment on above: Performed By: #### C OMID ####[facility] Xnxjsgfeqx2803 [place], [place] [address]Zm. Bhavani Camargo HCT 41.6 % Normal 36.0-48.0 [facility] Comment on above: Performed By: #### C OMID ####[facility] Nsznljgvjz4121 [place], [place] [address]Zo. Bhavani Camargo HGB 12.8 g/dl Normal 12.0-16.0 [facility] Comment on above: Performed By: #### C OMID ####[facility] Cbmqsakxnz5351 [place], [place] [address]Bm. Bhavani Camargo LYMPHM # 0.80 103/ul Critically low 1.20-3.80 [facility] Comment on above: Performed By: #### C OMID ####[facility] Fuuuajkcga8465 [place] [phone]. Bhavani Camargo LYMPHM% 3.0 % Critically low 20.5-60.0 [facility] Comment on above: Performed By: #### Jany ANNE ####[facility] Zrgigavnzi8466 [place], [place] [address]Zd. Bhavani Camargo MCH 29.4 pg Normal 26.7-34.0 [facility] Comment on above: Performed By: #### Jany ANNE ####[facility] Cdoeuakqwr0826 [place] [phone]. Bhavani Camargo MCHC 30.8 g/dl Normal 29.9-35.2 [facility] Comment on above: Performed By: #### Jany ANNE ####[facility] Rupfqomrrw4933 [place], [place] [address]Jm. Bhavani Camargo MCV 95.6 fL Normal 81.0-99.0 [facility] Comment on above: Performed By: #### C OMID ####[facility] Cjhvmrsonj4008 [place], [place] [address]Vf. Bhavani Camargo METAMYELOCYTE # Normal [facility] Comment on above: Performed By: #### Jany ANNE ####[facility] Etdwxlzhmk5596 [place], [place] [address]Xx. Bhavani Camargo METAMYELOCYTE % Normal [facility] Comment on above: Performed By: #### C OMID ####[facility] Aaazneofyn3048 [place], [place] [address]Zx. Bhavani Camargo MONOM# 0.80 103/ul Normal 0.30-0.80 [facility] Comment on above: Performed By: #### C OMID ####[facility] Vnwsuuappu[address] [place] [place] [id number]. Bhavani Camargo MONOM% 3.0 % Normal 1.7-12.0 [facility] Comment on above: Performed By: #### C OMID ####[facility] Ejuiuyxnim3936 [place] [id number]. Bhavani Camargo MPV 9.9 fL Normal 9.5-13.5 [facility] Comment on above: Performed By: #### C OMID ####[facility] [address]ff[address] [place], [place] [address]Dr. Bhavani Camargo MYELOCYTE # Normal [facility] Comment on above: Performed By: #### C OMID ####[facility] Azvamqfide[address] [place], [place] [address]Dr. Bhavani Camargo MYELOCYTE % Normal [facility] Comment on above: Performed By: #### C OMID ####[facility] Aklcioejex6168 [place] [id number]. Bhavani Camargo NRBC Normal [facility] Comment on above: Performed By: #### C OMID ####[facility] Njlpaznyoa9305 [place], [place] [address]Cl. Bhavani Camargo PLT 448 103/ul Normal 150-450 [facility] Comment on above: Performed By: #### C OMID ####[facility] Hacxvswieh[address] [place], [place] [address]Dr. Bhavani Camargo RBC 4.35 106/ul Normal 4.20-5.40 [facility] Comment on above: Performed By: #### C OMID ####[facility] Srjajskmjf[address] [place], [place] [address]Dr. Bhavani Camargo RDW 16.0 % Critically high 11.0-15.0 [facility] Comment on above: Performed By: #### C BCMAN ####[facility] Mqexkiknxi15[address] [place] [address]Dr. Bhavani Camargo SEG # 24.38 103/ul Critically high 1.40-6.50 [facility] Comment on above: Performed By: #### C BCMAN ####[facility] Udyhzmezlz7398 [place] [address]Dr. Bhavani Camargo SEG % 92.0 % Critically high 43.0-75.0 [facility] Comment on above: Performed By: #### C OMID ####[facility] Ktlttzouhf6935 [place] [address]Dr. Bhavani Camargo WBC 26.5 103/ul Critically high 4.0-11.0 [facility] Comment on above: Performed By: #### C OMID ####[facility] Omyozbhdid[address] [place], [place] [address]Dr. Bhavani Camargo DIFFERENTIAL MANUALon 2021 ATYPICAL LYMPH # Normal [facility] Comment on above: Performed By: #### D IFF ####[facility] Tvdtfpmxrq[address] [place], [place] [address]Dr. Bhavani Camargo ATYPICAL LYMPH % Normal [facility] Comment on above: Performed By: #### D IFF ####[facility] Clziccnlsv0828 [place] [address]Dr. Bhavani Camargo BAND # 0.3 103/ul Normal 0.0-0.3 [facility] Comment on above: Performed By: #### D IFF ####[facility] Lftzfxbgmr6948 [place] [address]Dr. Bhavani Camargo BAND % 1 % Normal 0-5 [facility] Comment on above: Performed By: #### D IFF ####[facility] Lhpyztwykd4602 [place] [address]Dr. Bhavani Camargo BASOM # 0.27 103/ul Critically high 0.00-0.10 [facility] Comment on above: Performed By: #### D IFF ####[facility] Acdutxzfep0982 [place] [address]Dr. Bhavani Camargo BASOM % 1.0 % Normal 0.2-2.0 [facility] Comment on above: Performed By: #### D IFF ####[facility] Dtztwvodlp5905 [place] [address]Dr. Bhavani Camargo BLAST # Normal [facility] Comment on above: Performed By: #### D IFF ####[facility] Fohxzyavip[address] [place], [place] [address]Dr. Bhavani Camargo BLAST % Normal [facility] Comment on above: Performed By: #### D IFF ####[facility] Jgivwyrpfm12[address] [place], [place] [address]Dr. Bhavani Camargo CORRECTED WBC Normal 4.0-11.0 [facility] Comment on above: Performed By: #### D IFF ####[facility] Rgpoongdks[address] [place], [place] [address]Dr. Bhavani Camargo EOS # 0.00 103/ul Normal 0.00-0.70 [facility] Comment on above: Performed By: #### D IFF ####[facility] Getohypugz069[address] [place], [place] [address]Dr. Bhavani Camargo EOS% 0.0 % Critically low 0.9-7.0 [facility] Comment on above: Performed By: #### D IFF ####[facility] Mvzpuvacit78[address] [place], [place] [address]Dr. Bhavani Camargo LYMPHM # 0.80 103/ul Critically low 1.20-3.80 [facility] Comment on above: Performed By: #### D IFF ####[facility] Bjdidifqgc3657[address] [place], [place] [address]Dr. Bhavani Camargo LYMPHM% 3.0 % Critically low 20.5-60.0 [facility] Comment on above: Performed By: #### D IFF ####[facility] Cyozayswba11[address] [place], [place] [address]Dr. Bhavani Camargo METAMYELOCYTE # Normal [facility] Comment on above: Performed By: #### D IFF ####[facility] Skuqbxaqrn8197 [place] [phone]. Bhavani Camargo METAMYELOCYTE % Normal [facility] Comment on above: Performed By: #### D IFF ####[facility] Sufjtlihbl2184 [place] [phone]. Bhavani Camargo MONOM# 0.80 103/ul Normal 0.30-0.80 [facility] Comment on above: Performed By: #### D IFF ####[facility] Gvgxgfdfbf9110 [place] [phone]. Bhavani Camargo MONOM% 3.0 % Normal 1.7-12.0 [facility] Comment on above: Performed By: #### D IFF ####[facility] Xkklhqeqqs88[address] [place], [place] [address]Dr. Bhavani Camargo MYELOCYTE # Normal [facility] Comment on above: Performed By: #### D IFF ####[facility] Qupinkgcpi26[address] [place], [place] [address]Dr. Bhavani Camargo MYELOCYTE % Normal [facility] Comment on above: Performed By: #### D IFF ####[facility] Xhlbziqeag9258 [place] [phone]. Bhavani Camargo NRBC Normal [facility] Comment on above: Performed By: #### D IFF ####[facility] Lpxwborzkj3170 [place] [phone]. Bhavani Camargo SEG # 24.38 103/ul Critically high 1.40-6.50 [facility] Comment on above: Performed By: #### D IFF ####[facility] Lbsgoaxoqg0773 [place] [phone]. Bhavani Camargo SEG % 92.0 % Critically high 43.0-75.0 [facility] Comment on above: Performed By: #### D IFF ####[facility] Dicyhxagph60[address] [place], [place] [address]Dr. Bhavani Camargo WBC 26.5 103/ul Critically high 4.0-11.0 [facility] Comment on above: Performed By: #### D IFF ####[facility] Cghrzafjda9572 [place] [address]Dr. Bhavani Camargo POINT OF CARE GLUCOSEon 05- Glucose [Mass/Vol] 120 mg/dL Critically high 74-106 [facility] Comment on above: Performed By: #### P OCGLUC ####[facility] Eyjsnjmzme8013 [place] [address]Dr. Bhavani Camargo Glucose [Mass/Vol] 98 mg/dL Normal 74-106 [facility] Comment on above: Performed By: #### P OCGLUC ####[facility] Jmhqisikkt9690 [place] [address]Dr. Bhavani Camargo PROF 14(COMP METB)on 022 Albumin [Mass/Vol] 2.3 g/dL Critically low 3.4-5.0 [facility] Comment on above: Performed By: #### C MP ####[facility] Jdsxagoltm1441 [place] [address]Dr. Bhavani Camargo Albumin/Globulin [Mass ratio] 0.6 {ratio} Normal [facility] Comment on above: Performed By: #### C MP ####[facility] Ivdzkfdoyx1361 [place] [address]Dr. Bhavani Camargo ALP [Catalytic activity/Vol] 309 U/L Critically high 46-116 [facility] Comment on above: Performed By: #### C MP ####[facility] Cpppdpuipx4380 [place] [address]Dr. Bhavani Camargo ALT [Catalytic activity/Vol] 163 U/L Critically high 14-59 [facility] Comment on above: Performed By: #### C MP ####[facility] Kmuydzpapn5837 [place] [address]Dr. Bhavani Camargo Anion gap [Moles/Vol] 12.2 mmol/L Normal [facility] Comment on above: Performed By: #### C MP ####[facility] Swcpylbpym4774 [place] [address]Dr. Bhavani Camargo AST [Catalytic activity/Vol] 103 U/L Critically high 15-37 [facility] Comment on above: Performed By: #### C MP ####[facility] Urwhomscuz5901 [place] [address]Dr. Bhavani Camargo Bilirubin [Mass/Vol] 1.5 mg/dL Critically high 0.2-1.0 [facility] Comment on above: Performed By: #### C MP ####[facility] Lyvwmcoxtt[address] [place], [place] [address]Dr. Bhavani Laurel Calcium [Mass/Vol] 7.3 mg/dL Critically low 8.5-10.1 [facility] Comment on above: Performed By: #### C MP ####[facility] Mgnbclnpzv430[address] [place], [place] [address]Dr. Bhavani Laurel Chloride [Moles/Vol] 107 mmol/L Normal 98-107 [facility] Comment on above: Performed By: #### C MP ####[facility] Ynmrklyncj228[address] [place], [place] [address]Dr. Bhavani Laurel CO2 [Moles/Vol] 21.9 mmol/L Normal 21.0-32.0 [facility] Comment on above: Performed By: #### C MP ####[facility] Edqengacwl9627[address] [place], [place] [address]Dr. Bhavani Laurel Creatinine [Mass/Vol] 1.22 mg/dL Critically high 0.55-1.02 [facility] Comment on above: Performed By: #### C MP ####[facility] Wucrqgcshm[address] [place], [place] [address]Dr. Bhavani Laurel EGFR-AF MALAYSIAN 51 mL/min/1.73m2 Critically low >=60 [facility] Comment on above: Performed By: #### C MP ####[facility] Gsukzcimby335[address] [place], [place] [address]Dr. Jayceeroxi Laurel EGFR-NON AF MALAYSIAN 42 mL/min/1.73m2 Critically low >=60 [facility] Comment on above: Performed By: #### C MP ####[facility] Vcmhizjchn[address] [place], [place] [address]Dr. Bhavani Camargo Globulin (S) [Mass/Vol] 3.7 g/dL Normal [facility] Comment on above: Performed By: #### C MP ####[facility] Qimxenxuhg75[address] [place], [place] [address]Dr. Bhavani Camargo Glucose [Mass/Vol] 165 mg/dL Critically high 74-106 [facility] Comment on above: Performed By: #### C MP ####[facility] Guxutanzeo1728[address] [place], [place] [address]Dr. Bhavani Camargo Potassium [Moles/Vol] 4.1 mmol/L Normal 3.5-5.1 [facility] Comment on above: Performed By: #### C MP ####[facility] Ppcopmsssm[address] [place], [place] [address]Dr. Bhavani Camargo Protein [Mass/Vol] 6.0 g/dL Critically low 6.4-8.2 Th [facility] Comment on above: Performed By: #### C MP ####[facility] Botrfrpniq349[address] [place], [place] [address]Dr. Bhavani Camargo Sodium [Moles/Vol] 137 mmol/L Normal 136-145 [facility] Comment on above: Performed By: #### C MP ####[facility] Gtcegwppoi03[address] [place], [place] [address]Dr. Bhavani Camargo Urea nitrogen [Mass/Vol] 18.0 mg/dL Normal 7.0-18.0 [facility] Comment on above: Performed By: #### C MP ####[facility] Uirjdeizdc[address] [place], [place] [address]Dr. Bhavani Camargo Urea nitrogen/Creatinine [Mass ratio] 14.8 mg/mg Normal [facility] Comment on above: Performed By: #### C MP ####[facility] Awzjbaphfj8[address] [place], [place] [address]Dr. Bhavani Camargo PROTIMEon 03-25-2022 INR Coag (PPP) [Relative time] 1.18 {INR} Normal [facility] Comment on above: Performed By: #### P TT, PT ####[facility] Eluarmnacg[address] [place], [place] [address]Dr. Bhavani Camargo INR GUIDELINES SEE BELOW Normal [facility] Comment on above: Result Comment: WALKER RED INR: 2.0 - 3.0 CONDITIONS NOT LISTED BELOW 2.5 - 3.5 FOR PROSTHETIC HEART VALVE REPLACEMENT 2.5 - 3.5 RECURRENT THROMBOSIS Performed By: #### P TT, PT ####[facility] Fkvdrbiaqy32[address] [place], [place] [address]Dr. Bhavani Camargo PT Coag (PPP) [Time] 12.6 s Critically high 9.0-11.6 [facility] Comment on above: Performed By: #### P TT, PT ####[facility] Kltnjkchny9[address] [place], [place] [address]Dr. Bhavani Camargo PTTon 03-25-2022 aPTT Coag (Bld) [Time] 30.6 s Normal 22.3-36.2 [facility] Comment on above: Performed By: #### P TT, PT ####[facility] Qaypixxmiw873[address] [place], [place] [address]Dr. Bhavani Camargo AMMONIAon 03-24-2022 Ammonia (P) [Moles/Vol] 38 umol/L Critically high 11-32 [facility] Comment on above: Performed By: #### A MM ####[facility] Jbgtvkjmau17[address] [place], [place] [address]Dr. roxi Camargo BNPon 03-24-2022 Natriuretic peptide B (Bld) [Mass/Vol] 2420.0 pg/mL Critically high <=1,800.0 [facility] Comment on above: Result Comment: repe ated Performed By: #### B MEDICATION SPECIALIST, CMP ####[facility] Mblcuzbzof76[address] [place], [place] [address]Dr. Bhavani Camargo CARDIAC ANDREA 3-6on 2 CK [Catalytic activity/Vol] 20 U/L Critically low 26-192 [facility] Comment on above: Performed By: #### C MREP ####[facility] Plcorihmzn[address] [place], [place] [address]Dr. Bhavani Camargo CK.MB [Mass/Vol] ng/mL Normal <=3.60 [facility] Comment on above: Performed By: #### C MREP ####[facility] Atrkjqrsmc2851 [place] [id number]. Bhavani Camargo HSTROP 42.4 pg/mL Normal 4.0-51.3 [facility] Comment on above: Result Comment: CUT- OFF POINTS HAVE BEEN ESTABLISHED BASED ON THE FOURTH UNIVERSAL DEFINITIONS OF MYOCARDIALINFARCTION. THE UPPER REFERENCE LIMIT (URL) OF TROPONIN, DEFINED THE 99TH PERCENTILE OFcTnI DISTRIBUTION IN A REFERENCE POPULATION, HAS BEEN CONFIRMED THE DECISION THRESHOLDFOR PR DIAGNOSIS. Performed By: #### C MREP ####[facility] Qkorsjxold7420 [place] [address]Dr. Bhavani Laurel CK [Catalytic activity/Vol] 17 U/L Critically low 26-192 [facility] Comment on above: Performed By: #### C MREP ####[facility] Pcessridml8817 [place] [address]Dr. Bhavani Camargo CK.MB [Mass/Vol] 0.51 ng/mL Normal <=3.60 [facility] Comment on above: Performed By: #### C MREP ####[facility] Ljdqbiaulp9344 [place] [address]Dr. Bhavani Laurel HSTROP 45.4 pg/mL Normal 4.0-51.3 [facility] Comment on above: Result Comment: CUT- OFF POINTS HAVE BEEN ESTABLISHED BASED ON THE FOURTH UNIVERSAL DEFINITIONS OF MYOCARDIALINFARCTION. THE UPPER REFERENCE LIMIT (URL) OF TROPONIN, DEFINED THE 99TH PERCENTILE OFcTnI DISTRIBUTION IN A REFERENCE POPULATION, HAS BEEN CONFIRMED THE DECISION THRESHOLDFOR PR DIAGNOSIS. Performed By: #### C MREP ####[facility] Qdovacpqmy0930 [place] [address]Dr. Bhavani Camargo CBC W MANUAL DIFFon 03-24-20 22 ANISOCYTOSIS 1+ Normal [facility] Comment on above: Performed By: #### C BCMAN ####[facility] Kuvszqqsdj5070 [place] [phone]. Bhavani Camargo ATYPICAL LYMPH # Normal [facility] Comment on above: Performed By: #### C OMID ####[facility] Qypherrfhx1311 [place] [phone]. Bhavani Camargo ATYPICAL LYMPH % Normal [facility] Comment on above: Performed By: #### C OMID ####[facility] Tdzflrxhmi2216 [place] [phone]. Bhavani Camargo BAND # 0.8 103/ul Critically high 0.0-0.3 [facility] Comment on above: Performed By: #### C OMID ####[facility] Pgwxqkvkpd0670 [place] [address]Dr. Yilan Camargo BAND % 3 % Normal 0-5 [facility] Comment on above: Performed By: #### C OMID ####[facility] Lcyucsjzfp3651 [place] [address]Dr. Bhavani Camargo BASOM # 0.00 103/ul Normal 0.00-0.10 [facility] Comment on above: Performed By: #### C OMID ####[facility] Efqnchbpix8[address] [place], [place] [address]Dr. Bhavani Camargo BASOM % 0.0 % Critically low 0.2-2.0 [facility] Comment on above: Performed By: #### C OMID ####[facility] Nnvmngkwwr[address] [place], [place] [address]Dr. Bhavani Camargo BLAST # Normal [facility] Comment on above: Performed By: #### C OMID ####[facility] Zdtxdqdiom6379 [place] [address]Dr. Bhavani Camargo BLAST % Normal [facility] Comment on above: Performed By: #### C OMID ####[facility] Xcnkbdujsu9331 [place] [address]Dr. Bhavani Camargo CORRECTED WBC Normal 4.0-11.0 [facility] Comment on above: Performed By: #### C OMID ####[facility] Xkmiueuxxi9682 [place] [address]Dr. Bhavani Camargo EOS # 0.00 103/ul Normal 0.00-0.70 [facility] Comment on above: Performed By: #### C OMID ####[facility] Tyudikaztj2665 [place], [place] [address]Te. Bhavani Camargo EOS% 0.0 % Critically low 0.9-7.0 [facility] Comment on above: Performed By: #### C OMID ####[facility] Mdadgynmmr0771 [place], [place] [address]Jk. Bhavani Camargo HCT 44.0 % Normal 36.0-48.0 [facility] Comment on above: Performed By: #### C OMID ####[facility] Ldhlzpmccn6339 [place], [place] [address]Wi. Bhavani Camargo HGB 13.3 g/dl Normal 12.0-16.0 [facility] Comment on above: Performed By: #### C OMID ####[facility] Hodjmximvm3322 [place], [place] [address]Nh. Bhavani Camargo LYMPHM # 1.08 103/ul Critically low 1.20-3.80 [facility] Comment on above: Performed By: #### Jany ANNE ####[facility] Xdngefwqay5475 [place], [place] [address]Ud. Bhavani Camargo LYMPHM% 4.0 % Critically low 20.5-60.0 [facility] Comment on above: Performed By: #### C OMID ####[facility] Rmzejsgykl0163 [place], [place] [address]Ck. Bhavani Camargo MCH 29.6 pg Normal 26.7-34.0 [facility] Comment on above: Performed By: #### Jany ANNE ####[facility] Lsnrygmbdb3717 [place], [place] [address]Gi. Bhavani Camargo MCHC 30.2 g/dl Normal 29.9-35.2 [facility] Comment on above: Performed By: #### C OMID ####[facility] Sgdtwstckw5626 [place], [place] [address]Oo. Bhavani Camargo MCV 97.8 fL Normal 81.0-99.0 [facility] Comment on above: Performed By: #### Jany ANNE ####[facility] Phewhhypss6178 [place], [place] [address]Ym. Yilan Camargo METAMYELOCYTE # Normal [facility] Comment on above: Performed By: #### C OMID ####[facility] Crdhtypeed4942 [place] [phone]. Bhavani Camargo METAMYELOCYTE % Normal [facility] Comment on above: Performed By: #### C OMID ####[facility] Ocqgroqsit1053 [place] [phone]. Bhavani Camargo MONOM# 0.54 103/ul Normal 0.30-0.80 [facility] Comment on above: Performed By: #### C OMID ####[facility] Zqelrptdem2527 [place] [phone]. Bhavani Camargo MONOM% 2.0 % Normal 1.7-12.0 [facility] Comment on above: Performed By: #### C OMID ####[facility] Zgixxsmxkj[address] [place], [place] [address]Dr. Bhavani Camargo MPV 10.3 fL Normal 9.5-13.5 [facility] Comment on above: Performed By: #### C OMID ####[facility] Ftjwlskncc3263 [place] [phone]. Bhavani Camargo MYELOCYTE # Normal [facility] Comment on above: Performed By: #### C OMID ####[facility] Zbcrttefny2236 [place] [phone]. Bhavani Camargo MYELOCYTE % Normal [facility] Comment on above: Performed By: #### C OMID ####[facility] Gokoppozas2140 [place] [phone]. Bhavani Camargo NRBC Normal [facility] Comment on above: Performed By: #### C OMID ####[facility] Tfuhzodvps1207 [place] [phone]. Bhavani Camargo PLT 424 103/ul Normal 150-450 [facility] Comment on above: Performed By: #### C OMID ####[facility] Ylccoetqca0072 [place] [phone]. Bhavani Laurel RBC 4.50 106/ul Normal 4.20-5.40 [facility] Comment on above: Performed By: #### C BCMAN ####[facility] Rtfdplltni2569 [place], [place] [address]En. Bhavani Camargo RDW 15.9 % Critically high 11.0-15.0 [facility] Comment on above: Performed By: #### C BCMAN ####[facility] Pqxsjegwwq5664 [place], [place] [address]Qa. Bhavani Camargo SEG # 24.48 103/ul Critically high 1.40-6.50 [facility] Comment on above: Performed By: #### C BCMAN ####[facility] Hkdwwwewde5687 [place], [place] [address]Yn. Bhavani Camargo SEG % 91.0 % Critically high 43.0-75.0 [facility] Comment on above: Performed By: #### C BCMAN ####[facility] Xdiozjkdxj3554 [place], [place] [address]Gb. Bhavani Camargo WBC 26.9 103/ul Critically high 4.0-11.0 [facility] Comment on above: Performed By: #### C BCMAN ####[facility] Oibcigegbo7229 [place], [place] [address]Mr. Bhavani Camargo CULTURE URINEon 03-24-2022 CULTURE URINE Normal [facility] Comment on above: Performed By: #### U RCX ####[facility] Zidzyixnaf9577 [place], [place] [address]Le. Bhavani Camargo POINT OF CARE GLUCOSEon Glucose [Mass/Vol] 113 mg/dL Critically high 74-106 [facility] Comment on above: Performed By: #### P OCGLUC ####[facility] Kwqbbtmzkz3235 [place], [place] [address]Mb. Bhavani Camargo Glucose [Mass/Vol] 103 mg/dL Normal 74-106 [facility] Comment on above: Performed By: #### P OCGLUC ####[facility] Oyigpqswav6453 [place], [place] [address]Nb. Bhavani Camargo Glucose [Mass/Vol] 134 mg/dL Critically high 74-106 [facility] Comment on above: Performed By: #### P OCGLUC ####[facility] Mcaduqlmuh8100 [place] [address]Dr. Bhavani Camargo PROF 14(COMP METB)on 022 Albumin [Mass/Vol] 2.3 g/dL Critically low 3.4-5.0 Th [facility] Comment on above: Performed By: #### B MEDICATION SPECIALIST, CMP ####[facility] Miraffotfm[address] [place], [place] [address]Dr. Bhavani Camargo Albumin/Globulin [Mass ratio] 0.6 {ratio} Normal [facility] Comment on above: Performed By: #### B MEDICATION SPECIALIST, CMP ####[facility] Zbwpejuedd67[address] [place], [place] [address]Dr. Bhavani Camargo ALP [Catalytic activity/Vol] 239 U/L Critically high 46-116 [facility] Comment on above: Performed By: #### B MEDICATION SPECIALIST, CMP ####[facility] Juszlwmcqe[address] [place], [place] [address]Dr. Bhavani Camargo ALT [Catalytic activity/Vol] 185 U/L Critically high 14-59 [facility] Comment on above: Performed By: #### B MEDICATION SPECIALIST, CMP ####[facility] Uhnuoiwzsj38[address] [place], [place] [address]Dr. Bhavani Camargo Anion gap [Moles/Vol] 13.8 mmol/L Normal [facility] Comment on above: Performed By: #### B MEDICATION SPECIALIST, CMP ####[facility] Ujaxmtjspe9922[address] [place], [place] [address]Dr. Bhavani Camargo AST [Catalytic activity/Vol] 64 U/L Critically high 15-37 [facility] Comment on above: Performed By: #### B MEDICATION SPECIALIST, CMP ####[facility] Yddonecpwh23[address] [place], [place] [address]Dr. Bhavani Camargo Bilirubin [Mass/Vol] 0.6 mg/dL Normal 0.2-1.0 [facility] Comment on above: Performed By: #### B MEDICATION SPECIALIST, CMP ####[facility] K[address]wtgvfok[address] [place], [place] [address]Dr. Bhavani Camargo Calcium [Mass/Vol] 7.3 mg/dL Critically low 8.5-10.1 [facility] Comment on above: Performed By: #### B MEDICATION SPECIALIST, CMP ####[facility] Caoulltgdf52[address] [place], [place] [address]Dr. Bhavani Camargo Chloride [Moles/Vol] 105 mmol/L Normal 98-107 [facility] Comment on above: Performed By: #### B MEDICATION SPECIALIST, CMP ####[facility] Ouzthdmqkk45[address] [place], [place] [address]Dr. Bhavani Camargo CO2 [Moles/Vol] 20.9 mmol/L Critically low 21.0-32.0 [facility] Comment on above: Performed By: #### B MEDICATION SPECIALIST, CMP ####[facility] Xxdynasqbd02[address] [place], [place] [address]Dr. Bhavani Camargo Creatinine [Mass/Vol] 1.24 mg/dL Critically high 0.55-1.02 [facility] Comment on above: Performed By: #### B MEDICATION SPECIALIST, CMP ####[facility] Feycxzbbhx[address] [place], [place] [address]Dr. Bhavani Camargo EGFR-AF MALAYSIAN 50 mL/min/1.73m2 Critically low >=60 [facility] Comment on above: Performed By: #### B MEDICATION SPECIALIST, CMP ####[facility] Sscbmmcbbh[address] [place], [place] [address]Dr. Bhavani Camargo EGFR-NON AF MALAYSIAN 41 mL/min/1.73m2 Critically low >=60 [facility] Comment on above: Performed By: #### B MEDICATION SPECIALIST, CMP ####[facility] [address] [place], [place] [address]Dr. Bhavani Camargo Globulin (S) [Mass/Vol] 3.8 g/dL Normal [facility] Comment on above: Performed By: #### B MEDICATION SPECIALIST, CMP ####[facility] Gohaujfbfd[address] [place], [place] [address]Dr. Bhavani Camargo Glucose [Mass/Vol] 164 mg/dL Critically high 74-106 [facility] Comment on above: Performed By: #### B MEDICATION SPECIALIST, CMP ####[facility] [address]avwr[address] [place] [address]Dr. Jayceeroxi Camargo Potassium [Moles/Vol] 3.7 mmol/L Normal 3.5-5.1 [facility] Comment on above: Performed By: #### B MEDICATION SPECIALIST, CMP ####[facility] Wnnpmcalrx[address] [place], [place] [address]Dr. Jayceeroxi Camargo Protein [Mass/Vol] 6.1 g/dL Critically low 6.4-8.2 Th [facility] Comment on above: Performed By: #### B MEDICATION SPECIALIST, CMP ####[facility] Gagdhajxjb[address] [place], [place] [address]Dr. Bhavani Camargo Sodium [Moles/Vol] 136 mmol/L Normal 136-145 [facility] Comment on above: Performed By: #### B MEDICATION SPECIALIST, CMP ####[facility] Qllngmbmoo[address] [place], [place] [address]Dr. Bhavani Camargo Urea nitrogen [Mass/Vol] 23.0 mg/dL Critically high 7.0-18.0 [facility] Comment on above: Performed By: #### B MEDICATION SPECIALIST, CMP ####[facility] Llulqzeviy[address] [place], [place] [address]Dr. Jayceeroxi Laurel Urea nitrogen/Creatinine [Mass ratio] 18.5 mg/mg Normal [facility] Comment on above: Performed By: #### B MEDICATION SPECIALIST, CMP ####[facility] Mcnmaglxat[address] [place], [place] [address]Dr. Bhavani Camargo PROTIMEon 03-24-2022 INR Coag (PPP) [Relative time] 1.19 {INR} Normal [facility] Comment on above: Performed By: #### P TT, PT ####[facility] Hwknvnkrnu[address] [place], [place] [address]Dr. Bhavani Camargo INR GUIDELINES SEE BELOW Normal [facility] Comment on above: Result Comment: WALKER RED INR: 2.0 - 3.0 CONDITIONS NOT LISTED BELOW 2.5 - 3.5 FOR PROSTHETIC HEART VALVE REPLACEMENT 2.5 - 3.5 RECURRENT THROMBOSIS Performed By: #### P TT, PT ####[facility] Cucppprauf[address] [place], [place] [address]Dr. Bhavani Camargo PT Coag (PPP) [Time] 12.7 s Critically high 9.0-11.6 [facility] Comment on above: Performed By: #### P TT, PT ####[facility] [address] [place] [address]Dr. Bhavani Camargo PTTon 03-24-2022 aPTT Coag (Bld) [Time] 29.4 s Normal 22.3-36.2 [facility] Comment on above: Performed By: #### P TT, PT ####[facility] [address]pmvlp[address] [place] [address]Dr. Bhavani Camargo AMMONIAon 03-23-2022 Ammonia (P) [Moles/Vol] 26 umol/L Normal 11-32 [facility] Comment on above: Performed By: #### A MM ####[facility] Hrrkcntcga[address] [place], [place] [address]Dr. Bhavani Camargo AMYLASEon 03-23-2022 Amylase [Catalytic activity/Vol] 21 U/L Critically low 25-115 [facility] Comment on above: Performed By: #### A MY LIPA, BNP ####[facility] Nzgqghqwrx[address] [place], [place] [address]Dr. Bhavani Camargo BNPon 03-23-2022 Natriuretic peptide B (Bld) [Mass/Vol] 6713.0 pg/mL Critically high <=1,800.0 [facility] Comment on above: Result Comment: repe ated Performed By: #### B MEDICATION SPECIALIST, CMP ####[facility] [address]urjbe[address] [place], [place] [address]Dr. Bhavani Camargo Natriuretic peptide B (Bld) [Mass/Vol] 6961.0 pg/mL Critically high <=1,800.0 [facility] Comment on above: Performed By: #### A MY, LIPA, BNP ####[facility] Smqerakebh[address] [place], [place] [address]Dr. Bhavani Camargo CBC W MANUAL DIFFon 03-23-20 ANISOCYTOSIS 1+ Normal [facility] Comment on above: Performed By: #### C BCMAN ####[facility] [address] [place] [phone]. Bhavani Camargo ATYPICAL LYMPH # Normal [facility] Comment on above: Performed By: #### C BCMAN ####[facility] Nyhalvfyjz[address] [place] [address]Dr. Bhavani Camargo ATYPICAL LYMPH % Normal [facility] Comment on above: Performed By: #### C BCJERSON ####[facility] Ccamgmxbyv[address] [place] [address]Dr. Yilan Camargo BAND # 0.6 103/ul Critically high 0.0-0.3 [facility] Comment on above: Performed By: #### C BCJERSON ####[facility] Nvxwqrgzzy[address] [place], [place] [address]Dr. Jayceelan Camargo BAND % 2 % Normal 0-5 [facility] Comment on above: Performed By: #### C OMID ####[facility] [address]ixyggahp[address] [place], [place] [address]Dr. Bhavani Camargo BASOM # 0.00 103/ul Normal 0.00-0.10 [facility] Comment on above: Performed By: #### C OMID ####[facility] Ysvbotxpym[address] [place], [place] [address]Dr. Bhavani Camargo BASOM % 0.0 % Critically low 0.2-2.0 [facility] Comment on above: Performed By: #### C OMID ####[facility] [address]se[address] [place] [address]Dr. Jayceelan Camargo BLAST # Normal [facility] Comment on above: Performed By: #### C OMID ####[facility] L[address]ufayh[address] [place] [address]Dr. Jayceelan Camargo BLAST % Normal [facility] Comment on above: Performed By: #### C BCJERSON ####[facility] Velbfsdeww32[address] [place] [address]Dr. Bhavani Camargo CORRECTED WBC Normal 4.0-11.0 [facility] Comment on above: Performed By: #### C BCJERSON ####[facility] Iypeirscdi6650 [place], [place] [address]Qp. Bhavani Camargo EOS # 0.30 103/ul Normal 0.00-0.70 [facility] Comment on above: Performed By: #### C OMID ####[facility] [address]juw[address] [place] [phone]. Bhavani Camargo EOS% 1.0 % Normal 0.9-7.0 [facility] Comment on above: Performed By: #### C OMID ####[facility] Fxsmczsfgl8[address] [place] [phone]. Bhavani Camargo HCT 48.1 % Critically high 36.0-48.0 [facility] Comment on above: Performed By: #### C OMID ####[facility] [address] [place], [place] [address]Dr. Bhavani Camargo HGB 14.6 g/dl Normal 12.0-16.0 [facility] Comment on above: Performed By: #### C OMID ####[facility] Zrgujksmwk7198 [place] [phone]. Bhavani Camargo LYMPHM # 0.90 103/ul Critically low 1.20-3.80 [facility] Comment on above: Performed By: #### C OMID ####[facility] Jwszwspl[address] [place], [place] [address]Dr. Bhavani Camargo LYMPHM% 3.0 % Critically low 20.5-60.0 [facility] Comment on above: Performed By: #### C OMID ####[facility] Ohvlnwhzxh[address] [place] [phone]. Bhavani Camargo MCH 29.4 pg Normal 26.7-34.0 [facility] Comment on above: Performed By: #### C OMID ####[facility] [address] [place], [place] [address]Dr. Bhavani Camargo MCHC 30.4 g/dl Normal 29.9-35.2 [facility] Comment on above: Performed By: #### C OMID ####[facility] Hsfwsvzget34[address] [place] [phone]. Bhavani Camargo MCV 96.8 fL Normal 81.0-99.0 [facility] Comment on above: Performed By: #### C OMID ####[facility] [address]wzydkr9[address] [place] [phone]. Bhavani Camargo METAMYELOCYTE # Normal [facility] Comment on above: Performed By: #### C OMID ####[facility] Ymwlwygfjh3302 [place] [phone]. Bhavani Camargo METAMYELOCYTE % Normal [facility] Comment on above: Performed By: #### C OMID ####[facility] Hczaragvgr5023 [place] [phone]. Bhavani Camargo MONOM# 0.60 103/ul Normal 0.30-0.80 [facility] Comment on above: Performed By: #### C OMID ####[facility] Bwploqtapn7[address] [place] [phone]. Bhavani Camargo MONOM% 2.0 % Normal 1.7-12.0 [facility] Comment on above: Performed By: #### C OMID ####[facility] Tbtuupwlyn9864 [place] [phone]. Bhavani Camargo MPV 10.2 fL Normal 9.5-13.5 [facility] Comment on above: Performed By: #### Jany ANNE ####[facility] Lzfkjasiss1736 [place] [phone]. Bhavani Camargo MYELOCYTE # Normal [facility] Comment on above: Performed By: #### Jany ANNE ####[facility] Jzoexwerhv8202 [place] [phone]. Bhavani Camargo MYELOCYTE % Normal [facility] Comment on above: Performed By: #### Jany ANNE ####[facility] [address]uz[address] [place], [place] [address]Dr. Bhavani Camargo NRBC Normal [facility] Comment on above: Performed By: #### C OMID ####[facility] [address]ostrfps5[address] [place] [phone]. Bhavani Camargo PLT 391 103/ul Normal 150-450 [facility] Comment on above: Performed By: #### C OMID ####[facility] O[address]yvjegse37[address] [place] [phone]. Bhavani Camargo RBC 4.97 106/ul Normal 4.20-5.40 [facility] Comment on above: Performed By: #### C OMID ####[facility] Tbvcksgkqj8351 [place] [phone]. Bhavani Camargo RDW 15.8 % Critically high 11.0-15.0 [facility] Comment on above: Performed By: #### C OMID ####[facility] Lzcpvehuht7350 [place] [phone]. Bhavani Camargo SEG # 27.60 103/ul Critically high 1.40-6.50 [facility] Comment on above: Performed By: #### C OMID ####[facility] Uempzylgrx9835 [place] [phone]. Bhavani Camargo SEG % 92.0 % Critically high 43.0-75.0 [facility] Comment on above: Performed By: #### C OMID ####[facility] Ihrbmoagok1859 [place] [phone]. Bhavani Camargo WBC 30.0 103/ul Critically high 4.0-11.0 [facility] Comment on above: Performed By: #### C OMID ####[facility] Lhrltscdyi6594 [place] [phone]. Bhavani Camargo LIPASEon 03-23-2022 Lipase [Catalytic activity/Vol] 35.0 U/L Critically low 73.0-393.0 [facility] Comment on above: Performed By: #### A MY, LIPA, BNP ####[facility] Pvmfnflfll7990 [place] [phone]. Bhavani Camargo POINT OF CARE GLUCOSEon Glucose [Mass/Vol] 141 mg/dL Critically high 74-106 [facility] Comment on above: Performed By: #### P OCGLUC ####[facility] Mrccuroqoc6797 [place] [phone]. Bhavani Camargo Glucose [Mass/Vol] 107 mg/dL Critically high 74-106 [facility] Comment on above: Performed By: #### P OCGLUC ####[facility] Nktkavjrqn7965 [place] [address]Dr. Bhavani Camargo Glucose [Mass/Vol] 152 mg/dL Critically high 74-106 [facility] Comment on above: Performed By: #### P OCGLUC ####[facility] Tjtrctcsor6[address] [place] [address]Dr. Bhavani Camargo PROF 14(COMP METB)on 022 Albumin [Mass/Vol] 2.4 g/dL Critically low 3.4-5.0 [facility] Comment on above: Performed By: #### B MEDICATION SPECIALIST, CMP ####[facility] Qdzgewjrlp[address] [place], [place] [address]Dr. Bhavani Camargo Albumin/Globulin [Mass ratio] 0.6 {ratio} Normal [facility] Comment on above: Performed By: #### B MEDICATION SPECIALIST, CMP ####[facility] Qcieujocea[address] [place], [place] [address]Dr. Bhavani Camargo ALP [Catalytic activity/Vol] 298 U/L Critically high 46-116 [facility] Comment on above: Performed By: #### B MEDICATION SPECIALIST, CMP ####[facility] Wvuypsswub[address] [place], [place] [address]Dr. Bhavani Camargo ALT [Catalytic activity/Vol] 280 U/L Critically high 14-59 [facility] Comment on above: Performed By: #### B MEDICATION SPECIALIST, CMP ####[facility] Ireeinajvc[address] [place], [place] [address]Dr. Bhavani Camargo Anion gap [Moles/Vol] 15.2 mmol/L Normal [facility] Comment on above: Performed By: #### B MEDICATION SPECIALIST, CMP ####[facility] Letvysoexs[address] [place], [place] [address]Dr. Bhavani Camargo AST [Catalytic activity/Vol] 146 U/L Critically high 15-37 [facility] Comment on above: Performed By: #### B MEDICATION SPECIALIST, CMP ####[facility] B[address]uczdijgv[address] [place], [place] [address]Dr. Bhavani Camargo Bilirubin [Mass/Vol] 1.8 mg/dL Critically high 0.2-1.0 [facility] Comment on above: Performed By: #### B MEDICATION SPECIALIST, CMP ####[facility] Xgvuopryje[address] [place], [place] [address]Dr. Bhavani Camargo Calcium [Mass/Vol] 7.7 mg/dL Critically low 8.5-10.1 [facility] Comment on above: Performed By: #### B MEDICATION SPECIALIST, CMP ####[facility] V[address]gevdlepc[address] [place], [place] [address]Dr. Bhavani Camargo Chloride [Moles/Vol] 105 mmol/L Normal 98-107 [facility] Comment on above: Performed By: #### B MEDICATION SPECIALIST, CMP ####[facility] Iatiyoogsi[address] [place], [place] [address]Dr. Bhavani Camargo CO2 [Moles/Vol] 22.0 mmol/L Normal 21.0-32.0 [facility] Comment on above: Performed By: #### B MEDICATION SPECIALIST, CMP ####[facility] Yjdifgyyoa[address] [place], [place] [address]Dr. Bhavani Camargo Creatinine [Mass/Vol] 1.44 mg/dL Critically high 0.55-1.02 [facility] Comment on above: Performed By: #### B MEDICATION SPECIALIST, CMP ####[facility] K[address]fhnnwha[address] [place], [place] [address]Dr. Bhavani Laurel EGFR-AF MALAYSIAN 42 mL/min/1.73m2 Critically low >=60 [facility] Comment on above: Performed By: #### B MEDICATION SPECIALIST, CMP ####[facility] Qaigesvllx[address] [place], [place] [address]Dr. Bhavani Laurel EGFR-NON AF MALAYSIAN 35 mL/min/1.73m2 Critically low >=60 [facility] Comment on above: Performed By: #### B MEDICATION SPECIALIST, CMP ####[facility] [address]wmbldc[address] [place], [place] [address]Dr. Bhavani Camargo Globulin (S) [Mass/Vol] 4.0 g/dL Normal [facility] Comment on above: Performed By: #### B MEDICATION SPECIALIST, CMP ####[facility] Tiqnsvwajx[address] [place] [address]Dr. Bhavani Camargo Glucose [Mass/Vol] 136 mg/dL Critically high 74-106 [facility] Comment on above: Performed By: #### B MEDICATION SPECIALIST, CMP ####[facility] Svxkflcguq3369 [place] [address]Dr. Jayceeroxi Camargo Potassium [Moles/Vol] 4.2 mmol/L Normal 3.5-5.1 [facility] Comment on above: Performed By: #### B MEDICATION SPECIALIST, CMP ####[facility] [address]fzlefb[address] [place], [place] [address]Dr. Bhavani Camargo Protein [Mass/Vol] 6.4 g/dL Normal 6.4-8.2 [facility] Comment on above: Performed By: #### B MEDICATION SPECIALIST, CMP ####[facility] [address]oykqxk[address] [place], [place] [address]Dr. Bhavani Camargo Sodium [Moles/Vol] 138 mmol/L Normal 136-145 [facility] Comment on above: Performed By: #### B MEDICATION SPECIALIST, CMP ####[facility] Gqhpjqhcdd[address] [place], [place] [address]Dr. Bhavani Camargo Urea nitrogen [Mass/Vol] 23.0 mg/dL Critically high 7.0-18.0 [facility] Comment on above: Performed By: #### B MEDICATION SPECIALIST, CMP ####[facility] Bsxvyoxayg[address] [place], [place] [address]Dr. Bhavani Camargo Urea nitrogen/Creatinine [Mass ratio] 16.0 mg/mg [facility] Comment on above: Performed By: #### B MEDICATION SPECIALIST, CMP ####[facility] [address]vzepl[address] [place], [place] [address]Dr. Bhavani Camargo PROTIMEon 03-23-2022 INR Coag (PPP) [Relative time] 1.53 {INR} Normal [facility] Comment on above: Performed By: #### P TT, PT ####[facility] Wreu[address]ae[address] [place], [place] [address]Dr. Bhavani Camargo INR GUIDELINES SEE BELOW Normal [facility] Comment on above: Result Comment: WALKER RED INR: 2.0 - 3.0 CONDITIONS NOT LISTED BELOW 2.5 - 3.5 FOR PROSTHETIC HEART VALVE REPLACEMENT 2.5 - 3.5 RECURRENT THROMBOSIS Performed By: #### P TT, PT ####[facility] Utkxioxkmj[address] [place] [address]Dr. Bhavani Camargo PT Coag (PPP) [Time] 16.1 s Critically high 9.0-11.6 [facility] Comment on above: Performed By: #### P TT, PT ####[facility] B[address]abhhmko[address] [place] [address]Dr. Bhavani Camargo PTTon 03-23-2022 aPTT Coag (Bld) [Time] 29.9 s Normal 22.3-36.2 [facility] Comment on above: Performed By: #### P TT, PT ####[facility] [address]twgbkyytx[address] [place], [place] [address]Dr. Bhavani Camargo BILIRUBIN CONJUGATED (DIRECT )on 03-22-2022 BILI, CONJUGATED 2.3 mg/dL Critically high 0.0-0.2 [facility] Comment on above: Performed By: #### D RAI ####[facility] [address] [place], [place] [address]Dr. Bhavani Camargo BNPon 03-22-2022 Natriuretic peptide B (Bld) [Mass/Vol] 2436.0 pg/mL Critically high <=1,800.0 [facility] Comment on above: Result Comment: this BNP was run on specimen from ER drawn on 03/22 at 1606 Performed By: #### B MEDICATION SPECIALIST ####[facility] [address]qclogsa[address] [place], [place] [address]Dr. Bhavani Camargo CBC W MANUAL DIFFon 03-22-20 22 ATYPICAL LYMPH # Normal [facility] Comment on above: Performed By: #### C BCMAN ####[facility] Pr[address]feaoja[address] [place], [place] [address]Dr. Bhavani Camargo ATYPICAL LYMPH % Normal [facility] Comment on above: Performed By: #### C BCMAN ####[facility] [address]dzkankd[address] [place], [place] [address]Dr. Bhavani Camargo BAND # 0.9 103/ul Critically high 0.0-0.3 [facility] Comment on above: Performed By: #### C BCMAN ####[facility] Aqookqpkjl[address] [place] [address]Dr. Bhavani Camargo BAND % 3 % Normal 0-5 [facility] Comment on above: Performed By: #### C BCJERSON ####[facility] Pqlsknfvip[address] [place] [address]Dr. Yiroxi Camargo BASOM # 0.00 103/ul Normal 0.00-0.10 [facility] Comment on above: Performed By: #### C BCJERSON ####[facility] O[address]fgggen[address] [place], [place] [address]Dr. Bhavani Camargo BASOM % 0.0 % Critically low 0.2-2.0 [facility] Comment on above: Performed By: #### C BCJERSON ####[facility] Q[address]vwvrhs[address] [place], [place] [address]Dr. Bhavani Camargo BLAST # Normal [facility] Comment on above: Performed By: #### C OMID ####[facility] C[address]mbcswcpg[address] [place], [place] [address]Dr. Bhavani Camargo BLAST % Normal [facility] Comment on above: Performed By: #### C OMID ####[facility] [address]cxprjxo[address] [place], [place] [address]Dr. Bhavani Camargo CORRECTED WBC Normal 4.0-11.0 [facility] Comment on above: Performed By: #### C BCJERSON ####[facility] Ouunhwxzxo[address] [place] [address]Dr. Bhavani Camargo EOS # 0.00 103/ul Normal 0.00-0.70 [facility] Comment on above: Performed By: #### C BCJERSON ####[facility] Wehqybkwmf[address] [place] [address]Dr. Bhavani Camargo EOS% 0.0 % Critically low 0.9-7.0 [facility] Comment on above: Performed By: #### C BCJERSON ####[facility] Rdmkskkdfu4605 [place], [place] [address]Ni. Bhavani Camargo HCT 44.6 % Normal 36.0-48.0 [facility] Comment on above: Performed By: #### C OMID ####[facility] Ihdmqunygh1403 [place], [place] [address]By. Bhavani Camargo HGB 13.9 g/dl Normal 12.0-16.0 [facility] Comment on above: Performed By: #### C OMID ####[facility] Bjqqpjbukd6394 [place], [place] [address]Xt. Bhavani Camargo LYMPHM # 0.60 103/ul Critically low 1.20-3.80 [facility] Comment on above: Performed By: #### C OMID ####[facility] [address]fxllfgipx36[address] [place] [phone]. Bhavani Camargo LYMPHM% 2.0 % Critically low 20.5-60.0 [facility] Comment on above: Performed By: #### C OMID ####[facility] Csklbwakof7178 [place], [place] [address]Qy. Bhavani Camargo MCH 29.8 pg Normal 26.7-34.0 [facility] Comment on above: Performed By: #### C OMID ####[facility] Gobzimqlrf6513 [place], [place] [address]Cs. Bhavani Camargo MCHC 31.2 g/dl Normal 29.9-35.2 [facility] Comment on above: Performed By: #### C OMID ####[facility] Umlecgmbwq2890 [place], [place] [address]Mw. Bhavani Camargo MCV 95.7 fL Normal 81.0-99.0 [facility] Comment on above: Performed By: #### C OMID ####[facility] Evxochvqhc1508 [place], [place] [address]Ox. Bhavani Camargo METAMYELOCYTE # Normal [facility] Comment on above: Performed By: #### C OMID ####[facility] Wylivfjkzg3886 [place], [place] [address]Jk. Bhavani Camargo METAMYELOCYTE % Normal [facility] Comment on above: Performed By: #### C BCJERSON ####[facility] Fgycayimmu0241 [place], [place] [address]Kf. Bhavani Camargo MONOM# 0.60 103/ul Normal 0.30-0.80 [facility] Comment on above: Performed By: #### C BCJERSON ####[facility] Cmhosgfylx4247 [place], [place] [address]Zf. Bhavani Camargo MONOM% 2.0 % Normal 1.7-12.0 [facility] Comment on above: Performed By: #### C BCJERSON ####[facility] Jpfwjhgrvf0490 [place] [phone]. Bhavani Camargo MPV 9.7 fL Normal 9.5-13.5 [facility] Comment on above: Performed By: #### C OMID ####[facility] Rnyusyzbqt0921 [place] [phone]. Bhavani Camargo MYELOCYTE # Normal [facility] Comment on above: Performed By: #### C OMID ####[facility] Arbxmpucvi1671 [place], [place] [address]Vo. Bhavani Camargo MYELOCYTE % Normal [facility] Comment on above: Performed By: #### C OMID ####[facility] Uuvkichldf0475 [place] [phone]. Bhavani Camargo NRBC Normal [facility] Comment on above: Performed By: #### C OMID ####[facility] Pqmccqujtb3207 [place] [phone]. Bhavani Camargo PLT 436 103/ul Normal 150-450 [facility] Comment on above: Performed By: #### C OMID ####[facility] Ykxiqtdgwr7395 [place] [phone]. Bhavani Camargo RBC 4.66 106/ul Normal 4.20-5.40 [facility] Comment on above: Performed By: #### C OMID ####[facility] Ntxiqkzhsj5516 [place] [phone]. Bhavani Camargo RDW 15.2 % Critically high 11.0-15.0 [facility] Comment on above: Performed By: #### C BCMAN ####[facility] Tkogxksixk9122 [place] [phone]. Bhavani Camargo SEG # 28.09 103/ul Critically high 1.40-6.50 [facility] Comment on above: Performed By: #### C BCMAN ####[facility] Lvufbwtcce7656 [place] [phone]. Bhavani Camargo SEG % 93.0 % Critically high 43.0-75.0 [facility] Comment on above: Performed By: #### C BCMAN ####[facility] Jwaschpngy5786 [place] [phone]. Bhavani Camargo WBC 30.2 103/ul Critically high 4.0-11.0 [facility] Comment on above: Result Comment: test repeated critical value verified Performed By: #### C OMID ####[facility] Dhjfqefkxl9986 [place] [address]Dr. Bhavani Camargo CULTURE BLOODon 03-22-2022 Microscopic examination of blood, culture Culture Observations: NO GROWTH AT 5 DAYS. Normal [facility] Comment on above: Performed By: #### B LDCX2 ####[facility] Coctjcedfh[address] [place] [phone]. Bhavani Camargo Performed By: #### B LDCX1 ####[facility] Gvphmfbxgb5605 [place] [address]Dr. Bhavani Camargo Covid-19 PCR (CVDTB)on SARS-CoV-2 (COVID-19) RNA MATTHEW+probe Ql (Unsp spec) Not detected Normal NOT DETECTED [facility] Comment on above: Result Comment: When [...] for this test is supported by the [place] of Health and Human Service's declaration that [...] be used). Performed By: #### C VDTB ####[facility] E[address]xbpul[address] [place], [place] [address]Dr. Bhavani Camargo ER URINE PROFILEon 2 Bilirubin Ql (U) MODERATE Abnormal NEGATIVE [facility] Comment on above: Performed By: #### U MICRO, ERUR ####[facility] Em[address]vo[address] [place], [place] [address]Dr. Bhavani Camargo Clarity (U) CLEAR Normal CLEAR [facility] Comment on above: Performed By: #### U MICRO, ERUR ####[facility] [address] [place], [place] [address]Dr. Bhavani Camargo Color (U) YELLOW Normal YELLOW [facility] Comment on above: Performed By: #### U MICRO, ERUR ####[facility] [address] [place], [place] [address]Dr. Bhavani Camargo ERUAHD A micrscopic examination will be performed if indicated. Normal [facility] Comment on above: Performed By: #### U MICRO, ERUR ####[facility] [address] [place], [place] [address]Dr. Bhavani Camargo Glucose Ql (U) Negative Normal NEGATIVE [facility] Comment on above: Performed By: #### U MICRO, ERUR ####[facility] [address]wr[address]ortzg[address] [place], [place] [address]Dr. Bhavani Camargo Hemoglobin Ql (U) TRACE-INTACT Abnormal NEGATIVE [facility] Comment on above: Performed By: #### U MICRO, ERUR ####[facility] Fr[address]dfmbk[address] [place], [place] [address]Dr. Bhavani Camargo Ketones Ql (U) Negative Normal NEGATIVE [facility] Comment on above: Performed By: #### U MICRO, ERUR ####[facility] [address] [place] [address]Dr. Bhavani Camargo LEUKOCYTES LARGE Abnormal NEGATIVE [facility] Comment on above: Performed By: #### U MICRO, ERUR ####[facility] [address] [place] [address]Dr. Bhavani Camargo Nitrite Ql (U) Negative Normal NEGATIVE [facility] Comment on above: Performed By: #### U MICRO, ERUR ####[facility] [address]xc[address] [place] [address]Dr. Bhavani Camargo pH (U) 5.5 [pH] Normal 5-9 [facility] Comment on above: Performed By: #### U MICRO, ERUR ####[facility] [address]tuice[address] [place], [place] [address]Dr. Bhavani Camargo Protein (U) [Mass/Vol] 30 mg/dL Abnormal NEGATIVE/ TRACE [facility] Comment on above: Performed By: #### U MICRO, ERUR ####[facility] [address] [place], [place] [address]Dr. Bhavani Camargo SPEC GRAVITY 1.020 Normal 1.005-<=1.[address] [place] [address] Comment on above: Performed By: #### U MICRO, ERUR ####[facility] [address]zmd[address] [place], [place] [address]Dr. Bhavani Camargo UR MICRO IND INDICATED Normal [facility] Comment on above: Performed By: #### U MICRO, ERUR ####[facility] Zmyjgb[address]ose[address] [place], [place] [address]Dr. Bhavani Camargo Urobilinogen Qn (U) 4 {Ridge'U}/dL Abnormal 0.2 - 1.0 [facility] Comment on above: Performed By: #### U MICRO, ERUR ####[facility] A[address]ocmjnay[address] [place], [place] [address]Dr. Bhavani Camargo LACTATE/LACTIC ACIDon 2021 Lactate [Moles/Vol] 0.9 mmol/L Normal 0.4-2.0 [facility] Comment on above: Performed By: #### L ACT ####[facility] [address]pt[address] [place] [address]Dr. Bhavani Camargo Lactate [Moles/Vol] 1.2 mmol/L Normal 0.4-2.0 [facility] Comment on above: Performed By: #### L ACT ####[facility] [address]izwzy[address] [place] [address]Dr. Bhavani Camargo POINT OF CARE GLUCOSEon Glucose [Mass/Vol] 188 mg/dL Critically high 74-106 [facility] Comment on above: Performed By: #### P OCGLUC ####[facility] Bmklqbabwe[address] [place], [place] [address]Dr. Bhavani Camargo PROF 14(COMP METB)on 022 Albumin [Mass/Vol] 2.9 g/dL Critically low 3.4-5.0 [facility] Comment on above: Performed By: #### C MP ####[facility] Qyrsseeyjm[address] [place], [place] [address]Dr. Bhavani Camargo Albumin/Globulin [Mass ratio] 0.7 {ratio} Normal [facility] Comment on above: Performed By: #### C MP ####[facility] R[address]cxqu[address] [place], [place] [address]Dr. Bhavani Camargo ALP [Catalytic activity/Vol] 372 U/L Critically high 46-116 [facility] Comment on above: Performed By: #### C MP ####[facility] [address]fs[address] [place], [place] [address]Dr. Bhavani Camargo ALT [Catalytic activity/Vol] 402 U/L Critically high 14-59 [facility] Comment on above: Performed By: #### C MP ####[facility] Umjkopeyet[address] [place], [place] [address]Dr. Bhavani Camargo Anion gap [Moles/Vol] 10.6 mmol/L Normal [facility] Comment on above: Performed By: #### C MP ####[facility] [address]zktp[address] [place], [place] [address]Dr. Bhavani Camargo AST [Catalytic activity/Vol] 346 U/L Critically high 15-37 [facility] Comment on above: Performed By: #### C MP ####[facility] [address]ex[address] [place] [address]Dr. Jayceeroxi Laurel Bilirubin [Mass/Vol] 2.8 mg/dL Critically high 0.2-1.0 [facility] Comment on above: Performed By: #### C MP ####[facility] J[address] [place], [place] [address]Dr. Bhavani Camargo Calcium [Mass/Vol] 7.9 mg/dL Critically low 8.5-10.1 [facility] Comment on above: Performed By: #### C MP ####[facility] [address]xcsfbeq[address] [place], [place] [address]Dr. Bhavani Camargo Chloride [Moles/Vol] 106 mmol/L Normal 98-107 [facility] Comment on above: Performed By: #### C MP ####[facility] Iwygnwprmg[address] [place], [place] [address]Dr. Bhavani Camargo CO2 [Moles/Vol] 23.5 mmol/L Normal 21.0-32.0 [facility] Comment on above: Performed By: #### C MP ####[facility] Vxadeheicu[address] [place], [place] [address]Dr. Bhavani Camargo Creatinine [Mass/Vol] 1.57 mg/dL Critically high 0.55-1.02 [facility] Comment on above: Performed By: #### C MP ####[facility] U[address]izydedc[address] [place], [place] [address]Dr. Bhavani Camargo EGFR-AF MALAYSIAN 38 mL/min/1.73m2 Critically low >=60 [facility] Comment on above: Performed By: #### C MP ####[facility] Zboisxwxqt[address] [place], [place] [address]Dr. Bhavani Camargo EGFR-NON AF MALAYSIAN 32 mL/min/1.73m2 Critically low >=60 [facility] Comment on above: Performed By: #### C MP ####[facility] Knkgoncoti[address] [place], [place] [address]Dr. Bhavani Camargo Globulin (S) [Mass/Vol] 4.0 g/dL Normal [facility] Comment on above: Performed By: #### C MP ####[facility] Xfwrgnqvfy[address] [place], [place] [address]Dr. Bhavani Camargo Glucose [Mass/Vol] 151 mg/dL Critically high 74-106 [facility] Comment on above: Performed By: #### C MP ####[facility] I[address]lsxarwg[address] [place], [place] [address]Dr. Jayceeroxi Camargo Potassium [Moles/Vol] 4.1 mmol/L Normal 3.5-5.1 [facility] Comment on above: Performed By: #### C MP ####[facility] Y[address]pnxcdkku[address] [place], [place] [address]Dr. Jayceeroxi Camargo Protein [Mass/Vol] 6.9 g/dL Normal 6.4-8.2 [facility] Comment on above: Performed By: #### C MP ####[facility] Zvgmrvmrss[address] [place], [place] [address]Dr. Bhavani Laurel Sodium [Moles/Vol] 136 mmol/L Normal 136-145 [facility] Comment on above: Performed By: #### C MP ####[facility] Jpjwwwiseb[address] [place], [place] [address]Dr. Jayceeroxi Laurel Urea nitrogen [Mass/Vol] 23.0 mg/dL Critically high 7.0-18.0 [facility] Comment on above: Performed By: #### C MP ####[facility] [address] [place], [place] [address]Dr. Bhavani Camargo Urea nitrogen/Creatinine [Mass ratio] 14.6 mg/mg Normal [facility] Comment on above: Performed By: #### C MP ####[facility] [address]siwmw[address] [place], [place] [address]Dr. Bhavani Camargo URINE MICROSCOPIC ONLYon BACTERIA LARGE Abnormal NONE SEEN [facility] Comment on above: Performed By: #### U MICRO, ERUR ####[facility] Setbiwbuni[address] [place], [place] [address]Dr. Bhavani Camargo Bacteria identified Cx Nom (U) INDICATED Normal [facility] Comment on above: Performed By: #### U MICRO, ERUR ####[facility] [address] [place] [address]Dr. Bhavani Camargo CAST NONE SEEN Normal NONE SEEN [facility] Comment on above: Performed By: #### U MICRO, ERUR ####[facility] [address] [place] [address]Dr. Bhavani Camargo Crystals LM Nom (Urine sed) NONE SEEN Normal NONE SEEN [facility] Comment on above: Performed By: #### U MICRO, ERUR ####[facility] [address] [place] [address]Dr. Bhavani Camargo Epithelial cells LM Ql (Urine sed) FEW Abnormal NONE SEEN /RARE [facility] Comment on above: Performed By: #### U MICRO, ERUR ####[facility] [address] [place] [address]Dr. Bhavani Camargo MUCOUS NONE SEEN Normal NONE SEEN [facility] Comment on above: Performed By: #### U MICRO, ERUR ####[facility] [address]soe[address] [place] [address]Dr. Bhavani Camargo RBC 2-5 Abnormal 0-2 [facility] Comment on above: Performed By: #### U MICRO, ERUR ####[facility] On[address]hgz[address] [place] [address]Dr. Bhavani Camargo WBC (U) [#/Vol] /uL Abnormal NONE SEEN [facility] Comment on above: Performed By: #### U MICRO, ERUR ####[facility] Tay[address] [place], [place] [address]Dr. Bhavani Camargo US SINGLE QUAD RT UPPERon US SINGLE QUAD RT UPPER Normal [facility] XR CHEST 1 Von 03-22-2022 XR CHEST 1 V Normal [facility] CBC AND ELECTRONIC DIFFon Basophils (Bld) [#/Vol] 0.23 10*3/uL High 0.00-0.15 [facility] Comment on above: Performed By: #### R ETIC, [id number] #### [facility] (DEFAULT) [address] [place] [address] Basophils/100 WBC (Bld) 0.9 % Normal [facility] Comment on above: Performed By: #### R ETIC, [id number] #### [facility] (DEFAULT) [address] [place] [address] DIFF STATUS Electronic Differential Normal [facility] Comment on above: Performed By: #### R ETIC, [id number] #### [facility] (DEFAULT) [address] [place] [address]249 Eosinophils (Bld) [#/Vol] 10*3/uL Normal 0.00-0.42 [facility] Comment on above: Performed By: #### R ETIC, [id number] #### [facility] (DEFAULT) [address] [place] [address] Eosinophils/100 WBC (Bld) 0.0 % Normal [facility] Comment on above: Performed By: #### R ETIC, [id number] #### [facility] (DEFAULT) [address] [place] [address] Hematocrit (Bld) [Volume fraction] 52.1 % High 34.9-44.3 [facility] Comment on above: Performed By: #### R ETIC, [id number] #### [facility] (DEFAULT) [address] [place] [address] Hemoglobin (Bld) [Mass/Vol] 16.8 g/dL High 11.4-15.2 [facility] Comment on above: Performed By: #### R ETIC, [id number] #### [facility] (DEFAULT) [address] [place] [address]8945 Immature Grans % 1.3 % Normal [facility] Comment on above: Performed By: #### R ETIC, [id number] #### [facility] (DEFAULT) [address] [place] [address] Immature Grans Absolute 0.34 K/uL High <=0.09 [facility] Comment on above: Performed By: #### R ETIC, [id number] #### [facility] (DEFAULT) [address] [address] Lymphocytes (Bld) [#/Vol] 1.24 10*3/uL Normal 1.16-3.51 [facility] Comment on above: Performed By: #### R ETIC, [id number] #### [facility] (DEFAULT) [address] [address] Lymphocytes/100 WBC (Bld) 4.9 % Normal [facility] Comment on above: Performed By: #### R ETIC, [id number] #### [facility] (DEFAULT) [address] [address] MCV (RBC) [Entitic vol] 97.4 fL Normal 79.6-97.7 [facility] Comment on above: Performed By: #### R ETIC, [id number] #### [facility] (DEFAULT) [address] [address] Mean Cell Hgb 31.4 pg Normal 25.9-33.9 [facility] Comment on above: Performed By: #### R ETIC, [id number] #### [facility] (DEFAULT) [address] [address] Mean Cell Hgb Conc 32.2 g/dL Normal 31.4-35.9 [facility] Comment on above: Performed By: #### R ETIC, [id number] #### [facility] (DEFAULT) [address] [address] Monocytes (Bld) [#/Vol] 0.47 10*3/uL Normal 0.22-0.87 [facility] Comment on above: Performed By: #### R ETIC, [id number] #### [facility] (DEFAULT) [address] [address] Monocytes/100 WBC (Bld) 1.9 % Normal [facility] Comment on above: Performed By: #### R ETIC, [id number] #### [facility] (DEFAULT) [address] [place] [address] 36024 Nucleated RBC 0.1 /100 WBC Normal <=0.2 [facility] Comment on above: Performed By: #### R ETIC, [id number] #### [facility] (DEFAULT) [address] [place] [address] 89154 Platelet mean volume (Bld) [Entitic vol] 11.1 fL Normal 8.5-12.2 [facility] Comment on above: Performed By: #### R ETIC, [id number] #### [facility] (DEFAULT) [address] [place] [address] 65770 Platelets (Bld) [#/Vol] 174 10*3/uL Normal 150-393 [facility] Comment on above: Performed By: #### R ETIC, [id number] #### [facility] (DEFAULT) [address] [place] [address] 07817 RBC (Bld) [#/Vol] 5.35 10*6/uL High 3.91-5.04 [facility] Comment on above: Performed By: #### R ETIC, [id number] #### [facility] (DEFAULT) [address] [place] [address] 05589 RBC Distribution 16.3 % High 10.8-14.9 [facility] Comment on above: Performed By: #### R ETIC, [id number] #### [facility] (DEFAULT) [address] [place] [address] 16967 Segs + Bands Auto 91.0 % Normal [facility] Comment on above: Performed By: #### R ETIC, [id number] #### [facility] (DEFAULT) [address] [place] [address]891 Segs + Bands,Absolute Auto 23.08 K/uL High 1.64-7.28 [facility] Comment on above: Performed By: #### R ETIC, [id number] #### [facility] (DEFAULT) [address] [place] [address] 92550 WBC (Bld) [#/Vol] 25.37 10*3/uL High 3.99-11.19 [facility] Comment on above: Performed By: #### R ETIC, [id number] #### [facility] (DEFAULT) [address] [place] [address]644 CMPN WITHOUT GLUCOSEon 11-02 Albumin [Mass/Vol] 4.3 g/dL Normal 3.5-5.0 [facility] Comment on above: Performed By: #### C MPNG #### [facility] (DEFAULT) [address] [place] [address] 36370 ALP [Catalytic activity/Vol] 80 U/L Normal 32-126 [facility] Comment on above: Performed By: #### C MPNG #### [facility] (DEFAULT) [address] [place] [address] 38694 ALT [Catalytic activity/Vol] 8 U/L Low 9-48 [facility] Comment on above: Performed By: #### C MPNG #### [facility] (DEFAULT) [address] [place] [address] 65344 Anion gap [Moles/Vol] 13 mmol/L Normal 7-17 [facility] Comment on above: Performed By: #### C MPNG #### [facility] (DEFAULT) [address] [place] [address] 59278 AST [Catalytic activity/Vol] 14 U/L Normal 14-40 [facility] Comment on above: Performed By: #### C MPNG #### [facility] (DEFAULT) [address] [place] [address] 08094 Bilirubin [Mass/Vol] 0.5 mg/dL Normal <1.5 [facility] Comment on above: Performed By: #### C MPNG #### [facility] (DEFAULT) [address] [place] [address] 17066 Calcium [Mass/Vol] 9.1 mg/dL Normal 8.6-10.5 [facility] Comment on above: Performed By: #### C MPNG #### [facility] (DEFAULT) [address] [address] Chloride [Moles/Vol] 108 mmol/L Normal 98-108 [facility] Comment on above: Performed By: #### C MPNG #### [facility] (DEFAULT) [address] [address] CO2 [Moles/Vol] 21 mmol/L Low 22-30 [facility] Comment on above: Performed By: #### C MPNG #### [facility] (DEFAULT) [address] [address] Creatinine [Mass/Vol] 1.36 mg/dL High 0.50-1.20 [facility] Comment on above: Performed By: #### C MPNG #### [facility] (DEFAULT) [address] [place] [address]45 EST GFR, 45 mL/min/1.73sqM Low >=60 [facility] Comment on above: Performed By: #### C MPNG #### [facility] (DEFAULT) [address] [address] EST GFR,Non 37 mL/min/1.73sqM Low >=60 [facility] Comment on above: Performed By: #### C MPNG #### [facility] (DEFAULT) [address] [address] Potassium [Moles/Vol] 5.0 mmol/L Normal 3.5-5.0 [facility] Comment on above: Performed By: #### C MPNG #### [facility] (DEFAULT) [address] [address] Protein [Mass/Vol] 7.6 g/dL Normal 6.4-8.3 [facility] Comment on above: Performed By: #### C MPNG #### [facility] (DEFAULT) [address] [place] [address] 16149 Sodium [Moles/Vol] 137 mmol/L Normal 133-143 [facility] Comment on above: Performed By: #### C MPNG #### [facility] (DEFAULT) [address] [place] [address] 06059 Urea nitrogen [Mass/Vol] 42 mg/dL High 7- [facility] Comment on above: Performed By: #### C MPNG #### [facility] (DEFAULT) [address] [place] [address] 14535 Urea nitrogen/Creatinine [Mass ratio] 31 mg/mg Normal [facility] Comment on above: Performed By: #### C MPNG #### [facility] (DEFAULT) [address] [place] [address] 05965 FERRITINon 11-02-2021 Ferritin [Mass/Vol] 19.2 ng/mL Normal 10.0-291.0 [facility] Comment on above: Performed By: #### F ERIB #### [facility] (DEFAULT) [address] [place] [address] 09071 RETICULOCYTESon 11-02-2021 Retic Absolute 0.1177 M/uL High 0.0324-0.114 2 [facility] Comment on above: Performed By: #### R ETIC, [id number] #### [facility] (DEFAULT) [address] [place] [address]278 Retic Count 2.20 % Normal 0.74-2.54 [facility] Comment on above: Performed By: #### R ETIC, [id number] #### [facility] (DEFAULT) [address] [place] [address]324 CBC AND ELECTRONIC DIFFon Basophils (Bld) [#/Vol] 0.20 10*3/uL High 0.00-0.15 [facility] Comment on above: Performed By: #### L [id number] #### [facility] (DEFAULT) [address] [place] [address] 70149 Basophils/100 WBC (Bld) 0.9 % Normal [facility] Comment on above: Performed By: #### L [id number] #### [facility] (DEFAULT) [address] [place] [address] 21791 DIFF STATUS Electronic Differential Normal [facility] Comment on above: Performed By: #### L [id number] #### [facility] (DEFAULT) [address] [place] [address] 04465 Eosinophils (Bld) [#/Vol] 10*3/uL Normal 0.00-0.42 [facility] Comment on above: Performed By: #### L [id number] #### [facility] (DEFAULT) [address] [address] Eosinophils/100 WBC (Bld) 0.1 % Normal [facility] Comment on above: Performed By: #### L [id number] #### [facility] (DEFAULT) [address] [place] [address] 21149 Hematocrit (Bld) [Volume fraction] 47.4 % High 34.9-44.3 [facility] Comment on above: Performed By: #### L [id number] #### [facility] (DEFAULT) [address] [address] Hemoglobin (Bld) [Mass/Vol] 15.4 g/dL High 11.4-15.2 [facility] Comment on above: Performed By: #### L [id number] #### [facility] (DEFAULT) [address] [address] Immature Grans % 3.0 % Normal [facility] Comment on above: Performed By: #### L [id number] #### [facility] (DEFAULT) [address] [address] Immature Grans Absolute 0.67 K/uL High <=0.09 [facility] Comment on above: Performed By: #### L [id number] #### [facility] (DEFAULT) [address] [address] Lymphocytes (Bld) [#/Vol] 1.12 10*3/uL Low 1.16-3.51 [facility] Comment on above: Performed By: #### L [id number] #### [facility] (DEFAULT) [address] [address] Lymphocytes/100 WBC (Bld) 5.0 % Normal [facility] Comment on above: Performed By: #### L [id number] #### [facility] (DEFAULT) [address] [address] MCV (RBC) [Entitic vol] 101.5 fL High 79.6-97.7 [facility] Comment on above: Performed By: #### L [id number] #### [facility] (DEFAULT) [address] [address] Mean Cell Hgb 33.0 pg Normal 25.9-33.9 [facility] Comment on above: Performed By: #### L [id number] #### [facility] (DEFAULT) [address] [address] Mean Cell Hgb Conc 32.5 g/dL Normal 31.4-35.9 [facility] Comment on above: Performed By: #### L [id number] #### [facility] (DEFAULT) [address] [address] Monocytes (Bld) [#/Vol] 0.51 10*3/uL Normal 0.22-0.87 [facility] Comment on above: Performed By: #### L [id number] #### [facility] (DEFAULT) [address] [address] Monocytes/100 WBC (Bld) 2.3 % Normal [facility] Comment on above: Performed By: #### L [id number] #### [facility] (DEFAULT) [address] [address] Nucleated RBC 0.1 /100 WBC Normal <=0.2 [facility] Comment on above: Performed By: #### L [id number] #### [facility] (DEFAULT) [address] [place] [address]326 Platelet mean volume (Bld) [Entitic vol] 10.4 fL Normal 8.5-12.2 [facility] Comment on above: Performed By: #### L [id number] #### [facility] (DEFAULT) [address] [place] [address] 24882 Platelets (Bld) [#/Vol] 289 10*3/uL Normal 150-393 [facility] Comment on above: Performed By: #### L [id number] #### [facility] (DEFAULT) [address] [place] [address] 49735 RBC (Bld) [#/Vol] 4.67 10*6/uL Normal 3.91-5.04 [facility] Comment on above: Performed By: #### L [id number] #### [facility] (DEFAULT) [address] [place] [address] 78525 RBC Distribution 14.8 % Normal 10.8-14.9 [facility] Comment on above: Performed By: #### L [id number] #### [facility] (DEFAULT) [address] [place] [address] 11545 Segs + Bands Auto 88.7 % Normal [facility] Comment on above: Performed By: #### L [id number] #### [facility] [facility] (DEFAULT) [address] [place] [id number] Segs + Bands,Absolute Auto 20.03 K/uL High 1.64-7.28 [facility] Comment on above: Performed By: #### L [id number] #### [facility] (DEFAULT) [address] [place] [address] WBC (Bld) [#/Vol] 22.56 10*3/uL High 3.99-11.19 [facility] Comment on above: Performed By: #### L [id number] #### [facility] (DEFAULT) [address] [place] [address] IMMUNOPHENOTYPING,PERIPH BLO ODon 08-17-2021 BKR DX CODE Use Ordering Normal [facility] Comment on above: Order Comment: IMMUN OPHENOTYPING DIAGNOSIS PATIENT NAME: MARÍA ELENA TAFOYA : 1940 ACCN#: [id number] REVIEWED BY: LAURA Moreno [id number] SAMPLE TYPE: Peripheral Blood LABORATORY INTERPRETATION: There [...] % are B cells (CD19+) with a [place]:Lambda ratio of 2:2 , 73.5 % are T cells (CD3+) with a CD4:CD8 ratio of 2.2 and an absolute CD4+/CD3+ count of 549 ABS/mm3 and 23.7 % are NK cells (positive for CD56 and/or CD16 and negative for CD3). ==== MARKER DESCRIPTION LYM REG% ABS/mm3 NORMAL % NML ABS ==== ABSOLUTE LYMPHOCYTE COUNT [phone] ==== CD19+ B CELL 4.4 49 2.0-21.0 [...] determined The Flow Cytometry Laboratory at [facility]. It has not been cleared or approved by the FDA. This laboratory is certified under the Clinical Laboratory Improvement Amendments (CLIA) as qualified to perform high complexity clinical laboratory testing. This test is used for clinical purposes. It should not be regarded as investigational or for research. The [facility] Flow Cytometry Laboratory lower limit of CLL MRD detection is 0.1% of the gated lymphocytes. Performed By: #### P BIPP #### [facility] (DEFAULT) [address] [place] [address] Flow Interpretation See Comment Normal [facility] Comment on above: Order Comment: IMMUN OPHENOTYPING DIAGNOSIS PATIENT NAME: MARÍA ELENA TAFOYA : 1940 ACCN#: [id number] REVIEWED BY: LAURA Moreno [id number] SAMPLE TYPE: Peripheral Blood LABORATORY INTERPRETATION: There [...] % are B cells (CD19+) with a [place]:Lambda ratio of 2:2 , 73.5 % are T cells (CD3+) with a CD4:CD8 ratio of 2.2 and an absolute CD4+/CD3+ count of 549 ABS/mm3 and 23.7 % are NK cells (positive for CD56 and/or CD16 and negative for CD3). ==== MARKER DESCRIPTION LYM REG% ABS/mm3 NORMAL % NML ABS ==== ABSOLUTE LYMPHOCYTE COUNT [phone] ==== CD19+ B CELL 4.4 49 2.0-21.0 [...] determined The Flow Cytometry Laboratory at [facility]. It has not been cleared or approved by the FDA. This laboratory is certified under the Clinical Laboratory Improvement Amendments (CLIA) as qualified to perform high complexity clinical laboratory testing. This test is used for clinical purposes. It should not be regarded as investigational or for research. The [facility] Flow Cytometry Laboratory lower limit of CLL MRD detection is 0.1% of the gated lymphocytes. Performed By: #### P BIPP #### [facility] ([facility]) [address] [place] [address] Flow Interpreted by: Efrem Charlton MD [facility] Comment on above: Order Comment: IMMUN OPHENOTYPING DIAGNOSIS PATIENT NAME: MARÍA ELENA TAFOYA : 1940 ACCN#: [id number] REVIEWED BY: LAURA Moreno [id number] SAMPLE TYPE: Peripheral Blood LABORATORY INTERPRETATION: There [...] % are B cells (CD19+) with a [place]:Lambda ratio of 2:2 , 73.5 % are T cells (CD3+) with a CD4:CD8 ratio of 2.2 and an absolute CD4+/CD3+ count of 549 ABS/mm3 and 23.7 % are NK cells (positive for CD56 and/or CD16 and negative for CD3). ==== MARKER DESCRIPTION LYM REG% ABS/mm3 NORMAL % NML ABS ==== ABSOLUTE LYMPHOCYTE COUNT [phone] ==== CD19+ B CELL 4.4 49 2.0-21.0 [...] determined The Flow Cytometry Laboratory at [facility]. It has not been cleared or approved by the FDA. This laboratory is certified under the Clinical Laboratory Improvement Amendments (CLIA) as qualified to perform high complexity clinical laboratory testing. This test is used for clinical purposes. It should not be regarded as investigational or for research. The [facility] Flow Cytometry Laboratory lower limit of CLL MRD detection is 0.1% of the gated lymphocytes. Performed By: #### P BIPP #### [facility] (DEFAULT) [address] [address] [id number] MUTATION DETECTION , BLOODon 08-17-2021 Receiving Status Accessioned in Lab Normal [facility] Comment on above: Performed By: #### J AK2B #### [facility] (DEFAULT) [address] [address] Performed By: #### B CRSCR #### [facility] (DEFAULT) [address] [address] CBC with Differentialon 01-17 Basophils (Bld) [#/Vol] 0.20 thou/mcL Normal 0.00-0.20 [facility] Comment on above: Performed By: #### 5 7021-8 #### [facility] [address] [place] [address] Basophils/100 WBC (Bld) 0.9 % Normal 0.0-2.0 [facility] Comment on above: Performed By: #### 5 7021-8 #### [facility] [address] [place] [address] Eosinophils (Bld) [#/Vol] 0.00 thou/mcL Normal 0.00-0.70 [facility] Comment on above: Performed By: #### 5 7021-8 #### [facility] [address] [place] [address] Eosinophils/100 WBC (Bld) 0.1 % Normal 0.0-7.0 [facility] Comment on above: Performed By: #### 5 7021-8 #### [facility] [address] [place] [address] Erythrocyte distribution width (RBC) [Entitic vol] 17.1 % High 11.0-14.8 [facility] Comment on above: Performed By: #### 5 7021-8 #### [facility] [address] [place] [address] Hematocrit (Bld) [Volume fraction] 36.3 % Normal 35.0-45.0 [facility] Comment on above: Performed By: #### 5 7021-8 #### [facility] [address] [place] [address] Hemoglobin (Bld) [Mass/Vol] 11.8 g/dL Low 12.0-16.0 [facility] Comment on above: Performed By: #### 5 7021-8 #### [facility] [address] [place] [address] Lymphocytes (Bld) [#/Vol] 1.40 thou/mcL Normal 1.00-4.80 [facility] Comment on above: Performed By: #### 5 7021-8 #### [address] [address] Lymphocytes/100 WBC (Bld) 7.1 % Low 22.0-44.0 [facility] Comment on above: Performed By: #### 5 7021-8 #### [address] [address] MCH (RBC) [Entitic mass] 33.0 Picograms Normal 27.0-34.0 [facility] Comment on above: Performed By: #### 5 7021-8 #### [facility] [address] [place] [address] MCHC (RBC) [Mass/Vol] 32.5 g/dL Normal 32.0-36.0 [facility] Comment on above: Performed By: #### 5 7021-8 #### [facility] [address] [place] [address] MCV (RBC) [Entitic vol] 101.7 fL High 80.0-97.0 [facility] Comment on above: Performed By: #### 5 7021-8 #### [facility] [address] [place] [address] Monocytes (Bld) [#/Vol] 0.50 thou/mcL Normal 0.00-0.90 [facility] Comment on above: Performed By: #### 5 7021-8 #### [facility] [address] [place] [address] Monocytes/100 WBC (Bld) 2.7 % Normal 0.0-12.0 [facility] Comment on above: Performed By: #### 5 7021-8 #### [facility] [address] [place] [address] Neutrophils (Bld) [#/Vol] 18.10 thou/mcL High 1.80-7.70 [facility] Comment on above: Performed By: #### 5 7021-8 #### [address] [address] Neutrophils/100 WBC (Bld) 89.2 % High 40.0-70.0 [facility] Comment on above: Performed By: #### 5 7021-8 #### [address] [address] Platelet mean volume (Bld) [Entitic vol] 8.2 fL Normal 6.2-12.1 [facility] Comment on above: Performed By: #### 5 7021-8 #### [address] [address] Platelets (Bld) [#/Vol] 355 thou/mcL Normal 142-424 [facility] Comment on above: Performed By: #### 5 7021-8 #### [address] [address] RBC (Bld) [#/Vol] 3.57 million/mcL Low 3.80-5.10 [facility] Comment on above: Performed By: #### 5 7021-8 #### [address] [address] WBC (Bld) [#/Vol] 20.3 thou/mcL High 4.6-10.2 [facility] Comment on above: Performed By: #### 5 7021-8 #### [facility] [address] [place] [address] Ammoniaon 09-27-2020 Ammonia (P) [Mass/Vol] 21 umol/L Normal 9-30 [facility] Comment on above: Order Comment: Items in this order include: Ammonia Testing Performed By: [facility] [address] [place] [address]. [place] [address] Dr. Donnie Jean, Television Journalist Items in this order include: Ammonia Testing Performed By: [facility] [address] [place] [address]. [place] [id number] Dr. Donnie Jean, Television Journalist Performed By: #### C 709 #### [facility], [facility]. [address] [place] [address] [address] [place] [address] B12/Folateon 09-27-2020 Cobalamin (Vitamin B12) [Mass/Vol] 683 pg/mL Normal 239-931 [facility] Comment on above: Order Comment: Items in this order include: Culture, Urine Testing Performed By: [facility] [address] [place], [place] [id number] Dr. Donnie Jean, Television Journalist Result Comment: Plea se note: Over the counter high dose supplements of Biotin that are 20 to 300 times greater than the adequate daily intake of 30 mcg/day for adults may cause a bias of 10% or more to be observed in the measured Vitamin B-12 concentrations. Performed By: #### C 734 #### [facility] [address] [place] [address] [address] [place] [id number] Folate 9.26 ng/mL Normal 2.80-20.00 [facility] Comment on above: Order Comment: Items in this order include: Culture, Urine Testing Performed By: [facility] [address] [place] [address]. [place] [address] Dr. Donnie Jean, Television Journalist Result Comment: Plea se note: Over the counter high dose supplements of Biotin that are 20 to 300 times greater than the adequate daily intake of 30 mcg/day for adults may cause a bias of 10% or more to be observed in the measured Folate concentrations. Performed By: #### C 734 #### [facility] [address] [place] [address] [place] [address] CBC with differentialon 09-18 Erythrocyte distribution width (RBC) [Ratio] 15.4 % Normal 11.5-15.5 [facility] Comment on above: Order Comment: Items in this order include: Culture, Urine Testing Performed By: [facility] [address] [place] [address]. [place] [address] Dr. Donnie Jean, Television Journalist Performed By: #### C 734 #### [facility] [address] [place] [address] [place] [address] Hematocrit (Bld) [Volume fraction] 39.8 % Normal 37.0-47.0 [facility] Comment on above: Order Comment: Items in this order include: Culture, Urine Testing Performed By: [facility] [address] [place] [address]. [place] [address] Dr. Donnie Jean, Television Journalist Performed By: #### C 734 #### [facility] [address] [place] [address] [place] [address] Hemoglobin (Bld) [Mass/Vol] 12.3 g/dL Normal 11.5-15.5 [facility] Comment on above: Order Comment: Items in this order include: Culture, Urine Testing Performed By: [facility] [address] [place] [address]. [place] [address] Dr. Donnie Jean, Television Journalist Performed By: #### C 734 #### [facility] [address] [place] [address] [place] [address] MCH (RBC) [Entitic mass] 34.2 pg High 27.0-31.0 [facility] Comment on above: Order Comment: Items in this order include: Culture, Urine Testing Performed By: [facility] [address] [place] [address]. [place] [address] Dr. Donnie Jean, Television Journalist Performed By: #### C 734 #### [facility] [address] [place] [address] [place] [address] MCHC (RBC) [Mass/Vol] 30.9 g/dL Low 32.0-36.0 [facility] Comment on above: Order Comment: Items in this order include: Culture, Urine Testing Performed By: [facility] [address] [place] [address]. [place] [address] Dr. Donnie Jean, Television Journalist Performed By: #### C 734 #### [facility] [address] [place] [address] [address] [place] [address] MCV (RBC) [Entitic vol] 110.6 fL High 78.0-100.0 [facility] Comment on above: Order Comment: Items in this order include: Culture, Urine Testing Performed By: [facility] [address] [place] [address]. [place] [address] Dr. Donnie Jean, Television Journalist Performed By: #### C 734 #### [facility] [address] [place] [address] [place] [address] Platelet mean volume (Bld) [Entitic vol] 10.2 fL Normal 8.9-12.6 [facility] Comment on above: Order Comment: Items in this order include: Culture, Urine Testing Performed By: [facility] [address] [place] [address]. [place] [address] Dr. Donnie Jean, Television Journalist Performed By: #### C 734 #### [facility] [address] [place] [address] [address] [place] [address] Platelets (Bld) [#/Vol] 423 K CUMM High 130-400 [facility] Comment on above: Order Comment: Items in this order include: Culture, Urine Testing Performed By: [facility] [address] [place] [address]. [place] [address] Dr. Donnie Jean, Television Journalist Performed By: #### C 734 #### [facility] [address] [place] [address] [address] [place] [address] RBC (Bld) [#/Vol] 3.60 M CUMM Low 3.80-5.10 [facility] Comment on above: Order Comment: Items in this order include: Culture, Urine Testing Performed By: [facility] [address] [place] [address]. [place] [address] Dr. Donnie Jean, Television Journalist Performed By: #### C 734 #### [facility] [address] [place] [address] [place] [address] WBC (Bld) [#/Vol] 28.2 K CUMM Critically high 3.8-10.6 [facility] Comment on above: Order Comment: Items in this order include: Culture, Urine Testing Performed By: [facility] [address] [place] [address]. [place] [address] Dr. Donnie Jean, Television Journalist Performed By: #### C 734 #### [facility], [facility]. [address] [place] [address] [place] [address] Comprehensive Metabolic Pane [facility] 09-27-2020 Albumin [Mass/Vol] 4.4 g/dL Normal 3.5-5.0 [facility] Comment on above: Order Comment: Items in this order include: Comprehensive Metabolic Panel, CBC with differential, TSH w/ reflex to FT4, B12/Folate, , , , Manual Differential if Indicated, Slide Scan, MicroscopeTesting Performed By: [facility] [address] [place] [address]. [place] [address] Dr. Donnie Jean, Television Journalist Performed By: #### C 709 #### [facility] [address] [place] [address] [address] [place] [address] Alk Phos 68 U/L Normal 23-159 [facility] Comment on above: Order Comment: Items in this order include: Comprehensive Metabolic Panel, CBC with differential, TSH w/ reflex to FT4, B12/Folate, , , , Manual Differential if Indicated, Slide Scan, MicroscopeTesting Performed By: [facility] [address] [place] [address]. [place] [address] Dr. Donnie Jean, Television Journalist Performed By: #### C 709 #### [facility] [address] [place] [address] [address] [place] [address] ALT [Catalytic activity/Vol] 15 U/L Normal 0-38 [facility] Comment on above: Order Comment: Items in this order include: Comprehensive Metabolic Panel, CBC with differential, TSH w/ reflex to FT4, B12/Folate, , , , Manual Differential if Indicated, Slide Scan, MicroscopeTesting Performed By: [facility] [address] [place] [address]. [place] [address] Dr. Donnie Jean, Television Journalist Performed By: #### C 709 #### [facility] [address] [place] [address] [address] [place] [address] AST [Catalytic activity/Vol] 21 U/L Normal 11-43 [facility] Comment on above: Order Comment: Items in this order include: Comprehensive Metabolic Panel, CBC with differential, TSH w/ reflex to FT4, B12/Folate, , , , Manual Differential if Indicated, Slide Scan, MicroscopeTesting Performed By: [facility] [address] [place] [address] [address] [address] Donnie Jean, Television Journalist Performed By: #### Jany 709 #### [facility], [facility]. [address] [place] [address] [address] [place] [address] Bilirubin [Mass/Vol] 0.5 mg/dL Normal 0.2-1.3 [facility] Comment on above: Order Comment: Items in this order include: Comprehensive Metabolic Panel, CBC with differential, TSH w/ reflex to FT4, B12/Folate, , , , Manual Differential if Indicated, Slide Scan, MicroscopeTesting Performed By: [facility] [address] [place] [address] [address] [address] Donnie Jean, Television Journalist Performed By: #### C 709 #### [facility], [facility]. [address] [place] [address] [address] [place] [address] Calcium [Mass/Vol] 9.7 mg/dL Normal 8.5-10.5 [facility] Comment on above: Order Comment: Items in this order include: Comprehensive Metabolic Panel, CBC with differential, TSH w/ reflex to FT4, B12/Folate, , , , Manual Differential if Indicated, Slide Scan, MicroscopeTesting Performed By: [facility] [address] [place] [address]. [place] [address] Dr. Donnie Jean, Television Journalist Performed By: #### C 709 #### [facility] [address] [place] [address] [address] [place] [address] Chloride [Moles/Vol] 111 mmol/L High 98-107 [facility] Comment on above: Order Comment: Items in this order include: Comprehensive Metabolic Panel, CBC with differential, TSH w/ reflex to FT4, B12/Folate, , , , Manual Differential if Indicated, Slide Scan, MicroscopeTesting Performed By: [facility] [address] [place] [address]. [place] [address] Dr. Donnie Jean, Television Journalist Performed By: #### C 709 #### [facility], [facility]. [address] [place] [address] [address] [place] [address] CO2 [Moles/Vol] 16.0 mmol/L Low 21.0-32.0 [facility] Comment on above: Order Comment: Items in this order include: Comprehensive Metabolic Panel, CBC with differential, TSH w/ reflex to FT4, B12/Folate, , , , Manual Differential if Indicated, Slide Scan, MicroscopeTesting Performed By: [facility] [address] [place] [address]. [place] [address] Dr. Donnie Jean, Television Journalist Performed By: #### Jany 709 #### [facility] [address] [place] [address] [address] [place] [address] Creatinine [Mass/Vol] 1.6 mg/dL High 0.1-1.2 [facility] Comment on above: Order Comment: Items in this order include: Comprehensive Metabolic Panel, CBC with differential, TSH w/ reflex to FT4, B12/Folate, , , , Manual Differential if Indicated, Slide Scan, MicroscopeTesting Performed By: [facility] [address] [place] [address]. [place] [address] Dr. Donnie Jean, Television Journalist Performed By: #### Jany 709 #### [facility], [facility]. [address] [place] [address] [address] [place] [address] GFR/1.73 sq M.predicted MDRD (S/P/Bld) [Vol rate/Area] 31 mL/min per 1.73 Low >60 [facility] Comment on above: Order Comment: Items in this order include: Comprehensive Metabolic Panel, CBC with differential, TSH w/ reflex to FT4, B12/Folate, , , , Manual Differential if Indicated, Slide Scan, MicroscopeTesting Performed By: [facility] [address] [place] [address]. [place] [address] Dr. Donnie Jean, Television Journalist Result Comment: The GFR estimate is not adjusted for race. If the patient's race is -[place], the GFR estimate must be multiplied by a factor of 1.21. Performed By: #### C 709 #### [facility], [facility]. [address] [place] [address] [address] [place] [address] Glucose [Mass/Vol] 112 mg/dL High 74-100 [facility] Comment on above: Order Comment: Items in this order include: Comprehensive Metabolic Panel, CBC with differential, TSH w/ reflex to FT4, B12/Folate, , , , Manual Differential if Indicated, Slide Scan, MicroscopeTesting Performed By: [facility] [address] [place] [address] Dr. Donnie Jean, Television Journalist Performed By: #### C 709 #### [facility], [facility]. [address] [place] [address] [address] - [place] [id number] Potassium [Moles/Vol] 5.4 mmol/L High 3.5-5.3 [facility] Comment on above: Order Comment: Items in this order include: Comprehensive Metabolic Panel, CBC with differential, TSH w/ reflex to FT4, B12/Folate, , , , Manual Differential if Indicated, Slide Scan, MicroscopeTesting Performed By: [facility] [address] [place] [address] Dr. Donnie Jean, Television Journalist Performed By: #### C 709 #### [facility], [facility]. [address] [place] [address] [address] [place] [address] Protein [Mass/Vol] 7.4 g/dL Normal 6.3-8.4 [facility] Comment on above: Order Comment: Items in this order include: Comprehensive Metabolic Panel, CBC with differential, TSH w/ reflex to FT4, B12/Folate, , , , Manual Differential if Indicated, Slide Scan, MicroscopeTesting Performed By: [facility] [address] [place] [address]. [place] [address] Dr. Donnie Jean, Television Journalist Performed By: #### C 709 #### [facility] [address] [place] [address] [place] [address] Sodium [Moles/Vol] 140 mmol/L Normal 135-145 [facility] Comment on above: Order Comment: Items in this order include: Comprehensive Metabolic Panel, CBC with differential, TSH w/ reflex to FT4, B12/Folate, , , , Manual Differential if Indicated, Slide Scan, MicroscopeTesting Performed By: [facility] [address] [place] [address] [address] [address] Donnie Jean, Television Journalist Performed By: #### Jany 709 #### [facility], [facility]. [address] [place] [address] [place] [address] Urea nitrogen [Mass/Vol] 40 mg/dL High 6-22 [facility] Comment on above: Order Comment: Items in this order include: Comprehensive Metabolic Panel, CBC with differential, TSH w/ reflex to FT4, B12/Folate, , , , Manual Differential if Indicated, Slide Scan, MicroscopeTesting Performed By: [facility] [address] [place] [id number] Donnie Jean, Television Journalist Performed By: #### C 709 #### [facility], [facility]. [address] [place] [address] [place] [address] Culture, Urineon 09-27-2020 RPT Microbiology results Normal [facility] Comment on above: Order Comment: Items in this order include: Culture, Urine Testing Performed By: [facility] [address] [place] [address] Donnie Jean, Television Journalist Result Comment: Kaylee l Result: No growth at 24 hours. Performed By: #### C 734 #### [facility] [address] [place] [address] Manual Differential if Indic atedon 09-27-2020 Anisocytosis Ql (Bld) SLIGHT Normal [facility] Comment on above: Order Comment: Items in this order include: Culture, Urine Testing Performed By: [facility] [facility] [place] [address] Dr. Donnie Jean, Television Journalist Performed By: #### C 734 #### [facility] [address] [place] [address] Luna Cells SLIGHT Normal [facility] Comment on above: Order Comment: Items in this order include: Culture, Urine Testing Performed By: [facility] [address] [place] [address]. [place] [address] Dr. Donnie Jean, Television Journalist Performed By: #### C 734 #### [facility] [address] [place] [address] Lymphocytes 2 % Low 20-51 [facility] Comment on above: Order Comment: Items in this order include: Culture, Urine Testing Performed By: [facility] [address] [place] [address]. [place] [address] Dr. Donnie Jean, Television Journalist Performed By: #### C 734 #### [facility] [address] [place] [address] Rd [address] [place] [address] Macrocytes Ql (Bld) SLIGHT Normal [facility] Comment on above: Order Comment: Items in this order include: Culture, Urine Testing Performed By: [facility] [address] [place] [address]. [place] [address] Dr. Donnie Jean, Television Journalist Performed By: #### C 734 #### [facility] [address] [place] [address] Metamyelocytes 1 % Normal <2 [facility] Comment on above: Order Comment: Items in this order include: Culture, Urine Testing Performed By: [facility] [address] [place] [address] Dr. Donnie Jean, Television Journalist Performed By: #### C 734 #### [facility] [address] [place] [address] Monocytes 2 % Normal 2-9 [facility] Comment on above: Order Comment: Items in this order include: Culture, Urine Testing Performed By: [facility] [address] [place] [address] Dr. Donnie Jean, Television Journalist Performed By: #### C 734 #### [facility] [address] [facility] [address] [place] [address] Neutrophils 95 % High 42-75 [facility] Comment on above: Order Comment: Items in this order include: Culture, Urine Testing Performed By: [facility] [address] [place] [address] Dr. Donnie Jean, Television Journalist Performed By: #### C 734 #### [facility] [address] [place] [address] Ovalocytes SLIGHT Normal [facility] Comment on above: Order Comment: Items in this order include: Culture, Urine Testing Performed By: [facility] [address] [place] [address] Dr. Donnie Jean, Television Journalist Performed By: #### C 734 #### [facility] [address] [place] [address] Poikilocytosis MODERATE Normal [facility] Comment on above: Order Comment: Items in this order include: Culture, Urine Testing Performed By: [facility] [address] [place] [address] Dr. Donnie Jean, Television Journalist Performed By: #### C 734 #### [facility] [address] [place] [address] Polychromasia SLIGHT Normal [facility] Comment on above: Order Comment: Items in this order include: Culture, Urine Testing Performed By: [facility] [address] [place] [address]. [place] [address] Dr. Donnie Jean, Television Journalist Performed By: #### C 734 #### [facility] [address] [place] [address] [address] [place] [address] Target Cells SLIGHT Normal [facility] Comment on above: Order Comment: Items in this order include: Culture, Urine Testing Performed By: [facility] [address] [place] [address]. [place] [address] Dr. Donnie Jean, Television Journalist Performed By: #### C 734 #### [facility] [address] [place] [address] [address] [place] [address] Slide Scan, Microscopeon Platelets (Bld) [#/Vol] RESULTS MAY BE INACCURATE DUE TO PLATELET CLUMPING; SUGGEST REDRAW PLT COUNT IN BLUE-TOP (CITRATED TUBE). ALL OTHER CBC PARAMETERS ARE UNAFFECTED BY THIS IN VITRO PHENOMENON. Normal [facility] Comment on above: Order Comment: Items in this order include: Culture, Urine Testing Performed By: [facility] [address] [place] [address]. [place] [address] Dr. Donnie Jean, Television Journalist Performed By: #### C 734 #### [facility] [address] [place] [address] [address] [place] [address] TSH w/ reflex to FT4on 09-27 TSH Qn 4.30 MIU/mL Normal 0.50-6.00 [facility] Comment on above: Order Comment: Items in this order include: Culture, Urine Testing Performed By: [facility] [address] [place] [address]. [place] [address] Dr. Donnie Jean, Television Journalist Performed By: #### C 734 #### [facility] [address] [place] [address] [address] [place] [address] CBC with differentialon Erythrocyte distribution width (RBC) [Ratio] 15.4 % Normal 11.5-15.5 [facility] Comment on above: Order Comment: Items in this order include: Comprehensive Metabolic Panel, Lipid Panel, Uric Acid , Vit D 25 [place] (Total), CBC with differential, HgbA1C, , , , Slide Scan if Indicated, Manual Differential if IndicatedTesting Performed By: [facility] [address] [place] [address]. [place] [address] Dr. Donnie Jean, Television Journalist Performed By: #### C 709 #### [facility] [address] [place] [address] [place] [address] Hematocrit (Bld) [Volume fraction] 37.9 % Normal 37.0-47.0 [facility] Comment on above: Order Comment: Items in this order include: Comprehensive Metabolic Panel, Lipid Panel, Uric Acid , Vit D 25 [place] (Total), CBC with differential, HgbA1C, , , , Slide Scan if Indicated, Manual Differential if IndicatedTesting Performed By: [facility] [address] [place] [address] Donnie Jean, Television Journalist Performed By: #### C 709 #### [facility], [facility]. [address] [place] [address] [place] [address] Hemoglobin (Bld) [Mass/Vol] 12.1 g/dL Normal 11.5-15.5 [facility] Comment on above: Order Comment: Items in this order include: Comprehensive Metabolic Panel, Lipid Panel, Uric Acid , Vit D 25 [place] (Total), CBC with differential, HgbA1C, , , , Slide Scan if Indicated, Manual Differential if IndicatedTesting Performed By: [facility] [address] [place] [address] Donnie Jean, Television Journalist Performed By: #### C 709 #### [facility], [facility]. [address] [place] [address] [place] [address] MCH (RBC) [Entitic mass] 35.7 pg High 27.0-31.0 [facility] Comment on above: Order Comment: Items in this order include: Comprehensive Metabolic Panel, Lipid Panel, Uric Acid , Vit D 25 [place] (Total), CBC with differential, HgbA1C, , , , Slide Scan if Indicated, Manual Differential if IndicatedTesting Performed By: [facility] [address] [place] [address] Donnie Jean, Television Journalist Performed By: #### C 709 #### [facility] [address] [place] [address] [address] [place] [address] MCHC (RBC) [Mass/Vol] 31.9 g/dL Low 32.0-36.0 [facility] Comment on above: Order Comment: Items in this order include: Comprehensive Metabolic Panel, Lipid Panel, Uric Acid , Vit D 25 [place] (Total), CBC with differential, HgbA1C, , , , Slide Scan if Indicated, Manual Differential if IndicatedTesting Performed By: [facility] [address] [place] [address] [address] Donnie Jean, Television Journalist Performed By: #### Jany 709 #### [facility], [facility]. [address] [place] [address] [address] [place] [address] MCV (RBC) [Entitic vol] 111.8 fL High 78.0-100.0 [facility] Comment on above: Order Comment: Items in this order include: Comprehensive Metabolic Panel, Lipid Panel, Uric Acid , Vit D 25 [place] (Total), CBC with differential, HgbA1C, , , , Slide Scan if Indicated, Manual Differential if IndicatedTesting Performed By: [facility] [address] [place] [address]. [place] [address] Dr. Donnie Jean, Television Journalist Performed By: #### C 709 #### [facility], [facility]. [address] [place] [address] [address] [place] [address] Platelet mean volume (Bld) [Entitic vol] 10.5 fL Normal 8.9-12.6 [facility] Comment on above: Order Comment: Items in this order include: Comprehensive Metabolic Panel, Lipid Panel, Uric Acid , Vit D 25 [place] (Total), CBC with differential, HgbA1C, , , , Slide Scan if Indicated, Manual Differential if IndicatedTesting Performed By: [facility] [address] [place] [address]. [place] [address] Dr. Donnie Jean, Television Journalist Performed By: #### Jany 709 #### [facility], [facility]. [address] [place] [address] [address] [place] [address] Platelets (Bld) [#/Vol] 356 K CUMM Normal 130-400 [facility] Comment on above: Order Comment: Items in this order include: Comprehensive Metabolic Panel, Lipid Panel, Uric Acid , Vit D 25 [place] (Total), CBC with differential, HgbA1C, , , , Slide Scan if Indicated, Manual Differential if IndicatedTesting Performed By: [facility] [address] [place] [address]. [place] [address] Dr. Donnie Jean, Television Journalist Performed By: #### Jany 709 #### [facility], [facility]. [address] [place] [address] [address] [place] [address] RBC (Bld) [#/Vol] 3.39 M CUMM Low 3.80-5.10 [facility] Comment on above: Order Comment: Items in this order include: Comprehensive Metabolic Panel, Lipid Panel, Uric Acid , Vit D 25 [place] (Total), CBC with differential, HgbA1C, , , , Slide Scan if Indicated, Manual Differential if IndicatedTesting Performed By: [facility] [address] [place] [address]. [place] [address] Dr. Donnie Jean, Television Journalist Performed By: #### Jany 709 #### [facility], [facility]. [address] [place] [address] [address] [place] [address] WBC (Bld) [#/Vol] 18.3 K CUMM High 3.8-10.6 [facility] Comment on above: Order Comment: Items in this order include: Comprehensive Metabolic Panel, Lipid Panel, Uric Acid , Vit D 25 [place] (Total), CBC with differential, HgbA1C, , , , Slide Scan if Indicated, Manual Differential if IndicatedTesting Performed By: [facility] [address] [place] [address]. [place] [address] Dr. Donnie Jean, Television Journalist Performed By: #### C 709 #### [facility] [facility] [address] [place] [address] Comprehensive Metabolic Pane donnie 06-21-2020 Albumin [Mass/Vol] 4.4 g/dL Normal 3.5-5.0 [facility] Comment on above: Order Comment: Items in this order include: Comprehensive Metabolic Panel, Lipid Panel, Uric Acid , Vit D 25 [place] (Total), CBC with differential, HgbA1C, , , , Slide Scan if Indicated, Manual Differential if IndicatedTesting Performed By: [facility] [address] [place] [address]. [place] [address] Dr. Donnie Jean, Lab DirectorItems in this order include: Comprehensive Metabolic Panel, Lipid Panel, Uric Acid , Vit D 25 [place] (Total), CBC with differential, HgbA1C, , , , Manual Differential if Indicated Performed By: #### C 709 #### [facility] [address] [place] [address] [address] [place] [address] Alk Phos 66 U/L Normal 23-159 [facility] Comment on above: Order Comment: Items in this order include: Comprehensive Metabolic Panel, Lipid Panel, Uric Acid , Vit D 25 [place] (Total), CBC with differential, HgbA1C, , , , Slide Scan if Indicated, Manual Differential if IndicatedTesting Performed By: [facility] [address] [place] [address]. [place] [address] Dr. Donnie Jean, Lab DirectorItems in this order include: Comprehensive Metabolic Panel, Lipid Panel, Uric Acid , Vit D 25 [place] (Total), CBC with differential, HgbA1C, , , , Manual Differential if Indicated Performed By: #### C 709 #### [facility] [address] [place] [address] [address] [place] [address] ALT [Catalytic activity/Vol] 9 U/L Normal 0-38 [facility] Comment on above: Order Comment: Items in this order include: Comprehensive Metabolic Panel, Lipid Panel, Uric Acid , Vit D 25 [place] (Total), CBC with differential, HgbA1C, , , , Slide Scan if Indicated, Manual Differential if IndicatedTesting Performed By: [facility] [address] [place] [address]. [place] [address] Dr. Donnie Jean, Lab DirectorItems in this order include: Comprehensive Metabolic Panel, Lipid Panel, Uric Acid , Vit D 25 [place] (Total), CBC with differential, HgbA1C, , , , Manual Differential if Indicated Performed By: #### C 709 #### [facility] [address] [place] [address] [address] [place] [address] AST [Catalytic activity/Vol] 17 U/L Normal 11-43 [facility] Comment on above: Order Comment: Items in this order include: Comprehensive Metabolic Panel, Lipid Panel, Uric Acid , Vit D 25 [place] (Total), CBC with differential, HgbA1C, , , , Slide Scan if Indicated, Manual Differential if IndicatedTesting Performed By: [facility] [address] [place] [address]. [place] [address] Dr. Donnie Jean, Lab DirectorItems in this order include: Comprehensive Metabolic Panel, Lipid Panel, Uric Acid , Vit D 25 [place] (Total), CBC with differential, HgbA1C, , , , Manual Differential if Indicated Performed By: #### C 709 #### [facility] [address] [place] [address] [address] [place] [address] Bilirubin [Mass/Vol] 0.3 mg/dL Normal 0.2-1.3 [facility] Comment on above: Order Comment: Items in this order include: Comprehensive Metabolic Panel, Lipid Panel, Uric Acid , Vit D 25 [place] (Total), CBC with differential, HgbA1C, , , , Slide Scan if Indicated, Manual Differential if IndicatedTesting Performed By: [facility] [address] [place] [address]. [place] [address] Dr. Donnie Jean, Lab DirectorItems in this order include: Comprehensive Metabolic Panel, Lipid Panel, Uric Acid , Vit D 25 [place] (Total), CBC with differential, HgbA1C, , , , Manual Differential if Indicated Performed By: #### C 709 #### [facility] [address] [place] [address] [address] [place] [address] Calcium [Mass/Vol] 10.1 mg/dL Normal 8.5-10.5 [facility] Comment on above: Order Comment: Items in this order include: Comprehensive Metabolic Panel, Lipid Panel, Uric Acid , Vit D 25 [place] (Total), CBC with differential, HgbA1C, , , , Slide Scan if Indicated, Manual Differential if IndicatedTesting Performed By: [facility] [address] [place] [address]. [place] [address] Dr. Donnie Jean, Lab DirectorItems in this order include: Comprehensive Metabolic Panel, Lipid Panel, Uric Acid , Vit D 25 [place] (Total), CBC with differential, HgbA1C, , , , Manual Differential if Indicated Performed By: #### C 709 #### [facility] [address] [place] [address] [address] [place] [address] Chloride [Moles/Vol] 106 mmol/L Normal 98-107 [facility] Comment on above: Order Comment: Items in this order include: Comprehensive Metabolic Panel, Lipid Panel, Uric Acid , Vit D 25 [place] (Total), CBC with differential, HgbA1C, , , , Slide Scan if Indicated, Manual Differential if IndicatedTesting Performed By: [facility] [address] [place] [address] [address] [address] Donnie Jean, Lab DirectorItems in this order include: Comprehensive Metabolic Panel, Lipid Panel, Uric Acid , Vit D 25 [place] (Total), CBC with differential, HgbA1C, , , , Manual Differential if Indicated Performed By: #### C 709 #### [facility] [address] [place] [address] [address] [place] [address] CO2 [Moles/Vol] 17.0 mmol/L Low 21.0-32.0 [facility] Comment on above: Order Comment: Items in this order include: Comprehensive Metabolic Panel, Lipid Panel, Uric Acid , Vit D 25 [place] (Total), CBC with differential, HgbA1C, , , , Slide Scan if Indicated, Manual Differential if IndicatedTesting Performed By: [facility] [address] [place] [address] [address] [address] Donnie Jean, Lab DirectorItems in this order include: Comprehensive Metabolic Panel, Lipid Panel, Uric Acid , Vit D 25 [place] (Total), CBC with differential, HgbA1C, , , , Manual Differential if Indicated Performed By: #### C 709 #### [facility], [facility]. [address] [place] [address] [place] [address] Creatinine [Mass/Vol] 1.5 mg/dL High 0.1-1.2 [facility] Comment on above: Order Comment: Items in this order include: Comprehensive Metabolic Panel, Lipid Panel, Uric Acid , Vit D 25 [place] (Total), CBC with differential, HgbA1C, , , , Slide Scan if Indicated, Manual Differential if IndicatedTesting Performed By: [facility] [address] [place] [address]. [place] [address] Dr. Donnie Jean, Lab DirectorItems in this order include: Comprehensive Metabolic Panel, Lipid Panel, Uric Acid , Vit D 25 [place] (Total), CBC with differential, HgbA1C, , , , Manual Differential if Indicated Performed By: #### C 709 #### [facility], [facility]. [address] [place] [address] [address] [place] [address] GFR/1.73 sq M.predicted MDRD (S/P/Bld) [Vol rate/Area] 33 mL/min per 1.73 Low >60 [facility] Comment on above: Order Comment: Items in this order include: Comprehensive Metabolic Panel, Lipid Panel, Uric Acid , Vit D 25 [place] (Total), CBC with differential, HgbA1C, , , , Slide Scan if Indicated, Manual Differential if IndicatedTesting Performed By: [facility] [address] [place], [place] [address] [place] [address] Dr. Donnie Jean, Lab DirectorItems in this order include: Comprehensive Metabolic Panel, Lipid Panel, Uric Acid , Vit D 25 [place] (Total), CBC with differential, HgbA1C, , , , Manual Differential if Indicated Result Comment: The GFR estimate is not adjusted for race. If the patient's race is -[place], the GFR estimate must be multiplied by a factor of 1.21. Performed By: #### C 709 #### [facility] [address] [place] [address] [place] [address] Glucose [Mass/Vol] 108 mg/dL High 74-100 [facility] Comment on above: Order Comment: Items in this order include: Comprehensive Metabolic Panel, Lipid Panel, Uric Acid , Vit D 25 [place] (Total), CBC with differential, HgbA1C, , , , Slide Scan if Indicated, Manual Differential if IndicatedTesting Performed By: [facility] [address] [place] [address] [address] Donnie Jean, Lab DirectorItems in this order include: Comprehensive Metabolic Panel, Lipid Panel, Uric Acid , Vit D 25 [place] (Total), CBC with differential, HgbA1C, , , , Manual Differential if Indicated Performed By: #### C 709 #### [facility], [facility]. [address] [place] [address] [address] [place] [id number] Potassium [Moles/Vol] 4.7 mmol/L Normal 3.5-5.3 [facility] Comment on above: Order Comment: Items in this order include: Comprehensive Metabolic Panel, Lipid Panel, Uric Acid , Vit D 25 [place] (Total), CBC with differential, HgbA1C, , , , Slide Scan if Indicated, Manual Differential if IndicatedTesting Performed By: [facility] [address] [place] [address] [address] [address] Donnie Jean, Lab DirectorItems in this order include: Comprehensive Metabolic Panel, Lipid Panel, Uric Acid , Vit D 25 [place] (Total), CBC with differential, HgbA1C, , , , Manual Differential if Indicated Performed By: #### C 709 #### [facility], [facility]. [address] [place] [address] [place] [address] Protein [Mass/Vol] 7.4 g/dL Normal 6.3-8.4 [facility] Comment on above: Order Comment: Items in this order include: Comprehensive Metabolic Panel, Lipid Panel, Uric Acid , Vit D 25 [place] (Total), CBC with differential, HgbA1C, , , , Slide Scan if Indicated, Manual Differential if IndicatedTesting Performed By: [facility] [address] [place] [address] Donnie Jean, Lab DirectorItems in this order include: Comprehensive Metabolic Panel, Lipid Panel, Uric Acid , Vit D 25 [place] (Total), CBC with differential, HgbA1C, , , , Manual Differential if Indicated Performed By: #### C 709 #### [facility], [facility]. [address] [place] [address] [place] [address] Sodium [Moles/Vol] 139 mmol/L Normal 135-145 [facility] Comment on above: Order Comment: Items in this order include: Comprehensive Metabolic Panel, Lipid Panel, Uric Acid , Vit D 25 [place] (Total), CBC with differential, HgbA1C, , , , Slide Scan if Indicated, Manual Differential if IndicatedTesting Performed By: [facility] [address] [place] [address]. [place] [address] Dr. Donnie Jean, Lab DirectorItems in this order include: Comprehensive Metabolic Panel, Lipid Panel, Uric Acid , Vit D 25 [place] (Total), CBC with differential, HgbA1C, , , , Manual Differential if Indicated Performed By: #### C 709 #### [facility] [address] [place] [address] [place] [address] Urea nitrogen [Mass/Vol] 36 mg/dL High 6-22 [facility] Comment on above: Order Comment: Items in this order include: Comprehensive Metabolic Panel, Lipid Panel, Uric Acid , Vit D 25 [place] (Total), CBC with differential, HgbA1C, , , , Slide Scan if Indicated, Manual Differential if IndicatedTesting Performed By: [facility] [address] [place] [address] Donnie Jean, Lab DirectorItems in this order include: Comprehensive Metabolic Panel, Lipid Panel, Uric Acid , Vit D 25 [place] (Total), CBC with differential, HgbA1C, , , , Manual Differential if Indicated Performed By: #### C 709 #### [facility], [facility]. [address] [place] [address] [place] [address] [id number] 06-21-2020 HbA1c (Bld) [Mass fraction] 6.3 % High <5.7 [facility] Comment on above: Order Comment: Items in this order include: Comprehensive Metabolic Panel, Lipid Panel, Uric Acid , Vit D 25 [place] (Total), CBC with differential, HgbA1C, , , , Slide Scan if Indicated, Manual Differential if IndicatedTesting Performed By: [facility] [address] [place] [address]. [place] [address] Dr. Donnie Jean, Lab DirectorItems in this order include: Comprehensive Metabolic Panel, Lipid Panel, Uric Acid , Vit D 25 [place] (Total), CBC with differential, HgbA1C, , , , Manual Differential if Indicated Result Comment: Refe rence Interval: Normal: below 5.7%. Prediabetes: 5.7% to 6.4%. Diabetes: 6.5% or above. Performed By: #### C 709 #### [facility] [address] [place] [address] [address] [place] [address] Lipid Panelon 06-21-2020 Cholesterol [Mass/Vol] 124 mg/dL Normal <200 [facility] Comment on above: Performed By: #### C 709 #### [facility] [address] [place] [address] [address] [place] [address] Cholesterol in HDL [Mass/Vol] 34 mg/dL Low >50 [facility] Comment on above: Performed By: #### C 709 #### [facility] [address] [place] [address] [address] [place] [address] Cholesterol in LDL [Mass/Vol] 49 mg/dL Normal <130 [facility] Comment on above: Performed By: #### C 709 #### [facility] [address] [place] [address] [address] [place] [address] Cholesterol.total/C holesterol in HDL [Mass ratio] 3.6 {ratio} Normal <4.0 [facility] Comment on above: Performed By: #### C 709 #### [facility] [address] [place] [address] [address] [place] [address] Non-HDL Chol 90 Normal LDL Goal + 30 [facility] Comment on above: Result Comment: LDL and Non-HDL goal dependent upon individual risk Performed By: #### C 709 #### [facility] [address] [facility] [address] [place] [address] Triglyceride [Mass/Vol] 206 mg/dL High <150 [facility] Comment on above: Performed By: #### C 709 #### [facility] [address] [facility] [address] [place] [address] VLDL-Calc 41 mg/dl High <30 [facility] Comment on above: Performed By: #### C 709 #### [facility] [address] [place] [address] [address] [place] [address] Manual Differential if Indic atedon 06-21-2020 Anisocytosis Ql (Bld) MODERATE Normal [facility] Comment on above: Order Comment: Items in this order include: Comprehensive Metabolic Panel, Lipid Panel, Uric Acid , Vit D 25 [place] (Total), CBC with differential, HgbA1C, , , , Slide Scan if Indicated, Manual Differential if IndicatedTesting Performed By: [facility] [address] [place] [address] Donnie Jean, Lab DirectorItems in this order include: Comprehensive Metabolic Panel, Lipid Panel, Uric Acid , Vit D 25 [place] (Total), CBC with differential, HgbA1C, , , , Manual Differential if IndicatedReceived comment: User comments: Slide comments: Performed By: #### C 709 #### [facility] [address] [facility] [address] [place] [address] Basophils 1 % Normal [facility] Comment on above: Order Comment: Items in this order include: Comprehensive Metabolic Panel, Lipid Panel, Uric Acid , Vit D 25 [place] (Total), CBC with differential, HgbA1C, , , , Slide Scan if Indicated, Manual Differential if IndicatedTesting Performed By: [facility] [address] [place] [address] Donnie Jean, Lab DirectorItems in this order include: Comprehensive Metabolic Panel, Lipid Panel, Uric Acid , Vit D 25 [place] (Total), CBC with differential, HgbA1C, , , , Manual Differential if IndicatedReceived comment: User comments: Slide comments: Performed By: #### C 709 #### [facility] [address] [facility] [address] [place] [address] Lymphocytes 7 % Low 20-51 [facility] Comment on above: Order Comment: Items in this order include: Comprehensive Metabolic Panel, Lipid Panel, Uric Acid , Vit D 25 [place] (Total), CBC with differential, HgbA1C, , , , Slide Scan if Indicated, Manual Differential if IndicatedTesting Performed By: [facility] [address] [place] [address]. [place] [address] Dr. Donnie Jean, Lab DirectorItems in this order include: Comprehensive Metabolic Panel, Lipid Panel, Uric Acid , Vit D 25 [place] (Total), CBC with differential, HgbA1C, , , , Manual Differential if IndicatedReceived comment: User comments: Slide comments: Performed By: #### C 709 #### [facility] [address] [place] [address] [address] [place] [address] Macrocytes Ql (Bld) SLIGHT Normal [facility] Comment on above: Order Comment: Items in this order include: Comprehensive Metabolic Panel, Lipid Panel, Uric Acid , Vit D 25 [place] (Total), CBC with differential, HgbA1C, , , , Slide Scan if Indicated, Manual Differential if IndicatedTesting Performed By: [facility] [address] [place] [address] Donnie Jean, Lab DirectorItems in this order include: Comprehensive Metabolic Panel, Lipid Panel, Uric Acid , Vit D 25 [place] (Total), CBC with differential, HgbA1C, , , , Manual Differential if IndicatedReceived comment: User comments: Slide comments: Performed By: #### C 709 #### [facility] [address] [place] [address] [address] [place] [address] Metamyelocytes 3 % High <2 [facility] Comment on above: Order Comment: Items in this order include: Comprehensive Metabolic Panel, Lipid Panel, Uric Acid , Vit D 25 [place] (Total), CBC with differential, HgbA1C, , , , Slide Scan if Indicated, Manual Differential if IndicatedTesting Performed By: [facility] [address] [place] [address]. [place] [address] Dr. Donnie Jean, Lab DirectorItems in this order include: Comprehensive Metabolic Panel, Lipid Panel, Uric Acid , Vit D 25 [place] (Total), CBC with differential, HgbA1C, , , , Manual Differential if IndicatedReceived comment: User comments: Slide comments: Performed By: #### C 709 #### [facility] [address] [place] [address] [address] [place] [address] Microcytes SLIGHT Normal SLIGHT [facility] Comment on above: Order Comment: Items in this order include: Comprehensive Metabolic Panel, Lipid Panel, Uric Acid , Vit D 25 [place] (Total), CBC with differential, HgbA1C, , , , Slide Scan if Indicated, Manual Differential if IndicatedTesting Performed By: [facility] [address] [place] [address] Dr. Donnie Jean, Lab DirectorItems in this order include: Comprehensive Metabolic Panel, Lipid Panel, Uric Acid , Vit D 25 [place] (Total), CBC with differential, HgbA1C, , , , Manual Differential if IndicatedReceived comment: User comments: Slide comments: Performed By: #### C 709 #### [facility] [address] [place] [address] [place] [address] Neutrophils 89 % High 42-75 [facility] Comment on above: Order Comment: Items in this order include: Comprehensive Metabolic Panel, Lipid Panel, Uric Acid , Vit D 25 [place] (Total), CBC with differential, HgbA1C, , , , Slide Scan if Indicated, Manual Differential if IndicatedTesting Performed By: [facility] [address] [place] [address]. [place] [address] Dr. Donnie Jean, Lab DirectorItems in this order include: Comprehensive Metabolic Panel, Lipid Panel, Uric Acid , Vit D 25 [place] (Total), CBC with differential, HgbA1C, , , , Manual Differential if IndicatedReceived comment: User comments: Slide comments: Performed By: #### C 709 #### [facility] [address] [place] [address] [address] [place] [address] Polychromasia SLIGHT Normal [facility] Comment on above: Order Comment: Items in this order include: Comprehensive Metabolic Panel, Lipid Panel, Uric Acid , Vit D 25 [place] (Total), CBC with differential, HgbA1C, , , , Slide Scan if Indicated, Manual Differential if IndicatedTesting Performed By: [facility] [address] [place] [address] Donnie Jean, Lab DirectorItems in this order include: Comprehensive Metabolic Panel, Lipid Panel, Uric Acid , Vit D 25 [place] (Total), CBC with differential, HgbA1C, , , , Manual Differential if IndicatedReceived comment: User comments: Slide comments: Performed By: #### C 709 #### [facility] [address] [place] [address] [place] [address] Uric Acidon 06-21-2020 Urate [Mass/Vol] 9.0 mg/dL High 2.5-6.2 [facility] Comment on above: Performed By: #### C 709 #### [facility] [address] [place] [address] [place] [address] Vit D 25 [place] (Total)on 2019 Vit D 25 [place] (Total) 36.9 ng/ml Normal 31.0-100.0 [facility] Comment on above: Order Comment: Items in this order include: Comprehensive Metabolic Panel, Lipid Panel, Uric Acid , Vit D 25 [place] (Total), CBC with differential, HgbA1C, , , , Slide Scan if Indicated, Manual Differential if IndicatedTesting Performed By: [facility] [address] [place] [address]. [place] [address] Dr. Donnie Jean, Lab DirectorItems in this order include: Comprehensive Metabolic Panel, Lipid Panel, Uric Acid , Vit D 25 [place] (Total), CBC with differential, HgbA1C, , , , Manual Differential if Indicated Result Comment: Defi ciency <10 ng/ml Insufficiency 10-30 ng/ml Sufficiency 31-100 ng/ml Toxicity >100 ng/ml Performed By: #### C 709 #### [facility] [address] [place] [address] [place] [address] [place] Mammo Digital Diag RT w t virgilio (NB)on 02-03-2020 SHADY Mammo Digital Diag RT w mark (NB) [...] digital bilateral mammogram images. Computer-aided detection utilizing [employer] reader has been performed. BREAST COMPOSITION: There [...] by: OSKAR 02/03/2020 14:27 Technologist: PRINCE Cam [facility] Mammo Digital Screen bila t w [...] will be immediately mailed to the patient. [place] thanks you for the opportunity to care for your patient. Workstation ID: [id number] FINAL REPORT Dictated By: Jazlyn Stuart MD 02/01/2020 14:28 Assigned Physician: Jazlyn Stuart MD Reviewed and Electronically Signed By: Jazlyn Stuart MD 02/01/2020 14:29 Transcribed by: OSKAR 02/01/2020 14:28 Technologist: JEROME [facility] CBC with differentialon Erythrocyte distribution width (RBC) [Ratio] 14.7 % Normal 11.5-15.5 [facility] Comment on above: Order Comment: Items in this order include: Cholesterol, Comprehensive Metabolic Panel, Direct LDL , HDL, Uric Acid , CBC with differential, HgbA1C, , , Slide Scan if Indicated, Manual Differential if Indicated Testing Performed By: [facility] [place] [address] Dr. Donnie Jean, Television Journalist Items in this order include: Cholesterol, Comprehensive Metabolic Panel, Direct LDL , HDL, Uric Acid , CBC with differential, HgbA1C, , , Slide Scan if Indicated, Manual Differential if Indicated Testing Performed By: [facility] [place] [address] Dr. Donnie Jean, Television Journalist Items in this order include: Cholesterol, Comprehensive Metabolic Panel, Direct LDL , HDL, Uric Acid , CBC with differential, HgbA1C, , , Slide Scan if Indicated, Manual Differential if Indicated Testing Performed By: [facility] [address] [place], [place] [address] [facility] [place] [address] Dr. Donnie Jean, Television Journalist Performed By: #### C 120, C141, C116, C406, C4521, C118, C47, C4523, C215 #### [facility] [address] ServicesMOGO Designhopi health care centerZenitum [facility] [address] [place] [address] Hematocrit (Bld) [Volume fraction] 40.6 % Normal 37.0-47.0 [facility] Comment on above: Order Comment: Items in this order include: Cholesterol, Comprehensive Metabolic Panel, Direct LDL , HDL, Uric Acid , CBC with differential, HgbA1C, , , Slide Scan if Indicated, Manual Differential if Indicated Testing Performed By: [facility] [place] [address] Dr. Donnie Jean, Television Journalist Items in this order include: Cholesterol, Comprehensive Metabolic Panel, Direct LDL , HDL, Uric Acid , CBC with differential, HgbA1C, , , Slide Scan if Indicated, Manual Differential if Indicated Testing Performed By: [facility] [address] [place] [address] Dr. Donnie Jean, Television Journalist Items in this order include: Cholesterol, Comprehensive Metabolic Panel, Direct LDL , HDL, Uric Acid , CBC with differential, HgbA1C, , , Slide Scan if Indicated, Manual Differential if Indicated Testing Performed By: [facility] [address] [place] [address] Dr. Donnie Jean, Television Journalist Performed By: #### C 120, C141, C116, C406, C4521, C118, C47, C4523, C215 #### [facility], [facility]. [address] [place] [address] [address] [place] [address] Hemoglobin (Bld) [Mass/Vol] 12.9 g/dL Normal 11.5-15.5 [facility] Comment on above: Order Comment: Items in this order include: Cholesterol, Comprehensive Metabolic Panel, Direct LDL , HDL, Uric Acid , CBC with differential, HgbA1C, , , Slide Scan if Indicated, Manual Differential if Indicated Testing Performed By: [facility] [address] [place] [address] Dr. Donnie Jean, Television Journalist Items in this order include: Cholesterol, Comprehensive Metabolic Panel, Direct LDL , HDL, Uric Acid , CBC with differential, HgbA1C, , , Slide Scan if Indicated, Manual Differential if Indicated Testing Performed By: [facility] [address] [place] [address] Dr. Donnie Jean, Television Journalist Items in this order include: Cholesterol, Comprehensive Metabolic Panel, Direct LDL , HDL, Uric Acid , CBC with differential, HgbA1C, , , Slide Scan if Indicated, Manual Differential if Indicated Testing Performed By: [facility] [address] [place] [address] Dr. Donnie Jean, Television Journalist Performed By: #### C 120, C141, C116, C406, C4521, C118, C47, C4523, C215 #### [facility] [address] [facility] [address] [place] [address] MCH (RBC) [Entitic mass] 35.1 pg High 27.0-31.0 [facility] Comment on above: Order Comment: Items in this order include: Cholesterol, Comprehensive Metabolic Panel, Direct LDL , HDL, Uric Acid , CBC with differential, HgbA1C, , , Slide Scan if Indicated, Manual Differential if Indicated Testing Performed By: [facility] [address] [place] [address]. [place] [address] Dr. Donnie Jean, Television Journalist Items in this order include: Cholesterol, Comprehensive Metabolic Panel, Direct LDL , HDL, Uric Acid , CBC with differential, HgbA1C, , , Slide Scan if Indicated, Manual Differential if Indicated Testing Performed By: [facility] [address] [place] [address]. [place] [address] Dr. Donnie Jean, Television Journalist Items in this order include: Cholesterol, Comprehensive Metabolic Panel, Direct LDL , HDL, Uric Acid , CBC with differential, HgbA1C, , , Slide Scan if Indicated, Manual Differential if Indicated Testing Performed By: [facility] [address] [place] [address]. [place] [address] Dr. Donnie Jean, Television Journalist Performed By: #### C 120, C141, C116, C406, C4521, C118, C47, C4523, C215 #### [facility] [address] [place] [address] [address] [place] [address] MCHC (RBC) [Mass/Vol] 31.8 g/dL Low 32.0-36.0 [facility] Comment on above: Order Comment: Items in this order include: Cholesterol, Comprehensive Metabolic Panel, Direct LDL , HDL, Uric Acid , CBC with differential, HgbA1C, , , Slide Scan if Indicated, Manual Differential if Indicated Testing Performed By: [facility] [address] [place], [place] [address]San [facility]. [place] [id number] Dr. Donnie Jean, Television Journalist Items in this order include: Cholesterol, Comprehensive Metabolic Panel, Direct LDL , HDL, Uric Acid , CBC with differential, HgbA1C, , , Slide Scan if Indicated, Manual Differential if Indicated Testing Performed By: [facility] [address] [place] [address]. [place] [address] Dr. Donnie Jean, Television Journalist Items in this order include: Cholesterol, Comprehensive Metabolic Panel, Direct LDL , HDL, Uric Acid , CBC with differential, HgbA1C, , , Slide Scan if Indicated, Manual Differential if Indicated Testing Performed By: [facility] [address] [place] [address]. [place] [address] Dr. Donnie Jean, Television Journalist Performed By: #### C 120, C141, C116, C406, C4521, C118, C47, C4523, C215 #### [facility] [address] [place] [address] [place] [address] MCV (RBC) [Entitic vol] 110.6 fL High 78.0-100.0 [facility] Comment on above: Order Comment: Items in this order include: Cholesterol, Comprehensive Metabolic Panel, Direct LDL , HDL, Uric Acid , CBC with differential, HgbA1C, , , Slide Scan if Indicated, Manual Differential if Indicated Testing Performed By: [facility] [address] [place] [address]. [place] [address] Dr. Donnie Jean, Television Journalist Items in this order include: Cholesterol, Comprehensive Metabolic Panel, Direct LDL , HDL, Uric Acid , CBC with differential, HgbA1C, , , Slide Scan if Indicated, Manual Differential if Indicated Testing Performed By: [facility] [address] [place] [address]. [place] [address] Dr. Donnie Jean, Television Journalist Items in this order include: Cholesterol, Comprehensive Metabolic Panel, Direct LDL , HDL, Uric Acid , CBC with differential, HgbA1C, , , Slide Scan if Indicated, Manual Differential if Indicated Testing Performed By: [facility] [address] [place] [address]. [place] [address] Dr. Donnie Jean, Television Journalist Performed By: #### C 120, C141, C116, C406, C4521, C118, C47, C4523, C215 #### [facility] [address] [place] [address] [address] [place] [address] Platelet mean volume (Bld) [Entitic vol] 10.6 fL Normal 8.9-12.6 [facility] Comment on above: Order Comment: Items in this order include: Cholesterol, Comprehensive Metabolic Panel, Direct LDL , HDL, Uric Acid , CBC with differential, HgbA1C, , , Slide Scan if Indicated, Manual Differential if Indicated Testing Performed By: [facility] [address] [place] [address]. [place] [address] Dr. Donnie Jean, Television Journalist Items in this order include: Cholesterol, Comprehensive Metabolic Panel, Direct LDL , HDL, Uric Acid , CBC with differential, HgbA1C, , , Slide Scan if Indicated, Manual Differential if Indicated Testing Performed By: [facility] [address] [place] [address]. [place] [address] Dr. Donnie Jean, Television Journalist Items in this order include: Cholesterol, Comprehensive Metabolic Panel, Direct LDL , HDL, Uric Acid , CBC with differential, HgbA1C, , , Slide Scan if Indicated, Manual Differential if Indicated Testing Performed By: [facility] [address] [place] [address]. [place] [address] Dr. Donnie Jean, Television Journalist Performed By: #### C 120, C141, C116, C406, C4521, C118, C47, C4523, C215 #### [facility], [facility]. [address] [place] [address] [address] [place] [address] Platelets (Bld) [#/Vol] 302 K CUMM Normal 130-400 [facility] Comment on above: Order Comment: Items in this order include: Cholesterol, Comprehensive Metabolic Panel, Direct LDL , HDL, Uric Acid , CBC with differential, HgbA1C, , , Slide Scan if Indicated, Manual Differential if Indicated Testing Performed By: [facility] [address] [place] [address]. [place] [id number] Dr. Donnie Jean, Television Journalist Items in this order include: Cholesterol, Comprehensive Metabolic Panel, Direct LDL , HDL, Uric Acid , CBC with differential, HgbA1C, , , Slide Scan if Indicated, Manual Differential if Indicated Testing Performed By: [facility] [address] [place] [address]. [place] [id number] Dr. Donnie Jean, Television Journalist Items in this order include: Cholesterol, Comprehensive Metabolic Panel, Direct LDL , HDL, Uric Acid , CBC with differential, HgbA1C, , , Slide Scan if Indicated, Manual Differential if Indicated Testing Performed By: [facility] [address] [place] [address] Dr. Donnie Jean, Television Journalist Performed By: #### C 120, C141, C116, C406, C4521, C118, C47, C4523, C215 #### [facility] [address] [place] [address] Rd [address] [place] [address] RBC (Bld) [#/Vol] 3.67 M CUMM Low 3.80-5.10 [facility] Comment on above: Order Comment: Items in this order include: Cholesterol, Comprehensive Metabolic Panel, Direct LDL , HDL, Uric Acid , CBC with differential, HgbA1C, , , Slide Scan if Indicated, Manual Differential if Indicated Testing Performed By: [facility] [address] [place], [place] [id number] Dr. Donnie Jean, Television Journalist Items in this order include: Cholesterol, Comprehensive Metabolic Panel, Direct LDL , HDL, Uric Acid , CBC with differential, HgbA1C, , , Slide Scan if Indicated, Manual Differential if Indicated Testing Performed By: [facility] [address] [place] [address] [address] Donnie Jean, Television Journalist Items in this order include: Cholesterol, Comprehensive Metabolic Panel, Direct LDL , HDL, Uric Acid , CBC with differential, HgbA1C, , , Slide Scan if Indicated, Manual Differential if Indicated Testing Performed By: [facility] [address] [place] [address] Donnie Jean, Television Journalist Performed By: #### C 120, C141, C116, C406, C4521, C118, C47, C4523, C215 #### [facility] [address] [place] [address] WBC (Bld) [#/Vol] 19.7 K CUMM High 3.8-10.6 [facility] Comment on above: Order Comment: Items in this order include: Cholesterol, Comprehensive Metabolic Panel, Direct LDL , HDL, Uric Acid , CBC with differential, HgbA1C, , , Slide Scan if Indicated, Manual Differential if Indicated Testing Performed By: [facility] [address] [facility] [place] [address] Dr. Donnie Jean, Television Journalist Items in this order include: Cholesterol, Comprehensive Metabolic Panel, Direct LDL , HDL, Uric Acid , CBC with differential, HgbA1C, , , Slide Scan if Indicated, Manual Differential if Indicated Testing Performed By: [facility] [place] [address] Dr. Donnie Jean, Television Journalist Items in this order include: Cholesterol, Comprehensive Metabolic Panel, Direct LDL , HDL, Uric Acid , CBC with differential, HgbA1C, , , Slide Scan if Indicated, Manual Differential if Indicated Testing Performed By: [facility] [address] [place] [address]. [place] [address] Dr. Donnie Jean, Television Journalist Performed By: #### C 120, C141, C116, C406, C4521, C118, C47, C4523, C215 #### [facility] [address] [facility] [address] [place] [id number] Cholesterolon 01-18-2020 Cholesterol [Mass/Vol] 112 mg/dL Normal <200 [facility] Comment on above: Order Comment: Items in this order include: Cholesterol, Comprehensive Metabolic Panel, Direct LDL , HDL, Uric Acid , CBC with differential, HgbA1C, , , Slide Scan if Indicated, Manual Differential if Indicated Testing Performed By: [facility]. [place] [id number] Dr. Donnie Jean, Television Journalist Performed By: #### C 120, C141, C116, C406, C4521, C118, C47, C4523, C215 #### [facility] [address] [place] [address] Comprehensive Metabolic Pane donnie 01-18-2020 Albumin [Mass/Vol] 4.0 g/dL Normal 3.5-5.0 [facility] Comment on above: Performed By: #### C 120, C141, C116, C406, C4521, C118, C47, C4523, C215 #### [facility] [address] [place] [address] Alk Phos 74 U/L Normal 23-159 [facility] Comment on above: Performed By: #### C 120, C141, C116, C406, C4521, C118, C47, C4523, C215 #### [facility] [address] [place] [address] ALT [Catalytic activity/Vol] 18 U/L Normal 0-38 [facility] Comment on above: Performed By: #### C 120, C141, C116, C406, C4521, C118, C47, C4523, C215 #### [facility] [address] [facility] [address] [place] [address] AST [Catalytic activity/Vol] 22 U/L Normal 11-43 [facility] Comment on above: Performed By: #### C 120, C141, C116, C406, C4521, C118, C47, C4523, C215 #### [facility] [address] [facility] [address] [place] [address] Bilirubin [Mass/Vol] 0.6 mg/dL Normal 0.2-1.3 [facility] Comment on above: Performed By: #### C 120, C141, C116, C406, C4521, C118, C47, C4523, C215 #### [facility] [address] [place] [address] Calcium [Mass/Vol] 9.2 mg/dL Normal 8.5-10.5 [facility] Comment on above: Performed By: #### C 120, C141, C116, C406, C4521, C118, C47, C4523, C215 #### [facility] [address] [place] [address] Chloride [Moles/Vol] 101 mmol/L Normal 98-107 [facility] Comment on above: Performed By: #### C 120, C141, C116, C406, C4521, C118, C47, C4523, C215 #### [facility] [address] [place] [address] CO2 [Moles/Vol] 22.0 mmol/L Normal 21.0-32.0 [facility] Comment on above: Performed By: #### C 120, C141, C116, C406, C4521, C118, C47, C4523, C215 #### [facility] [address] [facility] [place] [address] Creatinine [Mass/Vol] 1.2 mg/dL Normal 0.1-1.2 [facility] Comment on above: Performed By: #### C 120, C141, C116, C406, C4521, C118, C47, C4523, C215 #### [facility] [address] [facility] [place] [address] GFR/1.73 sq M.predicted MDRD (S/P/Bld) [Vol rate/Area] 43 mL/min per 1.73 Low >60 [facility] Comment on above: Result Comment: The GFR estimate is not adjusted for race. If the patient's race is -[place], the GFR estimate must be multiplied by a factor of 1.21. Performed By: #### C 120, C141, C116, C406, C4521, C118, C47, C4523, C215 #### [facility] [address] [facility] [place] [address] Glucose [Mass/Vol] 157 mg/dL High 74-100 [facility] Comment on above: Performed By: #### C 120, C141, C116, C406, C4521, C118, C47, C4523, C215 #### [facility] [address] [facility] [address] [place] [address] Potassium [Moles/Vol] 4.3 mmol/L Normal 3.5-5.3 [facility] Comment on above: Performed By: #### C 120, C141, C116, C406, C4521, C118, C47, C4523, C215 #### [facility] [address] [facility] [address] [place] [address] Protein [Mass/Vol] 6.7 g/dL Normal 6.3-8.4 [facility] Comment on above: Performed By: #### C 120, C141, C116, C406, C4521, C118, C47, C4523, C215 #### [facility] [address] [facility] [place] [address] Sodium [Moles/Vol] 136 mmol/L Normal 135-145 [facility] Comment on above: Performed By: #### C 120, C141, C116, C406, C4521, C118, C47, C4523, C215 #### [facility] [address] [facility] [place] [address] Urea nitrogen [Mass/Vol] 25 mg/dL High 6-22 [facility] Comment on above: Performed By: #### C 120, C141, C116, C406, C4521, C118, C47, C4523, C215 #### [facility] [address] [facility] [address] [place] [address] Direct LDLon 01-18-2020 Cholesterol in LDL [Mass/Vol] 49 mg/dL Normal <130 [facility] Comment on above: Order Comment: Items in this order include: Cholesterol, Comprehensive Metabolic Panel, Direct LDL , HDL, Uric Acid , CBC with differential, HgbA1C, , , Slide Scan if Indicated, Manual Differential if Indicated Testing Performed By: [facility] [address] [place] [address]. [place] [address] Dr. Donnie Jean, Television Journalist Result Comment: LDL goal dependent upon individual risk Performed By: #### C 120, C141, C116, C406, C4521, C118, C47, C4523, C215 #### [facility] [address] [place] [address] HDLon 01-18-2020 Cholesterol in HDL [Mass/Vol] 30 mg/dL Low >50 [facility] Comment on above: Performed By: #### C 120, C141, C116, C406, C4521, C118, C47, C4523, C215 #### [facility] [address] [place] [address] [id number] 01-18-2020 HbA1c (Bld) [Mass fraction] 6.7 % High <5.7 [facility] Comment on above: Order Comment: Items in this order include: Cholesterol, Comprehensive Metabolic Panel, Direct LDL , HDL, Uric Acid , CBC with differential, HgbA1C, , , Slide Scan if Indicated, Manual Differential if IndicatedTesting Performed By: [facility] [facility] [address] Dr. Donnie Jean, Television Journalist Result Comment: Refe rence Interval: Normal: below 5.7%. Prediabetes: 5.7% to 6.4%. Diabetes: 6.5% or above. Performed By: #### C 709 #### [facility] [address] [place] [address] Manual Differential if Indic atedon 01-18-2020 Anisocytosis Ql (Bld) SLIGHT Normal [facility] Comment on above: Order Comment: Recei mandy comment: User comments: Slide comments: Performed By: #### C 120, C141, C116, C406, C4521, C118, C47, C4523, C215 #### [facility] [address] [place] [address] Performed By: #### C 709 #### [facility] [address] [facility] [address] [place] [address] Basophils 2 % Normal [facility] Comment on above: Order Comment: Recei mandy comment: User comments: Slide comments: Performed By: #### C 120, C141, C116, C406, C4521, C118, C47, C4523, C215 #### [facility] [address] [place] [address] [place] Cells SLIGHT Normal [facility] Comment on above: Order Comment: Recei mandy comment: User comments: Slide comments: Performed By: #### C 120, C141, C116, C406, C4521, C118, C47, C4523, C215 #### [facility] [address] [place] [address] Performed By: #### C 709 #### [facility] [address] [place] [address] Hypochromasia SLIGHT Normal SLIGHT [facility] Comment on above: Order Comment: Recei mandy comment: User comments: Slide comments: Performed By: #### C 120, C141, C116, C406, C4521, C118, C47, C4523, C215 #### [facility] [address] [place] [address] Performed By: #### C 709 #### [facility] [address] [place] [address] Lymphocytes 4 % Low 20-51 [facility] Comment on above: Order Comment: Recei mandy comment: User comments: Slide comments: Performed By: #### C 120, C141, C116, C406, C4521, C118, C47, C4523, C215 #### [facility] [address] [place] [address] Macrocytes Ql (Bld) SLIGHT Normal [facility] Comment on above: Order Comment: Recei mandy comment: User comments: Slide comments: Performed By: #### C 120, C141, C116, C406, C4521, C118, C47, C4523, C215 #### [facility] [address] [facility] [address] [place] [address] Performed By: #### C 709 #### [facility] [address] [facility] [address] [place] [address] Monocytes 3 % Normal 2-9 [facility] Comment on above: Order Comment: Recei mandy comment: User comments: Slide comments: Performed By: #### C 120, C141, C116, C406, C4521, C118, C47, C4523, C215 #### [facility] [address] [place] [address] Neutrophils 91 % High 42-75 [facility] Comment on above: Order Comment: Recei mandy comment: User comments: Slide comments: Performed By: #### C 120, C141, C116, C406, C4521, C118, C47, C4523, C215 #### [facility] [address] [place] [address] Ovalocytes SLIGHT Normal [facility] Comment on above: Order Comment: Recei mandy comment: User comments: Slide comments: Performed By: #### C 120, C141, C116, C406, C4521, C118, C47, C4523, C215 #### [facility] [address] [place] [address] Performed By: #### C 709 #### [facility] [address] [place] [address] Poikilocytosis SLIGHT Normal [facility] Comment on above: Order Comment: Recei mandy comment: User comments: Slide comments: Performed By: #### C 120, C141, C116, C406, C4521, C118, C47, C4523, C215 #### [facility] [address] [place] [address] Performed By: #### C 709 #### [facility] [address] [place] [address] Polychromasia SLIGHT Normal [facility] Comment on above: Order Comment: Jorge L galvan comment: User comments: Slide comments: Performed By: #### C 120, C141, C116, C406, C4521, C118, C47, C4523, C215 #### [facility] [address] [place] [address] Performed By: #### C 709 #### [facility] [address] [place] [address] Uric Acidon 01-18-2020 Urate [Mass/Vol] 5.2 mg/dL Normal 2.5-6.2 [facility] Comment on above: Performed By: #### C 120, C141, C116, C406, C4521, C118, C47, C4523, C215 #### [facility] [address] [place] [address] Vital Signs Date Time Vital Sign Value Performing Clinician Cici muller 01-06-2024 14:30-0500 Body height 162.6 cm Leighton Horvath MD Work Phone: [facility] 01-06-2024 14:30-0500 Body mass index (BMI) [Ratio] 29.02 kg/m2 Leighton Horvath MD Work Phone: [facility] 01-06-2024 14:30-0500 Body temperature 97.7 [degF] Leighton Horvath MD Work Phone: [facility] 01-06-2024 14:30-0500 Body weight 76.7 kg Leighton Horvath MD Work Phone: [facility] Encounters Encounter Date Encounter Type Care Provider Facility Start: 01-06-2024 End: 01-07-2024 ambulatory KEELEY GODFREY [facility] Start: 01-06-2024 End: 01-06-2024 Office outpatient visit 15 minutes Leighton Horvath MD Work Phone: [facility] Comment on above: Closed displaced fra cture of right acetabulum with routine healing, unspecified portion of acetabulum, subsequent encounter (Primary Dx) Start: 12-09-2023 End: 12-09-2023 ambulatory ANTONIO Stoddard APLING Not Available Start: 10-21-2023 End: 10-21-2023 ambulatory ANTONIO Stoddard APLING Not Available Start: 09-30-2023 End: 10-01-2023 ambulatory ANTONOI Stoddard APLING Not Available Start: 09-20-2023 End: 09-20-[address] [facility] Start: 03-08-2023 End: 03-08-2023 ambulatory BECK RENEE Facility:[facility] Start: 03-01-2023 End: 03-01-2023 ambulatory BECK RENEE Facility:[facility] Start: 02-19-2023 ambulatory BECK RENEE Facility: [facility] Start: 02-06-2023 End: 02-06-[address] SON HADLEY Facility:[facility] Start: 01-18-2023 End: 01-19-2023 ambulatory BECK RENEE Facility:[facility] Start: 01-18-2023 End: 01-18-2023 ambulatory BECK RENEE Facility:[facility] Start: 12-25-2022 End: 12-25-2022 ambulatory TRACI [facility] Start: 06-26-2022 End: 06-27-2022 ambulatory YOU BARILLAS Facility:[facility] Start: 05-08-2022 End: 05-09-[address] BENNIE ALBRIGHT . Facility:[facility] Start: 04-03-2022 End: 04-18-2022 ambulatory LOU RANDHAWA Facility:[facility] Start: 04-01-2022 End: 04-16-2022 Evaluation and management of inpatient Genaro Gordillo Facility:[facility] Start: 03-22-2022 End: 04-01-2022 Evaluation and management of inpatient DR FARSHAD DONALDSON . Facility:[facility] Start: 11-02-2021 ambulatory SPERO JOSE G Facility :[facility] Start: 08-17-2021 [facility]ulatory [facility] Start: 07-21-2020 End: 07-21-2020 Patient encounter procedure ARA COFFMAN [facility] Procedures Date Procedure Procedure Detail Performing Clinician Start: 01-06-2024 Follow-up visit Follow-up LEIGHTON HORVATH Start: 04-03-2022 Antibody screen LOU MUNIZ Comment on above: Performed By: #### 8 5499 #### [facility] [address] Plan of Treatment Date Care Activity Detail Author Start: 01-06-2025 Adult BMI Screening Adult BMI Screening [facility] Start: 01-06-2025 Tobacco Screening Tobacco Screening [facility] Start: 07-30-2024 End: 07-30-2024 Patient encounter procedure 07/30/2024 1:00 PM EDT Office Visit Amairani Lowry [facility] [address] [place] [id number] Laurel Mueller MD [address] [place] [address] [address] [place] [address] Amairani Lowry [facility] Start: 07-19-2023 COVID-19 Vaccine ( season) COVID-19 Vaccine ( season) [facility] Start: 07-19-2023 Influenza vaccination Influenza Vaccine [facility] Start: 07-09-2017 Administration of varicella zoster vaccine Zoster (Shingles) Vaccine (1 of 2) [facility] Start: 2004 Fall Risk Screening Fall Risk Screening [facility] Start: 1958 DTaP,Tdap and Td Vaccines (1 - Tdap) DTaP,Tdap and Td Vaccines (1 - Tdap) [facility] Start: 1957 Adult BMI Follow Up Plan Adult BMI Follow Up Plan [facility] Start: 1951 Depression Screening Depression Screening [facility] Start: 1939 Medicare Annual Wellness Visit Medicare Annual Wellness Visit [facility] Immunizations Immunization Date Immunization Notes Care Provider Fa cility 03-08-2022 COVID-19, mRNA, LNP- S, PF, 100mcg/0.5mL Dose Leighton Horvath MD Work Phone: [facility] 08-10-2021 pneumococcal conjuga te vaccine, 13 faraz Horvath MD Work Phone: [facility] 08-22-2020 Influenza, High-dose , Quadrivalent Leighton Hovrath MD Work Phone: [facility] 08-22-2020 pneumococcal conjuga te vaccine, 13 valent Leighton Horvath MD Work Phone: [facility] 08-22-2020 influenza virus vacc ine, unspecified formulation Leighton Horvath MD Work Phone: [facility] 05-10-2020 pneumococcal polysaccharide vaccine, 23 valent Leighton Horvath MD Work Phone: [facility] 09-21-2019 influenza, high dose seasonal, preservative-free Leighton Horvath MD Work Phone: [facility] 10-21-2018 influenza, high dose seasonal, preservative-free Leighton Horvath MD Work Phone: [facility] 05-14-2017 zoster vaccine, live Leighton Horvath MD Work Phone: [facility] 05-14-2017 zoster vaccine, unspecified formulation Leighton Horvath MD Work Phone: [facility] 09-10-2016 influenza, high dose seasonal, preservative-free Leighton Horvath MD Work Phone: [facility] 09-10-2016 pneumococcal conjuga te vaccine, 13 valent Leighton Horvath MD Work Phone: [facility] 09-01-2015 influenza, high dose seasonal, preservative-free Leighton Horvath MD Work Phone: [facility] 08-26-2014 influenza, seasonal, injectable [facility] pneumococcal polysaccharide vaccine, 23 valent [facility] 08-26-2013 influenza, seasonal, injectable Leighton Horvath MD Work Phone: [facility] Payers Date Payer Category Payer Medicare [employer] MEDICARE UHC MEDICARE ADVANTAGE PPO [id number] 2022-Present [phone] [address] [address] [place] [address] [id number] 2021 Medicaid MEDICAID [facility] EDICAID [id number] 2021-Present [phone] [address] [place] [address] [id number] 2019 Medicare [id number] 1960 Medicaid [id number] 1959 Medicare [id number] 1959 Private Health Insurance [id number] 1939 Unknown [id number] 2.16.840.1.178635.3.579. 2.900 1939 Unknown [id number] 2.16.840.1.100480.3.579. 2.594 1939 Unknown [id number] 2.16.840.1.772755.3.579. 2.594 1939 Unknown [id number] 2.16.840.1.017008.3.579. 2.594 1939 Unknown [id number] 2.16.840.1.165147.3.579. 2.647 1939 Unknown [id number] 2.16.840.1.234912.3.579. 2.647 1939 Unknown [id number] 2.16.840.1.828471.3.579. 2.647 1939 Unknown [id number] 2.16.840.1.477854.3.579. 2.593 1939 Unknown [id number] 2.16.840.1.690423.3.579. 2.593 1939 Unknown [id number] 2.16.840.1.127790.3.579. 2.593 1939 Unknown [id number] 2.16.840.1.686973.3.579. 2.593 1939 Unknown [id number] 2.16.840.1.596952.3.579. 2.593 1939 Unknown [id number] 2.16.840.1.028021.3.579. 2.593 1939 Unknown [id number] 2.16.840.1.050887.3.579. 2.593 1939 Unknown [id number] 2.16.840.1.627210.3.579. 2.593 1939 Unknown [id number] 2.16.840.1.633821.3.579. 2.1259 1939 Unknown [id number] 2.16.840.1.394744.3.579. 2.1259 1939 Unknown [id number] 2.16.840.1.198558.3.579. 2.1259 1939 Unknown [id number] 2.16.840.1.121273.3.579. 2.1259 1939 Unknown [id number] 2.16.840.1.758121.3.579. 2.1286 1939 Unknown [id number] 2.16.840.1.706883.3.579. 2.1286 Social History Date Type Detail Facility Start: 02-07-2023 Tobacco smoking stat [facility] Ex-smoker [facility] History of tobacco use Current smoker [facility] History of tobacco use Cigarette Smoker P [facility] Start: 02-07-2023 Tobacco use and exposure Smokeless tobacco non-user [facility] Start: 01-07-2024 Alcohol intake Ex-drinker (finding) [facility] Start: 01-06-2024 End: 01-07-2024 History of Social function [facility] Start: 01-06-2024 End: 01-07-2024 Tobacco use panel [facility] Are you worried or concerned that in the next two months you may not have stable housing that you own, rent or stay in as a part of a household? No [facility] Start: 1940 Sex Assigned At Female P [facility] Medical Equipment Procedure Code Equipment Code Equipment Origin al Text Equipment Identifier Dates Plate Bn [id number] m 1/3 Tblr 6 Hl Colr Ss .5mm 12mm Ns - [id number] Start: 02-08-2023 Screw Bn 26mm 4m m 6mm Sm Hex Sckt Canc Ss 2.5mm Ft Ns Sm - [id number] Start: 02-08-2023 Goals Date Patient Goal [...] Leighton Horvath MD documented in this encounter [facility] Progress note 09-20-2023 Note Date & Type Note Facility 09-20-2023 Note NM Cardiology - [facility] Subjective María Elena Tafoya is [...] in March 2022 was admitted to the [facility] and then [facility] [...] thickness/hypertrophy. Systolic function (more content not included)... [facility] Progress note 12-25-2022 Note Date & Type Note Facility 12-25-2022 Note Cardiovascular Medic [facility] SUBJECTIVE Chief Complaint Patient presents with Atrial Fibrillation María Elena Tafoya is a 82 y.o. female here for follow-up. HPI She is an 82-year-old woman who was admitted in March 2022 to [facility] and then [facility] [...] POC 06/26/2022 11 (more content not included)... [facility] Progress note 12-25-2022 Note Date & Type Note Facility 12-25-2022 Note Patient here for fol low up VT on event monitor per Dr. Leos. Patient denies chest pain and SOB. Feels good. Review of Systems All other systems reviewed and are negative. [facility] Discharge summary note 04-16-2022 Note Date & Type Note Facility 04-16-2022 Note MR#: [id number] [facility] Pt. Name: María Elena Tafoya Admitted: [...] Gordillo MD Date Trans: 04/16/2022 09:55 A/erik [id number] cc: Bennie Albright M.D. [address] [address] [facility] Discharge summary note 04-13-2022 Note Date & Type Note Facility 04-13-2022 Note MR#: [id number] I [facility] Pt. Name: María Elena Tafoya Admitted: [...] history as above, who was transferred from [facility] secondary to gallstone induced acute pancreatitis. [...] to repeat a voiding trial at the intermediate in 1-3 days and follow up with provider at that facility, however, her discharge is currently pending precert, so if she does remain at this facility, we may also just discontinue (more content not included)... 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 [employer] Latest Code Status on File Code Status Date Activated Date Inactivated Comments Full Code 02/07/2023 12:03 AM 02/12/2023 3:45 [employer] Name Relationship Healthcare Agent Relationship Communication Andreea Liz Health Care Agent [email or web address] Additional Source Comments INFORMATION SOURCE (unrecogn ized section and content) DATE CREATED AUTHOR 02/04/2020 [facility] DATE CREATED AUTHOR AUTHOR'S ORGANIZ ATION 08/23/2020 [facility] DATE CREATED AUTHOR AUTHOR'S ORGANIZ ATION 09/28/2020 [facility] DATE CREATED AUTHOR AUTHOR'S ORGANIZ ATION 02/12/2021 [facility] DATE CREATED AUTHOR AUTHOR'S ORGANIZ ATION 02/07/2022 [facility] DATE CREATED AUTHOR AUTHOR'S ORGANIZ ATION 07/13/2022 [facility] DATE CREATED AUTHOR AUTHOR'S ORGANIZ ATION 03/15/2023 [facility] DATE CREATED AUTHOR AUTHOR'S ORGANIZ ATION 09/21/2023 [facility] DATE CREATED AUTHOR AUTHOR'S ORGANIZ ATION 12/09/2023 [facility] DATE CREATED AUTHOR AUTHOR'S ORGANIZ ATION 01/08/2024 [facility] Reason for Visit (unrecogniz ed section [...] BE BASED ON THE PRIMARY CLINICAL RECORDS. [facility]. provides no warranty or guarantee of the accuracy or completeness of information in this document.
[2024-04-03 10:17] LABS: Thyroid Stimulating Hormone 3.634 uIU/mL (0.358-3.740)
== END 2024-04-03 02:41 | disposition home or self-care (01) ==
LOC: LAB 02:40
PROVIDERS: PCP Family Medicine; Visit Provider Family Medicine
DX: E03.9 Hypothyroidism, unspecified (principal)
CPT/HCPCS: 36415; 84443

== ENCOUNTER 2024-04-10 01:03 | Outpatient (REF) | payer MEDICARE, MEDICAID, SELFPAY ==
--- OUTSIDE RECORDS SUMMARY | 2024-04-10 01:07 | XMS_ITS | CCD ---
Author Organization [facility] Informat ion [facility] Care Team Providers Care [facility] Staff Pharmacist Name Role Phone ARA ROBB Attending Unavailable [...] Care Unavailable VÍCTOR, BECK Primary Care Unavailable HOY ., DR AVERY Admitting Unavailable HOY ., DR AVERY Attending Unavailable HOY ., DR AVERY Consulting Unavailable VÍCTOR, BECK Primary Care Unavailable ERVIN, BARRAGAN Admitting Unavailable LUAREL MUELLER Attending Unavailable ERVIN, BARRAGAN Consulting Unavailable VÍCTOR, BECK Primary Care Unavailable TRACI CARMICHAEL Attending Unavailable JESSICA CARMICHAELA Jany Consulting Unavailable JOSE CARMICHAELINDA C Admitting Unavailable VÍCTOR, BECK Primary Care Unavailable AMOL, TRACI C Admitting Unavailable TRACI CARMICHAEL C Attending Unavailable HOGauri ., DR AVERY Admitting Unavailable HOY ., DR AVERY Attending Unavailable HOY ., DR AVERY Consulting Unavailable QUINCY, DR ROGE Shoemaker Consulting Unavailable JOMAR, DR SON Azevedo Attending UnavailBECK Johnson Primary Care Unavailable JOMAR, DR SON Azevedo Consulting Unavaildario HADLEY, DR SON Azevedo Admitting Unavailabl milton WATSON ., TRUPTI MAKI Consulting UnavailFERMÍN Gomez Consulting Unavailable ROGE GORDON Consulting Unavailable MARIETTA MARTEL Consulting Unavailable UNLUCLARA Consulting Unavailable MENDOZA ., DR FARSHAD Rose [...] H Consulting Unavailable BROOKE COSTELLO Consulting Unavailable ROGE VIDAL Consulting Unavailable KERRI SCHULTZ Consulting Unavailable CATRACHO LEWIS Consulting Unavailable BECK RENEE Primary Care Unavailable NATALEE ., DR AVERY Admitting Unavailable HOGauri ., DR AVERY Attending Unavailable NATALEE ., DR AVERY Consulting Unavailable TRACI CARMICHAEL Attending Unavailable RIAUKAMARY LOU MCNULTY Attending Unavailable APLINGANTONIO Attending Unavailable APLINGANTONIO Attending Unavailable APLINGANTONIO Attending Unavailable APLINGANTONIO Referring Unavailable Unavailable Primary Care Provider UnavailKEELEY Lopez Referring Unavailable LEIGHTON HORVATH Attending Unavailabl e Allergies Allergy Classification Reported Allergen(s) Allergy Type Date of Onset Reaction(s) Facility (2 sources) Ciprofloxacin Drug Allergy 03-23-2022 [facility] Repository (2 sources) Dexamethasone; Translations: [DEXAMETHASONE] Drug Allergy 06-27-2023 [facility] (2 sources) Erythromycin; Translations: [ERYTHROMYCIN BASE] Drug Allergy 06-27-2023 [facility] (2 sources) Neomycin; Translations: [NEOMYCIN SULFATE] Drug Allergy 06-27-2023 [facility] (2 sources) Polymyxin B; Translations: [POLYMYXIN B] Drug Allergy 06-27-2023 [facility] (2 sources) Tobramycin; Translations: [TOBRAMYCIN] Drug Allergy 06-27-2023 [facility] Medications Current Medications Medication Drug [...] 30 days. 0 Active polyethylene glycol 3350 65486 mg powder for oral solution (1 source) Osmotic Laxative polyethylene gl ycol (GLYCOLAX) 17 gram packet Take 17 g by mouth daily as needed (constipation). 0 Active sennosides, mcc 8.6 mg oral tablet (1 source) senna [...] 01-18-2022 Chronic Other aftercare (5 sources) Other intermediate (current) drug therapy; Translations: [[facility] CURRENT DRUG THERAPY] Onset: 02-08-2023 Episodic Other aftercare (1 source) watermaster (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 of aspirin; Translations: [[facility] CURRENT USE OF ASPIRIN] Onset: 03-06-2023 Episodic Other aftercare (1 source) watermaster (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 of non-steroidal anti-inflammatories (NSAID); Translations: [[facility] USE NSAID] Onset: 02-08-2023 Episodic Other connective [...] Onset: 04-05-2022 Episodic Other aftercare (1 source) watermaster (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 of insulin; Translations: [[employer] CURRENT USE OF INSULIN] Onset: 04-05-2022 Episodic Other aftercare (1 source) watermaster (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 of anticoagulants; Translations: [[facility] CURRNT USE ANTICOAGULANTS] Onset: 04-05-2022 Episodic Other [...] Sanders MD on 01/07/2024 3:35 AM Normal [facility] Office Visiton 09-20-2023 Follow-up visit [id number] Jennifer Tafoya Kate 1940 F Date Provider Department Center 09/20/2023 MARY LOU FELIZ [facility] Family History Problem Relation Age of Onset Diabetes Sister Diabetes Brother Diabetes Maternal Grandfather Family Status - Relation Status Age at Sister Brother Maternal Grandfather Level of Service:67484 CO OFFICE/OUTPATIENT ESTABLISHED MOD MDM 30-39 MIN Reason for Visit and Comments: Follow-up [537224] Normal [facility] CBC W MANUAL DIFFon 03-08-20 ANISOCYTOSIS 1+ Normal [facility] Comment on above: Performed By: #### C BCMAN ####[facility] [address] [place] [address]Dr. Bhavani [facility] ATYPICAL LYMPH # Normal [facility] Comment on above: Performed By: #### C BCMAN ####[facility] [address]tvbwpsk[address] [place] [address]Dr. Bhavani Barragan ATYPICAL LYMPH % Normal [facility] Comment on above: Performed By: #### C BCMAN ####[facility] [address]mtkyeftlv[address] [place] [address]Dr. Jayceelan Barragan BAND # 1.3 103/ul Critically high 0.0-0.3 The [facility] Comment on above: Performed By: #### C BCMAN ####[facility] Zgveukuqpx[address] [place] [address]Dr. Jayceelan Barragan BAND % 4 % Normal 0-5 [facility] Comment on above: Performed By: #### C BCMAN ####[facility] Gjigbywigc[address] [place] [address]Dr. Bhavani Barragan BASOM # 0.00 103/ul Normal 0.00-0.10 [facility] Comment on above: Performed By: #### C OMID ####[facility] Cibilkcakn[address] [place] [address]Dr. Bhavani Barragan BASOM % 0.0 % Critically low 0.2-2.0 The [facility] Comment on above: Performed By: #### C BCJERSON ####[facility] [address]mn[address] [place] [address]Dr. Bhavani Barragan BLAST # Normal [facility] Comment on above: Performed By: #### C BCJERSON ####[facility] Dhqlwaxfqu[address] [place] [address]Dr. Bhavani Barragan BLAST % Normal [facility] Comment on above: Performed By: #### C OMID ####[facility] [address] [place], [place] [address]Dr. Bhavani Barragan CORRECTED WBC Normal 4.0-11.0 The [facility] Comment on above: Performed By: #### C OMID ####[facility] [address] [place], [place] [address]Dr. Bhavani Barragan EOS # 0.00 103/ul Normal 0.00-0.70 [facility] Comment on above: Performed By: #### C OMID ####[facility] [address] [place], [place] [address]Dr. Bhavani Barragan EOS% 0.0 % Critically low 0.9-7.0 The [facility] Comment on above: Performed By: #### C OMID ####[facility] Bhfeus[address] [place], [place] [address]Dr. Bhavani Barragan HCT 38.1 % Normal 36.0-48.0 [facility] Comment on above: Performed By: #### C OMID ####[facility] [address] [place], [place] [address]Dr. Bhavani Barragan HGB 11.6 g/dl Critically low 12.0-16.0 The [facility] Comment on above: Performed By: #### C OMID ####[facility] Emwoe[address] [place], [place] [address]Dr. Bhavani Barragan LYMPHM # 1.58 103/ul Normal 1.20-3.80 [facility] Comment on above: Performed By: #### C OMID ####[facility] [address]xcbxndjc[address] [place] [phone]. Bhavani Barragan LYMPHM% 5.0 % Critically low 20.5-60.0 The [facility] Comment on above: Performed By: #### C OMID ####[facility] [address]wipside[address] [place] [phone]. Bhavani Barragan MCH 29.7 pg Normal 26.7-34.0 [facility] Comment on above: Performed By: #### C OMID ####[facility] Megivnzhwr6054 [place] [phone]. Bhavani Barragan MCHC 30.4 g/dl Normal 29.9-35.2 [facility] Comment on above: Performed By: #### C OMID ####[facility] [address] [place], [place] [address]Dr. Bhavani Barragan MCV 97.7 fL Normal 81.0-99.0 [facility] Comment on above: Performed By: #### C OMID ####[facility] We[address] [place], [place] [address]Dr. Bhavani Barragan METAMYELOCYTE # Normal [facility] Comment on above: Performed By: #### C OMID ####[facility] [address]jicbfcn[address] [place] [phone]. Bhavani Barragan METAMYELOCYTE % Normal [facility] Comment on above: Performed By: #### C OMID ####[facility] Hvvdllmyzj036[address] [place] [phone]. Bhavani Barragan MONOM# 0.95 103/ul Critically high 0.30-0.80 [facility] Comment on above: Performed By: #### C OMID ####[facility] Kdqafexroi9050 [place] [phone]. Bhavani Barragan MONOM% 3.0 % Normal 1.7-12.0 [facility] Comment on above: Performed By: #### C OMID ####[facility] [address] [place], [place] [address]Ly. Bhavani Barragan MPV 10.6 fL Normal 9.5-13.5 [facility] Comment on above: Performed By: #### C OMID ####[facility] [address]ju[address] [place], [place] [address]Sv. Bhavani Barragan MYELOCYTE # Normal [facility] Comment on above: Performed By: #### C OMID ####[facility] [address]burlcx[address] [place] [phone]. Bhavani Barragan MYELOCYTE % Normal [facility] Comment on above: Performed By: #### C OMID ####[facility] Hmrzpiluop5[address] [place] [phone]. Bhavani Barragan NRBC Normal [facility] Comment on above: Performed By: #### C OMID ####[facility] Faqfb[address]nua40[address] [place] [phone]. Bhavani Barragan PLT 280 103/ul Normal 150-450 [facility] Comment on above: Performed By: #### C OMID ####[facility] Wq[address]emobelc[address] [place] [phone]. Bhavani Barragan RBC 3.90 106/ul Critically low 4.20-5.40 [facility] Comment on above: Performed By: #### C OMID ####[facility] Yfcpvjhqqp34[address] [place] [phone]. Bhavani Barragan RDW 18.2 % Critically high 11.0-15.0 The [facility] Comment on above: Performed By: #### C OMID ####[facility] Dlghvlynjb4[address] [place] [phone]. Bhavani Barragan SEG # 27.90 103/ul Critically high 1.40-6.50 [facility] Comment on above: Performed By: #### C OMID ####[facility] Lqymghdfbb3761 [place] [phone]. Bhavani Barragan SEG % 88.0 % Critically high 43.0-75.0 [facility] Comment on above: Performed By: #### C OMID ####[facility] Ybhmdigujp50[address] [place] [phone]. Bhavani Barragan WBC 31.7 103/ul Critically high 4.0-11.0 [facility] Comment on above: Performed By: #### C OMID ####[facility] Rpjbvtunhn36[address] [place] [phone]. Bhavani Barragan PERIPHERAL SMEARon 3 Pathologist Cyto stain Nom (Cvx/Vag) [ID] DR. AFTAB SCHAFER Normal The [facility] Comment on above: Result Comment: Revi ew of peripheral smear reveals RBCs with anisocytosis. The platelets areadequate in number with normal morphology. There is leukocytosis withneutrophilia. The WBC morphology is unremarkable. No atypical lymphocytes orimmature blasts are seen. The findings are suggestive of a reactive process.Clinical correlation is recommended. Performed By: #### P ERSMR ####[facility] [address] [place] [address]Dr. Bhavani Barragan CBC W MANUAL DIFFon 03-01-20 23 ANISOCYTOSIS 1+ Normal [facility] Comment on above: Performed By: #### C OMID ####[facility] Wyunvyaegr[address] [place] [address]Dr. Bhavani Barragan ATYPICAL LYMPH # Normal [facility] Comment on above: Performed By: #### C OMID ####[facility] Gtbodsmkpb2135 [place] [phone]. Bhavani Barragan ATYPICAL LYMPH % Normal [facility] Comment on above: Performed By: #### C OMID ####[facility] Nks[address]rxiyd74[address] [place] [phone]. Bhavani Barragan BAND # 1.8 103/ul Critically high 0.0-0.3 [facility] Comment on above: Performed By: #### C OMID ####[facility] Yhhfqhsmup2714 [place] [phone]. Bhavani Barragan BAND % 5 % Normal 0-5 [facility] Comment on above: Performed By: #### C OMID ####[facility] Heruiatatu[address] [place] [address]Dr. Bhavani Barragan BASOM # 0.00 103/ul Normal 0.00-0.10 [facility] Comment on above: Performed By: #### C BCMAN ####[facility] Exwzxdeaau[address] [place] [address]Dr. Bhavani Barragan BASOM % 0.0 % Critically low 0.2-2.0 The [facility] Comment on above: Performed By: #### C BCMAN ####[facility] Ronvytlzyv[address] [place] [address]Dr. Bhavani Barragan BLAST # Normal [facility] Comment on above: Performed By: #### C BCMAN ####[facility] [address] [place], [place] [address]Dr. Bhavani Barragan BLAST % Normal [facility] Comment on above: Performed By: #### C BCJERSON ####[facility] Spe[address]uxhm[address] [place], [place] [address]Dr. Bhavani Barragan CORRECTED WBC Normal 4.0-11.0 The [facility] Comment on above: Performed By: #### C BCMAN ####[facility] Kuw[address] [place], [place] [address]Dr. Bhavani Barragan EOS # 0.00 103/ul Normal 0.00-0.70 [facility] Comment on above: Performed By: #### C BCMAN ####[facility] Viyevozqcw[address] [place], [place] [address]Dr. Bhavani Barragan EOS% 0.0 % Critically low 0.9-7.0 [facility] Comment on above: Performed By: #### C BCMAN ####[facility] Budk[address]utfu[address] [place], [place] [address]Dr. Bhavani Barragan HCT 32.6 % Critically low 36.0-48.0 The [facility] Comment on above: Performed By: #### C BCMAN ####[facility] [address]vid[address]xcc[address] [place], [place] [address]Dr. Bhavani Barragan HGB 10.0 g/dl Critically low 12.0-16.0 [facility] Comment on above: Performed By: #### Jany ANNE ####[facility] [address]exqkdtzbs4[address] [place] [phone]. Bhavani Barragan LYMPHM # 1.75 103/ul Normal 1.20-3.80 [facility] Comment on above: Performed By: #### Jany ANNE ####[facility] Lioclgtoiz[address] [place] [phone]. Bhavani Barragan LYMPHM% 5.0 % Critically low 20.5-60.0 [facility] Comment on above: Performed By: #### Jany ANNE ####[facility] Prnplwnquv0348 [place] [phone]. Bhavani Barragan MCH 29.6 pg Normal 26.7-34.0 [facility] Comment on above: Performed By: #### Jany ANNE ####[facility] Xvgijarktj1618 [place] [phone]. Bhavani Barragan MCHC 30.7 g/dl Normal 29.9-35.2 [facility] Comment on above: Performed By: #### Jany ANNE ####[facility] Ujhkevcvdu0529 [place] [phone]. Bhavani Barragan MCV 96.4 fL Normal 81.0-99.0 [facility] Comment on above: Performed By: #### Jany ANNE ####[facility] Ywwfttxkjp8799 [place] [phone]. Bhavani Barragan METAMYELOCYTE # Normal [facility] Comment on above: Performed By: #### Jany ANNE ####[facility] Wstbyrayva4725 [place] [phone]. Bhavani Barragan METAMYELOCYTE % Normal [facility] Comment on above: Performed By: #### Jany ANNE ####[facility] [address]uz[address] [place], [place] [address]Dr. Bhavani Barragan MONOM# 0.70 103/ul Normal 0.30-0.80 [facility] Comment on above: Performed By: #### Jany ANNE ####[facility] Ugbztmdwpb73[address] [place] [phone]. Bhavani Barragan MONOM% 2.0 % Normal 1.7-12.0 [facility] Comment on above: Performed By: #### C OMID ####[facility] Fzywlsvtzh9[address] [place] [phone]. Bhavani Barragan MPV 9.8 fL Normal 9.5-13.5 [facility] Comment on above: Performed By: #### C OMID ####[facility] Pbgpmeiamn4479 [place] [phone]. Bhavani Barragan MYELOCYTE # Normal [facility] Comment on above: Performed By: #### C OMID ####[facility] Xccfcnglwk8880 [place] [phone]. Bhavani Barragan MYELOCYTE % Normal [facility] Comment on above: Performed By: #### C OMID ####[facility] Rjbwcsfyfd0139 [place] [phone]. Bhavani Barragan NRBC Normal [facility] Comment on above: Performed By: #### C OMID ####[facility] Bllhpsbhcb6102 [place] [phone]. Bhavani Barragan PLT 382 103/ul Normal 150-450 [facility] Comment on above: Performed By: #### C OMID ####[facility] Mtrijxadsq6164 [place] [phone]. Bhavani Barragan RBC 3.38 106/ul Critically low 4.20-5.40 [facility] Comment on above: Performed By: #### C OMID ####[facility] Byphlhblvn9179 [place] [phone]. Bhavani Barragan RDW 17.7 % Critically high 11.0-15.0 [facility] Comment on above: Performed By: #### C OMID ####[facility] Znhuvpbhxc1184 [place] [phone]. Bhavani Barragan SEG # 30.80 103/ul Critically high 1.40-6.50 [facility] Comment on above: Performed By: #### C OMID ####[facility] [address] [place], [place] [address]Dr. Bhavani Barragan SEG % 88.0 % Critically high 43.0-75.0 [facility] Comment on above: Performed By: #### C OMID ####[facility] Eirmogaieg[address] [place] [address]Dr. Jayceeroxi Laurel WBC 35.0 103/ul Critically high 4.0-11.0 [facility] Comment on above: Performed By: #### C OMID ####[facility] Nxmovbjkun34[address] [place] [address]Dr. Bhavani Barragan PROF 14(COMP METB)on 023 Albumin [Mass/Vol] 2.6 g/dL Critically low 3.4-5.[address] [facility] Comment on above: Performed By: #### C ALISTAIR, TSH ####[facility] Dsfpzmofnm34[address] [place] [address]Dr. Bhavani Barragan Albumin/Globulin [Mass ratio] 0.6 {ratio} Normal [facility] Comment on above: Performed By: #### C ALISTAIR, TSH ####[facility] Phnfjrhmxc3786 [place] [address]Dr. Bhavani Barragan ALP [Catalytic activity/Vol] 117 U/L Critically high 46-116 [facility] Comment on above: Performed By: #### C ALISTAIR, TSH ####[facility] Sienbdoqfb15[address] [place] [address]Dr. Bhavani Barragan ALT [Catalytic activity/Vol] 11 U/L Critically low 14-59 [facility] Comment on above: Performed By: #### C MP, TSH ####[facility] Mamqioaglq34[address] [place] [address]Dr. Bhavani Barragan Anion gap [Moles/Vol] 13.0 mmol/L Normal [facility] Comment on above: Performed By: #### C MP, TSH ####[facility] Eoplnfqgaf7193 [place] [address]Dr. Bhavani Barragan AST [Catalytic activity/Vol] 19 U/L Normal 15-37 [facility] Comment on above: Performed By: #### C ALISTAIR, TSH ####[facility] [address]pbalmj[address] [place], [place] [address]Dr. Bhavani Barragan Bilirubin [Mass/Vol] 0.4 mg/dL Normal 0.2-1.0 [facility] Comment on above: Performed By: #### C MP, TSH ####[facility] K[address]baoiqgff[address] [place], [place] [address]Dr. Bhavani Barragan Calcium [Mass/Vol] 8.9 mg/dL Normal 8.5-10.1 [facility] Comment on above: Performed By: #### C MP, TSH ####[facility] Xfsikptvde[address] [place], [place] [address]Dr. Bhavani Barragan Chloride [Moles/Vol] 103 mmol/L Normal 98-107 [facility] Comment on above: Performed By: #### C MP, TSH ####[facility] [address]mscmlw[address] [place], [place] [address]Dr. Bhavani Barragan CO2 [Moles/Vol] 26.8 mmol/L Normal 21.0-32.0 [facility] Comment on above: Performed By: #### C MP, TSH ####[facility] Tigoickulc[address] [place], [place] [address]Dr. Bhavani Barragan Creatinine [Mass/Vol] 1.44 mg/dL Critically high 0.55-1.02 [facility] Comment on above: Performed By: #### C MP, TSH ####[facility] Hmpcaj[address]ely[address] [place], [place] [address]Dr. Bhavani Barragan EGFR-AF MALDIVIAN 42 mL/min/1.73m2 Critically low >=60 [facility] Comment on above: Performed By: #### C MP, TSH ####[facility] Opcdzhylix[address] [place], [place] [address]Dr. Bhavani Barragan EGFR-NON AF MALDIVIAN 35 mL/min/1.73m2 Critically low >=60 [facility] Comment on above: Performed By: #### C MP, TSH ####[facility] [address] [place], [place] [address]Dr. Bhavani Barragan Globulin (S) [Mass/Vol] 4.4 g/dL Normal [facility] Comment on above: Performed By: #### C MP, TSH ####[facility] Eezlkkaxsk8[address] [place] [phone]. Bhavani Barragan Glucose [Mass/Vol] 90 mg/dL Normal 74-106 [facility] Comment on above: Performed By: #### C MP, TSH ####[facility] Rzunqkzvlj28[address] [place] [phone]. Bhavani Barragan Potassium [Moles/Vol] 4.8 mmol/L Normal 3.5-5.1 [facility] Comment on above: Performed By: #### C MP, TSH ####[facility] Qjfluhvznh34[address] [place] [address]Dr. Bhavani Barragan Protein [Mass/Vol] 7.0 g/dL Normal 6.4-8.2 [facility] Comment on above: Performed By: #### C MP, TSH ####[facility] Edzsxpdfuk36[address] [place] [address]Dr. Bhavani Barragan Sodium [Moles/Vol] 138 mmol/L Normal 136-145 [facility] Comment on above: Performed By: #### C MP, TSH ####[facility] Iihutugqht80[address] [place] [address]Dr. Bhavani Barragan Urea nitrogen [Mass/Vol] 32.0 mg/dL Critically high 7.0-18.0 [facility] Comment on above: Performed By: #### C MP, TSH ####[facility] Afftpmdrqp[address] [place] [address]Dr. Bhavani Barragan Urea nitrogen/Creatinine [Mass ratio] 22.2 mg/mg Normal [facility] Comment on above: Performed By: #### C MP, TSH ####[facility] Kmjigjbnyz4375 [place] [phone]. Bhavani Barragan TSHon 03-01-2023 TSH 3.630 uIU/mL Normal 0.358-3.740 [facility] Comment on above: Performed By: #### C MP, TSH ####[facility] Qojfzqxuun[address] [place] [address]Dr. Bhavani Barragan CULTURE URINEon 02-09-2023 CULTURE URINE Normal [facility] Comment on above: Performed By: #### U RCX ####[facility] Uvgvvhuhsv[address] [place] [address]Dr. Bhavani Barragan CBC W MANUAL DIFFon 02-07-20 23 ANISOCYTOSIS 1+ Normal [facility] Comment on above: Performed By: #### C BCJERSON ####[facility] Rpumkhdmyc[address] [place] [address]Dr. Bhavani Barragan ATYPICAL LYMPH # Normal [facility] Comment on above: Performed By: #### C BCJERSON ####[facility] Ugbltskpel04[address] [place] [address]Dr. Bhavani Barragan ATYPICAL LYMPH % Normal [facility] Comment on above: Performed By: #### C BCMAN ####[facility] [address]is[address] [place], [place] [address]Dr. Bhavani Barragan BAND # 1.2 103/ul Critically high 0.0-0.3 The [facility] Comment on above: Performed By: #### C BCMAN ####[facility] Pbemumynoj[address] [place], [place] [address]Dr. Jayceelan Barragan BAND % 5 % Normal 0-5 The [facility] Comment on above: Performed By: #### C BCJERSON ####[facility] Hfdvcr[address]ynj[address] [place], [place] [address]Dr. Bhavani Barragan BASOM # 0.00 103/ul Normal 0.00-0.10 The [facility] Comment on above: Performed By: #### C BCJERSON ####[facility] Ucmzkghzox[address] [place] [address]Dr. Bhavani Barragan BASOM % 0.0 % Critically low 0.2-2.0 The [facility] Comment on above: Performed By: #### C BCMAN ####[facility] [address]pe[address]wl[address] [place], [place] [address]Dr. Jayceelan Barragan BLAST # Normal The [facility] Comment on above: Performed By: #### C BCJERSON ####[facility] [address]yjfznlv[address] [place], [place] [address]Dr. Yilan Barragan BLAST % Normal The [facility] Comment on above: Performed By: #### C OMID ####[facility] Rdztzddxbd7133 [place] [phone]. Bhavani Barragan CORRECTED WBC Normal 4.0-11.0 The [facility] Comment on above: Performed By: #### C OMID ####[facility] Fzcpgqiyqf8625 [place] [phone]. Bhavani Barragan EOS # 0.00 103/ul Normal 0.00-0.70 The [facility] Comment on above: Performed By: #### C OMID ####[facility] Usnnkqkhga2897 [place] [phone]. Bhavani Barragan EOS% 0.0 % Critically low 0.9-7.0 The [facility] Comment on above: Performed By: #### C OMID ####[facility] Rdyjyaresv6834 [place] [phone]. Bhavani Barragan HCT 39.3 % Normal 36.0-48.0 The [facility] Comment on above: Performed By: #### C OMID ####[facility] Aqmoabcbbu7782 [place] [phone]. Bhavani Barragan HGB 12.6 g/dl Normal 12.0-16.0 The [facility] Comment on above: Performed By: #### C OMID ####[facility] Pivqpbavnz4528 [place] [phone]. Bhavani Barragan LYMPHM # 2.11 103/ul Normal 1.20-3.80 The [facility] Comment on above: Performed By: #### C OMID ####[facility] Xwfvvjjpwd7123 [place] [phone]. Bhavani Barragan LYMPHM% 9.0 % Critically low 20.5-60.0 The [facility] Comment on above: Performed By: #### C OMID ####[facility] [address] [place], [place] [address]Dr. Bhaavni Barragan MCH 29.6 pg Normal 26.7-34.0 The [facility] Comment on above: Performed By: #### C OMID ####[facility] Wlbtfvlwfy8988 [place] [phone]. Bhavani Barragan MCHC 32.1 g/dl Normal 29.9-35.2 The [facility] Comment on above: Performed By: #### C OMID ####[facility] Cjavsyiasz8995 [place] [phone]. Bhavani Barragan MCV 92.3 fL Normal 81.0-99.0 The [facility] Comment on above: Performed By: #### C OMID ####[facility] Yjfvefnutf2996 [place] [phone]. Bhavani Barragan METAMYELOCYTE # Normal The [facility] Comment on above: Performed By: #### C OMID ####[facility] Xktsuxputp4879 [place] [phone]. Bhavani Barragan METAMYELOCYTE % Normal The [facility] Comment on above: Performed By: #### Jany ANNE ####[facility] F[address]aw[address] [place], [place] [address]Dr. Bhavani Barragan MONOM# 0.94 103/ul Critically high 0.30-0.80 The [facility] Comment on above: Performed By: #### Jany ANNE ####[facility] Hxfycedemr1490 [place] [phone]. Bhavani Barragan MONOM% 4.0 % Normal 1.7-12.0 [facility] Comment on above: Performed By: #### Jany ANNE ####[facility] Zitomalizi2825 [place] [phone]. Bhavani Barragan MPV 11.0 fL Normal 9.5-13.5 The [facility] Comment on above: Performed By: #### C OMID ####[facility] Wicgcbdumd1277 [place] [phone]. Bhavani Barragan MYELOCYTE # Normal The [facility] Comment on above: Performed By: #### C OMID ####[facility] Aktykvhqra3082 [place] [phone]. Bhavani Barragan MYELOCYTE % Normal The [facility] Comment on above: Performed By: #### C OMID ####[facility] [address] [place], [place] [address]Cq. Bhavani Barragan NRBC Normal The [facility] Comment on above: Performed By: #### C OMID ####[facility] Hkphwaezee1161 [place], [place] [address]Uh. Bhavani Barragan PLT 198 103/ul Normal 150-450 The [facility] Comment on above: Performed By: #### C OMID ####[facility] Ossxtsghhk6480 [place], [place] [address]Pf. Bhavani Barragan RBC 4.26 106/ul Normal 4.20-5.40 The [facility] Comment on above: Performed By: #### C OMID ####[facility] Cxaofuodyq1208 [place], [place] [address]Oz. Bhavani Barragan RDW 16.3 % Critically high 11.0-15.0 The [facility] Comment on above: Performed By: #### C OMID ####[facility] Uuysqbfdcs6784 [place] [phone]. Bhavani Barragan SEG # 19.19 103/ul Critically high 1.40-6.50 The [facility] Comment on above: Performed By: #### C OMID ####[facility] Opunxryzlk1955 [place], [place] [address]Wm. Bhavani Barragan SEG % 82.0 % Critically high 43.0-75.0 The [facility] Comment on above: Performed By: #### C OMID ####[facility] Arsdjodclt[address] [place], [place] [address]Hb. Bhavani Barragan WBC 23.4 103/ul Critically high 4.0-11.0 The [facility] Comment on above: Performed By: #### C OMID ####[facility] Dmxzwwlwvt8146 [place] [phone]. Bhavani Barragan CT LSPINE WO CONon 3 CT LSPINE WO CON Normal The [facility] CT PELVIS WO CONon 3 CT PELVIS WO CON Normal The [facility] CULTURE BLOODon 02-06-2023 Microscopic examination of blood, culture Culture Observations: NO GROWTH AT 5 DAYS. Normal The [facility] Comment on above: Performed By: #### B LDCX2 ####[facility] Vhrhlbahfz37[address] [place] [address]DrLydia Barragan Performed By: #### B LDCX1 ####[facility] Jjqtuatcnf9608 [place] [address]DrLydia Barragan Covid-19 PCR (CVDTB)on 01-17 SARS-CoV-2 (COVID-19) RNA MATTHEW+probe Ql (Unsp spec) Not detected Normal NOT DETECTED The [facility] Comment on above: Result Comment: When [...] for this test is supported by the Financial Assistance Specialist of Health and Human Service's declaration that [...] be used). Performed By: #### C VDTBH ####[facility] Chlcfwkdku90[address] [place] [address]Dr. Bhavani Barragan ER URINE PROFILEon 3 Bilirubin Ql (U) Negative Normal NEGATIVE The [facility] Comment on above: Performed By: #### U MICRO, ERUR ####[facility] Fzxzgomyyx4222 [place] [address]DrLydia Barragan Clarity (U) SL CLOUDY Abnormal CLEAR The [facility] Comment on above: Performed By: #### U MICRO, ERUR ####[facility] Vybahhmkws2996 [place] [address]DrLydia Barragan Color (U) LT. YELLOW Normal YELLOW The [facility] Comment on above: Performed By: #### U MICRO, ERUR ####[facility] Izgngmihij45[address] [place] [address]Dr. Bhavani FERMIN A micrscopic examination will be performed if indicated. Normal The [facility] Comment on above: Performed By: #### U MICRO, ERUR ####[facility] Kktdvgnwos4280 [place] [address]Dr. Bhavani Barragan Glucose Ql (U) Negative Normal NEGATIVE The [facility] Comment on above: Performed By: #### U MICRO, ERUR ####[facility] Y[address]yhrsyrf[address] [place], [place] [address]Dr. Bhavani Barragan Hemoglobin Ql (U) TRACE-INTACT Abnormal NEGATIVE [facility] Comment on above: Performed By: #### U MICRO, ERUR ####[facility] Haghqqfayk[address] [place], [place] [address]Dr. Bhavani Barragan Ketones Ql (U) Negative Normal NEGATIVE [facility] Comment on above: Performed By: #### U MICRO, ERUR ####[facility] Aarm[address]nii[address] [place], [place] [address]Dr. Bhavani Barragan LEUKOCYTES SMALL Abnormal NEGATIVE [facility] Comment on above: Performed By: #### U MICRO, ERUR ####[facility] Dvpaabquhp[address] [place], [place] [address]Dr. Bhavani Barragan Nitrite Ql (U) Positive Abnormal NEGATIVE [facility] Comment on above: Performed By: #### U MICRO, ERUR ####[facility] Wgnect[address]up[address] [place], [place] [address]Dr. Bhavani Barragan pH (U) 6.0 [pH] Normal 5-9 The [facility] Comment on above: Performed By: #### U MICRO, ERUR ####[facility] Fykdzjqnpm64[address] [place], [place] [address]Dr. Bhavani Barragan Protein (U) [Mass/Vol] 30 mg/dL Abnormal NEGATIVE/ TRACE The [facility] Comment on above: Performed By: #### U MICRO, ERUR ####[facility] Ktcpifj[address] [place], [place] [address]Dr. Bhavani Barragan SPEC GRAVITY 1.020 Normal 1.005-<=1.02 5 [facility] Comment on above: Performed By: #### U MICRO, ERUR ####[facility] Xarvbdsxro[address]64 [place] [address]Dr. Bhavani Barragan UR MICRO IND INDICATED Normal The [facility] Comment on above: Performed By: #### U MICRO, ERUR ####[facility] Roktulnzze6833 [place] [address]Dr. Bhavani Barragan Urobilinogen Qn (U) 0.2 {Ridge'U}/dL Normal 0.2 - 1. 0 The [facility] Comment on above: Performed By: #### U MICRO, ERUR ####[facility] Wmhdmfbnzl4538 [place] [address]Dr. Bhavani Barragan LACTATE/LACTIC ACIDon 2022 Lactate [Moles/Vol] 1.5 mmol/L Normal 0.4-2.[address] [facility] Comment on above: Performed By: #### L ACT ####[facility] Biqfxumeey8[address] [place] [address]Dr. Bhavani Barragan PROF CHEM 8 (BAS METB)on Anion gap [Moles/Vol] 14.7 mmol/L Normal [facility] Comment on above: Performed By: #### B MP ####[facility] Oohqwacrsf90[address] [place] [address]Dr. Bhavani Barragan Calcium [Mass/Vol] 8.2 mg/dL Critically low 8.5-10.[address] [facility] Comment on above: Performed By: #### B MP ####[facility] Ezngytkjyw7274 [place] [address]Dr. Bhavani Barragan Chloride [Moles/Vol] 103 mmol/L Normal 98-107 The [facility] Comment on above: Performed By: #### B MP ####[facility] Ocmnqsbrwu4515 [place] [address]Dr. Bhavani Barragan CO2 [Moles/Vol] 22.4 mmol/L Normal 21.0-32.0 The [facility] Comment on above: Performed By: #### B MP ####[facility] Rujfdxsltp0127 [place] [phone]. Bhavani Barragan Creatinine [Mass/Vol] 1.39 mg/dL Critically high 0.55-1.02 [facility] Comment on above: Performed By: #### B MP ####[facility] Kxsenbcfdz2980 [place] [phone]. Bhavani Barragan EGFR-AF MALDIVIAN 44 mL/min/1.73m2 Critically low >=60 [facility] Comment on above: Performed By: #### B MP ####[facility] Gxhgzsuqmr9869 [place] [phone]. Bhavani Laurel EGFR-NON AF MALDIVIAN 36 mL/min/1.73m2 Critically low >=60 [facility] Comment on above: Performed By: #### B MP ####[facility] Kkxoukvkko28[address] [place] [address]Dr. Jayceeroxi Laurel Glucose [Mass/Vol] 161 mg/dL Critically high 74-106 [facility] Comment on above: Performed By: #### B MP ####[facility] Iqnnxukhwu2721 [place] [phone]. Jayceeroxi Laurel Potassium [Moles/Vol] 4.1 mmol/L Normal 3.5-5.1 [facility] Comment on above: Performed By: #### B MP ####[facility] Hrtactotwc8016 [place] [address]Dr. Bhavani Barragan Sodium [Moles/Vol] 136 mmol/L Normal 136-145 [facility] Comment on above: Performed By: #### B MP ####[facility] Nfovglekko8147 [place] [phone]. Jayceeroxi Laurel Urea nitrogen [Mass/Vol] 23.0 mg/dL Critically high 7.0-18.0 [facility] Comment on above: Performed By: #### B MP ####[facility] Yszjagmoud9541 [place] [phone]. Bhavani Barragan Urea nitrogen/Creatinine [Mass ratio] 16.5 mg/mg Normal [facility] Comment on above: Performed By: #### B MP ####[facility] Pzunahsxee7[address] [place] [address]Dr. Bhavani Barragan PROTIMEon 02-06-2023 INR Coag (PPP) [Relative time] 1.12 {INR} Normal The [facility] Comment on above: Performed By: #### P TT, PT ####[facility] Qyuhiaafkw[address] [place] [address]Dr. Bhavani Barragan INR GUIDELINES SEE BELOW Normal The [facility] Comment on above: Result Comment: WALKER RED INR: 2.0 - 3.0 CONDITIONS NOT LISTED BELOW 2.5 - 3.5 FOR PROSTHETIC HEART VALVE REPLACEMENT 2.5 - 3.5 RECURRENT THROMBOSIS Performed By: #### P TT, PT ####[facility] Zxcfkcjrwv230[address] [place] [address]Dr. Bhavani Barragan PT Coag (PPP) [Time] 11.8 s Critically high 9.0-11.6 The [facility] Comment on above: Performed By: #### P TT, PT ####[facility] Jflckfmzrd27[address] [place] [address]Dr. Bhavani Barragan PTTon 02-06-2023 aPTT Coag (Bld) [Time] 23.8 s Normal 22.3-36.2 The [facility] Comment on above: Performed By: #### P TT, PT ####[facility] Vobmwnkmgz4[address] [place] [address]Dr. Bhavani Barragan URINE MICROSCOPIC ONLYon BACTERIA LARGE Abnormal NONE SEEN The [facility] Comment on above: Performed By: #### U MICRO, ERUR ####[facility] Ezxhyjycsw037[address] [place] [address]Dr. Bhavani Barragan Bacteria identified Cx Nom (U) INDICATED Normal The [facility] Comment on above: Performed By: #### U MICRO, ERUR ####[facility] Ocqsseizuy4944 [place] [address]Dr. Bhavani Barragan CAST NONE SEEN Normal NONE SEEN The [facility] Comment on above: Performed By: #### U MICRO, ERUR ####[facility] Twijxdhbbo2518 [place] [phone]. Bhavani Laurel Crystals LM Nom (Urine sed) NONE SEEN Normal NONE SEEN The [facility] Comment on above: Performed By: #### U MICRO, ERUR ####[facility] Hynjwtwfkd1728 [place] [phone]. Jayceeroxi Barragan Epithelial cells LM Ql (Urine sed) RARE Normal NONE SEEN /RARE The [facility] Comment on above: Performed By: #### U MICRO, ERUR ####[facility] Ynttsfcdbm6514 [place] [phone]. Bhavani Barragan MUCOUS NONE SEEN Normal NONE SEEN The [facility] Comment on above: Performed By: #### U MICRO, ERUR ####[facility] Hzxhbsfcmn8151 [place] [address]Dr. Bhavani Barragan RBC 0-2 Normal 0-2 The [facility] Comment on above: Performed By: #### U MICRO, ERUR ####[facility] Dvfuiozbsm0254 [place] [phone]. Bhavani Barragan WBC 10-20 Abnormal NONE SEEN The [facility] Comment on above: Performed By: #### U MICRO, ERUR ####[facility] Hwhbfksygj4780 [place] [address]Dr. Jayceeroxi Barragan XR CHEST 1 Von 02-06-2023 XR CHEST 1 V Normal [facility] XR FEMUR RTon 02-06-2023 XR FEMUR RT Normal [facility] Orders Onlyon 01-22-2023 Orders Only [id number] Jennifer Tafoya 1940 F Date Provider [facility] Family History Problem Relation Age of Onset Diabetes Sister Diabetes Brother Diabetes Maternal Grandfather Family Status - Relation Status Age at Sister Brother Maternal Grandfather Normal [facility] CBC AUTO DIFFon 01-18-2023 BASO # 0.1 103/ul Normal 0.0-0.1 The [facility] Comment on above: Performed By: #### C BC ####[facility] Kojvkfgqef15[address] [place] [address]Dr. Bhavani Barragan Basophils/100 WBC (Bld) 0.7 % Normal 0.2-2.0 The [facility] Comment on above: Performed By: #### C BC ####[facility] Uhlbqbdhjd8712 [place] [address]Dr. Bhavani Barragan EO # 0.0 103/ul Normal 0.0-0.7 The [facility] Comment on above: Performed By: #### C BC ####[facility] Rguoizfawd4087 [place] [address]Dr. Bhavani Barragan Eosinophils/100 WBC (Bld) 0.2 % Critically low 0.9-7.0 The [facility] Comment on above: Performed By: #### C BC ####[facility] Yoofnzjxql[address] [place], [place] [address]Dr. Bhavani Barragan Erythrocyte distribution width (RBC) [Ratio] 16.4 % Critically high 11.0-15.0 The [facility] Comment on above: Performed By: #### C BC ####[facility] Upfmxvplzl[address] [place], [place] [address]Dr. Bhavani Barragan Hematocrit (Bld) [Volume fraction] 41.5 % Normal 36.0-48.0 The [facility] Comment on above: Performed By: #### C BC ####[facility] Dvtqninnbj[address] [place], [place] [address]Dr. Bhavani Barragan Hemoglobin (Bld) [Mass/Vol] 13.0 g/dL Normal 12.0-16.0 The [facility] Comment on above: Performed By: #### C BC ####[facility] Qnkdedjqqz[address] [place], [place] [address]Dr. Bhavani Barragan IG # 0.24 10e3/ul Critically high 0.00-0.03 The [facility] Comment on above: Performed By: #### C BC ####[facility] [address]wzqj[address] [place], [place] [address]Dr. Bhavani Barragan IG % 1.3 % Critically high 0.0-0.5 The [facility] Comment on above: Performed By: #### C BC ####[facility] Hvfxsnxpss9803 [place] [phone]. Bhavani Laurel LYMPH # 1.5 103/ul Normal 1.2-3.8 The [facility] Comment on above: Performed By: #### C BC ####[facility] Vhanspcmcn6112 [place] [phone]. Bhavani Laurel Lymphocytes/100 WBC (Bld) 8.1 % Critically low 20.5-60.0 The [facility] Comment on above: Performed By: #### C BC ####[facility] Febjmksflc4805 [place] [phone]. Jayceeroxi Barragan MANUAL DIFF REQ NO Normal The [facility] Comment on above: Performed By: #### C BC ####[facility] Dhqqibvkhs8627 [place] [phone]. Bhavani Laurel MCH (RBC) [Entitic mass] 28.9 pg Normal 26.7-34.0 The [facility] Comment on above: Performed By: #### C BC ####[facility] Garfprggak[address] [place] [address]Dr. Bhavain Laurel MCHC (RBC) [Mass/Vol] 31.3 g/dL Normal 29.9-35.2 The [facility] Comment on above: Performed By: #### C BC ####[facility] Jsgpgngejs8463 [place] [phone]. Jayceeroxi Barragan MCV (RBC) [Entitic vol] 92.2 fL Normal 81.0-99.0 The [facility] Comment on above: Performed By: #### C BC ####[facility] Jqfgcfhfce1353 [place] [phone]. Bhavani Barragan MONO # 0.2 103/ul Critically low 0.3-0.8 The [facility] Comment on above: Performed By: #### C BC ####[facility] Ijwtcuqqrk1051 [place] [phone]. Bhavani Barragan Monocytes/100 WBC (Bld) 1.3 % Critically low 1.7-12.0 The [facility] Comment on above: Performed By: #### C BC ####[facility] Nbzizjjwkv0546 [place] [phone]. Bhavani Barragan NEUT # 16.0 103/ul Critically high 1.4-6.5 The [facility] Comment on above: Performed By: #### C BC ####[facility] Bwqqfoowoq9237 [place] [phone]. Bhavani Barragan Neutrophils/100 WBC (Bld) 88.4 % Critically high 43.0-75.0 The [facility] Comment on above: Performed By: #### C BC ####[facility] Pajywxhojg8275 [place] [phone]. Bhavani Barragan Platelet mean volume (Bld) [Entitic vol] 12.1 fL Normal 9.5-13.5 The [facility] Comment on above: Performed By: #### C BC ####[facility] Znjodssffz7018 [place] [phone]. Bhavani Barragan PLT 170 103/ul Normal 150-450 [facility] Comment on above: Performed By: #### C BC ####[facility] Exwenseewd0576 [place] [phone]. Bhavani Barragan RBC 4.50 106/ul Normal 4.20-5.40 The [facility] Comment on above: Performed By: #### C BC ####[facility] Jsmlxoczzd2078 [place] [phone]. Bhavani Barragan WBC 18.1 103/ul Critically high 4.0-11.0 The [facility] Comment on above: Performed By: #### C BC ####[facility] Guvpxdigax3787 [place] [address]Dr. Bhavani Barragan ECHOCARDIO M/2D COMPLETEon 0 01-18-2023 ECHOCARDIO M/2D COMPLETE Normal [facility] Office Visiton 12-25-2022 Follow-up visit [id number] Jennifer Tafoya 1940 F Date Provider Department Center 12/25/2022 TRACI LICEA [facility] Family History Problem Relation Age of Onset Diabetes Sister Diabetes Brother Diabetes Maternal Grandfather Family Status - Relation Status Age at Sister Brother Maternal Grandfather Level of Service:83400 CO OFFICE/OUTPATIENT ESTABLISHED MOD MDM 30-39 MIN Reason for Visit and Comments: Atrial Fibrillation [80] Normal [facility] Endoscopy Reporton Endoscopy Report MR#: [id number] [facility] Pt. Name: María Elena Tafoya Surgery [...] Barillas M.D. Date Trans: 06/27/2022 03:26 A/erik [id number] cc: Bennie Albright M.D. [address], [facility] [place] [address] [place] [facility] ABDOMEN 1 [facility] 06-26-2022 ABDOMEN 1 [facility] Department of Radiology [address] [place] [id number] ======== Patient Name: MARÍA ELENA TAFOYA [...] identified. Electronically signed: Roge Bah. Transcribed by: [email or web address], User Resident: Electronically Signed by: ROGE BAH @ 06/26/2022 11:52 AM Normal [facility] Comment on above: Order Comment: Check Stent Position, NO ERCPon 06-26-2022 ERCP [facility] Department of Radiology [address] [place] [phone] ======== Patient Name: MARÍA ELENA TAFOYA : 1940 Sex: F Age: Race: White Pt. Location: [facility] Patient Status: Ordered Date: 06/26/2022 [...] details. Electronically signed: FARSHAD SILVA. Transcribed by: [email or web address], User Resident: Electronically Signed by: FARSHAD SILVA @ 06/27/2022 09:15 AM Normal [facility] Comment on above: Order Comment: , [place] ointment Date: 06/26/2022 , Appointment Time: 1015 , Appointment Date: 06/26/2022 , Appointment Time: 1015 , , , Ordering Provider - ELIU BRAUN MD , POC GLUCOSE LABon 06-26-2022 Glucose [Mass/Vol] 121 mg/dL High 70-100 The [facility] Comment on above: Performed By: #### [id number] #### [facility] [address] [address], [facility] Glucose [Mass/Vol] 116 mg/dL High 70-100 [facility] Comment on above: Performed By: #### 8 [id number] #### [facility] [address] POC SARS COV2 IDon 2 SARS-CoV-2 (COVID-19) RNA MATTHEW+probe Ql (Unsp spec) Negative Normal NEGATIVE [facility] Comment on above: Result Comment: ID [...] Accreditation. Performed By: #### 8 [id number] #### [facility] [address] [facility]. [place] [address], [facility] XR MODIFIED BARIUM SWALLOWon 05-08-2022 XR MODIFIED BARIUM SWALLOW Normal [facility] POC GLUCOSE LABon 04-16-2022 Glucose [Mass/Vol] 103 mg/dL High 70-100 [facility] Comment on above: Performed By: #### 8 5499 ####[facility] [facility] [place] [address], [facility] POC GLUCOSE LABon 04-15-2022 Glucose [Mass/Vol] 112 mg/dL High 70-100 [facility] Comment on above: Performed By: #### 8 5499 #### [facility] [address] [facility] [place] [address], [facility] Glucose [Mass/Vol] 131 mg/dL High 70-100 [facility] Comment on above: Performed By: #### 8 5499 #### [facility] [address] [place] [address], [place] Glucose [Mass/Vol] 122 mg/dL High 70-100 The [facility] Comment on above: Performed By: #### 5 0608 #### [facility] [address] [place] [address], [place] Glucose [Mass/Vol] 118 mg/dL High 70-100 The [facility] Comment on above: Performed By: #### 8 5499 #### [facility] [address] [place] [address], [place] BASIC METABOLIC PANELon 05-2 Calcium [Mass/Vol] 8.1 mg/dL Low 8.6-10.3 The [facility] Comment on above: Order Comment: No: D o not add to previous draw Performed By: #### 2 2706 #### [facility] [address] [place] [address], [place] Chloride [Moles/Vol] 104 mmol/L Normal 98-107 The [facility] Comment on above: Order Comment: No: D o not add to previous draw Performed By: #### 2 2706 #### [facility] [address] [place] [address], [place] CO2 [Moles/Vol] 27 mmol/L Normal 21-[address] [facility] Comment on above: Order Comment: No: D o not add to previous draw Performed By: #### 2 2706 #### [facility] [address] [place] [address], [place] Creatinine [Mass/Vol] 1.34 mg/dL High 0.60-1.20 The [facility] Comment on above: Order Comment: No: D o not add to previous draw Performed By: #### 2 2706 #### [facility] [address] [place] [address], [place] eGFR- 46 ml/min/1.73sq m Abnormal >60 The [facility] Comment on above: Order Comment: No: D o not add to previous draw Result Comment: Calc ulation may not be valid for patients over 70 years Performed By: #### 2 2706 #### [facility] [address] [place] [address], [facility] eGFR- non- 38 ml/min/1.73sq m Abnormal >60 The [facility] Comment on above: Order Comment: No: D o not add to previous draw Result Comment: Calc ulation may not be valid for patients over 70 years Performed By: #### 2 2706 #### [facility] [address] [place] [address], [place] Glucose [Mass/Vol] 106 mg/dL High 70-100 The [facility] Comment on above: Order Comment: No: D o not add to previous draw Performed By: #### 2 2706 #### [facility] [address] [place] [address], [place] Potassium [Moles/Vol] 4.9 mmol/L Normal 3.5-5.1 The [facility] Comment on above: Order Comment: No: D o not add to previous draw Performed By: #### 2 2706 #### [facility] [address] [place] [address], [place] Sodium [Moles/Vol] 135 mmol/L Low 136-145 The [facility] Comment on above: Order Comment: No: D o not add to previous draw Performed By: #### 2 2706 #### [facility] [address] [place] [address], [place] Urea nitrogen [Mass/Vol] 22 mg/dL Normal 7-25 The [facility] Comment on above: Order Comment: No: D o not add to previous draw Performed By: #### 2 2706 #### [facility] [address] [place] [address], [place] CBC COMPLETE BLOOD COUNTon 0 04-14-2022 Erythrocyte distribution width (RBC) [Ratio] 20.9 % High 11.5-15.0 [facility] Comment on above: Order Comment: No: D o not add to previous draw Performed By: #### 8 5499 #### [facility] [address] [place] [address], [facility] Hematocrit (Bld) [Volume fraction] 27.5 % Low 36.0-45.0 The [facility] Comment on above: Order Comment: No: D o not add to previous draw Performed By: #### 8 5499 #### [facility] [address] [place] [id number], [facility] Hemoglobin (Bld) [Mass/Vol] 8.5 g/dL Low 12.0-15.0 The [facility] Comment on above: Order Comment: No: D o not add to previous draw Performed By: #### 8 5499 #### [facility] [address] [place] [id number], [facility] IMM PLATELET FRAC 10.2 % High 0.8-6.3 The [facility] Comment on above: Order Comment: No: D o not add to previous draw Performed By: #### 8 5499 #### [facility] [address] [place] [id number], [facility] MCH (RBC) [Entitic mass] 31.1 pg Normal 27.0-33.0 The [facility] Comment on above: Order Comment: No: D o not add to previous draw Performed By: #### 8 5499 #### [facility] [address] [place] [address], [place] MCHC (RBC) [Mass/Vol] 30.9 g/dL Low 32.0-35.0 The [facility] Comment on above: Order Comment: No: D o not add to previous draw Performed By: #### 8 5499 #### [facility] [address] [place] [id number], [facility] MCV (RBC) [Entitic vol] 100.7 fL High 82.0-98.0 The [facility] Comment on above: Order Comment: No: D o not add to previous draw Performed By: #### 8 5499 #### [facility] [address] [place] [id number], [place] Nucleated RBC/100 WBC (Bld) [Ratio] 0 % Normal 0-0 The [facility] Comment on above: Order Comment: No: D o not add to previous draw Performed By: #### 8 5499 #### [facility] [address] [place] [address], [place] PLAT ESTIMATE Normal Normal The [facility] Comment on above: Order Comment: No: D o not add to previous draw Result Comment: EDTA smear shows platelet clumping, see platelet estimate Performed By: #### 8 5499 #### [facility] [address] [place] [address], [facility] RBC (Bld) [#/Vol] 2.73 10*6/uL Low 3.80-5.00 The [place] Comment on above: Order Comment: No: D o not add to previous draw Performed By: #### 8 5499 #### [facility] [address] [place] [address], [place] WBC (Bld) [#/Vol] 19.62 10*3/uL High 4.00-10.60 The [facility] Comment on above: Order Comment: No: D o not add to previous draw Performed By: #### 8 5499 #### [facility] [address] [place] [address], [place] MAGNESIUM BLOODon 04-14-2022 Magnesium [Mass/Vol] 1.9 mg/dL Normal 1.9-2.7 The [facility] Comment on above: Order Comment: No: D o not add to previous draw Performed By: #### 2 2706 #### [facility] [address] [place] [address], [place] POC GLUCOSE LABon 04-14-2022 Glucose [Mass/Vol] 117 mg/dL High 70-100 The [facility] Comment on above: Performed By: #### 3 0313 #### [facility] [address] [place] [address], [place] Glucose [Mass/Vol] 119 mg/dL High 70-100 The [facility] Comment on above: Performed By: #### 8 5499 #### [facility] [address] [place] [address], [place] Glucose [Mass/Vol] 113 mg/dL High 70-100 The [facility] Comment on above: Performed By: #### 8 5499 #### [facility] [address] [place] [address], [place] Glucose [Mass/Vol] 112 mg/dL High 70-100 The [facility] Comment on above: Performed By: #### 8 5499 #### [facility] [address] [place] [address], [place] BASIC METABOLIC PANELon 03-19 Calcium [Mass/Vol] 8.4 mg/dL Low 8.6-10.3 The [facility] Comment on above: Order Comment: Bleed , altereed mental status Performed By: #### 4 1000, 24308, 67747 ####[facility] [place] [address], [place] Chloride [Moles/Vol] 105 mmol/L Normal 98-107 The [facility] Comment on above: Order Comment: Bleed , altereed mental status Performed By: #### 4 1000, 73007, 96675 ####[facility] [place] [address], [place] CO2 [Moles/Vol] 24 mmol/L Normal 21-[address] [facility] Comment on above: Order Comment: Bleed , altereed mental status Performed By: #### 4 1000, , 94687 ####[facility] [place] [address], [place] Creatinine [Mass/Vol] 1.31 mg/dL High 0.60-1.20 The [facility] Comment on above: Order Comment: Bleed , altereed mental status Performed By: #### 4 1000, , 64417 ####[facility] [place] [address], [facility] eGFR- 47 ml/min/1.73sq m Abnormal >60 The [facility] Comment on above: Order Comment: Bleed , altereed mental status Result Comment: Calc ulation may not be valid for patients over 70 years Performed By: #### 4 1000, , 48495 ####[facility] [place] [address], [facility] eGFR- non- 39 ml/min/1.73sq m Abnormal >60 The [facility] Comment on above: Order Comment: Bleed , altereed mental status Result Comment: Calc ulation may not be valid for patients over 70 years Performed By: #### 4 1000, , 44103 ####[facility] [place] [address], [place] Glucose [Mass/Vol] 85 mg/dL Normal 70-100 [facility] Comment on above: Order Comment: Bleed , altereed mental status Performed By: #### 4 1000, , 00138 ####[facility] [place] [address], [place] Potassium [Moles/Vol] 5.2 mmol/L High 3.5-5.1 The [facility] Comment on above: Order Comment: Bleed , altereed mental status Performed By: #### 4 1000, , 73650 ####[facility] [place] [address], [place] Sodium [Moles/Vol] 137 mmol/L Normal 136-145 The [facility] Comment on above: Order Comment: Bleed , altereed mental status Performed By: #### 4 1000, 42396, 75842 ####[facility] [place] [address], [facility] Urea nitrogen [Mass/Vol] 21 mg/dL Normal 7-25 The [facility] Comment on above: Order Comment: Bleed , altereed mental status Performed By: #### 4 1000, 27989, 42451 ####[facility] [place] [address], [facility] CBC COMPLETE BLOOD COUNT04-13-2022 Erythrocyte distribution width (RBC) [Ratio] 20.4 % High 11.5-15.0 The [facility] Comment on above: Order Comment: No: D o not add to previous draw Performed By: #### 8 7249 #### [facility] [address] [place] [address], [facility] Hematocrit (Bld) [Volume fraction] 29.2 % Low 36.0-45.0 The [facility] Comment on above: Order Comment: No: D o not add to previous draw Performed By: #### 8 6969 #### [facility] [address] [place] [address], [facility] Hemoglobin (Bld) [Mass/Vol] 9.0 g/dL Low 12.0-15.0 The [facility] Comment on above: Order Comment: No: D o not add to previous draw Performed By: #### 8 8689 #### [facility] [address] [place] [address], [place] MCH (RBC) [Entitic mass] 31.0 pg Normal 27.0-33.0 The [facility] Comment on above: Order Comment: No: D o not add to previous draw Performed By: #### 8 1079 #### [facility] [address] [place], [address] MCHC (RBC) [Mass/Vol] 30.8 g/dL Low 32.0-35.0 [facility] Comment on above: Order Comment: No: D o not add to previous draw Performed By: #### 8 5499 #### [facility] [address] [place] [id number], [facility] MCV (RBC) [Entitic vol] 100.7 fL High 82.0-98.0 [facility] Comment on above: Order Comment: No: D o not add to previous draw Performed By: #### 8 5499 #### [facility] [address] [place] [address], [facility] Nucleated RBC/100 WBC (Bld) [Ratio] 0 % Normal 0-0 [facility] Comment on above: Order Comment: No: D o not add to previous draw Performed By: #### 8 5499 #### [facility] [address] [place] [address], [facility] PLAT CNT 148 10*3/uL Low 150-400 The [facility] Comment on above: Order Comment: No: D o not add to previous draw Performed By: #### 8 5499 #### [facility] [address] [place] [address], [facility] RBC (Bld) [#/Vol] 2.90 10*6/uL Low 3.80-5.00 The [place] Comment on above: Order Comment: No: D o not add to previous draw Performed By: #### 8 5499 #### [facility] [address] [place] [id number], [facility] WBC (Bld) [#/Vol] 22.15 10*3/uL High 4.00-10.60 The [facility] Comment on above: Order Comment: No: D o not add to previous draw Performed By: #### 8 5499 #### [facility] [address] [place] [id number], [place] MAGNESIUM BLOODon 04-13-2022 Magnesium [Mass/Vol] 1.7 mg/dL Low 1.9-2.7 The [facility] Comment on above: Order Comment: Bleed , altereed mental status Performed By: #### 4 1000, 76033, 82244 ####[facility] [place] [address], [place] PHOSPHORUS BLOODon Phosphate [Mass/Vol] 4.7 mg/dL Normal 2.5-5.0 The [facility] Comment on above: Order Comment: Bleed , altereed mental status Performed By: #### 4 1000, 19283, 77006 ####[facility] [place] [address], [place] POC GLUCOSE LABon 04-13-2022 Glucose [Mass/Vol] 119 mg/dL High 70-100 [facility] Comment on above: Performed By: #### 8 5499 #### [facility] [address] [place] [address], [place] Glucose [Mass/Vol] 116 mg/dL High 70-100 [facility] Comment on above: Performed By: #### 8 5499 #### [facility] [address] [place] [address], [place] Glucose [Mass/Vol] 129 mg/dL High 70-100 [facility] Comment on above: Performed By: #### 8 5499 #### [facility] [address] [place] [address], [place] Glucose [Mass/Vol] 109 mg/dL High 70-100 The [facility] Comment on above: Performed By: #### 8 5499 ####[facility] [place] [address], [place] POTASSIUM BLOODon 04-13-2022 Potassium [Moles/Vol] 4.7 mmol/L Normal 3.5-5.1 The [facility] Comment on above: Order Comment: No: D o not add to previous draw Performed By: #### 2 2706 #### [facility] [address] [place] [address], [facility] BASIC METABOLIC PANELon 05-2 Calcium [Mass/Vol] 8.5 mg/dL Low 8.6-10.3 [facility] Comment on above: Order Comment: Bleed , altereed mental status Performed By: #### 1 0070, 04320, 62180 ####[facility] [place] [address], [facility] Chloride [Moles/Vol] 106 mmol/L Normal 98-107 The [facility] Comment on above: Order Comment: Bleed , altereed mental status Performed By: #### 1 0, , 69748 ####[facility] [place] [address], [facility] CO2 [Moles/Vol] 24 mmol/L Normal 21-31 [facility] Comment on above: Order Comment: Bleed , altereed mental status Performed By: #### 1 0, 24450, 48932 ####[facility] [place] [address], [facility] Creatinine [Mass/Vol] 1.34 mg/dL High 0.60-1.20 [facility] Comment on above: Order Comment: Bleed , altereed mental status Performed By: #### 1 0, 96996, 93481 ####[facility] [place] [address], [facility] eGFR- 46 ml/min/1.73sq m Abnormal >60 The [facility] Comment on above: Order Comment: Bleed , altereed mental status Result Comment: Calc ulation may not be valid for patients over 70 years Performed By: #### 1 0, 75715, 95837 ####[facility] eGFR- non- 38 ml/min/1.73sq m Abnormal >60 The [facility] Comment on above: Order Comment: Bleed , altereed mental status Result Comment: Calc ulation may not be valid for patients over 70 years Performed By: #### 1 0070, 44268, 71800 ####[facility] [place] [address], [facility] Glucose [Mass/Vol] 83 mg/dL Normal 70-100 [facility] Comment on above: Order Comment: Bleed , altereed mental status Performed By: #### 1 0070, 33039, 35651 ####[facility] [place] [address], [facility] Potassium [Moles/Vol] 4.5 mmol/L Normal 3.5-5.1 [facility] Comment on above: Order Comment: Bleed , altereed mental status Performed By: #### 1 0070, 62326, 53500 ####[facility] [place] [address], [facility] Sodium [Moles/Vol] 137 mmol/L Normal 136-145 [facility] Comment on above: Order Comment: Bleed , altereed mental status Performed By: #### 1 0070, 04779, 10348 ####[facility] [place] [address], [facility] Urea nitrogen [Mass/Vol] 25 mg/dL Normal 7-25 [facility] Comment on above: Order Comment: Bleed , altereed mental status Performed By: #### 1 0070, 47947, 08782 ####[facility] CBC COMPLETE BLOOD COUNTon 04-12-2022 Erythrocyte distribution width (RBC) [Ratio] 19.9 % High 11.5-15.0 [facility] Comment on above: Order Comment: No: D o not add to previous draw Performed By: #### 8 5499 #### [facility] [address] [place] [id number], [facility] Hematocrit (Bld) [Volume fraction] 28.9 % Low 36.0-45.0 [facility] Comment on above: Order Comment: No: D o not add to previous draw Performed By: #### 8 5499 #### [facility] [address] [place] [address], [facility] Hemoglobin (Bld) [Mass/Vol] 8.7 g/dL Low 12.0-15.0 [facility] Comment on above: Order Comment: No: D o not add to previous draw Performed By: #### 8 5499 #### [facility] [address] [place] [id number], [facility] MCH (RBC) [Entitic mass] 30.1 pg Normal 27.0-33.0 [facility] Comment on above: Order Comment: No: D o not add to previous draw Performed By: #### 8 5499 #### [facility] [address] [place] [address], [facility] MCHC (RBC) [Mass/Vol] 30.1 g/dL Low 32.0-35.0 [facility] Comment on above: Order Comment: No: D o not add to previous draw Performed By: #### 8 5499 #### [facility] [address] [place] [id number], [facility] MCV (RBC) [Entitic vol] 100.0 fL High 82.0-98.0 [facility] Comment on above: Order Comment: No: D o not add to previous draw Performed By: #### 8 5499 #### [facility] [address] [place] [id number], [facility] Nucleated RBC/100 WBC (Bld) [Ratio] 0 % Normal 0-0 [facility] Comment on above: Order Comment: No: D o not add to previous draw Performed By: #### 8 5499 #### [facility] [address] [place] [address], [facility] PLAT CNT 186 10*3/uL Normal 150-400 The [facility] Comment on above: Order Comment: No: D o not add to previous draw Performed By: #### 8 5499 #### [facility] [address] [place] [address], [facility] RBC (Bld) [#/Vol] 2.89 10*6/uL Low 3.80-5.00 [facility] Comment on above: Order Comment: No: D o not add to previous draw Performed By: #### 8 5499 #### [facility] [address] [place] [id number], [facility] WBC (Bld) [#/Vol] 21.99 10*3/uL High 4.00-10.60 [facility] Comment on above: Order Comment: No: D o not add to previous draw Performed By: #### 8 5499 #### [facility] [address] [place] [id number], [facility] LIVER BATTERYon 04-12-2022 Albumin [Mass/Vol] 3.0 g/dL Low 3.5-5.7 [facility] Comment on above: Order Comment: Bleed , altereed mental status Performed By: #### 1 0070, 07649, 85384 ####[facility] [facility].[address] ALKALINE PHOSPH 87 IU/L Normal 34-[address] [facility] Comment on above: Order Comment: Bleed , altereed mental status Performed By: #### 1 0, 53319, 06626 ####[facility] ALT [Catalytic activity/Vol] 7 U/L Normal 7-52 [facility] Comment on above: Order Comment: Bleed , altereed mental status Performed By: #### 1 0, 45673, 02339 ####[facility] AST [Catalytic activity/Vol] 11 U/L Low 13-39 [facility] Comment on above: Order Comment: Bleed , altereed mental status Performed By: #### 1 0, 00273, 03596 ####[facility] [place] [address], [facility] Bilirubin [Mass/Vol] 0.8 mg/dL Normal 0.3-1.0 [facility] Comment on above: Order Comment: Bleed , altereed mental status Performed By: #### 1 0, , 15186 ####[facility] Bilirubin.direct [Mass/Vol] 0.2 mg/dL Normal 0.0-0.2 [facility] Comment on above: Order Comment: Bleed , altereed mental status Performed By: #### 1 0, , 05666 ####[facility] [place] [address], [facility] Protein [Mass/Vol] 6.0 g/dL Normal 6.0-8.3 [facility] Comment on above: Order Comment: Bleed , altereed mental status Performed By: #### 1 0, , 07565 ####[facility] [place] [address], [facility] MAGNESIUM BLOODon 04-12-2022 Magnesium [Mass/Vol] 1.9 mg/dL Normal 1.9-2.7 [facility] Comment on above: Order Comment: Bleed , altereed mental status Performed By: #### 1 0, 85123, 31234 ####[facility] [place] [address], [facility] Operative Reporton 2 Operative Report MR#: [id number] # [facility] Pt. Name: María Elena Tafoya Room #: CCCI Discharge Date: Birthdate: 1940 OPERATIVE REPORT DATE OF SURGERY: 04/12/2022 SURGEON: Sharla Lizama MD Operative report: Laparoscopic cholecystectomy Location: [facility] main or Preoperative diagnosis: Gallstone pancreatitis Postoperative diagnosis: Gallstone pancreatitis Operation performed: Laparoscopic cholecystectomy Surgeon: Sharla Lizama MD Junior Project Coordinator: Dillon Thomas MD (resident [email or web address]) Estimated blood [...] Lizama MD Date Trans: 04/12/2022 05:18 P/ LORRIE_JN:[id number] cc: Bennie Albright M.D. [address] [facility] [id number] Normal The [facility] Operative Report MR#: [id number] I [facility] Pt. Name: María Elena Tafoya Room #: [id number] Discharge Date: Birthdate: 1940 OPERATIVE REPORT DATE OF SURGERY: 04/12/2022 SURGEON: Sharla Lizama MD Operative report: Laparoscopic cholecystectomy Location: [facility] main or Preoperative diagnosis: Gallstone pancreatitis Postoperative diagnosis: Gallstone pancreatitis Operation performed: Laparoscopic cholecystectomy Surgeon: Sharla Lizama MD Junior Project Coordinator: Dillon Thomas MD (resident pgy5) Estimated blood [...] Lizama MD Date Trans: 04/12/2022 05:18 P/ [id number] cc: Bennie Albright M.D. [address] [facility] [id number] Normal [facility] POC GLUCOSE LABon 04-12-2022 Glucose [Mass/Vol] 122 mg/dL High 70-100 [facility] Comment on above: Performed By: #### 8 [id number] #### [facility] [address] [place] [address], [facility] Glucose [Mass/Vol] 167 mg/dL High 70-100 [facility] Comment on above: Performed By: #### 8 [id number] ####[facility] [place] [address], [facility] Glucose [Mass/Vol] 105 mg/dL High 70-100 [facility] Comment on above: Performed By: #### 3 0313 #### [facility] [address] [facility] [place] [address], [facility] Glucose [Mass/Vol] 111 mg/dL High 70-100 [facility] Comment on above: Performed By: #### 8 [id number] ####[facility] [place] [address], [facility] Glucose [Mass/Vol] 109 mg/dL High 70-100 [facility] Comment on above: Performed By: #### 3 0313 #### [facility] [address] POC SARS COV2 IDon 2 SARS-CoV-2 (COVID-19) RNA MATTHEW+probe Ql (Unsp spec) Negative Normal NEGATIVE [facility] Comment on above: Result Comment: ID [...] Accreditation. Performed By: #### 8 [id number] #### [facility] [address] [place] [address], [facility] BASIC METABOLIC PANELon 05-2 Calcium [Mass/Vol] 8.3 mg/dL Low 8.6-10.3 [facility] Comment on above: Order Comment: No: D o not add to previous draw Performed By: #### 8 [id number] #### [facility] [address] [place] [address], [place] Chloride [Moles/Vol] 106 mmol/L Normal 98-107 [facility] Comment on above: Order Comment: No: D o not add to previous draw Performed By: #### 8 [id number] #### [facility] [address] [place] [address], [facility] CO2 [Moles/Vol] 23 mmol/L Normal 21-31 [facility] Comment on above: Order Comment: No: D o not add to previous draw Performed By: #### 8 [id number] #### [facility] [address] [place] [address], [facility] Creatinine [Mass/Vol] 1.21 mg/dL High 0.60-1.20 [facility] Comment on above: Order Comment: No: D o not add to previous draw Performed By: #### 8 [id number] #### [facility] [address] [place] [id number], [facility] eGFR- 51 ml/min/1.73sq m Abnormal >60 The [facility] Comment on above: Order Comment: No: D o not add to previous draw Result Comment: Calc ulation may not be valid for patients over 70 years Performed By: #### 8 [id number] #### [facility] [address] [place] [address], [facility] eGFR- non- 42 ml/min/1.73sq m Abnormal >60 [facility] Comment on above: Order Comment: No: D o not add to previous draw Result Comment: Calc ulation may not be valid for patients over 70 years Performed By: #### 8 [id number] #### [facility] [address] [place] [address], [place] Glucose [Mass/Vol] 91 mg/dL Normal 70-100 [facility] Comment on above: Order Comment: No: D o not add to previous draw Performed By: #### 8 [id number] #### [facility] [address] [place] [address], [place] Potassium [Moles/Vol] 4.5 mmol/L Normal 3.5-5.1 [facility] Comment on above: Order Comment: No: D o not add to previous draw Performed By: #### 8 [id number] #### [facility] [address] [place] [address], [place] Sodium [Moles/Vol] 138 mmol/L Normal 136-145 [facility] Comment on above: Order Comment: No: D o not add to previous draw Performed By: #### 8 [id number] #### [facility] [address] [place] [address], [facility] Urea nitrogen [Mass/Vol] 22 mg/dL Normal 7-25 [facility] Comment on above: Order Comment: No: D o not add to previous draw Performed By: #### 8 [id number] #### [facility] [address] [place] [address], [facility] CBC COMPLETE BLOOD COUNTon 0 - Erythrocyte distribution width (RBC) [Ratio] 19.6 % High 11.5-15.0 [facility] Comment on above: Order Comment: No: D o not add to previous draw Performed By: #### 5 [id number] #### [facility] [address] [place] [address], [place] Hematocrit (Bld) [Volume fraction] 29.5 % Low 36.0-45.0 [facility] Comment on above: Order Comment: No: D o not add to previous draw Performed By: #### 5 [id number] #### [facility] [address] [place] [address], [facility] Hemoglobin (Bld) [Mass/Vol] 9.2 g/dL Low 12.0-15.0 [facility] Comment on above: Order Comment: No: D o not add to previous draw Performed By: #### 5 [id number] #### [facility] [address] [place] [address], [facility] MCH (RBC) [Entitic mass] 31.0 pg Normal 27.0-33.0 [facility] Comment on above: Order Comment: No: D o not add to previous draw Performed By: #### 5 [id number] #### [facility] [address] [facility] [place] [address], [facility] MCHC (RBC) [Mass/Vol] 31.2 g/dL Low 32.0-35.0 [facility] Comment on above: Order Comment: No: D o not add to previous draw Performed By: #### 5 [id number] #### [facility] [address] [place] [address], [facility] MCV (RBC) [Entitic vol] 99.3 fL High 82.0-98.0 [facility] Comment on above: Order Comment: No: D o not add to previous draw Performed By: #### 5 [id number] #### [facility] [address] [place] [address], [facility] Nucleated RBC/100 WBC (Bld) [Ratio] 0 % Normal 0-0 [facility] Comment on above: Order Comment: No: D o not add to previous draw Performed By: #### 5 [id number] #### [facility] [address] [facility] [place] [address], [facility] PLAT CNT 277 10*3/uL Normal 150-400 [facility] Comment on above: Order Comment: No: D o not add to previous draw Performed By: #### 5 0608 #### [facility] [address] [place] [address], [facility] RBC (Bld) [#/Vol] 2.97 10*6/uL Low 3.80-5.00 [facility] Comment on above: Order Comment: No: D o not add to previous draw Performed By: #### 5 [id number] #### [facility] [address] [place] [address], [facility] WBC (Bld) [#/Vol] 20.81 10*3/uL High 4.00-10.60 [facility] Comment on above: Order Comment: No: D o not add to previous draw Performed By: #### 5 [id number] #### [facility] [address] [place] [address], [facility] LIVER BATTERYon 04-11-2022 Albumin [Mass/Vol] 3.1 g/dL Low 3.5-5.7 [facility] Comment on above: Order Comment: No: D o not add to previous draw Performed By: #### 8 [id number] #### [facility] [address] [place] [address], [facility] ALKALINE PHOSPH 92 IU/L Normal 34-[address] [facility] Comment on above: Order Comment: No: D o not add to previous draw Performed By: #### 8 [id number] #### [facility] [address] [place] [address], [facility] ALT [Catalytic activity/Vol] 7 U/L Normal 7-52 [facility] Comment on above: Order Comment: No: D o not add to previous draw Performed By: #### 8 [id number] #### [facility] [address] [place] [address], [facility] AST [Catalytic activity/Vol] 9 U/L Low 13-39 [facility] Comment on above: Order Comment: No: D o not add to previous draw Performed By: #### 8 [id number] #### [facility] [address] [place] [address], [place] Bilirubin [Mass/Vol] 0.8 mg/dL Normal 0.3-1.0 [facility] Comment on above: Order Comment: No: D o not add to previous draw Performed By: #### 8 [id number] #### [facility] [address] [place] [address], [place] Bilirubin.direct [Mass/Vol] 0.3 mg/dL High 0.0-0.2 [facility] Comment on above: Order Comment: No: D o not add to previous draw Performed By: #### 8 [id number] #### [facility] [address] [place] [address], [place] Protein [Mass/Vol] 5.7 g/dL Low 6.0-8.3 [facility] Comment on above: Order Comment: No: D o not add to previous draw Performed By: #### 8 [id number] #### [facility] [address] [place] [address], [place] MAGNESIUM BLOODon 04-11-2022 Magnesium [Mass/Vol] 1.7 mg/dL Low 1.9-2.7 [facility] Comment on above: Order Comment: No: D o not add to previous draw Performed By: #### 8 [id number] #### [facility] [address] [place] [address], [place] POC GLUCOSE LABon 04-11-2022 Glucose [Mass/Vol] 143 mg/dL High 70-100 [facility] Comment on above: Performed By: #### 8 [id number] #### [facility] [address] [place] [address], [place] Glucose [Mass/Vol] 142 mg/dL High 70-100 [facility] Comment on above: Performed By: #### 8 [id number] ####[facility] [place] [address], [place] Glucose [Mass/Vol] 125 mg/dL High 70-100 [facility] Comment on above: Performed By: #### 8 [id number] #### [facility] [address] [place] [address], [place] Glucose [Mass/Vol] 113 mg/dL High 70-100 [facility] Comment on above: Performed By: #### 3 0313 #### [facility] [address] [place] [address], [place] URINE SMITH STAIN/EOSon EOSINOPHIL SMEAR NONE SEEN Normal NSN The [facility] Comment on above: Order Comment: No: D o not add to previous draw [place] Normal [facility] Comment on above: Order Comment: No: D o not add to previous draw Result Comment: Test Performed by [employer] [address] [place] [address] - [employer] 04/11/2022 22:02 BASIC METABOLIC PANELon 05-2 Calcium [Mass/Vol] 8.3 mg/dL Low 8.6-10.3 [facility] Comment on above: Order Comment: No: D o not add to previous draw Performed By: #### 8 [id number] #### [facility] [address] [place] [address], [place] Chloride [Moles/Vol] 107 mmol/L Normal 98-107 [facility] Comment on above: Order Comment: No: D o not add to previous draw Performed By: #### 8 [id number] #### [facility] [address] [place] [address], [place] CO2 [Moles/Vol] 23 mmol/L Normal 21-[address] [facility] Comment on above: Order Comment: No: D o not add to previous draw Performed By: #### 8 [id number] #### [facility] [address] [place] [address], [place] Creatinine [Mass/Vol] 1.40 mg/dL High 0.60-1.20 [facility] Comment on above: Order Comment: No: D o not add to previous draw Performed By: #### 8 [id number] #### [facility] [address] [place] [address], [facility] eGFR- 44 ml/min/1.73sq m Abnormal >60 [facility] Comment on above: Order Comment: No: D o not add to previous draw Result Comment: Calc ulation may not be valid for patients over 70 years Performed By: #### 8 [id number] #### [facility] [address] [place] [address], [facility] eGFR- non- 36 ml/min/1.73sq m Abnormal >60 [facility] Comment on above: Order Comment: No: D o not add to previous draw Result Comment: Calc ulation may not be valid for patients over 70 years Performed By: #### 8 [id number] #### [facility] [address] [place] [address], [place] Glucose [Mass/Vol] 101 mg/dL High 70-100 [facility] Comment on above: Order Comment: No: D o not add to previous draw Performed By: #### 8 [id number] #### [facility] [address] [place] [address], [place] Potassium [Moles/Vol] 4.1 mmol/L Normal 3.5-5.1 [facility] Comment on above: Order Comment: No: D o not add to previous draw Performed By: #### 8 [id number] #### [facility] [address] [place] [address], [place] Sodium [Moles/Vol] 138 mmol/L Normal 136-145 [facility] Comment on above: Order Comment: No: D o not add to previous draw Performed By: #### 8 [id number] #### [facility] [address] Urea nitrogen [Mass/Vol] 25 mg/dL Normal 7-25 [facility] Comment on above: Order Comment: No: D o not add to previous draw Performed By: #### 8 [id number] #### [facility] [address] [place] [address], [facility] CBC COMPLETE BLOOD COUNTon 0 - Erythrocyte distribution width (RBC) [Ratio] 19.9 % High 11.5-15.0 [facility] Comment on above: Order Comment: No: D o not add to previous draw Performed By: #### 5 [id number] #### [facility] [address] [place] [address], [facility] Hematocrit (Bld) [Volume fraction] 29.1 % Low 36.0-45.0 [facility] Comment on above: Order Comment: No: D o not add to previous draw Performed By: #### 5 [id number] #### [facility] [address] [place] [address], [facility] Hemoglobin (Bld) [Mass/Vol] 9.1 g/dL Low 12.0-15.0 [facility] Comment on above: Order Comment: No: D o not add to previous draw Performed By: #### 5 0608 #### [facility] [address] [place] [address], [facility] MCH (RBC) [Entitic mass] 30.6 pg Normal 27.0-33.0 [facility] Comment on above: Order Comment: No: D o not add to previous draw Performed By: #### 5 [id number] #### [facility] [address] [place] [id number], [facility] MCHC (RBC) [Mass/Vol] 31.3 g/dL Low 32.0-35.0 [facility] Comment on above: Order Comment: No: D o not add to previous draw Performed By: #### 5 0608 #### [facility] [address] MCV (RBC) [Entitic vol] 98.0 fL Normal 82.0-98.0 [facility] Comment on above: Order Comment: No: D o not add to previous draw Performed By: #### 5 [id number] #### [facility] [address] [address], [facility] Nucleated RBC/100 WBC (Bld) [Ratio] 0 % Normal 0-0 [facility] Comment on above: Order Comment: No: D o not add to previous draw Performed By: #### 5 [id number] #### [facility] [address] [facility] [place] [address], [facility] PLAT CNT 281 10*3/uL Normal 150-400 [facility] Comment on above: Order Comment: No: D o not add to previous draw Performed By: #### 5 0608 #### [facility] [address] [facility] [place] [address], [facility] RBC (Bld) [#/Vol] 2.97 10*6/uL Low 3.80-5.00 The [place] Comment on above: Order Comment: No: D o not add to previous draw Performed By: #### 5 [id number] #### [facility] [address] [facility] [place] [address], [facility] WBC (Bld) [#/Vol] 19.64 10*3/uL High 4.00-10.60 [facility] Comment on above: Order Comment: No: D o not add to previous draw Performed By: #### 5 [id number] #### [facility] [address] [facility] [place] [address], [facility] MAGNESIUM BLOODon 04-10-2022 Magnesium [Mass/Vol] 1.6 mg/dL Low 1.9-2.7 [facility] Comment on above: Order Comment: No: D o not add to previous draw Performed By: #### 8 [id number] #### [facility] [address] [facility] [place] [address], [place] POC GLUCOSE LABon 04-10-2022 Glucose [Mass/Vol] 154 mg/dL High 70-100 [facility] Comment on above: Performed By: #### 8 [id number] #### [facility] [address] [place] [address], [place] Glucose [Mass/Vol] 120 mg/dL High 70-100 [facility] Comment on above: Performed By: #### 3 0313 #### [facility] [address] [place] [address], [place] Glucose [Mass/Vol] 131 mg/dL High 70-100 [facility] Comment on above: Performed By: #### 8 [id number] ####[facility] [place] [address], [place] Glucose [Mass/Vol] 114 mg/dL High 70-100 [facility] Comment on above: Performed By: #### 8 [id number] #### [facility] [address] [place] [address], [place] BASIC METABOLIC PANELon 03-19 Calcium [Mass/Vol] 8.7 mg/dL Normal 8.6-10.3 [facility] Comment on above: Order Comment: No: D o not add to previous draw Performed By: #### 8 [id number] #### [facility] [address] [place] [address], [place] Chloride [Moles/Vol] 104 mmol/L Normal 98-107 [facility] Comment on above: Order Comment: No: D o not add to previous draw Performed By: #### 8 [id number] #### [facility] [address] [place] [address], [place] CO2 [Moles/Vol] 24 mmol/L Normal 21-[address] [facility] Comment on above: Order Comment: No: D o not add to previous draw Performed By: #### 8 [id number] #### [facility] [address] [place] [address], [place] Creatinine [Mass/Vol] 1.29 mg/dL High 0.60-1.20 [facility] Comment on above: Order Comment: No: D o not add to previous draw Performed By: #### 8 [id number] #### [facility] [address] [place] [address], [place] eGFR- 48 ml/min/1.73sq m Abnormal >60 [facility] Comment on above: Order Comment: No: D o not add to previous draw Result Comment: Calc ulation may not be valid for patients over 70 years Performed By: #### 8 [id number] #### [facility] [address] [place] [address], [place] eGFR- non- 39 ml/min/1.73sq m Abnormal >60 [facility] Comment on above: Order Comment: No: D o not add to previous draw Result Comment: Calc ulation may not be valid for patients over 70 years Performed By: #### 8 [id number] #### [facility] [address] [place] [address], [place] Glucose [Mass/Vol] 90 mg/dL Normal 70-100 [facility] Comment on above: Order Comment: No: D o not add to previous draw Performed By: #### 8 [id number] #### [facility] [address] [place] [address], [place] Potassium [Moles/Vol] 4.3 mmol/L Normal 3.5-5.1 [facility] Comment on above: Order Comment: No: D o not add to previous draw Performed By: #### 8 [id number] #### [facility] [address] [place] [address], [place] Sodium [Moles/Vol] 137 mmol/L Normal 136-145 [facility] Comment on above: Order Comment: No: D o not add to previous draw Performed By: #### 8 [id number] #### [facility] [address] [place] [address], [facility] Urea nitrogen [Mass/Vol] 16 mg/dL Normal 7-25 [facility] Comment on above: Order Comment: No: D o not add to previous draw Performed By: #### 8 [id number] #### [facility] [address] [place] [address], [facility] CBC COMPLETE BLOOD COUNTon 0 - Erythrocyte distribution width (RBC) [Ratio] 19.4 % High 11.5-15.0 [facility] Comment on above: Order Comment: No: D o not add to previous draw Performed By: #### 8 [id number] #### [facility] [address] [place] [address], [facility] Hematocrit (Bld) [Volume fraction] 29.9 % Low 36.0-45.0 [facility] Comment on above: Order Comment: No: D o not add to previous draw Performed By: #### 8 [id number] #### [facility] [address] [place] [address], [facility] Hemoglobin (Bld) [Mass/Vol] 9.4 g/dL Low 12.0-15.0 [facility] Comment on above: Order Comment: No: D o not add to previous draw Performed By: #### 8 [id number] #### [facility] [address] [place] [address], [facility] MCH (RBC) [Entitic mass] 30.4 pg Normal 27.0-33.0 [facility] Comment on above: Order Comment: No: D o not add to previous draw Performed By: #### 8 [id number] #### [facility] [address] [place] [address], [facility] MCHC (RBC) [Mass/Vol] 31.4 g/dL Low 32.0-35.0 [facility] Comment on above: Order Comment: No: D o not add to previous draw Performed By: #### 8 [id number] #### [facility] [address] [place] [address], [facility] MCV (RBC) [Entitic vol] 96.8 fL Normal 82.0-98.0 [facility] Comment on above: Order Comment: No: D o not add to previous draw Performed By: #### 8 [id number] #### [facility] [address] [place] [address], [facility] Nucleated RBC/100 WBC (Bld) [Ratio] 0 % Normal 0-0 [facility] Comment on above: Order Comment: No: D o not add to previous draw Performed By: #### 8 [id number] #### [facility] [address] [place] [id number], [facility] PLAT CNT 325 10*3/uL Normal 150-400 [facility] Comment on above: Order Comment: No: D o not add to previous draw Performed By: #### 8 [id number] #### [facility] [address] [facility] [place] [address], [facility] RBC (Bld) [#/Vol] 3.09 10*6/uL Low 3.80-5.00 The [place] Comment on above: Order Comment: No: D o not add to previous draw Performed By: #### 8 [id number] #### [facility] [address] [place] [address], [facility] WBC (Bld) [#/Vol] 21.91 10*3/uL High 4.00-10.60 [facility] Comment on above: Order Comment: No: D o not add to previous draw Performed By: #### 8 [id number] #### [facility] [address] [place] [id number], [facility] CREATININE URINE RANDOMon Creatinine (U) [Mass/Vol] 40.0 mg/dL Normal [facility] Comment on above: Order Comment: The A ptima SARS-CoV-2 assay is a nucleic acid amplification test intended for the qualitative detection of RNA from SARS-CoV-2 isolated and purified from nasopharyngeal ([employer] ANALYST),oropharyngeal (OP), nasal swab, sputum, and bronchoalveolar lavage (BAL) specimens from patients with signs and symptoms of infection who are suspected of COVID-19. Results are for the identification of SARS-CoV-2 RNA. The SARS-CoV-2 RNA is generally detectable during the acute phase of infection. The Aptima SARS-CoV-2 Assay on the [employer] system is intended for use by laboratory personnel specifically instructed and trained in the operation of the [employer] system. The Aptima SARS-CoV-2 assay is [...] specimens Performed By: #### 3 [id number] #### [facility] [address] [place] [address], [facility] MAGNESIUM BLOODon 04-09-2022 Magnesium [Mass/Vol] 1.9 mg/dL Normal 1.9-2.7 [facility] Comment on above: Order Comment: No: D o not add to previous draw Performed By: #### 8 [id number] #### [facility] [address] [place] [address], [facility] OSMOLALITY URINEon OSMOLALITY 317 mOsm/kg Normal 50-1400 The [facility] Comment on above: Order Comment: The A ptima SARS-CoV-2 assay is a nucleic acid amplification test intended for the qualitative detection of RNA from SARS-CoV-2 isolated and purified from nasopharyngeal ([employer]EN MARKETING ANALYST),oropharyngeal (OP), nasal swab, sputum, and bronchoalveolar lavage (BAL) specimens from patients with signs and symptoms of infection who are suspected of COVID-19. Results are for the identification of SARS-CoV-2 RNA. The SARS-CoV-2 RNA is generally detectable during the acute phase of infection. The Aptima SARS-CoV-2 Assay on the [employer] system is intended for use by laboratory personnel specifically instructed and trained in the operation of the [employer] system. The Aptima SARS-CoV-2 assay is [...] information. Performed By: #### 3 [id number] #### [facility] [address] POC GLUCOSE LABon 04-09-2022 Glucose [Mass/Vol] 159 mg/dL High 70-100 The [facility] Comment on above: Performed By: #### 8 [id number] #### [facility] [address] [facility] [place] [address], [facility] Glucose [Mass/Vol] 141 mg/dL High 70-100 The [facility] Comment on above: Performed By: #### 8 [id number] #### [facility] [address] [facility] [address], [facility] Glucose [Mass/Vol] 337 mg/dL High 70-100 [facility] Comment on above: Performed By: #### 8 [id number] #### [facility] [address] [facility] [address], [facility] Glucose [Mass/Vol] 113 mg/dL High 70-100 The [facility] Comment on above: Order Comment: NOTE: Result Checked Performed By: #### 3 [id number] #### [facility] [address] SODIUM URINE RANDOMon 2021 Sodium (U) [Moles/Vol] 105 mmol/L Normal The [facility] Comment on above: Order Comment: The A ptima SARS-CoV-2 assay is a nucleic acid amplification test intended for the qualitative detection of RNA from SARS-CoV-2 isolated and purified from nasopharyngeal (GREEN MARKETING ANALYST),oropharyngeal (OP), nasal swab, sputum, and bronchoalveolar lavage (BAL) specimens from patients with signs and symptoms of infection who are suspected of COVID-19. Results are for the identification of SARS-CoV-2 RNA. The SARS-CoV-2 RNA is generally detectable during the acute phase of infection. The Aptima SARS-CoV-2 Assay on the [employer] system is intended for use by laboratory personnel specifically instructed and trained in the operation of the [employer] system. The Aptima SARS-CoV-2 assay is [...] specimens Performed By: #### 3 [id number] #### [facility] [address] [place] [address], [facility] UA,MICROSCOPIC REQUIREDon Appearance (U) CLEAR Normal CLEAR The [facility] Comment on above: Order Comment: No: D o not add to previous draw Performed By: #### 8 [id number] #### [facility] [address] [place] [address], [facility] Bilirubin Ql (U) Negative Normal NEGATIVE The [facility] Comment on above: Order Comment: No: D o not add to previous draw Performed By: #### 8 [id number] #### [facility] [address] [place] [address], [place] BUDDING YEAST FEW Abnormal NONE SEEN The [facility] Comment on above: Order Comment: No: D o not add to previous draw Performed By: #### 8 [id number] #### [facility] [address] [place] [address], [place] Color (U) YELLOW Normal YELLOW The [facility] Comment on above: Order Comment: No: D o not add to previous draw Performed By: #### 8 [id number] #### [facility] [address] [place] [address], [place] EPIS NONE SEEN Normal FEW,OCC,NONE SEEN The [facility] Comment on above: Order Comment: No: D o not add to previous draw Performed By: #### 8 [id number] #### [facility] [address] [place] [address], [place] Glucose Ql (U) Negative Normal NEGATIVE The [facility] Comment on above: Order Comment: No: D o not add to previous draw Performed By: #### 8 [id number] #### [facility] [address] [place] [address], [place] Hemoglobin Ql (U) SMALL Abnormal NEGATIVE The [facility] Comment on above: Order Comment: No: D o not add to previous draw Performed By: #### 8 [id number] #### [facility] [address] [place] [address], [place] KETONE Negative Normal NEGATIVE The [facility] Comment on above: Order Comment: No: D o not add to previous draw Performed By: #### 8 [id number] #### [facility] [address] [place] [address], [place] LEUK LUIS ANTONIO Negative Normal NEGATIVE The [facility] Comment on above: Order Comment: No: D o not add to previous draw Performed By: #### 8 [id number] #### [facility] [address] [place] [address], [place] Nitrite Ql (U) Negative Normal NEGATIVE The [facility] Comment on above: Order Comment: No: D o not add to previous draw Performed By: #### 8 [id number] #### [facility] [address] [place] [address], [facility] pH (U) 7.0 [pH] Normal 5.0-8.0 [facility] Comment on above: Order Comment: No: D o not add to previous draw Performed By: #### 8 [id number] #### [facility] [address] [place] [address], [facility] Protein Ql (U) Negative Normal NEGATIVE The [facility] Comment on above: Order Comment: No: D o not add to previous draw Performed By: #### 8 [id number] #### [facility] [address] [place] [address], [facility] RBC 0-2 Abnormal NONE SEEN The [facility] Comment on above: Order Comment: No: D o not add to previous draw Performed By: #### 8 [id number] #### [facility] [address] [place] [address], [facility] SPEC GRAV 1.008 Low 1.015-1.020 The [facility] Comment on above: Order Comment: No: D o not add to previous draw Performed By: #### 8 [id number] #### [facility] [address] [place] [address], [facility] WBC UA NONE SEEN Normal NONE SEEN The [facility] Comment on above: Order Comment: No: D o not add to previous draw Performed By: #### 8 [id number] #### [facility] [address] *BLOOD CULTUREon 04-08-2022 *BLOOD CULTURE Clinical Report: (D) Specimen: BLOOD CULTURE Collected: 04/08/2022 18:50 Status: Final Last Updated: 04/14/2022 06:21 CULT RES (Final) No Growth Day 5 Normal The [facility] Comment on above: Performed By: #### 3 0313 #### [facility] [address] [place] [address], [facility] *BLOOD CULTURE Clinical Report: (D) Specimen: BLOOD CULTURE Collected: 04/08/2022 15:33 Status: Final Last Updated: 04/14/2022 06:21 (1) Per denisha Fernandez.labs to be drawn at three CULT RES (Final) No Growth Day 5 Normal [facility] Comment on above: Order Comment: No: D o not add to previous draw Performed By: #### 5 [id number] #### [facility] [address] [place] [address], [facility] BASIC METABOLIC PANELon 03-19 Calcium [Mass/Vol] 8.9 mg/dL Normal 8.6-10.3 [facility] Comment on above: Order Comment: No: D o not add to previous draw Performed By: #### 2 2706 #### [facility] [address] [place] [address], [place] Chloride [Moles/Vol] 105 mmol/L Normal 98-107 [facility] Comment on above: Order Comment: No: D o not add to previous draw Performed By: #### 2 2706 #### [facility] [address] [place] [address], [place] CO2 [Moles/Vol] 24 mmol/L Normal 21-[address] [facility] Comment on above: Order Comment: No: D o not add to previous draw Performed By: #### 2 2706 #### [facility] [address] [place] [address], [place] Creatinine [Mass/Vol] 1.03 mg/dL Normal 0.60-1.20 [facility] Comment on above: Order Comment: No: D o not add to previous draw Performed By: #### 2 2706 #### [facility] [address] [place] [address], [place] eGFR- non- 51 ml/min/1.73sq m Abnormal >60 The [facility] Comment on above: Order Comment: No: D o not add to previous draw Result Comment: Calc ulation may not be valid for patients over 70 years Performed By: #### 2 2706 #### [facility] [address] [place] [address], [place] GFR/1.73 sq M.predicted among blacks MDRD (S/P/Bld) [Vol rate/Area] mL/min/{1.73_m2} Normal >60 The [facility] Comment on above: Order Comment: No: D o not add to previous draw Result Comment: Calc ulation may not be valid for patients over 70 years Performed By: #### 2 2706 #### [facility] [address] [place] [address], [place] Glucose [Mass/Vol] 113 mg/dL High 70-100 [facility] Comment on above: Order Comment: No: D o not add to previous draw Performed By: #### 2 2706 #### [facility] [address] [place] [address], [place] Potassium [Moles/Vol] 4.1 mmol/L Normal 3.5-5.1 [facility] Comment on above: Order Comment: No: D o not add to previous draw Performed By: #### 2 2706 #### [facility] [address] [place] [address], [place] Sodium [Moles/Vol] 136 mmol/L Normal 136-145 [facility] Comment on above: Order Comment: No: D o not add to previous draw Performed By: #### 2 2706 #### [facility] [address] [place] [address], [place] Urea nitrogen [Mass/Vol] 11 mg/dL Normal 7-25 [facility] Comment on above: Order Comment: No: D o not add to previous draw Performed By: #### 2 2706 #### [facility] [address] [place] [address], [facility] CBC W/DIFFon 04-08-2022 ABS IMM GRANS 0.4 10*3/uL High 0.0-0.2 The [facility] Comment on above: Performed By: #### 8 [id number] #### [facility] [address] [place] [address], [facility] ABS NEUTROPHILS 24.5 10*3/uL High 1.6-7.6 The [facility] Comment on above: Performed By: #### 8 [id number] #### [facility] [address] [place] [address], [facility] ANISO Moderate Normal The [facility] Comment on above: Performed By: #### 8 [id number] #### [facility] [address] [place] [address], [facility] Basophils (Bld) [#/Vol] 0.2 10*3/uL Normal 0.0-0.2 [facility] Comment on above: Performed By: #### 8 [id number] #### [facility] [address] [place] [address], [facility] Basophils/100 WBC (Bld) 0.6 % Normal 0.0-1.0 [facility] Comment on above: Performed By: #### 8 [id number] #### [facility] [address] [facility] [place] [address], [facility] Eosinophils (Bld) [#/Vol] 0.0 10*3/uL Normal 0.0-0.5 [facility] Comment on above: Performed By: #### 8 [id number] #### [facility] [address] [place] [address], [facility] Eosinophils/100 WBC (Bld) 0.1 % Normal 0.0-6.0 [facility] Comment on above: Performed By: #### 8 [id number] #### [facility] [address] [facility]. [address] Erythrocyte distribution width (RBC) [Ratio] 19.1 % High 11.5-15.0 [facility] Comment on above: Performed By: #### 8 [id number] #### [facility] [address] [place] [address], [facility] Hematocrit (Bld) [Volume fraction] 32.3 % Low 36.0-45.0 [facility] Comment on above: Performed By: #### 8 [id number] #### [facility] [address] [facility]. [address] Hemoglobin (Bld) [Mass/Vol] 10.1 g/dL Low 12.0-15.0 [facility] Comment on above: Performed By: #### 8 [id number] #### [facility] [address] IMMATURE GRANS 1.5 % High 0.0-1.0 The [facility] Comment on above: Performed By: #### 8 [id number] #### [facility] [address] [place] [address], [facility] Lymphocytes (Bld) [#/Vol] 1.5 10*3/uL Normal 1.2-4.0 [facility] Comment on above: Performed By: #### 8 [id number] #### [facility] [address] [facility] [place] [address], [facility] Lymphocytes/100 WBC (Bld) 5.5 % Low 20.0-45.0 [facility] Comment on above: Performed By: #### 8 [id number] #### [facility] [address] [facility] [place] [address], [facility] MCH (RBC) [Entitic mass] 30.4 pg Normal 27.0-33.0 [facility] Comment on above: Performed By: #### 8 [id number] #### [facility] [address] [facility] [place] [address], [facility] MCHC (RBC) [Mass/Vol] 31.3 g/dL Low 32.0-35.0 [facility] Comment on above: Performed By: #### 8 [id number] #### [facility] [address] [place] [id number], [facility] MCV (RBC) [Entitic vol] 97.3 fL Normal 82.0-98.0 [facility] Comment on above: Performed By: #### 8 [id number] #### [facility] [address] [address], [facility] Monocytes (Bld) [#/Vol] 0.6 10*3/uL Normal 0.1-1.0 [facility] Comment on above: Performed By: #### 8 [id number] #### [facility] [address] [place] [address], [facility] MONOS 2.1 % Low 5.0-12.0 [facility] Comment on above: Performed By: #### 8 [id number] #### [facility] [address] [place] [address], [facility] Neutrophils/100 WBC (Bld) 90.2 % High 40.0-72.0 [facility] Comment on above: Performed By: #### 8 [id number] #### [facility] [address] [place] [id number], [facility] Nucleated RBC/100 WBC (Bld) [Ratio] 0 % Normal 0-0 [facility] Comment on above: Performed By: #### 8 [id number] #### [facility] [address] [place] [id number], [facility] PLAT CNT 321 10*3/uL Normal 150-400 [facility] Comment on above: Performed By: #### 8 [id number] #### [facility] [address] [place] [address], [place] POIK Slight Normal [facility] Comment on above: Performed By: #### 8 [id number] #### [facility] [address] [place] [address], [place] POLY Slight Normal [facility] Comment on above: Performed By: #### 8 [id number] #### [facility] [address] [place] [address], [place] RBC (Bld) [#/Vol] 3.32 10*6/uL Low 3.80-5.00 The [place] Comment on above: Performed By: #### 8 [id number] #### [facility] [address] [place] [address], [place] WBC (Bld) [#/Vol] 27.12 10*3/uL High 4.00-10.60 [facility] Comment on above: Performed By: #### 8 [id number] #### [facility] [address] [place] [address], [place] MAGNESIUM BLOODon 04-08-2022 Magnesium [Mass/Vol] 1.4 mg/dL Low 1.9-2.7 [facility] Comment on above: Order Comment: No: D o not add to previous draw Performed By: #### 2 2706 #### [facility] [address] [place] [address], [place] POC GLUCOSE LABon 04-08-2022 Glucose [Mass/Vol] 129 mg/dL High 70-100 [facility] Comment on above: Performed By: #### 8 [id number] #### [facility] [address] [place] [address], [place] Glucose [Mass/Vol] 130 mg/dL High 70-100 [facility] Comment on above: Performed By: #### 5 0608 #### [facility] [address] [place] [address], [place] Glucose [Mass/Vol] 132 mg/dL High 70-100 [facility] Comment on above: Performed By: #### 8 [id number] #### [facility] [address] [place] [address], [place] Glucose [Mass/Vol] 129 mg/dL High 70-100 [facility] Comment on above: Performed By: #### 8 [id number] #### [facility] [address] [place] [address], [place] BASIC METABOLIC PANELon 05-2 Calcium [Mass/Vol] 7.8 mg/dL Low 8.6-10.3 [facility] Comment on above: Order Comment: No: D o not add to previous draw Performed By: #### 8 [id number] #### [facility] [address] [place] [address], [place] Chloride [Moles/Vol] 107 mmol/L Normal 98-107 [facility] Comment on above: Order Comment: No: D o not add to previous draw Performed By: #### 8 [id number] #### [facility] [address] [place] [address], [place] CO2 [Moles/Vol] 26 mmol/L Normal 21-[address] [facility] Comment on above: Order Comment: No: D o not add to previous draw Performed By: #### 8 [id number] #### [facility] [address] [place] [address], [place] Creatinine [Mass/Vol] 1.14 mg/dL Normal 0.60-1.20 [facility] Comment on above: Order Comment: No: D o not add to previous draw Performed By: #### 8 [id number] #### [facility] [address] [place] [address], [place] eGFR- 55 ml/min/1.73sq m Abnormal >60 [facility] Comment on above: Order Comment: No: D o not add to previous draw Result Comment: Calc ulation may not be valid for patients over 70 years Performed By: #### 8 [id number] #### [facility] [address] [place] [address], [place] eGFR- non- 45 ml/min/1.73sq m Abnormal >60 [facility] Comment on above: Order Comment: No: D o not add to previous draw Result Comment: Calc ulation may not be valid for patients over 70 years Performed By: #### 8 [id number] #### [facility] [address] [place] [address], [place] Glucose [Mass/Vol] 96 mg/dL Normal 70-100 [facility] Comment on above: Order Comment: No: D o not add to previous draw Performed By: #### 8 [id number] #### [facility] [address] [place] [address], [place] Potassium [Moles/Vol] 4.0 mmol/L Normal 3.5-5.1 [facility] Comment on above: Order Comment: No: D o not add to previous draw Performed By: #### 8 [id number] #### [facility] [address] [place] [address], [place] Sodium [Moles/Vol] 139 mmol/L Normal 136-145 [facility] Comment on above: Order Comment: No: D o not add to previous draw Performed By: #### 8 [id number] #### [facility] [address] [place] [address], [place] Urea nitrogen [Mass/Vol] 13 mg/dL Normal 7-25 [facility] Comment on above: Order Comment: No: D o not add to previous draw Performed By: #### 8 [id number] #### [facility] [address] [place] [address], [place] CBC COMPLETE BLOOD COUNTon 0 - Erythrocyte distribution width (RBC) [Ratio] 19.3 % High 11.5-15.0 [facility] Comment on above: Order Comment: No: D o not add to previous draw Performed By: #### 5 0608 #### [facility] [address] [place] [address], [facility] Hematocrit (Bld) [Volume fraction] 27.9 % Low 36.0-45.0 [facility] Comment on above: Order Comment: No: D o not add to previous draw Performed By: #### 5 0608 #### [facility] [address] [place] [address], [facility] Hemoglobin (Bld) [Mass/Vol] 8.4 g/dL Low 12.0-15.0 [facility] Comment on above: Order Comment: No: D o not add to previous draw Performed By: #### 5 0608 #### [facility] [address] [place] [address], [facility] MCH (RBC) [Entitic mass] 29.9 pg Normal 27.0-33.0 [facility] Comment on above: Order Comment: No: D o not add to previous draw Performed By: #### 5 0608 #### [facility] [address] [address], [facility] MCHC (RBC) [Mass/Vol] 30.1 g/dL Low 32.0-35.0 [facility] Comment on above: Order Comment: No: D o not add to previous draw Performed By: #### 5 0608 #### [facility] [address] [address], [facility] MCV (RBC) [Entitic vol] 99.3 fL High 82.0-98.0 [facility] Comment on above: Order Comment: No: D o not add to previous draw Performed By: #### 5 0608 #### [facility] [address] [facility] [place] [address], [facility] Nucleated RBC/100 WBC (Bld) [Ratio] 0 % Normal 0-0 [facility] Comment on above: Order Comment: No: D o not add to previous draw Performed By: #### 5 0608 #### [facility] [address] [place] [address], [place] PLAT CNT 281 10*3/uL Normal 150-400 [facility] Comment on above: Order Comment: No: D o not add to previous draw Performed By: #### 5 0608 #### [facility] [address] [place] [address], [place] RBC (Bld) [#/Vol] 2.81 10*6/uL Low 3.80-5.00 The [place] Comment on above: Order Comment: No: D o not add to previous draw Performed By: #### 5 0608 #### [facility] [address] [place] [address], [place] WBC (Bld) [#/Vol] 22.46 10*3/uL High 4.00-10.60 [facility] Comment on above: Order Comment: No: D o not add to previous draw Performed By: #### 5 0608 #### [facility] [address] [place] [id number], [facility] MAGNESIUM BLOODon 04-07-2022 Magnesium [Mass/Vol] 1.7 mg/dL Low 1.9-2.7 [facility] Comment on above: Order Comment: No: D o not add to previous draw Performed By: #### 8 [id number] #### [facility] [address] [place] [id number], [facility] POC GLUCOSE LABon 04-07-2022 Glucose [Mass/Vol] 192 mg/dL High 70-100 [facility] Comment on above: Performed By: #### 8 [id number] ####[facility] [id number], [facility] Glucose [Mass/Vol] 139 mg/dL High 70-100 [facility] Comment on above: Performed By: #### 8 [id number] #### [facility] [address] [place] [address], [place] Glucose [Mass/Vol] 144 mg/dL High 70-100 [facility] Comment on above: Performed By: #### 8 [id number] #### [facility] [address] [place] [address], [place] Glucose [Mass/Vol] 111 mg/dL High 70-100 [facility] Comment on above: Performed By: #### 8 [id number] #### [facility] [address] [place] [address], [place] BASIC METABOLIC PANELon 05-2 0-2021 Calcium [Mass/Vol] 8.2 mg/dL Low 8.6-10.3 [facility] Comment on above: Order Comment: Bleed , altereed mental status Performed By: #### 0 0071, [id number], [id number], 34419, 92254 ####[facility] [place] [address], [place] Chloride [Moles/Vol] 106 mmol/L Normal 98-107 [facility] Comment on above: Order Comment: Bleed , altereed mental status Performed By: #### 0 0071, 82454, 64508, [id number], 50671 ####[facility] [place] [address], [place] CO2 [Moles/Vol] 27 mmol/L Normal 21-[address] [facility] Comment on above: Order Comment: Bleed , altereed mental status Performed By: #### 0 0071, 89592, 61342, 28676, 88852 ####[facility] [place] [address], [place] Creatinine [Mass/Vol] 1.07 mg/dL Normal 0.60-1.20 The [facility] Comment on above: Order Comment: Bleed , altereed mental status Performed By: #### 0 0071, 49216, 26230, 02835, 11031 ####[facility] eGFR- 59 ml/min/1.73sq m Abnormal >60 The [facility] Comment on above: Order Comment: Bleed , altereed mental status Result Comment: Calc ulation may not be valid for patients over 70 years Performed By: #### 0 0071, 81460, 47342, 92724, 97132 ####[facility] eGFR- non- 49 ml/min/1.73sq m Abnormal >60 The [facility] Comment on above: Order Comment: Bleed , altereed mental status Result Comment: Calc ulation may not be valid for patients over 70 years Performed By: #### 0 0071, 25082, 58768, 42795, 10950 ####[facility] [place] [address], [facility] Glucose [Mass/Vol] 100 mg/dL Normal 70-100 The [facility] Comment on above: Order Comment: Bleed , altereed mental status Performed By: #### 0 0071, 81258, 27298, 56809, 29674 ####[facility] [place] [address], [facility] Potassium [Moles/Vol] 4.0 mmol/L Normal 3.5-5.1 The [facility] Comment on above: Order Comment: Bleed , altereed mental status Performed By: #### 0 0071, 25385, 28657, 92278, 68100 ####[facility] [place] [address], [place] Sodium [Moles/Vol] 139 mmol/L Normal 136-145 The [facility] Comment on above: Order Comment: Bleed , altereed mental status Performed By: #### 0 0071, 46373, 59177, 69894, 74903 ####[facility] Urea nitrogen [Mass/Vol] 15 mg/dL Normal 7-25 [facility] Comment on above: Order Comment: Bleed , altereed mental status Performed By: #### 0 0071, 19258, 92195, 46223, 29549 ####[facility] BNP (B-TYPE NATRIURETIC PEPT KAELA)on 04-06-2022 Natriuretic peptide B (Bld) [Mass/Vol] 487 pg/mL High 0-100 The [facility] Comment on above: Order Comment: Yes: Add to Previous draw if able Result Comment: Give n the appropriate clinical setting a BNP result of >100 pg/mL indicates congestive heart failure. Performed By: #### 8 [id number] #### [facility] [address] [place] [address], [facility] CBC W/DIFFon 04-06-2022 ABS IMM GRANS 0.5 10*3/uL High 0.0-0.2 The [facility] Comment on above: Order Comment: No: D o not add to previous draw Performed By: #### 8 [id number] #### [facility] [address] [place] [address], [facility] ABS NEUTROPHILS 18.4 10*3/uL High 1.6-7.6 The [facility] Comment on above: Order Comment: No: D o not add to previous draw Performed By: #### 8 [id number] #### [facility] [address] [place] [address], [facility] Basophils (Bld) [#/Vol] 0.1 10*3/uL Normal 0.0-0.2 The [facility] Comment on above: Order Comment: No: D o not add to previous draw Performed By: #### 8 [id number] #### [facility] [address] [place] [address], [facility] Basophils/100 WBC (Bld) 0.5 % Normal 0.0-1.0 The [facility] Comment on above: Order Comment: No: D o not add to previous draw Performed By: #### 8 [id number] #### [facility] [address] [place] [address], [facility] Eosinophils (Bld) [#/Vol] 0.0 10*3/uL Normal 0.0-0.5 [facility] Comment on above: Order Comment: No: D o not add to previous draw Performed By: #### 8 [id number] #### [facility] [address] [place] [address], [facility] Eosinophils/100 WBC (Bld) 0.0 % Normal 0.0-6.0 [facility] Comment on above: Order Comment: No: D o not add to previous draw Performed By: #### 8 [id number] #### [facility] [address] [facility] Erythrocyte distribution width (RBC) [Ratio] 19.4 % High 11.5-15.0 The [facility] Comment on above: Order Comment: No: D o not add to previous draw Performed By: #### 8 [id number] #### [facility] [address] [place] [address], [facility] Hematocrit (Bld) [Volume fraction] 28.6 % Low 36.0-45.0 The [facility] Comment on above: Order Comment: No: D o not add to previous draw Performed By: #### 8 [id number] #### [facility] [address] [place] [address], [facility] Hemoglobin (Bld) [Mass/Vol] 8.8 g/dL Low 12.0-15.0 [facility] Comment on above: Order Comment: No: D o not add to previous draw Performed By: #### 8 [id number] #### [facility] [address] [place] [id number], [facility] IMMATURE GRANS 2.3 % High 0.0-1.0 The [facility] Comment on above: Order Comment: No: D o not add to previous draw Performed By: #### 8 [id number] #### [facility] [address] [place] [address], [facility] Lymphocytes (Bld) [#/Vol] 1.5 10*3/uL Normal 1.2-4.0 [facility] Comment on above: Order Comment: No: D o not add to previous draw Performed By: #### 8 [id number] #### [facility] [address] [place] [address], [facility] Lymphocytes/100 WBC (Bld) 7.2 % Low 20.0-45.0 [facility] Comment on above: Order Comment: No: D o not add to previous draw Performed By: #### 8 [id number] #### [facility] [address] [place] [id number], [facility] MCH (RBC) [Entitic mass] 30.1 pg Normal 27.0-33.0 [facility] Comment on above: Order Comment: No: D o not add to previous draw Performed By: #### 8 [id number] #### [facility] [address] [place] [address], [facility] MCHC (RBC) [Mass/Vol] 30.8 g/dL Low 32.0-35.0 [facility] Comment on above: Order Comment: No: D o not add to previous draw Performed By: #### 8 [id number] #### [facility] [address] [place] [id number], [facility] MCV (RBC) [Entitic vol] 97.9 fL Normal 82.0-98.0 [facility] Comment on above: Order Comment: No: D o not add to previous draw Performed By: #### 8 [id number] #### [facility] [address] [place] [address], [facility] Monocytes (Bld) [#/Vol] 0.3 10*3/uL Normal 0.1-1.0 The [facility] Comment on above: Order Comment: No: D o not add to previous draw Performed By: #### 8 [id number] #### [facility] [address] [place] [address], [place] MONOS 1.6 % Low 5.0-12.0 [facility] Comment on above: Order Comment: No: D o not add to previous draw Performed By: #### 8 [id number] #### [facility] [address] [place] [address], [facility] Neutrophils/100 WBC (Bld) 88.4 % High 40.0-72.0 [facility] Comment on above: Order Comment: No: D o not add to previous draw Performed By: #### 8 [id number] #### [facility] [address] [place] [address], [facility] Nucleated RBC/100 WBC (Bld) [Ratio] 0 % Normal 0-0 [facility] Comment on above: Order Comment: No: D o not add to previous draw Performed By: #### 8 [id number] #### [facility] [address] [place] [address], [place] PLAT CNT 279 10*3/uL Normal 150-400 The [facility] Comment on above: Order Comment: No: D o not add to previous draw Performed By: #### 8 [id number] #### [facility] [address] [place] [address], [facility] RBC (Bld) [#/Vol] 2.92 10*6/uL Low 3.80-5.00 The [place] Comment on above: Order Comment: No: D o not add to previous draw Performed By: #### 8 [id number] #### [facility] [address] [place] [address], [place] WBC (Bld) [#/Vol] 20.84 10*3/uL High 4.00-10.60 [facility] Comment on above: Order Comment: No: D o not add to previous draw Performed By: #### 8 [id number] #### [facility] [address] [place] [address], [facility] DIGOXINon 04-06-2022 Digoxin [Mass/Vol] 1.0 ng/mL Normal 0.7-2.0 The [facility] Comment on above: Performed By: #### 0 0071, 53306, 40353, 20714, 70360 ####[facility] [place] [address], [facility] LIPASE BLOODon 04-06-2022 LIPASE 68 Units/L Normal 11-82 [facility] Comment on above: Performed By: #### 0 0071, 24228, 36490, 96666, 90441 ####[facility] [place] [address], [facility] MAGNESIUM BLOODon 04-06-2022 Magnesium [Mass/Vol] 1.6 mg/dL Low 1.9-2.7 The [facility] Comment on above: Order Comment: Bleed , altereed mental status Performed By: #### 0 0071, 20314, 19205, 39384, 85635 ####[facility] [place] [address], [facility] PHOSPHORUS BLOODon Phosphate [Mass/Vol] 3.5 mg/dL Normal 2.5-5.0 The [facility] Comment on above: Order Comment: No: D o not add to previous draw Performed By: #### 8 [id number] #### [facility] [address] [place] [address], [place] POC GLUCOSE LABon 04-06-2022 Glucose [Mass/Vol] 121 mg/dL High 70-100 The [facility] Comment on above: Performed By: #### 3 0313 #### [facility] [address] [place] [address], [place] Glucose [Mass/Vol] 171 mg/dL High 70-100 The [facility] Comment on above: Performed By: #### 8 [id number] #### [facility] [address] [place] [address], [facility] Glucose [Mass/Vol] 178 mg/dL High 70-100 The [facility] Comment on above: Performed By: #### 8 [id number] #### [facility] [address] [address], [facility] Glucose [Mass/Vol] 102 mg/dL High 70-100 The [facility] Comment on above: Performed By: #### 5 0608 #### [facility] [address] [facility]. [address] APTTon 04-05-2022 aPTT Coag (Bld) [Time] 29.7 s Normal 25.0-35.0 [facility] Comment on above: Order Comment: [...] PURPOSE. Performed By: #### 8 [id number] #### [facility] [address] [facility] [place] [address], [facility] CBC W/DIFFon 04-05-2022 ABS IMM GRANS 0.4 10*3/uL High 0.0-0.2 The [facility] Comment on above: Order Comment: No: D o not add to previous draw Performed By: #### 8 [id number] #### [facility] [address] [place] [address], [facility] ABS NEUTROPHILS 19.7 10*3/uL High 1.6-7.6 The [facility] Comment on above: Order Comment: No: D o not add to previous draw Performed By: #### 8 [id number] #### [facility] [address] [place] [address], [facility] ANISO Moderate Normal The [facility] Comment on above: Order Comment: No: D o not add to previous draw Performed By: #### 8 [id number] #### [facility] [address] [place] [address], [place] Basophils (Bld) [#/Vol] 0.2 10*3/uL Normal 0.0-0.2 [facility] Comment on above: Order Comment: No: D o not add to previous draw Performed By: #### 8 [id number] #### [facility] [address] [place] [address], [facility] Basophils/100 WBC (Bld) 0.7 % Normal 0.0-1.0 [facility] Comment on above: Order Comment: No: D o not add to previous draw Performed By: #### 8 [id number] #### [facility] [address] [place] [address], [place] Eosinophils (Bld) [#/Vol] 0.0 10*3/uL Normal 0.0-0.5 [facility] Comment on above: Order Comment: No: D o not add to previous draw Performed By: #### 8 [id number] #### [facility] [address] [place] [address], [facility] Eosinophils/100 WBC (Bld) 0.1 % Normal 0.0-6.0 [facility] Comment on above: Order Comment: No: D o not add to previous draw Performed By: #### 8 [id number] #### [facility] [address] [place] [address], [place] Erythrocyte distribution width (RBC) [Ratio] 19.5 % High 11.5-15.0 [facility] Comment on above: Order Comment: No: D o not add to previous draw Performed By: #### 8 [id number] #### [facility] [address] [address], [facility] Hematocrit (Bld) [Volume fraction] 27.8 % Low 36.0-45.0 [facility] Comment on above: Order Comment: No: D o not add to previous draw Performed By: #### 8 [id number] #### [facility] [address] [place] [address], [facility] Hemoglobin (Bld) [Mass/Vol] 8.6 g/dL Low 12.0-15.0 [facility] Comment on above: Order Comment: No: D o not add to previous draw Performed By: #### 8 [id number] #### [facility] [address] [facility] [place] [address], [facility] IMMATURE GRANS 2.0 % High 0.0-1.0 The [facility] [employer] [facility] Comment on above: Order Comment: No: D o not add to previous draw Performed By: #### 8 [id number] #### [facility] [address] [place] [address], [facility] Lymphocytes (Bld) [#/Vol] 1.4 10*3/uL Normal 1.2-4.0 [facility] Comment on above: Order Comment: No: D o not add to previous draw Performed By: #### 8 [id number] #### [facility] [address] [address], [facility] Lymphocytes/100 WBC (Bld) 6.5 % Low 20.0-45.0 [facility] Comment on above: Order Comment: No: D o not add to previous draw Performed By: #### 8 [id number] #### [facility] [address] [facility]. [place] [id number], [facility] MCH (RBC) [Entitic mass] 30.3 pg Normal 27.0-33.0 [facility] Comment on above: Order Comment: No: D o not add to previous draw Performed By: #### 8 [id number] #### [facility] [address] MCHC (RBC) [Mass/Vol] 30.9 g/dL Low 32.0-35.0 [facility] Comment on above: Order Comment: No: D o not add to previous draw Performed By: #### 8 [id number] #### [facility] [address] [place] [id number], [facility] MCV (RBC) [Entitic vol] 97.9 fL Normal 82.0-98.0 [facility] Comment on above: Order Comment: No: D o not add to previous draw Performed By: #### 8 [id number] #### [facility] [address] [address], [facility] Monocytes (Bld) [#/Vol] 0.4 10*3/uL Normal 0.1-1.0 [facility] Comment on above: Order Comment: No: D o not add to previous draw Performed By: #### 8 [id number] #### [facility] [address] [place] [address], [facility] MONOS 1.9 % Low 5.0-12.0 [facility] Comment on above: Order Comment: No: D o not add to previous draw Performed By: #### 8 [id number] #### [facility] [address] [address], [facility] Neutrophils/100 WBC (Bld) 88.8 % High 40.0-72.0 [facility] Comment on above: Order Comment: No: D o not add to previous draw Performed By: #### 8 [id number] #### [facility] [address] [facility] [place] [address], [facility] Nucleated RBC/100 WBC (Bld) [Ratio] 0 % Normal 0-0 [facility] Comment on above: Order Comment: No: D o not add to previous draw Performed By: #### 8 [id number] #### [facility] [address] [place] [address], [facility] PLAT CNT 303 10*3/uL Normal 150-400 The [facility] Comment on above: Order Comment: No: D o not add to previous draw Performed By: #### 8 [id number] #### [facility] [address] [facility]. [address] POIK Slight Normal [facility] Comment on above: Order Comment: No: D o not add to previous draw Performed By: #### 8 [id number] #### [facility] [address] [facility] [place] [address], [facility] POLY Slight Normal [facility] Comment on above: Order Comment: No: D o not add to previous draw Performed By: #### 8 [id number] #### [facility] [address] RBC (Bld) [#/Vol] 2.84 10*6/uL Low 3.80-5.00 The [place] Comment on above: Order Comment: No: D o not add to previous draw Performed By: #### 8 [id number] #### [facility] [address] [facility]. [address] WBC (Bld) [#/Vol] 22.20 10*3/uL High 4.00-10.60 [facility] Comment on above: Order Comment: No: D o not add to previous draw Performed By: #### 8 [id number] #### [facility] [address] [facility]. [address] COMP METABOLIC PANELon 04-05 Albumin [Mass/Vol] 2.5 g/dL Low 3.5-5.7 [facility] Comment on above: Order Comment: The A ptima SARS-CoV-2 assay is a nucleic acid amplification test intended for the qualitative detection of RNA from SARS-CoV-2 isolated and purified from nasopharyngeal ([employer]EN MARKETING ANALYST),oropharyngeal (OP), nasal swab, sputum, and bronchoalveolar lavage (BAL) specimens from patients with signs and symptoms of infection who are suspected of COVID-19. Results are for the identification of SARS-CoV-2 RNA. The SARS-CoV-2 RNA is generally detectable during the acute phase of infection. The Aptima SARS-CoV-2 Assay on the [employer] system is intended for use by laboratory personnel specifically instructed and trained in the operation of the [employer] system. The Aptima SARS-CoV-2 assay is [...] information. Performed By: #### 3 1792 #### [facility] [address] [facility] ALKALINE PHOSPH 100 IU/L Normal 34-[address] [facility] Comment on above: Order Comment: The A ptima SARS-CoV-2 assay is a nucleic acid amplification test intended for the qualitative detection of RNA from SARS-CoV-2 isolated and purified from nasopharyngeal (GREEN MARKETING ANALYST),oropharyngeal (OP), nasal swab, sputum, and bronchoalveolar lavage (BAL) specimens from patients with signs and symptoms of infection who are suspected of COVID-19. Results are for the identification of SARS-CoV-2 RNA. The SARS-CoV-2 RNA is generally detectable during the acute phase of infection. The Aptima SARS-CoV-2 Assay on the [employer] system is intended for use by laboratory personnel specifically instructed and trained in the operation of the [employer] system. The Aptima SARS-CoV-2 assay is [...] information. Performed By: #### 3 1792 #### [facility] [address] [facility] [place] [address], [facility] ALT [Catalytic activity/Vol] 13 U/L Normal 7-52 [facility] Comment on above: Order Comment: The A ptima SARS-CoV-2 assay is a nucleic acid amplification test intended for the qualitative detection of RNA from SARS-CoV-2 isolated and purified from nasopharyngeal (GREEN MARKETING ANALYST),oropharyngeal (OP), nasal swab, sputum, and bronchoalveolar lavage (BAL) specimens from patients with signs and symptoms of infection who are suspected of COVID-19. Results are for the identification of SARS-CoV-2 RNA. The SARS-CoV-2 RNA is generally detectable during the acute phase of infection. The Aptima SARS-CoV-2 Assay on the [employer] Fusion system is intended for use by laboratory personnel specifically instructed and trained in the operation of the [employer] Fusion system. The Aptima SARS-CoV-2 assay is [...] information. Performed By: #### 3 1792 #### [facility] [address] [facility] [place] [address], [facility] AST [Catalytic activity/Vol] 12 U/L Low 13-39 [facility] Comment on above: Order Comment: The A ptima SARS-CoV-2 assay is a nucleic acid amplification test intended for the qualitative detection of RNA from SARS-CoV-2 isolated and purified from nasopharyngeal (GREEN MARKETING ANALYST),oropharyngeal (OP), nasal swab, sputum, and bronchoalveolar lavage (BAL) specimens from patients with signs and symptoms of infection who are suspected of COVID-19. Results are for the identification of SARS-CoV-2 RNA. The SARS-CoV-2 RNA is generally detectable during the acute phase of infection. The Aptima SARS-CoV-2 Assay on the [employer] system is intended for use by laboratory personnel specifically instructed and trained in the operation of the [employer] system. The Aptima SARS-CoV-2 assay is [...] information. Performed By: #### 3 1792 #### [facility] [address] [place] [address], [facility] Bilirubin [Mass/Vol] 0.8 mg/dL Normal 0.3-1.0 The [facility] Comment on above: Order Comment: The A ptima SARS-CoV-2 assay is a nucleic acid amplification test intended for the qualitative detection of RNA from SARS-CoV-2 isolated and purified from nasopharyngeal (GREEN MARKETING ANALYST),oropharyngeal (OP), nasal swab, sputum, and bronchoalveolar lavage (BAL) specimens from patients with signs and symptoms of infection who are suspected of COVID-19. Results are for the identification of SARS-CoV-2 RNA. The SARS-CoV-2 RNA is generally detectable during the acute phase of infection. The Aptima SARS-CoV-2 Assay on the [employer] system is intended for use by laboratory personnel specifically instructed and trained in the operation of the [employer] system. The Aptima SARS-CoV-2 assay is [...] information. Performed By: #### 3 1792 #### [facility] [address] [place] [address], [place] Calcium [Mass/Vol] 8.1 mg/dL Low 8.6-10.3 [facility] Comment on above: Order Comment: The A ptima SARS-CoV-2 assay is a nucleic acid amplification test intended for the qualitative detection of RNA from SARS-CoV-2 isolated and purified from nasopharyngeal (GREEN MARKETING ANALYST),oropharyngeal (OP), nasal swab, sputum, and bronchoalveolar lavage (BAL) specimens from patients with signs and symptoms of infection who are suspected of COVID-19. Results are for the identification of SARS-CoV-2 RNA. The SARS-CoV-2 RNA is generally detectable during the acute phase of infection. The Aptima SARS-CoV-2 Assay on the [employer] Fusion system is intended for use by laboratory personnel specifically instructed and trained in the operation of the [employer] Fusion system. The Aptima SARS-CoV-2 assay is [...] information. Performed By: #### 3 1792 #### [address] [facility] Chloride [Moles/Vol] 106 mmol/L Normal 98-107 [facility] Comment on above: Order Comment: The A ptima SARS-CoV-2 assay is a nucleic acid amplification test intended for the qualitative detection of RNA from SARS-CoV-2 isolated and purified from nasopharyngeal (GREEN MARKETING ANALYST),oropharyngeal (OP), nasal swab, sputum, and bronchoalveolar lavage (BAL) specimens from patients with signs and symptoms of infection who are suspected of COVID-19. Results are for the identification of SARS-CoV-2 RNA. The SARS-CoV-2 RNA is generally detectable during the acute phase of infection. The Aptima SARS-CoV-2 Assay on the [employer] system is intended for use by laboratory personnel specifically instructed and trained in the operation of the [employer] system. The Aptima SARS-CoV-2 assay is [...] information. Performed By: #### 3 [id number] #### [facility] [address] [place] [address], [facility] CO2 [Moles/Vol] 26 mmol/L Normal 21-31 [facility] Comment on above: Order Comment: The A ptima SARS-CoV-2 assay is a nucleic acid amplification test intended for the qualitative detection of RNA from SARS-CoV-2 isolated and purified from nasopharyngeal (GREEN MARKETING ANALYST),oropharyngeal (OP), nasal swab, sputum, and bronchoalveolar lavage (BAL) specimens from patients with signs and symptoms of infection who are suspected of COVID-19. Results are for the identification of SARS-CoV-2 RNA. The SARS-CoV-2 RNA is generally detectable during the acute phase of infection. The Aptima SARS-CoV-2 Assay on the [employer] system is intended for use by laboratory personnel specifically instructed and trained in the operation of the [employer] system. The Aptima SARS-CoV-2 assay is [...] information. Performed By: #### 3 1792 #### [facility] [address] [place] [address], [facility] Creatinine [Mass/Vol] 1.24 mg/dL High 0.60-1.20 [facility] Comment on above: Order Comment: The A ptima SARS-CoV-2 assay is a nucleic acid amplification test intended for the qualitative detection of RNA from SARS-CoV-2 isolated and purified from nasopharyngeal (GREEN MARKETING ANALYST),oropharyngeal (OP), nasal swab, sputum, and bronchoalveolar lavage (BAL) specimens from patients with signs and symptoms of infection who are suspected of COVID-19. Results are for the identification of SARS-CoV-2 RNA. The SARS-CoV-2 RNA is generally detectable during the acute phase of infection. The Aptima SARS-CoV-2 Assay on the [employer] system is intended for use by laboratory personnel specifically instructed and trained in the operation of the [employer] system. The Aptima SARS-CoV-2 assay is [...] information. Performed By: #### 3 1792 #### [facility] [address] eGFR- 50 ml/min/1.73sq m Abnormal >60 The [facility] Comment on above: Order Comment: The A ptima SARS-CoV-2 assay is a nucleic acid amplification test intended for the qualitative detection of RNA from SARS-CoV-2 isolated and purified from nasopharyngeal (GREEN MARKETING ANALYST),oropharyngeal (OP), nasal swab, sputum, and bronchoalveolar lavage (BAL) specimens from patients with signs and symptoms of infection who are suspected of COVID-19. Results are for the identification of SARS-CoV-2 RNA. The SARS-CoV-2 RNA is generally detectable during the acute phase of infection. The Aptima SARS-CoV-2 Assay on the [employer] system is intended for use by laboratory personnel specifically instructed and trained in the operation of the [employer] system. The Aptima SARS-CoV-2 assay is [...] years Performed By: #### 3 1792 #### [facility] [address] eGFR- non- 42 ml/min/1.73sq m Abnormal >60 The [facility] Comment on above: Order Comment: The A ptima SARS-CoV-2 assay is a nucleic acid amplification test intended for the qualitative detection of RNA from SARS-CoV-2 isolated and purified from nasopharyngeal (GREEN MARKETING ANALYST),oropharyngeal (OP), nasal swab, sputum, and bronchoalveolar lavage (BAL) specimens from patients with signs and symptoms of infection who are suspected of COVID-19. Results are for the identification of SARS-CoV-2 RNA. The SARS-CoV-2 RNA is generally detectable during the acute phase of infection. The Aptima SARS-CoV-2 Assay on the [employer] system is intended for use by laboratory personnel specifically instructed and trained in the operation of the [employer] system. The Aptima SARS-CoV-2 assay is [...] years Performed By: #### 3 1792 #### [facility] [address] [place], [place] [id number] [place] [address] Glucose [Mass/Vol] 95 mg/dL Normal 70-100 The [facility] Comment on above: Order Comment: The A ptima SARS-CoV-2 assay is a nucleic acid amplification test intended for the qualitative detection of RNA from SARS-CoV-2 isolated and purified from nasopharyngeal (GREEN MARKETING ANALYST),oropharyngeal (OP), nasal swab, sputum, and bronchoalveolar lavage (BAL) specimens from patients with signs and symptoms of infection who are suspected of COVID-19. Results are for the identification of SARS-CoV-2 RNA. The SARS-CoV-2 RNA is generally detectable during the acute phase of infection. The Aptima SARS-CoV-2 Assay on the [employer] system is intended for use by laboratory personnel specifically instructed and trained in the operation of the [employer] system. The Aptima SARS-CoV-2 assay is [...] information. Performed By: #### 3 1792 #### [address] Potassium [Moles/Vol] 4.1 mmol/L Normal 3.5-5.1 [facility] Comment on above: Order Comment: The A ptima SARS-CoV-2 assay is a nucleic acid amplification test intended for the qualitative detection of RNA from SARS-CoV-2 isolated and purified from nasopharyngeal (GREEN MARKETING ANALYST),oropharyngeal (OP), nasal swab, sputum, and bronchoalveolar lavage (BAL) specimens from patients with signs and symptoms of infection who are suspected of COVID-19. Results are for the identification of SARS-CoV-2 RNA. The SARS-CoV-2 RNA is generally detectable during the acute phase of infection. The Aptima SARS-CoV-2 Assay on the [employer] system is intended for use by laboratory personnel specifically instructed and trained in the operation of the [employer] system. The Aptima SARS-CoV-2 assay is [...] information. Performed By: #### 3 1792 #### [facility] [address] [place] [address], [facility] Protein [Mass/Vol] 5.0 g/dL Low 6.0-8.3 The [facility] Comment on above: Order Comment: The A ptima SARS-CoV-2 assay is a nucleic acid amplification test intended for the qualitative detection of RNA from SARS-CoV-2 isolated and purified from nasopharyngeal (GREEN MARKETING ANALYST),oropharyngeal (OP), nasal swab, sputum, and bronchoalveolar lavage (BAL) specimens from patients with signs and symptoms of infection who are suspected of COVID-19. Results are for the identification of SARS-CoV-2 RNA. The SARS-CoV-2 RNA is generally detectable during the acute phase of infection. The Aptima SARS-CoV-2 Assay on the [employer] system is intended for use by laboratory personnel specifically instructed and trained in the operation of the [employer] system. The Aptima SARS-CoV-2 assay is [...] information. Performed By: #### 3 1792 #### [facility] [address] [place] [address], [facility] Sodium [Moles/Vol] 138 mmol/L Normal 136-145 The [facility] Comment on above: Order Comment: The A ptima SARS-CoV-2 assay is a nucleic acid amplification test intended for the qualitative detection of RNA from SARS-CoV-2 isolated and purified from nasopharyngeal (GREEN MARKETING ANALYST),oropharyngeal (OP), nasal swab, sputum, and bronchoalveolar lavage (BAL) specimens from patients with signs and symptoms of infection who are suspected of COVID-19. Results are for the identification of SARS-CoV-2 RNA. The SARS-CoV-2 RNA is generally detectable during the acute phase of infection. The Aptima SARS-CoV-2 Assay on the [employer] system is intended for use by laboratory personnel specifically instructed and trained in the operation of the [employer] system. The Aptima SARS-CoV-2 assay is [...] information. Performed By: #### 3 1792 #### [facility] [address] Urea nitrogen [Mass/Vol] 24 mg/dL Normal 7-25 [facility] Comment on above: Order Comment: The A ptima SARS-CoV-2 assay is a nucleic acid amplification test intended for the qualitative detection of RNA from SARS-CoV-2 isolated and purified from nasopharyngeal (GREEN MARKETING ANALYST),oropharyngeal (OP), nasal swab, sputum, and bronchoalveolar lavage (BAL) specimens from patients with signs and symptoms of infection who are suspected of COVID-19. Results are for the identification of SARS-CoV-2 RNA. The SARS-CoV-2 RNA is generally detectable during the acute phase of infection. The Aptima SARS-CoV-2 Assay on the [employer] system is intended for use by laboratory personnel specifically instructed and trained in the operation of the [employer] system. The Aptima SARS-CoV-2 assay is [...] information. Performed By: #### 3 1792 #### [facility] [address] [place] [address], [facility] HEMOGLOBINon 04-05-2022 Hemoglobin (Bld) [Mass/Vol] 8.9 g/dL Low 12.0-15.0 [facility] Comment on above: Order Comment: No: D o not add to previous draw Performed By: #### 8 [id number] #### [facility] [address] [place] [address], [facility] Hemoglobin (Bld) [Mass/Vol] 10.1 g/dL Low 12.0-15.0 [facility] Comment on above: Order Comment: No: D o not add to previous draw Performed By: #### 8 [id number] #### [facility] [address] [place] [address], [facility] MAGNESIUM BLOODon 04-05-2022 Magnesium [Mass/Vol] 1.6 mg/dL Low 1.9-2.7 [facility] Comment on above: Order Comment: The A ptima SARS-CoV-2 assay is a nucleic acid amplification test intended for the qualitative detection of RNA from SARS-CoV-2 isolated and purified from nasopharyngeal (GREEN MARKETING ANALYST),oropharyngeal (OP), nasal swab, sputum, and bronchoalveolar lavage (BAL) specimens from patients with signs and symptoms of infection who are suspected of COVID-19. Results are for the identification of SARS-CoV-2 RNA. The SARS-CoV-2 RNA is generally detectable during the acute phase of infection. The Aptima SARS-CoV-2 Assay on the [employer] system is intended for use by laboratory personnel specifically instructed and trained in the operation of the [employer] system. The Aptima SARS-CoV-2 assay is [...] information. Performed By: #### 3 1792 #### [facility] [address] [place] [address], [facility] PHOSPHORUS BLOODon Phosphate [Mass/Vol] 3.5 mg/dL Normal 2.5-5.0 [facility] Comment on above: Order Comment: The A ptima SARS-CoV-2 assay is a nucleic acid amplification test intended for the qualitative detection of RNA from SARS-CoV-2 isolated and purified from nasopharyngeal (GREEN MARKETING ANALYST),oropharyngeal (OP), nasal swab, sputum, and bronchoalveolar lavage (BAL) specimens from patients with signs and symptoms of infection who are suspected of COVID-19. Results are for the identification of SARS-CoV-2 RNA. The SARS-CoV-2 RNA is generally detectable during the acute phase of infection. The Aptima SARS-CoV-2 Assay on the [employer] system is intended for use by laboratory personnel specifically instructed and trained in the operation of the [employer] system. The Aptima SARS-CoV-2 assay is [...] information. Performed By: #### 3 1792 #### [facility] [address] [place] [address], [facility] POC GLUCOSE LABon 04-05-2022 Glucose [Mass/Vol] 115 mg/dL High 70-100 [facility] Comment on above: Performed By: #### 5 [id number] #### [facility] [address] [place] [address], [place] Glucose [Mass/Vol] 119 mg/dL High 70-100 [facility] Comment on above: Performed By: #### 8 [id number] #### [facility] [address] [place] [address], [place] Glucose [Mass/Vol] 145 mg/dL High 70-100 [facility] Comment on above: Performed By: #### 8 [id number] #### [facility] [address] [place] [address], [place] Glucose [Mass/Vol] 108 mg/dL High 70-100 [facility] Comment on above: Performed By: #### 8 [id number] #### [facility] [address] [place] [address], [place] Glucose [Mass/Vol] 117 mg/dL High 70-100 The [facility] Comment on above: Performed By: #### 8 [id number] #### [facility] [address] [place], [place] [address] [place] PROTHROMBIN TIMEon 2 INR Coag (PPP) [Relative time] 1.13 {INR} Normal 0.91-1.16 [facility] Comment on above: Order Comment: No: [...] 1995;[id number]. Performed By: #### 8 [id number] #### [facility] [address] [place] [address], [facility] PT Coag (PPP) [Time] 14.5 s Normal 12.3-14.8 [facility] Comment on above: Order Comment: No: D o not add to previous draw Result Comment: ALL RESULTS MUST BE INTERPRETED WITH RESPECT TO BLOOD DRAWING ARTIFACT OR DILUTION ERROR OF ANTICOAGULANT AT THE TIME OF SAMPLING. Performed By: #### 8 [id number] #### [facility] [address] APTTon 04-04-2022 aPTT Coag (Bld) [Time] 31.2 s Normal 25.0-35.0 [facility] Comment on above: Order Comment: [...] PURPOSE. Performed By: #### 8 [id number] #### [facility] [address] ARTERIAL BLOOD GAS WITH ICAo n 04-04-2022 BASE EXCESS 0 mmol/L Normal -2-3 The [facility] Comment on above: Performed By: #### 8 [id number] #### [facility] [address] [address], [facility] NASAL CANNULA Normal The [place] Comment on above: Performed By: #### 8 [id number] #### [facility] [address] [place] [address], [facility] HCO3 (Bld) [Moles/Vol] 26 mmol/L Normal 21-28 [facility] Comment on above: Performed By: #### 8 [id number] #### [facility] [address] IONIZED CALCIUM 1.18 mmol/L Normal 1.13-1.32 The [facility] Comment on above: Performed By: #### 8 [id number] #### [facility] [address] LPM 2.0 LPM Normal [facility] Comment on above: Performed By: #### 8 [id number] #### [facility] [address] Oxygen (Bld) [Partial pressure] 74 mm[Hg] Low 83-108 The [facility] Comment on above: Performed By: #### 8 [id number] #### [facility] [address] Oxygen saturation in Blood 95.4 % Normal 94.0-97.0 [facility] Comment on above: Performed By: #### 8 [id number] #### [facility] [address] PCO2 45 mmHg Normal 35-45 [facility] Comment on above: Performed By: #### 8 [id number] #### [facility] [address] pH (Bld) 7.37 [pH] Normal 7.35-7.45 [facility] Comment on above: Performed By: #### 8 [id number] #### [facility] [address] CBC W/DIFFon 04-04-2022 ABS IMM GRANS 0.7 10*3/uL High 0.0-0.2 The [facility] Comment on above: Order Comment: No: D o not add to previous draw Performed By: #### 8 [id number] #### [facility] [address] [place] [address], [facility] ABS NEUTROPHILS 19.9 10*3/uL High 1.6-7.6 The [facility] Comment on above: Order Comment: No: D o not add to previous draw Performed By: #### 8 [id number] #### [facility] [address] [place] [id number], [facility] ANISO Moderate Normal [facility] Comment on above: Order Comment: No: D o not add to previous draw Performed By: #### 8 [id number] #### [facility] [address] [place] [id number], [facility] Basophils (Bld) [#/Vol] 0.2 10*3/uL Normal 0.0-0.2 [facility] Comment on above: Order Comment: No: D o not add to previous draw Performed By: #### 8 [id number] #### [facility] [address] [place] [address], [facility] Basophils/100 WBC (Bld) 0.7 % Normal 0.0-1.0 [facility] Comment on above: Order Comment: No: D o not add to previous draw Performed By: #### 8 [id number] #### [facility] [address] [place] [id number], [facility] Eosinophils (Bld) [#/Vol] 0.0 10*3/uL Normal 0.0-0.5 [facility] Comment on above: Order Comment: No: D o not add to previous draw Performed By: #### 8 [id number] #### [facility] [address] [place] [id number], [facility] Eosinophils/100 WBC (Bld) 0.1 % Normal 0.0-6.0 [facility] Comment on above: Order Comment: No: D o not add to previous draw Performed By: #### 8 [id number] #### [facility] [address] [place] [address], [facility] Erythrocyte distribution width (RBC) [Ratio] 20.2 % High 11.5-15.0 [facility] Comment on above: Order Comment: No: D o not add to previous draw Performed By: #### 8 [id number] #### [facility] [address] [place] [id number], [facility] Hematocrit (Bld) [Volume fraction] 28.0 % Low 36.0-45.0 [facility] Comment on above: Order Comment: No: D o not add to previous draw Performed By: #### 8 [id number] #### [facility] [address] [place] [address], [facility] Hemoglobin (Bld) [Mass/Vol] 8.8 g/dL Low 12.0-15.0 [facility] Comment on above: Order Comment: No: D o not add to previous draw Performed By: #### 8 [id number] #### [facility] [address] [place] [address], [facility] IMMATURE GRANS 3.0 % High 0.0-1.0 The [facility] Comment on above: Order Comment: No: D o not add to previous draw Performed By: #### 8 [id number] #### [facility] [address] [place] [address], [facility] Lymphocytes (Bld) [#/Vol] 1.1 10*3/uL Low 1.2-4.0 [facility] Comment on above: Order Comment: No: D o not add to previous draw Performed By: #### 8 [id number] #### [facility] [address] [place] [address], [facility] Lymphocytes/100 WBC (Bld) 5.1 % Low 20.0-45.0 [facility] Comment on above: Order Comment: No: D o not add to previous draw Performed By: #### 8 [id number] #### [facility] [address] [place] [address], [facility] MCH (RBC) [Entitic mass] 29.9 pg Normal 27.0-33.0 [facility] Comment on above: Order Comment: No: D o not add to previous draw Performed By: #### 8 [id number] #### [facility] [address] [place] [id number], [facility] MCHC (RBC) [Mass/Vol] 31.4 g/dL Low 32.0-35.0 [facility] Comment on above: Order Comment: No: D o not add to previous draw Performed By: #### 8 [id number] #### [facility] [address] [place] [address], [facility] MCV (RBC) [Entitic vol] 95.2 fL Normal 82.0-98.0 [facility] Comment on above: Order Comment: No: D o not add to previous draw Performed By: #### 8 [id number] #### [facility] [address] [place] [address], [facility] Monocytes (Bld) [#/Vol] 0.4 10*3/uL Normal 0.1-1.0 [facility] Comment on above: Order Comment: No: D o not add to previous draw Performed By: #### 8 [id number] #### [facility] [address] [place] [address], [facility] MONOS 2.0 % Low 5.0-12.0 [facility] Comment on above: Order Comment: No: D o not add to previous draw Performed By: #### 8 [id number] #### [facility] [address] [place] [address], [facility] Neutrophils/100 WBC (Bld) 89.1 % High 40.0-72.0 [facility] Comment on above: Order Comment: No: D o not add to previous draw Performed By: #### 8 [id number] #### [facility] [address] Nucleated RBC/100 WBC (Bld) [Ratio] 0 % Normal 0-0 [facility] Comment on above: Order Comment: No: D o not add to previous draw Performed By: #### 8 [id number] #### [facility] [address] [place] [address], [facility] PLAT CNT 303 10*3/uL Normal 150-400 The [facility] Comment on above: Order Comment: No: D o not add to previous draw Performed By: #### 8 [id number] #### [facility] [address] [place] [address], [facility] POIK Slight Normal [facility] Comment on above: Order Comment: No: D o not add to previous draw Performed By: #### 8 [id number] #### [facility] [address] [place] [address], [facility] POLY Slight Normal [facility] Comment on above: Order Comment: No: D o not add to previous draw Performed By: #### 8 [id number] #### [facility] [address] [place] [address], [facility] RBC (Bld) [#/Vol] 2.94 10*6/uL Low 3.80-5.00 The [place] Comment on above: Order Comment: No: D o not add to previous draw Performed By: #### 8 [id number] #### [facility] [address] [place] [address], [facility] WBC (Bld) [#/Vol] 22.35 10*3/uL High 4.00-10.60 [facility] Comment on above: Order Comment: No: D o not add to previous draw Performed By: #### 8 [id number] #### [facility] [address] [place] [id number], [facility] COMP METABOLIC PANELon 04-04 Albumin [Mass/Vol] 2.4 g/dL Low 3.5-5.7 The [facility] Comment on above: Order Comment: No: D o not add to previous draw Performed By: #### 8 [id number] #### [facility] [address] [place] [address], [facility] ALKALINE PHOSPH 92 IU/L Normal 34-[address] [facility] Comment on above: Order Comment: No: D o not add to previous draw Performed By: #### 8 [id number] #### [facility] [address] [place] [address], [place] ALT [Catalytic activity/Vol] 12 U/L Normal 7-52 [facility] Comment on above: Order Comment: No: D o not add to previous draw Performed By: #### 8 [id number] #### [facility] [address] [place] [address], [place] AST [Catalytic activity/Vol] 10 U/L Low 13-39 [facility] Comment on above: Order Comment: No: D o not add to previous draw Performed By: #### 8 [id number] #### [facility] [address] [place] [address], [place] Bilirubin [Mass/Vol] 1.0 mg/dL Normal 0.3-1.0 [facility] Comment on above: Order Comment: No: D o not add to previous draw Performed By: #### 8 [id number] #### [facility] [facility] [address] [place] [address], [place] Calcium [Mass/Vol] 7.7 mg/dL Low 8.6-10.3 [facility] Comment on above: Order Comment: No: D o not add to previous draw Performed By: #### 8 [id number] #### [facility] [address] [place] [address], [place] Chloride [Moles/Vol] 110 mmol/L High 98-107 [facility] Comment on above: Order Comment: No: D o not add to previous draw Performed By: #### 8 [id number] #### [facility] [address] [place] [address], [place] CO2 [Moles/Vol] 24 mmol/L Normal 21-31 [facility] Comment on above: Order Comment: No: D o not add to previous draw Performed By: #### 8 [id number] #### [facility] [address] [place] [address], [place] Creatinine [Mass/Vol] 1.18 mg/dL Normal 0.60-1.20 [facility] Comment on above: Order Comment: No: D o not add to previous draw Performed By: #### 8 [id number] #### [facility] [address] [place] [address], [facility] eGFR- 53 ml/min/1.73sq m Abnormal >60 [facility] Comment on above: Order Comment: No: D o not add to previous draw Result Comment: Calc ulation may not be valid for patients over 70 years Performed By: #### 8 [id number] #### [facility] [address] [place] [address], [facility] eGFR- non- 44 ml/min/1.73sq m Abnormal >60 [facility] Comment on above: Order Comment: No: D o not add to previous draw Result Comment: Calc ulation may not be valid for patients over 70 years Performed By: #### 8 [id number] #### [facility] [address] [place] [address], [place] Glucose [Mass/Vol] 90 mg/dL Normal 70-100 [facility] Comment on above: Order Comment: No: D o not add to previous draw Performed By: #### 8 [id number] #### [facility] [address] [place] [address], [place] Potassium [Moles/Vol] 4.3 mmol/L Normal 3.5-5.1 [facility] Comment on above: Order Comment: No: D o not add to previous draw Performed By: #### 8 [id number] #### [facility] [address] [place] [address], [facility] Protein [Mass/Vol] 4.8 g/dL Low 6.0-8.3 [facility] Comment on above: Order Comment: No: D o not add to previous draw Performed By: #### 8 [id number] #### [facility] [address] [place] [id number], [facility] Sodium [Moles/Vol] 140 mmol/L Normal 136-145 [facility] Comment on above: Order Comment: No: D o not add to previous draw Performed By: #### 8 [id number] #### [facility] [address] [place] [address], [facility] Urea nitrogen [Mass/Vol] 37 mg/dL High 7-25 [facility] Comment on above: Order Comment: No: D o not add to previous draw Performed By: #### 8 [id number] #### [facility] [address] Endoscopy Reporton 2 Endoscopy Report MR#: [id number] [facility] Pt. Name: María Elena Tafoya Surgery Date: 04/03/2022 Room #: [facility] [id number] Date of : 1940 PROCEDURE NOTE ATTENDING: [...] Olivo M.D. Date Trans: 04/04/2022 04:28 Kate/erik [id number] cc: Bennie Albright M.D. [address], [facility] [place] [address] Normal [facility] HEMOGLOBINon 04-04-2022 Hemoglobin (Bld) [Mass/Vol] 9.4 g/dL Low 12.0-15.0 [facility] Comment on above: Order Comment: No: D o not add to previous draw Performed By: #### 8 [id number] #### [facility] [address] Hemoglobin (Bld) [Mass/Vol] 9.5 g/dL Low 12.0-15.0 [facility] Comment on above: Order Comment: No: D o not add to previous draw Performed By: #### 5 [id number] #### [facility] [address] Hemoglobin (Bld) [Mass/Vol] 8.9 g/dL Low 12.0-15.0 [facility] Comment on above: Order Comment: No: D o not add to previous draw Performed By: #### 8 [id number] #### [facility] [address] [place] [address], [facility] MAGNESIUM BLOODon 04-04-2022 Magnesium [Mass/Vol] 1.6 mg/dL Low 1.9-2.7 [facility] Comment on above: Order Comment: No: D o not add to previous draw Performed By: #### 8 [id number] #### [facility] [address] [place] [address], [facility] PHOSPHORUS BLOODon Phosphate [Mass/Vol] 3.8 mg/dL Normal 2.5-5.0 [facility] Comment on above: Order Comment: No: D o not add to previous draw Performed By: #### 8 [id number] #### [facility] [address] [place] [address], [place] POC GLUCOSE LABon 04-04-2022 Glucose [Mass/Vol] 123 mg/dL High 70-100 [facility] Comment on above: Performed By: #### 5 [id number] #### [facility] [address] [place] [address], [place] Glucose [Mass/Vol] 152 mg/dL High 70-100 [facility] Comment on above: Performed By: #### 8 [id number] ####[facility] [place] [address], [place] Glucose [Mass/Vol] 111 mg/dL High 70-100 [facility] Comment on above: Performed By: #### 8 [id number] #### [facility] [address] [place] [address], [place] Glucose [Mass/Vol] 109 mg/dL High 70-100 [facility] Comment on above: Performed By: #### 8 [id number] #### [facility] [address] [place] [address], [place] Glucose [Mass/Vol] 94 mg/dL Normal 70-100 [facility] Comment on above: Performed By: #### 8 [id number] ####[facility] [place] [address], [place] PROTHROMBIN TIMEon INR Coag (PPP) [Relative time] 1.18 {INR} High 0.91-1.16 [facility] Comment on above: Order Comment: No: [...] 1995;108:231S-246S. Performed By: #### 8 [id number] #### [address] PT Coag (PPP) [Time] 14.9 s High 12.3-14.8 [facility] Comment on above: Order Comment: No: D o not add to previous draw Result Comment: ALL RESULTS MUST BE INTERPRETED WITH RESPECT TO BLOOD DRAWING ARTIFACT OR DILUTION ERROR OF ANTICOAGULANT AT THE TIME OF SAMPLING. Performed By: #### 8 [id number] #### [address] UFH HEPARIN ASSAYon 04-04-20 22 UNFRACTIONATED HEPARIN 0.11 IU/mL Critically low 0.30-0.70 [facility] Comment on above: Result Comment: RESU LTS CHECKED AND CALLED. ACCURATELY READ BACK BY CHAZ LAWLER RN @ [phone] Rivaroxaban and Apixaban will interfere with the anti Xa assay used to monitor UFH and LMWH. Performed By: #### 8 [id number] #### [address] US GALLBLADDERon 04-04-2022 US GALLBLADDER [facility] Department of Radiology [address] [place] [id number] ======== Patient Name: MARÍA ELENA TAFOYA : 1940 Sex: F Age: Race: NA Pt. Location: [id number] Patient Status: I Ordered Date: 04/03/2022 8:05:00 [...] calculi. Electronically signed: Brooke Verduzco. Transcribed by: [email or web address], User Resident: Electronically Signed by: BROOKE VERDUZCO @ 04/04/2022 07:46 AM Normal [facility] Comment on above: Order Comment: Stone s VENOUS BLOOD GASon BASE EXCESS 2 mmol/L Normal [facility] Comment on above: Performed By: #### 8 [id number] #### [facility] [address] [place] [address], [facility] HCO3 (Bld) [Moles/Vol] 27 mmol/L Normal [facility] Comment on above: Performed By: #### 8 [id number] #### [facility] [address] [place] [address], [facility] Oxygen (Bld) [Partial pressure] 72 mm[Hg] Critically high 35-45 [facility] Comment on above: Performed By: #### 8 [id number] #### [facility] [address] [place] [address], [facility] Oxygen saturation in Blood 93.8 % High 65.0-75.0 [facility] Comment on above: Performed By: #### 8 [id number] #### [facility] [address] [place] [address], [facility] PCO2 42 mmHg Normal [facility] Comment on above: Performed By: #### 8 [id number] #### [facility] [address] [place] [address], [facility] pH (Bld) 7.41 [pH] Normal 7.31-7.41 [facility] Comment on above: Performed By: #### 8 [id number] #### [facility] [address] APTTon 04-03-2022 aPTT Coag (Bld) [Time] 32.6 s Normal 25.0-35.0 [facility] Comment on above: Order Comment: Yes: [...] PURPOSE. Performed By: #### 8 [id number] #### [facility] [address] [place] [address], [place] ARTERIAL BLOOD GAS WITH ICAo n 04-03-2022 BASE EXCESS 2 mmol/L Normal -2-3 [facility] Comment on above: Performed By: #### 8 [id number] #### [facility] [address] [place] [address], [place] [employer] [place] Normal [facility] Comment on above: Performed By: #### 8 [id number] #### [facility] [address] [place] [address], [place] HCO3 (Bld) [Moles/Vol] 25 mmol/L Normal 21-28 [facility] Comment on above: Performed By: #### 8 [id number] #### [facility] [address] [place] [address], [place] IONIZED CALCIUM 1.24 mmol/L Normal 1.13-1.32 [facility] Comment on above: Performed By: #### 8 [id number] #### [facility] [address] [place] [address], [place] LPM 4.0 LPM Normal [facility] Comment on above: Performed By: #### 8 [id number] #### [facility] [address] [place] [address], [place] Oxygen (Bld) [Partial pressure] 76 mm[Hg] Low 83-108 [facility] Comment on above: Performed By: #### 8 [id number] #### [facility] [address] [place] [address], [place] Oxygen saturation in Blood 94.0 % Normal 94.0-97.0 [facility] Comment on above: Performed By: #### 8 [id number] #### [facility] [address] [place] [address], [place] PCO2 34 mmHg Low 35-45 [facility] Comment on above: Performed By: #### 8 [id number] #### [facility] [address] [place] [address], [facility] pH (Bld) 7.48 [pH] High 7.35-7.45 [facility] Comment on above: Performed By: #### 8 [id number] #### [facility] [address] [place] [address], [facility] BASIC METABOLIC PANELon 05-1 Calcium [Mass/Vol] 8.5 mg/dL Low 8.6-10.3 [facility] Comment on above: Order Comment: No: D o not add to previous draw Performed By: #### 8 [id number] #### [facility] [address] [place] [address], [place] Chloride [Moles/Vol] 108 mmol/L High 98-107 [facility] Comment on above: Order Comment: No: D o not add to previous draw Performed By: #### 8 [id number] #### [facility] [address] [place] [address], [facility] CO2 [Moles/Vol] 25 mmol/L Normal 21-31 [facility] Comment on above: Order Comment: No: D o not add to previous draw Performed By: #### 8 [id number] #### [facility] [address] [place] [address], [facility] Creatinine [Mass/Vol] 0.96 mg/dL Normal 0.60-1.20 [facility] Comment on above: Order Comment: No: D o not add to previous draw Performed By: #### 8 [id number] #### [facility] [address] [place] [address], [facility] eGFR- non- 56 ml/min/1.73sq m Abnormal >60 [facility] Comment on above: Order Comment: No: D o not add to previous draw Result Comment: Calc ulation may not be valid for patients over 70 years Performed By: #### 8 [id number] #### [facility] [address] [place] [address], [place] GFR/1.73 sq M.predicted among blacks MDRD (S/P/Bld) [Vol rate/Area] mL/min/{1.73_m2} Normal >60 [facility] Comment on above: Order Comment: No: D o not add to previous draw Result Comment: Calc ulation may not be valid for patients over 70 years Performed By: #### 8 [id number] #### [facility] [address] [place] [address], [place] Glucose [Mass/Vol] 122 mg/dL High 70-100 [facility] Comment on above: Order Comment: No: D o not add to previous draw Performed By: #### 8 [id number] #### [facility] [address] [place] [address], [place] Potassium [Moles/Vol] 5.5 mmol/L High 3.5-5.1 [facility] Comment on above: Order Comment: No: D o not add to previous draw Performed By: #### 8 [id number] #### [facility] [address] [place] [address], [place] Sodium [Moles/Vol] 137 mmol/L Normal 136-145 [facility] Comment on above: Order Comment: No: D o not add to previous draw Performed By: #### 8 [id number] #### [facility] [address] [place] [address], [place] Urea nitrogen [Mass/Vol] 30 mg/dL High 7-25 [facility] Comment on above: Order Comment: No: D o not add to previous draw Performed By: #### 8 [id number] #### [facility] [address] [place] [address], [place] BLOOD STOOL GUAIACon 022 BLD STOOL GUAIAC Positive Abnormal NEGATIVE [facility] Comment on above: Order Comment: No: D o not add to previous draw Performed By: #### 2 2706 #### [facility] [address] [place] [address], [facility] CALCIUM IONIZED CBGLon 04-03 IONIZED CALCIUM 1.18 mmol/L Normal 1.12-1.30 [facility] Comment on above: Performed By: #### 8 [id number] #### [facility] [address] CBC COMPLETE BLOOD COUNTon 0 04-03-2022 Erythrocyte distribution width (RBC) [Ratio] 17.9 % High 11.5-15.0 [facility] Comment on above: Order Comment: No: D o not add to previous draw Performed By: #### 5 [id number] #### [facility] [address] [place] [address], [facility] Hematocrit (Bld) [Volume fraction] 34.4 % Low 36.0-45.0 [facility] Comment on above: Order Comment: No: D o not add to previous draw Performed By: #### 5 [id number] #### [facility] [address] [place] [address], [facility] Hemoglobin (Bld) [Mass/Vol] 10.6 g/dL Low 12.0-15.0 [facility] Comment on above: Order Comment: No: D o not add to previous draw Performed By: #### 5 0608 #### [facility] [address] [place] [address], [facility] MCH (RBC) [Entitic mass] 30.3 pg Normal 27.0-33.0 [facility] Comment on above: Order Comment: No: D o not add to previous draw Performed By: #### 5 [id number] #### [facility] [address] [place] [id number], [facility] MCHC (RBC) [Mass/Vol] 30.8 g/dL Low 32.0-35.0 [facility] Comment on above: Order Comment: No: D o not add to previous draw Performed By: #### 5 0608 #### [facility] [address] [place] [address], [facility] MCV (RBC) [Entitic vol] 98.3 fL High 82.0-98.0 [facility] Comment on above: Order Comment: No: D o not add to previous draw Performed By: #### 5 [id number] #### [facility] [address] [place] [address], [facility] Nucleated RBC/100 WBC (Bld) [Ratio] 0 % Normal 0-0 [facility] Comment on above: Order Comment: No: D o not add to previous draw Performed By: #### 5 [id number] #### [facility] [address] [place] [address], [facility] PLAT CNT 396 10*3/uL Normal 150-400 [facility] Comment on above: Order Comment: No: D o not add to previous draw Performed By: #### 5 0608 #### [facility] [address] [facility] [place] [address], [facility] RBC (Bld) [#/Vol] 3.50 10*6/uL Low 3.80-5.00 The [place] Comment on above: Order Comment: No: D o not add to previous draw Performed By: #### 5 [id number] #### [facility] [address] [place] [address], [facility] WBC (Bld) [#/Vol] 34.46 10*3/uL High 4.00-10.60 [facility] Comment on above: Order Comment: No: D o not add to previous draw Performed By: #### 5 0608 #### [facility] [address] [place] [address], [facility] CT BRAIN WO CONTRASTon 04-03 CT BRAIN WO CONTRAST [facility] Department of Radiology [address] [place] [phone] ======== Patient Name: MARÍA ELENA TAFOYA : 1940 Sex: F Age: Race: NA Pt. Location: [id number] Patient Status: I Ordered Date: 04/03/2022 8:30:00 [...] for ischemia, consider MR. Electronically signed: Darrel Gordon. Transcribed by: [email or web address], User Resident: Electronically Signed by: DARREL PENDLETONUCHER @ 04/03/2022 09:21 PM Normal [facility] Comment on above: Order Comment: Bleed , altereed mental status ERCPon 04-03-2022 ERCP [facility] Department of Radiology [address] [place] [id number] ======== Patient Name: MARÍA ELENA TAFOYA : 1940 Sex: F Age: Race: NA Pt. Location: [id number] Patient Status: I Ordered Date: 04/03/2022 8:50:00 [...] details. Electronically signed: Brooke Verduzco. Transcribed by: [email or web address], User Resident: Electronically Signed by: BROOKE VERDUZCO @ 04/03/2022 12:52 PM Normal [facility] Comment on above: Order Comment: Check Stent Position HEMATOCRITon 04-03-2022 Hematocrit (Bld) [Volume fraction] 27.5 % Low 36.0-45.0 [facility] Comment on above: Order Comment: No: D o not add to previous draw Performed By: #### 8 [id number] #### [facility] [address] [place] [address], [facility] Hematocrit (Bld) [Volume fraction] 31.1 % Low 36.0-45.0 [facility] Comment on above: Order Comment: No: D o not add to previous draw Performed By: #### 8 [id number] #### [facility] [address] [place] [id number], [facility] Hematocrit (Bld) [Volume fraction] 32.2 % Low 36.0-45.0 [facility] Comment on above: Order Comment: No: D o not add to previous draw Performed By: #### 8 [id number] #### [facility] [address] [place] [address], [place] HEMOGLOBINon 04-03-2022 Hemoglobin (Bld) [Mass/Vol] 8.8 g/dL Low 12.0-15.0 [facility] Comment on above: Order Comment: No: D o not add to previous draw Performed By: #### 8 [id number] #### [facility] [address] [place] [id number], [place] Hemoglobin (Bld) [Mass/Vol] 9.8 g/dL Low 12.0-15.0 [facility] Comment on above: Order Comment: No: D o not add to previous draw Performed By: #### 8 [id number] #### [facility] [address] [place] [address], [facility] Hemoglobin (Bld) [Mass/Vol] 9.9 g/dL Low 12.0-15.0 [facility] Comment on above: Order Comment: No: D o not add to previous draw Performed By: #### 8 [id number] #### [facility] [address] [place] [id number], [facility] LIPASE BLOODon 04-03-2022 LIPASE 149 Units/L High 11-82 [facility] Comment on above: Order Comment: No: D o not add to previous draw Performed By: #### 8 [id number] #### [facility] [address] [place] [address], [facility] LIVER BATTERYon 04-03-2022 Albumin [Mass/Vol] 2.8 g/dL Low 3.5-5.7 [facility] Comment on above: Order Comment: No: D o not add to previous draw Performed By: #### 8 [id number] #### [facility] [address] [place] [address], [facility] ALKALINE PHOSPH 137 IU/L High 34-104 [facility] Comment on above: Order Comment: No: D o not add to previous draw Performed By: #### 8 [id number] #### [facility] [address] [place] [address], [facility] ALT [Catalytic activity/Vol] 18 U/L Normal 7-52 [facility] Comment on above: Order Comment: No: D o not add to previous draw Performed By: #### 8 [id number] #### [facility] [address] [place] [address], [place] AST [Catalytic activity/Vol] 8 U/L Low 13-39 [facility] Comment on above: Order Comment: No: D o not add to previous draw Performed By: #### 8 [id number] #### [facility] [address] [place] [address], [place] Bilirubin [Mass/Vol] 1.5 mg/dL High 0.3-1.0 [facility] Comment on above: Order Comment: No: D o not add to previous draw Performed By: #### 8 [id number] #### [facility] [address] [place] [address], [facility] Bilirubin.direct [Mass/Vol] 0.6 mg/dL High 0.0-0.2 [facility] Comment on above: Order Comment: No: D o not add to previous draw Performed By: #### 8 [id number] #### [facility] [address] [place] [address], [place] Protein [Mass/Vol] 5.8 g/dL Low 6.0-8.3 [facility] Comment on above: Order Comment: No: D o not add to previous draw Performed By: #### 8 [id number] #### [facility] [address] [place] [address], [facility] MAGNESIUM BLOODon 04-03-2022 Magnesium [Mass/Vol] 2.0 mg/dL Normal 1.9-2.7 [facility] Comment on above: Order Comment: No: D o not add to previous draw Performed By: #### 8 [id number] #### [facility] [address] [place] [address], [place] PHOSPHORUS BLOODon Phosphate [Mass/Vol] 4.2 mg/dL Normal 2.5-5.0 [facility] Comment on above: Order Comment: No: D o not add to previous draw Performed By: #### 8 [id number] #### [facility] [address] [place] [address], [place] POC GLUCOSE LABon 04-03-2022 Glucose [Mass/Vol] 121 mg/dL High 70-100 [facility] Comment on above: Performed By: #### 8 [id number] #### [facility] [address] [place] [address], [facility] Glucose [Mass/Vol] 147 mg/dL High 70-100 [facility] Comment on above: Performed By: #### 8 [id number] #### [facility] [address] [place] [address], [place] Glucose [Mass/Vol] 133 mg/dL High 70-100 [facility] Comment on above: Performed By: #### 3 0313 #### [facility] [address] [address], [facility] PROTHROMBIN TIMEon INR Coag (PPP) [Relative time] 1.23 {INR} High 0.91-1.16 [facility] Comment on above: Order Comment: Yes: [...] 1995;108:231S-246S. Performed By: #### 8 [id number] #### [facility] [address] [place] [address], [facility] PT Coag (PPP) [Time] 15.5 s High 12.3-14.8 [facility] Comment on above: Order Comment: Yes: Add to Previous draw if ablePt is in [place] Result Comment: ALL RESULTS MUST BE INTERPRETED WITH RESPECT TO BLOOD DRAWING ARTIFACT OR DILUTION ERROR OF ANTICOAGULANT AT THE TIME OF SAMPLING. Performed By: #### 8 [id number] #### [facility] [address] [place] [address], [facility] RBC'S 1 UNITon 04-03-2022 CROSSMATCH INTERP 1 COMP Normal The [place] Comment on above: Performed By: #### 8 [id number] #### [facility] [address] [address], [facility] PRODUCT CODE 1 [id number] Normal [facility] Comment on above: Performed By: #### 8 [id number] #### [facility] [facility] [address] [facility] [place] [address], [facility] PRODUCT STATUS 1 RE Normal The [facility] Comment on above: Result Comment: Resu lt changed by IF on 04/07/2022 06:43. The previous value was XM. Performed By: #### [id number] #### [facility] [address] [facility] [place] [address], [facility] UNIT ABO 1 A Normal The [facility] Comment on above: Performed By: #### [id number] #### [facility] [address] [facility] [address], [facility] UN[facility] ID 1 [id number] Normal The [facility] Comment on above: Performed By: #### 8 [id number] #### [facility] [address] [place] [address], [facility] RH 1 Negative Normal [facility] Comment on above: Performed By: #### 8 [id number] #### [facility] [address] [place] [address], [facility] RBC'S 2 UNITSon 04-03-2022 CROSSMATCH INTERP 1 COMP Normal [facility] Comment on above: Performed By: #### 8 [id number] #### [facility] [address] [place] [address], [facility] CROSSMATCH INTERP 2 COMP Normal [facility] Comment on above: Performed By: #### 8 [id number] #### [facility] [address] [place] [address], [facility] PRODUCT CODE 1 [id number] Normal The [facility] Comment on above: Performed By: #### 8 [id number] #### [facility] [address] [place] [address], [facility] PRODUCT CODE 2 [id number] Normal The [facility] Comment on above: Performed By: #### 8 [id number] #### [facility] [address] [place] [address], [facility] PRODUCT STATUS 1 PT Normal The [facility] Comment on above: Result Comment: Resu lt changed by IF on 04/03/2022 10:21. The previous value was XM. Result changed by IF on 04/04/2022 00:30. The previous value was IS. Performed By: #### [id number] #### [facility] [address] [facility] [place] [address], [facility] PRODUCT STATUS 2 PT Normal The [facility] Comment on above: Result Comment: Resu lt changed by IF on 04/03/2022 10:21. The previous value was XM. Result changed by IF on 04/03/2022 11:27. The previous value was IS. Result changed by IF on 04/03/2022 12:23. The previous value was XM. Result changed by IF on 04/04/2022 00:30. The previous value was IS. Performed By: #### [id number] #### [facility] [address] [place] [address], [facility] UN[facility] ABO 1 A Normal [facility] Comment on above: Performed By: #### 8 [id number] #### [facility] [address] [place] [address], [facility] UN[facility] ABO 2 A Normal [facility] Comment on above: Performed By: #### 8 [id number] #### [facility] [address] [place] [address], [facility] UNIT ID 1 [id number] [facility] Comment on above: Performed By: #### 8 [id number] #### [facility] [address] [place] [address], [facility] UNIT ID 2 [id number] Normal The [facility] Comment on above: Performed By: #### 8 [id number] #### [facility] [address] [place] [address], [facility] UN[facility] RH 1 Negative Normal [facility] Comment on above: Performed By: #### 8 [id number] #### [facility] [address] [place] [address], [facility] UN[facility] RH 2 Negative Normal [facility] Comment on above: Performed By: #### 8 [id number] #### [facility] [address] [place] [address], [facility] TYPE AND SCREENon 04-03-2022 ABO INTERPRETATION AB Normal The [facility] Comment on above: Performed By: #### 8 [id number] #### [facility] [address] [place] [address], [facility] RH INTERPRETATION Negative Normal The [facility] Comment on above: Performed By: #### 8 [id number] #### [facility] [address] [place] [address], [facility] UFH HEPARIN ASSAYon 05-17-20 22 UNFRACTIONATED HEPARIN 0.28 IU/mL Low 0.30-0.70 [facility] Comment on above: Result Comment: Dongola roxaban and Apixaban will interfere with the anti Xa assay used to monitor UFH and LMWH. Performed By: #### 8 [id number] #### [facility] [address] VENOUS BLOOD GAS W/COOXon BASE EXCESS -3 mmol/L Normal The [facility] Comment on above: Order Comment: RESUL TS CHECKED AND CALLED. ACCURATELY READ BACK BY AYANNA PHIPPS Performed By: #### 8 [id number] #### [facility] [address] [place] [address], [facility] COHB 2 % Normal [facility] Comment on above: Order Comment: RESUL TS CHECKED AND CALLED. ACCURATELY READ BACK BY AYANNA PHIPPS Performed By: #### 8 [id number] #### [facility] [address] [place] [address], [facility] HCO3 (Bld) [Moles/Vol] 25 mmol/L Normal [facility] Comment on above: Order Comment: RESUL TS CHECKED AND CALLED. ACCURATELY READ BACK BY AYANNA PHIPPS Performed By: #### 8 [id number] #### [facility] [address] [place] [address], [facility] METHB 0.3 % Normal [facility] Comment on above: Order Comment: RESUL TS CHECKED AND CALLED. ACCURATELY READ BACK BY AYANNA PHIPPS Performed By: #### 8 [id number] #### [facility] [address] [place] [address], [facility] Oxygen (Bld) [Partial pressure] 31 mm[Hg] Low 35-45 The [facility] Comment on above: Order Comment: RESUL TS CHECKED AND CALLED. ACCURATELY READ BACK BY AYANNA PHIPPS Performed By: #### 8 [id number] #### [facility] [address] [place] [address], [facility] Oxygen saturation in Blood 38.0 % Low 65.0-75.0 [facility] Comment on above: Order Comment: RESUL TS CHECKED AND CALLED. ACCURATELY READ BACK BY AYANNA PHIPPS Performed By: #### 8 [id number] #### [facility] [address] [facility]. [address] PCO2 53 mmHg Normal [facility] Comment on above: Order Comment: RESUL TS CHECKED AND CALLED. ACCURATELY READ BACK BY AYANNA RN Performed By: #### 8 [id number] #### [facility] [address] [facility]. [address] pH (Bld) 7.28 [pH] Low 7.31-7.41 [facility] Comment on above: Order Comment: RESUL TS CHECKED AND CALLED. ACCURATELY READ BACK BY AYANNA PHIPPS Performed By: #### 8 [id number] #### [facility] [address] THB 9.2 g/dL Normal [facility] Comment on above: Order Comment: RESUL TS CHECKED AND CALLED. ACCURATELY READ BACK BY AYANNA PHIPPS Performed By: #### 8 [id number] #### [facility] [address] BASIC METABOLIC PANELon 05-1 Calcium [Mass/Vol] 8.5 mg/dL Low 8.6-10.3 The [facility] Comment on above: Order Comment: The A ptima SARS-CoV-2 assay is a nucleic acid amplification test intended for the qualitative detection of RNA from SARS-CoV-2 isolated and purified from nasopharyngeal ([employer]ING ANALYST),oropharyngeal (OP), nasal swab, sputum, and bronchoalveolar lavage (BAL) specimens from patients with signs and symptoms of infection who are suspected of COVID-19. Results are for the identification of SARS-CoV-2 RNA. The SARS-CoV-2 RNA is generally detectable during the acute phase of infection. The Aptima SARS-CoV-2 Assay on the [employer] system is intended for use by laboratory personnel specifically instructed and trained in the operation of the [employer] system. The Aptima SARS-CoV-2 assay is [...] information. Performed By: #### 3 [id number] #### [facility] [address] [place] [address], [facility] Chloride [Moles/Vol] 104 mmol/L Normal 98-107 [facility] Comment on above: Order Comment: The A ptima SARS-CoV-2 assay is a nucleic acid amplification test intended for the qualitative detection of RNA from SARS-CoV-2 isolated and purified from nasopharyngeal (GREEN MARKETING ANALYST),oropharyngeal (OP), nasal swab, sputum, and bronchoalveolar lavage (BAL) specimens from patients with signs and symptoms of infection who are suspected of COVID-19. Results are for the identification of SARS-CoV-2 RNA. The SARS-CoV-2 RNA is generally detectable during the acute phase of infection. The Aptima SARS-CoV-2 Assay on the [employer] system is intended for use by laboratory personnel specifically instructed and trained in the operation of the [employer] system. The Aptima SARS-CoV-2 assay is [...] information. Performed By: #### 3 [id number] #### [facility] [address] [place] [address], [facility] CO2 [Moles/Vol] 23 mmol/L Normal 21-[address] [facility] Comment on above: Order Comment: The A ptima SARS-CoV-2 assay is a nucleic acid amplification test intended for the qualitative detection of RNA from SARS-CoV-2 isolated and purified from nasopharyngeal (GREEN MARKETING ANALYST),oropharyngeal (OP), nasal swab, sputum, and bronchoalveolar lavage (BAL) specimens from patients with signs and symptoms of infection who are suspected of COVID-19. Results are for the identification of SARS-CoV-2 RNA. The SARS-CoV-2 RNA is generally detectable during the acute phase of infection. The Aptima SARS-CoV-2 Assay on the [employer] system is intended for use by laboratory personnel specifically instructed and trained in the operation of the [employer] system. The Aptima SARS-CoV-2 assay is [...] information. Performed By: #### 3 [id number] #### [address] Creatinine [Mass/Vol] 1.00 mg/dL Normal 0.60-1.20 [facility] Comment on above: Order Comment: The A ptima SARS-CoV-2 assay is a nucleic acid amplification test intended for the qualitative detection of RNA from SARS-CoV-2 isolated and purified from nasopharyngeal ([employer]EN MARKETING ANALYST),oropharyngeal (OP), nasal swab, sputum, and bronchoalveolar lavage (BAL) specimens from patients with signs and symptoms of infection who are suspected of COVID-19. Results are for the identification of SARS-CoV-2 RNA. The SARS-CoV-2 RNA is generally detectable during the acute phase of infection. The Aptima SARS-CoV-2 Assay on the [employer] system is intended for use by laboratory personnel specifically instructed and trained in the operation of the [employer] system. The Aptima SARS-CoV-2 assay is [...] information. Performed By: #### 3 [id number] #### [facility] [address] [address], [facility] eGFR- non- 53 ml/min/1.73sq m Abnormal >60 The [facility] Comment on above: Order Comment: The A ptima SARS-CoV-2 assay is a nucleic acid amplification test intended for the qualitative detection of RNA from SARS-CoV-2 isolated and purified from nasopharyngeal (GREEN MARKETING ANALYST),oropharyngeal (OP), nasal swab, sputum, and bronchoalveolar lavage (BAL) specimens from patients with signs and symptoms of infection who are suspected of COVID-19. Results are for the identification of SARS-CoV-2 RNA. The SARS-CoV-2 RNA is generally detectable during the acute phase of infection. The Aptima SARS-CoV-2 Assay on the [employer] and [employer] system is intended for use by laboratory personnel specifically instructed and trained in the operation of the [employer] system. The Aptima SARS-CoV-2 assay is [...] years Performed By: #### 3 [id number] #### [facility] [address] [place] [address], [facility] GFR/1.73 sq M.predicted among blacks MDRD (S/P/Bld) [Vol rate/Area] mL/min/{1.73_m2} Normal >60 The [facility] Comment on above: Order Comment: The A ptima SARS-CoV-2 assay is a nucleic acid amplification test intended for the qualitative detection of RNA from SARS-CoV-2 isolated and purified from nasopharyngeal (GRE[employer] MARKETING ANALYST),oropharyngeal (OP), nasal swab, sputum, and bronchoalveolar lavage (BAL) specimens from patients with signs and symptoms of infection who are suspected of COVID-19. Results are for the identification of SARS-CoV-2 RNA. The SARS-CoV-2 RNA is generally detectable during the acute phase of infection. The Aptima SARS-CoV-2 Assay on the [employer] system is intended for use by laboratory personnel specifically instructed and trained in the operation of the [employer] system. The Aptima SARS-CoV-2 assay is [...] years Performed By: #### 3 [id number] #### [facility] [address] [facility]. [address] Glucose [Mass/Vol] 87 mg/dL Normal 70-100 [facility] Comment on above: Order Comment: The A ptima SARS-CoV-2 assay is a nucleic acid amplification test intended for the qualitative detection of RNA from SARS-CoV-2 isolated and purified from nasopharyngeal (GREEN MARKETING ANALYST),oropharyngeal (OP), nasal swab, sputum, and bronchoalveolar lavage (BAL) specimens from patients with signs and symptoms of infection who are suspected of COVID-19. Results are for the identification of SARS-CoV-2 RNA. The SARS-CoV-2 RNA is generally detectable during the acute phase of infection. The Aptima SARS-CoV-2 Assay on the [employer] system is intended for use by laboratory personnel specifically instructed and trained in the operation of the [employer] system. The Aptima SARS-CoV-2 assay is [...] information. Performed By: #### 3 [id number] #### [facility] [address] [place] [address], [facility] Potassium [Moles/Vol] 4.1 mmol/L Normal 3.5-5.1 [facility] Comment on above: Order Comment: The A ptima SARS-CoV-2 assay is a nucleic acid amplification test intended for the qualitative detection of RNA from SARS-CoV-2 isolated and purified from nasopharyngeal (GREEN MARKETING ANALYST),oropharyngeal (OP), nasal swab, sputum, and bronchoalveolar lavage (BAL) specimens from patients with signs and symptoms of infection who are suspected of COVID-19. Results are for the identification of SARS-CoV-2 RNA. The SARS-CoV-2 RNA is generally detectable during the acute phase of infection. The Aptima SARS-CoV-2 Assay on the [employer] system is intended for use by laboratory personnel specifically instructed and trained in the operation of the [employer] system. The Aptima SARS-CoV-2 assay is [...] information. Performed By: #### 3 [id number] #### [facility] [address] [place] [address], [facility] Sodium [Moles/Vol] 135 mmol/L Low 136-145 [facility] Comment on above: Order Comment: The A ptima SARS-CoV-2 assay is a nucleic acid amplification test intended for the qualitative detection of RNA from SARS-CoV-2 isolated and purified from nasopharyngeal (GREEN MARKETING ANALYST),oropharyngeal (OP), nasal swab, sputum, and bronchoalveolar lavage (BAL) specimens from patients with signs and symptoms of infection who are suspected of COVID-19. Results are for the identification of SARS-CoV-2 RNA. The SARS-CoV-2 RNA is generally detectable during the acute phase of infection. The Aptima SARS-CoV-2 Assay on the [employer] system is intended for use by laboratory personnel specifically instructed and trained in the operation of the [employer] system. The Aptima SARS-CoV-2 assay is [...] information. Performed By: #### 3 1792 #### [address] Urea nitrogen [Mass/Vol] 17 mg/dL Normal 7-25 [facility] Comment on above: Order Comment: The A ptima SARS-CoV-2 assay is a nucleic acid amplification test intended for the qualitative detection of RNA from SARS-CoV-2 isolated and purified from nasopharyngeal (GREEN MARKETING ANALYST),oropharyngeal (OP), nasal swab, sputum, and bronchoalveolar lavage (BAL) specimens from patients with signs and symptoms of infection who are suspected of COVID-19. Results are for the identification of SARS-CoV-2 RNA. The SARS-CoV-2 RNA is generally detectable during the acute phase of infection. The Aptima SARS-CoV-2 Assay on the [employer] system is intended for use by laboratory personnel specifically instructed and trained in the operation of the [employer] system. The Aptima SARS-CoV-2 assay is [...] information. Performed By: #### 3 [id number] #### [facility] [address] [facility] [place] [address], [facility] CALCIUM IONIZED CBGLon 04-02 IONIZED CALCIUM 1.15 mmol/L Normal 1.12-1.30 The [facility] Comment on above: Performed By: #### 8 [id number] #### [facility] [address] [facility] [place] [address], [facility] CBC W/DIFFon 04-02-2022 ABS IMM GRANS 0.5 10*3/uL High 0.0-0.2 The [facility] Comment on above: Order Comment: No: D o not add to previous draw Performed By: #### 8 [id number] #### [facility] [address] [facility] [place] [address], [facility] ABS NEUTROPHILS 27.8 10*3/uL High 1.6-7.6 The [facility] Comment on above: Order Comment: No: D o not add to previous draw Performed By: #### 8 [id number] #### [facility] [address] [place] [address], [facility] Basophils (Bld) [#/Vol] 0.2 10*3/uL Normal 0.0-0.2 [facility] Comment on above: Order Comment: No: D o not add to previous draw Performed By: #### 8 [id number] #### [facility] [address] [facility] [place] [address], [facility] Basophils/100 WBC (Bld) 0.7 % Normal 0.0-1.0 [facility] Comment on above: Order Comment: No: D o not add to previous draw Performed By: #### 8 [id number] #### [facility] [address] [facility]. [address] Eosinophils (Bld) [#/Vol] 0.0 10*3/uL Normal 0.0-0.5 [facility] Comment on above: Order Comment: No: D o not add to previous draw Performed By: #### 8 [id number] #### [facility] [address] [place] [address], [facility] Eosinophils/100 WBC (Bld) 0.1 % Normal 0.0-6.0 [facility] Comment on above: Order Comment: No: D o not add to previous draw Performed By: #### 8 [id number] #### [facility] [address] [facility]. [address] Erythrocyte distribution width (RBC) [Ratio] 17.5 % High 11.5-15.0 [facility] Comment on above: Order Comment: No: D o not add to previous draw Performed By: #### 8 [id number] #### [facility] [address] Hematocrit (Bld) [Volume fraction] 39.1 % Normal 36.0-45.0 [facility] Comment on above: Order Comment: No: D o not add to previous draw Performed By: #### 8 [id number] #### [facility] [address] [place] [address], [facility] Hemoglobin (Bld) [Mass/Vol] 12.1 g/dL Normal 12.0-15.0 [facility] Comment on above: Order Comment: No: D o not add to previous draw Performed By: #### 8 [id number] #### [facility] [address] [facility] [place] [address], [facility] IMMATURE GRANS 1.8 % High 0.0-1.0 The [facility] Comment on above: Order Comment: No: D o not add to previous draw Performed By: #### 8 [id number] #### [facility] [address] Lymphocytes (Bld) [#/Vol] 1.1 10*3/uL Low 1.2-4.0 [facility] Comment on above: Order Comment: No: D o not add to previous draw Performed By: #### 8 [id number] #### [facility] [address] [place] [address], [facility] Lymphocytes/100 WBC (Bld) 3.5 % Low 20.0-45.0 [facility] Comment on above: Order Comment: No: D o not add to previous draw Performed By: #### 8 [id number] #### [facility] [address] [place] [address], [facility] MCH (RBC) [Entitic mass] 30.1 pg Normal 27.0-33.0 [facility] Comment on above: Order Comment: No: D o not add to previous draw Performed By: #### 8 [id number] #### [facility] [address] [place] [address], [facility] MCHC (RBC) [Mass/Vol] 30.9 g/dL Low 32.0-35.0 [facility] Comment on above: Order Comment: No: D o not add to previous draw Performed By: #### 8 [id number] #### [facility] [address] [place] [address], [facility] MCV (RBC) [Entitic vol] 97.3 fL Normal 82.0-98.0 [facility] Comment on above: Order Comment: No: D o not add to previous draw Performed By: #### 8 [id number] #### [facility] [address] [place] [address], [facility] Monocytes (Bld) [#/Vol] 0.6 10*3/uL Normal 0.1-1.0 [facility] Comment on above: Order Comment: No: D o not add to previous draw Performed By: #### 8 [id number] #### [facility] [address] [place] [id number], [facility] MONOS 1.8 % Low 5.0-12.0 [facility] Comment on above: Order Comment: No: D o not add to previous draw Performed By: #### 8 [id number] #### [facility] [address] [place] [address], [facility] Neutrophils/100 WBC (Bld) 92.1 % High 40.0-72.0 [facility] Comment on above: Order Comment: No: D o not add to previous draw Performed By: #### 8 [id number] #### [facility] [address] [place] [id number], [facility] Nucleated RBC/100 WBC (Bld) [Ratio] 0 % Normal 0-0 [facility] Comment on above: Order Comment: No: D o not add to previous draw Performed By: #### 8 [id number] #### [facility] [address] [place] [address], [place] PLAT CNT 370 10*3/uL Normal 150-400 The [facility] Comment on above: Order Comment: No: D o not add to previous draw Performed By: #### 8 [id number] #### [facility] [address] [place] [id number], [facility] RBC (Bld) [#/Vol] 4.02 10*6/uL Normal 3.80-5.00 The [place] Comment on above: Order Comment: No: D o not add to previous draw Performed By: #### 8 [id number] #### [facility] [address] [place] [address], [place] WBC (Bld) [#/Vol] 30.18 10*3/uL High 4.00-10.60 [facility] Comment on above: Order Comment: No: D o not add to previous draw Performed By: #### 8 [id number] #### [facility] [address] [place] [address], [place] ERCPon 04-02-2022 ERCP [facility] Department of Radiology [address] [place] [address] ======== Patient Name: MARÍA ELENA TAFOYA : 1940 Sex: F Age: Race: NA Pt. Location: [id number] Patient Status: I Ordered Date: 04/02/2022 3:40:00 [...] details. Electronically signed: Brooke Verduzco. Transcribed by: [email or web address], User Resident: Electronically Signed by: BROOKE VERDUZCO @ 04/03/2022 09:48 AM Normal [facility] Comment on above: Order Comment: Check Stent Position Endoscopy Reporton Endoscopy Report MR#: [id number] [facility] Pt. Name: María Elena Tafoya Surgery Date: 04/02/2022 Room #: 5AB [id number] Date of : 1940 PROCEDURE NOTE ATTENDING: Elizabeth Olivo M.D. AIR QUALITY TECHNICIAN: Felipe Gallo MD. PROCEDURE: ERCP with biliary [...] Gallo MD Date Trans: 04/02/2022 07:10 P/mmo [id number] cc: Bennie Albright M.D. [address] [facility] [id number] Normal [facility] LIVER BATTERYon 04-02-2022 Albumin [Mass/Vol] 3.0 g/dL Low 3.5-5.7 [facility] Comment on above: Order Comment: The A ptima SARS-CoV-2 assay is a nucleic acid amplification test intended for the qualitative detection of RNA from SARS-CoV-2 isolated and purified from nasopharyngeal (GREEN MARKETING ANALYST),oropharyngeal (OP), nasal swab, sputum, and bronchoalveolar lavage (BAL) specimens from patients with signs and symptoms of infection who are suspected of COVID-19. Results are for the identification of SARS-CoV-2 RNA. The SARS-CoV-2 RNA is generally detectable during the acute phase of infection. The Aptima SARS-CoV-2 Assay on the [employer] system is intended for use by laboratory personnel specifically instructed and trained in the operation of the [employer] Fusion system. The Aptima SARS-CoV-2 assay is [...] information. Performed By: #### 3 [id number] #### [facility] [address] ALKALINE PHOSPH 174 IU/L High 34-104 [facility] Comment on above: Order Comment: The A ptima SARS-CoV-2 assay is a nucleic acid amplification test intended for the qualitative detection of RNA from SARS-CoV-2 isolated and purified from nasopharyngeal (GREEN MARKETING ANALYST),oropharyngeal (OP), nasal swab, sputum, and bronchoalveolar lavage (BAL) specimens from patients with signs and symptoms of infection who are suspected of COVID-19. Results are for the identification of SARS-CoV-2 RNA. The SARS-CoV-2 RNA is generally detectable during the acute phase of infection. The Aptima SARS-CoV-2 Assay on the [employer] Fusion system is intended for use by laboratory personnel specifically instructed and trained in the operation of the [employer] Fusion system. The Aptima SARS-CoV-2 assay is [...] information. Performed By: #### 3 [id number] #### [facility] [address] ALT [Catalytic activity/Vol] 21 U/L Normal 7-52 [facility] Comment on above: Order Comment: The A ptima SARS-CoV-2 assay is a nucleic acid amplification test intended for the qualitative detection of RNA from SARS-CoV-2 isolated and purified from nasopharyngeal (GREEN MARKETING ANALYST),oropharyngeal (OP), nasal swab, sputum, and bronchoalveolar lavage (BAL) specimens from patients with signs and symptoms of infection who are suspected of COVID-19. Results are for the identification of SARS-CoV-2 RNA. The SARS-CoV-2 RNA is generally detectable during the acute phase of infection. The Aptima SARS-CoV-2 Assay on the [employer] system is intended for use by laboratory personnel specifically instructed and trained in the operation of the [employer] system. The Aptima SARS-CoV-2 assay is [...] information. Performed By: #### 3 [id number] #### [facility] [address] AST [Catalytic activity/Vol] 9 U/L Low 13-39 [facility] Comment on above: Order Comment: The A ptima SARS-CoV-2 assay is a nucleic acid amplification test intended for the qualitative detection of RNA from SARS-CoV-2 isolated and purified from nasopharyngeal (GREEN MARKETING ANALYST),oropharyngeal (OP), nasal swab, sputum, and bronchoalveolar lavage (BAL) specimens from patients with signs and symptoms of infection who are suspected of COVID-19. Results are for the identification of SARS-CoV-2 RNA. The SARS-CoV-2 RNA is generally detectable during the acute phase of infection. The Aptima SARS-CoV-2 Assay on the [employer] system is intended for use by laboratory personnel specifically instructed and trained in the operation of the [employer] system. The Aptima SARS-CoV-2 assay is [...] information. Performed By: #### 3 1792 #### [facility] 3000 [facility] [place], [place] [id number] [place] [address] Bilirubin [Mass/Vol] 1.9 mg/dL High 0.3-1.0 [facility] Comment on above: Order Comment: The A ptima SARS-CoV-2 assay is a nucleic acid amplification test intended for the qualitative detection of RNA from SARS-CoV-2 isolated and purified from nasopharyngeal (GREEN MARKETING ANALYST),oropharyngeal (OP), nasal swab, sputum, and bronchoalveolar lavage (BAL) specimens from patients with signs and symptoms of infection who are suspected of COVID-19. Results are for the identification of SARS-CoV-2 RNA. The SARS-CoV-2 RNA is generally detectable during the acute phase of infection. The Aptima SARS-CoV-2 Assay on the [employer] system is intended for use by laboratory personnel specifically instructed and trained in the operation of the [employer] Fusion system. The Aptima SARS-CoV-2 assay is [...] information. Performed By: #### 3 1792 #### [facility] [address] Bilirubin.direct [Mass/Vol] 0.8 mg/dL High 0.0-0.2 [facility] Comment on above: Order Comment: The A ptima SARS-CoV-2 assay is a nucleic acid amplification test intended for the qualitative detection of RNA from SARS-CoV-2 isolated and purified from nasopharyngeal (GREEN MARKETING ANALYST),oropharyngeal (OP), nasal swab, sputum, and bronchoalveolar lavage (BAL) specimens from patients with signs and symptoms of infection who are suspected of COVID-19. Results are for the identification of SARS-CoV-2 RNA. The SARS-CoV-2 RNA is generally detectable during the acute phase of infection. The Aptima SARS-CoV-2 Assay on the [employer] system is intended for use by laboratory personnel specifically instructed and trained in the operation of the [employer] system. The Aptima SARS-CoV-2 assay is [...] information. Performed By: #### 3 [id number] #### [facility] [address] [employer] Protein [Mass/Vol] 6.1 g/dL Normal 6.0-8.3 [facility] Comment on above: Order Comment: The A ptima SARS-CoV-2 assay is a nucleic acid amplification test intended for the qualitative detection of RNA from SARS-CoV-2 isolated and purified from nasopharyngeal (GREEN MARKETING ANALYST),oropharyngeal (OP), nasal swab, sputum, and bronchoalveolar lavage (BAL) specimens from patients with signs and symptoms of infection who are suspected of COVID-19. Results are for the identification of SARS-CoV-2 RNA. The SARS-CoV-2 RNA is generally detectable during the acute phase of infection. The Aptima SARS-CoV-2 Assay on the [employer] system is intended for use by laboratory personnel specifically instructed and trained in the operation of the [employer] system. The Aptima SARS-CoV-2 assay is [...] information. Performed By: #### 3 1792 #### [facility] [address] [place] [address], [place] MAGNESIUM BLOODon 04-02-2022 Magnesium [Mass/Vol] 1.3 mg/dL Low 1.9-2.7 [facility] Comment on above: Order Comment: The A ptima SARS-CoV-2 assay is a nucleic acid amplification test intended for the qualitative detection of RNA from SARS-CoV-2 isolated and purified from nasopharyngeal (GREEN MARKETING ANALYST),oropharyngeal (OP), nasal swab, sputum, and bronchoalveolar lavage (BAL) specimens from patients with signs and symptoms of infection who are suspected of COVID-19. Results are for the identification of SARS-CoV-2 RNA. The SARS-CoV-2 RNA is generally detectable during the acute phase of infection. The Aptima SARS-CoV-2 Assay on the [employer] Fusion system is intended for use by laboratory personnel specifically instructed and trained in the operation of the [employer] system. The Aptima SARS-CoV-2 assay is [...] information. Performed By: #### 3 1792 #### [facility] [address] PHOSPHORUS BLOODon Phosphate [Mass/Vol] 2.9 mg/dL Normal 2.5-5.0 [facility] Comment on above: Order Comment: The A ptima SARS-CoV-2 assay is a nucleic acid amplification test intended for the qualitative detection of RNA from SARS-CoV-2 isolated and purified from nasopharyngeal (GREEN MARKETING ANALYST),oropharyngeal (OP), nasal swab, sputum, and bronchoalveolar lavage (BAL) specimens from patients with signs and symptoms of infection who are suspected of COVID-19. Results are for the identification of SARS-CoV-2 RNA. The SARS-CoV-2 RNA is generally detectable during the acute phase of infection. The Aptima SARS-CoV-2 Assay on the [employer] system is intended for use by laboratory personnel specifically instructed and trained in the operation of the [employer] system. The Aptima SARS-CoV-2 assay is [...] information. Performed By: #### 3 [id number] #### [facility] 3000 [facility] [place] [address], [facility] POC GLUCOSE LABon 04-02-2022 Glucose [Mass/Vol] 126 mg/dL High 70-100 [facility] Comment on above: Performed By: #### 8 [id number] #### [facility] [address] [place] [address], [facility] Glucose [Mass/Vol] 102 mg/dL High 70-100 [facility] Comment on above: Performed By: #### 8 [id number] ####[facility]3000 [facility] [place] [address], [facility] Glucose [Mass/Vol] 123 mg/dL High 70-100 [facility] Comment on above: Performed By: #### 8 [id number] #### [facility] [address] [place] [address], [facility] Glucose [Mass/Vol] 96 mg/dL Normal 70-100 [facility] Comment on above: Performed By: #### 8 [id number] #### [facility] [address] [place] [address], [facility] P[facility] SARS COV2 IDon 2 SARS-CoV-2 (COVID-19) RNA MATTHEW+probe Ql (Unsp spec) Negative Normal NEGATIVE [facility] Comment on above: Result Comment: ID [...] Accreditation. Performed By: #### 3 1921 #### [facility] [address] PROTHROMBIN TIMEon 2 INR Coag (PPP) [Relative time] 1.21 {INR} High 0.91-1.16 [facility] Comment on above: Order Comment: No: [...] RANGE. CHEST 1995;108:231S-246S. Performed By: #### 8 2489 #### [facility] 3000 [facility]. [address] PT Coag (PPP) [Time] 15.3 s High 12.3-14.8 [facility] Comment on above: Order Comment: No: D o not add to previous draw Result Comment: ALL RESULTS MUST BE INTERPRETED WITH RESPECT TO BLOOD DRAWING ARTIFACT OR DILUTION ERROR OF ANTICOAGULANT AT THE TIME OF SAMPLING. Performed By: #### 8 [id number] #### [facility] 3000 [facility]. [address] UFH HEPARIN ASSAYon 04-02-20 22 UNFRACTIONATED HEPARIN 0.96 IU/mL Critically high 0.30-0.70 [facility] Comment on above: Result Comment: Resu lt checked and called. Accurately read back by Eyal Griffin RN at 0543 Rivaroxaban and Apixaban will interfere with the anti Xa assay used to monitor UFH and LMWH. Performed By: #### 8 [id number] #### [facility] [address] *SARS-CoV-2 COVID-19on 04-01 SARS-CoV-2 (COVID-19) RNA MATTHEW+probe Ql (Unsp spec) Not detected Normal Not Detected [facility] Comment on above: Order Comment: The A ptima SARS-CoV-2 assay is a nucleic acid amplification test intended for the qualitative detection of RNA from SARS-CoV-2 isolated and purified from nasopharyngeal (GREEN MARKETING ANALYST),oropharyngeal (OP), nasal swab, sputum, and bronchoalveolar lavage (BAL) specimens from patients with signs and symptoms of infection who are suspected of COVID-19. Results are for the identification of SARS-CoV-2 RNA. The SARS-CoV-2 RNA is generally detectable during the acute phase of infection. The Aptima SARS-CoV-2 Assay on the [employer] system is intended for use by laboratory personnel specifically instructed and trained in the operation of the [employer] system. The Aptima SARS-CoV-2 assay is [...] information. Performed By: #### 3 [id number] #### [facility] 3000 [facility]. [address] AMMONIAon 04-01-2022 Ammonia (P) [Mass/Vol] ug/dL Critically low 11-32 [facility] Comment on above: Performed By: #### A MM ####[facility] [address] [place] [id number] Barragan APTTon 04-01-2022 aPTT Coag (Bld) [Time] 35.4 s High 25.0-35.0 [facility] Comment on above: Order Comment: No: [...] PURPOSE. Performed By: #### 8 [id number] #### [facility] 3000 [facility]. [address] CBC AUTO DIFFon 04-01-2022 BASO # 0.2 103/ul Critically high 0.0-0.1 The [facility] Comment on above: Performed By: #### C BC ####[facility] [address] [place] [id number] Barragan Basophils/100 WBC (Bld) 0.6 % Normal 0.2-2.0 The [facility] Comment on above: Performed By: #### C BC ####[facility] [address] [place], [place] [address]LrLydia Barragan EO # 0.0 103/ul Normal 0.0-0.7 The [facility] Comment on above: Performed By: #### C BC ####[facility] [address] [place] [address]Dr. Bhavani Barragan Eosinophils/100 WBC (Bld) 0.1 % Critically low 0.9-7.0 The [facility] Comment on above: Performed By: #### C BC ####[facility] [address] [place] [address]Dr. Bhavani Barragan Erythrocyte distribution width (RBC) [Ratio] 17.8 % Critically high 11.0-15.0 [facility] Comment on above: Performed By: #### C BC ####[facility] [address] [place] [address]Dr. Bhavani Barragan Hematocrit (Bld) [Volume fraction] 39.0 % Normal 36.0-48.0 [facility] Comment on above: Performed By: #### C BC ####[facility] [address] [place], [place] [address]Dr. Bhavani Barragan Hemoglobin (Bld) [Mass/Vol] 11.9 g/dL Critically low 12.0-16.0 [facility] Comment on above: Performed By: #### C BC ####[facility] [address] [place], [place] [address]Dr. Bhavani Barragan IG # 0.74 10e3/ul Critically high 0.00-0.03 [facility] Comment on above: Performed By: #### C BC ####[facility] [address] [place], [place] [address]Dr. Bhavani Barragan IG % 2.2 % Critically high 0.0-0.5 The [facility] Comment on above: Performed By: #### C BC ####[facility] [address] [place], [place] [address]DrLydia Championroxi [place] LYMPH # 0.9 103/ul Critically low 1.2-3.8 The [facility] Comment on above: Performed By: #### C BC ####[facility] [address] [place], [place] [address]Dr. Bhavani [place] Lymphocytes/100 WBC (Bld) 2.7 % Critically low 20.5-60.0 [facility] Comment on above: Performed By: #### C BC ####[facility] [address] [place] [address]DrLydia Barragan MANUAL DIFF REQ NO Normal [facility] Comment on above: Performed By: #### C BC ####[facility] [address] [place] [address]Dr. Bhavani Barragan MCH (RBC) [Entitic mass] 29.8 pg Normal 26.7-34.0 [facility] Comment on above: Performed By: #### C BC ####[facility] [address] [place], [place] [address]Dr. Bhavani Barragan MCHC (RBC) [Mass/Vol] 30.5 g/dL Normal 29.9-35.2 The [facility] Comment on above: Performed By: #### C BC ####[facility] [address] [place], [place] [address]DrLydia Barragan MCV (RBC) [Entitic vol] 97.5 fL Normal 81.0-99.0 The [facility] Comment on above: Performed By: #### C BC ####[facility] [address] [place], [place] [address]DrLydia Barragan MONO # 0.6 103/ul Normal 0.3-0.8 [facility] Comment on above: Performed By: #### C BC ####[facility] [address] [place], [place] [address]DrLydia Barragan Monocytes/100 WBC (Bld) 1.7 % Normal 1.7-12.0 The [facility] Comment on above: Performed By: #### C BC ####[facility] [address] [place], [place] [address]DrLydia Barragan NEUT # 30.7 103/ul Critically high 1.4-6.5 The [facility] Comment on above: Performed By: #### C BC ####[facility] [address] [place], [place] [address]DrLydia Barragan Neutrophils/100 WBC (Bld) 92.7 % Critically high 43.0-75.0 [facility] Comment on above: Performed By: #### C BC ####[facility] [address] [place] [address]Dr. Bhavani Barragan Platelet mean volume (Bld) [Entitic vol] 9.8 fL Normal 9.5-13.5 The [facility] Comment on above: Performed By: #### C BC ####[facility] [address] [place] [address]Dr. Bhavani Barragan PLT 372 103/ul Normal 150-450 The [facility] Comment on above: Performed By: #### C BC ####[facility] [address] [place] [address]Dr. Bhavani Barragan RBC 4.00 106/ul Critically low 4.20-5.40 The [facility] Comment on above: Performed By: #### C BC ####[facility] [address] [place] [address]Dr. Bhavani Barragan WBC 33.2 103/ul Critically high 4.0-11.0 The [facility] Comment on above: Performed By: #### C BC ####[facility] [address] [place] [address]Dr. Bhavani Barragan CBC W/DIFFon 04-01-2022 ABS IMM GRANS 0.7 10*3/uL High 0.0-0.2 The [facility] Comment on above: Order Comment: No: D o not add to previous draw Performed By: #### 8 [id number] #### [facility] [address] [place] [address], [facility] ABS NEUTROPHILS 30.0 10*3/uL High 1.6-7.6 The [facility] Comment on above: Order Comment: No: D o not add to previous draw Performed By: #### 8 [id number] #### [facility] [address] [place] [address], [place] Basophils (Bld) [#/Vol] 0.2 10*3/uL Normal 0.0-0.2 [facility] Comment on above: Order Comment: No: D o not add to previous draw Performed By: #### 8 5499 #### [facility] [address] [place] [address], [facility] Basophils/100 WBC (Bld) 0.5 % Normal 0.0-1.0 [facility] Comment on above: Order Comment: No: D o not add to previous draw Performed By: #### 8 [id number] #### [facility] [address] [place] [id number], [facility] Eosinophils (Bld) [#/Vol] 0.0 10*3/uL Normal 0.0-0.5 [facility] Comment on above: Order Comment: No: D o not add to previous draw Performed By: #### 8 [id number] #### [facility] [address] [place] [id number], [facility] Eosinophils/100 WBC (Bld) 0.1 % Normal 0.0-6.0 [facility] Comment on above: Order Comment: No: D o not add to previous draw Performed By: #### 8 [id number] #### [facility] [address] [facility] [place] [address], [facility] Erythrocyte distribution width (RBC) [Ratio] 18.3 % High 11.5-15.0 [facility] Comment on above: Order Comment: No: D o not add to previous draw Performed By: #### 8 [id number] #### [facility] [address] [place] [id number], [facility] Hematocrit (Bld) [Volume fraction] 40.4 % Normal 36.0-45.0 [facility] Comment on above: Order Comment: No: D o not add to previous draw Performed By: #### 8 [id number] #### [facility] [address] [place] [id number], [facility] Hemoglobin (Bld) [Mass/Vol] 12.9 g/dL Normal 12.0-15.0 [facility] Comment on above: Order Comment: No: D o not add to previous draw Performed By: #### 8 [id number] #### [facility] [address] [place] [address], [facility] IMMATURE GRANS 2.1 % High 0.0-1.0 The [facility] deepak [facility] Comment on above: Order Comment: No: D o not add to previous draw Performed By: #### 8 [id number] #### [facility] [address] [place] [address], [facility] Lymphocytes (Bld) [#/Vol] 0.8 10*3/uL Low 1.2-4.0 [facility] Comment on above: Order Comment: No: D o not add to previous draw Performed By: #### 8 [id number] #### [facility] [address] [place] [address], [facility] Lymphocytes/100 WBC (Bld) 2.6 % Low 20.0-45.0 [facility] Comment on above: Order Comment: No: D o not add to previous draw Performed By: #### 8 [id number] #### [facility] [address] [address], [facility] MCH (RBC) [Entitic mass] 30.6 pg Normal 27.0-33.0 [facility] Comment on above: Order Comment: No: D o not add to previous draw Performed By: #### 8 [id number] #### [facility] [address] [facility] [place] [address], [facility] MCHC (RBC) [Mass/Vol] 31.9 g/dL Low 32.0-35.0 [facility] Comment on above: Order Comment: No: D o not add to previous draw Performed By: #### 8 [id number] #### [facility] [address] [place] [id number], [facility] MCV (RBC) [Entitic vol] 96.0 fL Normal 82.0-98.0 [facility] Comment on above: Order Comment: No: D o not add to previous draw Performed By: #### 8 [id number] #### [facility] [address] [place] [address], [facility] Monocytes (Bld) [#/Vol] 0.5 10*3/uL Normal 0.1-1.0 [facility] Comment on above: Order Comment: No: D o not add to previous draw Performed By: #### 8 [id number] #### [facility] [address] [place] [address], [facility] MONOS 1.7 % Low 5.0-12.0 [facility] Comment on above: Order Comment: No: D o not add to previous draw Performed By: #### 8 [id number] #### [facility] [address] [place] [address], [facility] Neutrophils/100 WBC (Bld) 93.0 % High 40.0-72.0 [facility] Comment on above: Order Comment: No: D o not add to previous draw Performed By: #### 8 [id number] #### [facility] [address] [place] [address], [facility] Nucleated RBC/100 WBC (Bld) [Ratio] 0 % Normal 0-0 [facility] Comment on above: Order Comment: No: D o not add to previous draw Performed By: #### 8 [id number] #### [facility] [address] [facility] [place] [address], [facility] PLAT CNT 375 10*3/uL Normal 150-400 The [facility] Comment on above: Order Comment: No: D o not add to previous draw Performed By: #### 8 [id number] #### [facility] [address] [place] [address], [facility] RBC (Bld) [#/Vol] 4.21 10*6/uL Normal 3.80-5.00 [facility] [place] Comment on above: Order Comment: No: D o not add to previous draw Performed By: #### 8 [id number] #### [facility] [address] [place] [address], [facility] WBC (Bld) [#/Vol] 32.19 10*3/uL High 4.00-10.60 [facility] Comment on above: Order Comment: No: D o not add to previous draw Performed By: #### [id number] #### [facility] [address] [place] [address], [facility] COMP METABOLIC PANELon 04-01 Albumin [Mass/Vol] 3.1 g/dL Low 3.5-5.7 [facility] Comment on above: Order Comment: No: D o not add to previous draw Performed By: #### 2 2706 #### [facility] [address] [place] [address], [facility] ALKALINE PHOSPH 208 IU/L High 34-104 [facility] Comment on above: Order Comment: No: D o not add to previous draw Performed By: #### 2 2706 #### [facility] [address] [place] [address], [facility] ALT [Catalytic activity/Vol] 27 U/L Normal 7-52 [facility] Comment on above: Order Comment: No: D o not add to previous draw Performed By: #### 2 2706 #### [facility] [address] [place] [address], [facility] AST [Catalytic activity/Vol] 12 U/L Low 13-39 [facility] Comment on above: Order Comment: No: D o not add to previous draw Performed By: #### 2 2706 #### [facility] [address] [place] [address], [facility] Bilirubin [Mass/Vol] 1.8 mg/dL High 0.3-1.0 [facility] Comment on above: Order Comment: No: D o not add to previous draw Performed By: #### 2 2706 #### [facility] [address] [place] [address], [place] Calcium [Mass/Vol] 8.3 mg/dL Low 8.6-10.3 [facility] Comment on above: Order Comment: No: D o not add to previous draw Performed By: #### 2 2706 #### [facility] [address] [place] [address], [place] Chloride [Moles/Vol] 103 mmol/L Normal 98-107 [facility] Comment on above: Order Comment: No: D o not add to previous draw Performed By: #### 2 2706 #### [facility] [address] [place] [address], [place] CO2 [Moles/Vol] 20 mmol/L Low 21-31 [facility] Comment on above: Order Comment: No: D o not add to previous draw Performed By: #### 2 2706 #### [facility] [address] [place] [address], [facility] Creatinine [Mass/Vol] 1.12 mg/dL Normal 0.60-1.20 [facility] Comment on above: Order Comment: No: D o not add to previous draw Performed By: #### 2 2706 #### [facility] [address] eGFR- 56 ml/min/1.73sq m Abnormal >60 The [facility] Comment on above: Order Comment: No: D o not add to previous draw Result Comment: Calc ulation may not be valid for patients over 70 years Performed By: #### 2 2706 #### [facility] [address] [place] [id number], [facility] eGFR- non- 47 ml/min/1.73sq m Abnormal >60 [facility] Comment on above: Order Comment: No: D o not add to previous draw Result Comment: Calc ulation may not be valid for patients over 70 years Performed By: #### 2 2706 #### [facility] [address] [place] [address], [place] Glucose [Mass/Vol] 110 mg/dL High 70-100 [facility] Comment on above: Order Comment: No: D o not add to previous draw Performed By: #### 2 2706 #### [facility] [address] [place] [address], [place] Potassium [Moles/Vol] 4.1 mmol/L Normal 3.5-5.1 [facility] Comment on above: Order Comment: No: D o not add to previous draw Performed By: #### 2 2706 #### [facility] [address] [place] [address], [place] Protein [Mass/Vol] 6.1 g/dL Normal 6.0-8.3 [facility] Comment on above: Order Comment: No: D o not add to previous draw Performed By: #### 2 2706 #### [facility] [address] [place] [address], [place] Sodium [Moles/Vol] 134 mmol/L Low 136-145 [facility] Comment on above: Order Comment: No: D o not add to previous draw Performed By: #### 2 2706 #### [facility] [address] [place] [address], [place] Urea nitrogen [Mass/Vol] 21 mg/dL Normal 7-25 [facility] Comment on above: Order Comment: No: D o not add to previous draw Performed By: #### 2 2706 #### [facility] [address] [place] [address], [place] DIGOXINon 04-01-2022 Digoxin [Mass/Vol] 0.6 ng/mL Low 0.7-2.0 [facility] Comment on above: Performed By: #### 2 2706 #### [facility] [address] [place] [address], [place] DIRECT BILIon 04-01-2022 Bilirubin.direct [Mass/Vol] 0.7 mg/dL High 0.0-0.2 [facility] Comment on above: Order Comment: No: D o not add to previous draw Performed By: #### 2 2706 #### [facility] [address] [place] [address], [place] LIPASEon 04-01-2022 Lipase [Catalytic activity/Vol] 2234.0 U/L Critically high 73.0-393.0 [facility] Comment on above: Performed By: #### L IPA, CMP ####[facility] [address] [place] [address]Dr. Bhavani Barragan LIPASE BLOODon 04-01-2022 LIPASE 354 Units/L High 11-82 [facility] Comment on above: Order Comment: No: D o not add to previous draw Performed By: #### 2 2706 #### [facility] [address] [place] [address], [place] POC GLUCOSE LABon 04-01-2022 Glucose [Mass/Vol] 114 mg/dL High 70-100 [facility] Comment on above: Performed By: #### 8 [id number] #### [facility] [address] [place] [address], [place] Glucose [Mass/Vol] 113 mg/dL High 70-100 [facility] Comment on above: Performed By: #### 8 [id number] #### [facility] [address] [place] [address], [place] Glucose [Mass/Vol] 101 mg/dL High 70-100 [facility] Comment on above: Performed By: #### 3 0313 #### [facility] [address] [place] [address], [place] PROF 14(COMP METB)on 022 Albumin [Mass/Vol] 2.0 g/dL Critically low 3.4-5.[address] [facility] Comment on above: Performed By: #### L IPA, CMP ####[facility] [address] [place] [address]Dr. Bhavani Barragan Albumin/Globulin [Mass ratio] 0.5 {ratio} Normal [facility] Comment on above: Performed By: #### L IPA, CMP ####[facility] [address] [place] [address]Dr. Bhavani Barragan ALP [Catalytic activity/Vol] 247 U/L Critically high 46-116 [facility] Comment on above: Performed By: #### L IPA, CMP ####[facility] V[address] [place], [place] [address]Dr. Bhavani Barragan ALT [Catalytic activity/Vol] 50 U/L Normal 14-59 [facility] Comment on above: Performed By: #### L IPA, CMP ####[facility] F[address] [place], [place] [address]Dr. Bhavani Barragan Anion gap [Moles/Vol] 11.2 mmol/L Normal [facility] Comment on above: Performed By: #### L IPA, CMP ####[facility] Nilscxt[address] [place], [place] [address]Dr. Bhavani Barragan AST [Catalytic activity/Vol] 19 U/L Normal 15-37 [facility] Comment on above: Performed By: #### L IPA, CMP ####[facility] Nnhya[address]lju[address] [place], [place] [address]Dr. Bhavani Barragan Bilirubin [Mass/Vol] 1.5 mg/dL Critically high 0.2-1.0 [facility] Comment on above: Performed By: #### L IPA, CMP ####[facility] [address] [place] [address]Dr. Bhavani Barragan Calcium [Mass/Vol] 8.1 mg/dL Critically low 8.5-10.[address] [facility] Comment on above: Performed By: #### L IPA, CMP ####[facility] [address] [place], [place] [address]Dr. Bhavani Barragan Chloride [Moles/Vol] 105 mmol/L Normal 98-107 The [facility] Comment on above: Performed By: #### L IPA, CMP ####[facility] Gcudalumbh[address] [place], [place] [address]Dr. Bhavani Barragan CO2 [Moles/Vol] 25.1 mmol/L Normal 21.0-32.0 [facility] Comment on above: Performed By: #### L IPA, CMP ####[facility] [address]kaq[address] [place], [place] [address]Dr. Bhavani Barragan Creatinine [Mass/Vol] 1.39 mg/dL Critically high 0.55-1.02 [facility] Comment on above: Performed By: #### L IPA, CMP ####[facility] Pie[address] [place], [place] [address]Dr. Bhavani Barragan EGFR-AF MALDIVIAN 44 mL/min/1.73m2 Critically low >=60 [facility] Comment on above: Performed By: #### L IPA, CMP ####[facility] [address] [place], [place] [address]Dr. Bhavani Barragan EGFR-NON AF MALDIVIAN 36 mL/min/1.73m2 Critically low >=60 The [facility] Comment on above: Performed By: #### L IPA, CMP ####[facility] [address] [place], [place] [address]Dr. Bhavani Barragan Globulin (S) [Mass/Vol] 4.3 g/dL Normal [facility] Comment on above: Performed By: #### L IPA, CMP ####[facility] Vyujjw[address] [place], [place] [address]Dr. Bhavani Barragan Glucose [Mass/Vol] 113 mg/dL Critically high 74-106 [facility] Comment on above: Performed By: #### L IPA, CMP ####[facility] Lbniynthin[address] [place], [place] [address]Dr. Bhavani Barragan Potassium [Moles/Vol] 4.3 mmol/L Normal 3.5-5.1 The [facility] Comment on above: Performed By: #### L IPA, CMP ####[facility] [address] [place] [address]Dr. Bhavani Barragan Protein [Mass/Vol] 6.3 g/dL Critically low 6.4-8.2 Th e [facility] Comment on above: Performed By: #### L IPA, CMP ####[facility] [address] [place] [address]Dr. Bhavani Barragan Sodium [Moles/Vol] 137 mmol/L Normal 136-145 [facility] Comment on above: Performed By: #### L IPA, CMP ####[facility] G[address]fr[address] [place], [place] [address]Dr. Bhavani Barragan Urea nitrogen [Mass/Vol] 26.0 mg/dL Critically high 7.0-18.0 [facility] Comment on above: Performed By: #### L IPA, CMP ####[facility] [address] [place], [place] [address]Dr. Bhavani Barragan Urea nitrogen/Creatinine [Mass ratio] 18.7 mg/mg Normal [facility] Comment on above: Performed By: #### L IPA, CMP ####[facility] [address]ugsp[address] [place], [place] [address]Dr. Bhavani Barragan PROTIMEon 04-01-2022 INR Coag (PPP) [Relative time] 1.14 {INR} Normal [facility] Comment on above: Performed By: #### P TT, PT ####[facility] [address] [place], [place] [address]Dr. Bhavani Barragan INR GUIDELINES SEE BELOW Normal The [facility] Comment on above: Result Comment: WALKER RED INR: 2.0 - 3.0 CONDITIONS NOT LISTED BELOW 2.5 - 3.5 FOR PROSTHETIC HEART VALVE REPLACEMENT 2.5 - 3.5 RECURRENT THROMBOSIS Performed By: #### P TT, PT ####[facility] Knq[address] [place], [place] [address]Dr. Bhavani Barragan PT Coag (PPP) [Time] 12.2 s Critically high 9.0-11.6 [facility] Comment on above: Performed By: #### P TT, PT ####[facility] I[address] [place], [place] [address]Dr. Bhavani Barragan PTTon 04-01-2022 aPTT Coag (Bld) [Time] 25.4 s Normal 22.3-36.2 [facility] Comment on above: Performed By: #### P TT, PT ####[facility] [address] [place], [place] [address]Kx. Bhavani Barragan TROPONIN-Ion 04-01-2022 Troponin I.cardiac [Mass/Vol] 0.02 ng/mL Normal 0.00-0.04 [facility] Comment on above: Result Comment: REFE RENCE RANGES: 0.00 - 0.04 ng/ml NORMAL 0.05 - 0.50 ng/ml INDETERMINATE > 0.50 ng/ml CONSISTENT WITH AN M.I. Performed By: #### 2 2706 #### [facility] [address] [facility]. [address] UFH HEPARIN ASSAYon 04-01-20 UNFRACTIONATED HEPARIN >1.00 Critically high 0.30-0.70 [facility] Comment on above: Result Comment: Resu lt checked and called. Accurately read back by EYAL GRIFFIN RN ON 04/01/2022 AT 22:07 Rivaroxaban and Apixaban will interfere with the anti Xa assay used to monitor UFH and LMWH. Performed By: #### 8 [id number] #### [facility] [address] [facility] [place] [address], [facility] UNFRACTIONATED HEPARIN >1.00 Critically high 0.30-0.70 [facility] Comment on above: Result Comment: Resu lt checked and called. Accurately read back by YANICK MICHAELS RN ON 04/01/2022 AT 16:07 Rivaroxaban and Apixaban will interfere with the anti Xa assay used to monitor UFH and LMWH. Performed By: #### 8 [id number] #### [facility] [address] [place] [address], [facility] AMMONIAon 03-31-2022 Ammonia (P) [Mass/Vol] ug/dL Critically low 11-32 [facility] Comment on above: Performed By: #### A MM ####[facility] [address] [place] [address]Dr. Bhavani Barragan CBC AUTO DIFFon 03-31-2022 BASO # 0.1 103/ul Normal 0.0-0.1 [facility] Comment on above: Performed By: #### C BC ####[facility] [address] [place] [address]Dr. Bhavani Laurel Basophils/100 WBC (Bld) 0.4 % Normal 0.2-2.0 The [facility] Comment on above: Performed By: #### C BC ####[facility] [address] [place], [place] [address]Dr. Bhvaani Laurel EO # 0.0 103/ul Normal 0.0-0.7 The [facility] Comment on above: Performed By: #### C BC ####[facility] Kumr[address] [place], [place] [address]Dr. Jayceeroxi Barragan Eosinophils/100 WBC (Bld) 0.1 % Critically low 0.9-7.0 [facility] Comment on above: Performed By: #### C BC ####[facility] [address] [place], [place] [address]Dr. Bhavani Barragan Erythrocyte distribution width (RBC) [Ratio] 17.7 % Critically high 11.0-15.0 [facility] Comment on above: Performed By: #### C BC ####[facility] F[address] [place], [place] [address]Dr. Bhavani Barragan Hematocrit (Bld) [Volume fraction] 36.5 % Normal 36.0-48.0 The [facility] Comment on above: Performed By: #### C BC ####[facility] Je[address] [place], [place] [address]Dr. Jayceeroxi Barragan Hemoglobin (Bld) [Mass/Vol] 11.5 g/dL Critically low 12.0-16.0 The [facility] Comment on above: Performed By: #### C BC ####[facility] [address] [place], [place] [address]Dr. Bhavani Barragan IG # 0.38 10e3/ul Critically high 0.00-0.03 [facility] Comment on above: Performed By: #### C BC ####[facility] [address] [place] [address]DrLydia Barragan IG % 1.2 % Critically high 0.0-0.5 [facility] Comment on above: Performed By: #### C BC ####[facility] [address] [place] [address]DrLydia Barragan LYMPH # 0.7 103/ul Critically low 1.2-3.8 [facility] Comment on above: Performed By: #### C BC ####[facility] [address] [place] [address]DrLydia Barragan Lymphocytes/100 WBC (Bld) 2.4 % Critically low 20.5-60.0 [facility] Comment on above: Performed By: #### C BC ####[facility] [address] [place], [place] [address]DrLydia Barragan MANUAL DIFF REQ NO Normal [facility] Comment on above: Performed By: #### C BC ####[facility] [address] [place] [address]DrLydia Barragan MCH (RBC) [Entitic mass] 30.3 pg Normal 26.7-34.0 [facility] Comment on above: Performed By: #### C BC ####[facility] [address] [place] [address]Dr. Bhavani Barragan MCHC (RBC) [Mass/Vol] 31.5 g/dL Normal 29.9-35.2 [facility] Comment on above: Performed By: #### C BC ####[facility] [address]bl[address] [place] [address]DrLydia Barragan MCV (RBC) [Entitic vol] 96.3 fL Normal 81.0-99.0 [facility] Comment on above: Performed By: #### C BC ####[facility] Dx[address] [place], [place] [address]DrLydia Barragan MONO # 0.8 103/ul Normal 0.3-0.8 [facility] Comment on above: Performed By: #### C BC ####[facility] [address] [place] [address]Dr. Bhavani Barragan Monocytes/100 WBC (Bld) 2.5 % Normal 1.7-12.0 [facility] Comment on above: Performed By: #### C BC ####[facility] [address] [place] [address]Dr. Bhavani Barragan NEUT # 29.0 103/ul Critically high 1.4-6.5 [facility] Comment on above: Performed By: #### C BC ####[facility] [address]clb[address]io[address] [place] [address]Dr. Bhavani Barragan Neutrophils/100 WBC (Bld) 93.4 % Critically high 43.0-75.0 The [facility] Comment on above: Performed By: #### C BC ####[facility] [address] [place], [place] [address]Dr. Bhavani Barragan Platelet mean volume (Bld) [Entitic vol] 10.5 fL Normal 9.5-13.5 The [facility] Comment on above: Performed By: #### C BC ####[facility] [address]fe[address] [place], [place] [address]Dr. Bhavani Barragan PLT 346 103/ul Normal 150-450 [facility] Comment on above: Performed By: #### C BC ####[facility] [address] [place] [address]Dr. Bhavani Barragan RBC 3.79 106/ul Critically low 4.20-5.40 The [facility] Comment on above: Performed By: #### C BC ####[facility] [address] [place] [id number]. Bhavani Barragan WBC 31.0 103/ul Critically high 4.0-11.0 [facility] Comment on above: Performed By: #### C BC ####[facility] [address]wiib[address] [place] [id number]. Bhavani Barragan CT CHEST WO CONon 05-14-2022 CT CHEST WO CON Normal [facility] LIPASEon 03-31-2022 Lipase [Catalytic activity/Vol] 3577.0 U/L Critically high 73.0-393.0 [facility] Comment on above: Performed By: #### L IPA ####[facility] [address]xt[address] [place] [address]Dr. Bhavani Barragan MRI ABDOMEN WO CONon 022 MRI ABDOMEN WO CON Normal [facility] POINT OF CARE GLUCOSEon 03-18 Glucose [Mass/Vol] 153 mg/dL Critically high 74-106 [facility] Comment on above: Performed By: #### P OCGLUC ####[facility] [address] [place], [place] [address]Dr. Bhavani Barragan Glucose [Mass/Vol] 158 mg/dL Critically high 74-106 [facility] Comment on above: Performed By: #### P OCGLUC ####[facility] R[address]uwldf[address] [place] [address]Dr. Bhavani Barragan Glucose [Mass/Vol] 120 mg/dL Critically high 74-106 [facility] Comment on above: Performed By: #### P OCGLUC ####[facility] [address]neihnvoce[address] [place], [place] [address]Dr. Bhavani Barragan Glucose [Mass/Vol] 74 mg/dL Normal 74-106 [facility] Comment on above: Performed By: #### P OCGLUC ####[facility] [address]imup[address] [place], [place] [address]Dr. Bhavani Barragan PROF 14(COMP METB)on 022 Albumin [Mass/Vol] 1.9 g/dL Critically low 3.4-5.0 [facility] Comment on above: Performed By: #### C MP ####[facility] J[address]ozwnsc[address] [place], [place] [address]Dr. Bhavani Barragan Albumin/Globulin [Mass ratio] 0.5 {ratio} Normal [facility] Comment on above: Performed By: #### C MP ####[facility] Mut[address]aqktn[address] [place], [place] [address]Dr. Bhavani Barragan ALP [Catalytic activity/Vol] 283 U/L Critically high 46-116 [facility] Comment on above: Performed By: #### C MP ####[facility] I[address]fve[address]iz[address] [place] [address]Dr. Bhavani Barragan ALT [Catalytic activity/Vol] 64 U/L Critically high 14-59 [facility] Comment on above: Performed By: #### C MP ####[facility] Mrmflpkhio[address] [place] [address]Dr. Bhavani Barragan Anion gap [Moles/Vol] 11.6 mmol/L Normal [facility] Comment on above: Performed By: #### C MP ####[facility] Z[address]df[address]uc[address] [place] [address]Dr. Bhavani Barragan AST [Catalytic activity/Vol] 52 U/L Critically high 15-37 [facility] Comment on above: Performed By: #### C MP ####[facility] [address]xawzk[address] [place], [place] [address]Dr. Bhavani Barragan Bilirubin [Mass/Vol] 2.8 mg/dL Critically high 0.2-1.0 [facility] Comment on above: Performed By: #### C MP ####[facility] Erjurnq[address] [place], [place] [address]Dr. Bhavani Barragan Calcium [Mass/Vol] 7.9 mg/dL Critically low 8.5-10.[address] [facility] Comment on above: Performed By: #### C MP ####[facility] [address]kz[address] [place], [place] [address]Dr. Bhavani Laurel Chloride [Moles/Vol] 102 mmol/L Normal 98-107 The [facility] Comment on above: Performed By: #### C MP ####[facility] [address]upmjbqif[address] [place], [place] [address]Dr. Bhavani Laurel CO2 [Moles/Vol] 27.4 mmol/L Normal 21.0-32.0 [facility] Comment on above: Performed By: #### C MP ####[facility] [address]nttrqksti[address] [place], [place] [address]Dr. Bhavani Laurel Creatinine [Mass/Vol] 1.48 mg/dL Critically high 0.55-1.02 [facility] Comment on above: Performed By: #### C MP ####[facility] [address] [place] [address]Dr. Bhavani Barragan EGFR-AF MALDIVIAN 41 mL/min/1.73m2 Critically low >=60 [facility] Comment on above: Performed By: #### C MP ####[facility] [address]tu[address]sutq[address] [place] [address]Dr. Bhavani Barragan EGFR-NON AF MALDIVIAN 34 mL/min/1.73m2 Critically low >=60 [facility] Comment on above: Performed By: #### C MP ####[facility] Gfrjeknwom[address] [place], [place] [address]Dr. Bhavani Barragan Globulin (S) [Mass/Vol] 4.0 g/dL Normal [facility] Comment on above: Performed By: #### C MP ####[facility] Z[address]qq[address] [place], [place] [address]Dr. Bhavani Barragan Glucose [Mass/Vol] 84 mg/dL Normal 74-106 [facility] Comment on above: Performed By: #### C MP ####[facility] [address]cfjmk[address] [place], [place] [address]Dr. Bhavani Barragan Potassium [Moles/Vol] 4.0 mmol/L Normal 3.5-5.1 [facility] Comment on above: Performed By: #### C MP ####[facility] [address]jb[address] [place], [place] [address]Dr. Bhavani Barragan Protein [Mass/Vol] 5.9 g/dL Critically low 6.4-8.[address] [facility] Comment on above: Performed By: #### C MP ####[facility] [address] [place], [place] [address]Dr. Bhavani Barragan Sodium [Moles/Vol] 137 mmol/L Normal 136-145 [facility] Comment on above: Performed By: #### C MP ####[facility] [address] [place], [place] [address]Dr. Bhavani Barragan Urea nitrogen [Mass/Vol] 26.0 mg/dL Critically high 7.0-18.0 [facility] Comment on above: Performed By: #### C MP ####[facility] [address]hrxby[address] [place], [place] [address]Dr. Bhavani Barragan Urea nitrogen/Creatinine [Mass ratio] 17.6 mg/mg Normal [facility] Comment on above: Performed By: #### C MP ####[facility] Waot[address]pvq[address] [place], [place] [address]Dr. Bhavani Barragan PROTIMEon 03-31-2022 INR Coag (PPP) [Relative time] 1.34 {INR} Normal The [facility] Comment on above: Performed By: #### P T, PTT ####[facility] [address]cj[address] [place], [place] [address]Dr. Bhavani Barragan INR GUIDELINES SEE BELOW Normal The [facility] Comment on above: Result Comment: WALKER RED INR: 2.0 - 3.0 CONDITIONS NOT LISTED BELOW 2.5 - 3.5 FOR PROSTHETIC HEART VALVE REPLACEMENT 2.5 - 3.5 RECURRENT THROMBOSIS Performed By: #### P T, PTT ####[facility] Nysvgcefyv[address] [place], [place] [address]Dr. Bhavani Barragan PT Coag (PPP) [Time] 14.2 s Critically high 9.0-11.6 The [facility] Comment on above: Performed By: #### P T, PTT ####[facility] Gimbqxvxwo[address] [place], [place] [address]Dr. Bhavani Barragan PTTon 03-31-2022 aPTT Coag (Bld) [Time] 37.6 s Critically high 22.3-36.2 The [facility] Comment on above: Performed By: #### P T, PTT ####[facility] Peckvpjscg[address] [place], [place] [address]Dr. Bhavani Barragan XR CHEST 1 Von 03-31-2022 XR CHEST 1 V Normal [facility] AMMONIAon 03-30-2022 Ammonia (P) [Moles/Vol] 30 umol/L Normal 11-32 [facility] Comment on above: Performed By: #### A MM ####[facility] [address]ktrpuv[address] [place] [address]Dr. Bhavani Barragan CBC W MANUAL DIFFon 03-30-20 22 ATYPICAL LYMPH # Normal The [facility] Comment on above: Performed By: #### C OMID ####[facility] Yneoyjarfh[address] [place] [address]Dr. Bhavani Barragan ATYPICAL LYMPH % Normal [facility] Comment on above: Performed By: #### C OMID ####[facility] H[address]juwsujx[address] [place] [address]Dr. Bhavani Barragan BAND # Normal 0.0-0.3 [facility] Comment on above: Performed By: #### C OMID ####[facility] Kuvobpifmo[address] [place], [place] [address]Dr. Bhavani Barragan BAND % Normal 0-5 The [facility] Comment on above: Performed By: #### C OMID ####[facility] Tforrjknim[address] [place], [place] [address]Dr. Bhavani Barragan BASOM # 0.00 103/ul Normal 0.00-0.10 [facility] Comment on above: Performed By: #### C OMID ####[facility] Rrzemiwzsi[address] [place], [place] [address]Dr. Bhavani Barragan BASOM % 0.0 % Critically low 0.2-2.0 The [facility] Comment on above: Performed By: #### C OMID ####[facility] Ktjjzy[address]xq[address] [place], [place] [address]Dr. Bhavani Barragan BLAST # Normal [facility] Comment on above: Performed By: #### C OMID ####[facility] Bzwzaiem[address] [place], [place] [address]Dr. Bhavani Barragan BLAST % Normal [facility] Comment on above: Performed By: #### C OMID ####[facility] Njhgswwwwr[address] [place], [place] [address]Dr. Bhavani Laurel CORRECTED WBC Normal 4.0-11.0 The [facility] Comment on above: Performed By: #### C OMID ####[facility] Votonrjtwc5[address] [place], [place] [address]Dr. Bhavani Barragan EOS # 0.00 103/ul Normal 0.00-0.70 [facility] Comment on above: Performed By: #### C OMID ####[facility] Rzzombsete[address] [place] [id number]. Bhavani Barragan EOS% 0.0 % Critically low 0.9-7.0 [facility] Comment on above: Performed By: #### C OMID ####[facility] Aggpnphlca2[address] [place] [phone]. Bhavani Barragan HCT 39.8 % Normal 36.0-48.0 The [facility] Comment on above: Performed By: #### C OMID ####[facility] Iqxiocpdty18[address] [place] [address]Dr. Bhavani Barragan HGB 12.2 g/dl Normal 12.0-16.0 [facility] Comment on above: Performed By: #### C OMID ####[facility] Mmeqwcopyw[address] [place] [address]Dr. Bhavani Barragan LYMPHM # 0.56 103/ul Critically low 1.20-3.80 The [facility] Comment on above: Performed By: #### C OMID ####[facility] Zvepggktdn47[address] [place] [address]Dr. Bhavani Barragan LYMPHM% 2.0 % Critically low 20.5-60.0 The [facility] Comment on above: Performed By: #### C OMID ####[facility] Uosaviuxmy[address] [place] [phone]. Bhavani Barragan MCH 29.7 pg Normal 26.7-34.0 The [facility] Comment on above: Performed By: #### C OMID ####[facility] Isphlsvoip7826 [place] [phone]. Bhavani Barragan MCHC 30.7 g/dl Normal 29.9-35.2 The [facility] Comment on above: Performed By: #### C OMID ####[facility] Rckauqsfpv7[address] [place] [address]Dr. Bhavani Barragan MCV 96.8 fL Normal 81.0-99.0 [facility] Comment on above: Performed By: #### C OMID ####[facility] Rlppiqiltk9205 [place] [phone]. Bhavani Barragan METAMYELOCYTE # Normal [facility] Comment on above: Performed By: #### C OMID ####[facility] Fntuuiyqsn3616 [place] [phone]. Bhavani Barragan METAMYELOCYTE % Normal [facility] Comment on above: Performed By: #### C OMID ####[facility] Gvnnkttsdl9451 [place] [phone]. Bhavani Barragan MONOM# 0.28 103/ul Critically low 0.30-0.80 [facility] Comment on above: Performed By: #### C OMID ####[facility] Tmqccpvrhn0327 [place] [phone]. Bhavani Barragan MONOM% 1.0 % Critically low 1.7-12.0 [facility] Comment on above: Performed By: #### C OMID ####[facility] Pxattjtkck0549 [place] [phone]. Bhavani Laurel MPV 10.2 fL Normal 9.5-13.5 [facility] Comment on above: Performed By: #### Jany ANNE ####[facility] Gfwihfewpg9[address] [place] [phone]. Bhavani Barragan MYELOCYTE # Normal [facility] Comment on above: Performed By: #### C OMID ####[facility] Rsazqgykyy7495 [place] [phone]. Bhavani Barragan MYELOCYTE % Normal [facility] Comment on above: Performed By: #### C OMID ####[facility] Gnrizfohne[address] [place], [place] [address]Dr. Bhavani Barragan NRBC Normal [facility] Comment on above: Performed By: #### C OMID ####[facility] Tujjlgyfon2859 [place] [phone]. Jayceeroxi Barragan PLT 371 103/ul Normal 150-450 The [facility] Comment on above: Performed By: #### C OMID ####[facility] Cmgsnlqcum[address] [place], [place] [address]Dh. Bhavani Barragan RBC 4.11 106/ul Critically low 4.20-5.40 [facility] Comment on above: Performed By: #### C OMID ####[facility] Ysabeoqgxb[address]707 [place], [place] [address]Zg. Bhavani Barragan RDW 17.4 % Critically high 11.0-15.0 [facility] Comment on above: Performed By: #### C OMID ####[facility] Qngbudbzcg6189 [place], [place] [address]Vm. Bhavani aBrragan SEG # 27.35 103/ul Critically high 1.40-6.50 [facility] Comment on above: Performed By: #### C OMID ####[facility] Izjbmkpewq2130 [place], [place] [address]Gy. Bhavani Barragan SEG % 97.0 % Critically high 43.0-75.0 [facility] Comment on above: Performed By: #### C OMID ####[facility] Njiwplpmrk8417 [place], [place] [address]Ik. Bhavani Barragan WBC 28.2 103/ul Critically high 4.0-11.0 [facility] Comment on above: Performed By: #### C OMID ####[facility] Nuyctvtijh5004 [place], [place] [address]Qf. Bhavani Barragan POINT OF CARE GLUCOSEon 05- Glucose [Mass/Vol] 92 mg/dL Normal 74-106 [facility] Comment on above: Performed By: #### P OCGLUC ####[facility] Pfugbijdzs5582 [place], [place] [address]Db. Bhavani Barragan Glucose [Mass/Vol] 122 mg/dL Critically high 74-106 [facility] Comment on above: Result Comment: Foll ow Protocol Performed By: #### P OCGLUC ####[facility] Gqwbrikkjj3071 [place], [place] [address]Xx. Bhavani Barragan Glucose [Mass/Vol] 107 mg/dL Critically high 74-106 [facility] Comment on above: Performed By: #### P OCGLUC ####[facility] Iqsdlxofho9836 [place] [address]DrLydia Barragan PROF 14(COMP METB)on 022 Albumin [Mass/Vol] 2.0 g/dL Critically low 3.4-5.0 Th e [facility] Comment on above: Performed By: #### C MP ####[facility] Enbgvzalut24[address] [place] [address]Dr. Bhavani Barragan Albumin/Globulin [Mass ratio] 0.5 {ratio} Normal [facility] Comment on above: Performed By: #### C MP ####[facility] [address]ks[address]vjlqmf[address] [place], [place] [address]Dr. Bhavani Barragan ALP [Catalytic activity/Vol] 298 U/L Critically high 46-116 [facility] Comment on above: Performed By: #### C MP ####[facility] Eculwvrxxq95[address] [place], [place] [address]Dr. Bhavani Barragan ALT [Catalytic activity/Vol] 94 U/L Critically high 14-59 [facility] Comment on above: Performed By: #### C MP ####[facility] Obbleutajc[address] [place], [place] [address]Dr. Bhavani Barragan Anion gap [Moles/Vol] 12.8 mmol/L Normal [facility] Comment on above: Performed By: #### C MP ####[facility] Tpqpgjyens9831 [place] [address]Dr. Bhavani Barragan AST [Catalytic activity/Vol] 73 U/L Critically high 15-37 [facility] Comment on above: Performed By: #### C MP ####[facility] Ybmfzyyxie3014 [place] [address]DrLydia Barragan Bilirubin [Mass/Vol] 3.6 mg/dL Critically high 0.2-1.0 [facility] Comment on above: Performed By: #### C MP ####[facility] Cclcblpggc9620 [place] [address]DrLydia Barragan Calcium [Mass/Vol] 7.8 mg/dL Critically low 8.5-10.1 Th e [facility] Comment on above: Performed By: #### C MP ####[facility] Kpsmokmydd4286 [place] [address]Dr. Bhavani Laurel Chloride [Moles/Vol] 103 mmol/L Normal 98-107 [facility] Comment on above: Performed By: #### C MP ####[facility] Qjyegmkhhx9416 [place] [address]Dr. Bhavani Laurel CO2 [Moles/Vol] 25.2 mmol/L Normal 21.0-32.0 [facility] Comment on above: Performed By: #### C MP ####[facility] Mvdpolstuv646[address] [place], [place] [address]Dr. Jayceeroxi Laurel Creatinine [Mass/Vol] 1.38 mg/dL Critically high 0.55-1.02 [facility] Comment on above: Performed By: #### C MP ####[facility] Mqwvqjbsup[address] [place], [place] [address]Dr. Bhavani Laurel EGFR-AF MALDIVIAN 44 mL/min/1.73m2 Critically low >=60 [facility] Comment on above: Performed By: #### C MP ####[facility] Tspjmuhjkc[address] [place], [place] [address]Dr. Bhavani Laurel EGFR-NON AF MALDIVIAN 37 mL/min/1.73m2 Critically low >=60 [facility] Comment on above: Performed By: #### C MP ####[facility] Dbdlxaiavr3174[address] [place], [place] [address]Dr. Bhavani Barragan Globulin (S) [Mass/Vol] 4.1 g/dL Normal [facility] Comment on above: Performed By: #### C MP ####[facility] Zpvfazxnpi72[address] [place], [place] [address]Dr. Bhavani Barragan Glucose [Mass/Vol] 109 mg/dL Critically high 74-106 [facility] Comment on above: Performed By: #### C MP ####[facility] Gkqconraux69[address] [place], [place] [address]Dr. Bhavani Barragan Potassium [Moles/Vol] 4.0 mmol/L Normal 3.5-5.1 [facility] Comment on above: Performed By: #### C MP ####[facility] Nlbwlxgflv9637[address] [place], [place] [address]Dr. Bhavani Barragan Protein [Mass/Vol] 6.1 g/dL Critically low 6.4-8.2 Th e [facility] Comment on above: Performed By: #### C MP ####[facility] Wofaapyiuu01[address] [place], [place] [address]Dr. Bhavani Barragan Sodium [Moles/Vol] 137 mmol/L Normal 136-145 [facility] Comment on above: Performed By: #### C MP ####[facility] Rhfxuohfec[address] [place], [place] [address]Dr. Bhavani Barragan Urea nitrogen [Mass/Vol] 22.0 mg/dL Critically high 7.0-18.0 [facility] Comment on above: Performed By: #### C MP ####[facility] Naeblzcrei7364[address] [place], [place] [address]Dr. Bhavani Barragan Urea nitrogen/Creatinine [Mass ratio] 15.9 mg/mg Normal [facility] Comment on above: Performed By: #### C MP ####[facility] Duohkdebva67[address] [place], [place] [address]Dr. Bhavani Barragan PROTIMEon 03-30-2022 INR Coag (PPP) [Relative time] 1.28 {INR} Normal [facility] Comment on above: Performed By: #### P T, PTT ####[facility] Ccevagynll8[address] [place], [place] [address]Dr. Bhavani Barragan INR GUIDELINES SEE BELOW Normal [facility] Comment on above: Result Comment: WALKER RED INR: 2.0 - 3.0 CONDITIONS NOT LISTED BELOW 2.5 - 3.5 FOR PROSTHETIC HEART VALVE REPLACEMENT 2.5 - 3.5 RECURRENT THROMBOSIS Performed By: #### P T, PTT ####[facility] Attvtcypps3656[address] [place], [place] [address]Dr. Bhavani Barragan PT Coag (PPP) [Time] 13.6 s Critically high 9.0-11.6 [facility] Comment on above: Performed By: #### P T, PTT ####[facility] Btflkmkhbi[address] [place] [address]Dr. Bhavani Barragan PTTon 03-30-2022 aPTT Coag (Bld) [Time] 34.9 s Normal 22.3-36.2 The [facility] Comment on above: Performed By: #### P T, PTT ####[facility] Persipbfdu88[address] [place], [place] [address]Dr. Bhavani Barragan US SINGLE QUAD RT UPPERon US SINGLE QUAD RT UPPER Normal The [facility] AMMONIAon 03-29-2022 Ammonia (P) [Moles/Vol] 17 umol/L Normal 11-32 The [facility] Comment on above: Performed By: #### A MM ####[facility] Ttxxirbnnd[address] [place], [place] [address]Dr. Bhavani Barragan CBC W MANUAL DIFFon 03-29-20 ANISOCYTOSIS 2+ Normal [facility] Comment on above: Performed By: #### C BCMAN ####[facility] Cweddufmud[address] [place], [place] [address]Dr. Bhavani Barragan ATYPICAL LYMPH # Normal [facility] Comment on above: Performed By: #### C BCMAN ####[facility] Bzivnmenlo[address] [place], [place] [address]Dr. Bhavani Barragan ATYPICAL LYMPH % Normal [facility] Comment on above: Performed By: #### C BCMAN ####[facility] Mkvlribrri[address] [place] [address]Dr. Jayceeroxi Laurel BAND # 1.2 103/ul Critically high 0.0-0.3 The [facility] Comment on above: Performed By: #### C BCMAN ####[facility] Jsdrvtgpvr8968 [place] [address]Dr. Bhavani Barragan BAND % 4 % Normal 0-5 The [facility] Comment on above: Performed By: #### C BCMAN ####[facility] Vrqngglkei5[address] [place], [place] [address]Dr. Bhavani Barragan BASOM # 0.00 103/ul Normal 0.00-0.10 The [facility] Comment on above: Performed By: #### C OMID ####[facility] Bzxoqlftwq2599 [place] [address]Dr. Bhavani Barragan BASOM % 0.0 % Critically low 0.2-2.0 The [facility] Comment on above: Performed By: #### C OMID ####[facility] Tbztbuyaau3691 [place] [address]Dr. Bhavani Barragan BLAST # Normal [facility] Comment on above: Performed By: #### C BCJERSON ####[facility] Ixfafqjypp7824 [place] [address]Dr. Bhavani Barragan BLAST % Normal [facility] Comment on above: Performed By: #### C OMID ####[facility] Cxazffeyhp7[address] [place], [place] [address]Dr. Bhavani Barragan CORRECTED WBC Normal 4.0-11.0 The [facility] Comment on above: Performed By: #### C OMID ####[facility] Tqjmoengtt86[address] [place], [place] [address]Dr. Bhavani Barragan EOS # 0.00 103/ul Normal 0.00-0.70 [facility] Comment on above: Performed By: #### C OMID ####[facility] Nairpifapr00[address] [place], [place] [address]Dr. Bhavani Barragan EOS% 0.0 % Critically low 0.9-7.0 The [facility] Comment on above: Performed By: #### C OMID ####[facility] Nnxgsigyfd39[address] [place], [place] [address]Dr. Bhavani Barragan HCT 41.4 % Normal 36.0-48.0 [facility] Comment on above: Performed By: #### C OMID ####[facility] Akwtphcafm[address] [place], [place] [address]Dr. Bhavani Barragan HGB 12.6 g/dl Normal 12.0-16.0 [facility] Comment on above: Performed By: #### C OMID ####[facility] Uazorpgbgy[address] [place], [place] [address]Dr. Bhavani Barragan LYMPHM # 0.62 103/ul Critically low 1.20-3.80 The [facility] Comment on above: Performed By: #### C OMID ####[facility] Njhspbilfr8658 [place] [phone]. Bhavani Barragan LYMPHM% 2.0 % Critically low 20.5-60.0 The [facility] Comment on above: Performed By: #### C OMID ####[facility] Lnctaramrq03[address] [place] [address]Dr. Bhavani Barragan MCH 29.6 pg Normal 26.7-34.0 [facility] Comment on above: Performed By: #### C OMID ####[facility] Lfuanufzjo1862 [place] [address]Dr. Bhavani Barragan MCHC 30.4 g/dl Normal 29.9-35.2 The [facility] Comment on above: Performed By: #### C OMID ####[facility] Otulcjiprn[address] [place], [place] [address]Dr. Bhavani Barragan MCV 97.4 fL Normal 81.0-99.0 The [facility] Comment on above: Performed By: #### C OMID ####[facility] Jxogfibehy[address] [place], [place] [address]Dr. Bhavani Barragan METAMYELOCYTE # Normal The [facility] Comment on above: Performed By: #### C OMID ####[facility] Irfoxssayb[address] [place], [place] [address]Dr. Bhavani Barragan METAMYELOCYTE % Normal The [facility] Comment on above: Performed By: #### C OMID ####[facility] Zpogcfvhsx8278 [place] [phone]. Bhavani Barragan MONOM# 0.93 103/ul Critically high 0.30-0.80 The [facility] Comment on above: Performed By: #### C OMID ####[facility] Dvgsmqzifl0501 [place] [address]Dr. Bhavani Barragan MONOM% 3.0 % Normal 1.7-12.0 [facility] Comment on above: Performed By: #### C OMID ####[facility] Rbamxcawjr2673 [place], [place] [address]Jv. Bhavani Barragan MPV 9.7 fL Normal 9.5-13.5 The [facility] Comment on above: Performed By: #### C OMID ####[facility] Bbhbkahinx5126 [place], [place] [address]Mb. Bhavani Barragan MYELOCYTE # Normal [facility] Comment on above: Performed By: #### C OMID ####[facility] Ogrgzmorjm4823 [place], [place] [address]Nm. Bhavani Barragan MYELOCYTE % Normal [facility] Comment on above: Performed By: #### C OMID ####[facility] Hexscvhdzp60[address] [place] [phone]. Bhavani Barragan NRBC Normal [facility] Comment on above: Performed By: #### C OMID ####[facility] Ovaqmmboso8368 [place] [phone]. Bhavani Barragan PLT 362 103/ul Normal 150-450 [facility] Comment on above: Performed By: #### C OMID ####[facility] Dfornhahhm3294 [place] [phone]. Bhavani Barragan RBC 4.25 106/ul Normal 4.20-5.40 The [facility] Comment on above: Performed By: #### C OMID ####[facility] Jmcttivlko1535 [place] [phone]. Bhavani Barragan RDW 17.2 % Critically high 11.0-15.0 The [facility] Comment on above: Performed By: #### C OMID ####[facility] Rjmemjjhkp3784 [place], [place] [address]Nr. Bhavani Barragan SEG # 28.12 103/ul Critically high 1.40-6.50 [facility] Comment on above: Performed By: #### C OMID ####[facility] Welipifqfy2040 [place], [place] [address]Oy. Bhavani Barragan SEG % 91.0 % Critically high 43.0-75.0 The [facility] Comment on above: Performed By: #### C OMID ####[facility] Agujmvwvzm8239 [place] [address]Dr. Bhavani Barragan WBC 30.9 103/ul Critically high 4.0-11.0 [facility] Comment on above: Result Comment: repe ated Performed By: #### C OMID ####[facility] Gzummdkjzp[address] [place] [address]Dr[address] ABD/PELV W CONon 03-29-[address] ABD/PELV W CON Normal [facility] POINT OF CARE GLUCOSEon 03-18 Glucose [Mass/Vol] 102 mg/dL Normal 74-106 [facility] Comment on above: Performed By: #### P OCGLUC ####[facility] Firqgrgtie[address] [place], [place] [address]Dr. Bhavani Laurel Glucose [Mass/Vol] 100 mg/dL Normal 74-106 [facility] Comment on above: Performed By: #### P OCGLUC ####[facility] Igbesvwfsz8486 [place] [address]Dr. Bhavani aLurel Glucose [Mass/Vol] 132 mg/dL Critically high 74-106 [facility] Comment on above: Performed By: #### P OCGLUC ####[facility] Foilpqtzdq8025[address] [place], [place] [address]Dr. Bhavani Barragan Glucose [Mass/Vol] 130 mg/dL Critically high 74-106 [facility] Comment on above: Performed By: #### P OCGLUC ####[facility] Aqwixiuzae2554 [place] [address]Dr. Jayceeroxi Barragan PROF 14(COMP METB)on 022 Albumin [Mass/Vol] 2.1 g/dL Critically low 3.4-5.0 [facility] Comment on above: Performed By: #### C MP ####[facility] Ngojyefnhk0822 [place] [address]Dr. Bhavani Laurel Albumin/Globulin [Mass ratio] 0.6 {ratio} Normal [facility] Comment on above: Performed By: #### C MP ####[facility] Gjeleegmhw0963 [place] [address]Dr. Bhavani Barragan ALP [Catalytic activity/Vol] 277 U/L Critically high 46-116 [facility] Comment on above: Performed By: #### C MP ####[facility] [address]twjutmvmr[address] [place], [place] [address]Dr. Bhavani Barragan ALT [Catalytic activity/Vol] 90 U/L Critically high 14-59 The [facility] Comment on above: Performed By: #### C MP ####[facility] Yaqixphyfr32[address] [place], [place] [address]Dr. Bhavani Barragan Anion gap [Moles/Vol] 13.1 mmol/L Normal [facility] Comment on above: Performed By: #### C MP ####[facility] Sqntvzmadk[address] [place], [place] [address]Dr. Bhavani Barragan AST [Catalytic activity/Vol] 56 U/L Critically high 15-37 [facility] Comment on above: Performed By: #### C MP ####[facility] [address]feyykxli[address] [place], [place] [address]Dr. Bhavani Barragan Bilirubin [Mass/Vol] 4.1 mg/dL Critically high 0.2-1.0 [facility] Comment on above: Performed By: #### C MP ####[facility] Eqcxxyzzwl[address] [place], [place] [address]Dr. Bhavani Barragan Calcium [Mass/Vol] 7.9 mg/dL Critically low 8.5-10.[address] [facility] Comment on above: Performed By: #### C MP ####[facility] [address]vphcrkx[address] [place], [place] [address]Dr. Bhavani Laurel Chloride [Moles/Vol] 103 mmol/L Normal 98-107 [facility] Comment on above: Performed By: #### C MP ####[facility] Jotvbpvqcw[address] [place], [place] [address]Dr. Bhavani Barragan CO2 [Moles/Vol] 25.9 mmol/L Normal 21.0-32.0 [facility] Comment on above: Performed By: #### C MP ####[facility] [facility] [address]diqflxvez[address] [place], [place] [address]Dr. Bhavani Barragan Creatinine [Mass/Vol] 1.32 mg/dL Critically high 0.55-1.02 [facility] Comment on above: Performed By: #### C MP ####[facility] [address]jezct[address] [place] [address]Dr. Bhavani Barragan EGFR-AF MALDIVIAN 47 mL/min/1.73m2 Critically low >=60 [facility] Comment on above: Performed By: #### C MP ####[facility] Cyxkkfwqkm25[address] [place] [address]Dr. Bhavani Barragan EGFR-NON AF MALDIVIAN 39 mL/min/1.73m2 Critically low >=60 [facility] Comment on above: Performed By: #### C MP ####[facility] Ojornfqkcp[address] [place] [address]Dr. Bhavani Barragan Globulin (S) [Mass/Vol] 3.7 g/dL Normal [facility] Comment on above: Performed By: #### C MP ####[facility] Roomivlpqq87[address] [place] [address]Dr. Bhavani Barragan Glucose [Mass/Vol] 133 mg/dL Critically high 74-106 [facility] Comment on above: Performed By: #### C MP ####[facility] Kdqlampvzh59[address] [place] [address]Dr. Bhavani Barragan Potassium [Moles/Vol] 4.0 mmol/L Normal 3.5-5.1 [facility] Comment on above: Performed By: #### C MP ####[facility] Ogzrjvxtqy0[address] [place] [address]Dr. Bhavani Barragan Protein [Mass/Vol] 5.8 g/dL Critically low 6.4-8.[address] [facility] Comment on above: Performed By: #### C MP ####[facility] Vahdfleect[address] [place] [address]Dr. Bhavani Barragan Sodium [Moles/Vol] 138 mmol/L Normal 136-145 [facility] Comment on above: Performed By: #### C MP ####[facility] Hd[address]beh[address] [place], [place] [address]Dr. Bhavani Barragan Urea nitrogen [Mass/Vol] 19.0 mg/dL Critically high 7.0-18.0 The [facility] Comment on above: Performed By: #### C MP ####[facility] Bwkkbuyvkb[address] [place], [place] [address]Dr. Bhavani Barragan Urea nitrogen/Creatinine [Mass ratio] 14.4 mg/mg Normal The [facility] Comment on above: Performed By: #### C MP ####[facility] Jqccnetmpd7138[address] [place], [place] [address]Dr. Bhavani Barragan PROTIMEon 03-29-2022 INR Coag (PPP) [Relative time] 1.33 {INR} Normal The [facility] Comment on above: Performed By: #### P T, PTT ####[facility] Hkwzpliuf[address] [place], [place] [address]Dr. Bhavani Barragan INR GUIDELINES SEE BELOW Normal The [facility] Comment on above: Result Comment: WALKER RED INR: 2.0 - 3.0 CONDITIONS NOT LISTED BELOW 2.5 - 3.5 FOR PROSTHETIC HEART VALVE REPLACEMENT 2.5 - 3.5 RECURRENT THROMBOSIS Performed By: #### P T, PTT ####[facility] P[address]brvwjjc4[address] [place], [place] [address]Dr. Bhavani Barragan PT Coag (PPP) [Time] 14.1 s Critically high 9.0-11.6 The [facility] Comment on above: Performed By: #### P T, PTT ####[facility] Vytjklbyph[address] [place], [place] [address]Dr. Bhavani Barragan PTTon 03-29-2022 aPTT Coag (Bld) [Time] 36.0 s Normal 22.3-36.2 The [facility] Comment on above: Performed By: #### P T, PTT ####[facility] Rmjcmxkmnw0554[address] [place], [place] [address]Dr. Bhavani Barragan AMMONIAon 03-28-2022 Ammonia (P) [Moles/Vol] 22 umol/L Normal 11-32 [facility] Comment on above: Performed By: #### A MM ####[facility] Qiyzhokdji350[address] [place] [address]Dr. Bhavani Barragan CBC W MANUAL DIFFon 03-28-20 22 ANISOCYTOSIS 2+ Normal The [facility] Comment on above: Performed By: #### C BCMAN ####[facility] Xbnyfgueoy5[address] [place] [address]Dr. Bhavani Barragan ATYPICAL LYMPH # Normal The [facility] Comment on above: Performed By: #### C BCMAN ####[facility] Dfysszadsf80[address] [place] [address]Dr. Bhavani Barragan ATYPICAL LYMPH % Normal The [facility] Comment on above: Performed By: #### C BCMAN ####[facility] Znwfipvqsc057[address] [place], [place] [address]Dr. Bhavani Barragan BAND # 0.8 103/ul Critically high 0.0-0.3 [facility] Comment on above: Performed By: #### C BCJERSON ####[facility] Ssrwtqfirc[address] [place], [place] [address]Dr. Bhavani Barragan BAND % 3 % Normal 0-5 [facility] Comment on above: Performed By: #### C BCJERSON ####[facility] Mzbbphcinw417[address] [place], [place] [address]Dr. Bhavani Barragan BASOM # 0.00 103/ul Normal 0.00-0.10 [facility] Comment on above: Performed By: #### C BCJERSON ####[facility] Lcichqegrg1564[address] [place], [place] [address]Dr. Bhavani Barragan BASOM % 0.0 % Critically low 0.2-2.0 The [facility] Comment on above: Performed By: #### C BCJERSON ####[facility] Aawshyddsb9[address] [place] [address]Dr. Bhavani Barragan BLAST # Normal The [facility] Comment on above: Performed By: #### C BCMAN ####[facility] Lhggysufgi[address] [place], [place] [address]Dr. Bhavani Barragan BLAST % Normal The [facility] Comment on above: Performed By: #### C BCJERSON ####[facility] Dbojhxblez[address] [place], [place] [address]Dr. Bhavani Barragan CORRECTED WBC Normal 4.0-11.0 The [facility] Comment on above: Performed By: #### C OMID ####[facility] Pltailaijb85[address] [place] [phone]. Bhavani Barragan EOS # 0.00 103/ul Normal 0.00-0.70 The [facility] Comment on above: Performed By: #### C OMID ####[facility] Iemnfbtcwo1652 [place] [phone]. Bhavani Barragan EOS% 0.0 % Critically low 0.9-7.0 The [facility] Comment on above: Performed By: #### C OMID ####[facility] Ishktwxzam32[address] [place] [address]Dr. Bhavani Barragan HCT 38.9 % Normal 36.0-48.0 [facility] Comment on above: Performed By: #### C OMID ####[facility] Byxkikkweq7[address] [place] [address]Dr. Bhavani Barragan HGB 11.9 g/dl Critically low 12.0-16.0 The [facility] Comment on above: Performed By: #### C OMID ####[facility] Tjlcrfhbyu58[address] [place] [phone]. Bhavani Barragan LYMPHM # 0.78 103/ul Critically low 1.20-3.80 The [facility] Comment on above: Performed By: #### C OMID ####[facility] Mgevvohomp2907 [place] [id number]. Bhavani Barragan LYMPHM% 3.0 % Critically low 20.5-60.0 The [facility] Comment on above: Performed By: #### C OMID ####[facility] Bvmouvdpnr6698 [place] [phone]. Bhavani Barragan MCH 29.8 pg Normal 26.7-34.0 The [facility] Comment on above: Performed By: #### C OMID ####[facility] Ttyxfjssam6841 [place] [phone]. Bhavani Barragan MCHC 30.6 g/dl Normal 29.9-35.2 The [facility] Comment on above: Performed By: #### C OMID ####[facility] Bdnkobkrmn6[address] [place] [address]Dr. Bhavani Barragan MCV 97.3 fL Normal 81.0-99.0 [facility] Comment on above: Performed By: #### C OMID ####[facility] Oshmstophe8358 [place] [phone]. Bhavani Barragan METAMYELOCYTE # Normal The [facility] Comment on above: Performed By: #### C OMID ####[facility] Qjqyyplkaa8940 [place] [phone]. Bhavani Barragan METAMYELOCYTE % Normal The [facility] Comment on above: Performed By: #### C OIMD ####[facility] E[address]ssvcefk[address] [place], [place] [address]Dr. Bhavani Barragan MONOM# 0.78 103/ul Normal 0.30-0.80 [facility] Comment on above: Performed By: #### C OMID ####[facility] Cxokvnpxgz9[address] [place], [place] [address]Dr. Bhavani Barragan MONOM% 3.0 % Normal 1.7-12.0 [facility] Comment on above: Performed By: #### C OMID ####[facility] Bplrzqzbuk2759 [place] [phone]. Bhavani Barragan MPV 10.6 fL Normal 9.5-13.5 The [facility] Comment on above: Performed By: #### C BCJERSON ####[facility] Thsboilkhb[address] [place], [place] [address]Dr. Bhavani Barragan MYELOCYTE # Normal The [facility] Comment on above: Performed By: #### C OMID ####[facility] Jyxogfwmpg[address] [place], [place] [address]Dr. Bhavani Barragan MYELOCYTE % Normal [facility] Comment on above: Performed By: #### C OMID ####[facility] Whlzvsmflo[address] [place], [place] [address]Dr. Bhavani Barragan NRBC Normal [facility] Comment on above: Performed By: #### C OMID ####[facility] Abyyerrher2402 [place], [place] [address]Qh. Bhavani Laurel PLT 402 103/ul Normal 150-450 [facility] Comment on above: Performed By: #### C OMID ####[facility] Ekyokbanwy[address] [place], [place] [address]Hh. Bhavani Barragan RBC 4.00 106/ul Critically low 4.20-5.40 [facility] Comment on above: Performed By: #### C OMID ####[facility] Sbipbpxfwj9735 [place], [place] [address]Wd. Bhavani Barragan RDW 16.7 % Critically high 11.0-15.0 [facility] Comment on above: Performed By: #### C OMID ####[facility] Jwxopmendy3637 [place], [place] [address]Tt. Bhavani Barragan SEG # 23.66 103/ul Critically high 1.40-6.50 [facility] Comment on above: Performed By: #### C OMID ####[facility] Irxmobjeok5391 [place], [place] [address]Od. Bhavani Barragan SEG % 91.0 % Critically high 43.0-75.0 [facility] Comment on above: Performed By: #### C OMID ####[facility] Vyqmxgzqup0385 [place], [place] [address]Ad. Bhavani Barragan WBC 26.0 103/ul Critically high 4.0-11.0 [facility] Comment on above: Performed By: #### C OMID ####[facility] Esayztrirr7638 [place], [place] [address]YqLydia Barragan PROF 14(COMP METB)on 022 Albumin [Mass/Vol] 2.1 g/dL Critically low 3.4-5.[address] [facility] Comment on above: Performed By: #### C ALISTAIR ####[facility] Mppxumncwc4646 [place], [place] [address]Zr. Bhavani Barragan Albumin/Globulin [Mass ratio] 0.6 {ratio} Normal [facility] Comment on above: Performed By: #### C MP ####[facility] Uvxaqtssrm7[address] [place] [address]Dr. Bhavani Barragan ALP [Catalytic activity/Vol] 235 U/L Critically high 46-116 [facility] Comment on above: Performed By: #### C MP ####[facility] Xnaxzmbniv6629 [place] [address]Dr. Bhavani Barragan ALT [Catalytic activity/Vol] 112 U/L Critically high 14-59 [facility] Comment on above: Performed By: #### C MP ####[facility] Ycozxsloat8007 [place] [address]Dr. Bhavani Laurel Anion gap [Moles/Vol] 12.3 mmol/L Normal [facility] Comment on above: Performed By: #### C MP ####[facility] Koyviymcrx2083 [place] [address]Dr. Bhavani Laurel AST [Catalytic activity/Vol] 57 U/L Critically high 15-37 [facility] Comment on above: Performed By: #### C MP ####[facility] Fgoyifscwz[address] [place], [place] [address]Dr. Bhavani Laurel Bilirubin [Mass/Vol] 1.6 mg/dL Critically high 0.2-1.0 [facility] Comment on above: Performed By: #### C MP ####[facility] Dgrcjxpvpn[address] [place], [place] [address]Dr. Bhavani Barragan Calcium [Mass/Vol] 7.6 mg/dL Critically low 8.5-10.[address] [facility] Comment on above: Performed By: #### C MP ####[facility] Tkpgijvgeb[address] [place] [address]Dr. Bhavani Barragan Chloride [Moles/Vol] 104 mmol/L Normal 98-107 [facility] Comment on above: Performed By: #### C MP ####[facility] Mjvbxlsadn6871 [place] [address]Dr. Bhavani Barragan CO2 [Moles/Vol] 25.5 mmol/L Normal 21.0-32.0 [facility] Comment on above: Performed By: #### C MP ####[facility] Uasusvtvbx9537 [place] [address]Dr. Bhavani Barragan Creatinine [Mass/Vol] 1.28 mg/dL Critically high 0.55-1.02 [facility] Comment on above: Performed By: #### C MP ####[facility] Pmiqbkddyd2287 [place] [address]Dr. Bhavani Barragan EGFR-AF MALDIVIAN 48 mL/min/1.73m2 Critically low >=60 [facility] Comment on above: Performed By: #### C MP ####[facility] Jwhufybegl0185 [place] [address]Dr. Bhavani Laurel EGFR-NON AF MALDIVIAN 40 mL/min/1.73m2 Critically low >=60 [facility] Comment on above: Performed By: #### C MP ####[facility] Zgmxujlsyi026[address] [place], [place] [address]Dr. Bhavani Laurel Globulin (S) [Mass/Vol] 3.7 g/dL Normal [facility] Comment on above: Performed By: #### C MP ####[facility] Fcurhxkuhh24[address] [place], [place] [address]Dr. Bhavani Barragan Glucose [Mass/Vol] 69 mg/dL Critically low 74-[address] [facility] Comment on above: Performed By: #### C MP ####[facility] Izvoksqzpz6398 [place] [address]Dr. Bhavani Laurel Potassium [Moles/Vol] 3.8 mmol/L Normal 3.5-5.1 [facility] Comment on above: Performed By: #### C MP ####[facility] Ebutmdyyvm[address] [place], [place] [address]Dr. Bhavani Laurel Protein [Mass/Vol] 5.8 g/dL Critically low 6.4-8.[address] [facility] Comment on above: Performed By: #### C MP ####[facility] Qhgetraygq9730 [place] [address]Dr. Jayceeroxi Barragan Sodium [Moles/Vol] 138 mmol/L Normal 136-145 [facility] Comment on above: Performed By: #### C MP ####[facility] Bfrzjmiasx9121 [place] [address]Dr. Bhavani Laurel Urea nitrogen [Mass/Vol] 18.0 mg/dL Normal 7.0-18.0 [facility] Comment on above: Performed By: #### C MP ####[facility] Mljmohxvyo12[address] [place], [place] [address]Dr. Bhavani Barragan Urea nitrogen/Creatinine [Mass ratio] 14.1 mg/mg Normal The [facility] Comment on above: Performed By: #### C MP ####[facility] Rnejxiftzg9329[address] [place], [place] [address]Dr. Jayceeroxi Barragan PROTIMEon 03-28-2022 INR Coag (PPP) [Relative time] 1.38 {INR} Normal The [facility] Comment on above: Performed By: #### P T, PTT ####[facility] Ujoxlplsea04[address] [place], [place] [address]Dr. Jayceeroxi Barragan INR GUIDELINES SEE BELOW Normal The [facility] Comment on above: Result Comment: WALKER RED INR: 2.0 - 3.0 CONDITIONS NOT LISTED BELOW 2.5 - 3.5 FOR PROSTHETIC HEART VALVE REPLACEMENT 2.5 - 3.5 RECURRENT THROMBOSIS Performed By: #### P T, PTT ####[facility] Ebxfaisrjo8618[address] [place], [place] [address]Dr. Bhavani Barragan PT Coag (PPP) [Time] 14.6 s Critically high 9.0-11.6 The [facility] Comment on above: Performed By: #### P T, PTT ####[facility] Gcgkkicmcy[address] [place], [place] [address]Dr. Jayceeroxi Barragan PTTon 03-28-2022 aPTT Coag (Bld) [Time] 36.6 s Critically high 22.3-36.2 The [facility] Comment on above: Performed By: #### P T, PTT ####[facility] Vwheadqsbr212[address] [place], [place] [address]Dr. Bhavani Barragan RESPIRATORY PANEL PLUSon Adenovirus Not detected Normal NOT DETECTED The [facility] Comment on above: Performed By: #### R SPLUS ####[facility] Dngfugotqs26[address] [place] [address]Dr. Bhavani Barragan B. Parapertusis Not detected Normal NOT DETECTED The [facility] Comment on above: Performed By: #### R SPLUS ####[facility] Wuujefigvb[address] [place], [place] [address]Dr. Bhavani Barragan B. Pertussis Not detected Normal NOT DETECTED The [facility] Comment on above: Performed By: #### R SPLUS ####[facility] Ofrlcoakix9[address] [place], [place] [address]Dr. Bhavani Barragan Chlamydia Pneumoniae Not detected Normal NOT DETECTED The [facility] Comment on above: Performed By: #### R SPLUS ####[facility] Brkjufrffl137[address] [place], [place] [address]Dr. Bhavani Barragan Coronavirus 229E Not detected Normal NOT DETECTED The [facility] Comment on above: Performed By: #### R SPLUS ####[facility] Csyjibvjzr7[address] [place], [place] [address]Dr. roxi Barragan Coronavirus HKU1 Not detected Normal NOT DETECTED The [facility] Comment on above: Performed By: #### R SPLUS ####[facility] Cxtbptwdmj98[address] [place], [place] [address]Dr. roxi Barragan Coronavirus NL63 Not detected Normal NOT DETECTED The [facility] Comment on above: Performed By: #### R SPLUS ####[facility] Qorvnixkmg6627[address] [place], [place] [address]Dr. Bhavani Barragan Coronavirus OC43 Not detected Normal NOT DETECTED The [facility] Comment on above: Performed By: #### R SPLUS ####[facility] Cgeextmrfl430[address] [place], [place] [address]Dr. Bhavani Barragan Influenza A H1 2009 Not detected Normal NOT DETECTED [facility] Comment on above: Performed By: #### R SPLUS ####[facility] Dplolrtipw47[address] [place], [place] [address]Dr. Jayceeroxi Barragan Influenza A H3 Not detected Normal NOT DETECTED The [facility] Comment on above: Performed By: #### R SPLUS ####[facility] Rysbchdrxk8038 [place] [phone]. Bhavani Barragan Influenza B Not detected Normal NOT DETECTED The [facility] Comment on above: Performed By: #### R SPLUS ####[facility] Phmtxmtsqd3741 [place] [address]Dr. Jayceeroxi Barragan Metapneumovirus Not detected Normal NOT DETECTED The [facility] Comment on above: Performed By: #### R SPLUS ####[facility] Muqggymqqf8416 [place] [address]Dr. Jayceeroxi Barragan Mycoplas. Pneumoniae Not detected Normal NOT DETECTED The [facility] Comment on above: Performed By: #### R SPLUS ####[facility] Eshafnsimx[address] [place], [place] [address]Dr. Bhavani Barragan Parainfluenza 1 Not detected Normal NOT DETECTED The [facility] Comment on above: Performed By: #### R SPLUS ####[facility] Olszvtaywt[address] [place], [place] [address]Dr. Jayceeroxi Barragan Parainfluenza 2 Not detected Normal NOT DETECTED [facility] Comment on above: Performed By: #### R SPLUS ####[facility] Gnjtpygobi84[address] [place], [place] [address]Dr. Jayceeroxi Barragan Parainfluenza 3 Not detected Normal NOT DETECTED The [facility] Comment on above: Performed By: #### R SPLUS ####[facility] Gzegsdjrtu119[address] [place], [place] [address]Dr. Jayceeroxi Barragan Parainfluenza 4 Not detected Normal NOT DETECTED The [facility] Comment on above: Performed By: #### R SPLUS ####[facility] Nbjfmqspyj2823 [place] [address]Dr. Bhavani Barragan Rhino/Enterovirus Not detected Normal NOT DETECTED The [facility] Comment on above: Performed By: #### R SPLUS ####[facility] Ktbfzwuwbs[address] [place], [place] [address]Dr. Bhavani Barragan RP2 Header 1 RESPIRATORY PANEL: VIRUSES Normal [facility] Comment on above: Performed By: #### R SPLUS ####[facility] [address]jywmbmsk[address] [place], [place] [address]Dr. Bhavani Barragan RP2 Header 2 RESPIRATORY PANEL: BACTERIA Normal The [facility] Comment on above: Performed By: #### R SPLUS ####[facility] Ejyofxnmiw8[address] [place], [place] [address]Dr. Bhavani Barragan RSV Not detected Normal NOT DETECTED The [facility] Comment on above: Performed By: #### R SPLUS ####[facility] Nhzhmiaxsy410[address] [place], [place] [address]Dr. Bhavani Barragan SARS-CoV-2 (COVID-19) RNA MATTEHW+probe Ql (Unsp spec) Not detected Normal NOT DETECTED The [facility] Comment on above: Performed By: #### R SPLUS ####[facility] Mkfhfmvcid22[address] [place], [place] [address]Dr. Bhavani Barragan AMMONIAon 03-27-2022 Ammonia (P) [Moles/Vol] 22 umol/L Normal 11-32 [facility] Comment on above: Performed By: #### A MM ####[facility] Aupnitgcyr[address] [place], [place] [address]Dr. Bhavani Barragan BLOOD GASES BTYon 03-27-2022 02 MODE NASAL CANNULA Normal The [facility] Comment on above: Performed By: #### A BG ####[facility] O[address]flgxudfj25[address] [place], [place] [address]Dr. Bhavani Barragan ALLENS TEST Positive Normal The [facility] Comment on above: Performed By: #### A BG ####[facility] Egikgtetci9138[address] [place], [place] [address]Dr. Bhavani Barragan Base excess Calc (Bld) [Moles/Vol] 1.4 mmol/L Normal -2.0-2.0 The [facility] Comment on above: Performed By: #### A BG ####[facility] Najhaxbrgk[address] [place], [place] [address]Dr. Bhavani Barragan BIPAP PRESSURE Normal The [facility] Comment on above: Performed By: #### A BG ####[facility] Tuhxylxxxz908[address] [place], [place] [address]Dr. Bhavani Barragan CO2 [Moles/Vol] 50.8 mmol/L Critically high 23.0-28.0 The [facility] Comment on above: Performed By: #### A BG ####[facility] Sqlgxqbclx8736 [place] [address]Dr. Bhavani Barragan CPAP Normal [facility] Comment on above: Performed By: #### A BG ####[facility] Orcnfkgxby32[address] [place], [place] [address]Dr. Bhavani Barragan FIO2 Normal [facility] Comment on above: Performed By: #### A BG ####[facility] Kmqyzffjov[address] [place], [place] [address]Dr. Bhavani Barragan HCO3 (Bld) [Moles/Vol] 25.6 mmol/L Normal 22.0-26.0 The [facility] Comment on above: Performed By: #### A BG ####[facility] Hsvumdlvuj47[address] [place], [place] [address]Dr. Bhavani Barragan LPM 5 Normal [facility] Comment on above: Performed By: #### A BG ####[facility] [address]jeyuftewt[address] [place], [place] [address]Dr. Bhavani Barragan MINUTE VOLUME Normal The [facility] Comment on above: Performed By: #### A BG ####[facility] Qmcmgrubku[address] [place], [place] [address]Dr. Bhavani Barragan Oxygen (Bld) [Partial pressure] 56.6 mm[Hg] Critically low 80.0-100.0 The [facility] Comment on above: Performed By: #### A BG ####[facility] Cejinzvitg17[address] [place], [place] [address]Dr. Bhavani Barragan Oxygen saturation in Blood 91.3 % Critically low 95.0-100.0 The [facility] Comment on above: Performed By: #### A BG ####[facility] Wcskpcgoxv5[address] [place], [place] [address]Dr. Bhavani Barragan PCO2 36.1 mmHg Normal 35.0-45.0 [facility] Comment on above: Performed By: #### A BG ####[facility] [address]ayxahwoo[address] [place], [place] [address]Dr. Bhavani Barragan PEEP [facility] Comment on above: Performed By: #### A BG ####[facility] [address]dvehiqqi[address] [place] [address]Dr. Bhavani Barragan pH (Bld) 7.454 [pH] Critically high 7.350-7.450 [facility] Comment on above: Performed By: #### A BG ####[facility] Opyumttlvw[address] [place] [address]Dr. Bhavani Barragan PIP [facility] Comment on above: Performed By: #### A BG ####[facility] [address]fdisisgyh[address] [place] [address]Dr. Bhavani Barragan PS [facility] Comment on above: Performed By: #### A BG ####[facility] Dphhhugref7[address] [place] [address]Dr. Bhavani Barragan PUNCTURE SITE LR [facility] Comment on above: Performed By: #### A BG ####[facility] Lubtuycejy35[address] [place] [address]Dr. Bhavani Barragan RATE [facility] Comment on above: Performed By: #### A BG ####[facility] Jrgkmzessz0194 [place] [address]Dr. Bhavani Barragan VENT MODE [facility] Comment on above: Performed By: #### A BG ####[facility] Wwqaejathj0595 [place] [address]Dr. Bhavani Barragan [place] [facility] Comment on above: Performed By: #### A BG ####[facility] Tqottqegux2187 [place] [address]Dr. Bhavani Barragan CBC W MANUAL DIFFon 03-27-20 22 ANISOCYTOSIS 2+ [facility] Comment on above: Performed By: #### C BCMAN ####[facility] Cnaddpxkgy36[address] [place] [address]Dr. Bhavani Barragan ATYPICAL LYMPH # Normal [facility] Comment on above: Performed By: #### C BCMAN ####[facility] Tuvkmsjbdq4270 [place] [address]Dr. Bhavani Barragan ATYPICAL LYMPH % Normal [facility] Comment on above: Performed By: #### C BCMAN ####[facility] Viluvyzglv2339 [place] [phone]. Bhavani Barragan BAND # 1.5 103/ul Critically high 0.0-0.3 The [facility] Comment on above: Performed By: #### C BCMAN ####[facility] Owewipunzt2862 [place] [phone]. Yilan Barragan BAND % 5 % Normal 0-5 The [facility] Comment on above: Performed By: #### C BCMAN ####[facility] Jvggzdojul0937 [place] [address]Dr. Bhavani Barragan BASOM # 0.00 103/ul Normal 0.00-0.10 The [facility] Comment on above: Performed By: #### C BCMAN ####[facility] Wvkzmsekiw8369 [place] [address]Dr. Bhavani Barragan BASOM % 0.0 % Critically low 0.2-2.0 The [facility] Comment on above: Performed By: #### C BCJERSON ####[facility] Ujrjfwyrbt1042 [place] [address]Dr. Bhavani Barragan BLAST # Normal [facility] Comment on above: Performed By: #### C BCJERSON ####[facility] Zwajpgwsjk9410 [place] [address]Dr. Bhavani Barragan BLAST % Normal The [facility] Comment on above: Performed By: #### C BCMAN ####[facility] Vwkcflqjfy3249 [place] [phone]. Bhavani Barragan CORRECTED WBC Normal 4.0-11.0 The [facility] Comment on above: Performed By: #### C BCMAN ####[facility] Rpphraveya1646 [place] [phone]. Bhavani Barragan EOS # 0.00 103/ul Normal 0.00-0.70 The [facility] Comment on above: Performed By: #### C BCMAN ####[facility] Yevpsufqtv6480 [place] [phone]. Bhavani Barragan EOS% 0.0 % Critically low 0.9-7.0 The [facility] Comment on above: Performed By: #### C OMID ####[facility] Wymbkpalyp0408 [place] [phone]. Bhavani Barragan HCT 41.4 % Normal 36.0-48.0 The [facility] Comment on above: Performed By: #### C OMID ####[facility] Abhjfydszi9716 [place] [phone]. Bhavani Barragan HGB 13.0 g/dl Normal 12.0-16.0 The [facility] Comment on above: Performed By: #### C OMID ####[facility] Houhvhariu53[address] [place] [address]Dr. Bhavani Barragan LYMPHM # 0.60 103/ul Critically low 1.20-3.80 The [facility] Comment on above: Performed By: #### Jany ANNE ####[facility] Bdkapusaqy6257 [place] [address]Dr. Bhavani Barragan LYMPHM% 2.0 % Critically low 20.5-60.0 The [facility] Comment on above: Performed By: #### Jany ANNE ####[facility] Gexalftjjk4403 [place] [address]Dr. Bhavani Barragan MCH 30.1 pg Normal 26.7-34.0 The [facility] Comment on above: Performed By: #### Jany ANNE ####[facility] Pbflgtvtxl3539 [place] [phone]. Bhavani Barragan MCHC 31.4 g/dl Normal 29.9-35.2 The [facility] Comment on above: Performed By: #### C OMID ####[facility] Hksmcsjliz[address] [place], [place] [address]Dr. Bhavani Barragan MCV 95.8 fL Normal 81.0-99.0 The [facility] Comment on above: Performed By: #### C OMID ####[facility] Iicslclwpc[address] [place], [place] [address]Dr. Bhavani Barragan METAMYELOCYTE # Normal The [facility] Comment on above: Performed By: #### Jany ANNE ####[facility] Dozozvcjgd1925 [place] [phone]. Bhavani Barragan METAMYELOCYTE % Normal [facility] Comment on above: Performed By: #### C OMID ####[facility] Cyppwkajro2390 [place] [phone]. Bhavani Barragan MONOM# 0.91 103/ul Critically high 0.30-0.80 [facility] Comment on above: Performed By: #### C OMID ####[facility] Gycjqvcgdr4035 [place] [phone]. Bhavani Barragan MONOM% 3.0 % Normal 1.7-12.0 [facility] Comment on above: Performed By: #### C OMID ####[facility] Hfwckrbdwv8098 [place] [phone]. Bhavani Laurel MPV 10.4 fL Normal 9.5-13.5 [facility] Comment on above: Performed By: #### Jany ANNE ####[facility] Unyrofjeva6175 [place] [phone]. Bhavani Barragan MYELOCYTE # Normal The [facility] Comment on above: Performed By: #### Jany ANNE ####[facility] Uahgphgcbo0933 [place] [phone]. Bhavani Barragan MYELOCYTE % Normal The [facility] Comment on above: Performed By: #### Jany ANNE ####[facility] Rdaevcnslg7731 [place] [phone]. Bhavani Barragan NRBC Normal [facility] Comment on above: Performed By: #### Jany ANNE ####[facility] Zisoqvrocd6593 [place] [phone]. Jayceeroxi Barragan PLT 431 103/ul Normal 150-450 The [facility] Comment on above: Performed By: #### C OMID ####[facility] Uqonfihxea6760 [place] [phone]. Bhavani Barragan RBC 4.32 106/ul Normal 4.20-5.40 [facility] Comment on above: Performed By: #### C BCJERSON ####[facility] Gdffpojejy7283 [place], [place] [address]Op. Bhavani Laurel RDW 16.4 % Critically high 11.0-15.0 [facility] Comment on above: Performed By: #### C OMID ####[facility] Rmomhdnwjt0401 [place], [place] [address]Bd. Jayceeroxi Laurel SEG # 27.18 103/ul Critically high 1.40-6.50 [facility] Comment on above: Performed By: #### C BCMAN ####[facility] Jdvvwcqjhu9926 [place] [phone]. Bhavani Laurel SEG % 90.0 % Critically high 43.0-75.0 [facility] Comment on above: Performed By: #### C BCJERSON ####[facility] Yxywvpeorn4757 [place] [phone]. Bhavani Barragan WBC 30.2 103/ul Critically high 4.0-11.0 [facility] Comment on above: Performed By: #### C BCJERSON ####[facility] Tzncltpeiv9406 [place] [phone]. Bhavani Barragan CTA CHEST WO W CONon 022 CTA CHEST WO W CON Normal [facility] POINT OF CARE GLUCOSEon 03-18 0-2021 Glucose [Mass/Vol] 94 mg/dL Normal 74-106 [facility] Comment on above: Performed By: #### P OCGLUC ####[facility] Qbfkmnlioq8564 [place] [phone]. Bhavani Barragan Glucose [Mass/Vol] 131 mg/dL Critically high 74-106 [facility] Comment on above: Performed By: #### P OCGLUC ####[facility] Ilxwomgslx5866 [place] [phone]. Bhavani Barragan Glucose [Mass/Vol] 134 mg/dL Critically high 74-106 [facility] Comment on above: Performed By: #### P OCGLUC ####[facility] Kckapawrdc3964 [place] [phone]. Bhavani Barragan PROF 14(COMP METB)on 022 Albumin [Mass/Vol] 2.4 g/dL Critically low 3.4-5.[address] [facility] Comment on above: Performed By: #### C MP ####[facility] Djglljcpqq6522 [place] [address]Dr. Bhavani Barragan Albumin/Globulin [Mass ratio] 0.6 {ratio} Normal [facility] Comment on above: Performed By: #### C MP ####[facility] Jyicictxwe0976 [place] [address]Dr. Bhavani Barragan ALP [Catalytic activity/Vol] 306 U/L Critically high 46-116 [facility] Comment on above: Performed By: #### C MP ####[facility] Zzzcwoluts[address] [place], [place] [address]Dr. Bhavani Barragan ALT [Catalytic activity/Vol] 152 U/L Critically high 14-59 [facility] Comment on above: Performed By: #### C MP ####[facility] Pyxjaaksor450[address] [place], [place] [address]Dr. Bhavani Barragan Anion gap [Moles/Vol] 8.1 mmol/L Normal [facility] Comment on above: Performed By: #### C MP ####[facility] Fjqvuqzlgx[address] [place], [place] [address]Dr. Bhavani Barragan AST [Catalytic activity/Vol] 98 U/L Critically high 15-37 [facility] Comment on above: Performed By: #### C MP ####[facility] Yprcmsumes9[address] [place], [place] [address]Dr. Bhavani Barragan Bilirubin [Mass/Vol] 2.7 mg/dL Critically high 0.2-1.0 [facility] Comment on above: Performed By: #### C MP ####[facility] Jfdnkdlwlx[address] [place], [place] [address]Dr. Bhavani Barragan Calcium [Mass/Vol] 7.4 mg/dL Critically low 8.5-10.[address] [facility] Comment on above: Performed By: #### C MP ####[facility] Sxvortrvld[address] [place], [place] [address]Dr. Bhavani Barragan Chloride [Moles/Vol] 103 mmol/L Normal 98-107 [facility] Comment on above: Performed By: #### C MP ####[facility] Pyxjmulqzu4346 [place] [address]Dr. Bhavani Barragan CO2 [Moles/Vol] 24.7 mmol/L Normal 21.0-32.0 [facility] Comment on above: Performed By: #### C MP ####[facility] Zcdnkkjtvz0835 [place] [address]Dr. Bhavani Barragan Creatinine [Mass/Vol] 1.07 mg/dL Critically high 0.55-1.02 [facility] Comment on above: Performed By: #### C MP ####[facility] Sxdxggqtbd6222 [place] [address]Dr. Bhavani Laurel EGFR-AF MALDIVIAN 60 mL/min/1.73m2 Normal >=60 [facility] Comment on above: Performed By: #### C MP ####[facility] Vwrceghysh7174 [place] [address]Dr. Bhavani Barragan EGFR-NON AF MALDIVIAN 49 mL/min/1.73m2 Critically low >=60 [facility] Comment on above: Performed By: #### C MP ####[facility] Mamxtrvdoo1888 [place] [address]Dr. Bhavani Laurel Globulin (S) [Mass/Vol] 3.8 g/dL Normal [facility] Comment on above: Performed By: #### C MP ####[facility] Jmpvsvsdgx5693 [place] [address]Dr. Bhavani Laurel Glucose [Mass/Vol] 140 mg/dL Critically high 74-106 [facility] Comment on above: Performed By: #### C MP ####[facility] Byfhajnxxr2992 [place] [address]Dr. Bhavani Laurel Potassium [Moles/Vol] 3.8 mmol/L Normal 3.5-5.1 The [facility] Comment on above: Performed By: #### C MP ####[facility] Tpcuznsrfv6295 [place] [address]Dr. Bhavani Barragan Protein [Mass/Vol] 6.2 g/dL Critically low 6.4-8.[address] [facility] Comment on above: Performed By: #### C MP ####[facility] Giwisbgifm0458 [place] [address]Dr. Bhavani Barragan Sodium [Moles/Vol] 132 mmol/L Critically low 136-[address] [facility] Comment on above: Performed By: #### C MP ####[facility] Awffscxzna[address] [place], [place] [address]Dr. Bhavani Barragan Urea nitrogen [Mass/Vol] 15.0 mg/dL Normal 7.0-18.0 [facility] Comment on above: Performed By: #### C MP ####[facility] Lunozdynxl7[address] [place], [place] [address]Dr. Bhavani Barragan Urea nitrogen/Creatinine [Mass ratio] 14.0 mg/mg Normal [facility] Comment on above: Performed By: #### C MP ####[facility] Jdjqnwvufw4[address] [place], [place] [address]Dr. Bhavani Barragan PROTIMEon 03-27-2022 INR Coag (PPP) [Relative time] 1.37 {INR} Normal [facility] Comment on above: Performed By: #### P T, PTT ####[facility] Yemuhldoax020[address] [place], [place] [address]Dr. Bhavani Barragan INR GUIDELINES SEE BELOW Normal The [facility] Comment on above: Result Comment: WALKER RED INR: 2.0 - 3.0 CONDITIONS NOT LISTED BELOW 2.5 - 3.5 FOR PROSTHETIC HEART VALVE REPLACEMENT 2.5 - 3.5 RECURRENT THROMBOSIS Performed By: #### P T, PTT ####[facility] Rudzbwtarz[address] [place], [place] [address]Dr. Bhavani Barragan PT Coag (PPP) [Time] 14.5 s Critically high 9.0-11.6 [facility] Comment on above: Performed By: #### P T, PTT ####[facility] Akzxwgzevc[address] [place], [place] [address]Dr. Bhavani Barragan PTTon 03-27-2022 aPTT Coag (Bld) [Time] 34.2 s Normal 22.3-36.2 [facility] Comment on above: Performed By: #### P T, PTT ####[facility] Kboljltbpa6[address] [place], [place] [address]Dr. Bhavani Barragan XR ABD FLAT_UPon 03-27-2022 XR ABD FLAT_UP Normal The [facility] XR CHEST 1 Von 03-27-2022 XR CHEST 1 V Normal [facility] AMMONIAon 03-26-2022 Ammonia (P) [Moles/Vol] 26 umol/L Normal 11-32 [facility] Comment on above: Performed By: #### A MM ####[facility] Nsjlvrriqz5[address] [place], [place] [address]Dr. Bhavani Laurel CBC AUTO DIFFon 03-26-2022 BASO # 0.2 103/ul Critically high 0.0-0.1 [facility] Comment on above: Performed By: #### C BC ####[facility] Qewqgbccft[address] [place], [place] [address]Dr. Bhavani Barragan Basophils/100 WBC (Bld) 0.8 % Normal 0.2-2.0 [facility] Comment on above: Performed By: #### C BC ####[facility] Tbztwcrbwl8[address] [place], [place] [address]Dr. Bhavani Barragan EO # 0.0 103/ul Normal 0.0-0.7 [facility] Comment on above: Performed By: #### C BC ####[facility] Zlaoxgqwhq[address] [place], [place] [address]Dr. Bhavani Barragan Eosinophils/100 WBC (Bld) 0.1 % Critically low 0.9-7.0 [facility] Comment on above: Performed By: #### C BC ####[facility] Odydstaulb4[address] [place], [place] [address]Dr. Bhavani Barragan Erythrocyte distribution width (RBC) [Ratio] 16.0 % Critically high 11.0-15.0 [facility] Comment on above: Performed By: #### C BC ####[facility] Vrftynfwhg[address] [place], [place] [address]Dr. Bhavani Barragan Hematocrit (Bld) [Volume fraction] 43.9 % Normal 36.0-48.0 [facility] Comment on above: Performed By: #### C BC ####[facility] Cojnqogweu0881 [place] [address]Dr. Bhavani Barragan Hemoglobin (Bld) [Mass/Vol] 13.6 g/dL Normal 12.0-16.0 [facility] Comment on above: Performed By: #### C BC ####[facility] Yhdjdrueye2598 [place] [address]Dr. Bhavani Barragan IG # 0.78 10e3/ul Critically high 0.00-0.03 [facility] Comment on above: Performed By: #### C BC ####[facility] Wotojgsrqg6162 [place] [address]Dr. Bhavani Laurel IG % 3.5 % Critically high 0.0-0.5 The [facility] Comment on above: Performed By: #### C BC ####[facility] Zetfogohry6078 [place] [address]Dr. Bhavani Laurel LYMPH # 0.9 103/ul Critically low 1.2-3.8 The [facility] Comment on above: Performed By: #### C BC ####[facility] Xdgmojokfk1712 [place] [address]Dr. Bhavani Barragan Lymphocytes/100 WBC (Bld) 3.9 % Critically low 20.5-60.0 [facility] Comment on above: Performed By: #### C BC ####[facility] Fgrspoirjf5354 [place] [address]Dr. Bhavani Laurel MANUAL DIFF REQ NO Normal [facility] Comment on above: Performed By: #### C BC ####[facility] Sjjncelaci2983 [place] [address]Dr. Bhavani Barragan MCH (RBC) [Entitic mass] 30.0 pg Normal 26.7-34.0 [facility] Comment on above: Performed By: #### C BC ####[facility] [address]izbibfqd4[address] [place], [place] [address]Dr. Bhavani Barragan MCHC (RBC) [Mass/Vol] 31.0 g/dL Normal 29.9-35.2 [facility] Comment on above: Performed By: #### C BC ####[facility] Bbvocrmwxf6379 [place] [phone]. Bhavani Barragan MCV (RBC) [Entitic vol] 96.9 fL Normal 81.0-99.0 [facility] Comment on above: Performed By: #### C BC ####[facility] Halprykdaw4621 [place] [address]Dr. Bhavani Laurel MONO # 0.6 103/ul Normal 0.3-0.8 [facility] Comment on above: Performed By: #### C BC ####[facility] Xsjpabptcg2312 [place] [address]Dr. Jayceeroxi Barragan Monocytes/100 WBC (Bld) 2.7 % Normal 1.7-12.0 [facility] Comment on above: Performed By: #### C BC ####[facility] Tubyjamque0135 [place] [address]Dr. Bhavani Laurel NEUT # 20.1 103/ul Critically high 1.4-6.5 [facility] Comment on above: Performed By: #### C BC ####[facility] Mclouwqxhw6954 [place] [address]Dr. Bhavani Laurel Neutrophils/100 WBC (Bld) 89.0 % Critically high 43.0-75.0 [facility] Comment on above: Performed By: #### C BC ####[facility] Thlszhvuyh8359 [place] [address]Dr. Bhavani Laurel Platelet mean volume (Bld) [Entitic vol] 9.7 fL Normal 9.5-13.5 [facility] Comment on above: Performed By: #### C BC ####[facility] Cdjcnlualb3158 [place] [phone]. Bhavani Laurel PLT 434 103/ul Normal 150-450 [facility] Comment on above: Performed By: #### C BC ####[facility] Beddltnrmc6480 [place] [address]Dr. Jayceeroxi Laurel RBC 4.53 106/ul Normal 4.20-5.40 [facility] Comment on above: Performed By: #### C BC ####[facility] Lpptmunqik5011 [place] [address]Dr. Bhavani Laurel WBC 22.6 103/ul Critically high 4.0-11.0 [facility] Comment on above: Performed By: #### C BC ####[facility] Iojygjcgov6764 [place] [address]Dr. Bhavani Barragan ECHOCARDIO M/2D COMPLETEon 0 03-26-2022 ECHOCARDIO M/2D COMPLETE Normal [facility] POINT OF CARE GLUCOSEon Glucose [Mass/Vol] 166 mg/dL Critically high 74-106 [facility] Comment on above: Performed By: #### P OCGLUC ####[facility] Gqnzxdaxrl[address] [place], [place] [address]Dr. Bhavani Barragan Glucose [Mass/Vol] 148 mg/dL Critically high 74-106 [facility] Comment on above: Performed By: #### P OCGLUC ####[facility] Mkiiwqenbw9118 [place] [address]DrLydia Barragan PROF 14(COMP METB)on 022 Albumin [Mass/Vol] 2.4 g/dL Critically low 3.4-5.0 [facility] Comment on above: Performed By: #### C MP ####[facility] Kdqyvxnqjj5481 [place] [address]Dr. Bhavani Barragan Albumin/Globulin [Mass ratio] 0.6 {ratio} Normal [facility] Comment on above: Performed By: #### C MP ####[facility] Rnlshywqmc5861 [place] [address]Dr. hBavani Barragan ALP [Catalytic activity/Vol] 310 U/L Critically high 46-116 [facility] Comment on above: Performed By: #### C MP ####[facility] Ewurasvtxn0063 [place] [address]Dr. Bhavani Barragan ALT [Catalytic activity/Vol] 194 U/L Critically high 14-59 [facility] Comment on above: Performed By: #### C MP ####[facility] Sdwbizcfdp2105 [place] [phone]. Bhavani Barragan Anion gap [Moles/Vol] 8.2 mmol/L Normal [facility] Comment on above: Performed By: #### C MP ####[facility] Qsdzesmwvr9534 [place] [phone]. Bhavani Barragan AST [Catalytic activity/Vol] 133 U/L Critically high 15-37 [facility] Comment on above: Performed By: #### C MP ####[facility] Yjnrkdvdwb3327 [place] [phone]. Bhavani Laurel Bilirubin [Mass/Vol] 2.8 mg/dL Critically high 0.2-1.0 [facility] Comment on above: Performed By: #### C MP ####[facility] N[address]dmg[address] [place], [place] [address]Dr. Bhavani Barragan Calcium [Mass/Vol] 7.7 mg/dL Critically low 8.5-10.[address] [facility] Comment on above: Performed By: #### C MP ####[facility] Zczcavboun[address] [place], [place] [address]Dr. Bhavani Barragan Chloride [Moles/Vol] 105 mmol/L Normal 98-107 [facility] Comment on above: Performed By: #### C MP ####[facility] Pbadiiforc3170 [place] [address]Dr. Jayceeroxi Laurel CO2 [Moles/Vol] 25.8 mmol/L Normal 21.0-32.0 [facility] Comment on above: Performed By: #### C MP ####[facility] Gjasrtopnw[address] [place], [place] [address]Dr. Bhavani Laurel Creatinine [Mass/Vol] 1.07 mg/dL Critically high 0.55-1.02 [facility] Comment on above: Performed By: #### C MP ####[facility] Peafgudzgw4865 [place] [phone]. Bhavani Barragan EGFR-AF MALDIVIAN 60 mL/min/1.73m2 Normal >=[address] [facility] Comment on above: Performed By: #### C MP ####[facility] Kkrnxodofv7052 [place] [address]Dr. Bhavani Barragan EGFR-NON AF MALDIVIAN 49 mL/min/1.73m2 Critically low >=60 [facility] Comment on above: Performed By: #### C MP ####[facility] Wkdxlvcqbc9943 [place] [address]Dr. Bhavani Barragan Globulin (S) [Mass/Vol] 3.8 g/dL Normal [facility] Comment on above: Performed By: #### C MP ####[facility] Qelysfqmlo8684 [place] [address]Dr. Bhavani Barragan Glucose [Mass/Vol] 90 mg/dL Normal 74-106 [facility] Comment on above: Performed By: #### C MP ####[facility] Ouxvoppjpz[address] [place], [place] [address]Dr. Bhavani Barragan Potassium [Moles/Vol] 4.0 mmol/L Normal 3.5-5.1 [facility] Comment on above: Performed By: #### C MP ####[facility] Xcmvrdodpm[address] [place], [place] [address]Dr. Bhavani Barragan Protein [Mass/Vol] 6.2 g/dL Critically low 6.4-8.[address] [facility] Comment on above: Performed By: #### C MP ####[facility] [address]jkqbnbfj[address] [place], [place] [address]Dr. Bhavani Barragan Sodium [Moles/Vol] 135 mmol/L Critically low 136-[address] [facility] Comment on above: Performed By: #### C MP ####[facility] [address]jtdahh[address] [place], [place] [address]Dr. Bhavani Barragan Urea nitrogen [Mass/Vol] 14.0 mg/dL Normal 7.0-18.0 [facility] Comment on above: Performed By: #### C MP ####[facility] Imrbcaivke[address] [place], [place] [address]Dr. Bhavani Laurel Urea nitrogen/Creatinine [Mass ratio] 13.1 mg/mg Normal [facility] Comment on above: Performed By: #### C MP ####[facility] Ssxlmuhbos[address] [place], [place] [address]Dr. Bhavani Barragan PROTIMEon 03-26-2022 INR Coag (PPP) [Relative time] 1.31 {INR} Normal [facility] Comment on above: Performed By: #### P T, PTT ####[facility] [address] [place] [id number] Barragan INR GUIDELINES SEE BELOW Normal [facility] Comment on above: Result Comment: WALKER RED INR: 2.0 - 3.0 CONDITIONS NOT LISTED BELOW 2.5 - 3.5 FOR PROSTHETIC HEART VALVE REPLACEMENT 2.5 - 3.5 RECURRENT THROMBOSIS Performed By: #### P T, PTT ####[facility] Fgmeagqlog[address] [place], [place] [address]Dr. Bhavani Barragan PT Coag (PPP) [Time] 13.9 s Critically high 9.0-11.6 [facility] Comment on above: Performed By: #### P T, PTT ####[facility] Tapvpyohfu[address] [place], [place] [address]Dr. Bhavani Barragan PTTon 03-26-2022 aPTT Coag (Bld) [Time] 32.8 s Normal 22.3-36.2 [facility] Comment on above: Performed By: #### P T, PTT ####[facility] Juzhfktskn[address] [place], [place] [address]Dr. Bhavani Barragan AMMONIAon 03-25-2022 Ammonia (P) [Moles/Vol] 17 umol/L Normal 11-32 [facility] Comment on above: Performed By: #### A MM ####[facility] Lpaglqrmmd35[address] [place], [place] [address]DrLydia Barragan CBC W MANUAL DIFFon 03-25-20 22 ATYPICAL LYMPH # Normal [facility] Comment on above: Performed By: #### C BCMAN ####[facility] Ksltdoaet[address] [place], [place] [address]DrLydia Barragan ATYPICAL LYMPH % Normal [facility] Comment on above: Performed By: #### C BCJERSON ####[facility] Megmwsczhy[address] [place] [phone]. Yilan Barragan BAND # 0.3 103/ul Normal 0.0-0.3 [facility] Comment on above: Performed By: #### C BCJERSON ####[facility] Oiuggbnekx[address] [place] [address]Dr. Yilan Barragan BAND % 1 % Normal 0-5 [facility] Comment on above: Performed By: #### C BCJERSON ####[facility] Lgguldwqwn4[address] [place] [address]Dr. Yilan Barragan BASOM # 0.27 103/ul Critically high 0.00-0.10 [facility] Comment on above: Performed By: #### C BCJERSON ####[facility] Zdpdldmsgx8[address] [place], [place] [address]Dr. Yiroxi Barragan BASOM % 1.0 % Normal 0.2-2.0 The [facility] Comment on above: Performed By: #### C BCJERSON ####[facility] [address]akmymodz[address] [place] [address]Dr. Yilan Barragan BLAST # Normal [facility] Comment on above: Performed By: #### C BCJERSON ####[facility] Dszrlzntaw[address] [place], [place] [address]Dr. Yilan Barragan BLAST % Normal [facility] Comment on above: Performed By: #### C BCJERSON ####[facility] Wjyngsrhjs[address] [place], [place] [address]Dr. Yilan Barragan CORRECTED WBC Normal 4.0-11.0 The [facility] Comment on above: Performed By: #### C BCJERSON ####[facility] Fgkozmmvdz[address] [place] [address]Dr. Yilan Barragan EOS # 0.00 103/ul Normal 0.00-0.70 [facility] Comment on above: Performed By: #### C BCJERSON ####[facility] Vmwzsllvve[address] [place], [place] [address]Dr. Yilan Barragan EOS% 0.0 % Critically low 0.9-7.0 [facility] Comment on above: Performed By: #### C OMID ####[facility] Jofreimjog[address] [place], [place] [address]Ym. Bhavani Barragan HCT 41.6 % Normal 36.0-48.0 [facility] Comment on above: Performed By: #### C OMID ####[facility] Pqyjrqrzmx2685 [place], [place] [address]Ta. Bhavani Barragan HGB 12.8 g/dl Normal 12.0-16.0 [facility] Comment on above: Performed By: #### C OMID ####[facility] Wziulbyvya45[address] [place] [phone]. Bhavani Barragan LYMPHM # 0.80 103/ul Critically low 1.20-3.80 [facility] Comment on above: Performed By: #### C OMID ####[facility] Hgcalsanyg[address] [place] [phone]. Bhavani Barragan LYMPHM% 3.0 % Critically low 20.5-60.0 [facility] Comment on above: Performed By: #### C OMID ####[facility] Htwzytgmgb20[address] [place] [phone]. Bhavani Barragan MCH 29.4 pg Normal 26.7-34.0 [facility] Comment on above: Performed By: #### C OMID ####[facility] Pvojsusnwb1793 [place] [phone]. Bhavani Barragan MCHC 30.8 g/dl Normal 29.9-35.2 [facility] Comment on above: Performed By: #### C OMID ####[facility] Nchpzzibut6464 [place], [place] [address]Eb. Bhavani Barragan MCV 95.6 fL Normal 81.0-99.0 The [facility] Comment on above: Performed By: #### C OMID ####[facility] Iujkwgtevq88[address] [place] [phone]. Bhavani Barragan METAMYELOCYTE # Normal [facility] Comment on above: Performed By: #### C OMID ####[facility] Fiqxgjfbju9613 [place], [place] [address]Ji. Bhavani Barragan METAMYELOCYTE % Normal [facility] Comment on above: Performed By: #### C OMID ####[facility] Iplqleexmb5818 [place], [place] [address]Cu. Bhavani Barragan MONOM# 0.80 103/ul Normal 0.30-0.80 [facility] Comment on above: Performed By: #### C OMID ####[facility] Roqhzxpnbe4806 [place], [place] [address]Vm. Bhavani Barragan MONOM% 3.0 % Normal 1.7-12.0 [facility] Comment on above: Performed By: #### C OMID ####[facility] Buidmjrqav[address] [place] [phone]. Bhavani Barragan MPV 9.9 fL Normal 9.5-13.5 [facility] Comment on above: Performed By: #### C OMID ####[facility] Lymyhstyuy96[address] [place] [phone]. Bhavani Barragan MYELOCYTE # Normal [facility] Comment on above: Performed By: #### C OMID ####[facility] Xy[address]jg[address] [place], [place] [address]Dr. Bhavani Barragan MYELOCYTE % Normal [facility] Comment on above: Performed By: #### C OMID ####[facility] Yyfnfximpv11[address] [place] [phone]. Bhavani Barragan NRBC Normal [facility] Comment on above: Performed By: #### C OMID ####[facility] Fbglnytrvo9015 [place], [place] [address]Te. Bhavani Barragan PLT 448 103/ul Normal 150-450 [facility] Comment on above: Performed By: #### C OMID ####[facility] Byevsfvumu44[address] [place] [phone]. Bhavani Barragan RBC 4.35 106/ul Normal 4.20-5.40 [facility] Comment on above: Performed By: #### C OMID ####[facility] Bshbimovsr[address] [place] [address]Dr. Bhavani Barragan RDW 16.0 % Critically high 11.0-15.0 The [facility] Comment on above: Performed By: #### C BCMAN ####[facility] Jkzjvktfso58[address] [place] [address]Dr. Bhavani Barragan SEG # 24.38 103/ul Critically high 1.40-6.50 The [facility] Comment on above: Performed By: #### C BCMAN ####[facility] Rqelrcdwpp[address] [place], [place] [address]Dr. Bhavani Barragan SEG % 92.0 % Critically high 43.0-75.0 The [facility] Comment on above: Performed By: #### C OMID ####[facility] Udbxovrfpj93[address] [place], [place] [address]Dr. Bhavani Barragan WBC 26.5 103/ul Critically high 4.0-11.0 [facility] Comment on above: Performed By: #### C OMID ####[facility] Eenkfwhfvc[address] [place], [place] [address]Dr. Bhavani Barragan DIFFERENTIAL MANUALon 2021 ATYPICAL LYMPH # Normal [facility] Comment on above: Performed By: #### D IFF ####[facility] Y[address]ymhbmcqg[address] [place], [place] [address]Dr. Bhavani Barragan ATYPICAL LYMPH % Normal [facility] Comment on above: Performed By: #### D IFF ####[facility] Ugwbuufxve44[address] [place], [place] [address]Dr. Bhavani Barragan BAND # 0.3 103/ul Normal 0.0-0.3 [facility] Comment on above: Performed By: #### D IFF ####[facility] Ndbnudzkhe27[address] [place], [place] [address]Dr. Bhavani Barragan BAND % 1 % Normal 0-5 The [facility] Comment on above: Performed By: #### D IFF ####[facility] Ozlubexlai9[address] [place], [place] [address]Dr. Bhavani Barragan BASOM # 0.27 103/ul Critically high 0.00-0.10 [facility] Comment on above: Performed By: #### D IFF ####[facility] Ygzoioxxhb3[address] [place] [address]Dr. Bhavani Barragan BASOM % 1.0 % Normal 0.2-2.0 [facility] Comment on above: Performed By: #### D IFF ####[facility] Xqejbtykuf37[address] [place] [address]Dr. Bahvani Barragan BLAST # Normal [facility] Comment on above: Performed By: #### D IFF ####[facility] Dspiuuehew5847 [place] [address]Dr. Bhavani Barragan BLAST % Normal [facility] Comment on above: Performed By: #### D IFF ####[facility] Uipnxtnsef[address] [place], [place] [address]Dr. Bhavani Barragan CORRECTED WBC Normal 4.0-11.0 The [facility] Comment on above: Performed By: #### D IFF ####[facility] Bngpbeljjv5[address] [place], [place] [address]Dr. Bhavani Barragan EOS # 0.00 103/ul Normal 0.00-0.70 [facility] Comment on above: Performed By: #### D IFF ####[facility] E[address]tvzmupm[address] [place], [place] [address]Dr. Bhavani Barragan EOS% 0.0 % Critically low 0.9-7.0 [facility] Comment on above: Performed By: #### D IFF ####[facility] A[address]zvydvcs[address] [place], [place] [address]Dr. Bhavani Barragan LYMPHM # 0.80 103/ul Critically low 1.20-3.80 The [facility] Comment on above: Performed By: #### D IFF ####[facility] R[address]kosjbbfh[address] [place], [place] [address]Dr. Bhavani Barragan LYMPHM% 3.0 % Critically low 20.5-60.0 [facility] Comment on above: Performed By: #### D IFF ####[facility] Iecyvkefiu0[address] [place], [place] [address]Dr. Bhavani Barragan METAMYELOCYTE # Normal The [facility] Comment on above: Performed By: #### D IFF ####[facility] Aegwbwupgp6200 [place] [phone]. Bhavani Barragan METAMYELOCYTE % Normal [facility] Comment on above: Performed By: #### D IFF ####[facility] Pjumycbruc[address] [place] [phone]. Bhavani Barragan MONOM# 0.80 103/ul Normal 0.30-0.80 [facility] Comment on above: Performed By: #### D IFF ####[facility] Xvirkrzivv1168 [place] [phone]. Bhavani Barragan MONOM% 3.0 % Normal 1.7-12.0 [facility] Comment on above: Performed By: #### D IFF ####[facility] Hrapvlcinq[address] [place], [place] [address]Dr. Bhavani Barragan MYELOCYTE # Normal [facility] Comment on above: Performed By: #### D IFF ####[facility] Ndsiqcyckt3887 [place] [phone]. Bhavani Barragan MYELOCYTE % Normal [facility] Comment on above: Performed By: #### D IFF ####[facility] Hdewjciyuz[address] [place] [phone]. Bhavani Barragan NRBC Normal [facility] Comment on above: Performed By: #### D IFF ####[facility] Equezsqiia9595 [place] [phone]. Bhavani Barragan SEG # 24.38 103/ul Critically high 1.40-6.50 [facility] Comment on above: Performed By: #### D IFF ####[facility] Lemhaqhecg4957 [place] [phone]. Bhavani Barragan SEG % 92.0 % Critically high 43.0-75.0 [facility] Comment on above: Performed By: #### D IFF ####[facility] Uybsdsdwvj[address] [place], [place] [address]Dr. Bhavani Barragan WBC 26.5 103/ul Critically high 4.0-11.0 [facility] Comment on above: Performed By: #### D IFF ####[facility] Fvurasflbc[address] [place] [address]Dr. Jayceeroxi Laurel POINT OF CARE GLUCOSEon Glucose [Mass/Vol] 120 mg/dL Critically high 74-106 [facility] Comment on above: Performed By: #### P OCGLUC ####[facility] Zpyjdbfvba59[address] [place] [address]Dr. Bhavani Barragan Glucose [Mass/Vol] 98 mg/dL Normal 74-106 [facility] Comment on above: Performed By: #### P OCGLUC ####[facility] Ckofxcufbg35[address] [place] [address]Dr. Bhavani Barragan PROF 14(COMP METB)on 022 Albumin [Mass/Vol] 2.3 g/dL Critically low 3.4-5.0 [facility] Comment on above: Performed By: #### C MP ####[facility] Mckbvqiqsi1860 [place] [address]Dr. Bhavani Barragan Albumin/Globulin [Mass ratio] 0.6 {ratio} [facility] Comment on above: Performed By: #### C MP ####[facility] Iwofmniimy78[address] [place] [address]Dr. Bhavani Barragan ALP [Catalytic activity/Vol] 309 U/L Critically high 46-116 [facility] Comment on above: Performed By: #### C MP ####[facility] Ulykifrirv3866 [place] [address]Dr. Bhavani Barragan ALT [Catalytic activity/Vol] 163 U/L Critically high 14-59 [facility] Comment on above: Performed By: #### C MP ####[facility] Xpdasucams9296 [place] [address]Dr. Bhavani Barragan Anion gap [Moles/Vol] 12.2 mmol/L Normal [facility] Comment on above: Performed By: #### C MP ####[facility] Bydxaflzrj[address] [place], [place] [address]Dr. Bhavani Barragan AST [Catalytic activity/Vol] 103 U/L Critically high 15-37 The [facility] Comment on above: Performed By: #### C MP ####[facility] Zbeacoivqy8354 [place] [address]Dr. Bhavani Barragan Bilirubin [Mass/Vol] 1.5 mg/dL Critically high 0.2-1.0 The [facility] Comment on above: Performed By: #### C MP ####[facility] Emnrbafifj63[address] [place], [place] [address]Dr. Bhavani Barragan Calcium [Mass/Vol] 7.3 mg/dL Critically low 8.5-10.1 Th e [facility] Comment on above: Performed By: #### C MP ####[facility] Clcipxfxsk9828[address] [place], [place] [address]Dr. Bhavani Barragan Chloride [Moles/Vol] 107 mmol/L Normal 98-107 The [facility] Comment on above: Performed By: #### C MP ####[facility] Mpudohgbvc56[address] [place], [place] [address]Dr. Bhavani Barragan CO2 [Moles/Vol] 21.9 mmol/L Normal 21.0-32.0 [facility] Comment on above: Performed By: #### C MP ####[facility] Svcqrzmzve[address] [place], [place] [address]Dr. Bhavani Barragan Creatinine [Mass/Vol] 1.22 mg/dL Critically high 0.55-1.02 [facility] Comment on above: Performed By: #### C MP ####[facility] Yrmmsibutd607[address] [place], [place] [address]Dr. Bhavani Laurel EGFR-AF MALDIVIAN 51 mL/min/1.73m2 Critically low >=60 The [facility] Comment on above: Performed By: #### C MP ####[facility] Cpigehhsaf[address] [place], [place] [address]Dr. Bhavani Laurel EGFR-NON AF MALDIVIAN 42 mL/min/1.73m2 Critically low >=60 The [facility] Comment on above: Performed By: #### C MP ####[facility] Mjukwwjxwx03[address] [place] [address]Dr. Bhavani Barragan Globulin (S) [Mass/Vol] 3.7 g/dL Normal [facility] Comment on above: Performed By: #### C MP ####[facility] Bwbgokeuuw032[address] [place], [place] [address]Dr. Bhavani Barragan Glucose [Mass/Vol] 165 mg/dL Critically high 74-106 [facility] Comment on above: Performed By: #### C MP ####[facility] Bbtvfrzcru67[address] [place], [place] [address]Dr. Bhavani Barragan Potassium [Moles/Vol] 4.1 mmol/L Normal 3.5-5.1 [facility] Comment on above: Performed By: #### C MP ####[facility] [address]dikfiyenf[address] [place], [place] [address]Dr. Bhavani Barragan Protein [Mass/Vol] 6.0 g/dL Critically low 6.4-8.[address] [facility] Comment on above: Performed By: #### C MP ####[facility] Erwqftrqxr6[address] [place], [place] [address]Dr. Bhavani Barragan Sodium [Moles/Vol] 137 mmol/L Normal 136-145 [facility] Comment on above: Performed By: #### C MP ####[facility] Kyddrsieqm[address] [place], [place] [address]Dr. Bhavani Barragan Urea nitrogen [Mass/Vol] 18.0 mg/dL Normal 7.0-18.0 [facility] Comment on above: Performed By: #### C MP ####[facility] Wddwxcgipy[address] [place], [place] [address]Dr. Bhavani Barragan Urea nitrogen/Creatinine [Mass ratio] 14.8 mg/mg Normal [facility] Comment on above: Performed By: #### C MP ####[facility] Vbhvjkiauv13[address] [place], [place] [address]Dr. Bhavani Barragan PROTIMEon 03-25-2022 INR Coag (PPP) [Relative time] 1.18 {INR} Normal [facility] Comment on above: Performed By: #### P TT, PT ####[facility] Bzsddmsrgk[address] [place] [address]Dr. Bhavani Barragan INR GUIDELINES SEE BELOW Normal [facility] Comment on above: Result Comment: WALKER RED INR: 2.0 - 3.0 CONDITIONS NOT LISTED BELOW 2.5 - 3.5 FOR PROSTHETIC HEART VALVE REPLACEMENT 2.5 - 3.5 RECURRENT THROMBOSIS Performed By: #### P TT, PT ####[facility] Axhkztglsy24[address] [place], [place] [address]Dr. Bhavani Barragan PT Coag (PPP) [Time] 12.6 s Critically high 9.0-11.6 The [facility] Comment on above: Performed By: #### P TT, PT ####[facility] Uspbxslkfw[address] [place], [place] [address]Dr. Bhavani Barragan PTTon 03-25-2022 aPTT Coag (Bld) [Time] 30.6 s Normal 22.3-36.2 The [facility] Comment on above: Performed By: #### P TT, PT ####[facility] Ossdwlozmt[address] [place], [place] [address]Dr. Bhavani Barragan AMMONIAon 03-24-2022 Ammonia (P) [Moles/Vol] 38 umol/L Critically high 11-32 The [facility] Comment on above: Performed By: #### A MM ####[facility] Ixgeusftnt[address] [place], [place] [address]Dr. Bhavani Barragan BNPon 03-24-2022 Natriuretic peptide B (Bld) [Mass/Vol] 2420.0 pg/mL Critically high <=1,800.0 The [facility] Comment on above: Result Comment: repe ated Performed By: #### B GREEN MARKETING ANALYST, CMP ####[facility] [address]vjbnddv[address] [place], [place] [address]Dr. Bhavani Barragan CARDIAC ANDREA 3-6on 2 CK [Catalytic activity/Vol] 20 U/L Critically low 26-192 The [facility] Comment on above: Performed By: #### C MREP ####[facility] Lpldesktpw50[address] [place], [place] [address]Dr. Bhavani Barragan CK.MB [Mass/Vol] ng/mL Normal <=3.60 [facility] Comment on above: Performed By: #### C MREP ####[facility] Nbpdmjbrzq4[address] [place] [address]Dr. Bhavani Laurel HSTROP 42.4 pg/mL Normal 4.0-51.3 The [facility] Comment on above: Result Comment: CUT- OFF POINTS HAVE BEEN ESTABLISHED BASED ON THE FOURTH UNIVERSAL DEFINITIONS OF MYOCARDIALINFARCTION. THE UPPER REFERENCE LIMIT (URL) OF TROPONIN, DEFINED THE 99TH PERCENTILE OFcTnI DISTRIBUTION IN A REFERENCE POPULATION, HAS BEEN CONFIRMED THE DECISION THRESHOLDFOR [place] DIAGNOSIS. Performed By: #### C MREP ####[facility] Rsaubpgrcn4[address] [place] [address]Dr. Bhavani Barragan CK [Catalytic activity/Vol] 17 U/L Critically low 26-192 [facility] Comment on above: Performed By: #### C MREP ####[facility] Wuhhcvxqrs[address] [place], [place] [address]Dr. Bhavani Barragan CK.MB [Mass/Vol] 0.51 ng/mL Normal <=3.60 [facility] Comment on above: Performed By: #### C MREP ####[facility] Kvgxhgnyuc[address] [place], [place] [address]Dr. Bhavani Laurel HSTROP 45.4 pg/mL Normal 4.0-51.3 The [facility] Comment on above: Result Comment: CUT- OFF POINTS HAVE BEEN ESTABLISHED BASED ON THE FOURTH UNIVERSAL DEFINITIONS OF MYOCARDIALINFARCTION. THE UPPER REFERENCE LIMIT (URL) OF TROPONIN, DEFINED THE 99TH PERCENTILE OFcTnI DISTRIBUTION IN A REFERENCE POPULATION, HAS BEEN CONFIRMED THE DECISION THRESHOLDFOR [place] DIAGNOSIS. Performed By: #### C MREP ####[facility] Mnfwqbtpqe32[address] [place] [address]Dr. Bhavani Barragan CBC W MANUAL DIFFon 03-24-20 22 ANISOCYTOSIS 1+ Normal [facility] Comment on above: Performed By: #### C BCMAN ####[facility] [address] [place] [address]Dr. Bhavani Barragan ATYPICAL LYMPH # Normal [facility] Comment on above: Performed By: #### C BCMAN ####[facility] [address]evibtfldl65[address] [place] [phone]. Bhavani Barragan ATYPICAL LYMPH % Normal [facility] Comment on above: Performed By: #### C OMID ####[facility] Zapfcnbpbu029[address] [place] [phone]. Yilan Barragan BAND # 0.8 103/ul Critically high 0.0-0.3 The [facility] Comment on above: Performed By: #### C OMID ####[facility] Wqkhcddhjc7737 [place] [address]Dr. Yilan Barragan BAND % 3 % Normal 0-5 The [facility] Comment on above: Performed By: #### C OMID ####[facility] Tsricinknt9361 [place] [address]Dr. Yiroxi Barragan BASOM # 0.00 103/ul Normal 0.00-0.10 The [facility] Comment on above: Performed By: #### C OMID ####[facility] Vfctugjdkg[address] [place], [place] [address]Dr. Yiroxi Barragan BASOM % 0.0 % Critically low 0.2-2.0 The [facility] Comment on above: Performed By: #### C OMID ####[facility] Ydqxkhnmed40[address] [place] [address]Dr. Yilan Barragan BLAST # Normal The [facility] Comment on above: Performed By: #### C OMID ####[facility] Tyoesxeyqc[address] [place] [address]Dr. Yilan Barragan BLAST % Normal The [facility] Comment on above: Performed By: #### C OMID ####[facility] Xshzxgzofa6[address] [place] [address]Dr. Bhavani Barragan CORRECTED WBC Normal 4.0-11.0 The [facility] Comment on above: Performed By: #### C OMID ####[facility] Wlmtjaeiro[address] [place] [phone]. Yilan Barragan EOS # 0.00 103/ul Normal 0.00-0.70 The [facility] Comment on above: Performed By: #### C OMID ####[facility] Bqlpqozrsf38[address] [place], [place] [address]Zi. Bhavani Barragan EOS% 0.0 % Critically low 0.9-7.0 [facility] Comment on above: Performed By: #### C OMID ####[facility] Ozbxbtoval8000 [place], [place] [address]Ex. Bhavani Barragan HCT 44.0 % Normal 36.0-48.0 The [facility] Comment on above: Performed By: #### C OMID ####[facility] Ivogeynbdj7840 [place], [place] [address]Tl. Bhavani Barragan HGB 13.3 g/dl Normal 12.0-16.0 The [facility] Comment on above: Performed By: #### C OMID ####[facility] Ytuwidfqtl4716 [place] [phone]. Bhavani Barragan LYMPHM # 1.08 103/ul Critically low 1.20-3.80 The [facility] Comment on above: Performed By: #### C OMID ####[facility] Lcernnvgvf4490 [place] [phone]. Bhavani Barragan LYMPHM% 4.0 % Critically low 20.5-60.0 The [facility] Comment on above: Performed By: #### C OMID ####[facility] Kqpucbjobe2171 [place] [phone]. Bhavani Barragan MCH 29.6 pg Normal 26.7-34.0 The [facility] Comment on above: Performed By: #### C OMID ####[facility] Ewdrzmhfry[address] [place], [place] [address]Ms. Bhavani Barragan MCHC 30.2 g/dl Normal 29.9-35.2 The [facility] Comment on above: Performed By: #### C OMID ####[facility] Xlxaygfgkg0226 [place] [phone]. Bhavani Barragan MCV 97.8 fL Normal 81.0-99.0 [facility] [facility] Comment on above: Performed By: #### Jany ANNE ####[facility] Igwapsuscp[address] [place] [phone]. Bhavani Barragan METAMYELOCYTE # Normal [facility] Comment on above: Performed By: #### C BCMAN ####[facility] Fmumqeuqng[address] [place] [phone]. Bhavani Barragan METAMYELOCYTE % Normal [facility] Comment on above: Performed By: #### C BCJERSON ####[facility] Ixmwvpkmgt6894 [place] [phone]. Bhavani Barragan MONOM# 0.54 103/ul Normal 0.30-0.80 [facility] Comment on above: Performed By: #### C OMID ####[facility] [address]tvjmturqz[address] [place], [place] [address]Dr. Bhavani Barragan MONOM% 2.0 % Normal 1.7-12.0 [facility] Comment on above: Performed By: #### C OMID ####[facility] Rmthicmv[address] [place], [place] [address]Dr. Bhavani Barragan MPV 10.3 fL Normal 9.5-13.5 [facility] Comment on above: Performed By: #### C OMID ####[facility] [address]rwrj[address]cy[address] [place], [place] [address]Dr. Bhavani Barragan MYELOCYTE # Normal The [facility] Comment on above: Performed By: #### C OMID ####[facility] Xvcnclotkx[address] [place], [place] [address]Dr. Bhavani Barragan MYELOCYTE % Normal The [facility] Comment on above: Performed By: #### C BCJERSON ####[facility] Jsdelqexlm[address] [place], [place] [id number]. Bhavani Barragan NRBC Normal The [facility] Comment on above: Performed By: #### C OMID ####[facility] Ydgtucwkop[address] [place], [place] [address]Dr. Bhavani Barragan PLT 424 103/ul Normal 150-450 [facility] Comment on above: Performed By: #### C OMID ####[facility] Vqizlrvtny64[address] [place], [place] [address]Dr. Yiroxi Barragan RBC 4.50 106/ul Normal 4.20-5.40 [facility] Comment on above: Performed By: #### C BCMAN ####[facility] Apmengnlsl4642 [place], [place] [address]Dh. Bhavani Barragan RDW 15.9 % Critically high 11.0-15.0 [facility] Comment on above: Performed By: #### C BCMAN ####[facility] Vsuvwpzshg1853 [place], [place] [address]Xq. Bhavani Barragan SEG # 24.48 103/ul Critically high 1.40-6.50 [facility] Comment on above: Performed By: #### C BCMAN ####[facility] Vbpxlbizap0269 [place], [place] [address]Id. Bhavani Barragan SEG % 91.0 % Critically high 43.0-75.0 [facility] Comment on above: Performed By: #### C BCJERSNO ####[facility] Aysafigrcr44[address] [place] [phone]. Bhavani Barragan WBC 26.9 103/ul Critically high 4.0-11.0 [facility] Comment on above: Performed By: #### C BCMAN ####[facility] Zhcafsvrzz3324 [place] [phone]. Bhavani Barragan CULTURE URINEon 03-24-2022 CULTURE URINE Normal [facility] Comment on above: Performed By: #### U RCX ####[facility] Pmsxmyrhav4470 [place] [phone]. Bhavani Barragan POINT OF CARE GLUCOSEon 05 Glucose [Mass/Vol] 113 mg/dL Critically high 74-106 [facility] Comment on above: Performed By: #### P OCGLUC ####[facility] Tgxdublwgq4370 [place] [phone]. Bhavani Barragan Glucose [Mass/Vol] 103 mg/dL Normal 74-106 [facility] Comment on above: Performed By: #### P OCGLUC ####[facility] Crywwmtbnj8917 [place] [phone]. Bhavani Barragan Glucose [Mass/Vol] 134 mg/dL Critically high 74-106 [facility] Comment on above: Performed By: #### P OCGLUC ####[facility] Zjktgxmuea4[address] [place], [place] [address]Dr. Bhavani Barragan PROF 14(COMP METB)on 022 Albumin [Mass/Vol] 2.3 g/dL Critically low 3.4-5.0 Th e [facility] Comment on above: Performed By: #### B GREEN MARKETING ANALYST, CMP ####[facility] Hznmjeaxqk572667 [address] [place], [place] [address]Dr. Bhavani Barragan Albumin/Globulin [Mass ratio] 0.6 {ratio} Normal [facility] Comment on above: Performed By: #### B GREEN MARKETING ANALYST, CMP ####[facility] Pnaquacogv[address] [place], [place] [address]Dr. Bhavani Barragan ALP [Catalytic activity/Vol] 239 U/L Critically high 46-116 [facility] Comment on above: Performed By: #### B GREEN MARKETING ANALYST, CMP ####[facility] Luazyhspin113367 [address] [place], [place] [address]Dr. Bhavani Barragan ALT [Catalytic activity/Vol] 185 U/L Critically high 14-59 [facility] Comment on above: Performed By: #### B GREEN MARKETING ANALYST, CMP ####[facility] Drhvlzafhr1236[address] [place], [place] [address]Dr. Bhavani Barragan Anion gap [Moles/Vol] 13.8 mmol/L Normal [facility] Comment on above: Performed By: #### B GREEN MARKETING ANALYST, CMP ####[facility] Ycpmoijqcz36[address] [place], [place] [address]Dr. hBavani Barragan AST [Catalytic activity/Vol] 64 U/L Critically high 15-37 [facility] Comment on above: Performed By: #### B GREEN MARKETING ANALYST, CMP ####[facility] Kdllgwqlba289[address] [place], [place] [address]Dr. Bhavani Barragan Bilirubin [Mass/Vol] 0.6 mg/dL Normal 0.2-1.0 [facility] Comment on above: Performed By: #### B GREEN MARKETING ANALYST, CMP ####[facility] Ewkxnnflsr73[address] [place], [place] [address]Dr. Bhavani Barragan Calcium [Mass/Vol] 7.3 mg/dL Critically low 8.5-10.[address] [facility] Comment on above: Performed By: #### B GREEN MARKETING ANALYST, CMP ####[facility] Qkfsqtyjsb5164[address] [place], [place] [address]Dr. Bhavani Barragan Chloride [Moles/Vol] 105 mmol/L Normal 98-107 [facility] Comment on above: Performed By: #### B GREEN MARKETING ANALYST, CMP ####[facility] Iqfremeqbe4312[address] [place], [place] [address]Dr. Bhavani Barragan CO2 [Moles/Vol] 20.9 mmol/L Critically low 21.0-32.0 [facility] Comment on above: Performed By: #### B GREEN MARKETING ANALYST, CMP ####[facility] Mveripqihr2986[address] [place], [place] [address]Dr. Bhavani Barragan Creatinine [Mass/Vol] 1.24 mg/dL Critically high 0.55-1.02 [facility] Comment on above: Performed By: #### B GREEN MARKETING ANALYST, CMP ####[facility] Jwznuinzud3287[address] [place], [place] [address]Dr. Bhavani Barragan EGFR-AF MALDIVIAN 50 mL/min/1.73m2 Critically low >=60 [facility] Comment on above: Performed By: #### B GREEN MARKETING ANALYST, CMP ####[facility] Jurpkaysbe1254[address] [place], [place] [address]Dr. Bhavani Barragan EGFR-NON AF MALDIVIAN 41 mL/min/1.73m2 Critically low >=60 [facility] Comment on above: Performed By: #### B GREEN MARKETING ANALYST, CMP ####[facility] Rlrkdiaxwl645[address] [place], [place] [address]Dr. Bhavani Barragan Globulin (S) [Mass/Vol] 3.8 g/dL Normal [facility] Comment on above: Performed By: #### B GREEN MARKETING ANALYST, CMP ####[facility] Vkakezwkmr9[address] [place], [place] [address]Dr. Bhavani Barragan Glucose [Mass/Vol] 164 mg/dL Critically high 74-106 [facility] Comment on above: Performed By: #### B GREEN MARKETING ANALYST, CMP ####[facility] Cidrbbjgvn64[address] [place] [address]Dr. Bhavani Barragan Potassium [Moles/Vol] 3.7 mmol/L Normal 3.5-5.1 [facility] Comment on above: Performed By: #### B GREEN MARKETING ANALYST, CMP ####[facility] Uhpwjsucic0644[address] [place], [place] [address]Dr. Bhavani Barragan Protein [Mass/Vol] 6.1 g/dL Critically low 6.4-8.[address] [facility] Comment on above: Performed By: #### B GREEN MARKETING ANALYST, CMP ####[facility] Hzrxmkqern960867 [address] [place], [place] [address]Dr. Bhavani Barragan Sodium [Moles/Vol] 136 mmol/L Normal 136-145 [facility] Comment on above: Performed By: #### B GREEN MARKETING ANALYST, CMP ####[facility] Ckujjbfbgz6625[address] [place], [place] [address]Dr. Bhavani Barragan Urea nitrogen [Mass/Vol] 23.0 mg/dL Critically high 7.0-18.0 [facility] Comment on above: Performed By: #### B GREEN MARKETING ANALYST, CMP ####[facility] Nykyxebopp54[address] [place], [place] [address]Dr. Bhavani Barragan Urea nitrogen/Creatinine [Mass ratio] 18.5 mg/mg Normal [facility] Comment on above: Performed By: #### B GREEN MARKETING ANALYST, CMP ####[facility] Cadralnkay03[address] [place], [place] [address]Dr. Bhavani Barragan PROTIMEon 03-24-2022 INR Coag (PPP) [Relative time] 1.19 {INR} Normal [facility] Comment on above: Performed By: #### P TT, PT ####[facility] Xyukkvpbba[address] [place], [place] [address]Dr. Bhavani Barragan INR GUIDELINES SEE BELOW Normal [facility] Comment on above: Result Comment: WALKER RED INR: 2.0 - 3.0 CONDITIONS NOT LISTED BELOW 2.5 - 3.5 FOR PROSTHETIC HEART VALVE REPLACEMENT 2.5 - 3.5 RECURRENT THROMBOSIS Performed By: #### P TT, PT ####[facility] Rthevflgdo[address] [place] [address]Dr. Bhavani Barragan PT Coag (PPP) [Time] 12.7 s Critically high 9.0-11.6 The [facility] Comment on above: Performed By: #### P TT, PT ####[facility] Wynhwsigtr[address] [place] [address]Dr. Bhavani Barragan PTTon 03-24-2022 aPTT Coag (Bld) [Time] 29.4 s Normal 22.3-36.2 The [facility] Comment on above: Performed By: #### P TT, PT ####[facility] Inujpowhvx[address] [place] [address]Dr. Bhavani Barragan AMMONIAon 03-23-2022 Ammonia (P) [Moles/Vol] 26 umol/L Normal 11-32 The [facility] Comment on above: Performed By: #### A MM ####[facility] Ktxuacyfuc14[address] [place], [place] [address]Dr. Bhavani Barragan AMYLASEon 03-23-2022 Amylase [Catalytic activity/Vol] 21 U/L Critically low 25-115 [facility] Comment on above: Performed By: #### A MY LIPA, BNP ####[facility] Qpczbqqvhh[address] [place], [place] [address]Dr. Bhavani Barragan BNPon 03-23-2022 Natriuretic peptide B (Bld) [Mass/Vol] 6713.0 pg/mL Critically high <=1,800.0 The [facility] Comment on above: Result Comment: repe ated Performed By: #### B GREEN MARKETING ANALYST, CMP ####[facility] Iggtxzqrot[address] [place], [place] [address]Dr. Bhavani Barragan Natriuretic peptide B (Bld) [Mass/Vol] 6961.0 pg/mL Critically high <=1,800.0 [facility] Comment on above: Performed By: #### A MY, LIPA, BNP ####[facility] Lojrsmnwwz4[address] [place], [place] [address]Dr. Bhavani Barragan CBC W MANUAL DIFFon 03-23-20 ANISOCYTOSIS 1+ Normal [facility] Comment on above: Performed By: #### C OMID ####[facility] E[address]zvgvkem[address] [place] [phone]. Bhavani Barragan ATYPICAL LYMPH # Normal [facility] Comment on above: Performed By: #### C BCJERSON ####[facility] Vbxqvxbphb40[address] [place] [phone]. Bhavani Barragan ATYPICAL LYMPH % Normal [facility] Comment on above: Performed By: #### C BCJERSON ####[facility] Yejiaglyla74[address] [place] [address]Dr. Bhavani Barragan BAND # 0.6 103/ul Critically high 0.0-0.3 [facility] Comment on above: Performed By: #### C OMID ####[facility] Dvzjpifgaq0[address] [place] [address]Dr. Bhavani Barragan BAND % 2 % Normal 0-5 [facility] Comment on above: Performed By: #### C OMID ####[facility] Lhxoxiqkwe[address] [place], [place] [address]Dr. Bhavani Barragan BASOM # 0.00 103/ul Normal 0.00-0.10 [facility] Comment on above: Performed By: #### C OMID ####[facility] [address]miwqlijhd[address] [place], [place] [address]Dr. Bhavani Barragan BASOM % 0.0 % Critically low 0.2-2.0 The [facility] Comment on above: Performed By: #### C OMID ####[facility] Fiyaytkxbd[address] [place] [address]Dr. Bhavani Barragan BLAST # Normal [facility] Comment on above: Performed By: #### C OMID ####[facility] Obxpdedxkv[address] [place] [address]Dr. Jayceelan Barragan BLAST % Normal [facility] Comment on above: Performed By: #### C OMID ####[facility] Wqvgwcrycv22[address] [place] [address]Dr. Bhavani Barragan CORRECTED WBC Normal 4.0-11.0 The [facility] Comment on above: Performed By: #### C OMID ####[facility] Epgcohfvwq44[address] [place], [place] [address]Ut. Bhavani Barragan EOS # 0.30 103/ul Normal 0.00-0.70 [facility] Comment on above: Performed By: #### C OMID ####[facility] Scuxirhftt24[address] [place], [place] [address]Fk. Bhavani Barragan EOS% 1.0 % Normal 0.9-7.0 [facility] Comment on above: Performed By: #### C OMID ####[facility] Vjpvyihhim[address]49 [place], [place] [address]Cl. Bhavani Barragan HCT 48.1 % Critically high 36.0-48.0 [facility] Comment on above: Performed By: #### C OMID ####[facility] Ivxhmrrutw04[address] [place] [phone]. Bhavani Barragan HGB 14.6 g/dl Normal 12.0-16.0 [facility] Comment on above: Performed By: #### Jany ANNE ####[facility] Jcocevwhie4[address] [place] [phone]. Bhavani Barragan LYMPHM # 0.90 103/ul Critically low 1.20-3.80 [facility] Comment on above: Performed By: #### Jany ANNE ####[facility] Isgnvsxceh84[address] [place], [place] [address]Gt. Bhavani Barragan LYMPHM% 3.0 % Critically low 20.5-60.0 The [facility] Comment on above: Performed By: #### Jany ANNE ####[facility] Smhrmrgmpa65[address] [place], [place] [address]Oj. Bhavani Barragan MCH 29.4 pg Normal 26.7-34.0 [facility] Comment on above: Performed By: #### C OMID ####[facility] Yewwflmaju6559 [place], [place] [address]Ta. Bhavani Barragan MCHC 30.4 g/dl Normal 29.9-35.2 [facility] Comment on above: Performed By: #### Jany ANNE ####[facility] Exswtaonbj0465 [place] [phone]. Bhavani Barragan MCV 96.8 fL Normal 81.0-99.0 [facility] Comment on above: Performed By: #### C BCMAN ####[facility] Qwcpigjxee6904 [place] [phone]. Bhavani Barragan METAMYELOCYTE # Normal [facility] Comment on above: Performed By: #### C OMID ####[facility] Vkpuwekczl2624 [place] [phone]. Bhavani Barragan METAMYELOCYTE % Normal [facility] Comment on above: Performed By: #### C OMID ####[facility] Hztlbcluay0259 [place] [phone]. Bhavani Barragan MONOM# 0.60 103/ul Normal 0.30-0.80 [facility] Comment on above: Performed By: #### C OMID ####[facility] Kqsohstfju[address] [place], [place] [address]Dr. Bhavani Barragan MONOM% 2.0 % Normal 1.7-12.0 [facility] Comment on above: Performed By: #### C OMID ####[facility] Twwxeuxrbe[address] [place], [place] [address]Dr. Bhavani Barragan MPV 10.2 fL Normal 9.5-13.5 [facility] Comment on above: Performed By: #### C OMID ####[facility] Azrjludkgw3252 [place] [phone]. Bhavani Barragan MYELOCYTE # Normal [facility] Comment on above: Performed By: #### C OMID ####[facility] Hwykwnlvfw1790 [place] [phone]. Bhavani Barragan MYELOCYTE % Normal [facility] Comment on above: Performed By: #### C OMID ####[facility] D[address]hhslve19[address] [place], [place] [address]Dr. Bhavani Barragan NRBC Normal [facility] Comment on above: Performed By: #### C OMID ####[facility] Mhgwrvmluw4925 [place] [phone]. Bhavani Barragan PLT 391 103/ul Normal 150-450 [facility] Comment on above: Performed By: #### C OMID ####[facility] Elzydkwwqg1764 [place] [phone]. Bhavani Barragan RBC 4.97 106/ul Normal 4.20-5.40 [facility] Comment on above: Performed By: #### C OMID ####[facility] Qioodjyspk8047 [place] [phone]. Bhavani Barragan RDW 15.8 % Critically high 11.0-15.0 [facility] Comment on above: Performed By: #### C OMID ####[facility] Wmqiufmwig9114 [place] [phone]. Bhavani Barragan SEG # 27.60 103/ul Critically high 1.40-6.50 [facility] Comment on above: Performed By: #### C OMID ####[facility] Oqqozzzxul1787 [place] [address]Dr. Bhavani Barragan SEG % 92.0 % Critically high 43.0-75.0 [facility] Comment on above: Performed By: #### C OMID ####[facility] Tsqynhteuz6348 [place] [phone]. Bhavani Barragan WBC 30.0 103/ul Critically high 4.0-11.0 [facility] Comment on above: Performed By: #### C OMID ####[facility] Pddmdkddlg3640 [place] [address]Dr. Bhavani Barragan LIPASEon 03-23-2022 Lipase [Catalytic activity/Vol] 35.0 U/L Critically low 73.0-393.0 [facility] Comment on above: Performed By: #### A MY, LIPA, BNP ####[facility] Dsmwwgavun0415 [place] [phone]. Bhavani Barragan POINT OF CARE GLUCOSEon Glucose [Mass/Vol] 141 mg/dL Critically high 74-106 [facility] Comment on above: Performed By: #### P OCGLUC ####[facility] Scdjwqbpvl3974 [place] [address]Dr. Bhavani Laurel Glucose [Mass/Vol] 107 mg/dL Critically high 74-106 [facility] Comment on above: Performed By: #### P OCGLUC ####[facility] Lgmynuuuyb1499 [place] [address]Dr. Bhavani Barragan Glucose [Mass/Vol] 152 mg/dL Critically high 74-106 [facility] Comment on above: Performed By: #### P OCGLUC ####[facility] Bcikknqchf0986 [place] [address]Dr. Bhavani Barragan PROF 14(COMP METB)on 022 Albumin [Mass/Vol] 2.4 g/dL Critically low 3.4-5.[address] [facility] Comment on above: Performed By: #### B GREEN MARKETING ANALYST, CMP ####[facility] Pxhrbyrkfy[address] [place], [place] [address]Dr. Bhavani Barragan Albumin/Globulin [Mass ratio] 0.6 {ratio} [facility] Comment on above: Performed By: #### B GREEN MARKETING ANALYST, CMP ####[facility] [address]nwrkphse22[address] [place], [place] [address]Dr. Bhavani Barragan ALP [Catalytic activity/Vol] 298 U/L Critically high 46-116 [facility] Comment on above: Performed By: #### B GREEN MARKETING ANALYST, CMP ####[facility] Tnrnwoelmy82[address] [place], [place] [address]Dr. Bhavani Barragan ALT [Catalytic activity/Vol] 280 U/L Critically high 14-59 [facility] Comment on above: Performed By: #### B GREEN MARKETING ANALYST, CMP ####[facility] Hnyewsrhub65[address] [place], [place] [address]Dr. Jayceeroxi Laurel Anion gap [Moles/Vol] 15.2 mmol/L Normal [facility] Comment on above: Performed By: #### B GREEN MARKETING ANALYST, CMP ####[facility] Tnzouujcff1214[address] [place], [place] [address]Dr. Bhavani Barragan AST [Catalytic activity/Vol] 146 U/L Critically high 15-37 [facility] Comment on above: Performed By: #### B GREEN MARKETING ANALYST, CMP ####[facility] Usyebyvpiq23[address] [place], [place] [address]Dr. Bhavani Barragan Bilirubin [Mass/Vol] 1.8 mg/dL Critically high 0.2-1.0 The [facility] Comment on above: Performed By: #### B GREEN MARKETING ANALYST, CMP ####[facility] Ykxtyfyzes[address] [place], [place] [address]Dr. Bhavani Barragan Calcium [Mass/Vol] 7.7 mg/dL Critically low 8.5-10.[address] [facility] Comment on above: Performed By: #### B GREEN MARKETING ANALYST, CMP ####[facility] Touiljidue743[address] [place], [place] [address]Dr. Bhavani Barragan Chloride [Moles/Vol] 105 mmol/L Normal 98-107 [facility] Comment on above: Performed By: #### B GREEN MARKETING ANALYST, CMP ####[facility] Edjlkzrvqb164[address] [place], [place] [address]Dr. Bhavani Barragan CO2 [Moles/Vol] 22.0 mmol/L Normal 21.0-32.0 [facility] Comment on above: Performed By: #### B GREEN MARKETING ANALYST, CMP ####[facility] Iixyqbdcdw[address] [place], [place] [address]Dr. Bhavani Barragan Creatinine [Mass/Vol] 1.44 mg/dL Critically high 0.55-1.02 [facility] Comment on above: Performed By: #### B GREEN MARKETING ANALYST, CMP ####[facility] Nwenhueltp[address] [place], [place] [address]Dr. Bhavani Laurel EGFR-AF MALDIVIAN 42 mL/min/1.73m2 Critically low >=60 [facility] Comment on above: Performed By: #### B GREEN MARKETING ANALYST, CMP ####[facility] Cknogvfcob[address] [place], [place] [address]Dr. Jayceeroxi Laurel EGFR-NON AF MALDIVIAN 35 mL/min/1.73m2 Critically low >=60 [facility] Comment on above: Performed By: #### B GREEN MARKETING ANALYST, CMP ####[facility] Weseyydojx2[address] [place], [place] [address]Dr. Bhavani Barragan Globulin (S) [Mass/Vol] 4.0 g/dL Normal [facility] Comment on above: Performed By: #### B GREEN MARKETING ANALYST, CMP ####[facility] Jqfycqnqjq80[address] [place] [address]Dr. Bhavani Barragan Glucose [Mass/Vol] 136 mg/dL Critically high 74-106 [facility] Comment on above: Performed By: #### B GREEN MARKETING ANALYST, CMP ####[facility] Qipbaxldze1692 [place] [address]Dr. Bhavani Barragan Potassium [Moles/Vol] 4.2 mmol/L Normal 3.5-5.1 [facility] Comment on above: Performed By: #### B GREEN MARKETING ANALYST, CMP ####[facility] [address]ujd[address]bxl[address] [place], [place] [address]Dr. Bhavani Barragan Protein [Mass/Vol] 6.4 g/dL Normal 6.4-8.2 [facility] Comment on above: Performed By: #### B GREEN MARKETING ANALYST, CMP ####[facility] Ttvwftsjec[address] [place], [place] [address]Dr. Bhavani Laurel Sodium [Moles/Vol] 138 mmol/L Normal 136-145 [facility] Comment on above: Performed By: #### B GREEN MARKETING ANALYST, CMP ####[facility] Vxpgryxkux[address] [place], [place] [address]Dr. Bhavani Barragan Urea nitrogen [Mass/Vol] 23.0 mg/dL Critically high 7.0-18.0 [facility] Comment on above: Performed By: #### B GREEN MARKETING ANALYST, CMP ####[facility] Lnnujucezx[address] [place], [place] [address]Dr. Jayceeroxi Laurel Urea nitrogen/Creatinine [Mass ratio] 16.0 mg/mg Normal [facility] Comment on above: Performed By: #### B GREEN MARKETING ANALYST, CMP ####[facility] [address]ias[address]iw[address] [place], [place] [address]Dr. Bhavani Barragan PROTIMEon 03-23-2022 INR Coag (PPP) [Relative time] 1.53 {INR} Normal [facility] Comment on above: Performed By: #### P TT, PT ####[facility] Nwfjhgiibm[address] [place], [place] [address]Dr. Bhavani Barragan INR GUIDELINES SEE BELOW Normal [facility] Comment on above: Result Comment: WALKER RED INR: 2.0 - 3.0 CONDITIONS NOT LISTED BELOW 2.5 - 3.5 FOR PROSTHETIC HEART VALVE REPLACEMENT 2.5 - 3.5 RECURRENT THROMBOSIS Performed By: #### P TT, PT ####[facility] [facility] [address] [place] [address]Dr. Bhavani Barragan PT Coag (PPP) [Time] 16.1 s Critically high 9.0-11.6 [facility] Comment on above: Performed By: #### P TT, PT ####[facility] Otv[address] [place], [place] [address]Dr. Bhavani Barragan PTTon 03-23-2022 aPTT Coag (Bld) [Time] 29.9 s Normal 22.3-36.2 [facility] Comment on above: Performed By: #### P TT, PT ####[facility] Aochlliihu[address] [place], [place] [address]Dr. Bhavani Barragan BILIRUBIN CONJUGATED (DIRECT )on 03-22-2022 BILI, CONJUGATED 2.3 mg/dL Critically high 0.0-0.2 The [facility] Comment on above: Performed By: #### D RAI ####[facility] Ysgpqtsidm[address] [place], [place] [address]Dr. Bhavani Barragan BNPon 03-22-2022 Natriuretic peptide B (Bld) [Mass/Vol] 2436.0 pg/mL Critically high <=1,800.0 The [facility] Comment on above: Result Comment: this BNP was run on specimen from ER drawn on 03/22 at 1606 Performed By: #### B GREEN MARKETING ANALYST ####[facility] [address] [place], [place] [address]Dr. Bhavani Barragan CBC W MANUAL DIFFon 03-22-20 22 ATYPICAL LYMPH # Normal The [facility] Comment on above: Performed By: #### C BCMAN ####[facility] Drelyplnrp[address] [place], [place] [address]Dr. Bhavani Barragan ATYPICAL LYMPH % Normal [facility] Comment on above: Performed By: #### C BCMAN ####[facility] [address] [place] [address]Dr. Yilan Barragan BAND # 0.9 103/ul Critically high 0.0-0.3 The [facility] Comment on above: Performed By: #### C BCJERSON ####[facility] [address] [place] [address]Dr. Bhavani Barragan BAND % 3 % Normal 0-5 [facility] Comment on above: Performed By: #### C BCJERSON ####[facility] Getqlptiku[address] [place] [address]Dr. Yilan Barragan BASOM # 0.00 103/ul Normal 0.00-0.10 [facility] Comment on above: Performed By: #### C BCJERSON ####[facility] [address]im[address] [place], [place] [address]Dr. Bhavani Barragan BASOM % 0.0 % Critically low 0.2-2.0 The [facility] Comment on above: Performed By: #### C BCJERSON ####[facility] [address] [place], [place] [address]Dr. Yilan Barragan BLAST # Normal [facility] Comment on above: Performed By: #### C OMID ####[facility] W[address]uzhqnxv[address] [place], [place] [address]Dr. Yilan Barragan BLAST % Normal [facility] Comment on above: Performed By: #### C OMID ####[facility] Irppftmwbs96[address] [place], [place] [address]Dr. Bhavani Barragan CORRECTED WBC Normal 4.0-11.0 The [facility] Comment on above: Performed By: #### C BCJERSON ####[facility] X[address]xcayrs[address] [place] [address]Dr. Yiroxi Barragan EOS # 0.00 103/ul Normal 0.00-0.70 [facility] Comment on above: Performed By: #### C BCJERSON ####[facility] Kmowmom[address] [place], [place] [address]Dr. Yiroxi Barragan EOS% 0.0 % Critically low 0.9-7.0 The [facility] Comment on above: Performed By: #### C OMID ####[facility] [address] [place], [place] [address]Wz. Bhavani Barragan HCT 44.6 % Normal 36.0-48.0 The [facility] Comment on above: Performed By: #### C OMID ####[facility] [address]uafklpjo[address] [place], [place] [address]Sx. Bhavani Barragan HGB 13.9 g/dl Normal 12.0-16.0 The [facility] Comment on above: Performed By: #### C OMID ####[facility] [address]lqq[address]65[address] [place], [place] [address]Sx. Bhavani Barragan LYMPHM # 0.60 103/ul Critically low 1.20-3.80 The [facility] Comment on above: Performed By: #### C OMID ####[facility] [address]baz[address] [place], [place] [address]St. Bhavani Barragan LYMPHM% 2.0 % Critically low 20.5-60.0 The [facility] Comment on above: Performed By: #### C OMID ####[facility] Ksewmntysg37[address] [place], [place] [address]En. Bhavani Barragan MCH 29.8 pg Normal 26.7-34.0 The [facility] Comment on above: Performed By: #### C OMID ####[facility] Mlwtfakpxd035[address] [place], [place] [address]Hv. Bhavani Barragan MCHC 31.2 g/dl Normal 29.9-35.2 The [facility] Comment on above: Performed By: #### C OMID ####[facility] O[address]qac[address] [place], [place] [address]Qq. Bhavani Barragan MCV 95.7 fL Normal 81.0-99.0 The [facility] Comment on above: Performed By: #### C OMID ####[facility] Qqfyogijav1165 [place], [place] [address]Zb. Bhavani Barragan METAMYELOCYTE # Normal The [facility] Comment on above: Performed By: #### C OMID ####[facility] [address] [place] [id number]. Yilan Barragan METAMYELOCYTE % Normal [facility] Comment on above: Performed By: #### C BCJERSON ####[facility] [address] [place] [phone]. Bhavani Barragan MONOM# 0.60 103/ul Normal 0.30-0.80 [facility] Comment on above: Performed By: #### C BCJERSON ####[facility] K[address]up[address]ce[address] [place] [phone]. Bhavani Barragan MONOM% 2.0 % Normal 1.7-12.0 [facility] Comment on above: Performed By: #### C OMID ####[facility] Qxqfmzknvi64[address] [place] [phone]. Bhavani Barragan MPV 9.7 fL Normal 9.5-13.5 [facility] Comment on above: Performed By: #### C OMID ####[facility] [address] [place], [place] [address]Dr. Bhavani Barragan MYELOCYTE # Normal [facility] Comment on above: Performed By: #### C OMID ####[facility] [address] [place], [place] [address]Dr. Bhavani Barragan MYELOCYTE % Normal [facility] Comment on above: Performed By: #### C OMID ####[facility] Q[address]yzm2[address] [place] [phone]. Bhavani Barragan NRBC Normal [facility] Comment on above: Performed By: #### C OMID ####[facility] [address] [place] [phone]. Bhavani Barragan PLT 436 103/ul Normal 150-450 The [facility] Comment on above: Performed By: #### C OMID ####[facility] Idsunujexn[address] [place], [place] [address]Dr. Bhavani Barragan RBC 4.66 106/ul Normal 4.20-5.40 [facility] Comment on above: Performed By: #### C OMID ####[facility] Urelraxair[address] [place], [place] [address]Dr. Bhavani Barragan RDW 15.2 % Critically high 11.0-15.0 The [facility] Comment on above: Performed By: #### C BCMAN ####[facility] [address]ppegcicki[address] [place] [phone]. Bhavani Barragan SEG # 28.09 103/ul Critically high 1.40-6.50 [facility] Comment on above: Performed By: #### C BCMAN ####[facility] [address]uxiilej[address] [place] [phone]. Bhavani Barragan SEG % 93.0 % Critically high 43.0-75.0 The [facility] Comment on above: Performed By: #### C OMID ####[facility] [address]tn[address]xwfjv[address] [place] [phone]. Bhavani Barragan WBC 30.2 103/ul Critically high 4.0-11.0 [facility] Comment on above: Result Comment: test repeated critical value verified Performed By: #### C OMID ####[facility] [address] [place], [place] [address]Dr. Bhavani Barragan CULTURE BLOODon 03-22-2022 Microscopic examination of blood, culture Culture Observations: NO GROWTH AT 5 DAYS. Normal The [facility] Comment on above: Performed By: #### B LDCX2 ####[facility] [address]yl[address] [place] [phone]. Bhavani Barragan Performed By: #### B LDCX1 ####[facility] Iphmegmmnr8[address] [place], [place] [address]Dr. Bhavani Barragan Covid-19 PCR (CVDTB)on SARS-CoV-2 (COVID-19) RNA MATTHEW+probe Ql (Unsp spec) Not detected Normal NOT DETECTED The [facility] Comment on above: Result Comment: When [...] for this test is supported by the Financial Assistance Specialist of Health and Human Service's declaration that [...] be used). Performed By: #### C VDTBH ####[facility] Aghzqfqobx[address] [place], [place] [address]Dr. Bhavani Barragan ER URINE PROFILEon 2 Bilirubin Ql (U) MODERATE Abnormal NEGATIVE The [facility] Comment on above: Performed By: #### U MICRO, ERUR ####[facility] Vrckdzjhwt[address] [place], [place] [address]Dr. Bhavani Barragan Clarity (U) CLEAR Normal CLEAR The [facility] Comment on above: Performed By: #### U MICRO, ERUR ####[facility] Jlefulpqpz[address] [place], [place] [address]Dr. Bhavani Barragan Color (U) YELLOW Normal YELLOW [facility] Comment on above: Performed By: #### U MICRO, ERUR ####[facility] J[address]xqskrpm[address] [place], [place] [address]Dr. Bhavani Barragan ERUAHD A micrscopic examination will be performed if indicated. Normal The [facility] Comment on above: Performed By: #### U MICRO, ERUR ####[facility] B[address]mmjmuha[address] [place], [place] [address]Dr. Bhavani Barragan Glucose Ql (U) Negative Normal NEGATIVE The [facility] Comment on above: Performed By: #### U MICRO, ERUR ####[facility] Ejohuvxxvv93[address] [place], [place] [address]Dr. Bhavani Barragan Hemoglobin Ql (U) TRACE-INTACT Abnormal NEGATIVE The [facility] Comment on above: Performed By: #### U MICRO, ERUR ####[facility] Wyfrlrftux177[address] [place], [place] [address]Dr. Bhavani Barragan Ketones Ql (U) Negative Normal NEGATIVE The [facility] Comment on above: Performed By: #### U MICRO, ERUR ####[facility] Tepopubrci[address] [place], [place] [address]Dr. Bhavani Barragan LEUKOCYTES LARGE Abnormal NEGATIVE [facility] Comment on above: Performed By: #### U MICRO, ERUR ####[facility] [address] [place] [address]Dr. Bhavani Barragan Nitrite Ql (U) Negative Normal NEGATIVE The [facility] Comment on above: Performed By: #### U MICRO, ERUR ####[facility] [address]wnto[address] [place] [address]Dr. Bhavani Barragan pH (U) 5.5 [pH] Normal 5-9 [facility] Comment on above: Performed By: #### U MICRO, ERUR ####[facility] Nbsuwejujm[address] [place], [place] [address]Dr. Bhavani Barragan Protein (U) [Mass/Vol] 30 mg/dL Abnormal NEGATIVE/ TRACE The [facility] Comment on above: Performed By: #### U MICRO, ERUR ####[facility] Oexrwpqufy[address] [place], [place] [address]Dr. Bhavani Barragan SPEC GRAVITY 1.020 Normal 1.005-<=1.02 5 [facility] Comment on above: Performed By: #### U MICRO, ERUR ####[facility] Gtjqa[address]vrq[address] [place], [place] [address]Dr. Bhavani Barragan UR MICRO IND INDICATED Normal [facility] Comment on above: Performed By: #### U MICRO, ERUR ####[facility] Fwjwlsyh[address] [place], [place] [address]Dr. Bhavani Barragan Urobilinogen Qn (U) 4 {Ridge'U}/dL Abnormal 0.2 - 1.0 The [facility] Comment on above: Performed By: #### U MICRO, ERUR ####[facility] Kcrawreywt[address] [place], [place] [address]Dr. Bhavani Barragan LACTATE/LACTIC ACIDon 2021 Lactate [Moles/Vol] 0.9 mmol/L Normal 0.4-2.[address] [facility] Comment on above: Performed By: #### L ACT ####[facility] Qccucnicqk[address] [place] [address]Dr. Bhavani Barragan Lactate [Moles/Vol] 1.2 mmol/L Normal 0.4-2.[address] [facility] Comment on above: Performed By: #### L ACT ####[facility] Efbetzophh[address] [place] [address]Dr. Bhavani Barragan POINT OF CARE GLUCOSEon Glucose [Mass/Vol] 188 mg/dL Critically high 74-106 [facility] Comment on above: Performed By: #### P OCGLUC ####[facility] Tsjnjiscfa[address] [place], [place] [address]DrLydia Barragan PROF 14(COMP METB)on 022 Albumin [Mass/Vol] 2.9 g/dL Critically low 3.4-5.0 [facility] Comment on above: Performed By: #### C MP ####[facility] [address]rm[address]qx[address] [place] [address]Dr. Bhavani Barragan Albumin/Globulin [Mass ratio] 0.7 {ratio} Normal [facility] Comment on above: Performed By: #### C MP ####[facility] [address]sejcjgro[address] [place] [address]Dr. Bhavani Barragan ALP [Catalytic activity/Vol] 372 U/L Critically high 46-116 [facility] Comment on above: Performed By: #### C MP ####[facility] Spikgzkodb[address] [place] [address]Dr. Bhavani Barragan ALT [Catalytic activity/Vol] 402 U/L Critically high 14-59 [facility] Comment on above: Performed By: #### C MP ####[facility] Fttpgqewgk[address] [place] [address]Dr. Bhavani Barragan Anion gap [Moles/Vol] 10.6 mmol/L Normal [facility] Comment on above: Performed By: #### C MP ####[facility] Srqigmftzz7576 [place] [address]Dr. Bhavani Barragan AST [Catalytic activity/Vol] 346 U/L Critically high 15-37 [facility] Comment on above: Performed By: #### C MP ####[facility] Utdpjnnvql25[address] [place] [address]Dr. Bhavani Barragan Bilirubin [Mass/Vol] 2.8 mg/dL Critically high 0.2-1.0 [facility] Comment on above: Performed By: #### C MP ####[facility] Mcjrfirnyw[address] [place], [place] [address]Dr. Bhavani Laurel Calcium [Mass/Vol] 7.9 mg/dL Critically low 8.5-10.1 Th e [facility] Comment on above: Performed By: #### C MP ####[facility] R[address]dxgfzouh[address] [place], [place] [address]Dr. Bhavani Laurel Chloride [Moles/Vol] 106 mmol/L Normal 98-107 [facility] Comment on above: Performed By: #### C MP ####[facility] [address]dijxoiynt[address] [place], [place] [address]Dr. Bhavani Laurel CO2 [Moles/Vol] 23.5 mmol/L Normal 21.0-32.0 [facility] Comment on above: Performed By: #### C MP ####[facility] Iekzzjcaiw0[address] [place], [place] [address]Dr. Bhavani Laurel Creatinine [Mass/Vol] 1.57 mg/dL Critically high 0.55-1.02 [facility] Comment on above: Performed By: #### C MP ####[facility] Fqzckvtuze[address] [place], [place] [address]Dr. Bhavani Laurel EGFR-AF MALDIVIAN 38 mL/min/1.73m2 Critically low >=60 The [facility] Comment on above: Performed By: #### C MP ####[facility] Faigoilwgt186[address] [place], [place] [address]Dr. Jayceeroxi Laurel EGFR-NON AF MALDIVIAN 32 mL/min/1.73m2 Critically low >=60 [facility] Comment on above: Performed By: #### C MP ####[facility] Uvngdsvexi[address] [place], [place] [address]Dr. Bhavani Barragan Globulin (S) [Mass/Vol] 4.0 g/dL Normal [facility] Comment on above: Performed By: #### C MP ####[facility] Dnnwbozgdf[address] [place], [place] [address]Dr. Bhavani Barragan Glucose [Mass/Vol] 151 mg/dL Critically high 74-106 [facility] Comment on above: Performed By: #### C MP ####[facility] Vovpxihenw[address] [place], [place] [address]Dr. Bhavani Barragan Potassium [Moles/Vol] 4.1 mmol/L Normal 3.5-5.1 [facility] Comment on above: Performed By: #### C MP ####[facility] Mmikgtgfig[address] [place], [place] [address]Dr. Bhavani Barragan Protein [Mass/Vol] 6.9 g/dL Normal 6.4-8.2 [facility] Comment on above: Performed By: #### C MP ####[facility] Nrthmdlafb[address] [place], [place] [address]Dr. Jayceeroxi Barragan Sodium [Moles/Vol] 136 mmol/L Normal 136-145 [facility] Comment on above: Performed By: #### C MP ####[facility] Uwdpahqrgl0[address] [place], [place] [address]Dr. Bhavani Barragan Urea nitrogen [Mass/Vol] 23.0 mg/dL Critically high 7.0-18.0 [facility] Comment on above: Performed By: #### C MP ####[facility] [address] [place], [place] [address]Dr. Bhavani Barragan Urea nitrogen/Creatinine [Mass ratio] 14.6 mg/mg Normal [facility] Comment on above: Performed By: #### C MP ####[facility] [address]jhxjdnh[address] [place], [place] [address]Dr. Bhavani Barragan URINE MICROSCOPIC ONLYon BACTERIA LARGE Abnormal NONE SEEN The [facility] Comment on above: Performed By: #### U MICRO, ERUR ####[facility] [address]owx[address]jvt[address] [place], [place] [address]Dr. Bhavani Barragan Bacteria identified Cx Nom (U) INDICATED Normal The [facility] Comment on above: Performed By: #### U MICRO, ERUR ####[facility] [address]kvjbber[address] [place] [address]Dr. Bhavani Barragan CAST NONE SEEN Normal NONE SEEN The [facility] Comment on above: Performed By: #### U MICRO, ERUR ####[facility] [address]uv[address] [place] [address]Dr. Bhavani Barragan Crystals LM Nom (Urine sed) NONE SEEN Normal NONE SEEN The [facility] Comment on above: Performed By: #### U MICRO, ERUR ####[facility] [address] [place] [address]Dr. Bhavani Barragan Epithelial cells LM Ql (Urine sed) FEW Abnormal NONE SEEN /RARE The [facility] Comment on above: Performed By: #### U MICRO, ERUR ####[facility] [address]xp[address]xre[address] [place] [address]Dr. Bhavani Barragan MUCOUS NONE SEEN Normal NONE SEEN The [facility] Comment on above: Performed By: #### U MICRO, ERUR ####[facility] [address] [place] [address]Dr. Bhavani Barragan RBC 2-5 Abnormal 0-2 [facility] Comment on above: Performed By: #### U MICRO, ERUR ####[facility] [address]ee[address] [place] [address]Dr. Bhavani Barragan WBC (U) [#/Vol] /uL Abnormal NONE SEEN The [facility] Comment on above: Performed By: #### U MICRO, ERUR ####[facility] Bj[address]wdxxpv4[address] [place] [address]Dr. Bhavani Barragan US SINGLE QUAD RT UPPERon US SINGLE QUAD RT UPPER Normal [facility] XR CHEST 1 Von 03-22-2022 XR CHEST 1 V Normal [facility] CBC AND ELECTRONIC DIFFon Basophils (Bld) [#/Vol] 0.23 10*3/uL High 0.00-0.15 [facility] Comment on above: Performed By: #### R ETIC, [id number] #### [facility] (DEFAULT) [address] [place] [address] Basophils/100 WBC (Bld) 0.9 % Normal [facility] Comment on above: Performed By: #### R ETIC, [id number] #### [facility] (DEFAULT) [address] [place] [address] DIFF STATUS Electronic Differential Normal [facility] Comment on above: Performed By: #### R ETIC, [id number] #### [facility] (DEFAULT) [address] [place] [address] Eosinophils (Bld) [#/Vol] 10*3/uL Normal 0.00-0.42 [facility] Comment on above: Performed By: #### R ETIC, [id number] #### [facility] (DEFAULT) [address] [address] Eosinophils/100 WBC (Bld) 0.0 % Normal [facility] Comment on above: Performed By: #### R ETIC, [id number] #### [facility] (DEFAULT) [address] [place] [address] Hematocrit (Bld) [Volume fraction] 52.1 % High 34.9-44.3 [facility] Comment on above: Performed By: #### R ETIC, [id number] #### [facility] (DEFAULT) [address] [place] [address] Hemoglobin (Bld) [Mass/Vol] 16.8 g/dL High 11.4-15.2 [facility] Comment on above: Performed By: #### R ETIC, [id number] #### [facility] (DEFAULT) [address] [address] Immature Grans % 1.3 % Normal [facility] Comment on above: Performed By: #### R ETIC, [id number] #### [facility] (DEFAULT) [address] [place] [address] Immature Grans Absolute 0.34 K/uL High <=0.09 [facility] Comment on above: Performed By: #### R ETIC, [id number] #### [facility] (DEFAULT) [address] [address] Lymphocytes (Bld) [#/Vol] 1.24 10*3/uL Normal 1.16-3.51 [facility] Comment on above: Performed By: #### R ETIC, [id number] #### [facility] (DEFAULT) [address] [address] Lymphocytes/100 WBC (Bld) 4.9 % Normal [facility] Comment on above: Performed By: #### R ETIC, [id number] #### [facility] (DEFAULT) [address] [address] MCV (RBC) [Entitic vol] 97.4 fL Normal 79.6-97.7 [facility] Comment on above: Performed By: #### R ETIC, [id number] #### [facility] (DEFAULT) [address] [address] Mean Cell Hgb 31.4 pg Normal 25.9-33.9 [facility] Comment on above: Performed By: #### R ETIC, [id number] #### [facility] (DEFAULT) [address] [address] Mean Cell Hgb Conc 32.2 g/dL Normal 31.4-35.9 [facility] Comment on above: Performed By: #### R ETIC, [id number] #### [facility] (DEFAULT) [address] [address] Monocytes (Bld) [#/Vol] 0.47 10*3/uL Normal 0.22-0.87 [facility] Comment on above: Performed By: #### R ETIC, [id number] #### [facility] (DEFAULT) [address] [address] Monocytes/100 WBC (Bld) 1.9 % Normal [facility] Comment on above: Performed By: #### R ETIC, [id number] #### [facility] (DEFAULT) [address] [place] [address] Nucleated RBC 0.1 /100 WBC Normal <=0.2 [facility] Comment on above: Performed By: #### R ETIC, [id number] #### [facility] (DEFAULT) [address] [place] [address] Platelet mean volume (Bld) [Entitic vol] 11.1 fL Normal 8.5-12.2 [facility] Comment on above: Performed By: #### R ETIC, [id number] #### [facility] (DEFAULT) [address] [address] Platelets (Bld) [#/Vol] 174 10*3/uL Normal 150-393 [facility] Comment on above: Performed By: #### R ETIC, [id number] #### [facility] (DEFAULT) [address] [place] [address] RBC (Bld) [#/Vol] 5.35 10*6/uL High 3.91-5.04 [facility] Comment on above: Performed By: #### R ETIC, [id number] #### [facility] (DEFAULT) [address] [place] [address] RBC Distribution 16.3 % High 10.8-14.9 [facility] Comment on above: Performed By: #### R ETIC, [id number] #### [facility] (DEFAULT) [address] [place] [address] Segs + Bands Auto 91.0 % Normal [facility] Comment on above: Performed By: #### R ETIC, [id number] #### [facility] (DEFAULT) [address] [place] [address] Segs + Bands,Absolute Auto 23.08 K/uL High 1.64-7.28 [facility] Comment on above: Performed By: #### R ETIC, [id number] #### [facility] (DEFAULT) [address] [place] [address] WBC (Bld) [#/Vol] 25.37 10*3/uL High 3.99-11.19 [facility] Comment on above: Performed By: #### R KERLINE, [id number] #### [facility] (DEFAULT) [address] [place] [address] CMPN WITHOUT GLUCOSEon 11-02 Albumin [Mass/Vol] 4.3 g/dL Normal 3.5-5.0 [facility] Comment on above: Performed By: #### C MPNG #### [facility] (DEFAULT) [address] [place] [address] ALP [Catalytic activity/Vol] 80 U/L Normal 32-126 [facility] Comment on above: Performed By: #### C MPNG #### [facility] (DEFAULT) [address] [place] [address] ALT [Catalytic activity/Vol] 8 U/L Low 9-48 [facility] Comment on above: Performed By: #### C MPNG #### [facility] [facility] (DEFAULT) [address] [place] [address] 77717 Anion gap [Moles/Vol] 13 mmol/L Normal 7-17 [facility] Comment on above: Performed By: #### C MPNG #### [facility] (DEFAULT) [address] [place] [address] 65385 AST [Catalytic activity/Vol] 14 U/L Normal 14-40 [facility] Comment on above: Performed By: #### C MPNG #### [facility] (DEFAULT) [address] [place] [address] 01594 Bilirubin [Mass/Vol] 0.5 mg/dL Normal <1.5 [facility] Comment on above: Performed By: #### C MPNG #### [facility] (DEFAULT) [address] [place] [address] 37675 Calcium [Mass/Vol] 9.1 mg/dL Normal 8.6-10.5 [facility] Comment on above: Performed By: #### C MPNG #### [facility] (DEFAULT) [address] [address] Chloride [Moles/Vol] 108 mmol/L Normal 98-108 [facility] Comment on above: Performed By: #### C MPNG #### [facility] (DEFAULT) [address] [place] [address] 04586 CO2 [Moles/Vol] 21 mmol/L Low 22-30 [facility] Comment on above: Performed By: #### C MPNG #### [facility] (DEFAULT) [address] [address] Creatinine [Mass/Vol] 1.36 mg/dL High 0.50-1.20 [facility] Comment on above: Performed By: #### C MPNG #### [facility] (DEFAULT) [address] [place] [address] 93932 EST GFR, 45 mL/min/1.73sqM Low >=60 [facility] Comment on above: Performed By: #### C MPNG #### [facility] (DEFAULT) [address] [address] EST GFR,Non 37 mL/min/1.73sqM Low >=60 [facility] Comment on above: Performed By: #### C MPNG #### [facility] (DEFAULT) [address] [address] Potassium [Moles/Vol] 5.0 mmol/L Normal 3.5-5.0 [facility] Comment on above: Performed By: #### C MPNG #### [facility] (DEFAULT) [address] [address] Protein [Mass/Vol] 7.6 g/dL Normal 6.4-8.3 [facility] Comment on above: Performed By: #### C MPNG #### [facility] (DEFAULT) [address] [place] [address] 20758 Sodium [Moles/Vol] 137 mmol/L Normal 133-143 [facility] Comment on above: Performed By: #### C MPNG #### [facility] (DEFAULT) [address] [place] [address] 62776 Urea nitrogen [Mass/Vol] 42 mg/dL High 7- [facility] Comment on above: Performed By: #### C MPNG #### [facility] (DEFAULT) [address] [place] [address] 57242 Urea nitrogen/Creatinine [Mass ratio] 31 mg/mg Normal [facility] Comment on above: Performed By: #### C MPNG #### [facility] (DEFAULT) [address] [place] [address] 29567 FERRITINon 11-02-2021 Ferritin [Mass/Vol] 19.2 ng/mL Normal 10.0-291.0 [facility] Comment on above: Performed By: #### F ERIB #### [facility] (DEFAULT) [address] [place] [address] 17365 RETICULOCYTESon 11-02-2021 Retic Absolute 0.1177 M/uL High 0.0324-0.114 2 [facility] Comment on above: Performed By: #### R ETIC, [id number] #### [facility] (DEFAULT) [address] [place] [address] 05513 Retic Count 2.20 % Normal 0.74-2.54 [facility] Comment on above: Performed By: #### R ETIC, [id number] #### [facility] (DEFAULT) [address] [place] [address] 49016 CBC AND ELECTRONIC DIFFon Basophils (Bld) [#/Vol] 0.20 10*3/uL High 0.00-0.15 [facility] Comment on above: Performed By: #### L [id number] #### [facility] (DEFAULT) [address] [place] [address] 92591 Basophils/100 WBC (Bld) 0.9 % Normal [facility] Comment on above: Performed By: #### L AB980 #### [facility] (DEFAULT) [address] [place] [address] 40795 DIFF STATUS Electronic Differential Normal [facility] Comment on above: Performed By: #### L [id number] #### [facility] (DEFAULT) [address] [place] [address] 68399 Eosinophils (Bld) [#/Vol] 10*3/uL Normal 0.00-0.42 [facility] Comment on above: Performed By: #### L [id number] #### [facility] (DEFAULT) [address] [place] [address] 12461 Eosinophils/100 WBC (Bld) 0.1 % Normal [facility] Comment on above: Performed By: #### L AB980 #### [facility] (DEFAULT) [address] [place] [address] 04223 Hematocrit (Bld) [Volume fraction] 47.4 % High 34.9-44.3 [facility] Comment on above: Performed By: #### L [id number] #### [facility] (DEFAULT) [address] [place] [address] 97388 Hemoglobin (Bld) [Mass/Vol] 15.4 g/dL High 11.4-15.2 [facility] Comment on above: Performed By: #### L AB980 #### [facility] (DEFAULT) [address] [place] [address] 10545 Immature Grans % 3.0 % Normal [facility] Comment on above: Performed By: #### L AB980 #### [facility] (DEFAULT) [address] [place] [address] 27608 Immature Grans Absolute 0.67 K/uL High <=0.09 [facility] Comment on above: Performed By: #### L [id number] #### [facility] (DEFAULT) [address] [place] [address] 24704 Lymphocytes (Bld) [#/Vol] 1.12 10*3/uL Low 1.16-3.51 [facility] Comment on above: Performed By: #### L AB980 #### [facility] (DEFAULT) [address] [place] [address] 74412 Lymphocytes/100 WBC (Bld) 5.0 % Normal [facility] Comment on above: Performed By: #### L AB980 #### [facility] (DEFAULT) [address] [place] [address] 55867 MCV (RBC) [Entitic vol] 101.5 fL High 79.6-97.7 [facility] Comment on above: Performed By: #### L AB980 #### [facility] (DEFAULT) [address] [address] Mean Cell Hgb 33.0 pg Normal 25.9-33.9 [facility] Comment on above: Performed By: #### L AB980 #### [facility] (DEFAULT) [address] [address] Mean Cell Hgb Conc 32.5 g/dL Normal 31.4-35.9 [facility] Comment on above: Performed By: #### L AB980 #### [facility] (DEFAULT) [address] [address] Monocytes (Bld) [#/Vol] 0.51 10*3/uL Normal 0.22-0.87 [facility] Comment on above: Performed By: #### L AB980 #### [facility] (DEFAULT) [address] [address] Monocytes/100 WBC (Bld) 2.3 % Normal [facility] Comment on above: Performed By: #### L AB980 #### [facility] (DEFAULT) [address] [address] Nucleated RBC 0.1 /100 WBC Normal <=0.2 [facility] Comment on above: Performed By: #### L AB980 #### [facility] (DEFAULT) [address] [place] [address] 57463 Platelet mean volume (Bld) [Entitic vol] 10.4 fL Normal 8.5-12.2 [facility] Comment on above: Performed By: #### L AB980 #### [facility] (DEFAULT) [address] [place] [address] 42940 Platelets (Bld) [#/Vol] 289 10*3/uL Normal 150-393 [facility] Comment on above: Performed By: #### L AB980 #### [facility] (DEFAULT) [address] [place] [address] 10333 RBC (Bld) [#/Vol] 4.67 10*6/uL Normal 3.91-5.04 [facility] Comment on above: Performed By: #### L AB980 #### [facility] (DEFAULT) [address] [place] [address] 55994 RBC Distribution 14.8 % Normal 10.8-14.9 [facility] Comment on above: Performed By: #### L AB980 #### [facility] (DEFAULT) [address] [place] [address] 44191 Segs + Bands Auto 88.7 % Normal [facility] Comment on above: Performed By: #### L AB980 #### [facility] (DEFAULT) [address] [place] [address] 82964 Segs + Bands,Absolute Auto 20.03 K/uL High 1.64-7.28 [facility] Comment on above: Performed By: #### L AB980 #### [facility] (DEFAULT) [address] [place] [address] 67789 WBC (Bld) [#/Vol] 22.56 10*3/uL High 3.99-11.19 [facility] Comment on above: Performed By: #### L AB980 #### [facility] (DEFAULT) [address] [place] [address] IMMUNOPHENOTYPING,PERIPH BLO ODon 08-17-2021 BKR DX CODE Use Ordering Normal [facility] Comment on above: Order Comment: IMMUN OPHENOTYPING DIAGNOSIS PATIENT NAME: MARÍA ELENA TAFOYA : 1940 ACCN#: [id number] REVIEWED BY: LAURA Moreno [id number] SAMPLE TYPE: Peripheral Blood LABORATORY INTERPRETATION: There [...] % are B cells (CD19+) with a [place]:Lambda ratio of 2:2 , 73.5 % are T cells (CD3+) with a CD4:CD8 ratio of 2.2 and an absolute CD4+/CD3+ count of 549 ABS/mm3 and 23.7 % are NK cells (positive for CD56 and/or CD16 and negative for CD3). ==== MARKER DESCRIPTION LYM REG% ABS/mm3 NORMAL % NML ABS ==== ABSOLUTE LYMPHOCYTE COUNT [phone] ==== CD19+ B CELL 4.4 49 2.0-21.0 [...] determined The Flow Cytometry Laboratory at [facility]. It has not been cleared or approved by the FDA. This laboratory is certified under the Clinical Laboratory Improvement Amendments (CLIA) as qualified to perform high complexity clinical laboratory testing. This test is used for clinical purposes. It should not be regarded as investigational or for research. The [facility] Flow Cytometry Laboratory lower limit of CLL MRD detection is 0.1% of the gated lymphocytes. Performed By: #### P BIPP #### [facility] (DEFAULT) [address] [place] [address] Flow Interpretation See Comment Normal [facility] Comment on above: Order Comment: IMMUN OPHENOTYPING DIAGNOSIS PATIENT NAME: MARÍA ELENA TAFOYA : 1940 ACCN#: [id number] REVIEWED BY: LAURA Moreno [id number] SAMPLE TYPE: Peripheral Blood LABORATORY INTERPRETATION: There [...] % are B cells (CD19+) with a [place]:Lambda ratio of 2:2 , 73.5 % are T cells (CD3+) with a CD4:CD8 ratio of 2.2 and an absolute CD4+/CD3+ count of 549 ABS/mm3 and 23.7 % are NK cells (positive for CD56 and/or CD16 and negative for CD3). ==== MARKER DESCRIPTION LYM REG% ABS/mm3 NORMAL % NML ABS ==== ABSOLUTE LYMPHOCYTE COUNT [phone] ==== CD19+ B CELL 4.4 49 2.0-21.0 [...] determined The [facility] at [facility]. It has not been cleared or approved by the FDA. This laboratory is certified under the Clinical Laboratory Improvement Amendments (CLIA) as qualified to perform high complexity clinical laboratory testing. This test is used for clinical purposes. It should not be regarded as investigational or for research. The [facility] Flow Cytometry Laboratory lower limit of CLL MRD detection is 0.1% of the gated lymphocytes. Performed By: #### P BIPP #### [facility] (DEFAULT) [address] [place] [address] Flow Interpreted by: Efrem Charlton MD [facility] Comment on above: Order Comment: IMMUN OPHENOTYPING DIAGNOSIS PATIENT NAME: MARÍA ELENA TAFOYA : 1940 ACCN#: [id number] REVIEWED BY: LAURA Moreno [id number] SAMPLE TYPE: Peripheral Blood LABORATORY INTERPRETATION: There [...] % are B cells (CD19+) with a [place]:Lambda ratio of 2:2 , 73.5 % are T cells (CD3+) with a CD4:CD8 ratio of 2.2 and an absolute CD4+/CD3+ count of 549 ABS/mm3 and 23.7 % are NK cells (positive for CD56 and/or CD16 and negative for CD3). ==== MARKER DESCRIPTION LYM REG% ABS/mm3 NORMAL % NML ABS ==== ABSOLUTE LYMPHOCYTE COUNT [phone] ==== CD19+ B CELL 4.4 49 2.0-21.0 [...] determined The Flow Cytometry Laboratory at [facility]. It has not been cleared or approved by the FDA. This laboratory is certified under the Clinical Laboratory Improvement Amendments (CLIA) as qualified to perform high complexity clinical laboratory testing. This test is used for clinical purposes. It should not be regarded as investigational or for research. The [facility] Flow Cytometry Laboratory lower limit of CLL MRD detection is 0.1% of the gated lymphocytes. Performed By: #### P BIPP #### [facility] (DEFAULT) [address] [address] [id number] MUTATION DETECTION , BLOODon 08-17-2021 Receiving Status Accessioned in Lab Normal [facility] Comment on above: Performed By: #### J AK2B #### [facility] (DEFAULT) [address] [address] Performed By: #### B CRSCR #### [facility] (DEFAULT) [address] [address] CBC with Differentialon 01-17 Basophils (Bld) [#/Vol] 0.20 thou/mcL Normal 0.00-0.20 [facility] Comment on above: Performed By: #### 5 7021-8 #### [facility] [address] [place] [address] 04183 Basophils/100 WBC (Bld) 0.9 % Normal 0.0-2.0 [facility] Comment on above: Performed By: #### 5 7021-8 #### [facility] [address] [place] [address]95 Eosinophils (Bld) [#/Vol] 0.00 thou/mcL Normal 0.00-0.70 [facility] Comment on above: Performed By: #### 5 7021-8 #### [facility] [address] [place] [address] 80072 Eosinophils/100 WBC (Bld) 0.1 % Normal 0.0-7.0 [facility] Comment on above: Performed By: #### 5 7021-8 #### [facility] [address] [place] [address] 23034 Erythrocyte distribution width (RBC) [Entitic vol] 17.1 % High 11.0-14.8 [facility] Comment on above: Performed By: #### 5 7021-8 #### [facility] [address] [place] [address] Hematocrit (Bld) [Volume fraction] 36.3 % Normal 35.0-45.0 [facility] Comment on above: Performed By: #### 5 7021-8 #### [facility] [address] [place] [address] 93616 Hemoglobin (Bld) [Mass/Vol] 11.8 g/dL Low 12.0-16.0 [facility] Comment on above: Performed By: #### 5 7021-8 #### [address] [address] Lymphocytes (Bld) [#/Vol] 1.40 thou/mcL Normal 1.00-4.80 [facility] Comment on above: Performed By: #### 5 7021-8 #### [address] [address] Lymphocytes/100 WBC (Bld) 7.1 % Low 22.0-44.0 [facility] Comment on above: Performed By: #### 5 7021-8 #### [address] [address] MCH (RBC) [Entitic mass] 33.0 Picograms Normal 27.0-34.0 [facility] Comment on above: Performed By: #### 5 7021-8 #### [address] [address] MCHC (RBC) [Mass/Vol] 32.5 g/dL Normal 32.0-36.0 [facility] Comment on above: Performed By: #### 5 7021-8 #### [address] [address] MCV (RBC) [Entitic vol] 101.7 fL High 80.0-97.0 [facility] Comment on above: Performed By: #### 5 7021-8 #### [address] [address] Monocytes (Bld) [#/Vol] 0.50 thou/mcL Normal 0.00-0.90 [facility] Comment on above: Performed By: #### 5 7021-8 #### [facility] [address] [place] [address]75 Monocytes/100 WBC (Bld) 2.7 % Normal 0.0-12.0 [facility] Comment on above: Performed By: #### 5 7021-8 #### [facility] [address] [place] [address] 81061 Neutrophils (Bld) [#/Vol] 18.10 thou/mcL High 1.80-7.70 [facility] Comment on above: Performed By: #### 5 7021-8 #### [address] [address] Neutrophils/100 WBC (Bld) 89.2 % High 40.0-70.0 [facility] Comment on above: Performed By: #### 5 7021-8 #### [address] [address] Platelet mean volume (Bld) [Entitic vol] 8.2 fL Normal 6.2-12.1 [facility] Comment on above: Performed By: #### 5 7021-8 #### [address] [address] Platelets (Bld) [#/Vol] 355 thou/mcL Normal 142-424 [facility] Comment on above: Performed By: #### 5 7021-8 #### [facility] [address] [place] [address] 85355 RBC (Bld) [#/Vol] 3.57 million/mcL Low 3.80-5.10 [facility] Comment on above: Performed By: #### 5 7021-8 #### [facility] [address] [place] [address] 98499 WBC (Bld) [#/Vol] 20.3 thou/mcL High 4.6-10.2 [facility] Comment on above: Performed By: #### 5 7021-8 #### [facility] [address] [place] [address] Ammoniaon 09-27-2020 Ammonia (P) [Mass/Vol] 21 umol/L Normal 9-30 [facility] Comment on above: Order Comment: Items in this order include: Ammonia Testing Performed By: [facility] [address] [place] [address]. [place] [address] Dr. Donnie Jean, Tissue Recovery Technician Items in this order include: Ammonia Testing Performed By: [facility] [address] [place], [place] [id number] Dr. Donnie Jean, Tissue Recovery Technician Performed By: #### C 709 #### [facility] [address] [place] [address] [place] [address] B12/Folateon 09-27-2020 Cobalamin (Vitamin B12) [Mass/Vol] 683 pg/mL Normal 239-931 [facility] Comment on above: Order Comment: Items in this order include: Culture, Urine Testing Performed By: [facility] [address] [place], [place] [id number] Dr. Donnie Jean, Tissue Recovery Technician Result Comment: Plea se note: Over the counter high dose supplements of Biotin that are 20 to 300 times greater than the adequate daily intake of 30 mcg/day for adults may cause a bias of 10% or more to be observed in the measured Vitamin B-12 concentrations. Performed By: #### C 734 #### [facility] [address] [place] [address] [address] [place] [address] Folate 9.26 ng/mL Normal 2.80-20.00 [facility] Comment on above: Order Comment: Items in this order include: Culture, Urine Testing Performed By: [facility] [address] [place] [address] [address] [address] Donnie Jean, Tissue Recovery Technician Result Comment: Plea se note: Over the counter high dose supplements of Biotin that are 20 to 300 times greater than the adequate daily intake of 30 mcg/day for adults may cause a bias of 10% or more to be observed in the measured Folate concentrations. Performed By: #### C 734 #### [facility] [address] [place] [address] CBC with differentialon 09-18 Erythrocyte distribution width (RBC) [Ratio] 15.4 % Normal 11.5-15.5 [facility] Comment on above: Order Comment: Items in this order include: Culture, Urine Testing Performed By: [facility] [address] [place] [address] Dr. Donnie Jean, Tissue Recovery Technician Performed By: #### C 734 #### [facility] [address] [place] [address] Hematocrit (Bld) [Volume fraction] 39.8 % Normal 37.0-47.0 [facility] Comment on above: Order Comment: Items in this order include: Culture, Urine Testing Performed By: [facility] [address] [place] [address]. [place] [address] Dr. Donnie Jean, Tissue Recovery Technician Performed By: #### C 734 #### [facility] [address] [place] [address] Rd [address] [place] [address] Hemoglobin (Bld) [Mass/Vol] 12.3 g/dL Normal 11.5-15.5 [facility] Comment on above: Order Comment: Items in this order include: Culture, Urine Testing Performed By: [facility] [address] [place] [address] [place] [address] Dr. Donnie Jean, Tissue Recovery Technician Performed By: #### C 734 #### [facility] [address] [place] [address] [place] [address] MCH (RBC) [Entitic mass] 34.2 pg High 27.0-31.0 [facility] Comment on above: Order Comment: Items in this order include: Culture, Urine Testing Performed By: [facility] [address] [place] [address] [place] [address] Dr. Donnie Jean, Tissue Recovery Technician Performed By: #### C 734 #### [facility] [address] [place] [address] MCHC (RBC) [Mass/Vol] 30.9 g/dL Low 32.0-36.0 [facility] Comment on above: Order Comment: Items in this order include: Culture, Urine Testing Performed By: [facility] [address] [place] [address]. [place] [address] Dr. Donnie Jean, Tissue Recovery Technician Performed By: #### C 734 #### [facility] [address] [place] [address] [address] [place] [address] MCV (RBC) [Entitic vol] 110.6 fL High 78.0-100.0 [facility] Comment on above: Order Comment: Items in this order include: Culture, Urine Testing Performed By: [facility] [address] [place] [address]. [place] [address] Dr. Donnie Jean, Tissue Recovery Technician Performed By: #### C 734 #### [facility] [address] [place] [address] [address] [place] [address] Platelet mean volume (Bld) [Entitic vol] 10.2 fL Normal 8.9-12.6 [facility] Comment on above: Order Comment: Items in this order include: Culture, Urine Testing Performed By: [facility] [address] [place] [address]. [place] [address] Dr. Donnie Jean, Tissue Recovery Technician Performed By: #### C 734 #### [facility] [address] [place] [address] [address] [place] [address] Platelets (Bld) [#/Vol] 423 K [facility] High 130-400 [facility] Comment on above: Order Comment: Items in this order include: Culture, Urine Testing Performed By: [facility] [address] [place] [address]. [place] [address] Dr. Donnie Jean, Tissue Recovery Technician Performed By: #### C 734 #### [facility] [address] [place] [address] [address] [place] [address] RBC (Bld) [#/Vol] 3.60 M CUM[facility] Low 3.80-5.10 [facility] Comment on above: Order Comment: Items in this order include: Culture, Urine Testing Performed By: [facility] [address] [place] [address]. [place] [address] Dr. Donnie Jean, Tissue Recovery Technician Performed By: #### C 734 #### [facility] [address] [place] [address] [address] [place] [address] WBC (Bld) [#/Vol] 28.2 K CUM[facility] Critically high 3.8-10.6 [facility] Comment on above: Order Comment: Items in this order include: Culture, Urine Testing Performed By: [facility] [address] [place] [address]. [place] [address] Dr. Donnie Jean, Tissue Recovery Technician Performed By: #### C 734 #### [facility]. [address] [place] [address] [address] [place] [address] Comprehensive Metabolic Pane [facility] 09-27-2020 Albumin [Mass/Vol] 4.4 g/dL Normal 3.5-5.0 [facility] Comment on above: Order Comment: Items in this order include: Comprehensive Metabolic Panel, CBC with differential, TSH w/ reflex to FT4, B12/Folate, , , , Manual Differential if Indicated, Slide Scan, MicroscopeTesting Performed By: [facility] [address] [place] [address]. [place] [address] Dr. Donnie Jean, Tissue Recovery Technician Performed By: #### C 709 #### [facility], [facility]. [address] [place] [address] [address] [place] [address] Alk Phos 68 U/L Normal 23-159 [facility] Comment on above: Order Comment: Items in this order include: Comprehensive Metabolic Panel, CBC with differential, TSH w/ reflex to FT4, B12/Folate, , , , Manual Differential if Indicated, Slide Scan, MicroscopeTesting Performed By: [facility] [address] [place] [address]. [place] [address] Dr. Donnie Jean, Tissue Recovery Technician Performed By: #### C 709 #### [facility] [address] [place] [address] [address] [place] [address] ALT [Catalytic activity/Vol] 15 U/L Normal 0-38 [facility] Comment on above: Order Comment: Items in this order include: Comprehensive Metabolic Panel, CBC with differential, TSH w/ reflex to FT4, B12/Folate, , , , Manual Differential if Indicated, Slide Scan, MicroscopeTesting Performed By: [facility] [address] [place] [address] Donnie Jean, Tissue Recovery Technician Performed By: #### C 709 #### [facility], [facility]. [address] [place] [address] [address] [place] [address] AST [Catalytic activity/Vol] 21 U/L Normal 11-43 [facility] Comment on above: Order Comment: Items in this order include: Comprehensive Metabolic Panel, CBC with differential, TSH w/ reflex to FT4, B12/Folate, , , , Manual Differential if Indicated, Slide Scan, MicroscopeTesting Performed By: [facility] [address] [place] [address] Donnie Jean, Tissue Recovery Technician Performed By: #### C 709 #### [facility]. [address] [place] [address] [address] [place] [address] Bilirubin [Mass/Vol] 0.5 mg/dL Normal 0.2-1.3 [facility] Comment on above: Order Comment: Items in this order include: Comprehensive Metabolic Panel, CBC with differential, TSH w/ reflex to FT4, B12/Folate, , , , Manual Differential if Indicated, Slide Scan, MicroscopeTesting Performed By: [facility] [address] [place] [address] Donnie Jean, Tissue Recovery Technician Performed By: #### C 709 #### [facility]. [address] [place] [address] [address] [place] [address] Calcium [Mass/Vol] 9.7 mg/dL Normal 8.5-10.5 [facility] Comment on above: Order Comment: Items in this order include: Comprehensive Metabolic Panel, CBC with differential, TSH w/ reflex to FT4, B12/Folate, , , , Manual Differential if Indicated, Slide Scan, MicroscopeTesting Performed By: [facility] [address] [place] [address]. [place] [address] Dr. Donnie Jean, Tissue Recovery Technician Performed By: #### C 709 #### [facility] [address] [place] [address] [address] [place] [address] Chloride [Moles/Vol] 111 mmol/L High 98-107 [facility] Comment on above: Order Comment: Items in this order include: Comprehensive Metabolic Panel, CBC with differential, TSH w/ reflex to FT4, B12/Folate, , , , Manual Differential if Indicated, Slide Scan, MicroscopeTesting Performed By: [facility] [address] [place] [address] Dr. Donnie Jean, Tissue Recovery Technician Performed By: #### C 709 #### [facility] [address] [place] [address] [address] [place] [address] CO2 [Moles/Vol] 16.0 mmol/L Low 21.0-32.0 [facility] Comment on above: Order Comment: Items in this order include: Comprehensive Metabolic Panel, CBC with differential, TSH w/ reflex to FT4, B12/Folate, , , , Manual Differential if Indicated, Slide Scan, MicroscopeTesting Performed By: [facility] [address] [place] [address] Donnie Jean, Tissue Recovery Technician Performed By: #### C 709 #### [facility] [address] [place] [address] [address] [place] [address] Creatinine [Mass/Vol] 1.6 mg/dL High 0.1-1.2 [facility] Comment on above: Order Comment: Items in this order include: Comprehensive Metabolic Panel, CBC with differential, TSH w/ reflex to FT4, B12/Folate, , , , Manual Differential if Indicated, Slide Scan, MicroscopeTesting Performed By: [facility] [address] [place] [address] Donnie Jean, Tissue Recovery Technician Performed By: #### C 709 #### [facility]. [address] [place] [address] [place] [address] GFR/1.73 sq M.predicted MDRD (S/P/Bld) [Vol rate/Area] 31 mL/min per 1.73 Low >60 [facility] Comment on above: Order Comment: Items in this order include: Comprehensive Metabolic Panel, CBC with differential, TSH w/ reflex to FT4, B12/Folate, , , , Manual Differential if Indicated, Slide Scan, MicroscopeTesting Performed By: [facility] [address] [place] [address] Dr. Donnie Jean, Tissue Recovery Technician Result Comment: The GFR estimate is not adjusted for race. If the patient's race is -[place]uvian, the GFR estimate must be multiplied by a factor of 1.21. Performed By: #### C 709 #### [facility]. [address] [place] [address] [address] [place] [address] Glucose [Mass/Vol] 112 mg/dL High 74-100 [facility] Comment on above: Order Comment: Items in this order include: Comprehensive Metabolic Panel, CBC with differential, TSH w/ reflex to FT4, B12/Folate, , , , Manual Differential if Indicated, Slide Scan, MicroscopeTesting Performed By: [facility] [address] [place] [address] Dr. Donnie Jena, Tissue Recovery Technician Performed By: #### C 709 #### [facility]. [address] [place] [address] [place] [address] Potassium [Moles/Vol] 5.4 mmol/L High 3.5-5.3 [facility] Comment on above: Order Comment: Items in this order include: Comprehensive Metabolic Panel, CBC with differential, TSH w/ reflex to FT4, B12/Folate, , , , Manual Differential if Indicated, Slide Scan, MicroscopeTesting Performed By: [facility] [address] [place] [address] Donnie Jean, Tissue Recovery Technician Performed By: #### C 709 #### [facility]. [address] [place] [address] [address] [place] [address] Protein [Mass/Vol] 7.4 g/dL Normal 6.3-8.4 [facility] Comment on above: Order Comment: Items in this order include: Comprehensive Metabolic Panel, CBC with differential, TSH w/ reflex to FT4, B12/Folate, , , , Manual Differential if Indicated, Slide Scan, MicroscopeTesting Performed By: [facility] [address] [place] [address] Dr. Donnie Jean, Tissue Recovery Technician Performed By: #### C 709 #### [facility] [address] [place] [address] [place] [address] Sodium [Moles/Vol] 140 mmol/L Normal 135-145 [facility] Comment on above: Order Comment: Items in this order include: Comprehensive Metabolic Panel, CBC with differential, TSH w/ reflex to FT4, B12/Folate, , , , Manual Differential if Indicated, Slide Scan, MicroscopeTesting Performed By: [facility] [address] [place] [address] Donnie Jean, Tissue Recovery Technician Performed By: #### C 709 #### [facility]. [address] [place] [address] [place] [address] Urea nitrogen [Mass/Vol] 40 mg/dL High 6-22 [facility] Comment on above: Order Comment: Items in this order include: Comprehensive Metabolic Panel, CBC with differential, TSH w/ reflex to FT4, B12/Folate, , , , Manual Differential if Indicated, Slide Scan, MicroscopeTesting Performed By: [facility] [address] [place] [address] Donnie Jean, Tissue Recovery Technician Performed By: #### C 709 #### [facility]. [address] [place] [address] [place] [address] Culture, Urineon 09-27-2020 RPT Microbiology results Normal [facility] Comment on above: Order Comment: Items in this order include: Culture, Urine Testing Performed By: [facility] [address] [place] [address] Donnie Jean, Tissue Recovery Technician Result Comment: Kaylee l Result: No growth at 24 hours. Performed By: #### C 734 #### [facility] [address] [place] [address] Manual Differential if Indic atedon 09-27-2020 Anisocytosis Ql (Bld) SLIGHT Normal [facility] Comment on above: Order Comment: Items in this order include: Culture, Urine Testing Performed By: [facility] [address] [place] [address]. [place] [address] Dr. Donnie Jean, Tissue Recovery Technician Performed By: #### C 734 #### [facility] [address] [place] [address] [place] [address] [place] Cells SLIGHT Normal [facility] Comment on above: Order Comment: Items in this order include: Culture, Urine Testing Performed By: [facility] [address] [place] [address]. [place] [address] Dr. Donnie Jean, Tissue Recovery Technician Performed By: #### C 734 #### [facility] [address] [place] [address] [place] [address] Lymphocytes 2 % Low 20-51 [facility] Comment on above: Order Comment: Items in this order include: Culture, Urine Testing Performed By: [facility] [address] [place] [address]. [place] [address] Dr. Donnie Jean, Tissue Recovery Technician Performed By: #### C 734 #### [facility] [address] [place] [address] [address] [place] [address] Macrocytes Ql (Bld) SLIGHT Normal [facility] Comment on above: Order Comment: Items in this order include: Culture, Urine Testing Performed By: [facility] [address] [place] [address]. [place] [address] Dr. Donnie Jean, Tissue Recovery Technician Performed By: #### C 734 #### [facility] [address] [place] [address] Metamyelocytes 1 % Normal <2 [facility] Comment on above: Order Comment: Items in this order include: Culture, Urine Testing Performed By: [facility] [address] [place] [address] Dr. Donnie Jean, Tissue Recovery Technician Performed By: #### C 734 #### [facility] [address] [place] [address] Monocytes 2 % Normal 2-9 [facility] Comment on above: Order Comment: Items in this order include: Culture, Urine Testing Performed By: [facility] [address] [place] [address] Dr. Donnie Jean, Tissue Recovery Technician Performed By: #### C 734 #### [facility] [address] [place] [address] Neutrophils 95 % High 42-75 [facility] Comment on above: Order Comment: Items in this order include: Culture, Urine Testing Performed By: [facility] [address] [place] [address] Dr. Donnie Jean, Tissue Recovery Technician Performed By: #### C 734 #### [facility] [address] [place] [address] Ovalocytes SLIGHT Normal [facility] Comment on above: Order Comment: Items in this order include: Culture, Urine Testing Performed By: [facility] [address] [place] [place] [address] Dr. Donnie Jean, Tissue Recovery Technician Performed By: #### C 734 #### [facility] [address] [facility] [address] [facility] [address] [place] [address] Poikilocytosis MODERATE Normal [facility] Comment on above: Order Comment: Items in this order include: Culture, Urine Testing Performed By: [facility] [address] [place] [address] Dr. Donnie Jean, Tissue Recovery Technician Performed By: #### C 734 #### [facility] [address] [facility] [address] [place] [address] Polychromasia SLIGHT Normal [facility] Comment on above: Order Comment: Items in this order include: Culture, Urine Testing Performed By: [facility] [address] [place] [address]. [place] [address] Dr. Donnie Jean, Tissue Recovery Technician Performed By: #### C 734 #### [facility] [address] [place] [address] [address] [place] [address] Target Cells SLIGHT Normal [facility] Comment on above: Order Comment: Items in this order include: Culture, Urine Testing Performed By: [facility] [address] [place] [address]. [place] [address] Dr. Donnie Jean, Tissue Recovery Technician Performed By: #### C 734 #### [facility] [address] [place] [address] [address] [place] [address] Slide Scan, Microscopeon Platelets (Bld) [#/Vol] RESULTS MAY BE INACCURATE DUE TO PLATELET CLUMPING; SUGGEST REDRAW PLT COUNT IN BLUE-TOP (CITRATED TUBE). ALL OTHER CBC PARAMETERS ARE UNAFFECTED BY THIS IN VITRO PHENOMENON. Normal [facility] Comment on above: Order Comment: Items in this order include: Culture, Urine Testing Performed By: [facility] [address] [place] [address]. [place] [address] Dr. Donnie Jean, Tissue Recovery Technician Performed By: #### C 734 #### [facility] [address] [place] [address] [address] [place] [address] TSH w/ reflex to FT4on 09-27 TSH Qn 4.30 MIU/mL Normal 0.50-6.00 [facility] Comment on above: Order Comment: Items in this order include: Culture, Urine Testing Performed By: [facility] [address] [place] [address]. [place] [address] Dr. Donnie Jean, Tissue Recovery Technician Performed By: #### C 734 #### [facility] [address] [place] [address] [place] [address] CBC with differentialon Erythrocyte distribution width (RBC) [Ratio] 15.4 % Normal 11.5-15.5 [facility] Comment on above: Order Comment: Items in this order include: Comprehensive Metabolic Panel, Lipid Panel, Uric Acid , Vit D 25 [place] (Total), CBC with differential, HgbA1C, , , , Slide Scan if Indicated, Manual Differential if IndicatedTesting Performed By: [facility] [address] [place] [address]. [place] [address] Dr. Donnie Jean, Tissue Recovery Technician Performed By: #### C 709 #### [facility]. [address] [place] [address] [place] [address] Hematocrit (Bld) [Volume fraction] 37.9 % Normal 37.0-47.0 [facility] Comment on above: Order Comment: Items in this order include: Comprehensive Metabolic Panel, Lipid Panel, Uric Acid , Vit D 25 [place] (Total), CBC with differential, HgbA1C, , , , Slide Scan if Indicated, Manual Differential if IndicatedTesting Performed By: [facility] [address] [place] [address] [address] Donnie Jean, Tissue Recovery Technician Performed By: #### C 709 #### [facility]. [address] [place] [address] [place] [address] Hemoglobin (Bld) [Mass/Vol] 12.1 g/dL Normal 11.5-15.5 [facility] Comment on above: Order Comment: Items in this order include: Comprehensive Metabolic Panel, Lipid Panel, Uric Acid , Vit D 25 [place] (Total), CBC with differential, HgbA1C, , , , Slide Scan if Indicated, Manual Differential if IndicatedTesting Performed By: [facility] [address] [place] [address] Donnie Jean, Tissue Recovery Technician Performed By: #### C 709 #### [facility]. [address] [place] [address] [place] [address] MCH (RBC) [Entitic mass] 35.7 pg High 27.0-31.0 [facility] Comment on above: Order Comment: Items in this order include: Comprehensive Metabolic Panel, Lipid Panel, Uric Acid , Vit D 25 [place] (Total), CBC with differential, HgbA1C, , , , Slide Scan if Indicated, Manual Differential if IndicatedTesting Performed By: [facility] [address] [place] [address] Dr. Donnie Jean, Tissue Recovery Technician Performed By: #### C 709 #### [facility]. [address] [place] [address] [address] [place] [address] MCHC (RBC) [Mass/Vol] 31.9 g/dL Low 32.0-36.0 [facility] Comment on above: Order Comment: Items in this order include: Comprehensive Metabolic Panel, Lipid Panel, Uric Acid , Vit D 25 [place] (Total), CBC with differential, HgbA1C, , , , Slide Scan if Indicated, Manual Differential if IndicatedTesting Performed By: [facility] [address] [place], [place] [id number] Dr. Donnie Jean, Tissue Recovery Technician Performed By: #### C 709 #### [facility]. [address] [place] [address] [place] [address] MCV (RBC) [Entitic vol] 111.8 fL High 78.0-100.0 [facility] Comment on above: Order Comment: Items in this order include: Comprehensive Metabolic Panel, Lipid Panel, Uric Acid , Vit D 25 [place] (Total), CBC with differential, HgbA1C, , , , Slide Scan if Indicated, Manual Differential if IndicatedTesting Performed By: [facility] [address] [place] [address] [address] [address] Donnie Jean, Tissue Recovery Technician Performed By: #### C 709 #### [facility]. [address] [place] [address] [address] [place] [address] Platelet mean volume (Bld) [Entitic vol] 10.5 fL Normal 8.9-12.6 [facility] Comment on above: Order Comment: Items in this order include: Comprehensive Metabolic Panel, Lipid Panel, Uric Acid , Vit D 25 [place] (Total), CBC with differential, HgbA1C, , , , Slide Scan if Indicated, Manual Differential if IndicatedTesting Performed By: [facility] [address] [place] [address]. [place] [address] Dr. Donnie Jean, Tissue Recovery Technician Performed By: #### C 709 #### [facility]. [address] [place] [address] [address] [place] [address] Platelets (Bld) [#/Vol] 356 K [facility] Normal 130-400 [facility] Comment on above: Order Comment: Items in this order include: Comprehensive Metabolic Panel, Lipid Panel, Uric Acid , Vit D 25 [place] (Total), CBC with differential, HgbA1C, , , , Slide Scan if Indicated, Manual Differential if IndicatedTesting Performed By: [facility] [address] [place] [address]. [place] [address] Dr. Donnie Jean, Tissue Recovery Technician Performed By: #### C 709 #### [facility]. [address] [place] [address] [address] [place] [address] RBC (Bld) [#/Vol] 3.39 M [facility] Low 3.80-5.10 [facility] Comment on above: Order Comment: Items in this order include: Comprehensive Metabolic Panel, Lipid Panel, Uric Acid , Vit D 25 [place] (Total), CBC with differential, HgbA1C, , , , Slide Scan if Indicated, Manual Differential if IndicatedTesting Performed By: [facility] [address] [place] [address]. [place] [address] Dr. Donnie Jean, Tissue Recovery Technician Performed By: #### C 709 #### [facility]. [address] [place] [address] [address] [place] [address] WBC (Bld) [#/Vol] 18.3 K [facility] High 3.8-10.6 [facility] Comment on above: Order Comment: Items in this order include: Comprehensive Metabolic Panel, Lipid Panel, Uric Acid , Vit D 25 [place] (Total), CBC with differential, HgbA1C, , , , Slide Scan if Indicated, Manual Differential if IndicatedTesting Performed By: [facility] [address] [place] [address]. [place] [address] Dr. Donine Jean, Tissue Recovery Technician Performed By: #### C 709 #### [facility] [address] [place] [address] [address] [place] [address] Comprehensive Metabolic Pane donnie 06-21-2020 Albumin [Mass/Vol] 4.4 g/dL Normal 3.5-5.0 [facility] Comment on above: Order Comment: Items in this order include: Comprehensive Metabolic Panel, Lipid Panel, Uric Acid , Vit D 25 [place] (Total), CBC with differential, HgbA1C, , , , Slide Scan if Indicated, Manual Differential if IndicatedTesting Performed By: [facility] [address] [place] [address]. [place] [address] Dr. Donnie Jean, Lab DirectorItems in this order include: Comprehensive Metabolic Panel, Lipid Panel, Uric Acid , Vit D 25 [place] (Total), CBC with differential, HgbA1C, , , , Manual Differential if Indicated Performed By: #### C 709 #### [facility] [address] [place] [address] [address] [place] [address] Alk Phos 66 U/L Normal 23-159 [facility] Comment on above: Order Comment: Items in this order include: Comprehensive Metabolic Panel, Lipid Panel, Uric Acid , Vit D 25 [place] (Total), CBC with differential, HgbA1C, , , , Slide Scan if Indicated, Manual Differential if IndicatedTesting Performed By: [facility] [address] [place] [address]. [place] [address] Dr. Donnie Jean, Lab DirectorItems in this order include: Comprehensive Metabolic Panel, Lipid Panel, Uric Acid , Vit D 25 [place] (Total), CBC with differential, HgbA1C, , , , Manual Differential if Indicated Performed By: #### C 709 #### [facility] [address] [place] [address] [address] [place] [address] ALT [Catalytic activity/Vol] 9 U/L Normal 0-38 [facility] Comment on above: Order Comment: Items in this order include: Comprehensive Metabolic Panel, Lipid Panel, Uric Acid , Vit D 25 [place] (Total), CBC with differential, HgbA1C, , , , Slide Scan if Indicated, Manual Differential if IndicatedTesting Performed By: [facility] [address] [place] [address]. [place] [address] Dr. Donnie Jean, Lab DirectorItems in this order include: Comprehensive Metabolic Panel, Lipid Panel, Uric Acid , Vit D 25 [place] (Total), CBC with differential, HgbA1C, , , , Manual Differential if Indicated Performed By: #### C 709 #### [facility] [address] [place] [address] [place] [address] AST [Catalytic activity/Vol] 17 U/L Normal 11-43 [facility] Comment on above: Order Comment: Items in this order include: Comprehensive Metabolic Panel, Lipid Panel, Uric Acid , Vit D 25 [place] (Total), CBC with differential, HgbA1C, , , , Slide Scan if Indicated, Manual Differential if IndicatedTesting Performed By: [facility] [address] [place] [address] [address] [address] Donnie Jean, Lab DirectorItems in this order include: Comprehensive Metabolic Panel, Lipid Panel, Uric Acid , Vit D 25 [place] (Total), CBC with differential, HgbA1C, , , , Manual Differential if Indicated Performed By: #### C 709 #### [facility] [address] [place] [address] [place] [address] Bilirubin [Mass/Vol] 0.3 mg/dL Normal 0.2-1.3 [facility] Comment on above: Order Comment: Items in this order include: Comprehensive Metabolic Panel, Lipid Panel, Uric Acid , Vit D 25 [place] (Total), CBC with differential, HgbA1C, , , , Slide Scan if Indicated, Manual Differential if IndicatedTesting Performed By: [facility] [address] [place] [address]. [place] [address] Dr. Donnie Jean, Lab DirectorItems in this order include: Comprehensive Metabolic Panel, Lipid Panel, Uric Acid , Vit D 25 [place] (Total), CBC with differential, HgbA1C, , , , Manual Differential if Indicated Performed By: #### C 709 #### [facility] [address] [place] [address] [address] [place] [address] Calcium [Mass/Vol] 10.1 mg/dL Normal 8.5-10.5 [facility] Comment on above: Order Comment: Items in this order include: Comprehensive Metabolic Panel, Lipid Panel, Uric Acid , Vit D 25 [place] (Total), CBC with differential, HgbA1C, , , , Slide Scan if Indicated, Manual Differential if IndicatedTesting Performed By: [facility] [address] [place] [address]. [place] [address] Dr. Donnie Jean, Lab DirectorItems in this order include: Comprehensive Metabolic Panel, Lipid Panel, Uric Acid , Vit D 25 [place] (Total), CBC with differential, HgbA1C, , , , Manual Differential if Indicated Performed By: #### C 709 #### [facility] [address] [place] [address] [address] [place] [address] Chloride [Moles/Vol] 106 mmol/L Normal 98-107 [facility] Comment on above: Order Comment: Items in this order include: Comprehensive Metabolic Panel, Lipid Panel, Uric Acid , Vit D 25 [place] (Total), CBC with differential, HgbA1C, , , , Slide Scan if Indicated, Manual Differential if IndicatedTesting Performed By: [facility] [address] [place] [id number] Donnie Jean, Lab DirectorItems in this order include: Comprehensive Metabolic Panel, Lipid Panel, Uric Acid , Vit D 25 [place] (Total), CBC with differential, HgbA1C, , , , Manual Differential if Indicated Performed By: #### C 709 #### [facility] [address] [place] [address] [address] [place] [address] CO2 [Moles/Vol] 17.0 mmol/L Low 21.0-32.0 [facility] Comment on above: Order Comment: Items in this order include: Comprehensive Metabolic Panel, Lipid Panel, Uric Acid , Vit D 25 [place] (Total), CBC with differential, HgbA1C, , , , Slide Scan if Indicated, Manual Differential if IndicatedTesting Performed By: [facility] [address] [place] [address]. [place] [address] Dr. Donnie Jean, Lab DirectorItems in this order include: Comprehensive Metabolic Panel, Lipid Panel, Uric Acid , Vit D 25 [place] (Total), CBC with differential, HgbA1C, , , , Manual Differential if Indicated Performed By: #### C 709 #### [facility]. [address] [place] [address] [address] [place] [address] Creatinine [Mass/Vol] 1.5 mg/dL High 0.1-1.2 [facility] Comment on above: Order Comment: Items in this order include: Comprehensive Metabolic Panel, Lipid Panel, Uric Acid , Vit D 25 [place] (Total), CBC with differential, HgbA1C, , , , Slide Scan if Indicated, Manual Differential if IndicatedTesting Performed By: [facility] [address] [place], [place] [id number] Dr. Donnie Jean, Lab DirectorItems in this order include: Comprehensive Metabolic Panel, Lipid Panel, Uric Acid , Vit D 25 [place] (Total), CBC with differential, HgbA1C, , , , Manual Differential if Indicated Performed By: #### C 709 #### [facility]. [address] [place] [address] [address] [place] [address] GFR/1.73 sq M.predicted MDRD (S/P/Bld) [Vol rate/Area] 33 mL/min per 1.73 Low >60 [facility] Comment on above: Order Comment: Items in this order include: Comprehensive Metabolic Panel, Lipid Panel, Uric Acid , Vit D 25 [place] (Total), CBC with differential, HgbA1C, , , , Slide Scan if Indicated, Manual Differential if IndicatedTesting Performed By: [facility] [address] [place], [place] [id number] Dr. Donnie Jean, Lab DirectorItems in this order include: Comprehensive Metabolic Panel, Lipid Panel, Uric Acid , Vit D 25 [place] (Total), CBC with differential, HgbA1C, , , , Manual Differential if Indicated Result Comment: The GFR estimate is not adjusted for race. If the patient's race is -Peruvian, the GFR estimate must be multiplied by a factor of 1.21. Performed By: #### C 709 #### [facility]. [address] [place] [address] [address] [place] [address] Glucose [Mass/Vol] 108 mg/dL High 74-100 [facility] Comment on above: Order Comment: Items in this order include: Comprehensive Metabolic Panel, Lipid Panel, Uric Acid , Vit D 25 [place] (Total), CBC with differential, HgbA1C, , , , Slide Scan if Indicated, Manual Differential if IndicatedTesting Performed By: [facility] [address] [place], [place] [id number] Dr. Donnie Jean, Lab DirectorItems in this order include: Comprehensive Metabolic Panel, Lipid Panel, Uric Acid , Vit D 25 [place] (Total), CBC with differential, HgbA1C, , , , Manual Differential if Indicated Performed By: #### C 709 #### [facility]. [address] [place] [address] [address] [place] [address] Potassium [Moles/Vol] 4.7 mmol/L Normal 3.5-5.3 [facility] Comment on above: Order Comment: Items in this order include: Comprehensive Metabolic Panel, Lipid Panel, Uric Acid , Vit D 25 [place] (Total), CBC with differential, HgbA1C, , , , Slide Scan if Indicated, Manual Differential if IndicatedTesting Performed By: [facility] [address] [place] [address] [id number] [address] Donnie Jean, Lab DirectorItems in this order include: Comprehensive Metabolic Panel, Lipid Panel, Uric Acid , Vit D 25 [place] (Total), CBC with differential, HgbA1C, , , , Manual Differential if Indicated Performed By: #### C 709 #### [facility]. [address] [place] [address] [address] [place] [address] Protein [Mass/Vol] 7.4 g/dL Normal 6.3-8.4 [facility] Comment on above: Order Comment: Items in this order include: Comprehensive Metabolic Panel, Lipid Panel, Uric Acid , Vit D 25 [place] (Total), CBC with differential, HgbA1C, , , , Slide Scan if Indicated, Manual Differential if IndicatedTesting Performed By: [facility] [address] [place] [address] Donnie Jean, Lab DirectorItems in this order include: Comprehensive Metabolic Panel, Lipid Panel, Uric Acid , Vit D 25 [place] (Total), CBC with differential, HgbA1C, , , , Manual Differential if Indicated Performed By: #### C 709 #### [facility] [address] [place] [address] [address] [place] [address] Sodium [Moles/Vol] 139 mmol/L Normal 135-145 [facility] Comment on above: Order Comment: Items in this order include: Comprehensive Metabolic Panel, Lipid Panel, Uric Acid , Vit D 25 [place] (Total), CBC with differential, HgbA1C, , , , Slide Scan if Indicated, Manual Differential if IndicatedTesting Performed By: [facility] [address] [place] [address]. [place] [address] Dr. Donnie Jean, Lab DirectorItems in this order include: Comprehensive Metabolic Panel, Lipid Panel, Uric Acid , Vit D 25 [place] (Total), CBC with differential, HgbA1C, , , , Manual Differential if Indicated Performed By: #### C 709 #### [facility] [address] [place] [address] [place] [address] Urea nitrogen [Mass/Vol] 36 mg/dL High 6-22 [facility] Comment on above: Order Comment: Items in this order include: Comprehensive Metabolic Panel, Lipid Panel, Uric Acid , Vit D 25 [place] (Total), CBC with differential, HgbA1C, , , , Slide Scan if Indicated, Manual Differential if IndicatedTesting Performed By: [facility] [address] [place] [address]. [place] [address] Dr. Donnie Jean, Lab DirectorItems in this order include: Comprehensive Metabolic Panel, Lipid Panel, Uric Acid , Vit D 25 [place] (Total), CBC with differential, HgbA1C, , , , Manual Differential if Indicated Performed By: #### C 709 #### [facility]. [address] [place] [address] [address] [place] [address] YlmU2Sen 06-21-2020 HbA1c (Bld) [Mass fraction] 6.3 % High <5.7 [facility] Comment on above: Order Comment: Items in this order include: Comprehensive Metabolic Panel, Lipid Panel, Uric Acid , Vit D 25 [place] (Total), CBC with differential, HgbA1C, , , , Slide Scan if Indicated, Manual Differential if IndicatedTesting Performed By: [facility] [address] [place] [address]. [place] [address] Dr. Donnie Jean, Lab DirectorItems in this order include: Comprehensive Metabolic Panel, Lipid Panel, Uric Acid , Vit D 25 [place] (Total), CBC with differential, HgbA1C, , , , Manual Differential if Indicated Result Comment: Refe rence Interval: Normal: below 5.7%. Prediabetes: 5.7% to 6.4%. Diabetes: 6.5% or above. Performed By: #### C 709 #### [facility] [address] [place] [address] [place] [address] Lipid Panelon 06-21-2020 Cholesterol [Mass/Vol] 124 mg/dL Normal <200 [facility] Comment on above: Performed By: #### C 709 #### [facility] [address] [place] [address] [place] [address] Cholesterol in HDL [Mass/Vol] 34 mg/dL Low >50 [facility] Comment on above: Performed By: #### C 709 #### [facility] [address] [place] [address] [place] [address] Cholesterol in LDL [Mass/Vol] 49 mg/dL Normal <130 [facility] Comment on above: Performed By: #### C 709 #### [facility] [address] [place] [address] [place] [address] Cholesterol.total/C holesterol in HDL [Mass ratio] 3.6 {ratio} Normal <4.0 [facility] Comment on above: Performed By: #### C 709 #### [facility] [address] [place] [address] [place] [address] Non-HDL Chol 90 Normal LDL Goal + 30 [facility] Comment on above: Result Comment: LDL and Non-HDL goal dependent upon individual risk Performed By: #### C 709 #### [facility] [address] [place] [address] Triglyceride [Mass/Vol] 206 mg/dL High <150 [facility] Comment on above: Performed By: #### C 709 #### [facility] [address] [place] [address] VLDL-Calc 41 mg/dl High <30 [facility] Comment on above: Performed By: #### C 709 #### [facility] [address] [place] [address] [address] [place] [address] Manual Differential if Indic atedon 06-21-2020 Anisocytosis Ql (Bld) MODERATE Normal [facility] Comment on above: Order Comment: Items in this order include: Comprehensive Metabolic Panel, Lipid Panel, Uric Acid , Vit D 25 [place] (Total), CBC with differential, HgbA1C, , , , Slide Scan if Indicated, Manual Differential if IndicatedTesting Performed By: [facility] [address] [place] [address] [address] [address] Donnie Jean, Lab DirectorItems in this order include: Comprehensive Metabolic Panel, Lipid Panel, Uric Acid , Vit D 25 [place] (Total), CBC with differential, HgbA1C, , , , Manual Differential if IndicatedReceived comment: User comments: Slide comments: Performed By: #### C 709 #### [facility] [address] [place] [address] [address] [place] [address] Basophils 1 % Normal [facility] Comment on above: Order Comment: Items in this order include: Comprehensive Metabolic Panel, Lipid Panel, Uric Acid , Vit D 25 [place] (Total), CBC with differential, HgbA1C, , , , Slide Scan if Indicated, Manual Differential if IndicatedTesting Performed By: [facility] [address] [place] [address] [address] [address] Donnie Jean, Lab DirectorItems in this order include: Comprehensive Metabolic Panel, Lipid Panel, Uric Acid , Vit D 25 [place] (Total), CBC with differential, HgbA1C, , , , Manual Differential if IndicatedReceived comment: User comments: Slide comments: Performed By: #### C 709 #### [facility] [address] [place] [address] [address] [place] [address] Lymphocytes 7 % Low 20-51 [facility] Comment on above: Order Comment: Items in this order include: Comprehensive Metabolic Panel, Lipid Panel, Uric Acid , Vit D 25 [place] (Total), CBC with differential, HgbA1C, , , , Slide Scan if Indicated, Manual Differential if IndicatedTesting Performed By: [facility] [address] [place] [address]. [place] [address] Dr. Donnie Jean, Lab DirectorItems in this order include: Comprehensive Metabolic Panel, Lipid Panel, Uric Acid , Vit D 25 [place] (Total), CBC with differential, HgbA1C, , , , Manual Differential if IndicatedReceived comment: User comments: Slide comments: Performed By: #### C 709 #### [facility] [address] [place] [address] [address] [place] [address] Macrocytes Ql (Bld) SLIGHT Normal [facility] Comment on above: Order Comment: Items in this order include: Comprehensive Metabolic Panel, Lipid Panel, Uric Acid , Vit D 25 [place] (Total), CBC with differential, HgbA1C, , , , Slide Scan if Indicated, Manual Differential if IndicatedTesting Performed By: [facility] [address] [place] [address]. [place] [address] Dr. Donnie Jean, Lab DirectorItems in this order include: Comprehensive Metabolic Panel, Lipid Panel, Uric Acid , Vit D 25 [place] (Total), CBC with differential, HgbA1C, , , , Manual Differential if IndicatedReceived comment: User comments: Slide comments: Performed By: #### C 709 #### [facility] [address] [place] [address] [address] [place] [address] Metamyelocytes 3 % High <2 [facility] Comment on above: Order Comment: Items in this order include: Comprehensive Metabolic Panel, Lipid Panel, Uric Acid , Vit D 25 [place] (Total), CBC with differential, HgbA1C, , , , Slide Scan if Indicated, Manual Differential if IndicatedTesting Performed By: [facility] [address] [place] [address]. [place] [address] Dr. Donnie Jean, Lab DirectorItems in this order include: Comprehensive Metabolic Panel, Lipid Panel, Uric Acid , Vit D 25 [place] (Total), CBC with differential, HgbA1C, , , , Manual Differential if IndicatedReceived comment: User comments: Slide comments: Performed By: #### C 709 #### [facility] [address] [place] [address] [place] [address] Microcytes SLIGHT Normal SLIGHT [facility] Comment on above: Order Comment: Items in this order include: Comprehensive Metabolic Panel, Lipid Panel, Uric Acid , Vit D 25 [place] (Total), CBC with differential, HgbA1C, , , , Slide Scan if Indicated, Manual Differential if IndicatedTesting Performed By: [facility] [address] [place] [address]. [place] [address] Dr. Donnie Jean, Lab DirectorItems in this order include: Comprehensive Metabolic Panel, Lipid Panel, Uric Acid , Vit D 25 [place] (Total), CBC with differential, HgbA1C, , , , Manual Differential if IndicatedReceived comment: User comments: Slide comments: Performed By: #### C 709 #### [facility] [address] [place] [address] [place] [address] Neutrophils 89 % High 42-75 [facility] Comment on above: Order Comment: Items in this order include: Comprehensive Metabolic Panel, Lipid Panel, Uric Acid , Vit D 25 [place] (Total), CBC with differential, HgbA1C, , , , Slide Scan if Indicated, Manual Differential if IndicatedTesting Performed By: [facility] [address] [place] [address]. [place] [address] Dr. Donnie Jean, Lab DirectorItems in this order include: Comprehensive Metabolic Panel, Lipid Panel, Uric Acid , Vit D 25 [place] (Total), CBC with differential, HgbA1C, , , , Manual Differential if IndicatedReceived comment: User comments: Slide comments: Performed By: #### C 709 #### [facility] [address] [place] [address] [address] [place] [address] Polychromasia SLIGHT Normal [facility] Comment on above: Order Comment: Items in this order include: Comprehensive Metabolic Panel, Lipid Panel, Uric Acid , Vit D 25 [place] (Total), CBC with differential, HgbA1C, , , , Slide Scan if Indicated, Manual Differential if IndicatedTesting Performed By: [facility] [address] [place] [address] [address] [address] Donnie Jean, Lab DirectorItems in this order include: Comprehensive Metabolic Panel, Lipid Panel, Uric Acid , Vit D 25 [place] (Total), CBC with differential, HgbA1C, , , , Manual Differential if IndicatedReceived comment: User comments: Slide comments: Performed By: #### C 709 #### [facility] [address] [place] [address] [place] [address] Uric Acidon 06-21-2020 Urate [Mass/Vol] 9.0 mg/dL High 2.5-6.2 [facility] Comment on above: Performed By: #### C 709 #### [facility] [address] [place] [address] [place] [address] Vit D 25 [place] (Total)on 2019 Vit D 25 [place] (Total) 36.9 ng/ml Normal 31.0-100.0 [facility] Comment on above: Order Comment: Items in this order include: Comprehensive Metabolic Panel, Lipid Panel, Uric Acid , Vit D 25 [place] (Total), CBC with differential, HgbA1C, , , , Slide Scan if Indicated, Manual Differential if IndicatedTesting Performed By: [facility] [address] [place] [address]. [place] [address] Dr. Donnie Jean, Lab DirectorItems in this order include: Comprehensive Metabolic Panel, Lipid Panel, Uric Acid , Vit D 25 [place] (Total), CBC with differential, HgbA1C, , , , Manual Differential if Indicated Result Comment: Defi ciency <10 ng/ml Insufficiency 10-30 ng/ml Sufficiency 31-100 ng/ml Toxicity >100 ng/ml Performed By: #### C 709 #### [facility] [address] [place] [address] [place] [address] [place] Mammo Digital Diag RT w t virgilio (NB)on 02-03-2020 SHADY Mammo Digital Diag RT w mark (NB) EXAMINATION TYPE: SHADY Mammo Digital Diag RT w mark [...] [id number] - [id number] FINAL REPORT Dictated By: Jazlny Stuart MD 02/03/2020 14:27 Assigned Physician: Jazlyn Stuart MD Reviewed and Electronically Signed By: Jazlyn Stuart MD 02/03/2020 14:28 Transcribed by: OSKAR 02/03/2020 14:27 Technologist: PRINCE Cam [facility] Mammo Digital Screen bila t [...] will be immediately mailed to the patient. [facility] thanks you for the opportunity to care for your patient. Workstation ID: [id number] - [id number] FINAL REPORT Dictated By: Jazlyn Stuart MD 02/01/2020 14:28 Assigned Physician: Jazlyn Stuart MD Reviewed and Electronically Signed By: Jazlyn Stuart MD 02/01/2020 14:29 Transcribed by: OSKAR 02/01/2020 14:28 Technologist: JEROME Cam [facility] CBC with differentialon Erythrocyte distribution width (RBC) [Ratio] 14.7 % Normal 11.5-15.5 [facility] Comment on above: Order Comment: Items in this order include: Cholesterol, Comprehensive Metabolic Panel, Direct LDL , HDL, Uric Acid , CBC with differential, HgbA1C, , , Slide Scan if Indicated, Manual Differential if Indicated Testing Performed By: [facility] [address] [place], [place] [address] [place] [address] Dr. Donnie Jean, Tissue Recovery Technician Items in this order include: Cholesterol, Comprehensive Metabolic Panel, Direct LDL , HDL, Uric Acid , CBC with differential, HgbA1C, , , Slide Scan if Indicated, Manual Differential if Indicated Testing Performed By: [facility] [address] [place], [place] [address] centerK[facility] [place] [address] Dr. Donnie Jean, Tissue Recovery Technician Items in this order include: Cholesterol, Comprehensive Metabolic Panel, Direct LDL , HDL, Uric Acid , CBC with differential, HgbA1C, , , Slide Scan if Indicated, Manual Differential if Indicated Testing Performed By: [facility] [address] [place], [place] [address] centerK[facility] [place] [address] Dr. Donnie Jean, Tissue Recovery Technician Performed By: #### C 120, C141, C116, C406, C4521, C118, C47, C4523, C215 #### [facility]. [address] [place] [address] [address] [place] [address] Hematocrit (Bld) [Volume fraction] 40.6 % Normal 37.0-47.0 [facility] Comment on above: Order Comment: Items in this order include: Cholesterol, Comprehensive Metabolic Panel, Direct LDL , HDL, Uric Acid , CBC with differential, HgbA1C, , , Slide Scan if Indicated, Manual Differential if Indicated Testing Performed By: [facility] [address] [place], [place] [address] centerK[facility] [place] [address] Dr. Donnie Jean, Tissue Recovery Technician Items in this order include: Cholesterol, Comprehensive Metabolic Panel, Direct LDL , HDL, Uric Acid , CBC with differential, HgbA1C, , , Slide Scan if Indicated, Manual Differential if Indicated Testing Performed By: [facility] [address] [place] [address] Dr. Donnie Jean, Tissue Recovery Technician Items in this order include: Cholesterol, Comprehensive Metabolic Panel, Direct LDL , HDL, Uric Acid , CBC with differential, HgbA1C, , , Slide Scan if Indicated, Manual Differential if Indicated Testing Performed By: [facility] [address] [place] [address] Dr. Donnie Jean, Tissue Recovery Technician Performed By: #### C 120, C141, C116, C406, C4521, C118, C47, C4523, C215 #### [facility]. [address] [place] [address] [address] [place] [address] Hemoglobin (Bld) [Mass/Vol] 12.9 g/dL Normal 11.5-15.5 [facility] Comment on above: Order Comment: Items in this order include: Cholesterol, Comprehensive Metabolic Panel, Direct LDL , HDL, Uric Acid , CBC with differential, HgbA1C, , , Slide Scan if Indicated, Manual Differential if Indicated Testing Performed By: [facility] [address] [place] [address] Dr. Donnie Jean, Tissue Recovery Technician Items in this order include: Cholesterol, Comprehensive Metabolic Panel, Direct LDL , HDL, Uric Acid , CBC with differential, HgbA1C, , , Slide Scan if Indicated, Manual Differential if Indicated Testing Performed By: [facility] [address] [place] [address] Dr. Donnie Jean, Tissue Recovery Technician Items in this order include: Cholesterol, Comprehensive Metabolic Panel, Direct LDL , HDL, Uric Acid , CBC with differential, HgbA1C, , , Slide Scan if Indicated, Manual Differential if Indicated Testing Performed By: [facility] [address] [place] [address] Dr. Donnie Jean, Tissue Recovery Technician Performed By: #### C 120, C141, C116, C406, C4521, C118, C47, C4523, C215 #### [facility] [address] [place] [address] MCH (RBC) [Entitic mass] 35.1 pg High 27.0-31.0 [facility] Comment on above: Order Comment: Items in this order include: Cholesterol, Comprehensive Metabolic Panel, Direct LDL , HDL, Uric Acid , CBC with differential, HgbA1C, , , Slide Scan if Indicated, Manual Differential if Indicated Testing Performed By: [facility] [address] [place] [address]. [place] [address] Dr. Donnie Jean, Tissue Recovery Technician Items in this order include: Cholesterol, Comprehensive Metabolic Panel, Direct LDL , HDL, Uric Acid , CBC with differential, HgbA1C, , , Slide Scan if Indicated, Manual Differential if Indicated Testing Performed By: [facility] [address] [place] [address]. [place] [address] Dr. Donnie Jean, Tissue Recovery Technician Items in this order include: Cholesterol, Comprehensive Metabolic Panel, Direct LDL , HDL, Uric Acid , CBC with differential, HgbA1C, , , Slide Scan if Indicated, Manual Differential if Indicated Testing Performed By: [facility] [address] [place] [address]. [place] [address] Dr. Donnie Jaen, Tissue Recovery Technician Performed By: #### C 120, C141, C116, C406, C4521, C118, C47, C4523, C215 #### [facility] [address] [place] [address] [address] [place] [address] MCHC (RBC) [Mass/Vol] 31.8 g/dL Low 32.0-36.0 [facility] Comment on above: Order Comment: Items in this order include: Cholesterol, Comprehensive Metabolic Panel, Direct LDL , HDL, Uric Acid , CBC with differential, HgbA1C, , , Slide Scan if Indicated, Manual Differential if Indicated Testing Performed By: [facility] [address] [place] [address]. [place] [address] Dr. Donnie Jean, Tissue Recovery Technician Items in this order include: Cholesterol, Comprehensive Metabolic Panel, Direct LDL , HDL, Uric Acid , CBC with differential, HgbA1C, , , Slide Scan if Indicated, Manual Differential if Indicated Testing Performed By: [facility] [address] [place] [address]. [place] [address] Dr. Donnie Jean, Tissue Recovery Technician Items in this order include: Cholesterol, Comprehensive Metabolic Panel, Direct LDL , HDL, Uric Acid , CBC with differential, HgbA1C, , , Slide Scan if Indicated, Manual Differential if Indicated Testing Performed By: [facility] [address] [place] [address]. [place] [address] Dr. Donnie Jean, Tissue Recovery Technician Performed By: #### C 120, C141, C116, C406, C4521, C118, C47, C4523, C215 #### [facility] [address] [place] [address] [address] [place] [address] MCV (RBC) [Entitic vol] 110.6 fL High 78.0-100.0 [facility] Comment on above: Order Comment: Items in this order include: Cholesterol, Comprehensive Metabolic Panel, Direct LDL , HDL, Uric Acid , CBC with differential, HgbA1C, , , Slide Scan if Indicated, Manual Differential if Indicated Testing Performed By: [facility] [address] [place] [address] Dr. Donnie Jean, Tissue Recovery Technician Items in this order include: Cholesterol, Comprehensive Metabolic Panel, Direct LDL , HDL, Uric Acid , CBC with differential, HgbA1C, , , Slide Scan if Indicated, Manual Differential if Indicated Testing Performed By: [facility] [address] [place] [address] Dr. Donnie Jean, Tissue Recovery Technician Items in this order include: Cholesterol, Comprehensive Metabolic Panel, Direct LDL , HDL, Uric Acid , CBC with differential, HgbA1C, , , Slide Scan if Indicated, Manual Differential if Indicated Testing Performed By: [facility] [address] [place] [address] Dr. Donnie Jean, Tissue Recovery Technician Performed By: #### C 120, C141, C116, C406, C4521, C118, C47, C4523, C215 #### [facility] [address] [place] [address] [address] [place] [address] Platelet mean volume (Bld) [Entitic vol] 10.6 fL Normal 8.9-12.6 [facility] Comment on above: Order Comment: Items in this order include: Cholesterol, Comprehensive Metabolic Panel, Direct LDL , HDL, Uric Acid , CBC with differential, HgbA1C, , , Slide Scan if Indicated, Manual Differential if Indicated Testing Performed By: [facility] [address] [place] [address]. [place] [address] Dr. Donnie Jean, Tissue Recovery Technician Items in this order include: Cholesterol, Comprehensive Metabolic Panel, Direct LDL , HDL, Uric Acid , CBC with differential, HgbA1C, , , Slide Scan if Indicated, Manual Differential if Indicated Testing Performed By: [facility] [address] [place] [address] Dr. Donnie Jaen, Tissue Recovery Technician Items in this order include: Cholesterol, Comprehensive Metabolic Panel, Direct LDL , HDL, Uric Acid , CBC with differential, HgbA1C, , , Slide Scan if Indicated, Manual Differential if Indicated Testing Performed By: [facility] [address] [place], [place] [id number] Dr. Donnie Jean, Tissue Recovery Technician Performed By: #### C 120, C141, C116, C406, C4521, C118, C47, C4523, C215 #### [facility] [address] [place] [address] Platelets (Bld) [#/Vol] 302 K CUMM Normal 130-400 [facility] Comment on above: Order Comment: Items in this order include: Cholesterol, Comprehensive Metabolic Panel, Direct LDL , HDL, Uric Acid , CBC with differential, HgbA1C, , , Slide Scan if Indicated, Manual Differential if Indicated Testing Performed By: [facility] [address] [place], [place] [id number] Dr. Donnie Jean, Tissue Recovery Technician Items in this order include: Cholesterol, Comprehensive Metabolic Panel, Direct LDL , HDL, Uric Acid , CBC with differential, HgbA1C, , , Slide Scan if Indicated, Manual Differential if Indicated Testing Performed By: [facility] [address] [place] [address] [address] [address] Donnie Jean, Tissue Recovery Technician Items in this order include: Cholesterol, Comprehensive Metabolic Panel, Direct LDL , HDL, Uric Acid , CBC with differential, HgbA1C, , , Slide Scan if Indicated, Manual Differential if Indicated Testing Performed By: [facility] [address] [place] [address]. [place] [address] Dr. Donnie Jean, Tissue Recovery Technician Performed By: #### C 120, C141, C116, C406, C4521, C118, C47, C4523, C215 #### [facility] [address] [place] [address] RBC (Bld) [#/Vol] 3.67 M CUMM Low 3.80-5.10 [facility] Comment on above: Order Comment: Items in this order include: Cholesterol, Comprehensive Metabolic Panel, Direct LDL , HDL, Uric Acid , CBC with differential, HgbA1C, , , Slide Scan if Indicated, Manual Differential if Indicated Testing Performed By: [facility] [address] [place] [address]. [place] [address] Dr. Donnie Jean, Tissue Recovery Technician Items in this order include: Cholesterol, Comprehensive Metabolic Panel, Direct LDL , HDL, Uric Acid , CBC with differential, HgbA1C, , , Slide Scan if Indicated, Manual Differential if Indicated Testing Performed By: [facility] [address] [place] [address]. [place] [address] Dr. Donnie Jean, Tissue Recovery Technician Items in this order include: Cholesterol, Comprehensive Metabolic Panel, Direct LDL , HDL, Uric Acid , CBC with differential, HgbA1C, , , Slide Scan if Indicated, Manual Differential if Indicated Testing Performed By: [facility] [address] [place] [address]. [place] [address] Dr. Donnie Jean, Tissue Recovery Technician Performed By: #### C 120, C141, C116, C406, C4521, C118, C47, C4523, C215 #### [facility] [address] [place] [address] WBC (Bld) [#/Vol] 19.7 K CUMM High 3.8-10.6 [facility] Comment on above: Order Comment: Items in this order include: Cholesterol, Comprehensive Metabolic Panel, Direct LDL , HDL, Uric Acid , CBC with differential, HgbA1C, , , Slide Scan if Indicated, Manual Differential if Indicated Testing Performed By: [facility] [address] [place] [address] Dr. Donnie Jean, Tissue Recovery Technician Items in this order include: Cholesterol, Comprehensive Metabolic Panel, Direct LDL , HDL, Uric Acid , CBC with differential, HgbA1C, , , Slide Scan if Indicated, Manual Differential if Indicated Testing Performed By: [facility] [place] [address] Dr. Donnie Jean, Tissue Recovery Technician Items in this order include: Cholesterol, Comprehensive Metabolic Panel, Direct LDL , HDL, Uric Acid , CBC with differential, HgbA1C, , , Slide Scan if Indicated, Manual Differential if Indicated Testing Performed By: [facility] [place] [address] Dr. Donnie Jean, Tissue Recovery Technician Performed By: #### C 120, C141, C116, C406, C4521, C118, C47, C4523, C215 #### [facility] [address] [place] [address] Cholesterolon 01-18-2020 Cholesterol [Mass/Vol] 112 mg/dL Normal <200 [facility] Comment on above: Order Comment: Items in this order include: Cholesterol, Comprehensive Metabolic Panel, Direct LDL , HDL, Uric Acid , CBC with differential, HgbA1C, , , Slide Scan if Indicated, Manual Differential if Indicated Testing Performed By: [facility] [address] [place] [address] Dr. Donnie Jean, Tissue Recovery Technician Performed By: #### C 120, C141, C116, C406, C4521, C118, C47, C4523, C215 #### [facility] [address] [place] [address] Comprehensive Metabolic Pane donnie 01-18-2020 Albumin [Mass/Vol] 4.0 g/dL Normal 3.5-5.0 [facility] Comment on above: Performed By: #### C 120, C141, C116, C406, C4521, C118, C47, C4523, C215 #### [facility] [address] [place] [address] Alk Phos 74 U/L Normal 23-159 [facility] Comment on above: Performed By: #### C 120, C141, C116, C406, C4521, C118, C47, C4523, C215 #### [facility] [address] [place] [address] ALT [Catalytic activity/Vol] 18 U/L Normal 0-38 [facility] Comment on above: Performed By: #### C 120, C141, C116, C406, C4521, C118, C47, C4523, C215 #### [facility] [address] [place] [address] AST [Catalytic activity/Vol] 22 U/L Normal 11-43 [facility] Comment on above: Performed By: #### C 120, C141, C116, C406, C4521, C118, C47, C4523, C215 #### [facility] [address] [place] [address] Bilirubin [Mass/Vol] 0.6 mg/dL Normal 0.2-1.3 [facility] Comment on above: Performed By: #### C 120, C141, C116, C406, C4521, C118, C47, C4523, C215 #### [facility] [address] [place] [address] Calcium [Mass/Vol] 9.2 mg/dL Normal 8.5-10.5 [facility] Comment on above: Performed By: #### C 120, C141, C116, C406, C4521, C118, C47, C4523, C215 #### [facility] [address] [place] [address] Chloride [Moles/Vol] 101 mmol/L Normal 98-107 [facility] Comment on above: Performed By: #### C 120, C141, C116, C406, C4521, C118, C47, C4523, C215 #### [facility] [address] [place] [address] CO2 [Moles/Vol] 22.0 mmol/L Normal 21.0-32.0 [facility] Comment on above: Performed By: #### C 120, C141, C116, C406, C4521, C118, C47, C4523, C215 #### [facility] [address] [place] [address] Creatinine [Mass/Vol] 1.2 mg/dL Normal 0.1-1.2 [facility] Comment on above: Performed By: #### C 120, C141, C116, C406, C4521, C118, C47, C4523, C215 #### [facility] [address] [place] [address] GFR/1.73 sq M.predicted MDRD (S/P/Bld) [Vol rate/Area] 43 mL/min per 1.73 Low >60 [facility] Comment on above: Result Comment: The GFR estimate is not adjusted for race. If the patient's race is -Peruvian, the GFR estimate must be multiplied by a factor of 1.21. Performed By: #### C 120, C141, C116, C406, C4521, C118, C47, C4523, C215 #### [facility] [address] [place] [address] Glucose [Mass/Vol] 157 mg/dL High 74-100 [facility] Comment on above: Performed By: #### C 120, C141, C116, C406, C4521, C118, C47, C4523, C215 #### [facility] [address] [place] [address] Potassium [Moles/Vol] 4.3 mmol/L Normal 3.5-5.3 [facility] Comment on above: Performed By: #### C 120, C141, C116, C406, C4521, C118, C47, C4523, C215 #### [facility] [address] [address] Protein [Mass/Vol] 6.7 g/dL Normal 6.3-8.4 [facility] Comment on above: Performed By: #### C 120, C141, C116, C406, C4521, C118, C47, C4523, C215 #### [facility] [address] [address] Sodium [Moles/Vol] 136 mmol/L Normal 135-145 [facility] Comment on above: Performed By: #### C 120, C141, C116, C406, C4521, C118, C47, C4523, C215 #### [facility] [address] [place] [address] Urea nitrogen [Mass/Vol] 25 mg/dL High 6-22 [facility] Comment on above: Performed By: #### C 120, C141, C116, C406, C4521, C118, C47, C4523, C215 #### [facility] [address] [place] [address] Direct LDLon 01-18-2020 Cholesterol in LDL [Mass/Vol] 49 mg/dL Normal <130 [facility] Comment on above: Order Comment: Items in this order include: Cholesterol, Comprehensive Metabolic Panel, Direct LDL , HDL, Uric Acid , CBC with differential, HgbA1C, , , Slide Scan if Indicated, Manual Differential if Indicated Testing Performed By: [facility] [address] [place] [address]. [place] [address] Dr. Donnie Jean, Tissue Recovery Technician Result Comment: LDL goal dependent upon individual risk Performed By: #### C 120, C141, C116, C406, C4521, C118, C47, C4523, C215 #### [facility] [address] [place] [address] HDLon 01-18-2020 Cholesterol in HDL [Mass/Vol] 30 mg/dL Low >50 [facility] Comment on above: Performed By: #### C 120, C141, C116, C406, C4521, C118, C47, C4523, C215 #### [facility] [address] [place] [address] [id number] 01-18-2020 HbA1c (Bld) [Mass fraction] 6.7 % High <5.7 [facility] Comment on above: Order Comment: Items in this order include: Cholesterol, Comprehensive Metabolic Panel, Direct LDL , HDL, Uric Acid , CBC with differential, HgbA1C, , , Slide Scan if Indicated, Manual Differential if IndicatedTesting Performed By: [facility] [address] [place] [address]. [place] [address] Dr. Donnie Jean, Tissue Recovery Technician Result Comment: Refe rence Interval: Normal: below 5.7%. Prediabetes: 5.7% to 6.4%. Diabetes: 6.5% or above. Performed By: #### C 709 #### [facility] [address] [place] [address] Manual Differential if Indic atedon 01-18-2020 Anisocytosis Ql (Bld) SLIGHT Normal [facility] Comment on above: Order Comment: Recei mandy comment: User comments: Slide comments: Performed By: #### C 120, C141, C116, C406, C4521, C118, C47, C4523, C215 #### [facility] [address] [place] [address] Performed By: #### C 709 #### [facility] [address] [place] [address] Basophils 2 % Normal [facility] Comment on above: Order Comment: Recei mandy comment: User comments: Slide comments: Performed By: #### C 120, C141, C116, C406, C4521, C118, C47, C4523, C215 #### [facility] [address] [place] [address] [place] Cells SLIGHT Normal [facility] Comment on above: Order Comment: Recei mandy comment: User comments: Slide comments: Performed By: #### C 120, C141, C116, C406, C4521, C118, C47, C4523, C215 #### [facility] [address] [place] [address] Performed By: #### C 709 #### [facility] [address] [place] [address] Hypochromasia SLIGHT Normal SLIGHT [facility] Comment on above: Order Comment: Recei mandy comment: User comments: Slide comments: Performed By: #### C 120, C141, C116, C406, C4521, C118, C47, C4523, C215 #### [facility] [address] [place] [address] Performed By: #### C 709 #### [facility] [address] [place] [address] Lymphocytes 4 % Low 20-51 [facility] Comment on above: Order Comment: Recei mandy comment: User comments: Slide comments: Performed By: #### C 120, C141, C116, C406, C4521, C118, C47, C4523, C215 #### [facility] [address] [place] [address] Macrocytes Ql (Bld) SLIGHT Normal [facility] Comment on above: Order Comment: Recei mandy comment: User comments: Slide comments: Performed By: #### C 120, C141, C116, C406, C4521, C118, C47, C4523, C215 #### [facility] [address] [place] [address] Performed By: #### C 709 #### [facility] [address] [place] [address] Monocytes 3 % Normal 2-9 [facility] Comment on above: Order Comment: Recei mandy comment: User comments: Slide comments: Performed By: #### C 120, C141, C116, C406, C4521, C118, C47, C4523, C215 #### [facility] [address] [place] [address] Neutrophils 91 % High 42-75 [facility] Comment on above: Order Comment: Recei amndy comment: User comments: Slide comments: Performed By: #### C 120, C141, C116, C406, C4521, C118, C47, C4523, C215 #### [facility] [address] [place] [address] Ovalocytes SLIGHT Normal [facility] Comment on above: Order Comment: Recei mandy comment: User comments: Slide comments: Performed By: #### C 120, C141, C116, C406, C4521, C118, C47, C4523, C215 #### [facility] [address] [place] [address] Performed By: #### C 709 #### [facility] [address] [place] [address] Poikilocytosis SLIGHT Normal [facility] Comment on above: Order Comment: Recei mandy comment: User comments: Slide comments: Performed By: #### C 120, C141, C116, C406, C4521, C118, C47, C4523, C215 #### [facility] [address] [place] [address] Performed By: #### C 709 #### [facility] [address] [address] [facility] [address] [place] [address] Polychromasia SLIGHT Normal [facility] Comment on above: Order Comment: Jorge L gavlan comment: User comments: Slide comments: Performed By: #### C 120, C141, C116, C406, C4521, C118, C47, C4523, C215 #### [facility] [address] [place] [address] Performed By: #### C 709 #### [facility] [address] [place] [address] Uric Acidon 01-18-2020 Urate [Mass/Vol] 5.2 mg/dL Normal 2.5-6.2 [facility] Comment on above: Performed By: #### C 120, C141, C116, C406, C4521, C118, C47, C4523, C215 #### [facility] [address] [place] [address] Vital Signs Date Time Vital Sign Value Performing Clinician Faci litgauri 01-06-2024 14:30-0500 Body height 162.6 cm Leighton Horvath MD Work Phone: [facility] 01-06-2024 14:30-0500 Body mass index (BMI) [Ratio] 29.02 kg/m2 Leighton Horvath MD Work Phone: [facility] 01-06-2024 14:30-0500 Body temperature 97.7 [degF] Leighton Horvath MD Work Phone: [facility] 01-06-2024 14:30-0500 Body weight 76.7 kg Leighton Horvath MD Work Phone: [facility] Encounters Encounter Date Encounter Type Care Provider Facility Start: 01-06-2024 End: 01-07-2024 ambulatory KEELEY [facility] Start: 01-06-2024 End: 01-06-2024 Office outpatient visit 15 minutes Leighton Horvath MD Work Phone: [facility] Comment on above: Closed displaced fra cture of right acetabulum with routine healing, unspecified portion of acetabulum, subsequent encounter (Primary Dx) Start: 12-09-2023 End: 12-09-2023 ambulatory ANTONIO Stoddard APLING Not Available Start: 10-21-2023 End: 10-21-2023 ambulatory ANTONIO Stoddard APLING Not Available Start: 09-30-2023 End: 10-01-2023 ambulatory ANTONIO Stoddard APLING Not Available Start: 09-20-2023 End: 09-20-2023 ambulatory [facility] Start: 03-08-2023 End: 03-08-2023 ambulatory BECK RENEE Facility:[facility] Start: 03-01-2023 End: 03-01-2023 ambulatory BECK RENEE Facility:[facility] Start: 02-19-2023 ambulatory BECK RENEE Facility: [facility] Start: 02-06-2023 End: 02-06-[address] SON HADLEY Facility:[facility] Start: 01-18-2023 End: 01-19-2023 ambulatory BECK RENEE Facility:[facility] Start: 01-18-2023 End: 01-18-2023 ambulatory BECK RENEE Facility:[facility] Start: 12-25-2022 End: 12-25-2022 ambulatory TRACI [facility] Start: 06-26-2022 End: 06-27-2022 ambulatory YOU BARILLAS Facility:[facility] Start: 05-08-2022 End: 05-09-[address] BENNIE ALBRIGHT . Facility:[facility] Start: 04-03-2022 End: 04-18-2022 ambulatory LOU RANDHAWA Facility:[facility] Start: 04-01-2022 End: 04-16-2022 Evaluation and management of inpatient Genaro Gordillo Facility:[facility] Start: 03-22-2022 End: 04-01-2022 Evaluation and management of inpatient DR FARSHAD DONALDSON . Facility: Start: 11-02-2021 ambulatory SPERO JOSE G Facility :[facility] Start: 08-17-2021 [facility]ulatory [facility] Start: 07-21-2020 End: 07-21-2020 Patient encounter procedure ARA COFFMAN [facility] Procedures Date Procedure Procedure Detail Performing Clinician Start: 01-06-2024 Follow-up visit Follow-up LEIGHTON HORVATH Start: 04-03-2022 Antibody screen LOU MUNIZ Comment on above: Performed By: #### 8 5499 #### [address] Plan of Treatment Date Care Activity Detail Author Start: 01-06-2025 Adult BMI Screening Adult BMI Screening [facility] Start: 01-06-2025 Tobacco Screening Tobacco Screening [facility] Start: 07-30-2024 End: 07-30-2024 Patient encounter procedure 07/30/2024 1:00 PM EDT Office Visit Amairani Lowry [facility] [address] [place] [phone] Laurel Mueller MD [address] [place] [address] [address] [place] [address] Amairani Lowry [facility] Start: 07-19-2023 COVID-19 Vaccine ( season) COVID-19 Vaccine ( season) [facility] Start: 07-19-2023 Influenza vaccination Influenza Vaccine [facility] Start: 07-09-2017 Administration of varicella zoster vaccine Zoster (Shingles) [facility] 2[facility] Start: 2004 Fall [facility]ening [facility] Start: 1958 DTaP,Tdap and Td Vaccines (1 - Tdap) DTaP,Tdap and Td Vaccines (1 - Tdap) [facility]: 1957 Adult BMI Follow Up Plan Adult BMI Follow Up Plan [facility] [email or web address] [facility] Start: 08-23-1951 Depression Screening Depression Screening [facility] Start: 1939 Medicare Annual Wellness Visit Medicare Annual Wellness Visit [facility] Immunizations Immunization Date Immunization Notes Care Provider Fa turner 03-08-2022 COVID-19, mRNA, LNP- S, PF, 100mcg/0.5mL Dose Leighton Horvath MD Work Phone: [facility] 08-10-2021 pneumococcal conjuga te vaccine, 13 faraz Horvath MD Work Phone: [facility] 08-22-2020 Influenza, High-dose , Quadrivalent Leighton Horvath MD Work Phone: [facility] 08-22-2020 pneumococcal conjuga te vaccine, 13 valjasen Horvath MD Work Phone: [facility] 08-22-2020 influenza virus vacc ine, unspecified formulation Leighton Horvath MD Work Phone: [facility] 05-10-2020 pneumococcal polysaccharide vaccine, 23 valent Leighton Horvath MD Work Phone: [facility] 09-21-2019 influenza, high dose seasonal, preservative-free Leighton Horvath MD Work Phone: [facility] 10-21-2018 influenza, high dose seasonal, preservative-free Leighton Horvath MD Work Phone: [facility] 05-14-2017 zoster vaccine, live Leighton Horvath MD Work Phone: [facility] 05-14-2017 zoster vaccine, unspecified formulation Leighton Horvath MD Work Phone: [facility] 09-10-2016 influenza, high dose seasonal, preservative-free Leighton Horvath MD Work Phone: [facility] 09-10-2016 pneumococcal conjuga te vaccine, 13 valent Leighton Horvath MD Work Phone: [facility] 09-01-2015 influenza, high dose seasonal, preservative-free Leighton Horvath MD Work Phone: [facility] 08-26-2014 influenza, seasonal, injectable Leighton Horvath MD Work Phone: [facility] 08-26-2014 pneumococcal polysaccharide vaccine, 23 valent Leighton Horvath MD Work Phone: [facility] 08-26-2013 influenza, seasonal, injectable Leighton Horvath MD Work Phone: [facility] Payers Date Payer Category Payer Medicare [employer] MEDICARE UHC MEDICARE ADVANTAGE PPO [id number] 2022-Present [phone] [address] [address] [place] [address] [id number] 2021 Medicaid MEDICAID [facility] EDICAID [id number] 2021-Present [phone] [address] [place] [address] [id number] 2019 Medicare [id number] Medicaid [id number] 1959 Medicare [id number] 1959 Private Health Insurance [id number] 1940 Unknown [id number] 2..840.1.737566.3.579. 2.900 1939 Unknown [id number] 2..840.1.237427.3.579. 2.594 1939 Unknown [id number] 2.16.840.1.198119.3.579. 2.594 1939 Unknown [id number] 2.16.840.1.043750.3.579. 2.594 1939 Unknown [id number] 2.16.840.1.099636.3.579. 2.647 1939 Unknown [id number] 2.16.840.1.490553.3.579. 2.647 1939 Unknown [id number] 2.16.840.1.970404.3.579. 2.647 1939 Unknown [id number] 2.16.840.1.839224.3.579. 2.593 1939 Unknown [id number] 2.16.840.1.728131.3.579. 2.593 1939 Unknown [id number] 2.16.840.1.211143.3.579. 2.593 1939 Unknown [id number] 2.16.840.1.169673.3.579. 2.593 1939 Unknown [id number] 2.16.840.1.227863.3.579. 2.593 1939 Unknown [id number] 2.16.840.1.942904.3.579. 2.593 1939 Unknown [id number] 2.16.840.1.974751.3.579. 2.593 1939 Unknown [id number] 2.16.840.1.592525.3.579. 2.593 1939 Unknown [id number] 2.16.840.1.129751.3.579. 2.1259 1939 Unknown [id number] 2.16.840.1.243784.3.579. 2.1259 1939 Unknown [id number] 2.16.840.1.703533.3.579. 2.1259 1939 Unknown [id number] 2.16.840.1.220726.3.579. 2.1259 1939 Unknown [id number] 2.16.840.1.157153.3.579. 2.1286 1939 Unknown [id number] 2.16.840.1.661553.3.579. 2.1286 Social History Date Type Detail Facility Start: 02-07-2023 Tobacco smoking stat us NHIS Ex-smoker [facility] History of tobacco use Current smoker [facility] History of tobacco use Cigarette Smoker [facility] Start: 02-07-2023 Tobacco use and exposure Smokeless tobacco non-user [facility] Start: 01-07-2024 Alcohol intake Ex-drinker (finding) [facility] Start: 01-06-2024 End: 01-07-2024 History of Social function [facility] Start: 01-06-2024 End: 01-07-2024 Tobacco use panel [facility] Are you worried or concerned that in the next two months you may not have stable housing that you own, rent or stay in as a part of a household? No [facility] Start: 1940 Sex Assigned At Female P [facility] Medical Equipment Procedure Code Equipment Code Equipment Origin al Text Equipment Identifier Dates Plate Bn [id number] m 1/3 Tblr 6 Hl Colr Ss .5mm 12mm Ns - [id number] Start: 02-08-2023 Screw Bn 26mm 4m m 6mm Sm Hex Sckt Canc Ss 2.5mm Ft Ns Sm - [id number] Start: 02-08-2023 Goals Date Patient Goal [...] Leighton Horvath MD documented in this encounter [facility] Progress note 09-20-2023 Note Date & Type Note Facility 09-20-2023 Note [facility] Subjective María Elena Tafoya is a [...] in March 2022 was admitted to the [facility] and then [facility] with acute gallstone pancreatitis, acute blood [...] function (more content not included)... [facility] Progress note 12-25-2022 Note Date & Type Note Facility 12-25-2022 Note [facility] SUBJECTIVE Chief Complaint Patient presents with Atrial Fibrillation María Elena Tafoya is a 82 y.o. female here for follow-up. HPI She is an 82-year-old woman who was admitted in March 2022 to [facility] and then [facility] with acute gallstone pancreatitis, acute blood [...] 11 (more content not included)... [facility] Progress note 12-25-2022 Note Date & Type Note Facility 12-25-2022 Note Patient here for fol low up [place] on event monitor per Dr. Leos. Patient denies chest pain and SOB. Feels good. Review of Systems All other systems reviewed and are negative. [facility] Discharge summary note 04-16-2022 Note Date & Type Note Facility 04-16-2022 Note MR#: [id number] I [facility] Pt. Name: María Elena Tafoya Admitted: [...] Gordillo MD Date Trans: 04/16/2022 09:55 A/erik [id number] cc: Bennie Albright M.D. [address] [address] [facility] Discharge summary note 04-13-2022 Note Date & Type Note Facility 04-13-2022 Note MR#: [id number] I [facility] Pt. Name: María Elena Tafoya Admitted: [...] history as above, who was transferred from [facility] secondary to gallstone induced acute pancreatitis. [...] sign and the patient was admitted to [facility] for further treatment. She was aggressively [...] to repeat a voiding trial at the group home in 1-3 days and follow up with provider at that facility, however, her discharge is currently pending precert, so if she does remain at this facility, we may also just discontinue (more content not included)... [facility] Evaluation note Note Date & Type Note Facility Evaluation note Diagnosis Closed displaced fracture of right acetabulum with routine healing, unspecified portion of acetabulum, subsequent encounter- Primary documented in this encounter [email or web address] [facility] Instructions Note Date & Type Note [...] FoundDocuments on File Type Date Recorded Patient Assistant Nurse Manager Expl anation Advance Directive 01/18/2022 1:07 PM DNR Advance Directive 01/18/2022 11:00 AM DUR[employer] POWER OF COMPENSATION DIRECTOR Latest Code Status on File Code Status Date Activated Date Inactivated Comments Full Code 02/07/2023 12:03 AM 02/12/2023 3:45 PM Healthcare Agents on File Name Relationship Healthcare Agent Relationship Communication Andreea Liz Health Care Agent [email or web address] Additional Source Comments INFORMATION SOURCE (unrecogn ized section and content) DATE CREATED AUTHOR 02/04/2020 [facility] DATE CREATED AUTHOR AUTHOR'S ORGANIZ ATION 08/23/2020 [facility] DATE CREATED AUTHOR AUTHOR'S ORGANIZ ATION 09/28/2020 [facility] DATE CREATED AUTHOR AUTHOR'S ORGANIZ ATION 02/12/2021 [facility] DATE CREATED AUTHOR AUTHOR'S ORGANIZ ATION 02/07/2022 [facility] DATE CREATED AUTHOR AUTHOR'S ORGANIZ ATION 07/13/2022 [facility] DATE CREATED AUTHOR AUTHOR'S ORGANIZ ATION 03/15/2023 [facility] DATE CREATED AUTHOR AUTHOR'S ORGANIZ ATION 09/21/2023 [facility] DATE CREATED AUTHOR AUTHOR'S ORGANIZ ATION 12/09/2023 [facility] DATE CREATED AUTHOR AUTHOR'S ORGANIZ ATION 01/08/2024 [facility] Reason for Visit (unrecogniz ed section [...] RECORDS. [facility] [employer] [facility]. provides no warranty or guarantee of the accuracy or completeness of information in this document.
[2024-04-10 07:42] LABS: Bilirubin Urine NEGATIVE (NEGATIVE); Blood Urine NEGATIVE (NEGATIVE); Clarity Urine CLEAR (CLEAR); Color Urine YELLOW (YELLOW); Glucose Urine UA 500 mg/dL (NEGATIVE); Ketones Urine NEGATIVE (NEGATIVE); Leukocyte Esterase Urine NEGATIVE (NEGATIVE); Nitrite Urine NEGATIVE (NEGATIVE); Protein Urine 100 mg/dL (NEG/TRACE); Specific Gravity Urine 1.025 (1.005-1.025); Urobilinogen Urine 0.2 EU/dL (0.2-1.0)
[2024-04-10 07:52] LABS: Urine Microscopic Indicated YES
[2024-04-10 08:54] LABS: Anion Gap 13.8; BUN Creatinine Ratio 17.9; Carbon Dioxide 23.7 mmol/L (21.0-32.0); Chloride 103 mmol/L (98-107); Estimated GFR (African America 35 (>=60); Estimated GFR (Non-African Ame 29 (>=60); Glucose 163 mg/dL (74-106); Potassium 4.5 mmol/L (3.5-5.1); Sodium 136 mmol/L (136-145)
[2024-04-10 09:08] LABS: Bacteria Urine SMALL #/HPF (NONE SEEN); Crystals Seen? Seen #/HPF (None Seen); Mucus Urine NONE SEEN (NONE SEEN); RBC Urine NONE SEEN #/HPF (0-2); Squamous Epithelial Cell Urine FEW #/LPF (NONE/RARE)
[2024-04-10 09:09] LABS: Amorphous Sediment Urine FEW; Urine Culture Indicated ALREADY ORDERED
== END 2024-04-10 01:04 | disposition home or self-care (01) ==
LOC: LAB 01:03
PROVIDERS: PCP Family Medicine; Visit Provider Family Medicine
DX: Z51.81 Encounter for therapeutic drug level monitoring (principal); N39.0 Urinary tract infection, site not specified; R42 Dizziness and giddiness; R33.9 Retention of urine, unspecified
CPT/HCPCS: 36415; 80048; 81001; 87086; 87150; 87186

== ENCOUNTER 2024-06-10 08:23 | Outpatient (REF) | payer MEDICARE, MEDICAID, SELFPAY ==
[2024-06-10 09:05] LABS: Hematocrit 46.4 % (36.0-48.0); Hemoglobin 14.5 g/dL (12.0-16.0); Mean Corpuscular HGB Conc 31.3 g/dL (29.9-35.2); Mean Corpuscular Hemoglobin 29.8 pg (26.7-34.0); Mean Corpuscular Volume 95.3 fL (81.0-99.0); Mean Platelet Volume 10.1 fL (9.5-13.5); Platelet Count 353 10^3/uL (150-450); Red Blood Count 4.87 10^6/uL (4.20-5.40); Red Cell Distribution Width 19.5 % (11.0-15.0); White Blood Count 25.8 10^3/uL (4.0-11.0)
[2024-06-10 09:37] LABS: Estimated Average Glucose 166 mg/dL; Glycohemoglobin A1C 7.4 % (4.5-6.2)
[2024-06-10 09:38] LABS: Alanine Aminotransferase 71 U/L (14-59); Albumin Globulin Ratio 0.8; Albumin Level 3.1 g/dL (3.4-5.0); Alkaline Phosphatase 89 U/L (46-116); Anion Gap 16.5; Aspartate Amino Transferase 49 U/L (15-37); BUN Creatinine Ratio 19.3; Bilirubin Total 0.5 mg/dL (0.2-1.0); Calcium 8.8 mg/dL (8.5-10.1); Carbon Dioxide 20.8 mmol/L (21.0-32.0); Chloride 106 mmol/L (98-107); Estimated GFR (African America 40 (>=60); Estimated GFR (Non-African Ame 33 (>=60); Globulin 4.1 g/dL; Glucose 125 mg/dL (74-106); Potassium 4.3 mmol/L (3.5-5.1); Sodium 139 mmol/L (136-145); Thyroid Stimulating Hormone 4.677 uIU/mL (0.358-3.740); Total Protein 7.2 g/dL (6.4-8.2)
[2024-06-10 13:18] LABS: Anisocytosis 1+; Band Neutrophils Absolute 0.8 10^3/uL (0.0-0.3); Lymphocytes Absolute Manual 0.51 10^3/uL (1.20-3.80); Monocytes Absolute Manual 0.51 10^3/uL (0.30-0.80); Segmented Neut Absolute Manual 23.99 10^3/uL (1.4-6.5)
== END 2024-06-10 08:24 | disposition home or self-care (01) ==
LOC: LAB 08:23
PROVIDERS: PCP Family Medicine
DX: I12.9 Hypertensive chronic kidney disease with stage 1 through stage 4 chronic kidney disease, or unspecified chronic kidney disease (principal); N18.9 Chronic kidney disease, unspecified
CPT/HCPCS: 36415; 80053; 82306; 83036; 84443; 85007; 85027

== ENCOUNTER 2024-07-20 18:31 | Emergency (ER) | payer MEDICARE, MEDICAID, SELFPAY ==
[2024-07-20] VITALS (89 sets, daily range): BP systolic 42–114; BP diastolic 27–88; PULSE 82–126; TEMP 37.6; O2SAT 72–100
--- NOTE | 2024-07-20 | XR_ITS ---
The [address] [address] Patient Name: MASSIEL HUNT MRN: [id number] date: 1940 Sex: F Assigned Patient Location: ER Current Patient Location: ER Accession/Order Number: [id number] Exam Date: 07/20/2024 19:01 Report Date: 07/20/2024 20:53 At the request of: FRIDA ARIZMENDI Procedure: XR chest 1V EXAM: XR chest 1V , 07/20/2024 HISTORY: post intubation COMPARISON: Previous x-ray from 07/20/2024 at 6:43 PM. TECHNIQUE: Portable x-ray of the chest AP supine view. FINDINGS: The endotracheal tube has been withdrawn, with the tip 3 cm above the melinda. Diffuse haze overlying the left lung, with improved aeration compared to previous imaging. Cardiac silhouette within normal limits. Mild atherosclerotic calcification of the aortic arch. The right lung is clear. No acute osseous findings. XR/XR chest 1V IMPRESSION: Endotracheal tube seen with the tip 3 cm above the melinda. Improvement in the left lung aeration. Electronically authenticated by: KERRI SCHULTZ Date: 07/20/2024 20:53
--- NOTE | 2024-07-20 18:33 | XR_ITS ---
The [address] [address] Patient Name: MASSIEL HUNT MRN: [id number] date: 1940 Sex: F Assigned Patient Location: ED.MAIN Current Patient Location: ER Accession/Order Number: [id number] Exam Date: 07/20/2024 18:50 Report Date: 07/20/2024 20:40 At the request of: GLYNN WATSON Procedure: XR chest 1V EXAM: XR chest 1V at 1843 hours HISTORY: Post intubation, respiratory distress COMPARISON: 02/29/2024 TECHNIQUE: AP upright portable chest x-ray FINDINGS: There is complete opacification of the left hemithorax with loss of lung volume and shift of the mediastinum to the left. This appears to be related to the placement of the endotracheal tube and the tip of the endotracheal tube is in the right main bronchus. The right lung is clear. The heart cannot be evaluated. The osseous structures are grossly intact. XR/XR chest 1V IMPRESSION: There is complete opacification of the left hemithorax with loss of lung volume and a shift of the mediastinum slightly to the left. This appears to be related to the position of the endotracheal tube. The tip of the endotracheal tube is in the right main bronchus. The endotracheal tube is pulled back 6 or 7 cm. Electronically authenticated by: MARIETTA MARTEL Date: 07/20/2024 20:40
--- NOTE | 2024-07-20 18:33 | ECG_ITS ---
The [facility] Test Date: 2024-07-20 Pat Name: MASSIEL HUNT Department: Room: - Gender: Female [employer]: : 1940 Requested By: ENSTOR SANDOVAL Order Number: [id number] Reading MD: ELIZABETH URIBE Measurements Intervals Burton Rate: 123 P: 215 SC: 200 QRS: -57 QRSD: 138 T: 56 QT: 418 QTc: 491 Interpretive Statements Sinus tachycardia w/ first degree AV block 2550 Left bundle branch block 3631 Inferior myocardial infarction, possibly acute 6230 Left atrial enlargement 9150 abnormal ECG Electronically Signed On 07-21-2024 6:47:49 EDT by ELIZABETH URIBE
[2024-07-20] MEDS: MIDAZOLAM HCL 2 MG/2 ML VIAL 4 MG IV (18:39)
[2024-07-20] MEDS: ETOMIDATE 20 MG/10 ML VIAL IVP (18:41)
[2024-07-20] MEDS: FENTANYL CITRATE/PF 100 MCG/2 ML VIAL 50 MCG IV (18:41)
[2024-07-20 18:53] LABS: Hemoglobin 17.4 g/dL (12.0-16.0); Mean Corpuscular HGB Conc 32.2 g/dL (29.9-35.2); Mean Corpuscular Hemoglobin 30.3 pg (26.7-34.0); Mean Corpuscular Volume 94.1 fL (81.0-99.0); Mean Platelet Volume 10.5 fL (9.5-13.5); Platelet Count 269 10^3/uL (150-450); Red Blood Count 5.74 10^6/uL (4.20-5.40); Red Cell Distribution Width 15.1 % (11.0-15.0)
--- OUTSIDE RECORDS SUMMARY | 2024-07-20 18:53 | XMS_ITS | CCD ---
Author Organization [facility] Care Team Providers Care Cloud Solutions Architect Name Role Phone KING ARA COFFMAN Attending Unavailable PETRA ARAIZA Attending Unavailable SELF, SELF Referring Unavailable [facility], OTHER Referring Unavailable PETRA ARAIZA Attending Unavailable [...] AMOL, TRACI C Admitting Unavailable TRACI CARMICHAEL Attending Unavailable NATALEE ., DR VAERY Admitting Unavailable HOY ., DR AVERY Attending Unavailable NATALEE ., DR AVERY Consulting Unavailable QUINCY, DR ROGE Shoemaker Consulting Unavailable JOMAR, DR SON Azevedo Attending UnavailBECK [facility] Unavailable JOMAR, DR SON Azevedo Consulting Unavaildario HADLEY, DR SON Azevedo Admitting Unavailabl e GRECHNY ., TRUPTI MAKI Consulting Unavaildario EDDY, FERMÍN Consulting Unavailable ROGE GORDON Consulting Unavailable MARIETTA MARTEL Consulting Unavailable MIRYAMUCLARA Consulting Unavailable MENDOZA ., DR FARSHAD Rose Consulting Unavaila ble FAWWAD, SAN H Admitting Unavailable FAWWAD, SAN H Attending Unavailable NATALEE ., DR AVERY Consulting Unavailable CHERYL ., DR JOSHUA Rose Consulting Unavailable QUINCY, DR ROGE Shoemaker Consulting Unavailable FISHEBEBENEZER, DR JORGE Lopez Consulting Unavailable NADERER, DR BLAIRE Love Consulting Unavailable HAY ., DR CLAROS Consulting Unavailable SAMSA ., IJEOMA Consulting Unavailable FARONNY, H Consulting Unavailable BROOKE COSTELLO Consulting Unavailable YOUNG, ROGE Consulting Unavailable ANTOINE, KERRI Consulting Unavailable CATRACHO LEWIS Consulting Unavailable BECK RENEE Primary Care Unavailable HOY ., DR AVERY Admitting Unavailable HOY ., DR AVERY Attending Unavailable HOY ., DR AVERY Consulting Unavailable APLANTONIO TIJERINA Attending Unavailable APLINGANTONIO Attending Unavailable APLINGANTONIO Attending Unavailable APLINGANTONIO Referring Unavailable Unavailable Primary Care Provider UnavailKEELEY Lopez Referring Unavailable LEIGHTON HORVATH Attending Unavailabl MARY LOU Cohen Attending Unavailable SARATH DON Attending Unavailable Allergies Allergy Classification Reported Allergen(s) Allergy Type Date of Onset Reaction(s) Facility (2 sources) Ciprofloxacin Drug Allergy 03-23-2022 [facility] Repository (2 sources) Dexamethasone; Translations: [DEXAMETHASONE] Drug Allergy 06-27-2023 [facility] (2 sources) Erythromycin; Translations: [ERYTHROMYCIN BASE] Drug Allergy 06-27-2023 [facility] (2 sources) Neomycin; Translations: [NEOMYCIN SULFATE] Drug Allergy 06-27-2023 [facility] (2 sources) Polymyxin B; Translations: [POLYMYXIN B] Drug Allergy 06-27-2023 [facility] (2 sources) Tobramycin; Translations: [TOBRAMYCIN] Drug Allergy 06-27-2023 [facility] Medications Current Medications Medication Drug Class(es) [...] 30 days. 0 Active polyethylene glycol 3350 34643 mg powder for oral solution (1 source) Osmotic Laxative polyethylene gl ycol (GLYCOLAX) 17 gram packet Take 17 g by mouth daily as needed (constipation). 0 Active sennosides, jail 8.6 mg oral tablet (1 source) senna [...] Translations: [Paroxysmal atrial fibrillation] Onset: 07-28-2022 Chronic Cardiac dysrhythmias (6 sources) Tachycardia, unspecified; Translations: [Bradycardia] Onset: 07-28-2022 02-07-2023 Episodic Chronic kidney disease (2 sources) Chronic kidney [...] senior care (current) drug therapy; Translations: [OTH PENITENTIARY CURRENT DRUG THERAPY] Onset: 02-08-2023 Episodic Other aftercare (1 source) intermediate (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 of aspirin; Translations: [PENITENTIARY CURRENT USE OF ASPIRIN] Onset: 03-06-2023 Episodic Other aftercare (1 source) intermediate (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 of non-steroidal anti-inflammatories (NSAID); Translations: [PENITENTIARY USE NSAID] Onset: 02-08-2023 Episodic Other fractures (1 source) Unspecified fracture [...] with routine healing] Onset: 01-07-2024 Episodic Other lower respiratory disease (1 source) Other forms of dyspnea; Translations: [OTHER FORMS OF DYSPNEA] Onset: 01-21-2023 Episodic Other non-traumatic joint disorders (3 sources) Pain in right hip; Translations: [PAIN IN RIGHT HIP] Onset: 02-06-2023 Episodic Other nutritional; endocrine; and metabolic disorders (1 source) Other disorders of bilirubin metabolism; 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 Other nutritional; endocrine; and metabolic disorders (1 source) Obesity, unspecified; Translations: [OBESITY UNSPECIFIED] Onset: 04-05-2022 Chronic Peripheral and visceral atherosclerosis (3 sources) Atherosclerosis of aorta; Translations: [Atherosclerosis of aorta] [...] neoplasm of breast] Onset: 04-05-2022 07-26-2022 Episodic Fracture of neck of femur (hip) [...] Onset: 04-05-2022 Episodic Other aftercare (1 source) intermediate (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 of insulin; Translations: [GENERAL [employer] DEPARTMENT CURRENT USE OF INSULIN] Onset: 04-05-2022 Episodic Other aftercare (1 source) intermediate (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 of anticoagulants; Translations: [PENITENTIARY CURRNT USE ANTICOAGULANTS] Onset: 04-05-2022 Episodic Other connective tissue disease (2 sources) Repeated falls; Translations: [Repeated falls] Onset: 09-20-2023 Episodic Other diseases of kidney and ureters (2 sources) Disorder of kidney and ureter, unspecified; Translations: [Disorder of kidney and ureter, unspecified] Onset: 09-20-2023 Episodic Other gastrointestinal disorders (4 sources) Dysphagia, oropharyngeal phase; Translations: [DYSPHAGIA OROPHARYNGEAL PHASE] Onset: 05-08-2022 Episodic Other liver diseases (1 source) Abnormal levels of other serum enzymes; Translations: [ABNORMAL LEVELS OTHER SERUM ENZYMES] Onset: 04-05-2022 Episodic Other lower respiratory disease (1 source) [...] Value Interpretation Reference Range Facility Office Visiton 05-07-2024 Follow-up visit [id number] Jennifer Tafoya A 1940 F Date Provider Department Center 05/07/2024 SARATH COBURN [facility] Family History Problem Relation Age of Onset Diabetes Sister Diabetes Brother Diabetes Maternal Grandfather Family Status - Relation Status Age at Sister Brother Maternal Grandfather Level of Service:58819 [place] OFFICE/OUTPATIENT ESTABLISHED LOW MDM 20 MIN Normal [facility] XR PELVIS MIN 3 VWSon 2023 XR PELVIS MIN 3 VWS XR PELVIS MIN 3 VWS Comparison May 30, 2023 XR PELVIS MIN 3 VWS Closed displaced fracture of right acetabulum with routine healing, unspecified portion of acetabulum, subsequent encounter Impression: 1. Stable appearance of fracture and transfixing hardware. Stable positioning and alignment. Finalized by Ruddy Sanders MD on 01/07/2024 3:35 AM Normal [facility] Office Visiton 09-20-2023 Follow-up visit [id number] Jennifer Tafoya A 1940 Date Provider Department Center 09/20/2023 MARY LOU FELIZ ELZA [facility] Family History Problem Relation Age of Onset Diabetes Sister Diabetes Brother Diabetes Maternal Grandfather Family Status - Relation Status Age at Sister Brother Maternal Grandfather Level of Service:39761 [place] OFFICE/OUTPATIENT ESTABLISHED MOD MDM 30-39 MIN Reason for Visit and Comments: Follow-up [148271] Normal [facility] CBC W MANUAL DIFFon 03-08-20 ANISOCYTOSIS 1+ Normal [facility] Comment on above: Performed By: #### C OMID ####[facility] [address] [place] [address]Dr. Bhavani Barragan ATYPICAL LYMPH # Normal [facility] Comment on above: Performed By: #### C OMID ####[facility] [address] [place] [address]Dr. Bhavani Barragan ATYPICAL LYMPH % Normal [facility] Comment on above: Performed By: #### C OMID ####[facility] [address] [place] [address]Dr. Bhavani Barragan BAND # 1.3 103/ul Critically high 0.0-0.3 [facility] Comment on above: Performed By: #### C BCJERSON ####[facility] [address] [place] [address]Dr. Bhavani Barragan BAND % 4 % Normal 0-5 [facility] Comment on above: Performed By: #### C BCJERSON ####[facility] [address] [place] [id number]. Yiroxi Barragan BASOM # 0.00 103/ul Normal 0.00-0.10 [facility] Comment on above: Performed By: #### C BCJERSON ####[facility] [address]zce[address] [place] [address]Dr. Bhavani Barragan BASOM % 0.0 % Critically low 0.2-2.0 The [facility] Comment on above: Performed By: #### C OMID ####[facility] Z[address] [place], [place] [address]Dr. Yiroxi Barragan BLAST # Normal [facility] Comment on above: Performed By: #### C BCJERSON ####[facility] [address]ok[address]ry[address] [place] [address]Dr. Yiroxi Barragan BLAST % Normal [facility] Comment on above: Performed By: #### C OMID ####[facility] [address] [place], [place] [address]Dr. Bhavani Barragan CORRECTED WBC Normal 4.0-11.0 The [facility] Comment on above: Performed By: #### C BCJERSON ####[facility] [address]ecb[address] [place] [address]Dr. Yiroxi Barragan EOS # 0.00 103/ul Normal 0.00-0.70 [facility] Comment on above: Performed By: #### C OMID ####[facility] [address] [place], [place] [address]Dr. Bhavani Barragan EOS% 0.0 % Critically low 0.9-7.0 The [facility] Comment on above: Performed By: #### C OMID ####[facility] V[address]kw[address] [place], [place] [address]Dr. Yilan Barragan HCT 38.1 % Normal 36.0-48.0 [facility] Comment on above: Performed By: #### C OMID ####[facility] [address] [place] [id number]. Bhavani Barragan HGB 11.6 g/dl Critically low 12.0-16.0 [facility] Comment on above: Performed By: #### C OMID ####[facility] [address]xrca16[address] [place] [id number]. Bhavani Barragan LYMPHM # 1.58 103/ul Normal 1.20-3.80 [facility] Comment on above: Performed By: #### C OMID ####[facility] [address] [place] [id number]. Bhavani Barragan LYMPHM% 5.0 % Critically low 20.5-60.0 [facility] Comment on above: Performed By: #### C OMID ####[facility] [address]fb[address] [place] [id number]. Bhavani Barragan MCH 29.7 pg Normal 26.7-34.0 [facility] Comment on above: Performed By: #### Jany ANNE ####[facility] [address] [place] [id number]. Bhavani Barragan MCHC 30.4 g/dl Normal 29.9-35.2 [facility] Comment on above: Performed By: #### Jany ANNE ####[facility] [address] [place] [id number]. Bhavani Barragan MCV 97.7 fL Normal 81.0-99.0 [facility] Comment on above: Performed By: #### C OMID ####[facility] [address] [place] [id number]. Bhavani Barragan METAMYELOCYTE # Normal [facility] Comment on above: Performed By: #### C OMID ####[facility] [address]mun[address] [place] [id number]. Bhavani Barragan METAMYELOCYTE % Normal [facility] Comment on above: Performed By: #### C OMID ####[facility] [address] [place], [place] [address]Gb. Bhavani Barragan MONOM# 0.95 103/ul Critically high 0.30-0.80 [facility] Comment on above: Performed By: #### C OMID ####[facility] I[address] [place], [place] [address]Qp. Bhavani Barragan MONOM% 3.0 % Normal 1.7-12.0 [facility] Comment on above: Performed By: #### C OMID ####[facility] U[address]unpxelx[address] [place] [id number]. Bhavani Barragan MPV 10.6 fL Normal 9.5-13.5 [facility] Comment on above: Performed By: #### C OMID ####[facility] X[address] [place] [id number]. Bhavani Barragan MYELOCYTE # Normal [facility] Comment on above: Performed By: #### C OMID ####[facility] [address]rtepnh16[address] [place] [id number]. Bhavani Barragan MYELOCYTE % Normal [facility] Comment on above: Performed By: #### C OMID ####[facility] [address]dzjqbp[address]708 [place] [id number]. Bhavani Barragan NRBC Normal [facility] Comment on above: Performed By: #### C OMID ####[facility] [address] [place] [id number]. Bhavani Barragan PLT 280 103/ul Normal 150-450 [facility] Comment on above: Performed By: #### C OMID ####[facility] [address]feu24[address] [place] [id number]. Bhavani Barragan RBC 3.90 106/ul Critically low 4.20-5.40 [facility] Comment on above: Performed By: #### C OMID ####[facility] X[address]ueivqp77[address] [place] [id number]. Bhavani Barragan RDW 18.2 % Critically high 11.0-15.0 [facility] Comment on above: Performed By: #### C OMID ####[facility] [address]wc[address]v6[address] [place], [place] [address]Lo. Bhavani Barragan SEG # 27.90 103/ul Critically high 1.40-6.50 [facility] Comment on above: Performed By: #### C OMID ####[facility] [address]25[address] [place], [place] [address]Le. Bhavani Barragan SEG % 88.0 % Critically high 43.0-75.0 [facility] Comment on above: Performed By: #### C ALICIAMAN ####[facility] [address]ijjgkc1728 [place], [place] [address]Yr. Bhavani Barragan WBC 31.7 103/ul Critically high 4.0-11.0 [facility] Comment on above: Performed By: #### C OMID ####[facility] Fj[address]zxx20[address] [place], [place] [address]Cx. Bhavani Barragan PERIPHERAL SMEARon 3 Pathologist Cyto stain Nom (Cvx/Vag) [ID] DR. AFTAB SCHAFER Normal [facility] Comment on above: Result Comment: Revi ew of peripheral smear reveals RBCs with anisocytosis. The platelets areadequate in number with normal morphology. There is leukocytosis withneutrophilia. The WBC morphology is unremarkable. No atypical lymphocytes orimmature blasts are seen. The findings are suggestive of a reactive process.Clinical correlation is recommended. Performed By: #### P ERSMR ####[facility] [address] [place] [phone]. Bhavani Barragan CBC W MANUAL DIFFon 03-01-20 23 ANISOCYTOSIS 1+ Normal [facility] Comment on above: Performed By: #### C OMID ####[facility] Ae[address]hc[address]rr1780 [place], [place] [address]Hf. Bhavani Barragan ATYPICAL LYMPH # Normal [facility] Comment on above: Performed By: #### C OMID ####[facility] Dyrop[address]wwsp75[address] [place], [place] [address]Em. Bhavani Barragan ATYPICAL LYMPH % Normal [facility] Comment on above: Performed By: #### C OMID ####[facility] Bsrs[address]os[address] [place] [address]Dr. Bhavani Barragan BAND # 1.8 103/ul Critically high 0.0-0.3 [facility] Comment on above: Performed By: #### C BCJERSON ####[facility] [address]kr[address]cj[address] [place] [address]Dr. Bhavani Barragan BAND % 5 % Normal 0-5 [facility] Comment on above: Performed By: #### C BCJERSON ####[facility] Dqjtgiaqth[address] [place] [address]Dr. Yiroxi Barragan BASOM # 0.00 103/ul Normal 0.00-0.10 [facility] Comment on above: Performed By: #### C BCJERSON ####[facility] [address] [place], [place] [address]Dr. Bhavani Barragan BASOM % 0.0 % Critically low 0.2-2.0 The [facility] Comment on above: Performed By: #### C BCJERSON ####[facility] [address] [place], [place] [address]Dr. Bhavani Barragan BLAST # Normal [facility] Comment on above: Performed By: #### C OMID ####[facility] [address] [place], [place] [address]Dr. Yilan Barragan BLAST % Normal [facility] Comment on above: Performed By: #### C OMID ####[facility] [address]tcur[address]ce[address] [place], [place] [address]Dr. Bhavani Barragan CORRECTED WBC Normal 4.0-11.0 The [facility] Comment on above: Performed By: #### C BCJERSON ####[facility] W[address]vbwxmi[address] [place] [address]Dr. Bhavani Barragan EOS # 0.00 103/ul Normal 0.00-0.70 [facility] Comment on above: Performed By: #### C BCJERSON ####[facility] [address] [place], [place] [address]Dr. Yiroxi Barragan EOS% 0.0 % Critically low 0.9-7.0 [facility] Comment on above: Performed By: #### C OMID ####[facility] [address]wm8737 [place], [place] [address]Jb. Bhavani Barragan HCT 32.6 % Critically low 36.0-48.0 [facility] Comment on above: Performed By: #### C OMID ####[facility] Ofpuwxkgpf3294 [place], [place] [address]Xw. Bhavani Barragan HGB 10.0 g/dl Critically low 12.0-16.0 The [facility] Comment on above: Performed By: #### C OMID ####[facility] Uk[address]afolco6587 [place], [place] [address]Ku. Bhavani Barragan LYMPHM # 1.75 103/ul Normal 1.20-3.80 [facility] Comment on above: Performed By: #### C OMID ####[facility] Dmfedkueus5594 [place], [place] [address]Hh. Bhavani Barragan LYMPHM% 5.0 % Critically low 20.5-60.0 The [facility] Comment on above: Performed By: #### C OMID ####[facility] Bx[address]jmckgbh7428 [place], [place] [address]As. Bhavani Barragan MCH 29.6 pg Normal 26.7-34.0 [facility] Comment on above: Performed By: #### C OMID ####[facility] Gpdcwtitrf6764 [place], [place] [address]Uv. Bhavani Barragan MCHC 30.7 g/dl Normal 29.9-35.2 [facility] Comment on above: Performed By: #### C OMID ####[facility] Id[address]udld6721 [place], [place] [address]Hl. Bhavani Barragan MCV 96.4 fL Normal 81.0-99.0 [facility] Comment on above: Performed By: #### C OMID ####[facility] Bew[address]zark6[address] [place], [place] [address]Tm. Bhavani Barragan METAMYELOCYTE # Normal [facility] Comment on above: Performed By: #### Jany ANNE ####[facility] [address]vtjb[address] [place] [id number]. Bhavani Barragan METAMYELOCYTE % Normal [facility] Comment on above: Performed By: #### C OMID ####[facility] Ncpqdkvvwv9922 [place] [id number]. Bhavani Barragan MONOM# 0.70 103/ul Normal 0.30-0.80 [facility] Comment on above: Performed By: #### C OMID ####[facility] F[address]wwixa7[address] [place] [id number]. Bhavani Barragan MONOM% 2.0 % Normal 1.7-12.0 [facility] Comment on above: Performed By: #### C OMID ####[facility] Pilddcotww4586 [place] [id number]. Bhavani Barragan MPV 9.8 fL Normal 9.5-13.5 [facility] Comment on above: Performed By: #### C OMID ####[facility] [address] [place], [place] [address]Dr. Bhavani Barragan MYELOCYTE # Normal [facility] Comment on above: Performed By: #### C OMID ####[facility] Cpve[address]ie[address] [place], [place] [address]Dr. Bhavani Barragan MYELOCYTE % Normal [facility] Comment on above: Performed By: #### C OMID ####[facility] Vprjejyies[address] [place] [id number]. Bhavani Barragan NRBC Normal [facility] Comment on above: Performed By: #### C OMID ####[facility] W[address]pxspmodj17[address] [place] [id number]. Bhavani Barragna PLT 382 103/ul Normal 150-450 [facility] Comment on above: Performed By: #### C OMID ####[facility] [address] [place], [place] [address]Dr. Bhavani Barragan RBC 3.38 106/ul Critically low 4.20-5.40 [facility] Comment on above: Performed By: #### C OMID ####[facility] [address] [place], [place] [address]Dr. Bhavani Laurel RDW 17.7 % Critically high 11.0-15.0 [facility] Comment on above: Performed By: #### C OMID ####[facility] [address] [place] [address]Dr. Bhavani Laurel SEG # 30.80 103/ul Critically high 1.40-6.50 [facility] Comment on above: Performed By: #### C OMID ####[facility] Levkjldmlr[address] [place] [address]Dr. Bhavani Laurel SEG % 88.0 % Critically high 43.0-75.0 [facility] Comment on above: Performed By: #### C OMID ####[facility] Q[address]ailnx[address] [place] [address]Dr. Jayceeroxi Barragan WBC 35.0 103/ul Critically high 4.0-11.0 [facility] Comment on above: Performed By: #### Jany ANNE ####[facility] [address]zxqjb[address] [place] [address]Dr. Bhavani Barragan PROF 14(COMP METB)on 023 Albumin [Mass/Vol] 2.6 g/dL Critically low 3.4-5.0 [facility] Comment on above: Performed By: #### C ALISTAIR, TSH ####[facility] [address]cfmzp[address] [place] [address]Dr. Bhavani Barragan Albumin/Globulin [Mass ratio] 0.6 {ratio} Normal [facility] Comment on above: Performed By: #### C MP, TSH ####[facility] [address] [place] [address]Dr. Bhavani Barragan ALP [Catalytic activity/Vol] 117 U/L Critically high 46-116 [facility] Comment on above: Performed By: #### C MP, TSH ####[facility] Pswaftysbg46[address] [place] [address]Dr. Bhavani Barragan ALT [Catalytic activity/Vol] 11 U/L Critically low 14-59 [facility] Comment on above: Performed By: #### C MP, TSH ####[facility] [address]ib[address]prta[address] [place] [address]Dr. Bhavani Barragan Anion gap [Moles/Vol] 13.0 mmol/L Normal [facility] Comment on above: Performed By: #### C MP, TSH ####[facility] Ex[address]qgwh[address] [place] [address]Dr. Bhavani Barragan AST [Catalytic activity/Vol] 19 U/L Normal 15-37 [facility] Comment on above: Performed By: #### C MP, TSH ####[facility] [address]yiez[address] [place] [address]Dr. Bhavani Barragan Bilirubin [Mass/Vol] 0.4 mg/dL Normal 0.2-1.0 [facility] Comment on above: Performed By: #### C MP, TSH ####[facility] [address]fcysms[address]46 [place] [address]Dr. Bhavani Barragan Calcium [Mass/Vol] 8.9 mg/dL Normal 8.5-10.1 [facility] Comment on above: Performed By: #### C MP, TSH ####[facility] [address]oo[address] [place] [address]Dr. Bhavani Barragan Chloride [Moles/Vol] 103 mmol/L Normal 98-107 [facility] Comment on above: Performed By: #### C MP, TSH ####[facility] Pgpxadcszn[address] [place] [address]Dr. Bhavani Barragan CO2 [Moles/Vol] 26.8 mmol/L Normal 21.0-32.0 The [facility] Comment on above: Performed By: #### C MP, TSH ####[facility] Sxiztwrhkr95[address] [place] [address]Dr. Bhavani Barragan Creatinine [Mass/Vol] 1.44 mg/dL Critically high 0.55-1.02 [facility] Comment on above: Performed By: #### C MP, TSH ####[facility] Zrtavojkyo8[address] [place] [address]Dr. Bhavani Barragan EGFR-AF BENINESE 42 mL/min/1.73m2 Critically low >=60 [facility] Comment on above: Performed By: #### C MP, TSH ####[facility] Emuptjyrqs8760 [place] [id number]. Bhavani Barragan EGFR-NON AF BENINESE 35 mL/min/1.73m2 Critically low >=60 [facility] Comment on above: Performed By: #### C MP, TSH ####[facility] Showjsledt59[address] [place] [address]Dr. Bhavani Barragan Globulin (S) [Mass/Vol] 4.4 g/dL Normal [facility] Comment on above: Performed By: #### C MP, TSH ####[facility] Cjvvpuwvty0631 [place] [address]Dr. Bhavani Barragan Glucose [Mass/Vol] 90 mg/dL Normal 74-106 [facility] Comment on above: Performed By: #### C MP, TSH ####[facility] Mopflatpej[address] [place], [place] [address]Dr. Bhavani Barragan Potassium [Moles/Vol] 4.8 mmol/L Normal 3.5-5.1 [facility] Comment on above: Performed By: #### C MP, TSH ####[facility] Hpruqnljsy6[address] [place], [place] [address]Dr. Bhavani Barragan Protein [Mass/Vol] 7.0 g/dL Normal 6.4-8.2 [facility] Comment on above: Performed By: #### C MP, TSH ####[facility] Jexbwzieqs80[address] [place], [place] [address]Dr. Bhavani Barragan Sodium [Moles/Vol] 138 mmol/L Normal 136-145 [facility] Comment on above: Performed By: #### C MP, TSH ####[facility] Fpnpneqkdp95[address] [place], [place] [address]Dr. Bhavani Barragan Urea nitrogen [Mass/Vol] 32.0 mg/dL Critically high 7.0-18.0 [facility] Comment on above: Performed By: #### C MP, TSH ####[facility] Hljpynfwox[address] [place], [place] [address]Dr. Bhavani Barragan Urea nitrogen/Creatinine [Mass ratio] 22.2 mg/mg Normal [facility] Comment on above: Performed By: #### C MP, TSH ####[facility] Swtwckgkfx80[address] [place] [id number]. Bhavani Barragan TSHon 03-01-2023 TSH 3.630 uIU/mL Normal 0.358-3.740 [facility] Comment on above: Performed By: #### C MP, TSH ####[facility] Bsujbfoxdd45[address] [place] [address]Dr. Jayceeroxi Laurel CULTURE URINEon 02-09-2023 CULTURE URINE Normal The [facility] Comment on above: Performed By: #### U RCX ####[facility] Aytapwctsp360[address] [place], [place] [address]Dr. Jayceeroxi Laurel CBC W MANUAL DIFFon 02-07-20 23 ANISOCYTOSIS 1+ Normal [facility] Comment on above: Performed By: #### C OMID ####[facility] Dfgikxcvkk55[address] [place], [place] [address]Dr. Bhavani Barragan ATYPICAL LYMPH # Normal [facility] Comment on above: Performed By: #### C OMID ####[facility] Ltzymqhbkh1742 [place] [address]Dr. Bhavani Barragan ATYPICAL LYMPH % Normal [facility] Comment on above: Performed By: #### C OMID ####[facility] Ggwyyjqvfs4542 [place] [address]Dr. Bhavani Barragan BAND # 1.2 103/ul Critically high 0.0-0.3 The [facility] Comment on above: Performed By: #### C BCJERSON ####[facility] Msetwdhvdn1206 [place] [address]Dr. Bhavani Barragan BAND % 5 % Normal 0-5 [facility] Comment on above: Performed By: #### C BCMAN ####[facility] Zutappvmbg294[address] [place], [place] [address]Dr. Bhavani Barragan BASOM # 0.00 103/ul Normal 0.00-0.10 [facility] Comment on above: Performed By: #### C OMID ####[facility] Syokvanwrk7[address] [place], [place] [address]Dr. Bhavani Barragan BASOM % 0.0 % Critically low 0.2-2.0 The [facility] Comment on above: Performed By: #### C BCMAN ####[facility] Rslpmzxznn0575 [place] [id number]. Bhavani Barragan BLAST # Normal [facility] Comment on above: Performed By: #### C BCMAN ####[facility] Nyfxyhoyox0972 [place] [address]Dr. Bhavani Barragan BLAST % Normal [facility] Comment on above: Performed By: #### C BCJERSON ####[facility] Oithpoxexw5637 [place] [address]Dr. Bhavani Barragan CORRECTED WBC Normal 4.0-11.0 The [facility] Comment on above: Performed By: #### C OMID ####[facility] Nefismsqja8[address] [place], [place] [address]Dr. Bhavani Barragan EOS # 0.00 103/ul Normal 0.00-0.70 [facility] Comment on above: Performed By: #### C OMID ####[facility] Fzkwqsgkkl6491 [place] [address]Dr. Bhavani Barragan EOS% 0.0 % Critically low 0.9-7.0 The [facility] Comment on above: Performed By: #### C BCJERSON ####[facility] Miyyaamzkm2468 [place] [address]Dr. Bhavani Barragan HCT 39.3 % Normal 36.0-48.0 [facility] Comment on above: Performed By: #### C BCJERSON ####[facility] Ectrjebnrb[address] [place], [place] [address]Dr. Bhavani Barragan HGB 12.6 g/dl Normal 12.0-16.0 [facility] Comment on above: Performed By: #### C BCJERSON ####[facility] Npjldxvkni[address] [place], [place] [address]Dr. Bhavani Barragan LYMPHM # 2.11 103/ul Normal 1.20-3.80 [facility] Comment on above: Performed By: #### C BCJERSON ####[facility] Rasahvmove0321 [place], [place] [address]Su. Bhavani Barragan LYMPHM% 9.0 % Critically low 20.5-60.0 The [facility] Comment on above: Performed By: #### C OMID ####[facility] Thbciesqmo1778 [place], [place] [address]Nc. Bhavani Barragan MCH 29.6 pg Normal 26.7-34.0 [facility] Comment on above: Performed By: #### C OMID ####[facility] Itxgjydxyb1858 [place] [id number]. Bhavani Barragan MCHC 32.1 g/dl Normal 29.9-35.2 [facility] Comment on above: Performed By: #### C OMID ####[facility] Bbqcovorie5782 [place] [id number]. Bhavani Barragan MCV 92.3 fL Normal 81.0-99.0 [facility] Comment on above: Performed By: #### C OMID ####[facility] Rlleluhqav9614 [place] [id number]. Bhavani Barragan METAMYELOCYTE # Normal The [facility] Comment on above: Performed By: #### C OMID ####[facility] Yhkdbquwiq4725 [place] [id number]. Bhavani Barragan METAMYELOCYTE % Normal The [facility] Comment on above: Performed By: #### C OMID ####[facility] Wwrtppuuye4709 [place] [id number]. Bhavani Barragan MONOM# 0.94 103/ul Critically high 0.30-0.80 [facility] Comment on above: Performed By: #### C OMID ####[facility] Anmsjovdgn0228 [place] [id number]. Bhavani Barragan MONOM% 4.0 % Normal 1.7-12.0 [facility] Comment on above: Performed By: #### C OMID ####[facility] Afpqybwplk0152 [place] [id number]. Bhavani Barragan MPV 11.0 fL Normal 9.5-13.5 [facility] Comment on above: Performed By: #### C BCJERSON ####[facility] Byrftkanmk0709 [place], [place] [address]Kp. Bhavani Barragan MYELOCYTE # Normal [facility] Comment on above: Performed By: #### C OMID ####[facility] Snobdypvtn4885 [place], [place] [address]Ym. Bhavani Barragan MYELOCYTE % Normal [facility] Comment on above: Performed By: #### C OMID ####[facility] Zycrsumvwu7521 [place] [id number]. Bhavani Barragan NRBC Normal [facility] Comment on above: Performed By: #### C OMID ####[facility] Opfuysrrwx0849 [place] [id number]. Bhavani Barragan PLT 198 103/ul Normal 150-450 [facility] Comment on above: Performed By: #### C OMID ####[facility] Enfahtpdxw3651 [place] [id number]. Bhavani Barragan RBC 4.26 106/ul Normal 4.20-5.40 [facility] Comment on above: Performed By: #### C OMID ####[facility] Kyirzrddep0612 [place] [id number]. Bhavani Barragan RDW 16.3 % Critically high 11.0-15.0 The [facility] Comment on above: Performed By: #### C OMID ####[facility] Kipfgtoude5741 [place] [id number]. Bhavani Barragan SEG # 19.19 103/ul Critically high 1.40-6.50 [facility] Comment on above: Performed By: #### C OMID ####[facility] Cslvhynnel2714 [place] [id number]. Bhavani Barragan SEG % 82.0 % Critically high 43.0-75.0 The [facility] Comment on above: Performed By: #### C OMID ####[facility] Fecairhthw5159 [place], [place] [address]Zd. Bhavani Barragan WBC 23.4 103/ul Critically high 4.0-11.0 [facility] Comment on above: Performed By: #### C BCMAN ####[facility] Qzheowndjo8103 [place], [place] [address]Kf. Bhavani Barragan CT LSPINE WO CONon 3 CT LSPINE WO CON Normal [facility] CT PELVIS WO CONon 3 CT PELVIS WO CON Normal [facility] CULTURE BLOODon 02-06-2023 Microscopic examination of blood, culture Culture Observations: NO GROWTH AT 5 DAYS. Normal [facility] Comment on above: Performed By: #### B LDCX2 ####[facility] Lequqrqivg8731 [place], [place] [address]Ke. Bhavani Barragan Performed By: #### B LDCX1 ####[facility] Gakucyzhmw3077 [place], [place] [address]Wb. Bhavani Laurel Covid-19 PCR (CVDTB)on 01-17 SARS-CoV-2 (COVID-19) RNA MATTHEW+probe Ql (Unsp spec) Not detected Normal NOT DETECTED [facility] Comment on above: Result Comment: When diagnostic [...] for this test is supported by the [place] of Health and Human Service's declaration that [...] be used). Performed By: #### C VDTBH ####[facility] Oukdncfbza4313 [place], [place] [address]Wp. Bhavani Barragan ER URINE PROFILEon 3 Bilirubin Ql (U) Negative Normal NEGATIVE [facility] Comment on above: Performed By: #### U MICRO, ERUR ####[facility] Pkslaefsdp4424 [place] [address]Dr. Bhavani Barragan Clarity (U) SL CLOUDY Abnormal CLEAR [facility] Comment on above: Performed By: #### U MICRO, ERUR ####[facility] Lpvikmkwlf2373 [place] [address]Dr. Bhavani Barragan Color (U) LT. YELLOW Normal YELLOW [facility] Comment on above: Performed By: #### U MICRO, ERUR ####[facility] Snhickylsg[address] [place], [place] [address]Dr. Bhavani Barragan ERUAHD A micrscopic examination will be performed if indicated. Normal [facility] Comment on above: Performed By: #### U MICRO, ERUR ####[facility] Ntnhyfbmdi64[address] [place], [place] [address]Dr. Bhavani Barragan Glucose Ql (U) Negative Normal NEGATIVE The [facility] Comment on above: Performed By: #### U MICRO, ERUR ####[facility] Kvqmceraee04[address] [place], [place] [address]Dr. hBavani Barragan Hemoglobin Ql (U) TRACE-INTACT Abnormal NEGATIVE [facility] Comment on above: Performed By: #### U MICRO, ERUR ####[facility] Zjplwicbae4454 [place] [address]Dr. Bhavani Barragan Ketones Ql (U) Negative Normal NEGATIVE The [facility] Comment on above: Performed By: #### U MICRO, ERUR ####[facility] [address]utqfsxuk[address] [place], [place] [address]Dr. Bhavani Barragan LEUKOCYTES SMALL Abnormal NEGATIVE [facility] Comment on above: Performed By: #### U MICRO, ERUR ####[facility] Kismboejqh[address] [place], [place] [address]Dr. Bhavani Barragan Nitrite Ql (U) Positive Abnormal NEGATIVE The [facility] Comment on above: Performed By: #### U MICRO, ERUR ####[facility] Vbnnvmmjxq496[address] [place], [place] [address]Dr. Bhavani Barragan pH (U) 6.0 [pH] Normal 5-9 [facility] Comment on above: Performed By: #### U MICRO, ERUR ####[facility] Uglczguibz1321 [place] [address]Dr. Bhavani Barragan Protein (U) [Mass/Vol] 30 mg/dL Abnormal NEGATIVE/ TRACE [facility] Comment on above: Performed By: #### U MICRO, ERUR ####[facility] Cmjdvzewrm1787 [place] [address]Dr. Bhavani Barragan SPEC GRAVITY 1.020 Normal 1.005-<=1.02 5 [facility] Comment on above: Performed By: #### U MICRO, ERUR ####[facility] Mujytolpux27[address] [place], [place] [address]Dr. Bhavani Barragan UR MICRO IND INDICATED Normal [facility] Comment on above: Performed By: #### U MICRO, ERUR ####[facility] Brzjjmhxuv5825[address] [place], [place] [address]Dr. Bhavani Barragan Urobilinogen Qn (U) 0.2 {Ridge'U}/dL Normal 0.2 - 1. 0 [facility] Comment on above: Performed By: #### U MICRO, ERUR ####[facility] Udwrbpvygj[address] [place], [place] [address]Dr. Bhavani Barragan LACTATE/LACTIC ACIDon 2022 Lactate [Moles/Vol] 1.5 mmol/L Normal 0.4-2.0 [facility] Comment on above: Performed By: #### L ACT ####[facility] Qcuznrtona8[address] [place], [place] [address]Dr. Bhavani Barragan PROF CHEM 8 (BAS METB)on Anion gap [Moles/Vol] 14.7 mmol/L Normal [facility] Comment on above: Performed By: #### B MP ####[facility] Famntmgttn387[address] [place], [place] [address]Dr. Bhavani Barragan Calcium [Mass/Vol] 8.2 mg/dL Critically low 8.5-10.1 [facility] Comment on above: Performed By: #### B MP ####[facility] Ovpgvfgafe7901 [place] [address]Dr. Bhavani Barragan Chloride [Moles/Vol] 103 mmol/L Normal 98-107 [facility] Comment on above: Performed By: #### B MP ####[facility] Wqdnhsplhz2066 [place] [address]Dr. Bhavani Barragan CO2 [Moles/Vol] 22.4 mmol/L Normal 21.0-32.0 [facility] Comment on above: Performed By: #### B MP ####[facility] Aavdttvdjj10[address] [place], [place] [address]Dr. Bhavani Barragan Creatinine [Mass/Vol] 1.39 mg/dL Critically high 0.55-1.02 [facility] Comment on above: Performed By: #### B MP ####[facility] Goezkdmqyd9[address] [place], [place] [address]Dr. Bhavani Laurel EGFR-AF BENINESE 44 mL/min/1.73m2 Critically low >=60 [facility] Comment on above: Performed By: #### B MP ####[facility] Iwwzcgwlln[address] [place], [place] [address]Dr. Bhavani Laurel EGFR-NON AF BENINESE 36 mL/min/1.73m2 Critically low >=60 [facility] Comment on above: Performed By: #### B MP ####[facility] Zvfqeseggt501[address] [place], [place] [address]Dr. Bhavani Barragan Glucose [Mass/Vol] 161 mg/dL Critically high 74-106 [facility] Comment on above: Performed By: #### B MP ####[facility] Nbsmvpcorz8[address] [place], [place] [address]Dr. Jayceeroxi Laurel Potassium [Moles/Vol] 4.1 mmol/L Normal 3.5-5.1 [facility] Comment on above: Performed By: #### B MP ####[facility] Goxuulqldm[address] [place], [place] [address]Dr. Bhavani Barragan Sodium [Moles/Vol] 136 mmol/L Normal 136-145 [facility] Comment on above: Performed By: #### B MP ####[facility] Nvrzqylefl6150 [place] [address]Dr. Bhavani Barragan Urea nitrogen [Mass/Vol] 23.0 mg/dL Critically high 7.0-18.0 [facility] Comment on above: Performed By: #### B MP ####[facility] Exnklpruzg[address] [place], [place] [address]Dr. Bhavani Barragan Urea nitrogen/Creatinine [Mass ratio] 16.5 mg/mg Normal [facility] Comment on above: Performed By: #### B MP ####[facility] Bcpnaqfqpo[address] [place], [place] [address]Dr. Bhavani Laurel PROTIMEon 02-06-2023 INR Coag (PPP) [Relative time] 1.12 {INR} Normal [facility] Comment on above: Performed By: #### P TT, PT ####[facility] Wcxnudlkbx347[address] [place], [place] [address]Dr. Bhavani Barragan INR GUIDELINES SEE BELOW Normal [facility] Comment on above: Result Comment: WALKER RED INR: 2.0 - 3.0 CONDITIONS NOT LISTED BELOW 2.5 - 3.5 FOR PROSTHETIC HEART VALVE REPLACEMENT 2.5 - 3.5 RECURRENT THROMBOSIS Performed By: #### P TT, PT ####[facility] Vpidmpohyt8[address] [place], [place] [address]Dr. Bhavani Barragan PT Coag (PPP) [Time] 11.8 s Critically high 9.0-11.6 [facility] Comment on above: Performed By: #### P TT, PT ####[facility] Xkqdmrkhqz[address] [place], [place] [address]Dr. Bhavani Laurel PTTon 02-06-2023 aPTT Coag (Bld) [Time] 23.8 s Normal 22.3-36.2 [facility] Comment on above: Performed By: #### P TT, PT ####[facility] Jpjrprbtnx[address] [place], [place] [address]Dr. Jayceeroxi Barragan URINE MICROSCOPIC ONLYon BACTERIA LARGE Abnormal NONE SEEN [facility] Comment on above: Performed By: #### U MICRO, ERUR ####[facility] Uabipfcymn29[address] [place] [address]Dr. Bhavani Barragan Bacteria identified Cx Nom (U) INDICATED Normal [facility] Comment on above: Performed By: #### U MICRO, ERUR ####[facility] Vqgwbkzkud7390 [place] [address]Dr. Jayceeroxi Barragan CAST NONE SEEN Normal NONE SEEN [facility] Comment on above: Performed By: #### U MICRO, ERUR ####[facility] Rmjqqvlznh7604 [place] [address]Dr. Bhavani Barragan Crystals LM Nom (Urine sed) NONE SEEN Normal NONE SEEN [facility] Comment on above: Performed By: #### U MICRO, ERUR ####[facility] Quvadyicdr[address] [place], [place] [address]Dr. Bhavani Barragan Epithelial cells LM Ql (Urine sed) RARE Normal NONE SEEN /RARE [facility] Comment on above: Performed By: #### U MICRO, ERUR ####[facility] Etbdsytwyy8789 [place] [address]Dr. Bhavani Barragan MUCOUS NONE SEEN Normal NONE SEEN [facility] Comment on above: Performed By: #### U MICRO, ERUR ####[facility] Dkpjhiagsk88[address] [place], [place] [address]Dr. Bhavani Barragan RBC 0-2 Normal 0-2 [facility] Comment on above: Performed By: #### U MICRO, ERUR ####[facility] Btdobyaiwr5[address] [place], [place] [address]Dr. Bhavani Barragan WBC 10-20 Abnormal NONE SEEN [facility] Comment on above: Performed By: #### U MICRO, ERUR ####[facility] Fiuhkmkvvi4020 [place] [address]Dr. Bhavani Barragan XR CHEST 1 Von 02-06-2023 XR CHEST 1 V Normal [facility] XR FEMUR RTon 02-06-2023 XR FEMUR RT Normal [facility] CBC AUTO DIFFon 01-18-2023 BASO # 0.1 103/ul Normal 0.0-0.1 [facility] Comment on above: Performed By: #### C BC ####[facility] Wihmhqmfbm8612 [place] [id number]. Bhavani Barragan Basophils/100 WBC (Bld) 0.7 % Normal 0.2-2.0 [facility] Comment on above: Performed By: #### C BC ####[facility] T[address]sobqw[address] [place], [place] [address]Dr. Bhavani Barragan EO # 0.0 103/ul Normal 0.0-0.7 [facility] Comment on above: Performed By: #### C BC ####[facility] Fmbpfnxygf[address] [place], [place] [address]Dr. Bhavani Barragan Eosinophils/100 WBC (Bld) 0.2 % Critically low 0.9-7.0 [facility] Comment on above: Performed By: #### C BC ####[facility] Wjacjnmjye[address] [place], [place] [address]Dr. Bhavani Barragan Erythrocyte distribution width (RBC) [Ratio] 16.4 % Critically high 11.0-15.0 [facility] Comment on above: Performed By: #### C BC ####[facility] Jbjugwzasc8[address] [place], [place] [address]Dr. Bhavani Barragan Hematocrit (Bld) [Volume fraction] 41.5 % Normal 36.0-48.0 [facility] Comment on above: Performed By: #### C BC ####[facility] Zipbahspiz[address] [place], [place] [address]Dr. Bhavani Barragan Hemoglobin (Bld) [Mass/Vol] 13.0 g/dL Normal 12.0-16.0 [facility] Comment on above: Performed By: #### C BC ####[facility] Iwiucloqho7[address] [place], [place] [address]Dr. Bhavani Barragan IG # 0.24 10e3/ul Critically high 0.00-0.03 [facility] Comment on above: Performed By: #### C BC ####[facility] Grcrivqytj[address] [place], [place] [address]Dr. Bhavani Barragan IG % 1.3 % Critically high 0.0-0.5 [facility] Comment on above: Performed By: #### C BC ####[facility] Wvantetwsi0355 [place] [id number]. Bhavani Barragan LYMPH # 1.5 103/ul Normal 1.2-3.8 [facility] Comment on above: Performed By: #### C BC ####[facility] Zretnrwkkm1206 [place] [id number]. Bhavani Barragan Lymphocytes/100 WBC (Bld) 8.1 % Critically low 20.5-60.0 [facility] Comment on above: Performed By: #### C BC ####[facility] Enabalknoe2346 [place] [id number]. Bhavani Barragan MANUAL DIFF REQ NO Normal The [facility] Comment on above: Performed By: #### C BC ####[facility] [address] [place] [id number]. Bhavani Barragan MCH (RBC) [Entitic mass] 28.9 pg Normal 26.7-34.0 [facility] Comment on above: Performed By: #### C BC ####[facility] [address]axh[address]xodg[address] [place] [id number]. Bhavani Barragan MCHC (RBC) [Mass/Vol] 31.3 g/dL Normal 29.9-35.2 The [facility] Comment on above: Performed By: #### C BC ####[facility] Yasbplexkz[address] [place] [id number]. Bhavani Barragan MCV (RBC) [Entitic vol] 92.2 fL Normal 81.0-99.0 The [facility] Comment on above: Performed By: #### C BC ####[facility] Eb[address]mrjn[address] [place] [id number]. Bhavani Barragan MONO # 0.2 103/ul Critically low 0.3-0.8 The [facility] Comment on above: Performed By: #### C BC ####[facility] Mwlibhqcvz6355 [place] [id number]. Bhavani Barragan Monocytes/100 WBC (Bld) 1.3 % Critically low 1.7-12.0 The [facility] Comment on above: Performed By: #### C BC ####[facility] [address] [place] [id number]. Bhavani Barragan NEUT # 16.0 103/ul Critically high 1.4-6.5 The [facility] Comment on above: Performed By: #### C BC ####[facility] Rpkfrgpttw5475 [place] [id number]. Bhavani Barragan Neutrophils/100 WBC (Bld) 88.4 % Critically high 43.0-75.0 The [facility] Comment on above: Performed By: #### C BC ####[facility] T[address]dnphjcy[address] [place] [id number]. Bhavani Barragan Platelet mean volume (Bld) [Entitic vol] 12.1 fL Normal 9.5-13.5 The [facility] Comment on above: Performed By: #### C BC ####[facility] [address]axd[address] [place] [address]Dr. Bhavani Barragan PLT 170 103/ul Normal 150-450 The [facility] Comment on above: Performed By: #### C BC ####[facility] Zbgmpvbhrg4[address] [place] [id number]. Bhavani Barragan RBC 4.50 106/ul Normal 4.20-5.40 The [facility] Comment on above: Performed By: #### C BC ####[facility] Ktpip[address]qizj[address] [place] [id number]. Bhavani Barragan WBC 18.1 103/ul Critically high 4.0-11.0 The [facility] Comment on above: Performed By: #### C BC ####[facility] Axgrbkkzrf[address] [place] [id number]. Bhavani Barragan ECHOCARDIO M/2D COMPLETEon 0 01-18-2023 ECHOCARDIO M/2D COMPLETE Normal The [facility] Endoscopy Reporton 2 Endoscopy Report MR#: [id number] [facility] Pt. Name: María Elena Tafoya Surgery Date: [...] Barillas M.D. Date Trans: 06/27/2022 03:26 A/erik [id number] cc: Bennie Albright M.D. [address] [place] [address] Normal The [facility] ABDOMEN 1 [facility] 06-26-2022 ABDOMEN 1 [facility] Department of Radiology [address] [place] [phone] ======== Patient Name: MARÍA ELENA TAFOYA [...] identified. Electronically signed: Roge Bah. Transcribed by: [email or web address], User Resident: Electronically Signed by: ROGE BAH @ 06/26/2022 11:52 AM Normal The [facility] Comment on above: Order Comment: Check Stent Position, NO ERCPon 06-26-2022 ERCP [facility] Department of Radiology [address] [place] [phone] ======== Patient Name: MARÍA ELENA TAFOYA : 1940 Sex: F Age: Race: White Pt. 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 Electronically signed: FARSHAD SILVA. Transcribed by: [email or web address], User Resident: Electronically Signed by: FARSHAD SILVA @ 06/27/2022 09:15 AM Normal The [facility] Comment on above: Order Comment: , [place] ointment Date: 06/26/2022 , Appointment Time: 1015 , Appointment Date: 06/26/2022 , Appointment Time: 1015 , , , Ordering Provider - ELIU BRAUN MD , POC GLUCOSE LABon 06-26-2022 Glucose [Mass/Vol] 121 mg/dL High 70-100 The [facility] Comment on above: Performed By: #### 8 5499 #### [facility] [address] [facility] [place] [address], [facility] Glucose [Mass/Vol] 116 mg/dL High 70-100 The [facility] Comment on above: Performed By: #### 8 5499 #### [facility] [address] [facility] [place] [address], [facility] POC SARS COV2 IDon 2 SARS-CoV-2 (COVID-19) RNA MATTHEW+probe Ql (Unsp spec) Negative Normal NEGATIVE The [facility] Comment on above: Result Comment: ID N [...] Accreditation. Performed By: #### 8 5499 #### [facility] [address] [place] [address], [place] XR MODIFIED BARIUM SWALLOWon 05-08-2022 XR MODIFIED BARIUM SWALLOW Normal The [facility] POC GLUCOSE LABon 04-16-2022 Glucose [Mass/Vol] 103 mg/dL High 70-100 The [facility] Comment on above: Performed By: #### 8 5499 ####[facility] [place] [address], [place] POC GLUCOSE LABon 04-15-2022 Glucose [Mass/Vol] 112 mg/dL High 70-100 The [facility] Comment on above: Performed By: #### 8 5499 #### [facility] [address] [place] [address], [place] Glucose [Mass/Vol] 131 mg/dL High 70-100 The [facility] Comment on above: Performed By: #### 8 5499 #### [facility] [address] [place] [address], [place] Glucose [Mass/Vol] 122 mg/dL High 70-100 The [facility] Comment on above: Performed By: #### 5 0608 #### [facility] [address] [place] [address], [place] Glucose [Mass/Vol] 118 mg/dL High 70-100 The [facility] Comment on above: Performed By: #### 8 5499 #### [facility] [address] [place] [address], [facility] BASIC METABOLIC PANELon 05-2 Calcium [Mass/Vol] 8.1 mg/dL Low 8.6-10.3 The [facility] Comment on above: Order Comment: No: D o not add to previous draw Performed By: #### 2 2706 #### [facility] [address] [place] [address], [facility] Chloride [Moles/Vol] 104 mmol/L Normal 98-107 The [facility] Comment on above: Order Comment: No: D o not add to previous draw Performed By: #### 2 2706 #### [facility] [address] [place] [address], [place] CO2 [Moles/Vol] 27 mmol/L Normal 21-31 The [facility] Comment on above: Order Comment: No: D o not add to previous draw Performed By: #### 2 2706 #### [facility] [address] [place] [address], [facility] Creatinine [Mass/Vol] 1.34 mg/dL High 0.60-1.20 The [facility] Comment on above: Order Comment: No: D o not add to previous draw Performed By: #### 2 2706 #### [facility] [address] [place] [address], [facility] eGFR- 46 ml/min/1.73sq m Abnormal >60 The [facility] Comment on above: Order Comment: No: D o not add to previous draw Result Comment: Calc ulation may not be valid for patients over 70 years Performed By: #### 2 2706 #### [facility] [address] [place] [address], [facility] eGFR- non- 38 ml/min/1.73sq m Abnormal >60 The [facility] Comment on above: Order Comment: No: D o not add to previous draw Result Comment: Calc ulation may not be valid for patients over 70 years Performed By: #### 2 2706 #### [facility] [address] [place] [address], [place] Glucose [Mass/Vol] 106 mg/dL High 70-100 [facility] Comment on above: Order Comment: No: D o not add to previous draw Performed By: #### 2 2706 #### [facility] [address] [place] [address], [place] Potassium [Moles/Vol] 4.9 mmol/L Normal 3.5-5.1 The [facility] Comment on above: Order Comment: No: D o not add to previous draw Performed By: #### 2 2706 #### [facility] [address] [place] [address], [place] Sodium [Moles/Vol] 135 mmol/L Low 136-145 The [facility] Comment on above: Order Comment: No: D o not add to previous draw Performed By: #### 2 2706 #### [facility] [address] [place] [address], [facility] Urea nitrogen [Mass/Vol] 22 mg/dL Normal 7-25 The [facility] Comment on above: Order Comment: No: D o not add to previous draw Performed By: #### 2 2706 #### [facility] [address] [place] [address], [place] CBC COMPLETE BLOOD COUNTon 0 - Erythrocyte distribution width (RBC) [Ratio] 20.9 % High 11.5-15.0 The [facility] Comment on above: Order Comment: No: D o not add to previous draw Performed By: #### 8 5499 #### [facility] [address] [place] [address], [place] Hematocrit (Bld) [Volume fraction] 27.5 % Low 36.0-45.0 The [facility] Comment on above: Order Comment: No: D o not add to previous draw Performed By: #### 8 5499 #### [facility] [address] [place] [address], [facility] Hemoglobin (Bld) [Mass/Vol] 8.5 g/dL Low 12.0-15.0 [facility] Comment on above: Order Comment: No: D o not add to previous draw Performed By: #### 8 5499 #### [facility] [address] [place] [address], [facility] IMM PLATELET FRAC 10.2 % High 0.8-6.3 The [facility] Comment on above: Order Comment: No: D o not add to previous draw Performed By: #### 8 5499 #### [facility] [address] [place] [address], [facility] MCH (RBC) [Entitic mass] 31.1 pg Normal 27.0-33.0 The [facility] Comment on above: Order Comment: No: D o not add to previous draw Performed By: #### 8 5499 #### [facility] [address] [place] [address], [facility] MCHC (RBC) [Mass/Vol] 30.9 g/dL Low 32.0-35.0 The [facility] Comment on above: Order Comment: No: D o not add to previous draw Performed By: #### 8 5499 #### [facility] [address] [place] [address], [facility] MCV (RBC) [Entitic vol] 100.7 fL High 82.0-98.0 [facility] Comment on above: Order Comment: No: D o not add to previous draw Performed By: #### 8 5499 #### [facility] [address] [place] [address], [facility] Nucleated RBC/100 WBC (Bld) [Ratio] 0 % Normal 0-0 The [facility] Comment on above: Order Comment: No: D o not add to previous draw Performed By: #### 8 5499 #### [facility] [address] [place] [address], [place] PLAT ESTIMATE Normal Normal The [facility] Comment on above: Order Comment: No: D o not add to previous draw Result Comment: EDTA smear shows platelet clumping, see platelet estimate Performed By: #### 8 5499 #### [facility] [address] [place] [address], [place] RBC (Bld) [#/Vol] 2.73 10*6/uL Low 3.80-5.00 The [facility] Comment on above: Order Comment: No: D o not add to previous draw Performed By: #### 8 5499 #### [facility] [address] [place] [address], [place] WBC (Bld) [#/Vol] 19.62 10*3/uL High 4.00-10.60 The [facility] Comment on above: Order Comment: No: D o not add to previous draw Performed By: #### 8 5499 #### [facility] [address] [place] [address], [place] MAGNESIUM BLOODon 04-14-2022 Magnesium [Mass/Vol] 1.9 mg/dL Normal 1.9-2.7 [facility] Comment on above: Order Comment: No: D o not add to previous draw Performed By: #### 2 2706 #### [facility] [address] [place] [address], [place] POC GLUCOSE LABon 04-14-2022 Glucose [Mass/Vol] 117 mg/dL High 70-100 The [facility] Comment on above: Performed By: #### 3 0313 #### [facility] [address] [place] [address], [place] Glucose [Mass/Vol] 119 mg/dL High 70-100 The [facility] Comment on above: Performed By: #### 8 5499 #### [facility] [address] [place] [address], [place] Glucose [Mass/Vol] 113 mg/dL High 70-100 The [facility] Comment on above: Performed By: #### 8 5499 #### [facility] [address] [place] [address], [place] Glucose [Mass/Vol] 112 mg/dL High 70-100 The [facility] Comment on above: Performed By: #### 8 5499 #### [facility] [address] [place] [address], [place] BASIC METABOLIC PANELon 05-2 Calcium [Mass/Vol] 8.4 mg/dL Low 8.6-10.3 The [facility] Comment on above: Order Comment: Bleed , altereed mental status Performed By: #### 4 1000, , 98369 ####[facility] [place] [address], [place] Chloride [Moles/Vol] 105 mmol/L Normal 98-107 The [facility] Comment on above: Order Comment: Bleed , altereed mental status Performed By: #### 4 1000, , 02696 ####[facility] [place] [address], [place] CO2 [Moles/Vol] 24 mmol/L Normal 21-31 The [facility] Comment on above: Order Comment: Bleed , altereed mental status Performed By: #### 4 1000, 57886, 86164 ####[facility] [place] [address], [place] Creatinine [Mass/Vol] 1.31 mg/dL High 0.60-1.20 The [facility] Comment on above: Order Comment: Bleed , altereed mental status Performed By: #### 4 1000, , 26415 ####[facility] [place] [address], [facility] eGFR- 47 ml/min/1.73sq m Abnormal >60 The [facility] Comment on above: Order Comment: Bleed , altereed mental status Result Comment: Calc ulation may not be valid for patients over 70 years Performed By: #### 4 1000, 18142, 12684 ####[facility] [place] [address], [facility] eGFR- non- 39 ml/min/1.73sq m Abnormal >60 [facility] Comment on above: Order Comment: Bleed , altereed mental status Result Comment: Calc ulation may not be valid for patients over 70 years Performed By: #### 4 1000, 59610, 48475 ####[facility] [place] [address], [place] Glucose [Mass/Vol] 85 mg/dL Normal 70-100 The [facility] Comment on above: Order Comment: Bleed , altereed mental status Performed By: #### 4 1000, 74952, 01161 ####[facility] [place] [address], [place] Potassium [Moles/Vol] 5.2 mmol/L High 3.5-5.1 The [facility] Comment on above: Order Comment: Bleed , altereed mental status Performed By: #### 4 1000, 13901, 07410 ####[facility] [place] [address], [place] Sodium [Moles/Vol] 137 mmol/L Normal 136-145 The [facility] Comment on above: Order Comment: Bleed , altereed mental status Performed By: #### 4 1000, 18163, 43907 ####[facility] [place] [address], [place] Urea nitrogen [Mass/Vol] 21 mg/dL Normal 7-25 [facility] Comment on above: Order Comment: Bleed , altereed mental status Performed By: #### 4 1000, 18587, 92208 ####[facility] [facility] CBC COMPLETE BLOOD COUNTon 04-13-2022 Erythrocyte distribution width (RBC) [Ratio] 20.4 % High 11.5-15.0 The [facility] Comment on above: Order Comment: No: D o not add to previous draw Performed By: #### 8 5499 #### [facility] [address] [place] [address], [facility] Hematocrit (Bld) [Volume fraction] 29.2 % Low 36.0-45.0 [facility] Comment on above: Order Comment: No: D o not add to previous draw Performed By: #### 8 5499 #### [facility] [address] [place] [id number], [facility] Hemoglobin (Bld) [Mass/Vol] 9.0 g/dL Low 12.0-15.0 [facility] Comment on above: Order Comment: No: D o not add to previous draw Performed By: #### 8 5499 #### [facility] [address] [place] [id number], [facility] MCH (RBC) [Entitic mass] 31.0 pg Normal 27.0-33.0 [facility] Comment on above: Order Comment: No: D o not add to previous draw Performed By: #### 8 5499 #### [facility] [address] [place] [address], [facility] MCHC (RBC) [Mass/Vol] 30.8 g/dL Low 32.0-35.0 [facility] Comment on above: Order Comment: No: D o not add to previous draw Performed By: #### 8 5499 #### [facility] [address] [place] [address], [facility] MCV (RBC) [Entitic vol] 100.7 fL High 82.0-98.0 [facility] Comment on above: Order Comment: No: D o not add to previous draw Performed By: #### 8 5499 #### [facility] [address] [facility] [place] [address], [facility] Nucleated RBC/100 WBC (Bld) [Ratio] 0 % Normal 0-0 [facility] Comment on above: Order Comment: No: D o not add to previous draw Performed By: #### 8 5499 #### [facility] [address] [place] [address], [facility] PLAT CNT 148 10*3/uL Low 150-400 The [facility] Comment on above: Order Comment: No: D o not add to previous draw Performed By: #### 8 5499 #### [facility] [address] [place] [address], [facility] RBC (Bld) [#/Vol] 2.90 10*6/uL Low 3.80-5.00 [facility] Comment on above: Order Comment: No: D o not add to previous draw Performed By: #### 8 5499 #### [facility] [address] [facility] [place] [address], [facility] WBC (Bld) [#/Vol] 22.15 10*3/uL High 4.00-10.60 [facility] Comment on above: Order Comment: No: D o not add to previous draw Performed By: #### 8 5499 #### [facility] [address] [place] [address], [facility] MAGNESIUM BLOODon 04-13-2022 Magnesium [Mass/Vol] 1.7 mg/dL Low 1.9-2.7 [facility] Comment on above: Order Comment: Bleed , altereed mental status Performed By: #### 4 1000, 48499, 16528 ####[facility] [place] [address], [facility] PHOSPHORUS BLOODon Phosphate [Mass/Vol] 4.7 mg/dL Normal 2.5-5.0 [facility] Comment on above: Order Comment: Bleed , altereed mental status Performed By: #### 4 1000, 59733, 16573 ####[facility] [place] [address], [facility] POC GLUCOSE LABon 04-13-2022 Glucose [Mass/Vol] 119 mg/dL High 70-100 The [facility] Comment on above: Performed By: #### 8 5499 #### [facility] [address] [place] [address], [place] Glucose [Mass/Vol] 116 mg/dL High 70-100 The [facility] Comment on above: Performed By: #### 8 5499 #### [facility] [address] [place] [address], [place] Glucose [Mass/Vol] 129 mg/dL High 70-100 The [facility] Comment on above: Performed By: #### 8 5499 #### [facility] [address] [place] [address], [place] Glucose [Mass/Vol] 109 mg/dL High 70-100 The [facility] Comment on above: Performed By: #### 8 5499 ####[facility] [place] [address], [place] POTASSIUM BLOODon 04-13-2022 Potassium [Moles/Vol] 4.7 mmol/L Normal 3.5-5.1 [facility] Comment on above: Order Comment: No: D o not add to previous draw Performed By: #### 2 2706 #### [facility] [address] [place] [address], [place] BASIC METABOLIC PANELon 03-19 Calcium [Mass/Vol] 8.5 mg/dL Low 8.6-10.3 The [facility] Comment on above: Order Comment: Bleed , altereed mental status Performed By: #### 1 0070, 58215, 48230 ####[facility] [place] [address], [facility] Chloride [Moles/Vol] 106 mmol/L Normal 98-107 [facility] Comment on above: Order Comment: Bleed , altereed mental status Performed By: #### 1 0070, 86393, 51084 ####[facility] [place] [address], [facility] CO2 [Moles/Vol] 24 mmol/L Normal 21-[address] [facility] Comment on above: Order Comment: Bleed , altereed mental status Performed By: #### 1 0070, 48326, 82910 ####[facility] [facility] [place] [address], [facility] Creatinine [Mass/Vol] 1.34 mg/dL High 0.60-1.20 [facility] Comment on above: Order Comment: Bleed , altereed mental status Performed By: #### 1 0070, 67447, 90829 ####[facility] [facility].[address] eGFR- 46 ml/min/1.73sq m Abnormal >60 [facility] Comment on above: Order Comment: Bleed , altereed mental status Result Comment: Calc ulation may not be valid for patients over 70 years Performed By: #### 1 0070, 89516, 89381 ####[facility] [facility] [place] [address], [facility] eGFR- non- 38 ml/min/1.73sq m Abnormal >60 [facility] Comment on above: Order Comment: Bleed , altereed mental status Result Comment: Calc ulation may not be valid for patients over 70 years Performed By: #### 1 0070, 72084, 54585 ####[facility] [place] [address], [facility] Glucose [Mass/Vol] 83 mg/dL Normal 70-100 The [facility] Comment on above: Order Comment: Bleed , altereed mental status Performed By: #### 1 0, 95434, 52915 ####[facility] [place] [address], [facility] Potassium [Moles/Vol] 4.5 mmol/L Normal 3.5-5.1 [facility] Comment on above: Order Comment: Bleed , altereed mental status Performed By: #### 1 0, 47728, 61291 ####[facility] [id number], [facility] Sodium [Moles/Vol] 137 mmol/L Normal 136-145 The [facility] Comment on above: Order Comment: Bleed , altereed mental status Performed By: #### 1 0, 28967, 64360 ####[facility] [id number], [facility] Urea nitrogen [Mass/Vol] 25 mg/dL Normal 7-25 [facility] Comment on above: Order Comment: Bleed , altereed mental status Performed By: #### 1 0, 11420, 74586 ####[facility] [place] [address], [facility] CBC COMPLETE BLOOD COUNTon - Erythrocyte distribution width (RBC) [Ratio] 19.9 % High 11.5-15.0 [facility] Comment on above: Order Comment: No: D o not add to previous draw Performed By: #### 1 8054 #### [facility] [address] [place] [address], [facility] Hematocrit (Bld) [Volume fraction] 28.9 % Low 36.0-45.0 [facility] Comment on above: Order Comment: No: D o not add to previous draw Performed By: #### 8 1549 #### [facility] [address] [place] [address], [facility] Hemoglobin (Bld) [Mass/Vol] 8.7 g/dL Low 12.0-15.0 [facility] Comment on above: Order Comment: No: D o not add to previous draw Performed By: #### 8 5499 #### [facility] [address] [place] [address], [facility] MCH (RBC) [Entitic mass] 30.1 pg Normal 27.0-33.0 [facility] Comment on above: Order Comment: No: D o not add to previous draw Performed By: #### 8 5499 #### [facility] [address] [place] [address], [facility] [facility] MCHC (RBC) [Mass/Vol] 30.1 g/dL Low 32.0-35.0 [facility] Comment on above: Order Comment: No: D o not add to previous draw Performed By: #### 8 [id number] #### [facility] [address] [place] [address], [facility] MCV (RBC) [Entitic vol] 100.0 fL High 82.0-98.0 [facility] Comment on above: Order Comment: No: D o not add to previous draw Performed By: #### 8 [id number] #### [facility] [address] [facility] [address], [facility] Nucleated RBC/100 WBC (Bld) [Ratio] 0 % Normal 0-0 [facility] Comment on above: Order Comment: No: D o not add to previous draw Performed By: #### 8 [id number] #### [facility] [address] [facility] [place] [address], [facility] PLAT CNT 186 10*3/uL Normal 150-400 [facility] Comment on above: Order Comment: No: D o not add to previous draw Performed By: #### 8 [id number] #### [facility] [address] [place] [address], [facility] RBC (Bld) [#/Vol] 2.89 10*6/uL Low 3.80-5.00 [facility] Comment on above: Order Comment: No: D o not add to previous draw Performed By: #### 8 [id number] #### [facility] [address] [place] [id number], [facility] WBC (Bld) [#/Vol] 21.99 10*3/uL High 4.00-10.60 [facility] Comment on above: Order Comment: No: D o not add to previous draw Performed By: #### 8 [id number] #### [facility] [address] [facility], [place] [address], [facility] LIVER BATTERYon 04-12-2022 Albumin [Mass/Vol] 3.0 g/dL Low 3.5-5.7 [facility] Comment on above: Order Comment: Bleed , altereed mental status Performed By: #### 1 0070, 97000, [id number] ####[facility] [place] [address], [facility] ALKALINE PHOSPH 87 IU/L Normal 34-104 [facility] Comment on above: Order Comment: Bleed , altereed mental status Performed By: #### 1 0, 00157, 21357 ####[facility] [facility].[address] ALT [Catalytic activity/Vol] 7 U/L Normal 7-52 [facility] Comment on above: Order Comment: Bleed , altereed mental status Performed By: #### 1 0070, 42275, 79827 ####[facility] [facility] [place] [address], [facility] AST [Catalytic activity/Vol] 11 U/L Low 13-39 [facility] Comment on above: Order Comment: Bleed , altereed mental status Performed By: #### 1 0070, 05443, 19327 ####[facility] Bilirubin [Mass/Vol] 0.8 mg/dL Normal 0.3-1.0 [facility] Comment on above: Order Comment: Bleed , altereed mental status Performed By: #### 1 0070, 02125, 39517 ####[facility] Bilirubin.direct [Mass/Vol] 0.2 mg/dL Normal 0.0-0.2 [facility] Comment on above: Order Comment: Bleed , altereed mental status Performed By: #### 1 0070, 42801, 56825 ####[facility] Protein [Mass/Vol] 6.0 g/dL Normal 6.0-8.3 [facility] Comment on above: Order Comment: Bleed , altereed mental status Performed By: #### 1 0070, 74726, 57854 ####[facility] [facility] [place] MAGNESIUM BLOODon 04-12-2022 Magnesium [Mass/Vol] 1.9 mg/dL Normal 1.9-2.7 [facility] Comment on above: Order Comment: Bleed , altereed mental status Performed By: #### 1 0070, 54727, 16246 ####[facility] [facility].[address] Operative Reporton Operative Report MR#: [id number] [facility] Pt. Name: María Elena Tafoya Room #: CCCI Discharge Date: Birthdate: 1940 OPERATIVE REPORT DATE OF SURGERY: 04/12/2022 SURGEON: Sharla Lizama MD Operative report: Laparoscopic cholecystectomy Location: [facility] main or Preoperative diagnosis: Gallstone pancreatitis Postoperative diagnosis: Gallstone pancreatitis Operation performed: Laparoscopic cholecystectomy Surgeon: Sharla Lizama MD [employer]: Dillon Thomas MD (resident pgy5) Estimated blood [...] Lizama MD Date Trans: 04/12/2022 05:18 P/ [id number] cc: Bennie Albright M.D. [address] [id number] [place] [facility] Operative Report MR#: [id number] [facility] Pt. Name: María Elena Tafoya Room #: [id number] Discharge Date: Birthdate: 1940 OPERATIVE REPORT DATE OF SURGERY: 04/12/2022 SURGEON: Sharla Lizama MD Operative report: Laparoscopic cholecystectomy Location: [facility] main or Preoperative diagnosis: Gallstone pancreatitis Postoperative diagnosis: Gallstone pancreatitis Operation performed: Laparoscopic cholecystectomy Surgeon: Sharla Lizama MD [employer]: Dillon Thomas MD (resident pgy5) Estimated blood [...] Lizama MD Date Trans: 04/12/2022 05:18 P/ [id number] cc: Bennie Albright M.D. [address] [address] Normal [facility] POC GLUCOSE LABon 04-12-2022 Glucose [Mass/Vol] 122 mg/dL High 70-100 The [facility] Comment on above: Performed By: #### 8 [id number] #### [facility] [address] [facility] [address], [facility] Glucose [Mass/Vol] 167 mg/dL High 70-100 [facility] Comment on above: Performed By: #### 8 5499 ####[facility] [facility] [place] [address], [facility] Glucose [Mass/Vol] 105 mg/dL High 70-100 [facility] Comment on above: Performed By: #### 3 0313 #### [facility] [address] [facility] [place] [address], [facility] Glucose [Mass/Vol] 111 mg/dL High 70-100 [facility] Comment on above: Performed By: #### 8 5499 ####[facility] [facility] [place] [address], [facility] Glucose [Mass/Vol] 109 mg/dL High 70-100 The [facility] Comment on above: Performed By: #### 3 0313 #### [facility] [address] [facility] [address], [facility] POC SARS COV2 IDon 2 SARS-CoV-2 (COVID-19) RNA MATTHEW+probe Ql (Unsp spec) Negative Normal NEGATIVE [facility] Comment on above: Result Comment: ID N [...] Accreditation. Performed By: #### 8 [id number] #### [facility] [address] [facility] [place] [address], [facility] BASIC METABOLIC PANELon 03-19 Calcium [Mass/Vol] 8.3 mg/dL Low 8.6-10.3 [facility] Comment on above: Order Comment: No: D o not add to previous draw Performed By: #### 8 5499 #### [facility] [address] [place] [address], [place] Chloride [Moles/Vol] 106 mmol/L Normal 98-107 [facility] Comment on above: Order Comment: No: D o not add to previous draw Performed By: #### 8 5499 #### [facility] [address] [place] [address], [place] CO2 [Moles/Vol] 23 mmol/L Normal 21-[address] [facility] Comment on above: Order Comment: No: D o not add to previous draw Performed By: #### 8 5499 #### [facility] [address] [place] [address], [facility] Creatinine [Mass/Vol] 1.21 mg/dL High 0.60-1.20 [facility] Comment on above: Order Comment: No: D o not add to previous draw Performed By: #### 8 5499 #### [facility] [address] [place] [address], [facility] eGFR- 51 ml/min/1.73sq m Abnormal >60 [facility] Comment on above: Order Comment: No: D o not add to previous draw Result Comment: Calc ulation may not be valid for patients over 70 years Performed By: #### 8 5499 #### [facility] [address] [place] [address], [facility] eGFR- non- 42 ml/min/1.73sq m Abnormal >60 [facility] Comment on above: Order Comment: No: D o not add to previous draw Result Comment: Calc ulation may not be valid for patients over 70 years Performed By: #### 8 5499 #### [facility] [address] [place] [address], [place] Glucose [Mass/Vol] 91 mg/dL Normal 70-100 [facility] Comment on above: Order Comment: No: D o not add to previous draw Performed By: #### 8 5499 #### [facility] [address] [place] [address], [facility] Potassium [Moles/Vol] 4.5 mmol/L Normal 3.5-5.1 [facility] Comment on above: Order Comment: No: D o not add to previous draw Performed By: #### 8 5499 #### [facility] [address] [place] [address], [place] Sodium [Moles/Vol] 138 mmol/L Normal 136-145 [facility] Comment on above: Order Comment: No: D o not add to previous draw Performed By: #### 8 5499 #### [facility] [address] [place] [address], [facility] Urea nitrogen [Mass/Vol] 22 mg/dL Normal 7-25 [facility] Comment on above: Order Comment: No: D o not add to previous draw Performed By: #### 8 5499 #### [facility] [address] [place] [address], [facility] CBC COMPLETE BLOOD COUNTon 0 - Erythrocyte distribution width (RBC) [Ratio] 19.6 % High 11.5-15.0 [facility] Comment on above: Order Comment: No: D o not add to previous draw Performed By: #### 5 0608 #### [facility] [address] [place] [address], [facility] Hematocrit (Bld) [Volume fraction] 29.5 % Low 36.0-45.0 [facility] Comment on above: Order Comment: No: D o not add to previous draw Performed By: #### 5 0608 #### [facility] [address] [place] [address], [facility] Hemoglobin (Bld) [Mass/Vol] 9.2 g/dL Low 12.0-15.0 [facility] Comment on above: Order Comment: No: D o not add to previous draw Performed By: #### 5 0608 #### [facility] [address] [place] [address], [facility] MCH (RBC) [Entitic mass] 31.0 pg Normal 27.0-33.0 [facility] Comment on above: Order Comment: No: D o not add to previous draw Performed By: #### 5 0608 #### [facility] [address] [place] [id number], [facility] MCHC (RBC) [Mass/Vol] 31.2 g/dL Low 32.0-35.0 [facility] Comment on above: Order Comment: No: D o not add to previous draw Performed By: #### 5 0608 #### [facility] [address] [facility] [place] [address], [facility] MCV (RBC) [Entitic vol] 99.3 fL High 82.0-98.0 [facility] Comment on above: Order Comment: No: D o not add to previous draw Performed By: #### 5 0608 #### [facility] [address] [facility] [place] [address], [facility] Nucleated RBC/100 WBC (Bld) [Ratio] 0 % Normal 0-0 [facility] Comment on above: Order Comment: No: D o not add to previous draw Performed By: #### 5 0608 #### [facility] [address] [facility] [place] [address], [facility] PLAT CNT 277 10*3/uL Normal 150-400 [facility] Comment on above: Order Comment: No: D o not add to previous draw Performed By: #### 5 0608 #### [facility] [address] [facility] [place] [address], [facility] RBC (Bld) [#/Vol] 2.97 10*6/uL Low 3.80-5.00 [facility] Comment on above: Order Comment: No: D o not add to previous draw Performed By: #### 5 0608 #### [facility] [address] [place] [address], [place] WBC (Bld) [#/Vol] 20.81 10*3/uL High 4.00-10.60 [facility] Comment on above: Order Comment: No: D o not add to previous draw Performed By: #### 5 0608 #### [facility] [address] [place] [address], [place] LIVER BATTERYon 04-11-2022 Albumin [Mass/Vol] 3.1 g/dL Low 3.5-5.7 [facility] Comment on above: Order Comment: No: D o not add to previous draw Performed By: #### 8 [id number] #### [facility] [address] [place] [address], [place] ALKALINE PHOSPH 92 IU/L Normal 34-104 [facility] Comment on above: Order Comment: No: D o not add to previous draw Performed By: #### 8 5499 #### [facility] [address] [place] [address], [place] ALT [Catalytic activity/Vol] 7 U/L Normal 7-52 [facility] Comment on above: Order Comment: No: D o not add to previous draw Performed By: #### 8 5499 #### [facility] [address] [place] [address], [place] AST [Catalytic activity/Vol] 9 U/L Low 13-39 [facility] Comment on above: Order Comment: No: D o not add to previous draw Performed By: #### 8 5499 #### [facility] [address] [place] [address], [place] Bilirubin [Mass/Vol] 0.8 mg/dL Normal 0.3-1.0 [facility] Comment on above: Order Comment: No: D o not add to previous draw Performed By: #### 8 5499 #### [facility] [address] [place] [address], [place] Bilirubin.direct [Mass/Vol] 0.3 mg/dL High 0.0-0.2 [facility] Comment on above: Order Comment: No: D o not add to previous draw Performed By: #### 8 5499 #### [facility] [address] [place] [address], [place] Protein [Mass/Vol] 5.7 g/dL Low 6.0-8.3 [facility] Comment on above: Order Comment: No: D o not add to previous draw Performed By: #### 8 5499 #### [facility] [address] [place] [address], [place] MAGNESIUM BLOODon 04-11-2022 Magnesium [Mass/Vol] 1.7 mg/dL Low 1.9-2.7 [facility] Comment on above: Order Comment: No: D o not add to previous draw Performed By: #### 8 5499 #### [facility] [address] [place] [address], [place] POC GLUCOSE LABon 04-11-2022 Glucose [Mass/Vol] 143 mg/dL High 70-100 [facility] Comment on above: Performed By: #### 8 5499 #### [facility] [address] [place] [address], [place] Glucose [Mass/Vol] 142 mg/dL High 70-100 [facility] Comment on above: Performed By: #### 8 5499 ####[facility] [place] [address], [place] Glucose [Mass/Vol] 125 mg/dL High 70-100 [facility] Comment on above: Performed By: #### 8 5499 #### [facility] [address] [place] [address], [place] Glucose [Mass/Vol] 113 mg/dL High 70-100 [facility] Comment on above: Performed By: #### 3 0313 #### [facility] [address] [place] [address], [place] URINE SMITH STAIN/EOSon EOSINOPHIL SMEAR NONE SEEN Normal NSN The [facility] Comment on above: Order Comment: No: D o not add to previous draw [place] Normal [facility] Comment on above: Order Comment: No: D o not add to previous draw Result Comment: Test Performed by [facility] [place] [address] - Released 04/11/2022 22:02 BASIC METABOLIC PANELon 03-19 Calcium [Mass/Vol] 8.3 mg/dL Low 8.6-10.3 The [facility] Comment on above: Order Comment: No: D o not add to previous draw Performed By: #### 8 5499 #### [facility] [address] [place] [address], [place] Chloride [Moles/Vol] 107 mmol/L Normal 98-107 [facility] Comment on above: Order Comment: No: D o not add to previous draw Performed By: #### 8 5499 #### [facility] [address] [place] [address], [place] CO2 [Moles/Vol] 23 mmol/L Normal 21-31 [facility] Comment on above: Order Comment: No: D o not add to previous draw Performed By: #### 8 5499 #### [facility] [address] [place] [address], [place] Creatinine [Mass/Vol] 1.40 mg/dL High 0.60-1.20 [facility] Comment on above: Order Comment: No: D o not add to previous draw Performed By: #### 8 5499 #### [facility] [address] [place] [address], [place] eGFR- 44 ml/min/1.73sq m Abnormal >60 [facility] Comment on above: Order Comment: No: D o not add to previous draw Result Comment: Calc ulation may not be valid for patients over 70 years Performed By: #### 8 5499 #### [facility] [address] [place] [address], [place] eGFR- non- 36 ml/min/1.73sq m Abnormal >60 [facility] Comment on above: Order Comment: No: D o not add to previous draw Result Comment: Calc ulation may not be valid for patients over 70 years Performed By: #### 8 5499 #### [facility] [address] [place] [address], [place] Glucose [Mass/Vol] 101 mg/dL High 70-100 The [facility] Comment on above: Order Comment: No: D o not add to previous draw Performed By: #### 8 5499 #### [facility] [address] [place] [address], [place] Potassium [Moles/Vol] 4.1 mmol/L Normal 3.5-5.1 [facility] Comment on above: Order Comment: No: D o not add to previous draw Performed By: #### 8 5499 #### [facility] [address] [place] [address], [place] Sodium [Moles/Vol] 138 mmol/L Normal 136-145 [facility] Comment on above: Order Comment: No: D o not add to previous draw Performed By: #### 8 5499 #### [facility] [address] [place] [address], [place] Urea nitrogen [Mass/Vol] 25 mg/dL Normal 7-25 [facility] Comment on above: Order Comment: No: D o not add to previous draw Performed By: #### 8 5499 #### [facility] [address] [place] [address], [place] CBC COMPLETE BLOOD COUNTon 0 - Erythrocyte distribution width (RBC) [Ratio] 19.9 % High 11.5-15.0 [facility] Comment on above: Order Comment: No: D o not add to previous draw Performed By: #### 5 0608 #### [facility] [address] [place] [id number], [facility] Hematocrit (Bld) [Volume fraction] 29.1 % Low 36.0-45.0 [facility] Comment on above: Order Comment: No: D o not add to previous draw Performed By: #### 5 0608 #### [facility] [address] [place] [id number], [facility] Hemoglobin (Bld) [Mass/Vol] 9.1 g/dL Low 12.0-15.0 [facility] Comment on above: Order Comment: No: D o not add to previous draw Performed By: #### 5 0608 #### [facility] [address] [place] [id number], [facility] MCH (RBC) [Entitic mass] 30.6 pg Normal 27.0-33.0 [facility] Comment on above: Order Comment: No: D o not add to previous draw Performed By: #### 5 0608 #### [facility] [address] [place] [address], [facility] MCHC (RBC) [Mass/Vol] 31.3 g/dL Low 32.0-35.0 [facility] Comment on above: Order Comment: No: D o not add to previous draw Performed By: #### 5 0608 #### [facility] [address] [place] [address], [facility] MCV (RBC) [Entitic vol] 98.0 fL Normal 82.0-98.0 [facility] Comment on above: Order Comment: No: D o not add to previous draw Performed By: #### 5 0608 #### [facility] [address] [place] [id number], [facility] Nucleated RBC/100 WBC (Bld) [Ratio] 0 % Normal 0-0 [facility] Comment on above: Order Comment: No: D o not add to previous draw Performed By: #### 5 0608 #### [facility] [address] [place] [id number], [facility] PLAT CNT 281 10*3/uL Normal 150-400 [facility] Comment on above: Order Comment: No: D o not add to previous draw Performed By: #### 5 0608 #### [facility] [address] [place] [id number], [facility] RBC (Bld) [#/Vol] 2.97 10*6/uL Low 3.80-5.00 [facility] Comment on above: Order Comment: No: D o not add to previous draw Performed By: #### 5 0608 #### [facility] [address] [place] [address], [facility] WBC (Bld) [#/Vol] 19.64 10*3/uL High 4.00-10.60 [facility] Comment on above: Order Comment: No: D o not add to previous draw Performed By: #### 5 0608 #### [facility] [address] [place] [id number], [facility] MAGNESIUM BLOODon 04-10-2022 Magnesium [Mass/Vol] 1.6 mg/dL Low 1.9-2.7 [facility] Comment on above: Order Comment: No: D o not add to previous draw Performed By: #### 8 [id number] #### [facility] [address] [place] [address], [facility] POC GLUCOSE LABon 04-10-2022 Glucose [Mass/Vol] 154 mg/dL High 70-100 The [facility] Comment on above: Performed By: #### 8 [id number] #### [facility] [address] [place] [address], [place] Glucose [Mass/Vol] 120 mg/dL High 70-100 [facility] Comment on above: Performed By: #### 3 0313 #### [facility] [address] [place] [address], [place] Glucose [Mass/Vol] 131 mg/dL High 70-100 [facility] Comment on above: Performed By: #### 8 5499 ####[facility] [place] [address], [place] Glucose [Mass/Vol] 114 mg/dL High 70-100 [facility] Comment on above: Performed By: #### 8 5499 #### [facility] [address] [place] [address], [place] BASIC METABOLIC PANELon 05-2 Calcium [Mass/Vol] 8.7 mg/dL Normal 8.6-10.3 [facility] Comment on above: Order Comment: No: D o not add to previous draw Performed By: #### 8 [id number] #### [facility] [address] [place] [address], [place] Chloride [Moles/Vol] 104 mmol/L Normal 98-107 [facility] Comment on above: Order Comment: No: D o not add to previous draw Performed By: #### 8 [id number] #### [facility] [address] [place] [address], [place] CO2 [Moles/Vol] 24 mmol/L Normal 21-31 [facility] Comment on above: Order Comment: No: D o not add to previous draw Performed By: #### 8 [id number] #### [facility] [address] [place] [address], [place] Creatinine [Mass/Vol] 1.29 mg/dL High 0.60-1.20 [facility] Comment on above: Order Comment: No: D o not add to previous draw Performed By: #### 8 [id number] #### [facility] [address] [place] [address], [place] eGFR- 48 ml/min/1.73sq m Abnormal >60 [facility] Comment on above: Order Comment: No: D o not add to previous draw Result Comment: Calc ulation may not be valid for patients over 70 years Performed By: #### 8 [id number] #### [facility] [address] [place] [address], [place] eGFR- non- 39 ml/min/1.73sq m Abnormal >60 [facility] Comment on above: Order Comment: No: D o not add to previous draw Result Comment: Calc ulation may not be valid for patients over 70 years Performed By: #### 8 [id number] #### [facility] [address] [place] [address], [place] Glucose [Mass/Vol] 90 mg/dL Normal 70-100 [facility] Comment on above: Order Comment: No: D o not add to previous draw Performed By: #### 8 [id number] #### [facility] [address] [place] [address], [place] Potassium [Moles/Vol] 4.3 mmol/L Normal 3.5-5.1 [facility] Comment on above: Order Comment: No: D o not add to previous draw Performed By: #### 8 [id number] #### [facility] [address] [place] [address], [place] Sodium [Moles/Vol] 137 mmol/L Normal 136-145 [facility] Comment on above: Order Comment: No: D o not add to previous draw Performed By: #### 8 [id number] #### [facility] [address] [place] [address], [place] Urea nitrogen [Mass/Vol] 16 mg/dL Normal 7-25 [facility] Comment on above: Order Comment: No: D o not add to previous draw Performed By: #### 8 [id number] #### [facility] [address] CBC COMPLETE BLOOD COUNTon 0 04-09-2022 Erythrocyte distribution width (RBC) [Ratio] 19.4 % High 11.5-15.0 [facility] Comment on above: Order Comment: No: D o not add to previous draw Performed By: #### 8 [id number] #### [facility] [address] [place] [address], [facility] Hematocrit (Bld) [Volume fraction] 29.9 % Low 36.0-45.0 [facility] Comment on above: Order Comment: No: D o not add to previous draw Performed By: #### 8 [id number] #### [facility] [address] [place] [address], [facility] Hemoglobin (Bld) [Mass/Vol] 9.4 g/dL Low 12.0-15.0 [facility] Comment on above: Order Comment: No: D o not add to previous draw Performed By: #### 8 [id number] #### [facility] [address] [place] [address], [facility] MCH (RBC) [Entitic mass] 30.4 pg Normal 27.0-33.0 [facility] Comment on above: Order Comment: No: D o not add to previous draw Performed By: #### 8 [id number] #### [facility] [address] [place] [address], [facility] MCHC (RBC) [Mass/Vol] 31.4 g/dL Low 32.0-35.0 [facility] Comment on above: Order Comment: No: D o not add to previous draw Performed By: #### 8 [id number] #### [facility] [address] [place] [id number], [facility] MCV (RBC) [Entitic vol] 96.8 fL Normal 82.0-98.0 [facility] Comment on above: Order Comment: No: D o not add to previous draw Performed By: #### 8 [id number] #### [facility] [address] [facility] [place] [address], [facility] Nucleated RBC/100 WBC (Bld) [Ratio] 0 % Normal 0-0 [facility] Comment on above: Order Comment: No: D o not add to previous draw Performed By: #### 8 [id number] #### [facility] [address] [place] [address], [facility] PLAT CNT 325 10*3/uL Normal 150-400 [facility] Comment on above: Order Comment: No: D o not add to previous draw Performed By: #### 8 [id number] #### [facility] [address] [place] [address], [facility] RBC (Bld) [#/Vol] 3.09 10*6/uL Low 3.80-5.00 [facility] Comment on above: Order Comment: No: D o not add to previous draw Performed By: #### 8 [id number] #### [facility] [address] [place] [address], [facility] WBC (Bld) [#/Vol] 21.91 10*3/uL High 4.00-10.60 [facility] Comment on above: Order Comment: No: D o not add to previous draw Performed By: #### 8 [id number] #### [facility] [address] [place] [address], [facility] CREATININE URINE RANDOMon Creatinine (U) [Mass/Vol] 40.0 mg/dL Normal [facility] Comment on above: Order Comment: The A ptima SARS-CoV-2 assay is a nucleic acid amplification test intended for the qualitative detection of RNA from SARS-CoV-2 isolated and purified from nasopharyngeal (WILDLIFE CONTROL OPERATOR),oropharyngeal (OP), nasal swab, sputum, and bronchoalveolar lavage (BAL) specimens from patients with signs and symptoms of infection who are suspected of COVID-19. Results are for the identification of SARS-CoV-2 RNA. The SARS-CoV-2 RNA is generally detectable during the acute phase of infection. The Aptima SARS-CoV-2 Assay on the [place] [employer] [place] [employer] system is intended for use by laboratory personnel specifically instructed and trained in the operation of the [place] [employer] [place] [employer] system. The Aptima SARS-CoV-2 assay is [...] specimens Performed By: #### 3 [id number] #### [facility] [address] [place] [address], [facility] MAGNESIUM BLOODon 04-09-2022 Magnesium [Mass/Vol] 1.9 mg/dL Normal 1.9-2.7 [facility] Comment on above: Order Comment: No: D o not add to previous draw Performed By: #### 8 [id number] #### [facility] [address] [place] [address], [facility] OSMOLALITY URINEon OSMOLALITY 317 mOsm/kg Normal 50-1400 [facility] Comment on above: Order Comment: The A ptima SARS-CoV-2 assay is a nucleic acid amplification test intended for the qualitative detection of RNA from SARS-CoV-2 isolated and purified from nasopharyngeal (WILDLIFE CONTROL OPERATOR),oropharyngeal (OP), nasal swab, sputum, and bronchoalveolar lavage (BAL) specimens from patients with signs and symptoms of infection who are suspected of COVID-19. Results are for the identification of SARS-CoV-2 RNA. The SARS-CoV-2 RNA is generally detectable during the acute phase of infection. The Aptima SARS-CoV-2 Assay on the [place] [employer] [place] [employer] system is intended for use by laboratory personnel specifically instructed and trained in the operation of the [place] [employer] [place] [employer] system. The Aptima SARS-CoV-2 assay is [...] information. Performed By: #### 3 [id number] #### [facility] [address] [place] [address], [facility] POC GLUCOSE LABon 04-09-2022 Glucose [Mass/Vol] 159 mg/dL High 70-100 [facility] Comment on above: Performed By: #### 8 [id number] #### [facility] [address] [place] [address], [place] Glucose [Mass/Vol] 141 mg/dL High 70-100 The [facility] Comment on above: Performed By: #### 8 [id number] #### [facility] [address] [place] [address], [place] Glucose [Mass/Vol] 337 mg/dL High 70-100 [facility] Comment on above: Performed By: #### 8 [id number] #### [facility] [address] [place] [address], [place] Glucose [Mass/Vol] 113 mg/dL High 70-100 [facility] Comment on above: Order Comment: NOTE: Result Checked Performed By: #### 3 0313 #### [facility] [address] [place] [address], [place] SODIUM URINE RANDOMon 2021 Sodium (U) [Moles/Vol] 105 mmol/L Normal [facility] Comment on above: Order Comment: The A ptima SARS-CoV-2 assay is a nucleic acid amplification test intended for the qualitative detection of RNA from SARS-CoV-2 isolated and purified from nasopharyngeal (WILDLIFE CONTROL OPERATOR),oropharyngeal (OP), nasal swab, sputum, and bronchoalveolar lavage (BAL) specimens from patients with signs and symptoms of infection who are suspected of COVID-19. Results are for the identification of SARS-CoV-2 RNA. The SARS-CoV-2 RNA is generally detectable during the acute phase of infection. The Aptima SARS-CoV-2 Assay on the [place] [employer] [place] [employer] system is intended for use by laboratory personnel specifically instructed and trained in the operation of the [place] [employer] [place] [employer] system. The Aptima SARS-CoV-2 assay is [...] specimens Performed By: #### 3 [id number] #### [facility] [address] UA,MICROSCOPIC REQUIREDon Appearance (U) CLEAR Normal CLEAR [facility] Comment on above: Order Comment: No: D o not add to previous draw Performed By: #### 8 [id number] #### [facility] [address] [facility] [address], [facility] Bilirubin Ql (U) Negative Normal NEGATIVE The [facility] Comment on above: Order Comment: No: D o not add to previous draw Performed By: #### 8 [id number] #### [facility] [address] [facility] [address], [facility] BUDDING YEAST FEW Abnormal NONE SEEN The [facility] Comment on above: Order Comment: No: D o not add to previous draw Performed By: #### 8 [id number] #### [facility] [address] [place] [address], [facility] Color (U) YELLOW Normal YELLOW [facility] Comment on above: Order Comment: No: D o not add to previous draw Performed By: #### 8 [id number] #### [facility] [address] [place] [address], [facility] EPIS NONE SEEN Normal FEW,OCC,NONE SEEN [facility] Comment on above: Order Comment: No: D o not add to previous draw Performed By: #### 8 [id number] #### [facility] [address] [place] [address], [place] Glucose Ql (U) Negative Normal NEGATIVE [facility] Comment on above: Order Comment: No: D o not add to previous draw Performed By: #### 8 [id number] #### [facility] [address] [place] [address], [facility] Hemoglobin Ql (U) SMALL Abnormal NEGATIVE The [facility] Comment on above: Order Comment: No: D o not add to previous draw Performed By: #### 8 [id number] #### [facility] [address] [place] [address], [facility] KETONE Negative Normal NEGATIVE [facility] Comment on above: Order Comment: No: D o not add to previous draw Performed By: #### 8 [id number] #### [facility] [address] [place] [address], [place] LEUK LUIS ANTONIO Negative Normal NEGATIVE [facility] Comment on above: Order Comment: No: D o not add to previous draw Performed By: #### 8 [id number] #### [facility] [address] [place] [address], [place] Nitrite Ql (U) Negative Normal NEGATIVE [facility] Comment on above: Order Comment: No: D o not add to previous draw Performed By: #### 8 [id number] #### [facility] [address] [place] [address], [place] pH (U) 7.0 [pH] Normal 5.0-8.0 [facility] Comment on above: Order Comment: No: D o not add to previous draw Performed By: #### 8 [id number] #### [facility] [address] [place] [address], [facility] Protein Ql (U) Negative Normal NEGATIVE [facility] Comment on above: Order Comment: No: D o not add to previous draw Performed By: #### 8 [id number] #### [facility] [address] [place] [address], [facility] RBC 0-2 Abnormal NONE SEEN [facility] Comment on above: Order Comment: No: D o not add to previous draw Performed By: #### 8 [id number] #### [facility] [address] [place] [address], [facility] SPEC GRAV 1.008 Low 1.015-1.020 [facility] Comment on above: Order Comment: No: D o not add to previous draw Performed By: #### 8 [id number] #### [facility] [address] [facility] [place] [address], [facility] WBC UA NONE SEEN Normal NONE SEEN [facility] Comment on above: Order Comment: No: D o not add to previous draw Performed By: #### 8 [id number] #### [facility] [address] [facility]. [address] *BLOOD CULTUREon 04-08-2022 *BLOOD CULTURE Clinical Report: (D) Specimen: BLOOD CULTURE Collected: 04/08/2022 18:50 Status: Final Last Updated: 04/14/2022 06:21 CULT RES (Final) No Growth Day 5 Normal [facility] Comment on above: Performed By: #### 3 0313 #### [facility] [address] [facility]. [address] *BLOOD CULTURE Clinical Report: (D) Specimen: BLOOD CULTURE Collected: 04/08/2022 15:33 Status: Final Last Updated: 04/14/2022 06:21 (1) Per denisha Fernandez.labs to be drawn at three CULT RES (Final) No Growth Day 5 Normal [facility] Comment on above: Order Comment: No: D o not add to previous draw Performed By: #### 5 [id number] #### [facility] [address] [place] [address], [facility] BASIC METABOLIC PANELon 05-2 Calcium [Mass/Vol] 8.9 mg/dL Normal 8.6-10.3 [facility] Comment on above: Order Comment: No: D o not add to previous draw Performed By: #### 2 2706 #### [facility] [address] [place] [address], [place] Chloride [Moles/Vol] 105 mmol/L Normal 98-107 [facility] Comment on above: Order Comment: No: D o not add to previous draw Performed By: #### 2 2706 #### [facility] [address] [place] [address], [place] CO2 [Moles/Vol] 24 mmol/L Normal 21-[address] [facility] Comment on above: Order Comment: No: D o not add to previous draw Performed By: #### 2 2706 #### [facility] [address] [place] [address], [facility] Creatinine [Mass/Vol] 1.03 mg/dL Normal 0.60-1.20 [facility] Comment on above: Order Comment: No: D o not add to previous draw Performed By: #### 2 2706 #### [facility] [address] [place] [address], [place] eGFR- non- 51 ml/min/1.73sq m Abnormal >60 [facility] Comment on above: Order Comment: No: D o not add to previous draw Result Comment: Calc ulation may not be valid for patients over 70 years Performed By: #### 2 2706 #### [facility] [address] [place] [address], [place] GFR/1.73 sq M.predicted among blacks MDRD (S/P/Bld) [Vol rate/Area] mL/min/{1.73_m2} Normal >60 [facility] Comment on above: Order Comment: No: D o not add to previous draw Result Comment: Calc ulation may not be valid for patients over 70 years Performed By: #### 2 2706 #### [facility] [address] [place] [address], [place] Glucose [Mass/Vol] 113 mg/dL High 70-100 [facility] Comment on above: Order Comment: No: D o not add to previous draw Performed By: #### 2 2706 #### [facility] [address] [place] [address], [facility] Potassium [Moles/Vol] 4.1 mmol/L Normal 3.5-5.1 [facility] Comment on above: Order Comment: No: D o not add to previous draw Performed By: #### 2 2706 #### [facility] [address] [place] [address], [place] Sodium [Moles/Vol] 136 mmol/L Normal 136-145 [facility] Comment on above: Order Comment: No: D o not add to previous draw Performed By: #### 2 2706 #### [facility] [address] [place] [address], [facility] Urea nitrogen [Mass/Vol] 11 mg/dL Normal 7-25 [facility] Comment on above: Order Comment: No: D o not add to previous draw Performed By: #### 2 2706 #### [facility] [address] [place] [address], [place] CBC W/DIFFon 04-08-2022 ABS IMM GRANS 0.4 10*3/uL High 0.0-0.2 [facility] Comment on above: Performed By: #### 8 [id number] #### [facility] [address] [place] [address], [place] ABS NEUTROPHILS 24.5 10*3/uL High 1.6-7.6 The [facility] [place] Comment on above: Performed By: #### 8 [id number] #### [facility] [address] [facility] [place] [address], [facility] ANISO Moderate Normal [facility] Comment on above: Performed By: #### 8 [id number] #### [facility] [address] [place] [address], [facility] Basophils (Bld) [#/Vol] 0.2 10*3/uL Normal 0.0-0.2 [facility] Comment on above: Performed By: #### 8 [id number] #### [facility] [address] [facility] [place] [address], [facility] Basophils/100 WBC (Bld) 0.6 % Normal 0.0-1.0 [facility] Comment on above: Performed By: #### 8 [id number] #### [facility] [address] [facility] [address], [facility] Eosinophils (Bld) [#/Vol] 0.0 10*3/uL Normal 0.0-0.5 [facility] Comment on above: Performed By: #### 8 [id number] #### [facility] [address] [facility] [place] [address], [facility] Eosinophils/100 WBC (Bld) 0.1 % Normal 0.0-6.0 [facility] Comment on above: Performed By: #### 8 [id number] #### [facility] [address] Erythrocyte distribution width (RBC) [Ratio] 19.1 % High 11.5-15.0 [facility] Comment on above: Performed By: #### 8 [id number] #### [facility] [address] [place] [address], [facility] Hematocrit (Bld) [Volume fraction] 32.3 % Low 36.0-45.0 [facility] Comment on above: Performed By: #### 8 [id number] #### [facility] [address] [facility] [place] [address], [facility] Hemoglobin (Bld) [Mass/Vol] 10.1 g/dL Low 12.0-15.0 [facility] Comment on above: Performed By: #### 8 [id number] #### [facility] [address] [facility] [place] [address], [facility] IMMATURE GRANS 1.5 % High 0.0-1.0 [facility] Comment on above: Performed By: #### 8 [id number] #### [facility] [address] [facility] [place] [address], [facility] Lymphocytes (Bld) [#/Vol] 1.5 10*3/uL Normal 1.2-4.0 [facility] Comment on above: Performed By: #### 8 [id number] #### [facility] [address] [facility] [place] [address], [facility] Lymphocytes/100 WBC (Bld) 5.5 % Low 20.0-45.0 [facility] Comment on above: Performed By: #### 8 [id number] #### [facility] [address] [facility] [address] MCH (RBC) [Entitic mass] 30.4 pg Normal 27.0-33.0 [facility] Comment on above: Performed By: #### 8 [id number] #### [facility] [address] [facility] [place] [address], [facility] MCHC (RBC) [Mass/Vol] 31.3 g/dL Low 32.0-35.0 [facility] Comment on above: Performed By: #### 8 [id number] #### [facility] [address] [place] [address], [facility] MCV (RBC) [Entitic vol] 97.3 fL Normal 82.0-98.0 [facility] Comment on above: Performed By: #### 8 [id number] #### [facility] [address] [facility] [place] [address], [facility] Monocytes (Bld) [#/Vol] 0.6 10*3/uL Normal 0.1-1.0 [facility] Comment on above: Performed By: #### 8 [id number] #### [facility] [address] [facility]. [address] MONOS 2.1 % Low 5.0-12.0 [facility] Comment on above: Performed By: #### 8 [id number] #### [facility] [address] Neutrophils/100 WBC (Bld) 90.2 % High 40.0-72.0 [facility] Comment on above: Performed By: #### 8 [id number] #### [facility] [address] [facility]. [address] Nucleated RBC/100 WBC (Bld) [Ratio] 0 % Normal 0-0 [facility] Comment on above: Performed By: #### 8 [id number] #### [facility] [address] [facility] [place] [address], [facility] PLAT CNT 321 10*3/uL Normal 150-400 [facility] Comment on above: Performed By: #### 8 [id number] #### [facility] [address] [facility]. [address] POIK Slight Normal [facility] Comment on above: Performed By: #### 8 [id number] #### [facility] [address] POLY Slight Normal [facility] Comment on above: Performed By: #### 8 [id number] #### [facility] [address] [facility] [place] [address], [facility] RBC (Bld) [#/Vol] 3.32 10*6/uL Low 3.80-5.00 [facility] Comment on above: Performed By: #### 8 [id number] #### [facility] [address] [place] [address], [facility] WBC (Bld) [#/Vol] 27.12 10*3/uL High 4.00-10.60 [facility] Comment on above: Performed By: #### 8 [id number] #### [facility] [address] [place] [address], [place] MAGNESIUM BLOODon 04-08-2022 Magnesium [Mass/Vol] 1.4 mg/dL Low 1.9-2.7 [facility] Comment on above: Order Comment: No: D o not add to previous draw Performed By: #### 2 2706 #### [facility] [address] [place] [address], [place] POC GLUCOSE LABon 04-08-2022 Glucose [Mass/Vol] 129 mg/dL High 70-100 The [facility] Comment on above: Performed By: #### 8 [id number] #### [facility] [address] [place] [address], [place] Glucose [Mass/Vol] 130 mg/dL High 70-100 [facility] Comment on above: Performed By: #### 5 0608 #### [facility] [address] [place] [address], [place] Glucose [Mass/Vol] 132 mg/dL High 70-100 [facility] Comment on above: Performed By: #### 8 [id number] #### [facility] [address] [place] [address], [place] Glucose [Mass/Vol] 129 mg/dL High 70-100 [facility] Comment on above: Performed By: #### 8 [id number] #### [facility] [address] [place] [address], [place] BASIC METABOLIC PANELon 05-2 Calcium [Mass/Vol] 7.8 mg/dL Low 8.6-10.3 [facility] Comment on above: Order Comment: No: D o not add to previous draw Performed By: #### 8 [id number] #### [facility] [address] [place] [address], [place] Chloride [Moles/Vol] 107 mmol/L Normal 98-107 [facility] Comment on above: Order Comment: No: D o not add to previous draw Performed By: #### 8 [id number] #### [facility] [address] [place] [address], [place] CO2 [Moles/Vol] 26 mmol/L Normal 21-31 The [facility] Comment on above: Order Comment: No: D o not add to previous draw Performed By: #### 8 [id number] #### [facility] [address] [place] [address], [facility] Creatinine [Mass/Vol] 1.14 mg/dL Normal 0.60-1.20 [facility] Comment on above: Order Comment: No: D o not add to previous draw Performed By: #### 8 [id number] #### [facility] [address] [place] [address], [facility] eGFR- 55 ml/min/1.73sq m Abnormal >60 [facility] Comment on above: Order Comment: No: D o not add to previous draw Result Comment: Calc ulation may not be valid for patients over 70 years Performed By: #### 8 [id number] #### [facility] [address] [place] [address], [facility] eGFR- non- 45 ml/min/1.73sq m Abnormal >60 [facility] Comment on above: Order Comment: No: D o not add to previous draw Result Comment: Calc ulation may not be valid for patients over 70 years Performed By: #### 8 [id number] #### [facility] [address] [place] [address], [place] Glucose [Mass/Vol] 96 mg/dL Normal 70-100 The [facility] Comment on above: Order Comment: No: D o not add to previous draw Performed By: #### 8 [id number] #### [facility] [address] [place] [address], [place] Potassium [Moles/Vol] 4.0 mmol/L Normal 3.5-5.1 [facility] Comment on above: Order Comment: No: D o not add to previous draw Performed By: #### 8 [id number] #### [facility] [address] [place] [address], [place] Sodium [Moles/Vol] 139 mmol/L Normal 136-145 [facility] Comment on above: Order Comment: No: D o not add to previous draw Performed By: #### 8 [id number] #### [facility] [address] [place] [address], [place] Urea nitrogen [Mass/Vol] 13 mg/dL Normal 7-25 [facility] Comment on above: Order Comment: No: D o not add to previous draw Performed By: #### 8 [id number] #### [facility] [address] [place] [address], [place] CBC COMPLETE BLOOD COUNTon 0 - Erythrocyte distribution width (RBC) [Ratio] 19.3 % High 11.5-15.0 [facility] Comment on above: Order Comment: No: D o not add to previous draw Performed By: #### 5 [id number] #### [facility] [address] [place] [address], [place] Hematocrit (Bld) [Volume fraction] 27.9 % Low 36.0-45.0 [facility] Comment on above: Order Comment: No: D o not add to previous draw Performed By: #### 5 [id number] #### [facility] [address] Hemoglobin (Bld) [Mass/Vol] 8.4 g/dL Low 12.0-15.0 [facility] Comment on above: Order Comment: No: D o not add to previous draw Performed By: #### 5 0608 #### [facility] [address] [place] [address], [facility] MCH (RBC) [Entitic mass] 29.9 pg Normal 27.0-33.0 [facility] Comment on above: Order Comment: No: D o not add to previous draw Performed By: #### 5 [id number] #### [facility] [address] [facility] [address], [facility] MCHC (RBC) [Mass/Vol] 30.1 g/dL Low 32.0-35.0 [facility] Comment on above: Order Comment: No: D o not add to previous draw Performed By: #### 5 [id number] #### [facility] [address] [place] [address], [facility] MCV (RBC) [Entitic vol] 99.3 fL High 82.0-98.0 [facility] Comment on above: Order Comment: No: D o not add to previous draw Performed By: #### 5 0608 #### [facility] [address] [facility] [place] [address] Nucleated RBC/100 WBC (Bld) [Ratio] 0 % Normal 0-0 [facility] Comment on above: Order Comment: No: D o not add to previous draw Performed By: #### 5 0608 #### [facility] [address] [facility] [place] [address], [facility] PLAT CNT 281 10*3/uL Normal 150-400 The [facility] Comment on above: Order Comment: No: D o not add to previous draw Performed By: #### 5 0608 #### [facility] [address] [place] [address], [place] RBC (Bld) [#/Vol] 2.81 10*6/uL Low 3.80-5.00 [facility] Comment on above: Order Comment: No: D o not add to previous draw Performed By: #### 5 0608 #### [facility] [address] [place] [address], [place] WBC (Bld) [#/Vol] 22.46 10*3/uL High 4.00-10.60 [facility] Comment on above: Order Comment: No: D o not add to previous draw Performed By: #### 5 0608 #### [facility] [address] [place] [address], [place] MAGNESIUM BLOODon 04-07-2022 Magnesium [Mass/Vol] 1.7 mg/dL Low 1.9-2.7 [facility] Comment on above: Order Comment: No: D o not add to previous draw Performed By: #### 8 [id number] #### [facility] [address] [place] [address], [place] POC GLUCOSE LABon 04-07-2022 Glucose [Mass/Vol] 192 mg/dL High 70-100 The [facility] Comment on above: Performed By: #### 8 [id number] ####[facility] [place] [address], [place] Glucose [Mass/Vol] 139 mg/dL High 70-100 The [facility] Comment on above: Performed By: #### 8 [id number] #### [facility] [address] [place] [address], [place] Glucose [Mass/Vol] 144 mg/dL High 70-100 The [facility] Comment on above: Performed By: #### 8 [id number] #### [facility] [address] [place] [address], [place] Glucose [Mass/Vol] 111 mg/dL High 70-100 The [facility] Comment on above: Performed By: #### 8 [id number] #### [facility] [address] [place] [address], [facility] BASIC METABOLIC PANELon 05-2 0-2021 Calcium [Mass/Vol] 8.2 mg/dL Low 8.6-10.3 The [facility] Comment on above: Order Comment: Bleed , altereed mental status Performed By: #### 0 0071, 72610, 42088, 29457, 83558 ####[facility] [place] [address], [facility] Chloride [Moles/Vol] 106 mmol/L Normal 98-107 [facility] Comment on above: Order Comment: Bleed , altereed mental status Performed By: #### 0 0071, 13682, 91410, 80137, 71316 ####[facility] [place] [address], [facility] CO2 [Moles/Vol] 27 mmol/L Normal 21-31 The [facility] Comment on above: Order Comment: Bleed , altereed mental status Performed By: #### 0 0071, 10151, 09700, 66242, 17766 ####[facility] [place] [address], [facility] Creatinine [Mass/Vol] 1.07 mg/dL Normal 0.60-1.20 [facility] Comment on above: Order Comment: Bleed , altereed mental status Performed By: #### 0 0071, 75032, 58695, 35701, 19384 ####[facility] [place] [address], [facility] eGFR- 59 ml/min/1.73sq m Abnormal >60 [facility] Comment on above: Order Comment: Bleed , altereed mental status Result Comment: Calc ulation may not be valid for patients over 70 years Performed By: #### 0 0071, 19629, 79574, 91568, 07567 ####[facility] [place] [address], [facility] eGFR- non- 49 ml/min/1.73sq m Abnormal >60 [facility] Comment on above: Order Comment: Bleed , altereed mental status Result Comment: Calc ulation may not be valid for patients over 70 years Performed By: #### 0 0071, 41096, 74066, 45234, 47989 ####[facility] [place] [address], [facility] Glucose [Mass/Vol] 100 mg/dL Normal 70-100 The [facility] Comment on above: Order Comment: Bleed , altereed mental status Performed By: #### 0 0071, 60309, 30207, 59363, 79828 ####[facility] [place] [address], [facility] Potassium [Moles/Vol] 4.0 mmol/L Normal 3.5-5.1 [facility] Comment on above: Order Comment: Bleed , altereed mental status Performed By: #### 0 0071, 24634, 70938, 65182, 01793 ####[facility] [place] [address], [facility] Sodium [Moles/Vol] 139 mmol/L Normal 136-145 The [facility] Comment on above: Order Comment: Bleed , altereed mental status Performed By: #### 0 0071, 06204, 41876, 82969, 49424 ####[facility] [place] [address], [facility] Urea nitrogen [Mass/Vol] 15 mg/dL Normal 7-25 [facility] Comment on above: Order Comment: Bleed , altereed mental status Performed By: #### 0 0071, 40422, 10671, 60752, 51623 ####[facility] [place] [address], [facility] BNP (B-TYPE NATRIURETIC PEPT KAELA)on 04-06-2022 Natriuretic peptide B (Bld) [Mass/Vol] 487 pg/mL High 0-100 The [facility] Comment on above: Order Comment: Yes: Add to Previous draw if able Result Comment: Give n the appropriate clinical setting a BNP result of >100 pg/mL indicates congestive heart failure. Performed By: #### 8 [id number] #### [facility] [address] [place] [address], [facility] CBC W/DIFFon 04-06-2022 ABS IMM GRANS 0.5 10*3/uL High 0.0-0.2 The [facility] Comment on above: Order Comment: No: D o not add to previous draw Performed By: #### 8 5499 #### [facility] [address] [place] [address], [facility] ABS NEUTROPHILS 18.4 10*3/uL High 1.6-7.6 The [facility] [place] Comment on above: Order Comment: No: D o not add to previous draw Performed By: #### 8 [id number] #### [facility] [address] [place] [address], [facility] Basophils (Bld) [#/Vol] 0.1 10*3/uL Normal 0.0-0.2 [facility] Comment on above: Order Comment: No: D o not add to previous draw Performed By: #### 8 [id number] #### [facility] [address] [place] [address], [facility] Basophils/100 WBC (Bld) 0.5 % Normal 0.0-1.0 [facility] Comment on above: Order Comment: No: D o not add to previous draw Performed By: #### 8 [id number] #### [facility] [address] [place] [address], [facility] Eosinophils (Bld) [#/Vol] 0.0 10*3/uL Normal 0.0-0.5 [facility] Comment on above: Order Comment: No: D o not add to previous draw Performed By: #### 8 [id number] #### [facility] [address] [place] [address], [facility] Eosinophils/100 WBC (Bld) 0.0 % Normal 0.0-6.0 [facility] Comment on above: Order Comment: No: D o not add to previous draw Performed By: #### 8 [id number] #### [facility] [address] Erythrocyte distribution width (RBC) [Ratio] 19.4 % High 11.5-15.0 [facility] Comment on above: Order Comment: No: D o not add to previous draw Performed By: #### 8 [id number] #### [facility] [address] [place] [address], [facility] Hematocrit (Bld) [Volume fraction] 28.6 % Low 36.0-45.0 [facility] Comment on above: Order Comment: No: D o not add to previous draw Performed By: #### 8 [id number] #### [facility] [address] [place] [address], [facility] Hemoglobin (Bld) [Mass/Vol] 8.8 g/dL Low 12.0-15.0 [facility] Comment on above: Order Comment: No: D o not add to previous draw Performed By: #### 8 [id number] #### [facility] [address] [place] [address], [facility] IMMATURE GRANS 2.3 % High 0.0-1.0 The [facility] Comment on above: Order Comment: No: D o not add to previous draw Performed By: #### 8 [id number] #### [facility] [address] [place] [address], [facility] Lymphocytes (Bld) [#/Vol] 1.5 10*3/uL Normal 1.2-4.0 [facility] Comment on above: Order Comment: No: D o not add to previous draw Performed By: #### 8 [id number] #### [facility] [address] [place] [address], [facility] Lymphocytes/100 WBC (Bld) 7.2 % Low 20.0-45.0 [facility] Comment on above: Order Comment: No: D o not add to previous draw Performed By: #### 8 [id number] #### [facility] [address] [place] [address], [facility] MCH (RBC) [Entitic mass] 30.1 pg Normal 27.0-33.0 [facility] Comment on above: Order Comment: No: D o not add to previous draw Performed By: #### 8 [id number] #### [facility] [address] MCHC (RBC) [Mass/Vol] 30.8 g/dL Low 32.0-35.0 [facility] Comment on above: Order Comment: No: D o not add to previous draw Performed By: #### 8 [id number] #### [facility] [address] [facility] [place] [address], [facility] MCV (RBC) [Entitic vol] 97.9 fL Normal 82.0-98.0 [facility] Comment on above: Order Comment: No: D o not add to previous draw Performed By: #### 8 [id number] #### [facility] [address] [facility] [address], [facility] Monocytes (Bld) [#/Vol] 0.3 10*3/uL Normal 0.1-1.0 [facility] Comment on above: Order Comment: No: D o not add to previous draw Performed By: #### 8 [id number] #### [facility] [address] [place] [address], [facility] MONOS 1.6 % Low 5.0-12.0 [facility] Comment on above: Order Comment: No: D o not add to previous draw Performed By: #### 8 [id number] #### [facility] [address] [place] [address], [facility] Neutrophils/100 WBC (Bld) 88.4 % High 40.0-72.0 [facility] Comment on above: Order Comment: No: D o not add to previous draw Performed By: #### 8 [id number] #### [facility] [address] [place] [address], [facility] Nucleated RBC/100 WBC (Bld) [Ratio] 0 % Normal 0-0 [facility] Comment on above: Order Comment: No: D o not add to previous draw Performed By: #### 8 [id number] #### [facility] [address] [place] [address], [facility] PLAT CNT 279 10*3/uL Normal 150-400 [facility] Comment on above: Order Comment: No: D o not add to previous draw Performed By: #### 8 [id number] #### [facility] [address] [place] [address], [facility] RBC (Bld) [#/Vol] 2.92 10*6/uL Low 3.80-5.00 The [facility] Comment on above: Order Comment: No: D o not add to previous draw Performed By: #### 8 [id number] #### [facility] [address] [place] [address], [facility] WBC (Bld) [#/Vol] 20.84 10*3/uL High 4.00-10.60 [facility] Comment on above: Order Comment: No: D o not add to previous draw Performed By: #### 8 [id number] #### [facility] [address] [facility] [place] [address], [facility] DIGOXINon 04-06-2022 Digoxin [Mass/Vol] 1.0 ng/mL Normal 0.7-2.0 The [facility] Comment on above: Performed By: #### 0 0071, 52829, 55067, 08757, 06919 ####[facility] [place] [address], [place] LIPASE BLOODon 04-06-2022 LIPASE 68 Units/L Normal 11-82 [facility] Comment on above: Performed By: #### 0 0071, 39713, 16268, 79545, 85510 ####[facility] [place] [address], [place] MAGNESIUM BLOODon 04-06-2022 Magnesium [Mass/Vol] 1.6 mg/dL Low 1.9-2.7 [facility] Comment on above: Order Comment: Bleed , altereed mental status Performed By: #### 0 0071, 39016, 43259, 68101, 07536 ####[facility] [place] [address], [facility] PHOSPHORUS BLOODon Phosphate [Mass/Vol] 3.5 mg/dL Normal 2.5-5.0 [facility] Comment on above: Order Comment: No: D o not add to previous draw Performed By: #### 8 [id number] #### [facility] [address] [place] [address], [place] POC GLUCOSE LABon 04-06-2022 Glucose [Mass/Vol] 121 mg/dL High 70-100 The [facility] Comment on above: Performed By: #### 3 0313 #### [facility] [address] [place] [address], [place] Glucose [Mass/Vol] 171 mg/dL High 70-100 [facility] Comment on above: Performed By: #### 8 5499 #### [facility] [address] [place] [address], [place] Glucose [Mass/Vol] 178 mg/dL High 70-100 [facility] Comment on above: Performed By: #### 8 [id number] #### [facility] [address] Glucose [Mass/Vol] 102 mg/dL High 70-100 [facility] Comment on above: Performed By: #### 5 0608 #### [facility] [address] [place] [address], [facility] APTTon 04-05-2022 aPTT Coag (Bld) [Time] 29.7 s Normal 25.0-35.0 [facility] Comment on above: Order Comment: No: [...] PURPOSE. Performed By: #### 8 [id number] #### [facility] [address] [facility] [place] [address], [facility] CBC W/DIFFon 04-05-2022 ABS IMM GRANS 0.4 10*3/uL High 0.0-0.2 [facility] Comment on above: Order Comment: No: D o not add to previous draw Performed By: #### 8 [id number] #### [facility] [address] [facility] [place] [address], [facility] ABS NEUTROPHILS 19.7 10*3/uL High 1.6-7.6 The [facility] [place] Comment on above: Order Comment: No: D o not add to previous draw Performed By: #### 8 [id number] #### [facility] [address] [facility] [place] [address], [facility] ANISO Moderate Normal [facility] Comment on above: Order Comment: No: D o not add to previous draw Performed By: #### 8 [id number] #### [facility] [address] [facility] [address], [facility] Basophils (Bld) [#/Vol] 0.2 10*3/uL Normal 0.0-0.2 [facility] Comment on above: Order Comment: No: D o not add to previous draw Performed By: #### 8 [id number] #### [facility] [address] [place] [address], [facility] Basophils/100 WBC (Bld) 0.7 % Normal 0.0-1.0 [facility] Comment on above: Order Comment: No: D o not add to previous draw Performed By: #### 8 [id number] #### [facility] [address] [place] [address], [facility] Eosinophils (Bld) [#/Vol] 0.0 10*3/uL Normal 0.0-0.5 [facility] Comment on above: Order Comment: No: D o not add to previous draw Performed By: #### 8 5499 #### [facility] [address] [place] [address], [facility] Eosinophils/100 WBC (Bld) 0.1 % Normal 0.0-6.0 [facility] Comment on above: Order Comment: No: D o not add to previous draw Performed By: #### 8 [id number] #### [facility] [address] [place] [id number], [facility] Erythrocyte distribution width (RBC) [Ratio] 19.5 % High 11.5-15.0 [facility] Comment on above: Order Comment: No: D o not add to previous draw Performed By: #### 8 [id number] #### [facility] [address] [place] [address], [place] Hematocrit (Bld) [Volume fraction] 27.8 % Low 36.0-45.0 [facility] Comment on above: Order Comment: No: D o not add to previous draw Performed By: #### 8 [id number] #### [facility] [address] [place] [address], [facility] Hemoglobin (Bld) [Mass/Vol] 8.6 g/dL Low 12.0-15.0 [facility] Comment on above: Order Comment: No: D o not add to previous draw Performed By: #### 8 [id number] #### [facility] [address] [place] [address], [facility] IMMATURE GRANS 2.0 % High 0.0-1.0 [facility] Comment on above: Order Comment: No: D o not add to previous draw Performed By: #### 8 5499 #### [facility] [address] [place] [address], [facility] Lymphocytes (Bld) [#/Vol] 1.4 10*3/uL Normal 1.2-4.0 [facility] Comment on above: Order Comment: No: D o not add to previous draw Performed By: #### 8 [id number] #### [facility] [address] [place] [address], [facility] Lymphocytes/100 WBC (Bld) 6.5 % Low 20.0-45.0 [facility] Comment on above: Order Comment: No: D o not add to previous draw Performed By: #### 8 [id number] #### [facility] [address] [place] [address], [facility] MCH (RBC) [Entitic mass] 30.3 pg Normal 27.0-33.0 [facility] Comment on above: Order Comment: No: D o not add to previous draw Performed By: #### 8 [id number] #### [facility] [address] [place] [address], [facility] MCHC (RBC) [Mass/Vol] 30.9 g/dL Low 32.0-35.0 [facility] Comment on above: Order Comment: No: D o not add to previous draw Performed By: #### 8 [id number] #### [facility] [address] [place] [id number] MCV (RBC) [Entitic vol] 97.9 fL Normal 82.0-98.0 [facility] Comment on above: Order Comment: No: D o not add to previous draw Performed By: #### 8 [id number] #### [facility] [address] [place] [address], [facility] Monocytes (Bld) [#/Vol] 0.4 10*3/uL Normal 0.1-1.0 [facility] Comment on above: Order Comment: No: D o not add to previous draw Performed By: #### 8 [id number] #### [facility] [address] [place] [id number], [facility] MONOS 1.9 % Low 5.0-12.0 [facility] Comment on above: Order Comment: No: D o not add to previous draw Performed By: #### 8 5499 #### [facility] [address] [place] [id number], [facility] Neutrophils/100 WBC (Bld) 88.8 % High 40.0-72.0 [facility] Comment on above: Order Comment: No: D o not add to previous draw Performed By: #### 8 [id number] #### [facility] [address] [place] [id number], [facility] Nucleated RBC/100 WBC (Bld) [Ratio] 0 % Normal 0-0 [facility] Comment on above: Order Comment: No: D o not add to previous draw Performed By: #### 8 [id number] #### [facility] [address] [place] [address], [place] PLAT CNT 303 10*3/uL Normal 150-400 [facility] Comment on above: Order Comment: No: D o not add to previous draw Performed By: #### 8 5499 #### [facility] [address] [place] [address], [place] POIK Slight Normal [facility] Comment on above: Order Comment: No: D o not add to previous draw Performed By: #### 8 5499 #### [facility] [address] [facility] [place] [address], [facility] POLY Slight Normal [facility] Comment on above: Order Comment: No: D o not add to previous draw Performed By: #### 8 5499 #### [facility] [address] [place] [address], [facility] RBC (Bld) [#/Vol] 2.84 10*6/uL Low 3.80-5.00 [facility] Comment on above: Order Comment: No: D o not add to previous draw Performed By: #### 8 [id number] #### [facility] [address] [facility] [place] [address], [facility] WBC (Bld) [#/Vol] 22.20 10*3/uL High 4.00-10.60 [facility] Comment on above: Order Comment: No: D o not add to previous draw Performed By: #### 8 [id number] #### [facility] [address] [facility]. [address] COMP METABOLIC PANELon 04-05 Albumin [Mass/Vol] 2.5 g/dL Low 3.5-5.7 [facility] Comment on above: Order Comment: The A ptima SARS-CoV-2 assay is a nucleic acid amplification test intended for the qualitative detection of RNA from SARS-CoV-2 isolated and purified from nasopharyngeal (WILDLIFE CONTROL OPERATOR),oropharyngeal (OP), nasal swab, sputum, and bronchoalveolar lavage (BAL) specimens from patients with signs and symptoms of infection who are suspected of COVID-19. Results are for the identification of SARS-CoV-2 RNA. The SARS-CoV-2 RNA is generally detectable during the acute phase of infection. The Aptima SARS-CoV-2 Assay on the [place] [place] [employer] system is intended for use by laboratory personnel specifically instructed and trained in the operation of the [place] [employer] [place] [employer] system. The Aptima SARS-CoV-2 assay is [...] information. Performed By: #### 3 1792 #### [facility] [address] [facility]. [address] ALKALINE PHOSPH 100 IU/L Normal 34-[address] [facility] Comment on above: Order Comment: The A ptima SARS-CoV-2 assay is a nucleic acid amplification test intended for the qualitative detection of RNA from SARS-CoV-2 isolated and purified from nasopharyngeal (WILDLIFE CONTROL OPERATOR),oropharyngeal (OP), nasal swab, sputum, and bronchoalveolar lavage (BAL) specimens from patients with signs and symptoms of infection who are suspected of COVID-19. Results are for the identification of SARS-CoV-2 RNA. The SARS-CoV-2 RNA is generally detectable during the acute phase of infection. The Aptima SARS-CoV-2 Assay on the [place] [employer] [place] [employer] system is intended for use by laboratory personnel specifically instructed and trained in the operation of the [place] [employer] [place] [place] [employer] system. The Aptima SARS-CoV-2 assay is [...] information. Performed By: #### 3 1792 #### [facility] [address] [facility]. [address] ALT [Catalytic activity/Vol] 13 U/L Normal 7-52 [facility] Comment on above: Order Comment: The A ptima SARS-CoV-2 assay is a nucleic acid amplification test intended for the qualitative detection of RNA from SARS-CoV-2 isolated and purified from nasopharyngeal (WILDLIFE CONTROL OPERATOR),oropharyngeal (OP), nasal swab, sputum, and bronchoalveolar lavage (BAL) specimens from patients with signs and symptoms of infection who are suspected of COVID-19. Results are for the identification of SARS-CoV-2 RNA. The SARS-CoV-2 RNA is generally detectable during the acute phase of infection. The Aptima SARS-CoV-2 Assay on the [place] [employer] [place] [employer] system is intended for use by laboratory personnel specifically instructed and trained in the operation of the [place] [employer] [place] [employer] system. The Aptima SARS-CoV-2 assay is [...] information. Performed By: #### 3 1792 #### [facility] [address] AST [Catalytic activity/Vol] 12 U/L Low 13-39 [facility] Comment on above: Order Comment: The A ptima SARS-CoV-2 assay is a nucleic acid amplification test intended for the qualitative detection of RNA from SARS-CoV-2 isolated and purified from nasopharyngeal (WILDLIFE CONTROL OPERATOR),oropharyngeal (OP), nasal swab, sputum, and bronchoalveolar lavage (BAL) specimens from patients with signs and symptoms of infection who are suspected of COVID-19. Results are for the identification of SARS-CoV-2 RNA. The SARS-CoV-2 RNA is generally detectable during the acute phase of infection. The Aptima SARS-CoV-2 Assay on the [place] [employer] [place] [employer] system is intended for use by laboratory personnel specifically instructed and trained in the operation of the [place] [employer] [place] [employer] system. The Aptima SARS-CoV-2 assay is [...] information. Performed By: #### 3 1792 #### [facility] [address] [facility]. [address] Bilirubin [Mass/Vol] 0.8 mg/dL Normal 0.3-1.0 [place] [facility] Comment on above: Order Comment: The A ptima SARS-CoV-2 assay is a nucleic acid amplification test intended for the qualitative detection of RNA from SARS-CoV-2 isolated and purified from nasopharyngeal (WILDLIFE CONTROL OPERATOR),oropharyngeal (OP), nasal swab, sputum, and bronchoalveolar lavage (BAL) specimens from patients with signs and symptoms of infection who are suspected of COVID-19. Results are for the identification of SARS-CoV-2 RNA. The SARS-CoV-2 RNA is generally detectable during the acute phase of infection. The Aptima SARS-CoV-2 Assay on the [employer] system is intended for use by laboratory personnel specifically instructed and trained in the operation of the [place] [employer] [place] [employer] system. The Aptima SARS-CoV-2 assay is [...] information. Performed By: #### 3 [id number] #### [facility] [address] [facility] [place] [address], [facility] Calcium [Mass/Vol] 8.1 mg/dL Low 8.6-10.3 [facility] Comment on above: Order Comment: The A ptima SARS-CoV-2 assay is a nucleic acid amplification test intended for the qualitative detection of RNA from SARS-CoV-2 isolated and purified from nasopharyngeal (WILDLIFE CONTROL OPERATOR),oropharyngeal (OP), nasal swab, sputum, and bronchoalveolar lavage (BAL) specimens from patients with signs and symptoms of infection who are suspected of COVID-19. Results are for the identification of SARS-CoV-2 RNA. The SARS-CoV-2 RNA is generally detectable during the acute phase of infection. The Aptima SARS-CoV-2 Assay on the [place] [employer] [place] [employer] system is intended for use by laboratory personnel specifically instructed and trained in the operation of the [place] [employer] [place] [employer] system. The Aptima SARS-CoV-2 assay is [...] information. Performed By: #### 3 1792 #### [address] Chloride [Moles/Vol] 106 mmol/L Normal 98-107 [facility] Comment on above: Order Comment: The A ptima SARS-CoV-2 assay is a nucleic acid amplification test intended for the qualitative detection of RNA from SARS-CoV-2 isolated and purified from nasopharyngeal (WILDLIFE CONTROL OPERATOR),oropharyngeal (OP), nasal swab, sputum, and bronchoalveolar lavage (BAL) specimens from patients with signs and symptoms of infection who are suspected of COVID-19. Results are for the identification of SARS-CoV-2 RNA. The SARS-CoV-2 RNA is generally detectable during the acute phase of infection. The Aptima SARS-CoV-2 Assay on the [place] [employer] [place] [employer] system is intended for use by laboratory personnel specifically instructed and trained in the operation of the [place] [employer] [place] [employer] system. The Aptima SARS-CoV-2 assay is [...] information. Performed By: #### 3 [id number] #### [facility] [address] [facility]. [address] CO2 [Moles/Vol] 26 mmol/L Normal 21-[address] [facility] Comment on above: Order Comment: The A ptima SARS-CoV-2 assay is a nucleic acid amplification test intended for the qualitative detection of RNA from SARS-CoV-2 isolated and purified from nasopharyngeal (WILDLIFE CONTROL OPERATOR),oropharyngeal (OP), nasal swab, sputum, and bronchoalveolar lavage (BAL) specimens from patients with signs and symptoms of infection who are suspected of COVID-19. Results are for the identification of SARS-CoV-2 RNA. The SARS-CoV-2 RNA is generally detectable during the acute phase of infection. The Aptima SARS-CoV-2 Assay on the [employer] system is intended for use by laboratory personnel specifically instructed and trained in the operation of the [place] [employer] system. The Aptima SARS-CoV-2 assay is [...] information. Performed By: #### 3 1792 #### [facility] [address] Creatinine [Mass/Vol] 1.24 mg/dL High 0.60-1.20 [facility] Comment on above: Order Comment: The A ptima SARS-CoV-2 assay is a nucleic acid amplification test intended for the qualitative detection of RNA from SARS-CoV-2 isolated and purified from nasopharyngeal (WILDLIFE CONTROL OPERATOR),oropharyngeal (OP), nasal swab, sputum, and bronchoalveolar lavage (BAL) specimens from patients with signs and symptoms of infection who are suspected of COVID-19. Results are for the identification of SARS-CoV-2 RNA. The SARS-CoV-2 RNA is generally detectable during the acute phase of infection. The Aptima SARS-CoV-2 Assay on the [place] [employer] [place] [employer] system is intended for use by laboratory personnel specifically instructed and trained in the operation of the [place] [employer] [place] [employer] system. The Aptima SARS-CoV-2 assay is [...] and epidemiological information. Performed By: #### 3 [id number] #### [facility] [address] [facility]. [address] eGFR- 50 ml/min/1.73sq m Abnormal >60 [facility] Comment on above: Order Comment: The A ptima SARS-CoV-2 assay is a nucleic acid amplification test intended for the qualitative detection of RNA from SARS-CoV-2 isolated and purified from nasopharyngeal (WILDLIFE CONTROL OPERATOR),oropharyngeal (OP), nasal swab, sputum, and bronchoalveolar lavage (BAL) specimens from patients with signs and symptoms of infection who are suspected of COVID-19. Results are for the identification of SARS-CoV-2 RNA. The SARS-CoV-2 RNA is generally detectable during the acute phase of infection. The Aptima SARS-CoV-2 Assay on the [place] [employer] [place] [employer] system is intended for use by laboratory personnel specifically instructed and trained in the operation of the [place] [employer] [place] [employer] system. The Aptima SARS-CoV-2 assay is [...] over 70 years Performed By: #### 3 [id number] #### [facility] [address] [facility], [place] [address], [facility] eGFR- non- 42 ml/min/1.73sq m Abnormal >60 [facility] Comment on above: Order Comment: The A ptima SARS-CoV-2 assay is a nucleic acid amplification test intended for the qualitative detection of RNA from SARS-CoV-2 isolated and purified from nasopharyngeal (WILDLIFE CONTROL OPERATOR),oropharyngeal (OP), nasal swab, sputum, and bronchoalveolar lavage (BAL) specimens from patients with signs and symptoms of infection who are suspected of COVID-19. Results are for the identification of SARS-CoV-2 RNA. The SARS-CoV-2 RNA is generally detectable during the acute phase of infection. The Aptima SARS-CoV-2 Assay on the [employer] system is intended for use by laboratory personnel specifically instructed and trained in the operation of the [place] [employer] [place] [employer] system. The Aptima SARS-CoV-2 assay is [...] years Performed By: #### 3 1792 #### [facility] [address] Glucose [Mass/Vol] 95 mg/dL Normal 70-100 [facility] Comment on above: Order Comment: The A ptima SARS-CoV-2 assay is a nucleic acid amplification test intended for the qualitative detection of RNA from SARS-CoV-2 isolated and purified from nasopharyngeal (WILDLIFE CONTROL OPERATOR),oropharyngeal (OP), nasal swab, sputum, and bronchoalveolar lavage (BAL) specimens from patients with signs and symptoms of infection who are suspected of COVID-19. Results are for the identification of SARS-CoV-2 RNA. The SARS-CoV-2 RNA is generally detectable during the acute phase of infection. The Aptima SARS-CoV-2 Assay on the [place] [employer] [place] [employer] system is intended for use by laboratory personnel specifically instructed and trained in the operation of the [place] [employer] [place] [employer] system. The Aptima SARS-CoV-2 assay is [...] information. Performed By: #### 3 1792 #### [facility] [address] [facility]. [address] Potassium [Moles/Vol] 4.1 mmol/L Normal 3.5-5.1 [facility] Comment on above: Order Comment: The A ptima SARS-CoV-2 assay is a nucleic acid amplification test intended for the qualitative detection of RNA from SARS-CoV-2 isolated and purified from nasopharyngeal (WILDLIFE CONTROL OPERATOR),oropharyngeal (OP), nasal swab, sputum, and bronchoalveolar lavage (BAL) specimens from patients with signs and symptoms of infection who are suspected of COVID-19. Results are for the identification of SARS-CoV-2 RNA. The SARS-CoV-2 RNA is generally detectable during the acute phase of infection. The Aptima SARS-CoV-2 Assay on the [place] [employer] [place] [employer] system is intended for use by laboratory personnel specifically instructed and trained in the operation of the [place] [employer] [place] [employer] system. The Aptima SARS-CoV-2 assay is [...] and epidemiological information. Performed By: #### 3 [id number] #### [facility] [address] Protein [Mass/Vol] 5.0 g/dL Low 6.0-8.3 [facility] Comment on above: Order Comment: The A ptima SARS-CoV-2 assay is a nucleic acid amplification test intended for the qualitative detection of RNA from SARS-CoV-2 isolated and purified from nasopharyngeal (WILDLIFE CONTROL OPERATOR),oropharyngeal (OP), nasal swab, sputum, and bronchoalveolar lavage (BAL) specimens from patients with signs and symptoms of infection who are suspected of COVID-19. Results are for the identification of SARS-CoV-2 RNA. The SARS-CoV-2 RNA is generally detectable during the acute phase of infection. The Aptima SARS-CoV-2 Assay on the [employer] system is intended for use by laboratory personnel specifically instructed and trained in the operation of the [place] [employer] [place] [employer] system. The Aptima SARS-CoV-2 assay is [...] information. Performed By: #### 3 1792 #### [facility] [address] Sodium [Moles/Vol] 138 mmol/L Normal 136-145 [facility] Comment on above: Order Comment: The A ptima SARS-CoV-2 assay is a nucleic acid amplification test intended for the qualitative detection of RNA from SARS-CoV-2 isolated and purified from nasopharyngeal (WILDLIFE CONTROL OPERATOR),oropharyngeal (OP), nasal swab, sputum, and bronchoalveolar lavage (BAL) specimens from patients with signs and symptoms of infection who are suspected of COVID-19. Results are for the identification of SARS-CoV-2 RNA. The SARS-CoV-2 RNA is generally detectable during the acute phase of infection. The Aptima SARS-CoV-2 Assay on the [employer] system is intended for use by laboratory personnel specifically instructed and trained in the operation of the [place] [employer] [place] [employer] system. The Aptima SARS-CoV-2 assay is [...] information. Performed By: #### 3 1792 #### [facility] [address] [place] [address], [facility] Urea nitrogen [Mass/Vol] 24 mg/dL Normal 7-25 [facility] Comment on above: Order Comment: The A ptima SARS-CoV-2 assay is a nucleic acid amplification test intended for the qualitative detection of RNA from SARS-CoV-2 isolated and purified from nasopharyngeal (WILDLIFE CONTROL OPERATOR),oropharyngeal (OP), nasal swab, sputum, and bronchoalveolar lavage (BAL) specimens from patients with signs and symptoms of infection who are suspected of COVID-19. Results are for the identification of SARS-CoV-2 RNA. The SARS-CoV-2 RNA is generally detectable during the acute phase of infection. The Aptima SARS-CoV-2 Assay on the [place] [employer] [place] [employer] system is intended for use by laboratory personnel specifically instructed and trained in the operation of the [place] [employer] [place] [employer] system. The Aptima SARS-CoV-2 assay is [...] information. Performed By: #### 3 1792 #### [facility] [address] [place] [address], [facility] HEMOGLOBINon 04-05-2022 Hemoglobin (Bld) [Mass/Vol] 8.9 g/dL Low 12.0-15.0 [facility] Comment on above: Order Comment: No: D o not add to previous draw Performed By: #### 8 [id number] #### [facility] [address] [place] [address], [facility] Hemoglobin (Bld) [Mass/Vol] 10.1 g/dL Low 12.0-15.0 [facility] Comment on above: Order Comment: No: D o not add to previous draw Performed By: #### 8 [id number] #### [facility] [address] [place] [address], [facility] MAGNESIUM BLOODon 04-05-2022 Magnesium [Mass/Vol] 1.6 mg/dL Low 1.9-2.7 [facility] Comment on above: Order Comment: The A ptima SARS-CoV-2 assay is a nucleic acid amplification test intended for the qualitative detection of RNA from SARS-CoV-2 isolated and purified from nasopharyngeal (WILDLIFE CONTROL OPERATOR),oropharyngeal (OP), nasal swab, sputum, and bronchoalveolar lavage (BAL) specimens from patients with signs and symptoms of infection who are suspected of COVID-19. Results are for the identification of SARS-CoV-2 RNA. The SARS-CoV-2 RNA is generally detectable during the acute phase of infection. The Aptima SARS-CoV-2 Assay on the [place] [employer] [place] [employer] system is intended for use by laboratory personnel specifically instructed and trained in the operation of the [place] [employer] system. The Aptima SARS-CoV-2 assay is [...] information. Performed By: #### 3 1792 #### [facility] [address] [place] [address], [facility] PHOSPHORUS BLOODon Phosphate [Mass/Vol] 3.5 mg/dL Normal 2.5-5.0 [facility] Comment on above: Order Comment: The A ptima SARS-CoV-2 assay is a nucleic acid amplification test intended for the qualitative detection of RNA from SARS-CoV-2 isolated and purified from nasopharyngeal (WILDLIFE CONTROL OPERATOR),oropharyngeal (OP), nasal swab, sputum, and bronchoalveolar lavage (BAL) specimens from patients with signs and symptoms of infection who are suspected of COVID-19. Results are for the identification of SARS-CoV-2 RNA. The SARS-CoV-2 RNA is generally detectable during the acute phase of infection. The Aptima SARS-CoV-2 Assay on the [employer] [employer] system is intended for use by laboratory personnel specifically instructed and trained in the operation of the [place] [employer] [place] [employer] system. The Aptima SARS-CoV-2 assay is [...] information. Performed By: #### 3 1792 #### [facility] [address] [place] [address], [facility] POC GLUCOSE LABon 04-05-2022 Glucose [Mass/Vol] 115 mg/dL High 70-100 [facility] Comment on above: Performed By: #### 5 [id number] #### [facility] [address] [place] [address], [place] Glucose [Mass/Vol] 119 mg/dL High 70-100 [facility] Comment on above: Performed By: #### 8 [id number] #### [facility] [address] [place] [address], [place] Glucose [Mass/Vol] 145 mg/dL High 70-100 [facility] Comment on above: Performed By: #### 8 [id number] #### [facility] [address] [place] [address], [facility] Glucose [Mass/Vol] 108 mg/dL High 70-100 [facility] Comment on above: Performed By: #### 8 [id number] #### [facility] [address] [place] [address], [place] Glucose [Mass/Vol] 117 mg/dL High 70-100 [facility] Comment on above: Performed By: #### 8 [id number] #### [facility] [address] [facility] [place] [address], [facility] PROTHROMBIN TIMEon 2 INR Coag (PPP) [Relative time] 1.13 {INR} Normal 0.91-1.16 [facility] Comment on above: Order Comment: No: [...] 1995;[id number]. Performed By: #### 8 [id number] #### [facility] [address] [place] [address], [facility] PT Coag (PPP) [Time] 14.5 s Normal 12.3-14.8 [facility] Comment on above: Order Comment: No: D o not add to previous draw Result Comment: ALL RESULTS MUST BE INTERPRETED WITH RESPECT TO BLOOD DRAWING ARTIFACT OR DILUTION ERROR OF ANTICOAGULANT AT THE TIME OF SAMPLING. Performed By: #### 8 [id number] #### [facility] [address] [place] [address], [facility] APTTon 04-04-2022 aPTT Coag (Bld) [Time] 31.2 s Normal 25.0-35.0 [facility] Comment on above: Order Comment: No: [...] PURPOSE. Performed By: #### 8 [id number] #### [facility] [address] [place] [address], [facility] ARTERIAL BLOOD GAS WITH ICAo n 04-04-2022 BASE EXCESS 0 mmol/L Normal -2-3 [facility] Comment on above: Performed By: #### 8 [id number] #### [facility] [address] [place] [address], [facility] [employer] NASAL CANNULA Normal [facility] Comment on above: Performed By: #### 8 [id number] #### [facility] [address] [place] [address], [place] HCO3 (Bld) [Moles/Vol] 26 mmol/L Normal 21-28 [facility] Comment on above: Performed By: #### 8 [id number] #### [facility] [address] [place] [address], [place] IONIZED CALCIUM 1.18 mmol/L Normal 1.13-1.32 [facility] Comment on above: Performed By: #### 8 [id number] #### [facility] [address] [place] [address], [facility] LPM 2.0 LPM Normal [facility] Comment on above: Performed By: #### 8 [id number] #### [facility] [address] [place] [address], [place] Oxygen (Bld) [Partial pressure] 74 mm[Hg] Low 83-108 [facility] Comment on above: Performed By: #### 8 [id number] #### [facility] [address] [place] [address], [facility] Oxygen saturation in Blood 95.4 % Normal 94.0-97.0 [facility] Comment on above: Performed By: #### 8 [id number] #### [facility] [address] [place] [address], [facility] PCO2 45 mmHg Normal 35-45 [facility] Comment on above: Performed By: #### 8 [id number] #### [facility] [address] [place] [address], [place] pH (Bld) 7.37 [pH] Normal 7.35-7.45 [facility] Comment on above: Performed By: #### 8 [id number] #### [facility] [address] [place] [address], [facility] CBC W/DIFFon 04-04-2022 ABS IMM GRANS 0.7 10*3/uL High 0.0-0.2 [facility] Comment on above: Order Comment: No: D o not add to previous draw Performed By: #### 8 [id number] #### [facility] [address] [place] [address], [facility] ABS NEUTROPHILS 19.9 10*3/uL High 1.6-7.6 The [facility] Comment on above: Order Comment: No: D o not add to previous draw Performed By: #### 8 [id number] #### [facility] [address] [place] [address], [facility] ANISO Moderate Normal [facility] Comment on above: Order Comment: No: D o not add to previous draw Performed By: #### 8 [id number] #### [facility] [address] [place] [address], [place] Basophils (Bld) [#/Vol] 0.2 10*3/uL Normal 0.0-0.2 [facility] Comment on above: Order Comment: No: D o not add to previous draw Performed By: #### 8 [id number] #### [facility] [address] [place] [id number], [facility] Basophils/100 WBC (Bld) 0.7 % Normal 0.0-1.0 [facility] Comment on above: Order Comment: No: D o not add to previous draw Performed By: #### 8 [id number] #### [facility] [address] [place] [address], [place] Eosinophils (Bld) [#/Vol] 0.0 10*3/uL Normal 0.0-0.5 [facility] Comment on above: Order Comment: No: D o not add to previous draw Performed By: #### 8 [id number] #### [facility] [address] [place] [address], [facility] Eosinophils/100 WBC (Bld) 0.1 % Normal 0.0-6.0 [facility] Comment on above: Order Comment: No: D o not add to previous draw Performed By: #### 8 [id number] #### [facility] [address] [place] [id number], [place] Erythrocyte distribution width (RBC) [Ratio] 20.2 % High 11.5-15.0 [facility] Comment on above: Order Comment: No: D o not add to previous draw Performed By: #### 8 [id number] #### [facility] [address] Hematocrit (Bld) [Volume fraction] 28.0 % Low 36.0-45.0 [facility] Comment on above: Order Comment: No: D o not add to previous draw Performed By: #### 8 [id number] #### [facility] [address] [place] [address], [facility] Hemoglobin (Bld) [Mass/Vol] 8.8 g/dL Low 12.0-15.0 [facility] Comment on above: Order Comment: No: D o not add to previous draw Performed By: #### 8 [id number] #### [facility] [address] [place] [address], [facility] IMMATURE GRANS 3.0 % High 0.0-1.0 The [facility] Comment on above: Order Comment: No: D o not add to previous draw Performed By: #### 8 [id number] #### [facility] [address] [facility] [place] [address], [facility] Lymphocytes (Bld) [#/Vol] 1.1 10*3/uL Low 1.2-4.0 [facility] Comment on above: Order Comment: No: D o not add to previous draw Performed By: #### 8 [id number] #### [facility] [address] [place] [address], [facility] Lymphocytes/100 WBC (Bld) 5.1 % Low 20.0-45.0 [facility] Comment on above: Order Comment: No: D o not add to previous draw Performed By: #### 8 [id number] #### [facility] [address] [place] [address], [facility] MCH (RBC) [Entitic mass] 29.9 pg Normal 27.0-33.0 [facility] Comment on above: Order Comment: No: D o not add to previous draw Performed By: #### 8 [id number] #### [facility] [address] [place] MCHC (RBC) [Mass/Vol] 31.4 g/dL Low 32.0-35.0 [facility] Comment on above: Order Comment: No: D o not add to previous draw Performed By: #### 8 [id number] #### [facility] [address] [place] [address], [facility] MCV (RBC) [Entitic vol] 95.2 fL Normal 82.0-98.0 [facility] Comment on above: Order Comment: No: D o not add to previous draw Performed By: #### 8 [id number] #### [facility] [address] [place] [address], [facility] Monocytes (Bld) [#/Vol] 0.4 10*3/uL Normal 0.1-1.0 [facility] Comment on above: Order Comment: No: D o not add to previous draw Performed By: #### 8 [id number] #### [facility] [address] [place] [address], [facility] MONOS 2.0 % Low 5.0-12.0 [facility] Comment on above: Order Comment: No: D o not add to previous draw Performed By: #### 8 [id number] #### [facility] [address] [place] [address], [facility] Neutrophils/100 WBC (Bld) 89.1 % High 40.0-72.0 [facility] Comment on above: Order Comment: No: D o not add to previous draw Performed By: #### 8 [id number] #### [facility] [address] [place] [address], [facility] Nucleated RBC/100 WBC (Bld) [Ratio] 0 % Normal 0-0 [facility] Comment on above: Order Comment: No: D o not add to previous draw Performed By: #### 8 [id number] #### [facility] [address] [place] [id number], [facility] PLAT CNT 303 10*3/uL Normal 150-400 [facility] Comment on above: Order Comment: No: D o not add to previous draw Performed By: #### 8 [id number] #### [facility] [address] [place] [address], [facility] POIK Slight Normal [facility] Comment on above: Order Comment: No: D o not add to previous draw Performed By: #### 8 [id number] #### [facility] [address] [place] [address], [facility] POLY Slight Normal [facility] Comment on above: Order Comment: No: D o not add to previous draw Performed By: #### 8 [id number] #### [facility] [address] [place] [address], [facility] RBC (Bld) [#/Vol] 2.94 10*6/uL Low 3.80-5.00 [facility] Comment on above: Order Comment: No: D o not add to previous draw Performed By: #### 8 [id number] #### [facility] [address] [place] [address], [facility] [facility] WBC (Bld) [#/Vol] 22.35 10*3/uL High 4.00-10.60 [facility] Comment on above: Order Comment: No: D o not add to previous draw Performed By: #### 8 [id number] #### [facility] [address] [place] [address], [facility] COMP METABOLIC PANELon 04-04 Albumin [Mass/Vol] 2.4 g/dL Low 3.5-5.7 [facility] Comment on above: Order Comment: No: D o not add to previous draw Performed By: #### 8 [id number] #### [facility] [address] [place] [address], [facility] ALKALINE PHOSPH 92 IU/L Normal 34-104 [facility] Comment on above: Order Comment: No: D o not add to previous draw Performed By: #### 8 [id number] #### [facility] [address] [place] [address], [place] ALT [Catalytic activity/Vol] 12 U/L Normal 7-52 [facility] Comment on above: Order Comment: No: D o not add to previous draw Performed By: #### 8 [id number] #### [facility] [address] [place] [address], [place] AST [Catalytic activity/Vol] 10 U/L Low 13-39 [facility] Comment on above: Order Comment: No: D o not add to previous draw Performed By: #### 8 [id number] #### [facility] [address] [place] [address], [place] Bilirubin [Mass/Vol] 1.0 mg/dL Normal 0.3-1.0 [facility] Comment on above: Order Comment: No: D o not add to previous draw Performed By: #### 8 [id number] #### [facility] [address] [place] [address], [place] Calcium [Mass/Vol] 7.7 mg/dL Low 8.6-10.3 [facility] Comment on above: Order Comment: No: D o not add to previous draw Performed By: #### 8 [id number] #### [facility] [address] [place] [address], [place] Chloride [Moles/Vol] 110 mmol/L High 98-107 [facility] Comment on above: Order Comment: No: D o not add to previous draw Performed By: #### 8 [id number] #### [facility] [address] [place] [address], [place] CO2 [Moles/Vol] 24 mmol/L Normal 21-31 [facility] Comment on above: Order Comment: No: D o not add to previous draw Performed By: #### 8 [id number] #### [facility] [address] [place] [address], [facility] Creatinine [Mass/Vol] 1.18 mg/dL Normal 0.60-1.20 [facility] Comment on above: Order Comment: No: D o not add to previous draw Performed By: #### 8 [id number] #### [facility] [address] [place] [address], [facility] eGFR- 53 ml/min/1.73sq m Abnormal >60 [facility] Comment on above: Order Comment: No: D o not add to previous draw Result Comment: Calc ulation may not be valid for patients over 70 years Performed By: #### 8 [id number] #### [facility] [address] [place] [address], [facility] eGFR- non- 44 ml/min/1.73sq m Abnormal >60 [facility] Comment on above: Order Comment: No: D o not add to previous draw Result Comment: Calc ulation may not be valid for patients over 70 years Performed By: #### 8 [id number] #### [facility] [address] [place] [address], [place] Glucose [Mass/Vol] 90 mg/dL Normal 70-100 [facility] Comment on above: Order Comment: No: D o not add to previous draw Performed By: #### 8 [id number] #### [facility] [address] [place] [address], [place] Potassium [Moles/Vol] 4.3 mmol/L Normal 3.5-5.1 [facility] Comment on above: Order Comment: No: D o not add to previous draw Performed By: #### 8 [id number] #### [facility] [address] [place] [address], [place] Protein [Mass/Vol] 4.8 g/dL Low 6.0-8.3 [facility] Comment on above: Order Comment: No: D o not add to previous draw Performed By: #### 8 [id number] #### [facility] [address] [place] [address], [facility] Sodium [Moles/Vol] 140 mmol/L Normal 136-145 [facility] Comment on above: Order Comment: No: D o not add to previous draw Performed By: #### 8 [id number] #### [facility] [address] [place] [address], [facility] Urea nitrogen [Mass/Vol] 37 mg/dL High 7-25 [facility] Comment on above: Order Comment: No: D o not add to previous draw Performed By: #### 8 [id number] #### [facility] [address] [place] [address], [facility] Endoscopy Reporton Endoscopy Report MR#: [id number] [facility] Pt. Name: María Elena Tafoya Surgery Date: 04/03/2022 Room #: [facility] [id number] Date of : 1940 PROCEDURE NOTE ATTENDING: [...] P/Elizabeth Olivo M.D. Date Trans: 04/04/2022 04:28 A/erik [id number] cc: Bennie Albright M.D. [address], [facility] [address] Normal [facility] HEMOGLOBINon 04-04-2022 Hemoglobin (Bld) [Mass/Vol] 9.4 g/dL Low 12.0-15.0 [facility] Comment on above: Order Comment: No: D o not add to previous draw Performed By: #### 8 [id number] #### [facility] [address] [place] [address], [facility] Hemoglobin (Bld) [Mass/Vol] 9.5 g/dL Low 12.0-15.0 [facility] Comment on above: Order Comment: No: D o not add to previous draw Performed By: #### 5 0608 #### [facility] [address] [place] [address], [facility] Hemoglobin (Bld) [Mass/Vol] 8.9 g/dL Low 12.0-15.0 [facility] Comment on above: Order Comment: No: D o not add to previous draw Performed By: #### 8 [id number] #### [facility] [address] [place] [id number], [facility] MAGNESIUM BLOODon 04-04-2022 Magnesium [Mass/Vol] 1.6 mg/dL Low 1.9-2.7 [facility] Comment on above: Order Comment: No: D o not add to previous draw Performed By: #### 8 [id number] #### [facility] [address] [facility] [place] [id number], [facility] PHOSPHORUS BLOODon 2 Phosphate [Mass/Vol] 3.8 mg/dL Normal 2.5-5.0 [facility] Comment on above: Order Comment: No: D o not add to previous draw Performed By: #### 8 [id number] #### [facility] [address] [place] [id number], [facility] POC GLUCOSE LABon 04-04-2022 Glucose [Mass/Vol] 123 mg/dL High 70-100 [facility] Comment on above: Performed By: #### 5 0608 #### [facility] [address] [place] [address], [facility] Glucose [Mass/Vol] 152 mg/dL High 70-100 [facility] Comment on above: Performed By: #### 8 [id number] ####[facility] [place] [address], [facility] Glucose [Mass/Vol] 111 mg/dL High 70-100 [facility] Comment on above: Performed By: #### 8 [id number] #### [facility] [address] [place] [address], [place] Glucose [Mass/Vol] 109 mg/dL High 70-100 [facility] Comment on above: Performed By: #### 8 [id number] #### [facility] [address] [place] [address], [facility] Glucose [Mass/Vol] 94 mg/dL Normal 70-100 [facility] Comment on above: Performed By: #### 8 [id number] ####[facility] [facility].[address] PROTHROMBIN TIMEon 2 INR Coag (PPP) [Relative time] 1.18 {INR} High 0.91-1.16 [facility] Comment on above: Order Comment: No: [...] 1995;108:231S-246S. Performed By: #### 8 [id number] #### [facility] [address] PT Coag (PPP) [Time] 14.9 s High 12.3-14.8 [facility] Comment on above: Order Comment: No: D o not add to previous draw Result Comment: ALL RESULTS MUST BE INTERPRETED WITH RESPECT TO BLOOD DRAWING ARTIFACT OR DILUTION ERROR OF ANTICOAGULANT AT THE TIME OF SAMPLING. Performed By: #### 8 [id number] #### [address] UFH HEPARIN ASSAYon 04-04-20 22 UNFRACTIONATED HEPARIN 0.11 IU/mL Critically low 0.30-0.70 [facility] Comment on above: Result Comment: RESU LTS CHECKED AND CALLED. ACCURATELY READ BACK BY CHAZ LAWLER RN @ 0533 Rivaroxaban and Apixaban will interfere with the anti Xa assay used to monitor UFH and LMWH. Performed By: #### 8 [id number] #### [address] US GALLBLADDERon 04-04-2022 US GALLBLADDER [facility] Department of Radiology [address] [place] [id number] ======== Patient Name: MARÍA ELENA TAFOYA : 1940 Sex: F Age: Race: NA Pt. Location: [id number] Patient Status: I Ordered Date: 04/03/2022 8:05:00 [...] calculi. Electronically signed: Brooke Verduzco. Transcribed by: [email or web address], User Resident: Electronically Signed by: BROOKE VERDUZCO @ 04/04/2022 07:46 AM Normal [facility] Comment on above: Order Comment: Stone s VENOUS BLOOD GASon 2 BASE EXCESS 2 mmol/L Normal [facility] Comment on above: Performed By: #### 8 [id number] #### [facility] [address] [facility] [place] [address], [facility] HCO3 (Bld) [Moles/Vol] 27 mmol/L Normal [facility] Comment on above: Performed By: #### 8 [id number] #### [facility] [address] [place] [address], [place] Oxygen (Bld) [Partial pressure] 72 mm[Hg] Critically high 35-45 [facility] Comment on above: Performed By: #### 8 [id number] #### [facility] [address] Oxygen saturation in Blood 93.8 % High 65.0-75.0 [facility] Comment on above: Performed By: #### 8 [id number] #### [facility] [address] [place] [address], [facility] PCO2 42 mmHg Normal [facility] Comment on above: Performed By: #### 8 [id number] #### [facility] [address] [facility] [place] [address], [facility] pH (Bld) 7.41 [pH] Normal 7.31-7.41 [facility] Comment on above: Performed By: #### 8 [id number] #### [facility] [address] [facility] [place] [address] APTTon 04-03-2022 aPTT Coag (Bld) [Time] 32.6 s Normal 25.0-35.0 [facility] Comment on above: Order Comment: Yes: Add [...] PURPOSE. Performed By: #### 8 [id number] #### [facility] [address] [place] [address], [facility] ARTERIAL BLOOD GAS WITH ICAo n 04-03-2022 BASE EXCESS 2 mmol/L Normal -2-3 [facility] Comment on above: Performed By: #### 8 [id number] #### [facility] [address] [place] [address], [facility] [employer] [place] Normal [facility] Comment on above: Performed By: #### 8 [id number] #### [facility] [address] [place] [address], [facility] HCO3 (Bld) [Moles/Vol] 25 mmol/L Normal 21-28 [facility] Comment on above: Performed By: #### 8 [id number] #### [facility] [address] [facility]. [address] IONIZED CALCIUM 1.24 mmol/L Normal 1.13-1.32 [facility] Comment on above: Performed By: #### 8 [id number] #### [facility] [address] [facility]. [address] LPM 4.0 LPM Normal [facility] Comment on above: Performed By: #### 8 [id number] #### [facility] [address] [facility]. [address] Oxygen (Bld) [Partial pressure] 76 mm[Hg] Low 83-108 [facility] Comment on above: Performed By: #### 8 [id number] #### [facility] [address] [facility]. [address] Oxygen saturation in Blood 94.0 % Normal 94.0-97.0 [facility] Comment on above: Performed By: #### 8 [id number] #### [facility] [address] [place] [address], [facility] PCO2 34 mmHg Low 35-45 [facility] Comment on above: Performed By: #### 8 [id number] #### [facility] [address] [facility] [place] [address], [facility] pH (Bld) 7.48 [pH] High 7.35-7.45 [facility] Comment on above: Performed By: #### 8 [id number] #### [facility] [address] [place] [address], [facility] BASIC METABOLIC PANELon 05-1 Calcium [Mass/Vol] 8.5 mg/dL Low 8.6-10.3 [facility] Comment on above: Order Comment: No: D o not add to previous draw Performed By: #### 8 [id number] #### [facility] [address] [place] [address], [place] Chloride [Moles/Vol] 108 mmol/L High 98-107 [facility] Comment on above: Order Comment: No: D o not add to previous draw Performed By: #### 8 [id number] #### [facility] [address] [place] [address], [place] CO2 [Moles/Vol] 25 mmol/L Normal 21-31 [facility] Comment on above: Order Comment: No: D o not add to previous draw Performed By: #### 8 [id number] #### [facility] [address] [place] [address], [place] Creatinine [Mass/Vol] 0.96 mg/dL Normal 0.60-1.20 [facility] Comment on above: Order Comment: No: D o not add to previous draw Performed By: #### 8 [id number] #### [facility] [address] [place] [address], [facility] eGFR- non- 56 ml/min/1.73sq m Abnormal >60 [facility] Comment on above: Order Comment: No: D o not add to previous draw Result Comment: Calc ulation may not be valid for patients over 70 years Performed By: #### 8 [id number] #### [facility] [address] [place] [address], [facility] GFR/1.73 sq M.predicted among blacks MDRD (S/P/Bld) [Vol rate/Area] mL/min/{1.73_m2} Normal >60 [facility] Comment on above: Order Comment: No: D o not add to previous draw Result Comment: Calc ulation may not be valid for patients over 70 years Performed By: #### 8 [id number] #### [facility] [address] [place] [address], [facility] Glucose [Mass/Vol] 122 mg/dL High 70-100 [facility] Comment on above: Order Comment: No: D o not add to previous draw Performed By: #### 8 [id number] #### [facility] [address] [place] [address], [facility] Potassium [Moles/Vol] 5.5 mmol/L High 3.5-5.1 [facility] Comment on above: Order Comment: No: D o not add to previous draw Performed By: #### 8 [id number] #### [facility] [address] [place] [address], [facility] Sodium [Moles/Vol] 137 mmol/L Normal 136-145 [facility] Comment on above: Order Comment: No: D o not add to previous draw Performed By: #### 8 [id number] #### [facility] [address] [place] [address], [facility] Urea nitrogen [Mass/Vol] 30 mg/dL High 7-25 [facility] Comment on above: Order Comment: No: D o not add to previous draw Performed By: #### 8 [id number] #### [facility] [address] [place] [address], [facility] BLOOD STOOL GUAIACon 022 BLD STOOL GUAIAC Positive Abnormal NEGATIVE [facility] Comment on above: Order Comment: No: D o not add to previous draw Performed By: #### 2 2706 #### [facility] [address] [place] [address], [facility] CALCIUM IONIZED CBGLon 04-03 IONIZED CALCIUM 1.18 mmol/L Normal 1.12-1.30 [facility] Comment on above: Performed By: #### 8 [id number] #### [facility] [address] CBC COMPLETE BLOOD COUNTon 04-03-2022 Erythrocyte distribution width (RBC) [Ratio] 17.9 % High 11.5-15.0 [facility] Comment on above: Order Comment: No: D o not add to previous draw Performed By: #### 5 [id number] #### [facility] [address] [place] [address], [facility] Hematocrit (Bld) [Volume fraction] 34.4 % Low 36.0-45.0 [facility] Comment on above: Order Comment: No: D o not add to previous draw Performed By: #### 5 0608 #### [facility] [address] [place] [address], [facility] Hemoglobin (Bld) [Mass/Vol] 10.6 g/dL Low 12.0-15.0 [facility] Comment on above: Order Comment: No: D o not add to previous draw Performed By: #### 5 0608 #### [facility] [address] [facility] [place] [address], [facility] MCH (RBC) [Entitic mass] 30.3 pg Normal 27.0-33.0 [facility] Comment on above: Order Comment: No: D o not add to previous draw Performed By: #### 5 0608 #### [facility] [address] [place] [address], [facility] MCHC (RBC) [Mass/Vol] 30.8 g/dL Low 32.0-35.0 [facility] Comment on above: Order Comment: No: D o not add to previous draw Performed By: #### 5 0608 #### [facility] [address] [place] [address], [facility] MCV (RBC) [Entitic vol] 98.3 fL High 82.0-98.0 [facility] Comment on above: Order Comment: No: D o not add to previous draw Performed By: #### 5 0608 #### [facility] [address] [place] [place] [address], [facility] Nucleated RBC/100 WBC (Bld) [Ratio] 0 % Normal 0-0 [facility] Comment on above: Order Comment: No: D o not add to previous draw Performed By: #### 5 0608 #### [facility] [address] [facility] [place] [address], [facility] PLAT CNT 396 10*3/uL Normal 150-400 [facility] Comment on above: Order Comment: No: D o not add to previous draw Performed By: #### 5 0608 #### [facility] [address] [place] [address], [facility] RBC (Bld) [#/Vol] 3.50 10*6/uL Low 3.80-5.00 [facility] Comment on above: Order Comment: No: D o not add to previous draw Performed By: #### 5 0608 #### [facility] [address] [facility] [place] [address], [facility] WBC (Bld) [#/Vol] 34.46 10*3/uL High 4.00-10.60 [facility] Comment on above: Order Comment: No: D o not add to previous draw Performed By: #### 5 0608 #### [address] BRAIN WO CONTRASTon 04-03 CT BRAIN WO CONTRAST [facility] Department of Radiology [address] [place] [address] ======== Patient Name: MARÍA ELENA TAFOYA : 1940 Sex: F Age: Race: NA Pt. Location: [place] [address] Patient Status: I Ordered Date: 04/03/2022 8:30:00 [...] MR. Electronically signed: Darrel Chang. Transcribed by: [email or web address], User Resident: Electronically Signed by: DARREL CHANG @ 04/03/2022 09:21 PM Normal [facility] Comment on above: Order Comment: Bleed , altereed mental status ERCPon 04-03-2022 ERCP [facility] Department of Radiology [address] [place] [id number] ======== Patient Name: MARÍA ELENA TAFOYA : 1940 Sex: F Age: Race: NA Pt. Location: [id number] Patient Status: I Ordered Date: 04/03/2022 8:50:00 [...] details. Electronically signed: Brooke Verduzco. Transcribed by: [email or web address], User Resident: Electronically Signed by: BROOKE VERDUZCO @ 04/03/2022 12:52 PM Normal [facility] Comment on above: Order Comment: Check Stent Position HEMATOCRITon 04-03-2022 Hematocrit (Bld) [Volume fraction] 27.5 % Low 36.0-45.0 [facility] Comment on above: Order Comment: No: D o not add to previous draw Performed By: #### 8 [id number] #### [facility] [address] [place] [address], [place] Hematocrit (Bld) [Volume fraction] 31.1 % Low 36.0-45.0 [facility] Comment on above: Order Comment: No: D o not add to previous draw Performed By: #### 8 [id number] #### [facility] [address] [place] [address], [place] Hematocrit (Bld) [Volume fraction] 32.2 % Low 36.0-45.0 [facility] Comment on above: Order Comment: No: D o not add to previous draw Performed By: #### 8 [id number] #### [facility] [address] [place] [address], [place] HEMOGLOBINon 04-03-2022 Hemoglobin (Bld) [Mass/Vol] 8.8 g/dL Low 12.0-15.0 [facility] Comment on above: Order Comment: No: D o not add to previous draw Performed By: #### 8 [id number] #### [facility] [address] [place] [address], [place] Hemoglobin (Bld) [Mass/Vol] 9.8 g/dL Low 12.0-15.0 [facility] Comment on above: Order Comment: No: D o not add to previous draw Performed By: #### 8 [id number] #### [facility] [address] [place] [address], [place] Hemoglobin (Bld) [Mass/Vol] 9.9 g/dL Low 12.0-15.0 [facility] Comment on above: Order Comment: No: D o not add to previous draw Performed By: #### 8 [id number] #### [facility] [address] [place] [address], [place] LIPASE BLOODon 04-03-2022 LIPASE 149 Units/L High 11-82 [facility] Comment on above: Order Comment: No: D o not add to previous draw Performed By: #### 8 [id number] #### [facility] [address] [place] [address], [place] LIVER BATTERYon 04-03-2022 Albumin [Mass/Vol] 2.8 g/dL Low 3.5-5.7 [facility] Comment on above: Order Comment: No: D o not add to previous draw Performed By: #### 8 [id number] #### [facility] [address] [place] [address], [facility] ALKALINE PHOSPH 137 IU/L High 34-[address] [facility] Comment on above: Order Comment: No: D o not add to previous draw Performed By: #### 8 [id number] #### [facility] [address] [place] [address], [place] ALT [Catalytic activity/Vol] 18 U/L Normal 7-52 [facility] Comment on above: Order Comment: No: D o not add to previous draw Performed By: #### 8 [id number] #### [facility] [address] [place] [address], [place] AST [Catalytic activity/Vol] 8 U/L Low 13-39 [facility] Comment on above: Order Comment: No: D o not add to previous draw Performed By: #### 8 [id number] #### [facility] [address] [place] [address], [place] Bilirubin [Mass/Vol] 1.5 mg/dL High 0.3-1.0 [facility] Comment on above: Order Comment: No: D o not add to previous draw Performed By: #### 8 [id number] #### [facility] [address] [place] [address], [facility] Bilirubin.direct [Mass/Vol] 0.6 mg/dL High 0.0-0.2 [facility] Comment on above: Order Comment: No: D o not add to previous draw Performed By: #### 8 [id number] #### [facility] [address] [place] [address], [facility] Protein [Mass/Vol] 5.8 g/dL Low 6.0-8.3 [facility] Comment on above: Order Comment: No: D o not add to previous draw Performed By: #### 8 [id number] #### [facility] [address] [place] [address], [facility] MAGNESIUM BLOODon 04-03-2022 Magnesium [Mass/Vol] 2.0 mg/dL Normal 1.9-2.7 [facility] Comment on above: Order Comment: No: D o not add to previous draw Performed By: #### 8 [id number] #### [facility] [address] [place] [address], [facility] PHOSPHORUS BLOODon 2 Phosphate [Mass/Vol] 4.2 mg/dL Normal 2.5-5.0 [facility] Comment on above: Order Comment: No: D o not add to previous draw Performed By: #### 8 [id number] #### [facility] [address] [place] [address], [place] POC GLUCOSE LABon 04-03-2022 Glucose [Mass/Vol] 121 mg/dL High 70-100 [facility] Comment on above: Performed By: #### 8 [id number] #### [facility] [address] [place] [address], [place] Glucose [Mass/Vol] 147 mg/dL High 70-100 [facility] Comment on above: Performed By: #### 8 [id number] #### [facility] [address] [facility] [place] [address] Glucose [Mass/Vol] 133 mg/dL High 70-100 [facility] Comment on above: Performed By: #### 3 0313 #### [facility] [address] [facility] [place] [address], [facility] PROTHROMBIN TIMEon 2 INR Coag (PPP) [Relative time] 1.23 {INR} High 0.91-1.16 [facility] Comment on above: Order Comment: Yes: Add [...] 1995;108:231S-246S. Performed By: #### 8 [id number] #### [facility] [address] [facility] [place] [address], [facility] PT Coag (PPP) [Time] 15.5 s High 12.3-14.8 [facility] Comment on above: Order Comment: Yes: Add to Previous draw if ablePt is in [place] Result Comment: ALL RESULTS MUST BE INTERPRETED WITH RESPECT TO BLOOD DRAWING ARTIFACT OR DILUTION ERROR OF ANTICOAGULANT AT THE TIME OF SAMPLING. Performed By: #### 8 [id number] #### [facility] [address] [place] [address], [facility] RBC'S 1 UNITon 04-03-2022 CROSSMATCH INTERP 1 COMP Normal [facility] Comment on above: Performed By: #### 8 [id number] #### [facility] [address] [facility] PRODUCT CODE 1 E0336 Normal [facility] Comment on above: Performed By: #### 8 [id number] #### [facility] [address] [facility]. [address] PRODUCT STATUS 1 RE Normal The [facility] Comment on above: Result Comment: Resu lt changed by IF on 04/07/2022 06:43. The previous value was XM. Performed By: #### 8 [id number] #### [facility] [address] [facility] [address] UNIT ABO 1 A Normal [facility] Comment on above: Performed By: #### 8 [id number] #### [facility] [address] [facility] [address] UNIT ID 1 [id number] Normal The [facility] Comment on above: Performed By: #### 8 [id number] #### [facility] [address] [facility] [place] [address], [facility] UNIT RH 1 Negative Normal [facility] Comment on above: Performed By: #### 8 [id number] #### [facility] [address] [facility] [place] [address], [facility] RBC'S 2 UNITSon 04-03-2022 CROSSMATCH INTERP 1 COMP Normal [facility] Comment on above: Performed By: #### 8 [id number] #### [facility] [address] [place] [address], [place] CROSSMATCH INTERP 2 COMP Normal [facility] Comment on above: Performed By: #### 8 [id number] #### [facility] [address] [place] [address], [facility] PRODUCT CODE 1 E0686 Normal [facility] Comment on above: Performed By: #### 8 [id number] #### [facility] [address] [place] [address], [facility] PRODUCT CODE 2 E0336 Normal [facility] Comment on above: Performed By: #### 8 [id number] #### [facility] [address] [place] [address], [facility] PRODUCT STATUS 1 PT Normal The [facility] Comment on above: Result Comment: Resu lt changed by IF on 04/03/2022 10:21. The previous value was XM. Result changed by IF on 04/04/2022 00:30. The previous value was IS. Performed By: #### 8 [id number] #### [facility] [address] [place] [address], [facility] PRODUCT STATUS 2 PT Normal The [facility] Comment [...] IS. Performed By: #### 8 [id number] #### [facility] [address] [place] [address], [facility] UNIT ABO 1 A Normal [facility] Comment on above: Performed By: #### 8 [id number] #### [facility] [address] [place] [address], [place] UNIT ABO 2 A Normal [facility] Comment on above: Performed By: #### 8 [id number] #### [facility] [address] [place] [address], [facility] UNIT ID 1 [id number] Normal The [facility] Comment on above: Performed By: #### 8 [id number] #### [facility] [address] [place] [address], [facility] UNIT ID 2 [id number] Normal The [facility] Comment on above: Performed By: #### 8 [id number] #### [facility] [address] [place] [address], [facility] UNIT RH 1 Negative Normal The [facility] Comment on above: Performed By: #### 8 [id number] #### [facility] [address] [place] [address], [facility] UNIT RH 2 Negative Normal [facility] Comment on above: Performed By: #### 8 [id number] #### [facility] [address] [place] [address], [facility] TYPE AND SCREENon 04-03-2022 ABO INTERPRETATION AB Normal [facility] Comment on above: Performed By: #### 8 [id number] #### [facility] [address] [place] [address], [facility] RH INTERPRETATION Negative Normal The [facility] Comment on above: Performed By: #### 8 [id number] #### [facility] [address] [place] [address], [facility] UFH HEPARIN ASSAYon 04-03-20 22 UNFRACTIONATED HEPARIN 0.28 IU/mL Low 0.30-0.70 The [facility] Comment on above: Result Comment: [place] roxaban and Apixaban will interfere with the anti Xa assay used to monitor UFH and LMWH. Performed By: #### 8 [id number] #### [facility] [address] [place] [address], [facility] VENOUS BLOOD GAS W/COOXon BASE EXCESS -3 mmol/L Normal The [facility] Comment on above: Order Comment: RESUL TS CHECKED AND CALLED. ACCURATELY READ BACK BY AYANNA PHIPPS Performed By: #### 8 [id number] #### [facility] [address] [place] [address], [facility] COHB 2 % Normal The [facility] Comment on above: Order Comment: RESUL TS CHECKED AND CALLED. ACCURATELY READ BACK BY AYANNA PHIPPS Performed By: #### 8 [id number] #### [facility] [address] [place] [address], [facility] HCO3 (Bld) [Moles/Vol] 25 mmol/L Normal The [facility] Comment on above: Order Comment: RESUL TS CHECKED AND CALLED. ACCURATELY READ BACK BY AYANNA PHIPPS Performed By: #### 8 [id number] #### [facility] [address] [place] [address], [facility] METHB 0.3 % Normal [facility] Comment on above: Order Comment: RESUL TS CHECKED AND CALLED. ACCURATELY READ BACK BY AYANNA PHIPPS Performed By: #### 8 [id number] #### [facility] [address] [place] [address], [facility] Oxygen (Bld) [Partial pressure] 31 mm[Hg] Low 35-45 The [facility] Comment on above: Order Comment: RESUL TS CHECKED AND CALLED. ACCURATELY READ BACK BY AYANNA PHIPPS Performed By: #### 8 [id number] #### [facility] [address] [place] [address], [facility] Oxygen saturation in Blood 38.0 % Low 65.0-75.0 The [facility] Comment on above: Order Comment: RESUL TS CHECKED AND CALLED. ACCURATELY READ BACK BY AYANNA PHIPPS Performed By: #### 8 [id number] #### [facility] [address] [place] [address], [facility] PCO2 53 mmHg Normal The [facility] Comment on above: Order Comment: RESUL TS CHECKED AND CALLED. ACCURATELY READ BACK BY AYANNA PHIPPS Performed By: #### 8 [id number] #### [facility] [address] [place] [address], [facility] pH (Bld) 7.28 [pH] Low 7.31-7.41 The [facility] Comment on above: Order Comment: RESUL TS CHECKED AND CALLED. ACCURATELY READ BACK BY AYANNA PHIPPS Performed By: #### 8 [id number] #### [facility] [address] [facility] [place] [address], [facility] THB 9.2 g/dL Normal [facility] Comment on above: Order Comment: RESUL TS CHECKED AND CALLED. ACCURATELY READ BACK BY AYANNA PHIPPS Performed By: #### 8 [id number] #### [facility] [address] [facility] [address] BASIC METABOLIC PANELon 05-1 Calcium [Mass/Vol] 8.5 mg/dL Low 8.6-10.3 The [facility] Comment on above: Order Comment: The A ptima SARS-CoV-2 assay is a nucleic acid amplification test intended for the qualitative detection of RNA from SARS-CoV-2 isolated and purified from nasopharyngeal (WILDLIFE CONTROL OPERATOR),oropharyngeal (OP), nasal swab, sputum, and bronchoalveolar lavage (BAL) specimens from patients with signs and symptoms of infection who are suspected of COVID-19. Results are for the identification of SARS-CoV-2 RNA. The SARS-CoV-2 RNA is generally detectable during the acute phase of infection. The Aptima SARS-CoV-2 Assay on the [place] [employer] [place] [employer] system is intended for use by laboratory personnel specifically instructed and trained in the operation of the [place] [employer] [place] [employer] system. The Aptima SARS-CoV-2 assay is [...] information. Performed By: #### 3 [id number] #### [facility] [address] [facility] [place] [address], [facility] Chloride [Moles/Vol] 104 mmol/L Normal 98-107 [facility] Comment on above: Order Comment: The A ptima SARS-CoV-2 assay is a nucleic acid amplification test intended for the qualitative detection of RNA from SARS-CoV-2 isolated and purified from nasopharyngeal (WILDLIFE CONTROL OPERATOR),oropharyngeal (OP), nasal swab, sputum, and bronchoalveolar lavage (BAL) specimens from patients with signs and symptoms of infection who are suspected of COVID-19. Results are for the identification of SARS-CoV-2 RNA. The SARS-CoV-2 RNA is generally detectable during the acute phase of infection. The Aptima SARS-CoV-2 Assay on the [place] [employer] [place] [employer] system is intended for use by laboratory personnel specifically instructed and trained in the operation of the [place] [employer] [place] [employer] system. The Aptima SARS-CoV-2 assay is [...] information. Performed By: #### 3 [id number] #### [facility] [address] [facility] [place] [address], [facility] CO2 [Moles/Vol] 23 mmol/L Normal 21-31 The [facility] Comment on above: Order Comment: The A ptima SARS-CoV-2 assay is a nucleic acid amplification test intended for the qualitative detection of RNA from SARS-CoV-2 isolated and purified from nasopharyngeal (WILDLIFE CONTROL OPERATOR),oropharyngeal (OP), nasal swab, sputum, and bronchoalveolar lavage (BAL) specimens from patients with signs and symptoms of infection who are suspected of COVID-19. Results are for the identification of SARS-CoV-2 RNA. The SARS-CoV-2 RNA is generally detectable during the acute phase of infection. The Aptima SARS-CoV-2 Assay on the [place] [employer] [place] [employer] system is intended for use by laboratory personnel specifically instructed and trained in the operation of the [place] [employer] [place] [employer] system. The Aptima SARS-CoV-2 assay is [...] information. Performed By: #### 3 [id number] #### [facility] [address] [facility]. [address] Creatinine [Mass/Vol] 1.00 mg/dL Normal 0.60-1.20 The [facility] Comment on above: Order Comment: The A ptima SARS-CoV-2 assay is a nucleic acid amplification test intended for the qualitative detection of RNA from SARS-CoV-2 isolated and purified from nasopharyngeal (WILDLIFE CONTROL OPERATOR),oropharyngeal (OP), nasal swab, sputum, and bronchoalveolar lavage (BAL) specimens from patients with signs and symptoms of infection who are suspected of COVID-19. Results are for the identification of SARS-CoV-2 RNA. The SARS-CoV-2 RNA is generally detectable during the acute phase of infection. The Aptima SARS-CoV-2 Assay on the [place] [employer] [place] [employer] system is intended for use by laboratory personnel specifically instructed and trained in the operation of the [place] [employer] [place] [employer] system. The Aptima SARS-CoV-2 assay is [...] information. Performed By: #### 3 [id number] #### [facility] [address] [place] [address], [place] eGFR- non- 53 ml/min/1.73sq m Abnormal >60 The [facility] Comment on above: Order Comment: The A ptima SARS-CoV-2 assay is a nucleic acid amplification test intended for the qualitative detection of RNA from SARS-CoV-2 isolated and purified from nasopharyngeal (WILDLIFE CONTROL OPERATOR),oropharyngeal (OP), nasal swab, sputum, and bronchoalveolar lavage (BAL) specimens from patients with signs and symptoms of infection who are suspected of COVID-19. Results are for the identification of SARS-CoV-2 RNA. The SARS-CoV-2 RNA is generally detectable during the acute phase of infection. The Aptima SARS-CoV-2 Assay on the [place] [employer] system is intended for use by laboratory personnel specifically instructed and trained in the operation of the [place] [employer] [place] [employer] system. The Aptima SARS-CoV-2 assay is [...] years Performed By: #### 3 1792 #### [facility] [address] [place] [address], [facility] GFR/1.73 sq M.predicted among blacks MDRD (S/P/Bld) [Vol rate/Area] mL/min/{1.73_m2} Normal >60 The [facility] Comment on above: Order Comment: The A ptima SARS-CoV-2 assay is a nucleic acid amplification test intended for the qualitative detection of RNA from SARS-CoV-2 isolated and purified from nasopharyngeal (WILDLIFE CONTROL OPERATOR),oropharyngeal (OP), nasal swab, sputum, and bronchoalveolar lavage (BAL) specimens from patients with signs and symptoms of infection who are suspected of COVID-19. Results are for the identification of SARS-CoV-2 RNA. The SARS-CoV-2 RNA is generally detectable during the acute phase of infection. The Aptima SARS-CoV-2 Assay on the [place] [employer] [place] [employer] system is intended for use by laboratory personnel specifically instructed and trained in the operation of the [place] [employer] [place] [employer] system. The Aptima SARS-CoV-2 assay is [...] years Performed By: #### 3 1792 #### [facility] [address] Glucose [Mass/Vol] 87 mg/dL Normal 70-100 The [facility] Comment on above: Order Comment: The A ptima SARS-CoV-2 assay is a nucleic acid amplification test intended for the qualitative detection of RNA from SARS-CoV-2 isolated and purified from nasopharyngeal (WILDLIFE CONTROL OPERATOR),oropharyngeal (OP), nasal swab, sputum, and bronchoalveolar lavage (BAL) specimens from patients with signs and symptoms of infection who are suspected of COVID-19. Results are for the identification of SARS-CoV-2 RNA. The SARS-CoV-2 RNA is generally detectable during the acute phase of infection. The Aptima SARS-CoV-2 Assay on the [place] [employer] [place] [employer] system is intended for use by laboratory personnel specifically instructed and trained in the operation of the [place] [employer] [place] [employer] system. The Aptima SARS-CoV-2 assay is [...] information. Performed By: #### 3 [id number] #### [facility] [address] [facility] [place] [address], [facility] Potassium [Moles/Vol] 4.1 mmol/L Normal 3.5-5.1 The [facility] Comment on above: Order Comment: The A ptima SARS-CoV-2 assay is a nucleic acid amplification test intended for the qualitative detection of RNA from SARS-CoV-2 isolated and purified from nasopharyngeal (WILDLIFE CONTROL OPERATOR),oropharyngeal (OP), nasal swab, sputum, and bronchoalveolar lavage (BAL) specimens from patients with signs and symptoms of infection who are suspected of COVID-19. Results are for the identification of SARS-CoV-2 RNA. The SARS-CoV-2 RNA is generally detectable during the acute phase of infection. The Aptima SARS-CoV-2 Assay on the [place] [employer] [place] [employer] system is intended for use by laboratory personnel specifically instructed and trained in the operation of the [place] [employer] [place] [employer] system. The Aptima SARS-CoV-2 assay is [...] information. Performed By: #### 3 [id number] #### [facility] [address] [facility] [place] [address], [facility] Sodium [Moles/Vol] 135 mmol/L Low 136-145 The [facility] Comment on above: Order Comment: The A ptima SARS-CoV-2 assay is a nucleic acid amplification test intended for the qualitative detection of RNA from SARS-CoV-2 isolated and purified from nasopharyngeal (WILDLIFE CONTROL OPERATOR),oropharyngeal (OP), nasal swab, sputum, and bronchoalveolar lavage (BAL) specimens from patients with signs and symptoms of infection who are suspected of COVID-19. Results are for the identification of SARS-CoV-2 RNA. The SARS-CoV-2 RNA is generally detectable during the acute phase of infection. The Aptima SARS-CoV-2 Assay on the [place] [employer] [place] [employer] system is intended for use by laboratory personnel specifically instructed and trained in the operation of the [place] [employer] [place] [employer] system. The Aptima SARS-CoV-2 assay is [...] information. Performed By: #### 3 [id number] #### [facility] [address] [facility] [place] [address], [facility] Urea nitrogen [Mass/Vol] 17 mg/dL Normal 7-25 The [facility] Comment on above: Order Comment: The A ptima SARS-CoV-2 assay is a nucleic acid amplification test intended for the qualitative detection of RNA from SARS-CoV-2 isolated and purified from nasopharyngeal (WILDLIFE CONTROL OPERATOR),oropharyngeal (OP), nasal swab, sputum, and bronchoalveolar lavage (BAL) specimens from patients with signs and symptoms of infection who are suspected of COVID-19. Results are for the identification of SARS-CoV-2 RNA. The SARS-CoV-2 RNA is generally detectable during the acute phase of infection. The Aptima SARS-CoV-2 Assay on the [place] [employer] [place] [employer] system is intended for use by laboratory personnel specifically instructed and trained in the operation of the [place] [employer] [place] [employer] system. The Aptima SARS-CoV-2 assay is [...] information. Performed By: #### 3 [id number] #### [facility] [address] [place] [address], [facility] CALCIUM IONIZED CBGLon 04-02 IONIZED CALCIUM 1.15 mmol/L Normal 1.12-1.30 The [facility] Comment on above: Performed By: #### 8 [id number] #### [facility] [address] [facility] [place] [address], [facility] CBC W/DIFFon 04-02-2022 ABS IMM GRANS 0.5 10*3/uL High 0.0-0.2 The [facility] Comment on above: Order Comment: No: D o not add to previous draw Performed By: #### 8 [id number] #### [facility] [address] [place] [address], [facility] ABS NEUTROPHILS 27.8 10*3/uL High 1.6-7.6 The [facility] Comment on above: Order Comment: No: D o not add to previous draw Performed By: #### 8 [id number] #### [facility] [address] [facility] [place] [address], [facility] Basophils (Bld) [#/Vol] 0.2 10*3/uL Normal 0.0-0.2 The [facility] Comment on above: Order Comment: No: D o not add to previous draw Performed By: #### 8 [id number] #### [facility] [address] [facility] [place] [address], [facility] Basophils/100 WBC (Bld) 0.7 % Normal 0.0-1.0 The [facility] Comment on above: Order Comment: No: D o not add to previous draw Performed By: #### 8 [id number] #### [facility] [address] [facility]. [place] [id number], [facility] Eosinophils (Bld) [#/Vol] 0.0 10*3/uL Normal 0.0-0.5 The [facility] Comment on above: Order Comment: No: D o not add to previous draw Performed By: #### 8 [id number] #### [facility] [address] [place] [id number], [facility] Eosinophils/100 WBC (Bld) 0.1 % Normal 0.0-6.0 The [facility] Comment on above: Order Comment: No: D o not add to previous draw Performed By: #### 8 [id number] #### [facility] [address] [place] [address], [facility] Erythrocyte distribution width (RBC) [Ratio] 17.5 % High 11.5-15.0 The [facility] Comment on above: Order Comment: No: D o not add to previous draw Performed By: #### 8 [id number] #### [facility] [address] [place] [address], [facility] Hematocrit (Bld) [Volume fraction] 39.1 % Normal 36.0-45.0 The [facility] Comment on above: Order Comment: No: D o not add to previous draw Performed By: #### 8 [id number] #### [facility] [address] [place] [id number], [facility] Hemoglobin (Bld) [Mass/Vol] 12.1 g/dL Normal 12.0-15.0 The [facility] Comment on above: Order Comment: No: D o not add to previous draw Performed By: #### 8 [id number] #### [facility] [address] [place] [address], [facility] IMMATURE GRANS 1.8 % High 0.0-1.0 The [facility] Comment on above: Order Comment: No: D o not add to previous draw Performed By: #### 8 [id number] #### [facility] [address] [place] [address], [facility] Lymphocytes (Bld) [#/Vol] 1.1 10*3/uL Low 1.2-4.0 The [facility] Comment on above: Order Comment: No: D o not add to previous draw Performed By: #### 8 [id number] #### [facility] [address] [place] [id number], [facility] Lymphocytes/100 WBC (Bld) 3.5 % Low 20.0-45.0 The [facility] Comment on above: Order Comment: No: D o not add to previous draw Performed By: #### 8 [id number] #### [facility] [address] [facility] [place] [address], [facility] MCH (RBC) [Entitic mass] 30.1 pg Normal 27.0-33.0 The [facility] Comment on above: Order Comment: No: D o not add to previous draw Performed By: #### 8 [id number] #### [facility] [address] [facility] [place] [address], [facility] MCHC (RBC) [Mass/Vol] 30.9 g/dL Low 32.0-35.0 [facility] Comment on above: Order Comment: No: D o not add to previous draw Performed By: #### 8 [id number] #### [facility] [address] [facility] [place] [address], [facility] MCV (RBC) [Entitic vol] 97.3 fL Normal 82.0-98.0 [facility] Comment on above: Order Comment: No: D o not add to previous draw Performed By: #### 8 [id number] #### [facility] [address] [facility] [place] [address], [facility] Monocytes (Bld) [#/Vol] 0.6 10*3/uL Normal 0.1-1.0 The [facility] Comment on above: Order Comment: No: D o not add to previous draw Performed By: #### 8 [id number] #### [facility] [address] [facility] [address], [facility] MONOS 1.8 % Low 5.0-12.0 [facility] Comment on above: Order Comment: No: D o not add to previous draw Performed By: #### 8 [id number] #### [facility] [address] [facility] [place] [id number], [facility] Neutrophils/100 WBC (Bld) 92.1 % High 40.0-72.0 The [facility] [place] [facility] Comment on above: Order Comment: No: D o not add to previous draw Performed By: #### 8 [id number] #### [facility] [address] [place] [address], [facility] Nucleated RBC/100 WBC (Bld) [Ratio] 0 % Normal 0-0 [facility] Comment on above: Order Comment: No: D o not add to previous draw Performed By: #### 8 [id number] #### [facility] [address] [place] [address], [facility] PLAT CNT 370 10*3/uL Normal 150-400 The [facility] Comment on above: Order Comment: No: D o not add to previous draw Performed By: #### 8 [id number] #### [facility] [address] [facility] [place] [address], [facility] RBC (Bld) [#/Vol] 4.02 10*6/uL Normal 3.80-5.00 [facility] Comment on above: Order Comment: No: D o not add to previous draw Performed By: #### 8 [id number] #### [facility] [address] [place] [address], [facility] WBC (Bld) [#/Vol] 30.18 10*3/uL High 4.00-10.60 [facility] Comment on above: Order Comment: No: D o not add to previous draw Performed By: #### 8 [id number] #### [facility] [address] [place] [address], [facility] ERCPon 04-02-2022 ERCP [facility] Department of Radiology [address] [place] [address] [id number] ======== Patient Name: MARÍA ELENA TAFOYA : 1940 Sex: F Age: Race: NA Pt. Location: [id number] Patient Status: I Ordered Date: 04/02/2022 3:40:00 [...] details. Electronically signed: Brooke Verduzco. Transcribed by: [id number], User Resident: Electronically Signed by: BROOKE VERDUZCO @ 04/03/2022 09:48 AM Normal [facility] Comment on above: Order Comment: Check Stent Position Endoscopy Reporton Endoscopy Report MR#: [id number] [facility] Pt. Name: María Elena Tafoya Surgery Date: 04/02/2022 Room #: 5AB [id number] Date of : 1940 PROCEDURE NOTE ATTENDING: Elizabeth Olivo M.D. PLANT CONTROLLER: Felipe Gallo MD. PROCEDURE: ERCP with biliary [...] P/Felipe Gallo MD Date Trans: 04/02/2022 07:10 P/arelyo [id number] cc: Bennie Albright M.D. [address] [place] [id number] [place] [facility] LIVER BATTERYon 04-02-2022 Albumin [Mass/Vol] 3.0 g/dL Low 3.5-5.7 [facility] Comment on above: Order Comment: The A ptima SARS-CoV-2 assay is a nucleic acid amplification test intended for the qualitative detection of RNA from SARS-CoV-2 isolated and purified from nasopharyngeal (WILDLIFE CONTROL OPERATOR),oropharyngeal (OP), nasal swab, sputum, and bronchoalveolar lavage (BAL) specimens from patients with signs and symptoms of infection who are suspected of COVID-19. Results are for the identification of SARS-CoV-2 RNA. The SARS-CoV-2 RNA is generally detectable during the acute phase of infection. The Aptima SARS-CoV-2 Assay on the [place] [employer] [place] [employer] system is intended for use by laboratory personnel specifically instructed and trained in the operation of the [place] [employer] [place] [employer] system. The Aptima SARS-CoV-2 assay is [...] information. Performed By: #### 3 1792 #### [facility] [address] [place] [address], [facility] ALKALINE PHOSPH 174 IU/L High 34-104 The [facility] Comment on above: Order Comment: The A ptima SARS-CoV-2 assay is a nucleic acid amplification test intended for the qualitative detection of RNA from SARS-CoV-2 isolated and purified from nasopharyngeal (WILDLIFE CONTROL OPERATOR),oropharyngeal (OP), nasal swab, sputum, and bronchoalveolar lavage (BAL) specimens from patients with signs and symptoms of infection who are suspected of COVID-19. Results are for the identification of SARS-CoV-2 RNA. The SARS-CoV-2 RNA is generally detectable during the acute phase of infection. The Aptima SARS-CoV-2 Assay on the [place] [employer] [place] [employer] system is intended for use by laboratory personnel specifically instructed and trained in the operation of the [place] [employer] [place] [employer] system. The Aptima SARS-CoV-2 assay is [...] information. Performed By: #### 3 1792 #### [address] ALT [Catalytic activity/Vol] 21 U/L Normal 7-52 [facility] Comment on above: Order Comment: The A ptima SARS-CoV-2 assay is a nucleic acid amplification test intended for the qualitative detection of RNA from SARS-CoV-2 isolated and purified from nasopharyngeal (WILDLIFE CONTROL OPERATOR),oropharyngeal (OP), nasal swab, sputum, and bronchoalveolar lavage (BAL) specimens from patients with signs and symptoms of infection who are suspected of COVID-19. Results are for the identification of SARS-CoV-2 RNA. The SARS-CoV-2 RNA is generally detectable during the acute phase of infection. The Aptima SARS-CoV-2 Assay on the [place] [employer] [place] [employer] system is intended for use by laboratory personnel specifically instructed and trained in the operation of the [place] [employer] [place] [employer] system. The Aptima SARS-CoV-2 assay is [...] information. Performed By: #### 3 1792 #### [facility] [address] [place] [address], [facility] AST [Catalytic activity/Vol] 9 U/L Low 13-39 [facility] Comment on above: Order Comment: The A ptima SARS-CoV-2 assay is a nucleic acid amplification test intended for the qualitative detection of RNA from SARS-CoV-2 isolated and purified from nasopharyngeal (WILDLIFE CONTROL OPERATOR),oropharyngeal (OP), nasal swab, sputum, and bronchoalveolar lavage (BAL) specimens from patients with signs and symptoms of infection who are suspected of COVID-19. Results are for the identification of SARS-CoV-2 RNA. The SARS-CoV-2 RNA is generally detectable during the acute phase of infection. The Aptima SARS-CoV-2 Assay on the [place] [employer] [place] [employer] system is intended for use by laboratory personnel specifically instructed and trained in the operation of the [place] [employer] [place] [employer] system. The Aptima SARS-CoV-2 assay is [...] information. Performed By: #### 3 1792 #### [facility] [address] [place] [address], [facility] Bilirubin [Mass/Vol] 1.9 mg/dL High 0.3-1.0 [facility] Comment on above: Order Comment: The A ptima SARS-CoV-2 assay is a nucleic acid amplification test intended for the qualitative detection of RNA from SARS-CoV-2 isolated and purified from nasopharyngeal (WILDLIFE CONTROL OPERATOR),oropharyngeal (OP), nasal swab, sputum, and bronchoalveolar lavage (BAL) specimens from patients with signs and symptoms of infection who are suspected of COVID-19. Results are for the identification of SARS-CoV-2 RNA. The SARS-CoV-2 RNA is generally detectable during the acute phase of infection. The Aptima SARS-CoV-2 Assay on the [place] [employer] [place] [employer] system is intended for use by laboratory personnel specifically instructed and trained in the operation of the [place] [employer] [place] [employer] system. The Aptima SARS-CoV-2 assay is [...] information. Performed By: #### 3 1792 #### [address] Bilirubin.direct [Mass/Vol] 0.8 mg/dL High 0.0-0.2 [facility] Comment on above: Order Comment: The A ptima SARS-CoV-2 assay is a nucleic acid amplification test intended for the qualitative detection of RNA from SARS-CoV-2 isolated and purified from nasopharyngeal (WILDLIFE CONTROL OPERATOR),oropharyngeal (OP), nasal swab, sputum, and bronchoalveolar lavage (BAL) specimens from patients with signs and symptoms of infection who are suspected of COVID-19. Results are for the identification of SARS-CoV-2 RNA. The SARS-CoV-2 RNA is generally detectable during the acute phase of infection. The Aptima SARS-CoV-2 Assay on the [place] [employer] [place] [employer] system is intended for use by laboratory personnel specifically instructed and trained in the operation of the [place] [employer] [place] [employer] system. The Aptima SARS-CoV-2 assay is [...] information. Performed By: #### 3 1792 #### [facility] [address] [facility]. [address] Protein [Mass/Vol] 6.1 g/dL Normal 6.0-8.3 [facility] Comment on above: Order Comment: The A ptima SARS-CoV-2 assay is a nucleic acid amplification test intended for the qualitative detection of RNA from SARS-CoV-2 isolated and purified from nasopharyngeal (WILDLIFE CONTROL OPERATOR),oropharyngeal (OP), nasal swab, sputum, and bronchoalveolar lavage (BAL) specimens from patients with signs and symptoms of infection who are suspected of COVID-19. Results are for the identification of SARS-CoV-2 RNA. The SARS-CoV-2 RNA is generally detectable during the acute phase of infection. The Aptima SARS-CoV-2 Assay on the [place] [employer] [place] [employer] system is intended for use by laboratory personnel specifically instructed and trained in the operation of the [place] [employer] [place] [employer] system. The Aptima SARS-CoV-2 assay is [...] information. Performed By: #### 3 1792 #### [facility] [address] [facility] [address], [facility] MAGNESIUM BLOODon 04-02-2022 Magnesium [Mass/Vol] 1.3 mg/dL Low 1.9-2.7 [facility] Comment on above: Order Comment: The A ptima SARS-CoV-2 assay is a nucleic acid amplification test intended for the qualitative detection of RNA from SARS-CoV-2 isolated and purified from nasopharyngeal (WILDLIFE CONTROL OPERATOR),oropharyngeal (OP), nasal swab, sputum, and bronchoalveolar lavage (BAL) specimens from patients with signs and symptoms of infection who are suspected of COVID-19. Results are for the identification of SARS-CoV-2 RNA. The SARS-CoV-2 RNA is generally detectable during the acute phase of infection. The Aptima SARS-CoV-2 Assay on the [place] [employer] [place] [employer] system is intended for use by laboratory personnel specifically instructed and trained in the operation of the [place] [employer] [place] [employer] system. The Aptima SARS-CoV-2 assay is [...] information. Performed By: #### 3 1792 #### [address] PHOSPHORUS BLOODon 2 Phosphate [Mass/Vol] 2.9 mg/dL Normal 2.5-5.0 [facility] Comment on above: Order Comment: The A ptima SARS-CoV-2 assay is a nucleic acid amplification test intended for the qualitative detection of RNA from SARS-CoV-2 isolated and purified from nasopharyngeal (WILDLIFE CONTROL OPERATOR),oropharyngeal (OP), nasal swab, sputum, and bronchoalveolar lavage (BAL) specimens from patients with signs and symptoms of infection who are suspected of COVID-19. Results are for the identification of SARS-CoV-2 RNA. The SARS-CoV-2 RNA is generally detectable during the acute phase of infection. The Aptima SARS-CoV-2 Assay on the [place] [employer] [place] [employer] system is intended for use by laboratory personnel specifically instructed and trained in the operation of the [place] [employer] [place] [employer] system. The Aptima SARS-CoV-2 assay is [...] information. Performed By: #### 3 1792 #### [facility] [address] [place] [address], [facility] POC GLUCOSE LABon 04-02-2022 Glucose [Mass/Vol] 126 mg/dL High 70-100 The [facility] Comment on above: Performed By: #### 8 5499 #### [facility] [address] [place] [address], [place] Glucose [Mass/Vol] 102 mg/dL High 70-100 The [facility] Comment on above: Performed By: #### 8 5499 ####[facility] [place] [address], [place] Glucose [Mass/Vol] 123 mg/dL High 70-100 The [facility] Comment on above: Performed By: #### 8 5499 #### [facility] [address] [place] [address], [place] Glucose [Mass/Vol] 96 mg/dL Normal 70-100 [facility] Comment on above: Performed By: #### 8 5499 #### [facility] [address] [facility] [place] [address], [facility] POC [facility]2 [facility] SARS-CoV-2 (COVID-19) RNA MATTHEW+probe Ql (Unsp spec) Negative Normal NEGATIVE [facility] Comment on above: Result Comment: ID N [...] Accreditation. Performed By: #### 3 1921 #### [facility] [address] [facility] [place] [address], [facility] PROTHROMBIN TIMEon 2 INR Coag (PPP) [Relative time] 1.21 {INR} High 0.91-1.16 [facility] Comment on above: Order Comment: No: [...] 1995;[id number]. Performed By: #### 8 5499 #### [facility] [address] [facility] [place] [address], [facility] PT Coag (PPP) [Time] 15.3 s High 12.3-14.8 [facility] Comment on above: Order Comment: No: D o not add to previous draw Result Comment: ALL RESULTS MUST BE INTERPRETED WITH RESPECT TO BLOOD DRAWING ARTIFACT OR DILUTION ERROR OF ANTICOAGULANT AT THE TIME OF SAMPLING. Performed By: #### 8 [id number] #### [facility] [address] [facility] [place] [address] UFH HEPARIN ASSAYon 04-02-20 UNFRACTIONATED HEPARIN 0.96 IU/mL Critically high 0.30-0.70 [facility] Comment on above: Result Comment: Resu lt checked and called. Accurately read back by Eyal Griffin RN at 0543 Rivaroxaban and Apixaban will interfere with the anti Xa assay used to monitor UFH and LMWH. Performed By: #### 8 5499 #### [facility] [address] [facility]. [address] *SARS-CoV-2 COVID-19on 04-01 SARS-CoV-2 (COVID-19) RNA MATTHEW+probe Ql (Unsp spec) Not detected Normal Not Detected [facility] Comment on above: Order Comment: The A ptima SARS-CoV-2 assay is a nucleic acid amplification test intended for the qualitative detection of RNA from SARS-CoV-2 isolated and purified from nasopharyngeal (WILDLIFE CONTROL OPERATOR),oropharyngeal (OP), nasal swab, sputum, and bronchoalveolar lavage (BAL) specimens from patients with signs and symptoms of infection who are suspected of COVID-19. Results are for the identification of SARS-CoV-2 RNA. The SARS-CoV-2 RNA is generally detectable during the acute phase of infection. The Aptima SARS-CoV-2 Assay on the [place] [employer] [place] [employer] system is intended for use by laboratory personnel specifically instructed and trained in the operation of the [place] [employer] [place] [employer] system. The Aptima SARS-CoV-2 assay is [...] information. Performed By: #### 3 1792 #### [facility] [address] [facility] [address] AMMONIAon 04-01-2022 Ammonia (P) [Mass/Vol] ug/dL Critically low 11-32 The [facility] Comment on above: Performed By: #### A MM ####[facility] [address] [place], [place] [address]Dr. Bhavani Barragan APTTon 04-01-2022 aPTT Coag (Bld) [Time] 35.4 s High 25.0-35.0 [facility] Comment on above: Order Comment: No: [...] PURPOSE. Performed By: #### 8 [id number] #### [facility] [address] [facility]. [address] CBC AUTO DIFFon 04-01-2022 BASO # 0.2 103/ul Critically high 0.0-0.1 The [facility] Comment on above: Performed By: #### C BC ####[facility] [address] [place], [place] [address]Dr. Bhavani Barragan Basophils/100 WBC (Bld) 0.6 % Normal 0.2-2.0 [facility] Comment on above: Performed By: #### C BC ####[facility] [address] [place] [address]Dr. Bhavani Barragan EO # 0.0 103/ul Normal 0.0-0.7 [facility] Comment on above: Performed By: #### C BC ####[facility] [address] [place], [place] [address]Dr. Bhavani Barragan Eosinophils/100 WBC (Bld) 0.1 % Critically low 0.9-7.0 The [facility] Comment on above: Performed By: #### C BC ####[facility] [address] [place], [place] [address]Dr. Bhavani Barragan Erythrocyte distribution width (RBC) [Ratio] 17.8 % Critically high 11.0-15.0 The [facility] Comment on above: Performed By: #### C BC ####[facility] [address] [place] [address]Dr. Bhavani Barragan Hematocrit (Bld) [Volume fraction] 39.0 % Normal 36.0-48.0 The [facility] Comment on above: Performed By: #### C BC ####[facility] [address] [place] [address]Dr. Bhavani Barragan Hemoglobin (Bld) [Mass/Vol] 11.9 g/dL Critically low 12.0-16.0 [facility] Comment on above: Performed By: #### C BC ####[facility] [address] [place] [address]Dr. Bhavani Barragan IG # 0.74 10e3/ul Critically high 0.00-0.03 [facility] Comment on above: Performed By: #### C BC ####[facility] [address] [place] [address]Dr. Bhavani Barragan IG % 2.2 % Critically high 0.0-0.5 The [facility] Comment on above: Performed By: #### C BC ####[facility] [address] [place] [address]Dr. Bhavani Barragan LYMPH # 0.9 103/ul Critically low 1.2-3.8 The [facility] Comment on above: Performed By: #### C BC ####[facility] [address] [place] [address]Dr. Bhavani Barragan Lymphocytes/100 WBC (Bld) 2.7 % Critically low 20.5-60.0 The [facility] Comment on above: Performed By: #### C BC ####[facility] [address] [place] [address]Dr. Bhavani Barragan MANUAL DIFF REQ NO Normal The [facility] Comment on above: Performed By: #### C BC ####[facility] [address] [place] [address]Dr. Bhavani Barragan MCH (RBC) [Entitic mass] 29.8 pg Normal 26.7-34.0 The [facility] Comment on above: Performed By: #### C BC ####[facility] [address] [place] [id number]. Bhavani Barragan MCHC (RBC) [Mass/Vol] 30.5 g/dL Normal 29.9-35.2 The [facility] Comment on above: Performed By: #### C BC ####[facility] [address] [place] [id number]. Bhavani Barragan MCV (RBC) [Entitic vol] 97.5 fL Normal 81.0-99.0 The [facility] Comment on above: Performed By: #### C BC ####[facility] [address] [place] [address]Dr. Bhavani Barragan MONO # 0.6 103/ul Normal 0.3-0.8 The [facility] Comment on above: Performed By: #### C BC ####[facility] [address] [place] [address]Dr. Bhavani Laurel Monocytes/100 WBC (Bld) 1.7 % Normal 1.7-12.0 The [facility] Comment on above: Performed By: #### C BC ####[facility] [address] [place] [id number]. Bhavani Barragan NEUT # 30.7 103/ul Critically high 1.4-6.5 The [facility] Comment on above: Performed By: #### C BC ####[facility] [address] [place] [id number]. Bhavani Laurel Neutrophils/100 WBC (Bld) 92.7 % Critically high 43.0-75.0 The [facility] Comment on above: Performed By: #### C BC ####[facility] [address] [place] [id number]. Bhavani Laurel Platelet mean volume (Bld) [Entitic vol] 9.8 fL Normal 9.5-13.5 The [facility] Comment on above: Performed By: #### C BC ####[facility] [address] [place], [place] [address]Ua. Bhavani Barragan PLT 372 103/ul Normal 150-450 The [facility] Comment on above: Performed By: #### C BC ####[facility] [address] [place], [place] [address]Jb. Bhavani Barragan RBC 4.00 106/ul Critically low 4.20-5.40 The [facility] Comment on above: Performed By: #### C BC ####[facility] [address] [place], [place] [address]Sq. Bhavani Barragan WBC 33.2 103/ul Critically high 4.0-11.0 The [facility] Comment on above: Performed By: #### C BC ####[facility] [address] [place], [place] [address]Aq. Bhavani Barragan CBC W/DIFFon 04-01-2022 ABS IMM GRANS 0.7 10*3/uL High 0.0-0.2 [facility] Comment on above: Order Comment: No: D o not add to previous draw Performed By: #### 8 5499 #### [facility] [address] [place] [address], [facility] ABS NEUTROPHILS 30.0 10*3/uL High 1.6-7.6 The [facility] [place] Comment on above: Order Comment: No: D o not add to previous draw Performed By: #### 8 5499 #### [facility] [address] [place] [address], [facility] Basophils (Bld) [#/Vol] 0.2 10*3/uL Normal 0.0-0.2 [facility] Comment on above: Order Comment: No: D o not add to previous draw Performed By: #### 8 5499 #### [facility] [address] [place] [address], [facility] Basophils/100 WBC (Bld) 0.5 % Normal 0.0-1.0 [facility] Comment on above: Order Comment: No: D o not add to previous draw Performed By: #### 8 5499 #### [facility] [address] [place] [address], [facility] Eosinophils (Bld) [#/Vol] 0.0 10*3/uL Normal 0.0-0.5 [facility] Comment on above: Order Comment: No: D o not add to previous draw Performed By: #### 8 5499 #### [facility] [address] [place] [address], [facility] Eosinophils/100 WBC (Bld) 0.1 % Normal 0.0-6.0 [facility] Comment on above: Order Comment: No: D o not add to previous draw Performed By: #### 8 5499 #### [facility] [address] [place] [address], [facility] Erythrocyte distribution width (RBC) [Ratio] 18.3 % High 11.5-15.0 [facility] Comment on above: Order Comment: No: D o not add to previous draw Performed By: #### 8 5499 #### [facility] [address] [place] [address], [facility] Hematocrit (Bld) [Volume fraction] 40.4 % Normal 36.0-45.0 [facility] Comment on above: Order Comment: No: D o not add to previous draw Performed By: #### 8 5499 #### [facility] [address] [place] [address], [facility] Hemoglobin (Bld) [Mass/Vol] 12.9 g/dL Normal 12.0-15.0 [facility] Comment on above: Order Comment: No: D o not add to previous draw Performed By: #### 8 5499 #### [facility] [address] [place] [address], [facility] IMMATURE GRANS 2.1 % High 0.0-1.0 [facility] Comment on above: Order Comment: No: D o not add to previous draw Performed By: #### 8 5499 #### [facility] [address] [place] [address], [facility] Lymphocytes (Bld) [#/Vol] 0.8 10*3/uL Low 1.2-4.0 [facility] Comment on above: Order Comment: No: D o not add to previous draw Performed By: #### 8 5499 #### [facility] [address] [place] [address], [facility] Lymphocytes/100 WBC (Bld) 2.6 % Low 20.0-45.0 [facility] Comment on above: Order Comment: No: D o not add to previous draw Performed By: #### 8 [id number] #### [facility] [address] [facility] [place] [address], [facility] MCH (RBC) [Entitic mass] 30.6 pg Normal 27.0-33.0 [facility] Comment on above: Order Comment: No: D o not add to previous draw Performed By: #### 8 [id number] #### [facility] [address] [facility] [place] [address], [facility] MCHC (RBC) [Mass/Vol] 31.9 g/dL Low 32.0-35.0 [facility] Comment on above: Order Comment: No: D o not add to previous draw Performed By: #### 8 [id number] #### [facility] [address] [facility] [place] [address], [facility] MCV (RBC) [Entitic vol] 96.0 fL Normal 82.0-98.0 [facility] Comment on above: Order Comment: No: D o not add to previous draw Performed By: #### 8 [id number] #### [facility] [address] [place] [address], [facility] Monocytes (Bld) [#/Vol] 0.5 10*3/uL Normal 0.1-1.0 [facility] Comment on above: Order Comment: No: D o not add to previous draw Performed By: #### 8 [id number] #### [facility] [address] [place] [address], [facility] MONOS 1.7 % Low 5.0-12.0 [facility] Comment on above: Order Comment: No: D o not add to previous draw Performed By: #### 8 5499 #### [facility] [address] [place] [address], [place] Neutrophils/100 WBC (Bld) 93.0 % High 40.0-72.0 [facility] Comment on above: Order Comment: No: D o not add to previous draw Performed By: #### 8 [id number] #### [facility] [address] [place] [address], [place] Nucleated RBC/100 WBC (Bld) [Ratio] 0 % Normal 0-0 [facility] Comment on above: Order Comment: No: D o not add to previous draw Performed By: #### 8 [id number] #### [facility] [address] [place] [address], [place] PLAT CNT 375 10*3/uL Normal 150-400 The [facility] Comment on above: Order Comment: No: D o not add to previous draw Performed By: #### 8 [id number] #### [facility] [address] [place] [address], [place] RBC (Bld) [#/Vol] 4.21 10*6/uL Normal 3.80-5.00 The [facility] Comment on above: Order Comment: No: D o not add to previous draw Performed By: #### 8 5499 #### [facility] [address] [place] [address], [place] WBC (Bld) [#/Vol] 32.19 10*3/uL High 4.00-10.60 [facility] Comment on above: Order Comment: No: D o not add to previous draw Performed By: #### 8 5499 #### [facility] [address] [place] [address], [place] COMP METABOLIC PANELon 04-01 Albumin [Mass/Vol] 3.1 g/dL Low 3.5-5.7 The [facility] Comment on above: Order Comment: No: D o not add to previous draw Performed By: #### 2 2706 #### [facility] [address] [place] [address], [place] ALKALINE PHOSPH 208 IU/L High 34-104 The [facility] Comment on above: Order Comment: No: D o not add to previous draw Performed By: #### 2 2706 #### [facility] [address] [place] [address], [place] ALT [Catalytic activity/Vol] 27 U/L Normal 7-52 [facility] Comment on above: Order Comment: No: D o not add to previous draw Performed By: #### 2 2706 #### [facility] [address] [place] [address], [place] AST [Catalytic activity/Vol] 12 U/L Low 13-39 [facility] Comment on above: Order Comment: No: D o not add to previous draw Performed By: #### 2 2706 #### [facility] [address] [place] [address], [place] Bilirubin [Mass/Vol] 1.8 mg/dL High 0.3-1.0 [facility] Comment on above: Order Comment: No: D o not add to previous draw Performed By: #### 2 2706 #### [facility] [address] [place] [address], [place] Calcium [Mass/Vol] 8.3 mg/dL Low 8.6-10.3 The [facility] Comment on above: Order Comment: No: D o not add to previous draw Performed By: #### 2 2706 #### [facility] [address] [place] [address], [facility] Chloride [Moles/Vol] 103 mmol/L Normal 98-107 [facility] Comment on above: Order Comment: No: D o not add to previous draw Performed By: #### 2 2706 #### [facility] [address] [place] [address], [facility] CO2 [Moles/Vol] 20 mmol/L Low 21-[address] [facility] Comment on above: Order Comment: No: D o not add to previous draw Performed By: #### 2 2706 #### [facility] [address] [place] [address], [facility] Creatinine [Mass/Vol] 1.12 mg/dL Normal 0.60-1.20 [facility] Comment on above: Order Comment: No: D o not add to previous draw Performed By: #### 2 2706 #### [facility] [address] [place] [address], [facility] eGFR- 56 ml/min/1.73sq m Abnormal >60 The [facility] Comment on above: Order Comment: No: D o not add to previous draw Result Comment: Calc ulation may not be valid for patients over 70 years Performed By: #### 2 2706 #### [facility] [address] [place] [address], [facility] eGFR- non- 47 ml/min/1.73sq m Abnormal >60 [facility] Comment on above: Order Comment: No: D o not add to previous draw Result Comment: Calc ulation may not be valid for patients over 70 years Performed By: #### 2 2706 #### [facility] [address] [place] [id number], [facility] Glucose [Mass/Vol] 110 mg/dL High 70-100 [facility] Comment on above: Order Comment: No: D o not add to previous draw Performed By: #### 2 2706 #### [facility] [address] [place] [address], [facility] Potassium [Moles/Vol] 4.1 mmol/L Normal 3.5-5.1 [facility] Comment on above: Order Comment: No: D o not add to previous draw Performed By: #### 2 2706 #### [facility] [address] [place] [address], [facility] Protein [Mass/Vol] 6.1 g/dL Normal 6.0-8.3 [facility] Comment on above: Order Comment: No: D o not add to previous draw Performed By: #### 2 2706 #### [facility] [address] [place] [address], [facility] Sodium [Moles/Vol] 134 mmol/L Low 136-145 The [facility] Comment on above: Order Comment: No: D o not add to previous draw Performed By: #### 2 2706 #### [facility] [address] [place] [address], [facility] Urea nitrogen [Mass/Vol] 21 mg/dL Normal 7-25 [facility] Comment on above: Order Comment: No: D o not add to previous draw Performed By: #### 2 2706 #### [facility] [address] [place] [id number], [facility] DIGOXINon 04-01-2022 Digoxin [Mass/Vol] 0.6 ng/mL Low 0.7-2.0 The [facility] Comment on above: Performed By: #### 2 2706 #### [facility] [address] [place] [address], [facility] DIRECT BILIon 04-01-2022 Bilirubin.direct [Mass/Vol] 0.7 mg/dL High 0.0-0.2 [facility] Comment on above: Order Comment: No: D o not add to previous draw Performed By: #### 2 2706 #### [facility] [address] [place] [address], [facility] LIPASEon 04-01-2022 Lipase [Catalytic activity/Vol] 2234.0 U/L Critically high 73.0-393.0 [facility] Comment on above: Performed By: #### L IPA, CMP ####[facility] [address] [place] [id number]. Bhavani Barragan LIPASE BLOODon 04-01-2022 LIPASE 354 Units/L High 11-82 The [facility] Comment on above: Order Comment: No: D o not add to previous draw Performed By: #### 2 2706 #### [facility] [address] [facility] [place] [address], [facility] POC GLUCOSE LABon 04-01-2022 Glucose [Mass/Vol] 114 mg/dL High 70-100 The [facility] Comment on above: Performed By: #### 8 5499 #### [facility] [address] [facility] [place] [address], [facility] Glucose [Mass/Vol] 113 mg/dL High 70-100 The [facility] Comment on above: Performed By: #### 8 5499 #### [facility] [address] [facility] [place] [address], [facility] Glucose [Mass/Vol] 101 mg/dL High 70-100 The [facility] Comment on above: Performed By: #### 3 0313 #### [facility] [address] [facility] [place] [address], [facility] PROF 14(COMP METB)on 022 Albumin [Mass/Vol] 2.0 g/dL Critically low 3.4-5.0 Th [facility] Comment on above: Performed By: #### L IPA, CMP ####[facility] Z[address]ixo[address] [place] [address]Dr. Jayceeroxi Barragan Albumin/Globulin [Mass ratio] 0.5 {ratio} Normal The [facility] Comment on above: Performed By: #### L IPA, CMP ####[facility] Pdshjzuvfr0316 [place] [id number]. Bhavani Barragan ALP [Catalytic activity/Vol] 247 U/L Critically high 46-116 [facility] Comment on above: Performed By: #### L IPA, CMP ####[facility] Ezstsnzvhv3916 [place] [id number]. Bhavani Barragan ALT [Catalytic activity/Vol] 50 U/L Normal 14-59 [facility] Comment on above: Performed By: #### L IPA, CMP ####[facility] Pikwzxzqiv55[address] [place] [id number]. Bhavani Barragan Anion gap [Moles/Vol] 11.2 mmol/L Normal [facility] Comment on above: Performed By: #### L IPA, CMP ####[facility] E[address]omq[address] [place], [place] [address]Dr. Bhavani Barragan AST [Catalytic activity/Vol] 19 U/L Normal 15-37 [facility] Comment on above: Performed By: #### L IPA, CMP ####[facility] [address] [place], [place] [id number]. Bhavani Barragan Bilirubin [Mass/Vol] 1.5 mg/dL Critically high 0.2-1.0 [facility] Comment on above: Performed By: #### L IPA, CMP ####[facility] Mzdatnozzi23[address] [place] [id number]. Bhavani Barragan Calcium [Mass/Vol] 8.1 mg/dL Critically low 8.5-10.1 Th [facility] Comment on above: Performed By: #### L IPA, CMP ####[facility] Hfqpccbqvn9023 [place] [id number]. Jayceeroxi Barragan Chloride [Moles/Vol] 105 mmol/L Normal 98-107 [facility] Comment on above: Performed By: #### L IPA, CMP ####[facility] [address] [place], [place] [id number]. Bhavani Barragan CO2 [Moles/Vol] 25.1 mmol/L Normal 21.0-32.0 [facility] Comment on above: Performed By: #### L IPA, CMP ####[facility] Dtvctyxetc86[address] [place] [address]Dr. Bhavani Barragan Creatinine [Mass/Vol] 1.39 mg/dL Critically high 0.55-1.02 [facility] Comment on above: Performed By: #### L IPA, CMP ####[facility] Gxbzjwdadd57[address] [place] [address]Dr. Bhavani Barragan EGFR-AF BENINESE 44 mL/min/1.73m2 Critically low >=60 [facility] Comment on above: Performed By: #### L IPA, CMP ####[facility] Gtdbmbwykl0497 [place] [address]Dr. Bhavani Barragan EGFR-NON AF BENINESE 36 mL/min/1.73m2 Critically low >=60 [facility] Comment on above: Performed By: #### L IPA, CMP ####[facility] F[address] [place], [place] [address]Dr. Bhavani Laurel Globulin (S) [Mass/Vol] 4.3 g/dL Normal [facility] Comment on above: Performed By: #### L IPA, CMP ####[facility] Xtenm[address]fh[address] [place], [place] [address]Dr. Bhavani Barragan Glucose [Mass/Vol] 113 mg/dL Critically high 74-106 T [facility] Comment on above: Performed By: #### L IPA, CMP ####[facility] Pcltykteft2573 [place] [address]Dr. Bhavani Barragan Potassium [Moles/Vol] 4.3 mmol/L Normal 3.5-5.1 [facility] Comment on above: Performed By: #### L IPA, CMP ####[facility] Xggamsdanj9922 [place] [address]Dr. Bhavani Laurel Protein [Mass/Vol] 6.3 g/dL Critically low 6.4-8.2 Th [facility] Comment on above: Performed By: #### L IPA, CMP ####[facility] Wvfcauhpgh1324 [place] [address]Dr. Bhavani Barragan Sodium [Moles/Vol] 137 mmol/L Normal 136-145 [facility] Comment on above: Performed By: #### L IPA, CMP ####[facility] [address]zp[address] [place], [place] [address]Dr. Bhavani Barragan Urea nitrogen [Mass/Vol] 26.0 mg/dL Critically high 7.0-18.0 [facility] Comment on above: Performed By: #### L IPA, CMP ####[facility] Azavzoenpi[address] [place], [place] [address]Dr. Bhavani Barragan Urea nitrogen/Creatinine [Mass ratio] 18.7 mg/mg Normal [facility] Comment on above: Performed By: #### L IPA, CMP ####[facility] W[address] [place], [place] [address]Dr. Bhavani Barragan PROTIMEon 04-01-2022 INR Coag (PPP) [Relative time] 1.14 {INR} Normal [facility] Comment on above: Performed By: #### P TT, PT ####[facility] [address] [place], [place] [address]Dr. Bhavani Barragan INR GUIDELINES SEE BELOW Normal The [facility] Comment on above: Result Comment: WALKER RED INR: 2.0 - 3.0 CONDITIONS NOT LISTED BELOW 2.5 - 3.5 FOR PROSTHETIC HEART VALVE REPLACEMENT 2.5 - 3.5 RECURRENT THROMBOSIS Performed By: #### P TT, PT ####[facility] Lpcngwgj[address] [place], [place] [address]Dr. Bhavani Barragan PT Coag (PPP) [Time] 12.2 s Critically high 9.0-11.6 [facility] Comment on above: Performed By: #### P TT, PT ####[facility] X[address] [place], [place] [address]Dr. Bhavani Barragan PTTon 04-01-2022 aPTT Coag (Bld) [Time] 25.4 s Normal 22.3-36.2 [facility] Comment on above: Performed By: #### P TT, PT ####[facility] Oq[address] [place], [place] [address]Dr. Bhavani Barragan TROPONIN-Ion 05-15-2022 Troponin I.cardiac [Mass/Vol] 0.02 ng/mL Normal 0.00-0.04 [facility] Comment on above: Result Comment: REFE RENCE RANGES: 0.00 - 0.04 ng/ml NORMAL 0.05 - 0.50 ng/ml INDETERMINATE > 0.50 ng/ml CONSISTENT WITH AN M.I. Performed By: #### 2 2706 #### [facility] [address] UFH HEPARIN ASSAYon 04-01-20 UNFRACTIONATED HEPARIN >1.00 Critically high 0.30-0.70 [facility] Comment on above: Result Comment: Resu lt checked and called. Accurately read back by EYAL GRIFFIN RN ON 04/01/2022 AT 22:07 Rivaroxaban and Apixaban will interfere with the anti Xa assay used to monitor UFH and LMWH. Performed By: #### 8 5499 #### [facility] [address] UNFRACTIONATED HEPARIN >1.00 Critically high 0.30-0.70 [facility] Comment on above: Result Comment: Resu lt checked and called. Accurately read back by YANICK MICHAELS RN ON 04/01/2022 AT 16:07 Rivaroxaban and Apixaban will interfere with the anti Xa assay used to monitor UFH and LMWH. Performed By: #### 8 [id number] #### [facility] [address] [place] [address], [facility] AMMONIAon 03-31-2022 Ammonia (P) [Mass/Vol] ug/dL Critically low 11-32 [facility] Comment on above: Performed By: #### A MM ####[facility] [address] [place] [address]DrLydia Barragan CBC AUTO DIFFon 03-31-2022 BASO # 0.1 103/ul Normal 0.0-0.1 [facility] Comment on above: Performed By: #### C BC ####[facility] [address] [place] [address]DrLydia Beckham Barragan Basophils/100 WBC (Bld) 0.4 % Normal 0.2-2.0 The [facility] Comment on above: Performed By: #### C BC ####[facility] [address]dskp4[address] [place] [address]Dr. Bhavani Barragan EO # 0.0 103/ul Normal 0.0-0.7 The [facility] Comment on above: Performed By: #### C BC ####[facility] Xjq[address]btkt8658 [place] [address]Dr. Bhavani Barragan Eosinophils/100 WBC (Bld) 0.1 % Critically low 0.9-7.0 The [facility] Comment on above: Performed By: #### C BC ####[facility] [address] [place], [place] [address]Dr. Bhavani Barragan Erythrocyte distribution width (RBC) [Ratio] 17.7 % Critically high 11.0-15.0 The [facility] Comment on above: Performed By: #### C BC ####[facility] N[address]ts[address] [place], [place] [address]Dr. Bhavani Barragan Hematocrit (Bld) [Volume fraction] 36.5 % Normal 36.0-48.0 The [facility] Comment on above: Performed By: #### C BC ####[facility] [address] [place], [place] [address]Dr. Bhavani Barragan Hemoglobin (Bld) [Mass/Vol] 11.5 g/dL Critically low 12.0-16.0 The [facility] Comment on above: Performed By: #### C BC ####[facility] [address] [place], [place] [address]Dr. Bhavani Barragan IG # 0.38 10e3/ul Critically high 0.00-0.03 The [facility] Comment on above: Performed By: #### C BC ####[facility] [address]ltmnz[address] [place] [address]Dr. Bhavani Barragan IG % 1.2 % Critically high 0.0-0.5 The [facility] Comment on above: Performed By: #### C BC ####[facility] [address] [place] [id number]. Bhavani Laurel LYMPH # 0.7 103/ul Critically low 1.2-3.8 The [facility] Comment on above: Performed By: #### C BC ####[facility] Aoisuhjoeg[address] [place] [id number]. Bhavani Laurel Lymphocytes/100 WBC (Bld) 2.4 % Critically low 20.5-60.0 The [facility] Comment on above: Performed By: #### C BC ####[facility] [address]az[address]vg[address] [place] [id number]. Jayceeroxi Barragan MANUAL DIFF REQ NO Normal The [facility] Comment on above: Performed By: #### C BC ####[facility] Avmbbspjfq[address] [place] [address]Dr. Bhavani Laurel MCH (RBC) [Entitic mass] 30.3 pg Normal 26.7-34.0 The [facility] Comment on above: Performed By: #### C BC ####[facility] E[address] [place], [place] [address]Dr. Bhavani Laurel MCHC (RBC) [Mass/Vol] 31.5 g/dL Normal 29.9-35.2 The [facility] Comment on above: Performed By: #### C BC ####[facility] Kp[address]wxbtip40[address] [place] [id number]. Bhavani Laurel MCV (RBC) [Entitic vol] 96.3 fL Normal 81.0-99.0 The [facility] Comment on above: Performed By: #### C BC ####[facility] [address]ij[address]jfm[address] [place] [id number]. Bhavani Laurel MONO # 0.8 103/ul Normal 0.3-0.8 The [facility] Comment on above: Performed By: #### C BC ####[facility] Agiv[address]jncyj[address] [place] [id number]. Jayceeroxi Barragan Monocytes/100 WBC (Bld) 2.5 % Normal 1.7-12.0 The [facility] Comment on above: Performed By: #### C BC ####[facility] Cgvgairtnv8[address] [place] [id number]. Bhavani Barragan NEUT # 29.0 103/ul Critically high 1.4-6.5 The [facility] Comment on above: Performed By: #### C BC ####[facility] A[address]uvwddal30[address] [place] [id number]. Bhavani Barragan Neutrophils/100 WBC (Bld) 93.4 % Critically high 43.0-75.0 The [facility] Comment on above: Performed By: #### C BC ####[facility] Twhrrjbolc[address] [place] [phone]. Bhavani Barragan Platelet mean volume (Bld) [Entitic vol] 10.5 fL Normal 9.5-13.5 The [facility] Comment on above: Performed By: #### C BC ####[facility] Encylqeoed[address] [place] [id number]. Bhavani Barragan PLT 346 103/ul Normal 150-450 The [facility] Comment on above: Performed By: #### C BC ####[facility] Pyeaiwkenq29[address] [place] [id number]. Bhavani Barragan RBC 3.79 106/ul Critically low 4.20-5.40 The [facility] Comment on above: Performed By: #### C BC ####[facility] Parhmmvazq4[address] [place] [id number]. Bhavani Barragan WBC 31.0 103/ul Critically high 4.0-11.0 The [facility] Comment on above: Performed By: #### C BC ####[facility] Mtvoixckyg[address] [place] [phone]. Bhavani Barragan CT CHEST WO CONon 03-31-2022 CT CHEST WO CON Normal The [facility] LIPASEon 03-31-2022 Lipase [Catalytic activity/Vol] 3577.0 U/L Critically high 73.0-393.0 The [facility] Comment on above: Performed By: #### L IPA ####[facility] [address]swiaju[address] [place] [id number]. Bhavani Barragan MRI ABDOMEN WO CONon 022 MRI ABDOMEN WO CON Normal The [facility] POINT OF CARE GLUCOSEon 03-18 Glucose [Mass/Vol] 153 mg/dL Critically high 74-106 [facility] Comment on above: Performed By: #### P OCGLUC ####[facility] [address]ot[address]zryhs24[address] [place] [address]Dr. Bhavani Barragan Glucose [Mass/Vol] 158 mg/dL Critically high 74-106 [facility] Comment on above: Performed By: #### P OCGLUC ####[facility] [address]ghvwkxy40[address] [place] [address]Dr. Bhavani Barragan Glucose [Mass/Vol] 120 mg/dL Critically high 74-106 [facility] Comment on above: Performed By: #### P OCGLUC ####[facility] Qhazodtwjc7243 [place] [address]Dr. Jayceeroxi Barragan Glucose [Mass/Vol] 74 mg/dL Normal 74-106 [facility] Comment on above: Performed By: #### P OCGLUC ####[facility] Exyvbznlfd9[address] [place] [address]Dr. Bhavani Barragan PROF 14(COMP METB)on 022 Albumin [Mass/Vol] 1.9 g/dL Critically low 3.4-5.0 Th [facility] Comment on above: Performed By: #### C MP ####[facility] Zlsgrvsrtv7074 [place] [address]Dr. Bhavani Barragan Albumin/Globulin [Mass ratio] 0.5 {ratio} Normal [facility] Comment on above: Performed By: #### C MP ####[facility] Dnhnloowmd8503 [place] [address]Dr. Bhavani Barragan ALP [Catalytic activity/Vol] 283 U/L Critically high 46-116 [facility] Comment on above: Performed By: #### C MP ####[facility] Avaawkdhri7[address] [place] [address]Dr. Bhavani Barragan ALT [Catalytic activity/Vol] 64 U/L Critically high 14-59 [facility] Comment on above: Performed By: #### C MP ####[facility] Rgnutonbci7875 [place] [address]Dr. Bhavani Barragan Anion gap [Moles/Vol] 11.6 mmol/L Normal [facility] Comment on above: Performed By: #### C MP ####[facility] Gfsmodsuxe3974 [place] [address]Dr. Bhavani Barragan AST [Catalytic activity/Vol] 52 U/L Critically high 15-37 The [facility] Comment on above: Performed By: #### C MP ####[facility] Hzzilgsozh39[address] [place] [address]Dr. Bhavani Barragan Bilirubin [Mass/Vol] 2.8 mg/dL Critically high 0.2-1.0 The [facility] Comment on above: Performed By: #### C MP ####[facility] Ycohajahyf[address] [place], [place] [address]Dr. Bhavani Barragan Calcium [Mass/Vol] 7.9 mg/dL Critically low 8.5-10.1 Th [facility] Comment on above: Performed By: #### C MP ####[facility] [address] [place], [place] [address]Dr. Bhavani Laurel Chloride [Moles/Vol] 102 mmol/L Normal 98-107 The [facility] Comment on above: Performed By: #### C MP ####[facility] [address]opmtbdmwj[address] [place], [place] [address]Dr. Bhavani Barragan CO2 [Moles/Vol] 27.4 mmol/L Normal 21.0-32.0 The [facility] Comment on above: Performed By: #### C MP ####[facility] Byoxoamjjk[address] [place], [place] [address]Dr. Bhavani Laurel Creatinine [Mass/Vol] 1.48 mg/dL Critically high 0.55-1.02 [facility] Comment on above: Performed By: #### C MP ####[facility] [address]krppuh[address] [place], [place] [address]Dr. Bhavani Laurel EGFR-AF BENINESE 41 mL/min/1.73m2 Critically low >=60 The [facility] Comment on above: Performed By: #### C MP ####[facility] [address]wmxcfynv23[address] [place] [id number]. Bhavani Barragan EGFR-NON AF BENINESE 34 mL/min/1.73m2 Critically low >=60 [facility] Comment on above: Performed By: #### C MP ####[facility] Kxwerugudn0675 [place] [address]Dr. Bhavani Barragan Globulin (S) [Mass/Vol] 4.0 g/dL Normal [facility] Comment on above: Performed By: #### C MP ####[facility] Qyttekpimr4528 [place] [address]Dr. Bhavani Barragan Glucose [Mass/Vol] 84 mg/dL Normal 74-106 [facility] Comment on above: Performed By: #### C MP ####[facility] [address]jf[address] [place] [place] [address]Dr. Bhavani Barragan Potassium [Moles/Vol] 4.0 mmol/L Normal 3.5-5.1 [facility] Comment on above: Performed By: #### C MP ####[facility] Updeajfaiu7036 [place] [address]Dr. Bhavani Barragan Protein [Mass/Vol] 5.9 g/dL Critically low 6.4-8.2 Th [facility] Comment on above: Performed By: #### C MP ####[facility] Ubkadwmoqq8539 [place] [address]Dr. Bhavani Barragan Sodium [Moles/Vol] 137 mmol/L Normal 136-145 [facility] Comment on above: Performed By: #### C MP ####[facility] Coyqvutvfc6260 [place] [address]Dr. Bhavani Barragan Urea nitrogen [Mass/Vol] 26.0 mg/dL Critically high 7.0-18.0 The [facility] Comment on above: Performed By: #### C MP ####[facility] Pgvxaurgzq2225 [place] [address]Dr. Bhavani Barragan Urea nitrogen/Creatinine [Mass ratio] 17.6 mg/mg Normal [facility] Comment on above: Performed By: #### C MP ####[facility] Eclwmhrrce5525 [place] [address]Dr. Bhavani Barragan PROTIMEon 03-31-2022 INR Coag (PPP) [Relative time] 1.34 {INR} Normal The [facility] Comment on above: Performed By: #### P T, PTT ####[facility] Ytoiuqinio[address] [place], [place] [address]Dr. Bhavani Barragan INR GUIDELINES SEE BELOW Normal The [facility] Comment on above: Result Comment: WALKER RED INR: 2.0 - 3.0 CONDITIONS NOT LISTED BELOW 2.5 - 3.5 FOR PROSTHETIC HEART VALVE REPLACEMENT 2.5 - 3.5 RECURRENT THROMBOSIS Performed By: #### P T, PTT ####[facility] Qfwoplayhg7367[address] [place], [place] [address]Dr. Bhavani Barragan PT Coag (PPP) [Time] 14.2 s Critically high 9.0-11.6 The [facility] Comment on above: Performed By: #### P T, PTT ####[facility] Nxgyxgodtd8[address] [place], [place] [address]Dr. Bhavani Barragan PTTon 03-31-2022 aPTT Coag (Bld) [Time] 37.6 s Critically high 22.3-36.2 The [facility] Comment on above: Performed By: #### P T, PTT ####[facility] Uuocnwymuw80[address] [place], [place] [address]Dr. Bhavani Barragan XR CHEST 1 Von 03-31-2022 XR CHEST 1 V Normal The [facility] AMMONIAon 03-30-2022 Ammonia (P) [Moles/Vol] 30 umol/L Normal -32 The [facility] Comment on above: Performed By: #### A MM ####[facility] Sufbwalxqk[address] [place], [place] [address]Dr. Bhavani Barragan CBC W MANUAL DIFFon 03-30-20 22 ATYPICAL LYMPH # Normal The [facility] Comment on above: Performed By: #### C OMID ####[facility] Ytfxrpfpne95[address] [place], [place] [address]Dr. Bhavani Barragan ATYPICAL LYMPH % Normal [facility] Comment on above: Performed By: #### C BCJERSON ####[facility] Jcbonyxcha5189 [place] [id number]. Yilan Barragan BAND # Normal 0.0-0.3 The [facility] Comment on above: Performed By: #### C OMID ####[facility] Bqjmjnoyuq3842 [place] [address]Dr. Yilan Barragan BAND % Normal 0-5 The [facility] Comment on above: Performed By: #### C OMID ####[facility] Hbazsmbwpk7229 [place] [address]Dr. Yilan Barragan BASOM # 0.00 103/ul Normal 0.00-0.10 The [facility] Comment on above: Performed By: #### C OMID ####[facility] Wwdviaimln2384 [place] [address]Dr. Yilan Barragan BASOM % 0.0 % Critically low 0.2-2.0 The [facility] Comment on above: Performed By: #### C OMID ####[facility] Gyfnfqdexk5288 [place] [address]Dr. Yilan Barragan BLAST # Normal The [facility] Comment on above: Performed By: #### C OMID ####[facility] Jujefjllia8[address] [place], [place] [address]Dr. Yilan Barragan BLAST % Normal The [facility] Comment on above: Performed By: #### C MOID ####[facility] Aqkcqfazyj5[address] [place], [place] [address]Dr. Yilan Barragan CORRECTED WBC Normal 4.0-11.0 The [facility] Comment on above: Performed By: #### C OMID ####[facility] Vekylehpmz5072 [place] [address]Dr. Yilan Barragan EOS # 0.00 103/ul Normal 0.00-0.70 The [facility] Comment on above: Performed By: #### C OMID ####[facility] Pfhkxuiliy9219 [place] [address]Dr. Yilan Barragan EOS% 0.0 % Critically low 0.9-7.0 The [facility] Comment on above: Performed By: #### C OMID ####[facility] Pmszpqgtxd7165 [place], [place] [address]Yd. Bhavani Barragan HCT 39.8 % Normal 36.0-48.0 The [facility] Comment on above: Performed By: #### C OMID ####[facility] Ojjpzngdzs2828 [place], [place] [address]Fh. Bhavani Barragan HGB 12.2 g/dl Normal 12.0-16.0 The [facility] Comment on above: Performed By: #### C OMID ####[facility] Koriwyajxz3630 [place], [place] [address]Zj. Bhavani Barragan LYMPHM # 0.56 103/ul Critically low 1.20-3.80 The [facility] Comment on above: Performed By: #### C OMID ####[facility] Rfgpmtseor6420 [place], [place] [address]Vf. Bhavani Barragan LYMPHM% 2.0 % Critically low 20.5-60.0 The [facility] Comment on above: Performed By: #### C OMID ####[facility] Hzgtrjuqar0176 [place], [place] [address]Qj. Bhavani Barragan MCH 29.7 pg Normal 26.7-34.0 The [facility] Comment on above: Performed By: #### C OMID ####[facility] Nkwxlsanxm6395 [place], [place] [address]Ue. Bhavani Barragan MCHC 30.7 g/dl Normal 29.9-35.2 The [facility] Comment on above: Performed By: #### C OMID ####[facility] Nbyegfbogh9273 [place], [place] [address]Bh. Bhavani Barragan MCV 96.8 fL Normal 81.0-99.0 The [facility] Comment on above: Performed By: #### C OMID ####[facility] Bniaruuset7271 [place], [place] [address]Jd. Bhavani Barragan METAMYELOCYTE # Normal The [facility] Comment on above: Performed By: #### C OMID ####[facility] Umhyeoxwnw3565 [place] [id number]. Bhavani Barragan METAMYELOCYTE % Normal The [facility] Comment on above: Performed By: #### C OMID ####[facility] Lyuryxzbti8743 [place] [id number]. Bhavani Barragan MONOM# 0.28 103/ul Critically low 0.30-0.80 [facility] Comment on above: Performed By: #### C OMID ####[facility] Tdojvazaqv5201 [place] [id number]. Bhavani Barragan MONOM% 1.0 % Critically low 1.7-12.0 [facility] Comment on above: Performed By: #### C OMID ####[facility] Xwkxsfseef1262 [place] [id number]. Bhavani Laurel MPV 10.2 fL Normal 9.5-13.5 [facility] Comment on above: Performed By: #### C OMID ####[facility] Espsbjhwrh[address] [place], [place] [address]Dr. Bhavani Laurel MYELOCYTE # Normal The [facility] Comment on above: Performed By: #### C OMID ####[facility] Qddionkxml[address] [place], [place] [address]Dr. Bhavani Laurel MYELOCYTE % Normal The [facility] Comment on above: Performed By: #### C OMID ####[facility] Ydqcdvcwen[address] [place], [place] [address]Dr. Bhavani Barragan NRBC Normal The [facility] Comment on above: Performed By: #### C OMID ####[facility] Dalgsnacaj4124 [place] [id number]. Jayceeroxi Laurel PLT 371 103/ul Normal 150-450 The [facility] Comment on above: Performed By: #### C OMID ####[facility] Znncpvonwr[address] [place], [place] [address]Dr. Bhavani Barragan RBC 4.11 106/ul Critically low 4.20-5.40 [facility] Comment on above: Performed By: #### C OMID ####[facility] Ouuxznhwrl449[address] [place], [place] [address]Dr. Bhavani Barragan RDW 17.4 % Critically high 11.0-15.0 [facility] Comment on above: Performed By: #### C OMID ####[facility] Xviuqlfkxn3536 [place] [id number]. Bhavani Barragan SEG # 27.35 103/ul Critically high 1.40-6.50 [facility] Comment on above: Performed By: #### C BCMAN ####[facility] Ozwaovurgx1420 [place] [id number]. Bhavani Barragan SEG % 97.0 % Critically high 43.0-75.0 [facility] Comment on above: Performed By: #### C OMID ####[facility] Xzevqwdnnd6813 [place] [address]Dr. Bhavani Barragan WBC 28.2 103/ul Critically high 4.0-11.0 [facility] Comment on above: Performed By: #### C OMID ####[facility] Ckwnjxnplz8796 [place] [address]DrLydia Bhavani Laurel POINT OF CARE GLUCOSEon 03-18 Glucose [Mass/Vol] 92 mg/dL Normal 74-106 [facility] Comment on above: Performed By: #### P OCGLUC ####[facility] Sqxmcgoxog9343 [place] [address]Dr. Bhavani Barragan Glucose [Mass/Vol] 122 mg/dL Critically high 74-106 [facility] Comment on above: Result Comment: Foll ow Protocol Performed By: #### P OCGLUC ####[facility] Kjupuclguz6766 [place] [address]Dr. Bhavani Barragan Glucose [Mass/Vol] 107 mg/dL Critically high 74-106 [facility] Comment on above: Performed By: #### P OCGLUC ####[facility] Mderkyppde1330 [place] [address]DrLydia Barragan PROF 14(COMP METB)on 022 Albumin [Mass/Vol] 2.0 g/dL Critically low 3.4-5.0 [facility] Comment on above: Performed By: #### C MP ####[facility] Ofbgkzqcyv4437 [place] [id number]. Bhavani Barragan Albumin/Globulin [Mass ratio] 0.5 {ratio} Normal [facility] Comment on above: Performed By: #### C MP ####[facility] Jihhvrtbxe9865 [place] [id number]. Bhavani Barragan ALP [Catalytic activity/Vol] 298 U/L Critically high 46-116 [facility] Comment on above: Performed By: #### C MP ####[facility] Qcdwqdvlzy5496 [place] [address]Dr. Bhavani Barragan ALT [Catalytic activity/Vol] 94 U/L Critically high 14-59 [facility] Comment on above: Performed By: #### C MP ####[facility] Qjdltznasr25[address] [place], [place] [address]Dr. Bhavani Laurel Anion gap [Moles/Vol] 12.8 mmol/L Normal [facility] Comment on above: Performed By: #### C MP ####[facility] Stisjhppym2884[address] [place], [place] [address]Dr. Bhavani Barragan AST [Catalytic activity/Vol] 73 U/L Critically high 15-37 [facility] Comment on above: Performed By: #### C MP ####[facility] Athinrgigf513[address] [place], [place] [address]Dr. Bhavani Laurel Bilirubin [Mass/Vol] 3.6 mg/dL Critically high 0.2-1.0 [facility] Comment on above: Performed By: #### C MP ####[facility] Wwsgnuxxjt7561 [place] [address]Dr. Bhavani Laurel Calcium [Mass/Vol] 7.8 mg/dL Critically low 8.5-10.1 Th e [facility] Comment on above: Performed By: #### C MP ####[facility] Pynnbelono7[address] [place], [place] [address]Dr. Bhavani Barragan Chloride [Moles/Vol] 103 mmol/L Normal 98-107 The [facility] Comment on above: Performed By: #### C MP ####[facility] Pscafemuqu13[address] [place], [place] [address]Dr. Bhavani Barragan CO2 [Moles/Vol] 25.2 mmol/L Normal 21.0-32.0 [facility] Comment on above: Performed By: #### C MP ####[facility] Mbjyviibdm7551 [place] [address]Dr. Bhavani Barragan Creatinine [Mass/Vol] 1.38 mg/dL Critically high 0.55-1.02 [facility] Comment on above: Performed By: #### C MP ####[facility] Fchfnkvlhm[address] [place], [place] [address]Dr. Bhavani Barragan EGFR-AF BENINESE 44 mL/min/1.73m2 Critically low >=60 [facility] Comment on above: Performed By: #### C MP ####[facility] Lwyfocdsmd[address] [place], [place] [address]Dr. Bhavani Barragan EGFR-NON AF BENINESE 37 mL/min/1.73m2 Critically low >=60 [facility] Comment on above: Performed By: #### C MP ####[facility] Grwopmawvp57[address] [place], [place] [address]Dr. Bhavani Barragan Globulin (S) [Mass/Vol] 4.1 g/dL Normal [facility] Comment on above: Performed By: #### C MP ####[facility] Eetijztaka840567 [address] [place], [place] [address]Dr. Bhavani Barragan Glucose [Mass/Vol] 109 mg/dL Critically high 74-106 T [facility] Comment on above: Performed By: #### C MP ####[facility] Jzuckgsrvw4025[address] [place], [place] [address]Dr. Bhavani Barragan Potassium [Moles/Vol] 4.0 mmol/L Normal 3.5-5.1 [facility] Comment on above: Performed By: #### C MP ####[facility] Uuofdgwueg2437[address] [place], [place] [address]Dr. Bhavani Barragan Protein [Mass/Vol] 6.1 g/dL Critically low 6.4-8.2 Th [facility] Comment on above: Performed By: #### C MP ####[facility] Akisfxcbbc9767 [place] [id number]. Bhavani Barragan Sodium [Moles/Vol] 137 mmol/L Normal 136-145 [facility] Comment on above: Performed By: #### C MP ####[facility] Wzcfjcvuej5916 [place] [address]Dr. Bhavani Barragan Urea nitrogen [Mass/Vol] 22.0 mg/dL Critically high 7.0-18.0 [facility] Comment on above: Performed By: #### C MP ####[facility] Wdebisyxym4159 [place] [address]Dr. Bhavani Barragan Urea nitrogen/Creatinine [Mass ratio] 15.9 mg/mg Normal The [facility] Comment on above: Performed By: #### C MP ####[facility] Vbjbygdblm2577 [place] [address]Dr. Bhavani Barragan PROTIMEon 03-30-2022 INR Coag (PPP) [Relative time] 1.28 {INR} Normal [facility] Comment on above: Performed By: #### P T, PTT ####[facility] Jnmotwdhco05[address] [place], [place] [address]Dr. Bhavani Barragan INR GUIDELINES SEE BELOW Normal The [facility] Comment on above: Result Comment: WALKER RED INR: 2.0 - 3.0 CONDITIONS NOT LISTED BELOW 2.5 - 3.5 FOR PROSTHETIC HEART VALVE REPLACEMENT 2.5 - 3.5 RECURRENT THROMBOSIS Performed By: #### P T, PTT ####[facility] Yhcelawjmi7[address] [place], [place] [address]Dr. Bhavani Barragan PT Coag (PPP) [Time] 13.6 s Critically high 9.0-11.6 The [facility] Comment on above: Performed By: #### P T, PTT ####[facility] Iyoewiflnb6[address] [place], [place] [address]Dr. Bhavani Barragan PTTon 03-30-2022 aPTT Coag (Bld) [Time] 34.9 s Normal 22.3-36.2 [facility] Comment on above: Performed By: #### P T, PTT ####[facility] Yqhsmvwcqc0681 [place] [address]Dr. Bhavani Barragan US SINGLE QUAD RT UPPERon US SINGLE QUAD RT UPPER Normal The [facility] AMMONIAon 03-29-2022 Ammonia (P) [Moles/Vol] 17 umol/L Normal -32 The [facility] Comment on above: Performed By: #### A MM ####[facility] Ibbdxlewil2267[address] [place], [place] [address]Dr. Bhavani Barragan CBC W MANUAL DIFFon 03-29-20 22 ANISOCYTOSIS 2+ Normal [facility] Comment on above: Performed By: #### C BCMAN ####[facility] Obqknvxvtt9[address] [place], [place] [address]Dr. Bhavani Barragan ATYPICAL LYMPH # Normal The [facility] Comment on above: Performed By: #### C BCMAN ####[facility] Tvcmpfrizt37[address] [place], [place] [address]Dr. Bhavani Barragan ATYPICAL LYMPH % Normal [facility] Comment on above: Performed By: #### C BCMAN ####[facility] Lqwwmbzpxb456[address] [place], [place] [address]Dr. Bhavani Barragan BAND # 1.2 103/ul Critically high 0.0-0.3 The [facility] Comment on above: Performed By: #### C BCMAN ####[facility] Ocglzyxyim5265 [place] [address]Dr. Bhavani Barragan BAND % 4 % Normal 0-5 The [facility] Comment on above: Performed By: #### C BCMAN ####[facility] Ywndjhyvkr0704 [place] [address]Dr. Bhavani Barragan BASOM # 0.00 103/ul Normal 0.00-0.10 The [facility] Comment on above: Performed By: #### C BCMAN ####[facility] Fohwygovat8558 [place] [address]Dr. Bhavani Barragan BASOM % 0.0 % Critically low 0.2-2.0 The [facility] Comment on above: Performed By: #### C BCMAN ####[facility] Zflfjtywgh84[address] [place], [place] [address]Dr. Bhavani Barragan BLAST # Normal The [facility] Comment on above: Performed By: #### C OMID ####[facility] Hbodvmoawe4328 [place] [address]Dr. Bhavani Barragan BLAST % Normal The [facility] Comment on above: Performed By: #### C OMID ####[facility] Cbuwdcvfet5129 [place] [address]Dr. Bhavani Barragan CORRECTED WBC Normal 4.0-11.0 The [facility] Comment on above: Performed By: #### C OMID ####[facility] Txucepvxyd4035 [place] [address]Dr. Bhavani Barragan EOS # 0.00 103/ul Normal 0.00-0.70 The [facility] Comment on above: Performed By: #### C OMID ####[facility] Uxuvctnshr[address] [place], [place] [address]Dr. Bhavani Barragan EOS% 0.0 % Critically low 0.9-7.0 [facility] Comment on above: Performed By: #### C OMID ####[facility] Jkedyqgqnt4720 [place] [address]Dr. Bhavani Barragan HCT 41.4 % Normal 36.0-48.0 The [facility] Comment on above: Performed By: #### C OMID ####[facility] Hqsimudnui53[address] [place], [place] [address]Dr. Bhavani Barragan HGB 12.6 g/dl Normal 12.0-16.0 The [facility] Comment on above: Performed By: #### C BCJERSON ####[facility] Ekjtuycqvt14[address] [place], [place] [address]Dr. Bhavani Barragan LYMPHM # 0.62 103/ul Critically low 1.20-3.80 The [facility] Comment on above: Performed By: #### C OMID ####[facility] Voapngogky[address] [place], [place] [address]Dr. Bhavani aBrragan LYMPHM% 2.0 % Critically low 20.5-60.0 The [facility] Comment on above: Performed By: #### C OMID ####[facility] Acjgpmljov9923 [place], [place] [address]Jd. Bhavani Barragan MCH 29.6 pg Normal 26.7-34.0 The [facility] Comment on above: Performed By: #### C OMID ####[facility] Yybbubjwnd5266 [place], [place] [address]Ky. Bhavani Barragan MCHC 30.4 g/dl Normal 29.9-35.2 The [facility] Comment on above: Performed By: #### Jany ANNE ####[facility] Fepbhzjofv7117 [place] [id number]. Bhavani Barragan MCV 97.4 fL Normal 81.0-99.0 The [facility] Comment on above: Performed By: #### Jany ANNE ####[facility] Movsxtlxhi8771 [place] [id number]. Bhavani Barragan METAMYELOCYTE # Normal The [facility] Comment on above: Performed By: #### Jany ANNE ####[facility] Ontqopajsl9957 [place] [id number]. Bhavani Barragan METAMYELOCYTE % Normal The [facility] Comment on above: Performed By: #### Jany ANNE ####[facility] Pmedomixfh3484 [place] [id number]. Bhavani Barragan MONOM# 0.93 103/ul Critically high 0.30-0.80 The [facility] Comment on above: Performed By: #### Jany ANNE ####[facility] Ojyfxqvdpv2889 [place] [id number]. Bhavani Barragan MONOM% 3.0 % Normal 1.7-12.0 The [facility] Comment on above: Performed By: #### Jany ANNE ####[facility] Lfmapnqraj1040 [place] [id number]. Bhavani Barragan MPV 9.7 fL Normal 9.5-13.5 The [facility] Comment on above: Performed By: #### Jany ANNE ####[facility] Gfgnlumrug5658 [place] [id number]. Bhavani Barragan MYELOCYTE # Normal The [facility] Comment on above: Performed By: #### C OMID ####[facility] Heqdmbwlen9125 [place], [place] [address]Nn. Bhavani Barragan MYELOCYTE % Normal The [facility] Comment on above: Performed By: #### C OMID ####[facility] Tlfjwbwawc3857 [place], [place] [address]Zg. Bhavani Barragan NRBC Normal The [facility] Comment on above: Performed By: #### C OMID ####[facility] Unavljihbu8530 [place], [place] [address]Mb. Bhavani Barragan PLT 362 103/ul Normal 150-450 The [facility] Comment on above: Performed By: #### C OMID ####[facility] Dihzolihhj3784 [place] [id number]. Bhavani Barragan RBC 4.25 106/ul Normal 4.20-5.40 The [facility] Comment on above: Performed By: #### C OMID ####[facility] Naedcxestu6652 [place] [id number]. Bhavani Barragan RDW 17.2 % Critically high 11.0-15.0 [facility] Comment on above: Performed By: #### C OMID ####[facility] Wugpheellh[address] [place], [place] [address]Dr. Bhavani Barragan SEG # 28.12 103/ul Critically high 1.40-6.50 [facility] Comment on above: Performed By: #### C OMID ####[facility] Pjmuzsdmpo9214 [place] [id number]. Bhavani Barragan SEG % 91.0 % Critically high 43.0-75.0 The [facility] Comment on above: Performed By: #### C OMID ####[facility] Bxronsjtxp7211 [place] [id number]. Bhavani Barragan WBC 30.9 103/ul Critically high 4.0-11.0 The [facility] Comment on above: Result Comment: repe ated Performed By: #### C OMID ####[facility] Dpksmqgvzx1472 [place] [id number]. Bhavani Barragan CT ABD/PELV W CONon 03-29-[address] ABD/PELV W CON Normal [facility] POINT OF CARE GLUCOSEon 03-18 Glucose [Mass/Vol] 102 mg/dL Normal 74-106 [facility] Comment on above: Performed By: #### P OCGLUC ####[facility] Tvtcfxvclw[address] [place] [id number]. Bhavani Barragan Glucose [Mass/Vol] 100 mg/dL Normal 74-106 [facility] Comment on above: Performed By: #### P OCGLUC ####[facility] Pyhtidpgtp5[address] [place] [address]Dr. Bhavani Barragan Glucose [Mass/Vol] 132 mg/dL Critically high 74-106 [facility] Comment on above: Performed By: #### P OCGLUC ####[facility] Khwqsxvbiy6277 [place] [address]Dr. Bhavani Barragan Glucose [Mass/Vol] 130 mg/dL Critically high 74-106 [facility] Comment on above: Performed By: #### P OCGLUC ####[facility] Fabvodzvpp3461 [place] [address]Dr. Bhavani Barragan PROF 14(COMP METB)on 022 Albumin [Mass/Vol] 2.1 g/dL Critically low 3.4-5.0 Th [facility] Comment on above: Performed By: #### C MP ####[facility] Otrfdszikx[address] [place] [address]Dr. Bhavani Barragan Albumin/Globulin [Mass ratio] 0.6 {ratio} Normal [facility] Comment on above: Performed By: #### C MP ####[facility] Dqyesyxqcc9334 [place] [address]Dr. Bhavani Barragan ALP [Catalytic activity/Vol] 277 U/L Critically high 46-116 [facility] Comment on above: Performed By: #### C MP ####[facility] Ysxfeiajmf4516 [place] [address]Dr. Bhavani Barragan ALT [Catalytic activity/Vol] 90 U/L Critically high 14-59 [facility] Comment on above: Performed By: #### C MP ####[facility] Vparqerwpt6629 [place] [address]Dr. Bhavani Barragan Anion gap [Moles/Vol] 13.1 mmol/L Normal [facility] Comment on above: Performed By: #### C MP ####[facility] Wqzwwmsmkn1299 [place] [address]Dr. Bhavani Barragan AST [Catalytic activity/Vol] 56 U/L Critically high 15-37 [facility] Comment on above: Performed By: #### C MP ####[facility] Mfhdkvmsuq17[address] [place], [place] [address]Dr. Bhavani Laurel Bilirubin [Mass/Vol] 4.1 mg/dL Critically high 0.2-1.0 [facility] Comment on above: Performed By: #### C MP ####[facility] Aofiorxzlz43[address] [place], [place] [address]Dr. Jayceeroxi Laurel Calcium [Mass/Vol] 7.9 mg/dL Critically low 8.5-10.1 [facility] Comment on above: Performed By: #### C MP ####[facility] Dufedvzxae46[address] [place], [place] [address]Dr. Jayceeroxi Laurel Chloride [Moles/Vol] 103 mmol/L Normal 98-107 [facility] Comment on above: Performed By: #### C MP ####[facility] Gxkkgurjwb8318[address] [place], [place] [address]Dr. Jayceeroxi Laurel CO2 [Moles/Vol] 25.9 mmol/L Normal 21.0-32.0 [facility] Comment on above: Performed By: #### C MP ####[facility] Vntnpupbik0430[address] [place], [place] [address]Dr. Bhavani Barragan Creatinine [Mass/Vol] 1.32 mg/dL Critically high 0.55-1.02 [facility] Comment on above: Performed By: #### C MP ####[facility] Grbbcpsfmb2425[address] [place], [place] [address]Dr. Jayceeroxi aLurel EGFR-AF BENINESE 47 mL/min/1.73m2 Critically low >=60 [facility] Comment on above: Performed By: #### C MP ####[facility] Xrvqodrwht4154 [place] [id number]. Bhavani Barragan EGFR-NON AF BENINESE 39 mL/min/1.73m2 Critically low >=60 [facility] Comment on above: Performed By: #### C MP ####[facility] Hazmqelscm9680 [place] [address]Dr. Bhavani Barragan Globulin (S) [Mass/Vol] 3.7 g/dL Normal [facility] Comment on above: Performed By: #### C MP ####[facility] Yljhtuvndy5751 [place] [address]Dr. Bhavani Barragan Glucose [Mass/Vol] 133 mg/dL Critically high 74-106 T [facility] Comment on above: Performed By: #### C MP ####[facility] Tfivstahkv2559 [place] [address]Dr. Bhavani Laurel Potassium [Moles/Vol] 4.0 mmol/L Normal 3.5-5.1 [facility] Comment on above: Performed By: #### C MP ####[facility] Cufuqvmdtq8832 [place] [address]Dr. Bhavani Barragan Protein [Mass/Vol] 5.8 g/dL Critically low 6.4-8.2 Th [facility] Comment on above: Performed By: #### C MP ####[facility] Ztbqpapfyg3[address] [place], [place] [address]Dr. Bhavani Barragan Sodium [Moles/Vol] 138 mmol/L Normal 136-145 [facility] Comment on above: Performed By: #### C MP ####[facility] Muaiaretcl5488 [place] [address]Dr. Bhavani Barragan Urea nitrogen [Mass/Vol] 19.0 mg/dL Critically high 7.0-18.0 [facility] Comment on above: Performed By: #### C MP ####[facility] Dsbqcsgrac7026 [place] [address]Dr. Bhavani Laurel Urea nitrogen/Creatinine [Mass ratio] 14.4 mg/mg Normal [facility] Comment on above: Performed By: #### C MP ####[facility] Vuvpjbvyyo7160[address] [place], [place] [address]Dr. Bhavani Barragan PROTIMEon 03-29-2022 INR Coag (PPP) [Relative time] 1.33 {INR} Normal [facility] Comment on above: Performed By: #### P T, PTT ####[facility] Inbmcxwbop7646[address] [place], [place] [address]Dr. Bhavani Barragan INR GUIDELINES SEE BELOW Normal [facility] Comment on above: Result Comment: WALKER RED INR: 2.0 - 3.0 CONDITIONS NOT LISTED BELOW 2.5 - 3.5 FOR PROSTHETIC HEART VALVE REPLACEMENT 2.5 - 3.5 RECURRENT THROMBOSIS Performed By: #### P T, PTT ####[facility] Sjmxtqphum140[address] [place], [place] [address]Dr. Bhavani Barragan PT Coag (PPP) [Time] 14.1 s Critically high 9.0-11.6 [facility] Comment on above: Performed By: #### P T, PTT ####[facility] Aqsmexalgh6596[address] [place], [place] [address]Dr. Bhavani Barragan PTTon 03-29-2022 aPTT Coag (Bld) [Time] 36.0 s Normal 22.3-36.2 [facility] Comment on above: Performed By: #### P T, PTT ####[facility] Vcfezwgmyk7622[address] [place], [place] [address]Dr. Bhavani Barragan AMMONIAon 03-28-2022 Ammonia (P) [Moles/Vol] 22 umol/L Normal - The [facility] Comment on above: Performed By: #### A MM ####[facility] Ioyazexkdb743[address] [place], [place] [address]Dr. Bhavani Barragan CBC W MANUAL DIFFon 03-28-20 22 ANISOCYTOSIS 2+ Normal [facility] Comment on above: Performed By: #### C BCMAN ####[facility] Wtyqnapyuz9950[address] [place], [place] [address]Dr. Bhavani Barragan ATYPICAL LYMPH # Normal [facility] Comment on above: Performed By: #### C BCMAN ####[facility] Stdkgefcih9935 [place] [id number]. Bhavani Barragan ATYPICAL LYMPH % Normal [facility] Comment on above: Performed By: #### C BCMAN ####[facility] Sqfongsguq8185 [place] [id number]. Bhavani Barragan BAND # 0.8 103/ul Critically high 0.0-0.3 The [facility] Comment on above: Performed By: #### C BCJERSON ####[facility] Lbrjutzzhd5392 [place] [address]Dr. Yilan Barragan BAND % 3 % Normal 0-5 [facility] Comment on above: Performed By: #### C BCJERSON ####[facility] Gjdnpxclbd35[address] [place], [place] [address]Dr. Bhavani Barragan BASOM # 0.00 103/ul Normal 0.00-0.10 [facility] Comment on above: Performed By: #### C BCJERSON ####[facility] Evsnnoerzj307[address] [place], [place] [address]Dr. Bhavani Barragan BASOM % 0.0 % Critically low 0.2-2.0 The [facility] Comment on above: Performed By: #### C BCJERSON ####[facility] Rqvzkibdhm0[address] [place], [place] [address]Dr. Bhavani Barragan BLAST # Normal [facility] Comment on above: Performed By: #### C OMID ####[facility] Tfvsfdtolw1495 [place] [address]Dr. Yilan Barragan BLAST % Normal [facility] Comment on above: Performed By: #### C OMID ####[facility] Vchbnlxacn9904 [place] [address]Dr. Bhavani Barragan CORRECTED WBC Normal 4.0-11.0 The [facility] Comment on above: Performed By: #### C BCJERSON ####[facility] Gxyuzqcbpr6756 [place] [address]Dr. Bhavani Barragan EOS # 0.00 103/ul Normal 0.00-0.70 [facility] Comment on above: Performed By: #### C BCJERSON ####[facility] Btjhvfyvge6411 [place], [place] [address]Nf. Bhavani Barragan EOS% 0.0 % Critically low 0.9-7.0 The [facility] Comment on above: Performed By: #### C OMID ####[facility] Zhefacasyb2945 [place], [place] [address]Vf. Bhavani Barragan HCT 38.9 % Normal 36.0-48.0 The [facility] Comment on above: Performed By: #### C OMID ####[facility] Qcotzgcwuw5648 [place], [place] [address]Xr. Bhavani Barragan HGB 11.9 g/dl Critically low 12.0-16.0 The [facility] Comment on above: Performed By: #### C OMID ####[facility] Qyvchjunwo8990 [place], [place] [address]Ll. Bhavani Barragan LYMPHM # 0.78 103/ul Critically low 1.20-3.80 The [facility] Comment on above: Performed By: #### C OMID ####[facility] Cmaggkxayi1758 [place], [place] [address]Wc. Bhavani Barragan LYMPHM% 3.0 % Critically low 20.5-60.0 The [facility] Comment on above: Performed By: #### C OMID ####[facility] Idnterexbd7447 [place], [place] [address]Di. Bhavani Barragan MCH 29.8 pg Normal 26.7-34.0 The [facility] Comment on above: Performed By: #### C OMID ####[facility] Cnzitlgdiy2339 [place], [place] [address]Tn. Bhavani Barragan MCHC 30.6 g/dl Normal 29.9-35.2 The [facility] Comment on above: Performed By: #### C OMID ####[facility] Arubughhjq1699 [place], [place] [address]Wi. Bhavani Barragan MCV 97.3 fL Normal 81.0-99.0 The [facility] Comment on above: Performed By: #### C OMID ####[facility] Aqowaqasgl3061 [place] [id number]. Bhavani Barragan METAMYELOCYTE # Normal [facility] Comment on above: Performed By: #### C BCJERSON ####[facility] Mjnyhdwqhv4088 [place] [id number]. Bhavani Barragan METAMYELOCYTE % Normal [facility] Comment on above: Performed By: #### C BCJERSON ####[facility] Vhfoapdaiy4879 [place] [id number]. Bhavani Barragan MONOM# 0.78 103/ul Normal 0.30-0.80 [facility] Comment on above: Performed By: #### C OMID ####[facility] Bttosuhiib9[address] [place], [place] [address]Dr. Bhavani Barragan MONOM% 3.0 % Normal 1.7-12.0 [facility] Comment on above: Performed By: #### C OMID ####[facility] Njvzqairun[address] [place], [place] [address]Dr. Bhavani Barragan MPV 10.6 fL Normal 9.5-13.5 [facility] Comment on above: Performed By: #### C OMID ####[facility] Kjlrdqrzei[address] [place], [place] [address]Dr. Bhavani Barragan MYELOCYTE # Normal [facility] Comment on above: Performed By: #### C OMID ####[facility] Suethskeyp124[address] [place], [place] [address]Dr. Bhavani Barragan MYELOCYTE % Normal The [facility] Comment on above: Performed By: #### C OMID ####[facility] Pwhwwneile7[address] [place], [place] [address]Dr. Bhavani Barragan NRBC Normal [facility] Comment on above: Performed By: #### C OMID ####[facility] Pikeyylipv34[address] [place], [place] [address]Dr. Bhavani Barragan PLT 402 103/ul Normal 150-450 [facility] Comment on above: Performed By: #### C OMID ####[facility] Fndowfunlo645[address] [place], [place] [address]Dr. Bhavani Laurel RBC 4.00 106/ul Critically low 4.20-5.40 [facility] Comment on above: Performed By: #### C OMID ####[facility] Fqpiyibtmx3582 [place] [id number]. Bhavani Barragan RDW 16.7 % Critically high 11.0-15.0 [facility] Comment on above: Performed By: #### C OMID ####[facility] Fdjxopybmp1616 [place] [address]DrLydia Barragan SEG # 23.66 103/ul Critically high 1.40-6.50 [facility] Comment on above: Performed By: #### C OMID ####[facility] Hyjjssegpy2292 [place] [address]DrLydia Barragan SEG % 91.0 % Critically high 43.0-75.0 [facility] Comment on above: Performed By: #### C OMID ####[facility] Pauaaloatz8813 [place] [address]DrLydia Barragan WBC 26.0 103/ul Critically high 4.0-11.0 [facility] Comment on above: Performed By: #### C OMID ####[facility] Zmnuoelxeh5179 [place] [address]DrLydia Barragan PROF 14(COMP METB)on 022 Albumin [Mass/Vol] 2.1 g/dL Critically low 3.4-5.0 [facility] Comment on above: Performed By: #### C MP ####[facility] Rpogejvibx7910 [place] [id number] Barragan Albumin/Globulin [Mass ratio] 0.6 {ratio} Normal The [facility] Comment on above: Performed By: #### C MP ####[facility] Tyadmmujgp2373 [place] [address]DrLydia Barragan ALP [Catalytic activity/Vol] 235 U/L Critically high 46-116 [facility] Comment on above: Performed By: #### C MP ####[facility] Xwokyeydih4025 [place] [address]DrLydia Barragan ALT [Catalytic activity/Vol] 112 U/L Critically high 14-59 [facility] Comment on above: Performed By: #### C MP ####[facility] Lwpfyxvtpa4087 [place] [address]Dr. Bhavani Barragan Anion gap [Moles/Vol] 12.3 mmol/L Normal [facility] Comment on above: Performed By: #### C MP ####[facility] Awfqrmeram5853 [place] [id number]. Bhavani Barragan AST [Catalytic activity/Vol] 57 U/L Critically high 15-37 [facility] Comment on above: Performed By: #### C MP ####[facility] Munujlbotr9712[address] [place], [place] [address]Dr. Bhavani Barragan Bilirubin [Mass/Vol] 1.6 mg/dL Critically high 0.2-1.0 [facility] Comment on above: Performed By: #### C MP ####[facility] Azmcbpdtds42[address] [place], [place] [address]Dr. Bhavani Barragan Calcium [Mass/Vol] 7.6 mg/dL Critically low 8.5-10.1 Th [facility] Comment on above: Performed By: #### C MP ####[facility] Oxffhyjpfq6220[address] [place], [place] [address]Dr. Bhavani Barragan Chloride [Moles/Vol] 104 mmol/L Normal 98-107 [facility] Comment on above: Performed By: #### C MP ####[facility] Pvpyoyxpaz9475[address] [place], [place] [address]Dr. Bhavani Barragan CO2 [Moles/Vol] 25.5 mmol/L Normal 21.0-32.0 [facility] Comment on above: Performed By: #### C MP ####[facility] Qxolgwfhzl6965[address] [place], [place] [address]Dr. Bhavani Barragan Creatinine [Mass/Vol] 1.28 mg/dL Critically high 0.55-1.02 [facility] Comment on above: Performed By: #### C MP ####[facility] Vltwohxlmn6334[address] [place], [place] [address]Dr. Bhavani Barragan EGFR-AF BENINESE 48 mL/min/1.73m2 Critically low >=60 [facility] Comment on above: Performed By: #### C MP ####[facility] Rwgadpyvsk5453 [place] [id number]. Jayceeroxi Laurel EGFR-NON AF BENINESE 40 mL/min/1.73m2 Critically low >=60 [facility] Comment on above: Performed By: #### C MP ####[facility] Iqhiofbrfe3144 [place] [id number]. Bhavani Barragan Globulin (S) [Mass/Vol] 3.7 g/dL Normal [facility] Comment on above: Performed By: #### C MP ####[facility] Pmfadyggiu3017[address] [place], [place] [address]Dr. Bhavani Barragan Glucose [Mass/Vol] 69 mg/dL Critically low 74-106 Th [facility] Comment on above: Performed By: #### C MP ####[facility] Vtddvistab716[address] [place], [place] [address]Dr. Bhavani Barragan Potassium [Moles/Vol] 3.8 mmol/L Normal 3.5-5.1 [facility] Comment on above: Performed By: #### C MP ####[facility] Jembxdpunp6360[address] [place], [place] [address]Dr. Bhavani Barragan Protein [Mass/Vol] 5.8 g/dL Critically low 6.4-8.2 Th [facility] Comment on above: Performed By: #### C MP ####[facility] Izptyjzanm6[address] [place], [place] [address]Dr. Bhavani Barragan Sodium [Moles/Vol] 138 mmol/L Normal 136-145 [facility] Comment on above: Performed By: #### C MP ####[facility] Bhlcvdkkye477[address] [place], [place] [address]Dr. Bhavani Barragan Urea nitrogen [Mass/Vol] 18.0 mg/dL Normal 7.0-18.0 [facility] Comment on above: Performed By: #### C MP ####[facility] Wxltqsbprt4732[address] [place], [place] [address]Dr. Bhavani Barragan Urea nitrogen/Creatinine [Mass ratio] 14.1 mg/mg Normal The [facility] Comment on above: Performed By: #### C MP ####[facility] Vjwwjnzlad911[address] [place], [place] [address]DrLydia Barragan PROTIMEon 03-28-2022 INR Coag (PPP) [Relative time] 1.38 {INR} Normal [facility] Comment on above: Performed By: #### P T, PTT ####[facility] Hmuyyihmuo616[address] [place], [place] [address]DrLydia Barragan INR GUIDELINES SEE BELOW Normal The [facility] Comment on above: Result Comment: WALKER RED INR: 2.0 - 3.0 CONDITIONS NOT LISTED BELOW 2.5 - 3.5 FOR PROSTHETIC HEART VALVE REPLACEMENT 2.5 - 3.5 RECURRENT THROMBOSIS Performed By: #### P T, PTT ####[facility] Oumlbhnizd3880[address] [place], [place] [address]DrLydia Barragan PT Coag (PPP) [Time] 14.6 s Critically high 9.0-11.6 The [facility] Comment on above: Performed By: #### P T, PTT ####[facility] Tdgaxjxjwx5[address] [place], [place] [address]DrLydia Barragan PTTon 03-28-2022 aPTT Coag (Bld) [Time] 36.6 s Critically high 22.3-36.2 [facility] Comment on above: Performed By: #### P T, PTT ####[facility] Sboxqckgrd907[address] [place], [place] [address]DrLydia Barragan RESPIRATORY PANEL PLUSon Adenovirus Not detected Normal NOT DETECTED The [facility] Comment on above: Performed By: #### R SPLUS ####[facility] Agknknorxu364[address] [place], [place] [address]DrLydia Barragan B. Parapertusis Not detected Normal NOT DETECTED The [facility] Comment on above: Performed By: #### R SPLUS ####[facility] Bhnhdfurhf4316[address] [place], [place] [address]DrLydia Barragan B. Pertussis Not detected Normal NOT DETECTED The [facility] Comment on above: Performed By: #### R SPLUS ####[facility] Mzzuccazsp5502 [place] [address]Dr. Bhavani Barragan Chlamydia Pneumoniae Not detected Normal NOT DETECTED The [facility] Comment on above: Performed By: #### R SPLUS ####[facility] Gugroxuvmc6416 [place] [address]Dr. Bhavani Barragan Coronavirus 229E Not detected Normal NOT DETECTED The [facility] Comment on above: Performed By: #### R SPLUS ####[facility] Chamabjmys1356[address] [place], [place] [address]Dr. [facility]eAc[facility]ia Healthcare Coronavirus HKU1 Not detected Normal NOT DETECTED The [facility] Comment on above: Performed By: #### R SPLUS ####[facility] Strotqhbld8750[address] [place], [place] [address]Dr. Bhavani Barragan Coronavirus NL63 Not detected Normal NOT DETECTED The [facility] Comment on above: Performed By: #### R SPLUS ####[facility] Czxxjernjm9022[address] [place], [place] [address]Dr. roxi [facility] Coronavirus OC43 Not detected Normal NOT DETECTED The [facility] Comment on above: Performed By: #### R SPLUS ####[facility] Exsxpiivkp179[address] [place], [place] [address]Dr. Bhavani Barragan Influenza A H1 2009 Not detected Normal NOT DETECTED T [facility] Comment on above: Performed By: #### R SPLUS ####[facility] Uglessplud564[address] [place], [place] [address]Dr. Bhavani Barragan Influenza A H3 Not detected Normal NOT DETECTED The [facility] Comment on above: Performed By: #### R SPLUS ####[facility] Xrhsmxktbt5[address] [place], [place] [address]Dr. Yiroxi Barragan Influenza B Not detected Normal NOT DETECTED The [facility] Comment on above: Performed By: #### R SPLUS ####[facility] Isumfmrrmw4316[address] [place], [place] [address]Dr. Yiroxi Barragan Metapneumovirus Not detected Normal NOT DETECTED The [facility] Comment on above: Performed By: #### R SPLUS ####[facility] Kzvkugzygz5487 [place] [address]Dr. Bhavani Barragan Mycoplas. Pneumoniae Not detected Normal NOT DETECTED The [facility] Comment on above: Performed By: #### R SPLUS ####[facility] Wzmwckmafg379[address] [place], [place] [address]Dr. Yiroxi Barragan Parainfluenza 1 Not detected Normal NOT DETECTED The [facility] Comment on above: Performed By: #### R SPLUS ####[facility] Hdubmuckrn347[address] [place], [place] [address]Dr. Yiroxi Barragan Parainfluenza 2 Not detected Normal NOT DETECTED The [facility] Comment on above: Performed By: #### R SPLUS ####[facility] Xqpbfnplgj42[address] [place], [place] [address]Dr. Bhavani Barragan Parainfluenza 3 Not detected Normal NOT DETECTED [facility] Comment on above: Performed By: #### R SPLUS ####[facility] Cupbfylhid5077[address] [place], [place] [address]Dr. Yiroxi Barragan Parainfluenza 4 Not detected Normal NOT DETECTED The [facility] Comment on above: Performed By: #### R SPLUS ####[facility] Acyjcnveqh037[address] [place], [place] [address]Dr. Yiroxi Barragan Rhino/Enterovirus Not detected Normal NOT DETECTED The [facility] Comment on above: Performed By: #### R SPLUS ####[facility] Uerwqkbbgd8535[address] [place], [place] [address]Dr. Bhavani Barragan RP2 Header 1 RESPIRATORY PANEL: VIRUSES Normal The [facility] Comment on above: Performed By: #### R SPLUS ####[facility] Wdncldujwf453267 [address] [place], [place] [address]Dr. Yilan Barragan RP2 Header 2 RESPIRATORY PANEL: BACTERIA Normal The [facility] Comment on above: Performed By: #### R SPLUS ####[facility] Lgzxmjohrj486767 [address] [place], [place] [address]Dr. Yiroxi Barragan RSV Not detected Normal NOT DETECTED The [facility] Comment on above: Performed By: #### R SPLUS ####[facility] S[address]imicfhe[address] [place] [address]Dr. Bhavani Barragan SARS-CoV-2 (COVID-19) RNA MATTHEW+probe Ql (Unsp spec) Not detected Normal NOT DETECTED [facility] Comment on above: Performed By: #### R SPLUS ####[facility] Beemrevvof[address] [place] [address]Dr. Bhavani Barragan AMMONIAon 03-27-2022 Ammonia (P) [Moles/Vol] 22 umol/L Normal 11-32 [facility] Comment on above: Performed By: #### A MM ####[facility] Ziyasktbmd1950[address] [place], [place] [address]Dr. Bhavani Barragan BLOOD GASES BTYon 03-27-2022 02 MODE NASAL CANNULA Normal [facility] Comment on above: Performed By: #### A BG ####[facility] Starhsvvlo3522[address] [place], [place] [address]Dr. Bhavani Barragan ALLENS TEST Positive Normal [facility] Comment on above: Performed By: #### A BG ####[facility] Otlzomiwsi5878[address] [place], [place] [address]Dr. Bhavani Barragan Base excess Calc (Bld) [Moles/Vol] 1.4 mmol/L Normal -2.0-2.0 [facility] Comment on above: Performed By: #### A BG ####[facility] Vjkyxarxbr13[address] [place], [place] [address]Dr. Bhavani Barragan BIPAP PRESSURE Normal [facility] Comment on above: Performed By: #### A BG ####[facility] Gcwibjpewt667[address] [place], [place] [address]Dr. Bhavani Barragan CO2 [Moles/Vol] 50.8 mmol/L Critically high 23.0-28.0 [facility] Comment on above: Performed By: #### A BG ####[facility] Uiokeyuxuk6296[address] [place], [place] [address]Dr. Bhavani Barragan CPAP Normal [facility] Comment on above: Performed By: #### A BG ####[facility] Gndohjeoph[address] [place] [address]Dr. Bhavani Barragan FIO2 Normal [facility] Comment on above: Performed By: #### A BG ####[facility] Ppshcpjwor3769 [place] [address]Dr. Bhavani Barragan HCO3 (Bld) [Moles/Vol] 25.6 mmol/L Normal 22.0-26.0 [facility] Comment on above: Performed By: #### A BG ####[facility] Krmkelbpnh035[address] [place], [place] [address]Dr. Bhavani Barragan LPM 5 Normal [facility] Comment on above: Performed By: #### A BG ####[facility] Ncxximqeik658467 [address] [place], [place] [address]Dr. Bhavani Barragan MINUTE VOLUME Normal The [facility] Comment on above: Performed By: #### A BG ####[facility] Czmfefzazo1806[address] [place], [place] [address]Dr. Bhavani Barragan Oxygen (Bld) [Partial pressure] 56.6 mm[Hg] Critically low 80.0-100.0 [facility] Comment on above: Performed By: #### A BG ####[facility] Nkkgfrkkii2409[address] [place], [place] [address]Dr. Bhavani Barragan Oxygen saturation in Blood 91.3 % Critically low 95.0-100.0 [facility] Comment on above: Performed By: #### A BG ####[facility] Eanmryclkf45[address] [place], [place] [address]Dr. Bhavani Barragan PCO2 36.1 mmHg Normal 35.0-45.0 The [facility] Comment on above: Performed By: #### A BG ####[facility] Pyshhtvgdr6364[address] [place], [place] [address]Dr. Bhavani Barragan PEEP Normal [facility] Comment on above: Performed By: #### A BG ####[facility] Vylooxckeh6354[address] [place], [place] [address]Dr. Bhavani Barragan pH (Bld) 7.454 [pH] Critically high 7.350-7.450 [facility] Comment on above: Performed By: #### A BG ####[facility] Qdtensihck2162 [place] [address]Dr. Bhavani Barragan PIP Normal [facility] Comment on above: Performed By: #### A BG ####[facility] Dzbsjqnzvv6935 [place] [address]Dr. Bhavani Barragan PS Normal [facility] Comment on above: Performed By: #### A BG ####[facility] Zxrpxismet6682 [place] [address]Dr. Bhavani Barragan PUNCTURE SITE LR Normal The [facility] Comment on above: Performed By: #### A BG ####[facility] Pbcfpoktyj9539[address] [place], [place] [address]Dr. Bhavani Barragan RATE [facility] Comment on above: Performed By: #### A BG ####[facility] Atwsjmznrk044[address] [place], [place] [address]Dr. Bhavani Barragan VENT MODE [facility] Comment on above: Performed By: #### A BG ####[facility] Bjhikazyrs046[address] [place], [place] [address]Dr. Bhavani Barragan [place] [facility] Comment on above: Performed By: #### A BG ####[facility] Eoialkrsvt2006[address] [place], [place] [address]Dr. Bhavani Barragan CBC W MANUAL DIFFon 03-27-20 22 ANISOCYTOSIS 2+ [facility] Comment on above: Performed By: #### C OMID ####[facility] Jgyhegywpb26[address] [place] [address]Dr. Bhavani Barragan ATYPICAL LYMPH # Normal [facility] Comment on above: Performed By: #### C OMID ####[facility] Bnmhkzkgnt340[address] [place] [address]Dr. Bhavani Barragan ATYPICAL LYMPH % Normal [facility] Comment on above: Performed By: #### C BCJERSON ####[facility] Ttxdvtwfxv03[address] [place] [address]Dr. Bhavani Barragan BAND # 1.5 103/ul Critically high 0.0-0.3 The [facility] Comment on above: Performed By: #### C OMID ####[facility] Wxrmqemees6236 [place] [id number]. Bhavani Barragan BAND % 5 % Normal 0-5 The [facility] Comment on above: Performed By: #### C OMID ####[facility] Bipcdjsfov0794 [place] [id number]. Bhavani Barragan BASOM # 0.00 103/ul Normal 0.00-0.10 The [facility] Comment on above: Performed By: #### C OMID ####[facility] Iuvmofwcat6430 [place] [address]Dr. Bhavani Barragan BASOM % 0.0 % Critically low 0.2-2.0 The [facility] Comment on above: Performed By: #### C OMID ####[facility] Omyxjzifng6659 [place] [address]Dr. Bhavani Barragan BLAST # Normal The [facility] Comment on above: Performed By: #### C OMID ####[facility] Wbkrdketvl7284[address] [place], [place] [address]Dr. Yiroxi Barragan BLAST % Normal The [facility] Comment on above: Performed By: #### C OMID ####[facility] Escaaxuwvs9108[address] [place], [place] [address]Dr. Bahvani Barragan CORRECTED WBC Normal 4.0-11.0 The [facility] Comment on above: Performed By: #### C OMID ####[facility] Zozskaqqmv55[address] [place] [address]Dr. Bhavani Barragan EOS # 0.00 103/ul Normal 0.00-0.70 The [facility] Comment on above: Performed By: #### C OMID ####[facility] Tyhyyedmtz3639 [place] [address]Dr. Bhavani Barragan EOS% 0.0 % Critically low 0.9-7.0 The [facility] Comment on above: Performed By: #### C OMID ####[facility] Yqzmpelspk8735 [place] [address]Dr. Bhavani Barragan HCT 41.4 % Normal 36.0-48.0 The [facility] Comment on above: Performed By: #### C OMID ####[facility] Oxquuclwri5843 [place] [id number]. Bhavani Barragan HGB 13.0 g/dl Normal 12.0-16.0 [facility] Comment on above: Performed By: #### C OMID ####[facility] Divaabyawo[address] [place] [id number]. Bhavani Barragan LYMPHM # 0.60 103/ul Critically low 1.20-3.80 The [facility] Comment on above: Performed By: #### C OMID ####[facility] Segadboslj7534 [place] [id number]. Bhavani Barragan LYMPHM% 2.0 % Critically low 20.5-60.0 [facility] Comment on above: Performed By: #### Jany ANNE ####[facility] Qsvbxewenl7921 [place] [id number]. Bhavani Barragan MCH 30.1 pg Normal 26.7-34.0 [facility] Comment on above: Performed By: #### Jany ANNE ####[facility] Vcrgzlkrnc1074 [place] [id number]. Bhavani Barragan MCHC 31.4 g/dl Normal 29.9-35.2 [facility] Comment on above: Performed By: #### Jany ANNE ####[facility] Jngyxhawuu9873 [place] [id number]. Bhavani Barragan MCV 95.8 fL Normal 81.0-99.0 The [facility] Comment on above: Performed By: #### Jany ANNE ####[facility] Tkcjfahxpr5199 [place] [id number]. Bhavani Barragan METAMYELOCYTE # Normal The [facility] Comment on above: Performed By: #### Jany ANNE ####[facility] Dbqmgqmfsc86[address] [place], [place] [address]Dr. Bhavani Barragan METAMYELOCYTE % Normal The [facility] Comment on above: Performed By: #### Jany ANNE ####[facility] Jvgsbiqyeu2196 [place] [id number]. Bhavani Barragan MONOM# 0.91 103/ul Critically high 0.30-0.80 [facility] Comment on above: Performed By: #### C OMID ####[facility] Vzplbauvdg7576 [place] [id number]. Bhavani Barragan MONOM% 3.0 % Normal 1.7-12.0 [facility] Comment on above: Performed By: #### C OMID ####[facility] Zkjlqlyagk5113 [place] [id number]. Bhavani Barragan MPV 10.4 fL Normal 9.5-13.5 [facility] Comment on above: Performed By: #### C OMID ####[facility] Lyutpudcgd3[address] [place] [address]Dr. Bhavani Laurel MYELOCYTE # Normal [facility] Comment on above: Performed By: #### C OMID ####[facility] Mzojaxrmxv0783 [place] [id number]. Bhavani Barragan MYELOCYTE % Normal The [facility] Comment on above: Performed By: #### C OMID ####[facility] Vcwrouxkai45[address] [place] [address]Dr. Bhavani Barragan NRBC Normal The [facility] Comment on above: Performed By: #### C OMID ####[facility] Bvylfklalc7575 [place] [id number]. Bhavani Barragan PLT 431 103/ul Normal 150-450 The [facility] Comment on above: Performed By: #### C OMID ####[facility] Bndttljauw3055 [place] [id number]. Bhavani Barragan RBC 4.32 106/ul Normal 4.20-5.40 The [facility] Comment on above: Performed By: #### C OMID ####[facility] Lqhmphrlqr5158 [place] [id number]. Jayceeroxi Laurel RDW 16.4 % Critically high 11.0-15.0 The [facility] Comment on above: Performed By: #### C OMID ####[facility] Cndysrdzjl7236 [place] [id number]. Bhavani Barragan SEG # 27.18 103/ul Critically high 1.40-6.50 [facility] Comment on above: Performed By: #### C BCMAN ####[facility] Zkjidgsgdd9204 [place] [id number]. Bhavani Barragan SEG % 90.0 % Critically high 43.0-75.0 [facility] Comment on above: Performed By: #### C BCMAN ####[facility] Elcskblgue3408 [place] [id number]. Bhavani Barragan WBC 30.2 103/ul Critically high 4.0-11.0 [facility] Comment on above: Performed By: #### C BCMAN ####[facility] Fflfrfjywm44[address] [place] [address]Dr. Bhavani Laurel CTA CHEST WO W CONon 022 CTA CHEST WO W CON Normal [facility] POINT OF CARE GLUCOSEon 03-18 Glucose [Mass/Vol] 94 mg/dL Normal 74-106 [facility] Comment on above: Performed By: #### P OCGLUC ####[facility] Pcmsfknjjg4641 [place] [id number]. Bhavani Barragan Glucose [Mass/Vol] 131 mg/dL Critically high 74-106 [facility] Comment on above: Performed By: #### P OCGLUC ####[facility] Uwhqhavqnj0216 [place] [id number]. Jayceeroxi Barragan Glucose [Mass/Vol] 134 mg/dL Critically high 74-106 [facility] Comment on above: Performed By: #### P OCGLUC ####[facility] Mzrbuutdgw0345 [place] [phone] Barragan PROF 14(COMP METB)on 022 Albumin [Mass/Vol] 2.4 g/dL Critically low 3.4-5.0 [facility] Comment on above: Performed By: #### C MP ####[facility] Ouudrnksrr5645 [place] [phone]. Bhavani Barragan Albumin/Globulin [Mass ratio] 0.6 {ratio} Normal [facility] Comment on above: Performed By: #### C MP ####[facility] Fcpmxzglyk8273 [place] [address]Dr. Bhavani Barragan ALP [Catalytic activity/Vol] 306 U/L Critically high 46-116 [facility] Comment on above: Performed By: #### C MP ####[facility] Wzjhahpqbv5743 [place] [address]Dr. Bhavani Barragan ALT [Catalytic activity/Vol] 152 U/L Critically high 14-59 [facility] Comment on above: Performed By: #### C MP ####[facility] Fmzgskipbf5094 [place] [address]Dr. Bhavani Barragan Anion gap [Moles/Vol] 8.1 mmol/L Normal [facility] Comment on above: Performed By: #### C MP ####[facility] Mzemeuzqpe32[address] [place], [place] [address]Dr. Bhavani Barragan AST [Catalytic activity/Vol] 98 U/L Critically high 15-37 [facility] Comment on above: Performed By: #### C MP ####[facility] Osifphkegj26[address] [place], [place] [address]Dr. Bhavani Barragan Bilirubin [Mass/Vol] 2.7 mg/dL Critically high 0.2-1.0 [facility] Comment on above: Performed By: #### C MP ####[facility] Vbqemxxwrx9[address] [place], [place] [address]Dr. Bhavani Laurel Calcium [Mass/Vol] 7.4 mg/dL Critically low 8.5-10.1 [facility] Comment on above: Performed By: #### C MP ####[facility] Widequzwvp6633 [place] [address]Dr. Bhavani Laurel Chloride [Moles/Vol] 103 mmol/L Normal 98-107 [facility] Comment on above: Performed By: #### C MP ####[facility] Bpnfmuybei7459 [place] [address]Dr. Bhavani Barragan CO2 [Moles/Vol] 24.7 mmol/L Normal 21.0-32.0 [facility] Comment on above: Performed By: #### C MP ####[facility] Ozxqxerdjw5113 [place] [id number]. Bhavani Barragan Creatinine [Mass/Vol] 1.07 mg/dL Critically high 0.55-1.02 [facility] Comment on above: Performed By: #### C MP ####[facility] Rljgtcqiwg8303 [place] [phone]. Bhavani Barragan EGFR-AF BENINESE 60 mL/min/1.73m2 Normal >=60 Th [facility] Comment on above: Performed By: #### C MP ####[facility] Ocfznydxhw1255 [place] [address]Dr. Bhavani Laurel EGFR-NON AF BENINESE 49 mL/min/1.73m2 Critically low >=60 [facility] Comment on above: Performed By: #### C MP ####[facility] Ylimaptybj2310 [place] [address]Dr. Bhavani Laurel Globulin (S) [Mass/Vol] 3.8 g/dL Normal [facility] Comment on above: Performed By: #### C MP ####[facility] Woqxrnfrqv35[address] [place], [place] [address]Dr. Bhavani Barragan Glucose [Mass/Vol] 140 mg/dL Critically high 74-106 T [facility] Comment on above: Performed By: #### C MP ####[facility] Gkfariuvep8295 [place] [address]Dr. Jayceeroxi Barragan Potassium [Moles/Vol] 3.8 mmol/L Normal 3.5-5.1 [facility] Comment on above: Performed By: #### C MP ####[facility] Ghvhuiuntd8636 [place] [address]Dr. Bhavani Barragan Protein [Mass/Vol] 6.2 g/dL Critically low 6.4-8.2 Th [facility] Comment on above: Performed By: #### C MP ####[facility] Gargbkrhqw1923[address] [place], [place] [address]Dr. Bhavani Barragan Sodium [Moles/Vol] 132 mmol/L Critically low 136-145 Th [facility] Comment on above: Performed By: #### C MP ####[facility] Vydchvydvn8081 [place] [address]Dr. Bhavani Barragan Urea nitrogen [Mass/Vol] 15.0 mg/dL Normal 7.0-18.0 The [facility] Comment on above: Performed By: #### C MP ####[facility] Vepwcamkgd5156[address] [place], [place] [address]Dr. Bhavani Barragan Urea nitrogen/Creatinine [Mass ratio] 14.0 mg/mg Normal The [facility] Comment on above: Performed By: #### C MP ####[facility] Akfbhutctp3987[address] [place], [place] [address]Dr. Bhavani Barragan PROTIMEon 03-27-2022 INR Coag (PPP) [Relative time] 1.37 {INR} Normal [facility] Comment on above: Performed By: #### P T, PTT ####[facility] Cqasxuvhou115[address] [place], [place] [address]Dr. Bhavani Barragan INR GUIDELINES SEE BELOW Normal The [facility] Comment on above: Result Comment: WALKER RED INR: 2.0 - 3.0 CONDITIONS NOT LISTED BELOW 2.5 - 3.5 FOR PROSTHETIC HEART VALVE REPLACEMENT 2.5 - 3.5 RECURRENT THROMBOSIS Performed By: #### P T, PTT ####[facility] Qgnichskgr5706[address] [place], [place] [address]Dr. Bhavani Barragan PT Coag (PPP) [Time] 14.5 s Critically high 9.0-11.6 [facility] Comment on above: Performed By: #### P T, PTT ####[facility] Lxsawwbcos94[address] [place], [place] [address]Dr. Bhavani Barragan PTTon 03-27-2022 aPTT Coag (Bld) [Time] 34.2 s Normal 22.3-36.2 [facility] Comment on above: Performed By: #### P T, PTT ####[facility] Ynsowrnxpx5960[address] [place], [place] [address]Dr. Bhavani Barragan XR ABD FLAT_UPon 03-27-2022 XR ABD FLAT_UP Normal [facility] XR CHEST 1 Von 03-27-2022 XR CHEST 1 V Normal [facility] AMMONIAon 03-26-2022 Ammonia (P) [Moles/Vol] 26 umol/L Normal 11-32 [facility] Comment on above: Performed By: #### A MM ####[facility] Tfvvrleyqq216[address] [place] [address]Dr. Bhavani Barragan CBC AUTO DIFFon 03-26-2022 BASO # 0.2 103/ul Critically high 0.0-0.1 The [facility] Comment on above: Performed By: #### C BC ####[facility] Ujctpxboix80[address] [place], [place] [address]Dr. Bhavani Barragan Basophils/100 WBC (Bld) 0.8 % Normal 0.2-2.0 The [facility] Comment on above: Performed By: #### C BC ####[facility] Dlsdkxbvtv11[address] [place], [place] [address]Dr. Bhavani Barragan EO # 0.0 103/ul Normal 0.0-0.7 [facility] Comment on above: Performed By: #### C BC ####[facility] Eaudqgyysa39[address] [place], [place] [address]Dr. Bhavani Barragan Eosinophils/100 WBC (Bld) 0.1 % Critically low 0.9-7.0 The [facility] Comment on above: Performed By: #### C BC ####[facility] Kgabsmiamv[address] [place], [place] [address]Dr. Bhavani Barragan Erythrocyte distribution width (RBC) [Ratio] 16.0 % Critically high 11.0-15.0 The [facility] Comment on above: Performed By: #### C BC ####[facility] Bfjczpgjyh54[address] [place], [place] [address]Dr. Bhavani Barragan Hematocrit (Bld) [Volume fraction] 43.9 % Normal 36.0-48.0 The [facility] Comment on above: Performed By: #### C BC ####[facility] Tuorwnyjpw88[address] [place], [place] [address]Dr. Bhavani Barragan Hemoglobin (Bld) [Mass/Vol] 13.6 g/dL Normal 12.0-16.0 [facility] Comment on above: Performed By: #### C BC ####[facility] Kndsrooazv5543 [place] [id number]. Bhavani Barragan IG # 0.78 10e3/ul Critically high 0.00-0.03 [facility] Comment on above: Performed By: #### C BC ####[facility] Livqxopuqm5967 [place] [id number]. Bhavani Barragan IG % 3.5 % Critically high 0.0-0.5 [facility] Comment on above: Performed By: #### C BC ####[facility] Zhylspurwo5156 [place] [address]Dr. Bhavani Barragan LYMPH # 0.9 103/ul Critically low 1.2-3.8 [facility] Comment on above: Performed By: #### C BC ####[facility] Yyajwkfptf7878 [place] [address]DrLydia Barragan Lymphocytes/100 WBC (Bld) 3.9 % Critically low 20.5-60.0 [facility] Comment on above: Performed By: #### C BC ####[facility] Hkwnapvcvp9887 [place] [address]DrLydia Barragan MANUAL DIFF REQ NO Normal [facility] Comment on above: Performed By: #### C BC ####[facility] Pbskeouisg4341 [place] [address]Dr. Bhavani Barragan MCH (RBC) [Entitic mass] 30.0 pg Normal 26.7-34.0 [facility] Comment on above: Performed By: #### C BC ####[facility] Modcyncthi0685 [place] [id number]. Bhavani Barragan MCHC (RBC) [Mass/Vol] 31.0 g/dL Normal 29.9-35.2 [facility] Comment on above: Performed By: #### C BC ####[facility] Center [address] [place] [address]Dr. Bhavani Barragan MCV (RBC) [Entitic vol] 96.9 fL Normal 81.0-99.0 [facility] Comment on above: Performed By: #### C BC ####[facility] Izmubfkazl35[address] [place] [id number]. Bhavani Barragan MONO # 0.6 103/ul Normal 0.3-0.8 [facility] Comment on above: Performed By: #### C BC ####[facility] Vmqugqgoxj5031 [place] [id number]. Bhavani Barragan Monocytes/100 WBC (Bld) 2.7 % Normal 1.7-12.0 The [facility] Comment on above: Performed By: #### C BC ####[facility] Jxdunhcwkq6121 [place] [id number]. Bhavani Barragan NEUT # 20.1 103/ul Critically high 1.4-6.5 The [facility] Comment on above: Performed By: #### C BC ####[facility] Bzqavtjgef480[address] [place] [address]Dr. Bhavani Barragan Neutrophils/100 WBC (Bld) 89.0 % Critically high 43.0-75.0 The [facility] Comment on above: Performed By: #### C BC ####[facility] Sdvcjbutzs[address] [place] [address]Dr. Bhavani Barragan Platelet mean volume (Bld) [Entitic vol] 9.7 fL Normal 9.5-13.5 The [facility] Comment on above: Performed By: #### C BC ####[facility] Lqtsxzcowz9946 [place] [id number]. Bhavani Barragan PLT 434 103/ul Normal 150-450 [facility] Comment on above: Performed By: #### C BC ####[facility] Kcznmyfiuc8601 [place] [id number]. Bhavani Barragan RBC 4.53 106/ul Normal 4.20-5.40 [facility] Comment on above: Performed By: #### C BC ####[facility] Mifzhlontv7439 [place] [id number]. Bhavani Barragan WBC 22.6 103/ul Critically high 4.0-11.0 The [facility] Comment on above: Performed By: #### C BC ####[facility] Grfbhbnwzk5[address] [place] [address]Dr. Bhavani Barragan ECHOCARDIO M/2D COMPLETEon 0 03-26-2022 ECHOCARDIO M/2D COMPLETE Normal [facility] POINT OF CARE GLUCOSEon Glucose [Mass/Vol] 166 mg/dL Critically high 74-106 [facility] Comment on above: Performed By: #### P OCGLUC ####[facility] Dkjzfvobgn9065 [place] [address]Dr. Bhavani Barragan Glucose [Mass/Vol] 148 mg/dL Critically high 74-106 [facility] Comment on above: Performed By: #### P OCGLUC ####[facility] Hcppmxynzs0522 [place] [address]Dr. Bhavani Barragan PROF 14(COMP METB)on 022 Albumin [Mass/Vol] 2.4 g/dL Critically low 3.4-5.0 [facility] Comment on above: Performed By: #### C MP ####[facility] Juajyvdhgz3765 [place] [address]Dr. Bhavani Barragan Albumin/Globulin [Mass ratio] 0.6 {ratio} [facility] [place] Comment on above: Performed By: #### C MP ####[facility] Qsoyhigeol3563 [place] [address]Dr. Bhavani Barragan ALP [Catalytic activity/Vol] 310 U/L Critically high 46-116 [facility] Comment on above: Performed By: #### C MP ####[facility] Qunknesqsd5994 [place] [address]Dr. Bhavani Barragan ALT [Catalytic activity/Vol] 194 U/L Critically high 14-59 [facility] Comment on above: Performed By: #### C MP ####[facility] Qkofhuwvao9382 [place] [address]Dr. Bhavani Barragan Anion gap [Moles/Vol] 8.2 mmol/L Normal [facility] Comment on above: Performed By: #### C MP ####[facility] Lfnpkabnxz5645 [place] [address]Dr. Bhavani Barragan AST [Catalytic activity/Vol] 133 U/L Critically high 15-37 [facility] Comment on above: Performed By: #### C MP ####[facility] Tswrjvsyei7792 [place] [address]Dr. Bhavani Barragan Bilirubin [Mass/Vol] 2.8 mg/dL Critically high 0.2-1.0 [facility] Comment on above: Performed By: #### C MP ####[facility] Armyyrcyxt4822 [place] [address]Dr. Bhavani Barragan Calcium [Mass/Vol] 7.7 mg/dL Critically low 8.5-10.1 [facility] Comment on above: Performed By: #### C MP ####[facility] Idtvmbxeol[address] [place], [place] [address]Dr. Bhavani Barragan Chloride [Moles/Vol] 105 mmol/L Normal 98-107 [facility] Comment on above: Performed By: #### C MP ####[facility] Olmducdlbj[address] [place], [place] [address]Dr. Bhavani Barragan CO2 [Moles/Vol] 25.8 mmol/L Normal 21.0-32.0 [facility] Comment on above: Performed By: #### C MP ####[facility] Bcvsifwqpd9[address] [place], [place] [address]Dr. Bhavani Barragan Creatinine [Mass/Vol] 1.07 mg/dL Critically high 0.55-1.02 [facility] Comment on above: Performed By: #### C MP ####[facility] Scyshpdnmm9333 [place] [address]Dr. Bhavani Barragan EGFR-AF BENINESE 60 mL/min/1.73m2 Normal >=60 [facility] Comment on above: Performed By: #### C MP ####[facility] Igqouzorvp77[address] [place], [place] [address]Dr. Bhavani Barragan EGFR-NON AF BENINESE 49 mL/min/1.73m2 Critically low >=60 [facility] Comment on above: Performed By: #### C MP ####[facility] Tqxbgtetyk1486 [place] [address]Dr. Bhavani Barragan Globulin (S) [Mass/Vol] 3.8 g/dL Normal [facility] Comment on above: Performed By: #### C MP ####[facility] Xqhgaxkvly2390 [place] [address]Dr. Bhavani Barragan Glucose [Mass/Vol] 90 mg/dL Normal 74-106 [facility] Comment on above: Performed By: #### C MP ####[facility] Xigsvhuyge6086 [place] [address]Dr. Bhavani Barragan Potassium [Moles/Vol] 4.0 mmol/L Normal 3.5-5.1 [facility] Comment on above: Performed By: #### C MP ####[facility] Pehdqplspc6[address] [place], [place] [address]Dr. Bhavani Barragan Protein [Mass/Vol] 6.2 g/dL Critically low 6.4-8.2 [facility] Comment on above: Performed By: #### C MP ####[facility] Yboqssobjh37[address] [place], [place] [address]Dr. Bhavani Barragan Sodium [Moles/Vol] 135 mmol/L Critically low 136-145 [facility] Comment on above: Performed By: #### C MP ####[facility] Bjlgkkjttg080[address] [place], [place] [address]Dr. Bhavani Barragan Urea nitrogen [Mass/Vol] 14.0 mg/dL Normal 7.0-18.0 [facility] Comment on above: Performed By: #### C MP ####[facility] Dvmflxsvbu110[address] [place], [place] [address]Dr. Bhavani Barragan Urea nitrogen/Creatinine [Mass ratio] 13.1 mg/mg Normal [facility] Comment on above: Performed By: #### C MP ####[facility] Lzuzzaylst3080 [place] [address]Dr. Bhavani Barragan PROTIMEon 03-26-2022 INR Coag (PPP) [Relative time] 1.31 {INR} Normal [facility] Comment on above: Performed By: #### P T, PTT ####[facility] Eegteteyos37[address] [place], [place] [address]Dr. Bhavani Barragan INR GUIDELINES SEE BELOW Normal The [facility] Comment on above: Result Comment: WALKER RED INR: 2.0 - 3.0 CONDITIONS NOT LISTED BELOW 2.5 - 3.5 FOR PROSTHETIC HEART VALVE REPLACEMENT 2.5 - 3.5 RECURRENT THROMBOSIS Performed By: #### P T, PTT ####[facility] Etvfssinwb50[address] [place], [place] [address]Dr. Bhavani Barragan PT Coag (PPP) [Time] 13.9 s Critically high 9.0-11.6 [facility] Comment on above: Performed By: #### P T, PTT ####[facility] Pfinwdxllk[address] [place], [place] [address]Dr. Bhavani Barragan PTTon 03-26-2022 aPTT Coag (Bld) [Time] 32.8 s Normal 22.3-36.2 [facility] Comment on above: Performed By: #### P T, PTT ####[facility] Jmahhrjmia20[address] [place], [place] [address]Dr. Bhavani Barragan AMMONIAon 03-25-2022 Ammonia (P) [Moles/Vol] 17 umol/L Normal 11-32 [facility] Comment on above: Performed By: #### A MM ####[facility] Ulbtjvjyhh[address] [place], [place] [address]Dr. Bhavani Barragan CBC W MANUAL DIFFon 03-25-20 ATYPICAL LYMPH # Normal [facility] Comment on above: Performed By: #### C BCMAN ####[facility] Fpdjqizhpa01[address] [place], [place] [address]Dr. Bhavani Barragan ATYPICAL LYMPH % Normal [facility] Comment on above: Performed By: #### C BCMAN ####[facility] Mcqifntops199[address] [place], [place] [address]Dr. Bhavani Barragan BAND # 0.3 103/ul Normal 0.0-0.3 [facility] Comment on above: Performed By: #### C BCMAN ####[facility] Ezhkrplyzd4916[address] [place], [place] [address]Dr. Bhavani Barragan BAND % 1 % Normal 0-5 [facility] Comment on above: Performed By: #### C BCMAN ####[facility] Tpoqimhxtb8080 [place] [id number]. Bhavani Barragan BASOM # 0.27 103/ul Critically high 0.00-0.10 [facility] Comment on above: Performed By: #### C BCMAN ####[facility] Qdrwobulhs3082 [place] [address]Dr. Bhavani Barragan BASOM % 1.0 % Normal 0.2-2.0 [facility] Comment on above: Performed By: #### C BCMAN ####[facility] Kankewuvts1313 [place] [address]Dr. Bhavani Barragan BLAST # Normal [facility] Comment on above: Performed By: #### C BCJERSON ####[facility] Qohzfpqosk3494 [place] [address]Dr. Bhavani Barragan BLAST % Normal [facility] Comment on above: Performed By: #### C BCJERSON ####[facility] Fuasjkhvgt[address] [place], [place] [address]Dr. Bhavani Barragan CORRECTED WBC Normal 4.0-11.0 The [facility] Comment on above: Performed By: #### C BCJERSON ####[facility] Knggtyeluo883[address] [place], [place] [address]Dr. Bhavani Barragan EOS # 0.00 103/ul Normal 0.00-0.70 [facility] Comment on above: Performed By: #### C BCJERSON ####[facility] Yvkkodrmes5302 [place] [address]Dr. Bhavani Barragan EOS% 0.0 % Critically low 0.9-7.0 The [facility] Comment on above: Performed By: #### C BCMAN ####[facility] Gyuzvknqgx[address] [place], [place] [address]Dr. Bhavani Barragan HCT 41.6 % Normal 36.0-48.0 [facility] Comment on above: Performed By: #### C BCJERSON ####[facility] Uehgkxpyxe[address] [place], [place] [address]Dr. Bhavani Barragan HGB 12.8 g/dl Normal 12.0-16.0 [facility] Comment on above: Performed By: #### Jany ANNE ####[facility] Hgifbdibry1568 [place] [id number]. Bhavani Barragan LYMPHM # 0.80 103/ul Critically low 1.20-3.80 The [facility] Comment on above: Performed By: #### C OMID ####[facility] Qngwlcpqdw5567 [place] [address]Dr. Bhavani Barragan LYMPHM% 3.0 % Critically low 20.5-60.0 [facility] Comment on above: Performed By: #### Jany ANNE ####[facility] Mmpxxyfbmi23[address] [place] [address]Dr. Bhavani Barragan MCH 29.4 pg Normal 26.7-34.0 [facility] Comment on above: Performed By: #### Jany ANNE ####[facility] Tztztkbmuv4300 [place] [address]Dr. Bhavani Barragan MCHC 30.8 g/dl Normal 29.9-35.2 [facility] Comment on above: Performed By: #### Jany ANNE ####[facility] Flspvnvecc8128 [place] [address]Dr. Bhavani Barragan MCV 95.6 fL Normal 81.0-99.0 [facility] Comment on above: Performed By: #### Jany ANNE ####[facility] Tnvvbmtjmr[address] [place], [place] [address]Dr. Bhavani Barragan METAMYELOCYTE # Normal [facility] Comment on above: Performed By: #### Jany ANNE ####[facility] Urmgafvaob6050 [place] [address]Dr. Bhavani Barragan METAMYELOCYTE % Normal [facility] Comment on above: Performed By: #### C OMID ####[facility] Sqsomjktaf1470 [place] [id number]. Bhavani Barragan MONOM# 0.80 103/ul Normal 0.30-0.80 [facility] Comment on above: Performed By: #### C OMID ####[facility] Rpmhiaeraq8925 [place], [place] [address]Cp. Bhavani Barragan MONOM% 3.0 % Normal 1.7-12.0 [facility] Comment on above: Performed By: #### C OMID ####[facility] Ajpsmkhmrd8587 [place], [place] [address]El. Bhavani Barragan MPV 9.9 fL Normal 9.5-13.5 [facility] Comment on above: Performed By: #### C BCJERSON ####[facility] Nyvmaloenh6925 [place], [place] [address]Zm. Bhavani Barragan MYELOCYTE # Normal [facility] Comment on above: Performed By: #### C OMID ####[facility] Zhumuwkaeq6406 [place], [place] [address]Js. Bhavani Barragan MYELOCYTE % Normal [facility] Comment on above: Performed By: #### C OMID ####[facility] Fkbkrwboht2517 [place], [place] [address]Pp. Bhavani Barragan NRBC Normal [facility] Comment on above: Performed By: #### C OMID ####[facility] Jetillwmit2827 [place], [place] [address]Tu. Bhavani Barragan PLT 448 103/ul Normal 150-450 [facility] Comment on above: Performed By: #### C OMID ####[facility] Zablpfsmng9704 [place], [place] [address]Kf. Bhavani Barragan RBC 4.35 106/ul Normal 4.20-5.40 [facility] Comment on above: Performed By: #### C OMID ####[facility] Hkadvduvdf9619 [place], [place] [address]Ln. Bhavani Barragan RDW 16.0 % Critically high 11.0-15.0 The [facility] Comment on above: Performed By: #### C OMID ####[facility] Nwosmfylgv9337 [place], [place] [address]Ap. Bhavani Barragan SEG # 24.38 103/ul Critically high 1.40-6.50 [facility] Comment on above: Performed By: #### C BCMAN ####[facility] Biyiwetdbf9006 [place] [id number]. Bhavani Barragan SEG % 92.0 % Critically high 43.0-75.0 The [facility] Comment on above: Performed By: #### C BCMAN ####[facility] Sjtdnsixjd5958 [place] [id number]. Bhavani Barragan WBC 26.5 103/ul Critically high 4.0-11.0 The [facility] Comment on above: Performed By: #### C BCMAN ####[facility] Dqwbpsasxo3877 [place] [id number]. Bhavani Barragan DIFFERENTIAL MANUALon 2021 ATYPICAL LYMPH # Normal [facility] Comment on above: Performed By: #### D IFF ####[facility] Rwhtsgtcdp5675 [place] [address]Dr. Bhavani Barragan ATYPICAL LYMPH % Normal [facility] Comment on above: Performed By: #### D IFF ####[facility] Bbhfdaxtns[address] [place], [place] [address]Dr. Bhavani Barragan BAND # 0.3 103/ul Normal 0.0-0.3 The [facility] Comment on above: Performed By: #### D IFF ####[facility] Wnmnvosutl14[address] [place], [place] [address]Dr. Bhavani Barragan BAND % 1 % Normal 0-5 The [facility] Comment on above: Performed By: #### D IFF ####[facility] Oxkwrwvykm7[address] [place], [place] [address]Dr. Bhavani Barragan BASOM # 0.27 103/ul Critically high 0.00-0.10 [facility] Comment on above: Performed By: #### D IFF ####[facility] Zveyuidxaz514[address] [place], [place] [address]Dr. Bhavani Barragan BASOM % 1.0 % Normal 0.2-2.0 The [facility] Comment on above: Performed By: #### D IFF ####[facility] Ijlybmmorb0[address] [place], [place] [address]Dr. Yilan Barragan BLAST # Normal [facility] Comment on above: Performed By: #### D IFF ####[facility] Yjxxepkvmd4859 [place] [address]Dr. Bhavani Barragan BLAST % Normal [facility] Comment on above: Performed By: #### D IFF ####[facility] Wuyncroila2878 [place] [id number]. Bhavani Barragan CORRECTED WBC Normal 4.0-11.0 [facility] Comment on above: Performed By: #### D IFF ####[facility] Rolqdojczp7502 [place] [address]Dr. Bhavani Barragan EOS # 0.00 103/ul Normal 0.00-0.70 [facility] Comment on above: Performed By: #### D IFF ####[facility] Dujizfxton9[address] [place], [place] [address]Dr. Bhavani Barragan EOS% 0.0 % Critically low 0.9-7.0 [facility] Comment on above: Performed By: #### D IFF ####[facility] Vmldqrwrxl[address] [place], [place] [address]Dr. Bhavani Barragan LYMPHM # 0.80 103/ul Critically low 1.20-3.80 [facility] Comment on above: Performed By: #### D IFF ####[facility] Udjzkpwbta[address] [place], [place] [address]Dr. Bhavani Barragan LYMPHM% 3.0 % Critically low 20.5-60.0 The [facility] Comment on above: Performed By: #### D IFF ####[facility] Klivkcenwi6[address] [place], [place] [address]Dr. Bhavani Barragan METAMYELOCYTE # Normal The [facility] Comment on above: Performed By: #### D IFF ####[facility] Csqgkirtim6[address] [place], [place] [address]Dr. Bhavani Barragan METAMYELOCYTE % Normal [facility] Comment on above: Performed By: #### D IFF ####[facility] Tuajfjqvuw[address] [place], [place] [address]Dr. Bhavani Barragan MONOM# 0.80 103/ul Normal 0.30-0.80 [facility] Comment on above: Performed By: #### D IFF ####[facility] Moodwwcoxm0628 [place] [id number]. Bhavani Barragan MONOM% 3.0 % Normal 1.7-12.0 [facility] Comment on above: Performed By: #### D IFF ####[facility] Douoxozrdo0810 [place] [id number]. Bhavani Barragan MYELOCYTE # Normal [facility] Comment on above: Performed By: #### D IFF ####[facility] Zlstpmbmtc2425 [place] [address]Dr. Bhavani Barragan MYELOCYTE % Normal [facility] Comment on above: Performed By: #### D IFF ####[facility] Sghnqoytth8391 [place] [address]Dr. Bhavani Barragan NRBC Normal [facility] Comment on above: Performed By: #### D IFF ####[facility] Wcviutgqff9979 [place] [id number]. Bhavani Barragan SEG # 24.38 103/ul Critically high 1.40-6.50 [facility] Comment on above: Performed By: #### D IFF ####[facility] Jftpzqqkzx0141 [place] [id number]. Bhavani Barragan SEG % 92.0 % Critically high 43.0-75.0 The [facility] Comment on above: Performed By: #### D IFF ####[facility] Kesgjzlzuw4323 [place] [id number]. Bhavani Barragan WBC 26.5 103/ul Critically high 4.0-11.0 [facility] Comment on above: Performed By: #### D IFF ####[facility] Ldhavlvnxt7967 [place] [address]Dr. Bhavani Barragan POINT OF CARE GLUCOSEon 05-0 Glucose [Mass/Vol] 120 mg/dL Critically high 74-106 T [facility] Comment on above: Performed By: #### P OCGLUC ####[facility] Zverfzfpxn8373 [place] [address]Dr. Bhavani Barragan Glucose [Mass/Vol] 98 mg/dL Normal 74-106 [facility] Comment on above: Performed By: #### P OCGLUC ####[facility] Gbxkprcfnv1749 [place] [address]Dr. Bhavani Barragan PROF 14(COMP METB)on 022 Albumin [Mass/Vol] 2.3 g/dL Critically low 3.4-5.0 Th [facility] Comment on above: Performed By: #### C MP ####[facility] Swauatytwe8733 [place] [address]Dr. Bhavani Barragan Albumin/Globulin [Mass ratio] 0.6 {ratio} Normal [facility] Comment on above: Performed By: #### C MP ####[facility] Ngbsfikvrl3290 [place] [address]Dr. Bhavani Barragan ALP [Catalytic activity/Vol] 309 U/L Critically high 46-116 [facility] Comment on above: Performed By: #### C MP ####[facility] Oiobpgbxcb1995 [place] [address]Dr. Bhavani Barragan ALT [Catalytic activity/Vol] 163 U/L Critically high 14-59 [facility] Comment on above: Performed By: #### C MP ####[facility] Ypidxxuhbt9673 [place] [address]Dr. Bhavani Barragan Anion gap [Moles/Vol] 12.2 mmol/L Normal [facility] Comment on above: Performed By: #### C MP ####[facility] Hsukbowfjg1680 [place] [address]Dr. Bhavani Barragan AST [Catalytic activity/Vol] 103 U/L Critically high 15-37 [facility] Comment on above: Performed By: #### C MP ####[facility] Kaitbdbffb4193 [place] [address]Dr. Bhavani Barragan Bilirubin [Mass/Vol] 1.5 mg/dL Critically high 0.2-1.0 [facility] Comment on above: Performed By: #### C MP ####[facility] Aleprjitej4290 [place] [address]Dr. Bhavani Barragan Calcium [Mass/Vol] 7.3 mg/dL Critically low 8.5-10.1 Th [facility] Comment on above: Performed By: #### C MP ####[facility] Krfwzmjdjz2341 [place] [address]Dr. Bhavani Barragan Chloride [Moles/Vol] 107 mmol/L Normal 98-107 [facility] Comment on above: Performed By: #### C MP ####[facility] Kuhdmqxsah7433 [place] [address]Dr. Bhavani Barragan CO2 [Moles/Vol] 21.9 mmol/L Normal 21.0-32.0 [facility] Comment on above: Performed By: #### C MP ####[facility] Quasmfnrzz[address] [place], [place] [address]Dr. Bhavani Barragan Creatinine [Mass/Vol] 1.22 mg/dL Critically high 0.55-1.02 [facility] Comment on above: Performed By: #### C MP ####[facility] Ztxjpgojtl[address] [place], [place] [address]Dr. Bhavani Barragan EGFR-AF BENINESE 51 mL/min/1.73m2 Critically low >=60 [facility] Comment on above: Performed By: #### C MP ####[facility] R[address]ufvfdhj4[address] [place], [place] [address]Dr. Bhavani Barragan EGFR-NON AF BENINESE 42 mL/min/1.73m2 Critically low >=60 [facility] Comment on above: Performed By: #### C MP ####[facility] [address] [place], [place] [address]Dr. Bhavani Barragan Globulin (S) [Mass/Vol] 3.7 g/dL Normal [facility] Comment on above: Performed By: #### C MP ####[facility] Yblpfhyrvn2964[address] [place], [place] [address]Dr. Bhavani Laurel Glucose [Mass/Vol] 165 mg/dL Critically high 74-106 [facility] Comment on above: Performed By: #### C MP ####[facility] [address]cpry[address] [place] [address]Dr. Jayceeroxi Laurel Potassium [Moles/Vol] 4.1 mmol/L Normal 3.5-5.1 [facility] Comment on above: Performed By: #### C MP ####[facility] Ryqyfyaobt75[address] [place] [address]Dr. Bhavani Barargan Protein [Mass/Vol] 6.0 g/dL Critically low 6.4-8.2 Th [facility] Comment on above: Performed By: #### C MP ####[facility] Hsagqhxrpc47[address] [place], [place] [address]Dr. Bhavani Barragan Sodium [Moles/Vol] 137 mmol/L Normal 136-145 [facility] Comment on above: Performed By: #### C MP ####[facility] Nizngwucuz5[address] [place], [place] [address]Dr. Bhavani Barragan Urea nitrogen [Mass/Vol] 18.0 mg/dL Normal 7.0-18.0 [facility] Comment on above: Performed By: #### C MP ####[facility] Zzbaadaphq[address] [place], [place] [address]Dr. Bhavani Barragan Urea nitrogen/Creatinine [Mass ratio] 14.8 mg/mg Normal [facility] Comment on above: Performed By: #### C MP ####[facility] Juanmcnvsr7177[address] [place], [place] [address]Dr. Bhavani Barragan PROTIMEon 03-25-2022 INR Coag (PPP) [Relative time] 1.18 {INR} Normal [facility] Comment on above: Performed By: #### P TT, PT ####[facility] Yesctdobfx7365[address] [place], [place] [address]Dr. Bhavani Barragan INR GUIDELINES SEE BELOW Normal [facility] Comment on above: Result Comment: WALKER RED INR: 2.0 - 3.0 CONDITIONS NOT LISTED BELOW 2.5 - 3.5 FOR PROSTHETIC HEART VALVE REPLACEMENT 2.5 - 3.5 RECURRENT THROMBOSIS Performed By: #### P TT, PT ####[facility] [address]ibnnx[address] [place], [place] [id number]. Bhavani Barragan PT Coag (PPP) [Time] 12.6 s Critically high 9.0-11.6 The [facility] Comment on above: Performed By: #### P TT, PT ####[facility] Jiabxfvuql[address] [place] [address]Dr. Bhavani Barragan PTTon 03-25-2022 aPTT Coag (Bld) [Time] 30.6 s Normal 22.3-36.2 The [facility] Comment on above: Performed By: #### P TT, PT ####[facility] G[address]pgmpbmc[address] [place] [address]Dr. Bhavani Barragan AMMONIAon 03-24-2022 Ammonia (P) [Moles/Vol] 38 umol/L Critically high 11-32 The [facility] Comment on above: Performed By: #### A MM ####[facility] Fuenqsddqv25[address] [place], [place] [address]Dr. Bhavani Barragan BNPon 03-24-2022 Natriuretic peptide B (Bld) [Mass/Vol] 2420.0 pg/mL Critically high <=1,800.0 The [facility] Comment on above: Result Comment: repe ated Performed By: #### B WILDLIFE CONTROL OPERATOR, CMP ####[facility] Wrfuxwcrfm60[address] [place], [place] [address]Dr. Bhavani Barragan CARDIAC ANDREA 3-6on 2 CK [Catalytic activity/Vol] 20 U/L Critically low 26-192 The [facility] Comment on above: Performed By: #### C MREP ####[facility] Xldyprsvup4[address] [place], [place] [address]Dr. Bhavani Barragan CK.MB [Mass/Vol] ng/mL Normal <=3.60 [facility] Comment on above: Performed By: #### C MREP ####[facility] Rzbspfderx[address] [place], [place] [address]Dr. Bhavani Barragan HSTROP 42.4 pg/mL Normal 4.0-51.3 The [facility] Comment on above: Result Comment: CUT- OFF POINTS HAVE BEEN ESTABLISHED BASED ON THE FOURTH UNIVERSAL DEFINITIONS OF MYOCARDIALINFARCTION. THE UPPER REFERENCE LIMIT (URL) OF TROPONIN, DEFINED THE 99TH PERCENTILE OFcTnI DISTRIBUTION IN A REFERENCE POPULATION, HAS BEEN CONFIRMED THE DECISION THRESHOLDFOR ID DIAGNOSIS. Performed By: #### C MREP ####[facility] Ackflprunf[address] [place] [address]Dr. Bhavani Barragan CK [Catalytic activity/Vol] 17 U/L Critically low 26-192 The [facility] Comment on above: Performed By: #### C MREP ####[facility] Vtrwkltbjj6168 [place] [address]Dr. Bhavani Barragan CK.MB [Mass/Vol] 0.51 ng/mL Normal <=3.60 [facility] Comment on above: Performed By: #### C MREP ####[facility] Ndodueagab33[address] [place] [address]Dr. Bhavani Barragan HSTROP 45.4 pg/mL Normal 4.0-51.3 The [facility] Comment on above: Result Comment: CUT- OFF POINTS HAVE BEEN ESTABLISHED BASED ON THE FOURTH UNIVERSAL DEFINITIONS OF MYOCARDIALINFARCTION. THE UPPER REFERENCE LIMIT (URL) OF TROPONIN, DEFINED THE 99TH PERCENTILE OFcTnI DISTRIBUTION IN A REFERENCE POPULATION, HAS BEEN CONFIRMED THE DECISION THRESHOLDFOR ID DIAGNOSIS. Performed By: #### C CESARP ####[facility] [address]jzbg[address] [place] [address]Dr. Bhavani Barragan CBC W MANUAL DIFFon 03-24-20 22 ANISOCYTOSIS 1+ Normal The [facility] Comment on above: Performed By: #### Jany ANNE ####[facility] T[address]ozchl[address] [place] [address]Dr. Bhavani Barragan ATYPICAL LYMPH # Normal [facility] Comment on above: Performed By: #### C ALICIAMAN ####[facility] Zjpkphpnbq05[address] [place] [address]Dr. Bhavani Barragan ATYPICAL LYMPH % Normal [facility] Comment on above: Performed By: #### C OMID ####[facility] Cqgtqgcbdd20[address] [place] [address]Dr. Bhavani Barragan BAND # 0.8 103/ul Critically high 0.0-0.3 The [facility] Comment on above: Performed By: #### C BCMAN ####[facility] [address]ys[address]qbu[address] [place] [id number]. Jayceelan Barragan BAND % 3 % Normal 0-5 The [facility] Comment on above: Performed By: #### C BCMAN ####[facility] Naqhdghsjb1656 [place] [id number]. Yilan Barragan BASOM # 0.00 103/ul Normal 0.00-0.10 The [facility] Comment on above: Performed By: #### C BCMAN ####[facility] Xzliktaskj4930 [place] [id number]. Yiroxi Barragan BASOM % 0.0 % Critically low 0.2-2.0 The [facility] Comment on above: Performed By: #### C BCMAN ####[facility] Exjntktfbo4[address] [place] [address]Dr. Yilan Barragan BLAST # Normal The [facility] Comment on above: Performed By: #### C BCJERSON ####[facility] Vyjuppifaf[address] [place] [address]Dr. Yilan Barragan BLAST % Normal The [facility] Comment on above: Performed By: #### C BCMAN ####[facility] Mpveoyyvpu[address] [place], [place] [address]Dr. Bhavani Barragan CORRECTED WBC Normal 4.0-11.0 The [facility] Comment on above: Performed By: #### C BCMAN ####[facility] [address]oz[address] [place], [place] [address]Dr. Yiroxi Barragan EOS # 0.00 103/ul Normal 0.00-0.70 The [facility] Comment on above: Performed By: #### C BCMAN ####[facility] Cnvhoqtqqw15[address] [place], [place] [address]Dr. Yiroxi Barragan EOS% 0.0 % Critically low 0.9-7.0 The [facility] Comment on above: Performed By: #### C BCMAN ####[facility] Xzxmepsqba[address] [place], [place] [address]Dr. Yilan Barragan HCT 44.0 % Normal 36.0-48.0 [facility] Comment on above: Performed By: #### C OMID ####[facility] Iengicuwuu[address]88 [place] [id number]. Bhavani Barragan HGB 13.3 g/dl Normal 12.0-16.0 [facility] Comment on above: Performed By: #### C OMID ####[facility] Rlaumlpmwp8962 [place] [id number]. Bhavani Barragan LYMPHM # 1.08 103/ul Critically low 1.20-3.80 [facility] Comment on above: Performed By: #### C OMID ####[facility] Jkgtazqxtk6517 [place] [id number]. Bhavani Barragan LYMPHM% 4.0 % Critically low 20.5-60.0 [facility] Comment on above: Performed By: #### C OMID ####[facility] Gpqadhpjmr0892 [place] [id number]. Bhavani Barragan MCH 29.6 pg Normal 26.7-34.0 [facility] Comment on above: Performed By: #### C OMID ####[facility] Hjbvjyiijn5817 [place] [id number]. Bhavani Barragan MCHC 30.2 g/dl Normal 29.9-35.2 [facility] Comment on above: Performed By: #### C OMID ####[facility] Beovsgqfez9985 [place] [id number]. Bhavani Barragan MCV 97.8 fL Normal 81.0-99.0 The [facility] Comment on above: Performed By: #### C OMID ####[facility] On[address] [place], [place] [address]Pt. Bhavani Barragan METAMYELOCYTE # Normal The [facility] Comment on above: Performed By: #### C OMID ####[facility] B[address]wrsrvsl5[address] [place], [place] [address]Nu. Bhavani Barragan METAMYELOCYTE % Normal The [facility] Comment on above: Performed By: #### C OMID ####[facility] Ozymxylxex8637 [place] [id number]. Bhavani Barragan MONOM# 0.54 103/ul Normal 0.30-0.80 The [facility] Comment on above: Performed By: #### C OMID ####[facility] Jrlcdghpxk7435 [place] [id number]. Bhavani Barragan MONOM% 2.0 % Normal 1.7-12.0 [facility] Comment on above: Performed By: #### C OMID ####[facility] Rhiwczwyac0167 [place] [id number]. Bhavani Barragan MPV 10.3 fL Normal 9.5-13.5 The [facility] Comment on above: Performed By: #### C OMID ####[facility] Ignifvdarq[address] [place], [place] [address]Dr. Bhavani Barragan MYELOCYTE # Normal The [facility] Comment on above: Performed By: #### C OMID ####[facility] Ihtzarpsdj[address] [place], [place] [address]Dr. Bhavani Barragan MYELOCYTE % Normal The [facility] Comment on above: Performed By: #### C OMID ####[facility] Qgofmklxtl[address] [place], [place] [address]Dr. Bhavani Barragan NRBC Normal The [facility] Comment on above: Performed By: #### C OMID ####[facility] Tnwcovduqv6687 [place] [phone]. Bhavani Barragan PLT 424 103/ul Normal 150-450 The [facility] Comment on above: Performed By: #### C OMID ####[facility] Vbsqvkjege8400 [place] [id number]. Bhavani Barragan RBC 4.50 106/ul Normal 4.20-5.40 The [facility] Comment on above: Performed By: #### C OMID ####[facility] Sqkloxcfjk2385 [place] [id number]. Bhavani Barragan RDW 15.9 % Critically high 11.0-15.0 The [facility] Comment on above: Performed By: #### C OMID ####[facility] Uhrxfkmpps4637 [place], [place] [address]Hg. Bhavani Barragan SEG # 24.48 103/ul Critically high 1.40-6.50 [facility] Comment on above: Performed By: #### C BCMAN ####[facility] Zmpoiaziwz5698 [place], [place] [address]Zh. Bhavani Barragan SEG % 91.0 % Critically high 43.0-75.0 [facility] Comment on above: Performed By: #### C BCJERSON ####[facility] Ruvrmalbxg[address] [place], [place] [address]Zj. Bhavani Barragan WBC 26.9 103/ul Critically high 4.0-11.0 [facility] Comment on above: Performed By: #### C BCJERSON ####[facility] Lntumtydcx2393 [place] [id number]. Bhavani Barragan CULTURE URINEon 03-24-2022 CULTURE URINE Normal [facility] Comment on above: Performed By: #### U RCX ####[facility] Ajyogmltjq9759 [place] [phone]. Bhavani Laurel POINT OF CARE GLUCOSEon Glucose [Mass/Vol] 113 mg/dL Critically high 74-106 [facility] Comment on above: Performed By: #### P OCGLUC ####[facility] Otkvfswdok0649 [place] [id number]. Bhavani Barragan Glucose [Mass/Vol] 103 mg/dL Normal 74-106 [facility] Comment on above: Performed By: #### P OCGLUC ####[facility] Esfmzpredk6920 [place] [id number]. Bhavani Barragan Glucose [Mass/Vol] 134 mg/dL Critically high 74-106 [facility] Comment on above: Performed By: #### P OCGLUC ####[facility] Uslictsbje0755 [place] [phone]. Bhavani Barragan PROF 14(COMP METB)on 022 Albumin [Mass/Vol] 2.3 g/dL Critically low 3.4-5.0 [facility] Comment on above: Performed By: #### B WILDLIFE CONTROL OPERATOR, CMP ####[facility] Atkjmeczzh8730 [place] [address]Dr. Bhavani Barragan Albumin/Globulin [Mass ratio] 0.6 {ratio} Normal [facility] Comment on above: Performed By: #### B WILDLIFE CONTROL OPERATOR, CMP ####[facility] Zzetlacczy1232 [place] [address]Dr. Bhavani Barragan ALP [Catalytic activity/Vol] 239 U/L Critically high 46-116 [facility] Comment on above: Performed By: #### B WILDLIFE CONTROL OPERATOR, CMP ####[facility] Jzgnbiites9268 [place] [address]Dr. Bhavani Barragan ALT [Catalytic activity/Vol] 185 U/L Critically high 14-59 [facility] Comment on above: Performed By: #### B WILDLIFE CONTROL OPERATOR, CMP ####[facility] Vkjcjvfubn[address] [place], [place] [address]Dr. Bhavani Barragan Anion gap [Moles/Vol] 13.8 mmol/L Normal [facility] Comment on above: Performed By: #### B WILDLIFE CONTROL OPERATOR, CMP ####[facility] Shryknynie6[address] [place], [place] [address]Dr. Bhavani Barragan AST [Catalytic activity/Vol] 64 U/L Critically high 15-37 [facility] Comment on above: Performed By: #### B WILDLIFE CONTROL OPERATOR, CMP ####[facility] Toplywzfhb6464 [place] [address]Dr. Bhavani Barragan Bilirubin [Mass/Vol] 0.6 mg/dL Normal 0.2-1.0 [facility] Comment on above: Performed By: #### B WILDLIFE CONTROL OPERATOR, CMP ####[facility] Xqomwepapz2319 [place] [address]Dr. Bhavani Barragan Calcium [Mass/Vol] 7.3 mg/dL Critically low 8.5-10.1 Th [facility] Comment on above: Performed By: #### B WILDLIFE CONTROL OPERATOR, CMP ####[facility] Lnapvizqer2422 [place] [address]Dr. Bhavani Barragan Chloride [Moles/Vol] 105 mmol/L Normal 98-107 [facility] Comment on above: Performed By: #### B WILDLIFE CONTROL OPERATOR, CMP ####[facility] Zpvsvfmccb2746 [place] [address]Dr. Bhavani Barragan CO2 [Moles/Vol] 20.9 mmol/L Critically low 21.0-32.0 [facility] Comment on above: Performed By: #### B WILDLIFE CONTROL OPERATOR, CMP ####[facility] Wncaywwdce[address] [place], [place] [address]Dr. Bhavani Laurel Creatinine [Mass/Vol] 1.24 mg/dL Critically high 0.55-1.02 [facility] Comment on above: Performed By: #### B WILDLIFE CONTROL OPERATOR, CMP ####[facility] Ewrtwvtqfy[address] [place], [place] [address]Dr. Bhavani Laurel EGFR-AF BENINESE 50 mL/min/1.73m2 Critically low >=60 [facility] Comment on above: Performed By: #### B WILDLIFE CONTROL OPERATOR, CMP ####[facility] Lkbytjxwzb112[address] [place], [place] [address]Dr. Jayceeroxi Laurel EGFR-NON AF BENINESE 41 mL/min/1.73m2 Critically low >=60 [facility] Comment on above: Performed By: #### B WILDLIFE CONTROL OPERATOR, CMP ####[facility] Uhvctcnxvr326[address] [place], [place] [address]Dr. Bhavani Laurel Globulin (S) [Mass/Vol] 3.8 g/dL Normal [facility] Comment on above: Performed By: #### B WILDLIFE CONTROL OPERATOR, CMP ####[facility] Gjqugfshhh6[address] [place], [place] [address]Dr. Jayceeroxi Laurel Glucose [Mass/Vol] 164 mg/dL Critically high 74-106 T [facility] Comment on above: Performed By: #### B WILDLIFE CONTROL OPERATOR, CMP ####[facility] Cufvpxoabw97[address] [place], [place] [address]Dr. Jayceeroxi Laurel Potassium [Moles/Vol] 3.7 mmol/L Normal 3.5-5.1 [facility] Comment on above: Performed By: #### B WILDLIFE CONTROL OPERATOR, CMP ####[facility] Rcryfxkqbg6776[address] [place], [place] [address]Dr. Bhavani Barragan Protein [Mass/Vol] 6.1 g/dL Critically low 6.4-8.2 Th e [facility] Comment on above: Performed By: #### B WILDLIFE CONTROL OPERATOR, CMP ####[facility] Ewfkhanpcj426[address] [place], [place] [address]Dr. Bhavani Barragan Sodium [Moles/Vol] 136 mmol/L Normal 136-145 [facility] Comment on above: Performed By: #### B WILDLIFE CONTROL OPERATOR, CMP ####[facility] Dqubrwofmw24[address] [place], [place] [address]Dr. Bhavani Barragan Urea nitrogen [Mass/Vol] 23.0 mg/dL Critically high 7.0-18.0 [facility] Comment on above: Performed By: #### B WILDLIFE CONTROL OPERATOR, CMP ####[facility] Hnmietakrx[address] [place], [place] [address]Dr. Bhavani Barragan Urea nitrogen/Creatinine [Mass ratio] 18.5 mg/mg Normal [facility] Comment on above: Performed By: #### B WILDLIFE CONTROL OPERATOR, CMP ####[facility] Vuxpfynseb89[address] [place], [place] [address]Dr. Bhavani Barragan PROTIMEon 03-24-2022 INR Coag (PPP) [Relative time] 1.19 {INR} Normal [facility] Comment on above: Performed By: #### P TT, PT ####[facility] Rqleboxfnk66[address] [place], [place] [address]Dr. Bhavani Barragan INR GUIDELINES SEE BELOW Normal The [facility] Comment on above: Result Comment: WALKER RED INR: 2.0 - 3.0 CONDITIONS NOT LISTED BELOW 2.5 - 3.5 FOR PROSTHETIC HEART VALVE REPLACEMENT 2.5 - 3.5 RECURRENT THROMBOSIS Performed By: #### P TT, PT ####[facility] Tnjplooawd24[address] [place], [place] [address]Dr. Bhavani Barragan PT Coag (PPP) [Time] 12.7 s Critically high 9.0-11.6 [facility] Comment on above: Performed By: #### P TT, PT ####[facility] Cyycnxrnil[address] [place], [place] [address]Dr. Bhavani Barragan PTTon 03-24-2022 aPTT Coag (Bld) [Time] 29.4 s Normal 22.3-36.2 The [facility] Comment on above: Performed By: #### P TT, PT ####[facility] Zdqoeyrpuz24[address] [place], [place] [address]Dr. Bhavani Barragan AMMONIAon 03-23-2022 Ammonia (P) [Moles/Vol] 26 umol/L Normal 11-32 The [facility] Comment on above: Performed By: #### A MM ####[facility] Cxztmlatoe1926[address] [place], [place] [address]Dr. Bhavani Barragan AMYLASEon 03-23-2022 Amylase [Catalytic activity/Vol] 21 U/L Critically low 25-115 The [facility] Comment on above: Performed By: #### A MY LIPA, BNP ####[facility] Azmlyoolsl07[address] [place], [place] [address]Dr. Bhavani Barragan BNPon 03-23-2022 Natriuretic peptide B (Bld) [Mass/Vol] 6713.0 pg/mL Critically high <=1,800.0 The [facility] Comment on above: Result Comment: repe ated Performed By: #### B WILDLIFE CONTROL OPERATOR, CMP ####[facility] Kleeguxfvz[address] [place], [place] [address]Dr. Bhavani Barragan Natriuretic peptide B (Bld) [Mass/Vol] 6961.0 pg/mL Critically high <=1,800.0 The [facility] Comment on above: Performed By: #### A MY LIPA, BNP ####[facility] Xnmgkzpeco[address] [place], [place] [address]Dr. Bhavani Barragan CBC W MANUAL DIFFon 03-23-20 22 ANISOCYTOSIS 1+ Normal The [facility] Comment on above: Performed By: #### C BCMAN ####[facility] Zpyfpaclxg[address] [place], [place] [address]Dr. Bhavani Barragan ATYPICAL LYMPH # Normal [facility] Comment on above: Performed By: #### C BCJERSON ####[facility] Uwjtfgkgsx[address] [place], [place] [address]Dr. Bhavani Barragan ATYPICAL LYMPH % Normal [facility] Comment on above: Performed By: #### C BCMAN ####[facility] Nlqcqxkjbl2281 [place], [place] [address]Ym. Yilan Barragan BAND # 0.6 103/ul Critically high 0.0-0.3 The [facility] Comment on above: Performed By: #### C BCMAN ####[facility] Tjykgeelpa39[address] [place] [id number]. Yilan Barragan BAND % 2 % Normal 0-5 The [facility] Comment on above: Performed By: #### C BCMAN ####[facility] Pdhxtbjdfy7208 [place] [address]Dr. Yilan Barragan BASOM # 0.00 103/ul Normal 0.00-0.10 The [facility] Comment on above: Performed By: #### C BCJERSON ####[facility] Rxjeadeljh3004 [place] [address]Dr. Yilan Barragan BASOM % 0.0 % Critically low 0.2-2.0 The [facility] Comment on above: Performed By: #### C BCJERSON ####[facility] Anjfmlfdnv7[address] [place] [address]Dr. Yilan Barragan BLAST # Normal [facility] Comment on above: Performed By: #### C BCJERSON ####[facility] Ycsatfstyq1360 [place] [address]Dr. Yilan Barragan BLAST % Normal The [facility] Comment on above: Performed By: #### C BCJERSON ####[facility] Icddhwbsfe4202 [place] [address]Dr. Yilan Barragan CORRECTED WBC Normal 4.0-11.0 The [facility] Comment on above: Performed By: #### C BCJERSON ####[facility] Vgtqjktrly3816 [place] [address]Dr. Yilan Barragan EOS # 0.30 103/ul Normal 0.00-0.70 The [facility] Comment on above: Performed By: #### C BCMAN ####[facility] Ymfmpxuavn3109 [place] [address]Dr. Yilan Barragan EOS% 1.0 % Normal 0.9-7.0 The [facility] Comment on above: Performed By: #### C OMID ####[facility] Prvwytbznf7325 [place], [place] [address]Br. Bhavani Barragan HCT 48.1 % Critically high 36.0-48.0 The [facility] Comment on above: Performed By: #### C OMID ####[facility] [facility] Hlhjnhjmfh67[address] [place], [place] [address]Ef. Bhavani Barragan HGB 14.6 g/dl Normal 12.0-16.0 [facility] Comment on above: Performed By: #### C OMID ####[facility] Emjuupxrxo6580 [place], [place] [address]Yx. Bhavani Barragan LYMPHM # 0.90 103/ul Critically low 1.20-3.80 The [facility] Comment on above: Performed By: #### C OMID ####[facility] Jcvdprskmn1599 [place], [place] [address]Fi. Bhavani Barragan LYMPHM% 3.0 % Critically low 20.5-60.0 The [facility] Comment on above: Performed By: #### C OMID ####[facility] Uslrusyzre0261 [place], [place] [address]Je. Bhavani Barragan MCH 29.4 pg Normal 26.7-34.0 The [facility] Comment on above: Performed By: #### C OMID ####[facility] Lajyqviika78[address] [place] [id number]. Bhavani Barragan MCHC 30.4 g/dl Normal 29.9-35.2 The [facility] Comment on above: Performed By: #### C OMID ####[facility] Sjgbmgkuvs2989 [place], [place] [address]Ay. Bhavani Barragan MCV 96.8 fL Normal 81.0-99.0 The [facility] Comment on above: Performed By: #### C OMID ####[facility] Yuzaifyihd5497 [place], [place] [address]Ls. Bhavani Barragan METAMYELOCYTE # Normal The [facility] Comment on above: Performed By: #### C OMID ####[facility] Xwdzcbdhcx0543 [place] [id number]. Bhavani Barragan METAMYELOCYTE % Normal The [facility] Comment on above: Performed By: #### C OMID ####[facility] Zyjbihjhvz0507 [place] [id number]. Bhavani Barragan MONOM# 0.60 103/ul Normal 0.30-0.80 [facility] Comment on above: Performed By: #### C OMID ####[facility] Znaquhjviq6576 [place] [id number]. Bhavani Barragan MONOM% 2.0 % Normal 1.7-12.0 [facility] Comment on above: Performed By: #### C OMID ####[facility] Olsggqilmf[address] [place], [place] [address]Dr. Bhavani Barragan MPV 10.2 fL Normal 9.5-13.5 [facility] Comment on above: Performed By: #### C OMID ####[facility] Eos[address]wweb[address] [place], [place] [address]Dr. Bhavani Barragan MYELOCYTE # Normal The [facility] Comment on above: Performed By: #### C OMID ####[facility] Zdrxcodpwl[address] [place], [place] [address]Dr. Bhavani Barragan MYELOCYTE % Normal The [facility] Comment on above: Performed By: #### C OMID ####[facility] Veoxfslzhi[address] [place], [place] [address]Dr. Bhavani Barragan NRBC Normal The [facility] Comment on above: Performed By: #### C OMID ####[facility] Zfpitceksi6942 [place] [id number]. Bhavani Barragan PLT 391 103/ul Normal 150-450 The [facility] Comment on above: Performed By: #### C OMID ####[facility] Xqkumhpubi[address] [place], [place] [address]Dr. Bhavani Barragan RBC 4.97 106/ul Normal 4.20-5.40 The [facility] Comment on above: Performed By: #### C OMID ####[facility] Paogltyagc[address] [place], [place] [address]Dr. Bhavani Barragan RDW 15.8 % Critically high 11.0-15.0 [facility] Comment on above: Performed By: #### C OMID ####[facility] Suqpgryzgq6034 [place] [address]Dr. Bhavani Barragan SEG # 27.60 103/ul Critically high 1.40-6.50 [facility] Comment on above: Performed By: #### C BCMAN ####[facility] Yqyftwnldy4961 [place] [address]Dr. Bhavani Barragan SEG % 92.0 % Critically high 43.0-75.0 [facility] Comment on above: Performed By: #### C OMID ####[facility] Zurgdgfvcx1808 [place] [address]Dr. Bhavani Barragan WBC 30.0 103/ul Critically high 4.0-11.0 [facility] Comment on above: Performed By: #### C OMID ####[facility] Oetjkpxlkh0580 [place] [address]Dr. Bhavani Barragan LIPASEon 03-23-2022 Lipase [Catalytic activity/Vol] 35.0 U/L Critically low 73.0-393.0 [facility] Comment on above: Performed By: #### A MY, LIPA, BNP ####[facility] Cfrjpslqls6422 [place] [address]Dr. Bhavani Barragan POINT OF CARE GLUCOSEon -0 Glucose [Mass/Vol] 141 mg/dL Critically high 74-106 [facility] Comment on above: Performed By: #### P OCGLUC ####[facility] Msklrooxek4584 [place] [address]Dr. Bhavani Barragan Glucose [Mass/Vol] 107 mg/dL Critically high 74-106 [facility] Comment on above: Performed By: #### P OCGLUC ####[facility] Trszleyamp2801 [place] [address]Dr. Bhavani Barragan Glucose [Mass/Vol] 152 mg/dL Critically high 74-106 [facility] Comment on above: Performed By: #### P OCGLUC ####[facility] Gqsbnheqxf1836 [place] [id number]. Bhavani Barragan PROF 14(COMP METB)on 022 Albumin [Mass/Vol] 2.4 g/dL Critically low 3.4-5.0 Th [facility] Comment on above: Performed By: #### B WILDLIFE CONTROL OPERATOR, CMP ####[facility] Senqkmninr8598 [place] [address]Dr. Bhavani Barragan Albumin/Globulin [Mass ratio] 0.6 {ratio} Normal [facility] Comment on above: Performed By: #### B WILDLIFE CONTROL OPERATOR, CMP ####[facility] Egmzxaxacd9807 [place] [address]Dr. Bhavani Barragan ALP [Catalytic activity/Vol] 298 U/L Critically high 46-116 [facility] Comment on above: Performed By: #### B WILDLIFE CONTROL OPERATOR, CMP ####[facility] Yircmhymkc0062 [place] [address]Dr. Bhavani Barragan ALT [Catalytic activity/Vol] 280 U/L Critically high 14-59 [facility] Comment on above: Performed By: #### B WILDLIFE CONTROL OPERATOR, CMP ####[facility] Xwemrvtewr0094 [place] [address]Dr. Bhavani Barragan Anion gap [Moles/Vol] 15.2 mmol/L Normal [facility] Comment on above: Performed By: #### B WILDLIFE CONTROL OPERATOR, CMP ####[facility] Wtusfzqiuq1502 [place] [address]Dr. Bhavani Barragan AST [Catalytic activity/Vol] 146 U/L Critically high 15-37 [facility] Comment on above: Performed By: #### B WILDLIFE CONTROL OPERATOR, CMP ####[facility] Gztxtkbvtj8563 [place] [address]Dr. Bhavani Barragan Bilirubin [Mass/Vol] 1.8 mg/dL Critically high 0.2-1.0 [facility] Comment on above: Performed By: #### B WILDLIFE CONTROL OPERATOR, CMP ####[facility] Prvpzpcvnc6457 [place] [address]Dr. Bhavani Barragan Calcium [Mass/Vol] 7.7 mg/dL Critically low 8.5-10.1 e [facility] Comment on above: Performed By: #### B WILDLIFE CONTROL OPERATOR, CMP ####[facility] Rcdiucjcke[address] [place], [place] [address]Dr. Bhavani Barragan Chloride [Moles/Vol] 105 mmol/L Normal 98-107 [facility] Comment on above: Performed By: #### B WILDLIFE CONTROL OPERATOR, CMP ####[facility] Miiszsukpx10[address] [place], [place] [address]Dr. Bhavani Barragan CO2 [Moles/Vol] 22.0 mmol/L Normal 21.0-32.0 [facility] Comment on above: Performed By: #### B WILDLIFE CONTROL OPERATOR, CMP ####[facility] Ahmoyrxdpk8[address] [place], [place] [address]Dr. Bhavani Barragan Creatinine [Mass/Vol] 1.44 mg/dL Critically high 0.55-1.02 [facility] Comment on above: Performed By: #### B WILDLIFE CONTROL OPERATOR, CMP ####[facility] Ltxwgvixkf4[address] [place], [place] [address]Dr. Bhavani Barragan EGFR-AF BENINESE 42 mL/min/1.73m2 Critically low >=60 [facility] Comment on above: Performed By: #### B WILDLIFE CONTROL OPERATOR, CMP ####[facility] Zgnefaaogu[address] [place], [place] [address]Dr. Bhavani Barragan EGFR-NON AF BENINESE 35 mL/min/1.73m2 Critically low >=60 [facility] Comment on above: Performed By: #### B WILDLIFE CONTROL OPERATOR, CMP ####[facility] Pmgekwseqr75[address] [place], [place] [address]Dr. Bhavani Barragan Globulin (S) [Mass/Vol] 4.0 g/dL Normal [facility] Comment on above: Performed By: #### B WILDLIFE CONTROL OPERATOR, CMP ####[facility] Ybpwjyvxnh725[address] [place], [place] [address]Dr. Bhavani Barragan Glucose [Mass/Vol] 136 mg/dL Critically high 74-106 T [facility] Comment on above: Performed By: #### B WILDLIFE CONTROL OPERATOR, CMP ####[facility] Wrhkkenmgp677[address] [place], [place] [address]Dr. Bhavani Barragan Potassium [Moles/Vol] 4.2 mmol/L Normal 3.5-5.1 The [facility] Comment on above: Performed By: #### B WILDLIFE CONTROL OPERATOR, CMP ####[facility] Mdsaozgiku3440[address] [place], [place] [address]Dr. Bhavani Barragan Protein [Mass/Vol] 6.4 g/dL Normal 6.4-8.2 The [facility] Comment on above: Performed By: #### B WILDLIFE CONTROL OPERATOR, CMP ####[facility] Zhdivfjupx00[address] [place], [place] [address]Dr. Bhavani Barragan Sodium [Moles/Vol] 138 mmol/L Normal 136-145 The [facility] Comment on above: Performed By: #### B WILDLIFE CONTROL OPERATOR, CMP ####[facility] Jclbgsnkrk2184[address] [place], [place] [address]Dr. Bhavani Barragan Urea nitrogen [Mass/Vol] 23.0 mg/dL Critically high 7.0-18.0 [facility] Comment on above: Performed By: #### B WILDLIFE CONTROL OPERATOR, CMP ####[facility] Vkadgtijyh14[address] [place], [place] [address]Dr. Bhavani Barragan Urea nitrogen/Creatinine [Mass ratio] 16.0 mg/mg Normal The [facility] Comment on above: Performed By: #### B WILDLIFE CONTROL OPERATOR, CMP ####[facility] Zevlkqghlx12[address] [place], [place] [address]Dr. Bhavani Barragan PROTIMEon 03-23-2022 INR Coag (PPP) [Relative time] 1.53 {INR} Normal The [facility] Comment on above: Performed By: #### P TT, PT ####[facility] Ipgggxtmdr18[address] [place], [place] [address]Dr. Bhavani Barragan INR GUIDELINES SEE BELOW Normal The [facility] Comment on above: Result Comment: WALKER RED INR: 2.0 - 3.0 CONDITIONS NOT LISTED BELOW 2.5 - 3.5 FOR PROSTHETIC HEART VALVE REPLACEMENT 2.5 - 3.5 RECURRENT THROMBOSIS Performed By: #### P TT, PT ####[facility] Opedkrkfll69[address] [place], [place] [address]Dr. Bhavani Barragan PT Coag (PPP) [Time] 16.1 s Critically high 9.0-11.6 The [facility] Comment on above: Performed By: #### P TT, PT ####[facility] Ccjneqwnms5066[address] [place], [place] [address]Dr. Bhavani Barragan PTTon 03-23-2022 aPTT Coag (d) [Time] 29.9 s Normal 22.3-36.2 The [facility] Comment on above: Performed By: #### P TT, PT ####[facility] Pfvsdavnuu9847[address] [place], [place] [address]Dr. Bhavani Barragan BILIRUBIN CONJUGATED (DIRECT )on 03-22-2022 BILI, CONJUGATED 2.3 mg/dL Critically high 0.0-0.2 The [facility] Comment on above: Performed By: #### D RAI ####[facility] Erarxnjgsw1770[address] [place], [place] [address]Dr. Bhavani Barragan BNPon 03-22-2022 Natriuretic peptide B (Bld) [Mass/Vol] 2436.0 pg/mL Critically high <=1,800.0 The [facility] Comment on above: Result Comment: this BNP was run on specimen from ER drawn on 03/22 at 1606 Performed By: #### B WILDLIFE CONTROL OPERATOR ####[facility] Ccevrxpfhp65[address] [place], [place] [address]Dr. Bhavani Laurel CBC W MANUAL DIFFon 03-22-20 22 ATYPICAL LYMPH # Normal The [facility] Comment on above: Performed By: #### C OMID ####[facility] Kkqahvieyp13[address] [place], [place] [address]Dr. Bhavani Barragan ATYPICAL LYMPH % Normal The [facility] Comment on above: Performed By: #### C BCJERSON ####[facility] Xhglahkybv[address] [place], [place] [address]Dr. Bhavani Barragan BAND # 0.9 103/ul Critically high 0.0-0.3 The [facility] Comment on above: Performed By: #### C BCJERSON ####[facility] Bxyhkbpydm1925[address] [place], [place] [address]Dr. Bhavani Barragan BAND % 3 % Normal 0-5 The [facility] Comment on above: Performed By: #### C ALICIAJERSON ####[facility] Nrupgyimde5943 [place] [id number]. Bhavani Barragan BASOM # 0.00 103/ul Normal 0.00-0.10 The [facility] Comment on above: Performed By: #### C BCJERSON ####[facility] Elwxqvdewa9934 [place] [id number]. Bhavani Barragan BASOM % 0.0 % Critically low 0.2-2.0 The [facility] Comment on above: Performed By: #### C BCJERSON ####[facility] Sutsazngxg0805 [place] [id number]. Bhavani Barragan BLAST # Normal The [facility] Comment on above: Performed By: #### C BCJERSON ####[facility] Uqaffhxkzv2159 [place] [address]Dr. Bhavani Barragan BLAST % Normal The [facility] Comment on above: Performed By: #### C OMID ####[facility] Fpmrkwsurn[address] [place], [place] [address]Dr. Bhavani Barragan CORRECTED WBC Normal 4.0-11.0 The [facility] Comment on above: Performed By: #### C BCJERSON ####[facility] Spzgooonwe[address] [place], [place] [address]Dr. Bhavani Barragan EOS # 0.00 103/ul Normal 0.00-0.70 The [facility] Comment on above: Performed By: #### C BCJERSON ####[facility] Qdxbobbuvb5[address] [place], [place] [address]Dr. Bhavani Barragan EOS% 0.0 % Critically low 0.9-7.0 The [facility] Comment on above: Performed By: #### C BCJERSON ####[facility] Flaycyaxkb6597[address] [place], [place] [address]Dr. Bhavani Barragan HCT 44.6 % Normal 36.0-48.0 The [facility] Comment on above: Performed By: #### C BCJERSON ####[facility] Ajummvpmut[address] [place], [place] [address]Dr. Bhavani Barragan HGB 13.9 g/dl Normal 12.0-16.0 The [facility] Comment on above: Performed By: #### C OMID ####[facility] Lnpncbojov6550 [place] [id number]. Bhavani Barragan LYMPHM # 0.60 103/ul Critically low 1.20-3.80 [facility] Comment on above: Performed By: #### C OMID ####[facility] Nbkysusowh0109 [place] [id number]. Bhavani Barragan LYMPHM% 2.0 % Critically low 20.5-60.0 [facility] Comment on above: Performed By: #### C OMID ####[facility] Npaiwefind6839 [place] [address]Dr. Bhavani Barragan MCH 29.8 pg Normal 26.7-34.0 [facility] Comment on above: Performed By: #### C OMID ####[facility] Rxdwnhtlzb8041 [place] [address]Dr. Bhavani Barragan MCHC 31.2 g/dl Normal 29.9-35.2 [facility] Comment on above: Performed By: #### C OMID ####[facility] Wmjrtkaxsy9[address] [place], [place] [address]Dr. Bhavani Barragan MCV 95.7 fL Normal 81.0-99.0 [facility] Comment on above: Performed By: #### C OMID ####[facility] Meokmnqybb26[address] [place], [place] [address]Dr. Bhavani Barragan METAMYELOCYTE # Normal The [facility] Comment on above: Performed By: #### C OMID ####[facility] Xtctixwdyw2714 [place] [id number]. Bhavani Barragan METAMYELOCYTE % Normal The [facility] Comment on above: Performed By: #### C OMID ####[facility] Wdfemkooub9778 [place] [id number]. Bhavani Barragan MONOM# 0.60 103/ul Normal 0.30-0.80 [facility] Comment on above: Performed By: #### C OMID ####[facility] Opwbecmpom1494 [place], [place] [address]At. Bhavani Barragan MONOM% 2.0 % Normal 1.7-12.0 The [facility] Comment on above: Performed By: #### C OMID ####[facility] Atrpkseubm3188 [place], [place] [address]Cu. Bhavani Barragan MPV 9.7 fL Normal 9.5-13.5 The [facility] Comment on above: Performed By: #### C OMID ####[facility] Zabojfnkqc6744 [place] [id number]. Bhavani Barragan MYELOCYTE # Normal [facility] Comment on above: Performed By: #### C OMID ####[facility] Tgrlutienr6127 [place] [id number]. Bhavani Barragan MYELOCYTE % Normal The [facility] Comment on above: Performed By: #### C OMID ####[facility] Dfkhbojdhd7898 [place] [id number]. Bhavani Barragan NRBC Normal The [facility] Comment on above: Performed By: #### C OMID ####[facility] Ykoyzlvukj9588 [place] [id number]. Bhavani Barragan PLT 436 103/ul Normal 150-450 The [facility] Comment on above: Performed By: #### C OMID ####[facility] Zjqayfoodw2197 [place] [id number]. Bhavani Barragan RBC 4.66 106/ul Normal 4.20-5.40 The [facility] Comment on above: Performed By: #### C OMID ####[facility] Zuzrhxsjpt6838 [place] [id number]. Bhavani Barragan RDW 15.2 % Critically high 11.0-15.0 The [facility] Comment on above: Performed By: #### C OMID ####[facility] Wlnodvfzhm5340 [place] [id number]. Bhavani Barragan SEG # 28.09 103/ul Critically high 1.40-6.50 The [facility] Comment on above: Performed By: #### C OMID ####[facility] Sbxqmdrudf9788 [place], [place] [address]Lx. Bhavani Barragan SEG % 93.0 % Critically high 43.0-75.0 The [facility] Comment on above: Performed By: #### C ALICIAJERSON ####[facility] Qokfjtugcr0699 [place], [place] [address]Ry. Bhavani Barragan WBC 30.2 103/ul Critically high 4.0-11.0 The [facility] Comment on above: Result Comment: test repeated critical value verified Performed By: #### C OMID ####[facility] Gtmdeqqqtx5801 [place], [place] [address]Dw. Bhavani Barragan CULTURE BLOODon 03-22-2022 Microscopic examination of blood, culture Culture Observations: NO GROWTH AT 5 DAYS. Normal The [facility] Comment on above: Performed By: #### B LDCX2 ####[facility] Svrymhcnzm5091 [place] [id number]. Bhavani Barragan Performed By: #### B LDCX1 ####[facility] Ubpuutstku7870 [place], [place] [address]Um. Bhavani Barragan Covid-19 PCR (CVDTB)on SARS-CoV-2 (COVID-19) RNA MATTHEW+probe Ql (Unsp spec) Not detected Normal NOT DETECTED The [facility] Comment on above: Result Comment: When diagnostic [...] for this test is supported by the [place] of Health and Human Service's declaration that [...] be used). Performed By: #### C VDTBH ####[facility] Fpkiypvaxz6084 [place] [address]Dr. Bhavani Barragan ER URINE PROFILEon 2 Bilirubin Ql (U) MODERATE Abnormal NEGATIVE The [facility] Comment on above: Performed By: #### U MICRO, ERUR ####[facility] Snalherana[address] [place], [place] [address]Dr. Bhavani Barragan Clarity (U) CLEAR Normal CLEAR The [facility] Comment on above: Performed By: #### U MICRO, ERUR ####[facility] Rigbgivupt7[address] [place], [place] [address]Dr. Bhavani Barragan Color (U) YELLOW Normal YELLOW [facility] Comment on above: Performed By: #### U MICRO, ERUR ####[facility] Zvsoqllanm25[address] [place], [place] [address]Dr. Bhavani Barragan ERUAHD A micrscopic examination will be performed if indicated. Normal The [facility] Comment on above: Performed By: #### U MICRO, ERUR ####[facility] Cxigjlsjml164[address] [place], [place] [address]Dr. Bhavani Barragan Glucose Ql (U) Negative Normal NEGATIVE The [facility] Comment on above: Performed By: #### U MICRO, ERUR ####[facility] Hzwbyisfvf055[address] [place], [place] [address]Dr. Bhavani Barragan Hemoglobin Ql (U) TRACE-INTACT Abnormal NEGATIVE The [facility] Comment on above: Performed By: #### U MICRO, ERUR ####[facility] Icoiyjqzxg[address] [place], [place] [address]Dr. Bhavani Barragan Ketones Ql (U) Negative Normal NEGATIVE The [facility] Comment on above: Performed By: #### U MICRO, ERUR ####[facility] Wwpzqbmbpr9[address] [place], [place] [address]Dr. Bhavani Barragan LEUKOCYTES LARGE Abnormal NEGATIVE The [facility] Comment on above: Performed By: #### U MICRO, ERUR ####[facility] Vnqskvbzuz[address] [place], [place] [address]Dr. Bhavani Barragan Nitrite Ql (U) Negative Normal NEGATIVE The [facility] Comment on above: Performed By: #### U MICRO, ERUR ####[facility] Qownfaougn0278 [place] [address]Dr. Bhavani Barragan pH (U) 5.5 [pH] Normal 5-9 [facility] Comment on above: Performed By: #### U MICRO, ERUR ####[facility] Whfggpbjig60[address] [place], [place] [address]Dr. Bhavani Barragan Protein (U) [Mass/Vol] 30 mg/dL Abnormal NEGATIVE/ TRACE The [facility] Comment on above: Performed By: #### U MICRO, ERUR ####[facility] Olnbaeswha[address] [place], [place] [address]Dr. Bhavani Laurel SPEC GRAVITY 1.020 Normal 1.005-<=1.02 5 [facility] Comment on above: Performed By: #### U MICRO, ERUR ####[facility] Gkvmhzbrne[address] [place], [place] [address]Dr. Jayceeroxi Laurel UR MICRO IND INDICATED Normal The [facility] Comment on above: Performed By: #### U MICRO, ERUR ####[facility] Tphnaplfqj[address] [place], [place] [address]Dr. Bhavani Laurel Urobilinogen Qn (U) 4 {Ridge'U}/dL Abnormal 0.2 - 1.0 The [facility] Comment on above: Performed By: #### U MICRO, ERUR ####[facility] Yeiuuogiga[address] [place], [place] [address]Dr. Jayceeroxi Laurel LACTATE/LACTIC ACIDon 2021 Lactate [Moles/Vol] 0.9 mmol/L Normal 0.4-2.0 [facility] Comment on above: Performed By: #### L ACT ####[facility] Atijnmiip[address] [place], [place] [address]Dr. Jayceeroxi Laurel Lactate [Moles/Vol] 1.2 mmol/L Normal 0.4-2.[address] [facility] Comment on above: Performed By: #### L ACT ####[facility] Ayxh[address] [place], [place] [address]Dr. Bhavani Barragan POINT OF CARE GLUCOSEon 0 Glucose [Mass/Vol] 188 mg/dL Critically high 74-106 T [facility] Comment on above: Performed By: #### P OCGLUC ####[facility] [address] [place] [address]Dr. Bhavani Barragan PROF 14(COMP METB)on 022 Albumin [Mass/Vol] 2.9 g/dL Critically low 3.4-5.0 [facility] Comment on above: Performed By: #### C MP ####[facility] [address] [place] [address]Dr. Bhavani Barragan Albumin/Globulin [Mass ratio] 0.7 {ratio} Normal [facility] Comment on above: Performed By: #### C MP ####[facility] [address]fgcmonu[address] [place] [address]Dr. Bhavani Barragan ALP [Catalytic activity/Vol] 372 U/L Critically high 46-116 [facility] Comment on above: Performed By: #### C MP ####[facility] Edxbqiqurn[address] [place] [address]Dr. Bhavani Barragan ALT [Catalytic activity/Vol] 402 U/L Critically high 14-59 [facility] Comment on above: Performed By: #### C MP ####[facility] Qvpoguzyvs[address] [place] [address]Dr. Bhavani Barragan Anion gap [Moles/Vol] 10.6 mmol/L Normal [facility] Comment on above: Performed By: #### C MP ####[facility] Dtlpixganx[address] [place] [address]Dr. Bhavani Barragan AST [Catalytic activity/Vol] 346 U/L Critically high 15-37 [facility] Comment on above: Performed By: #### C MP ####[facility] Phsliuyokd[address] [place] [address]Dr. Bhavani Barragan Bilirubin [Mass/Vol] 2.8 mg/dL Critically high 0.2-1.0 [facility] Comment on above: Performed By: #### C MP ####[facility] [address]sfk[address] [place] [id number]. Bhavani Barragan Calcium [Mass/Vol] 7.9 mg/dL Critically low 8.5-10.1 Th e [facility] Comment on above: Performed By: #### C MP ####[facility] [address]izsqgr[address] [place] [id number]. Bhavani Barragan Chloride [Moles/Vol] 106 mmol/L Normal 98-107 [facility] Comment on above: Performed By: #### C MP ####[facility] Bdjxkifdml99[address] [place] [id number]. Bhavani Barragan CO2 [Moles/Vol] 23.5 mmol/L Normal 21.0-32.0 [facility] Comment on above: Performed By: #### C MP ####[facility] Icxlaf[address] [place], [place] [address]Dr. Bhavani Barragan Creatinine [Mass/Vol] 1.57 mg/dL Critically high 0.55-1.02 [facility] Comment on above: Performed By: #### C MP ####[facility] Ymdtvyogel[address] [place] [id number]. Bhavani Barragan EGFR-AF BENINESE 38 mL/min/1.73m2 Critically low >=60 [facility] Comment on above: Performed By: #### C MP ####[facility] Crieabldtz[address] [place], [place] [address]Dr. Bhavani Barragan EGFR-NON AF BENINESE 32 mL/min/1.73m2 Critically low >=60 [facility] Comment on above: Performed By: #### C MP ####[facility] Ydtecujyyb38[address] [place] [id number]. Bhavani Barragan Globulin (S) [Mass/Vol] 4.0 g/dL Normal [facility] Comment on above: Performed By: #### C MP ####[facility] Wssximigpy[address] [place] [id number]. Bhavani Barragan Glucose [Mass/Vol] 151 mg/dL Critically high 74-106 T [facility] Comment on above: Performed By: #### C MP ####[facility] Xexaytvxqs[address] [place] [address]Dr. Bhavani Barragan Potassium [Moles/Vol] 4.1 mmol/L Normal 3.5-5.1 The [facility] Comment on above: Performed By: #### C MP ####[facility] Dlzcrqhkin[address] [place], [place] [address]Dr. Bhavani Barragan Protein [Mass/Vol] 6.9 g/dL Normal 6.4-8.2 [facility] Comment on above: Performed By: #### C MP ####[facility] Tgkkaikapa[address] [place], [place] [address]Dr. Bhavani Barragan Sodium [Moles/Vol] 136 mmol/L Normal 136-145 [facility] Comment on above: Performed By: #### C MP ####[facility] Gppisyqplw[address] [place], [place] [address]Dr. Bhavani Barragan Urea nitrogen [Mass/Vol] 23.0 mg/dL Critically high 7.0-18.0 The [facility] Comment on above: Performed By: #### C MP ####[facility] Hxfchcoigw[address] [place], [place] [address]Dr. Bhavani Laurel Urea nitrogen/Creatinine [Mass ratio] 14.6 mg/mg Normal The [facility] Comment on above: Performed By: #### C MP ####[facility] Xcre[address]avek[address] [place], [place] [address]Dr. Bhavani Barragan URINE MICROSCOPIC ONLYon BACTERIA LARGE Abnormal NONE SEEN The [facility] Comment on above: Performed By: #### U MICRO, ERUR ####[facility] [address] [place], [place] [address]Dr. Jayceeroxi Laurel Bacteria identified Cx Nom (U) INDICATED Normal The [facility] Comment on above: Performed By: #### U MICRO, ERUR ####[facility] K[address]leding[address] [place], [place] [address]Dr. Bhavani Barragan CAST NONE SEEN Normal NONE SEEN The [facility] Comment on above: Performed By: #### U MICRO, ERUR ####[facility] Xsqhwnq[address] [place], [place] [id number]. Bhavani Barragan Crystals LM Nom (Urine sed) NONE SEEN Normal NONE SEEN The [facility] Comment on above: Performed By: #### U MICRO, ERUR ####[facility] Sh[address]umb[address] [place] [address]Dr. Bhavani Barragan Epithelial cells LM Ql (Urine sed) FEW Abnormal NONE SEEN /RARE The [facility] Comment on above: Performed By: #### U MICRO, ERUR ####[facility] Mt[address]zusymxm[address] [place] [id number]. Bhavani Barragan MUCOUS NONE SEEN Normal NONE SEEN The [facility] Comment on above: Performed By: #### U MICRO, ERUR ####[facility] Qhis[address] [place], [place] [address]Dr. Bhavani Barragan RBC 2-5 Abnormal 0-2 The [facility] Comment on above: Performed By: #### U MICRO, ERUR ####[facility] T[address] [place] [address]Dr. Bhavani Barragan WBC (U) [#/Vol] /uL Abnormal NONE SEEN The [facility] Comment on above: Performed By: #### U MICRO, ERUR ####[facility] [address] [place], [place] [address]Dr. Bhavani Barragan US SINGLE QUAD RT UPPERon US SINGLE QUAD RT UPPER Normal The [facility] XR CHEST 1 Von 03-22-2022 XR CHEST 1 V Normal [facility] CBC AND ELECTRONIC DIFFon Basophils (Bld) [#/Vol] 0.23 10*3/uL High 0.00-0.15 [facility] Comment on above: Performed By: #### R ETIC, [id number] #### [facility] (DEFAULT) [address] [address] Basophils/100 WBC (Bld) 0.9 % Normal [facility] Comment on above: Performed By: #### R ETIC, [id number] #### [facility] (DEFAULT) [address] [address] DIFF STATUS Electronic Differential Normal [facility] Comment on above: Performed By: #### R ETIC, [id number] #### [facility] (DEFAULT) [address] [place] [address] Eosinophils (Bld) [#/Vol] 10*3/uL Normal 0.00-0.42 [facility] Comment on above: Performed By: #### R ETIC, [id number] #### [facility] (DEFAULT) [address] [place] [address] Eosinophils/100 WBC (Bld) 0.0 % Normal [facility] Comment on above: Performed By: #### R ETIC, [id number] #### [facility] (DEFAULT) [address] [place] [address] Hematocrit (Bld) [Volume fraction] 52.1 % High 34.9-44.3 [facility] Comment on above: Performed By: #### R ETIC, [id number] #### [facility] (DEFAULT) [address] [place] [address] Hemoglobin (Bld) [Mass/Vol] 16.8 g/dL High 11.4-15.2 [facility] Comment on above: Performed By: #### R KELLYC, [id number] #### [facility] (DEFAULT) [address] [place] [address] Immature Grans % 1.3 % Normal [facility] Comment on above: Performed By: #### R ETIC, [id number] #### [facility] (DEFAULT) [address] [place] [address] Immature Grans Absolute 0.34 K/uL High <=0.09 [facility] Comment on above: Performed By: #### R ETIC, [id number] #### [facility] (DEFAULT) [address] [place] [address] Lymphocytes (Bld) [#/Vol] 1.24 10*3/uL Normal 1.16-3.51 [facility] Comment on above: Performed By: #### R ETIC, [id number] #### [facility] (DEFAULT) [address] [address] Lymphocytes/100 WBC (Bld) 4.9 % Normal [facility] Comment on above: Performed By: #### R ETIC, [id number] #### [facility] (DEFAULT) [address] [address] MCV (RBC) [Entitic vol] 97.4 fL Normal 79.6-97.7 [facility] Comment on above: Performed By: #### R ETIC, [id number] #### [facility] (DEFAULT) [address] [address] Mean Cell Hgb 31.4 pg Normal 25.9-33.9 [facility] Comment on above: Performed By: #### R ETIC, [id number] #### [facility] (DEFAULT) [address] [address] Mean Cell Hgb Conc 32.2 g/dL Normal 31.4-35.9 [facility] Comment on above: Performed By: #### R ETIC, [id number] #### [facility] (DEFAULT) [address] [address] Monocytes (Bld) [#/Vol] 0.47 10*3/uL Normal 0.22-0.87 [facility] Comment on above: Performed By: #### R ETIC, [id number] #### [facility] (DEFAULT) [address] [address] Monocytes/100 WBC (Bld) 1.9 % Normal [facility] Comment on above: Performed By: #### R ETIC, [id number] #### [facility] (DEFAULT) [address] [address] Nucleated RBC 0.1 /100 WBC Normal <=0.2 [facility] Comment on above: Performed By: #### R ETIC, [id number] #### [facility] (DEFAULT) [address] [address] Platelet mean volume (Bld) [Entitic vol] 11.1 fL Normal 8.5-12.2 [facility] Comment on above: Performed By: #### R ETIC, [id number] #### [facility] (DEFAULT) [address] [place] [address] Platelets (Bld) [#/Vol] 174 10*3/uL Normal 150-393 [facility] Comment on above: Performed By: #### R ETIC, [id number] #### [facility] (DEFAULT) [address] [place] [address] RBC (Bld) [#/Vol] 5.35 10*6/uL High 3.91-5.04 [facility] Comment on above: Performed By: #### R ETIC, [id number] #### [facility] (DEFAULT) [address] [place] [address] RBC Distribution 16.3 % High 10.8-14.9 [facility] Comment on above: Performed By: #### R ETIC, [id number] #### [facility] (DEFAULT) [address] [place] [address] Segs + Bands Auto 91.0 % Normal [facility] Comment on above: Performed By: #### R ETIC, [id number] #### [facility] (DEFAULT) [address] [place] [address] Segs + Bands,Absolute Auto 23.08 K/uL High 1.64-7.28 [facility] Comment on above: Performed By: #### R ETIC, [id number] #### [facility] (DEFAULT) [address] [place] [address] WBC (Bld) [#/Vol] 25.37 10*3/uL High 3.99-11.19 [facility] Comment on above: Performed By: #### R ETIC, [id number] #### [facility] (DEFAULT) [address] [place] [address] CMPN WITHOUT GLUCOSEon 11-02 Albumin [Mass/Vol] 4.3 g/dL Normal 3.5-5.0 [facility] Comment on above: Performed By: #### C MPNG #### [facility] (DEFAULT) [address] [place] [address] ALP [Catalytic activity/Vol] 80 U/L Normal 32-126 [facility] Comment on above: Performed By: #### C MPNG #### [facility] (DEFAULT) [address] [place] [address] ALT [Catalytic activity/Vol] 8 U/L Low 9-48 [facility] Comment on above: Performed By: #### C MPNG #### [facility] (DEFAULT) [address] [place] [address] Anion gap [Moles/Vol] 13 mmol/L Normal 7-17 [facility] Comment on above: Performed By: #### C MPNG #### [facility] (DEFAULT) [address] [place] [address] AST [Catalytic activity/Vol] 14 U/L Normal 14-40 [facility] Comment on above: Performed By: #### C MPNG #### [facility] (DEFAULT) [address] [place] [address] Bilirubin [Mass/Vol] 0.5 mg/dL Normal <1.5 [facility] Comment on above: Performed By: #### C MPNG #### [facility] (DEFAULT) [address] [place] [address] Calcium [Mass/Vol] 9.1 mg/dL Normal 8.6-10.5 [facility] Comment on above: Performed By: #### C MPNG #### [facility] (DEFAULT) [address] [place] [address]39 Chloride [Moles/Vol] 108 mmol/L Normal 98-108 [facility] Comment on above: Performed By: #### C MPNG #### [facility] (DEFAULT) [address] [place] [address] CO2 [Moles/Vol] 21 mmol/L Low 22-30 [facility] Comment on above: Performed By: #### C MPNG #### [facility] (DEFAULT) [address] [place] [address]887 Creatinine [Mass/Vol] 1.36 mg/dL High 0.50-1.20 [facility] Comment on above: Performed By: #### C MPNG #### [facility] (DEFAULT) [address] [place] [address] 32884 EST GFR, 45 mL/min/1.73sqM Low >=60 [facility] Comment on above: Performed By: #### C MPNG #### [facility] (DEFAULT) [address] [place] [address] 40675 EST GFR,Non 37 mL/min/1.73sqM Low >=60 [facility] Comment on above: Performed By: #### C MPNG #### [facility] (DEFAULT) [address] [place] [address] Potassium [Moles/Vol] 5.0 mmol/L Normal 3.5-5.0 [facility] Comment on above: Performed By: #### C MPNG #### [facility] (DEFAULT) [address] [place] [address] Protein [Mass/Vol] 7.6 g/dL Normal 6.4-8.3 [facility] Comment on above: Performed By: #### C MPNG #### [facility] (DEFAULT) [address] [place] [address]247 Sodium [Moles/Vol] 137 mmol/L Normal 133-143 [facility] Comment on above: Performed By: #### C MPNG #### [facility] (DEFAULT) [address] [place] [address]226 Urea nitrogen [Mass/Vol] 42 mg/dL High 7-22 [facility] Comment on above: Performed By: #### C MPNG #### [facility] (DEFAULT) [address] [place] [address] Urea nitrogen/Creatinine [Mass ratio] 31 mg/mg Normal [facility] Comment on above: Performed By: #### C MPNG #### [facility] (DEFAULT) [address] [place] [address] FERRITINon 11-02-2021 Ferritin [Mass/Vol] 19.2 ng/mL Normal 10.0-291.0 [facility] Comment on above: Performed By: #### F ERIB #### [facility] (DEFAULT) [address] [place] [address] RETICULOCYTESon 11-02-2021 Retic Absolute 0.1177 M/uL High 0.0324-0.[address] [facility] Comment on above: Performed By: #### R ETIC, [id number] #### [facility] (DEFAULT) [address] [address] Retic Count 2.20 % Normal 0.74-2.54 [facility] Comment on above: Performed By: #### R ETIC, [id number] #### [facility] (DEFAULT) [address] [place] [address] CBC AND ELECTRONIC DIFFon Basophils (Bld) [#/Vol] 0.20 10*3/uL High 0.00-0.15 [facility] Comment on above: Performed By: #### L [id number] #### [facility] (DEFAULT) [address] [address] Basophils/100 WBC (Bld) 0.9 % Normal [facility] Comment on above: Performed By: #### L [id number] #### [facility] (DEFAULT) [address] [place] [address] DIFF STATUS Electronic Differential Normal [facility] Comment on above: Performed By: #### L [id number] #### [facility] (DEFAULT) [address] [place] [address]97 Eosinophils (Bld) [#/Vol] 10*3/uL Normal 0.00-0.42 [facility] Comment on above: Performed By: #### L [id number] #### [facility] (DEFAULT) [address] [place] [address]186 Eosinophils/100 WBC (Bld) 0.1 % Normal [facility] Comment on above: Performed By: #### L [id number] #### [facility] (DEFAULT) [address] [place] [address] Hematocrit (Bld) [Volume fraction] 47.4 % High 34.9-44.3 [facility] Comment on above: Performed By: #### L [id number] #### [facility] (DEFAULT) [address] [place] [address] Hemoglobin (Bld) [Mass/Vol] 15.4 g/dL High 11.4-15.2 [facility] Comment on above: Performed By: #### L [id number] #### [facility] (DEFAULT) [address] [place] [address] Immature Grans % 3.0 % Normal [facility] Comment on above: Performed By: #### L [id number] #### [facility] (DEFAULT) [address] [place] [address]35[address] Immature Grans Absolute 0.67 K/uL High <=0.09 [facility] Comment on above: Performed By: #### L [id number] #### [facility] (DEFAULT) [address] [place] [address] Lymphocytes (Bld) [#/Vol] 1.12 10*3/uL Low 1.16-3.51 [facility] Comment on above: Performed By: #### L [id number] #### [facility] (DEFAULT) [address] [place] [address] Lymphocytes/100 WBC (Bld) 5.0 % Normal [facility] Comment on above: Performed By: #### L [id number] #### [facility] (DEFAULT) [address] [address] MCV (RBC) [Entitic vol] 101.5 fL High 79.6-97.7 [facility] Comment on above: Performed By: #### L [id number] #### [facility] (DEFAULT) [address] [address] Mean Cell Hgb 33.0 pg Normal 25.9-33.9 [facility] Comment on above: Performed By: #### L [id number] #### [facility] (DEFAULT) [address] [address] Mean Cell Hgb Conc 32.5 g/dL Normal 31.4-35.9 [facility] Comment on above: Performed By: #### L [id number] #### [facility] (DEFAULT) [address] [address] Monocytes (Bld) [#/Vol] 0.51 10*3/uL Normal 0.22-0.87 [facility] Comment on above: Performed By: #### L [id number] #### [facility] (DEFAULT) [address] [address] Monocytes/100 WBC (Bld) 2.3 % Normal [facility] Comment on above: Performed By: #### L [id number] #### [facility] (DEFAULT) [address] [address] Nucleated RBC 0.1 /100 WBC Normal <=0.2 [facility] Comment on above: Performed By: #### L [id number] #### [facility] (DEFAULT) [address] [address] Platelet mean volume (Bld) [Entitic vol] 10.4 fL Normal 8.5-12.2 [facility] Comment on above: Performed By: #### L [id number] #### [facility] (DEFAULT) [address] [place] [address] 18748 Platelets (Bld) [#/Vol] 289 10*3/uL Normal 150-393 [facility] Comment on above: Performed By: #### L [id number] #### [facility] (DEFAULT) [address] [place] [address]179 RBC (Bld) [#/Vol] 4.67 10*6/uL Normal 3.91-5.04 [facility] Comment on above: Performed By: #### L [id number] #### [facility] (DEFAULT) [address] [place] [address] 45558 RBC Distribution 14.8 % Normal 10.8-14.9 [facility] Comment on above: Performed By: #### L [id number] #### [facility] (DEFAULT) [address] [place] [address]63 Segs + Bands Auto 88.7 % Normal [facility] Comment on above: Performed By: #### L [id number] #### [facility] (DEFAULT) [address] [place] [address]504 Segs + Bands,Absolute Auto 20.03 K/uL High 1.64-7.28 [facility] Comment on above: Performed By: #### L [id number] #### [facility] (DEFAULT) [address] [place] [address] 16345 WBC (Bld) [#/Vol] 22.56 10*3/uL High 3.99-11.19 [facility] [facility] Comment on above: Performed By: #### L [id number] #### [facility] (DEFAULT) [address] [address] IMMUNOPHENOTYPING,PERIPH BLO ODon 08-17-2021 BKR DX CODE Use Ordering Normal [facility] Comment on above: Order Comment: IMMUN OPHENOTYPING DIAGNOSIS PATIENT NAME: MARÍA ELENA TAFOYA : 1940 ACCN#: [id number] REVIEWED BY: LAURA Moreno [id number] SAMPLE TYPE: Peripheral Blood LABORATORY INTERPRETATION: There [...] % are B cells (CD19+) with a Mcalmont:Lambda ratio of 2:2 , 73.5 % are T cells (CD3+) with a CD4:CD8 ratio of 2.2 and an absolute CD4+/CD3+ count of 549 ABS/mm3 and 23.7 % are NK cells (positive for CD56 and/or CD16 and negative for CD3). ==== MARKER DESCRIPTION LYM REG% ABS/mm3 NORMAL % NML ABS ==== ABSOLUTE LYMPHOCYTE COUNT [phone] ==== CD19+ B CELL 4.4 49 2.0-21.0 [...] determined The Flow Cytometry Laboratory at [facility]. It has not been cleared or approved by the FDA. This laboratory is certified under the Clinical Laboratory Improvement Amendments (CLIA) as qualified to perform high complexity clinical laboratory testing. This test is used for clinical purposes. It should not be regarded as investigational or for research. The [facility] Flow Cytometry Laboratory lower limit of CLL MRD detection is 0.1% of the gated lymphocytes. Performed By: #### P BIPP #### [facility] (DEFAULT) [address] [place] [address] Flow Interpretation See Comment Normal [facility] Comment on above: Order Comment: IMMUN OPHENOTYPING DIAGNOSIS PATIENT NAME: MARÍA ELENA TAFOYA : 1940 ACCN#: [id number] REVIEWED BY: Efrem Charlton, [facility] [id number] SAMPLE TYPE: Peripheral Blood LABORATORY INTERPRETATION: There [...] % are B cells (CD19+) with a Mcalmont:Lambda ratio of 2:2 , 73.5 % are T cells (CD3+) with a CD4:CD8 ratio of 2.2 and an absolute CD4+/CD3+ count of 549 ABS/mm3 and 23.7 % are NK cells (positive for CD56 and/or CD16 and negative for CD3). ==== MARKER DESCRIPTION LYM REG% ABS/mm3 NORMAL % NML ABS ==== ABSOLUTE LYMPHOCYTE COUNT [phone] ==== CD19+ B CELL 4.4 49 2.0-21.0 [...] determined The Flow Cytometry Laboratory at [facility]. It has not been cleared or approved by the FDA. This laboratory is certified under the Clinical Laboratory Improvement Amendments (CLIA) as qualified to perform high complexity clinical laboratory testing. This test is used for clinical purposes. It should not be regarded as investigational or for research. The [facility] Flow Cytometry Laboratory lower limit of CLL MRD detection is 0.1% of the gated lymphocytes. Performed By: #### P BIPP #### [facility] (DEFAULT) [address] [place] [address] Flow Interpreted by: Efrem Charlton MD [facility] Comment on above: Order Comment: IMMUN OPHENOTYPING DIAGNOSIS PATIENT NAME: MARÍA ELENA TAFOYA : 1940 ACCN#: [id number] REVIEWED BY: LAURA Moreno [id number] SAMPLE TYPE: Peripheral Blood LABORATORY INTERPRETATION: There [...] % are B cells (CD19+) with a Mcalmont:Lambda ratio of 2:2 , 73.5 % are T cells (CD3+) with a CD4:CD8 ratio of 2.2 and an absolute CD4+/CD3+ count of 549 ABS/mm3 and 23.7 % are NK cells (positive for CD56 and/or CD16 and negative for CD3). ==== MARKER DESCRIPTION LYM REG% ABS/mm3 NORMAL % NML ABS ==== ABSOLUTE LYMPHOCYTE COUNT [phone] ==== CD19+ B CELL 4.4 49 2.0-21.0 [...] determined The Flow Cytometry Laboratory at [facility]. It has not been cleared or approved by the FDA. This laboratory is certified under the Clinical Laboratory Improvement Amendments (CLIA) as qualified to perform high complexity clinical laboratory testing. This test is used for clinical purposes. It should not be regarded as investigational or for research. The [facility] Flow Cytometry Laboratory lower limit of CLL MRD detection is 0.1% of the gated lymphocytes. Performed By: #### P BIPP #### [facility] ([facility]) [address] [place] [id number] MUTATION DETECTION , BLOODon 08-17-2021 Receiving Status Accessioned in Lab Normal [facility] Comment on above: Performed By: #### J AK2B #### [facility] (DEFAULT) [address] [address] Performed By: #### B CRSCR #### [facility] (DEFAULT) [address] [address] CBC with Differentialon 01-17 Basophils (Bld) [#/Vol] 0.20 thou/mcL Normal 0.00-0.20 [facility] Comment on above: Performed By: #### 5 7021-8 #### [address] [address] Basophils/100 WBC (Bld) 0.9 % Normal 0.0-2.0 [facility] Comment on above: Performed By: #### 5 7021-8 #### [address] [address] Eosinophils (Bld) [#/Vol] 0.00 thou/mcL Normal 0.00-0.70 [facility] Comment on above: Performed By: #### 5 7021-8 #### [address] [address] Eosinophils/100 WBC (Bld) 0.1 % Normal 0.0-7.0 [facility] Comment on above: Performed By: #### 5 7021-8 #### [address] [address] Erythrocyte distribution width (RBC) [Entitic vol] 17.1 % High 11.0-14.8 [facility] Comment on above: Performed By: #### 5 7021-8 #### [address] [address] Hematocrit (Bld) [Volume fraction] 36.3 % Normal 35.0-45.0 [facility] Comment on above: Performed By: #### 5 7021-8 #### [address] [address] Hemoglobin (Bld) [Mass/Vol] 11.8 g/dL Low 12.0-16.0 [facility] Comment on above: Performed By: #### 5 7021-8 #### [facility] [address] [place] [address] Lymphocytes (Bld) [#/Vol] 1.40 thou/mcL Normal 1.00-4.80 [facility] Comment on above: Performed By: #### 5 7021-8 #### [facility] [address] [place] [address] Lymphocytes/100 WBC (Bld) 7.1 % Low 22.0-44.0 [facility] Comment on above: Performed By: #### 5 7021-8 #### [facility] [address] [place] [address] MCH (RBC) [Entitic mass] 33.0 Picograms Normal 27.0-34.0 [facility] Comment on above: Performed By: #### 5 7021-8 #### [facility] [address] [place] [address] MCHC (RBC) [Mass/Vol] 32.5 g/dL Normal 32.0-36.0 [facility] Comment on above: Performed By: #### 5 7021-8 #### [facility] [address] [place] [address] MCV (RBC) [Entitic vol] 101.7 fL High 80.0-97.0 [facility] Comment on above: Performed By: #### 5 7021-8 #### [facility] [address] [place] [address] Monocytes (Bld) [#/Vol] 0.50 thou/mcL Normal 0.00-0.90 [facility] Comment on above: Performed By: #### 5 7021-8 #### [facility] [address] [place] [address] Monocytes/100 WBC (Bld) 2.7 % Normal 0.0-12.0 [facility] Comment on above: Performed By: #### 5 7021-8 #### [facility] [address] [place] [address] Neutrophils (Bld) [#/Vol] 18.10 thou/mcL High 1.80-7.70 [facility] Comment on above: Performed By: #### 5 7021-8 #### [facility] [address] [place] [address] Neutrophils/100 WBC (Bld) 89.2 % High 40.0-70.0 [facility] Comment on above: Performed By: #### 5 7021-8 #### [facility] [address] [place] [address] Platelet mean volume (Bld) [Entitic vol] 8.2 fL Normal 6.2-12.1 [facility] Comment on above: Performed By: #### 5 7021-8 #### [facility] [address] [place] [address] Platelets (Bld) [#/Vol] 355 thou/mcL Normal 142-424 [facility] Comment on above: Performed By: #### 5 7021-8 #### [facility] [address] [place] [address] RBC (Bld) [#/Vol] 3.57 million/mcL Low 3.80-5.10 [facility] Comment on above: Performed By: #### 5 7021-8 #### [facility] [address] [place] [address] WBC (Bld) [#/Vol] 20.3 thou/mcL High 4.6-10.2 [facility] Comment on above: Performed By: #### 5 7021-8 #### [facility] [address] [place] [address] Ammoniaon 09-27-2020 Ammonia (P) [Mass/Vol] 21 umol/L Normal 9-30 [facility] Comment on above: Order Comment: Items in this order include: Ammonia Testing Performed By: [facility] [address] [place] [address] Dr. Donnie Jean, [facility] [employer] Items in this order include: Ammonia Testing Performed By: [facility] [address] [place] [address]. [place] [address] Dr. Donnie Jean, [employer] Performed By: #### C 709 #### [facility] [address] [place] [address] [place] [address] B12/Folateon 09-27-2020 Cobalamin (Vitamin B12) [Mass/Vol] 683 pg/mL Normal 239-931 [facility] Comment on above: Order Comment: Items in this order include: Culture, Urine Testing Performed By: [facility] [address] [place] [address]. [place] [address] Dr. Donnie Jean, [employer] [employer] Result Comment: Plea se note: Over the counter high dose supplements of Biotin that are 20 to 300 times greater than the adequate daily intake of 30 mcg/day for adults may cause a bias of 10% or more to be observed in the measured Vitamin B-12 concentrations. Performed By: #### C 734 #### [facility] [address] [place] [address] [place] [address] Folate 9.26 ng/mL Normal 2.80-20.00 [facility] Comment on above: Order Comment: Items in this order include: Culture, Urine Testing Performed By: [facility] [address] [place] [address]. [place] [address] Dr. Donnie Jean, [employer] [employer] Result Comment: Plea se note: Over the counter high dose supplements of Biotin that are 20 to 300 times greater than the adequate daily intake of 30 mcg/day for adults may cause a bias of 10% or more to be observed in the measured Folate concentrations. Performed By: #### C 734 #### [facility] [address] [place] [address] [place] [address] CBC with differentialon 09-18 Erythrocyte distribution width (RBC) [Ratio] 15.4 % Normal 11.5-15.5 [facility] Comment on above: Order Comment: Items in this order include: Culture, Urine Testing Performed By: [facility] [address] [place] [address]. [place] [address] Dr. Donnie Jean, [employer] Performed By: #### C 734 #### [facility] [address] [facility] [address] [place] [address] Hematocrit (Bld) [Volume fraction] 39.8 % Normal 37.0-47.0 [facility] Comment on above: Order Comment: Items in this order include: Culture, Urine Testing Performed By: [facility] [address] [place] [address]. [place] [address] Dr. Donnie Jean, [employer] Performed By: #### C 734 #### [facility] [address] [place] [address] [address] [place] [address] Hemoglobin (Bld) [Mass/Vol] 12.3 g/dL Normal 11.5-15.5 [facility] Comment on above: Order Comment: Items in this order include: Culture, Urine Testing Performed By: [facility] [address] [place] [address]. [place] [address] Dr. Donnie Jean, [employer] Performed By: #### C 734 #### [facility] [address] [place] [address] [address] [place] [address] MCH (RBC) [Entitic mass] 34.2 pg High 27.0-31.0 [facility] Comment on above: Order Comment: Items in this order include: Culture, Urine Testing Performed By: [facility] [address] [place] [address]. [place] [address] Dr. Donnie Jean, [employer] Performed By: #### C 734 #### [facility] [address] [place] [address] [address] [place] [address] MCHC (RBC) [Mass/Vol] 30.9 g/dL Low 32.0-36.0 [facility] Comment on above: Order Comment: Items in this order include: Culture, Urine Testing Performed By: [facility] [address] [place] [address]. [place] [address] Dr. Donnie Jean, [employer] Performed By: #### C 734 #### [facility] [address] [place] [address] MCV (RBC) [Entitic vol] 110.6 fL High 78.0-100.0 [facility] Comment on above: Order Comment: Items in this order include: Culture, Urine Testing Performed By: [facility] [address] [facility] [place] [address] Dr. Donnie Jean, [employer] Performed By: #### C 734 #### [facility] [address] [place] [address] Platelet mean volume (Bld) [Entitic vol] 10.2 fL Normal 8.9-12.6 [facility] Comment on above: Order Comment: Items in this order include: Culture, Urine Testing Performed By: [facility] [facility] [place] [address] Dr. Donnie Jean, [employer] Performed By: #### C 734 #### [facility] [address] [place] [address] [address] [place] [address] Platelets (Bld) [#/Vol] 423 K CUMM High 130-400 [facility] Comment on above: Order Comment: Items in this order include: Culture, Urine Testing Performed By: [facility] [address] [place] [address]. [place] [address] Dr. Donnie Jean, [employer] Performed By: #### C 734 #### [facility] [address] [place] [address] RBC (Bld) [#/Vol] 3.60 M CUMM Low 3.80-5.10 [facility] Comment on above: Order Comment: Items in this order include: Culture, Urine Testing Performed By: [facility] [address] [place] [address]. [place] [address] Dr. Donnie Jean, [employer] Performed By: #### C 734 #### [facility] [address] [place] [address] WBC (Bld) [#/Vol] 28.2 K CUMM Critically high 3.8-10.6 [facility] Comment on above: Order Comment: Items in this order include: Culture, Urine Testing Performed By: [facility] [address] [place] [address]. [place] [address] Dr. Donnie Jean, [employer] Performed By: #### C 734 #### [facility] [address] [place] [address] [address] [place] [address] [facility] 09-27-2020 Albumin [Mass/Vol] 4.4 g/dL Normal 3.5-5.0 [facility] Comment on above: Order Comment: Items in this order include: Comprehensive Metabolic Panel, CBC with differential, TSH w/ reflex to FT4, B12/Folate, , , , Manual Differential if Indicated, Slide Scan, MicroscopeTesting Performed By: [facility] [address] [place] [address]. [place] [address] Dr. Donnie Jean, [employer] Performed By: #### C 709 #### [facility] [address] [place] [address] Rd [address] [place] [address] Alk Phos 68 U/L Normal 23-159 [facility] Comment on above: Order Comment: Items in this order include: Comprehensive Metabolic Panel, CBC with differential, TSH w/ reflex to FT4, B12/Folate, , , , Manual Differential if Indicated, Slide Scan, MicroscopeTesting Performed By: [facility] [address] [place] [address]. [place] [address] Dr. Donnie Jean, [employer] Performed By: #### C 709 #### [facility] [address] [place] [address] [address] [place] [address] ALT [Catalytic activity/Vol] 15 U/L Normal 0-38 [facility] Comment on above: Order Comment: Items in this order include: Comprehensive Metabolic Panel, CBC with differential, TSH w/ reflex to FT4, B12/Folate, , , , Manual Differential if Indicated, Slide Scan, MicroscopeTesting Performed By: [facility] [address] [place] [address]. [place] [address] Dr. Donnie Jean, [employer] Performed By: #### C 709 #### [facility] [address] [place] [address] [place] [address] AST [Catalytic activity/Vol] 21 U/L Normal 11-43 [facility] Comment on above: Order Comment: Items in this order include: Comprehensive Metabolic Panel, CBC with differential, TSH w/ reflex to FT4, B12/Folate, , , , Manual Differential if Indicated, Slide Scan, MicroscopeTesting Performed By: [facility] [address] [place] [address]. [place] [address] Dr. Donnie Jean, [employer] Performed By: #### C 709 #### [facility], [facility]. [address] [place] [address] [place] [address] Bilirubin [Mass/Vol] 0.5 mg/dL Normal 0.2-1.3 [facility] Comment on above: Order Comment: Items in this order include: Comprehensive Metabolic Panel, CBC with differential, TSH w/ reflex to FT4, B12/Folate, , , , Manual Differential if Indicated, Slide Scan, MicroscopeTesting Performed By: [facility] [address] [place] [address]. [place] [address] Dr. Donnie Jean, [employer] Performed By: #### C 709 #### [facility], [facility]. [address] [place] [address] [place] [address] Calcium [Mass/Vol] 9.7 mg/dL Normal 8.5-10.5 [facility] Comment on above: Order Comment: Items in this order include: Comprehensive Metabolic Panel, CBC with differential, TSH w/ reflex to FT4, B12/Folate, , , , Manual Differential if Indicated, Slide Scan, MicroscopeTesting Performed By: [facility] [address] [place] [address]. [place] [address] Dr. Donnie Jean, [employer] Performed By: #### C 709 #### [facility], [facility]. [address] [place] [address] [address] [place] [address] Chloride [Moles/Vol] 111 mmol/L High 98-107 [facility] Comment on above: Order Comment: Items in this order include: Comprehensive Metabolic Panel, CBC with differential, TSH w/ reflex to FT4, B12/Folate, , , , Manual Differential if Indicated, Slide Scan, MicroscopeTesting Performed By: [facility] [address] [place] [address]. [place] [address] Dr. Donnie Jean, [employer] Performed By: #### C 709 #### [facility] [address] [place] [address] [address] [place] [address] CO2 [Moles/Vol] 16.0 mmol/L Low 21.0-32.0 [facility] Comment on above: Order Comment: Items in this order include: Comprehensive Metabolic Panel, CBC with differential, TSH w/ reflex to FT4, B12/Folate, , , , Manual Differential if Indicated, Slide Scan, MicroscopeTesting Performed By: [facility] [address] [place] [address] [address] [address] Donnie Jean, [employer] Performed By: #### Jany 709 #### [facility] [address] [place] [address] [address] [place] [address] Creatinine [Mass/Vol] 1.6 mg/dL High 0.1-1.2 [facility] Comment on above: Order Comment: Items in this order include: Comprehensive Metabolic Panel, CBC with differential, TSH w/ reflex to FT4, B12/Folate, , , , Manual Differential if Indicated, Slide Scan, MicroscopeTesting Performed By: [facility] [address] [place] [address] [address] [address] Donnie Jean, [employer] Performed By: #### C 709 #### [facility] [address] [place] [address] [address] [place] [address] GFR/1.73 sq M.predicted MDRD (S/P/Bld) [Vol rate/Area] 31 mL/min per 1.73 Low >60 [facility] Comment on above: Order Comment: Items in this order include: Comprehensive Metabolic Panel, CBC with differential, TSH w/ reflex to FT4, B12/Folate, , , , Manual Differential if Indicated, Slide Scan, MicroscopeTesting Performed By: [facility] [address] [place] [address]. [place] [address] Dr. Donnie Jean, [employer]aster [employer] Result Comment: The GFR estimate is not adjusted for race. If the patient's race is -Moroc[place], the GFR estimate must be multiplied by a factor of 1.21. Performed By: #### C 709 #### [facility] [address] [place] [address] [address] [place] [address] Glucose [Mass/Vol] 112 mg/dL High 74-100 [facility] Comment on above: Order Comment: Items in this order include: Comprehensive Metabolic Panel, CBC with differential, TSH w/ reflex to FT4, B12/Folate, , , , Manual Differential if Indicated, Slide Scan, MicroscopeTesting Performed By: [facility] [address] [place] [address]. [place] [address] Dr. Donnie Jean, [employer] Performed By: #### Jany 709 #### [facility], [facility]. [address] [place] [address] [address] [place] [address] Potassium [Moles/Vol] 5.4 mmol/L High 3.5-5.3 [facility] Comment on above: Order Comment: Items in this order include: Comprehensive Metabolic Panel, CBC with differential, TSH w/ reflex to FT4, B12/Folate, , , , Manual Differential if Indicated, Slide Scan, MicroscopeTesting Performed By: [facility] [address] [place] [address]. [place] [address] Dr. Donnie Jean, [employer] Performed By: #### C 709 #### [facility], [facility]. [address] [place] [address] [address] [place] [address] Protein [Mass/Vol] 7.4 g/dL Normal 6.3-8.4 [facility] Comment on above: Order Comment: Items in this order include: Comprehensive Metabolic Panel, CBC with differential, TSH w/ reflex to FT4, B12/Folate, , , , Manual Differential if Indicated, Slide Scan, MicroscopeTesting Performed By: [facility] [address] [place] [address]. [place] [address] Dr. Donnie Jean, [employer] Performed By: #### C 709 #### [facility] [address] [place] [address] [address] [place] [address] Sodium [Moles/Vol] 140 mmol/L Normal 135-145 [facility] Comment on above: Order Comment: Items in this order include: Comprehensive Metabolic Panel, CBC with differential, TSH w/ reflex to FT4, B12/Folate, , , , Manual Differential if Indicated, Slide Scan, MicroscopeTesting Performed By: [facility] [address] [place] [address]. [place] [address] Dr. Donnie Jean, [employer] Performed By: #### C 709 #### [facility] [address] [place] [address] [place] [address] Urea nitrogen [Mass/Vol] 40 mg/dL High 6-22 [facility] Comment on above: Order Comment: Items in this order include: Comprehensive Metabolic Panel, CBC with differential, TSH w/ reflex to FT4, B12/Folate, , , , Manual Differential if Indicated, Slide Scan, MicroscopeTesting Performed By: [facility] [address] [place] [address]. [place] [address] Dr. Donnie Jean, Armhole Baster Hand Performed By: #### C 709 #### [facility] Inc[facility] [address] [place] [address] [place] [address] Culture, Urineon 09-27-2020 RPT Microbiology results Normal [facility] Comment on above: Order Comment: Items in this order include: Culture, Urine Testing Performed By: [facility] [address] [place] [address]. [place] [address] Dr. Donnie Jean, Armhole Baster Hand Result Comment: Kaylee l Result: No growth at 24 hours. Performed By: #### C 874 #### [facility] [address] [place] [address] [address] [place] [address] Manual Differential if Indic atedon 09-27-2020 Anisocytosis Ql (Bld) SLIGHT Normal [facility] Comment on above: Order Comment: Items in this order include: Culture, Urine Testing Performed By: [facility] [address] [place] [address] Dr. Donnie Jean, Armhole Baster Hand Performed By: #### C 734 #### [facility] [address] [place] [address] Luna Cells SLIGHT Normal [facility] Comment on above: Order Comment: Items in this order include: Culture, Urine Testing Performed By: [facility] [address] [place] [address] Dr. Donnie Jean, Armhole Baster Hand Performed By: #### C 734 #### [facility] [address] [place] [address] Lymphocytes 2 % Low 20-51 [facility] Comment on above: Order Comment: Items in this order include: Culture, Urine Testing Performed By: [facility] [address] [place] [address] Dr. Donnie Jean, Armhole Baster Hand Performed By: #### C 734 #### [facility] [address] [place] [address] Macrocytes Ql (Bld) SLIGHT Normal [facility] Comment on above: Order Comment: Items in this order include: Culture, Urine Testing Performed By: [facility] [address] [place] [address] Dr. Donnie Jean, Armhole Baster Hand Performed By: #### C 734 #### [facility] [address] [place] [address] Metamyelocytes 1 % Normal <2 [facility] Comment on above: Order Comment: Items in this order include: Culture, Urine Testing Performed By: [facility] [address] [place] [address] Dr. Donnie Jean, Armhole Baster Hand Performed By: #### C 734 #### [facility] [address] [place] [address] Monocytes 2 % Normal 2-9 [facility] Comment on above: Order Comment: Items in this order include: Culture, Urine Testing Performed By: [facility] [address] [place] [address] Dr. Donnie Jean, Armhole Baster Hand Performed By: #### C 734 #### [facility] [address] [place] [address] Neutrophils 95 % High 42-75 [facility] Comment on above: Order Comment: Items in this order include: Culture, Urine Testing Performed By: [facility] [address] [place] [address] Dr. Donnie Jean, Armhole Baster Hand Performed By: #### C 734 #### [facility] [address] [place] [address] Ovalocytes SLIGHT Normal [facility] Comment on above: Order Comment: Items in this order include: Culture, Urine Testing Performed By: [facility] [address] [place] [address] Dr. Donnie Jean, Armhole Baster Hand Performed By: #### C 734 #### [facility] [address] [place] [address] Poikilocytosis MODERATE Normal [facility] Comment on above: Order Comment: Items in this order include: Culture, Urine Testing Performed By: [facility] [address] [place] [address] Dr. Donnie Jean, Armhole Baster Hand Performed By: #### C 734 #### [facility] [address] [place] [address] Polychromasia SLIGHT Normal [facility] Comment on above: Order Comment: Items in this order include: Culture, Urine Testing Performed By: [facility] [address] [place] [address] Dr. Donnie Jean, Armhole Baster Hand Performed By: #### C 734 #### [facility] [address] [place] [address] Target Cells SLIGHT Normal [facility] Comment on above: Order Comment: Items in this order include: Culture, Urine Testing Performed By: [facility] [address] [place] [address]. [place] [id number] Dr. Donnie Jean, Armhole Baster Hand Performed By: #### C 734 #### [facility] [address] [place] [address] [place] [address] Slide Scan, Microscopeon Platelets (Bld) [#/Vol] RESULTS MAY BE INACCURATE DUE TO PLATELET CLUMPING; SUGGEST REDRAW PLT COUNT IN BLUE-TOP (CITRATED TUBE). ALL OTHER CBC PARAMETERS ARE UNAFFECTED BY THIS IN VITRO PHENOMENON. Normal [facility] Comment on above: Order Comment: Items in this order include: Culture, Urine Testing Performed By: [facility] [address] [place] [address]. [place] [id number] Dr. Donnie Jean, Armhole Baster Hand Performed By: #### C 734 #### [facility] [address] [place] [address] [place] [address] TSH w/ reflex to FT4on 09-27 TSH Qn 4.30 MIU/mL Normal 0.50-6.00 [facility] Comment on above: Order Comment: Items in this order include: Culture, Urine Testing Performed By: [facility] [address] [place] [address]. [place] [id number] Dr. Donnie Jean, Armhole Baster Hand Performed By: #### C 734 #### [facility] [address] [place] [address] [address] [place] [address] CBC with differentialon Erythrocyte distribution width (RBC) [Ratio] 15.4 % Normal 11.5-15.5 [facility] Comment on above: Order Comment: Items in this order include: Comprehensive Metabolic Panel, Lipid Panel, Uric Acid , Vit D 25 [place] (Total), CBC with differential, HgbA1C, , , , Slide Scan if Indicated, Manual Differential if IndicatedTesting Performed By: [facility] [address] [place] [address]. [place] [id number] Dr. Donnie Jean, Armhole Baster Hand Performed By: #### C 709 #### [facility], [facility]. [address] [place] [address] [address] [place] [address] Hematocrit (Bld) [Volume fraction] 37.9 % Normal 37.0-47.0 [facility] Comment on above: Order Comment: Items in this order include: Comprehensive Metabolic Panel, Lipid Panel, Uric Acid , Vit D 25 [place] (Total), CBC with differential, HgbA1C, , , , Slide Scan if Indicated, Manual Differential if IndicatedTesting Performed By: [facility] [address] [place] [address]. [place] [address] Dr. Donnie Jean, Armhole Baster Hand Performed By: #### C 709 #### [facility], [facility]. [address] [place] [address] [place] [address] Hemoglobin (Bld) [Mass/Vol] 12.1 g/dL Normal 11.5-15.5 [facility] Comment on above: Order Comment: Items in this order include: Comprehensive Metabolic Panel, Lipid Panel, Uric Acid , Vit D 25 [place] (Total), CBC with differential, HgbA1C, , , , Slide Scan if Indicated, Manual Differential if IndicatedTesting Performed By: [facility] [address] [place] [address]. [place] [address] Dr. Donnie Jean, Armhole Baster Hand Performed By: #### C 709 #### [facility] [address] [place] [address] [address] [place] [address] MCH (RBC) [Entitic mass] 35.7 pg High 27.0-31.0 [facility] Comment on above: Order Comment: Items in this order include: Comprehensive Metabolic Panel, Lipid Panel, Uric Acid , Vit D 25 [place] (Total), CBC with differential, HgbA1C, , , , Slide Scan if Indicated, Manual Differential if IndicatedTesting Performed By: [facility] [address] [place] [address]. [place] [address] Dr. Donnie Jean, Armhole Baster Hand Performed By: #### C 709 #### [facility], [facility]. [address] [place] [address] [address] [place] [address] MCHC (RBC) [Mass/Vol] 31.9 g/dL Low 32.0-36.0 [facility] Comment on above: Order Comment: Items in this order include: Comprehensive Metabolic Panel, Lipid Panel, Uric Acid , Vit D 25 [place] (Total), CBC with differential, HgbA1C, , , , Slide Scan if Indicated, Manual Differential if IndicatedTesting Performed By: [facility] [address] [place] [address]. [place] [address] Dr. Donnie Jena, Armhole Baster Hand Performed By: #### C 709 #### [facility], [facility]. [address] [place] [address] [place] [address] MCV (RBC) [Entitic vol] 111.8 fL High 78.0-100.0 [facility] Comment on above: Order Comment: Items in this order include: Comprehensive Metabolic Panel, Lipid Panel, Uric Acid , Vit D 25 [place] (Total), CBC with differential, HgbA1C, , , , Slide Scan if Indicated, Manual Differential if IndicatedTesting Performed By: [facility] [address] [place] [address] [address] [address] Donnie Jean, Armhole Baster Hand Performed By: #### C 709 #### [facility] [address] [place] [address] [place] [address] Platelet mean volume (Bld) [Entitic vol] 10.5 fL Normal 8.9-12.6 [facility] Comment on above: Order Comment: Items in this order include: Comprehensive Metabolic Panel, Lipid Panel, Uric Acid , Vit D 25 [place] (Total), CBC with differential, HgbA1C, , , , Slide Scan if Indicated, Manual Differential if IndicatedTesting Performed By: [facility] [address] [place] [address] [address] [address] Donnie Jean, Armhole Baster Hand Performed By: #### C 709 #### [facility], [facility]. [address] [place] [address] [address] [place] [address] Platelets (Bld) [#/Vol] 356 K CUMM Normal 130-400 [facility] Comment on above: Order Comment: Items in this order include: Comprehensive Metabolic Panel, Lipid Panel, Uric Acid , Vit D 25 [place] (Total), CBC with differential, HgbA1C, , , , Slide Scan if Indicated, Manual Differential if IndicatedTesting Performed By: [facility] [address] [place] [address]. [place] [address] Dr. Donnie Jean, Armhole Baster Hand Performed By: #### C 709 #### [facility], [facility]. [address] [place] [address] [address] [place] [address] RBC (Bld) [#/Vol] 3.39 M CUMM Low 3.80-5.10 [facility] Comment on above: Order Comment: Items in this order include: Comprehensive Metabolic Panel, Lipid Panel, Uric Acid , Vit D 25 [place] (Total), CBC with differential, HgbA1C, , , , Slide Scan if Indicated, Manual Differential if IndicatedTesting Performed By: [facility] [address] [place] [address]. [place] [address] Dr. Donnie Jean, Armhole Baster Hand Performed By: #### Jany 709 #### [facility], [facility]. [address] [place] [address] [address] [place] [address] WBC (Bld) [#/Vol] 18.3 K CUMM High 3.8-10.6 [facility] Comment on above: Order Comment: Items in this order include: Comprehensive Metabolic Panel, Lipid Panel, Uric Acid , Vit D 25 [place] (Total), CBC with differential, HgbA1C, , , , Slide Scan if Indicated, Manual Differential if IndicatedTesting Performed By: [facility] [address] [place] [address]. [place] [address] Dr. Donnie Jean, Armhole Baster Hand Performed By: #### C 709 #### [facility], [facility]. [address] [place] [address] [address] [place] [address] Comprehensive Metabolic Pane donnie 06-21-2020 Albumin [Mass/Vol] 4.4 g/dL Normal 3.5-5.0 [facility] Comment on above: Order Comment: Items in this order include: Comprehensive Metabolic Panel, Lipid Panel, Uric Acid , Vit D 25 [place] (Total), CBC with differential, HgbA1C, , , , Slide Scan if Indicated, Manual Differential if IndicatedTesting Performed By: [facility] [address] [place] [address] Dr. Donnie Jean, Lab DirectorItems in this order include: Comprehensive Metabolic Panel, Lipid Panel, Uric Acid , Vit D 25 [place] (Total), CBC with differential, HgbA1C, , , , Manual Differential if Indicated Performed By: #### C 709 #### [facility] [address] [place] [address] [address] [place] [address] Alk Phos 66 U/L Normal 23-159 [facility] Comment on above: Order Comment: Items in this order include: Comprehensive Metabolic Panel, Lipid Panel, Uric Acid , Vit D 25 [place] (Total), CBC with differential, HgbA1C, , , , Slide Scan if Indicated, Manual Differential if IndicatedTesting Performed By: [facility] [address] [place], [place] [id number] Dr. Donnie Jean, Lab DirectorItems in this order include: Comprehensive Metabolic Panel, Lipid Panel, Uric Acid , Vit D 25 [place] (Total), CBC with differential, HgbA1C, , , , Manual Differential if Indicated Performed By: #### C 709 #### [facility], [facility]. [address] [place] [address] [address] [place] [address] ALT [Catalytic activity/Vol] 9 U/L Normal 0-38 [facility] Comment on above: Order Comment: Items in this order include: Comprehensive Metabolic Panel, Lipid Panel, Uric Acid , Vit D 25 [place] (Total), CBC with differential, HgbA1C, , , , Slide Scan if Indicated, Manual Differential if IndicatedTesting Performed By: [facility] [address] [place], [place] [id number] Dr. Donnie Jean, Lab DirectorItems in this order include: Comprehensive Metabolic Panel, Lipid Panel, Uric Acid , Vit D 25 [place] (Total), CBC with differential, HgbA1C, , , , Manual Differential if Indicated Performed By: #### C 709 #### [facility] [address] [place] [address] [address] [place] [address] AST [Catalytic activity/Vol] 17 U/L Normal 11-43 [facility] Comment on above: Order Comment: Items in this order include: Comprehensive Metabolic Panel, Lipid Panel, Uric Acid , Vit D 25 [place] (Total), CBC with differential, HgbA1C, , , , Slide Scan if Indicated, Manual Differential if IndicatedTesting Performed By: [facility] [address] [place] [address] [address] [address] Donnie Jean, Lab DirectorItems in this order include: Comprehensive Metabolic Panel, Lipid Panel, Uric Acid , Vit D 25 [place] (Total), CBC with differential, HgbA1C, , , , Manual Differential if Indicated Performed By: #### C 709 #### [address] [place] [address] Bilirubin [Mass/Vol] 0.3 mg/dL Normal 0.2-1.3 [facility] Comment on above: Order Comment: Items in this order include: Comprehensive Metabolic Panel, Lipid Panel, Uric Acid , Vit D 25 [place] (Total), CBC with differential, HgbA1C, , , , Slide Scan if Indicated, Manual Differential if IndicatedTesting Performed By: [facility] [address] [place] [address] [address] [address] Donnie Jean, Lab DirectorItems in this order include: Comprehensive Metabolic Panel, Lipid Panel, Uric Acid , Vit D 25 [place] (Total), CBC with differential, HgbA1C, , , , Manual Differential if Indicated Performed By: #### C 709 #### [facility], [facility]. [address] [place] [address] [address] [place] [address] Calcium [Mass/Vol] 10.1 mg/dL Normal 8.5-10.5 [facility] Comment on above: Order Comment: Items in this order include: Comprehensive Metabolic Panel, Lipid Panel, Uric Acid , Vit D 25 [place] (Total), CBC with differential, HgbA1C, , , , Slide Scan if Indicated, Manual Differential if IndicatedTesting Performed By: [facility] [address] [place] [address] [address] [address] Donnie Jean, Lab DirectorItems in this order include: Comprehensive Metabolic Panel, Lipid Panel, Uric Acid , Vit D 25 [place] (Total), CBC with differential, HgbA1C, , , , Manual Differential if Indicated Performed By: #### C 709 #### [facility], [facility]. [address] [place] [address] [address] [place] [address] Chloride [Moles/Vol] 106 mmol/L Normal 98-107 [facility] Comment on above: Order Comment: Items in this order include: Comprehensive Metabolic Panel, Lipid Panel, Uric Acid , Vit D 25 [place] (Total), CBC with differential, HgbA1C, , , , Slide Scan if Indicated, Manual Differential if IndicatedTesting Performed By: [facility] [address] [place] [address] [address] [address] Donnie Jean, Lab DirectorItems in this order include: Comprehensive Metabolic Panel, Lipid Panel, Uric Acid , Vit D 25 [place] (Total), CBC with differential, HgbA1C, , , , Manual Differential if Indicated Performed By: #### C 709 #### [facility] [address] [place] [address] [address] [place] [address] CO2 [Moles/Vol] 17.0 mmol/L Low 21.0-32.0 [facility] Comment on above: Order Comment: Items in this order include: Comprehensive Metabolic Panel, Lipid Panel, Uric Acid , Vit D 25 [place] (Total), CBC with differential, HgbA1C, , , , Slide Scan if Indicated, Manual Differential if IndicatedTesting Performed By: [facility] [address] [place] [address] [address] [address] Donnie Jean, Lab DirectorItems in this order include: Comprehensive Metabolic Panel, Lipid Panel, Uric Acid , Vit D 25 [place] (Total), CBC with differential, HgbA1C, , , , Manual Differential if Indicated Performed By: #### C 709 #### [facility], [facility]. [address] [place] [address] [address] [place] [address] Creatinine [Mass/Vol] 1.5 mg/dL High 0.1-1.2 [facility] Comment on above: Order Comment: Items in this order include: Comprehensive Metabolic Panel, Lipid Panel, Uric Acid , Vit D 25 [place] (Total), CBC with differential, HgbA1C, , , , Slide Scan if Indicated, Manual Differential if IndicatedTesting Performed By: [facility] [address] [place], [place] [address] [place] [address] Dr. Donnie Jean, Lab DirectorItems in this order include: Comprehensive Metabolic Panel, Lipid Panel, Uric Acid , Vit D 25 [place] (Total), CBC with differential, HgbA1C, , , , Manual Differential if Indicated Performed By: #### C 709 #### [facility] [address] [place] [address] [place] [address] GFR/1.73 sq M.predicted MDRD (S/P/Bld) [Vol rate/Area] 33 mL/min per 1.73 Low >60 [facility] Comment on above: Order Comment: Items in this order include: Comprehensive Metabolic Panel, Lipid Panel, Uric Acid , Vit D 25 [place] (Total), CBC with differential, HgbA1C, , , , Slide Scan if Indicated, Manual Differential if IndicatedTesting Performed By: [facility] [address] [place] [address]. [place] [address] Dr. Donnie Jean, Lab DirectorItems in this order include: Comprehensive Metabolic Panel, Lipid Panel, Uric Acid , Vit D 25 [place] (Total), CBC with differential, HgbA1C, , , , Manual Differential if Indicated Result Comment: The GFR estimate is not adjusted for race. If the patient's race is -Moroc[place], the GFR estimate must be multiplied by a factor of 1.21. Performed By: #### C 709 #### [facility] [address] [place], [place] [address] [place] [address] Glucose [Mass/Vol] 108 mg/dL High 74-100 [facility] Comment on above: Order Comment: Items in this order include: Comprehensive Metabolic Panel, Lipid Panel, Uric Acid , Vit D 25 [place] (Total), CBC with differential, HgbA1C, , , , Slide Scan if Indicated, Manual Differential if IndicatedTesting Performed By: [facility] [place] [address] Dr. Donnie Jean, Lab DirectorItems in this order include: Comprehensive Metabolic Panel, Lipid Panel, Uric Acid , Vit D 25 [place] (Total), CBC with differential, HgbA1C, , , , Manual Differential if Indicated Performed By: #### C 709 #### [facility], [facility]. [address] [place] [address] [address] [place] [address] Potassium [Moles/Vol] 4.7 mmol/L Normal 3.5-5.3 [facility] Comment on above: Order Comment: Items in this order include: Comprehensive Metabolic Panel, Lipid Panel, Uric Acid , Vit D 25 [place] (Total), CBC with differential, HgbA1C, , , , Slide Scan if Indicated, Manual Differential if IndicatedTesting Performed By: [facility] [address] [place] [address] [address] [address] Donnie Jean, Lab DirectorItems in this order include: Comprehensive Metabolic Panel, Lipid Panel, Uric Acid , Vit D 25 [place] (Total), CBC with differential, HgbA1C, , , , Manual Differential if Indicated Performed By: #### C 709 #### [facility], [address] [place] [address] Protein [Mass/Vol] 7.4 g/dL Normal 6.3-8.4 [facility] Comment on above: Order Comment: Items in this order include: Comprehensive Metabolic Panel, Lipid Panel, Uric Acid , Vit D 25 [place] (Total), CBC with differential, HgbA1C, , , , Slide Scan if Indicated, Manual Differential if IndicatedTesting Performed By: [facility] [address] [place] [address] [address] [address] Donnie Jean, Lab DirectorItems in this order include: Comprehensive Metabolic Panel, Lipid Panel, Uric Acid , Vit D 25 [place] (Total), CBC with differential, HgbA1C, , , , Manual Differential if Indicated Performed By: #### C 709 #### [facility], [facility]. [address] [place] [address] [address] [place] [address] Sodium [Moles/Vol] 139 mmol/L Normal 135-145 [facility] Comment on above: Order Comment: Items in this order include: Comprehensive Metabolic Panel, Lipid Panel, Uric Acid , Vit D 25 [place] (Total), CBC with differential, HgbA1C, , , , Slide Scan if Indicated, Manual Differential if IndicatedTesting Performed By: [facility] [address] [place], [place] [id number] Dr. Donnie Jean, Lab DirectorItems in this order include: Comprehensive Metabolic Panel, Lipid Panel, Uric Acid , Vit D 25 [place] (Total), CBC with differential, HgbA1C, , , , Manual Differential if Indicated Performed By: #### C 709 #### [facility] [address] [place] [address] [address] [place] [address] Urea nitrogen [Mass/Vol] 36 mg/dL High 6-22 [facility] Comment on above: Order Comment: Items in this order include: Comprehensive Metabolic Panel, Lipid Panel, Uric Acid , Vit D 25 [place] (Total), CBC with differential, HgbA1C, , , , Slide Scan if Indicated, Manual Differential if IndicatedTesting Performed By: [facility] [address] [place], [place] [id number] Dr. Donnie Jean, Lab DirectorItems in this order include: Comprehensive Metabolic Panel, Lipid Panel, Uric Acid , Vit D 25 [place] (Total), CBC with differential, HgbA1C, , , , Manual Differential if Indicated Performed By: #### C 709 #### [facility] [address] [place] [address] [address] [place] [address] [id number] 06-21-2020 HbA1c (Bld) [Mass fraction] 6.3 % High <5.7 [facility] Comment on above: Order Comment: Items in this order include: Comprehensive Metabolic Panel, Lipid Panel, Uric Acid , Vit D 25 [place] (Total), CBC with differential, HgbA1C, , , , Slide Scan if Indicated, Manual Differential if IndicatedTesting Performed By: [facility] [address] [place] [address]. [place] [address] Dr. Donnie Jean, Lab DirectorItems in this order include: Comprehensive Metabolic Panel, Lipid Panel, Uric Acid , Vit D 25 [place] (Total), CBC with differential, HgbA1C, , , , Manual Differential if Indicated Result Comment: Refe rence Interval: Normal: below 5.7%. Prediabetes: 5.7% to 6.4%. Diabetes: 6.5% or above. Performed By: #### C 709 #### [facility] [address] [place] [address] Lipid Panelon 06-21-2020 Cholesterol [Mass/Vol] 124 mg/dL Normal <200 [facility] Comment on above: Performed By: #### C 709 #### [facility] [address] [place] [address] Cholesterol in HDL [Mass/Vol] 34 mg/dL Low >50 [facility] Comment on above: Performed By: #### C 709 #### [facility] [address] [place] [address] Cholesterol in LDL [Mass/Vol] 49 mg/dL Normal <130 [facility] Comment on above: Performed By: #### C 709 #### [facility] [address] [place] [address] Cholesterol.total/C holesterol in HDL [Mass ratio] 3.6 {ratio} Normal <4.0 [facility] Comment on above: Performed By: #### C 709 #### [facility] [address] [place] [address] Non-HDL Chol 90 Normal LDL Goal + 30 [facility] Comment on above: Result Comment: LDL and Non-HDL goal dependent upon individual risk Performed By: #### C 709 #### [facility] [address] [place] [address] Triglyceride [Mass/Vol] 206 mg/dL High <150 [facility] Comment on above: Performed By: #### C 709 #### [facility] [address] [place] [address] VLDL-Calc 41 mg/dl High <30 [facility] Comment on above: Performed By: #### C 709 #### [facility] [place] [address] Manual Differential if Indic atedon 06-21-2020 Anisocytosis Ql (Bld) MODERATE Normal [facility] Comment on above: Order Comment: Items in this order include: Comprehensive Metabolic Panel, Lipid Panel, Uric Acid , Vit D 25 [place] (Total), CBC with differential, HgbA1C, , , , Slide Scan if Indicated, Manual Differential if IndicatedTesting Performed By: [facility] [address] [place] [address]. [place] [address] Dr. Donnie Jean, Lab DirectorItems in this order include: Comprehensive Metabolic Panel, Lipid Panel, Uric Acid , Vit D 25 [place] (Total), CBC with differential, HgbA1C, , , , Manual Differential if IndicatedReceived comment: User comments: Slide comments: Performed By: #### C 709 #### [facility] [address] [place] [address] [address] [place] [address] Basophils 1 % Normal [facility] Comment on above: Order Comment: Items in this order include: Comprehensive Metabolic Panel, Lipid Panel, Uric Acid , Vit D 25 [place] (Total), CBC with differential, HgbA1C, , , , Slide Scan if Indicated, Manual Differential if IndicatedTesting Performed By: [facility] [address] [place] [address]. [place] [address] Dr. Donnie Jean, Lab DirectorItems in this order include: Comprehensive Metabolic Panel, Lipid Panel, Uric Acid , Vit D 25 [place] (Total), CBC with differential, HgbA1C, , , , Manual Differential if IndicatedReceived comment: User comments: Slide comments: Performed By: #### C 709 #### [facility] [address] [place] [address] [address] [place] [address] Lymphocytes 7 % Low 20-51 [facility] Comment on above: Order Comment: Items in this order include: Comprehensive Metabolic Panel, Lipid Panel, Uric Acid , Vit D 25 [place] (Total), CBC with differential, HgbA1C, , , , Slide Scan if Indicated, Manual Differential if IndicatedTesting Performed By: [facility] [address] [place] [address]. [place] [address] Dr. Donnie Jean, Lab DirectorItems in this order include: Comprehensive Metabolic Panel, Lipid Panel, Uric Acid , Vit D 25 [place] (Total), CBC with differential, HgbA1C, , , , Manual Differential if IndicatedReceived comment: User comments: Slide comments: Performed By: #### C 709 #### [facility] [address] [place] [address] [address] [place] [address] Macrocytes Ql (Bld) SLIGHT Normal [facility] Comment on above: Order Comment: Items in this order include: Comprehensive Metabolic Panel, Lipid Panel, Uric Acid , Vit D 25 [place] (Total), CBC with differential, HgbA1C, , , , Slide Scan if Indicated, Manual Differential if IndicatedTesting Performed By: [facility] [address] [place] [address]. [place] [address] Dr. Donnie Jean, Lab DirectorItems in this order include: Comprehensive Metabolic Panel, Lipid Panel, Uric Acid , Vit D 25 [place] (Total), CBC with differential, HgbA1C, , , , Manual Differential if IndicatedReceived comment: User comments: Slide comments: Performed By: #### C 709 #### [facility] [address] [place] [address] [address] [place] [address] Metamyelocytes 3 % High <2 [facility] Comment on above: Order Comment: Items in this order include: Comprehensive Metabolic Panel, Lipid Panel, Uric Acid , Vit D 25 [place] (Total), CBC with differential, HgbA1C, , , , Slide Scan if Indicated, Manual Differential if IndicatedTesting Performed By: [facility] [address] [place] [address]. [place] [address] Dr. Donnie Jean, Lab DirectorItems in this order include: Comprehensive Metabolic Panel, Lipid Panel, Uric Acid , Vit D 25 [place] (Total), CBC with differential, HgbA1C, , , , Manual Differential if IndicatedReceived comment: User comments: Slide comments: Performed By: #### C 709 #### [facility] [address] [place] [address] [address] [place] [address] Microcytes SLIGHT Normal SLIGHT [facility] Comment on above: Order Comment: Items in this order include: Comprehensive Metabolic Panel, Lipid Panel, Uric Acid , Vit D 25 [place] (Total), CBC with differential, HgbA1C, , , , Slide Scan if Indicated, Manual Differential if IndicatedTesting Performed By: [facility] [address] [place] [address]. [place] [address] Dr. Donnie Jean, Lab DirectorItems in this order include: Comprehensive Metabolic Panel, Lipid Panel, Uric Acid , Vit D 25 [place] (Total), CBC with differential, HgbA1C, , , , Manual Differential if IndicatedReceived comment: User comments: Slide comments: Performed By: #### C 709 #### [facility] [address] [place] [address] [address] [place] [address] Neutrophils 89 % High 42-75 [facility] Comment on above: Order Comment: Items in this order include: Comprehensive Metabolic Panel, Lipid Panel, Uric Acid , Vit D 25 [place] (Total), CBC with differential, HgbA1C, , , , Slide Scan if Indicated, Manual Differential if IndicatedTesting Performed By: [facility] [address] [place] [address]. [place] [address] Dr. Donnie Jean, Lab DirectorItems in this order include: Comprehensive Metabolic Panel, Lipid Panel, Uric Acid , Vit D 25 [place] (Total), CBC with differential, HgbA1C, , , , Manual Differential if IndicatedReceived comment: User comments: Slide comments: Performed By: #### C 709 #### [facility] [address] [place] [address] [address] [place] [address] Polychromasia SLIGHT Normal [facility] Comment on above: Order Comment: Items in this order include: Comprehensive Metabolic Panel, Lipid Panel, Uric Acid , Vit D 25 [place] (Total), CBC with differential, HgbA1C, , , , Slide Scan if Indicated, Manual Differential if IndicatedTesting Performed By: [facility] [address] [place] [address]. [place] [address] Dr. Donnie Jean, Lab DirectorItems in this order include: Comprehensive Metabolic Panel, Lipid Panel, Uric Acid , Vit D 25 [place] (Total), CBC with differential, HgbA1C, , , , Manual Differential if IndicatedReceived comment: User comments: Slide comments: Performed By: #### C 709 #### [facility] [address] [place] [address] [address] [place] [address] Uric Acidon 06-21-2020 Urate [Mass/Vol] 9.0 mg/dL High 2.5-6.2 [facility] Comment on above: Performed By: #### C 709 #### [facility] [address] [place] [address] [address] [place] [address] Vit D 25 [place] (Total)on 2019 Vit D 25 [place] (Total) 36.9 ng/ml Normal 31.0-100.0 [facility] Comment on above: Order Comment: Items in this order include: Comprehensive Metabolic Panel, Lipid Panel, Uric Acid , Vit D 25 [place] (Total), CBC with differential, HgbA1C, , , , Slide Scan if Indicated, Manual Differential if IndicatedTesting Performed By: [facility] [address] [place] [address]. [place] [address] Dr. Donnie Jean, Lab DirectorItems in this order include: Comprehensive Metabolic Panel, Lipid Panel, Uric Acid , Vit D 25 [place] (Total), CBC with differential, HgbA1C, , , , Manual Differential if Indicated Result Comment: Defi ciency <10 ng/ml Insufficiency 10-30 ng/ml Sufficiency 31-100 ng/ml Toxicity >100 ng/ml Performed By: #### C 709 #### [facility] [address] [place] [address] [address] [place] [address] [place] Mammo Digital Diag RT w t [...] digital bilateral mammogram images. Computer-aided detection utilizing [employer] reader has been performed. BREAST COMPOSITION: There [...] will be immediately mailed to the patient. [facility] thanks you for the opportunity to care for your patient. Workstation ID: [id number] - [id number] FINAL REPORT Dictated By: Jazlyn Stuart MD 02/03/2020 14:27 Assigned Physician: Jazlyn Stuart MD Reviewed and Electronically Signed By: Jazlyn Stuart MD 02/03/2020 14:28 Transcribed by: OSKAR 02/03/2020 14:27 Technologist: PRINCE Cam [facility] Mammo Digital Screen bila t w [...] digital bilateral mammogram images. Computer-aided detection utilizing [employer]ran[employer] reader has been performed. BREAST COMPOSITION: There [...] will be immediately mailed to the patient. [facility] thanks you for the opportunity to care for your patient. Workstation ID: [id number] - [id number] FINAL REPORT Dictated By: Jazlyn Stuart MD 02/01/2020 14:28 Assigned Physician: Jazlyn Stuart MD Reviewed and Electronically Signed By: Jazlyn Stuart MD 02/01/2020 14:29 Transcribed by: OSKAR 02/01/2020 14:28 Technologist: JEROME Cam [facility] CBC with differentialon Erythrocyte distribution width (RBC) [Ratio] 14.7 % Normal 11.5-15.5 [facility] Comment on above: Order Comment: Items in this order include: Cholesterol, Comprehensive Metabolic Panel, Direct LDL , HDL, Uric Acid , CBC with differential, HgbA1C, , , Slide Scan if Indicated, Manual Differential if Indicated Testing Performed By: [facility] [address] [place] [address] Dr. Donnie Jean, Armhole Baster Hand Items in this order include: Cholesterol, Comprehensive Metabolic Panel, Direct LDL , HDL, Uric Acid , CBC with differential, HgbA1C, , , Slide Scan if Indicated, Manual Differential if Indicated Testing Performed By: [facility] [address] [place] [address]. [place] [address] Dr. Donnie Jean, [employer]hole Baster Hand Items in this order include: Cholesterol, Comprehensive Metabolic Panel, Direct LDL , HDL, Uric Acid , CBC with differential, HgbA1C, , , Slide Scan if Indicated, Manual Differential if Indicated Testing Performed By: [facility] [address] [place] [address] Dr. Donnie Jean, [employer]hole Baster Hand Performed By: #### C 120, C141, C116, C406, C4521, C118, C47, C4523, C215 #### [facility], [facility]. [address] [place] [address] [address] [place] [address] Hematocrit (Bld) [Volume fraction] 40.6 % Normal 37.0-47.0 [facility] Comment on above: Order Comment: Items in this order include: Cholesterol, Comprehensive Metabolic Panel, Direct LDL , HDL, Uric Acid , CBC with differential, HgbA1C, , , Slide Scan if Indicated, Manual Differential if Indicated Testing Performed By: [facility] [address] [place] [address] Dr. Donnie Jean, Armhole Baster Hand Items in this order include: Cholesterol, Comprehensive Metabolic Panel, Direct LDL , HDL, Uric Acid , CBC with differential, HgbA1C, , , Slide Scan if Indicated, Manual Differential if Indicated Testing Performed By: [facility] [address] [place] [address] Dr. Donnie Jean, Armhole Baster Hand Items in this order include: Cholesterol, Comprehensive Metabolic Panel, Direct LDL , HDL, Uric Acid , CBC with differential, HgbA1C, , , Slide Scan if Indicated, Manual Differential if Indicated Testing Performed By: [facility] [address] [place] [address] Dr. Donnie Jean, Armhole Baster Hand Performed By: #### C 120, C141, C116, C406, C4521, C118, C47, C4523, C215 #### [facility] [address] [place] [address] [address] [place] [id number] Hemoglobin (Bld) [Mass/Vol] 12.9 g/dL Normal 11.5-15.5 [facility] Comment on above: Order Comment: Items in this order include: Cholesterol, Comprehensive Metabolic Panel, Direct LDL , HDL, Uric Acid , CBC with differential, HgbA1C, , , Slide Scan if Indicated, Manual Differential if Indicated Testing Performed By: [facility] [address] [place] [address] Dr. Donnie Jean, Armhole Baster Hand Items in this order include: Cholesterol, Comprehensive Metabolic Panel, Direct LDL , HDL, Uric Acid , CBC with differential, HgbA1C, , , Slide Scan if Indicated, Manual Differential if Indicated Testing Performed By: [facility] [address] [place], [place] [id number] Dr. Donnie Jean, Armhole Baster Hand Items in this order include: Cholesterol, Comprehensive Metabolic Panel, Direct LDL , HDL, Uric Acid , CBC with differential, HgbA1C, , , Slide Scan if Indicated, Manual Differential if Indicated Testing Performed By: [facility] [address] [place], [place] [address] Dr. Donnie Jean, Armhole Baster Hand Performed By: #### C 120, C141, C116, C406, C4521, C118, C47, C4523, C215 #### [facility] [address] [place] [address] [address] [place] [address] MCH (RBC) [Entitic mass] 35.1 pg High 27.0-31.0 [facility] Comment on above: Order Comment: Items in this order include: Cholesterol, Comprehensive Metabolic Panel, Direct LDL , HDL, Uric Acid , CBC with differential, HgbA1C, , , Slide Scan if Indicated, Manual Differential if Indicated Testing Performed By: [facility] [address] [place] [address]. [place] [address] Dr. Donnie Jean, Armhole Baster Hand Items in this order include: Cholesterol, Comprehensive Metabolic Panel, Direct LDL , HDL, Uric Acid , CBC with differential, HgbA1C, , , Slide Scan if Indicated, Manual Differential if Indicated Testing Performed By: [facility] [address] [place] [address]. [place] [address] Dr. Donnie Jean, Armhole Baster Hand Items in this order include: Cholesterol, Comprehensive Metabolic Panel, Direct LDL , HDL, Uric Acid , CBC with differential, HgbA1C, , , Slide Scan if Indicated, Manual Differential if Indicated Testing Performed By: [facility] [address] [place] [address] Dr. Donnie Jean, Armhole Baster Hand Performed By: #### C 120, C141, C116, C406, C4521, C118, C47, C4523, C215 #### [facility], [facility]. [address] [place] [address] [address] [place] [address] MCHC (RBC) [Mass/Vol] 31.8 g/dL Low 32.0-36.0 [facility] Comment on above: Order Comment: Items in this order include: Cholesterol, Comprehensive Metabolic Panel, Direct LDL , HDL, Uric Acid , CBC with differential, HgbA1C, , , Slide Scan if Indicated, Manual Differential if Indicated Testing Performed By: [facility] [address] [place] [address] Dr. Donnie Jean, Armhole Baster Hand Items in this order include: Cholesterol, Comprehensive Metabolic Panel, Direct LDL , HDL, Uric Acid , CBC with differential, HgbA1C, , , Slide Scan if Indicated, Manual Differential if Indicated Testing Performed By: [facility] [address] [place] [address] Dr. Donnie Jean, Armhole Baster Hand Items in this order include: Cholesterol, Comprehensive Metabolic Panel, Direct LDL , HDL, Uric Acid , CBC with differential, HgbA1C, , , Slide Scan if Indicated, Manual Differential if Indicated Testing Performed By: [facility] [address] [place] [address]. [place] [address] Dr. Donnie Jean, Armhole Baster Hand Performed By: #### C 120, C141, C116, C406, C4521, C118, C47, C4523, C215 #### [facility] [address] [place] [address] MCV (RBC) [Entitic vol] 110.6 fL High 78.0-100.0 [facility] Comment on above: Order Comment: Items in this order include: Cholesterol, Comprehensive Metabolic Panel, Direct LDL , HDL, Uric Acid , CBC with differential, HgbA1C, , , Slide Scan if Indicated, Manual Differential if Indicated Testing Performed By: [facility] [address] [place] [address] Dr. Donnie Jean, Armhole Baster Hand Items in this order include: Cholesterol, Comprehensive Metabolic Panel, Direct LDL , HDL, Uric Acid , CBC with differential, HgbA1C, , , Slide Scan if Indicated, Manual Differential if Indicated Testing Performed By: [facility] [address] [place] [address] Dr. Donnie Jean, Armhole Baster Hand Items in this order include: Cholesterol, Comprehensive Metabolic Panel, Direct LDL , HDL, Uric Acid , CBC with differential, HgbA1C, , , Slide Scan if Indicated, Manual Differential if Indicated Testing Performed By: [facility] [address] [place] [address] Dr. Donnie Jean, Armhole Baster Hand Performed By: #### C 120, C141, C116, C406, C4521, C118, C47, C4523, C215 #### [facility] [address] [place] [address] Platelet mean volume (Bld) [Entitic vol] 10.6 fL Normal 8.9-12.6 [facility] Comment on above: Order Comment: Items in this order include: Cholesterol, Comprehensive Metabolic Panel, Direct LDL , HDL, Uric Acid , CBC with differential, HgbA1C, , , Slide Scan if Indicated, Manual Differential if Indicated Testing Performed By: [facility] [address] [place] [address]. [place] [address] Dr. Donnie Jean, Armhole Baster Hand Items in this order include: Cholesterol, Comprehensive Metabolic Panel, Direct LDL , HDL, Uric Acid , CBC with differential, HgbA1C, , , Slide Scan if Indicated, Manual Differential if Indicated Testing Performed By: [facility] [address] [place] [address]. [place] [address] Dr. Donnie Jean, Armhole Baster Hand Items in this order include: Cholesterol, Comprehensive Metabolic Panel, Direct LDL , HDL, Uric Acid , CBC with differential, HgbA1C, , , Slide Scan if Indicated, Manual Differential if Indicated Testing Performed By: [facility] [address] [place] [address]. [place] [address] Dr. Donnie Jean, Armhole Baster Hand Performed By: #### C 120, C141, C116, C406, C4521, C118, C47, C4523, C215 #### [facility], [facility]. [address] [place] [address] [address] [place] [address] Platelets (Bld) [#/Vol] 302 K CUMM Normal 130-400 [facility] Comment on above: Order Comment: Items in this order include: Cholesterol, Comprehensive Metabolic Panel, Direct LDL , HDL, Uric Acid , CBC with differential, HgbA1C, , , Slide Scan if Indicated, Manual Differential if Indicated Testing Performed By: [facility] [address] [place] [address]. [place] [address] Dr. Donnie Jean, Armhole Baster Hand Items in this order include: Cholesterol, Comprehensive Metabolic Panel, Direct LDL , HDL, Uric Acid , CBC with differential, HgbA1C, , , Slide Scan if Indicated, Manual Differential if Indicated Testing Performed By: [facility] [address] [place] [address]. [place] [address] Dr. Donnie Jean, Armhole Baster Hand Items in this order include: Cholesterol, Comprehensive Metabolic Panel, Direct LDL , HDL, Uric Acid , CBC with differential, HgbA1C, , , Slide Scan if Indicated, Manual Differential if Indicated Testing Performed By: [facility] [address] [place] [address]. [place] [address] Dr. Donnie Jean, Armhole Baster Hand Performed By: #### C 120, C141, C116, C406, C4521, C118, C47, C4523, C215 #### [facility] [address] [place] [address] RBC (Bld) [#/Vol] 3.67 M CUMM Low 3.80-5.10 [facility] Comment on above: Order Comment: Items in this order include: Cholesterol, Comprehensive Metabolic Panel, Direct LDL , HDL, Uric Acid , CBC with differential, HgbA1C, , , Slide Scan if Indicated, Manual Differential if Indicated Testing Performed By: [facility] [address] [place] [address]. [place] [address] Dr. Donnie Jean, Armhole Baster Hand Items in this order include: Cholesterol, Comprehensive Metabolic Panel, Direct LDL , HDL, Uric Acid , CBC with differential, HgbA1C, , , Slide Scan if Indicated, Manual Differential if Indicated Testing Performed By: [facility] [address] [place] [address]. [place] [id number] Dr[address] Donnie Jean, Armhole Baster Hand Items in this order include: Cholesterol, Comprehensive Metabolic Panel, Direct LDL , HDL, Uric Acid , CBC with differential, HgbA1C, , , Slide Scan if Indicated, Manual Differential if Indicated Testing Performed By: [facility] [address] [place] [address]. [place] [address] Dr. Donnie Jean, Armhole Baster Hand Performed By: #### C 120, C141, C116, C406, C4521, C118, C47, C4523, C215 #### [facility] [address] [place] [address] WBC (Bld) [#/Vol] 19.7 K CUMM High 3.8-10.6 [facility] Comment on above: Order Comment: Items in this order include: Cholesterol, Comprehensive Metabolic Panel, Direct LDL , HDL, Uric Acid , CBC with differential, HgbA1C, , , Slide Scan if Indicated, Manual Differential if Indicated Testing Performed By: [facility] [address] [place] [address]. [place] [address] Dr. Donnie Jean, Armhole Baster Hand Items in this order include: Cholesterol, Comprehensive Metabolic Panel, Direct LDL , HDL, Uric Acid , CBC with differential, HgbA1C, , , Slide Scan if Indicated, Manual Differential if Indicated Testing Performed By: [facility] [address] [place] [address]. [place] [address] Dr. Donnie Jean, Armhole Baster Hand Items in this order include: Cholesterol, Comprehensive Metabolic Panel, Direct LDL , HDL, Uric Acid , CBC with differential, HgbA1C, , , Slide Scan if Indicated, Manual Differential if Indicated Testing Performed By: [facility] [address] [place] [address]. [place] [address] Dr. Donnie Jean, Armhole Baster Hand Performed By: #### C 120, C141, C116, C406, C4521, C118, C47, C4523, C215 #### [facility] [address] [place] [address] Suite - [place] [id number] Cholesterolon 01-18-2020 Cholesterol [Mass/Vol] 112 mg/dL Normal <200 [facility] Comment on above: Order Comment: Items in this order include: Cholesterol, Comprehensive Metabolic Panel, Direct LDL , HDL, Uric Acid , CBC with differential, HgbA1C, , , Slide Scan if Indicated, Manual Differential if Indicated Testing Performed By: [facility] [address] [place] [address]. [place] [id number] Dr. Donnie Jean, Armhole Baster Hand Performed By: #### C 120, C141, C116, C406, C4521, C118, C47, C4523, C215 #### [facility] [address] [place] [address] [place] [address] Comprehensive Metabolic Pane donnie 01-18-2020 Albumin [Mass/Vol] 4.0 g/dL Normal 3.5-5.0 [facility] Comment on above: Performed By: #### C 120, C141, C116, C406, C4521, C118, C47, C4523, C215 #### [facility] [address] [place] [address] Alk Phos 74 U/L Normal 23-159 [facility] Comment on above: Performed By: #### C 120, C141, C116, C406, C4521, C118, C47, C4523, C215 #### [facility] [address] [place] [address] ALT [Catalytic activity/Vol] 18 U/L Normal 0-38 [facility] Comment on above: Performed By: #### C 120, C141, C116, C406, C4521, C118, C47, C4523, C215 #### [facility] [address] [place] [address] AST [Catalytic activity/Vol] 22 U/L Normal 11-43 [facility] Comment on above: Performed By: #### C 120, C141, C116, C406, C4521, C118, C47, C4523, C215 #### [facility] [address] [place] [address] Bilirubin [Mass/Vol] 0.6 mg/dL Normal 0.2-1.3 [facility] Comment on above: Performed By: #### C 120, C141, C116, C406, C4521, C118, C47, C4523, C215 #### [facility] [address] [place] [address] Calcium [Mass/Vol] 9.2 mg/dL Normal 8.5-10.5 [facility] Comment on above: Performed By: #### C 120, C141, C116, C406, C4521, C118, C47, C4523, C215 #### [facility] [address] [place] [address] Chloride [Moles/Vol] 101 mmol/L Normal 98-107 [facility] Comment on above: Performed By: #### C 120, C141, C116, C406, C4521, C118, C47, C4523, C215 #### [facility] [address] [place] [address] CO2 [Moles/Vol] 22.0 mmol/L Normal 21.0-32.0 [facility] Comment on above: Performed By: #### C 120, C141, C116, C406, C4521, C118, C47, C4523, C215 #### [facility] [address] [place] [address] Creatinine [Mass/Vol] 1.2 mg/dL Normal 0.1-1.2 [facility] Comment on above: Performed By: #### C 120, C141, C116, C406, C4521, C118, C47, C4523, C215 #### [facility] [address] [place] [address] GFR/1.73 sq M.predicted MDRD (S/P/Bld) [Vol rate/Area] 43 mL/min per 1.73 Low >60 [facility] Comment on above: Result Comment: The GFR estimate is not adjusted for race. If the patient's race is -Moroc[place], the GFR estimate must be multiplied by a factor of 1.21. Performed By: #### C 120, C141, C116, C406, C4521, C118, C47, C4523, C215 #### [facility] [address] [place] [address] Glucose [Mass/Vol] 157 mg/dL High 74-100 [facility] Comment on above: Performed By: #### C 120, C141, C116, C406, C4521, C118, C47, C4523, C215 #### [facility] [address] [place] [address] Potassium [Moles/Vol] 4.3 mmol/L Normal 3.5-5.3 [facility] Comment on above: Performed By: #### C 120, C141, C116, C406, C4521, C118, C47, C4523, C215 #### [facility] [address] [place] [address] Protein [Mass/Vol] 6.7 g/dL Normal 6.3-8.4 [facility] Comment on above: Performed By: #### C 120, C141, C116, C406, C4521, C118, C47, C4523, C215 #### [facility] [address] [place] [address] Sodium [Moles/Vol] 136 mmol/L Normal 135-145 [facility] Comment on above: Performed By: #### C 120, C141, C116, C406, C4521, C118, C47, C4523, C215 #### [facility] [address] [place] [address] Urea nitrogen [Mass/Vol] 25 mg/dL High 6-22 [facility] Comment on above: Performed By: #### C 120, C141, C116, C406, C4521, C118, C47, C4523, C215 #### [facility] [address] [place] [address] Direct LDLon 01-18-2020 Cholesterol in LDL [Mass/Vol] 49 mg/dL Normal <130 [facility] Comment on above: Order Comment: Items in this order include: Cholesterol, Comprehensive Metabolic Panel, Direct LDL , HDL, Uric Acid , CBC with differential, HgbA1C, , , Slide Scan if Indicated, Manual Differential if Indicated Testing Performed By: [facility] [place] [address] Dr. Donnie Jean, Armhole Baster Hand Result Comment: LDL goal dependent upon individual risk Performed By: #### C 120, C141, C116, C406, C4521, C118, C47, C4523, C215 #### [facility] [address] [place] [address] HDLon 01-18-2020 Cholesterol in HDL [Mass/Vol] 30 mg/dL Low >50 [facility] Comment on above: Performed By: #### C 120, C141, C116, C406, C4521, C118, C47, C4523, C215 #### [facility] [address] [place] [address] [id number] 01-18-2020 HbA1c (Bld) [Mass fraction] 6.7 % High <5.7 [facility] Comment on above: Order Comment: Items in this order include: Cholesterol, Comprehensive Metabolic Panel, Direct LDL , HDL, Uric Acid , CBC with differential, HgbA1C, , , Slide Scan if Indicated, Manual Differential if IndicatedTesting Performed By: [facility] [address] [place] [address]. [place] [address] Dr. Donnie Jean, Armhole Baster Hand Result Comment: Refe rence Interval: Normal: below 5.7%. Prediabetes: 5.7% to 6.4%. Diabetes: 6.5% or above. Performed By: #### C 709 #### [facility] [address] [place] [address] Manual Differential if Indic atedon 01-18-2020 Anisocytosis Ql (Bld) SLIGHT Normal [facility] Comment on above: Order Comment: Recei mandy comment: User comments: Slide comments: Performed By: #### C 120, C141, C116, C406, C4521, C118, C47, C4523, C215 #### [facility] [address] [place] [address] Performed By: #### C 709 #### [facility] [address] [place] [address] Basophils 2 % Normal [facility] Comment on above: Order Comment: Recei mandy comment: User comments: Slide comments: Performed By: #### C 120, C141, C116, C406, C4521, C118, C47, C4523, C215 #### [facility] [address] [place] [address] Luna Cells SLIGHT Normal [facility] Comment on above: Order Comment: Recei mandy comment: User comments: Slide comments: Performed By: #### C 120, C141, C116, C406, C4521, C118, C47, C4523, C215 #### [facility] [address] [place] [address] Performed By: #### C 709 #### [facility] [address] [place] [address] Hypochromasia SLIGHT Normal SLIGHT [facility] Comment on above: Order Comment: Recei mandy comment: User comments: Slide comments: Performed By: #### C 120, C141, C116, C406, C4521, C118, C47, C4523, C215 #### [facility] [address] [place] [address] Performed By: #### C 709 #### [facility] [address] [place] [address] Lymphocytes 4 % Low 20-51 [facility] Comment on above: Order Comment: Recei mandy comment: User comments: Slide comments: Performed By: #### C 120, C141, C116, C406, C4521, C118, C47, C4523, C215 #### [facility] [address] [place] [address] Macrocytes Ql (Bld) SLIGHT Normal [facility] Comment on above: Order Comment: Recei mandy comment: User comments: Slide comments: Performed By: #### C 120, C141, C116, C406, C4521, C118, C47, C4523, C215 #### [facility] [address] [place] [address] Performed By: #### C 709 #### [facility] [address] [place] [address] Monocytes 3 % Normal 2-9 [facility] Comment on above: Order Comment: Recei mandy comment: User comments: Slide comments: Performed By: #### C 120, C141, C116, C406, C4521, C118, C47, C4523, C215 #### [facility] [address] [place] [address] Neutrophils 91 % High 42-75 [facility] Comment on above: Order Comment: Recei mandy comment: User comments: Slide comments: Performed By: #### C 120, C141, C116, C406, C4521, C118, C47, C4523, C215 #### [facility] [address] [place] [address] Ovalocytes SLIGHT Normal [facility] Comment on above: Order Comment: Recei mandy comment: User comments: Slide comments: Performed By: #### C 120, C141, C116, C406, C4521, C118, C47, C4523, C215 #### [facility] [address] [place] [address] Performed By: #### C 709 #### [facility] [address] [place] [address] Poikilocytosis SLIGHT Normal [facility] Comment on above: Order Comment: Recei mandy comment: User comments: Slide comments: Performed By: #### C 120, C141, C116, C406, C4521, C118, C47, C4523, C215 #### [facility] [address] [place] [address] Performed By: #### C 709 #### [facility] [address] [place] [address] Polychromasia SLIGHT Normal [facility] Comment on above: Order Comment: Recei mandy comment: User comments: Slide comments: Performed By: #### C 120, C141, C116, C406, C4521, C118, C47, C4523, C215 #### [facility] [address] [place] [address] Performed By: #### C 709 #### [facility] [address] [place] [address] Uric Acidon 01-18-2020 Urate [Mass/Vol] 5.2 mg/dL Normal 2.5-6.2 [facility] Comment on above: Performed By: #### C 120, C141, C116, C406, C4521, C118, C47, C4523, C215 #### [facility] [address] [place] [address] Vital Signs Date Time Vital Sign Value Performing Clinician Geoi yohana 01-06-2024 14:30-0500 Body height 162.6 cm Leighton Horvath MD Work Phone: [facility] 01-06-2024 14:30-0500 Body mass index (BMI) [Ratio] 29.02 kg/m2 Leighton Horvath MD Work Phone: [facility] 01-06-2024 14:30-0500 Body temperature 97.7 [degF] Leighton Horvath MD Work Phone: [facility] 01-06-2024 14:30-0500 Body weight 76.7 kg Leighton Horvath MD Work Phone: [facility] Encounters Encounter Date Encounter Type Care Provider Facility Start: 05-07-2024 End: [facility]07[facility] Start: 01-06-2024 End: 01-07-2024 ambulatory [facility] Start: 01-06-2024 End: 01-06-2024 Office outpatient visit 15 minutes Leighton Horvath MD Work Phone: [facility] Comment on above: Closed displaced fra cture of right acetabulum with routine healing, unspecified portion of acetabulum, subsequent encounter (Primary Dx) Start: 12-09-2023 End: 12-09-2023 ambulatory ANTONIO Stoddard APLING Not Available Start: 10-21-2023 End: 10-21-2023 ambulatory ANTONIO Stoddard APLING Not Available Start: 09-30-2023 End: 10-01-2023 ambulatory ANTONIO Stoddard APLING Not Available Start: 09-20-2023 End: 09-20-2023 ambulatory [facility] Start: 03-08-2023 End: 03-08-2023 ambulatory BECK RENEE Facility: Start: 03-01-2023 End: 03-01-2023 ambulatory BECK RENEE Facility: Start: 02-19-2023 ambulatory BECK RENEE Facility: Start: 02-06-2023 End: 02-06-[address] SON HADLEY Facility: Start: 01-18-2023 End: 01-19-2023 ambulatory BECK RENEE Facility: Start: 01-18-2023 End: 01-18-2023 ambulatory BECK RENEE Facility: Start: 06-26-2022 End: 06-27-2022 ambulatory YOU BARILLAS Facility:[facility] Start: 05-08-2022 End: 05-09-[address] BENNIE ALBRIGHT . Facility: Start: 04-03-2022 End: 04-18-2022 ambulatory LOU RANDHAWA Facility:[facility] Start: 04-01-2022 End: 04-16-2022 Evaluation and management of inpatient Genaro Gordillo Facility:[facility] Start: 03-22-2022 End: 04-01-2022 Evaluation and management of inpatient DR FARSHAD DONALDSON . Facility: Start: 11-02-2021 ambulatory PETRA ARAIZA Facility :[facility] Start: 08-17-2021 ambulatory KRZYSZTOF TRIMBLE Facility:[facility] Start: 07-21-2020 End: 07-21-2020 Patient encounter procedure ARA MEGHNA [facility] Procedures Date Procedure Procedure Detail Performing Clinician Start: 01-06-2024 Follow-up visit Follow-up LEIGHTON HORVATH Start: 04-03-2022 Antibody screen LOU MUNIZ Comment on above: Performed By: #### 8 5499 #### [place] [address] Plan of Treatment Date Care Activity Detail Author Start: 01-06-2025 Adult BMI Screening Adult BMI Screening [facility] Start: 01-06-2025 Tobacco Screening Tobacco Screening [facility] Start: 07-30-2024 End: 07-30-2024 Patient encounter procedure 07/30/2024 1:00 PM EDT Office Visit Amairani Alen Beadle [facility] [address] [place] [phone] Laurel Oakes MD [address] [place] [address] [address] [place] [address] Amairani Lowry Beadle [facility] Start: 07-19-2023 COVID-19 Vaccine ( season) COVID-19 Vaccine ( season) [facility] Start: 07-19-2023 Influenza vaccination Influenza Vaccine [facility] Start: 07-09-2017 Administration of varicella zoster vaccine Zoster (Shingles) Vaccine (1 of 2) [facility] Start: 2004 Fall Risk Screening Fall Risk Screening [facility] Start: 1958 DTaP,Tdap and Td Vaccines (1 - Tdap) DTaP,Tdap and Td Vaccines (1 - Tdap) [facility] Start: 1957 Adult BMI Follow Up Plan Adult BMI Follow Up Plan [facility] Start: 1951 Depression Screening Depression Screening [facility] Start: 1939 Medicare Annual Wellness Visit Medicare Annual Wellness Visit [facility] Immunizations Immunization Date Immunization Notes Care Provider Fa cility 03-08-2022 COVID-19, mRNA, LNP- S, PF, 100mcg/0.5mL Dose Leighton Horvath MD Work Phone: [facility] 08-10-2021 pneumococcal conjuga te vaccine, 13 valent Leighton Horvath MD Work Phone: [facility] 08-22-2020 Influenza, High-dose , Quadrivalent Leighton Horvath MD Work Phone: [facility] 08-22-2020 pneumococcal conjuga te vaccine, 13 valent Leighton Horvath MD Work Phone: [facility] 08-22-2020 influenza virus vacc ine, unspecified formulation Leighton Horvath MD Work Phone: [facility] 05-10-2020 pneumococcal polysaccharide vaccine, 23 valent Leighton Horvath MD Work Phone: [facility] 09-21-2019 influenza, high dose seasonal, preservative-free Leighton Horvath MD Work Phone: [facility] 10-21-2018 influenza, high dose seasonal, preservative-free Leighton Horvath MD Work Phone: [facility] 05-14-2017 zoster vaccine, live Leighton Horvath MD Work Phone: [facility] 05-14-2017 zoster vaccine, unspecified formulation Leighton Horvath MD Work Phone: [facility] 09-10-2016 influenza, high dose seasonal, preservative-free Leighton Horvath MD Work Phone: [facility] 09-10-2016 pneumococcal conjuga te vaccine, 13 faraz Horvath MD Work Phone: [facility] 09-01-2015 influenza, high dose seasonal, preservative-free Leighton Horvath MD Work Phone: [facility] 08-26-2014 influenza, seasonal, injectable Leighton Horvath MD Work Phone: [facility] 08-26-2014 pneumococcal polysaccharide vaccine, 23 valent Leighton Horvath MD Work Phone: [facility] 08-26-2013 influenza, seasonal, injectable Leighton Horvath MD Work Phone: [facility] Payers Date Payer Category Payer Medicare [employer] MEDICARE UHC MEDICARE ADVANTAGE PPO [id number] 2022-Present [phone] [address] [address] [place] [address] [id number] 2021 Medicaid MEDICAID [facility] EDICAID [id number] 2021-Present [phone] [address] [place] [address] [id number] 2019 Medicare [id number] 1960 Medicaid [id number] 1959 Medicare [id number] 1959 Private Health Insurance [id number] 1939 Unknown [id number] 2.16.840.1.129649.3.579. 2.900 1939 Unknown [id number] 2.16.840.1.609813.3.579. 2.594 1939 Unknown [id number] 2.16.840.1.375216.3.579. 2.594 1939 Unknown [id number] 2.16.840.1.527175.3.579. 2.594 1939 Unknown [id number] 2.16.840.1.169900.3.579. 2.647 1939 Unknown [id number] 2.16.840.1.942147.3.579. 2.647 1939 Unknown [id number] 2.16.840.1.419169.3.579. 2.647 1939 Unknown [id number] 2.16.840.1.624644.3.579. 2.593 1939 Unknown [id number] 2.16.840.1.510651.3.579. 2.593 1939 Unknown [id number] 2.16.840.1.621169.3.579. 2.593 1939 Unknown [id number] 2.16.840.1.481884.3.579. 2.593 1939 Unknown [id number] 2.16.840.1.397603.3.579. 2.593 1939 Unknown [id number] 2.16.840.1.072581.3.579. 2.593 1939 Unknown [id number] 2.16.840.1.588509.3.579. 2.593 1939 Unknown [id number] 2.16.840.1.575323.3.579. 2.593 1939 Unknown [id number] 2.16.840.1.988397.3.579. 2.1259 1939 Unknown [id number] 2.16.840.1.483269.3.579. 2.1259 1939 Unknown [id number] 2.16.840.1.922361.3.579. 2.1259 1939 Unknown [id number] 2.16.840.1.154554.3.579. 2.1259 1939 Unknown [id number] 2.16.840.1.073917.3.579. 2.1286 1939 Unknown [id number] 2.16.840.1.117489.3.579. 2.1286 Social History Date Type Detail Facility Start: 02-07-2023 Tobacco smoking stat [facility] Ex-smoker [facility] History of tobacco use Current smoker [facility] History of tobacco use Cigarette Smoker P [facility] Start: 02-07-2023 Tobacco use and exposure Smokeless tobacco non-user [facility] Start: 01-07-2024 Alcohol intake Ex-drinker (finding) [facility] Start: 01-06-2024 End: 01-07-2024 History of Social function [facility] Start: 01-06-2024 End: 01-07-2024 Tobacco use panel [employer] Are you worried or concerned that in the next two months you may not have stable housing that you own, rent or stay in as a part of a household? No [employer] Start: 1940 Sex Assigned At Female P [employer] [facility] Procedure Code Equipment Code Equipment Origin al Text Equipment Identifier Dates Plate Bn 05m5b3m m 1/3 Tblr 6 Hl Colr Ss .5mm 12mm Ns - [id number] Start: 02-08-2023 Screw Bn 26mm 4m m 6mm Sm Hex Sckt Canc Ss 2.5mm Ft Ns Sm - [id number] Start: 02-08-2023 Goals Date Patient Goal Desired Activity /State Personal health goal Comment on above: Formatting of this n ote might be different from the original. Evaluation of progress towards goal: Patient and family are planning to transition to SNF at discharge. Clinical Notes 04-13-2022 to 05-07-2024 Domonique Fernandez MD - 01/06/2024 2:30 PM ESTLeighton Horvath MD - 01/06/2024 2:30 PM EST Note Date & Type Note Facility 05-07-2024 Note Currently denied any recent falls and is ambulatory via W/C [facility] 05-07-[address] [facility] 05-07-2024 Note Stable- no concernin g symptoms or syncope [facility] 05-07-2024 Note [id number]= 4- Age , female, HTN Continue amiodarone and toprol for heart rate and rhythm Per Dr Leos's charting pt had 1 episode of A fib with RVR during acute illness, and no re-occurrence noted, she has h/o anemia and recurrent falls and not a candidate for anticoagulation of which was D/W pt and family and they are agreeable with conservative/ medical management. [facility] 05-07-2024 Note Patient here for 6 m o follow up PAF and wide-complex tachycardia. She was admitted to [facility] in February 2024 for sepsis and pneumonia. Says she feels much better now than she did at that time. Denies chest pain, SOB, palpitations, and lightheadedness/syncope. She doesn't recall falling recently. Review of Systems Musculoskeletal: Positive for muscle weakness. Neurological: Positive for focal weakness and weakness. All other systems reviewed and are negative. [facility] 05-07-2024 Note [facility] CARDIOLOGY PROGR ESS NOTE HPI: María Elena Tafoya is a 83 y.o. female here for routine 6 month F/U HPI Pt presents to clinic for routine F/U for paroxysmal A fib (one episode during acute illness), Anemia, recurrent falls, CLL Patient here for 6 mo follow up PAF and wide-complex tachycardia. She was admitted to [facility] in February 2024 for sepsis and pneumonia. Says she feels much better now than she did at that time. Denies chest pain, SOB, palpitations, and lightheadedness/syncope. She doesn't recall falling recently, is ambulatory via w/c and resides in SNF. Review of Systems Musculoskeletal: Positive for muscle weakness. Neurological: Positive for focal weakness and weakness. All other systems reviewed and are negative. Repeat B/P 140/85 and HR Pt was recently admitted to [facility] for sepsis r/t e coli UTI- 03/02/24 Hospital Course Hospital Course: The patient was admitted with sepsis from pneumonia and a UTI with associated acute respiratory failure with hypoxia, acute metabolic encephalopathy (AMS), and lactic acidosis. She was also positive for rhinovirus on admission. She was treated with IVPB Levaquin and Rocephin, oral steroids, and IV fluids. Her lactic acidosis, altered mentation, hypoxia, and sepsis resolved with these measures. She had persistent leukocytosis likely due to her baseline CLL, exacerbated by steroid administration. As the patient's mentation is back to baseline, she is afebrile x 48 hours, and no longer requires O2 supplementation, she is being discharged back to her home long-term care facility in stable condition. She has been prescribed a 7-day course of Levaquin, and a prednisone taper Previous HPI per Dr Leos HPI María Elena is seen in follow-up. She is a 83-year-old woman who in March 2022 was admitted to the [facility] and then [facility] with acute gallstone pancreatitis, acute blood [...] follows with oncology regarding her blood disorder. Visit Vitals BP 174/80 (BP Location: Right arm, Patient Position: Sitting) Pulse 58 Ht 1.651 m (5' 5 ) Wt 74.4 kg (164 lb) SpO2 93% BMI 27.29 kg/m??? OB Status Postmenopausal Smoking Status Former BSA 1.85 m??? No Known Allergies Medications: Current Outpatient Medications on File Prior to Visit Medication Sig Dispense Refill allopurinol (Zyloprim) 100 mg tablet Take 1 tablet every day by oral route for 30 days. amiodarone (Pacerone) 200 mg tablet Take 1 tablet (200 mg) by mouth every other day. (Patient taking differently: Take 200 mg by mouth in the morning.) 15 tablet 5 amLODIPine (Norvasc) 2.5 mg tablet Take 2.5 mg by mouth in the morning. aspirin 81 mg chewable tablet Chew 1 tablet every day by oral route. calcium carbonate 600 mg calcium (1,500 mg) tablet Take 600 mg by mouth. cholecalciferol (Vitamin D-3) 25 MCG (1000 UT) tablet letrozole (Femara) 2.5 mg chemo tablet Take 1 tablet every day by oral route for 30 days. metoprolol tartrate (Lopressor) 25 mg tablet Take 25 mg by mouth in the morning and at bedtime. [DISCONTINUED] docusate sodium (Colace) 100 mg capsule [DISCONTINUED] traMADol (Ultram) 50 mg tablet No current facility-administered medications on file prior to visit. Physical Exam: Constitutional: Appearance: Normal appearance. Without apparent distress, chronically ill HENT: Head: Normocephalic and atraumatic. Nose: Nose normal. Mouth/Throat: Mouth: Mucous membranes are moist. Eyes: Extraocular Movements: Extraocular movements intact. Conjunctiva/sclera: Conjunctivae normal. Neck: Vascular: No JVD. Cardiovascular: Rate and Rhythm: Normal rate and regular rhythm. Pulses: Dorsalis pedis pulses are 3 on the right side and 3on the left side. Posterior tibial pulses are 3 on the right side and 3 on the left side. Heart sounds: Normal heart sounds, S1 normal and S2 normal. Pulmonary: Effort: Pulmonary effort is normal. Breath sounds: Normal breath sounds. Abdominal: General: Bowel sounds are normal. Palpations: Abdomen is soft. Musculoskeletal: General: Normal range of motion. Ambulatory via W/C Right lower leg: No edema. Left lower leg: No edema. Skin: General: Skin is warm and dry. Capillary Refill: Capillary refil (more content not included)... [facility] 01-06-2024 History of Present illness Narrative CC: S/P ORIF right acetabular [...] Leighton Horvath MD documented in this encounter [facility] 09-20-2023 Note ID Cardiology - [facility] Subjective María Elena Tafoya is a [...] in March 2022 was admitted to the [facility] and then [facility] with acute gallstone pancreatitis, acute blood [...] thickness/hypertrophy. Systolic function (more content not included)... [facility] 04-16-2022 Note MR#: [id number] I [facility] Pt. Name: María Elena Tafoya Admitted: 04/01/2022 [...] by: Genaro Gordillo MD 04/24/2022 12:47 P ____ Genaro Gordillo MD Date Dict: 04/16/2022/09:27 A/Genaro Gordillo MD Date Trans: 04/16/2022 09:55 A/erik DN_[id number] cc: Bennie Albright M.D. [address] [id number] [facility] 04-13-2022 Note MR#: [id number] I [facility] Pt. Name: María Elena Tafoya Admitted: 04/01/2022 [...] history as above, who was transferred from [facility] secondary to gallstone induced acute pancreatitis. She [...] and the patient was admitted to [facility] for further treatment. She was aggressively [...] to repeat a voiding trial at the [place] [facility]-3 days and follow up with provider at that facility, however, her discharge is currently pending precert, so if she does remain at this facility, we may also just discontinue (more content not included)... [facility] Evaluation note Diagnosis Closed displaced fracture of right acetabulum with routine healing, unspecified portion of acetabulum, subsequent encounter- Primary [facility] Summary Purpose Family History No Family History Records FoundNo Family History Records FoundNo Family History Records FoundNo Family History Records FoundNo Family History Records FoundNo Family History Records FoundNo Family History Records FoundNo Family History Records FoundNo Family History Records FoundNo Family History Records Found Advance Directives No Advanced Directives Records FoundDocuments on File Type Date Recorded 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 Advance Directive 01/18/2022 1:07 PM DNR Advance Directive 01/18/2022 11:00 AM [employer] OF SURGERY CONSULTANT Latest Code Status on File Code Status Date Activated Date Inactivated Comments Full Code 02/07/2023 12:03 AM 02/12/2023 3:45 PM Healthcare Agents on File Name Relationship Healthcare Agent Relationship Communication Andreea Liz Health Care Agent [email or web address] Additional Source Comments INFORMATION SOURCE (unrecogn ized section and content) DATE CREATED AUTHOR 02/04/2020 [facility] DATE CREATED AUTHOR AUTHOR'S ORGANIZ ATION 08/23/2020 [facility] DATE CREATED AUTHOR AUTHOR'S ORGANIZ ATION 09/28/2020 [facility] DATE CREATED AUTHOR AUTHOR'S ORGANIZ ATION 02/12/2021 [facility] DATE CREATED AUTHOR AUTHOR'S ORGANIZ ATION 02/07/2022 [facility] DATE CREATED AUTHOR AUTHOR'S ORGANIZ ATION 07/13/2022 [facility] DATE CREATED AUTHOR AUTHOR'S ORGANIZ ATION 03/15/2023 [facility] DATE CREATED AUTHOR AUTHOR'S ORGANIZ ATION 12/09/2023 [facility] dical [facility] DATE CREATED AUTHOR AUTHOR'S ORGANIZ ATION 01/08/2024 [facility] DATE CREATED AUTHOR AUTHOR'S ORGANIZ ATION 05/09/2024 [facility] Reason for Visit (unrecogniz ed section [...] BE BASED ON THE PRIMARY CLINICAL RECORDS. [facility]. provides no warranty or guarantee of the accuracy or completeness of information in this document.
[2024-07-20 18:54] LABS: pH VBG 7.266 (7.330-7.430)
[2024-07-20 18:55] LABS: PCO2 VBG 29.4 mmHg (40.0-52.0)
[2024-07-20 19:04] LABS: Erythrocyte Sedimentation Rate 22 mm/hr (<=30)
--- NOTE | 2024-07-20 19:05 | ED.SOB1 ---
HPI - SOB/Dyspnea General Chief Complaint: Shortness of Breath/Dyspnea Stated Complaint: DIFF BREATHING Time Seen by Provider: 07/20/24 18:32 Source: patient Mode of arrival: ambulance Limitations: no limitations History of Present Illness HPI Narrative: The patient presented to us from a [facility] after she was found throwing up and apparently distressed, patient pulse ox was low when the EMS arrived and she was placed on a nonrebreather, pt moaning and tachypneic using accessory muscles Related Data Home Medications ?Medication ?Instructions ?Recorded ?Confirmed acetaminophen 325 mg tablet 650 mg PO Q4H PRN fever or pain 02/29/24 02/29/24 albuterol sulfate 2.5 mg/3 mL 2.5 mg inhalation Q6H PRN 02/29/24 02/29/24 (0.083 %) solution for nebulization shortness of breath allopurinol 100 mg tablet 100 mg PO DAILY 02/29/24 02/29/24 aluminum-mag hydroxide-simethicone 15 ml PO Q4H PRN indigestion 02/29/24 02/29/24 200 mg-200 mg-20 mg/5 mL oral susp (Advanced Antacid-Antigas) amiodarone 200 mg tablet 200 mg PO DAILY 02/29/24 02/29/24 ascorbic acid (vitamin C) 500 mg 500 mg PO DAILY 02/29/24 02/29/24 tablet (Vitamin C) aspirin 81 mg tablet,delayed 81 mg PO DAILY 02/29/24 02/29/24 release (Adult Aspirin Regimen) calcium carbonate (Calcium 600) 600 mg PO TID 02/29/24 02/29/24 cholecalciferol (vitamin D3) 25 1,000 unit PO DAILY 02/29/24 02/29/24 mcg (1,000 unit) tablet (Vitamin D3) letrozole 2.5 mg tablet 2.5 mg PO BEDTIME 02/29/24 02/29/24 metoprolol tartrate 25 mg tablet 25 mg PO Q12H 02/29/24 02/29/24 multivitamin 1 tab PO BID 02/29/24 02/29/24 polyethylene glycol 3350 17 gram 17 g PO DAILY PRN constipation 02/29/24 02/29/24 oral powder packet (Miralax) sennosides 8.6 mg-docusate sodium 1 tab-cap PO BID PRN constipation 02/29/24 02/29/24 50 mg tablet (Senna with Docusate Sodium) tramadol 50 mg tablet 50 mg PO Q6H PRN pain 02/29/24 02/29/24 Previous Rx's ?Medication ?Instructions ?Recorded levofloxacin 750 mg tablet 750 mg PO DAILY 7 days #7 tabs 03/02/24 prednisone 10 mg tablet See Rx Instructions .Route 03/02/24 .COMPLEX 12 days #42 tabs Allergies Allergy/AdvReac Type Severity Reaction Status Date / Time bacitracin Allergy Intermediate Verified 02/29/24 09:43 dexamethasone [From TobraDex] Allergy Intermediate Verified 02/29/24 09:43 erythromycin base Allergy Intermediate Verified 02/29/24 09:43 ibuprofen Allergy Intermediate Verified 02/29/24 09:43 Iodinated Contrast Media Allergy Intermediate Verified 02/29/24 09:43 Latex, Natural Rubber Allergy Intermediate Verified 02/29/24 09:43 neomycin Allergy Intermediate Verified 02/29/24 09:43 shellfish derived Allergy Intermediate Verified 02/29/24 09:43 Sulfa (Sulfonamide Allergy Intermediate Verified 02/29/24 09:43 Antibiotics) tobramycin [From TobraDex] Allergy Intermediate Verified 02/29/24 09:43 Review of Systems ROS Narrative Not able to obtain due to the patient clinical condition [facility] Medical History (Updated 03/06/24 @ 00:00 by ) Afib ?I48.91 - Unspecified atrial fibrillation (ICD-10) CKD (chronic kidney disease) stage 4, GFR 15-29 ml/min ?N18.4 - Chronic kidney disease, stage 4 (severe) (ICD-10) CLL (chronic lymphocytic leukemia) ?C91.10 - Chronic lymphocytic leukemia of B-cell type not having achieved remission (ICD-10) Broken ankle ?S82.899A - Other fracture of unspecified lower leg, initial encounter for closed fracture (ICD-10) Broken wrist ?S62.109A - Fracture of unspecified carpal bone, unspecified wrist, initial encounter for closed fracture (ICD-10) Diabetes mellitus ?E11.9 - Type 2 diabetes mellitus without complications (ICD-10) Alzheimer's dementia ?G30.9 - Alzheimer's disease, unspecified (ICD-10) ?F02.80 - Dementia in other diseases classified elsewhere, unspecified severity, without behavioral disturbance, psychotic disturbance, mood disturbance, and anxiety (ICD-10) HX: breast cancer ?Z85.3 - Personal history of malignant neoplasm of breast (ICD-10) Surgical History (Updated 02/29/24 @ 12:55 by Alba Jennings LPN) H/O right mastectomy ?Z90.11 - Acquired absence of right breast and nipple (ICD-10) Exam Narrative Exam Narrative: Patient presenting to us tachypneic using accessory muscles and on nonrebreather Abdomen distended and the patient not following commands The patient also have a Celeste Coma Scale less than 8 at the moment Constitutional Vital Signs, click to edit/add: Last Vital Signs Temp 99.6 F 07/20/24 18:34 Pulse 124 H 07/20/24 18:34 Resp 40 H 07/20/24 18:34 BP 97/55 07/20/24 18:34 Pulse Ox 93 L 07/20/24 18:34 O2 Del Method Nonrebreather 07/20/24 18:34 O2 Flow Rate 15 07/20/24 18:34 Course Vital Signs Vital signs: Vital Signs Temperature 99.6 F 07/20/24 18:34 Pulse Rate 124 H 07/20/24 18:34 Respiratory Rate 40 H 07/20/24 18:34 Blood Pressure 97/55 07/20/24 18:34 Pulse Oximetry 93 L 07/20/24 18:34 Oxygen Delivery Method Nonrebreather 07/20/24 18:34 Oxygen Delivery Flow Rate 07/20/24 18:34 Temperature 99.6 F 07/20/24 18:34 Pulse Rate 124 H 07/20/24 18:34 Respiratory Rate 40 H 07/20/24 18:34 Blood Pressure 97/55 07/20/24 18:34 Pulse Oximetry 93 L 07/20/24 18:34 Oxygen Delivery Method Nonrebreather 07/20/24 18:34 Oxygen Delivery Flow Rate 07/20/24 18:34 MDM - SOB/Dyspnea MDM Narrative Medical decision making narrative: The decision was made to intubate the patient upon arrival due to the fact that she is in respiratory distress and Celeste Coma Scale less than 8 Patient had a etomidate Versed and fentanyl provided and she was intubated with 7.5 ET tube initially that tube was placed smoothly but we had to replace it due to the dysfunctional cuff The patient workup just started she is a full code she will be having her care transferred to Dr. Lorenzana Lab Data Labs: Lab Results 07/20/24 07/20/24 Range/Units 18:42 18:45 ESR 22 (<=30) mm/hr PT 15.8 H (9.0-11.6) sec INR 1.56 VBG pH 7.266 L (7.330-7.430) VBG pCO2 29.4 L (40.0-52.0) mmHg SARS-CoV-2 Ag (CV2AG) Negative (NEGATIVE) Discharge Plan Discharge Patient Disposition: Still a Patient
[2024-07-20 19:06] LABS: Internal Control Within Normal Limits; SARS-CoV-2 Ag NEGATIVE (NEGATIVE)
[2024-07-20 19:11] LABS: INR 1.56; Prothrombin Time 15.8 sec (9.0-11.6)
[2024-07-20 19:15] LABS: Alanine Aminotransferase 126 U/L (14-59); Albumin Globulin Ratio 0.7; Albumin Level 2.9 g/dL (3.4-5.0); Alkaline Phosphatase 970 U/L (46-116); Aspartate Amino Transferase 125 U/L (15-37); BUN Creatinine Ratio 19.1; Carbon Dioxide 15.5 mmol/L (21.0-32.0); Chloride 103 mmol/L (98-107); Estimated GFR (African America 25 (>=60); Estimated GFR (Non-African Ame 21 (>=60); Globulin 4.2 g/dL; Glucose 180 mg/dL (74-106); Potassium 4.5 mmol/L (3.5-5.1); Sodium 135 mmol/L (136-145); Total Protein 7.1 g/dL (6.4-8.2)
[2024-07-20] MEDS: 0.9 % SODIUM CHLORIDE 1,000 ML 1000 ML IV ×3 (19:15→22:50)
[2024-07-20 19:21] LABS: C Reactive Protein 1.48 mg/dL (<=0.50)
[2024-07-20 19:22] LABS: Lactate/Lactic Acid 8.2 mmol/L (0.4-2.0); Troponin I High Sensitivity 64.1 pg/mL (4.0-51.3)
[2024-07-20] MEDS: MIDAZOLAM HCL 100 MG in 0.9 % SODIUM CHLORIDE 80 ML IV (19:22)
[2024-07-20 19:23] LABS: Atypical Lymphocytes Abs Man 0.45; Band Neutrophils Absolute 0.5 10^3/uL (0.0-0.3); Lymphocytes Absolute Manual 0.45 10^3/uL (1.20-3.80); Monocytes Absolute Manual 4.51 10^3/uL (0.30-0.80); Segmented Neut Absolute Manual 39.23 10^3/uL (1.4-6.5); White Blood Count 45.1 10^3/uL (4.0-11.0)
[2024-07-20 19:24] LABS: Toxic Granulation 4+; Toxic Vacuolation 3+
[2024-07-20 19:29] LABS: Bilirubin Urine NEGATIVE (NEGATIVE); Blood Urine MODERATE (NEGATIVE); Clarity Urine CLEAR (CLEAR); Color Urine LT. YELLOW (YELLOW); Glucose Urine UA NEGATIVE (NEGATIVE); Ketones Urine NEGATIVE (NEGATIVE); Leukocyte Esterase Urine SMALL (NEGATIVE); Nitrite Urine NEGATIVE (NEGATIVE); Protein Urine 100 mg/dL (NEG/TRACE); Specific Gravity Urine 1.025 (1.005-1.025); Urobilinogen Urine 0.2 EU/dL (0.2-1.0)
[2024-07-20] MEDS: ONDANSETRON PF 4 MG/2 ML VIAL IV (19:29)
[2024-07-20 19:31] LABS: Urine Microscopic Indicated YES
[2024-07-20 19:35] LABS: Bacteria Urine LARGE #/HPF (NONE SEEN); Cast Seen? NONE SEEN #/LPF (NONE SEEN); Crystals Seen? None Seen #/HPF (None Seen); Mucus Urine NONE SEEN (NONE SEEN); RBC Urine 0-2 #/HPF (0-2); Squamous Epithelial Cell Urine NONE SEEN #/LPF (NONE/RARE); Urine Culture Indicated YES; WBC Urine 20-50 #/HPF (NONE SEEN)
--- NOTE | 2024-07-20 19:40 | PC.NURSE ---
[address] Mitchell after medication administered, see JAN. 7.5 tbe and 25 @ lip 1844 Pt does not continue to improve O2 saturation, chest xray performed and read by Dr Mitchell at bedside. Tube placement appears sufficent yet pts O2 saturation has not improved, still 75% while being bagged by RT. 1899 additional medication administered, see JAN. Dr Mitchell removed prvious ET tube and reattempted intubation 7.5 tube, 22 @ lip. Pts oxygenation has improved while being bagged by RT, 98% on . 1904 16fr OG placed by RN, 70 @ lip. Chaney placed by RN.
--- NOTE | 2024-07-20 19:51 | CT_ITS ---
[address] [address] Patient Name: MASSIEL HUNT MRN: [id number] date: 1940 Sex: F Assigned Patient Location: ER Current Patient Location: ER Accession/Order Number: [id number] Exam Date: 07/20/2024 20:15 Report Date: 07/20/2024 22:17 At the request of: WIL WILHELM Procedure: CT abdomen pelvis wo con EXAM: CT chest wo con, CT abdomen pelvis wo con HISTORY: Distress COMPARISON: None. TECHNIQUE: Axial CT imaging was performed through the chest, abdomen, and pelvis without intravenous contrast. Multiplanar reformats were performed. Dose reduction techniques were achieved by using automated exposure control and/or adjustment of mA and/or kV according to patient size and/or use of iterative reconstruction technique. CHEST FINDINGS: Lungs: No pneumothorax. Small bilateral pleural effusions with bilateral lower lobes consolidations. Airways: Patent. Endotracheal tube is in place. Mediastinum: No adenopathy. Aorta: No aneurysm. Cardiac: Normal size. No pericardial effusion. Coronary Arteries: Coronary calcifications are moderate. Pulmonary vasculature: Normal morphology. Bones: No acute bony abnormality. Axilla: No adenopathy. Thyroid gland: No abnormality demonstrated on provided imaging. Soft tissues: Partially visualized rim-enhancing fluid collection in the left breast. Correlation with patient's history and ultrasound is recommended Additional findings: None. ABDOMEN AND PELVIS FINDINGS: GI upper: Unremarkable. Liver: Normal size and contour. Gallbladder: Cholecystectomy. Biliary system: No intra or extrahepatic biliary ductal dilatation. Spleen: Normal size. Pancreas: Unremarkable. Adrenal glands: Normal adrenal glands. Kidneys/ureters: Normal contours. No hydronephrosis. There are multiple right renal stones measuring up to 0.5 cm. Vessels: No aneurysm. Lymph Nodes: No lymphadenopathy. Small bowel: No wall thickening or dilatation. Colon: No wall thickening or dilatation. Appendix: No findings of appendicitis. Peritoneal cavity: No free fluid or pneumoperitoneum. Lower : Unremarkable. Bones: No acute bony abnormality. Status post ORIF of right acetabulum. Soft tissues: No acute finding. Additional findings: None. CT/CT abdomen pelvis wo con IMPRESSION: Small bilateral pleural effusions with bilateral lower lobes consolidations, representing pneumonia. Partially visualized rim-enhancing fluid collection in the left breast. Correlation with patient's history and ultrasound is recommended multiple right renal stones measuring up to 0.5 cm. Electronically authenticated by: JANICE SCHAEFER Date: 07/20/2024 22:17
--- NOTE | 2024-07-20 19:51 | CT_ITS ---
[address] [address] Patient Name: MASSIEL HUNT MRN: [id number] date: 1940 Sex: F Assigned Patient Location: ER Current Patient Location: ER Accession/Order Number: [id number] Exam Date: 07/20/2024 20:15 Report Date: 07/20/2024 22:17 At the request of: WIL WILHELM Procedure: CT chest wo con EXAM: CT chest wo con, CT abdomen pelvis wo con HISTORY: Distress COMPARISON: None. TECHNIQUE: Axial CT imaging was performed through the chest, abdomen, and pelvis without intravenous contrast. Multiplanar reformats were performed. Dose reduction techniques were achieved by using automated exposure control and/or adjustment of mA and/or kV according to patient size and/or use of iterative reconstruction technique. CHEST FINDINGS: Lungs: No pneumothorax. Small bilateral pleural effusions with bilateral lower lobes consolidations. Airways: Patent. Endotracheal tube is in place. Mediastinum: No adenopathy. Aorta: No aneurysm. Cardiac: Normal size. No pericardial effusion. Coronary Arteries: Coronary calcifications are moderate. Pulmonary vasculature: Normal morphology. Bones: No acute bony abnormality. Axilla: No adenopathy. Thyroid gland: No abnormality demonstrated on provided imaging. Soft tissues: Partially visualized rim-enhancing fluid collection in the left breast. Correlation with patient's history and ultrasound is recommended Additional findings: None. ABDOMEN AND PELVIS FINDINGS: GI upper: Unremarkable. Liver: Normal size and contour. Gallbladder: Cholecystectomy. Biliary system: No intra or extrahepatic biliary ductal dilatation. Spleen: Normal size. Pancreas: Unremarkable. Adrenal glands: Normal adrenal glands. Kidneys/ureters: Normal contours. No hydronephrosis. There are multiple right renal stones measuring up to 0.5 cm. Vessels: No aneurysm. Lymph Nodes: No lymphadenopathy. Small bowel: No wall thickening or dilatation. Colon: No wall thickening or dilatation. Appendix: No findings of appendicitis. Peritoneal cavity: No free fluid or pneumoperitoneum. Lower : Unremarkable. Bones: No acute bony abnormality. Status post ORIF of right acetabulum. Soft tissues: No acute finding. Additional findings: None. CT/CT chest wo con IMPRESSION: Small bilateral pleural effusions with bilateral lower lobes consolidations, representing pneumonia. Partially visualized rim-enhancing fluid collection in the left breast. Correlation with patient's history and ultrasound is recommended multiple right renal stones measuring up to 0.5 cm. Electronically authenticated by: JANICE SCHAEFER Date: 07/20/2024 22:17
--- NOTE | 2024-07-20 19:51 | CT_ITS ---
The [address] [address] Patient Name: MASSIEL HUNT MRN: [id number] date: 1940 Sex: F Assigned Patient Location: ER Current Patient Location: ER Accession/Order Number: [id number] Exam Date: 07/20/2024 20:15 Report Date: 07/20/2024 22:27 At the request of: WIL WILHELM Procedure: CT head/brain wo con EXAM: CT head/brain wo con HISTORY: Vomiting and altered mental status. TECHNIQUE: Axial CT scans through the head were obtained without IV contrast administration. Dose reduction techniques were achieved by using: automated exposure control and/or adjustment of mA and/or kV according to patient size and/or use of an iterative reconstruction technique. COMPARISON: 02/29/2024. FINDINGS: Mild periventricular low attenuation in the cerebral hemispheres without associated mass effect. A probable prominent perivascular space in the base of the left basal ganglia is unchanged. The brainstem and the cerebellum appear normal. The ventricular system and cortical sulci are prominent, secondary to cerebral volume loss. No area of abnormal mass effect, edema, or intracranial hemorrhage is shown. The visualized orbits show no abnormal mass. The visualized paranasal sinuses show no air-fluid level. Mastoid air cells are clear. CT/CT head/brain wo con IMPRESSION: 1. Mild old microvascular ischemic change and moderate to severe cerebral atrophy. 2. No acute intracranial process. Electronically authenticated by: CHINYERE LARSEN Date: 07/20/2024 22:27
[2024-07-20 20:00] LABS: ABG PCO2 32.7 mmHg (35.0-45.0); Allen Test POSITIVE (POSITIVE); Base Excess ABG -15.1 mmol/L (-2.0-2.0); Fractionated Inspired Oxygen 100 %; HCO3 ABG 12.9 mmol/L (22.0-26.0); O2 Mode VENT; Oxygen Saturation ABG 97.3 %; Puncture Site L RAD; Rate 20; Tidal Volume 400; Vent Mode A/C
[2024-07-20 20:01] LABS: pH ABG 7.203 (7.350-7.450)
[2024-07-20] MEDS: FENTANYL CITRATE/PF 100 MCG/2 ML VIAL IV (20:20)
[2024-07-20] MEDS: DEXMEDETOMIDINE HCL 200 MCG in 0.9 % SODIUM CHLORIDE 50 ML IV (20:48)
[2024-07-20] MEDS: NOREPINEPHRINE BITARTRATE 4 MG in DEXTROSE 5 % IN WATER 250 ML 30.48 MG IV (20:48)
--- NOTE | 2024-07-20 22:45 | ECG_ITS ---
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
[2024-07-20] MEDS: PIPERACILLIN SODIUM/TAZOBACTAM 4.5 GM in 0.9 % SODIUM CHLORIDE 50 ML IV (22:50)
[2024-07-20 22:59] LABS: ABG PCO2 30.3 mmHg (35.0-45.0); HCO3 ABG 12.6 mmol/L (22.0-26.0); PO2 ABG 79.3 mmHg (80.0-100.0)
[2024-07-20 23:00] LABS: Allen Test POSITIVE (POSITIVE); Fractionated Inspired Oxygen 100 %; O2 Mode VENTILATOR; Puncture Site L RADIAL; Rate 20; Tidal Volume 400; Vent Mode A/C; pH ABG 7.228 (7.350-7.450)
[2024-07-20 23:30] LABS: Lactate/Lactic Acid 3.4 mmol/L (0.4-2.0); Troponin I High Sensitivity 65.7 pg/mL (4.0-51.3)
[2024-07-20] MEDS: SODIUM BICARBONATE 150 MEQ in DEXTROSE 5 % IN WATER 1,000 ML IV (23:36)
[2024-07-20 23:44] LABS: Glucometer 193 mg/dL (74-106)
--- NOTE | 2024-07-20 23:55 | RESP.RT ---
Peep was increased from 5 up to [address] Lorenzana.
[2024-07-21] VITALS (8 sets, daily range): BP systolic 78–91; BP diastolic 33–58; PULSE 74–84; O2SAT 93–96
[2024-07-21] MEDS: HYDROCORTISONE SODIUM SUCC PF 100 MG/2 ML VIAL IVP (00:01)
[2024-07-21] MEDS: VASOPRESSIN IV (00:01)
[2024-07-21] MEDS: SODIUM CHLORIDE 0.9% IV (00:01)
[2024-07-21] MEDS: NOREPINEPHRINE BITARTRATE 4 MG in DEXTROSE 5 % IN WATER 250 ML 76.2 MG IV (00:49)
[2024-07-21] MEDS: DEXMEDETOMIDINE HCL 200 MCG in 0.9 % SODIUM CHLORIDE 50 ML 14.152 MCG IV (00:52)
[2024-07-21 08:45] LABS: A. calcoaceticus-baumannii Cpx NOT DETECTED (NOT DETECTE); Bacteroides fragilis NOT DETECTED (NOT DETECTE); Candida albicans NOT DETECTED (NOT DETECTE); Candida auris NOT DETECTED (NOT DETECTE); Candida glabrata NOT DETECTED (NOT DETECTE); Candida krusei NOT DETECTED (NOT DETECTE); Candida parapsilosis NOT DETECTED (NOT DETECTE); Candida tropicalis NOT DETECTED (NOT DETECTE); Cryptococcus neoformans/gattii NOT DETECTED (NOT DETECTE); Enterobacter cloacae complex NOT DETECTED (NOT DETECTE); Enterococcus faecalis NOT DETECTED (NOT DETECTE); Enterococcus faecium NOT DETECTED (NOT DETECTE); Haemophilus influenzae NOT DETECTED (NOT DETECTE); Klebsiella aerogenes NOT DETECTED (NOT DETECTE); Klebsiella pneumoniae group NOT DETECTED (NOT DETECTE); Listeria monocytogenes NOT DETECTED (NOT DETECTE); Neisseria meningitidis NOT DETECTED (NOT DETECTE); Proteus spp. NOT DETECTED (NOT DETECTE); Pseudomonas aeruginosa NOT DETECTED (NOT DETECTE); Salmonella spp. NOT DETECTED (NOT DETECTE); Serratia marcescens NOT DETECTED (NOT DETECTE); Staphylococcus epidermidis NOT DETECTED (NOT DETECTE); Staphylococcus lugdunensis NOT DETECTED (NOT DETECTE); Staphylococcus spp. NOT DETECTED (NOT DETECTE); Stenotrophomonas maltophilia NOT DETECTED (NOT DETECTE); Streptococcus agalactiae NOT DETECTED (NOT DETECTE); Streptococcus pneumoniae NOT DETECTED (NOT DETECTE); Streptococcus pyogenes NOT DETECTED (NOT DETECTE); Streptococcus spp. NOT DETECTED (NOT DETECTE)
[2024-07-21 10:02] LABS: CTX-M NOT DETECTED (NOT DETECTE); IMP NOT DETECTED (NOT DETECTE); KPC NOT DETECTED (NOT DETECTE); NDM NOT DETECTED (NOT DETECTE); OXA-48-like NOT DETECTED (NOT DETECTE); mcr-1 NOT DETECTED (NOT DETECTE)
[2024-07-21 10:03] LABS: Source Blood; VIM NOT DETECTED (NOT DETECTE)
[2024-07-21 10:05] LABS: Enterobacterales DETECTED (NOT DETECTE)
== END 2024-07-21 01:23 | disposition short-term general hospital (02) ==
PROVIDERS: Physician Assistant; Emergency Provider Student in an Organized Health Care Education/Training Program; PCP Family Medicine
DX: A41.9 Sepsis, unspecified organism (principal); R65.21 Severe sepsis with septic shock; J96.01 Acute respiratory failure with hypoxia; J69.0 Pneumonitis due to inhalation of food and vomit; I95.89 Other hypotension
CPT/HCPCS: 31500; 36415; 36600; 51702; 70450; 71045; 71250; 74176; 80053; 81001; 82800; 82805; 83605; 83880; 84484; 85007; 85027; 85610; 85652; 86140; 87040; 87086; 87150; 87186; 87811; 93005; 94002; 94003; 96365; 96366; 96367; 96368; 96375; 96376; 99291; 99292; J1720; J2250; J2405; J2543; J2599; J3010